=== PATIENT | female | born 1970 | race Two or more races ===

== ENCOUNTER → 2020-09-05 13:30 | Outpatient (BNVA) | payer OTHER, SELFPAY | PROVIDERS: Visit Provider Internal Medicine | DX: E03.9 Hypothyroidism, unspecified (principal); E04.9 Nontoxic goiter, unspecified; E83.52 Hypercalcemia; Z79.899 Other long term (current) drug therapy | CPT/HCPCS: 99214 ==

== ENCOUNTER → 2020-10-13 12:46 | Outpatient (BNVA) | payer OTHER, SELFPAY | PROVIDERS: PCP Family Medicine; Visit Provider Anesthesiology | DX: E04.2 Nontoxic multinodular goiter (principal); M46.1 Sacroiliitis, not elsewhere classified; E66.01 Morbid (severe) obesity due to excess calories | CPT/HCPCS: 99202 ==

== ENCOUNTER 2020-10-28 12:36 | Outpatient (REF) | payer OTHER, SELFPAY ==
--- NOTE | 2020-10-28 12:39 | CT_ITS ---
EXAMINATION: CT SOFT TISSUE NECK WITH CONTRAST CLINICAL INFORMATION: Nontoxic goiter. Enlarged lymph nodes. COMPARISON: Thyroid ultrasound from 07/13/2020. CT neck from 05/20/2020. TECHNIQUE: Multidetector helical imaging was performed in the axial plane following the administration of 60 mL of Omnipaque 350 intravenous contrast. Multiple axial reformats and coronal/sagittal reconstructions were created the technologist workstation for review. This CT examination was performed using dose optimization techniques as appropriate, variously including the following: *Automated exposure control. *Adjustment of mA and/or kV according to patient size (this includes techniques or standardized protocols for targeted exams where dose is matched to indication/reason for exam; i.e. extremities or head). *Use of iterative reconstruction technique. DLP: 401 mGy-cm FINDINGS: Generalized enlargement of a relatively homogeneous thyroid gland (left lobe 3.2 x 2.2 x 6.7 cm and right lobe 3.6 x 1.8 x 7.2 cm). No focal lesions demonstrated. A mildly prominent right level Ib lymph node measures up to 1.3 cm. A cluster of mildly prominent left level Ib lymph nodes are unchanged compared to 05/20/2020. Mildly prominent right level IIa lymph node measures up to 1.4 cm. A mildly prominent left level III lymph node measures up to 1 cm. Otherwise, scattered shotty subcentimeter lymph nodes bilaterally may be slightly increased in number but remain non-pathologically enlarged without abnormal enhancement. Otherwise, No significant cutaneous thickening or subcutaneous inflammation. No discrete fluid collection within the deep tissues of the neck. The premaxillary, retromaxillary, pterygopalatine fossa, orbital apical, parapharyngeal, and prelaryngeal adipose tissue is maintained. Normal appearance of the parotid and submandibular glands. No focal lesion or abnormal enhancement within the intrinsic tissues of the tongue or floor of mouth. Mild prominence of the palatine tonsils with partial narrowing of the oral airway. No focal tonsillar lesion or collection demonstrated. Otherwise, normal mucosal contours of the pharynx and larynx without abnormal enhancement. Normal appearance of the hyoid bone, thyroid cartilage, or cartilaginous trachea. The remainder of the airway remains widely patent. No radiopaque foreign bodies. The atlantooccipital and atlantoaxial articulations remain well aligned. There is anatomic alignment of the vertebral bodies and posterior elements. No evidence of acute fracture or subluxation of the cervical spine. The vertebral body heights are maintained. Mild multilevel degenerative spinal arthropathy of the cervical spine with mild to moderate degenerative disc disease at C5-C6 and C6-C7. No evidence of epidural collection. There is no prevertebral soft tissue swelling. Normal opacification of the cervical arterial and venous structures. The visualized portion of the skull base is without significant abnormalities. Mild mucosal thickening of the paranasal sinuses. Mild rightward nasal septal deviation. The mastoids are congenitally underpneumatized. Trace bilateral mastoid effusions. Prominent odontogenic cyst associated with the root of the maxillary right lateral incisor. CT Upper Chest: The visualized lung apices and upper mediastinum are within normal limits. CT/CT soft tissue neck w con IMPRESSION: 1. Generalized homogeneous enlargement of the thyroid gland, similar to prior exams. 2. Mildly prominent upper cervical chain lymph nodes are unchanged compared to 05/20/2020. No new pathologically enlarged cervical lymphadenopathy. 3. Redemonstrated odontogenic cyst associated with the maxillary right lateral incisor.
[2020-10-28] MEDS: iohexoL 350 MG/ML 100 ML INFUS..BTL IV (13:51)
== END 2020-10-28 12:37 | disposition home or self-care (01) ==
LOC: HO.CT 12:36
PROVIDERS: PCP Family Medicine; Visit Provider Family Medicine
DX: R59.9 Enlarged lymph nodes, unspecified (principal)
CPT/HCPCS: 70491; Q9967

== ENCOUNTER → 2020-10-31 07:56 | Outpatient (BNVA) | payer OTHER, SELFPAY | PROVIDERS: PCP Family Medicine; Visit Provider Internal Medicine | DX: Z13.89 Encounter for screening for other disorder (principal) | CPT/HCPCS: Q3014 ==

== ENCOUNTER 2020-11-10 13:09 | Outpatient (REF) | payer OTHER, SELFPAY | END 2020-11-10 13:10 | disposition home or self-care (01) | LOC: HO.LAB 13:09 | PROVIDERS: PCP Family Medicine; Visit Provider Internal Medicine | DX: Z20.828 Contact with and (suspected) exposure to other viral communicable diseases (principal) | CPT/HCPCS: C9803; U0003 ==

== ENCOUNTER 2020-12-13 12:32 | Outpatient (REF) | payer OTHER, SELFPAY ==
--- NOTE | 2020-12-13 12:41 | ECG_ITS ---
Test Reason : PREPROC EXAM Blood Pressure : / mmHG Vent. Rate : 082 BPM Atrial Rate : 082 BPM P-R Int : 174 ms QRS Dur : 110 ms QT Int : 398 ms P-R-T Axes : 065 -15 060 degrees QTc Int : 464 ms Normal sinus rhythm with sinus arrhythmia Incomplete right bundle branch block Borderline ECG When compared with ECG of 18-JUN-2013 14:13, Incomplete right bundle branch block is now Present Referred By: Linda Murphy Electronically Signed By:ISIDRA SALAZAR MD
--- NOTE | 2020-12-13 12:57 | XR_ITS ---
EXAMINATION: XR CHEST CLINICAL INFORMATION: Laura deficiency related endometrial goiter COMPARISON: Chest x-ray 07/13/2020 TECHNIQUE: 2 views of the chest were obtained. FINDINGS: No significant abnormality is noted involving the heart, lungs, mediastinum, bony thorax or soft tissues. XR/XR chest 2V IMPRESSION: Unremarkable chest examination. No change from 07/13/2020
[2020-12-13 14:20] LABS: Hematocrit 38.6 % (37-47); Hemoglobin 12.7 g/dl (12.0-16.0); Mean Corpuscular HGB Conc 32.9 g/dl (31.0-35.0); Mean Corpuscular Hemoglobin 28.1 pg (27.0-33.0); Mean Corpuscular Volume 85.4 fL (80-98); Mean Platelet Volume 10.3 fL (9.4-12.3); Platelet Count 334 X10*3/uL (160-400); Red Blood Count 4.52 X10*6/uL (4.20-5.50); Red Cell Distribution Width 12.7 % (11.0-16.0); White Blood Count 15.7 X10*3/uL (4.8-10.8)
[2020-12-13 14:44] LABS: Alanine Aminotransferase 39 U/L (0-31); Albumin Level 4.4 g/dL (3.5-5.0); Alkaline Phosphatase 94 U/L (39-117); Anion Gap 14 (12-20); Aspartate Amino Transferase 23 U/L (5-31); Bilirubin Total 0.5 mg/dL (0.0-1.0); Blood Urea Nitrogen 11 mg/dL (9-16); Calcium 9.8 mg/dL (8.4-10.2); Carbon Dioxide 26 mmol/L (22-29); Chloride 101 mmol/L (96-108); Estimated Glomerular Filt Rate > 60; Glucose Random 140 mg/dL (60-115); Sodium 137 mmol/L (135-145); Total Protein 7.4 g/dL (6.5-8.0)
== END 2020-12-13 12:33 | disposition home or self-care (01) ==
LOC: HO.LAB 12:32
PROVIDERS: Absent Provider Family Medicine; PCP Family Medicine; Visit Provider Family Medicine
DX: Z01.818 Encounter for other preprocedural examination (principal); E01.0 Iodine-deficiency related diffuse (endemic) goiter
CPT/HCPCS: 36415; 71046; 80053; 85027; 93005

== ENCOUNTER 2020-12-27 12:47 | Outpatient (REF) | payer OTHER, SELFPAY ==
--- NOTE | ~2020-12-27 | XR_ITS ---
EXAMINATION: XR RIBS, RIGHT CLINICAL INFORMATION: Pleurodynia. Rib pain for 5 months COMPARISON: Chest x-ray 12/13/2020 TECHNIQUE: 3 views of the right ribs were obtained. FINDINGS: Lungs are clear. No consolidation, pneumothorax, or pleural effusion. The cardiomediastinal silhouette and pulmonary vasculature are normal. Osseous structures are unremarkable. Ribs are intact. No fractures are identified. XR/XR ribs RT 2V IMPRESSION: No displaced right rib fracture.
[2020-12-27 14:10] LABS: Hematocrit 36.9 % (37-47); Hemoglobin 12.2 g/dl (12.0-16.0); Mean Corpuscular HGB Conc 33.1 g/dl (31.0-35.0); Mean Corpuscular Hemoglobin 28.5 pg (27.0-33.0); Mean Corpuscular Volume 86.2 fL (80-98); Platelet Count 327 X10*3/uL (160-400); Red Blood Count 4.28 X10*6/uL (4.20-5.50); Red Cell Distribution Width 13.1 % (11.0-16.0); White Blood Count 13.7 X10*3/uL (4.8-10.8)
[2020-12-27 14:15] LABS: Glucose Urine UA NEG (NEG); Leukocyte Esterase Urine TRACE (NEG); Nitrite Urine NEG (NEG); Specific Gravity - Urine <= 1.005 (1.005-1.025); Urine Blood NEG (NEG); Urine Ketones NEG (NEG); Urine Protein NEG (NEG-TRACE)
[2020-12-27 14:16] LABS: Appearance Urine CLEAR; Color Urine STRAW
[2020-12-27 14:36] LABS: Creatinine Urine 31.93 mg/dL; Microalbumin Urine < 5.0 mg/L
[2020-12-27 14:37] LABS: Estimated Average Glucose 180 mg/dL; Hemoglobin A1c % 7.9 %
[2020-12-27 14:38] LABS: Bacteria Urine TRACE /LPF; RBC Urine 0 /HPF (0); Squamous Epithelial Cell Urine 2+ /LPF; WBC Urine 0-2 /HPF (0-4)
[2020-12-27 14:41] LABS: Albumin Level 4.1 g/dL (3.5-5.0); Calcium 8.9 mg/dL (8.4-10.2); Phosphorus 2.6 mg/dL (2.7-4.5)
[2020-12-27 14:43] LABS: Alanine Aminotransferase 30 U/L (0-31); Albumin Level 4.1 g/dL (3.5-5.0); Alkaline Phosphatase 84 U/L (39-117); Anion Gap 13 (12-20); Aspartate Amino Transferase 19 U/L (5-31); Bilirubin Direct < 0.2 mg/dL (0.0-0.5); Bilirubin Total 0.4 mg/dL (0.0-1.0); Blood Urea Nitrogen 10 mg/dL (9-16); Calcium 8.7 mg/dL (8.4-10.2); Carbon Dioxide 27 mmol/L (22-29); Chloride 100 mmol/L (96-108); Cholesterol 112 mg/dL; Estimated Glomerular Filt Rate 59; Glucose Random 216 mg/dL (60-115); HDL Cholesterol 33 mg/dL; LDL Cholesterol Calculated 42 mg/dl; Sodium 136 mmol/L (135-145); Total Protein 6.7 g/dL (6.5-8.0); Triglycerides 189 mg/dL
[2020-12-27 14:58] LABS: Free T4 (Free Thyroxine) 1.37 ng/dL (0.71-1.85); Vitamin D 25-OH Total 46.1 ng/mL (>30)
[2020-12-27 15:07] LABS: Free T4 (Free Thyroxine) 1.24 ng/dL (0.71-1.85); Thyroid Stimulating Hormone 0.01 uIU/mL (0.32-4.0)
[2020-12-28 10:22] LABS: PTHI 42 pg/mL (14-64)
[2020-12-28 11:11] LABS: Alpha Fetoprotein 2.6 ng/mL
== END 2020-12-27 12:48 | disposition home or self-care (01) ==
LOC: HO.LAB 12:47
PROVIDERS: Absent Provider Internal Medicine; PCP Family Medicine; Visit Provider Family Medicine
DX: E83.52 Hypercalcemia (principal); E03.9 Hypothyroidism, unspecified; E04.2 Nontoxic multinodular goiter; R07.81 Pleurodynia; E11.9 Type 2 diabetes mellitus without complications
CPT/HCPCS: 36415; 71100; 80048; 80061; 80076; 81001; 82040; 82043; 82105; 82306; 82310; 83036; 83970; 84100; 84439; 84443; 85027

== ENCOUNTER → 2021-01-19 08:51 | Outpatient (BNVA) | payer OTHER, SELFPAY | PROVIDERS: PCP Family Medicine; Visit Provider Internal Medicine | DX: E04.9 Nontoxic goiter, unspecified (principal); E03.9 Hypothyroidism, unspecified; E83.52 Hypercalcemia | CPT/HCPCS: 99212 ==

== ENCOUNTER → 2021-04-24 08:54 | Outpatient (BNVA) | payer OTHER, SELFPAY | PROVIDERS: Visit Provider Internal Medicine | CPT/HCPCS: Q3014 ==

== ENCOUNTER 2021-05-02 13:14 | Outpatient (REF) | payer OTHER, SELFPAY ==
[2021-05-02 14:42] LABS: Alanine Aminotransferase 25 U/L (0-31); Albumin Level 4.3 g/dL (3.5-5.0); Alkaline Phosphatase 107 U/L (39-117); Anion Gap 12 (12-20); Aspartate Amino Transferase 18 U/L (5-31); Bilirubin Total 0.4 mg/dL (0.0-1.0); Blood Urea Nitrogen 11 mg/dL (9-16); Calcium 9.7 mg/dL (8.4-10.2); Carbon Dioxide 28 mmol/L (22-29); Chloride 104 mmol/L (96-108); Estimated Glomerular Filt Rate 45; Glucose Random 119 mg/dL (60-115); Potassium 4.2 mmol/L (3.3-5.1); Sodium 140 mmol/L (135-145); Total Protein 7.1 g/dL (6.5-8.0)
[2021-05-02 15:04] LABS: Vitamin D 25-OH Total 47.6 ng/mL (>30)
[2021-05-03 14:27] LABS: Calcium (PTHI) 9.7 mg/dL (8.6-10.2); PTHI 21 pg/mL (14-64)
== END 2021-05-02 13:15 | disposition home or self-care (01) ==
LOC: HO.LAB 13:14
PROVIDERS: Absent Provider Surgery; PCP Family Medicine; Referring Provider Internal Medicine; Visit Provider Internal Medicine
DX: E55.9 Vitamin D deficiency, unspecified (principal); E89.0 Postprocedural hypothyroidism
CPT/HCPCS: 36415; 80053; 82306; 83970

== ENCOUNTER 2021-06-26 13:13 | Outpatient (REF) | payer OTHER, SELFPAY ==
[2021-06-26 14:22] LABS: Albumin Level 4.3 g/dL (3.5-5.0); Calcium 9.3 mg/dL (8.4-10.2)
[2021-06-26 14:51] LABS: Free T4 (Free Thyroxine) 0.72 ng/dL (0.71-1.85); Thyroid Stimulating Hormone 28.57 uIU/mL (0.32-4.0)
[2021-06-27 16:31] LABS: Calcium (PTHI) 9.5 mg/dL (8.6-10.2); PTHI 27 pg/mL (14-64)
[2021-06-28 02:12] LABS: Thyroglobulin 0.4 ng/mL; Thyroglobulin Antibodies <1 IU/mL (< or = 1)
== END 2021-06-26 13:14 | disposition home or self-care (01) ==
LOC: HO.LAB 13:13
PROVIDERS: PCP Family Medicine; Visit Provider Internal Medicine
DX: E55.9 Vitamin D deficiency, unspecified (principal); Z85.850 Personal history of malignant neoplasm of thyroid
CPT/HCPCS: 36415; 82040; 82310; 83970; 84432; 84439; 84443; 86800

== ENCOUNTER → 2021-07-26 07:57 | Outpatient (BNVA) | payer OTHER, SELFPAY | PROVIDERS: PCP Family Medicine; Visit Provider Internal Medicine | DX: E55.9 Vitamin D deficiency, unspecified (principal); E89.0 Postprocedural hypothyroidism; Z85.850 Personal history of malignant neoplasm of thyroid | CPT/HCPCS: Q3014 ==

== ENCOUNTER 2021-07-27 13:18 | Outpatient (REF) | payer OTHER, SELFPAY ==
--- NOTE | ~2021-07-27 | US_ITS ---
EXAMINATION: US PELVIS CLINICAL INFORMATION: Pelvic pain COMPARISON: CT pelvis from 10/23/2019. Ultrasound pelvis from 11/19/2019. TECHNIQUE: Ultrasound of the pelvis is performed using both transabdominal and transvaginal transducers along with color Doppler. Transvaginal imaging is performed due to inadequate visualization transabdominally. FINDINGS: Uterus: The uterus is anteverted and anteflexed. It measures approximately 9.9 x 4.4 x 4.8 cm (cervix to fundus x AP x transverse dimensions). The endometrium has normal homogeneous echotexture and measures up to 1.1 cm AP. No evidence of endometrial polyp. 0.9 x 1 x 0.9 cm fibroid of heterogeneous, predominantly hyperechoic echotexture is present in the anterior uterine body. A small 0.9 x 0.4 0.8 cm hypoechoic structure in the lower posterior uterine body might represent a degenerated leiomyoma. No suspicious uterine lesion. Adnexa: The right ovary is obscured by bowel on the transvaginal images. On the transabdominal images, the right ovary has normal echotexture and measures 2.7 x 1.5 x 2.3 cm, volume of 4.9 mL. No ovarian mass. The left ovary measures 2.6 x 2.3 x 2.7 cm, volume of 8.5 mL. A 2 x 1.8 x 1.6 cm simple cyst is present within the left ovary. Previously, simple cyst measuring up to 2.8 cm was observed in the left ovary on 11/19/2019. This cyst is almost certainly benign. No follow-up imaging is recommended for an asymptomatic ovarian cyst. Free fluid: None detected. US/US pelvic and transvaginal IMPRESSION: * Small uterine leiomyomas. * Simple cyst of the left ovary has decreased in size compared to 11/19/2019. No suspicious ovarian lesion.
[2021-07-27 15:06] LABS: Free T4 (Free Thyroxine) 0.76 ng/dL (0.71-1.85); Thyroid Stimulating Hormone 56.13 uIU/mL (0.32-4.0)
[2021-07-28 17:32] LABS: Thyroglobulin 0.7 ng/mL; Thyroglobulin Antibodies <1 IU/mL (< or = 1)
== END 2021-07-27 13:19 | disposition home or self-care (01) ==
LOC: HO.US 13:18
PROVIDERS: Internal Medicine; PCP Family Medicine; Visit Provider Emergency Medicine
DX: R10.2 Pelvic and perineal pain (principal); Z85.850 Personal history of malignant neoplasm of thyroid
CPT/HCPCS: 36415; 76830; 76856; 84432; 84439; 84443; 86800

== ENCOUNTER 2021-08-30 10:16 | Outpatient (REF) | payer OTHER, SELFPAY ==
[2021-08-30 11:55] LABS: Free T4 (Free Thyroxine) 0.88 ng/dL (0.71-1.85); Thyroid Stimulating Hormone 82.48 uIU/mL (0.32-4.0)
[2021-09-01 04:06] LABS: Triiodothyronine T3 Total 67 ng/dL (76-181)
== END 2021-08-30 10:17 | disposition home or self-care (01) ==
LOC: HO.LAB 10:16
PROVIDERS: Visit Provider Internal Medicine
DX: E03.9 Hypothyroidism, unspecified (principal)
CPT/HCPCS: 36415; 84439; 84443; 84480

== ENCOUNTER 2021-09-29 10:38 | Outpatient (REF) | payer OTHER, SELFPAY ==
[2021-09-29 11:55] LABS: Free T4 (Free Thyroxine) 0.85 ng/dL (0.71-1.85); HCG Quantitative < 2 mIU/mL; Thyroid Stimulating Hormone 78.36 uIU/mL (0.32-4.0)
[2021-10-02 19:47] LABS: Thyroglobulin 2.6 ng/mL; Thyroglobulin Antibodies <1 IU/mL (< or = 1)
== END 2021-09-29 10:39 | disposition home or self-care (01) ==
LOC: HO.LAB 10:38
PROVIDERS: PCP Family Medicine; Visit Provider Internal Medicine
DX: E89.0 Postprocedural hypothyroidism (principal)
CPT/HCPCS: 36415; 84432; 84439; 84443; 84702; 86800

== ENCOUNTER 2021-11-15 13:46 | Outpatient (REF) | payer OTHER, SELFPAY ==
[2021-11-15 15:10] LABS: Phosphorus 2.4 mg/dL (2.7-4.5)
[2021-11-15 15:34] LABS: Free T4 (Free Thyroxine) 0.85 ng/dL (0.71-1.85); Thyroid Stimulating Hormone 90.49 uIU/mL (0.32-4.0); Vitamin D 25-OH Total 50.8 ng/mL (>30)
[2021-11-16 12:26] LABS: Calcium (PTHI) 9.2 mg/dL (8.6-10.2); PTHI 38 pg/mL (14-64)
[2021-11-16 19:42] LABS: Thyroglobulin 6.6 ng/mL; Thyroglobulin Antibodies <1 IU/mL (< or = 1)
== END 2021-11-15 13:47 | disposition home or self-care (01) ==
LOC: HO.LAB 13:46
PROVIDERS: PCP Family Medicine; Visit Provider Internal Medicine
DX: E55.9 Vitamin D deficiency, unspecified (principal); Z85.850 Personal history of malignant neoplasm of thyroid
CPT/HCPCS: 36415; 82306; 83970; 84100; 84432; 84439; 84443; 86800

== ENCOUNTER → 2021-11-22 08:01 | Outpatient (BNVA) | payer OTHER, SELFPAY | PROVIDERS: PCP Family Medicine; Visit Provider Internal Medicine | DX: E89.0 Postprocedural hypothyroidism (principal); E55.9 Vitamin D deficiency, unspecified; Z85.850 Personal history of malignant neoplasm of thyroid | CPT/HCPCS: Q3014 ==

== ENCOUNTER 2021-11-29 13:59 | Outpatient (REF) | payer OTHER, SELFPAY ==
[2021-11-29 14:28] LABS: MANUAL DIFF FLAG NO
[2021-11-29 14:43] LABS: Basophils Percent Auto 0.4 % (0-2); Eosinophils Absolute Auto 0.2 X10*3/uL (0.0-0.4); Eosinophils Percent Auto 1.7 % (0-4); Hematocrit 34.6 % (37.0-47.0); Hemoglobin 11.6 g/dl (12.0-16.0); Imm Gran Abs Auto 0.05 X10*3/uL (0.00-0.03); Imm Gran Pct Auto 0.5 % (0.0-0.4); Lymphocytes Absolute Auto 2.5 X10*3/uL (1.2-4.9); Lymphocytes Percent Auto 24.2 % (20-40); Mean Corpuscular HGB Conc 33.5 g/dl (31.0-35.0); Mean Corpuscular Hemoglobin 28.8 pg (27.0-33.0); Mean Corpuscular Volume 85.9 fL (80.0-98.0); Mean Platelet Volume 9.9 fL (9.4-12.3); Monocytes Absolute Auto 0.8 X10*3/uL (0.1-1.2); Monocytes Percent Auto 7.4 % (2-11); Neutrophils Absolute Auto 6.8 x10*3/uL (2.0-8.3); Neutrophils Percent Auto 65.8 % (45-73); Platelet Count 296 X10*3/uL (160-400); Red Blood Count 4.03 X10*6/uL (4.20-5.50); Red Cell Distribution Width 13.6 % (11.0-16.0); White Blood Count 10.3 X10*3/uL (4.8-10.8)
[2021-11-29 14:50] LABS: Estimated Average Glucose 169 mg/dL; Hemoglobin A1c % 7.5 %
[2021-11-29 15:03] LABS: Alanine Aminotransferase 25 U/L (0-31); Albumin Level 4.1 g/dL (3.5-5.0); Alkaline Phosphatase 86 U/L (39-117); Anion Gap 14 (12-20); Aspartate Amino Transferase 20 U/L (5-31); Bilirubin Direct < 0.2 mg/dL (0.0-0.5); Bilirubin Total 0.2 mg/dL (0.0-1.0); Blood Urea Nitrogen 13 mg/dL (9-16); Calcium 9.6 mg/dL (8.4-10.2); Carbon Dioxide 27 mmol/L (22-29); Chloride 100 mmol/L (96-108); Cholesterol 138 mg/dL; Estimated Glomerular Filt Rate 46; Glucose Random 194 mg/dL (60-115); HDL Cholesterol 36 mg/dL; LDL Cholesterol Calculated 45 mg/dl; Potassium 4.2 mmol/L (3.3-5.1); Sodium 137 mmol/L (135-145); Total Protein 7.2 g/dL (6.5-8.0); Triglycerides 289 mg/dL
[2021-11-29 15:21] LABS: Immature Retic Fraction 24.4 % (3.0-15.9); Retic HGB Equivalent 32.3 pg (30.0-35.0); Reticulocyte Percent 2.5 % (0.5-1.8); Reticulocytes Absolute 0.102 X10*6/uL (0.026-0.095)
[2021-11-29 15:24] LABS: Thyroid Stimulating Hormone 0.36 uIU/mL (0.32-4.0); Vitamin D 25-OH Total 42.7 ng/mL (>30)
[2021-11-29 15:35] LABS: Iron 51 mcg/dL (30-160); Percent Iron Saturation 16 % (15-50); Total Iron Binding Capacity 315 mcg/dL (228-428); Unsaturated Iron Binding 264 ug/dL
[2021-11-29 15:36] LABS: Folate > 20.0 ng/mL (> or = 4.0); Vitamin B12 326 pg/mL (200-900)
[2021-11-29 16:01] LABS: Creatinine Urine 28.63 mg/dL; Microalbumin Urine < 5.0 mg/L
[2021-12-01 13:00] LABS: Alpha Fetoprotein 2.6 ng/mL
== END 2021-11-29 14:00 | disposition home or self-care (01) ==
LOC: HO.LAB 13:59
PROVIDERS: Internal Medicine; PCP Family Medicine; Visit Provider Family Medicine
DX: D64.9 Anemia, unspecified (principal); D72.829 Elevated white blood cell count, unspecified; E11.9 Type 2 diabetes mellitus without complications; E78.5 Hyperlipidemia, unspecified; K76.0 Fatty (change of) liver, not elsewhere classified
CPT/HCPCS: 36415; 80048; 80061; 80076; 82043; 82105; 82306; 82607; 82746; 83036; 83540; 84439; 84443; 85025; 85045

== ENCOUNTER 2021-12-29 11:36 | Outpatient (REF) | payer OTHER, SELFPAY ==
--- NOTE | ~2021-12-29 | XR_ITS ---
EXAMINATION: XR LUMBOSACRAL SPINE CLINICAL INFORMATION: Low back pain and left-sided sciatica COMPARISON: Previous x-ray December 2019 TECHNIQUE: Three views of the lumbosacral spine. FINDINGS: There is a transitional vertebral body segment. For the purposes of this dictation, segments are designated with the transitional segment inferiorly with sacralization of the left transverse process. Bone alignment is normal. No fracture or dislocation is seen. There is mild spondylosis and degenerative disc disease at L4-L5. There is mild degenerative spondylosis at L2-L3 and L3-L4. There is lower lumbar spine facet arthritis. XR/XR lumbar spine 2-3V IMPRESSION: Transitional anatomy. Degenerative changes, greatest at the L4-L5 level..
[2021-12-29 14:46] LABS: Free T4 (Free Thyroxine) 0.74 ng/dL (0.71-1.85); Thyroid Stimulating Hormone 60.39 uIU/mL (0.32-4.0)
== END 2021-12-29 11:37 | disposition home or self-care (01) ==
LOC: HO.LAB 11:36
PROVIDERS: Absent Provider Internal Medicine; PCP Family Medicine; Visit Provider Family Medicine
DX: M54.42 Lumbago with sciatica, left side (principal); E89.0 Postprocedural hypothyroidism
CPT/HCPCS: 36415; 72100; 84439; 84443

== ENCOUNTER 2022-01-25 15:11 | Emergency (ER) | payer OTHER, SELFPAY ==
--- NOTE | ~2022-01-25 | CT_ITS ---
EXAMINATION: CT ABDOMEN AND PELVIS WITH CONTRAST CLINICAL INFORMATION: Abdominal discomfort. Abdominal distention. COMPARISON: CT scan abdomen 10/23/2019 TECHNIQUE: Multidetector volumetric images were obtained from the superior aspect of the liver through the pubic symphysis following administration 85 mL of Omnipaque 350 intravenous contrast. Sagittal and coronal reformatted images were obtained on the technologist's workstation. Oral contrast: No This CT examination was performed using dose optimization techniques as appropriate, variously including the following: *Automated exposure control *Adjustment of mA and/or kV according to patient size (this includes techniques or standardized protocols for targeted exams where dose is matched to indication/reason for exam; i.e. extremities or head) *Use of iterative reconstruction technique DLP: 702 mGy-cm FINDINGS: LUNG BASES: The visualized lung bases are unremarkable. LIVER, GALLBLADDER, AND BILIARY TREE: The liver is normal in size, shape, and attenuation. No focal hepatic lesion or biliary ductal dilatation is present. Status post cholecystectomy PANCREAS: Unremarkable. SPLEEN: Unremarkable. ADRENAL GLANDS: Unremarkable. KIDNEYS AND URETERS: The kidneys are normal in size, shape, and attenuation. No hydronephrosis, hydroureter, or calculi seen. No perinephric stranding. BLADDER: Unremarkable. GASTROINTESTINAL TRACT: The small and large bowel are unremarkable. The appendix is unremarkable. ABDOMINAL WALL: No significant hernia is appreciated. LYMPH NODES: Normal. VASCULAR: Unremarkable. PELVIC VISCERA: Unremarkable. OSSEOUS STRUCTURES: Unremarkable. CT/CT abdomen pelvis w con IMPRESSION: No significant abnormality. Fleischner guidelines were followed.
[2022-01-25 15:15] VITALS: BP 136/63; PULSE 97; RESP 17; TEMP 36.6; O2SAT 99; BMI 36.8
[2022-01-25 15:39] LABS: MANUAL DIFF FLAG NO
[2022-01-25 15:41] LABS: Basophils Percent Auto 0.4 % (0-2); Eosinophils Absolute Auto 0.2 X10*3/uL (0.0-0.4); Eosinophils Percent Auto 1.7 % (0-4); Hematocrit 35.7 % (37.0-47.0); Hemoglobin 11.7 g/dl (12.0-16.0); Imm Gran Abs Auto 0.06 X10*3/uL (0.00-0.03); Imm Gran Pct Auto 0.6 % (0.0-0.4); Lymphocytes Percent Auto 27.6 % (20-40); Mean Corpuscular HGB Conc 32.8 g/dl (31.0-35.0); Mean Corpuscular Hemoglobin 28.4 pg (27.0-33.0); Mean Corpuscular Volume 86.7 fL (80.0-98.0); Mean Platelet Volume 9.8 fL (9.4-12.3); Monocytes Absolute Auto 0.8 X10*3/uL (0.1-1.2); Neutrophils Absolute Auto 6.8 x10*3/uL (2.0-8.3); Neutrophils Percent Auto 62.7 % (45-73); Platelet Count 307 X10*3/uL (160-400); Red Blood Count 4.12 X10*6/uL (4.20-5.50); Red Cell Distribution Width 13.2 % (11.0-16.0); White Blood Count 10.8 X10*3/uL (4.8-10.8)
[2022-01-25 15:46] LABS: Appearance Urine CLEAR; Color Urine STRAW; Glucose Urine UA NEG (NEG); Leukocyte Esterase Urine 3+ (NEG); Nitrite Urine NEG (NEG); Specific Gravity - Urine <= 1.005 (1.005-1.025); UACC Culture Trigger YES; Urine Blood TRACE (NEG); Urine Ketones NEG (NEG); Urine Protein NEG (NEG-TRACE)
[2022-01-25 15:58] LABS: RBC Urine 0-2 /HPF (0)
[2022-01-25 16:09] LABS: Alanine Aminotransferase 32 U/L (0-31); Albumin Level 4.4 g/dL (3.5-5.0); Alkaline Phosphatase 97 U/L (39-117); Anion Gap 14 (12-20); Aspartate Amino Transferase 23 U/L (5-31); Bilirubin Direct < 0.2 mg/dL (0.0-0.5); Bilirubin Total < 0.2 mg/dL (0.0-1.0); Blood Urea Nitrogen 7 mg/dL (9-16); Calcium 9.3 mg/dL (8.4-10.2); Carbon Dioxide 31 mmol/L (22-29); Chloride 99 mmol/L (96-108); Estimated Glomerular Filt Rate 52; Glucose Random 158 mg/dL (60-115); Lipase 72 U/L (8-78); Potassium 4.4 mmol/L (3.3-5.1); Sodium 140 mmol/L (135-145); Total Protein 7.7 g/dL (6.5-8.0)
[2022-01-25 20:18] VITALS: BP 112/66; PULSE 97; RESP 12; TEMP 36.8; O2SAT 95
--- NOTE | 2022-01-25 21:26 | ED_ITS ---
HPI - Abdominal Pain General Chief Complaint: Abdominal Pain Stated Complaint: abd pain Time Seen by Provider: 01/25/22 21:26 Source: patient Mode of arrival: ambulatory History of Present Illness HPI narrative: 11-year-old female with history of hypertension, diabetes, asthma who presents with 6 months of abdominal discomfort that she identifies in the mid abdomen and has not been associated with unexplained weight loss, fevers, chills, nausea, vomiting, obstipation, and she has continued to have daily bowel movements and denies any urinary symptoms. Patient does describe that her abdomen has increased in girth and that she is status post cholecystectomy and denies any alcohol use. Related Data Home Medications Medication Instructions Recorded Confirmed aripiprazole 15 mg tablet (Abilify) 20 mg PO DAILY 09/05/20 11/29/21 clonazepam 1 mg tablet (Klonopin) 1 mg PO TID PRN 09/05/20 11/29/21 ferrous fumarate 324 mg (106 mg 324 mg PO BID 09/05/20 11/29/21 iron) tablet (Ferrocite) lisinopril 2.5 mg tablet 2.5 mg PO DAILY 09/05/20 11/29/21 metformin 500 mg tablet,extended 1,000 mg PO BID 09/05/20 11/29/21 release 24 hr montelukast 10 mg tablet 10 mg PO BEDTIME 09/05/20 11/29/21 (Singulair) vit no.95-ferrous 1 tab PO DAILY 09/05/20 11/29/21 fumarate 28 mg-folic acid 800 mcg tablet tramadol 50 mg tablet (Ultram) 50 mg PO Q8H PRN 09/05/20 11/29/21 trazodone 100 mg tablet 100 mg PO BEDTIME 09/05/20 11/29/21 omeprazole 20 mg capsule,delayed 20 mg PO DAILY cap 10/31/20 11/29/21 release bupropion HCl 150 mg 24 hr tablet, 150 mg PO DAILY 01/19/21 11/29/21 extended release (Wellbutrin XL) acetaminophen 650 mg 650 mg PO Q8H PRN tab 04/24/21 11/29/21 tablet,extended release albuterol sulfate 90 mcg/actuation 2 puff INHALATION ONCE PRN g 04/24/21 11/29/21 aerosol inhaler alcohol swabs 0 pad TOPICAL DAILY 04/24/21 11/29/21 atorvastatin 40 mg tablet 40 mg PO DAILY tab 04/24/21 11/29/21 benztropine 1 mg tablet 1 mg PO DAILY 04/24/21 11/29/21 cetirizine 10 mg tablet (Zyrtec) 10 mg PO BEDTIME tab 04/24/21 11/29/21 fluticasone propionate 110 2 puff INHALATION BID 04/24/21 11/29/21 mcg/actuation HFA aerosol inhaler (Flovent HFA) fluticasone propionate 50 2 spray INTRANASAL DAILY PRN g 04/24/21 11/29/21 mcg/actuation nasal spray,suspension (Flonase Allergy Relief) glipizide 5 mg tablet 5 mg PO BID 04/24/21 11/29/21 haloperidol 5 mg tablet See Rx Instructions PO BID tab 04/24/21 11/29/21 methocarbamol 750 mg tablet 750 mg PO TID 04/24/21 11/29/21 Previous Rx's Medication Instructions Recorded levothyroxine 200 mcg tablet 1,400 mcg PO .once a week 28 Days 01/03/22 #28 tab sulfamethoxazole 800 1 tab PO Q12H 3 Days #6 tab 01/25/22 mg-trimethoprim 160 mg tablet (Bactrim DS) Allergies Allergy/AdvReac Type Severity Reaction Status Date / Time acetaminophen [Percocet] Allergy Unknown Stomach Verified 11/29/21 14:45 Cramps. oxycodone [Percocet] Allergy Unknown stomach Verified 11/29/21 14:45 pain SEASONAL ALLERGIES Allergy Unknown UNKNOWN Uncoded 11/29/21 14:45 From PERCOCET AdvReac Unknown CRAMPS Uncoded 11/29/21 14:45 Review of Systems Review of Systems Pertinent positives and negatives as stated in HPI 10 point review of systems is otherwise negative. [facility] Past Medical History Source: nursing notes reviewed Medical History Bipolar 1 disorder COPD (chronic obstructive pulmonary disease) GERD (gastroesophageal reflux disease) Goiter History of thyroid cancer HLD (hyperlipidemia) Hypercalcemia Hypothyroidism Morbid obesity Multinodular goiter Postoperative hypothyroidism Sacroiliitis T2DM (type 2 diabetes mellitus) Vitamin D deficiency Surgical History Hx of cholecystectomy Hx of total thyroidectomy Hx of tubal ligation Family History Family History Father No problems noted. 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 GENERAL: Well developed, well nourished, in no acute distress. HEAD: Normocephalic/atraumatic EYES: PERRLA, EOMI EARS: Ext canals without abnormality NOSE: Nares patent bilateral OROPHARYNX: no oral lesions noted, posterior pharynx clear LUNGS: Normal breath sounds. No adventitious sounds or accessory muscle use. SpO2<99> CARDIOVASCULAR: Regular rate and rhythm without noted murmurs, no JVD or lower extremity edema. ABDOMEN: Soft, non-tender, non-distended with bowel sounds. MUSCULOSKELETAL: No tenderness, deformities, or effusions noted on gross inspection. EXTREMITIES: No cyanosis, clubbing or edema. SKIN: Inspection of the skin reveals no rashes NEUROLOGIC: Alert and oriented x 4. Strength and sensation to light touch were grossly intact x 4. Course Course Course Narrative: 51-year-old female with history and clinical presentation suggestive of possible constipation and doubt SBO or diverticulitis but patient does describe increasing abdominal girth and there is no presence of B symptoms. Review of all investigations negative for acute findings other than a UTI, ed gonzalesashley received initial antibiotics here in the emergency room and discussed all results and findings with her at bedside. MDM - Abdominal Pain Lab Data Result diagrams: 01/25/22 15:34 01/25/22 15:34 Labs: Lab Results 01/25/22 01/25/22 01/25/22 Range/Units 15:34 15:34 15:34 WBC 10.8 (4.8-10.8) X10*3/uL RBC 4.12 L (4.20-5.50) X10*6/uL Hgb 11.7 L (12.0-16.0) g/dl Hct 35.7 L (37.0-47.0) % MCV 86.7 (80.0-98.0) fL MCH 28.4 (27.0-33.0) pg MCHC 32.8 (31.0-35.0) g/dl RDW 13.2 (11.0-16.0) % Plt Count 307 (160-400) X10*3/uL MPV 9.8 (9.4-12.3) fL Immature Gran % (Auto) 0.6 H (0.0-0.4) % Neut % (Auto) 62.7 (45-73) % Lymph % (Auto) 27.6 (20-40) % [place] % (Auto) 7.0 (2-11) % Eos % (Auto) 1.7 (0-4) % Baso % (Auto) 0.4 (0-2) % Lymph # (Auto) 3.0 (1.2-4.9) X10*3/uL [place] # (Auto) 0.8 (0.1-1.2) X10*3/uL Eos # (Auto) 0.2 (0.0-0.4) X10*3/uL Baso # (Auto) 0.0 (0.0-0.2) X10*3/uL Abs Immat Gran (auto) 0.06 H (0.00-0.03) X10*3/uL Absolute Neuts (auto) 6.8 (2.0-8.3) x10*3/uL Absolute Nucleated RBC 0.000 (0.0-0.012) X10*3/uL Nucleated RBC % (auto) 0.0 (0.0-0.2) /100WBC Sodium 140 (135-145) mmol/L Potassium 4.4 (3.3-5.1) mmol/L Chloride 99 (96-108) mmol/L Carbon Dioxide 31 H (22-29) mmol/L Anion Gap 14 (12-20) BUN 7 L (9-16) mg/dL Creatinine 1.11 (0.5-1.4) mg/dL Estim Creat Clear Calc 77.0 Estimated GFR 52 Random Glucose 158 H (60-115) mg/dL Calcium 9.3 (8.4-10.2) mg/dL Total Bilirubin < 0.2 (0.0-1.0) mg/dL Direct Bilirubin < 0.2 (0.0-0.5) mg/dL AST 23 (5-31) U/L ALT 32 H (0-31) U/L Alkaline Phosphatase 97 (39-117) U/L Total Protein 7.7 (6.5-8.0) g/dL Albumin 4.4 (3.5-5.0) g/dL Lipase 72 (8-78) U/L TSH 13.09 H (0.32-4.0) uIU/mL Urine Color STRAW Urine Appearance CLEAR Urine pH 6.0 (5.0-8.0) Ur Specific [place] <= 1.005 (1.005-1.025) Urine Protein NEG (NEG-TRACE) MG/DL Urine Glucose (UA) NEG (NEG) MG/DL Urine Ketones NEG (NEG) MG/DL Urine Blood TRACE (NEG) Urine Nitrite NEG (NEG) Ur Leukocyte Esterase 3+ H (NEG) Urine RBC 0-2 (0) /HPF Urine WBC 5-9 H (0-4) /HPF Ur Squamous Epith Cells NONE /LPF Urine Bacteria NONE /LPF Discharge Plan Discharge Clinical Impression: UTI (urinary tract infection), Abdominal pain Patient Disposition: Home, Self-Care Instructions: Urinary Tract Infection in Women (DC), Chronic Abdominal Pain (ED) Additional Instructions: 1. Resume all home medications as prescribed. 2. Complete entire course of antibiotics for your UTI. 3. Follow-up with your primary care provider in the next 2-3 days for re- evaluation and further outpatient management. Return to the ER for worsening symptoms. Prescriptions: New sulfamethoxazole-trimethoprim [Bactrim DS] 800-160 mg tablet 1 tab PO Q12H 3 Days Qty: 6 0RF No Action levothyroxine 200 mcg tablet 1,400 mcg PO .once a week 28 Days Qty: 28 4RF aripiprazole [Abilify] 15 mg tablet 20 mg PO DAILY 0RF ferrous fumarate [Ferrocite] 324 mg (106 mg iron) tablet 324 mg PO BID 0RF lisinopril 2.5 mg tablet 2.5 mg PO DAILY 0RF metformin 500 mg tablet extended release 24 hr 1,000 mg PO BID 0RF montelukast [Singulair] 10 mg tablet 10 mg PO BEDTIME 0RF PNV cmb#95-ferrous fumarate-FA 28 mg iron- 800 mcg tablet 1 tab PO DAILY 0RF tramadol [Ultram] 50 mg tablet 50 mg PO Q8H PRN (Reason: severe pain) 0RF clonazepam [Klonopin] 1 mg tablet 1 mg PO TID PRN (Reason: Anxiety) 0RF trazodone 100 mg tablet 100 mg PO BEDTIME 0RF omeprazole 20 mg capsule,delayed release(DR/EC) 20 mg PO DAILY 0RF bupropion HCl [Wellbutrin XL] 150 mg tablet extended release 24 hr 150 mg PO DAILY 0RF atorvastatin 40 mg tablet 40 mg PO DAILY 0RF acetaminophen 650 mg tablet extended release 650 mg PO Q8H PRN (Reason: Pain) 0RF albuterol sulfate 90 mcg/actuation HFA aerosol inhaler 2 puff inhalation ONCE PRN (Reason: Wheezing) 0RF haloperidol 5 mg tablet See Rx Instructions PO BID 0RF Rx Instructions: 1/2 tab am, 1/2 tab pm PO 2 times a day; benztropine 1 mg tablet 1 mg PO DAILY 0RF methocarbamol 750 mg tablet 750 mg PO TID 0RF Flovent HFA 110 mcg/actuation HFA aerosol inhaler 2 puff inhalation BID 0RF fluticasone propionate [Flonase Allergy Relief] 50 mcg/actuation spray,suspension 2 spray intranasal DAILY PRN (Reason: Allergy Symptoms) 0RF cetirizine [Zyrtec] 10 mg tablet 10 mg PO BEDTIME 0RF glipizide 5 mg tablet 5 mg PO BID 0RF alcohol swabs Pads, Medicated 0 pad topical DAILY 0RF
--- NOTE | 2022-01-25 22:00 | PC.NURSE ---
iv placed to RAC, CT aware pt is ready for ct.
[2022-01-25] MEDS: iohexoL 350 MG/ML 100 ML INFUS..BTL IV (22:06)
[2022-01-25 22:15] LABS: Thyroid Stimulating Hormone 13.09 uIU/mL (0.32-4.0)
[2022-01-25 22:43] VITALS: BP 119/65; PULSE 86; RESP 14; TEMP 36.6; O2SAT 93
[2022-01-25] MEDS: Sulfamethox/Trimeth 800/160 TABLET 1 TAB PO (23:25)
== END 2022-01-25 23:29 | disposition home or self-care (01) ==
PROVIDERS: Emergency Provider Student in an Organized Health Care Education/Training Program
DX: N39.0 Urinary tract infection, site not specified (principal); E11.9 Type 2 diabetes mellitus without complications; E78.5 Hyperlipidemia, unspecified; Z87.891 Personal history of nicotine dependence; Z90.49 Acquired absence of other specified parts of digestive tract; Z98.51 Tubal ligation status
CPT/HCPCS: 36415; 74177; 80048; 80076; 81001; 83690; 84443; 85025; 87086; 87088; 87186; 99283; 99284; Q9967

== ENCOUNTER → 2022-01-31 09:46 | Outpatient (BNVA) | payer OTHER, SELFPAY | PROVIDERS: PCP Family Medicine; Visit Provider Internal Medicine | DX: E55.9 Vitamin D deficiency, unspecified (principal); E89.0 Postprocedural hypothyroidism; Z85.850 Personal history of malignant neoplasm of thyroid | CPT/HCPCS: Q3014 ==

== ENCOUNTER 2022-02-05 07:34 | Outpatient (REF) | payer OTHER, SELFPAY ==
[2022-02-05 09:29] LABS: Free T4 (Free Thyroxine) 0.88 ng/dL (0.71-1.85); Thyroid Stimulating Hormone 71.18 uIU/mL (0.32-4.0)
[2022-02-05 09:38] LABS: Syphilis Screen Nonreactive (Nonreactive)
[2022-02-05 12:15] LABS: Free T4 (Free Thyroxine) 0.93 ng/dL (0.71-1.85); Thyroid Stimulating Hormone 69.62 uIU/mL (0.32-4.0)
[2022-02-05 14:37] LABS: Free T4 (Free Thyroxine) 1.08 ng/dL (0.71-1.85); Thyroid Stimulating Hormone 68.45 uIU/mL (0.32-4.0)
== END 2022-02-05 07:35 | disposition home or self-care (01) ==
LOC: HO.LAB 07:34
PROVIDERS: Absent Provider Family Medicine; PCP Family Medicine; Visit Provider Internal Medicine
DX: Z00.00 Encounter for general adult medical examination without abnormal findings (principal); E89.0 Postprocedural hypothyroidism
CPT/HCPCS: 36415; 84439; 84443; 86780; 99212

== ENCOUNTER 2022-02-06 07:56 | Outpatient (REF) | payer OTHER, SELFPAY ==
[2022-02-06 09:16] LABS: Free T4 (Free Thyroxine) 0.94 ng/dL (0.71-1.85); Thyroid Stimulating Hormone 53.42 uIU/mL (0.32-4.0)
== END 2022-02-06 07:57 | disposition home or self-care (01) ==
LOC: HO.LAB 07:56
PROVIDERS: PCP Family Medicine; Visit Provider Internal Medicine
DX: E89.0 Postprocedural hypothyroidism (principal)
CPT/HCPCS: 36415; 84439; 84443

== ENCOUNTER 2022-02-15 14:37 | Outpatient (REF) | payer OTHER, SELFPAY ==
--- NOTE | ~2022-02-15 | US_ITS ---
EXAMINATION: ULTRASOUND EXTREMITY NONVASCULAR. CLINICAL INFORMATION: Burning soft tissue with lumps. COMPARISON: None TECHNIQUE: Multiple 2-D grayscale and color Doppler ultrasound images of the soft tissues of the anterior calves were obtained. FINDINGS: In the right anterior calf in the superficial hypoechoic focus with horizontal orientation measuring approximately 0.5 x 0.3 x 0.4 cm. At a similar level in the left anterior calf is a superficial hypoechoic focus measuring 1.1 x 0.3 x 1.0 cm. Color Doppler showed no abnormal vascular flow. The surrounding soft tissues are unremarkable. US/US extremity nonvascular IMPRESSION: Small hypoechoic foci anteriorly in the calves bilaterally with similar levels correlate with the palpable lumps. These are nonspecific, but the overall appearance is benign. This could represent scar tissue from prior trauma. Resolving hematoma is or soft tissue fibromas are other possibilities. * If these findings persist or enlarge, short-term repeat targeted soft tissue ultrasound can be performed as clinically indicated to assess for change.
== END 2022-02-15 14:38 | disposition home or self-care (01) ==
LOC: HO.US 14:37
PROVIDERS: PCP Family Medicine; Visit Provider Family Medicine
DX: R22.9 Localized swelling, mass and lump, unspecified (principal)
CPT/HCPCS: 76882

== ENCOUNTER 2022-03-22 12:28 | Outpatient (REF) | payer OTHER, SELFPAY ==
[2022-03-22 14:46] LABS: Free T4 (Free Thyroxine) 0.72 ng/dL (0.71-1.85); Thyroid Stimulating Hormone > 100.00 uIU/mL (0.32-4.0)
[2022-03-24 02:21] LABS: Thyroglobulin 0.9 ng/mL; Thyroglobulin Antibodies 1 IU/mL (< or = 1)
== END 2022-03-22 12:29 | disposition home or self-care (01) ==
LOC: HO.US 12:28
PROVIDERS: Absent Provider Internal Medicine; PCP Family Medicine; Visit Provider Family Medicine
DX: N92.4 Excessive bleeding in the premenopausal period (principal); E89.0 Postprocedural hypothyroidism
CPT/HCPCS: 36415; 84432; 84439; 84443; 86800

== ENCOUNTER → 2022-04-03 09:15 | Outpatient (BNVA) | payer OTHER, SELFPAY | PROVIDERS: PCP Family Medicine; Visit Provider Surgery Vascular Surgery | DX: I83.11 Varicose veins of right lower extremity with inflammation (principal) | CPT/HCPCS: 99202 ==

== ENCOUNTER → 2022-04-26 09:02 | Outpatient (BNVA) | payer OTHER, SELFPAY | PROVIDERS: PCP Family Medicine; Visit Provider Internal Medicine | DX: E89.0 Postprocedural hypothyroidism (principal); E55.9 Vitamin D deficiency, unspecified; Z85.850 Personal history of malignant neoplasm of thyroid; Z79.899 Other long term (current) drug therapy | CPT/HCPCS: Q3014 ==

== ENCOUNTER 2022-04-30 11:20 | Outpatient (REF) | payer OTHER, SELFPAY ==
[2022-04-30 12:03] LABS: Hematocrit 35.2 % (37.0-47.0); Hemoglobin 11.4 g/dl (12.0-16.0)
[2022-04-30 12:32] LABS: Albumin Level 4.1 g/dL (3.5-5.0)
[2022-04-30 12:52] LABS: Ferritin 48 ng/mL (10-250); Free T4 (Free Thyroxine) 0.99 ng/dL (0.71-1.85); Thyroid Stimulating Hormone 16.03 uIU/mL (0.32-4.0); Vitamin D 25-OH Total 46.4 ng/mL (>30)
[2022-04-30 12:53] LABS: Vitamin B12 261 pg/mL (200-900)
[2022-05-01 22:06] LABS: Triiodothyronine T3 Total 78 ng/dL (76-181)
[2022-05-02 04:17] LABS: Thyroglobulin 0.3 ng/mL; Thyroglobulin Antibodies <1 IU/mL (< or = 1)
== END 2022-04-30 11:21 | disposition home or self-care (01) ==
LOC: HO.LAB 11:20
PROVIDERS: PCP Family Medicine; Visit Provider Internal Medicine
DX: E89.0 Postprocedural hypothyroidism (principal); E55.9 Vitamin D deficiency, unspecified; Z85.850 Personal history of malignant neoplasm of thyroid
CPT/HCPCS: 36415; 82040; 82306; 82607; 82728; 83519; 84432; 84439; 84443; 84480; 85014; 85018; 86800

== ENCOUNTER 2022-05-02 10:12 | Outpatient (REF) | payer OTHER, SELFPAY ==
--- NOTE | ~2022-05-02 | US_ITS ---
EXAMINATION: BILATERAL LOWER EXTREMITY VENOUS ULTRASOUND (Reflux Exam) CLINICAL INDICATION: Lower extremity varicose veins. COMPARISON: None. TECHNIQUE: Color flow triplex imaging and compression Doppler was performed to evaluate both the deep and the superficial systems bilaterally. To evaluate the superficial system, the examination was performed in the upright position. Color-flow Doppler ultrasound and compression ultrasound were utilized. In addition, maneuvers were utilized to demonstrate reflux. FINDINGS: SUPERFICIAL ULTRASOUND WITH DOPPLER OF RIGHT LOWER EXTREMITY GREAT SAPHENOUS VEIN: Saphenofemoral junction: 6 mm Max diameter: 6 mm Min diameter: 2 mm Reflux: There is reflux at the ankle up to 1 second. DUPLICATED MEDIAL GREAT SAPHENOUS VEIN: Max Diameter: None Imaged Reflux: NA DUPLICATED LATERAL GREAT SAPHENOUS VEIN: Diameter: 2 mm at the junction. Reflux: None SMALL SAPHENOUS VEIN: Proximal Calf: 3 mm Distal Calf: 3 mm Reflux: No evidence of reflux. VEIN OF GIACOMINI: None Imaged. PERFORATORS: Location: Proximal calf measuring 2 mm. Reflux: NA VARICOSITIES: Location: None Imaged Reflux: NA DEEP VENOUS ULTRASOUND OF THE RIGHT LOWER EXTREMITY: Common Femoral Vein: Compressible, normal respiratory variation and augmented flow. Femoral vein: Compressible, normal color flow and augmentation. The femoral vein is duplicated. Popliteal Vein: Compressible, normal augmentation. Deep Reflux: There is no evidence of reflux in the deep system in either the common femoral vein or the popliteal vein. Lew's Cyst: There is no evidence of a Lew's cyst. SUPERFICIAL ULTRASOUND WITH DOPPLER OF LEFT LOWER EXTREMITY GREAT SAPHENOUS VEIN: Saphenofemoral junction: 6 mm Max diameter: 6 mm Min diameter: 2 mm Reflux: Segmental reflux at the midcalf and ankle up to 1.8 seconds. DUPLICATED MEDIAL GREAT SAPHENOUS VEIN: Max Diameter: None Imaged Reflux: NA DUPLICATED LATERAL GREAT SAPHENOUS VEIN: Diameter: 2 mm at the junction and 2 mm at the mid thigh. Reflux: There is greater than 3 seconds of reflux at the mid thigh. SMALL SAPHENOUS VEIN: Proximal Calf: 5 mm Distal Calf: 2 mm Reflux: No evidence of reflux. VEIN OF GIACOMINI: None Imaged. PERFORATORS: Location: None Imaged Reflux: NA VARICOSITIES: Location: Distal thigh measuring 2 mm. Reflux: There is greater than 3 seconds of reflux within this varix. DEEP VENOUS ULTRASOUND OF THE LEFT LOWER EXTREMITY: Common Femoral Vein: Compressible, normal respiratory variation and augmented flow. Femoral vein: Compressible, normal color flow and augmentation. Popliteal Vein: Compressible, normal augmentation. Deep Reflux: There is no evidence of reflux in the deep system in either the common femoral vein or the popliteal vein. Lew's Cyst: There is no evidence of a Lew's cyst. US/US venous duplex LE BI IMPRESSION: 1. Segmental right great saphenous venous insufficiency at the ankle. 2. Segmental left great saphenous venous insufficiency at the midcalf and ankle. 3. Reflux involving the lateral duplicated great saphenous vein at the mid thigh. 4. No evidence of DVT or deep venous insufficiency.
== END 2022-05-02 10:13 | disposition home or self-care (01) ==
LOC: HO.US 10:12
PROVIDERS: Visit Provider Surgery Vascular Surgery
DX: I83.11 Varicose veins of right lower extremity with inflammation (principal)
CPT/HCPCS: 93970

== ENCOUNTER 2022-05-21 15:06 | Outpatient (REF) | payer OTHER, SELFPAY ==
[2022-05-21 16:54] LABS: Hematocrit 35.4 % (37.0-47.0); Hemoglobin 11.8 g/dl (12.0-16.0); Mean Corpuscular HGB Conc 33.3 g/dl (31.0-35.0); Mean Corpuscular Volume 83.9 fL (80.0-98.0); Mean Platelet Volume 10.3 fL (9.4-12.3); Platelet Count 281 X10*3/uL (160-400); Red Blood Count 4.22 X10*6/uL (4.20-5.50); Red Cell Distribution Width 13.8 % (11.0-16.0); White Blood Count 9.6 X10*3/uL (4.8-10.8)
[2022-05-21 17:40] LABS: HCG Quantitative < 2 mIU/mL; TSH reflex Free T4 4.36 uIU/mL (0.32-4.0)
[2022-05-21 17:43] LABS: Free T4 (Free Thyroxine) 1.34 ng/dL (0.71-1.85); Thyroid Stimulating Hormone 4.18 uIU/mL (0.32-4.0)
[2022-05-22 05:13] LABS: CT PCR NOT DETECTED (Not Detect.); NG PCR NOT DETECTED (Not Detect.)
[2022-05-23 06:21] LABS: Follicle Stimulating Hormone 13.3 mIU/mL; Lutenizing Hormone 8.3 mIU/mL; Triiodothyronine T3 Total 106 ng/dL (76-181)
[2022-05-24 18:21] LABS: HPV mRNA E6/E7 rflx Not Detected (Not Detected)
== END 2022-05-21 15:07 | disposition home or self-care (01) ==
LOC: HO.LAB 15:06
PROVIDERS: Internal Medicine; PCP Family Medicine; Visit Provider Obstetrics & Gynecology
DX: Z01.419 Encounter for gynecological examination (general) (routine) without abnormal findings (principal); Z11.51 Encounter for screening for human papillomavirus (HPV); N93.9 Abnormal uterine and vaginal bleeding, unspecified; E89.0 Postprocedural hypothyroidism
CPT/HCPCS: 36415; 83001; 83002; 84439; 84443; 84480; 84702; 85027; 87491; 87591; 87624; 88142; 99202

== ENCOUNTER → 2022-06-07 15:03 | Outpatient (BNVA) | payer OTHER, SELFPAY | PROVIDERS: PCP Family Medicine; Visit Provider Surgery Vascular Surgery | DX: I83.11 Varicose veins of right lower extremity with inflammation (principal) | CPT/HCPCS: 99212 ==

== ENCOUNTER 2022-06-29 14:11 | Outpatient (REF) | payer OTHER, SELFPAY ==
--- NOTE | ~2022-06-29 | US_ITS ---
EXAMINATION: US SOFT TISSUE NECK CLINICAL INFORMATION: Personal history of malignant neoplasm of thyroid COMPARISON: CT soft tissue neck 10/28/2020. Ultrasound soft tissue head/neck thyroid dated 06/06/2020. TECHNIQUE: Ultrasound of the neck soft tissues is performed with high- frequency espinoza-scale imaging and color Doppler. FINDINGS: THYROID BED: Prior thyroidectomy. No residual thyroid tissue demonstrated in the thyroid bed. No cystic or solid nodules demonstrated in the thyroid bed. RIGHT NECK SOFT TISSUES: Scattered architecturally normal nodes are present. The nodes show normal fatty hilus, normal cortical thickness, and no cystic change or calcification. No abnormal color flow. The largest nodes are as follows: Level 1B: 0.8 x 0.7 x 1.2 cm. Normal hipolito architecture. Level 1B: 0.8 x 0 0.5-0.8 cm. Normal hipolito architecture. Level 4: 1 x 0.5 x 0.7 cm. Slightly diminutive hilum Level 4: 1 x 0.5 x 0.8 cm. Normal hipolito architecture. Level 5A: 1 x 0.4 x 0.7 cm. Normal hipolito architecture. LEFT NECK SOFT TISSUES: Scattered architecturally normal nodes are present. The nodes show normal fatty hilus, normal cortical thickness, and no cystic change or calcification. No abnormal color flow. The largest nodes are as follows: Level 1B: 0.6 x 0.9 x 0.5 cm. Normal hipolito architecture. Level 1B: 0.6 x 0.5 x 0.5 cm. Minimal hilum Level 1B: 0.5 x 0.6 x 0.7 cm. Normal hipolito architecture. Level 3: 0.8 x 1.6 x 0.6 cm. Normal hipolito architecture. Level 3: 0.8 x 1.1 x 0.4 cm. Normal hipolito architecture. Level 3: 1.5 x 0.5 x 1.1 cm. Normal hipolito architecture. Level 5A: 0.4 x 0.3 x 0.5 cm. Small node, no discernible hilum US/US soft tiss head and/or neck IMPRESSION: 1. Multiple bilateral cervical lymph nodes, as described. Several of the lymph nodes have minimal discernible chrystal without other architectural anomaly. 2. If clinically indicated further evaluation of the neck soft tissues and nodes may be performed with CT soft tissue neck with intravenous contrast.
[2022-06-29 17:37] LABS: Free T4 (Free Thyroxine) 1.06 ng/dL (0.71-1.85); Thyroid Stimulating Hormone 1.48 uIU/mL (0.32-4.0)
== END 2022-06-29 14:12 | disposition home or self-care (01) ==
LOC: HO.US 14:11
PROVIDERS: PCP Family Medicine; Visit Provider Internal Medicine
DX: E89.0 Postprocedural hypothyroidism (principal); Z85.850 Personal history of malignant neoplasm of thyroid
CPT/HCPCS: 36415; 76536; 83520; 84439; 84443

== ENCOUNTER → 2022-07-02 14:26 | Outpatient (BNVA) | payer OTHER, SELFPAY | PROVIDERS: PCP Family Medicine; Visit Provider Internal Medicine | DX: E89.0 Postprocedural hypothyroidism (principal); E55.9 Vitamin D deficiency, unspecified; Z79.899 Other long term (current) drug therapy; Z85.850 Personal history of malignant neoplasm of thyroid | CPT/HCPCS: 99212 ==

== ENCOUNTER 2022-07-05 14:40 | Outpatient (REF) | payer OTHER, SELFPAY ==
--- NOTE | ~2022-07-05 | US_ITS ---
EXAMINATION: US PELVIS CLINICAL INFORMATION: N93.9 - Abnormal uterine and vaginal bleeding, unspecified . Age 51. Postmenopausal. COMPARISON: Pelvic ultrasound 07/27/2021. CT abdomen and pelvis 01/25/2022. TECHNIQUE: Ultrasound of the pelvis is performed using both transabdominal and transvaginal transducers along with Doppler. Transvaginal imaging is performed due to inadequate visualization transabdominally. FINDINGS: Uterus: The uterus is anteverted and measures 8.1 x 4.5 x 4.8 cm. The double wall endometrial thickness is 3 mm. Uterus contour is smooth. There is small mid anterior intramural uterine body fibroid Measuring 1.4 cm. Prior measurement 1.0 cm. No other fibroids are visible. Adnexa: Both ovaries are visualized with transabdominal transducer. There is normal color flow to the adnexa. There is no ovarian torsion. There is no pelvic ascites or fluid collection. Right ovary measures 2.4 x 1.2 x 1.9 cm. No adnexal mass. Left ovary measures 3.2 x 2.0 x 2.3 cm. No adnexal mass. US/US pelvic and transvaginal IMPRESSION: Uterus: -Only 1 small intramural fibroids demonstrated, 1.4 cm. Prior measurement 1.0 cm. -Normal double wall endometrial thickness, 3 mm. Adnexa: -No adnexal mass or pelvic ascites.
== END 2022-07-05 14:41 | disposition home or self-care (01) ==
LOC: HO.US 14:40
PROVIDERS: Visit Provider Obstetrics & Gynecology
DX: N93.9 Abnormal uterine and vaginal bleeding, unspecified (principal); Z78.0 Asymptomatic menopausal state
CPT/HCPCS: 76830; 76856

== ENCOUNTER 2022-07-10 10:11 | Emergency (ER) | payer OTHER, SELFPAY ==
--- NOTE | ~2022-07-10 | XR_ITS ---
EXAMINATION: XR ANKLE, LEFT CLINICAL INFORMATION: Left ankle and foot pain. COMPARISON: None TECHNIQUE: AP, lateral, and mortise views of the left ankle. An indicator arrow points to the lateral malleolus. FINDINGS: The bones and soft tissues are normal. No fracture. Alignment is anatomic. Joint spaces are maintained. No joint effusion. XR/XR ankle LT 2V IMPRESSION: Unremarkable left ankle.
[2022-07-10 10:14] VITALS: BP 107/57; PULSE 84; RESP 18; TEMP 36.1; O2SAT 99; BMI 35.4
--- NOTE | 2022-07-10 11:02 | ED_ITS ---
HPI - Extremity Injury (Lower) General Chief Complaint: Extremity Injury, Lower Stated Complaint: L foot Pain Time Seen by Provider: 07/10/22 10:36 Source: patient Mode of arrival: ambulatory Limitations: no limitations History of Present Illness HPI Narrative: 51 yo female with history of obesity, DM2, hypothyroidism, sacroilitis who presents to the ER for evaluation of left foot and ankle pain that started yest erday morning. She reports when she went to step out of bed she felt a pop in her ankle. She has had pain and slight swelling since then. She has been able to walk on it but with some discomfort. She took Tylenol with minimal relief. She waited to see if the pain would get better but when she woke up this morning and went to walk on her foot again it was more painful than yesterday. He is di abetic and she is worried about her feet. She has plantar warts on the left foot and sees a patients transporter for this. She denies any wounds or redness of the foot. MD complaint: ankle injury and foot injury Injury: Left: ankle and foot Type of Injury: unknown Place: home Severity: moderate Severity scale (1-10): 5 Relieving factors: immobilization and rest Exacerbating factors: weight bearing, movement and palpation Context: walking Associated symptoms: snap/pop sensation and able to partially bear weight Other symptoms: none Related Data Home Medications Medication Instructions Recorded Confirmed aripiprazole 15 mg tablet (Abilify) 20 mg PO DAILY 09/05/20 07/02/22 clonazepam 1 mg tablet (Klonopin) 1 mg PO TID PRN Anxiety 09/05/20 07/02/22 ferrous fumarate 324 mg (106 mg 324 mg PO BID 09/05/20 07/02/22 iron) tablet (Ferrocite) lisinopril 2.5 mg tablet 2.5 mg PO DAILY 09/05/20 07/02/22 metformin 500 mg tablet,extended 1,000 mg PO BID 09/05/20 07/02/22 release 24 hr montelukast 10 mg tablet 10 mg PO BEDTIME 09/05/20 07/02/22 (Singulair) vit no.95-ferrous 1 tab PO DAILY 09/05/20 07/02/22 fumarate 28 mg-folic acid 800 mcg tablet tramadol 50 mg tablet (Ultram) 50 mg PO Q8H PRN severe pain 09/05/20 07/02/22 trazodone 100 mg tablet 100 mg PO BEDTIME 09/05/20 07/02/22 acetaminophen 650 mg 650 mg PO Q8H PRN Pain 04/24/21 07/02/22 tablet,extended release albuterol sulfate 90 mcg/actuation 2 puff inhalation ONCE PRN Wheezing 04/24/21 07/02/22 aerosol inhaler alcohol swabs 0 pad topical DAILY 04/24/21 07/02/22 atorvastatin 40 mg tablet 40 mg PO DAILY 04/24/21 07/02/22 benztropine 1 mg tablet 1 mg PO DAILY 04/24/21 07/02/22 cetirizine 10 mg tablet (Zyrtec) 10 mg PO BEDTIME 04/24/21 07/02/22 fluticasone propionate 110 2 puff inhalation BID 04/24/21 07/02/22 mcg/actuation HFA aerosol inhaler (Flovent HFA) fluticasone propionate 50 2 spray intranasal DAILY PRN 04/24/21 07/02/22 mcg/actuation nasal Allergy Symptoms spray,suspension (Flonase Allergy Relief) glipizide 5 mg tablet 5 mg PO BID 04/24/21 07/02/22 haloperidol 5 mg tablet See Rx Instructions PO BID 04/24/21 07/02/22 methocarbamol 750 mg tablet 750 mg PO TID 04/24/21 07/02/22 bupropion HCl 300 mg 24 hr tablet, 300 mg PO DAILY PRN 06/07/22 07/02/22 extended release pantoprazole 20 mg tablet,delayed 20 mg PO BID 07/02/22 07/02/22 release Previous Rx's Medication Instructions Recorded ferrous sulfate 325 mg (65 mg 325 mg PO DAILY 30 days #30 tabs 05/22/22 iron) tablet,delayed release Tirosint-Michelle 200 mcg/mL oral 400 mcg (2 mL) PO DAILY 30 days 05/25/22 solution (levothyroxine) #60 mL Allergies Allergy/AdvReac Type Severity Reaction Status Date / Time acetaminophen [Percocet] Allergy Unknown Stomach Verified 07/02/22 14:45 Cramps. oxycodone [Percocet] Allergy Unknown stomach Verified 07/02/22 14:45 pain SEASONAL ALLERGIES Allergy Unknown UNKNOWN Uncoded 07/02/22 14:45 From PERCOCET AdvReac Unknown CRAMPS Uncoded 07/02/22 14:45 Review of Systems Review of Systems: Constitutional: No Fever, No Chills Cardiovascular: No Chest Pain, No SOB Gastrointestinal: No Nausea, No Vomiting Musculoskeletal: + joint pain, No Myalgias Skin: No Skin Lesions, No rash Neuro: No Weakness, No Numbness Psych: + Anxiety/Panic Heme/Lymph: No Bruising PMFSH Past Medical History Medical History JESICA positive Bipolar 1 disorder COPD (chronic obstructive pulmonary disease) GERD (gastroesophageal reflux disease) Goiter History of thyroid cancer HLD (hyperlipidemia) Hypercalcemia Hypothyroidism Morbid obesity Multinodular goiter Postoperative hypothyroidism Sacroiliitis T2DM (type 2 diabetes mellitus) Type 2 diabetes mellitus Vitamin D deficiency Surgical History Hx of cholecystectomy Hx of total thyroidectomy Hx of tubal ligation Family History Family History Father No problems noted. 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 Oriented X3. No acute distress. HEENT: normal inspection CVS: Normal heart rate and rhythm. Pulses normal. Respiratory: No respiratory distress. Skin: Skin warm and dry. Normal skin color. Normal skin turgor. No rashes. Extremities: Left lateral ankle with mild generalized swelling, normal range of motion of the left foot and ankle, mild tenderness over the lateral malleolus. 2+ DP and PT pulses. Plantar wart present on the plantar aspect of the foot. No open wounds or erythema. Neuro: Oriented X 3. No motor deficit. No sensory deficit. Ambulates with a slight limp. Course Course Course Narrative: 51-year-old female presents to the ER for left ankle and foot pain after she may have rolled it when getting out of bed yesterday morning. X-rays pending. Reevaluation(s) Reevaluation #1: X-rays negative for acute fracture or dislocation. Foot was wrapped in Denis wrap for compression and support. Crutches provided. Will treat for ankle sprain. Patient stable for discharge home. Procedures Orthopedic Splinting/Casting Injury #1: Side: left Lower Extremity Injury Location: ankle and foot Lower Extremity Immobilizer: Denis wrap Other Orthopedic Equipment: crutches Discharge Plan Discharge Clinical Impression: Ankle sprain and strain Patient Disposition: Home, Self-Care Instructions: Ankle Sprain (ED) Additional Instructions: Your x-ray today was normal. Rest your foot and ankle; elevate your foot when possible. Recommend DENIS wrap for support and compression. Use ice several times per day for the next 48 hours. You may bear weight as tolerated. If pain is too severe, use crutches until better. Take Motrin and/or Tylenol as needed for pain. Follow up with your doctor as needed. If no improvement in 1-2 weeks, recommend following with orthopedics for further evaluation. Name and number below. Prescriptions: No Action ferrous sulfate 325 mg (65 mg iron) tablet,delayed release (DR/EC) 325 mg PO DAILY 30 Days Qty: 30 1RF Tirosint-Michelle 200 mcg/mL solution 400 mcg PO DAILY 30 Days Qty: 60 11RF aripiprazole [Abilify] 15 mg tablet 20 mg PO DAILY ferrous fumarate [Ferrocite] 324 mg (106 mg iron) tablet 324 mg PO BID lisinopril 2.5 mg tablet 2.5 mg PO DAILY metformin 500 mg tablet extended release 24 hr 1,000 mg PO BID montelukast [Singulair] 10 mg tablet 10 mg PO BEDTIME PNV cmb#95-ferrous fumarate-FA 28 mg iron- 800 mcg tablet 1 tab PO DAILY tramadol [Ultram] 50 mg tablet 50 mg PO Q8H PRN (Reason: severe pain) clonazepam [Klonopin] 1 mg tablet 1 mg PO TID PRN (Reason: Anxiety) trazodone 100 mg tablet 100 mg PO BEDTIME atorvastatin 40 mg tablet 40 mg PO DAILY acetaminophen 650 mg tablet extended release 650 mg PO Q8H PRN (Reason: Pain) albuterol sulfate 90 mcg/actuation HFA aerosol inhaler 2 puff inhalation ONCE PRN (Reason: Wheezing) haloperidol 5 mg tablet See Rx Instructions PO BID Rx Instructions: 1/2 tab am, 1/2 tab pm PO 2 times a day; benztropine 1 mg tablet 1 mg PO DAILY methocarbamol 750 mg tablet 750 mg PO TID Flovent HFA 110 mcg/actuation HFA aerosol inhaler 2 puff inhalation BID fluticasone propionate [Flonase Allergy Relief] 50 mcg/actuation spray,suspension 2 spray intranasal DAILY PRN (Reason: Allergy Symptoms) cetirizine [Zyrtec] 10 mg tablet 10 mg PO BEDTIME glipizide 5 mg tablet 5 mg PO BID alcohol swabs Pads, Medicated 0 pad topical DAILY pantoprazole 20 mg tablet,delayed release (DR/EC) 20 mg PO BID bupropion HCl 300 mg tablet extended release 24 hr 300 mg PO DAILY PRN Referrals: Bob Menendez MD [Physician] - (ankle/foot pain, xr negative)
[2022-07-10] MEDS: Acetaminophen 325 MG TABLET 975 MG PO (11:53)
--- NOTE | 2022-07-10 11:54 | PC.NURSE ---
Patient denies allergy to acetaminophen and states she takes tylenol at home
== END 2022-07-10 12:28 | disposition home or self-care (01) ==
PROVIDERS: Emergency Provider Emergency Medicine; PCP Family Medicine
DX: S93.402A Sprain of unspecified ligament of left ankle, initial encounter (principal); S96.912A Strain of unspecified muscle and tendon at ankle and foot level, left foot, initial encounter; X50.1XXA Overexertion from prolonged static or awkward postures, initial encounter; E11.9 Type 2 diabetes mellitus without complications; F17.210 Nicotine dependence, cigarettes, uncomplicated; E66.9 Obesity, unspecified; Z68.35 Body mass index [BMI] 35.0-35.9, adult; Y93.89 Activity, other specified; Y92.013 Bedroom of single-family (private) house as the place of occurrence of the external cause; Y99.9 Unspecified external cause status
CPT/HCPCS: 73600; 99283

== ENCOUNTER → 2022-07-27 10:51 | Outpatient (BNVA) | payer OTHER, SELFPAY | PROVIDERS: Visit Provider Advanced Practice Midwife | DX: Z71.2 Person consulting for explanation of examination or test findings (principal); R30.0 Dysuria; R23.2 Flushing | CPT/HCPCS: Q3014 ==

== ENCOUNTER 2022-09-13 09:38 | Outpatient (REF) | payer OTHER, SELFPAY ==
[2022-09-13 10:59] LABS: Appearance Urine Clear; Color Urine Yellow; Glucose Urine UA Negative (Negative); Leukocyte Esterase Urine Moderate (2+) (Negative); Nitrite Urine Negative (Negative); PH 5.5 (5.0-9.0); UMIC TRIGGER UACC YES; Urine Blood Negative (Negative); Urine Ketones Negative (Negative); Urine Protein Negative (Neg-Trace)
[2022-09-13 11:05] LABS: Bacteria Urine Trace (None Seen); Hyaline Casts Urine 0-2 /LPF (0-2); RBC Urine 0-2 /HPF (0-2); UACC Culture Trigger YES
[2022-09-13 11:27] LABS: Free T4 (Free Thyroxine) 1.37 ng/dL (0.71-1.85); Thyroid Stimulating Hormone 2.95 uIU/mL (0.32-4.0)
== END 2022-09-13 09:39 | disposition home or self-care (01) ==
LOC: HO.LAB 09:38
PROVIDERS: Absent Provider Advanced Practice Midwife; PCP Family Medicine; Visit Provider Internal Medicine
DX: E89.0 Postprocedural hypothyroidism (principal); R30.0 Dysuria
CPT/HCPCS: 36415; 81001; 81003; 84439; 84443; 87086

== ENCOUNTER 2022-09-17 10:31 | Emergency (ER) | payer OTHER, SELFPAY ==
--- NOTE | ~2022-09-17 | XR_ITS ---
EXAMINATION: XR KNEE, RIGHT CLINICAL INFORMATION: Right knee 4 views COMPARISON: None TECHNIQUE: Four views of the right knee. FINDINGS: No joint effusion, fracture, dislocation or destructive process. Joint spaces do appear preserved. XR/XR knee RT 4V IMPRESSION: Negative
[2022-09-17 10:44] VITALS: BP 120/63; PULSE 92; RESP 18; TEMP 36.7; O2SAT 98; BMI 35.2
--- NOTE | 2022-09-17 11:13 | ED.GENADULT ---
HPI - General Adult General Chief complaint: Extremity Problem Stated complaint: PAIN IN BACK OF R KNEE VEIN SWOLLEN Time Seen by Provider: 09/17/22 11:12 Source: patient Mode of arrival: ambulatory Limitations: no limitations History of Present Illness HPI narrative: Patient is a 52 year old assigned female at with a history of DM presenting to the emergency department today with pain behind her right knee. Patient states that over the last 2 weeks she has been having pain in her right knee that has been getting progressively worse. Patient denies any dizziness, lightheadedness, abdominal pain, nausea, vomiting, fever, chills, blurry vision, double vision, loss of vision, chest pain, difficulty breathing, shortness of breath, back pain, night sweats, pain with urination, increased urinary frequency, increased urinary urgency, blood in her urine or stool, syncope or a near syncopal episode, recent trauma or falls, bowel incontinence, bladder incontinence, bowel retention, bladder retention, or any other complaints at this time. Onset (ago): week(s) (2) Location: right and lower extremity Radiation: non-radiation Severity: mild Severity scale (1-10): 3 Quality: dull Pain Consistency: constant Relieving factors: none Exacerbating factors: none Associated symptoms: denies other symptoms Treatments prior to arrival: none Related Data Home Medications Medication Instructions Recorded Confirmed aripiprazole 15 mg tablet (Abilify) 20 mg PO DAILY 09/05/20 07/02/22 clonazepam 1 mg tablet (Klonopin) 1 mg PO TID PRN Anxiety 09/05/20 07/02/22 ferrous fumarate 324 mg (106 mg 324 mg PO BID 09/05/20 07/02/22 iron) tablet (Ferrocite) lisinopril 2.5 mg tablet 2.5 mg PO DAILY 09/05/20 07/02/22 metformin 500 mg tablet,extended 1,000 mg PO BID 09/05/20 07/02/22 release 24 hr montelukast 10 mg tablet 10 mg PO BEDTIME 09/05/20 07/02/22 (Singulair) vit no.95-ferrous 1 tab PO DAILY 09/05/20 07/02/22 fumarate 28 mg-folic acid 800 mcg tablet tramadol 50 mg tablet (Ultram) 50 mg PO Q8H PRN severe pain 09/05/20 07/02/22 trazodone 100 mg tablet 100 mg PO BEDTIME 09/05/20 07/02/22 acetaminophen 650 mg 650 mg PO Q8H PRN Pain 04/24/21 07/02/22 tablet,extended release albuterol sulfate 90 mcg/actuation 2 puff inhalation ONCE PRN Wheezing 04/24/21 07/02/22 aerosol inhaler alcohol swabs 0 pad topical DAILY 04/24/21 07/02/22 atorvastatin 40 mg tablet 40 mg PO DAILY 04/24/21 07/02/22 benztropine 1 mg tablet 1 mg PO DAILY 04/24/21 07/02/22 cetirizine 10 mg tablet (Zyrtec) 10 mg PO BEDTIME 04/24/21 07/02/22 fluticasone propionate 110 2 puff inhalation BID 04/24/21 07/02/22 mcg/actuation HFA aerosol inhaler (Flovent HFA) fluticasone propionate 50 2 spray intranasal DAILY PRN 04/24/21 07/02/22 mcg/actuation nasal Allergy Symptoms spray,suspension (Flonase Allergy Relief) glipizide 5 mg tablet 5 mg PO BID 04/24/21 07/02/22 haloperidol 5 mg tablet See Rx Instructions PO BID 04/24/21 07/02/22 methocarbamol 750 mg tablet 750 mg PO TID 04/24/21 07/02/22 bupropion HCl 300 mg 24 hr tablet, 300 mg PO DAILY PRN 06/07/22 07/02/22 extended release pantoprazole 20 mg tablet,delayed 20 mg PO BID 07/02/22 07/02/22 release Previous Rx's Medication Instructions Recorded ferrous sulfate 325 mg (65 mg 325 mg PO DAILY 30 days #30 tabs 05/22/22 iron) tablet,delayed release Tirosint-Michelle 200 mcg/mL oral 400 mcg (2 mL) PO DAILY 30 days 05/25/22 solution (levothyroxine) #60 mL Allergies Allergy/AdvReac Type Severity Reaction Status Date / Time acetaminophen [Percocet] Allergy Unknown Stomach Verified 07/27/22 10:52 Cramps. oxycodone [Percocet] Allergy Unknown stomach Verified 07/27/22 10:52 pain SEASONAL ALLERGIES Allergy Unknown UNKNOWN Uncoded 07/27/22 10:52 From PERCOCET AdvReac Unknown CRAMPS Uncoded 07/27/22 10:52 Review of Systems Constitutional: Constitutional: Reports no additional constitutional complaints, Denies chills, Denies fever(s) and Denies night sweats Eyes: Eyes: Reports no additional eye complaints, Denies blurry vision, Denies change in vision, Denies diplopia, Denies eye discharge, Denies loss of vision and Denies eye pain ENT: Denies dizziness Cardiovascular: Cardiovascular: Reports no additional cardiovascular complaints, Denies chest pain, Denies lightheadedness, Denies Loss of Consciousness and Denies dyspnea Respiratory: Respiratory: Reports no additional respiratory complaints and Denies dyspnea Gastrointestinal: Gastrointestinal: Reports no additional gastrointestinal complaints, Denies abdominal pain, Denies melena, Denies hematochezia, Denies change in bowel habits and Denies change in stool character Genitourinary: Genitourinary: Denies hematuria, Denies urinary frequency, Denies dysuria, Denies urinary incontinence, Denies urinary hesitancy and Denies urinary urgency Musculoskeletal: Musculoskeletal: Reports no additional musculoskeletal complaints, Denies numbness and Denies tingling Comments: right knee pain Neurologic: Denies dizziness, Denies loss of vision, Denies numbness and Denies tingling Psychiatric: Psychiatric: Reports no additional psychiatric complaints Endocrine: Endocrine: Reports no additional endocrine complaints Hematologic/Lymphatic: Hematologic/Lymphatic: Reports no additional hematologic/lymphatic complaints Allergic/Immunologic: Allergic/Immunologic: Reports no additional allergic/immunologic complaints FORMERLY [facility], 1928–1983 Past Medical History Attestation statement: The following information was validated with the patient. Source: old records reviewed Medical History JESICA positive Bipolar 1 disorder Bipolar disorder Cervical cancer COPD (chronic obstructive pulmonary disease) COPD (chronic obstructive pulmonary disease) GERD (gastroesophageal reflux disease) Goiter High cholesterol History of thyroid cancer HLD (hyperlipidemia) Hypercalcemia Hypothyroidism Morbid obesity Multinodular goiter Pancreatitis Postoperative hypothyroidism Sacroiliitis Schizoaffective disorder T2DM (type 2 diabetes mellitus) Type 2 diabetes mellitus Vitamin D deficiency Surgical History Hx of cholecystectomy Hx of total thyroidectomy Hx of tubal ligation Family History Family History Father No problems noted. 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: Yes (Stress) Physical Exam ED Vital Signs: Vital Signs - 24 hr 09/17/22 10:44 Temperature 98.0 F Pulse Rate 92 Respiratory Rate 18 Blood Pressure 120/63 Pulse Oximetry 98 Oxygen Delivery Method Room Air BMI result Body Mass Index 35.2 Const General: cooperative, no acute distress, alert and awake Nutritional Appearance: well nourished Orientation/consciousness: patient oriented x3 Limitations: no limitations HENMT Head: Yes normal to inspection and Yes atraumatic Ears: hearing grossly normal bilaterally and external ears normal General nose exam: Normal external nose present, no nasal discharge noted and no epistaxis Face and sinus: Yes normal facial exam, No abrasion and No laceration Mouth: Normal oral and palatal mucosa present, no drooling and no muffled voice Eyes General: appearance normal, both eyes and all related structures Periorbital: periorbital findings normal Eyelids: Yes eyelids normal Conjunctivae: conjunctivae normal Pupils: Equal, round and reactive pupils present EOM: EOMs intact bilaterally Neck Neck: Yes normal visual inspection, Yes full ROM and Yes no lymphadenopathy Chest Chest palpation & inspection: normal inspection of the chest Resp Effort & Inspection: normal respiratory effort and able to speak in complete sentences Auscultation: clear to auscultation bilaterally Cardio Rate: regular rate Rhythm: regular rhythm GI Inspection: Yes normal to inspection Neuro General: patient oriented x3 and moves all extremities Cranial nerves: Yes Equal, round and reactive pupils present Cognition (Neuro): normal cognition Motor exam (neuro): 5/5 motor strength present throughout Sensory Exam: Normal double simultaneous stimulation for sensation Coordination: [id number] test normal Extrem Other: small amount of swelling to the posterior right knee General: Yes full ROM and Yes capillary refill normal Psych Appearance: grossly normal Mental Status: mental status grossly normal Affect: normal affect Attitude: cooperative Thought process: Normal thought process present Thought content: Normal thought content present Insight: Good insight present (Psych) Medical Decision Making MDM Narrative Medical decision making narrative: Patient is a 52 year old assigned female at with a history of DM presenting to the emergency department today with right knee pain. Patient's physical exam showed a small area of swelling to the posterior right knee consistent with a bakers cyst. There was no erythema, no warmth, no concern for abscess. Patient's right knee x-ray showed no acute process. I explained my physical exam findings as well as all test results to the patient. I answered all questions asked by the patient. I stressed the importance of the patient taking her medication as prescribed. I stressed the importance of the patient following up with her primary care provider and an orthopedic provider. I stressed the importance of the patient returning to the emergency department immediately if her symptoms were to worsen or if she were to develop any dizziness, shortness of breath, difficulty breathing, chest pain, blurry vision, loss of vision, nausea, vomiting, abdominal pain, fever, chills, back pain, or any other complaints. Patient verbalized agreement and understanding with this treatment plan and discharge. Medical Records Medical records reviewed: Yes I reviewed the patient's medical records. Imaging Data Right knee x-ray: Attestation: I personally reviewed and interpreted this imaging study as follows: My impression: No acute process. Radiologist's impression: EXAMINATION: XR KNEE, RIGHT? CLINICAL INFORMATION: Right knee 4 views COMPARISON: None? TECHNIQUE: Four views of the right knee. FINDINGS: No joint effusion, fracture, dislocation or destructive process. Joint spaces do appear preserved.? XR/XR knee RT 4V IMPRESSION: Negative Dictated By: Gato Flores MD Signed By: Electronically signed by Gato Flores MD 09/17/22 1201 Discharge Plan Discharge Clinical Impression: Lew's cyst Patient Disposition: Home, Self-Care Instructions: Bakers Cyst (ED) Additional Instructions: Follow up with your primary care provider and the orthopedic provider. Return to the emergency department immediately if your symptoms worsen or if you develop any dizziness, shortness of breath, difficulty breathing, chest pain, blurry vision, loss of vision, nausea, vomiting, abdominal pain, fever, chills, back pain, or any other complaints. Prescriptions: No Action ferrous sulfate 325 mg (65 mg iron) tablet,delayed release (DR/EC) 325 mg PO DAILY 30 Days Qty: 30 1RF Tirosint-Michelle 200 mcg/mL solution 400 mcg PO DAILY 30 Days Qty: 60 11RF aripiprazole [Abilify] 15 mg tablet 20 mg PO DAILY ferrous fumarate [Ferrocite] 324 mg (106 mg iron) tablet 324 mg PO BID lisinopril 2.5 mg tablet 2.5 mg PO DAILY metformin 500 mg tablet extended release 24 hr 1,000 mg PO BID montelukast [Singulair] 10 mg tablet 10 mg PO BEDTIME PNV cmb#95-ferrous fumarate-FA 28 mg iron- 800 mcg tablet 1 tab PO DAILY tramadol [Ultram] 50 mg tablet 50 mg PO Q8H PRN (Reason: severe pain) clonazepam [Klonopin] 1 mg tablet 1 mg PO TID PRN (Reason: Anxiety) trazodone 100 mg tablet 100 mg PO BEDTIME atorvastatin 40 mg tablet 40 mg PO DAILY acetaminophen 650 mg tablet extended release 650 mg PO Q8H PRN (Reason: Pain) albuterol sulfate 90 mcg/actuation HFA aerosol inhaler 2 puff inhalation ONCE PRN (Reason: Wheezing) haloperidol 5 mg tablet See Rx Instructions PO BID Rx Instructions: 1/2 tab am, 1/2 tab pm PO 2 times a day; benztropine 1 mg tablet 1 mg PO DAILY methocarbamol 750 mg tablet 750 mg PO TID Flovent HFA 110 mcg/actuation HFA aerosol inhaler 2 puff inhalation BID fluticasone propionate [Flonase Allergy Relief] 50 mcg/actuation spray,suspension 2 spray intranasal DAILY PRN (Reason: Allergy Symptoms) cetirizine [Zyrtec] 10 mg tablet 10 mg PO BEDTIME glipizide 5 mg tablet 5 mg PO BID alcohol swabs Pads, Medicated 0 pad topical DAILY pantoprazole 20 mg tablet,delayed release (DR/EC) 20 mg PO BID bupropion HCl 300 mg tablet extended release 24 hr 300 mg PO DAILY PRN Referrals: [facility] [place] [facility] [Provider Group] (Call to establish and follow up with an orthopedic provider. ) Linda Murphy DO [Primary Care Provider] - Stand Alone Forms: Work/School Release Interventions: ED Discharge Assessment Last Done: 09/17/22 12:46 Discharge Date/Time: 09/17/22 12:46 Print Language: Armenian
== END 2022-09-17 12:46 | disposition home or self-care (01) ==
PROVIDERS: Emergency Provider Emergency Medicine; PCP Family Medicine
DX: M71.21 Synovial cyst of popliteal space [Baker], right knee (principal); M25.561 Pain in right knee; E11.9 Type 2 diabetes mellitus without complications; E78.5 Hyperlipidemia, unspecified; Z87.891 Personal history of nicotine dependence; E66.9 Obesity, unspecified; Z68.35 Body mass index [BMI] 35.0-35.9, adult; Z79.84 Long term (current) use of oral hypoglycemic drugs; Z79.899 Other long term (current) drug therapy
CPT/HCPCS: 73564; 99283

== ENCOUNTER → 2022-09-19 08:35 | Outpatient (BNVA) | payer OTHER, SELFPAY | PROVIDERS: PCP Family Medicine; Visit Provider Internal Medicine | DX: R00.2 Palpitations (principal); I45.10 Unspecified right bundle-branch block; E11.9 Type 2 diabetes mellitus without complications; G47.33 Obstructive sleep apnea (adult) (pediatric); E66.01 Morbid (severe) obesity due to excess calories; Z68.35 Body mass index [BMI] 35.0-35.9, adult | CPT/HCPCS: 93005; 99202 ==

== ENCOUNTER 2022-09-24 07:34 | Outpatient (REF) | payer OTHER, SELFPAY ==
--- NOTE | ~2022-09-24 | XR_ITS ---
EXAMINATION: XR KNEE AP STANDING CLINICAL INFORMATION: Right knee pain COMPARISON: Previous x-ray September 2022 TECHNIQUE: AP bilateral standing view of the knees and sunrise view of the right knee was obtained. FINDINGS: Bone alignment is normal. No fracture or dislocation. Normal joint spaces. Soft tissues are normal. XR/XR knee standing BI IMPRESSION: Normal AP bilateral knees and sunrise right knee x-ray.
--- NOTE | ~2022-09-24 | XR_ITS ---
EXAMINATION: XR KNEE AP STANDING CLINICAL INFORMATION: Right knee pain COMPARISON: Previous x-ray September 2022 TECHNIQUE: AP bilateral standing view of the knees and sunrise view of the right knee was obtained. FINDINGS: Bone alignment is normal. No fracture or dislocation. Normal joint spaces. Soft tissues are normal. XR/XR knee RT 1V IMPRESSION: Normal AP bilateral knees and sunrise right knee x-ray.
== END 2022-09-24 07:35 | disposition home or self-care (01) ==
LOC: HO.HOSX 07:34
PROVIDERS: Visit Provider Physician Assistant
DX: M17.11 Unilateral primary osteoarthritis, right knee (principal)
CPT/HCPCS: 20610; 73560; 73565; 99202; 99212; J1020

== ENCOUNTER → 2022-10-09 14:59 | Outpatient (REF) | payer OTHER, SELFPAY | LOC: HO.CARD 14:59 | PROVIDERS: PCP Family Medicine; Visit Provider Internal Medicine | DX: Z13.89 Encounter for screening for other disorder (principal) ==

== ENCOUNTER 2022-11-14 08:10 | Emergency (ER) | payer OTHER, SELFPAY ==
--- NOTE | ~2022-11-14 | CT_ITS ---
CT ANGIOGRAM NECK WITH CONTRAST CT ANGIOGRAM BRAIN WITH CONTRAST CLINICAL INFORMATION: Left upper extremity/left lower extremity weakness. COMPARISON: CT neck 10/28/2020. TECHNIQUE: Test bolus sequences followed by intravenous administration 70 mL of Omnipaque 300. Helical imaging was performed in the axial plane from the thoracic inlet to the skull vertex. Delayed postcontrast imaging of the head was also performed. The data was processed at the interventional technologist workstation for generation of MIP sequences. Angled MIPs and volume rendered reformatted images were also generated at an offline 3D workstation under concurrent supervision. Stenoses are assessed in accordance with NASCET criteria unless otherwise indicated. This CT examination was performed using dose optimization techniques as appropriate, variously including the following: *Automated exposure control *Adjustment of mA and/or kV according to patient size (this includes techniques or standardized protocols for targeted exams where dose is matched to indication/reason for exam; i.e. extremities or head) *Use of iterative reconstruction technique FINDINGS: BRAIN: [There is no intracranial hemorrhage, hydrocephalus, extra-axial surface collection, midline shift, or other herniation pattern. Roque to white matter differentiation is diffusely maintained without evidence of an evolved acute territorial infarct. The basilar cisterns are preserved. No significant soft tissue abnormality. No acute osseous abnormality. There is a small right mastoid effusion. CERVICAL SOFT TISSUES AND LUNG APICES: Imaged upper lungs are clear. Mild cervical spondylosis. Thyroidectomy changes. NECK CTA: Left common carotid artery arises from the brachiocephalic artery, an anatomic variant. Proximal arch vessels are non-stenotic. The vertebral arteries are codominant. No significant ostial stenosis is visualized on either side. Both vertebral arteries are widely patent throughout their extracranial cervical course. Both common and internal carotid arteries are normal in course and caliber.] BRAIN CTA: [There is normal opacification of major intracranial arteries. No focal flow-limiting stenosis nor discrete proximal large artery occlusion. No aneurysm. Timing of the contrast bolus allows assessment of the major dural venous sinuses, which all opacify normally] CT/CT angio head neck IMPRESSION: - No acute intracranial findings. - No significant arterial stenoses and no acute arterial occlusions within the head or neck.
[2022-11-14 08:13] VITALS: BP 120/48; PULSE 80; RESP 16; TEMP 36.6; O2SAT 95; BMI 35.2
--- NOTE | 2022-11-14 09:09 | ECG_ITS ---
Test Reason : left arm pain Blood Pressure : / mmHG Vent. Rate : 079 BPM Atrial Rate : 079 BPM P-R Int : 176 ms QRS Dur : 110 ms QT Int : 384 ms P-R-T Axes : 047 -10 053 degrees QTc Int : 440 ms Artifact in tracing Normal sinus rhythm Incomplete right bundle branch block Borderline ECG When compared with ECG of 13-DEC-2020 12:52, No significant change was found Referred By: Robyn Alford Electronically Signed By:CECELIA ODELL
--- NOTE | 2022-11-14 09:35 | PC.NURSE ---
iv inserted, labs drawn, urine obtained
[2022-11-14 09:36] LABS: MANUAL DIFF FLAG NO
[2022-11-14 09:42] LABS: Basophils Percent Auto 0.4 % (0-2); Eosinophils Absolute Auto 0.2 X10*3/uL (0.0-0.4); Eosinophils Percent Auto 1.6 % (0-4); Hematocrit 36.6 % (37.0-47.0); Hemoglobin 12.1 g/dl (12.0-16.0); Imm Gran Abs Auto 0.05 X10*3/uL (0.00-0.03); Imm Gran Pct Auto 0.5 % (0.0-0.4); Lymphocytes Absolute Auto 2.4 X10*3/uL (1.2-4.9); Lymphocytes Percent Auto 22.6 % (20-40); Mean Corpuscular HGB Conc 33.1 g/dl (31.0-35.0); Mean Corpuscular Hemoglobin 27.6 pg (27.0-33.0); Mean Corpuscular Volume 83.6 fL (80.0-98.0); Mean Platelet Volume 9.8 fL (9.4-12.3); Monocytes Absolute Auto 0.7 X10*3/uL (0.1-1.2); Monocytes Percent Auto 6.2 % (2-11); Neutrophils Absolute Auto 7.3 x10*3/uL (2.0-8.3); Neutrophils Percent Auto 68.7 % (45-73); Platelet Count 279 X10*3/uL (160-400); Red Blood Count 4.38 X10*6/uL (4.20-5.50); Red Cell Distribution Width 13.9 % (11.0-16.0); White Blood Count 10.6 X10*3/uL (4.8-10.8)
[2022-11-14 09:43] LABS: Appearance Urine Clear; Color Urine Yellow; Glucose Urine UA >=1000 mg/dL (Negative); Leukocyte Esterase Urine Negative (Negative); Nitrite Urine Negative (Negative); UMIC TRIGGER UACC YES; Urine Blood Negative (Negative); Urine Ketones Negative (Negative); Urine Protein Negative (Neg-Trace)
[2022-11-14 09:48] LABS: Bacteria Urine None Seen (None Seen); Hyaline Casts Urine 0-2 /LPF (0-2); RBC Urine 0-2 /HPF (0-2); Squamous Epithelial Cell Urine 0-2 /HPF (0-2); WBC Urine 0-5 /HPF (0-5)
[2022-11-14 10:03] LABS: Alanine Aminotransferase 26 U/L (0-31); Albumin Level 4.2 g/dL (3.5-5.0); Alkaline Phosphatase 83 U/L (39-117); Anion Gap 15 (12-20); Aspartate Amino Transferase 21 U/L (5-31); Bilirubin Total 0.2 mg/dL (0.0-1.0); Blood Urea Nitrogen 17 mg/dL (9-16); Calcium 9.3 mg/dL (8.4-10.2); Carbon Dioxide 26 mmol/L (22-29); Chloride 102 mmol/L (96-108); Creatinine Clr Calc Pharmacy 73.1; Estimated Glomerular Filt Rate 51; Glucose Random 133 mg/dL (60-115); Potassium 4.5 mmol/L (3.3-5.1); Sodium 138 mmol/L (135-145); Total Protein 6.9 g/dL (6.5-8.0)
--- NOTE | 2022-11-14 10:06 | ED.WEAKNESS ---
HPI - Weakness General Chief complaint: Extremity Problem Stated complaint: L Arm Pain No Injury Time Seen by Provider: 11/14/22 08:41 Source: patient Mode of arrival: ambulatory Limitations: no limitations History of Present Illness HPI Narrative: 52-year-old female with a past medical history of DANIEL, DM 2, thyroid cancer status post thyroidectomy with resulting hypothyroid, JESICA positive, bipolar disorder, and COPD presents to the hospital today with complaints of 4 day history of left arm pain with bilateral arm bruising. She also reports left arm and leg weakness this with difficulty ambulating for long periods for the past 2 weeks. She denies any known injury. She denies any chest pain, shortness of breath, dizziness, vision changes, recent illness. She denies any family history of bleeding disorders. Duration: constant Location: LUE and LLE Migration: none Severity: moderate Relieving factors: none Exacerbating factors: none Associated symptoms: denies other symptoms Related Data Home Medications Medication Instructions Recorded Confirmed clonazepam 1 mg tablet (Klonopin) 1 mg PO TID PRN Anxiety 09/05/20 09/19/22 ferrous fumarate 324 mg (106 mg 324 mg PO BID 09/05/20 09/19/22 iron) tablet (Ferrocite) lisinopril 2.5 mg tablet 2.5 mg PO DAILY 09/05/20 09/19/22 metformin 500 mg tablet,extended 1,000 mg PO BID 09/05/20 09/19/22 release 24 hr montelukast 10 mg tablet 10 mg PO BEDTIME 09/05/20 09/19/22 (Singulair) vit no.95-ferrous 1 tab PO DAILY 09/05/20 09/19/22 fumarate 28 mg-folic acid 800 mcg tablet tramadol 50 mg tablet (Ultram) 50 mg PO Q8H PRN severe pain 09/05/20 09/19/22 trazodone 100 mg tablet 100 mg PO BEDTIME 09/05/20 09/19/22 acetaminophen 650 mg 650 mg PO Q8H PRN Pain 04/24/21 09/19/22 tablet,extended release albuterol sulfate 90 mcg/actuation 2 puff inhalation ONCE PRN Wheezing 04/24/21 09/19/22 aerosol inhaler alcohol swabs 0 pad topical DAILY 04/24/21 09/19/22 atorvastatin 40 mg tablet 40 mg PO DAILY 04/24/21 09/19/22 benztropine 1 mg tablet 1 mg PO DAILY 04/24/21 09/19/22 cetirizine 10 mg tablet (Zyrtec) 10 mg PO BEDTIME 04/24/21 09/19/22 fluticasone propionate 110 2 puff inhalation BID 04/24/21 09/19/22 mcg/actuation HFA aerosol inhaler (Flovent HFA) fluticasone propionate 50 2 spray intranasal DAILY PRN 04/24/21 09/19/22 mcg/actuation nasal Allergy Symptoms spray,suspension (Flonase Allergy Relief) glipizide 5 mg tablet 5 mg PO BID 04/24/21 09/19/22 haloperidol 5 mg tablet See Rx Instructions PO BID 04/24/21 09/19/22 methocarbamol 750 mg tablet 750 mg PO TID 04/24/21 09/19/22 bupropion HCl 300 mg 24 hr tablet, 300 mg PO DAILY PRN 06/07/22 09/19/22 extended release pantoprazole 20 mg tablet,delayed 20 mg PO BID 07/02/22 09/19/22 release aripiprazole 20 mg tablet 20 mg PO DAILY 09/24/22 aspirin 81 mg tablet,delayed 81 mg PO DAILY 09/24/22 release bupropion HCl 150 mg 24 hr tablet, 150 mg PO DAILY PRN 09/24/22 extended release empagliflozin 10 mg tablet 10 mg PO DAILY 09/24/22 (Jardiance) Previous Rx's Medication Instructions Recorded ferrous sulfate 325 mg (65 mg 325 mg PO DAILY 30 days #30 tabs 05/22/22 iron) tablet,delayed release celecoxib 200 mg capsule (Celebrex) 200 mg PO BID 30 days #60 caps 09/24/22 Tirosint-Michelle 200 mcg/mL oral 400 mcg (2 mL) PO DAILY 30 days 11/14/22 solution (levothyroxine) #60 mL Allergies Allergy/AdvReac Type Severity Reaction Status Date / Time acetaminophen [Percocet] Allergy Unknown Stomach Verified 09/24/22 08:49 Cramps. oxycodone [Percocet] Allergy Unknown stomach Verified 09/24/22 08:49 pain SEASONAL ALLERGIES Allergy Unknown UNKNOWN Uncoded 09/24/22 08:49 From PERCOCET AdvReac Unknown CRAMPS Uncoded 09/24/22 08:49 Review of Systems Review of Systems: In addition to documented HPI above, the additional ROS was obtained: CONSTITUTIONAL: Denies fever, chills, fatigue, headache, night sweats, or weight loss EYES: Denies vision changes, eye pain, swelling, redness, foreign body, discharge ENT: Hearing normal. Denies sore throat, swallowing difficulty. congestion, ear pain, no hoarseness or CV: Denies chest pain or epigastric pain. No edema, palpitations, or dyspnea on exertion RESP: Denies shortness of breath. Denies cough, wheezing, dyspnea. Denies smoke exposure GI: .Denies abdominal pain. Denies nausea, vomiting, constipation or diarrhea. No melena or hematochezia. : Denies irregular bleeding, and dysuria, urinary frequency, urinary incontinence/retention, urgency. Denies flank pain, hematuria MSK: Denies recent trauma, change in gait, myalgias, joint swelling or pain SKIN: Denies no lesions, rashes, or sores NEURO: Denies new numbness, tingling, dizziness, paresthesias. No loss of consciousness. Denies headache ENDOCRINE: Denies unexpected weight loss. Denies polyuria, polydipsia. No temperature intolerance HEME/ONC: Denies bleeding disorders, or lymphadenopathy PSYCH: Denies anxiety/panic, depression, SI/HI, or social issues. Yes all other systems are reviewed and are negative [facility] Past Medical History Attestation statement: The following information was validated with the patient. Source: old records reviewed Medical History JESICA positive Bipolar 1 disorder Bipolar disorder Cervical cancer COPD (chronic obstructive pulmonary disease) COPD (chronic obstructive pulmonary disease) GERD (gastroesophageal reflux disease) Goiter High cholesterol History of thyroid cancer HLD (hyperlipidemia) Hypercalcemia Hypothyroidism Morbid obesity Multinodular goiter DANIEL (obstructive sleep apnea) Pancreatitis Postoperative hypothyroidism Sacroiliitis Schizoaffective disorder T2DM (type 2 diabetes mellitus) Type 2 diabetes mellitus Vitamin D deficiency Surgical History Hx of cholecystectomy Hx of total thyroidectomy Hx of tubal ligation Family History Family History Father Bipolar 1 disorder Mother Diabetes mellitus Hypertension Hyperlipidemia COPD (chronic obstructive pulmonary disease) Social History Social History Household Members: Spouse and Children Housing: Apartment Alcohol intake: never Patient Tobacco Use Status: Former Tobacco user Tobacco use type: Cigarette Cigarettes Per Day: 3 Substance Use Type: Marijuana Advance Directives: No Advance Directives Information Provided: Yes service: No Current occupational status: other 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: Yes (Stress) Physical Exam Vital Signs: Vital Signs: Last Vital Signs Temp 97.9 F 11/14/22 08:13 Pulse 80 11/14/22 08:13 Resp 16 11/14/22 08:13 BP 120/48 L 11/14/22 08:13 Pulse Ox 95 11/14/22 08:13 O2 Del Method 11/14/22 08:13 BMI result Body Mass Index 35.2 Const: General: cooperative, alert and awake Nutritional Appearance: well nourished Orientation/consciousness: patient oriented x3 Limitations: no limitations HEENT: Head: Yes normal to inspection, Yes normocephalic and Yes atraumatic Ears: hearing grossly normal bilaterally and external ears normal General nose exam: Normal external nose present and Normal nares present Face and sinus: Yes normal facial exam and Yes face symmetric Mouth: Normal oral and palatal mucosa present Eyes: General: appearance normal, both eyes and all related structures Visual Oliver: normal visual oliver by confrontation Alignment and Position: alignment normal Periorbital: periorbital findings normal Eyelids: Yes eyelids normal Conjunctivae: conjunctivae normal Sclerae: sclerae normal Corneas: corneas normal Pupils: Equal, round and reactive pupils present EOM: EOMs intact bilaterally Neck: Neck: Yes normal visual inspection, Yes full ROM and Yes no lymphadenopathy Chest: Chest palpation & inspection: normal inspection of the chest Resp: Effort & Inspection: normal respiratory effort, no cough and not labored Auscultation: clear to auscultation bilaterally, no crackles, no rhonchi and no wheezes Cardio: Rate: regular rate Rhythm: regular rhythm GI: Inspection: Yes normal to inspection Palpation (GI): Soft to palpation and nontender Auscultation: normal bowel sounds : General: Yes no CVA tenderness Back/Spine/Pelvis: Back: no CVA tenderness Cervical Spine: cervical ROM normal Thoracic/Lumbar Spine: thoraco-lumbar ROM normal Skin: General skin exam: no rashes or lesions noted and ecchymosis (Several bruises noted in various state of healing) Neuro: General: patient oriented x3, tone normal and moves all extremities Cranial nerves: Yes Equal, round and reactive pupils present, Yes Normal facial strength present, Yes Midline tongue present, Yes Ability to bilaterally rotate head present and Yes Ability to bilaterally elevate shoulders present Cognition (Neuro): normal cognition Gait exam (Neuro): Normal gait present Motor exam (neuro): 5/5 motor strength present throughout Extrem: Other: Ecchymosis noted on BUE in various states of healing. Ecchymosis noted on left foot near 2nd and 3rd toe. General: Yes normal to inspection, Yes full ROM and Yes capillary refill normal Course Course Course Narrative: 0910: CT angio head/neck ordered due to complaints of weakness in right arm and leg. No neuro deficits noted on exam. 1100: Blood work unremarkable for signs of anemia, thrombocytopenia, or electrolyte imbalances. CT angio completed pending read 1200: CT angio negative for any intracranial pathology, arterial stenosis, or acute arterial occlusions. Medications Administered Discontinued Medications Generic Name Dose Route Start Last Admin Trade Name Freq PRN Reason Stop Dose Admin Iohexol 100 ml 11/14/22 10:51 11/14/22 10:52 Iohexol 350 Mg/Ml 100 Ml Infus..Btl IV 11/14/22 10:52 70 ml ONCE ONE Administration Medical Decision Making Medical Decision Making [facility] Narrative: 52-year-old female with a past medical history of DANIEL, DM 2, thyroid cancer status post thyroidectomy with resulting hypothyroid, JESICA positive, bipolar disorder, and COPD presents to the hospital today with complaints of 4 day history of left arm pain with bilateral arm bruising. She also reports left arm and leg weakness this with difficulty ambulating for long periods for the past 2 weeks. Blood work unremarkable with no anemia or thrombocytopenia. Chemistry with elevated blood glucose level. Urinalysis negative for infection, elevated urine glucose level noted. EKG is normal sinus rhythm with incomplete right bundle branch block which is unchanged from her previous EKG done on 12/13/2020. CT angio head/neck with no acute intracranial findings, no significant arterial stenosis, no acute arterial occlusions within head or neck. Patient cleared for discharge at this time with recommendation to follow the primary care provider regarding further treatment and management of her diabetes and her complaints bruising. HPI, PE, diagnostic, and plan discussed with patient with no unanswered questions at this time. Patient educated to return to the emergency department with new, worsening, or concerning emergent symptoms. *Refer to Course for additional information on consultations, diagnostic interpretation, consultations, emergency department stay, conversations with patient and family, shared decision making with patient, and more information on medical decision making* Lab Data MDM Lab Attestation statement: I reviewed the patient's lab results. Result Diagrams: 11/14/22 09:32 11/14/22 09:32 Labs: Lab Results 11/14/22 11/14/22 11/14/22 Range/Units 09:32 09:32 09:32 WBC 10.6 (4.8-10.8) X10*3/uL RBC 4.38 (4.20-5.50) X10*6/uL Hgb 12.1 (12.0-16.0) g/dl Hct 36.6 L (37.0-47.0) % MCV 83.6 (80.0-98.0) fL MCH 27.6 (27.0-33.0) pg MCHC 33.1 (31.0-35.0) g/dl RDW 13.9 (11.0-16.0) % Plt Count 279 (160-400) X10*3/uL MPV 9.8 (9.4-12.3) fL Immature Gran % (Auto) 0.5 H (0.0-0.4) % Neut % (Auto) 68.7 (45-73) % Lymph % (Auto) 22.6 (20-40) % [place] % (Auto) 6.2 (2-11) % Eos % (Auto) 1.6 (0-4) % Baso % (Auto) 0.4 (0-2) % Lymph # (Auto) 2.4 (1.2-4.9) X10*3/uL [place] # (Auto) 0.7 (0.1-1.2) X10*3/uL Eos # (Auto) 0.2 (0.0-0.4) X10*3/uL Baso # (Auto) 0.0 (0.0-0.2) X10*3/uL Abs Immat Gran (auto) 0.05 H (0.00-0.03) X10*3/uL Absolute Neuts (auto) 7.3 (2.0-8.3) x10*3/uL Absolute Nucleated RBC 0.000 (0.0-0.012) X10*3/uL Nucleated RBC % (auto) 0.0 (0.0-0.2) /100WBC Sodium 138 (135-145) mmol/L Potassium 4.5 (3.3-5.1) mmol/L Chloride 102 (96-108) mmol/L Carbon Dioxide 26 (22-29) mmol/L Anion Gap 15 (12-20) BUN 17 H D (9-16) mg/dL Creatinine 1.13 (0.5-1.4) mg/dL Estim Creat Clear Calc 73.1 Estimated GFR 51 Random Glucose 133 H (60-115) mg/dL Calcium 9.3 (8.4-10.2) mg/dL Total Bilirubin 0.2 (0.0-1.0) mg/dL AST 21 (5-31) U/L ALT 26 (0-31) U/L Alkaline Phosphatase 83 (39-117) U/L Total Protein 6.9 (6.5-8.0) g/dL Albumin 4.2 (3.5-5.0) g/dL Urine Color Yellow Urine Appearance Clear Urine pH 6.0 (5.0-9.0) Ur Specific [place] 1.010 (1.005-1.025) Urine Protein Negative (Neg-Trace) mg/dL Urine Glucose (UA) >=1000 H (Negative) mg/dL Urine Ketones Negative (Negative) mg/dL Urine Blood Negative (Negative) Urine Nitrite Negative (Negative) Ur Leukocyte Esterase Negative (Negative) Urine RBC 0-2 (0-2) /HPF Urine WBC 0-5 (0-5) /HPF Ur Squamous Epith Cells 0-2 (0-2) /HPF Urine Bacteria None Seen (None Seen) Hyaline Casts 0-2 (0-2) /LPF Independent Interpretation I performed an independent interpretation of an: EKG Interpretation: I have independently reviewed the EKG showing normal sinus rhythm with known right bundle-branch block at a rate of 79 bpm. Vent. Rate : 079 BPM ? ? Atrial Rate : 079 BPM ?? P-R Int : 176 ms? QRS Dur : 110 ms ? ?QT Int : 384 ms ? ? ? P-R-T Axes : 047 -10 053 degrees ?? QTc Int : 440 ms ? Normal sinus rhythm Incomplete right bundle branch block Borderline ECG When compared with ECG of 13-DEC-2020 12:52, No significant change was found Radiology Impression Discussion of test interpretation with radiology: I have reviewed the radiologist's reading. Radiologist Impression: I have independently reviewed the CT angio head/neck which shows no acute intracranial pathology, arterial stenosis, or occlusions. CT ANGIOGRAM NECK WITH CONTRAST CT ANGIOGRAM BRAIN WITH CONTRAST CLINICAL INFORMATION: Left upper extremity/left lower extremity weakness.? COMPARISON: CT neck 10/28/2020. TECHNIQUE: Test bolus sequences followed by intravenous administration 70 mL of Omnipaque 300. Helical imaging was performed in the axial plane from the thoracic inlet to the skull vertex. Delayed postcontrast imaging of the head was also performed. The data was processed at the automation technologist workstation for generation of MIP sequences. Angled MIPs and volume rendered reformatted images were also generated at an offline 3D workstation under concurrent supervision. Stenoses are assessed in accordance with NASCET criteria unless otherwise indicated. This CT examination was performed using dose optimization techniques as appropriate, variously including the following: *Automated exposure control *Adjustment of mA and/or kV according to patient size (this includes techniques or standardized protocols for targeted exams where dose is matched to indication/reason for exam; i.e. extremities or head) *Use of iterative reconstruction technique FINDINGS: BRAIN: [There is no intracranial hemorrhage, hydrocephalus, extra-axial surface collection, midline shift, or other herniation pattern. Roque to white matter differentiation is diffusely maintained without evidence of an evolved acute territorial infarct. The basilar cisterns are preserved. No significant soft tissue abnormality. No acute osseous abnormality. There is a small right mastoid effusion. CERVICAL SOFT TISSUES AND LUNG APICES: Imaged upper lungs are clear. Mild cervical spondylosis. Thyroidectomy changes. NECK CTA: Left common carotid artery arises from the brachiocephalic artery, an anatomic variant. Proximal arch vessels are non-stenotic. The vertebral arteries are codominant. No significant ostial stenosis is visualized on either side. Both vertebral arteries are widely patent throughout their extracranial cervical course. Both common and internal carotid arteries are normal in course and caliber.] BRAIN CTA: [There is normal opacification of major intracranial arteries. No focal flow-limiting stenosis nor discrete proximal large artery occlusion. No aneurysm. Timing of the contrast bolus allows assessment of the major dural venous sinuses, which all opacify normally] CT/CT angio head neck IMPRESSION: - No acute intracranial findings. ? - No significant arterial stenoses and no acute arterial occlusions within the head or neck. Dictated By: Jonatan Means MD Signed By: <Electronically signed by Jonatan Means MD in OV> 11/14/22 1159 DD/ 1054 TD/TT:? [employer] Supervisor: PENELOPE Discharge Plan Discharge Clinical Impression: Bruising, Weakness Patient Disposition: Home, Self-Care Additional Instructions: Your CT scan is negative for any sign of stroke, bleed or injury in your head or neck. Your blood work is unremarkable for signs of infection, anemia, or low platelets. Your blood sugar is elevated in your blood work. Your urine is negative for infection, however; the glucose in your urine is elevated at greater than 1000. It is recommended that you follow-up with your primary care provider for further treatment and management. Please return to the emergency department with new, worsening, or any concerning emergent symptoms. Prescriptions: No Action ferrous sulfate 325 mg (65 mg iron) tablet,delayed release (DR/EC) 325 mg PO DAILY 30 Days Qty: 30 1RF Tirosint-Michelle 200 mcg/mL solution 400 mcg PO DAILY 30 Days Qty: 60 11RF ferrous fumarate [Ferrocite] 324 mg (106 mg iron) tablet 324 mg PO BID lisinopril 2.5 mg tablet 2.5 mg PO DAILY metformin 500 mg tablet extended release 24 hr 1,000 mg PO BID montelukast [Singulair] 10 mg tablet 10 mg PO BEDTIME PNV cmb#95-ferrous fumarate-FA 28 mg iron- 800 mcg tablet 1 tab PO DAILY tramadol [Ultram] 50 mg tablet 50 mg PO Q8H PRN (Reason: severe pain) clonazepam [Klonopin] 1 mg tablet 1 mg PO TID PRN (Reason: Anxiety) trazodone 100 mg tablet 100 mg PO BEDTIME atorvastatin 40 mg tablet 40 mg PO DAILY acetaminophen 650 mg tablet extended release 650 mg PO Q8H PRN (Reason: Pain) albuterol sulfate 90 mcg/actuation HFA aerosol inhaler 2 puff inhalation ONCE PRN (Reason: Wheezing) haloperidol 5 mg tablet See Rx Instructions PO BID Rx Instructions: 1/2 tab am, 1/2 tab pm PO 2 times a day; benztropine 1 mg tablet 1 mg PO DAILY methocarbamol 750 mg tablet 750 mg PO TID Flovent HFA 110 mcg/actuation HFA aerosol inhaler 2 puff inhalation BID fluticasone propionate [Flonase Allergy Relief] 50 mcg/actuation spray,suspension 2 spray intranasal DAILY PRN (Reason: Allergy Symptoms) cetirizine [Zyrtec] 10 mg tablet 10 mg PO BEDTIME glipizide 5 mg tablet 5 mg PO BID alcohol swabs Pads, Medicated 0 pad topical DAILY pantoprazole 20 mg tablet,delayed release (DR/EC) 20 mg PO BID bupropion HCl 300 mg tablet extended release 24 hr 300 mg PO DAILY PRN aspirin 81 mg tablet,delayed release (DR/EC) 81 mg PO DAILY Jardiance 10 mg tablet 10 mg PO DAILY aripiprazole 20 mg tablet 20 mg PO DAILY bupropion HCl 150 mg tablet extended release 24 hr 150 mg PO DAILY PRN celecoxib [Celebrex] 200 mg capsule 200 mg PO BID 30 Days Qty: 60 3RF Referrals: Linda Murphy DO [Primary Care Provider] - Interventions: ED Discharge Assessment Last Done: 11/14/22 12:45 Discharge Date/Time: 11/14/22 12:45 Print Language: Bermudian
[2022-11-14] MEDS: iohexoL 350 MG/ML 100 ML INFUS..BTL IV (10:52)
== END 2022-11-14 12:45 | disposition home or self-care (01) ==
PROVIDERS: Nurse Practitioner Family; Emergency Provider Emergency Medicine Emergency Medical Services; PCP Family Medicine
DX: R53.1 Weakness (principal); S40.022A Contusion of left upper arm, initial encounter; S40.021A Contusion of right upper arm, initial encounter; X58.XXXA Exposure to other specified factors, initial encounter; E11.9 Type 2 diabetes mellitus without complications; E78.5 Hyperlipidemia, unspecified; F25.9 Schizoaffective disorder, unspecified; F12.90 Cannabis use, unspecified, uncomplicated; I45.10 Unspecified right bundle-branch block; Z87.891 Personal history of nicotine dependence; Z79.84 Long term (current) use of oral hypoglycemic drugs; Z79.02 Long term (current) use of antithrombotics/antiplatelets; Z79.82 Long term (current) use of aspirin; Z79.899 Other long term (current) drug therapy; Y93.9 Activity, unspecified; Y92.9 Unspecified place or not applicable; Y99.9 Unspecified external cause status
CPT/HCPCS: 36415; 70496; 70498; 80053; 81001; 85025; 93005; 99284; Q9967

== ENCOUNTER 2022-11-19 09:11 | Outpatient (REF) | payer OTHER, SELFPAY ==
[2022-11-19 11:43] LABS: Thyroid Stimulating Hormone 3.67 uIU/mL (0.32-4.0)
[2022-11-23 03:54] LABS: Thyroglobulin Antibody <1 IU/mL (<=1)
[2022-11-25 17:19] LABS: Thyroglobulin Level 0.1 ng/mL
== END 2022-11-19 09:12 | disposition home or self-care (01) ==
LOC: HO.LAB 09:11
PROVIDERS: PCP Family Medicine; Visit Provider Internal Medicine
DX: Z85.850 Personal history of malignant neoplasm of thyroid (principal)
CPT/HCPCS: 36415; 84432; 84439; 84443; 86800

== ENCOUNTER 2023-02-08 09:34 | Outpatient (REF) | payer OTHER, SELFPAY ==
[2023-02-13 04:34] LABS: Thyroglobulin Antibody <1 IU/mL (<=1)
[2023-02-13 05:47] LABS: Thyroglobulin Level 0.2 ng/mL
== END 2023-02-08 09:35 | disposition home or self-care (01) ==
LOC: HO.LAB 09:34
PROVIDERS: Visit Provider Internal Medicine
DX: E89.0 Postprocedural hypothyroidism (principal); Z85.850 Personal history of malignant neoplasm of thyroid
CPT/HCPCS: 36415; 84432; 86800

== ENCOUNTER 2023-02-12 15:48 | Emergency (ER) | payer OTHER, MEDICAID, SELFPAY ==
--- NOTE | ~2023-02-12 | US_ITS ---
EXAMINATION: US PELVIS AND TRANSVAGINAL ULTRASOUND PELVIC OVARIAN DOPPLER CLINICAL INFORMATION: Vaginal bleeding. Pelvic pain. COMPARISON: CT abdomen/pelvis from 01/25/2022. TECHNIQUE: Sonographic imaging of the pelvis performed using transabdominal and transvaginal transducers. FINDINGS: UTERUS AND CERVIX The anteflexed, anteverted uterus measures approximately 8.5 x 4.8 x 5 cm ([id number] x AP x transverse dimension). 1.5 x 1 x 0.9 cm focus of heterogeneous echotexture, consistent with leiomyoma, of the right uterine body. The cervix is normal. The endometrium has normal echotexture and measures up to 0.6 cm AP. ADNEXA: The right ovary is 1.2 x 0.7 x 0.9 cm and left ovary 4.2 x 3 x 3.2 cm. The left ovary is enlarged due to presence of a 3.7 x 2.8 x 2.9 cm simple cyst. This is almost certainly benign. No follow-up imaging recommended, if asymptomatic. Color Doppler images with spectral waveforms show presence of normal arterial and venous flow within each ovary. FREE FLUID: Trace pelvic free fluid is noted. US/US pelvic and transvaginal IMPRESSION: * The endometrium is normal. No endometrial polyp or submucosal leiomyoma. No specific source of vaginal bleeding is identified. * 1.5 cm intramural leiomyoma of the right uterine body. * 3.7 cm simple cyst of the left ovary. This is almost certainly benign. No suspicious ovarian lesion or ovarian torsion.
--- NOTE | ~2023-02-12 | US_ITS ---
EXAMINATION: US PELVIS AND TRANSVAGINAL ULTRASOUND PELVIC OVARIAN DOPPLER CLINICAL INFORMATION: Vaginal bleeding. Pelvic pain. COMPARISON: CT abdomen/pelvis from 01/25/2022. TECHNIQUE: Sonographic imaging of the pelvis performed using transabdominal and transvaginal transducers. FINDINGS: UTERUS AND CERVIX The anteflexed, anteverted uterus measures approximately 8.5 x 4.8 x 5 cm ([id number] x AP x transverse dimension). 1.5 x 1 x 0.9 cm focus of heterogeneous echotexture, consistent with leiomyoma, of the right uterine body. The cervix is normal. The endometrium has normal echotexture and measures up to 0.6 cm AP. ADNEXA: The right ovary is 1.2 x 0.7 x 0.9 cm and left ovary 4.2 x 3 x 3.2 cm. The left ovary is enlarged due to presence of a 3.7 x 2.8 x 2.9 cm simple cyst. This is almost certainly benign. No follow-up imaging recommended, if asymptomatic. Color Doppler images with spectral waveforms show presence of normal arterial and venous flow within each ovary. FREE FLUID: Trace pelvic free fluid is noted. US/US pelvic ovarian doppler IMPRESSION: * The endometrium is normal. No endometrial polyp or submucosal leiomyoma. No specific source of vaginal bleeding is identified. * 1.5 cm intramural leiomyoma of the right uterine body. * 3.7 cm simple cyst of the left ovary. This is almost certainly benign. No suspicious ovarian lesion or ovarian torsion.
[2023-02-12 17:15] LABS: MANUAL DIFF FLAG NO
[2023-02-12 17:17] LABS: Basophils Absolute Auto 0.1 X10*3/uL (0.0-0.2); Basophils Percent Auto 0.4 % (0-2); Eosinophils Absolute Auto 0.3 X10*3/uL (0.0-0.4); Eosinophils Percent Auto 1.8 % (0-4); Hematocrit 41.1 % (37.0-47.0); Hemoglobin 13.7 g/dl (12.0-16.0); Imm Gran Abs Auto 0.06 X10*3/uL (0.00-0.03); Imm Gran Pct Auto 0.4 % (0.0-0.4); Lymphocytes Absolute Auto 3.7 X10*3/uL (1.2-4.9); Lymphocytes Percent Auto 26.4 % (20-40); Mean Corpuscular HGB Conc 33.3 g/dl (31.0-35.0); Mean Corpuscular Hemoglobin 27.1 pg (27.0-33.0); Mean Corpuscular Volume 81.4 fL (80.0-98.0); Mean Platelet Volume 9.6 fL (9.4-12.3); Monocytes Absolute Auto 0.8 X10*3/uL (0.1-1.2); Monocytes Percent Auto 5.8 % (2-11); Neutrophils Percent Auto 65.2 % (45-73); Platelet Count 331 X10*3/uL (160-400); Red Blood Count 5.05 X10*6/uL (4.20-5.50); Red Cell Distribution Width 14.6 % (11.0-16.0); White Blood Count 13.8 X10*3/uL (4.8-10.8)
[2023-02-12 17:25] VITALS: BP 95/54; PULSE 85; RESP 18; TEMP 36.6; O2SAT 96; BMI 33.5
--- NOTE | 2023-02-12 17:25 | ED.GENADULT ---
HPI - General Adult General Chief complaint: Vaginal Bleeding <EDWARD Ribeiro - Last Filed: 02/12/23 17:26> Stated complaint: Vaginal bleeding/Dizziness <EDWARD Ribeiro - Last Filed: 02/12/23 17:26> Time Seen by Provider: 02/12/23 22:48 <EDWARD Ribeiro - Last Filed: 02/12/23 17:26> Source: patient <Naomy Beckett MD - Last Filed: 02/12/23 23:35> Mode of arrival: ambulatory <Naomy Beckett MD - Last Filed: 02/12/23 23:35> History of Present Illness HPI narrative: 52-year-old female who reports that she was and menopause and then began having vaginal bleeding but denies any associated fever, chills, nausea, vomiting. <Naomy Beckett MD - Last Filed: 02/12/23 23:35> Related Data Home medications: Home Medications Medication Instructions Recorded Confirmed clonazepam 1 mg tablet (Klonopin) 1 mg PO TID PRN Anxiety 09/05/20 09/19/22 ferrous fumarate 324 mg (106 mg 324 mg PO BID 09/05/20 09/19/22 iron) tablet (Ferrocite) lisinopril 2.5 mg tablet 2.5 mg PO DAILY 09/05/20 09/19/22 metformin 500 mg tablet,extended 1,000 mg PO BID 09/05/20 09/19/22 release 24 hr montelukast 10 mg tablet 10 mg PO BEDTIME 09/05/20 09/19/22 (Singulair) vit no.95-ferrous 1 tab PO DAILY 09/05/20 09/19/22 fumarate 28 mg-folic acid 800 mcg tablet tramadol 50 mg tablet (Ultram) 50 mg PO Q8H PRN severe pain 09/05/20 09/19/22 trazodone 100 mg tablet 100 mg PO BEDTIME 09/05/20 09/19/22 acetaminophen 650 mg 650 mg PO Q8H PRN Pain 04/24/21 09/19/22 tablet,extended release albuterol sulfate 90 mcg/actuation 2 puff inhalation ONCE PRN Wheezing 04/24/21 09/19/22 aerosol inhaler alcohol swabs 0 pad topical DAILY 04/24/21 09/19/22 atorvastatin 40 mg tablet 40 mg PO DAILY 04/24/21 09/19/22 benztropine 1 mg tablet 1 mg PO DAILY 04/24/21 09/19/22 cetirizine 10 mg tablet (Zyrtec) 10 mg PO BEDTIME 04/24/21 09/19/22 fluticasone propionate 110 2 puff inhalation BID 04/24/21 09/19/22 mcg/actuation HFA aerosol inhaler (Flovent HFA) fluticasone propionate 50 2 spray intranasal DAILY PRN 04/24/21 09/19/22 mcg/actuation nasal Allergy Symptoms spray,suspension (Flonase Allergy Relief) glipizide 5 mg tablet 5 mg PO BID 04/24/21 09/19/22 haloperidol 5 mg tablet See Rx Instructions PO BID 04/24/21 09/19/22 methocarbamol 750 mg tablet 750 mg PO TID 04/24/21 09/19/22 bupropion HCl 300 mg 24 hr tablet, 300 mg PO DAILY PRN 06/07/22 09/19/22 extended release pantoprazole 20 mg tablet,delayed 20 mg PO BID 07/02/22 09/19/22 release aripiprazole 20 mg tablet 20 mg PO DAILY 09/24/22 aspirin 81 mg tablet,delayed 81 mg PO DAILY 09/24/22 release bupropion HCl 150 mg 24 hr tablet, 150 mg PO DAILY PRN 09/24/22 extended release empagliflozin 10 mg tablet 10 mg PO DAILY 09/24/22 (Jardiance) Previous Rx's Medication Instructions Recorded ferrous sulfate 325 mg (65 mg 325 mg PO DAILY 30 days #30 tabs 05/22/22 iron) tablet,delayed release celecoxib 200 mg capsule (Celebrex) 200 mg PO BID 30 days #60 caps 09/24/22 Tirosint-Michelle 200 mcg/mL oral 400 mcg (2 mL) PO DAILY 30 days 11/19/22 solution (levothyroxine) #60 mL cefdinir 300 mg capsule 300 mg PO BID 5 days #10 caps 02/12/23 <EDWARD Ribeiro - Last Filed: 02/12/23 17:26> Allergies/adverse reactions: Allergies Allergy/AdvReac Type Severity Reaction Status Date / Time acetaminophen [Percocet] Allergy Unknown Stomach Verified 09/24/22 08:49 Cramps. oxycodone [Percocet] Allergy Unknown stomach Verified 09/24/22 08:49 pain SEASONAL ALLERGIES Allergy Unknown UNKNOWN Uncoded 09/24/22 08:49 From PERCOCET AdvReac Unknown CRAMPS Uncoded 09/24/22 08:49 <EDWARD Ribeiro - Last Filed: 02/12/23 17:26> Review of Systems Review of Systems: Pertinent positives and negatives as stated in HPI <Naomy Beckett MD - Last Filed: 02/12/23 23:35> PMFSH Past Medical History Source: nursing notes reviewed <Naomy Beckett MD - Last Filed: 02/12/23 23:35> Medical History: Medical History JESICA positive Bipolar 1 disorder Bipolar disorder Cervical cancer COPD (chronic obstructive pulmonary disease) COPD (chronic obstructive pulmonary disease) GERD (gastroesophageal reflux disease) Goiter High cholesterol History of thyroid cancer HLD (hyperlipidemia) Hypercalcemia Hypothyroidism Morbid obesity Multinodular goiter DANIEL (obstructive sleep apnea) Pancreatitis Postoperative hypothyroidism Sacroiliitis Schizoaffective disorder T2DM (type 2 diabetes mellitus) Type 2 diabetes mellitus Vitamin D deficiency <EDWARD Ribeiro - Last Filed: 02/12/23 17:26> Surgical History: Surgical History Hx of cholecystectomy Hx of total thyroidectomy Hx of tubal ligation <EDWARD Ribeiro - Last Filed: 02/12/23 17:26> Family History Family History: Family History Father Bipolar 1 disorder Mother Diabetes mellitus Hypertension Hyperlipidemia COPD (chronic obstructive pulmonary disease) <EDWARD Ribeiro - Last Filed: 02/12/23 17:26> Social History Social History: Social History Household Members: Spouse and Children Housing: Apartment Alcohol intake: never Patient Tobacco Use Status: Former Tobacco user Tobacco use type: Cigarette Cigarettes Per Day: 3 Substance Use Type: Marijuana Advance Directives: No Advance Directives Information Provided: No service: No Current occupational status: other 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: Yes (Stress) <EDWARD Ribeiro - Last Filed: 02/12/23 17:26> Physical Exam ED Vital Signs: Vital Signs - 24 hr 02/12/23 17:25 02/12/23 22:04 Temperature 97.9 F 98.5 F Pulse Rate 85 79 Respiratory Rate 18 16 Blood Pressure 95/54 L 107/58 L Pulse Oximetry 96 Oxygen Delivery Method Room Air Room Air BMI result Body Mass Index 33.5 <EDWARD Ribeiro - Last Filed: 02/12/23 17:26> Vital Signs - 24 hr 02/12/23 17:25 02/12/23 22:04 Temperature 97.9 F 98.5 F Pulse Rate 85 79 Respiratory Rate 18 16 Blood Pressure 95/54 L 107/58 L Pulse Oximetry 96 Oxygen Delivery Method Room Air Room Air BMI result Body Mass Index 33.5 VITAL SIGNS: Reviewed. GENERAL: Well developed, well nourished, in no acute distress. HEAD: Normocephalic/atraumatic EYES: PERRLA, EOMI LUNGS: Normal breath sounds. No adventitious sounds or accessory muscle use. SpO2<96> CARDIOVASCULAR: Regular rate and rhythm without noted murmurs ABDOMEN: Soft, non-tender, non-distended with bowel sounds. MUSCULOSKELETAL: No tenderness, deformities, or effusions noted on gross inspection. EXTREMITIES: No cyanosis, clubbing or edema. SKIN: Inspection of the skin reveals no rashes NEUROLOGIC: Alert and oriented x 4. Strength and sensation to light touch were grossly intact x 4. <Naomy Beckett MD - Last Filed: 02/12/23 23:35> Course Course Course Narrative: This is an RME: Additional HPI, ROS, PE not included below will be deferred to primary provider. 52-year-old female History of diabetes, iron deficiency anemia presents with heavy vaginal bleeding for the past 10 days, patient tells me she has not had a period for year over the past 10 days she has been having heavy bleeding saturating a pad every 30 minutes today. Patient reached out OBGYN who advised her to come in today. Patient feeling lightheaded and weak. physical exam benign. Vital signs stable. Plan labs. <EDWARD Ribeiro - Last Filed: 02/12/23 17:26> Medical Decision Making Medical Decision Making MDM Narrative: 52-year-old female who presents with possible postmenopausal bleeding, ultrasound demonstrates normal endometrium although there is a 1.5 cm intramural leiomyoma of the right uterus. Review of all other lab work and my interpretation is there are no acute findings other than UTI. Patient received initial antibiotics here in the emergency room. <Naomy Beckett MD - Last Filed: 02/12/23 23:35> Differential Diagnosis Please see the discussion above <Naomy Beckett MD - Last Filed: 02/12/23 23:35> Lab Data Please see the discussion above <Naomy Beckett MD - Last Filed: 02/12/23 23:35> Result Diagrams: 02/12/23 17:11 02/12/23 17:11 <EDWARD Ribeiro - Last Filed: 02/12/23 17:26> Labs: Lab Results 02/12/23 02/12/23 02/12/23 Range/Units 17:11 17:11 17:11 WBC 13.8 H (4.8-10.8) X10*3/uL RBC 5.05 (4.20-5.50) X10*6/uL Hgb 13.7 (12.0-16.0) g/dl Hct 41.1 (37.0-47.0) % MCV 81.4 (80.0-98.0) fL MCH 27.1 (27.0-33.0) pg MCHC 33.3 (31.0-35.0) g/dl RDW 14.6 (11.0-16.0) % Plt Count 331 (160-400) X10*3/uL MPV 9.6 (9.4-12.3) fL Immature Gran % (Auto) 0.4 (0.0-0.4) % Neut % (Auto) 65.2 (45-73) % Lymph % (Auto) 26.4 (20-40) % [place] % (Auto) 5.8 (2-11) % Eos % (Auto) 1.8 (0-4) % Baso % (Auto) 0.4 (0-2) % Lymph # (Auto) 3.7 (1.2-4.9) X10*3/uL [place] # (Auto) 0.8 (0.1-1.2) X10*3/uL Eos # (Auto) 0.3 (0.0-0.4) X10*3/uL Baso # (Auto) 0.1 (0.0-0.2) X10*3/uL Abs Immat Gran (auto) 0.06 H (0.00-0.03) X10*3/uL Absolute Neuts (auto) 9.0 H (2.0-8.3) x10*3/uL Absolute Nucleated RBC 0.000 (0.0-0.012) X10*3/uL Nucleated RBC % (auto) 0.0 (0.0-0.2) /100WBC Sodium 140 (135-145) mmol/L Potassium 4.3 (3.3-5.1) mmol/L Chloride 102 (96-108) mmol/L Carbon Dioxide 27 (22-29) mmol/L Anion Gap 15 (12-20) BUN 13 (9-16) mg/dL Creatinine 1.33 (0.5-1.4) mg/dL Estim Creat Clear Calc 62.6 Estimated GFR 42 Random Glucose 97 (60-115) mg/dL Calcium 9.7 (8.4-10.2) mg/dL Magnesium 1.9 (1.6-2.6) mg/dL Total Bilirubin 0.3 (0.0-1.0) mg/dL AST 20 (5-31) U/L ALT 21 (0-31) U/L Alkaline Phosphatase 87 (39-117) U/L Total Protein 7.3 (6.5-8.0) g/dL Albumin 4.4 (3.5-5.0) g/dL Lipase 66 (8-78) U/L Beta HCG, Quant < 2 mIU/mL Urine Color Urine Appearance Urine pH (5.0-9.0) Ur Specific [place] (1.005-1.025) Urine Protein (Neg-Trace) mg/dL Urine Glucose (UA) (Negative) mg/dL Urine Ketones (Negative) mg/dL Urine Blood (Negative) Urine Nitrite (Negative) Ur Leukocyte Esterase (Negative) Urine RBC (0-2) /HPF Urine WBC (0-5) /HPF Ur Squamous Epith Cells (0-2) /HPF Urine Bacteria (None Seen) Hyaline Casts (0-2) /LPF COVID-19 (ALEJANDRO) Negative (Negative) COVID-19 Clin Com See Note Blood Type Antibody Screen 02/12/23 02/12/23 02/12/23 Range/Units 17:40 19:49 19:55 WBC 14.6 H (4.8-10.8) X10*3/uL RBC 4.95 (4.20-5.50) X10*6/uL Hgb 14.0 (12.0-16.0) g/dl Hct 41.6 (37.0-47.0) % MCV 84.0 (80.0-98.0) fL MCH 28.3 (27.0-33.0) pg MCHC 33.7 (31.0-35.0) g/dl RDW 14.6 (11.0-16.0) % Plt Count 338 (160-400) X10*3/uL MPV 10.3 (9.4-12.3) fL Immature Gran % (Auto) 1.4 H (0.0-0.4) % Neut % (Auto) 63.4 (45-73) % Lymph % (Auto) 26.3 (20-40) % [place] % (Auto) 6.8 (2-11) % Eos % (Auto) 1.6 (0-4) % Baso % (Auto) 0.5 (0-2) % Lymph # (Auto) 3.8 (1.2-4.9) X10*3/uL [place] # (Auto) 1.0 (0.1-1.2) X10*3/uL Eos # (Auto) 0.2 (0.0-0.4) X10*3/uL Baso # (Auto) 0.1 (0.0-0.2) X10*3/uL Abs Immat Gran (auto) 0.20 H (0.00-0.03) X10*3/uL Absolute Neuts (auto) 9.3 H (2.0-8.3) x10*3/uL Absolute Nucleated RBC 0.000 (0.0-0.012) X10*3/uL Nucleated RBC % (auto) 0.0 (0.0-0.2) /100WBC Sodium (135-145) mmol/L Potassium (3.3-5.1) mmol/L Chloride (96-108) mmol/L Carbon Dioxide (22-29) mmol/L Anion Gap (12-20) BUN (9-16) mg/dL Creatinine (0.5-1.4) mg/dL Estim Creat Clear Calc Estimated GFR Random Glucose (60-115) mg/dL Calcium (8.4-10.2) mg/dL Magnesium (1.6-2.6) mg/dL Total Bilirubin (0.0-1.0) mg/dL AST (5-31) U/L ALT (0-31) U/L Alkaline Phosphatase (39-117) U/L Total Protein (6.5-8.0) g/dL Albumin (3.5-5.0) g/dL Lipase (8-78) U/L Beta HCG, Quant mIU/mL Urine Color RED Urine Appearance Cloudy Urine pH 7.0 (5.0-9.0) Ur Specific [place] <= 1.005 (1.005-1.025) Urine Protein 30 (1+) H (Neg-Trace) mg/dL Urine Glucose (UA) 500 H (Negative) mg/dL Urine Ketones Trace (Negative) mg/dL Urine Blood Large (3+) H (Negative) Urine Nitrite Positive H (Negative) Ur Leukocyte Esterase Small (1+) H (Negative) Urine RBC >20 H (0-2) /HPF Urine WBC 6-10 H (0-5) /HPF Ur Squamous Epith Cells 0-2 (0-2) /HPF Urine Bacteria 1+ (None Seen) Hyaline Casts 0-2 (0-2) /LPF COVID-19 (ALEJANDRO) (Negative) COVID-19 Clin Com Blood Type O Negative Antibody Screen NEGATIVE <EDWARD Ribeiro - Last Filed: 02/12/23 17:26> Lab Results 02/12/23 02/12/23 02/12/23 Range/Units 17:11 17:11 17:11 WBC 13.8 H (4.8-10.8) X10*3/uL RBC 5.05 (4.20-5.50) X10*6/uL Hgb 13.7 (12.0-16.0) g/dl Hct 41.1 (37.0-47.0) % MCV 81.4 (80.0-98.0) fL MCH 27.1 (27.0-33.0) pg MCHC 33.3 (31.0-35.0) g/dl RDW 14.6 (11.0-16.0) % Plt Count 331 (160-400) X10*3/uL MPV 9.6 (9.4-12.3) fL Immature Gran % (Auto) 0.4 (0.0-0.4) % Neut % (Auto) 65.2 (45-73) % Lymph % (Auto) 26.4 (20-40) % [place] % (Auto) 5.8 (2-11) % Eos % (Auto) 1.8 (0-4) % Baso % (Auto) 0.4 (0-2) % Lymph # (Auto) 3.7 (1.2-4.9) X10*3/uL [place] # (Auto) 0.8 (0.1-1.2) X10*3/uL Eos # (Auto) 0.3 (0.0-0.4) X10*3/uL Baso # (Auto) 0.1 (0.0-0.2) X10*3/uL Abs Immat Gran (auto) 0.06 H (0.00-0.03) X10*3/uL Absolute Neuts (auto) 9.0 H (2.0-8.3) x10*3/uL Absolute Nucleated RBC 0.000 (0.0-0.012) X10*3/uL Nucleated RBC % (auto) 0.0 (0.0-0.2) /100WBC Sodium 140 (135-145) mmol/L Potassium 4.3 (3.3-5.1) mmol/L Chloride 102 (96-108) mmol/L Carbon Dioxide 27 (22-29) mmol/L Anion Gap 15 (12-20) BUN 13 (9-16) mg/dL Creatinine 1.33 (0.5-1.4) mg/dL Estim Creat Clear Calc 62.6 Estimated GFR 42 Random Glucose 97 (60-115) mg/dL Calcium 9.7 (8.4-10.2) mg/dL Magnesium 1.9 (1.6-2.6) mg/dL Total Bilirubin 0.3 (0.0-1.0) mg/dL AST 20 (5-31) U/L ALT 21 (0-31) U/L Alkaline Phosphatase 87 (39-117) U/L Total Protein 7.3 (6.5-8.0) g/dL Albumin 4.4 (3.5-5.0) g/dL Lipase 66 (8-78) U/L Beta HCG, Quant < 2 mIU/mL Urine Color Urine Appearance Urine pH (5.0-9.0) Ur Specific [place] (1.005-1.025) Urine Protein (Neg-Trace) mg/dL Urine Glucose (UA) (Negative) mg/dL Urine Ketones (Negative) mg/dL Urine Blood (Negative) Urine Nitrite (Negative) Ur Leukocyte Esterase (Negative) Urine RBC (0-2) /HPF Urine WBC (0-5) /HPF Ur Squamous Epith Cells (0-2) /HPF Urine Bacteria (None Seen) Hyaline Casts (0-2) /LPF COVID-19 (ALEJANDRO) Negative (Negative) COVID-19 Clin Com See Note Blood Type Antibody Screen 02/12/23 02/12/23 02/12/23 Range/Units 17:40 19:49 19:55 WBC 14.6 H (4.8-10.8) X10*3/uL RBC 4.95 (4.20-5.50) X10*6/uL Hgb 14.0 (12.0-16.0) g/dl Hct 41.6 (37.0-47.0) % MCV 84.0 (80.0-98.0) fL MCH 28.3 (27.0-33.0) pg MCHC 33.7 (31.0-35.0) g/dl RDW 14.6 (11.0-16.0) % Plt Count 338 (160-400) X10*3/uL MPV 10.3 (9.4-12.3) fL Immature Gran % (Auto) 1.4 H (0.0-0.4) % Neut % (Auto) 63.4 (45-73) % Lymph % (Auto) 26.3 (20-40) % [place] % (Auto) 6.8 (2-11) % Eos % (Auto) 1.6 (0-4) % Baso % (Auto) 0.5 (0-2) % Lymph # (Auto) 3.8 (1.2-4.9) X10*3/uL [place] # (Auto) 1.0 (0.1-1.2) X10*3/uL Eos # (Auto) 0.2 (0.0-0.4) X10*3/uL Baso # (Auto) 0.1 (0.0-0.2) X10*3/uL Abs Immat Gran (auto) 0.20 H (0.00-0.03) X10*3/uL Absolute Neuts (auto) 9.3 H (2.0-8.3) x10*3/uL Absolute Nucleated RBC 0.000 (0.0-0.012) X10*3/uL Nucleated RBC % (auto) 0.0 (0.0-0.2) /100WBC Sodium (135-145) mmol/L Potassium (3.3-5.1) mmol/L Chloride (96-108) mmol/L Carbon Dioxide (22-29) mmol/L Anion Gap (12-20) BUN (9-16) mg/dL Creatinine (0.5-1.4) mg/dL Estim Creat Clear Calc Estimated GFR Random Glucose (60-115) mg/dL Calcium (8.4-10.2) mg/dL Magnesium (1.6-2.6) mg/dL Total Bilirubin (0.0-1.0) mg/dL AST (5-31) U/L ALT (0-31) U/L Alkaline Phosphatase (39-117) U/L Total Protein (6.5-8.0) g/dL Albumin (3.5-5.0) g/dL Lipase (8-78) U/L Beta HCG, Quant mIU/mL Urine Color RED Urine Appearance Cloudy Urine pH 7.0 (5.0-9.0) Ur Specific [place] <= 1.005 (1.005-1.025) Urine Protein 30 (1+) H (Neg-Trace) mg/dL Urine Glucose (UA) 500 H (Negative) mg/dL Urine Ketones Trace (Negative) mg/dL Urine Blood Large (3+) H (Negative) Urine Nitrite Positive H (Negative) Ur Leukocyte Esterase Small (1+) H (Negative) Urine RBC >20 H (0-2) /HPF Urine WBC 6-10 H (0-5) /HPF Ur Squamous Epith Cells 0-2 (0-2) /HPF Urine Bacteria 1+ (None Seen) Hyaline Casts 0-2 (0-2) /LPF COVID-19 (ALEJANDRO) (Negative) COVID-19 Clin Com Blood Type O Negative Antibody Screen NEGATIVE <Naomy Beckett MD - Last Filed: 02/12/23 23:35> Radiology Impression Radiologist Impression: My interpretation is in agreement with radiology's impression of the imaging study. <Naomy Beckett MD - Last Filed: 02/12/23 23:35> External Record Review External record reviewed: Outpatient record and Prior outpatient labs <Naomy Beckett MD - Last Filed: 02/12/23 23:35> Chronic Conditions Patient?s care impacted by: Diabetes <Naomy Beckett MD - Last Filed: 02/12/23 23:35> Discharge Plan Discharge Clinical Impression: Post-menopause bleeding, UTI (urinary tract infection) <EDWARD Ribeiro - Last Filed: 02/12/23 17:26> Patient Disposition: Home, Self-Care <EDWARD Ribeiro - Last Filed: 02/12/23 17:26> Instructions: Urinary Tract Infection in Women (DC) <EDWARD Ribeiro - Last Filed: 02/12/23 17:26> Additional Instructions: 1. Resume all home medications as prescribed. 2. Complete the entire course of antibiotics for your urinary tract infection. 3. Please follow-up on the referral you been provided below for gynecology. Return to the ER for any worsening symptoms. <EDWARD Ribeiro - Last Filed: 02/12/23 17:26> Prescriptions: New cefdinir 300 mg capsule 300 mg PO BID 5 Days Qty: 10 0RF No Action ferrous sulfate 325 mg (65 mg iron) tablet,delayed release (DR/EC) 325 mg PO DAILY 30 Days Qty: 30 1RF Tirosint-Michelle 200 mcg/mL solution 400 mcg PO DAILY 30 Days Qty: 60 11RF ferrous fumarate [Ferrocite] 324 mg (106 mg iron) tablet 324 mg PO BID lisinopril 2.5 mg tablet 2.5 mg PO DAILY metformin 500 mg tablet extended release 24 hr 1,000 mg PO BID montelukast [Singulair] 10 mg tablet 10 mg PO BEDTIME PNV cmb#95-ferrous fumarate-FA 28 mg iron- 800 mcg tablet 1 tab PO DAILY tramadol [Ultram] 50 mg tablet 50 mg PO Q8H PRN (Reason: severe pain) clonazepam [Klonopin] 1 mg tablet 1 mg PO TID PRN (Reason: Anxiety) trazodone 100 mg tablet 100 mg PO BEDTIME atorvastatin 40 mg tablet 40 mg PO DAILY acetaminophen 650 mg tablet extended release 650 mg PO Q8H PRN (Reason: Pain) albuterol sulfate 90 mcg/actuation HFA aerosol inhaler 2 puff inhalation ONCE PRN (Reason: Wheezing) haloperidol 5 mg tablet See Rx Instructions PO BID Rx Instructions: 1/2 tab am, 1/2 tab pm PO 2 times a day; benztropine 1 mg tablet 1 mg PO DAILY methocarbamol 750 mg tablet 750 mg PO TID Flovent HFA 110 mcg/actuation HFA aerosol inhaler 2 puff inhalation BID fluticasone propionate [Flonase Allergy Relief] 50 mcg/actuation spray,suspension 2 spray intranasal DAILY PRN (Reason: Allergy Symptoms) cetirizine [Zyrtec] 10 mg tablet 10 mg PO BEDTIME glipizide 5 mg tablet 5 mg PO BID alcohol swabs Pads, Medicated 0 pad topical DAILY pantoprazole 20 mg tablet,delayed release (DR/EC) 20 mg PO BID bupropion HCl 300 mg tablet extended release 24 hr 300 mg PO DAILY PRN aspirin 81 mg tablet,delayed release (DR/EC) 81 mg PO DAILY Jardiance 10 mg tablet 10 mg PO DAILY aripiprazole 20 mg tablet 20 mg PO DAILY bupropion HCl 150 mg tablet extended release 24 hr 150 mg PO DAILY PRN celecoxib [Celebrex] 200 mg capsule 200 mg PO BID 30 Days Qty: 60 3RF <EDWARD Ribeiro - Last Filed: 02/12/23 17:26> Referrals: Linda Murphy DO [Primary Care Provider] - Fercho Palmer MD [Physician] - (post=menopausal bleeding) <EDWARD Ribeiro - Last Filed: 02/12/23 17:26>
[2023-02-12 17:37] LABS: Alanine Aminotransferase 21 U/L (0-31); Albumin Level 4.4 g/dL (3.5-5.0); Alkaline Phosphatase 87 U/L (39-117); Anion Gap 15 (12-20); Aspartate Amino Transferase 20 U/L (5-31); Bilirubin Total 0.3 mg/dL (0.0-1.0); Blood Urea Nitrogen 13 mg/dL (9-16); Calcium 9.7 mg/dL (8.4-10.2); Carbon Dioxide 27 mmol/L (22-29); Chloride 102 mmol/L (96-108); Creatinine Clr Calc Pharmacy 62.6; Estimated Glomerular Filt Rate 42; Glucose Random 97 mg/dL (60-115); Lipase 66 U/L (8-78); Magnesium 1.9 mg/dL (1.6-2.6); Potassium 4.3 mmol/L (3.3-5.1); Sodium 140 mmol/L (135-145); Total Protein 7.3 g/dL (6.5-8.0)
[2023-02-12 17:42] LABS: HCG Quantitative < 2 mIU/mL
[2023-02-12 17:49] LABS: MANUAL DIFF FLAG NO
[2023-02-12 17:50] LABS: COVID-19 Test Negative (Negative); IDNOW Serial# 08D9AD1C
[2023-02-12 18:12] LABS: Basophils Absolute Auto 0.1 X10*3/uL (0.0-0.2); Basophils Percent Auto 0.5 % (0-2); Eosinophils Absolute Auto 0.2 X10*3/uL (0.0-0.4); Eosinophils Percent Auto 1.6 % (0-4); Hematocrit 41.6 % (37.0-47.0); Imm Gran Pct Auto 1.4 % (0.0-0.4); Lymphocytes Absolute Auto 3.8 X10*3/uL (1.2-4.9); Lymphocytes Percent Auto 26.3 % (20-40); Mean Corpuscular HGB Conc 33.7 g/dl (31.0-35.0); Mean Corpuscular Hemoglobin 28.3 pg (27.0-33.0); Mean Platelet Volume 10.3 fL (9.4-12.3); Monocytes Percent Auto 6.8 % (2-11); Neutrophils Absolute Auto 9.3 x10*3/uL (2.0-8.3); Neutrophils Percent Auto 63.4 % (45-73); Platelet Count 338 X10*3/uL (160-400); Red Blood Count 4.95 X10*6/uL (4.20-5.50); Red Cell Distribution Width 14.6 % (11.0-16.0); White Blood Count 14.6 X10*3/uL (4.8-10.8)
--- NOTE | 2023-02-12 19:58 | MHC.EDTECH ---
pt type and screen and urine sample collected and sent to lab ,ed charles said pt could eat ,so pt had ham sandwich and orange juice .
[2023-02-12 20:08] LABS: Appearance Urine Cloudy; Color Urine RED; Glucose Urine UA 500 mg/dL (Negative); Leukocyte Esterase Urine Small (1+) (Negative); Nitrite Urine Positive (Negative); Specific Gravity - Urine <= 1.005 (1.005-1.025); UMIC TRIGGER UACC YES; Urine Blood Large (3+) (Negative); Urine Ketones Trace mg/dL (Negative); Urine Protein 30 (1+) mg/dL (Neg-Trace)
[2023-02-12 20:29] LABS: Bacteria Urine 1+ (None Seen); Hyaline Casts Urine 0-2 /LPF (0-2); RBC Urine >20 /HPF (0-2); Squamous Epithelial Cell Urine 0-2 /HPF (0-2); UACC Culture Trigger YES
[2023-02-12 22:04] VITALS: BP 107/58; PULSE 79; RESP 16; TEMP 36.9
--- NOTE | 2023-02-12 23:00 | PC.NURSE ---
pt arrived to the main ed room 9. orders from the waiting room ordered prior to arrival to her bed.
[2023-02-13] VITALS: BP 149/91; PULSE 86; RESP 16; TEMP 36.6; O2SAT 96
[2023-02-13] MEDS: Amoxicillin/Potassium Clav 875 MG TABLET PO (00:07)
--- NOTE | 2023-02-13 00:12 | PC.NURSE ---
per dr palafox no ivf needed and pt is ready for discharge.
== END 2023-02-13 00:14 | disposition home or self-care (01) ==
PROVIDERS: Physician Assistant; Emergency Provider Student in an Organized Health Care Education/Training Program; PCP Family Medicine
DX: N95.0 Postmenopausal bleeding (principal); N39.0 Urinary tract infection, site not specified; Z20.822 Contact with and (suspected) exposure to COVID-19; E11.9 Type 2 diabetes mellitus without complications; E78.5 Hyperlipidemia, unspecified; D50.9 Iron deficiency anemia, unspecified; F12.90 Cannabis use, unspecified, uncomplicated; E66.9 Obesity, unspecified; Z68.33 Body mass index [BMI] 33.0-33.9, adult; Z87.891 Personal history of nicotine dependence; Z85.850 Personal history of malignant neoplasm of thyroid; Z79.899 Other long term (current) drug therapy; Z79.02 Long term (current) use of antithrombotics/antiplatelets; Z79.82 Long term (current) use of aspirin
CPT/HCPCS: 36415; 76830; 76856; 80053; 81001; 81003; 83690; 83735; 84702; 85025; 86850; 86900; 86901; 87086; 87635; 93975; 99283; 99284

== ENCOUNTER 2023-04-04 14:53 | Outpatient (REF) | payer OTHER, SELFPAY ==
[2023-04-04 16:52] LABS: Free T4 (Free Thyroxine) 1.03 ng/dL (0.71-1.85); Vitamin D 25-OH Total 60.1 ng/mL (>30)
[2023-04-10 20:03] LABS: Thyroglobulin Antibody <1 IU/mL (<=1); Thyroglobulin Level 0.3 ng/mL
== END 2023-04-04 14:54 | disposition home or self-care (01) ==
LOC: HO.LAB 14:53
PROVIDERS: PCP Family Medicine; Visit Provider Internal Medicine
DX: E89.0 Postprocedural hypothyroidism (principal); E55.9 Vitamin D deficiency, unspecified; Z85.850 Personal history of malignant neoplasm of thyroid
CPT/HCPCS: 36415; 82306; 84432; 84439; 84443; 86800; 99212

== ENCOUNTER 2023-05-06 15:19 | Outpatient (REF) | payer OTHER, SELFPAY ==
--- NOTE | ~2023-05-06 | XR_ITS ---
EXAMINATION: XR KNEE, RIGHT CLINICAL INFORMATION: Chronic right knee pain COMPARISON: 09/24/2022 TECHNIQUE: Four views of the right knee. FINDINGS: Tiny medial and posterior superior patellar spurs. Joint effusion. Joint spaces are preserved. XR/XR knee RT 3V IMPRESSION: Minimal degenerative changes. Joint effusion.
--- NOTE | ~2023-05-06 | US_ITS ---
EXAMINATION: US VENOUS ULTRASOUND WITH DOPPLER LOWER EXTREMITY, RIGHT CLINICAL INFORMATION: Right-sided thigh pain COMPARISON: None available. TECHNIQUE: Ultrasound of the deep veins is performed from the hip to the calf with compression sonography and color and pulse Doppler assessment. Spectral analysis with color-flow imaging is performed. FINDINGS: There is normal venous compression and respiratory variation and augmented flow. The visualized common femoral vein, superficial femoral vein, profunda femoral vein, popliteal vein, and the trifurcation region shows no evidence of deep venous thrombosis. There is no significant popliteal fossa cyst. If the patient's symptoms persist, followup ultrasound in 5 days 7 days might be of value to exclude proximal propagation from a non-visualized calf vein. US/US venous duplex LE RT IMPRESSION: No DVT demonstrated in the right lower extremity.
== END 2023-05-06 15:20 | disposition home or self-care (01) ==
LOC: HO.US 15:19
PROVIDERS: Visit Provider Emergency Medicine
DX: M79.651 Pain in right thigh (principal)
CPT/HCPCS: 73562; 93971

== ENCOUNTER 2023-07-10 09:01 | Outpatient (REF) | payer OTHER, SELFPAY | END 2023-07-10 09:02 | disposition home or self-care (01) | LOC: HO.HOSX 09:01 | PROVIDERS: Visit Provider Physician Assistant | DX: Z13.89 Encounter for screening for other disorder (principal) ==

== ENCOUNTER 2023-08-02 13:21 | Outpatient (AMB) | payer OTHER, SELFPAY ==
[2023-08-02 13:25] VITALS: BP 106/60; BMI 32.5
--- NOTE | 2023-08-02 13:25 | A.OFFVIS_ITS ---
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 Scribed for AMARI Peng by Shirin Vidal medical technologist blood bank, on 08/02/2023 at 1:45 pm EST. Vacation Sales Advisor Required: No Information Interpreted: non-clinical & clinical Engineer Conductor: Engineer Conductor Present (Heidi Zavala WIN) Accompanied by: Daughter Allergies acetaminophen [Percocet] Allergy (Unknown, Verified 08/02/23 13:32) Stomach Cramps. oxycodone [Percocet] Allergy (Unknown, Verified 08/02/23 13:32) stomach pain SEASONAL ALLERGIES Allergy (Unknown, Uncoded 08/02/23 13:32) UNKNOWN From PERCOCET Adverse Reaction (Unknown, Uncoded 08/02/23 13:32) CRAMPS Post menopausal: Yes HPI HPI Comments History of Present Illness Details She is a postmenopausal woman presenting for annual exam with daughter Juancho. Patient admits she tries to eat a healthy diet including Calcium and Vitamin D. She stays active with exercise. Currently sexually active. Complains of vaginal dryness. Reports hx of bleeding episodes lasting 3 weeks, stopped for 11 months then returned, and had a EMB in the past; she reports very painful. Denies vaginal itching. STD screening discussed, does not feel she needs one due to 30 yr. relationship. Denies family hx of colon and ovarian cancer. Last pap smear 05/22/22. Last mammogram unknown. UTD on colonoscopy. [facility] Medical History Uterine fibroid DANIEL (obstructive sleep apnea) High cholesterol Cervical cancer Schizoaffective disorder Bipolar disorder COPD (chronic obstructive pulmonary disease) Pancreatitis Type 2 diabetes mellitus JESICA positive Vitamin D deficiency Postoperative hypothyroidism History of thyroid cancer Morbid obesity Sacroiliitis Multinodular goiter HLD (hyperlipidemia) COPD (chronic obstructive pulmonary disease) T2DM (type 2 diabetes mellitus) GERD (gastroesophageal reflux disease) Bipolar 1 disorder Hypercalcemia Goiter Hypothyroidism Surgical History Hx of total thyroidectomy Hx of tubal ligation Hx of cholecystectomy Family History Father Bipolar 1 disorder Mother Diabetes mellitus Hypertension Hyperlipidemia COPD (chronic obstructive pulmonary disease) Paternal Aunt Breast cancer Social History Household Members: Spouse and Children Housing: Apartment Alcohol intake: never Patient Tobacco Use Status: Former Tobacco user Tobacco use type: Cigarette Cigarettes Per Day: 3 Substance Use Type: Marijuana service: No Current occupational status: other 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: Yes (Stress) Female Reproductive History Menstrual Age of Menarche: 15 Total pregnancies: 5 Full term: 4 Number of Living Children: 4 Ab spontaneous: 1 Date of last pap smear: 05/22/22 Physical Exam Vital Signs: Last Vital Signs BP 106/60 08/02/23 13:25 BMI result Body Mass Index 32.5 Const General: cooperative, healthy appearing, no acute distress, well developed and alert Orientation/consciousness: patient oriented x3 HEENT Head: Yes normal to inspection Eyes General: appearance normal, both eyes and all related structures Neck Neck: Yes normal visual inspection Thyroid: Thyroid normal Chest Chest palpation & inspection: normal inspection of the chest Breast/axilla inspection: normal inspection of the breasts (no puckering, dimpling, peau de orange, retraction, discharge, masses) Breast/axilla palpation: normal palpation of the breasts Resp Effort & Inspection: normal respiratory effort GI Inspection: Yes normal to inspection Palpation (GI): Soft to palpation (to palpation) Rectal Exam - Female: deferred General: Yes bladder normal to inspection External Female Exam: normal external appearance and normal appearance of the urethra Speculum Exam - Vagina: normal appearance of the vagina, normal palpation and abnormal vaginal discharge white (thick, clumpy) Speculum Exam - Cervix: normal appearance of the cervix and normal palpation Bimanual exam- vagina & uterus: normal palpation and normal palpation Bimanual Exam- Adnexa, other: normal adnexae and no masses Skin General skin exam: no rashes or lesions noted Neuro General: patient oriented x3 Cognition (Neuro): normal cognition Extrem General: Yes normal to inspection Psych Attitude: cooperative Thought process: Normal thought process present Results Reviewed Results Reviewed: EXAMINATION: 07/27/21 US PELVIS CLINICAL INFORMATION: Pelvic pain COMPARISON: CT pelvis from 10/23/2019. Ultrasound pelvis from 11/19/2019. TECHNIQUE: Ultrasound of the pelvis is performed using both transabdominal and transvaginal transducers along with color Doppler. Transvaginal imaging is performed due to inadequate visualization transabdominally. FINDINGS: Uterus: The uterus is anteverted and anteflexed. It measures approximately 9.9 x 4.4 x 4.8 cm (cervix to fundus x AP x transverse dimensions). The endometrium has normal homogeneous echotexture and measures up to 1.1 cm AP. No evidence of endometrial polyp. 0.9 x 1 x 0.9 cm fibroid of heterogeneous, predominantly hyperechoic echotexture is present in the anterior uterine body. A small 0.9 x 0.4 0.8 cm hypoechoic structure in the lower posterior uterine body might represent a degenerated leiomyoma. No suspicious uterine lesion. Adnexa: The right ovary is obscured by bowel on the transvaginal images. On the transabdominal images, the right ovary has normal echotexture and measures 2.7 x 1.5 x 2.3 cm, volume of 4.9 mL. No ovarian mass. The left ovary measures 2.6 x 2.3 x 2.7 cm, volume of 8.5 mL. A 2 x 1.8 x 1.6 cm simple cyst is present within the left ovary. Previously, simple cyst measuring up to 2.8 cm was observed in the left ovary on 11/19/2019. This cyst is almost certainly benign. No follow-up imaging is recommended for an asymptomatic ovarian cyst. Free fluid: None detected. US/US pelvic and transvaginal IMPRESSION: * Small uterine leiomyomas. * Simple cyst of the left ovary has decreased in size compared to 11/19/2019. No suspicious ovarian lesion EXAMINATION: US PELVIS AND TRANSVAGINAL ULTRASOUND PELVIC OVARIAN DOPPLER CLINICAL INFORMATION: Vaginal bleeding. Pelvic pain. COMPARISON: CT abdomen/pelvis from 01/25/2022. TECHNIQUE: Sonographic imaging of the pelvis performed using transabdominal and transvaginal transducers. FINDINGS: UTERUS AND CERVIX The anteflexed, anteverted uterus measures approximately 8.5 x 4.8 x 5 cm (fsgrus-px-[id number] x AP x transverse dimension). 1.5 x 1 x 0.9 cm focus of heterogeneous echotexture, consistent with leiomyoma, of the right uterine body. The cervix is normal. The endometrium has normal echotexture and measures up to 0.6 cm AP. ADNEXA: The right ovary is 1.2 x 0.7 x 0.9 cm and left ovary 4.2 x 3 x 3.2 cm. The left ovary is enlarged due to presence of a 3.7 x 2.8 x 2.9 cm simple cyst. This is almost certainly benign. No follow-up imaging recommended, if asymptomatic. Color Doppler images with spectral waveforms show presence of normal arterial and venous flow within each ovary. FREE FLUID: Trace pelvic free fluid is noted. US/US pelvic and transvaginal IMPRESSION: * The endometrium is normal. No endometrial polyp or submucosal leiomyoma. No specific source of vaginal bleeding is identified. * 1.5 cm intramural leiomyoma of the right uterine body. * 3.7 cm simple cyst of the left ovary. This is almost certainly benign. No suspicious ovarian lesion or ovarian torsion. Assessment & Plan Assessment & Plan (1) Encounter for well woman exam: Code(s): Z01.419 - Encounter for gynecological examination (general) (routine) without abnormal findings Plan: Discussed: Current recommendations for pap smears per ASCCP guidelines. Breast awareness and periodic self breast exams. Encouraged yearly mammograms. Mammogram ordered. Maintaining a healthy lifestyle including a well balanced diet including Calcium and Vitamin D and routine exercise. Contact office with any PMB. All of her questions and concerns were addressed to the best of my ability. RTO in 1 year for AG. (2) Vaginal dryness: Code(s): N89.8 - Other specified noninflammatory disorders of vagina Plan: Recommend Replens, KY jelly, Astroglide or coconut oil for vaginal dryness. (3) Uterine fibroid: Code(s): D25.9 - Leiomyoma of uterus, unspecified Plan: Leiomyoma: common pelvic neoplasm. Differential diagnosis-may include leiomyosarcoma which is a rare uterine sarcoma 3-7/100,000, difficult to distinguish from fibroids on ultrasound from uterine sarcoma's. Unlikely any single test will have a highly positive predictive value. Hysterectomy is not recommended for sole purpose of excluding malignant neoplasm. Report any PMB/AUB, pelvic pressure, bloating, or pain. Consult for surgical exploration verses expectant management offered. Expectant management follow up yearly for stability. (4) Abnormal uterine bleeding (AUB): Code(s): N93.9 - Abnormal uterine and vaginal bleeding, unspecified Plan: Discussed EMB. The EMB purpose was explained to rule out atypia, hyperplasia and uterine cancer. Reviewed procedure and instructed to take ibuprofen with food 1 hour prior to procedure. Go to ER with any prolonged or heavy bleeding. All of her questions and concerns were addressed to the best of my ability and shared decision making: for EMBx. She is agreeable to plan of care. Return in 2 weeks for test results and EMBX. Orders: Orders MM tomosynthesis screening BI Today Z12.31 - Encounter for screening mammogram for malignant neoplasm of breast Bacterial Vaginosis Panel Today N93.9 - Abnormal uterine and vaginal bleeding, unspecified Coding Level of Care Code Est Pt Prev Care 40-64y(69997) Diagnoses Encounter for well woman exam Z01.419 Vaginal dryness N89.8 Uterine fibroid D25.9 Abnormal uterine bleeding (AUB) N93.9
== END 2023-08-02 14:16 | disposition home or self-care (01) ==
PROVIDERS: PCP Family Medicine; Visit Provider Advanced Practice Midwife
DX: Z01.419 Encounter for gynecological examination (general) (routine) without abnormal findings (principal); N89.8 Other specified noninflammatory disorders of vagina; D25.9 Leiomyoma of uterus, unspecified; N93.9 Abnormal uterine and vaginal bleeding, unspecified
CPT/HCPCS: 99396

== ENCOUNTER 2023-08-02 13:21 | Outpatient (REF) | payer OTHER, SELFPAY ==
[2023-08-04 11:20] LABS: BV Int Neg Control Negative (Negative); BV Int Pos Control Positive (Positive)
== END 2023-08-02 13:22 | disposition home or self-care (01) ==
LOC: HO.LNP 13:21
PROVIDERS: PCP Family Medicine; Visit Provider Advanced Practice Midwife
DX: Z01.419 Encounter for gynecological examination (general) (routine) without abnormal findings (principal); N89.8 Other specified noninflammatory disorders of vagina; N93.9 Abnormal uterine and vaginal bleeding, unspecified; D25.9 Leiomyoma of uterus, unspecified
CPT/HCPCS: 87480; 87510; 87660

== ENCOUNTER 2023-08-26 14:04 | Outpatient (REF) | payer OTHER, SELFPAY ==
[2023-08-26 14:49] LABS: MANUAL DIFF FLAG NO
[2023-08-26 15:05] LABS: Basophils Percent Auto 0.3 % (0-2); Eosinophils Absolute Auto 0.1 X10*3/uL (0.0-0.4); Eosinophils Percent Auto 1.3 % (0-4); Hematocrit 39.9 % (37.0-47.0); Hemoglobin 13.1 g/dl (12.0-16.0); Imm Gran Abs Auto 0.03 X10*3/uL (0.00-0.03); Imm Gran Pct Auto 0.3 % (0.0-0.4); Lymphocytes Absolute Auto 2.6 X10*3/uL (1.2-4.9); Lymphocytes Percent Auto 26.3 % (20-40); Mean Corpuscular HGB Conc 32.8 g/dl (31.0-35.0); Mean Corpuscular Hemoglobin 27.6 pg (27.0-33.0); Mean Platelet Volume 9.9 fL (9.4-12.3); Monocytes Absolute Auto 0.6 X10*3/uL (0.1-1.2); Monocytes Percent Auto 6.2 % (2-11); Neutrophils Absolute Auto 6.6 x10*3/uL (2.0-8.3); Neutrophils Percent Auto 65.6 % (45-73); Platelet Count 345 X10*3/uL (160-400); Red Blood Count 4.75 X10*6/uL (4.20-5.50); Red Cell Distribution Width 13.2 % (11.0-16.0)
[2023-08-26 15:53] LABS: Estimated Average Glucose 169 mg/dL; Hemoglobin A1c % 7.5 % (<6.0)
[2023-08-26 16:01] LABS: Alanine Aminotransferase 37 U/L (0-31); Albumin Level 4.4 g/dL (3.5-5.0); Alkaline Phosphatase 92 U/L (39-117); Anion Gap 18 (12-20); Aspartate Amino Transferase 22 U/L (5-31); Bilirubin Direct 0.1 mg/dL (0.0-0.5); Bilirubin Total 0.3 mg/dL (0.0-1.0); Blood Urea Nitrogen 8 mg/dL (9-16); Calcium 10.3 mg/dL (8.4-10.2); Carbon Dioxide 26 mmol/L (22-29); Chloride 101 mmol/L (96-108); Cholesterol 153 mg/dL (<200); Estimated Glomerular Filt Rate > 60; Glucose Random 145 mg/dL (60-115); HDL Cholesterol 38 mg/dL (>40); LDL Cholesterol Calculated 82 mg/dL (<100); Potassium 3.8 mmol/L (3.3-5.1); Sodium 141 mmol/L (135-145); Triglycerides 167 mg/dL (<150)
[2023-08-26 16:07] LABS: Free T4 (Free Thyroxine) 1.41 ng/dL (0.71-1.85); Thyroid Stimulating Hormone 0.05 uIU/mL (0.32-4.0); Vitamin D 25-OH Total 59.2 ng/mL (>30)
[2023-08-27 07:40] LABS: HIV AB/AG Nonreactive (Nonreactive); HIV Num 1 0.06 S/CO (0.00-0.99); ~HepC Num1 0.25 S/CO (0.00-0.79); ~Hepatitis C Antibody Nonreactive (Nonreactive)
[2023-08-27 13:18] LABS: Alpha Fetoprotein 2.8 ng/mL
[2023-08-28 22:24] LABS: RPR Rapid Plasma Reagin NON-REACTIVE (NON-REACTIVE)
== END 2023-08-26 14:05 | disposition home or self-care (01) ==
LOC: HO.LAB 14:04
PROVIDERS: PCP Family Medicine; Visit Provider Family Medicine
DX: E11.29 Type 2 diabetes mellitus with other diabetic kidney complication (principal); R80.9 Proteinuria, unspecified; E78.5 Hyperlipidemia, unspecified; J44.9 Chronic obstructive pulmonary disease, unspecified
CPT/HCPCS: 36415; 80048; 80061; 80076; 82105; 82306; 83036; 84439; 84443; 85025; 86592; 86803; 87389

== ENCOUNTER 2023-09-13 13:04 | Outpatient (REF) | payer OTHER, SELFPAY ==
--- NOTE | 2023-09-13 13:10 | EMG_ITS ---
Chief complaint: Right leg pain, particularly behind the knee. Denies numbness on feet. History of diabetes. Reason for referral: Evaluate for neuropathy versus radiculopathy Referred by: Dr. Linda Murphy Procedure done: Right lower extremity NCS/EMG Precautions and/or limitations: None The limb temperature was monitored continuously and remained between 32-36 degrees C during the performance of the NCS. Nerve Conduction Studies Anti Sensory Summary Table ?Stim Site NR Onset (ms) Norm Onset (ms) Peak (ms) Norm Peak (ms) O-P Amp (?V) Norm O-P Amp Site1 Site2 Delta-0 (ms) Dist (cm) Benjy (m/s) Norm Benjy (m/s) Left Sural Anti Sensory (Lat Mall) Calf ? 3.0 3.5 <4.0 11.3 >5.0 Calf Lat Mall 3.0 14.0 47 Right Sural Anti Sensory (Lat Mall) Calf ? 2.8 3.8 <4.0 5.0 >5.0 Calf Lat Mall 2.8 14.0 50 Site 2 ? 2.7 3.4 3.2 Motor Summary Table ?Stim Site NR Onset (ms) Norm Onset (ms) O-P Amp (mV) Norm O-P Amp iAmp (mV) Amp (1st) (%) Site1 Site2 Delta-0 (ms) Dist (cm) Benjy (m/s) Norm Benjy (m/s) Left Peroneal Motor (Ext Dig Brev) Ankle ? 3.6 <4.0 7.1 >2.5 7.8 100.0 Ankle Ext Dig Brev 3.6 0.0 B Fib ? 10.2 7.9 8.6 111.3 B Fib Ankle 6.6 33.0 50 >40 Poplt ? 10.9 8.5 9.8 119.7 Poplt B Fib 0.7 5.0 71 >40 Right Peroneal Motor (Ext Dig Brev) Ankle ? 2.9 <4.0 2.1 >2.5 2.5 100.0 Ankle Ext Dig Brev 2.9 0.0 B Fib ? 11.1 1.8 2.2 85.7 B Fib Ankle 8.2 34.0 41 >40 Poplt ? 12.0 2.5 3.4 119.0 Poplt B Fib 0.9 3.0 33 >40 Right Tibial Motor (Abd Laboy Brev) Ankle ? 3.0 <5 10.0 >2.5 13.7 100.0 Ankle Abd Laboy Brev 3.0 0.0 Knee ? 11.7 10.7 13.6 107.0 Knee Ankle 8.7 44.0 51 >40 EMG ?Side Muscle Nerve Root Ins Act Fibs Psw Amp Dur Poly Recrt Int Pat Comment Right AbdHallucis MedPlantar S1-2 Nml Nml Nml Nml Nml 0 Nml Complete Right AntTibialis Dp Br Peron L4-5 Nml Nml Nml Nml Nml 0 Nml Complete Right PostTibialis Tibial L5, S1 Nml Nml Nml Nml Nml 0 Nml Complete Right MedGastroc Tibial S1-2 Nml Nml Nml Nml Nml 0 Nml Complete Right VastusMed Femoral L2-4 Nml Nml Nml Nml Nml 0 Nml Complete Paraspinal EMG ?Side Muscle Nerve Root Ins Act Fibs Psw Comment Right Lumbar Upper Rami Nml Nml Nml Right Lumbar Mid Rami Nml Nml Nml Right Lumbar Lower Rami Nml Nml Nml FINDINGS: Right peroneal nerve showed normal distal latency, small amplitude and slow conduction velocity across the fibular. Comparisons done to left side. All other nerves tested were within normal. Concentric needle EMG was performed in selected muscles of the right lower extremity and lumbar paraspinals. Study did not reveal signs of electric abnormalities as shown in the table below. IMPRESSION: 1. This is an abnormal study. 2. 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 3. There is no electrodiagnostic evidence for tibial neuropathy. lumbosacral plexopathy, lumbar radiculopathy, or peripheral neuropathy. Thank you for your kind referral. Tiffanie Valentino MD, JOSE Board Certified, [place] Board of [employer] Medicine and Rehabilitation (ABPMR) Board Certified, [place] Board of Electrodiagnostic Medicine (ABEM) [place] [id number] [facility]
== END 2023-09-13 13:05 | disposition home or self-care (01) ==
LOC: HO.NEURO 13:04
PROVIDERS: PCP Family Medicine; Visit Provider Family Medicine
DX: M79.604 Pain in right leg (principal)
CPT/HCPCS: 95886; 95909

== ENCOUNTER → 2023-09-13 13:10 | Outpatient (BNV) | payer OTHER, SELFPAY | PROVIDERS: PCP Family Medicine; Visit Provider Physical Medicine & Rehabilitation | DX: G57.31 Lesion of lateral popliteal nerve, right lower limb (principal) | CPT/HCPCS: 95886; 95909 ==

== ENCOUNTER 2023-09-24 12:09 | Outpatient (AMB) | payer OTHER, SELFPAY ==
--- NOTE | 2023-09-24 12:27 | MHC.OFFVIS ---
Intake Vital Signs 09/24/23 12:29 Height 5 ft 8 in Weight 210 lb BMI 31.9 BP 115/59 L Blood Pressure Location Lt brachial Position Sitting Pulse 96 Intake Visit Reasons: Colonoscopy Screeniing Intake Note: Patient 1st pre colonoscopy screening. Patient cc: some diarrhea on and off, denies any other GI issues. Gis Physical Scientist Required: No Accompanied by: Daughter Allergies acetaminophen [Percocet] Allergy (Unknown, Verified 09/24/23 12:27) Stomach Cramps. oxycodone [Percocet] Allergy (Unknown, Verified 09/24/23 12:27) stomach pain SEASONAL ALLERGIES Allergy (Unknown, Uncoded 08/02/23 13:32) UNKNOWN From PERCOCET Adverse Reaction (Unknown, Uncoded 08/02/23 13:32) CRAMPS Medication List - Last Reconciled 09/24/23 by Tamara Medina PA-C acetaminophen ER 650 mg PO Q8H PRN albuterol sulfate 90 mcg/actuation 2 puffs inhalation ONCE PRN alcohol swabs 0 pad topical DAILY aripiprazole 20 mg PO DAILY aspirin 81 mg PO DAILY atorvastatin 40 mg PO DAILY benztropine 1 mg PO DAILY bupropion HCl 300 mg PO DAILY PRN bupropion HCl 150 mg PO DAILY PRN cefdinir 300 mg PO BID 5 days cetirizine (Zyrtec) 10 mg PO BEDTIME clonazepam (Klonopin) 1 mg PO BID PRN ferrous sulfate 325 mg PO DAILY 30 days fluticasone propionate 110 mcg/actuation (Flovent HFA) 2 puffs inhalation BID fluticasone propionate 50 mcg/actuation (Flonase Allergy Relief) 2 sprays intranasal DAILY PRN glipizide 5 mg PO BID haloperidol 1/2 tab am, 1/2 tab pm PO 2 times a day; lisinopril 2.5 mg PO DAILY metformin ER 1,000 mg PO BID methocarbamol 750 mg PO TID metronidazole 500 mg PO BID 7 days montelukast (Singulair) 10 mg PO BEDTIME pantoprazole 20 mg PO BID Tirosint-Michelle (levothyroxine) 200 mcg PO DAILY NS Tirosint-Michelle (levothyroxine) 150 mcg PO DAILY NS tramadol (Ultram) 50 mg PO Q8H PRN HPI HPI Comments History of Present Illness Details A 53 y/o female referred for screening colonoscopy- she says she has no GI concerns She has a normal bowel pattern Appetite is good- she says DM is not great- she has avoided- sugar She is following with distribution manager going to have the surgery/biopsy coming up soon Sleep apnea, however she uses O2 2 L at nighttime She does get short of breath on exertion She has no nausea, vomiting hematemesis, hematochezia fever chills Her adult daughter accompanies her [facility] Medical History Uterine fibroid DANIEL (obstructive sleep apnea) High cholesterol Cervical cancer Schizoaffective disorder Bipolar disorder COPD (chronic obstructive pulmonary disease) Pancreatitis Type 2 diabetes mellitus JESICA positive Vitamin D deficiency Postoperative hypothyroidism History of thyroid cancer Morbid obesity Sacroiliitis Multinodular goiter HLD (hyperlipidemia) COPD (chronic obstructive pulmonary disease) T2DM (type 2 diabetes mellitus) GERD (gastroesophageal reflux disease) Bipolar 1 disorder Hypercalcemia Goiter Hypothyroidism Surgical History Hx of total thyroidectomy Hx of tubal ligation Hx of cholecystectomy Family History Father Bipolar 1 disorder Mother Diabetes mellitus Hypertension Hyperlipidemia COPD (chronic obstructive pulmonary disease) Paternal Aunt Breast cancer Social History Household Members: Spouse and Children Housing: Apartment Alcohol intake: never Patient Tobacco Use Status: Former Tobacco user Tobacco use type: Cigarette Cigarettes Per Day: 3 Substance Use Type: Marijuana service: No Current occupational status: other 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: Yes (Stress) Female Reproductive History Menstrual Age of Menarche: 15 Review of Systems Const All systems reviewed & are unremarkable except as noted in HPI and below Denies chills and Denies fever(s) ENT Denies dysphagia and Denies odynophagia Card Denies chest pain and Denies dyspnea Resp Denies dyspnea GI Denies abdominal pain, Denies bloating, Denies hematochezia, Denies change in bowel habits, Denies change in stool character, Denies constipation, Denies GI cramping, Denies dysphagia, Denies early satiety, Denies dyspepsia, Denies heartburn, Denies diarrhea, Denies loose stools, Denies nausea, Denies odynophagia and Denies vomiting Physical Exam Vital Signs: Last Vital Signs Pulse 96 09/24/23 12:29 BP 115/59 L 09/24/23 12:29 BMI result Body Mass Index 31.9 Const General: cooperative, healthy appearing, comfortable and no acute distress Orientation/consciousness: patient oriented x3 Limitations: no limitations Eyes Sclerae: sclerae normal Resp Effort & Inspection: normal respiratory effort and able to speak in complete sentences Auscultation: clear to auscultation bilaterally, no rales, no rhonchi and no wheezes Cardio Rate: regular rate Rhythm: regular rhythm Heart sounds: S1 normal heart sound present and S2 normal heart sound present GI Palpation (GI): Soft to palpation and nontender Auscultation: normal bowel sounds Skin General skin exam: no rashes or lesions noted Neuro General: patient oriented x3 Extrem General: Yes full ROM Psych Appearance: grossly normal and well kempt Mental Status: mental status grossly normal Speech and movement: Normal speech and movement present and Clear speech present Affect: normal affect Attitude: cooperative Thought process: Normal thought process present Thought content: Normal thought content present Insight: Good insight present (Psych) Assessment & Plan Assessment & Plan (1) DANIEL (obstructive sleep apnea): Code(s): G47.33 - Obstructive sleep apnea (adult) (pediatric) Plan: O2 at 2 L q.h.s. (2) Incomplete right bundle branch block: Code(s): I45.10 - Unspecified right bundle-branch block (3) Encounter for screening colonoscopy: Comment: 53-year-old female multiple comorbidities-DANIEL- O2@HS- SOBOE Discuss colonoscopy, gold standard air versus Cologuard, 13% follows positives, as well as. Negative if positive would recommend colonoscopy Code(s): Z12.11 - Encounter for screening for malignant neoplasm of colon Plan: Cologuard-must be authorized by insurance (4) Abnormal uterine bleeding (AUB): Comment: Likely source of anemia, iron supplements, normal H&H Code(s): N93.9 - Abnormal uterine and vaginal bleeding, unspecified Plan: Continue follow-up distribution manager Plan Cologuard, if positive recommend colonoscopy Patient where she will call for results 2 weeks after submitting sample Orders: Referrals Cologuard Test G47.33 - Obstructive sleep apnea (adult) (pediatric), I45.10 - Unspecified right bundle-branch block, Z12.11 - Encounter for screening for malignant neoplasm of colon Patient Instructions: Cologuard if positive recommend colonoscopy She will call 2 weeks after she submits sample for results Coding Level of Care Code New Pt Level 3 (57581) Diagnoses DANIEL (obstructive sleep apnea) G47.33 Incomplete right bundle branch block I45.10 Encounter for screening colonoscopy Z12.11 Abnormal uterine bleeding (AUB) N93.9 Time Spent (min) 30
[2023-09-24 12:29] VITALS: BP 115/59; PULSE 96; BMI 31.9
== END 2023-09-24 13:43 | disposition home or self-care (01) ==
PROVIDERS: PCP Family Medicine; Visit Provider Physician Assistant
DX: G47.33 Obstructive sleep apnea (adult) (pediatric) (principal); I45.10 Unspecified right bundle-branch block; Z12.11 Encounter for screening for malignant neoplasm of colon; N93.9 Abnormal uterine and vaginal bleeding, unspecified
CPT/HCPCS: 99203

== ENCOUNTER → 2023-09-24 12:09 | Outpatient (BNVA) | payer OTHER, SELFPAY | PROVIDERS: PCP Family Medicine; Visit Provider Physician Assistant | DX: Z12.11 Encounter for screening for malignant neoplasm of colon (principal); G47.33 Obstructive sleep apnea (adult) (pediatric); N93.9 Abnormal uterine and vaginal bleeding, unspecified; I45.10 Unspecified right bundle-branch block | CPT/HCPCS: 99202 ==

== ENCOUNTER 2023-10-07 12:09 | Outpatient (REF) | payer OTHER, SELFPAY ==
--- NOTE | ~2023-10-07 | XR_ITS ---
EXAMINATION: XR CHEST CLINICAL INFORMATION: Shortness of breath COMPARISON: December 2020 TECHNIQUE: 2 views of the chest were obtained. FINDINGS: There is questionable right hilar mass and increased interstitial markings bilaterally. Cardiomediastinal silhouette otherwise is normal. There is no pleural effusion XR/XR chest 2V IMPRESSION: Stable mass in the right hilum and prominent interstitial markings, correlate with CT scan.
== END 2023-10-07 12:10 | disposition home or self-care (01) ==
LOC: HO.XRAY 12:09
PROVIDERS: PCP Family Medicine; Visit Provider Nurse Practitioner Family
DX: R06.02 Shortness of breath (principal); R05.1 Acute cough
CPT/HCPCS: 71046

== ENCOUNTER 2023-12-11 10:20 | Outpatient (REF) | payer OTHER, SELFPAY ==
[2023-12-11 13:34] LABS: Thyroid Stimulating Hormone 6.65 uIU/mL (0.32-4.0)
[2023-12-12 14:07] LABS: BV Int Neg Control Negative (Negative); BV Int Pos Control Positive (Positive)
== END 2023-12-11 10:21 | disposition home or self-care (01) ==
LOC: HO.LAB 10:20
PROVIDERS: Absent Provider Internal Medicine Endocrinology, Diabetes & Metabolism; PCP Family Medicine; Visit Provider Advanced Practice Midwife
DX: N93.9 Abnormal uterine and vaginal bleeding, unspecified (principal); N89.8 Other specified noninflammatory disorders of vagina; E89.0 Postprocedural hypothyroidism
CPT/HCPCS: 36415; 58100; 81025; 84439; 84443; 87480; 87510; 87660; 88305

== ENCOUNTER 2023-12-11 10:20 | Outpatient (AMB) | payer OTHER, SELFPAY ==
[2023-12-11 10:52] VITALS: BP 108/66; BMI 31.9
--- NOTE | 2023-12-11 10:52 | A.OFFVIS_ITS ---
Intake Vital Signs 12/11/23 10:52 Height 5 ft 8 in Weight 210 lb BMI 31.9 BP 108/66 Intake Visit Reasons: EMB Stave Log Ripsaw Operator: Stave Log Ripsaw Operator Present (Mariaelena) Accompanied by: Daughter Allergies acetaminophen [Percocet] Allergy (Unknown, Verified 12/11/23 10:53) Stomach Cramps. oxycodone [Percocet] Allergy (Unknown, Verified 12/11/23 10:53) stomach pain SEASONAL ALLERGIES Allergy (Unknown, Uncoded 08/02/23 13:32) UNKNOWN From PERCOCET Adverse Reaction (Unknown, Uncoded 08/02/23 13:32) CRAMPS Is last menstrual period known: Yes Last menstrual period: 11/18/23 HPI HPI Comments History of Present Illness Details Patient is here today with her daughter Micki, for an EMB due to AUB. She reports her last bleeding episode was this month lasting 8 days prior to that she skipped 11 months and at that point had bled for 3 weeks. History of fibroid. She reports a recent episode of external itching which has now resolved. [facility] Medical History Uterine fibroid DANIEL (obstructive sleep apnea) High cholesterol Cervical cancer Schizoaffective disorder Bipolar disorder COPD (chronic obstructive pulmonary disease) Pancreatitis Type 2 diabetes mellitus JESICA positive Vitamin D deficiency Postoperative hypothyroidism History of thyroid cancer Morbid obesity Sacroiliitis Multinodular goiter HLD (hyperlipidemia) COPD (chronic obstructive pulmonary disease) T2DM (type 2 diabetes mellitus) GERD (gastroesophageal reflux disease) Bipolar 1 disorder Hypercalcemia Goiter Hypothyroidism Surgical History Hx of total thyroidectomy Hx of tubal ligation Hx of cholecystectomy Family History Father Bipolar 1 disorder Mother Diabetes mellitus Hypertension Hyperlipidemia COPD (chronic obstructive pulmonary disease) Paternal Aunt Breast cancer Sister Cervical cancer Social History Household Members: Spouse and Children Housing: Apartment Alcohol intake: never Patient Tobacco Use Status: Former Tobacco user Tobacco use type: Cigarette Cigarettes Per Day: 3 Substance Use Type: Marijuana service: No Current occupational status: other 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: Yes (Stress) Female Reproductive History Menstrual Age of Menarche: 15 Duration of menses: 8-10 days Date of last menstrual period: 11/18/23 Review of Systems Const All systems reviewed & are unremarkable except as noted in HPI and below Physical Exam Vital Signs: Last Vital Signs BP 108/66 12/11/23 10:52 BMI result Body Mass Index 31.9 Const General: cooperative, healthy appearing and no acute distress Orientation/consciousness: patient oriented x3 GI Inspection: Yes normal to inspection Palpation (GI): Soft to palpation and Other GI palpation findings present (Nontender) Rectal Exam - Female: visual inspection normal General: Yes bladder normal to palpation External Female Exam: normal appearance of the urethra Speculum Exam - Vagina: normal appearance of the vagina, normal palpation and abnormal vaginal discharge (With thickened clumpy) Speculum Exam - Cervix: normal appearance of the cervix, normal palpation and Other cervical findings present (Post LEEP appearance) Bimanual exam- vagina & uterus: normal bimanual exam, normal palpation, uterine size normal, bladder normal to palpation, normal palpation, uterine shape normal and non-tender Bimanual Exam- Adnexa, other: normal adnexae Neuro General: patient oriented x3 Office Procedures Endometrial Biopsy Details: The patient is here today for an endometrial biopsy due to AUB to rule out any pathology including atypical, hyperplasia or cancer cells of the uterus. She was counseled regarding anticipatory guidance for the procedure including the risks for pain, infection, bleeding, perforation, potential injury to the tissues may include the cervix, uterus, tubes, bladder and bowels. These injuries may include further treatment and evaluation including surgery, blood transfusions, antibiotics, hospitalizations and anesthesia. Permanent injury and scarring can occur. She was consented for the procedure, and the consent forms were signed. She is agreeable to have the procedure today. All questions were answered. Endometrial Biopsy Procedure: The patient was placed in the dorsal lithotomy position and a sterile speculum inserted. Using aseptic technique for the procedure. The cervix was cleansed with Betadine x 3 swabs. A single toothed tenaculum was placed on the cervix for stabilization and the uterus was sounded to 9 cm with a 4mm pipelle for multiple passes. Minimal bleeding was observed. The tissue sample was placed in formalin in a patient labeled container by staff assisting and sent to the pathology department for processing and interpret ation. The patient tolerate the procedure well and was in good condition when leaving the department. Endometrial Biopsy Post Procedure Care: Nothing in the vagina including: tampons, douching or intimacy until all the bleeding has subsided. There may be some post procedure bleeding for several days, this bleeding is usually light and may turn to a light brown or pink color. Mild cramps may occu rs. Nothing in the vaginal including: tampons, douching, or intimacy until all the bleeding has subsided. You may take an over the counter mild analgesic such as Tylenol or Advil (if no allergies) per the manufactures recommendation on dosing, frequency, and follow the directions completely. Call the office if any: fever (over 100.4), flu like symptoms, abdominal pain (worse than cramping), foul smelling, infected appearing vaginal discharge, or heavy bleeding. Return to the office in 2 weeks for results and plan of care. This note is constructed using voice recognition software. While every effort has been made to ensure accuracy, office clerk routine errors may have been included. [id number] Biopsy Results AMB Test Urine AMB Test Urine Negative Last Edit by WIN Benitez on 12/11/23 11:12 Results Reviewed Results Reviewed: Laboratory Last Values Tst Clinic Negative 12/11/23 11:06 Assessment & Plan Assessment & Plan (1) Abnormal uterine bleeding (AUB): Code(s): N93.9 - Abnormal uterine and vaginal bleeding, unspecified (2) Vaginal discharge: Code(s): N89.8 - Other specified noninflammatory disorders of vagina Plan Await BV results for plan of treatment. See procedures notes. Return to the office 1-2 weeks for results. Orders: Orders US pelvic and transvaginal Today D21.9 - Benign neoplasm of connective and other soft tissue, unspecified, N93.9 - Abnormal uterine and vaginal bleeding, unspecified AMB HCG Urine Test Today N93.9 - Abnormal uterine and vaginal bleeding, unspecified Bacterial Vaginosis Panel Today N89.8 - Other specified noninflammatory disorders of vagina Surgical Today N93.9 - Abnormal uterine and vaginal bleeding, unspecified Coding Level of Care Code Procedure Only Diagnoses Abnormal uterine bleeding (AUB) N93.9 Vaginal discharge N89.8 CPT Codes Endometrial Biopsy - CPT: 56529-[id number] Biopsy ([id number])
== END 2023-12-11 11:39 | disposition home or self-care (01) ==
PROVIDERS: PCP Family Medicine; Visit Provider Advanced Practice Midwife
DX: N93.9 Abnormal uterine and vaginal bleeding, unspecified (principal); N89.8 Other specified noninflammatory disorders of vagina
CPT/HCPCS: 58100

== ENCOUNTER 2024-01-27 07:31 | Outpatient (REF) | payer OTHER, SELFPAY ==
--- NOTE | ~2024-01-27 | CT_ITS ---
EXAMINATION: CT CHEST WITH CONTRAST CLINICAL INFORMATION: Question right hilar mass COMPARISON: Chest x-ray 10/07/2023 TECHNIQUE: Multidetector volumetric CT imaging of the chest was obtained after the administration of 65 mL of Omnipaque 350 intravenous contrast without immediate adverse reactions. Axial MIP volume rendering provided. Sagittal and coronal reformatted images were obtained. This CT examination was performed using dose optimization techniques as appropriate, variously including the following: *Automated exposure control *Adjustment of mA and/or kV according to patient size (this includes techniques or standardized protocols for targeted exams where dose is matched to indication/reason for exam; i.e. extremities or head) *Use of iterative reconstruction technique DLP: 182 mGy-cm FINDINGS: Central airways are patent. Lungs are well aerated. Mild emphysematous changes are present. 7 mm left lower lobe pulmonary nodule (image 101/210, series 5). A few other 1 to 3 mm pulmonary micronodules are scattered throughout the lungs. The heart is normal in size. Trace pericardial effusion. No appreciable coronary artery calcifications. A few mildly prominent but nonpathologically enlarged mediastinal lymph nodes are noted, for example a 9 mm lymph node anterior to the aortic arch. No gross hilar lymphadenopathy. Shotty bilateral axillary lymph nodes. Visualized portions of the upper abdomen are grossly unremarkable. Mild to moderate diffuse degenerative changes of the spine. CT/CT chest w IV con IMPRESSION: 1. Mild emphysema. 2. 7 mm left lower lobe pulmonary nodule. According to the UPDATED 2017 Fleischner Society recommendations, the advised follow-up imaging for multiple solid nodules, the largest measuring 6 mm or greater, is: LOW RISK PATIENT: CT at 3-6 months, then consider CT at 18-24 months. HIGH RISK PATIENT: CT at 3-6 months, then at 18-24 months.
[2024-01-27] MEDS: iohexoL 350 MG/ML 100 ML INFUS..BTL 65 ML IV (08:56)
[2024-01-28 07:35] LABS: Creatinine POC 0.9 mg/dL (0.5-1.4); GFR POC > 60
== END 2024-01-27 07:32 | disposition home or self-care (01) ==
LOC: HO.CT 07:31
PROVIDERS: PCP Family Medicine; Visit Provider Family Medicine
DX: R93.89 Abnormal findings on diagnostic imaging of other specified body structures (principal)
CPT/HCPCS: 71260; 82565; Q9967

== ENCOUNTER 2024-01-28 11:03 | Outpatient (REF) | payer OTHER, SELFPAY | END 2024-01-28 11:04 | disposition home or self-care (01) | LOC: HO.HHCL 11:03 | PROVIDERS: Visit Provider Family Medicine | DX: Z13.89 Encounter for screening for other disorder (principal) ==

== ENCOUNTER 2024-03-05 13:51 | Outpatient (REF) | payer OTHER, SELFPAY ==
[2024-03-05 16:53] LABS: Free T4 (Free Thyroxine) 0.83 ng/dL (0.71-1.85); Thyroid Stimulating Hormone 66.25 uIU/mL (0.32-4.0)
== END 2024-03-05 13:52 | disposition home or self-care (01) ==
LOC: HO.HHCL 13:51
PROVIDERS: Visit Provider Internal Medicine
DX: E89.0 Postprocedural hypothyroidism (principal)
CPT/HCPCS: 36415; 84439; 84443

== ENCOUNTER 2024-03-30 13:31 | Outpatient (AMB) | payer OTHER, SELFPAY ==
--- NOTE | 2024-03-30 13:35 | MHC.OFFVIS ---
Vital Signs 03/30/24 13:36 Height 5 ft 8 in Weight 214 lb 15.211 oz BMI 32.7 BP 122/62 Blood Pressure Location Lt brachial Position Sitting Pulse 103 H Pulse Source Pulse Oximeter Intake Visit Reasons: F/U Thyroid Cancer-CONFIRMED Intake Note: Patient presents today for Thyroid Cancer follow up, last seen by Dr. Silveira on 04/04/2023. Magnetic Resonance Technologist Required: No Accompanied by: Friend Allergies oxycodone [Percocet] Allergy (Intermediate, Verified 03/30/24 13:40) stomach pain SEASONAL ALLERGIES Allergy (Unknown, Uncoded 03/30/24 13:40) UNKNOWN Medication List - Last Reconciled 03/30/24 by Dillon Valdez MD acetaminophen ER 650 mg PO Q8H PRN albuterol sulfate 90 mcg/actuation 2 puffs inhalation ONCE PRN alcohol swabs 0 pad topical DAILY aripiprazole 20 mg PO DAILY aspirin 81 mg PO DAILY atorvastatin 40 mg PO DAILY benztropine 1 mg PO DAILY bisacodyl (Dulcolax (bisacodyl)) 20 mg (4 x 5 mg) PO ONCE 1 day bupropion HCl XL 300 mg PO DAILY bupropion HCl XL 150 mg PO DAILY cefdinir 300 mg PO BID 5 days cetirizine (Zyrtec) 10 mg PO BEDTIME clonazepam (Klonopin) 1 mg PO BID PRN ferrous sulfate 325 mg PO DAILY 30 days fluticasone propionate 110 mcg/actuation (Flovent HFA) 2 puffs inhalation BID fluticasone propionate 50 mcg/actuation (Flonase Allergy Relief) 2 sprays intranasal DAILY PRN glipizide 5 mg PO BID haloperidol 1/2 tab am, 1/2 tab pm PO 2 times a day; lisinopril 2.5 mg PO DAILY metformin ER 1,000 mg PO BID methocarbamol 750 mg PO TID metronidazole 500 mg PO BID 7 days montelukast (Singulair) 10 mg PO BEDTIME pantoprazole 20 mg PO BID polyethylene glycol 3350 (Miralax) 238 grams PO ONCE 1 day Tirosint-Michelle (levothyroxine) 400 mcg (2 mL) PO DAILY 1 month NS tramadol (Ultram) 50 mg PO Q8H PRN HPI Comments Details: 53 YO F with an extensive PMHx who is seen in F/U for thyroid cancer and postoperative hypothyroidism.. Patient last saw Dr. Silveira on 04/04/[address] of the neck 05/20/2020 which revealed thyromegaly with concern for a multinodular thyroid. There was displacement of the trachea to the R. She was also found to have an enlarged L level IB cervical lymph node. She was subsequently referred to Endocrinology. She had a large goiter with compressive symptoms and was referred to Dr. Combs for a total thyroidectomy. 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 There was no extrathyroidal extension, no angioinvasian, no lymphatic invasion, and margins were negative. No lymph nodes were examined. 1 parathyroid gland was also resected. This was staged as [id number]. She underwent I131 remnant ablation 10/16/2021with 31.7 mCi of I131. Post-treatment WBS revealed intense foci of uptake in the right upper and left lower thyroid bed. There was additional mild uptake in the region supero-lateral to the L thyroid bed. Otherwise uptake was physiologic. Postoperatively she was started on Levothyroxine 150 mcg PO daily. Labs revealed hypothyroidism so dose was increased to Levothyroxine 175 mcg PO daily. Labs continued to reveal hypothyroidism, so her dose was changed to levothyroxine 1225 mcg (7 x 175 mcg) one day per week. Labs persistently showed hypothyroidism. Labs 06/26/2021 prior to dose of levothyroxine being increased revealed a TSH of 28.57, TG level 0.4 and TG antibody level <1. Labs 11/15/2021 with TSH 90.49, TG 6.6 and TG antibodies <1. Her dose of levothyroxine was switched to 1400 mcg PO once a week. TSH remained in the hypothyroid range. She presented to the office 02/05/2022 for a supervised levothyroxine absorption test. She was administered levothyroxine 1000 mcg PO in the office under my supervision. TSH and FT4 were drawn pre-test, at 2 hours, 4 hours and 24 hours post administration. At the 24 hour point her TSH did decline, but did not meet the 40% decline threshold to indicate pseudomalabsorption. Additionally her FT4 did not sufficiently increase 3-4x. She failed this test and was thought to have truly deficient absorption of levothyroxine. Her dose was changed to Tirosint Michelle 400 mcg PO daily and TSH is now at goal. Denies any symptoms of hyper or hypothyroidism. She reports feeling well. She does complain of some hoarseness of her voice currently. Denies any history of head or neck irradiation. Denies any family history of thyroid cancer. US Head and Neck: 06/29/2022 THYROID BED: Prior thyroidectomy. No residual thyroid tissue demonstrated in the thyroid bed. No cystic or solid nodules demonstrated in the thyroid bed. RIGHT NECK SOFT TISSUES: Scattered architecturally normal nodes are present. The nodes show normal fatty hilus, normal cortical thickness, and no cystic change or calcification. No abnormal color flow. The largest nodes are as follows: Level 1B: 0.8 x 0.7 x 1.2 cm.? Normal hipolito architecture. Level 1B: 0.8 x 0 0.5-0.8 cm.? Normal hipolito architecture. Level 4: 1 x 0.5 x 0.7 cm.? Slightly diminutive hilum Level 4: 1 x 0.5 x 0.8 cm.? Normal hipolito architecture. Level 5A: 1 x 0.4 x 0.7 cm.? Normal hipolito architecture. LEFT NECK SOFT TISSUES: Scattered architecturally normal nodes are present. The nodes show normal fatty hilus, normal cortical thickness, and no cystic change or calcification. No abnormal color flow. The largest nodes are as follows: Level 1B: 0.6 x 0.9 x 0.5 cm.? Normal hipolito architecture. Level 1B: 0.6 x 0.5 x 0.5 cm.? Minimal hilum Level 1B: 0.5 x 0.6 x 0.7 cm.? Normal hipolito architecture. Level 3: 0.8 x 1.6 x 0.6 cm.? Normal hipolito architecture. Level 3: 0.8 x 1.1 x 0.4 cm.? Normal hipolito architecture. Level 3: 1.5 x 0.5 x 1.1 cm.? Normal hipolito architecture. Level 5A: 0.4 x 0.3 x 0.5 cm.? Small node, no discernible hilum Labs: Laboratory Tests 11/19/22 02/08/23 09:39 09:54 TSH 3.67 Free T4 1.20 Thyroglobulin 0.2 H Thyroglobulin Antibody <1 Currently on Tirosint michelle 400 ug QD . Dose was changed 3 weeks ago [facility] Medical History (Updated 01/28/24 @ 11:24 by Karen Hills RN) Incomplete right bundle branch block (RBBB) Uterine fibroid DANIEL (obstructive sleep apnea) Cervical cancer Schizoaffective disorder Pancreatitis Type 2 diabetes mellitus JESICA positive Vitamin D deficiency Postoperative hypothyroidism History of thyroid cancer Morbid obesity Sacroiliitis Multinodular goiter HLD (hyperlipidemia) COPD (chronic obstructive pulmonary disease) GERD (gastroesophageal reflux disease) Bipolar 1 disorder Hypercalcemia Goiter Hypothyroidism Surgical History Hx of total thyroidectomy Hx of tubal ligation Hx of cholecystectomy Family History Father Bipolar 1 disorder Mother Diabetes mellitus Hypertension Hyperlipidemia COPD (chronic obstructive pulmonary disease) Paternal Aunt Breast cancer Sister Cervical cancer Social History Household Members: Spouse and Children Housing: Apartment Alcohol intake: never Patient Tobacco Use Status: Former Tobacco user Tobacco use type: Cigarette Cigarettes Per Day: 3 Substance Use Type: Marijuana service: No Current occupational status: other 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 There was no extrathyroidal extension, no angioinvasian, no lymphatic invasion, and margins were negative. No lymph nodes were examined. 1 parathyroid gland was also resected. This was staged as [id number].. She is having issues with absorption currently takes Tirosint 400 ug QD. Dose was increased 3 weeks ago Plan is to recheck TSH, free T4 and thyroglobulin about 4 weeks' time. Further adjustment of Tirosint will take place at that time if necessary.. If we are unable to get TSH levels to normal on this high dose, may consider referral for secondary opinion to [place] [facility] or l [facility]. After discussion with the patient, we decided to referred to [facility] for a 2nd opinion regarding absorption an alternative administration should that become necessary Orders: Orders Thyroglobulin Tumor Marker 5 Weeks Z85.850 - Personal history of malignant neoplasm of thyroid Referrals Endocrinology Referral Z85.850 - Personal history of malignant neoplasm of thyroid Coding Level of Care Code Est Pt Level 3 (62625) Diagnoses History of thyroid cancer Z85.850
[2024-03-30 13:36] VITALS: BP 122/62; PULSE 103; BMI 32.7
== END 2024-03-30 15:53 | disposition home or self-care (01) ==
PROVIDERS: PCP Family Medicine; Visit Provider Internal Medicine Endocrinology, Diabetes & Metabolism
DX: Z85.850 Personal history of malignant neoplasm of thyroid (principal)
CPT/HCPCS: 99213

== ENCOUNTER → 2024-03-30 13:31 | Outpatient (BNVA) | payer OTHER, SELFPAY | PROVIDERS: PCP Family Medicine; Visit Provider Internal Medicine Endocrinology, Diabetes & Metabolism | DX: Z85.850 Personal history of malignant neoplasm of thyroid (principal) | CPT/HCPCS: 99212 ==

== ENCOUNTER 2024-06-09 14:14 | Outpatient (REF) | payer OTHER, SELFPAY ==
[2024-06-09 16:05] LABS: Free T4 (Free Thyroxine) 1.24 ng/dL (0.71-1.85); Thyroid Stimulating Hormone 0.24 uIU/mL (0.32-4.0)
[2024-06-13 21:58] LABS: Thyroglobulin Antibody <1 IU/mL (<=1); Thyroglobulin Level 0.1 ng/mL
== END 2024-06-09 14:15 | disposition home or self-care (01) ==
LOC: HO.LAB 14:14
PROVIDERS: PCP Family Medicine; Visit Provider Internal Medicine Endocrinology, Diabetes & Metabolism
DX: E89.0 Postprocedural hypothyroidism (principal); Z85.850 Personal history of malignant neoplasm of thyroid
CPT/HCPCS: 36415; 84432; 84439; 84443; 86800

== ENCOUNTER 2024-06-23 09:07 | Outpatient (AMB) | payer OTHER, SELFPAY ==
--- NOTE | 2024-06-23 09:08 | A.OFFVIS_ITS ---
Vital Signs 06/23/24 09:09 Height 5 ft 8 in Weight 206 lb 2.115 oz BMI 31.3 BP 98/62 Blood Pressure Location Lt brachial Position Sitting Pulse 89 Pulse Source Pulse Oximeter Intake Visit Reasons: F/U Thyroid Cancer-confirmed Intake Note: Patient present today for Thyroid cancer follow up visit. Answering Service Operator Required: No Accompanied by: Self / Same As Patient Allergies oxycodone [Percocet] Allergy (Intermediate, Verified 06/23/24 09:40) stomach pain SEASONAL ALLERGIES Allergy (Unknown, Uncoded 06/23/24 09:40) UNKNOWN Medication List - Last Reconciled 06/23/24 by Dillon Valdez MD acetaminophen ER 650 mg PO Q8H PRN albuterol sulfate 90 mcg/actuation 2 puffs inhalation ONCE PRN alcohol swabs 0 pad topical DAILY aripiprazole 20 mg PO DAILY aspirin 81 mg PO DAILY atorvastatin 40 mg PO DAILY benztropine 1 mg PO DAILY bisacodyl (Dulcolax (bisacodyl)) 20 mg (4 x 5 mg) PO ONCE 1 day bupropion HCl XL 300 mg PO DAILY bupropion HCl XL 150 mg PO DAILY cefdinir 300 mg PO BID 5 days cetirizine (Zyrtec) 10 mg PO BEDTIME clonazepam (Klonopin) 1 mg PO BID PRN ferrous sulfate 325 mg PO DAILY 30 days fluticasone propionate 110 mcg/actuation (Flovent HFA) 2 puffs inhalation BID fluticasone propionate 50 mcg/actuation (Flonase Allergy Relief) 2 sprays intranasal DAILY PRN glipizide 5 mg PO BID haloperidol 1/2 tab am, 1/2 tab pm PO 2 times a day; lisinopril 2.5 mg PO DAILY metformin ER 1,000 mg PO BID methocarbamol 750 mg PO TID metronidazole 500 mg PO BID 7 days montelukast (Singulair) 10 mg PO BEDTIME pantoprazole 20 mg PO BID polyethylene glycol 3350 (Miralax) 238 grams PO ONCE 1 day Tirosint-Michelle (levothyroxine) 350 mcg (1.75 mL) PO DAILY NS tramadol (Ultram) 50 mg PO Q8H PRN HPI Comments Details: 53 YO F with an extensive PMHx who is seen in F/U for thyroid cancer and postoperative hypothyroidism.. She underwent a CT of the neck 05/20/2020 which revealed thyromegaly with concern for a multinodular thyroid. There was displacement of the trachea to the R. She was also found to have an enlarged L level IB cervical lymph node. She was subsequently referred to Endocrinology. She had a large goiter with compressive symptoms and was referred to Dr. Combs for a total thyroidectomy. 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 There was no extrathyroidal extension, no angioinvasian, no lymphatic invasion, and margins were negative. No lymph nodes were examined. 1 parathyroid gland was also resected. This was staged as [id number]. She underwent I131 remnant ablation 10/16/2021with 31.7 mCi of I131. Post- treatment WBS revealed intense foci of uptake in the right upper and left lower thyroid bed. There was additional mild uptake in the region supero-lateral to the L thyroid bed. Otherwise uptake was physiologic. Postoperatively she was started on Levothyroxine 150 mcg PO daily. Labs revealed hypothyroidism so dose was increased to Levothyroxine 175 mcg PO daily. Labs continued to reveal hypothyroidism, so her dose was changed to levothyroxine 1225 mcg (7 x 175 mcg) one day per week. Labs persistently showed hypothyroidism. Labs 06/26/2021 prior to dose of levothyroxine being increased revealed a TSH of 28.57, TG level 0.4 and TG antibody level <1. Labs 11/15/2021 with TSH 90.49, TG 6.6 and TG antibodies <1. Her dose of levothyroxine was switched to 1400 mcg PO once a week. TSH remained in the hypothyroid range. She presented to the office 02/05/2022 for a supervised levothyroxine absorption test. She was administered levothyroxine 1000 mcg PO in the office under my supervision. TSH and FT4 were drawn pre-test, at 2 hours, 4 hours and 24 hours post administration. At the 24 hour point her TSH did decline, but did not meet the 40% decline threshold to indicate pseudomalabsorption. Additionally her FT4 did not sufficiently increase 3-4x. She failed this test and was thought to have truly deficient absorption of levothyroxine. Her dose was changed to Tirosint Michelle 400 mcg PO daily and TSH is now at goal. Denies any symptoms of hyper or hypothyroidism. She reports feeling well. She does complain of some hoarseness of her voice currently. Denies any history of head or neck irradiation. Denies any family history of thyroid cancer. US Head and Neck: 06/29/2022 THYROID BED: Prior thyroidectomy. No residual thyroid tissue demonstrated in the thyroid bed. No cystic or solid nodules demonstrated in the thyroid bed. RIGHT NECK SOFT TISSUES: Scattered architecturally normal nodes are present. The nodes show normal fatty hilus, normal cortical thickness, and no cystic change or calcification. No abnormal color flow. The largest nodes are as follows: Level 1B: 0.8 x 0.7 x 1.2 cm.? Normal hipolito architecture. Level 1B: 0.8 x 0 0.5-0.8 cm.? Normal hipolito architecture. Level 4: 1 x 0.5 x 0.7 cm.? Slightly diminutive hilum Level 4: 1 x 0.5 x 0.8 cm.? Normal hipolito architecture. Level 5A: 1 x 0.4 x 0.7 cm.? Normal hipolito architecture. LEFT NECK SOFT TISSUES: Scattered architecturally normal nodes are present. The nodes show normal fatty hilus, normal cortical thickness, and no cystic change or calcification. No abnormal color flow. The largest nodes are as follows: Level 1B: 0.6 x 0.9 x 0.5 cm.? Normal hipolito architecture. Level 1B: 0.6 x 0.5 x 0.5 cm.? Minimal hilum Level 1B: 0.5 x 0.6 x 0.7 cm.? Normal hipolito architecture. Level 3: 0.8 x 1.6 x 0.6 cm.? Normal hipolito architecture. Level 3: 0.8 x 1.1 x 0.4 cm.? Normal hipolito architecture. Level 3: 1.5 x 0.5 x 1.1 cm.? Normal hipolito architecture. Level 5A: 0.4 x 0.3 x 0.5 cm.? Small node, no discernible hilum Labs: Laboratory Tests 11/19/22 02/08/23 09:39 09:54 TSH 3.67 Free T4 1.20 Thyroglobulin 0.2 H Thyroglobulin Antibody <1 Currently on Tirosint michelle 400 ug QD . Dose was changed 3 weeks ago [facility] Medical History (Updated 01/28/24 @ 11:24 by Karen Hills RN) Incomplete right bundle branch block (RBBB) Uterine fibroid DANIEL (obstructive sleep apnea) Cervical cancer Schizoaffective disorder Pancreatitis Type 2 diabetes mellitus JESICA positive Vitamin D deficiency Postoperative hypothyroidism History of thyroid cancer Morbid obesity Sacroiliitis Multinodular goiter HLD (hyperlipidemia) COPD (chronic obstructive pulmonary disease) GERD (gastroesophageal reflux disease) Bipolar 1 disorder Hypercalcemia Goiter Hypothyroidism Surgical History Hx of total thyroidectomy Hx of tubal ligation Hx of cholecystectomy Family History Father Bipolar 1 disorder Mother Diabetes mellitus Hypertension Hyperlipidemia COPD (chronic obstructive pulmonary disease) Paternal Aunt Breast cancer Sister Cervical cancer Social History Household Members: Spouse and Children Housing: Apartment Alcohol intake: never Patient Tobacco Use Status: Former Tobacco user Tobacco use type: Cigarette Cigarettes Per Day: 3 Substance Use Type: Marijuana service: No Current occupational status: other 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 There was no extrathyroidal extension, no angioinvasian, no lymphatic invasion, and margins were negative. No lymph nodes were examined. 1 parathyroid gland was also resected. This was staged as [id number].. She is having issues with absorption currently takes Tirosint 400 ug QD. Recent TSH was suppressed Plan is to reduce the tear sent to 350 mcg and recheck TSH, free T4 about 4 weeks' time. Further adjustment of Tirosint will take place at that time if necessary.. Will have patient follow up with Dr. Candelario room clerk who joined our practice was expert neck ultrasound Orders: Orders Free T4 (Free Thyroxine) 6 Weeks Z85.850 - Personal history of malignant neoplasm of thyroid Thyroid Stimulating Hormone 6 Weeks Z85.850 - Personal history of malignant neoplasm of thyroid Medications: New Tirosint-Michelel (levothyroxine) 350 mcg (1.75 mL) PO DAILY 30 mL 5RF NS Discontinued Tirosint-Michelle (levothyroxine) Discontinued Reason: Doctor's Order 400 mcg (2 mL) PO DAILY 1 month 60 mL 0RF NS E89.0 - Postprocedural hypothyroidism Coding Level of Care Code Est Pt Level 3 (65440) Diagnoses History of thyroid cancer Z85.850
[2024-06-23 09:09] VITALS: BP 98/62; PULSE 89; BMI 31.3
== END 2024-06-23 09:44 | disposition home or self-care (01) ==
PROVIDERS: PCP Family Medicine; Visit Provider Internal Medicine Endocrinology, Diabetes & Metabolism
DX: Z85.850 Personal history of malignant neoplasm of thyroid (principal)
CPT/HCPCS: 99213

== ENCOUNTER → 2024-06-23 09:07 | Outpatient (BNVA) | payer OTHER, SELFPAY | PROVIDERS: PCP Family Medicine; Visit Provider Internal Medicine Endocrinology, Diabetes & Metabolism | DX: E89.0 Postprocedural hypothyroidism (principal); C73 Malignant neoplasm of thyroid gland | CPT/HCPCS: 99212 ==

== ENCOUNTER 2024-06-25 07:23 | Outpatient (REF) | payer OTHER, SELFPAY ==
--- NOTE | ~2024-06-25 | US_ITS ---
EXAMINATION: US ABDOMEN COMPLETE CLINICAL INFORMATION: Fatty liver. COMPARISON: CT chest 01/27/2024. CT abdomen and pelvis 01/25/2022. Ultrasound abdomen complete 04/18/2018. TECHNIQUE: Real-time imaging of the abdominal viscera. FINDINGS: PANCREAS: Peripancreatic lymph node present measuring 1.6 x 0.8 x 0.9 cm. The remainder of the visualized pancreas appears unremarkable. The tail is obscured by bowel gas. ABDOMINAL AORTA: The proximal, mid, and distal segments are normal in caliber. INFERIOR VENA CAVA: Visualized portions are normal. LIVER: The liver is enlarged measuring over 21 cm in cephalocaudad dimension with increased echogenicity, consistent with hepatic steatosis. The liver contour is normal. No focal hepatic lesion. There is no intrahepatic biliary duct dilatation seen. GALLBLADDER: Surgically absent. COMMON BILE DUCT: Normal in caliber measuring 0.6 cm in diameter. RIGHT KIDNEY: Normal. No hydronephrosis. No renal calculi or focal parenchymal lesions. The kidney measures 11.2 cm in maximum dimension. LEFT KIDNEY: Normal. No hydronephrosis. No renal calculi or focal parenchymal lesions. The kidney measures 11.9 cm in maximum dimension. SPLEEN: Normal. The spleen measures 9.7 cm in maximum dimension. FREE FLUID: None. US/US abdomen complete IMPRESSION: Enlarged fatty liver. Electronically signed by: Melvin Silverman MD 07/13/2024 12:54 PM EDT
== END 2024-06-25 07:24 | disposition home or self-care (01) ==
LOC: HO.US 07:23
PROVIDERS: PCP Family Medicine; Visit Provider Family Medicine
DX: K76.0 Fatty (change of) liver, not elsewhere classified (principal)
CPT/HCPCS: 76700

== ENCOUNTER 2024-07-06 11:10 | Emergency (ER) | payer OTHER, SELFPAY ==
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
[2024-07-06 11:14] VITALS: BP 132/76; PULSE 81
[2024-07-06 12:02] VITALS: BP 115/64; PULSE 82; RESP 18; TEMP 36.8; O2SAT 96; BMI 32.3
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
--- NOTE | 2024-07-06 12:05 | ECG_ITS ---
Test Reason : NAUSEA, VOMITTING Blood Pressure : / mmHG Vent. Rate : 073 BPM Atrial Rate : 073 BPM P-R Int : 182 ms QRS Dur : 098 ms QT Int : 392 ms P-R-T Axes : 039 -32 064 degrees QTc Int : 431 ms Normal sinus rhythm Left axis deviation Low voltage QRS Incomplete right bundle branch block Cannot rule out Anterior infarct , age undetermined Abnormal ECG When compared with ECG of 14-NOV-2022 09:18, Minimal criteria for Anterior infarct are now Present QRS axis Shifted left Referred By: Sana Teague Electronically Signed By:KERMIT LYNN
[2024-07-06 13:46] LABS: MANUAL DIFF FLAG NO
[2024-07-06 13:48] VITALS: BP 122/66; PULSE 72; RESP 16; TEMP 36.6; O2SAT 98
[2024-07-06 13:52] LABS: Basophils Percent Auto 0.3 % (0-2); Eosinophils Absolute Auto 0.2 X10*3/uL (0.0-0.4); Eosinophils Percent Auto 1.6 % (0-4); Hematocrit 41.5 % (37.0-47.0); Imm Gran Abs Auto 0.04 X10*3/uL (0.00-0.03); Imm Gran Pct Auto 0.4 % (0.0-0.4); Lymphocytes Absolute Auto 3.2 X10*3/uL (1.2-4.9); Lymphocytes Percent Auto 27.7 % (20-40); Mean Corpuscular HGB Conc 33.7 g/dl (31.0-35.0); Mean Corpuscular Hemoglobin 28.2 pg (27.0-33.0); Mean Corpuscular Volume 83.5 fL (80.0-98.0); Mean Platelet Volume 9.6 fL (9.4-12.3); Monocytes Absolute Auto 0.6 X10*3/uL (0.1-1.2); Monocytes Percent Auto 5.2 % (2-11); Neutrophils Absolute Auto 7.4 x10*3/uL (2.0-8.3); Neutrophils Percent Auto 64.8 % (45-73); Platelet Count 322 X10*3/uL (160-400); Red Blood Count 4.97 X10*6/uL (4.20-5.50); Red Cell Distribution Width 14.1 % (11.0-16.0); White Blood Count 11.4 X10*3/uL (4.8-10.8)
[2024-07-06 14:10] LABS: Appearance Urine Clear; Color Urine Yellow; Glucose Urine UA 100 mg/dL (Negative); Leukocyte Esterase Urine Moderate (2+) (Negative); Nitrite Urine Negative (Negative); Specific Gravity - Urine <= 1.005 (1.005-1.025); UMIC TRIGGER UACC YES; Urine Blood Negative (Negative); Urine Ketones Negative (Negative); Urine Protein Negative (Neg-Trace)
[2024-07-06 14:12] LABS: Alanine Aminotransferase 22 U/L (0-31); Albumin Level 4.4 g/dL (3.5-5.0); Alkaline Phosphatase 96 U/L (39-117); Anion Gap 11 (12-20); Aspartate Amino Transferase 16 U/L (5-31); Bilirubin Total 0.2 mg/dL (0.0-1.0); Blood Urea Nitrogen 9 mg/dL (9-16); Calcium 9.9 mg/dL (8.4-10.2); Carbon Dioxide 32 mmol/L (22-29); Chloride 103 mmol/L (96-108); Creatinine Clr Calc Pharmacy 75.8; Estimated Glomerular Filt Rate 56; Glucose Random 146 mg/dL (60-115); Magnesium 1.8 mg/dL (1.6-2.6); Potassium 4.4 mmol/L (3.3-5.1); Sodium 142 mmol/L (135-145); Total Protein 7.7 g/dL (6.5-8.0)
[2024-07-06 14:15] VITALS: BP 107/67; PULSE 71; RESP 16; TEMP 36.6; O2SAT 98
[2024-07-06 14:20] LABS: Troponin-I High Sensitivity < 2.7 ng/L (<3.5-17.0)
[2024-07-06] MEDS: 0.9 % Sodium Chloride 1,000 ML 999 ML IV (14:20)
[2024-07-06] MEDS: Ketorolac Tromethamine 15 MG/ML VIAL IVPUSH (14:20)
[2024-07-06] MEDS: diazePAM 10 MG/2 ML CARTRIDGE 2.5 MG IVPUSH (14:21)
[2024-07-06 14:22] LABS: Glucose, Whole Blood 120 mg/dL (60-115)
[2024-07-06 14:28] LABS: Influenza A PCR NEGATIVE (Negative); Influenza B PCR NEGATIVE (Negative); Resp Syncy Virus RNA Qual PCR NEGATIVE (Negative); SARS COV2 PCR INHOUSE NEGATIVE (Negative)
[2024-07-06 14:36] LABS: Bacteria Urine 2+ (None Seen); Hyaline Casts Urine 0-2 /LPF (0-2); RBC Urine 0-2 /HPF (0-2); Squamous Epithelial Cell Urine 0-2 /HPF (0-2); UACC Culture Trigger YES
[2024-07-06 15:19] VITALS: BP 134/83; PULSE 73; RESP 16; TEMP 36.6; O2SAT 97
[2024-07-06 15:23] VITALS: BP 134/83; PULSE 73; RESP 16; TEMP 36.6; O2SAT 97
== END 2024-07-06 15:24 | disposition home or self-care (01) ==
PROVIDERS: Physician Assistant Medical; Emergency Provider Emergency Medicine; PCP Family Medicine
DX: S13.4XXA Sprain of ligaments of cervical spine, initial encounter (principal); R51.9 Headache, unspecified; M54.2 Cervicalgia; R39.15 Urgency of urination; M79.602 Pain in left arm; M79.605 Pain in left leg; R94.31 Abnormal electrocardiogram [ECG] [EKG]; V43.92XA Unspecified car occupant injured in collision with other type car in traffic accident, initial encounter; Y93.89 Activity, other specified; Y92.488 Other paved roadways as the place of occurrence of the external cause; Y99.8 Other external cause status; Z03.818 Encounter for observation for suspected exposure to other biological agents ruled out; Z79.899 Other long term (current) drug therapy
CPT/HCPCS: 0241U; 36415; 70450; 73090; 73552; 80053; 81001; 82947; 83735; 84484; 85025; 87086; 93005; 96374; 96375; 99284; J1885; J3360

== ENCOUNTER 2024-07-15 12:55 | Outpatient (REF) | payer OTHER, SELFPAY ==
--- NOTE | ~2024-07-15 | XR_ITS ---
EXAMINATION: XR THORACIC SPINE XR LUMBAR SPINE CLINICAL INFORMATION: Thoracic and lumbar back pain. COMPARISON: CT chest dated 01/27/2024. CT abdomen/pelvis dated 01/25/2022. TECHNIQUE: AP, lateral, and swimmer's views of the thoracic spine. AP, lateral, and coned-down views of the lumbar spine. FINDINGS: THORACIC SPINE: Normal vertebral body alignment. The thoracic kyphosis is maintained. No acute fracture or subluxation. No loss of vertebral body height or intervertebral disc height. Small anterior endplate osteophytes, unchanged. No concerning lytic or blastic osseous lesion. The visualized lungs are clear. LUMBAR SPINE: The lumbar lordosis is maintained. No acute fracture or subluxation. No loss of vertebral body height. Loss of intervertebral disc height with anterior endplate osteophytes at L3-L4, slightly progressed. No concerning lytic or blastic osseous lesion. No abnormal soft tissue calcification. Right upper quadrant surgical clips. XR/XR lumbar spine 2-3V IMPRESSION: THORACIC SPINE: Mild degenerative disc disease, unchanged. LUMBAR SPINE: Mild degenerative disc disease at L3-L4, slightly progressed. Electronically signed by: Zachariah Zamudio MD 07/30/2024 08:57 PM EDT
--- NOTE | ~2024-07-15 | XR_ITS ---
EXAMINATION: XR THORACIC SPINE XR LUMBAR SPINE CLINICAL INFORMATION: Thoracic and lumbar back pain. COMPARISON: CT chest dated 01/27/2024. CT abdomen/pelvis dated 01/25/2022. TECHNIQUE: AP, lateral, and swimmer's views of the thoracic spine. AP, lateral, and coned-down views of the lumbar spine. FINDINGS: THORACIC SPINE: Normal vertebral body alignment. The thoracic kyphosis is maintained. No acute fracture or subluxation. No loss of vertebral body height or intervertebral disc height. Small anterior endplate osteophytes, unchanged. No concerning lytic or blastic osseous lesion. The visualized lungs are clear. LUMBAR SPINE: The lumbar lordosis is maintained. No acute fracture or subluxation. No loss of vertebral body height. Loss of intervertebral disc height with anterior endplate osteophytes at L3-L4, slightly progressed. No concerning lytic or blastic osseous lesion. No abnormal soft tissue calcification. Right upper quadrant surgical clips. XR/XR thoracic spine 2V IMPRESSION: THORACIC SPINE: Mild degenerative disc disease, unchanged. LUMBAR SPINE: Mild degenerative disc disease at L3-L4, slightly progressed. Electronically signed by: Zachariah Zamudio MD 07/30/2024 08:57 PM EDT
--- NOTE | ~2024-07-15 | XR_ITS ---
EXAMINATION: XR KNEE, RIGHT CLINICAL INFORMATION: Right knee pain and swelling. COMPARISON: Right knee radiographs dating 05/06/2023. TECHNIQUE: Four views of the right knee. FINDINGS: No acute fracture or dislocation. Tiny medial compartment marginal osteophytes, unchanged. Faint medial and lateral compartment chondrocalcinosis, unchanged. No osseous erosion. No significant joint effusion. XR/XR knee RT 4V IMPRESSION: 1. Minimal medial compartment arthrosis, unchanged. 2. Faint medial and lateral compartment chondrocalcinosis, unchanged. Electronically signed by: Zachariah Zamudio MD 07/30/2024 08:56 PM EDT
== END 2024-07-15 12:56 | disposition home or self-care (01) ==
LOC: HO.HHCX 12:55
PROVIDERS: Visit Provider Family Medicine
DX: M54.9 Dorsalgia, unspecified (principal); M25.561 Pain in right knee
CPT/HCPCS: 72070; 72100; 73564

== ENCOUNTER 2024-07-31 13:10 | Outpatient (REF) | payer OTHER, SELFPAY ==
--- NOTE | ~2024-07-31 | CT_ITS ---
EXAMINATION: CT CHEST WITHOUT CONTRAST CLINICAL INFORMATION: Follow-up of 7 mm left lower lobe nodule. COMPARISON: 01/27/2024. TECHNIQUE: Multidetector volumetric CT imaging of the chest was done. Axial MIP volume rendering provided. Sagittal and coronal reformatted images were obtained. This CT examination was performed using dose optimization techniques as appropriate, variously including the following: *Automated exposure control *Adjustment of mA and/or kV according to patient size (this includes techniques or standardized protocols for targeted exams where dose is matched to indication/reason for exam; i.e. extremities or head) *Use of iterative reconstruction technique DLP: 214 mGy-cm Exam submitted for review 10/09/2024. FINDINGS: PULMONARY NODULES: -There are a few scattered 1-2 mm pulmonary nodules bilaterally, unchanged, benign. -Left lower lobe pulmonary nodule has continued to enlarge, currently measuring 0.9 x 1.1 cm in axial plane, previously 0.7 x 0.7 cm. There is new mild retraction of the major fissure abutting the nodule. This has very suspicious appearance, and should be evaluated with PET or biopsy. -No additional nodules of concern. LUNGS: -There is mild pulmonary centrilobular emphysema. -There are no consolidations, effusions, or pneumothoraces. -There are no abnormal opacities. -Lungs otherwise clear. MEDIASTINUM: -Stable appearance of a few mildly prominent but nonpathologically enlarged mediastinal lymph nodes, measuring up to 9 mm short axis. No pathologic lymph nodes seen. -Heart size normal. A small pericardial effusion is unchanged. -Thyroid not well seen. -Mediastinal structures are otherwise normal. CORONARY ARTERY CALCIFICATION: None visualized on this study. PLEURA: There is no pleural effusion. No pleural mass or thickening. AXILLA/CHEST WALL: -There are numerous nonpathologically enlarged lymph nodes in the right greater than left axillary regions, similar to the prior examination, measuring up to 9 mm short axis. This is of uncertain etiology or significance although appears to have minimally worsened in the interim in both lymph node number and size. -There is a small mass in the right breast with a biopsy clip measuring 1.5 x 2.0 cm, presumably benign. Patient appears to be due for screening mammography.2 -Additional abnormalities. UPPER ABDOMEN: Normal. OSSEOUS STRUCTURES: -No suspicious bone lesions. -Uvus-cm-eqbphiln degenerative changes in the central thoracic spine, unchanged. CT/CT chest wo IV con IMPRESSION: 1. The 7 mm left lower lobe nodule has enlarged to 1.2 cm, is HIGHLY SUSPICIOUS in morphology, and PET/CT and/or biopsy recommended. 2. Mildly worsening shotty lymphadenopathy in the right axillary and subpectoral regions of uncertain etiology. This could be evaluated with PET/CT as well. Stable biopsied mass in the right breast. Patient is due for bilateral screening mammography. 3. Mild centrilobular emphysema. 4. Stable and unchanged, normal sized lymph nodes in the mediastinum. No pathologic nodes noted. 5. Lungs otherwise clear. No additional concerning nodules. 6. See the body of report for ancillary findings. Findings will be communicated to Dr. Murphy via secure text and fax, 10/09/2024 at 9:00 AM. Electronically signed by: Lexa Lei MD 10/09/2024 09:01 AM [facility] [place]
[2024-07-31 14:43] LABS: Thyroid Stimulating Hormone 30.64 uIU/mL (0.32-4.0)
== END 2024-07-31 13:11 | disposition home or self-care (01) ==
LOC: HO.CT 13:10
PROVIDERS: Absent Provider Internal Medicine Endocrinology, Diabetes & Metabolism; PCP Family Medicine; Visit Provider Family Medicine
DX: R91.1 Solitary pulmonary nodule (principal); Z85.850 Personal history of malignant neoplasm of thyroid
CPT/HCPCS: 36415; 71250; 84439; 84443

== ENCOUNTER → 2024-07-31 13:27 | Outpatient (BNV) | payer OTHER, SELFPAY | PROVIDERS: Absent Provider Internal Medicine Endocrinology, Diabetes & Metabolism; PCP Family Medicine; Visit Provider Radiology Diagnostic Radiology | DX: J43.2 Centrilobular emphysema (principal); R91.1 Solitary pulmonary nodule; R59.0 Localized enlarged lymph nodes | CPT/HCPCS: 71250 ==

== ENCOUNTER 2024-08-13 15:12 | Outpatient (REF) | payer OTHER, SELFPAY ==
[2024-08-13 15:39] LABS: Hematocrit 39.6 % (37.0-47.0); Hemoglobin 13.4 g/dl (12.0-16.0); Mean Corpuscular HGB Conc 33.8 g/dl (31.0-35.0); Mean Corpuscular Hemoglobin 28.3 pg (27.0-33.0); Mean Corpuscular Volume 83.5 fL (80.0-98.0); Mean Platelet Volume 9.7 fL (9.4-12.3); Platelet Count 302 X10*3/uL (160-400); Red Blood Count 4.74 X10*6/uL (4.20-5.50); Red Cell Distribution Width 14.6 % (11.0-16.0); White Blood Count 12.6 X10*3/uL (4.8-10.8)
[2024-08-13 15:48] LABS: Estimated Average Glucose 166 mg/dL; Hemoglobin A1C 191.7127 umol/L; Hemoglobin A1c % 7.4 % (<6.0); Total Hemoglobin (HGBA1C) 3351.4829 umol/L
[2024-08-13 16:18] LABS: Alanine Aminotransferase 30 U/L (0-31); Albumin Level 4.4 g/dL (3.5-5.0); Alkaline Phosphatase 93 U/L (39-117); Anion Gap 14 (12-20); Aspartate Amino Transferase 20 U/L (5-31); Bilirubin Direct < 0.2 mg/dL (0.0-0.5); Bilirubin Total 0.2 mg/dL (0.0-1.0); Blood Urea Nitrogen 10 mg/dL (9-16); Calcium 9.8 mg/dL (8.4-10.2); Carbon Dioxide 29 mmol/L (22-29); Chloride 103 mmol/L (96-108); Cholesterol 151 mg/dL (<200); Estimated Glomerular Filt Rate 58; Glucose Random 81 mg/dL (60-115); HDL Cholesterol 39 mg/dL (>40); LDL Cholesterol Calculated 61 mg/dL (<100); Potassium 4.1 mmol/L (3.3-5.1); Sodium 142 mmol/L (135-145); Total Protein 7.8 g/dL (6.5-8.0); Triglycerides 257 mg/dL (<150)
[2024-08-13 16:34] LABS: Vitamin B12 451 pg/mL (200-900)
[2024-08-13 16:36] LABS: Thyroid Stimulating Hormone 22.85 uIU/mL (0.32-4.0); Vitamin D 25-OH Total 62.8 ng/mL (>30)
[2024-08-13 16:57] LABS: Creatinine Urine 21.51 mg/dL; Microalbumin Urine < 5.0 mg/L
[2024-08-15 04:34] LABS: Thyroglobulin 0.3 ng/mL; Thyroglobulin Antibodies 1 IU/mL (< or = 1)
[2024-08-19 07:03] LABS: Thyroglobulin Antibody <1 IU/mL (<=1); Thyroglobulin Level 0.4 ng/mL
== END 2024-08-13 15:13 | disposition home or self-care (01) ==
LOC: HO.LAB 15:12
PROVIDERS: PCP Family Medicine; Visit Provider Student in an Organized Health Care Education/Training Program
DX: Z00.00 Encounter for general adult medical examination without abnormal findings (principal); E11.9 Type 2 diabetes mellitus without complications; E78.49 Other hyperlipidemia; K76.0 Fatty (change of) liver, not elsewhere classified; F31.9 Bipolar disorder, unspecified; J44.9 Chronic obstructive pulmonary disease, unspecified; D72.829 Elevated white blood cell count, unspecified; K21.9 Gastro-esophageal reflux disease without esophagitis; M54.50 Low back pain, unspecified; G89.29 Other chronic pain; F17.200 Nicotine dependence, unspecified, uncomplicated; R91.1 Solitary pulmonary nodule; G57.31 Lesion of lateral popliteal nerve, right lower limb; Z85.850 Personal history of malignant neoplasm of thyroid
CPT/HCPCS: 36415; 80048; 80061; 80076; 82043; 82306; 82570; 82607; 83036; 84432; 84439; 84443; 85027; 86800

== ENCOUNTER 2024-09-10 12:00 | Outpatient (RCR) | payer OTHER, SELFPAY | END 2024-09-10 13:58 | disposition home or self-care (01) | LOC: HO.PT 12:00 | PROVIDERS: PCP Family Medicine; Visit Provider Family Medicine | DX: M54.2 Cervicalgia (principal); G44.319 Acute post-traumatic headache, not intractable | CPT/HCPCS: 97110; 97140; 97161; 97162; 97530 ==

== ENCOUNTER 2024-10-05 11:04 | Outpatient (REF) | payer OTHER, SELFPAY ==
[2024-10-05 13:52] LABS: Free T4 (Free Thyroxine) 1.26 ng/dL (0.71-1.85); Thyroid Stimulating Hormone 6.59 uIU/mL (0.32-4.0)
== END 2024-10-05 11:05 | disposition home or self-care (01) ==
LOC: HO.LAB 11:04
PROVIDERS: PCP Family Medicine; Visit Provider Student in an Organized Health Care Education/Training Program
DX: E89.0 Postprocedural hypothyroidism (principal); Z85.850 Personal history of malignant neoplasm of thyroid
CPT/HCPCS: 36415; 84439; 84443; 99212

== ENCOUNTER 2024-10-05 11:04 | Outpatient (AMB) | payer OTHER, SELFPAY ==
--- NOTE | 2024-10-05 11:11 | A.OFFVIS_ITS ---
Vital Signs 3 10/05/24 11:13 Height 5 ft 7.5 in Weight 206 lb 12.697 oz BMI 31.9 BP 100/58 L Blood Pressure Location Lt brachial Position Sitting Pulse 92 Pulse Source Pulse Oximeter Intake Visit Reasons: F/U Thyroid Cancer-lvm Intake Note: Patient present today for Thyroid Cancer follow up visit. Vaccinator Required: No Accompanied by: Daughter Allergies oxycodone [Percocet] Allergy (Intermediate, Verified 10/05/24 11:15) stomach pain SEASONAL ALLERGIES Allergy (Unknown, Uncoded 10/05/24 11:15) UNKNOWN Medication List - Last Reconciled 10/05/24 by Geneva Candelario MD acetaminophen ER 650 mg PO Q8H PRN albuterol sulfate 90 mcg/actuation 2 puffs inhalation ONCE PRN alcohol swabs 0 pad topical DAILY aripiprazole 20 mg PO DAILY aspirin 81 mg PO DAILY atorvastatin 40 mg PO DAILY benztropine 1 mg PO DAILY bisacodyl (Dulcolax (bisacodyl)) 20 mg (4 x 5 mg) PO ONCE 1 day bupropion HCl XL 300 mg PO DAILY bupropion HCl XL 150 mg PO DAILY cefdinir 300 mg PO BID 5 days cetirizine (Zyrtec) 10 mg PO BEDTIME clonazepam (Klonopin) 1 mg PO BID PRN ferrous sulfate 325 mg PO DAILY 30 days fluticasone propionate 110 mcg/actuation (Flovent HFA) 2 puffs inhalation BID fluticasone propionate 50 mcg/actuation (Flonase Allergy Relief) 2 sprays intranasal DAILY PRN glipizide 5 mg PO BID haloperidol 1/2 tab am, 1/2 tab pm PO 2 times a day; lidocaine 5% 1 patch topical DAILY lisinopril 2.5 mg PO DAILY metformin ER 1,000 mg PO BID methocarbamol 500 mg PO TID methocarbamol 750 mg PO TID metronidazole 500 mg PO BID 7 days montelukast (Singulair) 10 mg PO BEDTIME pantoprazole 20 mg PO BID polyethylene glycol 3350 (Miralax) 238 grams PO ONCE 1 day Tirosint-Michelle (levothyroxine) 400 mcg (2 mL) PO DAILY NS tramadol (Ultram) 50 mg PO Q8H PRN HPI Comments Details: 54-year-old female coming in today for follow up of thyroid cancer status post total thyroidectomy 04/17/2021, 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 No lymph nodes were examined. PAIGE initial intermediate risk of recurrence based on tall cell histology, AJCC stage I (pT1a Nx), currently PAIGE excellent response to therapy. History of PTC in detail 05/20/2020: CT of the neck revealed thyromegaly with concern of multinodular thyroid. There was displacement of the trachea to the right, also found to have an enlarged left level 1B cervical lymph node. 04/17/2021: Status post total thyroidectomy for large goiter with compressive symptoms with Dr. Parrish Combs at [facility], surgical pathology showed 0.2 cm focus of papillary microcarcinoma within the left lobe of the thyroid, tall cell variant. No extrathyroidal extension, no angioinvasion, no lymphatic invasion, margins were negative. All lymph nodes were examined. One parathyroid gland was also resected. PAIGE initial intermediate risk of recurrence. AJCC stage I (pT1a NX) 10/16/2021: Remnant ablation with radioactive I 131, 31.7 mCi, post treatment whole-body scan revealed intense foci of uptake in the right upper and left lower thyroid bed. Additional mild uptake in the region superior lateral to the left thyroid bed. Otherwise uptake was physiologic. Postoperatively she was started on Levothyroxine 150 mcg PO daily. Labs revealed hypothyroidism so dose was increased to Levothyroxine 175 mcg PO daily. Labs continued to reveal hypothyroidism, so her dose was changed to levothyroxine 1225 mcg (7 x 175 mcg) one day per week. Labs persistently showed hypothyroidism. 06/26/2021 prior to dose of levothyroxine being increased revealed a TSH of 28.57, TG level 0.4 and TG antibody level <1. 11/15/2021 with TSH 90.49, TG 6.6 and TG antibodies <1. Her dose of levothyroxine was switched to 1400 mcg PO once a week. TSH remained in the hypothyroid range. 02/05/2022 for a supervised levothyroxine absorption test. She was administered levothyroxine 1000 mcg PO in the office under supervision. TSH and FT4 were drawn pre-test, at 2 hours, 4 hours and 24 hours post administration. At the 24 hour point her TSH did decline, but did not meet the 40% decline threshold to indicate pseudomalabsorption. Additionally her FT4 did not sufficiently increase 3-4x. She failed this test and was thought to have truly deficient absorption of levothyroxine. Started on Tirosint Michelle 400 mcg PO daily and TSH became at goal. 06/29/2022: Ultrasound head and neck, no residual thyroid tissue in the thyroid bed, normal-appearing lymph nodes noted bilaterally. 06/09/2024: TSH 0.24, thyroglobulin 0.1, TG antibody less than 1, free T4 1.24 06/23/2024: Dose of Tirosint reduced from 400 to 350 mcg due to suppressed TSH. 07/31/2024: TSH 30.64, free T4 0.90 08/03/2024: increased back from 350 mcg of Tirosint solution to 400 mcg daily 08/13/2024: TSH 22.85, free T4 1, thyroglobulin 0.4, TG antibody less than 1 Denies any symptoms of hyper or hypothyroidism. She reports feeling well. Denies any history of head or neck irradiation. Denies any family history of thyroid cancer. No trouble swallowing, no pressure sensation, no voice changes Feels sluggish sometimes Denies constipation Lost 20 lbs in the last 2 years, patient feels she lost more Physical exam General: sitting comfortably in no acute distress HEENT: normocephalic/atraumatic, Neck: supple, symmetrical Cardiac: normal heart sounds Pulm: normal breath sounds B/L, no added breath sounds Abd: not distended, no tenderness Extremities: no edema, no signs of myxedema Laboratory Tests 05/08/19 06/01/20 12/27/20 13:40 15:53 13:10 Free T4 0.99 0.93 1.24 TSH Thyroglobulin Thyroglobulin Antibody 12/27/20 06/26/21 07/27/21 13:10 13:22 14:05 Free T4 1.37 0.72 0.76 TSH 0.01 L 28.57 H 56.13 H Thyroglobulin 0.4 L 0.7 L Thyroglobulin Antibody <1 <1 08/30/21 09/29/21 11/15/21 10:27 10:52 14:08 Free T4 0.88 0.85 0.85 TSH 82.48 H 78.36 H 90.49 H Thyroglobulin 2.6 L 6.6 Thyroglobulin Antibody <1 <1 11/29/21 12/29/21 01/25/22 14:25 12:02 15:34 Free T4 1.10 0.74 TSH 0.36 60.39 H 13.09 H Thyroglobulin Thyroglobulin Antibody 02/05/22 02/05/22 02/05/22 08:23 10:37 13:11 Free T4 0.88 0.93 1.08 TSH 71.18 H 69.62 H 68.45 H Thyroglobulin Thyroglobulin Antibody 02/06/22 03/22/22 04/30/22 08:17 12:56 11:32 Free T4 0.94 0.72 0.99 TSH 53.42 H > 100.00 H 16.03 H Thyroglobulin 0.9 L 0.3 L Thyroglobulin Antibody 1 <1 05/21/22 05/21/22 06/29/22 16:13 16:13 15:20 Free T4 1.34 1.06 TSH 4.18 H 4.36 H 1.48 Thyroglobulin Thyroglobulin Antibody 09/13/22 11/19/22 02/08/23 09:52 09:39 09:54 Free T4 1.37 1.20 TSH 2.95 3.67 Thyroglobulin 0.1 H 0.2 H Thyroglobulin Antibody <1 <1 04/04/23 08/26/23 12/11/23 15:36 14:47 11:59 Free T4 1.03 1.41 1.20 TSH 9.20 H 0.05 L 6.65 H Thyroglobulin 0.3 H Thyroglobulin Antibody <1 03/05/24 06/09/24 07/31/24 13:54 14:41 13:22 Free T4 0.83 1.24 0.90 TSH 66.25 H 0.24 L 30.64 H Thyroglobulin 0.1 H Thyroglobulin Antibody <1 08/13/24 15:26 Free T4 1.00 TSH 22.85 H Thyroglobulin 0.4 H Thyroglobulin Antibody <1 US SOFT TISSUE NECK 06/29/2022 CLINICAL INFORMATION: Personal history of malignant neoplasm of thyroid COMPARISON: CT soft tissue neck 10/28/2020. Ultrasound soft tissue head/neck thyroid dated 06/06/2020. TECHNIQUE: Ultrasound of the neck soft tissues is performed with high- frequency espinoza-scale imaging and color Doppler. FINDINGS: THYROID BED: Prior thyroidectomy. No residual thyroid tissue demonstrated in the thyroid bed. No cystic or solid nodules demonstrated in the thyroid bed. RIGHT NECK SOFT TISSUES: Scattered architecturally normal nodes are present. The nodes show normal fatty hilus, normal cortical thickness, and no cystic change or calcification. No abnormal color flow. The largest nodes are as follows: Level 1B: 0.8 x 0.7 x 1.2 cm. Normal hipolito architecture. Level 1B: 0.8 x 0 0.5-0.8 cm. Normal hipolito architecture. Level 4: 1 x 0.5 x 0.7 cm. Slightly diminutive hilum Level 4: 1 x 0.5 x 0.8 cm. Normal hipolito architecture. Level 5A: 1 x 0.4 x 0.7 cm. Normal hipolito architecture. LEFT NECK SOFT TISSUES: Scattered architecturally normal nodes are present. The nodes show normal fatty hilus, normal cortical thickness, and no cystic change or calcification. No abnormal color flow. The largest nodes are as follows: Level 1B: 0.6 x 0.9 x 0.5 cm. Normal hipolito architecture. Level 1B: 0.6 x 0.5 x 0.5 cm. Minimal hilum Level 1B: 0.5 x 0.6 x 0.7 cm. Normal hipolito architecture. Level 3: 0.8 x 1.6 x 0.6 cm. Normal hipolito architecture. Level 3: 0.8 x 1.1 x 0.4 cm. Normal hipolito architecture. Level 3: 1.5 x 0.5 x 1.1 cm. Normal hipolito architecture. Level 5A: 0.4 x 0.3 x 0.5 cm. Small node, no discernible hilum US/US soft tiss head and/or neck IMPRESSION: 1. Multiple bilateral cervical lymph nodes, as described. Several of the lymph nodes have minimal discernible chrystal without other architectural anomaly. 2. If clinically indicated further evaluation of the neck soft tissues and nodes may be performed with CT soft tissue neck with intravenous contrast. [facility] Medical History (Updated 07/07/24 @ 00:00 by Background Daemon) Incomplete right bundle branch block (RBBB) Uterine fibroid DANIEL (obstructive sleep apnea) Cervical cancer Schizoaffective disorder Pancreatitis Type 2 diabetes mellitus JESICA positive Vitamin D deficiency Postoperative hypothyroidism History of thyroid cancer Morbid obesity Sacroiliitis Multinodular goiter HLD (hyperlipidemia) COPD (chronic obstructive pulmonary disease) GERD (gastroesophageal reflux disease) Bipolar 1 disorder Hypercalcemia Goiter Hypothyroidism Surgical History Hx of total thyroidectomy Hx of tubal ligation Hx of cholecystectomy Family History Father Bipolar 1 disorder Mother Diabetes mellitus Hypertension Hyperlipidemia COPD (chronic obstructive pulmonary disease) Paternal Aunt Breast cancer Sister Cervical cancer Social History Household Members: Spouse and Children Housing: Apartment Alcohol intake: never Patient Tobacco Use Status: Former Tobacco user Tobacco use type: Cigarette Cigarettes Per Day: 3 Substance Use Type: Marijuana service: No Current occupational status: other 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: Yes (Stress) Female Reproductive History Menstrual Age of Menarche: 15 Physical Exam Vital Signs: Last Vital Signs Pulse 92 10/05/24 11:13 BP 100/58 L 10/05/24 11:13 BMI result Body Mass Index 31.9 Assessment & Plan Assessment & Plan (1) History of thyroid cancer: Comment: thyroidectomy 2020 Code(s): Z85.850 - Personal history of malignant neoplasm of thyroid Category: Medical Plan: 54-year-old female coming in today for follow up of thyroid cancer status post total thyroidectomy 04/17/2021, 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 No lymph nodes were examined. PAIGE initial intermediate risk of recurrence based on tall cell histology, AJCC stage I (pT1a Nx), last ultrasound neck in June of 2022 without any suspicious lymph nodes, her major issue postoperatively has been getting her TSH to goal with TSH consistently elevated due to absorption issues of levothyroxine. She is on Tirosint solution now with which we did see TSH come down intermittently making me suspicious that she is not taking her medication regularly. She has had the levothyroxine supervised a absorption test which did not exactly meet cut offs consistent with actual poor absorption rather than just poor adherence though numbers of free T4 did go high somewhat and TSH did get low but not exactly to cut off. Given her TSH is mostly elevated, we have seen multiple stimulated TG levels which has been in the range of 0.3-0.4 most recently consistent with PAIGE excellent response to therapy. 11/15/2021, when her TSH was elevated at 90, her thyroglobulin was at 6, otherwise has remained within good range. TG antibodies undetectable. On 06/09/2024 when TSH was suppressed at 0.24, unstimulated TG was 0.1, again consistent with a PAIGE excellent response to therapy. Most recently 06/09/2024: TSH 0.24, thyroglobulin 0.1, TG antibody less than 1, free T4 1.24 and on 08/13/2024: TSH 22.85, free T4 1, thyroglobulin 0.4, TG antibody less than 1. These labs were consistent with a PAIGE excellent response to therapy as I would take a TSH of 22 on the stimulated side. At this time she has not had an ultrasound for 2 years, I will order repeat ultrasound of the neck. Most recently her dose was increased back from 350 mcg of Tirosint solution to 400 mcg daily on 08/03/2024, and since it has been 8 weeks, I will have her repeat TFTs now. currently PAIGE excellent response to therapy. So TSH goal between 0.5-2. Plan: -continue levothyroxine 400 mcg solution daily -ordered TSH, free T4 to be done today -next thyroglobulin tumor markers in 3 months around 12/2024 prior to follow up -ordered ultrasound of the neck -follow up in 3 months (2) Postoperative hypothyroidism: Comment: some degree of thyroid hormone malabsorption Code(s): E89.0 - Postprocedural hypothyroidism Category: Medical Plan: Most recently 06/09/2024: TSH 0.24, thyroglobulin 0.1, TG antibody less than 1, free T4 1.24 and on 08/13/2024: TSH 22.85, free T4 1, thyroglobulin 0.4, TG antibody less than 1. These labs were consistent with a PAIGE excellent response to therapy as I would take a TSH of 22 on the stimulated side. So TSH goal between 0.5-2. Plan: -continue levothyroxine 400 mcg solution daily -ordered TSH, free T4 to be done today Plan I spent 30 minutes in reviewing the record, seeing the patient and documenting in the medical record. Orders: Orders 2 Thyroid Stimulating Hormone Today Z85.850 - Personal history of malignant neoplasm of thyroid Free T4 (Free Thyroxine) Today Z85.850 - Personal history of malignant neoplasm of thyroid Thyroid Stimulating Hormone 3 Months E89.0 - Postprocedural hypothyroidism, Z85.850 - Personal history of malignant neoplasm of thyroid Free T4 (Free Thyroxine) 3 Months E89.0 - Postprocedural hypothyroidism, Z85.850 - Personal history of malignant neoplasm of thyroid US soft tiss head and/or neck Today Z85.850 - Personal history of malignant neoplasm of thyroid Thyroglobulin 3 Months E89.0 - Postprocedural hypothyroidism, Z85.850 - Personal history of malignant neoplasm of thyroid Thyroglobulin Antibodies 3 Months E89.0 - Postprocedural hypothyroidism, Z85.850 - Personal history of malignant neoplasm of thyroid Thyroglobulin Tumor Marker 3 Months E89.0 - Postprocedural hypothyroidism, Z85.850 - Personal history of malignant neoplasm of thyroid Patient Instructions: Do blood work today , we will reach out with results Continue Tirosint 400 mcg daily Do neck ultrasound, someone will call you to schedule this Do blood work also prior to your next appointment with me in 3 months ( at least a week before) Coding Level of Care Code Est Pt Level 4 (97894) Complex EM visit Add On G2211 Diagnoses History of thyroid cancer Z85.850 Postoperative hypothyroidism E89.0 Time Spent (min) 30
[2024-10-05 11:13] VITALS: BP 100/58; PULSE 92; BMI 31.9
== END 2024-10-05 11:50 | disposition home or self-care (01) ==
PROVIDERS: PCP Family Medicine; Visit Provider Student in an Organized Health Care Education/Training Program
DX: Z85.850 Personal history of malignant neoplasm of thyroid (principal); E89.0 Postprocedural hypothyroidism
CPT/HCPCS: 99214; G2211

== ENCOUNTER 2024-10-20 14:07 | Outpatient (AMB) | payer OTHER, SELFPAY ==
--- NOTE | 2024-10-20 14:08 | MHC.OFFVIS ---
Vital Signs 10/20/24 14:15 Height 5 ft 7.5 in Weight 202 lb BMI 31.2 BP 128/59 L Blood Pressure Location Rt brachial Position Sitting Pulse 90 Intake Visit Reasons: Pulmonary Nodule Intake Note: Patient referred by pcp Dr. Galindo for LLL nodule. Patient c/o; denies SOB, denies difficulty breathing, cough. Chest CT: 07-31-2024. Police Investigator Required: No Accompanied by: cousin Zigmund Allergies oxycodone [Percocet] Allergy (Intermediate, Verified 10/20/24 14:14) stomach pain SEASONAL ALLERGIES Allergy (Unknown, Uncoded 10/20/24 14:14) UNKNOWN Medication List - Last Reconciled 10/20/24 by Mario Hoyt MD acetaminophen ER 650 mg PO Q8H PRN albuterol sulfate 90 mcg/actuation 2 puffs inhalation ONCE PRN alcohol swabs 0 pad topical DAILY aripiprazole 20 mg PO DAILY aspirin 81 mg PO DAILY atorvastatin 40 mg PO DAILY benztropine 1 mg PO DAILY bisacodyl (Dulcolax (bisacodyl)) 20 mg (4 x 5 mg) PO ONCE 1 day bupropion HCl XL 300 mg PO DAILY bupropion HCl XL 150 mg PO DAILY cefdinir 300 mg PO BID 5 days cetirizine (Zyrtec) 10 mg PO BEDTIME clonazepam (Klonopin) 1 mg PO BID PRN ferrous sulfate 325 mg PO DAILY 30 days fluticasone propionate 110 mcg/actuation (Flovent HFA) 2 puffs inhalation BID fluticasone propionate 50 mcg/actuation (Flonase Allergy Relief) 2 sprays intranasal DAILY PRN glipizide 5 mg PO BID haloperidol 1/2 tab am, 1/2 tab pm PO 2 times a day; lidocaine 5% 1 patch topical DAILY lisinopril 2.5 mg PO DAILY metformin ER 1,000 mg PO BID methocarbamol 500 mg PO TID methocarbamol 750 mg PO TID metronidazole 500 mg PO BID 7 days montelukast (Singulair) 10 mg PO BEDTIME pantoprazole 20 mg PO BID polyethylene glycol 3350 (Miralax) 238 grams PO ONCE 1 day Tirosint-Michelle (levothyroxine) 400 mcg (2 mL) PO DAILY NS tramadol (Ultram) 50 mg PO Q8H PRN HPI Comments Details: Patient presents with a symptomatic found other/family member to discuss a recently enlarging asymptomatic left lower lobe lung mass. Patient was a very significant smoking history of 2 packs per day for were 15-20 years. She says she has appreciably cut down to 5 cigarettes per day. She denies any chronic cough, hemoptysis, chest pain, wheezing. Her energy and appetite are stable. She has been treated with an antidiabetic medication which has controlled her sugars and also resulted in a 50 lb weight loss. Chart was reviewed and patient evaluated. FOR[facility], [facility] Medical History Incomplete right bundle branch block (RBBB) Uterine fibroid DANIEL (obstructive sleep apnea) Cervical cancer Schizoaffective disorder Pancreatitis Type 2 diabetes mellitus JESICA positive Vitamin D deficiency Postoperative hypothyroidism History of thyroid cancer Morbid obesity Sacroiliitis Multinodular goiter HLD (hyperlipidemia) COPD (chronic obstructive pulmonary disease) GERD (gastroesophageal reflux disease) Bipolar 1 disorder Hypercalcemia Goiter Hypothyroidism Surgical History Hx of total thyroidectomy Hx of tubal ligation Hx of cholecystectomy Family History Father Bipolar 1 disorder Mother Diabetes mellitus Hypertension Hyperlipidemia COPD (chronic obstructive pulmonary disease) Paternal Aunt Breast cancer Sister Cervical cancer Social History Household Members: Spouse and Children Housing: Apartment Alcohol intake: never Patient Tobacco Use Status: Former Tobacco user Tobacco use type: Cigarette Cigarettes Per Day: 2 Substance Use Type: Marijuana service: No Current occupational status: other 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 Corpulent. Neck Other: No cervical, periclavicular, or axillary adenopathy. Chest Other: Chest breath sounds bilaterally, consistent with mild COPD. HS 1 in 2 GI Other: Abdomen corpulent, soft, benign Assessment & Plan Assessment & Plan (1) Mass of lower lobe of left lung: Code(s): R91.8 - Other nonspecific abnormal finding of lung field Category: Surgical Plan: I discussed with the patient that combination with her smoking history, left lower lobe lung lesion wishes suspicious and has increased in size, it would be very prudent to further investigate this and rule out a neoplastic process. Part of this procedure we will include CT-guided lung biopsy, PET scan for staging, and baseline pulmonary function test. Arrangements will be made for all these. All questions answered. Patient will see me once these above-mentioned studies have been completed and further discussion will be undertaken. Patient was also encouraged to continue her weaning off her cigarettes. Orders: Orders CT biopsy lung LT Today R91.8 - Other nonspecific abnormal finding of lung field PET CT fusion skull to thigh Today R91.8 - Other nonspecific abnormal finding of lung field Coding Level of Care Code New Pt Level 4 (71402) Diagnoses Mass of lower lobe of left lung R91.8
[2024-10-20 14:15] VITALS: BP 128/59; PULSE 90; BMI 31.2
== END 2024-10-20 14:39 | disposition home or self-care (01) ==
PROVIDERS: PCP Family Medicine; Visit Provider Surgery
DX: R91.8 Other nonspecific abnormal finding of lung field (principal)
CPT/HCPCS: 99204

== ENCOUNTER → 2024-10-20 14:07 | Outpatient (BNVA) | payer OTHER, SELFPAY | PROVIDERS: PCP Family Medicine; Visit Provider Surgery | DX: R91.8 Other nonspecific abnormal finding of lung field (principal) | CPT/HCPCS: 99202 ==

== ENCOUNTER 2024-11-25 14:17 | Outpatient (REF) | payer OTHER, SELFPAY ==
--- NOTE | ~2024-11-25 | US_ITS ---
EXAMINATION: US SOFT TISSUE NECK. CLINICAL INFORMATION: History of malignant neoplasm of thyroid. COMPARISON: None available. TECHNIQUE: Linear transducer espinoza-scale and color Doppler examination with attention to the region of the thyroid. FINDINGS: History of prior thyroidectomy with no residual thyroid tissue or mass seen within the thyroid bed. There are several lymph nodes noted in the neck. Right neck soft tissues: Scattered architecturally normal nodes are present. The nodes show normal fatty hilus, normal cortical thickness and no cystic change or calcification. No abnormal color flow. The largest nodes seen are as follows, Level 5A: 0.84 x 0.54 x 0.25 cm. Normal appearance. Not seen previously. Level 2:1.0 x 1.2 x 0.31 cm. Normal appearance. Not seen previously. Level 3:1.2 x 0.9 x 0.30 cm. Has normal appearance. Previously measured 0.71 x 1.0 x 0.52 cm. Level 3:0.80 x 0.90 x 0.60 cm. Normal appearance. Not seen previously. Level 3:0.7x 0.70 x 0.50 cm. Normal appearance. Not seen previously. Level 1B: 0.95 x 1.1 x 0.70 cm. Normal appearance. Not seen previously. Level 1A: 0.76 x 0.73 x 0.47 cm right normal appearance not seen previously. Left neck soft tissues: Scattered architecturally normal nodes are present. The nodes show normal fatty hilus, normal cortical thickness and no cystic change or calcification. No abnormal color flow. The largest nodes are as follows. Level 1: 0.62 x 0.50 x 0.61 cm. Normal appearance. Previously measured 0.55 x 0.60 x 0.70 cm Level 3:1.8 x 1.1 x 0.36 cm. Normal appearance. Previously measured 1.2 x 1.6 x 0.52 cm. US/US soft tiss head and/or neck IMPRESSION: Multiple bilateral cervical neck lymph nodes. Most of these lymph nodes are new and have benign appearance.. Electronically signed by: Jamie Hassan MD 11/26/2024 08:[address] [facility]
== END 2024-11-25 14:18 | disposition home or self-care (01) ==
LOC: HO.US 14:17
PROVIDERS: PCP Family Medicine; Visit Provider Student in an Organized Health Care Education/Training Program
DX: Z85.850 Personal history of malignant neoplasm of thyroid (principal)
CPT/HCPCS: 76536

== ENCOUNTER → 2024-11-25 14:20 | Outpatient (BNV) | payer OTHER, SELFPAY | PROVIDERS: PCP Family Medicine; Visit Provider Radiology Diagnostic Radiology | DX: R59.9 Enlarged lymph nodes, unspecified (principal); Z85.850 Personal history of malignant neoplasm of thyroid | CPT/HCPCS: 76536 ==

== ENCOUNTER 2024-12-06 12:12 | Emergency (ER) | payer OTHER, SELFPAY ==
[2024-12-06 12:25] VITALS: BP 119/58; PULSE 81; RESP 18; TEMP 36.6; O2SAT 98; BMI 31.8
--- NOTE | 2024-12-06 12:25 | ED_ITS ---
HPI - Abdominal Pain General Chief Complaint: Nausea/Vomiting/Diarrhea Stated Complaint: Vomiting, diabetic Time Seen by Provider: 12/06/24 14:09 Source: patient Mode of arrival: ambulatory Limitations: no limitations History of Present Illness ED Provider: Shelli Ahn APRN HPI narrative: 53-year-old female with history of schizoaffective disorder, bipolar disorder, T2DM, thyroid CA with thyroidectomy, COPD, GERD here with complaints of vomiting/diarrhea since 6am. Unable to keep her medications down. BS was 60 at home, had a piece of candy before coming in. Emesis is NBNB, No rectal bleeding or bloody stools. No abdominal pain, fevers, chills, urinary symptoms. Related Data Home Medications ?Medication ?Instructions ?Recorded ?Confirmed lisinopril 2.5 mg tablet 2.5 mg PO DAILY 09/05/20 10/20/24 metformin 500 mg tablet,extended 1,000 mg PO BID 09/05/20 10/20/24 release 24 hr montelukast 10 mg tablet 10 mg PO BEDTIME 09/05/20 10/20/24 (Singulair) tramadol 50 mg tablet (Ultram) 50 mg PO Q8H PRN severe pain 09/05/20 10/20/24 acetaminophen 650 mg 650 mg PO Q8H PRN Pain 04/24/21 10/20/24 tablet,extended release albuterol sulfate 90 mcg/actuation 2 puff inhalation ONCE PRN Wheezing 04/24/21 10/20/24 aerosol inhaler alcohol swabs 0 pad topical DAILY 04/24/21 10/20/24 atorvastatin 40 mg tablet 40 mg PO DAILY 04/24/21 10/20/24 benztropine 1 mg tablet 1 mg PO DAILY 04/24/21 10/20/24 cetirizine 10 mg tablet (Zyrtec) 10 mg PO BEDTIME 04/24/21 10/20/24 fluticasone propionate 110 2 puff inhalation BID 04/24/21 10/20/24 mcg/actuation HFA aerosol inhaler (Flovent HFA) fluticasone propionate 50 2 spray intranasal DAILY PRN 04/24/21 10/20/24 mcg/actuation nasal Allergy Symptoms spray,suspension (Flonase Allergy Relief) glipizide 5 mg tablet 5 mg PO BID 04/24/21 10/20/24 haloperidol 5 mg tablet See Rx Instructions PO BID 04/24/21 10/20/24 methocarbamol 750 mg tablet 750 mg PO TID 04/24/21 10/20/24 bupropion HCl 300 mg 24 hr tablet, 300 mg PO DAILY 06/07/22 10/20/24 extended release pantoprazole 20 mg tablet,delayed 20 mg PO BID 07/02/22 10/20/24 release aripiprazole 20 mg tablet 20 mg PO DAILY 09/24/22 10/20/24 aspirin 81 mg tablet,delayed 81 mg PO DAILY 09/24/22 10/20/24 release bupropion HCl 150 mg 24 hr tablet, 150 mg PO DAILY 09/24/22 10/20/24 extended release clonazepam 1 mg tablet (Klonopin) 1 mg PO BID PRN Anxiety 04/04/23 10/20/24 Previous Rx's ?Medication ?Instructions ?Recorded ferrous sulfate 325 mg (65 mg 325 mg PO DAILY 30 days #30 tabs 05/22/22 iron) tablet,delayed release cefdinir 300 mg capsule 300 mg PO BID 5 days #10 caps 02/12/23 metronidazole 500 mg tablet 500 mg PO BID 7 days #14 tabs 08/07/23 bisacodyl 5 mg tablet,delayed 20 mg (4 x 5 mg) PO ONCE 1 day #4 01/14/24 release (Dulcolax (bisacodyl)) tabs polyethylene glycol 3350 17 238 g PO ONCE 1 day #238 grams 01/14/24 gram/dose oral powder (Miralax) lidocaine 5 % topical patch 1 patch topical DAILY #15 ea 07/06/24 methocarbamol 500 mg tablet 500 mg PO TID #9 tabs 07/06/24 Tirosint-Michelle 200 mcg/mL oral 400 mcg (2 mL) PO DAILY #30 mL 08/17/24 solution (levothyroxine) ondansetron 4 mg disintegrating 4 mg PO Q6H PRN nausea and 12/06/24 tablet vomiting #12 tabs Allergies Allergy/AdvReac Type Severity Reaction Status Date / Time oxycodone [Percocet] Allergy Intermediate stomach Verified 12/06/24 12:26 pain SEASONAL ALLERGIES Allergy Unknown UNKNOWN Uncoded 10/20/24 14:14 Review of Systems Review of Systems Yes all other systems are reviewed and are negative Constitutional: Reports no additional constitutional complaints, Denies body ache(s), Denies chills, Denies fever(s), Denies headache(s) and Denies weakness Eyes: Reports no additional eye complaints and Denies change in vision Reports system reviewed and no additional complaints, except as documented, Denies dizziness, Denies headache(s), Denies nasal congestion, Denies nasal discharge and Denies neck pain Cardiovascular: Reports no additional cardiovascular complaints, Denies chest pain, Denies leg edema and Denies dyspnea Respiratory: Reports no additional respiratory complaints, Denies cough and Denies dyspnea Gastrointestinal: Reports no additional gastrointestinal complaints, Denies abdominal pain, Reports diarrhea, Reports nausea and Reports vomiting Genitourinary: Reports no additional female genitourinary complaints and Denies urinary incontinence Musculoskeletal: Reports no additional musculoskeletal complaints, Denies back pain, Denies arthralgias, Denies joint swelling, Denies neck pain, Denies numbness and Denies tingling Skin/Breast: Reports system reviewed and no additional complaints, except as docu and Denies rash Reports system reviewed and no additional complaints, except as documented, Denies Abnormal speech present, Denies dizziness, Denies headache(s), Denies numbness, Denies tingling and Denies weakness PMFSH Past Medical History Attestation statement: The following information was validated with the patient. Source: old records reviewed and nursing notes reviewed Medical History Incomplete right bundle branch block (RBBB) Uterine fibroid DANIEL (obstructive sleep apnea) Cervical cancer Schizoaffective disorder Pancreatitis Type 2 diabetes mellitus JESICA positive Vitamin D deficiency Postoperative hypothyroidism History of thyroid cancer Morbid obesity Sacroiliitis Multinodular goiter HLD (hyperlipidemia) COPD (chronic obstructive pulmonary disease) GERD (gastroesophageal reflux disease) Bipolar 1 disorder Hypercalcemia Goiter Hypothyroidism Surgical History Hx of total thyroidectomy Hx of tubal ligation Hx of cholecystectomy Family History Family History Father Bipolar 1 disorder Mother Diabetes mellitus Hypertension Hyperlipidemia COPD (chronic obstructive pulmonary disease) Paternal Aunt Breast cancer Sister Cervical cancer Social History Social History Household Members: Spouse and Children Housing: Apartment Alcohol intake: never Patient Tobacco Use Status: Former Tobacco user Tobacco use type: Cigarette Cigarettes Per Day: 2 Substance Use Type: Marijuana Advance Directives: No Advance Directives Information Provided: Yes Do you have a plan to hurt others: No Plan service: No Current occupational status: other 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: Yes (Stress) Physical Exam ED Vital Signs: Vital Signs - 24 hr 12/06/24 12:25 Temperature 97.9 F Pulse Rate 81 Respiratory Rate 18 Blood Pressure 119/58 L Pulse Oximetry 98 Oxygen Delivery Method Room Air BMI result Body Mass Index 31.8 Const General: cooperative, healthy appearing, comfortable and no acute distress Orientation/consciousness: patient oriented x3 Limitations: no limitations HENMT Head: Yes normal to inspection Ears: hearing grossly normal bilaterally General nose exam: Normal external nose present Face and sinus: Yes normal facial exam Mouth: Normal oral and palatal mucosa present Throat: Yes posterior oropharynx normal Eyes General: appearance normal, both eyes and all related structures Pupils: Equal, round and reactive pupils present Neck Neck: Yes normal visual inspection Chest Chest palpation & inspection: normal inspection of the chest Resp Effort & Inspection: normal respiratory effort Auscultation: clear to auscultation bilaterally Cardio Rate: regular rate Rhythm: regular rhythm Peripheral pulses: Peripheral pulses 2+ throughout GI Inspection: Yes normal to inspection Palpation (GI): Soft to palpation and nontender Auscultation: normal bowel sounds Back/Spine/Pelvis Thoracic/Lumbar Spine: thoracic and lumbar spine normal to inspection Skin General skin exam: no rashes or lesions noted Neuro General: patient oriented x3, no focal motor deficits and normal sensation to monofilament Cranial nerves: Yes Equal, round and reactive pupils present Cognition (Neuro): normal cognition Speech: No Abnormal speech present Gait exam (Neuro): Normal gait present Motor exam (neuro): 5/5 motor strength present throughout Extrem General: Yes normal to inspection Course Course Course Narrative: This is a rapid medical exam. Deferred additional HPI, ROS, PE to primary provider. 54-year-old female with history of schizoaffective disorder, bipolar disorder, T2DM, thyroid CA with thyroidectomy, COPD, GERD here with complaints of vomiting/diarrhea since 6am. Unable to keep her medications down. BS was 60 at home, had a piece of candy before coming in. POC in triage-160 Will obtain labs, UA, viral testing. Will give 4mg SL zofran -Raul Ahn aPRN Reevaluation(s) Reevaluation #1: Patient tolerated 8 ounces of ben del and 4 crackers, nausea improved, feels good and wants to go home. Reviewed labs/serology. Likely viral syndrome. Recommend prn antiemetic, supportive measures. Reviewed worrisome signs/symptoms with patient and when to seek additional care. Comfortable with discharge home. Medical Decision Making Medical Decision Making MDM Narrative: 53-year-old female with history of schizoaffective disorder, bipolar disorder, T2DM, thyroid CA with thyroidectomy, COPD, GERD here with complaints of vomiting/diarrhea since 6am. Unable to keep her medications down. BS was 60 at home, had a piece of candy before coming in. Emesis is NBNB, No rectal bleeding or bloody stools. No abdominal pain, fevers, chills, urinary symptoms. No focal abdomial pain. +BS. Will obtain labs, viral testing, urine testing Will give SL zofran and re-assess Differential Diagnosis Differential Diagnoses: The differential diagnosis associated with the presentation includes gastroenteritis, influenza, viral syndrome Low suspicion for SBO, acute appendicitis, diverticulitis, renal colic pyelonephritis Admission/Observation Consideration of admission/observation: Escalation of care including admission/observation considered Low suspicion for SBO, acute appendicitis, diverticulitis, renal colic pyelonephritis requiring CT imaging, and or admission or consultation Lab Data [facility] Lab Attestation statement: I reviewed the patient's lab results. 12/06/24 12:50 12/06/24 12:50 Labs: Lab Results 12/06/24 12/06/24 Range/Units 12:30 12:50 WBC 11.3 H (4.8-10.8) X10*3/uL RBC 4.94 (4.20-5.50) X10*6/uL Hgb 13.8 (12.0-16.0) g/dl Hct 41.6 (37.0-47.0) % MCV 84.2 (80.0-98.0) fL MCH 27.9 (27.0-33.0) pg MCHC 33.2 (31.0-35.0) g/dl RDW 13.9 (11.0-16.0) % Plt Count 327 (160-400) X10*3/uL MPV 9.7 (9.4-12.3) fL Immature Gran % (Auto) 0.5 H (0.0-0.4) % Neut % (Auto) 71.7 (45-73) % Lymph % (Auto) 20.7 (20-40) % [place] % (Auto) 5.6 (2-11) % Eos % (Auto) 1.1 (0-4) % Baso % (Auto) 0.4 (0-2) % Lymph # (Auto) 2.4 (1.2-4.9) X10*3/uL [place] # (Auto) 0.6 (0.1-1.2) X10*3/uL Eos # (Auto) 0.1 (0.0-0.4) X10*3/uL Baso # (Auto) 0.0 (0.0-0.2) X10*3/uL Abs Immat Gran (auto) 0.06 H (0.00-0.03) X10*3/uL Absolute Neuts (auto) 8.1 (2.0-8.3) x10*3/uL Absolute Nucleated RBC 0.000 (0.0-0.012) X10*3/uL Nucleated RBC % (auto) 0.0 (0.0-0.2) /100WBC Sodium 143 (135-145) mmol/L Potassium 4.4 (3.3-5.1) mmol/L Chloride 103 (96-108) mmol/L Carbon Dioxide 30 H (22-29) mmol/L Anion Gap 14 (12-20) BUN 13 (9-16) mg/dL Creatinine 1.10 (0.5-1.4) mg/dL Estim Creat Clear Calc 69.7 Estimated GFR 52 POC Glucose 160 H (60-115) mg/dL Random Glucose 170 H (60-115) mg/dL Calcium 9.5 (8.4-10.2) mg/dL Total Bilirubin 0.2 (0.0-1.0) mg/dL Direct Bilirubin < 0.2 (0.0-0.5) mg/dL AST 23 (5-31) U/L ALT 26 (0-31) U/L Alkaline Phosphatase 92 (39-117) U/L Total Protein 8.1 H (6.5-8.0) g/dL Albumin 4.4 (3.5-5.0) g/dL Urine Color Yellow Urine Appearance Clear Urine pH 7.5 (5.0-9.0) Ur Specific [place] 1.015 (1.005-1.025) Urine Protein Trace (Neg-Trace) mg/dL Urine Glucose (UA) Negative (Negative) mg/dL Urine Ketones Negative (Negative) mg/dL Urine Blood Negative (Negative) Urine Nitrite Negative (Negative) Ur Leukocyte Esterase Small (1+) H (Negative) Urine RBC 0-2 (0-2) /HPF Urine WBC 11-20 H (0-5) /HPF Ur Squamous Epith Cells 0-2 (0-2) /HPF Urine Bacteria Trace (None Seen) Hyaline Casts 0-2 (0-2) /LPF Influenza Type A (PCR) NEGATIVE (Negative) Influenza Type B (PCR) NEGATIVE (Negative) RSV RNA Qual (PCR) NEGATIVE (Negative) SARS-CoV-2 RNA (RT-PCR) NEGATIVE (Negative) Tests considered The following testing was considered but not selected: No focal abdominal to suggest need for CT imaging Prescription Management I considered prescription management with: Antibiotic Medications Administered Discontinued Medications Generic Name Dose Route Start Last Admin Trade Name Freq PRN Reason Stop Dose Admin Ondansetron HCl 4 mg 12/06/24 12:26 12/06/24 12:32 Ondansetron Odt 4 Mg Tab.Rapdis TRANSLINGU 12/06/24 12:27 4 mg ONCE ONE Administration Discharge Plan Discharge Clinical Impression: Vomiting Patient Disposition: Home, Self-Care Instructions: Acute Nausea and Vomiting (ED) Additional Instructions: Testing for flu, covid and rsv are negative Blood work is reassuring Start with clear liquids then advance diet as tolerated Prescriptions: New ondansetron 4 mg tablet,disintegrating 4 mg PO Q6H PRN (Reason: nausea and vomiting) Qty: 12 0RF No Action ferrous sulfate 325 mg (65 mg iron) tablet,delayed release (DR/EC) 325 mg PO DAILY 30 Days Qty: 30 1RF metronidazole 500 mg tablet 500 mg PO BID 7 Days Qty: 14 0RF bisacodyl [Dulcolax (bisacodyl)] 5 mg tablet,delayed release (DR/EC) 20 mg PO ONCE 1 Days Qty: 4 0RF Rx Instructions: take at noon the day before colonoscopy polyethylene glycol 3350 [Miralax] 17 gram/dose powder 238 g PO ONCE 1 Days Qty: 238 0RF Rx Instructions: Take as directed by mouth the day before your procedure. Tirosint-Michelle 200 mcg/mL solution 400 mcg PO DAILY Qty: 30 5RF lidocaine 5 % adhesive patch,medicated 1 patch topical DAILY Qty: 15 0RF Rx Instructions: leave on most painful area for up to 12 hrs methocarbamol 500 mg tablet 500 mg PO TID Qty: 9 0RF cefdinir 300 mg capsule 300 mg PO BID 5 Days Qty: 10 0RF lisinopril 2.5 mg tablet 2.5 mg PO DAILY metformin 500 mg tablet extended release 24 hr 1,000 mg PO BID montelukast [Singulair] 10 mg tablet 10 mg PO BEDTIME tramadol [Ultram] 50 mg tablet 50 mg PO Q8H PRN (Reason: severe pain) atorvastatin 40 mg tablet 40 mg PO DAILY acetaminophen 650 mg tablet extended release 650 mg PO Q8H PRN (Reason: Pain) albuterol sulfate 90 mcg/actuation HFA aerosol inhaler 2 puff inhalation ONCE PRN (Reason: Wheezing) haloperidol 5 mg tablet See Rx Instructions PO BID Rx Instructions: 1/2 tab am, 1/2 tab pm PO 2 times a day; clonazepam [Klonopin] 1 mg tablet 1 mg PO BID PRN (Reason: Anxiety) benztropine 1 mg tablet 1 mg PO DAILY methocarbamol 750 mg tablet 750 mg PO TID Flovent HFA 110 mcg/actuation HFA aerosol inhaler 2 puff inhalation BID fluticasone propionate [Flonase Allergy Relief] 50 mcg/actuation spray,suspension 2 spray intranasal DAILY PRN (Reason: Allergy Symptoms) cetirizine [Zyrtec] 10 mg tablet 10 mg PO BEDTIME glipizide 5 mg tablet 5 mg PO BID alcohol swabs Pads, Medicated 0 pad topical DAILY pantoprazole 20 mg tablet,delayed release (DR/EC) 20 mg PO BID bupropion HCl 300 mg tablet extended release 24 hr 300 mg PO DAILY aspirin 81 mg tablet,delayed release (DR/EC) 81 mg PO DAILY aripiprazole 20 mg tablet 20 mg PO DAILY bupropion HCl 150 mg tablet extended release 24 hr 150 mg PO DAILY Referrals: Linda Murphy DO [Primary Care Provider] - 1 week Print Language: Italian
[2024-12-06] MEDS: Ondansetron ODT 4 MG TAB.RAPDIS TRANSLINGU (12:32)
[2024-12-06 12:36] LABS: Glucose, Whole Blood 160 mg/dL (60-115)
[2024-12-06 13:06] LABS: MANUAL DIFF FLAG NO
[2024-12-06 13:10] LABS: Basophils Percent Auto 0.4 % (0-2); Eosinophils Absolute Auto 0.1 X10*3/uL (0.0-0.4); Eosinophils Percent Auto 1.1 % (0-4); Hematocrit 41.6 % (37.0-47.0); Hemoglobin 13.8 g/dl (12.0-16.0); Imm Gran Abs Auto 0.06 X10*3/uL (0.00-0.03); Imm Gran Pct Auto 0.5 % (0.0-0.4); Lymphocytes Absolute Auto 2.4 X10*3/uL (1.2-4.9); Lymphocytes Percent Auto 20.7 % (20-40); Mean Corpuscular HGB Conc 33.2 g/dl (31.0-35.0); Mean Corpuscular Hemoglobin 27.9 pg (27.0-33.0); Mean Corpuscular Volume 84.2 fL (80.0-98.0); Mean Platelet Volume 9.7 fL (9.4-12.3); Monocytes Absolute Auto 0.6 X10*3/uL (0.1-1.2); Monocytes Percent Auto 5.6 % (2-11); Neutrophils Absolute Auto 8.1 x10*3/uL (2.0-8.3); Neutrophils Percent Auto 71.7 % (45-73); Platelet Count 327 X10*3/uL (160-400); Red Blood Count 4.94 X10*6/uL (4.20-5.50); Red Cell Distribution Width 13.9 % (11.0-16.0); White Blood Count 11.3 X10*3/uL (4.8-10.8)
[2024-12-06 13:17] LABS: Appearance Urine Clear; Color Urine Yellow; Glucose Urine UA Negative (Negative); Leukocyte Esterase Urine Small (1+) (Negative); Nitrite Urine Negative (Negative); PH 7.5 (5.0-9.0); Specific Gravity - Urine 1.015 (1.005-1.025); UMIC TRIGGER UACC YES; Urine Blood Negative (Negative); Urine Ketones Negative (Negative); Urine Protein Trace mg/dL (Neg-Trace)
[2024-12-06 13:23] LABS: Bacteria Urine Trace (None Seen); Hyaline Casts Urine 0-2 /LPF (0-2); RBC Urine 0-2 /HPF (0-2); Squamous Epithelial Cell Urine 0-2 /HPF (0-2); UACC Culture Trigger YES
[2024-12-06 13:27] LABS: Alanine Aminotransferase 26 U/L (0-31); Albumin Level 4.4 g/dL (3.5-5.0); Anion Gap 14 (12-20); Aspartate Amino Transferase 23 U/L (5-31); Bilirubin Direct < 0.2 mg/dL (0.0-0.5); Bilirubin Total 0.2 mg/dL (0.0-1.0); Blood Urea Nitrogen 13 mg/dL (9-16); Calcium 9.5 mg/dL (8.4-10.2); Carbon Dioxide 30 mmol/L (22-29); Chloride 103 mmol/L (96-108); Creatinine Clr Calc Pharmacy 69.7; Estimated Glomerular Filt Rate 52; Glucose Random 170 mg/dL (60-115); Potassium 4.4 mmol/L (3.3-5.1); Sodium 143 mmol/L (135-145); Total Protein 8.1 g/dL (6.5-8.0)
[2024-12-06 13:35] LABS: Alkaline Phosphatase 92 U/L (39-117)
[2024-12-06 13:51] LABS: Influenza A PCR NEGATIVE (Negative); Influenza B PCR NEGATIVE (Negative); Resp Syncy Virus RNA Qual PCR NEGATIVE (Negative); SARS COV2 PCR INHOUSE NEGATIVE (Negative)
[2024-12-06 14:28] VITALS: BP 119/58; PULSE 81; RESP 18; TEMP 36.6; O2SAT 98
== END 2024-12-06 14:29 | disposition home or self-care (01) ==
PROVIDERS: Nurse Practitioner Family; Emergency Provider Emergency Medicine; PCP Family Medicine
DX: R11.2 Nausea with vomiting, unspecified (principal); E11.9 Type 2 diabetes mellitus without complications; R19.7 Diarrhea, unspecified; Z87.891 Personal history of nicotine dependence; Z79.899 Other long term (current) drug therapy; Z03.818 Encounter for observation for suspected exposure to other biological agents ruled out
CPT/HCPCS: 0241U; 80048; 80076; 81001; 82947; 85025; 87086; 99282; 99283

== ENCOUNTER → 2024-12-15 08:42 | Day surgery (SDC) | payer OTHER, SELFPAY ==
--- OUTSIDE RECORDS SUMMARY | 2024-12-15 08:57 | XMS_ITS | Encounter Summary ---
Author Organization [employer] Address [address] [place] [address] 7t [place] [address] Care Team Providers Care Frothing Machine Operator Name Role Phone Linda Murphy DO Primary Care Provider [phone] Dellogono Neri PharmD Unavailable Unavail able Puia Antionette PharmD Unavailable [phone] Reason for Visit * Reason Onset Date Comments Letter for School/Work 03/07/2023 Encounter Details Date Type Department Care Team (Late st Contact Info) Description 03/07/2023 Telephone [facility] MEDICINE [address] [place] [address] Linda Murphy DO [address] [place], [place] [phone] Letter for School/Work Social History Tobacco Use Types Packs/Day Years Used Date Smoking Tobacco: Never Assessed Depression Answer Date Recorded Patient Health Questionnaire-9 Score 0 02/26/2023 Depression Answer Date Recorded Patient Health Questionnaire-2 Score 0 02/26/2023 Comments Unknown Sex and Gender Information Value Date Recorded Sex Assigned at Female 09/10/2022 10:14 AM EDT Legal Sex Female 10:14 AM EDT Gender Identity Female 09/10/2022 10:14 AM EDT Sexual Orientation Choose not to disclose 2021 10:14 AM EDT COVID-19 Exposure Response Date Recorded In the last 10 days, have yo u been in contact with someone who was confirmed or suspected to have Coronavirus/COVID-19? No / Unsure 02/26/2023 11:07 AM EDT documented as of this encounter Miscellaneous Notes * Telephone Encounter - Andrzej Ledesma - 03/07/2023 10:01 AM EDT Tc from pt requesting a letter stating that pt uses oxygen. Pt was transferred to medical records and medical records transfer back. Pt is asking for letter to mailed due to COVID Please contact at [phone] documented in this encounter Plan of Treatment Upcoming Encounters Date Type Department Care Team (Late st Contact Info) Description 12/21/2024 10:30 AM EST Office Visit [address] [address] Linda Murphy DO [address] [place] [address] 12/29/2024 10:30 AM EST Clinical Support [address] [address] No Lopez, KRYSTYNA documented as of this encounter Goals Goal Patient Goal Type Associated Problems Recent Progress Patient-Stated? Author Hemoglobin A1c < 7 Result Component 7.4(08/13/2024 3:26 PM EDT) No Neri Yang, PharmJeffery documented as of this encounter Visit Diagnoses Not on filedocumented in this encounter Additional Health Concerns Assessment Noted Time PHQ-9 Depression Total Score: 0 02/27/20 23 11:42 AM EDT documented as of this encounter Care Teams Frothing Machine Operator Relationship Specialty Start Date End Date Lnida Murphy DO [address] [place] [address] PCP - General Family Medicine 11/24/12 Neri Yang, PharmD [address] [place] [address] Pharmacist Internal Medicine 11/23/22 10/17/23 Antionette Murphy PharmD [address] [place] [address] Pharmacist Internal Medicine 07/15/24 documented as of this encounter
--- OUTSIDE RECORDS SUMMARY | 2024-12-15 08:57 | XMS_ITS | Encounter Summary ---
Author Organization [facility] [facility] Address [address] [place] [address] 7t [place] [address] Care Team Providers Care Surface Logging Systems Logger Name Role Phone Linda Murphy DO Primary Care Provider Dellogono Neri PharmD Unavailable Unavail able Puia Antionette PharmD Unavailable Reason for Visit * Reason Comments Med Refill Encounter Details Date Type Department Care Team (Late st Contact Info) Description 04/05/2023 Refill [facility] [address] [place] [address] Linda Murphy DO [address] [place] [address] Social History Tobacco Use Types Packs/Day Years [...] suspected to have Coronavirus/COVID-19? No / Unsure 03/20/2023 9:20 AM EDT documented as of this encounter Plan of Treatment Upcoming Encounters Date Type Department Care Team (Late st Contact Info) Description 12/21/2024 10:30 AM EST Office Visit [facility] [place] [address] [place] [address] 12/29/2024 10:30 AM EST Clinical Support [address] [address] No Lopez, RN documented as of this encounter Goals Goal Patient Goal Type Associated Problems Recent Progress Patient-Stated? Author Hemoglobin A1c < 7 Result Component 7.4(08/13/2024 3:26 PM EDT) No Neri Yang, PharmD documented as of this encounter Visit Diagnoses Not on filedocumented in this encounter Additional Health Concerns Assessment Noted Time PHQ-9 Depression Total Score: 0 02/27/20 23 11:42 AM EDT documented as of this encounter Care Teams Surface Logging Systems Logger Relationship Specialty Start Date End Date Linda Murphy DO [address] [place] [address] PCP - General Family Medicine 11/24/12 Neri Yang, PharmD [address] [place] [address] Pharmacist Internal Medicine 11/23/22 10/17/23 Antionette Murphy PharmD [address] [place] [address] Pharmacist Internal Medicine 07/15/24 documented as of this encounter
--- OUTSIDE RECORDS SUMMARY | 2024-12-15 08:57 | XMS_ITS | Encounter Summary ---
Author Organization [employer] Address [address] [place] [address] 7t [place] [address] Care Team Providers Care Pillow Agent Name Role Phone Linda Murphy DO Primary Care Provider Dellogla Neri PharmD Unavailable Unavail able [place] Antionette PharmD Unavailable Reason for Visit * Reason Comments Med Refill Encounter Details Date Type Department Care Team (Late st Contact Info) Description 04/10/2023 Refill [facility] & PEDS [address] [place] [address] Linda Murphy DO [address] [place] [address] Social History Tobacco Use Types Packs/Day Years [...] Description 12/21/2024 10:30 AM EST Office Visit [facility] [address] Linda Murphy DO [address] [place] [address] 12/29/2024 10:30 AM EST Clinical Support [address] [address] No Lopez, KRYSTYNA documented as of this [...] documented as of this encounter Care Teams Pillow Agent Relationship Specialty Start Date End Date Linda Murphy DO [address] [place] [address] PCP - General Family Medicine 11/24/12 Neri Yang, PharmD [address] [place] [address] Pharmacist Internal Medicine 11/23/22 10/17/23 Antionette Murphy PharmD [address] [place] [address] Pharmacist Internal Medicine 07/15/24 documented as of this encounter
--- OUTSIDE RECORDS SUMMARY | 2024-12-15 08:57 | XMS_ITS | Encounter Summary ---
Author Organization [employer] Address [address] [facility] 7t [place] [address] Care Team Providers Care Cook House Laborer Name Role Phone Linda Murphy DO Primary Care Provider Antionette Murphy PharmD Unavailable Reason for Visit * Reason Comments Med Refill Encounter Details Date Type Department Care Team (Late st Contact Info) Description 07/03/2024 Refill [facility] MEDICINE [address] [place] [address] Linda Murphy DO 230 [place] [address] Tobacco dependence Social History Tobacco Use Types Packs/Day Years Used Date Smoking Tobacco: Every Day Cigarettes Passive Smoke Exposure: Current Smokeless Tobacco: Never Comments:Went from 2 packs d aily to 3 cigarettes daily Alcohol Use Standard Drinks/Week Comments Never 0 (1 standard drink = 0.6 oz pur e alcohol) Depression Answer Date Recorded Patient Health Questionnaire-9 Score 0 02/26/2023 Housing Stability Answer Date Recorded What is your housing situation today? I have christiechristina blanc 08/26/[address] you li ve. Do you have problems with any of the following? None of the above 08/26/2023 Food Insecurity Answer Date Recorded Within the past 12 months, y ou worried that your food would run out before you got money to buy more: Never True 08/26/2023 Within the past 12 months,th e food you bought just didn't last and you didn't have enough money to get more: Never True Transportation Answer Date Recorded In the past 12 months, has l ack of transportation kept you from medical appts, meetings, work or from getting things needed for daily living? No 08/26/2023 Utilities Answer Date Recorded In the past 12 months, has t he electric, gas, oil or water company threatened to shut off services in your home? No 08/26/2023 Depression Answer Date Recorded Patient Health Questionnaire-2 Score 0 02/26/2023 Comments Unknown Sex and Gender Information Value Date Recorded Sex Assigned at Female 09/10/2022 10:14 AM EDT Legal Sex Female 10:14 AM EDT Gender Identity Female 09/10/2022 10:14 AM EDT Sexual Orientation Choose not to disclose 2021 10:14 AM EDT documented as of this encounter Plan of Treatment Upcoming Encounters Date Type Department Care Team (Late st Contact Info) Description 12/21/2024 10:30 AM EST Office Visit [address] [address] Linda Murphy DO [address] [place] [address] 12/29/2024 10:30 AM EST Clinical Support [address] [address] No Lopez, KRYSTYNA documented as of this encounter Goals Goal Patient Goal Type Associated Problems Recent Progress Patient-Stated? Author Hemoglobin A1c < 7 Result Component 7.4(08/13/2024 3:26 PM EDT) No Neri Yang, EricD documented as of this encounter Visit Diagnoses Diagnosis Tobacco dependence Tobacco use disorder documented in this encounter Additional Health Concerns Assessment Noted Time PHQ-9 Depression Total Score: 0 02/27/20 23 11:42 AM EDT documented as of this encounter Care Teams Cook House Laborer Relationship Specialty Start Date End Date Linda Murphy DO [address] [place] [address] PCP - General Family Medicine 11/24/12 Antionette Murphy PharmD [address] [place] [address] Pharmacist Internal Medicine 07/15/24 documented as of this encounter
--- OUTSIDE RECORDS SUMMARY | 2024-12-15 08:57 | XMS_ITS | Clinical Summary ---
Author Organization [address] [facility] Address [address] [place] [address] Phone Care Team Providers Care Stock Manager Name Role Phone Joelle Murphyfer Juanito RAMESH Primary Care Provider [phone] Social History Tobacco Use Types Packs/Day Years Used Date Smoking Tobacco: Never Assessed Sex and Gender Information Value Date Recorded Sex Assigned at Not on file Gender Identity Not on file Sexual Orientation Not on file Plan of Treatment Upcoming Encounters Date Type Department Care Team ([facility] Contact Info) Description 12/29/2024 1:45 PM EST Office Visit Orthopedic Surgery [place] [address] [address] Gutierrez Ruiz DPM [address] [address] Health Maintenance Due Date Last Done Comments Breast Cancer Screening 1972 DTaP,Tdap,and Td Vaccines (1 - Tdap) 1991 Hepatitis B Vaccines (1 of 3 - 19+ 3-dose series) 1991 Cervical Cancer Screening: P ap Smear 1993 Zoster Vaccines (1 of 2) 2022 COVID-19 Vaccine ( - 2023-2 5 season) 2024 Influenza Vaccine (#1) 2024 Colorectal Cancer Screening: Colonoscopy 09/24/2024 Depression Screening 09/24/2024 HIV Screening 09/24/2024 Hepatitis C Screening 09/24/2024 Social Influencers of Health Screening 09/24/2024 HIB Vaccines Aged Out No longer eligi ble based on patient's age to complete this topic HPV Vaccines Aged Out No longer eligi ble based on patient's age to complete this topic Hepatitis A Vaccines Aged Out No long er eligible based on patient's age to complete this topic IPV Vaccines Aged Out No longer eligi ble based on patient's age to complete this topic MMR Vaccines Aged Out No longer eligi ble based on patient's age to complete this topic Meningococcal ACWY Vaccine Aged Out N o longer eligible based on patient's age to complete this topic Pneumococcal Vaccine: Pediat rics (0 to 5 Years) and At-Risk Patients (6 to 64 Years) Aged Out No longer eligible b ased on patient's age to complete this topic RSV Immunization Patients Un keli 20 months Aged Out No longer eligible b ased on patient's age to complete this topic Varicella Vaccines Aged Out No longer eligible based on patient's age to complete this topic Care Teams Stock Manager Relationship Specialty Start Date End Date Linda Murphy DO [address] [place] [address] PCP - General Internal Medicine 04/09/19
--- OUTSIDE RECORDS SUMMARY | 2024-12-15 08:58 | XMS_ITS | Encounter Summary ---
Author Organization [employer] Address [address] [facility] 7t [place] [address] Care Team Providers Care Clinical Psychologist Name Role Phone Linda Murphy DO Primary Care Provider [phone] Antionette Murphy PharmD Unavailable [phone] Reason for Visit * Reason Onset Date Comments Medication Question 11/13/2023 Encounter Details Date Type Department Care Team ([facility] st Contact Info) Description 11/13/2023 Telephone [facility] MEDICINE [address] [place] [address] Linda Murphy DO 230 [place], [place] [phone] Medication Question Social History Tobacco Use Types Packs/Day Years [...] encounter Miscellaneous Notes * Telephone Encounter - Sri Cosmo - 11/13/2023 12:40 PM EST Tc from pt requesting status on a new nasal spray and allergy medication. Spoke with PCP on 11/08 Physical appointment. Please contact pt at [phone] documented in this encounter Plan of Treatment Upcoming Encounters Date Type Department Care Team (Late st Contact Info) Description 12/21/2024 10:30 AM EST Office Visit [address] [address] iLnda Murphy DO [address] [place] [address] 12/29/2024 10:30 AM EST Clinical Support [address] [address] No Lopez RN documented as of this encounter Goals [...] documented as of this encounter Care Teams Clinical Psychologist Relationship Specialty Start Date End Date Linda Murphy DO [address] [place] [address] PCP - General Family Medicine 11/24/12 Antionette Murphy PharmD [address] [place] [address] Pharmacist Internal Medicine 07/15/24 documented as of this encounter
--- OUTSIDE RECORDS SUMMARY | 2024-12-15 08:58 | XMS_ITS | Encounter Summary ---
Author Organization [employer] [facility] Address [address] [place] [address] 7[place] [address] Care Team Providers Care J2Ee Java Developer Name Role Phone Linda Murphy DO Primary Care Provider Dellogla Neri PharmD Unavailable Unavail able [place] Antionette PharmD Unavailable [phone] Reason for Visit * Reason Comments Med Refill Encounter Details Date Type Department Care Team (Late Contact Info) Description 07/08/2023 Refill [facility] MEDICINE [address] [place] [address] Linda Murphy DO [address] [place], [place] [phone] Pain Social History Tobacco Use Types Packs/Day Years Used Date Smoking Tobacco: Every Day Cigarettes Smokeless Tobacco: Never Depression Answer Date Recorded Patient Health Questionnaire-9 [...] Encounters Date Type Department Care Team (Late Contact Info) Description 12/21/2024 10:30 AM EST Office Visit [facility] MEDICINE [address] [place] [address] Linda Murphy DO [address] [place] [address] 12/29/2024 10:30 AM EST Clinical Support [facility] [address] [place] [address] No Lopez, RN documented as of this encounter Goals Goal Patient Goal Type Associated Problems Recent Progress Patient-Stated? Author Hemoglobin A1c < 7 Result Component 7.4(08/13/2024 3:26 PM EDT) No Neri Yang, PharmD documented as of this encounter Visit Diagnoses Diagnosis Pain Generalized pain documented in this encounter Additional Health Concerns Assessment Noted Time PHQ-9 Depression Total Score: 0 02/27/20 23 11:42 AM EDT documented as of this encounter Care Teams J2Ee Java Developer Relationship Specialty Start Date End Date Linda Murphy DO [address] [place] [address] PCP - General Family Medicine 11/24/12 Neri Yang, PharmD [address] [place] [address] Pharmacist Internal Medicine 11/23/22 10/17/23 Antionette Murphy PharmD [address] [place] [address] Pharmacist Internal Medicine 07/15/24 documented as of this encounter
--- OUTSIDE RECORDS SUMMARY | 2024-12-15 08:58 | XMS_ITS | Encounter Summary ---
Author Organization [employer] Address [address] [facility] 7t [place] [address] Care Team Providers Care Crime Lab Technician Name Role Phone Linda Murphy DO Primary Care Provider [phone] Antionette Murphy PharmD Unavailable [phone] Encounter Details Date Type Department Care Team (Late st Contact Info) Description 11/25/2024 Orders Only [facility] External Provider, [facility] Social History Tobacco Use Types Packs/Day Years [...] is your housing situation today? I have christie blanc 08/26/[address] you [...] t he electric, gas, oil or water [employer] threatened to shut off services in your home? No 08/26/2023 Depression Answer Date Recorded Patient Health Questionnaire-2 Score 0 02/26/2023 Comments No Sex and Gender Information Value Date Recorded [...] Description 12/21/2024 10:30 AM EST Office Visit [facility] MEDICINE [address] [place], [place] [phone] Linda Murphy DO [address] [place], [place] [phone] 12/29/2024 10:30 AM EST Clinical Support [facility] [address] [place], [place] [phone] No Lopez, KRYSTYNA documented as of this encounter Goals Goal Patient Goal Type Associated Problems Recent Progress Patient-Stated? Author Hemoglobin A1c < 7 Result Component 7.4(08/13/2024 3:26 PM EDT) No Neri Yang, PharmD documented as of this encounter Procedures Procedure Name Priority Date/Time Associated Diagnosis Comments HEAD NECK SOFT TISSUE Routine 11/25/2024 2:35 PM EST documented in this encounter Results * US Head Neck Soft Tissue (11/25/2024 2:35 PM EST) Anatomical Region Laterality Modality Head, Neck Ultrasound 11/25/2024 2:35 PM EST Narrative 11/26/2024 8:32 AM EST ? [facility] ?[address] ?[place] [address] ? Ultrasound Report ? Signed ? Patient: Sara,Tisha ?MR#: [id number] ?? 61 ? : 1970 ?Acct:[id number] ? Age/Sex: 54 / F ?ADM Date: 01/15/25 ? Loc: HO.US ? Attending Dr: Geneva Candelario MD ? Ordering Physician: Geneva Candelario MD ?? Date of Service: 11/25/24 ?? Procedure(s): US soft tiss head and/or neck ?? Accession Number(s): [id number] ? cc: Linda Murphy DO; Geneva Candelario MD ? EXAMINATION: ?? US SOFT TISSUE NECK. ? CLINICAL INFORMATION: ?? History of malignant neoplasm of thyroid. ? COMPARISON: ?? None available. ? TECHNIQUE: ?? Linear transducer espionza-scale and color Doppler examination with ?? attention to the region of the thyroid. ? FINDINGS: ?? History of prior thyroidectomy with no residual thyroid tissue or mass ?? seen within the thyroid bed. ? There are several lymph nodes noted in the neck. ? Right neck soft tissues: ?? Scattered architecturally normal nodes are present. The nodes show ?? normal fatty hilus, normal cortical thickness and no cystic change or ?? calcification. No abnormal color flow. ? The largest nodes seen are as follows, ?? Level 5A: 0.84 x 0.54 x 0.25 cm. Normal appearance. Not seen previously. ?? Level 2:1.0 x 1.2 x 0.31 cm. Normal appearance. Not seen previously. ?? Level 3:1.2 x 0.9 x 0.30 cm. Has normal appearance. Previously measured ?? 0.71 x 1.0 x 0.52 cm. ?? Level 3:0.80 x 0.90 x 0.60 cm. Normal appearance. Not seen previously. ?? Level 3:0.7x 0.70 x 0.50 cm. Normal appearance. Not seen previously. ?? Level 1B: 0.95 x 1.1 x 0.70 cm. Normal appearance. Not seen previously. ?? Level 1A: 0.76 x 0.73 x 0.47 cm right normal appearance not seen ?? previously. ? Left neck soft tissues: ?? Scattered architecturally normal nodes are present. The nodes show ?? normal fatty hilus, normal cortical thickness and no cystic change or ?? calcification. No abnormal color flow. ? The largest nodes are as follows. ?? Level 1: 0.62 x 0.50 x 0.61 cm. Normal appearance. Previously measured ?? 0.55 x 0.60 x 0.70 cm ?? Level 3:1.8 x 1.1 x 0.36 cm. Normal appearance. Previously measured 1.2 ?? x 1.6 x 0.52 cm. ? US/US soft tiss head and/or neck ?? IMPRESSION: ?? Multiple bilateral cervical neck lymph nodes. Most of these lymph nodes ?? are new and have benign appearance.. ? Electronically signed by: ??Jamie Hassan MD ??11/26/2024 08:29 AM EST RP ? Dictated By: ?Jamie Hassan MD ? Signed By: ?<Electronically signed by Jamie Hassan MD in OV> ?11/26/24 0829 ? DD/ 1435 ? TD/TT: 11/25/24 1450 ? Senior Hr Manager: MSM ? Procedure Note Donotuseinterpreter, Image - 11/26/2024 [place] [address] Ultrasound Report Signed Patient: Ayanna RuiznMR#: [id number] 61 : 1970Acct:[id number] Age/Sex: 54 / FADM Date: 11/25/24 Loc: HO.US Attending Dr: Geneva Candelario MD Ordering Physician: Geneva Candelario MD Date of Service: 11/25/24 Procedure(s): US soft tiss head and/or neck Accession Number(s): [id number] cc: Linda Murphy DO; Geneva Candelario MD EXAMINATION: US SOFT TISSUE NECK. CLINICAL INFORMATION: History of malignant neoplasm of thyroid. COMPARISON: None available. TECHNIQUE: Linear transducer espinoza-scale and color Doppler examination with attention to the region of the thyroid. FINDINGS: History of prior thyroidectomy with no residual thyroid tissue or mass seen within the thyroid bed. There are several lymph nodes noted in the neck. Right neck soft tissues: Scattered architecturally normal nodes are present. The nodes show normal fatty hilus, normal cortical thickness and no cystic change or calcification. No abnormal color flow. The largest nodes seen are as follows, Level 5A: 0.84 x 0.54 x 0.25 cm. Normal appearance. Not seen previously. Level 2:1.0 x 1.2 x 0.31 cm. Normal appearance. Not seen previously. Level 3:1.2 x 0.9 x 0.30 cm. Has normal appearance. Previously measured 0.71 x 1.0 x 0.52 cm. Level 3:0.80 x 0.90 x 0.60 cm. Normal appearance. Not seen previously. Level 3:0.7x 0.70 x 0.50 cm. Normal appearance. Not seen previously. Level 1B: 0.95 x 1.1 x 0.70 cm. Normal appearance. Not seen previously. Level 1A: 0.76 x 0.73 x 0.47 cm right normal appearance not seen previously. Left neck soft tissues: Scattered architecturally normal nodes are present. The nodes show normal fatty hilus, normal cortical thickness and no cystic change or calcification. No abnormal color flow. The largest nodes are as follows. Level 1: 0.62 x 0.50 x 0.61 cm. Normal appearance. Previously measured 0.55 x 0.60 x 0.70 cm Level 3:1.8 x 1.1 x 0.36 cm. Normal appearance. Previously measured 1.2 x 1.6 x 0.52 cm. US/US soft tiss head and/or neck IMPRESSION: Multiple bilateral cervical neck lymph nodes. Most of these lymph nodes are new and have benign appearance.. Electronically signed by: Jamie Hassan MD 11/26/2024 08:29 AM [facility] Dictated By: Jamie Hassan MD Signed By: <Electronically signed by Jamie Hassan MD in OV> 11/26/24 0829 DD/ 1435 TD/TT: 11/25/24 1450 Senior Hr Manager: DAMI [facility] External Provider IMG US PROCEDURES Edited Result - Final documented in this encounter Visit Diagnoses Not on filedocumented in this encounter Additional Health Concerns Assessment Noted Time PHQ-9 Depression Total Score: 0 02/27/20 23 11:42 AM EDT documented as of this encounter Care Teams Crime Lab Technician Relationship Specialty Start Date End Date Linda Murphy DO [address] [place] [phone] PCP - General Family Medicine 11/24/12 Antionette Murphy, Kaiden [address] [place] [phone] Pharmacist Internal Medicine 07/15/24 documented as of this encounter
--- OUTSIDE RECORDS SUMMARY | 2024-12-15 08:58 | XMS_ITS | Encounter Summary ---
Author Organization [email or web address] Address [address] [facility] 7t [place] [address] Care Team Providers Care Steam Meter Reader Name Role Phone Linda Murphy DO Primary Care Provider Antionette Murphy PharmD Unavailable [phone] Encounter Details Date Type Department Care Team (Late st Contact Info) Description 12/06/2024 Orders Only GENERIC EXTERNAL DATA DEPARTMENT Provider, Generic External Data Social History Tobacco Use Types Packs/Day Years [...] t he electric, gas, oil or water [employer] threatened to shut off services in your [...] Description 12/21/2024 10:30 AM EST Office Visit [address] [phone] Linda Murphy DO [address] [place] [address] 12/29/2024 10:30 AM EST Clinical Support [address] [address] No Lopez RN documented as of this encounter Goals Goal Patient Goal Type Associated Problems Recent Progress Patient-Stated? Author Hemoglobin A1c < 7 Result Component 7.4(08/13/2024 3:26 PM EDT) No Neri Yang, Kaiden documented as of this encounter Procedures Procedure Name Priority Date/Time Associated Diagnosis Comments URINALYSIS, COMPLETE, WITH REFLEX TO CULTURE Routine 12/06/2024 12:50 PM EST SARS COV2/INFLUENZA A/B AND RSV RNA QL NAAT Routine 12/06/2024 12:50 PM EST CBC WITH AUTO DIFFERENTIAL Routine 12/06/2024 12:50 PM EST HEPATIC FUNCTION PANEL Routine 12/06/2024 12:50 PM EST BASIC METABOLIC PANEL Routine 12/06/2024 12:50 PM EST GLUCOSE, WHOLE BLOOD Routine 12/06/2024 12:30 PM EST CULTURE, URINE, ROUTINE Routine 12/06/2024 12:00 AM EST documented in this encounter Results * SARS-CoV-2 RNA, Influenza A/B, and RSV RNA, Ql NAAT (12/06/2024 12:50 PM EST) Influenza A PCR NEGATIVE Negative [facility] Influenza B PCR NEGATIVE Negative [facility] Resp Syncy Virus RNA Qual PCR NEGATIVE Negative [facility] SARS COV2 PCR NEGATIVE Negative [facility] Comment:All test results mus t be correlated with clinical findings.Negative results do not preclude SARS-CoV2, influenza Avirus, influenza B virus and/or RSV infectionand should not be used as the sole basis for treatment orother patient management decisions. Negative results must becombined with clinical observations, patient history, andepidemiological information.This test has not been evaluated for monitoring treatment ofinfection.This test has been authorized by the FDA under an EmergencyUse Authorization (EUA) for use by authorized laboratories.Testing performed on the [employer] GeneXpert utilizingreal-time RT-PCR.All SARS CoV2 and positive influenza A/B results arereported to [facility]. 12/06/2024 12:5 0 PM EST 12/06/2024 1:03 PM EST us Generic External Data Provider LAB MICROBIOLOGY - GENERAL ORDERABLES Final Result [facility] [address] [place] [phone] * (ABNORMAL) Basic Metabolic Panel (12/06/2024 12:50 PM EST) Sodium 143 135 - 145 mmol/L [facility] Potassium 4.4 3.3 - 5.1 mmol/L [facility] Chloride 103 96 - 108 mmol/L [facility] Carbon Dioxide 30(H) 22 - 29 mmol/L [facility] Anion Gap 14 12 - 20 [facility] Urea Nitrogen (BUN) 13 9 - 16 mg/dL [facility] Creatinine, Serum 1.10 0.5 - 1.4 mg/dL [facility] Creatinine Clr Calc Pharmacy 69.7 [facility] Comment:Provided height and weight: 170.18 cm,92.1 kg.eGFR (calculated from the MDRD study equation) and eCrCl(calculated from the Cockcroft-Gault equation) are based ondifferent parameters and may not yield comparable results.If eCrCl result is absurd, please check patient'sheight/weight. Estimated Glomerular Filt Rate 52 [facility] Comment:Chronic Kidney Disea se: Estimated GFR < 60 mL/min/1.93t8Mfibtp Kidney Disease: Estimated GFR < 15 mL/min/1.73m2 Glucose 170(H) 60 - 115 mg/dL [facility] Calcium 9.5 8.4 - 10.2 mg/dL [facility] 12/06/2024 12:5 0 PM EST 12/06/2024 1:03 PM EST us Generic External Data Provider LAB BLOOD ORDERAB LES Final Result [facility] [address] [place] [phone] * (ABNORMAL) Hepatic Function Panel (12/06/2024 12:50 PM EST) Bilirubin, Total 0.2 0.0 - 1.0 mg/dL [facility] Bilirubin, Direct <0.2 0.0 - 0.5 mg/dL [facility] Aspartate Amino Transferase 23 5 - 31 U/L [facility] Alanine Aminotransferase 26 0 - 31 U/L [facility] Total Protein 8.1(H) 6.5 - 8.0 g/dL [facility] Albumin Level 4.4 3.5 - 5.0 g/dL [facility] Alkaline Phosphatase 92 39 - 117 U/L [facility] 12/06/2024 12:5 0 PM EST 12/06/2024 1:03 PM EST us Generic External Data Provider LAB BLOOD ORDERAB LES Final Result [facility] [address] [place] [address] [phone] * (ABNORMAL) Urinalysis, Complete, with Reflex to Culture (12/06/2024 12:50 PM EST) Color Urine Yellow [facility] Appearance Urine Clear [facility] PH 7.5 5.0 - 9.0 [facility] Glucose Urine UA Negative Negative mg/dL [facility] Urine Blood Negative Negative [facility] Specific Russell - Urine 1.015 1.005 - 1.025 [facility] Urine Protein Trace Neg-Trace mg/dL [facility] Urine Ketones Negative Negative mg/dL [facility] Nitrite Urine Negative Negative [facility] Leukocyte Esterase Urine Small (1+)(A) Negative [facility] RBC Urine 0-2 0 - 2 /HPF [facility] Urine WBC 11-20(A) 0 - 5 /HPF [facility] Urine Squamous Epithelial Cell 0-2 0 - 2 /HPF [facility] Urine Bacteria Trace None Seen [facility] Hyaline Casts, Urine 0-2 0 - 2 /LPF [facility] 12/06/2024 12:5 0 PM EST 12/06/2024 1:03 PM EST Narrative [facility] - 12/06/2024 1:24 PM EST Urine, Clean Catch us Generic External Data Provider LAB URINE ORDERAB LES Final Result [facility] [address] [place], [place] [phone] * (ABNORMAL) CBC auto differential (12/06/2024 12:50 PM EST) White Blood Count 11.3(H) 4.8 - 10.8 X10*3/uL [facility] Red Blood Count 4.94 4.20 - 5.50 X10*6/uL [facility] Hemoglobin 13.8 12.0 - 16.0 g/dl [facility] Hematocrit 41.6 37.0 - 47.0 % [facility] Mean Corpuscular Volume 84.2 80.0 - 98.0 fL [facility] Mean Corpuscular Hemoglobin 27.9 27.0 - 33.0 pg [facility] Mean Corpuscular HGB Conc 33.2 31.0 - 35.0 g/dl [facility] Red Cell Distribution Width 13.9 11.0 - 16.0 % [facility] Platelet Count 327 160 - 400 X10*3/uL [facility] Mean Platelet Volume 9.7 9.4 - 12.3 fL [facility] Neutrophils Percent Auto 71.7 45 - 73 % [facility] Imm Gran Pct Auto 0.5(H) 0.0 - 0.4 % [facility] Lymphocytes Percent Auto 20.7 20 - 40 % [facility] Monocytes Percent Auto 5.6 2 - 11 % [facility] Eosinophils Percent Auto 1.1 0 - 4 % [facility] Basophils Percent Auto 0.4 0 - 2 % [facility] NRBC Pct Auto 0.0 0.0 - 0.2 /100WBC [facility] Neutrophils Absolute Auto 8.1 2.0 - 8.3 x10*3/uL [facility] Imm Gran Abs Auto 0.06(H) 0.00 - 0.03 X10*3/uL [facility] Lymphocytes Absolute Auto 2.4 1.2 - 4.9 X10*3/uL [facility] Monocytes Absolute Auto 0.6 0.1 - 1.2 X10*3/uL [facility] Eosinophils Absolute Auto 0.1 0.0 - 0.4 X10*3/uL [facility] Basophils Absolute Auto 0.0 0.0 - 0.2 X10*3/uL [facility] NRBC Abs Auto 0.000 0.0 - 0.012 X10*3/uL [facility] 12/06/2024 12:5 0 PM EST 12/06/2024 1:03 PM EST us Generic External Data Provider LAB BLOOD ORDERAB LES Final Result Performing Organization Address [facility] Co de Phone Number [facility] [address] [place] [phone] * (ABNORMAL) Glucose, Whole Blood (12/06/2024 12:30 PM EST) Glucose, Whole Blood 160(H) 60 - 115 mg/dL [facility] Comment:METER #: [id number] 12/06/2024 12:3 0 PM EST 12/06/2024 12:35 PM EST Generic External Data Provider LAB BLOOD ORDERAB LES Final Result Performing Organization Address [facility] Co de Phone Number [facility] [address] [place] [phone] * Culture, Urine, Routine (12/06/2024 12:00 AM EST) Urine Urine specimen obtained by clean catch procedure / Unknown 12/06/2024 12/06/2024 Comment:UACC Narrative [facility] - 12/07/2024 8:13 AM EST Urine Culture Report Result Urine Culture 50,000 to 100,000 cfu/ml Urine Culture Mixed bacterial cabrera characteristic of Urine Culture urogenital contamination. Specimen Source: Urine clean catch Generic External Data Provider LAB MICROBIOLOGY - GENERAL ORDERABLES Final Result Performing Organization Address [facility] Co de Phone Number [facility] [address] [place] [phone] documented in this encounter Visit Diagnoses Not on filedocumented in this encounter Additional Health Concerns Assessment Noted Time PHQ-9 Depression Total Score: 0 02/27/20 23 11:42 AM EDT documented as of this encounter Care Teams Steam Meter Reader Relationship Specialty Start Date End Date Linda Murphy DO [address] [place] [address] PCP - General Family Medicine 11/24/12 Antionette Murphy PharmD [address] [place] [address] Pharmacist Internal Medicine 07/15/24 documented as of this encounter
--- OUTSIDE RECORDS SUMMARY | 2024-12-15 08:58 | XMS_ITS | Encounter Summary ---
Author Organization [employer] Address [address] [facility] 7t [place] [address] Care Team Providers Care Customer Service Sales Associate Name Role Phone Linda Murphy DO Primary Care Provider [phone] Antionette Murphy PharmD Unavailable Reason for Visit * Reason Comments Med Refill Encounter Details Date Type Department Care Team (Late st Contact Info) Description 11/04/2024 Refill [facility] MEDICINE [address] [place] [address] Linda Murphy DO [address] [place] [address] Acute post-traumatic headache, not intractable Social History Tobacco Use Types Packs/Day Years [...] encounter Miscellaneous Notes * Telephone Encounter - Janette Ramires MA - 11/18/2024 2:40 PM EST Spoke with patient schedule Follow Up Biopsy Results for 12/21/24 at 10:30am. documented in this encounter Plan of Treatment Upcoming Encounters Date Type Department Care Team (Late st Contact Info) Description 12/21/2024 10:30 AM EST Office Visit [address] [address] Linda Murphy DO [address] [place] [address] 12/29/2024 10:30 AM EST Clinical Support [address] [address] No Lopez, KRYSTYNA documented as of this encounter Goals Goal Patient Goal Type Associated Problems Recent Progress Patient-Stated? Author Hemoglobin A1c < 7 Result Component 7.4(08/13/2024 3:26 PM EDT) No Neri Yang, PharmD documented as of this encounter Visit Diagnoses Diagnosis Acute post-traumatic headache, not intractable documented in this encounter Additional Health Concerns Assessment Noted Time PHQ-9 Depression Total Score: 0 02/27/20 23 11:42 AM EDT documented as of this encounter Care Teams Customer Service Sales Associate Relationship Specialty Start Date End Date Linda Murphy DO [address] [place] [address] PCP - General Family Medicine 11/24/12 Antionette Murphy PharmD [address] [place] [address] Pharmacist Internal Medicine 07/15/24 documented as of this encounter
--- OUTSIDE RECORDS SUMMARY | 2024-12-15 08:58 | XMS_ITS | Encounter Summary ---
Author Organization [email or web address] Address [address] [place] [address] 7[address] [place] [address] Care Team Providers Care Door Core Assembler Name Role Phone Linda Murphy DO Primary Care Provider DelNeri zavala PharmD Unavailable Unavail able Antionette Murphy PharmD Unavailable Reason for Referral * Imaging (Routine) - Canceled Specialty Diagnoses / Procedures Referred By Rolf pascual Referred To Contact Radiology Diagnoses Hilar mass Procedures CT Chest w/o Contrast Nora Astudillo FNP [address] [place] [address] Phone: tel: fax: [facility] [address] [place] [address] Phone: tel: fax: Referral ID Status Reason Start Date Expiration Date V isits Requested Visits Authorized [id number] Canceled 10/11/2023 10/10/2024 1 1 Encounter Details Date Type Department Care Team (Late st Contact Info) Description 10/11/2023 Orders Only [facility] [address] [place] [address] Nora Astudillo FNP [address] [place] [address] Hilar mass (Primary Dx) Social History Tobacco Use Types Packs/Day Years [...] Description 12/21/2024 10:30 AM EST Office Visit [address] [address] Linda Murphy DO [address] [place] [address] 12/29/2024 10:30 AM EST Clinical Support [address] [address] No Lopez RN Scheduled Orders Name Type Priority Associated Diagnoses Orde r Schedule CT Chest w/o Contrast Imaging Routine Hilar mass Expected: 10/11/2023, Expires: 10/11/2024 documented as of this encounter Goals Goal Patient Goal Type Associated Problems Recent Progress Patient-Stated? Author Hemoglobin A1c < 7 Result Component 7.4(08/13/2024 3:26 PM EDT) No Neri Yang, PharmD documented as of this encounter Visit Diagnoses Diagnosis Hilar mass- Primary documented in this encounter Additional Health Concerns Assessment Noted Time PHQ-9 Depression Total Score: 0 02/27/20 23 11:42 AM EDT documented as of this encounter Care Teams Door Core Assembler Relationship Specialty Start Date End Date Linda Murphy DO [address] [place] [address] PCP - General Family Medicine 11/24/12 Neri Yang, PharmD [address] [place] [address] Pharmacist Internal Medicine 11/23/22 10/17/23 Antionette Murphy PharmD [address] [place] [phone] Pharmacist Internal Medicine 07/15/24 documented as of this encounter
--- OUTSIDE RECORDS SUMMARY | 2024-12-15 08:58 | XMS_ITS | Encounter Summary ---
Author Organization [employer] Address [address] [facility] 7t [place] [address] Care Team Providers Care Assembler Sandal Parts Name Role Phone Linda Murphy DO Primary Care Provider Antionette Murphy PharmD Unavailable Reason for Visit * Reason Onset Date Comments Med Refill 12/01/2024 Encounter Details Date Type Department Care Team (Late st Contact Info) Description 12/01/2024 Refill [facility] [address] [place] [address] Linda Murphy DO [address] [facility] [place] [address] Acute post-traumatic headache, not intractable; Chronic obstructive pulmonary disease, unspecified COPD type (CMS/HCC) Social History Tobacco Use Types Packs/Day Years [...] Description 12/21/2024 10:30 AM EST Office Visit [address] [address] Linda Murphy DO [address] [place] [address] 12/29/2024 10:30 AM EST Clinical Support [address] [address] No Lopez RN documented as of this encounter Goals Goal Patient Goal Type Associated Problems Recent Progress Patient-Stated? Author Hemoglobin A1c < 7 Result Component 7.4(08/13/2024 3:26 PM EDT) No Neri Yang, PharmD documented as of this encounter Visit Diagnoses Diagnosis Acute post-traumatic headache, not intractable Chronic obstructive pulmonary disease, unspecified COPD type (CMS/HCC) documented in this encounter Additional Health Concerns Assessment Noted Time PHQ-9 Depression Total Score: 0 02/27/20 23 11:42 AM EDT documented as of this encounter Care Teams Assembler Sandal [employer] Relationship Specialty Start Date End Date Linda Murphy DO [address] [place] [address] PCP - General Family Medicine 11/24/12 Antionette Murphy, Kaiden [address] [place] [phone] Pharmacist Internal Medicine 07/15/24 documented as of this encounter
--- OUTSIDE RECORDS SUMMARY | 2024-12-15 08:58 | XMS_ITS | Encounter Summary ---
Author Organization [employer] Address [address] [facility] 7t [place] [address] Care Team Providers Care [facility] [facility] [employer] Assembler Name Role Phone Linda Murphy DO Primary Care Provider Neri Yang PharmD Unavailable Unavail able Antionette Murphy PharmD Unavailable [phone] Reason for Visit * Reason Onset Date Comments Results 10/08/2023 Encounter Details Date Type Department Care Team ([facility] st Contact Info) Description 10/08/2023 Telephone [facility] MEDICINE [address] [place] [address] Linda Murphy DO [address] [place] [address] Results Social History Tobacco Use Types Packs/Day Years [...] your housing situation today? I have christie jayashree 08/26/[address] you li [...] encounter Miscellaneous Notes * Telephone Encounter - Sae Tian - 10/08/2023 4:19 PM EST Tc from from pt requesting x-ray results. She was seen at urgent care yesterday 10/07/2023 but was transferred [facility]. documented in this encounter Plan of Treatment Upcoming Encounters Date Type Department Care Team (Late st Contact Info) Description 12/21/2024 10:30 AM EST Office Visit [address] [address] Lnida Murphy DO [address] [place] [address] 12/29/2024 10:30 AM EST Clinical Support [address] [address] No Lopez RN documented as of this encounter Goals Goal Patient Goal Type Associated Problems Recent Progress Patient-Stated? Author Hemoglobin A1c < 7 Result Component 7.4(08/13/2024 3:26 PM EDT) No Neri Yang, PharmD documented as of this encounter Visit Diagnoses Not on filedocumented in this encounter Additional Health Concerns Assessment Noted Time PHQ-9 Depression Total Score: 0 02/27/20 11:42 AM EDT documented as of this encounter Care Teams [facility] [facility] Products Assembler Relationship Specialty Start Date End Date Linda Murphy DO [address] [place] [address] PCP - General Family Medicine 11/24/12 Neri Yang, EricD [address] [place] [address] Pharmacist Internal Medicine 11/23/22 10/17/23 Antionette Murphy PharmD [address] [place] [address] Pharmacist Internal Medicine 07/15/24 documented as of this encounter
--- OUTSIDE RECORDS SUMMARY | 2024-12-15 08:58 | XMS_ITS | Encounter Summary ---
Author Organization [employer] Address [address] [facility] 7t [place] [address] Care Team Providers Care Analytical Lab Analyst Name Role Phone Linda Murphy DO Primary Care Provider [phone] Antionette Murphy PharmD Unavailable Encounter Details Date Type Department Care Team ([facility] st Contact Info) Description 12/07/2024 Telephone [facility] MEDICINE [address] [place] [address] Linda Murphy DO [address] [place] [address] Social History Tobacco Use Types Packs/Day Years [...] encounter Miscellaneous Notes * Telephone Encounter - Savannah Ross RN - 12/11/2024 8:47 AM EST Called pt. To offer appt. With PCP for today at 1030am. Pt declines stating her reflux is much better under control and she will wait until her scheduled appt on 12/21/24 at 1030am with PCP to discuss. * Telephone Encounter - Savannah Ross RN - 12/07/2024 1:44 PM EST Pt. States that she went to the hospital for her nausea and she was given Zofran for nausea but, pt. States that she needs medication for heartburn because she is burping up stomach acid. Pt. States I don't have a gall bladder and recently my heartburn has been causing me acid reflux. Pt. Is not on any medication for acid reflux and would like some prescribed to see if it helps. Pt states getting heart burn approx 3 times a week. Advised to cut down on spicy foods, greasy foods etc. Advised will keep pt. In my in basket and try to book appt. For 12/11/24 in a sick on site slot if it is not taken. I will call pt. Either way as she states that she wants an appt. But, also does have upcoming appt. On 12/21/24 with PCP. Protocol Used: Abdominal Pain - Upper (Adult) Protocol-Based Disposition: See in Office or Video Visit within 2 Weeks Video visit not offered Positive Triage Question: * Intermittent pains shoot into chest, with sour taste in mouth (Exception: Symptoms same as previously diagnosed reflux and not tried antacids.) * All higher-acuity triage questions were negative Care Advice Discussed: * Antacid Medicine * Drink Clear Fluids * Diet * Avoid Aspirin and NSAIDs * Stop Smoking * Food Recommendations to Reduce Reflux documented in this encounter Plan of Treatment Upcoming Encounters Date Type Department Care Team (Late st Contact Info) Description 12/21/2024 10:30 AM EST Office Visit [address] [address] Linda Murphy DO [address] [place] [address] 12/29/2024 10:30 AM EST Clinical Support [address] [address] No Lopez, KRYSTYNA documented as of this encounter Goals Goal Patient Goal Type Associated Problems Recent Progress Patient-Stated? Author Hemoglobin A1c < 7 Result Component 7.4(08/13/2024 3:26 PM EDT) No Neri Yang PharmD documented as of this encounter Visit Diagnoses Not on filedocumented in this encounter Additional Health Concerns Assessment Noted Time PHQ-9 Depression Total Score: 0 02/27/20 23 11:42 AM EDT documented as of this encounter Care Teams Analytical Lab Analyst Relationship Specialty Start Date End Date Linda Murphy DO [address] [place] [address] PCP - General Family Medicine 11/24/12 Antionette Murphy PharmD [address] [place] [address] Pharmacist Internal Medicine 07/15/24 documented as of this encounter
--- OUTSIDE RECORDS SUMMARY | 2024-12-15 08:58 | XMS_ITS | Encounter Summary ---
Author Organization [employer] Address [address] [facility] 7t [place] [address] Care Team Providers Care Seater Grinder Name Role Phone Linda Murphy DO Primary Care Provider [phone] Antionette Murphy PharmD Unavailable Reason for Visit * Reason Comments Med Refill Encounter Details Date Type Department Care Team (Late st Contact Info) Description 02/23/2024 Refill [facility] MEDICINE [address] [place] [address] Linda Murphy DO [address] [place] [address] Chronic obstructive pulmonary disease, unspecified COPD type (CMS/HCC); Pain Social History Tobacco Use Types Packs/Day [...] Description 12/21/2024 10:30 AM EST Office Visit [address] [address] Linda Murphy DO [address] [place] [address] 12/29/2024 10:30 AM EST Clinical Support [address] [address] No Lopez, KRYSTYNA documented as of this encounter Goals Goal Patient Goal Type Associated Problems Recent Progress Patient-Stated? Author Hemoglobin A1c < 7 Result Component 7.4(08/13/2024 3:26 PM EDT) No Neri Yang, PharmD documented as of this encounter Visit Diagnoses Diagnosis Chronic obstructive pulmonary disease, unspecified COPD type (CMS/HCC) Pain Generalized pain documented in this encounter Additional Health Concerns Assessment Noted Time PHQ-9 Depression Total Score: 0 02/27/20 23 11:42 AM EDT documented as of this encounter Care Teams Seater Grinder Relationship Specialty Start Date End Date Linda Murphy DO [address] [place] [address] PCP - General Family Medicine 11/24/12 Antionette Murphy, PharmD [address] [place] [address] Pharmacist Internal Medicine 07/15/24 documented as of this encounter
--- OUTSIDE RECORDS SUMMARY | 2024-12-15 08:58 | XMS_ITS | Encounter Summary ---
Author Organization [employer] Address [address] [facility] [address] [place] [address] [address] Care Road Advisor Name Role Phone Linda Murphy DO Primary Care Provider [phone] Antionette Murphy PharmD Unavailable [phone] Reason for Visit * Reason Onset Date Comments Durable Medical Equipment 03/06/2024 Encounter Details Date Type Department Care Team (Late st Contact Info) Description 03/06/2024 Telephone [facility] [address] [place] [address] Linda Murphy DO [address] [place] [address] Durable Medical Equipment Social History Tobacco Use Types Packs/Day Years [...] encounter Miscellaneous Notes * Telephone Encounter - Dalia Brooks - 03/06/2024 12:33 PM EDT TC from pt requesting a DME humidifier documented in this encounter Plan of Treatment Upcoming Encounters Date Type Department Care Team (Late st Contact Info) Description 12/21/2024 10:30 AM EST Office Visit [address] [id number] Linda Murphy DO [address] [place] [id number] 12/29/2024 10:30 AM EST Clinical Support [address] [address] No Lopez, [email or web address] documented as of this [...] documented as of this encounter Care Teams Road Advisor Relationship Specialty Start Date End Date Linda Murphy DO [address] [place] [address] PCP - General Family Medicine 11/24/12 Antionette Murphy, [place] [address] [place] [address] Pharmacist Internal Medicine 07/15/24 documented as of this encounter
--- OUTSIDE RECORDS SUMMARY | 2024-12-15 08:58 | XMS_ITS | Encounter Summary ---
Author Organization [employer] Address [address] [facility] [address] [place] [address] Care Team Providers Care Erp Specialist Name Role Phone Linda Murphy DO Primary Care Provider Antionette Murphy PharmD Unavailable Reason for Visit * Reason Comments Med Refill Encounter Details Date Type Department Care Team (Late st Contact Info) Description 11/14/2024 Refill [facility] [address] [place] [address] Linda Murphy DO [address] [place] [address] Social History Tobacco Use Types Packs/Day Years [...] Description 12/21/2024 10:30 AM EST Office Visit [address] [address] Linda Murphy DO [address] [place] [id number] 12/29/2024 10:30 AM EST Clinical Support [address] [address] No Lopez, [email or web address] documented as of this [...] documented as of this encounter Care Teams Erp Specialist Relationship Specialty Start Date End Date Linda Murphy DO [address] [place] [id number] PCP - General Family Medicine 11/24/12 Antioentte Murphy PharmD [address] [place] [id number] Pharmacist Internal Medicine 07/15/24 documented as of this encounter
--- OUTSIDE RECORDS SUMMARY | 2024-12-15 08:58 | XMS_ITS | Clinical Summary ---
Author Organization [employer] Address [address] [place] [address] [address] [place] [address] Care Team Providers Care Addiction Medicine Physician Name Role Phone Linda Murphy DO Primary Care Provider PuAntionette ellison PharmD Unavailable [phone] Allergies Active Allergy Reactions Criticality Noted Date Comments Oxycodone 05/04/2013 Other reaction(s): Stomach Pain Medications COVID-19 At Home Antigen Test (QuickVue At-Home Covid-19 Test) kit 1 kit 1 (one) time. 11/17/19 22 Active buPROPion XL (Wellbutrin XL) 300 MG 24 hr tablet Take 1 tablet by mouth in the morning. Active buPROPion XL (Wellbutrin XL) 150 MG 24 hr tablet Take 1 tablet by mouth in the morning. Active traZODone (Desyrel) 100 MG tablet Take 1 tablet by mouth after breakfast and after evening meal. Active clonazePAM (KlonoPIN) 1 MG tablet Take 1 tablet by mouth in the morning, at noon, and at bedtime. Active haloperidol (Haldol) 5 MG tablet Take 0.5 tablets by mouth in the morning and at bedtime. Active ARIPiprazole (Abilify) 20 MG tablet Take 1 tablet by mouth 1 (one) time each day. Active Tirosint-ROBERT 200 MCG/ML solution TAKE 2mLs (400mcg) BY MOUTH ONCE DAILY 11/19/19 23 Active Flovent HFA 110 MCG/ACT inhalerIndicat ions:Chronic obstructive pulmonary disease, unspecified COPD type (CMS/HCC) INHALE 1 PUFF BY MOUTH TWICE DAILY IN THE MORNING AND IN THE EVENING 12 g 11 01/17/20 23 Active Lubricants (K-Y Jelly) gel Apply desired amount topically to vaginal area as needed for dryness 113 g 11 02/27/20 23 Active Tirosint-ROBERT 150 MCG/ML solution 11/01/20 23 Active clotrimazole (Lotrimin) 1 % creamIndicatio ns:Tinea APPLY TO AFFECTED AREA(S) AND SURROUNDING AREA(S) TWICE DAILY IN THE MORNING AND EVENING 60 g 2 01/21/20 24 Active lisinopril 2.5 MG tablet TAKE 1 TABLET BY MOUTH EVERYDAY AT NOON 90 tablet 3 01/23/20 24 Active Ferrocite 324 MG tablet TAKE 1 TABLET BY MOUTH TWICE DAILY AT NOON AND IN THE EVENING WITH VITAMIN C 180 tablet 3 01/23/20 24 Active Vit-Fe Fumarate-FA ( Vitamins) 28-0.8 MG tablet TAKE 1 TABLET BY MOUTH EVERYDAY AT NOON 90 tablet 3 01/23/20 24 Active Ascorbic Acid (vitamin C) 250 MG tablet TAKE 1 TABLET BY MOUTH TWICE DAILY AT NOON AND IN THE EVENING WITH IRON 180 tablet 3 01/23/20 24 Active pantoprazole (ProtoNix) 20 MG EC tabletIndicati ons:Chronic GERD TAKE 1 TABLET BY MOUTH TWICE DAILY AT NOON AND IN THE EVENING 180 tablet 3 01/24/20 24 Active Mometasone Furoate (Asmanex HFA) 100 MCG/ACT aerosol Inhale 1 puff 2 times daily. 13 g 11 01/28/20 24 Active naloxone (Narcan) 4 mg/0.1 mL nasal spray Administer 1 spray (4 mg) into affected nostril(s) if needed for opioid reversal. 2 each 3 03/06/20 24 Active nicotine (Nicoderm CQ) 14 MG/24HR patchIndicatio ns:Tobacco dependence Place 1 patch on the skin 1 times each day at the same time for 6 weeks 30 patch 1 05/06/20 24 Active montelukast (Singulair) 10 MG tablet TAKE 1 TABLET BY MOUTH EVERY EVENING 90 tablet 3 05/15/20 24 Active Blood Glucose Monitoring Suppl (FreeStyle Lite) deviceIndicati ons:Type 2 diabetes mellitus without complication, without long-term current use of insulin (CMS/HCC) Inject 1 each under the skin 2 times daily. Use to test blood sugar twice daily, as directed 1 each 07/15/20 24 Active Diclofenac Sodium 1 % gel Apply 2 g topically if needed in the morning, at noon, in the evening, and at bedtime (pain). 150 g 3 07/15/20 24 Active baclofen (Lioresal) 10 MG tablet Take 1 tablet (10 mg) by mouth if needed in the morning, at noon, and at bedtime for muscle spasms. 60 tablet 3 07/15/20 24 025 Active naproxen (Naprosyn) 500 MG tablet Take 1 tablet (500 mg) by mouth if needed in the morning and at bedtime for mild pain. 30 tablet 07/15/20 24 025 Active lidocaine (Lidoderm) 5 % patchIndicatio ns:Acute post-traumatic headache, not intractable APPLY 1 TO 2 PATCHES TOPICALLY TO SKIN, LEAVE ON FOR 12 HOURS AND OFF FOR 12 HOURS DIRECTED 60 patch 3 07/15/20 24 Active ipratropium-al buterol (Duo-Neb) 0.5-2.5 mg/3 mL nebulizer solutionIndica tions:Chronic obstructive pulmonary disease, unspecified COPD type ([facility]) INHALE 1 AMPULE USING A NEBULIZER FOUR TIMES DAILY NEEDED FOR ASTHMA OR (for COPD) 180 mL 2 07/23/20 24 Active hydrOXYzine pamoate (Vistaril) 50 MG capsule TAKE 1 CAPSULE BY MOUTH THREE TIMES DAILY NEEDED FOR ANXIETY 07/15/20 24 Active Alcohol Swabs (Alcohol Prep) 70 % padsIndication s:Type 2 diabetes mellitus without complication, without long-term current use of insulin ([facility]) USE EVERY DAY UP TO TWICE DAILY 100 each 08/12/20 24 Active glucose blood (FREESTYLE LITE) test stripIndicatio ns:Type 2 diabetes mellitus without complication, without long-term current use of insulin ([facility]) Use to check blood sugar up to twice daily 100 each 08/12/20 24 Active TRUEplus Lancets 33G miscIndication s:Type 2 diabetes mellitus without complication, without long-term current use of insulin ([facility]) Use to check blood sugar up to twice daily 100 each 08/12/20 24 Active semaglutide (Rybelsus) 7 MG tablet TAKE 1 TABLET EVERY MORNING, 30 MINUTES BEFORE A MEAL ICD10= 30 tablet 5 08/26/20 24 Active Aspirin Low Dose 81 MG EC tabletIndicati ons:Type 2 diabetes mellitus with other specified complication, unspecified whether chcf insulin use (CMS/HCC) TAKE 1 TABLET BY MOUTH EVERY EVENING 90 tablet 1 09/02/20 24 Active metFORMIN XR (Glucophage-XR ) 500 MG 24 hr tabletIndicati ons:Type 2 diabetes mellitus without complication, without long-term current use of insulin (CMS/HCC) TAKE 2 TABLETS BY MOUTH TWICE DAILY AT NOON AND IN THE EVENING 360 tablet 1 09/11/20 24 Active Ventolin HFA 108 (90 Base) MCG/ACT inhalerIndicat ions:Chronic obstructive pulmonary disease, unspecified COPD type (CMS/HCC) INHALE 2 PUFFS BY MOUTH EVERY 4 TO 6 HOURS NEEDED 18 g 2 09/11/20 24 Active glipiZIDE (Glucotrol) 5 MG tablet TAKE 2 TABLETS BY MOUTH TWICE DAILY IN THE MORNING AND EVENING BEFORE MEALS 120 tablet 5 09/30/20 24 Active loratadine (Claritin) 10 MG tablet TAKE 1 TABLET BY MOUTH EVERY MORNING 30 tablet 11 10/27/20 24 Active atorvastatin (Lipitor) 40 MG tablet TAKE 1 TABLET BY MOUTH AT BEDTIME 30 tablet 5 10/27/20 24 Active nicotine (Nicoderm, Step 1) 21 MG/24HR patch APPLY 1 PATCH TOPICALLY TO THE SKIN IN THE MORNING *DO NOT SMOKE WHILE USING PATCH* 30 patch 1 11/16/19 25 Active acetaminophen (Tylenol 8 Hour) 650 MG ER tabletIndicati ons:Acute post-traumatic headache, not intractable TAKE 1 TABLET BY MOUTH EVERY 8 HOURS NEEDED FOR PAIN OR FEVER 60 tablet 3 12/01/19 25 Active tiotropium (Spiriva HandiHaler) 18 MCG inhalation capsuleIndicat ions:Chronic obstructive pulmonary disease, unspecified COPD type (CMS/HCC) USE 1 CAPSULE FOR INHALATION ONCE A DAY DO NOT SWALLOW CAPSULE 30 capsule 12/01/19 25 Active Spiriva HandiHaler 18 MCG inhalation capsuleIndicat ions:Chronic obstructive pulmonary disease, unspecified COPD type (CMS/HCC) USE 1 CAPSULE FOR INHALATION ONCE A DAY DO NOT SWALLOW CAPSULE 30 capsule 11 11/14/19 24 025 Discontinued(R eorder (will not trigger notification to Pharmacy)) acetaminophen (Tylenol 8 Hour) 650 MG ER tabletIndicati ons:Acute post-traumatic headache, not intractable TAKE 1 TABLET BY MOUTH EVERY 8 HOURS NEEDED FOR PAIN OR FEVER 60 tablet 3 07/15/20 24 025 Discontinued(R eorder (will not trigger notification to Pharmacy)) nicotine (Nicoderm, Step 1) 21 MG/24HR patch APPLY 1 PATCH TOPICALLY TO THE SKIN IN THE MORNING *DO NOT SMOKE WHILE USING PATCH* 30 patch 1 08/04/20 24 025 Discontinued Active Problems Problem Noted Date Diagnosed Date Toenail avulsion, initial encounter 08/26/2024 Assessment & Plan (08/26/2024 11:44 AM EDT): - partial, no evidence of nail bed infection or ingrown toenail - advised to keep area clean and dry and avoid trauma/more instrumentation of the toenail - refer to concrete block mason - TB UTD Plantar callus 08/26/2024 Assessment & Plan (08/26/2024 11:45 AM EDT): - non-tender, refer to podiatry for further f/u - advised regarding routine foot exam, re consult PRN Onychomycosis of multiple to enails with type 2 diabetes mellitus ([facility]/HCC) 08/26/2024 Assessment & Plan (08/26/2024 11:45 AM EDT): - mild, advised to submerge toenails in solution of vinegar/water 50/50 - refer to podiatry Fatty liver 11/08/2023 Assessment & Plan (01/28/2024 2:44 PM EDT): -abd US with HMG with diffuse fatty change APR 2018, encouraged schedule repeat -AFP nml and LFTs slightly elevated Aug 2023 Status post thyroidectomy 11/08/2023 History of papillary thyroid carcinoma Assessment & Plan (01/28/2024 2:48 PM EDT): s/p total thyroidectomy APR 2021 and I131 remnant ablation OCT 2021 -cont levothyroxine daily -repeat TFTs as per endo -f/u with endo as scheduled Chronic gastroesophageal reflux disease 11/08/20 Assessment & Plan (01/28/2024 2:46 PM EDT): Controlled -cont protonix BID Chronic low back pain 11/08/2023 Assessment & Plan (01/28/2024 2:46 PM EDT): -L-spine x-rays with mild multilevel spondylosis DEC 2019 -cont tylenol and tizanidine prn -encouraged tramadol use TID severe pain -encouraged heat/ice therapy -she declines PT -f/u with pain mgmt prn -advised contact [facility] if sx change or worsen Leukocytosis 11/08/2023 Assessment & Plan (01/28/2024 2:46 PM EDT): WBC nml Aug 2023 -will continue to monitor -will re-refer to hematology prn Type 2 diabetes mellitus 03/16/2016 Assessment & Plan (01/28/2024 2:44 PM EDT): Significant bump in A1c, repeat A1c in lab as requested -encouraged dietary changes -cont metformin and glipizide BID -cont rybelsus daily -cont regular BS monitoring -re-referred to [facility] pharmacist for eval -cont statin and low-dose lisinopril daily -Cr/GFR nml Aug 2023 with nml urine microalbumin SEP 2022 -s/p optho eval Nov 2022 [facility], review next visit -s/p nml monofilament MAY 2022 Allergic rhinitis 11/03/2015 Bipolar disorder 11/03/2015 Assessment & Plan (01/28/2024 2:44 PM EDT): -she denies any current SI/HI -she has the number for crisis and contracts for safety -cont meds as per psychiatrist -f/u with therapist and psychiatrist as scheduled Chronic obstructive lung disease 11/03/2015 Assessment & Plan (01/28/2024 2:53 PM EDT): PFTs with mild obstructive changes APR 2012, stable -change flovent to asmanex BID -cont spiriva daily -cont singulair daily -cont albuterol/duoneb as needed -cont nighttime O2 supplementation -she declines f/u with pulmonology Obstructive sleep apnea 11/03/2015 Hyperlipidemia 11/03/2015 Assessment & Plan (01/28/2024 2:44 PM EDT): LDL near goal Aug 2023 -cont lipitor nightly Tobacco dependence 11/03/2015 Assessment & Plan (01/28/2024 2:47 PM EDT): -strongly encouraged cessation -will re-refer to lung CA screening program pending CT results Resolved Problems Problem Noted Date Diagnosed Date Resolved Date Right leg pain 12/23/2023 12/23/2023 Acute vaginitis 03/20/2023 11/08/2023 Assessment & Plan (03/20/2023 11:12 AM EDT): prescription for fluconazole 150 x1 + Lotrisone cream to vulvar area PRN pruritis. recommended tight control of dibates agree with pharmamcy regarding dc jardiance will contact PCP to replace Jardiance for another medicaiton. Diarrhea 04/18/2018 02/26/2023 Encounters Date Type Department Care Team Description 12/07/2024 Telephone [facility] [address] [place] [address] Linda Murphy DO 12/06/2024 Orders Only GENERIC EXTERNAL DATA DEPARTMENT Provider, Generic External Data 12/01/2024 Refill [facility] [address] [place] [address] Linda Murphy DO Acute post-traumatic headache, not intractable; Chronic obstructive pulmonary disease, unspecified COPD type ([facility]) 11/25/2024 Orders Only [facility] External Provider, [facility] 11/18/2024 Travel 11/14/2024 Refill [facility] [address] [place] [address] Linda Murphy DO 11/04/2024 Refill [facility] [address] [place] [address] Linda Murphy, Acute post-traumatic headache, not intractable 10/30/2024 Telephone [facility] [address] [facility] [place] [address] Joselyn García, RN PET results 10/30/2024 Telephone [facility] [address] [facility] [place] [place] [address] Linda Murphy, PET CT RESULTS 10/24/2024 Refill [facility] [address] [facility] [place] [place] [address] Linda Murphy, 10/21/2024 Telephone [facility] [address] [facility] [place] [place] [address] Linda Murpyh, Referral 10/21/2024 Telephone [facility] [address] [facility] [place] [place] [address] Linda Murphy, Referral 10/14/2024 Telephone [facility] [address] [facility] [place] [place] [address] Linda Murphy, 10/14/2024 Telephone [facility] [address] [facility] [place] [place] [address] Linda Murphy, 10/13/2024 Refill [facility] [address] [place] [address] Linda Murphy, Chronic low back pain, unspecified back pain laterality, unspecified whether sciatica present 10/06/2024 11:45 AM EST Office Visit [facility] [place] [place] [address] Linda Murphy, Chronic obstructive pulmonary disease, unspecified COPD type ([facility]) (Primary Dx); Encounter for immunization; Obstructive sleep apnea 10/06/2024 Travel 10/05/2024 Orders Only GENERIC EXTERNAL DATA DEPARTMENT Provider, Generic External Data 09/30/2024 Refill [facility] [place] [place] [address] Linda Murphy, 09/25/2024 Telephone [facility] [address] [facility] [place] [place] [address] Joselyn García, KRYSTYNA Appt r/s 09/18/2024 10:30 AM EST Office Visit [facility] [address], [place] [phone] Eri An, JACK FRAME TENDER Plantar wart of left foot (Primary Dx) 09/18/2024 Travel 09/17/2024 Telephone [facility] [address], [place] [phone] Linda Murphy DO Nurse Triage from Last 3 Months Immunizations Name Administration Dates Next Due Hep B, adult 03/16/2016,08/01/2015,05/20/2015 Influenza injectable quadriv alent IIV4 with preservative 10/07/2018,07/25/2017,09/18/2016,08/01 Influenza injectable quadriv alent preservative free 07/22/2023,08/24/2022,12/14/2021,10/03,09/29/2019 Influenza, IIV3, injectable 07/21/2014 Influenza, Split (incl. delfino fied surface antigen) 11/18/2013,08/14/2012 Influenza, seasonal, injecta ble, preservative free 08/26/2024 Moderna Covid-19 Vaccine 12+ 12/14/2021,02/25/20 21,01/27/2021 Moderna Covid-19 Vaccine 6+ Bivalent 08/24/2022 Pfizer Covid-19 Vaccine 12+ 10/06/2024 Pfizer Covid-19 Vaccine 12+ Bivalent 07/22/2023, 08/24/2022 Pneumococcal Conjugate PCV 20 08/14/2023 Pneumococcal Polysaccharide PPSV23 10/27/2012, TD (adult), 2 Lf tetanus tox oid, preservative free, adsorbed 08/24/2022 Tdap 04/23/2012 Zoster, Recombinant 01/14/2023,09/12/2022 Family History Medical History Relation Name Comments Diabetes Brother No Known Problems Father's Sister COPD Mother Coronary artery disease Mother Diabetes Mother Hypertension Mother Lung cancer Mother Coronary artery disease Paternal Grandmother Diabetes Paternal Grandmother Cervical cancer Sister Diabetes Sister Relation Name Status Comments Brother Father Father's Sister Mother Paternal Grandmother Sister Social History Tobacco Use Types Packs/Day Years Used Date Smoking Tobacco: Every Day Cigarettes Passive Smoke Exposure: Current Smokeless Tobacco: Never Tobacco Cessation:Ready to Q uit: Not Asked; Counseling Given: Not Answered Comments:Went from 2 packs daily to 3 cigarettes daily Alcohol Use Standard [...] not to disclose 2021 10:14 AM EDT Last Filed Vital Signs Vital Sign Reading Time Taken Comments Blood Pressure 112/76 10/06/2024 12:05 PM EST Pulse 86 10/06/2024 12:05 PM EST Temperature 36 ??C (96.8 ??F) 10/06/2024 12:05 PM EST Respiratory Rate 17 10/06/2024 12:05 PM EST Oxygen Saturation 96% 10/06/2024 12:11 PM EST Walking Inhaled Oxygen Concentration - - Weight 93.9 kg (207 lb) 10/06/2024 12:05 PM EST Height 171.5 cm (5' 7.5 ) 10/06/2024 12:05 PM ES T Body Mass Index 31.94 10/06/2024 12:05 PM EST Plan of Treatment Upcoming Encounters Date Type Department Care Team (Late st Contact Info) Description 12/21/2024 10:30 AM EST Office Visit [address] [address] Linda Murphy DO [address] [place] [address] 12/29/2024 10:30 AM EST Clinical Support [address] [phone] No Lopez RN Health Maintenance Due Date Last Done Comments CT Colonography 1972 Colonoscopy 1972 Colorectal Cancer Screening 1972 FIT DNA/Cologuard 1972 FIT 1972 FOBT 1972 Sigmoidoscopy 1972 Eye Exam 1982 Alcohol/Substance Use Screening 1984 Family Planning (PISQ) 1987 Hepatitis A Vaccines (1 of 2 - Risk 2-dose series) 1991 Mammogram 04/01/2021 04/01/2019, 01/09/2018 Depression Screening 02/27/2024 02/26/2023, 02/27/20 23 Diabetes: Hemoglobin A1C 11/13/2024 024, 06/16/2024, 01/28/2024, Additional history exists SDOH Screening 01/19/2025 01/20/2024 Cervical Cancer Screening 02/15/2025 Pap Smear 02/15/2025 02/15/2022, 02/15/2022 Diabetes: Urine Protein Screening 08/13/2025 08/13/2024, 01/14/2023, 11/29/2021, Additional history exists Lipid Panel 08/13/2025 08/13/2024, 08/11, 09/19/2022, Additional history exists Diabetes: Foot Exam 09/18/2025 09/18/2024, 08/26/2024, 08/26/2024, Additional history exists Tobacco Screening 09/22/2025 09/22/2024 HPV/Cotest 05/21/2027 05/21/2022, 05/11, 02/15/2022 DTaP/Tdap/Td Vaccines (3 - Td or Tdap) 08/24/2032 08/24/2022, 04/23/2012 RSV Patients and Patients Aged 60 years or older (1 - 1-dose 75+ series) 2047 Hepatitis B Vaccines Completed 03/16/2016, 08/01/2015, 05/20/2015 Zoster Vaccines Completed 01/14/2023, 09/12/2022 Pneumococcal Vaccine: 50+ Years Completed 08/14/2023, 10/27/2012, 04/23/2012 HIV Screening Completed 08/26/2023, 07/2022, 01/29/2022 Hepatitis C Screening Completed 08/26/2023 , 09/19/2022, 01/29/2022 Influenza Vaccine Completed 08/26/2024, , 08/24/2022, Additional history exists COVID-19 Vaccine Completed 10/06/2024, 09/2023, 08/24/2022, Additional history exists HIB Vaccines Aged Out No longer eligi ble based on patient's age to complete this topic HPV Vaccines Aged Out No longer eligi ble based on patient's age to complete this topic IPV Vaccines Aged Out No longer eligi ble based on patient's age to complete this topic Meningococcal Vaccine Aged Out No dev allegra eligible based on patient's age to complete this topic RSV under 20 months Aged Out No longe r eligible based on patient's age to complete this topic Rotavirus Vaccines Aged Out No longer eligible based on patient's age to complete this topic Goals Goal Patient Goal Type Associated Problems Recent Progress Patient-Stated? Author Hemoglobin A1c < 7 Result Component 7.4(08/13/2024 3:26 PM EDT) No Neri Yang PharmD Procedures Procedure Name Priority Date/Time Associated Diagnosis Comments BASIC METABOLIC PANEL Routine 12/06/2024 12:50 PM EST HEPATIC FUNCTION PANEL Routine 12/06/2024 12:50 PM EST URINALYSIS, COMPLETE, WITH REFLEX TO CULTURE Routine 12/06/2024 12:50 PM EST CBC WITH AUTO DIFFERENTIAL Routine 12/06/2024 12:50 PM EST SARS COV2/INFLUENZA A/B AND RSV RNA QL NAAT Routine 12/06/2024 12:50 PM EST GLUCOSE, WHOLE BLOOD Routine 12/06/2024 12:30 PM EST CULTURE, URINE, ROUTINE Routine 12/06/2024 12:00 AM EST US HEAD NECK SOFT TISSUE Routine 11/25/2024 2:35 PM EST TSH Routine 10/05/2024 12:08 PM EST T4, FREE Routine 10/05/2024 12:08 PM EST CRYOTHERAPY SKIN LESION Routine 09/18/2024 11:00 AM EST Plantar wart of left foot ALBUMIN, RANDOM URINE W/CREATININE Routine 08/13/2024 3:30 PM EDT Type 2 diabetes mellitus without complication, without long-term current use of insulin (CMS/HCC) Other hyperlipidemia Fatty liver Chronic bipolar disorder (CMS/HCC) Chronic obstructive pulmonary disease, unspecified COPD type (CMS/HCC) Leukocytosis, unspecified type Chronic gastroesophageal reflux disease Chronic bilateral low back pain without sciatica Tobacco dependence Pulmonary nodule Neuropathy of right peroneal nerve History of papillary thyroid carcinoma Healthcare maintenance HEMOGLOBIN A1C Routine 08/13/2024 3:26 PM EDT Type 2 diabetes mellitus without complication, without long-term current use of insulin (CMS/HCC) Other hyperlipidemia Fatty liver Chronic bipolar disorder (CMS/HCC) Chronic obstructive pulmonary disease, unspecified COPD type (CMS/HCC) Leukocytosis, unspecified type Chronic gastroesophageal reflux disease Chronic bilateral low back pain without sciatica Tobacco dependence Pulmonary nodule Neuropathy of right peroneal nerve History of papillary thyroid carcinoma Healthcare maintenance LIPID PANEL, STANDARD Routine 08/13/2024 3:26 PM EDT Type 2 diabetes mellitus without complication, without long-term current use of insulin (CMS/HCC) Other hyperlipidemia Fatty liver Chronic bipolar disorder (CMS/HCC) Chronic obstructive pulmonary disease, unspecified COPD type (CMS/HCC) Leukocytosis, unspecified type Chronic gastroesophageal reflux disease Chronic bilateral low back pain without sciatica Tobacco dependence Pulmonary nodule Neuropathy of right peroneal nerve History of papillary thyroid carcinoma Healthcare maintenance HEPATITIS C AB W/REFL TO HCV RNA, QN, PCR Routine 08/26/2023 2:47 PM EDT HIV ANTIBODY/ANTIGEN ([facility]) Routine 08/26/2023 2:47 PM EDT ZZZ HISTORICAL HPV E6/E7 RFLX LUIS 16 18/45 Routine 05/21/2022 3:45 PM EDT PAP SMEAR Routine 02/15/2022 12:00 AM EDT BI MAMMOGRAM SCREENING BILATERAL Routine 04/01/2019 2:56 PM EDT from Last 3 Months or Most Recently Relevant to Health Maintenance Results * (ABNORMAL) Urinalysis, Complete, with Reflex to Culture (12/06/2024 12:50 PM EST) Color Urine Yellow [facility] Appearance Urine Clear [facility] PH 7.5 5.0 - 9.0 [facility] Glucose Urine UA Negative Negative mg/dL [facility] Urine Blood Negative Negative [facility] Specific [place] - Urine 1.015 1.005 - 1.025 [facility] Urine Protein Trace Neg-Trace mg/dL [facility] Urine Ketones Negative Negative mg/dL [facility] Nitrite Urine Negative Negative [facility] Leukocyte Esterase Urine Small (1+)(A) Negative [facility] RBC Urine 0-2 0 - 2 /HPF [facility] Urine WBC 11-20(A) 0 - 5 /HPF [facility] Urine Squamous Epithelial Cell 0-2 0 - 2 /HPF [facility] Urine Bacteria Trace None Seen [facility] Hyaline Casts, Urine 0-2 0 - 2 /LPF [facility] 12/06/2024 12:5 0 PM EST 12/06/2024 1:03 PM EST Narrative [facility] - 12/06/2024 1:24 PM EST Urine, Clean Catch Generic External Data Provider LAB URINE ORDERAB LES Final Result Performing Organization Address [facility] Co de Phone Number [facility] [address] [place] [phone] * SARS-CoV-2 RNA, Influenza A/B, and RSV RNA, Ql NAAT (12/06/2024 12:50 PM EST) Influenza A PCR NEGATIVE Negative [facility] Influenza B PCR NEGATIVE Negative [facility] Resp Syncy Virus RNA Qual PCR NEGATIVE Negative [facility] SARS COV2 PCR NEGATIVE Negative [facility] Comment:All test results mus t be [...] use by authorized laboratories.Testing performed on the [employer] utilizingreal-time RT-PCR.All SARS CoV2 and positive influenza A/B results arereported to [facility]. 12/06/2024 12:5 0 PM EST 12/06/2024 1:03 PM EST Generic External Data Provider LAB MICROBIOLOGY - GENERAL ORDERABLES Final Result Performing Organization Address [facility]/ZIP Co de Phone Number [facility] [address] [place] [phone] * (ABNORMAL) CBC auto differential (12/06/2024 12:50 PM EST) White Blood Count 11.3(H) 4.8 - 10.8 X10*3/uL [facility] Red Blood Count 4.94 4.20 - 5.50 X10*6/uL [facility] Hemoglobin 13.8 12.0 - 16.0 g/dl [facility] Hematocrit 41.6 37.0 - 47.0 % [facility] Mean Corpuscular Volume 84.2 80.0 - 98.0 fL [facility] Mean Corpuscular Hemoglobin 27.9 27.0 - 33.0 pg [facility] Mean Corpuscular HGB Conc 33.2 31.0 - 35.0 g/dl [facility] Red Cell Distribution Width 13.9 11.0 - 16.0 % [facility] Platelet Count 327 160 - 400 X10*3/uL [facility] Mean Platelet Volume 9.7 9.4 - 12.3 fL [facility] Neutrophils Percent Auto 71.7 45 - 73 % [facility] Imm Gran Pct Auto 0.5(H) 0.0 - 0.4 % [facility] Lymphocytes Percent Auto 20.7 20 - 40 % [facility] Monocytes Percent Auto 5.6 2 - 11 % [facility] Eosinophils Percent Auto 1.1 0 - 4 % [facility] Basophils Percent Auto 0.4 0 - 2 % [facility] NRBC Pct Auto 0.0 0.0 - 0.2 /100WBC [facility] Neutrophils Absolute Auto 8.1 2.0 - 8.3 x10*3/uL [facility] Imm Gran Abs Auto 0.06(H) 0.00 - 0.03 X10*3/uL [facility] Lymphocytes Absolute Auto 2.4 1.2 - 4.9 X10*3/uL [facility] Monocytes Absolute Auto 0.6 0.1 - 1.2 X10*3/uL [facility] Eosinophils Absolute Auto 0.1 0.0 - 0.4 X10*3/uL [facility] Basophils Absolute Auto 0.0 0.0 - 0.2 X10*3/uL [facility] NRBC Abs Auto 0.000 0.0 - 0.012 X10*3/uL [facility] 12/06/2024 12:5 0 PM EST 12/06/2024 1:03 PM EST Generic External Data Provider LAB BLOOD ORDERAB LES Final Result Performing Organization Address [facility] Co de Phone Number [facility] [address] [place] [phone] * (ABNORMAL) Hepatic Function Panel (12/06/2024 12:50 PM EST) Pathologist [facility] Bilirubin, Total 0.2 0.0 - 1.0 mg/dL [facility] Bilirubin, Direct <0.2 0.0 - 0.5 mg/dL [facility] Aspartate Amino Transferase 23 5 - 31 U/L [facility] Alanine Aminotransferase 26 0 - 31 U/L [facility] Total Protein 8.1(H) 6.5 - 8.0 g/dL [facility] Albumin Level 4.4 3.5 - 5.0 g/dL [facility] Alkaline Phosphatase 92 39 - 117 U/L [facility] 12/06/2024 12:5 0 PM EST 12/06/2024 1:03 PM EST [employer] External Data Provider LAB BLOOD ORDERAB LES Final Result Performing Organization Address [facility] de Phone Number [facility] [address] [place] [address] [phone] * (ABNORMAL) Basic Metabolic Panel (12/06/2024 12:50 PM EST) Pathologist [facility] Sodium 143 135 - 145 mmol/L [facility] Potassium 4.4 3.3 - 5.1 mmol/L [facility] Chloride 103 96 - 108 mmol/L [facility] Carbon Dioxide 30(H) 22 - 29 mmol/L [facility] Anion Gap 14 12 - 20 [facility] Urea Nitrogen (BUN) 13 9 - 16 mg/dL [facility] Creatinine, Serum 1.10 0.5 - 1.4 mg/dL [facility] Creatinine Clr Calc Pharmacy 69.7 [facility] Comment:Provided height and weight: 170.18 cm,92.1 kg.eGFR (calculated from the MDRD study equation) and eCrCl(calculated from the Cockcroft-Gault equation) are based ondifferent parameters and may not yield comparable results.If eCrCl result is absurd, please check patient'sheight/weight. Estimated Glomerular Filt Rate 52 [facility] Comment:Chronic Kidney Disea se: Estimated GFR < 60 mL/min/1.30d1Yassaq Kidney Disease: Estimated GFR < 15 mL/min/1.73m2 Glucose 170(H) 60 - 115 mg/dL [facility] Calcium 9.5 8.4 - 10.2 mg/dL [facility] 12/06/2024 12:5 0 PM EST 12/06/2024 1:03 PM EST us Generic External Data Provider LAB BLOOD ORDERAB LES Final Result Performing Organization Address [facility]/ZIP Co de Phone Number [facility] [address] [place] [phone] * (ABNORMAL) Glucose, Whole Blood (12/06/2024 12:30 PM EST) Glucose, Whole Blood 160(H) 60 - 115 mg/dL [facility] Comment:METER #: [id number] 12/06/2024 12:3 0 PM EST 12/06/2024 12:35 PM EST us Generic External Data Provider LAB BLOOD ORDERAB LES Final Result Performing Organization Address City/[facility]/ZIP Co de Phone Number [facility] [address] [place] [address] [phone] * Culture, Urine, Routine (12/06/2024 12:00 AM EST) Urine Urine specimen obtained by clean catch procedure / Unknown 12/06/2024 12/06/2024 Comment:UACC Narrative [facility] - 12/07/2024 8:13 AM EST Urine Culture Report Result Urine Culture 50,000 to 100,000 cfu/ml Urine Culture Mixed bacterial cabrera characteristic of Urine Culture urogenital contamination. Specimen Source: Urine clean catch us Generic External Data Provider LAB MICROBIOLOGY - GENERAL ORDERABLES Final Result [facility] [address] [place] [phone] * US Head Neck Soft Tissue (11/25/2024 2:35 PM EST) Anatomical Region Laterality Modality Head, Neck Ultrasound 11/25/2024 2:35 PM EST Narrative 11/26/2024 8:32 AM EST ? [facility] ?[address] [place] [address] St. ?[place] [address] ? Ultrasound Report ? Signed ? Patient: Tisha Ruiz ?MR#: [id number] ?? 61 ? : 1970 ?Acct:[id number] ? Age/Sex: 54 / F ?ADM Date: 11/25/24 ? Loc: HO.US ? Attending Dr: Geneva Candelario MD ? Ordering Physician: Geneva Candelario MD ?? Date of Service: 11/25/24 ?? Procedure(s): US soft tiss head and/or neck ?? Accession Number(s): [id number] ? cc: Linda Murphy DO; Geneva Candelario MD ? EXAMINATION: ?? US SOFT TISSUE NECK. ? CLINICAL INFORMATION: ?? History of malignant neoplasm of thyroid. ? COMPARISON: ?? None available. ? TECHNIQUE: ?? Linear transducer espinoza-scale and color Doppler examination with ?? attention [...] 08:29 AM EST RP ? Dictated By: ?Sonya,Jamie Recinos MD ? Signed By: ?<Electronically signed by Jamie Hassan MD in OV> ?11/26/24 0829 ? DD/ 1435 ? TD/TT: 11/25/24 1450 ? Motor Analyst: MSM ? Procedure Note Donotuseinterpreter, Image - 11/26/[address] [address] Ultrasound Report Signed Patient: Ayanna RuiznMR#: [id number] 61 : 1970Acct:[id number] Age/Sex: 54 / FADM Date: 11/25/24 Loc: HO.US Attending Dr: Geneva Candelario MD Ordering Physician: Geneva Candelario MD Date of Service: 11/25/24 Procedure(s): US soft tiss head and/or neck Accession Number(s): [id number] cc: Linda Murphy DO; Geneva Candelario MD [...] by: Jamie Hassan MD 11/26/2024 08:29 AM EST RP Dictated By: Jamie Hassan MD Signed By: <Electronically signed by Jamie Hassan MD in OV> 11/26/24 0829 DD/ 1435 TD/TT: 11/25/24 1450 Motor Analyst: DAMI [facility] External Provider IMG US PROCEDURES Edited Result - Final * (ABNORMAL) TSH (10/05/2024 12:08 PM EST) Thyroid Stimulating Hormone 6.59(H) 0.32 - 4.0 uIU/mL [facility] Comment:Note: A sustained TS H level above 2.5 uIU/mL may warrant further investigation. TSH 3rd Generation ([facility]) 10/05/2024 12:0 8 PM EST 10/05/2024 12:08 PM EST Generic External Data Provider LAB BLOOD ORDERAB LES Final Result [facility] [address] [place] [phone] * T4, Free (10/05/2024 12:08 PM EST) Free T4 (Free Thyroxine) 1.26 0.71 - 1.85 ng/dL [facility] 10/05/2024 12:0 8 PM EST 10/05/2024 12:08 PM EST us Generic External Data Provider LAB BLOOD ORDERAB LES Final Result Performing Organization Address City/State/[facility] Co de Phone Number [facility] [address] [place] [phone] * Cryotherapy, skin lesion (09/18/2024 11:00 AM EST) Narrative Eri An FNP - 09/18/2024 11:00 AM EST WOLFGANG Baca ? 09/22/2024 ??1:32 PM Cryotherapy, skin lesion Date/Time: 09/18/2024 11:00 AM Performed by: WOLFGANG Baca Authorized by: WOLFGANG Baca ?? Consent: ??Consent obtained: ??Written ??Consent given by: ??Patient ??Procedure risks and benefits discussed: Yes ?Patient questions answered: Yes ?Patient agrees, verbalizes understanding, and wants to proceed: Yes ?Instructions and paperwork completed: Yes ?? [place] protocol: ??Procedure explained and questions answered to patient or proxy's satisfaction: yes ?Relevant documents present and verified: yes ?Immediately prior to procedure, a time out was called: yes ?Patient identity confirmed: ??Verbally with patient Pre-procedure details: ??Skin preparation: ??Antiseptic wash Sedation: ??Sedation type: ??None Anesthesia: ??Anesthesia method: ??None Post-procedure details: ??Procedure completion: ??Tolerated well, no immediate complications us Eri GOSS DERM PROCEDURE ORDERABLES Fin al Result * Albumin, Random Urine W/Creatinine (08/13/2024 3:30 PM EDT) Creatinine, Urine 21.51 mg/dL [facility] Microalbumin Urine <5.0 mg/L [facility] Microalbum Creatinine Ratio Ur TNP <30 ug/mg cr [facility] Comment:Unable to calculate albumin/creatinine ratio due to lowmicroalbumin or creatinine result. Urine (Urine, Random) 08/13/2024 3:30 PM EDT 08/13/2024 3:38 PM EDT Linda Katherine DO LAB URINE ORDERABLES Final R esult Performing Organization Address [facility] Co de Phone Number [facility] [address] [place] [phone] * (ABNORMAL) Hemoglobin A1c (08/13/2024 3:26 PM EDT) Hemoglobin A1c 7.4(H) <6.0 % [facility] Comment:Hemoglobin A1C Refer ence Range Adults: 4.8 - 6.0 % Non diabetic: < 6.0 % Goal: < 7.0 %Additional Action Suggested: > 8.0 %Note: Hemoglobin A1c results are invalid for patients with abnormal amounts of HbF. Blood transfusions may impact the HbA1c concentration in the patient sample. Estimated Average Glucose 166 mg/dL [facility] Comment:eAG = Estimated ave rage glucose which is %A1C expressed asaverage glucose, using the formula of the L0M-StnmwteEdtxszi Glucose study (ADAG), Diabetes Care, Vol.31,#8,2007 Blood Venous blood specimen / Unknown 08/13/2024 3:26 PM EDT 08/13/2024 3:26 PM EDT Linda Murphy DO LAB BLOOD ORDERABLES Final R esult Performing Organization Address City/[facility]/ZIP Co de Phone Number [facility] [address] [place] [address] [phone] * (ABNORMAL) Lipid Panel, Standard (08/13/2024 3:26 PM EDT) Triglycerides 257(H) <150 mg/dL [facility] Comment:Desirable Triglyceri de: less than 150 mg/dLBorderline High Triglyceride 150-199 mg/dLHigh Triglyceride: 200-499 mg/dLVery High Triglyceride: greater than or equal to 5OO mg/dL Cholesterol 151 <200 mg/dL [facility] Comment:Desirable Cholestero l: less than 200 mg/dLBorderline High Cholesterol: 200-239 mg/dLHigh Cholesterol: greater than 239 mg/dL LDL Cholesterol Calculated 61 <100 mg/dL [facility] Comment:Desirable LDL: less than 100 mg/dLNear Optimal/Above Optimal LDL: 110- 129 mg/dLBorderline High LDL: 130-159 mg/dLHigh LDL: 160-189 mg/dLVery High LDL: greater than or equal to 190 mg/dL HDL Cholesterol 39(L) >40 mg/dL [facility] Comment:Desirable HDL: great er than 40 mg/dL Note: This HDL assay may give artificially low results in patients with liver disease. Blood Venous blood specimen / Unknown 08/13/2024 3:26 PM EDT 08/13/2024 3:26 PM EDT us Linda Murphy DO LAB BLOOD ORDERABLES Final R esult [facility] [address] [place] [phone] * HIV Ab/Ag ([facility]) (08/26/2023 2:47 PM EDT) Pathologist [facility] HIV AB/AG Nonreactive Nonreactive [facility] Comment:HIV-1 p24 Ag and/or HIV-1/HIV-2 Ab not detected.A test result that is nonreactive does not exclude thepossibility of exposure to or infection with HIV-1 and/orHIV-2. Nonreactive results in this assay for individualswith prior exposure to HIV-1 and/or HIV-2 may be due toantigen and antibody levels that are below the limit ofdetection of this assay.The [employer] HIV Ag/Ab Combo assay result andsupplemental assay results should be interpreted inconjunction with the patient's clinical presentation,history and other laboratory results. If the results areinconsistent with clinical evidence, additional testing issuggested to confirm the result. 08/26/2023 2:47 PM EDT 08/26/2023 2:47 PM EDT Linda Murphy LAB BLOOD ORDERABLES Final R esult Performing Organization Address City/[facility]/ZIP Co de Phone Number [facility] [address] [place] [address] [phone] * Hepatitis C Antibody with Reflex to HCV, RNA, Quantitative, Real-Time PCR (08/26/2023 2:47 PM EDT) Hepatitis C Antibody Nonreactive Nonreactive [facility] Comment:Antibodies to HCV no t detected; does not exclude early acuteHCV infection. 08/26/2023 2:47 PM EDT 08/26/2023 2:47 PM EDT Linda Murphy LAB BLOOD ORDERABLES Final [facility] Performing Organization Address [facility] Co de Phone Number [facility] [address] [place] [phone] * HPV E6/E7 RFLX LUIS 16 18/45 (05/21/2022 3:45 PM EDT) HPV mRNA E6/E7 rflx Not Detected Not Detected [facility] Comment: Methodology: Beeswax Bleacher-Mediated Amplification This assay detects E6/E7 viral messenger RNA (mRNA) from 14 high-risk HPV types (16,18,31,33,35,39,45,51,52,56,58,59,66,68). Cervical sources are required for HPV testing. If a vaginal source from a patient who has had a total hysterectomy with removal of cervix was submitted, please contact the testing laboratory for alternative testing options. For additional information, please refer to http://education.[employer]faq/QNL604l0 (This link if provided for information/ educational purposes only.) THIS TEST WAS PERFORMED AT: [facility] [facility] [address] [place] [address],[address] [place], [place] ??[phone] VALERIA DURANT MD 05/21/2022 3:45 PM EDT us Fercho Palmer MD HISTORICAL/NON ORDERABLE LABS Fi nal Result [facility] [address] * Pap Smear (02/15/2022 12:00 AM EDT) Swab Linda Murphy DO LAB CYTOLOGY ORDERABLES Ce l Result [facility] [address], [place] [address] * DIGITAL BILATERAL SCREEN 1 (04/01/2019 2:56 PM EDT) Anatomical Region Laterality Modality Breast Bilateral Mammography 04/01/2019 2:56 PM EDT Narrative 04/01/2019 2:58 PM EDT Refer to the Notes tab for result details [facility] Procedure: DIGITAL BILATERAL SCREEN 1 Procedure Note Provider, MD Margie - 02/02/2023 Refer to the Notes tab for result details [facility] Procedure: DIGITAL BILATERAL SCREEN 1 us Linda Murphy DO IMG BI PROCEDURES Final Resu lt from Last 3 Months or Most Recently Relevant to Health Maintenance Insurance [facility] * Guarantor: Tisha Ruiz Account Type Relation to Patient Date of Phone Billing Address Personal/Family Self [address] [facility] [place] Care Teams Addiction Medicine Physician Relationship Specialty Start Date End Date Linda Murphy DO [address] [place], [place] PCP - General Family Medicine 11/24/12 Antionette Murphy PharmD [address], [place] Pharmacist Internal Medicine 07/15/24
--- OUTSIDE RECORDS SUMMARY | 2024-12-15 08:58 | XMS_ITS | Encounter Summary ---
Author Organization [employer] Address [address] [place] [address] 7[address] [place] [address] Care Team Providers Care Drapery Examiner Name Role Phone Linda Murphy DO Primary Care Provider Dellogla Neri PharmD Unavailable Unavail able [place] Antionette PharmD Unavailable [phone] Reason for Visit * Reason Onset Date Comments letter michael lopez 07/26/2023 Encounter Details Date Type Department Care Team (Late st Contact Info) Description 07/26/2023 Telephone [facility] [address] [place] [address] Linda Murphy DO [address] [place] [address] letter michael lopez Social History Tobacco Use Types Packs/Day Years [...] * Telephone Encounter - Andrzej Ledesma - 07/26/2023 12:05 PM EDT Tc from pt requesting a letter from provider stating all her medical conditions and also saying sheis to be dependent so light services would not be shut off. Pt states that that HIM transferred over to Medical side. Please contact pt at [phone] documented in this encounter Plan of Treatment Upcoming Encounters Date Type Department Care Team (Late st Contact Info) Description 12/21/2024 10:30 AM EST Office Visit [address] [address] [place] [address] 12/29/2024 10:30 AM EST Clinical Support [address] [address] No Lopez, RN documented as of this [...] documented as of this encounter Care Teams Drapery Examiner Relationship Specialty Start Date End Date Linda Murphy DO [address] [place] [phone] PCP - General Family Medicine 11/24/12 Neri Yang, PharmD [address] [place] [phone] Pharmacist Internal Medicine 11/23/22 10/17/23 Antionette Murphy PharmD [address] [place] [address] Pharmacist Internal Medicine 07/15/24 documented as of this encounter
--- OUTSIDE RECORDS SUMMARY | 2024-12-15 08:58 | XMS_ITS | Encounter Summary ---
Author Organization [employer] Address [address] [facility] 7t [place] [address] Care Team Providers Care Policy Change Clerk Name Role Phone Linda Murphy DO Primary Care Provider Antionette Murphy PharmD Unavailable Reason for Visit * Reason Comments Med Refill Encounter Details Date Type Department Care Team (Late st Contact Info) Description 11/24/2023 Refill [facility] [address] [place] [address] Linda Murphy DO [address] [place] [address] Social History Tobacco Use Types Packs/Day Years [...] Description 12/21/2024 10:30 AM EST Office Visit [address] [address] Linda Murphy DO [address] [place] [phone] 12/29/2024 10:30 AM EST Clinical Support [address] [address] No Lopez, KRYSTYNA documented as of this [...] documented as of this encounter Care Teams Policy Change Clerk Relationship Specialty Start Date End Date Linda Murphy DO [address] [place] [phone] PCP - General Family Medicine 11/24/12 Antionette Murphy PharmD [address] [place] [phone] Pharmacist Internal Medicine 07/15/24 documented as of this encounter
--- OUTSIDE RECORDS SUMMARY | 2024-12-15 08:58 | XMS_ITS | Encounter Summary ---
Author Organization [employer] Address [address] [facility] 7t [place] [address] Care Team Providers Care Career Based Intervention Coordinator Name Role Phone Linda Murphy DO Primary Care Provider [phone] Antionette Murphy PharmD Unavailable [phone] Encounter Details Date Type Department Care Team (Latest Contact Info) Description 11/18/2024 Travel Social History Tobacco Use Types Packs/Day Years [...] Description 12/21/2024 10:30 AM EST Office Visit [address] [address] Linda Murphy DO [address] [place] [address] 12/29/2024 10:30 AM EST Clinical Support [address] [address] No Lopez, KRYSTYNA documented as of this [...] documented as of this encounter Care Teams Career Based Intervention Coordinator Relationship Specialty Start Date End Date Linda Murphy DO [address] [place] [phone] PCP - General Family Medicine 11/24/12 Antionette Murphy PharmD [address] [place] [phone] Pharmacist Internal Medicine 07/15/24 documented as of this encounter
--- OUTSIDE RECORDS SUMMARY | 2024-12-15 08:58 | XMS_ITS | Encounter Summary ---
Author Organization [employer] Address [address] [facility] 7t [place] [address] Care Team Providers Care Digital Media Designer Name Role Phone Linda Murphy DO Primary Care Provider Dellogono Neri PharmD Unavailable Unavail able Puia Antionette PharmD Unavailable [phone] Reason for Visit * Reason Onset Date Comments triage 11/14/2022 Encounter Details Date Type Department Care Team (Late st Contact Info) Description 11/14/2022 Telephone [facility] MED[facility]INE [address] [place] [address] Linda Murphy DO [address] [place] [address] triage Social History Tobacco Use Types Packs/Day Years Used Date Smoking Tobacco: Never Assessed Comments Unknown Sex and Gender Information Value Date Recorded Sex Assigned at Female 09/10/2022 10:14 AM EDT Legal Sex Female 10:14 AM EDT Gender Identity Female 09/10/2022 10:14 AM EDT Sexual Orientation Choose not to disclose 2021 10:14 AM EDT documented as of this encounter Miscellaneous Notes * Telephone Encounter - Enedina Reid RN - 11/14/2022 3:47 PM EST Triage call Pt reports seen in [facility] ED today. Pt reports bruising on bilateral arms and left foot. Pt reports tingling in left arm as well. Pt requests to see Provider as soon as possible. Pt reports all that was done in Ed was Pt started on aspirin. Apt with Dr. Bailey 300pm 11/19 Insurance is verified as active prior to booking. Protocol Used: Bruises (Adult) Protocol-Based Disposition: See in Office or Video Visit within 2 Weeks Positive Triage Question: * Bruising easily is a chronic symptom (recurrent or ongoing AND present > 4 weeks) * All higher-acuity triage questions were negative Care Advice Discussed: * Reassurance and Education * Apply Local Cold * Use Heat on Area After 48 Hours * Pain Medicines * Pain Medicines - Extra Notes and Warnings * Avoid Aspirin * Note to Triager - Aspirin * Expected Course * Reasons To Call Back - Bruise is not fading by 10 days - Bruise persists over 3 weeks - You become worse * Telephone Encounter - Arden Koch - 11/14/2022 2:21 PM EST Symptoms: Bruises - Not From Injury, Arm Pain - Not From Injury Outcome: Schedule an urgent appointment (within 1 hour) or talk to a nurse or provider soon Reason: Severe pain now The caller accepted this outcome documented in this encounter Plan of Treatment Upcoming Encounters Date Type Department Care Team (Late st Contact Info) Description 12/21/2024 10:30 AM EST Office Visit [address] [address] Linda Murphy DO [address] [place] [phone] 12/29/2024 10:30 AM EST Clinical Support [address] [address] No Lopez RN documented as of this encounter Visit Diagnoses Not on filedocumented in this encounter Care Teams Digital Media Designer Relationship Specialty Start Date End Date Linda Murphy DO [address] [place] [address] PCP - General Family Medicine 11/24/12 Neri Yang PharmD [address] [place] [address] Pharmacist Internal Medicine 11/23/22 10/17/23 Antionette Murphy, EricD [address] [place] [address] Pharmacist Internal Medicine 07/15/24 documented as of this encounter
[2024-12-15 09:11] VITALS: BMI 32.5
[2024-12-15 09:34] LABS: INTERNATIONAL NORM RATIO 0.9 (0.9-1.1); Prothrombin Time 9.9 SEC (10.9-12.4)
[2024-12-15 09:36] LABS: Partial Thromboplastin Time 40.1 SEC (26.0-36.8)
[2024-12-15 09:42] LABS: Glucose, Whole Blood 178 mg/dL (60-115)
--- NOTE | 2024-12-15 10:10 | PC.NURSE ---
Rogelio Sales updated that patient took her Rybelsus yesterday. procedure cancelled for today. No IV was placed. patient left with all belongings.
== END ==
LOC: HO.SSS 08:44
PROVIDERS: Physician Assistant Surgical; PCP Family Medicine; Visit Provider Surgery
DX: R91.8 Other nonspecific abnormal finding of lung field (principal); Z53.09 Procedure and treatment not carried out because of other contraindication; R79.1 Abnormal coagulation profile; Z79.84 Long term (current) use of oral hypoglycemic drugs
CPT/HCPCS: 36415; 82947; 85610; 85730; J2250

== ENCOUNTER 2025-01-05 08:17 | Day surgery (SDC) | payer OTHER, SELFPAY ==
[2025-01-05] VITALS (15 sets, daily range): BP systolic 91–118; BP diastolic 48–70; PULSE 77–89; RESP 11–18; TEMP 36.4–36.6; O2SAT 93–99; BMI 32.3
--- NOTE | ~2025-01-05 | XR_ITS ---
EXAMINATION: XR CHEST CLINICAL INFORMATION: s/p left lung biopsy COMPARISON: None available. TECHNIQUE: Frontal view of the chest was obtained. FINDINGS: The cardiac, hilar, and mediastinal contours are normal. Extremely subtle 1.0 cm nodule left midlung. Lungs otherwise clear. No pneumothorax or effusion. No focal osseous or soft tissue abnormality. XR/XR chest 1V IMPRESSION: No pneumothorax post left lung biopsy. Electronically signed by: Lexa Lei MD 01/05/2025 11:54 AM [facility]
--- NOTE | ~2025-01-05 | XR_ITS ---
EXAMINATION: XR CHEST 1 VIEW HISTORY: s/p left lung bx 2hr COMPARISON: Comparison is made with the prior examination performed earlier in the day at 11:32 AM. FINDINGS: A single AP portable view of the chest performed at 12:30 PM is submitted. The patient's known left lung nodule is not well visualized. There is no pleural effusion, pneumothorax, or pulmonary vascular congestion. The heart is normal in size. There is degenerative disc disease of the spine. XR/XR chest 1V IMPRESSION: No pneumothorax. Electronically signed by: Dillon Botello MD 01/06/2025 08:57 AM [facility]
--- NOTE | ~2025-01-05 | CT_ITS ---
54-year-old female with enlarging left lower lobe lung nodule. Thoracic surgery requests biopsy. PROCEDURES: 1. Limited preprocedure CT of the chest. Permanent images saved in PACS. 2. CT-guided biopsy of the left lower lobe lung nodule 3. Limited postprocedure CT of the chest. Permanent images saved in PACS. CLINICIANS: Rogelio Sales PA-C MEDICATIONS: -Versed 1 mg, Fentanyl 50 mcg, and lidocaine 1% 10 mL SQ -Antibiotics: None -For additional details, please see nursing flowsheet. COMPLICATIONS: None ESTIMATED BLOOD LOSS: < 5 ml CONTRAST: None SPECIMENS: 3 x 20 g cores were sent for pathology MODERATE SEDATION TIME: 26 min PROCEDURE NOTE: The procedure, risks, benefits, and alternatives were carefully explained to the patient and written informed consent was obtained. The patient was placed in the right lateral decubitus position on the CT table. A timeout was performed. A limited CT of the chest was performed to localize the left lung nodule and choose appropriate needle entry and trajectory. The patient was prepped and draped in usual sterile fashion. The skin and deeper soft tissues were anesthetized with lidocaine. Under CT guidance, a 19 gauge trocar needle was advanced to the lung nodule. A 20 gauge biopsy device was inserted through the trocar needle and advanced into the lesion. A total of 3 cores were performed. The specimens were placed in formalin and sent to pathology. A total of 10 mL of nonclotted blood was obtained from the patient's IV by the nursing staff. A blood patch was then administered through the trocar needle. The needle was removed. A dry dressing was applied and secured with Tegaderm. A limited postprocedure CT of the chest was performed, which did not demonstrate any pneumothorax or hemothorax. There were no immediate complications. The patient was stable after the procedure and was transferred to the post anesthesia care unit. The procedure was done under moderate sedation with a dedicated nurse for monitoring of vital signs. CT/CT biopsy lung LT Impression: CT-guided left lower lobe lung nodule biopsy This procedure was performed by Rogelio Sales PA-C and supervised by Dr. Land. Electronically signed by: Bharathi Land MD 01/06/2025 02:20 PM [facility]
[2025-01-05 09:53] LABS: Glucose, Whole Blood 149 mg/dL (60-115)
--- NOTE | 2025-01-05 09:56 | MHC.SHP ---
Pre-Procedural Eval Section A - 24 Hr Update-Section A only Date of Service: 01/05/25 Section B - Complete if H&P > 30 days Chief Complaint: LEFT LUNG BIO,MASS LOWER LOBE Details of Present Illness: 54 y/o female with an enlarging LLL lung nodule. Relevant Family History (Specify if Yes): No Relevant Social History: Tobacco Use Present Medications: see Short Stay Collaborative assessment Medical History: Significant History History of Previous Operations: No relevant previous surgery Allergies: Allergies Allergy/AdvReac Type Severity Reaction Status Date / Time oxycodone [Percocet] Allergy Intermediate stomach Verified 01/05/25 09:30 pain SEASONAL ALLERGIES Allergy Unknown UNKNOWN Uncoded 12/15/24 09:19 Review of Systems Sugical H&P ROS: Negative: Constitution, Cardiovascular and Respiratory Exam Surgical H&P Exam: Normal: Heart, Normal: Lungs, Normal: Skin and Normal: Neurological Plan 54 y/o female with 1.2 cm LLL lung nodule -CT left lung biopsy Time Spent With Patient Time: Total time managing care of this patient today ____ minutes.
[2025-01-05] MEDS: Midazolam HCl 2 MG/2 ML VIAL 1 MG IVPUSH (10:24)
[2025-01-05] MEDS: fentaNYL citrate/PF 100 MCG/2 ML VIAL 50 MCG IVPUSH (10:26)
== END 2025-01-05 13:05 | disposition home or self-care (01) ==
LOC: HO.SSS 08:19
PROVIDERS: Physician Assistant Surgical; PCP Family Medicine; Visit Provider Surgery
DX: C34.32 Malignant neoplasm of lower lobe, left bronchus or lung (principal); J44.9 Chronic obstructive pulmonary disease, unspecified; K21.9 Gastro-esophageal reflux disease without esophagitis; E66.01 Morbid (severe) obesity due to excess calories; Z68.31 Body mass index [BMI] 31.0-31.9, adult; I45.10 Unspecified right bundle-branch block; E11.9 Type 2 diabetes mellitus without complications; E55.9 Vitamin D deficiency, unspecified; E78.5 Hyperlipidemia, unspecified; Z85.850 Personal history of malignant neoplasm of thyroid; G47.33 Obstructive sleep apnea (adult) (pediatric); E89.0 Postprocedural hypothyroidism; F25.9 Schizoaffective disorder, unspecified; Z79.82 Long term (current) use of aspirin; Z79.84 Long term (current) use of oral hypoglycemic drugs; Z79.85 Long-term (current) use of injectable non-insulin antidiabetic drugs; Z79.51 Long term (current) use of inhaled steroids; Z79.899 Other long term (current) drug therapy; Z88.5 Allergy status to narcotic agent; Z90.49 Acquired absence of other specified parts of digestive tract; F17.210 Nicotine dependence, cigarettes, uncomplicated
CPT/HCPCS: 32408; 71045; 82947; 88305; 88341; 88342; 99152; 99153; J2003; J2250; J2310; J3010

== ENCOUNTER → 2025-01-05 11:45 | Outpatient (BNV) | payer OTHER, SELFPAY | PROVIDERS: PCP Family Medicine; Visit Provider Radiology Diagnostic Radiology | DX: R91.8 Other nonspecific abnormal finding of lung field (principal) | CPT/HCPCS: 32408; 71045 ==

== ENCOUNTER 2025-01-13 09:17 | Outpatient (AMB) | payer OTHER, SELFPAY ==
--- NOTE | 2025-01-13 09:18 | MHC.OFFVIS ---
Intake Visit Reasons: Discuss lung bx~ 01-05-25 Intake Note: Patient her to discuss Lt lower lobe bx. Reports site healing well. Contract Sheltered Workshop Supervisor Required: No Accompanied by: Self / Same As Patient Allergies oxycodone [Percocet] Allergy (Intermediate, Verified 01/13/25 09:21) stomach pain SEASONAL ALLERGIES Allergy (Unknown, Uncoded 01/13/25 09:21) UNKNOWN HPI Comments Details: Patient was status post IR biopsy of left lower lobe lung mass. This is consistent with a [id number] lung cancer of the left lower lobe. Patient missed her appointment for pulmonary function tests which will be rescheduled. Patient was PET scan demonstrates isolated/early staged disease involving the left lower lobe only. PENDING SALE TO [facility] Medical History Incomplete right bundle branch block (RBBB) Uterine fibroid DANIEL (obstructive sleep apnea) Cervical cancer Schizoaffective disorder Pancreatitis Type 2 diabetes mellitus JESICA positive Vitamin D deficiency Postoperative hypothyroidism History of thyroid cancer Morbid obesity Sacroiliitis Multinodular goiter HLD (hyperlipidemia) COPD (chronic obstructive pulmonary disease) GERD (gastroesophageal reflux disease) Bipolar 1 disorder Hypercalcemia Goiter Hypothyroidism Surgical History Hx of total thyroidectomy Hx of tubal ligation Hx of cholecystectomy Family History Father Bipolar 1 disorder Mother Diabetes mellitus Hypertension Hyperlipidemia COPD (chronic obstructive pulmonary disease) Paternal Aunt Breast cancer Sister Cervical cancer Social History Household Members: Spouse and Children Household Members Other:: duplex Housing: Apartment Are you a primary manager intensive care unit to a significant other at home: No Do you presently have visiting nurse or other home services: No Alcohol intake: never Patient Tobacco Use Status: Former Tobacco user Tobacco use type: Cigarette Cigarettes Per Day: 2 Substance Use Type: Marijuana service: No Current occupational status: other 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 Cardio Other: Chest breath sounds bilaterally, consistent with COPD, HS 1 in 2 GI Other: Abdomen corpulent, soft, benign Assessment & Plan Assessment & Plan (1) Mass of lower lobe of left lung: Code(s): R91.8 - Other nonspecific abnormal finding of lung field Category: Surgical (2) Primary malignant neoplasm of left lower lobe of lung: Code(s): C34.32 - Malignant neoplasm of lower lobe, left bronchus or lung Category: Surgical Plan Patient will have PFT's rescheduled. In the meantime, presuming that these results are acceptable, risks, benefits, alternatives of thorascopic possible open left lower lobectomy were reviewed with the patient and included but not limited to bleeding, infection, recurrence with tumor, numbness, pain, scarring and the patient wishes to proceed. All questions answered. Arrangements were made for this. Coding Level of Care Code Est Pt Level 5 (64591) Diagnoses Mass of lower lobe of left lung R91.8 Primary malignant neoplasm of left lower lobe of lung C34.32
--- OUTSIDE RECORDS SUMMARY | 2025-01-13 10:19 | XMS_ITS | Encounter Summary ---
Author Organization [employer] [facility] Address [address] 7t [place] [address] Care Team Providers Care Channel Turner Name Role Phone Linda Murphy DO Primary Care Provider [phone] Dellogono Neri PharmD Unavailable Unavail able Antionette Murphy PharmD Unavailable [phone] Reason for Visit * Reason Comments Med Refill Encounter Details Date Type Department Care Team (Late st Contact Info) Description 04/05/2023 Refill [facility] [address] [place] [address] Linda Murphy DO [address] [place] [address] Social History Tobacco Use Types Packs/Day Years [...] Care Team (Late st Contact Info) Description 01/19/2025 11:45 AM EDT Office Visit [facility] MED[facility] [address] [place] [address] Linda Murphy DO [address] [place] [address] documented as of this encounter Goals Goal [...] documented as of this encounter Care Teams Channel Turner Relationship Specialty Start Date End Date Linda Murphy DO [address] [place] [address] PCP - General Family Medicine 11/24/12 Neri Yang, PharmD [address] [place] [address] Pharmacist Internal Medicine 11/23/22 10/17/23 Antionette Murphy PharmD [address] [place] [address] Pharmacist Internal Medicine 07/15/24 documented as of this encounter
--- OUTSIDE RECORDS SUMMARY | 2025-01-13 10:19 | XMS_ITS | Encounter Summary ---
Author Organization [employer] [facility] Address [address] [facility] 7t [place] [address] Care Team Providers Care Trim Master Operator Name Role Phone Linda Murphy DO Primary Care Provider [phone] Dellogono Neri PharmD Unavailable Unavail able Antionette Murphy PharmD Unavailable [phone] Reason for Visit * Reason Comments Med Refill Encounter Details Date Type Department Care Team (Late Contact Info) Description 04/10/2023 Refill [facility] [address] [place] [address] Linda Murphy DO [address] [place] [address] Social History Tobacco Use Types Packs/Day Years [...] Department Care Team (Late Contact Info) Description 01/19/2025 11:45 AM EDT Office Visit [facility] MEDIC[facility] [address] [place] [address] Linda Murphy DO [address] [place] [address] documented as of this encounter Goals Goal [...] documented as of this encounter Care Teams Trim Master Operator Relationship Specialty Start Date End Date [place] [address] PCP - General Family Medicine 11/24/12 Neri Yang, PharmD [address] [place] [address] Pharmacist Internal Medicine 11/23/22 10/17/23 Antionette Murphy, EricD [address] [place] [address] Pharmacist Internal Medicine 07/15/24 documented as of this encounter
--- OUTSIDE RECORDS SUMMARY | 2025-01-13 10:19 | XMS_ITS | Encounter Summary ---
Author Organization [employer] Address [address] [facility] 7t [place] [address] Care Team Providers Care President Educational Institution Name Role Phone Linda Murphy DO Primary Care Provider [phone] Antionette Murphy PharmD Unavailable [phone] Reason for Visit * Reason Comments Med Refill Encounter Details Date Type Department Care Team ([facility] st Contact Info) Description 07/03/2024 Refill [facility] [address] [place] [address] Linda Murphy DO [address] [place] [address] Tobacco dependence Social History Tobacco Use Types [...] Description 01/19/2025 11:45 AM EDT Office Visit [facility] [address] [place] [address] Linda Murphy DO [address] [place] [address] documented as of this encounter Goals Goal [...] documented as of this encounter Care Teams President Educational Institution Relationship Specialty Start Date End Date Linda Murphy DO [address] [place] [address] PCP - General Family Medicine 11/24/12 Antionette Murphy PharmD [address] [place] [address] Pharmacist Internal Medicine 07/15/24 documented as of this encounter
--- OUTSIDE RECORDS SUMMARY | 2025-01-13 10:19 | XMS_ITS | Clinical Summary ---
Author Organization [facility] Address [address] [place] [address] Phone Care Team Providers Care Piercing Specialist Name Role Phone Lvelian Linda Juaniot RAMESH Primary Care Provider [phone] Allergies No known active allergies Medications acetaminophen (TYLENOL 8 HOUR) 650 mg 8 hr tablet Take 1 tablet (650 mg total) by mouth every 8 (eight) hours if needed for mild pain. Do not crush, chew, or split. Active ARIPiprazole (ABILIFY) 20 mg tablet Take 1 tablet (20 mg total) by mouth 1 (one) time each day. Active ascorbic acid (VITAMIN C) 250 MG chewable tablet Chew 1 tablet (250 mg total). Active aspirin 81 mg EC tablet Take 1 tablet (81 mg total) by mouth 1 (one) time each day. Active atorvastatin (LIPITOR) 40 mg tablet Take 1 tablet (40 mg total) by mouth at bedtime. Active buPROPion SR (WELLBUTRIN SR) 150 mg 12 hr tablet Take 1 tablet (150 mg total) by mouth 2 (two) times a day. Do not crush, chew, or split. Active clonazePAM (KlonoPIN) 1 mg tablet Take 1 tablet (1 mg total) by mouth 2 (two) times a day. Max Daily Amount: 2 mg Active clotrimazole (LOTRIMIN) 1 % cream Apply 1 Application topically 2 (two) times a day. Active diclofenac (VOLTAREN) 1 % topical gel Apply 2 g topically 4 (four) times a day. Active ferrous fumarate (Ferrocite) 324 mg (106 mg iron) tablet Take by mouth. Ac tive Active Problems Problem Noted Date Diagnosed Date Allergic rhinitis 12/22/2024 Bipolar disorder 12/22/2024 DANIEL (obstructive sleep apnea) 12/22/2024 Hyperlipidemia 12/22/2024 Type 2 diabetes mellitus 12/22/2024 Fatty liver 12/22/2024 Status post thyroidectomy 12/22/2024 Hx of papillary thyroid carcinoma 12/22/2024 GERD (gastroesophageal reflux disease) Chronic low back pain 12/22/2024 Leukocytosis 12/22/2024 Toenail avulsion 12/22/2024 Plantar callus 12/22/2024 Onychomycosis 12/22/2024 Encounters Date Type Department Care Team Description 12/29/2024 1:45 PM EST Office Visit Orthopedic Surgery [facility] [address] [phone] Gutierrez Ruiz DPM 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); Metatarsalgia of right foot; Eccrine poroma of foot, left; Hammertoes of both feet; Dermatophytosis, nail from Last 3 Months Social History Tobacco Use Types Packs/Day Years Used Date Smoking Tobacco: Never Assessed Comments Unknown Sex and Gender Information Value Date Recorded Sex Assigned at Not on file Legal Sex Female 9:21 PM EST Gender Identity Not on file Sexual Orientation Not on file Last Filed Vital Signs Vital Sign Reading Time Taken Comments Blood Pressure - - Pulse - - Temperature - - Respiratory Rate - - Oxygen Saturation - - Inhaled Oxygen Concentration - - Weight 93.4 kg (206 lb) 12/29/2024 1:54 PM EST Height 170.2 cm (5' 7 ) 12/29/2024 1:54 PM EST Body Mass Index 32.26 12/29/2024 1:54 PM EST Plan of Treatment Upcoming Encounters Date Type Department Care Team (Late st Contact Info) Description 03/04/2025 9:15 AM EDT Office Visit Orthopedic Surgery [facility] [address] [phone] Gutierrez Ruiz DPM [address] [address] Health Maintenance Due Date Last Done Comments Diabetes: Annual Foot Exam 1982 Diabetes: Annual Retina Eye Exam 1982 Hepatitis A Vaccines (1 of 2 - Risk 2-dose series) 1991 Breast Cancer Screening 04/01/2021 04/01/2019 Colorectal Cancer Screening: Colonoscopy 09/24/2024 Depression Screening 09/24/2024 02/26/2023 HIV Screening 09/24/2024 Social Influencers of Health Screening 09/24/2024 Diabetes: Annual Urine Albumin-Creatinine Ratio (uACR) 12/23/2024 Diabetes: Blood Sugar Control Test (HGBA1C) 02/11/2025 08/13/2024 Cervical Cancer Screening: Pap Smear 02/15/2025 02/15/2022 Diabetes: Annual GFR (Glomerular Filtration Rate) 12/06/2025 12/06/2024 Cholesterol Screening (Lipid Panel) 08/13/2029 08/13/2024 DTaP,Tdap,and Td Vaccines (3 - Td or Tdap) 08/24/2032 08/24/2022, 04/23/2012 Hepatitis B Vaccines Completed 03/16/2016, 08/01/2015, 05/20/2015 Zoster Vaccines Completed 01/14/2023, 09/12/2022 Pneumococcal Vaccine: 50+ Years Completed 08/14/2023, 10/27/2012, 04/23/2012 Pneumococcal Vaccine: Pediatrics (0 to 5 Years) and At-Risk Patients (6 to 64 Years) Completed 08/14/2023, 10/27/2012, 04/23/2012 Hepatitis C Screening Completed 08/26/2023 Influenza Vaccine Completed 08/26/2024, , 08/24/2022, Additional [...] patient's age to complete this topic Meningococcal B Vacine Aged Out No lo nger eligible based on patient's age to complete this topic RSV Immunization Patients Under 20 months Aged Out No longer eligible based on patient's age to complete this topic Varicella Vaccines Aged Out No longer eligible based on patient's age to complete this topic Insurance [facility] Member Subscriber Plan / Payer (Ef fective 2013-Present) Name:Tisha Ruiz Relation to Subscriber:Self Name:Tisha Ruiz Payer ID:[id number] Group ID:[id number] Type:Not on file Address: [facility] [place] [address] Care Teams Piercing Specialist Relationship Specialty Start Date End Date Linda Murphy DO [address] [place] [address] PCP - General Internal Medicine 04/09/19
--- OUTSIDE RECORDS SUMMARY | 2025-01-13 10:19 | XMS_ITS | Encounter Summary ---
Author Organization [employer] Address [address] 7[address] [place] [address] Care Team Providers Care Evaluator Transfer Students Name Role Phone Linda Murphy DO Primary Care Provider DelNeri zavala PharmD Unavailable Unavail able Antionette Murphy PharmD Unavailable Reason for Visit * Reason Onset Date Comments Letter for School/Work 03/07/2023 Encounter Details Date Type Department Care Team ([facility] st Contact Info) Description 03/07/2023 Telephone [facility] MEDICINE [address] [place] [address] Linda Murphy DO [address] [place] [address] Letter for School/Work Social History Tobacco Use [...] mailed due to COVID Please contact at [phone] documented in this encounter Plan of Treatment Upcoming Encounters Date Type Department Care Team (Late st Contact Info) Description 01/19/2025 11:45 AM EDT Office Visit [facility] MEDICINE [address] [place] [address] Linda Murphy DO [address] [place] [address] documented as of this encounter Goals Goal [...] documented as of this encounter Care Teams Evaluator Transfer Students Relationship Specialty Start Date End Date Linda Murphy DO [address] [place] [address] PCP - General Family Medicine 11/24/12 Neri Yang, PharmD [address] [place] [address] Pharmacist Internal Medicine 11/23/22 10/17/23 Antionette Murphy PharmD [address] [place] [address] Pharmacist Internal Medicine 07/15/24 documented as of this encounter
--- OUTSIDE RECORDS SUMMARY | 2025-01-13 10:20 | XMS_ITS | Encounter Summary ---
Author Organization [employer] Address [address] [facility] [place] [address] Care Team Providers Care Aba Tutor Name Role Phone Katherine Linda Primary Care Provider [phone] Antionette Murphy PharmD Unavailable [phone] Reason for Visit * Reason Onset Date Comments Recommend REGIONAL TRANSFER LIAISON Tier 2 01/07/2025 Encounter Details Date Type Department Care Team ([facility] Contact Info) Description 01/07/2025 Telephone [facility] MEDICINE [address] [place] [address] No Lopez, KRYSTYNA Recommend REGIONAL TRANSFER LIAISON Tier 2 Social History Tobacco Use Types Packs/Day Years [...] encounter Miscellaneous Notes * Telephone Encounter - No Lopez RN - 01/07/2025 7:26 AM EST What REGIONAL TRANSFER LIAISON Tier would you like this patient to be? I recommend Tier 2, please let me know if you agree or would rather patient be in another REGIONAL TRANSFER LIAISON Tier. Tier 1 = HIGH RISK, Monthly REGIONAL TRANSFER LIAISON visits Tier 2 = MODerate RISK, Q3 Month visits Tier 3 = LOW RISK = Q4-6 month visits documented in this encounter Plan of Treatment Upcoming Encounters Date Type Department Care Team (Late st Contact Info) Description 01/19/2025 11:45 AM EDT Office Visit [facility] MEDICINE [address] [place] [phone] Linda Murphy DO [address] [place] [address] documented as of this encounter Goals Goal [...] documented as of this encounter Care Teams Aba Tutor Relationship Specialty Start Date End Date Linda Murphy DO [address] [place] [address] PCP - General Family Medicine 11/24/12 Antionette Murphy, Kaiden [address] [place] [address] [place] [phone] Pharmacist Internal Medicine 07/15/24 documented as of this encounter
--- OUTSIDE RECORDS SUMMARY | 2025-01-13 10:20 | XMS_ITS | Encounter Summary ---
Author Organization [employer] Address [address] [facility] 7t [place] [address] Care Team Providers Care Product Safety Technical Assistant Name Role Phone Linda Murphy DO Primary Care Provider [phone] Antionette Murphy PharmD Unavailable [phone] Reason for Visit * Reason Onset Date Comments Durable Medical Equipment 03/06/2024 Encounter Details Date Type Department Care Team ([facility] st Contact Info) Description 03/06/2024 Telephone [facility] MEDICINE [address] [place] [address] Linda Murphy DO [address] [place] [address] Durable Medical Equipment Social History Tobacco Use [...] enough money to get more: Never True 10/ Transportation Answer Date Recorded In the past [...] Description 01/19/2025 11:45 AM EDT Office Visit [facility] MEDICINE [address] [place] [address] Linda Murphy DO [address] [place] [address] documented as of this encounter Goals Goal [...] documented as of this encounter Care Teams Product Safety Technical Assistant Relationship Specialty Start Date End Date Linda Murphy DO [address] [place] [address] PCP - General Family Medicine 11/24/12 Antionette Murphy, EricD [address] [place] [address] Pharmacist Internal Medicine 07/15/24 documented as of this encounter
--- OUTSIDE RECORDS SUMMARY | 2025-01-13 10:20 | XMS_ITS | Encounter Summary ---
Author Organization [employer] Address [address] [place] [address] Care Team Providers Care Catcher Filter Tip Name Role Phone Katherine Linda Primary Care Provider [phone] Antionette Murphy PharmD Unavailable [phone] Reason for Visit * Reason Onset Date Comments NCNS for WATCH PARTS INSPECTOR RV today 01/07/2025 Encounter Details Date Type Department Care Team (Late st Contact Info) Description 01/07/2025 Telephone [facility] MEDICINE [address] [place] [address] No Lopez, RN NCNS for WATCH PARTS INSPECTOR RV today Social History Tobacco Use Types Packs/Day Years [...] is your housing situation today? I have chrsitie blanc 08/26/[address] you [...] Encounter - No Lopez RN - 01/07/2025 10:42 AM EST Pt was NCNS for WATCH PARTS INSPECTOR RV appt today. Pt cancelled WATCH PARTS INSPECTOR 12/29/24, 12/15/24 and 10/27/24. TC to patient, patient stated she forgot. Stated she has a lot going on currently. Reminded she's missed the last several appointments and needs to be seen. Rescheduled again 01/12/25 @ 10:30am. Will FYI PCP documented in this encounter Plan of Treatment Upcoming Encounters Date Type Department Care Team (Late st Contact Info) Description 01/19/2025 11:45 AM EDT Office Visit [facility] MEDICINE [address] [place] [address] Linda Murphy DO [address] [place] [address] documented as of this encounter Goals Goal [...] documented as of this encounter Care Teams Catcher Filter Tip Relationship Specialty Start Date End Date Linda Murphy DO [address] [place] [address] PCP - General Family Medicine 11/24/12 Antionette Murphy PharmD [address] [place] [address] Pharmacist Internal Medicine 07/15/24 documented as of this encounter
--- OUTSIDE RECORDS SUMMARY | 2025-01-13 10:20 | XMS_ITS | Encounter Summary ---
Author Organization [employer] Address [address] [facility] 7t [place] [address] Care Team Providers Care Operations Support Coordinator Name Role Phone Linda Murphy DO Primary Care Provider + [phone] Antionette Murphy PharmD Unavailable [phone] Encounter Details Date Type Department Care Team (Late st Contact Info) Description 12/15/2024 Orders Only GENERIC EXTERNAL DATA DEPARTMENT Provider, [...] Description 01/19/2025 11:45 AM EDT Office Visit [facility] MEDICINE [address] [place] [address] Linda Murphy DO [address] [place], [place] [phone] documented as of this encounter Goals Goal Patient Goal Type Associated Problems Recent Progress Patient-Stated? Author Hemoglobin A1c < 7 Result Component 7.4(08/13/2024 3:26 PM EDT) No eNri Yang, PharmD documented as of this encounter Procedures Procedure Name Priority Date/Time Associated Diagnosis Comments GLUCOSE, WHOLE BLOOD Routine 12/15/2024 9:37 AM EST APTT Routine 12/15/2024 9:21 AM EST PROTHROMBIN TIME-INR Routine 12/15/2024 9:21 AM EST documented in this encounter Results * (ABNORMAL) Glucose, Whole Blood (12/15/2024 9:37 AM EST) Glucose, Whole Blood 178(H) 60 - 115 mg/dL [facility] Comment:METER #: [id number] 12/15/2024 9:37 AM EST 12/15/2024 9:41 AM EST us Generic External Data Provider LAB BLOOD ORDERAB LES Final Result [facility] [address] [place] [phone] * (ABNORMAL) Partial Thromboplastin Time, Activated (APTT) (12/15/2024 9:21 AM EST) Partial Thromboplastin Time 40.1(H) 26.0 - 36.8 SEC [facility] Comment:For information rega rding the monitoring of direct thrombininhibitors, please refer to Pharmacy. 12/15/2024 9:21 AM EST 12/15/2024 9:24 AM EST Generic External Data Provider LAB BLOOD ORDERAB LES Final Result Performing Organization Address [facility] Co de Phone Number [facility] [address] [place] [phone] * (ABNORMAL) Prothrombin Time-INR (12/15/2024 9:21 AM EST) Prothrombin Time 9.9(L) 10.9 - 12.4 SEC [facility] INTERNATIONAL NORM RATIO 0.9 0.9 - 1.1 [facility] Comment:INTERNATIONAL NORMAL IZED RATIO (INR) REFERENCE RANGES Reference RangeFor patients not on anticoagulant therapy: 0.9 - 1.1INR ranges for oral anticoagulanttherapy:For prevention and treatment of venous thrombosis and pulmonary embolism: 2.0 - 3.0For acute myocardial infarction with aspirin therapy: 2.0 - 3.0For acute myocardial infarction without aspirin therapy: 3.0 - 4.0For patients with mechanical prosthetic heart valves: 2.5 - 3.5 12/15/2024 9:21 AM EST 12/15/2024 9:24 AM EST [employer] External Data Provider LAB BLOOD ORDERAB LES Final Result Performing Organization Address [facility] Co de Phone Number [facility] [address] [place] [phone] documented in this encounter Visit Diagnoses Not on filedocumented in this encounter Additional Health Concerns Assessment Noted Time PHQ-9 Depression Total Score: 0 02/27/20 23 11:42 AM EDT documented as of this encounter Care Teams Operations Support Coordinator Relationship Specialty Start Date End Date Linda Murphy DO [address] [place] [address] PCP - General Family Medicine 11/24/12 Antionette Murphy PharmD [address] [place] [address] Pharmacist Internal Medicine 07/15/24 documented as of this encounter
--- OUTSIDE RECORDS SUMMARY | 2025-01-13 10:20 | XMS_ITS | Encounter Summary ---
Author Organization [employer] Address [address] [facility] 7t [place] [address] Care Team Providers Care Trouble Locater Name Role Phone Linda Murphy DO Primary Care Provider [phone] Antionette Murphy PharmD Unavailable [phone] Reason for Visit * Reason Onset Date Comments Med Refill 12/18/2024 Encounter Details Date Type Department Care Team (Late st Contact Info) Description 12/18/2024 Refill [facility] MEDICINE [address] [place] [address] Linda Murphy DO [address] [place] [address] Type 2 diabetes mellitus without complication, without long-term current use of insulin ([facility]); Type 2 diabetes mellitus with other specified complication, unspecified whether terminal superintendent insulin use ([facility]/HCC); Chronic obstructive pulmonary disease, unspecified COPD type ([facility]) Social History Tobacco Use Types Packs/Day Years [...] the past 12 months, has t he Knowable, gas, oil or water company threatened to [...] Description 01/19/2025 11:45 AM EDT Office Visit [facility] MEDICINE [address] [place] [phone] Linda Murphy DO [address] [place] [address] documented as of this encounter Goals Goal Patient Goal Type Associated Problems Recent Progress Patient-Stated? Author Hemoglobin A1c < 7 Result Component 7.4(08/13/2024 3:26 PM EDT) No Neri Yang, PharmD documented as of this encounter Visit Diagnoses Diagnosis Type 2 diabetes mellitus without complication, without long-term current use of insulin ([facility]) Type 2 diabetes mellitus with other specified complication, unspecified whether chcf insulin use ([facility]) Chronic obstructive pulmonary disease, unspecified COPD type ([facility]) documented in this encounter Additional Health Concerns Assessment Noted Time PHQ-9 Depression Total Score: 0 02/27/20 23 11:42 AM EDT documented as of this encounter Care Teams Trouble Locater Relationship Specialty Start Date End Date Linda Murphy DO [address] [place] [address] PCP - General Family Medicine 11/24/12 Antionette Murphy, Kaiden [address] [place] [address] Pharmacist Internal Medicine 07/15/24 documented as of this encounter
--- OUTSIDE RECORDS SUMMARY | 2025-01-13 10:20 | XMS_ITS | Encounter Summary ---
Author Organization [employer] Address [address] [facility] [address] 7t [place] [address] Care Team Providers Care Slash Trimmer Name Role Phone Linda Murphy DO Primary Care Provider [phone] Antionette Murphy PharmD Unavailable [phone] Reason for Visit * Reason Onset Date Comments Med Refill 12/18/2024 Encounter Details Date Type Department Care Team (Late st Contact Info) Description 12/18/2024 Refill [facility] & PEDS [address] [place] [address] Linda Murphy DO [address] [facility] [place] [address] Acute post-traumatic headache, not intractable; Chronic obstructive [...] Description 01/19/2025 11:45 AM EDT Office Visit [facility] MEDICINE [address] [place] [address] Linda Murphy DO [address] [place] [address] documented as of this encounter Goals Goal [...] documented as of this encounter Care Teams Slash Trimmer Relationship Specialty Start Date End Date Linda Murphy DO [address] [place] [phone] PCP - General Family Medicine 11/24/12 Antionette Murphy PharmD [address] [place] [phone] Pharmacist Internal Medicine 07/15/24 documented as of this encounter
--- OUTSIDE RECORDS SUMMARY | 2025-01-13 10:20 | XMS_ITS | Encounter Summary ---
Author Organization [facility] Address [address] [place] [phone] Care Team Providers Care President Of The [place] Name Role Phone Joelle Murphyfer Juanito RAMESH Primary Care Provider [phone] Reason for Visit * Reason Comments Foot Pain DOCUMENT IMPROVEMENT SPECIALIST PLANTAR FASCITIS * Orthopedic (Routine) - Closed Specialty Diagnoses / Procedures Referred By Rolf pascual Referred To Contact Podiatry / Orthopaedic Surgery Diagnoses Plantar callus Procedures AMB REFERRAL TO PODIATRY Asuncion Bailey MD [address] [phone] Phone: tel: fax: Gutierrez Ruiz DPM [address] [address] Phone: tel: fax: Referral ID Status Reason Start Date Expiration Date V isits Requested Visits Authorized [id number] Closed Consult and Treat 1 Encounter Details Date Type Department Care Team (Late st Contact Info) Description 12/29/2024 1:45 PM EST Office Visit Orthopedic Surgery - [address] [phone] Gutierrez Ruiz DPM [address] [address] 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); Metatarsalgia of right foot; Eccrine poroma of foot, left; Hammertoes of both feet; Dermatophytosis, nail Social History Tobacco Use Types Packs/Day Years Used Date Smoking Tobacco: Never Assessed Comments Unknown Sex and Gender Information Value Date Recorded Sex Assigned at Not on file Legal Sex Female 9:21 PM EST Gender Identity Not on file Sexual Orientation Not on file documented as of this encounter Last Filed Vital Signs Vital Sign Reading Time Taken Comments Blood Pressure - - Pulse - - Temperature - - Respiratory Rate - - Oxygen Saturation - - Inhaled Oxygen Concentration - - Weight 93.4 kg (206 lb) 12/29/2024 1:54 PM EST Height 170.2 cm (5' 7 ) 12/29/2024 1:54 PM EST Body Mass Index 32.26 12/29/2024 1:54 PM EST documented in this encounter Progress Notes * Gutierrez Ruiz DPM - 12/29/2024 1:45 PM EST Referring MD: Asuncion Bailey MD Last PCP visit: 12/07/2024 IDENTIFIER: @TITLE@ Sara is a 54 y.o. year old female who presents for consultation. CC: Pain in feet HPI: Patient presents to office today for initial diabetic foot evaluation as recommended by their primary care physician. Patient states that they have been diabetic for the past few years and has some tingling numbness in the feet bilaterally. Denies any history of ulceration, or infection. Patient would like to inquire about their pedal hygiene, as their toenails have become elongated and painful. Patient is not using antifungals at this time. Patient is wearing good supportive shoes at this time. Patient reports mild calluses that are becoming bothersome. Patient with minimal other pedal complaints at this time. Patient's FBS this AM was 20 Recent A1C is %. 7.5% ROS: GENERAL: Pt denies nausea, fever, vomiting, chills, or shortness of breath. Pt in NAD. CARDIOLOGY: pt denies chest pain, palpitations LUNGS: pt denies shortness of breath MUSCULOSKELETAL: See HPI, otherwise no joint pain or swelling, back pain, or muscle pain. SKIN: see HPI, otherwise no lesions, rash or itching NEURO: No persistent headache, weakness or numbness The remainder of the review of systems is noncontributory PAST MEDICAL HISTORY: Patient Active Problem List Diagnosis Allergic rhinitis Bipolar disorder (CMS/HCC) DANIEL (obstructive sleep apnea) Hyperlipidemia Type 2 diabetes mellitus (CMS/HCC) Fatty liver Status post thyroidectomy Hx of papillary thyroid carcinoma GERD (gastroesophageal reflux disease) Chronic low back pain Leukocytosis Toenail avulsion Plantar callus Onychomycosis SOCIAL HISTORY: Social History Tobacco Use Smoking status: Not on file Smokeless tobacco: Not on file Substance Use Topics Alcohol use: Not on file ACTIVE MEDICATIONS: No outpatient medications have been marked as taking for the 12/29/24 encounter (Office Visit) with Gutierrez Ruiz DPM. ALLERGIES: @ALL@ PHYSICAL EXAM: Height 1.702 m (67 ), weight 93.4 kg (206 lb). PODIATRIC EXAMINATION: GENERAL: Patient appears well nourished, with NAD. VASCULAR: Dorsalis pedis pulses are 2/4 bilaterally and Posterior tibial pulses are 2/4 bilaterally. Capillary filling time within normal limits the digits. No pallor on elevation or rubor on dependency. Positive hair growth. No varicosities. Denies rest pain or claudication pain. NEUROLOGICAL: Sharp/dull sensation intact, protective sensation intact on Nicholson. Peripheral neuropathy throughout the feet bilaterally ORTHOPEDIC: Good muscle strength 5/5 of all flexors and extensors. Dorsi flexion of ankle ,10 degrees, plantar flexion WNL. No muscle atrophy. Increased rigid contractures of digits 2 through 5 with pain on palpation of the metatarsals bilaterally. DERMATOLOGICAL:.Eccrine poroma to the plantar aspect of the left and right foot near the midfoot. Normal skin temperature, normal skin turgor. Nails are elongated dystrophic discolored x 10 with subungual debris BIOMECHANICS: STJ ROM wnl, MTJ ROM wnl, 1st MPJ ROM wnl. IMPRESSION: 1. Controlled type 2 diabetes with neuropathy (CMS/HCC) 2. Metatarsalgia of right foot 3. Eccrine poroma of foot, left 4. Hammertoes of both feet 5. Dermatophytosis, nail PLAN: Pt was seen and examined, history reviewed. Patient educated on the importance of good pedal hygiene and tight blood glucose control. Patient encouraged to maintain a healthy lifestyle with a well-balanced diet. Patient should never go barefoot and wear supportive shoe gear. Patient should aim for A1c less than 7% every month. Continue with regular appointments with PMD or digital marketing analyst for tight medical management Patient found to have contracted and hammered digits of bilateral forefoot. Due to patients currentage and activity level, will continue with conservative management of these deformities. There are devices will help reduce chance of irritation, pressure points, blisters, and/or infection. Patient with mild complaints of discomfort to the balls of their feet. Clinical exam confirm that its likely secondary to overloading the forefoot. Patient would benefit from additional cushion to help redistribute the pressure to the central portion of the foot. Patient shown different offloading measures (metatarsal pads). [id number]: Destruction of eccrine poroma left foot: Verbal informed consent was obtained from the patient. Debrided poroma with a scalpel. Followed by occlusive dressing consisting of salinocaine to leave intact for 24-48 hours. The patient tolerated the procedure well. Nail debridement performed to nails 1-5 bilateral as nails were described to be causing pain and difficulty for walking while in shoegear at their previous length. They were debrided in thickness andlength, with no incident. Clinical evidence of mycosis is documented which required active treatment. Patient expressed immediate relief. Patient is to RTC in 9 weeks Gutierrez Ruiz DPM documented in this encounter Plan of Treatment Upcoming Encounters Date Type Department Care Team (Late st Contact Info) Description 03/04/2025 9:15 AM EDT Office Visit Orthopedic Surgery - [place] [address] [phone] Gutierrez Ruiz DPM [address] [address] documented as of this encounter Visit Diagnoses Diagnosis Controlled type 2 diabetes with neuropathy (CMS/[facility])- Primary Type II or unspecified type diabetes mellitus with neurological manifestations, not stated as uncontrolled Metatarsalgia of right foot Eccrine poroma of foot, left Hammertoes of both feet Dermatophytosis, nail Dermatophytosis of nail documented in this encounter Historical Medications * This list may reflect changes made after this encounter. ferrous fumarate (Ferrocite) 324 mg (106 mg iron) tablet Take by mouth. diclofenac (VOLTAREN) 1 % topical gel Apply 2 g topically 4 (four) times a day. clotrimazole (LOTRIMIN) 1 % cream Apply 1 Application topically 2 (two) times a day. clonazePAM (KlonoPIN) 1 mg tablet Take 1 tablet (1 mg total) by mouth 2 (two) times a day. Max Daily Amount: 2 mg buPROPion SR (WELLBUTRIN SR) 150 mg 12 hr tablet Take 1 tablet (150 mg total) by mouth 2 (two) times a day. Do not crush, chew, or split. atorvastatin (LIPITOR) 40 mg tablet Take 1 tablet (40 mg total) by mouth at bedtime. aspirin 81 mg EC tablet Take 1 tablet (81 mg total) by mouth 1 (one) time each day. ascorbic acid (VITAMIN C) 250 MG chewable tablet Chew 1 tablet (250 mg total). ARIPiprazole (ABILIFY) 20 mg tablet Take 1 tablet (20 mg total) by mouth 1 (one) time each day. acetaminophen (TYLENOL 8 HOUR) 650 mg 8 hr tablet Take 1 tablet (650 mg total) by mouth every 8 (eight) hours if needed for mild pain. Do not crush, chew, or split. added in this encounter Care Teams President Of The [place] Relationship Specialty Start Date End Date Linda Murphy DO [address] [place] [address] PCP - General Internal Medicine 04/09/19 documented as of this encounter
--- OUTSIDE RECORDS SUMMARY | 2025-01-13 10:20 | XMS_ITS | Encounter Summary ---
Author Organization [employer] Address [address] [facility] [address] 7t [place] [address] Care Team Providers Care Retail Pricing Coordinator Name Role Phone Linda Murphy DO Primary Care Provider [phone] Antionette Murphy PharmD Unavailable [phone] Reason for Visit * Reason Onset Date Comments Medication Question 11/13/2023 Encounter Details Date Type Department Care Team ([facility] st Contact Info) Description 11/13/2023 Telephone [facility] MEDICINE 230 [place] [address] Linda Murphy DO 230 [place] [address] Medication Question Social History Tobacco Use Types [...] Miscellaneous Notes * Telephone Encounter - Sri Wilburn - 11/13/2023 12:40 PM EST Tc from pt requesting status on a new nasal spray and allergy medication. Spoke with PCP on 11/08 Physical appointment. Please contact pt at [phone] documented in this encounter Plan of Treatment Upcoming Encounters Date Type Department Care Team (Late st Contact Info) Description 01/19/2025 11:45 AM EDT Office Visit [facility] MEDICINE [address] [place] [address] Linda Murphy DO [address] [place] [address] documented as of this encounter Goals Goal [...] documented as of this encounter Care Teams Retail Pricing Coordinator Relationship Specialty Start Date End Date Linda Murphy DO [address] [place] [phone] PCP - General Family Medicine 11/24/12 Antionette Murphy, Kaiden [address] [place] [phone] Pharmacist Internal Medicine 07/15/24 documented as of this encounter
--- OUTSIDE RECORDS SUMMARY | 2025-01-13 10:20 | XMS_ITS | Encounter Summary ---
Author Organization [employer] [facility] Address [address] [facility] 7t [place] [address] Care Team Providers Care Circuit Design Engineer Name Role Phone Linda Murphy DO Primary Care Provider [phone] Dellogla Neri PharmD Unavailable Unavail able Antionette Murphy PharmD Unavailable Reason for Visit * Reason Comments Med Refill Encounter Details Date Type Department Care Team (Late Contact Info) Description 07/08/2023 Refill [facility] MEDICINE [address] [place] [phone] Linda Murphy DO [address] [place] [address] Pain Social History Tobacco Use Types Packs/Day [...] Description 01/19/2025 11:45 AM EDT Office Visit [facility] MEDICINE [address] [place] [address] Linda Murphy DO [address] [place] [address] documented as of this encounter Goals Goal [...] documented as of this encounter Care Teams Circuit Design Engineer Relationship Specialty Start Date End Date Linda Murphy DO [address] [place] [address] PCP - General Family Medicine 11/24/12 Neri Yang, PharmD [address] [place] [phone] Pharmacist Internal Medicine 11/23/22 10/17/23 Antionette Murphy PharmD [address] [place] [phone] Pharmacist Internal Medicine 07/15/24 documented as of this encounter
--- OUTSIDE RECORDS SUMMARY | 2025-01-13 10:20 | XMS_ITS | Encounter Summary ---
Author Organization [employer] Address [address] [facility] [address]t [place] [address] Care Team Providers Care Dental Hygiene Administrative Assistant Name Role Phone Katherine Linda Primary Care Provider + [phone] Antionette Murphy PharmD Unavailable [phone] Reason for Visit * Reason Onset Date Comments NCNS TAPE MAKER RV today 01/12/2025 Encounter Details Date Type Department Care Team (Late st Contact Info) Description 01/12/[address] [facility] MEDICINE [address] [place] [address] No Lopez RN NCNS TAPE MAKER RV today Social History Tobacco Use Types [...] Telephone Encounter - No Lopez RN - 01/12/2025 11:14 AM EST Pt was NCNS for TAPE MAKER RV today. Previous to today: 01/07/25 - Pt NCNS TAPE MAKER RV 12/29/24 - Pt cancelled TAPE MAKER RV 12/15/24 - Pt cancelled TAPE MAKER RV 10/27/24 - Pt cancelled TAPE MAKER RV TC to patient, no answer. L/M asking her to call back to reschedule appt. Will update PCP on missed appts documented in this encounter Plan of Treatment Upcoming Encounters Date Type Department Care Team (Late st Contact Info) Description 01/19/2025 11:45 AM EDT Office Visit [facility] MEDICINE [address] [place] [address] Linda Murphy DO [address] [place] [address] documented as of this encounter Goals Goal [...] documented as of this encounter Care Teams Dental Hygiene Administrative Assistant Relationship Specialty Start Date End Date Linda Murphy DO [address] [place] [address] PCP - General Family Medicine 11/24/12 Antionette Murphy, Kaiden [address] [place] [address] Pharmacist Internal Medicine 07/15/24 documented as of this encounter
--- OUTSIDE RECORDS SUMMARY | 2025-01-13 10:20 | XMS_ITS | Encounter Summary ---
Author Organization [employer] Address [address] [place] [address] 7t [place] [address] Care Team Providers Care Boat Fueler Name Role Phone Linda Murphy DO Primary Care Provider [phone] DelNeri zavala PharmD Unavailable Unavail able Antionette Murphy PharmD Unavailable [phone] Reason for Referral * Imaging (Routine) - Canceled Specialty Diagnoses / Procedures Referred By Rolf pascual Referred To Contact Radiology Diagnoses Hilar mass Procedures CT Chest w/o Contrast Nora Astudillo FNP [address] [place] [address] Phone: tel: fax: [address] Phone: tel: fax: Referral ID Status Reason Start Date Expiration Date V isits Requested Visits Authorized [id number] Canceled 10/11/2023 10/10/2024 1 1 Encounter Details Date Type Department Care Team (Late st Contact Info) Description 10/11/2023 Orders Only [facility] MED & PEDS [address] [place] [address] Nora Astudillo FNP [address] [place] [address] Hilar mass (Primary Dx) Social History Tobacco [...] Description 01/19/2025 11:45 AM EDT Office Visit [facility] MEDICINE [address] [place] [address] Linda Murphy DO [address] [place] [address] Scheduled Orders Name Type Priority Associated Diagnoses [...] documented as of this encounter Care Teams Boat Fueler Relationship Specialty Start Date End Date Linda Murphy DO [address] [place] [address] PCP - General Family Medicine 11/24/12 Neri Yang, PharmD [address] [place] [address] Pharmacist Internal Medicine 11/23/22 10/17/23 Antionette Murphy, Kaiden [address] [place] [address] Pharmacist Internal Medicine 07/15/24 documented as of this encounter
--- OUTSIDE RECORDS SUMMARY | 2025-01-13 10:20 | XMS_ITS | Encounter Summary ---
Author Organization [employer] Address [address]t [place] [address] Care Team Providers Care Cat Driver Name Role Phone Linda Murphy DO Primary Care Provider [phone] Antionette Murphy PharmD Unavailable [phone] Reason for Visit * Reason Comments Med Refill Encounter Details Date Type Department Care Team ([facility] st Contact Info) Description 02/23/2024 Refill [facility] [address] [place] [address] Linda Murphy DO [address] [place] [address] Chronic obstructive pulmonary disease, unspecified COPD type [...] Description 01/19/2025 11:45 AM EDT Office Visit [facility] [address] [place] [phone] Linda Murphy DO [address] [place] [address] documented as of this encounter Goals Goal [...] documented as of this encounter Care Teams Cat Driver Relationship Specialty Start Date End Date Linda Murphy DO [address] [place] [address] [phone] PCP - General Family Medicine 11/24/12 Antionette Murphy PharmD [address] [place] [address] [phone] Pharmacist Internal Medicine 07/15/24 documented as of this encounter
--- OUTSIDE RECORDS SUMMARY | 2025-01-13 10:20 | XMS_ITS | Encounter Summary ---
Author Organization [employer] Address [address] [facility] 7[address] [place] [address] Care Team Providers Care Trimmer Press Clippings Name Role Phone Linda Murphy DO Primary Care Provider [phone] Antionette Murphy PharmD Unavailable [phone] Reason for Visit * Reason Comments Med Refill Encounter Details Date Type Department Care Team ([facility] st Contact Info) Description 11/24/[address] [facility] [address] [place] [address] Linda Murphy DO [address] [place] [address] Social History Tobacco Use Types Packs/Day Years [...] AM EDT Office Visit [facility] [address] [place] [phone] Linda Murphy DO [address] [place] [address] documented as of this encounter Goals Goal [...] documented as of this encounter Care Teams Trimmer Press Clippings Relationship Specialty Start Date End Date Linda Murphy DO [address] [place] [phone] PCP - General Family Medicine 11/24/12 Antionette Murphy PharmD [address] [place] [phone] Pharmacist Internal Medicine 07/15/24 documented as of this encounter
--- OUTSIDE RECORDS SUMMARY | 2025-01-13 10:20 | XMS_ITS | Encounter Summary ---
Author Organization [employer] Address [address] [place] [address] Care Team Providers Care Transportation Superintendent Name Role Phone Joelle Murphyfer Primary Care Provider [phone] Antionette Murphy PharmD Unavailable [phone] Encounter Details Date Type Department Care Team (Late st Contact Info) Description 01/05/2025 Orders Only GENERIC EXTERNAL DATA DEPARTMENT Provider, [...] Description 01/19/2025 11:45 AM EDT Office Visit [facility] [address] [place], [place] [phone] Linda Murphy DO [address] [place], [place] [phone] documented as of this encounter Goals Goal Patient Goal Type Associated Problems Recent Progress Patient-Stated? Author Hemoglobin A1c < 7 Result Component 7.4(08/13/2024 3:26 PM EDT) No Neri Yang, PharmD documented as of this encounter Procedures Procedure Name Priority Date/Time Associated Diagnosis Comments XR CHEST 1 VIEW Routine 01/05/2025 12:41 PM EST XR CHEST 1 VIEW Routine 01/05/2025 11:45 AM EST GROSS AND MICROSCOPIC LEVEL 4 Routine 01/05/2025 10:[address] BIOPSY LUNG LEFT Routine 01/05/2025 1 0:18 AM EST GLUCOSE, WHOLE BLOOD Routine 01/05/2025 9:48 AM EST documented in this encounter Results * XR Chest 1 View (01/05/2025 12:41 PM EST) Anatomical Region Laterality Modality Chest Radiographic Rosaura ging 01/05/2025 12:4 1 PM EST Narrative 01/06/2025 9:00 AM EST ? [facility] [facility] ?[address] ?[place] [address] ?XRay Report ? Signed ? Patient: Kiniel,Tisha ?MR#: [id number] ?? 61 ? : 1970 ?Acct:[id number] ? Age/Sex: 54 / F ?ADM Date: 01/05/25 ? Loc: HO.SSS ? Attending Dr: Mario Hoyt MD ? Ordering Physician: Rogelio Sales ?? Date of Service: 01/05/25 ?? Procedure(s): XR chest 1V ?? Accession Number(s): [id number] ? cc: Linda Murphy DO; Rogelio Sales ? EXAMINATION: ??XR CHEST 1 VIEW ? HISTORY: s/p left lung bx ??2hr ? COMPARISON: Comparison is made with the prior examination performed ?? earlier in the day at 11:32 AM. ? FINDINGS: ??A single AP portable view of the chest performed at 12:30 PM ?? is submitted. The patient's known left lung nodule is not well ?? visualized. ??There is no pleural effusion, pneumothorax, or pulmonary ?? vascular congestion. ??The heart is normal in size. ??There is ?? degenerative disc disease of the spine. ? XR/XR chest 1V ?? IMPRESSION: ?? No pneumothorax. ? Electronically signed by: ??Dillon Botello MD ??01/06/2025 08:57 AM EST ? Dictated By: ?Dillon Botello MD ? Signed By: ?<Electronically signed by Dillon Botello MD in OV> ?01/06/25 0857 ? DD/ 1241 ? TD/TT: 01/05/25 1241 ? [employer] Helper: ? Procedure Note Gonzalez, Image - 01/06/[address] [address] XRay Report Signed Patient: Asmita Ruiz#: [id number] 61 : 1970Acct:[id number] Age/Sex: 54 / FADM Date: 01/05/25 Loc: HO.SSS Attending Dr: Mario Hoyt MD Ordering Physician: Rogelio Sales Date of Service: 01/05/25 Procedure(s): XR chest 1V Accession Number(s): [id number] cc: Linda Murphy DO; Rogelio Sales EXAMINATION: XR CHEST 1 VIEW HISTORY: s/p left lung bx 2hr COMPARISON: Comparison is made with the prior examination performed earlier in the day at 11:32 AM. FINDINGS: A single AP portable view of the chest performed at 12:30 PM is submitted. The patient's known left lung nodule is not well visualized. There is no pleural effusion, pneumothorax, or pulmonary vascular congestion. The heart is normal in size. There is degenerative disc disease of the spine. XR/XR chest 1V IMPRESSION: No pneumothorax. Electronically signed by: Dillon Botello MD 01/06/2025 08:57 AM EST RP Dictated By: Dillon Botello MD Signed By: <Electronically signed by Dillon Botello MD in OV> 01/06/25 0857 DD/ 1241 TD/TT: 01/05/25 1241 [employer]S Helper: [facility] External Provider IMG XR PROCEDURES Final Result * XR Chest 1 View (01/05/2025 11:45 AM EST) Anatomical Region Laterality Modality Chest Radiographic Rosaura ging 01/05/2025 11:4 5 AM EST Narrative 01/05/2025 11:56 AM EST ? [facility] ?[address] ?[place] [address] ?XRay Report ? Signed ? Patient: Sara,Tisha ?MR#: [id number] ?? 61 ? : 1970 ?Acct:[id number] ? Age/Sex: 54 / F ?ADM Date: 02/25/25 ? Loc: HO.SSS ? Attending Silva Hoyt MD ? Ordering Physician: Rogelio Sales ?? Date of Service: 01/05/25 ?? Procedure(s): XR chest 1V ?? Accession Number(s): [id number] ? cc: Linda Murphy DO; Rogelio Sales ? EXAMINATION: ?? XR CHEST ? CLINICAL INFORMATION: ?? s/p left lung biopsy ? COMPARISON: ?? None available. ? TECHNIQUE: ?? Frontal view of the chest was obtained. ? FINDINGS: ?? The cardiac, hilar, and mediastinal contours are normal. ? Extremely subtle 1.0 cm nodule left midlung. Lungs otherwise clear. ?? No pneumothorax or effusion. ? No focal osseous or soft tissue abnormality. ? XR/XR chest 1V ?? IMPRESSION: ?? No pneumothorax post left lung biopsy. ? Electronically signed by: ??Lexa Lei MD ??01/05/2025 11:54 AM EST RP ? Dictated By: ?Lexa Lei MD ? Signed By: ?<Electronically signed by Lexa Lei MD in OV> ?01/05/25 1154 ? DD/ 1145 ? TD/TT: 01/05/25 1145 ? [employer] Helper: ? Procedure Note Donkatlynter, Image - 01/05/2025 [place] [address] XRay Report Signed Patient: Ayanna RuiznMR#: [id number] 61 : 1970Acct:[id number] Age/Sex: 54 / FADM Date: 01/05/25 Loc: .[facility] Attending Dr: Mario Hoyt MD Ordering Physician: Rogelio Sales Date of Service: 01/05/25 Procedure(s): XR chest 1V Accession Number(s): [id number] cc: Linda Murphy DO; Rogelio Sales EXAMINATION: XR CHEST CLINICAL INFORMATION: s/p left lung biopsy COMPARISON: None available. TECHNIQUE: Frontal view of the chest was obtained. FINDINGS: The cardiac, hilar, and mediastinal contours are normal. Extremely subtle 1.0 cm nodule left midlung. Lungs otherwise clear. No pneumothorax or effusion. No focal osseous or soft tissue abnormality. XR/XR chest 1V IMPRESSION: No pneumothorax post left lung biopsy. Electronically signed by: Lexa Lei MD 01/05/2025 11:54 AM EST Dictated By: Lexa Lei MD Signed By: <Electronically signed by Lexa Lei MD in OV> 01/05/25 1154 DD/ 1145 TD/TT: 01/05/25 1145 [employer]per: [facility] External Provider IMG XR PROCEDURES Final Result * Gross and Microscopic Level 4 (01/05/2025 10:57 AM EST) 01/05/2025 10:5 7 AM EST 01/05/2025 11:19 AM EST Narrative [facility] - 01/07/2025 2:12 PM EST ----- ------- Name: Tisha Ruiz ? Age/Sex: 54/F ? : 1970 Unit#: [id number] ?? Attend Dr: Mario Hoyt MD ?Re01/05/25 ?Status: DEP SDC ? Location: HO.SSS ?Disch: ? ----- ------- SPEC : [id number] ?RECD: 01/05/25-1119 ? STATUS: ??SOUT ? REQ NUM: [id number] ? HILARY: 01/05/25-105 ? SUBM DR: Rogelio Sales ? ENTERED: ??01/05/25-1 ?SP TYPE: Surgical ? OTHR DR: Linda Murphy DO ?Mario Hoyt MD ORDERED: ??Gross Micro L4, IHC, Add. immunos, Napsin, TTF-1, NSCLC Lung bx ?Addendum Addendum ??1 ?Entered: 01/07/25-1406 Immunostains show the tumor is positive for TTF 1 and Napsin A, confirming pulmonary origin. Controls stain appropriately. PD-L1 and molecular studies will be attempted but the tissue is scant; report to follow. Addendum Signed (signature on file) Anuradha Bateman 01/07/25 1412 ? ----- ------- ? Diagnosis ?? Lung, left lower lobe nodule, core biopsy: ??Adenocarcinoma. ? Comment: ??Immunostains pending; addendum to follow. ??Molecular studies will be attempted. ?Clinical History PET avid 1.2 cm LLL lung nodule ?Microscopic Description Microscopic sections show scant tissue with atypical columnar epithelium lining alveolar spaces and in small groups/acini within inflamed fibrous tissue. ??The malignant cells have moderate to abundant pale vesicular cytoplasm with enlarged, round to oval nuclei with nucleoli. ? Material Received ?? LLL lung nodule-3x20 g cores ? Gross Description Received in formalin labeled ?left lung? are 2 minute and 0.4 cm in greatest dimension irregular shards and cylindrical threads of espinoza-white tissue, submitted in toto in a cassette labeled A. ??The formalin is retained. CEDS ? CONTINUED ON NEXT PAGE ----- ------- Name: Tisha Ruiz ? Age/Sex: 54/F ? : 1970 Unit#: [id number] ?? Attend Dr: Mario Hoyt MD ?Re01/05/25 ?Status: DEP SDC ? Location: HO.SSS ?Disch: ? ----- ------- SPEC : [id number] ?RECD: 01/05/25-1119 ? STATUS: ??SOUT ? REQ NUM: [id number] ? HILARY: 01/05/25-1057 ? SUBM DR: Rogelio Sales ? ENTERED: ??01/05/25-1120 ?SP TYPE: Surgical ? OTHR DR: Linda Murphy DO ?Mario Hoyt MD ORDERED: ??Gross Micro L4, IHC, Add. immunos, Napsin, TTF-1, NSCLC Lung bx ? Gross Description ?(Continued) This case was reviewed intradepartmentally. ??Results given to EDWARD Dixon and Dr. Hoyt on 01/06/2025 at 17:10. Special studies ordered and performed: ??Immunostains for TTF-1 and Napsin A on A1. Copies To: ?? Linda Murphy DO ?? [facility] ?? [address] ?? [place] [address] ?? [phone] ?? Mario Hoyt MD ?? [facility] ?? [address] ?? [place] ?? [phone] ?? [email or web address] ?? Rogelio Sales ?? [address] ?? [place] [address] ?? [phone] ?? [email or web address] ----- ------- Signed (signature on file) Anuradha Bateman 01/06/251717 ? ----- ------- ? END OF REPORT ? us Generic External Data Provider LAB CYTOLOGY ANDERSON VALENTINO Final Result [facility] [address] [facility] [address] [place] [address] [phone] * CT Biopsy Lung Left (01/05/2025 10:18 AM EST) Anatomical Region Laterality Modality Computed Tomogra phy 01/05/2025 10:1 8 AM EST Narrative 01/06/2025 2:23 PM EST ? [facility] ?[address] ?[place] [address] ? CT Scan Report ? Signed ? Patient: Kiniel,Tisha ?MR#: [id number] ?? 61 ? : 1970 ?Acct:[id number] ? Age/Sex: 54 / F ?ADM Date: 01/05/25 ? Loc: HO.SSS ? Attending Dr: Mario Hoyt MD ? Ordering Physician: Mario Hoyt MD ?? Date of Service: 01/05/25 ?? Procedure(s): CT biopsy lung LT ?? Accession Number(s): [id number] ? cc: Linda Murphy DO; Mario Hoyt MD ? Report Number: ?? [id number]: Total DLP = ??490.00 mGy-cm ?? 54-year-old female with enlarging left lower lobe lung nodule. Thoracic ?? surgery requests biopsy. ? PROCEDURES: ?? 1. Limited preprocedure CT of the chest. Permanent images saved in PACS. ?? 2. CT-guided biopsy of the left lower lobe lung nodule ?? 3. Limited postprocedure CT of the chest. Permanent images saved in ?? PACS. ? CLINICIANS: ?? Rogelio Sales PA-C ? MEDICATIONS: ?? -Versed 1 mg, Fentanyl 50 mcg, and lidocaine 1% 10 mL SQ ?? -Antibiotics: None ?? -For additional details, please see nursing flowsheet. ? COMPLICATIONS: None ?? ESTIMATED BLOOD LOSS: < 5 ml ?? CONTRAST: None ?? SPECIMENS: 3 x 20 g cores were sent for pathology ?? MODERATE SEDATION TIME: 26 min ? PROCEDURE NOTE: ?? The procedure, risks, benefits, and alternatives were carefully ?? explained to the patient and written informed consent was obtained. The ?? patient was placed in the right lateral decubitus position on the CT ?? table. A timeout was performed. A limited CT of the chest was performed ?? to localize the left lung nodule and choose appropriate needle entry ?? and trajectory. The patient was prepped and draped in usual sterile ?? fashion. ? The skin and deeper soft tissues were anesthetized with lidocaine. ?? Under CT guidance, a 19 gauge trocar needle was advanced to the lung ?? nodule. A 20 gauge biopsy device was inserted through the trocar needle ?? and advanced into the lesion. A total of 3 cores were performed. The ?? specimens were placed in formalin and sent to pathology. A total of 10 ?? mL of nonclotted blood was obtained from the patient's IV by the ?? nursing staff. A blood patch was then administered through the trocar ?? needle. The needle was removed. A dry dressing was applied and secured ?? with Tegaderm. A limited postprocedure CT of the chest was performed, ?? which did not demonstrate any pneumothorax or hemothorax. There were no ?? immediate complications. ? The patient was stable after the procedure and was transferred to the ?? post anesthesia care unit. ? The procedure was done under moderate sedation with a dedicated nurse ?? for monitoring of vital signs. ? CT/CT biopsy lung LT ?? Impression: ?? CT-guided left lower lobe lung nodule biopsy ? This procedure was performed by Rogelio Sales PA-C and supervised by ?? [place]. ? Electronically signed by: ??Bharathi Land MD ??01/06/2025 02:20 PM EST RP ? Dictated By: ?Rogelio Sales ? Signed By: ?<Electronically signed by Rogelio Sales in OV> ? 01/06/25 1420 ?<Electronically signed by Bharathi Land MD in OV> ? 01/06/25 1423 ? DD/ 1018 ? TD/TT: 01/05/25 1119 ? [employer]S Helper: ? Procedure Note Gonzalez, Image - 01/06/[address] [place] [address] [address] Scan Report Signed Patient: Ayanna RuizNYR#: [id number] 61 : 1970Acct:[id number] Age/Sex: 54 / FADM Date: 01/05/25 Loc: HO.SSS Attending Dr: Mario Hoyt MD Ordering Physician: Mario Hoyt MD Date of Service: 01/05/25 Procedure(s): CT biopsy lung LT Accession Number(s): [id number] cc: Linda Murphy DO; Mario Hoyt MD Report Number: [id number]: Total DLP = 490.00 mGy-cm 54-year-old female with enlarging left lower lobe lung nodule. Thoracic surgery requests biopsy. PROCEDURES: 1. Limited preprocedure CT of the chest. Permanent images saved in PACS. 2. CT-guided biopsy of the left lower lobe lung nodule 3. Limited postprocedure CT of the chest. Permanent images saved in PACS. CLINICIANS: Rogelio Sales PA-C MEDICATIONS: -Versed 1 mg, Fentanyl 50 mcg, and lidocaine 1% 10 mL SQ -Antibiotics: None -For additional details, please see nursing flowsheet. COMPLICATIONS: None ESTIMATED BLOOD LOSS: < 5 ml CONTRAST: None SPECIMENS: 3 x 20 g cores were sent for pathology MODERATE SEDATION TIME: 26 min PROCEDURE NOTE: The procedure, risks, benefits, and alternatives were carefully explained to the patient and written informed consent was obtained. The patient was placed in the right lateral decubitus position on the CT table. A timeout was performed. A limited CT of the chest was performed to localize the left lung nodule and choose appropriate needle entry and trajectory. The patient was prepped and draped in usual sterile fashion. The skin and deeper soft tissues were anesthetized with lidocaine. Under CT guidance, a 19 gauge trocar needle was advanced to the lung nodule. A 20 gauge biopsy device was inserted through the trocar needle and advanced into the lesion. A total of 3 cores were performed. The specimens were placed in formalin and sent to pathology. A total of 10 mL of nonclotted blood was obtained from the patient's IV by the nursing staff. A blood patch was then administered through the trocar needle. The needle was removed. A dry dressing was applied and secured with Tegaderm. A limited postprocedure CT of the chest was performed, which did not demonstrate any pneumothorax or hemothorax. There were no immediate complications. The patient was stable after the procedure and was transferred to the post anesthesia care unit. The procedure was done under moderate sedation with a dedicated nurse for monitoring of vital signs. CT/CT biopsy lung LT Impression: CT-guided left lower lobe lung nodule biopsy This procedure was performed by Rogelio Sales PA-C and supervised by Dr. Land. Electronically signed by: Bharathi Land MD 01/06/2025 02:20 PM [facility] Dictated By: Rogelio Sales Signed By: <Electronically signed by Rogelio Sales in OV> 01/06/25 1420 <Electronically signed by Bharathi Land MD in OV> 01/06/25 1423 DD/ 1018 TD/TT: 01/05/25 1119 [employer]S Helper: us [facility] External Provider IMG CT PROCEDURES Final Result * (ABNORMAL) Glucose, Whole Blood (01/05/2025 9:48 AM EST) Glucose, Whole Blood 149(H) 60 - 115 mg/dL [facility] Comment:METER #: [id number] 01/05/2025 9:48 AM EST 01/05/2025 9:53 AM EST Generic External Data Provider LAB BLOOD ORDERAB LES Final Result Performing Organization Address City/State/[facility] Co de Phone Number [facility] [address] [place] [address] [phone] documented in this encounter Visit Diagnoses Not on filedocumented in this encounter Additional Health Concerns Assessment Noted Time PHQ-9 Depression Total Score: 0 02/27/20 23 11:42 AM EDT documented as of this encounter Care Teams Transportation Superintendent Relationship Specialty Start Date End Date Linda Murphy DO [address] [place] [address] PCP - General Family Medicine 11/24/12 Antionette Murphy PharmD [address] [place] [address] Pharmacist Internal Medicine 07/15/24 documented as of this encounter
--- OUTSIDE RECORDS SUMMARY | 2025-01-13 10:20 | XMS_ITS | Clinical Summary ---
Author Organization [employer] Address [address] [facility] [address] [place] [address] Care Team Providers Care Fire Control Technician Name Role Phone Linda Murphy DO Primary Care Provider PuAntionette ellison PharmD Unavailable [phone] Allergies Active Allergy Reactions Criticality Noted [...] EVENING 12 g 11 01/17/20 23 Active Tirosint-ROBERT 150 MCG/ML solution 11/01/20 23 Active clotrimazole (Lotrimin) 1 % creamIndicatio ns:Tinea APPLY TO AFFECTED AREA(S) AND SURROUNDING AREA(S) TWICE DAILY IN THE MORNING AND EVENING 60 g 2 01/21/20 24 Active Vit-Fe Fumarate-FA ( Vitamins) 28-0.8 MG tablet TAKE 1 TABLET BY MOUTH EVERYDAY AT NOON 90 tablet 3 01/23/20 24 Active naloxone (Narcan) 4 mg/0.1 mL [...] complication, without long-term current use of insulin ([facility]) Inject 1 each under the skin 2 [...] 60 tablet 3 07/15/20 24 025 Active lidocaine (Lidoderm) 5 % patchIndicatio ns:Acute post-traumatic headache, not intractable APPLY 1 TO 2 PATCHES TOPICALLY TO SKIN, LEAVE ON FOR 12 HOURS AND OFF FOR 12 HOURS DIRECTED 60 patch 3 07/15/20 24 Active ipratropium-al buterol (Duo-Neb) 0.5-2.5 mg/3 mL nebulizer solutionIndica tions:Chronic obstructive pulmonary disease, unspecified COPD type (CMS/HCC) INHALE 1 AMPULE USING A NEBULIZER FOUR TIMES DAILY NEEDED FOR ASTHMA OR (for COPD) 180 mL 2 07/23/20 24 Active hydrOXYzine pamoate (Vistaril) 50 MG capsule TAKE 1 CAPSULE BY MOUTH THREE TIMES DAILY NEEDED FOR ANXIETY 07/15/20 24 Active Alcohol Swabs (Alcohol Prep) 70 % padsIndication s:Type 2 diabetes mellitus without complication, without long-term current use of insulin ([facility]) USE EVERY DAY UP TO TWICE DAILY 100 each 08/12/20 24 Active glucose blood (FREESTYLE LITE) test stripIndicatio ns:Type 2 diabetes mellitus without complication, without long-term current use of insulin ([facility]) Use to check blood sugar up to twice daily 100 each 08/12/20 24 Active TRUEplus Lancets 33G miscIndication s:Type 2 diabetes mellitus without complication, without long-term current use of insulin ([facility]) Use to check blood sugar up to twice daily 100 each 08/12/20 24 Active semaglutide (Rybelsus) 7 MG tablet TAKE 1 TABLET EVERY MORNING, 30 MINUTES BEFORE A MEAL ICD10= 30 tablet 5 08/26/20 24 Active Aspirin Low Dose 81 MG EC tabletIndicati ons:Type 2 diabetes mellitus with other specified complication, unspecified whether intermodal customer service insulin use ([facility]) TAKE 1 TABLET BY MOUTH EVERY EVENING 90 tablet 1 09/02/20 24 Active metFORMIN XR (Glucophage-XR ) 500 MG 24 hr tabletIndicati ons:Type 2 diabetes mellitus without complication, without long-term current use of insulin ([facility]) TAKE 2 TABLETS BY MOUTH TWICE DAILY AT NOON AND IN THE EVENING 360 tablet 1 09/11/20 24 Active glipiZIDE (Glucotrol) 5 MG [...] BEDTIME 30 tablet 5 10/27/20 24 Active acetaminophen (Tylenol 8 Hour) 650 MG ER tabletIndicati ons:Acute post-traumatic headache, not intractable TAKE 1 TABLET BY MOUTH EVERY 8 HOURS NEEDED FOR PAIN OR FEVER 60 tablet 3 12/01/19 25 Active tiotropium (Spiriva HandiHaler) 18 MCG inhalation capsuleIndicat ions:Chronic obstructive pulmonary disease, unspecified COPD type (CMS/HCC) USE 1 CAPSULE FOR INHALATION ONCE A DAY DO NOT SWALLOW CAPSULE 30 capsule 11 12/01/19 25 Active Lubricants (K-Y Jelly) gel Apply desired amount topically to vaginal area as needed for dryness 113 g 11 12/23/19 25 Active Mometasone Furoate (Asmanex HFA) 100 MCG/ACT aerosol Inhale 2 Act (200 mcg) 2 times daily. 13 g 11 12/23/19 25 Active naproxen (Naprosyn) 500 MG tablet Take 1 tablet (500 mg) by mouth if needed in the morning and at bedtime for mild pain. 30 tablet 12/23/19 25 026 Active albuterol (Ventolin HFA) 108 (90 Base) MCG/ACT inhalerIndicat ions:Chronic obstructive pulmonary disease, unspecified COPD type (CMS/HCC) Inhale 2 puffs every 4 (four) hours if needed for wheezing or shortness of breath. 18 g 2 12/23/19 25 Active nicotine (Nicoderm, Step 1) 21 MG/24HR patch Place 1 patch on the skin 1 (one) time each day at the same time. 30 patch 1 12/23/19 25 Active traMADol (Ultram) 50 MG tabletIndicati ons:Chronic low back pain, unspecified back pain laterality, unspecified whether sciatica present TAKE 1 TABLET BY MOUTH EVERY 8 HOURS NEEDED FOR SEVERE PAIN 84 tablet 12/23/19 25 025 Active Ascorbic Acid (vitamin C) 250 MG tablet TAKE 1 TABLET BY MOUTH TWICE DAILY AT NOON AND IN THE EVENING WITH IRON 180 tablet 3 12/23/19 25 Active Ferrocite 324 MG tablet TAKE 1 TABLET BY MOUTH TWICE DAILY AT NOON AND IN THE EVENING WITH VIT C 180 tablet 3 12/23/19 25 Active pantoprazole (ProtoNix) 20 MG EC tabletIndicati ons:Chronic GERD TAKE 1 TABLET BY MOUTH TWICE DAILY AT NOON AND IN THE EVENING 180 tablet 3 12/23/19 25 Active lisinopril 2.5 MG tablet TAKE 1 TABLET BY MOUTH EVERYDAY AT NOON 90 tablet 3 12/23/19 25 Active Lubricants (K-Y Jelly) gel Apply desired amount topically to vaginal area as needed for dryness 113 g 11 02/27/20 23 025 Discontinued(R eorder (will not trigger notification to Pharmacy)) lisinopril 2.5 MG tablet TAKE 1 TABLET BY MOUTH EVERYDAY AT NOON 90 tablet 3 01/23/20 24 025 Discontinued Ferrocite 324 MG tablet TAKE 1 TABLET BY MOUTH TWICE DAILY AT NOON AND IN THE EVENING WITH VITAMIN C 180 tablet 3 01/23/20 24 025 Discontinued Ascorbic Acid (vitamin C) 250 MG tablet TAKE 1 TABLET BY MOUTH TWICE DAILY AT NOON AND IN THE EVENING WITH IRON 180 tablet 3 01/23/20 24 025 Discontinued pantoprazole (ProtoNix) 20 MG EC tabletIndicati ons:Chronic GERD TAKE 1 TABLET BY MOUTH TWICE DAILY AT NOON AND IN THE EVENING 180 tablet 3 01/24/20 24 025 Discontinued Mometasone Furoate (Asmanex HFA) 100 MCG/ACT aerosol Inhale 1 puff 2 times daily. 13 g 11 01/28/20 24 025 Discontinued(R eorder (will not trigger notification to Pharmacy)) naproxen (Naprosyn) 500 MG tablet Take 1 tablet (500 mg) by mouth if needed in the morning and at bedtime for mild pain. 30 tablet 07/15/20 24 025 Discontinued(R eorder (will not trigger notification to Pharmacy)) Ventolin HFA 108 (90 Base) MCG/ACT inhalerIndicat ions:Chronic obstructive pulmonary disease, unspecified COPD type (CMS/HCC) INHALE 2 PUFFS BY MOUTH EVERY 4 TO 6 HOURS NEEDED 18 g 2 09/11/20 24 025 Discontinued(R eorder (will not trigger notification to Pharmacy)) traMADol (Ultram) 50 MG tabletIndicati ons:Chronic low back pain, unspecified back pain laterality, unspecified whether sciatica present TAKE 1 TABLET BY MOUTH EVERY 8 HOURS NEEDED FOR SEVERE PAIN 84 tablet 10/14/20 24 025 Discontinued nicotine (Nicoderm, Step 1) 21 MG/24HR patch APPLY 1 PATCH TOPICALLY TO THE SKIN IN THE MORNING *DO NOT SMOKE WHILE USING PATCH* 30 patch 1 11/16/19 25 025 Discontinued(R eorder (will not trigger notification to Pharmacy)) Active Problems Problem Noted Date Diagnosed Date Toenail avulsion, initial encounter 08/26/2024 Assessment & Plan (08/26/2024 11:44 AM EDT): - partial, no evidence of nail bed infection or ingrown toenail - advised to keep area clean and dry and avoid trauma/more instrumentation of the toenail - refer to principal embedded software engineer - TB UTD Plantar callus 08/26/2024 Assessment & Plan (08/26/2024 11:45 AM EDT): - non-tender, refer to podiatry for further f/u - advised regarding routine foot exam, re consult PRN Onychomycosis of multiple to enails with type 2 diabetes mellitus ([facility]/HCC) 08/26/2024 Assessment & Plan (08/26/2024 11:45 AM EDT): - mild, advised to submerge toenails in solution of vinegar/water 50/50 - refer to podiatry Fatty liver 11/08/2023 Assessment & Plan (01/28/2024 2:44 PM EDT): -abd US with HMG with diffuse fatty change APR 2018, encouraged schedule repeat -AFP nml and LFTs slightly elevated Aug 2023 Status post thyroidectomy 11/08/2023 History of papillary thyroid carcinoma 3 Assessment & Plan (01/28/2024 2:48 PM EDT): s/p total thyroidectomy APR 2021 and I131 remnant ablation OCT 2021 -cont levothyroxine daily -repeat TFTs as per endo -f/u with endo as scheduled Chronic gastroesophageal reflux disease 11/08/20 23 Assessment & Plan (01/28/2024 2:46 PM EDT): Controlled -cont protonix BID Chronic low back pain 11/08/2023 Assessment & Plan (01/28/2024 2:46 PM EDT): -L-spine x-rays with mild multilevel spondylosis DEC 2019 -cont tylenol and tizanidine prn -encouraged tramadol use TID severe pain -encouraged heat/ice therapy -she declines PT -f/u with pain mgmt prn -advised contact [facility] if sx change or worsen Leukocytosis 11/08/2023 [...] daily -cont regular BS monitoring -re-referred to [facility] pharmacist for eval -cont statin and low-dose [...] Encounters Date Type Department Care Team Description 01/12/2025 Telephone [facility] [address] [place] [address] No Lopez, RN NCNS PRINT W[employer]ER RV today 01/07/2025 Telephone [facility] [address] [place] [address] No Lopez, RN NCNS for PRINT WASHER RV today 01/07/2025 Telephone [facility] [address] [place] [address] No Lopez, RN Recommend PRINT WASHER Tier 2 01/05/2025 Orders Only GENERIC EXTERNAL DATA DEPARTMENT Provider, Generic External Data 12/23/2024 Refill [facility] [address] [place] [address] Linda Murphy DO Chronic GERD 12/21/2024 Refill [facility] [address] [place] [address] Linda Murphy, Chronic low back pain, unspecified back pain laterality, unspecified whether sciatica present 12/18/2024 Refill [facility] [address] [place] [address] Linda Murphy DO 12/18/2024 Refill [facility] [address] [place] [address] Linda Murphy, Acute post-traumatic headache, not intractable; Chronic obstructive pulmonary disease, unspecified COPD type ([facility]) 12/18/2024 Refill [facility] [address] [facility] [place] [address] Linda Murphy, Type 2 diabetes mellitus without complication, without long-term current use of insulin ([facility]); Type 2 diabetes mellitus with other specified complication, unspecified whether jail insulin use ([facility]); Chronic obstructive pulmonary disease, unspecified COPD type ([facility]) 12/15/2024 Orders Only GENERIC EXTERNAL DATA DEPARTMENT Provider, Generic External Data 12/07/2024 Telephone [facility] [address] [place] [address] Linda Murphy DO 12/06/2024 Orders Only GENERIC EXTERNAL DATA DEPARTMENT Provider, Generic External Data 12/01/2024 Refill [facility] [address] [place] [address] Linda Murphy DO Acute post-traumatic headache, not intractable; Chronic obstructive pulmonary disease, unspecified COPD type ([facility]) 11/25/2024 Orders Only [facility] External Provider, [facility] 11/18/2024 Travel 11/14/2024 Refill [facility] [address] [place] [address] Linda Murphy DO 11/04/2024 Refill [facility] [address] [place] [address] Linda Murphy DO Acute post-traumatic headache, not intractable 10/30/2024 Telephone [facility] [address] [place] [address] Joselyn García, KRYSTYNA PET results 10/30/2024 Telephone [facility] [address] [place] [address] Murphy DO PET [address] RESULTS 10/24/2024 Refill [facility] [address] [place] [address] Linda Murphy DO 10/21/2024 Telephone [facility] [address] [place] [address] Linda Murphy DO Referral 10/21/2024 Telephone [facility] [address] [place] [address] Linda Murphy, Referral from Last 3 Months Immunizations Name Administration [...] Description 01/19/2025 11:45 AM EDT Office Visit [facility] [address] [place] [address] Linda Murphy DO [address] [place] [address] Health Maintenance Due Date Last Done Comments [...] 3:26 PM EDT) No Neri Yang, PharmD Procedures Procedure Name Priority Date/Time Associated Diagnosis Comments XR CHEST 1 VIEW Routine 01/05/2025 12:41 PM EST XR CHEST 1 VIEW Routine 01/05/2025 11:45 AM EST GROSS AND MICROSCOPIC LEVEL 4 Routine 01/05/2025 10:[address] BIOPSY LUNG LEFT Routine 01/05/2025 1 0:18 AM EST GLUCOSE, WHOLE BLOOD Routine 01/05/2025 9:48 AM EST GLUCOSE, WHOLE BLOOD Routine 12/15/2024 9:37 AM EST APTT Routine 12/15/2024 9:21 AM EST PROTHROMBIN TIME-INR Routine 12/15/2024 9:21 AM EST BASIC METABOLIC PANEL Routine 12/06/2024 12:50 [...] SOFT TISSUE Routine 11/25/2024 2:35 PM EST ALBUMIN, RANDOM URINE W/CREATININE Routine 08/13/2024 3:30 [...] Recently Relevant to Health Maintenance Results * XR Chest 1 View (01/05/2025 12:41 PM EST) Only the most recent of2 resultswithin the time period is included. Anatomical Region Laterality Modality Chest Radiographic Rosaura ging 01/05/2025 12:4 1 PM EST Narrative 01/06/2025 9:00 AM EST ? [facility] ?[address] ?[place] [address] ?XRay Report ? Signed ? Patient: Sara,Tisha ?MR#: [id number] ?? 61 ? : 1970 ?Acct:[id number] ? Age/Sex: 54 / F ?ADM Date: 02/25/25 ? Loc: HO.SSS ? Attending Dr: Mario Hoyt MD ? Ordering Physician: Rogelio Sales ?? Date of Service: 01/05/25 ?? Procedure(s): XR chest 1V ?? Accession Number(s): [id number] ? cc: Linda Murphy DO; Rogelio Sales [...] DD/ 1241 ? TD/TT: 01/05/25 1241 ? [employer]: ? Procedure Note Gonzalez, Elena - 01/06/2025 [place] [address] XRay Report Signed Patient: Ayanna RuiznMR#: [id number] 61 : 1970Acct:[id number] Age/Sex: 54 / FADM Date: 01/05/25 Loc: HO.SSS Attending Dr: Mario Hoyt MD Ordering Physician: Rogelio Sales Date of Service: 01/05/25 Procedure(s): XR chest 1V Accession Number(s): [id number] cc: Linda Murphy DO; Rogelio Sales EXAMINATION: [...] 01/06/25 0857 DD/ 1241 TD/TT: 01/05/25 1241 [employer]: [facility] External Provider IMG XR PROCEDURES Final Result * Gross and Microscopic Level 4 (01/05/2025 10:57 AM EST) 01/05/2025 10:5 7 AM EST 01/05/2025 11:19 AM EST [facility] - 01/07/2025 2:12 PM EST ----- ------- Name: Tisha Ruiz ? Age/Sex: 54/F ? : 1970 Unit#: [id number] ?? Attend Dr: Mario Hoyt MD ?Re01/05/25 ?Status: DEP SDC ? Location: HO.SSS ?Disch: ? ----- ------- SPEC : [id number] ?RECD: 01/05/25-1119 ? STATUS: ??SOUT ? REQ NUM: [id number] ? HILARY: 01/05/25-1056 ? SUBM DR: Rogelio Sales ? ENTERED: [...] ? Age/Sex: 54/F ? : 1970 Unit#: [id number] ?? Attend Dr: Mario Hoyt MD ?Re01/05/25 ?Status: DEP SDC ? Location: HO.SSS ?Disch: ? ----- ------- SPEC : [id number] ?RECD: 01/05/25-1119 ? STATUS: ??SOUT ? REQ NUM: [id number] ? HILARY: 01/05/25-1057 ? SUBM DR: Rogelio Sales ? ENTERED: ??01/05/25-1121 ?SP TYPE: Surgical ? OTHR DR: Linda [...] Copies To: ?? Linda Murphy DO ?? [facility] ?? [address] ?? [place] ?? [phone] ?? Mario Hoyt MD ?? [facility] ?? [address] ?? [place], [place] ?? [phone] ?? [email or web address] ?? Rogelio Sales ?? [address] ?? [place] ?? [phone] ?? [email or web address] ----- ------- Signed (signature on file) Anuradha [place] 01/06/258 ? ----- ------- ? END OF REPORT ? us Generic External Data Provider ALEX VALENTINO Final Result [facility] [address] [place] [address] [phone] * CT Biopsy Lung Left (01/05/2025 10:18 AM EST) Anatomical Region Laterality Modality Computed Tomogra phy 01/05/2025 10:1 8 AM EST Narrative 01/06/2025 2:23 PM EST ? [facility] ?[address] ?[place] [address] ? CT Scan Report ? Signed ? Patient: Tisha Ruiz ?MR#: [id number] ?? 61 ? : 1970 ?Acct:[id number] ? Age/Sex: 54 / F ?ADM Date: 01/05/25 ? Loc: HO.SSS ? Attending Dr: Mario Hoyt MD ? Ordering Physician: Mario Hoyt MD ?? Date of Service: 01/05/25 ?? Procedure(s): CT biopsy lung LT ?? Accession Number(s): [id number] ? cc: Linda Murphy DO; Mario Hoyt MD ? Report Number: ?? [id number]: Total DLP = ??490.00 mGy-cm ?? 54-year-old [...] by Rogelio Sales PA-C and supervised by ?Judah Land. ? Electronically signed by: ??Bharathi Land MD ??01/06/2025 02:20 PM EST RP ? Dictated By: ?Rogelio Sales ? Signed By: ?<Electronically signed by Rogelio Sales in OV> ? 01/06/25 1420 ?<Electronically signed by Bharathi Land MD in OV> ? 01/06/25 1423 ? DD/ 1018 ? TD/TT: 01/05/25 1119 ? [employer]: ? Procedure Note Elena Roth - 01/06/[address] [address] [address] Scan Report Signed Patient: Ayanna RuizElmerR#: [id number] 61 : 1970Acct:[id number] Age/Sex: 54 / FADM Date: 01/05/25 Loc: .SSS Attending Dr: Mario Hoyt MD Ordering Physician: Mario Hoyt MD Date of Service: 01/05/25 Procedure(s): CT biopsy lung LT Accession Number(s): [id number] cc: Linda Murphy DO; Mario Hoyt MD Report Number: [id number]: Total DLP = 490.00 mGy-cm 54-year-old female [...] by: Bharathi Land MD 01/06/2025 02:20 PM EST RP Dictated By: Rogelio Sales Signed By: <Electronically signed by Rogelio Sales in OV> 01/06/25 1420 <Electronically signed by Bharathi Land MD in OV> 01/06/25 1423 DD/ 1018 TD/TT: 01/05/25 1119 [employer]: [facility] External Provider IMG CT PROCEDURES Final Result * (ABNORMAL) Glucose, Whole Blood (01/05/2025 9:48 AM EST) Only the most recent of3 resultswithin the time period is included. Glucose, Whole Blood 149(H) 60 - 115 mg/dL [facility] Comment:METER #: [id number] 01/05/2025 9:48 AM EST 01/05/2025 9:53 AM EST Generic External Data Provider LAB BLOOD ORDERAB LES Final Result [facility] [address] [place] [phone] * (ABNORMAL) Partial Thromboplastin Time, Activated (APTT) (12/15/2024 9:21 AM EST) Partial Thromboplastin Time 40.1(H) 26.0 - 36.8 SEC [facility] Comment:For information rega rding the monitoring of direct thrombininhibitors, please refer to Pharmacy. 12/15/2024 9:21 AM EST 12/15/2024 9:24 AM EST Generic External Data Provider LAB BLOOD ORDERAB LES Final Result Performing Organization Address [facility]/ZIP Co de Phone Number [facility] [address] [place] [phone] * (ABNORMAL) Prothrombin Time-INR (12/15/2024 9:21 AM EST) Prothrombin Time 9.9(L) 10.9 - 12.4 SEC [facility] INTERNATIONAL NORM RATIO 0.9 0.9 - 1.1 [facility] Comment:INTERNATIONAL NORMAL IZED RATIO (INR) REFERENCE [...] ORDERAB LES Final Result Performing Organization Address [facility] Co de Phone Number [facility] [address] [place] [phone] * (ABNORMAL) Urinalysis, Complete, with Reflex to Culture (12/06/2024 12:50 PM EST) Color Urine Yellow [facility] Appearance Urine Clear [facility] PH 7.5 5.0 - 9.0 [facility] Glucose Urine UA Negative Negative mg/dL [facility] Urine Blood Negative Negative [facility] Specific Thiells - Urine 1.015 1.005 - 1.025 [facility] Urine Protein Trace Neg-Trace mg/dL [facility] Urine Ketones Negative Negative mg/dL [facility] Nitrite Urine Negative Negative [facility] Leukocyte Esterase Urine Small (1+)(A) Negative [facility] RBC Urine 0-2 0 - 2 /HPF [facility] Urine WBC 11-20(A) 0 - 5 /HPF [facility] Urine Squamous Epithelial Cell 0-2 0 - 2 /HPF [facility] Urine Bacteria Trace None Seen [facility] Hyaline Casts, Urine 0-2 0 - 2 /LPF [facility] 12/06/2024 12:5 0 PM EST 12/06/2024 1:03 PM EST Narrative [facility] - 12/06/2024 1:24 PM EST Urine, Clean Catch us Generic External Data Provider LAB URINE ORDERAB LES Final Result [facility] [address] [place] [address] [phone] * SARS-CoV-2 RNA, Influenza A/B, and RSV RNA, Ql NAAT (12/06/2024 12:50 PM EST) Influenza A PCR NEGATIVE Negative [facility] Influenza B PCR NEGATIVE Negative [facility] Resp Syncy Virus RNA Qual PCR NEGATIVE Negative [facility] SARS COV2 PCR NEGATIVE Negative [facility] Comment:All test results mus t [...] use by authorized laboratories.Testing performed on the [employer] GeneXpert utilizingreal-time RT-PCR.All SARS CoV2 and positive influenza A/B results arereported to [facility]. 12/06/2024 12:5 0 PM EST 12/06/2024 1:03 PM EST us Generic External Data Provider LAB MICROBIOLOGY - GENERAL ORDERABLES Final Result [facility] [address], [place] [phone] * (ABNORMAL) CBC auto differential (12/06/2024 12:50 PM EST) White Blood Count 11.3(H) 4.8 - 10.8 X10*3/uL [facility] Red Blood Count 4.94 4.20 - 5.50 X10*6/uL [facility] Hemoglobin 13.8 12.0 - 16.0 g/dl [facility] Hematocrit 41.6 37.0 - 47.0 % [facility] Mean Corpuscular Volume 84.2 80.0 - 98.0 fL [facility] Mean Corpuscular Hemoglobin 27.9 27.0 - 33.0 pg [facility] Mean Corpuscular HGB Conc 33.2 31.0 - 35.0 g/dl [facility] Red Cell Distribution Width 13.9 11.0 - 16.0 % [facility] Platelet Count 327 160 - 400 X10*3/uL [facility] Mean Platelet Volume 9.7 9.4 - 12.3 fL [facility] Neutrophils Percent Auto 71.7 45 - 73 % [facility] Imm Gran Pct Auto 0.5(H) 0.0 - 0.4 % [facility] Lymphocytes Percent Auto 20.7 20 - 40 % [facility] Monocytes Percent Auto 5.6 2 - 11 % [facility] Eosinophils Percent Auto 1.1 0 - 4 % [facility] Basophils Percent Auto 0.4 0 - 2 % [facility] NRBC Pct Auto 0.0 0.0 - 0.2 /100WBC [facility] Neutrophils Absolute Auto 8.1 2.0 - 8.3 x10*3/uL [facility] Imm Gran Abs Auto 0.06(H) 0.00 - 0.03 X10*3/uL [facility] Lymphocytes Absolute Auto 2.4 1.2 - 4.9 X10*3/uL [facility] Monocytes Absolute Auto 0.6 0.1 - 1.2 X10*3/uL [facility] Eosinophils Absolute Auto 0.1 0.0 - 0.4 X10*3/uL [facility] Basophils Absolute Auto 0.0 0.0 - 0.2 X10*3/uL [facility] NRBC Abs Auto 0.000 0.0 - 0.012 X10*3/uL [facility] 12/06/2024 12:5 0 PM EST 12/06/2024 1:03 PM EST Generic External Data Provider LAB BLOOD ORDERAB LES Final Result Performing Organization Address [facility] Phone Number [facility] [address] [place] [phone] * (ABNORMAL) Hepatic Function Panel (12/06/2024 12:50 PM EST) Pathologist [facility] [place] Bilirubin, Total 0.2 0.0 - 1.0 mg/dL [facility] Bilirubin, Direct <0.2 0.0 - 0.5 mg/dL [facility] Aspartate Amino Transferase 23 5 - 31 U/L [facility] Alanine Aminotransferase 26 0 - 31 U/L [facility] Total Protein 8.1(H) 6.5 - 8.0 g/dL [facility] Albumin Level 4.4 3.5 - 5.0 g/dL [facility] Alkaline Phosphatase 92 39 - 117 U/L [facility] 12/06/2024 12:5 0 PM EST 12/06/2024 1:03 PM EST Generic External Data Provider LAB BLOOD ORDERAB LES Final Result Performing Organization Address [facility] Phone Number [facility] [address] [place] [phone] * (ABNORMAL) Basic Metabolic Panel (12/06/2024 12:50 PM EST) Pathologist [facility] [place] Sodium 143 135 - 145 mmol/L [facility] Potassium 4.4 3.3 - 5.1 mmol/L [facility] Chloride 103 96 - 108 mmol/L [facility] Carbon Dioxide 30(H) 22 - 29 mmol/L [facility] Anion Gap 14 12 - 20 [facility] Urea Nitrogen (BUN) 13 9 - 16 mg/dL [facility] Creatinine, Serum 1.10 0.5 - 1.4 mg/dL [facility] Creatinine Clr Calc Pharmacy 69.7 [facility] Comment:Provided height and weight: 170.18 cm,92.1 kg.eGFR (calculated from the MDRD study equation) and eCrCl(calculated from the Cockcroft-Gault equation) are based ondifferent parameters and may not yield comparable results.If eCrCl result is absurd, please check patient'sheight/weight. Estimated Glomerular Filt Rate 52 [facility] Comment:Chronic Kidney Disea se: Estimated GFR < 60 mL/min/1.22w8Ximern Kidney Disease: Estimated GFR < 15 mL/min/1.73m2 Glucose 170(H) 60 - 115 mg/dL [facility] Calcium 9.5 8.4 - 10.2 mg/dL [facility] 12/06/2024 12:5 0 PM EST 12/06/2024 1:03 PM EST us Generic External Data Provider LAB BLOOD ORDERAB LES Final Result [facility] [address] [place] [phone] * Culture, Urine, Routine (12/06/2024 12:00 AM EST) Urine Urine specimen obtained by clean catch procedure / Unknown 12/06/2024 12/06/2024 Comment:[facility] Narrative [facility] - 12/07/2024 8:13 AM EST Urine Culture Report Result Urine Culture 50,000 to 100,000 cfu/ml Urine Culture Mixed bacterial cabrera characteristic of Urine Culture urogenital contamination. Specimen Source: Urine clean catch us Generic External Data Provider LAB MICROBIOLOGY - GENERAL ORDERABLES Final Result [facility] [address] [facility] [place] [phone] * US Head Neck Soft Tissue (11/25/2024 2:35 PM EST) Anatomical Region Laterality Modality Head, Neck Ultrasound 11/25/2024 2:35 PM EST Narrative 11/26/2024 8:32 AM EST ? [facility] ?[address] ?[place] [address] ? Ultrasound Report ? Signed ? Patient: SaraTisha ?MR#: [id number] ?? 61 ? : 1970 ?Acct:[id number] ? Age/Sex: 54 / F ?ADM Date: 11/25/24 ? Loc: HO.US ? Attending Dr: Geneva Candelario MD ? Ordering Physician: Geneva Candelario MD ?? Date of Service: 11/25/24 ?? Procedure(s): US soft tiss head and/or neck ?? Accession Number(s): [id number] ? cc: Linda Murphy DO; Geneva Candelario [...] DD/ 1435 ? TD/TT: 11/25/24 1450 ? [employer]: MSM ? Procedure Note Gonzalez, Image - 11/26/[address] [address] Ultrasound Report Signed Patient: Ayanna RuiznMR#: [id number] 61 : 1970Acct:[id number] Age/Sex: 54 / FADM Date: 11/25/24 Loc: HO.US Attending Dr: Geneva Candelario MD Ordering Physician: Geneva Candelario MD Date of Service: 11/25/24 Procedure(s): US soft tiss head and/or neck Accession Number(s): [id number] cc: Linda Murphy DO; Geneva Candelario MD [...] Jamie Hassan MD 11/26/2024 08:29 AM EST Dictated By: Jamie Hassan MD Signed By: <Electronically signed by Jamei Hassan MD in OV> 11/26/24 0829 DD/ 1435 TD/TT: 11/25/24 1450 [employer]: [facility] External Provider IMG US PROCEDURES Edited Result - Final * Albumin, Random Urine W/Creatinine (08/13/2024 3:30 PM EDT) Creatinine, Urine 21.51 mg/dL [facility] Microalbumin Urine <5.0 mg/L [facility] Microalbum Creatinine Ratio Ur TNP <30 ug/mg cr [facility] Comment:Unable to calculate albumin/creatinine ratio due to lowmicroalbumin or creatinine result. Urine (Urine, Random) 08/13/2024 3:30 PM EDT 08/13/2024 3:38 PM EDT Linda Murphy DO LAB URINE ORDERABLES Final R esult [facility] [address] [place] [phone] * (ABNORMAL) Hemoglobin A1c (08/13/2024 3:26 PM EDT) Hemoglobin A1c 7.4(H) <6.0 % [facility] Comment:Hemoglobin A1C Refer ence Range Adults: 4.8 - 6.0 % Non diabetic: < 6.0 % Goal: < 7.0 %Additional Action Suggested: > 8.0 %Note: Hemoglobin A1c results are invalid for patients with abnormal amounts of HbF. Blood transfusions may impact the HbA1c concentration in the patient sample. Estimated Average Glucose 166 mg/dL [facility] Comment:eAG = Estimated ave rage glucose which is %A1C expressed asaverage glucose, using the formula of the B9V-CfzotsgEoilxwc Glucose study (ADAG), Diabetes Care, Vol.31,#8,Jun. 2007 Blood Venous blood specimen / Unknown 08/13/2024 3:26 PM EDT 08/13/2024 3:26 PM EDT Linda Murphy LAB BLOOD ORDERABLES Final R esult Performing Organization Address City/[facility]/ZIP Co de Phone Number [facility] [address] [place] [phone] * (ABNORMAL) Lipid Panel, Standard (08/13/2024 3:26 PM EDT) Triglycerides 257(H) <150 mg/dL [facility] Comment:Desirable Triglyceri de: less than 150 mg/dLBorderline High Triglyceride 150-199 mg/dLHigh Triglyceride: 200-499 mg/dLVery High Triglyceride: greater than or equal to 5OO mg/dL Cholesterol 151 <200 mg/dL [facility] Comment:Desirable Cholestero l: less than 200 mg/dLBorderline High Cholesterol: 200-239 mg/dLHigh Cholesterol: greater than 239 mg/dL LDL Cholesterol Calculated 61 <100 mg/dL [facility] Comment:Desirable LDL: less than 100 mg/dLNear Optimal/Above Optimal LDL: 110- 129 mg/dLBorderline High LDL: 130-159 mg/dLHigh LDL: 160-189 mg/dLVery High LDL: greater than or equal to 190 mg/dL HDL Cholesterol 39(L) >40 mg/dL [facility] Comment:Desirable HDL: great er than 40 mg/dL Note: This HDL assay may give artificially low results in patients with liver disease. Blood Venous blood specimen / Unknown 08/13/2024 3:26 PM EDT 08/13/2024 3:26 PM EDT Linda Murphy DO LAB BLOOD ORDERABLES Final R esult Performing Organization Address [facility]/ZIP Co de Phone Number [facility] [address] [place] [phone] * HIV Ab/Ag ([place] DP) (08/26/2023 2:47 PM EDT) HIV AB/AG Nonreactive Nonreactive [facility] Comment:HIV-1 p24 Ag and/or HIV-1/HIV-2 Ab not detected.A test result that is nonreactive does not exclude thepossibility of exposure to or infection with HIV-1 and/orHIV-2. Nonreactive results in this assay for individualswith prior exposure to HIV-1 and/or HIV-2 may be due toantigen and antibody levels that are below the limit ofdetection of this assay.The [employer] HIV Ag/Ab Combo assay result andsupplemental assay results should be interpreted inconjunction with the patient's clinical presentation,history and other laboratory results. If the results areinconsistent with clinical evidence, additional testing issuggested to confirm the result. 08/26/2023 2:47 PM EDT 08/26/2023 2:47 PM EDT Linda Murphy DO LAB BLOOD ORDERABLES Final R esult Performing Organization Address City/[facility]/ZIP Co de Phone Number [facility] [address] [place] [phone] * Hepatitis C Antibody with Reflex to HCV, RNA, Quantitative, Real-Time PCR (08/26/2023 2:47 PM EDT) Hepatitis C Antibody Nonreactive Nonreactive [facility] Comment:Antibodies to HCV no t detected; does not exclude early acuteHCV infection. 08/26/2023 2:47 PM EDT 08/26/2023 2:47 PM EDT Linda Murphy LAB BLOOD ORDERABLES Final R esult Performing Organization Address City/[facility]/ZIP Co de Phone Number [facility] [address] [place] [phone] * HPV E6/E7 RFLX LUIS 16 18/45 (05/21/2022 3:45 PM EDT) HPV mRNA E6/E7 rflx Not Detected Not Detected [employer] [facility] Comment: Methodology: Respiratory Medicine Physician-Mediated Amplification This assay detects E6/E7 viral messenger RNA (mRNA) from 14 high-risk HPV types (16,18,31,33,35,39,45,51,52,56,58,59,66,68). Cervical sources are required for HPV testing. If a vaginal source from a patient who has had a total hysterectomy with removal of cervix was submitted, please contact the testing laboratory for alternative testing options. For additional information, please refer to http://education.AppCard/faq/KVI035y6 (This link if provided for information/ educational purposes only.) THIS TEST WAS PERFORMED AT: [facility] [address] [place] [address],[address] [place], [place] ??[phone] VALERIA DURANT MD 05/21/2022 3:45 PM EDT Fercho Palmer MD HISTORICAL/NON ORDERABLE LABS Fi nal Result Performing Organization Address City/[facility]/ZIP Co de Phone Number [facility] [address] * Pap Smear (02/15/2022 12:00 AM EDT) Swab Linda Murphy DO LAB CYTOLOGY ORDERABLES Ce l Result Performing Organization Address City/[facility]/ZIP Co de Phone Number [facility] [address] [place] [address], [place] [phone] * DIGITAL BILATERAL SCREEN 1 (04/01/2019 2:56 PM EDT) Anatomical Region Laterality Modality Breast Bilateral Mammography 04/01/2019 2:56 PM EDT Narrative 04/01/2019 2:58 PM EDT Refer to the Notes tab for result details [facility] Procedure: DIGITAL BILATERAL SCREEN 1 Procedure Note Provider, MD Margie - 02/02/2023 Refer to the Notes tab for result details [facility] Procedure: DIGITAL BILATERAL SCREEN 1 Linda Murphy DO IMG BI PROCEDURES Final Resu lt from Last 3 Months or Most Recently Relevant to Health Maintenance Insurance [facility] Care Teams Fire Control Technician Relationship Specialty Start Date End Date Linda Murphy DO [address] [place], [place] [phone] PCP - General Family Medicine 11/24/12 Antionette Murphy PharmD [address] [place], [place] [phone] Pharmacist Internal Medicine 07/15/24
--- OUTSIDE RECORDS SUMMARY | 2025-01-13 10:20 | XMS_ITS | Encounter Summary ---
Author Organization [employer] Address [address] 7t [place] [address] Care Team Providers Care Life Science Technical Officer Name Role Phone Linda Murphy DO Primary Care Provider Dellogla Neri PharmD Unavailable Unavail able Antionette Murphy PharmD Unavailable [phone] Reason for Visit * Reason Onset Date Comments triage 11/14/2022 Encounter Details Date Type Department Care Team (Late st Contact Info) Description 11/14/2022 Telephone [facility] [address] [place] [address] Linda Murphy DO [address] [place], [place] [phone] triage Social History Tobacco Use Types Packs/Day [...] EST Triage call Pt reports seen in [facility] [place]. Pt reports bruising on bilateral [...] Description 01/19/2025 11:45 AM EDT Office Visit [facility] [address] [place] [address] Linda Murphy DO [address] [place] [address] documented as of this encounter Visit Diagnoses Not on filedocumented in this encounter Care Teams Life Science Technical Officer Relationship Specialty Start Date End Date Linda Murphy DO [address] [place] [phone] PCP - General Family Medicine 11/24/12 Neri Yang PharmD [address] [place] [address] Pharmacist Internal Medicine 11/23/22 10/17/23 Antionette Murphy PharmD [address] [place] [address] [place] [address] Pharmacist Internal Medicine 07/15/24 documented as of this encounter
--- OUTSIDE RECORDS SUMMARY | 2025-01-13 10:20 | XMS_ITS | Encounter Summary ---
Author Organization [employer] Address [address] [facility] 7t [place] [address] Care Team Providers Care Shell Mold Bonding Machine Operator Name Role Phone Linda Murphy DO Primary Care Provider [phone] Neri Yang PharmD Unavailable Unavail able Antionette Murphy PharmD Unavailable Reason for Visit * Reason Onset Date Comments Results 10/08/2023 Encounter Details Date Type Department Care Team ([facility] st Contact Info) Description 10/08/2023 Telephone [facility] 230 [place] [address] Linda Murphy DO [address] [place], [place] [phone] Results Social History Tobacco Use Types Packs/Day [...] encounter Miscellaneous Notes * Telephone Encounter - Saeollie Tian - 10/08/2023 4:19 PM EST Tc from from pt requesting x-ray results. She was seen at urgent care yesterday 10/07/2023 but was transferred [facility]. documented in this encounter Plan of Treatment Upcoming Encounters Date Type Department Care Team (Late st Contact Info) Description 01/19/2025 11:45 AM EDT Office Visit [facility] [address] [place] [address] Linda Murphy DO [address] [place] [address] documented as of this encounter Goals Goal [...] documented as of this encounter Care Teams Shell Mold Bonding Machine Operator Relationship Specialty Start Date End Date Linda Murphy DO [address] [place] [address] PCP - General Family Medicine 11/24/12 Neri Yang, PharmD [address] [place] [address] Pharmacist Internal Medicine 11/23/22 10/17/23 Antionette Murphy, EricD [address] [place] [address] Pharmacist Internal Medicine 07/15/24 documented as of this encounter
--- OUTSIDE RECORDS SUMMARY | 2025-01-13 10:20 | XMS_ITS | Encounter Summary ---
Author Organization [employer] Address [address] 7[address] [place] [address] Care Team Providers Care Stacker And Sorter Operator Name Role Phone Linda Murphy DO Primary Care Provider [phone] Antionette Murphy PharmD Unavailable [phone] Reason for Visit * Reason Comments Med Refill Encounter Details Date Type Department Care Team (Late st Contact Info) Description 12/21/2024 Refill [facility] [address] [place] [address] Linda Murphy DO [address] [facility] [place] [address] Chronic low back pain, unspecified back pain laterality, unspecified whether sciatica present Social History Tobacco Use Types Packs/Day Years [...] Description 01/19/2025 11:45 AM EDT Office Visit [facility] [address] [place] [address] Linda Murphy DO [address] [place] [phone] documented as of this encounter Goals Goal Patient Goal Type Associated Problems Recent Progress Patient-Stated? Author Hemoglobin A1c < 7 Result Component 7.4(08/13/2024 3:26 PM EDT) No Neri Yang, PharmD documented as of this encounter Visit Diagnoses Diagnosis Chronic low back pain, unspecified back pain laterality, unspecified whether sciatica present documented in this encounter Additional Health Concerns Assessment Noted Time PHQ-9 Depression Total Score: 0 02/27/20 23 11:42 AM EDT documented as of this encounter Care Teams Stacker And Sorter Operator Relationship Specialty Start Date End Date Linda Murphy DO [address] [place] [phone] PCP - General Family Medicine 11/24/12 Antionette Murphy PharmD [address] [place] [address] [phone] Pharmacist Internal Medicine 07/15/24 documented as of this encounter
--- OUTSIDE RECORDS SUMMARY | 2025-01-13 10:20 | XMS_ITS | Encounter Summary ---
Author Organization [employer] Address [address] [facility] 7t [place] [address] Care Team Providers Care Siding Installer Name Role Phone Linda Murphy DO Primary Care Provider DelNeri zavala PharmD Unavailable Unavail able Antionette Murphy PharmD Unavailable Reason for Visit * Reason Onset Date Comments letter michael lopez 07/26/2023 Encounter Details Date Type Department Care Team (Late st Contact Info) Description 07/26/2023 Telephone [facility] [address] [place] [address] Linda Murphy DO [address] [place] [address] letter michael lopez Social History Tobacco Use [...] to Medical side. Please contact pt at [phone] documented in this encounter Plan of Treatment Upcoming Encounters Date Type Department Care Team (Late st Contact Info) Description 01/19/2025 11:45 AM EDT Office Visit [facility] [address] [place] [address] Linda Murphy DO [address] [place] [address] documented as of this encounter Goals Goal [...] documented as of this encounter Care Teams Siding Installer Relationship Specialty Start Date End Date Linda Murphy DO [address] [place] [address] PCP - General Family Medicine 11/24/12 Neri Yang, PharmD [address] [place] [phone] Pharmacist Internal Medicine 11/23/22 10/17/23 Antionette Murphy PharmD [address] [place] [phone] Pharmacist Internal Medicine 07/15/24 documented as of this encounter
--- OUTSIDE RECORDS SUMMARY | 2025-01-13 10:20 | XMS_ITS | Encounter Summary ---
Author Organization [employer] Address [address] [facility] 7t [place] [address] Care Team Providers Care Soil Technologist Name Role Phone Linda Murphy DO Primary Care Provider [phone] Antionette Murphy PharmD Unavailable [phone] Reason for Visit * Reason Onset Date Comments Med Refill 12/18/2024 Encounter Details Date Type Department Care Team (Late st Contact Info) Description 12/18/2024 Refill [facility]INE [address] [place] [address] Linda Murphy DO [address] [place] [address] Social History Tobacco Use Types Packs/Day Years [...] Description 01/19/2025 11:45 AM EDT Office Visit [facility] [address] [place] [address] Linda Murphy DO [address] [place] [phone] documented as of this encounter Goals Goal [...] documented as of this encounter Care Teams Soil Technologist Relationship Specialty Start Date End Date Linda Murphy DO [address] [place] [phone] PCP - General Family Medicine 11/24/12 Antionette Murphy PharmD [address] [place] [phone] Pharmacist Internal Medicine 07/15/24 documented as of this encounter
--- OUTSIDE RECORDS SUMMARY | 2025-01-13 10:20 | XMS_ITS | Encounter Summary ---
Author Organization [employer] Address [address] [facility] 7t [place] [address] Care Team Providers Care Layout Former Name Role Phone Linda Murphy DO Primary Care Provider [phone] Antionette Murphy PharmD Unavailable [phone] Reason for Visit * Reason Comments Med Refill Encounter Details Date Type Department Care Team ([facility] st Contact Info) Description 12/23/2024 Refill [facility] 230 [place] [address] Linda Murphy DO [address] [place] [address] Chronic GERD Social History Tobacco Use Types Packs/Day Years [...] is your housing situation today? I have christei blanc 08/26/[address] you [...] Description 01/19/2025 11:45 AM EDT Office Visit [facility] [address] [place] [phone] Linda Murphy DO [address] [place] [address] documented as of this encounter Goals Goal Patient Goal Type Associated Problems Recent Progress Patient-Stated? Author Hemoglobin A1c < 7 Result Component 7.4(08/13/2024 3:26 PM EDT) No Neri Yang PharmD documented as of this encounter Visit Diagnoses Diagnosis Chronic GERD documented in this encounter Additional Health Concerns Assessment Noted Time PHQ-9 Depression Total Score: 0 02/27/20 23 11:42 AM EDT documented as of this encounter Care Teams Layout Former Relationship Specialty Start Date End Date Linda Murphy DO [address] [place] [address] PCP - General Family Medicine 11/24/12 Antionette Murphy PharmD [address] [place] [phone] Pharmacist Internal Medicine 07/15/24 documented as of this encounter
== END 2025-01-13 09:45 | disposition home or self-care (01) ==
PROVIDERS: PCP Family Medicine; Visit Provider Surgery
DX: R91.8 Other nonspecific abnormal finding of lung field (principal); C34.32 Malignant neoplasm of lower lobe, left bronchus or lung
CPT/HCPCS: 99215

== ENCOUNTER → 2025-01-13 09:17 | Outpatient (BNVA) | payer OTHER, SELFPAY | PROVIDERS: PCP Family Medicine; Visit Provider Surgery | DX: C34.32 Malignant neoplasm of lower lobe, left bronchus or lung (principal); R91.8 Other nonspecific abnormal finding of lung field; Z87.891 Personal history of nicotine dependence | CPT/HCPCS: 99212 ==

== ENCOUNTER 2025-01-14 07:36 | Outpatient (REF) | payer OTHER, SELFPAY ==
--- OUTSIDE RECORDS SUMMARY | 2025-01-14 07:40 | XMS_ITS | Encounter Summary ---
Author Organization [employer] Address [address] [facility] 7t [place] [address] Care Team Providers Care Trash Collector Name Role Phone Linda Murphy DO Primary Care Provider [phone] Antionette Murphy PharmD Unavailable [phone] Reason for Visit * Reason Comments Med Refill Encounter Details Date Type Department Care Team ([facility] st Contact Info) Description 07/03/2024 Refill [facility] [address] [place] [address] Linda Murphy DO [address] [place] [address] Tobacco dependence Social History Tobacco Use Types [...] Description 01/19/2025 11:45 AM EDT Office Visit [facility] [address] [place] [phone] Linda Murphy DO [address] [place] [phone] documented as of this encounter Goals Goal [...] documented as of this encounter Care Teams Trash Collector Relationship Specialty Start Date End Date Linda Murphy DO [address] [place] [phone] PCP - General Family Medicine 11/24/12 Antionette Murphy PharmD [address] [place] [phone] Pharmacist Internal Medicine 07/15/24 documented as of this encounter
--- OUTSIDE RECORDS SUMMARY | 2025-01-14 07:40 | XMS_ITS | Encounter Summary ---
Author Organization [employer] Address [address] [facility] 7t [place] [address] Care Team Providers Care Insurance Consultant Name Role Phone Linda Murphy DO Primary Care Provider [phone] Antionette Murphy PharmD Unavailable [phone] Reason for Visit * Reason Comments Med Refill Encounter Details Date Type Department Care Team ([facility] st Contact Info) Description 02/23/2024 Refill [facility] [address] [place] [address] Linda Murphy DO [address] [place] [address] Chronic obstructive pulmonary disease, unspecified COPD type [...] 11:45 AM EDT Office Visit [facility] [address] [place] [phone] Linda Murphy DO [address] [place] [phone] documented as of this encounter Goals Goal [...] documented as of this encounter Care Teams Insurance Consultant Relationship Specialty Start Date End Date Linda Murphy DO [address] [place] [address] [phone] PCP - General Family Medicine 11/24/12 Antionette Murphy PharmD [address] [place] [address] [phone] Pharmacist Internal Medicine 07/15/24 documented as of this encounter
--- OUTSIDE RECORDS SUMMARY | 2025-01-14 07:40 | XMS_ITS | Encounter Summary ---
Author Organization [employer] Address [address] [facility] [address] 7t [place] [address] Care Team Providers Care Lacquer Shader Name Role Phone Linda Murphy DO Primary Care Provider [phone] Antionette Murphy PharmD Unavailable [phone] Reason for Visit * Reason Onset Date Comments Medication Question 11/13/2023 Encounter Details Date Type Department Care Team ([facility] st Contact Info) Description 11/13/2023 Telephone [facility] 230 [place] [address] Linda Murphy DO [address] [place] [address] Medication Question Social History Tobacco Use Types [...] 11/08 Physical appointment. Please contact pt at [phone] documented in this encounter Plan of Treatment Upcoming Encounters Date Type Department Care Team (Late st Contact Info) Description 01/19/2025 11:45 AM EDT Office Visit [facility] [address] [place] [address] Linda Murphy DO [address] [place] [address] documented as of this encounter Goals Goal [...] documented as of this encounter Care Teams Lacquer Shader Relationship Specialty Start Date End Date Linda Murphy DO [address] [place] [phone] PCP - General Family Medicine 11/24/12 Antionette Murphy, Kaiden [address] [place] [phone] Pharmacist Internal Medicine 07/15/24 documented as of this encounter
--- OUTSIDE RECORDS SUMMARY | 2025-01-14 07:40 | XMS_ITS | Clinical Summary ---
Author Organization [employer] Address [address] [facility] [address] [place] [address] Care Team Providers Care Wood Furniture Assembler Name Role Phone Linda Murphy DO Primary Care Provider PuAntionette ellison PharmD Unavailable [phone] Allergies Active Allergy Reactions Criticality Noted [...] complication, without long-term current use of insulin ([facility]) Inject 1 each under the skin 2 [...] complication, without long-term current use of insulin ([facility]) USE EVERY DAY UP TO TWICE DAILY 100 each 08/12/20 24 Active glucose blood (FREESTYLE LITE) test stripIndicatio ns:Type 2 diabetes mellitus without complication, without long-term current use of insulin ([facility]) Use to check blood sugar up to twice daily 100 each 08/12/20 24 Active TRUEplus Lancets 33G miscIndication s:Type 2 diabetes mellitus without complication, without long-term current use of insulin ([facility]) Use to check blood sugar up to twice daily 100 each 08/12/20 24 Active semaglutide (Rybelsus) 7 MG tablet TAKE 1 TABLET EVERY MORNING, 30 MINUTES BEFORE A MEAL ICD10= 30 tablet 5 08/26/20 24 Active Aspirin Low Dose 81 MG EC tabletIndicati ons:Type 2 diabetes mellitus with other specified complication, unspecified whether terminal clerk insulin use ([facility]) TAKE 1 TABLET BY MOUTH EVERY EVENING 90 tablet 1 09/02/20 24 Active metFORMIN XR (Glucophage-XR ) 500 MG 24 hr tabletIndicati ons:Type 2 diabetes mellitus without complication, without long-term current use of insulin ([facility]) TAKE 2 TABLETS BY MOUTH TWICE DAILY [...] instrumentation of the toenail - refer to pattern chart writer - TB UTD Plantar callus 08/26/2024 Assessment & Plan (08/26/2024 11:45 AM EDT): - non-tender, refer to podiatry for further f/u - advised regarding routine foot exam, re consult PRN Onychomycosis of multiple to enails with type 2 diabetes mellitus ([facility]) 08/26/2024 Assessment & Plan (08/26/2024 11:45 AM [...] -f/u with pain mgmt prn -advised contact [facility] if sx change or worsen Leukocytosis 11/08/2023 [...] Type Department Care Team Description 01/12/2025 Telephone [facility] MEDICINE [address] [place] [address] No Lopez, RN NCNS ARCHITECTURAL DESIGN PROFESSOR RV today 01/07/2025 Telephone [facility] MEDICINE [address] [place] [address] No Lopez, RN NCNS for ARCHITECTURAL DESIGN PROFESSOR RV today 01/07/2025 Telephone [facility] MEDICINE [address] [place] [address] No Lopez, RN Recommend ARCHITECTURAL DESIGN PROFESSOR Tier 2 01/05/2025 Orders Only GENERIC EXTERNAL DATA DEPARTMENT Provider, Generic External Data 12/23/2024 Refill [facility]BI[facility] [address] [place] [address] Linda Murphy DO Chronic GERD 12/21/2024 Refill [facility] CHC MED & PEDS [address] [place] [address] Linda Murphy, Chronic low back pain, unspecified back pain laterality, unspecified whether sciatica present 12/18/2024 Refill [facility] MEDICINE [address] [place] [address] Linda Murphy DO 12/18/2024 Refill [facility] PED[facility] [address] [place] [address] Linda Murphy, Acute post-traumatic headache, not intractable; Chronic obstructive pulmonary disease, unspecified COPD type ([facility]) 12/18/2024 Refill [facility] [address] [facility] [place] [address] Linda Murphy, Type 2 diabetes mellitus without complication, without long-term current use of insulin ([facility]); Type 2 diabetes mellitus with other specified complication, unspecified whether senior living insulin use ([facility]); Chronic obstructive pulmonary disease, unspecified COPD type ([facility]) 12/15/2024 Orders Only GENERIC EXTERNAL DATA DEPARTMENT Provider, Generic External Data 12/07/2024 Telephone [facility] MEDICINE [address] [place] [address] Linda Murphy DO 12/06/2024 Orders Only GENERIC EXTERNAL DATA DEPARTMENT Provider, Generic External Data 12/01/2024 Refill [facility] PEDS [address] [place] [address] Linda Murphy DO Acute post-traumatic headache, not intractable; Chronic obstructive pulmonary disease, unspecified COPD type ([facility]) 11/25/2024 Orders Only [facility] External Provider, [facility] 11/18/2024 Travel 11/14/2024 Refill [facility] MEDICINE [address] [place] [address] Linda Murphy DO 11/04/2024 Refill [facility] MEDICINE [address] [place] [address] Linda Murphy DO Acute post-traumatic headache, not intractable 10/30/2024 Telephone [facility] MEDICINE [address] [place] [address] Joselyn García, KRYSTYNA PET results 10/30/2024 Telephone [facility] MEDICINE [address] [place] [address] Murphy DO PET [address] RESULTS 10/24/2024 Refill [facility] MEDICINE [address] [place] [address] Linda Murphy DO 10/21/2024 Telephone [facility] MEDICINE [address] [place] [address] Linda Murphy DO Referral 10/21/2024 Telephone [facility] MEDICINE [address] [place] [address] Linda Murphy, Referral from Last 3 Months [...] Description 01/19/2025 11:45 AM EDT Office Visit [facility] MEDICINE [address] [place] [address] Linda Murphy DO [address] [place] [address] Health Maintenance Due Date Last Done Comments [...] EST Narrative 01/06/2025 9:00 AM EST ? [facility] ?[address] ?[place] [address] ?XRay Report ? Signed ? Patient: Sara,Tisha ?MR#: [id number] ?? 61 ? : 1970 ?Acct:[id number] ? Age/Sex: 54 / F ?ADM Date: 02/25/25 ? Loc: HO.SSS ? Attending Dr: Mario Hoyt MD ? Ordering Physician: Rogelio Sales ?? Date of Service: 01/05/25 ?? Procedure(s): XR chest 1V ?? Accession Number(s): [id number] ? cc: Linda Murphy DO; Rogelio Sales [...] DD/ 1241 ? TD/TT: 01/05/25 1241 ? Service Delivery Manager: ? Procedure Note Gonzalez, Elena - 01/06/2025 [place] [address] XRay Report Signed Patient: Ayanna RuiznMR#: [id number] 61 : 1970Acct:[id number] Age/Sex: 54 / FADM Date: 01/05/25 Loc: HO.SSS Attending Dr: Mario Hoyt MD Ordering Physician: Rogelio Sales Date of Service: 01/05/25 Procedure(s): XR chest 1V Accession Number(s): [id number] cc: Linda Murphy DO; Rogelio Sales EXAMINATION: [...] 01/06/25 0857 DD/ 1241 TD/TT: 01/05/25 1241 Service Delivery Manager: [facility] External Provider IMG XR PROCEDURES Final Result * Gross and Microscopic Level 4 (01/05/2025 10:57 AM EST) 01/05/2025 10:5 7 AM EST 01/05/2025 11:19 AM EST [facility] - 01/07/2025 2:12 PM EST ----- ------- Name: Tisha Ruiz ? Age/Sex: 54/F ? : 1970 Unit#: [id number] ?? Attend Dr: Mario Hoyt MD ?Re01/05/25 ?Status: DEP SDC ? Location: HO.SSS ?Disch: ? ----- ------- SPEC : [id number] ?RECD: 01/05/25-1119 ? STATUS: ??SOUT ? REQ NUM: [id number] ? HILARY: 01/05/25-1056 ? SUBM DR: Rogelio [...] ? Age/Sex: 54/F ? : 1970 Unit#: [id number] ?? Attend Dr: Mario Hoyt MD ?Re01/05/25 ?Status: DEP SDC ? Location: HO.SSS ?Disch: ? ----- ------- SPEC : [id number] ?RECD: 01/05/25-1119 ? STATUS: ??SOUT ? REQ NUM: [id number] ? HILARY: 01/05/25-1057 ? SUBM DR: Rogelio [...] Copies To: ?? Linda Murphy DO ?? [facility] ?? [address] ?? [place] ?? [phone] ?? Mario Hoyt MD ?? [facility] ?? [address] ?? [place], [place] ?? [phone] ?? [email or web address] ?? Rogelio Sales ?? [address] ?? [place] ?? [phone] ?? [email or web address] ----- ------- Signed (signature on file) Anuradha Malin 01/06/258 ? ----- ------- ? END OF REPORT ? us Generic External Data Provider ALEX VALENTINO Final Result [facility] [address] [place] [address] [phone] * CT Biopsy Lung Left (01/05/2025 10:18 AM EST) Anatomical Region Laterality Modality Computed Tomogra phy 01/05/2025 10:1 8 AM EST Narrative 01/06/2025 2:23 PM EST ? [facility] ?[address] ?[place] [address] ? CT Scan Report ? Signed ? Patient: Tisha Ruiz ?MR#: [id number] ?? 61 ? : 1970 ?Acct:[id number] ? Age/Sex: 54 / F ?ADM Date: 01/05/25 ? Loc: HO.SSS ? Attending Dr: Mario Hoyt MD ? Ordering Physician: Mario Hoyt MD ?? Date of Service: 01/05/25 ?? Procedure(s): CT biopsy lung LT ?? Accession Number(s): [id number] ? cc: Linda Murphy DO; Mario Hoyt MD ? Report Number: ?? [id number]: Total DLP = ??490.00 mGy-cm ?? 54-year-old [...] DD/ 1018 ? TD/TT: 01/05/25 1119 ? Service Delivery Manager: ? Procedure Note Elena Roth - 01/06/[address] [address] [address] Scan Report Signed Patient: Ayanna RuizElmerR#: [id number] 61 : 1970Acct:[id number] Age/Sex: 54 / FADM Date: 01/05/25 Loc: .SSS Attending Dr: Mario Hoyt MD Ordering Physician: Mario Hoyt MD Date of Service: 01/05/25 Procedure(s): CT biopsy lung LT Accession Number(s): [id number] cc: Linda Murphy DO; Mario Hoyt MD Report Number: [id number]: Total DLP = 490.00 mGy-cm 54-year-old female [...] 01/06/25 1423 DD/ 1018 TD/TT: 01/05/25 1119 Service Delivery Manager: [facility] External Provider IMG CT PROCEDURES Final Result * (ABNORMAL) Glucose, Whole Blood (01/05/2025 9:48 AM EST) Only the most recent of3 resultswithin the time period is included. Glucose, Whole Blood 149(H) 60 - 115 mg/dL [facility] Comment:METER #: [id number] 01/05/2025 9:48 AM EST 01/05/2025 9:53 AM EST Generic External Data Provider LAB BLOOD ORDERAB LES Final Result [facility] [address] [place] [phone] * (ABNORMAL) Partial Thromboplastin Time, Activated (APTT) (12/15/2024 9:21 AM EST) Partial Thromboplastin Time 40.1(H) 26.0 - 36.8 SEC [facility] Comment:For information rega rding the monitoring of direct thrombininhibitors, please refer to Pharmacy. 12/15/2024 9:21 AM EST 12/15/2024 9:24 AM EST Generic External Data Provider LAB BLOOD ORDERAB LES Final Result Performing Organization Address [facility]/ZIP Co de Phone Number [facility] [address] [place] [phone] * (ABNORMAL) Prothrombin Time-INR (12/15/2024 9:21 AM EST) Prothrombin Time 9.9(L) 10.9 - 12.4 SEC [facility] INTERNATIONAL NORM RATIO 0.9 0.9 - 1.1 [facility] Comment:INTERNATIONAL NORMAL IZED RATIO [...] ORDERAB LES Final Result Performing Organization Address [facility] Co de Phone Number [facility] [address] [place] [phone] * (ABNORMAL) Urinalysis, Complete, with Reflex to Culture (12/06/2024 12:50 PM EST) Color Urine Yellow [facility] Appearance Urine Clear [facility] PH 7.5 5.0 - 9.0 [facility] Glucose Urine UA Negative Negative mg/dL [facility] Urine Blood Negative Negative [facility] Specific [place] - Urine 1.015 1.005 - 1.025 [facility] Urine Protein Trace Neg-Trace mg/dL [facility] Urine Ketones Negative Negative mg/dL [facility] Nitrite Urine Negative Negative [facility] Leukocyte Esterase Urine Small (1+)(A) Negative [facility] RBC Urine 0-2 0 - 2 /HPF [facility] Urine WBC 11-20(A) 0 - 5 /HPF [facility] Urine Squamous Epithelial Cell 0-2 0 - 2 /HPF [facility] Urine Bacteria Trace None Seen [facility] Hyaline Casts, Urine 0-2 0 - 2 /LPF [facility] 12/06/2024 12:5 0 PM EST 12/06/2024 1:03 PM EST Narrative [facility] - 12/06/2024 1:24 PM EST Urine, Clean Catch us Generic External Data Provider LAB URINE ORDERAB LES Final Result [facility] [address] [place] [address] [phone] * SARS-CoV-2 RNA, Influenza A/B, and RSV RNA, Ql NAAT (12/06/2024 12:50 PM EST) Influenza A PCR NEGATIVE Negative [facility] Influenza B PCR NEGATIVE Negative [facility] Resp Syncy Virus RNA Qual PCR NEGATIVE Negative [facility] SARS COV2 PCR NEGATIVE Negative [facility] Comment:All test results mus t [...] use by authorized laboratories.Testing performed on the [employer] GeneXpert utilizingreal-time RT-PCR.All SARS CoV2 and positive influenza A/B results arereported to [facility]. 12/06/2024 12:5 0 PM EST 12/06/2024 1:03 PM EST us Generic External Data Provider LAB MICROBIOLOGY - GENERAL ORDERABLES Final Result [facility] [address] [place], [place] [phone] * (ABNORMAL) CBC auto differential (12/06/2024 12:50 PM EST) White Blood Count 11.3(H) 4.8 - 10.8 X10*3/uL [facility] Red Blood Count 4.94 4.20 - 5.50 X10*6/uL [facility] Hemoglobin 13.8 12.0 - 16.0 g/dl [facility] Hematocrit 41.6 37.0 - 47.0 % [facility] Mean Corpuscular Volume 84.2 80.0 - 98.0 fL [facility] Mean Corpuscular Hemoglobin 27.9 27.0 - 33.0 pg [facility] Mean Corpuscular HGB Conc 33.2 31.0 - 35.0 g/dl [facility] Red Cell Distribution Width 13.9 11.0 - 16.0 % [facility] Platelet Count 327 160 - 400 X10*3/uL [facility] Mean Platelet Volume 9.7 9.4 - 12.3 fL [facility] Neutrophils Percent Auto 71.7 45 - 73 % [facility] Imm Gran Pct Auto 0.5(H) 0.0 - 0.4 % [facility] Lymphocytes Percent Auto 20.7 20 - 40 % [facility] Monocytes Percent Auto 5.6 2 - 11 % [facility] Eosinophils Percent Auto 1.1 0 - 4 % [facility] Basophils Percent Auto 0.4 0 - 2 % [facility] NRBC Pct Auto 0.0 0.0 - 0.2 /100WBC [facility] Neutrophils Absolute Auto 8.1 2.0 - 8.3 x10*3/uL [facility] Imm Gran Abs Auto 0.06(H) 0.00 - 0.03 X10*3/uL [facility] Lymphocytes Absolute Auto 2.4 1.2 - 4.9 X10*3/uL [facility] Monocytes Absolute Auto 0.6 0.1 - 1.2 X10*3/uL [facility] Eosinophils Absolute Auto 0.1 0.0 - 0.4 X10*3/uL [facility] Basophils Absolute Auto 0.0 0.0 - 0.2 X10*3/uL [facility] NRBC Abs Auto 0.000 0.0 - 0.012 X10*3/uL [facility] 12/06/2024 12:5 0 PM EST 12/06/2024 1:03 PM EST Generic External Data Provider LAB BLOOD ORDERAB LES Final Result Performing Organization Address [facility] Phone Number [facility] [address] [place] [phone] * (ABNORMAL) Hepatic Function Panel (12/06/2024 12:50 PM EST) Pathologist [facility] Bilirubin, Total 0.2 0.0 - 1.0 mg/dL [facility] Bilirubin, Direct <0.2 0.0 - 0.5 mg/dL [facility] Aspartate Amino Transferase 23 5 - 31 U/L [facility] Alanine Aminotransferase 26 0 - 31 U/L [facility] Total Protein 8.1(H) 6.5 - 8.0 g/dL [facility] Albumin Level 4.4 3.5 - 5.0 g/dL [facility] Alkaline Phosphatase 92 39 - 117 U/L [facility] 12/06/2024 12:5 0 PM EST 12/06/2024 1:03 PM EST Generic External Data Provider LAB BLOOD ORDERAB LES Final Result Performing Organization Address [facility] Phone Number [facility] [address] [place] [phone] * (ABNORMAL) Basic Metabolic Panel (12/06/2024 12:50 PM EST) Pathologist [facility] Sodium 143 135 - 145 mmol/L [facility] Potassium 4.4 3.3 - 5.1 mmol/L [facility] Chloride 103 96 - 108 mmol/L [facility] Carbon Dioxide 30(H) 22 - 29 mmol/L [facility] Anion Gap 14 12 - 20 [facility] Urea Nitrogen (BUN) 13 9 - 16 mg/dL [facility] Creatinine, Serum 1.10 0.5 - 1.4 mg/dL [facility] Creatinine Clr Calc Pharmacy 69.7 [facility] Comment:Provided height and weight: 170.18 cm,92.1 kg.eGFR (calculated from the MDRD study equation) and eCrCl(calculated from the Cockcroft-Gault equation) are based ondifferent parameters and may not yield comparable results.If eCrCl result is absurd, please check patient'sheight/weight. Estimated Glomerular Filt Rate 52 [facility] Comment:Chronic Kidney Disea se: Estimated GFR < 60 mL/min/1.10n5Bgneuz Kidney Disease: Estimated GFR < 15 mL/min/1.73m2 Glucose 170(H) 60 - 115 mg/dL [facility] Calcium 9.5 8.4 - 10.2 mg/dL [facility] 12/06/2024 12:5 0 PM EST 12/06/2024 1:03 PM EST us Generic External Data Provider LAB BLOOD ORDERAB LES Final Result [facility] [address] [place] [phone] * Culture, Urine, Routine (12/06/2024 12:00 AM EST) Urine Urine specimen obtained by clean catch procedure / Unknown 12/06/2024 12/06/2024 Comment:[facility] Narrative [facility] - 12/07/2024 8:13 AM EST Urine Culture Report Result Urine Culture 50,000 to 100,000 cfu/ml Urine Culture Mixed bacterial cabrera characteristic of Urine Culture urogenital contamination. Specimen Source: Urine clean catch us Generic External Data Provider LAB MICROBIOLOGY - GENERAL ORDERABLES Final Result [facility] [address] [facility] [place] [phone] [phone] * US Head Neck Soft Tissue (11/25/2024 2:35 PM EST) Anatomical Region Laterality Modality Head, Neck Ultrasound 11/25/2024 2:35 PM EST Narrative 11/26/2024 8:32 AM EST ? [facility] ?[address] ?[place] [address] ? Ultrasound Report ? Signed ? Patient: SaraTisha ?MR#: [id number] ?? 61 ? : 1970 ?Acct:[id number] ? Age/Sex: 54 / F ?ADM Date: 11/25/24 ? Loc: HO.US ? Attending Dr: Geneva Candelario MD ? Ordering Physician: Geneva Candelario MD ?? Date of Service: 11/25/24 ?? Procedure(s): US soft tiss head and/or neck ?? Accession Number(s): [id number] ? cc: Linda Murphy DO; Geneva Candelario [...] DD/ 1435 ? TD/TT: 11/25/24 1450 ? Service Delivery Manager: MSM ? Procedure Note Gonzalez, Image - 11/26/[address] [address] Ultrasound Report Signed Patient: Ayanna RuiznMR#: [id number] 61 : 1970Acct:[id number] Age/Sex: 54 / FADM Date: 11/25/24 Loc: HO.US Attending Dr: Geneva Candelario MD Ordering Physician: Geneva Candelario MD Date of Service: 11/25/24 Procedure(s): US soft tiss head and/or neck Accession Number(s): [id number] cc: Linda Murphy DO; Geneva Candelario MD [...] 11/26/24 0829 DD/ 1435 TD/TT: 11/25/24 1450 Service Delivery Manager: DAMI [facility] External Provider IMG US PROCEDURES Edited Result - Final * Albumin, Random Urine W/Creatinine (08/13/2024 3:30 PM EDT) Creatinine, Urine 21.51 mg/dL [facility] Microalbumin Urine <5.0 mg/L [facility] Microalbum Creatinine Ratio Ur TNP <30 ug/mg cr [facility] Comment:Unable to calculate albumin/creatinine ratio due to lowmicroalbumin or creatinine result. Urine (Urine, Random) 08/13/2024 3:30 PM EDT 08/13/2024 3:38 PM EDT Linda Murphy DO LAB URINE ORDERABLES Final R esult [facility] [address] [place] [phone] * (ABNORMAL) Hemoglobin A1c (08/13/2024 3:26 PM EDT) Hemoglobin A1c 7.4(H) <6.0 % [facility] Comment:Hemoglobin A1C Refer ence Range Adults: 4.8 - 6.0 % Non diabetic: < 6.0 % Goal: < 7.0 %Additional Action Suggested: > 8.0 %Note: Hemoglobin A1c results are invalid for patients with abnormal amounts of HbF. Blood transfusions may impact the HbA1c concentration in the patient sample. Estimated Average Glucose 166 mg/dL [facility] Comment:eAG = Estimated ave rage glucose which is %A1C expressed asaverage glucose, using the formula of the P1M-YbvmuetIighlqj Glucose study (ADAG), Diabetes Care, Vol.31,#8,Jun. 2007 Blood Venous blood specimen / Unknown 08/13/2024 3:26 PM EDT 08/13/2024 3:26 PM EDT Linda Murphy LAB BLOOD ORDERABLES Final R esult Performing Organization Address City/[facility]/ZIP Co de Phone Number [facility] [address] [place] [phone] * (ABNORMAL) Lipid Panel, Standard (08/13/2024 3:26 PM EDT) Triglycerides 257(H) <150 mg/dL [facility] Comment:Desirable Triglyceri de: less than 150 mg/dLBorderline High Triglyceride 150-199 mg/dLHigh Triglyceride: 200-499 mg/dLVery High Triglyceride: greater than or equal to 5OO mg/dL Cholesterol 151 <200 mg/dL [facility] Comment:Desirable Cholestero l: less than 200 mg/dLBorderline High Cholesterol: 200-239 mg/dLHigh Cholesterol: greater than 239 mg/dL LDL Cholesterol Calculated 61 <100 mg/dL [facility] Comment:Desirable LDL: less than 100 mg/dLNear Optimal/Above Optimal LDL: 110- 129 mg/dLBorderline High LDL: 130-159 mg/dLHigh LDL: 160-189 mg/dLVery High LDL: greater than or equal to 190 mg/dL HDL Cholesterol 39(L) >40 mg/dL [facility] Comment:Desirable HDL: great er than 40 mg/dL Note: This HDL assay may give artificially low results in patients with liver disease. Blood Venous blood specimen / Unknown 08/13/2024 3:26 PM EDT 08/13/2024 3:26 PM EDT Linda Murphy DO LAB BLOOD ORDERABLES Final R esult Performing Organization Address [facility]/ZIP Co de Phone Number [facility] [address] [place] [phone] * HIV Ab/Ag (MA DP) (08/26/2023 2:47 PM EDT) HIV AB/AG Nonreactive Nonreactive [facility] Comment:HIV-1 p24 Ag and/or HIV-1/HIV-2 Ab not detected.A test result that is nonreactive does not exclude thepossibility of exposure to or infection with HIV-1 and/orHIV-2. Nonreactive results in this assay for individualswith prior exposure to HIV-1 and/or HIV-2 may be due toantigen and antibody levels that are below the limit ofdetection of this assay.The [employer] HIV Ag/Ab Combo assay result andsupplemental assay results should be interpreted inconjunction with the patient's clinical presentation,history and other laboratory results. If the results areinconsistent with clinical evidence, additional testing issuggested to confirm the result. 08/26/2023 2:47 PM EDT 08/26/2023 2:47 PM EDT Linda Murphy DO LAB BLOOD ORDERABLES Final R esult Performing Organization Address City/[facility]/ZIP Co de Phone Number [facility] [address] [place] [phone] * Hepatitis C Antibody with Reflex to HCV, RNA, Quantitative, Real-Time PCR (08/26/2023 2:47 PM EDT) Hepatitis C Antibody Nonreactive Nonreactive [facility] Comment:Antibodies to HCV no t detected; does not exclude early acuteHCV infection. 08/26/2023 2:47 PM EDT 08/26/2023 2:47 PM EDT Linda Murphy LAB BLOOD ORDERABLES Final R esult Performing Organization Address City/[facility]/ZIP Co de Phone Number [facility] [address] [place] [phone] * HPV E6/E7 RFLX LUIS 16 18/45 (05/21/2022 3:45 PM EDT) HPV mRNA E6/E7 rflx Not Detected Not Detected [email or web address] SYSTEM Comment: Methodology: Psychology Intern-Mediated Amplification This assay detects E6/E7 viral messenger RNA (mRNA) from 14 high-risk HPV types (16,18,31,33,35,39,45,51,52,56,58,59,66,68). Cervical sources are required for HPV testing. If a vaginal source from a patient who has had a total hysterectomy with removal of cervix was submitted, please contact the testing laboratory for alternative testing options. For additional information, please refer to http://education.[employer]/faq/WZA223k4 (This link if provided for information/ educational purposes only.) THIS TEST WAS PERFORMED AT: [employer] [address] [place] [address],[address] [place], [place] ??[address] VALERIA DURANT MD 05/21/2022 3:45 PM EDT Fercho Palmer MD HISTORICAL/NON ORDERABLE LABS Fi nal Result Performing Organization Address City/[facility]/ZIP Co de Phone Number [facility] [address] * Pap Smear (02/15/2022 12:00 AM EDT) Swab Linda Murphy DO LAB CYTOLOGY ORDERABLES Ce l Result Performing Organization Address City/[facility]/ZIP Co de Phone Number [employer] [address] [place] [address], [place] [address] * DIGITAL BILATERAL SCREEN 1 (04/01/2019 2:56 [...] Most Recently Relevant to Health Maintenance Insurance [facility] Care Teams Wood Furniture Assembler Relationship Specialty Start Date End Date Linda Murphy DO [address] [place], [place] [phone] PCP - General Family Medicine 11/24/12 Antionette Murphy PharmD [address] [place], [place] [phone] Pharmacist Internal Medicine 07/15/24
--- OUTSIDE RECORDS SUMMARY | 2025-01-14 07:40 | XMS_ITS | Encounter Summary ---
Author Organization [employer] Address 75 [facility] 7t [place] [address] Care Team Providers Care Meeting Planner Name Role Phone Linda Murphy DO Primary Care Provider [phone] Antionette Murphy PharmD Unavailable [phone] Reason for Visit * Reason Comments Med Refill Encounter Details Date Type Department Care Team ([facility] st Contact Info) Description 11/24/2023 Refill [facility] 230 [place] [address] Linda Murphy DO 230 [place] [address] Social History Tobacco Use Types Packs/Day Years [...] Description 01/19/2025 11:45 AM EDT Office Visit [facility] MED[facility] [address] [place] [address] Linda Murphy DO [address] [place] [address] documented as of this encounter Goals Goal [...] documented as of this encounter Care Teams Meeting Planner Relationship Specialty Start Date End Date Linda Murphy DO [address] [place] [address] PCP - General Family Medicine 11/24/12 Antionette Murphy PharmD [address] [place] [address] Pharmacist Internal Medicine 07/15/24 documented as of this encounter
--- OUTSIDE RECORDS SUMMARY | 2025-01-14 07:40 | XMS_ITS | Encounter Summary ---
Author Organization [employer] Address 75 [facility] 7t [place] [address] Care Team Providers Care Mental Health Social Worker Name Role Phone Linda Murphy DO Primary Care Provider [phone] Dellogla Neri PharmD Unavailable Unavail able Antionette Murphy PharmD Unavailable Reason for Visit * Reason Onset Date Comments triage 11/14/2022 Encounter Details Date Type Department Care Team (Late st Contact Info) Description 11/14/2022 Telephone [facility] MEDICINE 230 [place] [address] Linda Murphy DO 230 [place], [place] [phone] triage Social History Tobacco Use Types Packs/Day [...] EST Triage call Pt reports seen in [facility] today. Pt reports bruising on bilateral [...] 01/19/2025 11:45 AM EDT Office Visit [facility] MEDICINE [address] [place] [address] Linda Murphy DO 230 [place] [address] documented as of this encounter Visit Diagnoses Not on filedocumented in this encounter Care Teams Mental Health Social Worker Relationship Specialty Start Date End Date Linda Murphy DO [address] [place] [address] PCP - General Family Medicine 11/24/12 Neri Yang PharmD [address] [place] [address] Pharmacist Internal Medicine 11/23/22 10/17/23 Antionette Murphy PharmD [address] [place] [address] [place] [address] Pharmacist Internal Medicine 07/15/24 documented as of this encounter
--- OUTSIDE RECORDS SUMMARY | 2025-01-14 07:40 | XMS_ITS | Encounter Summary ---
Author Organization [employer] Address 75 [facility] 7t [place] [address] Care Team Providers Care Stock Grader Name Role Phone Linda Murphy DO Primary Care Provider [phone] Dellogono Neri PharmD Unavailable Unavail able Antionette Murphy PharmD Unavailable Reason for Visit * Reason Comments Med Refill Encounter Details Date Type Department Care Team (Late Contact Info) Description 04/10/2023 Refill [facility] MED & PEDS [address] [place] [address] Linda Murphy DO [address] [facility] [place] [address] Social History Tobacco Use Types Packs/Day Years [...] Description 01/19/2025 11:45 AM EDT Office Visit [facility] MEDICINE 230 [place] [address] Linda Murphy DO 230 [place] [address] documented as of this encounter Goals Goal [...] documented as of this encounter Care Teams Stock Grader Relationship Specialty Start Date End Date [place] [address] PCP - General Family Medicine 11/24/12 Neri Yang, PharmD [address] [place] [address] Pharmacist Internal Medicine 11/23/22 10/17/23 Antionette Murphy, EricD [address] [place] [address] Pharmacist Internal Medicine 07/15/24 documented as of this encounter
--- OUTSIDE RECORDS SUMMARY | 2025-01-14 07:40 | XMS_ITS | Encounter Summary ---
Author Organization [employer] [facility] Address 75 [facility] 7t [place] [address] Care Team Providers Care Medical Claims Specialist Name Role Phone Linda Murphy DO Primary Care Provider Dellogla Neri PharmD Unavailable Unavail able Antionette Murphy PharmD Unavailable Reason for Visit * Reason Comments Med Refill Encounter Details Date Type Department Care Team (Late Contact Info) Description 07/08/2023 Refill [facility] MEDICINE [address] [place] [address] Linda Murphy DO 230 [place] [address] Pain Social History Tobacco Use Types Packs/Day [...] Description 01/19/2025 11:45 AM EDT Office Visit [facility] MEDICINE [address] [place] [address] Linda Murphy DO 230 [place] [address] documented as of this encounter Goals Goal [...] documented as of this encounter Care Teams Medical Claims Specialist Relationship Specialty Start Date End Date Linda Murphy DO [address] [place] [address] PCP - General Family Medicine 11/24/12 Neri Yang, PharmD [address] [place] [address] Pharmacist Internal Medicine 11/23/22 10/17/23 Antionette Murphy PharmD [address] [place] [address] Pharmacist Internal Medicine 07/15/24 documented as of this encounter
--- OUTSIDE RECORDS SUMMARY | 2025-01-14 07:40 | XMS_ITS | Encounter Summary ---
Author Organization [employer] Address 75 [facility] 7t [place] [address] Care Team Providers Care Woodwinds Teacher Name Role Phone Linda Murphy DO Primary Care Provider [phone] Antionette Murphy PharmD Unavailable [phone] Reason for Visit * Reason Onset Date Comments Durable Medical Equipment 03/06/2024 Encounter Details Date Type Department Care Team ([facility] st Contact Info) Description 03/06/2024 Telephone [facility] MEDICINE 230 [place] [address] Linda Murphy DO 230 [place] [address] Durable Medical Equipment Social History Tobacco Use [...] Description 01/19/2025 11:45 AM EDT Office Visit [facility] MEDICINE 230 [place] [address] Linda Murphy DO [address] [place] [address] documented as of this encounter Goals Goal [...] documented as of this encounter Care Teams Woodwinds Teacher Relationship Specialty Start Date End Date Linda Murphy DO 230 [place] [address] PCP - General Family Medicine 11/24/12 Antionette Murphy, EricD [address] [place] [address] Pharmacist Internal Medicine 07/15/24 documented as of this encounter
--- OUTSIDE RECORDS SUMMARY | 2025-01-14 07:40 | XMS_ITS | Encounter Summary ---
Author Organization [employer] [facility] Address 75 [facility] 7t [place] [address] Care Team Providers Care Security Installation Sales Technician Name Role Phone Linda Murphy DO Primary Care Provider Dellogono Neri PharmD Unavailable Unavail able Antionette Murphy PharmD Unavailable Reason for Visit * Reason Comments Med Refill Encounter Details Date Type Department Care Team (Late st Contact Info) Description 04/05/2023 Refill [facility] 230 [place] [address] Linda Murphy DO 230 [place] [address] Social History Tobacco Use Types Packs/Day Years [...] Description 01/19/2025 11:45 AM EDT Office Visit [facility] 230 [place] [address] Linda Murphy DO 230 [place] [address] documented as of this encounter Goals Goal [...] documented as of this encounter Care Teams Security Installation Sales Technician Relationship Specialty Start Date End Date Linda Murphy DO [address] [place] [address] PCP - General Family Medicine 11/24/12 Neri Yang, PharmD [address] [place] [address] Pharmacist Internal Medicine 11/23/22 10/17/23 Antionette Murphy PharmD [address] [place] [address] Pharmacist Internal Medicine 07/15/24 documented as of this encounter
--- OUTSIDE RECORDS SUMMARY | 2025-01-14 07:40 | XMS_ITS | Encounter Summary ---
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 FASCITIS * Orthopedic (Routine) - Closed Specialty Diagnoses / Procedures Referred By Rolf pascual Referred To Contact Podiatry / Orthopaedic Surgery Diagnoses Plantar callus Procedures AMB REFERRAL TO PODIATRY Asuncion Bailey MD [address] [address] Phone: tel: fax: Gutierrez Ruiz DPM [address] [address] Phone: tel: fax: Referral ID Status Reason Start Date Expiration Date V isits Requested Visits Authorized [id number] Closed Consult and Treat 1 Encounter Details Date Type Department Care Team (Late st Contact Info) Description 12/29/2024 1:45 PM EST Office Visit Orthopedic Surgery - [address] [phone] Gutierrez Ruiz DPM [address] [address] Controlled type 2 diabetes with neuropathy (CMS/HCC) [...] Sharp/dull sensation intact, protective sensation intact on [place]. Peripheral neuropathy throughout the feet bilaterally ORTHOPEDIC: [...] Continue with regular appointments with PMD or lathe scalper operator for tight medical management Patient found to [...] Patient shown different offloading measures (metatarsal pads). [id number]: Destruction of eccrine poroma left foot: Verbal [...] AM EDT Office Visit Orthopedic Surgery - [place] [address] [phone] Gutierrez Ruiz DPM [address] [address] documented as of this encounter Visit Diagnoses Diagnosis Controlled type 2 diabetes with neuropathy (CMS/[facility])- Primary Type II or unspecified type [...] split. added in this encounter Care Teams Relay Mechanic Relationship Specialty Start Date End Date Linda Murphy DO [address] [place] [address] PCP - General Internal Medicine 04/09/19 documented as of this encounter
--- OUTSIDE RECORDS SUMMARY | 2025-01-14 07:40 | XMS_ITS | Clinical Summary ---
Author Organization 175 [facility] Address 175 [place] [address] Phone Care Team Providers Care Pockets And Pieces Necktie Operator Name Role Phone Lvelian Linda Juanito RAMESH Primary Care Provider [phone] Allergies No known active allergies Medications acetaminophen [...] 1:45 PM EST Office Visit Orthopedic Surgery [facility] [address] [phone] Gutierrez Ruiz DPM Controlled type 2 diabetes [...] 9:15 AM EDT Office Visit Orthopedic Surgery [facility] [address] [phone] Gutierrez Ruiz DPM [address] [address] Health Maintenance Due Date Last Done Comments [...] patient's age to complete this topic Insurance [facility] Member Subscriber Plan / Payer (Ef fective 2013-Present) Name:Tisha Ruiz Relation to Subscriber:Self Name:Tisha Ruiz Payer ID:[id number] Group ID:[id number] Type:Not on file Address: [address] [facility] [place] [address] Care Teams Pockets And Pieces Necktie Operator Relationship Specialty Start Date End Date Linda Murphy DO [address] [place] [address] PCP - General Internal Medicine 04/09/19
--- OUTSIDE RECORDS SUMMARY | 2025-01-14 07:40 | XMS_ITS | Encounter Summary ---
Author Organization [employer] Address 75 [facility] 7t [place] [address] Care Team Providers Care Pit Clerk Name Role Phone Linda Murphy DO Primary Care Provider [phone] Neri Yang PharmD Unavailable Unavail able Antionette Murphy PharmD Unavailable Reason for Visit * Reason Onset Date Comments Results 10/08/2023 Encounter Details Date Type Department Care Team ([facility] st Contact Info) Description 10/08/2023 Telephone [facility] MEDICINE 230 [place] [address] Linda Murphy DO 230 [place], [place] [phone] Results Social History Tobacco Use Types Packs/Day [...] yesterday 10/07/2023 but [facility]. documented in this encounter Plan of Treatment Upcoming Encounters Date Type Department Care Team (Late st Contact Info) Description 01/19/2025 11:45 AM EDT Office Visit [facility] MEDICINE 230 [place] [address] Linda Murphy DO 230 [place] [address] documented as of this encounter Goals Goal [...] documented as of this encounter Care Teams Pit Clerk Relationship Specialty Start Date End Date Linda Murphy DO 230 [place] [address] PCP - General Family Medicine 11/24/12 Neri Yang, PharmD 230 [place] [address] Pharmacist Internal Medicine 11/23/22 10/17/23 Antionette Murphy, EricD [address] [place] [address] Pharmacist Internal Medicine 07/15/24 documented as of this encounter
--- OUTSIDE RECORDS SUMMARY | 2025-01-14 07:40 | XMS_ITS | Encounter Summary ---
Author Organization [employer] Address 75 [facility] 7t [place] [address] Care Team Providers Care Senior Revenue Accountant Name Role Phone Linda Murphy DO Primary Care Provider DelNeri zavala PharmD Unavailable Unavail able Antionette Murphy PharmD Unavailable [phone] Reason for Visit * Reason Onset Date Comments letter michael lopez 07/26/2023 Encounter Details Date Type Department Care Team (Late st Contact Info) Description 07/26/2023 Telephone [facility] MEDICINE 230 [place] [address] Linda Murphy DO 230 [place] [address] letter michael lopez Social History Tobacco Use [...] to Medical side. Please contact pt at [phone] documented in this encounter Plan of Treatment Upcoming Encounters Date Type Department Care Team (Late st Contact Info) Description 01/19/2025 11:45 AM EDT Office Visit [facility] MEDICINE [address] [place] [address] Linda Murphy DO 230 [place] [address] documented as of this encounter Goals Goal [...] documented as of this encounter Care Teams Senior Revenue Accountant Relationship Specialty Start Date End Date Linda Murphy DO 230 [place] [address] PCP - General Family Medicine 11/24/12 Neri Yang, PharmD [address] [place] [address] Pharmacist Internal Medicine 11/23/22 10/17/23 Antionette Murphy PharmD [address] [place] [address] Pharmacist Internal Medicine 07/15/24 documented as of this encounter
--- OUTSIDE RECORDS SUMMARY | 2025-01-14 07:40 | XMS_ITS | Encounter Summary ---
Author Organization [employer] Address [address] [place] [address] 7t [place] [address] Care Team Providers Care Binder Caser Name Role Phone Linda Murphy DO Primary Care Provider [phone] DelNeri zavala PharmD Unavailable Unavail able Antionette Murphy PharmD Unavailable Reason for Referral * Imaging (Routine) - Canceled Specialty Diagnoses / Procedures Referred By Rolf pascual Referred To Contact Radiology Diagnoses Hilar mass Procedures CT Chest w/o Contrast Nora Astudillo FNP 230 [place] [address] Phone: tel: fax: [address] Phone: tel: fax: Referral ID Status Reason Start Date Expiration Date V isits Requested Visits Authorized [id number] Canceled 10/11/2023 10/10/2024 1 1 Encounter Details Date Type Department Care Team (Late st Contact Info) Description 10/11/2023 Orders Only [facility] CH[facility] MED & PEDS [address] [place] [address] Nora Astudillo FNP 230 [place] [address] Hilar mass (Primary Dx) Social History Tobacco [...] AM EDT Office Visit [facility] MEDICINE [address] [place] [address] Linda Murphy DO 230 [place] [address] Scheduled Orders Name Type Priority Associated Diagnoses [...] documented as of this encounter Care Teams Binder Caser Relationship Specialty Start Date End Date Linda Mruphy DO 230 [place] [address] PCP - General Family Medicine 11/24/12 Neri Yang, PharmD 230 [place] [address] Pharmacist Internal Medicine 11/23/22 10/17/23 Antionette Murphy, Kaiden 230 [place] [address] Pharmacist Internal Medicine 07/15/24 documented as of this encounter
--- OUTSIDE RECORDS SUMMARY | 2025-01-14 07:40 | XMS_ITS | Encounter Summary ---
Author Organization [employer] Address [address] [facility] [address] 7t [place] [address] Care Team Providers Care Vocational Rehabilitation Technician Name Role Phone Linda Murphy DO Primary Care Provider [phone] DelNeri zavala PharmD Unavailable Unavail able Antionette Murphy PharmD Unavailable [phone] Reason for Visit * Reason Onset Date Comments Letter for School/Work 03/07/2023 Encounter Details Date Type Department Care Team ([facility] st Contact Info) Description 03/07/2023 Telephone [facility] MEDICINE 230 [place] [address] Linda Murphy DO 230 [place] [address] Letter for School/Work Social History Tobacco Use [...] mailed due to COVID Please contact at [phone] documented in this encounter Plan of Treatment Upcoming Encounters Date Type Department Care Team (Late st Contact Info) Description 01/19/2025 11:45 AM EDT Office Visit [facility] MEDICINE 230 [place] [address] Linda Murphy DO [address] [place] [address] documented as of this encounter Goals Goal [...] documented as of this encounter Care Teams Vocational Rehabilitation Technician Relationship Specialty Start Date End Date Linda Murphy DO 230 [place] [address] PCP - General Family Medicine 11/24/12 Neri Yang, PharmD [address] [place] [address] Pharmacist Internal Medicine 11/23/22 10/17/23 Antionette Murphy PharmD [address] [place] [address] Pharmacist Internal Medicine 07/15/24 documented as of this encounter
--- OUTSIDE RECORDS SUMMARY | 2025-01-14 07:41 | XMS_ITS | Encounter Summary ---
Author Organization [employer] Address [address] [facility] [address] 7t [place] [address] Care Team Providers Care Marine Architect Name Role Phone Linda Murphy DO Primary Care Provider [phone] Antionette Murphy PharmD Unavailable [phone] Reason for Visit * Reason Comments Med Refill Encounter Details Date Type Department Care Team (Late st Contact Info) Description 12/21/2024 Refill [facility] CH[facility] MED & PEDS [address] [place] [address] Linda Murphy DO 230 [facility] [place] [address] Chronic low back pain, unspecified back pain [...] Description 01/19/2025 11:45 AM EDT Office Visit [facility] MEDICINE [address] [place] [address] Lidna Murphy DO [address] [place] [address] documented as of this encounter Goals Goal [...] documented as of this encounter Care Teams Marine Architect Relationship Specialty Start Date End Date Linda Murphy DO [address] [place] [phone] PCP - General Family Medicine 11/24/12 Antionette Murphy PharmD [address] [place] [phone] Pharmacist Internal Medicine 07/15/24 documented as of this encounter
--- OUTSIDE RECORDS SUMMARY | 2025-01-14 07:41 | XMS_ITS | Encounter Summary ---
Author Organization [employer] Address [address] [facility]t [place] [address] Care Team Providers Care Sandfill Operator Surface Name Role Phone Joelle Murphyfer Primary Care Provider + [phone] Antionette Murphy PharmD Unavailable [phone] Encounter Details Date Type Department Care [...] 11:45 AM EDT Office Visit [facility] [address] [place], [place] [phone] Linda Murphy DO [address] [place], [place] [phone] documented as of this encounter Goals Goal [...] EST Narrative 01/06/2025 9:00 AM EST ? [facility] ?[address] ?[place] [address] ?XRay Report ? Signed ? Patient: Kiniel,Tisha ?MR#: [id number] ?? 61 ? : 1970 ?Acct:[id number] ? Age/Sex: 54 / F ?ADM Date: 01/05/25 ? Loc: HO.SSS ? Attending Dr: Mario Hoyt MD ? Ordering Physician: Rogelio Sales ?? Date of Service: 01/05/25 ?? Procedure(s): XR chest 1V ?? Accession Number(s): [id number] ? cc: Linda Murphy DO; Rogelio Sales [...] DD/ 1241 ? TD/TT: 01/05/25 1241 ? Bale Opener: ? Procedure Note Gonzalez, Image - 01/06/[address] [address] XRay Report Signed Patient: Asmita Ruiz#: [id number] 61 : 1970Acct:[id number] Age/Sex: 54 / FADM Date: 01/05/25 Loc: HO.SSS Attending Dr: Mario Hoyt MD Ordering Physician: Rogelio Sales Date of Service: 01/05/25 Procedure(s): XR chest 1V Accession Number(s): [id number] cc: Linda Murphy DO; Rogelio Sales EXAMINATION: [...] 01/06/25 0857 DD/ 1241 TD/TT: 01/05/25 1241 Bale Opener: [facility] External Provider IMG XR PROCEDURES Final Result * XR Chest 1 View (01/05/2025 11:45 AM EST) Anatomical Region Laterality Modality Chest Radiographic Orsaura ging 01/05/2025 11:4 5 AM EST Narrative 01/05/2025 11:56 AM EST ? [facility] ?[address] ?[place] [address] ?XRay Report ? Signed ? Patient: Sara,Tisha ?MR#: [id number] ?? 61 ? : 1970 ?Acct:[id number] ? Age/Sex: 54 / F ?ADM Date: 02/25/25 ? Loc: HO.SSS ? Attending Silva Hoyt MD ? Ordering Physician: Rogelio Sales ?? Date of Service: 01/05/25 ?? Procedure(s): XR chest 1V ?? Accession Number(s): [id number] ? cc: Linda Murphy DO; Rogelio Sales [...] DD/ 1145 ? TD/TT: 01/05/25 1145 ? Bale Opener: ? Procedure Note Donkatlynter, Image - 01/05/2025 [place] [address] XRay Report Signed Patient: Ayanna RuiznMR#: [id number] 61 : 1970Acct:[id number] Age/Sex: 54 / FADM Date: 01/05/25 Loc: .[facility] Attending Dr: Mario Hoyt MD Ordering Physician: Rogelio Sales Date of Service: 01/05/25 Procedure(s): XR chest 1V Accession Number(s): [id number] cc: Linda Murphy DO; Rogelio Sales EXAMINATION: [...] 01/05/25 1154 DD/ 1145 TD/TT: 01/05/25 1145 Bale Opener: [facility] External Provider IMG XR PROCEDURES Final Result * Gross and Microscopic Level 4 (01/05/2025 10:57 AM EST) 01/05/2025 10:5 7 AM EST 01/05/2025 11:19 AM EST Narrative [facility] - 01/07/2025 2:12 PM EST ----- ------- Name: Tisha Ruiz ? Age/Sex: 54/F ? : 1970 Unit#: [id number] ?? Attend Dr: Mario Hoyt MD ?Re01/05/25 ?Status: DEP SDC ? Location: HO.SSS ?Disch: ? ----- ------- SPEC : [id number] ?RECD: 01/05/25-1119 ? STATUS: ??SOUT ? REQ NUM: [id number] ? HILARY: 01/05/25-105 ? SUBM DR: Rogelio [...] ? Age/Sex: 54/F ? : 1970 Unit#: [id number] ?? Attend Dr: Mario Hoyt MD ?Re01/05/25 ?Status: DEP SDC ? Location: HO.SSS ?Disch: ? ----- ------- SPEC : [id number] ?RECD: 01/05/25-1119 ? STATUS: ??SOUT ? REQ NUM: [id number] ? HILARY: 01/05/25-1057 ? SUBM DR: Rogelio [...] Napsin A on A1. Copies To: ?? iLnda Murphy DO ?? [facility] ?? [address] ?? [place] [address] ?? [phone] ?? Mario Hoyt MD ?? [facility] ?? [address] ?? [place] ?? [phone] ?? [email or web address] ?? Rogelio Sales ?? [address] ?? [place] [address] ?? [phone] ?? [email or web address] ----- ------- Signed (signature on file) Anuradha Bateman 01/06/251717 ? ----- ------- ? END OF REPORT ? us Generic External Data Provider LAB CYTOLOGY ANDERSON VALENTINO Final Result [facility] [address] [facility] [place] [address] [phone] * CT Biopsy Lung Left (01/05/2025 10:18 AM EST) Anatomical Region Laterality Modality Computed Tomogra phy 01/05/2025 10:1 8 AM EST Narrative 01/06/2025 2:23 PM EST ? [facility] ?[address] ?[place] [address] ? CT Scan Report ? Signed ? Patient: Kiniel,Tisha ?MR#: [id number] ?? 61 ? : 1970 ?Acct:[id number] ? Age/Sex: 54 / F ?ADM Date: 01/05/25 ? Loc: HO.SSS ? Attending Dr: Mario Hoyt MD ? Ordering Physician: Mario Hoyt MD ?? Date of Service: 01/05/25 ?? Procedure(s): CT biopsy lung LT ?? Accession Number(s): [id number] ? cc: Linda Murphy DO; Mario Hoyt MD ? Report Number: ?? [id number]: Total DLP = ??490.00 mGy-cm ?? 54-year-old [...] DD/ 1018 ? TD/TT: 01/05/25 1119 ? Bale Opener: ? Procedure Note Gonzalez, Image - 01/06/[address] [place] [address] [address] Scan Report Signed Patient: Ayanna RuizCAR#: [id number] 61 : 1970Acct:[id number] Age/Sex: 54 / FADM Date: 01/05/25 Loc: HO.SSS Attending Dr: Mario Hoyt MD Ordering Physician: Mario Hoyt MD Date of Service: 01/05/25 Procedure(s): CT biopsy lung LT Accession Number(s): [id number] cc: Linda Murphy DO; Mario Hoyt MD Report Number: [id number]: Total DLP = 490.00 mGy-cm 54-year-old female [...] by: Bharathi Land MD 01/06/2025 02:20 PM [facility] Dictated By: Rogelio Sales Signed By: <Electronically signed by Rogelio Sales in OV> 01/06/25 1420 <Electronically signed by Bharathi Land MD in OV> 01/06/25 1423 DD/ 1018 TD/TT: 01/05/25 1119 Bale Opener: us [facility] External Provider IMG CT PROCEDURES Final Result * (ABNORMAL) Glucose, Whole Blood (01/05/2025 9:48 AM EST) Glucose, Whole Blood 149(H) 60 - 115 mg/dL [facility] Comment:METER #: [id number] 01/05/2025 9:48 AM EST 01/05/2025 9:53 AM EST Generic External Data Provider LAB BLOOD ORDERAB LES Final Result Performing Organization Address City/State/[facility] Co de Phone Number [facility] [address] [place] [address] [phone] documented in this encounter Visit Diagnoses Not on filedocumented in this encounter Additional Health Concerns Assessment Noted Time PHQ-9 Depression Total Score: 0 02/27/20 23 11:42 AM EDT documented as of this encounter Care Teams Sandfill Operator Surface Relationship Specialty Start Date End Date Linda Murphy DO [address] [place] [address] PCP - General Family Medicine 11/24/12 Antionette Murphy PharmD [address] [place] [address] Pharmacist Internal Medicine 07/15/24 documented as of this encounter
--- OUTSIDE RECORDS SUMMARY | 2025-01-14 07:41 | XMS_ITS | Encounter Summary ---
Author Organization [employer] Address [address] [facility] 7t [place] [address] Care Team Providers Care Aquatic Habitat Biologist Name Role Phone Linda Murphy DO Primary Care Provider [phone] Antionette Murphy PharmD Unavailable [phone] Reason for Visit * Reason Onset Date Comments Med Refill 12/18/2024 Encounter Details Date Type Department Care Team (Late st Contact Info) Description 12/18/2024 Refill [facility] MED[facility]INE [address] [place] [address] Linda Murphy DO [address] [place] [address] Social History Tobacco Use Types Packs/Day Years [...] Description 01/19/2025 11:45 AM EDT Office Visit [facility] [address] [place] [address] Linda Murphy DO [address] [place] [address] documented as of this encounter Goals Goal [...] documented as of this encounter Care Teams Aquatic Habitat Biologist Relationship Specialty Start Date End Date Linda Murphy DO [address] [place] [address] PCP - General Family Medicine 11/24/12 Antionette Murphy PharmD [address] [place] [address] Pharmacist Internal Medicine 07/15/24 documented as of this encounter
--- OUTSIDE RECORDS SUMMARY | 2025-01-14 07:41 | XMS_ITS | Encounter Summary ---
Author Organization [employer] Address [address] [facility] [address] 7t [place] [address] Care Team Providers Care Insert Cutter Name Role Phone Katherine Linda Primary Care Provider + [phone] Antionette Murphy PharmD Unavailable [phone] Reason for Visit * Reason Onset Date Comments Recommend MACHINE TECHNICIAN Tier 2 01/07/2025 Encounter Details Date Type Department Care Team ([facility] Contact Info) Description 01/07/2025 Telephone [facility] MEDICINE 230 [place] [address] No Lopez, KRYSTYNA Recommend MACHINE TECHNICIAN Tier 2 Social History Tobacco Use Types [...] RN - 01/07/2025 7:26 AM EST What MACHINE TECHNICIAN Tier would you like this patient to be? I recommend Tier 2, please let me know if you agree or would rather patient be in another MACHINE TECHNICIAN Tier. Tier 1 = HIGH RISK, Monthly MACHINE TECHNICIAN visits Tier 2 = MODerate RISK, Q3 Month visits Tier 3 = LOW RISK = Q4-6 month visits documented in this encounter Plan of Treatment Upcoming Encounters Date Type Department Care Team (Late st Contact Info) Description 01/19/2025 11:45 AM EDT Office Visit [facility] MEDICINE [address] [place] [address] Linda Murphy DO [address] [place] [address] documented as of this encounter Goals Goal [...] documented as of this encounter Care Teams Insert Cutter Relationship Specialty Start Date End Date Linda Murphy DO [address] [place] [address] PCP - General Family Medicine 11/24/12 Antionette Murphy, Kaiden [address] [place] [address] [place] [phone] Pharmacist Internal Medicine 07/15/24 documented as of this encounter
--- OUTSIDE RECORDS SUMMARY | 2025-01-14 07:41 | XMS_ITS | Encounter Summary ---
Author Organization [employer] Address [address] [facility] [address] 7t [place] [address] Care Team Providers Care Boatwright Name Role Phone Linda Murphy DO Primary Care Provider [phone] Antionette Murphy PharmD Unavailable [phone] Reason for Visit * Reason Onset Date Comments Med Refill 12/18/2024 Encounter Details Date Type Department Care Team (Late st Contact Info) Description 12/18/2024 Refill [facility] MED & PEDS [address] [place] [address] Linda Murphy DO [address] [facility] [place] [address] Acute post-traumatic headache, not intractable; Chronic obstructive [...] 11:45 AM EDT Office Visit [facility] MEDICINE [address] [place] [address] Linda Murphy DO [address] [place] [address] documented as of this encounter Goals Goal [...] documented as of this encounter Care Teams Boatwright Relationship Specialty Start Date End Date Linda Murphy DO [address] [place] [phone] PCP - General Family Medicine 11/24/12 Antionette Murphy PharmD [address] [place] [address] Pharmacist Internal Medicine 07/15/24 documented as of this encounter
--- OUTSIDE RECORDS SUMMARY | 2025-01-14 07:41 | XMS_ITS | Encounter Summary ---
Author Organization [employer] Address 75 [facility] 7t [place] [address] Care Team Providers Care Engine Lathe Operator Name Role Phone Linda Murphy DO Primary Care Provider [phone] Antionette Murphy PharmD Unavailable [phone] Reason for Visit * Reason Onset Date Comments Med Refill 12/18/2024 Encounter Details Date Type Department Care Team (Late st Contact Info) Description 12/18/2024 Refill [facility] MEDICINE [address] [place] [address] Linda Murphy DO [address] [place] [address] Type 2 diabetes mellitus without complication, without long-term current use of insulin ([facility]); Type 2 diabetes mellitus with other specified complication, unspecified whether long distance operator insulin use ([facility]/HCC); Chronic obstructive pulmonary disease, unspecified COPD type ([facility]) Social History Tobacco Use Types Packs/Day Years [...] the past 12 months, has t he [employer], gas, oil or water company threatened to [...] 01/19/2025 11:45 AM EDT Office Visit [facility] MEDICINE [address] [place] [address] Linda Murphy DO [address] [place] [address] documented as of this encounter Goals Goal Patient Goal Type Associated Problems Recent Progress Patient-Stated? Author Hemoglobin A1c < 7 Result Component 7.4(08/13/2024 3:26 PM EDT) No Neri Yang, PharmD documented as of this encounter Visit Diagnoses Diagnosis Type 2 diabetes mellitus without complication, without long-term current use of insulin ([facility]) Type 2 diabetes mellitus with other specified complication, unspecified whether nursing home insulin use ([facility]) Chronic obstructive pulmonary disease, unspecified COPD type ([facility]) documented in this encounter Additional Health Concerns Assessment Noted Time PHQ-9 Depression Total Score: 0 02/27/20 23 11:42 AM EDT documented as of this encounter Care Teams Engine Lathe Operator Relationship Specialty Start Date End Date Linda Murphy DO [address] [place] [address] PCP - General Family Medicine 11/24/12 Antionette Murphy, Kaiden [address] [place] [address] Pharmacist Internal Medicine 07/15/24 documented as of this encounter
--- OUTSIDE RECORDS SUMMARY | 2025-01-14 07:41 | XMS_ITS | Encounter Summary ---
Author Organization [employer] Address [address] [facility] [address] 7t [place] [address] Care Team Providers Care Clerk Television Production Name Role Phone Katherine Linda Primary Care Provider + [phone] Antionette Murphy PharmD Unavailable [phone] Reason for Visit * Reason Onset Date Comments NCNS for DIE HARDENER RV today 01/07/2025 Encounter Details Date Type Department Care Team (Late st Contact Info) Description 01/07/2025 Telephone [facility] MEDICINE [address] [place] [address] No Lopez, RN NCNS for DIE HARDENER RV today Social History Tobacco Use Types [...] 10:42 AM EST Pt was NCNS for DIE HARDENER RV appt today. Pt cancelled DIE HARDENER 12/29/24, 12/15/24 and 10/27/24. TC to patient, [...] Description 01/19/2025 11:45 AM EDT Office Visit [facility] MEDICINE [address] [place] [address] Linda Murphy DO [address] [place] [address] documented as of this encounter Goals Goal [...] documented as of this encounter Care Teams Clerk Television Production Relationship Specialty Start Date End Date Linda Murphy DO [address] [place] [address] PCP - General Family Medicine 11/24/12 Antionette Murphy PharmD [address] [place] [address] Pharmacist Internal Medicine 07/15/24 documented as of this encounter
--- OUTSIDE RECORDS SUMMARY | 2025-01-14 07:41 | XMS_ITS | Encounter Summary ---
Author Organization [employer] Address 75 [facility] 7t [place] [address] Care Team Providers Care Extracting Machine Operator Name Role Phone Linda Murphy DO Primary Care Provider [phone] Antionette Murphy PharmD Unavailable [phone] Reason for Visit * Reason Comments Med Refill Encounter Details Date Type Department Care Team ([facility] st Contact Info) Description 12/23/2024 Refill [facility] [address] [place] [address] Linda Murphy DO [address] [place] [address] Chronic GERD Social History Tobacco Use Types [...] Description 01/19/2025 11:45 AM EDT Office Visit [facility] MEDICINE [address] [place] [address] Linda Murphy DO [address] [place] [address] documented as of this encounter Goals Goal [...] documented as of this encounter Care Teams Extracting Machine Operator Relationship Specialty Start Date End Date Linda Murphy DO [address] [place] [address] PCP - General Family Medicine 11/24/12 Antionette Murphy PharmD [address] [place] [address] Pharmacist Internal Medicine 07/15/24 documented as of this encounter
--- OUTSIDE RECORDS SUMMARY | 2025-01-14 07:41 | XMS_ITS | Encounter Summary ---
Author Organization [employer] Address [address] [facility] [address] 7t [place] [address] Care Team Providers Care Community Support Specialist Name Role Phone Linda Murphy DO Primary Care Provider + [phone] Antionette Murphy PharmD Unavailable [phone] Encounter Details Date Type Department Care [...] Description 01/19/2025 11:45 AM EDT Office Visit [facility] MEDICINE 230 [place] [address] Linda Murphy DO [address] [place], [place] [phone] documented as of this encounter Goals Goal [...] Whole Blood 178(H) 60 - 115 mg/dL [facility] Comment:METER #: [id number] 12/15/2024 9:37 AM EST 12/15/2024 9:41 AM EST us Generic External Data Provider LAB BLOOD ORDERAB LES Final Result [facility] [address] [place] [phone] * (ABNORMAL) Partial Thromboplastin Time, Activated (APTT) (12/15/2024 9:21 AM EST) Partial Thromboplastin Time 40.1(H) 26.0 - 36.8 SEC [facility] Comment:For information rega rding the monitoring of direct thrombininhibitors, please refer to Pharmacy. 12/15/2024 9:21 AM EST 12/15/2024 9:24 AM EST Generic External Data Provider LAB BLOOD ORDERAB LES Final Result Performing Organization Address [facility] Co de Phone Number [facility] [address] [place] [phone] * (ABNORMAL) Prothrombin Time-INR (12/15/2024 9:21 AM EST) Prothrombin Time 9.9(L) 10.9 - 12.4 SEC [facility] INTERNATIONAL NORM RATIO 0.9 0.9 - 1.1 [facility] Comment:INTERNATIONAL NORMAL IZED RATIO (INR) [...] 9:21 AM EST 12/15/2024 9:24 AM EST [employer] External Data Provider LAB BLOOD ORDERAB LES Final Result Performing Organization Address [facility] Co de Phone Number [facility] [address] [place] [phone] documented in this encounter Visit Diagnoses Not on filedocumented in this encounter Additional Health Concerns Assessment Noted Time PHQ-9 Depression Total Score: 0 02/27/20 23 11:42 AM EDT documented as of this encounter Care Teams Community Support Specialist Relationship Specialty Start Date End Date Linda Murphy DO [address] [place] [address] PCP - General Family Medicine 11/24/12 Antionette Murphy PharmD [address] [place] [address] Pharmacist Internal Medicine 07/15/24 documented as of this encounter
--- OUTSIDE RECORDS SUMMARY | 2025-01-14 07:41 | XMS_ITS | Encounter Summary ---
Author Organization [employer] Address [address] [facility] [address] 7t [place] [address] Care Team Providers Care Sectional Belt Mold Assembler Name Role Phone Katherine Linda Primary Care Provider [phone] Antionette Murphy PharmD Unavailable [phone] Reason for Visit * Reason Onset Date Comments NCNS PEDICURIST RV today 01/12/2025 Encounter Details Date Type Department Care Team (Late st Contact Info) Description 01/12/2025 Telephone [facility] MEDICINE [address] [place] [address] No Lopez RN NCNS PEDICURIST RV today Social History Tobacco Use Types [...] 11:14 AM EST Pt was NCNS for PEDICURIST RV today. Previous to today: 01/07/25 - Pt NCNS PEDICURIST RV 12/29/24 - Pt cancelled PEDICURIST RV 12/15/24 - Pt cancelled PEDICURIST RV 10/27/24 - Pt cancelled PEDICURIST RV TC to patient, no answer. L/M asking her to call back to reschedule appt. Will update PCP on missed appts documented in this encounter Plan of Treatment Upcoming Encounters Date Type Department Care Team (Late st Contact Info) Description 01/19/2025 11:45 AM EDT Office Visit [facility] MEDICINE [address] [place] [address] Linda Murphy DO [address] [place] [address] documented as of this encounter Goals Goal [...] documented as of this encounter Care Teams Sectional Belt Mold Assembler Relationship Specialty Start Date End Date Linda Murphy DO [address] [place] [address] PCP - General Family Medicine 11/24/12 Antionette Murphy, Kaiden [address] [place] [address] Pharmacist Internal Medicine 07/15/24 documented as of this encounter
--- NOTE | 2025-01-14 07:55 | PFT_ITS ---
Indication: Lung nodule Spirometry [FEV1 to FVC 77%; FEV1 2.1 L; FVC 2.73 L. No significant response to bronchodilators noted.] Lung Volumes [Total lung capacity 71% predicted; residual volume 82% predicted; expiratory reserve volume 54% predicted] Diffusion Capacity [DLCO 70% predicted; DLCO VA 96% predicted] Comparisons [none] Interpretation [No obstructive ventilatory defects. No significant response to bronchodilators noted. The patient does have a restrictive ventilatory defect consistent with mild restrictive lung disease. In addition to that the patient has a mild diffusion impairment although it does correct to normal when correcting for the alveolar volume. Clinical correlation warranted.] MTDD
== END 2025-01-14 07:37 | disposition home or self-care (01) ==
LOC: HO.RESP 07:36
PROVIDERS: PCP Family Medicine; Visit Provider Surgery
DX: R91.8 Other nonspecific abnormal finding of lung field (principal)
CPT/HCPCS: 94010; 94640; 94727; 94729

== ENCOUNTER → 2025-01-14 07:55 | Outpatient (BNV) | payer OTHER, SELFPAY | PROVIDERS: PCP Family Medicine; Visit Provider Hospitalist | DX: R91.1 Solitary pulmonary nodule (principal) | CPT/HCPCS: 94060; 94727; 94729 ==

== ENCOUNTER 2025-01-20 11:14 | Outpatient (REF) | payer OTHER, SELFPAY ==
--- NOTE | ~2025-01-20 | XR_ITS ---
EXAMINATION: XR CHEST 2 VIEWS HISTORY: cough x 2 weeks COMPARISON: Comparison is made with the prior examination dated 01/05/2025. FINDINGS: PA and lateral views of the chest are submitted. The lungs are expanded and clear. There is no pleural effusion, pneumothorax, or pulmonary vascular congestion. The heart is normal in size. The bones are intact. XR/XR chest 2V IMPRESSION: No acute cardiopulmonary abnormality. Electronically signed by: Dillon Botello MD 01/20/2025 11:48 AM EDT
[2025-01-20 11:29] LABS: MANUAL DIFF FLAG NO
[2025-01-20 11:46] LABS: Basophils Absolute Auto 0.1 X10*3/uL (0.0-0.2); Basophils Percent Auto 0.4 % (0-2); Eosinophils Absolute Auto 0.2 X10*3/uL (0.0-0.4); Eosinophils Percent Auto 1.4 % (0-4); Hematocrit 41.2 % (37.0-47.0); Hemoglobin 13.6 g/dl (12.0-16.0); Imm Gran Abs Auto 0.08 X10*3/uL (0.00-0.03); Imm Gran Pct Auto 0.6 % (0.0-0.4); Lymphocytes Absolute Auto 3.9 X10*3/uL (1.2-4.9); Lymphocytes Percent Auto 29.6 % (20-40); Mean Corpuscular Hemoglobin 28.1 pg (27.0-33.0); Mean Corpuscular Volume 85.1 fL (80.0-98.0); Mean Platelet Volume 9.4 fL (9.4-12.3); Monocytes Absolute Auto 0.8 X10*3/uL (0.1-1.2); Neutrophils Absolute Auto 8.2 x10*3/uL (2.0-8.3); Platelet Count 329 X10*3/uL (160-400); Red Blood Count 4.84 X10*6/uL (4.20-5.50); Red Cell Distribution Width 13.7 % (11.0-16.0); White Blood Count 13.2 X10*3/uL (4.8-10.8)
[2025-01-20 11:50] LABS: Estimated Average Glucose 177 mg/dL; Hemoglobin A1C 220.3004 umol/L; Hemoglobin A1c % 7.8 % (<6.0); Total Hemoglobin (HGBA1C) 3566.0083 umol/L
[2025-01-20 11:59] LABS: INTERNATIONAL NORM RATIO 0.9 (0.9-1.1); Prothrombin Time 10.1 SEC (10.9-12.4)
[2025-01-20 12:01] LABS: Partial Thromboplastin Time 44.2 SEC (26.0-36.8)
[2025-01-20 12:40] LABS: Anion Gap 11 (12-20); Blood Urea Nitrogen 7 mg/dL (9-16); Calcium 9.2 mg/dL (8.4-10.2); Carbon Dioxide 31 mmol/L (22-29); Chloride 103 mmol/L (96-108); Estimated Glomerular Filt Rate 54; Glucose Random 109 mg/dL (60-115); Sodium 141 mmol/L (135-145)
--- OUTSIDE RECORDS SUMMARY | 2025-01-20 13:16 | XMS_ITS | Encounter Summary ---
Author Organization [employer] Address 75 [facility] 7t [place] [address] Care Team Providers Care Pottery Striper Name Role Phone Linda Murphy DO Primary Care Provider [phone] Antionette Murphy PharmD Unavailable [phone] Reason for Visit * Reason Comments Med Refill Encounter Details Date Type Department Care Team ([facility] st Contact Info) Description 07/03/2024 Refill [facility] 230 [place] [address] Linda Murphy DO 230 [place] [address] Tobacco dependence Social History Tobacco Use Types [...] Description 01/27/2025 11:15 AM EDT Office Visit [address] [address] Linda Murphy DO [address] [place] [address] 02/09/2025 1:00 PM EDT Clinical Support [address] [address] No Lopez RN documented as of this encounter Goals Goal Patient Goal Type Associated Problems Recent Progress Patient-Stated? Author Hemoglobin A1c < 7 Result Component 7.8(01/20/2025 11:26 AM EDT) No Neri Yang, PharmD documented as of this encounter Visit Diagnoses Diagnosis Tobacco dependence Tobacco use disorder documented in this encounter Additional Health Concerns Assessment Noted Time PHQ-9 Depression Total Score: 0 02/27/20 23 11:42 AM EDT documented as of this encounter Care Teams Pottery Striper Relationship Specialty Start Date End Date Linda Murphy DO [address] [place] [address] PCP - General Family Medicine 11/24/12 Antionette Murphy PharmD [address] [place] [address] [phone] Pharmacist Internal Medicine 07/15/24 documented as of this encounter
--- OUTSIDE RECORDS SUMMARY | 2025-01-20 13:16 | XMS_ITS | Encounter Summary ---
Author Organization [employer] [facility] Address 75 [facility] 7t [place] [address] Care Team Providers Care Geoscientist Name Role Phone Linda Murphy DO Primary Care Provider [phone] Dellogono Neri PharmD Unavailable Unavail able Antionette Murphy PharmD Unavailable Reason for Visit * Reason Comments Med Refill Encounter Details Date Type Department Care Team (Late st Contact Info) Description 04/05/2023 Refill [facility] 230 [place] [address] Linda Murphy DO 230 [place] [address] Social History Tobacco Use Types Packs/Day Years [...] Description 01/27/2025 11:15 AM EDT Office Visit [facility] [place] [address] Linda Murphy DO [facility] [place] [address] 02/09/2025 1:00 PM EDT Clinical Support [facility] [place] [address] No Lopez, RN documented as of this [...] documented as of this encounter Care Teams Geoscientist Relationship Specialty Start Date End Date Linda Murphy DO [facility] [place] [address] PCP - General Family Medicine 11/24/12 Neri Yang, PharmD [address] [place] [address] Pharmacist Internal Medicine 11/23/22 10/17/23 Antionette Murphy, EricD [address] [place] [address] Pharmacist Internal Medicine 07/15/24 documented as of this encounter
--- OUTSIDE RECORDS SUMMARY | 2025-01-20 13:16 | XMS_ITS | Clinical Summary ---
Author Organization 175 [facility] Address 175 [place] [address] Phone Care Team Providers Care Cylindrical Mixer Name Role Phone Lvelian Linda Juanito RAMESH Primary Care Provider [phone]- [phone] Allergies No known active allergies Medications acetaminophen [...] 1:45 PM EST Office Visit [facility] [address] [phone] Gutierrez Ruiz DPM Controlled type 2 diabetes [...] 9:15 AM EDT Office Visit [facility] [address] [id number] Gutierrez Ruiz DPM [address] [address] Health Maintenance Due Date Last Done Comments [...] patient's age to complete this topic Insurance [facility] Member Subscriber Plan / Payer (Ef fective 2013-Present) Name:Tisha Ruiz Relation to Subscriber:Self Name:Tisha Ruiz Payer ID:[id number] Group ID:[id number] Type:Not on file Address: [facility] [place] [address] Care Teams Cylindrical Mixer Relationship Specialty Start Date End Date Linda Murphy DO [address] [place] [address] PCP - General Internal Medicine 04/09/19
--- OUTSIDE RECORDS SUMMARY | 2025-01-20 13:16 | XMS_ITS | Encounter Summary ---
Author Organization [employer] Address 75 [facility] 7t [place] [address] Care Team Providers Care Decorative Cutting Machine Tender Name Role Phone Linda Murphy DO Primary Care Provider [phone] Dellogono Neri PharmD Unavailable Unavail able Antionette Murphy PharmD Unavailable [phone] Reason for Visit * Reason Comments Med Refill Encounter Details Date Type Department Care Team (Late Contact Info) Description 04/10/2023 Refill [facility] MED & PEDS [address] [place] [address] Linda Murphy DO 230 [facility] [place] [address] Social History Tobacco Use Types Packs/Day Years [...] 11:15 AM EDT Office Visit [facility] [place] [address] [place] [address] 02/09/2025 1:00 PM EDT Clinical Support [facility] [place] [address] No Lopez, KRYSTYNA documented as of this [...] documented as of this encounter Care Teams Decorative Cutting Machine Tender Relationship Specialty Start Date End Date Linda [place] [address] PCP - General Family Medicine 11/24/12 Neri Yang, PharmD [facility] [place] [address] Pharmacist Internal Medicine 11/23/22 10/17/23 Antionette Murphy PharmD [facility] [place] [address] Pharmacist Internal Medicine 07/15/24 documented as of this encounter
--- OUTSIDE RECORDS SUMMARY | 2025-01-20 13:16 | XMS_ITS | Encounter Summary ---
Author Organization [employer] Address [address] [place] [address] 7t [place] [address] Care Team Providers Care Negotiator Sales Name Role Phone Linda Murphy DO Primary Care Provider [phone] DelNeri zavala PharmD Unavailable Unavail able Antionette Murphy PharmD Unavailable Reason for Referral * Imaging (Routine) - Canceled Specialty Diagnoses / Procedures Referred By Rolf pascual Referred To Contact Radiology Diagnoses Hilar mass Procedures CT Chest w/o Contrast Nora Astudillo FNP 230 [place] [address] Phone: tel: fax: [address] Phone: tel: fax: Referral ID Status Reason Start Date Expiration Date V isits Requested Visits Authorized [id number] Canceled 10/11/2023 10/10/2024 1 1 Encounter Details Date Type Department Care Team (Late st Contact Info) Description 10/11/2023 Orders Only [facility] CHC MED & PEDS [address] [place] [address] Nora Astudillo FNP 230 [place] [address] Hilar mass (Primary Dx) Social History Tobacco [...] Description 01/27/2025 11:15 AM EDT Office Visit [facility] MEDICINE [address] [place] [address] Linda Murphy DO [address] [place] [address] 02/09/2025 1:00 PM EDT Clinical Support [facility] [address] [place] [address] No Lopez RN Scheduled Orders Name Type [...] documented as of this encounter Care Teams Negotiator Sales Relationship Specialty Start Date End Date Linda Murphy DO 230 [place] [address] PCP - General Family Medicine 11/24/12 Neri Yang, PharmD 230 [place] [address] Pharmacist Internal Medicine 11/23/22 10/17/23 Antionette Murphy PharmD 230 [place] [address] Pharmacist Internal Medicine 07/15/24 documented as of this encounter
--- OUTSIDE RECORDS SUMMARY | 2025-01-20 13:16 | XMS_ITS | Encounter Summary ---
Author Organization [employer] Address [address] [facility] [address] 7t [place] [address] Care Team Providers Care Reordering Clerk Name Role Phone Linda Murphy DO Primary Care Provider DelNeri zavala PharmD Unavailable Unavail able Antionette Murphy PharmD Unavailable [phone] Reason for Visit * Reason Onset Date Comments Letter for School/Work 03/07/2023 Encounter Details Date Type Department Care Team ([facility] st Contact Info) Description 03/07/2023 Telephone [facility] MED[facility] 230 [place] [address] Linda Murphy DO 230 [place] [address] Letter for School/Work Social History Tobacco Use [...] mailed due to COVID Please contact at [phone] documented in this encounter Plan of Treatment Upcoming Encounters Date Type Department Care Team (Late st Contact Info) Description 01/27/2025 11:15 AM EDT Office Visit [address] [address] Linda Murphy DO [address] [place] [address] 02/09/2025 1:00 PM EDT Clinical Support [address] [address] No Lopez, KRYSTYNA documented as of this [...] documented as of this encounter Care Teams Reordering Clerk Relationship Specialty Start Date End Date Linda Murphy DO [address] [place] [address] PCP - General Family Medicine 11/24/12 Neri Yang, EricD [address] [place] [address] Pharmacist Internal Medicine 11/23/22 10/17/23 Antionette Murphy PharmD [address] [place] [address] Pharmacist Internal Medicine 07/15/24 documented as of this encounter
--- OUTSIDE RECORDS SUMMARY | 2025-01-20 13:16 | XMS_ITS | Encounter Summary ---
Author Organization [employer] Address [address] [facility] [address] 7t [place] [address] Care Team Providers Care Dry Starch Operator Name Role Phone Linda Murphy DO Primary Care Provider [phone] Antionette Murphy PharmD Unavailable [phone] Reason for Visit * Reason Onset Date Comments Medication Question 11/13/2023 Encounter Details Date Type Department Care Team ([facility] st Contact Info) Description 11/13/2023 Telephone [facility] MEDICINE 230 [place] [address] Linda Murphy DO 230 [place] [address] Medication Question Social History Tobacco Use Types [...] 11/08 Physical appointment. Please contact pt at [phone] documented in this encounter Plan of Treatment Upcoming Encounters Date Type Department Care Team (Late st Contact Info) Description 01/27/2025 11:15 AM EDT Office Visit [address] [address] Linda Murphy DO [address] [place] [address] 02/09/2025 1:00 PM EDT Clinical Support [facility] MEDICINE [address] [place] [address] No Lopez, KRYSTYNA documented as of this [...] documented as of this encounter Care Teams Dry Starch Operator Relationship Specialty Start Date End Date Linda Murphy DO 230 [place], [place] [phone] PCP - General Family Medicine 11/24/12 Antionette Murphy PharmD 230 [place] [address] Pharmacist Internal Medicine 07/15/24 documented as of this encounter
--- OUTSIDE RECORDS SUMMARY | 2025-01-20 13:17 | XMS_ITS | Encounter Summary ---
Author Organization [employer] Address [address] [facility] [address] 7t [place] [address] Care Team Providers Care Tacker Off Name Role Phone Linda Murphy DO Primary Care Provider [phone] Antionette Murphy PharmD Unavailable [phone] Reason for Visit * Reason Onset Date Comments Med Refill 01/18/2025 Encounter Details Date Type Department Care Team (Late st Contact Info) Description 01/18/2025 Refill [facility] CHC MED & PEDS [address] [place] [address] Linda Murphy DO 230 [facility] [place] [address] Chronic low back pain, unspecified back pain [...] 11:15 AM EDT Office Visit [facility] MEDICINE 230 [place], [place] [phone] Linda Murphy DO 230 [place], [place] [phone] 02/09/2025 1:00 PM EDT Clinical Support [facility] MEDICINE 230 [place] [address] Saumya Lopez, KRYSTYNA documented as of this [...] documented as of this encounter Care Teams Tacker Off Relationship Specialty Start Date End Date Linda Murphy DO [address] [place] [address] PCP - General Family Medicine 11/24/12 Antionette Murphy PharmD [address] [place] [address] Pharmacist Internal Medicine 07/15/24 documented as of this encounter
--- OUTSIDE RECORDS SUMMARY | 2025-01-20 13:17 | XMS_ITS | Encounter Summary ---
Author Organization [employer] Address 75 [facility] 7t [place] [address] Care Team Providers Care Tire Mold Engraver Name Role Phone Linda Murphy DO Primary Care Provider [phone] Antionette Mruphy PharmD Unavailable [phone] Reason for Visit * Reason Onset Date Comments Med Refill 12/18/2024 Encounter Details Date Type Department Care Team (Late st Contact Info) Description 12/18/2024 Refill [facility] 230 [place] [address] Linda Murphy DO 230 [place] [address] Type 2 diabetes mellitus without complication, without long-term current use of insulin ([facility]); Type 2 diabetes mellitus with other specified complication, unspecified whether detention insulin use ([facility]/HCC); Chronic obstructive pulmonary disease, unspecified COPD type ([facility]) Social History Tobacco Use Types [...] the past 12 months, has t he [employer] gas, oil or water [employer] threatened to shut off services in your [...] Description 01/27/2025 11:15 AM EDT Office Visit [address] [address] Linda Murphy DO [address] [place] [address] 02/09/2025 1:00 PM EDT Clinical Support [address] [address] No Lopez, KRYSTYNA documented as of this encounter Goals Goal Patient Goal Type Associated Problems Recent Progress Patient-Stated? Author Hemoglobin A1c < 7 Result Component 7.8(01/20/2025 11:26 AM EDT) No Neri Yang PharmD documented as of this encounter Visit Diagnoses Diagnosis Type 2 diabetes mellitus without complication, without long-term current use of insulin ([facility]) Type 2 diabetes mellitus with other specified complication, unspecified whether detention insulin use ([facility]) Chronic obstructive pulmonary disease, unspecified COPD type ([facility]) documented in this encounter Additional Health Concerns Assessment Noted Time PHQ-9 Depression Total Score: 0 04/18/20 23 11:42 AM EDT documented as of this encounter Care Teams Tire Mold Engraver Relationship Specialty Start Date End Date Linda Murphy DO [address] [place] [address] PCP - General Family Medicine 11/24/12 Antionette Murphy PharmD 230 [place] [address] Pharmacist Internal Medicine 07/15/24 documented as of this encounter
--- OUTSIDE RECORDS SUMMARY | 2025-01-20 13:17 | XMS_ITS | Encounter Summary ---
Author Organization [employer] Address [address] [facility] [address] 7t [place] [address] Care Team Providers Care Sawmill Or Timber Yard Worker Name Role Phone Linda Murphy DO Primary Care Provider [phone] Antionette Murphy PharmD Unavailable [phone] Reason for Visit * Reason Comments Med Refill Encounter Details Date Type Department Care Team (Late st Contact Info) Description 12/21/2024 Refill [facility] CH[facility] MED & PEDS [address] [place] [address] Linda Murphy DO 230 [facility] [place] [address] Chronic low back pain, unspecified back pain [...] Description 01/27/2025 11:15 AM EDT Office Visit [facility] [address] [place] [address] Linda Murphy DO [address] [place] [address] 02/09/2025 1:00 PM EDT Clinical Support [address] [address] No Lopez, RN documented as of this [...] documented as of this encounter Care Teams Sawmill Or Timber Yard Worker Relationship Specialty Start Date End Date Linda Murphy DO [address] [place] [address] PCP - General Family Medicine 11/24/12 Antionette Murphy, PharmD 230 [place] [address] Pharmacist Internal Medicine 07/15/24 documented as of this encounter
--- OUTSIDE RECORDS SUMMARY | 2025-01-20 13:17 | XMS_ITS | Encounter Summary ---
Author Organization [employer] Address 75 [facility] 7t [place] [address] Care Team Providers Care Roll Bucker Name Role Phone Linda Murphy DO Primary Care Provider [phone] Antionette Murphy PharmD Unavailable [phone] Reason for Visit * Reason Comments Med Refill Encounter Details Date Type Department Care Team ([facility] st Contact Info) Description 12/23/2024 Refill [facility] 230 [place] [address] Linda Murphy DO 230 [place] [address] Chronic GERD Social History Tobacco Use Types [...] Description 01/27/2025 11:15 AM EDT Office Visit [address] [address] Linda Murphy DO [address] [place] [address] 02/09/2025 1:00 PM EDT Clinical Support [address] [address] No Lopez, KRYSTYNA documented as of this [...] documented as of this encounter Care Teams Roll Bucker Relationship Specialty Start Date End Date Linda Murphy DO [address] [place] [address] PCP - General Family Medicine 11/24/12 Antionette Murphy PharmD [address] [place] [address] Pharmacist Internal Medicine 07/15/24 documented as of this encounter
--- OUTSIDE RECORDS SUMMARY | 2025-01-20 13:17 | XMS_ITS | Encounter Summary ---
Author Organization [employer] Address 75 [facility] 7t [place] [address] Care Team Providers Care Technical Specialist Cytology Name Role Phone Linda Murphy DO Primary Care Provider DelNeri zavala PharmD Unavailable Unavail able Antionette Murphy PharmD Unavailable [phone] Reason for Visit * Reason Onset Date Comments letter michael lopez 07/26/2023 Encounter Details Date Type Department Care Team (Late st Contact Info) Description 07/26/2023 Telephone [facility] 230 [place] [address] Linda Murphy DO 230 [place] [address] letter michael lopez Social History Tobacco Use [...] to Medical side. Please contact pt at [phone] documented in this encounter Plan of Treatment Upcoming Encounters Date Type Department Care Team (Late st Contact Info) Description 01/27/2025 11:15 AM EDT Office Visit [address] [address] Linda Murphy DO 230 [place] [address] 02/09/2025 1:00 PM EDT Clinical Support [address] [address] No Lopez, RN documented as of this [...] documented as of this encounter Care Teams Technical Specialist Cytology Relationship Specialty Start Date End Date Linda Murphy DO [address] [place] [address] PCP - General Family Medicine 11/24/12 Neri Yang, PharmD [address] [place] [address] Pharmacist Internal Medicine 11/23/22 10/17/23 Antionette Murphy PharmD [address] [place] [address] Pharmacist Internal Medicine 07/15/24 documented as of this encounter
--- OUTSIDE RECORDS SUMMARY | 2025-01-20 13:17 | XMS_ITS | Encounter Summary ---
Author Organization [employer] Address 75 [facility] 7t [place] [address] Care Team Providers Care Auto Mechanics Instructor Name Role Phone Linda Murphy DO Primary Care Provider [phone] Antionette Murphy PharmD Unavailable [phone] Reason for Visit * Reason Onset Date Comments Med Refill 12/18/2024 Encounter Details Date Type Department Care Team (Late st Contact Info) Description 12/18/2024 Refill [facility] MEDICINE 230 [place] [address] Linda Murphy DO 230 [place] [address] Social History Tobacco Use Types Packs/Day Years [...] Description 01/27/2025 11:15 AM EDT Office Visit [address] [address] Linda Murphy DO [address] [place] [address] 02/09/2025 1:00 PM EDT Clinical Support [address] [address] No Lopez, KRYSTYNA documented as of this [...] documented as of this encounter Care Teams Auto Mechanics Instructor Relationship Specialty Start Date End Date Linda Murphy DO [address] [place] [address] PCP - General Family Medicine 11/24/12 Antionette Murphy PharmD [address] [place] [address] [phone] Pharmacist Internal Medicine 07/15/24 documented as of this encounter
--- OUTSIDE RECORDS SUMMARY | 2025-01-20 13:17 | XMS_ITS | Encounter Summary ---
Author Organization [employer] Address [address] [facility] [address] 7t [place] [address] Care Team Providers Care Manager Java Name Role Phone Linda Murphy DO Primary Care Provider Dellogla Neri PharmD Unavailable Unavail able Antionette Murphy PharmD Unavailable Reason for Visit * Reason Onset Date Comments triage 11/14/2022 Encounter Details Date Type Department Care Team (Late st Contact Info) Description 11/14/2022 Telephone [facility] MEDICINE 230 [place] [address] Linda Murphy DO 230 [place], [place] [phone] triage Social History Tobacco Use Types Packs/Day [...] EST Triage call Pt reports seen in [facility] ED today. Pt reports bruising on bilateral [...] Description 01/27/2025 11:15 AM EDT Office Visit [address] [address] Linda Murphy DO [address] [place] [address] 02/09/2025 1:00 PM EDT Clinical Support [address] [address] No Lopez RN documented as of this encounter Visit Diagnoses Not on filedocumented in this encounter Care Teams Manager Java Relationship Specialty Start Date End Date Linda Murphy DO [address] [place] [address] PCP - General Family Medicine 11/24/12 Neri Yang PharmD [address] [place] [address] Pharmacist Internal Medicine 11/23/22 10/17/23 Antionette Murphy, EricD 230 [place] [address] Pharmacist Internal Medicine 07/15/24 documented as of this encounter
--- OUTSIDE RECORDS SUMMARY | 2025-01-20 13:17 | XMS_ITS | Encounter Summary ---
Author Organization [employer] Address [address] [facility] [address] [place] [address] Care Team Providers Care Florist'S Decorator Name Role Phone Linda Murphy DO Primary Care Provider [phone] Antionette Murphy PharmD Unavailable [phone] Reason for Visit * Reason Onset Date Comments Med Refill 12/18/2024 Encounter Details Date Type Department Care Team (Late st Contact Info) Description 12/18/2024 Refill [facility] [address] [place] [address] Linda Murphy DO [address] [facility] [place] [address] Acute post-traumatic headache, not intractable; Chronic obstructive [...] 01/27/2025 11:15 AM EDT Office Visit [address] [address] Linda Murphy DO [address] [place] [id number] 02/09/2025 1:00 PM EDT Clinical Support [address] [address] No Lopez, KRYSTYNA documented as of this [...] documented as of this encounter Care Teams Florist'S Decorator Relationship Specialty Start Date End Date Linda Murphy DO [address] [place] [id number] PCP - General Family Medicine 11/24/12 Antionette Murphy, EricD [address] [place] [id number] Pharmacist Internal Medicine 07/15/24 documented as of this encounter
--- OUTSIDE RECORDS SUMMARY | 2025-01-20 13:17 | XMS_ITS | Clinical Summary ---
Author Organization [employer] Address [address] [facility] [address] [place] [address] Care Team Providers Care Theoretical Physics Teacher Name Role Phone Linda Murphy DO Primary Care Provider PuAntionette ellison PharmD Unavailable [phone] Allergies Active Allergy Reactions Criticality Noted [...] use of insulin ([facility]) Inject 1 each under the skin 2 [...] use of insulin ([facility]) USE EVERY DAY UP TO TWICE DAILY 100 each 08/12/20 24 Active glucose blood (FREESTYLE LITE) test stripIndicatio ns:Type 2 diabetes mellitus without complication, without long-term current use of insulin ([facility]) Use to check blood sugar up to twice daily 100 each 08/12/20 24 Active TRUEplus Lancets 33G miscIndication s:Type 2 diabetes mellitus without complication, without long-term current use of insulin ([facility]) Use to check blood sugar up to twice daily 100 each 08/12/20 24 Active semaglutide (Rybelsus) 7 MG tablet TAKE 1 TABLET EVERY MORNING, 30 MINUTES BEFORE A MEAL ICD10= 30 tablet 5 08/26/20 24 Active Aspirin Low Dose 81 MG EC tabletIndicati ons:Type 2 diabetes mellitus with other specified complication, unspecified whether fci insulin use ([facility]) TAKE 1 TABLET BY MOUTH EVERY EVENING 90 tablet 1 09/02/20 24 Active metFORMIN XR (Glucophage-XR ) 500 MG 24 hr tabletIndicati ons:Type 2 diabetes mellitus without complication, without long-term current use of insulin ([facility]) TAKE 2 TABLETS BY MOUTH TWICE DAILY [...] instrumentation of the toenail - refer to library manager - TB UTD Plantar callus 08/26/2024 Assessment [...] -f/u with pain mgmt prn -advised contact [facility] if sx change or worsen Leukocytosis [...] BS monitoring -re-referred to [facility] pharmacist for eval -cont statin and low-dose [...] Team Description 01/19/2025 11:45 AM EDT Telemedicine [facility] [address] [place] [address] Linda Murphy DO Chest congestion (Primary Dx); Preop examination 01/19/[address] [facility] [address] [place] [address] Linda Murphy DO 01/19/2025 Travel 01/18/2025 Refill [facility] [address] [place] [address] Linda Murphy DO Chronic low back pain, unspecified back pain laterality, unspecified whether sciatica present 01/12/[address] [address] No Lopez, KRYSTYNA NCNS ADDRESS CHANGE CLERK RV today 01/07/[address] [address] No Lopez, RN NCNS for ADDRESS CHANGE CLERK RV today 01/07/[address] [address] No Lopez, RN Recommend ADDRESS CHANGE CLERK Tier 2 01/05/2025 Orders Only GENERIC EXTERNAL DATA DEPARTMENT Provider, Generic External Data 12/23/2024 Refill [facility] [address] [place] [phone] Linda Murphy DO Chronic GERD 12/21/2024 Refill [facility] [address] [place] [address] Linda Murphy DO Chronic low back pain, unspecified back pain laterality, unspecified whether sciatica present 12/18/2024 Refill [facility] [address] [place] [address] Linda Murphy DO 12/18/2024 Refill [facility] [address] [place] [address] Linda Murphy DO Acute post-traumatic headache, not intractable; Chronic obstructive pulmonary disease, unspecified COPD type ([facility]) 12/18/2024 Refill [facility] [address] [place] [address] Linda Murphy DO Type 2 diabetes mellitus without complication, without long-term current use of insulin ([facility]); Type 2 diabetes mellitus with other specified complication, unspecified whether remote computer terminal operator insulin use ([facility]); Chronic obstructive pulmonary disease, unspecified COPD type ([facility]) 12/15/2024 Orders Only GENERIC EXTERNAL DATA DEPARTMENT Provider, Generic External Data 12/07/2024 Telephone [facility] [address] [place] [address] Linda Murphy DO 12/06/2024 Orders Only GENERIC EXTERNAL DATA DEPARTMENT Provider, Generic External Data 12/01/2024 Refill [facility] [address] [place] [address] Linda Murphy DO Acute post-traumatic headache, not intractable; Chronic obstructive pulmonary disease, unspecified COPD type ([facility]) 11/25/2024 Orders Only [facility] External Provider, [facility] 11/18/2024 Travel 11/14/2024 Refill [facility] [address] [place] [address] Linda Murphy DO 11/04/2024 Refill [facility] [address] [place] [address] Linda Murphy DO Acute post-traumatic headache, not intractable 10/30/2024 Telephone [facility] [address] [place] [address] Joselyn García, KRYSTYNA PET results 10/30/2024 Telephone [facility] [address] [place] [address] RESULTS 10/24/2024 Refill [facility] [address] [place] [address] Linda Murphy DO from Last 3 Months [...] Description 01/27/2025 11:15 AM EDT Office Visit [facility] [address] [place] [address] Linda Murphy DO [address] [place] [address] 02/09/2025 1:00 PM EDT Clinical Support [facility] [address] [place] [address] No Lopez, KRYSTYNA Health Maintenance Due Date Last Done Comments CT Colonography 1972 Colonoscopy 1972 Colorectal Cancer Screening 1972 FIT DNA/Cologuard 1972 FIT 1972 FOBT 1972 Sigmoidoscopy 1972 Eye Exam 1982 Alcohol/Substance Use Screening 1984 Family Planning (PISQ) 1987 Hepatitis A Vaccines (1 of 2 - Risk 2-dose series) 1991 Mammogram 04/01/2021 04/01/2019, 03/12, 01/09/2018 Cervical Cancer Screening 02/15/2025 Pap Smear 02/15/2025 02/15/2022, 02/15/2022 Diabetes: Hemoglobin A1C 04/22/2025 025, 08/13/2024, 06/16/2024, Additional history exists Diabetes: Urine Protein Screening 08/13/2025 08/13/2024, 01/14/2023, [...] 7.8(01/20/2025 11:26 AM EDT) No Neri Yang, Kaiden Procedures Procedure Name Priority Date/Time Associated Diagnosis Comments XR CHEST 2 VIEWS STAT 01/20/2025 11:3 0 AM EDT Chest congestion APTT Routine 01/20/2025 11:26 AM EDT Preop examination PROTHROMBIN TIME-INR Routine 01/20/2025 11:26 AM EDT Preop examination HEMOGLOBIN A1C Routine 01/20/2025 11:26 AM EDT Preop examination BASIC METABOLIC PANEL Routine 01/20/2025 11:26 AM EDT Preop examination CBC WITH AUTO DIFFERENTIAL Routine 01/20/2025 11:26 AM EDT Preop examination XR CHEST 1 VIEW Routine 01/05/2025 12:41 [...] to Health Maintenance Results * XR Chest 2 Views (01/20/2025 11:30 AM EDT) Anatomical Region Laterality Modality Chest Radiographic Rosaura ging 01/20/2025 11:3 0 AM EDT Narrative 01/20/2025 11:50 AM EDT ? [facility] ?[address] ?[place] [address] ?XRay Report ? Signed ? Patient: Kiniel,Tisha ?MR#: [id number] ?? 61 ? : 1970 ?Acct:[id number] ? Age/Sex: 54 / F ?ADM Date: 01/20/25 ? Loc: HO.XRAY ? Attending Dr: Geneva Candelario MD ? Ordering Physician: Linda Murphy DO ?? Date of Service: 01/20/25 ?? Procedure(s): XR chest 2V ?? Accession Number(s): [id number] ? cc: Linda Murphy DO ? EXAMINATION: ??XR CHEST 2 VIEWS ? HISTORY: cough x 2 weeks ? COMPARISON: Comparison is made with the prior examination dated ?? 01/05/2025. ? FINDINGS: ??PA and lateral views of the chest are submitted. The lungs ?? are expanded and clear. ??There is no pleural effusion, pneumothorax, or ?? pulmonary vascular congestion. ??The heart is normal in size. ??The bones ?? are intact. ? XR/XR chest 2V ?? IMPRESSION: ?? No acute cardiopulmonary abnormality. ? Electronically signed by: ??Dillon Botello MD ??01/20/2025 11:48 AM EDT ? Dictated By: ?Dillon Botello MD ? Signed By: ?<Electronically signed by Dillon Botello MD in OV> ?01/20/25 1148 ? DD/ 1130 ? TD/TT: 01/20/25 1140 ? Estate Planning Paralegal: ? Procedure Note Gonzalez, Image - 01/20/[address] [address] XRay Report Signed Patient: Ayanna RuizNYR#: [id number] 61 : 1970Acct:[id number] Age/Sex: 54 / FADM Date: 01/20/25 Loc: [facility] Attending Dr: Geneva Candelario MD Ordering Physician: Linda Murphy DO Date of Service: 01/20/25 Procedure(s): XR chest 2V Accession Number(s): [id number] cc: Linda Murphy DO EXAMINATION: XR CHEST 2 VIEWS HISTORY: cough x 2 weeks COMPARISON: Comparison is made with the prior examination dated 01/05/2025. FINDINGS: PA and lateral views of the chest are submitted. The lungs are expanded and clear. There is no pleural effusion, pneumothorax, or pulmonary vascular congestion. The heart is normal in size. The bones are intact. XR/XR chest 2V IMPRESSION: No acute cardiopulmonary abnormality. Electronically signed by: Dillon Botello MD 01/20/2025 11:48 AM EDT RP Dictated By: Dillon Botello MD Signed By: <Electronically signed by Dillon Botello MD in OV> 01/20/25 1148 DD/ 1130 TD/TT: 01/20/25 1140 Estate Planning Paralegal: Linda Murphy DO IMG XR PROCEDURES Final Resu lt * (ABNORMAL) CBC auto differential (01/20/2025 11:26 AM EDT) Only the most recent of2 resultswithin the time period is included. White Blood Count 13.2(H) 4.8 - 10.8 X10*3/uL [facility] Red Blood Count 4.84 4.20 - 5.50 X10*6/uL [facility] Hemoglobin 13.6 12.0 - 16.0 g/dl [facility] Hematocrit 41.2 37.0 - 47.0 % [facility] Mean Corpuscular Volume 85.1 80.0 - 98.0 fL [facility] Mean Corpuscular Hemoglobin 28.1 27.0 - 33.0 pg [facility] Mean Corpuscular HGB Conc 33.0 31.0 - 35.0 g/dl [facility] Red Cell Distribution Width 13.7 11.0 - 16.0 % [facility] Platelet Count 329 160 - 400 X10*3/uL [facility] Mean Platelet Volume 9.4 9.4 - 12.3 fL [facility] Neutrophils Percent Auto 62.0 45 - 73 % [facility] Imm Gran Pct Auto 0.6(H) 0.0 - 0.4 % [facility] Lymphocytes Percent Auto 29.6 20 - 40 % [facility] Monocytes Percent Auto 6.0 2 - 11 % [facility] Eosinophils Percent Auto 1.4 0 - 4 % [facility] Basophils Percent Auto 0.4 0 - 2 % [facility] NRBC Pct Auto 0.0 0.0 - 0.2 /100WBC [facility] Neutrophils Absolute Auto 8.2 2.0 - 8.3 x10*3/uL [facility] Imm Gran Abs Auto 0.08(H) 0.00 - 0.03 X10*3/uL [facility] Lymphocytes Absolute Auto 3.9 1.2 - 4.9 X10*3/uL [facility] Monocytes Absolute Auto 0.8 0.1 - 1.2 X10*3/uL [facility] Eosinophils Absolute Auto 0.2 0.0 - 0.4 X10*3/uL [facility] Basophils Absolute Auto 0.1 0.0 - 0.2 X10*3/uL [facility] NRBC Abs Auto 0.000 0.0 - 0.012 X10*3/uL [facility] Blood Venous blood specimen / Unknown 01/20/2025 11:26 AM EDT 01/20/2025 11:26 AM EDT us Linda Murphy DO LAB BLOOD ORDERABLES Final R esult [facility] [address] [place] [address] [phone] * (ABNORMAL) Partial Thromboplastin Time, Activated (APTT) (01/20/2025 11:26 AM EDT) Only the most recent of2 resultswithin the time period is included. Partial Thromboplastin Time 44.2(H) 26.0 - 36.8 SEC [facility] Comment:For information rega rding the monitoring of direct thrombininhibitors, please refer to Pharmacy. Blood Venous blood specimen / Unknown 01/20/2025 11:26 AM EDT 01/20/2025 11:26 AM EDT Linda Murphy DO LAB BLOOD ORDERABLES Final R esult Performing Organization Address City/[facility]/ZIP Co de Phone Number [facility] [address] [place] [phone] * (ABNORMAL) Prothrombin Time-INR (01/20/2025 11:26 AM EDT) Only the most recent of2 resultswithin the time period is included. Prothrombin Time 10.1(L) 10.9 - 12.4 SEC [facility] INTERNATIONAL NORM RATIO 0.9 0.9 - 1.1 [facility] Comment:INTERNATIONAL NORMAL IZED RATIO (INR) REFERENCE RANGES Reference RangeFor patients not on anticoagulant therapy: 0.9 - 1.1INR ranges for oral anticoagulanttherapy:For prevention and treatment of venous thrombosis and pulmonary embolism: 2.0 - 3.0For acute myocardial infarction with aspirin therapy: 2.0 - 3.0For acute myocardial infarction without aspirin therapy: 3.0 - 4.0For patients with mechanical prosthetic heart valves: 2.5 - 3.5 Blood Venous blood specimen / Unknown 01/20/2025 11:26 AM EDT 01/20/2025 11:26 AM EDT us Linda Murphy DO LAB BLOOD ORDERABLES Final R esult Performing Organization Address [facility]/ZIP Co de Phone Number [facility] [address] [place] [phone] * (ABNORMAL) Hemoglobin A1c (01/20/2025 11:26 AM EDT) Hemoglobin A1c 7.8(H) <6.0 % [facility] Comment:Hemoglobin A1C Refer ence Range Adults: 4.8 - 6.0 % Non diabetic: < 6.0 % Goal: < 7.0 %Additional Action Suggested: > 8.0 %Note: Hemoglobin A1c results are invalid for patients with abnormal amounts of HbF. Blood transfusions may impact the HbA1c concentration in the patient sample. Estimated Average Glucose 177 mg/dL [facility] Comment:eAG = Estimated ave rage glucose which is %A1C expressed asaverage glucose, using the formula of the L3Z-MrjuobaSjumtrk Glucose study (ADAG), Diabetes Care, Vol.31,#8,Jun. 2007 Blood Venous blood specimen / Unknown 01/20/2025 11:26 AM EDT 01/20/2025 11:26 AM EDT us Linda Murphy DO LAB BLOOD ORDERABLES Final R esult [facility] [address] [place] [address] [phone] * (ABNORMAL) Basic Metabolic Panel (01/20/2025 11:26 AM EDT) Only the most recent of2 resultswithin the time period is included. Sodium 141 135 - 145 mmol/L [facility] Potassium 4.0 3.3 - 5.1 mmol/L [facility] Chloride 103 96 - 108 mmol/L [facility] Carbon Dioxide 31(H) 22 - 29 mmol/L [facility] Anion Gap 11(L) 12 - 20 [facility] Urea Nitrogen (BUN) 7(L) 9 - 16 mg/dL [facility] Creatinine, Serum 1.07 0.5 - 1.4 mg/dL [facility] Estimated Glomerular Filt Rate 54 [facility] Comment:Chronic Kidney Disea se: Estimated GFR < 60 mL/min/1.99e0Zvpmob Kidney Disease: Estimated GFR < 15 mL/min/1.73m2 Glucose 109 60 - 115 mg/dL [facility] Calcium 9.2 8.4 - 10.2 mg/dL [facility] Blood Venous blood specimen / Unknown 01/20/2025 11:26 AM EDT 01/20/2025 11:26 AM EDT us Linda Garciadillonelian DO LAB BLOOD ORDERABLES Final R esult [facility] [address] [facility] [place] [address] [phone] * XR Chest 1 View (01/05/2025 12:41 PM EST) Only the most recent of2 resultswithin the time period is included. Anatomical Region Laterality Modality Chest Radiographic Rosaura ging 01/05/2025 12:4 1 PM EST Narrative 01/06/2025 9:00 AM EST ? [facility] ?[address] ?[place] [address] ?XRay Report ? Signed ? Patient: Sara,Tisha ?MR#: [id number] ?? 61 ? : 1970 ?Acct:[id number] ? Age/Sex: 54 / F ?ADM Date: 01/05/25 ? Loc: HO.SSS ? Attending Dr: Mario Hoyt MD ? Ordering Physician: Rogelio Sales ?? Date of Service: 01/05/25 ?? Procedure(s): XR chest 1V ?? Accession Number(s): [id number] ? cc: Linda Murphy DO; Rogelio Sales [...] DD/ 1241 ? TD/TT: 01/05/25 1241 ? Estate Planning Paralegal: ? Procedure Note Donkatlynter, Image - 01/06/[address] [address] XRay Report Signed Patient: Ayanna RuiznMR#: [id number] 61 : 1970Acct:[id number] Age/Sex: 54 / FADM Date: 01/05/25 Loc: HO.[facility] Attending Dr: Mario Hoyt MD Ordering Physician: Rogelio Sales Date of Service: 01/05/25 Procedure(s): XR chest 1V Accession Number(s): [id number] cc: Linda Murphy DO; Rogelio Sales EXAMINATION: [...] 01/06/25 0857 DD/ 1241 TD/TT: 01/05/25 1241 Estate Planning Paralegal: [facility] External Provider IMG XR PROCEDURES Final Result * Gross and Microscopic Level 4 (01/05/2025 10:57 AM EST) 01/05/2025 10:5 7 AM EST 01/05/2025 11:19 AM EST Narrative [facility] - 01/07/2025 2:12 PM EST ----- ------- Name: Tisha Ruiz ? Age/Sex: 54/F ? : 1970 Unit#: [id number] ?? Attend Dr: Mario Hoyt MD ?Re01/05/25 ?Status: DEP SDC ? Location: HO.SSS ?Disch: ? ----- ------- SPEC : [id number] ?RECD: 01/05/25-1118 ? STATUS: ??SOUT ? REQ NUM: [id number] ? HILARY: 01/05/25-1056 ? SUBM DR: Rogelio Sales ? ENTERED: ??01/05/25-1120 ?SP TYPE: Surgical ? OTHR : Linda Murphy DO ?Mario Hoyt MD ORDERED: [...] ? Age/Sex: 54/F ? : 1970 Unit#: [id number] ?? Attend Dr: Mario Hoyt MD ?Re01/05/25 ?Status: DEP SDC ? Location: HO.SSS ?Disch: ? ----- ------- SPEC : [id number] ?RECD: 01/05/25-4019 ? STATUS: ??SOUT ? REQ NUM: [id number] ? HILARY: 01/05/25-1057 ? SUBM DR: Rogelio [...] Copies To: ?? Linda Murphy DO ?? [facility] ?? [address] ?? [place] [address] ?? [phone] ?? Mario Hoyt MD ?? [facility] ?? [address] ?? [place] [address] ?? [phone] ?? [email or web address] ?? Rogelio Sales ?? [address] ?? [place] [address] ?? [phone] ?? [email or web address] ----- ------- Signed (signature on file) Anuradha Bhavana 01/06/25 1718 ? ----- ------- ? END OF REPORT ? us Generic External Data Provider LAB CYTOLOGY [facility] Final Result [facility] [address] [place] [address] [phone] * CT Biopsy Lung Left (01/05/2025 10:18 AM EST) Anatomical Region Laterality Modality Computed Tomogra phy 01/05/2025 10:1 8 AM EST Narrative 01/06/2025 2:23 PM EST ? [facility] ?[address] ?[place] [address] ? CT Scan Report ? Signed ? Patient: Tisha Ruiz ?MR#: [id number] ?? 61 ? : 1970 ?Acct:[id number] ? Age/Sex: 54 / F ?ADM Date: 02/25/25 ? Loc: HO.SSS ? Attending Dr: Mario Hoyt MD ? Ordering Physician: Mario Hoyt MD ?? Date of Service: 01/05/25 ?? Procedure(s): CT biopsy lung LT ?? Accession Number(s): [id number] ? cc: Linda Murphy DO; Mario Hoyt MD ? Report Number: ?? [id number]: Total DLP = ??490.00 mGy-cm ?? 54-year-old [...] 02:20 PM EST RP ? Dictated By: ?Henrry,Rogelio LEON ? Signed By: ?<Electronically signed by Rogelio Sales in OV> ? 01/06/25 1420 ?<Electronically signed by Bharathi Land MD in OV> ? 01/06/25 1423 ? DD/ 1018 ? TD/TT: 01/05/25 1119 ? Estate Planning Paralegal: ? Procedure Note Donkatlynter, Image - 01/06/[address] [place] [address] [address] Scan Report Signed Patient: Ayanna RuiznMR#: [id number] 61 : 1970Acct:[id number] Age/Sex: 54 / FADM Date: 01/05/25 Loc: .[facility] Attending Dr: Mario Hoyt MD Ordering Physician: Mario Hoyt MD Date of Service: 01/05/25 Procedure(s): CT biopsy lung LT Accession Number(s): [id number] cc: Linda Murphy DO; Mario Hoyt MD Report Number: [id number]: Total DLP = 490.00 mGy-cm 54-year-old female [...] Bharathi Land MD 01/06/2025 02:20 PM EST Dictated By: Rogelio Sales Signed By: <Electronically signed by Rogelio Sales in OV> 01/06/25 1420 <Electronically signed by Bharathi Land MD in OV> 01/06/25 1423 DD/ 1018 TD/TT: 01/05/25 1119 Estate Planning Paralegal: [facility] External Provider IMG CT PROCEDURES Final Result * (ABNORMAL) Glucose, Whole Blood (01/05/2025 9:48 AM EST) Only the most recent of3 resultswithin the time period is included. Glucose, Whole Blood 149(H) 60 - 115 mg/dL [facility] Comment:METER #: [id number] 01/05/2025 9:48 AM EST 01/05/2025 9:53 AM EST us Generic External Data Provider LAB BLOOD ORDERAB LES Final Result Performing Organization Address City/[facility]/ZIP Co de Phone Number [facility] [address] [place] [phone] * (ABNORMAL) Urinalysis, Complete, with Reflex to Culture (12/06/2024 12:50 PM EST) Color Urine Yellow [facility] Appearance Urine Clear [facility] PH 7.5 5.0 - 9.0 [facility] Glucose Urine UA Negative Negative mg/dL [facility] Urine Blood Negative Negative [facility] Specific [place] - Urine 1.015 1.005 - 1.025 [facility] Urine Protein Trace Neg-Trace mg/dL [facility] Urine Ketones Negative Negative mg/dL [facility] Nitrite Urine Negative Negative [facility] Leukocyte Esterase Urine Small (1+)(A) Negative [facility] RBC Urine 0-2 0 - 2 /HPF [facility] Urine WBC 11-20(A) 0 - 5 /HPF [facility] Urine Squamous Epithelial Cell 0-2 0 - 2 /HPF [facility] Urine Bacteria Trace None Seen [facility] Hyaline Casts, Urine 0-2 0 - 2 /LPF [facility] 12/06/2024 12:5 0 PM EST 12/06/2024 1:03 PM EST Narrative [facility] - 12/06/2024 1:24 PM EST Urine, Clean Catch us Generic External Data Provider LAB URINE ORDERAB LES Final Result Performing Organization Address City/[facility]/ZIP Co de Phone Number [facility] [address] [place] [phone] * SARS-CoV-2 RNA, Influenza A/B, and RSV RNA, Ql NAAT (12/06/2024 12:50 PM EST) Pathologist [facility] Influenza A PCR NEGATIVE Negative [facility] Influenza B PCR NEGATIVE Negative [facility] Resp Syncy Virus RNA Qual PCR NEGATIVE Negative [facility] SARS COV2 PCR NEGATIVE Negative [facility] Comment:All test results mus t [...] use by authorized laboratories.Testing performed on the Colibri Heart Valve GeneXpert utilizingreal-time RT-PCR.All SARS CoV2 and positive influenza A/B results arereported to [facility]. 12/06/2024 12:5 0 PM EST 12/06/2024 1:03 PM EST Generic External Data Provider LAB MICROBIOLOGY - GENERAL ORDERABLES Final Result [facility] [address] [place] [phone] * (ABNORMAL) Hepatic Function Panel (12/06/2024 12:50 PM EST) Pathologist [facility] Bilirubin, Total 0.2 0.0 - 1.0 mg/dL [facility] Bilirubin, Direct <0.2 0.0 - 0.5 mg/dL [facility] Aspartate Amino Transferase 23 5 - 31 U/L [facility] Alanine Aminotransferase 26 0 - 31 U/L [facility] Total Protein 8.1(H) 6.5 - 8.0 g/dL [facility] Albumin Level 4.4 3.5 - 5.0 g/dL [facility] Alkaline Phosphatase 92 39 - 117 U/L [facility] 12/06/2024 12:5 0 PM EST 12/06/2024 1:03 PM EST Generic External Data Provider LAB BLOOD ORDERAB LES Final Result Performing Organization Address [facility] de Phone Number [facility] [address] [place] [address] [phone] * Culture, Urine, Routine (12/06/2024 12:00 AM EST) Urine Urine specimen obtained by clean catch procedure / Unknown 12/06/2024 12/06/2024 Comment:UACC Narrative [facility] - 12/07/2024 8:13 AM EST Urine Culture Report Result Urine Culture 50,000 to 100,000 cfu/ml Urine Culture Mixed bacterial cabrera characteristic of Urine Culture urogenital contamination. Specimen Source: Urine clean catch Generic External Data Provider LAB MICROBIOLOGY - GENERAL ORDERABLES Final Result Performing Organization Address [facility] de Phone Number [facility] [address] [place] [address] [phone] * US Head Neck Soft Tissue (11/25/2024 2:35 PM EST) Anatomical Region Laterality Modality Head, Neck Ultrasound 11/25/2024 2:35 PM EST Narrative 11/26/2024 8:32 AM EST ? [facility] ?[address] ?[place] [address] ? Ultrasound Report ? Signed ? Patient: Jonesiel,Tisha ?MR#: [id number] ?? 61 ? : 1970 ?Acct:[id number] ? Age/Sex: 54 / F ?ADM Date: 01/15/25 ? Loc: HO.US ? Attending Dr: Geneva Candelario MD ? Ordering Physician: Geneva Candelario MD ?? Date of Service: 11/25/24 ?? Procedure(s): US soft tiss head and/or neck ?? Accession Number(s): [id number] ? cc: Linda Murphy DO; Geneva Candelario [...] MD ? Signed By: ?<Electronically signed by Jaime Hassan MD in OV> ?11/26/24 0829 ? DD/ 1435 ? TD/TT: 11/25/24 1450 ? Estate Planning Paralegal: MSM ? Procedure Note Donotuseinterpreter, Image - 11/26/2024 [place] [address] Ultrasound Report Signed Patient: Ayanna RuiznMR#: [id number] 61 : 1970Acct:[id number] Age/Sex: 54 / FADM Date: 11/25/24 Loc: HO.US Attending Dr: Geneva Candelario MD Ordering Physician: Geneva Candelario MD Date of Service: 11/25/24 Procedure(s): US soft tiss head and/or neck Accession Number(s): [id number] cc: Linda Murphy DO; Geneva Candelario MD [...] by: Jamie Hassan MD 11/26/2024 08:[address] [facility] Dictated By: Jamie Hassan MD Signed By: <Electronically signed by Jamie Hassan MD in OV> 11/26/24 0829 DD/ 1435 TD/TT: 11/25/24 1450 Estate Planning Paralegal: DAMI us [facility] External Provider IMG US PROCEDURES Edited Result - Final * Albumin, Random Urine W/Creatinine (08/13/2024 3:30 PM EDT) Creatinine, Urine 21.51 mg/dL [facility] Microalbumin Urine <5.0 mg/L H [facility] Microalbum Creatinine Ratio Ur TNP <30 ug/mg cr [facility] Comment:Unable to calculate albumin/creatinine ratio due to lowmicroalbumin or creatinine result. Urine (Urine, Random) 08/13/2024 3:30 PM EDT 08/13/2024 3:38 PM EDT us Linda Murphy DO LAB URINE ORDERABLES Final R esult [facility] [address] [place] [address] [phone] * (ABNORMAL) Lipid Panel, Standard (08/13/2024 3:26 PM EDT) Triglycerides 257(H) <150 mg/dL [facility] Comment:Desirable Triglyceri de: less than 150 mg/dLBorderline High Triglyceride 150-199 mg/dLHigh Triglyceride: 200-499 mg/dLVery High Triglyceride: greater than or equal to 5OO mg/dL Cholesterol 151 <200 mg/dL [facility] Comment:Desirable Cholestero l: less than 200 mg/dLBorderline High Cholesterol: 200-239 mg/dLHigh Cholesterol: greater than 239 mg/dL LDL Cholesterol Calculated 61 <100 mg/dL [facility] Comment:Desirable LDL: less than 100 mg/dLNear Optimal/Above Optimal LDL: 110- 129 mg/dLBorderline High LDL: 130-159 mg/dLHigh LDL: 160-189 mg/dLVery High LDL: greater than or equal to 190 mg/dL HDL Cholesterol 39(L) >40 mg/dL [facility] Comment:Desirable HDL: great er than 40 mg/dL Note: This HDL assay may give artificially low results in patients with liver disease. Blood Venous blood specimen / Unknown 08/13/2024 3:26 PM EDT 08/13/2024 3:26 PM EDT us Linda Murphy DO LAB BLOOD ORDERABLES Final R esult [facility] [address] [place] [address] [phone] * HIV Ab/Ag (SETH PAK) (08/26/2023 2:47 PM EDT) HIV AB/AG Nonreactive Nonreactive [facility] Comment:HIV-1 p24 Ag and/or HIV-1/HIV-2 Ab not detected.A test result that is nonreactive does not exclude thepossibility of exposure to or infection with HIV-1 and/orHIV-2. Nonreactive results in this assay for individualswith prior exposure to HIV-1 and/or HIV-2 may be due toantigen and antibody levels that are below the limit ofdetection of this assay.[employer] HIV Ag/Ab Combo assay result andsupplemental assay results should be interpreted inconjunction with the patient's clinical presentation,history and other laboratory results. If the results areinconsistent with clinical evidence, additional testing issuggested to confirm the result. 08/26/2023 2:47 PM EDT 08/26/2023 2:47 PM EDT Linda Murphy LAB BLOOD ORDERABLES Final R esult Performing Organization Address [facility]/ZIP Co de Phone Number [facility] [address] [place] [phone] * Hepatitis C Antibody with Reflex to HCV, RNA, Quantitative, Real-Time PCR (08/26/2023 2:47 PM EDT) Pathologist [facility] Hepatitis C Antibody Nonreactive Nonreactive [facility] Comment:Antibodies to HCV no t detected; does not exclude early acuteHCV infection. 08/26/2023 2:47 PM EDT 08/26/2023 2:47 PM EDT Linda Murphy LAB BLOOD ORDERABLES Final R esult Performing Organization Address [facility]/ZIP Co de Phone Number [facility] [address] [place] [phone] * HPV E6/E7 RFLX LUIS 16 18/45 (05/21/2022 3:45 PM EDT) HPV mRNA E6/E7 rflx Not Detected Not Detected [facility] Comment: Methodology: 411 Directory Assistance Operator-Mediated Amplification This assay detects E6/E7 viral messenger RNA (mRNA) from 14 high-risk HPV types (16,18,31,33,35,39,45,51,52,56,58,59,66,68). Cervical sources are required for HPV testing. If a vaginal source from a patient who has had a total hysterectomy with removal of cervix was submitted, please contact the testing laboratory for alternative testing options. For additional information, please refer to http://education.MollyWatr/faq/TWS648g3 (This link if provided for information/ educational purposes only.) THIS TEST WAS PERFORMED AT: [facility] [address] [place] [address],[address] [place], [place] ??[phone] VALERIA DURANT MD 05/21/2022 3:45 PM EDT Frecho Palmer MD HISTORICAL/NON ORDERABLE LABS Fi nal Result Performing Organization Address [facility]/ZIP Co de Phone Number [facility] [address] [place] [address] * Pap Smear (02/15/2022 12:00 AM EDT) Swab Linda Murphy DO LAB CYTOLOGY ORDERABLES Ce l Result Performing Organization Address [facility]/ZIP Co de Phone Number [employer] [address] [place] [address], [place] [address] * DIGITAL BILATERAL SCREEN 1 (04/01/2019 2:56 PM EDT) Anatomical Region Laterality Modality Breast Bilateral Mammography 04/01/2019 2:56 PM EDT Narrative 04/01/2019 2:58 PM EDT Refer to the Notes tab for result details [facility] Procedure: DIGITAL BILATERAL SCREEN 1 Procedure Note ProviderMargie MD - 02/02/2023 Refer to the Notes tab for result details [facility] Procedure: DIGITAL BILATERAL SCREEN 1 us Linda Murphy DO IMG BI PROCEDURES Final Resu lt from Last 3 Months or Most Recently Relevant to Health Maintenance Insurance [facility] Care Teams Theoretical Physics Teacher Relationship Specialty Start Date End Date Linda Murphy DO [address] [place] [address] PCP - General Family Medicine 11/24/12 Antionette Murphy, PharmD [address] [place] [phone] Pharmacist Internal Medicine 07/15/24
--- OUTSIDE RECORDS SUMMARY | 2025-01-20 13:17 | XMS_ITS | Encounter Summary ---
Author Organization [employer] Address [address] [place] [address] Care Team Providers Care Transit Authority Police Officer Name Role Phone Joelle Murphyfer Primary Care Provider + [phone] Antionette Murphy PharmD Unavailable [phone] Encounter Details Date Type Department Care [...] Description 01/27/2025 11:15 AM EDT Office Visit [address] [address] Linda Murphy DO [address] [place], [place] [phone] 02/09/2025 1:00 PM EDT Clinical Support [address] [phone] No Lopez RN documented as of this [...] EST Narrative 01/06/2025 9:00 AM EST ? [facility] ?[address] ?[place] [address] ?XRay Report ? Signed ? Patient: Kiniel,Tisha ?MR#: [id number] ?? 61 ? : 1970 ?Acct:[id number] ? Age/Sex: 54 / F ?ADM Date: 01/05/25 ? Loc: HO.SSS ? Attending Dr: Mario Hoyt MD ? Ordering Physician: Rogelio Sales ?? Date of Service: 01/05/25 ?? Procedure(s): XR chest 1V ?? Accession Number(s): [id number] ? cc: Linda Murphy DO; Rogelio Sales [...] DD/ 1241 ? TD/TT: 01/05/25 1241 ? Radiology Tech: ? Procedure Note Elena Roth - 01/06/[address] [address] XRay Report Signed Patient: Ayanna RuizElmerSilva#: [id number] 61 : 1970Acct:[id number] Age/Sex: 54 / FADM Date: 01/05/25 Loc: HO.SSS Attending Dr: Mario Hoyt MD Ordering Physician: Rogelio Sales Date of Service: 01/05/25 Procedure(s): XR chest 1V Accession Number(s): [id number] cc: Linda Murphy DO; Rogelio Sales EXAMINATION: [...] 01/06/25 0857 DD/ 1241 TD/TT: 01/05/25 1241 Radiology Tech: [facility] External Provider IMG XR PROCEDURES Final Result * XR Chest 1 View (01/05/2025 11:45 AM EST) Anatomical Region Laterality Modality Chest Radiographic Rosaura ging 01/05/2025 11:4 5 AM EST Narrative 01/05/2025 11:56 AM EST ? [facility] ?[address] ?[place] [address] ?XRay Report ? Signed ? Patient: Tisha Ruiz ?MR#: [id number] ?? 61 ? : 1970 ?Acct:[id number] ? Age/Sex: 54 / F ?ADM Date: 02/25/25 ? Loc: HO.SSS ? Attending Dr: Mario Hoyt MD ? Ordering Physician: Rogelio Sales ?? Date of Service: 01/05/25 ?? Procedure(s): XR chest 1V ?? Accession Number(s): [id number] ? cc: Linda Murphy DO; Rogelio Sales [...] DD/ 1145 ? TD/TT: 01/05/25 1145 ? Radiology Tech: ? Procedure Note Elena Roth - 01/05/[address] [address] XRay Report Signed Patient: Ayanna RuiznMR#: [id number] 61 : 1970Acct:[id number] Age/Sex: 54 / FADM Date: 01/05/25 Loc: .SSS Attending Dr: Mario Hoyt MD Ordering Physician: Rogelio Sales Date of Service: 01/05/25 Procedure(s): XR chest 1V Accession Number(s): [id number] cc: Linda Murphy DO; Rogelio Sales EXAMINATION: [...] 01/05/25 1154 DD/ 1145 TD/TT: 01/05/25 1145 Radiology Tech: [facility] External Provider IMG XR PROCEDURES Final Result * Gross and Microscopic Level 4 (01/05/2025 10:57 AM EST) 01/05/2025 10:5 7 AM EST 01/05/2025 11:19 AM EST [facility] - 01/07/2025 2:12 PM EST ----- ------- Name: Tisha Ruiz ? Age/Sex: 54/F ? : 1970 Unit#: [id number] ?? Attend Dr: Mario Hoyt MD ?Re01/05/25 ?Status: DEP SDC ? Location: HO.SSS ?Disch: ? ----- ------- SPEC : [id number] ?RECD: 01/05/25-1119 ? STATUS: ??SOUT ? REQ NUM: [id number] ? HILARY: 01/05/25-1057 ? SUBM DR: Rogelio [...] ? Age/Sex: 54/F ? : 1970 Unit#: [id number] ?? Attend Dr: Mario Hoyt MD ?Re01/05/25 ?Status: DEP SDC ? Location: HO.SSS ?Disch: ? ----- ------- SPEC : [id number] ?RECD: 01/05/25-1118 ? STATUS: ??SOUT ? REQ NUM: [id number] ? HILARY: 01/05/25-1056 ? SUBM DR: Rogelio [...] Copies To: ?? Linda Murphy DO ?? [facility] ?? [address] ?? [place] [address] ?? [phone] ?? Mario Hoyt MD ?? [facility] ?? [address] ?? [place] [address] ?? [phone] ?? [email or web address] ?? Rogelio Sales ?? [address] [facility] ?? [place] [address] ?? [phone] ?? [email or web address] ----- ------- Signed (signature on file) Anuradha [place] 01/06/251717 ? ----- ------- ? END OF REPORT ? us Generic External Data Provider LAB CYTOLOGY ANDERSON VALENTINO Final Result [facility] [address] [facility] [place] [phone] * CT Biopsy Lung Left (01/05/2025 10:18 AM EST) Anatomical Region Laterality Modality Computed Tomogra phy 01/05/2025 10:1 8 AM EST Narrative 01/06/2025 2:23 PM EST ? [facility] ?[address] ?[place] [address] ? CT Scan Report ? Signed ? Patient: Kiniel,Tisha ?MR#: [id number] ?? 61 ? : 1970 ?Acct:[id number] ? Age/Sex: 54 / F ?ADM Date: 01/05/25 ? Loc: HO.SSS ? Attending Dr: Mario Hoyt MD ? Ordering Physician: Mario Hoyt MD ?? Date of Service: 01/05/25 ?? Procedure(s): CT biopsy lung LT ?? Accession Number(s): [id number] ? cc: Lnida Murphy DO; Mario Hoyt MD ? Report Number: ?? [id number]: Total DLP = ??490.00 mGy-cm ?? 54-year-old [...] DD/ 1018 ? TD/TT: 01/05/25 1119 ? Radiology Tech: ? Procedure Note Gonzalez, Image - 01/06/[address] [address] [address] Scan Report Signed Patient: Ayanna RuizNJR#: [id number] 61 : 1970Acct:[id number] Age/Sex: 54 / FADM Date: 01/05/25 Loc: HO.JERI Attending Dr: Mario Hoyt MD Ordering Physician: Mario Hoyt MD Date of Service: 01/05/25 Procedure(s): CT biopsy lung LT Accession Number(s): [id number] cc: Linda Murphy DO; Mario Hoyt MD Report Number: [id number]: Total DLP = 490.00 mGy-cm 54-year-old female [...] 01/06/25 1423 DD/ 1018 TD/TT: 01/05/25 1119 Radiology Tech: us [facility] External Provider IMG CT PROCEDURES Final Result * (ABNORMAL) Glucose, Whole Blood (01/05/2025 9:48 AM EST) Glucose, Whole Blood 149(H) 60 - 115 mg/dL [facility] Comment:METER #: [id number] 01/05/2025 9:48 AM EST 01/05/2025 9:53 AM EST Generic External Data Provider LAB BLOOD ORDERAB LES Final Result Performing Organization Address City/State/[facility] Co de Phone Number [facility] [address] [place] [phone] documented in this encounter Visit Diagnoses Not on filedocumented in this encounter Additional Health Concerns Assessment Noted Time PHQ-9 Depression Total Score: 0 02/27/20 23 11:42 AM EDT documented as of this encounter Care Teams Transit Authority Police Officer Relationship Specialty Start Date End Date Linda Murphy DO [address] [place] [address] PCP - General Family Medicine 11/24/12 Antionette Murphy PharmD [address] [place] [address] Pharmacist Internal Medicine 07/15/24 documented as of this encounter
--- OUTSIDE RECORDS SUMMARY | 2025-01-20 13:17 | XMS_ITS | Encounter Summary ---
Author Organization [facility] Address [address] [place] [address] Care Team Providers Care Delivery Stock Clerk Name Role Phone Joelle Murphyfer Juanito RAMESH Primary Care Provider [phone] Reason for Visit * Reason Comments Foot Pain MANAGER PRICING PLANTAR FASCITIS * Orthopedic (Routine) - Closed Specialty Diagnoses / Procedures Referred By Rolf pascual Referred To Contact Podiatry / Orthopaedic Surgery Diagnoses Plantar callus Procedures AMB REFERRAL TO PODIATRY Asuncion Bailey MD [address] [phone] Phone: tel: fax: Gutierrez Ruiz DPM [address] [address] Phone: tel: fax: Referral ID Status Reason Start Date Expiration Date V isits Requested Visits Authorized [id number] Closed Consult and Treat 1 Encounter Details Date Type Department Care Team (Late st Contact Info) Description 12/29/2024 1:45 PM EST Office Visit Orthopedic Surgery - [address] [phone] Gutierrez Ruiz DPM [address] [address] Controlled type 2 diabetes with neuropathy (CMS/HCC) [...] Sharp/dull sensation intact, protective sensation intact on [place]. Peripheral neuropathy throughout the feet bilaterally ORTHOPEDIC: [...] Continue with regular appointments with PMD or paper roller for tight medical management Patient found to [...] Patient shown different offloading measures (metatarsal pads). [id number]: Destruction of eccrine poroma left foot: Verbal [...] AM EDT Office Visit Orthopedic Surgery - [place] [address] [phone] Gutierrez Ruiz DPM [address] [address] documented as of this encounter Visit Diagnoses Diagnosis Controlled type 2 diabetes with neuropathy (CMS/[facility])- Primary Type II or unspecified type [...] split. added in this encounter Care Teams Delivery Stock Clerk Relationship Specialty Start Date End Date Linda Murphy DO [address] [place] [address] PCP - General Internal Medicine 04/09/19 documented as of this encounter
--- OUTSIDE RECORDS SUMMARY | 2025-01-20 13:17 | XMS_ITS | Encounter Summary ---
Author Organization [employer] Address [address] [place] [address] Care Team Providers Care Logistics Administrator Name Role Phone Katherine Linda Primary Care Provider + [phone] Antionette Murphy PharmD Unavailable [phone] Reason for Visit * Reason Onset Date Comments Recommend CMM OPERATOR Tier 2 01/07/2025 Encounter Details Date Type Department Care Team ([facility] Contact Info) Description 01/07/2025 Telephone [facility] [address] [place] [address] No Lopez, KRYSTYNA Recommend CMM OPERATOR Tier 2 Social History Tobacco Use Types [...] RN - 01/07/2025 7:26 AM EST What CMM OPERATOR Tier would you like this patient to be? I recommend Tier 2, please let me know if you agree or would rather patient be in another CMM OPERATOR Tier. Tier 1 = HIGH RISK, Monthly CMM OPERATOR visits Tier 2 = MODerate RISK, Q3 Month visits Tier 3 = LOW RISK = Q4-6 month visits documented in this encounter Plan of Treatment Upcoming Encounters Date Type Department Care Team (Late st Contact Info) Description 01/27/2025 11:15 AM EDT Office Visit [address] [address] Linda Murphy DO [address] [place] [address] 02/09/2025 1:00 PM EDT Clinical Support [facility] [address] [place] [phone] No Lopez, RN documented as of this [...] documented as of this encounter Care Teams Logistics Administrator Relationship Specialty Start Date End Date Linda Murphy DO [address] [place] [address] PCP - General Family Medicine 11/24/12 Antionette Murphy PharmD [address] [place] [address] Pharmacist Internal Medicine 07/15/24 documented as of this encounter
--- OUTSIDE RECORDS SUMMARY | 2025-01-20 13:17 | XMS_ITS | Encounter Summary ---
Author Organization [employer] Address [address] [place] [address] Care Team Providers Care Comic Book Designer Name Role Phone Katherine Linda Primary Care Provider [phone] Antionette Murphy PharmD Unavailable [phone] Reason for Visit * Reason Onset Date Comments NCNS CLOTH PAINTER RV today 01/12/2025 Encounter Details Date Type Department Care Team (Late st Contact Info) Description 01/12/2025 Telephone [facility] [address] [place] [address] No Lopez RN NCNS CLOTH PAINTER RV today Social History Tobacco Use Types [...] 11:14 AM EST Pt was NCNS for CLOTH PAINTER RV today. Previous to today: 01/07/25 - Pt NCNS CLOTH PAINTER RV 12/29/24 - Pt cancelled CLOTH PAINTER RV 12/15/24 - Pt cancelled CLOTH PAINTER RV 10/27/24 - Pt cancelled CLOTH PAINTER RV TC to patient, no answer. L/M asking her to call back to reschedule appt. Will update PCP on missed appts documented in this encounter Plan of Treatment Upcoming Encounters Date Type Department Care Team (Late st Contact Info) Description 01/27/2025 11:15 AM EDT Office Visit [facility] [address] [place] [address] Linda Murphy DO [address] [place] [address] 02/09/2025 1:00 PM EDT Clinical Support [facility] [address] [place] [address] No Lopez, RN documented as of this [...] documented as of this encounter Care Teams Comic Book Designer Relationship Specialty Start Date End Date Linda Murphy DO [address] [place] [address] PCP - General Family Medicine 11/24/12 Antionette Murphy PharmD [address] [place] [address] Pharmacist Internal Medicine 07/15/24 documented as of this encounter
--- OUTSIDE RECORDS SUMMARY | 2025-01-20 13:17 | XMS_ITS | Encounter Summary ---
Author Organization [employer] Address [address] [place] [address] Care Team Providers Care Trim Sawyer Name Role Phone Katherine Linda Primary Care Provider + [phone] Antionette Murphy PharmD Unavailable [phone] Reason for Visit * Reason Onset Date Comments NCNS for CORE EXTRUDER RV today 01/07/2025 Encounter Details Date Type Department Care Team (Late st Contact Info) Description 01/07/2025 Telephone [facility] [address] [place] [address] No Lopez, RN NCNS for CORE EXTRUDER RV today Social History Tobacco Use Types [...] 10:42 AM EST Pt was NCNS for CORE EXTRUDER RV appt today. Pt cancelled CORE EXTRUDER 12/29/24, 12/15/24 and 10/27/24. TC to patient, [...] Description 01/27/2025 11:15 AM EDT Office Visit [facility] [address] [place] [phone] Linda Murphy DO [address] [place] [address] 02/09/2025 1:00 PM EDT Clinical Support [facility] [address] [place] [address] No Lopez, RN documented as of this [...] as of this encounter Care Teams Trim Sawyer Relationship Specialty Start Date End Date Linda Murphy DO [address] [place] [address] PCP - General Family Medicine 11/24/12 Antionette Murphy PharmD [address] [place] [address] Pharmacist Internal Medicine 07/15/24 documented as of this encounter
--- OUTSIDE RECORDS SUMMARY | 2025-01-20 13:17 | XMS_ITS | Encounter Summary ---
Author Organization [employer] Address [address] [place] [address] 7t [place] [address] Care Team Providers Care Media Job Titles Name Role Phone Linda Murphy DO Primary Care Provider [phone] Antionette Murphy PharmD Unavailable [phone] Reason for Referral * Cardiology (Routine) - Closed Specialty Diagnoses / Procedures Referred By Contac t Referred To Contact Diagnoses Preop examination Procedures ECG 12 lead Linda Murphy DO [address] [place] [address] Phone: tel: fax: [address] Phone: tel: fax: Referral ID Status Reason Start Date Expiration Date Visits Re quested Visits Authorized [id number] Closed 01/19/2025 01/19/2026 1 1 Reason for Visit * Reason Comments Televisit Encounter Details Date Type Department Care Team (Late st Contact Info) Description 01/19/2025 11:45 AM EDT Telemedicine [facility] MEDICINE [address] [place] [address] Linda Murphy DO [address] [place] [address] Chest congestion (Primary Dx); Preop examination Social [...] Office Visit [facility] MEDICINE [address] [place] [address] Linda Murphy DO [address] [place] [address] 02/09/2025 1:00 PM EDT Clinical Support [facility] [address] [place] [address] No Lopez RN Scheduled Orders Name Type Priority Associated Diagnoses Orde r Schedule ECG 12 lead ECG Routine Preop examination Ordered: 01/19/2025 documented as of this encounter Goals Goal Patient Goal Type Associated Problems Recent Progress Patient-Stated? Author Hemoglobin A1c < 7 Result Component 7.8(01/20/2025 11:26 AM EDT) No Neri Yagn, PharmD documented as of this encounter Procedures Procedure Name Priority Date/Time Associated Diagnosis Comments XR CHEST 2 VIEWS STAT 01/20/2025 11:3 0 AM EDT Chest congestion CBC WITH AUTO DIFFERENTIAL Routine 01/20/2025 11:26 AM EDT Preop examination APTT Routine 01/20/2025 11:26 AM EDT Preop examination PROTHROMBIN TIME-INR Routine 01/20/2025 11:26 AM EDT Preop examination HEMOGLOBIN A1C Routine 01/20/2025 11:26 AM EDT Preop examination BASIC METABOLIC PANEL Routine 01/20/2025 11:26 AM EDT Preop examination documented in this encounter Results * XR Chest 2 Views (01/20/2025 11:30 AM EDT) Anatomical Region Laterality Modality Chest Radiographic Rosaura ging 01/20/2025 11:3 0 AM EDT Narrative 01/20/2025 11:50 AM EDT ? [facility] ?[address] ?[place] [address] ?XRay Report ? Signed ? Patient: Sara,Tisha ?MR#: [id number] ?? 61 ? : 1970 ?Acct:[id number] ? Age/Sex: 54 / F ?ADM Date: 03/12/25 ? Loc: HO.XRAY ? Attending Dr: Geneva Candelario MD ? Ordering Physician: Linda Murphy DO ?? Date of Service: 01/20/25 ?? Procedure(s): XR chest 2V ?? Accession Number(s): [id number] ? cc: Linda Murphy DO ? EXAMINATION: [...] DD/ 1130 ? TD/TT: 01/20/25 1140 ? C D Area Supervisor: ? Procedure Note Gonzalez, Image - 01/20/2025 [place] [address] XRay Report Signed Patient: Ayanna RuiznMR#: [id number] 61 : 1970Acct:[id number] Age/Sex: 54 / FADM Date: 01/20/25 Loc: LATOYA Attending Dr: Geneva Candelario MD Ordering Physician: Linda Murphy DO Date of Service: 01/20/25 Procedure(s): XR chest 2V Accession Number(s): [id number] cc: Linda Murphy DO EXAMINATION: XR CHEST [...] Botello MD Signed By: <Electronically signed by Dillno Botello MD in OV> 01/20/25 1148 DD/ 1130 TD/TT: 01/20/25 1140 C D Area Supervisor: us Linda Murphy DO IMG XR PROCEDURES Final Resu lt * (ABNORMAL) Partial Thromboplastin Time, Activated (APTT) (01/20/2025 11:26 AM EDT) Partial Thromboplastin Time 44.2(H) 26.0 - 36.8 [facility] Comment:For information rega rding the monitoring of direct thrombininhibitors, please refer to Pharmacy. Blood Venous blood specimen / Unknown 01/20/2025 11:26 AM EDT 01/20/2025 11:26 AM EDT Linda Murphy DO LAB BLOOD ORDERABLES Final R esult [facility] [address] [place] [phone] * (ABNORMAL) Prothrombin Time-INR (01/20/2025 11:26 AM EDT) Prothrombin Time 10.1(L) 10.9 - 12.4 [facility] INTERNATIONAL NORM RATIO 0.9 0.9 - 1.1 [facility] Comment:INTERNATIONAL NORMAL IZED RATIO (INR) [...] AM EDT 01/20/2025 11:26 AM EDT Linda Katherine LAB BLOOD ORDERABLES Final R esult Performing Organization Address [facility] Co de Phone Number [facility] [address] [place] [address] [phone] * (ABNORMAL) Hemoglobin A1c (01/20/2025 11:26 AM EDT) Hemoglobin A1c 7.8(H) <6.0 % [facility] Comment:Hemoglobin A1C Refer ence Range Adults: 4.8 - 6.0 % Non diabetic: < 6.0 % Goal: < 7.0 %Additional Action Suggested: > 8.0 %Note: Hemoglobin A1c results are invalid for patients with abnormal amounts of HbF. Blood transfusions may impact the HbA1c concentration in the patient sample. Estimated Average Glucose 177 mg/dL [facility] Comment:eAG = Estimated ave rage glucose which is %A1C expressed asaverage glucose, using the formula of the U7Z-DkbgivzDkhgrbt Glucose study (ADAG), Diabetes Care, Vol.31,#8,Jun. 2007 Blood Venous blood specimen / Unknown 01/20/2025 11:26 AM EDT 01/20/2025 11:26 AM EDT Linda Murphy DO LAB BLOOD ORDERABLES Final R esult Performing Organization Address City/[facility] Co de Phone Number [facility] [address] [place] [address] [phone] * (ABNORMAL) Basic Metabolic Panel (01/20/2025 11:26 AM EDT) Sodium 141 135 - 145 mmol/L [facility] Potassium 4.0 3.3 - 5.1 mmol/L [facility] Chloride 103 96 - 108 mmol/L [facility] Carbon Dioxide 31(H) 22 - 29 mmol/L [facility] Anion Gap 11(L) 12 - 20 [facility] Urea Nitrogen (BUN) 7(L) 9 - 16 mg/dL [facility] Creatinine, Serum 1.07 0.5 - 1.4 mg/dL [facility] Estimated Glomerular Filt Rate 54 [facility] Comment:Chronic Kidney Disea se: Estimated GFR < 60 mL/min/1.08b8Gblyct Kidney Disease: Estimated GFR < 15 mL/min/1.73m2 Glucose 109 60 - 115 mg/dL [facility] Calcium 9.2 8.4 - 10.2 mg/dL [facility] Blood Venous blood specimen / Unknown 01/20/2025 11:26 AM EDT 01/20/2025 11:26 AM EDT us Linda Murphy DO LAB BLOOD ORDERABLES Final R esult [facility] [address] [place] [phone] * (ABNORMAL) CBC auto differential (01/20/2025 11:26 AM EDT) White Blood Count 13.2(H) 4.8 - 10.8 X10*3/uL [facility] Red Blood Count 4.84 4.20 - 5.50 X10*6/uL [facility] Hemoglobin 13.6 12.0 - 16.0 g/dl [facility] Hematocrit 41.2 37.0 - 47.0 % [facility] Mean Corpuscular Volume 85.1 80.0 - 98.0 fL [facility] Mean Corpuscular Hemoglobin 28.1 27.0 - 33.0 pg [facility] Mean Corpuscular HGB Conc 33.0 31.0 - 35.0 g/dl [facility] Red Cell Distribution Width 13.7 11.0 - 16.0 % [facility] Platelet Count 329 160 - 400 X10*3/uL [facility] Mean Platelet Volume 9.4 9.4 - 12.3 fL [facility] Neutrophils Percent Auto 62.0 45 - 73 % [facility] Imm Gran Pct Auto 0.6(H) 0.0 - 0.4 % [facility] Lymphocytes Percent Auto 29.6 20 - 40 % [facility] Monocytes Percent Auto 6.0 2 - 11 % [facility] Eosinophils Percent Auto 1.4 0 - 4 % [facility] Basophils Percent Auto 0.4 0 - 2 % [facility] NRBC Pct Auto 0.0 0.0 - 0.2 /100WBC [facility] Neutrophils Absolute Auto 8.2 2.0 - 8.3 x10*3/uL [facility] Imm Gran Abs Auto 0.08(H) 0.00 - 0.03 X10*3/uL [facility] Lymphocytes Absolute Auto 3.9 1.2 - 4.9 X10*3/uL [facility] Monocytes Absolute Auto 0.8 0.1 - 1.2 X10*3/uL [facility] Eosinophils Absolute Auto 0.2 0.0 - 0.4 X10*3/uL [facility] Basophils Absolute Auto 0.1 0.0 - 0.2 X10*3/uL [facility] NRBC Abs Auto 0.000 0.0 - 0.012 X10*3/uL [facility] Blood Venous blood specimen / Unknown 01/20/2025 11:26 AM EDT 01/20/2025 11:26 AM EDT us Linda Murphy DO LAB BLOOD ORDERABLES Final R esult [facility] [address] [place] [address] [phone] documented in this encounter Visit Diagnoses Diagnosis Chest congestion- Primary Other symptoms involving respiratory system and chest Preop examination Unspecified pre-operative examination documented in this encounter Additional Health Concerns Assessment Noted Time PHQ-9 Depression Total Score: 0 01/20/20 25 12:15 PM EDT documented as of this encounter Care Teams Media Job Titles Relationship Specialty Start Date End Date Linda Murphy DO [address] [place] [address] PCP - General Family Medicine 11/24/12 Antionette Murphy PharmD [address] [place] [address] Pharmacist Internal Medicine 07/15/24 documented as of this encounter
--- OUTSIDE RECORDS SUMMARY | 2025-01-20 13:17 | XMS_ITS | Encounter Summary ---
Author Organization [employer] Address [address] [facility] 7t [place] [address] Care Team Providers Care Marble Setter Helper Name Role Phone Linda Murphy DO Primary Care Provider + [phone] Antionette Murphy PharmD Unavailable [phone] Encounter Details Date Type Department Care [...] Description 01/27/2025 11:15 AM EDT Office Visit [facility] MEDICINE [address] [place] [address] Linda Murphy DO [address] [place] [address] 02/09/2025 1:00 PM EDT Clinical Support [address] [address] No Lopez, KRYSTYNA documented as of this [...] documented as of this encounter Care Teams Marble Setter Helper Relationship Specialty Start Date End Date Linda Murphy DO [address] [place] [address] [phone] PCP - General Family Medicine 11/24/12 Antionette Murphy PharmD [address] [place] [address] [phone] Pharmacist Internal Medicine 07/15/24 documented as of this encounter
--- OUTSIDE RECORDS SUMMARY | 2025-01-20 13:17 | XMS_ITS | Encounter Summary ---
Author Organization [employer] Address [address] [facility] 7t [place] [address] Care Team Providers Care Medical Research Assistant Name Role Phone Linda Murphy DO Primary Care Provider [phone] Neri Yang PharmD Unavailable Unavail able Antionette Murphy PharmD Unavailable Reason for Visit * Reason Onset Date Comments Results 10/08/2023 Encounter Details Date Type Department Care Team ([facility] st Contact Info) Description 10/08/2023 Telephone [facility] MEDICINE [address] [place] [address] Linda Murphy DO [address] [place], [place] [phone] Results Social History Tobacco Use Types Packs/Day [...] yesterday 10/07/2023 but was transferred to the [facility]. documented in this encounter Plan of Treatment Upcoming Encounters Date Type Department Care Team (Late st Contact Info) Description 01/27/2025 11:15 AM EDT Office Visit [facility] MEDICINE [address] [place] [phone] Linda Murphy DO [address] [place] [address] 02/09/2025 1:00 PM EDT Clinical Support [facility] MEDICINE [address] [place] [address] No Lopez RN documented as of this [...] as of this encounter Care Teams Medical Research Assistant Relationship Specialty Start Date End Date Linda Murphy DO [address] [place] [address] PCP - General Family Medicine 11/24/12 Neri Yang, EricD [address] [place] [address] Pharmacist Internal Medicine 11/23/22 10/17/23 Antionette Murphy PharmD [address] [place] [address] Pharmacist Internal Medicine 07/15/24 documented as of this encounter
--- OUTSIDE RECORDS SUMMARY | 2025-01-20 13:17 | XMS_ITS | Encounter Summary ---
Author Organization [employer] Address [address] [facility] 7t [place] [address] Care Team Providers Care Vamp Cut Out Worker Name Role Phone Linda Murphy DO Primary Care Provider [phone] Antionette Murphy PharmD Unavailable [phone] Reason for Visit * Reason Comments Med Refill Encounter Details Date Type Department Care Team ([facility] st Contact Info) Description 11/24/2023 Refill [facility] MEDICINE [address] [place] [address] Linda Murphy DO [address] [place] [address] Social History Tobacco Use Types Packs/Day Years [...] 01/27/2025 11:15 AM EDT Office Visit [address] [address] Linda Murphy DO [address] [place] [address] 02/09/2025 1:00 PM EDT Clinical Support [address] [address] No Lopez RN documented as of this [...] documented as of this encounter Care Teams Vamp Cut Out Worker Relationship Specialty Start Date End Date Linda Murphy DO [address] [place] [phone] PCP - General Family Medicine 11/24/12 Antionette Murphy PharmD [address] [place] [address] [phone] Pharmacist Internal Medicine 07/15/24 documented as of this encounter
--- OUTSIDE RECORDS SUMMARY | 2025-01-20 13:17 | XMS_ITS | Encounter Summary ---
Author Organization [employer] [facility] Address [address] [facility] 7t [place] [address] Care Team Providers Care Radiation Oncologist Name Role Phone Linda Murphy DO Primary Care Provider Dellogla Neri PharmD Unavailable Unavail able Antionette Murphy PharmD Unavailable Reason for Visit * Reason Comments Med Refill Encounter Details Date Type Department Care Team (Late Contact Info) Description 07/08/[address] [facility] MEDICINE [address] [place] [address] Linda Murphy DO [address] [place] [address] Pain Social History Tobacco Use Types Packs/Day [...] 11:15 AM EDT Office Visit [facility] MEDICINE [address] [place] [address] Linda Murphy DO [address] [place] [address] 02/09/2025 1:00 PM EDT Clinical Support [facility] MEDICINE [address] [place] [address] No Lopez, RN documented as of this [...] documented as of this encounter Care Teams Radiation Oncologist Relationship Specialty Start Date End Date Linda Murphy DO [address] [place] [address] PCP - General Family Medicine 11/24/12 Neri Yang, PharmD [address] [place] [address] Pharmacist Internal Medicine 11/23/22 10/17/23 Antionette Murphy PharmD [address] [place] [phone] Pharmacist Internal Medicine 07/15/24 documented as of this encounter
--- OUTSIDE RECORDS SUMMARY | 2025-01-20 13:17 | XMS_ITS | Encounter Summary ---
Author Organization [employer] Address [address] [facility] 7t [place] [address] Care Team Providers Care Manager Club Name Role Phone Linda Murphy DO Primary Care Provider [phone] Antionette Murphy PharmD Unavailable [phone] Reason for Visit * Reason Onset Date Comments Durable Medical Equipment 03/06/2024 Encounter Details Date Type Department Care Team ([facility] st Contact Info) Description 03/06/2024 Telephone [facility] MEDICINE [address] [place] [address] Linda Murphy DO [address] [place] [address] Durable Medical Equipment Social History Tobacco Use [...] Description 01/27/2025 11:15 AM EDT Office Visit [address] [address] Linda Murphy DO [address] [place] [address] 02/09/2025 1:00 PM EDT Clinical Support [address] [address] No Lopez, RN documented as of this encounter Goals Goal Patient Goal Type Associated Problems Recent Progress Patient-Stated? Author Hemoglobin A1c < 7 Result Component 7.8(01/20/2025 11:26 AM EDT) No Neri Yang, Kaiden documented as of this encounter Visit Diagnoses Not on filedocumented in this encounter Additional Health Concerns Assessment Noted Time PHQ-9 Depression Total Score: 0 02/27/20 23 11:42 AM EDT documented as of this encounter Care Teams Manager Club Relationship Specialty Start Date End Date Linda Murphy DO [address] [place] [address] PCP - General Family Medicine 11/24/12 Antionette Murphy PharmD [address] [place] [address] Pharmacist Internal Medicine 07/15/24 documented as of this encounter
--- OUTSIDE RECORDS SUMMARY | 2025-01-20 13:17 | XMS_ITS | Encounter Summary ---
Author Organization [employer] Address [address] [facility] 7t [place] [address] Care Team Providers Care Lead Fire Protection Engineer Name Role Phone Linda Murphy DO Primary Care Provider [phone] Antionette Murphy PharmD Unavailable [phone] Encounter Details Date Type Department Care Team ([facility] st Contact Info) Description 01/19/2025 Telephone [facility] MEDICINE [address] [place] [address] Linda Murphy DO [address] [place] [address] Social History Tobacco Use Types Packs/Day Years [...] weeks and pt will be contacted by regional vice president surgical sales. Pt will need medical clearance with PCP prior to procedure. Preop labs and EKG ordered at visit this morning. Will have team RN scheduled preop visit. Pt notified and agrees with plans. documented in this encounter Plan of Treatment Upcoming Encounters Date Type Department Care Team (Late st Contact Info) Description 01/27/2025 11:15 AM EDT Office Visit [facility] MEDICINE [address] [place] [phone] Linda Murphy DO [address] [place] [address] 02/09/2025 1:00 PM EDT Clinical Support [facility] MEDICINE [address] [place] [address] No Lopez, KRYSTYNA documented as of this [...] documented as of this encounter Care Teams Lead Fire Protection Engineer Relationship Specialty Start Date End Date Linda Murphy DO [address] [place] [address] PCP - General Family Medicine 11/24/12 Antionette Murphy PharmD [address] [place] [address] Pharmacist Internal Medicine 07/15/24 documented as of this encounter
--- OUTSIDE RECORDS SUMMARY | 2025-01-20 13:17 | XMS_ITS | Encounter Summary ---
Author Organization [employer] Address [address] [facility] 7t [place] [address] Care Team Providers Care Buyers' Agent Name Role Phone Linda Murphy DO Primary Care Provider [phone] Antionette Murphy PharmD Unavailable [phone] Reason for Visit * Reason Comments Med Refill Encounter Details Date Type Department Care Team ([facility] st Contact Info) Description 02/23/2024 Refill [facility] MEDICINE [address] [place] [address] Linda Murphy DO [address] [place] [address] Chronic obstructive pulmonary disease, unspecified COPD type [...] Description 01/27/2025 11:15 AM EDT Office Visit [address] [address] Linda Murphy DO [address] [place] [address] 02/09/2025 1:00 PM EDT Clinical Support [address] [address] No Lopez, KRYSTYNA documented as of this encounter Goals Goal Patient Goal Type Associated Problems Recent Progress Patient-Stated? Author Hemoglobin A1c < 7 Result Component 7.8(01/20/2025 11:26 AM EDT) No Neri Yang, EricD documented as of this encounter Visit Diagnoses Diagnosis Chronic obstructive pulmonary disease, unspecified COPD type (CMS/HCC) Pain Generalized pain documented in this encounter Additional Health Concerns Assessment Noted Time PHQ-9 Depression Total Score: 0 02/27/20 23 11:42 AM EDT documented as of this encounter Care Teams Buyers' Agent Relationship Specialty Start Date End Date Linda Murphy DO [address] [place] [address] PCP - General Family Medicine 11/24/12 Antionette Murphy PharmD [address] [place] [address] Pharmacist Internal Medicine 07/15/24 documented as of this encounter
== END 2025-01-20 11:15 | disposition home or self-care (01) ==
LOC: HO.XRAY 11:14
PROVIDERS: PCP Family Medicine; Visit Provider Student in an Organized Health Care Education/Training Program
DX: Z01.818 Encounter for other preprocedural examination (principal); Z13.1 Encounter for screening for diabetes mellitus; R09.89 Other specified symptoms and signs involving the circulatory and respiratory systems; R05.9 Cough, unspecified
CPT/HCPCS: 36415; 71046; 80048; 83036; 85025; 85610; 85730

== ENCOUNTER → 2025-01-20 11:30 | Outpatient (BNV) | payer OTHER, SELFPAY | PROVIDERS: PCP Family Medicine; Visit Provider Radiology Diagnostic Radiology | DX: R05.9 Cough, unspecified (principal) | CPT/HCPCS: 71046 ==

== ENCOUNTER → 2025-01-21 11:42 | Outpatient (REF) | payer OTHER, SELFPAY ==
--- NOTE | 2025-01-21 11:46 | ECG_ITS ---
Test Reason : Z01.818 Blood Pressure : */* mmHG Vent. Rate : 84 BPM Atrial Rate : 84 BPM P-R Int : 176 ms QRS Dur : 106 ms QT Int : 382 ms P-R-T Axes : 74 -19 67 degrees QTcB Int : 451 ms Normal sinus rhythm Incomplete right bundle branch block Borderline ECG When compared with ECG of 06-Jul-2024 13:29, Minimal criteria for Anterior infarct are no longer Present Referred By: Linda Murphy Electronically Signed By: CECELIA ODELL
--- OUTSIDE RECORDS SUMMARY | 2025-01-21 15:07 | XMS_ITS | Encounter Summary ---
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 PLANTAR FASCITIS * Orthopedic (Routine) - Closed Specialty Diagnoses / Procedures Referred By Rolf pascual Referred To Contact Podiatry / Orthopaedic Surgery Diagnoses Plantar callus Procedures AMB REFERRAL TO PODIATRY Asuncion Bailey MD [address] [phone] Phone: tel: fax: Gutierrez Ruiz DPM [address] [address] Phone: tel: fax: Referral ID Status Reason Start Date Expiration Date V isits Requested Visits Authorized [id number] Closed Consult and Treat 1 Encounter Details Date Type Department Care Team (Late st Contact Info) Description 12/29/2024 1:45 PM EST Office Visit Orthopedic Surgery - [address] [phone] Gutierrez Ruiz DPM [address] [address] Controlled type 2 diabetes with neuropathy (CMS/HCC) [...] Sharp/dull sensation intact, protective sensation intact on [place]. Peripheral neuropathy throughout the feet bilaterally ORTHOPEDIC: [...] Continue with regular appointments with PMD or lacing cutter for tight medical management Patient found to [...] Patient shown different offloading measures (metatarsal pads). [id number]: Destruction of eccrine poroma left foot: Verbal [...] AM EDT Office Visit Orthopedic Surgery - [place] [address] [phone] Gutierrez Ruiz DPM [address] [address] documented as of this encounter Visit Diagnoses Diagnosis Controlled type 2 diabetes with neuropathy (CMS/[facility])- Primary Type II or unspecified type diabetes [...] split. added in this encounter Care Teams Target Network Analyst Relationship Specialty Start Date End Date Linda Murphy DO [address] [place] [address] PCP - General Internal Medicine 04/09/19 documented as of this encounter
--- OUTSIDE RECORDS SUMMARY | 2025-01-21 15:07 | XMS_ITS | Clinical Summary ---
Author Organization [address] [facility] Address [address] [place] [address] Phone Care Team Providers Care Worship Director Name Role Phone Lvelian Linda Juanito RAMESH Primary Care Provider +1- [phone] Allergies No known active allergies Medications acetaminophen [...] 1:45 PM EST Office Visit Orthopedic Surgery [facility] [address] [phone] Gutierrez Ruiz DPM Controlled type 2 diabetes [...] 9:15 AM EDT Office Visit Orthopedic Surgery [facility] [address] [phone] Gutierrez Ruiz DPM [address] [address] Health Maintenance Due Date Last Done Comments [...] patient's age to complete this topic Insurance [facility] Member Subscriber Plan / Payer (Ef fective 2013-Present) Name:Tisha Ruiz Relation to Subscriber:Self Name:Tisha Ruiz Payer ID:[id number] Group ID:[id number] Type:Not on file Address: [facility] [place] [address] Care Teams Worship Director Relationship Specialty Start Date End Date Linda Murphy DO [address] [place] [address] PCP - General Internal Medicine 04/09/19
== END ==
LOC: HO.CARD 11:42
PROVIDERS: PCP Family Medicine; Visit Provider Family Medicine
DX: Z01.818 Encounter for other preprocedural examination (principal)
CPT/HCPCS: 93005

== ENCOUNTER → 2025-01-21 11:46 | Outpatient (BNV) | payer OTHER, SELFPAY | PROVIDERS: PCP Family Medicine; Visit Provider Internal Medicine | DX: I45.10 Unspecified right bundle-branch block (principal) | CPT/HCPCS: 93010 ==

== ENCOUNTER → 2025-02-11 05:47 | Outpatient (BNV) | payer OTHER, SELFPAY | PROVIDERS: PCP Family Medicine; Visit Provider Surgery | DX: Z90.2 Acquired absence of lung [part of] (principal) | CPT/HCPCS: 32663; 99024; 99499 ==

== ENCOUNTER → 2025-02-11 11:15 | Outpatient (BNV) | payer OTHER, SELFPAY | PROVIDERS: Admitting Provider Surgery; PCP Family Medicine; Visit Provider Radiology Diagnostic Radiology | DX: J98.11 Atelectasis (principal) | CPT/HCPCS: 71045 ==

== ENCOUNTER 2025-02-11 12:16 | Outpatient (BNV) | payer OTHER, SELFPAY | END 2025-02-12 07:00 | PROVIDERS: Admitting Provider Surgery; PCP Family Medicine; Visit Provider Radiology Diagnostic Radiology | DX: J43.8 Other emphysema (principal) | CPT/HCPCS: 71045 ==

== ENCOUNTER 2025-02-11 12:16 | Outpatient (BNV) | payer OTHER, SELFPAY | END 2025-02-13 07:00 | PROVIDERS: Admitting Provider Surgery; PCP Family Medicine; Visit Provider Specialist | DX: Z90.2 Acquired absence of lung [part of] (principal) | CPT/HCPCS: 71045 ==

== ENCOUNTER 2025-02-11 12:16 | Inpatient (IN) | payer OTHER, SELFPAY ==
--- OUTSIDE RECORDS SUMMARY | 2025-01-20 11:25 | XMS_ITS | Encounter Summary ---
Author Organization [employer] [facility] Address 75 [facility] 7t [place] [address] Care Team Providers Care Utility Bill Collection Clerk Name Role Phone Linda Murphy DO Primary Care Provider Dellogono Neri PharmD Unavailable Unavail able Antionette Murphy PharmD Unavailable [phone] Reason for Visit * Reason Comments Med Refill Encounter Details Date Type Department Care Team (Late st Contact Info) Description 04/05/2023 Refill [facility] [address] [place] [address] Linda Murphy DO [address] [place] [address] Social History Tobacco Use Types Packs/Day Years [...] Care Team (Late st Contact Info) Description 01/27/2025 11:15 AM EDT Office [facility] [place] [address] Linda Murphy DO [facility] [place] [address] 02/09/2025 1:00 PM EDT Clinical Support [facility] [address] No Lopez, RN documented as of this [...] documented as of this encounter Care Teams Utility Bill Collection Clerk Relationship Specialty Start Date End Date Linda Murphy DO [facility] [place] [address] PCP - General Family Medicine 11/24/12 Neri Yang, PharmD [address] [place] [address] Pharmacist Internal Medicine 11/23/22 10/17/23 Antionette Murphy, EricD [address] [place] [address] Pharmacist Internal Medicine 07/15/24 documented as of this encounter
--- OUTSIDE RECORDS SUMMARY | 2025-01-20 11:25 | XMS_ITS | Encounter Summary ---
Author Organization [employer] Address [address] [facility] 7t [place] [address] Care Team Providers Care Cushion Cover Inspector Name Role Phone Linda Murphy DO Primary Care Provider [phone] Dellogono Neri PharmD Unavailable Unavail able Antionette Murphy PharmD Unavailable Reason for Visit * Reason Comments Med Refill Encounter Details Date Type Department Care Team (Late Contact Info) Description 04/10/2023 Refill [facility] MED & PEDS [address] [place] [address] Linda Murphy DO [address] [facility] [place] [address] Social History Tobacco Use Types Packs/Day Years [...] Department Care Team (Late Contact Info) Description 01/27/2025 11:15 AM EDT Office Visit [facility] [place] [address] [place] [address] 02/09/2025 1:00 PM EDT Clinical Support [facility] [place] [address] No Lopez, KRYSTYNA documented as of this [...] documented as of this encounter Care Teams Cushion Cover Inspector Relationship Specialty Start Date End Date Linda Murphy [place] [address] PCP - General Family Medicine 11/24/12 Neri Yang, PharmD [facility] [place] [address] Pharmacist Internal Medicine 11/23/22 10/17/23 Antionette Murphy PharmD [facility] [place] [address] Pharmacist Internal Medicine 07/15/24 documented as of this encounter
--- OUTSIDE RECORDS SUMMARY | 2025-01-20 11:26 | XMS_ITS | Encounter Summary ---
Author Organization [employer] Address 75 [facility] 7t [place] [address] Care Team Providers Care National Accounts Recruiter Name Role Phone Linda Murphy DO Primary Care Provider [phone] Antionette Murphy PharmD Unavailable [phone] Reason for Visit * Reason Comments Med Refill Encounter Details Date Type Department Care Team ([facility] st Contact Info) Description 12/23/2024 Refill [facility] 230 [place] [address] Linda Murphy DO 230 [place] [address] Chronic GERD Social History Tobacco Use Types [...] Description 01/27/2025 11:15 AM EDT Office Visit [address] [address] Linda Murphy DO [address] [place] [address] 02/09/2025 1:00 PM EDT Clinical Support [address] [address] No Lopez, KRYSTYNA documented as of this [...] documented as of this encounter Care Teams National Accounts Recruiter Relationship Specialty Start Date End Date Linda Murphy DO [address] [place] [address] PCP - General Family Medicine 11/24/12 Antionette Murphy PharmD [address] [place] [address] Pharmacist Internal Medicine 07/15/24 documented as of this encounter
--- OUTSIDE RECORDS SUMMARY | 2025-01-20 11:26 | XMS_ITS | Encounter Summary ---
Author Organization [employer] Address 75 [facility] 7t [place] [address] Care Team Providers Care Retail Asset Protection Specialist Name Role Phone Linda Murphy DO Primary Care Provider [phone] Antionette Murphy PharmD Unavailable [phone] Reason for Visit * Reason Comments Med Refill Encounter Details Date Type Department Care Team ([facility] st Contact Info) Description 02/23/[address] [facility] MEDICINE 230 [place] [address] Linda Murphy DO 230 [place] [address] Chronic obstructive pulmonary disease, unspecified COPD type [...] Description 01/27/2025 11:15 AM EDT Office Visit [address] [address] Linda Murphy DO [address] [place] [address] 02/09/2025 1:00 PM EDT Clinical Support [address] [address] No Lopez, KRYSTYNA documented as of this [...] as of this encounter Care Teams Retail Asset Protection Specialist Relationship Specialty Start Date End Date Linda Murphy DO [address] [place] [address] PCP - General Family Medicine 11/24/12 Antionette Murphy PharmD [address] [place] [address] Pharmacist Internal Medicine 07/15/24 documented as of this encounter
--- OUTSIDE RECORDS SUMMARY | 2025-01-20 11:26 | XMS_ITS | Encounter Summary ---
Author Organization [employer] [facility] Address 75 [facility] 7t [place] [address] Care Team Providers Care Barrel Raiser Name Role Phone Linda Murphy DO Primary Care Provider Dellogla Neri PharmD Unavailable Unavail able Antionette Murphy PharmD Unavailable Reason for Visit * Reason Comments Med Refill Encounter Details Date Type Department Care Team (Late Contact Info) Description 07/08/2023 Refill [facility] MEDICINE [address] [place] [address] Linda Murphy DO 230 [place] [address] Pain Social History Tobacco Use Types Packs/Day [...] Description 01/27/2025 11:15 AM EDT Office Visit [facility] MED[facility]INE [address] [place] [address] Linda Murphy DO [address] [place] [address] 02/09/2025 1:00 PM EDT Clinical Support [facility]INE [address] [place] [address] No Lopez, RN documented as of this [...] documented as of this encounter Care Teams Barrel Raiser Relationship Specialty Start Date End Date Lnida Murphy DO [address] [place] [address] PCP - General Family Medicine 11/24/12 Neri Yang, PharmD [address] [place] [address] Pharmacist Internal Medicine 11/23/22 10/17/23 Antionette Murphy PharmD [address] [place] [address] Pharmacist Internal Medicine 07/15/24 documented as of this encounter
--- OUTSIDE RECORDS SUMMARY | 2025-01-20 11:26 | XMS_ITS | Encounter Summary ---
Author Organization [employer] Address [address] [facility] 7t [place] [address] Care Team Providers Care Upholsterer Outside Name Role Phone Katherine Linda Primary Care Provider + [phone] Antionette Murphy PharmD Unavailable [phone] Reason for Visit * Reason Onset Date Comments Recommend CLINICAL SECRETARY Tier 2 01/07/2025 Encounter Details Date Type Department Care Team ([facility] Contact Info) Description 01/07/2025 Telephone [facility] MEDICINE 230 [place] [address] No Lopez, KRYSTYNA Recommend CLINICAL SECRETARY Tier 2 Social History Tobacco Use Types [...] RN - 01/07/2025 7:26 AM EST What CLINICAL SECRETARY Tier would you like this patient to be? I recommend Tier 2, please let me know if you agree or would rather patient be in another CLINICAL SECRETARY Tier. Tier 1 = HIGH RISK, Monthly CLINICAL SECRETARY visits Tier 2 = MODerate RISK, Q3 Month visits Tier 3 = LOW RISK = Q4-6 month visits documented in this encounter Plan of Treatment Upcoming Encounters Date Type Department Care Team (Late st Contact Info) Description 01/27/2025 11:15 AM EDT Office Visit [address] [address] Linda Murphy DO [address] [place] [address] 02/09/2025 1:00 PM EDT Clinical Support [facility] MEDICINE [address] [place] [address] No Lopez, RN documented as of this [...] documented as of this encounter Care Teams Upholsterer Outside Relationship Specialty Start Date End Date Linda Murphy DO 230 [place] [address] PCP - General Family Medicine 11/24/12 Antionette Murphy PharmD 230 [place] [address] Pharmacist Internal Medicine 07/15/24 documented as of this encounter
--- OUTSIDE RECORDS SUMMARY | 2025-01-20 11:26 | XMS_ITS | Encounter Summary ---
Author Organization [employer] Address 75 [facility] 7t [place] [address] Care Team Providers Care Placement Coordinator Name Role Phone Linda Murphy DO Primary Care Provider [phone] Antionette Murphy PharmD Unavailable [phone] Reason for Visit * Reason Comments Med Refill Encounter Details Date Type Department Care Team ([facility] st Contact Info) Description 07/03/2024 Refill [facility] MEDICINE 230 [place] [address] Linda Murphy DO 230 [place] [address] Tobacco dependence Social History Tobacco Use Types [...] Description 01/27/2025 11:15 AM EDT Office Visit [address] [address] Linda Murphy DO [address] [place] [address] 02/09/2025 1:00 PM EDT Clinical Support [address] [address] No Lopez RN documented as of this [...] documented as of this encounter Care Teams Placement Coordinator Relationship Specialty Start Date End Date Linda Murphy DO [address] [place] [address] PCP - General Family Medicine 11/24/12 Antionette Murphy PharmD [address] [place] [phone] Pharmacist Internal Medicine 07/15/24 documented as of this encounter
--- OUTSIDE RECORDS SUMMARY | 2025-01-20 11:26 | XMS_ITS | Encounter Summary ---
Author Organization [employer] Address [address] [place] [address] 7t [place] [address] Care Team Providers Care Supervisor Ore Dressing Name Role Phone Lnida Murphy DO Primary Care Provider + [phone] DelNeri zavala PharmD Unavailable Unavail able Antionette Murphy PharmD Unavailable [phone] Reason for Referral * Imaging (Routine) - Canceled Specialty Diagnoses / Procedures Referred By Rolf pascual Referred To Contact Radiology Diagnoses Hilar mass Procedures CT Chest w/o Contrast Nora Astudillo FNP 230 [place] [address] Phone: tel: fax: [address] Phone: tel: fax: Referral ID Status Reason Start Date Expiration Date V isits Requested Visits Authorized [id number] Canceled 10/11/2023 10/10/2024 1 1 Encounter Details Date Type Department Care Team (Late st Contact Info) Description 10/11/2023 Orders Only [facility] CHC MED & PEDS [address] [place] [address] Nora Astudillo FNP 230 [place] [address] Hilar mass (Primary Dx) Social History Tobacco [...] Description 01/27/2025 11:15 AM EDT Office Visit [facility] MEDICINE [address] [place] [address] Linda Murphy DO [address] [place] [address] 02/09/2025 1:00 PM EDT Clinical Support [facility] MEDICINE [address] [place] [address] No Lopez RN Scheduled Orders Name Type [...] documented as of this encounter Care Teams Supervisor Ore Dressing Relationship Specialty Start Date End Date Linda Murphy DO 230 [place] [address] PCP - General Family Medicine 11/24/12 Neri Yang, PharmD 230 [place] [address] Pharmacist Internal Medicine 11/23/22 10/17/23 Antionette Murphy PharmD 230 [place] [address] Pharmacist Internal Medicine 07/15/24 documented as of this encounter
--- OUTSIDE RECORDS SUMMARY | 2025-01-20 11:26 | XMS_ITS | Encounter Summary ---
Author Organization [employer] Address 75 [facility] 7t [place] [address] Care Team Providers Care Outsoles Channel Opener Name Role Phone Linda Murphy DO Primary Care Provider [phone] Antionette Murphy PharmD Unavailable [phone] Reason for Visit * Reason Onset Date Comments Med Refill 12/18/2024 Encounter Details Date Type Department Care Team (Late st Contact Info) Description 12/18/2024 Refill [facility] MEDICINE 230 [place] [address] Linda Murphy DO 230 [place] [address] Social History Tobacco Use Types Packs/Day Years [...] Description 01/27/2025 11:15 AM EDT Office Visit [address] [address] Linda Murphy DO [address] [place] [address] 02/09/2025 1:00 PM EDT Clinical Support [address] [address] No Lopez, KRYSTYNA documented as of this [...] documented as of this encounter Care Teams Outsoles Channel Opener Relationship Specialty Start Date End Date Linda Murphy DO [address] [place] [address] PCP - General Family Medicine 11/24/12 Antionette Murphy PharmD [address] [place] [phone] Pharmacist Internal Medicine 07/15/24 documented as of this encounter
--- OUTSIDE RECORDS SUMMARY | 2025-01-20 11:26 | XMS_ITS | Encounter Summary ---
Author Organization [employer] Address 75 [facility] 7t [place] [address] Care Team Providers Care Precast Concrete Products Installer Name Role Phone Linda Murphy DO Primary Care Provider [phone] Antionette Murphy PharmD Unavailable [phone] Reason for Visit * Reason Onset Date Comments Durable Medical Equipment 03/06/2024 Encounter Details Date Type Department Care Team ([facility] st Contact Info) Description 03/06/2024 Telephone [facility] MEDICINE 230 [place] [address] Linad Murphy DO 230 [place] [address] Durable Medical Equipment Social History Tobacco Use [...] Description 01/27/2025 11:15 AM EDT Office Visit [address] [address] Linda Murphy DO [address] [place] [address] 02/09/2025 1:00 PM EDT Clinical Support [address] [address] No Lopez, RN documented as of this encounter Goals Goal Patient Goal Type Associated Problems Recent Progress Patient-Stated? Author Hemoglobin A1c < 7 Result Component 7.4(08/13/2024 3:26 PM EDT) No Neri Yang, Kaiden documented as of this encounter Visit Diagnoses Not on filedocumented in this encounter Additional Health Concerns Assessment Noted Time PHQ-9 Depression Total Score: 0 02/27/20 23 11:42 AM EDT documented as of this encounter Care Teams Precast Concrete Products Installer Relationship Specialty Start Date End Date Linda Murphy DO 230 [place] [address] PCP - General Family Medicine 11/24/12 Antionette Murphy PharmD 230 [place] [address] Pharmacist Internal Medicine 07/15/24 documented as of this encounter
--- OUTSIDE RECORDS SUMMARY | 2025-01-20 11:26 | XMS_ITS | Encounter Summary ---
Author Organization [employer] Address [address] [facility] [address] 7t [place] [address] Care Team Providers Care Home Worker Name Role Phone Joelle Murphyfer Primary Care Provider + [phone] Antionette Murphy PharmD Unavailable [phone] Encounter Details Date Type Department Care [...] Description 01/27/2025 11:15 AM EDT Office Visit [address] [address] Linda Murphy DO [address] [place], [place] [phone] 02/09/2025 1:00 PM EDT Clinical Support [address] [phone] No Lopez RN documented as of this [...] EST Narrative 01/06/2025 9:00 AM EST ? [facility] ?[address] ?[place] [address] ?XRay Report ? Signed ? Patient: Kiniel,Tisha ?MR#: [id number] ?? 61 ? : 1970 ?Acct:[id number] ? Age/Sex: 54 / F ?ADM Date: 01/05/25 ? Loc: HO.SSS ? Attending Dr: Mario Hoyt MD ? Ordering Physician: Rogelio Sales ?? Date of Service: 01/05/25 ?? Procedure(s): XR chest 1V ?? Accession Number(s): [id number] ? cc: Linda Murphy DO; Rogelio Sales [...] ??Dillon Botello MD ??01/06/2025 08:57 AM EST ?? RP ? Dictated By: ?Dillon Botello MD ? Signed By: ?<Electronically signed by Dillon Botello MD in OV> ?01/06/25 0857 ? DD/ 1241 ? TD/TT: 01/05/25 1241 ? Radio Reporter: ? Procedure Note Elena Roth - 01/06/[address] [address] XRay Report Signed Patient: Ayanna RuizElmerSilva#: [id number] 61 : 1970Acct:[id number] Age/Sex: 54 / FADM Date: 01/05/25 Loc: HO.SSS Attending Dr: Mario Hoyt MD Ordering Physician: Rogelio Sales Date of Service: 01/05/25 Procedure(s): XR chest 1V Accession Number(s): [id number] cc: Linda Murphy DO; Rogelio Sales EXAMINATION: [...] 01/06/25 0857 DD/ 1241 TD/TT: 01/05/25 1241 Radio Reporter: [facility] External Provider IMG XR PROCEDURES Final Result * XR Chest 1 View (01/05/2025 11:45 AM EST) Anatomical Region Laterality Modality Chest Radiographic Rosaura ging 01/05/2025 11:4 5 AM EST Narrative 01/05/2025 11:56 AM EST ? [facility] ?[address] ?[place] [address] ?XRay Report ? Signed ? Patient: Tisha Ruiz ?MR#: [id number] ?? 61 ? : 1970 ?Acct:[id number] ? Age/Sex: 54 / F ?ADM Date: 02/25/25 ? Loc: HO.SSS ? Attending Dr: Mario Hoyt MD ? Ordering Physician: Rogelio Sales ?? Date of Service: 01/05/25 ?? Procedure(s): XR chest 1V ?? Accession Number(s): [id number] ? cc: Linda Murphy DO; Rogelio Sales [...] DD/ 1145 ? TD/TT: 01/05/25 1145 ? Radio Reporter: ? Procedure Note Elena Roth - 01/05/[address] [address] XRay Report Signed Patient: Ayanna RuiznMR#: [id number] 61 : 1970Acct:[id number] Age/Sex: 54 / FADM Date: 01/05/25 Loc: .SSS Attending Dr: Mario Hoyt MD Ordering Physician: Rogelio Sales Date of Service: 01/05/25 Procedure(s): XR chest 1V Accession Number(s): [id number] cc: Linda Murphy DO; Rogelio Sales EXAMINATION: [...] MD 01/05/2025 11:54 AM EST Dictated By: Lxea Lei MD Signed By: <Electronically signed by Lexa Lei MD in OV> 01/05/25 1154 DD/ 1145 TD/TT: 01/05/25 1145 Radio Reporter: [facility] External Provider IMG XR PROCEDURES Final Result * Gross and Microscopic Level 4 (01/05/2025 10:57 AM EST) 01/05/2025 10:5 7 AM EST 01/05/2025 11:19 AM EST [facility] - 01/07/2025 2:12 PM EST ----- ------- Name: Tisha Ruiz ? Age/Sex: 54/F ? : 1970 Unit#: [id number] ?? Attend Dr: Mario Hoyt MD ?Re01/05/25 ?Status: DEP SDC ? Location: HO.SSS ?Disch: ? ----- ------- SPEC : [id number] ?RECD: 01/05/25-1119 ? STATUS: ??SOUT ? REQ NUM: [id number] ? HILARY: 01/05/25-1057 ? SUBM DR: Rogelio [...] ? Age/Sex: 54/F ? : 1970 Unit#: [id number] ?? Attend Dr: Mario Hoyt MD ?Re01/05/25 ?Status: DEP SDC ? Location: HO.SSS ?Disch: ? ----- ------- SPEC : [id number] ?RECD: 01/05/25-1118 ? STATUS: ??SOUT ? REQ NUM: [id number] ? HILARY: 01/05/25-1056 ? SUBM DR: Rogelio [...] Copies To: ?? Linda Murphy DO ?? [facility] ?? [address] ?? [place] [address] ?? [phone] ?? Mario Hoyt MD ?? [facility] ?? [address] ?? [place] [address] ?? [phone] ?? [email or web address] ?? Rogelio Sales ?? [address] [facility] ?? [place] [address] ?? [phone] ?? [email or web address] ----- ------- Signed (signature on file) Anuradha Bhavana 01/06/251717 ? ----- ------- ? END OF REPORT ? us Generic External Data Provider LAB CYTOLOGY ANDERSON VALENTINO Final Result [facility] [address] [facility] [place] [address] [phone] * CT Biopsy Lung Left (01/05/2025 10:18 AM EST) Anatomical Region Laterality Modality Computed Tomogra phy 01/05/2025 10:1 8 AM EST Narrative 01/06/2025 2:23 PM EST ? [facility] ?[address] ?[place] [address] ? CT Scan Report ? Signed ? Patient: Kiniel,Tisha ?MR#: [id number] ?? 61 ? : 1970 ?Acct:[id number] ? Age/Sex: 54 / F ?ADM Date: 01/05/25 ? Loc: HO.SSS ? Attending Dr: Mario Hoyt MD ? Ordering Physician: Mario Hoyt MD ?? Date of Service: 01/05/25 ?? Procedure(s): CT biopsy lung LT ?? Accession Number(s): [id number] ? cc: Linda Murphy DO; Mario Hoyt MD ? Report Number: ?? [id number]: Total DLP = ??490.00 mGy-cm ?? 54-year-old [...] DD/ 1018 ? TD/TT: 01/05/25 1119 ? Radio Reporter: ? Procedure Note Gonzalez, Image - 01/06/[address] [address] [address] Scan Report Signed Patient: Ayanna RuizNDR#: [id number] 61 : 1970Acct:[id number] Age/Sex: 54 / FADM Date: 01/05/25 Loc: HO.JERI Attending Dr: Mario Hoyt MD Ordering Physician: Mario Hoyt MD Date of Service: 01/05/25 Procedure(s): CT biopsy lung LT Accession Number(s): [id number] cc: Linda Murphy DO; Mario Hoyt MD Report Number: [id number]: Total DLP = 490.00 mGy-cm 54-year-old female [...] 01/06/25 1423 DD/ 1018 TD/TT: 01/05/25 1119 Radio Reporter: us [facility] External Provider IMG CT PROCEDURES Final Result * (ABNORMAL) Glucose, Whole Blood (01/05/2025 9:48 AM EST) Glucose, Whole Blood 149(H) 60 - 115 mg/dL [facility] Comment:METER #: [id number] 01/05/2025 9:48 AM EST 01/05/2025 9:53 AM EST Generic External Data Provider LAB BLOOD ORDERAB LES Final Result Performing Organization Address City/State/[facility] Co de Phone Number [facility] [address] [place] [phone] documented in this encounter Visit Diagnoses Not on filedocumented in this encounter Additional Health Concerns Assessment Noted Time PHQ-9 Depression Total Score: 0 02/27/20 23 11:42 AM EDT documented as of this encounter Care Teams Home Worker Relationship Specialty Start Date End Date Linda Murphy DO [address] [place] [address] PCP - General Family Medicine 11/24/12 Antionette Murphy PharmD [address] [place] [address] Pharmacist Internal Medicine 07/15/24 documented as of this encounter
--- OUTSIDE RECORDS SUMMARY | 2025-01-20 11:26 | XMS_ITS | Encounter Summary ---
Author Organization [employer] Address 75 [facility] 7t [place] [address] Care Team Providers Care Venture Capitalist Name Role Phone Linda Murphy DO Primary Care Provider + [phone] Antionette Murphy PharmD Unavailable [phone] Encounter Details Date Type Department Care Team (Latest Contact Info) Description 01/19/2025 Travel Social History Tobacco Use Types Packs/Day Years Used Date Smoking Tobacco: Every Day Cigarettes Passive Smoke Exposure: Current Smokeless Tobacco: Never Comments:Went from 2 packs d aily to 3 cigarettes daily Alcohol Use Standard Drinks/Week Comments Never 0 (1 standard drink = 0.6 oz pur e alcohol) Depression Answer Date Recorded Patient Health Questionnaire-9 Score 0 01/19/2025 Patient Health Questionnaire-9 Score 0 01/19/2025 Last PHQ-9: Questionnaire Data Not on file 0 01/19/2025 Housing Stability Answer Date Recorded What is [...] Date Recorded Patient Health Questionnaire-2 Score 0 01/19/2025 Internet Access Answer Date Recorded Internet Access Q1 Yes 01/19/2025 Internet Access Q2 Not on file 01/19/2025 Comments No Sex and Gender Information Value [...] Description 01/27/2025 11:15 AM EDT Office Visit [facility] MEDICINE [address] [place] [address] Linda Murphy DO [address] [place] [address] 02/09/2025 1:00 PM EDT Clinical Support [address] [address] No Lopez, KRYSTYNA documented as of this encounter Goals Goal Patient Goal Type Associated Problems Recent Progress Patient-Stated? Author Hemoglobin A1c < 7 Result Component 7.4(08/13/2024 3:26 PM EDT) No Neri Yang, PharmD documented as of this encounter Visit Diagnoses Not on filedocumented in this encounter Additional Health Concerns Assessment Noted Time PHQ-9 Depression Total Score: 0 01/20/20 25 12:15 PM EDT documented as of this encounter Care Teams Venture Capitalist Relationship Specialty Start Date End Date Linda Murphy DO [address] [place] [address] [phone] PCP - General Family Medicine 11/24/12 Antionette Murphy PharmD [address] [place] [address] [phone] Pharmacist Internal Medicine 07/15/24 documented as of this encounter
--- OUTSIDE RECORDS SUMMARY | 2025-01-20 11:26 | XMS_ITS | Encounter Summary ---
Author Organization [employer] Address [address] [place] [address] Care Team Providers Care Clinical Rehabilitation Aide Name Role Phone Linda Murphy DO Primary Care Provider [phone] Antionette Murphy PharmD Unavailable [phone] Reason for Visit * Reason Onset Date Comments Medication Question 11/13/2023 Encounter Details Date Type Department Care Team ([facility] st Contact Info) Description 11/13/2023 Telephone [facility] [address] [place] [address] Linda Murphy DO [address] [place] [address] Medication Question Social History Tobacco Use Types [...] 11/08 Physical appointment. Please contact pt at [phone] documented in this encounter Plan of Treatment Upcoming Encounters Date Type Department Care Team (Late st Contact Info) Description 01/27/2025 11:15 AM EDT Office Visit [address] [address] Linda Murphy DO [address] [place] [address] 02/09/2025 1:00 PM EDT Clinical Support [facility] [address] [place] [address] No Lopez, KRYSTYNA documented as of this [...] as of this encounter Care Teams Clinical Rehabilitation Aide Relationship Specialty Start Date End Date Linda Murphy DO [address] [place], [place] [phone] PCP - General Family Medicine 11/24/12 Antionette Murphy PharmD [address] [place] [address] Pharmacist Internal Medicine 07/15/24 documented as of this encounter
--- OUTSIDE RECORDS SUMMARY | 2025-01-20 11:26 | XMS_ITS | Encounter Summary ---
Author Organization [employer] Address [address] [facility] [address] [address] 7[address] [place] [address] Care Team Providers Care Data Management Name Role Phone Linda Murphy DO Primary Care Provider [phone] Dellogla Neri PharmD Unavailable Unavail able Antionette Murphy PharmD Unavailable Reason for Visit * Reason Onset Date Comments triage 11/14/2022 Encounter Details Date Type Department Care Team (Late st Contact Info) Description 11/14/2022 Telephone [facility] [address] [place] [address] Linda Murphy DO [address] [place], [place] [phone] triage Social History Tobacco Use Types Packs/Day [...] EST Triage call Pt reports seen in [facility] today. Pt reports bruising on bilateral [...] become worse * Telephone Encounter - Arden August - 11/14/2022 2:21 PM EST Symptoms: Bruises [...] Description 01/27/2025 11:15 AM EDT Office Visit [address] [address] Linda Murphy DO [address] [place] [address] 02/09/2025 1:00 PM EDT Clinical Support [address] [address] No Lopez RN documented as of this encounter Visit Diagnoses Not on filedocumented in this encounter Care Teams Data Management Relationship Specialty Start Date End Date Linda Murphy DO [address] [place] [address] PCP - General Family Medicine 11/24/12 Neri Yang PharmD [address] [place] [address] Pharmacist Internal Medicine 11/23/22 10/17/23 Antionette Murphy, EricD [address] [place] [address] Pharmacist Internal Medicine 07/15/24 documented as of this encounter
--- OUTSIDE RECORDS SUMMARY | 2025-01-20 11:26 | XMS_ITS | Encounter Summary ---
Author Organization [employer] Address [address] [place] [address] Care Team Providers Care Web Page Developer Name Role Phone Linda Murphy DO Primary Care Provider [phone] Antionette Murphy PharmD Unavailable [phone] Reason for Visit * Reason Comments Med Refill Encounter Details Date Type Department Care Team (Late st Contact Info) Description 12/21/2024 Refill [facility] [address] [place] [address] Linda Murphy DO [address] [facility] [place] [address] Chronic low back pain, unspecified back pain [...] Description 01/27/2025 11:15 AM EDT Office Visit [facility] [address] [place] [phone] Linda Murphy DO [address] [place] [address] 02/09/2025 1:00 PM EDT Clinical Support [address] [address] No Lopez, RN documented as of this [...] documented as of this encounter Care Teams Web Page Developer Relationship Specialty Start Date End Date Linda Murphy DO [address] [place] [address] PCP - General Family Medicine 11/24/12 Antionette Murphy, PharmD [address] [place] [address] Pharmacist Internal Medicine 07/15/24 documented as of this encounter
--- OUTSIDE RECORDS SUMMARY | 2025-01-20 11:26 | XMS_ITS | Encounter Summary ---
Author Organization [employer] Address [address] [facility] 7t [place] [address] Care Team Providers Care Traffic Control Supervisor Name Role Phone Linda Murphy DO Primary Care Provider [phone] Antionette Murphy PharmD Unavailable [phone] Encounter Details Date Type Department Care Team ([facility] st Contact Info) Description 01/19/2025 Telephone [facility] [address] [place] [address] Linda Murphy DO [address] [place] [address] Social History Tobacco Use Types Packs/Day Years [...] encounter Miscellaneous Notes * Telephone Encounter - Linda Murphy DO - 01/19/2025 1:39 PM EDT Spoke with Alexandre from Dr. Hoyt's office re: pt's lobectomy. Alexandre advised that she will be scheduled within the next 3 weeks and pt will be contacted by neurosurgical nurse. Pt will need medical clearance with PCP prior to procedure. Preop labs and EKG ordered at visit this morning. Will have team RN scheduled preop visit. Pt notified and agrees with plans. documented in this encounter Plan of Treatment Upcoming Encounters Date Type Department Care Team (Late st Contact Info) Description 01/27/2025 11:15 AM EDT Office Visit [facility] [address] [place] [phone] Linda Murphy DO [address] [place] [address] 02/09/2025 1:00 PM EDT Clinical Support [facility] [address] [place] [address] No Lopez, KRYSTYNA documented as of this [...] documented as of this encounter Care Teams Traffic Control Supervisor Relationship Specialty Start Date End Date Linda Murphy DO [address] [place] [address] PCP - General Family Medicine 11/24/12 Antionette Murphy PharmD [address] [place] [address] Pharmacist Internal Medicine 07/15/24 documented as of this encounter
--- OUTSIDE RECORDS SUMMARY | 2025-01-20 11:26 | XMS_ITS | Encounter Summary ---
Author Organization [employer] Address [address] [facility] 7t [place] [address] Care Team Providers Care Industrial Photographer Name Role Phone Linda Murphy DO Primary Care Provider [phone] Antionette Murphy PharmD Unavailable [phone] Reason for Visit * Reason Onset Date Comments Med Refill 12/18/2024 Encounter Details Date Type Department Care Team (Late st Contact Info) Description 12/18/2024 Refill [facility] [address] [place] [address] Linda Murphy DO [address] [place] [address] Type 2 diabetes mellitus without complication, without long-term current use of insulin ([facility]); Type 2 diabetes mellitus with other specified complication, unspecified whether care home insulin use ([facility]); Chronic obstructive pulmonary disease, unspecified COPD type ([facility]) Social History Tobacco Use Types Packs/Day Years [...] the past 12 months, has t he [employer], gas, oil or water [employer] threatened to shut off services in your [...] Description 01/27/2025 11:15 AM EDT Office Visit [address] [address] Linda Murphy DO [address] [place] [address] 02/09/2025 1:00 PM EDT Clinical Support [address] [address] No Lopez RN documented as of this encounter Goals Goal Patient Goal Type Associated Problems Recent Progress Patient-Stated? Author Hemoglobin A1c < 7 Result Component 7.4(08/13/2024 3:26 PM EDT) No Neri Yang PharmD documented as of this encounter Visit Diagnoses Diagnosis Type 2 diabetes mellitus without complication, without long-term current use of insulin ([facility]) Type 2 diabetes mellitus with other specified complication, unspecified whether care home insulin use ([facility]) Chronic obstructive pulmonary disease, unspecified COPD type ([facility]) documented in this encounter Additional Health Concerns Assessment Noted Time PHQ-9 Depression Total Score: 0 04/18/20 23 11:42 AM EDT documented as of this encounter Care Teams Industrial Photographer Relationship Specialty Start Date End Date Linda Murphy DO [address] [place] [address] PCP - General Family Medicine 11/24/12 Antionette Murphy PharmD [address] [place] [address] Pharmacist Internal Medicine 07/15/24 documented as of this encounter
--- OUTSIDE RECORDS SUMMARY | 2025-01-20 11:26 | XMS_ITS | Encounter Summary ---
Author Organization [employer] Address [address] [facility] 7t [place] [address] Care Team Providers Care Bottle Washer Name Role Phone Linda Murphy DO Primary Care Provider [phone] Antionette Murphy PharmD Unavailable [phone] Reason for Visit * Reason Comments Med Refill Encounter Details Date Type Department Care Team ([facility] st Contact Info) Description 11/24/2023 Refill [facility] [address] [place] [address] Linda Murphy DO [address] [place] [address] Social History Tobacco Use Types Packs/Day Years [...] Description 01/27/2025 11:15 AM EDT Office Visit [facility] [address] [place] [address] Linda Murphy DO [address] [place] [address] 02/09/2025 1:00 PM EDT Clinical Support [address] [address] No Lopez RN documented as of this [...] documented as of this encounter Care Teams Bottle Washer Relationship Specialty Start Date End Date Linda Murphy DO [address] [place] [address] PCP - General Family Medicine 11/24/12 Antionette Murphy PharmD [address] [place] [phone] Pharmacist Internal Medicine 07/15/24 documented as of this encounter
--- OUTSIDE RECORDS SUMMARY | 2025-01-20 11:26 | XMS_ITS | Clinical Summary ---
Author Organization [employer] Address [address] [place] [address] Care Team Providers Care Furnace Tapper Name Role Phone Linda Murphy DO Primary Care Provider [phone] PuAntionette ellison PharmD Unavailable Allergies Active Allergy Reactions Criticality Noted Date [...] complication, without long-term current use of insulin ([facility]) Inject 1 each under the [...] complication, without long-term current use of insulin ([facility]) USE EVERY DAY UP TO TWICE DAILY 100 each 08/12/20 24 Active glucose blood (FREESTYLE LITE) test stripIndicatio ns:Type 2 diabetes mellitus without complication, without long-term current use of insulin ([facility]) Use to check blood sugar up to twice daily 100 each 08/12/20 24 Active TRUEplus Lancets 33G miscIndication s:Type 2 diabetes mellitus without complication, without long-term current use of insulin ([facility]) Use to check blood sugar up to twice daily 100 each 08/12/20 24 Active semaglutide (Rybelsus) 7 MG tablet TAKE 1 TABLET EVERY MORNING, 30 MINUTES BEFORE A MEAL ICD10= 30 tablet 5 08/26/20 24 Active Aspirin Low Dose 81 MG EC tabletIndicati ons:Type 2 diabetes mellitus with other specified complication, unspecified whether shelter insulin use ([facility]) TAKE 1 TABLET BY MOUTH EVERY EVENING 90 tablet 1 09/02/20 24 Active metFORMIN XR (Glucophage-XR ) 500 MG 24 hr tabletIndicati ons:Type 2 diabetes mellitus without complication, without long-term current use of insulin ([facility]) TAKE 2 TABLETS BY MOUTH [...] time. 30 patch 1 12/23/19 25 Active Ascorbic Acid (vitamin C) 250 MG [...] NOON 90 tablet 3 12/23/19 25 Active traMADol (Ultram) 50 MG tabletIndicati ons:Chronic low back pain, unspecified back pain laterality, unspecified whether sciatica present Take 1 tablet (50 mg) by mouth every 8 (eight) hours if needed for severe pain for up to 28 days. Do not start before January 21, 2025. 84 tablet 01/22/20 25 025 Active guaiFENesin (Mucinex) 600 MG 12 hr tablet Take 2 tablets (1,200 mg) by mouth if needed in the morning and at bedtime for cough or congestion. Do not crush, chew, or split. 30 tablet 01/20/20 25 026 Active lisinopril 2.5 MG tablet TAKE 1 [...] 180 tablet 3 01/24/20 24 025 Discontinued traMADol (Ultram) 50 MG tabletIndicati ons:Chronic low back pain, unspecified back pain laterality, unspecified whether sciatica present TAKE 1 TABLET BY MOUTH EVERY 8 HOURS NEEDED FOR SEVERE PAIN 84 tablet 10/14/20 24 025 Discontinued traMADol (Ultram) 50 MG tabletIndicati ons:Chronic low back pain, unspecified back pain laterality, unspecified whether sciatica present TAKE 1 TABLET BY MOUTH EVERY 8 HOURS NEEDED FOR SEVERE PAIN 84 tablet 12/23/19 25 025 Discontinued(R eorder (will not trigger notification to Pharmacy)) Active Problems Problem Noted Date Diagnosed Date Toenail avulsion, initial encounter 08/26/2024 Assessment & Plan (08/26/2024 11:44 AM EDT): - partial, no evidence of nail bed infection or ingrown toenail - advised to keep area clean and dry and avoid trauma/more instrumentation of the toenail - 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 to core layer machine operator - TB UTD Plantar callus 08/26/2024 Assessment & Plan (08/26/2024 11:45 AM EDT): - non-tender, refer to podiatry for further f/u - advised regarding routine foot exam, re consult PRN Onychomycosis of multiple to enails with type 2 diabetes mellitus ([facility]) 08/26/2024 Assessment & Plan (08/26/2024 11:45 AM [...] -f/u with pain mgmt prn -advised contact [facility] if sx change or worsen Leukocytosis 11/08/2023 [...] regular BS monitoring -re-referred to [facility] pharmacist for eval -cont statin and low-dose [...] Encounters Date Type Department Care Team Description 01/19/2025 11:45 AM EDT Telemedicine [facility] MEDICINE [address] [place] [address] Linda Murphy DO Chest congestion (Primary Dx); Preop examination 01/19/2025 Telephone [facility] [address] [place] [address] Linda Murphy DO 01/19/2025 Travel 01/18/2025 Refill [facility] [address] [place] [address] Linda Murphy DO Chronic low back pain, unspecified back pain laterality, unspecified whether sciatica present 01/12/[address] [address] No Lopez, KRYSTYNA NCNS [employer] E[employer] RV today 01/07/[address] [address] No Lopez, RN NCNS for [employer]EC[employer] ESTATE RV today 01/07/[address] [address] No Lopez, RN Recommend EXEC[employer]OR [employer] ESTATE Tier 2 01/05/2025 Orders Only GENERIC EXTERNAL DATA DEPARTMENT Provider, Generic External Data 12/23/2024 Refill [facility] [address] [place] [address] Linda Murphy DO Chronic GERD 12/21/2024 Refill [facility] [address] [place] [address] Linda Murphy DO Chronic low back pain, unspecified back pain laterality, unspecified whether sciatica present 12/18/2024 Refill [facility] MEDICINE [address] [place] [address] Linda Murphy DO 12/18/2024 Refill [facility] [address] [place] [address] Linda Murphy DO Acute post-traumatic headache, not intractable; Chronic obstructive pulmonary disease, unspecified COPD type ([facility]) 12/18/2024 Refill [facility] MED[facility] [address] [place] [address] Linda Murphy DO Type 2 diabetes mellitus without complication, without long-term current use of insulin ([facility]); Type 2 diabetes mellitus with other specified complication, unspecified whether neon tube bender insulin use ([facility]); Chronic obstructive pulmonary disease, unspecified COPD type ([facility]) 12/15/2024 Orders Only GENERIC EXTERNAL DATA DEPARTMENT Provider, Generic External Data 12/07/2024 Telephone [facility] MED[facility] [address] [place] [address] Linda Murphy DO 12/06/2024 Orders Only GENERIC EXTERNAL DATA DEPARTMENT Provider, Generic External Data 12/01/2024 Refill [facility] [address] [place] [address] Linda Murphy DO Acute post-traumatic headache, not intractable; Chronic obstructive pulmonary disease, unspecified COPD type ([facility]) 11/25/2024 Orders Only [facility] External Provider, [facility] 11/18/2024 Travel 11/14/2024 Refill [facility] MED[facility] [address] [place] [address] Linda Murphy DO 11/04/2024 Refill [facility] [address] [place] [address] Linda Murphy DO Acute post-traumatic headache, not intractable 10/30/2024 Telephone [facility] [address] [place] [address] Joselyn García, KRYSTYNA PET results 10/30/2024 Telephone [facility] [address] [place] [address] RESULTS 10/24/2024 Refill [facility] [address] [place] [address] Linda Murphy DO from Last 3 Months Immunizations Name Administration [...] Description 01/27/2025 11:15 AM EDT Office Visit [facility] [place] [address] Linda Murphy DO [address] [place] [address] 02/09/2025 1:00 PM EDT Clinical Support [facility] MED[facility] [address] [place] [address] No Lopez, KRYSTYNA Health Maintenance Due Date Last Done Comments CT Colonography 1972 Colonoscopy 1972 Colorectal Cancer Screening 1972 FIT DNA/Cologuard 1972 FIT 1972 FOBT 1972 Sigmoidoscopy 1972 Eye Exam 1982 Alcohol/Substance Use Screening 1984 Family Planning (PISQ) 1987 Hepatitis A Vaccines (1 of 2 - Risk 2-dose series) 1991 Mammogram 04/01/2021 04/01/2019, 03/12, 01/09/2018 Diabetes: Hemoglobin A1C 11/13/2024 024, 06/16/2024, 01/28/2024, Additional history exists Cervical Cancer Screening 02/15/2025 Pap Smear 02/15/2025 02/15/2022, 02/15/2022 Diabetes: Urine Protein Screening 08/13/2025 08/13/2024, 01/14/2023, 11/29/2021, Additional history exists Lipid Panel 08/13/2025 08/13/2024, 08/11, 09/19/2022, Additional history exists Diabetes: Foot Exam 09/18/2025 09/18/2024, 08/26/2024, 08/26/2024, Additional history exists Tobacco Screening 09/22/2025 09/22/2024 Depression Screening 01/19/2026 01/19/2025, 01/20/20 25 SDOH Screening 01/19/2026 01/19/2025 HPV/Cotest 05/21/2027 05/21/2022, 05/11, 02/15/2022 DTaP/Tdap/Td Vaccines [...] 3:26 PM EDT) No Neri Yang, Kaiden Procedures Procedure Name Priority Date/Time Associated Diagnosis [...] EST Narrative 01/06/2025 9:00 AM EST ? [facility] ?[address] ?[place] [address] ?XRay Report ? Signed ? Patient: Kiniel,Tisha ?MR#: [id number] ?? 61 ? : 1970 ?Acct:[id number] ? Age/Sex: 54 / F ?ADM Date: 02/25/25 ? Loc: HO.SSS ? Attending Dr: Mario Hoyt MD ? Ordering Physician: Rogelio Sales ?? Date of Service: 01/05/25 ?? Procedure(s): XR chest 1V ?? Accession Number(s): [id number] ? cc: Linda Murphy DO; Rogelio Sales [...] DD/ 1241 ? TD/TT: 01/05/25 1241 ? Health Services Information Specialist: ? Procedure Note Gnozalez, Image - 01/06/2025 [place] [address] XRay Report Signed Patient: Ayanna RuiznMR#: [id number] 61 : 1970Acct:[id number] Age/Sex: 54 / FADM Date: 01/05/25 Loc: HO.SSS Attending Dr: Mario Hoyt MD Ordering Physician: Rogelio Sales Date of Service: 01/05/25 Procedure(s): XR chest 1V Accession Number(s): [id number] cc: Linda Murphy DO; Rogelio Sales EXAMINATION: [...] Dillon Botello MD 01/06/2025 08:57 AM EST Dictated By: Dillon Botello MD Signed By: <Electronically signed by Dillon Botello MD in OV> 01/06/25 0857 DD/ 124 TD/TT: 01/05/25 1241 Health Services Information Specialist: [facility] External Provider IMG XR PROCEDURES Final Result * Gross and Microscopic Level 4 (01/05/2025 10:57 AM EST) 01/05/2025 10:5 7 AM EST 01/05/2025 11:19 AM EST [facility] - 01/07/2025 2:12 PM EST ----- ------- Name: Tisha Ruiz ? Age/Sex: 54/F ? : 1970 Unit#: [id number] ?? Attend Dr: Mario Hoyt MD ?Re01/05/25 ?Status: DEP [facility] ? Location: HO.SSS ?Disch: ? ----- ------- SPEC : [id number] ?RECD: 01/05/25 ? STATUS: ??SOUT ? REQ NUM: [id number] ? HILARY: 01/05/25 ? SUBM DR: Rogelio Sales ? ENTERED: ??01/05/25-1120 ?SP TYPE: Surgical ? OTHR DR: Linda Murphy DO ?Mario Hoyt MD ORDERED: ??Gross Micro L4, IHC, Add. immunos, Napsin, TTF-1, NSCLC Lung bx ?Addendum Addendum ??1 ?Entered: 01/07/25-7173 Immunostains show the tumor is positive for TTF 1 and Napsin A, confirming pulmonary origin. Controls stain appropriately. PD-L1 and molecular studies will be attempted but the tissue is scant; report to follow. Addendum Signed (signature on file) Anuradha Bhavana 01/07/25 1412 ? ----- ------- ? Diagnosis [...] ? Age/Sex: 54/F ? : 1970 Unit#: [id number] ?? Attend Dr: Mario Hoyt MD ?Re01/05/25 ?Status: DEP SDC ? Location: HO.SSS ?Disch: ? ----- ------- SPEC : [id number] ?RECD: 01/05/25-1118 ? STATUS: ??SOUT ? REQ NUM: [id number] ? HILARY: 01/05/25-1056 ? SUBM DR: Rogelio [...] Copies To: ?? Linda Murphy DO ?? [facility] ?? [address] ?? [place] ?? [phone] ?? Mario Hoyt MD ?? [facility] ?? [address] ?? [place], [place] ?? [phone] ?? [email or web address] ?? Rogelio Sales ?? [address] ?? [place] ?? [phone] ?? [email or web address] ----- ------- Signed (signature on file) Anuradha Bateman 01/06/251717 ? ----- ------- ? END OF REPORT ? us Generic External Data Provider LAB CYTOLOGY BEVERLYE CHICHO Final Result [facility] [address] [place] [address] [phone] * CT Biopsy Lung Left (01/05/2025 10:18 AM EST) Anatomical Region Laterality Modality Computed Tomogra phy 01/05/2025 10:1 8 AM EST Narrative 01/06/2025 2:23 PM EST ? [facility] ?[address] ?[place] [address] ? CT Scan Report ? Signed ? Patient: Tisha Ruiz ?MR#: [id number] ?? 61 ? : 1970 ?Acct:[id number] ? Age/Sex: 54 / F ?ADM Date: 01/05/25 ? Loc: HO.SSS ? Attending Dr: Mario Hoyt MD ? Ordering Physician: Mario Hoyt MD ?? Date of Service: 01/05/25 ?? Procedure(s): CT biopsy lung LT ?? Accession Number(s): [id number] ? cc: Linda Murphy DO; aMrio Hoyt MD ? Report Number: ?? [id number]: Total DLP = ??490.00 mGy-cm ?? 54-year-old [...] DD/ 1018 ? TD/TT: 01/05/25 1119 ? Health Services Information Specialist: ? Procedure Note Gonzalez, Elena - 01/06/[address] [address] [address] Scan Report Signed Patient: Ayanna RuizNHR#: [id number] 61 : 1970Acct:[id number] Age/Sex: 54 / FADM Date: 01/05/25 Loc: .[facility] Attending Dr: Mario Hoyt MD Ordering Physician: Mario Hoyt MD Date of Service: 01/05/25 Procedure(s): CT biopsy lung LT Accession Number(s): [id number] cc: Linda Murphy DO; Mario Hoyt MD Report Number: [id number]: Total DLP = 490.00 mGy-cm 54-year-old female [...] 01/06/25 1423 DD/ 1018 TD/TT: 01/05/25 1119 Health Services Information Specialist: [facility] External Provider IMG CT PROCEDURES Final Result * (ABNORMAL) Glucose, Whole Blood (01/05/2025 9:48 AM EST) Only the most recent of3 resultswithin the time period is included. Glucose, Whole Blood 149(H) 60 - 115 mg/dL [facility] Comment:METER #: [id number] 01/05/2025 9:48 AM EST 01/05/2025 9:53 AM EST Generic External Data Provider LAB BLOOD ORDERAB LES Final Result [facility] [address] [place] [address] [phone] * (ABNORMAL) Partial Thromboplastin Time, Activated (APTT) (12/15/2024 9:21 AM EST) Partial Thromboplastin Time 40.1(H) 26.0 - 36.8 SEC [facility] Comment:For information rega rding the monitoring of direct thrombininhibitors, please refer to Pharmacy. 12/15/2024 9:21 AM EST 12/15/2024 9:24 AM EST us Generic External Data Provider LAB BLOOD ORDERAB LES Final Result Performing Organization Address [facility]/ZIP Co de Phone Number [facility] [address] [place] [phone] * (ABNORMAL) Prothrombin Time-INR (12/15/2024 9:21 AM EST) Prothrombin Time 9.9(L) 10.9 - 12.4 SEC [facility] INTERNATIONAL NORM RATIO 0.9 0.9 - 1.1 [facility] Comment:INTERNATIONAL NORMAL IZED RATIO (INR) [...] 9:21 AM EST 12/15/2024 9:24 AM EST us Generic External Data Provider LAB BLOOD ORDERAB LES Final Result Performing Organization Address [facility] Co de Phone Number [facility] [address] [place] [phone] * (ABNORMAL) Urinalysis, Complete, with Reflex to Culture (12/06/2024 12:50 PM EST) Color Urine Yellow [facility] Appearance Urine Clear [facility] PH 7.5 5.0 - 9.0 [facility] Glucose Urine UA Negative Negative mg/dL [facility] Urine Blood Negative Negative [facility] Specific [place] - Urine 1.015 1.005 - 1.025 [facility] Urine Protein Trace Neg-Trace mg/dL [facility] Urine Ketones Negative Negative mg/dL [facility] Nitrite Urine Negative Negative [facility] Leukocyte Esterase Urine Small (1+)(A) Negative [facility] RBC Urine 0-2 0 - 2 /HPF [facility] Urine WBC 11-20(A) 0 - 5 /HPF [facility] Urine Squamous Epithelial Cell 0-2 0 - 2 /HPF [facility] Urine Bacteria Trace None Seen [facility] Hyaline Casts, Urine 0-2 0 - 2 /LPF [facility] 12/06/2024 12:5 0 PM EST 12/06/2024 1:03 PM EST Narrative [facility] - 12/06/2024 1:24 PM EST Urine, Clean Catch us Generic External Data Provider LAB URINE ORDERAB LES Final Result [facility] [address] [place] [address] [phone] * SARS-CoV-2 RNA, Influenza A/B, and RSV RNA, Ql NAAT (12/06/2024 12:50 PM EST) Influenza A PCR NEGATIVE Negative [facility] Influenza B PCR NEGATIVE Negative [facility] Resp Syncy Virus RNA Qual PCR NEGATIVE Negative [facility] SARS COV2 PCR NEGATIVE Negative [facility] Comment:All test results mus t [...] use by authorized laboratories.Testing performed on the [employer] GeneXpert utilizingreal-time RT-PCR.All SARS CoV2 and positive influenza A/B results arereported to [facility]. 12/06/2024 12:5 0 PM EST 12/06/2024 1:03 PM EST us Generic External Data Provider LAB MICROBIOLOGY - GENERAL ORDERABLES Final Result [facility] [address] [place] [address] [phone] * (ABNORMAL) CBC auto differential (12/06/2024 12:50 PM EST) White Blood Count 11.3(H) 4.8 - 10.8 X10*3/uL [facility] Red Blood Count 4.94 4.20 - 5.50 X10*6/uL [facility] Hemoglobin 13.8 12.0 - 16.0 g/dl [facility] Hematocrit 41.6 37.0 - 47.0 % [facility] Mean Corpuscular Volume 84.2 80.0 - 98.0 fL [facility] Mean Corpuscular Hemoglobin 27.9 27.0 - 33.0 pg [facility] Mean Corpuscular HGB Conc 33.2 31.0 - 35.0 g/dl [facility] Red Cell Distribution Width 13.9 11.0 - 16.0 % [facility] Platelet Count 327 160 - 400 X10*3/uL [facility] Mean Platelet Volume 9.7 9.4 - 12.3 fL [facility] Neutrophils Percent Auto 71.7 45 - 73 % [facility] Imm Gran Pct Auto 0.5(H) 0.0 - 0.4 % [facility] Lymphocytes Percent Auto 20.7 20 - 40 % [facility] Monocytes Percent Auto 5.6 2 - 11 % [facility] Eosinophils Percent Auto 1.1 0 - 4 % [facility] Basophils Percent Auto 0.4 0 - 2 % [facility] NRBC Pct Auto 0.0 0.0 - 0.2 /100WBC [facility] Neutrophils Absolute Auto 8.1 2.0 - 8.3 x10*3/uL [facility] Imm Gran Abs Auto 0.06(H) 0.00 - 0.03 X10*3/uL [facility] Lymphocytes Absolute Auto 2.4 1.2 - 4.9 X10*3/uL [facility] Monocytes Absolute Auto 0.6 0.1 - 1.2 X10*3/uL [facility] Eosinophils Absolute Auto 0.1 0.0 - 0.4 X10*3/uL [facility] Basophils Absolute Auto 0.0 0.0 - 0.2 X10*3/uL [facility] NRBC Abs Auto 0.000 0.0 - 0.012 X10*3/uL [facility] 12/06/2024 12:5 0 PM EST 12/06/2024 1:03 PM EST Generic External Data Provider LAB BLOOD ORDERAB LES Final Result Performing Organization Address [facility] Co de Phone Number [facility] [address] [place] [phone] * (ABNORMAL) Hepatic Function Panel (12/06/2024 12:50 PM EST) Bilirubin, Total 0.2 0.0 - 1.0 mg/dL [facility] Bilirubin, Direct <0.2 0.0 - 0.5 mg/dL [facility] Aspartate Amino Transferase 23 5 - 31 U/L [facility] Alanine Aminotransferase 26 0 - 31 U/L [facility] Total Protein 8.1(H) 6.5 - 8.0 g/dL [facility] Albumin Level 4.4 3.5 - 5.0 g/dL [facility] Alkaline Phosphatase 92 39 - 117 U/L [facility] 12/06/2024 12:5 0 PM EST 12/06/2024 1:03 PM EST Generic External Data Provider LAB BLOOD ORDERAB LES Final Result Performing Organization Address [facility]/ZIP Co de Phone Number [facility] [address] [place] [phone] * (ABNORMAL) Basic Metabolic Panel (12/06/2024 12:50 PM EST) Sodium 143 135 - 145 mmol/L [facility] Potassium 4.4 3.3 - 5.1 mmol/L [facility] Chloride 103 96 - 108 mmol/L [facility] Carbon Dioxide 30(H) 22 - 29 mmol/L [facility] Anion Gap 14 12 - 20 [facility] Urea Nitrogen (BUN) 13 9 - 16 mg/dL [facility] Creatinine, Serum 1.10 0.5 - 1.4 mg/dL [facility] Creatinine Clr Calc Pharmacy 69.7 [facility] Comment:Provided height and weight: 170.18 cm,92.1 kg.eGFR (calculated from the MDRD study equation) and eCrCl(calculated from the Cockcroft-Gault equation) are based ondifferent parameters and may not yield comparable results.If eCrCl result is absurd, please check patient'sheight/weight. Estimated Glomerular Filt Rate 52 [facility] Comment:Chronic Kidney Disea se: Estimated GFR < 60 mL/min/[id number] Kidney Disease: Estimated GFR < 15 mL/min/1.73m2 Glucose 170(H) 60 - 115 mg/dL [facility] Calcium 9.5 8.4 - 10.2 mg/dL [facility] 12/06/2024 12:5 0 PM EST 12/06/2024 1:03 PM EST us Generic External Data Provider LAB BLOOD ORDERAB LES Final Result [facility] [address] [place] [address] [phone] * Culture, Urine, Routine (12/06/2024 12:00 AM EST) Urine Urine specimen obtained by clean catch procedure / Unknown 12/06/2024 12/06/2024 Comment:UACC Narrative [facility] - 12/07/2024 8:13 AM EST Urine Culture Report Result Urine Culture 50,000 to 100,000 cfu/ml Urine Culture Mixed bacterial cabrera characteristic of Urine Culture urogenital contamination. Specimen Source: Urine clean catch us Generic External Data Provider LAB MICROBIOLOGY - GENERAL ORDERABLES Final Result Performing Organization Address [facility]/State/ZIP Co de Phone Number [facility] [address] [place] [phone] [phone] * US Head Neck Soft Tissue (11/25/2024 2:35 PM EST) Anatomical Region Laterality Modality Head, Neck Ultrasound 11/25/2024 2:35 PM EST Narrative 11/26/2024 8:32 AM EST ? [facility] ?[address] ?[place] [address] ? Ultrasound Report ? Signed ? Patient: Sara,Tisha ?MR#: [id number] ?? 61 ? : 1970 ?Acct:[id number] ? Age/Sex: 54 / F ?ADM Date: 11/25/24 ? Loc: HO.US ? Attending Dr: [place] Candelario MD ? Ordering Physician: Geneva Candelario MD ?? Date of Service: 11/25/24 ?? Procedure(s): US soft tiss head and/or neck ?? Accession Number(s): [id number] ? cc: Linda Murphy DO; Geneva Candelario [...] AM EST RP ? Dictated By: ?Sonya,Jamie S MD ? Signed By: ?<Electronically signed by Jamie S Sonya, MD in OV> ?11/26/24 0829 ? DD/ 1435 ? TD/TT: 11/25/24 1450 ? Health Services Information Specialist: MSM ? Procedure Note Elena Roth - 11/26/[address] [address] Ultrasound Report Signed Patient: Ayanna RuizElmerR#: [id number] : 1970Acct:[id number] Age/Sex: 54 / FADM Date: 11/25/24 Loc: HO.US Attending Dr: Geneva Candelario MD Ordering Physician: Geneva Candelario MD Date of Service: 11/25/24 Procedure(s): US soft tiss head and/or neck Accession Number(s): [id number] cc: Linda Murphy DO; Geneva Candelario MD [...] 11/26/24 0829 DD/ 1435 TD/TT: 11/25/24 1450 Health Services Information Specialist: DAMI [facility] External Provider IMG US PROCEDURES Edited Result - Final * Albumin, Random Urine W/Creatinine (08/13/2024 3:30 PM EDT) Creatinine, Urine 21.51 mg/dL [facility] Microalbumin Urine <5.0 mg/L [facility] Microalbum Creatinine Ratio Ur TNP <30 ug/mg cr [facility] Comment:Unable to calculate albumin/creatinine ratio due to lowmicroalbumin or creatinine result. Urine (Urine, Random) 08/13/2024 3:30 PM EDT 08/13/2024 3:38 PM EDT Linda Murphy DO LAB URINE ORDERABLES Final R esult [facility] [address] [place] [phone] [phone] * (ABNORMAL) Hemoglobin A1c (08/13/2024 3:26 PM EDT) Hemoglobin A1c 7.4(H) <6.0 % [facility] Comment:Hemoglobin A1C Refer ence Range Adults: 4.8 - 6.0 % Non diabetic: < 6.0 % Goal: < 7.0 %Additional Action Suggested: > 8.0 %Note: Hemoglobin A1c results are invalid for patients with abnormal amounts of HbF. Blood transfusions may impact the HbA1c concentration in the patient sample. Estimated Average Glucose 166 mg/dL [facility] Comment:eAG = Estimated ave rage glucose which is %A1C expressed asaverage glucose, using the formula of the P9Z-[id number] Glucose study (ADAG), Diabetes Care, Vol.31,#8,Jun. 2007 Blood Venous blood specimen / Unknown 08/13/2024 3:26 PM EDT 08/13/2024 3:26 PM EDT Linda Murphy DO LAB BLOOD ORDERABLES Final R esult Performing Organization Address City/[facility] Co de Phone Number [facility] [address] [place] [address] [phone] * (ABNORMAL) Lipid Panel, Standard (08/13/2024 3:26 PM EDT) Triglycerides 257(H) <150 mg/dL [facility] Comment:Desirable Triglyceri de: less than 150 mg/dLBorderline High Triglyceride 150-199 mg/dLHigh Triglyceride: 200-499 mg/dLVery High Triglyceride: greater than or equal to 5OO mg/dL Cholesterol 151 <200 mg/dL [facility] Comment:Desirable Cholestero l: less than 200 mg/dLBorderline High Cholesterol: 200-239 mg/dLHigh Cholesterol: greater than 239 mg/dL LDL Cholesterol Calculated 61 <100 mg/dL [facility] Comment:Desirable LDL: less than 100 mg/dLNear Optimal/Above Optimal LDL: 110- 129 mg/dLBorderline High LDL: 130-159 mg/dLHigh LDL: 160-189 mg/dLVery High LDL: greater than or equal to 190 mg/dL HDL Cholesterol 39(L) >40 mg/dL [facility] Comment:Desirable HDL: great er than 40 mg/dL Note: This HDL assay may give artificially low results in patients with liver disease. Blood Venous blood specimen / Unknown 08/13/2024 3:26 PM EDT 08/13/2024 3:26 PM EDT us Linda Murphy DO LAB BLOOD ORDERABLES Final R esult Performing Organization Address City/[facility]/ZIP Co de Phone Number [facility] [address] [place] [address] [phone] * HIV Ab/Ag (SETH PAK) (08/26/2023 2:47 PM EDT) HIV AB/AG Nonreactive Nonreactive [facility] Comment:HIV-1 p24 Ag and/or HIV-1/HIV-2 Ab not detected.A test result that is nonreactive does not exclude thepossibility of exposure to or infection with HIV-1 and/orHIV-2. Nonreactive results in this assay for individualswith prior exposure to HIV-1 and/or HIV-2 may be due toantigen and antibody levels that are below the limit ofdetection of this assay.The KODAniFlare Code HIV Ag/Ab Combo assay result andsupplemental assay results should be interpreted inconjunction with the patient's clinical presentation,history and other laboratory results. If the results areinconsistent with clinical evidence, additional testing issuggested to confirm the result. 08/26/2023 2:47 PM EDT 08/26/2023 2:47 PM EDT Linda Murphy DO LAB BLOOD ORDERABLES Final R esult Performing Organization Address [facility] Co de Phone Number [facility] [address] [place] [phone] * Hepatitis C Antibody with Reflex to HCV, RNA, Quantitative, Real-Time PCR (08/26/2023 2:47 PM EDT) Hepatitis C Antibody Nonreactive Nonreactive [facility] Comment:Antibodies to HCV no t detected; does not exclude early acuteHCV infection. 08/26/2023 2:47 PM EDT 08/26/2023 2:47 PM EDT Linda Murphy DO LAB BLOOD ORDERABLES Final R esult Performing Organization Address [facility] Co de Phone Number [facility] [address] [place] [address] [phone] * HPV E6/E7 RFLX LUIS 16 18/45 (05/21/2022 3:45 PM EDT) HPV mRNA E6/E7 rflx Not Detected Not Detected [facility] Comment: Methodology: Radiology Aide-Mediated Amplification This assay detects E6/E7 viral messenger RNA (mRNA) from 14 high-risk HPV types (16,18,31,33,35,39,45,51,52,56,58,59,66,68). Cervical sources are required for HPV testing. If a vaginal source from a patient who has had a total hysterectomy with removal of cervix was submitted, please contact the testing laboratory for alternative testing options. For additional information, please refer to http://education.Plibber/faq/VCR466e7 (This link if provided for information/ educational purposes only.) THIS TEST WAS PERFORMED AT: [employer] [address] [place] [address],[address] [place], [place] ??[phone] VALERIA DURANT MD 05/21/2022 3:45 PM EDT Fercho Palmer MD HISTORICAL/NON ORDERABLE LABS Fi nal Result [facility] [address] * Pap Smear (02/15/2022 12:00 AM EDT) Swab Linda Murphy DO LAB CYTOLOGY ORDERABLES Ce l Result [employer] [address] [place] [address], [place] [address] * DIGITAL BILATERAL SCREEN 1 (04/01/2019 2:56 [...] Most Recently Relevant to Health Maintenance Insurance [facility] [employer] Care Teams Furnace Tapper Relationship Specialty Start Date End Date Linda Murphy DO [address] [place], [place] [phone] PCP - General Family Medicine 11/24/12 Antionette Murphy PharmD [address] [place], [place] [phone] Pharmacist Internal Medicine 07/15/24
--- OUTSIDE RECORDS SUMMARY | 2025-01-20 11:26 | XMS_ITS | Encounter Summary ---
Author Organization [employer] Address [address] [place] [address] 7t [place] [address] Care Team Providers Care Flanging Roll Operator Name Role Phone Linda Murphy DO Primary Care Provider [phone] Antionette Murphy PharmD Unavailable [phone] Reason for Referral * Cardiology (Routine) - Authorized Specialty Diagnoses / Procedures Referred By Contac t Referred To Contact Diagnoses Preop examination Procedures ECG 12 lead Linda Murphy DO [address] [place] [address] Phone: tel: fax: [address] Phone: tel: fax: Referral ID Status Reason Start Date Expiration Date V isits Requested Visits Authorized [id number] Authorized 01/19/2025 01/19/2026 1 1 Reason for Visit * Reason Comments Televisit Encounter Details Date Type Department Care Team (Late st Contact Info) Description 01/19/2025 11:45 AM EDT Telemedicine [facility] [address] [place] [address] Linda Murphy DO [address] [place] [address] Chest congestion (Primary Dx); Preop examination Social History Tobacco Use Types Packs/Day Years [...] 11:15 AM EDT Office Visit [facility] [address] [place] [address] Linda Murphy DO [address] [place] [address] 02/09/2025 1:00 PM EDT Clinical Support [facility] [address] [place] [address] No Lopez RN Scheduled Orders Name Type Priority Associated Diagnoses Orde r Schedule XR Chest 2 Views Imaging STAT Chest congestion Expected: 01/19/2025, Expires: 01/19/2026 ECG 12 lead ECG Routine Preop examination Ordered: 01/19/2025 CBC auto differential Lab Routine Preop examination Expected: 01/19/2025 (Approximate), Expires: 01/19/2026 Basic Metabolic Panel Lab Routine Preop examination Expected: 01/19/2025 (Approximate), Expires: 01/19/2026 Hemoglobin A1c Lab Routine Preop examination Expected: 01/19/2025 (Approximate), Expires: 01/19/2026 Prothrombin Time-INR Lab Routine Preop examination Expected: 01/19/2025, Expires: 01/19/2026 Partial Thromboplastin Time, Activated (APTT) Lab Routine Preop examination Expected: 01/19/2025, Expires: 01/19/2026 documented as of this encounter Goals Goal Patient Goal Type Associated Problems Recent Progress Patient-Stated? Author Hemoglobin A1c < 7 Result Component 7.4(08/13/2024 3:26 PM EDT) No Neri Yang PharmD documented as of this encounter Visit Diagnoses Diagnosis Chest congestion- Primary Other symptoms involving respiratory system and chest Preop examination Unspecified pre-operative examination documented in this encounter Additional Health Concerns Assessment Noted Time PHQ-9 Depression Total Score: 0 01/20/20 25 12:15 PM EDT documented as of this encounter Care Teams Flanging Roll Operator Relationship Specialty Start Date End Date Linda Murphy DO [address] [place] [address] PCP - General Family Medicine 11/24/12 Antionette Murphy PharmD [address] [place] [address] Pharmacist Internal Medicine 07/15/24 documented as of this encounter
--- OUTSIDE RECORDS SUMMARY | 2025-01-20 11:26 | XMS_ITS | Clinical Summary ---
Author Organization [facility] Address [address] [place] [address] Phone Care Team Providers Care Pipefitter Helper Name Role Phone Lvelian Linda Juanito RAMESH Primary Care Provider [phone] Allergies No known active allergies Medications acetaminophen [...] 1:45 PM EST Office Visit Orthopedic Surgery [facility] [address] [phone] Gutierrez Ruiz DPM Controlled type 2 diabetes [...] 9:15 AM EDT Office Visit Orthopedic Surgery [facility] [address] [phone] Gutierrez Ruiz DPM [address] [address] Health Maintenance Due Date Last Done Comments [...] patient's age to complete this topic Insurance [facility] Member Subscriber Plan / Payer (Ef fective 2013-Present) Name:Tisha Ruiz Relation to Subscriber:Self Name:Tisha Ruiz Payer ID:[id number] Group ID:[id number] Type:Not on file Address: JORGE L [facility] [place] [phone] Care Teams Pipefitter Helper Relationship Specialty Start Date End Date Linda Murphy DO [address] [place] [address] PCP - General Internal Medicine 04/09/19
--- OUTSIDE RECORDS SUMMARY | 2025-01-20 11:26 | XMS_ITS | Encounter Summary ---
Author Organization [employer] Address [address] [facility] [address] 7t [place] [address] Care Team Providers Care Kitchen Operator Name Role Phone Katherine Linda Primary Care Provider + [phone] Antionette Murphy PharmD Unavailable [phone] Reason for Visit * Reason Onset Date Comments NCNS for COLOR GRINDER RV today 01/07/2025 Encounter Details Date Type Department Care Team (Late st Contact Info) Description 01/07/2025 Telephone [facility] 230 [place] [address] No Lopez, RN NCNS for COLOR GRINDER RV today Social History Tobacco Use Types [...] 10:42 AM EST Pt was NCNS for COLOR GRINDER RV appt today. Pt cancelled COLOR GRINDER 12/29/24, 12/15/24 and 10/27/24. TC to patient, [...] 11:15 AM EDT Office Visit [facility] [address] [place] [phone] Linda Murphy DO [address] [place] [address] 02/09/2025 1:00 PM EDT Clinical Support [facility] [address] [place] [address] No Lopez, RN documented as of this [...] documented as of this encounter Care Teams Kitchen Operator Relationship Specialty Start Date End Date Linda Murphy DO [address] [place] [address] PCP - General Family Medicine 11/24/12 Antionette Murphy PharmD [address] [place] [address] Pharmacist Internal Medicine 07/15/24 documented as of this encounter
--- OUTSIDE RECORDS SUMMARY | 2025-01-20 11:26 | XMS_ITS | Encounter Summary ---
Author Organization [facility] Address [phone] [place] [phone] Care Team Providers Care Dumping Machine Operator Name Role Phone Joelle Murphyfer Juanito RAMESH Primary Care Provider [phone] Reason for Visit * Reason Comments Foot Pain FAN BLADE ALIGNER PLANTAR FASCITIS * Orthopedic (Routine) - Closed Specialty Diagnoses / Procedures Referred By Rolf pascual Referred To Contact Podiatry / Orthopaedic Surgery Diagnoses Plantar callus Procedures AMB REFERRAL TO PODIATRY Asuncion Bailey MD [address] [address] Phone: tel: fax: Gutierrez Ruiz DPM [address] [address] Phone: tel: fax: Referral ID Status Reason Start Date Expiration Date V isits Requested Visits Authorized [id number] Closed Consult and Treat 1 Encounter Details Date Type Department Care Team (Late st Contact Info) Description 12/29/2024 1:45 PM EST Office Visit Orthopedic Surgery - [address] [phone] Gutierrez Ruiz DPM [address] [address] Controlled type 2 diabetes with neuropathy (CMS/HCC) [...] Sharp/dull sensation intact, protective sensation intact on [place]. Peripheral neuropathy throughout the feet bilaterally ORTHOPEDIC: [...] Continue with regular appointments with PMD or press brake operator for tight medical management Patient found [...] Patient shown different offloading measures (metatarsal pads). [id number]: Destruction of eccrine poroma left foot: Verbal [...] AM EDT Office Visit Orthopedic Surgery - [place] [phone] [phone] Gutierrez Ruiz DPM [address] [address] documented as of this encounter Visit Diagnoses Diagnosis Controlled type 2 diabetes with neuropathy (CMS/[facility])- Primary Type II or unspecified type [...] split. added in this encounter Care Teams Dumping Machine Operator Relationship Specialty Start Date End Date Linda Murphy DO [address] [place] [address] PCP - General Internal Medicine 04/09/19 documented as of this encounter
--- OUTSIDE RECORDS SUMMARY | 2025-01-20 11:26 | XMS_ITS | Encounter Summary ---
Author Organization [employer] Address [address] [facility] [address] 7t [place] [address] Care Team Providers Care Light Rail Train Operator Name Role Phone Linda Murphy DO Primary Care Provider DelNeri zavala PharmD Unavailable Unavail able Antionette Murphy PharmD Unavailable Reason for Visit * Reason Onset Date Comments Letter for School/Work 03/07/2023 Encounter Details Date Type Department Care Team ([facility] st Contact Info) Description 03/07/2023 Telephone [facility] 230 [place] [address] Linda Murphy DO [address] [place] [address] Letter for School/Work Social History Tobacco Use [...] mailed due to COVID Please contact at [phone] documented in this encounter Plan of Treatment Upcoming Encounters Date Type Department Care Team (Late st Contact Info) Description 01/27/2025 11:15 AM EDT Office Visit [address] [address] Linda Murphy DO [address] [place] [address] 02/09/2025 1:00 PM EDT Clinical Support [address] [address] No Lopez, KRYSTYNA documented as of this [...] documented as of this encounter Care Teams Light Rail Train Operator Relationship Specialty Start Date End Date Linda Murphy DO [address] [place] [address] PCP - General Family Medicine 11/24/12 Neri Yang, EricD [address] [place] [address] Pharmacist Internal Medicine 11/23/22 10/17/23 Antionette Murphy PharmD [address] [place] [address] Pharmacist Internal Medicine 07/15/24 documented as of this encounter
--- OUTSIDE RECORDS SUMMARY | 2025-01-20 11:26 | XMS_ITS | Encounter Summary ---
Author Organization [employer] Address [address] [facility] [address] 7t [place] [address] Care Team Providers Care Hawk Missile System Crewmember Name Role Phone Katherine Linda Primary Care Provider + [phone] Antionette Murphy PharmD Unavailable [phone] Reason for Visit * Reason Onset Date Comments NCNS BUTTON SEWER RV today 01/12/2025 Encounter Details Date Type Department Care Team (Late st Contact Info) Description 01/12/2025 Telephone [facility] 230 [place] [address] No Lopez RN NCNS BUTTON SEWER RV today Social History Tobacco Use Types [...] 11:14 AM EST Pt was NCNS for BUTTON SEWER RV today. Previous to today: 01/07/25 - Pt NCNS BUTTON SEWER RV 12/29/24 - Pt cancelled BUTTON SEWER RV 12/15/24 - Pt cancelled BUTTON SEWER RV 10/27/24 - Pt cancelled BUTTON SEWER RV TC to patient, no answer. L/M asking her to call back to reschedule appt. Will update PCP on missed appts documented in this encounter Plan of Treatment Upcoming Encounters Date Type Department Care Team (Late st Contact Info) Description 01/27/2025 11:15 AM EDT Office Visit [facility] [address] [place] [address] Linda Murphy DO [address] [place] [address] 02/09/2025 1:00 PM EDT Clinical Support [facility] [address] [place] [address] No Lopez, RN documented as of this [...] documented as of this encounter Care Teams Hawk Missile System Crewmember Relationship Specialty Start Date End Date Linda Murphy DO [address] [place] [address] PCP - General Family Medicine 11/24/12 Antionette Murphy PharmD 230 [place] [address] Pharmacist Internal Medicine 07/15/24 documented as of this encounter
--- OUTSIDE RECORDS SUMMARY | 2025-01-20 11:26 | XMS_ITS | Encounter Summary ---
Author Organization [employer] Address [address] [facility] [address] 7t [place] [address] Care Team Providers Care Rating Clerk Name Role Phone Linda Murphy DO Primary Care Provider [phone] Antionette Murphy PharmD Unavailable [phone] Reason for Visit * Reason Onset Date Comments Med Refill 01/18/2025 Encounter Details Date Type Department Care Team (Late st Contact Info) Description 01/18/2025 Refill [facility] [address] [place] [address] Linda Murphy DO [address] [facility] [place] [address] Chronic low back pain, unspecified back pain [...] as of this encounter Miscellaneous Notes * Addendum Note - Saumya Lopez RN - 01/18/2025 2:19 PM EDTAddended by: SAUMYA LOPEZ on: 01/18/2025 02:19 PM Modules accepted: Orders * Telephone Encounter - Sabine Gray LPN - 01/18/2025 2:11 PM EDT Received request on traMADol (Ultram) 50 MG tablet documented in this encounter Plan of Treatment Upcoming Encounters Date Type Department Care Team (Late st Contact Info) Description 01/27/2025 11:15 AM EDT Office Visit [facility] 230 [place], [place] [phone] Linda Murphy DO 230 [place], [place] [phone] 02/09/2025 1:00 PM EDT Clinical Support [facility] [address] [place] [address] Saumya Lopez, KRYSTYNA documented as of this encounter [...] documented as of this encounter Care Teams Rating Clerk Relationship Specialty Start Date End Date Linda Murphy DO [address] [place] [address] PCP - General Family Medicine 11/24/12 Antionette Murphy PharmD [address] [place] [address] Pharmacist Internal Medicine 07/15/24 documented as of this encounter
--- OUTSIDE RECORDS SUMMARY | 2025-01-20 11:26 | XMS_ITS | Encounter Summary ---
Author Organization [employer] Address [address] [facility] 7t [place] [address] Care Team Providers Care Optical Glass Etcher Name Role Phone Linda Murphy DO Primary Care Provider [phone] Neri Yang PharmD Unavailable Unavail able Antionette Murphy PharmD Unavailable [phone] Reason for Visit * Reason Onset Date Comments Results 10/08/2023 Encounter Details Date Type Department Care Team ([facility] st Contact Info) Description 10/08/2023 Telephone [facility] 230 [place] [address] Linda Murphy DO 230 [place], [place] [phone] Results Social History Tobacco Use Types Packs/Day [...] yesterday 10/07/2023 but was transferred to [facility]. documented in this encounter Plan of Treatment Upcoming Encounters Date Type Department Care Team (Late st Contact Info) Description 01/27/2025 11:15 AM EDT Office Visit [facility] [address] [place] [address] Linda Murphy DO [address] [place] [address] 02/09/2025 1:00 PM EDT Clinical Support [facility] [address] [place] [address] No Lopez RN documented as of this [...] documented as of this encounter Care Teams Optical Glass Etcher Relationship Specialty Start Date End Date Linda Murphy DO [address] [place] [address] PCP - General Family Medicine 11/24/12 Neri Yang, EricD [address] [place] [address] Pharmacist Internal Medicine 11/23/22 10/17/23 Antionette Murphy PharmD 230 [place] [address] Pharmacist Internal Medicine 07/15/24 documented as of this encounter
--- OUTSIDE RECORDS SUMMARY | 2025-01-20 11:26 | XMS_ITS | Encounter Summary ---
Author Organization [employer] Address [address] [facility] 7t [place] [address] Care Team Providers Care Notcher Name Role Phone Linda Murphy DO Primary Care Provider DelNeri zavala PharmD Unavailable Unavail able Antionette Murphy PharmD Unavailable [phone] Reason for Visit * Reason Onset Date Comments letter michael lopez 07/26/2023 Encounter Details Date Type Department Care Team (Late st Contact Info) Description 07/26/2023 Telephone [facility] MED[facility]INE 230 [place] [address] Linda Murphy DO [address] [place] [address] letter michael lopez Social History Tobacco Use [...] to Medical side. Please contact pt at [phone] documented in this encounter Plan of Treatment Upcoming Encounters Date Type Department Care Team (Late st Contact Info) Description 01/27/2025 11:15 AM EDT Office Visit [address] [address] Linda Murphy DO [address] [place] [address] 02/09/2025 1:00 PM EDT Clinical Support [address] [address] No Lopez, RN documented as of this [...] documented as of this encounter Care Teams Notcher Relationship Specialty Start Date End Date Linda Murphy DO [address] [place] [address] PCP - General Family Medicine 11/24/12 Neri Yang, PharmD [address] [place] [address] Pharmacist Internal Medicine 11/23/22 10/17/23 Antionette [place] PharmD [address] [place] [address] Pharmacist Internal Medicine 07/15/24 documented as of this encounter
--- OUTSIDE RECORDS SUMMARY | 2025-01-20 11:27 | XMS_ITS | Encounter Summary ---
Author Organization [employer] Address [address] [facility] [address] 7t [place] [address] Care Team Providers Care Arabic Translator Name Role Phone Linda Murphy DO Primary Care Provider [phone] Antionette Murphy PharmD Unavailable [phone] Reason for Visit * Reason Onset Date Comments Med Refill 12/18/2024 Encounter Details Date Type Department Care Team (Late st Contact Info) Description 12/18/2024 Refill [facility] MED & PEDS [address] [place] [address] Linda Murphy DO 230 [facility] [place] [address] Acute post-traumatic headache, not intractable; Chronic obstructive [...] 01/27/2025 11:15 AM EDT Office Visit [address] [address] Linda Murphy DO [address] [place] [address] 02/09/2025 1:00 PM EDT Clinical Support [address] [address] No Lopez, KRYSTYNA documented as of this [...] documented as of this encounter Care Teams Arabic Translator Relationship Specialty Start Date End Date Linda Murphy DO [address] [place] [address] PCP - General Family Medicine 11/24/12 Antionette Murphy, EricD [address] [place] [address] Pharmacist Internal Medicine 07/15/24 documented as of this encounter
[2025-02-01 10:06] VITALS: BP 111/65; PULSE 85; RESP 16; O2SAT 95; BMI 32.0
--- NOTE | 2025-02-10 08:34 | MHC.SHP ---
Pre-Procedural Eval Section A - 24 Hr Update-Section A only Date of Service: 02/11/25 The patient is an INPATIENT: Yes Changes since office visit: No Cold of Flu in the past 2 weeks, No New Medical Problems, No Changes in Medication and No Patient answered all questions Section B - Complete if H&P > 30 days Chief Complaint: Malignant neoplasm of lower lobe, left bronchus Allergies: Allergies Allergy/AdvReac Type Severity Reaction Status Date / Time oxycodone [Percocet] Allergy Intermediate stomach Verified 01/13/25 09:21 pain SEASONAL ALLERGIES Allergy Unknown UNKNOWN Uncoded 01/13/25 09:21 Review of Systems Sugical H&P ROS: Negative: Constitution, Cardiovascular, Respiratory, Neurological, Psychiatric, Hem-Onc, Allergic/Immunologic, Gastrointestinal, Genitourinary, Musculoskeletal, Integumentary, Endocrine and Eyes/Ears/Nose/Throat Exam Surgical H&P Exam: Normal: HEENT, Normal: Heart, Normal: Lungs, Normal: Extremities, Normal: Abdomen, Normal: Skin and Normal: Neurological Plan I have reviewed the history and physical and performed a pertinent physical examination on my patient. No changes have occurred unless specified. Time Spent With Patient Time: Total time managing care of this patient today ____ minutes.
[2025-02-11] VITALS (23 sets, daily range): BP systolic 99–140; BP diastolic 47–74; PULSE 70–109; RESP 16–20; TEMP 36.1–37.1; O2SAT 95–100; BMI 32.2
--- NOTE | ~2025-02-11 | XR_ITS ---
CLINICAL HISTORY: f u left lower lobectomy 1 view chest x-ray Comparison: 02/12/2025 Findings: Portions of the exam are obscured by overlying material. Overall appearance of the chest including left chest tube positioning and left pulmonary consolidation, are unchanged. IMPRESSION: 1. No significant change from yesterday. This document has been electronically signed by: Aldair Thorpe MD on 02/13/2025 08:52:00
--- NOTE | ~2025-02-11 | XR_ITS ---
EXAMINATION: XR CHEST 1 VIEW HISTORY: s/p left lower lobectomy COMPARISON: Comparison is made with the prior examination dated 01/20/2025. FINDINGS: A single AP portable view of the chest performed at 12:38 PM is submitted. A left-sided chest tube is seen in place. There is a trace pneumothorax at the lateral aspect of the left hemithorax. There is airspace opacity at the left lung base which may represent atelectasis or pneumonia. There may be tiny bilateral pleural effusions. The heart is normal in size. The bones are intact. There is extensive subcutaneous emphysema along the left chest wall. XR/XR chest 1V IMPRESSION: 1. Left chest tube in place. Trace left pneumothorax. 2. Airspace opacity at the left lung base which may represent atelectasis or pneumonia. Electronically signed by: Dillon Botello MD 02/11/2025 12:59 PM EDT
--- NOTE | ~2025-02-11 | XR_ITS ---
CLINICAL HISTORY: chest tube off suction 1 view chest x-ray Comparison: CR - XR CHEST 1V - 02/13/25 08:23 EDT Findings: Left-sided chest tube. Moderate left mid and lower lung airspace opacity. Small left pneumothorax, As before. Normal size heart. No acute fracture. IMPRESSION: 1. Left lung pneumonia. 2. Stable small left pneumothorax. This document has been electronically signed by: Abdirahman Hogue MD on 02/14/2025 16:44:58
--- NOTE | ~2025-02-11 | XR_ITS ---
EXAMINATION: XR CHEST CLINICAL INFORMATION: s/p left lower lobectomy COMPARISON: February 11, 2025. TECHNIQUE: Frontal view of the chest was obtained. FINDINGS: Percutaneously placed left-sided chest tube remains in the upper medial left hemithorax. Subcutaneous emphysema along the soft tissues of the left lateral chest wall less pronounced since prior exam. Volume loss, left lung. Prominence of the interstitial markings. No gross pneumothorax. Cardiomediastinal silhouette size is unchanged. Multilevel thoracic spondylosis. XR/XR chest 1V IMPRESSION: Decreased subcutaneous emphysema. Improved aeration left lung. Electronically signed by: Franki Fulton MD 02/12/2025 07:53 AM EDT
--- NOTE | ~2025-02-11 | XR_ITS ---
EXAMINATION: XR CHEST CLINICAL INFORMATION: f/u chest tube removal COMPARISON: Multiple priors, most recently earlier same day at 6:33 AM. TECHNIQUE: Frontal view of the chest was obtained. FINDINGS: Left-sided chest tube has been removed. Mild cardiac enlargement, similar. Mediastinal and hilar contours appear normal. Lungs again demonstrate retrocardiac opacities. There may be a tiny left effusion. There is no perceptible pneumothorax. The right lung appears clear. Subcutaneous emphysema again noted in the left chest wall. XR/XR chest 1V IMPRESSION: 1. Removal of left chest tube. No perceptible pneumothorax. 2. Persistent retrocardiac opacity. Cannot exclude a tiny left effusion. 3. Mild cardiac enlargement. 4. Subcutaneous emphysema in the left chest wall. Electronically signed by: Lexa Lei MD 02/15/2025 10:43 AM EDT
--- NOTE | ~2025-02-11 | XR_ITS ---
CLINICAL HISTORY: ptx 1 view chest x-ray Comparison: 02/14/2025 Findings: Portions of the chest are obscured by overlying material. Overall appearance of the chest including pulmonary consolidation, left pneumothorax with chest tube positioning, and subcutaneous emphysema, are not significantly changed. IMPRESSION: 1. No significant change from yesterday. This document has been electronically signed by: Aldair Thorpe MD on 02/15/2025 07:14:11
[2025-02-11 06:39] LABS: Glucose, Whole Blood 152 mg/dL (60-115)
[2025-02-11] MEDS: Lactated Ringers 1,000 ML 100 ML IVCONT ×2 (06:50→17:49)
--- NOTE | 2025-02-11 07:25 | P.CONAN_ITS ---
Documented by User: Lata Freire NP 02/10/25 10:34 HPI - Anesthesia Eval Consult details Narrative: 54yo F for Thoracoscopy w/Video Assist,possible OPEN,LEFT lower Lobectomy, Bronchoscopy Fiberoptic PAT 02/01/[address] Nash Medically optimized per PCP Anesthesia Pre-Procedure Meds Is the patient on any of the following meds?: GLP1/DPP4 (PO GLP 1 = 2 day hold) PMFSH Active Problems Active Problems: All Active Problems Primary malignant neoplasm of left lower lobe of lung (Acute) Mass of lower lobe of left lung (Acute) Encounter for screening colonoscopy (Acute) Patellofemoral arthritis of right knee (Acute) Incomplete right bundle branch block (Acute) Heart palpitations (Acute) Dysuria (Acute) Hot flashes (Acute) Encounter to discuss test results (Acute) Abnormal uterine bleeding (AUB) (Acute) Varicose veins of right lower extremity with inflammation (Acute) Leucocytosis (Acute) Uterine fibroid (Acute) DANIEL (obstructive sleep apnea) (Acute) Type 2 diabetes mellitus (Acute) JESICA positive (Acute) Vitamin D deficiency (Acute) Postoperative hypothyroidism (Acute) History of thyroid cancer (Acute) Morbid obesity (Acute) Sacroiliitis (Acute) Multinodular goiter (Acute) Hypercalcemia (Acute) Past Medical History Medical History (Updated 02/01/25 @ 09:48 by Alexia Gonzalez RN) Hx of radiation therapy Sciatica of right side Back pain Arthritis Anemia Thyroid disease Anxiety On home oxygen therapy Incomplete right bundle branch block (RBBB) Uterine fibroid DANIEL (obstructive sleep apnea) Cervical cancer Schizoaffective disorder Pancreatitis Type 2 diabetes mellitus JESICA positive Vitamin D deficiency Postoperative hypothyroidism History of thyroid cancer Morbid obesity Sacroiliitis Multinodular goiter HLD (hyperlipidemia) COPD (chronic obstructive pulmonary disease) GERD (gastroesophageal reflux disease) Bipolar 1 disorder Hypercalcemia Goiter Hypothyroidism Family History Family History Father Bipolar 1 disorder Mother Diabetes mellitus Hypertension Hyperlipidemia COPD (chronic obstructive pulmonary disease) Paternal Aunt Breast cancer Sister Cervical cancer Surgical History Surgical History (Updated 01/13/25 @ 09:38 by Mario Hoyt MD) Hx of total thyroidectomy Hx of tubal ligation Hx of cholecystectomy Social History Social History Household Members: Spouse and Children Household Members Other:: duplex Housing: Apartment Are you a primary care program director to a significant other at home: No Do you presently have visiting nurse or other home services: No Alcohol intake: never Patient Tobacco Use Status: Former Tobacco user Tobacco use type: Cigarette Cigarettes Per Day: 2 Use of substances other than those prescribed or required for medical reasons: Yes Substance Use Type: Marijuana Substance Use Frequency: Daily Have you been hit, kicked, punched, or otherwise hurt by someone within the past year? 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: Yes (Stress) Meds Allergies Allergy/AdvReac Type Severity Reaction Status Date / Time oxycodone [Percocet] Allergy Intermediate stomach Verified 02/11/25 06:59 pain SEASONAL ALLERGIES Allergy Unknown UNKNOWN Uncoded 02/11/25 06:59 Home Medications ?Medication ?Instructions ?Recorded ?Confirmed ?Last Taken ?Type lisinopril 2.5 mg tablet 2.5 mg PO QNOON 09/05/20 02/11/25 Unknown History metformin 500 mg tablet,extended 1,000 mg PO BID 09/05/20 02/11/25 Unknown History release 24 hr tramadol 50 mg tablet (Ultram) 50 mg PO Q8H PRN severe pain 09/05/20 02/11/25 Unknown History acetaminophen 650 mg 650 mg PO Q8H PRN Pain 04/24/21 02/11/25 Unknown History tablet,extended release albuterol sulfate 90 mcg/actuation 2 puff inhalation QID PRN Wheezing 04/24/21 02/11/25 02/11/25 05:00 History aerosol inhaler alcohol swabs 0 pad topical DAILY 04/24/21 01/13/25 Unknown History atorvastatin 40 mg tablet 40 mg PO BEDTIME 04/24/21 02/11/25 Unknown History fluticasone propionate 110 2 puff inhalation BID 0602/11/25 02/11/25 05:00 History mcg/actuation HFA aerosol inhaler (Flovent HFA) fluticasone propionate 50 2 spray intranasal DAILY PRN 04/24/21 02/11/25 Unknown History mcg/actuation nasal Allergy Symptoms spray,suspension (Flonase Allergy Relief) glipizide 5 mg tablet 10 mg PO BID 04/24/21 02/11/25 Unknown History haloperidol 5 mg tablet See Rx Instructions PO BID 04/24/21 02/11/25 02/11/25 05:00 History bupropion HCl 300 mg 24 hr tablet, 300 mg PO DAILY 06/07/22 02/11/25 02/11/25 05:00 History extended release aripiprazole 20 mg tablet 20 mg PO BEDTIME 09/24/22 02/11/25 02/11/25 05:00 History aspirin 81 mg tablet,delayed 81 mg PO DAILY 09/24/22 02/11/25 Unknown History release bupropion HCl 150 mg 24 hr tablet, 150 mg PO DAILY 09/24/22 02/11/25 02/11/25 05:00 History extended release clonazepam 1 mg tablet (Klonopin) 1 mg PO BID PRN Anxiety 04/04/23 02/11/25 02/11/25 05:00 History semaglutide 7 mg tablet (Rybelsus) 7 mg PO QAM 12/15/24 02/11/25 02/03/25 History ferrous sulfate 325 mg (65 mg 325 mg PO QNOON 02/01/25 02/11/25 Unknown History iron) tablet,delayed release loratadine 10 mg tablet 10 mg PO DAILY 02/01/25 02/11/25 Unknown History montelukast 10 mg tablet 10 mg PO QPM 02/01/25 02/11/25 Unknown History pantoprazole 20 mg tablet,delayed 20 mg PO DAILY@1700 02/01/25 02/11/25 Unknown History release Exam Height,Weight and Vital Signs: Height 5 ft 7.75 in Weight 94.801 kg Last Vital Signs Pulse 85 02/01/25 10:06 Resp 16 02/01/25 10:06 BP 111/65 02/01/25 10:06 Pulse Ox 95 02/01/25 10:06 O2 Del Method Room Air 02/01/25 10:06 Pertinent Lab Results Pertinent Lab Results: Laboratory Tests 02/01/25 11:11 Blood Type O Negative Antibody Screen NEGATIVE Laboratory Tests 01/20/25 11:26 WBC 13.2 H Hgb 13.6 Hct 41.2 Plt Count 329 Sodium 141 Potassium 4.0 Chloride 103 Carbon Dioxide 31 H BUN 7 L Creatinine 1.07 Narrative Narrative: EKG 01/2025 Vent. Rate : 84 BPM Atrial Rate : 84 BPM P-R Int : 176 ms QRS Dur : 106 ms QT Int : 382 ms P-R-T Axes : 74 -19 67 degrees QTcB Int : 451 ms Normal sinus rhythm Incomplete right bundle branch block Borderline ECG When compared with ECG of 06-Jul-2024 13:29, Minimal criteria for Anterior infarct are no longer Present PFT 01/2025 Spirometry [FEV1 to FVC 77%; FEV1 2.1 L; FVC 2.73 L. No significant response to bronchodilators noted.] Lung Volumes [Total lung capacity 71% predicted; residual volume 82% predicted; expiratory reserve volume 54% predicted] Diffusion Capacity [DLCO 70% predicted; DLCO VA 96% predicted] Comparisons [none] Interpretation [No obstructive ventilatory defects. No significant response to bronchodilators noted. The patient does have a restrictive ventilatory defect consistent with mild restrictive lung disease. In addition to that the patient has a mild diffusion impairment although it does correct to normal when correcting for the alveolar volume. Clinical correlation warranted.] Assessment and Plan Assessment Anesthesia Assessment: Chart Reviewed Documented by User: Lizbet Hutchinson DO 02/11/25 07:27 HPI - Anesthesia Eval Consult details Narrative: 54yo F for Thoracoscopy w/Video Assist,possible OPEN,LEFT lower Lobectomy, Bronchoscopy Fiberoptic Medically optimized per PCP Anesthesia Pre-Procedure Meds Is the patient on any of the following meds?: GLP1/DPP4 (PO GLP 1 = 2 day hold) PMFSH Past Medical History Medical History (Updated 02/01/25 @ 09:48 by Alexia Gonzalez RN) Hx of radiation therapy Sciatica of right side Back pain Arthritis Anemia Thyroid disease Anxiety On home oxygen therapy Incomplete right bundle branch block (RBBB) Uterine fibroid DANIEL (obstructive sleep apnea) Cervical cancer Schizoaffective disorder Pancreatitis Type 2 diabetes mellitus JESICA positive Vitamin D deficiency Postoperative hypothyroidism History of thyroid cancer Morbid obesity Sacroiliitis Multinodular goiter HLD (hyperlipidemia) COPD (chronic obstructive pulmonary disease) GERD (gastroesophageal reflux disease) Bipolar 1 disorder Hypercalcemia Goiter Hypothyroidism Family History Family History Father Bipolar 1 disorder Mother Diabetes mellitus Hypertension Hyperlipidemia COPD (chronic obstructive pulmonary disease) Paternal Aunt Breast cancer Sister Cervical cancer Family history of problems with anesthesia: No Surgical History Surgical History (Updated 01/13/25 @ 09:38 by Mario Hoyt MD) Hx of total thyroidectomy Hx of tubal ligation Hx of cholecystectomy History of Problems with Anesthesia: No Social History Social History Household Members: Spouse and Children Household Members Other:: duplex Housing: Apartment Are you a primary care program director to a significant other at home: No Do you presently have visiting nurse or other home services: No Alcohol intake: never Patient Tobacco Use Status: Former Tobacco user Tobacco use type: Cigarette Cigarettes Per Day: 2 Use of substances other than those prescribed or required for medical reasons: Yes Substance Use Type: Marijuana Substance Use Frequency: Daily Have you been hit, kicked, punched, or otherwise hurt by someone within the past year? 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: Yes (Stress) Meds Allergies Allergy/AdvReac Type Severity Reaction Status Date / Time oxycodone [Percocet] Allergy Intermediate stomach Verified 02/11/25 06:59 pain SEASONAL ALLERGIES Allergy Unknown UNKNOWN Uncoded 02/11/25 06:59 Home Medications ?Medication ?Instructions ?Recorded ?Confirmed ?Last Taken ?Type lisinopril 2.5 mg tablet 2.5 mg PO QNOON 09/05/20 02/11/25 Unknown History metformin 500 mg tablet,extended 1,000 mg PO BID 09/05/20 02/11/25 Unknown History release 24 hr tramadol 50 mg tablet (Ultram) 50 mg PO Q8H PRN severe pain 09/05/20 02/11/25 Unknown History acetaminophen 650 mg 650 mg PO Q8H PRN Pain 04/24/21 02/11/25 Unknown History tablet,extended release albuterol sulfate 90 mcg/actuation 2 puff inhalation QID PRN Wheezing 04/24/21 02/11/25 02/11/25 05:00 History aerosol inhaler alcohol swabs 0 pad topical DAILY 04/24/21 01/13/25 Unknown History atorvastatin 40 mg tablet 40 mg PO BEDTIME 04/24/21 02/11/25 Unknown History fluticasone propionate 110 2 puff inhalation BID 04/24/21 02/11/25 02/11/25 05:00 History mcg/actuation HFA aerosol inhaler (Flovent HFA) fluticasone propionate 50 2 spray intranasal DAILY PRN 04/24/21 02/11/25 Unknown History mcg/actuation nasal Allergy Symptoms spray,suspension (Flonase Allergy Relief) glipizide 5 mg tablet 10 mg PO BID 04/24/21 02/11/25 Unknown History haloperidol 5 mg tablet See Rx Instructions PO BID 04/24/21 02/11/25 02/11/25 05:00 History bupropion HCl 300 mg 24 hr tablet, 300 mg PO DAILY 06/07/22 02/11/25 02/11/25 05:00 History extended release aripiprazole 20 mg tablet 20 mg PO BEDTIME 09/24/22 02/11/25 02/11/25 05:00 History aspirin 81 mg tablet,delayed 81 mg PO DAILY 09/24/22 02/11/25 Unknown History release bupropion HCl 150 mg 24 hr tablet, 150 mg PO DAILY 09/24/22 02/11/25 02/11/25 05:00 History extended release clonazepam 1 mg tablet (Klonopin) 1 mg PO BID PRN Anxiety 04/04/23 02/11/25 02/11/25 05:00 History semaglutide 7 mg tablet (Rybelsus) 7 mg PO QAM 12/15/24 02/11/25 02/03/25 History ferrous sulfate 325 mg (65 mg 325 mg PO QNOON 02/01/25 02/11/25 Unknown History iron) tablet,delayed release loratadine 10 mg tablet 10 mg PO DAILY 02/01/25 02/11/25 Unknown History montelukast 10 mg tablet 10 mg PO QPM 02/01/25 02/11/25 Unknown History pantoprazole 20 mg tablet,delayed 20 mg PO DAILY@1700 02/01/25 02/11/25 Unknown History release Exam Exam Date and Time: 02/11/25 0720 Height,Weight and Vital Signs: Height 5 ft 7.75 in Weight 94.801 kg Last Vital Signs Pulse 85 02/01/25 10:06 Resp 16 02/01/25 10:06 BP 111/65 02/01/25 10:06 Pulse Ox 95 02/01/25 10:06 O2 Del Method Room Air 02/01/25 10:06 Vital Signs Pulse Rate 85 02/01/25 10:06 Respiratory Rate 16 02/01/25 10:06 Blood Pressure 111/65 02/01/25 10:06 Pulse Oximetry 95 02/01/25 10:06 Oxygen Delivery Method Room Air 02/01/25 10:06 Temperature 97.1 F 02/11/25 06:40 Pulse Rate 70 02/11/25 06:40 Respiratory Rate 16 02/11/25 06:40 Blood Pressure 100/61 02/11/25 06:40 Pulse Oximetry 95 02/11/25 06:40 Oxygen Delivery Method Room Air 02/11/25 06:40 Airway Mallampati Class: III TM Dist: <=3cm Neck ROM: Full Partial: Upper Heart: S1S2 Lungs: CTAB Assessment and Plan Assessment Anesthesia Assessment: Anesthesia Plan Discussed and Chart Reviewed Final Anesthetic Review Family History of Problems with Anesthesia: No History of Problems with Anesthesia: No NPO: Yes ASA Class: III Final Preanesthetic Review: No Changes in Pt Med Stat, Meds/Allgs Chart Reviewed, Consent Obtained/Reviewed and Anes Risks/Benef Reviewed Patient Risk: Intermediate Procedure Risk: High Anesthetic Plan Anesthetic Plan: GA and Agree w/ Assess. and Plan Disposition: Standard PACU
[2025-02-11] MEDS: ceFAZolin Sodium/Dextrose,Iso 2 GM/50 ML PIGGYBACK IV (07:45)
--- NOTE | 2025-02-11 11:22 | W.PM.OPN ---
Operative Note Operative Note Date of Service: 02/11/25 Pulmonary Resection Hilar Station: 1o L Mediastinal Station #1: 9L Mediastinal Station #2: 7 Mediastinal Station #3: 5 Procedure performed with curative intent?: Yes General Surg. - Synoptic Notes Pulmonary Resection Hilar Station: 1o L Mediastinal Station #1: 9L Mediastinal Station #2: 7 Mediastinal Station #3: 5 Procedure performed with curative intent?: Yes
--- NOTE | 2025-02-11 11:23 | P.OP_ITS ---
Operative Note Operative Note Date of Service: 02/11/25 Narrative: Preoperative diagnosis: [] Left lower lobe [id number] lung cancer Postop diagnosis: [] The same Procedure bronchoscopy, vats left lower lobectomy , mediastinal lymph node sampling, intercostal nerve block Surgeon: [] Lai Yarding Engineer: [] Miguel Angel Amaro Type of Anesthesia: [] Double-lumen general Indication for surgery: [] Early stage non-small cell lung cancer. Intraoperative findings limited striated no gross endoluminal pathology on bronchoscopy. Also used to assist anesthesia and placement of double-lumen tube. Intrathoracic findings demonstrated isolated left lower lobe lung lesion. No other gross intrathoracic pathology demonstrated. Mediastinal lymph node stations sampled included 10L,9L, 5, and 7 Findings: []. Patient brought to the operating room, placed on operative table supine position, after an adequate level of double-lumen general anesthesia was induced, patient underwent bronchoscopy with findings noted above. Patient was then placed in the right lateral decubitus position, and left chest was prepped and draped in usual sterile fashion. Using anterior and posterior working ports through the anterior and posterior axillary line 7th intercostal space respectively, and a small axillary incision made in the 4th intercostal space with wound protector placed, intrathoracic findings were as noted above. Lung was retracted anteriorly and inferior pulmonary ligament was taken down using ligature device. Inferior pulmonary vein was then encircled, skeletonized, isolated with silk tie, and transected using endoscopic vascular stapler. Next the fissure was entered and the arterial supply to the left lower lobe was identified. Superior segmental and basal branches were identified. Lingular artery was preserved. The former two were skeletonized, encircled with silk ties, and sequentially each resected using endoscopic vascular staplers. Fissures were completed anteriorly and posteriorly using NOREEN staplers. Bronchus was then approached with the superior segmental bronchus branched early and the basilar bronchus were each identified, encircled, and heavy wire stapler placed on each sequentially and remaining lung reinflated with no compromise to the left upper lobe or lingula. Staplers were uneventfully fired. Chest cavity was filled with saline and remaining lung re-expanded with no air leak from bronchial stumps. Throughout the dissection, mediastinal lymph node sampling from stations as noted above was performed and each separately sent to pathology for permanent evaluation. Chest cavity was irrigated, secured hemostasis, and through the anterior port, 24 Ethiopian chest tube was advanced to the apex and secured to the skin using 0 silk suture. Port sites were closed using deep followed by dermal interrupted 2-0 and 3-0 Vicryl sutures. Access incision had wound protector removed and was closed in the following manner; muscular layer was closed using running 0 Vicryl suture. Subcutaneous tissue was closed using running 2-0 Vicryl suture. Skin was closed using running subcuticular 4-0 Vicryl suture followed by Steri- Strips and sterile dressings. Chest tube was connected to Pleur-evac and lung re-expanded with no significant air leak appreciated. Intercostal nerve block at all port sites was performed using Exparel. Sponge, needle, and instrument counts reported correct. Patient tolerated the procedure well and emerged from anesthesia stable condition. Postprocedure x- ray recovery room pending. EBL minimal less than 100 cc
[2025-02-11] MEDS: HYDROmorphone HCl 0.5 MG/0.5 ML SYRINGE IVPUSH ×2 (11:50→18:19)
[2025-02-11] MEDS: Acetaminophen 1,000 MG/100 ML PIGGYBACK 400 MG IV ×2 (15:35→22:44)
--- NOTE | 2025-02-11 16:51 | PHA.MEDREC ---
Addendum entered by Sada Thomas RPh 02/11/25 17:21: Reviewed by [facility]. Pt states she is no longer taking trazodone, the additional 1/2 tab of clonazepam, pantoprazole BID (only in the evening), spriva or flovent (not in claims), and nicotine patches. These are all not on the med rec. Original Note: Pharmacy Consult ? Medication Reconciliation Pharmacy has completed the medication reconciliation. Spoke with patient and she was sleepy but was able to confirm her medications and how she takes them. She confirmed her Haloperidol 5mg tab and stated she only takes 1/2 tab at bedtime and she started taking it like that herself and has been ok taking it that way. The patient confirmed she stopped taking the Trazodone in the last few weeks. The patient confirmed she last took her medications this morning.
[2025-02-11] MEDS: Insulin Lispro 100 UNIT/ML 3 ML VIAL SUBCUT ×2 (17:45→22:44)
[2025-02-11] MEDS: ondansetron HCL 4 MG/2 ML VIAL IVPUSH (17:46)
[2025-02-11 17:49] LABS: Glucose, Whole Blood 254 mg/dL (60-115)
[2025-02-11] MEDS: 0.9 % Sodium Chloride Flush 3 ML SYRINGE IVFLUSH (18:20)
--- NOTE | 2025-02-11 20:13 | P.CONHOSP_ITS ---
History of Present Illness Data of Consult Service Date: 02/11/25 Primary Care Provider: Linda Murphy DO HPI Reason for consult: Medical management Pt is a 54-year-old female with a PMH significant for [id number] type 2 diabetes, HTN, HLD, thyroid cancer s/p thyroidectomy, COPD, GERD, DANIEL on 2L NC at night, and schizoaffective disorder, and bipolar disorder who was admitted to the hospital under thoracic surgery services for elective left lower lobe lobectomy. Pt underwent recent biopsy that was consistent with [id number]-timzn-cbak lung cancer of left lower lobe. Hospitalist consult for medical management. POD0. Pt seen and evaluated in her room where she is resting comfortably in bed. Pt complains of left-sided pleuritic chest pain and tightness radiating to her left back. Worse with movement or deep inspiration. Pt reports had some nausea and vomiting earlier in the day that has resolved with Zofran. Also experienced some SOB shortly after being brought to the floor that was all eviated with home inhalers. Currently denies significant SOB or difficulty breathing. Has not yet moved her bowels or passed gas, though notes she has urinated. Denies fever, chills. Review of Systems Review of Systems: Negative except for that which is stated in the HPI. [facility] Medical History Hx of radiation therapy Sciatica of right side Back pain Arthritis Anemia Thyroid disease Anxiety On home oxygen therapy Incomplete right bundle branch block (RBBB) Uterine fibroid DANIEL (obstructive sleep apnea) Cervical cancer Schizoaffective disorder Pancreatitis Type 2 diabetes mellitus JES[place] positive Vitamin D deficiency Postoperative hypothyroidism History of thyroid cancer Morbid obesity Sacroiliitis Multinodular goiter HLD (hyperlipidemia) COPD (chronic obstructive pulmonary disease) GERD (gastroesophageal reflux disease) Bipolar 1 disorder Hypercalcemia Goiter Hypothyroidism Family History Father Bipolar 1 disorder Mother Diabetes mellitus Hypertension Hyperlipidemia COPD (chronic obstructive pulmonary disease) Paternal Aunt Breast cancer Sister Cervical cancer Surgical History Hx of total thyroidectomy Hx of tubal ligation Hx of cholecystectomy Social History Household Members: Family Household Members Other:: duplex Housing: House Are you a primary weekend caregiver to a significant other at home: No Do you presently have visiting nurse or other home services: No Alcohol intake: never Patient Tobacco Use Status: Former Tobacco user Tobacco use type: Cigarette Cigarettes Per Day: 2 Smoked in Last 30 Days: No Patient Interested in Nicotine Replacement: No Patient Given Instructions on How to Stop Smoking: No Second Hand Smoke Exposure: No Use of substances other than those prescribed or required for medical reasons: Yes Substance Use Type: Marijuana Substance Use Frequency: Occasionally Last Used Substance: Weeks (ago) Currently Displaying Signs/Symptoms of Drug Intoxication Withdrawal: No Any prior treatment program specific to substance use: No Have you been hit, kicked, punched, or otherwise hurt by someone within the past year? 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: Yes (Stress) Meds Allergies Allergy/AdvReac Type Severity Reaction Status Date / Time oxycodone [Percocet] Allergy Intermediate stomach Verified 02/11/25 06:59 pain SEASONAL ALLERGIES Allergy Unknown UNKNOWN Uncoded 02/11/25 06:59 Active Medications: Current Medications Albuterol Sulfate (Albuterol Sulfate 90 Mcg 8 Gm Inhaler) 2 puff INHALE QID PRN PRN Reason: Wheezing Aripiprazole (Aripiprazole 20 Mg Tablet) 20 mg PO BEDTIME RACHEL Atorvastatin Calcium (Atorvastatin Calcium 40 Mg Tablet) 40 mg PO BEDTIME RACHEL Bupropion HCl (Bupropion Hcl Xl 300 Mg Tab.Er.24h) 300 mg PO DAILY RACHEL Bupropion HCl (Bupropion Hcl Xl 150 Mg Tab.Er.24h) 150 mg PO DAILY RACHEL Calcium Carbonate (Calcium Carbonate 750 Mg Tab.Chew) 750 mg PO Q4H PRN PRN Reason: Heartburn Clonazepam (Clonazepam 1 Mg Tablet) 1 mg PO BID PRN PRN Reason: Anxiety Dextrose (Dextrose 50 % 25 Gm/50 Ml Syringe) 25 gm IVPUSH Q15M PRN; Protocol PRN Reason: per Hypoglycemia Standing Ord. Docusate Sodium (Docusate Sodium 100 Mg Capsule) 100 mg PO BID [facility] Ferrous Sulfate (Ferrous Sulfate 324 Mg Tablet.) 324 mg PO DAILY@1200 [facility] Fluticasone Propionate (Fluticasone Propionate Nasal 16 Gm [place]) 2 spray NOSTRIL-B DAILY PRN PRN Reason: Allergy Symptoms Glucose (Glucose Gel 15 Gm Gel..Gram.) 15 gm PO Q15M PRN; Protocol PRN Reason: per Hypoglycemia Standing Ord. Haloperidol (Haloperidol 5 Mg Tablet) 2.5 mg PO BEDTIME [facility] Hydromorphone HCl (Hydromorphone Hcl 0.5 Mg/0.5 Ml Syringe) 0.5 mg IVPUSH Q3H PRN; Protocol PRN Reason: Pain, Severe (Pain Scale 7-10) Last Admin: 02/11/25 18:19 Dose: 0.5 mg Lactated Ringer's (Lr) 1,000 mls @ 100 mls/hr IVCONT .Q10H [facility] Last Admin: 02/11/25 17:49 Dose: 100 mls/hr Acetaminophen (Ofirmev) 1,000 mg in 100 mls @ 400 mls/hr IV Q6H [facility] Last Infusion: 02/11/25 15:56 Dose: Infused Insulin Human Lispro (Insulin Lispro 100 Unit/Ml 3 Ml Vial) 0 unit SUBCUT QIDACHS [facility]; Protocol Last Admin: 02/11/25 17:45 Dose: 6 unit Loratadine (Loratadine 10 Mg Tablet) 10 mg PO DAILY [facility] Magnesium Hydroxide (Milk Of Magnesia 30 Ml Oral.Susp) 30 ml PO DAILY PRN PRN Reason: Constipation Melatonin (Melatonin 3 Mg Tablet) 6 mg PO BEDTIME PRN PRN Reason: Insomnia Montelukast Sodium (Montelukast Sodium 10 Mg Tablet) 10 mg PO BEDTIME [facility] Non-Formulary Medication (Levothyroxine [Tirosint-Michelle]) 400 mcg PO DAILY [facility] Omeprazole (Omeprazole 20 Mg Capsule.) 20 mg PO DAILY@1630 [facility] Ondansetron HCl (Ondansetron Hcl 4 Mg/2 Ml Vial) 4 mg IVPUSH Q6H PRN PRN Reason: Nausea and Vomiting Last Admin: 02/11/25 17:46 Dose: 4 mg Polyethylene Glycol (Polyethylene Glycol 3350 17 Gm Powd.Pack) 17 gm PO DAILY RACHEL Sodium Chloride (0.9 % Sodium Chloride Flush 3 Ml Syringe) 3 ml IVFLUSH QSHIFT RACHEL Last Admin: 02/11/25 18:20 Dose: 3 ml Tramadol HCl (Tramadol Hcl 50 Mg Tablet) 100 mg PO Q4H PRN PRN Reason: Pain, Moderate(Pain Scale 4-6) Home Medications ?Medication ?Instructions ?Recorded ?Confirmed ?Last Taken ?Type lisinopril 2.5 mg tablet 2.5 mg PO DAILY@1200 09/05/20 02/11/25 Unknown History metformin 500 mg tablet,extended 1,000 mg PO BID 09/05/20 02/11/25 Unknown History release 24 hr acetaminophen 650 mg 650 mg PO Q8H PRN Pain 04/24/21 02/11/25 Unknown History tablet,extended release albuterol sulfate 90 mcg/actuation 2 puff inhalation QID PRN Wheezing 04/24/21 02/11/25 02/11/25 05:00 History aerosol inhaler atorvastatin 40 mg tablet 40 mg PO BEDTIME 04/24/21 02/11/25 Unknown History glipizide 5 mg tablet 10 mg PO BID 04/24/21 02/11/25 Unknown History haloperidol 5 mg tablet 2.5 mg PO BEDTIME 04/24/21 02/11/25 02/10/25 History bupropion HCl 300 mg 24 hr tablet, 300 mg PO DAILY 06/07/22 02/11/25 02/11/25 05:00 History extended release aripiprazole 20 mg tablet 20 mg PO BEDTIME 09/24/22 02/11/25 02/11/25 05:00 History aspirin 81 mg tablet,delayed 81 mg PO DAILY 09/24/22 02/11/25 Unknown History release bupropion HCl 150 mg 24 hr tablet, 150 mg PO DAILY 09/24/22 02/11/25 02/11/25 05:00 History extended release clonazepam 1 mg tablet (Klonopin) 1 mg PO BID PRN Anxiety 04/04/23 02/11/25 02/11/25 05:00 History semaglutide 7 mg tablet (Rybelsus) 7 mg PO DAILY 12/15/24 02/11/25 02/03/25 History loratadine 10 mg tablet 10 mg PO DAILY 02/01/25 02/11/25 Unknown History montelukast 10 mg tablet 10 mg PO BEDTIME 02/01/25 02/11/25 02/11/25 History pantoprazole 20 mg tablet,delayed 20 mg PO DAILY@1700 02/01/25 02/11/25 Unknown History release ascorbic acid (vitamin C) 250 mg 250 mg PO BID@1200,2100 02/11/25 02/11/25 02/11/25 History tablet ferrous fumarate 324 mg (106 mg 324 mg PO BID@1200,2100 02/11/25 02/11/25 02/11/25 History iron) tablet (Ferrocite) hydroxyzine pamoate 50 mg capsule 50 mg PO TID PRN anxiety 02/11/25 02/11/25 Unknown History ipratropium 0.5 mg-albuterol 3 mg 3 ml inhalation QID PRN asthma 02/11/25 02/11/25 Unknown History (2.5 mg base)/3 mL nebulization soln mometasone 100 mcg/actuation HFA 2 puff inhalation BID 02/11/25 02/11/25 History aerosol inhaler (Asmanex HFA) omega-3 fatty acids 1,000 mg 1,000 mg PO DAILY 02/11/25 02/11/25 02/11/25 History capsule vit no.95-ferrous 1 tab PO DAILY 02/11/25 02/11/25 02/11/25 History fumarate 28 mg-folic acid 800 mcg tablet () tramadol 50 mg tablet 50 mg PO Q8H PRN severe pain 02/11/25 02/11/25 Unknown History Physical Exam Vital Signs and Narrative: Vital Signs: Last Vital Signs Temp 98.2 F 02/11/25 20:00 Pulse 99 02/11/25 20:00 Resp 18 02/11/25 20:00 BP 99/58 L 02/11/25 20:00 Pulse Ox 100 02/11/25 20:00 O2 Del Method Nasal Cannula 02/11/25 20:00 O2 Flow Rate 3 02/11/25 20:00 BMI result Body Mass Index 32.2 General: AOx3, no acute distress Resp: CTA bilaterally though significantly diminished, absent left lower lobe. Chest tube in place. CVS: S1, S2, regular rate, tachycardic GI: +BS, NT, no distention Skin: Warm, dry Neuro: Cranial nerves II-XII grossly intact bilaterally. Motor grossly intact bilaterally Extremities: No edema Psych: Appropriate affect Results Labs Labs: Laboratory Results - last 24 hr 02/11/25 02/11/25 06:35 16:41 POC Glucose 152 H 254 H Imaging Radiologist's Impressions: Impressions Chest X-Ray 02/11/25 12:30 IMPRESSION: 1. Left chest tube in place. Trace left pneumothorax. 2. Airspace opacity at the left lung base which may represent atelectasis or pneumonia. Electronically signed by: Dillon Botello MD 02/11/2025 12:59 PM EDT RP Assessment and Plan (1) Primary malignant neoplasm of left lower lobe of lung: Status: Acute Plan Pt is a 54-year-old female with a PMH significant for [id number] type 2 diabetes, HTN, HLD, thyroid cancer s/p thyroidectomy, COPD, GERD, DANIEL on 2L NC at night, and schizoaffective disorder, and bipolar disorder who was admitted to the hospital under thoracic surgery services for elective left lower lobe lobectomy. Pt underwent recent biopsy that was consistent with [id number] lung cancer of left lower lobe. Hospitalist consult for medical management. POD0. [id number] lung cancer S/p left lower lobectomy Plan as per thoracic surgery Lds-ubrjoup-hjzqgaeuh type 2 diabetes Hold metformin, semaglutide Continue glipizide Will place on sliding scale insulin Diabetic diet COPD Not in acute exacerbation Continue home inhalers HTN BP has been slightly soft postop Hold lisinopril for now Resume as warranted Hypothyroidism Continue levothyroxine GERD Continue PPI Mood disorder Continue home mood stabilizers Thank you for allowing us to participate in the care of this patient. Signing off at this time. Please re-consult if any acute complaints or issues arise.
[2025-02-11 21:09] LABS: Glucose, Whole Blood 227 mg/dL (60-115)
[2025-02-11 22:04] LABS: MANUAL DIFF FLAG NO
[2025-02-11 22:07] LABS: Basophils Percent Auto 0.1 % (0-2); Hematocrit 30.1 % (37.0-47.0); Hemoglobin 10.4 g/dl (12.0-16.0); Imm Gran Abs Auto 0.15 X10*3/uL (0.00-0.03); Imm Gran Pct Auto 0.7 % (0.0-0.4); Lymphocytes Absolute Auto 1.2 X10*3/uL (1.2-4.9); Lymphocytes Percent Auto 5.7 % (20-40); Mean Corpuscular HGB Conc 34.6 g/dl (31.0-35.0); Mean Corpuscular Hemoglobin 28.9 pg (27.0-33.0); Mean Corpuscular Volume 83.6 fL (80.0-98.0); Monocytes Absolute Auto 1.5 X10*3/uL (0.1-1.2); Monocytes Percent Auto 7.2 % (2-11); Neutrophils Absolute Auto 18.1 x10*3/uL (2.0-8.3); Neutrophils Percent Auto 86.3 % (45-73); Platelet Count 288 X10*3/uL (160-400); Red Cell Distribution Width 14.1 % (11.0-16.0); White Blood Count 20.9 X10*3/uL (4.8-10.8)
[2025-02-11] MEDS: ARIPiprazole 20 MG TABLET PO (22:43)
[2025-02-11] MEDS: HaloperidoL 5 MG TABLET 2.5 MG PO (22:43)
[2025-02-11] MEDS: Montelukast Sodium 10 MG TABLET PO (22:44)
[2025-02-11] MEDS: Docusate Sodium 100 MG CAPSULE PO (22:44)
[2025-02-12] VITALS (12 sets, daily range): BP systolic 92–129; BP diastolic 46–61; PULSE 97–115; RESP 14–20; TEMP 36–36.9; O2SAT 94–100
[2025-02-12] MEDS: ondansetron HCL 4 MG/2 ML VIAL IVPUSH ×2 (01:47→08:53)
[2025-02-12] MEDS: HYDROmorphone HCl 0.5 MG/0.5 ML SYRINGE IVPUSH ×5 (01:48→22:03)
[2025-02-12] MEDS: Lactated Ringers 1,000 ML 100 ML IVCONT (03:50)
[2025-02-12] MEDS: Acetaminophen 1,000 MG/100 ML PIGGYBACK 400 MG IV ×3 (05:45→16:32)
[2025-02-12 06:36] LABS: Basophils Percent Auto 0.2 % (0-2); Eosinophils Percent Auto 0.1 % (0-4); Hematocrit 25.5 % (37.0-47.0); Hemoglobin 8.6 g/dl (12.0-16.0); Imm Gran Abs Auto 0.12 X10*3/uL (0.00-0.03); Imm Gran Pct Auto 0.7 % (0.0-0.4); Lymphocytes Absolute Auto 2.3 X10*3/uL (1.2-4.9); Lymphocytes Percent Auto 12.4 % (20-40); MANUAL DIFF FLAG SCAN; Mean Corpuscular HGB Conc 33.7 g/dl (31.0-35.0); Mean Corpuscular Hemoglobin 29.3 pg (27.0-33.0); Mean Corpuscular Volume 86.7 fL (80.0-98.0); Mean Platelet Volume 10.3 fL (9.4-12.3); Monocytes Absolute Auto 1.8 X10*3/uL (0.1-1.2); Monocytes Percent Auto 10.1 % (2-11); Neutrophils Absolute Auto 13.8 x10*3/uL (2.0-8.3); Neutrophils Percent Auto 76.5 % (45-73); Platelet Count 276 X10*3/uL (160-400); Red Blood Count 2.94 X10*6/uL (4.20-5.50); Red Cell Distribution Width 14.2 % (11.0-16.0); SCAN SMEAR FLAG 1; White Blood Count 18.1 X10*3/uL (4.8-10.8)
[2025-02-12 06:57] LABS: Anion Gap 9 (12-20); Blood Urea Nitrogen 10 mg/dL (9-16); Calcium 8.3 mg/dL (8.4-10.2); Carbon Dioxide 32 mmol/L (22-29); Chloride 103 mmol/L (96-108); Estimated Glomerular Filt Rate 56; Glucose Fasting 165 mg/dL (60-99); Potassium 4.7 mmol/L (3.3-5.1); Sodium 139 mmol/L (135-145)
[2025-02-12 07:31] LABS: SLIDE REVIEW VERIFIED
[2025-02-12 07:36] LABS: Glucose, Whole Blood 180 mg/dL (60-115)
--- NOTE | 2025-02-12 08:02 | P.PNGS_ITS ---
Subjective Subjective Date of Service: 02/12/25 <Mini Dominguez - Last Filed: 02/12/25 08:45> 02/12/25 <Rose Michelle PA-C - Last Filed: 02/12/25 09:53> 02/12/25 <Mario Hoyt MD - Last Filed: 02/12/25 11:10> Interval history: Patient reports minimal pain this morning, 2 episodes of vomiting yesterday, but nausea improved today and woke up hungry. Reports occasional coughing, some SOB when ambulating. <Mini Pattersono - Last Filed: 02/12/25 08:45> Had significant amount of bloody drainage from posterior port site last night, required two suture placements with hemostasis achieved. Patient reports minimal pain this morning, 2 episodes of vomiting yesterday, but nausea improved today and woke up hungry. Tolerating solid diet without further nausea. Reports occasional coughing, some SOB when ambulating. Denies dizziness, lightheadedness, chest pain. <Rose Michelle PA-C - Last Filed: 02/12/25 09:53> Physical Exam 2 Vital Signs: Vital Signs: Last Vital Signs Temp 96.8 F 02/12/25 03:49 Pulse 115 H 02/12/25 03:49 Resp 16 02/12/25 03:49 BP 116/55 L 02/12/25 03:49 Pulse Ox 97 02/12/25 03:49 O2 Del Method Nasal Cannula 02/12/25 03:49 O2 Flow Rate 1.5 02/12/25 03:49 BMI result Body Mass Index 32.2 <Mini Dominguez - Last Filed: 02/12/25 08:45> Const: General: alert and awake <Mini Dominguez - Last Filed: 02/12/25 08:45> Orientation/consciousness: patient oriented x3 <Mini Dominguez - Last Filed: 02/12/25 08:45> Chest: Other: Incision sites with bandage, chest tube draining blood. <Mini Pattersono - Last Filed: 02/12/25 08:45> Other: left VATs dressings intact left posterior port site dry appearing, two silk sutures in place chest tube with sanguineous output, no air leak <RAJEEV Gallegos Last Filed: 02/12/25 09:53> Resp: Effort & Inspection: able to speak in complete sentences <Minieleanor Dominguez Last Filed: 02/12/25 08:45> Effort & Inspection: normal respiratory effort, not labored, not tachypneic and no use of accessory muscles <RAJEEV Gallegos Last Filed: 02/12/25 09:53> Cardio: Rate: regular rate <Minieleanor MckinleyAngelica Last Filed: 02/12/25 08:45> Rhythm: regular rhythm <Mini Angelica Last Filed: 02/12/25 08:45> Skin: General skin exam: no rashes or lesions noted <RAJEEV Gallegos Last Filed: 02/12/25 09:53> Neuro: General: patient oriented x3 <Mini Angelica Last Filed: 02/12/25 08:45> Objective Data Active Medications Albuterol Sulfate (Albuterol Sulfate 90 Mcg 8 Gm Inhaler) 2 puff INHALE QID PRN PRN Reason: Wheezing Aripiprazole (Aripiprazole 20 Mg Tablet) 20 mg PO BEDTIME [facility] Last Admin: 02/11/25 22:43 Dose: 20 mg Documented By: SHAYE Atorvastatin Calcium (Atorvastatin Calcium 40 Mg Tablet) 40 mg PO BEDTIME [facility] Last Admin: 02/11/25 23:10 Dose: Not Given Documented By: SHAYE Non-Admin Reason: Patient Refused Comments: pt worried medication would cause nausea. Bupropion HCl (Bupropion Hcl Xl 300 Mg Tab.Er.24h) 300 mg PO DAILY [facility] Bupropion HCl (Bupropion Hcl Xl 150 Mg Tab.Er.24h) 150 mg PO DAILY [facility] Calcium Carbonate (Calcium Carbonate 750 Mg Tab.Chew) 750 mg PO Q4H PRN PRN Reason: Heartburn Clonazepam (Clonazepam 1 Mg Tablet) 1 mg PO BID PRN PRN Reason: Anxiety Dextrose (Dextrose 50 % 25 Gm/50 Ml Syringe) 25 gm IVPUSH Q15M PRN; Protocol PRN Reason: per Hypoglycemia Standing Ord. Docusate Sodium (Docusate Sodium 100 Mg Capsule) 100 mg PO BID [facility] Last Admin: 02/11/25 22:44 Dose: 100 mg Documented By: SHAYE Ferrous Sulfate (Ferrous Sulfate 324 Mg Tablet.Dr) 324 mg PO DAILY@1200 [facility] Fluticasone Propionate (Fluticasone Propionate Nasal 16 Gm [place]) 2 spray NOSTRIL-B DAILY PRN PRN Reason: Allergy Symptoms Glipizide (Glipizide 10 Mg Tablet) 10 mg PO BID [facility] Glucose (Glucose Gel 15 Gm Gel..Gram.) 15 gm PO Q15M PRN; Protocol PRN Reason: per Hypoglycemia Standing Ord. Haloperidol (Haloperidol 5 Mg Tablet) 2.5 mg PO BEDTIME [facility] Last Admin: 02/11/25 22:43 Dose: 2.5 mg Documented By: SHAYE Hydromorphone HCl (Hydromorphone Hcl 0.5 Mg/0.5 Ml Syringe) 0.5 mg IVPUSH Q3H PRN; Protocol PRN Reason: Pain, Severe (Pain Scale 7-10) Last Admin: 02/12/25 01:48 Dose: 0.5 mg Documented By: SHAYE Hydroxyzine HCl (Hydroxyzine Hcl 50 Mg Tablet) 50 mg PO TID PRN PRN Reason: anxiety Lactated Ringer's (Lr) 1,000 mls @ 100 mls/hr IVCONT .Q10H [facility] Last Admin: 02/12/25 03:50 Dose: 100 mls/hr Documented By: SHAYE Acetaminophen (Ofirmev) 1,000 mg in 100 mls @ 400 mls/hr IV Q6H [facility] Last Infusion: 02/12/25 06:00 Dose: Infused Documented By: SHAYE Insulin Human Lispro (Insulin Lispro 100 Unit/Ml 3 Ml Vial) 0 unit SUBCUT QIDACHS [facility]; Protocol Last Admin: 02/11/25 22:44 Dose: 4 unit Documented By: SHAYE Loratadine (Loratadine 10 Mg Tablet) 10 mg PO DAILY [facility] Magnesium Hydroxide (Milk Of Magnesia 30 Ml Oral.Susp) 30 ml PO DAILY PRN PRN Reason: Constipation Melatonin (Melatonin 3 Mg Tablet) 6 mg PO BEDTIME PRN PRN Reason: Insomnia Montelukast Sodium (Montelukast Sodium 10 Mg Tablet) 10 mg PO BEDTIME [facility] Last Admin: 02/11/25 22:44 Dose: 10 mg Documented By: SHAYE Non-Formulary Medication (Levothyroxine [Tirosint-Michelle]) 400 mcg PO DAILY [facility] Omeprazole (Omeprazole 20 Mg Capsule.Dr) 20 mg PO DAILY@1630 [facility] Ondansetron HCl (Ondansetron Hcl 4 Mg/2 Ml Vial) 4 mg IVPUSH Q6H PRN PRN Reason: Nausea and Vomiting Last Admin: 02/12/25 01:47 Dose: 4 mg Documented By: SHAYE Comments: slight nausea reported. Polyethylene Glycol (Polyethylene Glycol 3350 17 Gm Powd.Pack) 17 gm PO DAILY [facility] Sodium Chloride (0.9 % Sodium Chloride Flush 3 Ml Syringe) 3 ml IVFLUSH QSHIFT [facility] Last Admin: 02/11/25 23:37 Dose: Not Given Documented By: SHAYE Non-Admin Reason: IV Running Tramadol HCl (Tramadol Hcl 50 Mg Tablet) 100 mg PO Q4H PRN PRN Reason: Pain, Moderate(Pain Scale 4-6) <Mini Angelica - Last Filed: 02/12/25 08:45> Labs CBC & Chem 7: 02/12/25 05:55 02/12/25 05:55 <Mini Angelica - Last Filed: 02/12/25 08:45> Labs: Laboratory Results - last 24 hr 02/11/25 02/11/25 02/11/25 16:41 20:56 22:00 MCV 83.6 MCH 28.9 MCHC 34.6 RDW 14.1 Plt Count 288 MPV 10.0 Immature Gran % (Auto) 0.7 H Neut % (Auto) 86.3 H Lymph % (Auto) 5.7 L [place] % (Auto) 7.2 Eos % (Auto) 0.0 Baso % (Auto) 0.1 Lymph # (Auto) 1.2 [place] # (Auto) 1.5 H Eos # (Auto) 0.0 Baso # (Auto) 0.0 Abs Immat Gran (auto) 0.15 H Absolute Neuts (auto) 18.1 H Absolute Nucleated RBC 0.000 Nucleated RBC % (auto) 0.0 Smear Tech's Comments Anion Gap Estim Creat Clear Calc Estimated GFR POC Glucose 254 H 227 H Fasting Glucose Calcium 02/12/25 02/12/25 05:55 07:32 MCV 86.7 MCH 29.3 MCHC 33.7 RDW 14.2 Plt Count 276 MPV 10.3 Immature Gran % (Auto) 0.7 H Neut % (Auto) 76.5 H Lymph % (Auto) 12.4 L [place] % (Auto) 10.1 Eos % (Auto) 0.1 Baso % (Auto) 0.2 Lymph # (Auto) 2.3 [place] # (Auto) 1.8 H Eos # (Auto) 0.0 Baso # (Auto) 0.0 Abs Immat Gran (auto) 0.12 H Absolute Neuts (auto) 13.8 H Absolute Nucleated RBC 0.000 Nucleated RBC % (auto) 0.0 Smear Tech's Comments VERIFIED Anion Gap 9 L Estim Creat Clear Calc 75.0 Estimated GFR 56 POC Glucose 180 H Fasting Glucose 165 H Calcium 8.3 L D <Mini Angelica - Last Filed: 02/12/25 08:45> Procedures Date of Service Date of Service: 02/12/25 <Mini Angelica - Last Filed: 02/12/25 08:45> 02/12/25 <Rose Michelle PA-C - Last Filed: 02/12/25 09:53> 02/12/25 <Maroi Hoyt MD - Last Filed: 02/12/25 11:10> Progress Note: A&P Assessment and plan (1) Primary malignant neoplasm of left lower lobe of lung: Status: Acute <Mini Angelica - Last Filed: 02/12/25 08:45> Assessment and Plan: Tisha is post op day 1 from thorascopic left lobectomy. She reports 2 episodes of emesis yesterday, and coughing up blood tinged sputum twice. One of her incision sites was leaking blood last night and was sutured back up. Chest tube draining blood, and when clamped, no air bubbles presented. Her pain is being managed with ofirmev and hydromorphone. No bowel movement or gas passed, was able to urinate. Today her diet will be increased, she is encouraged to do spirometry 10x every hour and ambulate, patient seemed to be feeling well with mild pain. <Mini Angelica - Last Filed: 02/12/25 08:45> Tisha is post op day 1 from thorascopic left lobectomy. She reports 2 episodes of emesis yesterday, and coughing up blood tinged sputum twice. One of her incision sites was leaking blood last night and was sutured back up. Chest tube draining blood, and when clamped, no air bubbles presented. Her pain is being managed with ofirmev and hydromorphone. No bowel movement or gas passed, was able to urinate. Today her diet will be increased, she is encouraged to do spirometry 10x every hour and ambulate, patient seemed to be feeling well with mild pain. Agree with above assessment and plan by Mini BARRIOS. POD #1 s/p bronchoscopy, vats left lower lobectomy , mediastinal lymph node sampling, intercostal nerve block. Pain is well controlled. Having sanguineous output from chest tube, downtrending, drop in H/H. She however is not symptomatic and is hemodynamically stable, will therefore hold off on transfusion. CXR this am shows improving apical air space. Keep chest tube to suction today, if air space resolved and no air leak can place to water seal tomorrow. Repeat CBC later today and tomorrow morning. Encouraged OOB/ambulation and increasing activity, incentive spirometry 10x/hr. Patient and daughter comfortable with plan. Cont pain control. <Rose Michelle PA-C - Last Filed: 02/12/25 09:53> Tisha is post op day 1 from thorascopic left lobectomy. She reports 2 episodes of emesis yesterday, and coughing up blood tinged sputum twice. One of her incision sites was leaking blood last night and was sutured back up. Chest tube draining blood, and when clamped, no air bubbles presented. Her pain is being managed with ofirmev and hydromorphone. No bowel movement or gas passed, was able to urinate. Today her diet will be increased, she is encouraged to do spirometry 10x every hour and ambulate, patient seemed to be feeling well with mild pain. Agree with above assessment and plan by Mini BARRIOS. POD #1 s/p bronchoscopy, vats left lower lobectomy , mediastinal lymph node sampling, intercostal nerve block. Pain is well controlled. Having sanguineous output from chest tube, downtrending, drop in H/H. She however is not symptomatic and is hemodynamically stable, will therefore hold off on transfusion. CXR this am shows improving apical air space. Keep chest tube to suction today, if air space resolved and no air leak can place to water seal tomorrow. Repeat CBC later today and tomorrow morning. Encouraged OOB/ambulation and increasing activity, incentive spirometry 10x/hr. Patient and daughter comfortable with plan. Cont pain control. As noted above. Patient was seen and evaluated as well by me <Mario Hoyt MD - Last Filed: 02/12/25 11:10> Time Spent With Patient Time: Total time managing care of this patient today ____ minutes. <Mini Dominguez - Last Filed: 02/12/25 08:45> Quality Stroke Does the patient have a stroke diagnosis?: No <Rose Michelle PA-C - Last Filed: 02/12/25 09:53> VTE Prior VTE?: No <Rose Michelle PA-C - Last Filed: 02/12/25 09:53> VTE Risk Level:: Surgical - low <Mini Dominguez - Last Filed: 02/12/25 08:45> VTE Device Contraindication: N/A - Device Ordered <Mini Dominguez - Last Filed: 02/12/25 08:45> VTE Drug Contraindication: Treatment Not Indicated <Mini Dominguez - Last Filed: 02/12/25 08:45>
[2025-02-12] MEDS: Albuterol Sulfate 90 MCG 8 GM INHALER 2 PUFF INHALE (08:46)
[2025-02-12] MEDS: buPROPion HCl XL 300 MG TAB.ER.24H PO (08:52)
[2025-02-12] MEDS: polyethylene glycoL 3350 17 GM POWD.PACK PO (08:52)
[2025-02-12] MEDS: buPROPion HCl XL 150 MG TAB.ER.24H PO (08:53)
[2025-02-12] MEDS: Loratadine 10 MG TABLET PO (08:53)
[2025-02-12] MEDS: Insulin Lispro 100 UNIT/ML 3 ML VIAL SUBCUT ×3 (08:53→21:57)
[2025-02-12] MEDS: Docusate Sodium 100 MG CAPSULE PO ×2 (08:53→21:51)
[2025-02-12] MEDS: glipiZIDE 10 MG TABLET PO ×2 (08:53→21:51)
[2025-02-12] MEDS: 0.9 % Sodium Chloride Flush 3 ML SYRINGE IVFLUSH (09:26)
--- NOTE | 2025-02-12 09:36 | HO.POSTANES ---
Post Anesthesia Evaluation Post Anesthesia Evaluation Date of Service: 02/12/25 Vital Signs: Vital Signs Temp Pulse Resp BP Pulse Ox O2 Del Method O2 Flow Rate 02/12/25 08:46 97 18 02/12/25 08:00 98.2 F 97 18 92/54 L 94 Room Air 02/12/25 03:49 96.8 F 115 H 16 116/55 L 97 Nasal Cannula 1.5 02/12/25 02:18 20 02/12/25 01:48 20 02/12/25 01:40 98.0 F 102 H 18 107/52 L 95 1 02/11/25 22:54 98.7 F 103 H 16 110/54 L 99 Nasal Cannula 1.5 Anesthesia: General Endotracheal-GETA Mental Status: Awake Pain Control: Satisfactory Nausea/Vomiting: None Hydration: Adequate Anesthesia-Related Issues: No Anes. Related Issues
--- NOTE | 2025-02-12 09:48 | MHC.CM.PN ---
IMM 02/12/25, Pt lives with her and children, her dtr helps to care for her, she does not have home health services. HCP is on file and confirmed: Khal[facility]. For DME, she has nocturnal O2. Family to transport home at [place]. PCP confirmed: Linda Murphy. DCP: home, self care. CM to follow for DC needs.
[2025-02-12 11:46] LABS: Glucose, Whole Blood 198 mg/dL (60-115)
[2025-02-12] MEDS: Ferrous Sulfate 324 MG TABLET.DR PO (12:20)
[2025-02-12] MEDS: metFORMIN HCl ER 500 MG TAB.ER.24H 1000 MG PO ×2 (12:20→21:51)
[2025-02-12 13:34] LABS: MANUAL DIFF FLAG NO
[2025-02-12 13:35] LABS: Basophils Percent Auto 0.1 % (0-2); Eosinophils Absolute Auto 0.1 X10*3/uL (0.0-0.4); Eosinophils Percent Auto 0.3 % (0-4); Hematocrit 21.8 % (37.0-47.0); Hemoglobin 7.2 g/dl (12.0-16.0); Imm Gran Abs Auto 0.05 X10*3/uL (0.00-0.03); Imm Gran Pct Auto 0.3 % (0.0-0.4); Lymphocytes Absolute Auto 2.8 X10*3/uL (1.2-4.9); Mean Corpuscular Hemoglobin 28.1 pg (27.0-33.0); Mean Corpuscular Volume 85.2 fL (80.0-98.0); Mean Platelet Volume 9.7 fL (9.4-12.3); Monocytes Absolute Auto 1.4 X10*3/uL (0.1-1.2); Monocytes Percent Auto 9.2 % (2-11); Neutrophils Absolute Auto 10.5 x10*3/uL (2.0-8.3); Neutrophils Percent Auto 71.1 % (45-73); Platelet Count 234 X10*3/uL (160-400); Red Blood Count 2.56 X10*6/uL (4.20-5.50); Red Cell Distribution Width 14.5 % (11.0-16.0); White Blood Count 14.7 X10*3/uL (4.8-10.8)
--- NOTE | 2025-02-12 13:56 | PM.EVENT ---
Event Note Date of Service: 02/12/25 Event Note: Repeat H/H slightly drifted. Patient remains asymptomatic. HR slightly elevated, BP stable. Chest tube output has tapered off. Will hold off on any transfusion and repeat CBC in AM. Time Spent With Patient Time: Total time managing care of this patient today ____ minutes.
[2025-02-12] MEDS: Omeprazole 20 MG CAPSULE.DR PO (16:34)
[2025-02-12 16:45] LABS: Glucose, Whole Blood 139 mg/dL (60-115)
[2025-02-12 20:17] LABS: Glucose, Whole Blood 164 mg/dL (60-115)
[2025-02-12] MEDS: Milk of Magnesia 30 ML ORAL.SUSP PO (21:49)
[2025-02-12] MEDS: Montelukast Sodium 10 MG TABLET PO (21:50)
[2025-02-12] MEDS: ARIPiprazole 20 MG TABLET PO (21:50)
[2025-02-12] MEDS: HaloperidoL 5 MG TABLET 2.5 MG PO (21:50)
[2025-02-12] MEDS: Atorvastatin Calcium 40 MG TABLET PO (21:51)
[2025-02-13] VITALS (9 sets, daily range): BP systolic 94–128; BP diastolic 36–65; PULSE 92–108; RESP 16–18; TEMP 36.3–36.8; O2SAT 93–99
[2025-02-13] MEDS: Acetaminophen 1,000 MG/100 ML PIGGYBACK 400 MG IV ×5 (00:33→23:33)
[2025-02-13] MEDS: 0.9 % Sodium Chloride Flush 3 ML SYRINGE IVFLUSH ×2 (00:37→08:38)
[2025-02-13] MEDS: HYDROmorphone HCl 0.5 MG/0.5 ML SYRINGE IVPUSH ×4 (04:37→23:58)
[2025-02-13 07:40] LABS: Glucose, Whole Blood 156 mg/dL (60-115)
[2025-02-13 07:42] LABS: MANUAL DIFF FLAG NO
[2025-02-13 08:12] LABS: Basophils Absolute Auto 0.1 X10*3/uL (0.0-0.2); Basophils Percent Auto 0.4 % (0-2); Eosinophils Absolute Auto 0.3 X10*3/uL (0.0-0.4); Eosinophils Percent Auto 2.1 % (0-4); Imm Gran Abs Auto 0.08 X10*3/uL (0.00-0.03); Imm Gran Pct Auto 0.6 % (0.0-0.4); Lymphocytes Absolute Auto 3.3 X10*3/uL (1.2-4.9); Lymphocytes Percent Auto 24.4 % (20-40); Mean Corpuscular HGB Conc 34.7 g/dl (31.0-35.0); Mean Corpuscular Hemoglobin 29.4 pg (27.0-33.0); Mean Corpuscular Volume 84.9 fL (80.0-98.0); Monocytes Absolute Auto 1.2 X10*3/uL (0.1-1.2); Monocytes Percent Auto 9.1 % (2-11); Neutrophils Absolute Auto 8.5 x10*3/uL (2.0-8.3); Neutrophils Percent Auto 63.4 % (45-73); Platelet Count 232 X10*3/uL (160-400); Red Blood Count 2.38 X10*6/uL (4.20-5.50); Red Cell Distribution Width 14.2 % (11.0-16.0); White Blood Count 13.5 X10*3/uL (4.8-10.8)
[2025-02-13 08:24] LABS: Hematocrit 20.2 % (37.0-47.0)
[2025-02-13] MEDS: buPROPion HCl XL 150 MG TAB.ER.24H PO (08:38)
[2025-02-13] MEDS: Docusate Sodium 100 MG CAPSULE PO ×2 (08:38→21:56)
[2025-02-13] MEDS: Loratadine 10 MG TABLET PO (08:38)
[2025-02-13] MEDS: buPROPion HCl XL 300 MG TAB.ER.24H PO (08:38)
[2025-02-13] MEDS: Insulin Lispro 100 UNIT/ML 3 ML VIAL SUBCUT ×3 (08:38→21:55)
[2025-02-13] MEDS: metFORMIN HCl ER 500 MG TAB.ER.24H 1000 MG PO ×2 (08:38→21:55)
[2025-02-13] MEDS: glipiZIDE 10 MG TABLET PO ×2 (08:38→21:56)
[2025-02-13] MEDS: polyethylene glycoL 3350 17 GM POWD.PACK PO (08:39)
--- NOTE | 2025-02-13 08:50 | P.PNIM_ITS ---
Subjective Subjective Date of Service: 02/13/25 Interval History: Follow up for pt admitted to thoracic surgery services for left lower lobe lobectomy. POD2 H&H has been dropping post surgery 10.4 --> 8.6 --> 7.2 --> 7.0 Chest tube output tapering off yesterday, minimal output last night and this morning Pt asymptomatic: No lightheadedness/dizziness or SOB Complains of left sided chest pain radiating to back at chest tube insertion site and surgical sites No nausea or vomiting today, able to tolerate diet Review of Systems Negative except for that which is stated in the HPI Physical Exam 2 Vital Signs: Vital Signs: Last Vital Signs Temp 97.8 F 02/13/25 07:14 Pulse 95 02/13/25 07:14 Resp 18 02/13/25 07:14 BP 94/50 L 02/13/25 07:14 Pulse Ox 99 02/13/25 07:14 O2 Del Method Nasal Cannula 02/13/25 07:14 O2 Flow Rate 2 02/13/25 07:14 BMI result Body Mass Index 32.2 General: AOx3, no acute distress Resp: CTA bilaterally Chest: Chest tube in place with sanguinous output. Clean dressings in place. Appropriate tenderness to surgical sites. CVS: S1, S2, RRR GI: +BS, NT, no distention Skin: Warm, dry Neuro: Cranial nerves II-XII grossly intact bilaterally. Motor grossly intact bilaterally Extremities: No edema Psych: Appropriate affect Objective Data Active Medications Albuterol Sulfate (Albuterol Sulfate 90 Mcg 8 Gm Inhaler) 2 puff INHALE QID PRN PRN Reason: Wheezing Last Admin: 02/12/25 08:46 Dose: 2 puff Documented By: RENEE Aripiprazole (Aripiprazole 20 Mg Tablet) 20 mg PO BEDTIME [facility] Last Admin: 02/12/25 21:50 Dose: 20 mg Documented By: SHAYE Atorvastatin Calcium (Atorvastatin Calcium 40 Mg Tablet) 40 mg PO BEDTIME [facility] Last Admin: 02/12/25 21:51 Dose: 40 mg Documented By: SHAYE Bupropion HCl (Bupropion Hcl Xl 300 Mg Tab.Er.24h) 300 mg PO DAILY [facility] Last Admin: 02/13/25 08:38 Dose: 300 mg Documented By: AMELIE Bupropion HCl (Bupropion Hcl Xl 150 Mg Tab.Er.24h) 150 mg PO DAILY [facility] Last Admin: 02/13/25 08:38 Dose: 150 mg Documented By: AMELIE Calcium Carbonate (Calcium Carbonate 750 Mg Tab.Chew) 750 mg PO Q4H PRN PRN Reason: Heartburn Clonazepam (Clonazepam 1 Mg Tablet) 1 mg PO BID PRN PRN Reason: Anxiety Dextrose (Dextrose 50 % 25 Gm/50 Ml Syringe) 25 gm IVPUSH Q15M PRN; Protocol PRN Reason: per Hypoglycemia Standing Ord. Docusate Sodium (Docusate Sodium 100 Mg Capsule) 100 mg PO BID [facility] Last Admin: 02/13/25 08:38 Dose: 100 mg Documented By: AMELIE Ferrous Sulfate (Ferrous Sulfate 324 Mg Tablet.Dr) 324 mg PO DAILY@1200 [facility] Last Admin: 02/12/25 12:20 Dose: 324 mg Documented By: TJ Fluticasone Propionate (Fluticasone Propionate Nasal 16 Gm [place]) 2 spray NOSTRIL-B DAILY PRN PRN Reason: Allergy Symptoms Glipizide (Glipizide 10 Mg Tablet) 10 mg PO BID [facility] Last Admin: 02/13/25 08:38 Dose: 10 mg Documented By: AMELIE Glucose (Glucose Gel 15 Gm Gel..Gram.) 15 gm PO Q15M PRN; Protocol PRN Reason: per Hypoglycemia Standing Ord. Haloperidol (Haloperidol 5 Mg Tablet) 2.5 mg PO BEDTIME [facility] Last Admin: 02/12/25 21:50 Dose: 2.5 mg Documented By: SHAYE Hydromorphone HCl (Hydromorphone Hcl 0.5 Mg/0.5 Ml Syringe) 0.5 mg IVPUSH Q3H PRN; Protocol PRN Reason: Pain, Severe (Pain Scale 7-10) Last Admin: 02/13/25 08:40 Dose: 0.5 mg Documented By: AMELIE Hydroxyzine HCl (Hydroxyzine Hcl 50 Mg Tablet) 50 mg PO TID PRN PRN Reason: anxiety Acetaminophen (Ofirmev) 1,000 mg in 100 mls @ 400 mls/hr IV Q6H [facility] Last Infusion: 02/13/25 06:41 Dose: Infused Documented By: HO.BELANGB Insulin Human Lispro (Insulin Lispro 100 Unit/Ml 3 Ml Vial) 0 unit SUBCUT QIDACHS [facility]; Protocol Last Admin: 02/13/25 08:38 Dose: 2 unit Documented By: AMELIE Loratadine (Loratadine 10 Mg Tablet) 10 mg PO DAILY [facility] Last Admin: 02/13/25 08:38 Dose: 10 mg Documented By: AMELIE Magnesium Hydroxide (Milk Of Magnesia 30 Ml Oral.Susp) 30 ml PO DAILY PRN PRN Reason: Constipation Last Admin: 02/12/25 21:49 Dose: 30 ml Documented By: SHAYE Comments: pt requested for constipation Melatonin (Melatonin 3 Mg Tablet) 6 mg PO BEDTIME PRN PRN Reason: Insomnia Metformin HCl (Metformin Hcl Er 500 Mg Tab.Er.24h) 1,000 mg PO BID [facility] Last Admin: 02/13/25 08:38 Dose: 1,000 mg Documented By: AMELIE Montelukast Sodium (Montelukast Sodium 10 Mg Tablet) 10 mg PO BEDTIME [facility] Last Admin: 02/12/25 21:50 Dose: 10 mg Documented By: SHAYE Non-Formulary Medication (Levothyroxine [Tirosint-Michelle]) 400 mcg PO DAILY [facility] Omeprazole (Omeprazole 20 Mg Capsule.Dr) 20 mg PO DAILY@1630 [facility] Last Admin: 02/12/25 16:34 Dose: 20 mg Documented By: TJ Ondansetron HCl (Ondansetron Hcl 4 Mg/2 Ml Vial) 4 mg IVPUSH Q6H PRN PRN Reason: Nausea and Vomiting Last Admin: 02/12/25 08:53 Dose: 4 mg Documented By: TJ Polyethylene Glycol (Polyethylene Glycol 3350 17 Gm Powd.Pack) 17 gm PO DAILY [facility] Last Admin: 02/13/25 08:39 Dose: 17 gm Documented By: AMELIE Sodium Chloride (0.9 % Sodium Chloride Flush 3 Ml Syringe) 3 ml IVFLUSH QSHIFT [facility] Last Admin: 02/13/25 08:38 Dose: 3 ml Documented By: AMELIE Tramadol HCl (Tramadol Hcl 50 Mg Tablet) 100 mg PO Q4H PRN PRN Reason: Pain, Moderate(Pain Scale 4-6) Labs 02/13/25 07:08 02/12/25 05:55 Labs: Laboratory Results - last 24 hr 02/12/25 02/12/25 02/12/25 11:40 13:32 16:41 MCV 85.2 MCH 28.1 MCHC 33.0 RDW 14.5 Plt Count 234 MPV 9.7 Immature Gran % (Auto) 0.3 Neut % (Auto) 71.1 Lymph % (Auto) 19.0 L [place] % (Auto) 9.2 Eos % (Auto) 0.3 Baso % (Auto) 0.1 Lymph # (Auto) 2.8 [place] # (Auto) 1.4 H Eos # (Auto) 0.1 Baso # (Auto) 0.0 Abs Immat Gran (auto) 0.05 H Absolute Neuts (auto) 10.5 H Absolute Nucleated RBC 0.000 Nucleated RBC % (auto) 0.0 POC Glucose 198 H 139 H 02/12/25 02/13/25 02/13/25 20:13 07:08 07:33 MCV 84.9 MCH 29.4 MCHC 34.7 RDW 14.2 Plt Count 232 MPV 10.0 Immature Gran % (Auto) 0.6 H Neut % (Auto) 63.4 Lymph % (Auto) 24.4 [place] % (Auto) 9.1 Eos % (Auto) 2.1 Baso % (Auto) 0.4 Lymph # (Auto) 3.3 [place] # (Auto) 1.2 Eos # (Auto) 0.3 Baso # (Auto) 0.1 Abs Immat Gran (auto) 0.08 H Absolute Neuts (auto) 8.5 H Absolute Nucleated RBC 0.000 Nucleated RBC % (auto) 0.0 POC Glucose 164 H 156 H Assessment and Plan (1) Primary malignant neoplasm of left lower lobe of lung: Status: Acute Plan Pt is a 54-year-old female with a PMH significant for fjc-[id number] type 2 diabetes, HTN, HLD, thyroid cancer s/p thyroidectomy, COPD, GERD, DANIEL on 2L NC at night, and schizoaffective disorder, and bipolar disorder who was admitted to the hospital under thoracic surgery services for elective left lower lobe lobectomy. Pt underwent recent biopsy that was consistent with [id number]-dfhk lung cancer of left lower lobe. Hospitalist consult for medical management. POD2. Uni-qxfhe-hyjo lung cancer S/p left lower lobectomy Plan as per thoracic surgery Acute blood loss anemia H&H has been dropping post surgery 10.4 --> 8.6 --> 7.2 --> 7.0 Tachycardic with soft BP, though pt remains asymptomatic Will type and screen and transfuse 1 unit PRBCs Repeat H&H this afternoon Follow CBC HTN BP soft post-op, currently 94/50 Continue holding lisinopril Hold on fluids for now as pt being transfused 1 unit PRBC as above Follow BP closely Rrz-cdprtkk-fdbjubwgx type 2 diabetes Hold metformin, semaglutide Continue glipizide Will place on sliding scale insulin Diabetic diet COPD Not in acute exacerbation Continue home inhalers Hypothyroidism Continue levothyroxine GERD Continue PPI Mood disorder Continue home mood stabilizers Will continue to follow along with you Quality Stroke Does the patient have a stroke diagnosis?: No VTE Prior VTE?: No VTE Risk Level:: Surgical - low VTE Device Contraindication: N/A - Device Ordered VTE Drug Contraindication: Treatment Not Indicated
[2025-02-13 11:43] LABS: Glucose, Whole Blood 187 mg/dL (60-115)
[2025-02-13] MEDS: Ferrous Sulfate 324 MG TABLET.DR PO (12:40)
[2025-02-13 15:36] LABS: Glucose, Whole Blood 139 mg/dL (60-115)
--- NOTE | 2025-02-13 15:58 | P.PNGS_ITS ---
Subjective Subjective Date of Service: 02/13/25 Interval history: pt feeling tired, breathing ok, pain baseline Physical Exam 2 Vital Signs: Vital Signs: Last Vital Signs Temp 97.5 F 02/13/25 15:01 Pulse 104 H 02/13/25 15:01 Resp 16 02/13/25 15:01 BP 110/62 02/13/25 15:01 Pulse Ox 95 02/13/25 11:11 O2 Del Method Room Air 02/13/25 11:11 O2 Flow Rate 2 02/13/25 07:14 BMI result Body Mass Index 32.2 Const: General: cooperative, healthy appearing and comfortable Resp: Other: decreased sounds left side - chest tube has serosnaguinous flud\ pleurovac 759 cc yestrday no air leak chest dressings dry and clean Objective Data Active Medications Albuterol Sulfate (Albuterol Sulfate 90 Mcg 8 Gm Inhaler) 2 puff INHALE QID PRN PRN Reason: Wheezing Last Admin: 02/12/25 08:46 Dose: 2 puff Documented By: RENEE Aripiprazole (Aripiprazole 20 Mg Tablet) 20 mg PO BEDTIME [facility] Last Admin: 02/12/25 21:50 Dose: 20 mg Documented By: SHAYE Atorvastatin Calcium (Atorvastatin Calcium 40 Mg Tablet) 40 mg PO BEDTIME [facility] Last Admin: 02/12/25 21:51 Dose: 40 mg Documented By: SHAYE Bupropion HCl (Bupropion Hcl Xl 300 Mg Tab.Er.24h) 300 mg PO DAILY [facility] Last Admin: 02/13/25 08:38 Dose: 300 mg Documented By: AMELIE Bupropion HCl (Bupropion Hcl Xl 150 Mg Tab.Er.24h) 150 mg PO DAILY [facility] Last Admin: 02/13/25 08:38 Dose: 150 mg Documented By: AMELIE Calcium Carbonate (Calcium Carbonate 750 Mg Tab.Chew) 750 mg PO Q4H PRN PRN Reason: Heartburn Clonazepam (Clonazepam 1 Mg Tablet) 1 mg PO BID PRN PRN Reason: Anxiety Dextrose (Dextrose 50 % 25 Gm/50 Ml Syringe) 25 gm IVPUSH Q15M PRN; Protocol PRN Reason: per Hypoglycemia Standing Ord. Docusate Sodium (Docusate Sodium 100 Mg Capsule) 100 mg PO BID [facility] Last Admin: 02/13/25 08:38 Dose: 100 mg Documented By: AMELIE Ferrous Sulfate (Ferrous Sulfate 324 Mg Tablet.Dr) 324 mg PO DAILY@1200 [facility] Last Admin: 02/13/25 12:40 Dose: 324 mg Documented By: AMELIE Fluticasone Propionate (Fluticasone Propionate Nasal 16 Gm [place]) 2 spray NOSTRIL-B DAILY PRN PRN Reason: Allergy Symptoms Glipizide (Glipizide 10 Mg Tablet) 10 mg PO BID [facility] Last Admin: 02/13/25 08:38 Dose: 10 mg Documented By: AMELIE Glucose (Glucose Gel 15 Gm Gel..Gram.) 15 gm PO Q15M PRN; Protocol PRN Reason: per Hypoglycemia Standing Ord. Haloperidol (Haloperidol 5 Mg Tablet) 2.5 mg PO BEDTIME [facility] Last Admin: 02/12/25 21:50 Dose: 2.5 mg Documented By: SHAYE Hydromorphone HCl (Hydromorphone Hcl 0.5 Mg/0.5 Ml Syringe) 0.5 mg IVPUSH Q3H PRN; Protocol PRN Reason: Pain, Severe (Pain Scale 7-10) Last Admin: 02/13/25 08:40 Dose: 0.5 mg Documented By: AMELIE Hydroxyzine HCl (Hydroxyzine Hcl 50 Mg Tablet) 50 mg PO TID PRN PRN Reason: anxiety Acetaminophen (Ofirmev) 1,000 mg in 100 mls @ 400 mls/hr IV Q6H [facility] Last Infusion: 02/13/25 12:55 Dose: Infused Documented By: AMELIE Insulin Human Lispro (Insulin Lispro 100 Unit/Ml 3 Ml Vial) 0 unit SUBCUT QIDACHS [facility]; Protocol Last Admin: 02/13/25 15:54 Dose: Not Given Documented By: AMELIE Non-Admin Reason: No Insulin Coverage Loratadine (Loratadine 10 Mg Tablet) 10 mg PO DAILY [facility] Last Admin: 02/13/25 08:38 Dose: 10 mg Documented By: AMELIE Magnesium Hydroxide (Milk Of Magnesia 30 Ml Oral.Susp) 30 ml PO DAILY PRN PRN Reason: Constipation Last Admin: 02/12/25 21:49 Dose: 30 ml Documented By: SHAYE Comments: pt requested for constipation Melatonin (Melatonin 3 Mg Tablet) 6 mg PO BEDTIME PRN PRN Reason: Insomnia Metformin HCl (Metformin Hcl Er 500 Mg Tab.Er.24h) 1,000 mg PO BID [facility] Last Admin: 02/13/25 08:38 Dose: 1,000 mg Documented By: AMELIE Montelukast Sodium (Montelukast Sodium 10 Mg Tablet) 10 mg PO BEDTIME [facility] Last Admin: 02/12/25 21:50 Dose: 10 mg Documented By: SHAYE Non-Formulary Medication (Levothyroxine [Tirosint-Michelle]) 400 mcg PO DAILY [facility] Omeprazole (Omeprazole 20 Mg Capsule.Dr) 20 mg PO DAILY@1630 [facility] Last Admin: 02/12/25 16:34 Dose: 20 mg Documented By: TJ Ondansetron HCl (Ondansetron Hcl 4 Mg/2 Ml Vial) 4 mg IVPUSH Q6H PRN PRN Reason: Nausea and Vomiting Last Admin: 02/12/25 08:53 Dose: 4 mg Documented By: TJ Polyethylene Glycol (Polyethylene Glycol 3350 17 Gm Powd.Pack) 17 gm PO DAILY [facility] Last Admin: 02/13/25 08:39 Dose: 17 gm Documented By: AMELIE Sodium Chloride (0.9 % Sodium Chloride Flush 3 Ml Syringe) 3 ml IVFLUSH QSHIFT [facility] Last Admin: 02/13/25 14:57 Dose: Not Given Documented By: AMELIE Non-Admin Reason: IV Running Tramadol HCl (Tramadol Hcl 50 Mg Tablet) 100 mg PO Q4H PRN PRN Reason: Pain, Moderate(Pain Scale 4-6) Labs 02/13/25 07:08 02/12/25 05:55 Labs: Laboratory Results - last 24 hr 02/12/25 02/12/25 02/13/25 16:41 20:13 07:08 MCV 84.9 MCH 29.4 MCHC 34.7 RDW 14.2 Plt Count 232 MPV 10.0 Immature Gran % (Auto) 0.6 H Neut % (Auto) 63.4 Lymph % (Auto) 24.4 [place] % (Auto) 9.1 Eos % (Auto) 2.1 Baso % (Auto) 0.4 Lymph # (Auto) 3.3 [place] # (Auto) 1.2 Eos # (Auto) 0.3 Baso # (Auto) 0.1 Abs Immat Gran (auto) 0.08 H Absolute Neuts (auto) 8.5 H Absolute Nucleated RBC 0.000 Nucleated RBC % (auto) 0.0 POC Glucose 139 H 164 H Blood Type Antibody Screen Crossmatch 02/13/25 02/13/25 02/13/25 07:33 09:02 11:37 MCV MCH MCHC RDW Plt Count MPV Immature Gran % (Auto) Neut % (Auto) Lymph % (Auto) [place] % (Auto) Eos % (Auto) Baso % (Auto) Lymph # (Auto) [place] # (Auto) Eos # (Auto) Baso # (Auto) Abs Immat Gran (auto) Absolute Neuts (auto) Absolute Nucleated RBC Nucleated RBC % (auto) POC Glucose 156 H 187 H Blood Type O Negative Antibody Screen NEGATIVE Crossmatch See Detail 02/13/25 15:33 MCV MCH MCHC RDW Plt Count MPV Immature Gran % (Auto) Neut % (Auto) Lymph % (Auto) [place] % (Auto) Eos % (Auto) Baso % (Auto) Lymph # (Auto) [place] # (Auto) Eos # (Auto) Baso # (Auto) Abs Immat Gran (auto) Absolute Neuts (auto) Absolute Nucleated RBC Nucleated RBC % (auto) POC Glucose 139 H Blood Type Antibody Screen Crossmatch Procedures Date of Service Date of Service: 02/13/25 Progress Note: A&P Assessment and plan (1) Primary malignant neoplasm of left lower lobe of lung: Status: Acute Plan 54-year-old female postop day 2 that procedure for left lower lobe malignant lesion. Her H and H continue the drop and she is little more symptomatic and tachycardic at rest. Saturating well no air leak. Fluid coming out of the chest tube Pleur-evac is now more serosanguineous. Overall doing okay other then bleeding which at this point seems to have stabilized although H&H still trends down. Plan to give her 1 unit of blood and re-evaluate tomorrow. She understands and agrees with the above plan Time Spent With Patient Time: Total time managing care of this patient today ____ minutes. No Severe Sepsis: No Severe Sepsis Quality Stroke Does the patient have a stroke diagnosis?: No VTE Prior VTE?: No VTE Risk Level:: Surgical - low VTE Device Contraindication: N/A - Device Ordered VTE Drug Contraindication: Treatment Not Indicated
[2025-02-13] MEDS: Omeprazole 20 MG CAPSULE.DR PO (17:32)
[2025-02-13 19:11] LABS: Hematocrit 24.1 % (37.0-47.0); Hemoglobin 8.3 g/dl (12.0-16.0)
[2025-02-13 21:15] LABS: Glucose, Whole Blood 157 mg/dL (60-115)
[2025-02-13] MEDS: Melatonin 3 MG TABLET 6 MG PO (21:56)
[2025-02-13] MEDS: ARIPiprazole 20 MG TABLET PO (21:56)
[2025-02-13] MEDS: HaloperidoL 5 MG TABLET 2.5 MG PO (21:57)
[2025-02-13] MEDS: Atorvastatin Calcium 40 MG TABLET PO (21:57)
[2025-02-13] MEDS: Montelukast Sodium 10 MG TABLET PO (21:57)
[2025-02-14] MEDS: 0.9 % Sodium Chloride Flush 3 ML SYRINGE IVFLUSH ×4 (00:10→20:43)
[2025-02-14 03:29] VITALS: BP 119/56; PULSE 82; RESP 16; TEMP 36.1; O2SAT 95
[2025-02-14 03:35] VITALS: RESP 16
[2025-02-14] MEDS: HYDROmorphone HCl 0.5 MG/0.5 ML SYRINGE IVPUSH ×3 (03:35→15:24)
[2025-02-14] MEDS: traMADoL HCL 50 MG TABLET 100 MG PO (05:45)
[2025-02-14] MEDS: Acetaminophen 1,000 MG/100 ML PIGGYBACK 400 MG IV ×4 (05:46→23:47)
[2025-02-14 07:34] VITALS: BP 110/58; PULSE 82; RESP 18; TEMP 36.2; O2SAT 96
[2025-02-14 07:46] LABS: Glucose, Whole Blood 118 mg/dL (60-115)
[2025-02-14] MEDS: polyethylene glycoL 3350 17 GM POWD.PACK PO (09:43)
[2025-02-14] MEDS: buPROPion HCl XL 150 MG TAB.ER.24H PO (09:44)
[2025-02-14] MEDS: Docusate Sodium 100 MG CAPSULE PO ×2 (09:44→20:41)
[2025-02-14] MEDS: glipiZIDE 10 MG TABLET PO ×2 (09:44→20:41)
[2025-02-14] MEDS: metFORMIN HCl ER 500 MG TAB.ER.24H 1000 MG PO ×2 (09:44→20:41)
[2025-02-14] MEDS: buPROPion HCl XL 300 MG TAB.ER.24H PO (09:44)
[2025-02-14] MEDS: Loratadine 10 MG TABLET PO (09:44)
--- NOTE | 2025-02-14 09:45 | P.PNIM_ITS ---
Subjective Subjective Date of Service: 02/14/25 Interval History: f/u on med consult, s/p lobectomy for lung ca post op anemia, transfused yesterday, h/hbetter overall states she feels better Physical Exam 2 Vital Signs: Vital Signs: Last Vital Signs Temp 97.2 F 02/14/25 07:34 Pulse 82 02/14/25 07:34 Resp 18 02/14/25 07:34 BP 110/58 L 02/14/25 07:34 Pulse Ox 96 02/14/25 07:34 O2 Del Method Room Air 02/14/25 07:34 O2 Flow Rate 3 02/13/25 23:22 BMI result Body Mass Index 32.2 Const: Other: General: AOx3, no acute distress Resp: CTA bilaterally Chest: Chest tube in place with sanguinous output. Clean dressings in place. Appropriate tenderness to surgical sites. CVS: S1, S2, RRR GI: +BS, NT, no distention Skin: Warm, dry Neuro: Cranial nerves II-XII grossly intact bilaterally. Motor grossly intact bilaterally Extremities: No edema Psych: Appropriate affect Objective Data Active Medications Albuterol Sulfate (Albuterol Sulfate 90 Mcg 8 Gm Inhaler) 2 puff INHALE QID PRN PRN Reason: Wheezing Last Admin: 02/12/25 08:46 Dose: 2 puff Documented By: RENEE Aripiprazole (Aripiprazole 20 Mg Tablet) 20 mg PO BEDTIME [facility] Last Admin: 02/13/25 21:56 Dose: 20 mg Documented By: GOLDEN Atorvastatin Calcium (Atorvastatin Calcium 40 Mg Tablet) 40 mg PO BEDTIME [facility] Last Admin: 02/13/25 21:57 Dose: 40 mg Documented By: GOLDEN Bupropion HCl (Bupropion Hcl Xl 300 Mg Tab.Er.24h) 300 mg PO DAILY [facility] Last Admin: 02/14/25 09:44 Dose: 300 mg Documented By: AMELIE Bupropion HCl (Bupropion Hcl Xl 150 Mg Tab.Er.24h) 150 mg PO DAILY [facility] Last Admin: 02/14/25 09:44 Dose: 150 mg Documented By: AMELIE Calcium Carbonate (Calcium Carbonate 750 Mg Tab.Chew) 750 mg PO Q4H PRN PRN Reason: Heartburn Clonazepam (Clonazepam 1 Mg Tablet) 1 mg PO BID PRN PRN Reason: Anxiety Dextrose (Dextrose 50 % 25 Gm/50 Ml Syringe) 25 gm IVPUSH Q15M PRN; Protocol PRN Reason: per Hypoglycemia Standing Ord. Docusate Sodium (Docusate Sodium 100 Mg Capsule) 100 mg PO BID [facility] Last Admin: 02/14/25 09:44 Dose: 100 mg Documented By: AMELIE Ferrous Sulfate (Ferrous Sulfate 324 Mg Tablet.Dr) 324 mg PO DAILY@1200 [facility] Last Admin: 02/13/25 12:40 Dose: 324 mg Documented By: AMELIE Fluticasone Propionate (Fluticasone Propionate Nasal 16 Gm [place]) 2 spray NOSTRIL-B DAILY PRN PRN Reason: Allergy Symptoms Glipizide (Glipizide 10 Mg Tablet) 10 mg PO BID [facility] Last Admin: 02/14/25 09:44 Dose: 10 mg Documented By: AMELIE Glucose (Glucose Gel 15 Gm Gel..Gram.) 15 gm PO Q15M PRN; Protocol PRN Reason: per Hypoglycemia Standing Ord. Haloperidol (Haloperidol 5 Mg Tablet) 2.5 mg PO BEDTIME [facility] Last Admin: 02/13/25 21:57 Dose: 2.5 mg Documented By: GOLDEN Hydromorphone HCl (Hydromorphone Hcl 0.5 Mg/0.5 Ml Syringe) 0.5 mg IVPUSH Q3H PRN; Protocol PRN Reason: Pain, Severe (Pain Scale 7-10) Last Admin: 02/14/25 03:35 Dose: 0.5 mg Documented By: GOLDEN Hydroxyzine HCl (Hydroxyzine Hcl 50 Mg Tablet) 50 mg PO TID PRN PRN Reason: anxiety Acetaminophen (Ofirmev) 1,000 mg in 100 mls @ 400 mls/hr IV Q6H [facility] Last Admin: 02/14/25 09:44 Dose: 400 mls/hr Documented By: AMELIE Insulin Human Lispro (Insulin Lispro 100 Unit/Ml 3 Ml Vial) 0 unit SUBCUT QIDACHS [facility]; Protocol Last Admin: 02/14/25 07:54 Dose: Not Given Documented By: AMELIE Non-Admin Reason: No Insulin Coverage Loratadine (Loratadine 10 Mg Tablet) 10 mg PO DAILY [facility] Last Admin: 02/14/25 09:44 Dose: 10 mg Documented By: AMELIE Magnesium Hydroxide (Milk Of Magnesia 30 Ml Oral.Susp) 30 ml PO DAILY PRN PRN Reason: Constipation Last Admin: 02/12/25 21:49 Dose: 30 ml Documented By: SHAYE Comments: pt requested for constipation Melatonin (Melatonin 3 Mg Tablet) 6 mg PO BEDTIME PRN PRN Reason: Insomnia Last Admin: 02/13/25 21:56 Dose: 6 mg Documented By: GOLDEN Metformin HCl (Metformin Hcl Er 500 Mg Tab.Er.24h) 1,000 mg PO BID [facility] Last Admin: 02/14/25 09:44 Dose: 1,000 mg Documented By: AMELIE Montelukast Sodium (Montelukast Sodium 10 Mg Tablet) 10 mg PO BEDTIME [facility] Last Admin: 02/13/25 21:57 Dose: 10 mg Documented By: GOLDEN Non-Formulary Medication (Levothyroxine [Tirosint-Michelle]) 400 mcg PO DAILY [facility] Omeprazole (Omeprazole 20 Mg Capsule.Dr) 20 mg PO DAILY@1630 [facility] Last Admin: 02/13/25 17:32 Dose: 20 mg Documented By: AMELIE Ondansetron HCl (Ondansetron Hcl 4 Mg/2 Ml Vial) 4 mg IVPUSH Q6H PRN PRN Reason: Nausea and Vomiting Last Admin: 02/12/25 08:53 Dose: 4 mg Documented By: TJ Polyethylene Glycol (Polyethylene Glycol 3350 17 Gm Powd.Pack) 17 gm PO DAILY [facility] Last Admin: 02/14/25 09:43 Dose: 17 gm Documented By: AMELIE Sodium Chloride (0.9 % Sodium Chloride Flush 3 Ml Syringe) 3 ml IVFLUSH QSHIFT [facility] Last Admin: 02/14/25 09:43 Dose: 3 ml Documented By: AMELIE Tramadol HCl (Tramadol Hcl 50 Mg Tablet) 100 mg PO Q4H PRN PRN Reason: Pain, Moderate(Pain Scale 4-6) Last Admin: 02/14/25 05:45 Dose: 100 mg Documented By: GOLDEN Labs 02/13/25 18:59 02/12/25 05:55 Labs: Laboratory Results - last 24 hr 02/13/25 02/13/25 02/13/25 09:02 11:37 15:33 POC Glucose 187 H 139 H Blood Type O Negative Antibody Screen NEGATIVE Crossmatch See Detail 02/13/25 02/14/25 21:04 07:38 POC Glucose 157 H 118 H Blood Type Antibody Screen Crossmatch Assessment and Plan (1) Type 2 diabetes mellitus: Status: Acute (2) Acute blood loss anemia: Status: Acute Plan Pt is a 54-year-old female with a PMH significant for [id number]-frmzuzqdl type 2 diabetes, HTN, HLD, thyroid cancer s/p thyroidectomy, COPD, GERD, DANIEL on 2L NC at night, and schizoaffective disorder, and bipolar disorder who was admitted to the hospital under thoracic surgery services for elective left lower lobe lobectomy. Pt underwent recent biopsy that was consistent with [id number] lung cancer of left lower lobe. Hospitalist consult for medical management. POD2. [id number]-lxsu lung cancer S/p left lower lobectomy Plan as per thoracic surgery Acute blood loss anemia H&H has been dropping post surgery 10.4 --> 8.6 --> 7.2 --> 7.0 Tachycardic with soft BP, though pt remains asymptomatic transfused 1 unit PRBCs on 02/13 and improved, recheck H/H this morning HTN BP soft post-op, currently 110/58 Continue holding lisinopril Follow BP closely Olq-bhuthrn-zsktenugy type 2 diabetes Hold metformin, semaglutide Continue glipizide continue sliding scale insulin Diabetic diet COPD Not in acute exacerbation Continue home inhalers Hypothyroidism Continue levothyroxine GERD Continue PPI Mood disorder Continue home mood stabilizers Will continue to follow along with you Quality Stroke Does the patient have a stroke diagnosis?: No VTE Prior VTE?: No VTE Risk Level:: Surgical - low VTE Device Contraindication: N/A - Device Ordered VTE Drug Contraindication: Treatment Not Indicated
[2025-02-14 11:13] VITALS: BP 123/74; PULSE 89; RESP 18; TEMP 36.5; O2SAT 95
[2025-02-14 11:29] LABS: Glucose, Whole Blood 155 mg/dL (60-115)
[2025-02-14 11:56] LABS: Anion Gap 11 (12-20); Blood Urea Nitrogen 8 mg/dL (9-16); Calcium 8.4 mg/dL (8.4-10.2); Carbon Dioxide 30 mmol/L (22-29); Chloride 101 mmol/L (96-108); Creatinine Clr Calc Pharmacy 98.7; Estimated Glomerular Filt Rate > 60; Glucose Random 174 mg/dL (60-115); Sodium 138 mmol/L (135-145)
[2025-02-14 11:58] LABS: Hematocrit 24.1 % (37.0-47.0); Hemoglobin 8.2 g/dl (12.0-16.0); Mean Corpuscular Volume 85.2 fL (80.0-98.0); Mean Platelet Volume 9.8 fL (9.4-12.3); NRBC Pct Auto 0.2 /100WBC (0.0-0.2); Platelet Count 243 X10*3/uL (160-400); Red Blood Count 2.83 X10*6/uL (4.20-5.50); Red Cell Distribution Width 14.1 % (11.0-16.0); White Blood Count 12.8 X10*3/uL (4.8-10.8)
[2025-02-14] MEDS: Ferrous Sulfate 324 MG TABLET.DR PO (12:38)
[2025-02-14] MEDS: Insulin Lispro 100 UNIT/ML 3 ML VIAL SUBCUT ×2 (12:38→20:41)
--- NOTE | 2025-02-14 15:28 | PM.PNGS ---
Subjective Subjective Date of Service: 02/14/25 Interval history: -38 cc fluid from chest tube overnight pt feels well, more energy no shortness of breath, ready to go home soon, pain well controlled Physical Exam Vital Signs: Vital Signs: Last Vital Signs Temp 97.7 F 02/14/25 11:13 Pulse 89 02/14/25 11:13 Resp 18 02/14/25 11:13 BP 123/74 02/14/25 11:13 Pulse Ox 95 02/14/25 11:13 O2 Del Method Room Air 02/14/25 11:13 O2 Flow Rate 3 02/13/25 23:22 BMI result Body Mass Index 32.2 Const: General: cooperative, healthy appearing, comfortable and no acute distress Resp: Other: good air entry bilaterally - coarse sounds left base area Objective Data Active Medications Albuterol Sulfate (Albuterol Sulfate 90 Mcg 8 Gm Inhaler) 2 puff INHALE QID PRN PRN Reason: Wheezing Last Admin: 02/12/25 08:46 Dose: 2 puff Documented By: RENEE Aripiprazole (Aripiprazole 20 Mg Tablet) 20 mg PO BEDTIME [facility] Last Admin: 02/13/25 21:56 Dose: 20 mg Documented By: GOLDEN Atorvastatin Calcium (Atorvastatin Calcium 40 Mg Tablet) 40 mg PO BEDTIME [facility] Last Admin: 02/13/25 21:57 Dose: 40 mg Documented By: GOLDEN Bupropion HCl (Bupropion Hcl Xl 300 Mg Tab.Er.24h) 300 mg PO DAILY [facility] Last Admin: 02/14/25 09:44 Dose: 300 mg Documented By: AMELIE Bupropion HCl (Bupropion Hcl Xl 150 Mg Tab.Er.24h) 150 mg PO DAILY [facility] Last Admin: 02/14/25 09:44 Dose: 150 mg Documented By: AMELIE Calcium Carbonate (Calcium Carbonate 750 Mg Tab.Chew) 750 mg PO Q4H PRN PRN Reason: Heartburn Clonazepam (Clonazepam 1 Mg Tablet) 1 mg PO BID PRN PRN Reason: Anxiety Dextrose (Dextrose 50 % 25 Gm/50 Ml Syringe) 25 gm IVPUSH Q15M PRN; Protocol PRN Reason: per Hypoglycemia Standing Ord. Docusate Sodium (Docusate Sodium 100 Mg Capsule) 100 mg PO BID [facility] Last Admin: 02/14/25 09:44 Dose: 100 mg Documented By: AMELIE Ferrous Sulfate (Ferrous Sulfate 324 Mg Tablet.Dr) 324 mg PO DAILY@1200 [facility] Last Admin: 02/14/25 12:38 Dose: 324 mg Documented By: AMELIE Fluticasone Propionate (Fluticasone Propionate Nasal 16 Gm [place]) 2 spray NOSTRIL-B DAILY PRN PRN Reason: Allergy Symptoms Glipizide (Glipizide 10 Mg Tablet) 10 mg PO BID [facility] Last Admin: 02/14/25 09:44 Dose: 10 mg Documented By: AMELIE Glucose (Glucose Gel 15 Gm Gel..Gram.) 15 gm PO Q15M PRN; Protocol PRN Reason: per Hypoglycemia Standing Ord. Haloperidol (Haloperidol 5 Mg Tablet) 2.5 mg PO BEDTIME [facility] Last Admin: 02/13/25 21:57 Dose: 2.5 mg Documented By: GOLDEN Hydromorphone HCl (Hydromorphone Hcl 0.5 Mg/0.5 Ml Syringe) 0.5 mg IVPUSH Q3H PRN; Protocol PRN Reason: Pain, Severe (Pain Scale 7-10) Last Admin: 02/14/25 15:24 Dose: 0.5 mg Documented By: AMELIE Hydroxyzine HCl (Hydroxyzine Hcl 50 Mg Tablet) 50 mg PO TID PRN PRN Reason: anxiety Acetaminophen (Ofirmev) 1,000 mg in 100 mls @ 400 mls/hr IV Q6H [facility] Last Infusion: 02/14/25 10:05 Dose: Infused Documented By: AMELIE Insulin Human Lispro (Insulin Lispro 100 Unit/Ml 3 Ml Vial) 0 unit SUBCUT QIDACHS [facility]; Protocol Last Admin: 02/14/25 12:38 Dose: 2 unit Documented By: AMELIE Loratadine (Loratadine 10 Mg Tablet) 10 mg PO DAILY [facility] Last Admin: 02/14/25 09:44 Dose: 10 mg Documented By: AMELIE Magnesium Hydroxide (Milk Of Magnesia 30 Ml Oral.Susp) 30 ml PO DAILY PRN PRN Reason: Constipation Last Admin: 02/12/25 21:49 Dose: 30 ml Documented By: SHAYE Comments: pt requested for constipation Melatonin (Melatonin 3 Mg Tablet) 6 mg PO BEDTIME PRN PRN Reason: Insomnia Last Admin: 02/13/25 21:56 Dose: 6 mg Documented By: GOLDEN Metformin HCl (Metformin Hcl Er 500 Mg Tab.Er.24h) 1,000 mg PO BID [facility] Last Admin: 02/14/25 09:44 Dose: 1,000 mg Documented By: AMELIE Montelukast Sodium (Montelukast Sodium 10 Mg Tablet) 10 mg PO BEDTIME [facility] Last Admin: 02/13/25 21:57 Dose: 10 mg Documented By: GOLDEN Non-Formulary Medication (Levothyroxine [Tirosint-Michelle]) 400 mcg PO DAILY [facility] Omeprazole (Omeprazole 20 Mg Capsule.Dr) 20 mg PO DAILY@1630 [facility] Last Admin: 02/13/25 17:32 Dose: 20 mg Documented By: AMELIE Ondansetron HCl (Ondansetron Hcl 4 Mg/2 Ml Vial) 4 mg IVPUSH Q6H PRN PRN Reason: Nausea and Vomiting Last Admin: 02/12/25 08:53 Dose: 4 mg Documented By: TJ Polyethylene Glycol (Polyethylene Glycol 3350 17 Gm Powd.Pack) 17 gm PO DAILY [facility] Last Admin: 02/14/25 09:43 Dose: 17 gm Documented By: AMELIE Sodium Chloride (0.9 % Sodium Chloride Flush 3 Ml Syringe) [facility] Last Admin: 02/14/25 09:43 Dose: 3 ml Documented By: AMELIE Tramadol HCl (Tramadol Hcl 50 Mg Tablet) 100 mg PO Q4H PRN PRN Reason: Pain, Moderate(Pain Scale 4-6) Last Admin: 02/14/25 05:45 Dose: 100 mg Documented By: GOLDEN Labs 02/14/25 11:09 02/14/25 11:09 Labs: Laboratory Results - last 24 hr 02/13/25 02/13/25 02/13/25 09:02 15:33 21:04 MCV MCH MCHC RDW Plt Count MPV Absolute Nucleated RBC Nucleated RBC % (auto) Anion Gap Estim Creat Clear Calc Estimated GFR POC Glucose 139 H 157 H Random Glucose Calcium Crossmatch See Detail 02/14/25 02/14/25 02/14/25 07:38 11:09 11:18 MCV 85.2 MCH 29.0 MCHC 34.0 RDW 14.1 Plt Count 243 MPV 9.8 Absolute Nucleated RBC 0.020 H Nucleated RBC % (auto) 0.2 Anion Gap 11 L Estim Creat Clear Calc 98.7 Estimated GFR > 60 POC Glucose 118 H 155 H Random Glucose 174 H Calcium 8.4 Crossmatch Procedures Date of Service Date of Service: 02/14/25 Progress Note: A&P Assessment and plan (1) S/P partial lobectomy of lung: Status: Acute Plan pt s/p left lower lobectomy with postop blood loss anemia responding well to one unit prbc. chest tube with no air leak and pt saturating well on room air. less serosnag fluid drainage - chest tube placed on water seal and no air leak and chest xray stable -? minimal stable ptx plan to most likely remove chest tube tomorrow and proceed with discharge Time Spent With Patient Time: Total time managing care of this patient today ____ minutes. Quality Stroke Does the patient have a stroke diagnosis?: No VTE Prior VTE?: No VTE Risk Level:: Surgical - low VTE Device Contraindication: N/A - Device Ordered VTE Drug Contraindication: Treatment Not Indicated
[2025-02-14 15:49] VITALS: BP 128/59; PULSE 81; RESP 18; TEMP 36.9; O2SAT 93
[2025-02-14 16:04] LABS: Glucose, Whole Blood 108 mg/dL (60-115)
[2025-02-14] MEDS: Omeprazole 20 MG CAPSULE.DR PO (16:09)
[2025-02-14 19:50] VITALS: BP 140/70; PULSE 93; RESP 16; TEMP 36.4; O2SAT 94
[2025-02-14 20:21] LABS: Glucose, Whole Blood 234 mg/dL (60-115)
[2025-02-14] MEDS: ARIPiprazole 20 MG TABLET PO (20:41)
[2025-02-14] MEDS: Atorvastatin Calcium 40 MG TABLET PO (20:41)
[2025-02-14] MEDS: HaloperidoL 5 MG TABLET 2.5 MG PO (20:41)
[2025-02-14] MEDS: Montelukast Sodium 10 MG TABLET PO (20:41)
[2025-02-14] MEDS: Melatonin 3 MG TABLET 6 MG PO (20:42)
[2025-02-15] VITALS: BP 115/58; PULSE 92; RESP 16; TEMP 36.6; O2SAT 98
[2025-02-15] MEDS: HYDROmorphone HCl 0.5 MG/0.5 ML SYRINGE IVPUSH (00:32)
[2025-02-15 04:00] VITALS: BP 115/68; PULSE 88; RESP 16; TEMP 36.8; O2SAT 93
[2025-02-15] MEDS: Acetaminophen 1,000 MG/100 ML PIGGYBACK 400 MG IV ×2 (05:48→13:15)
[2025-02-15] MEDS: clonazePAM 1 MG TABLET PO (05:49)
--- NOTE | 2025-02-15 07:06 | P.PNGS_ITS ---
Subjective Subjective Date of Service: 02/15/25 <Mini Pattersono - Last Filed: 02/15/25 07:20> 02/15/25 <Rose Michelle PA-C - Last Filed: 02/15/25 09:36> 02/15/25 <Mario Hoyt MD - Last Filed: 02/15/25 09:42> Interval history: Patient states she is feeling stronger today after recieving the pRBC, still reports some coughing with chest pain associated. <Mini Pattersono - Last Filed: 02/15/25 07:20> Patient states she is feeling stronger today after recieving the pRBC over the weekend, still reports some coughing with chest pain associated. Was OOB and ambulating halls over the weekend. Tolerating solid diet. Moving bowels. < Rose Michelle PA-C - Last Filed: 02/15/25 09:36> Physical Exam 2 Vital Signs: Vital Signs: Last Vital Signs Temp 98.3 F 02/15/25 04:00 Pulse 88 02/15/25 04:00 Resp 16 02/15/25 04:00 BP 115/68 02/15/25 04:00 Pulse Ox 93 02/15/25 04:00 O2 Del Method Room Air 02/15/25 04:00 O2 Flow Rate 3 02/13/25 23:22 BMI result Body Mass Index 32.2 <Mini Leecomo - Last Filed: 02/15/25 07:20> Const: General: alert and awake <Mini Pattersono - Last Filed: 02/15/25 07:20> Orientation/consciousness: patient oriented x3 <Mini Angelica - Last Filed: 02/15/25 07:20> Resp: Other: Dressing on incisions in tact Chest tube draining sangenous fluid, some blood noted on this dressing <Mini Pattersono - Last Filed: 02/15/25 07:20> Other: incisions clean, mild ecchymosis surrounding Chest tube draining serosanguineous fluid, some blood noted on this dressing, no air leak <RAJEEV Gallegos Last Filed: 02/15/25 09:36> Effort & Inspection: able to speak in complete sentences <Mini Dominguez - Last Filed: 02/15/25 07:20> Effort & Inspection: not labored, not tachypneic and no use of accessory muscles <Rose Michelle PA-C - Last Filed: 02/15/25 09:36> Cardio: Rate: regular rate <Mini Dominguez Last Filed: 02/15/25 07:20> Rhythm: regular rhythm <Mini Dominguez - Last Filed: 02/15/25 07:20> Peripheral pulses: radial pulses present <Mini Dominguez - Last Filed: 02/15/25 07:20> Skin: General skin exam: no rashes or lesions noted <Rose Michelle PA-C - Last Filed: 02/15/25 09:36> Neuro: General: patient oriented x3 <Mini Dominguez Last Filed: 02/15/25 07:20> Objective Data Active Medications Albuterol Sulfate (Albuterol Sulfate 90 Mcg 8 Gm Inhaler) 2 puff INHALE QID PRN PRN Reason: Wheezing Last Admin: 02/12/25 08:46 Dose: 2 puff Documented By: RENEE Aripiprazole (Aripiprazole 20 Mg Tablet) 20 mg PO BEDTIME [facility] Last Admin: 02/14/25 20:41 Dose: 20 mg Documented By: GAGE Atorvastatin Calcium (Atorvastatin Calcium 40 Mg Tablet) 40 mg PO BEDTIME [facility] Last Admin: 02/14/25 20:41 Dose: 40 mg Documented By: GAGE Bupropion HCl (Bupropion Hcl Xl 300 Mg Tab.Er.24h) 300 mg PO DAILY [facility] Last Admin: 02/14/25 09:44 Dose: 300 mg Documented By: AMELIE Bupropion HCl (Bupropion Hcl Xl 150 Mg Tab.Er.24h) 150 mg PO DAILY [facility] Last Admin: 02/14/25 09:44 Dose: 150 mg Documented By: AMELIE Calcium Carbonate (Calcium Carbonate 750 Mg Tab.Chew) 750 mg PO Q4H PRN PRN Reason: Heartburn Clonazepam (Clonazepam 1 Mg Tablet) 1 mg PO BID PRN PRN Reason: Anxiety Last Admin: 02/15/25 05:49 Dose: 1 mg Documented By: GAGE Dextrose (Dextrose 50 % 25 Gm/50 Ml Syringe) 25 gm IVPUSH Q15M PRN; Protocol PRN Reason: per Hypoglycemia Standing Ord. Docusate Sodium (Docusate Sodium 100 Mg Capsule) 100 mg PO BID [facility] Last Admin: 02/14/25 20:41 Dose: 100 mg Documented By: GAGE Ferrous Sulfate (Ferrous Sulfate 324 Mg Tablet.Dr) 324 mg PO DAILY@1200 [facility] Last Admin: 02/14/25 12:38 Dose: 324 mg Documented By: AMELIE Fluticasone Propionate (Fluticasone Propionate Nasal 16 Gm [place]) 2 spray NOSTRIL-B DAILY PRN PRN Reason: Allergy Symptoms Glipizide (Glipizide 10 Mg Tablet) 10 mg PO BID [facility] Last Admin: 02/14/25 20:41 Dose: 10 mg Documented By: GAGE Glucose (Glucose Gel 15 Gm Gel..Gram.) 15 gm PO Q15M PRN; Protocol PRN Reason: per Hypoglycemia Standing Ord. Haloperidol (Haloperidol 5 Mg Tablet) 2.5 mg PO BEDTIME [facility] Last Admin: 02/14/25 20:41 Dose: 2.5 mg Documented By: GAGE Hydromorphone HCl (Hydromorphone Hcl 0.5 Mg/0.5 Ml Syringe) 0.5 mg IVPUSH Q3H PRN; Protocol PRN Reason: Pain, Severe (Pain Scale 7-10) Last Admin: 02/15/25 00:32 Dose: 0.5 mg Documented By: GAGE Hydroxyzine HCl (Hydroxyzine Hcl 50 Mg Tablet) 50 mg PO TID PRN PRN Reason: anxiety Acetaminophen (Ofirmev) 1,000 mg in 100 mls @ 400 mls/hr IV Q6H [facility] Last Infusion: 02/15/25 06:20 Dose: Infused Documented By: GAGE Insulin Human Lispro (Insulin Lispro 100 Unit/Ml 3 Ml Vial) 0 unit SUBCUT QIDACHS [facility]; Protocol Last Admin: 02/14/25 20:41 Dose: 4 unit Documented By: GAGE Loratadine (Loratadine 10 Mg Tablet) 10 mg PO DAILY [facility] Last Admin: 02/14/25 09:44 Dose: 10 mg Documented By: AMELIE Magnesium Hydroxide (Milk Of Magnesia 30 Ml Oral.Susp) 30 ml PO DAILY PRN PRN Reason: Constipation Last Admin: 02/12/25 21:49 Dose: 30 ml Documented By: SHAYE Comments: pt requested for constipation Melatonin (Melatonin 3 Mg Tablet) 6 mg PO BEDTIME PRN PRN Reason: Insomnia Last Admin: 02/14/25 20:42 Dose: 6 mg Documented By: GAGE Metformin HCl (Metformin Hcl Er 500 Mg Tab.Er.24h) 1,000 mg PO BID [facility] Last Admin: 02/14/25 20:41 Dose: 1,000 mg Documented By: GAGE Montelukast Sodium (Montelukast Sodium 10 Mg Tablet) 10 mg PO BEDTIME [facility] Last Admin: 02/14/25 20:41 Dose: 10 mg Documented By: GAGE Non-Formulary Medication (Levothyroxine [Tirosint-Michelle]) 400 mcg PO DAILY [facility] Omeprazole (Omeprazole 20 Mg Capsule.Dr) 20 mg PO DAILY@1630 [facility] Last Admin: 02/14/25 16:09 Dose: 20 mg Documented By: AMELIE Ondansetron HCl (Ondansetron Hcl 4 Mg/2 Ml Vial) 4 mg IVPUSH Q6H PRN PRN Reason: Nausea and Vomiting Last Admin: 02/12/25 08:53 Dose: 4 mg Documented By: TJ Polyethylene Glycol (Polyethylene Glycol 3350 17 Gm Powd.Pack) 17 gm PO DAILY [facility] Last Admin: 02/14/25 09:43 Dose: 17 gm Documented By: AMELIE Sodium Chloride (0.9 % Sodium Chloride Flush 3 Ml Syringe) 3 ml IVFLUSH QSHIFT [facility] Last Admin: 02/14/25 20:43 Dose: 3 ml Documented By: GAGE Tramadol HCl (Tramadol Hcl 50 Mg Tablet) 100 mg PO Q4H PRN PRN Reason: Pain, Moderate(Pain Scale 4-6) Last Admin: 02/14/25 05:45 Dose: 100 mg Documented By: GOLDEN <Mini Angelica - Last Filed: 02/15/25 07:20> Labs CBC & Chem 7: 02/15/25 07:08 02/15/25 07:08 <Mini Angelica - Last Filed: 02/15/25 07:20> Labs: Laboratory Results - last 24 hr 02/14/25 02/14/25 02/14/25 07:38 11:09 11:18 MCV 85.2 MCH 29.0 MCHC 34.0 RDW 14.1 Plt Count 243 MPV 9.8 Absolute Nucleated RBC 0.020 H Nucleated RBC % (auto) 0.2 Anion Gap 11 L Estim Creat Clear Calc 98.7 Estimated GFR > 60 POC Glucose 118 H 155 H Random Glucose 174 H Calcium 8.4 02/14/25 02/14/25 16:00 20:16 MCV MCH MCHC RDW Plt Count MPV Absolute Nucleated RBC Nucleated RBC % (auto) Anion Gap Estim Creat Clear Calc Estimated GFR POC Glucose 108 234 H Random Glucose Calcium <Mini Angelica - Last Filed: 02/15/25 07:20> Procedures Date of Service Date of Service: 02/15/25 <Mini Angelica - Last Filed: 02/15/25 07:20> 02/15/25 <Rose Michelle PA-C - Last Filed: 02/15/25 09:36> 02/15/25 <Mario Hoyt MD - Last Filed: 02/15/25 09:42> Progress Note: A&P Assessment and plan (1) S/P partial lobectomy of lung: Status: Acute <Mini Angelica - Last Filed: 02/15/25 07:20> (2) Acute blood loss anemia: Status: Acute <Mini Angelica - Last Filed: 02/15/25 07:20> (3) Primary malignant neoplasm of left lower lobe of lung: Status: Acute <Mini Angelica - Last Filed: 02/15/25 07:20> Assessment and Plan: Tisha is post op day 4 from a thorascopic left lobectomy for a non small cell lung cancer. Her H+H had dropped and received one unit of pRBC, feeling stronger now and no shortness of breath. She reports one bowel movement 2 days ago, she is regularly passing gas and urinating. Patient is tolerating liquids and advanced diet. Chest tube is draining sangenous fluid. Continued to encourage spirometry 10x every hour, and ambulation with support. <Mini Angelica - Last Filed: 02/15/25 07:20> Tisha is post op day 4 from a thorascopic left lobectomy for a non small cell lung cancer. Her H+H had dropped and received one unit of pRBC, feeling stronger now and no shortness of breath. She reports one bowel movement 2 days ago, she is regularly passing gas and urinating. Patient is tolerating liquids and advanced diet. Chest tube is draining sangenous fluid. Continued to encourage spirometry 10x every hour, and ambulation with support. Agree with above assessment and plan by Mini BARRIOS. Patient overall doing well POD #4 s/p VATS left lower lobectomy. Received 1U PRBC with appropriate rise over the weekend. Chest tube output has tapered off, no air leak on exam. CXR this am shows no air space on water seal, official read questioning pneumonia however she is clinically appearing well, WBC is improving, afebrile, no respiratory distress to suggest pneumonia. Likely post op changes, some atelectasis and therefore will hold off on abx. Chest tube removed uneventfully at bedside, post procedure film ordered. Incentive spirometry 10x/hr increase activity encouraged. H/H with slight drift this morning. Possibly home later today if comfortable on PO analgesics. <Rose Michelle PA-C - Last Filed: 02/15/25 09:36> Tisha is post op day 4 from a thorascopic left lobectomy for a non small cell lung cancer. Her H+H had dropped and received one unit of pRBC, feeling stronger now and no shortness of breath. She reports one bowel movement 2 days ago, she is regularly passing gas and urinating. Patient is tolerating liquids and advanced diet. Chest tube is draining sangenous fluid. Continued to encourage spirometry 10x every hour, and ambulation with support. Agree with above assessment and plan by Mini BARRIOS. Patient overall doing well POD #4 s/p VATS left lower lobectomy. Received 1U PRBC with appropriate rise over the weekend. Chest tube output has tapered off, no air leak on exam. CXR this am shows no air space on water seal, official read questioning pneumonia however she is clinically appearing well, WBC is improving, afebrile, no respiratory distress to suggest pneumonia. Likely post op changes, some atelectasis and therefore will hold off on abx. Chest tube removed uneventfully at bedside, post procedure film ordered. Incentive spirometry 10x/hr increase activity encouraged. H/H with slight drift this morning. Possibly home later today if comfortable on PO analgesics. As noted <Mario Hoyt MD - Last Filed: 02/15/25 09:42> Time Spent With Patient Time: Total time managing care of this patient today ____ minutes. <PayPropo - Last Filed: 02/15/25 07:20> Quality Stroke Does the patient have a stroke diagnosis?: No <PayPropo - Last Filed: 02/15/25 07:20> VTE Prior VTE?: No <PayPropo - Last Filed: 02/15/25 07:20> VTE Risk Level:: Surgical - low <PayPropo - Last Filed: 02/15/25 07:20> VTE Device Contraindication: N/A - Device Ordered <[email or web address] - Last Filed: 02/15/25 07:20> VTE Drug Contraindication: Treatment Not Indicated <PayPropo - Last Filed: 02/15/25 07:20>
[2025-02-15 07:22] LABS: Glucose, Whole Blood 104 mg/dL (60-115)
[2025-02-15 08:00] VITALS: BP 114/66; PULSE 86; RESP 20; TEMP 36.5; O2SAT 97
[2025-02-15 08:18] LABS: Hematocrit 22.1 % (37.0-47.0); Hemoglobin 7.4 g/dl (12.0-16.0); Mean Corpuscular HGB Conc 33.5 g/dl (31.0-35.0); Mean Corpuscular Hemoglobin 29.1 pg (27.0-33.0); Mean Platelet Volume 9.9 fL (9.4-12.3); NRBC Pct Auto 0.2 /100WBC (0.0-0.2); Platelet Count 312 X10*3/uL (160-400); Red Blood Count 2.54 X10*6/uL (4.20-5.50); Red Cell Distribution Width 14.3 % (11.0-16.0); White Blood Count 12.7 X10*3/uL (4.8-10.8)
[2025-02-15] MEDS: Docusate Sodium 100 MG CAPSULE PO (08:30)
[2025-02-15] MEDS: traMADoL HCL 50 MG TABLET 100 MG PO (08:30)
[2025-02-15] MEDS: glipiZIDE 10 MG TABLET PO (08:30)
[2025-02-15] MEDS: metFORMIN HCl ER 500 MG TAB.ER.24H 1000 MG PO (08:30)
[2025-02-15] MEDS: buPROPion HCl XL 300 MG TAB.ER.24H PO (08:30)
[2025-02-15] MEDS: buPROPion HCl XL 150 MG TAB.ER.24H PO (08:30)
[2025-02-15] MEDS: Loratadine 10 MG TABLET PO (08:30)
[2025-02-15] MEDS: polyethylene glycoL 3350 17 GM POWD.PACK PO (08:31)
[2025-02-15] MEDS: 0.9 % Sodium Chloride Flush 3 ML SYRINGE IVFLUSH (08:39)
[2025-02-15 08:52] LABS: Anion Gap 12 (12-20); Blood Urea Nitrogen 7 mg/dL (9-16); Calcium 8.5 mg/dL (8.4-10.2); Carbon Dioxide 28 mmol/L (22-29); Chloride 102 mmol/L (96-108); Creatinine Clr Calc Pharmacy 102.6; Estimated Glomerular Filt Rate > 60; Glucose Random 90 mg/dL (60-115); Potassium 4.1 mmol/L (3.3-5.1); Sodium 138 mmol/L (135-145)
[2025-02-15 11:40] LABS: Glucose, Whole Blood 158 mg/dL (60-115)
[2025-02-15 11:48] VITALS: BP 126/64; PULSE 89; RESP 20; TEMP 36.7; O2SAT 95
--- NOTE | 2025-02-15 12:58 | P.PNIM_ITS ---
Subjective Subjective Date of Service: 02/15/25 Interval History: Status post lobectomy for lung cancer developed postop anemia received 1 unit of packed RBC hematocrit improved This a.m. feels better denies lightheadedness, no dizziness, no shortness of breath, no palpitations, no chest pain had a normal more bowel movement 1 day ago Hematocrit dropped down 22 this a.m., no blood in stools , Review of Systems All other system reviewed and are negative Physical Exam 2 Vital Signs: Vital Signs: Last Vital Signs Temp 98.0 F 02/15/25 11:48 Pulse 89 02/15/25 11:48 Resp 20 02/15/25 11:48 BP 126/64 02/15/25 11:48 Pulse Ox 95 02/15/25 11:48 O2 Del Method Room Air 02/15/25 11:48 O2 Flow Rate 3 02/13/25 23:22 BMI result Body Mass Index 32.2 Const: Other: General: AOx3, no acute distress No JVD Resp: CTA bilaterally, left diminished breath sounds CVS: S1, S2, RRR GI: +BS, NT, no distention Skin: Warm, dry,pallor Neuro: Nonfocal Extremities: No edema Psych: Appropriate affect Objective Data Active Medications Albuterol Sulfate (Albuterol Sulfate 90 Mcg 8 Gm Inhaler) 2 puff INHALE QID PRN PRN Reason: Wheezing Last Admin: 02/12/25 08:46 Dose: 2 puff Documented By: RENEE Aripiprazole (Aripiprazole 20 Mg Tablet) 20 mg PO BEDTIME [facility] Last Admin: 02/14/25 20:41 Dose: 20 mg Documented By: GAGE Atorvastatin Calcium (Atorvastatin Calcium 40 Mg Tablet) 40 mg PO BEDTIME [facility] Last Admin: 02/14/25 20:41 Dose: 40 mg Documented By: GAGE Bupropion HCl (Bupropion Hcl Xl 300 Mg Tab.Er.24h) 300 mg PO DAILY [facility] Last Admin: 02/15/25 08:30 Dose: 300 mg Documented By: THUAN Bupropion HCl (Bupropion Hcl Xl 150 Mg Tab.Er.24h) 150 mg PO DAILY [facility] Last Admin: 02/15/25 08:30 Dose: 150 mg Documented By: THUAN Calcium Carbonate (Calcium Carbonate 750 Mg Tab.Chew) 750 mg PO Q4H PRN PRN Reason: Heartburn Clonazepam (Clonazepam 1 Mg Tablet) 1 mg PO BID PRN PRN Reason: Anxiety Last Admin: 02/15/25 05:49 Dose: 1 mg Documented By: GAGE Dextrose (Dextrose 50 % 25 Gm/50 Ml Syringe) 25 gm IVPUSH Q15M PRN; Protocol PRN Reason: per Hypoglycemia Standing Ord. Docusate Sodium (Docusate Sodium 100 Mg Capsule) 100 mg PO BID [facility] Last Admin: 02/15/25 08:30 Dose: 100 mg Documented By: THUAN Ferrous Sulfate (Ferrous Sulfate 324 Mg Tablet.Dr) 324 mg PO DAILY@1200 [facility] Last Admin: 02/14/25 12:38 Dose: 324 mg Documented By: AMELIE Fluticasone Propionate (Fluticasone Propionate Nasal 16 Gm [place]) 2 spray NOSTRIL-B DAILY PRN PRN Reason: Allergy Symptoms Glipizide (Glipizide 10 Mg Tablet) 10 mg PO BID [facility] Last Admin: 02/15/25 08:30 Dose: 10 mg Documented By: THUAN Glucose (Glucose Gel 15 Gm Gel..Gram.) 15 gm PO Q15M PRN; Protocol PRN Reason: per Hypoglycemia Standing Ord. Haloperidol (Haloperidol 5 Mg Tablet) 2.5 mg PO BEDTIME [facility] Last Admin: 02/14/25 20:41 Dose: 2.5 mg Documented By: GAGE Hydromorphone HCl (Hydromorphone Hcl 0.5 Mg/0.5 Ml Syringe) 0.5 mg IVPUSH Q3H PRN; Protocol PRN Reason: Pain, Severe (Pain Scale 7-10) Last Admin: 02/15/25 00:32 Dose: 0.5 mg Documented By: GAGE Hydroxyzine HCl (Hydroxyzine Hcl 50 Mg Tablet) 50 mg PO TID PRN PRN Reason: anxiety Acetaminophen (Ofirmev) 1,000 mg in 100 mls @ 400 mls/hr IV Q6H [facility] Last Infusion: 02/15/25 06:20 Dose: Infused Documented By: GAGE Insulin Human Lispro (Insulin Lispro 100 Unit/Ml 3 Ml Vial) 0 unit SUBCUT QIDACHS [facility]; Protocol Last Admin: 02/15/25 07:39 Dose: Not Given Documented By: THUAN Non-Admin Reason: No Insulin Coverage Loratadine (Loratadine 10 Mg Tablet) 10 mg PO DAILY [facility] Last Admin: 02/15/25 08:30 Dose: 10 mg Documented By: THUAN Magnesium Hydroxide (Milk Of Magnesia 30 Ml Oral.Susp) 30 ml PO DAILY PRN PRN Reason: Constipation Last Admin: 02/12/25 21:49 Dose: 30 ml Documented By: SHAYE Comments: pt requested for constipation Melatonin (Melatonin 3 Mg Tablet) 6 mg PO BEDTIME PRN PRN Reason: Insomnia Last Admin: 02/14/25 20:42 Dose: 6 mg Documented By: GAGE Metformin HCl (Metformin Hcl Er 500 Mg Tab.Er.24h) 1,000 mg PO BID [facility] Last Admin: 02/15/25 08:30 Dose: 1,000 mg Documented By: THUAN Montelukast Sodium (Montelukast Sodium 10 Mg Tablet) 10 mg PO BEDTIME [facility] Last Admin: 02/14/25 20:41 Dose: 10 mg Documented By: GAGE Non-Formulary Medication (Levothyroxine [Tirosint-Michelle]) 400 mcg PO DAILY [facility] Omeprazole (Omeprazole 20 Mg Capsule.Dr) 20 mg PO DAILY@1630 [facility] Last Admin: 02/14/25 16:09 Dose: 20 mg Documented By: AMELIE Ondansetron HCl (Ondansetron Hcl 4 Mg/2 Ml Vial) 4 mg IVPUSH Q6H PRN PRN Reason: Nausea and Vomiting Last Admin: 02/12/25 08:53 Dose: 4 mg Documented By: TJ Polyethylene Glycol (Polyethylene Glycol 3350 17 Gm Powd.Pack) 17 gm PO DAILY [facility] Last Admin: 02/15/25 08:31 Dose: 17 gm Documented By: THUAN Sodium Chloride (0.9 % Sodium Chloride Flush 3 Ml Syringe) 3 ml IVFLUSH QSHIFT [facility] Last Admin: 02/15/25 08:39 Dose: 3 ml Documented By: THUAN Tramadol HCl (Tramadol Hcl 50 Mg Tablet) 100 mg PO Q4H PRN PRN Reason: Pain, Moderate(Pain Scale 4-6) Last Admin: 02/15/25 08:30 Dose: 100 mg Documented By: THUAN Labs 02/15/25 07:08 02/15/25 07:08 Labs: Laboratory Results - last 24 hr 02/14/25 02/14/25 02/15/25 16:00 20:16 07:08 MCV 87.0 MCH 29.1 MCHC 33.5 RDW 14.3 Plt Count 312 D MPV 9.9 Absolute Nucleated RBC 0.030 H Nucleated RBC % (auto) 0.2 Anion Gap 12 Estim Creat Clear Calc 102.6 Estimated GFR > 60 POC Glucose 108 234 H Random Glucose 90 Calcium 8.5 02/15/25 02/15/25 07:18 11:31 MCV MCH MCHC RDW Plt Count MPV Absolute Nucleated RBC Nucleated RBC % (auto) Anion Gap Estim Creat Clear Calc Estimated GFR POC Glucose 104 158 H Random Glucose Calcium Assessment and Plan (1) Acute blood loss anemia: Status: Acute (2) S/P partial lobectomy of lung: Status: Acute Plan 54-year-old female with a PMH significant for [id number] type 2 diabetes, HTN, HLD, thyroid cancer s/p thyroidectomy, COPD, GERD, DANIEL on 2L NC at night, and schizoaffective disorder, and bipolar disorder who was admitted to the hospital under thoracic surgery services for elective left lower lobe lobectomy. Pt underwent recent biopsy that was consistent with [id number] lung cancer of left lower lobe. Hospitalist consult for medical management. POD2. [id number] lung cancer S/p left lower lobectomy Chest tube removed today Acute blood loss anemia, H&H improved after 1 unit of packed RBC hematocrit slightly dropped today but patient asymptomatic Recommend outpatient close follow-up by General surgery with repeat CBC HTN BP soft post-op, currently 126/64 recommend to hold lisinopril upon discharge follow BP as outpatient Qsd-xmomnpl-xxroshgma type 2 diabetes Continue Diabetic diet and resume home medications glipizide and metformin monitor blood sugar closely. COPD Not in acute exacerbation Continue home inhalers Hypothyroidism Continue levothyroxine GERD Continue PPI Mood disorder Continue home mood stabilizers Will sign off Quality Stroke Does the patient have a stroke diagnosis?: No VTE Prior VTE?: No VTE Risk Level:: Surgical - low VTE Device Contraindication: N/A - Device Ordered VTE Drug Contraindication: Treatment Not Indicated
[2025-02-15] MEDS: Ferrous Sulfate 324 MG TABLET.DR PO (13:15)
--- NOTE | 2025-02-15 14:00 | MHC.CM.PN ---
Pt has been medically cleared for DC, she will go home via family transport, plan is self care.
--- NOTE | 2025-02-15 16:45 | PM.DS ---
DS: Providers Provider Date of Service: 02/15/25 Date of admission: 02/11/25 12:16 Date of discharge: 02/15/25 Primary care physician: Linda Murphy DO Attending physician on admission: Mario Hoyt Consults: 02/11/25 15:13 Consult to Hospitalist Routine Comment: Consulting Provider: [facility] Hospitalists Reason For Exam: s/p left lower lobectomy, DANIEL, HTN, DM Attending physician on discharge: Mario Hoyt DS: Diagnosis Discharge Diagnosis (1) Acute blood loss anemia: Status: Acute (2) S/P partial lobectomy of lung: Status: Acute DS: Summary Hospital Course Hospital Course: HPI AT ADMISSION: Patient was status post IR biopsy of left lower lobe lung mass. 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 Patient missed her appointment for pulmonary function tests which will be rescheduled. Patient was PET scan demonstrates isolated/early staged disease involving the left lower lobe only. Patient will have PFT's rescheduled. In the meantime, presuming that these results are acceptable, risks, benefits, alternatives of thorascopic possible open left lower lobectomy were reviewed with the patient and included but not limited to bleeding, infection, recurrence with tumor, numbness, pain, scarring and the patient wishes to proceed. All questions answered. Arrangements were made for this. She now presents for the planned procedure. HOSPITAL COURSE: On 02/11/25, bronchoscopy, vats left lower lobectomy , mediastinal lymph node sampling, intercostal nerve block was performed by Dr. Hoyt without immediate complication. 24F chest tube in place. The patient tolerated the procedure well. She was admitted post operatively for observation. She was found to have large amount of sanguineous drainage from her posterior incision site later in the evening requiring silk suture placement at bedside. She otherwise had an uneventful recovery course. Her H/H drifted down post op and this was followed. She felt fatigued with an H/H of 20 and therefore was transfused 1U PRBC with appropriate rise and improvement in her symptoms. Her activity was increased. Her chest tube output tapered off. She had a small air space on f/u imaging which decreased in size and remained very small. She was asymptomatic from respiratory standpoint. Her pleurvac had no leak and she was therefore placed to water seal without significant change. The chest tube was therefore removed on 02/15/25 without perceptible pneumothorax on f/u film. On the day of discharge, POD #4, she overall felt well. Her pain was mild and well controlled on oral analgesics. She was ambulating without difficulty. She was tolerating a solid diet. She had had a small BM. She was hemodynamically stable and had no shortness of breath and incisions were clean. Her chest tube was removed as above. She felt ready for discharge to home. She was discharged to home on 02/15/25 in stable condition with f/u in office in 1 week. She refused VNA services for chest tube site dressing changes. She is to follow up with her PCP. Her H/H did drift down slightly on the day of discharge but she felt very well and vitals were stable and therefore transfusion was held. She is already on home iron therapy. Repeat CBC later this week. Also on CXR there was note of left airspace opacity however this was felt to be related to surgery/atelectasis versus pneumonia as she was afebrile, had normal RR, no shortness of breath or significant cough. Her WBC count was also downtrending. Empiric abx treatment was therefore held. She was encouraged to ambulate and continue her incentive spirometer 10x/hr at home. It was also discussed with her to call the office/present to ED if she develops symptoms/signs of pneumonia such as fevers, malaise, significant shortness of breath, productive cough. Status at Discharge Functional status at discharge: independent ambulation Overall status at discharge: patient is progressing back to baseline Time Attestation Discharge Coordination Time (in mins): 45 Quality: Safe Use of Opioids Does Pt have an Active Cancer Diagnosis on the Problem List?: Yes Opioid Measure Date for [facility] Report: 01/17/25 Opioid Measure Time for [facility] Report: 10:01 Quality: Stroke Does the patient have a stroke diagnosis?: No Physical Exam Vital Signs: Vital Signs: Last Vital Signs Temp 98.0 F 02/15/25 11:48 Pulse 89 02/15/25 11:48 Resp 20 02/15/25 11:48 BP 126/64 02/15/25 11:48 Pulse Ox 95 02/15/25 11:48 O2 Del Method Room Air 02/15/25 11:48 O2 Flow Rate 3 02/13/25 23:22 BMI result Body Mass Index 32.2 Const: General: cooperative, healthy appearing, comfortable, no acute distress and alert Orientation/consciousness: patient oriented x3 Chest: Other: left VATS incisions clean, some surrounding ecchymosis, mild tenderness silk suture in place at left posterior site old chest tube site dressing in place Resp: Effort & Inspection: normal respiratory effort, able to speak in complete sentences, not labored, not tachypneic and no use of accessory muscles Cardio: Rate: regular rate Skin: General skin exam: no rashes or lesions noted Neuro: General: patient oriented x3 and moves all extremities DS: Data Data Completed and Pending Pending studies at discharge: Pending at discharge 02/11/25 10:10 Surgical [PTH] Routine Labs on day of discharge: Laboratory Results - last 24 hr 02/13/25 02/13/25 02/15/25 07:08 09:02 11:31 Smear Path Review SEE NOTE POC Glucose 158 H Blood Type O Negative Antibody Screen NEGATIVE Crossmatch See Detail Discharge Plan Discharge Anticipated Discharge Date/Time: 02/15/25 09:07 Patient Disposition: Home, Self-Care Discharge Diagnosis: s/p left lower lobectomy Referrals: Linda Murphy DO [Primary Care Provider] - 1 Week Mario Hoyt MD [Physician] - 1 Week Discharge Medications: New docusate sodium [Colace] 100 mg capsule 100 mg PO BID Qty: 30 0RF tramadol 50 mg tablet 50 mg PO Q4H PRN (Reason: pain) Qty: 20 0RF Continued Tirosint-Michelle 200 mcg/mL solution 400 mcg PO DAILY Qty: 60 5RF Rybelsus 7 mg tablet 7 mg PO DAILY montelukast 10 mg tablet 10 mg PO BEDTIME loratadine 10 mg Tablet 10 mg PO DAILY pantoprazole 20 mg tablet,delayed release (DR/EC) 20 mg PO DAILY@1700 ipratropium-albuterol 0.5 mg-3 mg(2.5 mg base)/3 mL solution for nebulization 3 ml inhalation QID PRN (Reason: asthma) hydroxyzine pamoate 50 mg capsule 50 mg PO TID PRN (Reason: anxiety) tramadol 50 mg tablet 50 mg PO Q8H PRN (Reason: severe pain) ascorbic acid (vitamin C) 250 mg tablet 250 mg PO BID@1200,2100 ferrous fumarate [Ferrocite] 324 mg (106 mg iron) tablet 324 mg PO BID@1200,2100 PNV b#95-ferrous fumarate-FA [] 28 mg iron- 800 mcg tablet 1 tab PO DAILY Asmanex HFA 100 mcg/actuation HFA aerosol inhaler 2 puff INHALATION BID omega-3 fatty acids 1,000 mg Capsule 1,000 mg PO DAILY lisinopril 2.5 mg tablet 2.5 mg PO DAILY@1200 metformin 500 mg tablet extended release 24 hr 1,000 mg PO BID atorvastatin 40 mg tablet 40 mg PO BEDTIME acetaminophen 650 mg tablet extended release 650 mg PO Q8H PRN (Reason: Pain) albuterol sulfate 90 mcg/actuation HFA aerosol inhaler 2 puff inhalation QID PRN (Reason: Wheezing) haloperidol 5 mg tablet 2.5 mg PO BEDTIME clonazepam [Klonopin] 1 mg tablet 1 mg PO BID PRN (Reason: Anxiety) glipizide 5 mg tablet 10 mg PO BID bupropion HCl 300 mg tablet extended release 24 hr 300 mg PO DAILY Patient Comments: to equal total dose of 450 mg daily aspirin 81 mg tablet,delayed release (DR/EC) 81 mg PO DAILY aripiprazole 20 mg tablet 20 mg PO BEDTIME bupropion HCl 150 mg tablet extended release 24 hr 150 mg PO DAILY Discharge Orders: Discharge Order (Routine); Ordered 02/15/25 Ordered By: Rose Michelle Diet: Diabetic diet Activity on Discharge: No heavy lifting Stand Alone Forms: Patient Portal Discharge page Print Language: Bulgarian Other Ambulatory Orders: Complete Blood Count Auto Diff (Routine) Timeframe: 20250218 Facility: [facility] - Location: Laboratory Ordered By: Rose Michelle Activity Restrictions/Additional Instructions: Apply an ice pack for short intervals (20 minutes on, followed by at least 20 minutes off) for the first 2 days. Do not apply heat. Do not use creams, lotions, or topical antibiotics. These can cause infection or allergic reaction. Ok to shower 48 hours after your surgery. You have steri strips (small white cloth strips) covering your incision- these will fall off ~1 week. Change chest tube site dressing every other day and as needed. Xeroform and 4x4 and tape. Follow up in office with Dr. Hoyt in 1 week. ([phone]) No heavy lifting (>10lbs) or strenuous activity! Call Your Doctor If: -Your temperature exceeds 101.5? F -You experience excessive pain or swelling -You have an unexpected reaction to medication -You have excessive bleeding -You experience continued vomiting/nausea -Your incision begins to separate -Your incision shows signs of infection such as increased redness, swelling, excessive pain, drainage (light blood or clear fluid is normal) or heat Care Plan Goals: Return to baseline health and resume normal activities following recovery period. Health Concerns: left lower lobe malignant neoplasm diabetes mellitus DANIEL Plan of Treatment: s/p VATS left lower lobectomy f/u in office in 1 week VNA for chest tube site dressing changes Assessment: Doing well post op. Discharge Date/Time: 02/15/25 14:21
== END 2025-02-15 14:21 | disposition home or self-care (01) | DRG 168 ==
LOC: HO.SSSA 12:17 → HO.IMC 14:49
PROVIDERS: Internal Medicine; Physician Assistant Surgical; Student in an Organized Health Care Education/Training Program; Admitting Provider Surgery; PCP Family Medicine; Visit Provider Surgery
PROC: 0BJ08ZZ Inspection of Tracheobronchial Tree, Via Natural or Artificial Opening Endoscopic (ICD-10-PCS; CPT 31622; 2025-02-11 07:30)
DX: C34.32 Malignant neoplasm of lower lobe, left bronchus or lung (principal); E89.0 Postprocedural hypothyroidism; G47.33 Obstructive sleep apnea (adult) (pediatric); D64.89 Other specified anemias; Z85.850 Personal history of malignant neoplasm of thyroid; Z99.81 Dependence on supplemental oxygen; Z87.891 Personal history of nicotine dependence; Z79.84 Long term (current) use of oral hypoglycemic drugs; Z79.899 Other long term (current) drug therapy
CPT/HCPCS: 36415; 71045; 80048; 82947; 85014; 85018; 85025; 85027; 86850; 86900; 86901; 86923; 88305; 88309; 88313; 94640; 94664; A4649; A7041; J0131; J0665; J0666; J0690; J1100; J1171; J2003; J2250; J2405; J2704; J3010; J7120; P9016

== ENCOUNTER 2025-02-11 12:16 | Outpatient (BNV) | payer OTHER, SELFPAY | END 2025-02-15 06:00 | PROVIDERS: Admitting Provider Surgery; PCP Family Medicine; Visit Provider Specialist | DX: Z48.03 Encounter for change or removal of drains (principal); J43.9 Emphysema, unspecified; J93.9 Pneumothorax, unspecified | CPT/HCPCS: 71045 ==

== ENCOUNTER 2025-02-11 12:16 | Outpatient (BNV) | payer OTHER, SELFPAY | END 2025-02-14 15:40 | PROVIDERS: Admitting Provider Surgery; PCP Family Medicine; Visit Provider Radiology Diagnostic Radiology | DX: J18.9 Pneumonia, unspecified organism (principal); J93.9 Pneumothorax, unspecified; Z90.2 Acquired absence of lung [part of] | CPT/HCPCS: 71045 ==

== ENCOUNTER → 2025-02-11 12:16 | Outpatient (BNV) | payer OTHER, SELFPAY | PROVIDERS: Admitting Provider Surgery; PCP Family Medicine; Visit Provider Student in an Organized Health Care Education/Training Program | DX: D62 Acute posthemorrhagic anemia (principal); Z90.2 Acquired absence of lung [part of] | CPT/HCPCS: 99222; 99232; 99233 ==

== ENCOUNTER 2025-02-17 10:08 | Outpatient (REF) | payer OTHER, SELFPAY ==
[2025-02-17 10:21] LABS: MANUAL DIFF FLAG NO
--- OUTSIDE RECORDS SUMMARY | 2025-02-17 11:24 | XMS_ITS | Encounter Summary ---
Author Organization [employer] Address [address] [place] [address] Care Team Providers Care Glaucoma Specialist Name Role Phone Linda Murphy DO Primary Care Provider [phone] DelNeri zavala PharmD Unavailable Unavail able Antionette Murphy PharmD Unavailable [phone] Reason for Visit * Reason Onset Date Comments Letter for School/Work 03/07/2023 Encounter Details Date Type Department Care Team ([facility] st Contact Info) Description 03/07/2023 Telephone [facility] MED[facility] [address] [place] [address] Linda Murphy DO [address] [place] [address] Letter for School/Work Social History Tobacco Use [...] mailed due to COVID Please contact at [phone] documented in this encounter Plan of Treatment Upcoming Encounters Date Type Department Care Team (Late st Contact Info) Description 02/26/2025 11:45 AM EDT Office Visit [facility] MED[facility] [address] [place] [address] Linda Murphy DO [address] [place] [address] documented as of this encounter Goals Goal Patient Goal Type Associated Problems Recent Progress Patient-Stated? Author Hemoglobin A1c < 7 Result Component 7.7(01/27/2025 11:54 AM EDT) No Neri Yang, PharmD documented as of this encounter Visit Diagnoses Not on filedocumented in this encounter Additional Health Concerns Assessment Noted Time PHQ-9 Depression Total Score: 0 02/27/20 23 11:42 AM EDT documented as of this encounter Care Teams Glaucoma Specialist Relationship Specialty Start Date End Date Linda Murphy DO [address] [place] [address] PCP - General Family Medicine 11/24/12 Neri Yang, PharmD [address] [place] [phone] Pharmacist Internal Medicine 11/23/22 10/17/23 Antionette Murphy PharmD [address] [place] [address] Pharmacist Internal Medicine 07/15/24 documented as of this encounter
--- OUTSIDE RECORDS SUMMARY | 2025-02-17 11:24 | XMS_ITS | Encounter Summary ---
Author Organization [employer] [facility] Address [address] [facility] 7t [place] [address] Care Team Providers Care Contracts Specialist Name Role Phone Linda Murphy DO Primary Care Provider Dellogono Neri PharmD Unavailable Unavail able Antionette Murphy PharmD Unavailable Reason for Visit * Reason Comments Med Refill Encounter Details Date Type Department Care Team (Late st Contact Info) Description 04/05/2023 Refill [facility] [address] [place] [address] Linda Murphy DO [address] [place] [address] Social History Tobacco Use Types Packs/Day Years [...] Description 02/26/2025 11:45 AM EDT Office Visit [facility] MED[facility] [address] [place] [address] Linda Murphy DO [address] [place] [address] documented as of this encounter Goals Goal [...] documented as of this encounter Care Teams Contracts Specialist Relationship Specialty Start Date End Date Linda Murphy DO [address] [place] [address] PCP - General Family Medicine 11/24/12 Neri Yang, PharmD [address] [place] [phone] Pharmacist Internal Medicine 11/23/22 10/17/23 Antionette Murphy PharmD [address] [place] [phone] Pharmacist Internal Medicine 07/15/24 documented as of this encounter
--- OUTSIDE RECORDS SUMMARY | 2025-02-17 11:24 | XMS_ITS | Encounter Summary ---
Author Organization [employer] Address [address] 7[address] [place] [address] Care Team Providers Care Orderlies Teacher Name Role Phone Linda Murphy DO Primary Care Provider [phone] Antionette Murphy PharmD Unavailable [phone] Reason for Visit * Reason Onset Date Comments Medication Question 11/13/2023 Encounter Details Date Type Department Care Team ([facility] st Contact Info) Description 11/13/2023 Telephone [facility] MEDICINE [address] [place] [address] Linda Murphy DO [address] [place] [address] Medication Question Social History Tobacco Use Types [...] 11/08 Physical appointment. Please contact pt at [phone] documented in this encounter Plan of Treatment Upcoming Encounters Date Type Department Care Team (Late st Contact Info) Description 02/26/2025 11:45 AM EDT Office Visit [facility] MEDICINE [address] [place] [address] Linda Murphy DO [address] [place] [address] documented as of this encounter Goals Goal Patient Goal Type Associated Problems Recent Progress Patient-Stated? Author Hemoglobin A1c < 7 Result Component 7.7(01/27/2025 11:54 AM EDT) No Neri Yang, EricD documented as of this encounter Visit Diagnoses Not on filedocumented in this encounter Additional Health Concerns Assessment Noted Time PHQ-9 Depression Total Score: 0 02/27/20 23 11:42 AM EDT documented as of this encounter Care Teams Orderlies Teacher Relationship Specialty Start Date End Date Linda Murphy DO [address] [place] [address] PCP - General Family Medicine 11/24/12 Antionette Murphy, Kaiden [address] [place] [address] Pharmacist Internal Medicine 07/15/24 documented as of this encounter
--- OUTSIDE RECORDS SUMMARY | 2025-02-17 11:24 | XMS_ITS | Clinical Summary ---
Author Organization [address] [facility] Address [address] [place] [address] Phone Care Team Providers Care Rn Or Lpn Name Role Phone Lvelian Linda Juanito RAMESH Primary Care Provider [phone] Allergies No known active allergies Medications acetaminophen [...] 1:45 PM EST Office Visit Orthopedic [facility] [address] [phone] Gutierrez Ruiz DPM Controlled type 2 diabetes [...] 9:15 AM EDT Office Visit Orthopedic Surgery [facility] [address] [phone] Gutierrez Ruiz DPM [address] [address] Health Maintenance Due Date Last Done Comments Diabetes: Annual Foot Exam 1982 Diabetes: Annual Retina Eye Exam 1982 Breast Cancer Screening 04/01/2021 04/01/2019 Colorectal Cancer [...] age to complete this topic Meningococcal B Vaccine Aged Out No l onger eligible based on patient's age to complete this topic RSV Immunization Patients Under 20 months Aged Out No longer eligible based on patient's age to complete this topic Varicella Vaccines Aged Out No longer eligible based on patient's age to complete this topic Insurance [facility] Member Subscriber Plan / Payer (Ef fective 2013-Present) Name:Tisha Ruiz Relation to Subscriber:Self Name:Tisha Ruiz Payer ID:[id number] Group ID:[id number] Type:Not on file Address: [place] [address] [id number] Care Teams Rn Or Lpn Relationship Specialty Start Date End Date Linda Murphy DO [address] [place] [address] PCP - General Internal Medicine 04/09/19
--- OUTSIDE RECORDS SUMMARY | 2025-02-17 11:24 | XMS_ITS | Encounter Summary ---
Author Organization [employer] Address [address] [facility] 7t [place] [address] Care Team Providers Care Tornado Chaser Name Role Phone Linda Murphy DO Primary Care Provider [phone] Antionette Murphy PharmD Unavailable [phone] Reason for Visit * Reason Comments Med Refill Encounter Details Date Type Department Care Team ([facility] st Contact Info) Description 07/03/[address] [facility] MEDICINE [address] [place] [address] Linda Murphy DO [address] [place] [address] Tobacco dependence Social History Tobacco Use Types [...] Description 02/26/2025 11:45 AM EDT Office Visit [facility] MEDICINE [address] [place] [phone] Linda Murphy DO [address] [place] [address] documented as of this encounter Goals Goal Patient Goal Type Associated Problems Recent Progress Patient-Stated? Author Hemoglobin A1c < 7 Result Component 7.7(01/27/2025 11:54 AM EDT) No Neri Yang PharmD documented as of this encounter Visit Diagnoses Diagnosis Tobacco dependence Tobacco use disorder documented in this encounter Additional Health Concerns Assessment Noted Time PHQ-9 Depression Total Score: 0 02/27/20 23 11:42 AM EDT documented as of this encounter Care Teams Tornado Chaser Relationship Specialty Start Date End Date Linda Murphy DO [address] [place] [address] PCP - General Family Medicine 11/24/12 Antionette Murphy PharmD [address] [place] [address] Pharmacist Internal Medicine 07/15/24 documented as of this encounter
--- OUTSIDE RECORDS SUMMARY | 2025-02-17 11:24 | XMS_ITS | Encounter Summary ---
Author Organization [employer] Address [address] [facility] 7t [place] [address] Care Team Providers Care Assessment Counselor Name Role Phone Linda Murphy DO Primary Care Provider [phone] Neri Yang PharmD Unavailable Unavail able Antionette Murphy PharmD Unavailable Reason for Visit * Reason Onset Date Comments Results 10/08/2023 Encounter Details Date Type Department Care Team ([facility] st Contact Info) Description 10/08/2023 Telephone [facility] MED[facility]INE [address] [place] [address] Linda Murphy DO [address] [place], [place] [phone] Results Social History Tobacco Use Types Packs/Day [...] yesterday 10/07/2023 but was transferred to the [facility]. documented in this encounter Plan of Treatment Upcoming Encounters Date Type Department Care Team (Late st Contact Info) Description 02/26/2025 11:45 AM EDT Office Visit [facility] MED[facility] [address] [place] [address] Linda Murphy DO [address] [place] [address] documented as of this encounter Goals Goal [...] documented as of this encounter Care Teams Assessment Counselor Relationship Specialty Start Date End Date Linda Murphy DO [address] [place] [address] PCP - General Family Medicine 11/24/12 Neri Yang, PharmD [address] [place] [address] Pharmacist Internal Medicine 11/23/22 10/17/23 Antionette Murphy, EricD [address] [place] [address] Pharmacist Internal Medicine 07/15/24 documented as of this encounter
--- OUTSIDE RECORDS SUMMARY | 2025-02-17 11:24 | XMS_ITS | Encounter Summary ---
Author Organization [employer] Address [address] [facility] 7t [place] [address] Care Team Providers Care Laborer Golf Course Name Role Phone Linda Murphy DO Primary Care Provider [phone] Dellogono Neri PharmD Unavailable Unavail able Antionette Murphy PharmD Unavailable Reason for Visit * Reason Comments Med Refill Encounter Details Date Type Department Care Team (Late Contact Info) Description 04/10/2023 Refill [facility] [address] [place] [address] Linda Murphy DO [address] [place] [address] Social History Tobacco Use Types Packs/Day Years [...] Department Care Team (Late Contact Info) Description 02/26/2025 11:45 AM EDT Office Visit [facility] [address] [place] [address] Linda Murphy DO [address] [place] [address] documented as of this encounter Goals Goal [...] documented as of this encounter Care Teams Laborer Golf Course Relationship Specialty Start Date End Date [place] [address] PCP - General Family Medicine 11/24/12 Neri Yang, PharmD [address] [place] [address] Pharmacist Internal Medicine 11/23/22 10/17/23 Antionette Murphy, EricD [address] [place] [address] Pharmacist Internal Medicine 07/15/24 documented as of this encounter
--- OUTSIDE RECORDS SUMMARY | 2025-02-17 11:24 | XMS_ITS | Encounter Summary ---
Author Organization [employer] Address [address] [place] [address] 7t [place] [address] Care Team Providers Care Frozen Yogurt Maker Name Role Phone Linda Murphy DO Primary Care Provider [phone] DelNeri zavala PharmD Unavailable Unavail able Antionette Murphy PharmD Unavailable Reason for Referral * Imaging (Routine) - Canceled Specialty Diagnoses / Procedures Referred By Rolf pascual Referred To Contact Radiology Diagnoses Hilar mass Procedures CT Chest w/o Contrast Nora Astudillo FNP [address] [place] [address] Phone: tel: fax: [address] Phone: tel: fax: Referral ID Status Reason Start Date Expiration Date V isits Requested Visits Authorized [id number] Canceled 10/11/2023 10/10/2024 1 1 Encounter Details Date Type Department Care Team (Late st Contact Info) Description 10/11/2023 Orders Only [facility] [address] [place] [address] Nora Astudillo FNP [address] [place] [address] Hilar mass (Primary Dx) Social History Tobacco [...] Description 02/26/2025 11:45 AM EDT Office Visit [facility] MEDICINE [address] [place] [address] Linda Murphy DO [address] [place] [address] Scheduled Orders Name Type Priority Associated Diagnoses [...] documented as of this encounter Care Teams Frozen Yogurt Maker Relationship Specialty Start Date End Date Linda Murphy DO [address] [place] [address] PCP - General Family Medicine 11/24/12 Neri Yang, PharmD [address] [place] [address] Pharmacist Internal Medicine 11/23/22 10/17/23 Antionette Murphy PharmD [address] [place] [address] Pharmacist Internal Medicine 07/15/24 documented as of this encounter
[2025-02-17 11:25] LABS: Basophils Absolute Auto 0.1 X10*3/uL (0.0-0.2); Basophils Percent Auto 0.3 % (0-2); Eosinophils Absolute Auto 0.7 X10*3/uL (0.0-0.4); Eosinophils Percent Auto 3.7 % (0-4); Hematocrit 27.3 % (37.0-47.0); Hemoglobin 8.8 g/dl (12.0-16.0); Imm Gran Abs Auto 0.65 X10*3/uL (0.00-0.03); Imm Gran Pct Auto 3.6 % (0.0-0.4); Lymphocytes Absolute Auto 3.1 X10*3/uL (1.2-4.9); Lymphocytes Percent Auto 16.9 % (20-40); Mean Corpuscular HGB Conc 32.2 g/dl (31.0-35.0); Mean Corpuscular Hemoglobin 28.7 pg (27.0-33.0); Mean Corpuscular Volume 88.9 fL (80.0-98.0); Mean Platelet Volume 9.6 fL (9.4-12.3); Monocytes Absolute Auto 1.4 X10*3/uL (0.1-1.2); Monocytes Percent Auto 7.5 % (2-11); NRBC Pct Auto 0.2 /100WBC (0.0-0.2); Neutrophils Absolute Auto 12.2 x10*3/uL (2.0-8.3); Platelet Count 435 X10*3/uL (160-400); Red Blood Count 3.07 X10*6/uL (4.20-5.50); Red Cell Distribution Width 15.1 % (11.0-16.0)
--- OUTSIDE RECORDS SUMMARY | 2025-02-17 11:25 | XMS_ITS | Encounter Summary ---
Author Organization [employer] Address [address] [facility] 7t [place] [address] Care Team Providers Care Body And Frame Technician Name Role Phone Linda Murphy DO Primary Care Provider [phone] Antionette Murphy PharmD Unavailable [phone] Reason for Visit * Reason Comments Med Refill Encounter Details Date Type Department Care Team ([facility] st Contact Info) Description 02/23/2024 Refill [facility] MED[facility] [address] [place] [address] Linda Murphy DO [address] [place] [address] Chronic obstructive pulmonary disease, unspecified COPD type [...] Description 02/26/2025 11:45 AM EDT Office Visit [facility] MEDIC[facility] [address] [place] [phone] Linda Murphy DO [address] [place] [address] documented as of this encounter Goals Goal [...] documented as of this encounter Care Teams Body And Frame Technician Relationship Specialty Start Date End Date Linda Murphy DO [address] [place] [phone] PCP - General Family Medicine 11/24/12 Antionette Murphy PharmD [address] [place] [phone] Pharmacist Internal Medicine 07/15/24 documented as of this encounter
--- OUTSIDE RECORDS SUMMARY | 2025-02-17 11:25 | XMS_ITS | Encounter Summary ---
Author Organization [employer] Address [address] [place] [address] Care Team Providers Care Cloth Dyeing Range Tender Name Role Phone Linda Murphy DO Primary Care Provider [phone] Antionette Murphy PharmD Unavailable [phone] Reason for Visit * Reason Comments Med Refill Encounter Details Date Type Department Care Team (Late st Contact Info) Description 02/11/2025 Refill [facility] [address] [place] [address] Linda Murphy DO [address] [place] [address] Chronic low back pain, unspecified back pain laterality, unspecified whether sciatica present Social History Tobacco Use Types Packs/Day Years Used Date Smoking Tobacco: Former Cigarettes Passive Smoke Exposure: Current Smokeless Tobacco: [...] Description 02/26/2025 11:45 AM EDT Office Visit [facility] MEDICINE [address] [place] [phone] Linda Murphy DO [address] [place] [phone] documented as of this encounter Goals Goal [...] documented as of this encounter Care Teams Cloth Dyeing Range Tender Relationship Specialty Start Date End Date Linda Murphy DO [address] [place] [id number] PCP - General Family Medicine 11/24/12 Antionette Murphy, [place] [address] [place] [phone] Pharmacist Internal Medicine 07/15/24 documented as of this encounter
--- OUTSIDE RECORDS SUMMARY | 2025-02-17 11:25 | XMS_ITS | Encounter Summary ---
Author Organization [employer] Address [address] [facility] [address] [place] [address] Care Team Providers Care Log Carrier Operator Name Role Phone Linda Murphy DO Primary Care Provider [phone] Antionette Murphy PharmD Unavailable [phone] Reason for Visit * Reason Comments Med Refill Encounter Details Date Type Department Care Team ([facility] st Contact Info) Description 11/24/2023 Refill [facility] MED[facility]INE [address] [place] [address] Linda Murphy DO [address] [place] [address] Social History Tobacco Use Types Packs/Day Years [...] 11:45 AM EDT Office Visit [facility] MED[facility] [address] [place] [phone] Linda Murphy DO [address] [place] [phone] documented as of this encounter Goals Goal [...] documented as of this encounter Care Teams Log Carrier Operator Relationship Specialty Start Date End Date Linda Murphy DO [address] [place] [id number] PCP - General Family Medicine 11/24/12 Antionette Murphy PharmD [address] [place] [phone] Pharmacist Internal Medicine 07/15/24 documented as of this encounter
--- OUTSIDE RECORDS SUMMARY | 2025-02-17 11:25 | XMS_ITS | Clinical Summary ---
Author Organization [employer] Address [address] [place] [address] 7[address] [place] [address] Care Team Providers Care Aircraft Cabin Cleaner Name Role Phone Katherine Linda RAMESH Primary Care Provider PuAntionette ellison PharmD Unavailable [phone] Allergies Active Allergy Reactions Criticality Noted Date Comments Oxycodone High 05/04/2013 Other reaction(s): Stomach Pain Other Reaction(s): stomach pain Oxycodone-Acetaminophen 07/03/2024 Pollen Extract Unknown 10/20/2024 Medications COVID-19 At Home Antigen Test (QuickVue [...] 11/19/19 23 Active Flovent HFA 110 MCG/ACT inhalerIndicati ons:Chronic obstructive pulmonary disease, unspecified COPD type (CMS/HCC) INHALE 1 PUFF BY MOUTH TWICE DAILY IN THE MORNING AND IN THE EVENING 12 g 11 01/17/20 23 Active Tirosint-ROBERT 150 MCG/ML solution 11/01/20 23 Active clotrimazole (Lotrimin) 1 % creamIndication s:Tinea APPLY TO AFFECTED AREA(S) AND SURROUNDING AREA(S) TWICE DAILY IN THE MORNING AND EVENING 60 g 2 01/21/20 24 Active naloxone (Narcan) 4 mg/0.1 mL nasal spray Administer 1 spray (4 mg) into affected nostril(s) if needed for opioid reversal. 2 each 3 03/06/20 24 Active nicotine (Nicoderm CQ) 14 MG/24HR patchIndication s:Tobacco dependence Place 1 patch on the skin 1 times each day at the same time for 6 weeks 30 patch 1 05/06/20 24 Active montelukast (Singulair) 10 MG tablet TAKE 1 TABLET BY MOUTH EVERY EVENING 90 tablet 3 05/15/20 24 Active Blood Glucose Monitoring Suppl (Trinity Place HoldingsStyle Lite) deviceIndicatio ns:Type 2 diabetes mellitus without complication, without [...] 24 025 Active lidocaine (Lidoderm) 5 % patchIndication s:Acute post-traumatic headache, not intractable APPLY 1 TO 2 PATCHES TOPICALLY TO SKIN, LEAVE ON FOR 12 HOURS AND OFF FOR 12 HOURS DIRECTED 60 patch 3 07/15/20 24 Active ipratropium-alb uterol (Duo-Neb) 0.5-2.5 mg/3 mL nebulizer solutionIndicat ions:Chronic obstructive pulmonary disease, unspecified COPD type (CMS/HCC) INHALE 1 AMPULE USING A NEBULIZER FOUR TIMES DAILY NEEDED FOR ASTHMA OR (for COPD) 180 mL 2 07/23/20 24 Active hydrOXYzine pamoate (Vistaril) 50 MG capsule TAKE 1 CAPSULE BY MOUTH THREE TIMES DAILY NEEDED FOR ANXIETY 07/15/20 24 Active Alcohol Swabs (Alcohol Prep) 70 % padsIndications :Type 2 diabetes mellitus without complication, without long-term current use of insulin ([facility]) USE EVERY DAY UP TO TWICE DAILY 100 each 08/12/20 24 Active glucose blood (FREESTYLE LITE) test stripIndication s:Type 2 diabetes mellitus without complication, without long-term current use of insulin ([facility]) Use to check blood sugar up to twice daily 100 each 08/12/20 24 Active TRUEplus Lancets 33G miscIndications :Type 2 diabetes mellitus without complication, without long-term current use of insulin ([facility]) Use to check blood sugar up to twice daily 100 each 08/12/20 24 Active semaglutide (Rybelsus) 7 MG tablet TAKE 1 TABLET EVERY MORNING, 30 MINUTES BEFORE A MEAL ICD10= 30 tablet 5 08/26/20 24 Active Aspirin Low Dose 81 MG EC tabletIndicatio ns:Type 2 diabetes mellitus with other specified complication, unspecified whether terminal superintendent insulin use ([facility]) TAKE 1 TABLET BY MOUTH EVERY EVENING 90 tablet 1 09/02/20 24 Active metFORMIN XR (Glucophage-XR) 500 MG 24 hr tabletIndicatio ns:Type 2 diabetes mellitus without complication, without long-term current use of insulin ([facility]) TAKE 2 TABLETS BY MOUTH TWICE [...] acetaminophen (Tylenol 8 Hour) 650 MG ER tabletIndicatio ns:Acute post-traumatic headache, not intractable TAKE 1 TABLET BY MOUTH EVERY 8 HOURS NEEDED FOR PAIN OR FEVER 60 tablet 3 12/01/19 25 Active tiotropium (Spiriva HandiHaler) 18 MCG inhalation capsuleIndicati ons:Chronic obstructive pulmonary disease, unspecified COPD type (CMS/HCC) USE 1 CAPSULE FOR INHALATION ONCE A DAY DO NOT SWALLOW CAPSULE 30 capsule 12/01/19 25 Active Lubricants (K-Y Jelly) gel Apply desired amount topically to vaginal area as needed for dryness 113 g 12/23/19 25 Active Mometasone Furoate (Asmanex HFA) 100 MCG/ACT aerosol Inhale 2 Act (200 mcg) 2 times daily. 13 g 12/23/19 25 Active naproxen (Naprosyn) 500 MG tablet Take 1 tablet (500 mg) by mouth if needed in the morning and at bedtime for mild pain. 30 tablet 12/23/19 25 026 Active albuterol (Ventolin HFA) 108 (90 Base) MCG/ACT inhalerIndicati ons:Chronic obstructive pulmonary disease, unspecified COPD type (CMS/HCC) Inhale 2 puffs every 4 (four) hours if needed for wheezing or shortness of breath. 18 g 12/23/19 25 Active nicotine (Nicoderm, Step 1) [...] THE EVENING WITH VIT C 180 tablet 12/23/19 25 Active pantoprazole (ProtoNix) 20 MG EC tabletIndicatio ns:Chronic GERD TAKE 1 TABLET BY MOUTH TWICE DAILY AT NOON AND IN THE EVENING 180 tablet 3 12/23/19 25 Active lisinopril 2.5 MG tablet TAKE 1 TABLET BY MOUTH EVERYDAY AT NOON 90 tablet 3 12/23/19 25 Active traMADol (Ultram) 50 MG tabletIndicatio ns:Chronic low back pain, unspecified back pain laterality, [...] split. 30 tablet 01/20/20 25 026 Active methocarbamol (Robaxin) 500 MG tablet Take 1 tablet by mouth every 6 (six) hours during the day. 07/06/20 24 Active Vit-Fe Fumarate-FA ( Vitamins) 28-0.8 MG tablet TAKE 1 TABLET BY MOUTH EVERYDAY AT NOON 90 tablet 3 01/30/20 25 Active Vit-Fe Fumarate-FA ( Vitamins) 28-0.8 MG tablet TAKE 1 TABLET BY MOUTH EVERYDAY AT NOON 90 tablet 3 01/23/20 24 025 Discontinued Active Problems Problem Noted Date Diagnosed Date Sprain and strain of ankle 02/11/2025 Goiter 02/11/2025 Hypothyroidism 02/11/2025 Headache 02/11/2025 Heart palpitations 02/11/2025 Hot flashes 02/11/2025 Hypercalcemia 02/11/2025 Incomplete right bundle branch block 02/11/2025 Mass of lower lobe of left lung 02/11/2025 Morbid obesity 02/11/2025 Multinodular goiter 02/11/2025 Patellofemoral arthritis of right knee Post-menopause bleeding 02/11/2025 Postoperative hypothyroidism 02/11/2025 Overview (02/11/2025): some degree of thyroid hormone malabsorption Sacroiliitis 02/11/2025 Uterine fibroid 02/11/2025 Varicose veins of right lower extremity with inf lammation 02/11/2025 Vitamin D deficiency 02/11/2025 Vomiting 02/11/2025 Weakness 02/11/2025 History of thyroid cancer 02/11/2025 Overview (02/11/2025): thyroidectomy 2020 Leucocytosis 02/11/2025 Non-small cell lung cancer 01/27/2025 GERD (gastroesophageal reflux disease) DANIEL (obstructive sleep apnea) 12/22/2024 Toenail avulsion 12/22/2024 Onychomycosis 08/26/2024 Assessment & Plan (08/26/2024 11:45 AM [...] -f/u with pain mgmt prn -advised contact [facility] if sx change or worsen Leukocytosis 11/08/2023 [...] daily -cont regular BS monitoring -re-referred to [facility] pharmacist for eval -cont statin and low-dose lisinopril daily -Cr/GFR nml Aug 2023 with nml urine microalbumin SEP 2022 -s/p optho eval Nov 2022 at [facility], review next visit -s/p nml monofilament MAY 2022 Allergic rhinitis 11/03/2015 Chronic bipolar disorder 11/03/2015 Assessment & Plan (01/28/2024 2:44 [...] near goal Aug 2023 -cont lipitor nightly History of tobacco use 11/03/2015 Assessment & Plan (01/28/2024 2:47 PM EDT): -strongly encouraged cessation -will re-refer to lung CA screening program pending CT results Resolved Problems Problem Noted Date Diagnosed Date Resolved Date Toenail avulsion, initial encounter 08/26/2024 01/27/2025 Assessment & Plan (08/26/2024 11:44 AM EDT): - partial, no evidence of nail bed infection or ingrown toenail - advised to keep area clean and dry and avoid trauma/more instrumentation of the toenail - refer to tenant selector - TB UTD Plantar callus 08/26/2024 01/27/2025 Assessment & Plan (08/26/2024 11:45 AM EDT): - non-tender, refer to podiatry for further f/u - advised regarding routine foot exam, re consult PRN Right leg pain 12/23/2023 12/23/2023 Acute vaginitis 03/20/2023 11/08/2023 Assessment & Plan (03/20/2023 11:12 AM EDT): prescription for fluconazole 150 x1 + Lotrisone cream to vulvar area PRN pruritis. recommended tight control of dibates agree with pharmamcy regarding dc jardiance will contact PCP to replace Jardiance for another medicaiton. Diarrhea 04/18/2018 02/26/2023 Encounters Date Type Department Care Team Description 02/11/2025 Refill [facility] [address] [place] [address] Linda Murphy DO Chronic low back pain, unspecified back pain laterality, unspecified whether sciatica present 02/11/2025 Orders Only GENERIC EXTERNAL DATA DEPARTMENT Provider, Generic External Data 02/08/[address] [phone] Linda Murphy DO Pre-op 02/01/2025 Orders Only GENERIC EXTERNAL DATA DEPARTMENT Provider, Generic External Data 01/28/2025 Refill [facility] [address] [place] [phone] Linda Murphy DO 01/27/2025 11:15 AM EDT Office Visit [facility] MEDICINE [address] [place] [phone] Linda Murphy DO Pre-op examination (Primary Dx); Type 2 diabetes mellitus without complication, without long-term current use of insulin ([facility]); Encounter for screening mammogram for malignant neoplasm of breast; Encounter for screening for malignant neoplasm of colon 01/27/2025 Travel 01/19/2025 11:45 AM EDT Telemedicine [address] [address] Linda Murphy DO Chest congestion (Primary Dx); Preop examination 01/19/2025 Telephone [facility] [address] [place] [phone] Linda Murphy, 01/19/2025 Travel 01/18/2025 Refill [facility] [address] [place] [address] Linda Murphy, Chronic low back pain, unspecified back pain laterality, unspecified whether sciatica present 01/12/2025 Telephone [facility] MED[facility] [address] [place] [address] No Lopez, RN NCNS LICENSING WORKER RV today 01/07/2025 Telephone [facility] [address] [place] [phone] No Lopez, KRYSTYNA NCNS for LICENSING WORKER RV today 01/07/[address] [address] No Lopez RN Recommend LICENSING WORKER Tier 2 01/05/2025 Orders Only GENERIC EXTERNAL DATA DEPARTMENT Provider, Generic External Data 12/23/2024 Refill [facility] [address] [place] [phone] Linda Murphy DO Chronic GERD 12/21/2024 Refill [facility] [address] [place] [address] Linda Murphy DO Chronic low back pain, unspecified back pain laterality, unspecified whether sciatica present 12/18/2024 Refill [facility] [address] [place] [phone] Linda Murphy DO 12/18/2024 Refill [facility] [address] [place] [address] Linda Murphy, Acute post-traumatic headache, not intractable; Chronic obstructive pulmonary disease, unspecified COPD type ([facility]) 12/18/2024 Refill [facility] [address] [place] [phone] Linda Murphy, Type 2 diabetes mellitus without complication, without long-term current use of insulin ([facility]); Type 2 diabetes mellitus with other specified complication, unspecified whether intermediate insulin use ([facility]); Chronic obstructive pulmonary disease, unspecified COPD type ([facility]) 12/15/2024 Orders Only GENERIC EXTERNAL DATA DEPARTMENT Provider, Generic External Data 12/07/2024 Telephone [facility] [address], [place] [phone] Linda Murphy DO 12/06/2024 Orders Only GENERIC EXTERNAL DATA DEPARTMENT Provider, Generic External Data 12/01/2024 Refill [facility] [address] [place] [address] Linda Murphy DO Acute post-traumatic headache, not intractable; Chronic obstructive pulmonary disease, unspecified COPD type ([facility]) 11/25/2024 Orders Only [facility] External Provider, [facility] from Last 3 Months Immunizations Name Administration [...] Smoke Exposure: Current Smokeless Tobacco: Never Tobacco Cessation:Counseling Given: Not Answered Comments:Went from 2 packs [...] Sign Reading Time Taken Comments Blood Pressure 118/70 01/27/2025 11:46 AM EDT Pulse 80 01/27/2025 11:46 AM EDT Temperature 36.1 ??C (96.9 ??F) 01/27/2025 11:46 AM E DT Respiratory Rate 21 01/27/2025 11:46 AM EDT Oxygen Saturation 96% 01/27/2025 11:46 AM EDT Inhaled Oxygen Concentration - - Weight 95.3 kg (210 lb) 01/27/2025 11:46 AM EDT Height 171.5 cm (5' 7.5 ) 01/27/2025 11:46 AM ED T Body Mass Index 32.41 01/27/2025 11:46 AM EDT Plan of Treatment Upcoming Encounters Date Type Department Care Team (Late st Contact Info) Description 02/26/2025 11:45 AM EDT Office Visit [facility] MEDIC[facility] [address], [place] [phone] Linda Murphy DO [address] [place], [place] [phone] Health Maintenance Due Date Last Done Comments [...] Smear 02/15/2025 02/15/2022, 02/15/2022 Diabetes: Hemoglobin A1C 04/29/2025 025, 01/20/2025, 08/13/2024, Additional history exists Diabetes: Urine Protein Screening 08/13/2025 08/13/2024, 01/14/2023, 11/29/2021, Additional history exists Lipid Panel 08/13/2025 08/13/2024, 08/11, 09/19/2022, Additional history exists Diabetes: Foot Exam 09/18/2025 09/18/2024, 08/26/2024, 08/26/2024, Additional history exists Depression Screening 01/19/2026 01/19/2025, 01/20/20 25 SDOH Screening 01/19/2026 01/19/2025 Tobacco Screening 01/27/2026 01/27/2025 HPV/Cotest 05/21/2027 05/21/2022, 05/11, 02/15/2022 DTaP/Tdap/Td Vaccines [...] Result Component 7.7(01/27/2025 11:54 AM EDT) No Dellogono, Neri, PharmD Procedures Procedure Name Priority Date/Time Associated Diagnosis Comments XR CHEST 1 VIEW Routine 02/15/2025 10:10 AM EDT XR CHEST 1 VIEW Routine 02/15/2025 7:14 AM EDT XR CHEST 1 VIEW Routine 02/14/2025 4:44 PM EDT XR CHEST 1 VIEW Routine 02/13/2025 8:52 AM EDT XR CHEST 1 VIEW Routine 02/12/2025 7:35 AM EDT XR CHEST 1 VIEW Routine 02/11/2025 12:30 PM EDT GLUCOSE, WHOLE BLOOD Routine 02/11/2025 6:35 AM EDT TYPE AND SCREEN Routine 02/01/2025 11:11 AM EDT POCT GLYCATED HEMOGLOBIN, TOTAL Routine 01/27/2025 11:54 AM EDT Pre-op examination Type 2 diabetes mellitus without complication, without long-term current use of insulin ([facility]) POCT GLUCOSE Routine 01/27/2025 11:54 AM EDT Pre-op examination Type 2 diabetes mellitus without complication, without long-term current use of insulin ([facility]) XR CHEST 2 VIEWS STAT 01/20/2025 11:3 [...] Maintenance Results * XR Chest 1 View (02/15/2025 10:10 AM EDT) Only the most recent of8 resultswithin the time period is included. Anatomical Region Laterality Modality Chest Radiographic Rosaura ging 02/15/2025 10:1 0 AM EDT Narrative 02/15/2025 10:47 AM EDT ? [facility] ?[address] ?[place] [address] ?XRay Report ? Signed ? Patient: Kiniel,Tisha ?MR#: [id number] ?? 61 ? : 1970 ?Acct:[id number] ? Age/Sex: 54 / F ?ADM Date: 02/11/25 ? Loc: HO.IMC ?478-1 ? Attending Dr: Mario Hoyt MD ? Ordering Physician: Rose Michelle PA-C ?? Date of Service: 02/15/25 ?? Procedure(s): XR chest 1V ?? Accession Number(s): [id number] ? cc: Linda Murphy DO; Rose Michelle PA-C ? EXAMINATION: ?? XR CHEST ? CLINICAL INFORMATION: ?? f/u chest tube removal ? COMPARISON: ?? Multiple priors, most recently earlier same day at 6:33 AM. ? TECHNIQUE: ?? Frontal view of the chest was obtained. ? FINDINGS: ?? Left-sided chest tube has been removed. ? Mild cardiac enlargement, similar. Mediastinal and hilar contours ?? appear normal. ? Lungs again demonstrate retrocardiac opacities. There may be a tiny ?? left effusion. ?? There is no perceptible pneumothorax. The right lung appears clear. ? Subcutaneous emphysema again noted in the left chest wall. ? XR/XR chest 1V ?? IMPRESSION: ?? 1. Removal of left chest tube. No perceptible pneumothorax. ?? 2. Persistent retrocardiac opacity. Cannot exclude a tiny left effusion. ?? 3. Mild cardiac enlargement. ?? 4. Subcutaneous emphysema in the left chest wall. ? Electronically signed by: ??Lexa Lei MD ??02/15/2025 10:43 AM EDT RP ? Dictated By: ?Lexa Lei MD ? Signed By: ?<Electronically signed by Lexa Lei MD in OV> ?02/15/25 1043 ? DD/ 1010 ? TD/TT: 02/15/25 1034 ? Machine Lead Burner: ? Procedure Note Elena Roth - 02/15/[address] [address] XRay Report Signed Patient: Ayanna RuiznMR#: [id number] 61 : 1970Acct:[id number] Age/Sex: 54 / FADM Date: 02/11/25 Loc: [facility] 478-[address]: Mario Hoyt MD Ordering Physician: Rose Michelle PA-C Date of Service: 02/15/25 Procedure(s): XR chest 1V Accession Number(s): [id number] cc: Linda Murphy DO; Rose Michelle PA-C EXAMINATION: XR CHEST CLINICAL INFORMATION: f/u chest tube removal COMPARISON: Multiple priors, most recently earlier same day at 6:33 AM. TECHNIQUE: Frontal view of the chest was obtained. FINDINGS: Left-sided chest tube has been removed. Mild cardiac enlargement, similar. Mediastinal and hilar contours appear normal. Lungs again demonstrate retrocardiac opacities. There may be a tiny left effusion. There is no perceptible pneumothorax. The right lung appears clear. Subcutaneous emphysema again noted in the left chest wall. XR/XR chest 1V IMPRESSION: 1. Removal of left chest tube. No perceptible pneumothorax. 2. Persistent retrocardiac opacity. Cannot exclude a tiny left effusion. 3. Mild cardiac enlargement. 4. Subcutaneous emphysema in the left chest wall. Electronically signed by: Lexa Lei MD 02/15/2025 10:43 AM EDT Dictated By: Lexa Lei MD Signed By: <Electronically signed by Lexa Lei MD in OV> 02/15/25 1043 DD/ 1010 TD/TT: 02/15/25 1034 Machine Lead Burner: [facility] External Provider IMG XR PROCEDURES Final Result * (ABNORMAL) Glucose, Whole Blood (02/11/2025 6:35 AM EDT) Only the most recent of4 resultswithin the time period is included. Glucose, Whole Blood 152(H) 60 - 115 mg/dL [facility] Comment:METER #: [id number] 02/11/2025 6:35 AM EDT 02/11/2025 6:39 AM EDT Generic External Data Provider LAB BLOOD ORDERAB LES Final Result Performing Organization Address [facility] de Phone Number [facility] [address] [place] [phone] * Type and screen (02/01/2025 11:11 AM EDT) Blood Type ON [facility] Antibody Screen NEGATIVE [facility] 02/01/2025 11:1 1 AM EDT 02/01/2025 11:28 AM EDT Narrative [facility] - 02/01/2025 12:04 PM EDT Spec expiration changed by SHIRLEY on 02/01/25Reason: PATWITNESSED BY BIRGIT:Call Blood Bank (ext. [phone]) to band patient on admission.Type and Screen in effect until 2300 on 02/11/25. Generic External Data Provider LAB BLOOD BANK TE ST ORDERABLES Final Result Performing Organization Address [facility] Co de Phone Number [facility] [address] [place] [phone] * (ABNORMAL) POCT HGB A1C (01/27/2025 11:54 AM EDT) Hemoglobin A1C 7.7(A) 4.0 - 6.0 % QC Media Lot # [id number] Lot# Expiration Date ,652 Blood 01/27/2025 11:5 4 AM EDT Linda Murphy DO POINT OF CARE TEST ENTER/JAME T ORDERABLES Final Result * POCT Glucose (01/27/2025 11:54 AM EDT) Glucose Blood, POC 154 60 - 200 mg/dL QC Media Lot # [id number] Lot# Expiration Date 510 Blood Capillary blood specimen / Unknown 01/27/2025 11:54 AM EDT us Linda Murphy DO POINT OF CARE TEST ENTER/JAME T ORDERABLES Final Result * XR Chest 2 Views (01/20/2025 11:30 AM EDT) Anatomical Region Laterality Modality Chest Radiographic Rosaura ging 01/20/2025 11:3 0 AM EDT Narrative 01/20/2025 11:50 AM EDT ? [facility] ?[address] ?[place] [address] ?XRay Report ? Signed ? Patient: Saar,Tisha ?MR#: [id number] ?? 61 ? : 1970 ?Acct:[id number] ? Age/Sex: 54 / F ?ADM Date: 01/20/25 ? Loc: HO.XRAY ? Attending Dr: Geneva Candelario MD ? Ordering Physician: Linda Murphy DO ?? Date of Service: 01/20/25 ?? Procedure(s): XR chest 2V ?? Accession Number(s): [id number] ? cc: Linda Murphy DO ? EXAMINATION: [...] ??Dillon Botello MD ??01/20/2025 11:48 AM EDT ?? RP ? Dictated By: ?Dillon Botello MD ? Signed By: ?<Electronically signed by Dillon Botello MD in OV> ?01/20/25 1148 ? DD/ 1130 ? TD/TT: 01/20/25 1140 ? Machine Lead Burner: ? Procedure Note Donotuseinterpreter, Image - 01/20/[address] [address] XRay Report Signed Patient: Ayanna RuiznMR#: [id number] 61 : 1970Acct:[id number] Age/Sex: 54 / FADM Date: 01/20/25 Loc: HO.KATIA Attending Dr: Geneva Candelario MD Ordering Physician: Linda Murphy DO Date of Service: 01/20/25 Procedure(s): XR chest 2V Accession Number(s): [id number] cc: Linda Murphy DO EXAMINATION: XR CHEST [...] Dillon Botello MD 01/20/2025 11:48 AM EDT Dictated By: Dillon Botello MD Signed By: <Electronically signed by Dillon Botello MD in OV> 01/20/25 1148 DD/ 1130 TD/TT: 01/20/25 1140 Machine Lead Burner: us Linda Murphy DO IMG XR PROCEDURES Final Resu lt * (ABNORMAL) CBC auto differential (01/20/2025 11:26 AM EDT) Only the most recent of2 resultswithin the time period is included. White Blood Count 13.2(H) 4.8 - 10.8 X10*3/uL [facility] Red Blood Count 4.84 4.20 - 5.50 X10*6/uL [facility] Hemoglobin 13.6 12.0 - 16.0 g/dl [facility] Hematocrit 41.2 37.0 - 47.0 % [facility] Mean Corpuscular Volume 85.1 80.0 - 98.0 fL [facility] Mean Corpuscular Hemoglobin 28.1 27.0 - 33.0 pg [facility] Mean Corpuscular HGB Conc 33.0 31.0 - 35.0 g/dl [facility] Red Cell Distribution Width 13.7 11.0 - 16.0 % [facility] Platelet Count 329 160 - 400 X10*3/uL [facility] Mean Platelet Volume 9.4 9.4 - 12.3 fL [facility] Neutrophils Percent Auto 62.0 45 - 73 % [facility] Imm Gran Pct Auto 0.6(H) 0.0 - 0.4 % [facility] Lymphocytes Percent Auto 29.6 20 - 40 % [facility] Monocytes Percent Auto 6.0 2 - 11 % [facility] Eosinophils Percent Auto 1.4 0 - 4 % [facility] Basophils Percent Auto 0.4 0 - 2 % [facility] NRBC Pct Auto 0.0 0.0 - 0.2 /100WBC [facility] Neutrophils Absolute Auto 8.2 2.0 - 8.3 x10*3/uL [facility] Imm Gran Abs Auto 0.08(H) 0.00 - 0.03 X10*3/uL [facility] Lymphocytes Absolute Auto 3.9 1.2 - 4.9 X10*3/uL [facility] Monocytes Absolute Auto 0.8 0.1 - 1.2 X10*3/uL [facility] Eosinophils Absolute Auto 0.2 0.0 - 0.4 X10*3/uL [facility] Basophils Absolute Auto 0.1 0.0 - 0.2 X10*3/uL [facility] NRBC Abs Auto 0.000 0.0 - 0.012 X10*3/uL [facility] Blood Venous blood specimen / Unknown 01/20/2025 11:26 AM EDT 01/20/2025 11:26 AM EDT Linda Murphy [employer] LAB BLOOD ORDERABLES Final R [facility] Performing Organization Address City/[facility]/ZIP Co de Phone Number [facility] [address] [place] [phone] * (ABNORMAL) Partial Thromboplastin Time, Activated (APTT) (01/20/2025 11:26 AM EDT) Only the most recent of2 resultswithin the time period is included. Partial Thromboplastin Time 44.2(H) 26.0 - 36.8 [facility] Comment:For information rega rding the monitoring of direct thrombininhibitors, please refer to Pharmacy. Blood Venous blood specimen / Unknown 01/20/2025 11:26 AM EDT 01/20/2025 11:26 AM EDT Linda Murphy [employer] LAB BLOOD ORDERABLES Final R esult Performing Organization Address City/[facility] Co de Phone Number [facility] [address] [place] [phone] * (ABNORMAL) Prothrombin Time-INR (01/20/2025 11:26 AM EDT) Only the most recent of2 resultswithin the time period is included. Prothrombin Time 10.1(L) 10.9 - 12.4 [facility] INTERNATIONAL NORM RATIO 0.9 0.9 - 1.1 [facility] Comment:INTERNATIONAL NORMAL IZED RATIO (INR) [...] AM EDT 01/20/2025 11:26 AM EDT Linda Lvelian RAMESH LAB BLOOD ORDERABLES Final R esult Performing Organization Address [facility] Co de Phone Number [facility] [address] [place] [address] [phone] * (ABNORMAL) Hemoglobin A1c (01/20/2025 11:26 AM EDT) Hemoglobin A1c 7.8(H) <6.0 % [facility] Comment:Hemoglobin A1C Refer ence Range Adults: 4.8 - 6.0 % Non diabetic: < 6.0 % Goal: < 7.0 %Additional Action Suggested: > 8.0 %Note: Hemoglobin A1c results are invalid for patients with abnormal amounts of HbF. Blood transfusions may impact the HbA1c concentration in the patient sample. Estimated Average Glucose 177 mg/dL [facility] Comment:eAG = Estimated ave rage glucose which is %A1C expressed asaverage glucose, using the formula of the X0B-BtqypetIvtodyp Glucose study (ADAG), Diabetes Care, Vol.31,#8,2007 Blood Venous blood specimen / Unknown 01/20/2025 11:26 AM EDT 01/20/2025 11:26 AM EDT Linda Katherine RAMESH LAB BLOOD ORDERABLES Final R esult Performing Organization Address [facility] Co de Phone Number [facility] [address] [place] [address] [phone] * (ABNORMAL) Basic Metabolic Panel (01/20/2025 11:26 AM EDT) Only the most recent of2 resultswithin the time period is included. Sodium 141 135 - 145 mmol/L [facility] Potassium 4.0 3.3 - 5.1 mmol/L [facility] Chloride 103 96 - 108 mmol/L [facility] Carbon Dioxide 31(H) 22 - 29 mmol/L [facility] Anion Gap 11(L) 12 - 20 [facility] Urea Nitrogen (BUN) 7(L) 9 - 16 mg/dL [facility] Creatinine, Serum 1.07 0.5 - 1.4 mg/dL [facility] Estimated Glomerular Filt Rate 54 [facility] Comment:Chronic Kidney Disea se: Estimated GFR < 60 mL/min/1.53j5Gymlnw Kidney Disease: Estimated GFR < 15 mL/min/1.73m2 Glucose 109 60 - 115 mg/dL [facility] Calcium 9.2 8.4 - 10.2 mg/dL [facility] Blood Venous blood specimen / Unknown 01/20/2025 11:26 AM EDT 01/20/2025 11:26 AM EDT us Linda Murphy DO LAB BLOOD ORDERABLES Final R esult [facility] [address] [place] [phone] * Gross and Microscopic Level 4 (01/05/2025 10:57 AM EST) 01/05/2025 10:5 7 AM EST 01/05/2025 11:19 AM EST Narrative [facility] - 01/26/2025 8:48 AM EDT ----- ------- Name: Tisha Ruiz ? Age/Sex: 54/F ? : 1970 Unit#: [id number] ?? Attend Dr: Mario oHyt MD ?Re01/05/25 ?Status: DEP SDC ? Location: HO.SSS ?Disch: ? ----- ------- SPEC : [id number] ?RECD: 01/05/25-1118 ? STATUS: ??SOUT ? REQ NUM: [id number] ? HILARY: 01/05/25-1056 ? SUBM DR: Rogelio Sales ? ENTERED: ??01/05/25-1120 ?SP TYPE: Surgical ? OTHR DR: Linda Murphy DO ?Mario Hoyt MD ORDERED: ??Gross Micro L4, IHC, Add. immunos, Napsin, TTF-1, NSCLC Lung bx ? COMMENTS: Block A (xT/xR Solid Tumor) + 3 unst. slides (PD-L1) sent to ?[facility] on 01/08/25. ?Addendum Addendum ??3 ?Entered: 01/26/-7524 [facility] testing: Genomic variants: Biologically Relevant: ? KMT2C (MLL3): ?p.Q49* Stop gain - LOF 34.0% ? TP53: ?p.Q144* Stop gain - LOF 21.7% ? ARID1A: ?p.Q1584* Stop gain - LOF 11.4% ? TERT: ?Copy number gain Tumor/normal matched analysis (potential germline): ?No normal sample was received, therefore tumor/normal matched analysis was not performed. Pertinent negatives? No pathogenic single nucleotide variants, insertions/deletions, or copy number changes found in: EGFR, KRAS, BRAF, ALK, ROS1, RET, MET, ERBB2 (HER2) Immunotherapy markers: ? Tumor mutational burden: ?7.9 m/MB ?81th percentile ? TMB-Low <10m/MB ? Microsatellite instability status: Stable For FDA-approved therapies, clinical trials and descriptions of genetic variants, see full report. See the full scanned report in the EMR - reports/pathology section (camera icon). Addendum Signed (signature on file) Anuradha Bateman 01/26/25 0848 ? ----- ------- Addendum ??2 ?Entered: 01/21/25-14 [facility] testing: ? PD-L1 expression (22C3 clone): ?Positive - High Tumor proportion score (TPS): 85% Combined positive score (CPS): 90 ? CONTINUED ON NEXT PAGE ----- ------- Name: Tisha Ruiz ? Age/Sex: 54/F ? : 1970 Unit#: [id number] ?? Attend Dr: Mario Hoyt MD ?Re01/05/25 ?Status: DEP SDC ? Location: HO.SSS ?Disch: ? ----- ------- SPEC : [id number] ?RECD: 01/05/25-1119 ? STATUS: ??SOUT ? REQ NUM: [id number] ? HILARY: 01/05/25-2797 ? SUBM DR: Rogelio Sales ? ENTERED: ??01/05/25-1121 ?SP TYPE: Surgical ? OTHR : Linda Murphy DO ?Mario Hoyt MD ORDERED: ??Gross Micro L4, IHC, Add. immunos, Napsin, TTF-1, NSCLC Lung bx ? COMMENTS: Block A (xT/xR Solid Tumor) + 3 unst. slides (PD-L1) sent to ?[facility] on 01/08/25. ?Addendum ?(Continued) See the full scanned report in the EMR - reports/pathology section (camera icon). Addendum Signed (signature on file) Anuradha Bhavana 01/21/2514 ? ----- ------- Addendum ??1 ?Entered: 01/07/25-140 Immunostains show the tumor is positive for [...] round to oval nuclei with nucleoli. ? CONTINUED ON NEXT PAGE ----- ------- Name: Tisha Ruiz ? Age/Sex: 54/F ? : 1970 Unit#: [id number] ?? Attend Dr: Mario Hoyt MD ?Re01/05/25 ?Status: DEP SDC ? Location: HO.SSS ?Disch: ? ----- ------- SPEC : [id number] ?RECD: 01/05/25-1118 ? STATUS: ??SOUT ? REQ NUM: [id number] ? HILARY: 01/05/25-1057 ? SUBM DR: Rogelio Sales ? ENTERED: ??01/05/25-1120 ?SP TYPE: Surgical ? OTHR DR: Linda Murphy DO ?Mario Hoyt MD ORDERED: ??Gross Micro L4, IHC, Add. immunos, Napsin, TTF-1, NSCLC Lung bx ? COMMENTS: Block A (xT/xR Solid Tumor) + 3 unst. slides (PD-L1) sent to ?[facility] on 01/08/25. ? Material Received ?? LLL lung nodule-3x20 g cores ? Gross Description Received in formalin labeled ?left lung? are 2 minute and 0.4 cm in greatest dimension irregular shards and cylindrical threads of espinoza-white tissue, submitted in toto in a cassette labeled A. ??The formalin is retained. CEDS This case was reviewed intradepartmentally. ??Results given to EDWARD Dixon and Dr. Hoyt on 01/06/2025 at 17:10. Special studies ordered and performed: ??Immunostains for TTF-1 and Napsin A on A1. Copies To: ?? Linda Murphy DO ?? [facility] ?? [address] ?? [place], [place] ?? [phone] ?? Mario Hoyt MD ?? [facility] ?? [address] ?? [place], [place] ?? [phone] ?? [email or web address] ?? Rogelio Sales ?? [address] ?? [place] ?? [phone] ?? [email or web address] ----- ------- Signed (signature on file) Anuradha Bateman 01/06/251717 ? ----- ------- ? END OF REPORT ? us Generic External Data Provider LAB CYTOLOGY ANDERSON VALENTINO Final Result [facility] [address] [place] [address] [phone] * CT Biopsy Lung Left (01/05/2025 10:18 AM EST) Anatomical Region Laterality Modality Computed Tomogra phy 01/05/2025 10:1 8 AM EST Narrative 01/06/2025 2:23 PM EST ? [facility] ?[address] ?[place] [address] ? CT Scan Report ? Signed ? Patient: Tisha Ruiz ?MR#: [id number] ?? 61 ? : 1970 ?Acct:[id number] ? Age/Sex: 54 / F ?ADM Date: 01/05/25 ? Loc: HO.SSS ? Attending Dr: Mario Hoyt MD ? Ordering Physician: Mario Hoyt MD ?? Date of Service: 01/05/25 ?? Procedure(s): CT biopsy lung LT ?? Accession Number(s): [id number] ? cc: Linda Murphy DO; Mario Hoyt MD ? Report Number: ?? [id number]: Total DLP = ??490.00 mGy-cm ?? 54-year-old female with enlarging left lower lobe lung nodule. Thoracic ?? surgery requests biopsy. ? PROCEDURES: ?? 1. Limited preprocedure CT of the chest. Permanent images saved in PACS. ?? 2. CT-guided biopsy of the left lower lobe lung nodule ?? 3. Limited postprocedure CT of the chest. Permanent images saved in ?? PACS. ? CLINICIANS: ?? Rgoelio Sales PA-C ? MEDICATIONS: ?? -Versed 1 [...] DD/ 1018 ? TD/TT: 01/05/25 1119 ? Machine Lead Burner: ? Procedure Note Gonzalez, Image - 01/06/[address] [address] [address] Scan Report Signed Patient: Ayanna RuiznMR#: [id number] 61 : 1970Acct:[id number] Age/Sex: 54 / FADM Date: 01/05/25 Loc: .[facility] Attending Dr: Mario Hoyt MD Ordering Physician: Mario Hoyt MD Date of Service: 01/05/25 Procedure(s): CT biopsy lung LT Accession Number(s): [id number] cc: Linda Murphy DO; Mario Hoyt MD Report Number: [id number]: Total DLP = 490.00 mGy-cm 54-year-old female [...] 01/06/25 1423 DD/ 1018 TD/TT: 01/05/25 1119 Machine Lead Burner: [facility] External Provider IMG CT PROCEDURES Final Result * (ABNORMAL) Urinalysis, Complete, with Reflex to Culture (12/06/2024 12:50 PM EST) Color Urine Yellow [facility] Appearance Urine Clear [facility] PH 7.5 5.0 - 9.0 [facility] Glucose Urine UA Negative Negative mg/dL [facility] Urine Blood Negative Negative [facility] Specific [place] - Urine 1.015 1.005 - 1.025 [facility] Urine Protein Trace Neg-Trace mg/dL [facility] Urine Ketones Negative Negative mg/dL [facility] Nitrite Urine Negative Negative [facility] Leukocyte Esterase Urine Small (1+)(A) Negative [facility] RBC Urine 0-2 0 - 2 /HPF [facility] Urine WBC 11-20(A) 0 - 5 /HPF [facility] Urine Squamous Epithelial Cell 0-2 0 - 2 /HPF [facility] Urine Bacteria Trace None Seen [facility] Hyaline Casts, Urine 0-2 0 - 2 /LPF [facility] 12/06/2024 12:5 0 PM EST 12/06/2024 1:03 PM EST Narrative [facility] - 12/06/2024 1:24 PM EST Urine, Clean Catch Generic External Data Provider LAB URINE ORDERAB LES Final Result Performing Organization Address [facility] Co de Phone Number [facility] [address] [place] [phone] * SARS-CoV-2 RNA, Influenza A/B, and RSV RNA, Ql NAAT (12/06/2024 12:50 PM EST) Influenza A PCR NEGATIVE Negative [facility] Influenza B PCR NEGATIVE Negative [facility] Resp Syncy Virus RNA Qual PCR NEGATIVE Negative [facility] SARS COV2 PCR NEGATIVE Negative [facility] Comment:All test results mus t [...] use by authorized laboratories.Testing performed on the [employer] GeneXpert utilizingreal-time RT-PCR.All SARS CoV2 and positive influenza A/B results arereported to [facility]. 12/06/2024 12:5 0 PM EST 12/06/2024 1:03 PM EST Generic External Data Provider LAB MICROBIOLOGY - GENERAL ORDERABLES Final Result Performing Organization Address [facility]/ZIP Co de Phone Number [facility] [address] [place] [phone] * (ABNORMAL) Hepatic Function Panel (12/06/2024 12:50 PM EST) Bilirubin, Total 0.2 0.0 - 1.0 mg/dL [facility] Bilirubin, Direct <0.2 0.0 - 0.5 mg/dL [facility] Aspartate Amino Transferase 23 5 - 31 U/L [facility] Alanine Aminotransferase 26 0 - 31 U/L [facility] Total Protein 8.1(H) 6.5 - 8.0 g/dL [facility] Albumin Level 4.4 3.5 - 5.0 g/dL [facility] Alkaline Phosphatase 92 39 - 117 U/L [facility] 12/06/2024 12:5 0 PM EST 12/06/2024 1:03 PM EST Generic External Data Provider LAB BLOOD ORDERAB LES Final Result Performing Organization Address [facility] de Phone Number [facility] [address] [place] [phone] * Culture, Urine, Routine (12/06/2024 12:00 AM EST) Urine Urine specimen obtained by clean catch procedure / Unknown 12/06/2024 12/06/2024 Comment:UACC Narrative [facility] - 12/07/2024 8:13 AM EST Urine Culture Report Result Urine Culture 50,000 to 100,000 cfu/ml Urine Culture Mixed bacterial cabrera characteristic of Urine Culture urogenital contamination. Specimen Source: Urine clean catch Generic External Data Provider LAB MICROBIOLOGY - GENERAL ORDERABLES Final Result Performing Organization Address [facility] de Phone Number [facility] [address] [place] [phone] * US Head Neck Soft Tissue (11/25/2024 2:35 PM EST) Anatomical Region Laterality Modality Head, Neck Ultrasound 11/25/2024 2:35 PM EST Narrative 11/26/2024 8:32 AM EST ? [facility] ?[address] ?[place] [address] ? Ultrasound Report ? Signed ? Patient: Kiniel,Tisha ?MR#: [id number] ?? 61 ? : 1970 ?Acct:[id number] ? Age/Sex: 54 / F ?ADM Date: 01/15/25 ? Loc: HO.US ? Attending Dr: Geneva Candelario MD ? Ordering Physician: Geneva Candelario MD ?? Date of Service: 11/25/24 ?? Procedure(s): US soft tiss head and/or neck ?? Accession Number(s): [id number] ? cc: Linda Murphy DO; Geneva Candelario [...] DD/ 1435 ? TD/TT: 11/25/24 1450 ? Machine Lead Burner: [facility] ? Procedure Note Gonzalez, Elena - 11/26/2024 [place] [address] Ultrasound Report Signed Patient: Ayanna RuiznMR#: [id number] 61 : 1970Acct:[id number] Age/Sex: 54 / FADM Date: 11/25/24 Loc: HO.US Attending Dr: Geneva Candelario MD Ordering Physician: Geneva Candelario MD Date of Service: 11/25/24 Procedure(s): US soft tiss head and/or neck Accession Number(s): [id number] cc: Linda Murphy DO; Geneva Candelario MD [...] by: Jamie Hassan MD 11/26/2024 08:29 AM [facility] Dictated By: Jamie Hassan MD Signed By: <Electronically signed by Jamie Hassan MD in OV> 11/26/24 0829 DD/ 1435 TD/TT: 11/25/24 1450 Machine Lead Burner: DAMI [facility] External Provider IM US PROCEDURES Edited Result - Final * Albumin, Random Urine W/Creatinine (08/13/2024 3:30 PM EDT) Creatinine, Urine 21.51 mg/dL [facility] Microalbumin Urine <5.0 mg/L H [facility] Microalbum Creatinine Ratio Ur TNP <30 ug/mg cr [facility] Comment:Unable to calculate albumin/creatinine ratio due to lowmicroalbumin or creatinine result. Urine (Urine, Random) 08/13/2024 3:30 PM EDT 08/13/2024 3:38 PM EDT us Linda Murphy DO LAB URINE ORDERABLES Final R esult Performing Organization Address [facility] Co de Phone Number [facility] [address] [place] [phone] * (ABNORMAL) Lipid Panel, Standard (08/13/2024 3:26 PM EDT) Triglycerides 257(H) <150 mg/dL [facility] Comment:Desirable Triglyceri de: less than 150 mg/dLBorderline High Triglyceride 150-199 mg/dLHigh Triglyceride: 200-499 mg/dLVery High Triglyceride: greater than or equal to 5OO mg/dL Cholesterol 151 <200 mg/dL [facility] Comment:Desirable Cholestero l: less than 200 mg/dLBorderline High Cholesterol: 200-239 mg/dLHigh Cholesterol: greater than 239 mg/dL LDL Cholesterol Calculated 61 <100 mg/dL [facility] Comment:Desirable LDL: less than 100 mg/dLNear Optimal/Above Optimal LDL: 110- 129 mg/dLBorderline High LDL: 130-159 mg/dLHigh LDL: 160-189 mg/dLVery High LDL: greater than or equal to 190 mg/dL HDL Cholesterol 39(L) >40 mg/dL [facility] Comment:Desirable HDL: great er than 40 mg/dL Note: This HDL assay may give artificially low results in patients with liver disease. Blood Venous blood specimen / Unknown 08/13/2024 3:26 PM EDT 08/13/2024 3:26 PM EDT us Linda Murphy DO LAB BLOOD ORDERABLES Final R esult [facility] [address] [place] [phone] [phone] * HIV Ab/Ag (SETH PAK) (08/26/2023 2:47 PM EDT) HIV AB/AG Nonreactive Nonreactive [facility] Comment:HIV-1 p24 Ag and/or HIV-1/HIV-2 Ab not detected.A test result that is nonreactive does not exclude thepossibility of exposure to or infection with HIV-1 and/orHIV-2. Nonreactive results in this assay for individualswith prior exposure to HIV-1 and/or HIV-2 may be due toantigen and antibody levels that are below the limit ofdetection of this assay.The [employer] HIV Ag/Ab Combo assay result andsupplemental assay results should be interpreted inconjunction with the patient's clinical presentation,history and other laboratory results. If the results areinconsistent with clinical evidence, additional testing issuggested to confirm the result. 08/26/2023 2:47 PM EDT 08/26/2023 2:47 PM EDT Linda Murphy DO LAB BLOOD ORDERABLES Final R esult Performing Organization Address [facility] Co de Phone Number [facility] [address] [place] [phone] * Hepatitis C Antibody with Reflex to HCV, RNA, Quantitative, Real-Time PCR (08/26/2023 2:47 PM EDT) Hepatitis C Antibody Nonreactive Nonreactive [facility] Comment:Antibodies to HCV no t detected; does not exclude early acuteHCV infection. 08/26/2023 2:47 PM EDT 08/26/2023 2:47 PM EDT Linda Murphy DO LAB BLOOD ORDERABLES Final R esult Performing Organization Address [facility] Co de Phone Number [facility] [address] [place] [phone] * HPV E6/E7 RFLX LUIS 16 18/45 (05/21/2022 3:45 PM EDT) HPV mRNA E6/E7 rflx Not Detected Not Detected [facility] Comment: Methodology: Blending Coordinator-Mediated Amplification This assay detects E6/E7 viral messenger RNA (mRNA) from 14 high-risk HPV types (16,18,31,33,35,39,45,51,52,56,58,59,66,68). Cervical sources are required for HPV testing. If a vaginal source from a patient who has had a total hysterectomy with removal of cervix was submitted, please contact the testing laboratory for alternative testing options. For additional information, please refer to http://education.[employer]/faq/YJD984t0 (This link if provided for information/ educational purposes only.) THIS TEST WAS PERFORMED AT: [facility] [address] [place] [address],[address] [place], [place] ??[phone] VALERIA DURANT MD 05/21/2022 3:45 PM EDT Fercho Palmer MD HISTORICAL/NON ORDERABLE LABS Fi nal Result [facility] [address] * Pap Smear (02/15/2022 12:00 AM EDT) Swab Linda Murphy DO LAB CYTOLOGY ORDERABLES Ce l Result [facility] [address] [place] [address], [place] [address] * DIGITAL BILATERAL SCREEN 1 (04/01/2019 2:56 [...] Most Recently Relevant to Health Maintenance Insurance [facility] [employer] Care Teams Aircraft Cabin Cleaner Relationship Specialty Start Date End Date Linda Murphy DO [address] [place], [place] [phone] PCP - General Family Medicine 11/24/12 Antionette Murphy PharmD [address] [place] [address] [phone] Pharmacist Internal Medicine 07/15/24
--- OUTSIDE RECORDS SUMMARY | 2025-02-17 11:25 | XMS_ITS | Encounter Summary ---
Author Organization [employer] Address [address] [facility] [address] [place] [address] Care Team Providers Care Senior Research Consultant Name Role Phone Linda Murphy DO Primary Care Provider [phone] Antionette Murphy PharmD Unavailable [phone] Reason for Visit * Reason Onset Date Comments Durable Medical Equipment 03/06/2024 Encounter Details Date Type Department Care Team ([facility] st Contact Info) Description 03/06/2024 Telephone [facility] [address] [place] [address] Linda Murphy DO [address] [place] [address] Durable Medical Equipment Social History Tobacco Use [...] Description 02/26/2025 11:45 AM EDT Office Visit [facility] [address] [place] [address] Linda Murphy DO [address] [place] [phone] documented as of this encounter Goals Goal [...] as of this encounter Care Teams Senior Research Consultant Relationship Specialty Start Date End Date Linda Murphy DO [address] [place] [address] PCP - General Family Medicine 11/24/12 Antionette Murphy, EricD [address] [place] [phone] Pharmacist Internal Medicine 07/15/24 documented as of this encounter
--- OUTSIDE RECORDS SUMMARY | 2025-02-17 11:25 | XMS_ITS | Encounter Summary ---
Author Organization [employer] Address [address] [facility] [address] [place] [address] Care Team Providers Care Barback Name Role Phone Linda Murphy DO Primary Care Provider DelNeri zavala PharmD Unavailable Unavail able Antionette Murphy PharmD Unavailable Reason for Visit * Reason Onset Date Comments letter michael lopez 07/26/2023 Encounter Details Date Type Department Care Team (Late st Contact Info) Description 07/26/2023 Telephone [facility] [address] [place] [address] Linda Murphy DO [address] [place] [address] letter michael lopez Social History Tobacco Use [...] to Medical side. Please contact pt at [phone] documented in this encounter Plan of Treatment Upcoming Encounters Date Type Department Care Team (Late st Contact Info) Description 02/26/2025 11:45 AM EDT Office Visit [facility] [address] [place] [address] Linda Murphy DO [address] [place] [address] documented as of this encounter Goals Goal [...] documented as of this encounter Care Teams Barback Relationship Specialty Start Date End Date Linda Murphy DO [address] [place] [address] PCP - General Family Medicine 11/24/12 Neri Yang, PharmD [address] [place] [phone] Pharmacist Internal Medicine 11/23/22 10/17/23 Antionette Murphy PharmD [address] [place] [phone] Pharmacist Internal Medicine 07/15/24 documented as of this encounter
--- OUTSIDE RECORDS SUMMARY | 2025-02-17 11:25 | XMS_ITS | Encounter Summary ---
Author Organization [employer] Address [address] [facility] [address] 7t [place] [address] Care Team Providers Care Casino Beverage Server Name Role Phone Linda Murphy DO Primary Care Provider Dellogla Neri PharmD Unavailable Unavail able Antionette Murphy PharmD Unavailable Reason for Visit * Reason Onset Date Comments triage 11/14/2022 Encounter Details Date Type Department Care Team (Late st Contact Info) Description 11/14/2022 Telephone [facility] MED[facility]INE [address] [place] [address] Linda Murphy DO [address] [place], [place] [phone] triage Social History Tobacco Use Types Packs/Day [...] EST Triage call Pt reports seen in [facility] ED today. Pt reports bruising on [...] Description 02/26/2025 11:45 AM EDT Office Visit [facility] [address] [place] [address] Linda Murphy DO [address] [place] [address] documented as of this encounter Visit Diagnoses Not on filedocumented in this encounter Care Teams Casino Beverage Server Relationship Specialty Start Date End Date Linda Murphy DO [address] [place] [address] PCP - General Family Medicine 11/24/12 Neri Yang PharmD [address] [place] [address] Pharmacist Internal Medicine 11/23/22 10/17/23 Antionette Murphy PharmD [address] [place] [address] [place] [address] Pharmacist Internal Medicine 07/15/24 documented as of this encounter
--- OUTSIDE RECORDS SUMMARY | 2025-02-17 11:25 | XMS_ITS | Encounter Summary ---
Author Organization [employer] [facility] Address 75 [facility] 7t [place] [address] Care Team Providers Care Catheter Builder Name Role Phone Linda Murphy DO Primary Care Provider Dellogla Neri PharmD Unavailable Unavail able Antionette Murphy PharmD Unavailable Reason for Visit * Reason Comments Med Refill Encounter Details Date Type Department Care Team (Late Contact Info) Description 07/08/2023 Refill [facility] MEDICINE [address] [place] [address] Linda Murphy DO 230 [place] [address] Pain Social History Tobacco Use Types Packs/Day [...] Description 02/26/2025 11:45 AM EDT Office Visit [facility] MEDICINE [address] [place] [address] Linda Murphy DO [address] [place] [address] documented as of this encounter Goals Goal [...] documented as of this encounter Care Teams Catheter Builder Relationship Specialty Start Date End Date Linda Murphy DO [address] [place] [address] PCP - General Family Medicine 11/24/12 Neri Yang, PharmD [address] [place] [address] Pharmacist Internal Medicine 11/23/22 10/17/23 Antionette Murphy PharmD [address] [place] [address] Pharmacist Internal Medicine 07/15/24 documented as of this encounter
--- OUTSIDE RECORDS SUMMARY | 2025-02-17 11:25 | XMS_ITS | Encounter Summary ---
Author Organization [employer] Address 75 [facility] 7t [place] [address] Care Team Providers Care Outside Sales Account Manager Name Role Phone Linda Murphy DO Primary Care Provider [phone] Antionette Murphy PharmD Unavailable [phone] Reason for Visit * Reason Onset Date Comments Med Refill 12/18/2024 Encounter Details Date Type Department Care Team (Late st Contact Info) Description 12/18/2024 Refill [facility] MEDICINE 230 [place] [address] Linda Murphy DO [address] [place] [address] Social History Tobacco Use Types Packs/Day Years [...] Description 02/26/2025 11:45 AM EDT Office Visit [facility] MEDICINE [address] [place] [address] Linda Murphy DO [address] [place] [address] documented as of this encounter Goals Goal [...] documented as of this encounter Care Teams Outside Sales Account Manager Relationship Specialty Start Date End Date Linda Murphy DO [address] [place] [address] PCP - General Family Medicine 11/24/12 Antionette Murphy PharmD [address] [place] [address] Pharmacist Internal Medicine 07/15/24 documented as of this encounter
--- OUTSIDE RECORDS SUMMARY | 2025-02-17 11:25 | XMS_ITS | Encounter Summary ---
Author Organization [employer] Address [address] [facility] [address] 7t [place] [address] Care Team Providers Care Customer Service Dispatcher Name Role Phone Linda Murphy DO Primary Care Provider [phone] Antionette Murphy PharmD Unavailable [phone] Reason for Visit * Reason Onset Date Comments Med Refill 12/18/2024 Encounter Details Date Type Department Care Team (Late st Contact Info) Description 12/18/2024 Refill [facility] MED & PEDS [address] [place] [address] Linda Murphy DO [address] [facility] [place] [address] Acute post-traumatic headache, not intractable; Chronic obstructive [...] Description 02/26/2025 11:45 AM EDT Office Visit [facility] MED[facility]INE 230 [place] [address] Linda Murphy DO 230 [place] [address] documented as of this encounter Goals Goal [...] of this encounter Care Teams Customer Service Dispatcher Relationship Specialty Start Date End Date Linda Murphy DO [address] [place] [address] [phone] PCP - General Family Medicine 11/24/12 Antionette Murphy PharmD [address] [place] [address] Pharmacist Internal Medicine 07/15/24 documented as of this encounter
== END 2025-02-17 10:09 | disposition home or self-care (01) ==
LOC: HO.LAB 10:08
PROVIDERS: PCP Family Medicine; Visit Provider Physician Assistant Surgical
DX: Z13.89 Encounter for screening for other disorder (principal)
CPT/HCPCS: 36415; 85025

== ENCOUNTER 2025-02-17 16:02 | Emergency (ER) | payer OTHER, SELFPAY ==
--- NOTE | ~2025-02-17 | XR_ITS ---
CLINICAL HISTORY: Leukocytosis and lactic acidosis, evaluate for PNA 2 view chest x-ray Comparison: Chest x-ray from 02/15/2025 Findings: Mild increase in small left pleural effusion with underlying left basilar atelectasis/consolidation. Subcutaneous gas is present involving left chest wall. No pneumothorax accounting for subcutaneous gas. Imaged mediastinum is unchanged. No osseous change in the [id number]. IMPRESSION: 1. Small left pleural effusion. 2. Underlying left basilar atelectasis/consolidation. Recommend attention on follow-up to ensure resolution. This document has been electronically signed by: Vasyl Teague MD on 02/17/2025 20:30:00
[2025-02-17 16:18] VITALS: BP 104/56; PULSE 98; RESP 18; TEMP 36.9; O2SAT 98; BMI 31.8
[2025-02-17 17:27] LABS: MANUAL DIFF FLAG NO
[2025-02-17 17:28] LABS: Basophils Absolute Auto 0.1 X10*3/uL (0.0-0.2); Basophils Percent Auto 0.4 % (0-2); Eosinophils Absolute Auto 0.7 X10*3/uL (0.0-0.4); Eosinophils Percent Auto 3.6 % (0-4); Hematocrit 26.2 % (37.0-47.0); Hemoglobin 8.7 g/dl (12.0-16.0); Imm Gran Abs Auto 0.72 X10*3/uL (0.00-0.03); Imm Gran Pct Auto 3.6 % (0.0-0.4); Lymphocytes Absolute Auto 3.6 X10*3/uL (1.2-4.9); Lymphocytes Percent Auto 17.8 % (20-40); Mean Corpuscular HGB Conc 33.2 g/dl (31.0-35.0); Mean Corpuscular Volume 87.3 fL (80.0-98.0); Mean Platelet Volume 9.3 fL (9.4-12.3); Monocytes Absolute Auto 1.4 X10*3/uL (0.1-1.2); Monocytes Percent Auto 6.9 % (2-11); NRBC Pct Auto 0.3 /100WBC (0.0-0.2); Neutrophils Absolute Auto 13.6 x10*3/uL (2.0-8.3); Neutrophils Percent Auto 67.7 % (45-73); Platelet Count 423 X10*3/uL (160-400)
[2025-02-17 17:44] LABS: Alanine Aminotransferase 27 U/L (0-31); Albumin Level 3.7 g/dL (3.5-5.0); Alkaline Phosphatase 96 U/L (39-117); Anion Gap 11 (12-20); Aspartate Amino Transferase 31 U/L (5-31); Bilirubin Total 0.3 mg/dL (0.0-1.0); Blood Urea Nitrogen 8 mg/dL (9-16); Calcium 9.1 mg/dL (8.4-10.2); Carbon Dioxide 28 mmol/L (22-29); Chloride 104 mmol/L (96-108); Creatinine Clr Calc Pharmacy 89.8; Estimated Glomerular Filt Rate > 60; Glucose Random 182 mg/dL (60-115); Potassium 3.8 mmol/L (3.3-5.1); Sodium 139 mmol/L (135-145); Total Protein 6.6 g/dL (6.5-8.0)
[2025-02-17 17:49] LABS: Lactic Acid 2.4 mmol/L (0.5-2.0)
--- OUTSIDE RECORDS SUMMARY | 2025-02-17 18:00 | XMS_ITS | Encounter Summary ---
Author Organization [employer] Address [address] [facility] [address] 7t [place] [address] Care Team Providers Care Glass Processing Worker Name Role Phone Linda Murphy DO Primary Care Provider DelNeri zavala PharmD Unavailable Unavail able Antionette Murphy PharmD Unavailable Reason for Visit * Reason Onset Date Comments Letter for School/Work 03/07/2023 Encounter Details Date Type Department Care Team ([facility] st Contact Info) Description 03/07/2023 Telephone [facility] MEDICINE 230 [place] [address] Linda Murphy DO 230 [place] [address] Letter for School/Work Social History Tobacco Use [...] mailed due to COVID Please contact at [phone] documented in this encounter Plan of Treatment Upcoming Encounters Date Type Department Care Team (Late st Contact Info) Description 02/26/2025 11:45 AM EDT Office Visit [facility] MEDICINE 230 [place] [address] Linda Murphy DO 230 [place] [address] documented as of this encounter Goals Goal [...] documented as of this encounter Care Teams Glass Processing Worker Relationship Specialty Start Date End Date Linda Murphy DO 230 [place] [address] PCP - General Family Medicine 11/24/12 Neri Yang, PharmD [address] [place] [address] Pharmacist Internal Medicine 11/23/22 10/17/23 Antionette Murphy PharmD [address] [place] [address] Pharmacist Internal Medicine 07/15/24 documented as of this encounter
--- OUTSIDE RECORDS SUMMARY | 2025-02-17 18:00 | XMS_ITS | Encounter Summary ---
Author Organization [employer] Address 75 [facility] 7t [place] [address] Care Team Providers Care Heat Pump Installer Name Role Phone Linda Murphy DO Primary Care Provider [phone] Dellogono Neri PharmD Unavailable Unavail able Antionette Murphy PharmD Unavailable Reason for Visit * Reason Comments Med Refill Encounter Details Date Type Department Care Team (Late Contact Info) Description 04/10/2023 Refill [facility] MED & PEDS [address] [place] [address] Linda Murphy DO 230 [place] [address] Social History Tobacco Use Types Packs/Day Years [...] Description 02/26/2025 11:45 AM EDT Office Visit [facility] MEDICINE 230 [place] [address] Linda Murphy DO 230 [place] [address] documented as of this encounter Goals Goal [...] documented as of this encounter Care Teams Heat Pump Installer Relationship Specialty Start Date End Date [place] [address] PCP - General Family Medicine 11/24/12 Neri Yang, PharmD [address] [place] [address] Pharmacist Internal Medicine 11/23/22 10/17/23 Antionette Murphy, EricD [address] [place] [address] Pharmacist Internal Medicine 07/15/24 documented as of this encounter
--- OUTSIDE RECORDS SUMMARY | 2025-02-17 18:00 | XMS_ITS | Encounter Summary ---
Author Organization [employer] Address 75 [facility] 7t [place] [address] Care Team Providers Care Bulk Plant Supervisor Name Role Phone Linda Murphy DO Primary Care Provider [phone] Antionette Murphy PharmD Unavailable [phone] Reason for Visit * Reason Comments Med Refill Encounter Details Date Type Department Care Team ([facility] st Contact Info) Description 07/03/2024 Refill [facility] MEDICINE 230 [place] [address] Linda Murphy DO 230 [place] [address] Tobacco dependence Social History Tobacco Use Types [...] Description 02/26/2025 11:45 AM EDT Office Visit [facility] MEDICINE [address] [place] [address] Linda Murphy DO [address] [place] [address] documented as of this encounter Goals Goal [...] documented as of this encounter Care Teams Bulk Plant Supervisor Relationship Specialty Start Date End Date Linda Murphy DO [address] [place] [address] PCP - General Family Medicine 11/24/12 Antionette Murphy PharmD [address] [place] [address] Pharmacist Internal Medicine 07/15/24 documented as of this encounter
--- OUTSIDE RECORDS SUMMARY | 2025-02-17 18:00 | XMS_ITS | Encounter Summary ---
Author Organization [employer] Address [address] [facility] [address] 7t [place] [address] Care Team Providers Care Top Stop Attacher Name Role Phone Linda Murphy DO Primary Care Provider [phone] Antionette Murphy PharmD Unavailable [phone] Reason for Visit * Reason Onset Date Comments Medication Question 11/13/2023 Encounter Details Date Type Department Care Team ([facility] st Contact Info) Description 11/13/2023 Telephone [facility] 230 [place] [address] Linda Murphy DO 230 [place] [address] Medication Question Social History Tobacco Use Types [...] 11/08 Physical appointment. Please contact pt at [phone] documented in this encounter Plan of Treatment Upcoming Encounters Date Type Department Care Team (Late st Contact Info) Description 02/26/2025 11:45 AM EDT Office Visit [facility] [address] [place] [address] Linda Murphy DO 230 [place] [address] documented as of this encounter Goals Goal [...] documented as of this encounter Care Teams Top Stop Attacher Relationship Specialty Start Date End Date Linda Murphy DO [address] [place] [address] PCP - General Family Medicine 11/24/12 Antionette Murphy, Kaiden [address] [place] [address] Pharmacist Internal Medicine 07/15/24 documented as of this encounter
--- OUTSIDE RECORDS SUMMARY | 2025-02-17 18:00 | XMS_ITS | Encounter Summary ---
Author Organization [employer] Address 75 [facility] 7t [place] [address] Care Team Providers Care Water Softener Servicer Name Role Phone Linda Murphy DO Primary Care Provider [phone] Neri Yang PharmD Unavailable Unavail able Antionette Murphy PharmD Unavailable Reason for Visit * Reason Onset Date Comments Results 10/08/2023 Encounter Details Date Type Department Care Team ([facility] st Contact Info) Description 10/08/2023 Telephone [facility] MEDICINE 230 [place] [address] Linda Murphy DO 230 [place], [place] [phone] Results Social History Tobacco Use Types Packs/Day [...] yesterday 10/07/2023 but was transferred to the [facility]. documented in this encounter Plan of Treatment Upcoming Encounters Date Type Department Care Team (Late st Contact Info) Description 02/26/2025 11:45 AM EDT Office Visit [facility] MEDICINE [address] [place] [address] Linda Murphy DO 230 [place] [address] documented as of this encounter Goals Goal [...] documented as of this encounter Care Teams Water Softener Servicer Relationship Specialty Start Date End Date Linda Murphy DO 230 [place] [address] PCP - General Family Medicine 11/24/12 Neri Yang, PharmD 230 [place] [address] Pharmacist Internal Medicine 11/23/22 10/17/23 Antionette Murphy, EricD 230 [place] [address] Pharmacist Internal Medicine 07/15/24 documented as of this encounter
--- OUTSIDE RECORDS SUMMARY | 2025-02-17 18:00 | XMS_ITS | Clinical Summary ---
Author Organization [facility] Address [address] [place] [address] Phone Care Team Providers Care Construction Or Leak Gang Laborer Name Role Phone Lvelian Linda Juanito RAMESH Primary Care Provider [phone] Allergies No known active allergies Medications acetaminophen [...] 1:45 PM EST Office Visit [facility] [address] [phone] Gutierrez Ruiz DPM Controlled type 2 diabetes [...] 9:15 AM EDT Office Visit [facility] [address] [phone] Gutierrez Ruiz DPM [address] [address] Health Maintenance Due Date Last Done Comments [...] patient's age to complete this topic Insurance [facility] Member Subscriber Plan / Payer (Ef fective 2013-Present) Name:Tisha Ruiz Relation to Subscriber:Self Name:Tisha Ruiz Payer ID:[id number] Group ID:[id number] Type:Not on file Address: [place] [address] [address] [id number] Care Teams Construction Or Leak Gang Laborer Relationship Specialty Start Date End Date Linda Murphy DO [address] [place] [address] PCP - General Internal Medicine 04/09/19
--- OUTSIDE RECORDS SUMMARY | 2025-02-17 18:00 | XMS_ITS | Encounter Summary ---
Author Organization [facility] Address 75 [facility] 7t [place] [address] Care Team Providers Care Lead Die Molder Name Role Phone Linda Murphy DO Primary Care Provider Dellogono Neri PharmD Unavailable Unavail able Antionette Murphy PharmD Unavailable Reason for Visit * Reason Comments Med Refill Encounter Details Date Type Department Care Team (Late st Contact Info) Description 04/05/2023 Refill [facility] 230 [place] [address] Linda Murphy DO 230 [place] [address] Social History Tobacco Use Types Packs/Day Years [...] Description 02/26/2025 11:45 AM EDT Office Visit [facility] MEDICINE 230 [place] [address] Linda Murphy DO 230 [place] [address] documented as of this encounter Goals Goal [...] as of this encounter Care Teams Lead Die Molder Relationship Specialty Start Date End Date Linda Murphy DO [address] [place] [address] PCP - General Family Medicine 11/24/12 Neri Yang, PharmD [address] [place] [address] Pharmacist Internal Medicine 11/23/22 10/17/23 Antionette Murphy PharmD [address] [place] [address] Pharmacist Internal Medicine 07/15/24 documented as of this encounter
--- OUTSIDE RECORDS SUMMARY | 2025-02-17 18:00 | XMS_ITS | Encounter Summary ---
Author Organization [employer] Address [address] [place] [address] 7t [place] [address] Care Team Providers Care Weblogic Administrator Name Role Phone Linda Murphy DO Primary Care Provider [phone] DelNeri zavala PharmD Unavailable Unavail able Antionette Murphy PharmD Unavailable Reason for Referral * Imaging (Routine) - Canceled Specialty Diagnoses / Procedures Referred By Rolf pascual Referred To Contact Radiology Diagnoses Hilar mass Procedures CT Chest w/o Contrast Nora Astudillo FNP [address] [place] [address] Phone: tel: fax: [address] Phone: tel: fax: Referral ID Status Reason Start Date Expiration Date V isits Requested Visits Authorized [id number] Canceled 10/11/2023 10/10/2024 1 1 Encounter Details Date Type Department Care Team (Late st Contact Info) Description 10/11/2023 Orders Only [facility] MED & PEDS [address] [place] [address] Nora Astudillo FNP [address] [place] [address] Hilar mass (Primary Dx) Social History Tobacco [...] Office Visit [facility] MEDICINE [address] [place] [address] Linda Murphy DO [address] [place] [address] Scheduled Orders Name Type Priority Associated Diagnoses [...] documented as of this encounter Care Teams Weblogic Administrator Relationship Specialty Start Date End Date Linda Murphy DO [address] [place] [address] PCP - General Family Medicine 11/24/12 Neri Yang, PharmD [address] [place] [address] Pharmacist Internal Medicine 11/23/22 10/17/23 Antionette Murphy PharmD [address] [place] [address] Pharmacist Internal Medicine 07/15/24 documented as of this encounter
--- OUTSIDE RECORDS SUMMARY | 2025-02-17 18:01 | XMS_ITS | Encounter Summary ---
Author Organization [employer] Address [address] [facility] [address] 7t [place] [address] Care Team Providers Care Solid Propellant Processor Name Role Phone Linda Murphy DO Primary Care Provider [phone] Antionette Murphy PharmD Unavailable [phone] Reason for Visit * Reason Onset Date Comments Med Refill 12/18/2024 Encounter Details Date Type Department Care Team (Late st Contact Info) Description 12/18/2024 Refill [facility] MED & PEDS [address] [place] [address] Linda Murphy DO 230 [facility] [address] Acute post-traumatic headache, not intractable; Chronic obstructive [...] Description 02/26/2025 11:45 AM EDT Office Visit [facility] MEDICINE 230 [place] [address] Linda Murphy DO 230 [place] [address] documented as of this encounter Goals Goal [...] documented as of this encounter Care Teams Solid Propellant Processor Relationship Specialty Start Date End Date Linda Murphy DO [address] [place] [address] [phone] PCP - General Family Medicine 11/24/12 Antionette Murphy PharmD [address] [place] [address] Pharmacist Internal Medicine 07/15/24 documented as of this encounter
--- OUTSIDE RECORDS SUMMARY | 2025-02-17 18:01 | XMS_ITS | Encounter Summary ---
Author Organization [employer] Address 75 [facility] 7t [place] [address] Care Team Providers Care Senior Occupational Therapist Name Role Phone Linda Murphy DO Primary Care Provider [phone] DelNeri zavala PharmD Unavailable Unavail able Antionette Murphy PharmD Unavailable Reason for Visit * Reason Onset Date Comments letter michael lopez 07/26/2023 Encounter Details Date Type Department Care Team (Late st Contact Info) Description 07/26/2023 Telephone [facility] MEDICINE [address] [place] [address] Linda Murphy DO [address] [place] [address] letter michael lopez Social History Tobacco Use [...] to Medical side. Please contact pt at [phone] documented in this encounter Plan of Treatment Upcoming Encounters Date Type Department Care Team (Late st Contact Info) Description 02/26/2025 11:45 AM EDT Office Visit [facility] MEDICINE [address] [place] [address] Linda Murphy DO [address] [place] [address] documented as of this encounter Goals Goal [...] as of this encounter Care Teams Senior Occupational Therapist Relationship Specialty Start Date End Date Linda Murphy DO [address] [place] [address] PCP - General Family Medicine 11/24/12 Neri Yang, PharmD [address] [place] [address] Pharmacist Internal Medicine 11/23/22 10/17/23 Antionette Murphy PharmD [address] [place] [address] Pharmacist Internal Medicine 07/15/24 documented as of this encounter
--- OUTSIDE RECORDS SUMMARY | 2025-02-17 18:01 | XMS_ITS | Encounter Summary ---
Author Organization [employer] Address 75 [facility] 7t [place] [address] Care Team Providers Care Combat Control Manager Name Role Phone Linda Murphy DO Primary Care Provider [phone] Antionette Murphy PharmD Unavailable [phone] Reason for Visit * Reason Onset Date Comments Med Refill 12/18/2024 Encounter Details Date Type Department Care Team (Late st Contact Info) Description 12/18/2024 Refill [facility] MEDICINE 230 [place] [address] Linda Murphy DO [address] [place] [address] Social History Tobacco Use Types Packs/Day Years [...] Description 02/26/2025 11:45 AM EDT Office Visit [facility] MEDICINE [address] [place] [address] Linda Murphy DO [address] [place] [address] documented as of this encounter Goals Goal [...] documented as of this encounter Care Teams Combat Control Manager Relationship Specialty Start Date End Date Linda Murphy DO [address] [place] [address] PCP - General Family Medicine 11/24/12 Antionette Murphy PharmD [address] [place] [address] Pharmacist Internal Medicine 07/15/24 documented as of this encounter
--- OUTSIDE RECORDS SUMMARY | 2025-02-17 18:01 | XMS_ITS | Encounter Summary ---
Author Organization [employer] Address [address] [facility] [address]t [place] [address] Care Team Providers Care Procurement Intern Name Role Phone Linda Murphy DO Primary Care Provider Dellogla Neri PharmD Unavailable Unavail able Antionette Murphy PharmD Unavailable Reason for Visit * Reason Onset Date Comments triage 11/14/2022 Encounter Details Date Type Department Care Team (Late st Contact Info) Description 11/14/2022 Telephone [facility] MEDICINE 230 [place] [address] Linda Murphy DO [address] [place], [place] [phone] triage Social History Tobacco Use Types Packs/Day [...] EST Triage call Pt reports seen in [facility] today. Pt reports bruising on bilateral [...] Description 02/26/2025 11:45 AM EDT Office Visit [facility] MEDICINE 230 [place] [address] Linda Murphy DO [address] [place] [address] documented as of this encounter Visit Diagnoses Not on filedocumented in this encounter Care Teams Procurement Intern Relationship Specialty Start Date End Date Linad Murphy DO [address] [place] [address] PCP - General Family Medicine 11/24/12 Neri Yang PharmD [address] [place] [address] Pharmacist Internal Medicine 11/23/22 10/17/23 Antionette Murphy PharmD [address] [place] [address] [place] [address] Pharmacist Internal Medicine 07/15/24 documented as of this encounter
--- OUTSIDE RECORDS SUMMARY | 2025-02-17 18:01 | XMS_ITS | Encounter Summary ---
Author Organization [employer] [facility] Address 75 [facility] 7t [place] [address] Care Team Providers Care Vp Cardiovascular Name Role Phone Linda Murphy DO Primary Care Provider Dellogla Neri PharmD Unavailable Unavail able Antionette Murphy PharmD Unavailable [phone] Reason for Visit * Reason Comments Med Refill Encounter Details Date Type Department Care Team (Late Contact Info) Description 07/08/2023 Refill [facility] MEDICINE [address] [place] [address] Linda Murphy DO 230 [place] [address] Pain Social History Tobacco Use Types Packs/Day [...] Description 02/26/2025 11:45 AM EDT Office Visit [facility] MEDICINE [address] [place] [address] Linda Murphy DO [address] [place] [address] documented as of this encounter Goals Goal [...] documented as of this encounter Care Teams Vp Cardiovascular Relationship Specialty Start Date End Date Linda Murphy DO [address] [place] [address] PCP - General Family Medicine 11/24/12 Neri Yang, PharmD [address] [place] [address] Pharmacist Internal Medicine 11/23/22 10/17/23 Antionette Murphy PharmD [address] [place] [address] Pharmacist Internal Medicine 07/15/24 documented as of this encounter
--- OUTSIDE RECORDS SUMMARY | 2025-02-17 18:01 | XMS_ITS | Encounter Summary ---
Author Organization [employer] Address [address] [place] [address] Care Team Providers Care Side Laster Tack Name Role Phone Linda Murphy DO Primary Care Provider [phone] Antionette Murphy PharmD Unavailable [phone] Reason for Visit * Reason Comments Med Refill Encounter Details Date Type Department Care Team (Late st Contact Info) Description 02/11/2025 Refill [facility] [address] [place] [address] Linda Murphy DO [address] [place] [address] Chronic low back pain, unspecified back pain [...] 02/26/2025 11:45 AM EDT Office Visit [facility] MEDICINE [address] [place] [phone] Linda Murphy DO [address] [place] [phone] documented as of this encounter Goals Goal Patient Goal Type Associated Problems Recent Progress Patient-Stated? Author Hemoglobin A1c < 7 Result Component 7.7(01/27/2025 11:54 AM EDT) No Nrei Yang, PharmD documented as of this encounter Visit Diagnoses Diagnosis Chronic low back pain, unspecified back pain laterality, unspecified whether sciatica present documented in this encounter Additional Health Concerns Assessment Noted Time PHQ-9 Depression Total Score: 0 01/20/20 25 12:15 PM EDT documented as of this encounter Care Teams Side Laster Tack Relationship Specialty Start Date End Date Linda Murphy DO [address] [place] [phone] PCP - General Family Medicine 11/24/12 Antionette Murphy, Kaiden [address] [place] [phone] Pharmacist Internal Medicine 07/15/24 documented as of this encounter
--- OUTSIDE RECORDS SUMMARY | 2025-02-17 18:01 | XMS_ITS | Encounter Summary ---
Author Organization [employer] Address [address] [facility] [address] [place] [address] Care Team Providers Care Family Medicine Resident Name Role Phone Linda Murphy DO Primary Care Provider [phone] Antionette Murphy PharmD Unavailable [phone] Reason for Visit * Reason Comments Med Refill Encounter Details Date Type Department Care Team ([facility] st Contact Info) Description 11/24/2023 Refill [facility] MEDICINE [address] [place] [address] Linda Murphy DO [address] [place] [address] Social History Tobacco Use Types Packs/Day Years [...] 11:45 AM EDT Office Visit [facility] MEDICINE [address] [place] [phone] Linda Murphy DO [address] [place] [phone] documented as of this encounter Goals Goal [...] documented as of this encounter Care Teams Family Medicine Resident Relationship Specialty Start Date End Date Linda Murphy DO [address] [place] [phone] PCP - General Family Medicine 11/24/12 Antionette Murphy PharmD [address] [place] [phone] Pharmacist Internal Medicine 07/15/24 documented as of this encounter
--- OUTSIDE RECORDS SUMMARY | 2025-02-17 18:01 | XMS_ITS | Clinical Summary ---
Author Organization [employer] Address [address] [place] [address] 7[address] [place] [address] Care Team Providers Care Draw Hand Name Role Phone Katherine Linda RAMESH Primary Care Provider PuAntionette ellison PharmD Unavailable [phone] Allergies Active Allergy Reactions Criticality Noted [...] 05/15/20 24 Active Blood Glucose Monitoring Suppl (Genisphere IncStyle Lite) deviceIndicatio ns:Type 2 diabetes mellitus without [...] complication, without long-term current use of insulin ([facility]) USE EVERY DAY UP TO TWICE DAILY 100 each 08/12/20 24 Active glucose blood (FREESTYLE LITE) test stripIndication s:Type 2 diabetes mellitus without complication, without long-term current use of insulin ([facility]) Use to check blood sugar up to twice daily 100 each 08/12/20 24 Active TRUEplus Lancets 33G miscIndications :Type 2 diabetes mellitus without complication, without long-term current use of insulin ([facility]) Use to check blood sugar up to twice daily 100 each 08/12/20 24 Active semaglutide (Rybelsus) 7 MG tablet TAKE 1 TABLET EVERY MORNING, 30 MINUTES BEFORE A MEAL ICD10= 30 tablet 5 08/26/20 24 Active Aspirin Low Dose 81 MG EC tabletIndicatio ns:Type 2 diabetes mellitus with other specified complication, unspecified whether termite control technician insulin use ([facility]) TAKE 1 TABLET BY MOUTH EVERY EVENING 90 tablet 1 09/02/20 24 Active metFORMIN XR (Glucophage-XR) 500 MG 24 hr tabletIndicatio ns:Type 2 diabetes mellitus without complication, without long-term current use of insulin ([facility]) TAKE 2 TABLETS BY MOUTH TWICE [...] -f/u with pain mgmt prn -advised contact [facility] if sx change or [...] regular BS monitoring -re-referred to [facility] pharmacist for eval -cont statin and low-dose [...] instrumentation of the toenail - refer to crime lab technician - TB UTD Plantar callus 08/26/2024 01/27/2025 [...] Encounters Date Type Department Care Team Description 02/17/2025 Orders Only GENERIC EXTERNAL DATA DEPARTMENT Provider, Generic External Data 02/11/2025 Refill [facility] [address] [place] [address] Linda Murphy DO Chronic low back pain, unspecified back pain laterality, unspecified whether sciatica present 02/11/2025 Orders Only GENERIC EXTERNAL DATA DEPARTMENT Provider, Generic External Data 02/08/[address] [address] Linda Murphy DO Pre-op 02/01/2025 Orders Only GENERIC EXTERNAL DATA DEPARTMENT Provider, Generic External Data 01/28/2025 Refill [facility] [address] [place] [phone] Linda Murphy DO 01/27/2025 11:15 AM EDT Office Visit [facility] MEDICINE [address] [place] [phone] Linda Murphy DO Pre-op examination (Primary Dx); Type 2 diabetes mellitus without complication, without long-term current use of insulin ([facility]); Encounter for screening mammogram for malignant neoplasm of breast; Encounter for screening for malignant neoplasm of colon 01/27/2025 Travel 01/19/2025 11:45 AM EDT Telemedicine [address] [address] Linda Murphy DO Chest congestion (Primary Dx); Preop examination 01/19/2025 Telephone [facility] MEDIC[facility] [address] [place] [address] Linda Murphy, 01/19/2025 Travel 01/18/2025 Refill [facility] PEDS [address] [place] [address] Linda Murphy DO Chronic low back pain, unspecified back pain laterality, unspecified whether sciatica present 01/12/2025 Telephone [facility] [address] [place] [address] No Lopez, RN NCNS CHIEF UNDERWRITER RV today 01/07/2025 Telephone [facility] [address] [place] [phone] No Lopez, KRYSTYNA NCNS for CHIEF UNDERWRITER RV today 01/07/2025 Telephone [facility] [address] [place] [address] No Lopez, KRYSTYNA Recommend CHIEF UNDERWRITER Tier 2 01/05/2025 Orders Only GENERIC EXTERNAL DATA DEPARTMENT Provider, Generic External Data 12/23/2024 Refill [facility] [address] [place] [address] Linda Murphy DO Chronic GERD 12/21/2024 Refill [facility] [address] [place] [address] Linda Murphy DO Chronic low back pain, unspecified back pain laterality, unspecified whether sciatica present 12/18/2024 Refill [facility] [address] [place] [address] Linda Murphy DO 12/18/2024 Refill [facility] [address] [place] [address] Linda Murphy DO Acute post-traumatic headache, not intractable; Chronic obstructive pulmonary disease, unspecified COPD type ([facility]) 12/18/2024 Refill [facility] [address] [place] [address] Linda Murphy DO Type 2 diabetes mellitus without complication, without long-term current use of insulin ([facility]); Type 2 diabetes mellitus with other specified complication, unspecified whether termite control technician insulin use ([facility]); Chronic obstructive pulmonary disease, unspecified COPD type ([facility]) 12/15/2024 Orders Only GENERIC EXTERNAL DATA DEPARTMENT Provider, Generic External Data 12/07/2024 Telephone [facility] MEDIC[facility] [address] [place] [address] Linda Murphy DO 12/06/2024 Orders Only GENERIC EXTERNAL DATA DEPARTMENT Provider, Generic External Data 12/01/2024 Refill [facility] [address] [place] [address] Linda Murphy, Acute post-traumatic headache, not intractable; Chronic obstructive pulmonary disease, unspecified COPD type ([facility]) 11/25/2024 Orders Only [facility] External Provider, [facility] from Last 3 Months Immunizations Name Administration [...] Description 02/26/2025 11:45 AM EDT Office Visit [facility] MEDIC[facility] [address] [place], [place] [phone] Linda Murphy DO [address] [place] [address] Health Maintenance Due Date Last Done Comments [...] Result Component 7.7(01/27/2025 11:54 AM EDT) No Dellucas, Neri, Kaiden Procedures Procedure Name Priority Date/Time Associated Diagnosis Comments CBC WITH AUTO DIFFERENTIAL Routine 02/17/2025 10:20 AM EDT XR CHEST 1 VIEW Routine 02/15/2025 10:10 [...] complication, without long-term current use of insulin ([facility]) POCT GLUCOSE Routine 01/27/2025 11:54 AM EDT Pre-op examination Type 2 diabetes mellitus without complication, without long-term current use of insulin ([facility]) XR CHEST 2 VIEWS STAT 01/20/2025 [...] Relevant to Health Maintenance Results * (ABNORMAL) CBC auto differential (02/17/2025 10:20 AM EDT) Only the most recent of3 resultswithin the time period is included. White Blood Count 18.0(H) 4.8 - 10.8 X10*3/uL [facility] Red Blood Count 3.07(L) 4.20 - 5.50 X10*6/uL [facility] Hemoglobin 8.8(L) 12.0 - 16.0 g/dl [facility] Hematocrit 27.3(L) 37.0 - 47.0 % [facility] Mean Corpuscular Volume 88.9 80.0 - 98.0 fL [facility] Mean Corpuscular Hemoglobin 28.7 27.0 - 33.0 pg [facility] Mean Corpuscular HGB Conc 32.2 31.0 - 35.0 g/dl [facility] Red Cell Distribution Width 15.1 11.0 - 16.0 % [facility] Platelet Count 435(H) 160 - 400 X10*3/uL [facility] Mean Platelet Volume 9.6 9.4 - 12.3 fL [facility] Neutrophils Percent Auto 68.0 45 - 73 % [facility] Imm Gran Pct Auto 3.6(H) 0.0 - 0.4 % [facility] Lymphocytes Percent Auto 16.9(L) 20 - 40 % [facility] Monocytes Percent Auto 7.5 2 - 11 % [facility] Eosinophils Percent Auto 3.7 0 - 4 % [facility] Basophils Percent Auto 0.3 0 - 2 % [facility] NRBC Pct Auto 0.2 0.0 - 0.2 /100WBC [facility] Neutrophils Absolute Auto 12.2(H) 2.0 - 8.3 x10*3/uL [facility] Imm Gran Abs Auto 0.65(H) 0.00 - 0.03 X10*3/uL [facility] Lymphocytes Absolute Auto 3.1 1.2 - 4.9 X10*3/uL [facility] Monocytes Absolute Auto 1.4(H) 0.1 - 1.2 X10*3/uL [facility] Eosinophils Absolute Auto 0.7(H) 0.0 - 0.4 X10*3/uL [facility] Basophils Absolute Auto 0.1 0.0 - 0.2 X10*3/uL [facility] NRBC Abs Auto 0.030(H) 0.0 - 0.012 X10*3/uL [facility] 02/17/2025 10:2 0 AM EDT 02/17/2025 10:20 AM EDT us Generic External Data Provider LAB BLOOD ORDERAB LES Final Result [facility] [address] [place] [address] [phone] * XR Chest 1 View (02/15/2025 10:10 AM EDT) Only the most recent of8 resultswithin the time period is included. Anatomical Region Laterality Modality Chest Radiographic Rosaura ging 02/15/2025 10:1 0 AM EDT Narrative 02/15/2025 10:47 AM EDT ? [facility] ?[address] ?[place] [address] ?XRay Report ? Signed ? Patient: Tisha Ruiz ?MR#: [id number] ?? 61 ? : 1970 ?Acct:[id number] ? Age/Sex: 54 / F ?ADM Date: 02/11/25 ? Loc: HO.IMC ?478-1 ? Attending Dr: Mario Hoyt MD ? Ordering Physician: Rose Michelle PA-C ?? Date of Service: 02/15/25 ?? Procedure(s): XR chest 1V ?? Accession Number(s): [id number] ? cc: Linda Murphy DO; Rose Michelle [...] DD/ 1010 ? TD/TT: 02/15/25 1034 ? Concrete Pump Operator Helper: ? Procedure Note Elena Roth - 02/15/[address] [address] XRay Report Signed Patient: Ayanna RuiznMR#: [id number] 61 : 1970Acct:[id number] Age/Sex: 54 / FADM Date: 02/11/25 Loc: [facility] 478-[address]: Mario Hoyt MD Ordering Physician: Rose Michelle PA-C Date of Service: 02/15/25 Procedure(s): XR chest 1V Accession Number(s): [id number] cc: Linda Murphy DO; Rose Michelle PA-C [...] 02/15/25 1043 DD/ 1010 TD/TT: 02/15/25 1034 Concrete Pump Operator Helper: [facility] External Provider IMG XR PROCEDURES Final Result * (ABNORMAL) Glucose, Whole Blood (02/11/2025 6:35 AM EDT) Only the most recent of4 resultswithin the time period is included. Glucose, Whole Blood 152(H) 60 - 115 mg/dL [facility] Comment:METER #: [id number] 02/11/2025 6:35 AM EDT 02/11/2025 6:39 AM EDT Generic External Data Provider LAB BLOOD ORDERAB LES Final Result [facility] [address] [place] [phone] * Type and screen (02/01/2025 11:11 AM EDT) Blood Type ON [facility] Antibody Screen NEGATIVE [facility] 02/01/2025 11:1 1 AM EDT 02/01/2025 11:28 AM EDT Narrative [facility] - 02/01/2025 12:04 PM EDT Spec expiration changed by SHIRLEY on 02/01/25Reason: PATWITNESSED BY GRIMALKNURSING:Call Blood Bank (ext. [phone]) to band patient on admission.Type and Screen in effect until 2300 on 02/11/25. us Generic External Data Provider LAB BLOOD BANK TE ST ORDERABLES Final Result [facility] [address] [place] [address] [phone] * (ABNORMAL) POCT HGB A1C (01/27/2025 11:54 AM EDT) Hemoglobin A1C 7.7(A) 4.0 - 6.0 % QC Media Lot # [id number] Lot# Expiration Date 10,,056 Blood 01/27/2025 11:5 4 AM EDT Linda Katherine DO POINT OF CARE TEST ENTER/JAME T ORDERABLES Final Result * POCT Glucose (01/27/2025 11:54 AM EDT) Glucose Blood, POC 154 60 - 200 mg/dL QC Media Lot # [id number] Lot# Expiration Date [id number] Blood Capillary blood specimen / Unknown 01/27/2025 11:54 AM EDT Linda Katherine DO POINT OF CARE TEST ENTER/JAME T ORDERABLES Final Result * XR Chest 2 Views (01/20/2025 11:30 AM EDT) Anatomical Region Laterality Modality Chest Radiographic Rosaura ging 01/20/2025 11:3 0 AM EDT Narrative 01/20/2025 11:50 AM EDT ? [facility] ?[address] ?[place] [address] ?XRay Report ? Signed ? Patient: Sara,Tisha ?MR#: [id number] ?? 61 ? : 1970 ?Acct:[id number] ? Age/Sex: 54 / F ?ADM Date: 03/12/25 ? Loc: HO.XRAY ? Attending Dr: Geneva Candelario MD ? Ordering Physician: Linda Murphy DO ?? Date of Service: 01/20/25 ?? Procedure(s): XR chest 2V ?? Accession Number(s): [id number] ? cc: Linda Murphy DO ? EXAMINATION: [...] DD/ 1130 ? TD/TT: 01/20/25 1140 ? Concrete Pump Operator Helper: ? Procedure Note Gonzalez, Elena - 01/20/2025 [place] [address] XRay Report Signed Patient: Ayanna RuiznMR#: [id number] 61 : 1970Acct:[id number] Age/Sex: 54 / FADM Date: 01/20/25 Loc: [facility] Attending Dr: Geneva Candelario MD Ordering Physician: Linda Murphy DO Date of Service: 01/20/25 Procedure(s): XR chest 2V Accession Number(s): [id number] cc: Linda Murphy DO EXAMINATION: XR CHEST [...] 01/20/25 1148 DD/ 1130 TD/TT: 01/20/25 1140 Concrete Pump Operator Helper: us Linda Murphy DO IMG XR PROCEDURES Final Resu lt * (ABNORMAL) Partial Thromboplastin Time, Activated (APTT) (01/20/2025 11:26 AM EDT) Only the most recent of2 resultswithin the time period is included. Partial Thromboplastin Time 44.2(H) 26.0 - 36.8 SEC [facility] Comment:For information rega rding the monitoring of direct thrombininhibitors, please refer to Pharmacy. Blood Venous blood specimen / Unknown 01/20/2025 11:26 AM EDT 01/20/2025 11:26 AM EDT Linda Murphy DO LAB BLOOD ORDERABLES Final R esult [facility] [address] [place] [phone] * (ABNORMAL) Prothrombin Time-INR (01/20/2025 11:26 AM EDT) Only the most recent of2 resultswithin the time period is included. Prothrombin Time 10.1(L) 10.9 - 12.4 SEC [facility] INTERNATIONAL NORM RATIO 0.9 0.9 - 1.1 [facility] Comment:INTERNATIONAL NORMAL IZED RATIO [...] AM EDT 01/20/2025 11:26 AM EDT Linda Garciadillonelian LAB BLOOD ORDERABLES Final R esult Performing Organization Address City/[facility] Co de Phone Number [facility] [address] [place] [phone] * (ABNORMAL) Hemoglobin A1c (01/20/2025 11:26 AM EDT) Hemoglobin A1c 7.8(H) <6.0 % [facility] Comment:Hemoglobin A1C Refer ence Range Adults: 4.8 - 6.0 % Non diabetic: < 6.0 % Goal: < 7.0 %Additional Action Suggested: > 8.0 %Note: Hemoglobin A1c results are invalid for patients with abnormal amounts of HbF. Blood transfusions may impact the HbA1c concentration in the patient sample. Estimated Average Glucose 177 mg/dL [facility] Comment:eAG = Estimated ave rage glucose which is %A1C expressed asaverage glucose, using the formula of the K5H-PmdcvihQvwmala Glucose study (ADAG), Diabetes Care, Vol.31,#8,2007 Blood Venous blood specimen / Unknown 01/20/2025 11:26 AM EDT 01/20/2025 11:26 AM EDT Linda Katherine DO LAB BLOOD ORDERABLES Final R esult Performing Organization Address [facility] Co de Phone Number [facility] [address] [place] [phone] * (ABNORMAL) Basic Metabolic Panel (01/20/2025 11:26 AM EDT) Only the most recent of2 resultswithin the time period is included. Sodium 141 135 - 145 mmol/L [facility] Potassium 4.0 3.3 - 5.1 mmol/L [facility] Chloride 103 96 - 108 mmol/L [facility] Carbon Dioxide 31(H) 22 - 29 mmol/L [facility] Anion Gap 11(L) 12 - 20 [facility] Urea Nitrogen (BUN) 7(L) 9 - 16 mg/dL [facility] Creatinine, Serum 1.07 0.5 - 1.4 mg/dL [facility] Estimated Glomerular Filt Rate 54 [facility] Comment:Chronic Kidney Disea se: Estimated GFR < 60 mL/min/1.26u4Nvqehy Kidney Disease: Estimated GFR < 15 mL/min/1.73m2 Glucose 109 60 - 115 mg/dL [facility] Calcium 9.2 8.4 - 10.2 mg/dL [facility] Blood Venous blood specimen / Unknown 01/20/2025 11:26 AM EDT 01/20/2025 11:26 AM EDT us Linda Murphy DO LAB BLOOD ORDERABLES Final R esult [facility] [address] [place] [phone] * Gross and Microscopic Level 4 (01/05/2025 10:57 AM EST) 01/05/2025 10:5 7 AM EST 01/05/2025 11:19 AM EST Narrative [facility] - 01/26/2025 8:48 AM EDT ----- ------- Name: Tisha Ruiz ? Age/Sex: 54/F ? : 1970 Unit#: [id number] ?? Attend Dr: Mario Hoyt MD ?Re01/05/25 ?Status: DEP SDC ? Location: HO.SSS ?Disch: ? ----- ------- SPEC : [id number] ?RECD: 01/05/25-1119 ? STATUS: ??SOUT ? REQ NUM: [id number] ? HILARY: 01/05/25-1056 ? SUBM DR: Rogelio Sales ? ENTERED: ??01/05/25-1120 ?SP TYPE: Surgical ? OTHR DR: Linda Murphy DO ?Mario Hoyt MD ORDERED: ??Gross Micro L4, IHC, Add. immunos, Napsin, TTF-1, NSCLC Lung bx ? COMMENTS: Block A (xT/xR Solid Tumor) + 3 unst. slides (PD-L1) sent to ?[facility] on 01/08/25. ?Addendum Addendum ??3 ?Entered: 01/26/25-847 [facility] testing: Genomic variants: Biologically Relevant: ? [...] 0848 ? ----- ------- Addendum ??2 ?Entered: 01/21/25 [facility] testing: ? PD-L1 expression (22C3 clone): ?Positive - High Tumor proportion score (TPS): 85% Combined positive score (CPS): 90 ? CONTINUED ON NEXT PAGE ----- ------- Name: Tisha Ruiz ? Age/Sex: 54/F ? : 1970 Unit#: [id number] ?? Attend Dr: Mario Hoyt MD ?Re01/05/25 ?Status: DEP SDC ? Location: HO.SSS ?Disch: ? ----- ------- SPEC : [id number] ?RECD: 01/05/25-1119 ? STATUS: ??SOUT ? REQ NUM: [id number] ? HILARY: 01/05/25-1057 ? SUBM DR: Rogelio [...] Addendum Signed (signature on file) Anuradha Bateman 01/21/25 0914 ? ----- ------- Addendum ??1 ?Entered: 01/07/25-3466 Immunostains show the tumor is positive for [...] ? Age/Sex: 54/F ? : 1970 Unit#: [id number] ?? Attend Dr: Mario Hoyt MD ?Re01/05/25 ?Status: DEP SDC ? Location: HO.SSS ?Disch: ? ----- ------- SPEC : [id number] ?RECD: 01/05/25-1119 ? STATUS: ??SOUT ? REQ NUM: [id number] ? HILARY: 01/05/25-1057 ? SUBM DR: Rogelio [...] Copies To: ?? Linda Murphy DO ?? [facility] ?? [address] ?? [place] [address] ?? [phone] ?? Mario Hoyt MD ?? [facility] ?? [address] ?? [place] [address] ?? [phone] ?? [email or web address] ?? Rogelio Sales ?? [address] ?? [place] [address] ?? [phone] ?? [email or web address] ----- ------- Signed (signature on file) Anuradha [place] 01/06/25 1718 ? ----- ------- ? END OF REPORT ? us Generic External Data Provider LAB CYTOLOGY BEVERLYE CHICHO Final Result [facility] [address] [place] [address] [phone] * CT Biopsy Lung Left (01/05/2025 10:18 AM EST) Anatomical Region Laterality Modality Computed Tomogra phy 01/05/2025 10:1 8 AM EST Narrative 01/06/2025 2:23 PM EST ? [facility] ?[address] ?[place] [address] ? CT Scan Report ? Signed ? Patient: Tisha Ruiz ?MR#: [id number] ?? 61 ? : 1970 ?Acct:[id number] ? Age/Sex: 54 / F ?ADM Date: 01/05/25 ? Loc: HO.SSS ? Attending Dr: Mario Hoyt MD ? Ordering Physician: Mario Hoyt MD ?? Date of Service: 01/05/25 ?? Procedure(s): CT biopsy lung LT ?? Accession Number(s): [id number] ? cc: Linda Murphy DO; Mario Hoyt MD ? Report Number: ?? [id number]: Total DLP = ??490.00 mGy-cm ?? 54-year-old [...] DD/ 1018 ? TD/TT: 01/05/25 1119 ? Concrete Pump Operator Helper: ? Procedure Note Donotuseinterpreter, Image - 01/06/[address] [address] [address] Scan Report Signed Patient: Ayanna RuiznMR#: [id number] 61 : 1970Acct:[id number] Age/Sex: 54 / FADM Date: 01/05/25 [facility] Attending Dr: Mario Hoyt MD Ordering Physician: Mario Hoyt MD Date of Service: 01/05/25 Procedure(s): CT biopsy lung LT Accession Number(s): [id number] cc: Linda Murphy DO; Mario Hoyt MD Report Number: [id number]: Total DLP = 490.00 mGy-cm 54-year-old female [...] in OV> 01/06/25 1420 <Electronically signed by Bhraathi Land MD in OV> 01/06/25 1423 DD/ 1018 TD/TT: 01/05/25 1119 Concrete Pump Operator Helper: us [facility] External Provider IMG CT PROCEDURES Final Result * (ABNORMAL) Urinalysis, Complete, with Reflex to Culture (12/06/2024 12:50 PM EST) Color Urine Yellow [facility] Appearance Urine Clear [facility] PH 7.5 5.0 - 9.0 [facility] Glucose Urine UA Negative Negative mg/dL [facility] Urine Blood Negative Negative [facility] Specific Rotan - Urine 1.015 1.005 - 1.025 [facility] Urine Protein Trace Neg-Trace mg/dL [facility] Urine Ketones Negative Negative mg/dL [facility] Nitrite Urine Negative Negative [facility] Leukocyte Esterase Urine Small (1+)(A) Negative [facility] RBC Urine 0-2 0 - 2 /HPF [facility] Urine WBC 11-20(A) 0 - 5 /HPF [facility] Urine Squamous Epithelial Cell 0-2 0 - 2 /HPF [facility] Urine Bacteria Trace None Seen [facility] Hyaline Casts, Urine 0-2 0 - 2 /LPF [facility] 12/06/2024 12:5 0 PM EST 12/06/2024 1:03 PM EST Narrative [facility] - 12/06/2024 1:24 PM EST Urine, Clean Catch Generic External Data Provider LAB URINE ORDERAB LES Final Result Performing Organization Address [facility]/ZIP Co de Phone Number [facility] [address] [place] [phone] * SARS-CoV-2 RNA, Influenza A/B, and RSV RNA, Ql NAAT (12/06/2024 12:50 PM EST) Influenza A PCR NEGATIVE Negative [facility] Influenza B PCR NEGATIVE Negative [facility] Resp Syncy Virus RNA Qual PCR NEGATIVE Negative [facility] SARS COV2 PCR NEGATIVE Negative [facility] Comment:All test results mus t be [...] use by authorized laboratories.Testing performed on the [employer] GeneXpert utilizingreal-time RT-PCR.All SARS CoV2 and positive influenza A/B results arereported to [facility]. 12/06/2024 12:5 0 PM EST 12/06/2024 1:03 PM EST us Generic External Data Provider LAB MICROBIOLOGY - GENERAL ORDERABLES Final Result Performing Organization Address [facility]/ZIP Co de Phone Number [facility] [address] [place] [phone] [phone] * (ABNORMAL) Hepatic Function Panel (12/06/2024 12:50 PM EST) Bilirubin, Total 0.2 0.0 - 1.0 mg/dL [facility] Bilirubin, Direct <0.2 0.0 - 0.5 mg/dL [facility] Aspartate Amino Transferase 23 5 - 31 U/L [facility] Alanine Aminotransferase 26 0 - 31 U/L [facility] Total Protein 8.1(H) 6.5 - 8.0 g/dL [facility] Albumin Level 4.4 3.5 - 5.0 g/dL [facility] Alkaline Phosphatase 92 39 - 117 U/L [facility] 12/06/2024 12:5 0 PM EST 12/06/2024 1:03 PM EST Generic External Data Provider LAB BLOOD ORDERAB LES Final Result Performing Organization Address City/[facility]/ZIP Co de Phone Number [facility] [address] [place] [phone] * Culture, Urine, Routine (12/06/2024 12:00 AM EST) Urine Urine specimen obtained by clean catch procedure / Unknown 12/06/2024 12/06/2024 Comment:UACC Narrative [facility] - 12/07/2024 8:13 AM EST Urine Culture Report Result Urine Culture 50,000 to 100,000 cfu/ml Urine Culture Mixed bacterial cabrera characteristic of Urine Culture urogenital contamination. Specimen Source: Urine clean catch Generic External Data Provider LAB MICROBIOLOGY - GENERAL ORDERABLES Final Result Performing Organization Address [facility]/ZIP Co de Phone Number [facility] [address] [place] [phone] * US Head Neck Soft Tissue (11/25/2024 2:35 PM EST) Anatomical Region Laterality Modality Head, Neck Ultrasound 11/25/2024 2:35 PM EST Narrative 11/26/2024 8:32 AM EST ? [facility] ?[address] ?[place] [address] ? Ultrasound Report ? Signed ? Patient: Kiniel,Tisha ?MR#: [id number] ?? 61 ? : 1970 ?Acct:[id number] ? Age/Sex: 54 / F ?ADM Date: 11/25/24 ? Loc: HO.US ? Attending Dr: Geneva Candelario MD ? Ordering Physician: Geneva Candelario MD ?? Date of Service: 11/25/24 ?? Procedure(s): US soft tiss head and/or neck ?? Accession Number(s): [id number] ? cc: Linda Murphy DO; Geneva Candelario [...] ?? x 1.6 x 0.52 cm. ? US/ soft tiss head and/or neck ?? IMPRESSION: ?? Multiple bilateral cervical neck lymph nodes. Most of these lymph nodes ?? are new and have benign appearance.. ? Electronically signed by: ??Jamie Hassan MD ??11/26/2024 08:29 AM EST RP ? Dictated By: ?Jamie Hassan MD ? Signed By: ?<Electronically signed by Jamie aHssan MD in OV> ?11/26/24 0829 ? DD/ 1435 ? TD/TT: 11/25/24 1450 ? Concrete Pump Operator Helper: MSM ? Procedure Note Elena Roth - 11/26/2024 [place] [address] Ultrasound Report Signed Patient: Ayanna RuiznMR#: [id number] 61 : 1970Acct:[id number] Age/Sex: 54 / FADM Date: 11/25/24 Loc: HO.US Attending Dr: Geneva Candelario MD Ordering Physician: Geneva Candelario MD Date of Service: 11/25/24 Procedure(s): US soft tiss head and/or neck Accession Number(s): [id number] cc: Linda Murphy DO; Geneva Candelario MD [...] by: Jamie Hassan MD 11/26/2024 08:29 AM [facility] Dictated By: Jamie Hassan MD Signed By: <Electronically signed by Jamie Hassan MD in OV> 11/26/24 0829 DD/ 1435 TD/TT: 11/25/24 1450 Concrete Pump Operator Helper: DAMI [facility] External Provider IMG US PROCEDURES Edited Result - Final * Albumin, Random Urine W/Creatinine (08/13/2024 3:30 PM EDT) Creatinine, Urine 21.51 mg/dL [facility] Microalbumin Urine <5.0 mg/L [facility] Microalbum Creatinine Ratio Ur TNP <30 ug/mg cr [facility] Comment:Unable to calculate albumin/creatinine ratio due to lowmicroalbumin or creatinine result. Urine (Urine, Random) 08/13/2024 3:30 PM EDT 08/13/2024 3:38 PM EDT us Linda Murphy DO LAB URINE ORDERABLES Final R esult [facility] [address], [place] [phone] * (ABNORMAL) Lipid Panel, Standard (08/13/2024 3:26 PM EDT) Triglycerides 257(H) <150 mg/dL [facility] Comment:Desirable Triglyceri de: less than 150 mg/dLBorderline High Triglyceride 150-199 mg/dLHigh Triglyceride: 200-499 mg/dLVery High Triglyceride: greater than or equal to 5OO mg/dL Cholesterol 151 <200 mg/dL [facility] Comment:Desirable Cholestero l: less than 200 mg/dLBorderline High Cholesterol: 200-239 mg/dLHigh Cholesterol: greater than 239 mg/dL LDL Cholesterol Calculated 61 <100 mg/dL [facility] Comment:Desirable LDL: less than 100 mg/dLNear Optimal/Above Optimal LDL: 110- 129 mg/dLBorderline High LDL: 130-159 mg/dLHigh LDL: 160-189 mg/dLVery High LDL: greater than or equal to 190 mg/dL HDL Cholesterol 39(L) >40 mg/dL [facility] Comment:Desirable HDL: great er than 40 mg/dL Note: This HDL assay may give artificially low results in patients with liver disease. Blood Venous blood specimen / Unknown 08/13/2024 3:26 PM EDT 08/13/2024 3:26 PM EDT Linda Garciadillonelian DO LAB BLOOD ORDERABLES Final R esult Performing Organization Address [facility]/ZIP Co de Phone Number [facility] [address] [place] [phone] * HIV Ab/Ag ([facility]) (08/26/2023 2:47 PM EDT) HIV AB/AG Nonreactive Nonreactive [facility] Comment:HIV-1 p24 Ag and/or HIV-1/HIV-2 Ab not detected.A test result that is nonreactive does not exclude thepossibility of exposure to or infection with HIV-1 and/orHIV-2. Nonreactive results in this assay for individualswith prior exposure to HIV-1 and/or HIV-2 may be due toantigen and antibody levels that are below the limit ofdetection of this assay.The [employer] HIV Ag/Ab Combo assay result andsupplemental assay results should be interpreted inconjunction with the patient's clinical presentation,history and other laboratory results. If the results areinconsistent with clinical evidence, additional testing issuggested to confirm the result. 08/26/2023 2:47 PM EDT 08/26/2023 2:47 PM EDT us Linda Murphy DO LAB BLOOD ORDERABLES Final R esult [facility] [address] [place] [phone] * Hepatitis C Antibody with Reflex to HCV, RNA, Quantitative, Real-Time PCR (08/26/2023 2:47 PM EDT) Hepatitis C Antibody Nonreactive Nonreactive [facility] Comment:Antibodies to HCV no t detected; does not exclude early acuteHCV infection. 08/26/2023 2:47 PM EDT 08/26/2023 2:47 PM EDT Linda Murphy DO LAB BLOOD ORDERABLES Final R esult [facility] [address] [place] [phone] * HPV E6/E7 RFLX LUIS 16 18/45 (05/21/2022 3:45 PM EDT) HPV mRNA E6/E7 rflx Not Detected Not Detected [facility] Comment: Methodology: Senior Tax Analyst-Mediated Amplification This assay detects E6/E7 viral messenger RNA (mRNA) from 14 high-risk HPV types (16,18,31,33,35,39,45,51,52,56,58,59,66,68). Cervical sources are required for HPV testing. If a vaginal source from a patient who has had a total hysterectomy with removal of cervix was submitted, please contact the testing laboratory for alternative testing options. For additional information, please refer to http://education.ika[employer]s/faq/XSV078z1 (This link if provided for information/ educational purposes only.) THIS TEST WAS PERFORMED AT: [facility] [address] [place] [address],[address] [place], [place] ??[phone] VALERIA DURANT MD 05/21/2022 3:45 PM EDT Fercho Palmer MD HISTORICAL/NON ORDERABLE LABS Fi nal Result Performing Organization Address [facility]/ZIP Co de Phone Number [facility] [address] * Pap Smear (02/15/2022 12:00 AM EDT) Swab Linda Murphy DO LAB CYTOLOGY ORDERABLES Ce l Result [employer] [address] [place] [address], [place] [phone] * DIGITAL BILATERAL SCREEN 1 (04/01/2019 2:56 [...] Most Recently Relevant to Health Maintenance Insurance [facility] Care Teams Draw Hand Relationship Specialty Start Date End Date Linda Murphy DO [address] [place] [address] PCP - General Family Medicine 11/24/12 Antionette Murphy PharmD [address] [place] [address] Pharmacist Internal Medicine 07/15/24
--- OUTSIDE RECORDS SUMMARY | 2025-02-17 18:01 | XMS_ITS | Encounter Summary ---
Author Organization [employer] Address [address] [facility] [address]t [place] [address] Care Team Providers Care Medical Massage Therapist Name Role Phone Linda Murphy DO Primary Care Provider [phone] Antionette Murphy PharmD Unavailable [phone] Reason for Visit * Reason Onset Date Comments Durable Medical Equipment 03/06/2024 Encounter Details Date Type Department Care Team ([facility] st Contact Info) Description 03/06/2024 Telephone [facility] [address] [place] [address] Linda Murphy DO [address] [place] [address] Durable Medical Equipment Social History Tobacco Use [...] Description 02/26/2025 11:45 AM EDT Office Visit [facility] [address] [place] [address] Linda Murphy DO [address] [place] [address] documented as of this encounter Goals Goal [...] as of this encounter Care Teams Medical Massage Therapist Relationship Specialty Start Date End Date Linda Murphy DO [address] [place] [address] PCP - General Family Medicine 11/24/12 Antionette Murphy, EricD [address] [place] [phone] Pharmacist Internal Medicine 07/15/24 documented as of this encounter
--- OUTSIDE RECORDS SUMMARY | 2025-02-17 18:01 | XMS_ITS | Encounter Summary ---
Author Organization [employer] Address [address] [facility] 7[address] [place] [address] Care Team Providers Care Wrong Address Clerk Name Role Phone Linda Murphy DO Primary Care Provider [phone] Antionette Murphy PharmD Unavailable [phone] Encounter Details Date Type Department Care Team (Late st Contact Info) Description 02/17/2025 Orders Only GENERIC EXTERNAL DATA [...] Description 02/26/2025 11:45 AM EDT Office Visit [facility] [address] [place], [place] [phone] Linda Murphy DO [address] [place], [place] [phone] documented as of this encounter Goals Goal Patient Goal Type Associated Problems Recent Progress Patient-Stated? Author Hemoglobin A1c < 7 Result Component 7.7(01/27/2025 11:54 AM EDT) No Neri Yang, [place] documented as of this encounter Procedures Procedure Name Priority Date/Time Associated Diagnosis Comments CBC WITH AUTO DIFFERENTIAL Routine 02/17/2025 10:20 AM EDT documented in this encounter Results * (ABNORMAL) CBC auto differential (02/17/2025 10:20 AM EDT) White Blood Count 18.0(H) 4.8 - 10.8 X10*3/uL [facility] Red Blood Count 3.07(L) 4.20 - 5.50 X10*6/uL [facility] Hemoglobin 8.8(L) 12.0 - 16.0 g/dl [facility] Hematocrit 27.3(L) 37.0 - 47.0 % [facility] Mean Corpuscular Volume 88.9 80.0 - 98.0 fL [facility] Mean Corpuscular Hemoglobin 28.7 27.0 - 33.0 pg [facility] Mean Corpuscular HGB Conc 32.2 31.0 - 35.0 g/dl [facility] Red Cell Distribution Width 15.1 11.0 - 16.0 % [facility] Platelet Count 435(H) 160 - 400 X10*3/uL [facility] Mean Platelet Volume 9.6 9.4 - 12.3 fL [facility] Neutrophils Percent Auto 68.0 45 - 73 % [facility] Imm Gran Pct Auto 3.6(H) 0.0 - 0.4 % [facility] Lymphocytes Percent Auto 16.9(L) 20 - 40 % [facility] Monocytes Percent Auto 7.5 2 - 11 % [facility] Eosinophils Percent Auto 3.7 0 - 4 % [facility] Basophils Percent Auto 0.3 0 - 2 % [facility] NRBC Pct Auto 0.2 0.0 - 0.2 /100WBC [facility] Neutrophils Absolute Auto 12.2(H) 2.0 - 8.3 x10*3/uL [facility] Imm Gran Abs Auto 0.65(H) 0.00 - 0.03 X10*3/uL [facility] Lymphocytes Absolute Auto 3.1 1.2 - 4.9 X10*3/uL [facility] Monocytes Absolute Auto 1.4(H) 0.1 - 1.2 X10*3/uL [facility] Eosinophils Absolute Auto 0.7(H) 0.0 - 0.4 X10*3/uL [facility] Basophils Absolute Auto 0.1 0.0 - 0.2 X10*3/uL [facility] NRBC Abs Auto 0.030(H) 0.0 - 0.012 X10*3/uL [facility] 02/17/2025 10:2 0 AM EDT 02/17/2025 10:20 AM EDT us Generic External Data Provider LAB BLOOD ORDERAB LES Final Result [facility] [address] [place] [phone] documented in this encounter Visit Diagnoses Not on filedocumented in this encounter Additional Health Concerns Assessment Noted Time PHQ-9 Depression Total Score: 0 01/20/20 25 12:15 PM EDT documented as of this encounter Care Teams Wrong Address Clerk Relationship Specialty Start Date End Date Linda Murphy DO [address] [place] [phone] PCP - General Family Medicine 11/24/12 Antionette Murphy PharmD [address] [place] [address] Pharmacist Internal Medicine 07/15/24 documented as of this encounter
--- OUTSIDE RECORDS SUMMARY | 2025-02-17 18:01 | XMS_ITS | Encounter Summary ---
Author Organization [employer] Address [address] [facility] 7[address] [place] [address] Care Team Providers Care Coagulant Dipper Name Role Phone Linda Murphy DO Primary Care Provider [phone] Antionette Murphy PharmD Unavailable [phone] Reason for Visit * Reason Comments Med Refill Encounter Details Date Type Department Care Team ([facility] st Contact Info) Description 02/23/2024 Refill [facility] [address] [place] [address] Linda Murphy DO [address] [place] [address] Chronic obstructive pulmonary disease, unspecified COPD type [...] Description 02/26/2025 11:45 AM EDT Office Visit [facility] [address] [place] [phone] Linda Murphy DO [address] [place] [phone] documented as of this encounter Goals Goal [...] documented as of this encounter Care Teams Coagulant Dipper Relationship Specialty Start Date End Date Linda Murphy DO [address] [place] [address] [phone] PCP - General Family Medicine 11/24/12 Antionette Murphy PharmD [address] [place] [address] [phone] Pharmacist Internal Medicine 07/15/24 documented as of this encounter
--- NOTE | 2025-02-17 18:40 | ED.RECABL ---
HPI - Recheck/Abnormal Lab/Rx General Chief Complaint: Recheck/Abnormal Lab/Rx Stated Complaint: abnormal lab results Time Seen by Provider: 02/17/25 18:40 Source: patient Mode of arrival: ambulatory Limitations: no limitations History of Present Illness ED Provider: Melvin Gapsar DO HPI narrative: 54-year-old female with past medical history of left lower lung mass ([id number] lung cancer) with recent lung resection, discharged on 02/16/2025 (yesterday), type 2 diabetes, sleep apnea and thyroid cancer history presents to the ED for concerns regarding a low hemoglobin and hematocrit as well as concerns for ?infection? from outpatient labs. Review shows outpatient labs earlier today showing a neutrophilic predominant leukocytosis with a WBC over 18. Patient states she has had persistent left-sided posterior chest wall pain with deep breaths since the surgery but this is improving. She denies any chest pain at rest, dyspnea at rest, or exertional symptoms. She denies lower extremity swelling or pain. She states she has been walking well at home and changing the dressing over the surgical site of the anterior left chest wall every other day with close follow up with her surgeon. She denies any new symptoms including nausea, vomiting, abdominal pain or diarrhea. She does report a mild cough productive of clear sputum. She denies fevers or rigors at home. Related Data Home Medications ?Medication ?Instructions ?Recorded ?Confirmed lisinopril 2.5 mg tablet 2.5 mg PO DAILY@1200 09/05/20 02/11/25 metformin 500 mg tablet,extended 1,000 mg PO BID 09/05/20 02/11/25 release 24 hr acetaminophen 650 mg 650 mg PO Q8H PRN Pain 04/24/21 02/11/25 tablet,extended release albuterol sulfate 90 mcg/actuation 2 puff inhalation QID PRN Wheezing 04/24/21 02/11/25 aerosol inhaler atorvastatin 40 mg tablet 40 mg PO BEDTIME 04/24/21 02/11/25 glipizide 5 mg tablet 10 mg PO BID 04/24/21 02/11/25 haloperidol 5 mg tablet 2.5 mg PO BEDTIME 04/24/21 02/11/25 bupropion HCl 300 mg 24 hr tablet, 300 mg PO DAILY 06/07/22 02/11/25 extended release aripiprazole 20 mg tablet 20 mg PO BEDTIME 09/24/22 02/11/25 aspirin 81 mg tablet,delayed 81 mg PO DAILY 09/24/22 02/11/25 release bupropion HCl 150 mg 24 hr tablet, 150 mg PO DAILY 09/24/22 02/11/25 extended release clonazepam 1 mg tablet (Klonopin) 1 mg PO BID PRN Anxiety 04/04/23 02/11/25 semaglutide 7 mg tablet (Rybelsus) 7 mg PO DAILY 12/15/24 02/11/25 loratadine 10 mg tablet 10 mg PO DAILY 02/01/25 02/11/25 montelukast 10 mg tablet 10 mg PO BEDTIME 02/01/25 02/11/25 pantoprazole 20 mg tablet,delayed 20 mg PO DAILY@1700 02/01/25 02/11/25 release ascorbic acid (vitamin C) 250 mg 250 mg PO BID@1200,2100 02/11/25 02/11/25 tablet ferrous fumarate 324 mg (106 mg 324 mg PO BID@1200,2100 02/11/25 02/11/25 iron) tablet (Ferrocite) hydroxyzine pamoate 50 mg capsule 50 mg PO TID PRN anxiety 02/11/25 02/11/25 ipratropium 0.5 mg-albuterol 3 mg 3 ml inhalation QID PRN asthma 02/11/25 02/11/25 (2.5 mg base)/3 mL nebulization soln mometasone 100 mcg/actuation HFA 2 puff inhalation BID 02/11/25 02/11/25 aerosol inhaler (Asmanex HFA) omega-3 fatty acids 1,000 mg 1,000 mg PO DAILY 02/11/25 02/11/25 capsule vit no.95-ferrous 1 tab PO DAILY 02/11/25 02/11/25 fumarate 28 mg-folic acid 800 mcg tablet () tramadol 50 mg tablet 50 mg PO Q8H PRN severe pain 02/11/25 02/11/25 Previous Rx's ?Medication ?Instructions ?Recorded Tirosint-Michelle 200 mcg/mL oral 400 mcg (2 mL) PO DAILY #60 mL 01/25/25 solution (levothyroxine) docusate sodium 100 mg capsule 100 mg PO BID #30 caps 02/15/25 (Colace) tramadol 50 mg tablet 50 mg PO Q4H PRN pain #20 tabs 02/15/25 Allergies Allergy/AdvReac Type Severity Reaction Status Date / Time oxycodone [Percocet] Allergy Intermediate stomach Verified 02/17/25 16:21 pain SEASONAL ALLERGIES Allergy Unknown UNKNOWN Uncoded 02/11/25 06:59 Review of Systems Review of Systems: Yes all other systems are reviewed and are negative [facility] Past Medical History Medical History Hx of radiation therapy Sciatica of right side Back pain Arthritis Anemia Thyroid disease Anxiety On home oxygen therapy Incomplete right bundle branch block (RBBB) Uterine fibroid DANIEL (obstructive sleep apnea) Cervical cancer Schizoaffective disorder Pancreatitis Type 2 diabetes mellitus JESICA positive Vitamin D deficiency Postoperative hypothyroidism History of thyroid cancer Morbid obesity Sacroiliitis Multinodular goiter HLD (hyperlipidemia) COPD (chronic obstructive pulmonary disease) GERD (gastroesophageal reflux disease) Bipolar 1 disorder Hypercalcemia Goiter Hypothyroidism Surgical History Hx of total thyroidectomy Hx of tubal ligation Hx of cholecystectomy Family History Family History Father Bipolar 1 disorder Mother Diabetes mellitus Hypertension Hyperlipidemia COPD (chronic obstructive pulmonary disease) Paternal Aunt Breast cancer Sister Cervical cancer Social History Social History Household Members: Family Household Members Other:: duplex Housing: House Are you a primary resident care spec to a significant other at home: No Do you presently have visiting nurse or other home services: No Alcohol intake: never Comment: Pt refusing bed alarm, agrees to ring call raza for assist. 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 ?Moist mucous membranes Eyes: ?PERRL, EOMI Neck: ?Supple, nontender Chest: ?No significant chest wall tenderness located over the healing surgical site under the left breast, no erythema, induration or discharge noted. There is also a sutured site over the left posterior chest wall with no surrounding induration, erythema or discharge. No fluctuance of either site. No draining blood. Respiratory: ?Small amount of rhonchi located over the left lower lung field, otherwise lungs are clear, no increased work of breathing Cardio: ?Regular rate and rhythm, no murmur, 2+ radial and DP pulses symmetrically GI: ?Soft, nondistended, nontender Back: ?Normal range of motion, nontender Skin: ?No rash, no lesions Neuro: ?Alert and oriented to person, place and time, moves all 4 extremities, no focal deficits Extremities: ?No swelling or tenderness, full range of motion Psych: ?Calm, alert and cooperative, appropriate behavior Medications Administered Discontinued Medications Generic Name Dose Route Start Last Admin Trade Name Freq PRN Reason Stop Dose Admin Sodium Chloride 1,000 mls @ 999 mls/hr 02/17/25 19:30 02/17/25 19:34 Ns IV 02/17/25 20:30 999 mls/hr .Q1H1M RACHEL Administration Acetaminophen 1,000 mg in 100 mls @ 400 mls/hr 02/17/25 19:17 02/17/25 19:35 Ofirmev IV 02/17/25 19:31 400 mls/hr ONCE ONE Administration Medical Decision Making Medical Decision Making MDM Narrative: This is a pleasant, vitally stable and well-appearing female presenting with a leukocytosis with immature white blood cells. There was concern for postprocedure pneumonia which will be evaluated with repeat chest x-ray today. The patient is oxygenating well, there is no suspicion for pulmonary embolism or ACS. She has no signs of DVT on exam. She accepts offered acetaminophen for discomfort as she is due at this time and will receive fluids due to mild lactic acidosis. Labs reviewed and show a leukocytosis of 20.0 which is neutrophilic predominant which increased significantly compared to 2 days ago, improved from hospital hemoglobin of 7 0.4-8.7 today, unremarkable platelets, normal metabolic panel and mild lactic acidosis of 2.4, unremarkable hepatic panel. Lactic acidosis improved to 2.0 even before receiving IV fluids. The patient received a full L of IV fluids and acetaminophen. On re-evaluation she is very well-appearing, is in no acute distress, has no cough, and I do not suspect an infection at this time causing the lab findings. I do suspect it is secondary to the recent procedures and inflammatory response. There are no signs of cellulitis on exam. Although her chest x-ray shows a mild pleural effusion and persistent findings that may correlate with pneumonia, this does not clinically correlate and the chest x-ray appears unchanged per my independent interpretation from previous 2 days ago. Page has been sent out to primary care provider and the patient is instructed to follow up with PCP and surgeons and return with any signs of worsening infection. She is very content with plan. Admission/Observation Consideration of admission/observation: Escalation of care including admission/observation considered Lab Data 02/17/25 17:20 02/17/25 17:20 Labs: Lab Results 02/17/25 02/17/25 Range/Units 17:20 19:33 WBC 20.0 H (4.8-10.8) X10*3/uL RBC 3.00 L (4.20-5.50) X10*6/uL Hgb 8.7 L (12.0-16.0) g/dl Hct 26.2 L (37.0-47.0) % MCV 87.3 (80.0-98.0) fL MCH 29.0 (27.0-33.0) pg MCHC 33.2 (31.0-35.0) g/dl RDW 15.0 (11.0-16.0) % Plt Count 423 H (160-400) X10*3/uL MPV 9.3 L (9.4-12.3) fL Immature Gran % (Auto) 3.6 H (0.0-0.4) % Neut % (Auto) 67.7 (45-73) % Lymph % (Auto) 17.8 L (20-40) % Colbert % (Auto) 6.9 (2-11) % Eos % (Auto) 3.6 (0-4) % Baso % (Auto) 0.4 (0-2) % Lymph # (Auto) 3.6 (1.2-4.9) X10*3/uL Colbert # (Auto) 1.4 H (0.1-1.2) X10*3/uL Eos # (Auto) 0.7 H (0.0-0.4) X10*3/uL Baso # (Auto) 0.1 (0.0-0.2) X10*3/uL Abs Immat Gran (auto) 0.72 H (0.00-0.03) X10*3/uL Absolute Neuts (auto) 13.6 H (2.0-8.3) x10*3/uL Absolute Nucleated RBC 0.050 H (0.0-0.012) X10*3/uL Nucleated RBC % (auto) 0.3 H (0.0-0.2) /100WBC Sodium 139 (135-145) mmol/L Potassium 3.8 (3.3-5.1) mmol/L Chloride 104 (96-108) mmol/L Carbon Dioxide 28 (22-29) mmol/L Anion Gap 11 L (12-20) BUN 8 L (9-16) mg/dL Creatinine 0.86 (0.5-1.4) mg/dL Estim Creat Clear Calc 89.8 Estimated GFR > 60 Random Glucose 182 H (60-115) mg/dL Lactic Acid 2.4 H* (0.5-2.0) mmol/L Lactic Acid F/U @ 2Hr 2.0 (0.5-2.0) mmol/L Calcium 9.1 D (8.4-10.2) mg/dL Total Bilirubin 0.3 (0.0-1.0) mg/dL AST 31 (5-31) U/L ALT 27 (0-31) U/L Alkaline Phosphatase 96 (39-117) U/L Total Protein 6.6 (6.5-8.0) g/dL Albumin 3.7 (3.5-5.0) g/dL Discharge Plan Discharge Clinical Impression: Leucocytosis Qualifiers: Leukocytosis type: unspecified Qualified Code(s): D72.829 - Elevated white blood cell count, unspecified Patient Disposition: Home, Self-Care Instructions: Leukocytosis (ED) Additional Instructions: You were evaluated due to abnormal blood work showing increased white blood cells in your blood. This is likely due to the infant response to your recent procedures. Your chest x-ray was unchanged compared to prior 2 days ago. We gave you IV fluids and IV acetaminophen. Based on your symptoms and exam and well appearance, it does not appear that you have an infection, specifically. That you have pneumonia at this time. If you do develop any worsening cough with sputum production, difficulty breathing, fatigue, weakness or any other acute changes or concerns such as fevers or chills, please return to the emergency department. Otherwise follow up with your primary care provider and surgeon as scheduled. You can wash the wounds and only put dressings on if there continues to be drainage. Prescriptions: No Action Tirosint-Michelle 200 mcg/mL solution 400 mcg PO DAILY Qty: 60 5RF Rybelsus 7 mg tablet 7 mg PO DAILY montelukast 10 mg tablet 10 mg PO BEDTIME loratadine 10 mg Tablet 10 mg PO DAILY pantoprazole 20 mg tablet,delayed release (DR/EC) 20 mg PO DAILY@1700 ipratropium-albuterol 0.5 mg-3 mg(2.5 mg base)/3 mL solution for nebulization 3 ml inhalation QID PRN (Reason: asthma) hydroxyzine pamoate 50 mg capsule 50 mg PO TID PRN (Reason: anxiety) tramadol 50 mg tablet 50 mg PO Q8H PRN (Reason: severe pain) ascorbic acid (vitamin C) 250 mg tablet 250 mg PO BID@1200,2100 ferrous fumarate [Ferrocite] 324 mg (106 mg iron) tablet 324 mg PO BID@1200,2100 PNV cmb#95-ferrous fumarate-FA [] 28 mg iron- 800 mcg tablet 1 tab PO DAILY Asmanex HFA 100 mcg/actuation HFA aerosol inhaler 2 puff INHALATION BID omega-3 fatty acids 1,000 mg Capsule 1,000 mg PO DAILY docusate sodium [Colace] 100 mg capsule 100 mg PO BID Qty: 30 0RF tramadol 50 mg tablet 50 mg PO Q4H PRN (Reason: pain) Qty: 20 0RF lisinopril 2.5 mg tablet 2.5 mg PO DAILY@1200 metformin 500 mg tablet extended release 24 hr 1,000 mg PO BID atorvastatin 40 mg tablet 40 mg PO BEDTIME acetaminophen 650 mg tablet extended release 650 mg PO Q8H PRN (Reason: Pain) albuterol sulfate 90 mcg/actuation HFA aerosol inhaler 2 puff inhalation QID PRN (Reason: Wheezing) haloperidol 5 mg tablet 2.5 mg PO BEDTIME clonazepam [Klonopin] 1 mg tablet 1 mg PO BID PRN (Reason: Anxiety) glipizide 5 mg tablet 10 mg PO BID bupropion HCl 300 mg tablet extended release 24 hr 300 mg PO DAILY Patient Comments: to equal total dose of 450 mg daily aspirin 81 mg tablet,delayed release (DR/EC) 81 mg PO DAILY aripiprazole 20 mg tablet 20 mg PO BEDTIME bupropion HCl 150 mg tablet extended release 24 hr 150 mg PO DAILY Print Language: Turkmen
[2025-02-17 19:07] VITALS: BP 101/61; PULSE 81; RESP 18; TEMP 36.6; O2SAT 100
[2025-02-17 19:25] LABS: Reflex Lactate? Lactic Acid Added
[2025-02-17] MEDS: 0.9 % Sodium Chloride 1,000 ML 999 ML IV (19:34)
[2025-02-17] MEDS: Acetaminophen 1,000 MG/100 ML PIGGYBACK 400 MG IV (19:35)
--- NOTE | 2025-02-17 20:59 | PC.NURSE ---
Pt aox4, resting at the bedside. Surgical incision assesed. Edges are well approximated, no sign of infection or drainage. Xeroform and non adherent sterile dressing applied to left lobectomy surgical incision per provider verbal order. Pt tolerated well without discomfort. Pt instructed to maintain dressing dry, clean and intact, and to report any increased pain, redness, swelling, or drainage. Monitoring is ongoing.
[2025-02-17 21:00] VITALS: BP 102/49; PULSE 88; RESP 18; TEMP 36.6; O2SAT 98
[2025-02-17 21:51] VITALS: BP 102/49; PULSE 88; RESP 18; TEMP 36.6; O2SAT 98
== END 2025-02-17 21:52 | disposition home or self-care (01) ==
PROVIDERS: Emergency Provider Emergency Medicine
DX: R79.89 Other specified abnormal findings of blood chemistry (principal); E11.9 Type 2 diabetes mellitus without complications; G47.30 Sleep apnea, unspecified; D72.829 Elevated white blood cell count, unspecified; R11.2 Nausea with vomiting, unspecified; J90 Pleural effusion, not elsewhere classified; Z79.84 Long term (current) use of oral hypoglycemic drugs; Z79.899 Other long term (current) drug therapy; Z87.891 Personal history of nicotine dependence
CPT/HCPCS: 36415; 71046; 80053; 83605; 85025; 96361; 96374; 99284; 99285; J0131

== ENCOUNTER → 2025-02-17 19:18 | Outpatient (BNV) | payer OTHER, SELFPAY | PROVIDERS: Emergency Provider Emergency Medicine; Visit Provider Radiology Neuroradiology | DX: J90 Pleural effusion, not elsewhere classified (principal); J98.11 Atelectasis | CPT/HCPCS: 71046 ==

== ENCOUNTER 2025-02-23 10:10 | Outpatient (AMB) | payer OTHER, SELFPAY ==
--- NOTE | 2025-02-23 10:19 | A.OFFVIS_ITS ---
Vital Signs 02/23/25 10:27 Height 5 ft 7.75 in Weight 209 lb BMI 32.0 BP 129/56 L Blood Pressure Location Lt brachial Position Sitting Pulse 114 H Intake Visit Reasons: S/P VATS, Lt lower lobectomy, bronchoscopy Intake Note: Patient here s/p bronchoscopy, vats left lower lobectomy , mediastinal lymph node sampling, intercostal nerve block. Patient c/o: walking up hills, left side is painful of about 3 min, shortness of breath, incision are healing, denies redness, discharge, or other concerns Surgery: 02-11-2025 Computer [employer] System Markup Clerk Required: No Accompanied by: Self / Same As Patient Allergies oxycodone [Percocet] Allergy (Intermediate, Verified 02/23/25 10:28) stomach pain SEASONAL ALLERGIES Allergy (Unknown, Uncoded 02/23/25 10:28) UNKNOWN HPI Comments Details: Patient presents for follow-up status post left lobectomy. She is doing quite well. No respiratory issues or complaints. Slowly but steadily increasing her activity level. Incisional discomfort improving. Pathology was reviewed at the hospital but we reviewed today. [facility] Medical History Hx of radiation therapy Sciatica of right side Back pain Arthritis Anemia Thyroid disease Anxiety On home oxygen therapy Incomplete right bundle branch block (RBBB) Uterine fibroid DANIEL (obstructive sleep apnea) Cervical cancer Schizoaffective disorder Pancreatitis Type 2 diabetes mellitus JESICA positive Vitamin D deficiency Postoperative hypothyroidism History of thyroid cancer Morbid obesity Sacroiliitis Multinodular goiter HLD (hyperlipidemia) COPD (chronic obstructive pulmonary disease) GERD (gastroesophageal reflux disease) Bipolar 1 disorder Hypercalcemia Goiter Hypothyroidism Surgical History S/P partial lobectomy of lung (~02/11/25) Hx of total thyroidectomy Hx of tubal ligation Hx of cholecystectomy Family History Father Bipolar 1 disorder Mother Diabetes mellitus Hypertension Hyperlipidemia COPD (chronic obstructive pulmonary disease) Paternal Aunt Breast cancer Sister Cervical cancer Social History Household Members: Family Household Members Other:: duplex Housing: House Are you a primary progressive care manager to a significant other at home: No Do you presently have visiting nurse or other home services: No Alcohol intake: never Comment: Pt refusing bed alarm, agrees to ring call raza for assist. 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 All incisions clean dry and intact healing very well. Posterior port sutures uneventfully removed GI Other: Abdomen corpulent, soft, benign Assessment & Plan Assessment & Plan (1) Status post lobectomy of lung: Code(s): Z90.2 - Acquired absence of lung [part of] Category: Medical Plan Patient has been given local instructions and will see me in a few weeks' time for follow-up. All questions answered. Coding Level of Care Code Global (58062) Diagnoses Status post lobectomy of lung Z90.2
[2025-02-23 10:27] VITALS: BP 129/56; PULSE 114; BMI 32.0
--- OUTSIDE RECORDS SUMMARY | 2025-02-23 12:01 | XMS_ITS | Clinical Summary ---
Author Organization [address] [facility] Address [address] [place] [address] Phone Care Team Providers Care Provider Engagement Executive Name Role Phone Lvelian Linda Juanito RAMESH Primary Care Provider [phone] Allergies No known active allergies Medications acetaminophen [...] Diagnosed Date Allergic rhinitis 12/22/2024 Bipolar disorder ([facility] V24, [facility] V28) 12/12 DANIEL (obstructive sleep apnea) 12/22/2024 Hyperlipidemia 12/22/2024 Type 2 diabetes mellitus ([facility] V24, [facility] V 28) 12/22/2024 Fatty liver 12/22/2024 Status post thyroidectomy 12/22/2024 Hx of papillary thyroid carcinoma 12/22/2024 GERD (gastroesophageal reflux disease) Chronic low back pain 12/22/2024 Leukocytosis 12/22/2024 Toenail avulsion 12/22/2024 Plantar callus 12/22/2024 Onychomycosis 12/22/2024 Encounters Date Type Department Care Team Description 12/29/2024 1:45 PM EST Office Visit Orthopedic Surgery [place] [address] [phone] Gutierrez Ruiz DPM Controlled type 2 diabetes with neuropathy ([facility] V24, [facility] V28) (Primary Dx); Metatarsalgia of right foot; Eccrine [...] 9:15 AM EDT Office Visit Orthopedic Surgery [facility] [address] [phone] Gutierrez Ruiz DPM [address] [address] Health Maintenance Due Date Last Done Comments [...] patient's age to complete this topic Insurance [facility] Member Subscriber Plan / Payer (Ef fective 2013-Present) Name:Tisha Ruiz Relation to Subscriber:Self Name:Tisha Ruiz Payer ID:[id number] Group ID:[id number] Type:Not on file Address: [place] [address] [address] [id number] Care Teams Provider Engagement Executive Relationship Specialty Start Date End Date Linda Murphy DO [address] [place] [address] PCP - General Internal Medicine 04/09/19
== END 2025-02-23 10:32 | disposition home or self-care (01) ==
LOC: HO.HGS 10:10
PROVIDERS: Visit Provider Surgery
DX: Z90.2 Acquired absence of lung [part of] (principal)
CPT/HCPCS: 99024

== ENCOUNTER → 2025-02-23 10:10 | Outpatient (BNVA) | payer OTHER, SELFPAY | PROVIDERS: Visit Provider Surgery | DX: Z48.813 Encounter for surgical aftercare following surgery on the respiratory system (principal); Z90.2 Acquired absence of lung [part of] | CPT/HCPCS: 99212 ==

== ENCOUNTER 2025-03-02 10:08 | Outpatient (REF) | payer OTHER, SELFPAY ==
[2025-03-02 10:31] LABS: MANUAL DIFF FLAG NO
[2025-03-02 11:22] LABS: Basophils Absolute Auto 0.1 X10*3/uL (0.0-0.2); Basophils Percent Auto 0.8 % (0-2); Eosinophils Absolute Auto 0.6 X10*3/uL (0.0-0.4); Eosinophils Percent Auto 5.1 % (0-4); Hematocrit 28.9 % (37.0-47.0); Hemoglobin 9.4 g/dl (12.0-16.0); Imm Gran Abs Auto 0.08 X10*3/uL (0.00-0.03); Imm Gran Pct Auto 0.7 % (0.0-0.4); Lymphocytes Absolute Auto 2.4 X10*3/uL (1.2-4.9); Lymphocytes Percent Auto 19.9 % (20-40); Mean Corpuscular HGB Conc 32.5 g/dl (31.0-35.0); Mean Corpuscular Hemoglobin 28.6 pg (27.0-33.0); Mean Corpuscular Volume 87.8 fL (80.0-98.0); Mean Platelet Volume 9.3 fL (9.4-12.3); Monocytes Percent Auto 8.2 % (2-11); Neutrophils Absolute Auto 7.8 x10*3/uL (2.0-8.3); Neutrophils Percent Auto 65.3 % (45-73); Platelet Count 534 X10*3/uL (160-400); Red Blood Count 3.29 X10*6/uL (4.20-5.50); Red Cell Distribution Width 14.6 % (11.0-16.0); White Blood Count 11.9 X10*3/uL (4.8-10.8)
[2025-03-02 11:30] LABS: Estimated Average Glucose 134 mg/dL; Hemoglobin A1C 111.4183 umol/L; Hemoglobin A1c % 6.3 % (<6.0)
--- OUTSIDE RECORDS SUMMARY | 2025-03-02 11:36 | XMS_ITS | Encounter Summary ---
Author Organization [facility] Address [address] [place] [address] [address] [place] [address] Care Team Providers Care Christmas Tree Farm Worker Name Role Phone Linda Murphy DO Primary Care Provider + [phone] DelNeri zavala PharmD Unavailable Unavail able Antionette Murphy PharmD Unavailable [phone] Reason for Referral * Imaging (Routine) - Canceled Specialty Diagnoses / Procedures Referred By Rolf pascual Referred To Contact Radiology Diagnoses Hilar mass Procedures CT Chest w/o Contrast Nora Astudillo FNP [address] [place] [address] Phone: tel: fax: [address] Phone: tel: fax: Referral ID Status Reason Start Date Expiration Date V isits Requested Visits Authorized [id number] Canceled 10/11/2023 10/10/2024 1 1 Encounter Details Date Type Department Care Team (Late st Contact Info) Description 10/11/2023 Orders Only [facility] [address] [place] [address] Nora Astudillo FNP [address] [place] [address] Hilar mass (Primary Dx) Social History Tobacco [...] as of this encounter Plan of Treatment Scheduled Orders Name Type Priority Associated Diagnoses Orde r Schedule CT Chest w/o Contrast Imaging Routine Hilar mass Expected: 10/11/2023, Expires: 10/11/2024 documented as of this encounter Goals Goal Patient Goal Type Associated Problems Recent Progress Patient-Stated? Author Hemoglobin A1c < 7 Result Component 6.3(03/02/2025 10:29 AM EDT) No Neri Yang, PharmD documented as of this encounter Visit Diagnoses Diagnosis Hilar mass- Primary documented in this encounter Additional Health Concerns Assessment Noted Time PHQ-9 Depression Total Score: 0 02/27/20 23 11:42 AM EDT documented as of this encounter Care Teams [employer] Tree Farm Worker Relationship Specialty Start Date End Date Linda Murphy DO [address] [place] [address] PCP - General Family Medicine 11/24/12 Neri Yang PharmD [address] [place] [address] Pharmacist Internal Medicine 11/23/22 10/17/23 Antionette Murphy PharmD [address] [place] [address] Pharmacist Internal Medicine 07/15/24 02/25/25 documented as of this encounter
--- OUTSIDE RECORDS SUMMARY | 2025-03-02 11:36 | XMS_ITS | Encounter Summary ---
Author Organization [employer] Address [address] [facility] [address] 7[address] [place] [address] Care Team Providers Care Marine Electrician Helper Name Role Phone Katherine Linda Primary Care Provider + [phone] Encounter Details Date Type Department Care Team ([facility] st Contact Info) Description 02/26/2025 Telephone [facility] [address] [place] [address] Antionette Murphy, PharmD [address] [place] [address] Social History Tobacco Use Types Packs/Day Years [...] encounter Miscellaneous Notes * Telephone Encounter - Antionette Murphy PharmD - 02/26/2025 3:54 PM EDT FYI to PCP - patient discharged from [facility] - Diabetes. Patient was seen x1 in [facility] for new patient 07/2024 but then lost to follow up. No active [facility] referral at this time. Patient also has had >2 consecutive canceled/no showed pharmacy visits and thus will be removed from the outreach list per existing workflow. If, upon further discussion, you feel patient would benefit from pharmacy services please issue a new referral to re-enroll. Thank you. documented in this encounter Plan of Treatment Not on file documented as of this encounter Goals Goal Patient Goal Type Associated Problems Recent Progress Patient-Stated? Author Hemoglobin A1c < 7 Result Component 6.3(03/02/2025 10:29 AM EDT) No Neri Yang PharmD documented as of this encounter Visit Diagnoses Not on filedocumented in this encounter Additional Health Concerns Assessment Noted Time PHQ-9 Depression Total Score: 0 01/20/20 25 12:15 PM EDT documented as of this encounter Care Teams Marine Electrician Helper Relationship Specialty Start Date End Date Linda Murphy DO [address] [place] [address] PCP - General Family Medicine 11/24/12 documented as of this encounter
--- OUTSIDE RECORDS SUMMARY | 2025-03-02 11:36 | XMS_ITS | Encounter Summary ---
Author Organization [employer] Address [address] [facility] 7t [place] [address] Care Team Providers Care Silk Spooler Name Role Phone Linda Murphy DO Primary Care Provider [phone] Dellogono Neri PharmD Unavailable Unavail able Antionette Murphy PharmD Unavailable Reason for Visit * Reason Comments Med Refill Encounter Details Date Type Department Care Team (Late st Contact Info) Description 04/10/2023 Refill [facility] [address] [place] [address] Linda Murphy DO [address] [facility] [place] [address] Social History Tobacco Use Types Packs/Day Years [...] as of this encounter Plan of Treatment Not on [...] documented as of this encounter Care Teams Silk Spooler Relationship Specialty Start Date End Date Linda Murphy DO [address] [place] [address] PCP - General Family Medicine 11/24/12 Neri Yang, PharmD [address] [place] [address] Pharmacist Internal Medicine 11/23/22 10/17/23 Antionette Murphy PharmD [address] [place] [address] Pharmacist Internal Medicine 07/15/24 02/25/25 documented as of this encounter
--- OUTSIDE RECORDS SUMMARY | 2025-03-02 11:36 | XMS_ITS | Encounter Summary ---
Author Organization [employer] Address [address] [facility] [address] [place] [address] Care Team Providers Care Rn Cardiac Name Role Phone LvLinda plummer Primary Care Provider [phone] Encounter Details Date Type Department Care Team (Latest Contact Info) Description 02/26/2025 Travel Social History Tobacco Use Types Packs/Day [...] documented as of this encounter Care Teams Rn Cardiac Relationship Specialty Start Date End Date Linda Murphy DO [address] [place] [address] PCP - General Family Medicine 11/24/12 documented as of this encounter
--- OUTSIDE RECORDS SUMMARY | 2025-03-02 11:36 | XMS_ITS | Encounter Summary ---
Author Organization [email or web address] Address [address] 7t [place] [address] Care Team Providers Care Religious Studies Professor Name Role Phone Linda Murphy DO Primary Care Provider [phone] Antionette Murphy PharmD Unavailable [phone] Reason for Visit * Reason Onset Date Comments Medication Question 11/13/2023 Encounter Details Date Type Department Care Team ([facility] st Contact Info) Description 11/13/2023 Telephone [facility] [address] [place] [address] Linda Murphy DO [address] [place] [address] Medication Question Social History Tobacco Use Types [...] 11/08 Physical appointment. Please contact pt at [phone] documented in this encounter Plan of Treatment [...] documented as of this encounter Care Teams Religious Studies Professor Relationship Specialty Start Date End Date Linda Murphy DO [address] [place] [address] PCP - General Family Medicine 11/24/12 Antionette Murphy PharmD [address] [place] [address] Pharmacist Internal Medicine 07/15/24 02/25/25 documented as of this encounter
--- OUTSIDE RECORDS SUMMARY | 2025-03-02 11:36 | XMS_ITS | Encounter Summary ---
Author Organization [employer] Address [address] [facility] 7t [place] [address] Care Team Providers Care Dry Transfer Man Name Role Phone Linda Murphy DO Primary Care Provider [phone] Antionette Murphy PharmD Unavailable [phone] Reason for Visit * Reason Comments Med Refill Encounter Details Date Type Department Care Team ([facility] st Contact Info) Description 02/23/2024 Refill [facility] [address] [place] [address] Linda Murphy DO [address] [place] [address] Chronic obstructive pulmonary disease, unspecified COPD type [...] as of this encounter Care Teams Dry Transfer Man Relationship Specialty Start Date End Date Linda Murphy DO [address] [place] [address] PCP - General Family Medicine 11/24/12 Antionette Murphy PharmD [address] [place] [address] Pharmacist Internal Medicine 07/15/24 02/25/25 documented as of this encounter
--- OUTSIDE RECORDS SUMMARY | 2025-03-02 11:36 | XMS_ITS | Encounter Summary ---
Author Organization [employer] [facility] Address [address] [place] [address] 7t [place] [address] Care Team Providers Care Lead Furnace Operator Name Role Phone Linda Murphy DO Primary Care Provider Dellogla Neri PharmD Unavailable Unavail able Antionette Murphy PharmD Unavailable Reason for Visit * Reason Comments Med Refill Encounter Details Date Type Department Care Team (Late st Contact Info) Description 07/08/2023 Refill [facility] [address] [place] [address] Linda Murphy DO [address] [place] [address] Pain Social History Tobacco Use Types Packs/Day [...] Result Component 6.3(03/02/2025 10:29 AM EDT) No Dellogono, Neri, PharmD documented as of this encounter Visit Diagnoses Diagnosis Pain Generalized pain documented in this encounter Additional Health Concerns Assessment Noted Time PHQ-9 Depression Total Score: 0 02/27/20 11:42 AM EDT documented as of this encounter Care Teams Lead Furnace Operator Relationship Specialty Start Date End Date Linda Murphy DO [address] [place] [address] PCP - General Family Medicine 11/24/12 Neri Yang, EricD [address] [place] [address] Pharmacist Internal Medicine 11/23/22 10/17/23 Antionette Murphy PharmD [address] [place] [address] Pharmacist Internal Medicine 07/15/24 02/25/25 documented as of this encounter
--- OUTSIDE RECORDS SUMMARY | 2025-03-02 11:36 | XMS_ITS | Encounter Summary ---
Author Organization [employer] Address [address] [facility] 7t [place] [address] Care Team Providers Care Senior Risk Manager Name Role Phone Linda Murphy DO Primary Care Provider [phone] Neri Yang PharmD Unavailable Unavail able Antionette Murphy PharmD Unavailable Reason for Visit * Reason Onset Date Comments Results 10/08/2023 Encounter Details Date Type Department Care Team ([facility] st Contact Info) Description 10/08/2023 Telephone [facility] [address] [place] [address] Linda Murphy DO [address] [place], [place] [phone] Results Social History Tobacco Use Types Packs/Day [...] yesterday 10/07/2023 but was [facility]. documented in this encounter Plan of Treatment [...] as of this encounter Care Teams Senior Risk Manager Relationship Specialty Start Date End Date Linda Murphy DO [address] [place] [address] PCP - General Family Medicine 11/24/12 Neri Yang, PharmD [address] [place] [address] Pharmacist Internal Medicine 11/23/22 10/17/23 Antionette Murphy PharmD [address] [place] [address] Pharmacist Internal Medicine 07/15/24 02/25/25 documented as of this encounter
--- OUTSIDE RECORDS SUMMARY | 2025-03-02 11:36 | XMS_ITS | Encounter Summary ---
Author Organization [email or web address] Address [address] [facility] [address] [place] [address] Care Team Providers Care Protective Signal Repairer Helper Name Role Phone Linda Murphy DO Primary Care Provider [phone] Antionette Murphy PharmD Unavailable [phone] Reason for Visit * Reason Onset Date Comments Med Refill 02/22/2025 Encounter Details Date Type Department Care Team (Late st Contact Info) Description 02/22/2025 Refill [facility] [address] [place] [address] Linda Murphy DO 230 [facility] [place] [address] Type 2 diabetes mellitus with other specified complication, unspecified whether keno terminal operator insulin use (CMS/HCC); Chronic low back pain, unspecified back pain [...] the past 12 months, has t he [employer] gas[employer] oil or [employer] company threatened to [...] encounter Miscellaneous Notes * Addendum Note - Danny García RN - 02/26/2025 8:56 AM EDTAddended by: DANNY GARCÍA on: 02/26/2025 08:56 AM Modules accepted: Orders * Telephone Encounter - Danny García RN - 02/22/2025 1:44 PM EDT Tramadol medication not due as of now. Per day reviewed 02/22/25: -Tramadol Rx'd by PCP on 01/27/25 qty 84 for a 28 day supply -Tramadol Rx'd by Rose Michelle on 02/15/25 qty 20 for a 3 day supply Between both RX's patient is not due until 03/01/25. RN will pend to PCP on 02/26/25. * Telephone Encounter - Sabine Gray LPN - 02/22/2025 1:34 PM EDT Last seen 3. documented in this encounter Plan of Treatment Not on file documented as of this encounter Goals Goal Patient Goal Type Associated Problems Recent Progress Patient-Stated? Author Hemoglobin A1c < 7 Result Component 6.3(03/02/2025 10:29 AM EDT) No Neri Yagn, PharmD documented as of this encounter Visit Diagnoses Diagnosis Type 2 diabetes mellitus with other specified complication, unspecified whether keno terminal operator insulin use ([facility]) Chronic low back pain, unspecified back pain laterality, unspecified whether sciatica present documented in this encounter Additional Health Concerns Assessment Noted Time PHQ-9 Depression Total Score: 0 01/20/20 25 12:15 PM EDT documented as of this encounter Care Teams Protective Signal Repairer Helper Relationship Specialty Start Date End Date Linda Murphy DO 230 [place] [address] PCP - General Family Medicine 11/24/12 Antionette Murphy PharmD 230 [place] [address] Pharmacist Internal Medicine 07/15/24 02/25/25 documented as of this encounter
--- OUTSIDE RECORDS SUMMARY | 2025-03-02 11:36 | XMS_ITS | Encounter Summary ---
Author Organization [email or web address] Address [address] [facility] 7t [place] [address] Care Team Providers Care Packager Or Packer And Weigher Name Role Phone Linda Murphy DO Primary Care Provider Dellogono Neri PharmD Unavailable Unavail able Antionette Murphy PharmD Unavailable Reason for Visit * Reason Comments Med Refill Encounter Details Date Type Department Care Team ([facility] st Contact Info) Description 04/05/2023 Refill [facility] [address] [place] [address] Linda Murphy DO [address] [place] [address] Social History Tobacco Use Types Packs/Day Years [...] documented as of this encounter Care Teams Packager Or Packer And Weigher Relationship Specialty Start Date End Date Linda Murphy DO 230 [place] [address] PCP - General Family Medicine 11/24/12 Neri Yang, PharmD [address] [place] [phone] Pharmacist Internal Medicine 11/23/22 10/17/23 Antionette Murphy PharmD [address] [place] [address] Pharmacist Internal Medicine 07/15/24 02/25/25 documented as of this encounter
--- OUTSIDE RECORDS SUMMARY | 2025-03-02 11:36 | XMS_ITS | Encounter Summary ---
Author Organization [employer] Address [address] [facility] 7t [place] [address] Care Team Providers Care Cake Puller Name Role Phone Linda Murphy DO Primary Care Provider + [phone] Encounter Details Date Type Department Care Team (Late st Contact Info) Description 02/26/2025 11:45 AM EDT Office Visit [facility] [address] [place] [address] Linda Murphy DO [address] [place] [address] Non-small cell cancer of left lung (CMS/HCC) (Primary Dx); S/P lobectomy of lung; Anemia, unspecified type; Epidermal cyst; Type 2 diabetes mellitus without complication, without long-term current use of insulin (CMS/HCC) Social History Tobacco Use Types Packs/Day [...] AM EDT documented as of this encounter Last Filed Vital Signs Vital Sign Reading Time Taken Comments Blood Pressure 128/70 02/26/2025 12:09 PM EDT Pulse 92 02/26/2025 12:09 PM EDT Temperature 36.4 ??C (97.5 ??F) 02/26/2025 12:09 PM E DT Respiratory Rate 21 02/26/2025 12:09 PM EDT Oxygen Saturation 97% 02/26/2025 12:09 PM EDT Inhaled Oxygen Concentration - - Weight 96.2 kg (212 lb) 02/26/2025 12:09 PM EDT Height 170.2 cm (5' 7 ) 02/26/2025 12:09 PM EDT Body Mass Index 33.2 02/26/2025 12:09 PM EDT documented in this encounter Plan of Treatment Scheduled Orders Name Type Priority Associated Diagnoses Orde r Schedule T4, Free Lab Routine Non-small cell cancer of left lung (CMS/HCC) S/P lobectomy of lung Anemia, unspecified type Epidermal cyst Type 2 diabetes mellitus without complication, without long-term current use of insulin (CMS/HCC) Expected: 02/26/2025 (Approximate), Expires: 02/26/2026 Lipid Panel, Standard Lab Routine Non-small cell cancer of left lung (CMS/HCC) S/P lobectomy of lung Anemia, unspecified type Epidermal cyst Type 2 diabetes mellitus without complication, without long-term current use of insulin (CMS/HCC) Expected: 02/26/2025 (Approximate), Expires: 02/26/2026 TSH Lab Routine Non-small cell cancer of left lung (CMS/HCC) S/P lobectomy of lung Anemia, unspecified type Epidermal cyst Type 2 diabetes mellitus without complication, without long-term current use of insulin (CMS/HCC) Expected: 02/26/2025 (Approximate), Expires: 02/26/2026 Vitamin D, 25-Hydroxy, Total, Immunoassay Lab Routine Non-small cell cancer of left lung (CMS/HCC) S/P lobectomy of lung Anemia, unspecified type Epidermal cyst Type 2 diabetes mellitus without complication, without long-term current use of insulin (CMS/HCC) Expected: 02/26/2025 (Approximate), Expires: 02/26/2026 Hepatic Function Panel Lab Routine Non-small cell cancer of left lung (CMS/HCC) S/P lobectomy of lung Anemia, unspecified type Epidermal cyst Type 2 diabetes mellitus without complication, without long-term current use of insulin (CMS/HCC) Expected: 02/26/2025 (Approximate), Expires: 02/26/2026 Basic Metabolic Panel Lab Routine Non-small cell cancer of left lung (CMS/HCC) S/P lobectomy of lung Anemia, unspecified type Epidermal cyst Type 2 diabetes mellitus without complication, without long-term current use of insulin (CMS/HCC) Expected: 02/26/2025 (Approximate), Expires: 02/26/2026 Vitamin B12 (Cobalamin) and Folate Panel, Serum Lab Routine Non-small cell cancer of left lung (CMS/HCC) S/P lobectomy of lung Anemia, unspecified type Epidermal cyst Type 2 diabetes mellitus without complication, without long-term current use of insulin (CMS/HCC) Expected: 02/26/2025, Expires: 02/26/2026 Ferritin Lab Routine Non-small cell cancer of left lung (CMS/HCC) S/P lobectomy of lung Anemia, unspecified type Epidermal cyst Type 2 diabetes mellitus without complication, without long-term current use of insulin ([facility]/HCC) Expected: 02/26/2025, Expires: 02/26/2026 Iron And Total Iron Binding Capacity Lab Routine Non-small cell cancer of left lung (CMS/HCC) S/P lobectomy of lung Anemia, unspecified type Epidermal cyst Type 2 diabetes mellitus without complication, without long-term current use of insulin ([facility]/HCC) Expected: 02/26/2025, Expires: 02/26/2026 documented as of this encounter Goals Goal Patient Goal Type Associated Problems Recent Progress Patient-Stated? Author Hemoglobin A1c < 7 Result Component 6.3(03/02/2025 10:29 AM EDT) No Neri Yang, PharmD documented as of this encounter Procedures Procedure Name Priority Date/Time Associated Diagnosis Comments CBC WITH AUTO DIFFERENTIAL Routine 03/02/2025 10:29 AM EDT Non-small cell cancer of left lung (CMS/HCC) S/P lobectomy of lung Anemia, unspecified type Epidermal cyst Type 2 diabetes mellitus without complication, without long-term current use of insulin ([facility]) HEMOGLOBIN A1C Routine 03/02/2025 10:29 AM EDT Non-small cell cancer of left lung (CMS/HCC) S/P lobectomy of lung Anemia, unspecified type Epidermal cyst Type 2 diabetes mellitus without complication, without long-term current use of insulin ([facility]) POCT GLYCATED HEMOGLOBIN, TOTAL Routine 02/26/2025 12:13 PM EDT Type 2 diabetes mellitus without complication, without long-term current use of insulin ([facility]) POCT GLUCOSE Routine 02/26/2025 12:13 PM EDT Type 2 diabetes mellitus without complication, without long-term current use of insulin ([facility]) documented in this encounter Results * (ABNORMAL) CBC auto differential (03/02/2025 10:29 AM EDT) White Blood Count 11.9(H) 4.8 - 10.8 X10*3/uL [facility] Red Blood Count 3.29(L) 4.20 - 5.50 X10*6/uL [facility] Hemoglobin 9.4(L) 12.0 - 16.0 g/dl [facility] Hematocrit 28.9(L) 37.0 - 47.0 % [facility] Mean Corpuscular Volume 87.8 80.0 - 98.0 fL [facility] Mean Corpuscular Hemoglobin 28.6 27.0 - 33.0 pg [facility] Mean Corpuscular HGB Conc 32.5 31.0 - 35.0 g/dl [facility] Red Cell Distribution Width 14.6 11.0 - 16.0 % [facility] Platelet Count 534(H) 160 - 400 X10*3/uL [facility] Mean Platelet Volume 9.3(L) 9.4 - 12.3 fL [facility] Neutrophils Percent Auto 65.3 45 - 73 % [facility] Imm Gran Pct Auto 0.7(H) 0.0 - 0.4 % [facility] Lymphocytes Percent Auto 19.9(L) 20 - 40 % [facility] Monocytes Percent Auto 8.2 2 - 11 % [facility] Eosinophils Percent Auto 5.1(H) 0 - 4 % [facility] Basophils Percent Auto 0.8 0 - 2 % [facility] NRBC Pct Auto 0.0 0.0 - 0.2 /100WBC [facility] Neutrophils Absolute Auto 7.8 2.0 - 8.3 x10*3/uL [facility] Imm Gran Abs Auto 0.08(H) 0.00 - 0.03 X10*3/uL [facility] Lymphocytes Absolute Auto 2.4 1.2 - 4.9 X10*3/uL [facility] Monocytes Absolute Auto 1.0 0.1 - 1.2 X10*3/uL [facility] Eosinophils Absolute Auto 0.6(H) 0.0 - 0.4 X10*3/uL [facility] Basophils Absolute Auto 0.1 0.0 - 0.2 X10*3/uL [facility] NRBC Abs Auto 0.000 0.0 - 0.012 X10*3/uL [facility] Blood Venous blood specimen / Unknown 03/02/2025 10:29 AM EDT 03/02/2025 10:29 AM EDT Linda Murphy LAB BLOOD ORDERABLES Final R esult Performing Organization Address City/[facility]/ZIP Co de Phone Number [facility] [address] [place] [phone] * (ABNORMAL) Hemoglobin A1c (03/02/2025 10:29 AM EDT) Hemoglobin A1c 6.3(H) <6.0 % [facility] Comment:Hemoglobin A1C Refer ence Range Adults: 4.8 - 6.0 % Non diabetic: < 6.0 % Goal: < 7.0 %Additional Action Suggested: > 8.0 %Note: Hemoglobin A1c results are invalid for patients with abnormal amounts of HbF. Blood transfusions may impact the HbA1c concentration in the patient sample. Estimated Average Glucose 134 mg/dL [facility] Comment:eAG = Estimated ave rage glucose which is %A1C expressed asaverage glucose, using the formula of the Z1Y-TothsszMueqdqp Glucose study (ADAG), Diabetes Care, Vol.31,#8,Jun. 2007 Blood Venous blood specimen / Unknown 03/02/2025 10:29 AM EDT 03/02/2025 10:29 AM EDT Linda Garciamario DO LAB BLOOD ORDERABLES Final R esult Performing Organization Address City/[facility]/ZIP Co de Phone Number [facility] [address] [place] [phone] * (ABNORMAL) POCT HGB A1C (02/26/2025 12:13 PM EDT) Hemoglobin A1C 6.6(A) 4.0 - 6.0 % QC Media Lot # [id number] Lot# Expiration Date Blood 02/26/2025 12:1 3 PM EDT Linda Murphy DO POINT OF CARE TEST ENTER/JAME T ORDERABLES Final Result * POCT Glucose (02/26/2025 12:13 PM EDT) Glucose Blood, POC 182 60 - 200 mg/dL QC Media Lot # [id number] Lot# Expiration Date Blood Capillary blood specimen / Unknown 02/26/2025 12:13 PM EDT Linda Murphy DO POINT OF CARE TEST ENTER/JAME T ORDERABLES Final Result documented in this encounter Visit Diagnoses Diagnosis Non-small cell cancer of left lung (CMS/HCC)- Primary S/P lobectomy of lung Other postprocedural status Anemia, unspecified type Epidermal cyst Sebaceous cyst Type 2 diabetes mellitus without complication, without long-term current use of insulin (CMS/HCC) documented in this encounter Additional Health Concerns Assessment Noted Time PHQ-9 Depression Total Score: 0 01/20/20 25 12:15 PM EDT documented as of this encounter Care Teams Cake Puller Relationship Specialty Start Date End Date Linda Murphy DO [address] [place] [phone] PCP - General Family Medicine 11/24/12 documented as of this encounter
--- OUTSIDE RECORDS SUMMARY | 2025-03-02 11:36 | XMS_ITS | Clinical Summary ---
Author Organization [employer] Address [address] [facility] [address] [place] [address] Care Team Providers Care Interior Designer Name Role Phone KatherineVibhaLinda Primary Care Provider Allergies Active Allergy Reactions Criticality Noted Date Comments Oxycodone High 05/04/2013 Other reaction(s): Stomach Pain Other Reaction(s): stomach pain Oxycodone-Acetaminophen 07/03/2024 Pollen Extract Unknown 10/20/2024 Medications buPROPion XL (Wellbutrin XL) 300 MG 24 hr tablet Take 1 tablet by mouth in the morning. Active buPROPion XL (Wellbutrin XL) 150 MG 24 hr tablet Take 1 tablet by mouth in the morning. Active clonazePAM (KlonoPIN) 1 MG tablet 1 tablet twice daily as needed with an additional 1/2 tablet if needed Active haloperidol (Haldol) 5 MG tablet Take 0.5 tablets by mouth in the morning and at bedtime. Active ARIPiprazole (Abilify) 20 MG tablet Take 1 tablet by mouth 1 (one) time each day. Active Tirosint-ROBERT 200 MCG/ML solution TAKE 2mLs (400mcg) BY MOUTH ONCE DAILY 11/19/19 23 Active naloxone (Narcan) 4 mg/0.1 mL nasal spray Administer 1 spray (4 mg) into affected nostril(s) if needed for opioid reversal. 2 each 3 03/06/20 24 Active montelukast (Singulair) 10 MG tablet TAKE 1 TABLET BY MOUTH EVERY EVENING 90 tablet 3 05/15/20 24 Active Blood Glucose Monitoring Suppl (FreeStyle Lite) deviceIndicati ons:Type 2 diabetes mellitus without complication, without long-term current use of insulin ([facility]) Inject 1 each under the skin 2 [...] 60 tablet 3 07/15/20 24 025 Active ipratropium-al buterol (Duo-Neb) 0.5-2.5 mg/3 mL nebulizer solutionIndica tions:Chronic obstructive pulmonary disease, unspecified COPD type ([facility]) INHALE 1 AMPULE USING A NEBULIZER FOUR TIMES DAILY NEEDED FOR ASTHMA OR (for COPD) 180 mL 2 07/23/20 24 Active hydrOXYzine pamoate (Vistaril) 50 MG capsule TAKE 1 CAPSULE BY MOUTH THREE TIMES DAILY NEEDED FOR ANXIETY 07/15/20 24 Active Alcohol Swabs (Alcohol Prep) 70 % padsIndication s:Type 2 diabetes mellitus without complication, without long-term current use of insulin ([facility]) USE EVERY DAY UP TO TWICE DAILY 100 each 08/12/20 24 Active glucose blood (FREESTYLE LITE) test stripIndicatio ns:Type 2 diabetes mellitus without complication, without long-term current use of insulin ([facility]) Use to check blood sugar up to twice daily 100 each 08/12/20 24 Active TRUEplus Lancets 33G miscIndication s:Type 2 diabetes mellitus without complication, without long-term current use of insulin ([facility]) Use to check blood sugar up to twice daily 100 each 08/12/20 24 Active semaglutide (Rybelsus) 7 MG tablet TAKE 1 TABLET EVERY MORNING, 30 MINUTES BEFORE A MEAL ICD10= 30 tablet 5 08/26/20 24 Active metFORMIN XR (Glucophage-XR ) 500 MG 24 hr tabletIndicati ons:Type 2 diabetes mellitus without complication, without long-term current use of insulin ([facility]) TAKE 2 TABLETS BY MOUTH TWICE DAILY [...] SWALLOW CAPSULE 30 capsule 12/01/19 25 Active Mometasone Furoate (Asmanex HFA) 100 MCG/ACT aerosol Inhale 2 Act (200 mcg) 2 times daily. 13 g 12/23/19 25 Active albuterol (Ventolin HFA) 108 (90 Base) MCG/ACT inhalerIndicat ions:Chronic obstructive pulmonary disease, unspecified COPD type (CMS/HCC) Inhale 2 puffs every 4 (four) hours if needed for wheezing or shortness of breath. 18 g 2 12/23/19 25 Active Ascorbic Acid (vitamin C) 250 MG tablet TAKE 1 TABLET BY MOUTH TWICE DAILY AT NOON AND IN THE EVENING WITH IRON 180 tablet 12/23/19 25 Active Ferrocite 324 MG tablet TAKE 1 TABLET BY MOUTH TWICE DAILY AT NOON AND IN THE EVENING WITH VIT C 180 tablet 12/23/19 25 Active pantoprazole (ProtoNix) 20 MG EC tabletIndicati ons:Chronic GERD TAKE 1 TABLET BY MOUTH TWICE DAILY AT NOON AND IN THE EVENING 180 tablet 12/23/19 25 Active lisinopril 2.5 MG tablet TAKE 1 TABLET BY MOUTH EVERYDAY AT NOON 90 tablet 12/23/19 25 Active methocarbamol (Robaxin) 500 MG tablet Take 1 tablet by mouth every 6 (six) hours during the day. 07/06/20 24 Active Vit-Fe Fumarate-FA ( Vitamins) 28-0.8 MG tablet TAKE 1 TABLET BY MOUTH EVERYDAY AT NOON 90 tablet 3 01/30/20 25 Active aspirin (Aspirin Low Dose) 81 MG EC tabletIndicati ons:Type 2 diabetes mellitus with other specified complication, unspecified whether financial service representative insulin use ([facility]) Take 1 tablet (81 mg) by mouth at bedtime. 90 tablet 1 02/23/20 25 Active traMADol (Ultram) 50 MG tabletIndicati ons:Chronic low back pain, unspecified back pain laterality, unspecified whether sciatica present Take 1 tablet (50 mg) by mouth every 8 (eight) hours if needed for severe pain for up to 28 days. 84 tablet 03/02/20 25 025 Active COVID-19 At Home Antigen Test (QuickVue At-Home Covid-19 Test) kit 1 kit 1 (one) time. 11/17/19 025 Discontinued(M ed list cleanup (will not trigger notification to Pharmacy)) traZODone (Desyrel) 100 MG tablet Take 1 tablet by mouth after breakfast and after evening meal. 025 Discontinued(M ed list cleanup (will not trigger notification to Pharmacy)) Flovent HFA 110 MCG/ACT inhalerIndicat ions:Chronic obstructive pulmonary disease, unspecified COPD type ([facility]) INHALE 1 PUFF BY MOUTH TWICE DAILY IN THE MORNING AND IN THE EVENING 12 g 11 01/17/20 23 025 Discontinued(M ed list cleanup (will not trigger notification to Pharmacy)) Tirosint-ROBERT 150 MCG/ML solution 11/01/20 23 025 Discontinued(M ed list cleanup (will not trigger notification to Pharmacy)) clotrimazole (Lotrimin) 1 % creamIndicatio ns:Tinea APPLY TO AFFECTED AREA(S) AND SURROUNDING AREA(S) TWICE DAILY IN THE MORNING AND EVENING 60 g 2 01/21/20 24 025 Discontinued(M ed list cleanup (will not trigger notification to Pharmacy)) nicotine (Nicoderm CQ) 14 MG/24HR patchIndicatio ns:Tobacco dependence Place 1 patch on the skin 1 times each day at the same time for 6 weeks 30 patch 1 05/06/20 24 025 Discontinued(M ed list cleanup (will not trigger notification to Pharmacy)) lidocaine (Lidoderm) 5 % patchIndicatio ns:Acute post-traumatic headache, not intractable APPLY 1 TO 2 PATCHES TOPICALLY TO SKIN, LEAVE ON FOR 12 HOURS AND OFF FOR 12 HOURS DIRECTED 60 patch 3 07/15/20 24 025 Discontinued(M ed list cleanup (will not trigger notification to Pharmacy)) Aspirin Low Dose 81 MG EC tabletIndicati ons:Type 2 diabetes mellitus with other specified complication, unspecified whether financial service representative insulin use ([facility]) TAKE 1 TABLET BY MOUTH EVERY EVENING 90 tablet 1 09/02/20 24 025 Discontinued(R eorder (will not trigger notification to Pharmacy)) Lubricants (K-Y Jelly) gel Apply desired amount topically to vaginal area as needed for dryness 113 g 11 12/23/19 025 Discontinued(M ed list cleanup (will not trigger notification to Pharmacy)) naproxen (Naprosyn) 500 MG tablet Take 1 tablet (500 mg) by mouth if needed in the morning and at bedtime for mild pain. 30 tablet 12/23/19 025 Discontinued(M ed list cleanup (will not trigger notification to Pharmacy)) nicotine (Nicoderm, Step 1) 21 MG/24HR patch Place 1 patch on the skin 1 (one) time each day at the same time. 30 patch 1 12/23/19 025 Discontinued(M ed list cleanup (will not trigger notification to Pharmacy)) traMADol (Ultram) 50 MG tabletIndicati ons:Chronic low back pain, unspecified back pain laterality, unspecified whether sciatica present Take 1 tablet (50 mg) by mouth every 8 (eight) hours if needed for severe pain for up to 28 days. Do not start before January 21, 2025. 84 tablet 01/22/20 25 025 Discontinued(R eorder (will not trigger notification to Pharmacy)) guaiFENesin (Mucinex) 600 MG 12 hr tablet Take 2 tablets (1,200 mg) by mouth if needed in the morning and at bedtime for cough or congestion. Do not crush, chew, or split. 30 tablet 01/20/20 25 025 Discontinued(M ed list cleanup (will not trigger notification to Pharmacy)) Active [...] -f/u with pain mgmt prn -advised contact [facility] if sx change or worsen Leukocytosis [...] daily -cont regular BS monitoring -re-referred to [facility] pharmacist for eval -cont statin and [...] instrumentation of the toenail - refer to dike supervisor - TB UTD Plantar callus 08/26/2024 01/27/2025 [...] Encounters Date Type Department Care Team Description 02/26/2025 11:45 AM EDT Office Visit [address] [phone] Linda Murphy DO Non-small cell cancer of left lung (CMS/HCC) (Primary Dx); S/P lobectomy of lung; Anemia, unspecified type; Epidermal cyst; Type 2 diabetes mellitus without complication, without long-term current use of insulin ([facility]/HCC) 02/26/[address] [address] Antionette Murphy, EricD 02/26/[address] [address] Linda Murphy DO REGISTRATION FORM 02/26/2025 Travel 02/22/2025 Refill [facility] [address] [place] [address] Linda Murphy DO Type 2 diabetes mellitus with other specified complication, unspecified whether prison insulin use ([facility]); Chronic low back pain, unspecified back pain laterality, unspecified whether sciatica present 02/17/2025 Orders Only GENERIC EXTERNAL DATA DEPARTMENT Provider, Generic External Data 02/11/2025 Refill [facility] [address] [place] [address] Linda Murphy DO Chronic low back pain, unspecified back pain laterality, unspecified whether sciatica present 02/11/2025 Orders Only GENERIC EXTERNAL DATA DEPARTMENT Provider, Generic External Data 02/08/[address] [address] Linda Murphy DO Pre-op 02/01/2025 Orders Only GENERIC EXTERNAL DATA DEPARTMENT Provider, Generic External Data 01/28/2025 Refill [facility] [address] [place] [phone] Linda Murphy DO 01/27/2025 11:15 AM EDT Office Visit [address] [address] Linda Murphy DO Pre-op examination (Primary Dx); Type 2 diabetes mellitus without complication, without long-term current use of insulin ([facility]); Encounter for screening mammogram for malignant neoplasm of breast; Encounter for screening for malignant neoplasm of colon 01/27/2025 Travel 01/19/2025 11:45 AM EDT Telemedicine [address] [address] Linda Murphy DO Chest congestion (Primary Dx); Preop examination 01/19/[address] [address] Linda Murphy DO 01/19/2025 Travel 01/18/2025 Refill [facility] [address] [place] [address] Linda Murphy DO Chronic low back pain, unspecified back pain laterality, unspecified whether sciatica present 01/12/[address] [address] No Lopez, RN NCNS SCHEDULING ANALYST RV today 01/07/[address] [address] No Lopez, RN NCNS for SCHEDULING ANALYST RV today 01/07/[address] [address] No Lopez, RN Recommend SCHEDULING ANALYST Tier 2 01/05/2025 Orders Only GENERIC EXTERNAL DATA DEPARTMENT Provider, Generic External Data 12/23/2024 Refill [facility] [address] [place] [phone] Linda Murphy DO Chronic GERD 12/21/2024 Refill [facility] [address] [place] [address] Linda Murphy DO Chronic low back pain, unspecified back pain laterality, unspecified whether sciatica present 12/18/2024 Refill [facility] [address] [place] [phone] Linda Murphy DO 12/18/2024 Refill [facility] [address] [place] [address] Linda Murphy DO Acute post-traumatic headache, not intractable; Chronic obstructive pulmonary disease, unspecified COPD type ([facility]) 12/18/2024 Refill [facility] [address] [place] [address] Linda Murphy DO Type 2 diabetes mellitus without complication, without long-term current use of insulin ([facility]); Type 2 diabetes mellitus with other specified complication, unspecified whether prison insulin use ([facility]); Chronic obstructive pulmonary disease, unspecified COPD type ([facility]) 12/15/2024 Orders Only GENERIC EXTERNAL DATA DEPARTMENT Provider, Generic External Data 12/07/2024 Telephone [facility] [address] [place] [address] Linda Murphy DO 12/06/2024 Orders Only GENERIC EXTERNAL DATA DEPARTMENT Provider, Generic External Data from Last 3 Months Immunizations Name Administration [...] Mass Index 33.2 02/26/2025 12:09 PM EDT Plan of Treatment Health Maintenance Due Date Last Done Comments [...] 08/13/2024, 08/11, 09/19/2022, Additional history exists Diabetes: Hemoglobin A1C 09/01/2025 025, 02/26/2025, 01/27/2025, Additional history exists Diabetes: Foot Exam 09/18/2025 [...] 10:29 AM EDT) No Neri Yang, PharmD Procedures Procedure Name Priority Date/Time Associated Diagnosis Comments CBC WITH AUTO DIFFERENTIAL Routine 03/02/2025 10:29 AM EDT Non-small cell cancer of left lung (CMS/HCC) S/P lobectomy of lung Anemia, unspecified type Epidermal cyst Type 2 diabetes mellitus without complication, without long-term current use of insulin ([facility]) HEMOGLOBIN A1C Routine 03/02/2025 10:29 AM EDT Non-small cell cancer of left lung ([facility]) S/P lobectomy of lung Anemia, unspecified type Epidermal cyst Type 2 diabetes mellitus without complication, without long-term current use of insulin ([facility]) POCT GLYCATED HEMOGLOBIN, TOTAL Routine 02/26/2025 12:13 PM EDT Type 2 diabetes mellitus without complication, without long-term current use of insulin ([facility]) POCT GLUCOSE Routine 02/26/2025 12:13 PM EDT Type 2 diabetes mellitus without complication, without long-term current use of insulin ([facility]) CBC WITH AUTO DIFFERENTIAL Routine 02/17/2025 10:20 [...] complication, without long-term current use of insulin ([facility]) POCT GLUCOSE Routine 01/27/2025 11:54 AM EDT Pre-op examination Type 2 diabetes mellitus without complication, without long-term current use of insulin ([facility]) XR CHEST 2 VIEWS STAT 01/20/2025 11:3 [...] URINE, ROUTINE Routine 12/06/2024 12:00 AM EST ALBUMIN, RANDOM URINE W/CREATININE Routine 08/13/2024 [...] Maintenance Results * (ABNORMAL) CBC auto differential (03/02/2025 10:29 AM EDT) Only the most recent of4 resultswithin the time period is included. White Blood Count 11.9(H) 4.8 - 10.8 X10*3/uL [facility] Red Blood Count 3.29(L) 4.20 - 5.50 X10*6/uL [facility] Hemoglobin 9.4(L) 12.0 - 16.0 g/dl [facility] Hematocrit 28.9(L) 37.0 - 47.0 % [facility] Mean Corpuscular Volume 87.8 80.0 - 98.0 fL [facility] Mean Corpuscular Hemoglobin 28.6 27.0 - 33.0 pg [facility] Mean Corpuscular HGB Conc 32.5 31.0 - 35.0 g/dl [facility] Red Cell Distribution Width 14.6 11.0 - 16.0 % [facility] Platelet Count 534(H) 160 - 400 X10*3/uL [facility] Mean Platelet Volume 9.3(L) 9.4 - 12.3 fL [facility] Neutrophils Percent Auto 65.3 45 - 73 % [facility] Imm Gran Pct Auto 0.7(H) 0.0 - 0.4 % [facility] Lymphocytes Percent Auto 19.9(L) 20 - 40 % [facility] Monocytes Percent Auto 8.2 2 - 11 % [facility] Eosinophils Percent Auto 5.1(H) 0 - 4 % [facility] Basophils Percent Auto 0.8 0 - 2 % [facility] NRBC Pct Auto 0.0 0.0 - 0.2 /100WBC [facility] Neutrophils Absolute Auto 7.8 2.0 - 8.3 x10*3/uL [facility] Imm Gran Abs Auto 0.08(H) 0.00 - 0.03 X10*3/uL [facility] Lymphocytes Absolute Auto 2.4 1.2 - 4.9 X10*3/uL [facility] Monocytes Absolute Auto 1.0 0.1 - 1.2 X10*3/uL [facility] Eosinophils Absolute Auto 0.6(H) 0.0 - 0.4 X10*3/uL [facility] Basophils Absolute Auto 0.1 0.0 - 0.2 X10*3/uL [facility] NRBC Abs Auto 0.000 0.0 - 0.012 X10*3/uL [facility] Blood Venous blood specimen / Unknown 03/02/2025 10:29 AM EDT 03/02/2025 10:29 AM EDT us Linda Murphy DO LAB BLOOD ORDERABLES Final R esult [facility] [address] [place] [phone] * (ABNORMAL) Hemoglobin A1c (03/02/2025 10:29 AM EDT) Only the most recent of2 resultswithin the time period is included. Hemoglobin A1c 6.3(H) <6.0 % [facility] Comment:Hemoglobin A1C Refer ence Range Adults: 4.8 - 6.0 % Non diabetic: < 6.0 % Goal: < 7.0 %Additional Action Suggested: > 8.0 %Note: Hemoglobin A1c results are invalid for patients with abnormal amounts of HbF. Blood transfusions may impact the HbA1c concentration in the patient sample. Estimated Average Glucose 134 mg/dL [facility] Comment:eAG = Estimated ave rage glucose which is %A1C expressed asaverage glucose, using the formula of the Z2Y-BgsxvxoUanzdun Glucose study (ADAG), Diabetes Care, Vol.31,#8,Aug. 2008 Blood Venous blood specimen / Unknown 03/02/2025 10:29 AM EDT 03/02/2025 10:29 AM EDT Linda Katherine DO LAB BLOOD ORDERABLES Final R esult [facility] [address] [place] [phone] * (ABNORMAL) POCT HGB A1C (02/26/2025 12:13 PM EDT) Only the most recent of2 resultswithin the time period is included. Hemoglobin A1C 6.6(A) 4.0 - 6.0 % QC Media Lot # [id number] Lot# Expiration Date , Blood 02/26/2025 12:1 3 PM EDT Linda Katherine DO POINT OF CARE TEST ENTER/JAME T ORDERABLES Final Result * POCT Glucose (02/26/2025 12:13 PM EDT) Only the most recent of2 resultswithin the time period is included. Glucose Blood, POC 182 60 - 200 mg/dL QC Media Lot # [id number] Lot# Expiration Date , Blood Capillary blood specimen / Unknown 02/26/2025 12:13 PM EDT Linda Murphy DO POINT OF CARE TEST ENTER/JAME T ORDERABLES Final Result * XR Chest 1 View (02/15/2025 10:10 AM EDT) Only the most recent of8 resultswithin the time period is included. Anatomical Region Laterality Modality Chest Radiographic Rosaura ging 02/15/2025 10:1 0 AM EDT Narrative 02/15/2025 10:47 AM EDT ? [facility] ?[address] ?[place] [address] ?XRay Report ? Signed ? Patient: Kiniel,Itsha ?MR#: [id number] ?? 61 ? : 1970 ?Acct:[id number] ? Age/Sex: 54 / F ?ADM Date: 02/11/25 ? Loc: HO.[facility]C ?478-1 ? Attending Dr: Mario Hoyt MD ? Ordering Physician: Rose Michelle PA-C ?? Date of Service: 02/15/25 ?? Procedure(s): XR chest 1V ?? Accession Number(s): [id number] ? cc: Linda Murphy DO; Rose Michelle [...] Lei MD ??02/15/2025 10:43 AM EDT RP ?? [facility]: [id number] ? Dictated By: ?Lexa Lei MD ? Signed By: ?<Electronically signed by Lexa Lei MD in OV> ?02/15/25 1043 ? DD/ 1010 ? TD/TT: 02/15/25 1034 ? Medical Claims Assistant: ? Procedure Note Elena Roth - 02/15/2025 [facility] [address] [place] [address] XRay Report Signed [id number] 61 : 1970Acct:[id number] Age/Sex: 54 / FADM Date: 02/11/25 Loc: [facility] 478-[address]: Mario Hoyt MD Ordering Physician: Rose Michelle PA-C Date of Service: 02/15/25 Procedure(s): XR chest 1V Accession Number(s): [id number] cc: Linda Murphy DO; Roes Michelle PA-C EXAMINATION: XR CHEST CLINICAL INFORMATION: [...] 02/15/25 1043 DD/ 1010 TD/TT: 02/15/25 1034 Medical Claims Assistant: [facility] External Provider IMG XR PROCEDURES Final Result * (ABNORMAL) Glucose, Whole Blood (02/11/2025 6:35 AM EDT) Only the most recent of4 resultswithin the time period is included. Glucose, Whole Blood 152(H) 60 - 115 mg/dL [facility] Comment:METER #: [id number] 02/11/2025 6:35 AM EDT 02/11/2025 6:39 AM EDT us Generic External Data Provider LAB BLOOD ORDERAB LES Final Result Performing Organization Address [facility] de Phone Number [facility] [address] [place] [address] [phone] * Type and screen (02/01/2025 11:11 AM EDT) Blood Type ON [facility] Antibody Screen NEGATIVE [facility] 02/01/2025 11:1 1 AM EDT 02/01/2025 11:28 AM EDT Narrative [facility] - 02/01/2025 12:04 PM EDT Spec expiration changed by SHIRLEY on 02/01/25Reason: PATWITNESSED BY SAVIING:Call Blood Bank (ext. [phone]) to band patient on admission.Type and Screen in effect until 2300 on 02/11/25. us Generic External Data Provider LAB BLOOD BANK TE ST ORDERABLES Final Result Performing Organization Address [facility] de Phone Number [facility] [address] [place] [address] [phone] * XR Chest 2 Views (01/20/2025 11:30 AM EDT) Anatomical Region Laterality Modality Chest Radiographic Rosaura ging 01/20/2025 11:3 0 AM EDT Narrative 01/20/2025 11:50 AM EDT ? [facility] ?[address] ?[place] [address] ?XRay Report ? Signed ? Patient: Sara,Tisha ?MR#: [id number] ?? 61 ? : 1970 ?Acct:[id number] ? Age/Sex: 54 / F ?ADM Date: 03/12/25 ? Loc: HO.XRAY ? Attending Dr: Geneva Candelario MD ? Ordering Physician: Linda Murphy DO ?? Date of Service: 01/20/25 ?? Procedure(s): XR chest 2V ?? Accession Number(s): [id number] ? cc: Linda Murphy DO ? EXAMINATION: [...] DD/ 1130 ? TD/TT: 01/20/25 1140 ? Medical Claims Assistant: ? Procedure Note Donkatlynter, Image - 01/20/2025 [place] [address] XRay Report Signed Patient: Ayanna RuiznMR#: [id number] 61 : 1970Acct:[id number] Age/Sex: 54 / FADM Date: 01/20/25 Loc: [facility] Attending Dr: Geneva Candelario MD Ordering Physician: Linda Murphy DO Date of Service: 01/20/25 Procedure(s): XR chest 2V Accession Number(s): [id number] cc: Linda Murphy DO EXAMINATION: XR CHEST [...] 01/20/25 1148 DD/ 1130 TD/TT: 01/20/25 1140 Medical Claims Assistant: us Linda Murphy DO IMG XR PROCEDURES Final Resu lt * (ABNORMAL) Partial Thromboplastin Time, Activated (APTT) (01/20/2025 11:26 AM EDT) Only the most recent of2 resultswithin the time period is included. Partial Thromboplastin Time 44.2(H) 26.0 - 36.8 SEC [facility] Comment:For information rega rding the monitoring of direct thrombininhibitors, please refer to Pharmacy. Blood Venous blood specimen / Unknown 01/20/2025 11:26 AM EDT 01/20/2025 11:26 AM EDT us Linda Murphy DO LAB BLOOD ORDERABLES Final R esult [facility] [address] [place] [phone] * (ABNORMAL) Prothrombin Time-INR (01/20/2025 11:26 AM EDT) Only the most recent of2 resultswithin the time period is included. Prothrombin Time 10.1(L) 10.9 - 12.4 SEC [facility] INTERNATIONAL NORM RATIO 0.9 0.9 - 1.1 [facility] Comment:INTERNATIONAL NORMAL IZED RATIO (INR) [...] ORDERABLES Final R esult Performing Organization Address City/[facility] Co de Phone Number [facility] [address] [place] [phone] * (ABNORMAL) Basic Metabolic Panel (01/20/2025 11:26 AM EDT) Only the most recent of2 resultswithin the time period is included. Sodium 141 135 - 145 mmol/L [facility] Potassium 4.0 3.3 - 5.1 mmol/L [facility] Chloride 103 96 - 108 mmol/L [facility] Carbon Dioxide 31(H) 22 - 29 mmol/L [facility] Anion Gap 11(L) 12 - 20 [facility] Urea Nitrogen (BUN) 7(L) 9 - 16 mg/dL [facility] Creatinine, Serum 1.07 0.5 - 1.4 mg/dL [facility] Estimated Glomerular Filt Rate 54 [facility] Comment:Chronic Kidney Disea se: Estimated GFR < 60 mL/min/1.30t3Tturvx Kidney Disease: Estimated GFR < 15 mL/min/1.73m2 Glucose 109 60 - 115 mg/dL [facility] Calcium 9.2 8.4 - 10.2 mg/dL [facility] Blood Venous blood specimen / Unknown 01/20/2025 11:26 AM EDT 01/20/2025 11:26 AM EDT Linda Murphy DO LAB BLOOD ORDERABLES Final R esult Performing Organization Address City/[facility]/ZIP Co de Phone Number [facility] [address] [place] [phone] * Gross and Microscopic Level 4 (01/05/2025 10:57 AM EST) 01/05/2025 10:5 7 AM EST 01/05/2025 11:19 AM EST Narrative [facility] - 01/26/2025 8:48 AM EDT ----- ------- Name: Tisha Ruiz ? Age/Sex: 54/F ? : 1970 Unit#: [id number] ?? Attend Dr: Mario Hoyt MD ?Re01/05/25 ?Status: DEP SDC ? Location: HO.SSS ?Disch: ? ----- ------- SPEC : [id number] ?RECD: 01/05/25-1118 ? STATUS: ??SOUT ? REQ NUM: [id number] ? HILARY: 01/05/25-1056 ? SUBM DR: Rogelio Sales ? ENTERED: ??01/05/25-1121 ?SP TYPE: Surgical ? OTHR DR: Linda Murphy DO ?Mario Hoyt MD ORDERED: ??Gross Micro L4, IHC, Add. immunos, Napsin, TTF-1, NSCLC Lung bx ? COMMENTS: Block A (xT/xR Solid Tumor) + 3 unst. slides (PD-L1) sent to ?[facility] on 01/08/25. ?Addendum Addendum ??3 ?Entered: 01/26/2508 [facility] testing: Genomic variants: Biologically Relevant: ? [...] Addendum Signed (signature on file) Anuradha Bhavana 01/26/25 0848 ? ----- ------- Addendum ??2 ?Entered: 01/21/25 [facility] testing: ? PD-L1 expression (22C3 clone): ?Positive - High Tumor proportion score (TPS): 85% Combined positive score (CPS): 90 ? CONTINUED ON NEXT PAGE ----- ------- Name: Tisha Ruiz ? Age/Sex: 54/F ? : 1970 Unit#: [id number] ?? Attend Dr: Mario Hoyt MD ?Re01/05/25 ?Status: DEP SDC ? Location: HO.SSS ?Disch: ? ----- ------- SPEC : [id number] ?RECD: 01/05/25-1119 ? STATUS: ??SOUT ? REQ NUM: [id number] ? HILARY: 01/05/25-1057 ? SUBM DR: Rogelio [...] 0914 ? ----- ------- Addendum ??1 ?Entered: 01/07/25140 Immunostains show the tumor is positive for [...] ? Age/Sex: 54/F ? : 1970 Unit#: [id number] ?? Attend Dr: Mario Hoyt MD ?Re01/05/25 ?Status: DEP SDC ? Location: HO.SSS ?Disch: ? ----- ------- SPEC : [id number] ?RECD: 01/05/25-1118 ? STATUS: ??SOUT ? REQ NUM: [id number] ? HILARY: 01/05/25-1056 ? SUBM DR: Rogelio [...] Copies To: ?? Linda Murphy DO ?? [facility] ?? [address] ?? [place] ?? [phone] ?? Mario Hoyt MD ?? [facility] ?? [address] ?? [place] ?? [phone] ?? [email or web address] ?? Rogelio Sales ?? [address] ?? [place] ?? [phone] ?? [email or web address] ------- Signed (signature on file) Anuradha [place] 01/06/25 1718 ? ----- ------- ? END OF REPORT ? us Generic External Data Provider LAB CYTOLOGY ORDE RABLES Final Result [facility] [address] [place] [address] [phone] * CT Biopsy Lung Left (01/05/2025 10:18 AM EST) Anatomical Region Laterality Modality Computed Tomogra phy 01/05/2025 10:1 8 AM EST Narrative 01/06/2025 2:23 PM EST ? [facility] ?[address] ?[place] [address] ? CT Scan Report ? Signed ? Patient: Tisha Ruiz ?MR#: [id number] ?? 61 ? : 1970 ?Acct:[id number] ? Age/Sex: 54 / F ?ADM Date: 02/25/25 ? Loc: HO.SSS ? Attending Dr: Mario Hoyt MD ? Ordering Physician: Mario Hoyt MD ?? Date of Service: 01/05/25 ?? Procedure(s): CT biopsy lung LT ?? Accession Number(s): [id number] ? cc: Linda Murphy DO; Mario Hoyt MD ? Report Number: ?? [id number]: Total DLP = ??490.00 mGy-cm ?? 54-year-old [...] DD/ 1018 ? TD/TT: 01/05/25 1119 ? Medical Claims Assistant: ? Procedure Note [place], Image - 01/06/[address] [place] [address] [address] Scan Report Signed Patient: Ayanna RuiznMR#: [id number] 61 : 1970Acct:[id number] Age/Sex: 54 / FADM Date: 01/05/25 Loc: [facility] Attending Dr: Mario Hoyt MD Ordering Physician: Mario Hoyt MD Date of Service: 01/05/25 Procedure(s): CT biopsy lung LT Accession Number(s): [id number] cc: Linda Murphy DO; Mario Hoyt MD Report Number: [id number]: Total DLP = 490.00 mGy-cm 54-year-old female [...] 01/06/25 1423 DD/ 1018 TD/TT: 01/05/25 1119 Medical Claims Assistant: [facility] External Provider IMG CT PROCEDURES Final Result * (ABNORMAL) Urinalysis, Complete, with Reflex to Culture (12/06/2024 12:50 PM EST) Color Urine Yellow [facility] Appearance Urine Clear [facility] PH 7.5 5.0 - 9.0 [facility] Glucose Urine UA Negative Negative mg/dL [facility] Urine Blood Negative Negative [facility] Specific Pablo - Urine 1.015 1.005 - 1.025 [facility] Urine Protein Trace Neg-Trace mg/dL [facility] Urine Ketones Negative Negative mg/dL [facility] Nitrite Urine Negative Negative [facility] Leukocyte Esterase Urine Small (1+)(A) Negative [facility] RBC Urine 0-2 0 - 2 /HPF [facility] Urine WBC 11-20(A) 0 - 5 /HPF [facility] Urine Squamous Epithelial Cell 0-2 0 - 2 /HPF [facility] Urine Bacteria Trace None Seen [facility] Hyaline Casts, Urine 0-2 0 - 2 /LPF [facility] 12/06/2024 12:5 0 PM EST 12/06/2024 1:03 PM EST Narrative [facility] - 12/06/2024 1:24 PM EST Urine, Clean Catch us Generic External Data Provider LAB URINE ORDERAB LES Final Result [facility] [address] [place] [address] [phone] * SARS-CoV-2 RNA, Influenza A/B, and RSV RNA, Ql NAAT (12/06/2024 12:50 PM EST) Influenza A PCR NEGATIVE Negative [facility] Influenza B PCR NEGATIVE Negative [facility] Resp Syncy Virus RNA Qual PCR NEGATIVE Negative [facility] SARS COV2 PCR NEGATIVE Negative [facility] Comment:All test results mus t [...] use by authorized laboratories.Testing performed on the [employer] GeneXpert utilizingreal-time RT-PCR.All SARS CoV2 and positive influenza A/B results arereported to [facility]. 12/06/2024 12:5 0 PM EST 12/06/2024 1:03 PM EST Generic External Data Provider LAB MICROBIOLOGY - GENERAL ORDERABLES Final Result Performing Organization Address [facility] Co de Phone Number [facility] [address] [place] [phone] * (ABNORMAL) Hepatic Function Panel (12/06/2024 12:50 PM EST) Bilirubin, Total 0.2 0.0 - 1.0 mg/dL [facility] Bilirubin, Direct <0.2 0.0 - 0.5 mg/dL [facility] Aspartate Amino Transferase 23 5 - 31 U/L [facility] Alanine Aminotransferase 26 0 - 31 U/L [facility] Total Protein 8.1(H) 6.5 - 8.0 g/dL [facility] Albumin Level 4.4 3.5 - 5.0 g/dL [facility] Alkaline Phosphatase 92 39 - 117 U/L [facility] 12/06/2024 12:5 0 PM EST 12/06/2024 1:03 PM EST Home Inventory S[pecialists External Data Provider LAB BLOOD ORDERAB LES Final Result Performing Organization Address [facility] Co de Phone Number [facility] [address] [place] [phone] * Culture, Urine, Routine (12/06/2024 12:00 AM EST) Urine Urine specimen obtained by clean catch procedure / Unknown 12/06/2024 12/06/2024 Comment:UACC Narrative [facility] - 12/07/2024 8:13 AM EST Urine Culture Report Result Urine Culture 50,000 to 100,000 cfu/ml Urine Culture Mixed bacterial cabrera characteristic of Urine Culture urogenital contamination. Specimen Source: Urine clean catch us Generic External Data Provider LAB MICROBIOLOGY - GENERAL ORDERABLES Final Result Performing Organization Address City/[facility]/ZIP Co de Phone Number [facility] [address] [place] [phone] * Albumin, Random Urine W/Creatinine (08/13/2024 3:30 PM EDT) Creatinine, Urine 21.51 mg/dL [facility] Microalbumin Urine <5.0 mg/L [facility] Microalbum Creatinine Ratio Ur TNP <30 ug/mg cr [facility] Comment:Unable to calculate albumin/creatinine ratio due to lowmicroalbumin or creatinine result. Urine (Urine, Random) 08/13/2024 3:30 PM EDT 08/13/2024 3:38 PM EDT us Linda Murphy DO LAB URINE ORDERABLES Final R esult Performing Organization Address [facility] Co de Phone Number [facility] [address] [place] [phone] * (ABNORMAL) Lipid Panel, Standard (08/13/2024 3:26 PM EDT) Triglycerides 257(H) <150 mg/dL [facility] Comment:Desirable Triglyceri de: less than 150 mg/dLBorderline High Triglyceride 150-199 mg/dLHigh Triglyceride: 200-499 mg/dLVery High Triglyceride: greater than or equal to 5OO mg/dL Cholesterol 151 <200 mg/dL [facility] Comment:Desirable Cholestero l: less than 200 mg/dLBorderline High Cholesterol: 200-239 mg/dLHigh Cholesterol: greater than 239 mg/dL LDL Cholesterol Calculated 61 <100 mg/dL [facility] Comment:Desirable LDL: less than 100 mg/dLNear Optimal/Above Optimal LDL: 110- 129 mg/dLBorderline High LDL: 130-159 mg/dLHigh LDL: 160-189 mg/dLVery High LDL: greater than or equal to 190 mg/dL HDL Cholesterol 39(L) >40 mg/dL [facility] Comment:Desirable HDL: great er than 40 mg/dL Note: This HDL assay may give artificially low results in patients with liver disease. Blood Venous blood specimen / Unknown 08/13/2024 3:26 PM EDT 08/13/2024 3:26 PM EDT Linda Murphy DO LAB BLOOD ORDERABLES Final R esult Performing Organization Address [facility] Co de Phone Number [facility] [address] [place] [phone] * HIV Ab/Ag ([facility]) (08/26/2023 2:47 PM EDT) [facility] HIV AB/AG Nonreactive Nonreactive [facility] Comment:HIV-1 p24 Ag and/or HIV-1/HIV-2 Ab not detected.A test result that is nonreactive does not exclude thepossibility of exposure to or infection with HIV-1 and/orHIV-2. Nonreactive results in this assay for individualswith prior exposure to HIV-1 and/or HIV-2 may be due toantigen and antibody levels that are below the limit ofdetection of this assay.The [employer] HIV Ag/Ab Combo assay result andsupplemental assay results should be interpreted inconjunction with the patient's clinical presentation,history and other laboratory results. If the results areinconsistent with clinical evidence, additional testing issuggested to confirm the result. 08/26/2023 2:47 PM EDT 08/26/2023 2:47 PM EDT Linda Murphy DO LAB BLOOD ORDERABLES Final R esult Performing Organization Address City/[facility] Co de Phone Number [facility] [address] [place] [address] [phone] * Hepatitis C Antibody with Reflex to HCV, RNA, Quantitative, Real-Time PCR (08/26/2023 2:47 PM EDT) Hepatitis C Antibody Nonreactive Nonreactive [facility] Comment:Antibodies to HCV no t detected; does not exclude early acuteHCV infection. 08/26/2023 2:47 PM EDT 08/26/2023 2:47 PM EDT us Linda Murphy DO LAB BLOOD ORDERABLES Final R esult Performing Organization Address City/[facility]/ZIP Co de Phone Number [facility] [address] [place] [address] [phone] * HPV E6/E7 RFLX LUIS 16 18/45 (05/21/2022 3:45 PM EDT) Pathologist [facility] HPV mRNA E6/E7 rflx Not Detected Not Detected [facility] Comment: Methodology: Senior Web Analyst-Mediated Amplification This assay detects E6/E7 viral messenger RNA (mRNA) from 14 high-risk HPV types (16,18,31,33,35,39,45,51,52,56,58,59,66,68). Cervical sources are required for HPV testing. If a vaginal source from a patient who has had a total hysterectomy with removal of cervix was submitted, please contact the testing laboratory for alternative testing options. For additional information, please refer to http://education.[employer]/faq/LAM873x0 (This link if provided for information/ educational purposes only.) THIS TEST WAS PERFORMED AT: [facility] (P) [address] [place] [address] [address] [place], [place] ??[phone] VALERIA DURANT MD 05/21/2022 3:45 PM EDT us Fercho Palmer MD HISTORICAL/NON ORDERABLE LABS Fi nal Result Performing Organization Address City/[facility]/ZIP Co de Phone Number [facility] [place] [address], * Pap Smear (02/15/2022 12:00 AM EDT) Swab Linda Murphy DO LAB CYTOLOGY ORDERABLES Ce baer Result [facility] [address], [place] [address] * DIGITAL BILATERAL SCREEN 1 (04/01/2019 2:56 [...] Most Recently Relevant to Health Maintenance Insurance [facility] < [address] [place] [id number] [employer] Care Teams Interior Designer Relationship Specialty Start Date End Date Linda Murphy DO [address] [place] [address] PCP - General Family Medicine 11/24/12
--- OUTSIDE RECORDS SUMMARY | 2025-03-02 11:36 | XMS_ITS | Encounter Summary ---
Author Organization [employer] Address [address] [facility] 7t [place] [address] Care Team Providers Care Hand Sample Maker Name Role Phone Linda Murphy DO Primary Care Provider [phone] Reason for Visit * Reason Onset Date Comments REGISTRATION FORM 02/26/2025 Encounter Details Date Type Department Care Team ([facility] st Contact Info) Description 02/26/2025 Telephone [facility] MEDICINE [address] [place] [address] Linda Murphy DO [address] [place] [address] REGISTRATION FORM Social History Tobacco Use Types Packs/Day Years [...] encounter Miscellaneous Notes * Telephone Encounter - Alicia Bautista - 02/26/2025 10:29 AM EDT Patient REFUSED to fill out registration form, states form was filled out 01/27/25. Last Registration form scanned in the system was on 01/28/24. documented in this encounter Plan of Treatment [...] documented as of this encounter Care Teams Hand Sample Maker Relationship Specialty Start Date End Date Linda Murphy DO [address] [place] [address] PCP - General Family Medicine 11/24/12 documented as of this encounter
--- OUTSIDE RECORDS SUMMARY | 2025-03-02 11:36 | XMS_ITS | Encounter Summary ---
Author Organization [employer] Address [address] [facility] 7t [place] [address] Care Team Providers Care Automatic Transmission Mechanic Name Role Phone Linda Murphy DO Primary Care Provider [phone] DelNeri zavala PharmD Unavailable Unavail able Antionette Murphy PharmD Unavailable Reason for Visit * Reason Onset Date Comments letter michael lopez 07/26/2023 Encounter Details Date Type Department Care Team (Late st Contact Info) Description 07/26/2023 Telephone [facility] MEDICINE [address] [place] [address] Linda Murphy DO [address] [place] [address] letter michael lopez Social History Tobacco Use [...] to Medical side. Please contact pt at [phone] documented in this encounter Plan of Treatment [...] documented as of this encounter Care Teams Automatic Transmission Mechanic Relationship Specialty Start Date End Date Linda Murphy DO [address] [place] [address] PCP - General Family Medicine 11/24/12 Neri Yang, PharmD [address] [place] [address] Pharmacist Internal Medicine 11/23/22 10/17/23 Antionette Murphy PharmD [address] [place] [address] Pharmacist Internal Medicine 07/15/24 02/25/25 documented as of this encounter
--- OUTSIDE RECORDS SUMMARY | 2025-03-02 11:36 | XMS_ITS | Encounter Summary ---
Author Organization [employer] Address [address] [facility] [address] 7t [place] [address] Care Team Providers Care It Network Engineer Name Role Phone Linda Murphy DO Primary Care Provider DelNeri zavala PharmD Unavailable Unavail able Antionette Murphy PharmD Unavailable Reason for Visit * Reason Onset Date Comments Letter for School/Work 03/07/2023 Encounter Details Date Type Department Care Team ([facility] st Contact Info) Description 03/07/2023 Telephone [facility] MEDICINE [address] [place] [address] Linda Murphy DO [address] [place] [address] Letter for School/Work Social History Tobacco Use [...] mailed due to COVID Please contact at [phone] documented in this encounter Plan of Treatment [...] documented as of this encounter Care Teams It Network Engineer Relationship Specialty Start Date End Date Linda Murphy DO [address] [place] [address] PCP - General Family Medicine 11/24/12 Neri Yang, PharmD [address] [place] [address] Pharmacist Internal Medicine 11/23/22 10/17/23 Antionette Murphy PharmD [address] [place] [address] Pharmacist Internal Medicine 07/15/24 02/25/25 documented as of this encounter
--- OUTSIDE RECORDS SUMMARY | 2025-03-02 11:36 | XMS_ITS | Clinical Summary ---
Author Organization [address] [facility] Address [address] [place] [address] Phone Care Team Providers Care Piano And Organ Refinisher Name Role Phone Lvelian Linda Juanito RAMESH Primary Care Provider [phone] Allergies No known active allergies Medications acetaminophen [...] Diagnosed Date Allergic rhinitis 12/22/2024 Bipolar disorder (CMS/[facility] V24, CMS/[facility] V28) 12/12 DANIEL (obstructive sleep apnea) 12/22/2024 Hyperlipidemia 12/22/2024 Type 2 diabetes mellitus ([facility] V24, [facility] V 28) 12/22/2024 Fatty liver 12/22/2024 Status post thyroidectomy 12/22/2024 Hx of papillary thyroid carcinoma 12/22/2024 GERD (gastroesophageal reflux disease) Chronic low back pain 12/22/2024 Leukocytosis 12/22/2024 Toenail avulsion 12/22/2024 Plantar callus 12/22/2024 Onychomycosis 12/22/2024 Encounters Date Type Department Care Team Description 12/29/2024 1:45 PM EST Office Visit Orthopedic Surgery [place] [address] [phone] Gutierrez Ruiz DPM Controlled type 2 diabetes with neuropathy ([facility] V24, [facility] V28) (Primary Dx); Metatarsalgia of right foot; [...] 9:15 AM EDT Office Visit Orthopedic Surgery [facility] [address] [phone] Gutierrez Ruiz DPM [address] [address] Health Maintenance Due Date Last Done Comments Diabetes: Annual Foot Exam 1982 Diabetes: Annual Retina Eye Exam 1982 Breast Cancer Screening 04/01/2021 04/01/2019 Colorectal Cancer Screening: Colonoscopy 09/24/2024 Depression Screening 09/24/2024 02/26/2023 HIV Screening 09/24/2024 Social Influencers of Health Screening 09/24/2024 Diabetes: Annual Urine Albumin-Creatinine Ratio (uACR) 12/23/2024 Diabetes: Blood Sugar Control Test (HGBA1C) 02/11/2025 08/13/2024 Cervical Cancer Screening: Pap Smear 02/15/2025 02/15/2022 COVID-19 Vaccine (7 - Moderna risk season) 2025 10/06/2024, 07/22/2023, 08/24/2022, Additional history exists Diabetes: Annual GFR (Glomerular Filtration Rate) 12/06/2025 [...] Completed 08/26/2024, , 08/24/2022, Additional history exists HIB Vaccines Aged [...] patient's age to complete this topic Insurance [facility] Member Subscriber Plan / Payer (Ef fective 2013-Present) Name:Tisha Ruiz Relation to Subscriber:Self Name:Tisha Ruiz Payer ID:[id number] Group ID:[id number] Type:Not on file Address: [place] [address] [place] [id number] Care Teams Piano And Organ Refinisher Relationship Specialty Start Date End Date Linda Murphy DO [address] [place], [place] PCP - General Internal Medicine 04/09/19
--- OUTSIDE RECORDS SUMMARY | 2025-03-02 11:36 | XMS_ITS | Encounter Summary ---
Author Organization [employer] Address [address] [facility] 7t [place] [address] Care Team Providers Care Leather Sorter Name Role Phone Linda Murphy DO Primary Care Provider [phone] Antionette Murphy PharmD Unavailable [phone] Reason for Visit * Reason Comments Med Refill Encounter Details Date Type Department Care Team ([facility] st Contact Info) Description 07/03/2024 Refill [facility] MEDICINE [address] [place] [address] Linda Murphy DO [address] [place] [address] Tobacco dependence Social History Tobacco Use Types [...] documented as of this encounter Care Teams Leather Sorter Relationship Specialty Start Date End Date Linda Murphy DO [address] [place] [address] PCP - General Family Medicine 11/24/12 Antionette Murphy PharmD [address] [place] [address] Pharmacist Internal Medicine 07/15/24 02/25/25 documented as of this encounter
--- OUTSIDE RECORDS SUMMARY | 2025-03-02 11:37 | XMS_ITS | Encounter Summary ---
Author Organization [employer] Address [address] [facility] 7t [place] [address] Care Team Providers Care Music Minister Name Role Phone Linda Murphy DO Primary Care Provider [phone] Antionette Murphy PharmD Unavailable [phone] Reason for Visit * Reason Comments Med Refill Encounter Details Date Type Department Care Team ([facility] st Contact Info) Description 11/24/2023 Refill [facility] MEDICINE [address] [place] [address] Linda Murphy DO [address] [place] [address] Social History Tobacco Use Types Packs/Day Years [...] documented as of this encounter Care Teams Music Minister Relationship Specialty Start Date End Date Linda Murphy DO [address] [place] [address] PCP - General Family Medicine 11/24/12 Antionette Murphy PharmD [address] [place] [address] Pharmacist Internal Medicine 07/15/24 02/25/25 documented as of this encounter
--- OUTSIDE RECORDS SUMMARY | 2025-03-02 11:37 | XMS_ITS | Encounter Summary ---
Author Organization [employer] Address [address] [facility] [address] [place] [address] Care Team Providers Care Airport Attendant Name Role Phone Linda Murphy DO Primary Care Provider [phone] Antionette Murphy PharmD Unavailable [phone] Reason for Visit * Reason Onset Date Comments Med Refill 12/18/2024 Encounter Details Date Type Department Care Team (Late st Contact Info) Description 12/18/2024 Refill [facility] [address] [place] [address] Linda Murphy DO [address] [place] [address] Acute post-traumatic headache, not intractable; Chronic obstructive [...] documented as of this encounter Care Teams Airport Attendant Relationship Specialty Start Date End Date Linda Murphy DO [address] [place] [address] PCP - General Family Medicine 11/24/12 Antionette Murphy PharmD [address] [place] [address] Pharmacist Internal Medicine 07/15/24 02/25/25 documented as of this encounter
--- OUTSIDE RECORDS SUMMARY | 2025-03-02 11:37 | XMS_ITS | Encounter Summary ---
Author Organization [employer] Address 75 [facility] 7t [place] [address] Care Team Providers Care Senior Computer Specialist Name Role Phone Linda Murphy DO Primary Care Provider [phone] Antionette Murphy PharmD Unavailable [phone] Reason for Visit * Reason Onset Date Comments Med Refill 12/18/2024 Encounter Details Date Type Department Care Team (Late st Contact Info) Description 12/18/2024 Refill [facility] [address] [place] [address] Linda Murphy DO [address] [place] [address] Social History Tobacco Use Types Packs/Day Years [...] as of this encounter Care Teams Senior Computer Specialist Relationship Specialty Start Date End Date Linda Murphy DO [address] [place] [address] PCP - General Family Medicine 11/24/12 Antionette Murphy PharmD [address] [place] [address] Pharmacist Internal Medicine 07/15/24 02/25/25 documented as of this encounter
--- OUTSIDE RECORDS SUMMARY | 2025-03-02 11:37 | XMS_ITS | Encounter Summary ---
Author Organization [employer] Address 75 [facility] 7t [place] [address] Care Team Providers Care Character Actress Name Role Phone Linda Murphy DO Primary Care Provider [phone] Antionette Murphy PharmD Unavailable [phone] Reason for Visit * Reason Onset Date Comments Durable Medical Equipment 03/06/2024 Encounter Details Date Type Department Care Team ([facility] st Contact Info) Description 03/06/2024 Telephone [facility] MED[facility]INE [address] [place] [address] Linda Murphy DO [address] [place] [address] Durable Medical Equipment Social History Tobacco Use [...] documented as of this encounter Care Teams Character Actress Relationship Specialty Start Date End Date Linda Murphy DO [address] [place] [address] PCP - General Family Medicine 11/24/12 Antionette Murphy PharmD [address] [place] [address] Pharmacist Internal Medicine 07/15/24 02/25/25 documented as of this encounter
--- OUTSIDE RECORDS SUMMARY | 2025-03-02 11:37 | XMS_ITS | Encounter Summary ---
Author Organization [employer] Address [address] [facility] [address] 7t [place] [address] Care Team Providers Care Associate Loan Officer Name Role Phone Linda Murphy DO Primary Care Provider [phone] Antionette Murphy PharmD Unavailable [phone] Reason for Visit * Reason Comments Med Refill Encounter Details Date Type Department Care Team (Late st Contact Info) Description 02/11/2025 Refill [facility] MED & PEDS [address] [place] [address] Linda Murphy DO [address] [place] [address] Chronic low back pain, unspecified back pain [...] 6.3(03/02/2025 10:29 AM EDT) No Neri Yang, EricD documented as of this encounter Visit Diagnoses Diagnosis Chronic low back pain, unspecified back pain laterality, unspecified whether sciatica present documented in this encounter Additional Health Concerns Assessment Noted Time PHQ-9 Depression Total Score: 0 01/20/20 25 12:15 PM EDT documented as of this encounter Care Teams Associate Loan Officer Relationship Specialty Start Date End Date Linda Murphy DO [address] [place] [address] PCP - General Family Medicine 11/24/12 Antionette Murphy PharmD [address] [place] [address] Pharmacist Internal Medicine 07/15/24 02/25/25 documented as of this encounter
--- OUTSIDE RECORDS SUMMARY | 2025-03-02 11:37 | XMS_ITS | Encounter Summary ---
Author Organization [employer] Address [address] [facility] 7t [place] [address] Care Team Providers Care Frozen Food Department Manager Name Role Phone Linda Murphy DO Primary Care Provider [phone] Dellogla Neri PharmD Unavailable Unavail able Antionette Murphy PharmD Unavailable Reason for Visit * Reason Onset Date Comments triage 11/14/2022 Encounter Details Date Type Department Care Team (Late st Contact Info) Description 11/14/2022 Telephone [facility]INE [address] [place] [address] Linda Murphy DO [address] [place], [place] [phone] triage Social History Tobacco Use Types Packs/Day [...] call Pt reports seen in [facility] today. Pt reports bruising on bilateral [...] on file documented as of this encounter Visit Diagnoses Not on filedocumented in this encounter Care Teams Frozen Food Department Manager Relationship Specialty Start Date End Date Linda Murphy DO [address] [place] [address] PCP - General Family Medicine 11/24/12 Neri Yang PharmD [address] [place] [address] Pharmacist Internal Medicine 11/23/22 10/17/23 Antionette Murphy PharmD [address] [place] [address] Pharmacist Internal Medicine 07/15/24 02/25/25 documented as of this encounter
[2025-03-02 12:17] LABS: Free T4 (Free Thyroxine) 1.35 ng/dL (0.71-1.85); Thyroid Stimulating Hormone 14.79 uIU/mL (0.32-4.0)
[2025-03-02 12:22] LABS: Alanine Aminotransferase 22 U/L (0-31); Alkaline Phosphatase 121 U/L (39-117); Anion Gap 12 (12-20); Aspartate Amino Transferase 21 U/L (5-31); Bilirubin Direct 0.1 mg/dL (0.0-0.5); Bilirubin Total 0.3 mg/dL (0.0-1.0); Blood Urea Nitrogen 9 mg/dL (9-16); Calcium 9.1 mg/dL (8.4-10.2); Carbon Dioxide 28 mmol/L (22-29); Chloride 102 mmol/L (96-108); Cholesterol 137 mg/dL (<200); Estimated Glomerular Filt Rate 53; Ferritin 241 ng/mL (10-250); Free T4 (Free Thyroxine) 1.31 ng/dL (0.71-1.85); Glucose Random 198 mg/dL (60-115); HDL Cholesterol 43 mg/dL (>40); Iron 28 mcg/dL (30-160); LDL Cholesterol Calculated 65 mg/dL (<100); Percent Iron Saturation 11 % (15-50); Potassium 4.2 mmol/L (3.3-5.1); Sodium 138 mmol/L (135-145); Thyroid Stimulating Hormone 15.05 uIU/mL (0.32-4.0); Total Iron Binding Capacity 251 mcg/dL (228-428); Total Protein 7.3 g/dL (6.5-8.0); Triglycerides 147 mg/dL (<150); Unsaturated Iron Binding 223 ug/dL
[2025-03-02 12:24] LABS: Folate 11.2 ng/mL (> or = 4.0); Vitamin B12 364 pg/mL (200-900)
[2025-03-03 20:48] LABS: Thyroglobulin 0.2 ng/mL; Thyroglobulin Antibodies <1 IU/mL (< or = 1)
[2025-03-06 06:03] LABS: Thyroglobulin Antibody <1 IU/mL (<=1); Thyroglobulin Level 0.2 ng/mL
== END 2025-03-02 10:09 | disposition home or self-care (01) ==
LOC: HO.LAB 10:08
PROVIDERS: Absent Provider Student in an Organized Health Care Education/Training Program; PCP Family Medicine; Visit Provider Family Medicine
DX: E89.0 Postprocedural hypothyroidism (principal); Z85.850 Personal history of malignant neoplasm of thyroid; E11.9 Type 2 diabetes mellitus without complications; L72.0 Epidermal cyst; D64.9 Anemia, unspecified; Z90.2 Acquired absence of lung [part of]; C34.92 Malignant neoplasm of unspecified part of left bronchus or lung
CPT/HCPCS: 36415; 80048; 80061; 80076; 82306; 82607; 82728; 82746; 83036; 83540; 84432; 84439; 84443; 85025; 86800

== ENCOUNTER 2025-03-16 10:07 | Outpatient (AMB) | payer OTHER, SELFPAY ==
--- NOTE | 2025-03-16 10:09 | MHC.OFFVIS ---
Vital Signs 03/16/25 10:20 Height 5 ft 7.75 in Weight 211 lb BMI 32.3 BP 118/57 L Blood Pressure Location Rt brachial Position Sitting Pulse 93 Intake Visit Reasons: S/P VATS, Lt lower lobectomy, bronchoscopy Intake Note: Patient here s/pLt lower lobectomy. Last office visit with Dr. Hoyt 02-23-2025. Reports incisions healing well. Patient c/o:steri strips fell off but adhesive still present. No longer smoking. Taking Tylenol as needed. Surgery: 02-11-2025 Employment Recruiter Required: No Accompanied by: Self / Same As Patient Allergies oxycodone [Percocet] Allergy (Intermediate, Verified 03/16/25 10:18) stomach pain SEASONAL ALLERGIES Allergy (Unknown, Uncoded 03/16/25 10:18) UNKNOWN HPI Comments Details: Patient presents for follow up. She underwent bronchoscopy, vats left lower lobectomy, mediastinal lymph node sampling on 02/11/[address] Hoyt. Patient tolerated procedure well. She reports overall feeling well and denies any significant pain. She occasionally has some mild burning of left lateral chest at her lowest incision into LUQ abdomen which is managed with tylenol. She quit smoking prior to her procedure and has not smoked since. She reports increasing energy. She is eating without difficulty and moving her bowels. She is wondering about increasing activity and further follow up. [facility] Medical History (Updated 02/26/25 @ 08:49 by Kimberlyn Spangler PA-C) Primary malignant neoplasm of left lower lobe of lung History of thyroid cancer Hx of radiation therapy Postoperative hypothyroidism Sciatica of right side Back pain Arthritis Anemia Anxiety On home oxygen therapy Incomplete right bundle branch block (RBBB) Uterine fibroid DANIEL (obstructive sleep apnea) Cervical cancer Schizoaffective disorder Pancreatitis Type 2 diabetes mellitus JESICA positive Vitamin D deficiency Morbid obesity Sacroiliitis Multinodular goiter HLD (hyperlipidemia) COPD (chronic obstructive pulmonary disease) GERD (gastroesophageal reflux disease) Bipolar 1 disorder Hypercalcemia Goiter Surgical History (Updated 02/26/25 @ 08:49 by Kimberlyn Spangler PA-C) History of lobectomy of lung History of tubal ligation History of cholecystectomy History of total thyroidectomy Family History Father Bipolar 1 disorder Mother Diabetes mellitus Hypertension Hyperlipidemia COPD (chronic obstructive pulmonary disease) Paternal Aunt Breast cancer Sister Cervical cancer Social History Household Members: Family Household Members Other:: duplex Housing: House Are you a primary managed care director to a significant other at home: No Do you presently have visiting nurse or other home services: No Alcohol intake: never Comment: Pt refusing bed alarm, agrees to ring call raza for assist. 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: Yes (Stress) Female Reproductive History Menstrual Age of Menarche: 15 Review of Systems Const Denies chills and Denies fever(s) ENT Denies dizziness Card Denies chest pain and Denies dyspnea Resp Denies cough and Denies dyspnea GI Denies abdominal pain and Denies constipation Skin/Breast Denies rash Neuro Denies dizziness Physical Exam Vital Signs: Last Vital Signs Pulse 93 03/16/25 10:20 BP 118/57 L 03/16/25 10:20 BMI result Body Mass Index 32.3 Const Orientation/consciousness: patient oriented x3 Chest Other: left VATS incisions well healed, no erythema Resp Effort & Inspection: normal respiratory effort, able to speak in complete sentences and not tachypneic Auscultation: clear to auscultation bilaterally GI Palpation (GI): nontender Skin General skin exam: no rashes or lesions noted Neuro General: patient oriented x3 and moves all extremities Assessment & Plan Assessment & Plan (1) Primary malignant neoplasm of left lower lobe of lung: Comment: (Adenocarcinoma s/p LLL lobectomy 02/2025) Code(s): C34.32 - Malignant neoplasm of lower lobe, left bronchus or lung Category: Medical (2) Status post lobectomy of lung: Code(s): Z90.2 - Acquired absence of lung [part of] Category: Surgical Plan Patient is doing very well 1 month s/p bronchoscopy, vats left lower lobectomy, mediastinal lymph node sampling. Her incisions are well healed and remain clean. She has some mild residual pain likely due to nerve irritation which will hopefully improve over time. She has continued to quit smoking and this was commended. She can begin to gradually increase her activity as tolerated. 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 Will refer to oncology for any possible adjuvant therapy and pulmonology for follow up. She is comfortable with plan, all questions answered. She can follow up as needed. Orders: Referrals Pulmonology Referral C34.32 - Malignant neoplasm of lower lobe, left bronchus or lung Hematology & Oncology Referral C34.32 - Malignant neoplasm of lower lobe, left bronchus or lung Coding Level of Care Code Est Pt Level 3 (33266) Global (10700) Diagnoses Primary malignant neoplasm of left lower lobe of lung C34.32 Status post lobectomy of lung Z90.2
[2025-03-16 10:20] VITALS: BP 118/57; PULSE 93; BMI 32.3
--- OUTSIDE RECORDS SUMMARY | 2025-03-16 11:35 | XMS_ITS | Encounter Summary ---
Author Organization [employer] Address 75 [facility] 7t [place] [address] Care Team Providers Care Requirements Engineer Name Role Phone Linda Murphy DO Primary Care Provider DelNeri zavala PharmD Unavailable Unavail able Antionette Murphy PharmD Unavailable [phone] Reason for Visit * Reason Onset Date Comments Letter for School/Work 03/07/2023 Encounter Details Date Type Department Care Team ([facility] st Contact Info) Description 03/07/2023 Telephone [facility] MED[facility]INE [address] [place] [address] Linda Murphy DO [address] [place] [address] Letter for School/Work Social History Tobacco Use [...] Miscellaneous Notes * Telephone Encounter - Andrzej Curtis 03/07/2023 10:01 AM EDT Tc from pt requesting a letter stating that pt uses oxygen. Pt was transferred to medical records and medical records transfer back. Pt is asking for letter to mailed due to COVID Please contact at [phone] documented in this encounter Plan of Treatment [...] documented as of this encounter Care Teams Requirements Engineer Relationship Specialty Start Date End Date Linda Murphy DO [address] [place] [address] PCP - General Family Medicine 11/24/12 Neri Yang, PharmD [address] [place] [address] Pharmacist Internal Medicine 11/23/22 10/17/23 Antionette Murphy PharmD [address] [place] [address] Pharmacist Internal Medicine 07/15/24 02/25/25 documented as of this encounter
--- OUTSIDE RECORDS SUMMARY | 2025-03-16 11:35 | XMS_ITS | Clinical Summary ---
Author Organization [address] [facility] Address [address] [place] [address] Phone Care Team Providers Care Counter Professional Name Role Phone LvelianJoelleLinda Juanito RAMESH Primary Care Provider [phone] Allergies No known active allergies Medications acetaminophen [...] by mouth 2 (two) times a day. Active clotrimazole (LOTRIMIN) 1 % cream Apply 1 Application topically 2 (two) times a day. Active diclofenac (VOLTAREN) 1 % topical gel Apply 2 g topically 4 (four) times a day. Active ferrous fumarate (Ferrocite) 324 mg (106 mg iron) tablet Take by mouth. Ac tive Active Problems Problem Noted Date Diagnosed Date Allergic rhinitis 12/22/2024 Bipolar disorder (CMS/HCC V24, CMS/HCC V28) 12/12 DANIEL (obstructive sleep apnea) 12/22/2024 Hyperlipidemia 12/22/2024 Type 2 diabetes mellitus ([facility] V24, [facility] V 28) 12/22/2024 Fatty liver 12/22/2024 Status post thyroidectomy 12/22/2024 Hx of papillary thyroid carcinoma 12/22/2024 GERD (gastroesophageal reflux disease) Chronic low back pain 12/22/2024 Leukocytosis 12/22/2024 Toenail avulsion 12/22/2024 Plantar callus 12/22/2024 Onychomycosis 12/22/2024 Encounters Date Type Department Care Team Description 03/04/2025 9:15 AM EDT Office Visit Orthopedic Surgery [place] [address] [address] Gutierrez Ruiz DPM Controlled type 2 diabetes with neuropathy ([facility] V24, [facility] V28) (Primary Dx); Metatarsalgia of right foot; Hammertoes of both feet; Eccrine poroma of foot, left; Dermatophytosis, nail 12/29/2024 1:45 PM EST Office Visit Orthopedic Surgery [facility] [address] [address] Gutierrez Ruiz DPM Controlled type 2 diabetes with neuropathy ([facility] V24, [facility] V28) (Primary Dx); Metatarsalgia of right foot; [...] - - Weight 93.4 kg (206 lb) 03/04/2025 8:59 AM EDT Height 170.2 cm (5' 7.01 ) 03/04/2025 8:59 AM ED T Body Mass Index 32.26 03/04/2025 8:59 AM EDT Plan of Treatment Upcoming Encounters Date Type Department Care Team (Late st Contact Info) Description 05/06/2025 8:30 AM EDT Office Visit Orthopedic Surgery - [place] 250 175 [facility] [address] [place] [address] Gutierrez Ruiz, DPGila [address] [facility] [address] [place] [address] Health Maintenance Due Date Last Done Comments Diabetes: Annual Foot Exam 1982 Diabetes: Annual Retina Eye Exam 1982 Breast Cancer Screening 04/01/2021 04/01/2019 Colorectal Cancer Screening: Colonoscopy 09/24/2024 HIV Screening 09/24/2024 Social Influencers of Health Screening 09/24/2024 Diabetes: Annual Urine Albumin-Creatinine Ratio (uACR) 12/23/2024 Cervical Cancer Screening: Pap Smear 02/15/2025 02/15/2022 COVID-19 Vaccine (7 - Moderna risk ) 04/05/2025 10/06/2024, 07/22/2023, 08/24/2022, Additional history exists Diabetes: Blood Sugar Control Test (HGBA1C) 09/01/2025 03/02/2025, 02/26/2025, 01/27/2025, Additional history exists Depression Screening 01/19/2026 01/19/2025 Diabetes: Annual GFR (Glomerular Filtration Rate) 03/02/2026 03/02/2025, 01/20/2025, 12/06/2024 Cholesterol Screening (Lipid Panel) 03/02/2030 03/02/2025, 08/13/2024 DTaP,Tdap,and Td Vaccines (3 - Td [...] age to complete this topic Insurance [facility] Member Subscriber Plan / Payer (Ef fective 2013-Present) Name:Tisha Ruiz Relation to Subscriber:Self Name:Tisha Ruiz Payer ID:[id number] Group ID:[id number] Type:Not on file Address: [place] [address] [id number] Care Teams Counter Professional Relationship Specialty Start Date End Date Linda Murphy DO [address] [place], [place] PCP - General Internal Medicine 04/09/19
--- OUTSIDE RECORDS SUMMARY | 2025-03-16 11:35 | XMS_ITS | Encounter Summary ---
Author Organization [employer] Address 75 [facility] 7t [place] [address] Care Team Providers Care Variety Lathe Operator Name Role Phone Linda Murphy DO Primary Care Provider Dellogla Neri PharmD Unavailable Unavail able Antionette Murphy PharmD Unavailable Reason for Visit * Reason Comments Med Refill Encounter Details Date Type Department Care Team ([facility] st Contact Info) Description 04/10/2023 Refill [facility] CHC MED & PEDS [address] [place] [address] Linda Murphy DO [address] [facility] [place] [address] Social History Tobacco Use Types Packs/Day Years [...] documented as of this encounter Care Teams Variety Lathe Operator Relationship Specialty Start Date End Date Linda Murphy DO [address] [place] [address] PCP - General Family Medicine 11/24/12 Neri Yang, PharmD [address] [place] [address] Pharmacist Internal Medicine 11/23/22 10/17/23 Antionette Murphy PharmD [address] [place] [address] Pharmacist Internal Medicine 07/15/24 02/25/25 documented as of this encounter
--- OUTSIDE RECORDS SUMMARY | 2025-03-16 11:35 | XMS_ITS | Encounter Summary ---
Author Organization [employer] Address 75 [facility] 7t [place] [address] Care Team Providers Care Business Solutions Director Name Role Phone Linda Murphy DO Primary Care Provider Antionette Murphy PharmD Unavailable [phone] Reason for Visit * Reason Onset Date Comments Medication Question 11/13/2023 Encounter Details Date Type Department Care Team ([facility] st Contact Info) Description 11/13/2023 Telephone [facility] MEDICINE [address] [place] [address] Linda Murphy DO [address] [place] [address] Medication Question Social History Tobacco Use Types [...] 11/08 Physical appointment. Please contact pt at [phone] documented in this encounter Plan of Treatment Not on file documented as of this encounter Goals Goal Patient Goal Type Associated Problems Recent Progress Patient-Stated? Author Hemoglobin A1c < 7 Result Component 6.3(03/02/2025 10:29 AM EDT) No Neri Yang, Kaiden documented as of this encounter Visit Diagnoses Not on filedocumented in this encounter Additional Health Concerns Assessment Noted Time PHQ-9 Depression Total Score: 0 02/27/20 23 11:42 AM EDT documented as of this encounter Care Teams Business Solutions Director Relationship Specialty Start Date End Date Linda Murphy DO [address] [place] [address] PCP - General Family Medicine 11/24/12 Antionette Murphy PharmD [address] [place] [address] Pharmacist Internal Medicine 07/15/24 02/25/25 documented as of this encounter
--- OUTSIDE RECORDS SUMMARY | 2025-03-16 11:35 | XMS_ITS | Encounter Summary ---
Author Organization [employer] Address 75 [facility] 7t [place] [address] Care Team Providers Care Architectural Coating Finisher Name Role Phone Linda Murphy DO Primary Care Provider Antionette Murphy PharmD Unavailable [phone] Reason for Visit * Reason Comments Med Refill Encounter Details Date Type Department Care Team ([facility] st Contact Info) Description 07/03/2024 Refill [facility] MEDICINE [address] [place] [address] Linda Murphy DO [address] [place] [address] Tobacco dependence Social History Tobacco Use Types [...] documented as of this encounter Care Teams Architectural Coating Finisher Relationship Specialty Start Date End Date Linda Murphy DO [address] [place] [address] PCP - General Family Medicine 11/24/12 Antionette Murphy PharmD [address] [place] [address] Pharmacist Internal Medicine 07/15/24 02/25/25 documented as of this encounter
--- OUTSIDE RECORDS SUMMARY | 2025-03-16 11:35 | XMS_ITS | Encounter Summary ---
Author Organization [employer] Address [address] [place] [address] 7t [place] [address] Care Team Providers Care Registered Nurse Cardiovascular Icu Name Role Phone Linda Murphy DO Primary Care Provider DelNeri zavala PharmD Unavailable Unavail able Antionette Murphy PharmD Unavailable Reason for Referral * Imaging (Routine) - Canceled Specialty Diagnoses / Procedures Referred By Contlauren t Referred To Contact Radiology Diagnoses Hilar mass Procedures CT Chest w/o Contrast Nora Astudillo FNP [address] [place] [address] Phone: tel: fax: [address] Phone: tel: fax: Referral ID Status Reason Start Date Expiration Date V isits Requested Visits Authorized [id number] Canceled 10/11/2023 10/10/2024 1 1 Encounter Details Date Type Department Care Team (Late st Contact Info) Description 10/11/2023 Orders Only [facility] CHC MED & PEDS [address] [place] [address] Nora Astudillo FNP [address] [place] [address] Hilar mass (Primary Dx) Social History Tobacco [...] documented as of this encounter Care Teams Registered Nurse Cardiovascular Icu Relationship Specialty Start Date End Date Linda Murphy DO [address] [place] [address] PCP - General Family Medicine 11/24/12 Neri Yang PharmD [address] [place] [address] Pharmacist Internal Medicine 11/23/22 10/17/23 Antionette Murphy PharmD [address] [place] [address] Pharmacist Internal Medicine 07/15/24 02/25/25 documented as of this encounter
--- OUTSIDE RECORDS SUMMARY | 2025-03-16 11:35 | XMS_ITS | Encounter Summary ---
Author Organization [employer] Address 75 [facility] 7t [place] [address] Care Team Providers Care Fitting Room Associate Name Role Phone Linda Murphy DO Primary Care Provider [phone] Neri Yang PharmD Unavailable Unavail able Antionette Murphy PharmD Unavailable [phone] Reason for Visit * Reason Onset Date Comments Results 10/08/2023 Encounter Details Date Type Department Care Team ([facility] st Contact Info) Description 10/08/2023 Telephone [facility] MEDICINE [address] [place] [address] Linda Murphy DO [address] [place], [place] [phone] Results Social History Tobacco Use Types Packs/Day [...] yesterday 10/07/2023 but was transferred [facility]. documented in this encounter Plan of [...] documented as of this encounter Care Teams Fitting Room Associate Relationship Specialty Start Date End Date Linda Murphy DO [address] [place] [address] PCP - General Family Medicine 11/24/12 Neri Yang, PharmD [address] [place] [address] Pharmacist Internal Medicine 11/23/22 10/17/23 Antionette Murphy PharmD [address] [place] [address] Pharmacist Internal Medicine 07/15/24 02/25/25 documented as of this encounter
--- OUTSIDE RECORDS SUMMARY | 2025-03-16 11:35 | XMS_ITS | Encounter Summary ---
Author Organization [employer] Address [address] [place] [address] 7t [place] [address] Care Team Providers Care Shipping Track Supervisor Name Role Phone Linda Murphy DO Primary Care Provider Dellogla Neri PharmD Unavailable Unavail able Antionette Murphy PharmD Unavailable Reason for Visit * Reason Comments Med Refill Encounter Details Date Type Department Care Team ([facility] st Contact Info) Description 04/05/2023 Refill [facility] [address] [place] [address] Linda Murphy DO [address] [place] [address] Social History Tobacco Use Types Packs/Day Years [...] documented as of this encounter Care Teams Shipping Track Supervisor Relationship Specialty Start Date End Date Linda Murphy DO [address] [place] [address] PCP - General Family Medicine 11/24/12 Neri Yang, PharmD [address] [place] [address] Pharmacist Internal Medicine 11/23/22 10/17/23 Antionette Murphy, EricD [address] [place] [address] Pharmacist Internal Medicine 07/15/24 02/25/25 documented as of this encounter
--- OUTSIDE RECORDS SUMMARY | 2025-03-16 11:36 | XMS_ITS | Encounter Summary ---
Author Organization [employer] Address [address] [place] [address] Care Team Providers Care Bill Of Lading Clerk Name Role Phone Linda Murphy DO Primary Care Provider [phone] Antionette Murphy PharmD Unavailable Reason for Visit * Reason Comments Med Refill Encounter Details Date Type Department Care Team (Late st Contact Info) Description 02/11/2025 Refill [facility] [address] [place] [address] Linda Murphy DO [address] [place] [address] Chronic low back pain, unspecified back pain [...] documented as of this encounter Care Teams Bill Of Lading Clerk Relationship Specialty Start Date End Date Linda Murphy DO [address] [place] [address] PCP - General Family Medicine 11/24/12 Antionette Murphy PharmD [address] [place] [address] Pharmacist Internal Medicine 07/15/24 02/25/25 documented as of this encounter
--- OUTSIDE RECORDS SUMMARY | 2025-03-16 11:36 | XMS_ITS | Clinical Summary ---
Author Organization [employer] Address [address] [place] [address] [address] [place] [address] Care Team Providers Care Braider Setter Name Role Phone KatherineLinda Primary Care Provider [phone] Allergies Active Allergy Reactions Criticality Noted Date [...] complication, without long-term current use of insulin (CMS/[facility]) Inject 1 each under the skin [...] tions:Chronic obstructive pulmonary disease, unspecified COPD type ([facility]) INHALE 1 AMPULE USING A NEBULIZER FOUR TIMES DAILY NEEDED FOR ASTHMA OR (for COPD) 180 mL 2 07/23/20 24 Active hydrOXYzine pamoate (Vistaril) 50 MG capsule TAKE 1 CAPSULE BY MOUTH THREE TIMES DAILY NEEDED FOR ANXIETY 07/15/20 24 Active Alcohol Swabs (Alcohol Prep) 70 % padsIndication s:Type 2 diabetes mellitus without complication, without long-term current use of insulin ([facility]) USE EVERY DAY UP TO TWICE DAILY 100 each 08/12/20 24 Active glucose blood (FREESTYLE LITE) test stripIndicatio ns:Type 2 diabetes mellitus without complication, without long-term current use of insulin ([facility]) Use to check blood sugar up to twice daily 100 each 08/12/20 24 Active TRUEplus Lancets 33G miscIndication s:Type 2 diabetes mellitus without complication, without long-term current use of insulin ([facility]) Use to check blood sugar up to twice daily 100 each 08/12/20 24 Active semaglutide (Rybelsus) 7 MG tablet TAKE 1 TABLET EVERY MORNING, 30 MINUTES BEFORE A MEAL ICD10= 30 tablet 5 08/26/20 24 Active metFORMIN XR (Glucophage-XR ) 500 MG 24 hr tabletIndicati ons:Type 2 diabetes mellitus without complication, without long-term current use of insulin ([facility]) TAKE 2 TABLETS BY MOUTH TWICE [...] CAPSULE 30 capsule 11 12/01/19 25 Active Mometasone Furoate (Asmanex HFA) 100 MCG/ACT aerosol Inhale 2 Act (200 mcg) 2 times daily. 13 g 11 12/23/19 25 Active albuterol (Ventolin HFA) 108 [...] mellitus with other specified complication, unspecified whether [place] [facility] insulin use ([facility]) Take 1 tablet (81 mg) by mouth at bedtime. 90 tablet 1 02/23/20 25 Active traMADol (Ultram) 50 MG tabletIndicati ons:Chronic low back pain, unspecified back pain laterality, unspecified whether sciatica present Take 1 tablet (50 mg) by mouth every 8 (eight) hours if needed for severe pain for up to 28 days. 84 tablet 03/02/20 25 025 Active ferrous sulfate (Fe Tabs) 325 (65 Fe) MG EC tablet Take 1 tablet (325 mg) by mouth Once daily. Do not crush, chew, or split. 30 tablet 03/02/20 25 Active COVID-19 At Home Antigen Test (QuickVue At-Home Covid-19 Test) kit 1 kit 1 (one) time. 11/17/19 22 025 Discontinued(M ed list cleanup (will not trigger notification to Pharmacy)) traZODone (Desyrel) 100 MG tablet Take 1 tablet by mouth after breakfast and after evening meal. 025 Discontinued(M ed list cleanup (will not trigger notification to Pharmacy)) Flovent HFA 110 MCG/ACT inhalerIndicat ions:Chronic obstructive pulmonary disease, unspecified COPD type ([facility]) INHALE 1 PUFF BY MOUTH TWICE DAILY [...] mellitus with other specified complication, unspecified whether rn coronary care unit insulin use ([facility]) TAKE 1 TABLET BY MOUTH EVERY EVENING 90 tablet 1 09/02/20 24 025 Discontinued(R eorder (will not trigger notification to Pharmacy)) Lubricants (K-Y Jelly) gel Apply desired amount topically to vaginal area as needed for dryness 113 g 11 12/23/19 25 025 Discontinued(M ed list cleanup (will [...] same time. 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 to airplane pilot helper - TB UTD Plantar callus 08/26/2024 01/27/2025 [...] Encounters Date Type Department Care Team Description 03/02/2025 Orders Only GENERIC EXTERNAL DATA DEPARTMENT Provider, Generic External Data 02/26/2025 11:45 AM EDT Office Visit [facility] MEDICINE [address] [place] [phone] Linda Murphy DO Non-small cell cancer of left lung (CMS/HCC) (Primary Dx); S/P lobectomy of lung; Anemia, unspecified type; Epidermal cyst; Type 2 diabetes mellitus without complication, without long-term current use of insulin ([facility]) 02/26/2025 Telephone [facility] MEDICINE [address] [place] [phone] Antionette Murphy, PharmD 02/26/[address] [address] Linda Murphy DO REGISTRATION FORM 02/26/2025 Travel 02/22/2025 Refill [facility] MED & PEDS [address] [place] [address] Linda Murphy DO Type 2 diabetes mellitus with other specified complication, unspecified whether [place] [facility] insulin use ([facility]); Chronic low back pain, unspecified back pain laterality, unspecified whether sciatica present 02/17/2025 Orders Only GENERIC EXTERNAL DATA DEPARTMENT Provider, Generic External Data 02/11/2025 Refill [facility] PED[facility] [address] [place] [address] Linda Murphy DO Chronic low back pain, unspecified back pain laterality, unspecified whether sciatica present 02/11/2025 Orders Only GENERIC EXTERNAL DATA DEPARTMENT Provider, Generic External Data 02/08/2025 Telephone [facility] MEDICINE [address] [place] [phone] Linda Murphy DO Pre-op 02/01/2025 Orders Only GENERIC EXTERNAL DATA DEPARTMENT Provider, Generic External Data 01/28/2025 Refill [facility] [address] [place] [phone] Linda Murphy DO 01/27/2025 11:15 AM EDT Office Visit [facility] [place] [address] Linda Murphy DO Pre-op examination (Primary Dx); Type 2 diabetes mellitus without complication, without long-term current use of insulin ([facility]); Encounter for screening mammogram for malignant neoplasm of breast; Encounter for screening for malignant neoplasm of colon 01/27/2025 Travel 01/19/2025 11:45 AM EDT Telemedicine [facility] [place] [address] Linda Murphy DO Chest congestion (Primary Dx); Preop examination 01/19/2025 Telephone [facility] [place] [address] Linda Murphy DO 01/19/2025 Travel 01/18/2025 Refill [facility] [address] [place] [address] Linda Murphy DO Chronic low back pain, unspecified back pain laterality, unspecified whether sciatica present 01/12/2025 Telephone [facility] MEDICINE [address] [place] [phone] No Lopez, KRYSTYNA NCNS GRINDER SETUP OPERATOR RV today 01/07/2025 Telephone [facility] MED[facility] [address] [place] [phone] No Lopez, RN NCNS for GRINDER SETUP OPERATOR RV today 01/07/[address] [address] No Lopez, RN Recommend GRINDER SETUP OPERATOR Tier 2 01/05/2025 Orders Only GENERIC EXTERNAL DATA DEPARTMENT Provider, Generic External Data 12/23/2024 Refill [facility] [address] [place] [phone] Linda Murphy DO Chronic GERD 12/21/2024 Refill [facility] [address] [place] [address] Linda Murphy DO Chronic low back pain, unspecified back pain laterality, unspecified whether sciatica present 12/18/2024 Refill [facility] MEDICINE [address] [place] [address] Linda Murphy DO 12/18/2024 Refill [facility] [address] [place] [address] Linda Murphy DO Acute post-traumatic headache, not intractable; Chronic obstructive pulmonary disease, unspecified COPD type ([facility]/HCC) 12/18/2024 Refill [facility] MEDICINE [address] [place] [address] Linda Murphy DO Type 2 diabetes mellitus without complication, without long-term current use of insulin ([facility]); Type 2 diabetes mellitus with other specified complication, unspecified whether [place] [facility] use ([facility]); Chronic obstructive pulmonary disease, unspecified COPD type ([facility]) from Last 3 Months Immunizations Name Administration [...] 08/13/2025 08/13/2024, 01/14/2023, 11/29/2021, Additional history exists Diabetes: Hemoglobin A1C 09/01/2025 025, 02/26/2025, 01/27/2025, Additional history exists Depression Screening 01/19/2026 01/19/2025, 01/20/20 25 SDOH Screening 01/19/2026 01/19/2025 Tobacco Screening 01/27/2026 01/27/2025 Lipid Panel 03/02/2026 03/02/2025, 10/0 01/2024, 08/26/2023, Additional history exists Diabetes: Foot Exam 03/04/2026 03/04/2025, 09/18/2024, 08/26/2024, Additional history exists HPV/Cotest 05/21/2027 05/21/2022, 05/11, 02/15/2022 DTaP/Tdap/Td Vaccines [...] 7 Result Component 6.3(03/02/2025 10:29 AM EDT) Neri Meléndez, PharmD Procedures Procedure Name Priority Date/Time Associated Diagnosis Comments AMB REFERRAL TO PODIATRY Routine 03/04/2025 Toenail avulsion, initial encounter Plantar callus Onychomycosis of multiple toenails with type 2 diabetes mellitus (CMS/HCC) ([facility]/HCC) THYROGLOBULIN, TUMOR MARKER W/REFLEX Routine 03/02/2025 10:29 AM EDT THYROGLOBULIN ANTIBODIES Routine 03/02/2025 10:29 AM EDT THYROGLOBULIN, LC/MS/MS Routine 03/02/2025 10:29 AM EDT TSH Routine 03/02/2025 10:29 AM EDT T4, FREE Routine 03/02/2025 10:29 AM EDT IRON AND TOTAL IRON BINDING CAPACITY Routine 03/02/2025 10:29 AM EDT Non-small cell cancer of left lung (CMS/HCC) S/P lobectomy of lung Anemia, unspecified type Epidermal cyst Type 2 diabetes mellitus without complication, without long-term current use of insulin (CMS/HCC) FERRITIN Routine 03/02/2025 10:29 AM EDT Non-small cell cancer of left lung (CMS/HCC) S/P lobectomy of lung Anemia, unspecified type Epidermal cyst Type 2 diabetes mellitus without complication, without long-term current use of insulin (CMS/HCC) VITAMIN B12/FOLATE, SERUM PANEL Routine 03/02/2025 10:29 AM EDT Non-small cell cancer of left lung (CMS/HCC) S/P lobectomy of lung Anemia, unspecified type Epidermal cyst Type 2 diabetes mellitus without complication, without long-term current use of insulin (CMS/HCC) CBC WITH AUTO DIFFERENTIAL Routine 03/02/2025 10:29 AM EDT Non-small cell cancer of left lung (CMS/HCC) S/P lobectomy of lung Anemia, unspecified type Epidermal cyst Type 2 diabetes mellitus without complication, without long-term current use of insulin (CMS/HCC) BASIC METABOLIC PANEL Routine 03/02/2025 10:29 AM EDT Non-small cell cancer of left lung (CMS/HCC) S/P lobectomy of lung Anemia, unspecified type Epidermal cyst Type 2 diabetes mellitus without complication, without long-term current use of insulin (CMS/HCC) HEMOGLOBIN A1C Routine 03/02/2025 10:29 AM EDT Non-small cell cancer of left lung (CMS/HCC) S/P lobectomy of lung Anemia, unspecified type Epidermal cyst Type 2 diabetes mellitus without complication, without long-term current use of insulin (CMS/HCC) HEPATIC FUNCTION PANEL Routine 03/02/2025 10:29 AM EDT Non-small cell cancer of left lung (CMS/HCC) S/P lobectomy of lung Anemia, unspecified type Epidermal cyst Type 2 diabetes mellitus without complication, without long-term current use of insulin (CMS/HCC) VITAMIN D,25-OH,TOTAL,IA Routine 03/02/2025 10:29 AM EDT Non-small cell cancer of left lung (CMS/HCC) S/P lobectomy of lung Anemia, unspecified type Epidermal cyst Type 2 diabetes mellitus without complication, without long-term current use of insulin (CMS/HCC) TSH Routine 03/02/2025 10:29 AM EDT Non-small cell cancer of left lung (CMS/HCC) S/P lobectomy of lung Anemia, unspecified type Epidermal cyst Type 2 diabetes mellitus without complication, without long-term current use of insulin (CMS/HCC) LIPID PANEL, STANDARD Routine 03/02/2025 10:29 AM EDT Non-small cell cancer of left lung (CMS/HCC) S/P lobectomy of lung Anemia, unspecified type Epidermal cyst Type 2 diabetes mellitus without complication, without long-term current use of insulin (CMS/HCC) T4, FREE Routine 03/02/2025 10:29 AM EDT Non-small cell cancer of left lung (CMS/HCC) S/P lobectomy of lung Anemia, unspecified type Epidermal cyst Type 2 diabetes mellitus without complication, without long-term current use of insulin (CMS/HCC) POCT GLYCATED HEMOGLOBIN, TOTAL Routine 02/26/2025 12:13 PM EDT Type 2 diabetes mellitus without complication, without long-term current use of insulin (CMS/HCC) POCT GLUCOSE Routine 02/26/2025 12:13 PM EDT Type 2 diabetes mellitus without complication, without long-term current use of insulin (CMS/HCC) CBC WITH AUTO DIFFERENTIAL Routine 02/17/2025 10:20 [...] long-term current use of insulin ([facility]) POCT GLUCOSE Routine 01/27/2025 11:54 AM EDT Pre-op examination Type 2 diabetes mellitus without complication, without long-term current use of insulin (CMS/HCC) XR CHEST 2 VIEWS STAT 01/20/2025 11:3 [...] WHOLE BLOOD Routine 01/05/2025 9:48 AM EST ALBUMIN, RANDOM URINE W/CREATININE Routine [...] Recently Relevant to Health Maintenance Results * Referral to Podiatry (03/04/2025) Asuncion Bailey MD OUTPATIENT REFERRAL BEVERLYJazmine CHICHO Final Result * (ABNORMAL) Thyroglobulin, LC/MS/MS (03/02/2025 10:29 AM EDT) Thyroglobulin, LC/MS/MS 0.2(A) ng/mL [facility] Comment:Reference Range: Int act Thyroid 2.8-40.9 Athyrotic <0.1 Note: Abnormal flagging is based on the reference interval for patients with intact thyroid.This test was performed using the Twist Biosciencechemiluminescent method. Values obtained fromdifferent assay methods cannot be usedinterchangeably. Thyroglobulin levels, regardlessof value, should not be interpreted as absoluteevidence of the presence or absence of disease. Thyroglobulin Comment See Below [facility] Comment:Thyroglobulin antibo dies (TGAB) interfere withthyroglobulin (TG) assays; therefore, TGAB assayshould always be performed in conjunction with aTG assay.For additional information, please refer [email or web address]/[email or web address](This link is being provided for informational/educational purposes only.)THIS TEST WAS PERFORMED AT:[employer] [place] [phone] DURANT MD 03/02/2025 10:2 9 AM EDT 03/02/2025 10:29 AM EDT us Generic External Data Provider LAB BLOOD ORDERAB LES Final Result [facility] [address] [place] [phone] * (ABNORMAL) Thyroblobulin, Tumor Marker w/Reflex (03/02/2025 10:29 AM EDT) Thyroglobulin Antibody <1 <=1 IU/mL [facility] Comment:This Thyroglobulin a ntibody test was performedusing the [employer] Chemiluminescent method.Values obtained from different assay methods cannot beused interchangeably. Thyroglobulin antibody levels,regardless of value, should not be interpreted asabsolute evidence of the presence or absence ofdisease. Thyroglobulin, LC/MS/MS TNP [facility] Thyroglobulin Level 0.2(A) ng/mL [facility] Comment:Reference Range: Ath yrotic: <0.1 ng/mLReference range applies to differentiated thyroidcancer patients following treatment. The presence ofmeasurable thyroglobulin indicates the presence ofthyroglobulin-producing thyroid tissue. Clinicalcorrelation is advised.This Thyroglobulin test was performed using theTw[employer] Biosc[employer] Chemiluminescent method. Valuesobtained from different assay methods cannot beused interchangeably. Thyroglobulin levels, regardlessof value, should not be interpreted as absoluteevidence of the presence or absence of disease.THIS TEST WAS PERFORMED AT:[employer] [id number] [place] [id number] ROJAS MD,PHD 03/02/2025 10:2 9 AM EDT 03/02/2025 10:29 AM EDT Generic External Data Provider LAB BLOOD ORDERAB LES Final Result [facility] [address] [place] [phone] * Vitamin D, 25-Hydroxy, Total, Immunoassay (03/02/2025 10:29 AM EDT) Vitamin D 25-OH Total 32.0 >30 ng/mL [facility] Comment: Health Based Reference Values*< 20 ??ng/mL ??Pktlgojhn38-22 ng/mL ??Insufficient> 30 ??ng/mL ??Sufficient*Amado LARA. N Engl J Med. 2007;357:266-280There is no well-established upper level of normal vitamin Dlevels. Some laboratories use 50 ng/mL as an upper limit ofnormal. However, toxicity is patient-dependent and may occurat any level. Careful correlation with the patient'spresentation is necessary and, if there is concern forvitamin D toxicity, treatment should be consideredirrespective of the serum level.Care must be taken in interpreting Vitamin D results fromdifferent laboratories and methodologies. ??Published datademonstrated that results from patients undergoinghemodialysis may show a negative bias when tested withvarious automated 25-OH vitamin D assays when compared toLC- MS/MS.When testing samples from patients whose predominant form ofVitamin D is Vitamin D2, such as patients receiving VitaminD2 supplementation, results that are subtherapeutic shouldbe confirmed with another method such as LC-MS/MS. Blood Venous blood specimen / Unknown 03/02/2025 10:29 AM EDT 03/02/2025 10:29 AM EDT us Linda Murphy DO LAB BLOOD ORDERABLES Final R esult [facility] [address] [place] [phone] * Vitamin B12 (Cobalamin) and Folate Panel, Serum (03/02/2025 10:29 AM EDT) Vitamin B12 364 200 - 900 pg/mL [facility] Comment:NORMAL 200-900 PG/ML INDETERMINATE 160-199 PG/ML DEFICIENT < 160 PG/ML Folate 11.2 > or = 4.0 ng/mL [facility] Comment:Reference Values:> o r = 4.0 ng/mL< 4.0 ng/mL suggests folate deficiency Methotrexate, aminopterin and folinic acid(leucovorin) are chemotherapeutic agents whose molecularstructures are similar to folate; therefore, the Architectfolate assay cannot be used for patients using these drugs. Blood 03/02/2025 10:2 9 AM EDT 03/02/2025 10:29 AM EDT us Linda Garciadillonelian DO LAB BLOOD ORDERABLES Final R esult [facility] [address] [place] [phone] * (ABNORMAL) CBC auto differential (03/02/2025 10:29 AM EDT) Only the most recent of3 resultswithin the time period is included. White Blood Count 11.9(H) 4.8 - 10.8 X10*3/uL [facility] Red Blood Count 3.29(L) 4.20 - 5.50 X10*6/uL [facility] Hemoglobin 9.4(L) 12.0 - 16.0 g/dl [facility] Hematocrit 28.9(L) 37.0 - 47.0 % [facility] Mean Corpuscular Volume 87.8 80.0 - 98.0 fL [facility] Mean Corpuscular Hemoglobin 28.6 27.0 - 33.0 pg [facility] Mean Corpuscular HGB Conc 32.5 31.0 - 35.0 g/dl [facility] Red Cell Distribution Width 14.6 11.0 - 16.0 % [facility] Platelet Count 534(H) 160 - 400 X10*3/uL [facility] Mean Platelet Volume 9.3(L) 9.4 - 12.3 fL [facility] Neutrophils Percent Auto 65.3 45 - 73 % [facility] Imm Gran Pct Auto 0.7(H) 0.0 - 0.4 % [facility] Lymphocytes Percent Auto 19.9(L) 20 - 40 % [facility] Monocytes Percent Auto 8.2 2 - 11 % [facility] Eosinophils Percent Auto 5.1(H) 0 - 4 % [facility] Basophils Percent Auto 0.8 0 - 2 % [facility] NRBC Pct Auto 0.0 0.0 - 0.2 /100WBC [facility] Neutrophils Absolute Auto 7.8 2.0 - 8.3 x10*3/uL [facility] Imm Gran Abs Auto 0.08(H) 0.00 - 0.03 X10*3/uL [facility] Lymphocytes Absolute Auto 2.4 1.2 - 4.9 X10*3/uL [facility] Monocytes Absolute Auto 1.0 0.1 - 1.2 X10*3/uL [facility] Eosinophils Absolute Auto 0.6(H) 0.0 - 0.4 X10*3/uL [facility] Basophils Absolute Auto 0.1 0.0 - 0.2 X10*3/uL [facility] NRBC Abs Auto 0.000 0.0 - 0.012 X10*3/uL [facility] Blood Venous blood specimen / Unknown 03/02/2025 10:29 AM EDT 03/02/2025 10:29 AM EDT Linda Murphy Chrends LAB BLOOD ORDERABLES Final R esult Performing Organization Address City/[facility]/ZIP Co de Phone Number [facility] [address] [place] [phone] * (ABNORMAL) Iron And Total Iron Binding Capacity (03/02/2025 10:29 AM EDT) Iron 28(L) 30 - 160 mcg/dL [facility] Total Iron Binding Capacity 251 228 - 428 mcg/dL [facility] Percent Iron Saturation 11(L) 15 - 50 % [facility] Unsaturated Iron Binding 223 ug/dL [facility] Blood Venous blood specimen / Unknown 03/02/2025 10:29 AM EDT 03/02/2025 10:29 AM EDT Linda Murphy Chrends LAB BLOOD ORDERABLES Final R esult Performing Organization Address City/[facility]/ZIP Co de Phone Number [facility] [address] [place] [phone] * Thyroglobulin Antibodies (03/02/2025 10:29 AM EDT) Thyroglobulin Antibodies <1 < or = 1 IU/mL [facility] Comment:THIS TEST WAS PERFOR MED AT:[facility] [employer] [place] [id number] DURANT MD 03/02/2025 10:2 9 AM EDT 03/02/2025 10:29 AM EDT Generic External Data Provider LAB BLOOD ORDERAB LES Final Result Performing Organization Address City/[facility] Co de Phone Number [facility] [address] [place] [phone] * (ABNORMAL) TSH (03/02/2025 10:29 AM EDT) Only the most recent of2 resultswithin the time period is included. Thyroid Stimulating Hormone 14.79(H) 0.32 - 4.0 uIU/mL [facility] Comment:Note: A sustained TS H level above 2.5 uIU/mL may warrant further investigation. TSH 3rd Generation ([facility]) 03/02/2025 10:2 9 AM EDT 03/02/2025 10:29 AM EDT us Generic External Data Provider LAB BLOOD ORDERAB LES Final Result Performing Organization Address City/[facility]/ZIP Co de Phone Number [facility] [address] [place] [phone] * T4, Free (03/02/2025 10:29 AM EDT) Only the most recent of2 resultswithin the time period is included. Free T4 (Free Thyroxine) 1.35 0.71 - 1.85 ng/dL [facility] 03/02/2025 10:2 9 AM EDT 03/02/2025 10:29 AM EDT Generic External Data Provider LAB BLOOD ORDERAB LES Final Result Performing Organization Address City/[facility]/ZIP Co de Phone Number [facility] [address] [place] [phone] * (ABNORMAL) Hemoglobin A1c (03/02/2025 10:29 AM EDT) Only the most recent of2 resultswithin the time period is included. Hemoglobin A1c 6.3(H) <6.0 % [facility] Comment:Hemoglobin A1C Refer ence Range Adults: 4.8 - 6.0 % Non diabetic: < 6.0 % Goal: < 7.0 %Additional Action Suggested: > 8.0 %Note: Hemoglobin A1c results are invalid for patients with abnormal amounts of HbF. Blood transfusions may impact the HbA1c concentration in the patient sample. Estimated Average Glucose 134 mg/dL [facility] Comment:eAG = Estimated ave rage glucose which is %A1C expressed asaverage glucose, using the formula of the B2B-FhnjwljNdcvzbz Glucose study (ADAG), Diabetes Care, Vol.31,#8,Jun. 2007 Blood Venous blood specimen / Unknown 03/02/2025 10:29 AM EDT 03/02/2025 10:29 AM EDT us Linda Murphy DO LAB BLOOD ORDERABLES Final R esult Performing Organization Address [facility] Co de Phone Number [facility] [address] [place] [phone] * Ferritin (03/02/2025 10:29 AM EDT) Ferritin 241 10 - 250 ng/mL [facility] Blood Venous blood specimen / Unknown 03/02/2025 10:29 AM EDT 03/02/2025 10:29 AM EDT Linda Murphy DO LAB BLOOD ORDERABLES Final R esult Performing Organization Address City/[facility]/ZIP Co de Phone Number [facility] [address] [place] [address] [phone] * (ABNORMAL) Hepatic Function Panel (03/02/2025 10:29 AM EDT) Bilirubin, Total 0.3 0.0 - 1.0 mg/dL [facility] Bilirubin, Direct 0.1 0.0 - 0.5 mg/dL [facility] Aspartate Amino Transferase 21 5 - 31 U/L [facility] Alanine Aminotransferase 22 0 - 31 U/L [facility] Total Protein 7.3 6.5 - 8.0 g/dL [facility] Albumin Level 4.0 3.5 - 5.0 g/dL [facility] Alkaline Phosphatase 121(H) 39 - 117 U/L [facility] Blood Venous blood specimen / Unknown 03/02/2025 10:29 AM EDT 03/02/2025 10:29 AM EDT us Linda Murphy DO LAB BLOOD ORDERABLES Final R esult [facility] [address] [place] [address] [phone] * Lipid Panel, Standard (03/02/2025 10:29 AM EDT) Triglycerides 147 <150 mg/dL [facility] Comment:Desirable Triglyceri de: less than 150 mg/dLBorderline High Triglyceride 150-199 mg/dLHigh Triglyceride: 200-499 mg/dLVery High Triglyceride: greater than or equal to 5OO mg/dL Cholesterol 137 <200 mg/dL [facility] Comment:Desirable Cholestero l: less than 200 mg/dLBorderline High Cholesterol: 200-239 mg/dLHigh Cholesterol: greater than 239 mg/dL LDL Cholesterol Calculated 65 <100 mg/dL [facility] Comment:Desirable LDL: less than 100 mg/dLNear Optimal/Above Optimal LDL: 110- 129 mg/dLBorderline High LDL: 130-159 mg/dLHigh LDL: 160-189 mg/dLVery High LDL: greater than or equal to 190 mg/dL HDL Cholesterol 43 >40 mg/dL [facility] Comment:Desirable HDL: great er than 40 mg/dL Note: This HDL assay may give artificially low results in patients with liver disease. Blood Venous blood specimen / Unknown 03/02/2025 10:29 AM EDT 03/02/2025 10:29 AM EDT Linda Murphy DO LAB BLOOD ORDERABLES Final R esult Performing Organization Address [facility] Co de Phone Number [facility] [address] [place] [phone] * (ABNORMAL) Basic Metabolic Panel (03/02/2025 10:29 AM EDT) Only the most recent of2 resultswithin the time period is included. Sodium 138 135 - 145 mmol/L [facility] Potassium 4.2 3.3 - 5.1 mmol/L [facility] Chloride 102 96 - 108 mmol/L [facility] Carbon Dioxide 28 22 - 29 mmol/L [facility] Anion Gap 12 12 - 20 [facility] Urea Nitrogen (BUN) 9 9 - 16 mg/dL [facility] Creatinine, Serum 1.09 0.5 - 1.4 mg/dL [facility] Estimated Glomerular Filt Rate 53 [facility] Comment:Chronic Kidney Disea se: Estimated GFR < 60 mL/min/1.44a0Lkfdok Kidney Disease: Estimated GFR < 15 mL/min/1.73m2 Glucose 198(H) 60 - 115 mg/dL [facility] Calcium 9.1 8.4 - 10.2 mg/dL [facility] Blood Venous blood specimen / Unknown 03/02/2025 10:29 AM EDT 03/02/2025 10:29 AM EDT us Linda Murphy DO LAB BLOOD ORDERABLES Final R esult Performing Organization Address [facility]/ZIP Co de Phone Number [facility] [address] [place] [phone] * (ABNORMAL) POCT HGB A1C (02/26/2025 12:13 PM EDT) Only the most recent of2 resultswithin the time period is included. Hemoglobin A1C 6.6(A) 4.0 - 6.0 % QC Media Lot # [id number] Lot# Expiration Date ,026 Blood 02/26/2025 12:1 3 PM EDT Linda [...] / Unknown 02/26/2025 12:13 PM EDT Linda Katherine DO POINT OF CARE TEST ENTER/JAME T ORDERABLES Final Result * XR Chest 1 View (02/15/2025 10:10 AM EDT) Only the most recent of8 resultswithin the time period is included. Anatomical Region Laterality Modality Chest Radiographic Rosaura ging 02/15/2025 10:1 0 AM EDT Narrative 02/15/2025 10:47 AM EDT ? [facility] ?[address] ?[place] [address] ?XRay Report ? Signed ? Patient: Tisha Ruiz ?MR#: [id number] ?? 61 ? : 1970 ?Acct:[id number] ? Age/Sex: 54 / F ?ADM Date: 04/03/25 ? Loc: HO.IMC ?478-1 ? Attending Dr: Mario Hoyt MD ? Ordering Physician: Rose Michelle PA-C ?? Date of Service: 02/15/25 ?? Procedure(s): XR chest 1V ?? Accession Number(s): [id number] ? cc: Linda Murphy DO; Rose Michelle [...] DD/ 1010 ? TD/TT: 02/15/25 1034 ? Plastics Spreading Machine Operator: ? Procedure Note Elena Roth - 02/15/[address] [address] XRay Report Signed Patient: Ayanna RuiznMR#: [id number] 61 : 1970Acct:[id number] Age/Sex: 54 / FADM Date: 02/11/25 Loc: .[facility] 478-[address]: Mario Hoyt MD Ordering Physician: Rose Michelle PA-C Date of Service: 02/15/25 Procedure(s): XR chest 1V Accession Number(s): [id number] cc: Linda Murphy Adrienne PA-C EXAMINATION: XR CHEST CLINICAL INFORMATION: f/u [...] Lexa Lei MD 02/15/2025 10:43 AM EDT RP Dictated By: Lexa Lei MD Signed By: <Electronically signed by Lexa Lei MD in OV> 02/15/25 1043 DD/ 1010 TD/TT: 02/15/25 1034 Plastics Spreading Machine Operator: [facility] External Provider IMG XR PROCEDURES Final Result * (ABNORMAL) Glucose, Whole Blood (02/11/2025 6:35 AM EDT) Only the most recent of2 resultswithin the time period is included. [facility] [address] Glucose, Whole Blood 152(H) 60 - 115 mg/dL [facility] Comment:METER #: [id number] 02/11/2025 6:35 AM EDT 02/11/2025 6:39 AM EDT Generic External Data Provider LAB BLOOD ORDERAB LES Final Result [facility] [address] [place] [phone] * Type and screen (02/01/2025 11:11 AM EDT) [facility] [address] Blood Type ON [facility] Antibody Screen NEGATIVE [facility] 02/01/2025 11:1 1 AM EDT 02/01/2025 11:28 AM EDT Narrative [facility] - 02/01/2025 12:04 PM EDT Spec expiration changed by SHIRLEY on 02/01/25Reason: PATWITNESSED BY BIRGIT:Call Blood Bank (ext. 1906) to band patient on admission.Type and Screen in effect until 2300 on 02/11/25. us Generic External Data Provider LAB BLOOD BANK TE ST ORDERABLES Final Result [facility] [address] [place] [address] [phone] * XR Chest 2 Views (01/20/2025 11:30 AM EDT) Anatomical Region Laterality Modality Chest Radiographic Rosaura ging 01/20/2025 11:3 0 AM EDT Narrative 01/20/2025 11:50 AM EDT ? [facility] ?[address] ?[place] [address] ?XRay Report ? Signed ? Patient: Tisha Ruiz ?MR#: [id number] ?? 61 ? : 1970 ?Acct:[id number] ? Age/Sex: 54 / F ?ADM Date: 01/20/25 ? Loc: HO.XRAY ? Attending Dr: Geneva Candelario MD ? Ordering Physician: Linda Murphy DO ?? Date of Service: 01/20/25 ?? Procedure(s): XR chest 2V ?? Accession Number(s): [id number] ? cc: KatherineLinda Juanito DO ? EXAMINATION: ??XR CHEST 2 VIEWS [...] DD/ 1130 ? TD/TT: 01/20/25 1140 ? Plastics Spreading Machine Operator: ? Procedure Note Donotmarkellinterpreter, Image - 01/20/[address] [address] XRay Report Signed Patient: Ayanna RuiznMR#: [id number] 61 : 1970Acct:[id number] Age/Sex: 54 / FADM Date: 01/20/25 Loc: [facility] Attending Dr: Geneva Candelario MD Ordering Physician: Linda Murphy DO Date of Service: 01/20/25 Procedure(s): XR chest 2V Accession Number(s): [id number] cc: Linda Murphy DO EXAMINATION: XR CHEST [...] 01/20/25 1148 DD/ 1130 TD/TT: 01/20/25 1140 Plastics Spreading Machine Operator: Linda Murphy DO IMG XR PROCEDURES Final Resu lt * (ABNORMAL) Partial Thromboplastin Time, Activated (APTT) (01/20/2025 11:26 AM EDT) Partial Thromboplastin Time 44.2(H) 26.0 - 36.8 SEC [facility] Comment:For information rega rding the monitoring of direct thrombininhibitors, please refer to Pharmacy. Blood Venous blood specimen / Unknown 01/20/2025 11:26 AM EDT 01/20/2025 11:26 AM EDT Linda Murphy DO LAB BLOOD ORDERABLES Final R esult Performing Organization Address [facility]/ZIP Co de Phone Number [facility] [address] [place] [phone] * (ABNORMAL) Prothrombin Time-INR (01/20/2025 11:26 AM EDT) Prothrombin Time 10.1(L) 10.9 - 12.4 SEC [facility] INTERNATIONAL NORM RATIO 0.9 0.9 - 1.1 [facility] Comment:INTERNATIONAL NORMAL IZED RATIO (INR) [...] ORDERABLES Final R esult Performing Organization Address [facility]/ZIP Co de Phone Number [facility] [address] [place] [phone] * Gross and Microscopic Level 4 (01/05/2025 10:57 AM EST) 01/05/2025 10:5 7 AM EST 01/05/2025 11:19 AM EST [facility] - 01/26/2025 8:48 AM EDT ----- ------- Name: Tisha Ruiz ? Age/Sex: 54/F ? : 1970 Unit#: [id number] ?? Attend Dr: Mario Hoyt MD ?Re01/05/25 ?Status: DEP SDC ? Location: HO.SSS ?Disch: ? ----- ------- SPEC : [id number] ?RECD: 01/05/25-111 ? STATUS: ??SOUT ? REQ NUM: [id number] ? HILARY: 01/05/25-1057 ? SUBM DR: Rogelio Sales ? ENTERED: ??01/05/25-1120 ?SP TYPE: Surgical ? ANDIE FINE: Linda Murphy DO ?Mario Hoyt MD ORDERED: ??Gross Micro L4, IHC, Add. immunos, Napsin, TTF-1, NSCLC Lung bx ? COMMENTS: Block A (xT/xR Solid Tumor) + 3 unst. slides (PD-L1) sent to ?[facility] on 01/08/25. ?Addendum Addendum ??3 ?Entered: 01/26/25 [facility] testing: Genomic variants: Biologically Relevant: ? [...] ? Age/Sex: 54/F ? : 1970 Unit#: [id number] ?? Attend Dr: Mario Hoyt MD ?Re01/05/25 ?Status: DEP SDC ? Location: HO.SSS ?Disch: ? ----- ------- SPEC : [id number] ?RECD: 01/05/25-1119 ? STATUS: ??SOUT ? REQ NUM: [id number] ? HILARY: 01/05/25-7 ? SUBM DR: Rogelio Sales ? ENTERED: [...] 0914 ? ----- ------- Addendum ??1 ?Entered: 01/07/25-1406 Immunostains show the [...] ? Age/Sex: 54/F ? : 1970 Unit#: [id number] ?? Attend Dr: Mario Hoyt MD ?Re01/05/25 ?Status: DEP SDC ? Location: HO.SSS ?Disch: ? ----- ------- SPEC : [id number] ?RECD: 01/05/25-1118 ? STATUS: ??SOUT ? REQ NUM: [id number] ? HILARY: 01/05/25-1056 ? SUBM DR: Rogelio [...] Copies To: ?? Linda Murphy DO ?? [facility] ?? [address] ?? [place] [address] ?? [phone] ?? Mario Hoyt MD ?? [facility] ?? [address] ?? [place] [address] ?? [phone] ?? [email or web address] ?? Rogelio Sales ?? [address] ?? [place] [address] ?? [phone] ?? [email or web address] ----- ------- Signed (signature on file) Anuradha Bhavana 01/06/25 1718 ? ----- ------- ? END OF REPORT ? us Generic External Data Provider LAB CYTOLOGY ORDE CHICHO Final Result [facility] [address] [place] [phone] * CT Biopsy Lung Left (01/05/2025 10:18 AM EST) Anatomical Region Laterality Modality Computed Tomogra phy 01/05/2025 10:1 8 AM EST Narrative 01/06/2025 2:23 PM EST ? [facility] ?[address] ?[place] [address] ? CT Scan Report ? Signed ? Patient: Tisha Ruiz ?MR#: [id number] ?? 61 ? : 1970 ?Acct:[id number] ? Age/Sex: 54 / F ?ADM Date: 02/25/25 ? Loc: HO.SSS ? Attending Dr: Mario Hoyt MD ? Ordering Physician: Mario Hoyt MD ?? Date of Service: 01/05/25 ?? Procedure(s): CT biopsy lung LT ?? Accession Number(s): [id number] ? cc: Linda Murphy DO; Mario Hoyt MD ? Report Number: ?? [id number]: Total DLP = ??490.00 mGy-cm ?? 54-year-old [...] DD/ 1018 ? TD/TT: 01/05/25 1119 ? Plastics Spreading Machine Operator: ? Procedure Note Donotuseinterpreter, Image - 01/06/[address] [place] [address] [address] Scan Report Signed Patient: Ayanna RuiznMR#: [id number] 61 : 1970Acct:[id number] Age/Sex: 54 / FADM Date: 01/05/25 Loc: .[facility] Attending Dr: Mario Hoyt MD Ordering Physician: Mario Hoyt MD Date of Service: 01/05/25 Procedure(s): CT biopsy lung LT Accession Number(s): [id number] cc: Linda Murphy DO; Mario Hoyt MD Report Number: [id number]: Total DLP = 490.00 mGy-cm 54-year-old female [...] by: Bharathi Land MD 01/06/2025 02:20 PM [facility] Dictated By: Rogelio Sales Signed By: <Electronically signed by Rogelio Sales in OV> 01/06/25 1420 <Electronically signed by Bharathi Land MD in OV> 01/06/25 1423 DD/ 1018 TD/TT: 01/05/25 1119 Plastics Spreading Machine Operator: [facility] External Provider IMG CT PROCEDURES Final Result * Albumin, Random Urine W/Creatinine (08/13/2024 3:30 PM EDT) Creatinine, Urine 21.51 mg/dL [facility] Microalbumin Urine <5.0 mg/L [facility] Microalbum Creatinine Ratio Ur TNP <30 ug/mg cr [facility] Comment:Unable to calculate albumin/creatinine ratio due to lowmicroalbumin or creatinine result. Urine (Urine, Random) 08/13/2024 3:30 PM EDT 08/13/2024 3:38 PM EDT us Linda Murphy Ch[facility] LAB URINE ORDERABLES Final R esult Performing Organization Address [facility]/ZIP Co de Phone Number [facility] [address] [place] [phone] [phone] * HIV Ab/Ag (SETH PAK) (08/26/2023 2:47 PM EDT) HIV AB/AG Nonreactive Nonreactive [facility] Comment:HIV-1 p24 Ag and/or HIV-1/HIV-2 Ab not detected.A test result that is nonreactive does not exclude thepossibility of exposure to or infection with HIV-1 and/orHIV-2. Nonreactive results in this assay for individualswith prior exposure to HIV-1 and/or HIV-2 may be due toantigen and antibody levels that are below the limit ofdetection of this assay.The [employer] HIV Ag/Ab Combo assay result andsupplemental assay results should be interpreted inconjunction with the patient's clinical presentation,history and other laboratory results. If the results areinconsistent with clinical evidence, additional testing issuggested to confirm the result. 08/26/2023 2:47 PM EDT 08/26/2023 2:47 PM EDT Linda Murphy LAB BLOOD ORDERABLES Final R esult Performing Organization Address [facility]/ZIP Co de Phone Number [facility] [address] [place] [address] [phone] * Hepatitis C Antibody with Reflex to HCV, RNA, Quantitative, Real-Time PCR (08/26/2023 2:47 PM EDT) Hepatitis C Antibody Nonreactive Nonreactive [facility] Comment:Antibodies to HCV no t detected; does not exclude early acuteHCV infection. 08/26/2023 2:47 PM EDT 08/26/2023 2:47 PM EDT us Linda Murphy DO LAB BLOOD ORDERABLES Final R esult [facility] [address] [place] [phone] * HPV E6/E7 RFLX LUIS 16 18/45 (05/21/2022 3:45 PM EDT) HPV mRNA E6/E7 rflx Not Detected Not Detected [facility] Comment: Methodology: [employer] Administrator-Mediated Amplification This assay detects E6/E7 viral messenger RNA (mRNA) from 14 high-risk HPV types (16,18,31,33,35,39,45,51,52,56,58,59,66,68). Cervical sources are required for HPV testing. If a vaginal source from a patient who has had a total hysterectomy with removal of cervix was submitted, please contact the testing laboratory for alternative testing options. For additional information, please refer to http://education.Skrib[employer]/faq/KDJ528w5 (This link if provided for information/ educational purposes only.) THIS TEST WAS PERFORMED AT: [employer] [address] [place] [address] [address] [place], [place] ??[phone] VALERIA DURANT MD 05/21/2022 3:45 PM EDT us Fercho Palmer MD HISTORICAL/NON ORDERABLE LABS Fi nal Result [facility] [address] * Pap Smear (02/15/2022 12:00 AM EDT) Swab Linda Murphy DO LAB CYTOLOGY ORDERABLES Ce l Result [facility] [address] [facility], [place] [address] * DIGITAL BILATERAL SCREEN 1 (04/01/2019 2:56 [...] Most Recently Relevant to Health Maintenance Insurance [facility] ONE CARE < [address] [place] [id number] [employer] Care Teams Braider Setter Relationship Specialty Start Date End Date Linda Murphy DO [address] [place] [phone] PCP - General Family Medicine 11/24/12
--- OUTSIDE RECORDS SUMMARY | 2025-03-16 11:36 | XMS_ITS | Encounter Summary ---
Author Organization [employer] Address [address] [facility] 7t [place] [address] Care Team Providers Care Energy Audit Advisor Name Role Phone Linda Murphy DO Primary Care Provider Antionette Murphy PharmD Unavailable [phone] Reason for Visit * Reason Comments Med Refill Encounter Details Date Type Department Care Team ([facility] st Contact Info) Description 02/23/2024 Refill [facility] [address] [place] [address] Linda Murphy DO [address] [place] [address] Chronic obstructive pulmonary disease, unspecified COPD type [...] documented as of this encounter Care Teams Energy Audit Advisor Relationship Specialty Start Date End Date Linda Murphy DO [address] [place] [address] PCP - General Family Medicine 11/24/12 Antionette Murphy PharmD [address] [place] [address] Pharmacist Internal Medicine 07/15/24 02/25/25 documented as of this encounter
--- OUTSIDE RECORDS SUMMARY | 2025-03-16 11:36 | XMS_ITS | Encounter Summary ---
Author Organization [employer] Address [address] [facility] 7t [place] [address] Care Team Providers Care Mold Setter Name Role Phone Linda Murphy DO Primary Care Provider DelNeri zavala PharmD Unavailable Unavail able Antionette Murphy PharmD Unavailable [phone] Reason for Visit * Reason Onset Date Comments letter michael lopez 07/26/2023 Encounter Details Date Type Department Care Team (Late st Contact Info) Description 07/26/2023 Telephone [facility] MED[facility]INE [address] [place] [address] Linda Murphy DO [address] [place], [place] [phone] letter michael lopez Social History Tobacco Use [...] to Medical side. Please contact pt at [phone] documented in this encounter Plan of Treatment [...] documented as of this encounter Care Teams Mold Setter Relationship Specialty Start Date End Date Linda Murphy DO [address] [place] [phone] PCP - General Family Medicine 11/24/12 Neri Yang, PharmD [address] [place] [address] Pharmacist Internal Medicine 11/23/22 10/17/23 Antionette Murphy PharmD [address] [place] [phone] Pharmacist Internal Medicine 07/15/24 02/25/25 documented as of this encounter
--- OUTSIDE RECORDS SUMMARY | 2025-03-16 11:36 | XMS_ITS | Encounter Summary ---
Author Organization [employer] Address [address] [place] [address] 7t [place] [address] Care Team Providers Care Rebar Fabricator Name Role Phone Linda Murphy DO Primary Care Provider DelNeri zavala PharmD Unavailable Unavail able Antionette Murphy PharmD Unavailable Reason for Visit * Reason Comments Med Refill Encounter Details Date Type Department Care Team (Late st Contact Info) Description 07/08/2023 Refill [facility] MED[facility]INE [address] [place] [address] Linda Murphy DO [address] [place] [address] Pain Social History Tobacco Use Types Packs/Day [...] documented as of this encounter Care Teams Rebar Fabricator Relationship Specialty Start Date End Date Linda Murphy DO [address] [place] [address] PCP - General Family Medicine 11/24/12 Neri Yang, PharmD [address] [place] [address] Pharmacist Internal Medicine 11/23/22 10/17/23 Antionette Murphy PharmD [address] [place] [address] Pharmacist Internal Medicine 07/15/24 02/25/25 documented as of this encounter
--- OUTSIDE RECORDS SUMMARY | 2025-03-16 11:36 | XMS_ITS | Encounter Summary ---
Author Organization [employer] Address [address] [facility] 7t [place] [address] Care Team Providers Care Human Resources Consultant Name Role Phone Linda Murphy DO Primary Care Provider Dellogla Neri PharmD Unavailable Unavail able Antionette Murphy PharmD Unavailable [phone] Reason for Visit * Reason Onset Date Comments triage 11/14/2022 Encounter Details Date Type Department Care Team (Late st Contact Info) Description 11/14/2022 Telephone [facility] MED[facility]INE [address] [place] [address] Linda Murphy DO [address] [place] [address] triage Social History Tobacco Use Types Packs/Day [...] EST Triage call Pt reports seen in [facility] ED today. Pt reports bruising on bilateral [...] on filedocumented in this encounter Care Teams Human Resources Consultant Relationship Specialty Start Date End Date Linda Murphy DO [address] [place] [phone] PCP - General Family Medicine 11/24/12 Neri Yang, EricD [address] [place] [phone] Pharmacist Internal Medicine 11/23/22 10/17/23 Antionette Murphy PharmD [address] [place] [phone] Pharmacist Internal Medicine 07/15/24 02/25/25 documented as of this encounter
--- OUTSIDE RECORDS SUMMARY | 2025-03-16 11:36 | XMS_ITS | Encounter Summary ---
Author Organization [employer] Address [address] [facility] 7t [place] [address] Care Team Providers Care It Service Technician Name Role Phone Linda Murphy DO Primary Care Provider [phone] Antionette Murphy PharmD Unavailable [phone] Reason for Visit * Reason Onset Date Comments Med Refill 12/18/2024 Encounter Details Date Type Department Care Team (Late st Contact Info) Description 12/18/2024 Refill [facility] [address] [place] [address] Linda Murphy DO [address] [facility] [address] Acute post-traumatic headache, not intractable; Chronic obstructive [...] as of this encounter Care Teams It Service Technician Relationship Specialty Start Date End Date Linda Murphy DO [address] [place] [address] PCP - General Family Medicine 11/24/12 Antionette Murphy PharmD [address] [place] [address] Pharmacist Internal Medicine 07/15/24 02/25/25 documented as of this encounter
--- OUTSIDE RECORDS SUMMARY | 2025-03-16 11:36 | XMS_ITS | Encounter Summary ---
Author Organization [employer] Address [address] [facility] 7t [place] [address] Care Team Providers Care Scientific Informatics Leader Name Role Phone Linda Murphy DO Primary Care Provider Antionette Murphy PharmD Unavailable [phone] Reason for Visit * Reason Comments Med Refill Encounter Details Date Type Department Care Team ([facility] st Contact Info) Description 11/24/2023 Refill [facility] MEDICINE [address] [place] [address] Linda Murphy DO [address] [place] [address] Social History Tobacco Use Types Packs/Day Years [...] documented as of this encounter Care Teams Scientific Informatics Leader Relationship Specialty Start Date End Date Linda Murphy DO [address] [place] [address] PCP - General Family Medicine 11/24/12 Antionette Murphy PharmD [address] [place] [address] Pharmacist Internal Medicine 07/15/24 02/25/25 documented as of this encounter
--- OUTSIDE RECORDS SUMMARY | 2025-03-16 11:36 | XMS_ITS | Encounter Summary ---
Author Organization [employer] Address [address] [facility] [address] [place] [address] Care Team Providers Care Resource Conservation Manager Name Role Phone Linda Murphy DO Primary Care Provider Antionette Murphy PharmD Unavailable [phone] Reason for Visit * Reason Onset Date Comments Durable Medical Equipment 03/06/2024 Encounter Details Date Type Department Care Team (Late st Contact Info) Description 03/06/2024 Telephone [facility]INE [address] [place] [address] Linda Murphy DO [address] [place] [address] Durable Medical Equipment Social History Tobacco Use [...] documented as of this encounter Care Teams Resource Conservation Manager Relationship Specialty Start Date End Date Linda Murphy DO [address] [place] [address] PCP - General Family Medicine 11/24/12 Antionette Murphy PharmD [address] [place] [address] Pharmacist Internal Medicine 07/15/24 02/25/25 documented as of this encounter
--- OUTSIDE RECORDS SUMMARY | 2025-03-16 11:36 | XMS_ITS | Encounter Summary ---
Author Organization [employer] Address [address] [facility] 7[address] [place] [address] Care Team Providers Care Continuing Education Instructor Name Role Phone Linda Murphy DO Primary Care Provider [phone] Antionette Murphy PharmD Unavailable [phone] Reason for Visit * Reason Onset Date Comments Med Refill 12/18/2024 Encounter Details Date Type Department Care Team (Late st Contact Info) Description 12/18/2024 Refill [facility] MED[facility]INE [address] [place] [address] Linda Murphy DO [address] [place] [address] Social History Tobacco Use Types Packs/Day Years [...] documented as of this encounter Care Teams Continuing Education Instructor Relationship Specialty Start Date End Date Linda Murphy DO [address] [place] [address] PCP - General Family Medicine 11/24/12 Antionette Murphy PharmD [address] [place] [address] Pharmacist Internal Medicine 07/15/24 02/25/25 documented as of this encounter
== END 2025-03-16 10:29 | disposition home or self-care (01) ==
LOC: HO.HGS 10:08
PROVIDERS: PCP Family Medicine; Visit Provider Physician Assistant Surgical
DX: C34.32 Malignant neoplasm of lower lobe, left bronchus or lung (principal); Z90.2 Acquired absence of lung [part of]
CPT/HCPCS: 99024

== ENCOUNTER → 2025-03-16 10:07 | Outpatient (BNVA) | payer OTHER, SELFPAY | PROVIDERS: PCP Family Medicine; Visit Provider Physician Assistant Surgical | DX: C34.32 Malignant neoplasm of lower lobe, left bronchus or lung (principal); Z90.2 Acquired absence of lung [part of] | CPT/HCPCS: 99212 ==

== ENCOUNTER 2025-03-19 11:13 | Outpatient (AMB) | payer OTHER, SELFPAY ==
--- NOTE | 2025-03-19 11:18 | A.OFFVIS_ITS ---
Vital Signs 3 03/19/25 11:19 Height 5 ft 7.75 in Weight 207 lb 7.28 oz BMI 31.8 BP 108/54 L Blood Pressure Location Lt brachial Position Sitting Pulse 99 Pulse Source Pulse Oximeter Pulse Oximetry (%) 95 Oxygen Delivery Method Room Air Intake Visit Reasons: F/U Thyroid Cancer Intake Note: Patient present today for thyroid cancer follow up. Delivery Rn Required: No Accompanied by: Self / Same As Patient Allergies oxycodone [Percocet] Allergy (Intermediate, Verified 03/19/25 11:24) stomach pain SEASONAL ALLERGIES Allergy (Unknown, Uncoded 03/19/25 11:24) UNKNOWN Medication List - Last Reconciled 03/19/25 by Geneva Candelario MD acetaminophen ER 650 mg PO Q8H PRN albuterol sulfate 90 mcg/actuation 2 puffs inhalation QID PRN aripiprazole 20 mg PO BEDTIME ascorbic acid (vitamin C) 250 mg PO BID@1200,2100 aspirin 81 mg PO DAILY atorvastatin 40 mg PO BEDTIME bupropion HCl XL 300 mg PO DAILY bupropion HCl XL 150 mg PO DAILY clonazepam (Klonopin) 1 mg PO BID PRN docusate sodium (Colace) 100 mg PO BID ferrous fumarate (Ferrocite) 324 mg PO BID@1200,2100 glipizide 10 mg PO BID haloperidol 2.5 mg PO BEDTIME hydroxyzine pamoate 50 mg PO TID PRN ipratropium-albuterol 0.5 mg-3 mg(2.5 mg base)/3 mL 3 mL inhalation QID PRN lisinopril 2.5 mg PO DAILY@1200 loratadine 10 mg PO DAILY metformin ER 1,000 mg PO BID mometasone 100 mcg/actuation (Asmanex HFA) 2 puffs inhalation BID montelukast 10 mg PO BEDTIME omega-3 fatty acids 1,000 mg PO DAILY pantoprazole 20 mg PO DAILY@1700 PNV cmb#95-ferrous fumarate-FA 28 mg iron- 800 mcg () 1 tab PO DAILY semaglutide (Rybelsus) 7 mg PO DAILY Tirosint-Michelle (levothyroxine) 400 mcg (2 mL) PO DAILY NS tramadol 50 mg PO Q4H PRN tramadol 50 mg PO Q8H PRN HPI Comments Details: 54-year-old female coming in today for follow up of thyroid cancer status post total thyroidectomy 04/17/2021, 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 No lymph nodes were examined. PAIGE initial intermediate risk of recurrence based on tall cell histology, AJCC stage I (pT1a Nx), currently PAIGE excellent response to therapy. History of PTC in detail 05/20/2020: CT of the neck revealed thyromegaly with concern of multinodular thyroid. There was displacement of the trachea to the right, also found to have an enlarged left level 1B cervical lymph node. 04/17/2021: Status post total thyroidectomy for large goiter with compressive symptoms with Dr. Parrish Combs at [facility], surgical pathology showed 0.2 cm focus of papillary microcarcinoma within the left lobe of the thyroid, tall cell variant. No extrathyroidal extension, no angioinvasion, no lymphatic invasion, margins were negative. All lymph nodes were examined. One parathyroid gland was also resected. PAIGE initial intermediate risk of recurrence. AJCC stage I (pT1a NX) 10/16/2021: Remnant ablation with radioactive I 131, 31.7 mCi, post treatment whole-body scan revealed intense foci of uptake in the right upper and left lower thyroid bed. Additional mild uptake in the region superior lateral to the left thyroid bed. Otherwise uptake was physiologic. Postoperatively she was started on Levothyroxine 150 mcg PO daily. Labs revealed hypothyroidism so dose was increased to Levothyroxine 175 mcg PO daily. Labs continued to reveal hypothyroidism, so her dose was changed to levothyroxine 1225 mcg (7 x 175 mcg) one day per week. Labs persistently showed hypothyroidism. 06/26/2021 prior to dose of levothyroxine being increased revealed a TSH of 28.57, TG level 0.4 and TG antibody level <1. 11/15/2021 with TSH 90.49, TG 6.6 and TG antibodies <1. Her dose of levothyroxine was switched to 1400 mcg PO once a week. TSH remained in the hypothyroid range. 02/05/2022 for a supervised levothyroxine absorption test. She was administered levothyroxine 1000 mcg PO in the office under supervision. TSH and FT4 were drawn pre-test, at 2 hours, 4 hours and 24 hours post administration. At the 24 hour point her TSH did decline, but did not meet the 40% decline threshold to indicate pseudomalabsorption. Additionally her FT4 did not sufficiently increase 3-4x. She failed this test and was thought to have truly deficient absorption of levothyroxine. Started on Tirosint Michelle 400 mcg PO daily and TSH became at goal. 06/29/2022: Ultrasound head and neck, no residual thyroid tissue in the thyroid bed, normal-appearing lymph nodes noted bilaterally. 06/09/2024: TSH 0.24, thyroglobulin 0.1, TG antibody less than 1, free T4 1.24 06/23/2024: Dose of Tirosint reduced from 400 to 350 mcg due to suppressed TSH. 07/31/2024: TSH 30.64, free T4 0.90 08/03/2024: increased back from 350 mcg of Tirosint solution to 400 mcg daily 08/13/2024: TSH 22.85, free T4 1, thyroglobulin 0.4, TG antibody less than 1 Interval history 11/25/2024: Ultrasound of the neck shows normal-appearing lymph nodes Earlier this year in 2024 she also underwent lobectomy February 2025 and VATS procedure for her left lung adenocarcinoma. Per patient no plans for chemo and radiation. no more smoking. quit in January 2025 She continues to have issues with adherence to Tirosint. 10/05/2024: TSH: 6.59, free T4 1.26 03/02/2025: TSH 14.79, free T4 1.35, TG 0.2, TG antibody less than 1, says she was not getting her Tirosint solution while she was hospitalized back in February 2025. Denies any symptoms of hyper or hypothyroidism. She reports feeling well. Denies any history of head or neck irradiation. Denies any family history of thyroid cancer. No trouble swallowing, no pressure sensation, no voice changes Feels well overall Denies constipation Lost 20 lbs in the last 2 years, patient feels she lost more Physical exam General: sitting comfortably in no acute distress HEENT: normocephalic/atraumatic, Neck: supple, symmetrical Cardiac: normal heart sounds Pulm: normal breath sounds B/L, no added breath sounds Abd: not distended, no tenderness Extremities: no edema, no signs of myxedema Laboratory Tests 05/08/19 06/01/20 12/27/20 13:40 15:53 13:10 Free T4 0.99 0.93 1.24 TSH Thyroglobulin Thyroglobulin Antibody 12/27/20 06/26/21 07/27/21 13:10 13:22 14:05 Free T4 1.37 0.72 0.76 TSH 0.01 L 28.57 H 56.13 H Thyroglobulin 0.4 L 0.7 L Thyroglobulin Antibody <1 <1 08/30/21 09/29/21 11/15/21 10:27 10:52 14:08 Free T4 0.88 0.85 0.85 TSH 82.48 H 78.36 H 90.49 H Thyroglobulin 2.6 L 6.6 Thyroglobulin Antibody <1 <1 11/29/21 12/29/21 01/25/22 14:25 12:02 15:34 Free T4 1.10 0.74 TSH 0.36 60.39 H 13.09 H Thyroglobulin Thyroglobulin Antibody 02/05/22 02/05/22 02/05/22 08:23 10:37 13:11 Free T4 0.88 0.93 1.08 TSH 71.18 H 69.62 H 68.45 H Thyroglobulin Thyroglobulin Antibody 02/06/22 03/22/22 04/30/22 08:17 12:56 11:32 Free T4 0.94 0.72 0.99 TSH 53.42 H > 100.00 H 16.03 H Thyroglobulin 0.9 L 0.3 L Thyroglobulin Antibody 1 <1 05/21/22 05/21/22 06/29/22 16:13 16:13 15:20 Free T4 1.34 1.06 TSH 4.18 H 4.36 H 1.48 Thyroglobulin Thyroglobulin Antibody 09/13/22 11/19/22 02/08/23 09:52 09:39 09:54 Free T4 1.37 1.20 TSH 2.95 3.67 Thyroglobulin 0.1 H 0.2 H Thyroglobulin Antibody <1 <1 04/04/23 08/26/23 12/11/23 15:36 14:47 11:59 Free T4 1.03 1.41 1.20 TSH 9.20 H 0.05 L 6.65 H Thyroglobulin 0.3 H Thyroglobulin Antibody <1 03/05/24 06/09/24 07/31/24 13:54 14:41 13:22 Free T4 0.83 1.24 0.90 TSH 66.25 H 0.24 L 30.64 H Thyroglobulin 0.1 H Thyroglobulin Antibody <1 08/13/24 15:26 Free T4 1.00 TSH 22.85 H Thyroglobulin 0.4 H Thyroglobulin Antibody <1 Laboratory Tests 08/13/24 10/05/24 03/02/25 15:26 12:08 10:29 TSH 22.85 H 6.59 H Free T4 1.00 1.26 1.31 Thyroglobulin 0.4 H Thyroglobulin Antibody <1 03/02/25 03/02/25 10:29 10:29 TSH 14.79 H 15.05 H Free T4 1.35 Thyroglobulin 0.2 H Thyroglobulin Antibody <1 US SOFT TISSUE NECK. 11/25/24 CLINICAL INFORMATION: History of malignant neoplasm of thyroid. COMPARISON: None available. TECHNIQUE: Linear transducer espinoza-scale and color Doppler examination with attention to the region of the thyroid. FINDINGS: History of prior thyroidectomy with no residual thyroid tissue or mass seen within the thyroid bed. There are several lymph nodes noted in the neck. Right neck soft tissues: Scattered architecturally normal nodes are present. The nodes show normal fatty hilus, normal cortical thickness and no cystic change or calcification. No abnormal color flow. The largest nodes seen are as follows, Level 5A: 0.84 x 0.54 x 0.25 cm. Normal appearance. Not seen previously. Level 2:1.0 x 1.2 x 0.31 cm. Normal appearance. Not seen previously. Level 3:1.2 x 0.9 x 0.30 cm. Has normal appearance. Previously measured 0.71 x 1.0 x 0.52 cm. Level 3:0.80 x 0.90 x 0.60 cm. Normal appearance. Not seen previously. Level 3:0.7x 0.70 x 0.50 cm. Normal appearance. Not seen previously. Level 1B: 0.95 x 1.1 x 0.70 cm. Normal appearance. Not seen previously. Level 1A: 0.76 x 0.73 x 0.47 cm right normal appearance not seen previously. Left neck soft tissues: Scattered architecturally normal nodes are present. The nodes show normal fatty hilus, normal cortical thickness and no cystic change or calcification. No abnormal color flow. The largest nodes are as follows. Level 1: 0.62 x 0.50 x 0.61 cm. Normal appearance. Previously measured 0.55 x 0.60 x 0.70 cm Level 3:1.8 x 1.1 x 0.36 cm. Normal appearance. Previously measured 1.2 x 1.6 x 0.52 cm. US/US soft tiss head and/or neck IMPRESSION: Multiple bilateral cervical neck lymph nodes. Most of these lymph nodes are new and have benign appearance.. US SOFT TISSUE NECK 06/29/2022 CLINICAL INFORMATION: Personal history of malignant neoplasm of thyroid COMPARISON: CT soft tissue neck 10/28/2020. Ultrasound soft tissue head/neck thyroid dated 06/06/2020. TECHNIQUE: Ultrasound of the neck soft tissues is performed with high- frequency espinoza-scale imaging and color Doppler. FINDINGS: THYROID BED: Prior thyroidectomy. No residual thyroid tissue demonstrated in the thyroid bed. No cystic or solid nodules demonstrated in the thyroid bed. RIGHT NECK SOFT TISSUES: Scattered architecturally normal nodes are present. The nodes show normal fatty hilus, normal cortical thickness, and no cystic change or calcification. No abnormal color flow. The largest nodes are as follows: Level 1B: 0.8 x 0.7 x 1.2 cm. Normal hipolito architecture. Level 1B: 0.8 x 0 0.5-0.8 cm. Normal hipolito architecture. Level 4: 1 x 0.5 x 0.7 cm. Slightly diminutive hilum Level 4: 1 x 0.5 x 0.8 cm. Normal hipolito architecture. Level 5A: 1 x 0.4 x 0.7 cm. Normal hipolito architecture. LEFT NECK SOFT TISSUES: Scattered architecturally normal nodes are present. The nodes show normal fatty hilus, normal cortical thickness, and no cystic change or calcification. No abnormal color flow. The largest nodes are as follows: Level 1B: 0.6 x 0.9 x 0.5 cm. Normal hipolito architecture. Level 1B: 0.6 x 0.5 x 0.5 cm. Minimal hilum Level 1B: 0.5 x 0.6 x 0.7 cm. Normal hipolito architecture. Level 3: 0.8 x 1.6 x 0.6 cm. Normal hipolito architecture. Level 3: 0.8 x 1.1 x 0.4 cm. Normal hipolito architecture. Level 3: 1.5 x 0.5 x 1.1 cm. Normal hipolito architecture. Level 5A: 0.4 x 0.3 x 0.5 cm. Small node, no discernible hilum US/US soft tiss head and/or neck IMPRESSION: 1. Multiple bilateral cervical lymph nodes, as described. Several of the lymph nodes have minimal discernible chrystal without other architectural anomaly. 2. If clinically indicated further evaluation of the neck soft tissues and nodes may be performed with CT soft tissue neck with intravenous contrast. [facility] Medical History (Updated 02/26/25 @ 08:49 by Kimberlyn Spangler PA-C) Primary malignant neoplasm of left lower lobe of lung History of thyroid cancer Hx of radiation therapy Postoperative hypothyroidism Sciatica of right side Back pain Arthritis Anemia Anxiety On home oxygen therapy Incomplete right bundle branch block (RBBB) Uterine fibroid DANIEL (obstructive sleep apnea) Cervical cancer Schizoaffective disorder Pancreatitis Type 2 diabetes mellitus JESICA positive Vitamin D deficiency Morbid obesity Sacroiliitis Multinodular goiter HLD (hyperlipidemia) COPD (chronic obstructive pulmonary disease) GERD (gastroesophageal reflux disease) Bipolar 1 disorder Hypercalcemia Goiter Surgical History (Updated 02/26/25 @ 08:49 by Kimberlyn Spangler PA-C) History of lobectomy of lung History of tubal ligation History of cholecystectomy History of total thyroidectomy Family History Father Bipolar 1 disorder Mother Diabetes mellitus Hypertension Hyperlipidemia COPD (chronic obstructive pulmonary disease) Paternal Aunt Breast cancer Sister Cervical cancer Social History Household Members: Family Household Members Other:: duplex Housing: House Are you a primary care services manager to a significant other at home: No Do you presently have visiting nurse or other home services: No Alcohol intake: never Comment: Pt refusing bed alarm, agrees to ring call raza for assist. 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 No lymph nodes were examined. PAIGE initial intermediate risk of recurrence based on tall cell histology, AJCC stage I (pT1a Nx), last ultrasound neck in June of 2022 without any suspicious lymph nodes, her major issue postoperatively has been getting her TSH to goal with TSH consistently elevated due to absorption issues of levothyroxine. She is on Tirosint solution now with which we did see TSH come down intermittently making me suspicious that she is not taking her medication regularly. She has had the levothyroxine supervised a absorption test which did not exactly meet cut offs consistent with actual poor absorption rather than just poor adherence though numbers of free T4 did go high somewhat and TSH did get low but not exactly to cut off. Given her TSH is mostly elevated, we have seen multiple stimulated TG levels which has been in the range of 0.3-0.4 most recently consistent with PAIGE excellent response to therapy. 11/15/2021, when her TSH was elevated at 90, her thyroglobulin was at 6, otherwise has remained within good range. TG antibodies undetectable. On 06/09/2024 when TSH was suppressed at 0.24, unstimulated TG was 0.1, again consistent with a PAIGE excellent response to therapy. 03/02/2025: TSH 14.79, free T4 1.35, TG 0.2, TG antibody less than 1, says she was not getting her Tirosint solution while she was hospitalized back in February 2025. These labs were consistent with a PAIGE excellent response to therapy Ultrasound from November 2024 did not show any abnormal lymph nodes. More recently she was also found to have left lung adenocarcinoma, underwent left lung lobectomy, doing well postoperatively. Per patient she is not scheduled to get any chemotherapy or radiation. Per patient her TSH is elevated because when she was hospitalized in February 2025 she was not given her Tirosint solution in the hospital. Says she has been adherent to it now, we will plan to repeat labs in 8 weeks For thyroid cancer follow up, currently PAIGE excellent response to therapy. So TSH goal between 0.5-2. Plan: -continue levothyroxine 400 mcg solution daily -ordered TSH, free T4 to be done in 8 weeks -next thyroglobulin tumor markers prior to follow up in January 2026 -ordered ultrasound of the neck to be done in December 2025 prior to follow up in January 2026 -follow up in January 2026 (2) Postoperative hypothyroidism: Comment: (some thyroid hormone malabsorption - s/p throidectomy 2020 for papillary carinoma) Code(s): E89.0 - Postprocedural hypothyroidism Category: Medical Plan: 03/02/2025: TSH 14.79, free T4 1.35, TG 0.2, TG antibody less than 1, says she was not getting her Tirosint solution while she was hospitalized back in February 2025. These labs were consistent with a PAIGE excellent response to therapy Per patient her TSH is elevated because when she was hospitalized in February 2025 she was not given her Tirosint solution in the hospital. Says she has been adherent to it now, we will plan to repeat labs in 8 weeks For thyroid cancer follow up, currently PAIGE excellent response to therapy. So TSH goal between 0.5-2. Plan: -continue levothyroxine 400 mcg solution daily -ordered TSH, free T4 to be done in 8 weeks Plan I spent 30 minutes in reviewing the record, seeing the patient and documenting in the medical record. Orders: Orders 2 Thyroid Stimulating Hormone 8 Weeks E89.0 - Postprocedural hypothyroidism, Z85.850 - Personal history of malignant neoplasm of thyroid Free T4 (Free Thyroxine) 8 Weeks E89.0 - Postprocedural hypothyroidism, Z85.850 - Personal history of malignant neoplasm of thyroid US soft tiss head and/or neck 12/29/25 E89.0 - Postprocedural hypothyroidism, Z85.850 - Personal history of malignant neoplasm of thyroid Medications: Refilled 2 Tirosint-Michelle (levothyroxine) 400 mcg (2 mL) PO DAILY 60 mL 5RF NS Patient Instructions: Do blood work in 8 weeks Do ultrasound of the neck end of Dec 2025 , someone will call you to schedule this Follow up in January 2026 Coding Level of Care Code Est Pt Level 4 (41305) Complex EM visit Add On G2211 Diagnoses History of thyroid cancer Z85.850 Postoperative hypothyroidism E89.0 Time Spent (min) 30
[2025-03-19 11:19] VITALS: BP 108/54; PULSE 99; O2SAT 95; BMI 31.8
--- OUTSIDE RECORDS SUMMARY | 2025-03-19 11:42 | XMS_ITS | Encounter Summary ---
Author Organization [employer] Address [address] [facility] 7t [place] [address] Care Team Providers Care Automatic Presser Name Role Phone Linda Murphy DO Primary Care Provider [phone] Antionette Murphy PharmD Unavailable [phone] Reason for Visit * Reason Onset Date Comments Med Refill 12/18/2024 Encounter Details Date Type Department Care Team (Late st Contact Info) Description 12/18/2024 Refill [facility] [address] [place] [address] Linda Murphy DO [address] [facility] [place] [address] Acute post-traumatic headache, not intractable; Chronic obstructive [...] as of this encounter Care Teams Automatic Presser Relationship Specialty Start Date End Date Linda Murphy DO [address] [place] [address] PCP - General Family Medicine 11/24/12 Antionette Murphy PharmD [address] [place] [address] Pharmacist Internal Medicine 07/15/24 02/25/25 documented as of this encounter
--- OUTSIDE RECORDS SUMMARY | 2025-03-19 11:42 | XMS_ITS | Encounter Summary ---
Author Organization [email or web address] Address [address] [facility] [address] [place] [address] Care Team Providers Care Political Science Research Assistant Name Role Phone Linda Murphy DO Primary Care Provider [phone] Antionette Murphy PharmD Unavailable [phone] Reason for Visit * Reason Onset Date Comments Med Refill 12/18/2024 Encounter Details Date Type Department Care Team (Late st Contact Info) Description 12/18/2024 Refill [facility] [address] [place] [address] Linda Murphy DO [address] [place] [address] Social History Tobacco Use Types Packs/Day Years [...] documented as of this encounter Care Teams Political Science Research Assistant Relationship Specialty Start Date End Date Linda Murphy DO [address] [place] [address] PCP - General Family Medicine 11/24/12 Antionette Murphy PharmD [address] [place] [address] Pharmacist Internal Medicine 07/15/24 02/25/25 documented as of this encounter
--- OUTSIDE RECORDS SUMMARY | 2025-03-19 11:42 | XMS_ITS | Encounter Summary ---
Author Organization [employer] Address [address] [facility] 7t [place] [address] Care Team Providers Care Maintenance Fitter Name Role Phone Linda Murphy DO Primary Care Provider [phone] Reason for Visit * Reason Comments Med Refill Encounter Details Date Type Department Care Team ([facility] st Contact Info) Description 03/17/2025 Refill [facility] MED[facility]INE [address] [place] [address] Linda Murphy DO [address] [place] [address] Type 2 diabetes mellitus without complication, without long-term current use of insulin ([facility]) Social History Tobacco Use Types [...] complication, without long-term current use of insulin ([facility]) documented in this encounter Additional Health Concerns Assessment Noted Time PHQ-9 Depression Total Score: 0 01/20/20 25 12:15 PM EDT documented as of this encounter Care Teams Maintenance Fitter Relationship Specialty Start Date End Date Linda Murphy DO [address] [place] [id number] PCP - General Family Medicine 11/24/12 documented as of this encounter
--- OUTSIDE RECORDS SUMMARY | 2025-03-19 11:42 | XMS_ITS | Encounter Summary ---
Author Organization [employer] Address 75 [facility] 7t [place] [address] Care Team Providers Care Crane Service Technician Name Role Phone Linda Murphy DO Primary Care Provider [phone] Antionette Murphy PharmD Unavailable [phone] Reason for Visit * Reason Onset Date Comments Medication Question 11/13/2023 Encounter Details Date Type Department Care Team ([facility] st Contact Info) Description 11/13/2023 Telephone [facility] MEDICINE [address] [place] [address] Linda Murphy DO 230 [place] [address] Medication Question Social History Tobacco Use Types [...] 11/08 Physical appointment. Please contact pt at [phone] documented in this encounter Plan of Treatment [...] documented as of this encounter Care Teams Crane Service Technician Relationship Specialty Start Date End Date Linda Murphy DO [address] [place] [address] PCP - General Family Medicine 11/24/12 Antionette Murphy PharmD [address] [place] [address] Pharmacist Internal Medicine 07/15/24 02/25/25 documented as of this encounter
--- OUTSIDE RECORDS SUMMARY | 2025-03-19 11:42 | XMS_ITS | Encounter Summary ---
Author Organization [employer] Address 75 [facility] 7t [place] [address] Care Team Providers Care Ring Stamper Name Role Phone Linda Murphy DO Primary Care Provider Dellogla Neri PharmD Unavailable Unavail able Antionette Murphy PharmD Unavailable Reason for Visit * Reason Onset Date Comments triage 11/14/2022 Encounter Details Date Type Department Care Team (Late st Contact Info) Description 11/14/2022 Telephone [facility] MEDICINE [address] [place] [address] Linda Murphy DO 230 [place] [address] triage Social History Tobacco Use Types Packs/Day [...] EST Triage call Pt reports seen in [facility] ED today. Pt reports [...] on filedocumented in this encounter Care Teams Ring Stamper Relationship Specialty Start Date End Date Linda Murphy DO [address] [place] [address] PCP - General Family Medicine 11/24/12 Neri Yang, EricD [address] [place] [address] Pharmacist Internal Medicine 11/23/22 10/17/23 Antionette Murphy PharmD [address] [place] [address] Pharmacist Internal Medicine 07/15/24 02/25/25 documented as of this encounter
--- OUTSIDE RECORDS SUMMARY | 2025-03-19 11:42 | XMS_ITS | Encounter Summary ---
Author Organization [employer] Address 75 [facility] 7t [place] [address] Care Team Providers Care Field Agronomist Name Role Phone Linda Murphy DO Primary Care Provider Neri Yang PharmD Unavailable Unavail able Antionette Murphy PharmD Unavailable Reason for Visit * Reason Onset Date Comments Results 10/08/2023 Encounter Details Date Type Department Care Team ([facility] st Contact Info) Description 10/08/2023 Telephone [facility] MEDICINE [address] [place] [address] Linda Murphy DO [address] [place] [address] Results Social History Tobacco Use Types Packs/Day [...] yesterday 10/07/2023 but was [facility]. documented in this encounter Plan of [...] documented as of this encounter Care Teams Field Agronomist Relationship Specialty Start Date End Date Linda Murphy DO [address] [place] [address] PCP - General Family Medicine 11/24/12 Neri Yang, PharmD [address] [place] [address] Pharmacist Internal Medicine 11/23/22 10/17/23 Antionette Murphy PharmD 230 [place] [address] Pharmacist Internal Medicine 07/15/24 02/25/25 documented as of this encounter
--- OUTSIDE RECORDS SUMMARY | 2025-03-19 11:42 | XMS_ITS | Encounter Summary ---
Author Organization [employer] Address 75 [facility] 7t [place] [address] Care Team Providers Care Election Assistant Name Role Phone Linda Murphy DO Primary Care Provider [phone] Dellogla Neri PharmD Unavailable Unavail able Antionette Murphy PharmD Unavailable [phone] Reason for Visit * Reason Comments Med Refill Encounter Details Date Type Department Care Team ([facility] st Contact Info) Description 04/10/2023 Refill [facility] CH[facility] MED & PEDS [address] [place] [address] Linda Murphy DO 230 [facility] [place] [address] Social History Tobacco Use Types Packs/Day Years [...] documented as of this encounter Care Teams Election Assistant Relationship Specialty Start Date End Date Linda Murphy DO [address] [place] [address] PCP - General Family Medicine 11/24/12 Neri Yang, PharmD [address] [place] [address] Pharmacist Internal Medicine 11/23/22 10/17/23 Antionette Murphy PharmD [address] [place] [address] Pharmacist Internal Medicine 07/15/24 02/25/25 documented as of this encounter
--- OUTSIDE RECORDS SUMMARY | 2025-03-19 11:42 | XMS_ITS | Encounter Summary ---
Author Organization [employer] Address 75 [facility] 7t [place] [address] Care Team Providers Care Delinquent Account Clerk Name Role Phone Linda Murphy DO Primary Care Provider Antionette Murphy PharmD Unavailable [phone] Reason for Visit * Reason Comments Med Refill Encounter Details Date Type Department Care Team ([facility] st Contact Info) Description 11/24/2023 Refill [facility] MEDICINE 230 [place] [address] Linda Murphy DO 230 [place] [address] Social History Tobacco Use Types Packs/Day Years [...] documented as of this encounter Care Teams Delinquent Account Clerk Relationship Specialty Start Date End Date Linda Murphy DO 230 [place] [address] PCP - General Family Medicine 11/24/12 Antionette Murphy PharmD 230 [place] [address] Pharmacist Internal Medicine 07/15/24 02/25/25 documented as of this encounter
--- OUTSIDE RECORDS SUMMARY | 2025-03-19 11:42 | XMS_ITS | Encounter Summary ---
Author Organization [employer] Address [address] [place] [address] 7t [place] [address] Care Team Providers Care Senior Materials Analyst Name Role Phone Linda Murphy DO Primary Care Provider DelNeri zavala PharmD Unavailable Unavail able Antionette Murphy PharmD Unavailable Reason for Referral * Imaging (Routine) - Canceled Specialty Diagnoses / Procedures Referred By Contlauren t Referred To Contact Radiology Diagnoses Hilar mass Procedures CT Chest w/o Contrast Nora Astudillo FNP [address] [place] [address] Phone: tel: fax: [address] Phone: tel: fax: Referral ID Status Reason Start Date Expiration Date V isits Requested Visits Authorized [id number] Canceled 10/11/2023 10/10/2024 1 1 Encounter Details Date Type Department Care Team (Late st Contact Info) Description 10/11/2023 Orders Only [facility] CH[facility] MED & PEDS [address] [place] [address] Nora Astudillo FNP [address] [place] [address] Hilar mass (Primary Dx) Social History Tobacco [...] as of this encounter Care Teams Senior Materials Analyst Relationship Specialty Start Date End Date Linda Murphy DO 230 [place] [address] PCP - General Family Medicine 11/24/12 Neri Yang PharmD 230 [place] [address] Pharmacist Internal Medicine 11/23/22 10/17/23 Antionette Murphy PharmD [address] [place] [address] Pharmacist Internal Medicine 07/15/24 02/25/25 documented as of this encounter
--- OUTSIDE RECORDS SUMMARY | 2025-03-19 11:42 | XMS_ITS | Encounter Summary ---
Author Organization [employer] Address 75 [facility] 7t [place] [address] Care Team Providers Care Supervisor Shop Name Role Phone Linda Murphy DO Primary Care Provider DelNeri zavala PharmD Unavailable Unavail able Antionette Murphy PharmD Unavailable Reason for Visit * Reason Onset Date Comments letter michael lopez 07/26/2023 Encounter Details Date Type Department Care Team (Late st Contact Info) Description 07/26/2023 Telephone [facility] MEDICINE 230 [place] [address] Linda Murphy DO 230 [place], [place] [id number] letter michael lopez Social History Tobacco Use [...] to Medical side. Please contact pt at [phone] documented in this encounter Plan of Treatment [...] as of this encounter Care Teams Supervisor Shop Relationship Specialty Start Date End Date Linda Murphy DO [address] [place] [address] PCP - General Family Medicine 11/24/12 Neri Yang, PharmD [address] [place] [address] Pharmacist Internal Medicine 11/23/22 10/17/23 Antionette Murphy PharmD [address] [place] [address] Pharmacist Internal Medicine 07/15/24 02/25/25 documented as of this encounter
--- OUTSIDE RECORDS SUMMARY | 2025-03-19 11:42 | XMS_ITS | Encounter Summary ---
Author Organization [employer] Address [address] [place] [address] 7t [place] [address] Care Team Providers Care Complaint Investigations Officer Name Role Phone Linda Murphy DO Primary Care Provider Dellogla Neri PharmD Unavailable Unavail able Antionette Murphy PharmD Unavailable Reason for Visit * Reason Comments Med Refill Encounter Details Date Type Department Care Team ([facility] st Contact Info) Description 04/05/2023 Refill [facility] [address] [place] [address] Linda Murphy DO [address] [place] [address] Social History Tobacco Use Types Packs/Day Years [...] documented as of this encounter Care Teams Complaint Investigations Officer Relationship Specialty Start Date End Date Linda Murphy DO [address] [place] [address] PCP - General Family Medicine 11/24/12 Neri Yang, PharmD [address] [place] [address] Pharmacist Internal Medicine 11/23/22 10/17/23 Antionette Murphy, EricD [address] [place] [address] Pharmacist Internal Medicine 07/15/24 02/25/25 documented as of this encounter
--- OUTSIDE RECORDS SUMMARY | 2025-03-19 11:42 | XMS_ITS | Encounter Summary ---
Author Organization [employer] Address [address] [place] [address] 7t [place] [address] Care Team Providers Care Pot Washer Name Role Phone Linda Murphy DO Primary Care Provider DelNeri zavala PharmD Unavailable Unavail able Antionette Murphy PharmD Unavailable Reason for Visit * Reason Comments Med Refill Encounter Details Date Type Department Care Team (Late st Contact Info) Description 07/08/2023 Refill [facility] MEDICINE 230 [place] [address] Linda Murphy DO [address] [place] [address] Pain Social History Tobacco Use Types Packs/Day [...] documented as of this encounter Care Teams Pot Washer Relationship Specialty Start Date End Date Linda Murphy DO [address] [place] [address] PCP - General Family Medicine 11/24/12 Neri Yang, PharmD [address] [place] [address] Pharmacist Internal Medicine 11/23/22 10/17/23 Antionette Murphy PharmD [address] [place] [address] Pharmacist Internal Medicine 07/15/24 02/25/25 documented as of this encounter
--- OUTSIDE RECORDS SUMMARY | 2025-03-19 11:42 | XMS_ITS | Encounter Summary ---
Author Organization [employer] Address 75 [facility] 7t [place] [address] Care Team Providers Care Controller Mechanic Name Role Phone Linda Murphy DO Primary Care Provider Antionette Murphy PharmD Unavailable Reason for Visit * Reason Comments Med Refill Encounter Details Date Type Department Care Team (Late st Contact Info) Description 02/11/2025 Refill [facility] CHC MED & PEDS [address] [place] [address] Linda Murphy DO [address] [place] [address] Chronic low back pain, unspecified back pain [...] documented as of this encounter Care Teams Controller Mechanic Relationship Specialty Start Date End Date Linda Murphy DO [address] [place] [address] PCP - General Family Medicine 11/24/12 Antionette Murphy PharmD [address] [place] [address] Pharmacist Internal Medicine 07/15/24 02/25/25 documented as of this encounter
--- OUTSIDE RECORDS SUMMARY | 2025-03-19 11:42 | XMS_ITS | Encounter Summary ---
Author Organization [employer] Address 75 [facility] 7t [place] [address] Care Team Providers Care Rod Welder Name Role Phone Linda Murphy DO Primary Care Provider Antionette Murphy PharmD Unavailable [phone] Reason for Visit * Reason Onset Date Comments Durable Medical Equipment 03/06/2024 Encounter Details Date Type Department Care Team (Late st Contact Info) Description 03/06/[address] [facility] MEDICINE [address] [place] [address] Linda Murphy DO [address] [place] [address] Durable Medical Equipment Social History Tobacco Use [...] Result Component 6.3(03/02/2025 10:29 AM EDT) No eNri Yang PharmD documented as of this encounter Visit Diagnoses Not on filedocumented in this encounter Additional Health Concerns Assessment Noted Time PHQ-9 Depression Total Score: 0 02/27/20 23 11:42 AM EDT documented as of this encounter Care Teams Rod Welder Relationship Specialty Start Date End Date Linda Murphy DO [address] [place] [address] PCP - General Family Medicine 11/24/12 Antionette Murphy PharmD [address] [place] [address] Pharmacist Internal Medicine 07/15/24 02/25/25 documented as of this encounter
--- OUTSIDE RECORDS SUMMARY | 2025-03-19 11:42 | XMS_ITS | Encounter Summary ---
Author Organization [employer] Address 75 [facility] 7t [place] [address] Care Team Providers Care Director Of Financial Planning Name Role Phone Linda Murphy DO Primary Care Provider [phone] DelNeri zavala PharmD Unavailable Unavail able Antionette Murphy PharmD Unavailable Reason for Visit * Reason Onset Date Comments Letter for School/Work 03/07/2023 Encounter Details Date Type Department Care Team ([facility] st Contact Info) Description 03/07/2023 Telephone [facility] MEDICINE [address] [place] [address] Linda Murphy DO [address] [place] [address] Letter for School/Work Social History Tobacco Use [...] mailed due to COVID Please contact at [phone] documented in this encounter Plan of Treatment [...] documented as of this encounter Care Teams Director Of Financial Planning Relationship Specialty Start Date End Date Linda Murphy DO [address] [place] [address] PCP - General Family Medicine 11/24/12 Neri Yang, PharmD [address] [place] [address] Pharmacist Internal Medicine 11/23/22 10/17/23 Antionette Murphy PharmD [address] [place] [address] Pharmacist Internal Medicine 07/15/24 02/25/25 documented as of this encounter
--- OUTSIDE RECORDS SUMMARY | 2025-03-19 11:42 | XMS_ITS | Encounter Summary ---
Author Organization [employer] Address 75 [facility] 7t [place] [address] Care Team Providers Care Rug Cleaner Helper Name Role Phone Linda Murphy DO Primary Care Provider [phone] Antionette Murphy PharmD Unavailable [phone] Reason for Visit * Reason Comments Med Refill Encounter Details Date Type Department Care Team ([facility] st Contact Info) Description 07/03/2024 Refill [facility] MEDICINE [address] [place] [address] Linda Murphy DO [address] [place] [address] Tobacco dependence Social History Tobacco Use Types [...] documented as of this encounter Care Teams Rug Cleaner Helper Relationship Specialty Start Date End Date Linda Murphy DO [address] [place] [address] PCP - General Family Medicine 11/24/12 Antionette Murphy PharmD [address] [place] [address] Pharmacist Internal Medicine 07/15/24 02/25/25 documented as of this encounter
--- OUTSIDE RECORDS SUMMARY | 2025-03-19 11:42 | XMS_ITS | Clinical Summary ---
Author Organization 175 [facility] Address [address] [place] [address] Phone Care Team Providers Care Sewer Name Role Phone LvelianJoelleLinda Juanito RAMESH Primary Care Provider [phone] Allergies No known active allergies Medications acetaminophen [...] 12/22/2024 Hyperlipidemia 12/22/2024 Type 2 diabetes mellitus ([facility] V24, [facility] V 28) 12/22/2024 Fatty liver 12/22/2024 Status post thyroidectomy 12/22/2024 Hx of papillary thyroid carcinoma 12/22/2024 GERD (gastroesophageal reflux disease) Chronic low back pain 12/22/2024 Leukocytosis 12/22/2024 Toenail avulsion 12/22/2024 Plantar callus 12/22/2024 Onychomycosis 12/22/2024 Encounters Date Type Department Care Team Description 03/04/2025 9:15 AM EDT Office Visit Orthopedic Surgery [place] [address] [address] Gutierrez Ruiz DPM Controlled type 2 diabetes with neuropathy ([facility] V24, [facility] V28) (Primary Dx); Metatarsalgia of right foot; Hammertoes of both feet; Eccrine poroma of foot, left; Dermatophytosis, nail 12/29/2024 1:45 PM EST Office Visit Orthopedic Surgery [facility] [address] [address] Gutierrez Ruiz DPM Controlled type 2 diabetes with neuropathy ([facility] V24, [facility] V28) (Primary Dx); Metatarsalgia of right foot; [...] AM EDT Office Visit Orthopedic Surgery - [place] 250 175 [facility] 250 [place] [address] Gutierrez Ruiz, DPGila [address] [facility] [address] [place] [address] Health Maintenance Due Date Last Done Comments [...] patient's age to complete this topic Insurance [facility] Member Subscriber Plan / Payer (Ef fective 2013-Present) Name:Tisha Ruiz Relation to Subscriber:Self Name:Tisha Ruiz Payer ID:[id number] Group ID:[id number] Type:Not on file Address: [place] [address] [id number] Care Teams Sewer Relationship Specialty Start Date End Date Linda Murphy DO 230 [place], [place] PCP - General Internal Medicine 04/09/19
--- OUTSIDE RECORDS SUMMARY | 2025-03-19 11:42 | XMS_ITS | Clinical Summary ---
Author Organization [employer] Address [address] [place] [address] [address] [place] [address] Care Team Providers Care Pharmacy Coordinator Name Role Phone KatherineLinda Primary Care Provider Allergies Active Allergy Reactions [...] complication, without long-term current use of insulin (CMS/[facility]) Inject 1 each under the skin [...] tions:Chronic obstructive pulmonary disease, unspecified COPD type ([facility]) INHALE 1 AMPULE USING A NEBULIZER FOUR TIMES DAILY NEEDED FOR ASTHMA OR (for COPD) 180 mL 2 07/23/20 24 Active hydrOXYzine pamoate (Vistaril) 50 MG capsule TAKE 1 CAPSULE BY MOUTH THREE TIMES DAILY NEEDED FOR ANXIETY 07/15/20 24 Active Alcohol Swabs (Alcohol Prep) 70 % padsIndication s:Type 2 diabetes mellitus without complication, without long-term current use of insulin ([facility]) USE EVERY DAY UP TO TWICE DAILY 100 each 08/12/20 24 Active glucose blood (FREESTYLE LITE) test stripIndicatio ns:Type 2 diabetes mellitus without complication, without long-term current use of insulin ([facility]) Use to check blood sugar up to twice daily 100 each 08/12/20 24 Active TRUEplus Lancets 33G miscIndication s:Type 2 diabetes mellitus without complication, without long-term current use of insulin ([facility]) Use to check blood sugar up to twice daily 100 each 08/12/20 24 Active semaglutide (Rybelsus) 7 MG tablet TAKE 1 TABLET EVERY MORNING, 30 MINUTES BEFORE A MEAL ICD10= 30 tablet 08/26/20 24 Active glipiZIDE (Glucotrol) 5 MG tablet TAKE 2 TABLETS BY MOUTH TWICE DAILY IN THE MORNING AND EVENING BEFORE MEALS 120 tablet 09/30/20 24 Active loratadine (Claritin) 10 MG tablet TAKE 1 TABLET BY MOUTH EVERY MORNING 30 tablet 10/27/20 24 Active atorvastatin (Lipitor) 40 MG [...] NOON 90 tablet 3 12/23/19 25 Active methocarbamol (Robaxin) 500 MG [...] whether [place] [facility] insulin use (CMS/[facility]) Take 1 tablet (81 mg) by [...] or split. 30 tablet 03/02/20 25 Active metFORMIN XR (Glucophage-XR ) 500 MG 24 hr tabletIndicati ons:Type 2 diabetes mellitus without complication, without long-term current use of insulin (CMS/HCC) TAKE 2 TABLETS BY MOUTH TWICE DAILY AT NOON AND IN THE EVENING 360 tablet 1 03/18/20 25 Active COVID-19 At Home Antigen Test [...] mellitus with other specified complication, unspecified whether director long term care insulin use ([facility]) TAKE 1 TABLET BY MOUTH EVERY EVENING 90 tablet 1 09/02/20 24 025 Discontinued(R eorder (will not trigger notification to Pharmacy)) metFORMIN XR (Glucophage-XR ) 500 MG 24 hr tabletIndicati ons:Type 2 diabetes mellitus without complication, without long-term current use of insulin ([facility]) TAKE 2 TABLETS BY MOUTH TWICE DAILY AT NOON AND IN THE EVENING 360 tablet 1 09/11/20 24 025 Discontinued Lubricants (K-Y Jelly) gel Apply desired amount topically to vaginal area as needed for dryness 113 g 11 12/23/19 25 025 Discontinued(M ed list cleanup (will not trigger notification to Pharmacy)) naproxen (Naprosyn) 500 MG tablet Take 1 tablet (500 mg) by mouth if needed in the morning and at bedtime for mild pain. 30 tablet 12/23/19 25 025 Discontinued(M ed list cleanup [...] -f/u with pain mgmt prn -advised contact HHC if sx change or worsen Leukocytosis 11/08/2023 [...] instrumentation of the toenail - refer to light bulb tester - TB UTD Plantar callus 08/26/2024 01/27/2025 [...] Encounters Date Type Department Care Team Description 03/17/2025 Refill [facility] [address] [place] [address] Linda Murphy DO Type 2 diabetes mellitus without complication, without long-term current use of insulin (CMS/HCC) 03/02/2025 Orders Only GENERIC EXTERNAL DATA DEPARTMENT Provider, Generic External Data 02/26/2025 11:45 AM EDT Office Visit [facility] [address] [place] [phone] Linda Murphy DO Non-small cell cancer of left lung (CMS/HCC) (Primary Dx); S/P lobectomy of lung; Anemia, unspecified type; Epidermal cyst; Type 2 diabetes mellitus without complication, without long-term current use of insulin (CMS/HCC) 02/26/2025 Telephone [facility] [address] [place] [phone] Antionette Murphy, PharmD 02/26/[address] [address] Linda Murphy DO REGISTRATION FORM 02/26/2025 Travel 02/22/2025 Refill [facility] [address] [place] [address] Linda Murphy DO Type 2 diabetes mellitus with other specified complication, unspecified whether [place] [facility] insulin use (CMS/HCC); Chronic low back pain, unspecified back pain laterality, unspecified whether sciatica present 02/17/2025 Orders Only GENERIC EXTERNAL DATA DEPARTMENT Provider, Generic External Data 02/11/2025 Refill [facility] [address] [place] [address] Linda Murphy DO Chronic low back pain, unspecified back pain laterality, unspecified whether sciatica present 02/11/2025 Orders Only GENERIC EXTERNAL DATA DEPARTMENT Provider, Generic External Data 02/08/2025 Telephone [facility] [place] [address] Linda Murphy DO Pre-op 02/01/2025 Orders Only GENERIC EXTERNAL DATA DEPARTMENT Provider, Generic External Data 01/28/2025 Refill [facility] [place] [address] Linda Murphy DO 01/27/2025 11:15 AM EDT Office Visit [address] [place] [address] Linda Murphy DO Pre-op examination (Primary Dx); Type 2 diabetes mellitus without complication, without long-term current use of insulin ([facility]); Encounter for screening mammogram for malignant neoplasm of breast; Encounter for screening for malignant neoplasm of colon 01/27/2025 Travel 01/19/2025 11:45 AM EDT Telemedicine [facility] [place] [address] Linda Murphy DO Chest congestion (Primary Dx); Preop examination 01/19/[address] [address] Linda Murphy DO 01/19/2025 Travel 01/18/2025 Refill [facility] [address] [place] [address] Linda Murphy DO Chronic low back pain, unspecified back pain laterality, unspecified whether sciatica present 01/12/[address] [address] No Lopez, KRYSTYNA NCNS 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 [employer]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[employer] RV today 01/07/[address] [address] No Lopez RN NCNS for MANAGER E[employer]ERAL DIRECTOR RV today 01/07/[address] [address] No Lopez RN Recommend MANAGER [employer]ERAL DIRECTOR Tier 2 01/05/2025 Orders Only GENERIC EXTERNAL DATA DEPARTMENT Provider, Generic External Data 12/23/2024 Refill [facility] [address] [place] [address] Linda Murphy, Chronic GERD 12/21/2024 Refill [facility] [address] [place] [address] Linda Murphy, Chronic low back pain, unspecified back pain laterality, unspecified whether sciatica present from Last 3 Months Immunizations Name Administration [...] Screening 01/27/2026 01/27/2025 Lipid Panel 03/02/2026 03/02/2025, 1001/2024, 08/26/2023, Additional history exists Diabetes: Foot Exam [...] 10:29 AM EDT) No Neri Yang, Kaiden Procedures Procedure Name Priority Date/Time Associated Diagnosis Comments AMB REFERRAL TO PODIATRY Routine 03/04/2025 Toenail avulsion, initial encounter Plantar callus Onychomycosis of multiple toenails with type 2 diabetes mellitus (CMS/HCC) (CMS/HCC) THYROGLOBULIN, TUMOR MARKER W/REFLEX Routine 03/02/2025 10:29 [...] complication, without long-term current use of insulin ([facility]) CBC WITH AUTO DIFFERENTIAL Routine 02/17/2025 10:20 [...] complication, without long-term current use of insulin ([facility]) POCT GLUCOSE Routine 01/27/2025 11:54 AM EDT Pre-op examination Type 2 diabetes mellitus without complication, without long-term current use of insulin ([facility]) XR CHEST 2 VIEWS STAT 01/20/2025 [...] Podiatry (03/04/2025) Asuncion Bailey MD OUTPATIENT REFERRAL [place] [facility] Final Result * (ABNORMAL) Thyroglobulin, LC/MS/MS (03/02/2025 10:29 AM EDT) Thyroglobulin, LC/MS/MS 0.2(A) ng/mL [facility] Comment:Reference Range: Int act Thyroid 2.8-40.9 Athyrotic <0.1 Note: Abnormal flagging is based on the reference interval for patients with intact thyroid.This test was performed using the Zazengochemiluminescent method. Values obtained fromdifferent assay methods cannot be usedinterchangeably. Thyroglobulin levels, regardlessof value, should not be interpreted as absoluteevidence of the presence or absence of disease. Thyroglobulin Comment See Below [facility] Comment:Thyroglobulin antibo dies (TGAB) interfere withthyroglobulin (TG) assays; therefore, TGAB assayshould always be performed in conjunction with aTG assay.For additional information, please refer tohttp://education.Dynamic Yield/faq/ZWW036(This link is being provided for informational/educational purposes only.)THIS TEST WAS PERFORMED AT:[facility] [place] [id number] DURANT MD 03/02/2025 10:2 9 AM EDT 03/02/2025 10:29 AM EDT us Generic External Data Provider LAB BLOOD ORDERAB LES Final Result [facility] [address] [place] [phone] * (ABNORMAL) Thyroblobulin, Tumor Marker w/Reflex (03/02/2025 10:29 AM EDT) Thyroglobulin Antibody <1 <=1 IU/mL [facility] Comment:This Thyroglobulin a ntibody test was performedusing the [place] Chemiluminescent method.Values obtained from different assay methods cannot beused interchangeably. Thyroglobulin antibody levels,regardless of value, should not be interpreted asabsolute evidence of the presence or absence ofdisease. Thyroglobulin, LC/MS/MS TNP [facility] Thyroglobulin Level 0.2(A) ng/mL [facility] Comment:Reference Range: Ath yrotic: <0.1 ng/mLReference range applies to differentiated thyroidcancer patients following treatment. The presence ofmeasurable thyroglobulin indicates the presence ofthyroglobulin-producing thyroid tissue. Clinicalcorrelation is advised.This Thyroglobulin test was performed using theZazengo Chemiluminescent method. Valuesobtained from different assay methods cannot beused interchangeably. Thyroglobulin levels, regardlessof value, should not be interpreted as absoluteevidence of the presence or absence of disease.THIS TEST WAS PERFORMED AT:[employer] [id number] [place] [id number] ROJAS MD,PHD 03/02/2025 10:2 9 AM EDT 03/02/2025 10:29 AM EDT us Generic External Data Provider LAB BLOOD ORDERAB LES Final Result [facility] [address] [place] [phone] * Vitamin D, 25-Hydroxy, Total, Immunoassay (03/02/2025 10:29 AM EDT) Vitamin D 25-OH Total 32.0 >30 ng/mL [facility] Comment: Health Based Reference Values*< 20 ??ng/mL ??Zemlfxopg81-37 ng/mL ??Insufficient> 30 ??ng/mL ??Sufficient*Amado LARA. N [...] ORDERABLES Final R esult Performing Organization Address [facility] Co de Phone Number [facility] [address] [place] [phone] * Vitamin B12 (Cobalamin) and Folate Panel, Serum (03/02/2025 10:29 AM EDT) Vitamin B12 364 200 - 900 pg/mL [facility] Comment:NORMAL 200-900 PG/ML INDETERMINATE 160-199 PG/ML DEFICIENT < 160 PG/ML Folate 11.2 > or = 4.0 ng/mL [facility] Comment:Reference Values:> o r = 4.0 ng/mL< 4.0 ng/mL suggests folate deficiency Methotrexate, aminopterin and folinic acid(leucovorin) are chemotherapeutic agents whose molecularstructures are similar to folate; therefore, the Architectfolate assay cannot be used for patients using these drugs. Blood 03/02/2025 10:2 9 AM EDT 03/02/2025 10:29 AM EDT Linda Murphy LAB BLOOD ORDERABLES Final R esult Performing Organization Address [facility]/ZIP Co de Phone Number [facility] [address] [place] [phone] * (ABNORMAL) CBC auto differential (03/02/2025 10:29 AM EDT) Only the most recent of3 resultswithin the time period is included. White Blood Count 11.9(H) 4.8 - 10.8 X10*3/uL [facility] Red Blood Count 3.29(L) 4.20 - 5.50 X10*6/uL [facility] Hemoglobin 9.4(L) 12.0 - 16.0 g/dl [facility] Hematocrit 28.9(L) 37.0 - 47.0 % [facility] Mean Corpuscular Volume 87.8 80.0 - 98.0 fL [facility] Mean Corpuscular Hemoglobin 28.6 27.0 - 33.0 pg [facility] Mean Corpuscular HGB Conc 32.5 31.0 - 35.0 g/dl [facility] Red Cell Distribution Width 14.6 11.0 - 16.0 % [facility] Platelet Count 534(H) 160 - 400 X10*3/uL [facility] Mean Platelet Volume 9.3(L) 9.4 - 12.3 fL [facility] Neutrophils Percent Auto 65.3 45 - 73 % [facility] Imm Gran Pct Auto 0.7(H) 0.0 - 0.4 % [facility] Lymphocytes Percent Auto 19.9(L) 20 - 40 % [facility] Monocytes Percent Auto 8.2 2 - 11 % [facility] Eosinophils Percent Auto 5.1(H) 0 - 4 % [facility] Basophils Percent Auto 0.8 0 - 2 % [facility] NRBC Pct Auto 0.0 0.0 - 0.2 /100WBC [facility] Neutrophils Absolute Auto 7.8 2.0 - 8.3 x10*3/uL [facility] Imm Gran Abs Auto 0.08(H) 0.00 - 0.03 X10*3/uL [facility] Lymphocytes Absolute Auto 2.4 1.2 - 4.9 X10*3/uL [facility] Monocytes Absolute Auto 1.0 0.1 - 1.2 X10*3/uL [facility] Eosinophils Absolute Auto 0.6(H) 0.0 - 0.4 X10*3/uL [facility] Basophils Absolute Auto 0.1 0.0 - 0.2 X10*3/uL [facility] NRBC Abs Auto 0.000 0.0 - 0.012 X10*3/uL [facility] Blood Venous blood specimen / Unknown 03/02/2025 10:29 AM EDT 03/02/2025 10:29 AM EDT Linda Murphy LAB BLOOD ORDERABLES Final R esult Performing Organization Address [facility] Co de Phone Number [facility] [address] [place] [phone] * (ABNORMAL) Iron And Total Iron Binding Capacity (03/02/2025 10:29 AM EDT) Pathologist [facility] Iron 28(L) 30 - 160 mcg/dL [facility] Total Iron Binding Capacity 251 228 - 428 mcg/dL [facility] Percent Iron Saturation 11(L) 15 - 50 % [facility] Unsaturated Iron Binding 223 ug/dL [facility] Blood Venous blood specimen / Unknown 03/02/2025 10:29 AM EDT 03/02/2025 10:29 AM EDT Linda Murphy LAB BLOOD ORDERABLES Final R esult Performing Organization Address [facility] Co de Phone Number [facility] [address] [place] [phone] * Thyroglobulin Antibodies (03/02/2025 10:29 AM EDT) Thyroglobulin Antibodies <1 < or = 1 IU/mL [facility] Comment:THIS TEST WAS PERFOR MED AT:[facility] [place] [phone] DURANT MD 03/02/2025 10:2 9 AM EDT 03/02/2025 10:29 AM EDT Generic External Data Provider LAB BLOOD ORDERAB LES Final Result Performing Organization Address [facility] Co de Phone Number [facility] [address] [place] [phone] * (ABNORMAL) TSH (03/02/2025 10:29 AM EDT) Only the most recent of2 resultswithin the time period is included. Thyroid Stimulating Hormone 14.79(H) 0.32 - 4.0 uIU/mL [facility] Comment:Note: A sustained TS H level above 2.5 uIU/mL may warrant further investigation. TSH 3rd Generation ([facility]) 03/02/2025 10:2 9 AM EDT 03/02/2025 10:29 AM EDT us Generic External Data Provider LAB BLOOD ORDERAB LES Final Result Performing Organization Address [facility] de Phone Number [facility] [address] [place] [phone] * T4, Free (03/02/2025 10:29 AM EDT) Only the most recent of2 resultswithin the time period is included. Free T4 (Free Thyroxine) 1.35 0.71 - 1.85 ng/dL [facility] 03/02/2025 10:2 9 AM EDT 03/02/2025 10:29 AM EDT us Generic External Data Provider LAB BLOOD ORDERAB LES Final Result Performing Organization Address [facility] Co de Phone Number [facility] [address] [place] [phone] * (ABNORMAL) Hemoglobin A1c (03/02/2025 10:29 AM EDT) Only the most recent of2 resultswithin the time period is included. Hemoglobin A1c 6.3(H) <6.0 % [facility] Comment:Hemoglobin A1C Refer ence Range Adults: 4.8 - 6.0 % Non diabetic: < 6.0 % Goal: < 7.0 %Additional Action Suggested: > 8.0 %Note: Hemoglobin A1c results are invalid for patients with abnormal amounts of HbF. Blood transfusions may impact the HbA1c concentration in the patient sample. Estimated Average Glucose 134 mg/dL [facility] Comment:eAG = Estimated ave rage glucose which is %A1C expressed asaverage glucose, using the formula of the W1U-SjguncbQdevkcg Glucose study (ADAG), Diabetes Care, Vol.31,#8,2007 Blood Venous blood specimen / Unknown 03/02/2025 10:29 AM EDT 03/02/2025 10:29 AM EDT Linda Murphy DO LAB BLOOD ORDERABLES Final R esult [facility] [address] [place] [phone] * Ferritin (03/02/2025 10:29 AM EDT) Ferritin 241 10 - 250 ng/mL [facility] Blood Venous blood specimen / Unknown 03/02/2025 10:29 AM EDT 03/02/2025 10:29 AM EDT [facility]LOOD ORDERABLES Final R esult Performing Organization Address City/[facility]/ZIP Co de Phone Number [facility] [address] [place] [phone] * (ABNORMAL) Hepatic Function Panel (03/02/2025 10:29 AM EDT) Bilirubin, Total 0.3 0.0 - 1.0 mg/dL [facility] Bilirubin, Direct 0.1 0.0 - 0.5 mg/dL [facility] Aspartate Amino Transferase 21 5 - 31 U/L [facility] Alanine Aminotransferase 22 0 - 31 U/L [facility] Total Protein 7.3 6.5 - 8.0 g/dL [facility] Albumin Level 4.0 3.5 - 5.0 g/dL [facility] Alkaline Phosphatase 121(H) 39 - 117 U/L [facility] Blood Venous blood specimen / Unknown 03/02/2025 10:29 AM EDT 03/02/2025 10:29 AM EDT us Linda Murphy DO LAB BLOOD ORDERABLES Final R esult [facility] [address] [place] [phone] * Lipid Panel, Standard (03/02/2025 10:29 AM EDT) Triglycerides 147 <150 mg/dL [facility] Comment:Desirable Triglyceri de: less than 150 mg/dLBorderline High Triglyceride 150-199 mg/dLHigh Triglyceride: 200-499 mg/dLVery High Triglyceride: greater than or equal to 5OO mg/dL Cholesterol 137 <200 mg/dL [facility] Comment:Desirable Cholestero l: less than 200 mg/dLBorderline High Cholesterol: 200-239 mg/dLHigh Cholesterol: greater than 239 mg/dL LDL Cholesterol Calculated 65 <100 mg/dL [facility] Comment:Desirable LDL: less than 100 mg/dLNear Optimal/Above Optimal LDL: 110- 129 mg/dLBorderline High LDL: 130-159 mg/dLHigh LDL: 160-189 mg/dLVery High LDL: greater than or equal to 190 mg/dL HDL Cholesterol 43 >40 mg/dL [facility] Comment:Desirable HDL: great er than 40 mg/dL Note: This HDL assay may give artificially low results in patients with liver disease. Blood Venous blood specimen / Unknown 03/02/2025 10:29 AM EDT 03/02/2025 10:29 AM EDT Linda Katherine DO LAB BLOOD ORDERABLES Final R esult Performing Organization Address [facility] Co de Phone Number [facility] [address] [place] [phone] * (ABNORMAL) Basic Metabolic Panel (03/02/2025 10:29 AM EDT) Only the most recent of2 resultswithin the time period is included. Sodium 138 135 - 145 mmol/L [facility] Potassium 4.2 3.3 - 5.1 mmol/L [facility] Chloride 102 96 - 108 mmol/L [facility] Carbon Dioxide 28 22 - 29 mmol/L [facility] Anion Gap 12 12 - 20 [facility] Urea Nitrogen (BUN) 9 9 - 16 mg/dL [facility] Creatinine, Serum 1.09 0.5 - 1.4 mg/dL [facility] Estimated Glomerular Filt Rate 53 [facility] Comment:Chronic Kidney Disea se: Estimated GFR < 60 mL/min/1.00q0Cxuwrr Kidney Disease: Estimated GFR < 15 mL/min/1.73m2 Glucose 198(H) 60 - 115 mg/dL [facility] Calcium 9.1 8.4 - 10.2 mg/dL [facility] Blood Venous blood specimen / Unknown 03/02/2025 10:29 AM EDT 03/02/2025 10:29 AM EDT Linda Murhpy DO LAB BLOOD ORDERABLES Final R esult Performing Organization Address City/[facility]/ZIP Co de Phone Number [facility] [address] [place] [phone] * (ABNORMAL) POCT HGB A1C (02/26/2025 [...] Media Lot # [id number] Lot# Expiration Date ,025 Blood Capillary blood specimen / Unknown 02/26/2025 12:13 PM EDT Linda Awanelian DO POINT OF CARE TEST ENTER/JAME T ORDERABLES Final Result * XR Chest 1 View (02/15/2025 10:10 AM EDT) Only the most recent of8 resultswithin the time period is included. Anatomical Region Laterality Modality Chest Radiographic Rosaura ging 02/15/2025 10:1 0 AM EDT Narrative 02/15/2025 10:47 AM EDT ? [facility] ?[address] ?[place] [address] ?XRay Report ? Signed ? Patient: Sara,Tisha ?MR#: [id number] ?? 61 ? : 1970 ?Acct:[id number] ? Age/Sex: 54 / F ?ADM Date: // ? Loc: [facility] ?478-1 ? Attending Silva Hoyt MD ? Ordering Physician: Rose Michelle PA-C ?? Date of Service: 02/15/25 ?? Procedure(s): XR chest 1V ?? Accession Number(s): [id number] ? cc: Linda Murphy DO; Rose Michelle [...] DD/ 1010 ? TD/TT: 02/15/25 1034 ? [employer] Workers: ? Procedure Note Elena Roth - 02/15/2025 [place] [address] XRay Report Signed Patient: Asmita Ruiz#: [id number] 61 : 1970Acct:[id number] Age/Sex: 54 / FADM Date: 02/11/25 Loc: [facility] 478-[address]: Mario Hoyt MD Ordering Physician: Rose Michelle PA-C Date of Service: 02/15/25 Procedure(s): XR chest 1V Accession Number(s): [id number] cc: Linda Murphy DO; Rose Michelle PA-C [...] 02/15/25 1043 DD/ 1010 TD/TT: 02/15/25 1034 [employer] Workers: [facility] External Provider IMG XR PROCEDURES Final Result * (ABNORMAL) Glucose, Whole Blood (02/11/2025 6:35 AM EDT) Only the most recent of2 resultswithin the time period is included. Glucose, Whole Blood 152(H) 60 - 115 mg/dL [facility] Comment:METER #: [id number] 02/11/2025 6:35 AM EDT 02/11/2025 6:39 AM EDT Generic External Data Provider LAB BLOOD ORDERAB LES Final Result [facility] [address] [place] [phone] * Type and screen (02/01/2025 11:11 AM EDT) Blood Type ON [facility] Antibody Screen NEGATIVE [facility] 02/01/2025 11:1 1 AM EDT 02/01/2025 11:28 AM EDT Narrative [facility] - 02/01/2025 12:04 PM EDT Spec expiration changed by SHIRLEY on 02/01/25Reason: PATWITNESSED BY BIRGIT:Call Blood Bank (ext. [phone]) to band patient on admission.Type and Screen in effect until 2300 on 02/11/25. us Generic External Data Provider LAB BLOOD BANK TE ST ORDERABLES Final Result [facility] [address] [place] [address] [phone] * XR Chest 2 Views (01/20/2025 11:30 AM EDT) Anatomical Region Laterality Modality Chest Radiographic Rosaura ging 01/20/2025 11:3 0 AM EDT Narrative 01/20/2025 11:50 AM EDT ? [facility] ?[address] ?[place] [address] ?XRay Report ? Signed ? Patient: Tisha Ruiz ?MR#: [id number] ?? 61 ? : 1970 ?Acct:[id number] ? Age/Sex: 54 / F ?ADM Date: 01/20/25 ? Loc: HO.XRAY ? Attending Dr: Geneva Candelario MD ? Ordering Physician: Linda Murphy DO ?? Date of Service: 01/20/25 ?? Procedure(s): XR chest 2V ?? Accession Number(s): [id number] ? cc: Linda Murphy DO ? EXAMINATION: [...] DD/ 1130 ? TD/TT: 01/20/25 1140 ? [employer]: ? Procedure Note Donotmarkellinterpreter, Image - 01/20/2025 [place] [address] XRay Report Signed Patient: Ayanna RuiznMR#: [id number] 61 : 1970Acct:[id number] Age/Sex: 54 / FADM Date: 01/20/25 Loc: [facility] Attending Dr: Geneva Candelario MD Ordering Physician: Lnida Murphy DO Date of Service: 01/20/25 Procedure(s): XR chest 2V Accession Number(s): [id number] cc: Linda Murphy DO EXAMINATION: XR CHEST [...] 01/20/25 1148 DD/ 1130 TD/TT: 01/20/25 1140 [employer]: Linda Murphy DO IMG XR PROCEDURES Final Resu lt * (ABNORMAL) Partial Thromboplastin Time, Activated (APTT) (01/20/2025 11:26 AM EDT) Partial Thromboplastin Time 44.2(H) 26.0 - 36.8 SEC [facility] Comment:For information rega rding the monitoring of direct thrombininhibitors, please refer to Pharmacy. Blood Venous blood specimen / Unknown 01/20/2025 11:26 AM EDT 01/20/2025 11:26 AM EDT Linda Murphy DO LAB BLOOD ORDERABLES Final R esult Performing Organization Address City/[facility] Co de Phone Number [facility] [address] [place] [address] [phone] * (ABNORMAL) Prothrombin Time-INR (01/20/2025 11:26 AM EDT) Prothrombin Time 10.1(L) 10.9 - 12.4 SEC [facility] INTERNATIONAL NORM RATIO 0.9 0.9 - 1.1 [facility] Comment:INTERNATIONAL NORMAL IZED RATIO [...] ORDERABLES Final R esult Performing Organization Address City/[facility]/ZIP Co de Phone Number [facility] [address] [place] [phone] * Gross and Microscopic Level 4 (01/05/2025 10:57 AM EST) 01/05/2025 10:5 7 AM EST 01/05/2025 11:19 AM EST Narrative [facility] - 01/26/2025 8:48 AM EDT ----- ------- Name: Ayanna Ruizn ? Age/Sex: 54/F ? : 1970 Unit#: [id number] ?? Attend Dr: Mario Hoyt MD ?Re01/05/25 ?Status: DEP SDC ? Location: HO.SSS ?Disch: ? ----- ------- SPEC : [id number] ?RECD: 01/05/25-1118 ? STATUS: ??SOUT ? REQ NUM: [id number] ? HILARY: 01/05/25-1057 ? SUBM DR: Rogelio [...] ? Age/Sex: 54/F ? : 1970 Unit#: [id number] ?? Attend Dr: Mario Hoyt MD ?Re01/05/25 ?Status: DEP SDC ? Location: HO.SSS ?Disch: ? ----- ------- SPEC : [id number] ?RECD: 01/05/25-1119 ? STATUS: ??SOUT ? REQ NUM: [id number] ? HILARY: 01/05/25-1056 ? SUBM DR: Rogelio [...] 0914 ? ----- ------- Addendum ??1 ?Entered: 01/07/251406 Immunostains show the tumor is positive for TTF 1 and Napsin A, confirming pulmonary origin. Controls stain appropriately. PD-L1 and molecular studies will be attempted but the tissue is scant; report to follow. Addendum Signed (signature on file) Anuradha Bhavana 01/07/252 ? ----- ------- ? Diagnosis ?? Lung, [...] ON NEXT PAGE ----- ------- Name: Tisha Riuz ? Age/Sex: 54/F ? : 1970 Unit#: [id number] ?? Attend Dr: Mario Hoyt MD ?Re01/05/25 ?Status: DEP SDC ? Location: HO.SSS ?Disch: ? ----- ------- SPEC : [id number] ?RECD: 01/05/25-1118 ? STATUS: ??SOUT ? REQ NUM: [id number] ? HILARY: 01/05/25-1056 ? SUBM DR: Rogelio [...] Copies To: ?? Linda Murphy DO ?? [facility] ?? [address] ?? [place] ?? [phone] ?? Mario Hoyt MD ?? [facility] ?? [address] ?? [place] ?? [phone] ?? [email or web address] ?? Rogelio Sales ?? [address] ?? [place] ?? [phone] ?? [email or web address] ----- ------- Signed (signature on file) Anuradha Bhavana 01/06/25 1718 ? ----- ------- ? END OF REPORT ? us Generic External Data Provider LAB CYTOLOGY BEVERLYE CHICHO Final Result [facility] [address] [place] [address] [phone] * CT Biopsy Lung Left (01/05/2025 10:18 AM EST) Anatomical Region Laterality Modality Computed Tomogra phy 01/05/2025 10:1 8 AM EST Narrative 01/06/2025 2:23 PM EST ? [facility] ?[address] ?[place] [address] ? CT Scan Report ? Signed ? Patient: Tisha Ruiz ?MR#: [id number] ?? 61 ? : 1970 ?Acct:[id number] ? Age/Sex: 54 / F ?ADM Date: 01/05/25 ? Loc: HO.SSS ? Attending Dr: Mario Hoyt MD ? Ordering Physician: Mario Hoyt MD ?? Date of Service: 01/05/25 ?? Procedure(s): CT biopsy lung LT ?? Accession Number(s): [id number] ? cc: Linda Murphy DO; Mario Hoyt MD ? Report Number: ?? [id number]: Total DLP = ??490.00 mGy-cm ?? 54-year-old [...] DD/ 1018 ? TD/TT: 01/05/25 1119 ? [employer] Workers: ? 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, Image - 01/06/[address] [address] [address] Scan Report Signed Patient: Ayanna RuiznMR#: [id number] 61 : 1970Acct:[id number] Age/Sex: 54 / FADM Date: 01/05/25 Loc: [facility] Attending Dr: Mario Hoyt MD Ordering Physician: Mario Hoyt MD Date of Service: 01/05/25 Procedure(s): CT biopsy lung LT Accession Number(s): [id number] cc: Linda Murphy DO; Mario Hoyt MD Report Number: [id number]: Total DLP = 490.00 mGy-cm 54-year-old female [...] by: Bharathi Land MD 01/06/2025 02:20 PM [facility] Dictated By: Rogelio Sales Signed By: <Electronically signed by Rogelio Sales in [place]> 01/06/25 1420 <Electronically signed by Bharathi Land MD in OV> 01/06/25 1423 DD/ 1018 TD/TT: 01/05/25 1119 [employer]: us [facility] External Provider IMG CT PROCEDURES Final Result * Albumin, Random Urine W/Creatinine (08/13/2024 3:30 PM EDT) Creatinine, Urine 21.51 mg/dL [facility] Microalbumin Urine <5.0 mg/L [facility] Microalbum Creatinine Ratio Ur TNP <30 ug/mg cr [facility] Comment:Unable to calculate albumin/creatinine ratio due to lowmicroalbumin or creatinine result. Urine (Urine, Random) 08/13/2024 3:30 PM EDT 08/13/2024 3:38 PM EDT Linda Garciadillonelian LAB URINE ORDERABLES Final R esult Performing Organization Address [facility]/ZIP Co de Phone Number [facility] [address] [place] [address] [phone] * HIV Ab/Ag (GA DP) (08/26/2023 2:47 PM EDT) HIV AB/AG Nonreactive Nonreactive [facility] Comment:HIV-1 p24 Ag and/or HIV-1/HIV-2 Ab not detected.A test result that is nonreactive does not exclude thepossibility of exposure to or infection with HIV-1 and/orHIV-2. Nonreactive results in this assay for individualswith prior exposure to HIV-1 and/or HIV-2 may be due toantigen and antibody levels that are below the limit ofdetection of this assay.The [email or web address] HIV Ag/Ab Combo assay result andsupplemental assay results should be interpreted inconjunction with the patient's clinical presentation,history and other laboratory results. If the results areinconsistent with clinical evidence, additional testing issuggested to confirm the result. 08/26/2023 2:47 PM EDT 08/26/2023 2:47 PM EDT us Linda Murphy DO LAB BLOOD ORDERABLES Final R esult Performing Organization Address City/[facility]/ZIP Co de Phone Number [facility] [address] [place] [address] [phone] * Hepatitis C Antibody with Reflex to HCV, RNA, Quantitative, Real-Time PCR (08/26/2023 2:47 PM EDT) Hepatitis C Antibody Nonreactive Nonreactive [facility] Comment:Antibodies to HCV no t detected; does not exclude early acuteHCV infection. 08/26/2023 2:47 PM EDT 08/26/2023 2:47 PM EDT Linda Murphy DO LAB BLOOD ORDERABLES Final R esult [facility] [address] [place] [address] [phone] * HPV E6/E7 RFLX LUIS 16 18/45 (05/21/2022 3:45 PM EDT) HPV mRNA E6/E7 rflx Not Detected Not Detected [facility] Comment: Methodology: Diagnostic Cardiac Sonographer-Mediated Amplification This assay detects E6/E7 viral messenger RNA (mRNA) from 14 high-risk HPV types (16,18,31,33,35,39,45,51,52,56,58,59,66,68). Cervical sources are required for HPV testing. If a vaginal source from a patient who has had a total hysterectomy with removal of cervix was submitted, please contact the testing laboratory for alternative testing options. For additional information, please refer to http://education.[employer]/faq/URF446n2 (This link if provided for information/ educational purposes only.) THIS TEST WAS PERFORMED AT: [facility] [address] [place] [address],[address] [place], [place] ??[phone] VALERIA DURANT MD 05/21/2022 3:45 PM EDT Fercho Palmer MD HISTORICAL/NON ORDERABLE LABS Fi nal Result Performing Organization Address [facility]/ZIP Co de Phone Number [facility] [address] * Pap Smear (02/15/2022 12:00 AM EDT) Swab Linda Murphy DO LAB CYTOLOGY ORDERABLES Ce l Result [employer] [address] [place] [address], [place] [address] * DIGITAL BILATERAL SCREEN 1 (04/01/2019 2:56 [...] Most Recently Relevant to Health Maintenance Insurance [facility] < 65 [facility] Care Teams Pharmacy Coordinator Relationship Specialty Start Date End Date Linda Murphy DO [address] [place] [phone] PCP - General Family Medicine 11/24/12
--- OUTSIDE RECORDS SUMMARY | 2025-03-19 11:42 | XMS_ITS | Encounter Summary ---
Author Organization [employer] Address [address] [facility] [address] [place] [address] Care Team Providers Care Title Investigator Name Role Phone Linad Murphy DO Primary Care Provider Antionette Murphy PharmD Unavailable [phone] Reason for Visit * Reason Comments Med Refill Encounter Details Date Type Department Care Team ([facility] st Contact Info) Description 02/23/2024 Refill [facility] [address] [place] [address] Linda Murphy DO [address] [place] [address] Chronic obstructive pulmonary disease, unspecified COPD type [...] documented as of this encounter Care Teams Title Investigator Relationship Specialty Start Date End Date Linda Murphy DO [address] [place] [address] PCP - General Family Medicine 11/24/12 Antionette Murphy PharmD [address] [place] [address] Pharmacist Internal Medicine 07/15/24 02/25/25 documented as of this encounter
== END 2025-03-19 11:39 | disposition home or self-care (01) ==
LOC: HO.ENCR 11:14
PROVIDERS: PCP Family Medicine; Visit Provider Student in an Organized Health Care Education/Training Program
DX: Z85.850 Personal history of malignant neoplasm of thyroid (principal); E89.0 Postprocedural hypothyroidism
CPT/HCPCS: 99214; G2211

== ENCOUNTER → 2025-03-19 11:13 | Outpatient (BNVA) | payer OTHER, SELFPAY | PROVIDERS: PCP Family Medicine; Visit Provider Student in an Organized Health Care Education/Training Program | DX: E89.0 Postprocedural hypothyroidism (principal); Z85.850 Personal history of malignant neoplasm of thyroid | CPT/HCPCS: 99212 ==

== ENCOUNTER → 2025-04-15 08:00 | Outpatient (BNV) | payer OTHER, SELFPAY | PROVIDERS: Visit Provider Internal Medicine | DX: C34.32 Malignant neoplasm of lower lobe, left bronchus or lung (principal) | CPT/HCPCS: 99205; G2211 ==

== ENCOUNTER 2025-04-26 10:35 | Outpatient (REF) | payer OTHER, SELFPAY ==
--- NOTE | ~2025-04-26 | XR_ITS ---
EXAMINATION: XR FEMUR, RIGHT CLINICAL INFORMATION: severe Rt anterior thigh pain for 2 months COMPARISON: None available. TECHNIQUE: AP and lateral views of the right femur were obtained. FINDINGS: No acute fracture is identified. Stippled somewhat linear calcific densities are visible in the medial and lateral joint line of the knee, probably meniscal and possibly also articular cartilage in nature. There are small medial joint line osteophytes of the knee. XR/XR femur RT 2V IMPRESSION: Calcium pyrophosphate deposition is present in the knee joint line and there are small medial compartmental osteophytes. Electronically signed by: Raulito Pillai MD 04/26/2025 01:27 PM EDT
--- OUTSIDE RECORDS SUMMARY | 2025-04-26 11:51 | XMS_ITS | Encounter Summary ---
Author Organization [employer] Address [address] [facility] [address] [place] [address] Care Team Providers Care Garnett Feeder Name Role Phone Linda Murphy DO Primary Care Provider [phone] Dellogla Neri PharmD Unavailable Unavail able Antionette Murphy PharmD Unavailable Reason for Visit * Reason Comments Med Refill Encounter Details Date Type Department Care Team (Late st Contact Info) Description 04/10/2023 Refill [facility] [address] [place] [address] Linda Murphy DO [address] [facility] [place] [address] Social History Tobacco Use Types Packs/Day Years [...] Department Care Team (Late Contact Info) Description 05/24/2025 11:30 AM EDT Clinical Support [facility] [address] [place] [address] No Lopez, KRYSTYNA documented as of this encounter Goals Goal Patient Goal Type Associated Problems Recent Progress Patient-Stated? Author Hemoglobin A1c < 7 Result Component 7.8(04/21/2025 11:36 AM EDT) No Neri Yang, PharmD documented as of this encounter Visit Diagnoses Not on filedocumented in this encounter Additional Health Concerns Assessment Noted Time PHQ-9 Depression Total Score: 0 02/27/20 23 11:42 AM EDT documented as of this encounter Care Teams Garnett Feeder Relationship Specialty Start Date End Date Linda Murphy DO [address] [place] [phone] PCP - General Family Medicine 11/24/12 Neri Yang, PharmD [address] [place] [phone] Pharmacist Internal Medicine 11/23/22 10/17/23 Antionette Murphy PharmD [address] [place] [phone] Pharmacist Internal Medicine 07/15/24 02/25/25 documented as of this encounter
[2025-04-26 13:00] LABS: MANUAL DIFF FLAG NO
[2025-04-26 13:10] LABS: Basophils Absolute Auto 0.1 X10*3/uL (0.0-0.2); Basophils Percent Auto 0.5 % (0-2); Eosinophils Absolute Auto 0.2 X10*3/uL (0.0-0.4); Eosinophils Percent Auto 2.3 % (0-4); Hematocrit 34.7 % (37.0-47.0); Hemoglobin 10.9 g/dl (12.0-16.0); Imm Gran Abs Auto 0.03 X10*3/uL (0.00-0.03); Imm Gran Pct Auto 0.3 % (0.0-0.4); Lymphocytes Absolute Auto 2.2 X10*3/uL (1.2-4.9); Lymphocytes Percent Auto 21.2 % (20-40); Mean Corpuscular HGB Conc 31.4 g/dl (31.0-35.0); Mean Corpuscular Hemoglobin 24.6 pg (27.0-33.0); Mean Corpuscular Volume 78.3 fL (80.0-98.0); Monocytes Absolute Auto 0.6 X10*3/uL (0.1-1.2); Monocytes Percent Auto 5.5 % (2-11); Neutrophils Absolute Auto 7.3 x10*3/uL (2.0-8.3); Neutrophils Percent Auto 70.2 % (45-73); Platelet Count 401 X10*3/uL (160-400); Red Blood Count 4.43 X10*6/uL (4.20-5.50); Red Cell Distribution Width 16.1 % (11.0-16.0); White Blood Count 10.4 X10*3/uL (4.8-10.8)
[2025-04-26 13:18] LABS: Estimated Average Glucose 174 mg/dL; Hemoglobin A1C 174.5328 umol/L; Hemoglobin A1c % 7.7 % (<6.0); Total Hemoglobin (HGBA1C) 2860.2905 umol/L
[2025-04-26 13:21] LABS: Creatinine Urine 52.62 mg/dL; Microalbum/Creatinine Ratio Ur 20.9 ug/mg cr (<30)
[2025-04-26 13:34] LABS: Alanine Aminotransferase 49 U/L (0-31); Albumin Level 4.2 g/dL (3.5-5.0); Alkaline Phosphatase 126 U/L (39-117); Anion Gap 15 (12-20); Aspartate Amino Transferase 44 U/L (5-31); Bilirubin Direct < 0.2 mg/dL (0.0-0.5); Bilirubin Total 0.1 mg/dL (0.0-1.0); Blood Urea Nitrogen 11 mg/dL (9-16); C Reactive Protein 0.31 mg/dL (< or = 0.50); Calcium 8.8 mg/dL (8.4-10.2); Carbon Dioxide 25 mmol/L (22-29); Chloride 101 mmol/L (96-108); Cholesterol 139 mg/dL (<200); Estimated Glomerular Filt Rate 54; Glucose Random 343 mg/dL (60-115); HDL Cholesterol 43 mg/dL (>40); Iron 31 mcg/dL (30-160); LDL Cholesterol Calculated 64 mg/dL (<100); Percent Iron Saturation 11 % (15-50); Rheumatoid Factor < 13.0 IU/mL (<15.0); Sodium 137 mmol/L (135-145); Total Iron Binding Capacity 273 mcg/dL (228-428); Total Protein 7.3 g/dL (6.5-8.0); Triglycerides 161 mg/dL (<150); Unsaturated Iron Binding 242 ug/dL
[2025-04-26 13:45] LABS: Ferritin 97 ng/mL (10-250); Free T4 (Free Thyroxine) 0.88 ng/dL (0.71-1.85); Thyroid Stimulating Hormone 20.67 uIU/mL (0.32-4.0); Vitamin D 25-OH Total 49.9 ng/mL (>30)
[2025-04-26 13:46] LABS: HBS Num1 302.51 mIU/mL (0-7.99); HBc Num1 0.12 S/CO (0.00-0.79); HBsAGNum1 0.47 S/CO (0.00-0.99); HIV AB/AG Nonreactive (Nonreactive); HIV Num 1 0.09 S/CO (0.00-0.99); Hepatitis B Core Antibody Nonreactive (Nonreactive); Hepatitis B Surface Antigen Negative (Negative); ~HepC Num1 0.21 S/CO (0.00-0.79); ~Hepatitis B Surface Antibody REACTIVE (Nonreactive); ~Hepatitis C Antibody Nonreactive (Nonreactive)
[2025-04-26 13:47] LABS: Erythrocyte Sedimentation Rate 23 MM/HR (0-20)
[2025-04-26 13:56] LABS: Folate 13.1 ng/mL (> or = 4.0); Vitamin B12 441 pg/mL (200-900)
[2025-04-26 14:49] LABS: CT PCR NOT DETECTED (Not Detect.); NG PCR NOT DETECTED (Not Detect.)
[2025-04-27 07:33] LABS: Lyme Abs Screen <0.90 index
[2025-04-28 09:19] LABS: Anti Nuclear Antibody Screen NEGATIVE (NEGATIVE)
[2025-04-28 14:53] LABS: RPR Rapid Plasma Reagin NON-REACTIVE (NON-REACTIVE)
[2025-04-30 08:35] LABS: Hepatitis A Antibody IgG Nonreactive (Nonreactive); ~Hepatitis A Antibody IgG 0.62 S/CO (0.00-0.99)
== END 2025-04-26 10:36 | disposition home or self-care (01) ==
LOC: HO.HHCX 10:35
PROVIDERS: Visit Provider Family Medicine
DX: M79.651 Pain in right thigh (principal); D64.9 Anemia, unspecified; E11.9 Type 2 diabetes mellitus without complications; Z20.2 Contact with and (suspected) exposure to infections with a predominantly sexual mode of transmission; Z11.4 Encounter for screening for human immunodeficiency virus [HIV]
CPT/HCPCS: 73552; 80048; 80061; 80076; 82043; 82306; 82550; 82570; 82607; 82728; 82746; 83036; 83540; 84439; 84443; 85025; 85027; 85652; 86038; 86140; 86431; 86592; 86617; 86618; 86704; 86706; 86708; 86803; 87340; 87389; 87491; 87591

== ENCOUNTER → 2025-04-26 10:35 | Outpatient (BNV) | payer OTHER, SELFPAY | PROVIDERS: Visit Provider Radiology Diagnostic Radiology | DX: M25.761 Osteophyte, right knee (principal) | CPT/HCPCS: 73552 ==

== ENCOUNTER 2025-04-26 11:01 | Outpatient (REF) | payer OTHER, SELFPAY | END 2025-04-26 11:02 | disposition home or self-care (01) | LOC: HO.HHCL 11:01 | PROVIDERS: Visit Provider Family Medicine | DX: Z13.89 Encounter for screening for other disorder (principal) ==

== ENCOUNTER 2025-07-20 12:46 | Outpatient (REF) | payer OTHER, SELFPAY ==
--- OUTSIDE RECORDS SUMMARY | 2025-07-20 11:15 | XMS_ITS | Encounter Summary ---
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 Name Role Phone Linda Murphy DO Primary Care Provider [phone] Reason for Referral * Consultation (Routine) - Pending Review Specialty Diagnoses / Procedures Referred By Rolf pascual Referred To Contact Pulmonary Disease Diagnoses Chronic obstructive pulmonary disease, unspecified COPD type (CMS/HCC) Non-small cell cancer of left lung (CMS/HCC) Linda Murphy DO [address] [place] [address] Phone: tel: fax: Referral ID Status Reason Start Date Expiration Date Visits Requested Visits Authorized [id number] Pending Review Specialty Services Required 07/20/2025 07/20/2026 1 1 * Imaging (Routine) - Authorized Specialty Diagnoses / Procedures Referred By Rolf pascual Referred To Contact Radiology Diagnoses Encounter for screening mammogram for malignant neoplasm of breast Procedures BI Mammogram Screening Tomosynthesis Bilateral Linda Murphy DO [address] [place] [address] Phone: tel: fax: [address] Phone: tel: fax: Referral ID Status Reason Start Date Expiration Date V isits Requested Visits Authorized [id number] Authorized 07/20/2025 07/20/2026 1 1 * Imaging (Routine) - Authorized Specialty Diagnoses / Procedures Referred By Rolf pascual Referred To Contact Radiology Diagnoses Fatty liver Procedures US Abdomen Comp w elastography Linda Murphy DO [address] [place] [address] Phone: tel: fax: [address] Phone: tel: fax: Referral ID Status Reason Start Date Expiration Date V isits Requested Visits Authorized [id number] Authorized 07/20/2025 07/20/2026 1 1 Encounter Details Date Type Department Care Team (Latest Contact Info) Description 07/20/2025 11:15 AM EDT Office Visit [facility] [address] [place] [address] Linda Murphy DO [address] [place] [address] Type 2 diabetes mellitus without complication, without long-term current use of insulin (CMS/HCC) (Primary Dx); Other hyperlipidemia; Fatty liver; Chronic bipolar disorder (CMS/HCC); Chronic obstructive pulmonary disease, unspecified COPD type (CMS/HCC); Leukocytosis, unspecified type; Chronic gastroesophageal reflux disease; Chronic bilateral low back pain without sciatica; Right thigh pain; Non-small cell cancer of left lung (CMS/HCC); S/P lobectomy of lung; History of papillary thyroid carcinoma; Anemia, unspecified type; Easy bruising; Healthcare maintenance; Dietary counseling; Exercise counseling; Encounter for screening mammogram for malignant neoplasm of breast Social History Tobacco Use Types Packs/Day Years Used Date Smoking Tobacco: Former Cigarettes Passive Smoke Exposure: Current Smokeless Tobacco: Never Comments:Went from 2 packs d aily to 3 cigarettes daily Alcohol Use Standard Drinks/Week Comments Never 0 (1 standard drink = 0.6 oz pur e alcohol) Depression Answer Date Recorded Patient Health Questionnaire-9 Score 0 07/20/2025 Patient Health Questionnaire-9 Score 0 07/20/2025 Last PHQ-9: Questionnaire Data Not on file 0 07/20/2025 Housing Stability Answer Date Recorded What is [...] Date Recorded Patient Health Questionnaire-2 Score 0 07/20/2025 Internet Access Answer Date Recorded Internet Access [...] Sign Reading Time Taken Comments Blood Pressure 132/78 07/20/2025 11:14 AM EDT Pulse 88 07/20/2025 11:14 AM EDT Temperature 36.9 C (98.4 F) 07/20/2025 11:14 AM EDT Respiratory Rate 21 07/20/2025 11:14 AM EDT Oxygen Saturation 96% 07/20/2025 11:14 AM EDT Inhaled Oxygen Concentration - - Weight 97.5 kg (215 lb) 07/20/2025 11:14 AM EDT Height 170.2 cm (5' 7 ) 07/20/2025 11:14 AM EDT Body Mass Index 33.67 07/20/2025 11:14 AM EDT documented in this encounter Functional Status * Over the past 2 weeks, how often have you been bothered by any of the following problems? Question Answer Date of Assessment Author Patient Health Questionnaire -2 Score 0 07/20/2025 11:20 AM EDT Janette Ramires MA * Little interest or pleasure in doing things Answer Date of Assessment Author Not at all 07/20/2025 11:20 AM EDT Janette Ramires MA * Feeling down, depressed, or hopeless Answer Date of Assessment Author Not at all 07/20/2025 11:20 AM EDT Janette Ramires MA * Trouble falling or staying asleep, or sleeping too much Answer Date of Assessment Author Not at all 07/20/2025 11:20 AM EDT Janette Ramires MA * Feeling tired or having little energy Answer Date of Assessment Author Not at all 07/20/2025 11:20 AM EDT Janette Ramires MA * Poor appetite or overeating Answer Date of Assessment Author Not at all 07/20/2025 11:20 AM EDT Janette Ramires MA * Feeling bad about yourself - or that you are a failure or have let yourself or your family down Answer Date of Assessment Author Not at all 07/20/2025 11:20 AM ZOILAT Janette Ramires MA * Trouble concentrating on things, such as reading the newspaper or watching television Answer Date of Assessment Author Not at all 07/20/2025 11:20 AM ZOILAT Janette Ramires MA * Moving or speaking so slowly that other people could have noticed? Or the opposite - being so fidgety or restless that you have been moving around a lot more than usual. Answer Date of Assessment Author Not at all 07/20/2025 11:20 AM Janette Ortiz MA * Thoughts that you would be better off or hurting yourself in some way Answer Date of Assessment Author Not at all 07/20/2025 11:20 AM Janette Ortiz MA * Patient Health Questionnaire-9 Score Answer Date of Assessment Author 0 07/20/2025 11:20 AM EDT Janette Ramires MA * Over the last 2 weeks, how often have you been bothered by any of the following problems? Question Answer Date of Assessment Author Feeling nervous, anxious, or on edge 1 07/20/2025 11:21 AM EDT Janette Ramires MA Not being able to stop or co ntrol worrying 1 07/20/2025 11:21 AM EDT Janette Ramires MA Worrying too much about diff erent things 0 07/20/2025 11:21 AM EDT Janette Ramires MA Trouble relaxing 0 07/20/2025 11:21 AM EDT Janette Ramires MA Being so restless that it is hard to sit still 0 07/20/2025 11:21 AM EDT Janette Ramires MA Becoming easily annoyed or irritable 0 07/20/2025 11:21 AM EDT Janette Ramires MA Feeling afraid as if somethi ng awful might happen 0 07/20/2025 11:21 AM EDT Janette Ramires MA AUDREY-7 Total Score 2 07/20/2025 11:21 AM EDT Janette Ramires MA documented as of this encounter Progress Notes * Linda Murphy, - 07/20/2025 11:15 AM EDT SUBJECTIVE Tisha Ruiz is a 54 y.o. female who presents for Office Visit. She is following regularly with podiatry for nail care and debridement. She had f/u with endo in MARCH. She was continued on her levothyroxine and sent for repeat labs. She was referred for repeat US in DEC 2025 and has f/u the following mos. She had post-op f/u with her surgeon and was doing well after her lobectomy. She was referred to pulm and oncology for eval. She saw Dr Alexander in APR and advised no adjuvant therapy would be needed. She was advised surveillance with CT chest every 6 mos x 2 years, then annually x 5 years. She was advised f/u 6 mos. She says she does not have appt with the lung doctor as of yet. She says she missed her appt with hematology (Dr Schwartz) d/t conflict with her podiatry appt. She says she needs to reschedule the appt. She says she is not getting the red iron pill any longer and it worker for her, so she would likeit back. She says she is no longer having periods >12 mos. She says she is bruising and bleeding very easily x 2 mos. She says she bleeds with the simplest ofcuts or finger sticks or even when she is brushing her teeth. She feels like she is getting so manybruises all over her body too. She says she has not heard nor received anything from GI re: her colonoscopy date. She says she did not go for her nerve testing because she does not like the EMG/NCS. She says the pain in her thigh is gone. She now c/o pain in the back of her thigh which she feels comes from her buttock. She says that thepain extends down to the knee. The pain is especially after standing or walking a lot. She says sheuses lidocaine cream and gabapentin, which helps. She says she has remained smoke-free. She says she can taste food and smell things (like perfumes) in a whole new way. She says her BG runs a little higher when she eats sweets, which she has been doing as of late. Sheloves chocolate. She is not using any white sugar. She says she has gained a couple of lbs and she is happy about that. She says she has been x 30 years. She says she needs to schedule pap smear. She says she is still following with Dr Lantigua and she says she is still talking to her therapistfor now. Review of Systems Constitutional: Negative for activity change, appetite change, chills, fever and unexpected weight change. Respiratory: Negative for cough, chest tightness, shortness of breath and wheezing. Cardiovascular: Negative for chest pain, palpitations and leg swelling. Gastrointestinal: Negative for abdominal pain, diarrhea, nausea and vomiting. Musculoskeletal: Positive for arthralgias, back pain, gait problem and myalgias. Neurological: Negative for weakness and headaches. Hematological: Bruises/bleeds easily. Patient Active Problem List Diagnosis Allergic rhinitis Chronic bipolar disorder (CMS/HCC) Chronic obstructive lung disease (CMS/HCC) Obstructive sleep apnea Hyperlipidemia History of tobacco use Type 2 diabetes mellitus (CMS/HCC) Fatty liver Status post thyroidectomy History of papillary thyroid carcinoma Chronic gastroesophageal reflux disease Chronic low back pain Leukocytosis Onychomycosis Non-small cell lung cancer (CMS/HCC) Hypothyroidism Hot flashes Hypercalcemia Incomplete right bundle branch block BMI 32.0-32.9,adult Multinodular goiter Patellofemoral arthritis of right knee Postoperative hypothyroidism Uterine fibroid Varicose veins of right lower extremity with inflammation Vitamin D deficiency History of thyroid cancer DANIEL (obstructive sleep apnea) Status post lobectomy of lung Long-term current use of opiate analgesic Allergies Allergen Reactions Oxycodone Other reaction(s): Stomach Pain Other Reaction(s): stomach pain Oxycodone-Acetaminophen Pollen Extract Unknown OBJECTIVE Visit Vitals BP 132/78 (BP Location: Left arm, Patient Position: Sitting, BP Cuff Size: Adult) Pulse 88 Temp 98.4 ??F (36.9 ??C) (Oral) Resp 21 Ht 5' 7 (1.702 m) Wt 215 lb (97.5 kg) SpO2 96% BMI 33.67 kg/m?? OB Status Perimenopausal Smoking Status Former BSA 2.15 m?? Physical Exam Constitutional: General: She is not in acute distress. Appearance: Normal appearance. Cardiovascular: Rate and Rhythm: Normal rate and regular rhythm. Heart sounds: Normal heart sounds. No murmur heard. Pulmonary: Effort: Pulmonary effort is normal. Breath sounds: Normal breath sounds. No wheezing or rhonchi. Neurological: General: No focal deficit present. Mental Status: She is alert. Psychiatric: Mood and Affect: Mood normal. Hemoglobin A1c Date/Time Value Ref Range Status 04/26/2025 11:11 AM 7.7 (H) <6.0 % Final Comment: Hemoglobin A1C Reference Range Adults: 4.8 - 6.0 % Non diabetic: < 6.0 % Goal: < 7.0 %Additional Action Suggested: > 8.0 %Note: Hemoglobin A1c results are invalid for patients with abnormal amounts of HbF. Blood transfusions may impact the HbA1c concentration in the patient sample. Hemoglobin A1C Date/Time Value Ref Range Status 07/20/2025 11:19 AM 8.1 (A) 4.0 - 5.7 % Final Assessment/Plan Diagnoses and all orders for this visit: Type 2 diabetes mellitus without complication, without long-term current use of insulin (CMS/HCC) Slight bump in A1c -she agrees to start dietary changes -cont metformin and glipizide BID -cont rybelsus daily -cont regular BG monitoring -cont statin and low-dose lisinopril daily -Cr/GFR stable with nml urine microalbumin APR 2025 -s/p optho eval MARCH 2024 [facility], review next visit -s/p nml monofilament MAY 2022 Other hyperlipidemia LDL at goal APR 2025 -cont lipitor nightly Fatty liver -abd US with enlarged echogenic liver, no focal lesion JUN 2024->referred for repeat with elastography -LFTs slightly elevated APR 2025 -check AFP today Chronic bipolar disorder (CMS/HCC) -she denies any current SI/HI -she has the number for crisis -cont meds as per psychiatrist -f/u with therapist and psychiatrist as scheduled Chronic obstructive pulmonary disease, unspecified COPD type (CMS/HCC) -PFTs with mild obstructive changes APR 2012, will get copy of most recent results -cont asmanex BID -cont spiriva daily -cont singulair daily -cont albuterol/duoneb as needed -cont CPAP nightly -cont nighttime O2 supplementation Leukocytosis, unspecified type WBC nml APR 2025 -will continue to monitor -will re-refer to hematology prn Chronic gastroesophageal reflux disease Controlled -cont protonix BID Chronic bilateral low back pain without sciatica With recent radiation to R-knee -L-spine XR with mild DDD, slightly progressed JUL 2024 -cont gabapentin TID -cont tylenol and baclofen prn -encouraged diclofenac gel -cont tramadol prn severe pain -encouraged heat/ice therapy -cont home exercises/regular walking -she declines PT/PM -advised contact HHC if sx change or worsen Right thigh pain Sx resolved -advised contact HHC if sx recur Non-small cell cancer of left lung (CMS/HCC) S/P lobectomy of lung S/P LLL lobectomy FEB 2025, final pathological stage T1aN0 -no need for adjuvant therapy -cont complete tobacco cessation -CT surveillance schedule every 6 mos x 2 years, then annually -referred to pulm for eval -f/u with oncology as scheduled -f/u with CT surgery prn History of papillary thyroid carcinoma s/p total thyroidectomy APR 2021 and I131 remnant ablation OCT 2021 -cont levothyroxine daily -repeat TFTs as per endo -f/u with endo as scheduled, due JAN 2026 Anemia, unspecified type Hgb improved APR 2025 -repeat CBC with iron studies today -cont iron supplementation daily Easy bruising -provided reassurance -check CBC with coags -advised contact [facility] if sx change or worsen Healthcare maintenance -s/p flu vaccine AUG 2024 -s/p COVID vaccine SEP 2024 -s/p pneumovax OCT 2012 -s/p PCV20 AUG 2023 -s/p Tdap APR 2012 -s/p Td AUG 2022 -s/p shingrix JAN 2023 -Hep B immune -pap wnl/HPV negative May 2022->will have appt scheduled -mammo BIRADS 12 MAR 2019->referred again for repeat screening mammo -advised contact GI office to schedule colonoscopy -STI/HIV screen negative APR 2025 Dietary counseling Exercise counseling -encouraged [id number] Servings of fruit and vegetables each day 2 Hour limit of screen time 1 Hour of physical activity each day 0 Sugary drinks --Follow-up with me for Pap Smear or sooner prn-- Current Outpatient Medications: acetaminophen (Tylenol 8 Hour) 650 MG ER tablet, TAKE 1 TABLET BY MOUTH EVERY 8 HOURS NEEDED FORPAIN OR FEVER, Disp: 60 tablet, Rfl: 3 Alcohol Swabs (Alcohol Prep) 70 % pads, USE EVERY DAY UP TO TWICE DAILY, Disp: 100 each, Rfl: 11 ARIPiprazole (Abilify) 20 MG tablet, Take 1 tablet by mouth 1 (one) time each day., Disp: , Rfl: Ascorbic Acid (vitamin C) 250 MG tablet, TAKE 1 TABLET BY MOUTH TWICE DAILY AT NOON AND IN THE EVENING WITH IRON, Disp: 180 tablet, Rfl: 3 aspirin (Aspirin Low Dose) 81 MG EC tablet, Take 1 tablet (81 mg) by mouth at bedtime., Disp: 90 tablet, Rfl: 1 atorvastatin (Lipitor) 40 MG tablet, TAKE 1 TABLET BY MOUTH AT BEDTIME, Disp: 30 tablet, Rfl: 5 baclofen (Lioresal) 10 MG tablet, Take 1 tablet (10 mg) by mouth if needed in the morning, at noon,and at bedtime for muscle spasms., Disp: 60 tablet, Rfl: 3 Blood Glucose Monitoring Suppl (FreeStyle Lite) device, Inject 1 each under the skin 2 times daily.Use to test blood sugar twice daily, as directed, Disp: 1 each, Rfl: 0 buPROPion XL (Wellbutrin XL) 150 MG 24 hr tablet, Take 1 tablet by mouth in the morning., Disp: , Rfl: buPROPion XL (Wellbutrin XL) 300 MG 24 hr tablet, Take 1 tablet by mouth in the morning., Disp: , Rfl: clonazePAM (KlonoPIN) 1 MG tablet, 1 tablet twice daily as needed with an additional 1/2 tablet if needed, Disp: , Rfl: Diclofenac Sodium 1 % gel, Apply 2 g topically if needed in the morning, at noon, in the evening, and at bedtime (pain)., Disp: 150 g, Rfl: 3 ferrous sulfate 325 (65 Fe) MG EC tablet, TAKE 1 TABLET BY MOUTH EVERY DAY DO NOT BREAK, CRUSH, DISSOLVE OR CHEW, Disp: 30 tablet, Rfl: 0 gabapentin (Neurontin) 600 MG tablet, Take 1 tablet (600 mg) by mouth 3 times daily., Disp: 90 tablet, Rfl: 3 glipiZIDE (Glucotrol) 5 MG tablet, TAKE 2 TABLETS BY MOUTH TWICE DAILY IN THE MORNING AND EVENING BEFORE MEALS, Disp: 120 tablet, Rfl: 5 glucose blood (FREESTYLE LITE) test strip, Use to check blood sugar up to twice daily, Disp: 100 each, Rfl: 11 haloperidol (Haldol) 5 MG tablet, Take 0.5 tablets by mouth in the morning and at bedtime., Disp: ,Rfl: hydrOXYzine pamoate (Vistaril) 50 MG capsule, TAKE 1 CAPSULE BY MOUTH THREE TIMES DAILY NEEDED FOR ANXIETY, Disp: , Rfl: ipratropium-albuterol (Duo-Neb) 0.5-2.5 mg/3 mL nebulizer solution, INHALE 1 AMPULE USING A NEBULIZER FOUR TIMES DAILY NEEDED FOR ASTHMA OR (for COPD), Disp: 180 mL, Rfl: 2 lidocaine (Lidoderm) 5 % patch, Apply 1 patch topically if needed each day for mild pain. Remove & discard patch within 12 hours or as directed by MD., Disp: 30 patch, Rfl: 3 lisinopril 2.5 MG tablet, TAKE 1 TABLET BY MOUTH EVERYDAY AT NOON, Disp: 90 tablet, Rfl: 3 loratadine (Claritin) 10 MG tablet, TAKE 1 TABLET BY MOUTH EVERY MORNING, Disp: 30 tablet, Rfl: 11 metFORMIN XR (Glucophage-XR) 500 MG 24 hr tablet, TAKE 2 TABLETS BY MOUTH TWICE DAILY AT NOON AND IN THE EVENING, Disp: 360 tablet, Rfl: 1 methocarbamol (Robaxin) 500 MG tablet, Take 1 tablet by mouth every 6 (six) hours during the day., Disp: , Rfl: Mometasone Furoate (Asmanex HFA) 100 MCG/ACT aerosol, Inhale 2 Act (200 mcg) 2 times daily., Disp: 13 g, Rfl: 11 montelukast (Singulair) 10 MG tablet, TAKE 1 TABLET BY MOUTH EVERY EVENING, Disp: 90 tablet, Rfl: 3 naloxone (Narcan) 4 mg/0.1 mL nasal spray, Administer 1 spray (4 mg) into affected nostril(s) if needed for opioid reversal., Disp: 2 each, Rfl: 3 pantoprazole (ProtoNix) 20 MG EC tablet, TAKE 1 TABLET BY MOUTH TWICE DAILY AT NOON AND IN THE EVENING, Disp: 180 tablet, Rfl: 3 Vit-Fe Fumarate-FA ( Vitamins) 28-0.8 MG tablet, TAKE 1 TABLET BY MOUTH EVERYDAY AT NOON, Disp: 90 tablet, Rfl: 3 semaglutide (Rybelsus) 7 MG tablet, TAKE 1 TABLET BY MOUTH EVERY MORNING 30 MINUTES BEFORE A MEAL, Disp: 30 tablet, Rfl: 5 tiotropium (Spiriva HandiHaler) 18 MCG inhalation capsule, USE 1 CAPSULE FOR INHALATION ONCE A DAY DO NOT SWALLOW CAPSULE, Disp: 30 capsule, Rfl: 11 Tirosint-ROBERT 200 MCG/ML solution, TAKE 2mLs (400mcg) BY MOUTH ONCE DAILY, Disp: , Rfl: traMADol (Ultram) 50 MG tablet, Take 1 tablet (50 mg) by mouth every 8 (eight) hours if needed for severe pain., Disp: 84 tablet, Rfl: 0 TRUEplus Lancets 33G misc, Use to check blood sugar up to twice daily, Disp: 100 each, Rfl: 11 Ventolin HFA 108 (90 Base) MCG/ACT inhaler, INHALE 2 PUFFS BY MOUTH EVERY 4 HOURS NEEDED FOR WHEEZING OR SHORTNESS OF BREATH, Disp: 18 g, Rfl: 2 Scribe Attestation: Irving Hirsch, am serving as a scribe to document services personally performed by Linda Farnsworth, based on the patient's response to questions by provider and provider's statements to me. 07/20/25 1:25 PM Physicians Attestation: Linda Hirsch DO, have reviewed the information by the scribe, Irving Johnson, for accuracy and agree with its content. documented in this encounter Plan of Treatment Upcoming Encounters Date Type Department Care Team (Late st Contact Info) Description 07/26/2025 11:30 AM EDT Clinical Support [facility] [address] [place] [id number] No Lopez, KRYSTYNA Scheduled Orders Name Type Priority Associated Diagnoses Orde r Schedule Alpha-Fetoprotein, Tumor Marker Lab Routine Type 2 diabetes mellitus without complication, without long-term current use of insulin (CMS/HCC) Other hyperlipidemia Fatty liver Chronic bipolar disorder (CMS/HCC) Chronic obstructive pulmonary disease, unspecified COPD type (CMS/HCC) Leukocytosis, unspecified type Chronic gastroesophageal reflux disease Chronic bilateral low back pain without sciatica Right thigh pain Non-small cell cancer of left lung (CMS/HCC) History of papillary thyroid carcinoma Anemia, unspecified type Easy bruising Healthcare maintenance Dietary counseling Exercise counseling Encounter for screening mammogram for malignant neoplasm of breast Expected: 07/20/2025 (Approximate), Expires: 07/20/2026 US Abdomen Comp w elastography Imaging Routine Fatty liver Expected: 07/20/2025, Expires: 07/20/2026 BI Mammogram Screening Tomosynthesis Bilateral Imaging Routine Encounter for screening mammogram for malignant neoplasm of breast Expected: 07/20/2025, Expires: 09/19/2026 Scheduled Referrals Name Type Priority Associated Diagnoses Orde r Schedule Referral to Pulmonology Outpatient Referral Routine Chronic obstructive pulmonary disease, unspecified COPD type (CMS/HCC) Non-small cell cancer of left lung (CMS/HCC) Expected: 07/20/2025 (Approximate), Expires: 07/20/2026 documented as of this encounter Goals Goal Patient Goal Type Associated Problems Recent Progress Patient-Stated? Author Hemoglobin A1c < 7 Result Component 8.1(07/20/2025 11:19 AM EDT) No Neri Yang, [place] documented as of this encounter Procedures Procedure Name Priority Date/Time Associated Diagnosis Comments VITAMIN B12/FOLATE, SERUM PANEL Routine 07/20/2025 12:57 PM EDT Type 2 diabetes mellitus without complication, without long-term current use of insulin (CMS/HCC) Other hyperlipidemia Fatty liver Chronic bipolar disorder (CMS/HCC) Chronic obstructive pulmonary disease, unspecified COPD type (CMS/HCC) Leukocytosis, unspecified type Chronic gastroesophageal reflux disease Chronic bilateral low back pain without sciatica Right thigh pain Non-small cell cancer of left lung (CMS/HCC) History of papillary thyroid carcinoma Anemia, unspecified type Easy bruising Healthcare maintenance Dietary counseling Exercise counseling Encounter for screening mammogram for malignant neoplasm of breast CBC WITH AUTO DIFFERENTIAL Routine 07/20/2025 12:57 PM EDT Type 2 diabetes mellitus without complication, without long-term current use of insulin (CMS/HCC) Other hyperlipidemia Fatty liver Chronic bipolar disorder (CMS/HCC) Chronic obstructive pulmonary disease, unspecified COPD type (CMS/HCC) Leukocytosis, unspecified type Chronic gastroesophageal reflux disease Chronic bilateral low back pain without sciatica Right thigh pain Non-small cell cancer of left lung (CMS/HCC) History of papillary thyroid carcinoma Anemia, unspecified type Easy bruising Healthcare maintenance Dietary counseling Exercise counseling Encounter for screening mammogram for malignant neoplasm of breast IRON AND TOTAL IRON BINDING CAPACITY Routine 07/20/2025 12:57 PM EDT Type 2 diabetes mellitus without complication, without long-term current use of insulin (CMS/HCC) Other hyperlipidemia Fatty liver Chronic bipolar disorder (CMS/HCC) Chronic obstructive pulmonary disease, unspecified COPD type (CMS/HCC) Leukocytosis, unspecified type Chronic gastroesophageal reflux disease Chronic bilateral low back pain without sciatica Right thigh pain Non-small cell cancer of left lung (CMS/HCC) History of papillary thyroid carcinoma Anemia, unspecified type Easy bruising Healthcare maintenance Dietary counseling Exercise counseling Encounter for screening mammogram for malignant neoplasm of breast APTT Routine 07/20/2025 12:57 PM EDT Type 2 diabetes mellitus without complication, without long-term current use of insulin (CMS/HCC) Other hyperlipidemia Fatty liver Chronic bipolar disorder (CMS/HCC) Chronic obstructive pulmonary disease, unspecified COPD type (CMS/HCC) Leukocytosis, unspecified type Chronic gastroesophageal reflux disease Chronic bilateral low back pain without sciatica Right thigh pain Non-small cell cancer of left lung (CMS/HCC) History of papillary thyroid carcinoma Anemia, unspecified type Easy bruising Healthcare maintenance Dietary counseling Exercise counseling Encounter for screening mammogram for malignant neoplasm of breast PROTHROMBIN TIME-INR Routine 07/20/2025 12:57 PM EDT Type 2 diabetes mellitus without complication, without long-term current use of insulin (CMS/HCC) Other hyperlipidemia Fatty liver Chronic bipolar disorder (CMS/HCC) Chronic obstructive pulmonary disease, unspecified COPD type (CMS/HCC) Leukocytosis, unspecified type Chronic gastroesophageal reflux disease Chronic bilateral low back pain without sciatica Right thigh pain Non-small cell cancer of left lung (CMS/HCC) History of papillary thyroid carcinoma Anemia, unspecified type Easy bruising Healthcare maintenance Dietary counseling Exercise counseling Encounter for screening mammogram for malignant neoplasm of breast FERRITIN Routine 07/20/2025 12:57 PM EDT Type 2 diabetes mellitus without complication, without long-term current use of insulin (CMS/HCC) Other hyperlipidemia Fatty liver Chronic bipolar disorder (CMS/HCC) Chronic obstructive pulmonary disease, unspecified COPD type (CMS/HCC) Leukocytosis, unspecified type Chronic gastroesophageal reflux disease Chronic bilateral low back pain without sciatica Right thigh pain Non-small cell cancer of left lung (CMS/HCC) History of papillary thyroid carcinoma Anemia, unspecified type Easy bruising Healthcare maintenance Dietary counseling Exercise counseling Encounter for screening mammogram for malignant neoplasm of breast POCT GLYCATED HEMOGLOBIN, TOTAL Routine 07/20/2025 11:19 AM EDT Type 2 diabetes mellitus without complication, without long-term current use of insulin (CMS/HCC) POCT GLUCOSE Routine 07/20/2025 11:18 AM EDT Type 2 diabetes mellitus without complication, without long-term current use of insulin (CMS/HCC) documented in this encounter Results * (ABNORMAL) Partial Thromboplastin Time, Activated (APTT) (07/20/2025 12:57 PM EDT) Partial Thromboplastin Time 40.1(H) 26.7 - 34.1 SEC [facility] Blood Venous blood specimen / Unknown 07/20/2025 12:57 PM EDT 07/20/2025 12:57 PM EDT Linda Murphy LAB BLOOD ORDERABLES Final R esult Performing Organization Address [facility] Co de Phone Number [facility] [address] [place] [phone] * (ABNORMAL) Prothrombin Time-INR (07/20/2025 12:57 PM EDT) Prothrombin Time 10.6(L) 10.9 - 12.4 SEC [facility] INTERNATIONAL NORM RATIO 0.9 0.9 - 1.1 [facility] Comment:INTERNATIONAL NORMAL IZED RATIO [...] 3.5 Blood Venous blood specimen / Unknown 07/20/2025 12:57 PM EDT 07/20/2025 12:57 PM EDT Linda Murphy [employer] LAB BLOOD ORDERABLES Final R esult Performing Organization Address [facility] Co de Phone Number [facility] [address] [place] [phone] * (ABNORMAL) CBC auto differential (07/20/2025 12:57 PM EDT) White Blood Count 10.6 4.8 - 10.8 X10*3/uL [facility] Red Blood Count 4.78 4.20 - 5.50 X10*6/uL [facility] Hemoglobin 12.0 12.0 - 16.0 g/dl [facility] Hematocrit 36.4(L) 37.0 - 47.0 % [facility] Mean Corpuscular Volume 76.2(L) 80.0 - 98.0 fL [facility] Mean Corpuscular Hemoglobin 25.1(L) 27.0 - 33.0 pg [facility] Mean Corpuscular HGB Conc 33.0 31.0 - 35.0 g/dl [facility] Red Cell Distribution Width 18.7(H) 11.0 - 16.0 % [facility] Platelet Count 318 160 - 400 X10*3/uL [facility] Mean Platelet Volume 9.5 9.4 - 12.3 fL [facility] Neutrophils Percent Auto 64.1 45 - 73 % [facility] Imm Gran Pct Auto 0.5(H) 0.0 - 0.4 % [facility] Lymphocytes Percent Auto 26.5 20 - 40 % [facility] Monocytes Percent Auto 6.3 2 - 11 % [facility] Eosinophils Percent Auto 2.1 0 - 4 % [facility] Basophils Percent Auto 0.5 0 - 2 % [facility] NRBC Pct Auto 0.0 0.0 - 0.2 /100WBC [facility] Neutrophils Absolute Auto 6.8 2.0 - 8.3 x10*3/uL [facility] Imm Gran Abs Auto 0.05(H) 0.00 - 0.03 X10*3/uL [facility] Lymphocytes Absolute Auto 2.8 1.2 - 4.9 X10*3/uL [facility] Monocytes Absolute Auto 0.7 0.1 - 1.2 X10*3/uL [facility] Eosinophils Absolute Auto 0.2 0.0 - 0.4 X10*3/uL [facility] Basophils Absolute Auto 0.1 0.0 - 0.2 X10*3/uL [facility] NRBC Abs Auto 0.000 0.0 - 0.012 X10*3/uL [facility] Blood Venous blood specimen / Unknown 07/20/2025 12:57 PM EDT 07/20/2025 12:57 PM EDT Linda Murphy DO LAB BLOOD ORDERABLES Final R esult Performing Organization Address [facility] Co de Phone Number [facility] [address] [place] [phone] * Iron And Total Iron Binding Capacity (07/20/2025 12:57 PM EDT) Iron 59 30 - 160 mcg/dL [facility] Comment:Slight Hemolysis.Int erpret result with caution. Total Iron Binding Capacity 303 228 - 428 mcg/dL [facility] Percent Iron Saturation 19 15 - 50 % [facility] Unsaturated Iron Binding 244 ug/dL [facility] Blood Venous blood specimen / Unknown 07/20/2025 12:57 PM EDT 07/20/2025 12:57 PM EDT Linda Murphy DO LAB BLOOD ORDERABLES Final R esult Performing Organization Address [facility] Co de Phone Number [facility] [address] [place] [phone] * Ferritin (07/20/2025 12:57 PM EDT) Ferritin 58 10 - 250 ng/mL [facility] Blood Venous blood specimen / Unknown 07/20/2025 12:57 PM EDT 07/20/2025 12:57 PM EDT Linda Murphy DO LAB BLOOD ORDERABLES Final R esult Performing Organization Address [facility]/ZIP Co de Phone Number [facility] [address] [place] [phone] * Vitamin B12 (Cobalamin) and Folate Panel, Serum (07/20/2025 12:57 PM EDT) Vitamin B12 377 200 - 900 pg/mL [facility] Comment:NORMAL 200-900 PG/ML INDETERMINATE 160-199 PG/ML DEFICIENT < 160 PG/ML Folate 14.2 > or = 4.0 ng/mL [facility] Comment:Reference Values:> o r = 4.0 ng/mL< 4.0 ng/mL suggests folate deficiency Methotrexate, aminopterin and folinic acid(leucovorin) are chemotherapeutic agents whose molecularstructures are similar to folate; therefore, the Architectfolate assay cannot be used for patients using these drugs. Blood 07/20/2025 12:5 7 PM EDT 07/20/2025 12:57 PM EDT Linda Murphy DO LAB BLOOD ORDERABLES Final R esult [facility] [address] [place] [address] [phone] * (ABNORMAL) POCT Hgb A1c (07/20/2025 11:19 AM EDT) Pathologist [facility] Hemoglobin A1C 8.1(A) 4.0 - 5.7 % QC Media Lot # [id number] Lot# Expiration Date Blood 07/20/2025 11:1 9 AM EDT Linda Murphy DO POINT OF CARE TEST ENTER/JAME T ORDERABLES Final Result * POCT Glucose (07/20/2025 11:18 AM EDT) Pathologist [facility] Glucose Blood, POC 134 60 - 200 mg/dL QC Media Lot # [id number] Lot# Expiration Date 387,026 Blood Capillary blood specimen / Unknown 07/20/2025 11:18 AM EDT Linda Murphy DO POINT OF CARE TEST ENTER/JAME T ORDERABLES Final Result documented in this encounter Visit Diagnoses Diagnosis Type 2 diabetes mellitus without complication, without long-term current use of insulin (CMS/HCC)- Primary Other hyperlipidemia Fatty liver Other chronic nonalcoholic liver disease Chronic bipolar disorder (CMS/HCC) Chronic obstructive pulmonary disease, unspecified COPD type (CMS/HCC) Leukocytosis, unspecified type Chronic gastroesophageal reflux disease Chronic bilateral low back pain without sciatica Right thigh pain Pain in soft tissues of limb Non-small cell cancer of left lung (CMS/HCC) S/P lobectomy of lung Other postprocedural status History of papillary thyroid carcinoma Anemia, unspecified type Easy bruising Other symptoms involving skin and integumentary tissues Healthcare maintenance Dietary counseling Dietary surveillance and counseling Exercise counseling Encounter for screening mammogram for malignant neoplasm of breast documented in this encounter Additional Health Concerns Assessment Noted Time PHQ-9 Depression Total Score: 0 07/20/20 25 11:20 AM EDT documented as of this encounter Care Teams Stem Processing Machine Operator Relationship Specialty Start Date End Date Linda Murphy DO [address] [place] [phone] PCP - General Family Medicine 11/24/12 documented as of this encounter
[2025-07-20 12:59] LABS: MANUAL DIFF FLAG NO
[2025-07-20 13:01] LABS: Hematocrit 36.4 % (37.0-47.0); Hemoglobin 12.0 g/dl (12.0-16.0); Imm Gran Abs Auto 0.05 X10*3/uL (0.00-0.03); Imm Gran Pct Auto 0.5 % (0.0-0.4); Lymphocytes Absolute Auto 2.8 X10*3/uL (1.2-4.9); Mean Corpuscular HGB Conc 33.0 g/dl (31.0-35.0); Mean Corpuscular Hemoglobin 25.1 pg (27.0-33.0); Mean Corpuscular Volume 76.2 fL (80.0-98.0); NRBC Abs Auto 0.000 X10*3/uL (0.0-0.012); NRBC Pct Auto 0.0 /100WBC (0.0-0.2); Platelet Count 318 X10*3/uL (160-400); Red Blood Count 4.78 X10*6/uL (4.20-5.50); White Blood Count 10.6 X10*3/uL (4.8-10.8)
[2025-07-20 13:16] LABS: INTERNATIONAL NORM RATIO 0.9 (0.9-1.1); Prothrombin Time 10.6 SEC (10.9-12.4)
[2025-07-20 13:18] LABS: Partial Thromboplastin Time 40.1 SEC (26.7-34.1)
[2025-07-20 13:25] LABS: Iron 59 mcg/dL (30-160); Percent Iron Saturation 19 % (15-50); Total Iron Binding Capacity 303 mcg/dL (228-428); Unsaturated Iron Binding 244 ug/dL
[2025-07-20 13:45] LABS: Ferritin 58 ng/mL (10-250)
[2025-07-20 13:52] LABS: Folate 14.2 ng/mL (> or = 4.0); Vitamin B12 377 pg/mL (200-900)
--- OUTSIDE RECORDS SUMMARY | 2025-07-20 15:08 | XMS_ITS | Encounter Summary ---
Author Organization [employer] Address [address] [facility] [address] [place] [address] Care Team Providers Care Learning Technologies Specialist Name Role Phone Linda Murphy DO Primary Care Provider [phone] Dellogla Neri PharmD Unavailable Unavail able Antionette Murphy PharmD Unavailable [phone] Reason for Visit * Reason Comments Med Refill Encounter Details Date Type Department Care Team (Late Contact Info) Description 04/10/2023 Refill [facility] [address] [place] [address] Linda Murphy DO [address] [facility] [place] [address] Social History Tobacco Use Types Packs/Day Years [...] Department Care Team (Late Contact Info) Description 07/26/2025 11:30 AM EDT Clinical Support [facility] [address] [place] [address] No Lopez, KRYSTYNA documented as of this encounter Goals Goal Patient Goal Type Associated Problems Recent Progress Patient-Stated? Author Hemoglobin A1c < 7 Result Component 8.1(07/20/2025 11:19 AM EDT) No Neri Yang, PharmD documented as of this encounter Visit Diagnoses Not on filedocumented in this encounter Additional Health Concerns Assessment Noted Time PHQ-9 Depression Total Score: 0 02/27/20 11:42 AM EDT documented as of this encounter Care Teams Learning Technologies Specialist Relationship Specialty Start Date End Date Linda Murphy DO [address] [place] [phone] PCP - General Family Medicine 11/24/12 Neri Yang, PharmD [address] [place] [phone] Pharmacist Internal Medicine 11/23/22 10/17/23 Antionette Murphy PharmD [address] [place] [phone] Pharmacist Internal Medicine 07/15/24 02/25/25 documented as of this encounter
--- OUTSIDE RECORDS SUMMARY | 2025-07-20 15:08 | XMS_ITS | Clinical Summary ---
Author Organization [employer] Address [address] [place] [address] [address] [place] [address] Care Team Providers Care Public Safety Dispatcher Name Role Phone Linda Murphy DO Primary Care Provider [phone] Allergies Active Allergy Reactions Criticality Noted Date [...] reversal. 2 each 3 03/06/20 24 Active Blood Glucose Monitoring Suppl (FreeStyle Lite) deviceIndication s:Type 2 diabetes mellitus without complication, without long-term current use of insulin ([facility]) Inject 1 each under the skin 2 times daily. Use to test blood sugar twice daily, as directed 1 each 07/15/20 24 Active ipratropium-albu terol (Duo-Neb) 0.5-2.5 mg/3 mL nebulizer solutionIndicati ons:Chronic obstructive pulmonary disease, unspecified COPD type ([facility]) INHALE 1 AMPULE USING A NEBULIZER FOUR TIMES DAILY NEEDED FOR ASTHMA OR (for COPD) 180 mL 2 07/23/20 24 Active hydrOXYzine pamoate (Vistaril) 50 MG capsule TAKE 1 CAPSULE BY MOUTH THREE TIMES DAILY NEEDED FOR ANXIETY 07/15/20 24 Active Alcohol Swabs (Alcohol Prep) 70 % padsIndications: Type 2 diabetes mellitus without complication, without long-term current use of insulin ([facility]) USE EVERY DAY UP TO TWICE DAILY 100 each 08/12/20 24 Active glucose blood (FREESTYLE LITE) test stripIndications :Type 2 diabetes mellitus without complication, without long-term current use of insulin ([facility]) Use to check blood sugar up to twice daily 100 each 08/12/20 24 Active TRUEplus Lancets 33G miscIndications: Type 2 diabetes mellitus without complication, without long-term current use of insulin ([facility]) Use to check blood sugar up to twice daily 100 each 08/12/20 24 Active loratadine (Claritin) 10 MG tablet TAKE 1 TABLET BY MOUTH EVERY MORNING 30 tablet 10/27/20 24 Active tiotropium (Spiriva HandiHaler) 18 MCG inhalation capsuleIndicatio ns:Chronic obstructive pulmonary disease, unspecified COPD type ([facility]) USE 1 CAPSULE FOR INHALATION ONCE A DAY DO NOT SWALLOW CAPSULE 30 capsule 12/01/19 25 Active Mometasone Furoate (Asmanex HFA) 100 MCG/ACT aerosol Inhale 2 Act (200 mcg) 2 times daily. 13 g 12/23/19 25 Active Ascorbic Acid (vitamin C) 250 MG tablet TAKE 1 TABLET BY MOUTH TWICE DAILY AT NOON AND IN THE EVENING WITH IRON 180 tablet 12/23/19 25 Active pantoprazole (ProtoNix) 20 MG EC tabletIndication s:Chronic GERD TAKE 1 TABLET BY MOUTH TWICE [...] aspirin (Aspirin Low Dose) 81 MG EC tabletIndication s:Type 2 diabetes mellitus with other specified complication, unspecified whether nursing home insulin use (CMS/HCC) Take 1 tablet (81 mg) by mouth at bedtime. 90 tablet 1 02/23/20 25 Active metFORMIN XR (Glucophage-XR) 500 MG 24 hr tabletIndication s:Type 2 diabetes mellitus without complication, without long-term current use of insulin (CMS/HCC) TAKE 2 TABLETS BY MOUTH TWICE DAILY AT NOON AND IN THE EVENING 360 tablet 1 03/18/20 25 Active acetaminophen (Tylenol 8 Hour) 650 MG ER tabletIndication s:Acute post-traumatic headache, not intractable TAKE 1 TABLET BY MOUTH EVERY 8 HOURS NEEDED FOR PAIN OR FEVER 60 tablet 3 04/12/20 25 Active atorvastatin (Lipitor) 40 MG tablet TAKE 1 TABLET BY MOUTH AT BEDTIME 30 tablet 5 04/15/20 25 Active glipiZIDE (Glucotrol) 5 MG tablet TAKE 2 TABLETS BY MOUTH TWICE DAILY IN THE MORNING AND EVENING BEFORE MEALS 120 tablet 5 04/15/20 25 Active semaglutide (Rybelsus) 7 MG tabletIndication s:Type 2 diabetes mellitus without complications (CMS/HCC) TAKE 1 TABLET BY MOUTH EVERY MORNING 30 MINUTES BEFORE A MEAL 30 tablet 5 04/15/20 25 Active montelukast (Singulair) 10 MG tablet TAKE 1 TABLET BY MOUTH EVERY EVENING 90 tablet 04/20/20 25 Active gabapentin (Neurontin) 600 MG tablet Take 1 tablet (600 mg) by mouth 3 times daily. 90 tablet 3 04/21/20 25 2025 Active lidocaine (Lidoderm) 5 % patchIndications :Right thigh pain Apply 1 patch topically if needed each day for mild pain. Remove & discard patch within 12 hours or as directed by MD. 30 patch 3 04/21/20 25 Active traMADol (Ultram) 50 MG tabletIndication s:Chronic bilateral low back pain without sciatica Take 1 tablet (50 mg) by mouth every 8 (eight) hours if needed for severe pain. 84 tablet 06/23/20 25 Active Ventolin HFA 108 (90 Base) MCG/ACT inhalerIndicatio ns:Chronic obstructive pulmonary disease, unspecified COPD type (CMS/HCC) INHALE 2 PUFFS BY MOUTH EVERY 4 HOURS NEEDED FOR WHEEZING OR SHORTNESS OF BREATH 18 g 2 06/28/20 25 Active ferrous sulfate 325 (65 Fe) MG EC tablet TAKE 1 TABLET BY MOUTH EVERY DAY DO NOT BREAK, CRUSH, DISSOLVE OR CHEW 30 tablet 07/16/20 25 Active baclofen (Lioresal) 10 MG tablet Take 1 tablet (10 mg) by mouth if needed in the morning, at noon, and at bedtime for muscle spasms. 60 tablet 3 07/20/20 25 2025 Active Diclofenac Sodium 1 % gel Apply 2 g topically if needed in the morning, at noon, in the evening, and at bedtime (pain). 150 g 3 07/20/20 25 Active baclofen (Lioresal) 10 MG tablet Take 1 tablet (10 mg) by mouth if needed in the morning, at noon, and at bedtime for muscle spasms. 60 tablet 3 07/15/20 24 2024 Discontinued(R eorder (will not trigger notification to Pharmacy)) Ferrocite 324 MG tablet TAKE 1 TABLET BY MOUTH TWICE DAILY AT NOON AND IN THE EVENING WITH VIT C 180 tablet 3 12/23/19 25 2024 Discontinued(M ed list cleanup (will not trigger notification to Pharmacy)) ferrous sulfate 325 (65 Fe) MG EC tablet TAKE 1 TABLET BY MOUTH EVERY DAY DO NOT BREAK, CRUSH, DISSOLVE OR CHEW 30 tablet 03/29/20 25 2024 Discontinued Ventolin HFA 108 (90 Base) MCG/ACT inhalerIndicatio ns:Chronic obstructive pulmonary disease, unspecified COPD type (CMS/HCC) INHALE 2 PUFFS BY MOUTH EVERY 4 HOURS NEEDED FOR WHEEZING OR SHORTNESS OF BREATH 18 g 2 04/16/20 25 2024 Discontinued Diclofenac Sodium 1 % gel Apply 2 g topically if needed in the morning, at noon, in the evening, and at bedtime (pain). 150 g 3 04/21/20 25 2024 Discontinued(R eorder (will not trigger notification to Pharmacy)) traMADol (Ultram) 50 MG tabletIndication s:Chronic bilateral low back pain without sciatica TAKE 1 TABLET BY MOUTH EVERY 8 HOURS NEEDED FOR SEVERE PAIN 84 tablet 05/20/20 25 2024 Discontinued(R eorder (will not trigger notification to Pharmacy)) Active Problems Problem Noted Date Diagnosed Date Long-term current use of opiate analgesic 2024 Status post lobectomy of lung 04/21/2025 Hypothyroidism 02/11/2025 Hot flashes 02/11/2025 Hypercalcemia 02/11/2025 Incomplete right bundle branch block 02/11/2025 BMI 32.0-32.9,adult 02/11/2025 Multinodular goiter 02/11/2025 Patellofemoral arthritis of right knee Postoperative hypothyroidism 02/11/2025 Overview (02/11/2025): some degree of thyroid hormone malabsorption Uterine fibroid 02/11/2025 Varicose veins of right lower extremity with inf lammation 02/11/2025 Vitamin D deficiency 02/11/2025 History of thyroid cancer 02/11/2025 Overview (02/11/2025): thyroidectomy 2020 Non-small cell lung cancer 01/27/2025 DANIEL (obstructive sleep apnea) 12/22/2024 Onychomycosis 08/26/2024 Assessment & Plan (08/26/2024 [...] pain mgmt prn -advised contact [facility] if sx change or worsen Leukocytosis [...] daily -cont regular BS monitoring -re-referred to [facility] pharmacist for eval -cont statin and [...] Problem Noted Date Diagnosed Date Resolved Date Sprain and strain of ankle 02/11/2025 0 03/29/2025 Goiter 02/11/2025 04/21/2025 Headache 02/11/2025 04/21/2025 Heart palpitations 02/11/2025 Mass of lower lobe of left lung 02/11/2025 04/21/2025 Post-menopause bleeding 02/11/202504/11 Sacroiliitis 02/11/2025 03/29/2025 Vomiting 02/11/2025 03/29/2025 Weakness 02/11/2025 03/29/2025 Leucocytosis 02/11/2025 04/21/2025 GERD (gastroesophageal reflux disease) 12/22/2024 04/21/2025 Toenail avulsion 12/22/2024 04/21/2025 Toenail avulsion, initial encounter 08/26/2024 01/27/2025 Assessment & Plan (08/26/2024 11:44 AM EDT): - partial, no evidence of nail bed infection or ingrown toenail - advised to keep area clean and dry and avoid trauma/more instrumentation of the toenail - refer to malter operator - TB UTD Plantar callus 08/26/2024 01/27/2025 [...] Encounters Date Type Department Care Team Description 07/20/2025 11:15 AM EDT Office Visit [facility] [address] [place] [phone] Linda Murphy DO Type 2 diabetes mellitus without complication, without long-term current use of insulin ([facility]) (Primary Dx); Other hyperlipidemia; Fatty liver; Chronic [...] screening mammogram for malignant neoplasm of breast 07/20/2025 Travel 07/19/2025 Refill [facility] [address] [place] [address] Linda Murphy DO Chronic bilateral low back pain without sciatica 07/16/2025 Telephone [facility] [address] [place] [address] [phone] Linda Murphy DO Chart Prep 07/15/2025 Refill [facility] [address] [place] [phone] Linda Murphy DO 07/14/2025 Refill [facility] [address] [place] [address] Linda Murphy DO Chronic bilateral low back pain without sciatica 07/01/[address] [phone] Linda Murphy DO Appointment Request 07/01/2025 Travel 06/27/[address] [phone] Josseline Solis MD Chronic obstructive pulmonary disease, unspecified COPD type (CMS/HCC) 06/22/2025 Refill [facility] [address] [place] [address] Linda Murphy DO Chronic bilateral low back pain without sciatica 06/21/2025 9:30 AM EDT Clinical Support [address] [phone] No Lopez RN Long-term current use of opiate analgesic (Primary Dx) 06/21/[address] [address] No Lopez, KRYSTYNA VB DEVELOPER Agreement renewed today 06/21/2025 Travel 06/10/[address] [address] No Lopez, KRYSTYNA Error (VOID this visit) 06/10/[address] [address] No Lopez, RN Pt was NCNS for VB DEVELOPER Renewal today X4; Tramadol taper if misses 1 more VB DEVELOPER appt 06/03/[address] [address] No Lopez, RN NCNS for VB DEVELOPER Renewal today @ 11:30am; Now coming at 2pm today 05/24/[address] [phone] oN Lopez, RN Pt cancelled VB DEVELOPER Renewal appt today; Wants PCP appt 05/20/2025 Refill [facility] [address] [place] [address] Linda Murphy DO Chronic bilateral low back pain without sciatica 04/26/2025 Orders Only [facility] [address] [place] [address] Eri An, NUCLEAR PHYSICS PROFESSOR Right leg pain (Primary Dx) 04/21/2025 11:15 AM EDT Office Visit [facility] [address] [place] [address] Linda Murphy DO Right thigh pain (Primary Dx); Type 2 diabetes mellitus without complication, without long-term current use of insulin ([facility]) 04/21/2025 Travel 04/20/2025 Telephone [facility] [address] [place], [place] [phone] Linda Murphy DO Referral 04/20/2025 Telephone [facility] [address] [place] [address] [phone] Linda Murphy DO Chart Prep from Last 3 Months Immunizations Immunization Administration Dates Next Due Hep B, adult [...] Mass Index 33.67 07/20/2025 11:14 AM EDT Plan of Treatment Upcoming Encounters Date Type Department Care Team (Late st Contact Info) Description 07/26/2025 11:30 AM EDT Clinical Support [facility] [address] [place] [phone] No Lopez, RN Health Maintenance Due Date Last Done Comments CT Colonography 1972 Colonoscopy 1972 Colorectal Cancer Screening 1972 FIT DNA/Cologuard 1972 FIT 1972 FOBT 1972 Sigmoidoscopy 1972 Eye Exam 1982 Family Planning (PISQ) 1987 Hepatitis A Vaccines (1 of 2 - Risk 2-dose series) 1991 Mammogram 04/01/2021 04/01/2019, 03/12, 01/09/2018 Cervical Cancer Screening 02/15/2025 Pap Smear 02/15/2025 02/15/2022, 02/15/2022 Influenza Vaccine (#1) 2025 , 07/22/2023, 08/24/2022, Additional history exists Diabetes: Hemoglobin A1C 10/19/2025 025, 04/26/2025, 04/21/2025, Additional history exists SDOH Screening 01/19/2026 01/19/2025 Diabetes: Foot Exam 03/04/2026 03/04/2025, 09/18/2024, 08/26/2024, Additional history exists Alcohol/Substance Use Screening 04/21/2026 04/21/2025 Disability Screening 04/21/2026 04/21/2025 Diabetes: Urine Protein Screening 04/26/2026 04/26/2025, 08/13/2024, 01/14/2023, Additional history exists Lipid Panel 04/26/2026 04/26/2025, 02/10, 08/13/2024, Additional history exists Depression Screening 07/20/2026 07/20/2025, 07/20/20 Tobacco Screening 07/20/2026 07/20/2025 HPV/Cotest 05/21/2027 05/21/2022, 05/11, 02/15/2022 DTaP/Tdap/Td Vaccines (3 - Td or Tdap) 08/24/2032 08/24/2022, 04/23/2012 RSV Patients and Patients Aged 60 years or older (1 - 1-dose 75+ series) 2047 Hepatitis B Vaccines Completed 03/16/2016, 08/01/2015, 05/20/2015 Zoster Vaccines Completed 01/14/2023, 09/12/2022 Pneumococcal Vaccine: 50+ Years Completed 08/14/2023, 10/27/2012, 04/23/2012 COVID-19 Vaccine Completed 10/06/2024, 09/2023, 08/24/2022, Additional history exists HIV Screening Completed 04/26/2025, 08/11, 09/19/2022, Additional history exists Hepatitis C Screening Completed 04/26/2025 , 08/26/2023, 09/19/2022, Additional history exists HIB Vaccines Aged Out [...] Result Component 8.1(07/20/2025 11:19 AM EDT) No Dellogono, Neri, PharmD Procedures Procedure Name Priority Date/Time Associated Diagnosis Comments APTT Routine 07/20/2025 12:57 PM EDT Type [...] screening mammogram for malignant neoplasm of breast VITAMIN B12/FOLATE, SERUM PANEL Routine 07/20/2025 12:57 [...] long-term current use of insulin (CMS/HCC) POCT GAIL-14 URINE DRUG SCREEN Routine 06/21/2025 9:36 AM EDT Long-term current use of opiate analgesic CREATINE KINASE, TOTAL Routine 04/26/2025 11:11 AM EDT Type 2 diabetes mellitus without complication, without long-term current use of insulin (CMS/HCC) Right thigh pain HEPATITIS B CORE AB TOTAL Routine 04/26/2025 11:11 AM EDT Type 2 diabetes mellitus without complication, without long-term current use of insulin (CMS/HCC) Right thigh pain HEPATITIS A ANTIBODY, TOTAL Routine 04/26/2025 11:11 AM EDT Type 2 diabetes mellitus without complication, without long-term current use of insulin (CMS/HCC) Right thigh pain C-REACTIVE PROTEIN Routine 04/26/2025 11 :11 AM EDT Type 2 diabetes mellitus without complication, without long-term current use of insulin (CMS/HCC) Right thigh pain SED RATE BY MODIFIED WESTERGREN Routine 04/26/2025 11:11 AM EDT Type 2 diabetes mellitus without complication, without long-term current use of insulin (CMS/HCC) Right thigh pain RHEUMATOID FACTOR Routine 04/26/2025 11: 11 AM EDT Type 2 diabetes mellitus without complication, without long-term current use of insulin (CMS/HCC) Right thigh pain LYME DISEASE AB W/REFL TO BLOT (IGG, IGM) Routine 04/26/2025 11:11 AM EDT Type 2 diabetes mellitus without complication, without long-term current use of insulin (CMS/HCC) Right thigh pain JESICA SCREEN, IFA, W/REFL TITER AND PATTERN Routine 04/26/2025 11:11 AM EDT Type 2 diabetes mellitus without complication, without long-term current use of insulin (CMS/HCC) Right thigh pain IRON AND TOTAL IRON BINDING CAPACITY Routine 04/26/2025 11:11 AM EDT Type 2 diabetes mellitus without complication, without long-term current use of insulin (CMS/HCC) Right thigh pain FERRITIN Routine 04/26/2025 11:11 AM EDT Type 2 diabetes mellitus without complication, without long-term current use of insulin (CMS/HCC) Right thigh pain VITAMIN B12/FOLATE, SERUM PANEL Routine 04/26/2025 11:11 AM EDT Type 2 diabetes mellitus without complication, without long-term current use of insulin (CMS/HCC) Right thigh pain HEPATITIS B SURFACE ANTIBODY, QUALITATIVE Routine 04/26/2025 11:11 AM EDT Type 2 diabetes mellitus without complication, without long-term current use of insulin (CMS/HCC) Right thigh pain RPR (MONITOR) W/REFL TITER Routine 04/26/2025 11:11 AM EDT Type 2 diabetes mellitus without complication, without long-term current use of insulin (CMS/HCC) Right thigh pain HEPATITIS C AB W/REFL TO HCV RNA, QN, PCR Routine 04/26/2025 11:11 AM EDT Type 2 diabetes mellitus without complication, without long-term current use of insulin (CMS/HCC) Right thigh pain HIV 1/2 ANTIGEN/ANTIBODY, FOURTH GENERATION W/RFL Routine 04/26/2025 11:11 AM EDT Type 2 diabetes mellitus without complication, without long-term current use of insulin (CMS/HCC) Right thigh pain HEPATITIS B SURFACE ANTIGEN, EIA Routine 04/26/2025 11:11 AM EDT Type 2 diabetes mellitus without complication, without long-term current use of insulin (CMS/HCC) Right thigh pain ALBUMIN, RANDOM URINE W/CREATININE Routine 04/26/2025 11:11 AM EDT Type 2 diabetes mellitus without complication, without long-term current use of insulin (CMS/HCC) Right thigh pain BASIC METABOLIC PANEL Routine 04/26/2025 11:11 AM EDT Type 2 diabetes mellitus without complication, without long-term current use of insulin (CMS/HCC) Right thigh pain HEMOGLOBIN A1C Routine 04/26/2025 11:11 AM EDT Type 2 diabetes mellitus without complication, without long-term current use of insulin (CMS/HCC) Right thigh pain HEPATIC FUNCTION PANEL Routine 04/26/2025 11:11 AM EDT Type 2 diabetes mellitus without complication, without long-term current use of insulin ([facility]/HCC) Right thigh pain TSH Routine 04/26/2025 11:11 AM EDT Type 2 diabetes mellitus without complication, without long-term current use of insulin ([facility]/HCC) Right thigh pain LIPID PANEL, STANDARD Routine 04/26/2025 11:11 AM EDT Type 2 diabetes mellitus without complication, without long-term current use of insulin ([facility]) Right thigh pain VITAMIN D,25-OH,TOTAL,IA Routine 04/26/2025 11:11 AM EDT Type 2 diabetes mellitus without complication, without long-term current use of insulin ([facility]/HCC) Right thigh pain T4, FREE Routine 04/26/2025 11:11 AM EDT Type 2 diabetes mellitus without complication, without long-term current use of insulin ([facility]) Right thigh pain CBC WITH AUTO DIFFERENTIAL Routine 04/26/2025 11:11 AM EDT Low hemoglobin CHLAMYDIA/N. GONORRHOEAE RNA, TMA, UROGENITAL Routine 04/26/2025 11:11 AM EDT Type 2 diabetes mellitus without complication, without long-term current use of insulin ([facility]/HCC) Right thigh pain XR FEMUR 2+ VIEWS RIGHT Routine 04/26/2025 10:06 AM EDT Right thigh pain POCT GLYCATED HEMOGLOBIN, TOTAL Routine 04/21/2025 11:36 AM EDT Type 2 diabetes mellitus without complication, without long-term current use of insulin ([facility]) POCT GLUCOSE Routine 04/21/2025 11:35 AM EDT Type 2 diabetes mellitus without complication, without long-term current use of insulin ([facility]) AMB REFERRAL TO PODIATRY Routine 03/04/2025 Toenail avulsion, initial encounter Plantar callus Onychomycosis of multiple toenails with type 2 diabetes mellitus ([facility]/HCC) ([facility]) ZZZ HISTORICAL HPV E6/E7 RFLX LUIS 16 18 Routine 05/21/2022 3:45 PM EDT PAP SMEAR Routine 02/15/2022 12:00 AM EDT BI MAMMOGRAM SCREENING BILATERAL Routine 04/01/2019 2:56 PM EDT from Last 3 Months or Most Recently Relevant to Health Maintenance Results * Vitamin B12 (Cobalamin) and Folate Panel, Serum (07/20/2025 12:57 PM EDT) Only the most recent of2 resultswithin the time period is included. Vitamin B12 377 200 - 900 pg/mL [facility] Comment:NORMAL 200-900 PG/ML INDETERMINATE 160-199 PG/ML DEFICIENT < 160 PG/ML Folate 14.2 > or = 4.0 ng/mL [facility] Comment:Reference Values:> o r = 4.0 ng/mL< 4.0 ng/mL suggests folate deficiency Methotrexate, aminopterin and folinic acid(leucovorin) are chemotherapeutic agents whose molecularstructures are similar to folate; therefore, the Architectfolate assay cannot be used for patients using these drugs. Blood 07/20/2025 12:5 7 PM EDT 07/20/2025 12:57 PM EDT us Linda Murphy DO LAB BLOOD ORDERABLES Final R esult [facility] [address] [place] [phone] * (ABNORMAL) CBC auto differential (07/20/2025 12:57 PM EDT) Only the most recent of2 resultswithin the time period is included. White Blood Count 10.6 4.8 - 10.8 X10*3/uL [facility] Red Blood Count 4.78 4.20 - 5.50 X10*6/uL [facility] Hemoglobin 12.0 12.0 - 16.0 g/dl [facility] Hematocrit 36.4(L) 37.0 - 47.0 % [facility] Mean Corpuscular Volume 76.2(L) 80.0 - 98.0 fL [facility] Mean Corpuscular Hemoglobin 25.1(L) 27.0 - 33.0 pg [facility] Mean Corpuscular HGB Conc 33.0 31.0 - 35.0 g/dl [facility] Red Cell Distribution Width 18.7(H) 11.0 - 16.0 % [facility] Platelet Count 318 160 - 400 X10*3/uL [facility] Mean Platelet Volume 9.5 9.4 - 12.3 fL [facility] Neutrophils Percent Auto 64.1 45 - 73 % [facility] Imm Gran Pct Auto 0.5(H) 0.0 - 0.4 % [facility] Lymphocytes Percent Auto 26.5 20 - 40 % [facility] Monocytes Percent Auto 6.3 2 - 11 % [facility] Eosinophils Percent Auto 2.1 0 - 4 % [facility] Basophils Percent Auto 0.5 0 - 2 % [facility] NRBC Pct Auto 0.0 0.0 - 0.2 /100WBC [facility] Neutrophils Absolute Auto 6.8 2.0 - 8.3 x10*3/uL [facility] Imm Gran Abs Auto 0.05(H) 0.00 - 0.03 X10*3/uL [facility] Lymphocytes Absolute Auto 2.8 1.2 - 4.9 X10*3/uL [facility] Monocytes Absolute Auto 0.7 0.1 - 1.2 X10*3/uL [facility] Eosinophils Absolute Auto 0.2 0.0 - 0.4 X10*3/uL [facility] Basophils Absolute Auto 0.1 0.0 - 0.2 X10*3/uL [facility] NRBC Abs Auto 0.000 0.0 - 0.012 X10*3/uL [facility] Blood Venous blood specimen / Unknown 07/20/2025 12:57 PM EDT 07/20/2025 12:57 PM EDT us Linda Murphy LAB BLOOD ORDERABLES Final R esult Performing Organization Address [facility] Co de Phone Number [facility] [address] [place] [phone] * Iron And Total Iron Binding Capacity (07/20/2025 12:57 PM EDT) Only the most recent of2 resultswithin the time period is included. Iron 59 30 - 160 mcg/dL [facility] Comment:Slight Hemolysis.Int erpret result with caution. Total Iron Binding Capacity 303 228 - 428 mcg/dL [facility] Percent Iron Saturation 19 15 - 50 % [facility] Unsaturated Iron Binding 244 ug/dL [facility] Blood Venous blood specimen / Unknown 07/20/2025 12:57 PM EDT 07/20/2025 12:57 PM EDT us Linda Murphy DO LAB BLOOD ORDERABLES Final R esult Performing Organization Address [facility] Co de Phone Number [facility] [address] [place] [phone] * (ABNORMAL) Partial Thromboplastin Time, Activated (APTT) (07/20/2025 12:57 PM EDT) Partial Thromboplastin Time 40.1(H) 26.7 - 34.1 SEC [facility] Blood Venous blood specimen / Unknown 07/20/2025 12:57 PM EDT 07/20/2025 12:57 PM EDT Linda Katherine LAB BLOOD ORDERABLES Final R esult Performing Organization Address City/[facility]/ZIP Co de Phone Number [facility] [address] [place] [phone] * (ABNORMAL) Prothrombin Time-INR (07/20/2025 12:57 PM EDT) Prothrombin Time 10.6(L) 10.9 - 12.4 SEC [facility] INTERNATIONAL NORM RATIO 0.9 0.9 - 1.1 [facility] Comment:INTERNATIONAL NORMAL IZED RATIO (INR) REFERENCE [...] ORDERABLES Final R esult Performing Organization Address City/[facility]/ZIP Co de Phone Number [facility] [address] [place] [phone] * Ferritin (07/20/2025 12:57 PM EDT) Only the most recent of2 resultswithin the time period is included. Ferritin 58 10 - 250 ng/mL [facility] Blood Venous blood specimen / Unknown 07/20/2025 12:57 PM EDT 07/20/2025 12:57 PM EDT Linda Murphy DO LAB BLOOD ORDERABLES Final R esult [facility] [address] [place], [place] [phone] * (ABNORMAL) POCT Hgb A1c (07/20/2025 11:19 AM EDT) Only the most recent of2 resultswithin the time period is included. Hemoglobin A1C 8.1(A) 4.0 - 5.7 % QC Media Lot # [id number] Lot# Expiration Date Blood 07/20/2025 11:1 9 AM EDT Linda Murphy DO POINT OF CARE TEST ENTER/JAME T ORDERABLES Final Result * POCT Glucose (07/20/2025 11:18 AM EDT) Only the most recent of2 resultswithin the time period is included. Pathologist [facility] [place] Glucose Blood, POC 134 60 - 200 mg/dL QC Media Lot # [id number] Lot# Expiration Date Blood Capillary blood specimen / Unknown 07/20/2025 11:18 AM EDT Linda Murphy DO POINT OF CARE TEST ENTER/JAME T ORDERABLES Final Result * POCT GAIL-14 Urine Drug Screen (06/21/2025 9:36 AM EDT) THC Positive Negative Cocaine Screen, Urine Negative Negative Opiate Screen, Urine Negative Negative Methamphetamine Screen Urine Negative Negative Amphetamine Screen, Urine Negative Negative Benzodiazepines Screen, Urine Negative Negative Barbiturate Screen, Urine Negative Negative Methadone Screen, Urine Negative Negative Buprenophine Screen, Urine Negative Negative TCA, Urine Negative Negative MDMA Urine Negative Negative ng/mL Oxycodone Screen, Urine Negative Negative Phencyclidine (PCP), Urine Negative Negative Propoxyphene, Urine Negative Negative Fentanyl, Urine Negative Negative Urine Urine specimen obtained by clean catch procedure / Unknown 06/21/2025 9:36 AM EDT Narrative No Lopez RN - 06/21/2025 9:36 AM EDT UTOX cup Lot#[id number] Exp. 08/17/26 Internal Pass Control Linda Murphy DO POINT OF CARE TEST ENTER/JAME T ORDERABLES Final Result * Vitamin D, 25-Hydroxy, Total, Immunoassay (04/26/2025 11:11 AM EDT) Vitamin D 25-OH Total 49.9 >30 ng/mL [facility] Comment: Health Based Reference Values*< 20 ng/mL Iluahrszo18-53 ng/mL Insufficient> 30 ng/mL Sufficient*Amdao LARA. N Engl J Med. 2007;357:266-280There is [...] Vitamin D results fromdifferent laboratories and methodologies. Published datademonstrated that results from patients undergoinghemodialysis may show a negative bias when tested withvarious automated 25-OH vitamin D assays when compared toLC-MS/MS.When testing samples from patients whose predominant form ofVitamin D is Vitamin D2, such as patients receiving VitaminD2 supplementation, results that are subtherapeutic shouldbe confirmed with another method such as LC-MS/MS. Blood Venous blood specimen / Unknown 04/26/2025 11:11 AM EDT 04/26/2025 12:56 PM EDT Linda Murphy DO LAB BLOOD ORDERABLES Final R esult [facility] [address] [place] [address] [phone] * Lyme Disease Ab with Reflex to Blot (IgG, IgM) (04/26/2025 11:11 AM EDT) Lyme Antibody Screen <0.90 index [facility] Comment:Index Interpretation ----- < 0.90 Negative 0.90-1.09 Equivocal > 1.09 PositiveAs recommended by the Food and Drug Administration(FDA), all samples with positive or equivocalresults in a Borrelia burgdorferi antibody screenwill be tested using a blot method. Positive orequivocal screening test results should not beinterpreted as truly positive until verified as suchusing a supplemental assay (e.g., B. burgdorferi blot).The screening test and/or blot for B. burgdorferiantibodies may be falsely negative in early stagesof Lyme disease, including the period when erythemamigrans is apparent.THIS TEST WAS PERFORMED AT:[facility] [place] [phone] DURANT MD Lyme Blot TNP [facility] 04/26/2025 11:1 1 AM EDT 04/26/2025 12:56 PM EDT us Linda Murphy DO LAB BLOOD ORDERABLES Final R esult [facility] [address] [place] [phone] * Albumin, Random Urine W/Creatinine (04/26/2025 11:11 AM EDT) Creatinine, Urine 52.62 mg/dL [facility] Microalbumin Urine 11.0 mg/L [facility] Microalbum Creatinine Ratio Ur 20.9 <30 ug/mg cr [facility] Comment:Albumin/Creatinine R atio Reference Ranges: Normal: < 30 ug/mg creatinine Microalbuminuria: 30 - 300 ug/mg creatinineClinical Albuminuria: > 300 ug/mg creatinine Urine (Urine, Random) 04/26/2025 11:11 AM EDT 04/26/2025 12:56 PM EDT Linda Garciamario DO LAB URINE ORDERABLES Final R esult Performing Organization Address [facility] Co de Phone Number [facility] [address] [place] [phone] * Hepatitis C Antibody with Reflex to HCV, RNA, Quantitative, Real-Time PCR (04/26/2025 11:11 AM EDT) Pathologist [facility] [place] Hepatitis C Antibody Nonreactive Nonreactive [facility] Comment:Antibodies to HCV no t detected; does not exclude early acuteHCV infection. Blood Venous blood specimen / Unknown 04/26/2025 11:11 AM EDT 04/26/2025 12:56 PM EDT Linda Katherine DO LAB BLOOD ORDERABLES Final R esult Performing Organization Address [facility] Co de Phone Number [facility] [address] [place] [phone] * Hepatitis A Antibody, Total (04/26/2025 11:11 AM EDT) Pathologist [facility] [place] Hepatitis A Antibody IgG Nonreactive Nonreactive [facility] Blood Venous blood specimen / Unknown 04/26/2025 11:11 AM EDT 04/26/2025 12:56 PM EDT Linda Katherine DO LAB BLOOD ORDERABLES Final R esult Performing Organization Address [facility] Co de Phone Number [facility] [address] [place] [phone] * Chlamydia/N. Gonorrhoeae RNA, TMA, Urogenitial (04/26/2025 11:11 AM EDT) [facility] CT PCR NOT DETECTED Not Detect. [facility] Comment:A not detected test result does not exclude the possibilityof infection because test results can be affected byimproper specimen collection, concurrent antibiotic therapy,or the number of organisms in the specimen which may bebelow the sensitivity of the test. As with many diagnostictests, results from the Xpert CT/NG assay should beinterpreted in conjunction with other laboratory andclinical data available to the clinician.Xpert CT/NG performance has not been evaluated in patientsless than 14 years of age. The assay should not be used forthe evaluationof suspected sexual abuse or for other medico-legalindications. Additional testing is recommended in anycircumstance when false positive or false negative resultscould lead to adverse medical, social or psychologicalconsequences. NG PCR NOT DETECTED Not Detect. [facility] Comment:A not detected test result does not exclude the possibilityof infection because test results can be affected byimproper specimen collection, concurrent antibiotic therapy,or the number of organisms in the specimen which may bebelow the sensitivity of the test. As with many diagnostictests, results from the Xpert CT/NG assay should beinterpreted in conjunction with other laboratory andclinical data available to the clinician.Xpert CT/NG performance has not been evaluated in patientsless than 14 years of age. The assay should not be used forthe evaluationof suspected sexual abuse or for other medico-legalindications. Additional testing is recommended in anycircumstance when false positive or false negative resultscould lead to adverse medical, social or psychologicalconsequences. Urine Urethral structure / Unknown 04/26/2025 11:11 AM EDT 04/26/2025 12:56 PM EDT Narrative [facility] - 04/26/2025 2:50 PM EDT Urine us Linda Murphy DO LAB MICROBIOLOGY - GENERAL O RDERABLES Final Result [facility] [address] [place], [place] [phone] * Hepatitis B surface antigen, EIA (04/26/2025 11:11 AM EDT) Hepatitis B Surface Ag Negative Negative [facility] Blood Venous blood specimen / Unknown 04/26/2025 11:11 AM EDT 04/26/2025 12:56 PM EDT us Linda Katherine DO LAB BLOOD ORDERABLES Final R esult Performing Organization Address City/[facility]/ZIP Co de Phone Number [facility] [address] [place] [address] [phone] * Hepatitis B Core Antibody, Total (04/26/2025 11:11 AM EDT) Hepatitis B Core Antibody Nonreactive Nonreactive [facility] Blood Venous blood specimen / Unknown 04/26/2025 11:11 AM EDT 04/26/2025 12:56 PM EDT Linda Katherine DO LAB BLOOD ORDERABLES Final R esult Performing Organization Address [facility] Co de Phone Number [facility] [address] [place] [address] [phone] * RPR (Monitor) with Reflex to??Titer (04/26/2025 11:11 AM EDT) RPR (Monitor) w/Refl Titer NON-REACTI VE NON-REACT EDIN [facility] Comment:THIS TEST WAS PERFOR MED AT:[facility] [place] [phone] DURANT MD Rapid Plasma Reagin Ab Titer TNP [facility] Blood Venous blood specimen / Unknown 04/26/2025 11:11 AM EDT 04/26/2025 12:56 PM EDT us Linda Katherine DO LAB BLOOD ORDERABLES Final R esult Performing Organization Address [facility] Co de Phone Number [facility] [address] [place] [address] [phone] * HIV-1/2 Antigen and Antibodies, Fourth Generation, with Reflexes (04/26/2025 11:11 AM EDT) HIV AB/AG Nonreactive Nonreactive [facility] Comment:HIV-1 p24 Ag and/or HIV-1/HIV-2 Ab not detected.A test result that is nonreactive does not exclude thepossibility of exposure to or infection with HIV-1 and/orHIV-2. Nonreactive results in this assay for individualswith prior exposure to HIV-1 and/or HIV-2 may be due toantigen and antibody levels that are below the limit ofdetection of this assay.The [place] HIV Ag/Ab Combo assay result andsupplemental assay results should be interpreted inconjunction with the patient's clinical presentation,history and other laboratory results. If the results areinconsistent with clinical evidence, additional testing issuggested to confirm the result. Blood Venous blood specimen / Unknown 04/26/2025 11:11 AM EDT 04/26/2025 12:56 PM EDT Linda Murphy DO LAB BLOOD ORDERABLES Final R esult Performing Organization Address City/[facility]/ZIP Co de Phone Number [facility] [address] [place] [address] [phone] * Hepatitis B Surface Antibody, Qualitative (04/26/2025 11:11 AM EDT) Pathologist [facility] [place] ~Hepatitis B Surface Antibody REACTIVE Nonreactive [facility] Comment:REACTIVE: > 11.99 mI U/mL Blood Venous blood specimen / Unknown 04/26/2025 11:11 AM EDT 04/26/2025 12:56 PM EDT Linda Katherine DO LAB BLOOD ORDERABLES Final R esult Performing Organization Address [facility] Co de Phone Number [facility] [address] [place] [address] [phone] * (ABNORMAL) Sed Rate by Modified Stanleyergren (04/26/2025 11:11 AM EDT) Erythrocyte Sedimentation Rate 23(H) 0 - 20 MM/HR [facility] Comment:Patients with polycy themia and many hemoglobin abnormalitiesmay have depressed sed rates whereas patients with anemiamay have elevated sed rates. Blood Venous blood specimen / Unknown 04/26/2025 11:11 AM EDT 04/26/2025 12:56 PM EDT Linda Murphy DO LAB BLOOD ORDERABLES Final R esult Performing Organization Address [facility] Co de Phone Number [facility] [address] [place] [address] [phone] * Rheumatoid Factor (04/26/2025 11:11 AM EDT) Rheumatoid Factor <13.0 <15.0 IU/mL [facility] Blood Venous blood specimen / Unknown 04/26/2025 11:11 AM EDT 04/26/2025 12:56 PM EDT Linda Murphy DO LAB BLOOD ORDERABLES Final R esult Performing Organization Address [facility] Co de Phone Number [facility] [address] [place] [address] [phone] * C-reactive Protein (04/26/2025 11:11 AM EDT) C Reactive Protein 0.31 < or = 0.50 mg/dL [facility] Blood Venous blood specimen / Unknown 04/26/2025 11:11 AM EDT 04/26/2025 12:56 PM EDT Linda Katherine DO LAB BLOOD ORDERABLES Final R esult Performing Organization Address [facility] Co de Phone Number [facility] [address] [place] [address] [phone] * JESICA Screen,IFA, with Reflex to Titer and Pattern (04/26/2025 11:11 AM EDT) Anti Nuclear Antibody Screen NEGATIVE NEGATIVE [facility] Comment:JESICA IFA is a first l ine screen for detecting thepresence of up to approximately 150 autoantibodies invarious autoimmune diseases. A negative JESICA IFA resultsuggests an JESICA-associated autoimmune disease is notpresent at this time, but is not definitive. If thereis high clinical suspicion for Sjogren's syndrome,testing for anti-SS-A/Ro antibody should be considered.Anti-Katharine-1 antibody should be considered for clinicallysuspected inflammatory myopathies.AC-0: NegativeInternational Consensus on JESICA Patterns(https://doi.org/10.1515/qsln-6803-4455)For additional information, please refer tohttp://education.[employer]/faq/BWD506(This link is being provided for informational/educational purposes only.)THIS TEST WAS PERFORMED AT:[facility] [place] [phone] DURANT MD JESICA Titer TNP [facility] JESICA Pattern [facility] JESICA TITER 2 (REF LAB) [facility] JESICA Pattern 2 [facility] JESICA TITER 3 [facility] JESICA PATTERN 3 [facility] Blood Venous blood specimen / Unknown 04/26/2025 11:11 AM EDT 04/26/2025 12:56 PM EDT us Linda Murphy DO LAB BLOOD ORDERABLES Final R esult [facility] [address] [place] [phone] * (ABNORMAL) TSH (04/26/2025 11:11 AM EDT) Thyroid Stimulating Hormone 20.67(H) 0.32 - 4.0 uIU/mL [facility] Comment:Note: A sustained TS H level above 2.5 uIU/mL may warrant further investigation. TSH 3rd Generation ([facility]) Blood Venous blood specimen / Unknown 04/26/2025 11:11 AM EDT 04/26/2025 12:56 PM EDT Linda Katherine DO LAB BLOOD ORDERABLES Final R esult [facility] [address] [place] [address] [phone] * T4, Free (04/26/2025 11:11 AM EDT) Free T4 (Free Thyroxine) 0.88 0.71 - 1.85 ng/dL [facility] Blood Venous blood specimen / Unknown 04/26/2025 11:11 AM EDT 04/26/2025 12:56 PM EDT Linda Katherine LAB BLOOD ORDERABLES Final R esult Performing Organization Address [facility] Co de Phone Number [facility] [address] [place] [address] [phone] * (ABNORMAL) Hemoglobin A1c (04/26/2025 11:11 AM EDT) Hemoglobin A1c 7.7(H) <6.0 % [facility] Comment:Hemoglobin A1C Refer ence Range Adults: 4.8 - 6.0 % Non diabetic: < 6.0 % Goal: < 7.0 %Additional Action Suggested: > 8.0 %Note: Hemoglobin A1c results are invalid for patients with abnormal amounts of HbF. Blood transfusions may impact the HbA1c concentration in the patient sample. Estimated Average Glucose 174 mg/dL [facility] Comment:eAG = Estimated ave rage glucose which is %A1C expressed asaverage glucose, using the formula of the C0L-PxvhdmjQeafqdw Glucose study (ADAG), Diabetes Care, Vol.31,#8,2007 Blood Venous blood specimen / Unknown 04/26/2025 11:11 AM EDT 04/26/2025 12:56 PM EDT Linda Garciadillonelian DO LAB BLOOD ORDERABLES Final R esult Performing Organization Address City/[facility]/ZIP Co de Phone Number [facility] [address] [place] [phone] * (ABNORMAL) Creatine Kinase, Total (04/26/2025 11:11 AM EDT) Creatine Kinase Total 538(H) 26 - 140 U/L [facility] Blood Venous blood specimen / Unknown 04/26/2025 11:11 AM EDT 04/26/2025 12:56 PM EDT Linda Murphy DO LAB BLOOD ORDERABLES Final R esult Performing Organization Address [facility] Co de Phone Number [facility] [address] [place] [phone] * (ABNORMAL) Hepatic Function Panel (04/26/2025 11:11 AM EDT) Pathologist [facility] [place] Bilirubin, Total 0.1 0.0 - 1.0 mg/dL [facility] Bilirubin, Direct <0.2 0.0 - 0.5 mg/dL [facility] Aspartate Amino Transferase 44(H) 5 - 31 U/L [facility] Alanine Aminotransferase 49(H) 0 - 31 U/L [facility] Total Protein 7.3 6.5 - 8.0 g/dL [facility] Albumin Level 4.2 3.5 - 5.0 g/dL [facility] Alkaline Phosphatase 126(H) 39 - 117 U/L [facility] Blood Venous blood specimen / Unknown 04/26/2025 11:11 AM EDT 04/26/2025 12:56 PM EDT Linda Murphy DO LAB BLOOD ORDERABLES Final R esult Performing Organization Address [facility] Co de Phone Number [facility] [address] [place] [phone] * (ABNORMAL) Lipid Panel, Standard (04/26/2025 11:11 AM EDT) Triglycerides 161(H) <150 mg/dL [facility] Comment:Desirable Triglyceri de: less than 150 mg/dLBorderline High Triglyceride 150-199 mg/dLHigh Triglyceride: 200-499 mg/dLVery High Triglyceride: greater than or equal to 5OO mg/dL Cholesterol 139 <200 mg/dL [facility] Comment:Desirable Cholestero l: less than 200 mg/dLBorderline High Cholesterol: 200-239 mg/dLHigh Cholesterol: greater than 239 mg/dL LDL Cholesterol Calculated 64 <100 mg/dL [facility] Comment:Desirable LDL: less than 100 mg/dLNear Optimal/Above Optimal LDL: 110- 129 mg/dLBorderline High LDL: 130-159 mg/dLHigh LDL: 160-189 mg/dLVery High LDL: greater than or equal to 190 mg/dL HDL Cholesterol 43 >40 mg/dL [facility] Comment:Desirable HDL: great er than 40 mg/dL Note: This HDL assay may give artificially low results in patients with liver disease. Blood Venous blood specimen / Unknown 04/26/2025 11:11 AM EDT 04/26/2025 12:56 PM EDT us Linda Murphy DO LAB BLOOD ORDERABLES Final R esult [facility] [address] [place] [phone] * (ABNORMAL) Basic Metabolic Panel (04/26/2025 11:11 AM EDT) Sodium 137 135 - 145 mmol/L [facility] Potassium 4.0 3.3 - 5.1 mmol/L [facility] Chloride 101 96 - 108 mmol/L [facility] Carbon Dioxide 25 22 - 29 mmol/L [facility] Anion Gap 15 12 - 20 [facility] Urea Nitrogen (BUN) 11 9 - 16 mg/dL [facility] Creatinine, Serum 1.06 0.5 - 1.4 mg/dL [facility] Estimated Glomerular Filt Rate 54 [facility] Comment:Chronic Kidney Disea se: Estimated GFR < 60 mL/min/1.35l1Tchvdf Kidney Disease: Estimated GFR < 15 mL/min/1.73m2 Glucose 343(H) 60 - 115 mg/dL [facility] Calcium 8.8 8.4 - 10.2 mg/dL [facility] Blood Venous blood specimen / Unknown 04/26/2025 11:11 AM EDT 04/26/2025 12:56 PM EDT us Linda Murphy DO LAB BLOOD ORDERABLES Final R esult Performing Organization Address City/State/[facility] Co de Phone Number [facility] [address] [place] [phone] * XR Femur 2+ Views Right (04/26/2025 10:06 AM EDT) Anatomical Region Laterality Modality Lower Extremities, Femur Right Radiogr aphic Imaging 04/26/2025 10:0 6 AM EDT Narrative 04/26/2025 1:30 PM EDT [address] [address] XRay Report Signed Patient: Tisha Ruiz MR#: [id number] 61 : 1970 Acct:[id number] Age/Sex: 54 / F ADM Date: 04/26/25 Loc: .HHCX Attending Dr: Linda Murphy DO Ordering Physician: Linda Murphy DO Date of Service: 04/26/25 Procedure(s): XR femur RT 2V Accession Number(s): [id number] cc: Linda Murphy DO EXAMINATION: XR FEMUR, RIGHT CLINICAL INFORMATION: severe Rt anterior thigh pain for 2 months COMPARISON: None available. TECHNIQUE: AP and lateral views of the right femur were obtained. FINDINGS: No acute fracture is identified. Stippled somewhat linear calcific densities are visible in the medial and lateral joint line of the knee, probably meniscal and possibly also articular cartilage in nature. There are small medial joint line osteophytes of the knee. XR/XR femur RT 2V IMPRESSION: Calcium pyrophosphate deposition is present in the knee joint line and there are small medial compartmental osteophytes. Electronically signed by: Raulito Pillai MD 04/26/2025 01:27 PM EDT RP Dictated By: Raulito Pillai MD Signed By: <Electronically signed by Raulito Pillai MD in OV> 04/26/25 1327 DD/ 1006 TD/TT: 04/26/25 1253 Ultrasound Technologist: Procedure Note Donotuseinterpreter, Image - 04/26/[address] [address] XRay Report Signed Patient: Ayanna RuiznMR#: [id number] 61 : 1970Acct:[id number] Age/Sex: 54 / FADM Date: 04/26/25 Loc: HO.HHCX Attending Dr: Linda Murphy DO Ordering Physician: Linda Murphy DO Date of Service: 04/26/25 Procedure(s): XR femur RT 2V Accession Number(s): [id number] cc: Linda Murphy DO EXAMINATION: XR FEMUR, RIGHT CLINICAL INFORMATION: severe Rt anterior thigh pain for 2 months COMPARISON: None available. TECHNIQUE: AP and lateral views of the right femur were obtained. FINDINGS: No acute fracture is identified. Stippled somewhat linear calcific densities are visible in the medial and lateral joint line of the knee, probably meniscal and possibly also articular cartilage in nature. There are small medial joint line osteophytes of the knee. XR/XR femur RT 2V IMPRESSION: Calcium pyrophosphate deposition is present in the knee joint line and there are small medial compartmental osteophytes. Electronically signed by: Raulito Pillai MD 04/26/2025 01:27 PM EDT RP Dictated By: Raulito Pillai MD Signed By: <Electronically signed by Raulito Pillai MD in OV> 04/26/25 1327 DD/ 1006 TD/TT: 04/26/25 1253 Ultrasound Technologist: Linda Murphy DO IMG XR PROCEDURES Edited Res ult - Final * Referral to Podiatry (03/04/2025) Jesica Bailey MD OUTPATIENT REFERRAL [facility] Final Result * HPV E6/E7 RFLX LUIS 16 18/45 (05/21/2022 3:45 PM EDT) HPV mRNA E6/E7 rflx Not Detected Not Detected [facility] Comment: Methodology: Guide [employer]-Mediated Amplification This assay detects E6/E7 viral messenger RNA (mRNA) from 14 high-risk HPV types (16,18,31,33,35,39,45,51,52,56,58,59,66,68). Cervical sources are required for HPV testing. If a vaginal source from a patient who has had a total hysterectomy with removal of cervix was submitted, please contact the testing laboratory for alternative testing options. For additional information, please refer to http://education.[employer]/faq/BAK645e8 (This link if provided for information/ educational purposes only.) THIS TEST WAS PERFORMED AT: [facility] [address] [place] [address],[place] [address] VALERIA DURANT MD 05/21/2022 3:45 PM EDT Fercho Palmer MD HISTORICAL/NON ORDERABLE LABS Fi nal Result Performing Organization Address City/[facility]/ZIP Co de Phone Number [facility] [address] * Pap Smear (02/15/2022 12:00 AM EDT) Swab Linda Murphy DO LAB CYTOLOGY ORDERABLES Ce l Result Performing Organization Address City/[facility]/ZIP Co de Phone Number [facility] [address] [place] [address], [place] [address] * DIGITAL BILATERAL SCREEN 1 (04/01/2019 2:56 [...] Most Recently Relevant to Health Maintenance Insurance [facility] < 65 [facility] Care Teams Public Safety Dispatcher Relationship Specialty Start Date End Date Linda Murphy DO [address] [place] [address] PCP - General Family Medicine 11/24/12
--- OUTSIDE RECORDS SUMMARY | 2025-07-20 15:08 | XMS_ITS | Encounter Summary ---
Author Organization [email or web address] Address [address] 7t [place] [address] Care Team Providers Care Mine Production Engineer Name Role Phone Linda Murphy DO Primary Care Provider [phone] Antionette Murphy PharmD Unavailable [phone] Reason for Visit * Reason Comments Med Refill Encounter Details Date Type Department Care Team (Late st Contact Info) Description 02/11/2025 Refill [facility] [address] [place] [address] Linda Murphy DO [address] [place] [address] Chronic low back pain, unspecified back pain [...] Description 07/26/2025 11:30 AM EDT Clinical Support [facility]ICINE [address] [place] [address] No Lopez RN documented as of this [...] documented as of this encounter Care Teams Mine Production Engineer Relationship Specialty Start Date End Date Linda Murphy DO [address] [place] [address] PCP - General Family Medicine 11/24/12 Antionette Murphy PharmD [address] [place] [address] Pharmacist Internal Medicine 07/15/24 02/25/25 documented as of this encounter
--- OUTSIDE RECORDS SUMMARY | 2025-07-20 15:08 | XMS_ITS | Encounter Summary ---
Author Organization [employer] Address [address] [facility] 7t [place] [address] Care Team Providers Care Occasional Caregiver Name Role Phone Linda Murphy DO Primary Care Provider + [phone] Reason for Visit * Reason Comments Med Refill Encounter Details Date Type Department Care Team ([facility] st Contact Info) Description 07/15/2025 Refill [facility] [address] [place] [address] Linda Murphy DO [address] [place] [address] Social History Tobacco Use Types Packs/Day Years [...] Description 07/26/2025 11:30 AM EDT Clinical Support [facility] [address] [place] [address] No Lopez, KRYSTYNA documented as of this [...] documented as of this encounter Care Teams Occasional Caregiver Relationship Specialty Start Date End Date Linda Murphy DO [address] [place] [address] PCP - General Family Medicine 11/24/12 documented as of this encounter
--- OUTSIDE RECORDS SUMMARY | 2025-07-20 15:08 | XMS_ITS | Encounter Summary ---
Author Organization [employer] Address [address] [place] [address] 7t [place] [address] Care Team Providers Care Serology Teacher Name Role Phone Linda Murphy DO Primary Care Provider [phone] DelNeri zavala PharmD Unavailable Unavail able Antionette Murphy PharmD Unavailable Reason for Referral * Imaging (Routine) - Canceled Specialty Diagnoses / Procedures Referred By Rolf pascual Referred To Contact Radiology Diagnoses Hilar mass Procedures CT Chest w/o Contrast Nora Astudillo FNP [address] [place] [address] Phone: tel: fax: [address] Phone: tel: fax: Referral ID Status Reason Start Date Expiration Date V isits Requested Visits Authorized [id number] Canceled 10/11/2023 10/10/2024 1 1 Encounter Details Date Type Department Care Team (Late st Contact Info) Description 10/11/2023 Orders Only [facility] PEDS [address] [place] [address] Nora Astudillo FNP [address] [place] [address] Hilar mass (Primary Dx) Social History Tobacco [...] Description 07/26/2025 11:30 AM EDT Clinical Support [facility] MEDICINE [address] [place] [address] No Lopez, KRYSTYNA Scheduled Orders Name Type Priority Associated Diagnoses Orde r Schedule CT Chest w/o Contrast Imaging Routine Hilar mass Expected: 10/11/2023, Expires: 10/11/2024 documented as of this encounter Goals Goal Patient Goal Type Associated Problems Recent Progress Patient-Stated? Author Hemoglobin A1c < 7 Result Component 8.1(07/20/2025 11:19 AM EDT) No Dellogono, Neri, PharmD documented as of this encounter Visit Diagnoses Diagnosis Hilar mass- Primary documented in this encounter Additional Health Concerns Assessment Noted Time PHQ-9 Depression Total Score: 0 02/27/20 23 11:42 AM EDT documented as of this encounter Care Teams Serology Teacher Relationship Specialty Start Date End Date Linda Murphy DO [address] [place] [address] PCP - General Family Medicine 11/24/12 Neri Yang, PharmD [address] [place] [address] Pharmacist Internal Medicine 11/23/22 10/17/23 Antionette Murphy, EricD [address] [place] [address] Pharmacist Internal Medicine 07/15/24 02/25/25 documented as of this encounter
--- OUTSIDE RECORDS SUMMARY | 2025-07-20 15:08 | XMS_ITS | Encounter Summary ---
Author Organization [employer] Address 75 [facility] 7t [place] [address] Care Team Providers Care Wind Technician Name Role Phone Linda Murphy DO Primary Care Provider DellogNeri tovar PharmD Unavailable Unavail able Antionette Murphy PharmD Unavailable Reason for Visit * Reason Onset Date Comments triage 11/14/2022 Encounter Details Date Type Department Care Team (Late st Contact Info) Description 11/14/2022 Telephone [facility] MEDICINE [address] [place] [address] Linda Murphy DO 230 [place], [place] [phone] triage Social History Tobacco Use Types Packs/Day [...] EST Triage call Pt reports seen in [facility] today. Pt reports bruising [...] Description 07/26/2025 11:30 AM EDT Clinical Support [facility] [address] [place] [address] No Lopez, KRYSTYNA documented as of this encounter Visit Diagnoses Not on filedocumented in this encounter Care Teams Wind Technician Relationship Specialty Start Date End Date Linda Murphy DO [address] [place] [address] PCP - General Family Medicine 11/24/12 Neri Yang PharmD [address] [place] [address] Pharmacist Internal Medicine 11/23/22 10/17/23 Antionette Murphy PharmD [address] [place] [address] Pharmacist Internal Medicine 07/15/24 02/25/25 documented as of this encounter
--- OUTSIDE RECORDS SUMMARY | 2025-07-20 15:08 | XMS_ITS | Encounter Summary ---
Author Organization [employer] Address 75 [facility] 7t [place] [address] Care Team Providers Care Clean Up Helper Banquet Name Role Phone Linda Murphy DO Primary Care Provider [phone] Neri Yang PharmD Unavailable Unavail able Antionette Murphy PharmD Unavailable Reason for Visit * Reason Onset Date Comments Results 10/08/2023 Encounter Details Date Type Department Care Team ([facility] st Contact Info) Description 10/08/2023 Telephone [facility] MEDICINE 230 [place] [address] Linda Murphy DO 230 [place], [place] [phone] Results Social History Tobacco Use Types Packs/Day [...] Description 07/26/2025 11:30 AM EDT Clinical Support [facility] MED[facility] [address] [place] [address] No Lopez, KRYSTYNA documented as of this [...] documented as of this encounter Care Teams Clean Up Helper Banquet Relationship Specialty Start Date End Date Linda Murphy DO [address] [place] [address] PCP - General Family Medicine 11/24/12 Neri Yang, EricD [address] [place] [address] Pharmacist Internal Medicine 11/23/22 10/17/23 Antionette Murphy, EricD [address] [place] [address] Pharmacist Internal Medicine 07/15/24 02/25/25 documented as of this encounter
--- OUTSIDE RECORDS SUMMARY | 2025-07-20 15:08 | XMS_ITS | Encounter Summary ---
Author Organization [employer] Address [address] [facility] 7t [place] [address] Care Team Providers Care Appliquer Name Role Phone Linda Murphy DO Primary Care Provider [phone] Antionette Murphy PharmD Unavailable [phone] Reason for Visit * Reason Onset Date Comments Durable Medical Equipment 03/06/2024 Encounter Details Date Type Department Care Team ([facility] st Contact Info) Description 03/06/2024 Telephone [facility] MEDICINE [address] [place] [address] Linda Murphy DO [address] [place] [address] Durable Medical Equipment Social History Tobacco Use [...] Description 07/26/2025 11:30 AM EDT Clinical Support [facility] MEDICINE [address] [place] [address] No Lopez, KRYSTYNA documented as of this [...] documented as of this encounter Care Teams Appliquer Relationship Specialty Start Date End Date Linda Murphy DO [address] [place] [address] PCP - General Family Medicine 11/24/12 Antionette Murphy PharmD [address] [place] [address] Pharmacist Internal Medicine 07/15/24 02/25/25 documented as of this encounter
--- OUTSIDE RECORDS SUMMARY | 2025-07-20 15:08 | XMS_ITS | Encounter Summary ---
Author Organization [employer] Address [address] [facility] 7t [place] [address] Care Team Providers Care Creel Hand Name Role Phone Linda Murphy DO Primary Care Provider [phone] Antionette Murphy PharmD Unavailable [phone] Reason for Visit * Reason Comments Med Refill Encounter Details Date Type Department Care Team ([facility] st Contact Info) Description 02/23/2024 Refill [facility] MEDICINE 230 [place] [address] Linda Murphy DO 230 [place] [address] Chronic obstructive pulmonary disease, unspecified COPD type [...] Description 07/26/2025 11:30 AM EDT Clinical Support [facility] MEDICINE [address] [place] [address] No Lopez, KRYSTYNA documented as of this encounter Goals Goal Patient Goal Type Associated Problems Recent Progress Patient-Stated? Author Hemoglobin A1c < 7 Result Component 8.1(07/20/2025 11:19 AM EDT) No Neri Yang PharmD documented as of this encounter Visit Diagnoses Diagnosis Chronic obstructive pulmonary disease, unspecified COPD type (CMS/HCC) Pain Generalized pain documented in this encounter Additional Health Concerns Assessment Noted Time PHQ-9 Depression Total Score: 0 02/27/20 23 11:42 AM EDT documented as of this encounter Care Teams Creel Hand Relationship Specialty Start Date End Date Linda Murphy DO [address] [place] [address] PCP - General Family Medicine 11/24/12 Antionette Murphy PharmD [address] [place] [address] Pharmacist Internal Medicine 07/15/24 02/25/25 documented as of this encounter
--- OUTSIDE RECORDS SUMMARY | 2025-07-20 15:08 | XMS_ITS | Encounter Summary ---
Author Organization [employer] Address [address] [facility] 7t [place] [address] Care Team Providers Care Natural Resource Technician Name Role Phone Linda Murphy DO Primary Care Provider [phone] Reason for Visit * Reason Onset Date Comments Chart Prep 07/16/2025 Encounter Details Date Type Department Care Team ([facility] st Contact Info) Description 07/16/2025 Telephone [facility] MEDICINE 230 [place] [address] Linda Murphy DO [address] [place] [address] Chart Prep Social History Tobacco Use Types Packs/Day Years [...] Telephone Encounter - Janette Ramires [place] - 07/16/2025 11:23 AM EDT Chart Prep Labs: done Images: done Referrals: not applicable Vaccines due: Flu and Hep A Screenings: colonoscopy, mammogram, pap smear, and eye exam Overdue care gaps: A1c, Glucose, PHQ-9, AUDREY-7, and Oral health screening documented in this encounter Plan of Treatment Upcoming Encounters Date Type Department Care Team (Late st Contact Info) Description 07/26/2025 11:30 AM EDT Clinical Support [facility] MEDICINE [address] [place] [address] No Lopez, RN documented as of this [...] documented as of this encounter Care Teams Natural Resource Technician Relationship Specialty Start Date End Date Linda Murphy DO [address] [place] [address] PCP - General Family Medicine 11/24/12 documented as of this encounter
--- OUTSIDE RECORDS SUMMARY | 2025-07-20 15:08 | XMS_ITS | Encounter Summary ---
Author Organization [employer] Address [address] [facility] [address] 7t [place] [address] Care Team Providers Care Topographical Engineer Name Role Phone Linda Murphy DO Primary Care Provider [phone] Antionette Murphy PharmD Unavailable [phone] Reason for Visit * Reason Onset Date Comments Medication Question 11/13/2023 Encounter Details Date Type Department Care Team ([facility] st Contact Info) Description 11/13/2023 Telephone [facility] MEDICINE 230 [place] [address] Linda Murphy DO 230 [place] [address] Medication Question Social History Tobacco Use Types [...] 11/08 Physical appointment. Please contact pt at [phone] documented in this encounter Plan of Treatment Upcoming Encounters Date Type Department Care Team (Late st Contact Info) Description 07/26/2025 11:30 AM EDT Clinical Support [facility] MEDICINE [address] [place] [address] No Lopez, RN documented as of this [...] documented as of this encounter Care Teams Topographical Engineer Relationship Specialty Start Date End Date Linda Murphy DO [address] [place] [address] PCP - General Family Medicine 11/24/12 Antionette Murphy, EricD [address] [place] [address] Pharmacist Internal Medicine 07/15/24 02/25/25 documented as of this encounter
--- OUTSIDE RECORDS SUMMARY | 2025-07-20 15:08 | XMS_ITS | Encounter Summary ---
Author Organization [employer] Address 75 [facility] 7t [place] [address] Care Team Providers Care Supervisor Record Press Name Role Phone Linda Murphy DO Primary Care Provider [phone] Antionette Murphy PharmD Unavailable [phone] Reason for Visit * Reason Comments Med Refill Encounter Details Date Type Department Care Team ([facility] st Contact Info) Description 07/03/2024 Refill [facility] MEDICINE 230 [place] [address] Linda Murphy DO [address] [place] [address] Tobacco dependence Social History Tobacco Use Types [...] Description 07/26/2025 11:30 AM EDT Clinical Support [facility] MEDICINE [address] [place] [address] No Lopez, RN documented as of this [...] as of this encounter Care Teams Supervisor Record Press Relationship Specialty Start Date End Date Linda Murphy DO [address] [place] [address] PCP - General Family Medicine 11/24/12 Antionette Murphy PharmD [address] [place] [address] Pharmacist Internal Medicine 07/15/24 02/25/25 documented as of this encounter
--- OUTSIDE RECORDS SUMMARY | 2025-07-20 15:08 | XMS_ITS | Encounter Summary ---
Author Organization [employer] [facility] Address [address] [place] [address] 7t [place] [address] Care Team Providers Care Log Rafter Name Role Phone Linda Murphy DO Primary Care Provider [phone] DellogNeri tovar PharmD Unavailable Unavail able Antionette Murphy PharmD Unavailable Reason for Visit * Reason Comments Med Refill Encounter Details Date Type Department Care Team (Late Contact Info) Description 07/08/2023 Refill [facility] MEDICINE 230 [place] [address] Lidna Murphy DO 230 [place] [address] Pain Social History Tobacco Use Types Packs/Day [...] Description 07/26/2025 11:30 AM EDT Clinical Support [facility] MEDICINE 230 [place] [address] No Lopez RN documented as of this [...] as of this encounter Care Teams Log Rafter Relationship Specialty Start Date End Date Linda Murphy DO 230 [place] [address] PCP - General Family Medicine 11/24/12 Neri Yang, PharmD 230 [place] [address] Pharmacist Internal Medicine 11/23/22 10/17/23 Antionette Murphy PharmD 230 [place] [address] Pharmacist Internal Medicine 07/15/24 02/25/25 documented as of this encounter
--- OUTSIDE RECORDS SUMMARY | 2025-07-20 15:08 | XMS_ITS | Clinical Summary ---
Author Organization [facility] Address [address] [place] [address] Phone Care Team Providers Care Travel Clerk Name Role Phone Linda Murphy DO Primary Care Provider [phone] Allergies No known active allergies Medications acetaminophen [...] Diagnosed Date Allergic rhinitis 12/22/2024 Bipolar disorder (CMS/[facility] V24, CMS/[facility] V28) 02/1 11/2024 DANIEL (obstructive sleep apnea) 12/22/2024 Hyperlipidemia 12/22/2024 Type 2 diabetes mellitus ([facility] V24, [facility] V 28) 12/22/2024 Fatty liver 12/22/2024 Status post thyroidectomy 12/22/2024 Hx of papillary thyroid carcinoma 12/22/2024 GERD (gastroesophageal reflux disease) Chronic low back pain 12/22/2024 Leukocytosis 12/22/2024 Toenail avulsion 12/22/2024 Plantar callus 12/22/2024 Onychomycosis 12/22/2024 Encounters Date Type Department Care Team Description 06/01/2025 8:45 AM EDT Office Visit Orthopedic Surgery [facility] [address] [phone] Gutierrez Ruiz DPM Controlled type 2 diabetes with neuropathy (CMS/[facility] V24, [facility] V28) (Primary Dx); Metatarsalgia of right foot; Hammertoes of both feet; Eccrine poroma of foot, left; Dermatophytosis, nail from Last 3 Months Social [...] Care Team (Late st Contact Info) Description 08/31/2025 10:15 AM EDT Office Visit Orthopedic Surgery [facility] [address] [phone] Gutierrez Ruiz DPM [address] [address] Health Maintenance Due Date Last Done Comments Diabetes: Annual Retina Eye Exam 1982 Breast Cancer Screening 04/01/2021 04/01/2019 Colorectal Cancer Screening: Colonoscopy 09/24/2024 Medicare Annual Wellness Visit 09/24/2024 Social Influencers of Health Screening 09/24/2024 Depression Screening 11/11/2024 Diabetes: Annual Urine Albumin-Creatinine Ratio (uACR) 12/23/2024 Cervical Cancer Screening: Pap Smear 02/15/2025 02/15/2022 COVID-19 Vaccine (7 - Moderna risk season) 2025 10/06/2024, 07/22/2023, 08/24/2022, Additional history exists Influenza Vaccine (#1) 2025 , 07/22/2023, 08/24/2022, Additional history exists Diabetes: Blood Sugar Control Test (HGBA1C) 10/26/2025 04/26/2025, 04/21/2025, 03/02/2025, Additional history exists Diabetes: Annual Foot Exam 03/04/2026 03/04/2025 Diabetes: Annual GFR (Glomerular Filtration Rate) 04/26/2026 04/26/2025, 03/02/2025, 01/20/2025, Additional history exists Cholesterol Screening (Lipid Panel) 04/26/2030 04/26/2025, 03/02/2025, 08/13/2024 DTaP,Tdap,and Td Vaccines (3 - Td or Tdap) 08/24/2032 08/24/2022, 04/23/2012 Hepatitis B Vaccines Completed 03/16/2016, 08/01/2015, 05/20/2015 Zoster Vaccines Completed 01/14/2023, 09/12/2022 Pneumococcal Vaccine: 50+ Years Completed 08/14/2023, 10/27/2012, 04/23/2012 HIV Screening Completed 04/26/2025 Hepatitis C Screening Completed 04/26/2025, 023 HIB Vaccines Aged Out No longer eligi [...] patient's age to complete this topic Insurance MEDICAID - [place] [employer] MEDICARE Member Subscriber Plan / Payer (Ef fective 2013-Present) Name:SIS VALDEZ Relation to Subscriber:Self Name:Sis Valdez Payer ID:[id number] Group ID:[id number] Type:Not on file Address: [address] [place] [address] Care Teams Travel Clerk Relationship Specialty Start Date End Date Linda Murphy DO [address] [place], [place] PCP - General Internal Medicine 04/09/19
--- OUTSIDE RECORDS SUMMARY | 2025-07-20 15:08 | XMS_ITS | Encounter Summary ---
Author Organization [employer] Address 75 [facility] 7t [place] [address] Care Team Providers Care Ux Research Associate Name Role Phone Linda Murphy DO Primary Care Provider DelNeri zavala PharmD Unavailable Unavail able Antionette Murphy PharmD Unavailable [phone] Reason for Visit * Reason Onset Date Comments Letter for School/Work 03/07/2023 Encounter Details Date Type Department Care Team ([facility] st Contact Info) Description 03/07/2023 Telephone [facility] MEDICINE 230 [place] [address] Linda Murphy DO [address] [place] [address] Letter for School/Work Social History Tobacco Use [...] mailed due to COVID Please contact at [phone] documented in this encounter Plan of Treatment Upcoming Encounters Date Type Department Care Team (Late st Contact Info) Description 07/26/2025 11:30 AM EDT Clinical Support [facility] MEDICINE [address] [place] [address] No Lopez, KRYSTYNA documented as of this [...] documented as of this encounter Care Teams Ux Research Associate Relationship Specialty Start Date End Date Linda Murphy DO [address] [place] [address] PCP - General Family Medicine 11/24/12 Neri Yang, PharmD [address] [place] [address] Pharmacist Internal Medicine 11/23/22 10/17/23 Antionette Murphy PharmD [address] [place] [address] Pharmacist Internal Medicine 07/15/24 02/25/25 documented as of this encounter
--- OUTSIDE RECORDS SUMMARY | 2025-07-20 15:08 | XMS_ITS | Encounter Summary ---
Author Organization [employer] Address [address] [facility] 7t [place] [address] Care Team Providers Care Tie Cutter Name Role Phone Linda Murphy DO Primary Care Provider DelNeri zavala PharmD Unavailable Unavail able Antionette Murphy PharmD Unavailable [phone] Reason for Visit * Reason Onset Date Comments letter michael lopez 07/26/2023 Encounter Details Date Type Department Care Team (Late st Contact Info) Description 07/26/2023 Telephone [facility] MEDICINE 230 [place] [address] Linda Murphy DO 230 [place], [place] [phone] letter michael lopez Social History Tobacco Use [...] also saying sheis to be dependent so michael services would not be shut off. Pt states that that HIM transferred over to Medical side. Please contact pt at [phone] documented in this encounter Plan of Treatment Upcoming Encounters Date Type Department Care Team (Late st Contact Info) Description 07/26/2025 11:30 AM EDT Clinical Support [facility] MEDICINE [address] [place] [address] No Lopez, RN documented as of this [...] documented as of this encounter Care Teams Tie Cutter Relationship Specialty Start Date End Date Linda Murphy DO [address] [place] [address] PCP - General Family Medicine 11/24/12 Neri Yang, PharmD [address] [place] [address] Pharmacist Internal Medicine 11/23/22 10/17/23 Antionette Murphy PharmD [address] [place] [address] Pharmacist Internal Medicine 07/15/24 02/25/25 documented as of this encounter
--- OUTSIDE RECORDS SUMMARY | 2025-07-20 15:08 | XMS_ITS | Encounter Summary ---
Author Organization [employer] Address [address] 7[address] [place] [address] Care Team Providers Care Camp Tender Name Role Phone KatherineLinda Primary Care Provider [phone] Encounter Details Date Type Department Care Team (Latest Contact Info) Description 07/20/2025 Travel Social History Tobacco Use Types Packs/Day [...] AM EDT documented as of this encounter Functional Status * Over the [...] 11:20 AM EDT Janette Ramires MA * Thoughts that you would be better off or hurting yourself in some way Answer Date of Assessment Author Not at all 07/20/2025 11:20 AM ZOILAT Janette Ramires MA * Patient Health Questionnaire-9 Score Answer [...] to sit still 0 07/20/2025 11:21 AM ZOILAT Janette Ramires MA Becoming easily annoyed or irritable 0 07/20/2025 11:21 AM EDT Janette Ramires MA Feeling afraid as if somethi ng awful might happen 0 07/20/2025 11:21 AM EDT Janette Ramires MA AUDREY-7 Total Score 2 07/20/2025 11:21 AM EDT Janette Ramires MA documented as of this encounter Plan of Treatment Upcoming Encounters Date Type Department Care Team (Late st Contact Info) Description 07/26/2025 11:30 AM EDT Clinical Support [facility] MEDICINE [address] [place] [address] No Lopez, RN documented as of this encounter Goals Goal Patient Goal Type Associated Problems Recent Progress Patient-Stated? Author Hemoglobin A1c < 7 Result Component 8.1(07/20/2025 11:19 AM EDT) No Neri Yang, PharmD documented as of this encounter Visit Diagnoses Not on filedocumented in this encounter Additional Health Concerns Assessment Noted Time PHQ-9 Depression Total Score: 0 07/20/20 11:20 AM EDT documented as of this encounter Care Teams Camp Tender Relationship Specialty Start Date End Date Linda Murphy DO [address] [place] [address] PCP - General Family Medicine 11/24/12 documented as of this encounter
--- OUTSIDE RECORDS SUMMARY | 2025-07-20 15:08 | XMS_ITS | Encounter Summary ---
Author Organization [employer] Address [address] [facility] 7t [place] [address] Care Team Providers Care Pan Pusher Name Role Phone Linda Murphy DO Primary Care Provider [phone] Antionette Murphy PharmD Unavailable [phone] Reason for Visit * Reason Comments Med Refill Encounter Details Date Type Department Care Team ([facility] st Contact Info) Description 11/24/2023 Refill [facility] [address] [place] [address] Linda Murphy DO [address] [place] [address] Social History Tobacco Use Types Packs/Day Years [...] Description 07/26/2025 11:30 AM EDT Clinical Support [facility] [address] [place] [address] No Lopez, RN documented as of this [...] documented as of this encounter Care Teams Pan Pusher Relationship Specialty Start Date End Date Linda Murphy DO [address] [place] [address] PCP - General Family Medicine 11/24/12 Antionette Murphy PharmD [address] [place] [address] Pharmacist Internal Medicine 07/15/24 02/25/25 documented as of this encounter
--- OUTSIDE RECORDS SUMMARY | 2025-07-20 15:08 | XMS_ITS | Encounter Summary ---
Author Organization [employer] Address [address] [facility] 7t [place] [address] Care Team Providers Care Materials Branch Chief Name Role Phone Linda Murphy DO Primary Care Provider [phone] Dellogla Neri PharmD Unavailable Unavail able Antionette Murphy PharmD Unavailable Reason for Visit * Reason Comments Med Refill Encounter Details Date Type Department Care Team (Late st Contact Info) Description 04/05/2023 Refill [facility] [address] [place] [address] Linda Murphy DO [address] [place] [address] Social History Tobacco Use Types Packs/Day Years [...] 11:30 AM EDT Clinical Support [facility] [address] [place] [address] No Lopez, KRYSTYNA documented as of this [...] documented as of this encounter Care Teams Materials Branch Chief Relationship Specialty Start Date End Date Linda Murphy DO [address] [place] [address] PCP - General Family Medicine 11/24/12 Neri Yang, PharmD [address] [place] [phone] Pharmacist Internal Medicine 11/23/22 10/17/23 Antionette Murphy PharmD [address] [place] [address] Pharmacist Internal Medicine 07/15/24 02/25/25 documented as of this encounter
--- OUTSIDE RECORDS SUMMARY | 2025-07-20 15:08 | XMS_ITS | Encounter Summary ---
Author Organization [employer] Address [address] 7t [place] [address] Care Team Providers Care Professional Programmer Analyst Name Role Phone Linda Murphy DO Primary Care Provider [phone] Reason for Visit * Reason Comments Med Refill Encounter Details Date Type Department Care Team ([facility] st Contact Info) Description 07/14/2025 Refill [facility] MED & PEDS [address] [place] [address] Linda Murphy DO [address] [place] [address] Chronic bilateral low back pain without sciatica Social History Tobacco Use Types Packs/Day Years [...] Description 07/26/2025 11:30 AM EDT Clinical Support [facility] MEDICINE [address] [place] [address] No Lopez, KRYSTYNA documented as of this encounter Goals Goal Patient Goal Type Associated Problems Recent Progress Patient-Stated? Author Hemoglobin A1c < 7 Result Component 8.1(07/20/2025 11:19 AM EDT) No Neri Yang, PharmD documented as of this encounter Visit Diagnoses Diagnosis Chronic bilateral low back pain without sciatica documented in this encounter Additional Health Concerns Assessment Noted Time PHQ-9 Depression Total Score: 0 01/20/20 25 12:15 PM EDT documented as of this encounter Care Teams Professional Programmer Analyst Relationship Specialty Start Date End Date Linda Murphy DO [address] [place] [address] PCP - General Family Medicine 11/24/12 documented as of this encounter
--- OUTSIDE RECORDS SUMMARY | 2025-07-20 15:09 | XMS_ITS | Encounter Summary ---
Author Organization [employer] Address [address] [facility] 7t [place] [address] Care Team Providers Care Mattress Maker Name Role Phone Linda Murphy DO Primary Care Provider [phone] Antionette Murphy PharmD Unavailable [phone] Reason for Visit * Reason Onset Date Comments Med Refill 12/18/2024 Encounter Details Date Type Department Care Team (Late st Contact Info) Description 12/18/2024 Refill [facility] MED[facility] [address] [place] [address] Linda Murphy DO [address] [place] [address] Social History Tobacco Use Types Packs/Day Years [...] Description 07/26/2025 11:30 AM EDT Clinical Support [facility] MEDICINE [address] [place] [address] No Lopez RN documented as of this [...] documented as of this encounter Care Teams Mattress Maker Relationship Specialty Start Date End Date Linda Murphy DO [address] [place] [address] PCP - General Family Medicine 11/24/12 Antionetet Murphy PharmD [address] [place] [phone] Pharmacist Internal Medicine 07/15/24 02/25/25 documented as of this encounter
--- OUTSIDE RECORDS SUMMARY | 2025-07-20 15:09 | XMS_ITS | Encounter Summary ---
Author Organization [employer] Address [address] [facility] 7[address] [place] [address] Care Team Providers Care Floral Design Teacher Name Role Phone Linda Mruphy DO Primary Care Provider [phone] Reason for Visit * Reason Comments Med Refill Encounter Details Date Type Department Care Team ([facility] st Contact Info) Description 07/19/2025 Refill [facility] MED & PEDS [address] [place] [address] Linda Murphy DO [address] [place] [address] Chronic bilateral low back pain without sciatica [...] 07/20/2025 11:20 AM Janette Ortiz MA * Trouble concentrating on things, such as reading the newspaper or watching television Answer Date of Assessment Author Not at all 07/20/2025 11:20 AM Janette Ortiz MA * Moving or speaking so slowly [...] of Assessment Author 0 07/20/2025 11:20 AM Janette Ortiz MA * Over the last 2 weeks, how often have you been bothered by any of the following problems? Question Answer Date of Assessment Author Feeling nervous, anxious, or on edge 1 07/20/2025 11:21 AM Janette Ortiz MA Not being able to stop or co ntrol worrying 1 07/20/2025 11:21 AM Janette Ortiz MA Worrying too much about diff erent things 0 07/20/2025 11:21 AM Janette Ortiz MA Trouble relaxing 0 07/20/2025 11:21 AM Janette Ortiz MA Being so restless that it is hard to sit still 0 07/20/2025 11:21 AM Janette Ortiz MA Becoming easily annoyed or irritable 0 07/20/2025 11:21 AM Janette Ortiz MA Feeling afraid as if somethi ng awful might happen 0 07/20/2025 11:21 AM Janette Ortiz MA AUDREY-7 Total Score 2 07/20/2025 11:21 AM Janette Ortiz MA documented as of this encounter Miscellaneous Notes * Telephone Encounter - No Lopez RN - 07/19/2025 3:04 PM EDT Per Earl, Tramadol last picked up 06/30/25 for a 28 day supply. Refill due 07/28/25. Will forward to PCP on 07/26/25. documented in this encounter Plan of Treatment Upcoming Encounters Date Type Department Care Team (Late st Contact Info) Description 07/26/2025 11:30 AM EDT Clinical Support [facility] MEDICINE [address] [place] [address] No Lopez, KRYSTYNA documented as of this encounter Goals Goal Patient Goal Type Associated Problems Recent Progress Patient-Stated? Author Hemoglobin A1c < 7 Result Component 8.1(07/20/2025 11:19 AM EDT) No DellogNeri tovar, PharmD documented as of this encounter Visit Diagnoses Diagnosis Chronic bilateral low back pain without sciatica documented in this encounter Additional Health Concerns Assessment Noted Time PHQ-9 Depression Total Score: 0 01/20/20 12:15 PM EDT documented as of this encounter Care Teams Floral Design Teacher Relationship Specialty Start Date End Date Linda Murphy DO [address] [place] [address] PCP - General Family Medicine 11/24/12 documented as of this encounter
--- OUTSIDE RECORDS SUMMARY | 2025-07-20 15:09 | XMS_ITS | Encounter Summary ---
Author Organization [employer] Address [address] 7t [place] [address] Care Team Providers Care It Security Project Manager Name Role Phone Linda Murphy DO Primary Care Provider [phone] Antionette Murphy PharmD Unavailable [phone] Reason for Visit * Reason Onset Date Comments Med Refill 12/18/2024 Encounter Details Date Type Department Care Team (Late st Contact Info) Description 12/18/2024 Refill [facility] MED & PEDS [address] [place] [address] Linda Murphy DO [address] [facility] [place] [address] Acute post-traumatic headache, not intractable; Chronic obstructive [...] Description 07/26/2025 11:30 AM EDT Clinical Support [facility] MEDICINE [address] [place] [address] No Lopez, KRYSTYNA documented as of this [...] as of this encounter Care Teams It Security Project Manager Relationship Specialty Start Date End Date Linda Murphy DO [address] [place] [address] PCP - General Family Medicine 11/24/12 Antionette Murphy PharmD [address] [place] [phone] Pharmacist Internal Medicine 07/15/24 02/25/25 documented as of this encounter
== END 2025-07-20 12:47 | disposition home or self-care (01) ==
LOC: HO.LAB 12:46
PROVIDERS: PCP Family Medicine; Visit Provider Family Medicine
DX: Z00.00 Encounter for general adult medical examination without abnormal findings (principal); E11.9 Type 2 diabetes mellitus without complications; C34.92 Malignant neoplasm of unspecified part of left bronchus or lung; E78.49 Other hyperlipidemia; K76.0 Fatty (change of) liver, not elsewhere classified; F31.9 Bipolar disorder, unspecified; J44.9 Chronic obstructive pulmonary disease, unspecified; D72.829 Elevated white blood cell count, unspecified; K21.9 Gastro-esophageal reflux disease without esophagitis; M54.50 Low back pain, unspecified; G89.29 Other chronic pain; M79.651 Pain in right thigh; D64.9 Anemia, unspecified; R23.3 Spontaneous ecchymoses; Z85.05 Personal history of malignant neoplasm of liver; Z85.850 Personal history of malignant neoplasm of thyroid; Z71.3 Dietary counseling and surveillance; Z71.82 Exercise counseling; Z12.31 Encounter for screening mammogram for malignant neoplasm of breast
CPT/HCPCS: 36415; 82105; 82607; 82728; 82746; 83540; 85025; 85610; 85730

== ENCOUNTER 2025-09-15 10:59 | Outpatient (REF) | payer OTHER, SELFPAY ==
[2025-09-15 12:59] LABS: Free T4 (Free Thyroxine) 0.94 ng/dL (0.71-1.85); Thyroid Stimulating Hormone 8.02 uIU/mL (0.32-4.0)
--- OUTSIDE RECORDS SUMMARY | 2025-09-15 13:05 | XMS_ITS | Encounter Summary ---
Author Organization [facility] Address [address] [facility] [address] [place] [address] Phone Care Team Providers Care Computing Machine Operator Name Role Phone Linda Murphy DO Primary Care Provider [phone] Encounter Details Date Type Department Care Team (Late st Contact Info) Description 07/03/2024 Procedure Pass [facility], Ct Scan - [address] [address] Social History Tobacco Use Types Packs/Day Years Used Date Smoking Tobacco: Every Day Cigarettes Smokeless Tobacco: Never Alcohol Use Standard Drinks/Week Comments Not Currently 0 (1 standard drink = 0.6 oz pur e alcohol) Education Answer Date Recorded Are you interested in more education? Not on margy e 07/03/2024 Are you concerned about learning? Not on file 07/03/2024 No 07/03/2024 No 07/03/2024 Digital Access Answer Date Recorded No 07/03/2024 No 07/03/2024 Reliable internet access at home? Not on file 07/03/2024 Device with a working camera? Not on file Intimate Partner Violence Answer Date R ecorded Are you denied basic needs s uch as food, clothing, or medical care? No 07/03/2024 In the past 12 months have y ou been in a relationship with a person who hurts, threatens, or tries to control you? No 07/03/2024 Are you denied basic needs s uch as food, clothing, or medical care? No 07/03/2024 In the past 12 months have y ou been in a relationship with a person who hurts, threatens, or tries to control you? No 07/03/2024 Comments No Sex and Gender Information Value Date Recorded Sex Assigned at Female 07/03/2024 3:16 PM EDT Legal Sex Female 2:58 PM EDT Gender Identity Female 07/03/2024 3:16 PM EDT Sexual Orientation Not on file documented as of this encounter Functional Status * Calculated C-SSRS Risk Score (Lifetime/Recent) Answer Date of Assessment Author No Risk Indicated 07/03/2024 3:17 PM EDT Antonia Beaulieu RN * [place] Suicide Severity Rating Scale (Screener/Recent Self-Report) Question Answer Date of Assessment Author 1. Wish to be (Past 1 Month) No 07/03/2024 3:17 PM EDT Antonia Beaulieu RN 2. Non-Specific Active Suici natasha Thoughts (Past 1 Month) No 07/03/2024 3:17 PM EDT Antonia Beaulieu RN 6. Suicidal Behavior (Lifetime) No 3:17 PM EDT Antonia Beaulieu RN documented as of this encounter Plan of Treatment Not on file documented as of this encounter Visit Diagnoses Not on filedocumented in this encounter Care Teams Computing Machine Operator Relationship Specialty Start Date End Date Linda Murphy DO [address] [place] [address] PCP - General Family Medicine 07/03/24 documented as of this encounter Additional Source Comments The information contained in this document represents components of the legal health record. It is not the complete legal health record.[facility]
--- OUTSIDE RECORDS SUMMARY | 2025-09-15 13:05 | XMS_ITS | Clinical Summary ---
Author Organization [address] [facility] Address [address] [place] [address] Phone Care Team Providers Care Rotary Engraver Name Role Phone Joelle Murphyfer Juanito RAMESH Primary Care Provider [phone] Allergies No known active allergies Medications acetaminophen [...] Diagnosed Date Allergic rhinitis 12/22/2024 Bipolar disorder (CMS/[facility] V24, [facility] V28) 02/1 11/2024 DANIEL (obstructive sleep apnea) 12/22/2024 Hyperlipidemia 12/22/2024 Type 2 diabetes mellitus ([facility] V24, [facility] V 28) 12/22/2024 Fatty liver 12/22/2024 Status post thyroidectomy 12/22/2024 Hx of papillary thyroid carcinoma 12/22/2024 GERD (gastroesophageal reflux disease) Chronic low back pain 12/22/2024 Leukocytosis 12/22/2024 Toenail avulsion 12/22/2024 Plantar callus 12/22/2024 Onychomycosis 12/22/2024 Encounters Date Type Department Care Team Description 08/31/2025 10:15 AM EDT Office Visit Orthopedic Surgery [facility] [address] [phone] Gutierrez Ruiz DPM Controlled type 2 diabetes with neuropathy (CMS/[facility] V24, [facility] V28) (Primary Dx); Metatarsalgia of right [...] Care Team (Late st Contact Info) Description 11/02/2025 10:15 AM EST Office Visit Orthopedic Surgery [facility] [address] [phone] Gutierrez Ruiz DPM [address] [place] [phone] Health Maintenance Due Date Last Done Comments Colorectal Cancer Screening: Colonoscopy 1972 Diabetes: Annual Retina Eye Exam 1982 Hepatitis A Vaccines (1 of 2 - Risk 2-dose series) 1991 Breast Cancer Screening 04/01/2021 04/01/2019 RSV Immunization Adult Patients (1 - Risk 50-74 years 1-dose series) 2022 Medicare Annual Wellness Visit 09/24/2024 Social Influencers of Health Screening 09/24/2024 Depression Screening 11/11/2024 Diabetes: Annual Urine Albumin-Creatinine Ratio (uACR) 12/23/2024 Cervical Cancer Screening: Pap Smear 02/15/2025 02/15/2022 COVID-19 Vaccine (7 - Moderna risk 2023- season) 2025 10/06/2024, 07/22/2023, 08/24/2022, Additional history exists Influenza Vaccine (#1) 2025 , 07/22/2023, 08/24/2022, Additional history exists Diabetes: Blood Sugar Control Test (HGBA1C) 01/17/2026 07/20/2025, 04/26/2025, 04/21/2025, Additional history exists Diabetes: Annual Foot Exam [...] ID:ICO Type:Not on file Address: [address] [place] [address] Care Teams Rotary Engraver Relationship Specialty Start Date End Date Linda Murphy DO [address] [place], [place] PCP - General Internal Medicine 04/09/19
--- OUTSIDE RECORDS SUMMARY | 2025-09-15 13:06 | XMS_ITS | Encounter Summary ---
Author Organization [facility] Address [address] [facility] [address] [place] [address] Phone Care Team Providers Care Clinical Trials Assistant Name Role Phone Linda Murphy DO Primary Care Provider [phone] Encounter Details Date Type Department Care Team (Late st Contact Info) Description 07/03/2024 Procedure Pass [facility], Ct Scan - [address] [address] Social History Tobacco Use Types Packs/Day Years [...] 3:17 PM EDT Antonia Beaulieu RN * [place] Suicide Severity Rating Scale (Screener/Recent Self-Report) Question [...] on filedocumented in this encounter Care Teams Clinical Trials Assistant Relationship Specialty Start Date End Date Linda Murphy DO [address] [place] [address] PCP - General Family Medicine 07/03/24 documented as of this encounter Additional Source Comments The information contained in this document represents components of the legal health record. It is not the complete legal health record.[facility]
--- OUTSIDE RECORDS SUMMARY | 2025-09-15 13:06 | XMS_ITS | Clinical Summary ---
Author Organization [facility] Address [address] [address] Phone Care Team Providers Care Embedded Firmware Developer Name Role Phone Linda Murphy DO Primary Care Provider [phone] Allergies Active Allergy Reactions Criticality Noted Date Comments Oxycodone-Acetaminophen 07/03/2024 Medications No known medications Social History Tobacco Use Types Packs/Day Years Used Date Smoking Tobacco: Every Day Cigarettes Smokeless Tobacco: Never Tobacco Cessation:Ready to Q uit: Not Asked; Counseling Given: Not Answered Alcohol Use Standard Drinks/Week Comments Not Currently [...] PM EDT Sexual Orientation Not on file Last Filed Vital Signs Vital Sign Reading Time Taken Comments Blood Pressure 119/65 07/03/2024 3:15 PM EDT Pulse 86 07/03/2024 3:15 PM EDT Temperature 36.7 C (98.1 F) 07/03/2024 3:15 PM EDT Respiratory Rate 18 07/03/2024 3:15 PM EDT Oxygen Saturation 96% 07/03/2024 3:15 PM EDT Inhaled Oxygen Concentration - - Weight 93.4 kg (206 lb) 07/03/2024 3:15 PM EDT Height 171.5 cm (5' 7.5 ) 07/03/2024 3:15 PM EDT Body Mass Index 31.79 07/03/2024 3:15 PM EDT Plan of Treatment Health Maintenance Due Date Last Done Comments DEPRESSION SCREENING 1984 SMOKING Hx and SMOKELESS TOBACCO SCREENING 1985 HEPATITIS C SCREENING 1990 HIV ONE-TIME SCREENING (18-6 5 YEARS) 1990 PNEUMOCOCCAL VACCINES (50+ years) (2 of 2 - PCV) 10/27/2013 10/27/2012, 04/23/2012 COLOGUARD 2017 COLONOSCOPY 2017 COLORECTAL CANCER SCREENING 2017 FIT TEST 2017 FOBT 2017 SIGMOIDOSCOPY 2017 VIRTUAL COLONOSCOPY 2017 MAMMOGRAM 04/01/2021 04/01/2019, 04/01/2019 Adult Td,Tdap Booster 04/23/2022 04/23/2012 ZOSTER VACCINES (1 of 2) 2022 PAP SMEAR 02/15/2025 02/15/2022 INFLUENZA VACCINE (#1) 2025 COVID-19 VACCINE (1 - 2024-2 6 season) 2025 SCREENING FOR DIABETES 06/16/2027 06/16/2024 LIPID PANEL 08/26/2028 08/26/2023 RSV VACCINE (1 - 1-dose 75+ series) 2047 HEPATITIS A VACCINES Aged Out No long er eligible based on patient's age to complete this topic HIB VACCINES Aged Out No longer eligi ble based on patient's age to complete this topic MENINGOCOCCAL VACCINES (ACWY) Aged Out No longer eligible based on patient's age to complete this topic MENINGOCOCCAL VACCINES (B) Aged Out N o longer eligible based on patient's age to complete this topic Medical Devices Not on file Insurance [facility] MEDICARE PART A & B [facility] C[facility] MEDICARE REPLAC[facility] B [facility] ONE CARE MEDICARE REPLACEMENT [place] [id number] [facility] B [facility] ONE CARE MEDICARE REPLACEMENT [facility] MEDICARE PART A & B [facility] MEDIC[facility] REPLAC[place] [address] [address] MEDICARE PART A & B [facility] ONE CARE MEDICARE REPLACEMENT [facility] MEDICARE PART A & B [facility] ONE CARE MEDICARE REPLACEMENT Care Teams Embedded Firmware Developer Relationship Specialty Start Date End Date Linda Murphy DO [address] [place] [phone] PCP - General Family Medicine 07/03/24 Additional Source Comments The information contained in this document represents components of the legal health record. It is not the complete legal health record.[facility]
[2025-09-17 22:48] LABS: Thyroglobulin 0.2 ng/mL; Thyroglobulin Antibodies <1 IU/mL (< or = 1)
== END 2025-09-15 11:00 | disposition home or self-care (01) ==
LOC: HO.LAB 10:59
PROVIDERS: Student in an Organized Health Care Education/Training Program; Absent Provider Student in an Organized Health Care Education/Training Program; PCP Family Medicine; Visit Provider Family Medicine
DX: E89.0 Postprocedural hypothyroidism (principal); Z85.850 Personal history of malignant neoplasm of thyroid
CPT/HCPCS: 36415; 84432; 84439; 84443; 86800

== ENCOUNTER 2025-09-16 09:08 | Emergency (ER) | payer OTHER, SELFPAY ==
--- NOTE | ~2025-09-16 | CT_ITS ---
EXAMINATION: CT ABDOMEN AND PELVIS WITH CONTRAST CLINICAL INFORMATION: Generalized abdominal pain. COMPARISON: January 25, 2022. TECHNIQUE: Multidetector volumetric images were obtained from the superior aspect of the liver through the pubic symphysis following administration 85 mL of Omnipaque 350 intravenous contrast. Sagittal and coronal reformatted images were obtained on the technologist's workstation. Oral contrast: No This CT examination was performed using dose optimization techniques as appropriate, variously including the following: *Automated exposure control *Adjustment of mA and/or kV according to patient size (this includes techniques or standardized protocols for targeted exams where dose is matched to indication/reason for exam; i.e. extremities or head) *Use of iterative reconstruction technique. DLP: 628 mGy-cm FINDINGS: LUNG BASES: Left-sided pleural effusion, moderate volume with the heterogeneous density and lobulated margins. LIVER, GALLBLADDER, AND BILIARY TREE: Liver measures 16 cm. Heterogeneous enhancement of the parenchyma with low density nonenhancing areas near the falciform ligament and gallbladder fossa. No enhancing mass. Cholecystectomy. No intrahepatic or extrahepatic biliary ductal dilatation. PANCREAS: No focal mass. No peripancreatic fluid collection. No main pancreatic ductal dilatation. SPLEEN: 10 cm. No solid or cystic mass. ADRENAL GLANDS: No nodular lesions. KIDNEYS AND URETERS: Normal enhancement pattern of the renal cortex. No enhancing renal mass. No hydronephrosis. No gross nephrolithiasis. Subcentimeter cyst, upper pole left kidney. BLADDER: Fluid-filled. GASTROINTESTINAL TRACT: Abundant stool, large intestine. Gas and fluid-filled mildly prominent small bowel loops from the duodenum into the duodenal jejunal and collapsed appearance of the ileal loops. No gross intestinal wall thickening. No pneumatosis intestinalis. Appendix is normal. No ascites. Trace of free fluid in the cul-de-sac. No peripheral enhancing fluid collection, peritoneal cavity. No pneumoperitoneum. Swirling of the mesentery on at the infraumbilical region. ABDOMINAL WALL: No gross umbilical hernia. LYMPH NODES: Prominent, inguinal, periodontal iliac, retroperitoneum and to a lesser extent mesenteric and. VASCULAR: No aneurysm or dissection, abdominal aorta. Small trace pericardial effusion. Main portal veins, hepatic veins and intrahepatic portion of the IVC as well as the IVC are patent. PELVIC VISCERA: Heterogeneous enhancement of the ureters. Focal calcifications in the adnexa. OSSEOUS STRUCTURES: Multilevel thoracolumbar spondylosis pronounced at L3-4 resulting in central spinal canal and bilateral neuroforamina stenosis. 12 mm blastic lesion, posterior left iliac bone. Unchanged since prior exam. CT/CT abdomen pelvis w IV con IMPRESSION: Left-sided without pleural effusion, moderate volume with questionable loculation and small volume pericardial effusion. Consider inflammatory versus infectious process, malignancy cannot be excluded. Hepatomegaly and prominent lymphadenopathy. Lymphoproliferative disorder cannot be excluded. Probable focal fatty infiltration, hepatic. 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 Fleischner guidelines were followed. Electronically signed by: Franki Fulton MD 09/16/2025 11:57 AM EST
--- NOTE | ~2025-09-16 | XR_ITS ---
EXAMINATION: XR CHEST CLINICAL INFORMATION: weakness COMPARISON: February 17, 2025 TECHNIQUE: PA and lateral views. FINDINGS: There is a horizontally oriented opacity in the left lower hemithorax with blunting of the costophrenic angle. Pulmonary reticular pattern. No pneumothorax. Cardiomediastinal silhouette size is normal. Multilevel spondylosis, thoracolumbar spine. Degenerative changes in the acromioclavicular joints. Patient's large body habitus. XR/XR chest 2V IMPRESSION: Left-sided pleural effusion, moderate volume. Underlying airspace disease versus malignancy cannot be excluded. Electronically signed by: Franki Fulton MD 09/16/2025 01:16 PM EST
[2025-09-16 09:10] VITALS: BP 117/59; PULSE 101; RESP 18; TEMP 36.2; O2SAT 97; BMI 32.7
[2025-09-16 09:19] LABS: Glucose, Whole Blood 333 mg/dL (60-115)
[2025-09-16 09:40] LABS: MANUAL DIFF FLAG NO
[2025-09-16 09:42] LABS: Hematocrit 39.9 % (37.0-47.0); Hemoglobin 13.0 g/dl (12.0-16.0); Imm Gran Abs Auto 0.07 X10*3/uL (0.00-0.03); Imm Gran Pct Auto 0.4 % (0.0-0.4); Lymphocytes Absolute Auto 2.8 X10*3/uL (1.2-4.9); Mean Corpuscular HGB Conc 32.6 g/dl (31.0-35.0); Mean Corpuscular Hemoglobin 26.5 pg (27.0-33.0); Mean Corpuscular Volume 81.4 fL (80.0-98.0); NRBC Abs Auto 0.020 X10*3/uL (0.0-0.012); NRBC Pct Auto 0.1 /100WBC (0.0-0.2); Platelet Count 353 X10*3/uL (160-400); Red Blood Count 4.90 X10*6/uL (4.20-5.50); White Blood Count 17.1 X10*3/uL (4.8-10.8)
[2025-09-16 09:48] LABS: Appearance Urine Cloudy; Glucose Urine UA Negative (Negative); PH 7.0 (5.0-9.0); Specific Gravity - Urine <= 1.005 (1.005-1.025); UMIC TRIGGER UACC YES
[2025-09-16 09:53] LABS: UACC Culture Trigger YES
[2025-09-16 09:57] LABS: Alanine Aminotransferase 28 U/L (0-31); Albumin Level 4.4 g/dL (3.5-5.0); Alkaline Phosphatase 124 U/L (39-117); Anion Gap 12 (12-20); Aspartate Amino Transferase 23 U/L (5-31); Blood Urea Nitrogen 9 mg/dL (9-16); Calcium 9.1 mg/dL (8.4-10.2); Carbon Dioxide 31 mmol/L (22-29); Chloride 97 mmol/L (96-108); Creatinine Clr Calc Pharmacy 67.4; Estimated Glomerular Filt Rate 50; Magnesium 1.7 mg/dL (1.6-2.6); Potassium 4.2 mmol/L (3.3-5.1); Sodium 136 mmol/L (135-145); Total Protein 8.0 g/dL (6.5-8.0)
--- NOTE | 2025-09-16 10:11 | ED.ABDPAIN ---
HPI - Abdominal Pain General Chief Complaint: Abdominal Pain Stated Complaint: vomiting 2 days Time Seen by Provider: 09/16/25 10:11 Source: patient Mode of arrival: ambulatory Limitations: no limitations History of Present Illness ED Provider: HPI narrative: 55 year old female with PMH significant for [id number] type 2 diabetes, HTN, HLD, thyroid cancer s/p thyroidectomy, COPD, GERD, DANIEL on 2L NC at night, presenting with nausea, vomiting epigastric abdominal pain for the past 2 days, no fevers or chills no chest pain no dyspnea reported. No hematuria or dysuria, no hematemesis or hematochezia. Related Data Home Medications ?Medication ?Instructions ?Recorded ?Confirmed lisinopril 2.5 mg tablet 2.5 mg PO DAILY@1200 09/05/20 04/15/25 metformin 500 mg tablet,extended 1,000 mg PO BID 09/05/20 04/15/25 release 24 hr acetaminophen 650 mg 650 mg PO Q8H PRN Pain 04/24/21 04/15/25 tablet,extended release albuterol sulfate 90 mcg/actuation 2 puff inhalation QID PRN Wheezing 04/24/21 04/15/25 aerosol inhaler atorvastatin 40 mg tablet 40 mg PO BEDTIME 04/24/21 04/15/25 glipizide 5 mg tablet 10 mg PO BID 04/24/21 04/15/25 haloperidol 5 mg tablet 2.5 mg PO BEDTIME 04/24/21 04/15/25 bupropion HCl 300 mg 24 hr tablet, 300 mg PO DAILY 06/07/22 04/15/25 extended release aripiprazole 20 mg tablet 20 mg PO BEDTIME 09/24/22 04/15/25 aspirin 81 mg tablet,delayed 81 mg PO DAILY 09/24/22 04/15/25 release bupropion HCl 150 mg 24 hr tablet, 150 mg PO DAILY 09/24/22 04/15/25 extended release clonazepam 1 mg tablet (Klonopin) 1 mg PO BID PRN Anxiety 04/04/23 04/15/25 semaglutide 7 mg tablet (Rybelsus) 7 mg PO DAILY 12/15/24 04/15/25 loratadine 10 mg tablet 10 mg PO DAILY 02/01/25 04/15/25 montelukast 10 mg tablet 10 mg PO BEDTIME 02/01/25 04/15/25 pantoprazole 20 mg tablet,delayed 20 mg PO DAILY@1700 02/01/25 04/15/25 release ascorbic acid (vitamin C) 250 mg 250 mg PO BID@1200,2100 02/11/25 04/15/25 tablet ferrous fumarate 324 mg (106 mg 324 mg PO BID@1200,2100 02/11/25 04/15/25 iron) tablet (Ferrocite) hydroxyzine pamoate 50 mg capsule 50 mg PO TID PRN anxiety 02/11/25 04/15/25 ipratropium 0.5 mg-albuterol 3 mg 3 ml inhalation QID PRN asthma 02/11/25 04/15/25 (2.5 mg base)/3 mL nebulization soln mometasone 100 mcg/actuation HFA 2 puff inhalation BID 02/11/25 04/15/25 aerosol inhaler (Asmanex HFA) omega-3 fatty acids 1,000 mg 1,000 mg PO DAILY 02/11/25 04/15/25 capsule vit no.95-ferrous 1 tab PO DAILY 02/11/25 04/15/25 fumarate 28 mg-folic acid 800 mcg tablet () tramadol 50 mg tablet 50 mg PO Q8H PRN severe pain 02/11/25 04/15/25 gabapentin 100 mg tablet 100 mg PO TID 04/15/25 04/15/25 Previous Rx's ?Medication ?Instructions ?Recorded docusate sodium 100 mg capsule 100 mg PO BID #30 caps 02/15/25 (Colace) tramadol 50 mg tablet 50 mg PO Q4H PRN pain #20 tabs 02/15/25 Tirosint-Michelle 200 mcg/mL oral 400 mcg (2 mL) PO DAILY #60 mL 09/01/25 solution (levothyroxine) ondansetron 4 mg disintegrating 4 mg PO Q8H PRN nausea and 09/16/25 tablet vomiting #4 tabs sucralfate 1 gram tablet (Carafate) 1 g PO Q6H 7 days #28 tabs 09/16/25 Allergies Allergy/AdvReac Type Severity Reaction Status Date / Time oxycodone (Percocet) Allergy Intermediate stomach Verified 09/16/25 09:13 pain SEASONAL ALLERGIES Allergy Unknown UNKNOWN Uncoded 09/16/25 09:13 Review of Systems Constitutional: Reports as per HPI [facility] Past Medical History Medical History (Updated 09/16/25 @ 13:26 by Teo Mazariegos DO) Primary malignant neoplasm of left lower lobe of lung History of thyroid cancer Hx of radiation therapy Postoperative hypothyroidism Sciatica of right side Back pain Arthritis Anemia Anxiety On home oxygen therapy Incomplete right bundle branch block (RBBB) Uterine fibroid DANIEL (obstructive sleep apnea) Cervical cancer Schizoaffective disorder Pancreatitis Type 2 diabetes mellitus JESICA positive Vitamin D deficiency Morbid obesity Sacroiliitis Multinodular goiter HLD (hyperlipidemia) COPD (chronic obstructive pulmonary disease) GERD (gastroesophageal reflux disease) Bipolar 1 disorder Hypercalcemia Goiter Surgical History History of lobectomy of lung History of tubal ligation History of cholecystectomy History of total thyroidectomy Family History Family History Father Bipolar 1 disorder Mother Diabetes mellitus Hypertension Hyperlipidemia COPD (chronic obstructive pulmonary disease) Paternal Aunt Breast cancer Sister Cervical cancer Social History Social History Household Members: Family Household Members Other:: duplex Housing: House Are you a primary health care sanitary technician to a significant other at home: No Do you presently have visiting nurse or other home services: No Alcohol intake: never Comment: Pt refusing bed alarm, agrees to ring call raza for assist. 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 ?CV: RRR, no obvious murmurs appreciated ? ?Resp: ?No wheezing rales rhonchi no stridor moving air well ? Abd: ?Bowel sounds are present, epigastric tenderness no rebound no rigidity ? ?MSK: FROM, strength 5/5 all extremities ? Skin: Warm, dry, intact, ? ?Neuro: ?Alert and oriented x3, moving upper and lower extremities symmetrically, no obvious facial asymmetry noted, cranial nerves 2-12 intact Vital Signs: Vital Signs - 24 hr 09/16/25 09:10 Temperature 97.1 F Pulse Rate 101 H Respiratory Rate 18 Blood Pressure 117/59 L Pulse Oximetry 97 Oxygen Delivery Method Room Air BMI result Body Mass Index 32.7 Medical Decision Making Medical Decision Making [facility] Narrative: 10:29 AM 09/16/2025 (Dr. Teo Mazariegos): We will obtain imaging giving her prior history of cancer, has a history of cholecystectomy, no urinary symptoms, her urine always appears somewhat with white cells and occasionally has bacteria present, 1 time she had positive E coli otherwise unremarkable culture and so unless she has any other symptoms I will hold off on treating her, she has chronically elevated leukocytosis, along this can be due to nausea, we will obtain imaging however to evaluate for any SBO, any intra-abdominal masses we will treat symptomatically 12:59 PM 09/16/2025 (Dr. Teo Mazariegos): Based on CT findings will obtain chest x-ray, discussed with the patient, she is re-evaluated she is actually better with the medications for GI provider for her 1:22 PM 09/16/2025 (Dr. Teo Mazariegos): Patient does have PCP involved in her care, she is doing much better with medications I provided for her stomach upset, and as I reviewed her prior x-rays which from the reading understand the radiologist's did not perform patient has had left-sided pleural effusion in the past, without symptoms of cough fevers presenting with GI symptoms I am reassured and we will discuss follow up with the patient's see my discharge instructions Differential Diagnosis Differential Diagnoses: The differential diagnosis associated with the presentation includes ( pancreatitis, hepatitis, gastritis, cholangitis, choledocholithiasis, SBO, ACS) Admission/Observation Consideration of admission/observation: Escalation of care including admission/observation considered Lab Data [facility] Lab Attestation statement: I reviewed the patient's lab results. 09/16/25 09:34 09/16/25 09:34 Labs: Lab Results 09/16/25 09/16/25 Range/Units 09:15 09:34 WBC 17.1 H (4.8-10.8) X10*3/uL RBC 4.90 (4.20-5.50) X10*6/uL Hgb 13.0 (12.0-16.0) g/dl Hct 39.9 (37.0-47.0) % MCV 81.4 (80.0-98.0) fL MCH 26.5 L (27.0-33.0) pg MCHC 32.6 (31.0-35.0) g/dl RDW 14.5 (11.0-16.0) % Plt Count 353 (160-400) X10*3/uL MPV 9.6 (9.4-12.3) fL Immature Gran % (Auto) 0.4 (0.0-0.4) % Neut % (Auto) 76.2 H (45-73) % Lymph % (Auto) 16.2 L (20-40) % [place] % (Auto) 6.0 (2-11) % Eos % (Auto) 0.7 (0-4) % Baso % (Auto) 0.5 (0-2) % Lymph # (Auto) 2.8 (1.2-4.9) X10*3/uL [place] # (Auto) 1.0 (0.1-1.2) X10*3/uL Eos # (Auto) 0.1 (0.0-0.4) X10*3/uL Baso # (Auto) 0.1 (0.0-0.2) X10*3/uL Abs Immat Gran (auto) 0.07 H (0.00-0.03) X10*3/uL Absolute Neuts (auto) 13.1 H (2.0-8.3) x10*3/uL Absolute Nucleated RBC 0.020 H (0.0-0.012) X10*3/uL Nucleated RBC % (auto) 0.1 (0.0-0.2) /100WBC Sodium 136 (135-145) mmol/L Potassium 4.2 (3.3-5.1) mmol/L Chloride 97 (96-108) mmol/L Carbon Dioxide 31 H (22-29) mmol/L Anion Gap 12 (12-20) BUN 9 (9-16) mg/dL Creatinine 1.14 (0.5-1.4) mg/dL Estim Creat Clear Calc 67.4 Estimated GFR 50 POC Glucose 333 H (60-115) mg/dL Random Glucose 293 H (60-115) mg/dL Calcium 9.1 (8.4-10.2) mg/dL Magnesium 1.7 (1.6-2.6) mg/dL Total Bilirubin 0.3 (0.0-1.0) mg/dL Direct Bilirubin 0.1 (0.0-0.5) mg/dL AST 23 (5-31) U/L ALT 28 (0-31) U/L Alkaline Phosphatase 124 H (39-117) U/L Total Protein 8.0 (6.5-8.0) g/dL Albumin 4.4 (3.5-5.0) g/dL Lipase 27 (8-78) U/L Urine Color Yellow Urine Appearance Cloudy Urine pH 7.0 (5.0-9.0) Ur Specific [place] <= 1.005 (1.005-1.025) Urine Protein Negative (Neg-Trace) mg/dL Urine Glucose (UA) Negative (Negative) mg/dL Urine Ketones Negative (Negative) mg/dL Urine Blood Negative (Negative) Urine Nitrite Positive H (Negative) Ur Leukocyte Esterase Trace H (Negative) Urine RBC 0-2 (0-2) /HPF Urine WBC 6-10 H (0-5) /HPF Ur Squamous Epith Cells 11-20 (0-2) /HPF Urine Bacteria 4+ (None Seen) Hyaline Casts 0-2 (0-2) /LPF Independent Interpretation I performed an independent interpretation of an: Plain X-Ray (Left-sided pleural effusion, this has been present on prior images, after she had I am so saw surgery and then chest tube she had a x-ray on February 17 and those already present) Radiology Impression Discussion of test interpretation with radiology: I have reviewed the radiologist's reading. (IMPRESSION: Left-sided without pleural effusion, moderate volume with questionable loculation and small volume pericardial effusion. Consider inflammatory versus infectious process, malignancy cannot be excluded. Hepatomegaly and prominent lymphadenopathy. Lymphoproliferative disorder cannot be e) External Record Review External record reviewed: Inpatient record Tests considered The following testing was considered but not selected: CT angiography Prescription Management I considered prescription management with: Pain Medication Chronic Conditions Patient?s care impacted by: Other (Prior history of lung cancer) Medications Administered Discontinued Medications Generic Name Dose Route Start Last Admin Trade Name Venkatesh PRN Reason Stop Dose Admin Al Hydroxide/Mg Hydroxide 15 ml 09/16/25 10:23 09/16/25 10:35 Magnesium Hydrox/Alum Hydrox 30 Ml Oral.Susp PO 09/16/25 10:24 15 ml ONCE ONE Administration Famotidine 20 mg 09/16/25 10:23 09/16/25 10:35 Famotidine/Pf 20 Mg/2 Ml Vial IVPUSH 09/16/25 10:24 20 mg ONCE ONE Administration Sodium Chloride 1,000 mls @ 999 mls/hr 09/16/25 10:30 09/16/25 12:36 Ns IV 09/16/25 11:30 Infused .Q1H1M RACHEL Infusion Iohexol 100 ml 09/16/25 11:34 09/16/25 11:34 Iohexol 350 Mg/Ml 100 Ml Infus..Btl IV 09/16/25 11:35 85 ml ONCE ONE Administration Lidocaine HCl 15 ml 09/16/25 10:23 09/16/25 10:35 Lidocaine Hcl Viscous 2 % 15 Ml Solution PO 09/16/25 10:24 15 ml ONCE ONE Administration Ondansetron HCl 4 mg 09/16/25 10:23 09/16/25 10:35 Ondansetron Hcl 4 Mg/2 Ml Vial IVPUSH 09/16/25 10:24 4 mg ONCE ONE Administration Discharge Plan Discharge Clinical Impression: Nausea & vomiting, Epigastric abdominal pain, Pleural effusion Patient Disposition: Home, Self-Care Additional Instructions: Evaluated with nausea and vomiting, I suspect this is due to stomach inflammation, I treated do as such and your symptoms improved, there was no evidence for dehydration based on blood work, you have elevated white count that has been present in the past, chest x-ray reveals persistent small left-sided pleural effusion since you have had your surgery, cat scan of the abdomen with nonspecific findings that we will need to be followed up by your primary care physician, cough fevers chills worsening symptoms come back to the ER otherwise take Carafate 20 minutes before any meals for the next 5-7 days, and Zofran as needed for nausea and vomiting Prescriptions: New sucralfate [Carafate] 1 gram tablet 1 g PO Q6H 7 Days Qty: 28 0RF ondansetron 4 mg tablet,disintegrating 4 mg PO Q8H PRN (Reason: nausea and vomiting) Qty: 4 0RF No Action Tirosint-Michelle 200 mcg/mL solution 400 mcg PO DAILY Qty: 60 5RF Rybelsus 7 mg tablet 7 mg PO DAILY montelukast 10 mg tablet 10 mg PO BEDTIME loratadine 10 mg Tablet 10 mg PO DAILY pantoprazole 20 mg tablet,delayed release (DR/EC) 20 mg PO DAILY@1700 ipratropium-albuterol 0.5 mg-3 mg(2.5 mg base)/3 mL solution for nebulization 3 ml inhalation QID PRN (Reason: asthma) hydroxyzine pamoate 50 mg capsule 50 mg PO TID PRN (Reason: anxiety) tramadol 50 mg tablet 50 mg PO Q8H PRN (Reason: severe pain) ascorbic acid (vitamin C) 250 mg tablet 250 mg PO BID@1200,2100 ferrous fumarate [Ferrocite] 324 mg (106 mg iron) tablet 324 mg PO BID@1200,2100 PNV no.95-ferrous fumarate-FA [] 28 mg iron- 800 mcg tablet 1 tab PO DAILY Asmanex HFA 100 mcg/actuation HFA aerosol inhaler 2 puff INHALATION BID omega-3 fatty acids 1,000 mg Capsule 1,000 mg PO DAILY docusate sodium [Colace] 100 mg capsule 100 mg PO BID Qty: 30 0RF tramadol 50 mg tablet 50 mg PO Q4H PRN (Reason: pain) Qty: 20 0RF gabapentin 100 mg Tablet 100 mg PO TID lisinopril 2.5 mg tablet 2.5 mg PO DAILY@1200 metformin 500 mg tablet extended release 24 hr 1,000 mg PO BID atorvastatin 40 mg tablet 40 mg PO BEDTIME acetaminophen 650 mg tablet extended release 650 mg PO Q8H PRN (Reason: Pain) albuterol sulfate 90 mcg/actuation HFA aerosol inhaler 2 puff inhalation QID PRN (Reason: Wheezing) haloperidol 5 mg tablet 2.5 mg PO BEDTIME clonazepam [Klonopin] 1 mg tablet 1 mg PO BID PRN (Reason: Anxiety) glipizide 5 mg tablet 10 mg PO BID bupropion HCl 300 mg tablet extended release 24 hr 300 mg PO DAILY Patient Comments: to equal total dose of 450 mg daily aspirin 81 mg tablet,delayed release (DR/EC) 81 mg PO DAILY aripiprazole 20 mg tablet 20 mg PO BEDTIME bupropion HCl 150 mg tablet extended release 24 hr 150 mg PO DAILY Referrals: Linda Murphy DO [Primary Care Provider, Internal Medicine] - 2 weeks Clinical Impression: Pleural effusion; Epigastric abdominal pain; Nausea & vomiting Print Language: Hong Konger
--- NOTE | 2025-09-16 10:31 | ECG_ITS ---
Test Reason : omoruna Blood Pressure : */* mmHG Vent. Rate : 79 BPM Atrial Rate : 79 BPM P-R Int : 182 ms QRS Dur : 108 ms QT Int : 378 ms P-R-T Axes : 65 -20 53 degrees QTcB Int : 433 ms Normal sinus rhythm Incomplete right bundle branch block Possible Anterior infarct , age undetermined Abnormal ECG When compared with ECG of 21-Jan-2025 11:46, No significant change was found Referred By: Teo Mazariegos Electronically Signed By: Ion Ahumada
[2025-09-16] MEDS: Lidocaine HCl Viscous 2 % 15 ML SOLUTION PO (10:35)
[2025-09-16] MEDS: Magnesium Hydrox/Alum Hydrox 30 ML ORAL.SUSP 15 ML PO (10:35)
[2025-09-16 10:52] LABS: Lipase 27 U/L (8-78)
--- OUTSIDE RECORDS SUMMARY | 2025-09-16 10:52 | XMS_ITS | Encounter Summary ---
Author Organization [employer] Address [address] [place] [address] Care Team Providers Care Geophysical Laboratory Director Name Role Phone Linda Murphy DO Primary Care Provider [phone] Neri Yang PharmD Unavailable Unavail able Antionette Murphy PharmD Unavailable Reason for Visit * Reason Onset Date Comments Results 10/08/2023 Encounter Details Date Type Department Care Team ([facility] st Contact Info) Description 10/08/2023 Telephone [facility] MEDICINE [address] [place] [address] Linda Murphy DO [address], [place] [phone] Results Social History Tobacco Use Types Packs/Day [...] yesterday 10/07/2023 but was transferred to the [facility]. documented in this encounter Plan of [...] documented as of this encounter Care Teams Geophysical Laboratory Director Relationship Specialty Start Date End Date Linda Murphy DO [address] [place] [address] PCP - General Family Medicine 11/24/12 Neri Yang, PharmD [address] [place] [address] Pharmacist Internal Medicine 11/23/22 10/17/23 Antionette Murphy PharmD [address] [place] [phone] Pharmacist Internal Medicine 07/15/24 02/25/25 documented as of this encounter
--- OUTSIDE RECORDS SUMMARY | 2025-09-16 10:52 | XMS_ITS | Clinical Summary ---
Author Organization [employer] Address [address] [place] [address] [address] [place] [address] Care Team Providers Care Outbound Telemarketer Name Role Phone Linda Murphy DO Primary Care Provider [phone] Allergies Active Allergy Reactions Criticality Noted Date [...] reversal. 2 each 3 03/06/20 24 Active ipratropium-albu terol (Duo-Neb) 0.5-2.5 mg/3 mL nebulizer solutionIndicati ons:Chronic obstructive pulmonary disease, unspecified COPD type (CMS/HCC) ([facility]) INHALE 1 AMPULE USING A NEBULIZER FOUR TIMES DAILY NEEDED FOR ASTHMA OR (for COPD) 180 mL 2 07/23/20 24 Active hydrOXYzine pamoate (Vistaril) 50 MG capsule TAKE 1 CAPSULE BY MOUTH THREE TIMES DAILY NEEDED FOR ANXIETY 07/15/20 24 Active loratadine (Claritin) 10 MG tablet TAKE 1 TABLET BY MOUTH EVERY MORNING 30 tablet 11 10/27/20 24 Active tiotropium (Spiriva HandiHaler) 18 MCG inhalation capsuleIndicatio ns:Chronic obstructive pulmonary disease, unspecified COPD type (CMS/HCC) ([facility]) USE 1 CAPSULE FOR INHALATION [...] NOON 90 tablet 3 01/30/20 25 Active atorvastatin (Lipitor) 40 MG tablet TAKE 1 TABLET BY MOUTH AT BEDTIME 30 tablet 5 04/15/20 25 Active glipiZIDE (Glucotrol) 5 MG tablet TAKE 2 TABLETS BY MOUTH TWICE DAILY IN THE MORNING AND EVENING BEFORE MEALS 120 tablet 5 04/15/20 25 Active semaglutide (Rybelsus) 7 MG tabletIndication s:Type 2 diabetes mellitus without complications (HCC) TAKE 1 TABLET BY MOUTH EVERY MORNING 30 MINUTES BEFORE A MEAL 30 tablet 5 04/15/20 25 Active montelukast (Singulair) 10 MG tablet TAKE 1 TABLET BY MOUTH EVERY EVENING 90 tablet 3 04/20/20 25 Active lidocaine (Lidoderm) 5 % patchIndications :Right thigh pain Apply 1 patch topically if needed each day for mild pain. Remove & discard patch within 12 hours or as directed by MD. 30 patch 3 04/21/20 25 Active Ventolin HFA 108 (90 Base) MCG/ACT inhalerIndicatio ns:Chronic obstructive pulmonary disease, unspecified COPD type (CMS/HCC) ([facility]) INHALE 2 PUFFS BY MOUTH EVERY 4 HOURS NEEDED FOR WHEEZING OR SHORTNESS OF BREATH 18 g 2 06/28/20 25 Active baclofen (Lioresal) 10 MG tablet Take 1 tablet (10 mg) by mouth if needed in the morning, at noon, and at bedtime for muscle spasms. 60 tablet 3 07/20/20 25 2025 Active Diclofenac Sodium 1 % gel Apply 2 g topically if needed in the morning, at noon, in the evening, and at bedtime (pain). 150 g 3 07/20/20 25 Active acetaminophen (Tylenol 8 Hour) 650 MG ER tabletIndication s:Acute post-traumatic headache, not intractable TAKE 1 TABLET BY MOUTH EVERY 8 HOURS NEEDED FOR PAIN OR FEVER 60 tablet 3 07/28/20 25 Active Aspirin Low Dose 81 MG EC tabletIndication s:Type 2 diabetes mellitus with other specified complication, unspecified whether longterm insulin use ([facility]) TAKE 1 TABLET BY MOUTH AT BEDTIME 90 tablet 1 08/05/20 25 Active gabapentin (Neurontin) 600 MG tablet TAKE 1 TABLET BY MOUTH THREE TIMES DAILY 90 tablet 3 08/06/20 25 Active Alcohol Swabs (Alcohol Prep) 70 % padsIndications: Type 2 diabetes mellitus without complication, without long-term current use of insulin ([facility]) USE EVERY DAY UP TO TWICE DAILY 100 each 08/31/20 Active TRUEplus Lancets 33G miscIndications: Type 2 diabetes mellitus without complication, without long-term current use of insulin ([facility]) USE TO TEST BLOOD SUGAR UP TO TWICE DAILY 100 each 08/31/20 Active glucose blood (FREESTYLE LITE) test stripIndications :Type 2 diabetes mellitus without complication, without long-term current use of insulin ([facility]) USE TO TEST BLOOD SUGAR UP TO TWICE DAILY 100 strip 11 08/31/20 Active ferrous sulfate 325 (65 Fe) MG EC tablet TAKE 1 TABLET BY MOUTH EVERY DAY. DO NOT BREAK, CRUSH, DISSOLVE OR CHEW 30 tablet 11 08/31/20 25 Active metFORMIN XR (Glucophage-XR) 500 MG 24 hr tabletIndication s:Type 2 diabetes mellitus without complication, without long-term current use of insulin (HCC) Take 2 tablets (1,000 mg) by mouth with breakfast and with evening meal. Do not crush, chew, or split. 360 tablet 1 09/02/20 Active Blood Glucose Monitoring Suppl (FreeStyle Lite) deviceIndication s:Type 2 diabetes mellitus without complication, without long-term current use of insulin (HCC) Inject 1 each under the skin 2 times daily. Use to test blood sugar twice daily, as directed 1 each 09/15/20 Active Blood Glucose Monitoring Suppl (FreeStyle Lite) deviceIndication s:Type 2 diabetes mellitus without complication, without long-term current use of insulin ([facility]) Inject 1 each under the skin 2 times daily. Use to test blood sugar twice daily, as directed 1 each 07/15/20 24 2024 Discontinued(R eorder (will not trigger notification to Pharmacy)) Alcohol Swabs (Alcohol Prep) 70 % padsIndications: Type 2 diabetes mellitus without complication, without long-term current use of insulin ([facility]) USE EVERY DAY UP TO TWICE DAILY 100 each 08/12/20 24 2024 Discontinued glucose blood (FREESTYLE LITE) test stripIndications :Type 2 diabetes mellitus without complication, without long-term current use of insulin ([facility]) Use to check blood sugar up to twice daily 100 each 08/12/20 24 2024 Discontinued TRUEplus Lancets 33G miscIndications: Type 2 diabetes mellitus without complication, without long-term current use of insulin (HCC) Use to check blood sugar up to twice daily 100 each 08/12/20 24 2024 Discontinued metFORMIN XR (Glucophage-XR) 500 MG 24 hr tabletIndication s:Type 2 diabetes mellitus without complication, without long-term current use of insulin (HCC) TAKE 2 TABLETS BY MOUTH TWICE DAILY AT NOON AND IN THE EVENING 360 tablet 1 03/18/202024 Discontinued(R eorder (will not trigger notification to Pharmacy)) traMADol (Ultram) 50 MG tabletIndication s:Chronic bilateral low back pain without sciatica Take 1 tablet (50 mg) by mouth every 8 (eight) hours if needed for severe pain for up to 7 days. 21 tablet 07/28/20 25 2024 ferrous sulfate 325 (65 Fe) MG EC tablet TAKE 1 TABLET BY MOUTH EVERY DAY DO NOT BREAK, CRUSH, DISSOLVE OR CHEW 30 tablet 08/10/20 25 2024 Discontinued Active Problems Problem Noted Date Diagnosed [...] -f/u with pain mgmt prn -advised contact [facility] if sx change or worsen [...] daily -cont regular BS monitoring -re-referred to [facility] pharmacist for eval -cont statin and low-dose lisinopril daily -Cr/GFR nml Aug 2023 with nml urine microalbumin SEP 2022 -s/p optho eval Nov 2022 at [facility], review next visit -s/p nml monofilament MAY 2022 Allergic rhinitis 11/03/2015 Chronic bipolar disorder (CMS/HCC) 11/03/2015 Assessment & Plan (01/28/2024 2:44 PM [...] of left lung 02/11/2025 04/21/2025 Post-menopause bleeding 02/11/2025 0611/2024 Sacroiliitis 02/11/2025 03/29/2025 Vomiting 02/11/2025 03/29/2025 Weakness [...] instrumentation of the toenail - refer to regional sales engineer - TB UTD Plantar callus 08/26/2024 01/27/2025 [...] Encounters Date Type Department Care Team Description 09/16/2025 Orders Only GENERIC EXTERNAL DATA DEPARTMENT Provider, Generic External Data 09/15/2025 Telephone [facility] [address] [place] [address] Yaima Marquez RN Error (VOID this visit) 09/15/2025 Orders Only GENERIC EXTERNAL DATA DEPARTMENT Provider, Generic External Data 09/02/2025 Refill [facility] [address] [place] [address] Linda Murphy, Type 2 diabetes mellitus without complication, without long-term current use of insulin (HCC) 08/30/2025 Refill [facility] [address] [place] [address] Linda Murphy, Type 2 diabetes mellitus without complication, without long-term current use of insulin (HCC) 08/18/2025 Telephone [facility] [address] [place] [address] No Lopez, KRYSTYNA NCNS WILLOW ANALYST RV today; Pt does not want to take Tramadol anymore 08/11/2025 Orders Only [facility] [address] [place] [address] Linda Murphy, 08/09/2025 Refill [facility] [address] [place] [address] Linda Murphy, 08/06/2025 Refill [facility] [address] [place] [phone] Linda Murphy DO 08/04/2025 Refill [facility] [address] [place] [address] Linda Murphy DO Type 2 diabetes mellitus with other specified complication, unspecified whether longterm insulin use (CMS/HCC) 08/03/[address] [address] No Lopez RN cancelled chronic group and WILLOW ANALYST appts multiple times 07/29/[address] [address] Linda Murphy DO telephone call; Reschedule WILLOW ANALYST/Chronic pain group; Blood Sugar Problem 07/28/[address] [address] No Lopez RN NCNS WILLOW ANALYST RV today 07/27/2025 Refill [facility] [address] [place], [place] [phone] Linda Murphy DO Acute post-traumatic headache, not intractable 07/20/2025 11:15 AM EDT Office Visit [address] [address] Linda Murphy DO Type 2 diabetes mellitus without complication, without long-term current use of insulin (CMS/[facility]) (Primary Dx); Other hyperlipidemia; Fatty [...] neoplasm of breast 07/20/2025 Travel 07/19/2025 Refill [facility] [address] [place] [address] Linda Murphy DO Chronic bilateral low back pain without sciatica 07/16/2025 Telephone [facility] [address] [place] [address] Linda Murphy DO Chart Prep 07/15/2025 Refill [facility] [address] [place] [address] Linda Murphy DO 07/14/2025 Refill [facility] [address] [place] [address] Linda Murphy DO Chronic bilateral low back pain without sciatica 07/01/2025 Telephone [facility] [address] [place] [phone] Linda Murphy DO Appointment Request 07/01/2025 Travel 06/27/2025 Refill [facility] [address] [place] [address] Josseline Solis MD Chronic obstructive pulmonary disease, unspecified COPD type ([facility]) 06/22/2025 Refill [facility] [address] [place], [place] [phone] Linda Murphy DO Chronic bilateral low back pain without sciatica 06/21/2025 9:30 AM EDT Clinical Support [address] [address] No Lopez RN Long-term current use of opiate analgesic (Primary Dx) 06/21/[address] [address] No Lopez, KRYSTYNA WILLOW ANALYST Agreement renewed today 06/21/2025 Travel from Last 3 Months Immunizations Immunization Administration [...] 07/20/2025 11:14 AM EDT Plan of Treatment Health Maintenance Due Date Last Done Comments CT Colonography 1972 Colonoscopy 1972 Colorectal Cancer Screening 1972 FIT DNA/Cologuard 1972 FIT 1972 FOBT 1972 Sigmoidoscopy 1972 Eye Exam 1982 Hepatitis A Vaccines (1 [...] history exists Depression Screening 07/20/2026 07/20/2025, 07/20/20 25 Tobacco Screening 07/20/2026 07/20/2025 HPV/Cotest 05/21/2027 05/21/2022, [...] 11:19 AM EDT) No Neri Yang PharmD Procedures Procedure Name Priority Date/Time Associated Diagnosis Comments MAGNESIUM Routine 09/16/2025 9:34 AM EST HEPATIC FUNCTION PANEL Routine 09/16/2025 9:34 AM EST COMPREHENSIVE METABOLIC PANEL Routine 09/16/2025 9:34 AM EST URINALYSIS, COMPLETE, WITH REFLEX TO CULTURE Routine 09/16/2025 9:34 AM EST CBC WITH AUTO DIFFERENTIAL Routine 09/16/2025 9:34 AM EST GLUCOSE, WHOLE BLOOD Routine 09/16/2025 9:15 AM EST TSH Routine 09/15/2025 11:17 AM EST T4, FREE Routine 09/15/2025 11:17 AM EST ALPHA FETOPROTEIN, TUMOR MARKER Routine 07/20/2025 12:57 PM EDT Type 2 [...] EDT Long-term current use of opiate analgesic HEPATITIS C AB W/REFL TO HCV RNA, QN, PCR Routine 04/26/2025 11:11 AM EDT Type 2 diabetes mellitus without complication, without long-term current use of insulin ([facility]/HCC) Right thigh pain HIV 1/2 ANTIGEN/ANTIBODY, FOURTH GENERATION W/RFL Routine 04/26/2025 11:11 AM EDT Type 2 diabetes mellitus without complication, without long-term current use of insulin ([facility]/HCC) Right thigh pain ALBUMIN, RANDOM URINE W/CREATININE Routine 04/26/2025 11:11 AM EDT Type 2 diabetes mellitus without complication, without long-term current use of insulin ([facility]/HCC) Right thigh pain LIPID PANEL, STANDARD Routine 04/26/2025 11:11 AM EDT Type 2 diabetes mellitus without complication, without long-term current use of insulin ([facility]/HCC) Right thigh pain AMB REFERRAL TO PODIATRY Routine 03/04/2025 Toenail avulsion, initial encounter Plantar callus Onychomycosis of multiple toenails with type 2 diabetes mellitus (CMS/HCC) ([facility]/HCC) ZZZ HISTORICAL HPV E6/E7 RFLX LUIS 16 18/45 Routine 05/21/2022 3:45 PM EDT PAP SMEAR Routine 02/15/2022 12:00 AM EDT BI MAMMOGRAM SCREENING BILATERAL Routine 04/01/2019 2:56 PM EDT from Last 3 Months or Most Recently Relevant to Health Maintenance Results * (ABNORMAL) Urinalysis, Complete, with Reflex to Culture (09/16/2025 9:34 AM EST) Color Urine Yellow [facility] Appearance Urine Cloudy [facility] PH 7.0 5.0 - 9.0 [facility] Glucose Urine UA Negative Negative mg/dL [facility] Urine Blood Negative Negative [facility] Specific [place] - Urine <=1.005 1.005 - 1.025 [facility] Urine Protein Negative Neg-Trace mg/dL [facility] Urine Ketones Negative Negative mg/dL [facility] Nitrite Urine Positive(A) Negative [facility] Leukocyte Esterase Urine Trace(A) Negative [facility] RBC Urine 0-2 0 - 2 /HPF [facility] Urine WBC 6-10(A) 0 - 5 /HPF [facility] Urine Squamous Epithelial Cell 11-20 0 - 2 /HPF [facility] Urine Bacteria 4+ None Seen [facility] Hyaline Casts, Urine 0-2 0 - 2 /LPF [facility] 09/16/2025 9:34 AM EST 09/16/2025 9:39 AM EST Narrative [facility] - 09/16/2025 9:54 AM EST [id number], [employer] us Generic External Data Provider LAB URINE ORDERAB LES Final Result [facility] [address] [place] [phone] * (ABNORMAL) CBC auto differential (09/16/2025 9:34 AM EST) Only the most recent of2 resultswithin the time period is included. White Blood Count 17.1(H) 4.8 - 10.8 X10*3/uL [facility] Red Blood Count 4.90 4.20 - 5.50 X10*6/uL [facility] Hemoglobin 13.0 12.0 - 16.0 g/dl [facility] Hematocrit 39.9 37.0 - 47.0 % [facility] Mean Corpuscular Volume 81.4 80.0 - 98.0 fL [facility] Mean Corpuscular Hemoglobin 26.5(L) 27.0 - 33.0 pg [facility] Mean Corpuscular HGB Conc 32.6 31.0 - 35.0 g/dl [facility] Red Cell Distribution Width 14.5 11.0 - 16.0 % [facility] Platelet Count 353 160 - 400 X10*3/uL [facility] Mean Platelet Volume 9.6 9.4 - 12.3 fL [facility] Neutrophils Percent Auto 76.2(H) 45 - 73 % [facility] Imm Gran Pct Auto 0.4 0.0 - 0.4 % [facility] Lymphocytes Percent Auto 16.2(L) 20 - 40 % [facility] Monocytes Percent Auto 6.0 2 - 11 % [facility] Eosinophils Percent Auto 0.7 0 - 4 % [facility] Basophils Percent Auto 0.5 0 - 2 % [facility] NRBC Pct Auto 0.1 0.0 - 0.2 /100WBC [facility] Neutrophils Absolute Auto 13.1(H) 2.0 - 8.3 x10*3/uL [facility] Imm Gran Abs Auto 0.07(H) 0.00 - 0.03 X10*3/uL [facility] Lymphocytes Absolute Auto 2.8 1.2 - 4.9 X10*3/uL [facility] Monocytes Absolute Auto 1.0 0.1 - 1.2 X10*3/uL [facility] Eosinophils Absolute Auto 0.1 0.0 - 0.4 X10*3/uL [facility] Basophils Absolute Auto 0.1 0.0 - 0.2 X10*3/uL [facility] NRBC Abs Auto 0.020(H) 0.0 - 0.012 X10*3/uL [facility] 09/16/2025 9:34 AM EST 09/16/2025 9:39 AM EST us Generic External Data Provider LAB BLOOD ORDERAB LES Final Result [facility] [address] [place] [phone] * Magnesium (09/16/2025 9:34 AM EST) Magnesium 1.7 1.6 - 2.6 mg/dL [facility] 09/16/2025 9:34 AM EST 09/16/2025 9:39 AM EST us Generic External Data Provider LAB BLOOD ORDERAB LES Final Result Performing Organization Address [facility] Co de Phone Number [facility] [address] [place] [phone] * Hepatic Function Panel (09/16/2025 9:34 AM EST) Pathologist [facility] Bilirubin, Direct 0.1 0.0 - 0.5 mg/dL [facility] 09/16/2025 9:34 AM EST 09/16/2025 9:39 AM EST Generic External Data Provider LAB BLOOD ORDERAB LES Final Result Performing Organization Address [facility] de Phone Number [facility] [address] [place] [phone] * (ABNORMAL) Comprehensive Metabolic Panel (09/16/2025 9:34 AM EST) Pathologist [facility] Sodium 136 135 - 145 mmol/L [facility] Potassium 4.2 3.3 - 5.1 mmol/L [facility] Chloride 97 96 - 108 mmol/L [facility] Carbon Dioxide 31(H) 22 - 29 mmol/L [facility] Anion Gap 12 12 - 20 [facility] Urea Nitrogen (BUN) 9 9 - 16 mg/dL [facility] Creatinine, Serum 1.14 0.5 - 1.4 mg/dL [facility] Creatinine Clr Calc Pharmacy 67.4 [facility] Comment:Provided height and weight: 170.18 cm,94.8 kg.eGFR (calculated from the MDRD study equation) and eCrCl(calculated from the Cockcroft-Gault equation) are based ondifferent parameters and may not yield comparable results.If eCrCl result is absurd, please check patient'sheight/weight. Estimated Glomerular Filt Rate 50 [facility] Comment:Chronic Kidney Disea se: Estimated GFR < 60 mL/min/1.35m9Fwnkus Kidney Disease: Estimated GFR < 15 mL/min/1.73m2 Glucose 293(H) 60 - 115 mg/dL [facility] Calcium 9.1 8.4 - 10.2 mg/dL [facility] Bilirubin, Total 0.3 0.0 - 1.0 mg/dL [facility] Aspartate Amino Transferase 23 5 - 31 U/L [facility] Alanine Aminotransferase 28 0 - 31 U/L [facility] Total Protein 8.0 6.5 - 8.0 g/dL [facility] Albumin Level 4.4 3.5 - 5.0 g/dL [facility] Alkaline Phosphatase 124(H) 39 - 117 U/L [facility] 09/16/2025 9:34 AM EST 09/16/2025 9:39 AM EST us Generic External Data Provider LAB BLOOD ORDERAB LES Final Result Performing Organization Address [facility] Co de Phone Number [facility] [address] [place] [phone] * (ABNORMAL) Glucose, Whole Blood (09/16/2025 9:15 AM EST) Glucose, Whole Blood 333(H) 60 - 115 mg/dL [facility] Comment:METER #: [id number] 09/16/2025 9:15 AM EST 09/16/2025 9:19 AM EST us Generic External Data Provider LAB BLOOD ORDERAB LES Final Result Performing Organization Address [facility] Co de Phone Number [facility] [address] [place] [phone] * (ABNORMAL) TSH (09/15/2025 11:17 AM EST) Thyroid Stimulating Hormone 8.02(H) 0.32 - 4.0 uIU/mL [facility] Comment:Note: A sustained TS H level above 2.5 uIU/mL may warrant further investigation. TSH 3rd Generation ([facility]) 09/15/2025 11:1 7 AM EST 09/15/2025 11:17 AM EST Generic External Data Provider LAB BLOOD ORDERAB LES Final Result Performing Organization Address City/[facility]/ZIP Co de Phone Number [facility] [address] [place] [phone] * T4, Free (09/15/2025 11:17 AM EST) Free T4 (Free Thyroxine) 0.94 0.71 - 1.85 ng/dL [facility] 09/15/2025 11:1 7 AM EST 09/15/2025 11:17 AM EST Generic External Data Provider LAB BLOOD ORDERAB LES Final Result Performing Organization Address City/[facility] Co de Phone Number [facility] [address] [place] [phone] * Vitamin B12 (Cobalamin) and Folate Panel, Serum (07/20/2025 12:57 PM EDT) Vitamin B12 377 200 - 900 pg/mL [facility] Comment:NORMAL 200-900 PG/ML INDETERMINATE 160-199 PG/ML DEFICIENT < 160 PG/ML Folate 14.2 > or = 4.0 ng/mL [facility] Comment:Reference Values:> o r = 4.0 ng/mL< 4.0 ng/mL suggests folate deficiency Methotrexate, aminopterin and folinic acid(leucovorin) are chemotherapeutic agents whose molecularstructures are similar to folate; therefore, the Architectfolate assay cannot be used for patients using these drugs. Blood 07/20/2025 12:5 7 PM EDT 07/20/2025 12:57 PM EDT Linda Murphy DO LAB BLOOD ORDERABLES Final R esult Performing Organization Address [facility]/ZIP Co de Phone Number [facility] [address] [place] [phone] * Iron And Total Iron Binding Capacity (07/20/2025 12:57 PM EDT) Pathologist [facility] Iron 59 30 - 160 mcg/dL [facility] Comment:Slight Hemolysis.Int erpret result with caution. Total Iron Binding Capacity 303 228 - 428 mcg/dL [facility] Percent Iron Saturation 19 15 - 50 % [facility] Unsaturated Iron Binding 244 ug/dL [facility] Blood Venous blood specimen / Unknown 07/20/2025 12:57 PM EDT 07/20/2025 12:57 PM EDT Linda Murphy LAB BLOOD ORDERABLES Final R esult Performing Organization Address [facility] Co de Phone Number [facility] [address] [place] [phone] * Alpha-Fetoprotein, Tumor Marker (07/20/2025 12:57 PM EDT) [facility] Alpha Fetoprotein 2.7 ng/mL [facility] Comment:Reference Range: <6. 1The use of AFP as a tumor marker in females is not recommended.This test was performed using the Johny Coulterchemiluminescent method. Values obtained fromdifferent assay methods cannot be usedinterchangeably. AFP levels, regardless ofvalue, should not be interpreted as absoluteevidence of the presence or absence of disease.THIS TEST WAS PERFORMED AT:[facility] [place] [phone] DURANT MD Blood Venous blood specimen / Unknown 07/20/2025 12:57 PM EDT 07/20/2025 12:57 PM EDT Linda Murphy DO LAB BLOOD ORDERABLES Final R esult Performing Organization Address [facility] Co de Phone Number [facility] [address] [place] [phone] * (ABNORMAL) Partial Thromboplastin Time, Activated (APTT) (07/20/2025 12:57 PM EDT) Partial Thromboplastin Time 40.1(H) 26.7 - 34.1 SEC [facility] Blood Venous blood specimen / Unknown 07/20/2025 12:57 PM EDT 07/20/2025 12:57 PM EDT Linda Murphy DO LAB BLOOD ORDERABLES Final R esult Performing Organization Address [facility] Co de Phone Number [facility] [address] [place] [address] [phone] * (ABNORMAL) Prothrombin Time-INR (07/20/2025 12:57 PM EDT) Prothrombin Time 10.6(L) 10.9 - 12.4 SEC [facility] INTERNATIONAL NORM RATIO 0.9 0.9 - 1.1 [facility] Comment:INTERNATIONAL NORMAL IZED RATIO (INR) [...] ORDERABLES Final R esult Performing Organization Address [facility] Co de Phone Number [facility] [address] [place] [address] [phone] * Ferritin (07/20/2025 12:57 PM EDT) [facility] Ferritin 58 10 - 250 ng/mL [facility] Blood Venous blood specimen / Unknown 07/20/2025 12:57 PM EDT 07/20/2025 12:57 PM EDT Linda Murphy DO LAB BLOOD ORDERABLES Final R esult [facility] [address] [place] [address] [phone] * (ABNORMAL) POCT Hgb A1c (07/20/2025 11:19 AM EDT) [facility] Hemoglobin A1C 8.1(A) 4.0 - 5.7 % QC Media Lot # [id number] Lot# Expiration Date Blood 07/20/2025 11:1 9 AM EDT Lindameme Murphy DO POINT OF CARE TEST ENTER/JAME T ORDERABLES Final Result * POCT Glucose (07/20/2025 11:18 AM EDT) [facility] Glucose Blood, POC 134 60 - 200 mg/dL QC Media Lot # [id number] Lot# Expiration Date 145 Blood Capillary blood specimen / Unknown 07/20/2025 11:18 AM EDT Linda TapInfluencedillonLinPrim DO POINT OF CARE TEST ENTER/JAME T ORDERABLES Final Result * POCT GAIL-14 Urine Drug Screen (06/21/2025 9:36 AM EDT) [facility] THC Positive Negative Cocaine Screen, Urine Negative [...] - 06/21/2025 9:36 AM EDT UTOX cup Lot#[id number] Exp. 08/17/26 Internal Pass Control Linda Murphy DO POINT OF CARE TEST ENTER/JAME T ORDERABLES Final Result * Albumin, Random Urine W/Creatinine (04/26/2025 11:11 AM EDT) Creatinine, Urine 52.62 mg/dL [facility] Microalbumin Urine 11.0 mg/L [facility] Microalbum Creatinine Ratio Ur 20.9 <30 ug/mg cr [facility] Comment:Albumin/Creatinine R atio Reference Ranges: Normal: < 30 ug/mg creatinine Microalbuminuria: 30 - 300 ug/mg creatinineClinical Albuminuria: > 300 ug/mg creatinine Urine (Urine, Random) 04/26/2025 11:11 AM EDT 04/26/2025 12:56 PM EDT Linda Murphy DO LAB URINE ORDERABLES Final R esult [facility] [address] [place] [phone] * Hepatitis C Antibody with Reflex to HCV, RNA, Quantitative, Real-Time PCR (04/26/2025 11:11 AM EDT) Hepatitis C Antibody Nonreactive Nonreactive [facility] Comment:Antibodies to HCV no t detected; does not exclude early acuteHCV infection. Blood Venous blood specimen / Unknown 04/26/2025 11:11 AM EDT 04/26/2025 12:56 PM EDT Linda Katherine DO LAB BLOOD ORDERABLES Final R esult Performing Organization Address City/[facility]/ZIP Co de Phone Number [facility] [address] [place] [address] [phone] * HIV-1/2 Antigen and Antibodies, Fourth Generation, with Reflexes (04/26/2025 11:11 AM EDT) HIV AB/AG Nonreactive Nonreactive [facility] Comment:HIV-1 p24 Ag and/or HIV-1/HIV-2 Ab not detected.A test result that is nonreactive does not exclude thepossibility of exposure to or infection with HIV-1 and/orHIV-2. Nonreactive results in this assay for individualswith prior exposure to HIV-1 and/or HIV-2 may be due toantigen and antibody levels that are below the limit ofdetection of this assay.The [employer] HIV Ag/Ab Combo assay result andsupplemental assay results should be interpreted inconjunction with the patient's clinical presentation,history and other laboratory results. If the results areinconsistent with clinical evidence, additional testing issuggested to confirm the result. Blood Venous blood specimen / Unknown 04/26/2025 11:11 AM EDT 04/26/2025 12:56 PM EDT us Linda Katherine DO LAB BLOOD ORDERABLES Final Silva doyle Performing Organization Address [facility]/ZIP Co de Phone Number [facility] [address] [place] [phone] * (ABNORMAL) Lipid Panel, Standard (04/26/2025 11:11 AM EDT) Triglycerides 161(H) <150 mg/dL [facility] Comment:Desirable Triglyceri de: less than 150 mg/dLBorderline High Triglyceride 150-199 mg/dLHigh Triglyceride: 200-499 mg/dLVery High Triglyceride: greater than or equal to 5OO mg/dL Cholesterol 139 <200 mg/dL [facility] Comment:Desirable Cholestero l: less than 200 mg/dLBorderline High Cholesterol: 200-239 mg/dLHigh Cholesterol: greater than 239 mg/dL LDL Cholesterol Calculated 64 <100 mg/dL [facility] Comment:Desirable LDL: less than 100 mg/dLNear Optimal/Above Optimal LDL: 110- 129 mg/dLBorderline High LDL: 130-159 mg/dLHigh LDL: 160-189 mg/dLVery High LDL: greater than or equal to 190 mg/dL HDL Cholesterol 43 >40 mg/dL [facility] Comment:Desirable HDL: great er than 40 mg/dL Note: This HDL assay may give artificially low results in patients with liver disease. Blood Venous blood specimen / Unknown 04/26/2025 11:11 AM EDT 04/26/2025 12:56 PM EDT us Linda Murphy DO LAB BLOOD ORDERABLES Final R esult [facility] [address] [place] [address] [phone] * Referral to Podiatry (03/04/2025) us Asuncion Bailey MD OUTPATIENT REFERRAL ANDERSON VALENTINO Final Result * HPV E6/E7 RFLX LUIS 16 18/45 (05/21/2022 3:45 PM EDT) HPV mRNA E6/E7 rflx Not Detected Not Detected [facility] Comment: Methodology: Property Management Accountant-Mediated Amplification This assay detects E6/E7 viral messenger RNA (mRNA) from 14 high-risk HPV types (16,18,31,33,35,39,45,51,52,56,58,59,66,68). Cervical sources are required for HPV testing. If a vaginal source from a patient who has had a total hysterectomy with removal of cervix was submitted, please contact the testing laboratory for alternative testing options. For additional information, please refer to http://education.Pro.com/faq/SZD955r6 (This link if provided for information/ educational purposes only.) THIS TEST WAS PERFORMED AT: [facility] [address] [address] VALERIA DURANT MD 05/21/2022 3:45 PM EDT Fercho Palmer MD HISTORICAL/NON ORDERABLE LABS Fi nal Result [facility] [address] * Pap Smear (02/15/2022 12:00 AM EDT) Swab Linda Murphy DO LAB CYTOLOGY ORDERABLES Ce l Result Performing Organization Address City/[facility]/ZIP Co de Phone Number [facility] [address] [place] [address], [place] [address] * DIGITAL BILATERAL SCREEN 1 (04/01/2019 2:56 [...] Most Recently Relevant to Health Maintenance Insurance [id number] ONE CARE < 65 [employer] Care Teams Outbound Telemarketer Relationship Specialty Start Date End Date Linda Murphy DO [address] [place] [phone] PCP - General Family Medicine 11/24/12
--- OUTSIDE RECORDS SUMMARY | 2025-09-16 10:52 | XMS_ITS | Encounter Summary ---
Author Organization [employer] Address [address] [facility] 7t [place] [address] Care Team Providers Care Documentation Supervisor Name Role Phone Linda Murphy DO Primary Care Provider DelNeri zavala PharmD Unavailable Unavail able Antionette Murphy PharmD Unavailable Reason for Visit * Reason Onset Date Comments Letter for School/Work 03/07/2023 Encounter Details Date Type Department Care Team ([facility] st Contact Info) Description 03/07/2023 Telephone [facility] [address] [place] [address] Linda Murphy DO [address] [place] [address] Letter for School/Work Social History Tobacco Use [...] mailed due to COVID Please contact at [phone] documented in this encounter Plan of Treatment [...] documented as of this encounter Care Teams Documentation Supervisor Relationship Specialty Start Date End Date Linda Murphy DO [address] [place] [address] PCP - General Family Medicine 11/24/12 Neri Yang, PharmD [address] [place] [phone] Pharmacist Internal Medicine 11/23/22 10/17/23 Antionette Murphy PharmD [address] [place] [address] Pharmacist Internal Medicine 07/15/24 02/25/25 documented as of this encounter
--- OUTSIDE RECORDS SUMMARY | 2025-09-16 10:52 | XMS_ITS | Encounter Summary ---
Author Organization [employer] Address [address] [facility] 7t [place] [address] Care Team Providers Care Building Construction Supervisor Name Role Phone Linda Murphy DO Primary Care Provider [phone] Antionette Murphy PharmD Unavailable [phone] Reason for Visit * Reason Comments Med Refill Encounter Details Date Type Department Care Team ([facility] st Contact Info) Description 11/24/2023 Refill [facility] [address] [place] [address] Linda Murphy DO [address] [place] [address] Social History Tobacco Use Types Packs/Day Years [...] documented as of this encounter Care Teams Building Construction Supervisor Relationship Specialty Start Date End Date Linda Murphy DO [address] [place] [address] PCP - General Family Medicine 11/24/12 Antionette Murphy PharmD [address] [place] [address] Pharmacist Internal Medicine 07/15/24 02/25/25 documented as of this encounter
--- OUTSIDE RECORDS SUMMARY | 2025-09-16 10:52 | XMS_ITS | Encounter Summary ---
Author Organization [facility] Address [address] [facility] [address] [place] [phone] Phone Care Team Providers Care Medical Certification Specialist Name Role Phone Linda Murphy DO Primary Care Provider [phone] Encounter Details Date Type Department Care Team (Late st Contact Info) Description 07/03/2024 Procedure Pass [facility], Ct Scan - [address] [address] Social History Tobacco Use Types Packs/Day Years Used Date Smoking Tobacco: Every Day Cigarettes Smokeless Tobacco: Never Alcohol Use Standard Drinks/Week Comments Not Currently 0 (1 standard drink = 0.6 oz pur e alcohol) Education Answer Date Recorded Are you interested in more education? Not on maryg e 07/03/2024 Are you concerned about learning? [...] 3:17 PM EDT Antonia Beaulieu RN * Ursa Suicide Severity Rating Scale (Screener/Recent Self-Report) Question [...] on filedocumented in this encounter Care Teams Medical Certification Specialist Relationship Specialty Start Date End Date Linda Murphy DO [address] [place] [address] PCP - General Family Medicine 07/03/24 documented as of this encounter Additional Source Comments The information contained in this document represents components of the legal health record. It is not the complete legal health record.[facility]
--- OUTSIDE RECORDS SUMMARY | 2025-09-16 10:52 | XMS_ITS | Encounter Summary ---
Author Organization [employer] Address [address] [facility] 7t [place] [address] Care Team Providers Care Tandem Operator Name Role Phone Joelle Murphyfer Primary Care Provider + [phone] Encounter Details Date Type Department Care Team (Late st Contact Info) Description 09/15/2025 Orders Only GENERIC EXTERNAL DATA DEPARTMENT [...] the past 12 months, has t he [employer], gas, oil or water company threatened to [...] Procedure Name Priority Date/Time Associated Diagnosis Comments TSH Routine 09/15/2025 11:17 AM EST T4, FREE Routine 09/15/2025 11:17 AM EST documented in this encounter Results * (ABNORMAL) TSH (09/15/2025 11:17 AM EST) Thyroid Stimulating Hormone 8.02(H) 0.32 - 4.0 uIU/mL [facility] Comment:Note: A sustained TS H level above 2.5 uIU/mL may warrant further investigation. TSH 3rd Generation ([facility]) 09/15/2025 11:1 7 AM EST 09/15/2025 11:17 AM EST us Generic External Data Provider LAB BLOOD ORDERAB LES Final Result [facility] [address] [place] [phone] * T4, Free (09/15/2025 11:17 AM EST) Free T4 (Free Thyroxine) 0.94 0.71 - 1.85 ng/dL [facility] 09/15/2025 11:1 7 AM EST 09/15/2025 11:17 AM EST us Generic External Data Provider LAB BLOOD ORDERAB LES Final Result [facility] [address] [place] [phone] documented in this encounter Visit Diagnoses Not on filedocumented in this encounter Additional Health Concerns Assessment Noted Time PHQ-9 Depression Total Score: 0 07/20/20 25 11:20 AM EDT documented as of this encounter Care Teams Tandem Operator Relationship Specialty Start Date End Date Linda Murphy DO [address] [place] [address] PCP - General Family Medicine 11/24/12 documented as of this encounter
--- OUTSIDE RECORDS SUMMARY | 2025-09-16 10:52 | XMS_ITS | Clinical Summary ---
Author Organization [facility] Address [address] [address] Phone Care Team Providers Care Member Service Specialist Name Role Phone Linda Murphy DO Primary Care Provider [phone] Allergies Active Allergy Reactions Criticality Noted Date [...] topic Medical Devices Not on file Insurance [facility] MEDICARE PART A & B [facility] ONE CARE MEDICARE REPLACEMENT [facility] PART A & B [facility] ONE CARE MEDICARE REPLACEMENT [place] [id number] [facility] MED[facility] PART A & B [facility] ONE CARE MEDICARE REPLACEMENT [facility] MEDICARE PART A & B [facility] CARE MEDICARE REPL[place]EMENT [address] [place] [address] MEDICARE PART A & B [facility] ONE CARE MEDICARE REPLACEMENT [facility] MEDICARE PART A & B [facility] ONE CARE MEDICARE REPLACEMENT Care Teams Member Service Specialist Relationship Specialty Start Date End Date Linda Murphy DO [address] [place] [address] PCP - General Family Medicine 07/03/24 Additional Source Comments The information contained in this document represents components of the legal health record. It is not the complete legal health record.[facility]
--- OUTSIDE RECORDS SUMMARY | 2025-09-16 10:52 | XMS_ITS | Encounter Summary ---
Author Organization [employer] Address [address] [facility] 7t [place] [address] Care Team Providers Care Radiotelephone Technical Operator Name Role Phone Linda Murphy DO Primary Care Provider [phone] Dellogla Neri PharmD Unavailable Unavail able Antionette Murphy PharmD Unavailable Reason for Visit * Reason Comments Med Refill Encounter Details Date Type Department Care Team (Late st Contact Info) Description 04/10/2023 Refill [facility] [address] [place] [address] Linda Murphy DO [address] [facility] [place] [address] Social History Tobacco Use Types Packs/Day Years [...] documented as of this encounter Care Teams Radiotelephone Technical Operator Relationship Specialty Start Date End Date Linda Murphy DO [address] [place] [address] PCP - General Family Medicine 11/24/12 Neri Yang, PharmD [address] [place] [phone] Pharmacist Internal Medicine 11/23/22 10/17/23 Antionette Murphy PharmD [address] [place] [address] Pharmacist Internal Medicine 07/15/24 02/25/25 documented as of this encounter
--- OUTSIDE RECORDS SUMMARY | 2025-09-16 10:52 | XMS_ITS | Encounter Summary ---
Author Organization [employer] Address [address] [facility] [address] 7t [place] [address] Care Team Providers Care Tile Installer Name Role Phone Linda Murphy DO Primary Care Provider [phone] Antionette Murphy PharmD Unavailable [phone] Reason for Visit * Reason Onset Date Comments Medication Question 11/13/2023 Encounter Details Date Type Department Care Team ([facility] st Contact Info) Description 11/13/2023 Telephone [facility] [address] [place] [address] Linda Murphy DO [address] [place] [address] Medication Question Social History Tobacco Use Types [...] 11/08 Physical appointment. Please contact pt at [phone] documented in this encounter Plan of Treatment Not on file documented as of this encounter Goals Goal Patient Goal Type Associated Problems Recent Progress Patient-Stated? Author Hemoglobin A1c < 7 Result Component 8.1(07/20/2025 11:19 AM EDT) No Neri Yang, EricD documented as of this encounter Visit Diagnoses Not on filedocumented in this encounter Additional Health Concerns Assessment Noted Time PHQ-9 Depression Total Score: 0 02/27/20 23 11:42 AM EDT documented as of this encounter Care Teams Tile Installer Relationship Specialty Start Date End Date Linda Murphy DO [address] [place] [address] PCP - General Family Medicine 11/24/12 Antionette Murphy PharmD [address] [place] [address] Pharmacist Internal Medicine 07/15/24 02/25/25 documented as of this encounter
--- OUTSIDE RECORDS SUMMARY | 2025-09-16 10:52 | XMS_ITS | Encounter Summary ---
Author Organization [employer] Address [address] [facility] [address] 7[address] [place] [address] Care Team Providers Care Scrap Metal Collector Name Role Phone Linda Murphy DO Primary Care Provider [phone] Encounter Details Date Type Department Care Team ([facility] Contact Info) Description 08/11/2025 Orders Only [facility] [address] [place] [address] Linda Murphy DO [address] [place] [address] Social History Tobacco Use Types Packs/Day Years [...] documented as of this encounter Care Teams Scrap Metal Collector Relationship Specialty Start Date End Date Linda Murphy DO [address] [place] [address] PCP - General Family Medicine 11/24/12 documented as of this encounter
--- OUTSIDE RECORDS SUMMARY | 2025-09-16 10:52 | XMS_ITS | Encounter Summary ---
Author Organization [employer] Address [address] [place] [address] 7t [place] [address] Care Team Providers Care Shopping Investigator Name Role Phone Linda Murphy DO Primary Care Provider DelNeri zavala PharmD Unavailable Unavail able Antionette Murphy PharmD Unavailable Reason for Visit * Reason Comments Med Refill Encounter Details Date Type Department Care Team (Late st Contact Info) Description 07/08/2023 Refill [facility] MED[facility] [address] [place] [address] Linda Murphy DO [address] [place] [address] Pain Social History Tobacco Use Types Packs/Day [...] documented as of this encounter Care Teams Shopping Investigator Relationship Specialty Start Date End Date Linda Murphy DO [address] [place] [address] PCP - General Family Medicine 11/24/12 Neri Yang, PharmD [address] [place] [address] Pharmacist Internal Medicine 11/23/22 10/17/23 Antionette Murphy PharmD [address] [place] [address] Pharmacist Internal Medicine 07/15/24 02/25/25 documented as of this encounter
--- OUTSIDE RECORDS SUMMARY | 2025-09-16 10:52 | XMS_ITS | Encounter Summary ---
Author Organization [employer] Address [address] [facility] 7t [place] [address] Care Team Providers Care Index Editor Name Role Phone Linda Murphy DO Primary Care Provider [phone] DellogNeri tovar PharmD Unavailable Unavail able Antionette Murphy PharmD Unavailable Reason for Visit * Reason Onset Date Comments triage 11/14/2022 Encounter Details Date Type Department Care Team (Late st Contact Info) Description 11/14/2022 Telephone [facility] [address] [place] [address] Linda Murphy DO [address] [place], [place] [phone] triage Social History Tobacco Use Types Packs/Day [...] call Pt reports seen [facility] [place]. Pt reports bruising on bilateral [...] on filedocumented in this encounter Care Teams Index Editor Relationship Specialty Start Date End Date Linda Murphy DO [address] [place] [address] PCP - General Family Medicine 11/24/12 Neri Yang PharmD [address] [place] [address] Pharmacist Internal Medicine 11/23/22 10/17/23 Antionette Murphy PharmD [address] [place] [address] Pharmacist Internal Medicine 07/15/24 02/25/25 documented as of this encounter
--- OUTSIDE RECORDS SUMMARY | 2025-09-16 10:52 | XMS_ITS | Encounter Summary ---
Author Organization [employer] Address [address] [facility] 7t [place] [address] Care Team Providers Care Mixer And Scaler Name Role Phone Linda Murphy DO Primary Care Provider DelNeri zavala PharmD Unavailable Unavail able Antionette Murphy PharmD Unavailable [phone] Reason for Visit * Reason Onset Date Comments letter michael lopez 07/26/2023 Encounter Details Date Type Department Care Team (Late st Contact Info) Description 07/26/[address] [facility] MEDICINE [address] [place] [address] Linda Murphy DO [address] [place], [place] [phone] letter michael lopez Social History Tobacco Use [...] to Medical side. Please contact pt at [phone] documented in this encounter Plan of Treatment [...] documented as of this encounter Care Teams Mixer And Scaler Relationship Specialty Start Date End Date Linda Murphy DO [address] [place] [phone] PCP - General Family Medicine 11/24/12 Neri Yang, PharmD [address] [place] [phone] Pharmacist Internal Medicine 11/23/22 10/17/23 Antionette Murphy PharmD [address] [place] [phone] Pharmacist Internal Medicine 07/15/24 02/25/25 documented as of this encounter
--- OUTSIDE RECORDS SUMMARY | 2025-09-16 10:52 | XMS_ITS | Encounter Summary ---
Author Organization [employer] Address [address] [facility] 7t [place] [address] Care Team Providers Care Professional Programmer Analyst Name Role Phone Linda Murphy DO Primary Care Provider [phone] Antionette Murphy PharmD Unavailable [phone] Reason for Visit * Reason Comments Med Refill Encounter Details Date Type Department Care Team ([facility] st Contact Info) Description 02/23/2024 Refill [facility] MEDICINE [address] [place] [address] Linda Murphy DO [address] [place] [address] Chronic obstructive pulmonary disease, unspecified COPD type [...] obstructive pulmonary disease, unspecified COPD type (CMS/HCC) (HCC) Pain Generalized pain documented in this encounter Additional Health Concerns Assessment Noted Time PHQ-9 Depression Total Score: 0 02/27/20 23 11:42 AM EDT documented as of this encounter Care Teams Professional Programmer Analyst Relationship Specialty Start Date End Date Linda Murphy DO [address] [place] [address] PCP - General Family Medicine 11/24/12 Antionette Murphy PharmD [address] [place] [address] Pharmacist Internal Medicine 07/15/24 02/25/25 documented as of this encounter
--- OUTSIDE RECORDS SUMMARY | 2025-09-16 10:52 | XMS_ITS | Encounter Summary ---
Author Organization [employer] Address [address] [facility] [address] 7t [place] [address] Care Team Providers Care Fruit Grading Supervisor Name Role Phone Linda Murphy DO Primary Care Provider [phone] Reason for Visit * Reason Comments Med Refill Encounter Details Date Type Department Care Team ([facility] st Contact Info) Description 07/14/2025 Refill [facility] MED & PEDS [address] [place] [address] Linda Murphy DO 230 [facility] [place] [address] Chronic bilateral low back pain without sciatica [...] Result Component 8.1(07/20/2025 11:19 AM EDT) No PérezlogNeri tovar, PharmD documented as of this encounter Visit Diagnoses Diagnosis Chronic bilateral low back pain without sciatica documented in this encounter Additional Health Concerns Assessment Noted Time PHQ-9 Depression Total Score: 0 01/20/20 25 12:15 PM EDT documented as of this encounter Care Teams Fruit Grading Supervisor Relationship Specialty Start Date End Date Linda Murphy DO [address] [place] [address] PCP - General Family Medicine 11/24/12 documented as of this encounter
--- OUTSIDE RECORDS SUMMARY | 2025-09-16 10:52 | XMS_ITS | Encounter Summary ---
Author Organization [facility] Address [address] [facility] [address] [place] [phone] Phone Care Team Providers Care Inspection Supervisor Name Role Phone Linda Murphy DO Primary Care Provider Encounter Details Date Type Department Care Team (Late st Contact Info) Description 07/03/2024 Procedure Pass [facility], Ct Scan - [address] [address] Social History Tobacco Use Types Packs/Day Years [...] 3:17 PM EDT Antonia Beaulieu RN * Shiner Suicide Severity Rating Scale (Screener/Recent Self-Report) Question Answer Date of Assessment Author 1. Wish to be (Past 1 Month) No 07/03/2024 3:17 PM EDT Antonia Beaulieu RN 2. Non-Specific Active Suici natasha Thoughts (Past 1 Month) No 07/03/2024 3:17 PM EDT Antonia Beualieu RN 6. Suicidal Behavior (Lifetime) No 3:17 PM EDT Antonia Beaulieu RN documented as of this encounter Plan of Treatment Not on file documented as of this encounter Visit Diagnoses Not on filedocumented in this encounter Care Teams Inspection Supervisor Relationship Specialty Start Date End Date Linda Murphy DO [address] [place] [address] PCP - General Family Medicine 07/03/24 documented as of this encounter Additional Source Comments The information contained in this document represents components of the legal health record. It is not the complete legal health record.[facility]
--- OUTSIDE RECORDS SUMMARY | 2025-09-16 10:52 | XMS_ITS | Encounter Summary ---
Author Organization [facility] Address [address] [place] [address] 7t [place] [address] Care Team Providers Care Director Music Name Role Phone Linda Murphy DO Primary Care Provider [phone] DelNeri zavala PharmD Unavailable Unavail able Antionette Murphy PharmD Unavailable Reason for Referral * Imaging (Routine) - Canceled Specialty Diagnoses / Procedures Referred By Rolf pascual Referred To Contact Radiology Diagnoses Hilar mass Procedures CT Chest w/o Contrast Nora Astudillo FNP [address] [place] [address] Phone: tel: fax: [address] Phone: tel: fax: Referral ID Status Reason Start Date Expiration Date V isits Requested Visits Authorized [id number] Canceled 10/11/2023 10/10/2024 1 1 Encounter Details Date Type Department Care Team (Late st Contact Info) Description 10/11/2023 Orders Only [facility] MED & PEDS [address] [place] [address] Nora Astudillo FNP [address] [place] [address] Hilar mass (Primary Dx) Social History Tobacco [...] as of this encounter Care Teams Director Music Relationship Specialty Start Date End Date Linda Murphy DO [address] [place] [address] PCP - General Family Medicine 11/24/12 Neri Yang PharmD [address] [place] [address] Pharmacist Internal Medicine 11/23/22 10/17/23 Antionette Murphy PharmD [address] [place] [address] Pharmacist Internal Medicine 07/15/24 02/25/25 documented as of this encounter
--- OUTSIDE RECORDS SUMMARY | 2025-09-16 10:52 | XMS_ITS | Encounter Summary ---
Author Organization [employer] Address [address] [facility] 7t [place] [address] Care Team Providers Care Practical Nursing Teacher Name Role Phone Joelle Murphyfer Primary Care Provider [phone] Encounter Details Date Type Department Care Team (Late st Contact Info) Description 09/16/2025 Orders Only GENERIC EXTERNAL DATA [...] the past 12 months, has t he [employer], gas, oil or water company threatened to [...] AUTO DIFFERENTIAL Routine 09/16/2025 9:34 AM EST MAGNESIUM Routine 09/16/2025 9:34 AM EST HEPATIC FUNCTION PANEL Routine 9:34 AM EST COMPREHENSIVE METABOLIC PANEL Routine 09/16/2025 9:34 AM EST GLUCOSE, WHOLE BLOOD Routine 09/16/2025 9:15 AM EST documented in this encounter Results * Magnesium (09/16/2025 9:34 AM EST) Magnesium 1.7 1.6 - 2.6 mg/dL [facility] 09/16/2025 9:34 AM EST 09/16/2025 9:39 AM EST us Generic External Data Provider LAB BLOOD ORDERAB LES Final Result [facility] [address] [place] [address] [phone] * Hepatic Function Panel (09/16/2025 9:34 AM EST) Bilirubin, Direct 0.1 0.0 - 0.5 mg/dL [facility] 09/16/2025 9:34 AM EST 09/16/2025 9:39 AM EST us Generic External Data Provider LAB BLOOD ORDERAB LES Final Result [facility] [address] [place] [address] [phone] * (ABNORMAL) Comprehensive Metabolic Panel (09/16/2025 9:34 AM EST) Sodium 136 135 - 145 mmol/L [facility] Potassium 4.2 3.3 - 5.1 mmol/L [facility] Chloride 97 96 - 108 mmol/L [facility] Carbon Dioxide 31(H) 22 - 29 mmol/L [facility] Anion Gap 12 12 - 20 [facility] Urea Nitrogen (BUN) 9 9 - 16 mg/dL [facility] Creatinine, Serum 1.14 0.5 - 1.4 mg/dL [facility] Creatinine Clr Calc Pharmacy 67.4 [facility] Comment:Provided height and weight: 170.18 cm,94.8 kg.eGFR (calculated from the MDRD study equation) and eCrCl(calculated from the Cockcroft-Gault equation) are based ondifferent parameters and may not yield comparable results.If eCrCl result is absurd, please check patient'sheight/weight. Estimated Glomerular Filt Rate 50 [facility] Comment:Chronic Kidney Disea se: Estimated GFR < 60 mL/min/1.45v8Yafuti Kidney Disease: Estimated GFR < 15 mL/min/1.73m2 Glucose 293(H) 60 - 115 mg/dL [facility] Calcium 9.1 8.4 - 10.2 mg/dL [facility] Bilirubin, Total 0.3 0.0 - 1.0 mg/dL [facility] Aspartate Amino Transferase 23 5 - 31 U/L [facility] Alanine Aminotransferase 28 0 - 31 U/L [facility] Total Protein 8.0 6.5 - 8.0 g/dL [facility] Albumin Level 4.4 3.5 - 5.0 g/dL [facility] Alkaline Phosphatase 124(H) 39 - 117 U/L [facility] 09/16/2025 9:34 AM EST 09/16/2025 9:39 AM EST us Generic External Data Provider LAB BLOOD ORDERAB LES Final Result Performing Organization Address City/State/[facility] Co de Phone Number [facility] [address] [place] [address] [phone] * (ABNORMAL) Urinalysis, Complete, with Reflex to Culture (09/16/2025 9:34 AM EST) Color Urine Yellow [facility] Appearance Urine Cloudy [facility] PH 7.0 5.0 - 9.0 [facility] Glucose Urine UA Negative Negative mg/dL [facility] Urine Blood Negative Negative [facility] Specific [place] - Urine <=1.005 1.005 - 1.025 [facility] Urine Protein Negative Neg-Trace mg/dL [facility] Urine Ketones Negative Negative mg/dL [facility] Nitrite Urine Positive(A) Negative [facility] Leukocyte Esterase Urine Trace(A) Negative [facility] RBC Urine 0-2 0 - 2 /HPF [facility] Urine WBC 6-10(A) 0 - 5 /HPF [facility] Urine Squamous Epithelial Cell 11-20 0 - 2 /HPF [facility] Urine Bacteria 4+ None Seen [facility] Hyaline Casts, Urine 0-2 0 - 2 /LPF [facility] 09/16/2025 9:34 AM EST 09/16/2025 9:39 AM EST Narrative [facility] - 09/16/2025 9:54 AM EST [id number], [employer] us Generic External Data Provider LAB URINE ORDERAB LES Final Result [facility] [address] [place] [address] [phone] * (ABNORMAL) CBC auto differential (09/16/2025 9:34 AM EST) White Blood Count 17.1(H) 4.8 - 10.8 X10*3/uL [facility] Red Blood Count 4.90 4.20 - 5.50 X10*6/uL [facility] Hemoglobin 13.0 12.0 - 16.0 g/dl [facility] Hematocrit 39.9 37.0 - 47.0 % [facility] Mean Corpuscular Volume 81.4 80.0 - 98.0 fL [facility] Mean Corpuscular Hemoglobin 26.5(L) 27.0 - 33.0 pg [facility] Mean Corpuscular HGB Conc 32.6 31.0 - 35.0 g/dl [facility] Red Cell Distribution Width 14.5 11.0 - 16.0 % [facility] Platelet Count 353 160 - 400 X10*3/uL [facility] Mean Platelet Volume 9.6 9.4 - 12.3 fL [facility] Neutrophils Percent Auto 76.2(H) 45 - 73 % [facility] Imm Gran Pct Auto 0.4 0.0 - 0.4 % [facility] Lymphocytes Percent Auto 16.2(L) 20 - 40 % [facility] Monocytes Percent Auto 6.0 2 - 11 % [facility] Eosinophils Percent Auto 0.7 0 - 4 % [facility] Basophils Percent Auto 0.5 0 - 2 % [facility] NRBC Pct Auto 0.1 0.0 - 0.2 /100WBC [facility] Neutrophils Absolute Auto 13.1(H) 2.0 - 8.3 x10*3/uL [facility] Imm Gran Abs Auto 0.07(H) 0.00 - 0.03 X10*3/uL [facility] Lymphocytes Absolute Auto 2.8 1.2 - 4.9 X10*3/uL [facility] Monocytes Absolute Auto 1.0 0.1 - 1.2 X10*3/uL [facility] Eosinophils Absolute Auto 0.1 0.0 - 0.4 X10*3/uL [facility] Basophils Absolute Auto 0.1 0.0 - 0.2 X10*3/uL [facility] NRBC Abs Auto 0.020(H) 0.0 - 0.012 X10*3/uL [facility] 09/16/2025 9:34 AM EST 09/16/2025 9:39 AM EST us Generic External Data Provider LAB BLOOD ORDERAB LES Final Result Performing Organization Address City/[facility]/ZIP Co de Phone Number [facility] [address] [place] [phone] * (ABNORMAL) Glucose, Whole Blood (09/16/2025 9:15 AM EST) Glucose, Whole Blood 333(H) 60 - 115 mg/dL [facility] Comment:METER #: [id number] 09/16/2025 9:15 AM EST 09/16/2025 9:19 AM EST us Generic External Data Provider LAB BLOOD ORDERAB LES Final Result Performing Organization Address [facility] Co de Phone Number [facility] [address] [place] [phone] documented in this encounter Visit Diagnoses Not on filedocumented in this encounter Additional Health Concerns Assessment Noted Time PHQ-9 Depression Total Score: 0 07/20/20 25 11:20 AM EDT documented as of this encounter Care Teams Practical Nursing Teacher Relationship Specialty Start Date End Date Linda Murphy DO [address] [place] [address] PCP - General Family Medicine 11/24/12 documented as of this encounter
--- OUTSIDE RECORDS SUMMARY | 2025-09-16 10:52 | XMS_ITS | Encounter Summary ---
Author Organization [employer] Address [address] [place] [address] 7t [place] [address] Care Team Providers Care Rim Fire Charger Operator Name Role Phone Linda Murphy DO Primary Care Provider Dellogla Neri PharmD Unavailable Unavail able Antionette Murphy PharmD Unavailable Reason for Visit * Reason Comments Med Refill Encounter Details Date Type Department Care Team ([facility] st Contact Info) Description 04/05/2023 Refill [facility] [address] [place] [address] Linda Murphy DO [address] [place] [address] Social History Tobacco Use Types Packs/Day Years [...] documented as of this encounter Care Teams Rim Fire Charger Operator Relationship Specialty Start Date End Date Linda Murphy DO [address] [place] [address] PCP - General Family Medicine 11/24/12 Neri Yang, PharmD [address] [place] [address] Pharmacist Internal Medicine 11/23/22 10/17/23 Antionette Murphy, EricD [address] [place] [address] Pharmacist Internal Medicine 07/15/24 02/25/25 documented as of this encounter
--- OUTSIDE RECORDS SUMMARY | 2025-09-16 10:52 | XMS_ITS | Encounter Summary ---
Author Organization [employer] Address [address] [facility] 7t [place] [address] Care Team Providers Care Devulcanizer Charger Name Role Phone Linda Murphy DO Primary Care Provider [phone] Antionette Murphy PharmD Unavailable [phone] Reason for Visit * Reason Comments Med Refill Encounter Details Date Type Department Care Team ([facility] st Contact Info) Description 07/03/2024 Refill [facility] MEDICINE [address] [place] [address] Linda Murphy DO [address] [place] [address] Tobacco dependence Social History Tobacco Use Types [...] documented as of this encounter Care Teams Devulcanizer Charger Relationship Specialty Start Date End Date Linda Murphy DO [address] [place] [address] PCP - General Family Medicine 11/24/12 Antionette Murphy PharmD [address] [place] [address] Pharmacist Internal Medicine 07/15/24 02/25/25 documented as of this encounter
--- OUTSIDE RECORDS SUMMARY | 2025-09-16 10:53 | XMS_ITS | Encounter Summary ---
Author Organization [employer] Address [address] [facility] 7t [place] [address] Care Team Providers Care Air And Hydronic Balancing Technician Name Role Phone Linda Murphy DO Primary Care Provider [phone] Reason for Visit * Reason Onset Date Comments Error (VOID this visit) 09/15/2025 Encounter Details Date Type Department Care Team ([facility] st Contact Info) Description 09/15/2025 Telephone [facility] MEDICINE [address] [place] [address] Yaima Marquez RN [address] [place] [address] Error (VOID this visit) Social History Tobacco Use Types Packs/Day Years [...] Result Component 8.1(07/20/2025 11:19 AM EDT) No Dellogla, Neri, PharmD documented as of this encounter Visit Diagnoses Not on filedocumented in this encounter Additional Health Concerns Assessment Noted Time PHQ-9 Depression Total Score: 0 07/20/20 25 11:20 AM EDT documented as of this encounter Care Teams Air And Hydronic Balancing Technician Relationship Specialty Start Date End Date Linda Murphy DO [address] [place] [address] PCP - General Family Medicine 11/24/12 documented as of this encounter
--- OUTSIDE RECORDS SUMMARY | 2025-09-16 10:53 | XMS_ITS | Encounter Summary ---
Author Organization [employer] Address [address] [facility] [address] 7[address] [place] [address] Care Team Providers Care County Nurse Name Role Phone Linda Murphy DO Primary Care Provider [phone] Antionette Murphy PharmD Unavailable [phone] Reason for Visit * Reason Onset Date Comments Med Refill 12/18/2024 Encounter Details Date Type Department Care Team (Late st Contact Info) Description 12/18/2024 Refill [facility] MED & PEDS [address] [place] [address] Linda Murphy DO 230 [place] [address] Acute post-traumatic headache, not intractable; Chronic obstructive [...] pulmonary disease, unspecified COPD type (CMS/HCC) (HCC) documented in this encounter Additional Health Concerns Assessment Noted Time PHQ-9 Depression Total Score: 0 02/27/20 23 11:42 AM EDT documented as of this encounter Care Teams County Nurse Relationship Specialty Start Date End Date Linda Murphy DO [address] [place] [address] PCP - General Family Medicine 11/24/12 Antionette Murphy PharmD [address] [place] [address] Pharmacist Internal Medicine 07/15/24 02/25/25 documented as of this encounter
--- OUTSIDE RECORDS SUMMARY | 2025-09-16 10:53 | XMS_ITS | Encounter Summary ---
Author Organization [employer] Address [address] [facility] 7t [place] [address] Care Team Providers Care Retail Operations Specialist Name Role Phone Linda Murphy DO Primary Care Provider [phone] Antionette Murphy PharmD Unavailable [phone] Reason for Visit * Reason Onset Date Comments Med Refill 12/18/2024 Encounter Details Date Type Department Care Team (Late st Contact Info) Description 12/18/[address] [facility] MEDICINE [address] [place] [address] Linda Murphy DO [address] [place] [address] Social History Tobacco Use Types Packs/Day Years [...] as of this encounter Care Teams Retail Operations Specialist Relationship Specialty Start Date End Date Linda Murphy DO [address] [place] [address] PCP - General Family Medicine 11/24/12 Antionette Murphy PharmD [address] [place] [address] Pharmacist Internal Medicine 07/15/24 02/25/25 documented as of this encounter
--- OUTSIDE RECORDS SUMMARY | 2025-09-16 10:53 | XMS_ITS | Clinical Summary ---
Author Organization [address] [facility] Address [address] [place] [address] Phone Care Team Providers Care Elderly Sitter Name Role Phone Joelle Murphyfer Juanito RAMESH Primary Care Provider [phone] Allergies No known active allergies Medications acetaminophen [...] Date Allergic rhinitis 12/22/2024 Bipolar disorder (CMS/[facility] V24, CMS/[facility] V28) 02/1 11/2024 DANIEL (obstructive sleep apnea) 12/22/2024 Hyperlipidemia 12/22/2024 Type 2 diabetes mellitus ([facility] V24, [facility] V 28) 12/22/2024 Fatty liver 12/22/2024 Status post thyroidectomy 12/22/2024 Hx of papillary thyroid carcinoma 12/22/2024 GERD (gastroesophageal reflux disease) Chronic low back pain 12/22/2024 Leukocytosis 12/22/2024 Toenail avulsion 12/22/2024 Plantar callus 12/22/2024 Onychomycosis 12/22/2024 Encounters Date Type Department Care Team Description 08/31/2025 10:15 AM EDT Office Visit Orthopedic Surgery [facility] [address] [phone] Gutierrez Ruiz DPM Controlled type 2 diabetes with neuropathy (CMS/[facility] V24, [facility] V28) (Primary Dx); Metatarsalgia of right foot; [...] 10:15 AM EST Office Visit Orthopedic Surgery [facility] [address] [phone] Gutierrez Ruiz DPM [address] [address] Health Maintenance Due Date Last Done Comments [...] ID:ICO Type:Not on file Address: [address] [place] [address] Care Teams Elderly Sitter Relationship Specialty Start Date End Date Linda Murphy DO [address] [place], [place] PCP - General Internal Medicine 04/09/19
--- OUTSIDE RECORDS SUMMARY | 2025-09-16 10:53 | XMS_ITS | Encounter Summary ---
Author Organization [employer] Address [address] [facility] [address] [place] [address] Care Team Providers Care Brick Veneer Maker Name Role Phone Linda Murphy DO Primary Care Provider [phone] Antionette Murphy PharmD Unavailable [phone] Reason for Visit * Reason Comments Med Refill Encounter Details Date Type Department Care Team (Late st Contact Info) Description 02/11/2025 Refill [facility] & PEDS [address] [place] [address] Linda Murphy DO 230 [place] [address] Chronic low back pain, unspecified back pain [...] documented as of this encounter Care Teams Brick Veneer Maker Relationship Specialty Start Date End Date Linda Murphy DO [address] [place] [address] PCP - General Family Medicine 11/24/12 Antionette Murphy PharmD [address] [place] [address] Pharmacist Internal Medicine 07/15/24 02/25/25 documented as of this encounter
--- OUTSIDE RECORDS SUMMARY | 2025-09-16 10:53 | XMS_ITS | Encounter Summary ---
Author Organization [employer] Address 75 [facility] 7t [place] [address] Care Team Providers Care Manager Cancer Name Role Phone Linda Murphy DO Primary Care Provider [phone] Antionette Murphy PharmD Unavailable [phone] Reason for Visit * Reason Onset Date Comments Durable Medical Equipment 03/06/2024 Encounter Details Date Type Department Care Team ([facility] st Contact Info) Description 03/06/2024 Telephone [facility] MEDICINE [address] [place] [address] Linda Murphy DO [address] [place] [address] Durable Medical Equipment Social History Tobacco Use [...] as of this encounter Care Teams Manager Cancer Relationship Specialty Start Date End Date Linda Murphy DO [address] [place] [address] PCP - General Family Medicine 11/24/12 Antionette Murphy PharmD [address] [place] [address] Pharmacist Internal Medicine 07/15/24 02/25/25 documented as of this encounter
--- NOTE | 2025-09-16 11:17 | PC.NURSE ---
pt reports improvement in symptoms after medications. fluids continue to infuse. plan of care ongoing
[2025-09-16] MEDS: iohexoL 350 MG/ML 100 ML INFUS..BTL IV (11:34)
[2025-09-16 13:41] VITALS: BP 121/60; PULSE 98; RESP 18; TEMP 36.4; O2SAT 99
== END 2025-09-16 13:41 | disposition home or self-care (01) ==
PROVIDERS: Emergency Provider Emergency Medicine; PCP Family Medicine
DX: R11.2 Nausea with vomiting, unspecified (principal); E11.9 Type 2 diabetes mellitus without complications; I10 Essential (primary) hypertension; E78.5 Hyperlipidemia, unspecified; E89.0 Postprocedural hypothyroidism; J44.9 Chronic obstructive pulmonary disease, unspecified; Z85.850 Personal history of malignant neoplasm of thyroid; Z79.899 Other long term (current) drug therapy
CPT/HCPCS: 36415; 71046; 74177; 80053; 81001; 82248; 82947; 83690; 83735; 85025; 87086; 93005; 96361; 96374; 96375; 99284; 99285; J1308; J2405; Q9967

== ENCOUNTER → 2025-09-16 10:23 | Outpatient (BNV) | payer OTHER, SELFPAY | PROVIDERS: Emergency Provider Emergency Medicine; PCP Family Medicine; Visit Provider Radiology Diagnostic Radiology | DX: R16.0 Hepatomegaly, not elsewhere classified (principal); R59.0 Localized enlarged lymph nodes; I31.39 Other pericardial effusion (noninflammatory); M48.061 Spinal stenosis, lumbar region without neurogenic claudication; J90 Pleural effusion, not elsewhere classified | CPT/HCPCS: 71046; 74177 ==

== ENCOUNTER → 2025-09-16 10:31 | Outpatient (BNV) | payer OTHER, SELFPAY | PROVIDERS: Emergency Provider Emergency Medicine; PCP Family Medicine; Visit Provider Internal Medicine Cardiovascular Disease | DX: I45.10 Unspecified right bundle-branch block (principal) | CPT/HCPCS: 93010 ==

== ENCOUNTER 2025-09-21 11:13 | Outpatient (REF) | payer OTHER, SELFPAY ==
--- OUTSIDE RECORDS SUMMARY | 2025-09-20 11:30 | XMS_ITS | Encounter Summary ---
Author Organization [employer] Address [address] [place] [address] [address] [place] [address] Care Team Providers Care Bag Repairer Name Role Phone Linda Murphy DO Primary Care Provider [phone] Reason for Referral * Medications - Closed Specialty Diagnoses / Procedures Referred By Rolf t Referred To Contact Diagnoses Nausea and vomiting, unspecified vomiting type Asuncion Bailey MD [address] [place] [address] Phone: tel: fax: Referral ID Status Reason Start Date Expiration Date Visits Re quested Visits Authorized [id number] Closed 1 1 Encounter Details Date Type Department Care Team (Latest Contact Info) Description 09/20/2025 11:30 AM EST Office Visit [facility] MEDICINE [address] [place] [address] Asuncion Bailey MD [address] [place] [address] [phone] Pyelonephritis (Primary Dx); Nausea and vomiting, unspecified vomiting type; Leukocytosis, unspecified type; Multinodular goiter; Non-small cell cancer of left lung (CMS/HCC) (HCC) Social History Tobacco Use Types Packs/Day Years Used Date Smoking Tobacco: Former Cigarettes Passive Smoke Exposure: Current Smokeless Tobacco: Never Tobacco Cessation:Counseling Given: Not Answered Comments:Went from 2 packs daily to 3 cigarettes daily Pt states she's quit for 6 mo (09/20/25) Alcohol Use Standard Drinks/Week Comments Never 0 [...] Sign Reading Time Taken Comments Blood Pressure 104/58 09/20/2025 11:43 AM EST Pulse 70 09/20/2025 11:43 AM EST Temperature 36.8 C (98.2 F) 09/20/2025 11:43 AM EST Respiratory Rate 20 09/20/2025 11:43 AM EST Oxygen Saturation - - Inhaled Oxygen Concentration - - Weight 98.6 kg (217 lb 6.4 oz) 09/20/2025 11:43 AM EST Height 170.2 cm (5' 7 ) 09/20/2025 11:43 AM EST Body Mass Index 34.05 09/20/2025 11:43 AM EST documented in this encounter Plan of Treatment Scheduled Orders Name Type Priority Associated Diagnoses Orde r Schedule CBC auto differential Lab Routine Pyelonephritis Expected: 09/20/2025 (Approximate), Expires: 09/20/2026 TSH with Reflex to Free T4 Lab Routine Multinodular goiter Expected: 09/20/2025 (Approximate), Expires: 09/20/2026 Amylase Lab Routine Nausea and vomiting, unspecified vomiting type Expected: 09/20/2025 (Approximate), Expires: 09/20/2026 Lipase Lab Routine Nausea and vomiting, unspecified vomiting type Expected: 09/20/2025, Expires: 09/20/2026 Alkaline phosphatase, isoenzymes Lab Routine Nausea and vomiting, unspecified vomiting type Expected: 09/20/2025 (Approximate), Expires: 09/20/2026 XR Chest 2 Views Imaging Routine Non-small cell cancer of left lung (CMS/HCC) (HCC) Expected: 10/04/2025, Expires: 09/20/2026 Culture, Urine, Routine Microbiology Routine Pyelonephritis Expected: 09/20/2025 (Approximate), Expires: 09/20/2026 documented as of this encounter Goals Goal Patient Goal Type Associated Problems Recent Progress Patient-Stated? Author Hemoglobin A1c < 7 Result Component 8.1(07/20/2025 11:19 AM EDT) No Dellogono, Neri, PharmD documented as of this encounter Procedures Procedure Name Priority Date/Time Associated Diagnosis Comments POCT URINALYSIS DIPSTICK Routine 09/20/2025 12:00 PM EST Pyelonephritis documented in this encounter Results * POCT Urinalysis (09/20/2025 12:00 PM EST) Color, UA Yellow Clarity, UA Clear Glucose, UA Negative Bilirubin, UA Negative Ketones, UA Negative Spec Grav, UA 1.020 Blood, UA Negative Negative, None Detected pH, UA 7.0 Protein, UA Negative Urobilinogen, UA 0.2 Leukocytes, UA Negative Negative, Rare, Trace Nitrite, UA Negative Negative, None Detected Appearance, UA clear QC Media Lot # [id number] Lot# Expiration Date [id number] Urine (Urine, Random) 09/20/2025 12:00 PM EST Asuncion Bailey MD POINT OF CARE TEST ENTER /EDIT ORDERABLES Final Result documented in this encounter Visit Diagnoses Diagnosis Pyelonephritis- Primary Unspecified pyelonephritis Nausea and vomiting, unspecified vomiting type Leukocytosis, unspecified type Multinodular goiter Nontoxic multinodular goiter Non-small cell cancer of left lung (CMS/HCC) (HCC) documented in this encounter Administered Medications Inactive Administered Medications - up to 3 most recent administrations Medication Order MAR Action Action Date Dose Rate Site ondansetron ODT (Zofran-ODT) disintegrating tablet 4 mg 4 mg, Oral, Once, On 09/20/25 at 1230, For 1 doseIndications:Nausea and vomiting, unspecified vomiting type Given 09/20/2025 12:30 PM EST 4 mg documented in this encounter Additional Health Concerns Assessment Noted Time PHQ-9 Depression Total Score: 0 07/20/20 11:20 AM EDT documented as of this encounter Care Teams Bag Repairer Relationship Specialty Start Date End Date Linda Murphy DO [address] [place] [address] PCP - General Family Medicine 11/24/12 documented as of this encounter
--- OUTSIDE RECORDS SUMMARY | 2025-09-21 13:22 | XMS_ITS | Clinical Summary ---
Author Organization [facility] Address [address] [address] Phone Care Team Providers Care Management Professor Name Role Phone Linda Murphy DO Primary Care Provider [phone] Allergies Active Allergy Reactions Criticality Noted Date [...] patient's age to complete this topic IPV VACCINES Aged Out No longer eligi ble based on patient's age to complete this topic MENINGOCOCCAL VACCINES (ACWY) Aged Out No longer eligible based on patient's age to complete this topic MENINGOCOCCAL VACCINES (B) Aged Out N o longer eligible based on patient's age to complete this topic Medical Devices Not on file Insurance [facility] MEDICARE PART A & B [facility] ONE CARE MEDICARE REPLACEMENT [place] MED[place]ARE PART A & B [facility] ONE CARE MEDICARE REPLACEMENT [place] MEDICARE PART A & B [facility] ONE [facility] RE[facility] MEDICARE PART A & B [facility] ONE CARE MEDICARE [place] [address] [place] [address] MEDICARE PART A & B [facility] ONE CARE MEDICARE REPLACEMENT [facility] MEDICARE PART A & B [facility] ONE CARE MEDICARE REPLACEMENT Care Teams Management Professor Relationship Specialty Start Date End Date Linda Murphy DO [address] [place] [id number] PCP - General Family Medicine 07/03/24 Additional Source Comments The information contained in this document represents components of the legal health record. It is not the complete legal health record.[facility]
--- OUTSIDE RECORDS SUMMARY | 2025-09-21 13:22 | XMS_ITS | Encounter Summary ---
Author Organization [employer] Address [address] [facility] 7t [place] [address] Care Team Providers Care Structural Architect Name Role Phone Linda Murphy DO Primary Care Provider [phone] Antionette Murphy PharmD Unavailable [phone] Reason for Visit * Reason Comments Med Refill Encounter Details Date Type Department Care Team ([facility] st Contact Info) Description 07/03/2024 Refill [facility] MEDICINE [address] [place] [address] Linda Murphy DO [address] [place] [address] Tobacco dependence Social History Tobacco Use Types [...] documented as of this encounter Care Teams Structural Architect Relationship Specialty Start Date End Date Linda Murphy DO [address] [place] [address] PCP - General Family Medicine 11/24/12 Antionette Murphy PharmD [address] [place] [address] Pharmacist Internal Medicine 07/15/24 02/25/25 documented as of this encounter
--- OUTSIDE RECORDS SUMMARY | 2025-09-21 13:22 | XMS_ITS | Encounter Summary ---
Author Organization [facility] Address [address] [facility] [address] [place] [phone] Phone Care Team Providers Care Reporter Name Role Phone Linda Murphy DO Primary Care Provider Encounter Details Date Type Department Care Team (Late st Contact Info) Description 07/03/2024 Procedure Pass [facility], Ct Scan - [address] [address] Social History Tobacco Use Types Packs/Day Years [...] 3:17 PM EDT Antonia Beaulieu RN * [place] Suicide Severity Rating Scale (Screener/Recent Self-Report) Question [...] on filedocumented in this encounter Care Teams Reporter Relationship Specialty Start Date End Date Linda Murphy DO [address] [place] [address] PCP - General Family Medicine 07/03/24 documented as of this encounter Additional Source Comments The information contained in this document represents components of the legal health record. It is not the complete legal health record.[facility]
--- OUTSIDE RECORDS SUMMARY | 2025-09-21 13:22 | XMS_ITS | Encounter Summary ---
Author Organization [employer] Address [address] [facility] 7t [place] [address] Care Team Providers Care Template Layout Worker Name Role Phone Linda Murphy DO Primary Care Provider DelNeri zavala PharmD Unavailable Unavail able Antionette Murphy PharmD Unavailable [phone] Reason for Visit * Reason Onset Date Comments Letter for School/Work 03/07/2023 Encounter Details Date Type Department Care Team ([facility] st Contact Info) Description 03/07/2023 Telephone [facility] MEDICINE [address] [place] [address] Linda Murphy DO [address] [place] [address] Letter for School/Work Social History Tobacco Use [...] mailed due to COVID Please contact at [phone] documented in this encounter Plan of Treatment [...] documented as of this encounter Care Teams Template Layout Worker Relationship Specialty Start Date End Date Linda Murphy DO [address] [place] [address] PCP - General Family Medicine 11/24/12 Neri Ynag, PharmD [address] [place] [address] Pharmacist Internal Medicine 11/23/22 10/17/23 Antionette Murphy PharmD [address] [place] [address] Pharmacist Internal Medicine 07/15/24 02/25/25 documented as of this encounter
--- OUTSIDE RECORDS SUMMARY | 2025-09-21 13:22 | XMS_ITS | Encounter Summary ---
Author Organization [employer] Address [address] [place] [address] 7t [place] [address] Care Team Providers Care Flying I Instructor Name Role Phone Linda Murphy DO Primary Care Provider Dellogla Neri PharmD Unavailable Unavail able Antionette Murphy PharmD Unavailable Reason for Visit * Reason Comments Med Refill Encounter Details Date Type Department Care Team ([facility] st Contact Info) Description 04/05/[address] [facility]EDIATR[facility] [address] [place] [address] Linda Murphy DO [address] [place] [address] Social History Tobacco Use Types Packs/Day Years [...] documented as of this encounter Care Teams Flying I Instructor Relationship Specialty Start Date End Date Linda Murphy DO [address] [place] [address] PCP - General Family Medicine 11/24/12 Neri Yang, PharmD [address] [place] [address] Pharmacist Internal Medicine 11/23/22 10/17/23 Antionette Murphy, EricD [address] [place] [address] Pharmacist Internal Medicine 07/15/24 02/25/25 documented as of this encounter
--- OUTSIDE RECORDS SUMMARY | 2025-09-21 13:22 | XMS_ITS | Encounter Summary ---
Author Organization [employer] Address [address] [facility] 7t [place] [address] Care Team Providers Care Automotive Vehicle Inspector Name Role Phone Linda Murphy DO Primary Care Provider [phone] Dellogla Neri PharmD Unavailable Unavail able Antionette Murphy PharmD Unavailable Reason for Visit * Reason Comments Med Refill Encounter Details Date Type Department Care Team (Late st Contact Info) Description 04/10/2023 Refill [facility] [address] [place] [address] Linda Murphy DO [address] [facility] [place] [address] Social History Tobacco Use Types Packs/Day Years [...] documented as of this encounter Care Teams Automotive Vehicle Inspector Relationship Specialty Start Date End Date Linda Murphy DO [address] [place] [address] PCP - General Family Medicine 11/24/12 Neri Yang, PharmD [address] [place] [address] Pharmacist Internal Medicine 11/23/22 10/17/23 Antionette Murphy PharmD [address] [place] [address] Pharmacist Internal Medicine 07/15/24 02/25/25 documented as of this encounter
--- OUTSIDE RECORDS SUMMARY | 2025-09-21 13:23 | XMS_ITS | Encounter Summary ---
Author Organization [employer] Address [address] [place] [address] 7t [place] [address] Care Team Providers Care Flight Technician Name Role Phone Linda Murphy DO Primary Care Provider [phone] DelNeri zavala PharmD Unavailable Unavail able Antionette Murphy PharmD Unavailable [phone] Reason for Referral * Imaging (Routine) - Canceled Specialty Diagnoses / Procedures Referred By Rolf pascual Referred To Contact Radiology Diagnoses Hilar mass Procedures CT Chest w/o Contrast Nora Astudillo FNP [address] [place] [address] Phone: tel: fax: [address] Phone: tel: fax: Referral ID Status Reason Start Date Expiration Date V isits Requested Visits Authorized [id number] Canceled 10/11/2023 10/10/2024 1 1 Encounter Details Date Type Department Care Team (Late st Contact Info) Description 10/11/2023 Orders Only [facility] [address] [place] [address] Nora Astudillo FNP [address] [place] [address] Hilar mass (Primary Dx) Social History Tobacco [...] documented as of this encounter Care Teams Flight Technician Relationship Specialty Start Date End Date Linda Murphy DO [address] [place] [address] PCP - General Family Medicine 11/24/12 Neri Yang PharmD [address] [place] [address] Pharmacist Internal Medicine 11/23/22 10/17/23 Antionette Murphy PharmD [address] [place] [address] Pharmacist Internal Medicine 07/15/24 02/25/25 documented as of this encounter
--- OUTSIDE RECORDS SUMMARY | 2025-09-21 13:23 | XMS_ITS | Encounter Summary ---
Author Organization [employer] Address [address] [facility] 7t [place] [address] Care Team Providers Care Dynamometer Tuner Name Role Phone Linda Murphy DO Primary Care Provider [phone] Antionette Murphy PharmD Unavailable [phone] Reason for Visit * Reason Onset Date Comments Durable Medical Equipment 03/06/2024 Encounter Details Date Type Department Care Team ([facility] st Contact Info) Description 03/06/2024 Telephone [facility] MEDICINE [address] [place] [address] Linda Murphy DO [address] [place] [address] Durable Medical Equipment Social History Tobacco Use [...] documented as of this encounter Care Teams Dynamometer Tuner Relationship Specialty Start Date End Date Linda Murphy DO [address] [place] [address] PCP - General Family Medicine 11/24/12 Antionette Murphy PharmD [address] [place] [address] Pharmacist Internal Medicine 07/15/24 02/25/25 documented as of this encounter
--- OUTSIDE RECORDS SUMMARY | 2025-09-21 13:23 | XMS_ITS | Encounter Summary ---
Author Organization [employer] Address 75 [facility] 7t [place] [address] Care Team Providers Care Secondary Spanish Teacher Name Role Phone Linda Murphy DO Primary Care Provider DellogNeri tovar PharmD Unavailable Unavail able Antionette Murphy PharmD Unavailable [phone] Reason for Visit * Reason Onset Date Comments triage 11/14/2022 Encounter Details Date Type Department Care Team (Late st Contact Info) Description 11/14/2022 Telephone [facility] MEDICINE [address] [place] [address] Linda Murphy DO [address] [place], [place] [phone] triage Social History Tobacco Use Types Packs/Day [...] EST Triage call Pt reports seen in [facility] ED today. Pt reports [...] on filedocumented in this encounter Care Teams Secondary Spanish Teacher Relationship Specialty Start Date End Date Linda Murphy DO [address] [place] [address] PCP - General Family Medicine 11/24/12 Neri Yang PharmD [address] [place] [address] Pharmacist Internal Medicine 11/23/22 10/17/23 Antionette Murphy PharmD [address] [place] [address] Pharmacist Internal Medicine 07/15/24 02/25/25 documented as of this encounter
--- OUTSIDE RECORDS SUMMARY | 2025-09-21 13:23 | XMS_ITS | Encounter Summary ---
Author Organization [employer] Address [address] [facility] 7t [place] [address] Care Team Providers Care Drapery Cutter Name Role Phone Linda Murphy DO Primary Care Provider [phone] Antionette Murphy PharmD Unavailable [phone] Reason for Visit * Reason Onset Date Comments Med Refill 12/18/2024 Encounter Details Date Type Department Care Team (Late st Contact Info) Description 12/18/[address] [facility] MEDICINE [address] [place] [address] Linda Murphy DO [address] [place] [address] Social History Tobacco Use Types Packs/Day Years [...] as of this encounter Care Teams Drapery Cutter Relationship Specialty Start Date End Date Linda Murphy DO [address] [place] [address] PCP - General Family Medicine 11/24/12 Antionette Murphy PharmD [address] [place] [address] Pharmacist Internal Medicine 07/15/24 02/25/25 documented as of this encounter
--- OUTSIDE RECORDS SUMMARY | 2025-09-21 13:23 | XMS_ITS | Encounter Summary ---
Author Organization [employer] Address [address] [facility] [address] 7t [place] [address] Care Team Providers Care Powerhouse Operator Name Role Phone Linda Murphy DO Primary Care Provider [phone] Encounter Details Date Type Department Care Team ([facility] Contact Info) Description 08/11/2025 Orders Only [facility] MEDICINE [address] [place] [address] Linda Murphy DO [address] [place] [address] Social History Tobacco Use Types Packs/Day Years [...] documented as of this encounter Care Teams Powerhouse Operator Relationship Specialty Start Date End Date Linda Murphy DO [address] [place] [address] PCP - General Family Medicine 11/24/12 documented as of this encounter
--- OUTSIDE RECORDS SUMMARY | 2025-09-21 13:23 | XMS_ITS | Clinical Summary ---
Author Organization [employer] Address [address] [facility] [address] [place] [address] Care Team Providers Care Snowmaker Name Role Phone Linda Murphy DO Primary Care Provider Allergies Active Allergy Reactions Criticality Noted Date Comments Oxycodone Abdominal Pain High 05/04/2013 Other reaction(s): Stomach Pain Other [...] TAKE 2mLs (400mcg) BY MOUTH ONCE DAILY 023 Active naloxone (Narcan) 4 mg/0.1 mL nasal spray Administer 1 spray (4 mg) into affected nostril(s) if needed for opioid reversal. 2 each 3 024 Active ipratropium-albut kellen (Duo-Neb) 0.5-2.5 mg/3 mL nebulizer solutionIndicatio ns:Chronic obstructive pulmonary disease, unspecified COPD type (CMS/HCC) (FORMERLY [facility]) INHALE 1 AMPULE USING A NEBULIZER FOUR TIMES DAILY NEEDED FOR ASTHMA OR (for COPD) 180 mL 2 024 Active hydrOXYzine pamoate (Vistaril) 50 MG capsule TAKE 1 CAPSULE BY MOUTH THREE TIMES DAILY NEEDED FOR ANXIETY Active loratadine (Claritin) 10 MG tablet TAKE 1 TABLET BY MOUTH EVERY MORNING 30 tablet 11 024 Active tiotropium (Spiriva HandiHaler) 18 MCG inhalation capsuleIndication s:Chronic obstructive pulmonary disease, unspecified COPD type (CMS/HCC) (FORMERLY [facility]) USE 1 CAPSULE FOR INHALATION ONCE A DAY DO NOT SWALLOW CAPSULE 30 capsule 025 Active Mometasone Furoate (Asmanex HFA) 100 MCG/ACT aerosol Inhale 2 Act (200 mcg) 2 times daily. 13 g 025 Active Ascorbic Acid (vitamin C) 250 MG tablet TAKE 1 TABLET BY MOUTH TWICE DAILY AT NOON AND IN THE EVENING WITH IRON 180 tablet 025 Active pantoprazole (ProtoNix) 20 MG EC tabletIndications :Chronic GERD TAKE 1 TABLET BY MOUTH TWICE DAILY AT NOON AND IN THE EVENING 180 tablet 025 Active lisinopril 2.5 MG tablet TAKE 1 TABLET BY MOUTH EVERYDAY AT NOON 90 tablet 025 Active methocarbamol (Robaxin) 500 MG tablet Take 1 tablet by mouth every 6 (six) hours during the day. 024 Active Vit-Fe Fumarate-FA ( Vitamins) 28-0.8 MG tablet TAKE 1 TABLET BY MOUTH EVERYDAY AT NOON 90 tablet 025 Active atorvastatin (Lipitor) 40 MG tablet TAKE 1 TABLET BY MOUTH AT BEDTIME 30 tablet 5 025 Active glipiZIDE (Glucotrol) 5 MG tablet TAKE 2 TABLETS BY MOUTH TWICE DAILY IN THE MORNING AND EVENING BEFORE MEALS 120 tablet 025 Active semaglutide (Rybelsus) 7 MG tabletIndications :Type 2 diabetes mellitus without complications ([facility]) TAKE 1 TABLET BY MOUTH EVERY MORNING 30 MINUTES BEFORE A MEAL 30 tablet 025 Active montelukast (Singulair) 10 MG tablet TAKE 1 TABLET BY MOUTH EVERY EVENING 90 tablet 3 025 Active lidocaine (Lidoderm) 5 % patchIndications: Right thigh pain Apply 1 patch topically if needed each day for mild pain. Remove & discard patch within 12 hours or as directed by MD. 30 patch 3 Active Ventolin HFA 108 (90 Base) MCG/ACT inhalerIndication s:Chronic obstructive pulmonary disease, unspecified COPD type (CMS/HCC) (HCC) INHALE 2 PUFFS BY MOUTH EVERY 4 HOURS NEEDED FOR WHEEZING OR SHORTNESS OF BREATH 18 g 2 025 Active baclofen (Lioresal) 10 MG tablet Take 1 tablet (10 mg) by mouth if needed in the morning, at noon, and at bedtime for muscle spasms. 60 tablet 3 025 2025 Active Diclofenac Sodium 1 % gel Apply 2 g topically if needed in the morning, at noon, in the evening, and at bedtime (pain). 150 g 3 Active acetaminophen (Tylenol 8 Hour) 650 MG ER tabletIndications :Acute post-traumatic headache, not intractable TAKE 1 TABLET BY MOUTH EVERY 8 HOURS NEEDED FOR PAIN OR FEVER 60 tablet 3 025 Active Aspirin Low Dose 81 MG EC tabletIndications :Type 2 diabetes mellitus with other specified complication, unspecified whether continuous churn buttermaker insulin use ([facility]) TAKE 1 TABLET BY MOUTH AT BEDTIME 90 tablet 1 025 Active gabapentin (Neurontin) 600 MG tablet TAKE 1 TABLET BY MOUTH THREE TIMES DAILY 90 tablet 3 025 Active Alcohol Swabs (Alcohol Prep) 70 % padsIndications:T ype 2 diabetes mellitus without complication, without long-term current use of insulin ([facility]) USE EVERY DAY UP TO TWICE DAILY 100 each Active TRUEplus Lancets 33G miscIndications:T ype 2 diabetes mellitus without complication, without long-term current use of insulin ([facility]) USE TO TEST BLOOD SUGAR UP TO TWICE DAILY 100 each Active glucose blood (FREESTYLE LITE) test stripIndications: Type 2 diabetes mellitus without complication, without long-term current use of insulin ([facility]) USE TO TEST BLOOD SUGAR UP TO TWICE DAILY 100 strip 11 Active ferrous sulfate 325 (65 Fe) MG EC tablet TAKE 1 TABLET BY MOUTH EVERY DAY. DO NOT BREAK, CRUSH, DISSOLVE OR CHEW 30 tablet 11 Active metFORMIN XR (Glucophage-XR) 500 MG 24 hr tabletIndications :Type 2 diabetes mellitus without complication, without long-term current use of insulin (HCC) Take 2 tablets (1,000 mg) by mouth with breakfast and with evening meal. Do not crush, chew, or split. 360 tablet 1 Active Blood Glucose Monitoring Suppl (FreeStyle Lite) deviceIndications :Type 2 diabetes mellitus without complication, without long-term current use of insulin ([facility]) Inject 1 each under the skin 2 times daily. Use to test blood sugar twice daily, as directed 1 each Active phenazopyridine (Pyridium) 100 MG tablet Take 1 tablet (100 mg) by mouth if needed in the morning, at noon, and at bedtime for bladder spasms for up to 3 days. 10 tablet 025 2024 Active ondansetron ODT (Zofran-ODT) 4 MG disintegrating tabletIndications :Nausea and vomiting, unspecified vomiting type Take 1 tablet (4 mg) by mouth every 8 (eight) hours if needed for nausea or vomiting for up to 7 days. 20 tablet 025 2024 Active Blood Glucose Monitoring Suppl (FreeStyle Lite) deviceIndications :Type 2 diabetes mellitus without complication, without long-term current use of insulin (HCC) Inject 1 each under the skin 2 times daily. Use to test blood sugar twice daily, as directed 1 each 024 2024 Discontinued(R eorder (will not trigger notification to Pharmacy)) Alcohol Swabs (Alcohol Prep) 70 % padsIndications:T ype 2 diabetes mellitus without complication, without long-term current use of insulin (HCC) USE EVERY DAY UP TO TWICE DAILY 100 each 11 024 2024 Discontinued glucose blood (FREESTYLE LITE) test stripIndications: Type 2 diabetes mellitus without complication, without long-term current use of insulin (HCC) Use to check blood sugar up to twice daily 100 each 11 024 2024 Discontinued TRUEplus Lancets 33G miscIndications:T ype 2 diabetes mellitus without complication, without long-term current use of insulin (HCC) Use to check blood sugar up to twice daily 100 each 11 024 2024 Discontinued metFORMIN XR (Glucophage-XR) 500 MG 24 hr tabletIndications :Type 2 diabetes mellitus without complication, without long-term current use of insulin (HCC) TAKE 2 TABLETS BY MOUTH TWICE DAILY AT NOON AND IN THE EVENING 360 tablet 1 025 2024 Discontinued(R eorder (will not trigger notification to Pharmacy)) ferrous sulfate 325 (65 Fe) MG EC tablet TAKE 1 TABLET BY MOUTH EVERY DAY DO NOT BREAK, CRUSH, DISSOLVE OR CHEW 30 tablet 025 2024 Discontinued Hospital, Clinic, or Other Facility Administered Medication Ordered Dose Route Frequency Start Date End Date Status ondansetron ODT (Zofran-ODT) disintegrating tablet 4 mgIndications:Nausea and vomiting, unspecified vomiting type 4 mg PO Once 09/20/2025 09/20/2025 Ended Active Problems Problem Noted Date Diagnosed Date Nausea and vomiting 09/20/2025 Pyelonephritis 09/20/2025 Long-term current use of opiate analgesic 2024 [...] -f/u with pain mgmt prn -advised contact [facility] if sx change or worsen [...] daily -cont regular BS monitoring -re-referred to [facility] pharmacist for eval -cont statin and [...] left lung 02/11/2025 04/21/2025 Post-menopause bleeding 02/11/2025 06/11/2024 Sacroiliitis 02/11/2025 03/29/2025 Vomiting 02/11/2025 03/29/2025 Weakness [...] instrumentation of the toenail - refer to statistical programmer analyst - TB UTD Plantar callus 08/26/2024 01/27/2025 [...] Encounters Date Type Department Care Team Description 09/20/2025 11:30 AM EST Office Visit [address] [address] Asuncion Bailey MD Pyelonephritis (Primary Dx); Nausea and vomiting, unspecified vomiting type; Leukocytosis, unspecified type; Multinodular goiter; Non-small cell cancer of left lung (CMS/HCC) (HCC) 09/20/2025 Travel 09/17/[address] [address] Linda Murphy DO Prior Authorization ([facility] PA: Asmanex HFA 100 MCG) 09/17/[address] [place] [address] Linda Murphy DO Prior Authorization ([facility] PA: Anegla NixiHaler) 09/16/2025 Orders Only GENERIC EXTERNAL DATA DEPARTMENT Provider, Generic External Data 09/15/2025 Telephone [facility] [address] [place] [address] Yaima Marquez RN Error (VOID this visit) 09/15/2025 Orders Only GENERIC EXTERNAL DATA DEPARTMENT Provider, Generic External Data 09/02/[address] [facility] [address] [place] [address] Linda Murphy, Type 2 diabetes mellitus without complication, without long-term current use of insulin (HCC) 08/30/[address] [address] Linda Murphy DO Type 2 diabetes mellitus without complication, without long-term current use of insulin ([facility]) 08/18/[address] [address] No Lopez RN NCNS CONSTRUCTION ADMINISTRATIVE ASSISTANT RV today; Pt does not want to take Tramadol anymore 08/11/[address] [facility] [address] [place] [phone] Linda Murphy, 08/09/[address] [facility] [address] [place] [phone] Linda Murphy, 08/06/[address] [facility] [address] [place] [phone] Linda Murphy, 08/04/[address] [facility] [address] [place], [place] [phone] Linda Murphy DO Type 2 diabetes mellitus with other specified complication, unspecified whether continuous churn buttermaker insulin use ([facility]/HCC) 08/03/[address] [facility] [address] [place] [phone] No Lopez RN cancelled chronic group and CONSTRUCTION ADMINISTRATIVE ASSISTANT appts multiple times 07/29/[address] [facility] [address] [place] [phone] Linda Murphy DO telephone call; Reschedule CONSTRUCTION ADMINISTRATIVE ASSISTANT/Chronic pain group; Blood Sugar Problem 07/28/[address] [address] No Lopez RN NCNS CONSTRUCTION ADMINISTRATIVE ASSISTANT RV today 07/27/[address] [facility] [address] [place] [address] Linda Murphy DO Acute post-traumatic headache, not intractable 07/20/2025 11:15 AM EDT Office Visit [address] [address] Linda Murphy DO Type 2 diabetes mellitus without complication, without long-term current use of insulin ([facility]/HCC) (Primary Dx); Other hyperlipidemia; Fatty liver; Chronic [...] neoplasm of breast 07/20/2025 Travel 07/19/[address] [facility] [address] [place] [address] Linda Murphy DO Chronic bilateral low back pain without sciatica 07/16/[address] [facility] [address] [place] [phone] Linda Murphy DO Chart Prep 07/15/[address] [facility] [address] [place] [phone] Linda Murphy DO 07/14/[address] [facility] [address] [place] [address] Linda Murphy DO Chronic bilateral low back pain without sciatica 07/01/[address] [place] [address] Linda Murphy DO Appointment Request 07/01/2025 Travel 06/27/[address] [facility] [address] [place] [address] Josseline Solis MD Chronic obstructive pulmonary disease, unspecified COPD type (CMS/HCC) 06/22/[address] [facility] [address] [place], [place] [phone] Linda Murphy DO Chronic bilateral low back pain without sciatica 06/21/2025 9:30 AM EDT Clinical Support [address] [address] No Lopez RN Long-term current use of opiate analgesic (Primary Dx) 06/21/[address] [address] No Lopez, KRYSTYNA CONSTRUCTION ADMINISTRATIVE ASSISTANT Agreement renewed today 06/21/2025 Travel from Last [...] 20 09/20/2025 11:43 AM EST Oxygen Saturation 96% 07/20/2025 11:14 AM EDT Inhaled Oxygen Concentration - - Weight 98.6 kg (217 lb 6.4 oz) 09/20/2025 11:43 AM EST Height 170.2 cm (5' 7 ) 09/20/2025 11:43 AM EST Body Mass Index 34.05 09/20/2025 11:43 AM EST Plan of Treatment Health Maintenance Due Date [...] Additional history exists Lipid Panel 04/26/2026 04/26/2025, 04/12/2024, 08/13/2024, Additional history exists Depression Screening 07/20/2026 07/20/2025, 07/20/20 25 Tobacco Screening 09/20/2026 09/20/2025 HPV/Cotest 05/21/2027 05/21/2022, 05/11, 02/15/2022 DTaP/Tdap/Td Vaccines [...] 11:19 AM EDT) No Neri Yang, [place] Procedures Procedure Name Priority Date/Time Associated Diagnosis Comments POCT URINALYSIS DIPSTICK Routine 09/20/2025 12:00 PM EST Pyelonephritis XR CHEST 2 VIEWS Routine 09/16/2025 1:[address] ABDOMEN PELVIS W CONTRAST Routine 09/16/2025 11:32 AM EST MAGNESIUM Routine 09/16/2025 9:34 AM EST HEPATIC FUNCTION PANEL Routine 09/16/2025 9:34 AM EST COMPREHENSIVE METABOLIC PANEL Routine 09/16/2025 9:34 AM EST URINALYSIS, COMPLETE, WITH REFLEX TO CULTURE Routine 09/16/2025 9:34 AM EST CBC WITH AUTO DIFFERENTIAL Routine 09/16/2025 9:34 AM EST GLUCOSE, WHOLE BLOOD Routine 09/16/2025 9:15 AM EST CULTURE, URINE, ROUTINE Routine 09/16/2025 12:00 AM EST THYROGLOBULIN, TUMOR MARKER W/REFLEX Routine 09/15/2025 11:17 AM EST THYROGLOBULIN ANTIBODIES Routine 09/15/2025 11:17 AM EST THYROGLOBULIN, LC/MS/MS Routine 09/15/2025 11:17 AM EST TSH Routine 09/15/2025 11:17 AM [...] use of insulin (CMS/HCC) Right thigh pain LIPID PANEL, STANDARD Routine 04/26/2025 11:11 AM EDT Type 2 diabetes mellitus without complication, without long-term current use of insulin (CMS/HCC) Right thigh pain AMB REFERRAL TO PODIATRY Routine 03/04/2025 Toenail avulsion, initial encounter Plantar callus Onychomycosis of multiple toenails with type 2 diabetes mellitus (CMS/HCC) (CMS/HCC) ZZZ HISTORICAL HPV E6/E7 RFLX LUIS 16 18/45 Routine 05/21/2022 3:45 PM EDT PAP SMEAR Routine 02/15/2022 12:00 AM EDT BI MAMMOGRAM SCREENING BILATERAL Routine 04/01/2019 2:56 PM EDT from Last 3 Months or Most Recently Relevant to Health Maintenance Results * POCT Urinalysis (09/20/2025 12:00 PM [...] Media Lot # [id number] Lot# Expiration Date 6,026 Urine (Urine, Random) 09/20/2025 12:00 PM EST Asuncion Bailey MD POINT OF CARE TEST ENTER /EDIT ORDERABLES Final Result * XR Chest 2 Views (09/16/2025 1:00 PM EST) Anatomical Region Laterality Modality Chest Radiographic Rosaura ging 09/16/2025 1:00 PM EST Narrative 09/16/2025 1:19 PM EST [place] [address] XRay Report Signed Patient: Tisha Ruiz MR#: [id number] 61 : 1970 Acct:[id number] Age/Sex: 55 / F ADM Date: 09/16/25 Loc: .ED Attending Dr: Ordering Physician: Teo Mazariegos DO Date of Service: 09/16/25 Procedure(s): XR chest 2V Accession Number(s): [id number] cc: Linda Murphy DO; Teo Mazariegos DO Reason for Exam: weakness EXAMINATION: XR CHEST CLINICAL INFORMATION: weakness COMPARISON: February 17, 2025 TECHNIQUE: PA and lateral views. FINDINGS: There is a horizontally oriented opacity in the left lower hemithorax with blunting of the costophrenic angle. Pulmonary reticular pattern. No pneumothorax. Cardiomediastinal silhouette size is normal. Multilevel spondylosis, thoracolumbar spine. Degenerative changes in the acromioclavicular joints. Patient's large body habitus. XR/XR chest 2V IMPRESSION: Left-sided pleural effusion, moderate volume. Underlying airspace disease versus malignancy cannot be excluded. Electronically signed by: Franki Fulton MD 09/16/2025 01:16 PM EST RP Dictated By: Franki Dubon MD Signed By: <Electronically signed by Franki Nixon MD in [place]> 09/16/25 1316 DD/ 1300 TD/TT: 09/16/25 1312 Nut Culler: Procedure Note Donotuseinterpreter, Image - 09/16/[address] [address] XRay Report Signed Patient: Ayanna RuiznMR#: [id number] 61 : 1970Acct:[id number] Age/Sex: 55 / FADM Date: 09/16/25 Loc: .ED Attending Dr: Ordering Physician: Teo Mazariegos DO Date of Service: 09/16/25 Procedure(s): XR chest 2V Accession Number(s): [id number] cc: Linda Murphy DO; Teo Mazariegos DO Reason for Exam: weakness EXAMINATION: XR CHEST CLINICAL INFORMATION: weakness COMPARISON: February 17, 2025 TECHNIQUE: PA and lateral views. FINDINGS: There is a horizontally oriented opacity in the left lower hemithorax with blunting of the costophrenic angle. Pulmonary reticular pattern. No pneumothorax. Cardiomediastinal silhouette size is normal. Multilevel spondylosis, thoracolumbar spine. Degenerative changes in the acromioclavicular joints. Patient's large body habitus. XR/XR chest 2V IMPRESSION: Left-sided pleural effusion, moderate volume. Underlying airspace disease versus malignancy cannot be excluded. Electronically signed by: Franki Fulton MD 09/16/2025 01:16 PM EST RP Dictated By: Franki Dubon MD Signed By: <Electronically signed by Franki Nixon MDin OV> 09/16/25 1316 DD/ 1300 TD/TT: 09/16/25 1312 Nut Culler: us [facility] External Provider IMG XR PROCEDURES Final Result * CT Abdomen Pelvis w/ Contrast (09/16/2025 11:32 AM EST) Anatomical Region Laterality Modality Body, Pelvis, Abdomen Computed T omography 09/16/2025 11:3 2 AM EST Narrative 09/16/2025 12:00 PM EST [address] [address] [address] Scan Report Signed Patient: Tisha Ruiz MR#: [id number] [birth year] : 1970 Acct:[id number] Age/Sex: 55 / F ADM Date: 09/16/25 Loc: HO.ED Attending Dr: Ordering Physician: Teo Mazariegos DO Date of Service: 09/16/25 Procedure(s): CT abdomen pelvis w IV con Accession Number(s): [id number] cc: Linda Murphy DO; Teo Mazariegos DO Report Number: [id number]: Total DLP = 628.00 mGy-cm Reason for Exam: generalized abdominal pain EXAMINATION: CT ABDOMEN AND PELVIS WITH CONTRAST CLINICAL INFORMATION: Generalized abdominal pain. COMPARISON: January 25, 2022. TECHNIQUE: Multidetector volumetric images were obtained from the superior aspect of the liver through the pubic symphysis following administration 85 mL of Omnipaque 350 intravenous contrast. Sagittal and coronal reformatted images were obtained on the technologist's workstation. Oral contrast: No This CT examination was performed using dose optimization techniques as appropriate, variously including the following: *Automated exposure control *Adjustment of mA and/or kV according to patient size (this includes techniques or standardized protocols for targeted exams where dose is matched to indication/reason for exam; i.e. extremities or head) *Use of iterative reconstruction technique. DLP: 628 mGy-cm FINDINGS: LUNG BASES: Left-sided pleural effusion, moderate volume with the heterogeneous density and lobulated margins. LIVER, GALLBLADDER, AND BILIARY TREE: Liver measures 16 cm. Heterogeneous enhancement of the parenchyma with low density nonenhancing areas near the falciform ligament and gallbladder fossa. No enhancing mass. Cholecystectomy. No intrahepatic or extrahepatic biliary ductal dilatation. PANCREAS: No focal mass. No peripancreatic fluid collection. No main pancreatic ductal dilatation. SPLEEN: 10 cm. No solid or cystic mass. ADRENAL GLANDS: No nodular lesions. KIDNEYS AND URETERS: Normal enhancement pattern of the renal cortex. No enhancing renal mass. No hydronephrosis. No gross nephrolithiasis. Subcentimeter cyst, upper pole left kidney. BLADDER: Fluid-filled. GASTROINTESTINAL TRACT: Abundant stool, large intestine. Gas and fluid-filled mildly prominent small bowel loops from the duodenum into the duodenal jejunal and collapsed appearance of the ileal loops. No gross intestinal wall thickening. No pneumatosis intestinalis. Appendix is normal. No ascites. Trace of free fluid in the cul-de-sac. No peripheral enhancing fluid collection, peritoneal cavity. No pneumoperitoneum. Swirling of the mesentery on at the infraumbilical region. ABDOMINAL WALL: No gross umbilical hernia. LYMPH NODES: Prominent, inguinal, periodontal iliac, retroperitoneum and to a lesser extent mesenteric and. VASCULAR: No aneurysm or dissection, abdominal aorta. Small trace pericardial effusion. Main portal veins, hepatic veins and intrahepatic portion of the IVC as well as the IVC are patent. PELVIC VISCERA: Heterogeneous enhancement of the ureters. Focal calcifications in the adnexa. OSSEOUS STRUCTURES: Multilevel thoracolumbar spondylosis pronounced at L3-4 resulting in central spinal canal and bilateral neuroforamina stenosis. 12 mm blastic lesion, posterior left iliac bone. Unchanged since prior exam. CT/CT abdomen pelvis w IV con IMPRESSION: Left-sided without pleural effusion, moderate volume with questionable loculation and small volume pericardial effusion. Consider inflammatory versus infectious process, malignancy cannot be excluded. Hepatomegaly and prominent lymphadenopathy. Lymphoproliferative disorder cannot be excluded. Probable focal fatty infiltration, hepatic. 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 Fleischner guidelines were followed. Electronically signed by: Franki Fulton MD 09/16/2025 11:57 AM EST Dictated By: Franki Dubon MD Signed By: <Electronically signed by Franki Nixon MD in [place]> 09/16/25 1157 DD/ 1132 TD/TT: 09/16/25 1145 Nut Culler: Procedure Note Donotuseinterpreter, Image - 09/16/[address] [address] [address] Scan Report Signed Patient: Cody RuizR#: [id number] 61 : 1970Acct:[id number] Age/Sex: 55 / FADM Date: 09/16/25 Loc: HO.ED Attending Dr: Ordering Physician: Teo Mazariegos DO Date of Service: 09/16/25 Procedure(s): CT abdomen pelvis w IV con Accession Number(s): [id number] cc: Linda Murphy DO; Teo Mazariegos DO Report Number: [id number]: Total DLP = 628.00 mGy-cm Reason for Exam: generalized abdominal pain EXAMINATION: CT ABDOMEN AND PELVIS WITH CONTRAST CLINICAL INFORMATION: Generalized abdominal pain. COMPARISON: January 25, 2022. TECHNIQUE: Multidetector volumetric images were obtained from the superior aspect of the liver through the pubic symphysis following administration 85 mL of Omnipaque 350 intravenous contrast. Sagittal and coronal reformatted images were obtained on the technologist's workstation. Oral contrast: No This CT examination was performed using dose optimization techniques as appropriate, variously including the following: *Automated exposure control *Adjustment of mA and/or kV according to patient size (this includes techniques or standardized protocols for targeted exams where dose is matched to indication/reason for exam; i.e. extremities or head) *Use of iterative reconstruction technique. DLP: 628 mGy-cm FINDINGS: LUNG BASES: Left-sided pleural effusion, moderate volume with the heterogeneous density and lobulated margins. LIVER, GALLBLADDER, AND BILIARY TREE: Liver measures 16 cm. Heterogeneous enhancement of the parenchyma with low density nonenhancing areas near the falciform ligament and gallbladder fossa. No enhancing mass. Cholecystectomy. No intrahepatic or extrahepatic biliary ductal dilatation. PANCREAS: No focal mass. No peripancreatic fluid collection. No main pancreatic ductal dilatation. SPLEEN: 10 cm. No solid or cystic mass. ADRENAL GLANDS: No nodular lesions. KIDNEYS AND URETERS: Normal enhancement pattern of the renal cortex. No enhancing renal mass. No hydronephrosis. No gross nephrolithiasis. Subcentimeter cyst, upper pole left kidney. BLADDER: Fluid-filled. GASTROINTESTINAL TRACT: Abundant stool, large intestine. Gas and fluid-filled mildly prominent small bowel loops from the duodenum into the duodenal jejunal and collapsed appearance of the ileal loops. No gross intestinal wall thickening. No pneumatosis intestinalis. Appendix is normal. No ascites. Trace of free fluid in the cul-de-sac. No peripheral enhancing fluid collection, peritoneal cavity. No pneumoperitoneum. Swirling of the mesentery on at the infraumbilical region. ABDOMINAL WALL: No gross umbilical hernia. LYMPH NODES: Prominent, inguinal, periodontal iliac, retroperitoneum and to a lesser extent mesenteric and. VASCULAR: No aneurysm or dissection, abdominal aorta. Small trace pericardial effusion. Main portal veins, hepatic veins and intrahepatic portion of the IVC as well as the IVC are patent. PELVIC VISCERA: Heterogeneous enhancement of the ureters. Focal calcifications in the adnexa. OSSEOUS STRUCTURES: Multilevel thoracolumbar spondylosis pronounced at L3-4 resulting in central spinal canal and bilateral neuroforamina stenosis. 12 mm blastic lesion, posterior left iliac bone. Unchanged since prior exam. CT/CT abdomen pelvis w IV con IMPRESSION: Left-sided without pleural effusion, moderate volume with questionable loculation and small volume pericardial effusion. Consider inflammatory versus infectious process, malignancy cannot be excluded. Hepatomegaly and prominent lymphadenopathy. Lymphoproliferative disorder cannot be excluded. Probable focal fatty infiltration, hepatic. 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 Fleischner guidelines were followed. Electronically signed by: Franki Fulton MD 09/16/2025 11:57 AM EST Dictated By: Franki Dubon MD Signed By: <Electronically signed by Franki Nixon MDin OV> 09/16/25 1157 DD/ 1132 TD/TT: 09/16/25 1145 Nut Culler: [facility] External Provider IMG CT PROCEDURES Final Result * (ABNORMAL) Urinalysis, Complete, with Reflex to Culture (09/16/2025 9:34 AM EST) Color Urine Yellow [facility] Appearance Urine Cloudy [facility] PH 7.0 5.0 - 9.0 [facility] Glucose Urine UA Negative Negative mg/dL [facility] Urine Blood Negative Negative [facility] Specific [place] - Urine <=1.005 1.005 - 1.025 [facility] Urine Protein Negative Neg-Trace mg/dL [facility] Urine Ketones Negative Negative mg/dL [facility] Nitrite Urine Positive(A) Negative [facility] Leukocyte Esterase Urine Trace(A) Negative [facility] RBC Urine 0-2 0 - 2 /HPF [facility] Urine WBC 6-10(A) 0 - 5 /HPF [facility] Urine Squamous Epithelial Cell 11-20 0 - 2 /HPF [facility] Urine Bacteria 4+ None Seen [facility] Hyaline Casts, Urine 0-2 0 - 2 /LPF [facility] 09/16/2025 9:34 AM EST 09/16/2025 9:39 AM EST Narrative [facility] - 09/16/2025 9:54 AM EST [id number], Clean Catch us Generic External Data Provider LAB URINE ORDERAB LES Final Result [facility] [address] [place] [phone] * (ABNORMAL) CBC auto differential (09/16/2025 9:34 AM EST) Only the most recent of2 resultswithin the time period is included. White Blood Count 17.1(H) 4.8 - 10.8 X10*3/uL [facility] Red Blood Count 4.90 4.20 - 5.50 X10*6/uL [facility] Hemoglobin 13.0 12.0 - 16.0 g/dl [facility] Hematocrit 39.9 37.0 - 47.0 % [facility] Mean Corpuscular Volume 81.4 80.0 - 98.0 fL [facility] Mean Corpuscular Hemoglobin 26.5(L) 27.0 - 33.0 pg [facility] Mean Corpuscular HGB Conc 32.6 31.0 - 35.0 g/dl [facility] Red Cell Distribution Width 14.5 11.0 - 16.0 % [facility] Platelet Count 353 160 - 400 X10*3/uL [facility] Mean Platelet Volume 9.6 9.4 - 12.3 fL [facility] Neutrophils Percent Auto 76.2(H) 45 - 73 % [facility] Imm Gran Pct Auto 0.4 0.0 - 0.4 % [facility] Lymphocytes Percent Auto 16.2(L) 20 - 40 % [facility] Monocytes Percent Auto 6.0 2 - 11 % [facility] Eosinophils Percent Auto 0.7 0 - 4 % [facility] Basophils Percent Auto 0.5 0 - 2 % [facility] NRBC Pct Auto 0.1 0.0 - 0.2 /100WBC [facility] Neutrophils Absolute Auto 13.1(H) 2.0 - 8.3 x10*3/uL [facility] Imm Gran Abs Auto 0.07(H) 0.00 - 0.03 X10*3/uL [facility] Lymphocytes Absolute Auto 2.8 1.2 - 4.9 X10*3/uL [facility] Monocytes Absolute Auto 1.0 0.1 - 1.2 X10*3/uL [facility] Eosinophils Absolute Auto 0.1 0.0 - 0.4 X10*3/uL [facility] Basophils Absolute Auto 0.1 0.0 - 0.2 X10*3/uL [facility] NRBC Abs Auto 0.020(H) 0.0 - 0.012 X10*3/uL [facility] 09/16/2025 9:34 AM EST 09/16/2025 9:39 AM EST us Generic External Data Provider LAB BLOOD ORDERAB LES Final Result [facility] [address] [place] [phone] * Magnesium (09/16/2025 9:34 AM EST) Pathologist [facility] Magnesium 1.7 1.6 - 2.6 mg/dL [facility] 09/16/2025 9:34 AM EST 09/16/2025 9:39 AM EST Generic External Data Provider LAB BLOOD ORDERAB LES Final Result Performing Organization Address [facility] Co de Phone Number [facility] [address] [place] [phone] * Hepatic Function Panel (09/16/2025 9:34 AM EST) Pathologist [facility] Bilirubin, Direct 0.1 0.0 - 0.5 mg/dL [facility] 09/16/2025 9:34 AM EST 09/16/2025 9:39 AM EST Generic External Data Provider LAB BLOOD ORDERAB LES Final Result Performing Organization Address [facility] de Phone Number [facility] [address] [place] [phone] * (ABNORMAL) Comprehensive Metabolic Panel (09/16/2025 9:34 AM EST) Pathologist [facility] Sodium 136 135 - 145 mmol/L [facility] Potassium 4.2 3.3 - 5.1 mmol/L [facility] Chloride 97 96 - 108 mmol/L [facility] Carbon Dioxide 31(H) 22 - 29 mmol/L [facility] Anion Gap 12 12 - 20 [facility] Urea Nitrogen (BUN) 9 9 - 16 mg/dL [facility] Creatinine, Serum 1.14 0.5 - 1.4 mg/dL [facility] Creatinine Clr Calc Pharmacy 67.4 [facility] Comment:Provided height and weight: 170.18 cm,94.8 kg.eGFR (calculated from the MDRD study equation) and eCrCl(calculated from the Cockcroft-Gault equation) are based ondifferent parameters and may not yield comparable results.If eCrCl result is absurd, please check patient'sheight/weight. Estimated Glomerular Filt Rate 50 [facility] Comment:Chronic Kidney Disea se: Estimated GFR < 60 mL/min/1.29e5Afdxbg Kidney Disease: Estimated GFR < 15 mL/min/1.73m2 Glucose 293(H) 60 - 115 mg/dL [facility] Calcium 9.1 8.4 - 10.2 mg/dL [facility] Bilirubin, Total 0.3 0.0 - 1.0 mg/dL [facility] Aspartate Amino Transferase 23 5 - 31 U/L [facility] Alanine Aminotransferase 28 0 - 31 U/L [facility] Total Protein 8.0 6.5 - 8.0 g/dL [facility] Albumin Level 4.4 3.5 - 5.0 g/dL [facility] Alkaline Phosphatase 124(H) 39 - 117 U/L [facility] 09/16/2025 9:34 AM EST 09/16/2025 9:39 AM EST us Generic External Data Provider LAB BLOOD ORDERAB LES Final Result Performing Organization Address City/[facility]/ZIP Co de Phone Number [facility] [address] [place] [phone] * (ABNORMAL) Glucose, Whole Blood (09/16/2025 9:15 AM EST) Glucose, Whole Blood 333(H) 60 - 115 mg/dL [facility] Comment:METER #: [id number] 09/16/2025 9:15 AM EST 09/16/2025 9:19 AM EST us Generic External Data Provider LAB BLOOD ORDERAB LES Final Result Performing Organization Address City/[facility]/ZIP Co de Phone Number [facility] [address] [place] [phone] * Culture, Urine, Routine (09/16/2025 12:00 AM EST) Urine Urine specimen obtained by clean catch procedure / Unknown 09/16/2025 09/16/2025 Comment:UACC Narrative [facility] - 09/17/2025 9:21 AM EST Urine Culture Report Result Urine Culture > 100,000 cfu/ml Urine Culture Mixed bacterial cabrera characteristic of Urine Culture urogenital contamination. Specimen Source: Urine clean catch Generic External Data Provider LAB MICROBIOLOGY - GENERAL ORDERABLES Final Result [facility] [address] [place] [phone] * (ABNORMAL) Thyroglobulin, LC/MS/MS (09/15/2025 11:17 AM EST) Thyroglobulin, LC/MS/MS 0.2(A) ng/mL [facility] Comment:Reference Range: Int act Thyroid 2.8-40.9 Athyrotic <0.1 Note: Abnormal flagging is based on the reference interval for patients with intact thyroid.This test was performed using the [employer] Mobile Dentistrychemiluminescent method. Values obtained fromdifferent assay methods cannot be usedinterchangeably. Thyroglobulin levels, regardlessof value, should not be interpreted as absoluteevidence of the presence or absence of disease. Thyroglobulin Comment See Below [facility] Comment:Thyroglobulin antibo dies (TGAB) interfere withthyroglobulin (TG) assays; therefore, TGAB assayshould always be performed in conjunction with aTG assay.For additional information, please refer tohttp://education.Kaznachey/faq/CZY974(This link is being provided for informational/educational purposes only.)THIS TEST WAS PERFORMED AT:[employer] [place] [phone] DURANT MD 09/15/2025 11:1 7 AM EST 09/15/2025 11:17 AM EST us Generic External Data Provider LAB BLOOD ORDERAB LES Final Result [facility] [address] [place] [phone] * (ABNORMAL) Thyroblobulin, Tumor Marker w/Reflex (09/15/2025 11:17 AM EST) Thyroglobulin Antibody <1 <=1 IU/mL [facility] Comment:This Thyroglobulin a ntibody test was performedusing the [employer] Chemiluminescent method.Values obtained from different assay methods cannot beused interchangeably. Thyroglobulin antibody levels,regardless of value, should not be interpreted asabsolute evidence of the presence or absence ofdisease. Thyroglobulin, LC/MS/MS TNP [facility] Thyroglobulin Level 0.1(A) ng/mL [facility] Comment:Reference Range: Ath yrotic: <0.1 ng/mLReference range applies to differentiated thyroidcancer patients following treatment. The presence ofmeasurable thyroglobulin indicates the presence ofthyroglobulin-producing thyroid tissue. Clinicalcorrelation is advised.This Thyroglobulin test was performed using the[employer] Chemiluminescent method. Valuesobtained from different assay methods cannot beused interchangeably. Thyroglobulin levels, regardlessof value, should not be interpreted as absoluteevidence of the presence or absence of disease.THIS TEST WAS PERFORMED AT:[employer]/[id number] [place] [phone] ROJAS MD,PHD 09/15/2025 11:1 7 AM EST 09/15/2025 11:17 AM EST us Generic External Data Provider LAB BLOOD ORDERAB LES Final Result [facility] [address] [place] [phone] * Thyroglobulin Antibodies (09/15/2025 11:17 AM EST) Thyroglobulin Antibodies <1 < or = 1 IU/mL [facility] Comment:THIS TEST WAS PERFOR MED AT:[employer] [address] [phone] DURANT MD 09/15/2025 11:1 7 AM EST 09/15/2025 11:17 AM EST us Generic External Data Provider LAB BLOOD ORDERAB LES Final Result [facility] [address] [place] [phone] * (ABNORMAL) TSH (09/15/2025 11:17 AM EST) Thyroid Stimulating Hormone 8.02(H) 0.32 - 4.0 uIU/mL [facility] Comment:Note: A sustained TS H level above 2.5 uIU/mL may warrant further investigation. TSH 3rd Generation ([facility]) 09/15/2025 11:1 7 AM EST 09/15/2025 11:17 AM EST us Generic External Data Provider LAB BLOOD ORDERAB LES Final Result Performing Organization Address City/[facility]/ZIP Co de Phone Number [facility] [address] [place] [phone] * T4, Free (09/15/2025 11:17 AM EST) Free T4 (Free Thyroxine) 0.94 0.71 - 1.85 ng/dL [facility] 09/15/2025 11:1 7 AM EST 09/15/2025 11:17 AM EST us Generic External Data Provider LAB BLOOD ORDERAB LES Final Result Performing Organization Address City/[facility]/ZIP Co de Phone Number [facility] [address] [place] [phone] * Vitamin B12 (Cobalamin) and Folate Panel, Serum (07/20/2025 12:57 PM EDT) Vitamin B12 377 200 - 900 pg/mL [facility] Comment:NORMAL 200-900 PG/ML INDETERMINATE 160-199 PG/ML DEFICIENT < 160 PG/ML Folate 14.2 > or = 4.0 ng/mL [facility] Comment:Reference Values:> o r = 4.0 ng/mL< 4.0 ng/mL suggests folate deficiency Methotrexate, aminopterin and folinic acid(leucovorin) are chemotherapeutic agents whose molecularstructures are similar to folate; therefore, the Architectfolate assay cannot be used for patients using these drugs. Blood 07/20/2025 12:5 7 PM EDT 07/20/2025 12:57 PM EDT Linda Murphy DO LAB BLOOD ORDERABLES Final R esult Performing Organization Address [facility] Co de Phone Number [facility] [address] [place] [phone] * Iron And Total Iron Binding Capacity (07/20/2025 12:57 PM EDT) Iron 59 30 - 160 mcg/dL [facility] Comment:Slight Hemolysis.Int erpret result with caution. Total Iron Binding Capacity 303 228 - 428 mcg/dL [facility] Percent Iron Saturation 19 15 - 50 % [facility] Unsaturated Iron Binding 244 ug/dL [facility] Blood Venous blood specimen / Unknown 07/20/2025 12:57 PM EDT 07/20/2025 12:57 PM EDT us Linda Murphy DO LAB BLOOD ORDERABLES Final R esult Performing Organization Address [facility]/ZIP Co de Phone Number [facility] [address] [place] [phone] * Alpha-Fetoprotein, Tumor Marker (07/20/2025 12:57 PM EDT) Alpha Fetoprotein 2.7 ng/mL [facility] Comment:Reference Range: <6. 1The use of AFP as a tumor marker in females is not recommended.This test was performed using the Johny Coulterchemiluminescent method. Values obtained fromdifferent assay methods cannot be usedinterchangeably. AFP levels, regardless ofvalue, should not be interpreted as absoluteevidence of the presence or absence of disease.THIS TEST WAS PERFORMED AT:[employer] [place] [phone] DURANT MD Blood Venous blood specimen / Unknown 07/20/2025 12:57 PM EDT 07/20/2025 12:57 PM EDT Linda Murphy LAB BLOOD ORDERABLES Final R esult Performing Organization Address [facility]/ZIP Co de Phone Number [facility] [address] [place] [phone] * (ABNORMAL) Partial Thromboplastin Time, Activated (APTT) (07/20/2025 12:57 PM EDT) Partial Thromboplastin Time 40.1(H) 26.7 - 34.1 SEC [facility] Blood Venous blood specimen / Unknown 07/20/2025 12:57 PM EDT 07/20/2025 12:57 PM EDT Linda Murphy LAB BLOOD ORDERABLES Final R esult Performing Organization Address [facility] Co de Phone Number [facility] [address] [place] [phone] * (ABNORMAL) Prothrombin Time-INR (07/20/2025 12:57 PM EDT) Prothrombin Time 10.6(L) 10.9 - 12.4 SEC [facility] INTERNATIONAL NORM RATIO 0.9 0.9 - 1.1 [facility] Comment:INTERNATIONAL NORMAL IZED RATIO (INR) [...] DO LAB BLOOD ORDERABLES Final R esult [facility] [address] [place] [phone] * Ferritin (07/20/2025 12:57 PM EDT) Ferritin 58 10 - 250 ng/mL [facility] Blood Venous blood specimen / Unknown 07/20/2025 12:57 PM EDT 07/20/2025 12:57 PM EDT Linda Murphy DO LAB BLOOD ORDERABLES Final R esult Performing Organization Address City/[facility]/ZIP Co de Phone Number [facility] [address] [place] [phone] * (ABNORMAL) POCT Hgb A1c (07/20/2025 11:19 AM EDT) Hemoglobin A1C 8.1(A) 4.0 - 5.7 % QC Media Lot # [id number] Lot# Expiration Date Blood 07/20/2025 11:1 9 AM EDT Linda Murphy DO POINT OF CARE TEST ENTER/JAME T ORDERABLES Final Result * POCT Glucose (07/20/2025 11:18 AM EDT) Glucose Blood, POC 134 60 - 200 mg/dL QC Media Lot # [id number] Lot# Expiration Date [id number] Blood Capillary blood specimen / Unknown 07/20/2025 [...] - 06/21/2025 9:36 AM EDT UTOX cup Lot#[id number] Exp. 08/17/26 Internal Pass Control Linda Murphy DO POINT OF CARE TEST ENTER/JAME T ORDERABLES Final Result * Albumin, Random Urine W/Creatinine (04/26/2025 11:11 AM EDT) Creatinine, Urine 52.62 mg/dL [facility] Microalbumin Urine 11.0 mg/L [facility] Microalbum Creatinine Ratio Ur 20.9 <30 ug/mg cr [facility] Comment:Albumin/Creatinine R atio Reference Ranges: Normal: < 30 ug/mg creatinine Microalbuminuria: 30 - 300 ug/mg creatinineClinical Albuminuria: > 300 ug/mg creatinine Urine (Urine, Random) 04/26/2025 11:11 AM EDT 04/26/2025 12:56 PM EDT Linda Murphy DO LAB URINE ORDERABLES Final R esult Performing Organization Address City/[facility] Co de Phone Number [facility] [address] [place] [phone] * Hepatitis C Antibody with Reflex to HCV, RNA, Quantitative, Real-Time PCR (04/26/2025 11:11 AM EDT) Hepatitis C Antibody Nonreactive Nonreactive [facility] Comment:Antibodies to HCV no t detected; does not exclude early acuteHCV infection. Blood Venous blood specimen / Unknown 04/26/2025 11:11 AM EDT 04/26/2025 12:56 PM EDT Linda Murphy DO LAB BLOOD ORDERABLES Final R esult Performing Organization Address [facility] Co de Phone Number [facility] [address] [place] [phone] * HIV-1/2 Antigen and Antibodies, Fourth Generation, with Reflexes (04/26/2025 11:11 AM EDT) HIV AB/AG Nonreactive Nonreactive [facility] Comment:HIV-1 p24 Ag and/or HIV-1/HIV-2 Ab not detected.A test result that is nonreactive does not exclude thepossibility of exposure to or infection with HIV-1 and/orHIV-2. Nonreactive results in this assay for individualswith prior exposure to HIV-1 and/or HIV-2 may be due toantigen and antibody levels that are below the limit ofdetection of this assay.The Interhyp HIV Ag/Ab Combo assay result andsupplemental assay results should be interpreted inconjunction with the patient's clinical presentation,history and other laboratory results. If the results areinconsistent with clinical evidence, additional testing issuggested to confirm the result. Blood Venous blood specimen / Unknown 04/26/2025 11:11 AM EDT 04/26/2025 12:56 PM EDT us Linda Murphy DO LAB BLOOD ORDERABLES Final R esult Performing Organization Address [facility] Co de Phone Number [facility] [address] [place] [phone] * (ABNORMAL) Lipid Panel, Standard (04/26/2025 11:11 AM EDT) Triglycerides 161(H) <150 mg/dL [facility] Comment:Desirable Triglyceri de: less than 150 mg/dLBorderline High Triglyceride 150-199 mg/dLHigh Triglyceride: 200-499 mg/dLVery High Triglyceride: greater than or equal to 5OO mg/dL Cholesterol 139 <200 mg/dL [facility] Comment:Desirable Cholestero l: less than 200 mg/dLBorderline High Cholesterol: 200-239 mg/dLHigh Cholesterol: greater than 239 mg/dL LDL Cholesterol Calculated 64 <100 mg/dL [facility] Comment:Desirable LDL: less than 100 mg/dLNear Optimal/Above Optimal LDL: 110- 129 mg/dLBorderline High LDL: 130-159 mg/dLHigh LDL: 160-189 mg/dLVery High LDL: greater than or equal to 190 mg/dL HDL Cholesterol 43 >40 mg/dL [facility] Comment:Desirable HDL: great er than 40 mg/dL Note: This HDL assay may give artificially low results in patients with liver disease. Blood Venous blood specimen / Unknown 04/26/2025 11:11 AM EDT 04/26/2025 12:56 PM EDT us Linda Murphy DO LAB BLOOD ORDERABLES Final R esult Performing Organization Address [facility]/ZIP Co de Phone Number [facility] [address] [place] [address] [phone] * Referral to Podiatry (03/04/2025) us Asuncion Bailey MD OUTPATIENT REFERRAL ANDERSON VALENTINO Final Result * HPV E6/E7 RFLX LUIS 16 18/45 (05/21/2022 3:45 PM EDT) HPV mRNA E6/E7 rflx Not Detected Not Detected [facility] Comment: Methodology: Service Mechanic-Mediated Amplification This assay detects E6/E7 viral messenger RNA (mRNA) from 14 high-risk HPV types (16,18,31,33,35,39,45,51,52,56,58,59,66,68). Cervical sources are required for HPV testing. If a vaginal source from a patient who has had a total hysterectomy with removal of cervix was submitted, please contact the testing laboratory for alternative testing options. For additional information, please refer to http://education.Kaznachey/faq/YFM429w4 (This link if provided for information/ educational purposes only.) THIS TEST WAS PERFORMED AT: [employer] [address] [place] [address],[place] [phone] VALERIA DURANT MD 05/21/2022 3:45 PM EDT Fercho Palmer MD HISTORICAL/NON ORDERABLE LABS Fi nal Result Performing Organization Address City/[facility]/ZIP Co de Phone Number [facility] [address] * Pap Smear (02/15/2022 12:00 AM EDT) Swab Linda Murphy DO LAB CYTOLOGY ORDERABLES Ce l Result Performing Organization Address City/[facility]/ZIP Co de Phone Number [facility] [address] [place] [address], [place] [phone] * DIGITAL BILATERAL SCREEN 1 (04/01/2019 2:56 PM EDT) Anatomical Region Laterality Modality Breast Bilateral Mammography 04/01/2019 2:56 PM EDT Narrative 04/01/2019 2:58 PM EDT Refer to the Notes tab for result details [facility] Procedure: DIGITAL BILATERAL SCREEN 1 Procedure Note Margie Jimenez MD - 02/02/2023 Refer to the Notes tab for result details [facility] Procedure: DIGITAL BILATERAL SCREEN 1 Linda Murphy DO IMG BI PROCEDURES Final Resu lt from Last 3 Months or Most Recently Relevant to Health Maintenance Insurance [employer] < 65 [employer] Care Teams Snowmaker Relationship Specialty Start Date End Date Linda Murphy DO [address] [place] [phone] PCP - General Family Medicine 11/24/12
--- OUTSIDE RECORDS SUMMARY | 2025-09-21 13:23 | XMS_ITS | Encounter Summary ---
Author Organization [employer] Address [address] [place] [address] [address] [place] [address] Care Team Providers Care Backfiller Name Role Phone Linda Murphy DO Primary Care Provider DelNeri zavala PharmD Unavailable Unavail able Antionette Murphy PharmD Unavailable Reason for Visit * Reason Comments Med Refill Encounter Details Date Type Department Care Team (Late st Contact Info) Description 07/08/2023 Refill [facility] [address] [place] [address] Linda Murphy DO [address] [place] [address] Pain Social History Tobacco Use Types Packs/Day [...] documented as of this encounter Care Teams Backfiller Relationship Specialty Start Date End Date Linda Murphy DO [address] [place] [address] PCP - General Family Medicine 11/24/12 Neri Yang, PharmD [address] [place] [address] Pharmacist Internal Medicine 11/23/22 10/17/23 Antionette Murphy PharmD [address] [place] [address] Pharmacist Internal Medicine 07/15/24 02/25/25 documented as of this encounter
--- OUTSIDE RECORDS SUMMARY | 2025-09-21 13:23 | XMS_ITS | Encounter Summary ---
Author Organization [employer] Address [address] [facility] 7t [place] [address] Care Team Providers Care Metallurgical Analyst Name Role Phone Linda Murphy DO Primary Care Provider [phone] Antionette Murphy PharmD Unavailable [phone] Reason for Visit * Reason Comments Med Refill Encounter Details Date Type Department Care Team ([facility] st Contact Info) Description 11/24/2023 Refill [facility] MEDICINE [address] [place] [address] Linda Murphy DO [address] [place] [address] Social History Tobacco Use Types Packs/Day Years [...] documented as of this encounter Care Teams Metallurgical Analyst Relationship Specialty Start Date End Date Linda Murphy DO [address] [place] [address] PCP - General Family Medicine 11/24/12 Antionette Murphy PharmD [address] [place] [address] Pharmacist Internal Medicine 07/15/24 02/25/25 documented as of this encounter
--- OUTSIDE RECORDS SUMMARY | 2025-09-21 13:23 | XMS_ITS | Encounter Summary ---
Author Organization [employer] Address [address] [facility] 7t [place] [address] Care Team Providers Care Household Assistant Name Role Phone Linda Murphy DO Primary Care Provider [phone] Neri Yang PharmD Unavailable Unavail able Antionette Murphy PharmD Unavailable Reason for Visit * Reason Onset Date Comments Results 10/08/2023 Encounter Details Date Type Department Care Team ([facility] st Contact Info) Description 10/08/2023 Telephone [facility] MEDICINE 230 [place] [address] Linda Murphy DO 230 [place], [place] [phone] Results Social History Tobacco Use Types Packs/Day [...] yesterday 10/07/2023 but was transferred to the [facility]. documented in this encounter Plan of [...] documented as of this encounter Care Teams Household Assistant Relationship Specialty Start Date End Date Linda Murphy DO [address] [place] [address] PCP - General Family Medicine 11/24/12 Neri Yang, PharmD [address] [place] [address] Pharmacist Internal Medicine 11/23/22 10/17/23 Antionette Murphy PharmD [address] [place] [address] Pharmacist Internal Medicine 07/15/24 02/25/25 documented as of this encounter
--- OUTSIDE RECORDS SUMMARY | 2025-09-21 13:23 | XMS_ITS | Encounter Summary ---
Author Organization [employer] Address [address] [facility] 7t [place] [address] Care Team Providers Care Seed Core Operator Name Role Phone Joelle Murphyfer Primary Care Provider + [phone] Encounter Details Date Type Department Care Team [...] the past 12 months, has t he [employer], gas, oil or water company threatened to [...] Associated Diagnosis Comments XR CHEST 2 VIEWS Routine 09/16/2025 1:[address] ABDOMEN PELVIS W CONTRAST Routine 09/16/2025 11:32 AM EST URINALYSIS, COMPLETE, WITH REFLEX TO CULTURE Routine 09/16/2025 9:34 AM EST CBC WITH AUTO DIFFERENTIAL Routine 09/16/2025 9:34 AM EST MAGNESIUM Routine 09/16/2025 9:34 AM EST HEPATIC FUNCTION PANEL Routine 9:34 AM EST COMPREHENSIVE METABOLIC PANEL Routine 09/16/2025 9:34 AM EST GLUCOSE, WHOLE BLOOD Routine 09/16/2025 9:15 AM EST CULTURE, URINE, ROUTINE Routine 09/16/2025 12:00 AM EST documented in this encounter Results * XR Chest 2 Views (09/16/2025 1:00 PM EST) Anatomical Region Laterality Modality Chest Radiographic Rosaura ging 09/16/2025 1:00 PM EST Narrative 09/16/2025 1:19 PM EST [address] [address] XRay Report Signed Patient: Tisha Ruiz MR#: [id number] 61 : 1970 Acct:[id number] Age/Sex: 55 / F ADM Date: 09/16/25 Loc: HO.ED Attending Dr: Ordering Physician: Teo Mazariegos DO Date of Service: 09/16/25 Procedure(s): XR chest 2V Accession Number(s): [id number] cc: Linda Murphy DO; Teo Mazariegos DO [...] Franki Fulton MD 09/16/2025 01:16 PM EST Dictated By: Franki Dubon MD Signed By: <Electronically signed by Franki Nixon MD in OV> 09/16/25 1316 DD/ 1300 TD/TT: 09/16/25 1312 Human Resources Hr Representative: Procedure Note Donotuseinterpreter, Image - 09/16/[address] [address] XRay Report Signed Patient: Ayanna RuiznMR#: [id number] 61 : 1970Acct:[id number] Age/Sex: 55 / FADM Date: 09/16/25 Loc: HO.ED Attending Dr: Ordering Physician: Teo Mazariegos DO Date of Service: 09/16/25 Procedure(s): XR chest 2V Accession Number(s): [id number] cc: Linda Murphy DO; Teo Mazariegos DO [...] Franki Fulton MD 09/16/2025 01:16 PM EST Dictated By: Franki Dubon MD Signed By: <Electronically signed by Franki Nixon MDin OV> 09/16/25 1316 DD/ 1300 TD/TT: 09/16/25 1312 Human Resources Hr Representative: [facility] External Provider IMG XR PROCEDURES Final Result * CT Abdomen Pelvis w/ Contrast (09/16/2025 11:32 AM EST) Anatomical Region Laterality Modality Body, Pelvis, Abdomen Computed T omography 09/16/2025 11:3 2 AM EST Narrative 09/16/2025 12:00 PM EST [address] [address] [address] Scan Report Signed Patient: Tisha Ruiz MR#: [id number] 61 : 1970 Acct:[id number] Age/Sex: 55 / F ADM Date: 09/16/25 Loc: HO.ED Attending Dr: Ordering Physician: Teo Mazariegos DO Date of Service: 09/16/25 Procedure(s): CT abdomen pelvis w IV con Accession Number(s): [id number] cc: Linda Murphy DO; Teo Mazariegos DO Report Number: [id number]: Total DLP = 628.00 mGy-cm Reason for [...] 09/16/25 1157 DD/ 1132 TD/TT: 09/16/25 1145 Human Resources Hr Representative: Procedure Note Donotuseinterpreter, Image - 09/16/[address] [place] [address] [address] Scan Report Signed Patient: Ayanna RuiznMR#: [id number] 61 : 1970Acct:[id number] Age/Sex: 55 / FADM Date: 09/16/25 Loc: HO.ED Attending Dr: Ordering Physician: Teo Mazariegos DO Date of Service: 09/16/25 Procedure(s): CT abdomen pelvis w IV con Accession Number(s): [id number] cc: Linda Murphy DO; Teo Mazariegos DO Report Number: [id number]: Total DLP = 628.00 mGy-cm Reason for [...] 09/16/25 1157 DD/ 1132 TD/TT: 09/16/25 1145 Human Resources Hr Representative: [facility] External Provider IMG CT PROCEDURES Final Result * Magnesium (09/16/2025 9:34 AM EST) Magnesium 1.7 1.6 - 2.6 mg/dL [facility] 09/16/2025 9:34 AM EST 09/16/2025 9:39 AM EST Generic External Data Provider LAB BLOOD ORDERAB LES Final Result Performing Organization Address City/State/[facility] Co de Phone Number [facility] [address] [place] [phone] * Hepatic Function Panel (09/16/2025 9:34 AM EST) Bilirubin, Direct 0.1 0.0 - 0.5 mg/dL [facility] 09/16/2025 9:34 AM EST 09/16/2025 9:39 AM EST us Generic External Data Provider LAB BLOOD ORDERAB LES Final Result [facility] [address] [place] [phone] * (ABNORMAL) Comprehensive Metabolic Panel (09/16/2025 9:34 AM EST) Sodium 136 135 - 145 mmol/L [facility] Potassium 4.2 3.3 - 5.1 mmol/L [facility] Chloride 97 96 - 108 mmol/L [facility] Carbon Dioxide 31(H) 22 - 29 mmol/L [facility] Anion Gap 12 12 - 20 [facility] Urea Nitrogen (BUN) 9 9 - 16 mg/dL [facility] Creatinine, Serum 1.14 0.5 - 1.4 mg/dL [facility] Creatinine Clr Calc Pharmacy 67.4 [facility] Comment:Provided height and weight: 170.18 cm,94.8 kg.eGFR (calculated from the MDRD study equation) and eCrCl(calculated from the Cockcroft-Gault equation) are based ondifferent parameters and may not yield comparable results.If eCrCl result is absurd, please check patient'sheight/weight. Estimated Glomerular Filt Rate 50 [facility] Comment:Chronic Kidney Disea se: Estimated GFR < 60 mL/min/1.55n2Lovhrk Kidney Disease: Estimated GFR < 15 mL/min/1.73m2 Glucose 293(H) 60 - 115 mg/dL [facility] Calcium 9.1 8.4 - 10.2 mg/dL [facility] Bilirubin, Total 0.3 0.0 - 1.0 mg/dL [facility] Aspartate Amino Transferase 23 5 - 31 U/L [facility] Alanine Aminotransferase 28 0 - 31 U/L [facility] Total Protein 8.0 6.5 - 8.0 g/dL [facility] Albumin Level 4.4 3.5 - 5.0 g/dL [facility] Alkaline Phosphatase 124(H) 39 - 117 U/L [facility] 09/16/2025 9:34 AM EST 09/16/2025 9:39 AM EST Generic External Data Provider LAB BLOOD ORDERAB LES Final Result Performing Organization Address [facility] Co de Phone Number [facility] [address] [place] [phone] * (ABNORMAL) Urinalysis, Complete, with Reflex to Culture (09/16/2025 9:34 AM EST) Color Urine Yellow [facility] Appearance Urine Cloudy [facility] PH 7.0 5.0 - 9.0 [facility] Glucose Urine UA Negative Negative mg/dL [facility] Urine Blood Negative Negative [facility] Specific Lerna - Urine <=1.005 1.005 - 1.025 [facility] Urine Protein Negative Neg-Trace mg/dL [facility] Urine Ketones Negative Negative mg/dL [facility] Nitrite Urine Positive(A) Negative [facility] Leukocyte Esterase Urine Trace(A) Negative [facility] RBC Urine 0-2 0 - 2 /HPF [facility] Urine WBC 6-10(A) 0 - 5 /HPF [facility] Urine Squamous Epithelial Cell 11-20 0 - 2 /HPF [facility] Urine Bacteria 4+ None Seen [facility] Hyaline Casts, Urine 0-2 0 - 2 /LPF [facility] 09/16/2025 9:34 AM EST 09/16/2025 9:39 AM EST Narrative [facility] - 09/16/2025 9:54 AM EST [id number], Clean Catch Generic External Data Provider LAB URINE ORDERAB LES Final Result Performing Organization Address [facility] Co de Phone Number [facility] [address] [place] [phone] * (ABNORMAL) CBC auto differential (09/16/2025 9:34 AM EST) White Blood Count 17.1(H) 4.8 - 10.8 X10*3/uL [facility] Red Blood Count 4.90 4.20 - 5.50 X10*6/uL [facility] Hemoglobin 13.0 12.0 - 16.0 g/dl [facility] Hematocrit 39.9 37.0 - 47.0 % [facility] Mean Corpuscular Volume 81.4 80.0 - 98.0 fL [facility] Mean Corpuscular Hemoglobin 26.5(L) 27.0 - 33.0 pg [facility] Mean Corpuscular HGB Conc 32.6 31.0 - 35.0 g/dl [facility] Red Cell Distribution Width 14.5 11.0 - 16.0 % [facility] Platelet Count 353 160 - 400 X10*3/uL [facility] Mean Platelet Volume 9.6 9.4 - 12.3 fL [facility] Neutrophils Percent Auto 76.2(H) 45 - 73 % [facility] Imm Gran Pct Auto 0.4 0.0 - 0.4 % [facility] Lymphocytes Percent Auto 16.2(L) 20 - 40 % [facility] Monocytes Percent Auto 6.0 2 - 11 % [facility] Eosinophils Percent Auto 0.7 0 - 4 % [facility] Basophils Percent Auto 0.5 0 - 2 % [facility] NRBC Pct Auto 0.1 0.0 - 0.2 /100WBC [facility] Neutrophils Absolute Auto 13.1(H) 2.0 - 8.3 x10*3/uL [facility] Imm Gran Abs Auto 0.07(H) 0.00 - 0.03 X10*3/uL [facility] Lymphocytes Absolute Auto 2.8 1.2 - 4.9 X10*3/uL [facility] Monocytes Absolute Auto 1.0 0.1 - 1.2 X10*3/uL [facility] Eosinophils Absolute Auto 0.1 0.0 - 0.4 X10*3/uL [facility] Basophils Absolute Auto 0.1 0.0 - 0.2 X10*3/uL [facility] NRBC Abs Auto 0.020(H) 0.0 - 0.012 X10*3/uL [facility] 09/16/2025 9:34 AM EST 09/16/2025 9:39 AM EST us Generic External Data Provider LAB BLOOD ORDERAB LES Final Result Performing Organization Address [facility] Co de Phone Number [facility] [address] [place] [phone] * (ABNORMAL) Glucose, Whole Blood (09/16/2025 9:15 AM EST) Glucose, Whole Blood 333(H) 60 - 115 mg/dL [facility] Comment:METER #: [id number] 09/16/2025 9:15 AM EST 09/16/2025 9:19 AM EST us Generic External Data Provider LAB BLOOD ORDERAB LES Final Result Performing Organization Address [facility] de Phone Number [facility] [address] [place] [phone] * Culture, Urine, Routine (09/16/2025 12:00 AM EST) Urine Urine specimen obtained by clean catch procedure / Unknown 09/16/2025 09/16/2025 Comment:UACC Narrative [facility] - 09/17/2025 9:21 AM EST Urine Culture Report Result Urine Culture > 100,000 cfu/ml Urine Culture Mixed bacterial cabrera characteristic of Urine Culture urogenital contamination. Specimen Source: Urine clean catch us Generic External Data Provider LAB MICROBIOLOGY - GENERAL ORDERABLES Final Result Performing Organization Address [facility] de Phone Number [facility] [address] [place] [phone] documented in this encounter Visit Diagnoses Not on filedocumented in this encounter Additional Health Concerns Assessment Noted Time PHQ-9 Depression Total Score: 0 07/20/20 25 11:20 AM EDT documented as of this encounter Care Teams Seed Core Operator Relationship Specialty Start Date End Date Linda Murphy DO [address] [place] [address] PCP - General Family Medicine 11/24/12 documented as of this encounter
--- OUTSIDE RECORDS SUMMARY | 2025-09-21 13:23 | XMS_ITS | Encounter Summary ---
Author Organization [employer] Address [address] [place] [address] 7 [place] [address] Care Team Providers Care Sound Effects Manager Name Role Phone Linda Murphy DO Primary Care Provider [phone] Reason for Visit * Reason Onset Date Comments Prior Authorization 09/17/2025 REBECCA PA: Nika Collier Encounter Details Date Type Department Care Team ([facility] st Contact Info) Description 09/17/2025 Telephone [facility] MEDICINE [address] [place] [address] Linda Murphy DO [address] [place] [address] Prior Authorization (REBECCA PA: Angela Collier) Social History Tobacco Use Types Packs/Day Years [...] encounter Miscellaneous Notes * Telephone Encounter - Dayna Tian - 09/17/2025 3:08 PM EST [place] initiated on Covermymeds for [employer]. Approval/denial pending. (Perdomo: [id number]) EDWARD Rx #: [id number] documented in this encounter Plan of Treatment [...] documented as of this encounter Care Teams Sound Effects Manager Relationship Specialty Start Date End Date Linda Murphy DO [address] [place] [address] PCP - General Family Medicine 11/24/12 documented as of this encounter
--- OUTSIDE RECORDS SUMMARY | 2025-09-21 13:23 | XMS_ITS | Encounter Summary ---
Author Organization [facility] Address [address] [facility] [address] [place] [address] Phone Care Team Providers Care State Trooper Name Role Phone Linda Murphy DO Primary Care Provider Encounter Details Date Type Department Care Team (Late st Contact Info) Description 07/03/2024 Procedure Pass [facility], Ct Scan - [address] [address] Social History Tobacco Use Types Packs/Day Years [...] 3:17 PM EDT Antonia Beaulieu RN * Nobles Suicide Severity Rating Scale (Screener/Recent Self-Report) Question [...] on filedocumented in this encounter Care Teams State Trooper Relationship Specialty Start Date End Date Linda Murphy DO [address] [place] [address] PCP - General Family Medicine 07/03/24 documented as of this encounter Additional Source Comments The information contained in this document represents components of the legal health record. It is not the complete legal health record.[facility]
--- OUTSIDE RECORDS SUMMARY | 2025-09-21 13:23 | XMS_ITS | Clinical Summary ---
Author Organization [facility] Address [address] [place] [address] Phone Care Team Providers Care Moisture Tester Name Role Phone Linda Murphy DO Primary Care Provider [phone] Allergies No known active allergies Medications acetaminophen [...] Diagnosed Date Allergic rhinitis 12/22/2024 Bipolar disorder (CMS/[facility] V24, CMS/[facility] V28) 02/1 11/2024 DANIEL (obstructive sleep apnea) 12/22/2024 Hyperlipidemia 12/22/2024 Type 2 diabetes mellitus ([facility] V24, [facility] V 28) 12/22/2024 Fatty liver 12/22/2024 Status post thyroidectomy 12/22/2024 Hx of papillary thyroid carcinoma 12/22/2024 GERD (gastroesophageal reflux disease) Chronic low back pain 12/22/2024 Leukocytosis 12/22/2024 Toenail avulsion 12/22/2024 Plantar callus 12/22/2024 Onychomycosis 12/22/2024 Encounters Date Type Department Care Team Description 08/31/2025 10:15 AM EDT Office Visit Orthopedic Surgery [facility] [address] [phone] Gutierrez Ruiz DPM Controlled type 2 diabetes with neuropathy (CMS/[facility] V24, [facility] V28) (Primary Dx); Metatarsalgia of right foot; [...] 10:15 AM EST Office Visit Orthopedic Surgery [facility] [address] [phone] Gutierrez Ruiz DPM [address] [address] Health Maintenance Due Date Last Done Comments [...] Screening: Pap Smear 02/15/2025 02/15/2022 COVID-19 Vaccine ( season) 2025 10/06/2024, 07/22/2023, 08/24/2022, Additional history [...] ID:ICO Type:Not on file Address: [address] [place] [address] Care Teams Moisture Tester Relationship Specialty Start Date End Date Linda Murphy DO [address] [place], [place] PCP - General Internal Medicine 04/09/19
--- OUTSIDE RECORDS SUMMARY | 2025-09-21 13:23 | XMS_ITS | Encounter Summary ---
Author Organization [employer] Address [address] 7[address] [place] [address] Care Team Providers Care Fibreglass Lay Up Worker Name Role Phone Linda Murphy DO Primary Care Provider [phone] Antionette Murphy PharmD Unavailable [phone] Reason for Visit * Reason Onset Date Comments Medication Question 11/13/2023 Encounter Details Date Type Department Care Team ([facility] st Contact Info) Description 11/13/2023 Telephone [facility] MEDICINE [address] [place] [address] Linda Murphy DO [address] [place] [address] Medication Question Social History Tobacco Use Types [...] 11/08 Physical appointment. Please contact pt at [phone] documented in this encounter Plan of Treatment [...] documented as of this encounter Care Teams Fibreglass Lay Up Worker Relationship Specialty Start Date End Date Linda Murphy DO [address] [place] [address] PCP - General Family Medicine 11/24/12 Antionette Murphy PharmD [address] [place] [address] Pharmacist Internal Medicine 07/15/24 02/25/25 documented as of this encounter
--- OUTSIDE RECORDS SUMMARY | 2025-09-21 13:23 | XMS_ITS | Encounter Summary ---
Author Organization [employer] Address [address] 7t [place] [address] Care Team Providers Care Community Assistant Name Role Phone Linda Murphy DO Primary Care Provider [phone] Reason for Visit * Reason Comments Med Refill Encounter Details Date Type Department Care Team ([facility] st Contact Info) Description 07/14/2025 Refill [facility] [address] [place] [address] Linda Murphy DO [address] [facility] [place] [address] Chronic bilateral low back pain without sciatica [...] as of this encounter Care Teams Community Assistant Relationship Specialty Start Date End Date Linda Murphy DO [address] [place] [address] PCP - General Family Medicine 11/24/12 documented as of this encounter
--- OUTSIDE RECORDS SUMMARY | 2025-09-21 13:23 | XMS_ITS | Encounter Summary ---
Author Organization [employer] Address [address] [place] [address] 7 [place] [address] Care Team Providers Care Dryerman/Woman Name Role Phone Linda Murphy DO Primary Care Provider [phone] Reason for Visit * Reason Onset Date Comments Prior Authorization 09/17/2025 REBECCA PA: Sarah nex HFA 100 MCG Encounter Details Date Type Department Care Team ([facility] st Contact Info) Description 09/17/2025 Telephone [facility] MEDICINE [address] [place] [address] Linda Murphy DO [address] [place] [address] Prior Authorization (REBECCA PA: Asmanex HFA 100 MCG) Social History Tobacco Use Types Packs/Day Years [...] encounter Miscellaneous Notes * Telephone Encounter - Ludmila Romero [place] - 09/20/2025 9:09 AM EST PA approval received for Asman[employer] from [employer] form sent to scan. * Telephone Encounter - Dayna Tian - 09/17/2025 3:17 PM EST PA initiated on Covermymeds for [employer]. Approval/denial pending. (Perdomo: [id number]) EDWARD Rx #: [id number] documented in this encounter Plan of Treatment [...] documented as of this encounter Care Teams Dryerman/Woman Relationship Specialty Start Date End Date Linda Murphy DO [address] [place] [address] PCP - General Family Medicine 11/24/12 documented as of this encounter
--- OUTSIDE RECORDS SUMMARY | 2025-09-21 13:23 | XMS_ITS | Encounter Summary ---
Author Organization [employer] Address [address] [facility] [place] [address] Care Team Providers Care Ballet Company Member Name Role Phone KatherineLinda Primary Care Provider + [phone] Encounter Details Date Type Department Care Team (Latest Contact Info) Description 09/20/2025 Travel Social History Tobacco Use Types Packs/Day Years Used Date Smoking Tobacco: Former Cigarettes Passive Smoke Exposure: Current Smokeless Tobacco: Never Comments:Went from 2 packs d aily to 3 cigarettes daily Pt states she's [...] t he electric, gas, oil or water [employer] threatened to shut off services in your [...] documented as of this encounter Care Teams Ballet Company Member Relationship Specialty Start Date End Date Linda Murphy DO [address] [place] [address] PCP - General Family Medicine 11/24/12 documented as of this encounter
--- OUTSIDE RECORDS SUMMARY | 2025-09-21 13:23 | XMS_ITS | Encounter Summary ---
Author Organization [employer] Address [address] [facility] 7t [place] [address] Care Team Providers Care Sales Department Manager Name Role Phone Linda Murphy DO Primary Care Provider DelNeri zavala PharmD Unavailable Unavail able Antionette Murphy PharmD Unavailable [phone] Reason for Visit * Reason Onset Date Comments letter michael lopez 07/26/2023 Encounter Details Date Type Department Care Team (Late st Contact Info) Description 07/26/2023 Telephone [facility] MEDICINE [address] [place] [address] Linda Murphy DO [address] [place], [place] [phone] letter michael lopez Social History Tobacco Use [...] to Medical side. Please contact pt at [phone] documented in this encounter Plan of Treatment [...] documented as of this encounter Care Teams Sales Department Manager Relationship Specialty Start Date End Date Linda Murphy DO [address] [place] [address] PCP - General Family Medicine 11/24/12 Neri Yang, PharmD [address] [place] [address] Pharmacist Internal Medicine 11/23/22 10/17/23 Antionette Murphy PharmD [address] [place] [address] Pharmacist Internal Medicine 07/15/24 02/25/25 documented as of this encounter
--- OUTSIDE RECORDS SUMMARY | 2025-09-21 13:23 | XMS_ITS | Encounter Summary ---
Author Organization [employer] Address [address] 7t [place] [address] Care Team Providers Care Stable Hand Name Role Phone Linda Murphy DO Primary Care Provider [phone] Antionette Murphy PharmD Unavailable [phone] Reason for Visit * Reason Onset Date Comments Med Refill 12/18/2024 Encounter Details Date Type Department Care Team (Late st Contact Info) Description 12/18/2024 Refill [facility] MED & PEDS [address] [place] [address] Linda Murphy DO [address] [facility] [place] [address] Acute post-traumatic headache, not intractable; Chronic obstructive [...] documented as of this encounter Care Teams Stable Hand Relationship Specialty Start Date End Date Linda Murphy DO 230 [place] [address] PCP - General Family Medicine 11/24/12 Antionette Murphy PharmD [address] [place] [address] Pharmacist Internal Medicine 07/15/24 02/25/25 documented as of this encounter
--- OUTSIDE RECORDS SUMMARY | 2025-09-21 13:23 | XMS_ITS | Encounter Summary ---
Author Organization [employer] Address [address] 7[address] [place] [address] Care Team Providers Care Embedder Name Role Phone Linda Murphy DO Primary Care Provider [phone] Antionette Murphy PharmD Unavailable [phone] Reason for Visit * Reason Comments Med Refill Encounter Details Date Type Department Care Team (Late st Contact Info) Description 02/11/2025 Refill [facility] MED & PEDS [address] [place] [address] Linda Murphy DO 230 [place] [address] Chronic low back pain, unspecified back pain [...] documented as of this encounter Care Teams Embedder Relationship Specialty Start Date End Date Linda Murphy DO [address] [place] [address] PCP - General Family Medicine 11/24/12 Antionette Murphy PharmD [address] [place] [address] Pharmacist Internal Medicine 07/15/24 02/25/25 documented as of this encounter
--- OUTSIDE RECORDS SUMMARY | 2025-09-21 13:23 | XMS_ITS | Encounter Summary ---
Author Organization [employer] Address [address] [facility] 7t [place] [address] Care Team Providers Care Auto Carrier Driver Name Role Phone Linda Murphy DO Primary Care Provider [phone] Antionette Murphy PharmD Unavailable [phone] Reason for Visit * Reason Comments Med Refill Encounter Details Date Type Department Care Team ([facility] st Contact Info) Description 02/23/2024 Refill [facility] MEDICINE [address] [place] [address] Linda Murphy DO [address] [place] [address] Chronic obstructive pulmonary disease, unspecified COPD type [...] as of this encounter Care Teams Auto Carrier Driver Relationship Specialty Start Date End Date Linda Murphy DO 230 [place] [address] PCP - General Family Medicine 11/24/12 Antionette Murphy PharmD [address] [place] [address] Pharmacist Internal Medicine 07/15/24 02/25/25 documented as of this encounter
== END 2025-09-21 11:14 | disposition home or self-care (01) ==
LOC: HO.LNP 11:13
PROVIDERS: Visit Provider Internal Medicine
DX: N12 Tubulo-interstitial nephritis, not specified as acute or chronic (principal)
CPT/HCPCS: 87086; 87088; 87186

== ENCOUNTER 2025-09-29 08:05 | Outpatient (REF) | payer OTHER, SELFPAY ==
--- NOTE | ~2025-09-29 | XR_ITS ---
EXAMINATION: XR CHEST CLINICAL INFORMATION: left sided pleural effusion fu COMPARISON: September 16, 2025 TECHNIQUE: PA and lateral views. FINDINGS: Horizontally oriented opacity left lower hemithorax resulting in blunting of the costophrenic angle. No pneumothorax. Pulmonary reticular pattern. Hyperinflated lungs. Cardiomediastinal silhouette size is normal. Multilevel spondylosis. XR/XR chest 2V IMPRESSION: Left-sided pleural effusion, small to moderate volume. Persistent/no gross change. Electronically signed by: Franki Fulton MD 09/29/2025 08:34 AM EST
[2025-09-29 09:04] LABS: Hematocrit 36.3 % (37.0-47.0); Hemoglobin 11.9 g/dl (12.0-16.0); Imm Gran Abs Auto 0.23 X10*3/uL (0.00-0.03); Imm Gran Pct Auto 0.9 % (0.0-0.4); Lymphocytes Absolute Auto 2.5 X10*3/uL (1.2-4.9); MANUAL DIFF FLAG SCAN; Mean Corpuscular HGB Conc 32.8 g/dl (31.0-35.0); Mean Corpuscular Hemoglobin 26.4 pg (27.0-33.0); Mean Corpuscular Volume 80.7 fL (80.0-98.0); NRBC Abs Auto 0.000 X10*3/uL (0.0-0.012); NRBC Pct Auto 0.0 /100WBC (0.0-0.2); Platelet Count 475 X10*3/uL (160-400); Red Blood Count 4.50 X10*6/uL (4.20-5.50); SCAN SMEAR FLAG 1; White Blood Count 26.9 X10*3/uL (4.8-10.8)
[2025-09-29 09:40] LABS: Amylase 43 U/L (28-100); Lipase 23 U/L (8-78)
[2025-09-29 09:51] LABS: Thyroid Stimulating Hormone 42.32 uIU/mL (0.32-4.0)
[2025-09-29 09:52] LABS: Free T4 (Free Thyroxine) 0.85 ng/dL (0.71-1.85)
--- OUTSIDE RECORDS SUMMARY | 2025-09-29 15:32 | XMS_ITS | Encounter Summary ---
Author Organization [employer] Address [address] [facility] 7t [place] [address] Care Team Providers Care Stamping Mill Tender Name Role Phone Linda Murphy DO Primary Care Provider [phone] Dellogla Neri PharmD Unavailable Unavail able Antionette Murphy PharmD Unavailable [phone] Reason for Visit * Reason Comments Med Refill Encounter Details Date Type Department Care Team (Late st Contact Info) Description 04/10/2023 Refill [facility] MED & PEDS [address] [place] [address] Linda Murphy DO [address] [facility] [place] [address] Social History Tobacco Use Types Packs/Day Years [...] Department Care Team (Late Contact Info) Description 10/01/2025 9:00 AM EST Office Visit [facility] MEDICINE [address] [place] [address] Linda Murphy DO 230 [place] [address] documented as of this encounter Goals Goal [...] documented as of this encounter Care Teams Stamping Mill Tender Relationship Specialty Start Date End Date Linda Murphy DO [address] [place] [address] PCP - General Family Medicine 11/24/12 Neri Yang, PharmD [address] [place] [address] Pharmacist Internal Medicine 11/23/22 10/17/23 Antionette Murphy, EricD [address] [place] [address] Pharmacist Internal Medicine 07/15/24 02/25/25 documented as of this encounter
--- OUTSIDE RECORDS SUMMARY | 2025-09-29 15:32 | XMS_ITS | Encounter Summary ---
Author Organization [employer] Address [address] [facility] 7t [place] [address] Care Team Providers Care Exhibit Designer Name Role Phone Linda Murphy DO Primary Care Provider [phone] Dellogla Neri PharmD Unavailable Unavail able Antionette Murphy PharmD Unavailable Reason for Visit * Reason Comments Med Refill Encounter Details Date Type Department Care Team (Late st Contact Info) Description 04/05/[address] [facility] PEDIATRICS [address] [place] [address] Linda Murphy DO [address] [place] [address] Social History Tobacco Use Types Packs/Day Years [...] Care Team (Late st Contact Info) Description 10/01/2025 9:00 AM EST Office Visit [facility] MEDICINE [address] [place] [address] Linda Murphy DO [address] [place] [address] documented as of this encounter Goals Goal [...] documented as of this encounter Care Teams Exhibit Designer Relationship Specialty Start Date End Date Linda Murphy DO [address] [place] [address] PCP - General Family Medicine 11/24/12 Neri Yang, PharmD [address] [place] [address] Pharmacist Internal Medicine 11/23/22 10/17/23 Antionette Murphy PharmD [address] [place] [address] Pharmacist Internal Medicine 07/15/24 02/25/25 documented as of this encounter
--- OUTSIDE RECORDS SUMMARY | 2025-09-29 15:32 | XMS_ITS | Encounter Summary ---
Author Organization [employer] Address [address] [facility] 7t [place] [address] Care Team Providers Care Head Of Human Resources Name Role Phone Linda Murphy DO Primary Care Provider [phone] Antionette Murphy PharmD Unavailable [phone] Reason for Visit * Reason Comments Med Refill Encounter Details Date Type Department Care Team ([facility] st Contact Info) Description 07/03/2024 Refill [facility] MEDICINE [address] [place] [address] Linda Murphy DO [address] [place] [address] Tobacco dependence Social History Tobacco Use Types [...] Description 10/01/2025 9:00 AM EST Office Visit [facility] MEDICINE [address] [place] [address] Linda Murphy DO [address] [place] [address] documented as of this encounter Goals Goal [...] documented as of this encounter Care Teams Head Of Human Resources Relationship Specialty Start Date End Date Linda Murphy DO [address] [place] [address] PCP - General Family Medicine 11/24/12 Antionette Murphy PharmD [address] [place] [address] Pharmacist Internal Medicine 07/15/24 02/25/25 documented as of this encounter
--- OUTSIDE RECORDS SUMMARY | 2025-09-29 15:33 | XMS_ITS | Encounter Summary ---
Author Organization [employer] Address [address] [place] [address] 7t [place] [address] Care Team Providers Care Thermal Engineer Name Role Phone Linda Murphy DO Primary Care Provider [phone] DelNeri zavala PharmD Unavailable Unavail able Antionette Murphy PharmD Unavailable Reason for Referral * Imaging (Routine) - Canceled Specialty Diagnoses / Procedures Referred By Rolf pascual Referred To Contact Radiology Diagnoses Hilar mass Procedures CT Chest w/o Contrast Nora Astudillo FNP [address] [place] [address] Phone: tel: fax: [address] Phone: tel: fax: Referral ID Status Reason Start Date Expiration Date V isits Requested Visits Authorized [id number] Canceled 10/11/2023 10/10/2024 1 1 Encounter Details Date Type Department Care Team (Late st Contact Info) Description 10/11/2023 Orders Only [facility] MED & PEDS [address] [place] [address] Nora Astudillo FNP [address] [place] [address] Hilar mass (Primary Dx) Social History Tobacco [...] Description 10/01/2025 9:00 AM EST Office Visit [facility] MEDICINE [address] [place] [address] Linda Murphy DO [address] [place] [address] Scheduled Orders Name Type Priority Associated Diagnoses [...] documented as of this encounter Care Teams Thermal Engineer Relationship Specialty Start Date End Date Linda Murphy DO [address] [place] [address] PCP - General Family Medicine 11/24/12 Neri Yang, PharmD [address] [place] [address] Pharmacist Internal Medicine 11/23/22 10/17/23 Antionette Murphy, Kaiden [address] [place] [address] Pharmacist Internal Medicine 07/15/24 02/25/25 documented as of this encounter
--- OUTSIDE RECORDS SUMMARY | 2025-09-29 15:33 | XMS_ITS | Encounter Summary ---
Author Organization [employer] Address [address] [facility] 7t [place] [address] Care Team Providers Care Supervisor Compressed Yeast Name Role Phone Linda Murphy DO Primary Care Provider DellogNeri tovar PharmD Unavailable Unavail able Antionette Murphy PharmD Unavailable Reason for Visit * Reason Onset Date Comments triage 11/14/2022 Encounter Details Date Type Department Care Team (Late st Contact Info) Description 11/14/2022 Telephone [facility] MEDICINE [address] [place] [address] Linda Murphy DO [address] [place], [place] [phone] triage Social History Tobacco Use Types Packs/Day [...] EST Triage call Pt reports seen in [facility] today. Pt reports bruising on bilateral [...] Description 10/01/2025 9:00 AM EST Office Visit [facility] MED[facility] [address] [place] [address] Linda Murphy DO [address] [place] [address] documented as of this encounter Visit Diagnoses Not on filedocumented in this encounter Care Teams Supervisor Compressed Yeast Relationship Specialty Start Date End Date Linda Murphy DO [address] [place] [address] PCP - General Family Medicine 11/24/12 Neri Yang PharmD [address] [place] [address] Pharmacist Internal Medicine 11/23/22 10/17/23 Antionette Murphy PharmD [address] [place] [address] Pharmacist Internal Medicine 07/15/24 02/25/25 documented as of this encounter
--- OUTSIDE RECORDS SUMMARY | 2025-09-29 15:33 | XMS_ITS | Encounter Summary ---
Author Organization [facility] Address [address] [facility] [address] [place] [address] Phone Care Team Providers Care Geospatial Specialist Name Role Phone Linda Murphy DO Primary Care Provider [phone] Encounter Details Date Type Department Care Team (Late st Contact Info) Description 07/03/2024 Procedure Pass [facility], Ct Scan - [address] [address] Social History Tobacco Use Types Packs/Day Years [...] 3:17 PM EDT Antonia Beaulieu RN * Snyder Suicide Severity Rating Scale (Screener/Recent Self-Report) Question [...] on filedocumented in this encounter Care Teams Geospatial Specialist Relationship Specialty Start Date End Date Linda Murphy DO [address] [place] [address] PCP - General Family Medicine 07/03/24 documented as of this encounter Additional Source Comments The information contained in this document represents components of the legal health record. It is not the complete legal health record.[facility]
--- OUTSIDE RECORDS SUMMARY | 2025-09-29 15:33 | XMS_ITS | Encounter Summary ---
Author Organization [employer] Address [address] [place] [address] Care Team Providers Care Laborer Pipeline Name Role Phone Linda Murphy DO Primary Care Provider [phone] Encounter Details Date Type Department Care Team ([facility] Contact Info) Description 08/11/2025 Orders Only [facility] MEDICINE [address] [place] [address] Linda Murphy DO [address] [place] [address] Social History Tobacco Use Types Packs/Day Years [...] your housing situation today? I have christie blacn 08/26/[address] you li [...] Description 10/01/2025 9:00 AM EST Office Visit [facility] MEDICINE [address] [place] [address] Linda Murphy DO [address] [place] [address] documented as of this encounter Goals Goal [...] as of this encounter Care Teams Laborer Pipeline Relationship Specialty Start Date End Date Linda Murphy DO [address] [place] [address] PCP - General Family Medicine 11/24/12 documented as of this encounter
--- OUTSIDE RECORDS SUMMARY | 2025-09-29 15:33 | XMS_ITS | Clinical Summary ---
Author Organization [employer] Address [address] [facility] [address] [place] [address] Care Team Providers Care Hose Tester Name Role Phone Linda Murphy DO [...] obstructive pulmonary disease, unspecified COPD type (CMS/HCC) ([facility]) INHALE 1 AMPULE USING A NEBULIZER FOUR TIMES DAILY NEEDED FOR ASTHMA OR (for COPD) 180 mL 2 024 Active hydrOXYzine pamoate (Vistaril) 50 MG capsule TAKE 1 CAPSULE BY MOUTH THREE TIMES DAILY NEEDED FOR ANXIETY 024 Active loratadine (Claritin) 10 MG tablet TAKE 1 TABLET BY MOUTH EVERY MORNING 30 tablet 11 024 Active tiotropium (Spiriva HandiHaler) 18 MCG inhalation capsuleIndication s:Chronic obstructive pulmonary disease, unspecified COPD type (CMS/HCC) ([facility]) USE 1 CAPSULE FOR INHALATION ONCE A DAY DO NOT SWALLOW CAPSULE 30 capsule 11 025 Active Mometasone Furoate (Asmanex HFA) 100 MCG/ACT aerosol Inhale 2 Act (200 mcg) 2 times daily. 13 g 025 Active Ascorbic Acid (vitamin C) 250 MG tablet TAKE 1 TABLET BY MOUTH TWICE DAILY AT NOON AND IN THE EVENING WITH IRON 180 tablet 3 025 Active pantoprazole (ProtoNix) 20 MG EC tabletIndications :Chronic GERD TAKE 1 TABLET BY MOUTH TWICE DAILY AT NOON AND IN THE EVENING 180 tablet 3 025 Active lisinopril 2.5 MG tablet TAKE 1 TABLET BY MOUTH EVERYDAY AT NOON 90 tablet 025 Active methocarbamol (Robaxin) 500 MG tablet Take 1 tablet by mouth every 6 (six) hours during the day. 024 Active Vit-Fe Fumarate-FA ( Vitamins) 28-0.8 MG tablet TAKE 1 TABLET BY MOUTH EVERYDAY AT NOON 90 tablet 3 025 Active montelukast (Singulair) 10 MG tablet TAKE 1 TABLET BY MOUTH EVERY EVENING 90 tablet 3 025 Active lidocaine (Lidoderm) 5 % patchIndications: Right thigh pain Apply 1 patch topically if needed each day for mild pain. Remove & discard patch within 12 hours or as directed by MD. 30 patch 3 025 Active Ventolin HFA 108 (90 Base) MCG/ACT inhalerIndication s:Chronic obstructive pulmonary disease, unspecified COPD type (CMS/HCC) ([facility]) INHALE 2 PUFFS BY MOUTH EVERY 4 HOURS NEEDED FOR WHEEZING OR SHORTNESS OF BREATH 18 g 2 Active baclofen (Lioresal) 10 MG tablet Take 1 tablet (10 mg) by mouth if needed in the morning, at noon, and at bedtime for muscle spasms. 60 tablet 025 2025 Active Diclofenac Sodium 1 % gel Apply 2 g topically if needed in the morning, at noon, in the evening, and at bedtime (pain). 150 g 3 Active acetaminophen (Tylenol 8 Hour) 650 MG ER tabletIndications :Acute post-traumatic headache, not intractable TAKE 1 TABLET BY MOUTH EVERY 8 HOURS NEEDED FOR PAIN OR FEVER 60 tablet 3 Active Aspirin Low Dose 81 MG EC tabletIndications :Type 2 diabetes mellitus with other specified complication, unspecified whether termite treater helper insulin use (HCC) TAKE 1 TABLET BY MOUTH AT BEDTIME 90 tablet 1 Active gabapentin (Neurontin) 600 MG tablet TAKE 1 TABLET BY MOUTH THREE TIMES DAILY 90 tablet 3 Active Alcohol Swabs (Alcohol Prep) 70 % padsIndications:T ype 2 diabetes mellitus without complication, without long-term current use of insulin ([facility]) USE EVERY DAY UP TO TWICE DAILY 100 each Active TRUEplus Lancets 33G miscIndications:T ype 2 diabetes mellitus without complication, without long-term current use of insulin ([facility]) USE TO TEST BLOOD SUGAR UP TO TWICE DAILY 100 each Active glucose blood (FREESTYLE LITE) test stripIndications: Type 2 diabetes mellitus without complication, without long-term current use of insulin ([facility]) USE TO TEST BLOOD SUGAR UP TO TWICE DAILY 100 strip Active ferrous sulfate 325 (65 Fe) MG EC tablet TAKE 1 TABLET BY MOUTH EVERY DAY. DO NOT BREAK, CRUSH, DISSOLVE OR CHEW 30 tablet Active metFORMIN XR (Glucophage-XR) 500 MG 24 hr tabletIndications :Type 2 diabetes mellitus without complication, without long-term current use of insulin ([facility]) Take 2 tablets (1,000 mg) by mouth with breakfast and with evening meal. Do not crush, chew, or split. 360 tablet Active Blood Glucose Monitoring Suppl (FreeStyle Lite) deviceIndications :Type 2 diabetes mellitus without complication, without long-term current use of insulin ([facility]) Inject 1 each under the skin 2 times daily. Use to test blood sugar twice daily, as directed 1 each Active atorvastatin (Lipitor) 40 MG tablet TAKE 1 TABLET BY MOUTH AT BEDTIME 30 tablet 5 Active semaglutide (Rybelsus) 7 MG tabletIndications :Type 2 diabetes mellitus without complications (HCC) TAKE 1 TABLET BY MOUTH EVERY MORNING 30 MINUTES BEFORE A MEAL 30 tablet 5 Active glipiZIDE (Glucotrol) 5 MG tablet TAKE 2 TABLETS BY MOUTH TWICE DAILY IN THE MORNING AND EVENING BEFORE MEALS 120 tablet 5 Active Blood Glucose Monitoring Suppl (FreeStyle Lite) deviceIndications :Type 2 diabetes mellitus without complication, without long-term current use of insulin ([facility]) Inject 1 each under the skin 2 times daily. Use to test blood sugar twice daily, as directed 1 each 024 2024 Discontinued(R eorder (will not trigger notification to Pharmacy)) Alcohol Swabs (Alcohol Prep) 70 % padsIndications:T ype 2 diabetes mellitus without complication, without long-term current use of insulin ([facility]) USE EVERY DAY UP TO TWICE DAILY 100 each 11 024 2024 Discontinued glucose blood (FREESTYLE LITE) test stripIndications: Type 2 diabetes mellitus without complication, without long-term current use of insulin ([facility]) Use to check blood sugar up to twice daily 100 each 024 2024 Discontinued TRUEplus Lancets 33G miscIndications:T ype 2 diabetes mellitus without complication, without long-term current use of insulin ([facility]) Use to check blood sugar up to twice daily 100 each 11 024 2024 Discontinued metFORMIN XR (Glucophage-XR) 500 MG 24 hr tabletIndications :Type 2 diabetes mellitus without complication, without long-term current use of insulin ([facility]) TAKE 2 TABLETS BY MOUTH TWICE DAILY AT NOON AND IN THE EVENING 360 tablet 1 025 2024 Discontinued(R eorder (will not trigger notification to Pharmacy)) atorvastatin (Lipitor) 40 MG tablet TAKE 1 TABLET BY MOUTH AT BEDTIME 30 tablet 5 025 2024 Discontinued glipiZIDE (Glucotrol) 5 MG tablet TAKE 2 TABLETS BY MOUTH TWICE DAILY IN THE MORNING AND EVENING BEFORE MEALS 120 tablet 5 2024 Discontinued semaglutide (Rybelsus) 7 MG tabletIndications :Type 2 diabetes mellitus without complications (HCC) TAKE 1 TABLET BY MOUTH EVERY MORNING 30 MINUTES BEFORE A MEAL 30 tablet 5 2024 Discontinued ferrous sulfate 325 (65 Fe) MG EC tablet TAKE 1 TABLET BY MOUTH EVERY DAY DO NOT BREAK, CRUSH, DISSOLVE OR CHEW 30 tablet 025 2024 Discontinued phenazopyridine (Pyridium) 100 MG tablet Take 1 tablet (100 mg) by mouth if needed in the morning, at noon, and at bedtime for bladder spasms for up to 3 days. 10 tablet 2024 ondansetron ODT (Zofran-ODT) 4 MG disintegrating tabletIndications :Nausea and vomiting, unspecified vomiting type Take 1 tablet (4 mg) by mouth every 8 (eight) hours if needed for nausea or vomiting for up to 7 days. 20 tablet 2024 Hospital, Clinic, or Other Facility Administered Medication Ordered Dose Route Frequency Start Date End Date Status ondansetron ODT (Zofran-ODT) disintegrating tablet 4 mgIndications:Nausea and vomiting, unspecified vomiting type 4 mg PO Once 09/20/2025 09/20/2025 Ended Active Problems Problem Noted Date Diagnosed Date Nausea and vomiting 09/20/2025 Assessment & Plan (09/21/2025 3:23 PM EST): Most likely related to UTI/pyelonephritis? See above Pyelonephritis 09/20/2025 Assessment & Plan (09/21/2025 3:26 PM EST): It seems to be patient's culprit for symptoms, current UA does not show UTI, will send for culture and treat accordingly. Rx prior radium for 3 to 4 days, counseled regarding increased fluid intake, use heat about the suprapubic area and take Tylenol as needed I explained to patient that on occasion this infections can be taking care of by her immune system but some of the symptoms may take some time to disappear, therefore we will treat them symptomatically. Long-term current use of opiate analgesic 2024 Status post lobectomy of lung 04/21/2025 Hypothyroidism 02/11/2025 Hot flashes 02/11/2025 Hypercalcemia 02/11/2025 Incomplete right bundle branch block 02/11/2025 BMI 32.0-32.9,adult 02/11/2025 Multinodular goiter 02/11/2025 Assessment & Plan (09/21/2025 3:22 PM EST): Patient is abnormal TSH could have been related to acute infection, advised to repeat TSH in approximately 2 or 3 weeks and follow-up with PCP. No change in medications at this time Patellofemoral arthritis of right knee Postoperative hypothyroidism 02/11/2025 Overview (02/11/2025): some degree of thyroid hormone malabsorption Uterine fibroid 02/11/2025 Varicose veins of right lower extremity with inf lammation 02/11/2025 Vitamin D deficiency 02/11/2025 History of thyroid cancer 02/11/2025 Overview (02/11/2025): thyroidectomy 2020 Non-small cell lung cancer 01/27/2025 Assessment & Plan (09/21/2025 3:24 PM EST): Patient had left lung lobectomy on 02/2025. She was recently found with left- sided pleural effusion (CXR as part of workup for fever) that seems to have been present since after the surgery 6 months ago. Will repeat CXR in 2 weeks, patient does not seem to be symptomatic from that and does not have any other URI symptoms. Advised to RTC to WIC or ED if she develops worsening cough, sputum production orthopnea DANIEL (obstructive sleep apnea) 12/22/2024 Onychomycosis 08/26/2024 [...] -f/u with pain mgmt prn -advised contact C if sx change or worsen Leukocytosis 11/08/2023 Assessment & Plan (09/21/2025 3:25 PM EST): Most likely related to acute UTI/pyonephritis, see above Will repeat CBC in 2 weeks Assessment & Plan (01/28/2024 2:46 PM EDT): WBC nml Aug 2023 -will continue to monitor -will re-refer to hematology prn Type 2 diabetes mellitus 03/16/2016 Assessment & Plan (01/28/2024 2:44 PM EDT): Significant bump in A1c, repeat A1c in lab as requested -encouraged dietary changes -cont metformin and glipizide BID -cont rybelsus daily -cont regular BS monitoring -re-referred to [facility] pharmacist for eval -cont statin and low-dose [...] instrumentation of the toenail - refer to perch machine inspector - TB UTD Plantar callus 08/26/2024 01/27/2025 [...] Encounters Date Type Department Care Team Description 09/29/2025 Orders Only [facility] [address] [place] [address] Asuncion Bailey MD 09/28/2025 Telephone [facility] [address] [place], [place] [phone] Linda Murphy DO Chart Prep 09/26/2025 Refill [facility] [address] [place] [address] Linda Murphy DO Type 2 diabetes mellitus without complications (HCC) 09/20/2025 11:30 AM EST Office Visit [facility] [place] [address] Asuncion Bailey MD Pyelonephritis (Primary Dx); Nausea and vomiting, unspecified vomiting type; Leukocytosis, unspecified type; Multinodular goiter; Non-small cell cancer of left lung (CMS/HCC) (HCC) 09/20/2025 Travel 09/17/2025 Telephone [facility] [address] Linda Murphy DO Prior Authorization (CCA PA: Asmanex HFA 100 MCG) 09/17/2025 Telephone [facility] [place] [address] Linda Murphy DO Prior Authorization (CCA PA: Spiriva HandiHaler) 09/16/2025 Orders Only GENERIC EXTERNAL DATA DEPARTMENT Provider, Generic External Data 09/15/2025 Telephone [facility] [place] [address] Yaima Marquez RN Error (VOID this visit) 09/15/2025 Orders Only GENERIC EXTERNAL DATA DEPARTMENT Provider, Generic External Data 09/02/2025 Refill [facility] [place] [address] Linda Murphy DO Type 2 diabetes mellitus without complication, without long-term current use of insulin ([facility]) 08/30/2025 Refill [facility] [place] [address] Linda Murphy DO Type 2 diabetes mellitus without complication, without long-term current use of insulin ([facility]) 08/18/2025 Telephone [facility] [address] No Lopez, KRYSTYNA NCNS BRACELET FORM COVERER RV today; Pt does not want to take Tramadol anymore 08/11/2025 Orders Only [facility] [place] [address] Linda Murphy DO 08/09/2025 Refill [facility] [place] [address] Linda Murphy DO 08/06/2025 Refill [facility] [address] [place] [phone] Linda Murphy DO 08/04/2025 Refill [facility] [address] [place] [address] Linda Murphy DO Type 2 diabetes mellitus with other specified complication, unspecified whether shelter insulin use (CMS/HCC) 08/03/[address] [address] No Lopez RN cancelled chronic group and BRACELET FORM COVERER appts multiple times 07/29/[address] [address] Linda Murphy DO telephone call; Reschedule BRACELET FORM COVERER/Chronic pain group; Blood Sugar Problem 07/28/[address] [address] No Lopez, KRYSTYNA NCNS BRACELET FORM COVERER RV today 07/27/2025 Refill [facility] [address] [place], [place] [phone] Linda Murphy DO Acute post-traumatic headache, not intractable 07/20/2025 11:15 AM EDT Office Visit [address] [address] Linda Murphy DO Type 2 diabetes mellitus [...] neoplasm of breast 07/20/2025 Travel 07/19/2025 Refill [facility] [address] [place], [place] [phone] Linda Murphy DO Chronic bilateral low back pain without sciatica 07/16/2025 Telephone [facility] [address] [place] [address] Linda Murphy DO Chart Prep 07/15/2025 Refill [facility] [address] [place], [place] [phone] Linda Murphy DO 07/14/2025 Refill [facility] [address] [place], [place] [phone] Linda Murphy DO Chronic bilateral low back pain without sciatica 07/01/2025 Telephone [facility] [address] [place], [place] [phone] Linda Murphy DO Appointment Request 07/01/2025 Travel from Last 3 Months Immunizations Immunization [...] t he electric, gas, oil or water [employer] threatened to shut off services in your [...] 09/20/2025 11:43 AM EST Plan of Treatment Upcoming Encounters Date Type Department Care Team (Late st Contact Info) Description 10/01/2025 9:00 AM EST Office Visit [facility] [address] [place], [place] [phone] Linda Murphy DO [address] [place] [address] Health Maintenance Due Date Last Done Comments CT Colonography 1972 Colonoscopy 1972 Colorectal Cancer Screening 1972 FIT DNA/Cologuard 1972 FIT 1972 FOBT 1972 Sigmoidoscopy 1972 Eye Exam 1982 Hepatitis A Vaccines (1 of 2 - Risk 2-dose series) 1991 Mammogram 04/01/2021 04/01/2019, 03/12, 01/09/2018 RSV Patients and Patients Aged 60 years or older (1 - Risk 50-74 years 1-dose series) 2022 Cervical Cancer Screening 02/15/2025 Pap Smear 02/15/2025 02/15/2022, 02/15/2022 COVID-19 Vaccine ( season) 2025 10/06/2024, [...] Completed 08/14/2023, 10/27/2012, 04/23/2012 HIV Screening Completed 04/26/2025, 08/11, 09/19/2022, Additional [...] Author Hemoglobin A1c < 7 Result Component 8.1( 11:19 AM EDT) No Neri Yang, PharmD Help patients manage their type 2 diabetes Care Plan Help patients manage their type 2 diabetes Janette Michelle MA Weekly blood pressure task Care Plan Weekly blood pressure task No Janette Ramires MA Help patients manage their type 2 diabetes Care Plan Help patients manage their type 2 diabetes Janette Michelle MA Patient has chronic kidney disease Care Plan Patient has chronic kidney disease No Janette Ramires MA Weekly blood pressure task Care Plan Weekly blood pressure task No Janette Ramires MA Patient has chronic kidney disease Care Plan Patient has chronic kidney disease No Janette Ramires MA Procedures Procedure Name Priority Date/Time Associated Diagnosis Comments T4, FREE Routine 09/29/2025 8:38 AM EST TSH Routine 09/29/2025 8:38 AM EST SLIDE REVIEW Routine 09/29/2025 8:38 AM EST LIPASE Routine 09/29/2025 8:38 AM EST Nausea and vomiting, unspecified vomiting type AMYLASE Routine 09/29/2025 8:38 AM EST Nausea and vomiting, unspecified vomiting type TSH W/REFLEX TO FT4 Routine 09/29/2025 8 :38 AM EST Multinodular goiter CBC WITH AUTO DIFFERENTIAL Routine 09/29/2025 8:38 AM EST Pyelonephritis XR CHEST 2 VIEWS Routine 09/29/2025 8:14 AM EST Non-small cell cancer of left lung (CMS/HCC) (HCC) CULTURE, URINE, ROUTINE Routine 09/21/2025 1:00 AM EST Pyelonephritis POCT URINALYSIS DIPSTICK Routine 09/20/2025 12:00 PM [...] without long-term current use of insulin (CMS/HCC) HEPATITIS C AB W/REFL TO HCV RNA, [...] Recently Relevant to Health Maintenance Results * Slide Review (09/29/2025 8:38 AM EST) Slide Review VERIFIED [facility] 09/29/2025 8:38 AM EST 09/29/2025 8:38 AM EST us Asuncion Bailey MD LAB BLOOD ORDERABLES Fin al Result Performing Organization Address [facility]/ZIP Co de Phone Number [facility] [address] [place] [address] [phone] * (ABNORMAL) TSH with Reflex to Free T4 (09/29/2025 8:38 AM EST) Pathologist [facility] TSH reflex Free T4 42.32(H) 0.32 - 4.0 uIU/mL [facility] Blood 09/29/2025 8:38 AM EST 09/29/2025 8:38 AM EST Asuncion Bailey MD LAB BLOOD ORDERABLES Fin al Result Performing Organization Address [facility] Co de Phone Number [facility] [address] [place] [address] [phone] * (ABNORMAL) CBC auto differential (09/29/2025 8:38 AM EST) Only the most recent of3 resultswithin the time period is included. Pathologist [facility] White Blood Count 26.9(H) 4.8 - 10.8 X10*3/uL [facility] Red Blood Count 4.50 4.20 - 5.50 X10*6/uL [facility] Hemoglobin 11.9(L) 12.0 - 16.0 g/dl [facility] Hematocrit 36.3(L) 37.0 - 47.0 % [facility] Mean Corpuscular Volume 80.7 80.0 - 98.0 fL [facility] Mean Corpuscular Hemoglobin 26.4(L) 27.0 - 33.0 pg [facility] Mean Corpuscular HGB Conc 32.8 31.0 - 35.0 g/dl [facility] Red Cell Distribution Width 14.4 11.0 - 16.0 % [facility] Platelet Count 475(H) 160 - 400 X10*3/uL [facility] Mean Platelet Volume 9.6 9.4 - 12.3 fL [facility] Neutrophils Percent Auto 82.9(H) 45 - 73 % [facility] Imm Gran Pct Auto 0.9(H) 0.0 - 0.4 % [facility] Lymphocytes Percent Auto 9.3(L) 20 - 40 % [facility] Monocytes Percent Auto 6.0 2 - 11 % [facility] Eosinophils Percent Auto 0.6 0 - 4 % [facility] Basophils Percent Auto 0.3 0 - 2 % [facility] NRBC Pct Auto 0.0 0.0 - 0.2 /100WBC [facility] Neutrophils Absolute Auto 22.3(H) 2.0 - 8.3 x10*3/uL [facility] Imm Gran Abs Auto 0.23(H) 0.00 - 0.03 X10*3/uL [facility] Lymphocytes Absolute Auto 2.5 1.2 - 4.9 X10*3/uL [facility] Monocytes Absolute Auto 1.6(H) 0.1 - 1.2 X10*3/uL [facility] Eosinophils Absolute Auto 0.2 0.0 - 0.4 X10*3/uL [facility] Basophils Absolute Auto 0.1 0.0 - 0.2 X10*3/uL [facility] NRBC Abs Auto 0.000 0.0 - 0.012 X10*3/uL [facility] Blood Venous blood specimen / Unknown 09/29/2025 8:38 AM EST 09/29/2025 8:38 AM EST us Asuncion Bailey MD LAB BLOOD ORDERABLES Jame corbin Result - Final [facility] [address] [place] [phone] * (ABNORMAL) TSH (09/29/2025 8:38 AM EST) Only the most recent of2 resultswithin the time period is included. Thyroid Stimulating Hormone 42.32(H) 0.32 - 4.0 uIU/mL [facility] Comment:Note: A sustained TS H level above 2.5 uIU/mL may warrant further investigation. TSH 3rd Generation ([facility]) 09/29/2025 8:38 AM EST 09/29/2025 8:38 AM EST us Generic External Data Provider LAB BLOOD ORDERAB LES Final Result Performing Organization Address City/[facility]/ZIP Co de Phone Number [facility] [address] [place] [phone] * T4, Free (09/29/2025 8:38 AM EST) Only the most recent of2 resultswithin the time period is included. Free T4 (Free Thyroxine) 0.85 0.71 - 1.85 ng/dL [facility] 09/29/2025 8:38 AM EST 09/29/2025 8:38 AM EST us Generic External Data Provider LAB BLOOD ORDERAB LES Final Result Performing Organization Address [facility] Co de Phone Number [facility] [address] [place] [phone] * Lipase (09/29/2025 8:38 AM EST) Lipase 23 8 - 78 U/L [facility] Blood Venous blood specimen / Unknown 09/29/2025 8:38 AM EST 09/29/2025 8:38 AM EST us Asuncion Bailey MD LAB BLOOD ORDERABLES Fin al Result Performing Organization Address [facility]/ZIP Co de Phone Number [facility] [address] [place] [phone] * Amylase (09/29/2025 8:38 AM EST) Amylase 43 28 - 100 U/L [facility] Blood Venous blood specimen / Unknown 09/29/2025 8:38 AM EST 09/29/2025 8:38 AM EST us Asuncion Bailey MD LAB BLOOD ORDERABLES Fin al Result [facility] [address] [place] [phone] * XR Chest 2 Views (09/29/2025 8:14 AM EST) Only the most recent of2 resultswithin the time period is included. Anatomical Region Laterality Modality Chest Radiographic Rosaura ging 09/29/2025 8:14 AM EST Narrative 09/29/2025 8:37 AM EST [address] [address] XRay Report Signed Patient: Tisha Ruiz MR#: [id number] 61 : 1970 Acct:[id number] Age/Sex: 55 / F ADM Date: 09/29/25 Loc: [facility] Attending Dr: Asuncion Bailey MD Ordering Physician: Asuncion Bailey MD Date of Service: 09/29/25 Procedure(s): XR chest 2V Accession Number(s): [id number] cc: Asuncion Bailey MD Reason for Exam: left sided pleural effusion fu EXAMINATION: XR CHEST CLINICAL INFORMATION: left sided pleural effusion fu COMPARISON: September 16, 2025 TECHNIQUE: PA and lateral views. FINDINGS: Horizontally oriented opacity left lower hemithorax resulting in blunting of the costophrenic angle. No pneumothorax. Pulmonary reticular pattern. Hyperinflated lungs. Cardiomediastinal silhouette size is normal. Multilevel spondylosis. XR/XR chest 2V IMPRESSION: Left-sided pleural effusion, small to moderate volume. Persistent/no gross change. Electronically signed by: Franki Fulton MD 09/29/2025 08:34 AM EST Dictated By: Franki Dubon MD Signed By: <Electronically signed by Franki Nixon MD in OV> 09/29/2534 DD/ 3 TD/TT: 09/29/25825 Feather Trimmer: Procedure Note Donotuseinterpreter, Image - 09/29/[address] [address] XRay Report Signed Patient: Ayanna RuiznMR#: [id number] 61 : 1970Acct:[id number] Age/Sex: 55 / FADM Date: 09/29/25 Loc: HO.XRAY Attending Dr: Asuncion Bailey MD Ordering Physician: Asuncion Bailey MD Date of Service: 09/29/25 Procedure(s): XR chest 2V Accession Number(s): [id number] cc: Asuncion Bailey MD Reason for Exam: left sided pleural effusion fu EXAMINATION: XR CHEST CLINICAL INFORMATION: left sided pleural effusion fu COMPARISON: September 16, 2025 TECHNIQUE: PA and lateral views. FINDINGS: Horizontally oriented opacity left lower hemithorax resulting in blunting of the costophrenic angle. No pneumothorax. Pulmonary reticular pattern. Hyperinflated lungs. Cardiomediastinal silhouette size is normal. Multilevel spondylosis. XR/XR chest 2V IMPRESSION: Left-sided pleural effusion, small to moderate volume. Persistent/no gross change. Electronically signed by: Franki Fulton MD 09/29/2025 08:34 AM EST Dictated By: Franki Dubon MD Signed By: <Electronically signed by Franki Nixon MDin OV> 09/29/2534 DD/ 3 TD/TT: 09/29/25825 Feather Trimmer: Asuncion Bailey MD IMG XR PROCEDURES Edited Result - Final * Culture, Urine, Routine (09/21/2025 1:00 AM EST) Only the most recent of2 resultswithin the time period is included. Urine Urine specimen obtained by clean catch procedure / Unknown 09/21/2025 1:00 AM EST 09/21/2025 11:13 AM EST Comment:UACC Narrative [facility] - 09/23/2025 7:30 AM EST Escherichia coli Quant 50,000 to 100,000 cfu/mL Escherichia coli: Ampicillin >=32(R) Escherichia coli: Cefazolin (Urine) 2(S) Escherichia coli: Cefepime <=0.12(S) Escherichia coli: Ceftriaxone <=0.25(S) Escherichia coli: Ciprofloxacin <=0.06(S) Escherichia coli: Gentamicin <=1(S) Escherichia coli: Nitrofurantoin 32(S) Escherichia coli: Trimethoprim/Sulfamethoxazole <=20(S) Specimen Source: Urine clean catch Asuncion Bailey MD LAB MICROBIOLOGY - GENER AL ORDERABLES Final Result [facility] [address] [place] [address] [phone] * POCT Urinalysis (09/20/2025 12:00 PM EST) [...] Media Lot # [id number] Lot# Expiration Date , Urine (Urine, Random) 09/20/2025 12:00 PM EST us Asuncion Bailey MD POINT OF CARE TEST ENTER /EDIT ORDERABLES Final Result * CT Abdomen Pelvis w/ Contrast (09/16/2025 11:32 AM EST) Anatomical Region Laterality Modality Body, Pelvis, Abdomen Computed T omography 09/16/2025 11:3 2 AM EST Narrative 09/16/2025 12:00 PM EST [place] [address] CT Scan Report Signed Patient: Tisha Ruiz MR#: [id number] 61 : 1970 Acct:[id number] Age/Sex: 55 / F ADM Date: 09/16/25 Loc: HO.ED Attending Dr: Ordering Physician: Teo Mazariegos DO Date of Service: 09/16/25 Procedure(s): CT abdomen pelvis w IV con Accession Number(s): [id number] cc: Linda Murphy DO; Teo Mazariegos DO Report Number: [id number]: Total DLP = 628.00 mGy-cm Reason for [...] 09/16/25 1157 DD/ 1132 TD/TT: 09/16/25 1145 Feather Trimmer: Procedure Note Donotuseinterpreter, Image - 09/16/[address] [address] [address] Scan Report Signed Patient: Ayanna RuiznMR#: [id number] 61 : 1970Acct:[id number] Age/Sex: 55 / FADM Date: 09/16/25 Loc: HO.ED Attending Dr: Ordering Physician: Teo Mazariegos DO Date of Service: 09/16/25 Procedure(s): CT abdomen pelvis w IV con Accession Number(s): [id number] cc: RadhadillonelianLinda A DO; WadeTeo last DO Report Number: [id number]: Total DLP = 628.00 mGy-cm Reason for [...] Franki Fulton MD 09/16/2025 11:57 AM EST RP Dictated By: Franki Dubon MD Signed By: <Electronically signed by Franki Nixon MDin OV> 09/16/25 1157 DD/ 1132 TD/TT: 09/16/25 1145 Feather Trimmer: [facility] External Provider IMG CT PROCEDURES Final Result * (ABNORMAL) Urinalysis, Complete, with Reflex to Culture (09/16/2025 9:34 AM EST) Color Urine Yellow [facility] Appearance Urine Cloudy [facility] PH 7.0 5.0 - 9.0 [facility] Glucose Urine UA Negative Negative mg/dL [facility] Urine Blood Negative Negative [facility] Specific [place] - Urine <=1.005 1.005 - 1.025 [facility] Urine Protein Negative Neg-Trace mg/dL [facility] Urine Ketones Negative Negative mg/dL [facility] Nitrite Urine Positive(A) Negative [facility] Leukocyte Esterase Urine Trace(A) Negative [facility] RBC Urine 0-2 0 - 2 /HPF [facility] Urine WBC 6-10(A) 0 - 5 /HPF [facility] Urine Squamous Epithelial Cell 11-20 0 - 2 /HPF [facility] Urine Bacteria 4+ None Seen [facility] Hyaline Casts, Urine 0-2 0 - 2 /LPF [facility] 09/16/2025 9:34 AM EST 09/16/2025 9:39 AM EST Narrative [facility] - 09/16/2025 9:54 AM EST [id number], Clean Catch us Generic External Data Provider LAB URINE ORDERAB LES Final Result Performing Organization Address [facility] Co de Phone Number [facility] [address] [place] [phone] * Magnesium (09/16/2025 9:34 AM EST) Magnesium 1.7 1.6 - 2.6 mg/dL [facility] 09/16/2025 9:34 AM EST 09/16/2025 9:39 AM EST us Generic External Data Provider LAB BLOOD ORDERAB LES Final Result Performing Organization Address [facility] de Phone Number [facility] [address] [place] [phone] * Hepatic Function Panel (09/16/2025 9:34 AM EST) Bilirubin, Direct 0.1 0.0 - 0.5 mg/dL [facility] 09/16/2025 9:34 AM EST 09/16/2025 9:39 AM EST us Generic External Data Provider LAB BLOOD ORDERAB LES Final Result Performing Organization Address [facility] Co de Phone Number [facility] [address] [place] [phone] * (ABNORMAL) Comprehensive Metabolic Panel (09/16/2025 9:34 AM EST) Sodium 136 135 - 145 mmol/L [facility] Potassium 4.2 3.3 - 5.1 mmol/L [facility] Chloride 97 96 - 108 mmol/L [facility] Carbon Dioxide 31(H) 22 - 29 mmol/L [facility] Anion Gap 12 12 - 20 [facility] Urea Nitrogen (BUN) 9 9 - 16 mg/dL [facility] Creatinine, Serum 1.14 0.5 - 1.4 mg/dL [facility] Creatinine Clr Calc Pharmacy 67.4 [facility] Comment:Provided height and weight: 170.18 cm,94.8 kg.eGFR (calculated from the MDRD study equation) and eCrCl(calculated from the Cockcroft-Gault equation) are based ondifferent parameters and may not yield comparable results.If eCrCl result is absurd, please check patient'sheight/weight. Estimated Glomerular Filt Rate 50 [facility] Comment:Chronic Kidney Disea se: Estimated GFR < 60 mL/min/1.98h2Yhomcr Kidney Disease: Estimated GFR < 15 mL/min/1.73m2 Glucose 293(H) 60 - 115 mg/dL [facility] Calcium 9.1 8.4 - 10.2 mg/dL [facility] Bilirubin, Total 0.3 0.0 - 1.0 mg/dL [facility] Aspartate Amino Transferase 23 5 - 31 U/L [facility] Alanine Aminotransferase 28 0 - 31 U/L [facility] Total Protein 8.0 6.5 - 8.0 g/dL [facility] Albumin Level 4.4 3.5 - 5.0 g/dL [facility] Alkaline Phosphatase 124(H) 39 - 117 U/L [facility] 09/16/2025 9:34 AM EST 09/16/2025 9:39 AM EST us Generic External Data Provider LAB BLOOD ORDERAB LES Final Result [facility] [address] [place] [phone] * (ABNORMAL) Glucose, Whole Blood (09/16/2025 9:15 AM EST) Glucose, Whole Blood 333(H) 60 - 115 mg/dL [facility] Comment:METER #: [id number] 09/16/2025 9:15 AM EST 09/16/2025 9:19 AM EST us Generic External Data Provider LAB BLOOD ORDERAB LES Final Result [facility] [address] [place] [phone] * (ABNORMAL) Thyroglobulin, LC/MS/MS (09/15/2025 11:17 AM EST) Pathologist [facility] Thyroglobulin, LC/MS/MS 0.2(A) ng/mL [facility] Comment:Reference Range: Int act Thyroid 2.8-40.9 Athyrotic <0.1 Note: Abnormal flagging is based on the reference interval for patients with intact thyroid.This test was performed using the [employer] Coulterchemiluminescent method. Values obtained fromdifferent assay methods cannot be usedinterchangeably. Thyroglobulin levels, regardlessof value, should not be interpreted as absoluteevidence of the presence or absence of disease. Thyroglobulin Comment See Below [facility] Comment:Thyroglobulin antibo dies (TGAB) interfere withthyroglobulin (TG) assays; therefore, TGAB assayshould always be performed in conjunction with aTG assay.For additional information, please refer tohttp://education.Calm/faq/TMX652(This link is being provided for informational/educational purposes only.)THIS TEST WAS PERFORMED AT:[email or web address] [place] [phone] DURANT MD 09/15/2025 11:1 7 AM EST 09/15/2025 11:17 AM EST us Generic External Data Provider LAB BLOOD ORDERAB LES Final Result [facility] [address] [place] [address] [phone] * (ABNORMAL) Thyroblobulin, Tumor Marker w/Reflex (09/15/2025 11:17 AM EST) Thyroglobulin Antibody <1 <=1 IU/mL [facility] Comment:This Thyroglobulin a ntibody test was performedusing the [employer] Chemiluminescent method.Values obtained from different assay methods cannot beused interchangeably. Thyroglobulin antibody levels,regardless of value, should not be interpreted asabsolute evidence of the presence or absence ofdisease. Thyroglobulin, LC/MS/MS TNP [facility] Thyroglobulin Level 0.1(A) ng/mL [facility] Comment:Reference Range: Ath yrotic: <0.1 ng/mLReference range applies to differentiated thyroidcancer patients following treatment. The presence ofmeasurable thyroglobulin indicates the presence ofthyroglobulin-producing thyroid tissue. Clinicalcorrelation is advised.This Thyroglobulin test was performed using theUpshot Chemiluminescent method. Valuesobtained from different assay methods cannot beused interchangeably. Thyroglobulin levels, regardlessof value, should not be interpreted as absoluteevidence of the presence or absence of disease.THIS TEST WAS PERFORMED AT:[employer] [id number] [place] [phone] ROJAS MD,PHD 09/15/2025 11:1 7 AM EST 09/15/2025 11:17 AM EST us Generic External Data Provider LAB BLOOD ORDERAB LES Final Result Performing Organization Address City/[facility]/ZIP Co de Phone Number [facility] [address] [place] [phone] * Thyroglobulin Antibodies (09/15/2025 11:17 AM EST) Thyroglobulin Antibodies <1 < or = 1 IU/mL [facility] Comment:THIS TEST WAS PERFOR MED AT:[email or web address] [place] [phone] DURANT MD 09/15/2025 11:1 7 AM EST 09/15/2025 11:17 AM EST us Generic External Data Provider LAB BLOOD ORDERAB LES Final Result Performing Organization Address [facility]/ZIP Co de Phone Number [facility] [address] [place] [phone] * Vitamin B12 (Cobalamin) and Folate Panel, Serum (07/20/2025 12:57 PM EDT) Vitamin B12 377 200 - 900 pg/mL [facility] Comment:NORMAL 200-900 PG/ML INDETERMINATE 160-199 PG/ML DEFICIENT < 160 PG/ML Folate 14.2 > or = 4.0 ng/mL [facility] Comment:Reference Values:> o r = [...] Final R esult Performing Organization Address City/[facility]/ZIP Co de Phone Number [facility] [address] [place] [phone] * Iron And Total Iron Binding Capacity (07/20/2025 12:57 PM EDT) Iron 59 30 - 160 mcg/dL [facility] Comment:Slight Hemolysis.Int erpret result with caution. Total Iron Binding Capacity 303 228 - 428 mcg/dL [facility] Percent Iron Saturation 19 15 - 50 % [facility] Unsaturated Iron Binding 244 ug/dL [facility] Blood Venous blood specimen / Unknown 07/20/2025 12:57 PM EDT 07/20/2025 12:57 PM EDT Linda Katherine LAB BLOOD ORDERABLES Final R esult Performing Organization Address [facility] Co de Phone Number [facility] [address] [place] [phone] * Alpha-Fetoprotein, Tumor Marker (07/20/2025 12:57 PM EDT) Alpha Fetoprotein 2.7 ng/mL [facility] Comment:Reference Range: <6. 1The use of AFP as a tumor marker in females is not recommended.This test was performed using the [employer] Coulterchemiluminescent method. Values obtained fromdifferent assay methods cannot be usedinterchangeably. AFP levels, regardless ofvalue, should not be interpreted as absoluteevidence of the presence or absence of disease.THIS TEST WAS PERFORMED AT:[email or web address] [place] [phone] DURANT MD Blood Venous blood specimen / Unknown 07/20/2025 12:57 PM EDT 07/20/2025 12:57 PM EDT Linda Murphy DO LAB BLOOD ORDERABLES Final R esult Performing Organization Address City/[facility] Co de Phone Number [facility] [address] [place] [phone] * (ABNORMAL) Partial Thromboplastin Time, Activated (APTT) (07/20/2025 12:57 PM EDT) Partial Thromboplastin Time 40.1(H) 26.7 - 34.1 SEC [facility] Blood Venous blood specimen / Unknown 07/20/2025 12:57 PM EDT 07/20/2025 12:57 PM EDT Linda Murphy DO LAB BLOOD ORDERABLES Final R esult Performing Organization Address [facility] Co de Phone Number [facility] [address] [place] [phone] * (ABNORMAL) Prothrombin Time-INR (07/20/2025 12:57 PM EDT) Prothrombin Time 10.6(L) 10.9 - 12.4 SEC [facility] INTERNATIONAL NORM RATIO 0.9 0.9 - 1.1 [facility] Comment:INTERNATIONAL NORMAL IZED RATIO (INR) [...] EDT 07/20/2025 12:57 PM EDT Linda Murphy [employer] LAB BLOOD ORDERABLES Final R esult Performing Organization Address [facility] Co de Phone Number [facility] [address] [place] [phone] * Ferritin (07/20/2025 12:57 PM EDT) Ferritin 58 10 - 250 ng/mL [facility] Blood Venous blood specimen / Unknown 07/20/2025 12:57 PM EDT 07/20/2025 12:57 PM EDT Linda Garciamario LAB BLOOD ORDERABLES Final R esult Performing Organization Address [facility] Co de Phone Number [facility] [address] [place] [phone] * (ABNORMAL) POCT Hgb A1c (07/20/2025 [...] 11:11 AM EDT) Creatinine, Urine 52.62 mg/dL [facility] Microalbumin Urine 11.0 mg/L [facility] Microalbum Creatinine Ratio Ur 20.9 <30 ug/mg cr [facility] Comment:Albumin/Creatinine R atio Reference Ranges: Normal: < 30 ug/mg creatinine Microalbuminuria: 30 - 300 ug/mg creatinineClinical Albuminuria: > 300 ug/mg creatinine Urine (Urine, Random) 04/26/2025 11:11 AM EDT 04/26/2025 12:56 PM EDT Linda Murphy DO LAB URINE ORDERABLES Final R esult [facility] [address] [place] [phone] * Hepatitis C Antibody with Reflex to HCV, RNA, Quantitative, Real-Time PCR (04/26/2025 11:11 AM EDT) Hepatitis C Antibody Nonreactive Nonreactive [facility] Comment:Antibodies to HCV no t detected; does not exclude early acuteHCV infection. Blood Venous blood specimen / Unknown 04/26/2025 11:11 AM EDT 04/26/2025 12:56 PM EDT Linda Katherine DO LAB BLOOD ORDERABLES Final R esult Performing Organization Address City/[facility]/ZIP Co de Phone Number [facility] [address] [place] [phone] * HIV-1/2 Antigen and Antibodies, Fourth Generation, with Reflexes (04/26/2025 11:11 AM EDT) HIV AB/AG Nonreactive Nonreactive [facility] Comment:HIV-1 p24 Ag and/or HIV-1/HIV-2 Ab not detected.A test result that is nonreactive does not exclude thepossibility of exposure to or infection with HIV-1 and/orHIV-2. Nonreactive results in this assay for individualswith prior exposure to HIV-1 and/or HIV-2 may be due toantigen and antibody levels that are below the limit ofdetection of this assay.The [employer] HIV Ag/Ab Combo assay result andsupplemental assay results should be interpreted inconjunction with the patient's clinical presentation,history and other laboratory results. If the results areinconsistent with clinical evidence, additional testing issuggested to confirm the result. Blood Venous blood specimen / Unknown 04/26/2025 11:11 AM EDT 04/26/2025 12:56 PM EDT Linda Murphy DO LAB BLOOD ORDERABLES Final R esult Performing Organization Address City/[facility]/ZIP Co de Phone Number [facility] [address] [place] [phone] [phone] * (ABNORMAL) Lipid Panel, Standard (04/26/2025 11:11 AM EDT) Triglycerides 161(H) <150 mg/dL [facility] Comment:Desirable Triglyceri de: less than 150 mg/dLBorderline High Triglyceride 150-199 mg/dLHigh Triglyceride: 200-499 mg/dLVery High Triglyceride: greater than or equal to 5OO mg/dL Cholesterol 139 <200 mg/dL [facility] Comment:Desirable Cholestero l: less than 200 mg/dLBorderline High Cholesterol: 200-239 mg/dLHigh Cholesterol: greater than 239 mg/dL LDL Cholesterol Calculated 64 <100 mg/dL [facility] Comment:Desirable LDL: less than 100 mg/dLNear Optimal/Above Optimal LDL: 110- 129 mg/dLBorderline High LDL: 130-159 mg/dLHigh LDL: 160-189 mg/dLVery High LDL: greater than or equal to 190 mg/dL HDL Cholesterol 43 >40 mg/dL [facility] Comment:Desirable HDL: great er than 40 mg/dL Note: This HDL assay may give artificially low results in patients with liver disease. Blood Venous blood specimen / Unknown 04/26/2025 11:11 AM EDT 04/26/2025 12:56 PM EDT us Linda Murphy DO LAB BLOOD ORDERABLES Final R esult [facility] [address], [place] [phone] * Referral to Podiatry (03/04/2025) us Asuncion Bailey MD OUTPATIENT REFERRAL [facility]INO Final Result * HPV E6/E7 RFLX LUIS 16 18/45 (05/21/2022 3:45 PM EDT) HPV mRNA E6/E7 rflx Not Detected Not Detected [facility] Comment: Methodology: [employer]-Mediated Amplification This assay detects E6/E7 viral messenger RNA (mRNA) from 14 high-risk HPV types (16,18,31,33,35,39,45,51,52,56,58,59,66,68). Cervical sources are required for HPV testing. If a vaginal source from a patient who has had a total hysterectomy with removal of cervix was submitted, please contact the testing laboratory for alternative testing options. For additional information, please refer to http://education.Calm/faq/UBL344f5 (This link if provided for information/ educational purposes only.) THIS TEST WAS PERFORMED AT: [email or web address] [address] [place] [address],[place] [address] VALERIA DURANT MD 05/21/2022 3:45 PM EDT Fercho Palmer MD HISTORICAL/NON ORDERABLE LABS Fi nal Result [facility] [address] [place] [address] * Pap Smear (02/15/2022 12:00 AM EDT) Swab Linda Murphy DO LAB CYTOLOGY ORDERABLES Ce l Result Performing Organization Address City/[facility]/ZIP Co de Phone Number [facility] [address] [place] [address], [place] [phone] * DIGITAL BILATERAL SCREEN 1 (04/01/2019 2:56 [...] or Most Recently Relevant to Health Maintenance Additional Health Concerns Active Problems Noted Date Diagnosed Date Help patients manage their type 2 diabetes 09/28 Weekly blood pressure task 09/28/2025 Help patients manage their type 2 diabetes 09/28 Patient has chronic kidney disease 09/28/2025 Weekly blood pressure task 09/28/2025 Patient has chronic kidney disease 09/28/2025 Insurance [employer] < 65 [employer] Care Teams Hose Tester Relationship Specialty Start Date End Date Linda Murphy DO [address] [place] [address] PCP - General Family Medicine 11/24/12
--- OUTSIDE RECORDS SUMMARY | 2025-09-29 15:33 | XMS_ITS | Encounter Summary ---
Author Organization [employer] Address [address] [facility] 7[address] [place] [address] Care Team Providers Care Transplant Immunologist Name Role Phone Linda Murphy DO Primary Care Provider [phone] Neri Yang PharmD Unavailable Unavail able Antionette Murphy PharmD Unavailable Reason for Visit * Reason Onset Date Comments Results 10/08/2023 Encounter Details Date Type Department Care Team ([facility] st Contact Info) Description 10/08/2023 Telephone [facility] [address] [place] [address] Linda Murphy DO [address] [place], [place] [phone] Results Social History Tobacco Use Types Packs/Day [...] yesterday 10/07/2023 but was transferred to the [facility]. documented in this encounter Plan of Treatment Upcoming Encounters Date Type Department Care Team (Late st Contact Info) Description 10/01/2025 9:00 AM EST Office Visit [facility] [address] [place] [phone] Linda Murphy DO [address] [place] [address] documented as of this encounter Goals Goal [...] documented as of this encounter Care Teams Transplant Immunologist Relationship Specialty Start Date End Date Linda Murphy DO [address] [place] [phone] PCP - General Family Medicine 11/24/12 Neri Yang, PharmD [address] [place] [address] Pharmacist Internal Medicine 11/23/22 10/17/23 Antionette Murphy, EricD [address] [place] [address] Pharmacist Internal Medicine 07/15/24 02/25/25 documented as of this encounter
--- OUTSIDE RECORDS SUMMARY | 2025-09-29 15:33 | XMS_ITS | Encounter Summary ---
Author Organization [employer] Address [address] [facility] [address] [place] [address] Care Team Providers Care Telephonic Case Manager Name Role Phone Linda Murphy DO Primary Care Provider [phone] Antionette Murphy PharmD Unavailable [phone] Reason for Visit * Reason Onset Date Comments Medication Question 11/13/2023 Encounter Details Date Type Department Care Team ([facility] st Contact Info) Description 11/13/2023 Telephone [facility] [address] [place] [phone] Linda Murphy DO [address] [place] [address] Medication Question Social History Tobacco Use Types [...] 11/08 Physical appointment. Please contact pt at [phone] documented in this encounter Plan of Treatment Upcoming Encounters Date Type Department Care Team (Late st Contact Info) Description 10/01/2025 9:00 AM EST Office Visit [facility] [address] [place] [phone] Linda Murphy DO [address] [place] [phone] documented as of this encounter Goals Goal [...] documented as of this encounter Care Teams Telephonic Case Manager Relationship Specialty Start Date End Date Linda Murphy DO [address] [place] [phone] PCP - General Family Medicine 11/24/12 Antionette Murphy, Kaiden [address] [place] [phone] Pharmacist Internal Medicine 07/15/24 02/25/25 documented as of this encounter
--- OUTSIDE RECORDS SUMMARY | 2025-09-29 15:33 | XMS_ITS | Encounter Summary ---
Author Organization [employer] Address [address] [facility] [address] [place] [address] Care Team Providers Care Data Warehouse Administrator Name Role Phone Linda Murphy DO Primary Care Provider [phone] Reason for Visit * Reason Comments Med Refill Encounter Details Date Type Department Care Team ([facility] st Contact Info) Description 09/26/2025 Refill [facility] [address] [place] [address] Linda Murphy DO [address] [place] [address] Type 2 diabetes mellitus without complications (HCC) Social History Tobacco Use Types Packs/Day [...] Description 10/01/2025 9:00 AM EST Office Visit [facility] [address] [place] [phone] Linda Murphy DO [address] [place] [phone] documented as of this encounter Goals Goal Patient Goal Type Associated Problems Recent Progress Patient-Stated? Author Hemoglobin A1c < 7 Result Component 8.1(07/20/2025 11:19 AM EDT) No Neri Yang, PharmD documented as of this encounter Visit Diagnoses Diagnosis Type 2 diabetes mellitus without complications (HCC) documented in this encounter Additional Health Concerns Assessment Noted Time PHQ-9 Depression Total Score: 0 07/20/20 25 11:20 AM EDT documented as of this encounter Care Teams Data Warehouse Administrator Relationship Specialty Start Date End Date Linda Murphy DO [address] [place] [phone] PCP - General Family Medicine 11/24/12 documented as of this encounter
--- OUTSIDE RECORDS SUMMARY | 2025-09-29 15:33 | XMS_ITS | Encounter Summary ---
Author Organization [employer] Address [address] [facility] 7t [place] [address] Care Team Providers Care Ssn/Ssbn Assistant Navigator Name Role Phone Linda Murphy DO Primary Care Provider [phone] DelNeri zavala PharmD Unavailable Unavail able Antionette Murphy PharmD Unavailable Reason for Visit * Reason Onset Date Comments Letter for School/Work 03/07/2023 Encounter Details Date Type Department Care Team ([facility] st Contact Info) Description 03/07/2023 Telephone [facility] MEDICINE [address] [place] [address] Linda Murphy DO [address] [place] [address] Letter for School/Work Social History Tobacco Use [...] mailed due to COVID Please contact at [phone] documented in this encounter Plan of Treatment Upcoming Encounters Date Type Department Care Team (Late st Contact Info) Description 10/01/2025 9:00 AM EST Office Visit [facility] MED[facility]INE [address] [place] [address] Linda Murphy DO [address] [place] [address] documented as of this encounter Goals Goal [...] documented as of this encounter Care Teams Ssn/Ssbn Assistant Navigator Relationship Specialty Start Date End Date Linda Murphy DO [address] [place] [address] PCP - General Family Medicine 11/24/12 Neri Yang, PharmD [address] [place] [address] Pharmacist Internal Medicine 11/23/22 10/17/23 Antionette Murphy PharmD [address] [place] [phone] Pharmacist Internal Medicine 07/15/24 02/25/25 documented as of this encounter
--- OUTSIDE RECORDS SUMMARY | 2025-09-29 15:33 | XMS_ITS | Encounter Summary ---
Author Organization [employer] Address [address] [place] [address] 7t [place] [address] Care Team Providers Care Manager Academic Name Role Phone Linda Murphy DO Primary Care Provider DelNeri zavala PharmD Unavailable Unavail able Antionette Murphy PharmD Unavailable Reason for Visit * Reason Comments Med Refill Encounter Details Date Type Department Care Team (Late st Contact Info) Description 07/08/2023 Refill [facility] MEDICINE [address] [place] [address] Linda Murphy DO 230 [place] [address] Pain Social History Tobacco Use Types Packs/Day [...] Description 10/01/2025 9:00 AM EST Office Visit [facility] MEDICINE 230 [place] [address] Linda Murphy DO [address] [place] [address] documented as of this encounter Goals Goal [...] as of this encounter Care Teams Manager Academic Relationship Specialty Start Date End Date Linda Murphy DO [address] [place] [address] PCP - General Family Medicine 11/24/12 Neri Yang, PharmD [address] [place] [address] Pharmacist Internal Medicine 11/23/22 10/17/23 Antionette Murphy PharmD [address] [place] [address] Pharmacist Internal Medicine 07/15/24 02/25/25 documented as of this encounter
--- OUTSIDE RECORDS SUMMARY | 2025-09-29 15:33 | XMS_ITS | Encounter Summary ---
Author Organization [employer] Address [address] [facility] [address] 7t [place] [address] Care Team Providers Care Advertising Clerk Name Role Phone Linda Murphy DO Primary Care Provider [phone] Encounter Details Date Type Department Care Team ([facility] Contact Info) Description 09/29/2025 Orders Only [facility] MEDICINE [address] [place] [address] Asuncion Bailey MD [address] [place] [address] Social History Tobacco Use Types Packs/Day Years [...] your housing situation today? I have christie blnac 08/26/[address] you li [...] Description 10/01/2025 9:00 AM EST Office Visit [facility] MEDICINE [address] [place] [address] Linda Murphy DO [address] [place], [place] [phone] documented as of this encounter Goals Goal Patient Goal Type Associated Problems Recent Progress Patient-Stated? Author Hemoglobin A1c < 7 Result Component 8.1( 11:19 AM EDT) No Neri Yang, PharmD Help patients manage their type 2 diabetes Care Plan Help patients manage their type 2 diabetes No Janette Ramires MA Weekly blood pressure task Care Plan Weekly blood pressure task No Janette Ramires MA Help patients manage their type 2 diabetes Care Plan Help patients manage their type 2 diabetes No Janette Ramires MA Patient has chronic kidney disease Care Plan Patient has chronic kidney disease No Janette Ramires MA Weekly blood pressure task Care Plan Weekly blood pressure task No Janette Ramires MA Patient has chronic kidney disease Care Plan Patient has chronic kidney disease No Janette Ramires MA documented as of this encounter Procedures Procedure Name Priority Date/Time Associated Diagnosis Comments SLIDE REVIEW Routine 09/29/2025 8:38 AM EST TSH Routine 09/29/2025 8:38 AM EST T4, FREE Routine 09/29/2025 8:38 AM EST documented in this encounter Results * T4, Free (09/29/2025 8:38 AM EST) Free T4 (Free Thyroxine) 0.85 0.71 - 1.85 ng/dL [facility] 09/29/2025 8:38 AM EST 09/29/2025 8:38 AM EST us Generic External Data Provider LAB BLOOD ORDERAB LES Final Result Performing Organization Address [facility] Co de Phone Number [facility] [address] [place] [address] [phone] * (ABNORMAL) TSH (09/29/2025 8:38 AM EST) Thyroid Stimulating Hormone 42.32(H) 0.32 - 4.0 uIU/mL [facility] Comment:Note: A sustained TS H level above 2.5 uIU/mL may warrant further investigation. TSH 3rd Generation ([facility]) 09/29/2025 8:38 AM EST 09/29/2025 8:38 AM EST us Generic External Data Provider LAB BLOOD ORDERAB LES Final Result Performing Organization Address City/[facility]/ZIP Co de Phone Number [facility] [address] [place] [address] [phone] * Slide Review (09/29/2025 8:38 AM EST) Slide Review VERIFIED [facility] 09/29/2025 8:38 AM EST 09/29/2025 8:38 AM EST us Asuncion Bailey MD LAB BLOOD ORDERABLES Fin al Result [facility] [address] [place] [phone] documented in this encounter Visit Diagnoses Not on filedocumented in this encounter Additional Health Concerns Active Problems Noted Date Diagnosed Date Help patients manage their type 2 diabetes 09/28 Weekly blood pressure task 09/28/2025 Help patients manage their type 2 diabetes 09/28 Patient has chronic kidney disease 09/28/2025 Weekly blood pressure task 09/28/2025 Patient has chronic kidney disease 09/28/2025 Assessment Noted Time PHQ-9 Depression Total Score: 0 07/20/20 25 11:20 AM EDT documented as of this encounter Care Teams Advertising Clerk Relationship Specialty Start Date End Date Linda Murphy DO [address] [place] [address] PCP - General Family Medicine 11/24/12 documented as of this encounter
--- OUTSIDE RECORDS SUMMARY | 2025-09-29 15:33 | XMS_ITS | Encounter Summary ---
Author Organization [facility] Address [address] [facility] [address] [place] [phone] Phone Care Team Providers Care Glass Finisher Name Role Phone Linda Murphy DO Primary Care Provider Encounter Details Date Type Department Care Team (Late st Contact Info) Description 07/03/2024 Procedure Pass [facility], Ct Scan - [address] [address] Social History Tobacco Use Types Packs/Day Years [...] 3:17 PM EDT Antonia Beaulieu RN * [place] Suicide Severity Rating Scale (Screener/Recent Self-Report) Question [...] on filedocumented in this encounter Care Teams Glass Finisher Relationship Specialty Start Date End Date Linda Murphy DO [address] [place] [phone] PCP - General Family Medicine 07/03/24 documented as of this encounter Additional Source Comments The information contained in this document represents components of the legal health record. It is not the complete legal health record.[facility]
--- OUTSIDE RECORDS SUMMARY | 2025-09-29 15:33 | XMS_ITS | Encounter Summary ---
Author Organization [employer] Address 75 [facility] 7t [place] [address] Care Team Providers Care Embalmer Assistant Name Role Phone Linda Murphy DO Primary Care Provider [phone] Antionette Murphy PharmD Unavailable [phone] Reason for Visit * Reason Comments Med Refill Encounter Details Date Type Department Care Team ([facility] st Contact Info) Description 02/23/2024 Refill [facility] MEDICINE [address] [place] [address] Linda Murphy DO [address] [place] [address] Chronic obstructive pulmonary disease, unspecified COPD type [...] 9:00 AM EST Office Visit [facility] MEDICINE [address] [place] [address] Linda Murphy DO [address] [place] [address] documented as of this encounter Goals Goal [...] documented as of this encounter Care Teams Embalmer Assistant Relationship Specialty Start Date End Date Linda Murphy DO [address] [place] [address] [phone] PCP - General Family Medicine 11/24/12 Antionette Murphy PharmD [address] [place] [address] [phone] Pharmacist Internal Medicine 07/15/24 02/25/25 documented as of this encounter
--- OUTSIDE RECORDS SUMMARY | 2025-09-29 15:33 | XMS_ITS | Encounter Summary ---
Author Organization [employer] Address [address] [facility] 7t [place] [address] Care Team Providers Care Qa Analyst Name Role Phone Linda Murphy DO Primary Care Provider [phone] Antionette Murphy PharmD Unavailable [phone] Reason for Visit * Reason Comments Med Refill Encounter Details Date Type Department Care Team ([facility] st Contact Info) Description 11/24/2023 Refill [facility] MEDICINE [address] [place] [address] Linda Murphy DO [address] [place] [address] Social History Tobacco Use Types Packs/Day Years [...] 10/01/2025 9:00 AM EST Office Visit [facility] MEDICINE [address] [place] [address] Linda Murphy DO [address] [place] [address] documented as of this encounter Goals Goal [...] documented as of this encounter Care Teams Qa Analyst Relationship Specialty Start Date End Date Linda Murphy DO [address] [place] [phone] PCP - General Family Medicine 11/24/12 Antionette Murphy PharmD [address] [place] [address] Pharmacist Internal Medicine 07/15/24 02/25/25 documented as of this encounter
--- OUTSIDE RECORDS SUMMARY | 2025-09-29 15:33 | XMS_ITS | Encounter Summary ---
Author Organization [employer] Address [address] [facility] [address] 7t [place] [address] Care Team Providers Care Wind Farm Engineer Name Role Phone Linda Murphy DO Primary Care Provider [phone] Reason for Visit * Reason Comments Med Refill Encounter Details Date Type Department Care Team ([facility] st Contact Info) Description 07/14/2025 Refill [facility] MED & PEDS [address] [place] [address] Linda Murphy DO [address] [facility] [place] [address] Chronic bilateral low back pain without sciatica [...] 9:00 AM EST Office Visit [facility] MEDICINE 230 [place] [address] Linda Murphy DO [address] [place] [address] documented as of this encounter Goals Goal [...] documented as of this encounter Care Teams Wind Farm Engineer Relationship Specialty Start Date End Date Linda Murphy DO [address] [place] [address] PCP - General Family Medicine 11/24/12 documented as of this encounter
--- OUTSIDE RECORDS SUMMARY | 2025-09-29 15:33 | XMS_ITS | Clinical Summary ---
Author Organization [facility] Address [address] [address] Phone Care Team Providers Care Dental Equipment Technician Name Role Phone Linda Murphy DO [...] topic Medical Devices Not on file Insurance [facility] MEDICARE PART A & B [facility] ONE CARE MEDICARE REPLACEMENT [place] MEDICARE PART A & B [facility] ONE CARE MEDICARE REPLACEMENT [place] MEDICARE PART A & B [facility] ONE [facility] MEDICARE PART A & B [facility] ONE CARE MEDICARE REPL[place]EMENT [place] [address] [place] [address] MEDICARE PART A & B [facility] ONE CARE MEDICARE REPLACEMENT [facility] MEDICARE PART A & B [facility] ONE CARE MEDICARE REPLACEMENT Care Teams Dental Equipment Technician Relationship Specialty Start Date End Date Linda Murphy DO [address] [place] [phone] PCP - General Family Medicine 07/03/24 Additional Source Comments The information contained in this document represents components of the legal health record. It is not the complete legal health record.[facility]
--- OUTSIDE RECORDS SUMMARY | 2025-09-29 15:33 | XMS_ITS | Clinical Summary ---
Author Organization [facility] Address [address] [place] [address] Phone Care Team Providers Care Office Clerk Assistant Name Role Phone Linda Murphy DO Primary Care Provider [phone] Allergies No known active allergies Medications acetaminophen [...] diabetes mellitus ([facility] V24, [facility] V 28) 12/22/2024 Fatty liver 12/22/2024 Status post thyroidectomy 12/22/2024 Hx of papillary thyroid carcinoma 12/22/2024 GERD (gastroesophageal reflux disease) Chronic low back pain 12/22/2024 Leukocytosis 12/22/2024 Toenail avulsion 12/22/2024 Plantar callus 12/22/2024 Onychomycosis 12/22/2024 Encounters Date Type Department Care Team Description 08/31/2025 10:15 AM EDT Office Visit Orthopedic Surgery [facility] [address] [phone] Gutierrez Ruiz DPM Controlled type 2 diabetes with neuropathy ([facility] V24, [facility] V28) (Primary Dx); Metatarsalgia of [...] 10:15 AM EST Office Visit Orthopedic Surgery [facility] [address] [phone] Gutierrez Ruiz DPM [address] [address] Health Maintenance Due Date Last Done Comments [...] ID:ICO Type:Not on file Address: [address] [place] [address] Care Teams Office Clerk Assistant Relationship Specialty Start Date End Date Linda Murphy DO [address] [place], [place] PCP - General Internal Medicine 04/09/19
--- OUTSIDE RECORDS SUMMARY | 2025-09-29 15:33 | XMS_ITS | Encounter Summary ---
Author Organization [employer] Address [address] [facility] 7t [place] [address] Care Team Providers Care Pest Control Chemical Technician Name Role Phone Linda Murphy DO Primary Care Provider [phone] Reason for Visit * Reason Onset Date Comments Chart Prep 09/28/2025 Encounter Details Date Type Department Care Team ([facility] st Contact Info) Description 09/28/2025 Telephone [facility] MEDICINE [address] [place] [address] Linda Murphy DO 230 [place] [address] Chart Prep Social History Tobacco Use Types [...] Telephone Encounter - Janette Ramires MA - 09/28/2025 9:23 AM EST Chart Prep Labs: done Images: No Show Mammogram, US Abdomen reschedule 11/2025([facility]) Referrals: appointment pending Vaccines due: Covid, Flu, Hep A, and RSV Screenings: colonoscopy, mammogram, pap smear, and eye exam Overdue care gaps: A1c and Glucose documented in this encounter Plan of Treatment Upcoming Encounters Date Type Department Care Team (Late st Contact Info) Description 10/01/2025 9:00 AM EST Office Visit [facility] MEDICINE [address] [place] [address] Linda Murphy DO 230 [place] [address] documented as of this encounter Goals Goal [...] Care Plan Patient has chronic kidney disease Janette Michelle MA Weekly blood pressure task Care Plan Weekly blood pressure task No Janette Ramires MA Patient has chronic kidney disease Care Plan Patient has chronic kidney disease No Janette Ramires MA documented as of this encounter Visit Diagnoses [...] documented as of this encounter Care Teams Pest Control Chemical Technician Relationship Specialty Start Date End Date Linda Murphy DO [address] [place] [phone] PCP - General Family Medicine 11/24/12 documented as of this encounter
--- OUTSIDE RECORDS SUMMARY | 2025-09-29 15:33 | XMS_ITS | Encounter Summary ---
Author Organization [employer] Address [address] [facility] 7t [place] [address] Care Team Providers Care Stock Room Manager Name Role Phone Linda Murphy DO Primary Care Provider [phone] DelNeri zavala PharmD Unavailable Unavail able Antionette Murphy PharmD Unavailable [phone] Reason for Visit * Reason Onset Date Comments letter michael lopez 07/26/2023 Encounter Details Date Type Department Care Team (Late st Contact Info) Description 07/26/2023 Telephone [facility] MEDICINE [address] [place] [address] Linda Murphy DO [address] [place], [place] [phone] letter michael lopez Social History Tobacco Use [...] to Medical side. Please contact pt at [phone] documented in this encounter Plan of Treatment Upcoming Encounters Date Type Department Care Team (Late st Contact Info) Description 10/01/2025 9:00 AM EST Office Visit [facility] MEDICINE [address] [place] [address] Linda Murphy DO [address] [place] [address] documented as of this encounter Goals Goal [...] as of this encounter Care Teams Stock Room Manager Relationship Specialty Start Date End Date Linda Muprhy DO [address] [place] [address] PCP - General Family Medicine 11/24/12 Neri Yang, PharmD [address] [place] [address] Pharmacist Internal Medicine 11/23/22 10/17/23 Antionette Murphy PharmD [address] [place] [address] Pharmacist Internal Medicine 07/15/24 02/25/25 documented as of this encounter
--- OUTSIDE RECORDS SUMMARY | 2025-09-29 15:34 | XMS_ITS | Encounter Summary ---
Author Organization [employer] Address [address] [facility] 7t [place] [address] Care Team Providers Care Learning Facilitator Name Role Phone Linda Murphy DO Primary Care Provider [phone] Antionette Murphy PharmD Unavailable [phone] Reason for Visit * Reason Onset Date Comments Durable Medical Equipment 03/06/2024 Encounter Details Date Type Department Care Team ([facility] st Contact Info) Description 03/06/2024 Telephone [facility] MEDICINE [address] [place] [address] Linda Murphy DO [address] [place] [address] Durable Medical Equipment Social History Tobacco Use [...] 9:00 AM EST Office Visit [facility] MEDICINE [address] [place] [address] Linda Murphy DO [address] [place] [address] documented as of this encounter Goals Goal [...] as of this encounter Care Teams Learning Facilitator Relationship Specialty Start Date End Date Linda Murphy DO [address] [place] [address] PCP - General Family Medicine 11/24/12 Antionette Murphy, EricD [address] [place] [address] Pharmacist Internal Medicine 07/15/24 02/25/25 documented as of this encounter
--- OUTSIDE RECORDS SUMMARY | 2025-09-29 15:34 | XMS_ITS | Encounter Summary ---
Author Organization [employer] Address [address] [facility] [address] 7t [place] [address] Care Team Providers Care Health And Wellness Director Name Role Phone Linda Murphy DO Primary Care Provider [phone] Antionette Murphy PharmD Unavailable [phone] Reason for Visit * Reason Onset Date Comments Med Refill 12/18/2024 Encounter Details Date Type Department Care Team (Late st Contact Info) Description 12/18/2024 Refill [facility] & PEDS [address] [place] [address] Linda Murphy DO [address] [facility] [place] [address] Acute post-traumatic headache, not intractable; Chronic obstructive [...] Office Visit [facility] MEDICINE 230 [place] [address] Linda Murphy DO [address] [place] [address] documented as of this encounter Goals Goal [...] documented as of this encounter Care Teams Health And Wellness Director Relationship Specialty Start Date End Date Linda Murphy DO [address] [place] [address] [phone] PCP - General Family Medicine 11/24/12 Antionette Murphy PharmD [address] [place] [phone] Pharmacist Internal Medicine 07/15/24 02/25/25 documented as of this encounter
--- OUTSIDE RECORDS SUMMARY | 2025-09-29 15:34 | XMS_ITS | Encounter Summary ---
Author Organization [employer] Address [address] [facility] 7t [place] [address] Care Team Providers Care Cricket Coach Name Role Phone Linda Murphy DO Primary Care Provider [phone] Antionette Murphy PharmD Unavailable [phone] Reason for Visit * Reason Onset Date Comments Med Refill 12/18/2024 Encounter Details Date Type Department Care Team (Late st Contact Info) Description 12/18/2024 Refill [facility] [address] [place] [address] Linda Murphy DO 230 [place] [address] Social History Tobacco Use Types Packs/Day Years [...] Description 10/01/2025 9:00 AM EST Office Visit [facility] [address] [place] [address] Linda Murphy DO [address] [place] [address] documented as of this encounter Goals Goal [...] documented as of this encounter Care Teams Cricket Coach Relationship Specialty Start Date End Date Linda Murphy DO [address] [place] [phone] PCP - General Family Medicine 11/24/12 Antionette Murphy PharmD [address] [place] [phone] Pharmacist Internal Medicine 07/15/24 02/25/25 documented as of this encounter
--- OUTSIDE RECORDS SUMMARY | 2025-09-29 15:34 | XMS_ITS | Encounter Summary ---
Author Organization [employer] Address [address] [facility] [address] 7t [place] [address] Care Team Providers Care Equipment Operator Warehouse Name Role Phone Linda Murphy DO Primary Care Provider [phone] Antionette Murphy PharmD Unavailable [phone] Reason for Visit * Reason Comments Med Refill Encounter Details Date Type Department Care Team (Late st Contact Info) Description 02/11/2025 Refill [facility] MED & PEDS [address] [place] [address] Linda Murphy DO [address] [place] [address] Chronic low back pain, unspecified back pain [...] Description 10/01/2025 9:00 AM EST Office Visit [facility] MEDICINE [address] [place] [address] Linda Murphy DO [address] [place] [address] documented as of this encounter Goals Goal [...] documented as of this encounter Care Teams Equipment Operator Warehouse Relationship Specialty Start Date End Date Linda Murphy DO [address] [place] [address] PCP - General Family Medicine 1/14/13 Antionette Murphy, Kaiden [address] [place] [phone] Pharmacist Internal Medicine 07/15/24 02/25/25 documented as of this encounter
[2025-10-02 05:38] LABS: Alk.Phos Iso. Macrohepatic 0 % (<=0); Alk.Phos Isoenzymes Bone 32 % (28-66); Alk.Phos Isoenzymes Intest 0 % (1-24); Alk.Phos Isoenzymes Liver 68 % (25-69); Alk.Phos Isoenzymes Placental 0 % (<=0); Alk.Phos Isoenzymes Total 112 U/L (37-153)
== END 2025-09-29 08:06 | disposition home or self-care (01) ==
LOC: HO.XRAY 08:05
PROVIDERS: Student in an Organized Health Care Education/Training Program; PCP Internal Medicine; Visit Provider Internal Medicine
DX: Z13.89 Encounter for screening for other disorder (principal)
CPT/HCPCS: 36415; 71046; 82150; 83690; 84080; 84439; 84443; 85025

== ENCOUNTER → 2025-09-29 08:09 | Outpatient (BNV) | payer OTHER, SELFPAY | PROVIDERS: PCP Internal Medicine; Visit Provider Radiology Diagnostic Radiology | DX: Z46.59 Encounter for fitting and adjustment of other gastrointestinal appliance and device (principal) | CPT/HCPCS: 71046 ==

== ENCOUNTER 2025-10-01 10:15 | Inpatient (IN) | payer OTHER, SELFPAY ==
[2025-10-01] VITALS (15 sets, daily range): BP systolic 90–132; BP diastolic 43–71; PULSE 103–126; RESP 13–27; TEMP 36.9–39.3; O2SAT 26–98; BMI 34.0
--- NOTE | ~2025-10-01 | MR_ITS ---
CLINICAL HISTORY: L Adnexal Mass and Ileus MRI of the pelvis with and without intravenous contrast. Comparison: US/SR - US PELVIC AND TRANSVAGINAL - 10/02/25 07:45 EST US - US PELVIC AND TRANSVAGINAL - 10/01/25 19:[address]/[place]/SR - CT ABDOMEN PELVIS WITHOUT IV CONTRAST - 10/01/25 12:07 EST Findings: Multi locular bilateral adnexal peripherally enhancing high T2 intensity foci are present, measuring 85 mm oblique transverse on the left, and 15 mm transverse oblique on the right. The uterus is within normal limits. There is a peripherally enhancing high T2 intensity debris containing focus within the pouch of Fre[place] measuring 110 mm anteroposterior. Moderate diffuse fat stranding throughout the pelvis is present. Petty catheter within the urinary bladder is present. Visualized bowel loops and vasculature are normal in caliber. There is moderate thickening of the rectum. There is severe right and moderate left hydronephrosis as well as moderate bilateral ureteral dilatation extending into the pelvis. Visualized osseous structures are normal in appearance. IMPRESSION: 1. Vcdb-kbfyepv-hwrv-right adnexal lesions as described above, most suggestive of tubo-ovarian abscesses. Continued follow up is recommended to exclude underlying neoplasm. 2. Probable abscess within the pouch of Angel, Associated with secondary thickening of the rectum. Follow-up endoscopy is recommended to exclude underlying rectal neoplasm. 3. Gevxb-jfinweo-ghkg-left hydronephrosis secondary to distal ureteral compression. This document has been electronically signed by: Abdirahman Hogue MD on 10/03/2025 18:42:57
--- NOTE | ~2025-10-01 | US_ITS ---
CLINICAL HISTORY: Abnormal Uterine Bleeding, L Adnexal Mass US pelvis transabdominal and transvaginal Comparison: US/[place]/SR - US PELVIS TRANSABDOMINAL AND TRANSVAGINAL - 02/12/23 16:14 EDT Findings: Transabdominal scanning performed for overall anatomy. Transvaginal scanning performed for additional detail. Anteverted uterus is 9.8 cm length. Normal myometrium. Endometrium 5 mm thickness. Right ovary 2.8 x 2.1 x 2.6 cm. Left ovary 3.6 x 2.5 x 3.7 cm. Moderate pelvic free fluid. Examination terminated prematurely due to patient request. IMPRESSION: 1. Examination terminated prematurely during transvaginal exam due to patient request. No acute abnormality identified on transabdominal imaging. This document has been electronically signed by: Jia Ames MD on 10/01/2025 20:28:51
--- NOTE | ~2025-10-01 | XR_ITS ---
CLINICAL HISTORY: NGT PLacement 1 view chest x-ray Comparison: CR/NV/SR - XR CHEST 1 VIEW - 10/01/2025 02:03 PM EST Findings: NGT tip is within the gastric lumen. No consolidation or effusion. Heart size is normal. No acute fracture. IMPRESSION: 1. No acute findings. This document has been electronically signed by: Abdirahman Hogue MD on 10/03/2025 19:10:47
--- NOTE | ~2025-10-01 | CT_ITS ---
PROCEDURE: CT-GUIDED DRAINAGE, PERITONEAL ABSCESS CLINICAL INFORMATION: PELVIC ABCESS COMPARISON: Previous CT of the abdomen and pelvis most recent October 01, 2025, pelvic ultrasound October 01 and 2024 and pelvic MRI October 03, 2025 TECHNIQUE: Procedure and risks and benefits including bleeding, infection, and injury to adjacent bowel or organs are discussed with the patient and informed consent was obtained. The patient was positioned in the left decubitus position. Limited axial images through the pelvis were performed. The right buttock was prepped and draped in the usual sterile fashion. The skin and soft tissues were anesthetized with 1% lidocaine plain. Using a Chiba needle, access to the fluid collection in the pelvis was obtained. Over an 018 wire, a 6 [place] dilator was positioned in the collection. Over an 035 guidewire, 6 [place] dilator was exchanged for an 8.5 [place] drainage catheter. Catheter was attached to external bag drainage. 110-120 mL of cloudy slightly purulent appearing yellow fluid was removed. Specimen was sent for Gram stain, culture and cytology. Patient received Versed 0.5 mg and fentanyl 25 mcg intravenously during the procedure. Conscious sedation was provided by registered nurse with continuous hemodynamic monitoring. Total sedation time was [address] examination was performed using dose optimization techniques as appropriate, variously including the following: *Automated exposure control *Adjustment of mA and/or kV according to patient size (this includes techniques or standardized protocols for targeted exams where dose is matched to indication/reason for exam; i.e. extremities or head) *Use of iterative reconstruction technique DLP 215 mGY/cm FINDINGS: There is a fluid collection in the pelvis. This measures 9.2 x 6.7 cm in dimension. There is surrounding fat stranding. The left adnexa is prominent. There is dilatation of the visualized right lower renal collecting system. There is a Petty catheter in the bladder. There are small retroperitoneal lymph nodes. Final images demonstrate satisfactory position of drainage catheter with interval decrease in pelvic fluid collection. CT/CT drain peritoneum IMPRESSION: CT-guided pelvic drainage. Electronically signed by: Naomy Alan MD 10/04/2025 05:07 PM [facility] [place]
--- NOTE | ~2025-10-01 | MR_ITS ---
CLINICAL HISTORY: L Adnexal Mass, Ileus, Unable to Tolerate PO MR abdomen with and without gadolinium Comparison: MR - MR PELVIS WO/W CON - 10/03/25 16:31 EST US/SR - US PELVIC AND TRANSVAGINAL - 10/02/25 07:45 EST US - US PELVIC AND TRANSVAGINAL - 10/01/25 19:[address]/[place]/SR - CT ABDOMEN PELVIS WITHOUT IV CONTRAST - 10/01/25 12:[address]/REG/SR - CT ABDOMEN PELVIS WITH IV CONTRAST - 09/16/25 11:32 EST Findings: Small loculated appearing left pleural effusion is present. Heart size is normal. Gallbladder is not seen. Liver, biliary tree, and pancreas are normal in appearance. Spleen and adrenals are normal in appearance. There is severe right and moderate left hydronephrosis as well as moderate bilateral ureteral dilatation. Visualized bowel loops and vasculature are normal in caliber. Multiple mildly prominent retroperitoneal lymph nodes are present. Adnexal and pouch of Hum[place] abnormalities are partially visualized, which are discussed on the accompanying pelvic MRI report. Visualized osseous structures are normal in appearance. IMPRESSION: 1. Loculated left pleural effusion. Infection can not be excluded. 2. Rddoj-cijtzth-ybbn-left hydronephrosis and ureteral dilatation. 3. Presumably reactive retroperitoneal lymph nodes. Continued follow up is recommended to exclude underlying malignancy. This document has been electronically signed by: Abdirahman Hogue MD on 10/03/2025 18:45:14
--- NOTE | ~2025-10-01 | CT_ITS ---
EXAMINATION: CT ABDOMEN PELVIS WITHOUT IV CONTRAST HISTORY: Lower abdominal pain COMPARISON: Previous CT of the abdomen and pelvis most recently September 16, 2025 TECHNIQUE: CT scan of the abdomen and pelvis was performed without contrast using standard departmental protocol. Coronal and sagittal reformatted images were generated and reviewed. This CT exam was performed with one or more of the following dose reduction techniques: automated exposure control, adjustment of the mA and/or kV according to patient size, use of iterative reconstruction technique. DLP: 766 mGy-cm FINDINGS: LOWER CHEST: Complex probably loculated small left pleural effusion. Small pericardial effusion. Small cardiophrenic angle or anterior diaphragmatic lymph nodes on the right. These findings are similar to prior abdominal and pelvic CT. CARDIOVASCULATURE: The heart is normal in size. There is no pericardial effusion. LIVER: The liver is enlarged. Heterogeneous areas of peripheral decreased attenuation, question related to fatty infiltration. GALLBLADDER / BILE DUCTS: The gallbladder has been removed. There is no intra or extrahepatic biliary ductal dilatation. SPLEEN: The spleen is normal in size and has an unremarkable unenhanced appearance. Small splenule. PANCREAS: The pancreas has an unremarkable unenhanced appearance. ADRENAL GLANDS: Slight nodular thickening of the left adrenal gland similar to previous exams. No old right adrenal gland. KIDNEYS/RETROPERITONEUM: No renal calculi are identified. There is no hydronephrosis. No ureteral dilatation or ureteral stone appreciated. LYMPH NODES: There are prominent retroperitoneal lymph nodes in the abdomen and pelvis. These appear similar to recent exam. Largest lymph node is a lower abdominal precaval lymph node measuring 10 mm in short axis axial image 46 series 3 and left para-aortic lymph node measuring 10 mm in short axis axial image 41 series 3. There are smaller bilateral retroperitoneal lymph nodes in the pelvis and portocaval region. VASCULATURE: Not optimally assessed without IV contrast. The abdominal aorta is normal in caliber. MESENTERY/PERITONEUM: There is interval increase in fat stranding seen in the mesentery in the lower abdomen and pelvis. This appears greatest in the left pelvis adjacent to the left adnexa There is a new small amount of fluid in the pelvis. There is no free intraperitoneal gas. STOMACH: Normal SMALL and large BOWEL: Fluid-filled distended small and proximal large bowel increased from previous exam suggestive of increasing ileus. Cecum measures 8 cm. No transition zone to suggest mechanical obstruction. There is questionable wall thickening of the sigmoid colon. The appendix is normal appearing. URINARY BLADDER/PELVIC ORGANS: Well-distended bladder. No stone, mass or wall thickening. Increasing prominence of the left adnexa compared to recent exam for example measuring 6.3 x 6.8 cm axial image 64 series 3. Uterus and right adnexa appear unremarkable. BONES / SOFT TISSUES: Degenerative changes of the spine and hips. Postsurgical changes to the anterior abdominal wall. No hernia. CT/CT abdomen pelvis wo IV con IMPRESSION: Increased fat stranding and new small amount of fluid in the pelvis. This appears greatest in the left pelvis in the left adnexal region with increasing soft tissue prominence. Etiology uncertain. Questionable mild wall thickening of the sigmoid colon. Consider possible colon, left adnexal or left distal ureteral etiology. Recommend follow-up pelvic ultrasound and consider repeat CT with oral and IV contrast. Very distended bladder. Increasing ileus. Enlarged liver. Prominent retroperitoneal lymph nodes similar to recent September 16, 2025 exam. Cannot exclude malignant process/ lymphoproliferative disease. Electronically signed by: Naomy Alan MD 10/01/2025 12:59 PM [facility] [place]
--- NOTE | ~2025-10-01 | XR_ITS ---
EXAMINATION: XR CHEST 1 VIEW HISTORY: sepsis sob COMPARISON: Comparison is made with the prior examination dated 09/29/2025. FINDINGS: Two AP portable views of the chest performed at 2:03 PM are submitted. There is subsegmental atelectasis at both lung bases. There is a probable trace left pleural effusion. There is no right pleural effusion, pneumothorax, or pulmonary vascular congestion. The heart is normal in size. The bones are intact. XR/XR chest 1V IMPRESSION: Bibasilar subsegmental atelectasis. Trace left pleural effusion. Electronically signed by: Dillon Botello MD 10/01/2025 02:21 PM [facility]
--- NOTE | ~2025-10-01 | US_ITS ---
CLINICAL HISTORY: abnormal uterine bleeding, L adnexal mass US pelvis transvaginal Comparison: US - US PELVIC AND TRANSVAGINAL - 10/01/25 19:29 EST Findings: Transvaginal scanning performed. The uterus is 8.8 cm length. Normal myometrium. Endometrium 1 mm thickness. Right ovary 2.3 x 1.7 x 2.0 cm. Left ovary: Not visualized Normal color Doppler of the right ovary Unclear if there is complex free fluid in the cul-de-sac or if this reflects dilated fluid-filled bowel. IMPRESSION: Somewhat limited study. The left ovary is not visualized. The endometrium is thin at 1 mm. Unclear if there is complex free fluid in the cul-de-sac or this reflects dilated fluid-filled bowel. CT would better evaluate this This document has been electronically signed by: Magdiel Rodríguez MD on 10/02/2025 11:15:57
--- NOTE | ~2025-10-01 | CT_ITS ---
EXAMINATION: CT ABDOMEN PELVIS WITH IV CONTRAST HISTORY: residual abscess COMPARISON: Comparison is made with the prior CT dated 10/01/2025, and MRI of the pelvis dated 10/03/2025, and drainage films dated 10/04/2025. TECHNIQUE: CT scan of the abdomen and pelvis was performed following administration of 85 mL Omnipaque 350 using standard departmental protocol. Coronal and sagittal reformatted images were generated and reviewed. Oral contrast material was not administered at the request of the referring physician. This CT exam was performed with one or more of the following dose reduction techniques: automated exposure control, adjustment of the mA and/or kV according to patient size, use of iterative reconstruction technique. DLP: 595 mGy-cm FINDINGS: LOWER CHEST: There is airspace opacity at the left lung base consistent with atelectasis or pneumonia. There is a small cystic pleural effusion. The visualized right lung base is clear. CARDIOVASCULATURE: The heart is normal in size. There is a small pericardial effusion. LIVER: The liver is normal in size and contour. No liver mass is identified. The hepatic and portal veins are patent. GALLBLADDER / BILE DUCTS: The gallbladder is surgically absent. There is no intra or extrahepatic biliary ductal dilatation. SPLEEN: The spleen is normal in size. No focal splenic lesion is identified. PANCREAS: The pancreas is unremarkable in appearance. ADRENAL GLANDS: Within normal limits. KIDNEYS/RETROPERITONEUM: There is moderate bilateral hydroureteronephrosis since of the pelvis. The ureters appear obstructed by the previously noted inflammatory process in the pelvis. No renal masses are identified. LYMPH NODES: There are enlarged para-aortic lymph nodes measuring up to 1.5 cm in diameter. VASCULATURE: The abdominal aorta is normal in caliber. MESENTERY/PERITONEUM: No free fluid. No masses. There is no free intraperitoneal gas. STOMACH: The stomach is unremarkable. SMALL BOWEL: The small bowel is normal in caliber. COLON: The colon is unremarkable. APPENDIX: Normal. URINARY BLADDER/PELVIC ORGANS: There is gas in the urinary bladder which may be related to prior Petty catheter placement. There is a drainage catheter in the pelvis. The catheter has retracted since its initial placement on 10/04/2025 with the pigtail loop now located to the left of the rectum. Again seen is a loculated fluid collection posterior to the uterus measuring approximately 3.1 x 2.6 x 5.7 cm. There is marked surrounding inflammation. Both ovaries are enlarged and demonstrates a multilocular appearance consistent with tubo-ovarian abscesses as noted on MRI. BONES / SOFT TISSUES: No suspicious bony or soft tissue abnormalities. CT/CT abdomen pelvis w IV con IMPRESSION: 1. The ovaries are enlarged and demonstrates a multilocular appearance consistent with tubo-ovarian abscesses as noted on MRI. The inflammatory process causes ureteral compression and moderate bilateral hydroureteronephrosis. 2. The previously placed pigtail catheter has retracted since placement, with the loop now to the left of the rectum. The previously noted fluid collection posterior to the uterus measures 3.1 x 2.6 x 5.7 cm in size. Electronically signed by: Dillon Botello MD 10/08/2025 02:02 PM [facility]
--- OUTSIDE RECORDS SUMMARY | 2025-10-01 09:00 | XMS_ITS | Encounter Summary ---
Author Organization [employer] Address [address] [facility] [address] [place] [address] Care Team Providers Care Broadcast Maintenance Technician Name Role Phone Linda Murphy DO Primary Care Provider Encounter Details Date Type Department Care Team (Latest Contact Info) Description 10/01/2025 9:00 AM EST Office Visit [facility] [address] [place] [address] Linda Murphy DO [address] [place] [address] Pyelonephritis (Primary Dx); Type 2 diabetes mellitus without complication, without long-term current use of insulin (HCC) Social History Tobacco Use Types Packs/Day [...] Sign Reading Time Taken Comments Blood Pressure 118/60 10/01/2025 9:07 AM EST Pulse 111 10/01/2025 9:07 AM EST Temperature 36.9 C (98.5 F) 10/01/2025 9:07 AM EST Respiratory Rate 21 10/01/2025 9:07 AM EST Oxygen Saturation 96% 10/01/2025 9:07 AM EST Inhaled Oxygen Concentration - - Weight 97.1 kg (214 lb) 10/01/2025 9:07 AM EST Height 170.2 cm (5' 7 ) 10/01/2025 9:07 AM EST Body Mass Index 33.52 10/01/2025 9:07 AM EST documented in this encounter Progress Notes * Linda Murphy, DO - 10/01/2025 9:00 AM EST SUBJECTIVE: Tisha Ruiz is a 55 y.o. year old female who presents for follow up after recent ED visit. HPI She was seen in [facility] on 09/16/25 with abdominal pain and vomiting. Her vitals were nml. She had epigastric tenderness on exam. She had a WBC of 17. Her UA was c/w UTI. She had a chest x-ray which showed moderate L sided pleural effusion. She had CT abdominal/pelvis which showed pleural effusion, nml kidneys and large amt of stool. She was treated with GI cocktail and sent home with sucralfate and zofran. She had f/u with Dr. Bailey last week and was sent for f/u chest x-ray which showed persistent pleural effusion and repeat Urine culture which grew E. Coli and was never treated with antibiotics. She says that she has not been feeling well and feels bad this morning. She is having a lot of suprapubic pain and back pain. She denies any N/V. She says that her sugars have been high. She has not had any fevers but having a lot of chills at home. Review of Systems Constitutional: Positive for chills and fatigue. Negative for fever. Respiratory: Negative for shortness of breath. Cardiovascular: Negative for chest pain and leg swelling. Gastrointestinal: Positive for abdominal pain and nausea. Negative for diarrhea and vomiting. Genitourinary: Positive for flank pain. Negative for dysuria, hematuria and urgency. Neurological: Negative for headaches. Patient Active Problem List Diagnosis Allergic rhinitis Chronic bipolar disorder (CMS/HCC) (HCC) Chronic obstructive lung disease (HCC) Obstructive sleep apnea Hyperlipidemia History of tobacco use Type 2 diabetes mellitus (HCC) Fatty liver Status post thyroidectomy History of papillary thyroid carcinoma Chronic gastroesophageal reflux disease Chronic low back pain Leukocytosis Onychomycosis Non-small cell lung cancer (HCC) Hypothyroidism Hot flashes Hypercalcemia Incomplete right bundle branch block BMI 32.0-32.9,adult Multinodular goiter Patellofemoral arthritis of right knee Postoperative hypothyroidism Uterine fibroid Varicose veins of right lower extremity with inflammation Vitamin D deficiency History of thyroid cancer DANIEL (obstructive sleep apnea) Status post lobectomy of lung Long-term current use of opiate analgesic Nausea and vomiting Pyelonephritis Allergies Allergen Reactions Oxycodone Abdominal Pain Other reaction(s): Stomach Pain Other Reaction(s): stomach pain Oxycodone-Acetaminophen Pollen Extract Unknown OBJECTIVE Vitals: 10/01/25 0907 BP: 118/60 BP Location: Left arm Patient Position: Sitting BP Cuff Size: Adult Pulse: (!) 111 Resp: 21 Temp: 98.5 ??F (36.9 ??C) TempSrc: Oral SpO2: 96% Weight: 214 lb (97.1 kg) Height: 5' 7 (1.702 m) Physical Exam Constitutional: General: She is not in acute distress. Appearance: Normal appearance. She is ill-appearing. Cardiovascular: Rate and Rhythm: Regular rhythm. Tachycardia present. Heart sounds: Normal heart sounds. No murmur heard. Pulmonary: Effort: Pulmonary effort is normal. Breath sounds: Normal breath sounds. No wheezing or rhonchi. Abdominal: General: Bowel sounds are normal. Palpations: Abdomen is soft. There is no mass. Tenderness: There is abdominal tenderness. There is right CVA tenderness and left CVA tenderness. There is no guarding or rebound. Neurological: General: No focal deficit present. Mental Status: She is alert and oriented to person, place, and time. Cranial Nerves: No cranial nerve deficit. Motor: No weakness. Gait: Gait normal. Psychiatric: Mood and Affect: Mood normal. Lab Results Component Value Date HGBA1C 8.7 (A) 10/01/2025 HGBA1C 7.7 (H) 04/26/2025 ASSESSMENT/PLAN Diagnoses and all orders for this visit: Pyelonephritis With concern for urosepsis -advised pt that she needs to go to ED for evaluation and treatment, she agrees -red team RN contacted EMS for transport -spoke with [facility] triage re: pt's arrival Type 2 diabetes mellitus without complication, without long-term current use of insulin ([facility]) - POCT Glucose - POCT Hgb A1c F/U with me after ED eval or sooner prn Current Outpatient Medications: acetaminophen (Tylenol 8 Hour) [...] WITH IRON, Disp: 180 tablet, Rfl: 3 Aspirin Low Dose 81 MG EC tablet, TAKE 1 TABLET BY MOUTH AT BEDTIME, Disp: 90 tablet, Rfl: 1 atorvastatin (Lipitor) [...] tablet, TAKE 1 TABLET BY MOUTH EVERY DAY. DO NOT BREAK, CRUSH, DISSOLVE OR CHEW, Disp: 30 tablet, Rfl: 11 gabapentin (Neurontin) 600 MG tablet, TAKE 1 TABLET BY MOUTH THREE TIMES DAILY, Disp: 90 tablet, Rfl: 3 glipiZIDE (Glucotrol) 5 MG tablet, TAKE 2 TABLETS BY MOUTH TWICE DAILY IN THE MORNING AND EVENING BEFORE MEALS, Disp: 120 tablet, Rfl: 5 glucose blood (FREESTYLE LITE) test strip, USE TO TEST BLOOD SUGAR UP TO TWICE DAILY, Disp: 100 strip, Rfl: 11 haloperidol (Haldol) 5 MG tablet, [...] XR (Glucophage-XR) 500 MG 24 hr tablet, Take 2 tablets (1,000 mg) by mouth with breakfastand with evening meal. Do not crush, chew, or split., Disp: 360 tablet, Rfl: 1 methocarbamol (Robaxin) [...] BY MOUTH ONCE DAILY, Disp: , Rfl: TRUEplus Lancets 33G misc, USE TO TEST BLOOD SUGAR UP TO TWICE DAILY, Disp: 100 each, Rfl: 11 Ventolin HFA 108 (90 Base) MCG/ACT inhaler, INHALE 2 PUFFS BY MOUTH EVERY 4 HOURS NEEDED FOR WHEEZING OR SHORTNESS OF BREATH, Disp: 18 g, Rfl: 2 * Joselyn García RN - 10/01/2025 9:00 AM EST PCP requested RN call an ambulance to transport patient to [facility] to r/o urosepsis. PCP will call in expect to [facility]. FD and security notified. RN has printed facesheet and medication list. documented in this encounter Plan of Treatment Not on file documented as of this encounter Goals Goal Patient Goal Type Associated Problems Recent Progress Patient-Stated? Author Hemoglobin A1c < 7 Result Component 8.7( 9:13 AM EST) No Neri Yang, PharmD Help patients manage [...] Care Plan Weekly blood pressure task No Linda Murphy DO Weekly blood pressure task Care Plan Weekly blood pressure task No Linda Murphy DO Patient has chronic kidney disease Care Plan Patient has chronic kidney disease No Linda Murphy DO Patient has chronic kidney disease Care Plan Patient has chronic kidney disease No Linda Murphy DO documented as of this encounter Procedures Procedure Name Priority Date/Time Associated Diagnosis Comments POCT GLYCATED HEMOGLOBIN, TOTAL Routine 10/01/2025 9:13 AM EST Type 2 diabetes mellitus without complication, without long-term current use of insulin (HCC) POCT GLUCOSE Routine 10/01/2025 9:09 AM EST Type 2 diabetes mellitus without complication, without long-term current use of insulin ([facility]) documented in this encounter Results * (ABNORMAL) POCT Hgb A1c (10/01/2025 9:13 AM EST) Hemoglobin A1C 8.7(A) 4.0 - 5.7 % QC Media Lot # [id number] Lot# Expiration Date [id number] Blood 10/01/2025 9:13 AM EST Linda Murphy DO POINT OF CARE TEST ENTER/JAME T ORDERABLES Final Result * (ABNORMAL) POCT Glucose (10/01/2025 9:09 AM EST) Glucose Blood, POC 303(A) 60 - 200 mg/dL [employer] Lot # [id number] Lot# Expiration Date [id number] Blood Capillary blood specimen / Unknown 10/01/2025 9:09 AM EST Linda Murphy DO POINT OF CARE TEST ENTER/JAME T ORDERABLES Final Result documented in this encounter Visit Diagnoses Diagnosis Pyelonephritis- Primary Unspecified pyelonephritis Type 2 diabetes mellitus without complication, without long-term current use of insulin ([facility]) documented in this encounter Additional Health Concerns Active Problems Noted Date Diagnosed Date Help patients manage their type 2 diabetes 09/28 Weekly blood pressure task 09/28/2025 Help patients manage their type 2 diabetes 09/28 Patient has chronic kidney disease 09/28/2025 Weekly blood pressure task 09/28/2025 Patient has chronic kidney disease 09/28/2025 Weekly blood pressure task 10/01/2025 Weekly blood pressure task 10/01/2025 Patient has chronic kidney disease 10/01/2025 Patient has chronic kidney disease 10/01/2025 Assessment Noted Time PHQ-9 Depression Total Score: 0 07/20/20 25 11:20 AM EDT documented as of this encounter Care Teams Broadcast Maintenance Technician Relationship Specialty Start Date End Date Linda Murphy DO [address] [place] [id number] PCP - General Family Medicine 11/24/12 documented as of this encounter
--- NOTE | 2025-10-01 10:46 | ED_ITS ---
HPI - General Adult General Chief complaint: General Medical Stated complaint: ?UTI FROM CLINIC PER EMS Time Seen by Provider: 10/01/25 11:28 Source: patient and EMS Mode of arrival: EMS Limitations: no limitations History of Present Illness ED Provider: EDWARD Franco HPI narrative: Chief Complaint: ?My doctor thinks I have a bad UTI.? History of Present Illness: A 55-year-old patient past medical history of diabetes type 2 hypothyroidism, sacroiliitis, malignant neoplasm of left lower lung, abnormal uterine bleeding, bipolar disorder who presents from [facility] with a 4-day history of lower abdominal pain, chills (no documented fever but ?felt chilly?), and nausea. Patient reports no vomiting since taking home Zofran, and denies diarrhea. Patient notes new finding of low blood pressure today and denies any prior history of hypotension or hypertension. No other significant past medical problems reported except diabetes (not on insulin); home blood glucose checks in the mornings are ?pretty good.? No reported medication allergies except stomach cramping when taking Percocet. Patient was referred from [facility] by Dr. Linda Galindo. Denies cp, sob, headache, vision changes, dizziness Related Data Home Medications ?Medication ?Instructions ?Recorded ?Confirmed lisinopril 2.5 mg tablet 2.5 mg PO DAILY@1200 0 04/15/25 metformin 500 mg tablet,extended 1,000 mg PO BID 09/0504/15/25 release 24 hr acetaminophen 650 mg 650 mg PO Q8H PRN Pain 04/2404/15/25 tablet,extended release albuterol sulfate 90 mcg/actuation 2 puff inhalation Q ID PRN Wheezing 04/24/21 04/15/25 aerosol inhaler atorvastatin 40 mg tablet 40 mg PO BEDTIME 04/24/21 glipizide 5 mg tablet 10 mg PO BID 04/24/21 haloperidol 5 mg tablet 2.5 mg PO BEDTIME 04/24/21 0 04/15/25 bupropion HCl 300 mg 24 hr tablet, 300 mg PO DAILY 04/15/25 extended release aripiprazole 20 mg tablet 20 mg PO BEDTIME 09/24/22 aspirin 81 mg tablet,delayed 81 mg PO DAILY 09/24/22 0 04/15/25 release bupropion HCl 150 mg 24 hr tablet, 150 mg PO DAILY 04/15/25 extended release clonazepam 1 mg tablet (Klonopin) 1 mg PO BID PRN Anxi ety 04/04/23 04/15/25 semaglutide 7 mg tablet (Rybelsus) 7 mg PO DAILY 12/1504/15/25 loratadine 10 mg tablet 10 mg PO DAILY 02/01/25/04/04 montelukast 10 mg tablet 10 mg PO BEDTIME 02/01/25 pantoprazole 20 mg tablet,delayed 20 mg PO DAILY@1700 02/01/25 04/15/25 release ascorbic acid (vitamin C) 250 mg 250 mg PO BID@1200,21 00 02/11/25 04/15/25 tablet ferrous fumarate 324 mg (106 mg 324 mg PO BID@1200,210 0 02/11/25 04/15/25 iron) tablet (Ferrocite) hydroxyzine pamoate 50 mg capsule 50 mg PO TID PRN anx iety 02/11/25 04/15/25 ipratropium 0.5 mg-albuterol 3 mg 3 ml inhalation QID PRN asthma 02/11/25 04/15/25 (2.5 mg base)/3 mL nebulization soln mometasone 100 mcg/actuation HFA 2 puff inhalation BID 02/11/25 04/15/25 aerosol inhaler (Asmanex HFA) omega-3 fatty acids 1,000 mg 1,000 mg PO DAILY 5 04/15/25 capsule vit no.95-ferrous 1 tab PO DAILY 02/11/2504/04 fumarate 28 mg-folic acid 800 mcg tablet () tramadol 50 mg tablet 50 mg PO Q8H PRN severe pain 02/11/25 04/15/25 gabapentin 100 mg tablet 100 mg PO TID 04/15/2504/15 Previous Rx's ?Medication ?Instructions ?Recorded docusate sodium 100 mg capsule 100 mg PO BID #30 caps 02/15/25 (Colace) tramadol 50 mg tablet 50 mg PO Q4H PRN pain #20 ta bs 02/15/25 Tirosint-Michelle 200 mcg/mL oral 400 mcg (2 mL) PO DAILY # 60 mL 09/01/25 solution (levothyroxine) ondansetron 4 mg disintegrating 4 mg PO Q8H PRN nausea and 09/16/25 tablet vomiting #4 tabs sucralfate 1 gram tablet (Carafate) 1 g PO Q6H 7 days #28 tabs 09/16/25 Allergies Allergy/AdvReac Type Severity Reaction Status Date / Time oxycodone (Percocet) Allergy Intermediate stomach Verified 10/01/25 10:32 pain SEASONAL ALLERGIES Allergy Unknown UNKNOWN Uncoded 09/16/25 09:13 Review of Systems 2 Review of Systems: Review of Systems: * Constitutional: Chills, no fever reported. * Gastrointestinal: Nausea; no vomiting (controlled with Zofran); no diarrhea. * Genitourinary: Lower abdominal pain; suspicion for urinary tract infection. * Other systems not specifically reviewed in today?s encounter. Yes all other systems are reviewed and are negative PMFSH Past Medical History Source: old records reviewed and nursing notes reviewed Medical History Primary malignant neoplasm of left lower lobe of lung History of thyroid cancer Hx of radiation therapy Postoperative hypothyroidism Sciatica of right side Back pain Arthritis Anemia Anxiety On home oxygen therapy Incomplete right bundle branch block (RBBB) Uterine fibroid DANIEL (obstructive sleep apnea) Cervical cancer Schizoaffective disorder Pancreatitis Type 2 diabetes mellitus JESICA positive Vitamin D deficiency Morbid obesity Sacroiliitis Multinodular goiter HLD (hyperlipidemia) COPD (chronic obstructive pulmonary disease) GERD (gastroesophageal reflux disease) Bipolar 1 disorder Hypercalcemia Goiter Surgical History History of lobectomy of lung History of tubal ligation History of cholecystectomy History of total thyroidectomy Family History Family History Father Bipolar 1 disorder Mother Diabetes mellitus Hypertension Hyperlipidemia COPD (chronic obstructive pulmonary disease) Paternal Aunt Breast cancer Sister Cervical cancer Social History Social History Household Members: Family Household Members Other:: duplex Housing: House Are you a primary career resource technician to a significant other at home: No Do you presently have visiting nurse or other home services: No Alcohol intake: never Comment: Pt refusing bed alarm, agrees to ring call raza for assist. 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 Oriented X3.? No acute distress.? Head: Normocephalic, atraumatic, no step-offs or deformities Eyes: Pupils equal, round and reactive to light.? ENT: Pharynx normal.? Neck: Normal inspection.? Neck supple.? CVS: Normal heart rate and rhythm.? Pulses normal.? Respiratory: No respiratory distress.? Breath sounds normal.? Abdomen: Soft and diffuse lower abdominal discomfort no rebound tenderness.? Skin: Skin warm and dry.? Normal skin color.? Normal skin turgor.? Extremities: No lower extremity edema.? No calf ttp. 5/5 strength to bilateral upper and lower extremities Back: No midline tenderness, no C-spine tenderness, full range of motion, no CVA tenderness bilaterally Neuro: Oriented X 3.? No motor deficit.? No sensory deficit. CN 2-12 intact Vital Signs: Vital Signs - 24 hr 10/01/25 10:28 10/01/25 12:25 10/01/25 13:00 Temperature 98.8 F 98.8 F Pulse Rate 105 H 105 H 103 H Respiratory Rate 18 14 22 H Blood Pressure 95/43 L 93/45 L 90/59 L Pulse Oximetry 97 94 97 Oxygen Delivery Method Room Air Room Air 10/01/25 13:13 10/01/25 13:47 10/01/25 14:43 Temperature 98.4 F Pulse Rate 104 H 106 H 108 H Respiratory Rate 20 18 16 Blood Pressure 90/45 L 91/58 L 106/68 Pulse Oximetry 98 96 Oxygen Delivery Method Room Air Room Air BMI result Body Mass Index 34.0 vss Course Reevaluation(s) Reevaluation #1: Patient's CBC with leukocytosis and left shift. Chemistry with low sodium 131 will receive IV hydration and also noted to have an MADELINE 30 cc/kilos bolus ordered upon arrival. Beta hCG negative. UA with evidence of infection. CT abdomen pelvis with increased fat stranding and small amount of fluid in the pelvis this appears greatest in the left pelvis in the left adnexal region with increasing soft tissue prominence. Etiology uncertain. Questionable mild wall thickening of the sigmoid colon consider possible: Left adnexal or left distal ureter etiology. This can be done in an inpatient setting. No indication for emergent imaging at this time. Will admit for suspected urosepsis. Time: 14:16 Reevaluation #2: 2:54 PM 10/01/2025 (POIL RAMESH): I was involved in the care of this patient agree with workup and admission to ICU Medications Administered Discontinued Medications Generic Name Dose Route Start Last Admin Trade Name Freq PRN Reason Stop Dose Admin Sodium Chloride 2,955 mls @ 2,955 mls/hr 10/01/25 10:34 10/01/25 12:45 Ns 30 ml/kg infuse over 1 hr (2955 ml) 10/01/25 11:33 Infused IV Infusion .Q1H STA Ceftriaxone Sodium 1 gm/ 50 mls @ 100 mls/hr 10/01/25 10:51 10/01/25 11:52 Sodium Chloride IV 10/01/25 11:20 Infused ONCE ONE Infusion Ketorolac Tromethamine 15 mg 10/01/25 10:51 10/01/25 11:00 Ketorolac Tromethamine 15 Mg/Ml Vial IVPUSH 10/01/25 10:52 15 mg ONCE ONE Administration Midodrine 5 mg 10/01/25 13:10 10/01/25 13:23 Midodrine Hcl 5 Mg Tablet PO 10/01/25 13:11 5 mg ONCE ONE Administration Ondansetron HCl 4 mg 10/01/25 10:51 10/01/25 11:00 Ondansetron Hcl 4 Mg/2 Ml Vial IVPUSH 10/01/25 10:52 4 mg ONCE ONE Administration Medical Decision Making Medical Decision Making [facility] Narrative: 1048 55-year-old with suspected urinary tract infection, presenting with lower abdominal pain, chills, nausea, and new hypotension. Plan includes broad evaluation to rule out sepsis, initiation of empiric antibiotics, fluid resuscitation, and further diagnostics. Physical exam has suprapubic abdominal discomfort on exam of sepsis focused exam was done upon patient's arrival Problem #1: Suspected Urinary Tract Infection Assessment: 4-day history of lower abdominal pain, chills, nausea; concern for UTI without current evidence of pyelonephritis. Plan: * Obtain urine specimen for urinalysis and culture. * Start empiric intravenous antibiotics. * Monitor for signs of upper tract involvement; abdominal imaging ordered. Problem #2: Hypotension (new) Assessment: Patient notes historically normal blood pressure; current reading ?low? (exact value not provided). Plan: * Initiate intravenous fluids. * Repeat vital signs and monitor hemodynamic response. * Assess for sepsis as potential etiology. --> sepsi alert called upon my evaluation 300 cc kg bolus as well as ceftriaxone Problem #3: Diabetes mellitus (kiy-icmgaul-sdmdekgdt) Assessment: Patient reports diabetes, not on insulin, morning glucose checks ?pretty good.? Plan: * Continue current home glucose monitoring regimen. * No acute intervention discussed during today?s visit. Differential Diagnosis Differential Diagnoses: The differential diagnosis associated with the presentation includes * Urinary Tract Infection (UTI), including Pyelonephritis and Urosepsis: The patient presents with lower abdominal pain, chills, and nausea, which are classic symptoms of UTI. The new onset of hypotension raises concern for progression to pyelonephritis or urosepsis, especially in the context of diabetes, which increases susceptibility to severe infections. * Pelvic Inflammatory Disease (PID): Lower abdominal pain and systemic symptoms such as chills and nausea may also be seen in PID, particularly in sexually active young women. PID should be considered even in the absence of classic genitourinary symptoms. * Gastrointestinal Infection (e.g., Gastroenteritis or Colitis): Nausea and abdominal pain are common in GI infections. Although the patient denies diarrhea and vomiting (controlled with Zofran), GI infection remains a possibility. * Diabetic Ketoacidosis (DKA): Patients with diabetes presenting with abdominal pain, nausea, and hypotension should be evaluated for DKA, even if they are not insulin-dependent, as DKA can occur in type 2 diabetes under stress or infection. * Gynecologic Causes (e.g., Ovarian Torsion, Ruptured Ovarian Cyst): Acute lower abdominal pain in young women may be due to gynecologic emergencies such as ovarian torsion or ruptured ovarian cyst, which can present with similar symptoms. * Appendicitis: Appendicitis can present with lower abdominal pain, nausea, and systemic symptoms. The absence of localized right lower quadrant tenderness does not exclude this diagnosis, especially early in the course. Admission/Observation Consideration of admission/observation: Escalation of care including admission/observation considered Consult Healthcare Provider Management of the patient was discussed with: Hospitalist Lab Data 10/01/25 10:48 10/01/25 10:48 Labs: Lab Results 10/01/25 10/01/25 Range/Units 10:48 13:26 WBC 23.9 H (4.8-10.8) X10*3/uL RBC 4.01 L (4.20-5.50) X10*6/uL Hgb 10.6 L (12.0-16.0) g/dl Hct 31.8 L (37.0-47.0) % MCV 79.3 L (80.0-98.0) fL MCH 26.4 L (27.0-33.0) pg MCHC 33.3 (31.0-35.0) g/dl RDW 14.6 (11.0-16.0) % Plt Count 356 D (160-400) X10*3/uL MPV 9.5 (9.4-12.3) fL Immature Gran % (Auto) Cancelled Neut % (Auto) Cancelled Lymph % (Auto) Cancelled [place] % (Auto) Cancelled Eos % (Auto) Cancelled Baso % (Auto) Cancelled Lymph # (Auto) Cancelled [place] # (Auto) Cancelled Eos # (Auto) Cancelled Baso # (Auto) Cancelled Abs Immat Gran (auto) Cancelled Absolute Neuts (auto) Cancelled Absolute Nucleated RBC 0.000 (0.0-0.012) X10*3/uL Nucleated RBC % (auto) 0.0 (0.0-0.2) /100WBC Neutrophils % (Manual) 82 H (45-73) % Band Neutrophils % 0 L (3-5) % Lymphocytes % (Manual) 9 L (20-40) % Atypical Lymphs % (Man) 1 (0-6) % Monocytes % (Manual) 7 (2-11) % Basophils % (Manual) 1 (0-2) % Abs Neuts (Manual) 19.6 H (2.0-8.3) X10*3/uL Lymphocytes # (Manual) 2.2 (1.2-4.9) X10*3/uL Atyp Lymphs # (Manual) 0.2 x10*3/uL Monocytes # (Manual) 1.7 H (0.1-1.2) X10*3/uL Basophils # (Manual) 0.2 (0.0-0.2) X10*3/uL Toxic Vacuolation PRESENT Platelet Estimate NORMAL (NORMAL) Large Platelets PRESENT Plt Morphology Comment NOTED RBC Morphology NOTED Tear Drop Cells 1+ (0-2) /OIF Felicitas Cells 1+ (0-2) /OIF Sodium 131 L (135-145) mmol/L Potassium 4.6 (3.3-5.1) mmol/L Chloride 95 L (96-108) mmol/L Carbon Dioxide 26 (22-29) mmol/L Anion Gap 15 (12-20) BUN 24 H (9-16) mg/dL Creatinine 2.25 H (0.5-1.4) mg/dL Estim Creat Clear Calc 34.9 Estimated GFR 23 Random Glucose 232 H (60-115) mg/dL Lactic Acid 1.7 (0.5-2.0) mmol/L Calcium 9.0 (8.4-10.2) mg/dL Magnesium 1.5 L (1.6-2.6) mg/dL Total Bilirubin 0.3 (0.0-1.0) mg/dL AST 24 (5-31) U/L ALT 28 (0-31) U/L Alkaline Phosphatase 162 H (39-117) U/L Total Protein 7.9 (6.5-8.0) g/dL Albumin 4.1 (3.5-5.0) g/dL Lipase 16 (8-78) U/L Beta-Hydroxybutyrate 0.11 (0.02-0.27) mmol/L Beta HCG, Quant < 2 mIU/mL Urine Color Yellow Urine Appearance Hazy Urine pH 5.5 (5.0-9.0) Ur Specific Ransom 1.015 (1.005-1.025) Urine Protein Trace (Neg-Trace) mg/dL Urine Glucose (UA) Negative (Negative) mg/dL Urine Ketones Negative (Negative) mg/dL Urine Blood Negative (Negative) Urine Nitrite Negative (Negative) Ur Leukocyte Esterase Moderate (2+) H (Negative) Urine RBC 0-2 (0-2) /HPF Urine WBC >50 H (0-5) /HPF Ur Squamous Epith Cells 11-20 (0-2) /HPF Urine Bacteria 4+ (None Seen) Hyaline Casts >20 (0-2) /LPF Independent Interpretation I performed an independent interpretation of an: CT Scan Radiology Impression Discussion of test interpretation with radiology: I have reviewed the radiologist's reading. Critical Care Time Critical Care Time Critical Care Time: Yes Total Critical Care Time: 45 Attestation: I attest to this time spent taking care of the patient, obtaining history, physical, reviewing labs, imaging, treatment of patients condition +/- specialist/hospitalist consult +/- procedure Discharge Plan Discharge Clinical Impression: Sepsis, UTI (urinary tract infection), Nausea, Lower abdominal pain Patient Disposition: Admitted As Inpatient Print Language: Bulgarian
[2025-10-01 11:00] LABS: Hematocrit 31.8 % (37.0-47.0); Hemoglobin 10.6 g/dl (12.0-16.0); Mean Corpuscular HGB Conc 33.3 g/dl (31.0-35.0); Mean Corpuscular Hemoglobin 26.4 pg (27.0-33.0); Mean Corpuscular Volume 79.3 fL (80.0-98.0); NRBC Abs Auto 0.000 X10*3/uL (0.0-0.012); NRBC Pct Auto 0.0 /100WBC (0.0-0.2); Platelet Count 356 X10*3/uL (160-400); Red Blood Count 4.01 X10*6/uL (4.20-5.50); White Blood Count 23.9 X10*3/uL (4.8-10.8)
[2025-10-01 11:19] LABS: Alanine Aminotransferase 28 U/L (0-31); Albumin Level 4.1 g/dL (3.5-5.0); Alkaline Phosphatase 162 U/L (39-117); Anion Gap 15 (12-20); Aspartate Amino Transferase 24 U/L (5-31); Blood Urea Nitrogen 24 mg/dL (9-16); Calcium 9.0 mg/dL (8.4-10.2); Carbon Dioxide 26 mmol/L (22-29); Chloride 95 mmol/L (96-108); Creatinine Clr Calc Pharmacy 34.9; Estimated Glomerular Filt Rate 23; Magnesium 1.5 mg/dL (1.6-2.6); Potassium 4.6 mmol/L (3.3-5.1); Sodium 131 mmol/L (135-145); Total Protein 7.9 g/dL (6.5-8.0)
[2025-10-01 11:27] LABS: Atypical Lymph Absolute Manual 0.2 x10*3/uL; Atypical Lymphs Percent Manual 1 % (0-6); Basophils Abs Manual 0.2 X10*3/uL (0.0-0.2); Basophils Percent Manual 1 % (0-2); Lymphocytes Absolute Manual 2.2 X10*3/uL (1.2-4.9); Lymphocytes Percent Manual 9 % (20-40); Monocytes Absolute Manual 1.7 X10*3/uL (0.1-1.2); Monocytes Percent Manual 7 % (2-11); Neutrophils Percent Manual 82 % (45-73)
[2025-10-01 11:28] LABS: Band Neutrophils Percent 0 % (3-5); Burr Cells 1+ (0-2) /OIF; Large Platelet PRESENT; Neutrophils Absolute Manual 19.6 X10*3/uL (2.0-8.3); RBC Morphology NOTED; Tear Drop Cells 1+ (0-2) /OIF; Toxic Vacuolation PRESENT
--- OUTSIDE RECORDS SUMMARY | 2025-10-01 11:48 | XMS_ITS | Encounter Summary ---
Author Organization [employer] Address [address] [facility] 7t [place] [address] Care Team Providers Care Chief Nurse Anesthetist Name Role Phone Linda Murphy DO Primary Care Provider [phone] Antionette Murphy PharmD Unavailable [phone] Reason for Visit * Reason Comments Med Refill Encounter Details Date Type Department Care Team ([facility] st Contact Info) Description 02/23/2024 Refill [facility] [address] [place] [address] Linda Murphy DO [address] [place] [address] Chronic obstructive pulmonary disease, unspecified COPD type [...] Author Hemoglobin A1c < 7 Result Component 8.7(10/01/2025 9:13 AM EST) No Neri Yang, PharmD documented as of this encounter Visit Diagnoses Diagnosis Chronic obstructive pulmonary disease, unspecified COPD type (CMS/HCC) (HCC) Pain Generalized pain documented in this encounter Additional Health Concerns Assessment Noted Time PHQ-9 Depression Total Score: 0 02/27/20 23 11:42 AM EDT documented as of this encounter Care Teams Chief Nurse Anesthetist Relationship Specialty Start Date End Date Linda Murphy DO [address] [place] [address] PCP - General Family Medicine 11/24/12 Antionette Murphy PharmD [address] [place] [address] Pharmacist Internal Medicine 07/15/24 02/25/25 documented as of this encounter
--- OUTSIDE RECORDS SUMMARY | 2025-10-01 11:48 | XMS_ITS | Encounter Summary ---
Author Organization [facility] Address [address] [facility] [address] [place] [address] Phone Care Team Providers Care Senior Cyber Security Analyst Name Role Phone Linda Murphy DO Primary Care Provider [phone] Encounter Details Date Type Department Care Team (Late st Contact Info) Description 07/03/2024 Procedure Pass [facility], Ct Scan - [address] [address] Social History Tobacco Use Types Packs/Day Years [...] 3:17 PM EDT Antonia Beaulieu RN * [place] Suicide Severity Rating Scale (Screener/Recent Self-Report) Question [...] on filedocumented in this encounter Care Teams Senior Cyber Security Analyst Relationship Specialty Start Date End Date Linda Murphy DO [address] [place] [id number] PCP - General Family Medicine 07/03/24 documented as of this encounter Additional Source Comments The information contained in this document represents components of the legal health record. It is not the complete legal health record.[facility]
--- OUTSIDE RECORDS SUMMARY | 2025-10-01 11:48 | XMS_ITS | Encounter Summary ---
Author Organization [employer] Address [address] [facility] 7t [place] [address] Care Team Providers Care Ground Hand Name Role Phone Linda Murphy DO Primary Care Provider [phone] Dellogla Neri PharmD Unavailable Unavail able Antionette Murphy PharmD Unavailable Reason for Visit * Reason Comments Med Refill Encounter Details Date Type Department Care Team (Late st Contact Info) Description 04/10/2023 Refill [facility] [address] [place] [address] Linda Murphy DO [address] [facility] [place] [address] Social History Tobacco Use Types Packs/Day Years [...] documented as of this encounter Care Teams Ground Hand Relationship Specialty Start Date End Date Linda Murphy DO [address] [place] [address] PCP - General Family Medicine 11/24/12 Neri Yang, PharmD [address] [place] [address] Pharmacist Internal Medicine 11/23/22 10/17/23 Antionette Murphy PharmD [address] [place] [address] Pharmacist Internal Medicine 07/15/24 02/25/25 documented as of this encounter
--- OUTSIDE RECORDS SUMMARY | 2025-10-01 11:48 | XMS_ITS | Encounter Summary ---
Author Organization [employer] Address [address] [place] [address] [address] [place] [address] Care Team Providers Care Wastewater Plant Operator Name Role Phone Linda Murphy DO Primary Care Provider Dellogla Neri PharmD Unavailable Unavail able Antionette Murphy PharmD Unavailable Reason for Visit * Reason Comments Med Refill Encounter Details Date Type Department Care Team ([facility] st Contact Info) Description 04/05/2023 Refill [facility] [address] [place] [address] Linda Murphy DO [address] [place] [address] Social History Tobacco Use Types Packs/Day Years [...] documented as of this encounter Care Teams Wastewater Plant Operator Relationship Specialty Start Date End Date Linda Murphy DO [address] [place] [address] PCP - General Family Medicine 11/24/12 Neri Yang, PharmD [address] [place] [phone] Pharmacist Internal Medicine 11/23/22 10/17/23 Antionette Murphy, EricD [address] [place] [address] Pharmacist Internal Medicine 07/15/24 02/25/25 documented as of this encounter
--- OUTSIDE RECORDS SUMMARY | 2025-10-01 11:48 | XMS_ITS | Clinical Summary ---
Author Organization [facility] Address [address] [address] Phone Care Team Providers Care Smelter Liner Name Role Phone Linda Murphy DO Primary Care Provider [phone] Allergies Active Allergy Reactions Criticality Noted Date [...] topic Medical Devices Not on file Insurance [facility] MEDICARE PART A & B [facility] ONE CARE MEDICARE REPLACEMENT [facility] B [facility] ONE CARE MEDICARE REPLACEMENT [place] [place] [id number] [facility] B [facility] ONE CARE MEDICARE REPLACEMENT [facility] MEDICARE PART A & B [facility] CARE MEDICARE [place]PL[place] [address] [place] [address] MEDICARE PART A & B [facility] ONE CARE MEDICARE REPLACEMENT [facility] MEDICARE PART A & B [facility] ONE CARE MEDICARE REPLACEMENT [place] [id number] Care Teams Smelter Liner Relationship Specialty Start Date End Date Linda Murphy DO [address] [place] [id number] PCP - General Family Medicine 07/03/24 Additional Source Comments The information contained in this document represents components of the legal health record. It is not the complete legal health record.[facility]
--- OUTSIDE RECORDS SUMMARY | 2025-10-01 11:48 | XMS_ITS | Encounter Summary ---
Author Organization [employer] Address [address] [facility] [address] [place] [address] Care Team Providers Care International Recruiter Name Role Phone Linda Murphy DO Primary Care Provider [phone] Encounter Details Date Type Department Care Team ([facility] Contact Info) Description 08/11/2025 Orders Only [facility] MED[facility] [address] [place] [address] Linda Murphy DO [address] [place] [address] Social History Tobacco Use Types Packs/Day Years [...] documented as of this encounter Care Teams International Recruiter Relationship Specialty Start Date End Date Linda Murphy DO [address] [place] [address] PCP - General Family Medicine 11/24/12 documented as of this encounter
--- OUTSIDE RECORDS SUMMARY | 2025-10-01 11:48 | XMS_ITS | Encounter Summary ---
Author Organization [employer] Address [address] [place] [address] [address] [place] [address] Care Team Providers Care Travel Registered Nurse Pacu Name Role Phone Linda Murphy DO Primary Care Provider [phone] Neri Yang PharmD Unavailable Unavail able Antionette Murphy PharmD Unavailable Reason for Visit * Reason Comments Med Refill Encounter Details Date Type Department Care Team (Late st Contact Info) Description 07/08/2023 Refill [facility] [address] [place] [address] Linda Murphy DO [address] [place] [address] Pain Social History Tobacco Use Types Packs/Day [...] Result Component 8.7(10/01/2025 9:13 AM EST) No Dellogono Neri, PharmD documented as of this encounter Visit Diagnoses Diagnosis Pain Generalized pain documented in this encounter Additional Health Concerns Assessment Noted Time PHQ-9 Depression Total Score: 0 02/27/20 11:42 AM EDT documented as of this encounter Care Teams Travel Registered Nurse Pacu Relationship Specialty Start Date End Date Linda Murphy DO [address] [place] [address] PCP - General Family Medicine 11/24/12 Neri Yang, PharmD [address] [place] [address] Pharmacist Internal Medicine 11/23/22 10/17/23 Antionette Murphy PharmD [address] [place] [address] Pharmacist Internal Medicine 07/15/24 02/25/25 documented as of this encounter
--- OUTSIDE RECORDS SUMMARY | 2025-10-01 11:48 | XMS_ITS | Encounter Summary ---
Author Organization [facility] Address [address] [facility] [address] [place] [address] Phone Care Team Providers Care Insurance Office Supervisor Name Role Phone Linda Murphy DO Primary Care Provider Encounter Details Date Type Department Care Team (Late st Contact Info) Description 07/03/2024 Procedure [facility], Ct Scan - [address] [address] Social History Tobacco Use Types Packs/Day Years [...] 3:17 PM EDT Antonia Beaulieu RN * [place] Suicide Severity Rating Scale (Screener/Recent Self-Report) Question [...] on filedocumented in this encounter Care Teams Insurance Office Supervisor Relationship Specialty Start Date End Date Linda Murphy DO [address] [place] [id number] PCP - General Family Medicine 07/03/24 documented as of this encounter Additional Source Comments The information contained in this document represents components of the legal health record. It is not the complete legal health record.[facility]
--- OUTSIDE RECORDS SUMMARY | 2025-10-01 11:48 | XMS_ITS | Encounter Summary ---
Author Organization [employer] Address [address] [facility] 7t [place] [address] Care Team Providers Care Retention Representative Name Role Phone Linda Murphy DO Primary Care Provider [phone] Neri Yang PharmD Unavailable Unavail able Antionette Murphy PharmD Unavailable [phone] Reason for Visit * Reason Onset Date Comments Results 10/08/2023 Encounter Details Date Type Department Care Team ([facility] st Contact Info) Description 10/08/2023 Telephone [facility] [address] [place] [address] Linda Murphy DO [address] [place], [place] [phone] Results Social History Tobacco Use Types Packs/Day [...] yesterday 10/07/2023 but was transferred to the [facility]. documented in this encounter Plan of Treatment [...] documented as of this encounter Care Teams Retention Representative Relationship Specialty Start Date End Date Linda Murphy DO [address] [place] [address] PCP - General Family Medicine 11/24/12 Neri Yang, PharmD [address] [place] [address] Pharmacist Internal Medicine 11/23/22 10/17/23 Antionette Murphy PharmD [address] [place] [address] Pharmacist Internal Medicine 07/15/24 02/25/25 documented as of this encounter
--- OUTSIDE RECORDS SUMMARY | 2025-10-01 11:48 | XMS_ITS | Encounter Summary ---
Author Organization [employer] Address [address] [facility] [address] [place] [address] Care Team Providers Care Stained Glass Joiner Name Role Phone Linda Murphy DO Primary Care Provider [phone] Antionette Murphy PharmD Unavailable [phone] Reason for Visit * Reason Onset Date Comments Medication Question 11/13/2023 Encounter Details Date Type Department Care Team ([facility] st Contact Info) Description 11/13/2023 Telephone [facility] [address] [place] [address] Linda Murphy DO [address] [place] [address] Medication Question Social History Tobacco Use Types [...] 11/08 Physical appointment. Please contact pt at [phone] documented in this encounter Plan of Treatment Not on file documented as of this encounter Goals Goal Patient Goal Type Associated Problems Recent Progress Patient-Stated? Author Hemoglobin A1c < 7 Result Component 8.7(10/01/2025 9:13 AM EST) No Neri Yang PharmD documented as of this encounter Visit Diagnoses Not on filedocumented in this encounter Additional Health Concerns Assessment Noted Time PHQ-9 Depression Total Score: 0 02/27/20 23 11:42 AM EDT documented as of this encounter Care Teams Stained Glass Joiner Relationship Specialty Start Date End Date Lnida Murphy DO [address] [place] [address] PCP - General Family Medicine 11/24/12 Antionette Murphy PharmD [address] [place] [address] Pharmacist Internal Medicine 07/15/24 02/25/25 documented as of this encounter
--- OUTSIDE RECORDS SUMMARY | 2025-10-01 11:48 | XMS_ITS | Encounter Summary ---
Author Organization [employer] Address [address] [facility] 7t [place] [address] Care Team Providers Care Heat And Vent Aircraft Mechanic Name Role Phone Linda Murphy DO Primary Care Provider [phone] DelNeri zavala PharmD Unavailable Unavail able Antionette Murphy PharmD Unavailable [phone] Reason for Visit * Reason Onset Date Comments Letter for School/Work 03/07/2023 Encounter Details Date Type Department Care Team ([facility] st Contact Info) Description 03/07/2023 Telephone [facility] [address] [place] [address] Linda Murphy DO [address] [place] [address] Letter for School/Work Social History Tobacco Use [...] mailed due to COVID Please contact at [phone] documented in this encounter Plan of Treatment [...] as of this encounter Care Teams Heat And Vent Aircraft Mechanic Relationship Specialty Start Date End Date Linda Murphy DO [address] [place] [address] PCP - General Family Medicine 11/24/12 Neri Yang, PharmD [address] [place] [address] Pharmacist Internal Medicine 11/23/22 10/17/23 Antionette Murphy PharmD [address] [place] [address] Pharmacist Internal Medicine 07/15/24 02/25/25 documented as of this encounter
--- OUTSIDE RECORDS SUMMARY | 2025-10-01 11:48 | XMS_ITS | Encounter Summary ---
Author Organization [employer] Address [address] [facility] 7[address] [place] [address] Care Team Providers Care Offbearer Sewer Pipe Name Role Phone Linda Murphy DO Primary Care Provider [phone] Reason for Visit * Reason Comments Med Refill Encounter Details Date Type Department Care Team ([facility] st Contact Info) Description 09/26/[address] [facility] [address] [place] [address] Linda Murphy DO [address] [place] [address] Type 2 diabetes mellitus without complications (HCC) [...] documented as of this encounter Care Teams Offbearer Sewer Pipe Relationship Specialty Start Date End Date Linda Murphy DO [address] [place] [phone] PCP - General Family Medicine 11/24/12 documented as of this encounter
--- OUTSIDE RECORDS SUMMARY | 2025-10-01 11:48 | XMS_ITS | Clinical Summary ---
Author Organization [employer] Address [address] [facility] [address] [place] [address] Care Team Providers Care Furrier Shop Supervisor Name Role Phone Linda Murphy DO [...] obstructive pulmonary disease, unspecified COPD type (CMS/HCC) ([facility]) INHALE 1 AMPULE USING A [...] obstructive pulmonary disease, unspecified COPD type (CMS/HCC) ([facility]) USE 1 CAPSULE FOR INHALATION [...] obstructive pulmonary disease, unspecified COPD type (CMS/HCC) ([facility]) INHALE 2 PUFFS BY MOUTH [...] unspecified whether termite control technician insulin use (HCC) TAKE 1 TABLET BY MOUTH AT BEDTIME 90 tablet 1 Active gabapentin (Neurontin) 600 MG tablet TAKE 1 TABLET BY MOUTH THREE TIMES DAILY 90 tablet 3 Active Alcohol Swabs (Alcohol Prep) 70 % padsIndications:T ype 2 diabetes mellitus without complication, without long-term current use of insulin ([facility]) USE EVERY DAY UP TO TWICE DAILY 100 each Active TRUEplus Lancets 33G miscIndications:T ype 2 diabetes mellitus without complication, without long-term current use of insulin ([facility]) USE TO TEST BLOOD SUGAR UP TO TWICE DAILY 100 each Active glucose blood (FREESTYLE LITE) test stripIndications: Type 2 diabetes mellitus without complication, without long-term current use of insulin ([facility]) USE TO TEST BLOOD SUGAR UP TO TWICE DAILY 100 strip Active ferrous sulfate 325 (65 Fe) MG EC tablet TAKE 1 TABLET BY MOUTH EVERY DAY. DO NOT BREAK, CRUSH, DISSOLVE OR CHEW 30 tablet Active metFORMIN XR (Glucophage-XR) 500 MG 24 hr tabletIndications :Type 2 diabetes mellitus without complication, without long-term current use of insulin ([facility]) Take 2 tablets (1,000 mg) by mouth [...] tablet 5 Active Blood Glucose Monitoring Suppl (GidsyStyle Lite) deviceIndications :Type 2 diabetes mellitus without complication, without long-term current use of insulin (HCC) Inject 1 each under the skin 2 times daily. Use to test blood sugar twice daily, as directed 1 each 024 2024 Discontinued(R eorder (will not trigger notification to Pharmacy)) metFORMIN XR (Glucophage-XR) 500 MG 24 hr tabletIndications :Type 2 diabetes mellitus without complication, without long-term current use of insulin (HCC) TAKE 2 TABLETS BY MOUTH TWICE DAILY AT NOON AND IN THE EVENING 360 tablet 1 025 2024 Discontinued(R eorder (will not trigger notification to Pharmacy)) atorvastatin (Lipitor) 40 MG tablet TAKE 1 TABLET BY MOUTH AT BEDTIME 30 tablet 5 2024 Discontinued glipiZIDE (Glucotrol) 5 MG tablet TAKE 2 TABLETS BY MOUTH TWICE DAILY IN THE MORNING AND EVENING BEFORE MEALS 120 tablet 5 2024 Discontinued semaglutide (Rybelsus) 7 MG tabletIndications :Type 2 diabetes mellitus without complications (HCC) TAKE 1 TABLET BY MOUTH EVERY MORNING 30 MINUTES BEFORE A MEAL 30 tablet 5 2024 Discontinued phenazopyridine (Pyridium) 100 MG tablet Take 1 tablet (100 mg) by mouth if needed in the morning, at noon, and at bedtime for bladder spasms for up to 3 days. 10 tablet 025 11/13/ 2025 ondansetron ODT (Zofran-ODT) 4 MG disintegrating tabletIndications :Nausea and vomiting, unspecified vomiting type Take 1 tablet (4 mg) by mouth every 8 (eight) hours if needed for nausea or vomiting for up to 7 days. 20 tablet 025 2024 Hospital, Clinic, or Other Facility Administered [...] this time Patellofemoral arthritis of right knee 5 Postoperative hypothyroidism 02/11/2025 Overview (02/11/2025): some degree [...] -f/u with pain mgmt prn -advised contact [facility] if sx change or worsen Leukocytosis [...] -cont regular BS monitoring -re-referred to [facility] pharmacist for eval -cont statin and [...] instrumentation of the toenail - refer to assembler dc field yoke - TB UTD Plantar callus 08/26/2024 01/27/2025 [...] Encounters Date Type Department Care Team Description 10/01/2025 9:00 AM EST Office Visit [address] [address] Linda Murphy DO Pyelonephritis (Primary Dx); Type 2 diabetes mellitus without complication, without long-term current use of insulin ([facility]) 10/01/2025 Orders Only GENERIC EXTERNAL DATA DEPARTMENT Provider, Generic External Data 10/01/2025 Travel 09/29/2025 Orders Only [address] [address] Asuncion Bailey MD 09/28/[address] [address] Linda Murphy DO Chart Prep 09/26/[address] [address] Linda Murphy DO Type 2 diabetes mellitus without complications ([facility]) 09/20/2025 11:30 AM EST Office Visit [address] [address] Asuncion Bailey MD Pyelonephritis (Primary Dx); Nausea and vomiting, unspecified vomiting type; Leukocytosis, unspecified type; Multinodular goiter; Non-small cell cancer of left lung ([facility]/HCC) ([facility]) 09/20/2025 Travel 09/17/[address] [address] Linda Murphy DO Prior Authorization (CCA PA: Asmanex HFA 100 MCG) 09/17/[address] [facility] [address] [place] [address] Linda Murphy DO Prior Authorization (CCA PA: Spir[employer] HandiHaler) 09/16/2025 Orders Only GENERIC EXTERNAL DATA DEPARTMENT Provider, Generic External Data 09/15/[address] [facility] [address] [place] [address] Yaima Marquez RN Error (VOID this visit) 09/15/2025 Orders Only GENERIC EXTERNAL DATA DEPARTMENT Provider, Generic External Data 09/02/[address] [facility] [address] [place] [address] Linda Murphy, Type 2 diabetes mellitus without complication, without long-term current use of insulin (HCC) 08/30/[address] [facility] [address] [place] [address] Linda Murphy DO Type 2 diabetes mellitus without complication, without long-term current use of insulin (HCC) 08/18/[address] [facility] [address] [place] [address] No Lopez, KRYSTYNA NCNS MEAT PICKLER RV today; Pt does not want to take Tramadol anymore 08/11/2025 Orders Only [facility] [address] [place] [address] Linda Murphy DO 08/09/[address] [facility] [address] [place] [address] Linda Murphy DO 08/06/[address] [facility] [address] [place] [address] Linda Murphy DO 08/04/[address] [facility] [address] [place] [address] Linda Murphy DO Type 2 diabetes mellitus with other specified complication, unspecified whether termite control technician insulin use ([facility]/HCC) 08/03/[address] [facility] [address] [place] [address] No Lopez RN cancelled chronic group and MEAT PICKLER appts multiple times 07/29/[address] [address] Linda Murphy DO telephone call; Reschedule MEAT PICKLER/Chronic pain group; Blood Sugar Problem 07/28/[address] [phone] No Lopez, KRYSTYNA NCNS MEAT PICKLER RV today 07/27/2025 Refill [facility] [address] [place] [address] Linda Murphy DO Acute post-traumatic headache, not intractable 07/20/2025 11:15 AM EDT Office Visit [address] [address] Linda Murphy DO Type 2 diabetes mellitus without complication, without long-term current use of insulin ([facility]) (Primary Dx); Other hyperlipidemia; Fatty [...] neoplasm of breast 07/20/2025 Travel 07/19/2025 Refill [facility] [address] [place] [address] Linda Murphy DO Chronic bilateral low back pain without sciatica 07/16/[address] [address] Linda Murphy DO Chart Prep 07/15/[address] [facility] [address] [place] [phone] Linda Murphy DO 07/14/2025 Refill [facility] [address] [place] [address] Linda Murphy DO Chronic bilateral low back pain without sciatica 07/01/[address] [facility] [address] [place] [phone] Linda Murphy DO Appointment Request 07/01/2025 Travel [...] Mass Index 33.52 10/01/2025 9:07 AM EST Plan of Treatment Health Maintenance Due Date Last Done Comments CT Colonography 1972 Colonoscopy 1972 Colorectal Cancer Screening 1972 FIT DNA/Cologuard 1972 FIT 1972 FOBT 1972 Sigmoidoscopy 1972 Eye Exam 1982 Hepatitis A Vaccines (1 of 2 - Risk 2-dose series) 1991 Mammogram 04/01/2021 04/01/2019, 01/09/2018 RSV Patients and Patients Aged 60 years or older (1 - Risk 50-74 years 1-dose series) 2022 Cervical Cancer Screening 02/15/2025 Pap Smear 02/15/2025 02/15/2022, 02/15/2022 COVID-19 Vaccine ( season) 2025 10/06/2024, 07/22/2023, 08/24/2022, Additional history exists Influenza Vaccine (#1) 2025 , 07/22/2023, 08/24/2022, Additional history exists Diabetes: Hemoglobin A1C 01/01/2026 025, 07/20/2025, 04/26/2025, Additional history exists SDOH Screening 01/19/2026 01/19/2025 Diabetes: Foot Exam 03/04/2026 03/04/2025, 09/18/2024, 08/26/2024, Additional history exists Alcohol/Substance Use Screening 04/21/2026 04/21/2025 Disability Screening 04/21/2026 04/21/2025 Diabetes: Urine Protein Screening 04/26/2026 04/26/2025, 08/13/2024, 01/14/2023, Additional history exists Lipid Panel 04/26/2026 04/26/2025, 04/2 12/2024, 08/13/2024, Additional history exists Depression Screening 07/20/2026 07/20/2025, 07/20/20 25 Tobacco Screening 10/01/2026 10/01/2025 HPV/Cotest 05/21/2027 05/21/2022, 05/11, 02/15/2022 DTaP/Tdap/Td Vaccines [...] chronic kidney disease No Linda Murphy DO Procedures Procedure Name Priority Date/Time Associated Diagnosis Comments COMPLETE BLOOD COUNT MAN DIF Routine 10/01/2025 10:48 AM EST HCG, TOTAL, QN Routine 10/01/2025 10:48 AM EST MAGNESIUM Routine 10/01/2025 10:48 AM EST COMPREHENSIVE METABOLIC PANEL Routine 10/01/2025 10:48 AM EST LACTIC ACID Routine 10/01/2025 10:48 AM EST CBC WITH AUTO DIFFERENTIAL Routine 10/01/2025 10:48 AM EST POCT GLYCATED HEMOGLOBIN, TOTAL Routine 10/01/2025 9:13 AM EST Type 2 diabetes mellitus without complication, without long-term current use of insulin (HCC) POCT GLUCOSE Routine 10/01/2025 9:09 AM EST Type 2 diabetes mellitus without complication, without long-term current use of insulin (HCC) T4, FREE Routine 09/29/2025 8:38 AM EST [...] Relevant to Health Maintenance Results * (ABNORMAL) Complete Blood Count Manual Diff (10/01/2025 10:48 AM EST) White Blood Count 23.9(H) 4.8 - 10.8 X10*3/uL [facility] Red Blood Count 4.01(L) 4.20 - 5.50 X10*6/uL [facility] Hemoglobin 10.6(L) 12.0 - 16.0 g/dl [facility] Hematocrit 31.8(L) 37.0 - 47.0 % [facility] Mean Corpuscular Volume 79.3(L) 80.0 - 98.0 fL [facility] Mean Corpuscular Hemoglobin 26.4(L) 27.0 - 33.0 pg [facility] Mean Corpuscular HGB Conc 33.3 31.0 - 35.0 g/dl [facility] Red Cell Distribution Width 14.6 11.0 - 16.0 % [facility] Platelet Count 356 160 - 400 X10*3/uL [facility] Mean Platelet Volume 9.5 9.4 - 12.3 fL [facility] NRBC Pct Auto 0.0 0.0 - 0.2 /100WBC [facility] NRBC Abs Auto 0.000 0.0 - 0.012 X10*3/uL [facility] Neutrophils % Manual 82(H) 45 - 73 % [facility] Band Neutrophils Percent 0(L) 3 - 5 % [facility] Lymphocytes Percent Manual 9(L) 20 - 40 % [facility] Atypical Lymphs Percent Manual 1 0 - 6 % [facility] Monocytes Percent Manual 7 2 - 11 % [facility] BASOPHILS % MANUAL 1 0 - 2 % [facility] NEUTROPHILS ABSOLUTE MANUAL 19.6(H) 2.0 - 8.3 X10*3/uL [facility] LYMPHOCYTES ABSOLUTE MANUAL 2.2 1.2 - 4.9 X10*3/uL [facility] Atypical Lymph Absolute Manual 0.2 x10*3/uL [facility] MONOCYTES ABSOLUTE MANUAL 1.7(H) 0.1 - 1.2 X10*3/uL [facility] BASOPHILS ABSOLUTE MANUAL 0.2 0.0 - 0.2 X10*3/uL [facility] Platelet Estimate NORMAL NORMAL [facility] Large Platelet [facility] Platelet Morphology Comment NOTED [facility] RBC Morphology NOTED [facility] Tear Drop Cells 1+ (0-2) /OIF [facility] Toxic Vacuolation PRESENT [facility] Felicitas Cells 1+ (0-2) /OIF [facility] 10/01/2025 10:4 8 AM EST 10/01/2025 10:53 AM EST us Generic External Data Provider LAB BLOOD ORDERAB LES Final Result [facility] [address] [place] [phone] * (ABNORMAL) CBC auto differential (10/01/2025 10:48 AM EST) Only the most recent of4 resultswithin the time period is included. White Blood Count 23.9(H) 4.8 - 10.8 X10*3/uL [facility] Red Blood Count 4.01(L) 4.20 - 5.50 X10*6/uL [facility] Hemoglobin 10.6(L) 12.0 - 16.0 g/dl [facility] Hematocrit 31.8(L) 37.0 - 47.0 % [facility] Mean Corpuscular Volume 79.3(L) 80.0 - 98.0 fL [facility] Mean Corpuscular Hemoglobin 26.4(L) 27.0 - 33.0 pg [facility] Mean Corpuscular HGB Conc 33.3 31.0 - 35.0 g/dl [facility] Red Cell Distribution Width 14.6 11.0 - 16.0 % [facility] Platelet Count 356 160 - 400 X10*3/uL [facility] Mean Platelet Volume 9.5 9.4 - 12.3 fL [facility] Neutrophils Percent Auto 86.9(H) 45 - 73 % [facility] Imm Gran Pct Auto 0.6(H) 0.0 - 0.4 % [facility] Lymphocytes Percent Auto 5.4(L) 20 - 40 % [facility] Monocytes Percent Auto 6.7 2 - 11 % [facility] Eosinophils Percent Auto 0.1 0 - 4 % [facility] Basophils Percent Auto 0.3 0 - 2 % [facility] NRBC Pct Auto 0.0 0.0 - 0.2 /100WBC [facility] Neutrophils Absolute Auto 20.7(H) 2.0 - 8.3 x10*3/uL [facility] Imm Gran Abs Auto 0.14(H) 0.00 - 0.03 X10*3/uL [facility] Lymphocytes Absolute Auto 1.3 1.2 - 4.9 X10*3/uL [facility] Monocytes Absolute Auto 1.6(H) 0.1 - 1.2 X10*3/uL [facility] Eosinophils Absolute Auto 0.0 0.0 - 0.4 X10*3/uL [facility] Basophils Absolute Auto 0.1 0.0 - 0.2 X10*3/uL [facility] NRBC Abs Auto 0.000 0.0 - 0.012 X10*3/uL [facility] 10/01/2025 10:4 8 AM EST 10/01/2025 10:53 AM EST us Generic External Data Provider LAB BLOOD ORDERAB LES Edited Result - Final [facility] [address] [place] [phone] * hCG, Total, Quantitative (10/01/2025 10:48 AM EST) HCG Quantitative <2 mIU/mL [facility] Comment:Weeks post LMP Appro ximate hCG(Last Menstrual Period) Range (mIU/ml)3 - 4 weeks 9 - 1304 - 5 weeks 75 - 2,6005 - 6 weeks 850 - 20,8006 - 7 weeks 4000 - 100,2007 - 12 weeks 11,500 - 289,60243 - 16 weeks 18,300 - 137,53035 - 29 weeks (2nd trimester) 1,400 - 53,25027 - 41 weeks (3rd trimester) 940 - 60,000The [facility] B- hCG assay is used for the early detection ofpregnancy; it cannot be used to diagnose any conditionunrelated to . If a B-hCG level is not supportedby the clinical evidence, results should be confirmed by analternative method (qualitative urine hCG, for example). 10/01/2025 10:4 8 AM EST 10/01/2025 10:53 AM EST Generic External Data Provider LAB BLOOD ORDERAB LES Final Result Performing Organization Address City/[facility] [address]/[facility] Co de Phone Number [facility] [address] [place] [phone] * (ABNORMAL) Magnesium (10/01/2025 10:48 AM EST) Only the most recent of2 resultswithin the time period is included. Pathologist [facility] Magnesium 1.5(L) 1.6 - 2.6 mg/dL [facility] 10/01/2025 10:4 8 AM EST 10/01/2025 10:53 AM EST Generic External Data Provider LAB BLOOD ORDERAB LES Final Result Performing Organization Address [facility] Co de Phone Number [facility] [address] [place] [phone] * Lactic Acid (10/01/2025 10:48 AM EST) Lactic Acid 1.7 0.5 - 2.0 mmol/L [facility] 10/01/2025 10:4 8 AM EST 10/01/2025 10:53 AM EST us Generic External Data Provider LAB BLOOD ORDERAB LES Final Result [facility] [address] [place] [phone] * (ABNORMAL) Comprehensive Metabolic Panel (10/01/2025 10:48 AM EST) Only the most recent of2 resultswithin the time period is included. Sodium 131(L) 135 - 145 mmol/L [facility] Potassium 4.6 3.3 - 5.1 mmol/L [facility] Chloride 95(L) 96 - 108 mmol/L [facility] Carbon Dioxide 26 22 - 29 mmol/L [facility] Anion Gap 15 12 - 20 [facility] Urea Nitrogen (BUN) 24(H) 9 - 16 mg/dL [facility] Creatinine, Serum 2.25(H) 0.5 - 1.4 mg/dL [facility] Creatinine Clr Calc Pharmacy 34.9 [facility] Comment:Provided height and weight: 170.18 cm,98.5 kg.eGFR (calculated from the MDRD study equation) and eCrCl(calculated from the Cockcroft-Gault equation) are based ondifferent parameters and may not yield comparable results.If eCrCl result is absurd, please check patient'sheight/weight. Estimated Glomerular Filt Rate 23 [facility] Comment:Chronic Kidney Disea se: Estimated GFR < 60 mL/min/1.31t8Mmfnze Kidney Disease: Estimated GFR < 15 mL/min/1.73m2 Glucose 232(H) 60 - 115 mg/dL [facility] Calcium 9.0 8.4 - 10.2 mg/dL [facility] Bilirubin, Total 0.3 0.0 - 1.0 mg/dL [facility] Aspartate Amino Transferase 24 5 - 31 U/L [facility] Alanine Aminotransferase 28 0 - 31 U/L [facility] Total Protein 7.9 6.5 - 8.0 g/dL [facility] Albumin Level 4.1 3.5 - 5.0 g/dL [facility] Alkaline Phosphatase 162(H) 39 - 117 U/L [facility] 10/01/2025 10:4 8 AM EST 10/01/2025 10:53 AM EST us Generic External Data Provider LAB BLOOD ORDERAB LES Final Result [facility] [address] [place] [phone] * (ABNORMAL) POCT Hgb A1c (10/01/2025 9:13 AM EST) Only the most recent of2 resultswithin the time period is included. Hemoglobin A1C 8.7(A) 4.0 - 5.7 % QC [employer] Lot # [id number] Lot# Expiration Date Blood 10/01/2025 9:13 AM EST Linda Murphy DO POINT OF CARE TEST ENTER/JAME T ORDERABLES Final Result * (ABNORMAL) POCT Glucose (10/01/2025 9:09 AM EST) Only the most recent of2 resultswithin the time period is included. Glucose Blood, POC 303(A) 60 - 200 mg/dL QC Media Lot # [id number] Lot# Expiration Date Blood Capillary blood specimen / Unknown 10/01/2025 9:09 AM EST Linda Murphy DO POINT OF CARE TEST ENTER/JAME T ORDERABLES Final Result * Slide Review (09/29/2025 8:38 AM EST) Slide Review VERIFIED [facility] 09/29/2025 8:38 AM EST 09/29/2025 8:38 AM EST us Asuncion Bailey MD LAB BLOOD ORDERABLES Fin al Result Performing Organization Address [facility] [address] [facility] de Phone Number [facility] [address] [place] [phone] * (ABNORMAL) TSH with Reflex to Free T4 (09/29/2025 8:38 AM EST) TSH reflex Free T4 42.32(H) 0.32 - 4.0 uIU/mL [facility] Blood 09/29/2025 8:38 AM EST 09/29/2025 8:38 AM EST us Asuncion Bailey MD LAB BLOOD ORDERABLES Fin al Result Performing Organization Address [facility] Phone Number [facility] [address] [place] [phone] * (ABNORMAL) TSH (09/29/2025 8:38 AM EST) Only the most recent of2 resultswithin the time period is included. Thyroid Stimulating Hormone 42.32(H) 0.32 - 4.0 uIU/mL [facility] Comment:Note: A sustained TS H level above 2.5 uIU/mL may warrant further investigation. TSH 3rd Generation ([facility]) 09/29/2025 8:38 AM EST 09/29/2025 8:38 AM EST us Generic External Data Provider LAB BLOOD ORDERAB LES Final Result Performing Organization Address [facility] Co de Phone Number [facility] [address] [place] [phone] * T4, Free (09/29/2025 8:38 AM EST) Only the most recent of2 resultswithin the time period is included. Free T4 (Free Thyroxine) 0.85 0.71 - 1.85 ng/dL [facility] 09/29/2025 8:38 AM EST 09/29/2025 8:38 AM EST us Generic External Data Provider LAB BLOOD ORDERAB LES Final Result Performing Organization Address [facility] Co de Phone Number [facility] [address] [place] [phone] * Lipase (09/29/2025 8:38 AM EST) Lipase 23 8 - 78 U/L [facility] Blood Venous blood specimen / Unknown 09/29/2025 8:38 AM EST 09/29/2025 8:38 AM EST us Asuncion Bailey MD LAB BLOOD ORDERABLES Fin al Result Performing Organization Address [facility] Co de Phone Number [facility] [address] [place] [phone] * Amylase (09/29/2025 8:38 AM EST) Amylase 43 28 - 100 U/L [facility] Blood Venous blood specimen / Unknown 09/29/2025 8:38 AM EST 09/29/2025 8:38 AM EST us Asuncion Bailey MD LAB BLOOD ORDERABLES Fin al Result Performing Organization Address [facility] [address]/[facility] Co de Phone Number [facility] [address] [place] [phone] * XR Chest 2 Views (09/29/2025 8:14 AM EST) Only the most recent of2 resultswithin the time period is included. Anatomical Region Laterality Modality Chest Radiographic Rosaura ging 09/29/2025 8:14 AM EST Narrative 09/29/2025 8:37 AM EST [address] [address] XRay Report Signed Patient: Tisha Ruiz MR#: [id number] 61 : 1970 Acct:[id number] Age/Sex: 55 / F ADM Date: 09/29/25 Loc: [facility] Attending Dr: Asuncion Bailey MD Ordering Physician: Asuncion Bailey MD Date of Service: 09/29/25 Procedure(s): XR chest 2V Accession Number(s): [id number] cc: Asuncion Bailey MD Reason for Exam: [...] signed by Franki Nixon MD in OV> 09/29/25 0834 DD/ 0814 TD/TT: 09/29/25 0826 Aerial Photographer: Procedure Note Donotuseinterpreter, Image - 09/29/2025 [place] [address] XRay Report Signed Patient: Ayanna RuiznMR#: [id number] 61 : 1970Acct:[id number] Age/Sex: 55 / FADM Date: 09/29/25 Loc: [facility] Attending Dr: Asuncion Bailey MD Ordering Physician: Asuncion Bailey MD Date of Service: 09/29/25 Procedure(s): XR chest 2V Accession Number(s): [id number] cc: Asuncion Bailey MD Reason for Exam: [...] Franki Fulton MD 09/29/2025 08:34 AM EST RP Dictated By: Franki Dubon MD Signed By: <Electronically signed by Franki Nixon MDin OV> 09/29/2534 DD/ 3 TD/TT: 09/29/25825 Aerial Photographer: us Asuncion Bailey MD IMG XR PROCEDURES Edited Result - Final * Culture, Urine, Routine (09/21/2025 1:00 AM EST) Only the most recent of2 resultswithin the time period is included. Urine Urine specimen obtained by clean catch procedure / Unknown 09/21/2025 1:00 AM EST 09/21/2025 11:13 AM EST Comment:[facility] Narrative [facility] - 09/23/2025 7:30 AM EST Escherichia coli Quant 50,000 to 100,000 cfu/mL Escherichia coli: Ampicillin >=32(R) Escherichia coli: Cefazolin (Urine) 2(S) Escherichia coli: Cefepime <=0.12(S) Escherichia coli: Ceftriaxone <=0.25(S) Escherichia coli: Ciprofloxacin <=0.06(S) Escherichia coli: Gentamicin <=1(S) Escherichia coli: Nitrofurantoin 32(S) Escherichia coli: Trimethoprim/Sulfamethoxazole <=20(S) Specimen Source: Urine clean catch us Asuncion Bailey MD LAB MICROBIOLOGY - GENER AL ORDERABLES Final Result [facility] [address] [place] [phone] * POCT Urinalysis (09/20/2025 12:00 PM [...] Media Lot # [id number] Lot# Expiration Date [id number] Urine (Urine, Random) 09/20/2025 12:00 PM EST Asuncion Bailey MD POINT OF CARE TEST ENTER /EDIT ORDERABLES Final Result * CT Abdomen Pelvis w/ Contrast (09/16/2025 11:32 AM EST) Anatomical Region Laterality Modality Body, Pelvis, Abdomen Computed T omography 09/16/2025 11:3 2 AM EST Narrative 09/16/2025 12:00 PM EST [place] [address] CT Scan Report Signed Patient: Tisha Ruiz MR#: [id number] 61 : 1970 Acct:[id number] Age/Sex: 55 / F ADM Date: 09/16/25 Loc: .ED Attending Dr: Ordering Physician: Teo Mazariegos DO Date of Service: 09/16/25 Procedure(s): CT abdomen pelvis w IV con Accession Number(s): [id number] cc: Linda Murphy DO; Teo Mazariegos DO Report Number: [id number]: Total DLP = 628.00 mGy-cm Reason for [...] 09/16/25 1157 DD/ 1132 TD/TT: 09/16/25 1145 Aerial Photographer: Procedure Note Donotuseinterpreter, Image - 09/16/[address] [place] [address] [address] Scan Report Signed Patient: Ayanna RuiznMR#: [id number] 61 : 1970Acct:[id number] Age/Sex: 55 / FADM Date: 09/16/25 Loc: HO.ED Attending Dr: Ordering Physician: Teo Mazariegos DO Date of Service: 09/16/25 Procedure(s): CT abdomen pelvis w IV con Accession Number(s): [id number] cc: Linda Murphy DO; Teo Mazariegos DO Report Number: [id number]: Total DLP = 628.00 mGy-cm Reason for [...] 09/16/25 1157 DD/ 1132 TD/TT: 09/16/25 1145 Aerial Photographer: [facility] External Provider IMG CT PROCEDURES Final Result * (ABNORMAL) Urinalysis, Complete, with Reflex to Culture (09/16/2025 9:34 AM EST) Color Urine Yellow [facility] Appearance Urine Cloudy [facility] PH 7.0 5.0 - 9.0 [facility] Glucose Urine UA Negative Negative mg/dL [facility] Urine Blood Negative Negative [facility] Specific [place] - Urine <=1.005 1.005 - 1.025 [facility] Urine Protein Negative Neg-Trace mg/dL [facility] Urine Ketones Negative Negative mg/dL [facility] Nitrite Urine Positive(A) Negative [facility] Leukocyte Esterase Urine Trace(A) Negative [facility] RBC Urine 0-2 0 - 2 /HPF [facility] Urine WBC 6-10(A) 0 - 5 /HPF [facility] Urine Squamous Epithelial Cell 11-20 0 - 2 /HPF [facility] Urine Bacteria 4+ None Seen [facility] Hyaline Casts, Urine 0-2 0 - 2 /LPF [facility] 09/16/2025 9:34 AM EST 09/16/2025 9:39 AM EST Narrative [facility] - 09/16/2025 9:54 AM EST [id number], Clean Catch Generic External Data Provider LAB URINE ORDERAB LES Final Result [facility] [address] [place] [phone] * Hepatic Function Panel (09/16/2025 9:34 AM EST) [facility] Bilirubin, Direct 0.1 0.0 - 0.5 mg/dL [facility] 09/16/2025 9:34 AM EST 09/16/2025 9:39 AM EST Generic External Data Provider LAB BLOOD ORDERAB LES Final Result Performing Organization Address City/[facility] [address]/ZIP Co de Phone Number [facility] [address] [place] [phone] * (ABNORMAL) Glucose, Whole Blood (09/16/2025 9:15 AM EST) [facility] Glucose, Whole Blood 333(H) 60 - 115 mg/dL [facility] Comment:METER #: [id number] 09/16/2025 9:15 AM EST 09/16/2025 9:19 AM EST Generic External Data Provider LAB BLOOD ORDERAB LES Final Result Performing Organization Address City/[facility] [address]/[facility] de Phone Number [facility] [address] [place] [phone] * (ABNORMAL) Thyroglobulin, LC/MS/MS (09/15/2025 11:17 AM EST) [facility] Thyroglobulin, LC/MS/MS 0.2(A) ng/mL [facility] Comment:Reference Range: Int act Thyroid 2.8-40.9 Athyrotic <0.1 Note: Abnormal flagging is based on the reference interval for patients with intact thyroid.This test was performed using the Johny Coulterchemiluminescent method. Values obtained fromdifferent assay methods cannot be usedinterchangeably. Thyroglobulin levels, regardlessof value, should not be interpreted as absoluteevidence of the presence or absence of disease. Thyroglobulin Comment See Below [facility] Comment:Thyroglobulin antibo dies (TGAB) interfere withthyroglobulin (TG) assays; therefore, TGAB assayshould always be performed in conjunction with aTG assay.For additional information, please refer tohttp://education.[employer]/faq/FRA093(This link is being provided for informational/educational purposes only.)THIS TEST WAS PERFORMED AT:[facility] [place] [phone] DURANT MD 09/15/2025 11:1 7 AM EST 09/15/2025 11:17 AM EST us Generic External Data Provider LAB BLOOD ORDERAB LES Final Result [facility] [address] [place] [phone] * (ABNORMAL) Thyroblobulin, Tumor Marker w/Reflex (09/15/2025 11:17 AM EST) Thyroglobulin Antibody <1 <=1 IU/mL [facility] Comment:This Thyroglobulin a ntibody test was performedusing the [employer] Chemiluminescent method.Values obtained from different assay methods cannot beused interchangeably. Thyroglobulin antibody levels,regardless of value, should not be interpreted asabsolute evidence of the presence or absence ofdisease. Thyroglobulin, LC/MS/MS TNP [facility] Thyroglobulin Level 0.1(A) ng/mL [facility] Comment:Reference Range: Ath yrotic: <0.1 ng/mLReference range applies to differentiated thyroidcancer patients following treatment. The presence ofmeasurable thyroglobulin indicates the presence ofthyroglobulin-producing thyroid tissue. Clinicalcorrelation is advised.This Thyroglobulin test was performed using theCR[employer] Technologies Chemiluminescent method. Valuesobtained from different assay methods cannot beused interchangeably. Thyroglobulin levels, regardlessof value, should not be interpreted as absoluteevidence of the presence or absence of disease.THIS TEST WAS PERFORMED AT:[facility] [id number] [place] [phone] ROJAS MD,PHD 09/15/2025 11:1 7 AM EST 09/15/2025 11:17 AM EST us Generic External Data Provider LAB BLOOD ORDERAB LES Final Result Performing Organization Address [facility] Co de Phone Number [facility] [address] [place] [phone] * Thyroglobulin Antibodies (09/15/2025 11:17 AM EST) Thyroglobulin Antibodies <1 < or = 1 IU/mL [facility] Comment:THIS TEST WAS PERFOR MED AT:[facility] [place] [phone] DURANT MD 09/15/2025 11:1 7 AM EST 09/15/2025 11:17 AM EST us Generic External Data Provider LAB BLOOD ORDERAB LES Final Result Performing Organization Address [facility] de Phone Number [facility] [address] [place] [phone] * Vitamin B12 (Cobalamin) and Folate Panel, Serum (07/20/2025 12:57 PM EDT) Vitamin B12 377 200 - 900 pg/mL [facility] Comment:NORMAL 200-900 PG/ML INDETERMINATE 160-199 PG/ML DEFICIENT < 160 PG/ML Folate 14.2 > or = 4.0 ng/mL [facility] Comment:Reference Values:> o r = [...] R esult Performing Organization Address City/[facility] [address]/ZIP Co de Phone Number [facility] [address] [place] [phone] * Iron And Total Iron Binding Capacity (07/20/2025 12:57 PM EDT) Iron 59 30 - 160 mcg/dL [facility] Comment:Slight Hemolysis.Int erpret result with caution. Total Iron Binding Capacity 303 228 - 428 mcg/dL [facility] Percent Iron Saturation 19 15 - 50 % [facility] Unsaturated Iron Binding 244 ug/dL [facility] Blood Venous blood specimen / Unknown 07/20/2025 12:57 PM EDT 07/20/2025 12:57 PM EDT Linda Murphy DO LAB BLOOD ORDERABLES Final R esult Performing Organization Address [facility] de Phone Number [facility] [address] [place] [phone] * Alpha-Fetoprotein, Tumor Marker (07/20/2025 12:57 PM EDT) Pathologist [facility] Alpha Fetoprotein 2.7 ng/mL [facility] Comment:Reference Range: <6. 1The use of AFP as a tumor marker in females is not recommended.This test was performed using the Johny Coulterchemiluminescent method. Values obtained fromdifferent assay methods cannot be usedinterchangeably. AFP levels, regardless ofvalue, should not be interpreted as absoluteevidence of the presence or absence of disease.THIS TEST WAS PERFORMED AT:[facility] [place] [phone] DURANT MD Blood Venous blood specimen / Unknown 07/20/2025 12:57 PM EDT 07/20/2025 12:57 PM EDT us Linda Murphy DO LAB BLOOD ORDERABLES Final R esult Performing Organization Address [facility] Co de Phone Number [facility] [address] [place] [phone] [phone] * (ABNORMAL) Partial Thromboplastin Time, Activated (APTT) (07/20/2025 12:57 PM EDT) [facility] Partial Thromboplastin Time 40.1(H) 26.7 - 34.1 SEC [facility] Blood Venous blood specimen / Unknown 07/20/2025 12:57 PM EDT 07/20/2025 12:57 PM EDT Linda Murphy DO LAB BLOOD ORDERABLES Final R esult Performing Organization Address City/[facility] [address]/ZIP Co de Phone Number [facility] [address] [place] [phone] * (ABNORMAL) Prothrombin Time-INR (07/20/2025 12:57 PM EDT) [facility] Prothrombin Time 10.6(L) 10.9 - 12.4 SEC [facility] INTERNATIONAL NORM RATIO 0.9 0.9 - 1.1 [facility] Comment:INTERNATIONAL NORMAL IZED RATIO (INR) [...] R esult Performing Organization Address City/[facility] [address]/ZIP Co de Phone Number [facility] [address] [place] [phone] * Ferritin (07/20/2025 12:57 PM EDT) [facility] Ferritin 58 10 - 250 ng/mL [facility] Blood Venous blood specimen / Unknown 07/20/2025 12:57 PM EDT 07/20/2025 12:57 PM EDT Linda Murphy DO LAB BLOOD ORDERABLES Final R esult Performing Organization Address [facility]/ZIP Co de Phone Number [facility] [address] [place] [phone] * Albumin, Random Urine W/Creatinine (04/26/2025 11:11 AM EDT) Creatinine, Urine 52.62 mg/dL [facility] Microalbumin Urine 11.0 mg/L [facility] Microalbum Creatinine Ratio Ur 20.9 <30 ug/mg cr [facility] Comment:Albumin/Creatinine R atio Reference Ranges: Normal: < 30 ug/mg creatinine Microalbuminuria: 30 - 300 ug/mg creatinineClinical Albuminuria: > 300 ug/mg creatinine Urine (Urine, Random) 04/26/2025 11:11 AM EDT 04/26/2025 12:56 PM EDT Linda Murphy DO LAB URINE ORDERABLES Final R esult Performing Organization Address [facility] Co de Phone Number [facility] [address] [place] [phone] * Hepatitis C Antibody with Reflex to HCV, RNA, Quantitative, Real-Time PCR (04/26/2025 11:11 AM EDT) Hepatitis C Antibody Nonreactive Nonreactive [facility] Comment:Antibodies to HCV no t detected; does not exclude early acuteHCV infection. Blood Venous blood specimen / Unknown 04/26/2025 11:11 AM EDT 04/26/2025 12:56 PM EDT Linda Murphy DO LAB BLOOD ORDERABLES Final R esult Performing Organization Address City/[facility] [address]/ZIP Co de Phone Number [facility] [address] [place] [phone] * HIV-1/2 Antigen and Antibodies, Fourth Generation, with Reflexes (04/26/2025 11:11 AM EDT) HIV AB/AG Nonreactive Nonreactive [facility] Comment:HIV-1 p24 Ag and/or HIV-1/HIV-2 Ab not detected.A test result that is nonreactive does not exclude thepossibility of exposure to or infection with HIV-1 and/orHIV-2. Nonreactive results in this assay for individualswith prior exposure to HIV-1 and/or HIV-2 may be due toantigen and antibody levels that are below the limit ofdetection of this assay.The [employer] HIV Ag/Ab Combo assay result andsupplemental assay results should be interpreted inconjunction with the patient's clinical presentation,history and other laboratory results. If the results areinconsistent with clinical evidence, additional testing issuggested to confirm the result. Blood Venous blood specimen / Unknown 04/26/2025 11:11 AM EDT 04/26/2025 12:56 PM EDT us Linda Murphy DO LAB BLOOD ORDERABLES Final R esult Performing Organization Address [facility]/ZIP Co de Phone Number [facility] [address] [place] [phone] * (ABNORMAL) Lipid Panel, Standard (04/26/2025 11:11 AM EDT) Triglycerides 161(H) <150 mg/dL [facility] Comment:Desirable Triglyceri de: less than 150 mg/dLBorderline High Triglyceride 150-199 mg/dLHigh Triglyceride: 200-499 mg/dLVery High Triglyceride: greater than or equal to 5OO mg/dL Cholesterol 139 <200 mg/dL [facility] Comment:Desirable Cholestero l: less than 200 mg/dLBorderline High Cholesterol: 200-239 mg/dLHigh Cholesterol: greater than 239 mg/dL LDL Cholesterol Calculated 64 <100 mg/dL [facility] Comment:Desirable LDL: less than 100 mg/dLNear Optimal/Above Optimal LDL: 110- 129 mg/dLBorderline High LDL: 130-159 mg/dLHigh LDL: 160-189 mg/dLVery High LDL: greater than or equal to 190 mg/dL HDL Cholesterol 43 >40 mg/dL [facility] Comment:Desirable HDL: great er than 40 mg/dL Note: This HDL assay may give artificially low results in patients with liver disease. Blood Venous blood specimen / Unknown 04/26/2025 11:11 AM EDT 04/26/2025 12:56 PM EDT us Linda Murphy DO LAB BLOOD ORDERABLES Final R esult [facility] [address] [place] [phone] * Referral to Podiatry (03/04/2025) us Asuncion Bailey MD OUTPATIENT REFERRAL [facility]INO Final Result * HPV E6/E7 RFLX LUIS 16 18/45 (05/21/2022 3:45 PM EDT) HPV mRNA E6/E7 rflx Not Detected Not Detected [facility] Comment: Methodology: Financial Writer-Mediated Amplification This assay detects E6/E7 viral messenger RNA (mRNA) from 14 high-risk HPV types (16,18,31,33,35,39,45,51,52,56,58,59,66,68). Cervical sources are required for HPV testing. If a vaginal source from a patient who has had a total hysterectomy with removal of cervix was submitted, please contact the testing laboratory for alternative testing options. For additional information, please refer to http://education.[employer]/faq/QII890v1 (This link if provided for information/ educational purposes only.) THIS TEST WAS PERFORMED AT: [facility] [address] [place] [address] FLOOR,[place] [address] VALERIA DURANT MD 05/21/2022 3:45 PM EDT Fecrho Palmer MD HISTORICAL/NON ORDERABLE LABS Fi nal Result [facility] [address] [place] [phone], * Pap Smear (02/15/2022 12:00 AM EDT) Swab Linda Murphy DO LAB CYTOLOGY ORDERABLES Ce l Result [facility] [address], [place] [phone] * DIGITAL BILATERAL SCREEN 1 (04/01/2019 2:56 [...] 10/01/2025 Patient has chronic kidney disease 10/01/2025 Insurance [facility] ONE CARE < 65 [employer] Care Teams Furrier Shop Supervisor Relationship Specialty Start Date End Date Linda Murphy DO [address] [place] [address] PCP - General Family Medicine 11/24/12
--- OUTSIDE RECORDS SUMMARY | 2025-10-01 11:48 | XMS_ITS | Encounter Summary ---
Author Organization [email or web address] Address [address] [facility] 7t [place] [address] Care Team Providers Care Zyglo Technician Name Role Phone Linda Murphy DO Primary Care Provider [phone] Reason for Visit * Reason Onset Date Comments Chart Prep 09/28/2025 Encounter Details Date Type Department Care Team ([facility] st Contact Info) Description 09/28/2025 Telephone [facility] MEDICINE [address] [place] [address] Linda Murphy DO [address] [place] [address] Chart Prep Social History Tobacco Use Types [...] Images: No Show Mammogram, US Abdomen reschedule 11/2025([facility]) Referrals: appointment pending Vaccines due: Covid, Flu, [...] documented as of this encounter Care Teams Zyglo Technician Relationship Specialty Start Date End Date Linda Murphy DO [address] [place] [address] PCP - General Family Medicine 11/24/12 documented as of this encounter
--- OUTSIDE RECORDS SUMMARY | 2025-10-01 11:48 | XMS_ITS | Encounter Summary ---
Author Organization [employer] Address [address] [facility] [address] [place] [address] Care Team Providers Care Resident Associate Name Role Phone Linda Murphy DO Primary Care Provider DelNeri zavala PharmD Unavailable Unavail able Antionette Murphy PharmD Unavailable Reason for Visit * Reason Onset Date Comments letter michael lopez 07/26/2023 Encounter Details Date Type Department Care Team (Late st Contact Info) Description 07/26/2023 Telephone [facility] MEDICINE [address] [place] [address] Linda Murphy DO [address] [place], [place] [phone] letter michael lopez Social History Tobacco Use [...] to Medical side. Please contact pt at [phone] documented in this encounter Plan of Treatment [...] documented as of this encounter Care Teams Resident Associate Relationship Specialty Start Date End Date Linda Murpyh DO [address] [place] [phone] PCP - General Family Medicine 11/24/12 Neri Yang, PharmD [address] [place] [phone] Pharmacist Internal Medicine 11/23/22 10/17/23 Antionette Murphy PharmD [address] [place] [phone] Pharmacist Internal Medicine 07/15/24 02/25/25 documented as of this encounter
--- OUTSIDE RECORDS SUMMARY | 2025-10-01 11:48 | XMS_ITS | Encounter Summary ---
Author Organization [employer] Address [address] [place] [address] 7t [place] [address] Care Team Providers Care Mixing Machine Attendant Name Role Phone Linda Murphy DO Primary Care Provider [phone] DelNeri zavala PharmD Unavailable Unavail able Antionette Murphy PharmD Unavailable Reason for Referral * Imaging (Routine) - Canceled Specialty Diagnoses / Procedures Referred By Contlauren t Referred To Contact Radiology Diagnoses Hilar mass Procedures CT Chest w/o Contrast Nora Astudillo FNP [address] [place] [address] Phone: tel: fax: [facility] [address] [place] [phone] Phone: tel: fax: Referral ID Status Reason Start Date Expiration Date V isits Requested Visits Authorized [id number] Canceled 10/11/2023 10/10/2024 1 1 Encounter Details Date Type Department Care Team (Late st Contact Info) Description 10/11/2023 Orders Only [facility] [address] [place] [address] Nora Astudillo FNP [address] [place] [phone] Hilar mass (Primary Dx) Social History Tobacco [...] documented as of this encounter Care Teams Mixing Machine Attendant Relationship Specialty Start Date End Date Linda Murphy DO [address] [place] [address] PCP - General Family Medicine 11/24/12 Neri Yang, Kaiden [address] [place] [address] Pharmacist Internal Medicine 11/23/22 10/17/23 Antionette Murphy PharmD [address] [place] [address] Pharmacist Internal Medicine 07/15/24 02/25/25 documented as of this encounter
--- OUTSIDE RECORDS SUMMARY | 2025-10-01 11:48 | XMS_ITS | Encounter Summary ---
Author Organization [employer] Address [address] [facility] 7t [place] [address] Care Team Providers Care Chief Mechanical Engineer Name Role Phone Linda Murphy DO Primary Care Provider [phone] Antionette Murphy PharmD Unavailable [phone] Reason for Visit * Reason Comments Med Refill Encounter Details Date Type Department Care Team ([facility] st Contact Info) Description 07/03/2024 Refill [facility] MEDICINE [address] [place] [address] Linda Murphy DO [address] [place] [address] Tobacco dependence Social History Tobacco Use Types [...] is your housing situation today? I have chirstie blanc 08/26/[address] you [...] as of this encounter Care Teams Chief Mechanical Engineer Relationship Specialty Start Date End Date Linda Murphy DO [address] [place] [address] PCP - General Family Medicine 11/24/12 Antionette Murphy PharmD [address] [place] [address] Pharmacist Internal Medicine 07/15/24 02/25/25 documented as of this encounter
--- OUTSIDE RECORDS SUMMARY | 2025-10-01 11:49 | XMS_ITS | Encounter Summary ---
Author Organization [email or web address] Address [address] [facility] 7t [place] [address] Care Team Providers Care Transportation Planning Engineer Name Role Phone Joelle Murphyfer Primary Care Provider + [phone] Encounter Details Date Type Department Care Team (Late st Contact Info) Description 10/01/2025 Orders Only GENERIC EXTERNAL DATA DEPARTMENT [...] MAN DIF Routine 10/01/2025 10:48 AM EST CBC WITH AUTO DIFFERENTIAL Routine 10/01/2025 10:48 AM EST HCG, TOTAL, QN Routine 10/01/2025 10:48 AM EST MAGNESIUM Routine 10/01/2025 10:48 AM EST LACTIC ACID Routine 10/01/2025 10:48 AM EST COMPREHENSIVE METABOLIC PANEL Routine 10/01/2025 10:48 AM EST documented in this encounter Results * (ABNORMAL) Complete Blood Count Manual Diff (10/01/2025 10:48 AM EST) White Blood Count 23.9(H) 4.8 - 10.8 X10*3/uL [facility] Red Blood Count 4.01(L) 4.20 - 5.50 X10*6/uL [facility] Hemoglobin 10.6(L) 12.0 - 16.0 g/dl [facility] Hematocrit 31.8(L) 37.0 - 47.0 % [facility] Mean Corpuscular Volume 79.3(L) 80.0 - 98.0 fL [facility] Mean Corpuscular Hemoglobin 26.4(L) 27.0 - 33.0 pg [facility] Mean Corpuscular HGB Conc 33.3 31.0 - 35.0 g/dl [facility] Red Cell Distribution Width 14.6 11.0 - 16.0 % [facility] Platelet Count 356 160 - 400 X10*3/uL [facility] Mean Platelet Volume 9.5 9.4 - 12.3 fL [facility] NRBC Pct Auto 0.0 0.0 - 0.2 /100WBC [facility] NRBC Abs Auto 0.000 0.0 - 0.012 X10*3/uL [facility] Neutrophils % Manual 82(H) 45 - 73 % [facility] Band Neutrophils Percent 0(L) 3 - 5 % [facility] Lymphocytes Percent Manual 9(L) 20 - 40 % [facility] Atypical Lymphs Percent Manual 1 0 - 6 % [facility] Monocytes Percent Manual 7 2 - 11 % [facility] BASOPHILS % MANUAL 1 0 - 2 % [facility] NEUTROPHILS ABSOLUTE MANUAL 19.6(H) 2.0 - 8.3 X10*3/uL [facility] LYMPHOCYTES ABSOLUTE MANUAL 2.2 1.2 - 4.9 X10*3/uL [facility] Atypical Lymph Absolute Manual 0.2 x10*3/uL [facility] MONOCYTES ABSOLUTE MANUAL 1.7(H) 0.1 - 1.2 X10*3/uL [facility] BASOPHILS ABSOLUTE MANUAL 0.2 0.0 - 0.2 X10*3/uL [facility] Platelet Estimate NORMAL NORMAL [facility] Large Platelet [facility] Platelet Morphology Comment NOTED [facility] RBC Morphology NOTED [facility] Tear Drop Cells 1+ (0-2) /OIF [facility] Toxic Vacuolation PRESENT [facility] Felicitas Cells 1+ (0-2) /F [facility] 10/01/2025 10:4 8 AM EST 10/01/2025 10:53 AM EST us Generic External Data Provider LAB BLOOD ORDERAB LES Final Result [facility] [address] [place] [phone] [phone] * hCG, Total, Quantitative (10/01/2025 10:48 AM EST) HCG Quantitative <2 mIU/mL [facility] Comment:Weeks post LMP Appro ximate hCG(Last Menstrual Period) Range (mIU/ml)3 - 4 weeks 9 - 1304 - 5 weeks 75 - 2,6005 - 6 weeks 850 - 20,8006 - 7 weeks 4000 - 100,2007 - 12 weeks 11,500 - 289,06681 - 16 weeks 18,300 - 137,47599 - 29 weeks (2nd trimester) 1,400 - 53,45383 - 41 weeks (3rd trimester) 940 - [...] ORDERAB LES Final Result Performing Organization Address City/[facility] Co de Phone Number [facility] [address] [place] [phone] * (ABNORMAL) Magnesium (10/01/2025 10:48 AM EST) Pathologist [facility] Magnesium 1.5(L) 1.6 - 2.6 mg/dL [facility] 10/01/2025 10:4 8 AM EST 10/01/2025 10:53 AM EST Generic External Data Provider LAB BLOOD ORDERAB LES Final Result Performing Organization Address [facility] de Phone Number [facility] [address] [place] [phone] * (ABNORMAL) Comprehensive Metabolic Panel (10/01/2025 10:48 AM EST) Sodium 131(L) 135 - 145 mmol/L [facility] Potassium 4.6 3.3 - 5.1 mmol/L [facility] Chloride 95(L) 96 - 108 mmol/L [facility] Carbon Dioxide 26 22 - 29 mmol/L [facility] Anion Gap 15 12 - 20 [facility] Urea Nitrogen (BUN) 24(H) 9 - 16 mg/dL [facility] Creatinine, Serum 2.25(H) 0.5 - 1.4 mg/dL [facility] Creatinine Clr Calc Pharmacy 34.9 [facility] Comment:Provided height and weight: 170.18 cm,98.5 kg.eGFR (calculated from the MDRD study equation) and eCrCl(calculated from the Cockcroft-Gault equation) are based ondifferent parameters and may not yield comparable results.If eCrCl result is absurd, please check patient'sheight/weight. Estimated Glomerular Filt Rate 23 [facility] Comment:Chronic Kidney Disea se: Estimated GFR < 60 mL/min/1.65t0Geupez Kidney Disease: Estimated GFR < 15 mL/min/1.73m2 Glucose 232(H) 60 - 115 mg/dL [facility] Calcium 9.0 8.4 - 10.2 mg/dL [facility] Bilirubin, Total 0.3 0.0 - 1.0 mg/dL [facility] Aspartate Amino Transferase 24 5 - 31 U/L [facility] Alanine Aminotransferase 28 0 - 31 U/L [facility] Total Protein 7.9 6.5 - 8.0 g/dL [facility] Albumin Level 4.1 3.5 - 5.0 g/dL [facility] Alkaline Phosphatase 162(H) 39 - 117 U/L [facility] 10/01/2025 10:4 8 AM EST 10/01/2025 10:53 AM EST us Generic External Data Provider LAB BLOOD ORDERAB LES Final Result Performing Organization Address [facility]/ZIP Co de Phone Number [facility] [address] [place] [phone] * Lactic Acid (10/01/2025 10:48 AM EST) Lactic Acid 1.7 0.5 - 2.0 mmol/L [facility] 10/01/2025 10:4 8 AM EST 10/01/2025 10:53 AM EST us Generic External Data Provider LAB BLOOD ORDERAB LES Final Result Performing Organization Address [facility] Co de Phone Number [facility] [address] [place] [phone] [phone] * (ABNORMAL) CBC auto differential (10/01/2025 10:48 AM EST) White Blood Count 23.9(H) 4.8 - 10.8 X10*3/uL [facility] Red Blood Count 4.01(L) 4.20 - 5.50 X10*6/uL [facility] Hemoglobin 10.6(L) 12.0 - 16.0 g/dl [facility] Hematocrit 31.8(L) 37.0 - 47.0 % [facility] Mean Corpuscular Volume 79.3(L) 80.0 - 98.0 fL [facility] Mean Corpuscular Hemoglobin 26.4(L) 27.0 - 33.0 pg [facility] Mean Corpuscular HGB Conc 33.3 31.0 - 35.0 g/dl [facility] Red Cell Distribution Width 14.6 11.0 - 16.0 % [facility] Platelet Count 356 160 - 400 X10*3/uL [facility] Mean Platelet Volume 9.5 9.4 - 12.3 fL [facility] Neutrophils Percent Auto 86.9(H) 45 - 73 % [facility] Imm Gran Pct Auto 0.6(H) 0.0 - 0.4 % [facility] Lymphocytes Percent Auto 5.4(L) 20 - 40 % [facility] Monocytes Percent Auto 6.7 2 - 11 % [facility] Eosinophils Percent Auto 0.1 0 - 4 % [facility] Basophils Percent Auto 0.3 0 - 2 % [facility] NRBC Pct Auto 0.0 0.0 - 0.2 /100WBC [facility] Neutrophils Absolute Auto 20.7(H) 2.0 - 8.3 x10*3/uL [facility] Imm Gran Abs Auto 0.14(H) 0.00 - 0.03 X10*3/uL [facility] Lymphocytes Absolute Auto 1.3 1.2 - 4.9 X10*3/uL [facility] Monocytes Absolute Auto 1.6(H) 0.1 - 1.2 X10*3/uL [facility] Eosinophils Absolute Auto 0.0 0.0 - 0.4 X10*3/uL [facility] Basophils Absolute Auto 0.1 0.0 - 0.2 X10*3/uL [facility] NRBC Abs Auto 0.000 0.0 - 0.012 X10*3/uL [facility] 10/01/2025 10:4 8 AM EST 10/01/2025 10:53 AM EST us Generic External Data Provider LAB BLOOD ORDERAB LES Edited Result - Final [facility] [address] [place] [address] [phone] documented in this encounter Visit Diagnoses [...] as of this encounter Care Teams Transportation Planning Engineer Relationship Specialty Start Date End Date Linda Murphy DO [address] [place] [phone] PCP - General Family Medicine 11/24/12 documented as of this encounter
--- OUTSIDE RECORDS SUMMARY | 2025-10-01 11:49 | XMS_ITS | Encounter Summary ---
Author Organization [employer] Address [address] [facility] [address] 7[address] [place] [address] Care Team Providers Care Apiculture Teacher Name Role Phone Linda Murphy DO Primary Care Provider [phone] Antionette Murphy PharmD Unavailable [phone] Reason for Visit * Reason Comments Med Refill Encounter Details Date Type Department Care Team (Late st Contact Info) Description 02/11/2025 Refill [facility] MED & PEDS [address] [place] [address] Linda Murphy DO [address] [place] [address] Chronic low back pain, unspecified back pain [...] 8.7(10/01/2025 9:13 AM EST) No Neri Yang, Kaiden documented as of this encounter Visit Diagnoses Diagnosis Chronic low back pain, unspecified back pain laterality, unspecified whether sciatica present documented in this encounter Additional Health Concerns Assessment Noted Time PHQ-9 Depression Total Score: 0 01/20/20 25 12:15 PM EDT documented as of this encounter Care Teams Apiculture Teacher Relationship Specialty Start Date End Date Linda Murphy DO [address] [place] [address] PCP - General Family Medicine 11/24/12 Antionette Murphy PharmD [address] [place] [address] Pharmacist Internal Medicine 07/15/24 02/25/25 documented as of this encounter
--- OUTSIDE RECORDS SUMMARY | 2025-10-01 11:49 | XMS_ITS | Clinical Summary ---
Author Organization [address] [facility] Address [address] [place] [address] Phone Care Team Providers Care Clay Mixer Name Role Phone Linda Murphy DO Primary Care Provider [phone] Allergies No known active allergies Medications acetaminophen [...] Diagnosed Date Allergic rhinitis 12/22/2024 Bipolar disorder ([facility] V24, [facility] V28) 02/1 11/2024 DANIEL (obstructive sleep apnea) 12/22/2024 Hyperlipidemia 12/22/2024 Type 2 diabetes mellitus ([facility] V24, [facility] V 28) 12/22/2024 Fatty liver 12/22/2024 Status post thyroidectomy 12/22/2024 Hx of papillary thyroid carcinoma 12/22/2024 GERD (gastroesophageal reflux disease) Chronic low back pain 12/22/2024 Leukocytosis 12/22/2024 Toenail avulsion 12/22/2024 Plantar callus 12/22/2024 Onychomycosis 12/22/2024 Encounters Date Type Department Care Team Description 08/31/2025 10:15 AM EDT Office Visit Orthopedic Surgery [facility] [address] [phone] Gutierrez Ruiz DPM Controlled type 2 diabetes with neuropathy ([facility] V24, [facility] V28) (Primary Dx); Metatarsalgia of [...] 10:15 AM EST Office Visit Orthopedic Surgery [facility] [address] [phone] Gutierrez Ruiz DPM [address] [address] Health Maintenance Due Date Last Done Comments [...] ID:ICO Type:Not on file Address: [address] [place] [address] Care Teams Clay Mixer Relationship Specialty Start Date End Date Linda Murphy DO [address] [place], [place] PCP - General Internal Medicine 04/09/19
--- OUTSIDE RECORDS SUMMARY | 2025-10-01 11:49 | XMS_ITS | Encounter Summary ---
Author Organization [employer] Address [address] [facility] [address] 7t [place] [address] Care Team Providers Care Siebel Architect Name Role Phone Linda Murphy DO Primary Care Provider [phone] Reason for Visit * Reason Comments Med Refill Encounter Details Date Type Department Care Team ([facility] st Contact Info) Description 07/14/2025 Refill [facility] MED & PEDS [address] [place] [address] Linda Murphy DO [address] [facility] [place] [address] Chronic bilateral low back pain without sciatica [...] Result Component 8.7(10/01/2025 9:13 AM EST) No Dellogla, Neri, PharmD documented as of this encounter Visit Diagnoses Diagnosis Chronic bilateral low back pain without sciatica documented in this encounter Additional Health Concerns Assessment Noted Time PHQ-9 Depression Total Score: 0 01/20/20 25 12:15 PM EDT documented as of this encounter Care Teams Siebel Architect Relationship Specialty Start Date End Date Linda Murphy DO [address] [place] [phone] PCP - General Family Medicine 11/24/12 documented as of this encounter
--- OUTSIDE RECORDS SUMMARY | 2025-10-01 11:49 | XMS_ITS | Encounter Summary ---
Author Organization [employer] Address [address] [facility] 7t [place] [address] Care Team Providers Care General Dentist Name Role Phone Linda Murphy DO Primary Care Provider DellogNeri tovar PharmD Unavailable Unavail able Antionette Murphy PharmD Unavailable Reason for Visit * Reason Onset Date Comments triage 11/14/2022 Encounter Details Date Type Department Care Team (Late st Contact Info) Description 11/14/2022 Telephone [facility] MEDICINE [address] [place] [address] Linda Murphy DO [address] [place], [place] [phone] triage Social History Tobacco Use Types Packs/Day [...] EST Triage call Pt reports seen in [facility] ED today. Pt reports [...] on filedocumented in this encounter Care Teams General Dentist Relationship Specialty Start Date End Date Linda Murphy DO [address] [place] [address] PCP - General Family Medicine 11/24/12 Neri Yang PharmD [address] [place] [address] Pharmacist Internal Medicine 11/23/22 10/17/23 Antionette Murphy PharmD [address] [place] [address] Pharmacist Internal Medicine 07/15/24 02/25/25 documented as of this encounter
--- OUTSIDE RECORDS SUMMARY | 2025-10-01 11:49 | XMS_ITS | Encounter Summary ---
Author Organization [employer] Address [address] [facility] 7t [place] [address] Care Team Providers Care Yarding Supervisor Name Role Phone Linda Murphy DO Primary Care Provider [phone] Antionette Murphy PharmD Unavailable [phone] Reason for Visit * Reason Onset Date Comments Med Refill 12/18/2024 Encounter Details Date Type Department Care Team (Late st Contact Info) Description 12/18/2024 Refill [facility] MEDICINE [address] [place] [address] Linda Murphy DO [address] [place] [address] Social History Tobacco Use Types Packs/Day Years [...] documented as of this encounter Care Teams Yarding Supervisor Relationship Specialty Start Date End Date Linda Murphy DO [address] [place] [address] PCP - General Family Medicine 11/24/12 Anitonette Murphy PharmD [address] [place] [address] Pharmacist Internal Medicine 07/15/24 02/25/25 documented as of this encounter
--- OUTSIDE RECORDS SUMMARY | 2025-10-01 11:49 | XMS_ITS | Encounter Summary ---
Author Organization [employer] Address [address] [facility] [address] [place] [address] Care Team Providers Care Payroll Professional Name Role Phone Linda Murphy DO Primary Care Provider [phone] Encounter Details Date Type Department Care Team ([facility] Contact Info) Description 09/29/2025 Orders Only [facility]INE [address] [place] [address] Asuncion Bailey MD [address] [place] [address] Social History Tobacco Use Types Packs/Day Years [...] 8.7( 9:13 AM EST) No Neri Yang, EricD Help patients manage their type 2 diabetes [...] (Free Thyroxine) 0.85 0.71 - 1.85 ng/dL [facility] 09/29/2025 8:38 AM EST 09/29/2025 8:38 AM EST us Generic External Data Provider LAB BLOOD ORDERAB LES Final Result Performing Organization Address [facility] Co de Phone Number [facility] [address] [place] [phone] * (ABNORMAL) TSH (09/29/2025 8:38 AM EST) Thyroid Stimulating Hormone 42.32(H) 0.32 - 4.0 uIU/mL [facility] Comment:Note: A sustained TS H level above 2.5 uIU/mL may warrant further investigation. TSH 3rd Generation ([facility]) 09/29/2025 8:38 AM EST 09/29/2025 8:38 AM EST us Generic External Data Provider LAB BLOOD ORDERAB LES Final Result Performing Organization Address [facility] Co de Phone Number [facility] [address] [place] [phone] * Slide Review (09/29/2025 8:38 AM EST) Slide Review VERIFIED [facility] 09/29/2025 8:38 AM EST 09/29/2025 8:38 AM EST us Asuncion Bailey MD LAB BLOOD ORDERABLES Fin al Result Performing Organization Address City/[facility] Co de Phone Number [facility] [address] [place] [phone] documented in this encounter Visit Diagnoses [...] documented as of this encounter Care Teams Payroll Professional Relationship Specialty Start Date End Date Linda Murphy DO [address] [place] [address] PCP - General Family Medicine 11/24/12 documented as of this encounter
--- OUTSIDE RECORDS SUMMARY | 2025-10-01 11:49 | XMS_ITS | Encounter Summary ---
Author Organization [employer] Address [address] [facility] 7t [place] [address] Care Team Providers Care Safety Clothing And Equipment Developer Name Role Phone Linda Murphy DO Primary Care Provider [phone] Antionette Murphy PharmD Unavailable [phone] Reason for Visit * Reason Comments Med Refill Encounter Details Date Type Department Care Team ([facility] st Contact Info) Description 11/24/2023 Refill [facility] MEDICINE [address] [place] [address] Linda Murphy DO [address] [place] [address] Social History Tobacco Use Types Packs/Day Years [...] documented as of this encounter Care Teams Safety Clothing And Equipment Developer Relationship Specialty Start Date End Date Linda Murphy DO [address] [place] [address] PCP - General Family Medicine 11/24/12 Antionette Murphy PharmD [address] [place] [address] Pharmacist Internal Medicine 07/15/24 02/25/25 documented as of this encounter
--- OUTSIDE RECORDS SUMMARY | 2025-10-01 11:49 | XMS_ITS | Encounter Summary ---
Author Organization [employer] Address [address] [address] 7[address] [place] [address] Care Team Providers Care Fitness Specialist Name Role Phone Linda Murphy DO Primary Care Provider [phone] Antionette Murphy PharmD Unavailable [phone] Reason for Visit * Reason Onset Date Comments Med Refill 12/18/2024 Encounter Details Date Type Department Care Team (Late st Contact Info) Description 12/18/2024 Refill [facility] MED & PEDS [address] [place] [address] Linda Murphy DO [address] [place] [address] Acute post-traumatic headache, not intractable; Chronic obstructive [...] documented as of this encounter Care Teams Fitness Specialist Relationship Specialty Start Date End Date Linda Murphy DO [address] [place] [address] PCP - General Family Medicine 11/24/12 Antionette Murphy PharmD [address] [place] [address] Pharmacist Internal Medicine 07/15/24 02/25/25 documented as of this encounter
--- OUTSIDE RECORDS SUMMARY | 2025-10-01 11:49 | XMS_ITS | Encounter Summary ---
Author Organization [employer] Address [address] [facility] 7t [place] [address] Care Team Providers Care Clinical Veterinarian Name Role Phone Linda Murphy DO Primary Care Provider [phone] Antionette Murphy PharmD Unavailable [phone] Reason for Visit * Reason Onset Date Comments Durable Medical Equipment 03/06/2024 Encounter Details Date Type Department Care Team ([facility] st Contact Info) Description 03/06/2024 Telephone [facility] MEDICINE [address] [place] [address] Linda Murphy DO [address] [place] [address] Durable Medical Equipment Social History Tobacco Use [...] as of this encounter Care Teams Clinical Veterinarian Relationship Specialty Start Date End Date Linda Murphy DO [address] [place] [address] PCP - General Family Medicine 11/24/12 Antionette Murphy PharmD [address] [place] [address] Pharmacist Internal Medicine 07/15/24 02/25/25 documented as of this encounter
--- OUTSIDE RECORDS SUMMARY | 2025-10-01 11:49 | XMS_ITS | Encounter Summary ---
Author Organization [email or web address] Address [address] [facility] [address] [place] [address] Care Team Providers Care President And Cmo Name Role Phone KatherineLinda Primary Care Provider + [phone] Encounter Details Date Type Department Care Team (Latest Contact Info) Description 10/01/2025 Travel Social History Tobacco Use Types Packs/Day [...] t he electric, gas, oil or water [employer] threatened to shut off services in your [...] Patient has chronic kidney disease No Janette Raimres MA Weekly blood pressure task Care Plan [...] Murphy DO documented as of this encounter Visit Diagnoses [...] as of this encounter Care Teams President And Cmo Relationship Specialty Start Date End Date Linda Murphy DO [address] [place] [address] PCP - General Family Medicine 11/24/12 documented as of this encounter
--- NOTE | 2025-10-01 13:14 | PC.NURSE ---
sepsis bolus infusion complete. pt remains hypotensive - see vitals. 90/45 most recent. Venus LEON notified. plan for midodrine PO pt sent to bathroom for urine sample. no dizziness, no nausea, walks steadily. reports feeling better after pain medications.
[2025-10-01 13:41] LABS: Appearance Urine Hazy; Glucose Urine UA Negative (Negative); PH 5.5 (5.0-9.0); Specific Gravity - Urine 1.015 (1.005-1.025); UMIC TRIGGER UACC YES
[2025-10-01 13:55] LABS: UACC Culture Trigger YES
[2025-10-01 14:30] LABS: Lipase 16 U/L (8-78)
[2025-10-01 15:10] LABS: Appearance Urine Cloudy; Glucose Urine UA Negative (Negative); PH 5.5 (5.0-9.0); Specific Gravity - Urine 1.015 (1.005-1.025); UMIC TRIGGER UACC YES
[2025-10-01 15:21] LABS: UACC Culture Trigger YES
--- NOTE | 2025-10-01 15:21 | PM.CCHP ---
History of Present Illness Date of Service: 10/01/25 Attending physician on admission: Emy Ro Chief Complaint: Abdominal Pain Patient is a 55 Y F w/ bipolar disorder, diabetes mellitus, obesity c/b obstructive sleep apnea, prior thyroid cancer s/p resection, lung cancer, and recurrent abnormal uterine bleeding, presenting to ED on 09/30 w/ chills, dysuria, and abdominal pain; ED work-up demonstrating contaminated urinalysis, though likely urinary tract infection; of note, CT A/P not suggestive of nephrolithiasis, though demonstrating L adnexal mass; patient found to be intermittently hypotensive, prompting ICU admission for c/f worsening sepsis Review of Systems Review of Systems: Yes all other systems are reviewed and are negative PMFSH Past Medical History Medical History Primary malignant neoplasm of left lower lobe of lung History of thyroid cancer Hx of radiation therapy Postoperative hypothyroidism Sciatica of right side Back pain Arthritis Anemia Anxiety On home oxygen therapy Incomplete right bundle branch block (RBBB) Uterine fibroid DANIEL (obstructive sleep apnea) Cervical cancer Schizoaffective disorder Pancreatitis Type 2 diabetes mellitus JESICA positive Vitamin D deficiency Morbid obesity Sacroiliitis Multinodular goiter HLD (hyperlipidemia) COPD (chronic obstructive pulmonary disease) GERD (gastroesophageal reflux disease) Bipolar 1 disorder Hypercalcemia Goiter Family History Family History Father Bipolar 1 disorder Mother Diabetes mellitus Hypertension Hyperlipidemia COPD (chronic obstructive pulmonary disease) Paternal Aunt Breast cancer Sister Cervical cancer Surgical History Surgical History History of lobectomy of lung History of tubal ligation History of cholecystectomy History of total thyroidectomy Social History Social History Household Members: Family Household Members Other:: duplex Housing: House Are you a primary janitor caretaker to a significant other at home: No Do you presently have visiting nurse or other home services: No Alcohol intake: never Comment: Pt refusing bed alarm, agrees to ring call raza for assist. 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: Yes (Stress) Meds Allergies Allergy/AdvReac Type Severity Reaction Status Date / Time oxycodone (Percocet) Allergy Intermediate stomach Verified 10/01/25 10:32 pain SEASONAL ALLERGIES Allergy Unknown UNKNOWN Uncoded 09/16/25 09:13 Active Medications: Current Medications Albuterol/Ipratropium (Albuterol/Iprat 2.5/0.5mg 3 Ml Ampul.Neb) 3 ml INHALE RQ4H WHILE AWAKE PRN PRN Reason: Wheezing Aspirin (Aspirin 81 Mg Tab.Chew) 81 mg PO DAILY RACHEL Atorvastatin Calcium (Atorvastatin Calcium 40 Mg Tablet) 40 mg PO BEDTIME RACHEL Baclofen (Baclofen 10 Mg Tablet) 10 mg PO TID PRN PRN Reason: Muscle Spasm Clonazepam (Clonazepam 0.5 Mg Tablet) 0.5 mg PO BID PRN PRN Reason: Anxiety Dextrose (Dextrose 50 % 25 Gm/50 Ml Syringe) 25 gm IVPUSH Q15M PRN; Protocol PRN Reason: per Hypoglycemia Standing Ord. Enoxaparin Sodium (Enoxaparin Sodium 40 Mg/0.4 Ml Syringe) 40 mg SUBCUT Q24H RACHEL Glucose (Glucose Gel 15 Gm Gel..Gram.) 15 gm PO Q15M PRN; Protocol PRN Reason: per Hypoglycemia Standing Ord. Norepinephrine Bitartrate (Levophed) 8 mg in 250 mls @ 0 mls/hr IV .Q0M RACHEL; Protocol Ceftriaxone Sodium 2 gm/ (Sodium Chloride) 50 mls @ 100 mls/hr IV Q24H [facility] Insulin Human Lispro (Insulin Lispro 100 Unit/Ml 3 Ml Vial) 0 unit SUBCUT QIDACHS RACHEL; Protocol Home Medications ?Medication ?Instructions ?Recorded ?Confirmed ?Last Taken ?Type lisinopril 2.5 mg tablet 2.5 mg PO DAILY@1200 09/05/20 10/01/25 10/01/25 History metformin 500 mg tablet,extended 1,000 mg PO BID 09/05/20 10/01/25 10/01/25 History release 24 hr acetaminophen 650 mg 650 mg PO Q8H PRN Pain 04/24/21 10/01/25 Unknown History tablet,extended release albuterol sulfate 90 mcg/actuation 2 puff inhalation QID PRN Wheezing 04/24/21 10/01/25 02/11/25 05:00 History aerosol inhaler atorvastatin 40 mg tablet 40 mg PO BEDTIME 04/24/21 10/01/25 10/01/25 History glipizide 5 mg tablet 10 mg PO BID 04/24/21 10/01/25 10/01/25 History haloperidol 5 mg tablet 2.5 mg PO BID 04/24/21 10/01/25 10/01/25 History bupropion HCl 300 mg 24 hr tablet, 300 mg PO DAILY 06/07/22 10/01/25 10/01/25 History extended release aripiprazole 20 mg tablet 20 mg PO BEDTIME 09/24/22 10/01/25 10/01/25 History aspirin 81 mg tablet,delayed 81 mg PO DAILY 09/24/22 10/01/25 10/01/25 History release bupropion HCl 150 mg 24 hr tablet, 150 mg PO DAILY 09/24/22 10/01/25 10/01/25 History extended release clonazepam 1 mg tablet (Klonopin) 1 mg PO BID PRN Anxiety 04/04/23 10/01/25 10/01/25 History semaglutide 7 mg tablet (Rybelsus) 7 mg PO DAILY 12/15/24 10/01/25 10/01/25 History loratadine 10 mg tablet 10 mg PO DAILY 02/01/25 10/01/25 10/01/25 History montelukast 10 mg tablet 10 mg PO BEDTIME 02/01/25 10/01/25 10/01/25 History pantoprazole 20 mg tablet,delayed 20 mg PO DAILY@1700 02/01/25 10/01/25 10/01/25 History release ascorbic acid (vitamin C) 250 mg 250 mg PO BID@1200,2100 02/11/25 10/01/25 10/01/25 History tablet ferrous fumarate 324 mg (106 mg 324 mg PO DAILY 02/11/25 10/01/25 10/01/25 History iron) tablet (Ferrocite) ipratropium 0.5 mg-albuterol 3 mg 3 ml inhalation QID PRN asthma 02/11/25 10/01/25 10/01/25 History (2.5 mg base)/3 mL nebulization soln omega-3 fatty acids 1,000 mg 1,000 mg PO DAILY 02/11/25 10/01/25 10/01/25 History capsule vit no.95-ferrous 1 tab PO DAILY 02/11/25 10/01/25 10/01/25 History fumarate 28 mg-folic acid 800 mcg tablet () tramadol 50 mg tablet 50 mg PO Q8H PRN severe pain 02/11/25 10/01/25 10/01/25 History gabapentin 100 mg tablet 100 mg PO TID 04/15/25 10/01/25 10/01/25 History baclofen 10 mg tablet 10 mg PO TID PRN muscle spasm 10/01/25 10/01/25 10/01/25 History diclofenac sodium 1 % topical gel 2 g topical QID PRN pain 10/01/25 10/01/25 10/01/25 History levothyroxine 200 mcg/mL oral 400 mcg PO DAILY@0200 10/01/25 10/01/25 10/01/25 History solution (Tirosint-Michelle) mometasone 100 mcg/actuation HFA 2 puff inhalation BID 10/01/25 10/01/25 10/01/25 History aerosol inhaler (Asmanex HFA) tiotropium bromide 18 mcg capsule 1 cap inhalation DAILY 10/01/25 10/01/25 10/01/25 History with inhalation device (Spiriva with HandiHaler) Physical Exam Vital Signs: Vital Signs: Last Vital Signs Temp 98.4 F 10/01/25 14:43 Pulse 104 H 10/01/25 15:00 Resp 18 10/01/25 15:00 BP 107/56 L 10/01/25 15:00 Pulse Ox 96 10/01/25 15:00 O2 Del Method Room Air 10/01/25 15:00 BMI result Body Mass Index 34.0 Const: General: cooperative, healthy appearing, comfortable, no acute distress, well developed, alert, awake and Physically active Orientation/consciousness: patient oriented x3 HEENT: Head: Yes normal to inspection, Yes normocephalic and Yes atraumatic Eyes: General: appearance normal, both eyes and all related structures Neck: Neck: Yes normal visual inspection, Yes full ROM, Yes no meningeal signs, Yes trachea midline and Yes supple Chest: Chest palpation & inspection: normal inspection of the chest Resp: Other: no appreciable overt rales, rhonchi, wheezing Effort & Inspection: normal respiratory effort Cardio: Rate: tachycardic Rhythm: regular rhythm GI: Other: distended, though soft, compressible; some tenderness to palpation L lower quadrant; no appreciable rebound, guarding Skin: General skin exam: no rashes or lesions noted Neuro: General: patient oriented x3, tone normal, moves all extremities, no meningeal signs and no focal motor deficits Extrem: General: Yes normal to inspection, Yes full ROM, Yes capillary refill normal and Yes no clubbing, cyanosis or edema Psych: Appearance: grossly normal Results Labs 10/01/25 10:48 10/01/25 10:48 Labs: Laboratory Results - last 24 hr 10/01/25 10/01/25 10/01/25 10:48 13:26 14:29 MCV 79.3 L MCH 26.4 L MCHC 33.3 RDW 14.6 Plt Count 356 D MPV 9.5 Immature Gran % (Auto) Cancelled Neut % (Auto) Cancelled Lymph % (Auto) Cancelled [place] % (Auto) Cancelled Eos % (Auto) Cancelled Baso % (Auto) Cancelled Lymph # (Auto) Cancelled [place] # (Auto) Cancelled Eos # (Auto) Cancelled Baso # (Auto) Cancelled Abs Immat Gran (auto) Cancelled Absolute Neuts (auto) Cancelled Absolute Nucleated RBC 0.000 Nucleated RBC % (auto) 0.0 Neutrophils % (Manual) 82 H Band Neutrophils % 0 L Lymphocytes % (Manual) 9 L Atypical Lymphs % (Man) 1 Monocytes % (Manual) 7 Basophils % (Manual) 1 Abs Neuts (Manual) 19.6 H Lymphocytes # (Manual) 2.2 Atyp Lymphs # (Manual) 0.2 Monocytes # (Manual) 1.7 H Basophils # (Manual) 0.2 Toxic Vacuolation PRESENT Platelet Estimate NORMAL Large Platelets PRESENT Plt Morphology Comment NOTED RBC Morphology NOTED Tear Drop Cells 1+ (0-2) Felicitas Cells 1+ (0-2) Anion Gap 15 Estim Creat Clear Calc 34.9 Estimated GFR 23 Random Glucose 232 H Lactic Acid 1.7 Calcium 9.0 Magnesium 1.5 L Total Bilirubin 0.3 AST 24 ALT 28 Alkaline Phosphatase 162 H Total Protein 7.9 Albumin 4.1 Lipase 16 Beta-Hydroxybutyrate 0.11 Beta HCG, Quant < 2 Urine Color Yellow Yellow Urine Appearance Hazy Cloudy Urine pH 5.5 5.5 Ur Specific [place] 1.015 1.015 Urine Protein Trace Trace Urine Glucose (UA) Negative Negative Urine Ketones Negative Negative Urine Blood Negative Negative Urine Nitrite Negative Negative Ur Leukocyte Esterase Moderate (2+) H Moderate (2+) H Urine RBC 0-2 Urine WBC >50 H Ur Squamous Epith Cells 11-20 Urine Bacteria 4+ Hyaline Casts >20 Imaging Radiologist's Impressions: Impressions Abdomen/Pelvis CT 10/01/25 12:07 IMPRESSION: Increased fat stranding and new small amount of fluid in the pelvis. This appears greatest in the left pelvis in the left adnexal region with increasing soft tissue prominence. Etiology uncertain. Questionable mild wall thickening of the sigmoid colon. Consider possible colon, left adnexal or left distal ureteral etiology. Recommend follow-up pelvic ultrasound and consider repeat CT with oral and IV contrast. Very distended bladder. Increasing ileus. Enlarged liver. Prominent retroperitoneal lymph nodes similar to recent September 16, 2025 exam. Cannot exclude malignant process/ lymphoproliferative disease. Electronically signed by: Naomy Alan MD 10/01/2025 12:59 PM [employer] Chest X-Ray 10/01/25 14:03 IMPRESSION: Bibasilar subsegmental atelectasis. Trace left pleural effusion. Electronically signed by: Dillon Botello MD 10/01/2025 02:21 PM [facility] Assessment and Plan (1) UTI (urinary tract infection): Status: Acute Plan Patient is a 55 Y F w/ bipolar disorder, diabetes mellitus, obesity c/b obstructive sleep apnea, prior thyroid cancer s/p resection, lung cancer, and recurrent abnormal uterine bleeding, presenting to ED on 09/30 w/ chills, dysuria, and abdominal pain; ED work-up demonstrating contaminated urinalysis, though likely urinary tract infection; of note, CT A/P not suggestive of nephrolithiasis, though demonstrating L adnexal mass; patient found to be intermittently hypotensive, prompting ICU admission for c/f worsening sepsis N: no acute issues CV: hypotension, c/f worsening sepsis, to closely monitor, norepinphrine gtt as needed R: no acute issues; lung cancer GI: no acute issues; diabetic diet : acute renal insufficiency, to monitor renal indices/electrolytes H: anemia, chronic; chemical DVT prophylaxis O: recurrent abnormal uterine bleeding, CT A/P c/f L adnexal mass, to follow-up transvaginal ultrasound ID: urinary tract infection, empiric ceftriaxone, to follow-up UCx 10/01 E: thyroid cancre s/p resection, hypothyroidism, home levothyroxine P: bipolar disease, on home regimen
--- NOTE | 2025-10-01 15:52 | PHA.MEDREC ---
Addendum entered by Gil Anguiano RPh 10/01/25 16:39: MED REC REVIEWED BY [facility] Original Note: Pharmacy Consult ? Medication Reconciliation Pharmacy has completed the medication reconciliation. Spoke with pt and she confirmed her medications. Pt had a list of medications printed from her Providers Office she was able to read down to confirm med rec. Pt taking her Haloperidol 5mg tab 1/2 (2.5mg) bid, no longer taking Hydroxyzine and only on Cloazepam now for anxiety, she finished her Phenazopyridine ~2 days ago and still taking Asmenex 2 puffs BID and Spiriva 1 cap inhalation daily; claims shows Asmenex LF 01/25/25 & Spiriva LF 12/24/2024.
[2025-10-01 16:11] LABS: Glucose, Whole Blood 83 mg/dL (60-115)
[2025-10-01] MEDS: Albumin Human 25 % 100 ML 133.33 ML IV ×2 (17:21→18:11)
--- NOTE | 2025-10-01 19:00 | PC.NURSE ---
The patient arrived at the ICU approx. at 1535 from ED. Alert, oriented, RA, Clear lung sound. Sinus tachycardia. LBM 10/01, +bowel sounds. ADB tender to touch. Voiding on bedside commode. 1 peripheral IV upon arrival to the unit.
[2025-10-01 21:29] LABS: Glucose, Whole Blood 212 mg/dL (60-115)
[2025-10-02] VITALS (25 sets, daily range): BP systolic 102–130; BP diastolic 37–79; PULSE 97–123; RESP 9–28; TEMP 37.4–38.8; O2SAT 91–97; BMI 34.0
[2025-10-02 05:22] LABS: Hematocrit 29.1 % (37.0-47.0); Hemoglobin 9.6 g/dl (12.0-16.0); Imm Gran Abs Auto 0.21 X10*3/uL (0.00-0.03); Imm Gran Pct Auto 0.9 % (0.0-0.4); Lymphocytes Absolute Auto 1.1 X10*3/uL (1.2-4.9); MANUAL DIFF FLAG SCAN; Mean Corpuscular HGB Conc 33.0 g/dl (31.0-35.0); Mean Corpuscular Hemoglobin 26.4 pg (27.0-33.0); Mean Corpuscular Volume 79.9 fL (80.0-98.0); NRBC Abs Auto 0.000 X10*3/uL (0.0-0.012); NRBC Pct Auto 0.0 /100WBC (0.0-0.2); Platelet Count 319 X10*3/uL (160-400); Red Blood Count 3.64 X10*6/uL (4.20-5.50); SCAN SMEAR FLAG 1; White Blood Count 24.4 X10*3/uL (4.8-10.8)
[2025-10-02 05:39] LABS: Anion Gap 13 (12-20); Blood Urea Nitrogen 12 mg/dL (9-16); Calcium 8.5 mg/dL (8.4-10.2); Carbon Dioxide 24 mmol/L (22-29); Chloride 104 mmol/L (96-108); Creatinine Clr Calc Pharmacy 65.9; Estimated Glomerular Filt Rate 47; Magnesium 1.8 mg/dL (1.6-2.6); Potassium 4.3 mmol/L (3.3-5.1); Sodium 137 mmol/L (135-145)
[2025-10-02] MEDS: Potassium Phosphate/NS 15 MMOL/250 ML PLAST..BAG 62.5 MMOL IV (06:00)
[2025-10-02] MEDS: buPROPion HCl XL 300 MG TAB.ER.24H PO (07:44)
[2025-10-02 07:53] LABS: Glucose, Whole Blood 222 mg/dL (60-115)
[2025-10-02] MEDS: vancomycin/NS 2,000 MG/500 ML PLAST..BAG 250 MG IV (08:03)
--- NOTE | 2025-10-02 08:17 | PHA.PROG ---
Admission Date/Time: October 01, 2025 14:53 Indication: empiric therapy Weight in k.5 kg Adjusted body weight in Kg: [place] body weight in Kg: Obesity Dosing Indication % IBW: BMI 34.0 Serum Creatinine - Last 168 Hours 10/01/25 10/02/25 10:48 05:14 Creatinine 2.25 H 1.19 Estimated CrCl and GFR - Last 168 Hours 10/01/25 10/02/25 10:48 05:14 Estim Creat Clear Calc 34.9 65.9 Estimated GFR 23 47 Vancomycin Loading Dose: 2000mg X1 Current Vancomycin Dosing Regimen: 750mg Q12H Vancomycin Monitoring using AUC goal of 400 - 600 range with trough as surrogate marker: 437 Date and Time for next Vancomycin Level to be drawn: 10/03 @1800 Pharmacist Comments on Vancomycin Plan: Pt's BMI really high, starting off with 750 Q12H to see where it gets the patient. Predicted trough 14.9. Vancomycin dosing will take advantage of [employer] as a clinical decision support tool that uses Bayesian modeling to calculate individual patient's pharmacokinetic parameters and forecast the patient's drug concentration time course with the target goal AUC 24 range of 400 - 600 mg/L/hr.
--- NOTE | 2025-10-02 09:22 | PM.CCPN ---
Subjective Subjective Date of Service: 10/02/25 Interval History: no significant events Critical Care Time (minutes): 0 Physical Exam Vital Signs: Vital Signs: Last Vital Signs Temp 101.5 F H 10/02/25 08:00 Pulse 114 H 10/02/25 09:00 Resp 24 H 10/02/25 09:00 BP 116/56 L 10/02/25 09:00 Pulse Ox 96 10/02/25 09:00 O2 Del Method Nasal Cannula 10/02/25 09:00 O2 Flow Rate 2 10/02/25 09:00 BMI result Body Mass Index 34.0 Const: General: cooperative, healthy appearing, comfortable, no acute distress, well developed, alert, awake and Physically active Orientation/consciousness: patient oriented x3 HEENT: Head: Yes normal to inspection, Yes normocephalic and Yes atraumatic Eyes: General: appearance normal, both eyes and all related structures Neck: Neck: Yes normal visual inspection, Yes full ROM, Yes no meningeal signs, Yes trachea midline and Yes supple Chest: Chest palpation & inspection: normal inspection of the chest Resp: Other: no appreciable overt rales, rhonchi, wheezing Effort & Inspection: normal respiratory effort Cardio: Rate: tachycardic Rhythm: regular rhythm GI: Other: distended, though soft, compressible; some appreciable tenderness to palpation L greater than R; no appreciable guarding, rebound Skin: General skin exam: no rashes or lesions noted Neuro: General: patient oriented x3, tone normal, moves all extremities, no meningeal signs and no focal motor deficits Extrem: General: Yes normal to inspection, Yes full ROM, Yes capillary refill normal and Yes no clubbing, cyanosis or edema Psych: Appearance: grossly normal Objective Data Labs 10/02/25 05:14 10/02/25 05:14 Labs: Laboratory Results - last 24 hr 10/01/25 10/01/25 10/01/25 10:48 13:26 14:29 WBC 23.9 H RBC 4.01 L Hgb 10.6 L Hct 31.8 L MCV 79.3 L MCH 26.4 L MCHC 33.3 RDW 14.6 Plt Count 356 D MPV 9.5 Immature Gran % (Auto) Cancelled Neut % (Auto) Cancelled Lymph % (Auto) Cancelled [place] % (Auto) Cancelled Eos % (Auto) Cancelled Baso % (Auto) Cancelled Lymph # (Auto) Cancelled [place] # (Auto) Cancelled Eos # (Auto) Cancelled Baso # (Auto) Cancelled Abs Immat Gran (auto) Cancelled Absolute Neuts (auto) Cancelled Absolute Nucleated RBC 0.000 Nucleated RBC % (auto) 0.0 Neutrophils % (Manual) 82 H Band Neutrophils % 0 L Lymphocytes % (Manual) 9 L Atypical Lymphs % (Man) 1 Monocytes % (Manual) 7 Basophils % (Manual) 1 Abs Neuts (Manual) 19.6 H Lymphocytes # (Manual) 2.2 Atyp Lymphs # (Manual) 0.2 Monocytes # (Manual) 1.7 H Basophils # (Manual) 0.2 Toxic Vacuolation PRESENT Platelet Estimate NORMAL Large Platelets PRESENT Plt Morphology Comment NOTED RBC Morphology NOTED Tear Drop Cells 1+ (0-2) Felicitas Cells 1+ (0-2) Smear Tech's Comments Sodium 131 L Potassium 4.6 Chloride 95 L Carbon Dioxide 26 Anion Gap 15 BUN 24 H Creatinine 2.25 H Estim Creat Clear Calc 34.9 Estimated GFR 23 POC Glucose Random Glucose 232 H Lactic Acid 1.7 Calcium 9.0 Phosphorus Magnesium 1.5 L Total Bilirubin 0.3 AST 24 ALT 28 Alkaline Phosphatase 162 H Total Protein 7.9 Albumin 4.1 Lipase 16 Beta-Hydroxybutyrate 0.11 Beta HCG, Quant < 2 Urine Color Yellow Yellow Urine Appearance Hazy Cloudy Urine pH 5.5 5.5 Ur Specific [place] 1.015 1.015 Urine Protein Trace Trace Urine Glucose (UA) Negative Negative Urine Ketones Negative Negative Urine Blood Negative Negative Urine Nitrite Negative Negative Ur Leukocyte Esterase Moderate (2+) H Moderate (2+) H Urine RBC 0-2 0-2 Urine WBC >50 H >50 H Ur Squamous Epith Cells 11-20 11-20 Urine Bacteria 4+ 2+ Hyaline Casts >20 11-10/01/25 10/01/25 10/02/25 16:08 21:26 05:14 WBC 24.4 H RBC 3.64 L Hgb 9.6 L Hct 29.1 L MCV 79.9 L MCH 26.4 L MCHC 33.0 RDW 14.6 Plt Count 319 MPV 9.5 Immature Gran % (Auto) 0.9 H Neut % (Auto) 87.3 H Lymph % (Auto) 4.6 L [place] % (Auto) 6.9 Eos % (Auto) 0.1 Baso % (Auto) 0.2 Lymph # (Auto) 1.1 L [place] # (Auto) 1.7 H Eos # (Auto) 0.0 Baso # (Auto) 0.1 Abs Immat Gran (auto) 0.21 H Absolute Neuts (auto) 21.3 H Absolute Nucleated RBC 0.000 Nucleated RBC % (auto) 0.0 Neutrophils % (Manual) Band Neutrophils % Lymphocytes % (Manual) Atypical Lymphs % (Man) Monocytes % (Manual) Basophils % (Manual) Abs Neuts (Manual) Lymphocytes # (Manual) Atyp Lymphs # (Manual) Monocytes # (Manual) Basophils # (Manual) Toxic Vacuolation Platelet Estimate Large Platelets Plt Morphology Comment RBC Morphology Tear Drop Cells [place] Cells Smear Tech's Comments VERIFIED Sodium 137 Potassium 4.3 Chloride 104 Carbon Dioxide 24 Anion Gap 13 BUN 12 Creatinine 1.19 Estim Creat Clear Calc 65.9 Estimated GFR 47 POC Glucose 83 212 H Random Glucose 243 H Lactic Acid Calcium 8.5 Phosphorus 2.0 L Magnesium 1.8 Total Bilirubin AST ALT Alkaline Phosphatase Total Protein Albumin Lipase Beta-Hydroxybutyrate Beta HCG, Quant Urine Color Urine Appearance Urine pH Ur Specific [place] Urine Protein Urine Glucose (UA) Urine Ketones Urine Blood Urine Nitrite Ur Leukocyte Esterase Urine RBC Urine WBC Ur Squamous Epith Cells Urine Bacteria Hyaline Casts 10/02/25 10/02/25 06:44 07:50 WBC RBC Hgb Hct MCV MCH MCHC RDW Plt Count MPV Immature Gran % (Auto) Neut % (Auto) Lymph % (Auto) [place] % (Auto) Eos % (Auto) Baso % (Auto) Lymph # (Auto) [place] # (Auto) Eos # (Auto) Baso # (Auto) Abs Immat Gran (auto) Absolute Neuts (auto) Absolute Nucleated RBC Nucleated RBC % (auto) Neutrophils % (Manual) Band Neutrophils % Lymphocytes % (Manual) Atypical Lymphs % (Man) Monocytes % (Manual) Basophils % (Manual) Abs Neuts (Manual) Lymphocytes # (Manual) Atyp Lymphs # (Manual) Monocytes # (Manual) Basophils # (Manual) Toxic Vacuolation Platelet Estimate Large Platelets Plt Morphology Comment RBC Morphology Tear Drop Cells [place] Cells Smear Tech's Comments Sodium Potassium Chloride Carbon Dioxide Anion Gap BUN Creatinine Estim Creat Clear Calc Estimated GFR POC Glucose 222 H Random Glucose Lactic Acid 1.0 Calcium Phosphorus Magnesium Total Bilirubin AST ALT Alkaline Phosphatase Total Protein Albumin Lipase Beta-Hydroxybutyrate Beta HCG, Quant Urine Color Urine Appearance Urine pH Ur Specific [place] Urine Protein Urine Glucose (UA) Urine Ketones Urine Blood Urine Nitrite Ur Leukocyte Esterase Urine RBC Urine WBC Ur Squamous Epith Cells Urine Bacteria Hyaline Casts Progress Note: A&P Assessment and plan (1) Sepsis: Status: Acute (2) UTI (urinary tract infection): Status: Acute Plan Patient is a 55 Y F w/ bipolar disorder, diabetes mellitus, obesity c/b obstructive sleep apnea, prior thyroid cancer s/p resection, lung cancer, and recurrent abnormal uterine bleeding, presenting to ED on 09/30 w/ chills, dysuria, and abdominal pain; ED work-up demonstrating contaminated urinalysis, though likely urinary tract infection; of note, CT A/P not suggestive of nephrolithiasis, though demonstrating L adnexal mass; patient found to be intermittently hypotensive, prompting ICU admission for c/f worsening sepsis N: no acute issues CV: hypotension, c/f worsening sepsis, to closely monitor, norepinphrine gtt as needed R: no acute issues; lung cancer GI: no acute issues; diabetic diet : acute renal insufficiency, improving, to monitor renal indices/electrolytes H: anemia, chronic; chemical DVT prophylaxis O: recurrent abnormal uterine bleeding, CT A/P c/f L adnexal mass, to follow-up transvaginal ultrasound ID: urinary tract infection, of note prior ESBL UTI, empiric ertapenem, to follow-up UCx 10/01 E: thyroid cancre s/p resection, hypothyroidism, home levothyroxine P: bipolar disease, on home regimen Quality Stroke Does the patient have a stroke diagnosis?: No VTE Prior VTE?: No VTE Risk Level:: Medical - moderate - high VTE Device Contraindication: N/A - Device Ordered VTE Drug Contraindication: N/A - Med Ordered
--- NOTE | 2025-10-02 11:48 | ECG_ITS ---
Test Reason : QTc Monitoring Blood Pressure : */* mmHG Vent. Rate : 115 BPM Atrial Rate : 115 BPM P-R Int : 158 ms QRS Dur : 92 ms QT Int : 312 ms P-R-T Axes : 65 -14 68 degrees QTcB Int : 431 ms Sinus tachycardia Low voltage QRS Cannot rule out Anterior infarct (cited on or before 16-Sep-2025) Abnormal ECG When compared with ECG of 16-Sep-2025 11:50, No significant change was found Referred By: Emy Ro Electronically Signed By: CECELIA ODELL
[2025-10-02 11:54] LABS: Glucose, Whole Blood 166 mg/dL (60-115)
--- NOTE | 2025-10-02 14:04 | MHC.CM.PN ---
Met with pt and spouse to review d/c planning needs: pt resides w/spouse and adult children who are able to assist if needed. Pt has no DME or services. Pt may need [facility] shuttle if her spouse is working at d/c - may be able to obtain an UBER. No services anticipated. IMM in chart. HCP declined. CM to follow.
[2025-10-02 16:26] LABS: Glucose, Whole Blood 170 mg/dL (60-115)
--- NOTE | 2025-10-02 18:37 | PC.NURSE ---
Assumed of patient 0700. Patient transported with RN to Radiology/Ultrasound for transvaginal US at 10:00AM. Patient pre-medicated with 2 mg morphine once due to high level of pain with prior attempt of US on 10/01. Tolerated test well. In the morning, patient stated mild nausea, no vomiting. Patient tolerated small amount of PO intake for breakfast and lunch approx 25%. Patient started eating dinner approx 16:45 and vomited once. PRN zofran given. Temperature monitored with urena core temp, Tmax 101.7 F. MD aware. PRN 650 mg tylenol PO given approx 0900, PRN IV tylenol 1000 mg given once approx 15:00. Urena in place for retention. Patient ambulated in hallway with RN 1 assist with walker.
[2025-10-02 20:37] LABS: Glucose, Whole Blood 141 mg/dL (60-115)
--- NOTE | 2025-10-02 21:51 | W.PM.IDCN ---
History of Present Illness Data of Consult Service Date: 10/02/25 Requesting physician: Emy Ro Primary Care Provider: Linda Murphy DO HPI Reason for consult: septic shock She presents from [facility] with dizziness and visual changes send by Dr Clayton her PCP there. She has had four days of dizziness and some vague discomfort abdomen before this. She had ESBL 50-100,000 in urine in 2021. She more recently 11/21 had E coli urine sensitive to all except Ampicillin. She feels better now. She is still on norepinephrine. Review of Systems Review of Systems: Yes all other systems are reviewed and are negative [facility] Past Medical History Medical History Primary malignant neoplasm of left lower lobe of lung History of thyroid cancer Hx of radiation therapy Postoperative hypothyroidism Sciatica of right side Back pain Arthritis Anemia Anxiety On home oxygen therapy Incomplete right bundle branch block (RBBB) Uterine fibroid DANIEL (obstructive sleep apnea) Cervical cancer Schizoaffective disorder Pancreatitis Type 2 diabetes mellitus JESICA positive Vitamin D deficiency Morbid obesity Sacroiliitis Multinodular goiter HLD (hyperlipidemia) COPD (chronic obstructive pulmonary disease) GERD (gastroesophageal reflux disease) Bipolar 1 disorder Hypercalcemia Goiter Family History Family History Father Bipolar 1 disorder Mother Diabetes mellitus Hypertension Hyperlipidemia COPD (chronic obstructive pulmonary disease) Paternal Aunt Breast cancer Sister Cervical cancer Family history: reviewed and not pertinent Surgical History Surgical History History of lobectomy of lung History of tubal ligation History of cholecystectomy History of total thyroidectomy Social History Social History Household Members: Spouse and Children Household Members Other:: duplex Housing: Apartment Are you a primary emergency care tech to a significant other at home: No Do you presently have visiting nurse or other home services: No Alcohol intake: never Comment: Pt refusing bed alarm, agrees to ring call raza for assist. with ambulation Patient Tobacco Use Status: Former Tobacco user Tobacco use type: Cigarette Smoked in Last 30 Days: No Second Hand Smoke Exposure: No Substance Use Type: Marijuana Currently Displaying Signs/Symptoms of Drug Intoxication Withdrawal: No Have you been hit, kicked, punched, or otherwise hurt by someone within the past year? 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: Yes (Stress) Meds Allergies Allergy/AdvReac Type Severity Reaction Status Date / Time oxycodone (Percocet) Allergy Intermediate stomach Verified 10/01/25 10:32 pain SEASONAL ALLERGIES Allergy Unknown UNKNOWN Uncoded 09/16/25 09:13 Active Medications: Current Medications Albuterol/Ipratropium (Albuterol/Iprat 2.5/0.5mg 3 Ml Ampul.Neb) 3 ml INHALE RQ4H WHILE AWAKE PRN PRN Reason: Wheezing Aripiprazole (Aripiprazole 20 Mg Tablet) 20 mg PO BEDTIME RACHEL Last Admin: 10/02/25 20:33 Dose: 20 mg Aspirin (Aspirin 81 Mg Tab.Chew) 81 mg PO DAILY RACHEL Last Admin: 10/02/25 07:44 Dose: 81 mg Atorvastatin Calcium (Atorvastatin Calcium 40 Mg Tablet) 40 mg PO BEDTIME RACHEL Last Admin: 10/02/25 20:34 Dose: 40 mg Baclofen (Baclofen 10 Mg Tablet) 10 mg PO TID PRN PRN Reason: Muscle Spasm Bupropion HCl (Bupropion Hcl Xl 300 Mg Tab.Er.24h) 300 mg PO DAILY [facility] Last Admin: 10/02/25 07:44 Dose: 300 mg Clonazepam (Clonazepam 0.5 Mg Tablet) 0.5 mg PO BID PRN PRN Reason: Anxiety Last Admin: 10/02/25 20:33 Dose: 0.5 mg Dextrose (Dextrose 50 % 25 Gm/50 Ml Syringe) 25 gm IVPUSH Q15M PRN; Protocol PRN Reason: per Hypoglycemia Standing Ord. Enoxaparin Sodium (Enoxaparin Sodium 40 Mg/0.4 Ml Syringe) 40 mg SUBCUT Q24H RACHEL Last Admin: 10/02/25 14:45 Dose: 40 mg Gabapentin (Gabapentin 600 Mg Tablet) 600 mg PO TID [facility] Last Admin: 10/02/25 20:33 Dose: 600 mg Glucose (Glucose Gel 15 Gm Gel..Gram.) 15 gm PO Q15M PRN; Protocol PRN Reason: per Hypoglycemia Standing Ord. Norepinephrine Bitartrate (Levophed) 8 mg in 250 mls @ 0 mls/hr IV .Q0M RACHEL; Protocol Vancomycin HCl 750 mg/ Sodium (Chloride) 265 mls @ 265 mls/hr IV Q12H [facility] Last Infusion: 10/02/25 20:29 Dose: Infused Acetaminophen (Ofirmev) 1,000 mg in 100 mls @ 400 mls/hr IV Q6H PRN PRN Reason: Fever Last Infusion: 10/02/25 15:18 Dose: Infused Insulin Human Lispro (Insulin Lispro 100 Unit/Ml 3 Ml Vial) 0 unit SUBCUT QIDACHS [facility]; Protocol Last Admin: 10/02/25 21:00 Dose: Not Given Levothyroxine Sodium (Levothyroxine Sodium 200 Mcg Tablet) 400 mcg PO DAILY@0600 [facility] Last Admin: 10/02/25 05:25 Dose: 400 mcg Meropenem (Meropenem 1 Gm Vial) 1 gm IV Q8H [facility] Last Admin: 10/02/25 18:19 Dose: 1 gm Ondansetron HCl (Ondansetron Hcl 4 Mg/2 Ml Vial) 4 mg IVPUSH Q4H PRN PRN Reason: Nausea and Vomiting Last Admin: 10/02/25 16:53 Dose: 4 mg Pharmacy Consult (Consult Rx Vancomycin Dosing) 1 each MISCELLANE DAILY PRN PRN Reason: Consult order Tramadol HCl (Tramadol Hcl 50 Mg Tablet) 50 mg PO Q8H PRN PRN Reason: severe pain Last Admin: 10/02/25 03:29 Dose: 50 mg Home Medications ?Medication ?Instructions ?Recorded ?Confirmed ?Last Taken ?Type lisinopril 2.5 mg tablet 2.5 mg PO DAILY@1200 09/05/20 10/01/25 10/01/25 History metformin 500 mg tablet,extended 1,000 mg PO BID 09/05/20 10/01/25 10/01/25 History release 24 hr acetaminophen 650 mg 650 mg PO Q8H PRN Pain 04/24/21 10/01/25 Unknown History tablet,extended release albuterol sulfate 90 mcg/actuation 2 puff inhalation QID PRN Wheezing 04/24/21 10/01/25 02/11/25 05:00 History aerosol inhaler atorvastatin 40 mg tablet 40 mg PO BEDTIME 04/24/21 10/01/25 10/01/25 History glipizide 5 mg tablet 10 mg PO BID 04/24/21 10/01/25 10/01/25 History haloperidol 5 mg tablet 2.5 mg PO BID 04/24/21 10/01/25 10/01/25 History bupropion HCl 300 mg 24 hr tablet, 300 mg PO DAILY 06/07/22 10/01/25 10/01/25 History extended release aripiprazole 20 mg tablet 20 mg PO BEDTIME 09/24/22 10/01/25 10/01/25 History aspirin 81 mg tablet,delayed 81 mg PO DAILY 09/24/22 10/01/25 10/01/25 History release bupropion HCl 150 mg 24 hr tablet, 150 mg PO DAILY 09/24/22 10/01/25 10/01/25 History extended release clonazepam 1 mg tablet (Klonopin) 1 mg PO BID PRN Anxiety 04/04/23 10/01/25 10/01/25 History semaglutide 7 mg tablet (Rybelsus) 7 mg PO DAILY 12/15/24 10/01/25 10/01/25 History loratadine 10 mg tablet 10 mg PO DAILY 02/01/25 10/01/25 10/01/25 History montelukast 10 mg tablet 10 mg PO BEDTIME 02/01/25 10/01/25 10/01/25 History pantoprazole 20 mg tablet,delayed 20 mg PO BID 02/01/25 10/01/25 10/01/25 History release ascorbic acid (vitamin C) 250 mg 250 mg PO BID@1200,2100 02/11/25 10/01/25 10/01/25 History tablet ferrous fumarate 324 mg (106 mg 324 mg PO DAILY 02/11/25 10/01/25 10/01/25 History iron) tablet (Ferrocite) ipratropium 0.5 mg-albuterol 3 mg 3 ml inhalation QID PRN asthma 02/11/25 10/01/25 10/01/25 History (2.5 mg base)/3 mL nebulization soln omega-3 fatty acids 1,000 mg 1,000 mg PO DAILY 02/11/25 10/01/25 10/01/25 History capsule vit no.95-ferrous 1 tab PO DAILY 02/11/25 10/01/25 10/01/25 History fumarate 28 mg-folic acid 800 mcg tablet () tramadol 50 mg tablet 50 mg PO Q8H PRN severe pain 02/11/25 10/01/25 10/01/25 History baclofen 10 mg tablet 10 mg PO TID PRN muscle spasm 10/01/25 10/01/25 10/01/25 History diclofenac sodium 1 % topical gel 2 g topical QID PRN pain 10/01/25 10/01/25 10/01/25 History gabapentin 600 mg tablet 600 mg PO TID 10/01/25 10/01/25 10/01/25 History levothyroxine 200 mcg/mL oral 400 mcg PO DAILY@0200 10/01/25 10/01/25 10/01/25 History solution (Tirosint-Michelle) mometasone 100 mcg/actuation HFA 2 puff inhalation BID 10/01/25 10/01/25 10/01/25 History aerosol inhaler (Asmanex HFA) tiotropium bromide 18 mcg capsule 1 cap inhalation DAILY 10/01/25 10/01/25 10/01/25 History with inhalation device (Spiriva with HandiHaler) Physical Exam Vital Signs: Vital Signs: Last Vital Signs Temp 101.7 F H 10/02/25 21:00 Pulse 117 H 10/02/25 21:00 Resp 23 H 10/02/25 21:00 BP 116/37 L 10/02/25 18:00 Pulse Ox 93 10/02/25 21:00 O2 Del Method Nasal Cannula 10/02/25 21:00 O2 Flow Rate 2 10/02/25 21:00 BMI result Body Mass Index 34.0 Const: General: cooperative HEENT: Head: Yes normal to inspection Face and sinus: Yes normal facial exam Mouth: Normal oral and palatal mucosa present Teeth and gingiva: dentition normal Eyes: General: appearance normal, both eyes and all related structures Pupils: Equal, round and reactive pupils present Resp: Effort & Inspection: normal respiratory effort Cardio: Rate: regular rate Rhythm: regular rhythm GI: Palpation (GI): Soft to palpation and nontender : General: Yes no CVA tenderness Back/Spine/Pelvis: Back: no CVA tenderness Skin: General skin exam: no rashes or lesions noted Neuro: General: moves all extremities Cranial nerves: Yes Equal, round and reactive pupils present Extrem: General: Yes normal to inspection Psych: Appearance: grossly normal Results Labs 10/02/25 05:14 10/02/25 05:14 Labs: Short CBC 10/02/25 Range/Units 05:14 WBC 24.4 H (4.8-10.8) X10*3/uL Hgb 9.6 L (12.0-16.0) g/dl Hct 29.1 L (37.0-47.0) % Plt Count 319 (160-400) X10*3/uL BMP 10/02/25 05:14 Sodium 137 Potassium 4.3 Chloride 104 Carbon Dioxide 24 BUN 12 Creatinine 1.19 Calcium 8.5 Microbiology Microbiology Results: Microbiology 10/01/25 10:48 Blood - Venous Blood Culture - Preliminary No growth after 24 hours. 10/01/25 10:46 Blood - Venous Blood Culture - Preliminary No growth after 24 hours. 10/01/25 14:28 Urine clean catch - Clean Catch Midstream Urine Culture - Final Assessment and Plan (1) Leucocytosis: Qualifiers: Leukocytosis type: unspecified Qualified Code(s): D72.829 - Elevated white blood cell count, unspecified Status: Acute (2) Sepsis: Status: Acute Plan There is probable E coli sepsis CT scan was obtained to evaluate ?urinary obstruction but this does not to appears to be clearly seen. There is no ESBL or any other organism seen in urine or blood. Can maintain Merem for now but change Merem to Cefriaxone and stop Vancomycin tomorrow if no organisms identified in blood or urine. Await final blood cultures and evaluation of any lymph nodes or obstruction in abdomen ( patient has lung malignancy so need to evaluate for any potential metastatic areas
[2025-10-03] VITALS (23 sets, daily range): BP systolic 99–120; BP diastolic 47–77; PULSE 99–117; RESP 12–30; TEMP 36.8–38.7; O2SAT 87–97; BMI 33.8
[2025-10-03 05:03] LABS: Hematocrit 28.7 % (37.0-47.0); Hemoglobin 9.5 g/dl (12.0-16.0); Imm Gran Abs Auto 0.41 X10*3/uL (0.00-0.03); Imm Gran Pct Auto 1.5 % (0.0-0.4); Lymphocytes Absolute Auto 1.3 X10*3/uL (1.2-4.9); MANUAL DIFF FLAG NO; Mean Corpuscular HGB Conc 33.1 g/dl (31.0-35.0); Mean Corpuscular Hemoglobin 26.6 pg (27.0-33.0); Mean Corpuscular Volume 80.4 fL (80.0-98.0); NRBC Abs Auto 0.000 X10*3/uL (0.0-0.012); NRBC Pct Auto 0.0 /100WBC (0.0-0.2); Platelet Count 345 X10*3/uL (160-400); Red Blood Count 3.57 X10*6/uL (4.20-5.50); SCAN SMEAR FLAG 1; White Blood Count 27.2 X10*3/uL (4.8-10.8)
[2025-10-03 05:18] LABS: Anion Gap 13 (12-20); Blood Urea Nitrogen 9 mg/dL (9-16); Calcium 8.4 mg/dL (8.4-10.2); Carbon Dioxide 25 mmol/L (22-29); Chloride 104 mmol/L (96-108); Creatinine Clr Calc Pharmacy 62.7; Estimated Glomerular Filt Rate 45; Magnesium 1.7 mg/dL (1.6-2.6); Potassium 4.1 mmol/L (3.3-5.1); Sodium 138 mmol/L (135-145)
[2025-10-03 07:14] LABS: Glucose, Whole Blood 211 mg/dL (60-115)
[2025-10-03] MEDS: buPROPion HCl XL 300 MG TAB.ER.24H PO (07:47)
--- NOTE | 2025-10-03 08:45 | PM.CCPN ---
Subjective Subjective Date of Service: 10/03/25 Interval History: no significant overnight events; persistent fever, soft blood pressures Critical Care Time (minutes): 0 Physical Exam Vital Signs: Vital Signs: Last Vital Signs Temp 100.6 F H 10/03/25 08:00 Pulse 112 H 10/03/25 08:00 Resp 18 10/03/25 08:00 BP 120/70 10/03/25 08:00 Pulse Ox 94 10/03/25 08:00 O2 Del Method Room Air 10/03/25 08:00 O2 Flow Rate 2 10/03/25 07:00 BMI result Body Mass Index 33.8 Const: General: cooperative, healthy appearing, comfortable, no acute distress, well developed, alert, awake and Physically active Orientation/consciousness: patient oriented x3 HEENT: Head: Yes normal to inspection, Yes normocephalic and Yes atraumatic Eyes: General: appearance normal, both eyes and all related structures Neck: Neck: Yes normal visual inspection, Yes full ROM, Yes no meningeal signs, Yes trachea midline and Yes supple Chest: Chest palpation & inspection: normal inspection of the chest Resp: Other: no appreciable rales, rhonchi, wheezing Effort & Inspection: normal respiratory effort Cardio: Rate: regular rate Rhythm: regular rhythm GI: Other: abdomen distended, though soft, compressible; some tenderness to palpation L greater than R; no appreciable guarding, rebound Skin: General skin exam: no rashes or lesions noted Neuro: General: patient oriented x3, tone normal, moves all extremities, no meningeal signs and no focal motor deficits Extrem: General: Yes normal to inspection, Yes full ROM, Yes capillary refill normal and Yes no clubbing, cyanosis or edema Psych: Appearance: grossly normal Objective Data Labs 10/03/25 04:55 10/03/25 04:55 Labs: Laboratory Results - last 24 hr 10/02/25 10/02/25 10/02/25 11:50 16:22 20:35 WBC RBC Hgb Hct MCV MCH MCHC RDW Plt Count MPV Immature Gran % (Auto) Neut % (Auto) Lymph % (Auto) [place] % (Auto) Eos % (Auto) Baso % (Auto) Lymph # (Auto) [place] # (Auto) Eos # (Auto) Baso # (Auto) Abs Immat Gran (auto) Absolute Neuts (auto) Absolute Nucleated RBC Nucleated RBC % (auto) Sodium Potassium Chloride Carbon Dioxide Anion Gap BUN Creatinine Estim Creat Clear Calc Estimated GFR POC Glucose 166 H 170 H 141 H Random Glucose Calcium Phosphorus Magnesium 10/03/25 10/03/25 04:55 07:10 WBC 27.2 H RBC 3.57 L Hgb 9.5 L Hct 28.7 L MCV 80.4 MCH 26.6 L MCHC 33.1 RDW 14.8 Plt Count 345 MPV 9.8 Immature Gran % (Auto) 1.5 H Neut % (Auto) 88.0 H Lymph % (Auto) 4.7 L [place] % (Auto) 5.0 Eos % (Auto) 0.4 Baso % (Auto) 0.4 Lymph # (Auto) 1.3 [place] # (Auto) 1.4 H Eos # (Auto) 0.1 Baso # (Auto) 0.1 Abs Immat Gran (auto) 0.41 H Absolute Neuts (auto) 23.9 H Absolute Nucleated RBC 0.000 Nucleated RBC % (auto) 0.0 Sodium 138 Potassium 4.1 Chloride 104 Carbon Dioxide 25 Anion Gap 13 BUN 9 Creatinine 1.25 Estim Creat Clear Calc 62.7 Estimated GFR 45 POC Glucose 211 H Random Glucose 160 H Calcium 8.4 Phosphorus 2.7 Magnesium 1.7 Microbiology Microbiology Results: Microbiology 10/01/25 10:48 Blood - Venous Blood Culture - Preliminary No growth after 24 hours. 10/01/25 10:46 Blood - Venous Blood Culture - Preliminary No growth after 24 hours. 10/01/25 14:28 Urine clean catch - Clean Catch Midstream Urine Culture - Final Progress Note: A&P Assessment and plan (1) UTI (urinary tract infection): Status: Acute (2) Sepsis: Status: Acute Plan Patient is a 55 Y F w/ bipolar disorder, diabetes mellitus, obesity c/b obstructive sleep apnea, prior thyroid cancer s/p resection, lung cancer, and recurrent abnormal uterine bleeding, presenting to ED on 09/30 w/ chills, dysuria, and abdominal pain; ED work-up demonstrating contaminated urinalysis, though likely urinary tract infection; of note, CT A/P not suggestive of nephrolithiasis, though demonstrating L adnexal mass; patient found to be intermittently hypotensive, prompting ICU admission for c/f worsening sepsis N: no acute issues CV: hypotension, c/f worsening sepsis, to closely monitor, norepinphrine gtt as needed R: no acute issues; lung cancer GI: ileus, which may be related to possible intra-abdominal malignancy; NPO, NG tube to intermittent suction : acute renal insufficiency, improving, to monitor renal indices/electrolytes H: anemia, chronic; chemical DVT prophylaxis O: recurrent abnormal uterine bleeding, CT A/P 09/30 c/f L adnexal mass, TVUS 10/02 unrevealing d/t ileus, to perform MRI A/P when tolerated, appreciate general surgery recommendations ID: urinary tract infection, of note prior ESBL UTI, empiric meropenem, to follow-up UCx 10/01 E: thyroid cancer s/p resection, hypothyroidism, on home levothyroxine P: bipolar disease, on home regimen Quality Stroke Does the patient have a stroke diagnosis?: No VTE Prior VTE?: No VTE Risk Level:: Medical - moderate - high VTE Device Contraindication: N/A - Device Ordered VTE Drug Contraindication: N/A - Med Ordered
[2025-10-03 11:08] LABS: Glucose, Whole Blood 231 mg/dL (60-115)
--- NOTE | 2025-10-03 11:48 | ECG_ITS ---
Test Reason : QTc Monitoring Blood Pressure : */* mmHG Vent. Rate : 113 BPM Atrial Rate : 113 BPM P-R Int : 156 ms QRS Dur : 84 ms QT Int : 324 ms P-R-T Axes : 68 -17 61 degrees QTcB Int : 444 ms Sinus tachycardia Low voltage QRS Cannot rule out Anterior infarct (cited on or before 16-Sep-2025) Abnormal ECG When compared with ECG of 02-Oct-2025 14:55, No significant change was found Referred By: Emy Ro Electronically Signed By: Ion Ahumada
--- NOTE | 2025-10-03 17:40 | PM.CNGS ---
History of Present Illness Consult details Consult date: 10/03/25 Narrative: Pt known to the surgical service with hx of left lung cancer and s/p lobectomy and now admitted in icu with elevated wbc and . pt has complained of not having a good bowel movement in a week - not passing gas for a few days. ct scan of abdo pelvis showing lower pelvic mass/inflammation -?etiology- mri pending to rule out malignant process. Review of Systems Review of Systems: Yes all other systems are reviewed and are negative PMFSH Past Medical History Medical History Primary malignant neoplasm of left lower lobe of lung History of thyroid cancer Hx of radiation therapy Postoperative hypothyroidism Sciatica of right side Back pain Arthritis Anemia Anxiety On home oxygen therapy Incomplete right bundle branch block (RBBB) Uterine fibroid DANIEL (obstructive sleep apnea) Cervical cancer Schizoaffective disorder Pancreatitis Type 2 diabetes mellitus JESICA positive Vitamin D deficiency Morbid obesity Sacroiliitis Multinodular goiter HLD (hyperlipidemia) COPD (chronic obstructive pulmonary disease) GERD (gastroesophageal reflux disease) Bipolar 1 disorder Hypercalcemia Goiter Family History Family History Father Bipolar 1 disorder Mother Diabetes mellitus Hypertension Hyperlipidemia COPD (chronic obstructive pulmonary disease) Paternal Aunt Breast cancer Sister Cervical cancer Family history: reviewed and not pertinent Surgical History Surgical History History of lobectomy of lung History of tubal ligation History of cholecystectomy History of total thyroidectomy Social History Social History Household Members: Spouse and Children Household Members Other:: duplex Housing: Apartment Are you a primary home care physical therapist to a significant other at home: No Do you presently have visiting nurse or other home services: No Alcohol intake: never Comment: Pt refusing bed alarm, agrees to ring call raza for assist. with ambulation Patient Tobacco Use Status: Former Tobacco user Tobacco use type: Cigarette Smoked in Last 30 Days: No Second Hand Smoke Exposure: No Substance Use Type: Marijuana Currently Displaying Signs/Symptoms of Drug Intoxication Withdrawal: No Have you been hit, kicked, punched, or otherwise hurt by someone within the past year? 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: Yes (Stress) Meds Allergies Allergy/AdvReac Type Severity Reaction Status Date / Time oxycodone (Percocet) Allergy Intermediate stomach Verified 10/01/25 10:32 pain SEASONAL ALLERGIES Allergy Unknown UNKNOWN Uncoded 09/16/25 09:13 Active Medications: Current Medications Albuterol/Ipratropium (Albuterol/Iprat 2.5/0.5mg 3 Ml Ampul.Neb) 3 ml INHALE RQ4H WHILE AWAKE PRN PRN Reason: Wheezing Aripiprazole (Aripiprazole 20 Mg Tablet) 20 mg PO BEDTIME RACHEL On Hold: 10/03/25 09:25 Last Admin: 10/02/25 20:33 Dose: 20 mg Aspirin (Aspirin 81 Mg Tab.Chew) 81 mg PO DAILY RACHEL On Hold: 10/03/25 09:17 Last Admin: 10/03/25 07:47 Dose: 81 mg Atorvastatin Calcium (Atorvastatin Calcium 40 Mg Tablet) 40 mg PO BEDTIME RACHEL On Hold: 10/03/25 09:17 Last Admin: 10/02/25 20:34 Dose: 40 mg Baclofen (Baclofen 10 Mg Tablet) 10 mg PO TID PRN PRN Reason: Muscle Spasm Bupropion HCl (Bupropion Hcl Xl 300 Mg Tab.Er.24h) 300 mg PO DAILY RACHEL On Hold: 10/03/25 09:40 Last Admin: 10/03/25 07:47 Dose: 300 mg Dextrose (Dextrose 50 % 25 Gm/50 Ml Syringe) 25 gm IVPUSH Q15M PRN; Protocol PRN Reason: per Hypoglycemia Standing Ord. Enoxaparin Sodium (Enoxaparin Sodium 40 Mg/0.4 Ml Syringe) 40 mg SUBCUT Q24H RACHEL Last Admin: 10/03/25 14:36 Dose: 40 mg Gabapentin (Gabapentin 600 Mg Tablet) 600 mg PO TID RACHEL On Hold: 10/03/25 11:20 Last Admin: 10/03/25 07:47 Dose: 600 mg Glucose (Glucose Gel 15 Gm Gel..Gram.) 15 gm PO Q15M PRN; Protocol PRN Reason: per Hypoglycemia Standing Ord. Haloperidol Lactate (Haloperidol Lactate 5 Mg/Ml Vial) 0.5 mg IVPUSH Q6H PRN PRN Reason: Nausea Norepinephrine Bitartrate (Levophed) 8 mg in 250 mls @ 0 mls/hr IV .Q0M RACHEL; Protocol Vancomycin HCl 750 mg/ Sodium (Chloride) 265 mls @ 265 mls/hr IV Q12H [facility] Last Infusion: 10/03/25 09:24 Dose: Infused Acetaminophen (Ofirmev) 1,000 mg in 100 mls @ 400 mls/hr IV Q6H PRN PRN Reason: Fever Last Infusion: 10/03/25 10:06 Dose: Infused Insulin Human Lispro (Insulin Lispro 100 Unit/Ml 3 Ml Vial) 0 unit SUBCUT Q6H [facility]; Protocol Last Admin: 10/03/25 11:16 Dose: 4 unit Ketorolac Tromethamine (Ketorolac Tromethamine 15 Mg/Ml Vial) 15 mg IVPUSH Q12H PRN PRN Reason: Fever >100.4 Last Admin: 10/03/25 15:17 Dose: 15 mg Levothyroxine Sodium (Levothyroxine Sodium 100 Mcg/5 Ml Vial) 100 mcg IVPUSH DAILY@0600 [facility] Meropenem (Meropenem 1 Gm Vial) 1 gm IV Q8H [facility] Last Admin: 10/03/25 10:58 Dose: 1 gm Midazolam HCl (Midazolam Hcl 2 Mg/2 Ml Vial) 1 mg IVPUSH Q4H PRN PRN Reason: Anxiety Ondansetron HCl (Ondansetron Hcl 4 Mg/2 Ml Vial) 4 mg IVPUSH Q4H PRN PRN Reason: Nausea and Vomiting Last Admin: 10/03/25 07:59 Dose: 4 mg Pharmacy Consult (Consult Rx Vancomycin Dosing) 1 each MISCELLANE DAILY PRN PRN Reason: Consult order Home Medications ?Medication ?Instructions ?Recorded ?Confirmed ?Last Taken ?Type lisinopril 2.5 mg tablet 2.5 mg PO DAILY@1200 09/05/20 10/01/25 10/01/25 History metformin 500 mg tablet,extended 1,000 mg PO BID 09/05/20 10/01/25 10/01/25 History release 24 hr acetaminophen 650 mg 650 mg PO Q8H PRN Pain 04/24/21 10/01/25 Unknown History tablet,extended release albuterol sulfate 90 mcg/actuation 2 puff inhalation QID PRN Wheezing 04/24/21 10/01/25 02/11/25 05:00 History aerosol inhaler atorvastatin 40 mg tablet 40 mg PO BEDTIME 04/24/21 10/01/25 10/01/25 History glipizide 5 mg tablet 10 mg PO BID 04/24/21 10/01/25 10/01/25 History haloperidol 5 mg tablet 2.5 mg PO BID 04/24/21 10/01/25 10/01/25 History bupropion HCl 300 mg 24 hr tablet, 300 mg PO DAILY 06/07/22 10/01/25 10/01/25 History extended release aripiprazole 20 mg tablet 20 mg PO BEDTIME 09/24/22 10/01/25 10/01/25 History aspirin 81 mg tablet,delayed 81 mg PO DAILY 09/24/22 10/01/25 10/01/25 History release bupropion HCl 150 mg 24 hr tablet, 150 mg PO DAILY 09/24/22 10/01/25 10/01/25 History extended release clonazepam 1 mg tablet (Klonopin) 1 mg PO BID PRN Anxiety 04/04/23 10/01/25 10/01/25 History semaglutide 7 mg tablet (Rybelsus) 7 mg PO DAILY 12/15/24 10/01/25 10/01/25 History loratadine 10 mg tablet 10 mg PO DAILY 02/01/25 10/01/25 10/01/25 History montelukast 10 mg tablet 10 mg PO BEDTIME 02/01/25 10/01/25 10/01/25 History pantoprazole 20 mg tablet,delayed 20 mg PO BID 02/01/25 10/01/25 10/01/25 History release ascorbic acid (vitamin C) 250 mg 250 mg PO BID@1200,2100 02/11/25 10/01/25 10/01/25 History tablet ferrous fumarate 324 mg (106 mg 324 mg PO DAILY 02/11/25 10/01/2525 History iron) tablet (Ferrocite) ipratropium 0.5 mg-albuterol 3 mg 3 ml inhalation QID PRN asthma 02/11/25 10/01/25 10/01/25 History (2.5 mg base)/3 mL nebulization soln omega-3 fatty acids 1,000 mg 1,000 mg PO DAILY 02/11/25 10/01/25 10/01/25 History capsule vit no.95-ferrous 1 tab PO DAILY 02/11/25 10/01/25 10/01/25 History fumarate 28 mg-folic acid 800 mcg tablet () tramadol 50 mg tablet 50 mg PO Q8H PRN severe pain 02/11/25 10/01/25 10/01/25 History baclofen 10 mg tablet 10 mg PO TID PRN muscle spasm 10/01/25 10/01/25 10/01/25 History diclofenac sodium 1 % topical gel 2 g topical QID PRN pain 10/01/25 10/01/25 10/01/25 History gabapentin 600 mg tablet 600 mg PO TID 10/01/25 10/01/25 10/01/25 History levothyroxine 200 mcg/mL oral 400 mcg PO DAILY@0200 10/01/25 10/01/25 10/01/25 History solution (Tirosint-Michelle) mometasone 100 mcg/actuation HFA 2 puff inhalation BID 10/01/25 10/01/25 10/01/25 History aerosol inhaler (Asmanex HFA) tiotropium bromide 18 mcg capsule 1 cap inhalation DAILY 10/01/25 10/01/25 10/01/25 History with inhalation device (Spiriva with HandiHaler) Physical Exam Vital Signs: Vital Signs: Last Vital Signs Temp 101.7 F H 10/03/25 15:57 Pulse 117 H 10/03/25 15:57 Resp 19 10/03/25 15:57 BP 109/77 10/03/25 15:57 Pulse Ox 91 L 10/03/25 15:57 O2 Del Method Nasal Cannula 10/03/25 15:57 O2 Flow Rate 2 10/03/25 15:57 BMI result Body Mass Index 33.8 Const: General: cooperative and comfortable GI: Other: abdomen soft tender lower left and right quadrants quiet bowel sounds but present, some distension Results Labs 10/03/25 04:55 10/03/25 04:55 Labs: Abnormal lab results 10/02/25 10/03/25 10/03/25 Range/Units 20:35 04:55 07:10 WBC 27.2 H (4.8-10.8) X10*3/uL RBC 3.57 L (4.20-5.50) X10*6/uL Hgb 9.5 L (12.0-16.0) g/dl Hct 28.7 L (37.0-47.0) % MCH 26.6 L (27.0-33.0) pg Immature Gran % (Auto) 1.5 H (0.0-0.4) % Neut % (Auto) 88.0 H (45-73) % Lymph % (Auto) 4.7 L (20-40) % [place] # (Auto) 1.4 H (0.1-1.2) X10*3/uL Abs Immat Gran (auto) 0.41 H (0.00-0.03) X10*3/uL Absolute Neuts (auto) 23.9 H (2.0-8.3) x10*3/uL POC Glucose 141 H 211 H (60-115) mg/dL Random Glucose 160 H (60-115) mg/dL 10/03/25 Range/Units 10:59 WBC (4.8-10.8) X10*3/uL RBC (4.20-5.50) X10*6/uL Hgb (12.0-16.0) g/dl Hct (37.0-47.0) % MCH (27.0-33.0) pg Immature Gran % (Auto) (0.0-0.4) % Neut % (Auto) (45-73) % Lymph % (Auto) (20-40) % [place] # (Auto) (0.1-1.2) X10*3/uL Abs Immat Gran (auto) (0.00-0.03) X10*3/uL Absolute Neuts (auto) (2.0-8.3) x10*3/uL POC Glucose 231 H (60-115) mg/dL Random Glucose (60-115) mg/dL Short CBC 10/03/25 Range/Units 04:55 WBC 27.2 H (4.8-10.8) X10*3/uL Hgb 9.5 L (12.0-16.0) g/dl Hct 28.7 L (37.0-47.0) % Plt Count 345 (160-400) X10*3/uL BMP 10/03/25 04:55 Sodium 138 Potassium 4.1 Chloride 104 Carbon Dioxide 25 BUN 9 Creatinine 1.25 Calcium 8.4 Urine 10/01/25 10/01/25 Range/Units 13:26 14:29 Urine Color Yellow Yellow Urine Appearance Hazy Cloudy Urine pH 5.5 5.5 (5.0-9.0) Ur Specific [place] 1.015 1.015 (1.005-1.025) Urine Protein Trace Trace (Neg-Trace) mg/dL Urine Glucose (UA) Negative Negative (Negative) mg/dL All other labs normal. Assessment and Plan (1) Ileus: Status: Acute Plan pt with ileus type picture and sepsis - pelvic mass/inflammation noted on ct and murray with mri being done - will trial dulcolax supp but not much stool in rectum by imaging. ng tube placed as was nauseated adn not much coming out -in good location will follow along Procedures Date of Service Date of Service: 10/04/25
--- NOTE | 2025-10-03 18:28 | HE.PHANOTE ---
Vancomycin Vancomycin Trough 11.7. Predicting 391 AUC with 750 mg q12h... Increasing to 1000 mg q12h for predicted AUC of 518. WBC high, patient febrile, creatinine stable. Next trough 10/04/25 @1800.
[2025-10-03 18:30] LABS: Glucose, Whole Blood 117 mg/dL (60-115)
--- NOTE | 2025-10-03 19:12 | PC.NURSE ---
Assumed care for pt at 0700, pt persistently complaining of abdominal discomfort with associated nausea. PT up and down to the commode attempting to move bowels. Pt made NPO, NG tube placed to right nare. CXR to confirm placement. 1630 patient accompanied to MRI. Safety and fall precautions maintained. Call raza within reach.
[2025-10-03] MEDS: Albuterol/Iprat 2.5/0.5MG 3 ML AMPUL.NEB INHALE (23:58)
[2025-10-04] VITALS (33 sets, daily range): BP systolic 91–128; BP diastolic 41–71; PULSE 90–136; RESP 10–24; TEMP 37.4–39.3; O2SAT 89–97; BMI 33.4
[2025-10-04 00:10] LABS: Glucose, Whole Blood 102 mg/dL (60-115)
[2025-10-04 05:24] LABS: Hematocrit 28.2 % (37.0-47.0); Hemoglobin 9.5 g/dl (12.0-16.0); Imm Gran Abs Auto 1.00 X10*3/uL (0.00-0.03); Imm Gran Pct Auto 3.5 % (0.0-0.4); Lymphocytes Absolute Auto 1.8 X10*3/uL (1.2-4.9); MANUAL DIFF FLAG SCAN; Mean Corpuscular HGB Conc 33.7 g/dl (31.0-35.0); Mean Corpuscular Hemoglobin 26.6 pg (27.0-33.0); Mean Corpuscular Volume 79.0 fL (80.0-98.0); NRBC Abs Auto 0.000 X10*3/uL (0.0-0.012); NRBC Pct Auto 0.0 /100WBC (0.0-0.2); Platelet Count 368 X10*3/uL (160-400); Red Blood Count 3.57 X10*6/uL (4.20-5.50); SCAN SMEAR FLAG 1; White Blood Count 28.7 X10*3/uL (4.8-10.8)
[2025-10-04 05:38] LABS: Albumin Level 3.4 g/dL (3.5-5.0); Anion Gap 15 (12-20); Blood Urea Nitrogen 9 mg/dL (9-16); Calcium 8.6 mg/dL (8.4-10.2); Carbon Dioxide 23 mmol/L (22-29); Chloride 105 mmol/L (96-108); Creatinine Clr Calc Pharmacy 65.7; Estimated Glomerular Filt Rate 47; Magnesium 1.7 mg/dL (1.6-2.6); Potassium 3.5 mmol/L (3.3-5.1); Sodium 139 mmol/L (135-145)
[2025-10-04 06:33] LABS: Glucose, Whole Blood 104 mg/dL (60-115)
[2025-10-04] MEDS: Albuterol/Iprat 2.5/0.5MG 3 ML AMPUL.NEB INHALE (07:12)
--- NOTE | 2025-10-04 08:06 | PM.PNGS ---
Subjective Subjective Date of Service: 10/04/25 Interval history: Had initially presented with urinary hesitancy, dysuria, obstipation x 1 week. Admitted for ?UTI, sepsis, found to have adnexal mass. Distended small bowel on imaging and NGT inserted overnight she reported initially feeling better. This morning she does report passing flatus but feels bloated and persistent nausea despite NGT. Continues to have lower abdominal pain. Also reports vaginal discharge over the past few weeks. Has never had colonoscopy. Denies weight loss, malaise prior to presentation. Denies change in stools prior to the past week, hematochezia and melena. Has history of lap marybel and salpingoophorectomy. Physical Exam Vital Signs: Vital Signs: Last Vital Signs Temp 102.7 F H 10/04/25 07:00 Pulse 120 H 10/04/25 07:13 Resp 13 10/04/25 07:13 BP 117/56 L 10/04/25 07:00 Pulse Ox 92 10/04/25 07:00 O2 Del Method Nasal Cannula 10/04/25 07:00 O2 Flow Rate 1.5 10/04/25 07:00 BMI result Body Mass Index 33.4 Const: General: alert, ill appearing and tired appearing Orientation/consciousness: patient oriented x3 Resp: Effort & Inspection: normal respiratory effort and able to speak in complete sentences GI: Other: protuberant abdomen, distended and tympanitic soft lower abd Palpation (GI): Soft to palpation, Tenderness to palpation present (GI) (lower abdomen ), no guarding and not rigid Skin: Other: diaphoretic General skin exam: no jaundice Neuro: General: patient oriented x3 and moves all extremities Objective Data Active Medications Albuterol/Ipratropium (Albuterol/Iprat 2.5/0.5mg 3 Ml Ampul.Neb) 3 ml INHALE RQ4H WHILE AWAKE PRN PRN Reason: Wheezing Last Admin: 10/04/25 07:12 Dose: 3 ml Documented By: LETTY Aripiprazole (Aripiprazole 20 Mg Tablet) 20 mg PO BEDTIME RACHEL On Hold: 10/03/25 09:25 Last Admin: 10/02/25 20:33 Dose: 20 mg Documented By: KUSUM Aspirin (Aspirin 81 Mg Tab.Chew) 81 mg PO DAILY RACHEL On Hold: 10/03/25 09:17 Last Admin: 10/03/25 07:47 Dose: 81 mg Documented By: TASH Atorvastatin Calcium (Atorvastatin Calcium 40 Mg Tablet) 40 mg PO BEDTIME RACHEL On Hold: 10/03/25 09:17 Last Admin: 10/02/25 20:34 Dose: 40 mg Documented By: KUSUM Baclofen (Baclofen 10 Mg Tablet) 10 mg PO TID PRN PRN Reason: Muscle Spasm Bupropion HCl (Bupropion Hcl Xl 300 Mg Tab.Er.24h) 300 mg PO DAILY RACHEL On Hold: 10/03/25 09:40 Last Admin: 10/03/25 07:47 Dose: 300 mg Documented By: TASH Dextrose (Dextrose 50 % 25 Gm/50 Ml Syringe) 25 gm IVPUSH Q15M PRN; Protocol PRN Reason: per Hypoglycemia Standing Ord. Enoxaparin Sodium (Enoxaparin Sodium 40 Mg/0.4 Ml Syringe) 40 mg SUBCUT Q24H RACHEL Last Admin: 10/03/25 14:36 Dose: 40 mg Documented By: TASH Gabapentin (Gabapentin 600 Mg Tablet) 600 mg PO TID RACHEL On Hold: 10/03/25 11:20 Last Admin: 10/03/25 07:47 Dose: 600 mg Documented By: TASH Glucose (Glucose Gel 15 Gm Gel..Gram.) 15 gm PO Q15M PRN; Protocol PRN Reason: per Hypoglycemia Standing Ord. Haloperidol Lactate (Haloperidol Lactate 5 Mg/Ml Vial) 0.5 mg IVPUSH Q6H PRN PRN Reason: Nausea Last Admin: 10/03/25 20:41 Dose: 0.5 mg Documented By: DOMO Norepinephrine Bitartrate (Levophed) 8 mg in 250 mls @ 0 mls/hr IV .Q0M RACHEL; Protocol Acetaminophen (Ofirmev) 1,000 mg in 100 mls @ 400 mls/hr IV Q6H PRN PRN Reason: Fever Last Infusion: 10/04/25 08:05 Dose: Infused Documented By: TASH Vancomycin HCl 1,000 mg/ (Sodium Chloride) 270 mls @ 270 mls/hr IV Q12H RACHEL Last Admin: 10/04/25 08:04 Dose: 270 mls/hr Documented By: TASH Insulin Human Lispro (Insulin Lispro 100 Unit/Ml 3 Ml Vial) 0 unit SUBCUT Q6H RACHEL; Protocol Last Admin: 10/04/25 06:25 Dose: Not Given Documented By: DOMO Non-Admin Reason: No Insulin Coverage Ketorolac Tromethamine (Ketorolac Tromethamine 15 Mg/Ml Vial) 15 mg IVPUSH Q12H PRN PRN Reason: Fever >100.4 Last Admin: 10/03/25 15:17 Dose: 15 mg Documented By: TASH Levothyroxine Sodium (Levothyroxine Sodium 100 Mcg/5 Ml Vial) 100 mcg IVPUSH DAILY@0600 [facility] Last Admin: 10/04/25 06:35 Dose: 100 mcg Documented By: DOMO Meropenem (Meropenem 1 Gm Vial) 1 gm IV Q8H RACHEL Last Admin: 10/04/25 03:23 Dose: 1 gm Documented By: DOMO Midazolam HCl (Midazolam Hcl 2 Mg/2 Ml Vial) 1 mg IVPUSH Q4H PRN PRN Reason: Anxiety Last Admin: 10/03/25 23:37 Dose: 1 mg Documented By: DOMO Morphine Sulfate (Morphine Sulfate 4 Mg/Ml Cartridge) 4 mg IVPUSH Q6H PRN; Protocol PRN Reason: Pain, Severe (Pain Scale 7-10) Last Admin: 10/04/25 07:04 Dose: 4 mg Documented By: DOMO Ondansetron HCl (Ondansetron Hcl 4 Mg/2 Ml Vial) 4 mg IVPUSH Q4H PRN PRN Reason: Nausea and Vomiting Last Admin: 10/03/25 07:59 Dose: 4 mg Documented By: TASH Pharmacy Consult (Consult Rx Vancomycin Dosing) 1 each MISCELLANE DAILY PRN PRN Reason: Consult order Labs 10/04/25 05:17 10/04/25 05:17 Labs: Laboratory Results - last 24 hr 10/03/25 10/03/25 10/03/25 10:59 17:55 18:26 MCV MCH MCHC RDW Plt Count MPV Immature Gran % (Auto) Neut % (Auto) Lymph % (Auto) [place] % (Auto) Eos % (Auto) Baso % (Auto) Lymph # (Auto) [place] # (Auto) Eos # (Auto) Baso # (Auto) Abs Immat Gran (auto) Absolute Neuts (auto) Absolute Nucleated RBC Nucleated RBC % (auto) Smear Tech's Comments Anion Gap Estim Creat Clear Calc Estimated GFR POC Glucose 231 H 117 H Random Glucose Lactic Acid Calcium Phosphorus Magnesium Albumin Random Vancomycin 11.7 L 10/04/25 10/04/25 10/04/25 00:07 05:17 06:23 MCV 79.0 L MCH 26.6 L MCHC 33.7 RDW 14.8 Plt Count 368 MPV 9.3 L Immature Gran % (Auto) 3.5 H Neut % (Auto) 84.7 H Lymph % (Auto) 6.1 L [place] % (Auto) 4.8 Eos % (Auto) 0.6 Baso % (Auto) 0.3 Lymph # (Auto) 1.8 [place] # (Auto) 1.4 H Eos # (Auto) 0.2 Baso # (Auto) 0.1 Abs Immat Gran (auto) 1.00 H Absolute Neuts (auto) 24.3 H Absolute Nucleated RBC 0.000 Nucleated RBC % (auto) 0.0 Smear Tech's Comments VERIFIED Anion Gap 15 Estim Creat Clear Calc 65.7 Estimated GFR 47 POC Glucose 102 104 Random Glucose 122 H Lactic Acid 0.7 Calcium 8.6 Phosphorus 3.0 Magnesium 1.7 Albumin 3.4 L Random Vancomycin Microbiology Microbiology Results: Microbiology 10/01/25 10:48 Blood Culture - Preliminary Blood - Venous No growth after 48 hours. 10/01/25 10:46 Blood Culture - Preliminary Blood - Venous No growth after 48 hours. Procedures Date of Service Date of Service: 10/04/25 Progress Note: A&P Assessment and plan (1) Sepsis: Status: Acute Plan On IV meropenem. Remains febrile, significant leukocytosis. Imaging concerning for tuboovarian/pelvic abscess. Recommend drafter automotive design consult for input, IR consult as well for possible drainage. Can continue NGT for now as she remains distended and tympanitic. She does have air distally in rectum. Time Spent With Patient Time: Total time managing care of this patient today ____ minutes. Quality Stroke Does the patient have a stroke diagnosis?: No VTE Prior VTE?: No VTE Risk Level:: Medical - moderate - high VTE Device Contraindication: N/A - Device Ordered VTE Drug Contraindication: N/A - Med Ordered
--- NOTE | 2025-10-04 09:18 | PM.GYNCN ---
STONE CARVER - CN: HPI Data of Consult Consult date: 10/04/25 Requesting Physician: Emy Ro MD Primary Care Provider: Linda Murphy DO Consult Narrative Narrative: I was consulted on Tisha Ruiz who is a 55 year old female admitted in ICU with septic shock, bilateral hydronephrosis L>R, ileus, pelvic abscess, left adnexal mass possible TOA, underlying malignancy can not be excluded, thickening of the rectum rectal malignancy to be excluded. ID was consulted on 10/02 and the patient is on meropenem 1 g IV Q 8 The patient remains in septic shock with significant leukocytosis, tachycardia 10/03 MRI of the pelvis showed the following: IMPRESSION: 1. Euwj-rkpkqzk-eako-right adnexal lesions as described above, most suggestive of tubo-ovarian abscesses. Continued follow up is recommended to exclude underlying neoplasm. 2. Probable abscess within the pouch of Fabens, Associated with secondary thickening of the rectum. Follow-up endoscopy is recommended to exclude underlying rectal neoplasm. 3. Cvteq-tdzyxya-kcwy-left hydronephrosis secondary to distal ureteral compression cc:: CC: Emy Ro MD [facility] Past Medical History Medical History Primary malignant neoplasm of left lower lobe of lung History of thyroid cancer Hx of radiation therapy Postoperative hypothyroidism Sciatica of right side Back pain Arthritis Anemia Anxiety On home oxygen therapy Incomplete right bundle branch block (RBBB) Uterine fibroid DANIEL (obstructive sleep apnea) Cervical cancer Schizoaffective disorder Pancreatitis Type 2 diabetes mellitus JESICA positive Vitamin D deficiency Morbid obesity Sacroiliitis Multinodular goiter HLD (hyperlipidemia) COPD (chronic obstructive pulmonary disease) GERD (gastroesophageal reflux disease) Bipolar 1 disorder Hypercalcemia Goiter Family History Family History Father Bipolar 1 disorder Mother Diabetes mellitus Hypertension Hyperlipidemia COPD (chronic obstructive pulmonary disease) Paternal Aunt Breast cancer Sister Cervical cancer Family history: reviewed and not pertinent Surgical History Surgical History History of lobectomy of lung History of tubal ligation History of cholecystectomy History of total thyroidectomy Social History Social History Household Members: Spouse and Children Household Members Other:: duplex Housing: Apartment Are you a primary summer child caregiver to a significant other at home: No Do you presently have visiting nurse or other home services: No Alcohol intake: never Comment: Pt refusing bed alarm, agrees to ring call raza for assist. with ambulation Patient Tobacco Use Status: Former Tobacco user Tobacco use type: Cigarette Smoked in Last 30 Days: No Second Hand Smoke Exposure: No Substance Use Type: Marijuana Currently Displaying Signs/Symptoms of Drug Intoxication Withdrawal: No Have you been hit, kicked, punched, or otherwise hurt by someone within the past year? 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: Yes (Stress) Meds Allergies Allergy/AdvReac Type Severity Reaction Status Date / Time oxycodone (Percocet) Allergy Intermediate stomach Verified 10/01/25 10:32 pain SEASONAL ALLERGIES Allergy Unknown UNKNOWN Uncoded 09/16/25 09:13 Active Medications: Current Medications Albuterol/Ipratropium (Albuterol/Iprat 2.5/0.5mg 3 Ml Ampul.Neb) 3 ml INHALE RQ4H WHILE AWAKE PRN PRN Reason: Wheezing Last Admin: 10/04/25 07:12 Dose: 3 ml Aripiprazole (Aripiprazole 20 Mg Tablet) 20 mg PO BEDTIME RACHEL On Hold: 10/03/25 09:25 Last Admin: 10/02/25 20:33 Dose: 20 mg Aspirin (Aspirin 81 Mg Tab.Chew) 81 mg PO DAILY RACHEL On Hold: 10/03/25 09:17 Last Admin: 10/03/25 07:47 Dose: 81 mg Atorvastatin Calcium (Atorvastatin Calcium 40 Mg Tablet) 40 mg PO BEDTIME RACHEL On Hold: 10/03/25 09:17 Last Admin: 10/02/25 20:34 Dose: 40 mg Baclofen (Baclofen 10 Mg Tablet) 10 mg PO TID PRN PRN Reason: Muscle Spasm Bupropion HCl (Bupropion Hcl Xl 300 Mg Tab.Er.24h) 300 mg PO DAILY [facility] On Hold: 10/03/25 09:40 Last Admin: 10/03/25 07:47 Dose: 300 mg Dextrose (Dextrose 50 % 25 Gm/50 Ml Syringe) 25 gm IVPUSH Q15M PRN; Protocol PRN Reason: per Hypoglycemia Standing Ord. Enoxaparin Sodium (Enoxaparin Sodium 40 Mg/0.4 Ml Syringe) 40 mg SUBCUT Q24H [facility] Last Admin: 10/03/25 14:36 Dose: 40 mg Gabapentin (Gabapentin 600 Mg Tablet) 600 mg PO TID RACHEL On Hold: 10/03/25 11:20 Last Admin: 10/03/25 07:47 Dose: 600 mg Glucose (Glucose Gel 15 Gm Gel..Gram.) 15 gm PO Q15M PRN; Protocol PRN Reason: per Hypoglycemia Standing Ord. Haloperidol Lactate (Haloperidol Lactate 5 Mg/Ml Vial) 0.5 mg IVPUSH Q6H PRN PRN Reason: Nausea Last Admin: 10/03/25 20:41 Dose: 0.5 mg Norepinephrine Bitartrate (Levophed) 8 mg in 250 mls @ 0 mls/hr IV .Q0M RACHEL; Protocol Acetaminophen (Ofirmev) 1,000 mg in 100 mls @ 400 mls/hr IV Q6H PRN PRN Reason: Fever Last Infusion: 10/04/25 08:05 Dose: Infused Vancomycin HCl 1,000 mg/ (Sodium Chloride) 270 mls @ 270 mls/hr IV Q12H [facility] Last Admin: 10/04/25 08:04 Dose: 270 mls/hr Insulin Human Lispro (Insulin Lispro 100 Unit/Ml 3 Ml Vial) 0 unit SUBCUT Q6H [facility]; Protocol Last Admin: 10/04/25 06:25 Dose: Not Given Ketorolac Tromethamine (Ketorolac Tromethamine 15 Mg/Ml Vial) 15 mg IVPUSH Q12H PRN PRN Reason: Fever >100.4 Last Admin: 10/03/25 15:17 Dose: 15 mg Levothyroxine Sodium (Levothyroxine Sodium 100 Mcg/5 Ml Vial) 100 mcg IVPUSH DAILY@0600 [facility] Last Admin: 10/04/25 06:35 Dose: 100 mcg Meropenem (Meropenem 1 Gm Vial) 1 gm IV Q8H [facility] Last Admin: 10/04/25 03:23 Dose: 1 gm Midazolam HCl (Midazolam Hcl 2 Mg/2 Ml Vial) 1 mg IVPUSH Q4H PRN PRN Reason: Anxiety Last Admin: 10/03/25 23:37 Dose: 1 mg Morphine Sulfate (Morphine Sulfate 4 Mg/Ml Cartridge) 4 mg IVPUSH Q6H PRN; Protocol PRN Reason: Pain, Severe (Pain Scale 7-10) Last Admin: 10/04/25 07:04 Dose: 4 mg Ondansetron HCl (Ondansetron Hcl 4 Mg/2 Ml Vial) 4 mg IVPUSH Q4H PRN PRN Reason: Nausea and Vomiting Last Admin: 10/03/25 07:59 Dose: 4 mg Pharmacy Consult (Consult Rx Vancomycin Dosing) 1 each MISCELLANE DAILY PRN PRN Reason: Consult order Home Medications ?Medication ?Instructions ?Recorded ?Confirmed ?Last Taken ?Type lisinopril 2.5 mg tablet 2.5 mg PO DAILY@1200 09/05/20 10/01/25 10/01/25 History metformin 500 mg tablet,extended 1,000 mg PO BID 09/05/20 10/01/25 10/01/25 History release 24 hr acetaminophen 650 mg 650 mg PO Q8H PRN Pain 04/24/21 10/01/25 Unknown History tablet,extended release albuterol sulfate 90 mcg/actuation 2 puff inhalation QID PRN Wheezing 04/24/21 10/01/25 02/11/25 05:00 History aerosol inhaler atorvastatin 40 mg tablet 40 mg PO BEDTIME 04/24/21 10/01/25 10/01/25 History glipizide 5 mg tablet 10 mg PO BID 04/24/21 10/01/25 10/01/25 History haloperidol 5 mg tablet 2.5 mg PO BID 04/24/21 10/01/25 10/01/25 History bupropion HCl 300 mg 24 hr tablet, 300 mg PO DAILY 06/07/22 10/01/25 10/01/25 History extended release aripiprazole 20 mg tablet 20 mg PO BEDTIME 09/24/22 10/01/25 10/01/25 History aspirin 81 mg tablet,delayed 81 mg PO DAILY 09/24/22 10/01/25 10/01/25 History release bupropion HCl 150 mg 24 hr tablet, 150 mg PO DAILY 09/24/22 10/01/25 10/01/25 History extended release clonazepam 1 mg tablet (Klonopin) 1 mg PO BID PRN Anxiety 04/04/23 10/01/25 10/01/25 History semaglutide 7 mg tablet (Rybelsus) 7 mg PO DAILY 12/15/24 10/01/25 10/01/25 History loratadine 10 mg tablet 10 mg PO DAILY 02/01/25 10/01/25 10/01/25 History montelukast 10 mg tablet 10 mg PO BEDTIME 02/01/25 10/01/25 10/01/25 History pantoprazole 20 mg tablet,delayed 20 mg PO BID 02/01/25 10/01/25 10/01/25 History release ascorbic acid (vitamin C) 250 mg 250 mg PO BID@1200,2100 02/11/25 10/01/25 10/01/25 History tablet ferrous fumarate 324 mg (106 mg 324 mg PO DAILY 02/11/25 10/01/25 10/01/25 History iron) tablet (Ferrocite) ipratropium 0.5 mg-albuterol 3 mg 3 ml inhalation QID PRN asthma 02/11/25 10/01/25 10/01/25 History (2.5 mg base)/3 mL nebulization soln omega-3 fatty acids 1,000 mg 1,000 mg PO DAILY 02/11/25 10/01/25 10/01/25 History capsule vit no.95-ferrous 1 tab PO DAILY 02/11/25 10/01/25 10/01/25 History fumarate 28 mg-folic acid 800 mcg tablet () tramadol 50 mg tablet 50 mg PO Q8H PRN severe pain 02/11/25 10/01/25 10/01/25 History baclofen 10 mg tablet 10 mg PO TID PRN muscle spasm 10/01/25 10/01/25 10/01/25 History diclofenac sodium 1 % topical gel 2 g topical QID PRN pain 10/01/25 10/01/25 10/01/25 History gabapentin 600 mg tablet 600 mg PO TID 10/01/25 10/01/25 10/01/25 History levothyroxine 200 mcg/mL oral 400 mcg PO DAILY@0200 10/01/25 10/01/25 10/01/25 History solution (Tirosint-Michelle) mometasone 100 mcg/actuation HFA 2 puff inhalation BID 10/01/25 10/01/25 10/01/25 History aerosol inhaler (Asmanex HFA) tiotropium bromide 18 mcg capsule 1 cap inhalation DAILY 10/01/25 10/01/25 10/01/25 History with inhalation device (Spiriva with HandiHaler) STONE CARVER Physical Exam Vitals Vital signs: Temp Pulse Resp BP Pulse Ox O2 Del Method O2 Flow Rate 102.2 F H 133 H 16 119/53 L 92 Nasal Cannula 1.5 10/04/25 08:00 10/04/25 08:00 10/04/25 08:00 10/04/25 08:00 10/04/25 08:00 10/04/25 08:00 10/04/25 08:00 BMI result Body Mass Index 33.4 Abdomen Auscultation/Inspection/Palpation: Distended Female Genitalia (Pelvic) Vulva: No lesions Vagina: Nontender Cervix: Grossly normal and Cervical motion tenderness Uterus: Normal size Adnexa/Parametria: Adnexal Tenderness: Bilateral STONE CARVER - Results Labs 10/05/25 05:16 10/05/25 05:16 Labs: Short CBC 10/04/25 Range/Units 05:17 WBC 28.7 H (4.8-10.8) X10*3/uL Hgb 9.5 L (12.0-16.0) g/dl Hct 28.2 L (37.0-47.0) % Plt Count 368 (160-400) X10*3/uL BMP 10/04/25 05:17 Sodium 139 Potassium 3.5 Chloride 105 Carbon Dioxide 23 BUN 9 Creatinine 1.19 Calcium 8.6 Liver Function 10/04/25 Range/Units 05:17 Albumin 3.4 L (3.5-5.0) g/dL Urine 10/01/25 10/01/25 Range/Units 13:26 14:29 Urine Color Yellow Yellow Urine Appearance Hazy Cloudy Urine pH 5.5 5.5 (5.0-9.0) Ur Specific [place] 1.015 1.015 (1.005-1.025) Urine Protein Trace Trace (Neg-Trace) mg/dL Urine Glucose (UA) Negative Negative (Negative) mg/dL Assessment and Plan (1) Pelvic abscess in female: Status: Acute GC/CT with BV panel collected. Discussed with the patient the findings pelvic abscess with possible underlying left adnexal mass, rule out malignancy. Recommend: - follow up with ID in order to adjust antibiotics given the new MRI findings -consult IR for pelvic abscess drainage luz -if IR is unsuccessful, and/or if the patient does not improve clinically within short period of time , next step in the management will be laparotomy and given the possible left adnexal underlying malignancy, I would recommend in this case to transfer the patient to [facility] where [facility] [employer] [facility] On[facility] service is available. -thick rectum by MRI, consider consulting GI for possible colonoscopy rule out rectal malignancy -bilateral hydronephrosis, consult urology Discussed the case with with Dr. Rutledge, cutting pressman (2) Bacterial vaginosis: Status: Acute BV positive, recommended metronidazole 500 mg q.12 for 7 days
[2025-10-04 10:22] LABS: INTERNATIONAL NORM RATIO 1.3 (0.9-1.1); Prothrombin Time 16.0 SEC (11.2-13.5)
[2025-10-04 10:31] LABS: Alanine Aminotransferase 97 U/L (0-31); Albumin Level 3.8 g/dL (3.5-5.0); Alkaline Phosphatase 619 U/L (39-117); Aspartate Amino Transferase 119 U/L (5-31); Total Protein 7.6 g/dL (6.5-8.0)
[2025-10-04 11:39] LABS: Bacterial Vaginosis PCR POSITIVE (Negative); Candida Group PCR NOT DETECTED (Not Detect); Candida glab krusei PCR NOT DETECTED (Not Detect); Trichomonas vaginalis PCR NOT DETECTED (Not Detect)
--- NOTE | 2025-10-04 11:48 | ECG_ITS ---
Test Reason : qtc check Blood Pressure : */* mmHG Vent. Rate : 104 BPM Atrial Rate : 104 BPM P-R Int : 156 ms QRS Dur : 96 ms QT Int : 350 ms P-R-T Axes : 60 -17 51 degrees QTcB Int : 460 ms Sinus tachycardia Low voltage QRS Cannot rule out Anterior infarct (cited on or before 16-Sep-2025) Abnormal ECG When compared with ECG of 03-Oct-2025 18:33, No significant change was found Referred By: Emy Ro Electronically Signed By: Ion Ahumada
[2025-10-04 12:33] LABS: Glucose, Whole Blood 114 mg/dL (60-115)
[2025-10-04 13:13] LABS: CT PCR NOT DETECTED (Not Detect.); NG PCR NOT DETECTED (Not Detect.)
--- NOTE | 2025-10-04 13:49 | P.PNCC_ITS ---
Subjective Subjective Date of Service: 10/04/25 Interval History: 55-year-old lady with underlying obesity, diabetes mellitus, DANIEL, thyroid and lung cancers status post resections, recurrent abnormal uterine bleeding admitted on 09/30/2025 with sepsis prodrome, further complicated by ileus requiring nasogastric tube decompression, now with abdominal imaging suggestive for pelvic abscess, planned for IR drainage. No events overnight. Critical Care Time (minutes): 0 Physical Exam 2 Vital Signs: Vital Signs: Last Vital Signs Temp 102.6 F H 10/04/25 12:00 Pulse 114 H 10/04/25 13:45 Resp 722 H 10/04/25 13:45 BP 92/58 L 10/04/25 13:45 Pulse Ox 97 10/04/25 13:45 O2 Del Method Nasal Cannula 10/04/25 13:45 O2 Flow Rate 3 10/04/25 13:45 BMI result Body Mass Index 33.4 Const: General: no acute distress, alert and awake Nutritional Appearance: obese Eyes: Sclerae: sclerae normal EOM: EOMs intact bilaterally Neck: Neck: Yes no lymphadenopathy, Yes trachea midline and Yes supple Resp: Effort & Inspection: normal respiratory effort and no respiratory distress Auscultation: clear to auscultation bilaterally Cardio: Rate: tachycardic Rhythm: regular rhythm Heart sounds: no gallops, no murmurs and no rubs GI: Palpation (GI): Soft to palpation and Other GI palpation findings present ( Nontender) Auscultation: normal bowel sounds Extrem: General: Yes no pedal edema, No clubbing and No cyanosis Objective Data Labs 10/04/25 05:17 10/04/25 05:17 Labs: Laboratory Results - last 24 hr 10/03/25 10/03/25 10/04/25 17:55 18:26 00:07 WBC RBC Hgb Hct MCV MCH MCHC RDW Plt Count MPV Immature Gran % (Auto) Neut % (Auto) Lymph % (Auto) Harris % (Auto) Eos % (Auto) Baso % (Auto) Lymph # (Auto) Harris # (Auto) Eos # (Auto) Baso # (Auto) Abs Immat Gran (auto) Absolute Neuts (auto) Absolute Nucleated RBC Nucleated RBC % (auto) Smear Tech's Comments PT INR Sodium Potassium Chloride Carbon Dioxide Anion Gap BUN Creatinine Estim Creat Clear Calc Estimated GFR POC Glucose 117 H 102 Random Glucose Lactic Acid Calcium Phosphorus Magnesium Total Bilirubin Direct Bilirubin AST ALT Alkaline Phosphatase Total Protein Albumin Random Vancomycin 11.7 L Chlam trachomat DNA PCR N.gonorrhoeae DNA (PCR) T. vaginalis (PCR) Bact vaginosis (PCR) C. krusei/glabrata (PCR) Cata group (PCR) 10/04/25 10/04/25 10/04/25 05:17 06:23 09:42 WBC 28.7 H RBC 3.57 L Hgb 9.5 L Hct 28.2 L MCV 79.0 L MCH 26.6 L MCHC 33.7 RDW 14.8 Plt Count 368 MPV 9.3 L Immature Gran % (Auto) 3.5 H Neut % (Auto) 84.7 H Lymph % (Auto) 6.1 L Harris % (Auto) 4.8 Eos % (Auto) 0.6 Baso % (Auto) 0.3 Lymph # (Auto) 1.8 Harris # (Auto) 1.4 H Eos # (Auto) 0.2 Baso # (Auto) 0.1 Abs Immat Gran (auto) 1.00 H Absolute Neuts (auto) 24.3 H Absolute Nucleated RBC 0.000 Nucleated RBC % (auto) 0.0 Smear Tech's Comments VERIFIED PT INR Sodium 139 Potassium 3.5 Chloride 105 Carbon Dioxide 23 Anion Gap 15 BUN 9 Creatinine 1.19 Estim Creat Clear Calc 65.7 Estimated GFR 47 POC Glucose 104 Random Glucose 122 H Lactic Acid 0.7 Calcium 8.6 Phosphorus 3.0 Magnesium 1.7 Total Bilirubin Direct Bilirubin AST ALT Alkaline Phosphatase Total Protein Albumin 3.4 L Random Vancomycin Chlam trachomat DNA PCR NOT DETECTED N.gonorrhoeae DNA (PCR) NOT DETECTED T. vaginalis (PCR) NOT DETECTED Bact vaginosis (PCR) POSITIVE A C. krusei/glabrata (PCR) NOT DETECTED Cata group (PCR) NOT DETECTED 10/04/25 10/04/25 10:07 12:30 WBC RBC Hgb Hct MCV MCH MCHC RDW Plt Count MPV Immature Gran % (Auto) Neut % (Auto) Lymph % (Auto) Harris % (Auto) Eos % (Auto) Baso % (Auto) Lymph # (Auto) Harris # (Auto) Eos # (Auto) Baso # (Auto) Abs Immat Gran (auto) Absolute Neuts (auto) Absolute Nucleated RBC Nucleated RBC % (auto) Smear Tech's Comments PT 16.0 H INR 1.3 H Sodium Potassium Chloride Carbon Dioxide Anion Gap BUN Creatinine Estim Creat Clear Calc Estimated GFR POC Glucose 114 Random Glucose Lactic Acid Calcium Phosphorus Magnesium Total Bilirubin 1.1 H Direct Bilirubin 0.7 H AST 119 H ALT 97 H Alkaline Phosphatase 619 H Total Protein 7.6 Albumin 3.8 Random Vancomycin Chlam trachomat DNA PCR N.gonorrhoeae DNA (PCR) T. vaginalis (PCR) Bact vaginosis (PCR) C. krusei/glabrata (PCR) Cata group (PCR) Microbiology Microbiology Results: Microbiology 10/01/25 10:48 Blood - Venous Blood Culture - Preliminary No growth after 48 hours. 10/01/25 10:46 Blood - Venous Blood Culture - Preliminary No growth after 48 hours. 10/01/25 14:28 Urine clean catch - Clean Catch Midstream Urine Culture - Final Progress Note: A&P Assessment and plan (1) Pelvic abscess in female: Status: Acute (2) Ileus: Status: Acute (3) Type 2 diabetes mellitus: Status: Acute (4) Postoperative hypothyroidism: Status: Acute (5) UTI (urinary tract infection): Status: Acute (6) Bacterial vaginosis: Status: Acute Plan Assessment: 55-year-old lady admitted UTI and ileus, now with pelvic abscess. Plan: Neuro: No acute issues. Cardiac: No acute issues. Pulmonary: No acute issues. Underlying DANIEL. Renal: No acute issues. Endo: No acute issues. Underlying diabetes mellitus and postsurgical hypothyroidism. GI: Ileus, improving with NG tube. ID: Likely pelvic abscess, general surgery and Gynecology Services care appreciated. No plan for drainage. Continue empiric antibiotics. Underlying UTI. Heme/Onc: No acute issues. Psych: No acute issues. Miscellaneous: No acute issues. Prophylaxis: Lovenox Diet: NPO for procedure Critical care time spent: Quality Stroke Does the patient have a stroke diagnosis?: No VTE Prior VTE?: No VTE Risk Level:: Medical - moderate - high VTE Device Contraindication: N/A - Device Ordered VTE Drug Contraindication: N/A - Med Ordered
[2025-10-04] MEDS: metroNIDAZOLE/NS 500 MG/100 ML PIGGYBACK 100 MG IV ×2 (14:45→23:48)
--- NOTE | 2025-10-04 15:04 | P.PNID_ITS ---
Subjective Subjective Date of Service: 10/04/25 Critical Care Time (minutes): 15 Comment: she has mild abdominal discomfort,otherwise worried about abdominal pain source Objective Data Labs 10/04/25 05:17 10/04/25 05:17 Labs: Laboratory Results - last 24 hr 10/03/25 10/03/25 10/04/25 17:55 18:26 00:07 WBC RBC Hgb Hct MCV MCH MCHC RDW Plt Count MPV Immature Gran % (Auto) Neut % (Auto) Lymph % (Auto) [place] % (Auto) Eos % (Auto) Baso % (Auto) Lymph # (Auto) [place] # (Auto) Eos # (Auto) Baso # (Auto) Abs Immat Gran (auto) Absolute Neuts (auto) Absolute Nucleated RBC Nucleated RBC % (auto) Smear Tech's Comments PT INR Sodium Potassium Chloride Carbon Dioxide Anion Gap BUN Creatinine Estim Creat Clear Calc Estimated GFR POC Glucose 117 H 102 Random Glucose Lactic Acid Calcium Phosphorus Magnesium Total Bilirubin Direct Bilirubin AST ALT Alkaline Phosphatase Total Protein Albumin Random Vancomycin 11.7 L Chlam trachomat DNA PCR N.gonorrhoeae DNA (PCR) T. vaginalis (PCR) Bact vaginosis (PCR) C. krusei/glabrata (PCR) Cata group (PCR) 10/04/25 10/04/25 10/04/25 05:17 06:23 09:42 WBC 28.7 H RBC 3.57 L Hgb 9.5 L Hct 28.2 L MCV 79.0 L MCH 26.6 L MCHC 33.7 RDW 14.8 Plt Count 368 MPV 9.3 L Immature Gran % (Auto) 3.5 H Neut % (Auto) 84.7 H Lymph % (Auto) 6.1 L [place] % (Auto) 4.8 Eos % (Auto) 0.6 Baso % (Auto) 0.3 Lymph # (Auto) 1.8 [place] # (Auto) 1.4 H Eos # (Auto) 0.2 Baso # (Auto) 0.1 Abs Immat Gran (auto) 1.00 H Absolute Neuts (auto) 24.3 H Absolute Nucleated RBC 0.000 Nucleated RBC % (auto) 0.0 Smear Tech's Comments VERIFIED PT INR Sodium 139 Potassium 3.5 Chloride 105 Carbon Dioxide 23 Anion Gap 15 BUN 9 Creatinine 1.19 Estim Creat Clear Calc 65.7 Estimated GFR 47 POC Glucose 104 Random Glucose 122 H Lactic Acid 0.7 Calcium 8.6 Phosphorus 3.0 Magnesium 1.7 Total Bilirubin Direct Bilirubin AST ALT Alkaline Phosphatase Total Protein Albumin 3.4 L Random Vancomycin Chlam trachomat DNA PCR NOT DETECTED N.gonorrhoeae DNA (PCR) NOT DETECTED T. vaginalis (PCR) NOT DETECTED Bact vaginosis (PCR) POSITIVE A C. krusei/glabrata (PCR) NOT DETECTED Cata group (PCR) NOT DETECTED 10/04/25 10/04/25 10:07 12:30 WBC RBC Hgb Hct MCV MCH MCHC RDW Plt Count MPV Immature Gran % (Auto) Neut % (Auto) Lymph % (Auto) [place] % (Auto) Eos % (Auto) Baso % (Auto) Lymph # (Auto) [place] # (Auto) Eos # (Auto) Baso # (Auto) Abs Immat Gran (auto) Absolute Neuts (auto) Absolute Nucleated RBC Nucleated RBC % (auto) Smear Tech's Comments PT 16.0 H INR 1.3 H Sodium Potassium Chloride Carbon Dioxide Anion Gap BUN Creatinine Estim Creat Clear Calc Estimated GFR POC Glucose 114 Random Glucose Lactic Acid Calcium Phosphorus Magnesium Total Bilirubin 1.1 H Direct Bilirubin 0.7 H AST 119 H ALT 97 H Alkaline Phosphatase 619 H Total Protein 7.6 Albumin 3.8 Random Vancomycin Chlam trachomat DNA PCR N.gonorrhoeae DNA (PCR) T. vaginalis (PCR) Bact vaginosis (PCR) C. krusei/glabrata (PCR) Cata group (PCR) Microbiology Microbiology Results: Microbiology 10/01/25 10:48 Blood - Venous Blood Culture - Preliminary No growth after 48 hours. 10/01/25 10:46 Blood - Venous Blood Culture - Preliminary No growth after 48 hours. 10/01/25 14:28 Urine clean catch - Clean Catch Midstream Urine Culture - Final Physical Exam 2 Vital Signs: Vital Signs: Last Vital Signs Temp 99.9 F 10/04/25 15:00 Pulse 106 H 10/04/25 15:00 Resp 16 10/04/25 15:00 BP 97/46 L 10/04/25 15:00 Pulse Ox 89 L 10/04/25 15:00 O2 Del Method Room Air 10/04/25 15:00 O2 Flow Rate 3 10/04/25 14:00 BMI result Body Mass Index 33.4 Const: General: cooperative HEENT: Head: Yes normal to inspection Face and sinus: Yes normal facial exam Mouth: Normal oral and palatal mucosa present Teeth and gingiva: d entition normal Eyes: General: appearance normal, both eyes and all related structures P upils: Equal, round and reactive pupils present Resp: Effort & Inspection: normal respiratory effort Cardio: Rate: regular rate Rhythm: regular rhythm GI: Palpation (GI): Soft to palpation and nontender : General: Yes no CVA tenderness Back/Spine/Pelvis: Back: no CVA tenderness Skin: General skin exam: no rashes or lesions noted Neuro: General: moves all extremities Cranial nerves: Yes Equal, round and reactive pupils present Extrem: General: Yes normal to inspection Psych: Appearance: grossly normal Assessment and Plan Assessment and plan (1) Lower abdominal pain: Status: Acute Assessment and Plan: Possible abdominal infection/pelvic abscess or malignancy possible anerobes and gram negatives No signs of staph and it is unlikely biliary pathogen Would continue Merem or piperacillin/tazobactam and metronidazole and would stop Vancomycin if no gram positive in blood culture Await KARYNA campos Time Spent With Patient Time: Total time managing care of this patient today ____ minutes.
--- NOTE | 2025-10-04 16:05 | MHC.CM.PN ---
EMR REVIEWED AND PER ICU ROUNDS, PATIENT IS BEING TREATED FOR UTI, ILEUS, AND A PELVIC ABSCESS, GEN SURG, OBGYN, AND ID CONSULTED, CM WILL CONTINUE TO FOLLOW.
--- NOTE | 2025-10-04 17:23 | PC.NURSE ---
Assumed care at 0700- pt. intubated and sedated per MAR. Sedation vacation initiated at 1052. Pt. tolerating PSV vent settings- see vent assessment. Pt. extubated per MD order at 1155. Pt. A7O to self only, following commands. Pt. initially placed on 4L nunez. pt. with some SOB, RR 20s-30s, wheezy throughout- PRN dilaudid and albuterol given per MAR with some effects. At approx. 1515 pt. with increased WOB, RR 40s-50s, crackles to B/L bases, 88-90% on 8L nunez, HR 110s-120s- MD notified, 40mg Lasix IVP, PRN fentanyl, and albuterol given per MAR with good effect. Pt. placed on HFNC 50L 65%. Currently pt. with slightly increased WOB, RR 20s-low 30s, O2 94% on HFNC, crackles no longer appreciated. Core temp 101.5- MD aware. Afib on tele, HR 100s-110s. Petty in place draining cyu. Family at bedside and updated. Q2 oral care and repositioning performed. Plan of care ongoing.
[2025-10-04 17:45] LABS: Glucose, Whole Blood 124 mg/dL (60-115)
--- NOTE | 2025-10-04 18:50 | HE.PHANOTE ---
Vancomcyin Vancomycin Trough = 14.0. Continue at current dose of 1000 mg q12h. Creatinine stable. Next level on 10/05/25 @1800
--- NOTE | 2025-10-04 19:17 | PC.NURSE ---
Assumed care for pt at 0700, pt titrated back to RA. Pt down to IR for peritoneal drain at 1300. No reports of abdominal pain. NG tube to intermittent suction, 200cc output. Pt resting comfortably. Safety and fall precautions maintained. Call raza within reach
[2025-10-04 21:01] LABS: Anion Gap 16 (12-20); Blood Urea Nitrogen 9 mg/dL (9-16); Calcium 8.5 mg/dL (8.4-10.2); Carbon Dioxide 21 mmol/L (22-29); Chloride 106 mmol/L (96-108); Creatinine Clr Calc Pharmacy 66.9; Estimated Glomerular Filt Rate 49; Magnesium 1.8 mg/dL (1.6-2.6); Potassium 3.7 mmol/L (3.3-5.1); Sodium 139 mmol/L (135-145)
[2025-10-04 23:50] LABS: Glucose, Whole Blood 90 mg/dL (60-115)
[2025-10-05] VITALS (22 sets, daily range): BP systolic 99–134; BP diastolic 51–64; PULSE 78–93; RESP 12–22; TEMP 36.1–37.6; O2SAT 92–98; BMI 34.0
[2025-10-05 00:26] LABS: Glucose, Whole Blood 90 mg/dL (60-115)
[2025-10-05 05:23] LABS: VBG HCO3 29 mmol/L (22-26); VBG O2 % Saturation 94.0 %; Venous Blood Gas Refer to POC result
[2025-10-05 05:26] LABS: Hematocrit 27.2 % (37.0-47.0); Hemoglobin 9.1 g/dl (12.0-16.0); Mean Corpuscular HGB Conc 33.5 g/dl (31.0-35.0); Mean Corpuscular Hemoglobin 26.3 pg (27.0-33.0); Mean Corpuscular Volume 78.6 fL (80.0-98.0); NRBC Abs Auto 0.000 X10*3/uL (0.0-0.012); NRBC Pct Auto 0.0 /100WBC (0.0-0.2); Platelet Count 332 X10*3/uL (160-400); Red Blood Count 3.46 X10*6/uL (4.20-5.50); White Blood Count 24.3 X10*3/uL (4.8-10.8)
--- NOTE | 2025-10-05 05:34 | PC.NURSE ---
Care assumed at 1900. Pt on contact precautions for ESBL in urine. Pt Alert oriented x4. One assist to commode by bedside. Pt continues to have NGT to LIS, no nausea or vomiting noted overnight. Right lower back/buttocks drain dressing CDI draining clear yellow. Indwelling urinary cath in place; UOP as charted. BM moderate liquid brown on commode and at times is incontinent of small amounts of gelatinous clear stool with flatus. Fall/Safety measures in place, pt utilizing call button to address needs. Bed locked in lowest position, alarm on. Pt self repositioning self in bed and pt reports sleeping well during the night. See EMR/flowsheets for further details.
[2025-10-05 05:43] LABS: Alanine Aminotransferase 107 U/L (0-31); Albumin Level 3.2 g/dL (3.5-5.0); Alkaline Phosphatase 310 U/L (39-117); Anion Gap 14 (12-20); Aspartate Amino Transferase 120 U/L (5-31); Blood Urea Nitrogen 10 mg/dL (9-16); Calcium 8.4 mg/dL (8.4-10.2); Carbon Dioxide 25 mmol/L (22-29); Chloride 105 mmol/L (96-108); Creatinine Clr Calc Pharmacy 64.7; Estimated Glomerular Filt Rate 47; Magnesium 1.8 mg/dL (1.6-2.6); Potassium 3.4 mmol/L (3.3-5.1); Sodium 141 mmol/L (135-145); Total Protein 6.5 g/dL (6.5-8.0)
[2025-10-05 06:02] LABS: Band Neutrophils Percent 6 % (3-5); Eosinophils Absolute Manual 0.2 X10*3/uL (0.0-0.4); Eosinophils Percent Manual 1 % (0-4); Lymphocytes Absolute Manual 2.2 X10*3/uL (1.2-4.9); Lymphocytes Percent Manual 9 % (20-40); Monocytes Absolute Manual 1.5 X10*3/uL (0.1-1.2); Monocytes Percent Manual 6 % (2-11); Neutrophils Absolute Manual 20.4 X10*3/uL (2.0-8.3); Neutrophils Percent Manual 78 % (45-73)
[2025-10-05 06:04] LABS: RBC Morphology NOTED; Target Cells 1+ (5-14) /OIF; Tear Drop Cells 1+ (0-2) /OIF; Toxic Vacuolation PRESENT
[2025-10-05] MEDS: Albumin Human 25 % 100 ML IV ×2 (08:05→13:39)
[2025-10-05] MEDS: Potassium Chloride/H20 10 MEQ/100 ML PIGGYBACK 100 MEQ IV ×4 (08:07→14:00)
--- NOTE | 2025-10-05 08:11 | PM.PNGS ---
Subjective Subjective Date of Service: 10/05/25 <Rose Michelle PA-C - Last Filed: 10/05/25 08:19> 10/05/25 <Abebe Amaro MD - Last Filed: 10/05/25 08:34> Interval history: Underwent IR drainage yesterday- 110-120 mL of cloudy slightly purulent appearing yellow fluid drained. Feels significantly improved this morning. Would like NGT out. Denies nausea. Feels slightly bloated, denies abd pain. Had bowel movements yesterday. <Rose Michelle PA-C - Last Filed: 10/05/25 08:19> Physical Exam Vital Signs: Vital Signs: Last Vital Signs Temp 98.4 F 10/05/25 08:00 Pulse 78 10/05/25 08:00 Resp 18 10/05/25 08:00 BP 99/54 L 10/05/25 08:00 Pulse Ox 97 10/05/25 08:00 O2 Del Method Nasal Cannula 10/05/25 08:00 O2 Flow Rate 2 10/05/25 08:00 BMI result Body Mass Index 34.0 <Rose Michelle PA-C - Last Filed: 10/05/25 08:19> Const: General: comfortable, alert and tired appearing <RAJEEV Gallegos Last Filed: 10/05/25 08:19> Orientation/consciousness: patient oriented x3 <Rose Michelle PA-C - Last Filed: 10/05/25 08:19> Resp: Effort & Inspection: normal respiratory effort and able to speak in complete sentences <Rose Michelle PA-C - Last Filed: 10/05/25 08:19> GI: Other: abdomen remains distended, maybe slightly improved nontender soft pigtail drain site clean, drain intact at right buttock- drain serous appearing this morning with sediment <RAJEEV Gallegos Last Filed: 10/05/25 08:19> Palpation (GI): no guarding <RAJEEV Gallegos Last Filed: 10/05/25 08:19> Skin: General skin exam: no rashes or lesions noted <RAJEEV Gallegos Last Filed: 10/05/25 08:19> Neuro: General: patient oriented x3 and moves all extremities <Rose Michelle PA-C - Last Filed: 10/05/25 08:19> Objective Data Active Medications Albuterol/Ipratropium (Albuterol/Iprat 2.5/0.5mg 3 Ml Ampul.Neb) 3 ml INHALE RQ4H WHILE AWAKE PRN PRN Reason: Wheezing Last Admin: 10/04/25 07:12 Dose: 3 ml Documented By: LETTY Aripiprazole (Aripiprazole 20 Mg Tablet) 20 mg PO BEDTIME RACHEL On Hold: 10/03/25 09:25 Last Admin: 10/02/25 20:33 Dose: 20 mg Documented By: KUSUM Aspirin (Aspirin 81 Mg Tab.Chew) 81 mg PO DAILY RACHEL On Hold: 10/03/25 09:17 Last Admin: 10/03/25 07:47 Dose: 81 mg Documented By: TASH Atorvastatin Calcium (Atorvastatin Calcium 40 Mg Tablet) 40 mg PO BEDTIME RACHEL On Hold: 10/03/25 09:17 Last Admin: 10/02/25 20:34 Dose: 40 mg Documented By: KUSUM Baclofen (Baclofen 10 Mg Tablet) 10 mg PO TID PRN PRN Reason: Muscle Spasm Bupropion HCl (Bupropion Hcl Xl 300 Mg Tab.Er.24h) 300 mg PO DAILY RACHEL On Hold: 10/03/25 09:40 Last Admin: 10/03/25 07:47 Dose: 300 mg Documented By: TASH Dextrose (Dextrose 50 % 25 Gm/50 Ml Syringe) 25 gm IVPUSH Q15M PRN; Protocol PRN Reason: per Hypoglycemia Standing Ord. Enoxaparin Sodium (Enoxaparin Sodium 40 Mg/0.4 Ml Syringe) 40 mg SUBCUT Q24H RACHEL Last Admin: 10/04/25 14:44 Dose: 40 mg Documented By: TASH Gabapentin (Gabapentin 600 Mg Tablet) 600 mg PO TID RACHEL On Hold: 10/03/25 11:20 Last Admin: 10/03/25 07:47 Dose: 600 mg Documented By: TASH Glucose (Glucose Gel 15 Gm Gel..Gram.) 15 gm PO Q15M PRN; Protocol PRN Reason: per Hypoglycemia Standing Ord. Haloperidol Lactate (Haloperidol Lactate 5 Mg/Ml Vial) 0.5 mg IVPUSH Q6H PRN PRN Reason: Nausea Last Admin: 10/03/25 20:41 Dose: 0.5 mg Documented By: DOMO Norepinephrine Bitartrate (Levophed) 8 mg in 250 mls @ 0 mls/hr IV .Q0M [facility]; Protocol Acetaminophen (Ofirmev) 1,000 mg in 100 mls @ 400 mls/hr IV Q6H PRN PRN Reason: Fever Last Infusion: 10/05/25 01:03 Dose: Infused Documented By: SHAYE Vancomycin HCl 1,000 mg/ (Sodium Chloride) 270 mls @ 270 mls/hr IV Q12H [facility] Last Admin: 10/05/25 08:07 Dose: 230 mls/hr Documented By: SANDRA Metronidazole (Flagyl) 500 mg in 100 mls @ 100 mls/hr IV Q12H [facility] Last Infusion: 10/05/25 00:48 Dose: Infused Documented By: SHAYE Potassium Chloride (Potassium Chloride/H20) 10 meq in 100 mls @ 100 mls/hr IV Q1H [facility] Stop: 10/05/25 11:59 Last Infusion: 10/05/25 08:08 Dose: 50 mls/hr Documented By: SANDRA Albumin Human (Kedbumin 25 %) 100 mls @ 100 mls/hr IV Q6H [facility] Stop: 10/05/25 14:59 Last Admin: 10/05/25 08:05 Dose: 100 mls/hr Documented By: SANDRA Insulin Human Lispro (Insulin Lispro 100 Unit/Ml 3 Ml Vial) 0 unit SUBCUT Q6H [facility]; Protocol Last Admin: 10/05/25 06:07 Dose: Not Given Documented By: SHAYE Non-Admin Reason: No Insulin Coverage Ketorolac Tromethamine (Ketorolac Tromethamine 15 Mg/Ml Vial) 15 mg IVPUSH Q12H PRN PRN Reason: Fever >100.4 Last Admin: 10/03/25 15:17 Dose: 15 mg Documented By: TASH Levothyroxine Sodium (Levothyroxine Sodium 100 Mcg/5 Ml Vial) 100 mcg IVPUSH DAILY@0600 [facility] Last Admin: 10/05/25 06:12 Dose: 100 mcg Documented By: SHAYE Meropenem (Meropenem 1 Gm Vial) 1 gm IV Q8H [facility] Last Admin: 10/05/25 04:21 Dose: 1 gm Documented By: SHAYE Midazolam HCl (Midazolam Hcl 2 Mg/2 Ml Vial) 1 mg IVPUSH Q4H PRN PRN Reason: Anxiety Last Admin: 10/03/25 23:37 Dose: 1 mg Documented By: DOMO Morphine Sulfate (Morphine Sulfate 4 Mg/Ml Cartridge) 4 mg IVPUSH Q6H PRN; Protocol PRN Reason: Pain, Severe (Pain Scale 7-10) Last Admin: 10/04/25 20:53 Dose: 4 mg Documented By: SHAYE Ondansetron HCl (Ondansetron Hcl 4 Mg/2 Ml Vial) 4 mg IVPUSH Q4H PRN PRN Reason: Nausea and Vomiting Last Admin: 10/03/25 07:59 Dose: 4 mg Documented By: TASH Pantoprazole Sodium (Pantoprazole Sodium 40 Mg/10 Ml Vial) 40 mg IVPUSH DAILY@0630 [facility] Last Admin: 10/05/25 06:12 Dose: 40 mg Documented By: SHAYE Pharmacy Consult (Consult Rx Vancomycin Dosing) 1 each MISCELLANE DAILY PRN PRN Reason: Consult order <Rose Michelle PA-C - Last Filed: 10/05/25 08:19> Labs CBC & Chem 7: 10/05/25 05:16 10/05/25 05:16 <Rose Michelle PA-C - Last Filed: 10/05/25 08:19> Labs: Laboratory Results - last 24 hr 10/04/25 10/04/25 10/04/25 09:42 10:07 12:30 MCV MCH MCHC RDW Plt Count MPV Immature Gran % (Auto) Neut % (Auto) Lymph % (Auto) [place] % (Auto) Eos % (Auto) Baso % (Auto) Lymph # (Auto) [place] # (Auto) Eos # (Auto) Baso # (Auto) Abs Immat Gran (auto) Absolute Neuts (auto) Absolute Nucleated RBC Nucleated RBC % (auto) Neutrophils % (Manual) Band Neutrophils % Lymphocytes % (Manual) Monocytes % (Manual) Eosinophils % (Manual) Abs Neuts (Manual) Lymphocytes # (Manual) Monocytes # (Manual) Eosinophils # (Manual) Toxic Vacuolation Platelet Estimate Plt Morphology Comment RBC Morphology Target Cells Tear Drop Cells PT 16.0 H INR 1.3 H VBG pH VBG pCO2 VBG pO2 VBG HCO3 VBG O2 Saturation VBG Base Excess Anion Gap Estim Creat Clear Calc Estimated GFR POC Glucose 114 Random Glucose Calcium Phosphorus Magnesium Total Bilirubin 1.1 H Direct Bilirubin 0.7 H AST 119 H ALT 97 H Alkaline Phosphatase 619 H Total Protein 7.6 Albumin 3.8 Vancomycin Trough Chlam trachomat DNA PCR NOT DETECTED N.gonorrhoeae DNA (PCR) NOT DETECTED T. vaginalis (PCR) NOT DETECTED Bact vaginosis (PCR) POSITIVE A C. krusei/glabrata (PCR) NOT DETECTED Cata group (PCR) NOT DETECTED 10/04/25 10/04/25 10/04/25 17:40 18:13 20:34 MCV MCH MCHC RDW Plt Count MPV Immature Gran % (Auto) Neut % (Auto) Lymph % (Auto) [place] % (Auto) Eos % (Auto) Baso % (Auto) Lymph # (Auto) [place] # (Auto) Eos # (Auto) Baso # (Auto) Abs Immat Gran (auto) Absolute Neuts (auto) Absolute Nucleated RBC Nucleated RBC % (auto) Neutrophils % (Manual) Band Neutrophils % Lymphocytes % (Manual) Monocytes % (Manual) Eosinophils % (Manual) Abs Neuts (Manual) Lymphocytes # (Manual) Monocytes # (Manual) Eosinophils # (Manual) Toxic Vacuolation Platelet Estimate Plt Morphology Comment RBC Morphology Target Cells Tear Drop Cells PT INR VBG pH VBG pCO2 VBG pO2 VBG HCO3 VBG O2 Saturation VBG Base Excess Anion Gap 16 Estim Creat Clear Calc 66.9 Estimated GFR 49 POC Glucose 124 H Random Glucose 102 Calcium 8.5 Phosphorus 3.5 Magnesium 1.8 Total Bilirubin Direct Bilirubin AST ALT Alkaline Phosphatase Total Protein Albumin Vancomycin Trough 14.0 Chlam trachomat DNA PCR N.gonorrhoeae DNA (PCR) T. vaginalis (PCR) Bact vaginosis (PCR) C. krusei/glabrata (PCR) Cata group (PCR) 10/04/25 10/05/25 10/05/25 23:47 00:22 05:16 MCV 78.6 L MCH 26.3 L MCHC 33.5 RDW 14.9 Plt Count 332 MPV 9.3 L Immature Gran % (Auto) Cancelled Neut % (Auto) Cancelled Lymph % (Auto) Cancelled [place] % (Auto) Cancelled Eos % (Auto) Cancelled Baso % (Auto) Cancelled Lymph # (Auto) Cancelled [place] # (Auto) Cancelled Eos # (Auto) Cancelled Baso # (Auto) Cancelled Abs Immat Gran (auto) Cancelled Absolute Neuts (auto) Cancelled Absolute Nucleated RBC 0.000 Nucleated RBC % (auto) 0.0 Neutrophils % (Manual) 78 H Band Neutrophils % 6 H Lymphocytes % (Manual) 9 L Monocytes % (Manual) 6 Eosinophils % (Manual) 1 Abs Neuts (Manual) 20.4 H Lymphocytes # (Manual) 2.2 Monocytes # (Manual) 1.5 H Eosinophils # (Manual) 0.2 Toxic Vacuolation PRESENT Platelet Estimate NORMAL Plt Morphology Comment NORMAL RBC Morphology NOTED Target Cells 1+ (5-14) Tear Drop Cells 1+ (0-2) PT INR VBG pH VBG pCO2 VBG pO2 VBG HCO3 VBG O2 Saturation VBG Base Excess Anion Gap 14 Estim Creat Clear Calc 64.7 Estimated GFR 47 POC Glucose 90 90 Random Glucose 99 Calcium 8.4 Phosphorus 3.1 Magnesium 1.8 Total Bilirubin 0.5 Direct Bilirubin AST 120 H ALT 107 H Alkaline Phosphatase 310 H Total Protein 6.5 Albumin 3.2 L Vancomycin Trough Chlam trachomat DNA PCR N.gonorrhoeae DNA (PCR) T. vaginalis (PCR) Bact vaginosis (PCR) C. krusei/glabrata (PCR) Cata group (PCR) 10/05/25 05:19 MCV MCH MCHC RDW Plt Count MPV Immature Gran % (Auto) Neut % (Auto) Lymph % (Auto) [place] % (Auto) Eos % (Auto) Baso % (Auto) Lymph # (Auto) [place] # (Auto) Eos # (Auto) Baso # (Auto) Abs Immat Gran (auto) Absolute Neuts (auto) Absolute Nucleated RBC Nucleated RBC % (auto) Neutrophils % (Manual) Band Neutrophils % Lymphocytes % (Manual) Monocytes % (Manual) Eosinophils % (Manual) Abs Neuts (Manual) Lymphocytes # (Manual) Monocytes # (Manual) Eosinophils # (Manual) Toxic Vacuolation Platelet Estimate Plt Morphology Comment RBC Morphology Target Cells Tear Drop Cells PT INR VBG pH 7.46 H VBG pCO2 41 VBG pO2 77 VBG HCO3 29 H VBG O2 Saturation 94.0 VBG Base Excess 5.8 Anion Gap Estim Creat Clear Calc Estimated GFR POC Glucose Random Glucose Calcium Phosphorus Magnesium Total Bilirubin Direct Bilirubin AST ALT Alkaline Phosphatase Total Protein Albumin Vancomycin Trough Chlam trachomat DNA PCR N.gonorrhoeae DNA (PCR) T. vaginalis (PCR) Bact vaginosis (PCR) C. krusei/glabrata (PCR) Cata group (PCR) <Rose Michelle PA-C - Last Filed: 10/05/25 08:19> Procedures Date of Service Date of Service: 10/05/25 <Rose Michelle PA-C - Last Filed: 10/05/25 08:19> 10/05/25 <Abebe Amaro MD - Last Filed: 10/05/25 08:34> Progress Note: A&P Assessment and plan (1) Ileus: Status: Acute <Rose Michelle PA-C - Last Filed: 10/05/25 08:19> (2) Pelvic abscess in female: Status: Acute <Rose Michelle PA-C - Last Filed: 10/05/25 08:19> Assessment and Plan: Underwent CT guided drainage of pelvic abscess yesterday. WBC improved this morning, more hemodynamically stable. Her abdomen does remain distended this morning but NGT with scant drainage and now having bowel movements. May have segmental ileus from intraabdominal collection. NGT therefore clamped this morning, will reassess in 4 hrs and check residual. Unclamp sooner if develops worsening abd pain, nausea/vomiting, bloating. Drain output more serous appearing with some sediment. Keep drain in place. Cont IV abx. <Rose Michelle PA-C - Last Filed: 10/05/25 08:19> Underwent CT guided drainage of pelvic abscess yesterday. WBC improved this morning, more hemodynamically stable. Her abdomen does remain distended this morning but NGT with scant drainage and now having bowel movements. May have segmental ileus from intraabdominal collection. NGT therefore clamped this morning, will reassess in 4 hrs and check residual. Unclamp sooner if develops worsening abd pain, nausea/vomiting, bloating. Drain output more serous appearing with some sediment. Keep drain in place. Cont IV abx. Agree with the above assessment and plan. Fluid collection successfully drained by IR. Fluid cultures pending. Agree with clamping trial. <Abebe Amaro MD - Last Filed: 10/05/25 08:34> Time Spent With Patient Time: Total time managing care of this patient today ____ minutes. <Rose Michelle PA-C - Last Filed: 10/05/25 08:19> Quality Stroke Does the patient have a stroke diagnosis?: No <Rose Michelle PA-C - Last Filed: 10/05/25 08:19> VTE Prior VTE?: No <Rose Michelle PA-C - Last Filed: 10/05/25 08:19> VTE Risk Level:: Medical - moderate - high <Rose Michelle PA-C - Last Filed: 10/05/25 08:19> VTE Device Contraindication: N/A - Device Ordered <Rose Michelle PA-C - Last Filed: 10/05/25 08:19> VTE Drug Contraindication: N/A - Med Ordered <Rose Michelle PA-C - Last Filed: 10/05/25 08:19>
--- NOTE | 2025-10-05 09:46 | PM.GYNPNOP ---
ASSISTANT BUSINESS MANAGER - Subjective Subjective Date of Service: 10/05/25 Interval history: 55-year-old lady with underlying obesity, diabetes mellitus, DANIEL, thyroid and lung cancers status post resections, recurrent abnormal uterine bleeding admitted on 09/30/2025 with sepsis prodrome, further complicated by ileus requiring nasogastric tube decompression, with abdominal imaging suggestive for pelvic abscess, status post drainage by IR= 300 cc of pus drained. 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 Exam Vitals Vital signs: Temp Pulse Resp BP Pulse Ox O2 Del Method O2 Flow Rate 98.4 F 91 15 107/55 L 96 Nasal Cannula 2 10/05/25 09:00 10/05/25 09:00 10/05/25 09:00 10/05/25 09:00 10/05/25 09:00 10/05/25 09:00 10/05/25 09:00 BMI result Body Mass Index 34.0 Abdomen Auscultation/Inspection/Palpation: Normal bowel sounds and Soft ASSISTANT BUSINESS MANAGER - Prog Note: Results Labs 10/05/25 05:16 10/05/25 05:16 Labs: Laboratory Results - last 24 hr 10/04/25 10/04/25 10/04/25 09:42 10:07 12:30 WBC RBC Hgb Hct MCV MCH MCHC RDW Plt Count MPV Immature Gran % (Auto) Neut % (Auto) Lymph % (Auto) [place] % (Auto) Eos % (Auto) Baso % (Auto) Lymph # (Auto) [place] # (Auto) Eos # (Auto) Baso # (Auto) Abs Immat Gran (auto) Absolute Neuts (auto) Absolute Nucleated RBC Nucleated RBC % (auto) Neutrophils % (Manual) Band Neutrophils % Lymphocytes % (Manual) Monocytes % (Manual) Eosinophils % (Manual) Abs Neuts (Manual) Lymphocytes # (Manual) Monocytes # (Manual) Eosinophils # (Manual) Toxic Vacuolation Platelet Estimate Plt Morphology Comment RBC Morphology Target Cells Tear Drop Cells PT 16.0 H INR 1.3 H VBG pH VBG pCO2 VBG pO2 VBG HCO3 VBG O2 Saturation VBG Base Excess Sodium Potassium Chloride Carbon Dioxide Anion Gap BUN Creatinine Estim Creat Clear Calc Estimated GFR POC Glucose 114 Random Glucose Calcium Phosphorus Magnesium Total Bilirubin 1.1 H Direct Bilirubin 0.7 H AST 119 H ALT 97 H Alkaline Phosphatase 619 H Total Protein 7.6 Albumin 3.8 Vancomycin Trough Chlam trachomat DNA PCR NOT DETECTED N.gonorrhoeae DNA (PCR) NOT DETECTED T. vaginalis (PCR) NOT DETECTED Bact vaginosis (PCR) POSITIVE A C. krusei/glabrata (PCR) NOT DETECTED Cata group (PCR) NOT DETECTED 10/04/25 10/04/25 10/04/25 17:40 18:13 20:34 WBC RBC Hgb Hct MCV MCH MCHC RDW Plt Count MPV Immature Gran % (Auto) Neut % (Auto) Lymph % (Auto) [place] % (Auto) Eos % (Auto) Baso % (Auto) Lymph # (Auto) [place] # (Auto) Eos # (Auto) Baso # (Auto) Abs Immat Gran (auto) Absolute Neuts (auto) Absolute Nucleated RBC Nucleated RBC % (auto) Neutrophils % (Manual) Band Neutrophils % Lymphocytes % (Manual) Monocytes % (Manual) Eosinophils % (Manual) Abs Neuts (Manual) Lymphocytes # (Manual) Monocytes # (Manual) Eosinophils # (Manual) Toxic Vacuolation Platelet Estimate Plt Morphology Comment RBC Morphology Target Cells Tear Drop Cells PT INR VBG pH VBG pCO2 VBG pO2 VBG HCO3 VBG O2 Saturation VBG Base Excess Sodium 139 Potassium 3.7 Chloride 106 Carbon Dioxide 21 L Anion Gap 16 BUN 9 Creatinine 1.16 Estim Creat Clear Calc 66.9 Estimated GFR 49 POC Glucose 124 H Random Glucose 102 Calcium 8.5 Phosphorus 3.5 Magnesium 1.8 Total Bilirubin Direct Bilirubin AST ALT Alkaline Phosphatase Total Protein Albumin Vancomycin Trough 14.0 Chlam trachomat DNA PCR N.gonorrhoeae DNA (PCR) T. vaginalis (PCR) Bact vaginosis (PCR) C. krusei/glabrata (PCR) Cata group (PCR) 10/04/25 10/05/25 10/05/25 23:47 00:22 05:16 WBC 24.3 H RBC 3.46 L Hgb 9.1 L Hct 27.2 L MCV 78.6 L MCH 26.3 L MCHC 33.5 RDW 14.9 Plt Count 332 MPV 9.3 L Immature Gran % (Auto) Cancelled Neut % (Auto) Cancelled Lymph % (Auto) Cancelled [place] % (Auto) Cancelled Eos % (Auto) Cancelled Baso % (Auto) Cancelled Lymph # (Auto) Cancelled [place] # (Auto) Cancelled Eos # (Auto) Cancelled Baso # (Auto) Cancelled Abs Immat Gran (auto) Cancelled Absolute Neuts (auto) Cancelled Absolute Nucleated RBC 0.000 Nucleated RBC % (auto) 0.0 Neutrophils % (Manual) 78 H Band Neutrophils % 6 H Lymphocytes % (Manual) 9 L Monocytes % (Manual) 6 Eosinophils % (Manual) 1 Abs Neuts (Manual) 20.4 H Lymphocytes # (Manual) 2.2 Monocytes # (Manual) 1.5 H Eosinophils # (Manual) 0.2 Toxic Vacuolation PRESENT Platelet Estimate NORMAL Plt Morphology Comment NORMAL RBC Morphology NOTED Target Cells 1+ (5-14) Tear Drop Cells 1+ (0-2) PT INR VBG pH VBG pCO2 VBG pO2 VBG HCO3 VBG O2 Saturation VBG Base Excess Sodium 141 Potassium 3.4 Chloride 105 Carbon Dioxide 25 Anion Gap 14 BUN 10 Creatinine 1.20 Estim Creat Clear Calc 64.7 Estimated GFR 47 POC Glucose 90 90 Random Glucose 99 Calcium 8.4 Phosphorus 3.1 Magnesium 1.8 Total Bilirubin 0.5 Direct Bilirubin AST 120 H ALT 107 H Alkaline Phosphatase 310 H Total Protein 6.5 Albumin 3.2 L Vancomycin Trough Chlam trachomat DNA PCR N.gonorrhoeae DNA (PCR) T. vaginalis (PCR) Bact vaginosis (PCR) C. krusei/glabrata (PCR) Cata group (PCR) 10/05/25 05:19 WBC RBC Hgb Hct MCV MCH MCHC RDW Plt Count MPV Immature Gran % (Auto) Neut % (Auto) Lymph % (Auto) [place] % (Auto) Eos % (Auto) Baso % (Auto) Lymph # (Auto) [place] # (Auto) Eos # (Auto) Baso # (Auto) Abs Immat Gran (auto) Absolute Neuts (auto) Absolute Nucleated RBC Nucleated RBC % (auto) Neutrophils % (Manual) Band Neutrophils % Lymphocytes % (Manual) Monocytes % (Manual) Eosinophils % (Manual) Abs Neuts (Manual) Lymphocytes # (Manual) Monocytes # (Manual) Eosinophils # (Manual) Toxic Vacuolation Platelet Estimate Plt Morphology Comment RBC Morphology Target Cells Tear Drop Cells PT INR VBG pH 7.46 H VBG pCO2 41 VBG pO2 77 VBG HCO3 29 H VBG O2 Saturation 94.0 VBG Base Excess 5.8 Sodium Potassium Chloride Carbon Dioxide Anion Gap BUN Creatinine Estim Creat Clear Calc Estimated GFR POC Glucose Random Glucose Calcium Phosphorus Magnesium Total Bilirubin Direct Bilirubin AST ALT Alkaline Phosphatase Total Protein Albumin Vancomycin Trough Chlam trachomat DNA PCR N.gonorrhoeae DNA (PCR) T. vaginalis (PCR) Bact vaginosis (PCR) C. krusei/glabrata (PCR) Cata group (PCR) ASSISTANT BUSINESS MANAGER - A/P (1) Pelvic abscess in female: Status: Acute Assessment and Plan: Status post IR drainage drain 300 cc on meropenem vancomycin and metronidazole, T-max 100.2 yesterday 20:00 Will repeat imaging to rule out underlying ovarian pathology as an outpatient after discharge (2) Bacterial vaginosis: Status: Acute Assessment and Plan: On metronidazole Assessment/Plan Procedure/Diagnosis: Procedures Operation Date: 10/04/25 13:00 Actual Procedure Side Surgeon p Peritoneal Drainage Naomy Alan MD Time Spent With Patient Time: Total time managing care of this patient today ____ minutes. 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
--- NOTE | 2025-10-05 10:16 | PM.CCPN ---
Subjective Subjective Date of Service: 10/05/25 Interval History: 55-year-old lady with underlying obesity, diabetes mellitus, DANIEL, thyroid and lung cancers status post resections, recurrent abnormal uterine bleeding admitted on 09/30/2025 with sepsis prodrome, further complicated by ileus requiring nasogastric tube decompression, with abdominal imaging suggestive for pelvic abscess now status post IR drainage and with improving ileus. No events overnight. Critical Care Time (minutes): 0 Physical Exam Vital Signs: Vital Signs: Last Vital Signs Temp 98.2 F 10/05/25 10:00 Pulse 91 10/05/25 10:00 Resp 14 10/05/25 10:00 BP 107/55 L 10/05/25 10:00 Pulse Ox 94 10/05/25 10:00 O2 Del Method Nasal Cannula 10/05/25 10:00 O2 Flow Rate 2 10/05/25 10:00 BMI result Body Mass Index 34.0 Const: General: no acute distress, alert and awake Eyes: Sclerae: sclerae normal EOM: EOMs intact bilaterally Neck: Neck: Yes no lymphadenopathy, Yes trachea midline and Yes supple Resp: Effort & Inspection: normal respiratory effort and no respiratory distress Auscultation: clear to auscultation bilaterally Cardio: Rate: regular rate Rhythm: regular rhythm Heart sounds: no gallops, no murmurs and no rubs GI: Palpation (GI): Soft to palpation and Other GI palpation findings present ( Nontender) Auscultation: normal bowel sounds Extrem: General: Yes no pedal edema, No clubbing and No cyanosis Objective Data Labs 10/05/25 05:16 10/05/25 05:16 Labs: Laboratory Results - last 24 hr 10/04/25 10/04/25 10/04/25 09:42 10:07 12:30 WBC RBC Hgb Hct MCV MCH MCHC RDW Plt Count MPV Immature Gran % (Auto) Neut % (Auto) Lymph % (Auto) [place] % (Auto) Eos % (Auto) Baso % (Auto) Lymph # (Auto) [place] # (Auto) Eos # (Auto) Baso # (Auto) Abs Immat Gran (auto) Absolute Neuts (auto) Absolute Nucleated RBC Nucleated RBC % (auto) Neutrophils % (Manual) Band Neutrophils % Lymphocytes % (Manual) Monocytes % (Manual) Eosinophils % (Manual) Abs Neuts (Manual) Lymphocytes # (Manual) Monocytes # (Manual) Eosinophils # (Manual) Toxic Vacuolation Platelet Estimate Plt Morphology Comment RBC Morphology Target Cells Tear Drop Cells PT 16.0 H INR 1.3 H VBG pH VBG pCO2 VBG pO2 VBG HCO3 VBG O2 Saturation VBG Base Excess Sodium Potassium Chloride Carbon Dioxide Anion Gap BUN Creatinine Estim Creat Clear Calc Estimated GFR POC Glucose 114 Random Glucose Calcium Phosphorus Magnesium Total Bilirubin 1.1 H Direct Bilirubin 0.7 H AST 119 H ALT 97 H Alkaline Phosphatase 619 H Total Protein 7.6 Albumin 3.8 Vancomycin Trough Chlam trachomat DNA PCR NOT DETECTED N.gonorrhoeae DNA (PCR) NOT DETECTED T. vaginalis (PCR) NOT DETECTED Bact vaginosis (PCR) POSITIVE A C. krusei/glabrata (PCR) NOT DETECTED Cata group (PCR) NOT DETECTED 10/04/25 10/04/25 10/04/25 17:40 18:13 20:34 WBC RBC Hgb Hct MCV MCH MCHC RDW Plt Count MPV Immature Gran % (Auto) Neut % (Auto) Lymph % (Auto) [place] % (Auto) Eos % (Auto) Baso % (Auto) Lymph # (Auto) [place] # (Auto) Eos # (Auto) Baso # (Auto) Abs Immat Gran (auto) Absolute Neuts (auto) Absolute Nucleated RBC Nucleated RBC % (auto) Neutrophils % (Manual) Band Neutrophils % Lymphocytes % (Manual) Monocytes % (Manual) Eosinophils % (Manual) Abs Neuts (Manual) Lymphocytes # (Manual) Monocytes # (Manual) Eosinophils # (Manual) Toxic Vacuolation Platelet Estimate Plt Morphology Comment RBC Morphology Target Cells Tear Drop Cells PT INR VBG pH VBG pCO2 VBG pO2 VBG HCO3 VBG O2 Saturation VBG Base Excess Sodium 139 Potassium 3.7 Chloride 106 Carbon Dioxide 21 L Anion Gap 16 BUN 9 Creatinine 1.16 Estim Creat Clear Calc 66.9 Estimated GFR 49 POC Glucose 124 H Random Glucose 102 Calcium 8.5 Phosphorus 3.5 Magnesium 1.8 Total Bilirubin Direct Bilirubin AST ALT Alkaline Phosphatase Total Protein Albumin Vancomycin Trough 14.0 Chlam trachomat DNA PCR N.gonorrhoeae DNA (PCR) T. vaginalis (PCR) Bact vaginosis (PCR) C. krusei/glabrata (PCR) Cata group (PCR) 10/04/25 10/05/25 10/05/25 23:47 00:22 05:16 WBC 24.3 H RBC 3.46 L Hgb 9.1 L Hct 27.2 L MCV 78.6 L MCH 26.3 L MCHC 33.5 RDW 14.9 Plt Count 332 MPV 9.3 L Immature Gran % (Auto) Cancelled Neut % (Auto) Cancelled Lymph % (Auto) Cancelled [place] % (Auto) Cancelled Eos % (Auto) Cancelled Baso % (Auto) Cancelled Lymph # (Auto) Cancelled [place] # (Auto) Cancelled Eos # (Auto) Cancelled Baso # (Auto) Cancelled Abs Immat Gran (auto) Cancelled Absolute Neuts (auto) Cancelled Absolute Nucleated RBC 0.000 Nucleated RBC % (auto) 0.0 Neutrophils % (Manual) 78 H Band Neutrophils % 6 H Lymphocytes % (Manual) 9 L Monocytes % (Manual) 6 Eosinophils % (Manual) 1 Abs Neuts (Manual) 20.4 H Lymphocytes # (Manual) 2.2 Monocytes # (Manual) 1.5 H Eosinophils # (Manual) 0.2 Toxic Vacuolation PRESENT Platelet Estimate NORMAL Plt Morphology Comment NORMAL RBC Morphology NOTED Target Cells 1+ (5-14) Tear Drop Cells 1+ (0-2) PT INR VBG pH VBG pCO2 VBG pO2 VBG HCO3 VBG O2 Saturation VBG Base Excess Sodium 141 Potassium 3.4 Chloride 105 Carbon Dioxide 25 Anion Gap 14 BUN 10 Creatinine 1.20 Estim Creat Clear Calc 64.7 Estimated GFR 47 POC Glucose 90 90 Random Glucose 99 Calcium 8.4 Phosphorus 3.1 Magnesium 1.8 Total Bilirubin 0.5 Direct Bilirubin AST 120 H ALT 107 H Alkaline Phosphatase 310 H Total Protein 6.5 Albumin 3.2 L Vancomycin Trough Chlam trachomat DNA PCR N.gonorrhoeae DNA (PCR) T. vaginalis (PCR) Bact vaginosis (PCR) C. krusei/glabrata (PCR) Cata group (PCR) 10/05/25 05:19 WBC RBC Hgb Hct MCV MCH MCHC RDW Plt Count MPV Immature Gran % (Auto) Neut % (Auto) Lymph % (Auto) [place] % (Auto) Eos % (Auto) Baso % (Auto) Lymph # (Auto) [place] # (Auto) Eos # (Auto) Baso # (Auto) Abs Immat Gran (auto) Absolute Neuts (auto) Absolute Nucleated RBC Nucleated RBC % (auto) Neutrophils % (Manual) Band Neutrophils % Lymphocytes % (Manual) Monocytes % (Manual) Eosinophils % (Manual) Abs Neuts (Manual) Lymphocytes # (Manual) Monocytes # (Manual) Eosinophils # (Manual) Toxic Vacuolation Platelet Estimate Plt Morphology Comment RBC Morphology Target Cells Tear Drop Cells PT INR VBG pH 7.46 H VBG pCO2 41 VBG pO2 77 VBG HCO3 29 H VBG O2 Saturation 94.0 VBG Base Excess 5.8 Sodium Potassium Chloride Carbon Dioxide Anion Gap BUN Creatinine Estim Creat Clear Calc Estimated GFR POC Glucose Random Glucose Calcium Phosphorus Magnesium Total Bilirubin Direct Bilirubin AST ALT Alkaline Phosphatase Total Protein Albumin Vancomycin Trough Chlam trachomat DNA PCR N.gonorrhoeae DNA (PCR) T. vaginalis (PCR) Bact vaginosis (PCR) C. krusei/glabrata (PCR) Cata group (PCR) Microbiology Microbiology Results: Microbiology 10/04/25 14:10 Sacrum Gram Stain - Final 10/01/25 10:48 Blood - Venous Blood Culture - Preliminary No growth after 48 hours. 10/01/25 10:46 Blood - Venous Blood Culture - Preliminary No growth after 48 hours. 10/01/25 14:28 Urine clean catch - Clean Catch Midstream Urine Culture - Final Progress Note: A&P Assessment and plan (1) Type 2 diabetes mellitus: Status: Acute (2) Morbid obesity: Status: Acute (3) Ileus: Status: Acute (4) Pelvic abscess in female: Status: Acute (5) DANIEL (obstructive sleep apnea): Status: Acute Plan Assessment: 55-year-old lady admitted UTI and ileus, and pelvic abscess. Plan: Neuro: No acute issues. Cardiac: No acute issues. Pulmonary: No acute issues. Underlying DANIEL. Renal: No acute issues. Endo: No acute issues. Underlying diabetes mellitus and postsurgical hypothyroidism. GI: Ileus, improving. ID: Pelvic abscess, general surgery and gynecology services care appreciated. Now status post IR drainage. Continue empiric antibiotics. Underlying UTI. Heme/Onc: No acute issues. Psych: No acute issues. Miscellaneous: No acute issues. Prophylaxis: Lovenox Diet: NPO Quality Stroke Does the patient have a stroke diagnosis?: No VTE Prior VTE?: No VTE Risk Level:: Medical - moderate - high VTE Device Contraindication: N/A - Device Ordered VTE Drug Contraindication: N/A - Med Ordered
--- NOTE | 2025-10-05 10:20 | MHC.CM.PN ---
Pt with new pelvic drain placed in IR: May be able to transfer to the floor if BP and labs remain stable. Pt will d/c to home w/spouse and family support: Will reassess if pt needs to d/c to home w/ drain for VNA
--- NOTE | 2025-10-05 11:31 | PC.NURSE ---
Addendum entered by Andrea Richards RN 10/05/25 16:10: MD armstrong. Original Note: Potassium infusion burning patient, IV infusion rate reduced.
--- NOTE | 2025-10-05 11:48 | ECG_ITS ---
Test Reason : QTc Monitoring Blood Pressure : */* mmHG Vent. Rate : 84 BPM Atrial Rate : 84 BPM P-R Int : 156 ms QRS Dur : 98 ms QT Int : 404 ms P-R-T Axes : 72 20 60 degrees QTcB Int : 477 ms Normal sinus rhythm Low voltage QRS Cannot rule out Anterior infarct (cited on or before 16-Sep-2025) Abnormal ECG When compared with ECG of 04-Oct-2025 16:17, No significant change was found Referred By: Emy Ro Electronically Signed By: Ion Ahumada
[2025-10-05 12:43] LABS: Glucose, Whole Blood 86 mg/dL (60-115)
[2025-10-05] MEDS: metroNIDAZOLE/NS 500 MG/100 ML PIGGYBACK 100 MG IV (13:38)
--- NOTE | 2025-10-05 18:03 | HE.PHANOTE ---
Re: Vanco Renal is stable. Trough returned at 16.3, pt is therapeutic. Continue current dose of 1000mg q12h with predicted AUC 468, predicted trough 15.1. Next trough 10/06 @ 1800.
[2025-10-05 18:05] LABS: Glucose, Whole Blood 88 mg/dL (60-115)
--- NOTE | 2025-10-05 19:30 | PM.EVENT ---
Event Note Date of Service: 10/05/25 Event Note: Signout received Pt to be transferred to medical floor today pending availability Still in ICU as of this note Cont care as stated Time Spent With Patient Time: Total time managing care of this patient today ____ minutes.
--- NOTE | 2025-10-05 19:50 | PC.NURSE ---
OSCAR REMOVED PER ICU TRANSPLANT REGISTERED NURSE AT 7:30PM PRIOR TO TRANSFER TO MED-TELEMETRY UNIT
--- NOTE | 2025-10-05 20:50 | PC.NURSE ---
report called to paola and transferred t0 [phone] via bed
[2025-10-05 23:33] LABS: Glucose, Whole Blood 79 mg/dL (60-115)
[2025-10-06] MEDS: metroNIDAZOLE/NS 500 MG/100 ML PIGGYBACK 100 MG IV ×2 (02:37→13:04)
[2025-10-06 03:12] VITALS: BP 119/58; PULSE 78; RESP 18; TEMP 36.7; O2SAT 96
[2025-10-06 05:59] LABS: Glucose, Whole Blood 81 mg/dL (60-115)
[2025-10-06 06:00] VITALS: BMI 32.9
[2025-10-06 07:06] LABS: Hematocrit 27.1 % (37.0-47.0); Hemoglobin 9.0 g/dl (12.0-16.0); Mean Corpuscular HGB Conc 33.2 g/dl (31.0-35.0); Mean Corpuscular Hemoglobin 26.2 pg (27.0-33.0); Mean Corpuscular Volume 79.0 fL (80.0-98.0); NRBC Abs Auto 0.000 X10*3/uL (0.0-0.012); NRBC Pct Auto 0.0 /100WBC (0.0-0.2); Platelet Count 396 X10*3/uL (160-400); Red Blood Count 3.43 X10*6/uL (4.20-5.50); White Blood Count 27.0 X10*3/uL (4.8-10.8)
[2025-10-06 07:09] LABS: Albumin Level 3.6 g/dL (3.5-5.0); Anion Gap 15 (12-20); Blood Urea Nitrogen 13 mg/dL (9-16); Calcium 8.8 mg/dL (8.4-10.2); Carbon Dioxide 24 mmol/L (22-29); Chloride 108 mmol/L (96-108); Creatinine Clr Calc Pharmacy 65.8; Estimated Glomerular Filt Rate 48; Magnesium 1.9 mg/dL (1.6-2.6); Potassium 3.5 mmol/L (3.3-5.1); Sodium 143 mmol/L (135-145)
[2025-10-06 07:56] VITALS: BP 112/56; PULSE 70; RESP 18; TEMP 36.5; O2SAT 98
--- NOTE | 2025-10-06 07:57 | P.PNIM_ITS ---
Subjective Subjective Date of Service: 10/06/25 Interval History: Patient able to tolerate liquid diet Continues to have a few bowel formed bowel movements Passing gas Abdomen at her baseline per patient (the 1st time I am seeing the patient) Review of Systems Review of Systems: Yes all other systems are reviewed and are negative Physical Exam 2 Vital Signs: Vital Signs: Last Vital Signs Temp 98.0 F 10/06/25 03:12 Pulse 78 10/06/25 03:12 Resp 18 10/06/25 03:12 BP 119/58 L 10/06/25 03:12 Pulse Ox 96 10/06/25 03:12 O2 Del Method Nasal Cannula 10/06/25 03:12 O2 Flow Rate 2 10/06/25 03:12 BMI result Body Mass Index 32.9 Const: General: comfortable and no acute distress O rientation/consciousness: patient oriented x3 Resp: Effort & Inspection: normal respiratory effort and able to speak in complete sentences GI: Inspection: Yes distended (Mild) Palpation (GI): Soft to palpation, nontender and no guarding Percussion: Yes normal to percussion A uscultation: normal bowel sounds Neuro: General: patient oriented x3 Objective Data Active Medications Albuterol/Ipratropium (Albuterol/Iprat 2.5/0.5mg 3 Ml Ampul.Neb) 3 ml INHALE RQ4H WHILE AWAKE PRN PRN Reason: Wheezing Last Admin: 10/04/25 07:12 Dose: 3 ml Documented By: LETTY Baclofen (Baclofen 10 Mg Tablet) 10 mg PO TID PRN PRN Reason: Muscle Spasm Dextrose (Dextrose 50 % 25 Gm/50 Ml Syringe) 25 gm IVPUSH Q15M PRN; Protocol PRN Reason: per Hypoglycemia Standing Ord. Enoxaparin Sodium (Enoxaparin Sodium 40 Mg/0.4 Ml Syringe) 40 mg SUBCUT Q24H RACHEL Last Admin: 10/05/25 16:25 Dose: 40 mg Documented By: SANDRA Glucose (Glucose Gel 15 Gm Gel..Gram.) 15 gm PO Q15M PRN; Protocol PRN Reason: per Hypoglycemia Standing Ord. Haloperidol Lactate (Haloperidol Lactate 5 Mg/Ml Vial) 0.5 mg IVPUSH Q6H PRN PRN Reason: Nausea Last Admin: 10/03/25 20:41 Dose: 0.5 mg Documented By: DOMO Vancomycin HCl 1,000 mg/ (Sodium Chloride) 270 mls @ 270 mls/hr IV Q12H [facility] Last Infusion: 10/05/25 22:08 Dose: Infused Documented By: ALEX Metronidazole (Flagyl) 500 mg in 100 mls @ 100 mls/hr IV Q12H [facility] Last Infusion: 10/06/25 03:37 Dose: Infused Documented By: NAS Insulin Human Lispro (Insulin Lispro 100 Unit/Ml 3 Ml Vial) 0 unit SUBCUT Q6H [facility]; Protocol Last Admin: 10/06/25 06:01 Dose: Not Given Documented By: ALEX Non-Admin Reason: No Insulin Coverage Ketorolac Tromethamine (Ketorolac Tromethamine 15 Mg/Ml Vial) 15 mg IVPUSH Q12H PRN PRN Reason: Fever >100.4 Last Admin: 10/05/25 22:01 Dose: 15 mg Documented By: ALEX Levothyroxine Sodium (Levothyroxine Sodium 100 Mcg/5 Ml Vial) 100 mcg IVPUSH DAILY@0600 [facility] Last Admin: 10/06/25 05:55 Dose: 100 mcg Documented By: ALEX Meropenem (Meropenem 1 Gm Vial) 1 gm IV Q8H [facility] Last Admin: 10/06/25 04:00 Dose: 1 gm Documented By: ALEX Midazolam HCl (Midazolam Hcl 2 Mg/2 Ml Vial) 1 mg IVPUSH Q4H PRN PRN Reason: Anxiety Last Admin: 10/03/25 23:37 Dose: 1 mg Documented By: DOMO Morphine Sulfate (Morphine Sulfate 4 Mg/Ml Cartridge) 4 mg IVPUSH Q6H PRN; Protocol PRN Reason: Pain, Severe (Pain Scale 7-10) Last Admin: 10/05/25 19:18 Dose: 4 mg Documented By: NATALIE Ondansetron HCl (Ondansetron Hcl 4 Mg/2 Ml Vial) 4 mg IVPUSH Q4H PRN PRN Reason: Nausea and Vomiting Last Admin: 10/03/25 07:59 Dose: 4 mg Documented By: RIOSCEL Pantoprazole Sodium (Pantoprazole Sodium 40 Mg/10 Ml Vial) 40 mg IVPUSH DAILY@0630 [facility] Last Admin: 10/06/25 05:55 Dose: 40 mg Documented By: ALEX Pharmacy Consult (Consult Rx Vancomycin Dosing) 1 each MISCELLANE DAILY PRN PRN Reason: Consult order Labs 10/06/25 06:22 10/06/25 06:22 Labs: Laboratory Results - last 24 hr 10/05/25 10/05/25 10/05/25 12:39 17:27 18:02 MCV MCH MCHC RDW Plt Count MPV Immature Gran % (Auto) Neut % (Auto) Lymph % (Auto) [place] % (Auto) Eos % (Auto) Baso % (Auto) Lymph # (Auto) [place] # (Auto) Eos # (Auto) Baso # (Auto) Abs Immat Gran (auto) Absolute Neuts (auto) Absolute Nucleated RBC Nucleated RBC % (auto) Anion Gap Estim Creat Clear Calc Estimated GFR POC Glucose 86 88 Random Glucose Calcium Phosphorus Magnesium Albumin Vancomycin Trough 16.3 10/05/25 10/06/25 10/06/25 23:29 05:55 06:22 MCV 79.0 L MCH 26.2 L MCHC 33.2 RDW 15.1 Plt Count 396 MPV 9.7 Immature Gran % (Auto) Cancelled Neut % (Auto) Cancelled Lymph % (Auto) Cancelled George % (Auto) Cancelled Eos % (Auto) Cancelled Baso % (Auto) Cancelled Lymph # (Auto) Cancelled George # (Auto) Cancelled Eos # (Auto) Cancelled Baso # (Auto) Cancelled Abs Immat Gran (auto) Cancelled Absolute Neuts (auto) Cancelled Absolute Nucleated RBC 0.000 Nucleated RBC % (auto) 0.0 Anion Gap 15 Estim Creat Clear Calc 65.8 Estimated GFR 48 POC Glucose 79 81 Random Glucose 81 Calcium 8.8 Phosphorus 2.6 L Magnesium 1.9 Albumin 3.6 Vancomycin Trough Microbiology Microbiology Results: Microbiology 10/04/25 14:10 Gram Stain - Final Sacrum Routine Culture - Preliminary No growth to date. Assessment and Plan (1) Pelvic abscess in female: Status: Acute Plan 55-year-old lady with underlying obesity, diabetes mellitus, DANIEL, thyroid and lung cancers status post resections, recurrent abnormal uterine bleeding admitted on 09/30/2025 with sepsis prodrome, further complicated by ileus requiring nasogastric tube decompression, brief ICU stay from 10/01/2025 to 10/05/2025 with abdominal imaging suggestive for pelvic abscess now status post IR drainage and with improving ileus. Patient is on the floors from 10/06/2025. Pelvic abscess in female s/p IR drain Likely from a UTI Currently on meropenem and metronidazole, discontinue vancomycin Leukocytosis up trending unclear etiology , could be from the steroids, however patient hemodynamically stable and afebrile and able to tolerate p.o. diet We will check GI and C diff panel as a possible etiology of up trending leukocytosis Surgery and Ob and ID were consulted while in ICU Patient is tolerating liquid diet we will advance as tolerated Bacterial vaginosis-continue metronidazole CAD-aspirin and statin Pain-continue home p.r.n. meds MARGARITA -continue ferrous sulfate Hypothyroidism-resume p.o. levothyroxine DM type 2-insulin sliding scale while inpatient DANIEL CPAP \ Thyroid and lung cancer status post resection-outpatient oncology management DVT prophylaxis with Lovenox while inpatient Full code Needs continued hospitalization given significant comorbidities requiring ICU stay, need to challenged with diet and continue IV antibiotics This note is constructed using voice recognition software. While every effort has been made to ensure accuracy, community service technician errors may have been included. Quality Stroke Does the patient have a stroke diagnosis?: No VTE Prior VTE?: No VTE Risk Level:: Medical - moderate - high VTE Device Contraindication: N/A - Device Ordered VTE Drug Contraindication: N/A - Med Ordered
[2025-10-06 09:37] LABS: Band Neutrophils Percent 7 % (3-5); Eosinophils Absolute Manual 0.5 X10*3/uL (0.0-0.4); Eosinophils Percent Manual 2 % (0-4); Lymphocytes Absolute Manual 3.0 X10*3/uL (1.2-4.9); Lymphocytes Percent Manual 11 % (20-40); Metamyelocytes Absolute 0.3 X10*3/uL; Metamyelocytes Percent 1 %; Monocytes Absolute Manual 0.5 X10*3/uL (0.1-1.2); Monocytes Percent Manual 2 % (2-11); Myelocytes Absolute 0.5 X10*/uL; Myelocytes Percent 2 %; Neutrophils Absolute Manual 22.1 X10*3/uL (2.0-8.3); Neutrophils Percent Manual 75 % (45-73)
[2025-10-06 09:41] LABS: RBC Morphology NOTED; Target Cells 1+ (5-14) /OIF
[2025-10-06 09:42] LABS: Hypochromasia 1+ (5-14) /OIF; Polychromasia 1+ (0-2) /OIF
--- NOTE | 2025-10-06 11:03 | PM.PNGS ---
Subjective Subjective Date of Service: 10/06/25 <Des Escoto PA-C - Last Filed: 10/06/25 11:09> 10/06/25 <Abebe Amaro MD - Last Filed: 10/06/25 14:09> Interval history: Doing well, now on telemetry, downgraded from ICU. Denies abdominal pain. Denies nausea or vomiting. Is passing gas, also passed a small bowel movement this morning. Tolerating diet so far. <Des Escoto PA-C - Last Filed: 10/06/25 11:09> Physical Exam Vital Signs: Vital Signs: Last Vital Signs Temp 97.7 F 10/06/25 07:56 Pulse 70 10/06/25 07:56 Resp 18 10/06/25 07:56 BP 112/56 L 10/06/25 07:56 Pulse Ox 98 10/06/25 07:56 O2 Del Method Nasal Cannula 10/06/25 07:56 O2 Flow Rate 2 10/06/25 07:56 BMI result Body Mass Index 32.9 <Des Escoto PA-C - Last Filed: 10/06/25 11:09> Const: General: comfortable and no acute distress <Des Escoto PA-C - Last Filed: 10/06/25 11:09> Orientation/consciousness: patient oriented x3 <Des Escoto PA-C - Last Filed: 10/06/25 11:09> Resp: Effort & Inspection: normal respiratory effort and able to speak in complete sentences <Des Escoto PA-C - Last Filed: 10/06/25 11:09> GI: Inspection: Yes distended (Mild) <Des Escoto PA-C - Last Filed: 10/06/25 11:09> Palpation (GI): Soft to palpation, nontender and no guarding <Des Escoto PA-C - Last Filed: 10/06/25 11:09> Percussion: Yes normal to percussion <RAJEEV Grajeda Last Filed: 10/06/25 11:09> Auscultation: normal bowel sounds <Des Escoto PA-C - Last Filed: 10/06/25 11:09> Neuro: General: patient oriented x3 <Des Escoto PA-C - Last Filed: 10/06/25 11:09> Objective Data Active Medications Albuterol/Ipratropium (Albuterol/Iprat 2.5/0.5mg 3 Ml Ampul.Neb) 3 ml INHALE RQ4H WHILE AWAKE PRN PRN Reason: Wheezing Last Admin: 10/04/25 07:12 Dose: 3 ml Documented By: LETTY Baclofen (Baclofen 10 Mg Tablet) 10 mg PO TID PRN PRN Reason: Muscle Spasm Dextrose (Dextrose 50 % 25 Gm/50 Ml Syringe) 25 gm IVPUSH Q15M PRN; Protocol PRN Reason: per Hypoglycemia Standing Ord. Enoxaparin Sodium (Enoxaparin Sodium 40 Mg/0.4 Ml Syringe) 40 mg SUBCUT Q24H RACHEL Last Admin: 10/05/25 16:25 Dose: 40 mg Documented By: SANDRA Glucose (Glucose Gel 15 Gm Gel..Gram.) 15 gm PO Q15M PRN; Protocol PRN Reason: per Hypoglycemia Standing Ord. Haloperidol Lactate (Haloperidol Lactate 5 Mg/Ml Vial) 0.5 mg IVPUSH Q6H PRN PRN Reason: Nausea Last Admin: 10/03/25 20:41 Dose: 0.5 mg Documented By: DOMO Vancomycin HCl 1,000 mg/ (Sodium Chloride) 270 mls @ 270 mls/hr IV Q12H [facility] Last Infusion: 10/06/25 08:58 Dose: Infused Documented By: NILSON Metronidazole (Flagyl) 500 mg in 100 mls @ 100 mls/hr IV Q12H [facility] Last Infusion: 10/06/25 03:37 Dose: Infused Documented By: NAS Insulin Human Lispro (Insulin Lispro 100 Unit/Ml 3 Ml Vial) 0 unit SUBCUT Q6H RCAHEL; Protocol Last Admin: 10/06/25 06:01 Dose: Not Given Documented By: ALEX Non-Admin Reason: No Insulin Coverage Ketorolac Tromethamine (Ketorolac Tromethamine 15 Mg/Ml Vial) 15 mg IVPUSH Q12H PRN PRN Reason: Fever >100.4 Last Admin: 10/05/25 22:01 Dose: 15 mg Documented By: ALEX Levothyroxine Sodium (Levothyroxine Sodium 100 Mcg/5 Ml Vial) 100 mcg IVPUSH DAILY@0600 [facility] Last Admin: 10/06/25 05:55 Dose: 100 mcg Documented By: ALEX Meropenem (Meropenem 1 Gm Vial) 1 gm IV Q8H [facility] Last Admin: 10/06/25 04:00 Dose: 1 gm Documented By: ALEX Midazolam HCl (Midazolam Hcl 2 Mg/2 Ml Vial) 1 mg IVPUSH Q4H PRN PRN Reason: Anxiety Last Admin: 10/03/25 23:37 Dose: 1 mg Documented By: DOMO Morphine Sulfate (Morphine Sulfate 4 Mg/Ml Cartridge) 4 mg IVPUSH Q6H PRN; Protocol PRN Reason: Pain, Severe (Pain Scale 7-10) Last Admin: 10/05/25 19:18 Dose: 4 mg Documented By: NATALIE Ondansetron HCl (Ondansetron Hcl 4 Mg/2 Ml Vial) 4 mg IVPUSH Q4H PRN PRN Reason: Nausea and Vomiting Last Admin: 10/03/25 07:59 Dose: 4 mg Documented By: TASH Pantoprazole Sodium (Pantoprazole Sodium 40 Mg/10 Ml Vial) 40 mg IVPUSH DAILY@0630 [facility] Last Admin: 10/06/25 05:55 Dose: 40 mg Documented By: ALEX Pharmacy Consult (Consult Rx Vancomycin Dosing) 1 each MISCELLANE DAILY PRN PRN Reason: Consult order <Des Escoto PA-C - Last Filed: 10/06/25 11:09> Labs CBC & Chem 7: 10/06/25 06:22 10/06/25 06:22 <Des Escoto PA-C - Last Filed: 10/06/25 11:09> Labs: Laboratory Results - last 24 hr 10/05/25 10/05/25 10/05/25 12:39 17:27 18:02 MCV MCH MCHC RDW Plt Count MPV Immature Gran % (Auto) Neut % (Auto) Lymph % (Auto) [place] % (Auto) Eos % (Auto) Baso % (Auto) Lymph # (Auto) [place] # (Auto) Eos # (Auto) Baso # (Auto) Abs Immat Gran (auto) Absolute Neuts (auto) Absolute Nucleated RBC Nucleated RBC % (auto) Neutrophils % (Manual) Band Neutrophils % Lymphocytes % (Manual) Monocytes % (Manual) Eosinophils % (Manual) Metamyelocytes % Myelocytes % Abs Neuts (Manual) Lymphocytes # (Manual) Monocytes # (Manual) Eosinophils # (Manual) Metamyelocytes # Myelocytes # Platelet Estimate Plt Morphology Comment RBC Morphology Polychromasia Hypochromasia Target Cells Anion Gap Estim Creat Clear Calc Estimated GFR POC Glucose 86 88 Random Glucose Calcium Phosphorus Magnesium Albumin Vancomycin Trough 16.3 10/05/25 10/06/25 10/06/25 23:29 05:55 06:22 MCV 79.0 L MCH 26.2 L MCHC 33.2 RDW 15.1 Plt Count 396 MPV 9.7 Immature Gran % (Auto) Cancelled Neut % (Auto) Cancelled Lymph % (Auto) Cancelled [place] % (Auto) Cancelled Eos % (Auto) Cancelled Baso % (Auto) Cancelled Lymph # (Auto) Cancelled [place] # (Auto) Cancelled Eos # (Auto) Cancelled Baso # (Auto) Cancelled Abs Immat Gran (auto) Cancelled Absolute Neuts (auto) Cancelled Absolute Nucleated RBC 0.000 Nucleated RBC % (auto) 0.0 Neutrophils % (Manual) 75 H Band Neutrophils % 7 H Lymphocytes % (Manual) 11 L Monocytes % (Manual) 2 Eosinophils % (Manual) 2 Metamyelocytes % 1 Myelocytes % 2 Abs Neuts (Manual) 22.1 H Lymphocytes # (Manual) 3.0 Monocytes # (Manual) 0.5 Eosinophils # (Manual) 0.5 H Metamyelocytes # 0.3 Myelocytes # 0.5 Platelet Estimate NORMAL Plt Morphology Comment NORMAL RBC Morphology NOTED Polychromasia 1+ (0-2) Hypochromasia 1+ (5-14) Target Cells 1+ (5-14) Anion Gap 15 Estim Creat Clear Calc 65.8 Estimated GFR 48 POC Glucose 79 81 Random Glucose 81 Calcium 8.8 Phosphorus 2.6 L Magnesium 1.9 Albumin 3.6 Vancomycin Trough <Des Escoto PA-C - Last Filed: 10/06/25 11:09> Microbiology Microbiology Results: Microbiology 10/05/25 16:32 Gram Stain - Final Abscess Intra-abdominal Routine Culture - Preliminary No growth to date. Anaerobic Culture - Preliminary No growth to date. 10/04/25 14:10 Gram Stain - Final Sacrum Routine Culture - Preliminary Culture in progress. <Des Escoto PA-C - Last Filed: 10/06/25 11:09> Procedures Date of Service Date of Service: 10/06/25 <Des Escoto PA-C - Last Filed: 10/06/25 11:09> 10/06/25 <Abebe Amaro MD - Last Filed: 10/06/25 14:09> Progress Note: A&P Assessment and plan (1) Pelvic abscess in female: Status: Acute <Des Escoto PA-C - Last Filed: 10/06/25 11:09> Assessment and Plan: Doing well, abdominal pain, nausea resolved. Tolerating removal of NG. On exam abdomen soft benign mildly distended. Good active bowel sounds. Passing gas and stools this morning. Tolerating clear liquid diet, has been advanced to fulls. White count is actually elevated today now 27. She appears to be doing well from our standpoint. Can advance diet as tolerated, we will continue to follow along with serial abdominal exams. No growth on cultures to date Continue IV antibiotics Serial abdominal exams Advance diet as tolerated Follow up on cultures <Des Escoto PA-C - Last Filed: 10/06/25 11:09> Time Spent With Patient Time: Total time managing care of this patient today ____ minutes. <Des Escoto PA-C - Last Filed: 10/06/25 11:09> Quality Stroke Does the patient have a stroke diagnosis?: No <Des Escoto PA-C - Last Filed: 10/06/25 11:09> VTE Prior VTE?: No <Des Escoto PA-C - Last Filed: 10/06/25 11:09> VTE Risk Level:: Medical - moderate - high <Des Escoto PA-C - Last Filed: 10/06/25 11:09> VTE Device Contraindication: N/A - Device Ordered <Des Escoto PA-C - Last Filed: 10/06/25 11:09> VTE Drug Contraindication: N/A - Med Ordered <Des Escoto PA-C - Last Filed: 10/06/25 11:09>
--- NOTE | 2025-10-06 11:48 | ECG_ITS ---
Test Reason : check qt Blood Pressure : */* mmHG Vent. Rate : 74 BPM Atrial Rate : 74 BPM P-R Int : 164 ms QRS Dur : 94 ms QT Int : 414 ms P-R-T Axes : 39 -6 56 degrees QTcB Int : 459 ms Normal sinus rhythm Low voltage QRS Cannot rule out Anterior infarct (cited on or before 16-Sep-2025) Abnormal ECG When compared with ECG of 05-Oct-2025 06:53, No significant change was found Referred By: Emy Ro Electronically Signed By: Ion Ahumada
[2025-10-06 11:50] LABS: Glucose, Whole Blood 157 mg/dL (60-115)
[2025-10-06 12:00] VITALS: BP 116/52; PULSE 68; RESP 19; TEMP 36.1; O2SAT 99
[2025-10-06 16:00] VITALS: BP 131/66; PULSE 80; RESP 18; TEMP 36.6; O2SAT 97
[2025-10-06 17:05] LABS: Glucose, Whole Blood 138 mg/dL (60-115)
[2025-10-06 19:56] VITALS: BP 133/61; PULSE 92; RESP 16; TEMP 36.7; O2SAT 96
[2025-10-06 21:22] LABS: Glucose, Whole Blood 165 mg/dL (60-115)
[2025-10-07] VITALS (9 sets, daily range): BP systolic 98–145; BP diastolic 50–71; PULSE 70–88; RESP 16–20; TEMP 36.4–37.4; O2SAT 96–98; BMI 34.4
--- NOTE | 2025-10-07 00:11 | PM.IDPN ---
Subjective Subjective Date of Service: 10/07/25 Critical Care Time (minutes): 15 Comment: patient feels better WBC elevated Objective Data Labs 10/06/25 06:22 10/06/25 06:22 Labs: Laboratory Results - last 24 hr 10/06/25 10/06/25 10/06/25 05:55 06:22 11:45 WBC 27.0 H RBC 3.43 L Hgb 9.0 L Hct 27.1 L MCV 79.0 L MCH 26.2 L MCHC 33.2 RDW 15.1 Plt Count 396 MPV 9.7 Immature Gran % (Auto) Cancelled Neut % (Auto) Cancelled Lymph % (Auto) Cancelled [place] % (Auto) Cancelled Eos % (Auto) Cancelled Baso % (Auto) Cancelled Lymph # (Auto) Cancelled [place] # (Auto) Cancelled Eos # (Auto) Cancelled Baso # (Auto) Cancelled Abs Immat Gran (auto) Cancelled Absolute Neuts (auto) Cancelled Absolute Nucleated RBC 0.000 Nucleated RBC % (auto) 0.0 Neutrophils % (Manual) 75 H Band Neutrophils % 7 H Lymphocytes % (Manual) 11 L Monocytes % (Manual) 2 Eosinophils % (Manual) 2 Metamyelocytes % 1 Myelocytes % 2 Abs Neuts (Manual) 22.1 H Lymphocytes # (Manual) 3.0 Monocytes # (Manual) 0.5 Eosinophils # (Manual) 0.5 H Metamyelocytes # 0.3 Myelocytes # 0.5 Platelet Estimate NORMAL Plt Morphology Comment NORMAL RBC Morphology NOTED Polychromasia 1+ (0-2) Hypochromasia 1+ (5-14) Target Cells 1+ (5-14) Sodium 143 Potassium 3.5 Chloride 108 Carbon Dioxide 24 Anion Gap 15 BUN 13 Creatinine 1.17 Estim Creat Clear Calc 65.8 Estimated GFR 48 POC Glucose 81 157 H Random Glucose 81 Calcium 8.8 Phosphorus 2.6 L Magnesium 1.9 Albumin 3.6 Random Vancomycin 10/06/25 10/06/25 10/06/25 17:01 17:46 21:07 WBC RBC Hgb Hct MCV MCH MCHC RDW Plt Count MPV Immature Gran % (Auto) Neut % (Auto) Lymph % (Auto) [place] % (Auto) Eos % (Auto) Baso % (Auto) Lymph # (Auto) [place] # (Auto) Eos # (Auto) Baso # (Auto) Abs Immat Gran (auto) Absolute Neuts (auto) Absolute Nucleated RBC Nucleated RBC % (auto) Neutrophils % (Manual) Band Neutrophils % Lymphocytes % (Manual) Monocytes % (Manual) Eosinophils % (Manual) Metamyelocytes % Myelocytes % Abs Neuts (Manual) Lymphocytes # (Manual) Monocytes # (Manual) Eosinophils # (Manual) Metamyelocytes # Myelocytes # Platelet Estimate Plt Morphology Comment RBC Morphology Polychromasia Hypochromasia Target Cells Sodium Potassium Chloride Carbon Dioxide Anion Gap BUN Creatinine Estim Creat Clear Calc Estimated GFR POC Glucose 138 H 165 H Random Glucose Calcium Phosphorus Magnesium Albumin Random Vancomycin 17.0 Microbiology Microbiology Results: Microbiology 10/05/25 16:32 Abscess Intra-abdominal Gram Stain - Final 10/05/25 16:32 Abscess Intra-abdominal Routine Culture - Preliminary No growth to date. 10/05/25 16:32 Abscess Intra-abdominal Anaerobic Culture - Preliminary No growth to date. 10/01/25 10:48 Blood - Venous Blood Culture - Final No growth after 5 days. 10/01/25 10:46 Blood - Venous Blood Culture - Final No growth after 5 days. 10/04/25 14:10 Sacrum Gram Stain - Final 10/04/25 14:10 Sacrum Routine Culture - Preliminary Culture in progress. 10/01/25 14:28 Urine clean catch - Clean Catch Midstream Urine Culture - Final Physical Exam Vital Signs: Vital Signs: Last Vital Signs Temp 97.6 F 10/07/25 00:00 Pulse 80 10/07/25 00:00 Resp 20 10/07/25 00:00 BP 98/51 L 10/07/25 00:00 Pulse Ox 97 10/07/25 00:00 O2 Del Method Nasal Cannula 10/07/25 00:00 O2 Flow Rate 1 10/07/25 00:00 BMI result Body Mass Index 32.9 Const: General: cooperative Resp: Effort & Inspection: normal respiratory effort Cardio: Rate: regular rate GI: Inspection: Yes normal to inspection Extrem: General: Yes normal to inspection Assessment and Plan Assessment and plan (1) Ileus: Problem details: So far negative cultures and pathology Leukemoid reaction can come from ileus,steroids ,combination She remains on Merem and flagyl,day 5 hospital ,on antibiotics Status: Acute Plan Would continue Merem and flagyl for now,possible 7 or more days total Time Spent With Patient Time: Total time managing care of this patient today ____ minutes.
[2025-10-07] MEDS: metroNIDAZOLE/NS 500 MG/100 ML PIGGYBACK 100 MG IV ×2 (01:00→13:03)
[2025-10-07 03:54] LABS: CDiff Gene PCR NEGATIVE (Negative)
[2025-10-07 07:15] LABS: Hematocrit 28.2 % (37.0-47.0); Hemoglobin 9.5 g/dl (12.0-16.0); Mean Corpuscular HGB Conc 33.7 g/dl (31.0-35.0); Mean Corpuscular Hemoglobin 26.0 pg (27.0-33.0); Mean Corpuscular Volume 77.0 fL (80.0-98.0); NRBC Abs Auto 0.000 X10*3/uL (0.0-0.012); NRBC Pct Auto 0.0 /100WBC (0.0-0.2); Platelet Count 429 X10*3/uL (160-400); Red Blood Count 3.66 X10*6/uL (4.20-5.50); White Blood Count 27.5 X10*3/uL (4.8-10.8)
[2025-10-07 07:20] LABS: Glucose, Whole Blood 140 mg/dL (60-115)
[2025-10-07 07:26] LABS: Alanine Aminotransferase 53 U/L (0-31); Albumin Level 3.5 g/dL (3.5-5.0); Alkaline Phosphatase 222 U/L (39-117); Anion Gap 15 (12-20); Aspartate Amino Transferase 51 U/L (5-31); Blood Urea Nitrogen 10 mg/dL (9-16); Calcium 8.6 mg/dL (8.4-10.2); Carbon Dioxide 25 mmol/L (22-29); Chloride 105 mmol/L (96-108); Creatinine Clr Calc Pharmacy 77.3; Estimated Glomerular Filt Rate 57; Magnesium 1.6 mg/dL (1.6-2.6); Potassium 3.3 mmol/L (3.3-5.1); Sodium 142 mmol/L (135-145); Total Protein 6.8 g/dL (6.5-8.0)
--- NOTE | 2025-10-07 07:26 | P.PNIM_ITS ---
Subjective Subjective Date of Service: 10/07/25 Interval History: Patient continues to improve Workup thus far unremarkable except leukocytosis continues to plateau Likely we will take some time for her to respond If continues to improve we will discharge her tomorrow she is thrilled and excited about it Review of Systems Review of Systems: Yes all other systems are reviewed and are negative Physical Exam 2 Vital Signs: Vital Signs: Last Vital Signs Temp 98.0 F 10/06/25 03:12 Pulse 78 10/06/25 03:12 Resp 18 10/06/25 03:12 BP 119/58 L 10/06/25 03:12 Pulse Ox 96 10/06/25 03:12 O2 Del Method Nasal Cannula 10/06/25 03:12 O2 Flow Rate 2 10/06/25 03:12 BMI result Body Mass Index 32.9 Const: General: comfortable and no acute distress O rientation/consciousness: patient oriented x3 Resp: Effort & Inspection: normal respiratory effort and able to speak in complete sentences GI: Inspection: Yes distended (Mild) Palpation (GI): Soft to palpation, nontender and no guarding Percussion: Yes normal to percussion A uscultation: normal bowel sounds Neuro: General: patient oriented x3 Objective Data Active Medications Albuterol Sulfate (Albuterol Sulfate 90 Mcg 8 Gm Inhaler) 2 puff INHALE QID PRN PRN Reason: Wheezing Albuterol/Ipratropium (Albuterol/Iprat 2.5/0.5mg 3 Ml Ampul.Neb) 3 ml INHALE RQ4H WHILE AWAKE PRN PRN Reason: Wheezing Last Admin: 10/04/25 07:12 Dose: 3 ml Documented By: LETTY Albuterol/Ipratropium (Albuterol/Iprat 2.5/0.5mg 3 Ml Ampul.Neb) 3 ml INHALE QID PRN PRN Reason: asthma Aripiprazole (Aripiprazole 20 Mg Tablet) 20 mg PO BEDTIME [facility] Last Admin: 10/06/25 21:49 Dose: 20 mg Documented By: FESTUS Aspirin (Aspirin Enteric Coated 81 Mg Tablet.) 81 mg PO DAILY [facility] Atorvastatin Calcium (Atorvastatin Calcium 40 Mg Tablet) 40 mg PO BEDTIME [facility] Last Admin: 10/06/25 21:49 Dose: 40 mg Documented By: FESTUS Baclofen (Baclofen 10 Mg Tablet) 10 mg PO TID PRN PRN Reason: Muscle Spasm Baclofen (Baclofen 10 Mg Tablet) 10 mg PO TID PRN PRN Reason: Muscle Spasm Bupropion HCl (Bupropion Hcl Xl 150 Mg Tab.Er.24h) 150 mg PO DAILY [facility] Clonazepam (Clonazepam 1 Mg Tablet) 1 mg PO BID PRN PRN Reason: Anxiety Last Admin: 10/06/25 21:49 Dose: 1 mg Documented By: FESTUS Dextrose (Dextrose 50 % 25 Gm/50 Ml Syringe) 25 gm IVPUSH Q15M PRN; Protocol PRN Reason: per Hypoglycemia Standing Ord. Enoxaparin Sodium (Enoxaparin Sodium 40 Mg/0.4 Ml Syringe) 40 mg SUBCUT Q24H [facility] Last Admin: 10/06/25 15:50 Dose: 40 mg Documented By: NILSON Ferrous Sulfate (Ferrous Sulfate 324 Mg Tablet.Dr) 324 mg PO DAILY [facility] Glucose (Glucose Gel 15 Gm Gel..Gram.) 15 gm PO Q15M PRN; Protocol PRN Reason: per Hypoglycemia Standing Ord. Haloperidol (Haloperidol 0.5 Mg Tablet) 2.5 mg PO BID [facility] Last Admin: 10/06/25 21:49 Dose: 2.5 mg Documented By: FESTUS Metronidazole (Flagyl) 500 mg in 100 mls @ 100 mls/hr IV Q12H [facility] Last Infusion: 10/07/25 02:49 Dose: Infused Documented By: FESTUS Insulin Human Lispro (Insulin Lispro 100 Unit/Ml 3 Ml Vial) 0 unit SUBCUT QIDACHS [facility]; Protocol Last Admin: 10/06/25 21:51 Dose: 2 unit Documented By: FESTUS Levothyroxine Sodium (Levothyroxine Sodium 200 Mcg Tablet) 400 mcg PO DAILY@0600 [facility] Last Admin: 10/07/25 06:07 Dose: 400 mcg Documented By: FESTUS Loratadine (Loratadine 10 Mg Tablet) 10 mg PO DAILY [facility] Meropenem (Meropenem 1 Gm Vial) 1 gm IVPUSH Q8H [facility] Last Admin: 10/07/25 03:59 Dose: 1 gm Documented By: FESTUS Montelukast Sodium (Montelukast Sodium 10 Mg Tablet) 10 mg PO BEDTIME [facility] Last Admin: 10/06/25 21:49 Dose: 10 mg Documented By: FESTUS Morphine Sulfate (Morphine Sulfate 4 Mg/Ml Cartridge) 4 mg IVPUSH Q6H PRN; Protocol PRN Reason: Pain, Severe (Pain Scale 7-10) Last Admin: 10/07/25 03:59 Dose: 4 mg Documented By: FESTUS Ondansetron HCl (Ondansetron Hcl 4 Mg/2 Ml Vial) 4 mg IVPUSH Q4H PRN PRN Reason: Nausea and Vomiting Last Admin: 10/03/25 07:59 Dose: 4 mg Documented By: RIONAMITA Pantoprazole Sodium (Pantoprazole Sodium 40 Mg/10 Ml Vial) 40 mg IVPUSH DAILY@0630 [facility] Last Admin: 10/07/25 06:07 Dose: 40 mg Documented By: FESTUS Tiotropium [place] (Tiotropium [place] 2.5 Mcg 1 Puff/2.5 Mcg Mist.Inhal) 2 puff INHALE RDAILY [facility] Labs 10/07/25 06:41 10/07/25 06:41 Labs: Laboratory Results - last 24 hr 10/06/25 10/06/25 10/06/25 06:22 11:45 17:01 MCV MCH MCHC RDW Plt Count MPV Immature Gran % (Auto) Neut % (Auto) Lymph % (Auto) [place] % (Auto) Eos % (Auto) Baso % (Auto) Lymph # (Auto) [place] # (Auto) Eos # (Auto) Baso # (Auto) Abs Immat Gran (auto) Absolute Neuts (auto) Absolute Nucleated RBC Nucleated RBC % (auto) Neutrophils % (Manual) 75 H Band Neutrophils % 7 H Lymphocytes % (Manual) 11 L Monocytes % (Manual) 2 Eosinophils % (Manual) 2 Metamyelocytes % 1 Myelocytes % 2 Abs Neuts (Manual) 22.1 H Lymphocytes # (Manual) 3.0 Monocytes # (Manual) 0.5 Eosinophils # (Manual) 0.5 H Metamyelocytes # 0.3 Myelocytes # 0.5 Platelet Estimate NORMAL Plt Morphology Comment NORMAL RBC Morphology NOTED Polychromasia 1+ (0-2) Hypochromasia 1+ (5-14) Target Cells 1+ (5-14) POC Glucose 157 H 138 H Random Vancomycin C. difficile Tox B Gene 10/06/25 10/06/25 10/07/25 17:46 21:07 02:54 MCV MCH MCHC RDW Plt Count MPV Immature Gran % (Auto) Neut % (Auto) Lymph % (Auto) [place] % (Auto) Eos % (Auto) Baso % (Auto) Lymph # (Auto) [place] # (Auto) Eos # (Auto) Baso # (Auto) Abs Immat Gran (auto) Absolute Neuts (auto) Absolute Nucleated RBC Nucleated RBC % (auto) Neutrophils % (Manual) Band Neutrophils % Lymphocytes % (Manual) Monocytes % (Manual) Eosinophils % (Manual) Metamyelocytes % Myelocytes % Abs Neuts (Manual) Lymphocytes # (Manual) Monocytes # (Manual) Eosinophils # (Manual) Metamyelocytes # Myelocytes # Platelet Estimate Plt Morphology Comment RBC Morphology Polychromasia Hypochromasia Target Cells POC Glucose 165 H Random Vancomycin 17.0 C. difficile Tox B Gene NEGATIVE 10/07/25 10/07/25 06:41 07:11 MCV 77.0 L MCH 26.0 L MCHC 33.7 RDW 14.9 Plt Count 429 H MPV 9.3 L Immature Gran % (Auto) Cancelled Neut % (Auto) Cancelled Lymph % (Auto) Cancelled [place] % (Auto) Cancelled Eos % (Auto) Cancelled Baso % (Auto) Cancelled Lymph # (Auto) Cancelled [place] # (Auto) Cancelled Eos # (Auto) Cancelled Baso # (Auto) Cancelled Abs Immat Gran (auto) Cancelled Absolute Neuts (auto) Cancelled Absolute Nucleated RBC 0.000 Nucleated RBC % (auto) 0.0 Neutrophils % (Manual) Band Neutrophils % Lymphocytes % (Manual) Monocytes % (Manual) Eosinophils % (Manual) Metamyelocytes % Myelocytes % Abs Neuts (Manual) Lymphocytes # (Manual) Monocytes # (Manual) Eosinophils # (Manual) Metamyelocytes # Myelocytes # Platelet Estimate Plt Morphology Comment RBC Morphology Polychromasia Hypochromasia Target Cells POC Glucose 140 H Random Vancomycin C. difficile Tox B Gene Microbiology Microbiology Results: Microbiology 10/05/25 16:32 Gram Stain - Final Abscess Intra-abdominal Routine Culture - Preliminary No growth to date. Anaerobic Culture - Preliminary No growth to date. 10/01/25 10:48 Blood Culture - Final Blood - Venous No growth after 5 days. 10/01/25 10:46 Blood Culture - Final Blood - Venous No growth after 5 days. 10/04/25 14:10 Gram Stain - Final Sacrum Routine Culture - Preliminary Culture in progress. Assessment and Plan (1) Pelvic abscess in female: Status: Acute Plan 55-year-old lady with underlying obesity, diabetes mellitus, DANIEL, thyroid and lung cancers status post resections, recurrent abnormal uterine bleeding admitted on 09/30/2025 with sepsis prodrome, further complicated by ileus requiring nasogastric tube decompression, brief ICU stay from 10/01/2025 to 10/05/2025 with abdominal imaging suggestive for pelvic abscess now status post IR drainage and with improving ileus. Patient is on the floors from 10/06/2025. Pelvic abscess in female s/p IR drain Likely from a UTI Currently on meropenem and metronidazole, discontinue vancomycin Leukocytosis plateauing unclear etiology , could be from the steroids, however patient hemodynamically stable and afebrile and able to tolerate p.o. diet and has good bowel movement and has negative GI panel and C diff panel Surgery and Ob and ID were consulted while in ICU Patient is tolerating liquid diet we will advance as tolerated, patient able to take p.o. meds as well Bacterial vaginosis-continue metronidazole CAD-aspirin and statin Pain-continue home p.r.n. meds MARGARITA -continue ferrous sulfate Hypothyroidism-resume p.o. levothyroxine DM type 2-insulin sliding scale while inpatient DANIEL CPAP \ Thyroid and lung cancer status post resection-outpatient oncology management DVT prophylaxis with Lovenox while inpatient Full code We will continue hospitalization as the patient needs IV antibiotics and need to challenge with p.o. meds prior to discharge. If able to tolerate p.o. can be discharged tomorrow This note is constructed using voice recognition software. While every effort has been made to ensure accuracy, electrician journeyman wireman errors may have been included. Quality Stroke Does the patient have a stroke diagnosis?: No VTE Prior VTE?: No VTE Risk Level:: Medical - moderate - high VTE Device Contraindication: N/A - Device Ordered VTE Drug Contraindication: N/A - Med Ordered
[2025-10-07] MEDS: Tiotropium Bromide 2.5 mcg 1 PUFF/2.5 MCG MIST.INHAL 2 PUFF INHALE (07:45)
[2025-10-07 07:51] LABS: Band Neutrophils Percent 7 % (3-5); Lymphocytes Absolute Manual 2.2 X10*3/uL (1.2-4.9); Lymphocytes Percent Manual 8 % (20-40); Metamyelocytes Absolute 0.6 X10*3/uL; Metamyelocytes Percent 2 %; Monocytes Absolute Manual 1.7 X10*3/uL (0.1-1.2); Monocytes Percent Manual 6 % (2-11); Myelocytes Absolute 0.3 X10*/uL; Myelocytes Percent 1 %; Neutrophils Absolute Manual 22.8 X10*3/uL (2.0-8.3); Neutrophils Percent Manual 76 % (45-73)
[2025-10-07 07:54] LABS: RBC Morphology NOTED
[2025-10-07 07:55] LABS: Hypochromasia 1+ (5-14) /OIF; Microcytosis 1+ (5-14) /OIF; Polychromasia 1+ (0-2) /OIF
[2025-10-07 07:56] LABS: Target Cells 1+ (5-14) /OIF; Tear Drop Cells 1+ (0-2) /OIF
[2025-10-07 07:57] LABS: Toxic Vacuolation PRESENT
[2025-10-07] MEDS: Ferrous Sulfate 324 MG TABLET.DR PO (08:55)
[2025-10-07] MEDS: buPROPion HCl XL 150 MG TAB.ER.24H PO (08:55)
[2025-10-07] MEDS: Aspirin Enteric Coated 81 MG TABLET.DR PO (08:55)
[2025-10-07 09:04] LABS: E. coli EAEC Not Detected (Not Detect.); E. coli EPEC Not Detected (Not Detect.); E. coli ETEC Not Detected (Not Detect.); E. coli STEC Not Detected (Not Detect.); Shigella sp./EIEC Not Detected (Not Detect.)
[2025-10-07 10:57] LABS: MRSA Nasal PCR NEGATIVE (Negative); SA Nasal PCR NEGATIVE (Negative)
[2025-10-07 11:10] LABS: Glucose, Whole Blood 135 mg/dL (60-115)
[2025-10-07 16:03] LABS: Glucose, Whole Blood 142 mg/dL (60-115)
[2025-10-07 20:09] LABS: Glucose, Whole Blood 154 mg/dL (60-115)
[2025-10-08] MEDS: metroNIDAZOLE/NS 500 MG/100 ML PIGGYBACK 100 MG IV (02:01)
[2025-10-08 03:24] VITALS: BP 142/68; PULSE 82; RESP 18; TEMP 36.8; O2SAT 99
[2025-10-08 06:00] VITALS: BMI 33.3
[2025-10-08 06:56] LABS: Hematocrit 28.9 % (37.0-47.0); Hemoglobin 9.8 g/dl (12.0-16.0); Mean Corpuscular HGB Conc 33.9 g/dl (31.0-35.0); Mean Corpuscular Hemoglobin 26.1 pg (27.0-33.0); Mean Corpuscular Volume 77.1 fL (80.0-98.0); NRBC Abs Auto 0.000 X10*3/uL (0.0-0.012); NRBC Pct Auto 0.0 /100WBC (0.0-0.2); Platelet Count 436 X10*3/uL (160-400); Red Blood Count 3.75 X10*6/uL (4.20-5.50); White Blood Count 27.1 X10*3/uL (4.8-10.8)
[2025-10-08 07:02] LABS: Alanine Aminotransferase 42 U/L (0-31); Albumin Level 3.5 g/dL (3.5-5.0); Alkaline Phosphatase 210 U/L (39-117); Anion Gap 15 (12-20); Aspartate Amino Transferase 52 U/L (5-31); Blood Urea Nitrogen 8 mg/dL (9-16); Calcium 8.5 mg/dL (8.4-10.2); Carbon Dioxide 24 mmol/L (22-29); Chloride 106 mmol/L (96-108); Creatinine Clr Calc Pharmacy 78.3; Estimated Glomerular Filt Rate 59; Magnesium 1.5 mg/dL (1.6-2.6); Potassium 3.4 mmol/L (3.3-5.1); Sodium 142 mmol/L (135-145); Total Protein 7.0 g/dL (6.5-8.0)
[2025-10-08 07:05] LABS: Glucose, Whole Blood 129 mg/dL (60-115)
[2025-10-08] MEDS: Tiotropium Bromide 2.5 mcg 1 PUFF/2.5 MCG MIST.INHAL 2 PUFF INHALE (07:18)
[2025-10-08 07:20] VITALS: PULSE 82; RESP 18; O2SAT 95
[2025-10-08 07:28] VITALS: BP 131/61; PULSE 74; RESP 18; TEMP 36.4; O2SAT 96
[2025-10-08 08:15] LABS: Band Neutrophils Percent 3 % (3-5); Eosinophils Absolute Manual 0.3 X10*3/uL (0.0-0.4); Eosinophils Percent Manual 1 % (0-4); Lymphocytes Absolute Manual 2.7 X10*3/uL (1.2-4.9); Lymphocytes Percent Manual 10 % (20-40); Monocytes Absolute Manual 1.6 X10*3/uL (0.1-1.2); Monocytes Percent Manual 6 % (2-11); Myelocytes Absolute 0.3 X10*/uL; Myelocytes Percent 1 %; Neutrophils Absolute Manual 22.2 X10*3/uL (2.0-8.3); Neutrophils Percent Manual 79 % (45-73)
[2025-10-08 08:17] LABS: Hypochromasia 1+ (5-14) /OIF; Polychromasia 1+ (0-2) /OIF; RBC Morphology NOTED
[2025-10-08] MEDS: Aspirin Enteric Coated 81 MG TABLET.DR PO (09:18)
[2025-10-08] MEDS: Ferrous Sulfate 324 MG TABLET.DR PO (09:18)
[2025-10-08] MEDS: buPROPion HCl XL 150 MG TAB.ER.24H PO (09:18)
[2025-10-08 11:06] LABS: Glucose, Whole Blood 186 mg/dL (60-115)
[2025-10-08 11:31] VITALS: BP 132/60; PULSE 84; RESP 18; TEMP 37.5; O2SAT 96
[2025-10-08] MEDS: iohexoL 350 MG/ML 100 ML INFUS..BTL 85 ML IV (13:46)
--- NOTE | 2025-10-08 15:28 | P.DS_ITS ---
DS: Providers Provider Date of Service: 10/08/25 Date of admission: 10/01/25 14:53 Date of discharge: 10/08/25 Primary care physician: Linda Murphy DO Consults: 10/02/25 09:20 Consult to Infectious Diseases Routine Consulting Provider: [facility] Reason for consultation: UTI, Prior ESBL 10/03/25 10:01 Consult to General Surgery Routine Consulting Provider: Maddie Stevens Reason for consultation: Ileus vs MBO 10/04/25 07:23 Consult to Obstetrics / Gynecology Routine Consulting Provider: Fercho Palmer Reason for consultation: tuboovarian abscess Has provider been notified: No DS: Diagnosis Discharge Diagnosis (1) Pelvic abscess in female: Status: Acute DS: Summary Hospital Course Hospital Course: Per H&P:Chief Complaint: Abdominal Pain Patient is a 55 Y F w/ bipolar disorder, diabetes mellitus, obesity c/b obstructive sleep apnea, prior thyroid cancer s/p resection, lung cancer, and recurrent abnormal uterine bleeding, presenting to ED on 09/30 w/ chills, dysuria, and abdominal pain; ED work-up demonstrating contaminated urinalysis, though likely urinary tract infection; of note, CT A/P not suggestive of nephrolithiasis, though demonstrating L adnexal mass; patient found to be intermittently hypotensive, prompting ICU admission for c/f worsening sepsis Hospital course: (1) Pelvic abscess in female: 55-year-old lady with underlying obesity, diabetes mellitus, DANIEL, thyroid and lung cancers status post resections, recurrent abnormal uterine bleeding admitted on 09/30/2025 with sepsis prodrome, further complicated by ileus requiring nasogastric tube decompression, brief ICU stay from 10/01/2025 to 10/05/2025 with abdominal imaging suggestive for pelvic abscess now status post IR drainage and with improving ileus. Patient is on the floors from 10/06/2025. Pelvic abscess in female s/p IR drain Likely from a UTI , no objective identifiable source of the pelvic abscess noted-infectious workup blood cultures wound and GI specimen and urine specimen, GI C diff did not reveal any identifiable source. She underwent IR guided pelvic abscess drain and it on 10/08/2025 with improvement in abdominal distent ion.. Surgery, OBGYN, ID was consulted by ICU. Repeat CT scan prior to discharge and IR drain was draining less than 35 cc for 4 days prior to discharge. CT scan did show improvement in her initially treated with IV antibiotics meropenem and metronidazole-meropenem for broad-spectrum coverage and metronidazole for bacterial vaginosis. This has been de-escalated to Augmentin and metronidazole p.o. for 7 more days post removal of intra-abdominal drain. Patient tolerated p.o. meds and and oral diet and has been hemodynamically stable and actually hypotensive since being on the floors. Give n the stability we believe that she is appropriate for discharge and she is thrilled about it. Persistent leukocytosis-leukemoid reaction we will take a couple of weeks to resolve. Patient afebrile, hemodynamically stable for nearly 4-5 days on the floors prior to discharge with resumption of hypotensive meds. Patient stated she has seen Hematology in outpatient settings and said that this is common for her. ID is also on board that this is likely a leukemoid reaction. Bacterial vaginosis-continue metronidazole for 7 more days post IR drain removal CAD-aspirin and statin Pain-continue home p.r.n. meds MARGARITA -continue ferrous sulfate Hypothyroidism-resume p.o. levothyroxine DM type 2-insulin sliding scale while inpatient DANIEL CPAP \ Thyroid and lung cancer status post resection-outpatient oncology management DVT prophylaxis with Lovenox while inpatient Full code PT cleared the patient patient is not needing any services at the time of discharge. This note is constructed using voice recognition software. While every effort has been made to ensure accuracy, surveillance specialist errors may have been included. Time spent discussing smoking cessation with patient: more than 10 minutes Status at Discharge Functional status at discharge: uses cane/walker Overall status at discharge: patient is back to baseline Time Attestation Discharge Coordination Time (in mins): 75 Quality: Safe Use of Opioids Does Pt have an Active Cancer Diagnosis on the Problem List?: Yes Opioid Measure Date for [facility] Report: 09/08/25 Opioid Measure Time for [facility] Report: 15:28 Quality: Stroke Does the patient have a stroke diagnosis?: No Physical Exam Vital Signs: Vital Signs: Last Vital Signs Temp 99.5 F 10/08/25 11:31 Pulse 84 10/08/25 11:31 Resp 18 10/08/25 11:31 BP 132/60 10/08/25 11:31 Pulse Ox 96 10/08/25 11:31 O2 Del Method Room Air 10/08/25 11:31 O2 Flow Rate 2 10/08/25 03:24 BMI result Body Mass Index 33.3 Const: General: comfortable and no acute distress Orientation/consciousness: patient oriented x3 Resp: Effort & Inspection: normal respiratory effort and able to speak in complete sentences GI: Inspection: Yes distended (Mild) Palpation (GI): Soft to palpation, nontender and no guarding Percussion: Yes normal to percussion Auscultation: normal bowel sounds Neuro: General: patient oriented x3 DS: Data Data Completed and Pending Completed studies during hospitalization [Text1]: Procedures Drainage of Left Pleural Cavity with Drainage Device, Percutaneous Endoscopic Approach (02/11/25) Excision of Left Lower Lung Lobe, Via Natural or Artificial Opening Endoscopic (02/11/25) Excision of Thorax Lymphatic, Percutaneous Endoscopic Approach, Diagnostic (02/11/25) Transfusion of Nonautologous Red Blood Cells into Peripheral Vein, Percutaneous Approach (02/11/25) Labs on day of discharge: Laboratory Results - last 24 hr 10/07/25 10/07/25 10/08/25 15:56 20:05 06:25 WBC 27.1 H RBC 3.75 L Hgb 9.8 L Hct 28.9 L MCV 77.1 L MCH 26.1 L MCHC 33.9 RDW 15.2 Plt Count 436 H MPV 9.4 Immature Gran % (Auto) Cancelled Neut % (Auto) Cancelled Lymph % (Auto) Cancelled [place] % (Auto) Cancelled Eos % (Auto) Cancelled Baso % (Auto) Cancelled Lymph # (Auto) Cancelled [place] # (Auto) Cancelled Eos # (Auto) Cancelled Baso # (Auto) Cancelled Abs Immat Gran (auto) Cancelled Absolute Neuts (auto) Cancelled Absolute Nucleated RBC 0.000 Nucleated RBC % (auto) 0.0 Neutrophils % (Manual) 79 H Band Neutrophils % 3 Lymphocytes % (Manual) 10 L Monocytes % (Manual) 6 Eosinophils % (Manual) 1 Myelocytes % 1 Abs Neuts (Manual) 22.2 H Lymphocytes # (Manual) 2.7 Monocytes # (Manual) 1.6 H Eosinophils # (Manual) 0.3 Myelocytes # 0.3 Platelet Estimate INCREASED Plt Morphology Comment NORMAL RBC Morphology NOTED Polychromasia 1+ (0-2) Hypochromasia 1+ (5-14) Sodium 142 Potassium 3.4 Chloride 106 Carbon Dioxide 24 Anion Gap 15 BUN 8 L Creatinine 0.99 Estim Creat Clear Calc 78.3 Estimated GFR 59 POC Glucose 142 H 154 H Random Glucose 128 H Calcium 8.5 Magnesium 1.5 L Total Bilirubin 0.6 AST 52 H ALT 42 H Alkaline Phosphatase 210 H Total Protein 7.0 Albumin 3.5 10/08/25 10/08/25 06:58 10:59 WBC RBC Hgb Hct MCV MCH MCHC RDW Plt Count MPV Immature Gran % (Auto) Neut % (Auto) Lymph % (Auto) [place] % (Auto) Eos % (Auto) Baso % (Auto) Lymph # (Auto) [place] # (Auto) Eos # (Auto) Baso # (Auto) Abs Immat Gran (auto) Absolute Neuts (auto) Absolute Nucleated RBC Nucleated RBC % (auto) Neutrophils % (Manual) Band Neutrophils % Lymphocytes % (Manual) Monocytes % (Manual) Eosinophils % (Manual) Myelocytes % Abs Neuts (Manual) Lymphocytes # (Manual) Monocytes # (Manual) Eosinophils # (Manual) Myelocytes # Platelet Estimate Plt Morphology Comment RBC Morphology Polychromasia Hypochromasia Sodium Potassium Chloride Carbon Dioxide Anion Gap BUN Creatinine Estim Creat Clear Calc Estimated GFR POC Glucose 129 H 186 H Random Glucose Calcium Magnesium Total Bilirubin AST ALT Alkaline Phosphatase Total Protein Albumin Preliminary micro results at discharge 10/05/25 16:32 Anaerobic Culture - Preliminary Abscess Intra-abdominal Culture in progress. Discharge Plan Discharge Anticipated Discharge Date/Time: 10/08/25 15:35 Patient Disposition: Home, Self-Care Discharge Diagnosis: Severe septic shock requiring pressors secondary to UTI Referrals: [facility] [Provider Group, General Surgery] - 1 Week Dana Georges MD [Physician, Infectious Disease] - 1 Week Referral Note: IMPRESSION: 1. The ovaries are enlarged and demonstrates a multilocular appearance consistent with tubo-ovarian abscesses as noted on MRI. The inflammatory process causes ureteral compression and moderate bilateral hydroureteronephrosis. 2. The previously placed pigtail catheter has retracted since placement, with the loop now to the left of the rectum. The previously noted fluid collection posterior to the uterus measures 3.1 x 2.6 x 5.7 cm in size. Linda Murphy DO [Primary Care Provider, Internal Medicine] - 1 Week Fercho Palmer MD [Physician, W[employer] WORKER] - 1 Week Referral Note: IMPRESSION: 1. The ovaries are enlarged and demonstrates a multilocular appearance consistent with tubo-ovarian abscesses as noted on MRI. The inflammatory process causes ureteral compression and moderate bilateral hydroureteronephrosis. 2. The previously placed pigtail catheter has retracted since placement, with the loop now to the left of the rectum. The previously noted fluid collection posterior to the uterus measures 3.1 x 2.6 x 5.7 cm in size. Jerry Viveros MD [Physician, Urology] - 1 Week Referral Note: IMPRESSION: 1. The ovaries are enlarged and demonstrates a multilocular appearance consistent with tubo-ovarian abscesses as noted on MRI. The inflammatory process causes ureteral compression and moderate bilateral hydroureteronephrosis. 2. The previously placed pigtail catheter has retracted since placement, with the loop now to the left of the rectum. The previously noted fluid collection posterior to the uterus measures 3.1 x 2.6 x 5.7 cm in size. Discharge Medications: New amoxicillin-pot clavulanate 875-125 mg Tablet 1 tab PO Q12H 7 Days Qty: 14 0RF metronidazole 500 mg Tablet 500 mg PO Q12H 7 Days Qty: 14 0RF Continued ondansetron 4 mg tablet,disintegrating 4 mg PO Q8H PRN (Reason: nausea and vomiting) Qty: 4 0RF Rybelsus 7 mg tablet 7 mg PO DAILY montelukast 10 mg tablet 10 mg PO BEDTIME loratadine 10 mg Tablet 10 mg PO DAILY pantoprazole 20 mg tablet,delayed release (DR/EC) 20 mg PO BID ipratropium-albuterol 0.5 mg-3 mg(2.5 mg base)/3 mL solution for nebulization 3 ml inhalation QID PRN (Reason: asthma) tramadol 50 mg tablet 50 mg PO Q8H PRN (Reason: severe pain) ascorbic acid (vitamin C) 250 mg tablet 250 mg PO BID@1200,2100 ferrous fumarate [Ferrocite] 324 mg (106 mg iron) tablet 324 mg PO DAILY PNV no.95-ferrous fumarate-FA [] 28 mg iron- 800 mcg tablet 1 tab PO DAILY omega-3 fatty acids 1,000 mg Capsule 1,000 mg PO DAILY baclofen 10 mg tablet 10 mg PO TID PRN (Reason: muscle spasm) diclofenac sodium 1 % gel 2 g topical QID PRN (Reason: pain) tiotropium bromide [Spiriva with HandiHaler] 18 mcg capsule, w/inhalation device 1 cap inhalation DAILY Asmanex HFA 100 mcg/actuation HFA aerosol inhaler 2 puff INHALATION BID Tirosint-Michelle 200 mcg/mL solution 400 mcg PO DAILY@0200 gabapentin 600 mg tablet 600 mg PO TID lisinopril 2.5 mg tablet 2.5 mg PO DAILY@1200 metformin 500 mg tablet extended release 24 hr 1,000 mg PO BID atorvastatin 40 mg tablet 40 mg PO BEDTIME acetaminophen 650 mg tablet extended release 650 mg PO Q8H PRN (Reason: Pain) albuterol sulfate 90 mcg/actuation HFA aerosol inhaler 2 puff inhalation QID PRN (Reason: Wheezing) haloperidol 5 mg tablet 2.5 mg PO BID clonazepam [Klonopin] 1 mg tablet 1 mg PO BID PRN (Reason: Anxiety) glipizide 5 mg tablet 10 mg PO BID bupropion HCl 300 mg tablet extended release 24 hr 300 mg PO DAILY Patient Comments: to equal total dose of 450 mg daily aspirin 81 mg tablet,delayed release (DR/EC) 81 mg PO DAILY aripiprazole 20 mg tablet 20 mg PO BEDTIME bupropion HCl 150 mg tablet extended release 24 hr 150 mg PO DAILY Discharge Orders: Discharge Order (Routine); Ordered 10/08/25 Ordered By: Mindy Garay Diet: Low salt diet Activity on Discharge: As tolerated Stand Alone Forms: Patient Portal Discharge page Print Language: Maori Care Plan Goals: Complete antibiotics Augmentin and metronidazole for 7 more days Please follow up with GI outpatient within a week after discharge Please follow up with ID within a week or 2 after discharge PCP follow-up within a week after discharge Follow up with OBGYN for your enlarged multi loculated appearance consistent with 2 boys ovarian abscesses Please follow-up with urology for your moderate bilateral hydroureteronephrosis Please follow-up with your primary care for further management Please come to the ED within any new symptoms of infection or abdominal pain or discharge. Health Concerns: See above Plan of Treatment: See above Assessment: See above
--- NOTE | 2025-10-08 15:31 | P.CDIM_ITS ---
PROVIDER RESPONSE TEXT: To clarify, the appropriate diagnosis supported by the clinical indicators: Ileus: Adynamic, paralytic QUERY TEXT: PHYSICIAN'S DOCUMENTATION REQUEST Date of Query: 10/08/2025 07:44 AM EST Patient Name: Tisha Ruiz Admit Date: 10/01/2025 Dear Mindy Garay MD, A review of the medical record indicates additional documentation may be needed. Please review below and update the documentation accordingly. Clinical Indicators: ID progress note dated 10/07/25 - Ileus. So far negative cultures and pathology. Lalam and mj, antibiotics. ICU 10/05/25 - Recurrent abnormal uterine bleeding, complicated by ileus requiring nasogastric tube decompression. Abdominal imaging suggestive for pelvic abscess now status post IR drainage and with improving ileus. Possible to provide further specifics to the documented Ileus for this admission? Ileus Adynamic, obstructive, paralytic, mechanical, postoperative, ischemic stricture, duodenal, gallstone etc. Other specifics to the noted Ileus Other (explain) Clinically unable to determine (explain) Thank you, Kadi Trinidad, CCS, CDIS Use of terms such as suspected, likely, concern for, or probable (associated with a specific diagnosis that is being evaluated, monitored, or treated as if it exists) are acceptable and can be coded in the inpatient setting, when documented at the time of discharge. Please use your independent medical judgment in providing your response. THIS QUERY IS PART OF THE PERMANENT MEDICAL RECORD
[2025-10-08 15:35] VITALS: BP 129/72; PULSE 87; RESP 18; TEMP 37.2; O2SAT 96
--- NOTE | 2025-10-08 16:08 | MHC.CM.PN ---
SECOND IMM GIVEN 10/08. PATENT IS MEDICALLY CLEARED FOR DISCHARGE HOME SELF-CARE, PATIENTS WILL TRANSPORT HER HOME TODAY, PATIENT IS IN AGREEMENT WITH THE DISCHARGE PLAN.
[2025-10-08 16:12] LABS: Glucose, Whole Blood 156 mg/dL (60-115)
== END 2025-10-08 17:46 | disposition home or self-care (01) | DRG 871 ==
LOC: HO.ED 14:16 → HO.EDOVER 14:55 → HO.ICU 15:02 → HO.IMC 10-05 21:15
PROVIDERS: Internal Medicine Pulmonary Disease; Nurse Practitioner Family; Obstetrics & Gynecology; Physician Assistant; Radiology Diagnostic Radiology; Registered Nurse Community Health; Admitting Provider Internal Medicine Critical Care Medicine; Emergency Provider Emergency Medicine; PCP Family Medicine; Visit Provider Student in an Organized Health Care Education/Training Program
PROC: 0W9J3ZZ Drainage of Pelvic Cavity, Percutaneous Approach (ICD-10-PCS; principal; 2025-10-04 13:00)
DX: A41.9 Sepsis, unspecified organism (principal); R65.21 Severe sepsis with septic shock; N13.6 Pyonephrosis; K56.0 Paralytic ileus; C34.32 Malignant neoplasm of lower lobe, left bronchus or lung; E89.0 Postprocedural hypothyroidism; E66.9 Obesity, unspecified; Z68.33 Body mass index [BMI] 33.0-33.9, adult; I25.10 Atherosclerotic heart disease of native coronary artery without angina pectoris; Z85.850 Personal history of malignant neoplasm of thyroid; D50.9 Iron deficiency anemia, unspecified; Z90.2 Acquired absence of lung [part of]; N76.0 Acute vaginitis; Z87.440 Personal history of urinary (tract) infections; F31.9 Bipolar disorder, unspecified; N70.93 Salpingitis and oophoritis, unspecified; Z99.81 Dependence on supplemental oxygen; Z79.84 Long term (current) use of oral hypoglycemic drugs; Z79.899 Other long term (current) drug therapy
CPT/HCPCS: 36415; 49406; 71045; 71046; 72197; 74176; 74177; 74183; 76830; 76856; 80048; 80053; 80076; 80202; 81001; 81515; 82010; 82040; 82150; 82803; 82947; 83605; 83690; 83735; 84080; 84100; 84439; 84443; 84702; 85007; 85025; 85027; 85610; 87040; 87070; 87073; 87086; 87205; 87491; 87493; 87507; 87591; 87640; 87641; 88112; 88305; 93005; 94640; 97161; 99152; 99153; 99284; A9585; C1729; C1894; J0131; J0651; J0696; J1630; J1650; J1836; J1885; J2185; J2250; J2270; J2405; J2470; J2543; J3010; J3373; J3374; J3475; J3480; P9047; Q9967

== ENCOUNTER → 2025-10-01 10:34 | Outpatient (BNV) | payer OTHER, SELFPAY | PROVIDERS: Emergency Provider Emergency Medicine; PCP Family Medicine; Visit Provider Radiology Diagnostic Radiology | DX: K56.7 Ileus, unspecified (principal); R16.0 Hepatomegaly, not elsewhere classified; N93.9 Abnormal uterine and vaginal bleeding, unspecified; J98.11 Atelectasis | CPT/HCPCS: 71045; 74176; 76830; 76856 ==

== ENCOUNTER 2025-10-01 14:53 | Outpatient (BNV) | payer OTHER, SELFPAY | END 2025-10-02 11:48 | PROVIDERS: Admitting Provider Internal Medicine Critical Care Medicine; Emergency Provider Emergency Medicine; PCP Family Medicine; Visit Provider Internal Medicine | DX: R00.0 Tachycardia, unspecified (principal) | CPT/HCPCS: 93010 ==

== ENCOUNTER 2025-10-01 14:53 | Outpatient (BNV) | payer OTHER, SELFPAY | END 2025-10-05 11:48 | PROVIDERS: Admitting Provider Internal Medicine Critical Care Medicine; Emergency Provider Emergency Medicine; PCP Family Medicine; Visit Provider Internal Medicine Cardiovascular Disease | DX: R94.31 Abnormal electrocardiogram [ECG] [EKG] (principal); Z13.6 Encounter for screening for cardiovascular disorders | CPT/HCPCS: 93010 ==

== ENCOUNTER 2025-10-01 14:53 | Outpatient (BNV) | payer OTHER, SELFPAY | END 2025-10-04 11:48 | PROVIDERS: Admitting Provider Internal Medicine Critical Care Medicine; Emergency Provider Emergency Medicine; PCP Family Medicine; Visit Provider Internal Medicine Cardiovascular Disease | DX: R00.0 Tachycardia, unspecified (principal) | CPT/HCPCS: 93010 ==

== ENCOUNTER 2025-10-01 14:53 | Outpatient (BNV) | payer OTHER, SELFPAY | END 2025-10-04 13:04 | PROVIDERS: Admitting Provider Internal Medicine Critical Care Medicine; Emergency Provider Emergency Medicine; PCP Family Medicine; Visit Provider Radiology Diagnostic Radiology | DX: K65.1 Peritoneal abscess (principal) | CPT/HCPCS: 49406 ==

== ENCOUNTER 2025-10-01 14:53 | Outpatient (BNV) | payer OTHER, SELFPAY | END 2025-10-03 16:50 | PROVIDERS: Admitting Provider Internal Medicine Critical Care Medicine; Emergency Provider Emergency Medicine; PCP Family Medicine; Visit Provider Radiology Diagnostic Radiology | DX: N13.0 Hydronephrosis with ureteropelvic junction obstruction (principal); J90 Pleural effusion, not elsewhere classified; Z46.89 Encounter for fitting and adjustment of other specified devices | CPT/HCPCS: 71045; 72197; 74183 ==

== ENCOUNTER 2025-10-01 14:53 | Outpatient (BNV) | payer OTHER, SELFPAY | END 2025-10-02 08:00 | PROVIDERS: Admitting Provider Internal Medicine Critical Care Medicine; Emergency Provider Emergency Medicine; PCP Family Medicine; Visit Provider Radiology Vascular & Interventional Radiology | DX: N93.9 Abnormal uterine and vaginal bleeding, unspecified (principal); R19.09 Other intra-abdominal and pelvic swelling, mass and lump | CPT/HCPCS: 76830; 76856 ==

== ENCOUNTER 2025-10-01 14:53 | Outpatient (BNV) | payer OTHER, SELFPAY | END 2025-10-03 11:48 | PROVIDERS: Admitting Provider Internal Medicine Critical Care Medicine; Emergency Provider Emergency Medicine; PCP Family Medicine; Visit Provider Internal Medicine Cardiovascular Disease | DX: R00.0 Tachycardia, unspecified (principal) | CPT/HCPCS: 93010 ==

== ENCOUNTER 2025-10-01 14:53 | Outpatient (BNV) | payer OTHER, SELFPAY | END 2025-10-08 12:35 | PROVIDERS: Admitting Provider Internal Medicine Critical Care Medicine; Emergency Provider Emergency Medicine; PCP Family Medicine; Visit Provider Radiology Diagnostic Radiology | DX: N83.8 Other noninflammatory disorders of ovary, fallopian tube and broad ligament (principal) | CPT/HCPCS: 74177 ==

== ENCOUNTER 2025-10-01 14:53 | Outpatient (BNV) | payer OTHER, SELFPAY | END 2025-10-06 11:48 | PROVIDERS: Admitting Provider Internal Medicine Critical Care Medicine; Emergency Provider Emergency Medicine; PCP Family Medicine; Visit Provider Internal Medicine Cardiovascular Disease | DX: R94.31 Abnormal electrocardiogram [ECG] [EKG] (principal); Z13.6 Encounter for screening for cardiovascular disorders | CPT/HCPCS: 93010 ==

== ENCOUNTER → 2025-10-01 14:53 | Outpatient (BNV) | payer OTHER, SELFPAY | PROVIDERS: Admitting Provider Internal Medicine Critical Care Medicine; Emergency Provider Emergency Medicine; PCP Family Medicine; Visit Provider Internal Medicine Pulmonary Disease | DX: N73.9 Female pelvic inflammatory disease, unspecified (principal); K56.7 Ileus, unspecified; E11.9 Type 2 diabetes mellitus without complications; E89.0 Postprocedural hypothyroidism; N39.0 Urinary tract infection, site not specified; N76.0 Acute vaginitis; B96.89 Other specified bacterial agents as the cause of diseases classified elsewhere | CPT/HCPCS: 99232 ==

== ENCOUNTER → 2025-10-01 14:53 | Outpatient (BNV) | payer OTHER, SELFPAY | PROVIDERS: Admitting Provider Internal Medicine Critical Care Medicine; Emergency Provider Emergency Medicine; PCP Family Medicine; Visit Provider Obstetrics & Gynecology | DX: N73.9 Female pelvic inflammatory disease, unspecified (principal); N76.0 Acute vaginitis; B96.89 Other specified bacterial agents as the cause of diseases classified elsewhere | CPT/HCPCS: 99223; 99232 ==

== ENCOUNTER → 2025-10-01 14:53 | Outpatient (BNV) | payer OTHER, SELFPAY | PROVIDERS: Admitting Provider Internal Medicine Critical Care Medicine; Emergency Provider Emergency Medicine; PCP Family Medicine; Visit Provider Physician Assistant Surgical | DX: K56.7 Ileus, unspecified (principal); N73.9 Female pelvic inflammatory disease, unspecified | CPT/HCPCS: 99232 ==

== ENCOUNTER → 2025-10-01 14:53 | Outpatient (BNV) | payer OTHER, SELFPAY | PROVIDERS: Admitting Provider Internal Medicine Critical Care Medicine; Emergency Provider Emergency Medicine; PCP Family Medicine; Visit Provider Internal Medicine Critical Care Medicine | DX: N39.0 Urinary tract infection, site not specified (principal); A41.9 Sepsis, unspecified organism | CPT/HCPCS: 99223 ==

== ENCOUNTER → 2025-10-01 14:53 | Outpatient (BNV) | payer OTHER, SELFPAY | PROVIDERS: Admitting Provider Internal Medicine Critical Care Medicine; Emergency Provider Emergency Medicine; PCP Family Medicine; Visit Provider Student in an Organized Health Care Education/Training Program | DX: N73.9 Female pelvic inflammatory disease, unspecified (principal) | CPT/HCPCS: 99233; 99499 ==

== ENCOUNTER → 2025-10-01 14:53 | Outpatient (BNV) | payer OTHER, SELFPAY | PROVIDERS: Admitting Provider Internal Medicine Critical Care Medicine; Emergency Provider Emergency Medicine; PCP Family Medicine; Visit Provider Internal Medicine | DX: D72.829 Elevated white blood cell count, unspecified (principal); A41.9 Sepsis, unspecified organism | CPT/HCPCS: 99222 ==

== ENCOUNTER 2025-10-14 10:06 | Outpatient (REF) | payer OTHER, SELFPAY ==
--- NOTE | ~2025-10-14 | US_ITS ---
EXAMINATION: US TRIPLEX LOWER EXTREMITY, RIGHT CLINICAL INFORMATION: Right lower extremity swelling, prolonged hospitalization COMPARISON: None available. TECHNIQUE: Color-flow triplex imaging with spectral analysis and compression Doppler were performed on the right lower extremity. FINDINGS: Respiratory variation, normal compression and augmented flow are noted throughout the right lower extremity. The visualized common femoral vein, superficial femoral vein, profunda femoral vein, popliteal vein and midcalf posterior tibial venous segments show no evidence of deep venous thrombosis. The peroneal vein was not visualized. Edema results in a reticulated appearance of the subcutaneous soft tissues in the lower leg. US/US venous duplex LE RT IMPRESSION: No evidence of deep venous thrombosis involving the right lower extremity. Electronically signed by: Raulito Pillai MD 10/14/2025 11:11 AM KEL
--- OUTSIDE RECORDS SUMMARY | 2025-10-14 08:40 | XMS_ITS | Encounter Summary ---
Author Organization [employer] Address [address] [place] [address] [address] [place] [address] Care Team Providers Care Lead Pastor Name Role Phone Linda Murphy DO Primary Care Provider [phone] Reason for Referral * Imaging (STAT) - Authorized Specialty Diagnoses / Procedures Referred By Contac t Referred To Contact Cardiology Diagnoses Edema of right foot Procedures Vascular US lower extremity venous duplex right Baldo Benitez MD [address] [place] [address] Phone: tel: fax: [facility] [address] [place] [phone] Phone: tel: fax: Referral ID Status Reason Start Date Expiration Date Visits Requested Visits Authorized [id number] Authorized Perform Procedure 10/14/2025 10/14/2026 1 1 Reason for Visit * Reason Comments Foot Pain Encounter Details Date Type Department Care Team (Late st Contact Info) Description 10/14/2025 8:40 AM EST Office Visit [facility] [address], [place] [phone] Septic shock due to urinary tract infection (HCC) (Primary Dx); Acute kidney injury; Edema of right foot; Acute post-traumatic headache, not intractable Social History [...] Sign Reading Time Taken Comments Blood Pressure 127/67 10/14/2025 8:48 AM EST Pulse 94 10/14/2025 8:48 AM EST Temperature 36.7 C (98.1 F) 10/14/2025 8:48 AM EST Respiratory Rate 18 10/14/2025 8:48 AM EST Oxygen Saturation 97% 10/14/2025 8:48 AM EST Inhaled Oxygen Concentration - - Weight 99.8 kg (220 lb) 10/14/2025 8:48 AM EST Height - - Body Mass Index 34.46 10/01/2025 9:07 AM EST documented in this encounter Plan of Treatment Upcoming Encounters Date Type Department Care Team (Late st Contact Info) Description 10/18/2025 11:45 AM EST Office Visit [address] [address] Linda Murphy DO [address] [place] [phone] 10/26/2025 9:15 AM EST Office Visit [address] [address] Linda Murphy DO [address] [place] [phone] Scheduled Orders Name Type Priority Associated Diagnoses Orde r Schedule XR Ankle 3+ Views Right Imaging Routine Edema of right foot Expected: 10/14/2025, Expires: 10/14/2026 documented as of this encounter Goals Goal [...] chronic kidney disease No Linda Murphy DO Weekly blood pressure task Care Plan Weekly blood pressure task No Yaima Marquez RN Weekly blood pressure task Care Plan Weekly blood pressure task No Yaima Marquez RN Patient has chronic kidney disease Care Plan Patient has chronic kidney disease No Yaima Marquez RN Patient has chronic kidney disease Care Plan Patient has chronic kidney disease No Yaima Marquez RN Weekly blood pressure task Care Plan Weekly blood pressure task No Colon De Oliveira, Mona Weekly blood pressure task Care Plan Weekly blood pressure task No Colon De Oliveira, Mona Patient has chronic kidney disease Care Plan Patient has chronic kidney disease No Colon De Oliveira, Mona Patient has chronic kidney disease Care Plan Patient has chronic kidney disease No Colon De Oliveira, Mona Weekly blood pressure task Care Plan Weekly blood pressure task No Barlow Lorenys Weekly blood pressure task Care Plan Weekly blood pressure task No Barlow, Lorenys Patient has chronic kidney disease Care Plan Patient has chronic kidney disease No Barlow Lorenys Patient has chronic kidney disease Care Plan Patient has chronic kidney disease No Barlow Lorenys Weekly blood pressure task Care Plan Weekly blood pressure task No [place], [place] Weekly blood pressure task Care Plan Weekly blood pressure task No [place] Patient has chronic kidney disease Care Plan Patient has chronic kidney disease No [place] Patient has chronic kidney disease Care Plan Patient has chronic kidney disease No [place] Weekly blood pressure task Care Plan Weekly blood pressure task No Baldo Benitez MD Weekly blood pressure task Care Plan Weekly blood pressure task No Baldo Benitez MD Patient has chronic kidney disease Care Plan Patient has chronic kidney disease No Baldo Benitez MD Patient has chronic kidney disease Care Plan Patient has chronic kidney disease No Baldo Benitez MD Weekly blood pressure task Care Plan Weekly blood pressure task No Baldo Benitez MD Weekly blood pressure task Care Plan Weekly blood pressure task No Baldo Benitez MD Patient has chronic kidney disease Care Plan Patient has chronic kidney disease No Baldo Benitez MD Patient has chronic kidney disease Care Plan Patient has chronic kidney disease No Baldo Benitez MD documented as of this encounter Procedures Procedure Name Priority Date/Time Associated Diagnosis Comments CBC WITH AUTO DIFFERENTIAL Routine 10/14/2025 10:18 AM EST Septic shock due to urinary tract infection (HCC) COMPREHENSIVE METABOLIC PANEL Routine 10/14/2025 10:18 AM EST Acute kidney injury documented in this encounter Results * (ABNORMAL) CBC auto differential (10/14/2025 10:18 AM EST) White Blood Count 20.4(H) 4.8 - 10.8 X10*3/uL [facility] Red Blood Count 3.63(L) 4.20 - 5.50 X10*6/uL [facility] Hemoglobin 9.4(L) 12.0 - 16.0 g/dl [facility] Hematocrit 30.0(L) 37.0 - 47.0 % [facility] Mean Corpuscular Volume 82.6 80.0 - 98.0 fL [facility] Mean Corpuscular Hemoglobin 25.9(L) 27.0 - 33.0 pg [facility] Mean Corpuscular HGB Conc 31.3 31.0 - 35.0 g/dl [facility] Red Cell Distribution Width 15.9 11.0 - 16.0 % [facility] Platelet Count 625(H) 160 - 400 X10*3/uL [facility] Mean Platelet Volume 9.4 9.4 - 12.3 fL [facility] Neutrophils Percent Auto 77.4(H) 45 - 73 % [facility] Imm Gran Pct Auto 2.5(H) 0.0 - 0.4 % [facility] Lymphocytes Percent Auto 13.2(L) 20 - 40 % [facility] Monocytes Percent Auto 5.7 2 - 11 % [facility] Eosinophils Percent Auto 0.9 0 - 4 % [facility] Basophils Percent Auto 0.3 0 - 2 % [facility] NRBC Pct Auto 0.0 0.0 - 0.2 /100WBC [facility] Neutrophils Absolute Auto 15.8(H) 2.0 - 8.3 x10*3/uL [facility] Imm Gran Abs Auto 0.51(H) 0.00 - 0.03 X10*3/uL [facility] Lymphocytes Absolute Auto 2.7 1.2 - 4.9 X10*3/uL [facility] Monocytes Absolute Auto 1.2 0.1 - 1.2 X10*3/uL [facility] Eosinophils Absolute Auto 0.2 0.0 - 0.4 X10*3/uL [facility] Basophils Absolute Auto 0.1 0.0 - 0.2 X10*3/uL [facility] NRBC Abs Auto 0.000 0.0 - 0.012 X10*3/uL [facility] Blood Venous blood specimen / Unknown 10/14/2025 10:18 AM EST 10/14/2025 10:18 AM EST us Baldo Benitez MD LAB BLOOD ORDERABLES Final Resul t [facility] [address] [place] [address] [phone] * (ABNORMAL) Comprehensive Metabolic Panel (10/14/2025 10:18 AM EST) Sodium 143 135 - 145 mmol/L [facility] Potassium 3.7 3.3 - 5.1 mmol/L [facility] Chloride 104 96 - 108 mmol/L [facility] Carbon Dioxide 29 22 - 29 mmol/L [facility] Anion Gap 14 12 - 20 [facility] Urea Nitrogen (BUN) 9 9 - 16 mg/dL [facility] Creatinine, Serum 1.29 0.5 - 1.4 mg/dL [facility] Estimated Glomerular Filt Rate 43 [facility] Comment:Chronic Kidney Disea se: Estimated GFR < 60 mL/min/[id number] Kidney Disease: Estimated GFR < 15 mL/min/1.73m2 Glucose 146(H) 60 - 115 mg/dL [facility] Calcium 9.3 8.4 - 10.2 mg/dL [facility] Bilirubin, Total 0.2 0.0 - 1.0 mg/dL [facility] Aspartate Amino Transferase 26 5 - 31 U/L [facility] Alanine Aminotransferase 28 0 - 31 U/L [facility] Total Protein 7.6 6.5 - 8.0 g/dL [facility] Albumin Level 4.0 3.5 - 5.0 g/dL [facility] Alkaline Phosphatase 146(H) 39 - 117 U/L [facility] Blood Venous blood specimen / Unknown 10/14/2025 10:18 AM EST 10/14/2025 10:18 AM EST us Baldo Benitez MD LAB BLOOD ORDERABLES Final Resul t [facility] [address] [place] [phone] documented in this encounter Visit Diagnoses Diagnosis Septic shock due to urinary tract infection (HCC)- Primary Acute kidney injury Edema of right foot Acute post-traumatic headache, not intractable documented in [...] 10/01/2025 Patient has chronic kidney disease 10/01/2025 Weekly blood pressure task 10/05/2025 Weekly blood pressure task 10/05/2025 Patient has chronic kidney disease 10/05/2025 Patient has chronic kidney disease 10/05/2025 Weekly blood pressure task 10/12/2025 Weekly blood pressure task 10/12/2025 Patient has chronic kidney disease 10/12/2025 Patient has chronic kidney disease 10/12/2025 Weekly blood pressure task 10/12/2025 Weekly blood pressure task 10/12/2025 Patient has chronic kidney disease 10/12/2025 Patient has chronic kidney disease 10/12/2025 Weekly blood pressure task 10/14/2025 Weekly blood pressure task 10/14/2025 Patient has chronic kidney disease 10/14/2025 Patient has chronic kidney disease 10/14/2025 Weekly blood pressure task 10/14/2025 Weekly blood pressure task 10/14/2025 Patient has chronic kidney disease 10/14/2025 Patient has chronic kidney disease 10/14/2025 Weekly blood pressure task 10/14/2025 Weekly blood pressure task 10/14/2025 Patient has chronic kidney disease 10/14/2025 Patient has chronic kidney disease 10/14/2025 Assessment Noted Time PHQ-9 Depression Total Score: 0 07/20/20 25 11:20 AM EDT documented as of this encounter Care Teams Lead Pastor Relationship Specialty Start Date End Date Linda Murphy DO [address] [place] [phone] PCP - General Family Medicine 11/24/12 documented as of this encounter
[2025-10-14 10:20] LABS: MANUAL DIFF FLAG NO
[2025-10-14 10:49] LABS: Hematocrit 30.0 % (37.0-47.0); Hemoglobin 9.4 g/dl (12.0-16.0); Imm Gran Abs Auto 0.51 X10*3/uL (0.00-0.03); Imm Gran Pct Auto 2.5 % (0.0-0.4); Lymphocytes Absolute Auto 2.7 X10*3/uL (1.2-4.9); Mean Corpuscular HGB Conc 31.3 g/dl (31.0-35.0); Mean Corpuscular Hemoglobin 25.9 pg (27.0-33.0); Mean Corpuscular Volume 82.6 fL (80.0-98.0); NRBC Abs Auto 0.000 X10*3/uL (0.0-0.012); NRBC Pct Auto 0.0 /100WBC (0.0-0.2); Platelet Count 625 X10*3/uL (160-400); Red Blood Count 3.63 X10*6/uL (4.20-5.50); White Blood Count 20.4 X10*3/uL (4.8-10.8)
[2025-10-14 11:46] LABS: Alanine Aminotransferase 28 U/L (0-31); Albumin Level 4.0 g/dL (3.5-5.0); Alkaline Phosphatase 146 U/L (39-117); Anion Gap 14 (12-20); Aspartate Amino Transferase 26 U/L (5-31); Blood Urea Nitrogen 9 mg/dL (9-16); Calcium 9.3 mg/dL (8.4-10.2); Carbon Dioxide 29 mmol/L (22-29); Chloride 104 mmol/L (96-108); Estimated Glomerular Filt Rate 43; Potassium 3.7 mmol/L (3.3-5.1); Sodium 143 mmol/L (135-145); Total Protein 7.6 g/dL (6.5-8.0)
--- OUTSIDE RECORDS SUMMARY | 2025-10-14 12:01 | XMS_ITS | Encounter Summary ---
Author Organization [employer] Address [address] [facility] [address] 7t [place] [address] Care Team Providers Care Shared Services Manager Name Role Phone Linda Murphy DO Primary Care Provider [phone] Encounter Details Date Type Department Care Team ([facility] Contact Info) Description 08/11/2025 Orders Only [facility] MEDICINE [address] [place] [address] Linda Murphy DO 230 [place] [address] Social History Tobacco Use Types Packs/Day Years [...] Description 10/18/2025 11:45 AM EST Office Visit [address] [address] Linda Murphy DO [address] [place] [address] 10/26/2025 9:15 AM EST Office Visit [address] [address] Linda Murphy DO [address] [place] [address] documented as of this encounter Goals Goal [...] documented as of this encounter Care Teams Shared Services Manager Relationship Specialty Start Date End Date Linda Murphy DO [address] [place] [address] PCP - General Family Medicine 11/24/12 documented as of this encounter
--- OUTSIDE RECORDS SUMMARY | 2025-10-14 12:01 | XMS_ITS | Encounter Summary ---
Author Organization [employer] Address 75 [facility] 7t [place] [address] Care Team Providers Care Resistor Coater Name Role Phone Linda Murphy DO Primary Care Provider [phone] DelNeri zavala PharmD Unavailable Unavail able Antionette Murphy PharmD Unavailable [phone] Reason for Visit * Reason Onset Date Comments Letter for School/Work 03/07/2023 Encounter Details Date Type Department Care Team ([facility] st Contact Info) Description 03/07/[address] [facility] MEDICINE 230 [place] [address] Linda Murphy DO 230 [place] [address] Letter for School/Work Social History Tobacco Use [...] mailed due to COVID Please contact at [phone] documented in this encounter Plan of Treatment Upcoming Encounters Date Type Department Care Team (Late st Contact Info) Description 10/18/2025 11:45 AM EST Office Visit [address] [address] Linda Murphy DO 230 [place] [address] 10/26/2025 9:15 AM EST Office Visit [address] [address] Linda Murphy DO 230 [place] [address] documented as of this encounter Goals Goal [...] documented as of this encounter Care Teams Resistor Coater Relationship Specialty Start Date End Date Linda Murphy DO [address] [place] [address] PCP - General Family Medicine 11/24/12 Neri Yang, PharmD [address] [place] [address] Pharmacist Internal Medicine 11/23/22 10/17/23 Antionette Murphy PharmD [address] [place] [address] Pharmacist Internal Medicine 07/15/24 02/25/25 documented as of this encounter
--- OUTSIDE RECORDS SUMMARY | 2025-10-14 12:01 | XMS_ITS | Encounter Summary ---
Author Organization [employer] Address 75 [facility] 7t [place] [address] Care Team Providers Care Senior Stack Engineer Name Role Phone Linda Murphy DO Primary Care Provider [phone] Dellogla Neri PharmD Unavailable Unavail able Antionette Murphy PharmD Unavailable [phone] Reason for Visit * Reason Comments Med Refill Encounter Details Date Type Department Care Team (Late st Contact Info) Description 04/10/2023 Refill [facility] [address] [place] [address] Linda Murphy DO 230 [facility] [place] [address] Social History Tobacco Use Types Packs/Day Years [...] Department Care Team (Late Contact Info) Description 10/18/2025 11:45 AM EST Office Visit [facility] [place] [address] Linda Murphy DO [address] [place] [address] 10/26/2025 9:15 AM EST Office Visit [facility] [place] [address] Linda Murphy DO [address] [place] [address] documented as of this encounter Goals Goal [...] as of this encounter Care Teams Senior Stack Engineer Relationship Specialty Start Date End Date Linda Murphy DO [facility] [address] PCP - General Family Medicine 11/24/12 Neri Yang, PharmD [facility] [place] [address] Pharmacist Internal Medicine 11/23/22 10/17/23 Antionette Murphy PharmD [facility] [place] [address] Pharmacist Internal Medicine 07/15/24 02/25/25 documented as of this encounter
--- OUTSIDE RECORDS SUMMARY | 2025-10-14 12:01 | XMS_ITS | Encounter Summary ---
Author Organization [employer] Address [address] [facility] [address] 7t [place] [address] Care Team Providers Care Data Deliverables Manager Name Role Phone Katherine Linda Primary Care Provider [phone] Encounter Details Date Type Department Care Team (Latest Contact Info) Description 10/14/2025 Results Follow-Up [facility] [address] [place] [address] Baldo Benitez MD 230 [place] [address] CBC auto differential, Comprehensive Metabolic Panel Social History Tobacco Use Types Packs/Day Years [...] Description 10/18/2025 11:45 AM EST Office Visit [address] [address] Linda Murphy DO [address] [place] [address] 10/26/2025 9:15 AM EST Office Visit [address] [address] Linda Murphy DO [address] [place] [address] documented as of this encounter Goals Goal [...] Plan Weekly blood pressure task No Colon Alvino Mona Weekly blood pressure task Care Plan Weekly blood pressure task No Colon De Oliveira Mona Patient has chronic kidney disease Care Plan Patient has chronic kidney disease No Colon De Oliveira Mona Patient has chronic kidney disease Care Plan Patient has chronic kidney disease No Colon De Oliveira Mona Weekly blood pressure task Care Plan Weekly blood pressure task No Ivan Barlow Weekly blood pressure task Care Plan Weekly blood pressure task No Ivan Barlow Patient has chronic kidney disease Care Plan Patient has chronic kidney disease No BarlowPatricia viverosys Patient has chronic kidney disease Care Plan Patient has chronic kidney disease No Barlow, Lorenys Weekly blood pressure task Care Plan Weekly blood pressure task No Jesus Wakefield [place], [place] Weekly blood pressure task Care Plan Weekly blood pressure task No Jesus Wakefield [place], [place] Patient has chronic kidney disease Care Plan Patient has chronic kidney disease No Jesus Wakefield [place], [place] Patient has chronic kidney disease Care Plan Patient has chronic kidney disease No Jesus Wakefield [place], [place] Weekly blood pressure task Care Plan [...] Benitez MD documented as of this encounter Visit Diagnoses [...] as of this encounter Care Teams Data Deliverables Manager Relationship Specialty Start Date End Date Linda Murphy DO 230 [place] [address] PCP - General Family Medicine 11/24/12 documented as of this encounter
--- OUTSIDE RECORDS SUMMARY | 2025-10-14 12:01 | XMS_ITS | Encounter Summary ---
Author Organization [employer] Address 75 [facility] 7t [place] [address] Care Team Providers Care Tile Layer Drainage Name Role Phone Linda Murphy DO Primary Care Provider [phone] Antionette Murphy PharmD Unavailable [phone] Reason for Visit * Reason Comments Med Refill Encounter Details Date Type Department Care Team ([facility] st Contact Info) Description 07/03/2024 Refill [facility] MEDICINE 230 [place] [address] Linda Murphy DO 230 [place] [address] Tobacco dependence Social History Tobacco Use Types [...] Description 10/18/2025 11:45 AM EST Office Visit [address] [address] Linda Murphy DO [address] [place] [address] 10/26/2025 9:15 AM EST Office Visit [address] [address] Linda Murphy DO [address] [place] [address] documented as of this encounter Goals Goal Patient Goal Type Associated Problems Recent Progress Patient-Stated? Author Hemoglobin A1c < 7 Result Component 8.7(10/01/2025 9:13 AM EST) No Neri Yang, EricD documented as of this encounter Visit Diagnoses Diagnosis Tobacco dependence Tobacco use disorder documented in this encounter Additional Health Concerns Assessment Noted Time PHQ-9 Depression Total Score: 0 02/27/20 23 11:42 AM EDT documented as of this encounter Care Teams Tile Layer Drainage Relationship Specialty Start Date End Date Linda Murphy DO [address] [place] [address] PCP - General Family Medicine 11/24/12 Antionette Murphy, PharmD 230 [place] [address] Pharmacist Internal Medicine 07/15/24 02/25/25 documented as of this encounter
--- OUTSIDE RECORDS SUMMARY | 2025-10-14 12:01 | XMS_ITS | Encounter Summary ---
Author Organization [employer] Address [address] [facility] [address] 7t [place] [address] Care Team Providers Care Complaint Clerk Name Role Phone Linda Murphy DO Primary Care Provider [phone] Encounter Details Date Type Department Care Team ([facility] st Contact Info) Description 10/14/2025 Results Follow-Up [facility] [address] [place] [address] Baldo Benitez MD 230 [place] [address] US VENOUS DUPLEX LE RT Social History Tobacco Use Types Packs/Day Years [...] Description 10/18/2025 11:45 AM EST Office Visit [address] [address] Linda Murphy DO [address] [place] [address] 10/26/2025 9:15 AM EST Office Visit [address] [address] Linda Murphy DO [address] [place] [address] documented as of this encounter Goals Goal [...] has chronic kidney disease No Janette Ramires [place] Weekly blood pressure task Care Plan Weekly [...] pressure task No Colon De Oliveira Mona Weekly blood [...] Weekly blood pressure task No Barlow, Lorenys Weekly blood pressure task Care Plan Weekly blood pressure task No BarlowIvan viveros Patient has chronic kidney disease Care Plan Patient has chronic kidney disease No Barlow, Lorenys Patient has chronic kidney disease Care Plan Patient has chronic kidney disease No Barlow Lorenys Weekly blood pressure task Care Plan Weekly blood pressure task No Jesus Wakefield [place], [place] Weekly blood pressure task Care Plan Weekly blood pressure task No Jesus Wakefield [place], [place] Patient has chronic kidney disease Care Plan Patient has chronic kidney disease No Jesus Wakefield [place], [place] Patient has chronic kidney disease Care Plan Patient has chronic kidney disease No Jesus Wakefield [place], [place] Weekly blood pressure task Care Plan [...] as of this encounter Care Teams Complaint Clerk Relationship Specialty Start Date End Date Linda Murphy DO 230 [place] [address] PCP - General Family Medicine 11/24/12 documented as of this encounter"
--- OUTSIDE RECORDS SUMMARY | 2025-10-14 12:01 | XMS_ITS | Encounter Summary ---
Author Organization [facility] Address [address] [facility] [address] [place] [address] Phone Care Team Providers Care Rolled Gold Plater Name Role Phone Linda Murphy DO Primary Care Provider Encounter Details Date Type Department Care Team (Late st Contact Info) Description 07/03/2024 Procedure [facility], Ct Scan - [address] [address] Social History Tobacco Use Types Packs/Day Years [...] 3:17 PM EDT Antonia Beaulieu RN * [place] Suicide Severity Rating Scale (Screener/Recent Self-Report) Question [...] on filedocumented in this encounter Care Teams Rolled Gold Plater Relationship Specialty Start Date End Date Linda Murphy DO [address] [place] [address] PCP - General Family Medicine 07/03/24 documented as of this encounter Additional Source Comments The information contained in this document represents components of the legal health record. It is not the complete legal health record.[facility]
--- OUTSIDE RECORDS SUMMARY | 2025-10-14 12:01 | XMS_ITS | Encounter Summary ---
Author Organization [employer] Address [address] [place] [address] 7t [place] [address] Care Team Providers Care State Superintendent Of Schools Name Role Phone Linad Murphy DO Primary Care Provider [phone] DelNeri zavala PharmD Unavailable Unavail able Antionette Murphy PharmD Unavailable [phone] Reason for Referral * Imaging (Routine) - Canceled Specialty Diagnoses / Procedures Referred By Contlauren t Referred To Contact Radiology Diagnoses Hilar mass Procedures CT Chest w/o Contrast Nora Astudillo FNP 230 [place] [address] Phone: tel: fax: [facility] [address] [place] [phone] Phone: tel: fax: Referral ID Status Reason Start Date Expiration Date V isits Requested Visits Authorized [id number] Canceled 10/11/2023 10/10/2024 1 1 Encounter Details Date Type Department Care Team (Late st Contact Info) Description 10/11/2023 Orders Only [facility] [address] [place] [address] Nora Astudillo FNP 230 [place] [address] Hilar mass (Primary Dx) Social History Tobacco [...] Description 10/18/2025 11:45 AM EST Office Visit [facility] [address] [place] [address] Linda Murphy DO 230 [place] [address] 10/26/2025 9:15 AM EST Office Visit [facility] [address] [place] [address] Linda Murphy DO 230 [place] [address] Scheduled Orders Name Type Priority Associated Diagnoses [...] documented as of this encounter Care Teams State Superintendent Of [employer] Relationship Specialty Start Date End Date Linda Murphy DO 230 [place] [address] PCP - General Family Medicine 11/24/12 Neri Yang, PharmD 230 [place] [address] Pharmacist Internal Medicine 11/23/22 10/17/23 Antionette Murphy PharmD 230 [place] [address] Pharmacist Internal Medicine 07/15/24 02/25/25 documented as of this encounter
--- OUTSIDE RECORDS SUMMARY | 2025-10-14 12:01 | XMS_ITS | Encounter Summary ---
Author Organization [employer] Address [address] [facility] [address] 7t [place] [address] Care Team Providers Care Piggery Worker Name Role Phone Linda Murphy DO Primary Care Provider [phone] Encounter Details Date Type Department Care Team ([facility] st Contact Info) Description 10/14/2025 Orders Only [facility] MEDICINE 230 [place] [address] Baldo Benitez MD 230 [place] [address] Social History Tobacco Use Types Packs/Day Years [...] Description 10/18/2025 11:45 AM EST Office Visit [address] [address] Linda Murphy DO [address] [place] [address] 10/26/2025 9:15 AM EST Office Visit [address] [address] Linda Murphy DO [address] [place] [address] documented as of this encounter Goals Goal Patient Goal Type Associated Problems Recent Progress Patient-Stated? Author Hemoglobin A1c < 7 Result Component 8.7( 9:13 AM EST) No Neri Yang, PharmD Help patients manage their type 2 diabetes Care Plan Help patients manage their type 2 diabetes Janette Michelle [place] Weekly blood pressure task Care Plan Weekly blood pressure task No Janette Rmaires [place] Help patients manage their type 2 [...] Plan Weekly blood pressure task No Colon Mona De Oliveira Weekly blood pressure task Care Plan Weekly [...] Plan Patient has chronic kidney disease No Ivan Barlow Patient has chronic kidney disease Care Plan Patient has chronic kidney disease No Gabby Barlowenanastacia Weekly blood pressure task Care Plan Weekly blood pressure task No Binta Pedrazao [place] Weekly blood pressure task Care Plan Weekly blood pressure task No Jesus [place]field [place] Patient has chronic kidney disease Care Plan Patient has chronic kidney disease No Jesus [place]field [place] Patient has chronic kidney disease Care Plan Patient has chronic kidney disease No Jesus Wakefield [place], [place] Weekly blood pressure task Care Plan [...] Procedure Name Priority Date/Time Associated Diagnosis Comments US VENOUS DUPLEX LE RT Routine 10/14/2025 10:37 AM EST documented in this encounter Results * US VENOUS DUPLEX LE RT (10/14/2025 10:37 AM EST) Anatomical Region Laterality Modality Abdomen Ultrasound 10/14/2025 10:3 7 AM EST Narrative 10/14/2025 11:13 AM EST [place] [address] Ultrasound Report Signed Patient: Tisha Ruiz MR#: [id number] 61 : 1970 Acct:[id number] Age/Sex: 55 / F ADM Date: 10/14/25 Loc: . Attending Dr: Baldo Benitez MD Ordering Physician: Baldo Benitez MD Date of Service: 10/14/25 Procedure(s): US venous duplex LE RT Accession Number(s): [id number] cc: Linda Murphy DO; Baldo Benitez MD Reason for Exam: FOOT EDEMA S/P PPROLONGED HOSPITALIZATION EXAMINATION: US TRIPLEX LOWER EXTREMITY, RIGHT CLINICAL INFORMATION: Right lower extremity swelling, prolonged hospitalization COMPARISON: None available. TECHNIQUE: Color-flow triplex imaging with spectral analysis and compression Doppler were performed on the right lower extremity. FINDINGS: Respiratory variation, normal compression and augmented flow are noted throughout the right lower extremity. The visualized common femoral vein, superficial femoral vein, profunda femoral vein, popliteal vein and midcalf posterior tibial venous segments show no evidence of deep venous thrombosis. The peroneal vein was not visualized. Edema results in a reticulated appearance of the subcutaneous soft tissues in the lower leg. US/US venous duplex LE RT IMPRESSION: No evidence of deep venous thrombosis involving the right lower extremity. Electronically signed by: Raulito Pillai MD 10/14/2025 11:11 AM EST RP Dictated By: Raulito Pillai MD Signed By: <Electronically signed by Raulito Pillai MD in OV> 10/14/25 1111 DD/ 1037 TD/TT: 10/14/25 1059 Supervisor Metal Cans: Procedure Note Donotuseinterpreter, Image - 10/14/2025 [place] [address] Ultrasound Report Signed Patient: Asmita Ruiz#: [id number] 61 : 1970Acct:[id number] Age/Sex: 55 / FADM Date: 10/14/25 Loc: .US Attending Dr: Baldo Benitez MD Ordering Physician: Baldo Benitez MD Date of Service: 10/14/25 Procedure(s): US venous duplex LE RT Accession Number(s): [id number] cc: Linda Murphy DO; Baldo Benitez MD Reason for Exam: FOOT EDEMA S/P PPROLONGED HOSPITALIZATION EXAMINATION: US TRIPLEX LOWER EXTREMITY, RIGHT CLINICAL INFORMATION: Right lower extremity swelling, prolonged hospitalization COMPARISON: None available. TECHNIQUE: Color-flow triplex imaging with spectral analysis and compression Doppler were performed on the right lower extremity. FINDINGS: Respiratory variation, normal compression and augmented flow are noted throughout the right lower extremity. The visualized common femoral vein, superficial femoral vein, profunda femoral vein, popliteal vein and midcalf posterior tibial venous segments show no evidence of deep venous thrombosis. The peroneal vein was not visualized. Edema results in a reticulated appearance of the subcutaneous soft tissues in the lower leg. US/US venous duplex LE RT IMPRESSION: No evidence of deep venous thrombosis involving the right lower extremity. Electronically signed by: Raulito Pillai MD 10/14/2025 11:11 AM EST RP Dictated By: Raulito Pillai MD Signed By: <Electronically signed by Raulito Pillai MD in OV> 10/14/25 1111 DD/ 1037 TD/TT: 10/14/25 1059 Supervisor [employer] Cans: us Baldo Benitez MD [facility] PROCEDURES Edited Result - Final documented in [...] documented as of this encounter Care Teams Piggery Worker Relationship Specialty Start Date End Date Linda Murphy DO [address] [place] [address] PCP - General Family Medicine 11/24/12 documented as of this encounter
--- OUTSIDE RECORDS SUMMARY | 2025-10-14 12:01 | XMS_ITS | Encounter Summary ---
Author Organization [email or web address] Address 75 [facility] 7t [place] [address] Care Team Providers Care Home Economist Consumer Service Name Role Phone Linda Murphy DO Primary Care Provider Dellogla Neri PharmD Unavailable Unavail able Antionette Murphy PharmD Unavailable [phone] Reason for Visit * Reason Comments Med Refill Encounter Details Date Type Department Care Team (Late st Contact Info) Description 04/05/[address] [facility] [address] [place] [address] Linda Murphy DO 230 [place] [address] Social History Tobacco Use Types Packs/Day Years [...] Description 10/18/2025 11:45 AM EST Office Visit [facility] [place] [address] [place] [address] 10/26/2025 9:15 AM EST Office Visit [facility] [place] [address] Linda Murphy DO [address] [place] [address] documented as of this encounter Goals Goal [...] as of this encounter Care Teams Home Economist Consumer Service Relationship Specialty Start Date End Date [place] [address] PCP - General Family Medicine 11/24/12 Neri Yang, Pharm[place] [address] Pharmacist Internal Medicine 11/23/22 10/17/23 Antionette Murphy [place] [address] Pharmacist Internal Medicine 07/15/24 02/25/25 documented as of this encounter
--- OUTSIDE RECORDS SUMMARY | 2025-10-14 12:01 | XMS_ITS | Encounter Summary ---
Author Organization [employer] Address [address] [facility] [address] 7t [place] [address] Care Team Providers Care Associate Pathologist Name Role Phone Linda Murphy DO Primary Care Provider [phone] Antionette Murphy PharmD Unavailable [phone] Reason for Visit * Reason Onset Date Comments Medication Question 11/13/2023 Encounter Details Date Type Department Care Team ([facility] st Contact Info) Description 11/13/2023 Telephone [facility] MEDICINE [address] [place] [address] Linda Murphy DO [address] [place] [address] Medication Question Social History Tobacco Use Types [...] 11/08 Physical appointment. Please contact pt at [phone] documented in this encounter Plan of Treatment Upcoming Encounters Date Type Department Care Team (Late st Contact Info) Description 10/18/2025 11:45 AM EST Office Visit [address] [address] Linda Murphy DO [address] [place] [address] 10/26/2025 9:15 AM EST Office Visit [facility] [address] [place] [address] Linda Murphy DO [address] [place] [address] documented as of this encounter Goals Goal [...] as of this encounter Care Teams Associate Pathologist Relationship Specialty Start Date End Date Linda Murphy DO [address] [place] [address] PCP - General Family Medicine 11/24/12 Antionette Murphy PharmD [address] [place] [address] Pharmacist Internal Medicine 07/15/24 02/25/25 documented as of this encounter
--- OUTSIDE RECORDS SUMMARY | 2025-10-14 12:01 | XMS_ITS | Clinical Summary ---
Author Organization [facility] Address [address] [address] Phone Care Team Providers Care General Farmer Name Role Phone Linda Murphy DO Primary [...] topic Medical Devices Not on file Insurance [facility] MEDICARE PART A & B [facility] ONE CARE MEDICARE REPLACEMENT [facility] B [facility] ONE CARE MEDICARE REPLACEMENT [place] [id number] [facility] & B [facility] ONE CARE MEDICARE REPLACEMENT [facility] MEDICARE PART A & B [facility] CARE MEDICARE REPLACEMENT [place] [address] MEDICARE PART A & B [facility] ONE CARE MEDICARE REPLACEMENT [facility] MEDICARE PART A & B [facility] ONE CARE MEDICARE REPLACEMENT Care Teams General Farmer Relationship Specialty Start Date End Date Linda Murphy DO [address] [place] [address] PCP - General Family Medicine 07/03/24 Additional Source Comments The information contained in this document represents components of the legal health record. It is not the complete legal health record.[facility]
--- OUTSIDE RECORDS SUMMARY | 2025-10-14 12:01 | XMS_ITS | Encounter Summary ---
Author Organization [employer] Address [address] [facility] [address] [place] [address] Care Team Providers Care Sash Maker Name Role Phone Linda Murphy DO Primary Care Provider [phone] Neri Yang PharmD Unavailable Unavail able Antionette Murphy PharmD Unavailable [phone] Reason for Visit * Reason Onset Date Comments Results 10/08/2023 Encounter Details Date Type Department Care Team ([facility] st Contact Info) Description 10/08/2023 Telephone [facility] [address] [place] [address] Linda Murphy DO [address] [place], [place] [phone] Results Social History Tobacco Use Types Packs/Day [...] yesterday 10/07/2023 but was transferred to the [facility]. documented in this encounter Plan of Treatment Upcoming Encounters Date Type Department Care Team (Late st Contact Info) Description 10/18/2025 11:45 AM EST Office Visit [address] [phone] Linda Murphy DO [address] [place] [phone] 10/26/2025 9:15 AM EST Office Visit [facility] [address] [place] [phone] Linda Murphy DO [address] [place] [phone] documented as of this encounter Goals Goal [...] documented as of this encounter Care Teams Sash Maker Relationship Specialty Start Date End Date Linda Murphy DO [address] [place] [phone] PCP - General Family Medicine 11/24/12 Neri Yang PharmD [address] [place] [phone] Pharmacist Internal Medicine 11/23/22 10/17/23 Antionette Murphy PharmD [address] [place] [address] Pharmacist Internal Medicine 07/15/24 02/25/25 documented as of this encounter
--- OUTSIDE RECORDS SUMMARY | 2025-10-14 12:02 | XMS_ITS | Clinical Summary ---
Author Organization [address] [facility] Address [address] [place] [address] Phone Care Team Providers Care Hadoop Architect Name Role Phone Linda Murphy DO Primary Care Provider [phone] Allergies No known active allergies Medications acetaminophen [...] Diagnosed Date Allergic rhinitis 12/22/2024 Bipolar disorder (CMS/[facility] V24, CMS/[facility] V28) 02/1 11/2024 DANIEL (obstructive sleep apnea) 12/22/2024 Hyperlipidemia 12/22/2024 Type 2 diabetes mellitus ([facility] V24, [facility] V 28) 12/22/2024 Fatty liver 12/22/2024 Status post thyroidectomy 12/22/2024 Hx of papillary thyroid carcinoma 12/22/2024 GERD (gastroesophageal reflux disease) Chronic low back pain 12/22/2024 Leukocytosis 12/22/2024 Toenail avulsion 12/22/2024 Plantar callus 12/22/2024 Onychomycosis 12/22/2024 Encounters Date Type Department Care Team Description 08/31/2025 10:15 AM EDT Office Visit Orthopedic Surgery [facility] [address] [phone] Gutierrez Ruiz DPM Controlled type 2 diabetes with neuropathy (CMS/[facility] V24, [facility] V28) (Primary Dx); Metatarsalgia of right [...] Orthopedic Surgery [facility] [address] [phone] Gutierrez Ruiz DPM [address] [address] Health Maintenance Due Date Last Done Comments [...] ID:ICO Type:Not on file Address: [address] [place] [address] Care Teams Hadoop Architect Relationship Specialty Start Date End Date Linda Murphy DO [address] [place], [place] PCP - General Internal Medicine 04/09/19
--- OUTSIDE RECORDS SUMMARY | 2025-10-14 12:02 | XMS_ITS | Clinical Summary ---
Author Organization [employer] Address [address] [place] [address] Care Team Providers Care Medical Office Representative Name Role Phone Linda Murphy DO [...] obstructive pulmonary disease, unspecified COPD type (CMS/HCC) ([facility]) INHALE 1 AMPULE USING A [...] obstructive pulmonary disease, unspecified COPD type (CMS/HCC) ([facility]) USE 1 CAPSULE FOR INHALATION [...] obstructive pulmonary disease, unspecified COPD type (CMS/HCC) ([facility]) INHALE 2 PUFFS BY MOUTH [...] at bedtime (pain). 150 g 3 Active Aspirin Low Dose 81 MG EC tabletIndications :Type 2 diabetes mellitus with other specified complication, unspecified whether oil heaterman insulin use ([facility]) TAKE 1 TABLET BY MOUTH AT BEDTIME 90 tablet 1 Active gabapentin (Neurontin) 600 MG tablet TAKE 1 TABLET BY MOUTH THREE TIMES DAILY 90 tablet Active Alcohol Swabs (Alcohol Prep) 70 % padsIndications:T ype 2 diabetes mellitus without complication, without long-term current use of insulin ([facility]) USE EVERY DAY UP TO TWICE DAILY 100 each Active TRUEplus Lancets 33G miscIndications:T ype 2 diabetes mellitus without complication, without long-term current use of insulin ([facility]) USE TO TEST BLOOD SUGAR UP TO TWICE DAILY 100 each Active glucose blood (FREESTYLE LITE) test stripIndications: Type 2 diabetes mellitus without complication, without long-term current use of insulin ([facility]) USE TO TEST BLOOD SUGAR UP TO TWICE DAILY 100 strip Active ferrous sulfate 325 (65 Fe) MG EC tablet TAKE 1 TABLET BY MOUTH EVERY DAY. DO NOT BREAK, CRUSH, DISSOLVE OR CHEW 30 tablet Active metFORMIN XR (Glucophage-XR) 500 MG 24 hr tabletIndications :Type 2 diabetes mellitus without complication, without long-term current use of insulin ([facility]) Take 2 tablets (1,000 mg) by mouth with breakfast and with evening meal. Do not crush, chew, or split. 360 tablet Active Blood Glucose Monitoring Suppl (FreeStyle Lite) deviceIndications :Type 2 diabetes mellitus without complication, without long-term current use of insulin ([facility]) Inject 1 each under the skin 2 times daily. Use to test blood sugar twice daily, as directed 1 each 11/05/2 025 Active atorvastatin (Lipitor) 40 MG tablet [...] EVENING BEFORE MEALS 120 tablet 5 Active acetaminophen (Tylenol 8 Hour) 650 MG ER tabletIndications :Edema of right foot Take 1 tablet (650 mg) by mouth every 8 (eight) hours if needed for mild pain or moderate pain for up to 10 days. 30 tablet 025 2024 Active Blood Glucose Monitoring [...] AND EVENING BEFORE MEALS 120 tablet 5 025 2024 Discontinued semaglutide (Rybelsus) 7 MG tabletIndications :Type 2 diabetes mellitus without complications (HCC) TAKE 1 TABLET BY MOUTH EVERY MORNING 30 MINUTES BEFORE A MEAL 30 tablet 5 025 2024 Discontinued acetaminophen (Tylenol 8 Hour) 650 MG ER tabletIndications :Acute post-traumatic headache, not intractable TAKE 1 TABLET BY MOUTH EVERY 8 HOURS NEEDED FOR PAIN OR FEVER 60 tablet 3 025 2024 Discontinued(R eorder (will not trigger notification to Pharmacy)) phenazopyridine (Pyridium) 100 MG tablet Take 1 tablet (100 mg) by mouth if needed in the morning, at noon, and at bedtime for bladder spasms for up to 3 days. 10 tablet 025 2024 ondansetron ODT (Zofran-ODT) 4 MG disintegrating [...] -f/u with pain mgmt prn -advised contact [facility] if sx change or worsen Leukocytosis [...] daily -cont regular BS monitoring -re-referred to [facility] pharmacist for eval -cont statin and low-dose lisinopril daily -Cr/GFR nml Aug 2023 with nml urine microalbumin SEP 2022 -s/p optho eval Nov 2022 at [facility], review next visit -s/p nml monofilament MAY 2022 Allergic rhinitis 11/03/2015 Chronic bipolar disorder ([facility]/HCC) 11/03/2015 Assessment & Plan (01/28/2024 2:44 PM [...] instrumentation of the toenail - refer to physics teacher - TB UTD Plantar callus 08/26/2024 01/27/2025 [...] Encounters Date Type Department Care Team Description 10/14/2025 8:40 AM EST Office Visit [facility] [address] [place] [phone] Septic shock due to urinary tract infection (HCC) (Primary Dx); Acute kidney injury; Edema of right foot; Acute post-traumatic headache, not intractable 10/14/2025 Results Follow-Up [facility] [address] [place] [phone] Baldo Benitez MD VENOUS DUPLEX LE RT 10/14/2025 Results Follow-Up [facility] [address] [address] Baldo Benitez MD CBC auto differential, Comprehensive Metabolic Panel 10/14/2025 Orders Only [address] [address] Baldo Benitez MD 10/14/2025 Travel 10/12/2025 Patient Outreach [address] [address] Linda Murphy DO Transition Of Care (Tcm) (HDF- scheduled) 10/12/[address] [address] Linda Murphy DO Hospital Follow-up 10/04/2025 Results Follow-Up [address] [address] Asuncion Bailey MD CBC auto differential, Lactic Acid, Comprehensive Metabolic Panel, Additional followed-up results: 5 10/01/2025 9:00 AM EST Office Visit [address] [address] Linda Murphy DO Pyelonephritis (Primary Dx); Type 2 diabetes mellitus without complication, without long-term current use of insulin ([facility]) 10/01/2025 Orders Only GENERIC EXTERNAL DATA DEPARTMENT Provider, Generic External Data 10/01/2025 Travel 09/29/2025 Orders Only [address] [address] Asuncion Bailey MD 09/28/[address] [address] Linda Murphy DO Chart Prep 09/26/[address] [address] Linda Murphy DO Type 2 diabetes mellitus without complications ([facility]) 09/20/2025 11:30 AM EST Office Visit [address] [address] Asuncion Bailey MD Pyelonephritis (Primary Dx); Nausea and vomiting, unspecified vomiting type; Leukocytosis, unspecified type; Multinodular goiter; Non-small cell cancer of left lung (CMS/HCC) (HCC) 09/20/2025 Travel 09/17/[address] [address] Linda Murphy DO Prior Authorization ([facility] PA: Asmanex HFA 100 MCG) 09/17/[address] [phone] Linda Murphy DO Prior Authorization ([facility] PA: Spiriva HandiHaler) 09/16/2025 Orders Only GENERIC EXTERNAL DATA DEPARTMENT Provider, Generic External Data 09/15/[address] [address] Yaima Marquez RN Error (VOID this visit) 09/15/2025 Orders Only GENERIC EXTERNAL DATA DEPARTMENT Provider, Generic External Data 09/02/2025 Refill [facility] [address] [place] [address] Linda Murphy, Type 2 diabetes mellitus without complication, without long-term current use of insulin (HCC) 08/30/2025 Refill [facility] [address] [place] [address] Linda Murphy DO Type 2 diabetes mellitus without complication, without long-term current use of insulin ([facility]) 08/18/2025 Telephone [facility] [address] [place] [phone] No Lopez, RN [employer] TRAFF[employer] IN[employer] RV today; Pt does not want to take Tramadol anymore 08/11/2025 Orders Only [facility] [address] [place] [phone] Linda Murphy, 08/09/2025 Refill [facility] [address] [place] [phone] Linda Murphy, 08/06/2025 Refill [facility] [address] [place] [phone] Linda Murphy, 08/04/2025 Refill [facility] [address] [place] [address] Linda Murphy DO Type 2 diabetes mellitus with other specified complication, unspecified whether oil heaterman insulin use ([facility]) 08/03/2025 Telephone [facility] [address] [place] [phone] No Lopez RN cancelled chronic group and AIR TRAFFIC INSTRUCTOR appts multiple times 07/29/2025 Telephone [facility] [address] [place] [phone] Linda Murphy DO telephone call; Reschedule [employer] TRAFFIC INSTRUCTOR/Chronic pain group; Blood Sugar Problem 07/28/2025 Telephone [facility] [address] [place] [phone] No Lopez, KRYSTYNA CORTES AIR TRAFFIC INSTRUCTOR RV today 07/27/2025 Refill [facility] [address] [place], [place] [phone] Linda Murphy DO Acute post-traumatic headache, not intractable 07/20/2025 11:15 AM EDT Office Visit [facility] [address] [place] [address] Linda Murphy DO Type 2 diabetes mellitus without complication, without long-term current use of insulin ([facility]) (Primary Dx); Other hyperlipidemia; Fatty liver; Chronic bipolar disorder (CMS/HCC); Chronic obstructive pulmonary disease, unspecified COPD type (CMS/HCC); Leukocytosis, unspecified type; Chronic gastroesophageal reflux disease; Chronic bilateral low back pain without sciatica; Right thigh pain; Non-small cell cancer of left lung ([facility]); S/P lobectomy of lung; History of papillary thyroid carcinoma; Anemia, unspecified type; Easy bruising; Healthcare maintenance; Dietary counseling; Exercise counseling; Encounter for screening mammogram for malignant neoplasm of breast 07/20/2025 Travel 07/19/2025 Refill [facility] [address] [place], [place] [phone] Linda Murphy DO Chronic bilateral low back pain without sciatica 07/16/2025 Telephone [facility] [address] [place] [address] Linda Murphy DO Chart Prep 07/15/2025 Refill [facility] [address] [place] [address] Linda Murphy DO from Last 3 Months Immunizations Immunization Administration [...] (220 lb) 10/14/2025 8:48 AM EST Height 170.2 cm (5' 7 ) 10/01/2025 9:07 AM EST Body Mass Index 34.46 10/01/2025 9:07 AM EST Plan of Treatment Upcoming Encounters Date Type Department Care Team (Late st Contact Info) Description 10/18/2025 11:45 AM EST Office Visit [address] [address] Linda Murphy DO [address] [place] [phone] 10/26/2025 9:15 AM EST Office Visit [address] [address] Linda Murphy DO [address] [place] [phone] Health Maintenance Due Date Last Done Comments [...] Screening 07/20/2026 07/20/2025, 07/20/20 25 Tobacco Screening 10/14/2026 10/14/2025 HPV/Cotest 05/21/2027 05/21/2022, 0711/2021, 02/15/2022 DTaP/Tdap/Td Vaccines (3 - Td or [...] Care Plan [facility] [place] Weekly blood pressure task Care Plan Weekly blood pressure task No [place] Patient has chronic kidney disease Care Plan Patient has chronic kidney disease No [place] Patient has chronic kidney disease Care Plan Patient has chronic kidney disease [facility] [place] [place] Weekly blood pressure task Care Plan [...] chronic kidney disease No Baldo Benitez MD Procedures Procedure Name Priority Date/Time Associated Diagnosis Comments US VENOUS DUPLEX LE RT Routine 10/14/2025 10:37 AM EST CBC WITH AUTO DIFFERENTIAL Routine 10/14/2025 10:18 AM EST Septic shock due to urinary tract infection (HCC) COMPREHENSIVE METABOLIC PANEL Routine 10/14/2025 10:18 AM EST Acute kidney injury CT ABDOMEN PELVIS W CONTRAST Routine 10/08/2025 1:[address] DRAIN PERITONEUM Routine 10/04/2025 1 :04 PM EST XR CHEST 1 VIEW Routine 10/03/2025 7:10 PM EST MR ABDOMEN W AND WO CONTRAST Routine 10/03/2025 6:45 PM EST MR PELVIS W AND WO CONTRAST Routine 10/03/2025 6:42 PM EST US PELVIS TRANSVAGINAL Routine 10/02/2025 11:15 AM EST US PELVIS TRANSVAGINAL Routine 10/01/2025 8:28 PM EST XR CHEST 1 VIEW Routine 10/01/2025 2:03 PM EST URINALYSIS, COMPLETE, WITH REFLEX TO CULTURE Routine 10/01/2025 1:[address] ABDOMEN PELVIS WO CONTRAST Routine 10/01/2025 12:07 PM EST LIPASE Routine 10/01/2025 10:48 AM EST BETA-HYDROXYBUTYRATE Routine 10/01/2025 10:48 AM EST COMPLETE BLOOD COUNT MAN DIF Routine 10/01/2025 [...] SLIDE REVIEW Routine 09/29/2025 8:38 AM EST ALKALINE PHOSPHATASE, ISOENZYMES Routine 09/29/2025 8:38 AM EST Nausea and vomiting, unspecified vomiting type LIPASE Routine 09/29/2025 8:38 AM EST Nausea and vomiting, unspecified vomiting type AMYLASE Routine 09/29/2025 8:38 AM EST Nausea and vomiting, unspecified vomiting type TSH W/REFLEX TO FT4 Routine 09/29/2025 8:38 AM EST Multinodular goiter CBC WITH AUTO [...] Recently Relevant to Health Maintenance Results * US VENOUS DUPLEX LE RT (10/14/2025 10:37 AM EST) Anatomical Region Laterality Modality Abdomen Ultrasound 10/14/2025 10:3 7 AM EST Narrative 10/14/2025 11:13 AM EST [address] [address] Ultrasound Report Signed Patient: Tisha Ruiz MR#: [id number] 61 : 1970 Acct:[id number] Age/Sex: 55 / F ADM Date: 10/14/25 Loc: .[place] Attending Dr: Baldo Benitez MD Ordering Physician: Baldo Benitez MD Date of Service: 10/14/25 Procedure(s): US venous duplex LE RT Accession Number(s): [id number] cc: Linda Murphy DO; Baldo Benitez MD [...] Raulito Pillai MD 10/14/2025 11:11 AM EST Dictated By: Raulito Pillai MD Signed By: <Electronically signed by Raulito Pillai MD in OV> 10/14/25 1111 DD/ 1037 TD/TT: 10/14/25 1059 Ms Access Database Developer: Procedure Note Donotuseinterpreter, Image - 10/14/2025 [place] [address] Ultrasound Report Signed Patient: Aaynna RuiznMR#: [id number] 61 : 1970Acct:[id number] Age/Sex: 55 / FADM Date: 10/14/25 Loc: .[place] Attending Dr: Baldo Benitez MD Ordering Physician: Baldo Benitez MD Date of Service: 10/14/25 Procedure(s): US venous duplex LE RT Accession Number(s): [id number] cc: Linda Murphy DO; Baldo Benitez MD [...] Raulito Pillai MD 10/14/2025 11:11 AM EST Dictated By: Raulito Pillai MD Signed By: <Electronically signed by Raulito Pillai MD in OV> 10/14/25 1111 DD/ 1037 TD/TT: 10/14/25 1059 Ms Access Database Developer: us Baldo Benitez MD [facility] PROCEDURES Edited Result - Final * (ABNORMAL) CBC auto differential (10/14/2025 10:18 AM EST) Only the most recent of5 resultswithin the time period is included. White Blood Count 20.4(H) 4.8 - 10.8 X10*3/uL [facility] Red Blood Count 3.63(L) 4.20 - 5.50 X10*6/uL [facility] Hemoglobin 9.4(L) 12.0 - 16.0 g/dl [facility] Hematocrit 30.0(L) 37.0 - 47.0 % [facility] Mean Corpuscular Volume 82.6 80.0 - 98.0 fL [facility] Mean Corpuscular Hemoglobin 25.9(L) 27.0 - 33.0 pg [facility] Mean Corpuscular HGB Conc 31.3 31.0 - 35.0 g/dl [facility] Red Cell Distribution Width 15.9 11.0 - 16.0 % [facility] Platelet Count 625(H) 160 - 400 X10*3/uL [facility] Mean Platelet Volume 9.4 9.4 - 12.3 fL [facility] Neutrophils Percent Auto 77.4(H) 45 - 73 % [facility] Imm Gran Pct Auto 2.5(H) 0.0 - 0.4 % [facility] Lymphocytes Percent Auto 13.2(L) 20 - 40 % [facility] Monocytes Percent Auto 5.7 2 - 11 % [facility] Eosinophils Percent Auto 0.9 0 - 4 % [facility] Basophils Percent Auto 0.3 0 - 2 % [facility] NRBC Pct Auto 0.0 0.0 - 0.2 /100WBC [facility] Neutrophils Absolute Auto 15.8(H) 2.0 - 8.3 x10*3/uL [facility] Imm Gran Abs Auto 0.51(H) 0.00 - 0.03 X10*3/uL [facility] Lymphocytes Absolute Auto 2.7 1.2 - 4.9 X10*3/uL [facility] Monocytes Absolute Auto 1.2 0.1 - 1.2 X10*3/uL [facility] Eosinophils Absolute Auto 0.2 0.0 - 0.4 X10*3/uL [facility] Basophils Absolute Auto 0.1 0.0 - 0.2 X10*3/uL [facility] NRBC Abs Auto 0.000 0.0 - 0.012 X10*3/uL [facility] Blood Venous blood specimen / Unknown 10/14/2025 10:18 AM EST 10/14/2025 10:18 AM EST us Baldo Benitez MD LAB BLOOD ORDERABLES Final Resul t [facility] [address] [place] [address] [phone] * (ABNORMAL) Comprehensive Metabolic Panel (10/14/2025 10:18 AM EST) Only the most recent of3 resultswithin the time period is included. Sodium 143 135 - 145 mmol/L [facility] Potassium 3.7 3.3 - 5.1 mmol/L [facility] Chloride 104 96 - 108 mmol/L [facility] Carbon Dioxide 29 22 - 29 mmol/L [facility] Anion Gap 14 12 - 20 [facility] Urea Nitrogen (BUN) 9 9 - 16 mg/dL [facility] Creatinine, Serum 1.29 0.5 - 1.4 mg/dL [facility] Estimated Glomerular Filt Rate 43 [facility] Comment:Chronic Kidney Disea se: Estimated GFR < 60 mL/min/1.30x0Fxpojp Kidney Disease: Estimated GFR < 15 mL/min/1.73m2 Glucose 146(H) 60 - 115 mg/dL [facility] Calcium 9.3 8.4 - 10.2 mg/dL [facility] Bilirubin, Total 0.2 0.0 - 1.0 mg/dL [facility] Aspartate Amino Transferase 26 5 - 31 U/L [facility] Alanine Aminotransferase 28 0 - 31 U/L [facility] Total Protein 7.6 6.5 - 8.0 g/dL [facility] Albumin Level 4.0 3.5 - 5.0 g/dL [facility] Alkaline Phosphatase 146(H) 39 - 117 U/L [facility] Blood Venous blood specimen / Unknown 10/14/2025 10:18 AM EST 10/14/2025 10:18 AM EST us Baldo Benitez MD LAB BLOOD ORDERABLES Final Resul t [facility] [address] [place] [address] [phone] * CT Abdomen Pelvis w/ Contrast (10/08/2025 1:34 PM EST) Only the most recent of2 resultswithin the time period is included. Anatomical Region Laterality Modality Body, Pelvis, Abdomen Computed T omography 10/08/2025 1:34 PM EST Narrative 10/08/2025 2:05 PM EST [address] [address] [address] Scan Report Signed Patient: Tisha Ruiz MR#: [id number] 61 : 1970 Acct:[id number] Age/Sex: 55 / F ADM Date: 10/01/25 Loc: [facility] 484-[address]: Mindy Garay MD Ordering Physician: Mindy Garay MD Date of Service: 10/08/25 Procedure(s): CT abdomen pelvis w IV con Accession Number(s): [id number] cc: Mindy Garay MD; Linda Murphy DO Report Number: [id number]: Total DLP = 595.00 mGy-cm Reason for Exam: residual abscess EXAMINATION: CT ABDOMEN PELVIS WITH IV CONTRAST HISTORY: residual abscess COMPARISON: Comparison is made with the prior CT dated 10/01/2025, and MRI of the pelvis dated 10/03/2025, and drainage films dated 10/04/2025. TECHNIQUE: CT scan of the abdomen and pelvis was performed following administration of 85 mL Omnipaque 350 using standard departmental protocol. Coronal and sagittal reformatted images were generated and reviewed. Oral contrast material was not administered at the request of the referring physician. This CT exam was performed with one or more of the following dose reduction techniques: automated exposure control, adjustment of the mA and/or kV according to patient size, use of iterative reconstruction technique. DLP: 595 mGy-cm FINDINGS: LOWER CHEST: There is airspace opacity at the left lung base consistent with atelectasis or pneumonia. There is a small cystic pleural effusion. The visualized right lung base is clear. CARDIOVASCULATURE: The heart is normal in size. There is a small pericardial effusion. LIVER: The liver is normal in size and contour. No liver mass is identified. The hepatic and portal veins are patent. GALLBLADDER / BILE DUCTS: The gallbladder is surgically absent. There is no intra or extrahepatic biliary ductal dilatation. SPLEEN: The spleen is normal in size. No focal splenic lesion is identified. PANCREAS: The pancreas is unremarkable in appearance. ADRENAL GLANDS: Within normal limits. KIDNEYS/RETROPERITONEUM: There is moderate bilateral hydroureteronephrosis since of the pelvis. The ureters appear obstructed by the previously noted inflammatory process in the pelvis. No renal masses are identified. LYMPH NODES: There are enlarged para-aortic lymph nodes measuring up to 1.5 cm in diameter. VASCULATURE: The abdominal aorta is normal in caliber. MESENTERY/PERITONEUM: No free fluid. No masses. There is no free intraperitoneal gas. STOMACH: The stomach is unremarkable. SMALL BOWEL: The small bowel is normal in caliber. COLON: The colon is unremarkable. APPENDIX: Normal. URINARY BLADDER/PELVIC ORGANS: There is gas in the urinary bladder which may be related to prior Petty catheter placement. There is a drainage catheter in the pelvis. The catheter has retracted since its initial placement on 10/04/2025 with the pigtail loop now located to the left of the rectum. Again seen is a loculated fluid collection posterior to the uterus measuring approximately 3.1 x 2.6 x 5.7 cm. There is marked surrounding inflammation. Both ovaries are enlarged and demonstrates a multilocular appearance consistent with tubo-ovarian abscesses as noted on MRI. BONES / SOFT TISSUES: No suspicious bony or soft tissue abnormalities. CT/CT abdomen pelvis w IV con IMPRESSION: 1. The ovaries are enlarged and demonstrates a multilocular appearance consistent with tubo-ovarian abscesses as noted on MRI. The inflammatory process causes ureteral compression and moderate bilateral hydroureteronephrosis. 2. The previously placed pigtail catheter has retracted since placement, with the loop now to the left of the rectum. The previously noted fluid collection posterior to the uterus measures 3.1 x 2.6 x 5.7 cm in size. Electronically signed by: Dillon Botello MD 10/08/2025 02:02 PM EST Dictated By: Dillon Botello MD Signed By: <Electronically signed by Dillon Botello MD in OV> 10/08/25 1402 DD/ 1334 TD/TT: 10/08/25 1347 Ms Access Database Developer: Procedure Note Donotuseinterpreter, Image - 10/08/[address] [address] [address] Scan Report Signed Patient: Ayanna RuiznMR#: [id number] 61 : 1970Acct:[id number] Age/Sex: 55 / FADM Date: 10/01/25 Loc: [facility] 484-[address]: Mindy Garay MD Ordering Physician: Mindy Garay MD Date of Service: 10/08/25 Procedure(s): CT abdomen pelvis w IV con Accession Number(s): [id number] cc: Mindy Garay MD; Linda Murphy DO Report Number: [id number]: Total DLP = 595.00 mGy-cm Reason for Exam: residual abscess EXAMINATION: CT ABDOMEN PELVIS WITH IV CONTRAST HISTORY: residual abscess COMPARISON: Comparison is made with the prior CT dated 10/01/2025, and MRI of the pelvis dated 10/03/2025, and drainage films dated 10/04/2025. TECHNIQUE: CT scan of the abdomen and pelvis was performed following administration of 85 mL Omnipaque 350 using standard departmental protocol. Coronal and sagittal reformatted images were generated and reviewed. Oral contrast material was not administered at the request of the referring physician. This CT exam was performed with one or more of the following dose reduction techniques: automated exposure control, adjustment of the mA and/or kV according to patient size, use of iterative reconstruction technique. DLP: 595 mGy-cm FINDINGS: LOWER CHEST: There is airspace opacity at the left lung base consistent with atelectasis or pneumonia. There is a small cystic pleural effusion. The visualized right lung base is clear. CARDIOVASCULATURE: The heart is normal in size. There is a small pericardial effusion. LIVER: The liver is normal in size and contour. No liver mass is identified. The hepatic and portal veins are patent. GALLBLADDER / BILE DUCTS: The gallbladder is surgically absent. There is no intra or extrahepatic biliary ductal dilatation. SPLEEN: The spleen is normal in size. No focal splenic lesion is identified. PANCREAS: The pancreas is unremarkable in appearance. ADRENAL GLANDS: Within normal limits. KIDNEYS/RETROPERITONEUM: There is moderate bilateral hydroureteronephrosis since of the pelvis. The ureters appear obstructed by the previously noted inflammatory process in the pelvis. No renal masses are identified. LYMPH NODES: There are enlarged para-aortic lymph nodes measuring up to 1.5 cm in diameter. VASCULATURE: The abdominal aorta is normal in caliber. MESENTERY/PERITONEUM: No free fluid. No masses. There is no free intraperitoneal gas. STOMACH: The stomach is unremarkable. SMALL BOWEL: The small bowel is normal in caliber. COLON: The colon is unremarkable. APPENDIX: Normal. URINARY BLADDER/PELVIC ORGANS: There is gas in the urinary bladder which may be related to prior Petty catheter placement. There is a drainage catheter in the pelvis. The catheter has retracted since its initial placement on 10/04/2025 with the pigtail loop now located to the left of the rectum. Again seen is a loculated fluid collection posterior to the uterus measuring approximately 3.1 x 2.6 x 5.7 cm. There is marked surrounding inflammation. Both ovaries are enlarged and demonstrates a multilocular appearance consistent with tubo-ovarian abscesses as noted on MRI. BONES / SOFT TISSUES: No suspicious bony or soft tissue abnormalities. CT/CT abdomen pelvis w IV con IMPRESSION: 1. The ovaries are enlarged and demonstrates a multilocular appearance consistent with tubo-ovarian abscesses as noted on MRI. The inflammatory process causes ureteral compression and moderate bilateral hydroureteronephrosis. 2. The previously placed pigtail catheter has retracted since placement, with the loop now to the left of the rectum. The previously noted fluid collection posterior to the uterus measures 3.1 x 2.6 x 5.7 cm in size. Electronically signed by: Dillon Botello MD 10/08/2025 02:02 PM [facility] Dictated By: Dillon Botello MD Signed By: <Electronically signed by Dillon Botello MD in OV> 10/08/25 1402 DD/ 1334 TD/TT: 10/08/25 1347 Ms Access Database Developer: [facility] External Provider IMG CT PROCEDURES Final Result * CT drain peritoneum (10/04/2025 1:04 PM EST) Anatomical Region Laterality Modality Body Computed Tomogra phy 10/04/2025 1:04 PM EST Narrative 10/04/2025 5:10 PM EST [address] [address] [address] Scan Report Signed Patient: Tisha Ruiz MR#: [id number] 59 : 1970 Acct:[id number] Age/Sex: 55 / F ADM Date: 10/01/25 Loc: .[facility] 261-[address]: Emy Ro MD Ordering Physician: Rex Rutledge MD Date of Service: 10/04/25 Procedure(s): CT drain peritoneum Accession Number(s): [id number] cc: Linda Murphy DO; Rex Rutledge MD Report Number: [id number]: Total DLP = 215.00 mGy-cm Reason for Exam: PELVIC ABCESS PROCEDURE: CT-GUIDED DRAINAGE, PERITONEAL ABSCESS CLINICAL INFORMATION: PELVIC ABCESS COMPARISON: Previous CT of the abdomen and pelvis most recent October 01, 2025, pelvic ultrasound October 01 and 2024 and pelvic MRI October 03, 2025 TECHNIQUE: Procedure and risks and benefits including bleeding, infection, and injury to adjacent bowel or organs are discussed with the patient and informed consent was obtained. The patient was positioned in the left decubitus position. Limited axial images through the pelvis were performed. The right buttock was prepped and draped in the usual sterile fashion. The skin and soft tissues were anesthetized with 1% lidocaine plain. Using a Chiba needle, access to the fluid collection in the pelvis was obtained. Over an 018 wire, a 6 Malaysian dilator was positioned in the collection. Over an 035 guidewire, 6 Malaysian dilator was exchanged for an 8.5 Malaysian drainage catheter. Catheter was attached to external bag drainage. 110-120 mL of cloudy slightly purulent appearing yellow fluid was removed. Specimen was sent for Gram stain, culture and cytology. Patient received Versed 0.5 mg and fentanyl 25 mcg intravenously during the procedure. Conscious sedation was provided by registered nurse with continuous hemodynamic monitoring. Total sedation time was [address] examination was performed using dose optimization techniques as appropriate, variously including the following: *Automated exposure control *Adjustment of mA and/or kV according to patient size (this includes techniques or standardized protocols for targeted exams where dose is matched to indication/reason for exam; i.e. extremities or head) *Use of iterative reconstruction technique DLP 215 mGY/cm FINDINGS: There is a fluid collection in the pelvis. This measures 9.2 x 6.7 cm in dimension. There is surrounding fat stranding. The left adnexa is prominent. There is dilatation of the visualized right lower renal collecting system. There is a Petty catheter in the bladder. There are small retroperitoneal lymph nodes. Final images demonstrate satisfactory position of drainage catheter with interval decrease in pelvic fluid collection. CT/CT drain peritoneum IMPRESSION: CT-guided pelvic drainage. Electronically signed by: Naomy Alan MD 10/04/2025 05:07 PM [facility] Dictated By: Naomy Alan MD Signed By: <Electronically signed by Naomy Alan MD in OV> 10/04/25 1707 DD/ 1304 TD/TT: 10/04/25 1519 Ms Access Database Developer: [employer] Procedure Note Donotuseinterpreter, Image - 10/05/[address] [place] [address] [address] Scan Report Signed Patient: Ayanna RuiznMR#: [id number] 61 : 1970Acct:[id number] Age/Sex: 55 / FADM Date: 10/01/25 Loc: [facility] 261-[address]: Emy Ro MD Ordering Physician: Rex Rutledge MD Date of Service: 10/04/25 Procedure(s): CT drain peritoneum Accession Number(s): [id number] cc: Linda Murphy DO; Rex Rutledge MD Report Number: [id number]: Total DLP = 215.00 mGy-cm Reason for Exam: PELVIC ABCESS PROCEDURE: CT-GUIDED DRAINAGE, PERITONEAL ABSCESS CLINICAL INFORMATION: PELVIC ABCESS COMPARISON: Previous CT of the abdomen and pelvis most recent October 01, 2025, pelvic ultrasound October 01 and 2024 and pelvic MRI October 03, 2025 TECHNIQUE: Procedure and risks and benefits including bleeding, infection, and injury to adjacent bowel or organs are discussed with the patient and informed consent was obtained. The patient was positioned in the left decubitus position. Limited axial images through the pelvis were performed. The right buttock was prepped and draped in the usual sterile fashion. The skin and soft tissues were anesthetized with 1% lidocaine plain. Using a Chiba needle, access to the fluid collection in the pelvis was obtained. Over an 018 wire, a 6 Malaysian dilator was positioned in the collection. Over an 035 guidewire, 6 Malaysian dilator was exchanged for an 8.5 Malaysian drainage catheter. Catheter was attached to external bag drainage. 110-120 mL of cloudy slightly purulent appearing yellow fluid was removed. Specimen was sent for Gram stain, culture and cytology. Patient received Versed 0.5 mg and fentanyl 25 mcg intravenously during the procedure. Conscious sedation was provided by registered nurse with continuous hemodynamic monitoring. Total sedation time was [address] examination was performed using dose optimization techniques as appropriate, variously including the following: *Automated exposure control *Adjustment of mA and/or kV according to patient size (this includes techniques or standardized protocols for targeted exams where dose is matched to indication/reason for exam; i.e. extremities or head) *Use of iterative reconstruction technique DLP 215 mGY/cm FINDINGS: There is a fluid collection in the pelvis. This measures 9.2 x 6.7 cm in dimension. There is surrounding fat stranding. The left adnexa is prominent. There is dilatation of the visualized right lower renal collecting system. There is a Petty catheter in the bladder. There are small retroperitoneal lymph nodes. Final images demonstrate satisfactory position of drainage catheter with interval decrease in pelvic fluid collection. CT/CT drain peritoneum IMPRESSION: CT-guided pelvic drainage. Electronically signed by: Naomy Alan MD 10/04/2025 05:07 PM [facility] Dictated By: Naomy Alan MD Signed By: <Electronically signed by Naomy Alan MD in OV> 10/04/25 1707 DD/ 1304 TD/TT: 10/04/25 1773 Ms Access Database Developer: [employer] [facility] External Provider IMG CT PROCEDURES Final Result * XR Chest 1 View (10/03/2025 7:10 PM EST) Only the most recent of2 resultswithin the time period is included. Anatomical Region Laterality Modality Chest Radiographic Rosaura ging 10/03/2025 7:10 PM EST Narrative 10/03/2025 7:11 PM EST [address] [address] XRay Report Signed Patient: Tisha Ruiz MR#: [id number] 61 : 1970 Acct:[id number] Age/Sex: 55 / F ADM Date: 10/01/25 Loc: [facility] 261-[address]: Emy Ro MD Ordering Physician: Emy Ro MD Date of Service: 10/03/25 Procedure(s): XR chest 1V Accession Number(s): [id number] cc: Linda Murphy DO; Emy Ro MD Reason for Exam: NGT PLacement CLINICAL HISTORY: NGT PLacement 1 view chest x-ray Comparison: CR/DC/SR - XR CHEST 1 VIEW - 10/01/2025 02:03 PM EST Findings: NGT tip is within the gastric lumen. No consolidation or effusion. Heart size is normal. No acute fracture. IMPRESSION: 1. No acute findings. This document has been electronically signed by: Abdirahman Hogue MD on 10/03/2025 19:10:47 Dictated By: Abdirahman Hogue MD Signed By: <Electronically signed by Abdirahman Hogue MD in OV> 10/03/251910 DD/ 09 TD/TT: 10/03/251909 Ms Access Database Developer: Procedure Note Donotuseinterpreter, Image - 10/03/[address] [address] XRay Report Signed Patient: Ayanna RuiznMR#: [id number] 59 : 1970Acct:[id number] Age/Sex: 55 / FADM Date: 10/01/25 Loc: [facility] 261-[address]: Emy Ro MD Ordering Physician: Emy Ro MD Date of Service: 10/03/25 Procedure(s): XR chest 1V Accession Number(s): [id number] cc: Linda Murphy DO; Emy Ro MD Reason for Exam: NGT PLacement CLINICAL HISTORY: NGT PLacement 1 view chest x-ray Comparison: CR/DC/SR - XR CHEST 1 VIEW - 10/01/2025 02:03 PM EST Findings: NGT tip is within the gastric lumen. No consolidation or effusion. Heart size is normal. No acute fracture. IMPRESSION: 1. No acute findings. This document has been electronically signed by: Abdirahman Hogue MD on 10/03/2025 19:10:47 Dictated By: Abdirahman Hogue MD Signed By: <Electronically signed by Abdirahman Hogue MD in OV> 10/03/251910 DD/ 09 TD/TT: 10/03/251909 Ms Access Database Developer: [facility] External Provider IMG XR PROCEDURES Final Result * MR Abdomen w/ and w/o Contrast (10/03/2025 6:45 PM EST) Anatomical Region Laterality Modality Abdomen Magnetic Resonan ce 10/03/2025 6:45 PM EST Narrative 10/03/2025 6:47 PM EST [place] [address] Magnetic Resonance Report Signed Patient: Tisha Ruiz MR#: [id number] 59 : 1970 Acct:[id number] Age/Sex: 55 / F ADM Date: 10/01/25 Loc: .ICU 261-[address]: Emy Ro MD Ordering Physician: Emy Ro MD Date of Service: 10/03/25 Procedure(s): MR abdomen wo/w con Accession Number(s): [id number] cc: Linda Murphy DO; Emy Ro MD Reason for Exam: L Adnexal Mass, Ileus, Unable to Tolerate PO CLINICAL HISTORY: L Adnexal Mass, Ileus, Unable to Tolerate PO MR abdomen with and without gadolinium Comparison: MR - MR PELVIS WO/W CON - 10/03/25 16:31 EST US/SR - US PELVIC AND TRANSVAGINAL - 10/02/25 07:45 EST US - US PELVIC AND TRANSVAGINAL - 10/01/25 19:[address]/DC/SR - CT ABDOMEN PELVIS WITHOUT IV CONTRAST - 10/01/25 12:[address]/REG/SR - CT ABDOMEN PELVIS WITH IV CONTRAST - 09/16/25 11:32 EST Findings: Small loculated appearing left pleural effusion is present. Heart size is normal. Gallbladder is not seen. Liver, biliary tree, and pancreas are normal in appearance. Spleen and adrenals are normal in appearance. There is severe right and moderate left hydronephrosis as well as moderate bilateral ureteral dilatation. Visualized bowel loops and vasculature are normal in caliber. Multiple mildly prominent retroperitoneal lymph nodes are present. Adnexal and pouch of Loa abnormalities are partially visualized, which are discussed on the accompanying pelvic MRI report. Visualized osseous structures are normal in appearance. IMPRESSION: 1. Loculated left pleural effusion. Infection can not be excluded. 2. Zrbqf-xcizaop-nbbb-left hydronephrosis and ureteral dilatation. 3. Presumably reactive retroperitoneal lymph nodes. Continued follow up is recommended to exclude underlying malignancy. This document has been electronically signed by: Abdirahman Hogue MD on 10/03/2025 18:45:14 Dictated By: Abdirahman Hogue MD Signed By: <Electronically signed by Abdirahman Hogue MD in OV> 10/03/251845 DD/ 44 TD/TT: 10/03/251844 Ms Access Database Developer: Procedure Note Donotuseinterpreter, Image - 10/03/2025 [place] [address] Magnetic Resonance Report Signed Patient: Ayanna RuizVASilva#: [id number] 59 : 1970Acct:[id number] Age/Sex: 55 / FADM Date: 10/01/25 Loc: [facility]ICU 261-[address]: Emy Ro MD Ordering Physician: Emy Ro MD Date of Service: 10/03/25 Procedure(s): MR abdomen wo/w con Accession Number(s): [id number] cc: Linda Murphy Rachel MD Reason for Exam: L Adnexal Mass, Ileus, Unable to Tolerate PO CLINICAL HISTORY: L Adnexal Mass, Ileus, Unable to Tolerate PO MR abdomen with and without gadolinium Comparison: MR - MR PELVIS WO/W CON - 10/03/25 16:31 EST US/SR - US PELVIC AND TRANSVAGINAL - 10/02/25 07:45 EST US - US PELVIC AND TRANSVAGINAL - 10/01/25 19:[address]/DC/SR - CT ABDOMEN PELVIS WITHOUT IV CONTRAST - 10/01/25 12:[address]/REG/SR - CT ABDOMEN PELVIS WITH IV CONTRAST - 09/16/25 11:32 EST Findings: Small loculated appearing left pleural effusion is present. Heart size is normal. Gallbladder is not seen. Liver, biliary tree, and pancreas are normal in appearance. Spleen and adrenals are normal in appearance. There is severe right and moderate left hydronephrosis as well as moderate bilateral ureteral dilatation. Visualized bowel loops and vasculature are normal in caliber. Multiple mildly prominent retroperitoneal lymph nodes are present. Adnexal and pouch of Loa abnormalities are partially visualized, which are discussed on the accompanying pelvic MRI report. Visualized osseous structures are normal in appearance. IMPRESSION: 1. Loculated left pleural effusion. Infection can not be excluded. 2. Efbbk-wvwdxbf-bwok-left hydronephrosis and ureteral dilatation. 3. Presumably reactive retroperitoneal lymph nodes. Continued follow up is recommended to exclude underlying malignancy. This document has been electronically signed by: Abdirahman Hogue MD on 10/03/2025 18:45:14 Dictated By: Abdirahman Hogeu MD Signed By: <Electronically signed by Abdirahman Hogue MD in OV> 10/03/251845 DD/ 44 TD/TT: 10/03/251844 Ms Access Database Developer: [facility] External Provider IMG MRI PROCEDURES Final Result * MR Pelvis w/ and w/o Contrast (10/03/2025 6:42 PM EST) Anatomical Region Laterality Modality Body, Pelvis Magnetic Resonan ce 10/03/2025 6:42 PM EST Narrative 10/03/2025 6:44 PM EST [address] [address] Magnetic Resonance Report Signed Patient: Tisha Ruiz MR#: [id number] 59 : 1970 Acct:[id number] Age/Sex: 55 / F ADM Date: 10/01/25 Loc: .ICU 261-[address]: Emy Ro MD Ordering Physician: Emy Ro MD Date of Service: 10/03/25 Procedure(s): MR pelvis wo/w con Accession Number(s): [id number] cc: Linda Murphy DO; Emy Ro MD Reason for Exam: L Adnexal Mass and Ileus CLINICAL HISTORY: L Adnexal Mass and Ileus MRI of the pelvis with and without intravenous contrast. Comparison: US/SR - US PELVIC AND TRANSVAGINAL - 10/02/25 07:45 EST US - US PELVIC AND TRANSVAGINAL - 10/01/25 19:[address]/DC/SR - CT ABDOMEN PELVIS WITHOUT IV CONTRAST - 10/01/25 12:07 EST Findings: Multi locular bilateral adnexal peripherally enhancing high T2 intensity foci are present, measuring 85 mm oblique transverse on the left, and 15 mm transverse oblique on the right. The uterus is within normal limits. There is a peripherally enhancing high T2 intensity debris containing focus within the pouch of Angel measuring 110 mm anteroposterior. Moderate diffuse fat stranding throughout the pelvis is present. Petty catheter within the urinary bladder is present. Visualized bowel loops and vasculature are normal in caliber. There is moderate thickening of the rectum. There is severe right and moderate left hydronephrosis as well as moderate bilateral ureteral dilatation extending into the pelvis. Visualized osseous structures are normal in appearance. IMPRESSION: 1. Blfs-muvoyce-usim-right adnexal lesions as described above, most suggestive of tubo-ovarian abscesses. Continued follow up is recommended to exclude underlying neoplasm. 2. Probable abscess within the pouch of Angel, Associated with secondary thickening of the rectum. Follow-up endoscopy is recommended to exclude underlying rectal neoplasm. 3. Zboig-hnyrsrk-rgkb-left hydronephrosis secondary to distal ureteral compression. This document has been electronically signed by: Abdirahman Hogue MD on 10/03/2025 18:42:57 Dictated By: Abdirahman Hogue MD Signed By: <Electronically signed by Abdirahman Hogue MD in OV> 10/03/251842 DD/ 41 TD/TT: 10/03/251841 Ms Access Database Developer: Procedure Note Donotuseinterpreter, Image - 10/03/[address] [address] Magnetic Resonance Report Signed Patient: Asmita Ruiz#: [id number] 61 : 1970Acct:[id number] Age/Sex: 55 / FADM Date: 10/01/25 Loc: .ICU 261-[address]: Emy Ro MD Ordering Physician: Emy Ro MD Date of Service: 10/03/25 Procedure(s): MR pelvis wo/w con Accession Number(s): [id number] cc: Linda Murphy DO; Emy Ro MD Reason for Exam: L Adnexal Mass and Ileus CLINICAL HISTORY: L Adnexal Mass and Ileus MRI of the pelvis with and without intravenous contrast. Comparison: US/SR - US PELVIC AND TRANSVAGINAL - 10/02/25 07:45 EST US - US PELVIC AND TRANSVAGINAL - 10/01/25 19:[address]/DC/SR - CT ABDOMEN PELVIS WITHOUT IV CONTRAST - 10/01/25 12:07 EST Findings: Multi locular bilateral adnexal peripherally enhancing high T2 intensity foci are present, measuring 85 mm oblique transverse on the left, and 15 mm transverse oblique on the right. The uterus is within normal limits. There is a peripherally enhancing high T2 intensity debris containing focus within the pouch of Loa measuring 110 mm anteroposterior. Moderate diffuse fat stranding throughout the pelvis is present. Petty catheter within the urinary bladder is present. Visualized bowel loops and vasculature are normal in caliber. There is moderate thickening of the rectum. There is severe right and moderate left hydronephrosis as well as moderate bilateral ureteral dilatation extending into the pelvis. Visualized osseous structures are normal in appearance. IMPRESSION: 1. Arnh-mlklbzw-tmag-right adnexal lesions as described above, most suggestive of tubo-ovarian abscesses. Continued follow up is recommended to exclude underlying neoplasm. 2. Probable abscess within the pouch of Angel, Associated with secondary thickening of the rectum. Follow-up endoscopy is recommended to exclude underlying rectal neoplasm. 3. Nrfan-ojusuta-ghdj-left hydronephrosis secondary to distal ureteral compression. This document has been electronically signed by: Abdirahman Hogue MD on 10/03/2025 18:42:57 Dictated By: Abdirahman Hogue MD Signed By: <Electronically signed by Abdirahman Hogue MD in OV> 10/03/251842 DD/ 41 TD/TT: 10/03/251841 Ms Access Database Developer: [facility] External Provider IMG MRI PROCEDURES Final Result * US Pelvis Transvaginal (10/02/2025 11:15 AM EST) Only the most recent of2 resultswithin the time period is included. Anatomical Region Laterality Modality Pelvis Ultrasound 10/02/2025 11:1 5 AM EST Narrative 10/02/2025 11:16 AM EST [place] [address] Ultrasound Report Signed Patient: Tisha Ruiz MR#: [id number] 59 : 1970 Acct:[id number] Age/Sex: 55 / F ADM Date: 10/01/25 Loc: [facility] 261-[address]: Emy Ro MD Ordering Physician: Earline Luu NP Date of Service: 10/02/25 Procedure(s): US pelvic and transvaginal Accession Number(s): [id number] cc: Linda Murphy DO; Earline Luu NP Reason for Exam: abnormal uterine bleeding, L adnexal mass CLINICAL HISTORY: abnormal uterine bleeding, L adnexal mass US pelvis transvaginal Comparison: US - US PELVIC AND TRANSVAGINAL - 10/01/25 19:29 EST Findings: Transvaginal scanning performed. The uterus is 8.8 cm length. Normal myometrium. Endometrium 1 mm thickness. Right ovary 2.3 x 1.7 x 2.0 cm. Left ovary: Not visualized Normal color Doppler of the right ovary Unclear if there is complex free fluid in the cul-de-sac or if this reflects dilated fluid-filled bowel. IMPRESSION: Somewhat limited study. The left ovary is not visualized. The endometrium is thin at 1 mm. Unclear if there is complex free fluid in the cul-de-sac or this reflects dilated fluid-filled bowel. CT would better evaluate this This document has been electronically signed by: Magdiel Rodríguez MD on 10/02/2025 11:15:57 Dictated By: Magdiel Rodríguez MD Signed By: <Electronically signed by Magdiel Rodríguez MD in OV> 10/02/25 1116 DD/ 111 TD/TT: 10/02/25 111 Ms Access Database Developer: Procedure Note Donotuseinterpreter, Image - 10/02/2025 [place] [address] Ultrasound Report Signed Patient: Ayanna RuiznMR#: [id number] 61 : 1970Acct:[id number] Age/Sex: 55 / FADM Date: 10/01/25 Loc: [facility] 261-[address]: Emy Ro MD Ordering Physician: Earline Luu NP Date of Service: 10/02/25 Procedure(s): US pelvic and transvaginal Accession Number(s): [id number] cc: Linda Murphy DO; Earline Luu NP Reason for Exam: abnormal uterine bleeding, L adnexal mass CLINICAL HISTORY: abnormal uterine bleeding, L adnexal mass US pelvis transvaginal Comparison: US - US PELVIC AND TRANSVAGINAL - 10/01/25 19:29 EST Findings: Transvaginal scanning performed. The uterus is 8.8 cm length. Normal myometrium. Endometrium 1 mm thickness. Right ovary 2.3 x 1.7 x 2.0 cm. Left ovary: Not visualized Normal color Doppler of the right ovary Unclear if there is complex free fluid in the cul-de-sac or if this reflects dilated fluid-filled bowel. IMPRESSION: Somewhat limited study. The left ovary is not visualized. The endometrium is thin at 1 mm. Unclear if there is complex free fluid in the cul-de-sac or this reflects dilated fluid-filled bowel. CT would better evaluate this This document has been electronically signed by: Magdiel Rodríguez MD on 10/02/2025 11:15:57 Dictated By: Magdiel Rodríguez MD Signed By: <Electronically signed by Magdiel Rodríguez MD in OV> 10/02/25 1116 DD/ 1115 TD/TT: 10/02/25 111 Ms Access Database Developer: us [facility] External Provider IMG US PROCEDURES Edited Result - Final * (ABNORMAL) Urinalysis, Complete, with Reflex to Culture (10/01/2025 1:26 PM EST) Only the most recent of2 resultswithin the time period is included. Color Urine Yellow [facility] Appearance Urine Hazy [facility] PH 5.5 5.0 - 9.0 [facility] Glucose Urine UA Negative Negative mg/dL [facility] Urine Blood Negative Negative [facility] Specific [place] - Urine 1.015 1.005 - 1.025 [facility] Urine Protein Trace Neg-Trace mg/dL [facility] Urine Ketones Negative Negative mg/dL [facility] Nitrite Urine Negative Negative [facility] Leukocyte Esterase Urine Moderate (2+)(A) Negative [facility] RBC Urine 0-2 0 - 2 /HPF [facility] Urine WBC >50(A) 0 - 5 /HPF [facility] Urine Squamous Epithelial Cell 11-20 0 - 2 /HPF [facility] Urine Bacteria 4+ None Seen [facility] Hyaline Casts, Urine >20 0 - 2 /LPF [facility] 10/01/2025 1:26 PM EST 10/01/2025 1:28 PM EST Narrative [facility] - 10/01/2025 1:55 PM EST Urine, Clean Catch Generic External Data Provider LAB URINE ORDERAB LES Final Result [facility] [address] [place] [phone] * CT Abdomen Pelvis w/o Contrast (10/01/2025 12:07 PM EST) Anatomical Region Laterality Modality Body, Pelvis, Abdomen Computed T omography 10/01/2025 12:0 7 PM EST Narrative 10/01/2025 1:02 PM EST [address] [address] [address] Scan Report Signed Patient: Tisha Ruiz MR#: [id number] 61 : 1970 Acct:[id number] Age/Sex: 55 / F ADM Date: 10/01/25 Loc: HO.ED Attending Dr: Ordering Physician: Boris Franco Date of Service: 10/01/25 Procedure(s): CT abdomen pelvis wo IV con Accession Number(s): [id number] cc: Linda Murphy DO; Boris Franco Report Number: [id number]: Total DLP = 766.00 mGy-cm Reason for Exam: Lower abdominal pain EXAMINATION: CT ABDOMEN PELVIS WITHOUT IV CONTRAST HISTORY: Lower abdominal pain COMPARISON: Previous CT of the abdomen and pelvis most recently September 16, 2025 TECHNIQUE: CT scan of the abdomen and pelvis was performed without contrast using standard departmental protocol. Coronal and sagittal reformatted images were generated and reviewed. This CT exam was performed with one or more of the following dose reduction techniques: automated exposure control, adjustment of the mA and/or kV according to patient size, use of iterative reconstruction technique. DLP: 766 mGy-cm FINDINGS: LOWER CHEST: Complex probably loculated small left pleural effusion. Small pericardial effusion. Small cardiophrenic angle or anterior diaphragmatic lymph nodes on the right. These findings are similar to prior abdominal and pelvic CT. CARDIOVASCULATURE: The heart is normal in size. There is no pericardial effusion. LIVER: The liver is enlarged. Heterogeneous areas of peripheral decreased attenuation, question related to fatty infiltration. GALLBLADDER / BILE DUCTS: The gallbladder has been removed. There is no intra or extrahepatic biliary ductal dilatation. SPLEEN: The spleen is normal in size and has an unremarkable unenhanced appearance. Small splenule. PANCREAS: The pancreas has an unremarkable unenhanced appearance. ADRENAL GLANDS: Slight nodular thickening of the left adrenal gland similar to previous exams. No old right adrenal gland. KIDNEYS/RETROPERITONEUM: No renal calculi are identified. There is no hydronephrosis. No ureteral dilatation or ureteral stone appreciated. LYMPH NODES: There are prominent retroperitoneal lymph nodes in the abdomen and pelvis. These appear similar to recent exam. Largest lymph node is a lower abdominal precaval lymph node measuring 10 mm in short axis axial image 46 series 3 and left para-aortic lymph node measuring 10 mm in short axis axial image 41 series 3. There are smaller bilateral retroperitoneal lymph nodes in the pelvis and portocaval region. VASCULATURE: Not optimally assessed without IV contrast. The abdominal aorta is normal in caliber. MESENTERY/PERITONEUM: There is interval increase in fat stranding seen in the mesentery in the lower abdomen and pelvis. This appears greatest in the left pelvis adjacent to the left adnexa There is a new small amount of fluid in the pelvis. There is no free intraperitoneal gas. STOMACH: Normal SMALL and large BOWEL: Fluid-filled distended small and proximal large bowel increased from previous exam suggestive of increasing ileus. Cecum measures 8 cm. No transition zone to suggest mechanical obstruction. There is questionable wall thickening of the sigmoid colon. The appendix is normal appearing. URINARY BLADDER/PELVIC ORGANS: Well-distended bladder. No stone, mass or wall thickening. Increasing prominence of the left adnexa compared to recent exam for example measuring 6.3 x 6.8 cm axial image 64 series 3. Uterus and right adnexa appear unremarkable. BONES / SOFT TISSUES: Degenerative changes of the spine and hips. Postsurgical changes to the anterior abdominal wall. No hernia. CT/CT abdomen pelvis wo IV con IMPRESSION: Increased fat stranding and new small amount of fluid in the pelvis. This appears greatest in the left pelvis in the left adnexal region with increasing soft tissue prominence. Etiology uncertain. Questionable mild wall thickening of the sigmoid colon. Consider possible colon, left adnexal or left distal ureteral etiology. Recommend follow-up pelvic ultrasound and consider repeat CT with oral and IV contrast. Very distended bladder. Increasing ileus. Enlarged liver. Prominent retroperitoneal lymph nodes similar to recent September 16, 2025 exam. Cannot exclude malignant process/ lymphoproliferative disease. Electronically signed by: Naomy Alan MD 10/01/2025 12:59 PM EST Dictated By: Naomy Alan MD Signed By: <Electronically signed by Naomy Alan MD in OV> 10/01/25 1259 DD/ 1207 TD/TT: 10/01/25 1218 Ms Access Database Developer: SALVADOR Procedure Note Donotuseinterpreter, Image - 10/01/[address] [place] [address] [address] Scan Report Signed Patient: Asmita Ruiz#: [id number] 61 : 1970Acct:[id number] Age/Sex: 55 / FADM Date: 10/01/25 Loc: HO.ED Attending Dr: Ordering Physician: Boris Franco Date of Service: 10/01/25 Procedure(s): CT abdomen pelvis wo IV con Accession Number(s): [id number] cc: Linda Murphy DO; Boris Franco Report Number: [id number]: Total DLP = 766.00 mGy-cm Reason for Exam: Lower abdominal pain EXAMINATION: CT ABDOMEN PELVIS WITHOUT IV CONTRAST HISTORY: Lower abdominal pain COMPARISON: Previous CT of the abdomen and pelvis most recently September 16, 2025 TECHNIQUE: CT scan of the abdomen and pelvis was performed without contrast using standard departmental protocol. Coronal and sagittal reformatted images were generated and reviewed. This CT exam was performed with one or more of the following dose reduction techniques: automated exposure control, adjustment of the mA and/or kV according to patient size, use of iterative reconstruction technique. DLP: 766 mGy-cm FINDINGS: LOWER CHEST: Complex probably loculated small left pleural effusion. Small pericardial effusion. Small cardiophrenic angle or anterior diaphragmatic lymph nodes on the right. These findings are similar to prior abdominal and pelvic CT. CARDIOVASCULATURE: The heart is normal in size. There is no pericardial effusion. LIVER: The liver is enlarged. Heterogeneous areas of peripheral decreased attenuation, question related to fatty infiltration. GALLBLADDER / BILE DUCTS: The gallbladder has been removed. There is no intra or extrahepatic biliary ductal dilatation. SPLEEN: The spleen is normal in size and has an unremarkable unenhanced appearance. Small splenule. PANCREAS: The pancreas has an unremarkable unenhanced appearance. ADRENAL GLANDS: Slight nodular thickening of the left adrenal gland similar to previous exams. No old right adrenal gland. KIDNEYS/RETROPERITONEUM: No renal calculi are identified. There is no hydronephrosis. No ureteral dilatation or ureteral stone appreciated. LYMPH NODES: There are prominent retroperitoneal lymph nodes in the abdomen and pelvis. These appear similar to recent exam. Largest lymph node is a lower abdominal precaval lymph node measuring 10 mm in short axis axial image 46 series 3 and left para-aortic lymph node measuring 10 mm in short axis axial image 41 series 3. There are smaller bilateral retroperitoneal lymph nodes in the pelvis and portocaval region. VASCULATURE: Not optimally assessed without IV contrast. The abdominal aorta is normal in caliber. MESENTERY/PERITONEUM: There is interval increase in fat stranding seen in the mesentery in the lower abdomen and pelvis. This appears greatest in the left pelvis adjacent to the left adnexa There is a new small amount of fluid in the pelvis. There is no free intraperitoneal gas. STOMACH: Normal SMALL and large BOWEL: Fluid-filled distended small and proximal large bowel increased from previous exam suggestive of increasing ileus. Cecum measures 8 cm. No transition zone to suggest mechanical obstruction. There is questionable wall thickening of the sigmoid colon. The appendix is normal appearing. URINARY BLADDER/PELVIC ORGANS: Well-distended bladder. No stone, mass or wall thickening. Increasing prominence of the left adnexa compared to recent exam for example measuring 6.3 x 6.8 cm axial image 64 series 3. Uterus and right adnexa appear unremarkable. BONES / SOFT TISSUES: Degenerative changes of the spine and hips. Postsurgical changes to the anterior abdominal wall. No hernia. CT/CT abdomen pelvis wo IV con IMPRESSION: Increased fat stranding and new small amount of fluid in the pelvis. This appears greatest in the left pelvis in the left adnexal region with increasing soft tissue prominence. Etiology uncertain. Questionable mild wall thickening of the sigmoid colon. Consider possible colon, left adnexal or left distal ureteral etiology. Recommend follow-up pelvic ultrasound and consider repeat CT with oral and IV contrast. Very distended bladder. Increasing ileus. Enlarged liver. Prominent retroperitoneal lymph nodes similar to recent September 16, 2025 exam. Cannot exclude malignant process/ lymphoproliferative disease. Electronically signed by: Naomy Alan MD 10/01/2025 12:59 PM EST RP Dictated By: Naomy Alan MD Signed By: <Electronically signed by Naomy Alan MD in OV> 10/01/25 1259 DD/ 1207 TD/TT: 10/01/25 1218 Ms Access Database Developer: SALVADOR [facility] External Provider IMG CT PROCEDURES Final Result * (ABNORMAL) Complete Blood Count Manual Diff (10/01/2025 10:48 AM EST) White Blood Count 23.9(H) 4.8 - 10.8 X10*3/uL [facility] Red Blood Count 4.01(L) 4.20 - 5.50 X10*6/uL [facility] Hemoglobin 10.6(L) 12.0 - 16.0 g/dl [facility] Hematocrit 31.8(L) 37.0 - 47.0 % [facility] Mean Corpuscular Volume 79.3(L) 80.0 - 98.0 fL [facility] Mean Corpuscular Hemoglobin 26.4(L) 27.0 - 33.0 pg [facility] Mean Corpuscular HGB Conc 33.3 31.0 - 35.0 g/dl [facility] Red Cell Distribution Width 14.6 11.0 - 16.0 % [facility] Platelet Count 356 160 - 400 X10*3/uL [facility] Mean Platelet Volume 9.5 9.4 - 12.3 fL [facility] NRBC Pct Auto 0.0 0.0 - 0.2 /100WBC [facility] NRBC Abs Auto 0.000 0.0 - 0.012 X10*3/uL [facility] Neutrophils % Manual 82(H) 45 - 73 % [facility] Band Neutrophils Percent 0(L) 3 - 5 % [facility] Lymphocytes Percent Manual 9(L) 20 - 40 % [facility] Atypical Lymphs Percent Manual 1 0 - 6 % [facility] Monocytes Percent Manual 7 2 - 11 % [facility] BASOPHILS % MANUAL 1 0 - 2 % [facility] NEUTROPHILS ABSOLUTE MANUAL 19.6(H) 2.0 - 8.3 X10*3/uL [facility] LYMPHOCYTES ABSOLUTE MANUAL 2.2 1.2 - 4.9 X10*3/uL [facility] Atypical Lymph Absolute Manual 0.2 x10*3/uL [facility] MONOCYTES ABSOLUTE MANUAL 1.7(H) 0.1 - 1.2 X10*3/uL [facility] BASOPHILS ABSOLUTE MANUAL 0.2 0.0 - 0.2 X10*3/uL [facility] Platelet Estimate NORMAL NORMAL [facility] Large Platelet PRESENT [facility] Platelet Morphology Comment NOTED [facility] RBC Morphology NOTED [facility] Tear Drop Cells 1+ (0-2) /OIF [facility] Toxic Vacuolation PRESENT [facility] [place] Cells 1+ (0-2) /OIF [facility] 10/01/2025 10:4 8 AM EST 10/01/2025 10:53 AM EST us Generic External Data Provider LAB BLOOD ORDERAB LES Final Result [facility] [address] [place] [phone] * Beta-Hydroxybutyrate (10/01/2025 10:48 AM EST) Beta-Hydroxybut yrate 0.11 0.02 - 0.27 mmol/L [facility] 10/01/2025 10:4 8 AM EST 10/01/2025 10:53 AM EST us Generic External Data Provider LAB BLOOD ORDERAB LES Final Result Performing Organization Address City/[facility]/ZIP Co de Phone Number [facility] [address] [place] [phone] * hCG, Total, Quantitative (10/01/2025 10:48 AM EST) HCG Quantitative <2 mIU/mL [facility] Comment:Weeks post LMP Appro ximate hCG(Last Menstrual Period) Range (mIU/ml)3 - 4 weeks 9 - 1304 - 5 weeks 75 - 2,6005 - 6 weeks 850 - 20,8006 - 7 weeks 4000 - 100,2007 - 12 weeks 11,500 - 289,22711 - 16 weeks 18,300 - 137,49893 - 29 weeks (2nd trimester) 1,400 - 53,26586 - 41 weeks (3rd trimester) 940 - [...] Final Result Performing Organization Address [facility]/ZIP Co de Phone Number [facility] [address] [place] [phone] * (ABNORMAL) Magnesium (10/01/2025 10:48 AM EST) Only the most recent of2 resultswithin the time period is included. Magnesium 1.5(L) 1.6 - 2.6 mg/dL [facility] 10/01/2025 10:4 8 AM EST 10/01/2025 10:53 AM EST us Generic External Data Provider LAB BLOOD ORDERAB LES Final Result Performing Organization Address City/[facility]/ZIP Co de Phone Number [facility] [address] [place] [phone] * Lipase (10/01/2025 10:48 AM EST) Only the most recent of2 resultswithin the time period is included. Lipase 16 8 - 78 U/L [facility] 10/01/2025 10:4 8 AM EST 10/01/2025 10:53 AM EST us Generic External Data Provider LAB BLOOD ORDERAB LES Final Result Performing Organization Address [facility] Phone Number [facility] [address] [place] [phone] * Lactic Acid (10/01/2025 10:48 AM EST) Lactic Acid 1.7 0.5 - 2.0 mmol/L [facility] 10/01/2025 10:4 8 AM EST 10/01/2025 10:53 AM EST Generic External Data Provider LAB BLOOD ORDERAB LES Final Result Performing Organization Address [facility] Number [facility] [address] [place] [phone] * (ABNORMAL) POCT Hgb A1c (10/01/2025 9:13 AM EST) Only the most recent of2 resultswithin the time period is included. Hemoglobin A1C 8.7(A) 4.0 - 5.7 % QC Media Lot # [id number] Lot# Expiration Date 658, Blood 10/01/2025 9:13 AM EST us Linda Murphy DO POINT OF CARE [...] * Slide Review (09/29/2025 8:38 AM EST) Pathologist [facility] Slide Review VERIFIED [facility] 09/29/2025 8:38 AM EST 09/29/2025 8:38 AM EST Asuncion Bailey MD LAB BLOOD ORDERABLES Fin al Result Performing Organization Address [facility]/ZIP Co de Phone Number [facility] [address] [place] [phone] * (ABNORMAL) TSH with Reflex to Free T4 (09/29/2025 8:38 AM EST) Pathologist [facility] TSH reflex Free T4 42.32(H) 0.32 - 4.0 uIU/mL [facility] Blood 09/29/2025 8:38 AM EST 09/29/2025 8:38 AM EST Asuncion Bailey MD LAB BLOOD ORDERABLES Fin al Result Performing Organization Address City/[facility]/ZIP Co de Phone Number [facility] [address] [place] [phone] * (ABNORMAL) Alkaline phosphatase, isoenzymes (09/29/2025 8:38 AM EST) Alkaline Phosphatase 112 37 - 153 U/L [facility] Intestinal Isoenzymes 0(A) 1 - 24 % [facility] Bone Isoenzymes 32 28 - 66 % [facility] Liver Isoenzymes 68 25 - 69 % [facility] Placental Isoenzymes 0 <=0 % [facility] Macrohepatic Isoenzymes 0 <=0 % [facility] Comment:THIS TEST WAS PERFOR MED AT:[employer]/[id number] [place] [address]RAXVNARARTURO ROJAS MD,PHD Interpretation TNP [facility] Blood Venous blood specimen / Unknown 09/29/2025 8:38 AM EST 09/29/2025 8:38 AM EST us Asuncion Bailey MD LAB BLOOD ORDERABLES Fin al Result Performing Organization Address [facility] Co de Phone Number [facility] [address] [place] [phone] * (ABNORMAL) TSH (09/29/2025 8:38 AM EST) Only the most recent of2 resultswithin the time period is included. Thyroid Stimulating Hormone 42.32(H) 0.32 - 4.0 uIU/mL [facility] Comment:Note: A sustained TS H level above 2.5 uIU/mL may warrant further investigation. TSH 3rd Generation ([facility]) 09/29/2025 8:38 AM EST 09/29/2025 8:38 AM EST us Generic External Data Provider LAB BLOOD ORDERAB LES Final Result Performing Organization Address [facility]/ZIP Co de Phone Number [facility] [address] [place] [phone] * T4, Free (09/29/2025 8:38 AM EST) Only the most recent of2 resultswithin the time period is included. Free T4 (Free Thyroxine) 0.85 0.71 - 1.85 ng/dL [facility] 09/29/2025 8:38 AM EST 09/29/2025 8:38 AM EST us Generic External Data Provider LAB BLOOD ORDERAB LES Final Result Performing Organization Address [facility] Co de Phone Number [facility] [address] [place] [phone] * Amylase (09/29/2025 8:38 AM EST) Amylase 43 28 - 100 U/L [facility] Blood Venous blood specimen / Unknown 09/29/2025 8:38 AM EST 09/29/2025 8:38 AM EST Asuncion Bailey MD LAB BLOOD ORDERABLES Fin al Result Performing Organization Address [facility] de Phone Number [facility] [address] [place] [phone] * XR Chest 2 Views (09/29/2025 8:14 AM EST) Only the most recent of2 resultswithin the time period is included. Anatomical Region Laterality Modality Chest Radiographic Rosaura ging 09/29/2025 8:14 AM EST Narrative 09/29/2025 8:37 AM EST [address] [address] XRay Report Signed Patient: Tisha Ruiz MR#: [id number] 61 : 1970 Acct:[id number] Age/Sex: 55 / F ADM Date: 09/29/25 Loc: LATOYA Attending Dr: Asuncion Bailey MD Ordering Physician: Asuncion Bailey MD Date of Service: 09/29/25 Procedure(s): XR chest 2V Accession Number(s): [id number] cc: Asuncion Bailey MD Reason for Exam: [...] in OV> 09/29/2534 DD/ 3 TD/TT: 09/29/25825 Ms Access Database Developer: Procedure Note Donotuseinterpreter, Image - 09/29/2025 [place] [address] XRay Report Signed Patient: Ayanna RuiznMR#: [id number] 61 : 1970Acct:[id number] Age/Sex: 55 / FADM Date: 09/29/25 Loc: HO.XRAY Attending Dr: Asuncion Bailey MD Ordering Physician: Asuncion Bailey MD Date of Service: 09/29/25 Procedure(s): XR chest 2V Accession Number(s): [id number] cc: Asuncion Bailey MD Reason for Exam: [...] <Electronically signed by Franki Nixon MDin OV> 09/29/25 0834 DD/ 0814 TD/TT: 09/29/25 08 Ms Access Database Developer: Asuncion Bailey MD IMG XR PROCEDURES Edited Result - Final * Culture, Urine, Routine (09/21/2025 1:00 AM EST) Only the most recent of2 resultswithin the time period is included. Urine Urine specimen obtained by clean catch procedure / Unknown 09/21/2025 1:00 AM EST 09/21/2025 11:13 AM EST Comment:UACC Narrative [facility] - 09/23/2025 7:30 AM EST Escherichia coli Quant 50,000 to 100,000 cfu/mL Escherichia coli: Ampicillin >=32(R) Escherichia coli: Cefazolin (Urine) 2(S) Escherichia coli: Cefepime <=0.12(S) Escherichia coli: Ceftriaxone <=0.25(S) Escherichia coli: Ciprofloxacin <=0.06(S) Escherichia coli: Gentamicin <=1(S) Escherichia coli: Nitrofurantoin 32(S) Escherichia coli: Trimethoprim/Sulfamethoxazole <=20(S) Specimen Source: Urine clean catch Asuncion Bailey MD LAB MICROBIOLOGY - GENER AL ORDERABLES Final Result [facility] [address] [place] [phone] * POCT Urinalysis (09/20/2025 12:00 PM [...] Media Lot # [id number] Lot# Expiration Date [id number] Urine (Urine, Random) 09/20/2025 12:00 PM EST Asuncion Bailey MD POINT OF CARE TEST ENTER /EDIT ORDERABLES Final Result * Hepatic Function Panel (09/16/2025 9:34 AM EST) [facility] Bilirubin, Direct 0.1 0.0 - 0.5 mg/dL [facility] 09/16/2025 9:34 AM EST 09/16/2025 9:39 AM EST Generic External Data Provider LAB BLOOD ORDERAB LES Final Result Performing Organization Address City/[facility]/ZIP Co de Phone Number [facility] [address] [place] [phone] * (ABNORMAL) Glucose, Whole Blood (09/16/2025 9:15 AM EST) [facility] Glucose, Whole Blood 333(H) 60 - 115 mg/dL [facility] Comment:METER #: [id number] 09/16/2025 9:15 AM EST 09/16/2025 9:19 AM EST Generic External Data Provider LAB BLOOD ORDERAB LES Final Result Performing Organization Address City/[facility] Co de Phone Number [facility] [address] [place] [phone] * (ABNORMAL) Thyroglobulin, LC/MS/MS (09/15/2025 11:17 AM EST) [facility] Thyroglobulin, LC/MS/MS 0.2(A) ng/mL [facility] Comment:Reference Range: Int act Thyroid 2.8-40.9 Athyrotic <0.1 Note: Abnormal flagging is based on the reference interval for patients with intact thyroid.This test was performed using the Johny Coulterchemiluminescent method. Values obtained fromdifferent assay methods cannot be usedinterchangeably. Thyroglobulin levels, regardlessof value, should not be interpreted as absoluteevidence of the presence or absence of disease. Thyroglobulin Comment See Below [facility] Comment:Thyroglobulin antibo dies (TGAB) interfere withthyroglobulin (TG) assays; therefore, TGAB assayshould always be performed in conjunction with aTG assay.For additional information, please refer tohttp://education.[employer]/faq/VIO229(This link is being provided for informational/educational purposes only.)THIS TEST WAS PERFORMED AT:[employer] [place] [phone] DURANT MD 09/15/2025 11:1 7 AM EST 09/15/2025 11:17 AM EST us Generic External Data Provider LAB BLOOD ORDERAB LES Final Result [facility] [address] [place] [phone] * (ABNORMAL) Thyroblobulin, Tumor Marker w/Reflex (09/15/2025 11:17 AM EST) Thyroglobulin Antibody <1 <=1 IU/mL [facility] Comment:This Thyroglobulin a ntibody test was performedusing the [employer] Chemiluminescent method.Values obtained from different assay methods cannot beused interchangeably. Thyroglobulin antibody levels,regardless of value, should not be interpreted asabsolute evidence of the presence or absence ofdisease. Thyroglobulin, LC/MS/MS TNP [facility] Thyroglobulin Level 0.1(A) ng/mL [facility] Comment:Reference Range: Ath yrotic: <0.1 ng/mLReference range applies to differentiated thyroidcancer patients following treatment. The presence ofmeasurable thyroglobulin indicates the presence ofthyroglobulin-producing thyroid tissue. Clinicalcorrelation is advised.This Thyroglobulin test was performed using theKeycoopt Chemiluminescent method. Valuesobtained from different assay methods cannot beused interchangeably. Thyroglobulin levels, regardlessof value, should not be interpreted as absoluteevidence of the presence or absence of disease.THIS TEST WAS PERFORMED AT:[employer]/[id number] [place] [address]YWKQERGARTURO ROJAS MD,PHD 09/15/2025 11:1 7 AM EST 09/15/2025 11:17 AM EST us Generic External Data Provider LAB BLOOD ORDERAB LES Final Result Performing Organization Address City/[facility]/ZIP Co de Phone Number [facility] [address] [place] [phone] * Thyroglobulin Antibodies (09/15/2025 11:17 AM EST) Thyroglobulin Antibodies <1 < or = 1 IU/mL [facility] Comment:THIS TEST WAS PERFOR MED AT:[facility] [employer] [place] [phone] DURANT MD 09/15/2025 11:1 7 AM EST 09/15/2025 11:17 AM EST us Generic External Data Provider LAB BLOOD ORDERAB LES Final Result Performing Organization Address City/[facility]/ZIP Co de Phone Number [facility] [address] [place] [phone] * Vitamin B12 (Cobalamin) and Folate Panel, Serum (07/20/2025 12:57 PM EDT) Vitamin B12 377 200 - 900 pg/mL [facility] Comment:NORMAL 200-900 PG/ML INDETERMINATE 160-199 PG/ML DEFICIENT < 160 PG/ML Folate 14.2 > or = 4.0 ng/mL [facility] Comment:Reference Values:> o r = 4.0 [...] R esult Performing Organization Address [facility] Co de Phone Number [facility] [address] [place] [phone] * Iron And Total Iron Binding Capacity (07/20/2025 12:57 PM EDT) Pathologist [facility] Iron 59 30 - 160 mcg/dL [facility] Comment:Slight Hemolysis.Int erpret result with caution. Total Iron Binding Capacity 303 228 - 428 mcg/dL [facility] Percent Iron Saturation 19 15 - 50 % [facility] Unsaturated Iron Binding 244 ug/dL [facility] Blood Venous blood specimen / Unknown 07/20/2025 12:57 PM EDT 07/20/2025 12:57 PM EDT us Linda Murphy DO LAB BLOOD ORDERABLES Final R esult Performing Organization Address [facility] Phone Number [facility] [address] [place] [phone] * Alpha-Fetoprotein, Tumor Marker (07/20/2025 12:57 PM EDT) [facility] Alpha Fetoprotein 2.7 ng/mL [facility] Comment:Reference Range: <6. 1The use of AFP as a tumor marker in females is not recommended.This test was performed using the Johny Coulterchemiluminescent method. Values obtained fromdifferent assay methods cannot be usedinterchangeably. AFP levels, regardless ofvalue, should not be interpreted as absoluteevidence of the presence or absence of disease.THIS TEST WAS PERFORMED AT:[facility] [place] [phone] DURANT MD Blood Venous blood specimen / Unknown 07/20/2025 12:57 PM EDT 07/20/2025 12:57 PM EDT us Linda Murphy DO LAB BLOOD ORDERABLES Final R esult Performing Organization Address [facility]/ZIP Co de Phone Number [facility] [address] [place] [phone] * (ABNORMAL) Partial Thromboplastin Time, Activated (APTT) (07/20/2025 12:57 PM EDT) Partial Thromboplastin Time 40.1(H) 26.7 - 34.1 SEC [facility] Blood Venous blood specimen / Unknown 07/20/2025 12:57 PM EDT 07/20/2025 12:57 PM EDT Linda Murphy DO LAB BLOOD ORDERABLES Final R esult Performing Organization Address [facility] Co de Phone Number [facility] [address] [place] [phone] * (ABNORMAL) Prothrombin Time-INR (07/20/2025 12:57 PM EDT) Prothrombin Time 10.6(L) 10.9 - 12.4 SEC [facility] INTERNATIONAL NORM RATIO 0.9 0.9 - 1.1 [facility] Comment:INTERNATIONAL NORMAL IZED RATIO (INR) REFERENCE [...] ORDERABLES Final R esult Performing Organization Address City/[facility]/ZIP Co de Phone Number [facility] [address] [place] [phone] * Ferritin (07/20/2025 12:57 PM EDT) Ferritin 58 10 - 250 ng/mL [facility] Blood Venous blood specimen / Unknown 07/20/2025 12:57 PM EDT 07/20/2025 12:57 PM EDT Linda Murphy DO LAB BLOOD ORDERABLES Final R esult Performing Organization Address City/[facility]/ZIP Co de Phone Number [facility] [address] [place] [phone] * Albumin, Random Urine W/Creatinine (04/26/2025 11:11 AM EDT) Creatinine, Urine 52.62 mg/dL [facility] Microalbumin Urine 11.0 mg/L [facility] Microalbum Creatinine Ratio Ur 20.9 <30 ug/mg cr [facility] Comment:Albumin/Creatinine R atio Reference Ranges: Normal: < 30 ug/mg creatinine Microalbuminuria: 30 - 300 ug/mg creatinineClinical Albuminuria: > 300 ug/mg creatinine Urine (Urine, Random) 04/26/2025 11:11 AM EDT 04/26/2025 12:56 PM EDT Linda Murphy DO LAB URINE ORDERABLES Final R esult Performing Organization Address City/[facility]/ZIP Co de Phone Number [facility] [address] [place] [phone] * Hepatitis C Antibody with Reflex to HCV, RNA, Quantitative, Real-Time PCR (04/26/2025 11:11 AM EDT) Hepatitis C Antibody Nonreactive Nonreactive [facility] Comment:Antibodies to HCV no t detected; does not exclude early acuteHCV infection. Blood Venous blood specimen / Unknown 04/26/2025 11:11 AM EDT 04/26/2025 12:56 PM EDT Linda Murphy DO LAB BLOOD ORDERABLES Final R esult Performing Organization Address [facility]/ZIP Co de Phone Number [facility] [address] [place] [phone] * HIV-1/2 Antigen and Antibodies, Fourth Generation, with Reflexes (04/26/2025 11:11 AM EDT) HIV AB/AG Nonreactive Nonreactive [facility] Comment:HIV-1 p24 Ag and/or HIV-1/HIV-2 Ab not detected.A test result that is nonreactive does not exclude thepossibility of exposure to or infection with HIV-1 and/orHIV-2. Nonreactive results in this assay for individualswith prior exposure to HIV-1 and/or HIV-2 may be due toantigen and antibody levels that are below the limit ofdetection of this assay.The Tipzu HIV Ag/Ab Combo assay result andsupplemental assay results should be interpreted inconjunction with the patient's clinical presentation,history and other laboratory results. If the results areinconsistent with clinical evidence, additional testing issuggested to confirm the result. Blood Venous blood specimen / Unknown 04/26/2025 11:11 AM EDT 04/26/2025 12:56 PM EDT Linda Murphy DO LAB BLOOD ORDERABLES Final R esult Performing Organization Address [facility]/ZIP Co de Phone Number [facility] [address] [place] [phone] * (ABNORMAL) Lipid Panel, Standard (04/26/2025 11:11 AM EDT) Triglycerides 161(H) <150 mg/dL [facility] Comment:Desirable Triglyceri de: less than 150 mg/dLBorderline High Triglyceride 150-199 mg/dLHigh Triglyceride: 200-499 mg/dLVery High Triglyceride: greater than or equal to 5OO mg/dL Cholesterol 139 <200 mg/dL [facility] Comment:Desirable Cholestero l: less than 200 mg/dLBorderline High Cholesterol: 200-239 mg/dLHigh Cholesterol: greater than 239 mg/dL LDL Cholesterol Calculated 64 <100 mg/dL [facility] Comment:Desirable LDL: less than 100 mg/dLNear Optimal/Above Optimal LDL: 110- 129 mg/dLBorderline High LDL: 130-159 mg/dLHigh LDL: 160-189 mg/dLVery High LDL: greater than or equal to 190 mg/dL HDL Cholesterol 43 >40 mg/dL [facility] Comment:Desirable HDL: great er than 40 mg/dL Note: This HDL assay may give artificially low results in patients with liver disease. Blood Venous blood specimen / Unknown 04/26/2025 11:11 AM EDT 04/26/2025 12:56 PM EDT us Linda Murphy DO LAB BLOOD ORDERABLES Final R esult [facility] [address] [place] [phone] * Referral to Podiatry (03/04/2025) us Asuncion Bailey MD OUTPATIENT REFERRAL ANDERSON VALENTINO Final Result * HPV E6/E7 RFLX LUIS 16 18/45 (05/21/2022 3:45 PM EDT) HPV mRNA E6/E7 rflx Not Detected Not Detected [facility] Comment: Methodology: Tax Audit Manager-Mediated Amplification This assay detects E6/E7 viral messenger RNA (mRNA) from 14 high-risk HPV types (16,18,31,33,35,39,45,51,52,56,58,59,66,68). Cervical sources are required for HPV testing. If a vaginal source from a patient who has had a total hysterectomy with removal of cervix was submitted, please contact the testing laboratory for alternative testing options. For additional information, please refer to http://education.Culture Kitchen/faq/ZKI619x2 (This link if provided for information/ educational purposes only.) THIS TEST WAS PERFORMED AT: [facility] [employer] [address] [place] [address],[place] [phone] VALERIA DURANT MD 05/21/2022 3:45 PM EDT us Fercho Palmer MD HISTORICAL/NON ORDERABLE LABS Fi nal Result [facility] [address] [place] [address], * Pap Smear (02/15/2022 12:00 AM EDT) Swab us Linda Murphy DO LAB CYTOLOGY ORDERABLES Ce l Result [address], [place] [phone] * DIGITAL BILATERAL SCREEN 1 (04/01/2019 2:56 [...] 10/14/2025 Patient has chronic kidney disease 10/14/2025 Insurance [facility]ARE < 65 [place] [id number] [employer] Care Teams Medical Office Representative Relationship Specialty Start Date End Date Linda Murphy DO [address] [place] [address] PCP - General Family Medicine 11/24/12
--- OUTSIDE RECORDS SUMMARY | 2025-10-14 12:02 | XMS_ITS | Encounter Summary ---
Author Organization [employer] Address [address] [place] [address] Care Team Providers Care Chief Fishery Division Name Role Phone Linda Murphy DO Primary Care Provider [phone] Reason for Visit * Reason Onset Date Comments Hospital Follow-up 10/12/2025 Encounter Details Date Type Department Care Team ([facility] st Contact Info) Description 10/12/2025 Telephone [facility] MEDICINE [address] [place] [address] Linda Murphy DO [address] [place] [address] Hospital Follow-up Social History Tobacco Use Types Packs/Day Years [...] encounter Miscellaneous Notes * Telephone Encounter - Mona De Oliveira - 10/12/2025 11:13 AM EST Tc from pt requesting a HDF appt. Hospital: [facility] Date of admission: 10/01 Discharge date: 10/08 Diagnosed: cyst, vomiting *Send message to [facility] Clinical Care Coordinators documented in this encounter Plan of Treatment Upcoming Encounters Date Type Department Care Team (Late st Contact Info) Description 10/18/2025 11:45 AM EST Office Visit [facility] [address] [place] [address] Linda Murphy DO [address] [place] [address] 10/26/2025 9:15 AM EST Office Visit [facility] [address] [place] [address] Linda Murphy DO [address] [place] [address] documented as of this encounter Goals Goal Patient Goal Type Associated Problems Recent Progress Patient-Stated? Author Hemoglobin A1c < 7 Result Component 8.7( 5 9:13 AM EST) No Neri Yang, Kaiden Help patients manage their type 2 diabetes [...] Plan Patient has chronic kidney disease No Yaiam Marquez RN Patient has chronic kidney disease Care Plan Patient has chronic kidney disease No Yaima Marquez RN Weekly blood pressure task Care Plan Weekly blood pressure task No Mona Velazquez Weekly blood pressure task Care Plan Weekly blood pressure task No Mona Velazquez Patient has chronic kidney disease Care Plan Patient has chronic kidney disease No Mona Velazquez Patient has chronic kidney disease Care Plan Patient has chronic kidney disease No Mona Velazquez Weekly blood pressure task Care Plan Weekly blood pressure task No Ivan Barlow Weekly blood pressure task Care Plan Weekly blood pressure task No Ivan Barlow Patient has chronic kidney disease Care Plan Patient has chronic kidney disease No Ivan Barlow Patient has chronic kidney disease Care Plan Patient has chronic kidney disease No Barlow, Lorenys documented as of this encounter Visit Diagnoses [...] 10/12/2025 Patient has chronic kidney disease 10/12/2025 Assessment Noted Time PHQ-9 Depression Total Score: 0 07/20/20 11:20 AM EDT documented as of this encounter Care Teams Chief Fishery Division Relationship Specialty Start Date End Date Linda Murphy DO [address] [place] [phone] PCP - General Family Medicine 11/24/12 documented as of this encounter
--- OUTSIDE RECORDS SUMMARY | 2025-10-14 12:02 | XMS_ITS | Encounter Summary ---
Author Organization [employer] Address [address] 7[address] [place] [address] Care Team Providers Care Dairy Chemist Name Role Phone Linda Murphy DO Primary Care Provider [phone] Antionette Murphy PharmD Unavailable [phone] Reason for Visit * Reason Comments Med Refill Encounter Details Date Type Department Care Team (Late st Contact Info) Description 02/11/2025 Refill [facility] [address] [place] [address] Linda Murphy DO [address] [place] [address] Chronic low back pain, unspecified back pain [...] Description 10/18/2025 11:45 AM EST Office Visit [address] [address] Linda Murphy DO [address] [place] [address] 10/26/2025 9:15 AM EST Office Visit [address] [address] Linda Murphy DO [address] [place] [address] documented as of this encounter Goals Goal [...] documented as of this encounter Care Teams Dairy Chemist Relationship Specialty Start Date End Date Linda Murphy DO [address] [place] [address] PCP - General Family Medicine 11/24/12 Antionette Murphy PharmD [address] [place] [address] Pharmacist Internal Medicine 07/15/24 02/25/25 documented as of this encounter
--- OUTSIDE RECORDS SUMMARY | 2025-10-14 12:02 | XMS_ITS | Encounter Summary ---
Author Organization [employer] Address [address] 7[address] [place] [address] Care Team Providers Care Senior Software Qa Engineer Name Role Phone Linda Murphy DO Primary Care Provider [phone] Reason for Visit * Reason Comments Med Refill Encounter Details Date Type Department Care Team ([facility] st Contact Info) Description 07/14/2025 Refill [facility] PEDS [address] [place] [address] Linda Murphy DO [address] [facility] [place] [address] Chronic bilateral low back pain without sciatica [...] Description 10/18/2025 11:45 AM EST Office Visit [address] [address] Linda Murphy DO [address] [place] [address] 10/26/2025 9:15 AM EST Office Visit [address] [address] iLnda Murphy DO [address] [place] [address] documented as of this encounter Goals Goal [...] as of this encounter Care Teams Senior Software Qa Engineer Relationship Specialty Start Date End Date Linda Murphy DO [address] [place] [address] PCP - General Family Medicine 11/24/12 documented as of this encounter
--- OUTSIDE RECORDS SUMMARY | 2025-10-14 12:02 | XMS_ITS | Encounter Summary ---
Author Organization [facility] Address [address] [facility] [address] [place] [phone] Phone Care Team Providers Care Warehouse Assistant Name Role Phone Linda Murphy DO Primary Care Provider Encounter Details Date Type Department Care Team (Late st Contact Info) Description 07/03/2024 Procedure [facility], Ct Scan - [address] [address] Social History Tobacco Use Types Packs/Day Years [...] 3:17 PM EDT Antonia Beaulieu RN * [place] Suicide Severity Rating Scale (Screener/Recent Self-Report) Question [...] on filedocumented in this encounter Care Teams Warehouse Assistant Relationship Specialty Start Date End Date Linda Murphy DO [address] [place] [phone] PCP - General Family Medicine 07/03/24 documented as of this encounter Additional Source Comments The information contained in this document represents components of the legal health record. It is not the complete legal health record.[facility]
--- OUTSIDE RECORDS SUMMARY | 2025-10-14 12:02 | XMS_ITS | Encounter Summary ---
Author Organization [employer] Address [address] [place] [address] 7 [place] [address] Care Team Providers Care Artist'S Model Name Role Phone Linda Murphy DO Primary Care Provider [phone] Reason for Visit * Reason Comments Transition Of Care (Tcm) HDF- scheduled Encounter Details Date Type Department Care Team ([facility] st Contact Info) Description 10/12/2025 Patient Outreach [facility] MEDICINE [address] [place] [address] Linda Murphy DO [address] [place] [address] Transition Of Care (Tcm) (HDF- scheduled) Social History Tobacco Use Types Packs/Day Years [...] AM EDT documented as of this encounter Progress Notes * Abdelrahman Medellin RN - 10/12/2025 12:38 PM EST TC placed to patient. Patient reported right lower ankle swelling that started yesterday after eating Ramen. Patient reported some of right ankle swelling decreased when she elevated her legs and denies pitting edema, redness or pain. RN advised patient to decrease her sodium intake, drink fluids and elevate her ankle. Patient reported her sister is a nurse and she keeps an eye on me. RN scheduled an appt with patient PCP for further evaluation. RN advised patient if her symptoms worsen to call [facility] or go to the ED. Patient verbalized understanding. Protocol Used: Leg Swelling and Edema (Adult) Protocol-Based Disposition: See in Office or Video Visit Today Video visit not offered Positive Triage Questions: * Patient wants to be seen * Mild swelling of both ankles (i.e., pedal edema) AND new-onset or getting worse * All higher-acuity triage questions were negative. Care Advice Discussed: * How to Decrease Ankle and Lower Leg Swelling * Reassurance and Education - Localized Itching With Puffiness or Swelling * Reasons To Call Back - Swelling becomes worse - Swelling becomes red or painful to the touch - Calf pain occurs and becomes constant - You become worse documented in this encounter Miscellaneous Notes * Significant Event - Ivan Barlow - 10/12/2025 12:45 PM EST 10/12/25 1244 Hospital Discharges and Admission for [facility] Type of Visit Hospital Admission Date of Admission/Visit 10/01/25 Date of Discharge 10/08/25 Facility [facility] Diagnosis Pelvic abscess in female Disposition Discharged Home Follow-Up Actions Follow-Up Needed Provider appointment Follow-Up Outcome Booked Appointment;Spoke to Patient Initial Contact Date 10/12/25 CC Ivan Ascencio placed outbound call to patient for HDF outreach. Patient's name and were confirmed. Patient educated on the importance of follow up with provider following inpatient admission. Patient offered an HDF appt. Patient is agreeable to an appointment and has been scheduled for 10/26/2025 at 9:[address] Murphy . Patient also stated she is having right leg swelling. CCC advised patient a message will be sent to triage. Insurance verified prior to scheduling. Patient advised tobring to appointment a photo id and insurance card. Patient provided with education on contacting the Health Center with any questions or concerns prior to the scheduled appointment. Patient educatedon extended clinic hours on Mondays and Wednesdays, and Walk-In Urgent Care Located in [facility]. Patient provided with after-hours line for [facility], , which offer night time triage service and option to transfer to production sorter provider if needed. CC will request Discharge summary to be scanned into chart. documented in this encounter Plan of Treatment Upcoming Encounters Date Type Department Care Team (Late st Contact Info) Description 10/18/2025 11:45 AM EST Office Visit [facility] MEDICINE [address] [place] [address] Linda Murphy, DO [address] [place] [address] 10/26/2025 9:15 AM EST Office Visit [facility] MEDICINE [address] [place] [address] Linda Murphy DO [address] [place] [address] documented as of this encounter Goals Goal [...] Plan Patient has chronic kidney disease No Elver Mona De Oliveira Weekly blood pressure task Care Plan Weekly blood pressure task No Ivan Barlow Weekly blood pressure task Care Plan Weekly blood pressure task No Ivan Barlow Patient has chronic kidney disease Care Plan Patient has chronic kidney disease No Ivan Barlow Patient has chronic kidney disease Care Plan Patient has chronic kidney disease No Ivan Barlow documented as of this encounter Visit Diagnoses [...] documented as of this encounter Care Teams Artist'S Model Relationship Specialty Start Date End Date Linda Murphy DO [address] [place] [address] PCP - General Family Medicine 11/24/12 documented as of this encounter
--- OUTSIDE RECORDS SUMMARY | 2025-10-14 12:02 | XMS_ITS | Encounter Summary ---
Author Organization [employer] Address [address] [facility] 7t [place] [address] Care Team Providers Care Watch Crystal Cutter Name Role Phone Linda Murphy DO Primary Care Provider DellogNeri tovar PharmD Unavailable Unavail able Antionette Murphy PharmD Unavailable Reason for Visit * Reason Onset Date Comments triage 11/14/2022 Encounter Details Date Type Department Care Team (Late st Contact Info) Description 11/14/2022 Telephone [facility] MEDICINE [address] [place] [address] Linda Murphy DO [address] [place], [place] [phone] triage Social History Tobacco Use Types Packs/Day [...] Triage call Pt reports seen in [facility] today. Pt reports bruising on bilateral [...] Description 10/18/2025 11:45 AM EST Office Visit [address] [address] Linda Murphy DO [address] [place] [address] 10/26/2025 9:15 AM EST Office Visit [address] [address] Linda Murphy DO [address] [place] [address] documented as of this encounter Visit Diagnoses Not on filedocumented in this encounter Care Teams Watch Crystal Cutter Relationship Specialty Start Date End Date Linda Murphy DO [address] [place] [address] PCP - General Family Medicine 1/14/13 Neri Yang, PharmD [address] [place] [address] Pharmacist Internal Medicine 11/23/22 10/17/23 Antionette Murphy, EricD [address] [place] [address] Pharmacist Internal Medicine 07/15/24 02/25/25 documented as of this encounter
--- OUTSIDE RECORDS SUMMARY | 2025-10-14 12:02 | XMS_ITS | Encounter Summary ---
Author Organization [employer] Address [address] [facility] 7t [place] [address] Care Team Providers Care Manufacturer'S Representative Name Role Phone Linda Murphy DO Primary Care Provider [phone] Antionette Murphy PharmD Unavailable [phone] Reason for Visit * Reason Comments Med Refill Encounter Details Date Type Department Care Team ([facility] st Contact Info) Description 11/24/2023 Refill [facility] MEDICINE [address] [place] [address] Linda Murphy DO [address] [place] [address] Social History Tobacco Use Types Packs/Day Years [...] Description 10/18/2025 11:45 AM EST Office Visit [address] [address] Linda Murphy DO [address] [place] [address] 10/26/2025 9:15 AM EST Office Visit [address] [address] Linda Murphy DO [address] [place] [address] documented as of this encounter Goals Goal [...] documented as of this encounter Care Teams Manufacturer'S Representative Relationship Specialty Start Date End Date Linda Murphy DO [address] [place] [phone] PCP - General Family Medicine 11/24/12 Antionette Murphy PharmD [address] [place] [phone] Pharmacist Internal Medicine 07/15/24 02/25/25 documented as of this encounter
--- OUTSIDE RECORDS SUMMARY | 2025-10-14 12:02 | XMS_ITS | Encounter Summary ---
Author Organization [employer] Address [address] [facility] 7t [place] [address] Care Team Providers Care Etcher Aircraft Name Role Phone Linda Murphy DO Primary Care Provider [phone] Antionette Murphy PharmD Unavailable [phone] Reason for Visit * Reason Onset Date Comments Durable Medical Equipment 03/06/2024 Encounter Details Date Type Department Care Team ([facility] st Contact Info) Description 03/06/2024 Telephone [facility] MED[facility]INE [address] [place] [address] Linda Murphy DO [address] [place] [address] Durable Medical Equipment Social History Tobacco Use [...] Description 10/18/2025 11:45 AM EST Office Visit [address] [address] Linda Murphy DO [address] [place] [address] 10/26/2025 9:15 AM EST Office Visit [address] [address] Linda Murphy, [address] [place] [address] documented as of this encounter Goals Goal [...] documented as of this encounter Care Teams Etcher Aircraft Relationship Specialty Start Date End Date Linda Murphy DO [address] [place] [address] PCP - General Family Medicine 11/24/12 Antionette Murphy PharmD [address] [place] [address] Pharmacist Internal Medicine 07/15/24 02/25/25 documented as of this encounter
--- OUTSIDE RECORDS SUMMARY | 2025-10-14 12:02 | XMS_ITS | Encounter Summary ---
Author Organization [employer] Address [address] [facility] 7t [place] [address] Care Team Providers Care Agent Telegrapher Name Role Phone Linda Murphy DO Primary Care Provider [phone] Antionette Murphy PharmD Unavailable [phone] Reason for Visit * Reason Comments Med Refill Encounter Details Date Type Department Care Team ([facility] st Contact Info) Description 02/23/2024 Refill [facility] MEDICINE [address] [place] [address] Linda Murphy DO [address] [place] [address] Chronic obstructive pulmonary disease, unspecified COPD type [...] Description 10/18/2025 11:45 AM EST Office Visit [address] [address] Linda Murphy DO [address] [place] [address] 10/26/2025 9:15 AM EST Office Visit [address] [address] Linda Murphy DO [address] [place] [address] documented as of this encounter Goals Goal [...] documented as of this encounter Care Teams Agent Telegrapher Relationship Specialty Start Date End Date Linda Murphy DO [address] [place] [address] PCP - General Family Medicine 11/24/12 Antionette Murphy, [place] [address] [place] [address] Pharmacist Internal Medicine 07/15/24 02/25/25 documented as of this encounter
--- OUTSIDE RECORDS SUMMARY | 2025-10-14 12:02 | XMS_ITS | Encounter Summary ---
Author Organization [employer] Address [address] [facility] 7t [place] [address] Care Team Providers Care Door Serviceman Name Role Phone Linda Murphy DO Primary Care Provider [phone] Antionette Murphy PharmD Unavailable [phone] Reason for Visit * Reason Onset Date Comments Med Refill 12/18/2024 Encounter Details Date Type Department Care Team (Late st Contact Info) Description 12/18/2024 Refill [facility] MEDICINE [address] [place] [address] Linda Murphy DO [address] [place] [address] Social History Tobacco Use Types Packs/Day Years [...] Description 10/18/2025 11:45 AM EST Office Visit [address] [address] Linda Murphy DO [address] [place] [address] 10/26/2025 9:15 AM EST Office Visit [address] [address] Linda Murphy DO [address] [place] [address] documented as of this encounter Goals Goal [...] as of this encounter Care Teams Door Serviceman Relationship Specialty Start Date End Date Linda Murphy DO [address] [place] [address] PCP - General Family Medicine 11/24/12 Antionette Murphy, PharmD [address] [place] [address] Pharmacist Internal Medicine 07/15/24 02/25/25 documented as of this encounter
--- OUTSIDE RECORDS SUMMARY | 2025-10-14 12:02 | XMS_ITS | Encounter Summary ---
Author Organization [employer] Address [address] [facility] 7t [place] [address] Care Team Providers Care Longwall Headgate Operator Name Role Phone Linda Murphy DO Primary Care Provider DelNeri zavala PharmD Unavailable Unavail able Antionette Murphy PharmD Unavailable Reason for Visit * Reason Onset Date Comments letter michael lopez 07/26/2023 Encounter Details Date Type Department Care Team (Late st Contact Info) Description 07/26/2023 Telephone [facility] MEDICINE [address] [place] [address] Linda Murphy DO [address] [place], [place] [phone] letter michael lopez Social History Tobacco Use [...] to Medical side. Please contact pt at [phone] documented in this encounter Plan of Treatment Upcoming Encounters Date Type Department Care Team (Late st Contact Info) Description 10/18/2025 11:45 AM EST Office Visit [facility] MED[facility]INE [address] [place] [address] Linda Murphy DO [address] [place] [address] 10/26/2025 9:15 AM EST Office Visit [facility] [address] [place], [place] [phone] Linda Murphy DO [address] [place] [address] documented as of this encounter Goals Goal [...] documented as of this encounter Care Teams Longwall Headgate Operator Relationship Specialty Start Date End Date Linda Murphy DO [address] [place] [address] PCP - General Family Medicine 11/24/12 Neri Yang, PharmD [address] [place] [address] Pharmacist Internal Medicine 11/23/22 10/17/23 Antionette Murphy PharmD [address] [place] [address] Pharmacist Internal Medicine 07/15/24 02/25/25 documented as of this encounter
--- OUTSIDE RECORDS SUMMARY | 2025-10-14 12:02 | XMS_ITS | Encounter Summary ---
Author Organization [employer] Address [address] [place] [address] 7t [place] [address] Care Team Providers Care Buoy Tender Name Role Phone Linda Murphy DO Primary Care Provider [phone] DelNeri zavala PharmD Unavailable Unavail able Antionette Murphy PharmD Unavailable Reason for Visit * Reason Comments Med Refill Encounter Details Date Type Department Care Team (Late st Contact Info) Description 07/08/2023 Refill [facility] [address] [place] [address] Linda Murphy DO [address] [place] [address] Pain Social History Tobacco Use Types Packs/Day [...] Description 10/18/2025 11:45 AM EST Office Visit [facility] [address] [place] [address] Linda Murphy DO [address] [place] [address] 10/26/2025 9:15 AM EST Office Visit [facility] [address] [facility] [place] [address] Linda Murphy DO [address] [facility] [place] [address] documented as of this encounter Goals Goal [...] documented as of this encounter Care Teams Buoy Tender Relationship Specialty Start Date End Date Linda Murphy DO [facility] [place] [address] PCP - General Family Medicine 11/24/12 Neri Yang, PharmD [facility] [place] [address] Pharmacist Internal Medicine 11/23/22 10/17/23 Antionette Murphy, EricD [address] [place] [address] Pharmacist Internal Medicine 07/15/24 02/25/25 documented as of this encounter
--- OUTSIDE RECORDS SUMMARY | 2025-10-14 12:02 | XMS_ITS | Encounter Summary ---
Author Organization [employer] Address [address] [facility] [address] 7t [place] [address] Care Team Providers Care Mineralogy Professor Name Role Phone KatherineLinda Primary Care Provider [phone] Encounter Details Date Type Department Care Team (Latest Contact Info) Description 10/14/2025 Travel Social History Tobacco Use Types Packs/Day [...] t he electric, gas, oil or water [employer] threatened to shut off services in your [...] Description 10/18/2025 11:45 AM EST Office Visit [address] [address] Linda Murphy DO [address] [place] [address] 10/26/2025 9:15 AM EST Office Visit [address] [address] Linda Murphy DO [address] [place] [address] documented as of this encounter Goals Goal [...] Weekly blood pressure task No Barlow Lorenys Patient has chronic kidney disease Care Plan Patient has chronic kidney disease No Barlow Lorenys Patient has chronic kidney disease Care Plan Patient has chronic kidney disease No Barlow Lorenys Weekly blood pressure task Care Plan Weekly blood pressure task [facility] [place] Weekly blood pressure task Care Plan Weekly blood pressure task No [place] Patient has chronic kidney disease Care Plan Patient has chronic kidney disease No [facility] [place] Patient has chronic kidney disease Care Plan Patient has chronic kidney disease No [facility] [place] Weekly blood pressure task Care Plan [...] documented as of this encounter Care Teams Mineralogy Professor Relationship Specialty Start Date End Date Linda Murphy DO [address] [place] [address] PCP - General Family Medicine 11/24/12 documented as of this encounter
--- OUTSIDE RECORDS SUMMARY | 2025-10-14 12:02 | XMS_ITS | Encounter Summary ---
Author Organization [employer] Address [address] [facility] [address] 7t [place] [address] Care Team Providers Care Spinner Frame Name Role Phone Linda Murphy DO Primary Care Provider [phone] Antionette Murphy PharmD Unavailable [phone] Reason for Visit * Reason Onset Date Comments Med Refill 12/18/2024 Encounter Details Date Type Department Care Team (Late st Contact Info) Description 12/18/2024 Refill [facility] [address] [place] [address] Linda Murphy DO [address] [facility] [place] [address] Acute post-traumatic headache, not intractable; Chronic obstructive [...] Description 10/18/2025 11:45 AM EST Office Visit [address] [address] iLnda Murphy DO [address] [place] [address] 10/26/2025 9:15 AM EST Office Visit [address] [address] Linda Murphy DO [address] [place] [address] documented as of this encounter Goals Goal [...] documented as of this encounter Care Teams Spinner Frame Relationship Specialty Start Date End Date Linda Murphy DO [address] [place] [address] PCP - General Family Medicine 11/24/12 Antionette Murphy PharmD [address] [place] [address] Pharmacist Internal Medicine 07/15/24 02/25/25 documented as of this encounter
== END 2025-10-14 10:07 | disposition home or self-care (01) ==
LOC: HO.US 10:06
PROVIDERS: PCP Family Medicine; Visit Provider Family Medicine
DX: A41.9 Sepsis, unspecified organism (principal); R65.21 Severe sepsis with septic shock; N17.9 Acute kidney failure, unspecified; R60.0 Localized edema; N39.0 Urinary tract infection, site not specified
CPT/HCPCS: 36415; 80053; 85025; 93971

== ENCOUNTER → 2025-10-14 10:37 | Outpatient (BNV) | payer OTHER, SELFPAY | PROVIDERS: PCP Family Medicine; Visit Provider Radiology Diagnostic Radiology | DX: R60.0 Localized edema (principal) | CPT/HCPCS: 93971 ==

== ENCOUNTER 2025-10-22 11:44 | Inpatient (IN) | payer OTHER, SELFPAY ==
--- OUTSIDE RECORDS SUMMARY | 2025-10-18 11:45 | XMS_ITS | Encounter Summary ---
Author Organization [employer] Address [address] [facility] 7t [place] [address] Care Team Providers Care Telephone Maintenance Mechanic Name Role Phone Linda Murphy DO Primary Care Provider [phone] Encounter Details Date Type Department Care Team ([facility] st Contact Info) Description 10/18/2025 11:45 AM EST Office Visit [facility] MEDICINE [address] [place] [address] Linda Murphy DO [address] [place] [address] Diarrhea, unspecified type (Primary Dx); Anxiety Social History Tobacco Use Types Packs/Day Years [...] Sign Reading Time Taken Comments Blood Pressure 126/62 10/18/2025 12:05 PM EST Pulse 120 10/18/2025 12:05 PM EST Temperature 36.2 C (97.1 F) 10/18/2025 12:05 PM EST Respiratory Rate 20 10/18/2025 12:05 PM EST Oxygen Saturation 95% 10/18/2025 12:05 PM EST Inhaled Oxygen Concentration - - Weight 97.5 kg (215 lb) 10/18/2025 12:05 PM EST Height 170.2 cm (5' 7 ) 10/18/2025 12:05 PM EST Body Mass Index 33.67 10/18/2025 12:05 PM EST documented in this encounter Plan of Treatment Scheduled Orders Name Type Priority Associated Diagnoses Orde r Schedule Leukocytes Stool Qualitative Lab Routine Diarrhea, unspecified type Expected: 10/18/2025, Expires: 10/18/2026 Stool - Gastrointestinal panel Microbiology Routine Diarrhea, unspecified type Expected: 10/18/2025 (Approximate), Expires: 10/18/2026 CDiff Gene PCR Lab Routine Diarrhea, unspecified type Expected: 10/18/2025 (Approximate), Expires: 10/18/2026 documented as of this encounter Goals Goal [...] has chronic kidney disease No Ivan Barlow Weekly blood pressure task Care Plan Weekly blood pressure task No Paul Pedraza [place] Weekly blood pressure task Care Plan Weekly blood pressure task No Paul Pedraza NM Patient has chronic kidney disease Care Plan Patient has chronic kidney disease No Paul Pedraza [place] Patient has chronic kidney disease Care Plan Patient has chronic kidney disease No Paul Pedraza [place] Weekly blood pressure task Care Plan Weekly [...] Care Plan Weekly blood pressure task No Joselyn García RN Weekly blood pressure task Care Plan Weekly blood pressure task No Joselyn García RN Patient has chronic kidney disease Care Plan Patient has chronic kidney disease No Joselyn García RN Patient has chronic kidney disease Care Plan Patient has chronic kidney disease No Joselyn García RN Weekly blood pressure task Care Plan Weekly blood pressure task No Robyn Glover [place] Weekly blood pressure task Care Plan Weekly blood pressure task No Robyn Glover [place] Patient has chronic kidney disease Care Plan Patient has chronic kidney disease No Robyn Glover [place] Patient has chronic kidney disease Care Plan Patient has chronic kidney disease No Robyn Glover [place] documented as of this encounter Visit Diagnoses Diagnosis Diarrhea, unspecified type- Primary Anxiety Anxiety state, unspecified documented in this encounter Additional Health Concerns [...] kidney disease 10/14/2025 Weekly blood pressure task 10/15/2025 Weekly blood pressure task 10/15/2025 Patient has chronic kidney disease 10/15/2025 Patient has chronic kidney disease 10/15/2025 Weekly blood pressure task 10/18/2025 Weekly blood pressure task 10/18/2025 Patient has chronic kidney disease 10/18/2025 Patient has chronic kidney disease 10/18/2025 Assessment Noted Time PHQ-9 Depression Total Score: 0 07/20/20 11:20 AM EDT documented as of this encounter Care Teams Telephone Maintenance Mechanic Relationship Specialty Start Date End Date Linda Murphy DO [address] [place] [id number] PCP - General Family Medicine 11/24/12 documented as of this encounter
[2025-10-22] VITALS (10 sets, daily range): BP systolic 79–125; BP diastolic 41–62; PULSE 99–130; RESP 20–26; TEMP 37–39.4; O2SAT 88–97; BMI 33.4
--- NOTE | ~2025-10-22 | CT_ITS ---
EXAMINATION: CT ABDOMEN AND PELVIS WITHOUT CONTRAST CLINICAL INFORMATION: recent pelvic abscess, low back pain, no IV contrast due to acute kidney injury COMPARISON: 10/08/2025 CT and 10/03/2025 MRI TECHNIQUE: Multidetector volumetric imaging was performed from the superior aspect of the liver through the pubic symphysis. Sagittal and coronal reformatted images were obtained on the technologist's workstation. This CT examination was performed using dose optimization techniques as appropriate, variously including the following: *Automated exposure control *Adjustment of mA and/or kV according to patient size (this includes techniques or standardized protocols for targeted exams where dose is matched to indication/reason for exam; i.e. extremities or head) *Use of iterative reconstruction technique FINDINGS: LUNG BASES: Again seen is a small loculated effusion in the left lung base There is a new density in the dependent portion of the right lower lobe that likely represents atelectasis and/or small effusion. Pneumonia is not completely excluded. Small pericardial effusion is similar to the prior. LIVER, GALLBLADDER, AND BILIARY TREE: The liver is normal in size, shape, and attenuation. No focal hepatic lesion or biliary ductal dilatation is present. The gallbladder is surgically absent with clips in the gallbladder fossa. PANCREAS: Unremarkable. SPLEEN: Unremarkable. ADRENAL GLANDS: Unremarkable. KIDNEYS AND URETERS: Moderate hydronephrosis probably related to inflammatory changes in the pelvis is stable. BLADDER: Unremarkable. GASTROINTESTINAL TRACT: The small and large bowel are unremarkable. The appendix is unremarkable. ABDOMINAL WALL: No significant hernia is appreciated. LYMPH NODES: Shotty periaortic lymph nodes are present in the abdomen and iliac fossa VASCULAR: Unremarkable. PELVIC VISCERA: Again seen is a fluid collection, now containing gas, in the cul-de-sac, along the dorsal surface of the uterus. The margins are somewhat ill-defined due to lack of IV contrast. The collection measures approximately 9.3 x 4.4 x 5.5 cm, previously 6.3 x 2.2 x 3.7 cm (CC by AP by transverse). The pigtail catheter that had migrated out of the collection has been completely removed. Again seen is enlargement and inflammatory changes of the adnexa, left greater than right. There is gas medial to the left adnexa, new since the prior. The margins of the collection are ill-defined but measure approximately 10.9 x 4.9 x 6.6 cm, previously 6.9 x 4.2 x 5.7 cm (transverse by CC by AP). OSSEOUS STRUCTURES: Moderate degenerative disc disease is present at L3-4. CT/CT abdomen pelvis wo IV con IMPRESSION: Increasing size of presumed abscess in the cul-de-sac and gas. Increasing size of left adnexal collection including a multicystic ovary, fluid, and gas that was previously described as a probable tubo-ovarian abscess. Prior MRI stated that underlying neoplasm is not ruled out. Right adnexal changes concerning for tubo-ovarian abscess are stable. Small loculated left pleural effusion is stable. There is increased density in the dependent portion of the right lung base that probably represents atelectasis and pleural fluid, increased since the prior. Underlying pneumonia is not ruled out. Stable small pericardial effusion. Stable moderate hydronephrosis, likely secondary to inflammatory changes in the pelvis. Fleischner guidelines were followed. Electronically signed by: Raulito Pillai MD 10/22/2025 03:02 PM [facility]
--- NOTE | ~2025-10-22 | CT_ITS ---
EXAMINATION: CT HEAD WITHOUT CONTRAST CLINICAL INFORMATION: Altered mental status. COMPARISON: 07/06/2024. TECHNIQUE: Contiguous axial imaging was performed from the skull base to vertex without intravenous administration of contrast. This CT examination was performed using dose optimization techniques as appropriate, variously including the following: *Automated exposure control *Adjustment of mA and/or kV according to patient size (this includes techniques or standardized protocols for targeted exams where dose is matched to indication/reason for exam; i.e. extremities or head) *Use of iterative reconstruction technique FINDINGS: There is no evidence of intracranial hemorrhage or extra-axial fluid collection. There is no mass effect, or edema. No CT evidence of acute territorial infarct. Ventricles, sulci, and cisterns are normal in size and configuration for patient age. No hydrocephalus. No midline shift. Negative hyperdense MCA sign. Negative insular ribbon sign. No significant white matter attenuation abnormality. Normal pituitary. Globes and orbital contents image normally. No extracranial soft tissue abnormalities. The paranasal sinuses, mastoid air cells, and tympanic cavities are normally aerated. No suspicious bony abnormalities. There are no acute fractures evident. CT/CT head/brain wo IV con IMPRESSION: No acute intracranial abnormality. Electronically signed by: Lexa Lei MD 10/22/2025 02:44 PM [facility]
--- NOTE | ~2025-10-22 | XR_ITS ---
EXAMINATION: XR CHEST CLINICAL INFORMATION: AMS COMPARISON: October 03, 2025. TECHNIQUE: AP upright portable view of the chest was obtained. FINDINGS: Haziness in the mid to lower left hemithorax. Mild prominence of the interstitial markings. No pneumothorax. Cardiac mediastinal silhouette appears mildly prominent. Multilevel thoracic spondylosis. XR/XR chest 1V IMPRESSION: Left-sided pleural effusion, mild to moderate. Mild interstitial lung edema in the correct clinical settings. Electronically signed by: Franki Fulton MD 10/22/2025 01:13 PM [facility] [place]
--- NOTE | 2025-10-22 11:49 | ED.GENADULT ---
HPI - General Adult General Chief complaint: Altered Mental Status Stated complaint: confused Time Seen by Provider: 10/22/25 12:18 Source: patient and family ( daughter) Mode of arrival: ambulatory Limitations: no limitations History of Present Illness ED Provider: HPI narrative: 55-year-old female with a history of obesity, type 2 diabetes mellitus, obstructive sleep apnea, thyroid disease, and prior right lung cancer resection who was admitted 10/06 for a pelvic abscess and kidney infection requiring ICU care for hypotension. During that stay she received meropenem, vancomycin, and metronidazole, underwent IR-guided drainage of the pelvic abscess, and was discharged home on a 7-day course of amoxicillin/clavulanate plus metronidazole. Over the past 2 days the patient has developed worsening confusion, fever, and tachycardia. Family notes she was ?saying things that did not make sense? beginning yesterday. She required assistance to ambulate to the bathroom and was noted to have an unsteady gait. She reports recent onset of copious diarrhea ( pouring out stool ) since starting antibiotics. She endorses right-sided back pain (consistent with her chronic sciatica) but no abdominal pain. She denies cough and rash. No new medications, alcohol, tobacco, or drug use. Home oxygen 2 L NC; baseline unchanged. Related Data Home Medications ?Medication ?Instructions ?Recorded ?Confirmed lisinopril 2.5 mg tablet 2.5 mg PO DAILY@1200 09/05/20 10/01/25 metformin 500 mg tablet,extended 1,000 mg PO BID 09/05/20 10/01/25 release 24 hr acetaminophen 650 mg 650 mg PO Q8H PRN Pain 04/24/21 10/01/25 tablet,extended release albuterol sulfate 90 mcg/actuation 2 puff inhalation QID PRN Wheezing 04/24/21 10/01/25 aerosol inhaler atorvastatin 40 mg tablet 40 mg PO BEDTIME 04/24/21 10/01/25 glipizide 5 mg tablet 10 mg PO BID 04/24/21 10/01/25 haloperidol 5 mg tablet 2.5 mg PO BID 04/24/21 10/01/25 bupropion HCl 300 mg 24 hr tablet, 300 mg PO DAILY 06/07/22 10/01/25 extended release aripiprazole 20 mg tablet 20 mg PO BEDTIME 09/24/22 10/01/25 aspirin 81 mg tablet,delayed 81 mg PO DAILY 09/24/22 10/01/25 release bupropion HCl 150 mg 24 hr tablet, 150 mg PO DAILY 09/24/22 10/01/25 extended release clonazepam 1 mg tablet (Klonopin) 1 mg PO BID PRN Anxiety 04/04/23 10/01/25 semaglutide 7 mg tablet (Rybelsus) 7 mg PO DAILY 12/15/24 10/01/25 loratadine 10 mg tablet 10 mg PO DAILY 02/01/25 10/01/25 montelukast 10 mg tablet 10 mg PO BEDTIME 02/01/25 10/01/25 pantoprazole 20 mg tablet,delayed 20 mg PO BID 02/01/25 10/01/25 release ascorbic acid (vitamin C) 250 mg 250 mg PO BID@1200,2100 02/11/25 10/01/25 tablet ferrous fumarate 324 mg (106 mg 324 mg PO DAILY 02/11/25 10/01/25 iron) tablet (Ferrocite) ipratropium 0.5 mg-albuterol 3 mg 3 ml inhalation QID PRN asthma 02/11/25 10/01/25 (2.5 mg base)/3 mL nebulization soln omega-3 fatty acids 1,000 mg 1,000 mg PO DAILY 02/11/25 10/01/25 capsule vit no.95-ferrous 1 tab PO DAILY 02/11/25 10/01/25 fumarate 28 mg-folic acid 800 mcg tablet () tramadol 50 mg tablet 50 mg PO Q8H PRN severe pain 02/11/25 10/01/25 baclofen 10 mg tablet 10 mg PO TID PRN muscle spasm 10/01/25 10/01/25 diclofenac sodium 1 % topical gel 2 g topical QID PRN pain 10/01/25 10/01/25 gabapentin 600 mg tablet 600 mg PO TID 10/01/25 10/01/25 levothyroxine 200 mcg/mL oral 400 mcg PO DAILY@0200 10/01/25 10/01/25 solution (Tirosint-Michelle) mometasone 100 mcg/actuation HFA 2 puff inhalation BID 10/01/25 10/01/25 aerosol inhaler (Asmanex HFA) tiotropium bromide 18 mcg capsule 1 cap inhalation DAILY 10/01/25 10/01/25 with inhalation device (Spiriva with HandiHaler) Previous Rx's ?Medication ?Instructions ?Recorded ondansetron 4 mg disintegrating 4 mg PO Q8H PRN nausea and 09/16/25 tablet vomiting #4 tabs amoxicillin 875 mg-potassium 1 tab PO Q12H 7 days #14 tabs 10/08/25 clavulanate 125 mg tablet metronidazole 500 mg tablet 500 mg PO Q12H 7 days #14 tabs 10/08/25 Allergies Allergy/AdvReac Type Severity Reaction Status Date / Time oxycodone (Percocet) Allergy Intermediate stomach Verified 10/22/25 11:52 pain SEASONAL ALLERGIES Allergy Unknown UNKNOWN Uncoded 09/16/25 09:13 Review of Systems Review of Systems: Only positives and pertinent negatives documented below; all others not discussed. Constitutional: Fever, lethargy. Neurologic: Confusion, disorganized speech, unsteady gait. Cardiovascular: Aware of fast heart rate. Respiratory: Denies cough; breathing comfortable on home O2. Gastrointestinal: Recent onset of copious diarrhea since starting antibiotics, denies abdominal pain. Skin: Denies rash. Constitutional: Constitutional: Reports as per [facility] Past Medical History Medical History Primary malignant neoplasm of left lower lobe of lung History of thyroid cancer Hx of radiation therapy Postoperative hypothyroidism Sciatica of right side Back pain Arthritis Anemia Anxiety On home oxygen therapy Incomplete right bundle branch block (RBBB) Uterine fibroid DANIEL (obstructive sleep apnea) Cervical cancer Schizoaffective disorder Pancreatitis Type 2 diabetes mellitus JESCIA positive Vitamin D deficiency Morbid obesity Sacroiliitis Multinodular goiter HLD (hyperlipidemia) COPD (chronic obstructive pulmonary disease) GERD (gastroesophageal reflux disease) Bipolar 1 disorder Hypercalcemia Goiter Surgical History History of lobectomy of lung History of tubal ligation History of cholecystectomy History of total thyroidectomy Family History Family History Father Bipolar 1 disorder Mother Diabetes mellitus Hypertension Hyperlipidemia COPD (chronic obstructive pulmonary disease) Paternal Aunt Breast cancer Sister Cervical cancer Social History Social History Household Members: Spouse and Children Household Members Other:: duplex Housing: Apartment Are you a primary hearing care practitioner to a significant other at home: No Do you presently have visiting nurse or other home services: No Alcohol intake: never Comment: Pt refusing bed alarm, agrees to ring call raza for assist. 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 HEENT: Mucous membranes very dry. Lungs: Non-labored respirations. Cardiac: Tachycardic. Abdomen: Mildly distended, nontender to palpation. Lumbar exam without midline tenderness, rashes and no CVA tenderness Skin: No rashes noted to the upper, lower extremities or the buttock area Neurologic: Alert but sluggish, somewhat disorganized speech; unsteady gait with assistance. Vital Signs: Vital Signs - 24 hr 10/22/25 11:51 10/22/25 13:39 10/22/25 14:35 Temperature 102.9 F H 98.6 F Pulse Rate 130 H 109 H 103 H Respiratory Rate 26 H 24 H 20 Blood Pressure 125/59 L 97/49 L 80/41 L Pulse Oximetry 93 97 88 L Oxygen Delivery Method Room Air Nasal Cannula Nasal Cannula Oxygen Flow Rate 2 3 10/22/25 14:42 10/22/25 14:49 10/22/25 15:10 Temperature Pulse Rate 102 H 99 100 Respiratory Rate Blood Pressure 80/42 L 79/41 L 101/53 L Pulse Oximetry Oxygen Delivery Method Oxygen Flow Rate BMI result Body Mass Index 33.4 Course Course Course Narrative: Rapid medical examination performed in triage by Sana Teague PA-C: Patient is a 55 year old assigned female at presenting to the emergency department with confusion. Patient's family member states that the patient is acting very confused. Detailed physical exam and review of systems are deferred to the ct tech. EKG, labs, imaging ordered. Patient placed back in the waiting room pending room availability and results. Reevaluation(s) Reevaluation #1: 1:25 PM 10/22/2025 (POLI RAMESH): Patient and daughter tell me that she became acutely confused with fever this morning. She has been taking her Flagyl upon discharge recently. She states she has numerous amounts of diarrhea since discharge. She was already tested for C diff which was negative but she has not ED test pending. I did receive sign-out at 13:00. I decided to start her on meropenem based off her ESBL positive urine and concern for infection. I am going to consider adding on oral vancomycin. She is still pending imaging. She does seem to be clinically improving with her confusion after IV Tylenol. 2:11 PM 10/22/2025 (POLI RAMESH): For pressures are gently trending down I do not see any prior adrenal insufficiency. I am going to give her albumin and reassess I did alert the ICU of the potential of worsening hypotension. 2:33 PM 10/22/2025 (POLI RAMESH): her blood pressure is in the mid 80s at this time I am going to start her on Levophed. Pending imaging I will discuss with our ICU attending Dr. Ro 3:05 PM 10/22/2025 (POLI DO): Pending CT scan of abdomen we will plan to admit her to our ICU. Focused exam for sepsis performed3:06 PM 10/22/2025 (POLI DO): 3:15 PM 10/22/2025 (POLI DO): given her inability to tolerate bed pans, new onset renal failure, hypotension on pressors I am going to place a Petty catheter at this time. She is to be admitted to ICU now. 4:02 PM 10/22/2025 (POLI DO): at this time the abscesses are increasing we do not have IR on the weekend and we also do not have any medical writer coverage. Patient agrees to be transferred to [facility]. We were notified that there are no medical ICU beds at [facility]. She will be better served at a tertiary center to manage her complicated medical conditions. 4:16 PM 10/22/2025 (POLI DO): accepted to [facility]ES - TECHNIQUE: Multidetector volumetric imaging was performed from the superior aspect of the liver through the pubic symphysis. Sagittal and coronal reformatted images were obtained on the technologist's workstation. This CT examination was performed using dose optimization techniques as appropriate, variously including the following: *Automated exposure control *Adjustment of mA and/or kV according to patient size (this includes techniques or standardized protocols for targeted exams where dose is matched to indication/reason for exam; i.e. extremities or head) *Use of iterative reconstruction technique FINDINGS: LUNG BASES: Again seen is a small loculated effusion in the left lung base There is a new density in the dependent portion of the right lower lobe that likely represents atelectasis and/or small effusion. Pneumonia is not completely excluded. Small pericardial effusion is similar to the prior. LIVER, GALLBLADDER, AND BILIARY TREE: The liver is normal in size, shape, and attenuation. No focal hepatic lesion or biliary ductal dilatation is present. The gallbladder is surgically absent with clips in the gallbladder fossa. PANCREAS: Unremarkable. SPLEEN: Unremarkable. ADRENAL GLANDS: Unremarkable. KIDNEYS AND URETERS: Moderate hydronephrosis probably related to inflammatory changes in the pelvis is stable. BLADDER: Unremarkable. GASTROINTESTINAL TRACT: The small and large bowel are unremarkable. The appendix is unremarkable. ABDOMINAL WALL: No significant hernia is appreciated. LYMPH NODES: Shotty periaortic lymph nodes are present in the abdomen and iliac fossa VASCULAR: Unremarkable. PELVIC VISCERA: Again seen is a fluid collection, now containing gas, in the cul-de-sac, along the dorsal surface of the uterus. The margins are somewhat ill-defined due to lack of IV contrast. The collection measures approximately 9.3 x 4.4 x 5.5 cm, previously 6.3 x 2.2 x 3.7 cm (CC by AP by transverse). The pigtail catheter that had migrated out of the collection has been completely removed. Again seen is enlargement and inflammatory changes of the adnexa, left greater than right. There is gas medial to the left adnexa, new since the prior. The margins of the collection are ill-defined but measure approximately 10.9 x 4.9 x 6.6 cm, previously 6.9 x 4.2 x 5.7 cm (transverse by CC by AP). OSSEOUS STRUCTURES: Moderate degenerative disc disease is present at L3-4. CT/CT abdomen pelvis wo IV con IMPRESSION: Increasing size of presumed abscess in the cul-de-sac and gas. Increasing size of left adnexal collection including a multicystic ovary, fluid, and gas that was previously described as a probable tubo-ovarian abscess. Prior MRI stated that underlying neoplasm is not ruled out. Right adnexal changes concerning for tubo-ovarian abscess are stable. Small loculated left pleural effusion is stable. There is increased density in the dependent portion of the right lung base that probably represents atelectasis and pleural fluid, increased since the prior. Underlying pneumonia is not ruled out. Stable small pericardial effusion. Stable moderate hydronephrosis, likely secondary to inflammatory changes in the pelvis. Fleischner guidelines were followed. Medications Administered Generic Name Dose Route Start Last Admin Trade Name Freq PRN Reason Stop Dose Admin Norepinephrine Bitartrate 8 mg in 250 mls @ 0 mls/hr 10/22/25 14:45 10/22/25 15:10 Levophed IVCONT 0.07 mcg/kg/min .Q0M RACHEL 12.68 mls/hr Protocol Titration Per Protocol Discontinued Medications Generic Name Dose Route Start Last Admin Trade Name Freq PRN Reason Stop Dose Admin Sodium Chloride 2,898 mls @ 2,898 mls/hr 10/22/25 12:32 10/22/25 16:03 Ns 30 ml/kg infuse over 1 hr (2898 ml) 10/22/25 13:31 Infused IV Infusion .Q1H STA Acetaminophen 1,000 mg in 100 mls @ 400 mls/hr 10/22/25 12:32 10/22/25 13:30 Ofirmev IV 10/22/25 12:46 Infused ONCE ONE Infusion Magnesium Sulfate 2 gm in 50 mls @ 150 mls/hr 10/22/25 12:37 10/22/25 13:30 Magnesium Sulfate/H2o IV 10/22/25 12:56 Infused ONCE ONE Infusion Albumin Human 100 mls @ 133.333 mls/hr 10/22/25 13:45 10/22/25 16:03 Kedbumin 25 % IV 10/22/25 15:29 Infused Q1H RACHEL Infusion Meropenem 1 gm 10/22/25 13:05 10/22/25 13:36 Meropenem 1 Gm Vial IVPUSH 10/22/25 13:06 1 gm ONCE ONE Administration Medical Decision Making Medical Decision Making MDM Narrative: 12:43 PM 10/22/2025 (Dr. Teo Mazariegos): Initial evaluation performed. Plan includes IV fluid resuscitation for suspected dehydration, antipyretic for fever, and antiemetic for nausea. Diagnostic work-up to assess for pneumonia, urinary tract infection, intra-abdominal source, and stool infection (cultures, imaging as indicated). Additional antibiotics may be required pending results. Diarrhea will not be treated symptomatically at this time. Fever, tachycardia, and altered mental status ? rule out sepsis (etiology to be determined). Plan: IV fluids for dehydration. Acetaminophen (or equivalent) for fever. Antiemetic for nausea. Laboratory studies including blood cultures, urine studies, and stool testing. Imaging (CXR; CT abdomen/pelvis) to evaluate for pulmonary or intra-abdominal source. Empiric antibiotics to be considered based on culture/imaging results. CT brain for reports of confusion toexclude WOODWORK SALVAGE INSPECTOR isues such as bleed or stroke Admission to hospital for ongoing management and monitoring given fever, tachycardia, and confusion with history of recent ICU stay for hypotension. Differential Diagnosis Differential Diagnoses: The differential diagnosis associated with the presentation includes Sepsis (secondary to intra-abdominal infection, urinary tract infection, pneumonia, or other source): Patient has fever, tachycardia, and altered mental status with recent history of pelvic abscess, kidney infection, and ICU admission for hypotension. These features are consistent with possible ongoing or recurrent infection and sepsis. Clostridioides difficile colitis: Recent exposure to multiple antibiotics and new onset of copious diarrhea raise concern for C. difficile infection, which can present with fever and systemic symptoms. Medication effect or adverse reaction: Altered mental status and diarrhea may be related to medication side effects or toxicity, especially in the context of polypharmacy and recent antibiotic use. Metabolic derangement (e.g., hypoglycemia, electrolyte disturbance): Acute changes in mental status and vital signs may be due to metabolic abnormalities, which are common in patients with diabetes and recent gastrointestinal losses. WOODWORK SALVAGE INSPECTOR infection (meningitis/encephalitis): Fever and confusion could be manifestations of central nervous system infection, though no focal neurologic deficits are reported. Other causes of delirium (e.g., hypoxia, dehydration, underlying malignancy, thyroid dysfunction): Delirium may be multifactorial, including contributions from hypoxia (history of DANIEL and home oxygen), dehydration (noted dry appearance and copious diarrhea), underlying malignancy, or thyroid disease. Admission/Observation Consideration of admission/observation: Escalation of care including admission/observation considered Lab Data MDM Lab Attestation statement: I reviewed the patient's lab results. 10/22/25 12:10 10/22/25 12:10 Labs: Lab Results 10/22/25 10/22/25 Range/Units 12:10 12:16 WBC 27.0 H (4.8-10.8) X10*3/uL RBC 3.13 L (4.20-5.50) X10*6/uL Hgb 8.2 L (12.0-16.0) g/dl Hct 23.9 L D (37.0-47.0) % MCV 76.4 L (80.0-98.0) fL MCH 26.2 L (27.0-33.0) pg MCHC 34.3 (31.0-35.0) g/dl RDW 15.9 (11.0-16.0) % Plt Count 440 H D (160-400) X10*3/uL MPV 9.8 (9.4-12.3) fL Immature Gran % (Auto) 1.2 H (0.0-0.4) % Neut % (Auto) 82.1 H (45-73) % Lymph % (Auto) 6.6 L (20-40) % Ingham % (Auto) 9.7 (2-11) % Eos % (Auto) 0.1 (0-4) % Baso % (Auto) 0.3 (0-2) % Lymph # (Auto) 1.8 (1.2-4.9) X10*3/uL Ingham # (Auto) 2.6 H (0.1-1.2) X10*3/uL Eos # (Auto) 0.0 (0.0-0.4) X10*3/uL Baso # (Auto) 0.1 (0.0-0.2) X10*3/uL Abs Immat Gran (auto) 0.33 H (0.00-0.03) X10*3/uL Absolute Neuts (auto) 22.2 H (2.0-8.3) x10*3/uL Absolute Nucleated RBC 0.000 (0.0-0.012) X10*3/uL Nucleated RBC % (auto) 0.0 (0.0-0.2) /100WBC Smear Tech's Comments VERIFIED VBG pH 7.53 H (7.32-7.43) VBG pCO2 26 mmHg VBG pO2 68 mmHg VBG HCO3 22 (22-26) mmol/L VBG O2 Saturation 94.0 % VBG Base Excess 1.3 mmol/L Sodium 129 L (135-145) mmol/L Potassium 3.7 (3.3-5.1) mmol/L Chloride 92 L (96-108) mmol/L Carbon Dioxide 21 L (22-29) mmol/L Anion Gap 20 (12-20) BUN 49 H (9-16) mg/dL Creatinine 4.59 H* (0.5-1.4) mg/dL Estim Creat Clear Calc 16.9 Estimated GFR 10 Random Glucose 185 H (60-115) mg/dL Lactic Acid 1.4 (0.5-2.0) mmol/L Calcium 8.4 D (8.4-10.2) mg/dL Magnesium 1.3 L* (1.6-2.6) mg/dL Total Bilirubin 0.4 (0.0-1.0) mg/dL AST 70 H (5-31) U/L ALT 25 (0-31) U/L Alkaline Phosphatase 128 H (39-117) U/L Total Creatine Kinase 1313 H (26-140) U/L Total Protein 7.4 (6.5-8.0) g/dL Albumin 3.6 (3.5-5.0) g/dL Procalcitonin 9.95 ng/mL Influenza Type A (PCR) NEGATIVE (Negative) Influenza Type B (PCR) NEGATIVE (Negative) RSV RNA Qual (PCR) NEGATIVE (Negative) SARS-CoV-2 RNA (RT-PCR) NEGATIVE (Negative) Independent Interpretation I performed an independent interpretation of an: EKG ( 125 beats per minute no QTC prolongation, no dysrhythmia, this is sinus tachycardia) Radiology Impression Discussion of test interpretation with radiology: I have reviewed the radiologist's reading. Independent Historian Clinical information obtained from an independent historian. History obtained from or confirmed by: Other ( daughter) External Record Review External record reviewed: Inpatient record Chronic Conditions Patient?s care impacted by: Cancer Critical Care Time Critical Care Time Critical Care Time: Yes Total Critical Care Time: 70 Attestation: Time is exclusive of separately billable procedures. Time includes: direct patient care, patient reassessment, coordination of patient care, interpretation of data (laboratory data, pulse oximetry, arterial blood gases and chest xrays), review of patient's medical records, medical consultation and documentation of patient care. Procedures excluded from critical care time: central intravenous line placement and electrocardiography. Discharge Plan Discharge Clinical Impression: Acute renal failure, Hypomagnesemia, Diarrhea, Fever, unspecified, Hypotension Patient Disposition: [facility] Transfer Details: [facility]
--- NOTE | 2025-10-22 11:50 | ECG_ITS ---
Test Reason : ams Blood Pressure : */* mmHG Vent. Rate : 125 BPM Atrial Rate : 125 BPM P-R Int : 150 ms QRS Dur : 70 ms QT Int : 302 ms P-R-T Axes : 71 -4 57 degrees QTcB Int : 435 ms Sinus tachycardia Low voltage QRS Septal infarct (cited on or before 16-Sep-2025) Abnormal ECG When compared with ECG of 06-Oct-2025 10:00, Vent. rate has increased by 51 bpm QRS duration has decreased Questionable change in initial forces of Anteroseptal leads Referred By: Sana Teague Electronically Signed By: ISIDRA SALAZAR MD
[2025-10-22 12:18] LABS: Hematocrit 23.9 % (37.0-47.0); Hemoglobin 8.2 g/dl (12.0-16.0); Imm Gran Abs Auto 0.33 X10*3/uL (0.00-0.03); Imm Gran Pct Auto 1.2 % (0.0-0.4); Lymphocytes Absolute Auto 1.8 X10*3/uL (1.2-4.9); MANUAL DIFF FLAG SCAN; Mean Corpuscular HGB Conc 34.3 g/dl (31.0-35.0); Mean Corpuscular Hemoglobin 26.2 pg (27.0-33.0); Mean Corpuscular Volume 76.4 fL (80.0-98.0); NRBC Abs Auto 0.000 X10*3/uL (0.0-0.012); NRBC Pct Auto 0.0 /100WBC (0.0-0.2); Platelet Count 440 X10*3/uL (160-400); Red Blood Count 3.13 X10*6/uL (4.20-5.50); SCAN SMEAR FLAG 1; White Blood Count 27.0 X10*3/uL (4.8-10.8)
[2025-10-22 12:20] LABS: VBG HCO3 22 mmol/L (22-26); VBG O2 % Saturation 94.0 %
--- NOTE | 2025-10-22 12:22 | PC.NURSE ---
patient presents to the ED with her daughter for increased confusion. patients daughter states that she was recently admitted for kidney infection. patient noted to be tachycardic, febrile. patient answers questions but is slow to answer. #20 placed in the RFA, labs obtained and sent. patients daughter states that patient had recent change to schizophrenia medications. patient skin noted to be dry but intact. patient had to use the bathroom, 2 assist to the bathroom due to unsteady gait, patient had large amount of liquid stool. unable to get sample due to urgency.
[2025-10-22 12:37] LABS: Alanine Aminotransferase 25 U/L (0-31); Albumin Level 3.6 g/dL (3.5-5.0); Alkaline Phosphatase 128 U/L (39-117); Anion Gap 20 (12-20); Aspartate Amino Transferase 70 U/L (5-31); Blood Urea Nitrogen 49 mg/dL (9-16); Calcium 8.4 mg/dL (8.4-10.2); Carbon Dioxide 21 mmol/L (22-29); Chloride 92 mmol/L (96-108); Creatinine Clr Calc Pharmacy 16.9; Estimated Glomerular Filt Rate 10; Magnesium 1.3 mg/dL (1.6-2.6); Potassium 3.7 mmol/L (3.3-5.1); Sodium 129 mmol/L (135-145); Total Protein 7.4 g/dL (6.5-8.0)
[2025-10-22 12:38] LABS: Venous Blood Gas Refer to POC result
[2025-10-22] MEDS: Magnesium Sulfate/H2O 2 GM/50 ML PIGGYBACK IV (12:53)
[2025-10-22 13:16] LABS: Resp Syncy Virus RNA Qual PCR NEGATIVE (Negative); SARS COV2 PCR INHOUSE NEGATIVE (Negative)
[2025-10-22] MEDS: Albumin Human 25 % 100 ML 133.33 ML IV (14:36)
--- NOTE | 2025-10-22 14:43 | PC.NURSE ---
secondary line start #18 in LAC. patient obtunded, awakes to verbal stimuli. patient answers questions but appears tired and falls back asleep. patient desat down to 88% on room air, currently on 3lNC. patient medicated per JAN, noted to be hypotensive despite fluid resuscitation. ED provider notified, patient placed on presser support, starting 0.05mcg/kg/hr. patient hr 102 normal sinus rhythm.
[2025-10-22 14:57] LABS: Procalcitonin 9.95 ng/mL
--- NOTE | 2025-10-22 15:11 | PC.NURSE ---
16 fr temp sensing urena placed, [id number] immediate output, urine dorian in color, sample collected off of port. patient noted to have another incident of diarrhea. noted to be pale green and watery. only enough for cdiff sample. patient is currently on presser support per MAR
[2025-10-22] MEDS: Albumin Human 25 % 100 ML 133.3 ML IV (15:24)
[2025-10-22 15:29] LABS: Appearance Urine Turbid; Glucose Urine UA Negative (Negative); PH 5.0 (5.0-9.0); Specific Gravity - Urine 1.015 (1.005-1.025); UMIC TRIGGER UACC YES
[2025-10-22 15:39] LABS: UACC Culture Trigger YES
--- NOTE | 2025-10-22 15:39 | PM.CCHP ---
History of Present Illness Date of Service: 10/22/25 Attending physician on admission: Emy Ro Chief Complaint: Encephalopathy Patient is a 55 Y F w/ bipolar disorder, diabetes mellitus, obesity c/b obstructive sleep apnea, prior thyroid cancer s/p resection, lung cancer, and recurrent abnormal uterine bleeding, and recent admission for pelvic abscess, presenting to ED on 10/22 w/ diarrhea and encephalopathy, found to be febrile and hypotensive necessitating vasopressors; ED work-up demonstrating worsening of pelvic abscesses, as well as acute renal insufficiency Review of Systems Review of Systems: Yes all other systems are reviewed and are negative [facility] Past Medical History Medical History Primary malignant neoplasm of left lower lobe of lung History of thyroid cancer Hx of radiation therapy Postoperative hypothyroidism Sciatica of right side Back pain Arthritis Anemia Anxiety On home oxygen therapy Incomplete right bundle branch block (RBBB) Uterine fibroid DANIEL (obstructive sleep apnea) Cervical cancer Schizoaffective disorder Pancreatitis Type 2 diabetes mellitus JESICA positive Vitamin D deficiency Morbid obesity Sacroiliitis Multinodular goiter HLD (hyperlipidemia) COPD (chronic obstructive pulmonary disease) GERD (gastroesophageal reflux disease) Bipolar 1 disorder Hypercalcemia Goiter Family History Family History Father Bipolar 1 disorder Mother Diabetes mellitus Hypertension Hyperlipidemia COPD (chronic obstructive pulmonary disease) Paternal Aunt Breast cancer Sister Cervical cancer Surgical History Surgical History History of lobectomy of lung History of tubal ligation History of cholecystectomy History of total thyroidectomy Social History Social History Household Members: Spouse and Children Household Members Other:: duplex Housing: Apartment Are you a primary child day care teacher to a significant other at home: No Do you presently have visiting nurse or other home services: No Alcohol intake: never Comment: Pt refusing bed alarm, agrees to ring call raza for assist. 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 Glucose (Glucose Gel 15 Gm Gel..Gram.) 15 gm PO Q15M PRN; Protocol PRN Reason: per Hypoglycemia Standing Ord. Norepinephrine Bitartrate (Levophed) 8 mg in 250 mls @ 0 mls/hr IVCONT .Q0M [facility]; Protocol Last Titration: 10/22/25 15:10 Dose: 0.07 mcg/kg/min, 12.68 mls/hr Acetaminophen (Ofirmev) 1,000 mg in 100 mls @ 400 mls/hr IV Q6H PRN PRN Reason: Fever Lactated Ringer's (Lr) 1,000 mls @ 999 mls/hr IV .Q1H1M [facility] Stop: 10/22/25 16:15 Insulin Human Lispro (Insulin Lispro 100 Unit/Ml 3 Ml Vial) 0 unit SUBCUT Q6H [facility]; Protocol Meropenem (Meropenem 1 Gm Vial) 1 gm IVPUSH Q24H [facility] Pharmacy Consult (Consult Rx Vancomycin Dosing) 1 each MISCELLANE DAILY PRN PRN Reason: Consult order Home Medications ?Medication ?Instructions ?Recorded ?Confirmed ?Last Taken ?Type lisinopril 2.5 mg tablet 2.5 mg PO DAILY@1200 09/05/20 10/01/25 10/01/25 History metformin 500 mg tablet,extended 1,000 mg PO BID 09/05/20 10/01/25 10/01/25 History release 24 hr acetaminophen 650 mg 650 mg PO Q8H PRN Pain 04/24/21 10/01/25 Unknown History tablet,extended release albuterol sulfate 90 mcg/actuation 2 puff inhalation QID PRN Wheezing 04/24/21 10/01/25 02/11/25 05:00 History aerosol inhaler atorvastatin 40 mg tablet 40 mg PO BEDTIME 04/24/21 10/01/25 10/01/25 History glipizide 5 mg tablet 10 mg PO BID 04/24/21 10/01/25 10/01/25 History haloperidol 5 mg tablet 2.5 mg PO BID 04/24/21 10/01/25 10/01/25 History bupropion HCl 300 mg 24 hr tablet, 300 mg PO DAILY 06/07/22 10/01/25 10/01/25 History extended release aripiprazole 20 mg tablet 20 mg PO BEDTIME 09/24/22 10/01/25 10/01/25 History aspirin 81 mg tablet,delayed 81 mg PO DAILY 09/24/22 10/01/25 10/01/25 History release bupropion HCl 150 mg 24 hr tablet, 150 mg PO DAILY 09/24/22 10/01/25 10/01/25 History extended release clonazepam 1 mg tablet (Klonopin) 1 mg PO BID PRN Anxiety 04/04/23 10/01/25 10/01/25 History semaglutide 7 mg tablet (Rybelsus) 7 mg PO DAILY 12/15/24 10/01/25 10/01/25 History loratadine 10 mg tablet 10 mg PO DAILY 02/01/25 10/01/25 10/01/25 History montelukast 10 mg tablet 10 mg PO BEDTIME 02/01/25 10/01/25 10/01/25 History pantoprazole 20 mg tablet,delayed 20 mg PO BID 02/01/25 10/01/25 10/01/25 History release ascorbic acid (vitamin C) 250 mg 250 mg PO BID@1200,2100 02/11/25 10/01/25 10/01/25 History tablet ferrous fumarate 324 mg (106 mg 324 mg PO DAILY 02/11/25 10/01/25 10/01/25 History iron) tablet (Ferrocite) ipratropium 0.5 mg-albuterol 3 mg 3 ml inhalation QID PRN asthma 02/11/25 10/01/25 10/01/25 History (2.5 mg base)/3 mL nebulization soln omega-3 fatty acids 1,000 mg 1,000 mg PO DAILY 02/11/25 10/01/25 10/01/25 History capsule vit no.95-ferrous 1 tab PO DAILY 02/11/25 10/01/25 10/01/25 History fumarate 28 mg-folic acid 800 mcg tablet () tramadol 50 mg tablet 50 mg PO Q8H PRN severe pain 02/11/25 10/01/25 10/01/25 History baclofen 10 mg tablet 10 mg PO TID PRN muscle spasm 10/01/25 10/01/25 10/01/25 History diclofenac sodium 1 % topical gel 2 g topical QID PRN pain 10/01/25 10/01/25 10/01/25 History gabapentin 600 mg tablet 600 mg PO TID 10/01/25 10/01/25 10/01/25 History levothyroxine 200 mcg/mL oral 400 mcg PO DAILY@0200 10/01/25 10/01/25 10/01/25 History solution (Tirosint-Michelle) mometasone 100 mcg/actuation HFA 2 puff inhalation BID 10/01/25 10/01/25 10/01/25 History aerosol inhaler (Asmanex HFA) tiotropium bromide 18 mcg capsule 1 cap inhalation DAILY 10/01/25 10/01/25 10/01/25 History with inhalation device (Spiriva with HandiHaler) Physical Exam Vital Signs: Vital Signs: Last Vital Signs Temp 99.1 F 10/22/25 15:15 Pulse 99 10/22/25 15:15 Resp 20 10/22/25 15:15 BP 105/59 L 10/22/25 15:15 Pulse Ox 97 10/22/25 15:15 O2 Del Method Nasal Cannula 10/22/25 15:15 O2 Flow Rate 2 10/22/25 15:15 BMI result Body Mass Index 33.4 Results Labs 10/22/25 12:10 10/22/25 12:10 Labs: Laboratory Results - last 24 hr 10/22/25 10/22/25 10/22/25 12:10 12:16 15:17 MCV 76.4 L MCH 26.2 L MCHC 34.3 RDW 15.9 Plt Count 440 H D MPV 9.8 Immature Gran % (Auto) 1.2 H Neut % (Auto) 82.1 H Lymph % (Auto) 6.6 L Blaine % (Auto) 9.7 Eos % (Auto) 0.1 Baso % (Auto) 0.3 Lymph # (Auto) 1.8 Blaine # (Auto) 2.6 H Eos # (Auto) 0.0 Baso # (Auto) 0.1 Abs Immat Gran (auto) 0.33 H Absolute Neuts (auto) 22.2 H Absolute Nucleated RBC 0.000 Nucleated RBC % (auto) 0.0 Smear Tech's Comments VERIFIED VBG pH 7.53 H VBG pCO2 26 VBG pO2 68 VBG HCO3 22 VBG O2 Saturation 94.0 VBG Base Excess 1.3 Anion Gap 20 Estim Creat Clear Calc 16.9 Estimated GFR 10 Random Glucose 185 H Lactic Acid 1.4 Calcium 8.4 D Magnesium 1.3 L* Total Bilirubin 0.4 AST 70 H ALT 25 Alkaline Phosphatase 128 H Total Creatine Kinase 1313 H Total Protein 7.4 Albumin 3.6 Procalcitonin 9.95 Urine Color Dark Yellow Urine Appearance Turbid Urine pH 5.0 Ur Specific [place] 1.015 Urine Protein 30 (1+) H Urine Glucose (UA) Negative Urine Ketones Trace Urine Blood Negative Urine Nitrite Negative Ur Leukocyte Esterase Large (3+) H Influenza Type A (PCR) NEGATIVE Influenza Type B (PCR) NEGATIVE RSV RNA Qual (PCR) NEGATIVE SARS-CoV-2 RNA (RT-PCR) NEGATIVE Imaging Radiologist's Impressions: Impressions Chest X-Ray 10/22/25 13:00 IMPRESSION: Left-sided pleural effusion, mild to moderate. Mild interstitial lung edema in the correct clinical settings. Electronically signed by: Franki Fulton MD 10/22/2025 01:13 PM [facility] Abdomen/Pelvis CT 10/22/25 14:15 IMPRESSION: Increasing size of presumed abscess in the cul-de-sac and gas. Increasing size of left adnexal collection including a multicystic ovary, fluid, and gas that was previously described as a probable tubo-ovarian abscess. Prior MRI stated that underlying neoplasm is not ruled out. Right adnexal changes concerning for tubo-ovarian abscess are stable. Small loculated left pleural effusion is stable. There is increased density in the dependent portion of the right lung base that probably represents atelectasis and pleural fluid, increased since the prior. Underlying pneumonia is not ruled out. Stable small pericardial effusion. Stable moderate hydronephrosis, likely secondary to inflammatory changes in the pelvis. Fleischner guidelines were followed. Electronically signed by: Raulito Pillai MD 10/22/2025 03:02 PM EST RP Head CT 10/22/25 14:15 IMPRESSION: No acute intracranial abnormality. Electronically signed by: Lexa Lei MD 10/22/2025 02:44 PM EST RP Assessment and Plan (1) Septic shock: Status: Acute (2) Pelvic abscess in female: Status: Resolved Plan Patient is a 55 Y F w/ bipolar disorder, diabetes mellitus, obesity c/b obstructive sleep apnea, prior thyroid cancer s/p resection, lung cancer, and recurrent abnormal uterine bleeding, and redcent admission for pelvic abscess, presenting to ED on 10/22 w/ diarrhea and encephalopathy, found to be febrile and hypotensive necessitating vasopressors; ED work-up demonstrating worsening of pelvic abscesses, as well as acute renal insufficiency N: encephalopathy, likely toxic-metabolic, to closely monitor CV: hypotension, c/f septic shock, norepinephrine gtt, wean as tolerated R: no acute issues GI: NPO while encephalopathic, otherwise advance diet as tolerated : pelvic abscesses, worsening; appreciate gynecology recommendations; acute renal insufficiency, to closely monitor renal indices/electrolytes H: no acute issues; to hold chemical DVT prophylaxis for possible procedural planning, mechanical devices ID: pelvic abscesses, empiric vanc/kojo; follow-up UA, BCx 10/22 E: diabetes mellitus, insulin sliding scale P: no acute issues
--- OUTSIDE RECORDS SUMMARY | 2025-10-22 16:20 | XMS_ITS | Encounter Summary ---
Author Organization [facility] Address [address] [place] [address] Care Team Providers Care Compounder Helper Name Role Phone Unavailable Primary Care Provider Unavailabl e Encounter Details Date Type Department Care Team (Late st Contact Info) Description 10/22/2025 4:20 PM EST Ancillary Procedure [facility] [address] [place] [phone] Provider, File Room Arrived Social History Tobacco Use Types Packs/Day Years Used Date Smoking Tobacco: Never Assessed Comments Unknown Sex and Gender Information Value Date Recorded Sex Assigned at Not on file Legal Sex Female 6:09 PM EST Gender Identity Not on file Sexual Orientation Not on file documented as of this encounter Plan of Treatment Upcoming Encounters Date Type Department Care Team (Late st Contact Info) Description 10/22/2025 6:50 PM EST Ancillary Procedure [facility] [address] [place] [phone] Provider, File Room Arrived 10/22/2025 6:50 PM EST Ancillary Procedure [facility] [address] [place] [phone] Provider, File Room Arrived documented as of this encounter Procedures Procedure Name Priority Date/Time Associated Diagnosis Comments CT ABDOMEN ARCHIVE FOR REFERENCE ONLY Routine 10/22/2025 4:18 PM EST documented in this encounter Results * CT Abdomen Archive for Reference Only (10/22/2025 4:18 PM EST) Narrative VAL - 10/22/2025 4:18 PM EST This study has been auto finalized and does not contain a result. us File Room Provider IMG DIGITIZE FILMS Final Resu lt VAL [phone] documented in this encounter Visit Diagnoses Not on filedocumented in this encounter
--- OUTSIDE RECORDS SUMMARY | 2025-10-22 16:20 | XMS_ITS | Encounter Summary ---
Author Organization [facility] Address [address] [place] [address] Care Team Providers Care Square Shear Operator Name Role Phone Unavailable Primary Care Provider Unavailabl e Encounter Details Date Type Department Care Team (Late st Contact Info) Description 10/22/2025 4:20 PM EST Ancillary Procedure [facility] [address] [place] [phone] Provider, File Room Arrived Social History Tobacco [...] Description 10/22/2025 6:50 PM EST Ancillary Procedure [facility] [address] [place] [phone] Provider, File Room Arrived 10/22/2025 6:50 PM EST Ancillary Procedure [facility] [address] [place] [phone] Provider, File Room Arrived documented as of this encounter Procedures Procedure Name Priority Date/Time Associated Diagnosis Comments EDWIN ARCHIVE FOR REFERENCE ONLY US Routine 10/22/2025 4:20 PM EST documented in this encounter Results * EDWIN Archive for reference only US (10/22/2025 4:20 PM EST) Narrative VAL - 10/22/2025 4:18 PM EST This order has been auto-finalized and does not contain a result. us File Room Provider IMG DIGITIZE FILMS Final Resu lt VAL [phone] documented in this encounter Visit Diagnoses Not on filedocumented in this encounter
--- OUTSIDE RECORDS SUMMARY | 2025-10-22 16:20 | XMS_ITS | Encounter Summary ---
Author Organization [facility] Address [address] [place] [address] Care Team Providers Care Steffen House Supervisor Name Role Phone Unavailable Primary Care Provider Unavailabl e Encounter Details Date Type Department Care Team (Late st Contact Info) Description 10/22/2025 4:20 PM EST Ancillary Procedure [facility] [address] [place] [phone] Provider, File Room Arrived Social History Tobacco [...] Description 10/22/2025 6:50 PM EST Ancillary Procedure [facility] [address] [place] [phone] Provider, File Room Arrived 10/22/2025 6:50 PM EST Ancillary Procedure [facility] [address] [place] [address] Provider, File Room Arrived documented as of this encounter Procedures Procedure Name Priority Date/Time Associated Diagnosis Comments CR CHEST ARCHIVE FOR REFERENCE ONLY Routine 10/22/2025 4:18 PM EST documented in this encounter Results * CR Chest Archive for Reference only (10/22/2025 4:18 PM EST) Narrative VAL - 10/22/2025 4:18 PM EST This study has been auto finalized and does not contain a result. us File Room Provider IMG DIGITIZE FILMS Final Resu lt VAL [phone] documented in this encounter Visit Diagnoses Not on filedocumented in this encounter
[2025-10-22 16:23] LABS: CDiff Gene PCR NEGATIVE (Negative)
--- OUTSIDE RECORDS SUMMARY | 2025-10-22 16:25 | XMS_ITS | Encounter Summary ---
Author Organization [facility] Address [address] [place] [address] Care Team Providers Care Absorption Operator Name Role Phone Unavailable Primary Care Provider Unavailabl e Encounter Details Date Type Department Care Team (Late st Contact Info) Description 10/22/2025 4:25 PM EST Ancillary Procedure [facility] [address] [place] [phone] Provider, File Room Arrived Social History Tobacco [...] Description 10/22/2025 6:50 PM EST Ancillary Procedure [facility] [address] [place] [phone] Provider, File Room Arrived 10/22/2025 6:50 PM EST Ancillary Procedure [facility] [address] [place] [phone] Provider, File Room Arrived documented as of this encounter Procedures Procedure Name Priority Date/Time Associated Diagnosis Comments CT HEAD ARCHIVE FOR REFERENCE ONLY Routine 10/22/2025 4:18 PM EST documented in this encounter Results * CT Head Archive for Reference Only (10/22/2025 4:18 PM EST) Narrative VAL - 10/22/2025 4:18 PM EST This study has been auto finalized and does not contain a result. us File Room Provider IMG DIGITIZE FILMS Final Resu lt VAL [phone] documented in this encounter Visit Diagnoses Not on filedocumented in this encounter
[2025-10-22] MEDS: Lactated Ringers 500 ML 999 ML IV (16:55)
--- NOTE | 2025-10-22 17:07 | PC.NURSE ---
report given to RN at [facility] ED. report given to lamonte glass for tx to [facility], patient has levophed running at 0.07mcg/kg/hr
--- OUTSIDE RECORDS SUMMARY | 2025-10-22 18:07 | XMS_ITS | Encounter Summary ---
Author Organization [facility] Address [address] [place] [address] Care Team Providers Care Civil Cad Tech Name Role Phone Unavailable Primary Care Provider Unavailabl e Reason for Visit * Reason Comments Abnormal Test Result Encounter Details Date Type Department Care Team (Late st Contact Info) Description 10/22/2025 6:07 PM EST - Present Emergency [facility] Emergency Department [address] [place] [phone] Jatinder German MD [address] [place] [address] Social History Tobacco Use Types Packs/Day Years Used Date Smoking Tobacco: Never Assessed Comments Unknown Sex and Gender Information Value Date Recorded Sex Assigned at Not on file Legal Sex Female 6:09 PM EST Gender Identity Not on file Sexual Orientation Not on file documented as of this encounter Last Filed Vital Signs Vital Sign Reading Time Taken Comments Blood Pressure 118/60 10/22/2025 6:42 PM EST Pulse 116 10/22/2025 6:38 PM EST Temperature 37.1 C (98.7 F) 10/22/2025 6:11 PM EST Respiratory Rate 18 10/22/2025 6:38 PM EST Oxygen Saturation 97% 10/22/2025 6:38 PM EST Inhaled Oxygen Concentration - - Weight 96.6 kg (212 lb 15.4 oz) 10/22/2025 6:11 PM EST Height - - Body Mass Index - - documented in this encounter ED Notes * Linda Myles RN - 10/22/2025 6:39 PM EST Incontinence care provided, loose BM, linens changed, hygenic needs met, BP stable att, offering nonew complaints, safety maintained, phleb at bedside for blood cx att Linda Myles RN 10/22/25 [id number] * Linda Myles RN - 10/22/2025 6:12 PM EST Pt to [facility], arrives to us as medical alert, intially presented to OSH for confusion, difficulty ambulating and just not acting herself, presented to OSH tahcycardic, febrile and hypotensive, pt arrives on levo, paused to see baseline pressure att, hx pelvic abscess got IV ABX from OSH, A&Ox4, able to answer questions appropiatly, neuros grossly intact, all appropriate staff at bedside, plan VS, labs, imaging Linda Myles RN 10/22/251814 documented in this encounter Plan of Treatment Upcoming Encounters Date Type Department Care Team (Late st Contact Info) Description 10/22/2025 6:50 PM EST Ancillary Procedure [facility] [address] [place] [phone] Provider, File Room Arrived 10/22/2025 6:50 PM EST Ancillary Procedure [facility] [address] [place] [phone] Provider, File Room Arrived Scheduled Orders Name Type Priority Associated Diagnoses Order Schedule Blood Culture Microbiology Routine Once for 1 Occurrences starting 10/22/2025 until 10/22/2025 Blood Culture Microbiology Routine Once for 1 Occurrences starting 10/22/2025 until 10/22/2025 Urinalysis with Reflex to Microscopic and Culture Lab Routine STAT for 1 Occurrences starting 10/22/2025 until 10/22/2025 Sodium, Urine, Random Lab Routine Onc e for 1 Occurrences starting 10/22/2025 until 10/22/2025 Potassium, Urine, Random Lab Routine Once for 1 Occurrences starting 10/22/2025 until 10/22/2025 Chloride, Urine, Random Lab Routine Once for 1 Occurrences starting 10/22/2025 until 10/22/2025 Creatinine, urine, random Lab Routine STAT for 1 Occurrences starting 10/22/2025 until 10/22/2025 Complete Blood Count, with Differential Lab Routine STAT for 1 Occurrences starting 10/22/2025 until 10/22/2025 Comprehensive Metabolic Panel Lab Routine STAT for 1 Occurrences starting 10/22/2025 until 10/22/2025 Lipase Lab Routine STAT for 1 Occurrences starting 10/22/2025 until 10/22/2025 INR Lab Routine STAT for 1 Occurrences starting 10/22/2025 until 10/22/2025 Lactate Level X 2 Lab STAT *Every 2 Hours for 2 Occurrences starting 10/22/2025 until 10/22/2025 Type and Screen Blood Bank STAT Once for 1 Occurrences starting 10/22/2025 until 10/22/2025 ABO Confirmation Blood Bank STAT Once for 1 Occurrences starting 10/22/2025 until 10/22/2025 APTT Lab Routine STAT for 1 Occurrences starting 10/22/2025 until 10/22/2025 Nasal Cannula (Supplemental Oxygen) Starting Rate: 0.5 LPM; Maximum Rate: 6 LPM; Maintain O2 Sat >/= (%): 90 Respiratory Care Routine Continuous unti l discontinued starting 10/22/2025 ECG 12 lead ECG STAT Once for 1 Occurrences starting 10/22/2025 until 10/22/2025 documented as of this encounter Procedures * The patient is currently admitted. The information in this section might not be complete until the patient is discharged. Procedure Name Priority Date/Time Associated Diagnosis Comments POCT GLUCOSE, FINGERSTICK (CHARGE) Routine 10/22/2025 6:12 PM EST documented in this encounter Results * POCT Glucose, Fingerstick (10/22/2025 6:12 PM EST) POC Glucose 96 65 - 99 mg/dL 10/22/2025 6:13 PM EST Blood specimen / Unknown 10/22/2025 6:12 PM EST 10/22/2025 6:13 PM EST us Jatinder German MD POINT OF CARE TEST ORDERABLE S Final Result HOSPITAL LAB See Below documented in this encounter Visit Diagnoses Not on filedocumented in this encounter Active and Recently Administered Medications Times are shown in EST. Scheduled Medication Order 10/20/2025 10/21/2025 10/22/2025 acetaminophen (TYLENOL) tablet 975 mg 975 mg, Oral, Once, On Sat10/22/25 at 1818, For 1 dose 1817 (Due) gabapentin (NEURONTIN) capsule 300 mg 300 mg, Oral, Once, On Sat10/22/25 at 1847, For 1 dose 1846 (Due) piperacillin-tazobactam (ZOSYN) 4.5 g in sodium chloride-MBP (NS) 100 mL IVPB-MBP 4.5 g, Intravenous, Administer over 60 Minutes, Once, On Sat10/22/25 at 1840, For 1 dose, All antimicrobials used at [facility] require an indication. Please complete the following documentation. Bacterial Infection Suspected, Type of Therapy: New Therapy, Indication: Intra-abdominal abscess 1839 (Due) documented in this encounter
--- OUTSIDE RECORDS SUMMARY | 2025-10-22 18:48 | XMS_ITS | Encounter Summary ---
Author Organization [employer] Address [address] [facility] [address] [place] [address] Care Team Providers Care Oven Operator Name Role Phone iLnda Murphy DO Primary Care Provider [phone] Reason for Visit * Reason Onset Date Comments Hospital Follow-up 10/12/2025 Encounter Details Date Type Department Care Team ([facility] st Contact Info) Description 10/12/[address] [facility] MEDICINE [address] [place] [address] Linda Murphy DO [address] [place] [address] Hospital Follow-up Social History Tobacco Use Types [...] from pt requesting a HDF appt. Hospital: [facility] Date of admission: 10/01 Discharge date: 10/08 Diagnosed: cyst, vomiting *Send message to [place] Clinical Care Coordinators documented in this encounter [...] blood pressure task No Colon Alvino Mona Patient has chronic kidney disease Care Plan Patient has chronic kidney disease No Elver De Oliveira Mona Patient has chronic kidney disease Care Plan Patient has chronic kidney disease No Colon Alvino Mona Weekly blood pressure [...] documented as of this encounter Care Teams Oven Operator Relationship Specialty Start Date End Date Linda Murphy DO [address] [place] [id number] PCP - General Family Medicine 11/24/12 documented as of this encounter
--- OUTSIDE RECORDS SUMMARY | 2025-10-22 18:48 | XMS_ITS | Encounter Summary ---
Author Organization [employer] Address [address] [facility] [address] [place] [address] Care Team Providers Care Electrician Shop Name Role Phone Linda Murphy DO Primary Care Provider [phone] Encounter Details Date Type Department Care Team ([facility] st Contact Info) Description 10/14/2025 Results Follow-Up [facility] [address] [place] [id number] Baldo Benitez MD [address] [place] [address] [place] VENOUS DUPLEX LE RT Social History [...] 5 9:13 AM EST) No Neri Yang, PharmD [...] chronic kidney disease No Colon Alvino Mona Patient has chronic [...] Plan Patient has chronic kidney disease No BarlowIvan viveros Weekly blood pressure task Care Plan Weekly blood pressure task No [facility] [place] Weekly blood pressure task Care Plan Weekly blood pressure task No [facility] [place] Patient has chronic kidney disease Care Plan Patient has chronic kidney disease No [place] Patient has chronic kidney disease Care Plan Patient has chronic kidney disease No [place], [place] Weekly blood pressure task Care Plan [...] documented as of this encounter Care Teams Electrician Shop Relationship Specialty Start Date End Date Linda Murphy DO [address] [place] [id number] PCP - General Family Medicine 11/24/12 documented as of this encounter
--- OUTSIDE RECORDS SUMMARY | 2025-10-22 18:48 | XMS_ITS | Encounter Summary ---
Author Organization [employer] Address [address] [facility] 7t [place] [address] Care Team Providers Care Building Maintenance Repairer Name Role Phone Linda Murphy DO Primary Care Provider [phone] Antionette Murphy PharmD Unavailable [phone] Reason for Visit * Reason Comments Med Refill Encounter Details Date Type Department Care Team ([facility] st Contact Info) Description 02/23/2024 Refill [facility] MEDICINE [address] [place] [address] Linda Murphy DO [address] [place] [address] Chronic obstructive pulmonary disease, unspecified COPD type [...] as of this encounter Care Teams Building Maintenance Repairer Relationship Specialty Start Date End Date Linda Murphy DO [address] [place] [address] PCP - General Family Medicine 11/24/12 Antionette Murphy PharmD [address] [place] [address] Pharmacist Internal Medicine 07/15/24 02/25/25 documented as of this encounter
--- OUTSIDE RECORDS SUMMARY | 2025-10-22 18:48 | XMS_ITS | Encounter Summary ---
Author Organization [employer] Address [address] [facility] [address] [place] [address] Care Team Providers Care Drupal Php Developer Name Role Phone Linda Murphy DO Primary Care Provider [phone] Antionette Murphy PharmD Unavailable [phone] Reason for Visit * Reason Onset Date Comments Medication Question 11/13/2023 Encounter Details Date Type Department Care Team ([facility] st Contact Info) Description 11/13/2023 Telephone [facility] MEDICINE [address] [place] [address] Linda Murphy DO [address] [place] [address] Medication Question Social History Tobacco Use Types [...] 11/08 Physical appointment. Please contact pt at [phone] documented in this encounter Plan of Treatment [...] documented as of this encounter Care Teams Drupal Php Developer Relationship Specialty Start Date End Date Linda Murphy DO [address] [place] [address] PCP - General Family Medicine 11/24/12 Antionette Murphy PharmD [address] [place] [address] Pharmacist Internal Medicine 07/15/24 02/25/25 documented as of this encounter
--- OUTSIDE RECORDS SUMMARY | 2025-10-22 18:48 | XMS_ITS | Encounter Summary ---
Author Organization [employer] Address [address] [place] [address] 7t [place] [address] Care Team Providers Care Wanigan Clerk Name Role Phone Linda Murphy DO Primary Care Provider [phone] DelNeri zavala PharmD Unavailable Unavail able Antionette Murphy PharmD Unavailable Reason for Referral * Imaging (Routine) - Canceled Specialty Diagnoses / Procedures Referred By Contlauren t Referred To Contact Radiology Diagnoses Hilar mass Procedures CT Chest w/o Contrast Nora Astudillo FNP [address] [place] [address] Phone: tel: fax: [facility] [address] [place] [phone] Phone: tel: fax: Referral ID Status Reason Start Date Expiration Date V isits Requested Visits Authorized [id number] Canceled 10/11/2023 10/10/2024 1 1 Encounter Details Date Type Department Care Team (Late st Contact Info) Description 10/11/2023 Orders Only [facility] [address] [place] [address] Nora Astudillo FNP [address] [place] [address] Hilar mass (Primary Dx) Social History Tobacco [...] documented as of this encounter Care Teams Wanigan Clerk Relationship Specialty Start Date End Date Linda Murphy DO [address] [place] [address] PCP - General Family Medicine 11/24/12 Neri Yang, Kaiden [address] [place] [address] Pharmacist Internal Medicine 11/23/22 10/17/23 Antionette Murphy PharmD [address] [place] [address] Pharmacist Internal Medicine 07/15/24 02/25/25 documented as of this encounter
--- OUTSIDE RECORDS SUMMARY | 2025-10-22 18:48 | XMS_ITS | Encounter Summary ---
Author Organization [employer] Address [address] [facility] 7[address] [place] [address] Care Team Providers Care Senior Unix Administrator Name Role Phone Linda Murphy DO Primary Care Provider DelNeri zavala PharmD Unavailable Unavail able Antionette Murphy PharmD Unavailable [phone] Reason for Visit * Reason Onset Date Comments Letter for School/Work 03/07/2023 Encounter Details Date Type Department Care Team ([facility] st Contact Info) Description 03/07/2023 Telephone [facility] MEDICINE [address] [place] [address] Linda Murphy DO [address] [place] [address] Letter for School/Work Social History Tobacco Use [...] mailed due to COVID Please contact at [phone] documented in this encounter Plan of Treatment [...] as of this encounter Care Teams Senior Unix Administrator Relationship Specialty Start Date End Date Linda Murphy DO [address] [place] [address] PCP - General Family Medicine 11/24/12 Neri Yang, PharmD [address] [place] [address] Pharmacist Internal Medicine 11/23/22 10/17/23 Antionette Murphy PharmD [address] [place] [address] Pharmacist Internal Medicine 07/15/24 02/25/25 documented as of this encounter
--- OUTSIDE RECORDS SUMMARY | 2025-10-22 18:48 | XMS_ITS | Encounter Summary ---
Author Organization [employer] Address [address] [facility] 7t [place] [address] Care Team Providers Care Crystalizer Tender Name Role Phone Linda Murphy DO Primary Care Provider DelNeri zavala PharmD Unavailable Unavail able Antionette Murphy PharmD Unavailable Reason for Visit * Reason Onset Date Comments letter michael lopez 07/26/2023 Encounter Details Date Type Department Care Team (Late st Contact Info) Description 07/26/2023 Telephone [facility] MEDICINE [address] [place] [address] Linda Murphy DO [address] [place], [place] [phone] letter michael lopez Social History Tobacco Use [...] to Medical side. Please contact pt at [phone] documented in this encounter Plan of Treatment [...] documented as of this encounter Care Teams Crystalizer Tender Relationship Specialty Start Date End Date Linda Murphy DO [address] [place] [address] PCP - General Family Medicine 11/24/12 Neri Yang, PharmD [address] [place] [phone] Pharmacist Internal Medicine 11/23/22 10/17/23 Antionette Murphy PharmD [address] [place] [address] Pharmacist Internal Medicine 07/15/24 02/25/25 documented as of this encounter
--- OUTSIDE RECORDS SUMMARY | 2025-10-22 18:48 | XMS_ITS | Encounter Summary ---
Author Organization [employer] Address [address] [facility] 7t [place] [address] Care Team Providers Care Sports Reporter Name Role Phone Linda Murphy DO Primary Care Provider [phone] Neri Yang PharmD Unavailable Unavail able Antionette Murphy PharmD Unavailable Reason for Visit * Reason Onset Date Comments Results 10/08/2023 Encounter Details Date Type Department Care Team ([facility] st Contact Info) Description 10/08/2023 Telephone [facility] MEDICINE [address] [place] [address] Linda Murphy DO [address] [place], [place] [phone] Results Social History Tobacco Use Types Packs/Day [...] yesterday 10/07/2023 but was transferred to the [facility]. documented in this encounter Plan of [...] documented as of this encounter Care Teams Sports Reporter Relationship Specialty Start Date End Date Linda Murphy DO [address] [place] [address] PCP - General Family Medicine 11/24/12 Neri Yang, PharmD [address] [place] [address] Pharmacist Internal Medicine 11/23/22 10/17/23 Antionette Murphy PharmD [address] [place] [address] Pharmacist Internal Medicine 07/15/24 02/25/25 documented as of this encounter
--- OUTSIDE RECORDS SUMMARY | 2025-10-22 18:48 | XMS_ITS | Encounter Summary ---
Author Organization [employer] Address [address] [place] [address] 7t [place] [address] Care Team Providers Care Director Software Development Name Role Phone Linda Murphy DO Primary Care Provider Neri Yang PharmD Unavailable Unavail able Antionette Murphy PharmD Unavailable Reason for Visit * Reason Comments Med Refill Encounter Details Date Type Department Care Team (Late st Contact Info) Description 07/08/2023 Refill [facility] MEDICINE [address] [place] [address] Linda Murphy DO [address] [place] [address] Pain Social History Tobacco Use Types Packs/Day [...] as of this encounter Care Teams Director Software Development Relationship Specialty Start Date End Date Linda Murphy DO [address] [place] [address] PCP - General Family Medicine 11/24/12 Neri Yang, PharmD [address] [place] [address] Pharmacist Internal Medicine 11/23/22 10/17/23 Antionette Murphy PharmD [address] [place] [address] Pharmacist Internal Medicine 07/15/24 02/25/25 documented as of this encounter
--- OUTSIDE RECORDS SUMMARY | 2025-10-22 18:48 | XMS_ITS | Encounter Summary ---
Author Organization [employer] Address [address] [facility] [address] 7[address] [place] [address] Care Team Providers Care Trimmer Machine Operator Name Role Phone Katherine Linda Primary Care Provider + [phone] Encounter Details Date Type Department Care Team (Latest Contact Info) Description 10/14/2025 Results Follow-Up [facility] [address] [place] [address] Baldo Benitez MD [address] [place] [address] CBC auto differential, Comprehensive Metabolic Panel Social [...] Care Plan Weekly blood pressure task No Gabby Barlowenys Weekly blood pressure task Care Plan Weekly blood pressure task No Barlow Lorenys Patient has chronic kidney disease Care Plan Patient has chronic kidney disease No Barlow Lorenys Patient has chronic kidney disease Care Plan Patient has chronic kidney disease No Ivan Barlow Weekly blood pressure task Care Plan Weekly blood pressure task No [facility] [place] Weekly blood pressure task Care Plan Weekly blood pressure task No [facility] [place] Patient has chronic kidney disease Care Plan Patient has chronic kidney disease No [place], [place] Patient has chronic kidney disease Care Plan Patient has chronic kidney disease No [place], [place] Weekly blood pressure task Care Plan [...] as of this encounter Care Teams Trimmer Machine Operator Relationship Specialty Start Date End Date Linda Murphy DO [address] [place] [address] PCP - General Family Medicine 11/24/12 documented as of this encounter
--- OUTSIDE RECORDS SUMMARY | 2025-10-22 18:48 | XMS_ITS | Encounter Summary ---
Author Organization [employer] Address [address] [facility] [address] 7[address] [place] [address] Care Team Providers Care Professor Of Kinesiology Name Role Phone Linda Murphy DO Primary Care Provider [phone] Encounter Details Date Type Department Care Team ([facility] Contact Info) Description 08/11/2025 Orders Only [facility] MEDICINE [address] [place] [address] Linda Murphy DO [address] [place] [address] Social History Tobacco Use Types Packs/Day Years [...] documented as of this encounter Care Teams Professor Of Kinesiology Relationship Specialty Start Date End Date Linda Murphy DO [address] [place] [address] PCP - General Family Medicine 11/24/12 documented as of this encounter
--- OUTSIDE RECORDS SUMMARY | 2025-10-22 18:48 | XMS_ITS | Encounter Summary ---
Author Organization [employer] Address [address] [facility] 7t [place] [address] Care Team Providers Care Flame Planer Name Role Phone Linda Murphy DO Primary Care Provider [phone] Dellogla Neri PharmD Unavailable Unavail able Antionette Murphy PharmD Unavailable Reason for Visit * Reason Comments Med Refill Encounter Details Date Type Department Care Team (Late st Contact Info) Description 04/10/2023 Refill [facility] [address] [place] [address] Linda Murphy DO [address] [facility] [address] Social History Tobacco Use Types Packs/Day Years [...] documented as of this encounter Care Teams Flame Planer Relationship Specialty Start Date End Date Linda Murphy DO [address] [place] [address] PCP - General Family Medicine 11/24/12 Neri Yang, PharmD [address] [place] [address] Pharmacist Internal Medicine 11/23/22 10/17/23 Antionette Murphy PharmD [address] [place] [address] Pharmacist Internal Medicine 07/15/24 02/25/25 documented as of this encounter
--- OUTSIDE RECORDS SUMMARY | 2025-10-22 18:48 | XMS_ITS | Encounter Summary ---
Author Organization [employer] Address [address] [place] [address] 7[address] [place] [address] Care Team Providers Care Gospel Worker Name Role Phone Linda Murphy DO Primary Care Provider Dellogla Neri PharmD Unavailable Unavail able Antionette Murphy PharmD Unavailable Reason for Visit * Reason Comments Med Refill Encounter Details Date Type Department Care Team ([facility] st Contact Info) Description 04/05/[address] [facility] PEDIAT[facility]ICS [address] [place] [address] Linda Murphy DO [address] [place] [address] Social History Tobacco Use Types Packs/Day Years [...] documented as of this encounter Care Teams Gospel Worker Relationship Specialty Start Date End Date Linda Murphy DO [address] [place] [address] PCP - General Family Medicine 11/24/12 Nrei Yang, PharmD [address] [place] [address] Pharmacist Internal Medicine 11/23/22 10/17/23 Antionette Murphy, EricD [address] [place] [address] Pharmacist Internal Medicine 07/15/24 02/25/25 documented as of this encounter
--- OUTSIDE RECORDS SUMMARY | 2025-10-22 18:48 | XMS_ITS | Clinical Summary ---
Author Organization [employer] Address [address] [place] [address] [address] [place] [address] Care Team Providers Care Bath Mixer Name Role Phone Linda Murphy DO Primary Care Provider [phone] Allergies Active Allergy Reactions Criticality Noted Date Comments Oxycodone Abdominal Pain High 05/04/2013 Other reaction(s): Stomach Pain Other Reaction(s): stomach pain Oxycodone-Acetaminophen 07/03/2024 Pollen Extract Unknown 10/20/2024 Medications clonazePAM (KlonoPIN) 1 MG tablet 1 tablet twice daily as needed with an additional 1/2 tablet if needed Active Tirosint-ROBERT 200 MCG/ML solution TAKE 2mLs (400mcg) BY MOUTH ONCE DAILY 023 Active naloxone (Narcan) 4 mg/0.1 mL nasal spray Administer 1 spray (4 mg) into affected nostril(s) if needed for opioid reversal. 2 each 3 024 Active ipratropium-albut kellen (Duo-Neb) 0.5-2.5 mg/3 mL nebulizer solutionIndicatio ns:Chronic obstructive pulmonary disease, unspecified COPD type (CMS/HCC) ([facility]) INHALE 1 AMPULE USING A NEBULIZER FOUR TIMES DAILY NEEDED FOR ASTHMA OR (for COPD) 180 mL 2 024 Active loratadine (Claritin) 10 MG tablet TAKE 1 TABLET BY MOUTH EVERY MORNING 30 tablet 11 5 4:00 PM EST 024 Active tiotropium (Spiriva HandiHaler) 18 MCG inhalation capsuleIndication s:Chronic obstructive pulmonary disease, unspecified COPD type (CMS/HCC) ([facility]) USE 1 CAPSULE FOR INHALATION ONCE A DAY DO NOT SWALLOW CAPSULE 30 capsule 11 025 Active Mometasone Furoate (Asmanex HFA) 100 MCG/ACT aerosol Inhale 2 Act (200 mcg) 2 times daily. 13 g 11 025 Active Ascorbic Acid (vitamin C) 250 [...] AT NOON 90 tablet 3 025 Active methocarbamol (Robaxin) 500 MG tablet Take 1 tablet by mouth every 6 (six) hours during the day. 024 Active Vit-Fe Fumarate-FA ( Vitamins) 28-0.8 MG tablet TAKE 1 TABLET BY MOUTH EVERYDAY AT NOON 90 tablet 3 025 Active montelukast (Singulair) 10 MG tablet TAKE 1 TABLET BY MOUTH EVERY EVENING 90 tablet 3 5 4:00 PM EST 025 Active lidocaine (Lidoderm) 5 % patchIndications: Right thigh pain Apply 1 patch topically if needed each day for mild pain. Remove & discard patch within 12 hours or as directed by MD. 30 patch 3 025 Active Ventolin HFA 108 (90 Base) MCG/ACT inhalerIndication s:Chronic obstructive pulmonary disease, unspecified COPD type ([facility]/HCC) ([facility]) INHALE 2 PUFFS BY MOUTH EVERY 4 HOURS NEEDED FOR WHEEZING OR SHORTNESS OF BREATH 18 g 2 5 3:09 PM EST 025 Active Diclofenac Sodium 1 % gel Apply 2 g topically if needed in the morning, at noon, in the evening, and at bedtime (pain). 150 g 3 025 Active Aspirin Low Dose 81 MG EC tabletIndications :Type 2 diabetes mellitus with other specified complication, unspecified whether prison insulin use ([facility]) TAKE 1 TABLET BY MOUTH AT BEDTIME 90 tablet 1 025 Active gabapentin (Neurontin) 600 MG tablet TAKE 1 TABLET BY MOUTH THREE TIMES DAILY 90 tablet 3 5 3:09 PM EST Active Alcohol Swabs (Alcohol Prep) 70 % padsIndications:T ype 2 diabetes mellitus without complication, without long-term current use of insulin ([facility]) USE EVERY DAY UP TO TWICE DAILY 100 each 11 Active TRUEplus Lancets 33G miscIndications:T ype 2 diabetes mellitus without complication, without long-term current use of insulin ([facility]) USE TO TEST BLOOD SUGAR UP TO TWICE DAILY 100 each 11 Active glucose blood (FREESTYLE LITE) test stripIndications: Type 2 diabetes mellitus without complication, without long-term current use of insulin ([facility]) USE TO TEST BLOOD SUGAR UP TO TWICE DAILY 100 strip 11 Active ferrous sulfate 325 (65 Fe) MG EC tablet TAKE 1 TABLET BY MOUTH EVERY DAY. DO NOT BREAK, CRUSH, DISSOLVE OR CHEW 30 tablet 11 5 4:00 PM EST Active metFORMIN XR (Glucophage-XR) 500 MG 24 hr tabletIndications :Type 2 diabetes mellitus without complication, without long-term current use of insulin ([facility]) Take 2 tablets (1,000 mg) by mouth with breakfast and with evening meal. Do not crush, chew, or split. 360 tablet 1 Active Blood Glucose Monitoring Suppl (FreeStyle Lite) deviceIndications :Type 2 diabetes mellitus without complication, without long-term current use of insulin ([facility]) Inject 1 each under the skin 2 times daily. Use to test blood sugar twice daily, as directed 1 each Active atorvastatin (Lipitor) 40 MG tablet TAKE 1 TABLET BY MOUTH AT BEDTIME 30 tablet 5 5 4:00 PM EST 025 Active semaglutide (Rybelsus) 7 MG tabletIndications :Type 2 diabetes mellitus without complications (HCC) TAKE 1 TABLET BY MOUTH EVERY MORNING 30 MINUTES BEFORE A MEAL 30 tablet 5 5 4:00 PM EST 025 Active glipiZIDE (Glucotrol) 5 MG tablet [...] 10 days. 30 tablet 025 2024 Active docusate sodium (Colace) 100 MG capsule Take 1 capsule (100 mg) by mouth 2 times daily. 60 capsule 2 5 4:00 PM EST Active baclofen (Lioresal) 10 MG tablet TAKE 1 TABLET BY MOUTH THREE TIMES DAILY IN THE MORNING, AT NOON, AND AT BEDTIME NEEDED FOR MUSCLE SPASMS 60 tablet 3 5 4:00 PM EST Active Emollient (Eucerin Advanced Repair) cream Apply 1 Application. topically 2 times daily. 454 g 3 Active ARIPiprazole (Abilify) 20 MG tablet Take 1 tablet (20 mg) by mouth Once per day. 30 tablet 5 4:00 PM EST Active buPROPion XL (Wellbutrin XL) 150 MG 24 hr tablet Take 1 tablet (150 mg) by mouth Once per day. 30 tablet 5 4:00 PM EST Active buPROPion XL (Wellbutrin XL) 300 MG 24 hr tablet Take 1 tablet (300 mg) by mouth Once per day. 30 tablet 5 4:00 PM EST Active hydrOXYzine pamoate (Vistaril) 50 MG capsuleIndication s:Anxiety Take 1 capsule (50 mg) by mouth if needed in the morning, at noon, and at bedtime for anxiety. 90 capsule 5 4:00 PM EST Active haloperidol (Haldol) 5 MG tablet Take 0.5 tablets (2.5 mg) by mouth 2 times daily. 30 tablet 5 4:00 PM EST Active buPROPion XL (Wellbutrin XL) 300 MG 24 hr tablet Take 1 tablet by mouth in the morning. 2024 Discontinued(R eorder (will not trigger notification to Pharmacy)) buPROPion XL (Wellbutrin XL) 150 MG 24 hr tablet Take 1 tablet by mouth in the morning. 2024 Discontinued(R eorder (will not trigger notification to Pharmacy)) haloperidol (Haldol) 5 MG tablet Take 0.5 tablets by mouth in the morning and at bedtime. 2024 Discontinued(R eorder (will not trigger notification to Pharmacy)) ARIPiprazole (Abilify) 20 MG tablet Take 1 tablet by mouth 1 (one) time each day. 2024 Discontinued(R eorder (will not trigger notification to Pharmacy)) hydrOXYzine pamoate (Vistaril) 50 MG capsule TAKE 1 CAPSULE BY MOUTH THREE TIMES DAILY NEEDED FOR ANXIETY 2024 Discontinued(R eorder (will not trigger notification [...] A MEAL 30 tablet 5 2024 Discontinued baclofen (Lioresal) 10 MG tablet Take 1 tablet (10 mg) by mouth if needed in the morning, at noon, and at bedtime for muscle spasms. 60 tablet 3 025 2024 Discontinued acetaminophen (Tylenol 8 Hour) [...] 7 days. 20 tablet 025 2024 Active Problems Problem Noted Date Diagnosed Date [...] pain mgmt prn -advised contact [facility] if sx change or worsen Leukocytosis [...] -re-referred to [facility] pharmacist for eval -cont statin and low-dose lisinopril daily -Cr/GFR nml Aug 2023 with nml urine microalbumin SEP 2022 -s/p optho eval Nov 2022 at [facility], review next visit -s/p nml monofilament MAY 2022 Allergic rhinitis 11/03/2015 Chronic bipolar disorder ([facility]/HCC) 11/03/2015 Assessment & Plan (01/28/2024 2:44 PM [...] instrumentation of the toenail - refer to senior energy consultant - TB UTD Plantar callus 08/26/2024 01/27/2025 [...] Encounters Date Type Department Care Team Description 10/22/2025 Orders Only GENERIC EXTERNAL DATA DEPARTMENT Provider, Generic External Data 10/18/2025 11:45 AM EST Office Visit [address] [address] Linda Murphy DO Diarrhea, unspecified type (Primary Dx); Anxiety 10/18/2025 Travel 10/17/[address] [place] [phone] Linda Murphy DO 10/14/2025 8:40 AM EST Office Visit [facility] [address] [place] [phone] Baldo Benitez MD Septic shock due to urinary tract infection (HCC) (Primary Dx); Acute kidney injury; Edema of right foot 10/14/2025 Results Follow-Up [facility] [address] [place] [phone] Baldo Benitez MD US VENOUS DUPLEX LE RT 10/14/2025 Results Follow-Up [facility] [address] [place] [phone] Baldo Benitez MD CBC auto differential, Comprehensive Metabolic Panel 10/14/2025 Orders Only [address] [address] Baldo Benitez MD 10/14/2025 Travel 10/12/2025 Patient Outreach [address] [address] Linda Murphy DO Transition Of Care (Tcm) (HDF- scheduled) 10/12/[address] [address] Linda Murphy DO Hospital Follow-up 10/04/2025 Results Follow-Up [address] [address] Asuncion Bailey MD CBC auto differential, Lactic Acid, Comprehensive Metabolic Panel, Additional followed-up results: 5 10/01/2025 9:00 AM EST [address] [place] [place] [address] Linda Murphy DO Pyelonephritis (Primary Dx); Type 2 diabetes mellitus without complication, without long-term current use of insulin (HCC) 10/01/2025 Orders Only GENERIC EXTERNAL DATA DEPARTMENT Provider, Generic External Data 10/01/2025 Travel 09/29/2025 Orders Only [address] [address] Asuncion Bailey MD 09/28/[address] [address] Linda Murphy DO Chart Prep 09/26/[address] [address] Linda Murphy DO Type 2 diabetes mellitus without complications (HCC) 09/20/2025 11:30 AM EST Office Visit [address] [address] Asuncion Bailey MD Pyelonephritis (Primary Dx); Nausea and vomiting, unspecified vomiting type; Leukocytosis, unspecified type; Multinodular goiter; Non-small cell cancer of left lung (CMS/HCC) (HCC) 09/20/2025 Travel 09/17/[address] [address] Linda Murphy DO Prior Authorization ([facility] PA: Asmanex HFA 100 MCG) 09/17/[address] [address] Linda Murphy DO Prior Authorization ([facility] PA: Spiriva HandiHaler) 09/16/2025 Orders Only GENERIC EXTERNAL DATA DEPARTMENT Provider, Generic External Data 09/15/[address] [address] Yaima Marquez RN Error (VOID this visit) 09/15/2025 Orders Only GENERIC EXTERNAL DATA DEPARTMENT Provider, Generic External Data 09/02/2025 Refill [facility] [address] [place] [address] Linda Murphy DO Type 2 diabetes mellitus without complication, without long-term current use of insulin ([facility]) 08/30/2025 Refill [facility] [address] [place] [address] Linda Murphy DO Type 2 diabetes mellitus without complication, without long-term current use of insulin ([facility]) 08/18/2025 Telephone [facility] [address] [place] [phone] No Lopez RN NCNS ARCHIVES TECHNICIAN RV today; Pt does not want to take Tramadol anymore 08/11/2025 Orders Only [facility] [address] [place] [address] Linda Murphy DO 08/09/2025 Refill [facility] [address] [place] [address] Linda Murphy DO 08/06/2025 Refill [facility] [address] [place] [address] Linda Murphy DO 08/04/2025 Refill [facility] [address] [place], [place] [phone] Linda Murphy DO Type 2 diabetes mellitus with other specified complication, unspecified whether prison insulin use ([facility]) 08/03/2025 Telephone [facility] [address] [place] [phone] No Lopez RN cancelled chronic group and ARCHIVES TECHNICIAN appts multiple times 07/29/2025 Telephone [facility] [address] [place] [phone] Linda Murphy DO telephone call; Reschedule ARCHIVES TECHNICIAN/Chronic pain group; Blood Sugar Problem 07/28/2025 Telephone [facility] [address] [place] [phone] No Lopez RN NCNS ARCHIVES TECHNICIAN RV today 07/27/2025 Refill [facility] [address] [place] [address] Linda Murphy DO Acute post-traumatic headache, not intractable from Last 3 Months Immunizations Immunization Administration [...] Mass Index 33.67 10/18/2025 12:05 PM EST Plan of Treatment Health Maintenance Due [...] Screening 07/20/2026 07/20/2025, 07/20/20 25 Tobacco Screening 10/18/2026 10/18/2025 HPV/Cotest 05/21/2027 05/21/2022, 05/11, 02/15/2022 DTaP/Tdap/Td Vaccines [...] Care Plan Weekly blood pressure task No [place], [place] Weekly blood pressure task Care Plan [facility] [place] Patient has chronic kidney disease Care Plan Patient has chronic kidney disease No [place], [place] Patient has chronic kidney disease Care Plan Patient has chronic kidney disease No [place], [place] Weekly blood pressure task Care Plan [...] chronic kidney disease No Robyn Glover [place] Procedures Procedure Name Priority Date/Time Associated Diagnosis Comments CT ABDOMEN PELVIS WO CONTRAST Routine 10/22/2025 2:[address] HEAD WO CONTRAST Routine 10/22/2025 2 :15 PM EST XR CHEST 1 VIEW Routine 10/22/2025 1:00 PM EST VENOUS BLOOD GAS Routine 10/22/2025 12:1 6 PM EST PROCALCITONIN Routine 10/22/2025 12:10 PM EST CREATINE KINASE, TOTAL Routine 12:10 PM EST SLIDE REVIEW Routine 10/22/2025 12:10 PM EST MAGNESIUM Routine 10/22/2025 12:10 PM EST COMPREHENSIVE METABOLIC PANEL Routine 10/22/2025 12:10 PM EST LACTIC ACID Routine 10/22/2025 12:10 PM EST CBC WITH AUTO DIFFERENTIAL Routine 10/22/2025 12:10 PM EST SARS COV2/INFLUENZA A/B AND RSV RNA QL NAAT Routine 10/22/2025 12:10 PM EST US VENOUS DUPLEX LE RT Routine 10:37 AM EST CBC WITH AUTO DIFFERENTIAL [...] 6:42 PM EST US PELVIS TRANSVAGINAL Routine 11:15 AM EST US PELVIS TRANSVAGINAL Routine 8:28 PM EST XR CHEST 1 VIEW [...] T4, FREE Routine 09/15/2025 11:17 AM EST HEPATITIS C AB W/REFL TO HCV RNA, [...] Recently Relevant to Health Maintenance Results * CT Head w/o Contrast (10/22/2025 2:15 PM EST) Anatomical Region Laterality Modality Head, Neck Computed Tomogra phy 10/22/2025 2:15 PM EST Narrative 10/22/2025 2:47 PM EST [address] [address] [address] Scan Report Signed Patient: Tisha Ruiz MR#: [id number] 61 : 1970 Acct:[id number] Age/Sex: 55 / F ADM Date: 10/22/25 Loc: HO.ED Attending Dr: Ordering Physician: Teo Mazariegos DO Date of Service: 10/22/25 Procedure(s): CT head/brain wo IV con Accession Number(s): [id number] cc: Linda Murphy DO; Teo Mazariegos DO Report Number: [id number]: Total DLP = 0.00 mGy-cm Reason for Exam: AMS EXAMINATION: CT HEAD WITHOUT CONTRAST CLINICAL INFORMATION: Altered mental status. COMPARISON: 07/06/2024. TECHNIQUE: Contiguous axial imaging was performed from the skull base to vertex without intravenous administration of contrast. This CT examination was performed using dose optimization techniques as appropriate, variously including the following: *Automated exposure control *Adjustment of mA and/or kV according to patient size (this includes techniques or standardized protocols for targeted exams where dose is matched to indication/reason for exam; i.e. extremities or head) *Use of iterative reconstruction technique FINDINGS: There is no evidence of intracranial [...] abnormalities. There are no acute fractures evident. CT/CT head/brain wo IV con IMPRESSION: No acute intracranial abnormality. Electronically signed by: Lexa Lei MD 10/22/2025 02:44 PM [facility] Dictated By: Lexa Lei MD Signed By: <Electronically signed by Lexa Lei MD in OV> 10/22/25 1444 DD/ 1415 TD/TT: 10/22/25 1439 Diet Supervisor: Procedure Note Donotuseinterpreter, Image - 10/22/[address] [address] [address] Scan Report Signed Patient: Asmita Ruzi#: [id number] 61 : 1970Acct:[id number] Age/Sex: 55 / FADM Date: 10/22/25 Loc: HO.ED Attending Dr: Ordering Physician: Teo Mazariegos DO Date of Service: 10/22/25 Procedure(s): CT head/brain wo IV con Accession Number(s): [id number] cc: Linda Murphy DO; Teo Mazariegos DO Report Number: [id number]: Total DLP = 0.00 mGy-cm Reason for Exam: AMS EXAMINATION: CT HEAD WITHOUT CONTRAST CLINICAL INFORMATION: Altered mental status. COMPARISON: 07/06/2024. TECHNIQUE: Contiguous axial imaging was performed from the skull base to vertex without intravenous administration of contrast. This CT examination was performed using dose optimization techniques as appropriate, variously including the following: *Automated exposure control *Adjustment of mA and/or kV according to patient size (this includes techniques or standardized protocols for targeted exams where dose is matched to indication/reason for exam; i.e. extremities or head) *Use of iterative reconstruction technique FINDINGS: There is no evidence of intracranial [...] abnormalities. There are no acute fractures evident. CT/CT head/brain wo IV con IMPRESSION: No acute intracranial abnormality. Electronically signed by: Lexa Lei MD 10/22/2025 02:44 PM [facility] Dictated By: Lexa Lei MD Signed By: <Electronically signed by Lexa Lei MD in OV> 10/22/25 1444 DD/ 1415 TD/TT: 10/22/25 1439 Diet Supervisor: [facility] External Provider IMG CT PROCEDURES Final Result * CT Abdomen Pelvis w/o Contrast (10/22/2025 2:15 PM EST) Only the most recent of2 resultswithin the time period is included. Anatomical Region Laterality Modality Body, Pelvis, Abdomen Computed T omography 10/22/2025 2:15 PM EST Narrative 10/22/2025 3:05 PM EST [address] [address] [address] Scan Report Signed Patient: Tisha Ruiz MR#: [id number] 61 : 1970 Acct:[id number] Age/Sex: 55 / F ADM Date: 10/22/25 Loc: HO.ED Attending Dr: Ordering Physician: Teo Mazariegos DO Date of Service: 10/22/25 Procedure(s): CT abdomen pelvis wo IV con Accession Number(s): [id number] cc: Linda Murphy DO; Teo Mazariegos DO Report Number: [id number]: Total DLP = 1778.62 mGy-cm Reason for Exam: recent pelvic abscess, lo back pain EXAMINATION: CT ABDOMEN AND PELVIS WITHOUT CONTRAST CLINICAL INFORMATION: recent pelvic abscess, low back pain, no IV contrast due to acute kidney injury COMPARISON: 10/08/2025 CT and 10/03/2025 MRI TECHNIQUE: Multidetector volumetric imaging was performed from the superior aspect of the liver through the pubic symphysis. Sagittal and coronal reformatted images were obtained [...] or head) *Use of iterative reconstruction technique FINDINGS: LUNG BASES: Again seen is a [...] 5.7 cm (transverse by CC by AP). OSSEOUS STRUCTURES: Moderate degenerative disc disease is present at L3-4. CT/CT abdomen pelvis wo IV con IMPRESSION: Increasing size of presumed abscess in [...] secondary to inflammatory changes in the pelvis. Fleischner guidelines were followed. Electronically signed by: Raulito Pillai MD 10/22/2025 03:02 PM [facility] Dictated By: Raulito Pillai MD Signed By: <Electronically signed by Raulito Pillai MD in OV> 10/22/25 1502 DD/ 1415 TD/TT: 10/22/25 1439 Diet Supervisor: Procedure Note Donotuseinterpreter, Image - 10/22/[address] [address] [address] Scan Report Signed Patient: Ayanna RuiznMR#: [id number] 61 : 1970Acct:[id number] Age/Sex: 55 / FADM Date: 10/22/25 Loc: HO.ED Attending Dr: Ordering Physician: Teo Mazariegos DO Date of Service: 10/22/25 Procedure(s): CT abdomen pelvis wo IV con Accession Number(s): [id number] cc: Linda Murphy DO; Teo Mazariegos DO Report Number: [id number]: Total DLP = 1778.62 mGy-cm Reason for Exam: recent pelvic abscess, lo back pain EXAMINATION: CT ABDOMEN AND PELVIS WITHOUT CONTRAST CLINICAL INFORMATION: recent pelvic abscess, low back pain, no IV contrast due to acute kidney injury COMPARISON: 10/08/2025 CT and 10/03/2025 MRI TECHNIQUE: Multidetector volumetric imaging was performed from the superior aspect of the liver through the pubic symphysis. Sagittal and coronal reformatted images were obtained [...] or head) *Use of iterative reconstruction technique FINDINGS: LUNG BASES: Again seen is a [...] 5.7 cm (transverse by CC by AP). OSSEOUS STRUCTURES: Moderate degenerative disc disease is present at L3-4. CT/CT abdomen pelvis wo IV con IMPRESSION: Increasing size of presumed abscess in [...] secondary to inflammatory changes in the pelvis. Fleischner guidelines were followed. Electronically signed by: Raulito Pillai MD 10/22/2025 03:02 PM EST RP Dictated By: Raulito Pillai MD Signed By: <Electronically signed by Raulito Pillai MD in OV> 10/22/25 1502 DD/ 1415 TD/TT: 10/22/25 1439 Diet Supervisor: [facility] External Provider IMG CT PROCEDURES Final Result * XR Chest 1 View (10/22/2025 1:00 PM EST) Only the most recent of3 resultswithin the time period is included. Anatomical Region Laterality Modality Chest Radiographic Rosaura ging 10/22/2025 1:00 PM EST Narrative 10/22/2025 1:16 PM EST [place] [address] XRay Report Signed Patient: Tisah Ruiz MR#: [id number] 61 : 1970 Acct:[id number] Age/Sex: 55 / F ADM Date: 10/22/25 Loc: HO.ED Attending Dr: Ordering Physician: Sana Teague Date of Service: 10/22/25 Procedure(s): XR chest 1V Accession Number(s): [id number] cc: Sana Teague; Linda Murphy DO Reason for Exam: AMS EXAMINATION: XR CHEST CLINICAL INFORMATION: AMS COMPARISON: October 03, 2025. TECHNIQUE: AP upright portable view of the chest was obtained. FINDINGS: Haziness in the mid to lower left hemithorax. Mild prominence of the interstitial markings. No pneumothorax. Cardiac mediastinal silhouette appears mildly prominent. Multilevel thoracic spondylosis. XR/XR chest 1V IMPRESSION: Left-sided pleural effusion, mild to moderate. Mild interstitial lung edema in the correct clinical settings. Electronically signed by: Franki Fulton MD 10/22/2025 01:13 PM EST RP Dictated By: Franki Dubon MD Signed By: <Electronically signed by Franki Nixon MD in OV> 10/22/25 1313 DD/ 1300 TD/TT: 10/22/25 1305 Diet Supervisor: Procedure Note Gonzalez, Image - 10/22/[address] [address] XRay Report Signed Patient: Ayanna RuiznMR#: [id number] 61 : 1970Acct:[id number] Age/Sex: 55 / FADM Date: 10/22/25 Loc: HO.ED Attending Dr: Ordering Physician: Sana Teague Date of Service: 10/22/25 Procedure(s): XR chest 1V Accession Number(s): [id number] cc: Sana Teague; Linda Murphy DO Reason for Exam: AMS EXAMINATION: XR CHEST CLINICAL INFORMATION: AMS COMPARISON: October 03, 2025. TECHNIQUE: AP upright portable view of the chest was obtained. FINDINGS: Haziness in the mid to lower left hemithorax. Mild prominence of the interstitial markings. No pneumothorax. Cardiac mediastinal silhouette appears mildly prominent. Multilevel thoracic spondylosis. XR/XR chest 1V IMPRESSION: Left-sided pleural effusion, mild to moderate. Mild interstitial lung edema in the correct clinical settings. Electronically signed by: Franki Fulton MD 10/22/2025 01:13 PM EST Dictated By: Franki Dubon MD Signed By: <Electronically signed by Franki Nixon MDin OV> 10/22/25 1313 DD/ 1300 TD/TT: 10/22/25 1305 Diet Supervisor: [facility] External Provider IMG XR PROCEDURES Final Result * (ABNORMAL) VENOUS BLOOD GAS (10/22/2025 12:16 PM EST) VBG pH 7.53(H) 7.32 - 7.43 [facility] Comment:METER #: [id number] additional_comment: Jas crockett VBG PCO2 26 mmHg [facility] Comment:METER #: [id number] additional_comment: Jas crockett VBG PO2 68 mmHg [facility] Comment:METER #: [id number] additional_comment: Jas crockett VBG Base Excess 1.3 mmol/L [facility] Comment:METER #: [id number] additional_comment: Jas crockett VBG HCO3 22 22 - 26 mmol/L [facility] Comment:METER #: [id number] additional_comment: Jas crockett O2 Sat, Kevan 94.0 % [facility] Comment:METER #: [id number] additional_comment: Jas crockett 10/22/2025 12:1 6 PM EST 10/22/2025 12:20 PM EST us Generic External Data Provider LAB BLOOD ORDERAB LES Final Result Performing Organization Address City/[facility]/ZIP Co de Phone Number [facility] [address] [place] [phone] * Slide Review (10/22/2025 12:10 PM EST) Only the most recent of2 resultswithin the time period is included. Slide Review VERIFIED [facility] 10/22/2025 12:1 0 PM EST 10/22/2025 12:13 PM EST us Generic External Data Provider LAB BLOOD ORDERAB LES Final Result Performing Organization Address [facility] Co de Phone Number [facility] [address] [place] [phone] * SARS-CoV-2 RNA, Influenza A/B, and RSV RNA, Ql NAAT (10/22/2025 12:10 PM EST) Influenza A PCR NEGATIVE Negative [facility] Influenza B PCR NEGATIVE Negative [facility] Resp Syncy Virus RNA Qual PCR NEGATIVE Negative [facility] SARS COV2 PCR NEGATIVE Negative [facility] Comment:All test results mus t be [...] use by authorized laboratories.Testing performed on the [employer] GeneXpert utilizingreal-time RT-PCR.All SARS CoV2 and positive influenza A/B results arereported to [facility]. 10/22/2025 12:1 0 PM EST 10/22/2025 12:33 PM EST Generic External Data Provider LAB MICROBIOLOGY - GENERAL ORDERABLES Final Result [facility] [address] [place] [phone] * Procalcitonin (10/22/2025 12:10 PM EST) Procalcitonin 9.95 ng/mL [facility] Comment: Procalcitonin (PCT) Reference Range:PCT greater than 2.0 ng/mL: A PCT level above 2.0 ng/mL onthe first day of ICU admission is associated with a highrisk for progression to severe sepsis and/or septic shock.PCT less than 0.5 ng/mL: A PCT level below 0.5 ng/mL on thefirst day of ICU admission is associated with a low risk forprogression to severe sepsis and/or septic shock.PCT levels below 0.5 ng/mL do not exclude an infection.Care must be taken in interpreting PCT results fromdifferent laboratories and methodologies.References:[employer]/Society of CriticalCare Medicine Consensus Conference Committee. Definitionsfor sepsis and organ failure and guidelines for the use ofinnovative therapies in sepsis. Crit Care Iym6268;20(6):864-874.Oliva Quan Paul IZQUIERDO, Harper H, et al. Calcitoninprecursors are reliable markers of sepsis in a medicalintensive care unit. Crit Care Med 2000;363:600-607.Cindi S, David K, Lior C, et al. Diagnosticvalue of procalcitonin, interleukin-6 and interleukin-8 incritically ill patients admitted with suspected sepsis. AMJ Respir Crit Care Med 2001;164:396-402.[place] Food and Drug Administration. 510(k) substantialequivalence determination decision summary for [facility] PCTLIA.http://www.accessdata.fda.fov/cdrh_docs/reviews/M384150.pdf.Published November 2004. Accessed April 2017. 10/22/2025 12:1 0 PM EST 10/22/2025 12:13 PM EST us Generic External Data Provider LAB BLOOD ORDERAB LES Final Result [facility] [address] [place] [phone] * (ABNORMAL) CBC auto differential (10/22/2025 12:10 PM EST) Only the most recent of5 resultswithin the time period is included. White Blood Count 27.0(H) 4.8 - 10.8 X10*3/uL [facility] Red Blood Count 3.13(L) 4.20 - 5.50 X10*6/uL [facility] Hemoglobin 8.2(L) 12.0 - 16.0 g/dl [facility] Hematocrit 23.9(L) 37.0 - 47.0 % [facility] Mean Corpuscular Volume 76.4(L) 80.0 - 98.0 fL [facility] Mean Corpuscular Hemoglobin 26.2(L) 27.0 - 33.0 pg [facility] Mean Corpuscular HGB Conc 34.3 31.0 - 35.0 g/dl [facility] Red Cell Distribution Width 15.9 11.0 - 16.0 % [facility] Platelet Count 440(H) 160 - 400 X10*3/uL [facility] Mean Platelet Volume 9.8 9.4 - 12.3 fL [facility] Neutrophils Percent Auto 82.1(H) 45 - 73 % [facility] Imm Gran Pct Auto 1.2(H) 0.0 - 0.4 % [facility] Lymphocytes Percent Auto 6.6(L) 20 - 40 % [facility] Monocytes Percent Auto 9.7 2 - 11 % [facility] Eosinophils Percent Auto 0.1 0 - 4 % [facility] Basophils Percent Auto 0.3 0 - 2 % [facility] NRBC Pct Auto 0.0 0.0 - 0.2 /100WBC [facility] Neutrophils Absolute Auto 22.2(H) 2.0 - 8.3 x10*3/uL [facility] Imm Gran Abs Auto 0.33(H) 0.00 - 0.03 X10*3/uL [facility] Lymphocytes Absolute Auto 1.8 1.2 - 4.9 X10*3/uL [facility] Monocytes Absolute Auto 2.6(H) 0.1 - 1.2 X10*3/uL [facility] Eosinophils Absolute Auto 0.0 0.0 - 0.4 X10*3/uL [facility] Basophils Absolute Auto 0.1 0.0 - 0.2 X10*3/uL [facility] NRBC Abs Auto 0.000 0.0 - 0.012 X10*3/uL [facility] 10/22/2025 12:1 0 PM EST 10/22/2025 12:13 PM EST us Generic External Data Provider LAB BLOOD ORDERAB LES Edited Result - Final [facility] [address] [place] [phone] * (ABNORMAL) Magnesium (10/22/2025 12:10 PM EST) Only the most recent of3 resultswithin the time period is included. Magnesium 1.3(LL) 1.6 - 2.6 mg/dL [facility] Comment:Critical value for t est(s): MAG Results called to and readback by: MARIO Person calling: CHRISTINABROCKJuanito Date: 10.22.25Time: 1237 10/22/2025 12:1 0 PM EST 10/22/2025 12:13 PM EST us Generic External Data Provider LAB BLOOD ORDERAB LES Final Result Performing Organization Address [facility] Co de Phone Number [facility] [address] [place] [phone] * Lactic Acid (10/22/2025 12:10 PM EST) Only the most recent of2 resultswithin the time period is included. Lactic Acid 1.4 0.5 - 2.0 mmol/L [facility] 10/22/2025 12:1 0 PM EST 10/22/2025 12:13 PM EST Generic External Data Provider LAB BLOOD ORDERAB LES Final Result Performing Organization Address [facility] Co de Phone Number [facility] [address] [place] [phone] * (ABNORMAL) Creatine Kinase, Total (10/22/2025 12:10 PM EST) Creatine Kinase Total 1,313(H) 26 - 140 U/L [facility] 10/22/2025 12:1 0 PM EST 10/22/2025 12:13 PM EST Generic External Data Provider LAB BLOOD ORDERAB LES Final Result Performing Organization Address [facility] Co de Phone Number [facility] [address] [place] [phone] * (ABNORMAL) Comprehensive Metabolic Panel (10/22/2025 12:10 PM EST) Only the most recent of4 resultswithin the time period is included. Sodium 129(L) 135 - 145 mmol/L [facility] Potassium 3.7 3.3 - 5.1 mmol/L [facility] Chloride 92(L) 96 - 108 mmol/L [facility] Carbon Dioxide 21(L) 22 - 29 mmol/L [facility] Anion Gap 20 12 - 20 [facility] Urea Nitrogen (BUN) 49(H) 9 - 16 mg/dL [facility] Creatinine, Serum 4.59(HH) 0.5 - 1.4 mg/dL [facility] Comment:Critical value for t est(s): CREA Results called to and readback by: MARIO Person calling: Bitdeli Date: 10.22.25Time: 1237 Creatinine Clr Calc Pharmacy 16.9 [facility] Comment:Provided height and weight: 170.18 cm,96.6 kg.eGFR (calculated from the MDRD study equation) and eCrCl(calculated from the Cockcroft-Gault equation) are based ondifferent parameters and may not yield comparable results.If eCrCl result is absurd, please check patient'sheight/weight. Estimated Glomerular Filt Rate 10 [facility] Comment:Chronic Kidney Disea se: Estimated GFR < 60 mL/min/1.16g1Tftkee Kidney Disease: Estimated GFR < 15 mL/min/1.73m2 Glucose 185(H) 60 - 115 mg/dL [facility] Calcium 8.4 8.4 - 10.2 mg/dL [facility] Bilirubin, Total 0.4 0.0 - 1.0 mg/dL [facility] Aspartate Amino Transferase 70(H) 5 - 31 U/L [facility] Alanine Aminotransferase 25 0 - 31 U/L [facility] Total Protein 7.4 6.5 - 8.0 g/dL [facility] Albumin Level 3.6 3.5 - 5.0 g/dL [facility] Alkaline Phosphatase 128(H) 39 - 117 U/L [facility] 10/22/2025 12:1 0 PM EST 10/22/2025 12:13 PM EST us Generic External Data Provider LAB BLOOD ORDERAB LES Final Result Performing Organization Address City/State/[facility] Co de Phone Number [facility] [address] [place] [phone] * US VENOUS DUPLEX LE RT (10/14/2025 10:37 AM EST) Anatomical Region Laterality Modality Abdomen Ultrasound 10/14/2025 10:3 7 AM EST Narrative 10/14/2025 11:13 AM EST [address] [address] Ultrasound Report Signed Patient: Tisha Ruiz MR#: [id number] 61 : 1970 Acct:[id number] Age/Sex: 55 / F ADM Date: 10/14/25 Loc: HO.US Attending Dr: Baldo Benitez MD Ordering Physician: Baldo Benitez MD Date of Service: 10/14/25 Procedure(s): US venous duplex LE RT Accession Number(s): [id number] cc: Linda Murphy DO; Baldo Benitez MD [...] 10/14/25 1111 DD/ 1037 TD/TT: 10/14/25 1059 Diet Supervisor: Procedure Note Donotuseinterpreter, Image - 10/14/2025 [place] [address] Ultrasound Report Signed Patient: Ayanna RuiznMR#: [id number] 61 : 1970Acct:[id number] Age/Sex: 55 / FADM Date: 10/14/25 Loc: .US Attending Dr: Baldo Benitez MD Ordering Physician: Baldo Benitez MD Date of Service: 10/14/25 Procedure(s): US venous duplex LE RT Accession Number(s): [id number] cc: Linda Murphy DO; Baldo Benitez MD [...] 10/14/25 1111 DD/ 1037 TD/TT: 10/14/25 1059 Diet Supervisor: us Baldo Benitez MD IMG US PROCEDURES Edited Result - Final * CT Abdomen Pelvis w/ Contrast (10/08/2025 1:34 PM EST) Only the most recent of2 resultswithin the time period is included. Anatomical Region Laterality Modality Body, Pelvis, Abdomen Computed T omography 10/08/2025 1:34 PM EST Narrative 10/08/2025 2:05 PM EST [place] [address] CT Scan Report Signed Patient: Tisha Ruiz MR#: [id number] [birth year] : 1970 Acct:[id number] Age/Sex: 55 / F ADM Date: 10/01/25 Loc: [facility] 484-[address]: Mindy Garay MD Ordering Physician: Mindy Garay MD Date of Service: 10/08/25 Procedure(s): CT abdomen pelvis w IV con Accession Number(s): [id number] cc: Mindy Garay MD; Linda Murphy DO Report Number: [id number]: Total DLP = 595.00 mGy-cm Reason for [...] by: Dillon Botello MD 10/08/2025 02:02 PM [facility] Dictated By: Dillon Botello MD Signed By: <Electronically signed by Dillon Botello MD in OV> 10/08/25 1402 DD/ 1334 TD/TT: 10/08/25 1347 Diet Supervisor: Procedure Note Donotuseinterpreter, Image - 10/08/[address] [place] [address] [address] Scan Report Signed Patient: Ayanna RuizMNR#: [id number] 61 : 1970Acct:[id number] Age/Sex: 55 / FADM Date: 10/01/25 Loc: [facility] 484-[address]: Mindy Garay MD Ordering Physician: Mindy Garay MD Date of Service: 10/08/25 Procedure(s): CT abdomen pelvis w IV con Accession Number(s): [id number] cc: Mindy Garay MD; Linda Murphy DO Report Number: [id number]: Total DLP = 595.00 mGy-cm Reason for [...] 10/08/25 1402 DD/ 1334 TD/TT: 10/08/25 1347 Diet Supervisor: us [facility] External Provider IMG CT PROCEDURES Final Result * CT drain peritoneum (10/04/2025 1:04 PM EST) Anatomical Region Laterality Modality Body Computed Tomogra phy 10/04/2025 1:04 PM EST Narrative 10/04/2025 5:10 PM EST [address] [address] [address] Scan Report Signed Patient: Tisha Ruiz MR#: [id number] [birth year] : 1970 Acct:[id number] Age/Sex: 55 / F ADM Date: 10/01/25 Loc: .ICU 261-[address]: Emy Ro MD Ordering Physician: Rex Rutledge MD Date of Service: 10/04/25 Procedure(s): CT drain peritoneum Accession Number(s): [id number] cc: Linda Murphy DO; Rex Rutledge MD Report Number: [id number]: Total DLP = 215.00 mGy-cm Reason for [...] obtained. Over an 018 wire, a 6 Cambodian dilator was positioned in the collection. Over an 035 guidewire, 6 Cambodian dilator was exchanged for an 8.5 Cambodian drainage catheter. Catheter was attached to external [...] by: Naomy Alan MD 10/04/2025 05:07 PM [facility] Dictated By: Naomy Alan MD Signed By: <Electronically signed by Naomy Alan MD in OV> 10/04/25 1707 DD/ 1304 TD/TT: 10/04/25 1519 Diet Supervisor: SALVADOR Procedure Note Donotuseinterpreter, Image - 10/05/[address] [place] [address] [address] Scan Report Signed Patient: Ayanna RuizMNR#: [id number] 61 : 1970Acct:[id number] Age/Sex: 55 / FADM Date: 10/01/25 Loc: .[facility] 261-[address]: Emy Ro MD Ordering Physician: Rex Rutledge MD Date of Service: 10/04/25 Procedure(s): CT drain peritoneum Accession Number(s): [id number] cc: Linda Murphy DO; Rex Rutledge MD Report Number: [id number]: Total DLP = 215.00 mGy-cm Reason for [...] obtained. Over an 018 wire, a 6 Cambodian dilator was positioned in the collection. Over an 035 guidewire, 6 Cambodian dilator was exchanged for an 8.5 Cambodian drainage catheter. Catheter was attached to external [...] by: Naomy Alan MD 10/04/2025 05:07 PM [facility] Dictated By: Naomy Alan MD Signed By: <Electronically signed by Naomy Alan MD in OV> 10/04/25 1707 DD/ 1304 TD/TT: 10/04/25 3889 Diet Supervisor: SALVADOR us [facility] External Provider IMG CT PROCEDURES Final Result * MR Abdomen w/ and w/o Contrast (10/03/2025 6:45 PM EST) Anatomical Region Laterality Modality Abdomen Magnetic Resonan ce 10/03/2025 6:45 PM EST Narrative 10/03/2025 6:47 PM EST [address] [address] Magnetic Resonance Report Signed Patient: Tisha Ruiz MR#: [id number] [birth year] : 1970 Acct:[id number] Age/Sex: 55 / F ADM Date: 10/01/25 Loc: .ICU 261-[address]: Emy Ro MD Ordering Physician: Emy Ro MD Date of Service: 10/03/25 Procedure(s): MR abdomen wo/w con Accession Number(s): [id number] cc: Linda Murphy DO; Emy Ro MD [...] PELVIC AND TRANSVAGINAL - 10/01/25 19:[address]/CO/SR - CT ABDOMEN PELVIS WITHOUT IV CONTRAST [...] nodes are present. Adnexal and pouch of Angel abnormalities are partially visualized, which are discussed on the accompanying pelvic MRI report. Visualized osseous structures are normal in appearance. IMPRESSION: 1. Loculated left pleural effusion. Infection can not be excluded. 2. Ykykx-wjeuepy-rnsa-left hydronephrosis and ureteral dilatation. 3. Presumably reactive retroperitoneal lymph nodes. Continued follow up is recommended to exclude underlying malignancy. This document has been electronically signed by: Abdirahman Hogue MD on 10/03/2025 18:45:14 Dictated By: Abdirahman Hogue MD Signed By: <Electronically signed by Abdirahman Hogue MD in OV> 10/03/251845 DD/ 44 TD/TT: 10/03/251844 Diet Supervisor: Procedure Note Donotuseinterpreter, Image - 10/03/2025 [place] [address] Magnetic Resonance Report Signed Patient: Ayanna RuiznMR#: [id number] 61 : 1970Acct:[id number] Age/Sex: 55 / FADM Date: 10/01/25 Loc: .ICU 261-[address]: Emy Ro MD Ordering Physician: Emy Ro MD Date of Service: 10/03/25 Procedure(s): MR abdomen wo/w con Accession Number(s): [id number] cc: Linda Murphy DO; Emy Ro MD [...] PELVIC AND TRANSVAGINAL - 10/01/25 19:[address]/CO/SR - CT ABDOMEN PELVIS WITHOUT IV CONTRAST [...] nodes are present. Adnexal and pouch of Angel abnormalities are partially visualized, which are discussed on the accompanying pelvic MRI report. Visualized osseous structures are normal in appearance. IMPRESSION: 1. Loculated left pleural effusion. Infection can not be excluded. 2. Knbgj-gkxzdpm-jnjs-left hydronephrosis and ureteral dilatation. 3. Presumably reactive retroperitoneal lymph nodes. Continued follow up is recommended to exclude underlying malignancy. This document has been electronically signed by: Abdirahman Hogue MD on 10/03/2025 18:45:14 Dictated By: Abdirahman Hogue MD Signed By: <Electronically signed by Abdirahman Hogue MD in OV> 10/03/251845 DD/ 44 TD/TT: 10/03/251844 Diet Supervisor: us [facility] External Provider IMG MRI PROCEDURES Final Result * MR Pelvis w/ and w/o Contrast (10/03/2025 6:42 PM EST) Anatomical Region Laterality Modality Body, Pelvis Magnetic Resonan ce 10/03/2025 6:42 PM EST Narrative 10/03/2025 6:44 PM EST [place] [address] Magnetic Resonance Report Signed Patient: Tisha Ruiz MR#: [id number] [birth year] : 1970 Acct:[id number] Age/Sex: 55 / F ADM Date: 10/01/25 Loc: .[facility] 261-[address]: Emy Ro MD Ordering Physician: Emy Ro MD Date of Service: 10/03/25 Procedure(s): MR pelvis wo/w con Accession Number(s): [id number] cc: Linda Murphy DO; Emy Ro MD Reason for Exam: L Adnexal Mass and Ileus CLINICAL HISTORY: L Adnexal Mass and Ileus MRI of the pelvis with and without intravenous contrast. Comparison: US/SR - US PELVIC AND TRANSVAGINAL - 10/02/25 07:45 EST US - US PELVIC AND TRANSVAGINAL - 10/01/25 19:[address]/CO/SR - CT ABDOMEN PELVIS WITHOUT IV CONTRAST - 10/01/25 12:07 EST Findings: Multi locular bilateral adnexal peripherally enhancing high T2 intensity foci are present, measuring 85 mm oblique transverse on the left, and 15 mm transverse oblique on the right. The uterus is within normal limits. There is a peripherally enhancing high T2 intensity debris containing focus within the pouch of [place] measuring 110 mm anteroposterior. Moderate diffuse fat [...] structures are normal in appearance. IMPRESSION: 1. Cvka-oypqijq-rafv-right adnexal lesions as described above, most suggestive of tubo-ovarian abscesses. Continued follow up is recommended to exclude underlying neoplasm. 2. Probable abscess within the pouch of Angel, Associated with secondary thickening of the rectum. Follow-up endoscopy is recommended to exclude underlying rectal neoplasm. 3. Nadfp-rqbztij-srsl-left hydronephrosis secondary to distal ureteral compression. This document has been electronically signed by: Abdirahman Hogue MD on 10/03/2025 18:42:57 Dictated By: Abdirahman Hogue MD Signed By: <Electronically signed by Abdirahman Hogue MD in OV> 10/03/251842 DD/ 41 TD/TT: 10/03/251841 Diet Supervisor: Procedure Note Donotuseinterpreter, Image - 10/03/2025 [place] [address] Magnetic Resonance Report Signed Patient: Asmita Ruiz#: [id number] 61 : 1970Acct:[id number] Age/Sex: 55 / FADM Date: 10/01/25 Loc: HO.ICU 261-[address]: Emy Ro MD Ordering Physician: Emy Ro MD Date of Service: 10/03/25 Procedure(s): MR pelvis wo/w con Accession Number(s): [id number] cc: Linda Murphy Rachel MD Reason for Exam: L Adnexal Mass and Ileus CLINICAL HISTORY: L Adnexal Mass and Ileus MRI of the pelvis with and without intravenous contrast. Comparison: US/SR - US PELVIC AND TRANSVAGINAL - 10/02/25 07:45 EST US - US PELVIC AND TRANSVAGINAL - 10/01/25 19:[address]/CO/SR - CT ABDOMEN PELVIS WITHOUT IV CONTRAST [...] structures are normal in appearance. IMPRESSION: 1. Klxe-ktsqxgt-lzij-right adnexal lesions as described above, most suggestive of tubo-ovarian abscesses. Continued follow up is recommended to exclude underlying neoplasm. 2. Probable abscess within the pouch of [place], Associated with secondary thickening of the rectum. Follow-up endoscopy is recommended to exclude underlying rectal neoplasm. 3. Sbtvo-wzxwaqe-mpgu-left hydronephrosis secondary to distal ureteral compression. This document has been electronically signed by: Abdirahman Hogue MD on 10/03/2025 18:42:57 Dictated By: Abdirahman Hogue MD Signed By: <Electronically signed by Abdirahman Hogue MD in OV> 10/03/251842 DD/ 41 TD/TT: 10/03/251841 Diet Supervisor: [facility] External Provider IMG MRI PROCEDURES Final Result * US Pelvis Transvaginal (10/02/2025 11:15 AM EST) Only the most recent of2 resultswithin the time period is included. Anatomical Region Laterality Modality Pelvis Ultrasound 10/02/2025 11:1 5 AM EST Narrative 10/02/2025 11:16 AM EST [address] [address] Ultrasound Report Signed Patient: Tisha Ruiz MR#: [id number] [birth year] : 1970 Acct:[id number] Age/Sex: 55 / F ADM Date: 10/01/25 Loc: .ICU 261-[address]: Emy Ro MD Ordering Physician: Earline Luu NP Date of Service: 10/02/25 Procedure(s): US pelvic and transvaginal Accession Number(s): [id number] cc: Linda Murphy DO; Earline Luu NP [...] OV> 10/02/25 1116 DD/ 1115 TD/TT: 10/02/25 1115 Diet Supervisor: Procedure Note Donotuseinterpreter, Image - 10/02/[address] [address] Ultrasound Report Signed Patient: Ayanna RuiznMR#: [id number] 61 : 1970Acct:[id number] Age/Sex: 55 / FADM Date: 10/01/25 Loc: .ICU 261-[address]: Emy Ro MD Ordering Physician: Earline Luu NP Date of Service: 10/02/25 Procedure(s): US pelvic and transvaginal Accession Number(s): [id number] cc: Linda Murphy DO; Earline Luu NP [...] OV> 10/02/25 1116 DD/ 1115 TD/TT: 10/02/25 1115 Diet Supervisor: [facility] External Provider IMG US PROCEDURES Edited Result - Final * (ABNORMAL) Urinalysis, Complete, with Reflex to Culture (10/01/2025 1:26 PM EST) Only the most recent of2 resultswithin the time period is included. Color Urine Yellow [facility] Appearance Urine Hazy [facility] PH 5.5 5.0 - 9.0 [facility] Glucose Urine UA Negative Negative mg/dL [facility] Urine Blood Negative Negative [facility] Specific [place] - Urine 1.015 1.005 - 1.025 [facility] Urine Protein Trace Neg-Trace mg/dL [facility] Urine Ketones Negative Negative mg/dL [facility] Nitrite Urine Negative Negative [facility] Leukocyte Esterase Urine Moderate (2+)(A) Negative [facility] RBC Urine 0-2 0 - 2 /HPF [facility] Urine WBC >50(A) 0 - 5 /HPF [facility] Urine Squamous Epithelial Cell 11-20 0 - 2 /HPF [facility] Urine Bacteria 4+ None Seen [facility] Hyaline Casts, Urine >20 0 - 2 /LPF [facility] 10/01/2025 1:26 PM EST 10/01/2025 1:28 PM EST Narrative [facility] - 10/01/2025 1:55 PM EST Urine, Clean Catch us Generic External Data Provider LAB URINE ORDERAB LES Final Result Performing Organization Address City/State/[facility] Co de Phone Number [facility] [address] [place] [phone] * (ABNORMAL) Complete Blood Count Manual Diff (10/01/2025 10:48 AM EST) White Blood Count 23.9(H) 4.8 - 10.8 X10*3/uL [facility] Red Blood Count 4.01(L) 4.20 - 5.50 X10*6/uL [facility] Hemoglobin 10.6(L) 12.0 - 16.0 g/dl [facility] Hematocrit 31.8(L) 37.0 - 47.0 % [facility] Mean Corpuscular Volume 79.3(L) 80.0 - 98.0 fL [facility] Mean Corpuscular Hemoglobin 26.4(L) 27.0 - 33.0 pg [facility] Mean Corpuscular HGB Conc 33.3 31.0 - 35.0 g/dl [facility] Red Cell Distribution Width 14.6 11.0 - 16.0 % [facility] Platelet Count 356 160 - 400 X10*3/uL [facility] Mean Platelet Volume 9.5 9.4 - 12.3 fL [facility] NRBC Pct Auto 0.0 0.0 - 0.2 /100WBC [facility] [facility] NRBC Abs Auto 0.000 0.0 - 0.012 X10*3/uL [facility] Neutrophils % Manual 82(H) 45 - 73 % [facility] Band Neutrophils Percent 0(L) 3 - 5 % [facility] Lymphocytes Percent Manual 9(L) 20 - 40 % [facility] Atypical Lymphs Percent Manual 1 0 - 6 % [facility] Monocytes Percent Manual 7 2 - 11 % [facility] BASOPHILS % MANUAL 1 0 - 2 % [facility] NEUTROPHILS ABSOLUTE MANUAL 19.6(H) 2.0 - 8.3 X10*3/uL [facility] LYMPHOCYTES ABSOLUTE MANUAL 2.2 1.2 - 4.9 X10*3/uL [facility] Atypical Lymph Absolute Manual 0.2 x10*3/uL [facility] MONOCYTES ABSOLUTE MANUAL 1.7(H) 0.1 - 1.2 X10*3/uL [facility] BASOPHILS ABSOLUTE MANUAL 0.2 0.0 - 0.2 X10*3/uL [facility] Platelet Estimate NORMAL NORMAL [facility] Large Platelet [facility] Platelet Morphology Comment NOTED [facility] RBC Morphology NOTED [facility] Tear Drop Cells 1+ (0-2) /OIF [facility] Toxic Vacuolation PRESENT [facility] Doerun Cells 1+ (0-2) /F [facility] 10/01/2025 10:4 8 AM EST 10/01/2025 10:53 AM EST us Generic External Data Provider LAB BLOOD ORDERAB LES Final Result Performing Organization Address [facility] Co de Phone Number [facility] [address] [place] [phone] * Beta-Hydroxybutyrate (10/01/2025 10:48 AM EST) Beta-Hydroxybut yrate 0.11 0.02 - 0.27 mmol/L [facility] 10/01/2025 10:4 8 AM EST 10/01/2025 10:53 AM EST Generic External Data Provider LAB BLOOD ORDERAB LES Final Result Performing Organization Address [facility] de Phone Number [facility] [address] [place] [address] [phone] * hCG, Total, Quantitative (10/01/2025 10:48 AM EST) HCG Quantitative <2 mIU/mL [facility] Comment:Weeks post LMP Appro ximate hCG(Last Menstrual Period) Range (mIU/ml)3 - 4 weeks 9 - 1304 - 5 weeks 75 - 2,6005 - 6 weeks 850 - 20,8006 - 7 weeks 4000 - 100,2007 - 12 weeks 11,500 - 289,33318 - 16 weeks 18,300 - 137,47067 - 29 weeks (2nd trimester) 1,400 - 53,55382 - 41 weeks (3rd trimester) 940 - [...] Final Result Performing Organization Address [facility] Co de Phone Number [facility] [address] [place] [address] [place] [phone] * Lipase (10/01/2025 10:48 AM EST) Only the most recent of2 resultswithin the time period is included. Pathologist [facility] Lipase 16 8 - 78 U/L [facility] 10/01/2025 10:4 8 AM EST 10/01/2025 10:53 AM EST us Generic External Data Provider LAB BLOOD ORDERAB LES Final Result [facility] [address] [place] [phone] * (ABNORMAL) POCT Hgb A1c (10/01/2025 9:13 AM EST) [facility] Hemoglobin A1C 8.7(A) 4.0 - 5.7 % QC Media Lot # [id number] Lot# Expiration Date [id number] Blood 10/01/2025 9:13 AM EST Linda Murphy DO POINT OF CARE TEST ENTER/JAME T ORDERABLES Final Result * (ABNORMAL) POCT Glucose (10/01/2025 9:09 AM EST) [facility] Glucose Blood, POC 303(A) 60 - 200 mg/dL QC Media Lot # [id number] Lot# Expiration Date Blood Capillary blood specimen / Unknown 10/01/2025 9:09 AM EST Linda Murphy DO POINT OF CARE TEST ENTER/JAME T ORDERABLES Final Result * (ABNORMAL) TSH with Reflex to Free T4 (09/29/2025 8:38 AM EST) Pathologist [facility] TSH reflex Free T4 42.32(H) 0.32 - 4.0 uIU/mL [facility] Blood 09/29/2025 8:38 AM EST 09/29/2025 8:38 AM EST Asuncion Bailey MD LAB BLOOD ORDERABLES Fin al Result Performing Organization Address City/[facility]/ZIP Co de Phone Number [facility] [address] [place] [phone] * (ABNORMAL) Alkaline phosphatase, isoenzymes (09/29/2025 8:38 AM EST) Alkaline Phosphatase 112 37 - 153 U/L [facility] Intestinal Isoenzymes 0(A) 1 - 24 % [facility] Bone Isoenzymes 32 28 - 66 % [facility] Liver Isoenzymes 68 25 - 69 % [facility] Placental Isoenzymes 0 <=0 % [facility] Macrohepatic Isoenzymes 0 <=0 % [facility] Comment:THIS TEST WAS PERFOR MED AT:[facility] [id number] [place] [address]JCCHWHRARTURO ROJSA MD,PHD Interpretation [facility] Blood Venous blood specimen / Unknown 09/29/2025 8:38 AM EST 09/29/2025 8:38 AM EST us Asuncion Bailey MD LAB BLOOD ORDERABLES Fin al Result Performing Organization Address [facility] Co de Phone Number [facility] [address] [place] [address] [phone] * (ABNORMAL) TSH (09/29/2025 8:38 AM EST) Only the most recent of2 resultswithin the time period is included. Thyroid Stimulating Hormone 42.32(H) 0.32 - 4.0 uIU/mL [facility] Comment:Note: A sustained T SH level above 2.5 uIU/mL may warrant further investigation. TSH 3rd Generation ([facility]) 09/29/2025 8:38 AM EST 09/29/2025 8:38 AM EST us Generic External Data Provider LAB BLOOD ORDERAB LES Final Result Performing Organization Address [facility] Co de Phone Number [facility] [address] [place] [address] [phone] * T4, Free (09/29/2025 8:38 AM EST) Only the most recent of2 resultswithin the time period is included. Free T4 (Free Thyroxine) 0.85 0.71 - 1.85 ng/dL [facility] 09/29/2025 8:38 AM EST 09/29/2025 8:38 AM EST us Generic External Data Provider LAB BLOOD ORDERAB LES Final Result Performing Organization Address [facility] Phone Number [facility] [address] [place] [address] [phone] * Amylase (09/29/2025 8:38 AM EST) Amylase 43 28 - 100 U/L [facility] Blood Venous blood specimen / Unknown 09/29/2025 8:38 AM EST 09/29/2025 8:38 AM EST Asuncion Bailey MD LAB BLOOD ORDERABLES Fin al Result Performing Organization Address City/[facility] Co de Phone Number [facility] [address] [place] [address] [phone] * XR Chest 2 Views (09/29/2025 8:14 AM EST) Only the most recent of2 resultswithin the time period is included. Anatomical Region Laterality Modality Chest Radiographic Rosaura ging 09/29/2025 8:14 AM EST Narrative 09/29/2025 8:37 AM EST [address] [address] XRay Report Signed Patient: Tisha Ruiz MR#: [id number] 61 : 1970 Acct:[id number] Age/Sex: 55 / F ADM Date: 09/29/25 Loc: [facility] Attending Dr: Asuncion Bailey MD Ordering Physician: Asuncion Bailey MD Date of Service: 09/29/25 Procedure(s): XR chest 2V Accession Number(s): [id number] cc: Asuncion Bailey MD Reason for Exam: [...] 09/29/25 0834 DD/ 0814 TD/TT: 09/29/25 0826 Diet Supervisor: Procedure Note Donotuseinterpreter, Image - 09/29/2025 [place] [address] XRay Report Signed Patient: Ayanna RuiznMR#: [id number] : 1970Acct:[id number] Age/Sex: 55 / FADM Date: 09/29/25 Loc: [facility] Attending Dr: Asuncion Bailey MD Ordering Physician: Asuncion Bailey MD Date of Service: 09/29/25 Procedure(s): XR chest 2V Accession Number(s): [id number] cc: Asuncion Bailey MD Reason for Exam: [...] MD Signed By: <Electronically signed by Franki Nixno MDin OV> 09/29/2534 DD/ 3 TD/TT: 09/29/25825 Diet Supervisor: us Asuncion Bailey MD IMG XR PROCEDURES Edited Result - Final * Culture, Urine, Routine (09/21/2025 1:00 AM EST) Only the most recent of2 resultswithin the time period is included. Urine Urine specimen obtained by clean catch procedure / Unknown 09/21/2025 1:00 AM EST 09/21/2025 11:13 AM EST Comment:[facility] Narrative [facility] - 09/23/2025 7:30 AM EST Escherichia coli Quant 50,000 to 100,000 cfu/mL Escherichia coli: Ampicillin >=32(R) Escherichia coli: Cefazolin (Urine) 2(S) Escherichia coli: Cefepime <=0.12(S) Escherichia coli: Ceftriaxone <=0.25(S) Escherichia coli: Ciprofloxacin <=0.06(S) Escherichia coli: Gentamicin <=1(S) Escherichia coli: Nitrofurantoin 32(S) Escherichia coli: Trimethoprim/Sulfamethoxazole <=20(S) Specimen Source: Urine clean catch us Asuncion Bailey MD LAB MICROBIOLOGY - GENER AL ORDERABLES Final Result [facility] [address] [place] [phone] * POCT Urinalysis (09/20/2025 12:00 PM [...] Media Lot # [id number] Lot# Expiration Date Urine (Urine, Random) 09/20/2025 12:00 PM EST us Asuncion Bailey MD POINT OF CARE TEST ENTER /EDIT ORDERABLES Final Result * Hepatic Function Panel (09/16/2025 9:34 AM EST) Pathologist [facility] Bilirubin, Direct 0.1 0.0 - 0.5 mg/dL [facility] 09/16/2025 9:34 AM EST 09/16/2025 9:39 AM EST us Generic External Data Provider LAB BLOOD ORDERAB LES Final Result [facility] [address] [place] [phone] * (ABNORMAL) Glucose, Whole Blood (09/16/2025 9:15 AM EST) Glucose, Whole Blood 333(H) 60 - 115 mg/dL [facility] Comment:METER #: [id number] 09/16/2025 9:15 AM EST 09/16/2025 9:19 AM EST us Generic External Data Provider LAB BLOOD ORDERAB LES Final Result [facility] [address] [place] [address] [phone] * (ABNORMAL) Thyroglobulin, LC/MS/MS (09/15/2025 11:17 AM EST) Thyroglobulin, LC/MS/MS 0.2(A) ng/mL [facility] Comment:Reference Range: Int act Thyroid 2.8-40.9 Athyrotic <0.1 Note: Abnormal flagging is based on the reference interval for patients with intact thyroid.This test was performed using the Johny Coulterchemiluminescent method. Values obtained fromdifferent assay methods cannot be usedinterchangeably. Thyroglobulin levels, regardlessof value, should not be interpreted as absoluteevidence of the presence or absence of disease. Thyroglobulin Comment See Below [facility] Comment:Thyroglobulin antibo dies (TGAB) interfere withthyroglobulin (TG) assays; therefore, TGAB assayshould always be performed in conjunction with aTG assay.For additional information, please refer tohttp://education.WineSimple/faq/JAN776(This link is being provided for informational/educational purposes only.)THIS TEST WAS PERFORMED AT:[facility] [place] [phone] DURANT MD 09/15/2025 11:1 7 AM EST 09/15/2025 11:17 AM EST us Generic External Data Provider LAB BLOOD ORDERAB LES Final Result [facility] [address] [place] [phone] * (ABNORMAL) Thyroblobulin, Tumor Marker w/Reflex (09/15/2025 11:17 AM EST) Pathologist [facility] Thyroglobulin Antibody <1 <=1 IU/mL [facility] Comment:This Thyroglobulin a ntibody test was performedusing the Johny Claudia Chemiluminescent method.Values obtained from different assay methods cannot beused interchangeably. Thyroglobulin antibody levels,regardless of value, should not be interpreted asabsolute evidence of the presence or absence ofdisease. Thyroglobulin, LC/MS/MS TNP [facility] Thyroglobulin Level 0.1(A) ng/mL [facility] Comment:Reference Range: Ath yrotic: <0.1 ng/mLReference range applies to differentiated thyroidcancer patients following treatment. The presence ofmeasurable thyroglobulin indicates the presence ofthyroglobulin-producing thyroid tissue. Clinicalcorrelation is advised.This Thyroglobulin test was performed using theZ[place] Chemiluminescent method. Valuesobtained from different assay methods cannot beused interchangeably. Thyroglobulin levels, regardlessof value, should not be interpreted as absoluteevidence of the presence or absence of disease.THIS TEST WAS PERFORMED AT:[facility] [place] [address]LJQPISWARTURO ROJAS MD,PHD 09/15/2025 11:1 7 AM EST 09/15/2025 11:17 AM EST Generic External Data Provider LAB BLOOD ORDERAB LES Final Result Performing Organization Address [facility] Co de Phone Number [facility] [address] [place] [address] [phone] * Thyroglobulin Antibodies (09/15/2025 11:17 AM EST) Thyroglobulin Antibodies <1 < or = 1 IU/mL [facility] Comment:THIS TEST WAS PERFOR MED AT:[facility] [address] [phone] DURANT MD 09/15/2025 11:1 7 AM EST 09/15/2025 11:17 AM EST us Generic External Data Provider LAB BLOOD ORDERAB LES Final Result Performing Organization Address [facility] de Phone Number [facility] [address] [place] [phone] * Albumin, Random Urine W/Creatinine (04/26/2025 11:11 AM EDT) Creatinine, Urine 52.62 mg/dL [facility] Microalbumin Urine 11.0 mg/L H [facility] Microalbum Creatinine Ratio Ur 20.9 <30 ug/mg cr [facility] Comment:Albumin/Creatinine R atio Reference Ranges: Normal: < 30 ug/mg creatinine Microalbuminuria: 30 - 300 ug/mg creatinineClinical Albuminuria: > 300 ug/mg creatinine Urine (Urine, Random) 04/26/2025 11:11 AM EDT 04/26/2025 12:56 PM EDT us Linda Murphy DO LAB URINE ORDERABLES Final R esult Performing Organization Address City/[facility]/ZIP Co de Phone Number [facility] [address] [place] [phone] * Hepatitis C Antibody with Reflex to HCV, RNA, Quantitative, Real-Time PCR (04/26/2025 11:11 AM EDT) Hepatitis C Antibody Nonreactive Nonreactive [facility] Comment:Antibodies to HCV no t detected; does not exclude early acuteHCV infection. Blood Venous blood specimen / Unknown 04/26/2025 11:11 AM EDT 04/26/2025 12:56 PM EDT us Linda Murphy DO LAB BLOOD ORDERABLES Final R esult Performing Organization Address City/[facility]/ZIP Co de Phone Number [facility] [address] [place] [phone] * HIV-1/2 Antigen and Antibodies, Fourth Generation, with Reflexes (04/26/2025 11:11 AM EDT) HIV AB/AG Nonreactive Nonreactive [facility] Comment:HIV-1 p24 Ag and/or HIV-1/HIV-2 Ab not detected.A test result that is nonreactive does not exclude thepossibility of exposure to or infection with HIV-1 and/orHIV-2. Nonreactive results in this assay for individualswith prior exposure to HIV-1 and/or HIV-2 may be due toantigen and antibody levels that are below the limit ofdetection of this assay.The Xt[employer] HIV Ag/Ab Combo assay result andsupplemental assay results should be interpreted inconjunction with the patient's clinical presentation,history and other laboratory results. If the results areinconsistent with clinical evidence, additional testing issuggested to confirm the result. Blood Venous blood specimen / Unknown 04/26/2025 11:11 AM EDT 04/26/2025 12:56 PM EDT us Linda Murphy DO LAB BLOOD ORDERABLES Final R esult [facility] [address] [place] [phone] * (ABNORMAL) Lipid Panel, Standard (04/26/2025 11:11 AM EDT) Triglycerides 161(H) <150 mg/dL [facility] Comment:Desirable Triglyceri de: less than 150 mg/dLBorderline High Triglyceride 150-199 mg/dLHigh Triglyceride: 200-499 mg/dLVery High Triglyceride: greater than or equal to 5OO mg/dL Cholesterol 139 <200 mg/dL [facility] Comment:Desirable Cholestero l: less than 200 mg/dLBorderline High Cholesterol: 200-239 mg/dLHigh Cholesterol: greater than 239 mg/dL LDL Cholesterol Calculated 64 <100 mg/dL [facility] Comment:Desirable LDL: less than 100 mg/dLNear Optimal/Above Optimal LDL: 110- 129 mg/dLBorderline High LDL: 130-159 mg/dLHigh LDL: 160-189 mg/dLVery High LDL: greater than or equal to 190 mg/dL HDL Cholesterol 43 >40 mg/dL [facility] Comment:Desirable HDL: great er than 40 mg/dL Note: This HDL assay may give artificially low results in patients with liver disease. Blood Venous blood specimen / Unknown 04/26/2025 11:11 AM EDT 04/26/2025 12:56 PM EDT us Linda Murphy DO LAB BLOOD ORDERABLES Final R esult [facility] [address] [place] [phone] * Referral to Podiatry (03/04/2025) Asuncion Bailey MD OUTPATIENT REFERRAL [facility] Final Result * HPV E6/E7 RFLX LUIS 16 18/45 (05/21/2022 3:45 PM EDT) HPV mRNA E6/E7 rflx Not Detected Not Detected [facility] Comment: Methodology: Furnace Converter-Mediated Amplification This assay detects E6/E7 viral messenger RNA (mRNA) from 14 high-risk HPV types (16,18,31,33,35,39,45,51,52,56,58,59,66,68). Cervical sources are required for HPV testing. If a vaginal source from a patient who has had a total hysterectomy with removal of cervix was submitted, please contact the testing laboratory for alternative testing options. For additional information, please refer to http://education.WineSimple/faq/JOQ011p0 (This link if provided for information/ educational purposes only.) THIS TEST WAS PERFORMED AT: [facility] [address] [place] [address],[place] [address] VALERIA DURANT MD 05/21/2022 3:45 PM EDT Fercho Palmer MD HISTORICAL/NON ORDERABLE LABS Fi nal Result [facility] [address] * Pap Smear (02/15/2022 12:00 AM EDT) Swab Linda Murphy DO LAB CYTOLOGY ORDERABLES Ce l Result [facility] [address] [place] [address], [place] [phone] * DIGITAL BILATERAL SCREEN 1 (04/01/2019 2:56 [...] 10/18/2025 Patient has chronic kidney disease 10/18/2025 Insurance [facility] < 65 ICO Care Teams Bath Mixer Relationship Specialty Start Date End Date Linda Murphy DO [address] [place] [phone] PCP - General Family Medicine 11/24/12
--- OUTSIDE RECORDS SUMMARY | 2025-10-22 18:48 | XMS_ITS | Encounter Summary ---
Author Organization [email or web address] Address [address] [facility] [address]t [place] [address] Care Team Providers Care Linseed Oil Temperer Name Role Phone Linda Murphy DO Primary Care Provider [phone] Antionette Murhpy PharmD Unavailable [phone] Reason for Visit * Reason Comments Med Refill Encounter Details Date Type Department Care Team ([facility] st Contact Info) Description 07/03/2024 Refill [facility] [address] [place] [address] Linda Murphy DO [address] [place] [address] Tobacco dependence Social History Tobacco Use Types [...] documented as of this encounter Care Teams Linseed Oil Temperer Relationship Specialty Start Date End Date Linda Murphy DO [address] [place] [address] PCP - General Family Medicine 11/24/12 Antionette Murphy PharmD [address] [place] [address] Pharmacist Internal Medicine 07/15/24 02/25/25 documented as of this encounter
--- OUTSIDE RECORDS SUMMARY | 2025-10-22 18:48 | XMS_ITS | Encounter Summary ---
Author Organization [employer] Address [address] [facility] 7t [place] [address] Care Team Providers Care Handbag Designer Name Role Phone Linda Murphy DO Primary Care Provider DellogNeri tovar PharmD Unavailable Unavail able Antionette Murphy PharmD Unavailable Reason for Visit * Reason Onset Date Comments triage 11/14/2022 Encounter Details Date Type Department Care Team (Late st Contact Info) Description 11/14/2022 Telephone [facility] MEDICINE [address] [place] [address] Linda Murphy DO [address] [place], [place] [phone] triage Social History Tobacco Use Types Packs/Day [...] EST Triage call Pt reports seen in [facility] today. Pt reports bruising on bilateral [...] on filedocumented in this encounter Care Teams Handbag Designer Relationship Specialty Start Date End Date Linda Murphy DO [address] [place] [phone] PCP - General Family Medicine 11/24/12 Nrei Yang PharmD [address] [place] [phone] Pharmacist Internal Medicine 11/23/22 10/17/23 Antionette Murphy PharmD [address] [place] [phone] Pharmacist Internal Medicine 07/15/24 02/25/25 documented as of this encounter
--- OUTSIDE RECORDS SUMMARY | 2025-10-22 18:49 | XMS_ITS | Encounter Summary ---
Author Organization [employer] Address [address] [facility] 7t [place] [address] Care Team Providers Care Machine Tool Rebuilder Name Role Phone Linda Murphy DO Primary Care Provider [phone] Reason for Visit * Reason Comments Med Refill Encounter Details Date Type Department Care Team ([facility] st Contact Info) Description 10/17/2025 Refill [facility] MEDICINE [address] [place] [address] Linda Murphy DO [address] [place] [address] Social History Tobacco Use Types Packs/Day Years [...] Care Plan Weekly blood pressure task No Patricia Barlowys Weekly blood pressure task Care Plan Weekly blood pressure task No Barlow Lorenys Patient has chronic kidney disease Care Plan Patient has chronic kidney disease No Barlow Lorenys Patient has chronic kidney disease Care Plan Patient has chronic kidney disease No Ivan Barlow Weekly blood pressure task Care Plan Weekly blood pressure task [facility] [place] Weekly blood pressure task Care Plan Weekly blood pressure task No [place], [place] Patient has chronic kidney disease Care Plan Patient has chronic kidney disease No [place] Patient has chronic kidney disease Care Plan Patient has chronic kidney disease No [place] Weekly blood pressure task Care Plan [...] Care Plan Patient has chronic kidney disease Joselyn Fabian RN Patient has chronic kidney disease Care Plan Patient has chronic kidney disease Joselyn Fabian RN documented as of this encounter Visit [...] 10/15/2025 Patient has chronic kidney disease 10/15/2025 Assessment Noted Time PHQ-9 Depression Total Score: 0 07/20/20 11:20 AM EDT documented as of this encounter Care Teams Machine Tool Rebuilder Relationship Specialty Start Date End Date Jurcsak, Linda, DO [address] [place] [address] PCP - General Family Medicine 11/24/12 documented as of this encounter
--- OUTSIDE RECORDS SUMMARY | 2025-10-22 18:49 | XMS_ITS | Clinical Summary ---
Author Organization [address] [facility] Address [address] [place] [address] Phone Care Team Providers Care Parish Nurse Name Role Phone Linda Murphy DO Primary Care Provider [phone] Allergies No known active allergies Medications acetaminophen [...] Orthopedic Surgery [facility] [address] [phone] Gutierrez Ruiz DPM Controlled type 2 diabetes with neuropathy (CMS/HCC V24, CMS/HCC V28) (Primary Dx); Metatarsalgia of right foot; [...] Orthopedic Surgery [facility] [address] [phone] Gutierrez Ruiz DPM [address] [address] Health Maintenance Due Date Last Done Comments [...] ID:[id number] Group ID:[id number] Type:Not on file Address: [address] [place] [address] Care Teams Parish Nurse Relationship Specialty Start Date End Date Linda Murphy DO [address] [place], [place] PCP - General Internal Medicine 04/09/19
--- OUTSIDE RECORDS SUMMARY | 2025-10-22 18:49 | XMS_ITS | Encounter Summary ---
Author Organization [employer] Address [address] [facility] [address] [place] [address] Care Team Providers Care Senior Informatica Developer Name Role Phone Linda Murphy DO Primary Care Provider [phone] Antionette Murphy PharmD Unavailable [phone] Reason for Visit * Reason Comments Med Refill Encounter Details Date Type Department Care Team (Late st Contact Info) Description 02/11/2025 Refill [facility] MED & PEDS [address] [place] [address] Linda Murphy DO [address] [place] [address] Chronic low back pain, unspecified back pain [...] as of this encounter Care Teams Senior Informatica Developer Relationship Specialty Start Date End Date Linda Murphy DO [address] [place] [address] PCP - General Family Medicine 11/24/12 Antionette Murphy PharmD [address] [place] [address] Pharmacist Internal Medicine 07/15/24 02/25/25 documented as of this encounter
--- OUTSIDE RECORDS SUMMARY | 2025-10-22 18:49 | XMS_ITS | Encounter Summary ---
Author Organization [employer] Address [address] [facility] 7t [place] [address] Care Team Providers Care Tube And Manifold Builder Name Role Phone Joelle Murphyfer Primary Care Provider + [phone] Encounter Details Date Type Department Care Team (Late st Contact Info) Description 10/22/2025 Orders Only GENERIC EXTERNAL DATA [...] the past 12 months, has t he [employer] gas, oil or water company threatened to [...] Plan Weekly blood pressure task No Yaima Marquez, RN Patient has chronic kidney disease Care [...] Patient has chronic kidney disease No Colon Mona De Oliveira Weekly blood pressure task Care Plan Weekly blood pressure task No Gabby Barlowenanastacia Weekly blood pressure task Care Plan Weekly blood pressure task No Barlow Lorenys Patient has chronic kidney disease Care Plan Patient has chronic kidney disease No Barlow Lorenys Patient has chronic kidney disease Care Plan Patient has chronic kidney disease No Ivan Barlow Weekly blood pressure task Care Plan Weekly blood pressure task No Jesus [place], [place] Weekly blood pressure task Care Plan Weekly blood pressure task No [facility] Patient has chronic kidney disease Care Plan Patient has chronic kidney disease No [facility] [place], [place] Patient has chronic kidney disease Care Plan Patient has chronic kidney disease No Lee [place] Weekly blood pressure task Care Plan [...] Plan Weekly blood pressure task No Joselyn García, KRYSTYNA Weekly blood pressure task Care Plan Weekly blood pressure task No Joselyn García, KRYSTYNA Patient has chronic kidney disease Care Plan Patient has chronic kidney disease No Joselyn García, KRYSTYNA Patient has chronic kidney disease Care Plan Patient has chronic kidney disease No Joselyn García, KRYSTYNA Weekly blood pressure task Care Plan Weekly [...] [place] documented as of this encounter Procedures Procedure Name Priority Date/Time Associated Diagnosis Comments CT HEAD WO CONTRAST Routine 10/22/2025 2 :[address] ABDOMEN PELVIS WO CONTRAST Routine 10/22/2025 2:15 PM EST XR CHEST 1 VIEW Routine 10/22/2025 1:00 PM EST VENOUS BLOOD GAS Routine 10/22/2025 12:1 6 PM EST SLIDE REVIEW Routine 10/22/2025 12:10 PM EST SARS COV2/INFLUENZA A/B AND RSV RNA QL NAAT Routine 10/22/2025 12:10 PM EST PROCALCITONIN Routine 10/22/2025 12:10 PM EST CBC WITH AUTO DIFFERENTIAL Routine 10/22/2025 12:10 PM EST MAGNESIUM Routine 10/22/2025 12:10 PM EST LACTIC ACID Routine 10/22/2025 12:10 PM EST CREATINE KINASE, TOTAL Routine 12:10 PM EST COMPREHENSIVE METABOLIC PANEL Routine 10/22/2025 12:10 PM EST documented in this encounter Results * CT Abdomen Pelvis w/o Contrast (10/22/2025 2:15 PM EST) Anatomical Region Laterality Modality Body, Pelvis, Abdomen Computed T omography 10/22/2025 2:15 PM EST Narrative 10/22/2025 3:05 PM EST [address] [address] [address] Scan Report Signed Patient: Tisha Ruiz MR#: [id number] 61 : 1970 Acct:[id number] Age/Sex: 55 / F ADM Date: 10/22/25 Loc: HO.ED Attending Dr: Ordering Physician: Teo Mazariegos DO Date of Service: 10/22/25 Procedure(s): CT abdomen pelvis wo IV con Accession Number(s): [id number] cc: Linda Murphy DO; Teo Mazariegos DO Report Number: [id number]: Total DLP = 1778.62 mGy-cm Reason for [...] by: Raulito Pillai MD 10/22/2025 03:02 PM [facility] Dictated By: Raulito Pillai MD Signed By: <Electronically signed by Raulito Pillai MD in OV> 10/22/25 1502 DD/ 1415 TD/TT: 10/22/25 1439 Domestic Travel Consultant: Procedure Note Donotuseinterpreter, Image - 10/22/[address] [address] [address] Scan Report Signed Patient: Ayanna RuiznMR#: [id number] 61 : 1970Acct:[id number] Age/Sex: 55 / FADM Date: 10/22/25 Loc: HO.ED Attending Dr: Ordering Physician: Teo Mazariegos DO Date of Service: 10/22/25 Procedure(s): CT abdomen pelvis wo IV con Accession Number(s): [id number] cc: Linda Murphy DO; Teo Mazariegos DO Report Number: [id number]: Total DLP = 1778.62 mGy-cm Reason for [...] by: Raulito Pillai MD 10/22/2025 03:02 PM [facility] Dictated By: Raulito Pillai MD Signed By: <Electronically signed by Raulito Pillai MD in OV> 10/22/25 1502 DD/ 1415 TD/TT: 10/22/25 1439 Domestic Travel Consultant: [facility] External Provider IM CT PROCEDURES Final Result * CT Head w/o Contrast (10/22/2025 2:15 PM EST) Anatomical Region Laterality Modality Head, Neck Computed Tomogra phy 10/22/2025 2:15 PM EST Narrative 10/22/2025 2:47 PM EST [address] [address] [address] Scan Report Signed Patient: Tisha Ruiz MR#: [id number] [birth year] : 1970 Acct:[id number] Age/Sex: 55 / F ADM Date: 10/22/25 Loc: HO.ED Attending Dr: Ordering Physician: Teo Mazariegos DO Date of Service: 10/22/25 Procedure(s): CT head/brain wo IV con Accession Number(s): [id number] cc: Linda Murphy DO; Teo Mazariegos DO Report Number: [id number]: Total DLP = 0.00 mGy-cm Reason for [...] by: Lexa Lei MD 10/22/2025 02:44 PM [facility] Dictated By: Lexa Lei MD Signed By: <Electronically signed by Lexa Lei MD in OV> 10/22/25 1444 DD/ 1415 TD/TT: 10/22/25 1439 Domestic Travel Consultant: Procedure Note Donotuseinterpreter, Image - 10/22/[address] [address] [address] Scan Report Signed Patient: Ayanna RuiznMR#: [id number] 61 : 1970Acct:[id number] Age/Sex: 55 / FADM Date: 10/22/25 Loc: HO.ED Attending Dr: Ordering Physician: eTo Mazariegos DO Date of Service: 10/22/25 Procedure(s): CT head/brain wo IV con Accession Number(s): [id number] cc: Linda Murphy DO; Teo Mazariegos DO Report Number: [id number]: Total DLP = 0.00 mGy-cm Reason for [...] by: Lexa Lei MD 10/22/2025 02:44 PM EST RP Dictated By: Lexa Lei MD Signed By: <Electronically signed by Lexa Lei MD in OV> 10/22/25 1444 DD/ 1415 TD/TT: 10/22/25 1439 Domestic Travel Consultant: [facility] External Provider IMG CT PROCEDURES Final Result * XR Chest 1 View (10/22/2025 1:00 PM EST) Anatomical Region Laterality Modality Chest Radiographic Rosaura ging 10/22/2025 1:00 PM EST Narrative 10/22/2025 1:16 PM EST [place] [address] XRay Report Signed Patient: Tisha Ruiz MR#: [id number] [birth year] : 1970 Acct:[id number] Age/Sex: 55 / F ADM Date: 10/22/25 Loc: HO.ED Attending Dr: Ordering Physician: Sana Teague Date of Service: 10/22/25 Procedure(s): XR chest 1V Accession Number(s): [id number] cc: Sana Teague; Linda Murphy DO Reason [...] 10/22/25 1313 DD/ 1300 TD/TT: 10/22/25 1305 Domestic Travel Consultant: Procedure Note Donotcalixtoter, Image - 10/22/2025 [place] [address] XRay Report Signed Patient: Ayanna RuiznMR#: [id number] 61 : 1970Acct:[id number] Age/Sex: 55 / FADM Date: 10/22/25 Loc: HO.ED Attending Dr: Ordering Physician: Sana Teague Date of Service: 10/22/25 Procedure(s): XR chest 1V Accession Number(s): [id number] cc: Saan Teague; Linda Murphy DO Reason for Exam: [...] 10/22/25 1313 DD/ 1300 TD/TT: 10/22/25 1305 Domestic Travel Consultant: [facility] External Provider IMG XR PROCEDURES Final Result * (ABNORMAL) VENOUS BLOOD GAS (10/22/2025 12:16 PM EST) VBG pH 7.53(H) 7.32 - 7.43 [facility] Comment:METER #: [id number] additional_comment: Cb damkymberlyd VBG PCO2 26 mmHg [facility] Comment:METER #: [id number] additional_comment: Cb damourd VBG PO2 68 mmHg [facility] Comment:METER #: [id number] additional_comment: Cb damourd VBG Base Excess 1.3 mmol/L [facility] Comment:METER #: [id number] additional_comment: Cb damourd VBG HCO3 22 22 - 26 mmol/L [facility] Comment:METER #: [id number] additional_comment: Cb damkymberlyd O2 Sat, Kevan 94.0 % [facility] Comment:METER #: [id number] additional_comment: Cb bon 10/22/2025 12:1 6 PM EST 10/22/2025 12:20 PM EST us Generic External Data Provider LAB BLOOD ORDERAB LES Final Result [facility] [address] [place] [phone] * Procalcitonin (10/22/2025 12:10 PM EST) Procalcitonin 9.95 ng/mL [facility] Comment: Procalcitonin (PCT) Reference Range:PCT greater [...] in interpreting PCT results fromdifferent laboratories and methodologies.References:[place] [employer]/Society of CriticalCare Medicine Consensus Conference Committee. Definitionsfor sepsis and organ failure and guidelines for the use ofinnovative therapies in sepsis. Crit Care Vpc5986;20(6):864-874.Oliva B, Paul KL, Harper H, et al. Calcitoninprecursors are reliable markers of sepsis in a medicalintensive care unit. Crit Care Med 2000;363:600-607.Cindi S, David K, Lior Mukherjee, et al. Diagnosticvalue of procalcitonin, interleukin-6 and interleukin-8 incritically ill patients admitted with suspected sepsis. AMJ Respir Crit Care Med 2001;164:396-402.[place] Food and Drug Administration. 510(k) substantialequivalence determination decision summary for BRAS PCTLIA.http://www.accessdata.fda.fov/cdrh_docs/reviews/I963289.pdf.Published November 2004. Accessed April 2017. 10/22/2025 12:1 0 PM EST 10/22/2025 12:13 PM EST Generic External Data Provider LAB BLOOD ORDERAB LES Final Result Performing Organization Address City/[facility]/ZIP Co de Phone Number [facility] [address] [place] [phone] * (ABNORMAL) Creatine Kinase, Total (10/22/2025 12:10 PM EST) Creatine Kinase Total 1,313(H) 26 - 140 U/L [facility] 10/22/2025 12:1 0 PM EST 10/22/2025 12:13 PM EST Generic External Data Provider LAB BLOOD ORDERAB LES Final Result Performing Organization Address [facility]/ZIP Co de Phone Number [facility] [address] [place] [phone] * SARS-CoV-2 RNA, Influenza A/B, and RSV RNA, Ql NAAT (10/22/2025 12:10 PM EST) Influenza A PCR NEGATIVE Negative [facility] Influenza B PCR NEGATIVE Negative [facility] Resp Syncy Virus RNA Qual PCR NEGATIVE Negative [facility] SARS COV2 PCR NEGATIVE Negative [facility] Comment:All test results mus t be [...] use by authorized laboratories.Testing performed on the Sealed GeneXpert utilizingreal-time RT-PCR.All SARS CoV2 and positive influenza A/B results arereported to [facility]. 10/22/2025 12:1 0 PM EST 10/22/2025 12:33 PM EST Generic External Data Provider LAB MICROBIOLOGY - GENERAL ORDERABLES Final Result Performing Organization Address [facility] Co de Phone Number [facility] [address] [place] [phone] * Slide Review (10/22/2025 12:10 PM EST) Slide Review VERIFIED [facility] 10/22/2025 12:1 0 PM EST 10/22/2025 12:13 PM EST [facility] External Data Provider LAB BLOOD ORDERAB LES Final Result Performing Organization Address [facility] de Phone Number [facility] [address] [place] [phone] * (ABNORMAL) Magnesium (10/22/2025 12:10 PM EST) Magnesium 1.3(LL) 1.6 - 2.6 mg/dL [facility] Comment:Critical value for t est(s): MAG Results called to and readback by: MARIO Person calling: NEDRA Date: 10.22.25Time: 1237 10/22/2025 12:1 0 PM EST 10/22/2025 12:13 PM EST us Generic External Data Provider LAB BLOOD ORDERAB LES Final Result [facility] [address] [place] [address] [phone] * (ABNORMAL) Comprehensive Metabolic Panel (10/22/2025 12:10 PM EST) Sodium 129(L) 135 - 145 mmol/L [facility] Potassium 3.7 3.3 - 5.1 mmol/L [facility] Chloride 92(L) 96 - 108 mmol/L [facility] Carbon Dioxide 21(L) 22 - 29 mmol/L [facility] Anion Gap 20 12 - 20 [facility] Urea Nitrogen (BUN) 49(H) 9 - 16 mg/dL [facility] Creatinine, Serum 4.59(HH) 0.5 - 1.4 mg/dL [facility] Comment:Critical value for t est(s): CREA Results called to and readback by: MARIO Person calling: NEDRA Date: 10.22.25Time: 1237 Creatinine Clr Calc Pharmacy 16.9 [facility] Comment:Provided height and weight: 170.18 cm,96.6 kg.eGFR (calculated from the MDRD study equation) and eCrCl(calculated from the Cockcroft-Gault equation) are based ondifferent parameters and may not yield comparable results.If eCrCl result is absurd, please check patient'sheight/weight. Estimated Glomerular Filt Rate 10 [facility] Comment:Chronic Kidney Disea se: Estimated GFR < 60 mL/min/1.87r4[place]ag Kidney Disease: Estimated GFR < 15 mL/min/1.73m2 Glucose 185(H) 60 - 115 mg/dL [facility] Calcium 8.4 8.4 - 10.2 mg/dL [facility] Bilirubin, Total 0.4 0.0 - 1.0 mg/dL [facility] Aspartate Amino Transferase 70(H) 5 - 31 U/L [facility] Alanine Aminotransferase 25 0 - 31 U/L [facility] Total Protein 7.4 6.5 - 8.0 g/dL [facility] Albumin Level 3.6 3.5 - 5.0 g/dL [facility] Alkaline Phosphatase 128(H) 39 - 117 U/L [facility] 10/22/2025 12:1 0 PM EST 10/22/2025 12:13 PM EST Generic External Data Provider LAB BLOOD ORDERAB LES Final Result Performing Organization Address [facility]/ZIP Co de Phone Number [facility] [address] [place] [phone] * Lactic Acid (10/22/2025 12:10 PM EST) Lactic Acid 1.4 0.5 - 2.0 mmol/L [facility] 10/22/2025 12:1 0 PM EST 10/22/2025 12:13 PM EST Generic External Data Provider LAB BLOOD ORDERAB LES Final Result Performing Organization Address [facility] Co de Phone Number [facility] [address] [place] [address] [phone] * (ABNORMAL) CBC auto differential (10/22/2025 12:10 PM EST) White Blood Count 27.0(H) 4.8 - 10.8 X10*3/uL [facility] Red Blood Count 3.13(L) 4.20 - 5.50 X10*6/uL [facility] Hemoglobin 8.2(L) 12.0 - 16.0 g/dl [facility] Hematocrit 23.9(L) 37.0 - 47.0 % [facility] Mean Corpuscular Volume 76.4(L) 80.0 - 98.0 fL [facility] Mean Corpuscular Hemoglobin 26.2(L) 27.0 - 33.0 pg [facility] Mean Corpuscular HGB Conc 34.3 31.0 - 35.0 g/dl [facility] Red Cell Distribution Width 15.9 11.0 - 16.0 % [facility] Platelet Count 440(H) 160 - 400 X10*3/uL [facility] Mean Platelet Volume 9.8 9.4 - 12.3 fL [facility] Neutrophils Percent Auto 82.1(H) 45 - 73 % [facility] Imm Gran Pct Auto 1.2(H) 0.0 - 0.4 % [facility] Lymphocytes Percent Auto 6.6(L) 20 - 40 % [facility] Monocytes Percent Auto 9.7 2 - 11 % [facility] Eosinophils Percent Auto 0.1 0 - 4 % [facility] Basophils Percent Auto 0.3 0 - 2 % [facility] NRBC Pct Auto 0.0 0.0 - 0.2 /100WBC [facility] Neutrophils Absolute Auto 22.2(H) 2.0 - 8.3 x10*3/uL [facility] Imm Gran Abs Auto 0.33(H) 0.00 - 0.03 X10*3/uL [facility] Lymphocytes Absolute Auto 1.8 1.2 - 4.9 X10*3/uL [facility] Monocytes Absolute Auto 2.6(H) 0.1 - 1.2 X10*3/uL [facility] Eosinophils Absolute Auto 0.0 0.0 - 0.4 X10*3/uL [facility] Basophils Absolute Auto 0.1 0.0 - 0.2 X10*3/uL [facility] NRBC Abs Auto 0.000 0.0 - 0.012 X10*3/uL [facility] 10/22/2025 12:1 0 PM EST 10/22/2025 12:13 PM EST us Generic External Data Provider LAB BLOOD ORDERAB LES Edited Result - Final [facility] [address] [place] [phone] [phone] documented in this encounter Visit Diagnoses [...] documented as of this encounter Care Teams Tube And Manifold Builder Relationship Specialty Start Date End Date Linda Murphy DO [address] [place] [address] PCP - General Family Medicine 11/24/12 documented as of this encounter
--- OUTSIDE RECORDS SUMMARY | 2025-10-22 18:49 | XMS_ITS | Encounter Summary ---
Author Organization [employer] Address [address] [facility] 7t [place] [address] Care Team Providers Care Coating Machine Helper Name Role Phone Linda Murphy DO Primary Care Provider [phone] Antionette Murphy PharmD Unavailable [phone] Reason for Visit * Reason Onset Date Comments Med Refill 12/18/2024 Encounter Details Date Type Department Care Team (Late st Contact Info) Description 12/18/[address] [facility] MEDICINE [address] [place] [address] Linda Murphy DO [address] [place] [address] Social History Tobacco Use Types Packs/Day Years [...] documented as of this encounter Care Teams Coating Machine Helper Relationship Specialty Start Date End Date Linda Murphy DO [address] [place] [address] PCP - General Family Medicine 11/24/12 Antionette Murphy PharmD [address] [place] [address] Pharmacist Internal Medicine 07/15/24 02/25/25 documented as of this encounter
--- OUTSIDE RECORDS SUMMARY | 2025-10-22 18:49 | XMS_ITS | Encounter Summary ---
Author Organization [employer] Address [address] [facility] [address] [place] [address] Care Team Providers Care Workforce Consultant Name Role Phone Linda Murphy DO Primary Care Provider [phone] Antionette Murphy PharmD Unavailable [phone] Reason for Visit * Reason Onset Date Comments Med Refill 12/18/2024 Encounter Details Date Type Department Care Team (Late st Contact Info) Description 12/18/2024 Refill [facility] MED & PEDS [address] [place] [address] Linda Murphy DO [address] [facility] [place] [address] Acute post-traumatic headache, not intractable; Chronic obstructive [...] documented as of this encounter Care Teams Workforce Consultant Relationship Specialty Start Date End Date Linda Murphy DO [address] [place] [address] PCP - General Family Medicine 11/24/12 Antionette Murphy PharmD [address] [place] [address] Pharmacist Internal Medicine 07/15/24 02/25/25 documented as of this encounter
--- OUTSIDE RECORDS SUMMARY | 2025-10-22 18:49 | XMS_ITS | Encounter Summary ---
Author Organization [employer] Address [address] [facility] [address] [place] [address] Care Team Providers Care Rap Artist Name Role Phone Linda Murphy DO Primary Care Provider [phone] Reason for Visit * Reason Comments Med Refill Encounter Details Date Type Department Care Team ([facility] st Contact Info) Description 07/14/2025 Refill [facility] MED & PEDS [address] [place] [address] Linda Murphy DO [address] [facility] [place] [address] Chronic bilateral low back pain without sciatica [...] documented as of this encounter Care Teams Rap Artist Relationship Specialty Start Date End Date Linda Murphy DO [address] [place] [phone] PCP - General Family Medicine 11/24/12 documented as of this encounter
--- OUTSIDE RECORDS SUMMARY | 2025-10-22 18:49 | XMS_ITS | Encounter Summary ---
Author Organization [employer] Address [address] [facility] [address]t [place] [address] Care Team Providers Care Traffic Signal Repairer Name Role Phone Linda Murphy DO Primary Care Provider [phone] Antionette Murphy PharmD Unavailable [phone] Reason for Visit * Reason Comments Med Refill Encounter Details Date Type Department Care Team ([facility] st Contact Info) Description 11/24/2023 Refill [facility] MEDICINE [address] [place] [address] Linda Murphy DO [address] [place] [address] Social History Tobacco Use Types Packs/Day Years [...] as of this encounter Care Teams Traffic Signal Repairer Relationship Specialty Start Date End Date Linda Murphy DO [address] [place] [address] PCP - General Family Medicine 11/24/12 Antionette Murphy PharmD [address] [place] [address] Pharmacist Internal Medicine 07/15/24 02/25/25 documented as of this encounter
--- OUTSIDE RECORDS SUMMARY | 2025-10-22 18:49 | XMS_ITS | Clinical Summary ---
Author Organization [facility] Address [address] [place] [address] Care Team Providers Care Senior Analyst Name Role Phone Unavailable Primary Care Provider Unavailabl e Allergies No known active allergies Encounters Date Type Department Care Team Description 10/22/2025 6:50 PM EST Ancillary Procedure [facility] [address] [place] [phone] Provider, File Room Arrived 10/22/2025 6:50 PM EST Ancillary Procedure [facility] [address] [place] [phone] Provider, File Room Arrived 10/22/2025 6:45 PM EST Ancillary Procedure [facility] [address] [place] [phone] Provider, File Room Arrived 10/22/2025 6:45 PM EST Ancillary Procedure [facility] [address] [place] [phone] Provider, File Room Arrived 10/22/2025 6:07 PM EST - Present Emergency [facility] Emergency Department [address] [place] [phone] Jatinder German MD 10/22/2025 4:25 PM EST Ancillary Procedure [facility] [address] [place] [phone] Provider, File Room Arrived 10/22/2025 4:20 PM EST Ancillary Procedure [facility] [address] [place] [phone] Provider, File Room Arrived 10/22/2025 4:20 PM EST Ancillary Procedure [facility] [address] [place] [phone] Provider, File Room Arrived 10/22/2025 4:20 PM EST Ancillary Procedure [facility] [address] [place] [phone] Provider, File Room Arrived from Last 3 Months Social History Tobacco [...] - - Body Mass Index - - Plan of Treatment Upcoming Encounters Date Type Department Care Team (Late st Contact Info) Description 10/22/2025 6:50 PM EST Ancillary Procedure [facility] [address] [place] [phone] Provider, File Room Arrived 10/22/2025 6:50 PM EST Ancillary Procedure [facility] [address] [place] [phone] Provider, File Room Arrived Health Maintenance Due Date Last Done Comments Hepatitis C Virus Screening 1972 Chronic Controlled Substance Toxicology Screening 1990 Chronic Controlled Substance User PDMP Review 1990 Controlled Substance Agreeme nt Initial and Annual Review 1990 DTaP/Tdap/Td Vaccines (1 - Tdap) 1991 Hepatitis B Vaccines (1 of 3 - 19+ 3-dose series) 1991 Pap Smear (Ages 21-65) 1993 Mammogram 2012 Colonoscopy 2017 Pneumococcal Vaccines 50+ (1 of 1 - PCV) 2022 Zoster (Shingles) Vaccine (1 of 2) 2022 Influenza Vaccine 06/11/2025 08/26/2024, , 08/24/2022, Additional history exists COVID-19 Vaccine (2024-2 6 season) 2025 10/06/2024, 07/22/2023, 08/24/2022, Additional history exists RSV Vaccine 50 years and old er and Patients (1 - 1-dose 75+ series) 2047 HIV Screening Completed 04/26/2025 Procedures * The patient is currently admitted. The information in this section might not be complete until the patient is discharged. Procedure Name Priority Date/Time Associated Diagnosis Comments CR CHEST ARCHIVE FOR REFERENCE ONLY Routine 10/22/2025 6:[address] HEAD ARCHIVE FOR REFERENCE ONLY Routine 10/22/2025 6:45 PM EST EDWIN ARCHIVE FOR REFERENCE ONLY US Routine 10/22/2025 6:[address] ABDOMEN ARCHIVE FOR REFERENCE ONLY Routine 10/22/2025 6:43 PM EST POCT GLUCOSE, FINGERSTICK (CHARGE) Routine 10/22/2025 6:12 PM EST EDWIN ARCHIVE FOR REFERENCE ONLY US Routine 10/22/2025 4:20 PM EST CR CHEST ARCHIVE FOR REFERENCE ONLY Routine 10/22/2025 4:[address] HEAD ARCHIVE FOR REFERENCE ONLY Routine 10/22/2025 4:[address] ABDOMEN ARCHIVE FOR REFERENCE ONLY Routine 10/22/2025 4:18 PM EST from Last 3 Months Results * CR Chest Archive for Reference only (10/22/2025 6:45 PM EST) Only the most recent of2 resultswithin the time period is included. Narrative VAL - 10/22/2025 6:45 PM EST This study has been auto finalized and does not contain a result. us File Room Provider IMG DIGITIZE FILMS Final Resu lt VAL [phone] * CT Head Archive for Reference Only (10/22/2025 6:45 PM EST) Only the most recent of2 resultswithin the time period is included. Narrative HILBERT - 10/22/2025 6:45 PM EST This study has been auto finalized and does not contain a result. us File Room Provider IMG DIGITIZE FILMS Final Resu lt Performing Organization Address [facility] de Phone Number VAL [phone] * EDWIN Archive for reference only US (10/22/2025 6:45 PM EST) Only the most recent of2 resultswithin the time period is included. Narrative HILBERT - 10/22/2025 6:40 PM EST This order has been auto-finalized and does not contain a result. us File Room Provider IMG DIGITIZE FILMS Final Resu lt Performing Organization Address [facility] de Phone Number VAL [phone] * CT Abdomen Archive for Reference Only (10/22/2025 6:43 PM EST) Only the most recent of2 resultswithin the time period is included. Narrative HILBERT - 10/22/2025 6:43 PM EST This study has been auto finalized and does not contain a result. us File Room Provider IMG DIGITIZE FILMS Final Resu lt Performing Organization Address [facility] de Phone Number VAL [phone] * POCT Glucose, Fingerstick (10/22/2025 6:12 PM EST) POC Glucose 96 65 - 99 mg/dL 10/22/2025 6:13 PM EST Blood specimen / Unknown 10/22/2025 6:12 PM EST 10/22/2025 6:13 PM EST Jatinder German MD POINT OF CARE TEST ORDERABLE S Final Result Performing Organization Address [facility] de Phone Number HOSPITAL LAB See Below from Last 3 Months
--- OUTSIDE RECORDS SUMMARY | 2025-10-22 18:49 | XMS_ITS | Encounter Summary ---
Author Organization [employer] Address [address] [place] [address] Care Team Providers Care Prescription Clerk Name Role Phone KatherineLinda Primary Care Provider + [phone] Encounter Details Date Type Department Care Team (Latest Contact Info) Description 10/18/2025 Travel Social History Tobacco Use Types Packs/Day [...] t he electric, gas, oil or water [employer] threatened to shut off services in your [...] Component 8.7( 9:13 AM EST) No Neri Ynag, PharmD Help patients manage their type 2 [...] Patient has chronic kidney disease No Barlow Lorenanastacia Weekly blood pressure task Care Plan Weekly blood pressure task No Leeharley Wakefield [place], [place] Weekly blood pressure task Care Plan Weekly blood pressure task No [facility] [place] Patient has chronic kidney disease Care Plan Patient has chronic kidney disease [facility] [place] Patient has chronic kidney disease Care Plan Patient has chronic kidney disease No Lee [place], [place], [place] Weekly blood pressure task Care Plan [...] Care Plan Patient has chronic kidney disease Robyn Chavez [place] documented as of this encounter Visit [...] documented as of this encounter Care Teams Prescription Clerk Relationship Specialty Start Date End Date Linda Murphy DO [address] [place] [address] PCP - General Family Medicine 11/24/12 documented as of this encounter
--- OUTSIDE RECORDS SUMMARY | 2025-10-22 18:49 | XMS_ITS | Encounter Summary ---
Author Organization [employer] Address [address] [place] [address] Care Team Providers Care Card Folder Name Role Phone Linda Murphy DO Primary Care Provider [phone] Antionette Murphy PharmD Unavailable [phone] Reason for Visit * Reason Onset Date Comments Durable Medical Equipment 03/06/2024 Encounter Details Date Type Department Care Team ([facility] st Contact Info) Description 03/06/2024 Telephone [facility] [address] [place] [address] Linda Murphy DO [address] [place] [address] Durable Medical Equipment Social History Tobacco Use [...] documented as of this encounter Care Teams Card Folder Relationship Specialty Start Date End Date Linda Murphy DO [address] [place] [address] PCP - General Family Medicine 11/24/12 Antionette Murphy PharmD [address] [place] [address] Pharmacist Internal Medicine 07/15/24 02/25/25 documented as of this encounter
== END 2025-10-22 17:44 | disposition short-term general hospital (02) | DRG 872 ==
LOC: HO.ED 15:06 → HO.EDOVER 15:22
PROVIDERS: Emergency Medicine; Physician Assistant Medical; Admitting Provider Internal Medicine Critical Care Medicine; Emergency Provider Emergency Medicine; PCP Family Medicine; Visit Provider Internal Medicine Critical Care Medicine
DX: A41.9 Sepsis, unspecified organism (principal); A04.72 Enterocolitis due to Clostridium difficile, not specified as recurrent; F05 Delirium due to known physiological condition; N17.9 Acute kidney failure, unspecified; N39.0 Urinary tract infection, site not specified; E89.0 Postprocedural hypothyroidism; E83.42 Hypomagnesemia; I95.9 Hypotension, unspecified; Z20.822 Contact with and (suspected) exposure to COVID-19; Z85.850 Personal history of malignant neoplasm of thyroid; Z87.891 Personal history of nicotine dependence; Z79.82 Long term (current) use of aspirin; Z79.84 Long term (current) use of oral hypoglycemic drugs; Z79.899 Other long term (current) drug therapy
CPT/HCPCS: 36415; 70450; 71045; 74176; 80053; 81001; 82550; 82803; 83605; 83735; 84145; 84702; 85025; 86850; 86900; 86901; 87040; 87086; 87088; 87186; 87493; 87637; 93005; 99284; J0131; J2185; J3374; J3475; J7120; P9047

== ENCOUNTER → 2025-10-22 11:50 | Outpatient (BNV) | payer OTHER, SELFPAY | PROVIDERS: Emergency Provider Emergency Medicine; PCP Family Medicine; Visit Provider Internal Medicine Cardiovascular Disease | DX: R00.0 Tachycardia, unspecified (principal); I25.2 Old myocardial infarction | CPT/HCPCS: 93010 ==

== ENCOUNTER → 2025-10-22 11:54 | Outpatient (BNV) | payer OTHER, SELFPAY | PROVIDERS: Emergency Provider Emergency Medicine; PCP Family Medicine; Visit Provider Radiology Diagnostic Radiology | DX: N73.9 Female pelvic inflammatory disease, unspecified (principal); N17.9 Acute kidney failure, unspecified; N83.209 Unspecified ovarian cyst, unspecified side; N13.30 Unspecified hydronephrosis; J90 Pleural effusion, not elsewhere classified; I31.39 Other pericardial effusion (noninflammatory); R41.82 Altered mental status, unspecified; J81.1 Chronic pulmonary edema | CPT/HCPCS: 70450; 71045; 74176 ==

== ENCOUNTER 2025-11-08 21:18 | Emergency (ER) | payer OTHER, SELFPAY ==
--- OUTSIDE RECORDS SUMMARY | 2025-10-22 18:07 | XMS_ITS | Encounter Summary ---
Author Organization [facility] Address [address] [place] [address] Care Team Providers Care Ice Maker Name Role Phone Linda Murphy DO Primary Care Provider + [phone] Reason for Referral * Home Health (Routine) - Pending Review Specialty Diagnoses / Procedures Referred By Rolf pascual Referred To Contact Diagnoses Tubo-ovarian abscess Tisha Shah MD [address] [place] [address] [place] [phone] Phone: tel: fax: Referral ID Status Reason Start Date Expiration Date V isits Requested Visits Authorized [id number] Pending Review 11/03/2025 11/04/2026 999 999 Question Answer Primary Reason for Home Health (Enter diagnosis; avoid symptoms): Tubo-ovarian abscess [[id number]] Physician to follow patient's care PCP At Home Intensive? No Pre-Book? No Comments Please evaluate Sis Valdez for admission to HomeCare Services The following services are medically necessary home health services: Nursing: Disease Process: assess for S/S of decompensation or adverse effects of new/exacerbated disease Medication Management and Teaching Neurological Assessment and Teaching Nutritional Status: assess and provide teaching about disease specific diet recommendations Post- Op Care and Teaching Safety Eval: assess for additional needs Wound Care Management: perform and instruct Other IV PICC dressing changes and IV antibiotic teaching Secondary Disciplines &Services: None Special Instructions: None This patient is homebound because: Difficulty with ambulation and transfers requiring assistance of others to leave home safely. and Extreme weakness r/t disease and illness Date of F2F Encounter: I verify that a F2F Encounter occurred on 11/02/25 upon which the patient was found to be homebound and require intermittent skilled care by a SN, PT, ST or OT. Services. The encounter findings are communicated to the certifying physician Reason for Visit * Reason Comments Abnormal Test Result * Auth/Cert Specialty Diagnoses / Procedures Referred By Contac t Referred To Contact Diagnoses Sepsis (HCC) pelvic fluid collection Procedures . Referral ID Status Reason Start Date Expiration Date Visits Re quested Visits Authorized [id number] 1 1 Encounter Details Date Type Department Care Team (Late st Contact Info) Description 10/22/2025 6:07 PM EST - 11/05/2025 12:50 PM EST Hospital Encounter [facility] [address] [place] [phone] Stanislav German MD [address] [place] [phone] Annika Milian MD [address] [place] [phone] Mehnaz Rodriguez MD [address] [address] Kimberlyn Swain MD [address] [place] [address] Carmela Ortiz MD [address] [place] [phone] dEuardo Valentine MD [address] [place] [phone] Wiliam Zhu MD [address] [place] [phone] Karen Scanlon DO [address] [place] [phone] Eddie Alicia MD [address] [address] Tubo-ovarian abscess (Primary Dx); Ureteral obstruction Discharge Disposition: Home with Health Care Services Social History Tobacco Use Types Packs/Day Years Used Date Smoking Tobacco: Never Smokeless Tobacco: Never Tobacco Cessation:Counseling Given: Not Answered Alcohol Use Standard Drinks/Week Comments Never 0 (1 standard drink = 0.6 oz pur e alcohol) AUDIT-C Answer Date Recorded Q1: How often do you have a drink containing alcohol? Never 10/23/2025 Q2: How many drinks containi ng alcohol do you have on a typical day when you are drinking? Patient does not drink Q3: How often do you have si x or more drinks on one occasion? Never 10/23/2025 Hunger Vital Sign Answer Date Recorded Within the past 12 months, y ou worried that your food would run out before you got the money to buy more. Never true 10/26/20 25 Within the past 12 months, t he food you bought just didn't last and you didn't have money to get more. Never true 10/26/2025 PRAPARE - Transportation Answer Date Re corded In the past 12 months, has l ack of transportation kept you from medical appointments or from getting medications? No 10/11 In the past 12 months, has l ack of transportation kept you from meetings, work, or from getting things needed for daily living? No 10/26/2025 Housing Stability Vital Sign Answer Khadar e Recorded In the last 12 months, was t here a time when you were not able to pay the mortgage or rent on time? No 10/26/2025 In the past 12 months, how m any times have you moved where you were living? 0 10/26/2025 At any time in the past 12 m [facility], were you homeless or living in a longterm (including now)? No 10/26/2025 [facility] Utilities Answer Date Recorded In the past 12 months has th e electric, gas, oil, or water company threatened to shut off services in your home? No 10/26/2025 Comments Unknown Sex and Gender Information Value Date Recorded Sex Assigned at Female 10/22/2025 7:47 PM EST Legal Sex Female 6:09 PM EST Gender Identity Female 10/22/2025 7:47 PM EST Sexual Orientation Heterosexual (straight) 10/22 7:47 PM EST documented as of this encounter Last Filed Vital Signs Vital Sign Reading Time Taken Comments Blood Pressure 100/60 11/05/2025 7:21 AM EST Pulse 74 11/05/2025 7:21 AM EST Temperature 36.1 C (96.9 F) 11/05/2025 7:21 AM EST Respiratory Rate 18 11/05/2025 7:21 AM EST Oxygen Saturation 98% 11/05/2025 7:21 AM EST Inhaled Oxygen Concentration - - Weight 96.6 kg (212 lb 15.4 oz) 025 10:15 PM EST Height 172.1 cm (5' 7.75 ) 10/24/2025 1:00 PM ES T Body Mass Index 32.62 10/22/2025 10:15 PM EST documented in this encounter Functional Status * AUDIT-C Total Score - Female Answer Date of Assessment Author 0 10/23/2025 7:52 PM Hari Doss RN * AUDIT-C Score Answer Date of Assessment Author 0 10/23/2025 7:52 PM Hari Doss RN * Question Answer Date of Assessment Author Q1: How often do you have a drink containing alcohol? Never 10/23/2025 7:52 PM Antionette Doss RN Q2: How many drinks containing alcohol do you have on a typical day when you are drinking? Patient does not drink 10/23/2025 7:52 PM Antionette Doss RN Q3: How often do you have six or more drinks on one occasion? Never 10/23/2025 7:52 PM Antionette Doss RN * Level of Risk per Screen Answer Date of Assessment Author Low Risk 10/23/2025 7:52 PM Hari Doss RN documented as of this encounter Discharge Summaries * Marnie Calloway MD - 11/05/2025 10:29 AM EST Inpatient Discharge Summary [facility] Brief Overview Patient Demographics Name: Sis Valdez :1970 Admission Date: 10/22/2025 Admitting Provider: Annika Milian MD Discharge Date: 11/05/2025 Discharge Provider: Eddie Alicia MD Discharge Disposition: Home With Health Care Services Primary Care Provider at Discharge: Linda Murphy DO Primary Discharge Diagnosis Principal Problem: Sepsis (HCC) (POA: Unknown) Active Problems: Type 2 diabetes mellitus (HCC) (POA: Yes) Schizophrenia (HCC) (POA: Yes) Postoperative hypothyroidism (POA: Yes) Obstructive sleep apnea syndrome (POA: Yes) Gastroesophageal reflux disease (POA: Yes) Hyperlipidemia (POA: Yes) Hypertension (POA: Yes) Chronic obstructive lung disease (HCC) (POA: Yes) Bipolar disorder (HCC) (POA: Yes) Tubo-ovarian abscess (POA: Unknown) Urinary tract infection (POA: Unknown) MADELINE (acute kidney injury) (POA: Unknown) Anemia (POA: Unknown) Hypocalcemia (POA: Unknown) Hypokalemia (POA: Unknown) High anion gap metabolic acidosis (POA: Unknown) Ureteral obstruction (POA: Yes) Resolved Problems: Discharge Medications Discharge Medications NEW MEDICATIONS acetaminophen 500 MG tablet; Replaces: acetaminophen 650 MG CR tablet; Commonly known as: TYLENOL; 500 mg, Oral, Every 6 hours PRN ampicillin-sulbactam 3 g in sodium chloride-MBP 0.9% 100 mL IVPB; Stop taking on: December 05, 2025; 3 g, Intravenous, Every 6 hours CHANGED MEDICATIONS * Levothyroxine Sodium 200 MCG/ML Soln; What changed: Another medication with the same name was added. Make sure you understand how and when to take each.; 200 mcg, Daily * levothyroxine 125 MCG tablet; Quantity: 60 tablet; What changed: You were already taking a medication with the same name, and this prescription was added. Make sure you understand how and when to take each.; Commonly known as: SYNTHROID, LEVOTHROID; 250 mcg, Oral, Daily; Start taking on: November 06, 2025 * There are duplicate medications prescribed to the patient CONTINUED MEDICATIONS ARIPiprazole 20 MG tablet; Commonly known as: ABILIFY; 20 mg, Daily ascorbic acid 250 MG tablet; Commonly known as: VITAMIN C; 250 mg, Daily Aspirin Low Dose 81 MG EC tablet; Generic drug: aspirin enteric coated; 81 mg, Nightly atorvastatin 40 MG tablet; Commonly known as: LIPITOR; 40 mg, Nightly baclofen 10 MG tablet; Commonly known as: LIORESAL; 10 mg, 3 times daily buPROPion 300 MG 24 hr tablet; Commonly known as: WELLBUTRIN XL; 300 mg, Every morning clonazePAM 1 MG tablet; Commonly known as: KlonoPIN; 1 mg, Every 12 hours PRN diclofenac 1 % gel; Commonly known as: VOLTAREN; Apply topically. docusate sodium 100 MG capsule; Commonly known as: COLACE; 100 mg, 2 times daily ferrous sulfate 325 (65 FE) MG EC tablet; 325 mg, Daily FreeStyle Wayzata Lite w/Device Kit; USE TO TEST BLOOD SUGAR TWICE DAILY AND DIRECTED FREESTYLE LITE strip; Generic drug: glucose blood; 1 test strip, 2 times daily gabapentin 600 MG tablet; Commonly known as: NEURONTIN; 600 mg, 3 times daily glipiZIDE 5 MG tablet; Commonly known as: GLUCOTROL; 5 mg, 2 times daily before meals haloperidol 5 MG tablet; Commonly known as: HALDOL; 2.5 mg, 2 times daily hydrOXYzine pamoate 50 MG capsule; Commonly known as: VISTARIL; 50 mg, 3 times daily PRN lisinopril 2.5 MG tablet; Commonly known as: PRINIVIL,ZeSTRIL; 2.5 mg, Daily loratadine 10 MG tablet; Commonly known as: CLARITIN; 10 mg, Every morning metFORMIN 500 MG 24 hr tablet; Commonly known as: GLUCOPHAGE-XR; 1,000 mg, 2 times daily montelukast 10 MG tablet; Commonly known as: SINGULAIR; 10 mg, Nightly ondansetron 4 MG disintegrating tablet; Commonly known as: ZOFRAN-ODT; 4 mg, Every 8 hours PRN PANTOprazole 20 MG tablet; Commonly known as: PROTONIX; 20 mg, 2 times daily phenazopyridine 100 MG tablet; Commonly known as: PYRIDIUM; 100 mg, 3 times daily PRN vitamin with iron and folic acid 28-0.8 MG Tabs tablet; Commonly known as: VITAMINS; 1 tablet, Daily semaglutide 7 MG tablet; Commonly known as: RYBELSUS; 7 mg, Daily sucralfate 1 g tablet; Commonly known as: CARAFATE; 1 tablet, 4 times daily TRUEplus Lancets 33G Misc; TEST BLOOD SUGAR UP TO TWICE DAILY Ventolin HFA 108 (90 Base) MCG/ACT inhaler; Generic drug: albuterol; 2 puffs, Every 4 hours PRN STOPPED MEDICATIONS acetaminophen 650 MG CR tablet; Commonly known as: TYLENOL; Replaced by: acetaminophen 500 MG tablet; Future Appointments Date Time Provider Department Center 11/16/2025 1:00 PM Miguelina Gonsalves APRN [facility] [place] [facility] Follow Up Information Bharathi Amos MD Specialty: Surgery, Colorectal, Surgery, General Linda Murphy DO Specialty: Internal Medicine Continued care and services locations [facility] hospital findings:none Test Results Pending at Discharge Pending Labs Order Current Status Fungal Culture (non-blood) Preliminary result Fungal Culture (non-blood) Preliminary result Mycobacteria Culture (includes Acid Fast Smear) Preliminary result Mycobacteria Culture (includes Acid Fast Smear) Preliminary result Details of Hospital Stay HPI and Hospital Course Patient is a 55-year-old female with past medical history of bipolar disorder, schizophrenia, DANIEL, COPD (2 L nasal cannula nocturnally), NSCLC of LLL s/p lobectomy (02/2025), HTN, HLD, T2DM, papillarythyroid carcinoma s/p thyroidectomy, abnormal uterine bleeding, recent hospitalization for urosepsis and tubo-ovarian abscess discharged on 10/08 who presented initially to [facility] foraltered mental status, weakness, fatigue. Of note, patient was recently admitted at [facility] in September where she presented with back pain and was found to have urosepsis with imaging noting concern for TOA. She was treated with IV antibiotics and IR drainage. She was discharged on 10/08 on continued course of antibiotics. She reported feeling well until about 5 days prior to presentation. Patient reports complaints of increasing weakness, fatigue, nausea and decreased PO intake. At OSH patient was found to be tachycardic, febrile, hypotensive requiring Levophed. Labs significant for leukocytosis, acute renal failure. Imaging noted expansion of her previously visualized left adnexal collection and moderate hydronephrosis. She was given vancomycin, started on Levophed and transferred to [facility] for concern of worsening tubo-ovarian abscess. On arrival to , patient was weaned off Levophed and she remained hemodynamically stable. Labs significant for leukocytosis 26.9, H/H 7/21.6, BUN/Cr 45/3.83, K 3.2, HCO3 20, AG 19, lactic acid 0.9. BENDER MACHINE was consulted. IR was consulted with plan for drainage of TOA and bilateral PCNs due to bilateral hydronephrosis. Patient was admitted to [facility] for further management. On hospital day number 1 she was brought to IR and bilateral PCNs were placed. Additionally, there was a drain placed in the left adnexa exiting through the left lower quadrant as well as a right transgluteal drain terminating in the presacral space. There was return of purulent fluid and cultures were sent. On hospital day #3, she was evaluated on morning rounds and there was stool noted in the transgluteal drain, concerning for fistula versus iatrogenic injury with drain placement. Her leukocytosis worsened and BENDER MACHINE oncology was formally consulted who felt that she required a trip to the operating room for management of TOA. General surgery was consulted given presence of stool in her transgluteal drain and they desire to drain study prior to proceeding to the operating room. Ultimately, IR was consulted but given the acute nature of getting imaging done prior to going to operating room, decision was made to proceed with CT abdomen and pelvis with contrast pushed through both drains. The CT showed a fistulous connection between the transgluteal drain and the rectum. She was brought to the operating room that day with colorectal and general surgery. She underwent an exploratory laparotomy, washout of pelvis, flexible sigmoidoscopy, diverting loop ileostomy. The flexible sigmoidoscopy performed at the beginning the case showed a nontraumatic chronic rectal fistula. Once in the abdominal cavity, there was a hostile pelvis with significant adhesions. Once his adhesions were able to be taken down, there was an evolving partial large bowel obstruction noted and given this finding along with the rectal fistula, decision was made to perform diverting loop colostomy. The surgery went wellwithout complication. She was transferred to PACU in stable condition. On hospital day #4/postoperative day #1 she was noted to be very delirious requiring restraints [id number] sitter. Medicine was consulted who gave recommendations for medication management of herdelirium. She was otherwise doing well from a postoperative perspective and there was good functionof her ostomy. She was advanced to clear liquid diet. Her antibiotics were changed to Unasyn. On hospital day #5/postoperative day #2, her delirium had started to improve and she was advanced to a clear liquid diet. Her psychiatric medications were restarted and there was good improvement in her mental status at this point. She was noted to be quite anemic, therefore she was transfused with1 unit PRBCs. On hospital day #6/postoperative day #3, she continued to be anemic and received an additional unitof PRBCs. She was advanced to low residue diet. On hospital day #7/postoperative day #4, there was purulent drainage from her midline vertical incision at the inferior aspect. Vernon were removed and area of purulent fluid and this was opened at bedside. The fascia was palpated to be intact. It was irrigated and then a wet-to-dry dressing was placed. Over the remainder of her hospitalization, she required wet-to-dry dressings twice a day. On postoperative day #7, there was need to remove additional humza to just below the umbilicus. The complex human resources manager performed teaching and evaluated given concern for leakage of stool out of ostomy appliance into the incision. Case management began to coordinate for her to go home with IV antibiotics and packingchanges. On postoperative day #9 her left adnexal IR drain was removed without issue. She had a PICC line placed for long-term IV antibiotics. The patient met all criteria for discharge home on POD#12. She was discharged home with outpatient IV antibiotics with VNA services for a total of 4 weeks from day of surgery. Procedures: Surgical/Procedural Cases on this Admission Case IDs Date Procedure Surgeon Location Status [id number] 10/23/25 CT Abscess Drain (Retro) W/Guidance Bibiana Mcwilliams MD CT Comp [id number] 10/23/25 IR Inject Nephrostogram New Access-Bilat W/Guidance Bibiana Mcwilliams MD IR Comp [id number] 10/25/25 WASHOUT ABDOMINAL Eddie Alicia MD Main OR Comp Diagnostic Studies: Notable labs are: Lab Results Component Value Date WBC 16.2 (H) 11/04/2025 HGB 8.7 (L) 11/04/2025 HGB 9.9 (L) 10/25/2025 HCT 27.8 (L) 11/04/2025 HCT 29.0 (L) 10/25/2025 PLT 677 (H) 11/04/2025 Lab Results Component Value Date NA 137 11/04/2025 NA 145 10/25/2025 K 3.9 11/04/2025 K 4.0 10/25/2025 CL 100 11/04/2025 CO2 26 11/04/2025 CO2 25 10/25/2025 BUN 10 11/04/2025 CREAT 1.14 (H) 11/04/2025 GLUC 183 (H) 11/05/2025 GLUC 137 (H) 11/04/2025 GLUC 146 (H) 10/25/2025 Lab Results Component Value Date MG 1.5 (L) 11/04/2025 Lab Results Component Value Date PHOS 4.1 11/04/2025 Physical Exam at Discharge Discharge Condition: good Last Vitals: Pulse:74,Resp:18,BP:100/60,SpO2:98 %,Weight: 96.6 kg (212 lb 15.4 oz) BMI: Body mass index is 32.62 kg/m??. Temp Last 24 hrs: Temp Min: 96.8 ??F (36 ??C) Max: 97.6 ??F (36.4 ??C) Per AM documentation Gen: No apparent distress, alert and oriented Pulm: No increased work of breathing Abd: Soft, non tender, non-distended, no rebound or guarding Incisions: Clean, dry; superior aspect of incision remains reapproximated; remainder of humza removed with steri strips placed. Inferior aspect remains opened and packing with green drainage on it.Packing changed, tissue appears healthy. Ostomy with stool and gas; Right transgluteal drain with minimal drainage; RLQ drain with serosanguinous drainage; PCNs with clear urine Ext: calves equal and nontender, SCDs in place Discharge Orders Amb Referral to Home Health Referral Priority: Routine Referral Type: Home Health Number of Visits Requested: 999 Activity as tolerated Do not drive while taking narcotics Increase activity as tolerated Lifting restrictions May return to previous exercise routine No activity restrictions No hot tubs, swimming, or tub baths Order Comments: Until cleared by provider Other restrictions (specifiy) Order Comments: No sexual activity until cleared by your doctor DISCHARGE DIET Diet Regular Diet (no dietary restrictions) Call your doctor for: Abdominal pain/constipation or diarrhea Call your doctor for: Black or tarry stools Call your doctor for: Fever or chills Call your doctor for: Inability to pass urine or blood in urine Call your doctor for: Green or brown sputum Call your doctor for: Persistent nausea or vomiting Call your doctor for: Vaginal bleeding more than 1 pad per hour Call your doctor for: Severe pain not controlled by your medication Call your doctor for: Shortness of breath Call your doctor for: Significant change in your bowel pattern Call your doctor for: The same symptoms that brought you to the hospital Discharge wound care instructions Order Comments: If tegaderm dressings placed, can remove in 72 hours If steri strips placed, can remove in 2 weeks If glue placed, can peel off in 2 weeks Frequency of dressing change Other Specify wet to dry dressings twice daily Site Abdomen Wound Type Surgical Wound Cleanse with Routine bathing Code Status: Code Status Procedures Full code Marnie Calloway MD 11/05/2025 10:32 AM Cosigned by Tisha Shah MD at 11/05/2025 10:48 AM EST documented in this encounter Discharge Instructions * Discharge Instr - Other Orders* Yvon Velez MD - 11/02/2025 7:56 AM EST New ostomy instructions 1. Measure and record ileostomy outputs daily. Please bring records to your follow-up visit 2. Drink at least 64 ounces of fluid daily 3. If you have to get up at night empty ostomy bag and take 8-12 fluid ounces of fluid 4. If you become dizzy, weak, have decreased or concentrated urine output; take 24 ounces of fluid and call the office 5. Empty ostomy bag when 1/3 to 1/2 full 6. Check your chemistry (lab work) 2 to 3 days after leaving the hospital 7. If output greater than 1.5 liters a day, notify office * Discharge Instr - Incision/Wound/Pressure Ulcer/Ostomy* Alicia Torrez RN - 10/29/2025 10:35 AM EST Wound program consult for ostomy management Ostomy care: - Empty pouch when 1/3-1/2 full. Apply new pouching system every 3-5 days. - Use adhesive remover to loosen tape border. - Clean skin with warm water only and washcloth. (Do not use scented soaps, alcohol, or baby wipes around the stoma) - Measure stoma and cut wafer to exact size - Prep surrounding skin with Coloplast barrier spray (#[id number]), air dry. If peristomal skin red apply stoma powder first and dust off excess, then apply barrier spray. Let dry. - Apply small amount of stoma paste to inner edge of wafer opening from 3-9:00 - Apply new pouch, Esteem Body #[id number] one piece convex cut to fit. - Apply barrier strips to edges of wafer - Hold in place for 5-10 Minutes using warmth of hands to secure wafer *If patient begins to leak from 3-9:00, may try adding venancio ring to that area to better fill concavity of peristomal skin documented in this encounter Medications at Time of Discharge ARIPiprazole (ABILIFY) 20 MG tablet Take 1 tablet (20 mg total) by mouth daily. 10/18/2025 ascorbic acid 250 MG tablet Take 1 tablet (250 mg total) by mouth daily. 12/23/2024 Aspirin Low Dose 81 MG EC tablet Take 1 tablet (81 mg total) by mouth nightly. atorvastatin (LIPITOR) 40 MG tablet Take 1 tablet (40 mg total) by mouth nightly. 09/27/2025 baclofen (LIORESAL) 10 MG tablet Take 1 tablet (10 mg total) by mouth 3 (three) times a day. 10/01/2025 Blood Glucose Monitoring Suppl (FreeStyle Wayzata Lite) w/Device Kit USE TO TEST BLOOD SUGAR TWICE DAILY AND DIRECTED 09/15/2025 buPROPion (WELLBUTRIN XL) 300 MG 24 hr tablet Take 1 tablet (300 mg total) by mouth every morning. 10/18/2025 clonazePAM (KlonoPIN) 1 MG tablet Take 1 tablet (1 mg total) by mouth 2 times daily (every 12 hours) as needed for anxiety. diclofenac (VOLTAREN) 1 % gel Apply topically. 07/20/2025 docusate sodium (COLACE) 100 MG capsule Take 1 capsule (100 mg total) by mouth 2 (two) times a day. 10/15/2025 ferrous sulfate 325 (65 FE) MG EC tablet Take 1 tablet (325 mg total) by mouth daily. 08/31/2025 FREESTYLE LITE strip 1 test strip by Other (specify) route 2 times a day. 08/31/2025 gabapentin (NEURONTIN) 600 MG tablet Take 1 tablet (600 mg total) by mouth 3 (three) times a day. 08/06/2025 glipiZIDE (GLUCOTROL) 5 MG tablet Take 1 tablet (5 mg total) by mouth 2 (two) times a day before meals. haloperidol (HALDOL) 5 MG tablet Take 0.5 tablets (2.5 mg total) by mouth 2 (two) times a day. 10/18/2025 hydrOXYzine pamoate (VISTARIL) 50 MG capsule Take 1 capsule (50 mg total) by mouth 3 (three) times a day as needed. 10/18/2025 Levothyroxine Sodium 200 MCG/ML Solution Take 200 mcg by mouth daily. 10/01/2025 lisinopril (PRINIVIL,ZeSTRIL) 2.5 MG tablet Take 1 tablet (2.5 mg total) by mouth daily. 12/23/2024 loratadine (CLARITIN) 10 MG tablet Take 1 tablet (10 mg total) by mouth every morning. 10/27/2024 metFORMIN (GLUCOPHAGE-XR) 500 MG 24 hr tablet Take 2 tablets (1,000 mg total) by mouth 2 times a day. 09/02/2025 montelukast (SINGULAIR) 10 MG tablet Take 1 tablet (10 mg total) by mouth nightly. 02/01/2025 ondansetron (ZOFRAN-ODT) 4 MG disintegrating tablet Take 1 tablet (4 mg total) by mouth 3 times daily (every 8 hours) as needed for nausea or vomiting. 09/16/2025 PANTOprazole (PROTONIX) 20 MG tablet Take 1 tablet (20 mg total) by mouth 2 times a day. 12/23/2024 phenazopyridine (PYRIDIUM) 100 MG tablet Take 1 tablet (100 mg total) by mouth 3 (three) times a day as needed for bladder spasms. 09/20/2025 vitamin with iron and folic acid ( VITAMINS) 28-0.8 MG Tab tablet Take 1 tablet by mouth daily. 01/29/2025 semaglutide (RYBELSUS) 7 MG PO tablet Take 1 tablet (7 mg total) by mouth daily. 12/15/2024 sucralfate (CARAFATE) 1 g tablet 1 tablet (1 g total) by Mouth/Oral Cavity route 4 (four) times a day. 09/17/2025 [facility] BLOOD SUGAR UP TO TWICE DAILY 09/03/2025 Ventolin HFA 108 (90 Base) MCG/ACT inhaler Inhale 2 puffs every 4 (four) hours as needed for wheezing or shortness of breath. 06/28/2025 acetaminophen (TYLENOL) 500 MG tabletIndications:Tu cleve-ovarian abscess Take 1 tablet (500 mg total) by mouth 4 times daily (every 6 hours) as needed for mild pain. 11/05/2025 ampicillin-sulbactam 3 g in sodium chloride-MBP 0.9% 100 mL IVPBIndications:Tubo -ovarian abscess Infuse 3 g into a venous catheter every 6 (six) hours. 11/05/2025 levothyroxine (SYNTHROID, LEVOTHROID) 125 MCG tabletIndications:Tu cleve-ovarian abscess Take 2 tablets (250 mcg total) by mouth daily on an empty stomach. 60 tablet 11/06/2025 6 documented as of this encounter Progress Notes * Lia Kirby RN - 11/05/2025 10:59 AM EST 11/05/25 1059 Plan Plan home with services Patient/Family in Agreement with Plan yes Plan Comments [facility] and [facility] Final Discharge Disposition Code 06 - home with home health care Final Case Management Care Plan Note Summary: Per provider, patient is medically ready to transition home/home with services. Confirmed that patient is able to obtain medications/food/necessities post discharge. Final Destination:Home with spouse, [facility] for home IV Unasyn and [facility] for SN services. Spoke with [facility] today and they are prepared for a 2pm visit. Documents faxed to them at their request. [facility] delivered supplies on 11/02. Plan for home support/Caregiver/responsible person:self/spouse Follow-up provider appointment: Per AVS/W-10 Equipment Ordered and Given at Discharge: [facility] Supplies, RN will send home with wound care supplies Final Discharge Transportation: spouse * Mare Cruz MD - 11/05/2025 7:19 AM EST Gynecology Oncology Progress Note Assessment & Plan 55 y.o. female admitted due to worsening TOA, POD#13 s/p IR-guided placement of bilateral PCNs and intraabdominal drains, and POD#11 s/p exploratory laparotomy, abdominal washout, loop colostomy and flexible sigmoidoscopy for partial LBO and rectal fistula. Patient recovering appropriately at this time and is pending discharge home with [facility] services today. Plan Neuro: MMPR with oxycodone, gabapentin; holding NSAIDs -Wellbutrin, Abilify, Atarax, and Haldol ordered CV/Resp: COPD on 2L NC at baseline however saturating well ORA -Lipitor ordered, home ASA held GI/Endo: NPO >> Low residue diet (11/02), tolerated well -Surgery following, appreciate recommendations -it infrastructure manager following, appreciate recommendations; BID packing changes Renal/: voiding independently, bilateral PCNs in place -Strict I/Os Heme: Hgb 7.5 > 6.4 >> 2u pRBCs >> 9.0 > 8.7 and stable ID: Zosyn > Rocephin/Flagyl > Unasyn, with plan for at least 4 weeks (from OR) on discharge -Ovarian abscess culture +E.coli, S.constellatus and mixed anaerobes (10/23) -Sacral abscess culture +Enterococcus, E.coli, S.constellatus and mixed anaerobes -WBC down trending and afebrile LDAs: 12 [place] drain and right transgluteal area draining presacral abscess with minimal output - Bilateral 10 [place] percutaneous nephrostomy tubes - Juan drain in right lower quadrant draining left adnexal abscess Mare Cruz MD PGY4 [facility]Y JANITOR Resident 11/05/2025 7:19 AM (p) [phone] Subjective Patient doing well this morning. Pain well-controlled with pain medication. Ambulating without issue. Voiding in addition to PCNs. Tolerating regular diet without nausea/vomiting. Objective Physical exam Last Vitals: Vitals: 11/05/25 0336 BP: (!) 104/56 Pulse: 68 Resp: 18 Temp: 96.8 ??F (36 ??C) SpO2: 99% Weight: Height: Intake/Output Summary (Last 24 hours) at 11/05/2025 0719 Last data filed at 11/05/2025 0710 Gross per 24 hour Intake 1210 ml Output 2535 ml Net -1325 ml Gen: No apparent distress, alert and oriented Pulm: No increased work of breathing Abd: Soft, non tender, non-distended, no rebound or guarding Incisions: Clean, dry; superior aspect of incision remains reapproximated; remainder of humza removed with steri strips placed. Inferior aspect remains opened and packing with green drainage on it.Packing changed, tissue appears healthy. Ostomy with stool and gas; Right transgluteal drain with minimal drainage; RLQ drain with serosanguinous drainage; PCNs with clear urine Ext: calves equal and nontender, SCDs in place Labs: Recent Results (from the past 24 hours) POCT Glucose, Fingerstick Collection Time: 11/04/25 8:29 AM Specimen: Blood Result Value Ref Range POC Glucose 158 (H) 65 - 99 mg/dL POCT Glucose, Fingerstick Collection Time: 11/04/25 12:41 PM Specimen: Blood Result Value Ref Range POC Glucose 137 (H) 65 - 99 mg/dL POCT Glucose, Fingerstick Collection Time: 11/04/25 4:16 PM Specimen: Blood Result Value Ref Range POC Glucose 196 (H) 65 - 99 mg/dL POCT Glucose, Fingerstick Collection Time: 11/04/25 8:43 PM Specimen: Blood Result Value Ref Range POC Glucose 275 (H) 65 - 99 mg/dL POCT Glucose, Fingerstick Collection Time: 11/05/25 12:18 AM Specimen: Blood Result Value Ref Range POC Glucose 187 (H) 65 - 99 mg/dL POCT Glucose, Fingerstick Collection Time: 11/05/25 3:47 AM Specimen: Blood Result Value Ref Range POC Glucose 185 (H) 65 - 99 mg/dL Cosigned by Tisha Shah MD at 11/05/2025 10:33 AM EST Associated attestation - Tisha Shah MD - 11/05/2025 10:33 AM EST Teaching Physician Attestation Level of Participation I have personally interviewed and examined the patient and reviewed Dr. Cruz's note. I agree with the history, exam, assessment and plan as detailed in the resident/fellow's note with the following additions/exceptions/observations:wound inspected. Clean, no signs infection, suspect green colornoted by residentthis AM was some contamination from her ostomy. No leaking from current appliance.Ready for discharge as planned. * Marnei Calloway MD - 11/04/2025 11:59 AM EST BENDER MACHINE/ONC Progress Note Assessment & Plan Assessment Sis Valdez is a 55 y.o. female admitted due to worsening TOA, POD#11 s/p IR-guided placement of bilateral PCNs and intraabdominal drains, and POD#9 s/p exploratory laparotomy, abdominalwashout, loop colostomy and flexible sigmoidoscopy for partial LBO and rectal fistula. Patient recovering appropriately at this time and is pending discharge home with [facility]NA services on 11/05 Plan Neuro: MMPR with oxycodone, gabapentin; holding NSAIDs held due to MADELINE -Wellbutrin, Abilify, Atarax, and Haldol ordered CV/Resp: COPD on 2L NC at baseline however saturating well ORA -Lipitor ordered, home ASA held GI/Endo: NPO >> Low residue diet (11/02), tolerated well -Surgery following, appreciate recommendations -it infrastructure manager following, appreciate recommendations; BID packing changes Renal/: voiding independently, bilateral PCNs in place -Strict I/Os Heme: Hgb 7.5 > 6.4 >> 2u pRBCs >> 9.0 > 8.7 and stable ID: Zosyn > Rocephin/Flagyl > Unasyn, with plan for at least 4 weeks (from OR) on discharge -Ovarian abscess culture +E.coli, S.constellatus and mixed anaerobes (10/23) -Sacral abscess culture +Enterococcus, E.coli, S.constellatus and mixed anaerobes LDAs: 12 [place] drain and right transgluteal area draining presacral abscess with minimal output - Bilateral 10 [place] percutaneous nephrostomy tubes - Juan drain in right lower quadrant draining left adnexal abscess VTE Time Out Caprini SCORE: 7 (10/25/2025 9:06 PM) Interpretation - High Risk Chemical Prophylaxis enoxaparin (LOVENOX) syringe 40 mg Subcutaneous Every 24 hours scheduled Enoxaparin Sodium 40 mg Last dose 11/04/2025 8:30 AM Mechanical Prophylaxis SCDs are ordered - Bilateral (Knee High) Dispo: anticipate discharge home tomorrow with [facility]NA services Sign: Marnie Calloway MD, Msc, PGY-4 [facility] DRY JANITOR (p) [phone] Available on [employer] 11/04/2025 11:59 AM Subjective Patient seen and evaluated bedside, resting comfortably in bed. She states that she is doing well and her pain was well-controlled overnight. She is voiding independently without difficulty and ambulating. She is tolerating a low fiber diet without nausea or vomiting. She denies chest pain, shortness of breath, and ROS is otherwise negative. Objective Physical exam Last Vitals: Vitals: 11/03/25 1602 11/03/25 1933 11/03/25 2104 11/03/25 2254 BP: 130/64 122/72 110/60 Pulse: 80 82 76 Resp: 18 18 18 Temp: 96.8 ??F (36 ??C) 97.8 ??F (36.6 ??C) 97 ??F (36.1 ??C) SpO2: 98% 98% 98% 97% 11/04/25 0310 11/04/25 0401 11/04/25 0822 11/04/25 1128 BP: 108/62 110/64 120/64 Pulse: 80 84 72 76 Resp: 18 18 18 Temp: 97 ??F (36.1 ??C) 97 ??F (36.1 ??C) SpO2: 98% 98% 97% 96% Intake/Output Summary (Last 24 hours) at 11/04/2025 1159 Last data filed at 11/04/2025 1128 Gross per 24 hour Intake 1140 ml Output 3910 ml Net -2770 ml General: No acute distress, pleasant and cooperative Pulmonary: non-labored breathing on room air Abdomen: soft, non-tender, non-distended. Ostomy in place with gas and stool. Midline vertical incision appears clean/dry with the top half intact and closed with humza. The inferior aspect of incision is open and packed with Kerlix bandage, minimal drainage Extremities: symmetrical, no edema, no erythema, non-tender. SCDs in place Labs: Lab Results Component Value Date WBC 16.2 (H) 11/04/2025 HGB 8.7 (L) 11/04/2025 HCT 27.8 (L) 11/04/2025 MCV 84 11/04/2025 PLT 677 (H) 11/04/2025 Lab Results Component Value Date GLUC 158 (H) 11/04/2025 CALCIUM 8.9 11/04/2025 NA 137 11/04/2025 K 3.9 11/04/2025 CO2 26 11/04/2025 CL 100 11/04/2025 BUN 10 11/04/2025 CREAT 1.14 (H) 11/04/2025 Cosigned by Tisha Shah MD at 11/04/2025 2:11 PM EST Associated attestation - Tisha Shah MD - 11/04/2025 2:11 PM EST Teaching Physician Attestation Level of Participation I have personally interviewed and examined the patient and reviewed Dr. Calloway's note. I agree with the history, exam, assessment and plan as detailed in the resident/fellow's note with the following ad ditions/exceptions/observations:doing well, home tomorrow once services in place. Humza out tomorrow prior to discharge, will be POD12. * Mare Cruz MD - 11/03/2025 4:52 PM EST Gynecology Oncology Progress Note Assessment & Plan 55 y.o. admitted as a transfer from outside hospital due to worsening TOA POD#10 s/p IR guided placement of bilateral PCN and intra-abdominal drains now POD#8 s/p exploratory laparotomy, abdominal washout, loop colostomy and flex sigmoidoscopy for TOA, partial LBO, and rectal fistula. Recovering appropriately in postoperative setting - now with superficial wound dehiscence requiring packing changes. Continuing to improve clinically. Today had PICC placed for IV antibiotics. Ostomy appliance continues to intermittently leak stool into her wound despite complex human resources manager re-evaluating and fitting appliance, will continue to monitor and clean/re-dress as needed when leaking is noted. Packing change per formed. Vernon to stay in place until day of discharge per colorectal surgery. Plan otherwise per AM note. Mare Cruz MD PGY4 [facility] DRY JANITOR Resident 11/03/2025 4:52 PM (p) [phone] Subjective Patient doing very well this afternoon, continuing to feel better. Objective Physical exam Last Vitals: Vitals: 11/03/25 1602 BP: 130/64 Pulse: 80 Resp: 18 Temp: 96.8 ??F (36 ??C) SpO2: 98% Weight: Height: Intake/Output Summary (Last 24 hours) at 11/03/2025 1652 Last data filed at 11/03/2025 1602 Gross per 24 hour Intake 1493 ml Output 3900 ml Net -2407 ml Gen: No apparent distress, alert and oriented Pulm: No increased work of breathing Abd: Soft, non tender, non-distended, no rebound or guarding Incisions: Clean, dry, intact with humza in superior portion and open wound packed with kerlex ininferior portion. Transgluteal and right lower quadrant surgical drains remain in place; bialteral PCNs with right containing blood tinged urine Labs: Recent Results (from the past 24 hours) POCT Glucose, Fingerstick Collection Time: 11/02/25 8:16 PM Specimen: Blood Result Value Ref Range POC Glucose 255 (H) 65 - 99 mg/dL POCT Glucose, Fingerstick Collection Time: 11/03/25 12:33 AM Specimen: Blood Result Value Ref Range POC Glucose 170 (H) 65 - 99 mg/dL POCT Glucose, Fingerstick Collection Time: 11/03/25 4:12 AM Specimen: Blood Result Value Ref Range POC Glucose 159 (H) 65 - 99 mg/dL COMPLETE BLOOD COUNT, WITHOUT DIFFERENTIAL Collection Time: 11/03/25 7:35 AM Specimen: Blood Result Value Ref Range White Blood Cell Count 21.5 (H) 4.0 - 11.0 Thou/uL Platelet Count 636 (H) 150 - 450 Thou/uL Hemoglobin 8.6 (L) 11.7 - 15.7 g/dL Hematocrit 27.5 (L) 35.0 - 47.0 % Red Blood Cell Count 3.25 (L) 4.00 - 5.40 Mil/uL MCV 85 80 - 100 fL MCH 26.5 (L) 27.0 - 31.0 pg MCHC 31.3 30.0 - 36.0 g/dL RDW 18.0 (H) 11.5 - 14.5 % MPV 9.5 7.5 - 12.5 fL Basic Metabolic Panel Collection Time: 11/03/25 7:35 AM Specimen: Blood Result Value Ref Range Glucose 146 (H) 65 - 99 mg/dL Blood Urea Nitrogen (BUN) 6 (L) 8 - 21 mg/dL Creatinine 1.05 0.40 - 1.10 mg/dL eGFR 64 >59 Sodium 139 136 - 145 mmol/L Potassium 4.0 3.4 - 5.3 mmol/L Chloride 102 98 - 107 mmol/L CO2 28 22 - 33 mmol/L Anion Gap 9 7 - 17 Calcium 8.5 (L) 8.7 - 10.5 mg/dL BUN/Creatinine Ratio 6 (L) 10.0 - 25.0 Ratio Magnesium Collection Time: 11/03/25 7:35 AM Specimen: Blood Result Value Ref Range Magnesium 1.5 (L) 1.6 - 2.7 mg/dL Phosphorus Collection Time: 11/03/25 7:35 AM Specimen: Blood Result Value Ref Range Phosphorus 3.4 2.7 - 4.5 mg/dL POCT Glucose, Fingerstick Collection Time: 11/03/25 8:22 AM Specimen: Blood Result Value Ref Range POC Glucose 154 (H) 65 - 99 mg/dL POCT Glucose, Fingerstick Collection Time: 11/03/25 12:33 PM Specimen: Blood Result Value Ref Range POC Glucose 167 (H) 65 - 99 mg/dL POCT Glucose, Fingerstick Collection Time: 11/03/25 4:12 PM Specimen: Blood Result Value Ref Range POC Glucose 176 (H) 65 - 99 mg/dL * Mare Curz MD - 11/03/2025 7:36 AM EST Gynecology Oncology Progress Note Assessment & Plan 55 y.o. admitted as a transfer from outside hospital due to worsening TOA POD#9 s/p IR guided placement of bilateral PCN and intra-abdominal drains now POD#7 s/p exploratory laparotomy, abdominal washout, loop colostomy and flex sigmoidoscopy for TOA, partial LBO, and rectal fistula. Recovering appropriately in postoperative setting - now with superficial wound dehiscence requiring packing changes. Continuing to improve clinically. Plan Neuro: Home psych meds restarted Medicine following MMPR with IV Tylenol and Dilaudid PRN. Holding NSAIDs due to MADELINE. CV/Pulm: COPD on 2L NC at baseline; currently saturating well on RA Lipitor ordered; home ASA held Heme: Hgb 7.5 >> 6.4 > 1u pRBCs > 7.5 > 1u pRBCs > 9.2 >> 9.0 > AM labs pending ID: Antibiotics transitioned from Zosyn to CTX/Flagyl per ID > Unasyn, will need at least 4 weeks IVfrom OR date, recommending repeat CT 2 weeks after surgery to assess size Ovarian abscess culture grew E.coli, S.constellatus and mixed anaerobes 10/23 Sacral abscess culture grew Enterococcus species (Amp-S, PCN-S), E.coli, S.constellatus and mixed anaerobes. GI: NPO > Clears > Low residue diet (10/28) > CLD (10/29) > Low residue (11/02) Diet per Surgery Surgery following, appreciate recommendations it infrastructure manager teaching BID packing changes : Petty out and patient voiding; bilateral PCNs in place Strict I/Os Endocrine T2DM, FS/ISS Drains: New Juan drain placed in left adnexa abscess bed anterior to existing 10 Fr mini loop drain placedby IR on 10/23, exiting through right lower quadrant Existing 12 Fr drain placed in presacral abscess (right transgluteal) Existing 10 Fr mini loop drain in left adnexa removed this morning Existing bilateral 10 Fr percutaneous nephrosotomy tubes CT A/P w/ IV and PO contrast to evaluate drains and interval change in TOAs pending DVT ppx: Encourage ambulation, SCDs on and in place, lovenox Dispo: continue inpatient management; working with case coordination to coordinate home health care Mare Cruz MD PGY4 [facility] DRY JANITOR Resident 11/03/2025 7:36 AM (p) [phone] Subjective Patient doing well this morning. Pain well-controlled with pain medication. Ambulating regularly. Voiding spontaneously and via PCNs. Tolerating low fiber diet without nausea/vomiting. Denies chest pain, shortness of breath, nausea, vomiting. Objective Physical exam Last Vitals: Vitals: 11/03/25 0405 BP: 130/60 Pulse: 60 Resp: 18 Temp: 97.6 ??F (36.4 ??C) SpO2: 100% Weight: Height: Intake/Output Summary (Last 24 hours) at 11/03/2025 0736 Last data filed at 11/03/2025 0405 Gross per 24 hour Intake 1250 ml Output 3456 ml Net -2206 ml Gen: No apparent distress, alert and oriented Pulm: No increased work of breathing Abd: Soft, non tender, non-distended, no rebound or guarding; ostomy with gas and stool Incisions: Clean, dry, intact with humza; inferior aspect open and packed with drainage Ext: calves equal and nontender, SCDs in place Labs: Recent Results (from the past 24 hours) POCT Glucose, Fingerstick Collection Time: 11/02/25 8:39 AM Specimen: Blood Result Value Ref Range POC Glucose 146 (H) 65 - 99 mg/dL POCT Glucose, Fingerstick Collection Time: 11/02/25 11:53 AM Specimen: Blood Result Value Ref Range POC Glucose 240 (H) 65 - 99 mg/dL POCT Glucose, Fingerstick Collection Time: 11/02/25 4:29 PM Specimen: Blood Result Value Ref Range POC Glucose 186 (H) 65 - 99 mg/dL POCT Glucose, Fingerstick Collection Time: 11/02/25 8:16 PM Specimen: Blood Result Value Ref Range POC Glucose 255 (H) 65 - 99 mg/dL POCT Glucose, Fingerstick Collection Time: 11/03/25 12:33 AM Specimen: Blood Result Value Ref Range POC Glucose 170 (H) 65 - 99 mg/dL POCT Glucose, Fingerstick Collection Time: 11/03/25 4:12 AM Specimen: Blood Result Value Ref Range POC Glucose 159 (H) 65 - 99 mg/dL Cosigned by Tisha Shah MD at 11/03/2025 10:54 AM EST Associated attestation - Tisha Shah MD - 11/03/2025 10:54 AM EST Teaching Physician Attestation Level of Participation I have personally interviewed and examined the patient and reviewed Dr. Cruz's note. I agree with the history, exam, assessment and plan as detailed in the resident/fellow's note with the following additions/exceptions/observations:SIOMARA has arranged HC from a [employer] agency and can start tomorrow. Will remove remainder of humza today and plan for transition home tomorrow morning. She will need a CT scan done 4 weeks post op and abx continued til that is read. We will also set her up with apppointment with for 4 weeks post op. * Malu Castro PA-C - 11/02/2025 4:03 PM EST BENDER MACHINE/ONC PM Progress Note Assessment & Plan Assessment 55 y.o. admitted as a transfer from outside hospital due to worsening TOA POD#9 s/p IR guided placement of bilateral PCN and intra-abdominal drains now POD#7 s/p exploratory laparotomy, abdominal washout, loop colostomy and flex sigmoidoscopy for TOA, partial LBO, and rectal fistula. Recovering appropriately in postoperative setting - now with superficial wound dehiscence requiring packing changes. Awaiting final read on repeat CT, prelim read with increased left pelvic fluid collection. Overall afebrile and continuing to progress in postoperative period. Plan -Packing changed this afternoon - Continue discharge planning - Remainder of plan per AM note Malu Castro PA-C 11/02/2025 4:04 PM Subjective Patient doing well, offers no complaints. Objective Physical Exam BP 130/70 (BP Location: Right arm, Patient Position: Lying) Pulse 72 Temp 98.3 ??F (36.8 ??C) (Tympanic) Resp 18 Ht 1.721 m (5' 7.75 ) Wt 96.6 kg (212 lb 15.4 oz) SpO2 97% BMI 32.62 kg/m?? Intake/Output Summary (Last 24 hours) at 11/02/2025 1604 Last data filed at 11/02/2025 1532 Gross per 24 hour Intake 1740 ml Output 3761 ml Net -2021 ml Gen: NAD, AOx3 Abd: Soft, appropriately tender to palpation, no rebound or guarding. Ostomy pink with output. Incisions: MVI with humza on superior portion, lower half packed with kerlex. Kerlex removed, tissue beefy pink. Dressing replaced. B/L nephorstomy tubes in tube as well as RLQ, transgluteal & LLQ drains. Ext: NT, no edema, SCD's in place bilaterally * Jenny Sanches MD - 11/02/2025 1:11 PM EST Images from the original note were not included. ON LICENSE OF [facility] ID Progress Note Name: Sis Valdez Age: 55 y.o. Sex: female ASSESSMENT & PLAN Sis Valdez is a 55 year-old female with history of DM, DANIEL, thyroid cancer s/p resection, lung cancer s/p resection, recurrent uterine bleeding who was transferred from [facility] for escalation of care in the setting of tubo- ovarian abscess, acute renal failure and shock She was recently admitted to [facility] 10/01-10/08 due to TOA and MADELINE. She underwent IR drainage but no drain was left in. Culture from IR drainage was negative. She was givem meropenem in thebeginning and was discharged on Amox- clav and Flagyl. She was off treatment for 10 days. Assessment: 1) Tubo-ovarian abscess 2) Rectal fistula 3) Bilateral severe hydroureteronephrosis s/p PCN placement, improved 4) MADELINE - s/p exploratory laparotomy, abdominal washout, drainage of pelvic abscess on 10/25. A pinpoint rectal fistula was found on flexible sigmoidoscopy. 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 There is no Actinomyces growth noted from the culture from 10/23 after 5 days. No OR cultures were sent on 10/25. Plan: Continue IV Unasyn 3g q6hr. Would plan to follow up CT in 2 weeks from surgery (around 11/08). Monitor WBC, trending down at this time. She will be on antibiotics until abscess resolution, anticipating 4 weeks from the OR date ANTIBIOTIC TIME OUT Current antibiotic/day of therapy: Anti-infectives (From admission, onward) Start Dose/Rate Route Frequency Ordered Stop 10/26/25 1800 ampicillin-sulbactam (UNASYN) 3 g in sodium chloride-MBP (NS) 100 mL IVPB-MBP 3 g 100 mL/hr over 60 Minutes Intravenous Every 6 hours 10/26/25 1420 SUBJECTIVE NAEO. She is sitting up in the chair today and feeling better. She was told one drain will be removed. OBJECTIVE Physical Examination: Vitals: 11/02/25 1624 BP: 130/70 Pulse: 82 Resp: 18 Temp: 98.4 ??F (36.9 ??C) SpO2: 97% Weight: Height: No changes General appearance - awake, NAD HEENT - EOMI Abdomen -soft, distended, inferior part of surgical site is packed with cauze. multiple abscess drains (RLQ, LLQ, transgluteal), 2 PCNs, colostomy bag in place SKIN- No rash or ulcer Neuro- AOx3 LABORATORY AND DIAGNOSTIC DATA: Lab and imaging data were reviewed by me Hairston. Diff negative -Blood cultures 10/22: NG -MRSA Nares negative OR culture+Enterococcus species (Amp-S, PCN-S), E.coli, S.constellatus and mixed anaerobes. Urine culture K.pneumoniae Results from last 7 days Lab Units 11/02/25 0654 11/01/25 0402 10/31/25 0729 WHITE BLOOD CELL COUNT Thou/uL 23.1* 25.7* 27.0* HEMOGLOBIN g/dL 8.2* 9.0* 9.1* HEMATOCRIT % 27.2* 29.3* 28.4* PLATELET COUNT Thou/uL 637* 551* 504* Results from last 7 days Lab Units 11/02/25 1629 11/02/25 1153 11/02/25 0839 11/02/25 0654 11/01/25 0414 11/01/25 0402 10/31/25 0752 10/31/25 0729 SODIUM mmol/L -- -- -- 142 -- 142 -- 142 POTASSIUM mmol/L -- -- -- 4.0 -- 4.1 -- 3.5 CHLORIDE mmol/L -- -- -- 105 -- 108* -- 106 CO2 mmol/L -- -- -- 25 -- 24 -- 24 BUN mg/dL -- -- -- 5* -- 6* -- 4* CREATININE mg/dL -- -- -- 1.02 -- 1.03 -- 0.98 CALCIUM mg/dL -- -- -- 8.3* -- 7.9* -- 8.0* GLUCOSE mg/dL -- -- -- 140* -- 134* -- 126* GLUCOSE, POC mg/dL 186* 240* 146* -- < > -- < > -- EGFR -- -- -- 66 -- 65 -- 69 < > = values in this interval not displayed. Lab Results Component Value Date ALT 28 10/22/2025 AST 56 (H) 10/22/2025 ALKPHOS 125 (H) 10/22/2025 BILITOT 0.3 10/22/2025 proBNP, N-terminal Date Value Ref Range Status 10/23/2025 1,039 (H) <125 pg/mL Final No results found for: SEDRATE No results found for: CRP Blood Cultures: Lab Results Component Value Date CULTURE 10/23/2025 No aerobes isolated after 3 days and no anaerobes isolated after 5 days. Urine Cultures: Lab Results Component Value Date HYALNCSTUA Present 10/22/2025 BILIUA Negative 10/22/2025 BLOODUA Small (A) 10/22/2025 CLARITYUA Cloudy 10/22/2025 COLORUA Yellow 10/22/2025 KETONESUA Negative 10/22/2025 LEUKOCYTESUA Moderate (A) 10/22/2025 NITRITEUA Negative 10/22/2025 PHUA 5.0 10/22/2025 PROTEINUA Trace (A) 10/22/2025 RBCUA 1 10/22/2025 SPECGRAVUA 1.010 10/22/2025 WBCUA >25 (H) 10/22/2025 OTHER MICROBIOLOGY: C. Difficile: No results found for: CDIFFTOX , NAP1 Imaging Studies XR Abdomen 1 view-Portable Result Date: 10/25/2025 EXAMINATION: XR ABDOMEN KUB CLINICAL INDICATION: incorrect count COMPARISON: None available. TECHNIQUE: AP view of the abdomen. FINDINGS: There is a surgical probe overlying the pelvis/vagina. Bilateral nephrostomy tube catheters are noted. 3 pelvic surgical drains are noted. Surgical probe overlying the pelvis/vagina, please remove and repeat films. Report communicated intraoperatively to Dr. Alicia at 8:[address] Abdomen+pelvis w/contrast Result Date: 10/25/2025 EXAMINATION: CT ABDOMEN AND PELVIS WITH CONTRAST CLINICAL INFORMATION: Concern for bowel perforation COMPARISON: 10/22/2025 TECHNIQUE: Contiguous axial images were obtained through the abdomen and pelvis after administration of contrast 60 mL of Omnipaque 350. Coronal and sagittal reformations wereperformed. Oral contrast was not administered. Iodinated contrast, diluted in 1-10 solution was injected directly into the drains. 10 mL of contrast was evidently injected into the left lower quadrant drain which elucidated pain. 20 mL of contrast solution was injected into the right transgluteal drain. Following the first and an additional 50 mL of dilute contrast solution was injected into the perirectal drain and a secondary CT of the pelvis only was performed. This CT examination was performed using dose optimization techniques as appropriate, variously including the following: *Automatedexposure control *Adjustment of mA and/or kV according to patient size (this includes techniques orstandardized protocols for targeted exams where dose is matched to indication/reason for exam; i.e. extremities or head) *Use of iterative reconstruction technique DLP: 630.46 mGy- cm, followed by 540.17 mGy-cm FINDINGS: LUNG BASES: The visualized lung bases are clear. LIVER: Homogeneous in attenuation. Normal in size. No focal lesion. GALLBLADDER: Status post cholecystectomy with surgical clips in the gallbladder fossa. BILIARY SYSTEM: No intrahepatic or extrahepatic biliary ductal dilation. PANCREAS: Homogeneous in attenuation. No pancreatic ductal dilatation. No focal lesion. SPLEEN: Upper limits of normal in size measuring 12 cm in the longest dimension. ADRENAL GLANDS: No focal nodule. KIDNEYS/BLADDER: Bilateral kidneys demonstrate symmetric enhancement. Bilateral nephrostomy tubes inplace with pigtails in the renal pelvis. Interval resolution of severe bilateral hydroureteronephrosis. GASTROINTESTINAL: Redemonstration of inflammatory changes along the distal sigmoid and rectum. In the proximal rectum there is fistulous communication with the adjacent abscess cavity best delineated on sagittal views (series 602 image 76 and 77). APPENDIX: The appendix is seen in its entirety a nd is unremarkable. PERITONEUM: No pneumoperitoneum. No ascites. No intra- abdominal fluid collection. LYMPH NODES: No pathologically enlarged abdominal or pelvic lymph nodes. PELVIC STRUCTURES: Redemonstration of right adnexal abscess, confirmed pyosalpinx with interval decrease size status post left lower quadrant approach small pigtail catheter placement.. The structure now measures 6.2 x 4.6 x4.5 cm , previously 10.9 x 4.9 x 6.6 cm. Medially adjacent to this is a pocket of air filled collection that is continuous with the perirectal abscess. The perirectal abscess is status post right transgluteal pigtail catheter placement and measures measures 9.6 x 4.1 x 5.7 cm (series 602 image 74).This abscess shows a fistulous communication with the adjacent rectum as described above. SOFT TISSUES: No significant hernia visualized. MUSCULOSKELETAL: Multilevel degenerative changes of the spine. 1. Redemonstration of right adnexal abscess, confirmed pyosalpinx with interval decrease size status post left lower quadrant approach small pigtail catheter placement. 2. Air and fluid-filled perirectal abscess is status post right transgluteal pigtail catheter placement and measures 9.6 x 4.1 x 5.7 cm This abscess shows a fistulous communication with the adjacent rectum. 3. Bilateral nephrostomy tubes in place with pigtails in the renal pelvis. Interval resolution of severe bilateral hydroureteronephrosis. Findings communicated with general surgery team at the time of the scan. Fleischner guidelines were followed. Current Medications: Current Medications[1] ALLERGIES: Allergies[2] > 35 min spent reviewing records, evaluating the patient, and formulating a plan of care Of note, some information is being carried forward from prior records for informational purposes only and is being cited so that efficiency, safety and quality of this patient's care is not compromised Sign Jenny Sanches MD ON LICENSE OF [facility] Infectious Diseases Available via [employer] [1] Current Facility-Administered Medications Medication Dose Route Frequency Provider Last Rate Last Admin albuterol (PROVENTIL HFA; VENTOLIN HFA) inhaler 2 puff 2 puff Inhalation Q4H PRN Kelly Pérez MD ampicillin-sulbactam (UNASYN) 3 g in sodium chloride-MBP (NS) 100 mL IVPB-MBP 3 g Intravenous Q6H Jenny Sanches MD Stopped at 11/02/25 1229 ARIPiprazole (ABILIFY) tablet 20 mg 20 mg Oral Daily Mare Cruz MD 20 mg at 11/02/25925 [Provider Held] ascorbic acid (VITAMIN C) tablet 250 mg 250 mg Oral Daily Roberto Freedman MD 250 mg at 10/25/25 101 aspirin enteric coated (ECOTRIN LOW STRENGTH) tablet 81 mg 81 mg Oral Nightly Gregory Celaya MD 81 mg at 11/01/252010 atorvastatin (LIPITOR) tablet 40 mg 40 mg Oral Nightly Mare Cruz MD 40 mg at 11/01/252010 baclofen (LIORESAL) tablet 10 mg 10 mg Oral TID Gregory Celaya MD 10 mg at 11/02/251447 buPROPion (WELLBUTRIN XL) 24 hr tablet 300 mg 300 mg Oral QAM Mare Cruz MD 300 mg at 11/02/25925 clonazePAM (KlonoPIN) tablet 1 mg 1 mg Oral Q12H PRN Mare Cruz MD 1 mg at 10/31/252024 glucose (GLUTOSE 15) 40 % oral gel 37.5 g 1 Tube Oral Q15 Min PRN Mare Cruz MD Or glucose (GLUTOSE 15) 40 % oral gel 75 g 2 Tube Oral Q15 Min PRN Mare Cruz MD Or dextrose 50 % solution 12.5 g 12.5 g Intravenous Q15 Min PRN Mare Cruz MD Or dextrose 50 % solution 25 g 25 g Intravenous Q15 Min PRSerina Cruz MD Or glucagon (GLUCAGEN) injection 1 mg 1 mg Intramuscular Daily PRN Mare Cruz MD diclofenac (VOLTAREN) 1 % gel 2 g 2 g Topical 4x Daily Roberto Freedman MD 2 g at 10/31/25902 docusate sodium (COLACE) capsule 100 mg 100 mg Oral BID Gregory Celaya MD 100 mg at enoxaparin (LOVENOX) syringe 40 mg 40 mg Subcutaneous Q24H [facility] Noe Masters DO 40 mg at ferrous sulfate EC tablet 325 mg 325 mg Oral Daily Gregory Celaya MD 325 mg at 11/02/25926 gabapentin (NEURONTIN) capsule 300 mg 300 mg Oral TID Gregory Celaya MD 300 mg at 11/02/25 1448 haloperidol (HALDOL) tablet 2.5 mg 2.5 mg Oral BID Eddie Alicia MD 2.5 mg at 11/02/25 1129 hydrOXYzine HCl (ATARAX) tablet 50 mg 50 mg Oral Q6H PRN Mare Cruz MD 50 mg at 10/31/25 1117 insulin lispro (HumaLOG/ADMELOG) 100 units/mL injection 1-6 Units 1-6 Units Subcutaneous TID with meals Gregory Celaya MD 4 Units at 11/02/25 1631 iohexol (OMNIPAQUE) 350 mg/mL injection 30 mL 30 mL Oral Once in imaging Juan Sanches MD levothyroxine (SYNTHROID, LEVOTHROID) tablet 250 mcg 250 mcg Oral Daily 6AM Brandi Clifford MD 250 mcg at 11/02/25 0516 [Provider Held] lisinopril (PRINIVIL,ZeSTRIL) tablet 2.5 mg 2.5 mg Oral Daily Roberto Freedman MD loratadine (CLARITIN) tablet 10 mg 10 mg Oral QAM Mare Cruz MD 10 mg at 11/02/25 0926 melatonin tablet 3 mg 3 mg Oral Nightly Kelly Pérez MD 3 mg at 11/01/252010 montelukast (SINGULAIR) tablet 10 mg 10 mg Oral Nightly Mare Cruz MD 10 mg at 11/01/252010 naloxone (NARCAN) 0.4 mg/mL injection 0.4 mg 0.4 mg Intravenous Q5 Min PRN Kelly Pérez MD ondansetron (ZOFRAN) injection 4 mg 4 mg Intravenous Q6H PRN Kelly Pérez MD oxyCODONE (ROXICODONE) immediate release tablet 10 mg 10 mg Oral Q3H PRN Mare Franz MD 10 mg at 11/02/25 1628 oxyCODONE (ROXICODONE) immediate release tablet 5 mg 5 mg Oral Q3H PRN Mare Franz MD 5 mg at 10/26/25 0947 PANTOprazole (PROTONIX) EC tablet 40 mg 40 mg Oral Daily Mare Cruz MD 40 mg at 11/02/25 0926 simethicone (MYLICON) chewable tablet 80 mg 80 mg Oral Q6H PRN Kelly Pérez MD sucralfate (CARAFATE) tablet 1 g 1 g Oral 4x daily Mare Cruz MD 1 g at 11/02/25 1628 [2] No Known Allergies * Mare Cruz MD - 11/02/2025 7:18 AM EST Gynecology Oncology Progress Note Assessment & Plan 55 y.o. admitted as a transfer from outside hospital due to worsening TOA POD#9 s/p IR guided placement of bilateral PCN and intra-abdominal drains now POD#7 s/p exploratory laparotomy, abdominal washout, loop colostomy and flex sigmoidoscopy for TOA, partial LBO, and rectal fistula. Recovering appropriately in postoperative setting - now with superficial wound dehiscence requiring packing changes. Awaiting final read on repeat CT, prelim read with increased left pelvic fluid collection. Overall afebrile and continuing to progress in postoperative period. Plan Neuro: Home psych meds restarted Medicine following MMPR with IV Tylenol and Dilaudid PRN. Holding NSAIDs due to MADELINE. CV/Pulm: COPD on 2L NC at baseline; currently saturating well on RA Lipitor ordered; home ASA held Heme: Hgb 7.5 >> 6.4 > 1u pRBCs > 7.5 > 1u pRBCs > 9.2 >> 9.0 > AM labs pending ID: Antibiotics transitioned from Zosyn to CTX/Flagyl per ID > Unasyn, will need at least 4 weeks IVfrom OR date, recommending repeat CT 2 weeks after surgery to assess size Ovarian abscess culture grew E.coli, S.constellatus and mixed anaerobes 10/23 Sacral abscess culture grew Enterococcus species (Amp-S, PCN-S), E.coli, S.constellatus and mixed anaerobes. GI: NPO > Clears > Low residue diet (10/28) > CLD (10/29) > Low residue (11/02) Diet per Surgery Surgery following, appreciate recommendations it infrastructure manager teaching, reassessed yesterday due to stool leakage from appliance over the weekend and per RN well fitted at this time : Petty out and patient voiding; bilateral PCNs in place Drains with 20-30cc of output in past 24 hours Strict I/Os Endocrine T2DM, FS/ISS Drains: New Juan drain placed in left adnexa abscess bed anterior to existing 10 Fr mini loop drain placedby IR on 10/23, exiting through right lower quadrant - output 20cc in last 24 hrs Existing 12 Fr drain placed in presacral abscess (right transgluteal) - output 20 Existing 10 Fr mini loop drain in left adnexa - 30cc output in last 24 hrs Existing bilateral 10 Fr percutaneous nephrosotomy tubes CT A/P w/ IV and PO contrast to evaluate drains and interval change in TOAs pending DVT ppx: Encourage ambulation, SCDs on and in place, lovenox Dispo: continue inpatient management Mare Cruz MD PGY4 [facility] Resident 11/02/2025 7:18 AM (p) [phone] Subjective Patient doing well this morning. Pain well-controlled with pain medication. Ambulating three times per day. Voiding spontaneously. Tolerating low fiber diet without nausea/vomiting. Denies chest pain, shortness of breath, nausea, vomiting. Objective Physical exam Last Vitals: Vitals: 11/02/25 0502 BP: 124/60 Pulse: 64 Resp: 18 Temp: 98.3 ??F (36.8 ??C) SpO2: 97% Weight: Height: Intake/Output Summary (Last 24 hours) at 11/02/2025 0718 Last data filed at 11/02/2025 0502 Gross per 24 hour Intake 1810 ml Output 4155 ml Net -2345 ml Gen: No apparent distress, alert and oriented Pulm: No increased work of breathing Abd: Soft, non tender, moderately distended, no rebound or guarding Incisions: Clean, dry; inferior half of incision opened and packed; fascia palpated to be intact; wet to dry kerlex replaced. 3x AALIYAH drains with serosanguinous drainage; PCNs with clear yellow urine; ostomy with gas and small amount of liquid stool Ext: calves equal and nontender, SCDs in place Labs: Recent Results (from the past 24 hours) POCT Glucose, Fingerstick Collection Time: 11/01/25 8:17 AM Specimen: Blood Result Value Ref Range POC Glucose 120 (H) 65 - 99 mg/dL POCT Glucose, Fingerstick Collection Time: 11/01/25 11:46 AM Specimen: Blood Result Value Ref Range POC Glucose 186 (H) 65 - 99 mg/dL POCT Glucose, Fingerstick Collection Time: 11/01/25 5:22 PM Specimen: Blood Result Value Ref Range POC Glucose 176 (H) 65 - 99 mg/dL POCT Glucose, Fingerstick Collection Time: 11/01/25 8:56 PM Specimen: Blood Result Value Ref Range POC Glucose 211 (H) 65 - 99 mg/dL Cosigned by Tisha Shah MD at 11/02/2025 7:49 AM EST Associated attestation - Tisha Shah MD - 11/02/2025 7:49 AM EST Teaching Physician Attestation Level of Participation I have personally interviewed and examined the patient and reviewed Dr. Weiss's note. I agree with the history, exam, assessment and plan as detailed in the resident/fellow's note with the following additions/exceptions/observations:Clinically continuyes to improve, tolerating diet. Will d/c IVF other than meds. Cbc continuing to trend down. Will need to work with case management for either STR or home IV abx. Will f/u on final CT read as well. * Yvon Velez MD - 11/02/2025 5:41 AM EST Daily General Surgery Progress Note Assessment & Plan Sis Valdez is a 55 y.o. female who undrwent exploratory laparotomy, ovarian cyst aspiration and washout, flexible sigmoidoscopy and loop colostomy creation for tubo-ovarian abscess complicated by rectal fistula (10/25). Post operative course has been complicated by leukocytosis to 33 and purulent drainage from the inferior midline incision noted on 10/29. Apart from her superficial wound dehiscence, she is recovering appropriately and is now tolerating a low fiber diet without n/v. Pleasereach back out to surgery if there are any new acute surgical concerns. Plan - Diet: Care per primary team - Follow up in 1-[address] Amos - Record ostomy output until visit - If ostomy output over 1.5L any one day call the office - Please contact [facility] with any questions Subjective No acute events overnight. Pain currently well controlled. Denies nausea and vomiting. Tolerating diet. Voiding spontaneously. passing flatus, and stool. Objective Last Vitals Pulse:64,Resp:18,BP:124/60,SpO2:97 %,Weight:96.6 kg (212 lb 15.4 oz) Temp Last 24 hrs: Temp Min: 97.9 ??F (36.6 ??C) Max: 98.4 ??F (36.9 ??C) Last temp: 98.3 ??F (36.8 ??C) (Tympanic) Intake/Output Summary (Last 24 hours) at 11/02/2025 0542 Last data filed at 11/02/2025 0502 Gross per 24 hour Intake 2110 ml Output 4155 ml Net -2045 ml Physical Exam Gen: alert, no acute distress Card: regular rate Pulm: normal effort of breathing with no signs of acute respiratory distress Abd: soft, nondistended, no TTP Skin: warm and dry VTE Time Out Caprini SCORE: 7 (10/25/2025 9:06 PM) Interpretation - High Risk Chemical Prophylaxis enoxaparin (LOVENOX) syringe 40 mg Subcutaneous Every 24 hours scheduled Enoxaparin Sodium 40 mg Last dose 11/01/2025 8:16 AM Mechanical Prophylaxis SCDs are ordered - Bilateral (Knee High) Labs: White Blood Cell Count Date Value Ref Range Status 11/01/2025 25.7 (H) 4.0 - 11.0 Thou/uL Final Hemoglobin, I-STAT Date Value Ref Range Status 10/25/2025 9.9 (L) 11.7 - 15.7 gm/dL Final Hemoglobin Date Value Ref Range Status 11/01/2025 9.0 (L) 11.7 - 15.7 g/dL Final Hematocrit, I-STAT Date Value Ref Range Status 10/25/2025 29.0 (L) 35.0 - 47.0 % Final Hematocrit Date Value Ref Range Status 11/01/2025 29.3 (L) 35.0 - 47.0 % Final Platelet Count Date Value Ref Range Status 11/01/2025 551 (H) 150 - 450 Thou/uL Final Lab Results Component Value Date NA 142 11/01/2025 NA 145 10/25/2025 K 4.1 11/01/2025 K 4.0 10/25/2025 CL 108 (H) 11/01/2025 CO2 24 11/01/2025 CO2 25 10/25/2025 BUN 6 (L) 11/01/2025 CREAT 1.03 11/01/2025 GLUC 211 (H) 11/01/2025 GLUC 134 (H) 11/01/2025 GLUC 146 (H) 10/25/2025 Lab Results Component Value Date CALCIUM 7.9 (L) 11/01/2025 MG 1.5 (L) 11/01/2025 PHOS 3.2 11/01/2025 Lab Results Component Value Date AST 56 (H) 10/22/2025 ALT 28 10/22/2025 ALKPHOS 125 (H) 10/22/2025 BILITOT 0.3 10/22/2025 ALBUMIN 3.5 10/22/2025 PROT 7.2 10/22/2025 Lab Results Component Value Date LIPASE 32 10/22/2025 Lab Results Component Value Date PTT 26 10/22/2025 LABPROT 15.0 (H) 10/22/2025 INR 1.3 10/22/[address] Abdomen and Pelvis with IV Contrast w/PO Result Date: 11/01/2025 EXAMINATION: CT ABDOMEN AND PELVIS WITH CONTRAST CLINICAL INFORMATION: multiple drains. rule out fistula and confirm infection pockets if improved. COMPARISON: CT abdomen/pelvis 10/25/2025, 10/22/2025, 10/08/2025. TECHNIQUE: Multidetector volumetric imaging was performed from the lung bases to the pubic symphysis following the administration of: Oral contrast: Yes Intravenous contrast: 80 mL Omnipaque 350 No contrast reaction reported. Sagittal and coronal reformatted images were obtained on the technologist's workstation. This CT examination was performed using dose optimization techniques as appropriate, variously including the following: *Automated exposure control *Adjustment of mA and/or kV according to patient size (this includes techniques or standardized protocols for targeted exams where dose is matched to indication/reason for exam; i.e. extremities or head) *Use of iterative reconstruction technique Total exam dose- length product 814.06 mGy-cm. FINDINGS: VISUALIZED CHEST: Small left pleural effusion with associated compressive atelectasis. Interlobular septal thickening at the bilateral lung bases. The heart is enlarged. LIVER, GALLBLADDER, AND BILIARY TREE: The liver is normal in size, shape, and attenuation. Ill-defined focal hypoattenuation seen at the inferior margin of the left hepatic lobe, segment IVb adjacent to the gallbladder fossa likely focal fatty infiltration, stable compared to exam from 04/12/2018. No biliary ductal dilatation is present. Status postcholecystectomy. PANCREAS: Normal; no mass or surrounding fluid. SPLEEN: Normal size. No focal lesion. ADRENAL GLANDS: Unremarkable. KIDNEYS AND URETERS: The kidneys are normal in size, shape, and attenuation. Bilateral posterior approach percutaneous nephrostomy tube tips terminate within the bilat eral renal pelves. Mild fullness of the right renal pelvis. No left-sided hydronephrosis. GASTROINTESTINAL TRACT: Left lower quadrant ostomy. Mild thickening of the distal small bowel just proximal to entering into the ostomy site, likely reactive to surrounding inflammatory changes. The colon is un derdistended. No evidence of fistulous connection to surrounding intra-abdominal collections. Normal appendix. PERITONEUM/RETROPERITONEUM: Loculated collection which occupies the medial and left lower abdomen/pelvis and measures approximately 7.8 x 10.8 x 10.9 cm (AP by TRV by cc), previously 6.3 x6.8 x 4.9 cm when measured by similar technique, although the configuration of the collection makesit difficult to measure. No oral contrast opacifies this collection to suggest a fistula. Left lateral and right anterolateral approach surgical drains tip terminates within the collection in the left hemipelvis at the level of the iliacus. No pneumoperitoneum. ABDOMINAL WALL: Postsurgical changes of anterior abdominal wall. Left lower quadrant ostomy. Posterolateral subcutaneous edema. LYMPHOVASCULAR STRUCTURES: Prominent retroperitoneal lymph nodes, however not enlarged. The aorta is normal in caliber. BLADDER: Tiny locule of gas within the antidependent aspect of the bladder lumen. No oral contrast opacifies the bladder to suggest a fistulous connection. No focal mass or wall thickening.No bladder calculi. PELVIC VISCERA: Right transgluteal approach surgical drain terminates within the presacral space in the region of the mesorectal fascia and likely within the perirectal collection, which is difficult to measure although appears intervally smaller compared to prior exam measuring6.5 x 2.9 x 3.9 cm, previously 9.6 x 4.1 x 5.7 cm. OSSEOUS STRUCTURES: No acute or suspicious osseous abnormality. Multilevel degenerative changes of the spine. * Loculated collection which occupies the medial and left lower abdomen/pelvis and has increased insize compared to prior exam, measuring approximately 7.8 x 10.8 x 10.9 cm (AP by TRV by cc), previously 6.3 x 6.8 x 4.9 cm when measured by similar technique, although the configuration of the collection makes it difficult to measure. No oral contrast within this collection to suggest fistula fistulous connection. Left lateral and right anterolateral approach surgical drains terminate within thiscollection at the level of the iliacus. * Right transgluteal approach surgical drain terminates within the presacral space in the region of the mesorectal fascia and likely within the perirectal collection, which is difficult to measure although appears intervally smaller compared to prior exam measuring 6.5 x 2.9 x 3.9 cm, previously 9.6 x 4.1 x 5.7 cm. No oral contrast within this collection tosuggest fistulous connection. * Tiny locule of gas within the antidependent aspect of the bladder lumen; this can be seen with recent Petty catheterization. No contrast opacifies the bladder to suggest a fistula. Clinical correlation recommended. * Bilateral posterior approach percutaneous nephrostomy tube tips terminate within the bilateral renal pelves. Mild fullness of the right renal pelvis. No left-sided hydronephrosis. * Cardiomegaly, interlobular septal thickening, and a small left pleural effusion; findings are suggestive of CHF. Fleischner guidelines were followed. Interpreted by: Lito Bhat MD Weed Control Inspector Electronically Signed Yvon Velez MD General Surgery, PGY-1 11/02/2025 5:42 AM Cosigned by Bharathi Amos MD at 11/02/2025 8:05 AM EST Associated attestation - Bharathi Amos MD - 11/02/2025 8:05 AM EST .Teaching Physician Attestation Level of Participation I have personally interviewed and examined the patient and reviewed Dr. Faye's note. I agree with the history, exam, assessment and plan as detailed in the resident/fellow's note with the following additions/exceptions/observations: 55-year-old female who unfortunately has a rectal fistula partial large bowel obstruction adnexal abscess anemia and general deconditioning over the past month or so who underwent a open drainage of a large left adnexal abscess in addition to evaluation notable rectal fissure in the mid rectum and a frozen pelvis with ureteral obstruction and needing PERC neph tubes preoperatively anemia and sepsis who underwent diverting loop loop colostomy creation, she is eating her colostomy is functional at this point, she is getting more teaching and all related to this. I do think from my standpoint that she should be discharged with her surgical drain in addition to her transgluteal drain at this point given the known rectal fistula things are definitely serous in nature and significantly improving at this time. Her IR drain on the left side can be removed. Her wound is being packed at this time in the inferior pole. Please call back with any questions or concerns. * Wilfredo Tian PTA - 11/01/2025 1:20 PM EST Physical Therapy Progress Note Precautions/Restrictions: fall, other (see comments) (skin) Assessment Summary: Today's session focused on ambulation and stair trial. She is able to perform all mobilitywith SBA/CGA marking improvement. Pt performed partially successful stair trial, limited only by being attaches to IV; further detailed belowShe reports minimal increase in pain with mobility. Pt is making good progress towards their goals. Pt will continue to benefit from PT while in house. Progress Towards Goals: progress toward functional goals is good Outcome Measures: The Activity Measure for Post-Acute Care (AM-PAC) Basic Mobility Inpatient Short Form (6-clicks) sophia standardized measure used to quantify functional deficits in mobility. The total score of the measure ranges from 6-24. A higher score indicates a higher level of independence with functional mobility. Current [facility] Basic Mobility Score: 18 Rehab Plan of Care Next session to focus on progression of ambulation and stair training. If transitioning to home, patient will require assist with stairs as needed. PT Recommendations for Staff: Ax1 with GB for transfers and ambulation PT Frequency during Hospitalization: 2-3 times/wk Plan of Care Reviewed With: Patient Objective Data/Intervention Bed Mobility Assessment/Intervention: Sit>supine performed with SBA. Transfers Assessment/Intervention: Sit<>stands x3 performed with SBA. Pt was able to stand with fair+ force production and sit with fair+ eccentric control. Gait/Stair Assessment/Intervention: Pt ambulates 900' with SBA/CGA using IV pole. They have decreased summer and shortened step length with good negotiation of IV pole. Pt able to ascend/descend 5 steps with SBA using single handrail and [id number] pattern. Activity Tolerance/Endurance Assessment/Intervention: Pt tolerates session well with minimal reports of pain. Vitals: None taken. Education: Role of PT, mobility techniques, safety, and IP PT goals Subjective I hope I get out of here soon. Flowsheet Data 11/01/25 1320 Physical Therapy Time and Intention PT Follow-Up Visit follow up treatment Mode of Treatment individual therapy;physical therapy Patient Effort excellent Symptoms Noted During/After Treatment increased pain General Information Patient Profile Reviewed yes Patient/Family/Caregiver Comments/Observations I hope I get out of here soon. General Observations of Patient Pt received sitting up in recliner on RA. She's agreeable to PT> Existing Precautions/Restrictions fall;other (see comments) (skin) Pain Pre/Posttreatment Pain Comment (Numbers Scale) Some abdominal discomfort Coping Observed Emotional State calm;cooperative Verbalized Emotional State acceptance Trust Relationship/Rapport care explained;choices provided;emotional support provided;empathic listening provided;questions answered;questions encouraged;reassurance provided;thoughts/feelings acknowledged Family/Support Persons patient Involvement in Care participating in care Family/Support System Care self-care encouraged;support provided Diversional Activities television Safety Safety WDL WDL Safety Factors wheels locked;ID band on;call light in reach;bed in low position;upper side rails raised x 2, lower side rail raised x 1 All Alarms alarm(s) activated and audible Enhanced Safety Measures bed alarm set Progressive Mobility Progressive Mobility Level Achieved Ambulation Ambulation Distance (Feet) 900 [facility] Basic Mobility Turning from your back to your side while in a flat bed without using bedrails? 3 Moving from lying on your back to sitting on the side of a flat bed without using bedrails? 3 Moving to and from a bed to a chair (including wheelchair)? 3 Standing up from a chair using your arms? 3 To walk in a hospital room? 3 Climbing 3-5 steps with a railing? 3 [facility] Basic Mobility Score 18 Therapy Assessment/Plan (PT) Patient/Family Therapy Goals Statement (PT) To go home Criteria for Skilled Interventions Met (PT) skilled treatment is necessary Therapy Frequency (PT) 2-3 times/wk PT Recommendations for Staff Ax1 with GB for transfers and ambulation Predicted Duration of Therapy Intervention (PT) LOS Progress Summary (PT) Progress Toward Functional Goals (PT) progress toward functional goals is good Therapy Plan Review/Discharge Plan (PT) Therapy Plan Review (PT) evaluation/treatment results reviewed Bed Mobility Goal 1 (PT) Progress/Outcomes (Bed Mobility Goal 1, PT) good progress toward goal Transfer Goal 1 (PT) Progress/Outcome (Transfer Goal 1, PT) good progress toward goal Gait Training Goal 1 (PT) Progress/Outcome (Gait Training Goal 1, PT) goal partially met Stairs Goal 1 (PT) Progress/Outcome (Stairs Goal 1, PT) good progress toward goal Sign: Wilfredo Tian PTA * Jenny Sanches MD - 11/01/2025 1:11 PM EST Images from the original note were not included. ON LICENSE OF [facility] ID Progress Note Name: Sis Valdez Age: 55 y.o. Sex: female ASSESSMENT & PLAN Sis Valdez is a 55 year-old female with history of DM, DANIEL, thyroid cancer s/p resection, lung cancer s/p resection, recurrent uterine bleeding who was transferred from [facility] for escalation of care in the setting of tubo- ovarian abscess, acute renal failure and shock She was recently admitted to [facility] 10/01-10/08 due to TOA and MADELINE. She underwent IR drainage but no drain was left in. Culture from IR drainage was negative. She was givem meropenem in thebeginning and was discharged on Amox- clav and Flagyl. She was off treatment for 10 days. Assessment: 1) Tubo-ovarian abscess 2) Rectal fistula 3) Bilateral severe hydroureteronephrosis s/p PCN placement, improved 4) MADELINE - s/p exploratory laparotomy, abdominal washout, drainage of pelvic abscess on 10/25. A pinpoint rectal fistula was found on flexible sigmoidoscopy. 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 There is no Actinomyces growth noted from the culture from 10/23 after 5 days. No OR cultures were sent on 10/25. Plan: Continue IV Unasyn 3g q6hr. Would plan to follow up CT in 2 weeks from surgery (around 11/08). If WBC is persistently elevated >20K, would repeat CT prior to discharge. She will be on antibiotics until abscess resolution, anticipating 4 weeks from the OR date Monitor WBC. ANTIBIOTIC TIME OUT Current antibiotic/day of therapy: Anti-infectives (From admission, onward) Start Dose/Rate Route Frequency Ordered Stop 10/26/25 1800 ampicillin-sulbactam (UNASYN) 3 g in sodium chloride-MBP (NS) 100 mL IVPB-MBP 3 g 100 mL/hr over 60 Minutes Intravenous Every 6 hours 10/26/25 1420 SUBJECTIVE NAEO. She denies abdominal pain. She wishes to talk to Dr. Alicia at some point and understands that heis busy. OBJECTIVE Physical Examination: Vitals: 11/01/25 1622 BP: 116/62 Pulse: 70 Resp: 18 Temp: 98.4 ??F (36.9 ??C) SpO2: 98% Weight: Height: No changes General appearance - awake, NAD HEENT - EOMI Abdomen -soft, distended, inferior part of surgical site is packed with cauze. multiple abscess drains (RLQ, LLQ, transgluteal), 2 PCNs, colostomy bag in place SKIN- No rash or ulcer Neuro- AOx3 LABORATORY AND DIAGNOSTIC DATA: Lab and imaging data were reviewed by me -[place] cultures 10[place]22 [place] [place] NGTD -Urine cultures 10/22 ([facility] [place] >100,000 GNR -C. Diff negative HH -Blood cultures 10/22: NG -MRSA Nares negative OR culture+Enterococcus species (Amp-S, PCN-S), E.coli, S.constellatus and mixed anaerobes. Urine culture K.pneumoniae Results from last 7 days Lab Units 11/01/25 0402 10/31/25 0729 10/30/25 0728 WHITE BLOOD CELL COUNT Thou/uL 25.7* 27.0* 35.4* HEMOGLOBIN g/dL 9.0* 9.1* 9.2* HEMATOCRIT % 29.3* 28.4* 28.2* PLATELET COUNT Thou/uL 551* 504* 461* Results from last 7 days Lab Units 11/01/25 1722 11/01/25 1146 11/01/25 0817 11/01/25 0414 11/01/25 0402 10/31/25 0752 10/31/25 0729 10/30/25 0809 10/30/25 0728 SODIUM mmol/L -- -- -- -- 142 -- 142 -- 139 POTASSIUM mmol/L -- -- -- -- 4.1 -- 3.5 -- 3.8 CHLORIDE mmol/L -- -- -- -- 108* -- 106 -- 105 CO2 mmol/L -- -- -- -- 24 -- 24 -- 25 BUN mg/dL -- -- -- -- 6* -- 4* -- 3* CREATININE mg/dL -- -- -- -- 1.03 -- 0.98 -- 0.88 CALCIUM mg/dL -- -- -- -- 7.9* -- 8.0* -- 7.7* GLUCOSE mg/dL -- -- -- -- 134* -- 126* -- 138* GLUCOSE, POC mg/dL 176* 186* 120* < > -- < > -- < > -- EGFR -- -- -- -- 65 -- 69 -- 79 < > = values in this interval not displayed. Lab Results Component Value Date ALT 28 10/22/2025 AST 56 (H) 10/22/2025 ALKPHOS 125 (H) 10/22/2025 BILITOT 0.3 10/22/2025 proBNP, N-terminal Date Value Ref Range Status 10/23/2025 1,039 (H) <125 pg/mL Final No results found for: SEDRATE No results found for: CRP Blood Cultures: Lab Results Component Value Date CULTURE 10/23/2025 No aerobes isolated after 3 days and no anaerobes isolated after 5 days. Urine Cultures: Lab Results Component Value Date HYALNCSTUA Present 10/22/2025 BILIUA Negative 10/22/2025 BLOODUA Small (A) 10/22/2025 CLARITYUA Cloudy 10/22/2025 COLORUA Yellow 10/22/2025 KETONESUA Negative 10/22/2025 LEUKOCYTESUA Moderate (A) 10/22/2025 NITRITEUA Negative 10/22/2025 PHUA 5.0 10/22/2025 PROTEINUA Trace (A) 10/22/2025 RBCUA 1 10/22/2025 SPECGRAVUA 1.010 10/22/2025 WBCUA >25 (H) 10/22/2025 OTHER MICROBIOLOGY: C. Difficile: No results found for: CDIFFTOX , NAP1 Imaging Studies XR Abdomen 1 view-Portable Result Date: 10/25/2025 EXAMINATION: XR ABDOMEN KUB CLINICAL INDICATION: incorrect count COMPARISON: None available. TECHNIQUE: AP view of the abdomen. FINDINGS: There is a surgical probe overlying the pelvis/vagina. Bilateral nephrostomy tube catheters are noted. 3 pelvic surgical drains are noted. Surgical probe overlying the pelvis/vagina, please remove and repeat films. Report communicated intraoperatively to Dr. Alicia at 8:[address] Abdomen+pelvis w/contrast Result Date: 10/25/2025 EXAMINATION: CT ABDOMEN AND PELVIS WITH CONTRAST CLINICAL INFORMATION: Concern for bowel perforation COMPARISON: 10/22/2025 TECHNIQUE: Contiguous axial images were obtained through the abdomen and pelvis after administration of contrast 60 mL of Omnipaque 350. Coronal and sagittal reformations wereperformed. Oral contrast was not administered. Iodinated contrast, diluted in 1-10 solution was injected directly into the drains. 10 mL of contrast was evidently injected into the left lower quadrant drain which elucidated pain. 20 mL of contrast solution was injected into the right transgluteal drain. Following the first and an additional 50 mL of dilute contrast solution was injected into the perirectal drain and a secondary CT of the pelvis only was performed. This CT examination was performed using dose optimization techniques as appropriate, variously including the following: *Automatedexposure control *Adjustment of mA and/or kV according to patient size (this includes techniques orstandardized protocols for targeted exams where dose is matched to indication/reason for exam; i.e. extremities or head) *Use of iterative reconstruction technique DLP: 630.46 mGy- cm, followed by 540.17 mGy-cm FINDINGS: LUNG BASES: The visualized lung bases are clear. LIVER: Homogeneous in attenuation. Normal in size. No focal lesion. GALLBLADDER: Status post cholecystectomy with surgical clips in the gallbladder fossa. BILIARY SYSTEM: No intrahepatic or extrahepatic biliary ductal dilation. PANCREAS: Homogeneous in attenuation. No pancreatic ductal dilatation. No focal lesion. SPLEEN: Upper limits of normal in size measuring 12 cm in the longest dimension. ADRENAL GLANDS: No focal nodule. KIDNEYS/BLADDER: Bilateral kidneys demonstrate symmetric enhancement. Bilateral nephrostomy tubes inplace with pigtails in the renal pelvis. Interval resolution of severe bilateral hydroureteronephrosis. GASTROINTESTINAL: Redemonstration of inflammatory changes along the distal sigmoid and rectum. In the proximal rectum there is fistulous communication with the adjacent abscess cavity best delineated on sagittal views (series 602 image 76 and 77). APPENDIX: The appendix is seen in its entirety a nd is unremarkable. PERITONEUM: No pneumoperitoneum. No ascites. No intra- abdominal fluid collection. LYMPH NODES: No pathologically enlarged abdominal or pelvic lymph nodes. PELVIC STRUCTURES: Redemonstration of right adnexal abscess, confirmed pyosalpinx with interval decrease size status post left lower quadrant approach small pigtail catheter placement.. The structure now measures 6.2 x 4.6 x4.5 cm , previously 10.9 x 4.9 x 6.6 cm. Medially adjacent to this is a pocket of air filled collection that is continuous with the perirectal abscess. The perirectal abscess is status post right transgluteal pigtail catheter placement and measures measures 9.6 x 4.1 x 5.7 cm (series 602 image 74).This abscess shows a fistulous communication with the adjacent rectum as described above. SOFT TISSUES: No significant hernia visualized. MUSCULOSKELETAL: Multilevel degenerative changes of the spine. 1. Redemonstration of right adnexal abscess, confirmed pyosalpinx with interval decrease size status post left lower quadrant approach small pigtail catheter placement. 2. Air and fluid-filled perirectal abscess is status post right transgluteal pigtail catheter placement and measures 9.6 x 4.1 x 5.7 cm This abscess shows a fistulous communication with the adjacent rectum. 3. Bilateral nephrostomy tubes in place with pigtails in the renal pelvis. Interval resolution of severe bilateral hydroureteronephrosis. Findings communicated with general surgery team at the time of the scan. Fleischner guidelines were followed. Current Medications: Current Medications[1] ALLERGIES: Allergies[2] > 35 min spent reviewing records, evaluating the patient, and formulating a plan of care Of note, some information is being carried forward from prior records for informational purposes only and is being cited so that efficiency, safety and quality of this patient's care is not compromised Sign Jenny Sanches MD ON LICENSE OF [facility] Infectious Diseases Available via [employer] [1] Current Facility-Administered Medications Medication Dose Route Frequency Provider Last Rate Last Admin albuterol (PROVENTIL HFA; VENTOLIN HFA) inhaler 2 puff 2 puff Inhalation Q4H PRN Kelly Pérez MD ampicillin-sulbactam (UNASYN) 3 g in sodium chloride-MBP (NS) 100 mL IVPB-MBP 3 g Intravenous Q6H Jenny Sanches MD 100 mL/hr at 11/01/25 1737 3 g at 11/01/25 1737 ARIPiprazole (ABILIFY) tablet 20 mg 20 mg Oral Daily Mare Cruz MD 20 mg at 11/01/25 0816 [Provider Held] ascorbic acid (VITAMIN C) tablet 250 mg 250 mg Oral Daily Roberto Freedman MD 250 mg at 10/25/25 1018 aspirin enteric coated (ECOTRIN LOW STRENGTH) tablet 81 mg 81 mg Oral Nightly Gregory Celaya MD 81 mg at 10/31/252016 atorvastatin (LIPITOR) tablet 40 mg 40 mg Oral Nightly Mare Cruz MD 40 mg at 10/31/252016 baclofen (LIORESAL) tablet 10 mg 10 mg Oral TID Gregory Celaya MD 10 mg at 11/01/25 1510 buPROPion (WELLBUTRIN XL) 24 hr tablet 300 mg 300 mg Oral QAM Mare Cruz MD 300 mg at 11/01/25 08 clonazePAM (KlonoPIN) tablet 1 mg 1 mg Oral Q12H PRN Mare Cruz MD 1 mg at 10/31/252024 glucose (GLUTOSE 15) 40 % oral gel 37.5 g 1 Tube Oral Q15 Min PRN Mare Cruz MD Or glucose (GLUTOSE 15) 40 % oral gel 75 g 2 Tube Oral Q15 Min PRSerina Cruz MD Or dextrose 50 % solution 12.5 g 12.5 g Intravenous Q15 Min PRN Mare Cruz MD Or dextrose 50 % solution 25 g 25 g Intravenous Q15 Min PRSerina Cruz MD Or glucagon (GLUCAGEN) injection 1 mg 1 mg Intramuscular Daily PRN Mare Cruz MD diclofenac (VOLTAREN) 1 % gel 2 g 2 g Topical 4x Daily Roberto Freedman MD 2 g at 10/31/25 09 docusate sodium (COLACE) capsule 100 mg 100 mg Oral BID Gregory Celaya MD 100 mg at enoxaparin (LOVENOX) syringe 40 mg 40 mg Subcutaneous Q24H [facility] Noe Masters DO 40 mg at ferrous sulfate EC tablet 325 mg 325 mg Oral Daily Gregory Celaya MD 325 mg at 11/01/25 0816 gabapentin (NEURONTIN) capsule 300 mg 300 mg Oral TID Gregory Celaya MD 300 mg at 11/01/25 151 haloperidol (HALDOL) tablet 2.5 mg 2.5 mg Oral BID Eddie Alicia MD hydrOXYzine HCl (ATARAX) tablet 50 mg 50 mg Oral Q6H PRN Mare Cruz MD 50 mg at 10/31/25 1117 insulin lispro (HumaLOG/ADMELOG) 100 units/mL injection 1-6 Units 1-6 Units Subcutaneous TID with meals Gregory Celaya MD 3 Units at 11/01/25 1736 iohexol (OMNIPAQUE) 350 mg/mL injection 30 mL 30 mL Oral Once in imaging Juan Sanches MD levothyroxine (SYNTHROID, LEVOTHROID) tablet 250 mcg 250 mcg Oral Daily 6AM Brandi Clifford MD 250 mcg at 11/01/25 0650 [Provider Held] lisinopril (PRINIVIL,ZeSTRIL) tablet 2.5 mg 2.5 mg Oral Daily Roberto Freedman MD loratadine (CLARITIN) tablet 10 mg 10 mg Oral QAM Mare Cruz MD 10 mg at 11/01/25 0817 melatonin tablet 3 mg 3 mg Oral Nightly Kelly Pérez MD 3 mg at 10/31/252016 montelukast (SINGULAIR) tablet 10 mg 10 mg Oral Nightly Mare Cruz MD 10 mg at 10/31/252016 naloxone (NARCAN) 0.4 mg/mL injection 0.4 mg 0.4 mg Intravenous Q5 Min PRN Kelly Pérez MD ondansetron (ZOFRAN) injection 4 mg 4 mg Intravenous Q6H PRN Kelly Pérez MD oxyCODONE (ROXICODONE) immediate release tablet 10 mg 10 mg Oral Q3H PRN Mare Franz MD 10 mg at 11/01/25 0308 oxyCODONE (ROXICODONE) immediate release tablet 5 mg 5 mg Oral Q3H PRN Mare Franz MD 5 mg at 10/26/25 0947 PANTOprazole (PROTONIX) EC tablet 40 mg 40 mg Oral Daily Mare Cruz MD 40 mg at 11/01/25 0816 simethicone (MYLICON) chewable tablet 80 mg 80 mg Oral Q6H PRN Kelly Pérez MD sucralfate (CARAFATE) tablet 1 g 1 g Oral 4x daily Mare Cruz MD 1 g at 11/01/25 1737 [2] No Known Allergies * Mare Cruz MD - 11/01/2025 7:13 AM EST Gynecology Oncology Progress Note Assessment & Plan 55 y.o. admitted as a transfer from outside hospital due to worsening TOA POD#9 s/p IR guided placement of bilateral PCN and intra-abdominal drains now POD#7 s/p exploratory laparotomy, abdominal washout, loop colostomy and flex sigmoidoscopy for TOA, partial LBO, and rectal fistula. Recovering appropriately in postoperative setting - now with superficial wound dehiscence requiring packing changes. Overall afebrile and feeling hungry. Plan Neuro: Home psych meds restarted Medicine following MMPR with IV Tylenol and Dilaudid PRN. Holding NSAIDs due to MADELINE. CV/Pulm: COPD on 2L NC at baseline; currently saturating well on RA Lipitor ordered; home ASA held Heme: Hgb 7.5 >> 6.4 > 1u pRBCs > 7.5 > 1u pRBCs > 9.2 >> 9.0 ID: Antibiotics transitioned from Zosyn to CTX/Flagyl per ID > Unasyn Ovarian abscess culture grew E.coli, S.constellatus and mixed anaerobes 10/23 Sacral abscess culture grew Enterococcus species (Amp-S, PCN-S), E.coli, S.constellatus and mixed anaerobes. GI: NPO > Clears > Low residue diet (10/28) > CLD (10/29) Diet per Surgery Surgery following, appreciate recommendations it infrastructure manager teaching : Petty out and patient voiding; bilateral PCNs in place Drain Strict I/Os Endocrine T2DM, FS/ISS Drains: New Juan drain placed in left adnexa abscess bed anterior to existing 10 Fr mini loop drain placedby IR on 10/23, exiting through right lower quadrant - output 250cc in last 24 hrs Existing 12 Fr drain placed in presacral abscess (right transgluteal) - output 40cc in past 24 hrs,predominantly gas/air Existing 10 Fr mini loop drain in left adnexa - 0cc output in last 24 hrs Existing bilateral 10 Fr percutaneous nephrosotomy tubes CT A/P w/ IV and PO contrast to evaluate drains and interval change in TOAs pending DVT ppx: Encourage ambulation, SCDs on and in place, lovenox Dispo: continue inpatient management Mrae Cruz MD PGY4 [facility] Resident 11/01/2025 7:13 AM (p) [phone] Subjective Patient doing well this morning. Pain well controlled with pain medication. Ambulating three times per day. Voiding spontaneously and via PCNs. Tolerating clears without nausea/vomiting. Denies chestpain, shortness of breath. Objective Physical exam Last Vitals: Vitals: 11/01/25 0249 BP: (!) 140/70 Pulse: 68 Resp: 18 Temp: 96.9 ??F (36.1 ??C) SpO2: 99% Weight: Height: Intake/Output Summary (Last 24 hours) at 11/01/2025 0713 Last data filed at 11/01/2025 0651 Gross per 24 hour Intake 2031 ml Output 5890 ml Net -3859 ml Gen: No apparent distress, alert and oriented Pulm: No increased work of breathing Abd: Soft, non tender, non-distended, no rebound or guarding; bilateral PCNs Incisions: Clean, dry, intact with dressing. No surrounding induration, drainage Ext: calves equal and nontender, SCDs in place Labs: Recent Results (from the past 24 hours) Phosphorus Collection Time: 10/31/25 7:29 AM Specimen: Blood Result Value Ref Range Phosphorus 2.7 2.7 - 4.5 mg/dL Magnesium Collection Time: 10/31/25 7:29 AM Specimen: Blood Result Value Ref Range Magnesium 1.6 1.6 - 2.7 mg/dL COMPLETE BLOOD COUNT, WITHOUT DIFFERENTIAL Collection Time: 10/31/25 7:29 AM Specimen: Blood Result Value Ref Range White Blood Cell Count 27.0 (H) 4.0 - 11.0 Thou/uL Platelet Count 504 (H) 150 - 450 Thou/uL Hemoglobin 9.1 (L) 11.7 - 15.7 g/dL Hematocrit 28.4 (L) 35.0 - 47.0 % Red Blood Cell Count 3.42 (L) 4.00 - 5.40 Mil/uL MCV 83 80 - 100 fL MCH 26.6 (L) 27.0 - 31.0 pg MCHC 32.0 30.0 - 36.0 g/dL RDW 18.0 (H) 11.5 - 14.5 % MPV 9.6 7.5 - 12.5 fL nRBC 0.1 0.0 - 0.1 /100 WBC nRBC, Absolute 0.02 0.00 - 0.02 Thou/uL Basic Metabolic Panel Collection Time: 10/31/25 7:29 AM Specimen: Blood Result Value Ref Range Glucose 126 (H) 65 - 99 mg/dL Blood Urea Nitrogen (BUN) 4 (L) 8 - 21 mg/dL Creatinine 0.98 0.40 - 1.10 mg/dL eGFR 69 >59 Sodium 142 136 - 145 mmol/L Potassium 3.5 3.4 - 5.3 mmol/L Chloride 106 98 - 107 mmol/L CO2 24 22 - 33 mmol/L Anion Gap 12 7 - 17 Calcium 8.0 (L) 8.7 - 10.5 mg/dL BUN/Creatinine Ratio 4 (L) 10.0 - 25.0 Ratio POCT Glucose, Fingerstick Collection Time: 10/31/25 7:52 AM Specimen: Blood Result Value Ref Range POC Glucose 131 (H) 65 - 99 mg/dL POCT Glucose, Fingerstick Collection Time: 10/31/25 11:58 AM Specimen: Blood Result Value Ref Range POC Glucose 222 (H) 65 - 99 mg/dL POCT Glucose, Fingerstick Collection Time: 10/31/25 4:13 PM Specimen: Blood Result Value Ref Range POC Glucose 140 (H) 65 - 99 mg/dL POCT Glucose, Fingerstick Collection Time: 10/31/25 8:13 PM Specimen: Blood Result Value Ref Range POC Glucose 250 (H) 65 - 99 mg/dL POCT Glucose, Fingerstick Collection Time: 11/01/25 12:22 AM Specimen: Blood Result Value Ref Range POC Glucose 117 (H) 65 - 99 mg/dL Basic Metabolic Panel Collection Time: 11/01/25 4:02 AM Specimen: Blood Result Value Ref Range Glucose 134 (H) 65 - 99 mg/dL Blood Urea Nitrogen (BUN) 6 (L) 8 - 21 mg/dL Creatinine 1.03 0.40 - 1.10 mg/dL eGFR 65 >59 Sodium 142 136 - 145 mmol/L Potassium 4.1 3.4 - 5.3 mmol/L Chloride 108 (H) 98 - 107 mmol/L CO2 24 22 - 33 mmol/L Anion Gap 10 7 - 17 Calcium 7.9 (L) 8.7 - 10.5 mg/dL BUN/Creatinine Ratio 6 (L) 10.0 - 25.0 Ratio COMPLETE BLOOD COUNT, WITHOUT DIFFERENTIAL Collection Time: 11/01/25 4:02 AM Specimen: Blood Result Value Ref Range White Blood Cell Count 25.7 (H) 4.0 - 11.0 Thou/uL Platelet Count 551 (H) 150 - 450 Thou/uL Hemoglobin 9.0 (L) 11.7 - 15.7 g/dL Hematocrit 29.3 (L) 35.0 - 47.0 % Red Blood Cell Count 3.47 (L) 4.00 - 5.40 Mil/uL MCV 84 80 - 100 fL MCH 25.9 (L) 27.0 - 31.0 pg MCHC 30.7 30.0 - 36.0 g/dL RDW 18.5 (H) 11.5 - 14.5 % MPV 9.7 7.5 - 12.5 fL Magnesium Collection Time: 11/01/25 4:02 AM Specimen: Blood Result Value Ref Range Magnesium 1.5 (L) 1.6 - 2.7 mg/dL Phosphorus Collection Time: 11/01/25 4:02 AM Specimen: Blood Result Value Ref Range Phosphorus 3.2 2.7 - 4.5 mg/dL POCT Glucose, Fingerstick Collection Time: 11/01/25 4:14 AM Specimen: Blood Result Value Ref Range POC Glucose 144 (H) 65 - 99 mg/dL Cosigned by Hai Meneses MD at 11/01/2025 6:16 PM EST [facility], Hai Guido MD - 11/01/2025 6:16 PM EST I have personally interviewed and examined the patient and reviewed the resident's note. I agree with the history, exam, assessment and plan as detailed in the Resident's note with the following additions/exceptions/observations. wBC down trending. She is feeling well, tolerated breakfast. Abd softly distended, NT. Wound opened partially; will open further (up to umbilicus and down to the pubic symphysis). On exam fascia is intact. Edwin Meneses MD, MS Gynecologic Oncology Division [facility] 6:15 PM * Yvon Velez MD - 11/01/2025 6:23 AM EST Daily General Surgery Progress Note Assessment & Plan Sis Valdez is a 55 y.o. female who is POD#5 s/p exploratory laparotomy, ovarian cyst aspiration and washout, flexible sigmoidoscopy and loop colostomy creation for tubo-ovarian abscess complicated by rectal fistula (10/25). Post operative course has been complicated by leukocytosis to 33 and purulent drainage from the inferior midline incision noted on 10/29. The primary team removed several humza to the midline incision inferiorly and was packed with WTD gauze dressing. Clinically she is doing well, ostomy functioning and viable, tolerating clears. Plan - Diet: Clears, may advance to low fiber - Reach out to ostomy team for recommendations to improve seal - Care per primary team - Appreciate recommendations from Ostomy team - Please contact [facility] with any questions Subjective No acute events overnight. Pain currently well controlled. Denies nausea and vomiting. Tolerating diet. Voiding spontaneously. She is passing flatus, and stool in ostomy bag. Objective Last Vitals Pulse:68,Resp:18,BP:(!) 140/70 (Nurse Notified),SpO2:99 %,Weight:96.6 kg (212 lb 15.4 oz) Temp Last 24 hrs: Temp Min: 96.9 ??F (36.1 ??C) Max: 98.9 ??F (37.2 ??C) Last temp: 96.9 ??F (36.1 ??C) (Tympanic) Intake/Output Summary (Last 24 hours) at 11/01/2025 0623 Last data filed at 11/01/2025 0249 Gross per 24 hour Intake 1731 ml Output 6215 ml Net -4484 ml Physical Exam Gen: alert, no acute distress Card: regular rate Pulm: normal effort of breathing with no signs of acute respiratory distress Abd: soft, nondistended, no TTP, ostomy in place recently changed. Skin: warm and dry VTE Time Out Caprini SCORE: 7 (10/25/2025 9:06 PM) Interpretation - High Risk Chemical Prophylaxis enoxaparin (LOVENOX) syringe 40 mg Subcutaneous Every 24 hours scheduled Heparin Sodium (Porcine), Enoxaparin Sodium 40 mg Last dose 10/31/2025 8:59 AM Mechanical Prophylaxis SCDs are ordered - Bilateral (Knee High) Labs: White Blood Cell Count Date Value Ref Range Status 11/01/2025 25.7 (H) 4.0 - 11.0 Thou/uL Final Hemoglobin, I-STAT Date Value Ref Range Status 10/25/2025 9.9 (L) 11.7 - 15.7 gm/dL Final Hemoglobin Date Value Ref Range Status 11/01/2025 9.0 (L) 11.7 - 15.7 g/dL Final Hematocrit, I-STAT Date Value Ref Range Status 10/25/2025 29.0 (L) 35.0 - 47.0 % Final Hematocrit Date Value Ref Range Status 11/01/2025 29.3 (L) 35.0 - 47.0 % Final Platelet Count Date Value Ref Range Status 11/01/2025 551 (H) 150 - 450 Thou/uL Final Lab Results Component Value Date NA 142 11/01/2025 NA 145 10/25/2025 K 4.1 11/01/2025 K 4.0 10/25/2025 CL 108 (H) 11/01/2025 CO2 24 11/01/2025 CO2 25 10/25/2025 BUN 6 (L) 11/01/2025 CREAT 1.03 11/01/2025 GLUC 144 (H) 11/01/2025 GLUC 134 (H) 11/01/2025 GLUC 146 (H) 10/25/2025 Lab Results Component Value Date CALCIUM 7.9 (L) 11/01/2025 MG 1.5 (L) 11/01/2025 PHOS 3.2 11/01/2025 Lab Results Component Value Date AST 56 (H) 10/22/2025 ALT 28 10/22/2025 ALKPHOS 125 (H) 10/22/2025 BILITOT 0.3 10/22/2025 ALBUMIN 3.5 10/22/2025 PROT 7.2 10/22/2025 Lab Results Component Value Date LIPASE 32 10/22/2025 Lab Results Component Value Date PTT 26 10/22/2025 LABPROT 15.0 (H) 10/22/2025 INR 1.3 10/22/2025 Imaging Studies No results found. Electronically Signed Yvon Velez MD General Surgery, PGY-1 11/01/2025 6:23 AM Cosigned by Bharathi Amos MD at 11/01/2025 9:06 AM EST Associated attestation - Bharathi Amos MD - 11/01/2025 9:06 AM EST .Teaching Physician Attestation Level of Participation I have personally interviewed and examined the patient and reviewed Dr. Velez's note. I agree with the history, exam, assessment and plan as detailed in the resident/fellow's note with the following additions/exceptions/observations: CT imaging reviewed, discussed with Dr. Alicia, at this point, agree with diet advancement, appreciate ostomy nurses aid in terms of helping with a appropriate for her given the emergent nature of her partial large bowel obstruction adnexal abscess rectal fistula requiring a loop colostomy emergently * Elsy De La Torre MD - 10/31/2025 5:51 PM EST Brief Progress Note In room to evaluate patient with Dr. Alicia in the afternoon. Ostomy noted to be leaking with fecal content contaminating superficial wound dehiscence. Wound irrigated and flushed, wet-to-dry dressing removed and replaced. Ostomy removed and replaced. Notified by RN that this happened again later in the afternoon. Ostomy bag was again replaced. Patient was seen/is followed by Wound/it infrastructure manager. Will reach back out tomorrow for re-evaluation. Elsy De La Torre MD [facility] OBGYN Resident, PGY4 10/31/2025 5:53 PM * Elsy De La Torre MD - 10/31/2025 8:30 AM EST Gynecology Oncology Progress Note (delayed entry due to floor acuity and direct patient care) Assessment & Plan 55 y.o. admitted as a transfer from outside hospital due to worsening TOA POD#8 s/p IR guided placement of bilateral PCN and intra-abdominal drains now POD#6 s/p exploratory laparotomy, abdominal washout, loop colostomy and flex sigmoidoscopy for TOA, partial LBO, and rectal fistula. Recovering appropriately in postoperative setting - now with superficial wound dehiscence requiring packing changes. Plan for CT imaging today to assess interval change. Plan Neuro: Home psych meds restarted Medicine following MMPR with IV Tylenol and Dilaudid PRN. Holding NSAIDs due to MADELINE. CV/Pulm: COPD on 2L NC at baseline; currently saturating well on RA Lipitor ordered; home ASA held Heme: Hgb 7.5 >> 6.4 > 1u pRBCs > 7.5 > 1u pRBCs > 9.2 ID: Antibiotics transitioned from Zosyn to CTX/Flagyl per ID > Unasyn WBC 24.3 > 37.5 postoperatively > 33.9 >> 35.4 Ovarian abscess culture grew E.coli, S.constellatus and mixed anaerobes 10/23 Sacral abscess culture grew Enterococcus species (Amp-S, PCN-S), E.coli, S.constellatus and mixed anaerobes. GI: NPO > Clears > Low residue diet (10/28) > CLD (10/29) Diet per Surgery Surgery following, appreciate recommendations it infrastructure manager teaching : Petty out and patient voiding; bilateral PCNs in place Drain Strict I/Os Endocrine T2DM, FS/ISS Drains: New Juan drain placed in left adnexa abscess bed anterior to existing 10 Fr mini loop drain placedby IR on 10/23, exiting through right lower quadrant - output 250cc in last 24 hrs Existing 12 Fr drain placed in presacral abscess (right transgluteal) - output 40cc in past 24 hrs,predominantly gas/air Existing 10 Fr mini loop drain in left adnexa - 0cc output in last 24 hrs Existing bilateral 10 Fr percutaneous nephrosotomy tubes CT A/P w/ IV and PO contrast to evaluate drains and interval change in TOAs DVT ppx: Encourage ambulation, SCDs on and in place, lovenox Dispo: continue inpatient management Elsy De La Torre MD [facility] OBGYN Resident, PGY4 10/31/2025 5:00 PM Subjective Patient doing well this morning. Has been eating all of her meals, denies nausea or vomiting. Has been ambulating out of bed to chair. Has been passing flatus through ostomy. Tolerated dressing change well. Objective Physical Exam Last Vitals: Vitals: 10/31/25 1622 BP: 120/68 Pulse: 74 Resp: 18 Temp: 97.8 ??F (36.6 ??C) SpO2: 100% Weight: Height: Intake/Output Summary (Last 24 hours) at 10/31/2025 1700 Last data filed at 10/31/2025 1421 Gross per 24 hour Intake 1863 ml Output 4960 ml Net -3097 ml Gen: No apparent distress, alert and oriented Pulm: No increased work of breathing Abd: Soft, appropriately tender, non-distended, no rebound or guarding; ostomy with small amount ofgas and stool (liquid consistency) Incisions: Clean and intact with humza wound dehiscence approximately 6 cm; moistened kerlix removed and dressing changed with wet-to-dry and covered with ABD pad; healthy-appearing tissue, well-vascularized with granulation tissue noted; fascia noted to be intact No surrounding erythema, induration, drainage; large amount of gas in right transgluteal drain; serosanguinous output in two other drains; PCNs with lightly blood tinged urine Ext: calves equal and nontender, SCDs in place Labs: Recent Results (from the past 24 hours) POCT Glucose, Fingerstick Collection Time: 10/30/25 5:17 PM Specimen: Blood Result Value Ref Range POC Glucose 123 (H) 65 - 99 mg/dL POCT Glucose, Fingerstick Collection Time: 10/30/25 8:36 PM Specimen: Blood Result Value Ref Range POC Glucose 266 (H) 65 - 99 mg/dL Phosphorus Collection Time: 10/31/25 7:29 AM Specimen: Blood Result Value Ref Range Phosphorus 2.7 2.7 - 4.5 mg/dL Magnesium Collection Time: 10/31/25 7:29 AM Specimen: Blood Result Value Ref Range Magnesium 1.6 1.6 - 2.7 mg/dL COMPLETE BLOOD COUNT, WITHOUT DIFFERENTIAL Collection Time: 10/31/25 7:29 AM Specimen: Blood Result Value Ref Range White Blood Cell Count 27.0 (H) 4.0 - 11.0 Thou/uL Platelet Count 504 (H) 150 - 450 Thou/uL Hemoglobin 9.1 (L) 11.7 - 15.7 g/dL Hematocrit 28.4 (L) 35.0 - 47.0 % Red Blood Cell Count 3.42 (L) 4.00 - 5.40 Mil/uL MCV 83 80 - 100 fL MCH 26.6 (L) 27.0 - 31.0 pg MCHC 32.0 30.0 - 36.0 g/dL RDW 18.0 (H) 11.5 - 14.5 % MPV 9.6 7.5 - 12.5 fL nRBC 0.1 0.0 - 0.1 /100 WBC nRBC, Absolute 0.02 0.00 - 0.02 Thou/uL Basic Metabolic Panel Collection Time: 10/31/25 7:29 AM Specimen: Blood Result Value Ref Range Glucose 126 (H) 65 - 99 mg/dL Blood Urea Nitrogen (BUN) 4 (L) 8 - 21 mg/dL Creatinine 0.98 0.40 - 1.10 mg/dL eGFR 69 >59 Sodium 142 136 - 145 mmol/L Potassium 3.5 3.4 - 5.3 mmol/L Chloride 106 98 - 107 mmol/L CO2 24 22 - 33 mmol/L Anion Gap 12 7 - 17 Calcium 8.0 (L) 8.7 - 10.5 mg/dL BUN/Creatinine Ratio 4 (L) 10.0 - 25.0 Ratio POCT Glucose, Fingerstick Collection Time: 10/31/25 7:52 AM Specimen: Blood Result Value Ref Range POC Glucose 131 (H) 65 - 99 mg/dL POCT Glucose, Fingerstick Collection Time: 10/31/25 11:58 AM Specimen: Blood Result Value Ref Range POC Glucose 222 (H) 65 - 99 mg/dL POCT Glucose, Fingerstick Collection Time: 10/31/25 4:13 PM Specimen: Blood Result Value Ref Range POC Glucose 140 (H) 65 - 99 mg/dL Cosigned by Eddie Alicia MD at 10/31/2025 9:14 PM EST Associated attestation - Eddie Alicia MD - 10/31/2025 9:14 PM EST Teaching Physician Attestation Level of Participation I have personally interviewed and examined the patient during 10/31 afternoon rounds with the team.I reviewed Dr. De La Torre's note. I agree with the history, exam, assessment and plan as detailed in the resident's note. - Doing well on clears. Will advance to low fiber diet tomorrow per colorectal. - Ostomy leaking several times today. Appreciate assistance from ostomy team this week. Essential for her wound healing to minimize further leaks. - Repeat CT A/P read pending, but overall demonstrate good source control. Will remove left adnexalIR drain. - Her sister, Montse, is a nurse but she may need home health care versus SNF. Will engage social work/case management this coming week. * Luisa Lucio MD - 10/31/2025 8:18 AM EST Daily General Surgery Progress Note Hospital Day: 10 Principal Problem: Sepsis (HCC) (POA: Unknown) Active Problems: Type 2 diabetes mellitus (HCC) (POA: Yes) Schizophrenia (HCC) (POA: Yes) Postoperative hypothyroidism (POA: Yes) Obstructive sleep apnea syndrome (POA: Yes) Gastroesophageal reflux disease (POA: Yes) Hyperlipidemia (POA: Yes) Hypertension (POA: Yes) Chronic obstructive lung disease (HCC) (POA: Yes) Bipolar disorder (HCC) (POA: Yes) Tubo-ovarian abscess (POA: Unknown) Urinary tract infection (POA: Unknown) MADELINE (acute kidney injury) (POA: Unknown) Anemia (POA: Unknown) Hypocalcemia (POA: Unknown) Hypokalemia (POA: Unknown) High anion gap metabolic acidosis (POA: Unknown) Ureteral obstruction (POA: Yes) Resolved Problems: Assessment & Plan Assessment: Sis Valdez is a 55 y.o. female who is POD#5 s/p exploratory laparotomy, ovarian cyst aspiration and washout, flexible sigmoidoscopy and loop colostomy creation for tubo-ovarian abscess complicated by rectal fistula (10/25). Post operative course has been complicated by leukocytosis to 33 and purulent drainage from the inferior midline incision noted on 10/29. The primary team removed several humza to the midline incision inferiorly and was packed with WTD gauze dressing. Plan(s): - F/u AM labs - Diet: clears - Nausea and pain control - Abx: Unasyn - Plan for CTAP with IV and PO contrast per primary team today, will follow up - Monitor ostomy output - Monitor drains output - Encourage OOB / ambulation - Rest of care per primary team Please contact [facility] with any questions VTE Time Out Caprini SCORE: 7 (10/25/2025 9:06 PM) Interpretation - High Risk Chemical Prophylaxis enoxaparin (LOVENOX) syringe 40 mg Subcutaneous Every 24 hours scheduled Heparin Sodium (Porcine), Enoxaparin Sodium 40 mg Last dose 10/30/2025 8:46 AM Mechanical Prophylaxis SCDs are ordered - Bilateral (Knee High) Subjective No acute events overnight. No n/v, tolerating clears and having flatus/BM into ostomy bag. Has no complaints this morning. Aware of the plans for CT scan today, thankful for updates. OOB. Objective Last Vitals Pulse:68,Resp:18,BP:132/80,SpO2:98 %,Weight:96.6 kg (212 lb 15.4 oz) Temp Last 24 hrs: Temp Min: 96.4 ??F (35.8 ??C) Max: 98.9 ??F (37.2 ??C) Last temp: 98.9 ??F (37.2 ??C) (Tympanic) Patient to receive supplements: specific meal/ supplement; Supplements with: Breakfast; Order: Ensure Clear, Apple, 8 oz; Supplements with: Dinner; Order: Ensure Clear, Apple, 8 oz Patient to receive supplements: specific meal/ supplement; Supplements with: Lunch; Order: GelateinPlus, Lemon; Supplements with: Dinner; Order: Gelatein Plus, Lemon Diet Clear Liquid; Carb Controlled/ Diabetic Date 10/30/25 0700 - 10/31/25 0659 10/31/25 0700 - 11/01/25 0659 Shift [id number] 5322-9310 7990-9313 24 Hour Total 8012-0018 4900-6183 4609-8741 24 Hour Total INTAKE P.O. 360 240 600 Other 20 20 IV Piggyback 100 100 200 400 Shift Total(mL/kg) 480(5) 100(1) 440(4.6) 1020(10.6) OUTPUT Urine(mL/kg/hr) 850(1.1) 1200(1.6) 2750(3.6) 4800(2.1) Other 110 40 45 195 Stool 50 0 50 100 Shift Total(mL/kg) 1010(10.5) 1240(12.8) 2845(29.5) 5095(52.7) Weight (kg) 96.6 96.6 96.6 96.6 96.6 96.6 96.6 96.6 Physical Exam General appearance: NAD, AOx3. Cardiovascular: RRR Pulmonary: normal air movement, on RA Abdomen: Soft, non-distended, non-tender. Ostomy site is appropriate and has BM in bag. B/L nephrostomy tubes with clear output, right gluteal drain with seropurulent drainage, RLQ drain with ss output. LLQ drain with ss output. Extremities: No edema Labs: White Blood Cell Count Date Value Ref Range Status 10/30/2025 35.4 (HH) 4.0 - 11.0 Thou/uL Final Comment: Recurring Critical Result. Previously phoned. Hemoglobin, I-STAT Date Value Ref Range Status 10/25/2025 9.9 (L) 11.7 - 15.7 gm/dL Final Hemoglobin Date Value Ref Range Status 10/30/2025 9.2 (L) 11.7 - 15.7 g/dL Final Hematocrit, I-STAT Date Value Ref Range Status 10/25/2025 29.0 (L) 35.0 - 47.0 % Final Hematocrit Date Value Ref Range Status 10/30/2025 28.2 (L) 35.0 - 47.0 % Final Platelet Count Date Value Ref Range Status 10/30/2025 461 (H) 150 - 450 Thou/uL Final Lab Results Component Value Date NA 139 10/30/2025 NA 145 10/25/2025 K 3.8 10/30/2025 K 4.0 10/25/2025 CL 105 10/30/2025 CO2 25 10/30/2025 CO2 25 10/25/2025 BUN 3 (L) 10/30/2025 CREAT 0.88 10/30/2025 GLUC 131 (H) 10/31/2025 GLUC 138 (H) 10/30/2025 GLUC 146 (H) 10/25/2025 Lab Results Component Value Date CALCIUM 7.7 (L) 10/30/2025 MG 1.8 10/30/2025 PHOS 2.7 10/30/2025 Lab Results Component Value Date AST 56 (H) 10/22/2025 ALT 28 10/22/2025 ALKPHOS 125 (H) 10/22/2025 BILITOT 0.3 10/22/2025 ALBUMIN 3.5 10/22/2025 PROT 7.2 10/22/2025 Lab Results Component Value Date LIPASE 32 10/22/2025 Lab Results Component Value Date PTT 26 10/22/2025 LABPROT 15.0 (H) 10/22/2025 INR 1.3 10/22/2025 Luisa Lucio MD, JOSE General Surgery PGY-4 10/31/2025 8:20 AM * Gregory Celaya MD - 10/30/2025 9:20 AM EST Gynecology Oncology Progress Note Assessment & Plan 55 y.o. admitted as a transfer from outside hospital due to worsening TOA status post IR guided placement of bilateral PCN and intra-abdominal drains now POD#5 s/p exploratory laparotomy, abdominal washout, loop colostomy and flex sigmoidoscopy for TOA, partial LBO, and rectal fistula. She is continuing to progress in the postoperative setting. Plan Neuro: Home psych meds restarted Medicine following MMPR with IV Tylenol and Dilaudid PRN. Holding NSAIDs due to MADELINE. CV/Pulm: COPD on 2L NC at baseline Lipitor ordered; home ASA held Heme: Hgb 7.5 >> 6.4 > 1u pRBCs > 7.5 > 1u pRBCs > 9.2 ID: Antibiotics transitioned from Zosyn to CTX/Flagyl per ID > Unasyn WBC 24.3 > 37.5 postoperatively > 33.9 >> 35.4 Ovarian abscess culture grew E.coli, S.constellatus and mixed anaerobes 10/23 Sacral abscess culture grew Enterococcus species (Amp-S, PCN-S), E.coli, S.constellatus and mixed anaerobes. GI: NPO > Clears > Low residue diet (10/28) > as tolerated Surgery following, appreciate recommendations it infrastructure manager teaching : Petty out and patient voiding; bilateral PCNs in place Drain Strict I/Os Endocrine T2DM, FS/ISS Drains: New Juan drain placed in left adnexa abscess bed anterior to existing 10 Fr mini loop drain placedby IR on 10/23, exiting through right lower quadrant - output 250cc in last 24 hrs Existing 12 Fr drain placed in presacral abscess (right transgluteal) - output 40cc in past 24 hrs,predominantly gas/air Existing 10 Fr mini loop drain in left adnexa - 0cc output in last 24 hrs Existing bilateral 10 Fr percutaneous nephrosotomy tubes Will consult IR regarding replacement of dressings around drains and PCNs, to evaluate for ? Air leak in right gluteal drain DVT ppx: Encourage ambulation, SCDs on and in place, lovenox Dispo: continue inpatient management Gregory Nguyen (Elcho) MD [facility] Residency PGY-4 Pager: [phone] Also available on [employer] 10/30/2025 11:23 AM Subjective Patient doing okay this morning. Pain well controlled. She was able to ambulate several times yesterday. Voiding without issue since petty was removed. Tolerating low residue diet without nausea/vomiting. Denies chest pain, shortness of breath. Objective Physical exam Last Vitals: Vitals: 10/30/25 0746 BP: 110/60 Pulse: 64 Resp: 18 Temp: 96.8 ??F (36 ??C) SpO2: 98% Weight: Height: Intake/Output Summary (Last 24 hours) at 10/30/2025 0920 Last data filed at 10/30/2025 0826 Gross per 24 hour Intake 1970 ml Output 5705 ml Net -3735 ml Gen: No apparent distress, alert and oriented Pulm: No increased work of breathing Abd: Soft, appropriately tender, non-distended, no rebound or guarding; ostomy with small amount ofgas and stool Incisions: Clean and intact with surgical glue with small amount of weeping inferior to umbilicus. No surrounding erythema, induration, drainage; large amount of gas in right transgluteal drain; serosanguinous output in two other drains; PCNs with lightly blood tinged urine Ext: calves equal and nontender, SCDs in place Labs: Recent Results (from the past 24 hours) POCT Glucose, Fingerstick Collection Time: 10/29/25 11:53 AM Specimen: Blood Result Value Ref Range POC Glucose 190 (H) 65 - 99 mg/dL POCT Glucose, Fingerstick Collection Time: 10/29/25 5:07 PM Specimen: Blood Result Value Ref Range POC Glucose 183 (H) 65 - 99 mg/dL POCT Glucose, Fingerstick Collection Time: 10/29/25 9:27 PM Specimen: Blood Result Value Ref Range POC Glucose 171 (H) 65 - 99 mg/dL COMPLETE BLOOD COUNT, WITHOUT DIFFERENTIAL Collection Time: 10/30/25 7:28 AM Specimen: Blood Result Value Ref Range White Blood Cell Count 35.4 (HH) 4.0 - 11.0 Thou/uL Platelet Count 461 (H) 150 - 450 Thou/uL Hemoglobin 9.2 (L) 11.7 - 15.7 g/dL Hematocrit 28.2 (L) 35.0 - 47.0 % Red Blood Cell Count 3.45 (L) 4.00 - 5.40 Mil/uL MCV 82 80 - 100 fL MCH 26.7 (L) 27.0 - 31.0 pg MCHC 32.6 30.0 - 36.0 g/dL RDW 17.3 (H) 11.5 - 14.5 % MPV 9.3 7.5 - 12.5 fL nRBC 0.1 0.0 - 0.1 /100 WBC nRBC, Absolute 0.02 0.00 - 0.02 Thou/uL Basic Metabolic Panel Collection Time: 10/30/25 7:28 AM Specimen: Blood Result Value Ref Range Glucose 138 (H) 65 - 99 mg/dL Blood Urea Nitrogen (BUN) 3 (L) 8 - 21 mg/dL Creatinine 0.88 0.40 - 1.10 mg/dL eGFR 79 >59 Sodium 139 136 - 145 mmol/L Potassium 3.8 3.4 - 5.3 mmol/L Chloride 105 98 - 107 mmol/L CO2 25 22 - 33 mmol/L Anion Gap 9 7 - 17 Calcium 7.7 (L) 8.7 - 10.5 mg/dL BUN/Creatinine Ratio 3 (L) 10.0 - 25.0 Ratio Magnesium Collection Time: 10/30/25 7:28 AM Specimen: Blood Result Value Ref Range Magnesium 1.8 1.6 - 2.7 mg/dL Phosphorus Collection Time: 10/30/25 7:28 AM Specimen: Blood Result Value Ref Range Phosphorus 2.7 2.7 - 4.5 mg/dL POCT Glucose, Fingerstick Collection Time: 10/30/25 8:09 AM Specimen: Blood Result Value Ref Range POC Glucose 127 (H) 65 - 99 mg/dL Cosigned by Eddie Alicia MD at 10/30/2025 10:33 PM EST Associated attestation - Eddie Alicia MD - 10/30/2025 10:33 PM EST Teaching Physician Attestation Level of Participation I have personally interviewed and examined the patient during 10/30 afternoon rounds with the team.I reviewed Dr. Celaya's note. I agree with the history, exam, assessment and plan as detailed in the resident's note. - Pain well controlled. Tolerating clears without nausea. Ostomy with some stool and gas. Voiding freely. Ambulating. - WBC still elevated in 30s. Abdomen distended. Drain output reviewed. - Clinically stable, but will repeat CT A/P with PO/IV contrast to re-evaluate source control givensome intermittent low drain output from L adnexa IR drain and presacral transgluteal IR drain. After discussion with colorectal surgery attending distribution center administrator, will NOT perform sinogram as not planning toremove presacral drain and L adnexa seems to be adequately controlled with surgical Juan drain. Will consider pulling L adnexal IR placed drain pending CT A/P. * Nola Gallo PA-C - 10/30/2025 6:59 AM EST Daily General Surgery Progress Note Hospital Day: 9 Principal Problem: Sepsis (HCC) (POA: Unknown) Active Problems: Type 2 diabetes mellitus (HCC) (POA: Yes) Schizophrenia (HCC) (POA: Yes) Postoperative hypothyroidism (POA: Yes) Obstructive sleep apnea syndrome (POA: Yes) Gastroesophageal reflux disease (POA: Yes) Hyperlipidemia (POA: Yes) Hypertension (POA: Yes) Chronic obstructive lung disease (HCC) (POA: Yes) Bipolar disorder (HCC) (POA: Yes) Tubo-ovarian abscess (POA: Unknown) Urinary tract infection (POA: Unknown) MADELINE (acute kidney injury) (POA: Unknown) Anemia (POA: Unknown) Hypocalcemia (POA: Unknown) Hypokalemia (POA: Unknown) High anion gap metabolic acidosis (POA: Unknown) Ureteral obstruction (POA: Yes) Resolved Problems: Assessment & Plan Assessment: Sis Valdez is a 55 y.o. female who is POD#5 s/p exploratory laparotomy, ovarian cyst aspiration and washout, flexible sigmoidoscopy and loop colostomy creation for tubo-ovarian abscess complicated by rectal fistula (10/25). Patient tolerating diet without n/v and ostomy with flatus/BM. Her WBC was noted to be 33 yesterday from 31.4 the day prior. Purulent drainage was noted to the inferior portion of her midline incision yesterday, several humza were removed to inferior portion of her midline incision and this was packed with a WTD gauze dressing per the primary team. Plan(s): - F/U WBC this morning - Ostomy teaching - Diet: as tolerated - Nausea and pain control - Abx: Unasyn (EOT: tbd) - Encourage OOB / ambulation - Appreciate care per IM, ID, and BENDER MACHINE Please contact [facility] with any questions VTE Time Out Caprini SCORE: 7 (10/25/2025 9:06 PM) Interpretation - High Risk Chemical Prophylaxis enoxaparin (LOVENOX) syringe 40 mg Subcutaneous Every 24 hours scheduled Heparin Sodium (Porcine), Heparin Sodium (Porcine) 5000 Units Last dose 10/28/2025 3:58 AM Enoxaparin Sodium 40 mg Last dose 10/29/2025 8:44 AM Mechanical Prophylaxis SCDs are ordered - Bilateral (Knee High) Subjective No acute events overnight. No n/v, tolerating diet and having flatus/BM into ostomy bag. Objective Last Vitals Pulse:67,Resp:18,BP:120/70,SpO2:98 %,Weight:96.6 kg (212 lb 15.4 oz) Temp Last 24 hrs: Temp Min: 96.4 ??F (35.8 ??C) Max: 96.9 ??F (36.1 ??C) Last temp: 96.7 ??F (35.9 ??C) (Tympanic) Diet Clear Liquid Patient to receive supplements: specific meal/ supplement; Supplements with: Breakfast; Order: Ensure Clear, Apple, 8 oz; Supplements with: Dinner; Order: Ensure Clear, Apple, 8 oz Patient to receive supplements: specific meal/ supplement; Supplements with: Lunch; Order: GelateinPlus, Lemon; Supplements with: Dinner; Order: Gelatein Plus, Lemon Date 10/29/25 07 - 10/30/25 0659 10/30/25 07 - 10/31/25 0659 Shift [id number] [id number] 9535-1785 24 Hour Total [id number] 9428-0922 8000-2796 24 Hour Total INTAKE P.O. 1080 427 694 3350 I.V.(mL/kg) 10(0.1) 10(0.1) Other 20 40 20 80 IV Piggyback 200 200 Shift Total(mL/kg) 1100(11.4) 460(4.8) 950(9.8) 2510(26) OUTPUT Urine(mL/kg/hr) 895(1.2) 2275(2.9) 1685 4855 Other 160 150 135 445 Stool 100 100 280 480 Irrigation 15 15 30 Shift Total(mL/kg) 1170(12.1) 2540(26.3) 2100(21.7) 5810(60.1) Weight (kg) 96.6 96.6 96.6 96.6 96.6 96.6 96.6 96.6 Physical Exam General appearance: NAD, AOx3. Cardiovascular: RRR Pulmonary: normal air movement, on RA Abdomen: Soft, non-distended, non-tender. Ostomy site is appropriate and has BM in bag. B/L nephrostomy tubes with blood-tinged urine, right gluteal drain with seropurulent drainage, RLQ drain with ss output. LLQ drain with ss output. Extremities: No edema Labs: White Blood Cell Count Date Value Ref Range Status 10/29/2025 33.0 (HH) 4.0 - 11.0 Thou/uL Final Comment: Recurring Critical Result. Previously phoned. Hemoglobin, I-STAT Date Value Ref Range Status 10/25/2025 9.9 (L) 11.7 - 15.7 gm/dL Final Hemoglobin Date Value Ref Range Status 10/29/2025 8.8 (L) 11.7 - 15.7 g/dL Final Hematocrit, I-STAT Date Value Ref Range Status 10/25/2025 29.0 (L) 35.0 - 47.0 % Final Hematocrit Date Value Ref Range Status 10/29/2025 27.3 (L) 35.0 - 47.0 % Final Platelet Count Date Value Ref Range Status 10/29/2025 426 150 - 450 Thou/uL Final Lab Results Component Value Date NA 141 10/29/2025 NA 145 10/25/2025 K 3.5 10/29/2025 K 4.0 10/25/2025 CL 106 10/29/2025 CO2 25 10/29/2025 CO2 25 10/25/2025 BUN 5 (L) 10/29/2025 CREAT 0.91 10/29/2025 GLUC 171 (H) 10/29/2025 GLUC 119 (H) 10/29/2025 GLUC 146 (H) 10/25/2025 Lab Results Component Value Date CALCIUM 7.1 (L) 10/29/2025 MG 1.6 10/29/2025 PHOS 2.2 (L) 10/29/2025 Lab Results Component Value Date AST 56 (H) 10/22/2025 ALT 28 10/22/2025 ALKPHOS 125 (H) 10/22/2025 BILITOT 0.3 10/22/2025 ALBUMIN 3.5 10/22/2025 PROT 7.2 10/22/2025 Lab Results Component Value Date LIPASE 32 10/22/2025 Lab Results Component Value Date PTT 26 10/22/2025 LABPROT 15.0 (H) 10/22/2025 INR 1.3 10/22/2025 Imaging Studies No results found. Nola Gallo PA-C General Surgery 10/30/2025 7:08 AM * Mare Cruz MD - 10/29/2025 6:01 PM EST BENDER MACHINE Oncology Progress Note Patient is POD#4 s/p ex lap, abdominal washout, diverting colostomy, and flexible sigmoidoscopy forTOA, partial LBO, and rectal fistula. Incision with purulent drainage this morning in about 4cm of midline vertical incision just inferior to the umbilicus. Vernon were removed from this area and the subcutaneous tissue fell open. This was gently debrided using gauze at bedside and then wet to drykerlex packed. ABD pad placed over this area. Will plan to change BID. 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 Patient reported that she lives with her spouse, adult son and daughter in a two level home in [place]. Reports at baseline she is very independent,confirmed PCP. Reviewed with patient that providers are documenting a need for dispenser operator IV antibiotics. Patient in agreement with referral to [facility] for IV antibiotics. Reports she does not really need a home care agency, but if absolutely necessary agrees on referral to be placed. Patient declined transition to STR, agrees with discharge referral to be placed to set up for home with services. Offered to call her spouse to provide update, patient requested CM call her sister Shaneka. Shaneka stated that patients spouse works during the day and so does she, but her adult daughter is in the home and can assist during the day, Shaneka willing to assist patient in the afternoon and evening, and reports spouse can assist at night, with home IV antibiotics. Shaneka reported she is familiar with process for IV antibiotics, and agrees for CM to place referrals to [facility] and [facility], reports that agencies can assist with IV antibiotics, referrals placed. Anticipated transition home with services. * Jenny Sanches MD - 10/29/2025 1:22 PM EST Images from the original note were not included. [facility]CM[facility] ID Progress Note Name: Sis Valdez Age: 55 y.o. Sex: female ASSESSMENT & PLAN Sis Valdez is a 55 year-old female with history of DM, DANIEL, thyroid cancer s/p resection, lung cancer s/p resection, recurrent uterine bleeding who was transferred from [facility] for escalation of care in the setting of tubo- ovarian abscess, acute renal failure and shock She was recently admitted to [facility] 10/01-10/08 due to TOA and MADELINE. She underwent IR drainage but no drain was left in. Culture from IR drainage was negative. She was givem meropenem in thebeginning and was discharged on Amox- clav and Flagyl. She was off treatment for 10 days. Assessment: 1) Tubo-ovarian abscess 2) Rectal fistula 3) Bilateral severe hydroureteronephrosis s/p PCN placement, improved 4) MADELINE - s/p exploratory laparotomy, abdominal washout, drainage of pelvic abscess on 10/25. A pinpoint rectal fistula was found on flexible sigmoidoscopy. 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 There is no Actinomyces growth noted from the culture from 10/23 after 5 days. No OR cultures were sent on 10/25. Plan: Continue IV Unasyn 3g q6hr. Would plan to follow up CT in 2 weeks from surgery. If WBC is persistently elevated in the similar range, would repeat CT sooner. She will be on antibiotics until abscess resolution, anticipating 4 weeks from the OR date Monitor WBC. ANTIBIOTIC TIME OUT Current antibiotic/day of therapy: Anti-infectives (From admission, onward) Start Dose/Rate Route Frequency Ordered Stop 10/26/25 1800 ampicillin-sulbactam (UNASYN) 3 g in sodium chloride-MBP (NS) 100 mL IVPB-MBP 3 g 100 mL/hr over 60 Minutes Intravenous Every 6 hours 10/26/25 1420 SUBJECTIVE NAEO. She is virtually monitored. Denies abdominal pain. In good spirit. OBJECTIVE Physical Examination: Vitals: 10/29/25 1602 BP: 110/64 Pulse: 66 Resp: 18 Temp: 96.9 ??F (36.1 ??C) SpO2: 97% Weight: Height: General appearance - awake, NAD HEENT - EOMI Abdomen -soft, distended, multiple abscess drains (RLQ, LLQ, transgluteal), 2 PCNs, colostomy bag in place SKIN- No rash or ulcer Neuro- AOx3 LABORATORY AND DIAGNOSTIC DATA: Lab and imaging data were reviewed by ms -Blood cultures 10[place]22 [place] [place] NGTD -Urine cultures 10/22 ([facility] [place] >100,000 GNR -C. Diff negative -Blood cultures 10/22: NGTD -MRSA Nares negative Results from last 7 days Lab Units 10/29/25 0729 10/28/25 0648 10/28/25 0616 WHITE BLOOD CELL COUNT Thou/uL 33.0* 31.4* 32.3* HEMOGLOBIN g/dL 8.8* 7.1* 7.5* HEMATOCRIT % 27.3* 22.0* 23.9* PLATELET COUNT Thou/uL 426 402 450 Results from last 7 days Lab Units 10/29/25 1707 10/29/25 1153 10/29/25 0826 10/29/25 0729 10/28/25 0833 10/28/25 0648 10/27/25 1149 10/27/25 0754 10/23/25 0246 10/22/25 1818 SODIUM mmol/L -- -- -- 141 -- 143 -- 149* < > 135* SODIUM, ISTAT -- -- -- -- -- -- -- -- < > -- POTASSIUM, ISTAT -- -- -- -- -- -- -- -- < > -- POTASSIUM mmol/L -- -- -- 3.5 -- 3.3* -- 3.4 < > 3.2* CHLORIDE mmol/L -- -- -- 106 -- 108* -- 113* < > 96* CO2 mmol/L -- -- -- 25 -- 26 -- 23 < > 20* TCO2 ART CALC, I-STAT -- -- -- -- -- -- -- -- < > -- BUN mg/dL -- -- -- 5* -- 6* -- 9 < > 45* CREATININE mg/dL -- -- -- 0.91 -- 1.08 -- 1.26* < > 3.83* CALCIUM mg/dL -- -- -- 7.1* -- 7.3* -- 8.0* < > 7.8* GLUCOSE, ISTAT -- -- -- -- -- -- -- -- < > -- GLUCOSE mg/dL -- -- -- 119* -- 125* -- 126* < > 85 GLUCOSE, POC mg/dL 183* 190* 130* -- < > -- < > -- < > -- EGFR -- -- -- 75 -- 61 -- 51* < > 13* ALBUMIN g/dL -- -- -- -- -- -- -- -- -- 3.5 PROTEIN, TOTAL g/dL -- -- -- -- -- -- -- -- -- 7.2 BILIRUBIN TOTAL mg/dL -- -- -- -- -- -- -- -- -- 0.3 ALK PHOS U/L -- -- -- -- -- -- -- -- -- 125* ALT U/L -- -- -- -- -- -- -- -- -- 28 AST U/L -- -- -- -- -- -- -- -- -- 56* < > = values in this interval not displayed. Lab Results Component Value Date ALT 28 10/22/2025 AST 56 (H) 10/22/2025 ALKPHOS 125 (H) 10/22/2025 BILITOT 0.3 10/22/2025 Results from last 7 days Lab Units 10/22/25 1818 PROTHROMBIN TIME (PT) seconds 15.0* APTT seconds 26 INR 1.3 proBNP, N-terminal Date Value Ref Range Status 10/23/2025 1,039 (H) <125 pg/mL Final No results found for: SEDRATE No results found for: CRP Blood Cultures: Lab Results Component Value Date CULTURE 10/23/2025 No aerobes isolated after 3 days and no anaerobes isolated after 5 days. Urine Cultures: Lab Results Component Value Date HYALNCSTUA Present 10/22/2025 BILIUA Negative 10/22/2025 BLOODUA Small (A) 10/22/2025 CLARITYUA Cloudy 10/22/2025 COLORUA Yellow 10/22/2025 KETONESUA Negative 10/22/2025 LEUKOCYTESUA Moderate (A) 10/22/2025 NITRITEUA Negative 10/22/2025 PHUA 5.0 10/22/2025 PROTEINUA Trace (A) 10/22/2025 RBCUA 1 10/22/2025 SPECGRAVUA 1.010 10/22/2025 WBCUA >25 (H) 10/22/2025 OTHER MICROBIOLOGY: C. Difficile: No results found for: CDIFFTOX , NAP1 Imaging Studies XR Abdomen 1 view-Portable Result Date: 10/25/2025 EXAMINATION: XR ABDOMEN KUB CLINICAL INDICATION: incorrect count COMPARISON: None available. TECHNIQUE: AP view of the abdomen. FINDINGS: There is a surgical probe overlying the pelvis/vagina. Bilateral nephrostomy tube catheters are noted. 3 pelvic surgical drains are noted. Surgical probe overlying the pelvis/vagina, please remove and repeat films. Report communicated intraoperatively to Dr. Alicia at 8:[address] Abdomen+pelvis w/contrast Result Date: 10/25/2025 EXAMINATION: CT ABDOMEN AND PELVIS WITH CONTRAST CLINICAL INFORMATION: Concern for bowel perforation COMPARISON: 10/22/2025 TECHNIQUE: Contiguous axial images were obtained through the abdomen and pelvis after administration of contrast 60 mL of Omnipaque 350. Coronal and sagittal reformations wereperformed. Oral contrast was not administered. Iodinated contrast, diluted in 1-10 solution was injected directly into the drains. 10 mL of contrast was evidently injected into the left lower quadrant drain which elucidated pain. 20 mL of contrast solution was injected into the right transgluteal drain. Following the first and an additional 50 mL of dilute contrast solution was injected into the perirectal drain and a secondary CT of the pelvis only was performed. This CT examination was performed using dose optimization techniques as appropriate, variously including the following: *Automatedexposure control *Adjustment of mA and/or kV according to patient size (this includes techniques orstandardized protocols for targeted exams where dose is matched to indication/reason for exam; i.e. extremities or head) *Use of iterative reconstruction technique DLP: 630.46 mGy- cm, followed by 540.17 mGy-cm FINDINGS: LUNG BASES: The visualized lung bases are clear. LIVER: Homogeneous in attenuation. Normal in size. No focal lesion. GALLBLADDER: Status post cholecystectomy with surgical clips in the gallbladder fossa. BILIARY SYSTEM: No intrahepatic or extrahepatic biliary ductal dilation. PANCREAS: Homogeneous in attenuation. No pancreatic ductal dilatation. No focal lesion. SPLEEN: Upper limits of normal in size measuring 12 cm in the longest dimension. ADRENAL GLANDS: No focal nodule. KIDNEYS/BLADDER: Bilateral kidneys demonstrate symmetric enhancement. Bilateral nephrostomy tubes inplace with pigtails in the renal pelvis. Interval resolution of severe bilateral hydroureteronephrosis. GASTROINTESTINAL: Redemonstration of inflammatory changes along the distal sigmoid and rectum. In the proximal rectum there is fistulous communication with the adjacent abscess cavity best delineated on sagittal views (series 602 image 76 and 77). APPENDIX: The appendix is seen in its entirety a nd is unremarkable. PERITONEUM: No pneumoperitoneum. No ascites. No intra- abdominal fluid collection. LYMPH NODES: No pathologically enlarged abdominal or pelvic lymph nodes. PELVIC STRUCTURES: Redemonstration of right adnexal abscess, confirmed pyosalpinx with interval decrease size status post left lower quadrant approach small pigtail catheter placement.. The structure now measures 6.2 x 4.6 x4.5 cm , previously 10.9 x 4.9 x 6.6 cm. Medially adjacent to this is a pocket of air filled collection that is continuous with the perirectal abscess. The perirectal abscess is status post right transgluteal pigtail catheter placement and measures measures 9.6 x 4.1 x 5.7 cm (series 602 image 74).This abscess shows a fistulous communication with the adjacent rectum as described above. SOFT TISSUES: No significant hernia visualized. MUSCULOSKELETAL: Multilevel degenerative changes of the spine. 1. Redemonstration of right adnexal abscess, confirmed pyosalpinx with interval decrease size status post left lower quadrant approach small pigtail catheter placement. 2. Air and fluid-filled perirectal abscess is status post right transgluteal pigtail catheter placement and measures 9.6 x 4.1 x 5.7 cm This abscess shows a fistulous communication with the adjacent rectum. 3. Bilateral nephrostomy tubes in place with pigtails in the renal pelvis. Interval resolution of severe bilateral hydroureteronephrosis. Findings communicated with general surgery team at the time of the scan. Fleischner guidelines were followed. Current Medications: Current Medications[1] ALLERGIES: Allergies[2] > 35 min spent reviewing records, evaluating the patient, and formulating a plan of care Of note, some information is being carried forward from prior records for informational purposes only and is being cited so that efficiency, safety and quality of this patient's care is not compromised Sign Jenny Sanches MD ON LICENSE OF [facility] Infectious Diseases Available via [employer] [facility] [1] Current Facility-Administered Medications Medication Dose Route Frequency Provider Last Rate Last Admin albuterol (PROVENTIL HFA; VENTOLIN HFA) inhaler 2 puff 2 puff Inhalation Q4H PRN Kelly Pérez MD ampicillin-sulbactam (UNASYN) 3 g in sodium chloride-MBP (NS) 100 mL IVPB-MBP 3 g Intravenous Q6H Jenny Sanches MD 100 mL/hr at 10/29/25 1754 3 g at 10/29/25 1754 ARIPiprazole (ABILIFY) tablet 20 mg 20 mg Oral Daily Mare Cruz MD 20 mg at 10/29/25 0844 [Provider Held] ascorbic acid (VITAMIN C) tablet 250 mg 250 mg Oral Daily Roberto Freedman MD 250 mg at 10/25/25 1018 [Provider Held] aspirin enteric coated (ECOTRIN LOW STRENGTH) tablet 81 mg 81 mg Oral Nightly Roberto Freedman MD atorvastatin (LIPITOR) tablet 40 mg 40 mg Oral Nightly Mare Cruz MD 40 mg at 10/28/25 2118 [Provider Held] baclofen (LIORESAL) tablet 10 mg 10 mg Oral TID Kelly Pérez MD 10 mg at 10/25/25 1403 buPROPion (WELLBUTRIN XL) 24 hr tablet 300 mg 300 mg Oral QAM Mare Cruz MD 300 mg at 10/29/25 0607 chlorhexidine gluconate 2 % wipes - daily CHG application Topical Daily Cami Pike MD 1 each at 10/28/25 1016 clonazePAM (KlonoPIN) tablet 1 mg 1 mg Oral Q12H PRN Mare Cruz MD 1 mg at 10/29/25 0233 glucose (GLUTOSE 15) 40 % oral gel 37.5 g 1 Tube Oral Q15 Min PRN Mare Cruz MD Or glucose (GLUTOSE 15) 40 % oral gel 75 g 2 Tube Oral Q15 Min PRSerina Cruz MD Or dextrose 50 % solution 12.5 g 12.5 g Intravenous Q15 Min PRN Mare Cruz MD Or dextrose 50 % solution 25 g 25 g Intravenous Q15 Min PRSerina Cruz MD Or glucagon (GLUCAGEN) injection 1 mg 1 mg Intramuscular Daily PRN Mare Cruz MD diclofenac (VOLTAREN) 1 % gel 2 g 2 g Topical 4x Daily Roberto Freedman MD 2 g at 10/24/25 0826 [Provider Held] docusate sodium (COLACE) capsule 100 mg 100 mg Oral BID Roberto Freedman MD 100 mg at 10/25/25 1018 enoxaparin (LOVENOX) syringe 40 mg 40 mg Subcutaneous Q24H [facility] Noe Masters DO 40 mg at 844 [Provider Held] ferrous sulfate EC tablet 325 mg 325 mg Oral Daily Roberto Freedman MD 325 mg at112/26/24 1018 [Provider Held] gabapentin (NEURONTIN) capsule 300 mg 300 mg Oral TID Kelly Pérez MD 300 mg at 10/25/25 1417 haloperidol (HALDOL) tablet 2.5 mg 2.5 mg Oral BID Mare Cruz MD 2.5 mg at 10/29/25 0845 HYDROmorphone (DILAUDID) injection 0.5 mg 0.5 mg Intravenous Q3H PRN Kelly Pérez MD 0.5 mg at 10/28/25 1609 HYDROmorphone (DILAUDID) injection 0.8 mg 0.8 mg Intravenous Q3H PRN Kelly Pérez MD 0.8 mg at 10/27/25 1551 HYDROmorphone (DILAUDID) injection 1 mg 1 mg Intravenous Q3H PRN Kelly Pérez MD 1 mg at 10/29/25 0648 [Provider Held] hydrOXYzine HCl (ATARAX) tablet 50 mg 50 mg Oral Q6H PRN Roberto Freedman MD insulin lispro (HumaLOG/ADMELOG) 100 units/mL injection 1-6 Units 1-6 Units Subcutaneous TID with meals Mare Cruz MD 2 Units at 10/29/25 1754 levothyroxine (SYNTHROID, LEVOTHROID) tablet 250 mcg 250 mcg Oral Daily 6AM Brandi Clifford MD 250 mcg at 10/29/25 0607 [Provider Held] lisinopril (PRINIVIL,ZeSTRIL) tablet 2.5 mg 2.5 mg Oral Daily Roberto Freedman MD loratadine (CLARITIN) tablet 10 mg 10 mg Oral QAM Mare Cruz MD 10 mg at 10/29/25 0846 melatonin tablet 3 mg 3 mg Oral Nightly Kelly Pérez MD 3 mg at 10/28/252117 montelukast (SINGULAIR) tablet 10 mg 10 mg Oral Nightly Mare Cruz MD 10 mg at 10/28/252117 naloxone (NARCAN) 0.4 mg/mL injection 0.4 mg 0.4 mg Intravenous Q5 Min PRN Kelly Pérez MD ondansetron (ZOFRAN) injection 4 mg 4 mg Intravenous Q6H PRN Kelly Pérez MD [Provider Held] oxyCODONE (ROXICODONE) immediate release tablet 10 mg 10 mg Oral Q3H PRN Kelly Pérez MD [Provider Held] oxyCODONE (ROXICODONE) immediate release tablet 5 mg 5 mg Oral Q3H PRN Kelly Pérez MD 5 mg at 10/26/25 0947 PANTOprazole (PROTONIX) EC tablet 40 mg 40 mg Oral Daily Mare Cruz MD 40 mg at 10/29/25 0844 potassium chloride (KLOR-CON M20) CR tablet 20 mEq 20 mEq Oral q2h Elif Rose PA-C 20 mEq at 10/29/25 1755 potassium phosphate and sodium phosphate (K PHOS NEUTRAL) tablet 500 mg 500 mg Oral With meals & nightly Elif Rose PA-C 500 mg at 10/29/25 1755 simethicone (MYLICON) chewable tablet 80 mg 80 mg Oral Q6H PRN Kelly Pérez MD sucralfate (CARAFATE) tablet 1 g 1 g Oral 4x daily Mare Cruz MD 1 g at 10/29/25 175 [2] No Known Allergies * Mare Cruz MD - 10/29/2025 7:17 AM EST Gynecology Oncology Progress Note Assessment & Plan 55 y.o. admitted as a transfer from outside hospital due to worsening TOA status post IR guided placement of bilateral PCN and intra-abdominal drains now POD#4 s/p exploratory laparotomy, abdominal washout, loop colostomy and flex sigmoidoscopy for TOA, partial LBO, and rectal fistula. She is continuing to progress in the postoperative setting. Plan Neuro: Home psych meds restarted Medicine following MMPR with IV Tylenol and Dilaudid PRN. Holding NSAIDs due to MADELINE. CV/Pulm: COPD on 2L NC at baseline Lipitor ordered; home ASA held Heme: Hgb 7.5 >> 6.4 > 1u pRBCs > 7.5 > 1u pRBCs > AM CBC pending ID: Antibiotics transitioned from Zosyn to CTX/Flagyl per ID WBC 24.3 > 37.5 postoperatively > 33.9 > 31.4 GI: NPO > Clears > Low residue diet (10/28) Surgery following, appreciate recommendations it infrastructure manager teaching : Petty out and patient voiding; bilateral PCNs in place Drain Strict I/Os Endocrine T2DM, FS/ISS Drains: New Juan drain placed in left adnexa abscess bed anterior to existing 10 Fr mini loop drain placedby IR on 10/23, exiting through right lower quadrant - output 250cc in last 24 hrs Existing 12 Fr drain placed in presacral abscess (right transgluteal) - output 40cc in past 24 hrs,predominantly gas/air Existing 10 Fr mini loop drain in left adnexa - 0cc output in last 24 hrs Existing bilateral 10 Fr percutaneous nephrosotomy tubes Will consult IR regarding replacement of dressings around drains and PCNs, to evaluate for ? Air leak in right gluteal drain DVT ppx: Encourage ambulation, SCDs on and in place, lovenox Dispo: continue inpatient management Mare Cruz MD PGY4 [facility] DRY JANITOR Resident 10/29/2025 7:18 AM (p) [phone] Subjective Patient doing okay this morning, currently having pain but RN was giving pain medication. She was able to ambulate several times yesterday. Voiding without issue since petty was removed. Tolerating low residue diet without nausea/vomiting. Denies chest pain, shortness of breath. Objective Physical exam Last Vitals: Vitals: 10/29/25 0353 BP: Pulse: 67 Resp: 18 Temp: 96.9 ??F (36.1 ??C) SpO2: 98% Weight: Height: Intake/Output Summary (Last 24 hours) at 10/29/2025 0718 Last data filed at 10/29/2025 0353 Gross per 24 hour Intake 1810 ml Output 2825 ml Net -1015 ml Gen: No apparent distress, alert and oriented Pulm: No increased work of breathing Abd: Soft, appropriately tender, non-distended, no rebound or guarding; ostomy with small amount ofgas and stool Incisions: Clean and intact with surgical glue with small amount of weeping inferior to umbilicus. No surrounding erythema, induration, drainage; large amount of gas in right transgluteal drain; serosanguinous output in two other drains; PCNs with lightly blood tinged urine Ext: calves equal and nontender, SCDs in place Labs: Recent Results (from the past 24 hours) POCT Glucose, Fingerstick Collection Time: 10/28/25 8:33 AM Specimen: Blood Result Value Ref Range POC Glucose 144 (H) 65 - 99 mg/dL POCT Glucose, Fingerstick Collection Time: 10/28/25 12:17 PM Specimen: Blood Result Value Ref Range POC Glucose 185 (H) 65 - 99 mg/dL Prepare RBC's:Prepare in: Units; Number of Units: 1; Transfusion Indications: Hemoglobin greater than 7 gm/dl or HCT greater than 21% but Acute blood loss greater than 500 ml and symptoms not corrected by volume Collection Time: 10/28/25 1:02 PM Result Value Ref Range Units Ordered 1 POCT Glucose, Fingerstick Collection Time: 10/28/25 4:37 PM Specimen: Blood Result Value Ref Range POC Glucose 176 (H) 65 - 99 mg/dL POCT Glucose, Fingerstick Collection Time: 10/28/25 9:06 PM Specimen: Blood Result Value Ref Range POC Glucose 198 (H) 65 - 99 mg/dL POCT Glucose, Fingerstick Collection Time: 10/29/25 12:52 AM Specimen: Blood Result Value Ref Range POC Glucose 151 (H) 65 - 99 mg/dL POCT Glucose, Fingerstick Collection Time: 10/29/25 3:56 AM Specimen: Blood Result Value Ref Range POC Glucose 136 (H) 65 - 99 mg/dL Cosigned by Tisha Shah MD at 10/29/2025 11:08 AM EST Associated attestation - Tisha Shah MD - 10/29/2025 11:08 AM EST Teaching Physician Attestation Level of Participation I have personally interviewed and examined the patient and reviewed Dr. Cruz's note. I agree with the history, exam, assessment and plan as detailed in the resident/fellow's note with the following additions/exceptions/observations:Will get drain study of the presacral and initial L adnexa drain. The juan placed intraoperatively should be in the same area as the initial L adnexal drain. If no residual collection around the 2 prior drains could consider pulling and just leaving in the Juan. There is an area approx 4cm in length below the umbilicus in the incision with purulent drainage between the humza. Will return to open and pack that area. Otherwise continue current plan. Will need case managmenet to help with determining coverage for home abx (will need 4 weeks from OR) vs need for STR. * Noe Masters DO - 10/29/2025 5:15 AM EST Daily General Surgery Progress Note Hospital Day: 8 Principal Problem: Sepsis (HCC) (POA: Unknown) Active Problems: Type 2 diabetes mellitus (HCC) (POA: Yes) Schizophrenia (HCC) (POA: Yes) Postoperative hypothyroidism (POA: Yes) Obstructive sleep apnea syndrome (POA: Yes) Gastroesophageal reflux disease (POA: Yes) Hyperlipidemia (POA: Yes) Hypertension (POA: Yes) Chronic obstructive lung disease (HCC) (POA: Yes) Bipolar disorder (HCC) (POA: Yes) Tubo-ovarian abscess (POA: Unknown) Urinary tract infection (POA: Unknown) MADELINE (acute kidney injury) (POA: Unknown) Anemia (POA: Unknown) Hypocalcemia (POA: Unknown) Hypokalemia (POA: Unknown) High anion gap metabolic acidosis (POA: Unknown) Ureteral obstruction (POA: Yes) Resolved Problems: Assessment & Plan Assessment: Sis Valdez is a 55 y.o. 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 Patient tolerating diet without n/v and ostomy with flatus/BM. Plan(s): - Ostomy teaching when appropriate - Diet: as tolerated - Nausea and pain control - Abx: Unasyn (EOT: tbd) - Encourage OOB / ambulation - Appreciate care per IM, ID, and BENDER MACHINE Please contact [facility] with any questions VTE Time Out Caprini SCORE: 7 (10/25/2025 9:06 PM) Interpretation - High Risk Chemical Prophylaxis enoxaparin (LOVENOX) syringe 40 mg Subcutaneous Every 24 hours scheduled Heparin Sodium (Porcine), Heparin Sodium (Porcine), Heparin Sodium (Porcine) 5000 Units Last dose 10/28/2025 3:58 AM Enoxaparin Sodium 40 mg Last dose 10/28/2025 10:01 AM Mechanical Prophylaxis SCDs are ordered - Bilateral (Knee High) Subjective No acute events overnight. Ostomy teaching was attempted, however patient was confused. She is intermittently confused but has been noted to be Aox3 by nursing. No n/v, tolerating diet and having flatus/BM into ostomy bag Objective Last Vitals Pulse:67,Resp:18,BP:130/60,SpO2:98 %,Weight:96.6 kg (212 lb 15.4 oz) Temp Last 24 hrs: Temp Min: 96.9 ??F (36.1 ??C) Max: 97.7 ??F (36.5 ??C) Last temp: 96.9 ??F (36.1 ??C) (Tympanic) Diet Diabetic/ Calorie Controlled; Carb Counting 60g/meal 8327-6176 kcal; Low Fiber/ Low Residue Date 10/28/25 07 - 10/29/25 0659 10/29/25 0700 - 10/30/25 0659 Shift 8896-0642 9788-4755 9673-6302 24 Hour Total 9847-4363 3562-7310 2801-9814 24 Hour Total INTAKE P.O. 510 510 I.V.(mL/kg) 1010(10.5) 40(0.4) 1050(10.9) IV Piggyback 150 100 250 Shift Total(mL/kg) 510(5.3) 1160(12) 140(1.4) 1810(18.7) OUTPUT Urine(mL/kg/hr) 730(0.9) 1055(1.4) 600 2385 Other 50 80 160 290 Stool 50 100 150 Shift Total(mL/kg) 830(8.6) 1235(12.8) 760(7.9) 2825(29.2) Weight (kg) 96.6 96.6 96.6 96.6 96.6 96.6 96.6 96.6 Physical Exam General appearance: NAD, AOx3. Cardiovascular: RRR Pulmonary: normal air movement, on RA Abdomen: Soft, non-distended, non-tender. Ostomy site is appropriate and has BM in bag Extremities: No edema Labs: White Blood Cell Count Date Value Ref Range Status 10/28/2025 31.4 (HH) 4.0 - 11.0 Thou/uL Final Comment: Recurring Critical Result. Previously phoned. Hemoglobin, I-STAT Date Value Ref Range Status 10/25/2025 9.9 (L) 11.7 - 15.7 gm/dL Final Hemoglobin Date Value Ref Range Status 10/28/2025 7.1 (L) 11.7 - 15.7 g/dL Final Hematocrit, I-STAT Date Value Ref Range Status 10/25/2025 29.0 (L) 35.0 - 47.0 % Final Hematocrit Date Value Ref Range Status 10/28/2025 22.0 (L) 35.0 - 47.0 % Final Platelet Count Date Value Ref Range Status 10/28/2025 402 150 - 450 Thou/uL Final Lab Results Component Value Date NA 143 10/28/2025 NA 145 10/25/2025 K 3.3 (L) 10/28/2025 K 4.0 10/25/2025 CL 108 (H) 10/28/2025 CO2 26 10/28/2025 CO2 25 10/25/2025 BUN 6 (L) 10/28/2025 CREAT 1.08 10/28/2025 GLUC 136 (H) 10/29/2025 GLUC 125 (H) 10/28/2025 GLUC 146 (H) 10/25/2025 Lab Results Component Value Date CALCIUM 7.3 (L) 10/28/2025 MG 1.3 (L) 10/28/2025 PHOS 1.9 (L) 10/28/2025 Lab Results Component Value Date AST 56 (H) 10/22/2025 ALT 28 10/22/2025 ALKPHOS 125 (H) 10/22/2025 BILITOT 0.3 10/22/2025 ALBUMIN 3.5 10/22/2025 PROT 7.2 10/22/2025 Lab Results Component Value Date LIPASE 32 10/22/2025 Lab Results Component Value Date PTT 26 10/22/2025 LABPROT 15.0 (H) 10/22/2025 INR 1.3 10/22/2025 Imaging Studies No results found. Noe Masters, DO Anesthesiology Residency PGY-1 [facility] Available on [employer] Text & Epic Chat * Brandi Clifford MD - 10/28/2025 11:11 AM EST HOSPITAL MEDICINE PROGRESS NOTE Assessment & Plan Principal Problem: Sepsis (HCC) (POA: Unknown) Active Problems: Type 2 diabetes mellitus (HCC) (POA: Yes) Schizophrenia (HCC) (POA: Yes) Postoperative hypothyroidism (POA: Yes) Obstructive sleep apnea syndrome (POA: Yes) Gastroesophageal reflux disease (POA: Yes) Hyperlipidemia (POA: Yes) Hypertension (POA: Yes) Chronic obstructive lung disease (HCC) (POA: Yes) Bipolar disorder (HCC) (POA: Yes) Tubo-ovarian abscess (POA: Unknown) Urinary tract infection (POA: Unknown) MADELINE (acute kidney injury) (POA: Unknown) Anemia (POA: Unknown) Hypocalcemia (POA: Unknown) Hypokalemia (POA: Unknown) High anion gap metabolic acidosis (POA: Unknown) Ureteral obstruction (POA: Yes) Resolved Problems: Brief Summary 55 year old female with past medical history of hypertension, hyperlipidemia, type 2 diabetes, COPD, DANIEL, schizophrenia, bipolar disorder, history of papillary thyroid carcinoma s/p thyroidectomy, history of NSCLC s/p resection admitted for sepsis with known tubo-ovarian abscess and MADELINE with hydronephrosis. She had bilateral nephrostomy tubes and 2 abdominal/pelvic drains places on 10/23. She hadan exploratory laparotomy, abdominal washout, colostomy, and flexible sigmoidoscopy on 10/25. She developed AMS post op 10/25 for which Medicine consulted Assessment and plan: Acute delirium - resolved Likely post operative in the setting of infection Recent B12 noted normal, Ammonia levels unremarkable Home psych meds-Haldol 2.5 mg twice daily, Wellbutrin 300 mg daily, Abilify 20 mg daily were resumed Mentation has improved, she has been off restraints. COIN to be removed today Tubo ovarian abscess UTI S/p Pelvic and left adnexal drain placement 10/23. Cx with E coli and Strep constellatus Urine cultures from nephrostomy tubes 10/23 NGTD S/p Ex Lap, abd washout, colostomy, flex sig 10/25 ID following, currently on Unasyn, will be on abx until abscess resolution anticipated 4 weeks fromOR date. K and Mg levels low, being replaced today Diet is being advanced as tolerated Follow up CT in 2 weeks per ID Acute kidney injury, resolved Creatinine was 4.59 on admission, baseline around 1-1.3 Patient had severe bilateral hydronephrosis, urology following. S/p bilateral nephrostomy tubes on 10/23 She was previously on IV fluids, creatinine levels noted normal today. Hypernatremia also resolved. DM 2, A1c at 9% On metformin, Ozempic and glipizide at home - on hold as inpatient. Currently on SSI, hypoglycemia protocol in place Continue carb consistent diet Normocytic anemia Hemoglobin was 7 on presentation, B12 unremarkable Iron panel consistent with anemia of chronic disease Hemoglobin repeat yesterday noted at 6.4, s/p 1 unit PRBC transfusion. Hemoglobin levels noted at 7.5> 7.1 Recheck H&H, transfuse for levels below 7. Bipolar disorder Schizophrenia Home meds: BuSpar, Abilify, Haldol resumed. History of papillary thyroid carcinoma s/p thyroidectomy 2020 Patient on levothyroxine 200 mcg daily at home, started on IV given elevated TSH due to pt being NPO. TSH elevated at 14.40, fT4 low at 0.71. Follow-up TSH at 31.50. Given she is started on diet, switched to PO, Will increase home dose of levothyroxine to 250 mcg daily. Repeat TSH in 6 weeks and outpatient follow up. COPD/asthma History of NSCLC, s/p resection of LLL 02/2025 DANIEL On 2 L oxygen at home nightly Continue home Singulair and as needed albuterol GERD Continue PPI Thank you for involving us in the care of this patient, Internal medicine will sign off. Please reconsult as needed Quality Metrics DVT PROPHYLAXIS Risk Assessment Scores and Dates: VTE Time Out Caprini SCORE: 7 (10/25/2025 9:06 PM) Interpretation - High Risk Chemical Prophylaxis enoxaparin (LOVENOX) syringe 40 mg Subcutaneous Every 24 hours scheduled Heparin Sodium (Porcine), Heparin (Porcine) in NaCl, Heparin Sodium (Porcine) 5000 Units Last dose 10/25/2025 4:10 PM Heparin Sodium (Porcine) 5000 Units Last dose 10/28/2025 3:58 AM Enoxaparin Sodium 40 mg Last dose 10/28/2025 10:01 AM Mechanical Prophylaxis SCDs are ordered - Bilateral (Knee High) Antibiotic Stewardship (Disclaimer : absence of data in section implies that patient is not on any antibiotics). ANTIBIOTIC TIME OUT Current antibiotic/day of therapy: Anti-infectives (From admission, onward) Start Dose/Rate Route Frequency Ordered Stop 10/26/25 1800 ampicillin-sulbactam (UNASYN) 3 g in sodium chloride-MBP (NS) 100 mL IVPB-MBP 3 g 100 mL/hr over 60 Minutes Intravenous Every 6 hours 10/26/25 1420 Expected Date of Discharge 11/01/2025 Subjective Chief complaint Chief Complaint Patient presents with Abnormal Test Result Patient is being seen for acute medical problems and follow-up for chronic medical issues as mentioned in the assessment and plan above. Overnight Events/Patient Discussion: Patient seen and examined at bedside, Mentation has improved. She is reporting pain/discomfort in her lower abd. Patient received 1 unit PRBC blood transfusion overnight. Objective Vitals: 10/27/25 1629 10/27/25 1938 10/27/25 2040 10/27/25 2330 BP: (!) 144/66 (!) 142/68 (!) 116/58 Pulse: 74 76 75 Resp: 18 18 Temp: 98.8 ??F (37.1 ??C) 98.1 ??F (36.7 ??C) SpO2: 98% 98% 99% 10/28/25 0317 10/28/25 0822 10/28/25 1027 10/28/25 1051 BP: 128/60 120/70 122/60 Pulse: 73 64 66 Resp: 18 18 18 Temp: 98.4 ??F (36.9 ??C) 97.7 ??F (36.5 ??C) 97.1 ??F (36.2 ??C) SpO2: 99% 99% 95% 96% Physical Exam Vitals reviewed. Constitutional: General: She is not in acute distress. Appearance: Normal appearance. She is obese. HENT: Head: Normocephalic and atraumatic. Nose: Nose normal. Mouth/Throat: Mouth: Mucous membranes are moist. Cardiovascular: Rate and Rhythm: Normal rate. Pulses: Normal pulses. Pulmonary: Effort: Pulmonary effort is normal. Breath sounds: Normal breath sounds. Abdominal: Palpations: Abdomen is soft. Comments: Ostomy bag without any blood,. Abd drain in place Musculoskeletal: Cervical back: Normal range of motion. Skin: General: Skin is warm and dry. Neurological: Mental Status: She is alert and oriented to person, place, and time. Psychiatric: Mood and Affect: Mood normal. Behavior: Behavior normal. Relevant data reviewed Results from last 7 days Lab Units 10/28/25 0648 WHITE BLOOD CELL COUNT Thou/uL 31.4* HEMOGLOBIN g/dL 7.1* HEMATOCRIT % 22.0* PLATELET COUNT Thou/uL 402 Results from last 7 days Lab Units 10/28/25 0833 10/28/25 0648 SODIUM mmol/L -- 143 POTASSIUM mmol/L -- 3.3* CHLORIDE mmol/L -- 108* CO2 mmol/L -- 26 BUN mg/dL -- 6* CREATININE mg/dL -- 1.08 EGFR -- 61 GLUCOSE mg/dL -- 125* GLUCOSE, POC mg/dL 144* -- CALCIUM mg/dL -- 7.3* Sign Brandi Clifford MD 10/28/2025 11:11 AM * Jenny Sanches MD - 10/28/2025 9:11 AM EST Images from the original note were not included. ON LICENSE OF [facility] ID Progress Note Name: Sis Valdez Age: 55 y.o. Sex: female ASSESSMENT & PLAN Sis Valdez is a 55 year-old female with history of DM, DANIEL, thyroid cancer s/p resection, lung cancer s/p resection, recurrent uterine bleeding who was transferred from [facility] for escalation of care in the setting of tubo- ovarian abscess, acute renal failure and shock She was recently admitted to [facility] 10/01-10/08 due to TOA and MADELINE. She underwent IR drainage but no drain was left in. Culture from IR drainage was negative. She was givem meropenem in thebeginning and was discharged on Amox- clav and Flagyl. She was off treatment for 10 days. Assessment: 1) Tubo-ovarian abscess 2) Rectal fistula 3) Bilateral severe hydroureteronephrosis s/p PCN placement, improved 4) MADELINE - s/p exploratory laparotomy, abdominal washout, drainage of pelvic abscess on 10/25. A pinpoint rectal fistula was found on flexible sigmoidoscopy. 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 There is no Actinomyces growth noted from the culture from 10/23 after 5 days. No OR cultures were sent on 10/25. Plan: Continue IV Unasyn 3g q6hr. Would plan to follow up CT in 2 weeks She will be on antibiotics until abscess resolution, anticipating 4 weeks from the OR date Monitor WBC ANTIBIOTIC TIME OUT Current antibiotic/day of therapy: Anti-infectives (From admission, onward) Start Dose/Rate Route Frequency Ordered Stop 10/26/25 1800 ampicillin-sulbactam (UNASYN) 3 g in sodium chloride-MBP (NS) 100 mL IVPB-MBP 3 g 100 mL/hr over 60 Minutes Intravenous Every 6 hours 10/26/25 1420 SUBJECTIVE NAEO. She is virtually monitored. Denies feeling confused and is coherent during conversation with me. Abdominal pain seems to be controlled OBJECTIVE Physical Examination: Vitals: 10/28/25 1751 BP: 138/68 Pulse: 73 Resp: Temp: 97.3 ??F (36.3 ??C) SpO2: 97% Weight: Height: General appearance - awake, NAD HEENT - EOMI Chest - clear to auscultation Heart - RRR, no M/R/G Abdomen -soft, distended, multiple abscess drains (RLQ, LLQ, transgluteal), 2 PCNs, colostomy bag in place SKIN- No rash or ulcer Neuro- AOx3 LABORATORY AND DIAGNOSTIC DATA: Lab and imaging data were reviewed by me -[place] cultures 10[place]22 [place] [place] NGTD -Urine cultures 10/22 ([facility] [place] >100,000 GNR -C. Diff negative HH -Blood cultures 10/22: NGTD -MRSA Nares negative Results from last 7 days Lab Units 10/28/25 0648 10/28/25 0616 10/27/25 1317 10/27/25 0754 WHITE BLOOD CELL COUNT Thou/uL 31.4* 32.3* -- 33.9* HEMOGLOBIN g/dL 7.1* 7.5* 6.4* 6.5* HEMATOCRIT % 22.0* 23.9* 21.0* 20.8* PLATELET COUNT Thou/uL 402 450 -- 452* Results from last 7 days Lab Units 10/28/25 1637 10/28/25 1217 10/28/25 0833 10/28/25 0648 10/27/25 1149 10/27/25 0754 10/26/25 0520 10/26/25 0357 10/23/25 0246 10/22/25 1818 SODIUM mmol/L -- -- -- 143 -- 149* -- 145 < > 135* SODIUM, ISTAT -- -- -- -- -- -- -- -- < > -- POTASSIUM, ISTAT -- -- -- -- -- -- -- -- < > -- POTASSIUM mmol/L -- -- -- 3.3* -- 3.4 -- 4.1 < > 3.2* CHLORIDE mmol/L -- -- -- 108* -- 113* -- 111* < > 96* CO2 mmol/L -- -- -- 26 -- 23 -- 22 < > 20* TCO2 ART CALC, I-STAT -- -- -- -- -- -- -- -- < > -- BUN mg/dL -- -- -- 6* -- 9 -- 15 < > 45* CREATININE mg/dL -- -- -- 1.08 -- 1.26* -- 1.30* < > 3.83* CALCIUM mg/dL -- -- -- 7.3* -- 8.0* -- 8.4* < > 7.8* GLUCOSE, ISTAT -- -- -- -- -- -- -- -- < > -- GLUCOSE mg/dL -- -- -- 125* -- 126* -- 171* < > 85 GLUCOSE, POC mg/dL 176* 185* 144* -- < > -- < > -- < > -- EGFR -- -- -- 61 -- 51* -- 49* < > 13* ALBUMIN g/dL -- -- -- -- -- -- -- -- -- 3.5 PROTEIN, TOTAL g/dL -- -- -- -- -- -- -- -- -- 7.2 BILIRUBIN TOTAL mg/dL -- -- -- -- -- -- -- -- -- 0.3 ALK PHOS U/L -- -- -- -- -- -- -- -- -- 125* ALT U/L -- -- -- -- -- -- -- -- -- 28 AST U/L -- -- -- -- -- -- -- -- -- 56* < > = values in this interval not displayed. Lab Results Component Value Date ALT 28 10/22/2025 AST 56 (H) 10/22/2025 ALKPHOS 125 (H) 10/22/2025 BILITOT 0.3 10/22/2025 Results from last 7 days Lab Units 10/22/25 1818 PROTHROMBIN TIME (PT) seconds 15.0* APTT seconds 26 INR 1.3 proBNP, N-terminal Date Value Ref Range Status 10/23/2025 1,039 (H) <125 pg/mL Final No results found for: SEDRATE No results found for: CRP Blood Cultures: Lab Results Component Value Date CULTURE 10/23/2025 No aerobes isolated after 3 days and no anaerobes isolated after 5 days. Urine Cultures: Lab Results Component Value Date HYALNCSTUA Present 10/22/2025 BILIUA Negative 10/22/2025 BLOODUA Small (A) 10/22/2025 CLARITYUA Cloudy 10/22/2025 COLORUA Yellow 10/22/2025 KETONESUA Negative 10/22/2025 LEUKOCYTESUA Moderate (A) 10/22/2025 NITRITEUA Negative 10/22/2025 PHUA 5.0 10/22/2025 PROTEINUA Trace (A) 10/22/2025 RBCUA 1 10/22/2025 SPECGRAVUA 1.010 10/22/2025 WBCUA >25 (H) 10/22/2025 OTHER MICROBIOLOGY: C. Difficile: No results found for: CDIFFTOX , NAP1 Imaging Studies XR Abdomen 1 view-Portable Result Date: 10/25/2025 EXAMINATION: XR ABDOMEN KUB CLINICAL INDICATION: incorrect count COMPARISON: None available. TECHNIQUE: AP view of the abdomen. FINDINGS: There is a surgical probe overlying the pelvis/vagina. Bilateral nephrostomy tube catheters are noted. 3 pelvic surgical drains are noted. Surgical probe overlying the pelvis/vagina, please remove and repeat films. Report communicated intraoperatively to Dr. Alicia at 8:[address] Abdomen+pelvis w/contrast Result Date: 10/25/2025 EXAMINATION: CT ABDOMEN AND PELVIS WITH CONTRAST CLINICAL INFORMATION: Concern for bowel perforation COMPARISON: 10/22/2025 TECHNIQUE: Contiguous axial images were obtained through the abdomen and pelvis after administration of contrast 60 mL of Omnipaque 350. Coronal and sagittal reformations wereperformed. Oral contrast was not administered. Iodinated contrast, diluted in 1-10 solution was injected directly into the drains. 10 mL of contrast was evidently injected into the left lower quadrant drain which elucidated pain. 20 mL of contrast solution was injected into the right transgluteal drain. Following the first and an additional 50 mL of dilute contrast solution was injected into the perirectal drain and a secondary CT of the pelvis only was performed. This CT examination was performed using dose optimization techniques as appropriate, variously including the following: *Automatedexposure control *Adjustment of mA and/or kV according to patient size (this includes techniques orstandardized protocols for targeted exams where dose is matched to indication/reason for exam; i.e. extremities or head) *Use of iterative reconstruction technique DLP: 630.46 mGy- cm, followed by 540.17 mGy-cm FINDINGS: LUNG BASES: The visualized lung bases are clear. LIVER: Homogeneous in attenuation. Normal in size. No focal lesion. GALLBLADDER: Status post cholecystectomy with surgical clips in the gallbladder fossa. BILIARY SYSTEM: No intrahepatic or extrahepatic biliary ductal dilation. PANCREAS: Homogeneous in attenuation. No pancreatic ductal dilatation. No focal lesion. SPLEEN: Upper limits of normal in size measuring 12 cm in the longest dimension. ADRENAL GLANDS: No focal nodule. KIDNEYS/BLADDER: Bilateral kidneys demonstrate symmetric enhancement. Bilateral nephrostomy tubes inplace with pigtails in the renal pelvis. Interval resolution of severe bilateral hydroureteronephrosis. GASTROINTESTINAL: Redemonstration of inflammatory changes along the distal sigmoid and rectum. In the proximal rectum there is fistulous communication with the adjacent abscess cavity best delineated on sagittal views (series 602 image 76 and 77). APPENDIX: The appendix is seen in its entirety a nd is unremarkable. PERITONEUM: No pneumoperitoneum. No ascites. No intra- abdominal fluid collection. LYMPH NODES: No pathologically enlarged abdominal or pelvic lymph nodes. PELVIC STRUCTURES: Redemonstration of right adnexal abscess, confirmed pyosalpinx with interval decrease size status post left lower quadrant approach small pigtail catheter placement.. The structure now measures 6.2 x 4.6 x4.5 cm , previously 10.9 x 4.9 x 6.6 cm. Medially adjacent to this is a pocket of air filled collection that is continuous with the perirectal abscess. The perirectal abscess is status post right transgluteal pigtail catheter placement and measures measures 9.6 x 4.1 x 5.7 cm (series 602 image 74).This abscess shows a fistulous communication with the adjacent rectum as described above. SOFT TISSUES: No significant hernia visualized. MUSCULOSKELETAL: Multilevel degenerative changes of the spine. 1. Redemonstration of right adnexal abscess, confirmed pyosalpinx with interval decrease size status post left lower quadrant approach small pigtail catheter placement. 2. Air and fluid-filled perirectal abscess is status post right transgluteal pigtail catheter placement and measures 9.6 x 4.1 x 5.7 cm This abscess shows a fistulous communication with the adjacent rectum. 3. Bilateral nephrostomy tubes in place with pigtails in the renal pelvis. Interval resolution of severe bilateral hydroureteronephrosis. Findings communicated with general surgery team at the time of the scan. Fleischner guidelines were followed. Current Medications: Current Medications[1] ALLERGIES: Allergies[2] > 35 min spent reviewing records, evaluating the patient, and formulating a plan of care Of note, some information is being carried forward from prior records for informational purposes only and is being cited so that efficiency, safety and quality of this patient's care is not compromised Sign Jenny Sanches MD [facility] Available via [employer] 10/28/2025 7:06 PM [1] Current Facility-Administered Medications Medication Dose Route Frequency Provider Last Rate Last Admin albuterol (PROVENTIL HFA; VENTOLIN HFA) inhaler 2 puff 2 puff Inhalation Q4H PRN Kelly Pérez MD ampicillin-sulbactam (UNASYN) 3 g in sodium chloride-MBP (NS) 100 mL IVPB-MBP 3 g Intravenous Q6H Jenny Sanches MD Stopped at 10/28/25 1904 ARIPiprazole (ABILIFY) tablet 20 mg 20 mg Oral Daily Mare Cruz MD 20 mg at 10/28/25 1000 [Provider Held] ascorbic acid (VITAMIN C) tablet 250 mg 250 mg Oral Daily Roberto Freedman MD 250 mg at 10/25/25 1018 [Provider Held] aspirin enteric coated (ECOTRIN LOW STRENGTH) tablet 81 mg 81 mg Oral Nightly Roberto Freedman MD atorvastatin (LIPITOR) tablet 40 mg 40 mg Oral Nightly Mare Cruz MD 40 mg at 10/27/25 2101 [Provider Held] baclofen (LIORESAL) tablet 10 mg 10 mg Oral TID Kelly Pérez MD 10 mg at 10/25/25 1403 buPROPion (WELLBUTRIN XL) 24 hr tablet 300 mg 300 mg Oral QAM Mare Cruz MD 300 mg at 10/28/25 0622 chlorhexidine gluconate 2 % wipes - daily CHG application Topical Daily Cami Pike MD 1 each at 10/28/25 1016 clonazePAM (KlonoPIN) tablet 1 mg 1 mg Oral Q12H PRN Mare Cruz MD 1 mg at 10/28/25 1600 glucose (GLUTOSE 15) 40 % oral gel 37.5 g 1 Tube Oral Q15 Min PRN Roberto Freedman MD Or glucose (GLUTOSE 15) 40 % oral gel 75 g 2 Tube Oral Q15 Min PRN Roberto Freedman MD Or dextrose 50 % solution 12.5 g 12.5 g Intravenous Q15 Min PRN Roberto Freedman MD 12.5 g at 10/23/25 1748 Or dextrose 50 % solution 25 g 25 g Intravenous Q15 Min PRN Roberto Freedman MD Or glucagon (GLUCAGEN) injection 1 mg 1 mg Intramuscular Daily PRN Roberto Freedman MD diclofenac (VOLTAREN) 1 % gel 2 g 2 g Topical 4x Daily Roberto Freedman MD 2 g at 10/24/25 0826 [Provider Held] docusate sodium (COLACE) capsule 100 mg 100 mg Oral BID Roberto Freedman MD 100 mg at 10/25/25 1018 enoxaparin (LOVENOX) syringe 40 mg 40 mg Subcutaneous Q24H [facility] Noe Masters DO 40 mg at [Provider Held] ferrous sulfate EC tablet 325 mg 325 mg Oral Daily Roberto Freedman MD 325 mg at112/26/24 1018 [Provider Held] gabapentin (NEURONTIN) capsule 300 mg 300 mg Oral TID Kelly Pérez MD 300 mg at 10/25/25 1417 haloperidol (HALDOL) tablet 2.5 mg 2.5 mg Oral BID Mare Cruz MD 2.5 mg at 10/28/25 1000 HYDROmorphone (DILAUDID) injection 0.5 mg 0.5 mg Intravenous Q3H PRN Kelly Pérez MD 0.5 mg at 10/28/25 1609 HYDROmorphone (DILAUDID) injection 0.8 mg 0.8 mg Intravenous Q3H PRN Kelly Pérez MD 0.8 mg at 10/27/25 1551 HYDROmorphone (DILAUDID) injection 1 mg 1 mg Intravenous Q3H PRN Kelly Pérez MD 1 mg at 10/28/25 0358 [Provider Held] hydrOXYzine HCl (ATARAX) tablet 50 mg 50 mg Oral Q6H PRN Roberto Freedman MD insulin lispro (HumaLOG/ADMELOG) 100 units/mL injection 1-5 Units 1-5 Units Subcutaneous Q4H [facility] Roberto Freedman MD 1 Units at 10/28/25 1701 [START ON 10/29/2025] levothyroxine (SYNTHROID, LEVOTHROID) tablet 250 mcg 250 mcg Oral Daily 6AM Brandi Clifford MD [Provider Held] lisinopril (PRINIVIL,ZeSTRIL) tablet 2.5 mg 2.5 mg Oral Daily Roberto Freedman MD [Provider Held] loratadine (CLARITIN) tablet 10 mg 10 mg Oral QAM Roberto Freedman MD melatonin tablet 3 mg 3 mg Oral Nightly Kelly Pérez MD montelukast (SINGULAIR) tablet 10 mg 10 mg Oral Nightly Mare Cruz MD 10 mg at 10/27/252058 naloxone (NARCAN) 0.4 mg/mL injection 0.4 mg 0.4 mg Intravenous Q5 Min PRN Kelly Pérez MD ondansetron (ZOFRAN) injection 4 mg 4 mg Intravenous Q6H PRN Kelly Pérez MD [Provider Held] oxyCODONE (ROXICODONE) immediate release tablet 10 mg 10 mg Oral Q3H PRN Kelly Pérez MD [Provider Held] oxyCODONE (ROXICODONE) immediate release tablet 5 mg 5 mg Oral Q3H PRN Kelly Pérez MD 5 mg at 10/26/25 0947 PANTOprazole (PROTONIX) EC tablet 40 mg 40 mg Oral Daily Mare Cruz MD 40 mg at 10/28/25 1001 simethicone (MYLICON) chewable tablet 80 mg 80 mg Oral Q6H PRN Kelly Pérez MD sucralfate (CARAFATE) tablet 1 g 1 g Oral 4x daily Mare Cruz MD 1 g at 10/28/25 1804 [2] No Known Allergies * Jorge Luis Hayes MD - 10/28/2025 7:40 AM EST General Surgery Progress Note Assessment & Plan Assessment: Sis Valdez is a 55 y.o. 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 Patient tolerating CLD with bowel function. Recommend advancing diet as tolerated. Would recommend repeat CBC to evaluate response to prbc. Will plan for ostomy teaching as tolerated. Plan(s): - Appreciate care per primary team - Ostomy teaching - Recheck h/h s/p transfusion - Diet as tolerated - Please contact RED surgery with any questions VTE Time Out Rajivi SCORE: 7 (10/25/2025 9:06 PM) Interpretation - High Risk Chemical Prophylaxis heparin (porcine) 5000 unit/mL injection 5,000 Units Subcutaneous Every 8 hours scheduled Heparin Sodium (Porcine), Heparin (Porcine) in NaCl, Heparin Sodium (Porcine) 5000 Units Last dose 54:10 PM Heparin Sodium (Porcine) 5000 Units Last dose 10/28/2025 3:58 AM Mechanical Prophylaxis SCDs are ordered - Bilateral (Knee High) Subjective No acute events overnight. No nausea/vomiting. No shortness of breath this am. Tolerated CLD yesterday. Objective Last Vitals Pulse:73,Resp:18,BP:128/60,SpO2:99 %,Weight:96.6 kg (212 lb 15.4 oz) Temp Last 24 hrs: Temp Min: 97.4 ??F (36.3 ??C) Max: 99 ??F (37.2 ??C) Last temp: 98.4 ??F (36.9 ??C) (Tympanic) Diet Clear Liquid Date 10/27/25 07 - 10/28/25 0659 10/28/25 07 - 10/29/25 0659 Shift [id number] [id number] 5603-3569 24 Hour Total 0574-6419 7644-4507 4451-8848 24 Hour Total INTAKE P.O. 750 439 849 7001 I.V.(mL/kg) 10(0.1) 3(0) 13(0.1) Blood 286 286 Other 20 20 IV Piggyback 100 200 300 Shift Total(mL/kg) 760(7.9) 686(7.1) 923(9.6) 2369(24.5) OUTPUT Urine(mL/kg/hr) 510(0.7) 820(1.1) 650(0.8) 1980(0.9) Other 20 115 190 325 Stool 425 40 50 515 Shift Total(mL/kg) 955(9.9) 975(10.1) 890(9.2) 2820(29.2) Weight (kg) 96.6 96.6 96.6 96.6 96.6 96.6 96.6 96.6 Physical Exam Gen: Resting comfortably, NAD CVS: Regular heart rate Pulm: Normal respiratory effort on RA Abd: Soft, nontender, nondistended. Ostomy with stool and small amount of flatus. Incisions CDI. Skin: Warm and dry. Labs: White Blood Cell Count Date Value Ref Range Status 10/28/2025 31.4 (HH) 4.0 - 11.0 Thou/uL Final Comment: Recurring Critical Result. Previously phoned. Hemoglobin, I-STAT Date Value Ref Range Status 10/25/2025 9.9 (L) 11.7 - 15.7 gm/dL Final Hemoglobin Date Value Ref Range Status 10/28/2025 7.1 (L) 11.7 - 15.7 g/dL Final Hematocrit, I-STAT Date Value Ref Range Status 10/25/2025 29.0 (L) 35.0 - 47.0 % Final Hematocrit Date Value Ref Range Status 10/28/2025 22.0 (L) 35.0 - 47.0 % Final Platelet Count Date Value Ref Range Status 10/28/2025 402 150 - 450 Thou/uL Final Lab Results Component Value Date NA 149 (H) 10/27/2025 NA 145 10/25/2025 K 3.4 10/27/2025 K 4.0 10/25/2025 CL 113 (H) 10/27/2025 CO2 23 10/27/2025 CO2 25 10/25/2025 BUN 9 10/27/2025 CREAT 1.26 (H) 10/27/2025 GLUC 135 (H) 10/28/2025 GLUC 126 (H) 10/27/2025 GLUC 146 (H) 10/25/2025 Lab Results Component Value Date CALCIUM 8.0 (L) 10/27/2025 MG 1.6 10/27/2025 PHOS 2.4 (L) 10/27/2025 Lab Results Component Value Date AST 56 (H) 10/22/2025 ALT 28 10/22/2025 ALKPHOS 125 (H) 10/22/2025 BILITOT 0.3 10/22/2025 ALBUMIN 3.5 10/22/2025 PROT 7.2 10/22/2025 Lab Results Component Value Date LIPASE 32 10/22/2025 Lab Results Component Value Date PTT 26 10/22/2025 LABPROT 15.0 (H) 10/22/2025 INR 1.3 10/22/2025 Imaging Studies No results found. Other testing: N/A Signed Jorge Luis Hayes MD PGY-3, General Surgery 10/28/2025 7:40 AM * Mare Cruz MD - 10/28/2025 7:07 AM EST Gynecology Oncology Progress Note Assessment & Plan 55 y.o. admitted as a transfer from outside hospital due to worsening TOA status post IR guided placement of bilateral PCN and intra-abdominal drains now POD#3 s/p exploratory laparotomy, abdominal washout, loop colostomy and flex sigmoidoscopy for TOA, partial LBO, and rectal fistula. She is more oriented this morning and conversing appropriately. Plan Neuro: Home psych meds restarted Medicine following MMPR with IV Tylenol and Dilaudid PRN. Holding NSAIDs due to MADELINE. CV/Pulm: COPD on 2L NC at baseline Holding home crestor, ASA, lisinopril. Heme: Hgb 7.5 >> 6.4 > 1u pRBCs > AM CBC pending ID: Antibiotics transitioned from Zosyn to CTX/Flagyl per ID WBC 24.3 > 37.5 postoperatively > 33.9 GI: Clears Surgery following, appreciate recommendations : Petty in, bilateral PCNs in place. Strict I/Os Endocrine T2DM, FS/ISS Drains: New Juan drain placed in left adnexa abscess bed anterior to existing 10 Fr mini loop drain placedby IR on 10/23, exiting through right lower quadrant Existing 12 Fr drain placed in presacral abscess (right transgluteal) Existing 10 Fr mini loop drain in left adnexa Existing bilateral 10 Fr percutaneous nephrosotomy tubes DVT ppx: Encourage ambulation, SCDs on and in place, heparin Dispo: continue inpatient management Mare Cruz MD PGY4 [facility] Resident 10/28/2025 7:07 AM (p) [phone] Subjective Patient doing well this morning. Pain well controlled with pain medication. Has not yet ambulated. Petty catheter in place. Tolerating clear liquid diet without nausea/vomiting. Denies chest pain, shortness of breath, nausea, vomiting, calf tenderness. Objective Physical exam Last Vitals: Vitals: 10/28/25 0317 BP: 128/60 Pulse: 73 Resp: 18 Temp: 98.4 ??F (36.9 ??C) SpO2: 99% Weight: Height: Intake/Output Summary (Last 24 hours) at 10/28/2025 0707 Last data filed at 10/28/2025 0623 Gross per 24 hour Intake 2369 ml Output 2820 ml Net -451 ml Gen: No apparent distress, alert and oriented Pulm: No increased work of breathing Abd: Soft, appropriately tender, non-distended, no rebound or guarding; ostomy with gas; LLQ and RLQ drains with serosanguinous output; transgluteal drain with stool and gas; PCNs with blood tinged urine Incisions: Clean, dry, intact with humza in place. No surrounding erythema, induration or drainage Ext: calves equal and nontender, SCDs in place Labs: Recent Results (from the past 24 hours) Phosphorus Collection Time: 10/27/25 7:54 AM Specimen: Blood Result Value Ref Range Phosphorus 2.4 (L) 2.7 - 4.5 mg/dL Magnesium Collection Time: 10/27/25 7:54 AM Specimen: Blood Result Value Ref Range Magnesium 1.6 1.6 - 2.7 mg/dL COMPLETE BLOOD COUNT, WITHOUT DIFFERENTIAL Collection Time: 10/27/25 7:54 AM Specimen: Blood Result Value Ref Range White Blood Cell Count 33.9 (HH) 4.0 - 11.0 Thou/uL Platelet Count 452 (H) 150 - 450 Thou/uL Hemoglobin 6.5 (L) 11.7 - 15.7 g/dL Hematocrit 20.8 (L) 35.0 - 47.0 % Red Blood Cell Count 2.57 (L) 4.00 - 5.40 Mil/uL MCV 81 80 - 100 fL MCH 25.3 (L) 27.0 - 31.0 pg MCHC 31.3 30.0 - 36.0 g/dL RDW 16.8 (H) 11.5 - 14.5 % MPV 10.2 7.5 - 12.5 fL nRBC 0.1 0.0 - 0.1 /100 WBC nRBC, Absolute 0.02 0.00 - 0.02 Thou/uL Basic Metabolic Panel Collection Time: 10/27/25 7:54 AM Specimen: Blood Result Value Ref Range Glucose 126 (H) 65 - 99 mg/dL Blood Urea Nitrogen (BUN) 9 8 - 21 mg/dL Creatinine 1.26 (H) 0.40 - 1.10 mg/dL eGFR 51 (L) >59 Sodium 149 (H) 136 - 145 mmol/L Potassium 3.4 3.4 - 5.3 mmol/L Chloride 113 (H) 98 - 107 mmol/L CO2 23 22 - 33 mmol/L Anion Gap 13 7 - 17 Calcium 8.0 (L) 8.7 - 10.5 mg/dL BUN/Creatinine Ratio 7 (L) 10.0 - 25.0 Ratio Prepare RBC's:Prepare in: Units; Number of Units: 1; Transfusion Indications: Hemoglobin greater than 7 gm/dl or HCT greater than 21% but Acute blood loss greater than 500 ml and symptoms not corrected by volume, Hemoglobin less than 7 gm/dl or HC... Collection Time: 10/27/25 11:30 AM Result Value Ref Range Units Ordered 1 Type and Screen Collection Time: 10/27/25 11:41 AM Specimen: Blood Blood Result Value Ref Range ABO/Rh O NEGATIVE Antibody Screen NEGATIVE Specimen Expiration 10/30/2025 Unit Number [id number] Blood Component Type LR RBC CONTAINER 2 Unit Division 00 Unit Status ISSUED,FINAL Transfusion Status OK TO TRANSFUSE Crossmatch Result Electronically Compatible POCT Glucose, Fingerstick Collection Time: 10/27/25 11:49 AM Specimen: Blood Result Value Ref Range POC Glucose 177 (H) 65 - 99 mg/dL Hemoglobin and Hematocrit Collection Time: 10/27/25 1:17 PM Specimen: Blood Result Value Ref Range Hematocrit 21.0 (L) 35.0 - 47.0 % Hemoglobin 6.4 (L) 11.7 - 15.7 g/dL POCT Glucose, Fingerstick Collection Time: 10/27/25 5:11 PM Specimen: Blood Result Value Ref Range POC Glucose 195 (H) 65 - 99 mg/dL POCT Glucose, Fingerstick Collection Time: 10/27/25 8:48 PM Specimen: Blood Result Value Ref Range POC Glucose 122 (H) 65 - 99 mg/dL POCT Glucose, Fingerstick Collection Time: 10/28/25 1:01 AM Specimen: Blood Result Value Ref Range POC Glucose 128 (H) 65 - 99 mg/dL POCT Glucose, Fingerstick Collection Time: 10/28/25 5:48 AM Specimen: Blood Result Value Ref Range POC Glucose 135 (H) 65 - 99 mg/dL Cosigned by Eddie Alicia MD at 10/28/2025 10:40 PM EST Associated attestation - Eddie Alicia MD - 10/28/2025 10:40 PM EST Teaching Physician Attestation Level of Participation I have personally interviewed and examined the patient during 10/28 morning rounds with the team. Ireviewed Dr. Cruz's note. I agree with the history, exam, assessment and plan as detailed in the resident's note. - Will transfuse additional unit today - Mental status improving after resumption of psych meds - Appreciate colorectal surgery recs. Diet advanced to low fiber. Ostomy with gas and some output. - Discussed petty removal this afternoon with adequate ambulation. - Vertical midline incision with some separation and discharge along inferior portion. No pus. No surrounding erythema. - Drains: - RLQ surgical drain with serosanguinous output (90 ml/24 hours versus 200 ml day prior) - LLQ IR drain with minimal output compared to day prior - R gluteal drain still with feculent output but only 40 ml/24 hours compared to 70 ml prior - Will continue to monitor output and consider sinogram once output is minimal to assure adequate source control prior to pulling * Bharathi Amos MD - 10/27/2025 8:34 PM EST patient seen and evaluated earlier this evening. Pod 2 s/p flex sig findings rectal fistula and transgluteal drain communicating with rectal fistula, ex lap required drainage of left adnexa; pelvis hostile; anemic malnourished with urinary obstruction requiring perc neph tubes and intraop findings concerning for partial lbo now s/p loop colostomy creation for diversion. she is having some bowel function and tolerating clears. seems more awake this evening discussed intraop findings with patient * Jenny Sanches MD - 10/27/2025 4:31 PM EST Images from the original note were not included. ON LICENSE OF [facility] ID Progress Note Name: Sis Valdez Age: 55 y.o. Sex: female ASSESSMENT & PLAN Sis Valdez is a 55 year-old female with history of DM, DANIEL, thyroid cancer s/p resection, lung cancer s/p resection, recurrent uterine bleeding who was transferred from [facility] for escalation of care in the setting of tubo- ovarian abscess, acute renal failure and shock She was recently admitted to [facility] 10/01-10/08 due to TOA and MADELINE. She underwent IR drainage but no drain was left in. Culture from IR drainage was negative. She was givem meropenem in thebeginning and was discharged on Amox- clav and Flagyl. She was off treatment for 10 days. Assessment: 1) Tubo-ovarian abscess 2) Rectal fistula 3) Bilateral severe hydroureteronephrosis s/p PCN placement, improved 4) MADELINE - s/p exploratory laparotomy, abdominal washout, drainage of pelvic abscess on 10/25. A pinpoint rectal fistula was found on flexible sigmoidoscopy. No overt pus or stool on abdominal entry Frozen pelvis was noted with sigmoid colon morbidly adherent to bladder, uterus, bilateral adnexa, cecum & appendix adherent to right adnexa - she has drains to the left adnexa abscess (in RLQ), presacral abscess (right transgluteal), mini drain from the left adnexa abscess (in LLQ), bilateral nephrostomy tubes - Ovarian abscess culture grew E.coli and S.constellatus 10/23 Sacral abscess culture grew Enterococcus species (amp-S, pen-S), E.coli and S.constellatus. Plan: Continue IV Unasyn 3g q6hr. Clinically improving Would plan to follow up CT in 2 weeks She will be on antibiotics until abscess resolution, anticipating 4 weeks from the OR date Monitor WBC ANTIBIOTIC TIME OUT Current antibiotic/day of therapy: Anti-infectives (From admission, onward) Start Dose/Rate Route Frequency Ordered Stop 10/26/25 1800 ampicillin-sulbactam (UNASYN) 3 g in sodium chloride-MBP (NS) 100 mL IVPB-MBP 3 g 100 mL/hr over 60 Minutes Intravenous Every 6 hours 10/26/25 1420 SUBJECTIVE Aox4 today. Abdominal pain is controlled. OBJECTIVE Physical Examination: Vitals: 10/27/25 1456 BP: (!) 140/70 Pulse: 82 Resp: 18 Temp: 98.9 ??F (37.2 ??C) SpO2: 99% Weight: Height: General appearance - awake, NAD HEENT - EOMI Chest - clear to auscultation Heart - RRR, no M/R/G Abdomen -soft, distended, multiple abscess drains (RLQ, LLQ, transgluteal), 2 PCNs, colostomy bag in place Extremities - no cyanosis SKIN- No rash or ulcer Neuro- AOx3 LABORATORY AND DIAGNOSTIC DATA: Lab and imaging data were reviewed by ms -Blood cultures 10/22 [place] [place] NGTD -Urine cultures 10/22 ([facility] [place] >100,000 GNR -C. Diff negative HH -Blood cultures 10/22: NGTD -MRSA Nares negative Results from last 7 days Lab Units 10/27/25 1317 10/27/25 0754 10/26/25 0357 10/25/25 1747 10/25/25 0546 WHITE BLOOD CELL COUNT Thou/uL -- 33.9* 37.5* -- 24.3* HEMOGLOBIN, ISTAT -- -- -- < > -- HEMOGLOBIN g/dL 6.4* 6.5* 7.6* -- 7.8* HEMATOCRIT, ISTAT -- -- -- < > -- HEMATOCRIT % 21.0* 20.8* 23.1* -- 24.0* PLATELET COUNT Thou/uL -- 452* 465* -- 482* < > = values in this interval not displayed. Results from last 7 days Lab Units 10/27/25 1149 10/27/25 0754 10/27/25 0512 10/26/25 0520 10/26/25 0357 10/25/25 2112 10/25/25 1900 10/25/25 0842 10/25/25 0546 10/23/25 0246 10/22/25 1818 SODIUM mmol/L -- 149* -- -- 145 -- -- -- 141 < > 135* SODIUM, ISTAT mmol/L -- -- -- -- -- -- 145 < > -- -- -- POTASSIUM, ISTAT mmol/L -- -- -- -- -- -- 4.0 < > -- -- -- POTASSIUM mmol/L -- 3.4 -- -- 4.1 -- -- -- 3.3* < > 3.2* CHLORIDE mmol/L -- 113* -- -- 111* -- -- -- 106 < > 96* CO2 mmol/L -- 23 -- -- 22 -- -- -- 22 < > 20* TCO2 ART CALC, I-STAT mmol/L -- -- -- -- -- -- 25 < > -- -- -- BUN mg/dL -- 9 -- -- 15 -- -- -- 20 < > 45* CREATININE mg/dL -- 1.26* -- -- 1.30* -- -- -- 1.59* < > 3.83* CALCIUM mg/dL -- 8.0* -- -- 8.4* -- -- -- 8.7 < > 7.8* GLUCOSE, ISTAT mg/dL -- -- -- -- -- -- 146* < > -- -- -- GLUCOSE mg/dL -- 126* -- -- 171* -- -- -- 129* < > 85 GLUCOSE, POC mg/dL 177* -- 133* < > -- < > -- < > -- < > -- EGFR -- 51* -- -- 49* -- -- -- 39* < > 13* ALBUMIN g/dL -- -- -- -- -- -- -- -- -- -- 3.5 PROTEIN, TOTAL g/dL -- -- -- -- -- -- -- -- -- -- 7.2 BILIRUBIN TOTAL mg/dL -- -- -- -- -- -- -- -- -- -- 0.3 ALK PHOS U/L -- -- -- -- -- -- -- -- -- -- 125* ALT U/L -- -- -- -- -- -- -- -- -- -- 28 AST U/L -- -- -- -- -- -- -- -- -- -- 56* < > = values in this interval not displayed. Lab Results Component Value Date ALT 28 10/22/2025 AST 56 (H) 10/22/2025 ALKPHOS 125 (H) 10/22/2025 BILITOT 0.3 10/22/2025 Results from last 7 days Lab Units 10/22/25 1818 PROTHROMBIN TIME (PT) seconds 15.0* APTT seconds 26 INR 1.3 proBNP, N-terminal Date Value Ref Range Status 10/23/2025 1,039 (H) <125 pg/mL Final No results found for: SEDRATE No results found for: CRP Blood Cultures: Lab Results Component Value Date CULTURE Negative after 3 days 10/23/2025 Urine Cultures: Lab Results Component Value Date HYALNCSTUA Present 10/22/2025 BILIUA Negative 10/22/2025 BLOODUA Small (A) 10/22/2025 CLARITYUA Cloudy 10/22/2025 COLORUA Yellow 10/22/2025 KETONESUA Negative 10/22/2025 LEUKOCYTESUA Moderate (A) 10/22/2025 NITRITEUA Negative 10/22/2025 PHUA 5.0 10/22/2025 PROTEINUA Trace (A) 10/22/2025 RBCUA 1 10/22/2025 SPECGRAVUA 1.010 10/22/2025 WBCUA >25 (H) 10/22/2025 OTHER MICROBIOLOGY: C. Difficile: No results found for: CDIFFTOX , NAP1 Imaging Studies XR Abdomen 1 view-Portable Result Date: 10/25/2025 EXAMINATION: XR ABDOMEN KUB CLINICAL INDICATION: incorrect count COMPARISON: None available. TECHNIQUE: AP view of the abdomen. FINDINGS: There is a surgical probe overlying the pelvis/vagina. Bilateral nephrostomy tube catheters are noted. 3 pelvic surgical drains are noted. Surgical probe overlying the pelvis/vagina, please remove and repeat films. Report communicated intraoperatively to Dr. Alicia at 8:[address] Abdomen+pelvis w/contrast Result Date: 10/25/2025 EXAMINATION: CT ABDOMEN AND PELVIS WITH CONTRAST CLINICAL INFORMATION: Concern for bowel perforation COMPARISON: 10/22/2025 TECHNIQUE: Contiguous axial images were obtained through the abdomen and pelvis after administration of contrast 60 mL of Omnipaque 350. Coronal and sagittal reformations wereperformed. Oral contrast was not administered. Iodinated contrast, diluted in 1-10 solution was injected directly into the drains. 10 mL of contrast was evidently injected into the left lower quadrant drain which elucidated pain. 20 mL of contrast solution was injected into the right transgluteal drain. Following the first and an additional 50 mL of dilute contrast solution was injected into the perirectal drain and a secondary CT of the pelvis only was performed. This CT examination was performed using dose optimization techniques as appropriate, variously including the following: *Automatedexposure control *Adjustment of mA and/or kV according to patient size (this includes techniques orstandardized protocols for targeted exams where dose is matched to indication/reason for exam; i.e. extremities or head) *Use of iterative reconstruction technique DLP: 630.46 mGy- cm, followed by 540.17 mGy-cm FINDINGS: LUNG BASES: The visualized lung bases are clear. LIVER: Homogeneous in attenuation. Normal in size. No focal lesion. GALLBLADDER: Status post cholecystectomy with surgical clips in the gallbladder fossa. BILIARY SYSTEM: No intrahepatic or extrahepatic biliary ductal dilation. PANCREAS: Homogeneous in attenuation. No pancreatic ductal dilatation. No focal lesion. SPLEEN: Upper limits of normal in size measuring 12 cm in the longest dimension. ADRENAL GLANDS: No focal nodule. KIDNEYS/BLADDER: Bilateral kidneys demonstrate symmetric enhancement. Bilateral nephrostomy tubes inplace with pigtails in the renal pelvis. Interval resolution of severe bilateral hydroureteronephrosis. GASTROINTESTINAL: Redemonstration of inflammatory changes along the distal sigmoid and rectum. In the proximal rectum there is fistulous communication with the adjacent abscess cavity best delineated on sagittal views (series 602 image 76 and 77). APPENDIX: The appendix is seen in its entirety a nd is unremarkable. PERITONEUM: No pneumoperitoneum. No ascites. No intra- abdominal fluid collection. LYMPH NODES: No pathologically enlarged abdominal or pelvic lymph nodes. PELVIC STRUCTURES: Redemonstration of right adnexal abscess, confirmed pyosalpinx with interval decrease size status post left lower quadrant approach small pigtail catheter placement.. The structure now measures 6.2 x 4.6 x4.5 cm , previously 10.9 x 4.9 x 6.6 cm. Medially adjacent to this is a pocket of air filled collection that is continuous with the perirectal abscess. The perirectal abscess is status post right transgluteal pigtail catheter placement and measures measures 9.6 x 4.1 x 5.7 cm (series 602 image 74).This abscess shows a fistulous communication with the adjacent rectum as described above. SOFT TISSUES: No significant hernia visualized. MUSCULOSKELETAL: Multilevel degenerative changes of the spine. 1. Redemonstration of right adnexal abscess, confirmed pyosalpinx with interval decrease size status post left lower quadrant approach small pigtail catheter placement. 2. Air and fluid-filled perirectal abscess is status post right transgluteal pigtail catheter placement and measures 9.6 x 4.1 x 5.7 cm This abscess shows a fistulous communication with the adjacent rectum. 3. Bilateral nephrostomy tubes in place with pigtails in the renal pelvis. Interval resolution of severe bilateral hydroureteronephrosis. Findings communicated with general surgery team at the time of the scan. Fleischner guidelines were followed. Current Medications: Current Medications[1] ALLERGIES: Allergies[2] > 35 min spent reviewing records, evaluating the patient, and formulating a plan of care Of note, some information is being carried forward from prior records for informational purposes only and is being cited so that efficiency, safety and quality of this patient's care is not compromised Sign Jenny Sanches MD ON LICENSE OF [facility] Infectious Diseases Available via [employer] 10/27/2025 4:31 PM [1] Current Facility-Administered Medications Medication Dose Route Frequency Provider Last Rate Last Admin lactated ringers (LR) infusion 100 mL/hr Intravenous Continuous Kelly Pérez MD 100 mL/hr at 10/26/252152 100 mL/hr at 10/26/25 215 acetaminophen (OFIRMEV) injection 1,000 mg 1,000 mg Intravenous Q6H Kelly Pérez MD Stopped at 10/27/25 1150 albuterol (PROVENTIL HFA; VENTOLIN HFA) inhaler 2 puff 2 puff Inhalation Q4H PRN Kelly Pérez MD ampicillin-sulbactam (UNASYN) 3 g in sodium chloride-MBP (NS) 100 mL IVPB-MBP 3 g Intravenous Q6H Jenny Sanches MD Stopped at 10/27/25 1235 [Provider Held] ARIPiprazole (ABILIFY) tablet 20 mg 20 mg Oral Daily Kelly Pérez MD 20 mg at 10/25/25 1018 [Provider Held] ascorbic acid (VITAMIN C) tablet 250 mg 250 mg Oral Daily Roberto Freedman MD 250 mg at 10/25/25 1018 [Provider Held] aspirin enteric coated (ECOTRIN LOW STRENGTH) tablet 81 mg 81 mg Oral Nightly Roberto Freedman MD [Provider Held] atorvastatin (LIPITOR) tablet 40 mg 40 mg Oral Nightly Kelly Pérez MD 40 mg at 10/24/25 2149 [Provider Held] baclofen (LIORESAL) tablet 10 mg 10 mg Oral TID Kelly Pérez MD 10 mg at 10/25/25 1403 [Provider Held] buPROPion (WELLBUTRIN XL) 24 hr tablet 300 mg 300 mg Oral QAM Kelly Pérez MD 300 mgat 10/25/25 0505 chlorhexidine gluconate 2 % wipes - daily CHG application Topical Daily Marcela Muro MD Given at112/27/24 0952 [Provider Held] clonazePAM (KlonoPIN) tablet 1 mg 1 mg Oral Q12H PRN Roberto Freedman MD 1 mg at112/25/24 2320 glucose (GLUTOSE 15) 40 % oral gel 37.5 g 1 Tube Oral Q15 Min PRN Roberto Freedman MD Or glucose (GLUTOSE 15) 40 % oral gel 75 g 2 Tube Oral Q15 Min PRN Roberto Freedman MD Or dextrose 50 % solution 12.5 g 12.5 g Intravenous Q15 Min PRN Roberto Freedman MD 12.5 g at 10/23/25 1748 Or dextrose 50 % solution 25 g 25 g Intravenous Q15 Min PRSerina Freedman MD Or glucagon (GLUCAGEN) injection 1 mg 1 mg Intramuscular Daily PRN Roberto Freedman MD diclofenac (VOLTAREN) 1 % gel 2 g 2 g Topical 4x Daily Roberto Freedman MD 2 g at 10/24/25 0826 [Provider Held] docusate sodium (COLACE) capsule 100 mg 100 mg Oral BID Roberto Freedman MD 100 mg at 10/25/25 1018 [Provider Held] ferrous sulfate EC tablet 325 mg 325 mg Oral Daily Roberto Freedman MD 325 mg at112/26/24 1018 [Provider Held] gabapentin (NEURONTIN) capsule 300 mg 300 mg Oral TID Kelly Pérez MD 300 mg at 10/25/25 1417 [Provider Held] haloperidol (HALDOL) tablet 2.5 mg 2.5 mg Oral BID Roberto Freedman MD 2.5 mg at112/26/24 1050 heparin (porcine) 5000 unit/mL injection 5,000 Units 5,000 Units Subcutaneous Q8H RACHEL Pérez MD 5,000 Units at 10/27/25 1116 HYDROmorphone (DILAUDID) injection 0.5 mg 0.5 mg Intravenous Q3H PRN Kelly Pérez MD 0.5 mg at 10/26/25 2152 HYDROmorphone (DILAUDID) injection 0.8 mg 0.8 mg Intravenous Q3H PRN Kelly Pérez MD 0.8 mg at 10/27/25 1551 HYDROmorphone (DILAUDID) injection 1 mg 1 mg Intravenous Q3H PRN Kelly Pérez MD 1 mg at 10/27/25 0205 [Provider Held] hydrOXYzine HCl (ATARAX) tablet 50 mg 50 mg Oral Q6H PRN Roberto Freedman MD insulin lispro (HumaLOG/ADMELOG) 100 units/mL injection 1-5 Units 1-5 Units Subcutaneous Q4H [facility] Roberto Freedman MD 1 Units at 10/27/25 1236 levothyroxine (SYNTHROID) in syringe 500 mcg 500 mcg Intravenous Once per day on Saturday Keron Alvarez DO [Provider Held] levothyroxine (SYNTHROID, LEVOTHROID) tablet 200 mcg 200 mcg Oral Daily 6AM Kelly Pérez MD 200 mcg at 10/25/25 0504 [Provider Held] lisinopril (PRINIVIL,ZeSTRIL) tablet 2.5 mg 2.5 mg Oral Daily Roberto Freedman MD [Provider Held] loratadine (CLARITIN) tablet 10 mg 10 mg Oral QAM Roberto Freedman MD [Provider Held] montelukast (SINGULAIR) tablet 10 mg 10 mg Oral Nightly Roberto Freedman MD 10 mg at 10/24/25 2149 naloxone (NARCAN) 0.4 mg/mL injection 0.4 mg 0.4 mg Intravenous Q5 Min PRN Kelly Pérez MD ondansetron (ZOFRAN) injection 4 mg 4 mg Intravenous Q6H PRN Kelly Pérez MD [Provider Held] oxyCODONE (ROXICODONE) immediate release tablet 10 mg 10 mg Oral Q3H PRN Kelly Pérez MD [Provider Held] oxyCODONE (ROXICODONE) immediate release tablet 5 mg 5 mg Oral Q3H PRN Kelly Pérez MD 5 mg at 10/26/25 0947 [Provider Held] PANTOprazole (PROTONIX) EC tablet 40 mg 40 mg Oral Daily Roberto Freedman MD 40 mg at 10/25/25 1018 simethicone (MYLICON) chewable tablet 80 mg 80 mg Oral Q6H PRN Kelly Pérez MD sodium chloride (NS) 0.9 % infusion - ADS Override Pull [Provider Held] sucralfate (CARAFATE) tablet 1 g 1 g Oral 4x daily Roberto Freedman MD 1 g at 10/25/25 1057 [2] No Known Allergies * Brandi Clifford MD - 10/27/2025 7:31 AM EST HOSPITAL MEDICINE PROGRESS NOTE Assessment & Plan Principal Problem: Sepsis (HCC) (POA: Unknown) Active Problems: Type 2 diabetes mellitus (HCC) (POA: Yes) Schizophrenia (HCC) (POA: Yes) Postoperative hypothyroidism (POA: Yes) Obstructive sleep apnea syndrome (POA: Yes) Gastroesophageal reflux disease (POA: Yes) Hyperlipidemia (POA: Yes) Hypertension (POA: Yes) Chronic obstructive lung disease (HCC) (POA: Yes) Bipolar disorder (HCC) (POA: Yes) Tubo-ovarian abscess (POA: Unknown) Urinary tract infection (POA: Unknown) MADELINE (acute kidney injury) (POA: Unknown) Anemia (POA: Unknown) Hypocalcemia (POA: Unknown) Hypokalemia (POA: Unknown) High anion gap metabolic acidosis (POA: Unknown) Ureteral obstruction (POA: Yes) Resolved Problems: Brief Summary 55 year old female with past medical history of hypertension, hyperlipidemia, type 2 diabetes, COPD, DANIEL, schizophrenia, bipolar disorder, history of papillary thyroid carcinoma s/p thyroidectomy, history of NSCLC s/p resection admitted for sepsis with known tubo-ovarian abscess and MADELINE with hydronephrosis. She had bilateral nephrostomy tubes and 2 abdominal/pelvic drains places on 10/23. She hadan exploratory laparotomy, abdominal washout, colostomy, and flexible sigmoidoscopy on 10/25. She developed AMS post op 10/25 for which Medicine consulted Assessment and plan: Acute delirium Likely post operative in the setting of infection Recent B12 levels normal. Ammonia levels unremarkable TSH mildly elevated, continue IV levothyroxine while NPO Resume psych meds when able to tolerate PO Can use prn Haldol IV 2 mg prn for agitation Recommend discontinuing restraints. Ordered COIN for close monitoring Tubo ovarian abscess UTI S/p Pelvic and left adnexal drain placement 10/23. Cx with E coli and Strep constellatus Urine cultures from nephrostomy tubes 10/23 NGTD S/p Ex Lap, abd washout, colostomy, flex sig 10/25 ID following, currently on unasyn Acute kidney injury, resolved Creatinine 4.59 on admission, baseline at 1-1.3. Patient had severe bilateral hydronephrosis, urology following. S/p bilateral nephrostomy tubes on 10/23 Was on IVF, creatinine continues to improve. Renal functions at baseline, 1.26. Noted hypernatremia at 149 today, given pt was NPO, she is started on clear liquids. Will follow Natrend Hyperlipidemia Continue atorvastatin 40 mg daily DM 2, A1c at 9% On metformin, Ozempic and glipizide at home Currently on SSI, hypoglycemia protocol in place Normocytic anemia Hemoglobin was 7 on presentation, B12 unremarkable Iron panel consistent with anemia of chronic disease Hb down to 6.5 today, doubt if this is hemodilutional in the setting of IVF. Ordered fro a repeat Hb level Maintain Hb goal >7 Bipolar disorder Schizophrenia Home meds: BuSpar, Abilify, Haldol, Klonopin currently on hold while NPO History of papillary thyroid carcinoma s/p thyroidectomy 2020 Patient on levothyroxine 200 mcg daily at home, started on IV given elevated TSH while patient remains NPO. Will need repeat TSH in 6 weeks COPD/asthma History of NSCLC, s/p resection of LLL 02/2025 DANIEL On 2 L oxygen at home nightly Continue home Singulair and as needed albuterol GERD Continue PPI Thank you for the consult, we will continue to follow the patient with you. Please reach out for any questions or concerns. Quality Metrics DVT PROPHYLAXIS Risk Assessment Scores and Dates: VTE Time Out Caprini SCORE: 7 (10/25/2025 9:06 PM) Interpretation - High Risk Chemical Prophylaxis heparin (porcine) 5000 unit/mL injection 5,000 Units Subcutaneous Every 8 hours scheduled Heparin Sodium (Porcine) 5000 Units Last dose 10/25/2025 5:01 AM Heparin (Porcine) in NaCl, Heparin Sodium (Porcine) 5000 Units Last dose 10/25/2025 4:10 PM Heparin Sodium (Porcine) 5000 Units Last dose 10/27/2025 2:05 AM Mechanical Prophylaxis SCDs are ordered - Bilateral (Knee High) Antibiotic Stewardship (Disclaimer : absence of data in section implies that patient is not on any antibiotics). ANTIBIOTIC TIME OUT Current antibiotic/day of therapy: Anti-infectives (From admission, onward) Start Dose/Rate Route Frequency Ordered Stop 10/26/25 1800 ampicillin-sulbactam (UNASYN) 3 g in sodium chloride-MBP (NS) 100 mL IVPB-MBP 3 g 100 mL/hr over 60 Minutes Intravenous Every 6 hours 10/26/25 1420 Expected Date of Discharge 10/28/2025 Subjective Chief complaint Chief Complaint Patient presents with Abnormal Test Result Patient is being seen for acute medical problems and follow-up for chronic medical issues as mentioned in the assessment and plan above. Overnight Events/Patient Discussion: Patient seen and examined at bedside. She has BUE restraints Denies any confusion, oriented x3. Denies any uncontrolled pain. Objective Vitals: 10/26/25 1900 10/26/25 2000 10/26/258 10/26/258 BP: (!) 157/93 (!) 140/70 (!) 144/74 (!) 144/78 Pulse: (!) 102 99 85 84 Resp: (!) 15 20 20 Temp: 97.6 ??F (36.4 ??C) 98.2 ??F (36.8 ??C) SpO2: 98% 98% 98% 98% 10/26/25 2321 10/27/25 0228 10/27/25 0320 10/27/25 0725 BP: (!) 144/70 (!) 144/74 (!) 140/70 Pulse: 98 79 95 86 Resp: 20 20 18 Temp: 97.6 ??F (36.4 ??C) 97.3 ??F (36.3 ??C) 96.6 ??F (35.9 ??C) SpO2: 98% 99% 99% 99% Physical Exam Constitutional: General: She is not in acute distress. Appearance: Normal appearance. She is obese. HENT: Head: Normocephalic and atraumatic. Mouth/Throat: Mouth: Mucous membranes are moist. Cardiovascular: Rate and Rhythm: Normal rate. Pulses: Normal pulses. Heart sounds: Normal heart sounds. Pulmonary: Effort: Pulmonary effort is normal. Breath sounds: Normal breath sounds. Abdominal: Palpations: Abdomen is soft. Comments: Abdominal drains in place Skin: General: Skin is warm and dry. Neurological: Mental Status: She is alert and oriented to person, place, and time. Psychiatric: Mood and Affect: Mood normal. Behavior: Behavior normal. Thought Content: Thought content normal. Relevant data reviewed Results from last 7 days Lab Units 10/26/25 0357 WHITE BLOOD CELL COUNT Thou/uL 37.5* HEMOGLOBIN g/dL 7.6* HEMATOCRIT % 23.1* PLATELET COUNT Thou/uL 465* Results from last 7 days Lab Units 10/27/25 0512 10/26/25 0520 10/26/25 0357 SODIUM mmol/L -- -- 145 POTASSIUM mmol/L -- -- 4.1 CHLORIDE mmol/L -- -- 111* CO2 mmol/L -- -- 22 BUN mg/dL -- -- 15 CREATININE mg/dL -- -- 1.30* EGFR -- -- 49* GLUCOSE mg/dL -- -- 171* GLUCOSE, POC mg/dL 133* < > -- CALCIUM mg/dL -- -- 8.4* < > = values in this interval not displayed. Sign Brandi Clifford MD 10/27/2025 7:32 AM * Mare Cruz MD - 10/27/2025 7:28 AM EST Gynecology Oncology Progress Note Assessment & Plan 55 y.o. admitted as a transfer from outside hospital due to worsening TOA status post IR guided placement of bilateral PCN and intra-abdominal drains now POD#2 s/p exploratory laparotomy, abdominal washout, loop colostomy and flex sigmoidoscopy for TOA and rectal fistula. Continues to only be oriented to self, but otherwise answering questions appropriately and likely secondary to delirium. Plan Neuro: New altered mental status postoperatively. Patient only oriented to self and not following commands. Needing restraints overnight. Not tolerating PO, may need to consider swallow eval. Medications transitioned to IV. Medicine following, recommending PRN haldol MMPR with IV Tylenol and Dilaudid PRN. Holding NSAIDs due to MADELINE. Holding home abilify, buproprion, gabapentin, baclofen, haldol, synthroid CV/Pulm: COPD on 2L NC at baseline Holding home crestor, ASA, lisinopril. Heme: AM labs pending ID: Antibiotics transitioned from Zosyn to CTX/Flagyl per ID Trend WBC, most recently 37.5 yesterday, likely increased in postoperative setting GI: NPO, IVF at 100cc/h, advance to clears today per surgery Surgery following, appreciate recommendations : Petty in, bilateral PCNs in place. Strict I/Os Endocrine T2DM, FS/ISS Drains: New Juan drain placed in left adnexa abscess bed anterior to existing 10 Fr mini loop drain placedby IR on 10/23, exiting through right lower quadrant Existing 12 Fr drain placed in presacral abscess (right transgluteal) Existing 10 Fr mini loop drain in left adnexa Existing bilateral 10 Fr percutaneous nephrosotomy tubes DVT ppx: Encourage ambulation, SCDs on and in place, heparin Dispo: continue inpatient management Mare Cruz MD PGY4 [facility] Resident 10/27/2025 7:28 AM Subjective Patient doing okay this morning. Pain well-controlled with pain medication. Has not yet ambulated. Petty catheter in place. Tolerating NPO without nausea/vomiting. Denies chest pain, shortness of breath. Objective Physical exam Last Vitals: Vitals: 10/27/25 0320 BP: (!) 144/74 Pulse: 95 Resp: 20 Temp: 97.3 ??F (36.3 ??C) SpO2: 99% Weight: Height: Intake/Output Summary (Last 24 hours) at 10/27/2025 0728 Last data filed at 10/27/2025 0600 Gross per 24 hour Intake 9 ml Output 3840 ml Net -3831 ml Gen: No apparent distress, alert and oriented to person only Pulm: No increased work of breathing Abd: Soft, minimally tender, non-distended, no rebound or guarding; ostomy with gas and stool Incisions: Clean, dry, intact with dressing. No surrounding erythema, induration, drainage Ext: calves equal and nontender, SCDs in place Labs: Recent Results (from the past 24 hours) POCT Glucose, Fingerstick Collection Time: 10/26/25 7:52 AM Specimen: Blood Result Value Ref Range POC Glucose 127 (H) 65 - 99 mg/dL POCT Glucose, Fingerstick Collection Time: 10/26/25 12:33 PM Specimen: Blood Result Value Ref Range POC Glucose 156 (H) 65 - 99 mg/dL TSH (Routine) Collection Time: 10/26/25 3:42 PM Specimen: Blood Result Value Ref Range TSH, Highly Sensitive 14.40 (H) 0.27 - 4.20 mIU/L T4, Free Collection Time: 10/26/25 3:42 PM Specimen: Blood Result Value Ref Range T4, Free 0.71 (L) 0.80 - 1.90 ng/dL Vitamin D, 25-Hydroxy Collection Time: 10/26/25 3:42 PM Specimen: Blood Result Value Ref Range Vitamin D, 25-Hydroxy 25 (L) 30 - 100 ng/mL Ammonia Level Collection Time: 10/26/25 3:45 PM Specimen: Blood Result Value Ref Range Ammonia, Plasma 34 11 - 51 umol/L POCT Glucose, Fingerstick Collection Time: 10/26/25 6:34 PM Specimen: Blood Result Value Ref Range POC Glucose 149 (H) 65 - 99 mg/dL POCT Glucose, Fingerstick Collection Time: 10/26/25 9:32 PM Specimen: Blood Result Value Ref Range POC Glucose 131 (H) 65 - 99 mg/dL POCT Glucose, Fingerstick Collection Time: 10/27/25 12:42 AM Specimen: Blood Result Value Ref Range POC Glucose 125 (H) 65 - 99 mg/dL POCT Glucose, Fingerstick Collection Time: 10/27/25 5:12 AM Specimen: Blood Result Value Ref Range POC Glucose 133 (H) 65 - 99 mg/dL Cosigned by Hai Meneses MD at 10/27/2025 6:51 PM EST [facility], Hai Guido MD - 10/27/2025 6:51 PM EST I have personally interviewed and examined the patient and reviewed the resident's note. I agree with the history, exam, assessment and plan as detailed in the Resident's note with the following additions/exceptions/observations. Appears non-toxic, though she continues to be only oriented x 1. Abdomen soft, NT, wound looks good, ostomy pink with some output. Tolerated clears. Hopefully she will improve once she is able to restart her psych medications. Per ID, expect long course of IV antibiotics. Edwin Meneses MD, MS Gynecologic Oncology Division [facility] 6:49 PM * Yvon Velez MD - 10/27/2025 5:35 AM EST Daily General Surgery Progress Note Assessment & Plan Sis Valdez is a 55 y.o. female who is now s/p exploratory laparotomy, ovarian cyst aspirationand washout, flexible sigmoidoscopy and loop colostomy creation for tubo-ovarian abscess complicated by rectal fistula (10/25). She is currently afebrile and hemodynamically stable. On 2 L nasal cannula. Abdomen is soft, appropriately tender, minimally distended with surgical dressing CDI. Ostomy is pink, patent, and functioning with minimal amounts of gas. Post op course complicated by altered mental status requiring restraints to prevent interference with medical care. ID and internal medicine consulted for abscess management and ams, respectively. Plan - Diet: Clears - Monitor bowel function and ostomy output - Appreciate recommendations from ID, Medicine - Please contact [facility] with any questions Principal Problem: Sepsis (HCC) (POA: Unknown) Active Problems: Type 2 diabetes mellitus (HCC) (POA: Yes) Schizophrenia (HCC) (POA: Yes) Postoperative hypothyroidism (POA: Yes) Obstructive sleep apnea syndrome (POA: Yes) Gastroesophageal reflux disease (POA: Yes) Hyperlipidemia (POA: Yes) Hypertension (POA: Yes) Chronic obstructive lung disease (HCC) (POA: Yes) Bipolar disorder (HCC) (POA: Yes) Tubo-ovarian abscess (POA: Unknown) Urinary tract infection (POA: Unknown) MADELINE (acute kidney injury) (POA: Unknown) Anemia (POA: Unknown) Hypocalcemia (POA: Unknown) Hypokalemia (POA: Unknown) High anion gap metabolic acidosis (POA: Unknown) Ureteral obstruction (POA: Yes) Resolved Problems: Subjective No acute events overnight. Pain currently well controlled. Denies nausea and vomiting. Output in ostomy bag. Objective Last Vitals Pulse:95,Resp:20,BP:(!) 144/74,SpO2:99 %,Weight:96.6 kg (212 lb 15.4 oz) Temp Last 24 hrs: Temp Min: 97.3 ??F (36.3 ??C) Max: 98.2 ??F (36.8 ??C) Last temp: 97.3 ??F (36.3 ??C) (Tympanic) Intake/Output Summary (Last 24 hours) at 10/27/2025 0597 Last data filed at 10/27/2025 0125 Gross per 24 hour Intake 9 ml Output 2780 ml Net -2771 ml Physical Exam Gen: alert, no acute distress Card: regular rate Pulm: normal effort of breathing with no signs of acute respiratory distress Abd: soft, nondistended, no TTP, incisions CDI. Ostomy in place w/o leak and brown stool in bag Skin: warm and dry VTE Time Out Caprini SCORE: 7 (10/25/2025 9:06 PM) Interpretation - High Risk Chemical Prophylaxis heparin (porcine) 5000 unit/mL injection 5,000 Units Subcutaneous Every 8 hours scheduled Heparin Sodium (Porcine) 5000 Units Last dose 10/25/2025 5:01 AM Heparin (Porcine) in NaCl, Heparin Sodium (Porcine) 5000 Units Last dose 10/25/2025 4:10 PM Heparin Sodium (Porcine) 5000 Units Last dose 10/27/2025 2:05 AM Mechanical Prophylaxis SCDs are ordered - Bilateral (Knee High) Labs: White Blood Cell Count Date Value Ref Range Status 10/26/2025 37.5 (HH) 4.0 - 11.0 Thou/uL Final Comment: Results verified by smear review. Hemoglobin, I-STAT Date Value Ref Range Status 10/25/2025 9.9 (L) 11.7 - 15.7 gm/dL Final Hemoglobin Date Value Ref Range Status 10/26/2025 7.6 (L) 11.7 - 15.7 g/dL Final Hematocrit, I-STAT Date Value Ref Range Status 10/25/2025 29.0 (L) 35.0 - 47.0 % Final Hematocrit Date Value Ref Range Status 10/26/2025 23.1 (L) 35.0 - 47.0 % Final Platelet Count Date Value Ref Range Status 10/26/2025 465 (H) 150 - 450 Thou/uL Final Lab Results Component Value Date NA 145 10/26/2025 NA 145 10/25/2025 K 4.1 10/26/2025 K 4.0 10/25/2025 CL 111 (H) 10/26/2025 CO2 22 10/26/2025 CO2 25 10/25/2025 BUN 15 10/26/2025 CREAT 1.30 (H) 10/26/2025 GLUC 133 (H) 10/27/2025 GLUC 171 (H) 10/26/2025 GLUC 146 (H) 10/25/2025 Lab Results Component Value Date CALCIUM 8.4 (L) 10/26/2025 MG 1.5 (L) 10/26/2025 PHOS 4.4 10/26/2025 Lab Results Component Value Date AST 56 (H) 10/22/2025 ALT 28 10/22/2025 ALKPHOS 125 (H) 10/22/2025 BILITOT 0.3 10/22/2025 ALBUMIN 3.5 10/22/2025 PROT 7.2 10/22/2025 Lab Results Component Value Date LIPASE 32 10/22/2025 Lab Results Component Value Date PTT 26 10/22/2025 LABPROT 15.0 (H) 10/22/2025 INR 1.3 10/22/2025 Imaging Studies XR Abdomen 1 view-Portable Result Date: 10/25/2025 EXAMINATION: XR ABDOMEN KUB CLINICAL INDICATION: incorrect count COMPARISON: None available. TECHNIQUE: AP view of the abdomen. FINDINGS: There is a surgical probe overlying the pelvis/vagina. Bilateral nephrostomy tube catheters are noted. 3 pelvic surgical drains are noted. Surgical probe overlying the pelvis/vagina, please remove and repeat films. Report communicated intraoperatively to Dr. Alicia at 8:[address] Abdomen+pelvis w/contrast Result Date: 10/25/2025 EXAMINATION: CT ABDOMEN AND PELVIS WITH CONTRAST CLINICAL INFORMATION: Concern for bowel perforation COMPARISON: 10/22/2025 TECHNIQUE: Contiguous axial images were obtained through the abdomen and pelvis after administration of contrast 60 mL of Omnipaque 350. Coronal and sagittal reformations wereperformed. Oral contrast was not administered. Iodinated contrast, diluted in 1-10 solution was injected directly into the drains. 10 mL of contrast was evidently injected into the left lower quadrant drain which elucidated pain. 20 mL of contrast solution was injected into the right transgluteal drain. Following the first and an additional 50 mL of dilute contrast solution was injected into the perirectal drain and a secondary CT of the pelvis only was performed. This CT examination was performed using dose optimization techniques as appropriate, variously including the following: *Automatedexposure control *Adjustment of mA and/or kV according to patient size (this includes techniques orstandardized protocols for targeted exams where dose is matched to indication/reason for exam; i.e. extremities or head) *Use of iterative reconstruction technique DLP: 630.46 mGy- cm, followed by 540.17 mGy-cm FINDINGS: LUNG BASES: The visualized lung bases are clear. LIVER: Homogeneous in attenuation. Normal in size. No focal lesion. GALLBLADDER: Status post cholecystectomy with surgical clips in the gallbladder fossa. BILIARY SYSTEM: No intrahepatic or extrahepatic biliary ductal dilation. PANCREAS: Homogeneous in attenuation. No pancreatic ductal dilatation. No focal lesion. SPLEEN: Upper limits of normal in size measuring 12 cm in the longest dimension. ADRENAL GLANDS: No focal nodule. KIDNEYS/BLADDER: Bilateral kidneys demonstrate symmetric enhancement. Bilateral nephrostomy tubes inplace with pigtails in the renal pelvis. Interval resolution of severe bilateral hydroureteronephrosis. GASTROINTESTINAL: Redemonstration of inflammatory changes along the distal sigmoid and rectum. In the proximal rectum there is fistulous communication with the adjacent abscess cavity best delineated on sagittal views (series 602 image 76 and 77). APPENDIX: The appendix is seen in its entirety a nd is unremarkable. PERITONEUM: No pneumoperitoneum. No ascites. No intra- abdominal fluid collection. LYMPH NODES: No pathologically enlarged abdominal or pelvic lymph nodes. PELVIC STRUCTURES: Redemonstration of right adnexal abscess, confirmed pyosalpinx with interval decrease size status post left lower quadrant approach small pigtail catheter placement.. The structure now measures 6.2 x 4.6 x4.5 cm , previously 10.9 x 4.9 x 6.6 cm. Medially adjacent to this is a pocket of air filled collection that is continuous with the perirectal abscess. The perirectal abscess is status post right transgluteal pigtail catheter placement and measures measures 9.6 x 4.1 x 5.7 cm (series 602 image 74).This abscess shows a fistulous communication with the adjacent rectum as described above. SOFT TISSUES: No significant hernia visualized. MUSCULOSKELETAL: Multilevel degenerative changes of the spine. 1. Redemonstration of right adnexal abscess, confirmed pyosalpinx with interval decrease size status post left lower quadrant approach small pigtail catheter placement. 2. Air and fluid-filled perirectal abscess is status post right transgluteal pigtail catheter placement and measures 9.6 x 4.1 x 5.7 cm This abscess shows a fistulous communication with the adjacent rectum. 3. Bilateral nephrostomy tubes in place with pigtails in the renal pelvis. Interval resolution of severe bilateral hydroureteronephrosis. Findings communicated with general surgery team at the time of the scan. Fleischner guidelines were followed. Electronically Signed Yvon Velez MD General Surgery, PGY-1 10/27/2025 5:35 AM * Malu Castro PA-C - 10/26/2025 5:10 PM EST BENDER MACHINE/ONC PM Progress Note Assessment & Plan Assessment 55 y.o. admitted as a transfer from outside hospital due to worsening TOA status post IR guided placement of bilateral PCN and intra-abdominal drains now POD#1 s/p exploratory laparotomy, abdominal washout, loop colostomy and flex sigmoidoscopy for TOA and rectal fistula. Continues to have some confusion. Plan -Appreciate medicine and infectious disease input -Updated on plan of care - Remainder of plan per a.m. note Malu Castro PA-C 10/26/2025 5:10 PM Subjective Patient seen in PACU. Patient offers no complaint, however is confused. Believes she has had a little home and was unaware she had surgery Objective Physical Exam BP (!) 125/57 (BP Location: Left arm, Patient Position: Lying) Pulse 83 Temp 98.2 ??F (36.8 ??C) (Tympanic) Resp 14 Ht 1.721 m (5' 7.75 ) Wt 96.6 kg (212 lb 15.4 oz) SpO2 98% BMI 32.62 kg/m?? Intake/Output Summary (Last 24 hours) at 10/26/2025 1710 Last data filed at 10/26/2025 1224 Gross per 24 hour Intake 2518 ml Output 2910 ml Net -392 ml Gen: NAD, Not orientation Abd: Soft, appropriately tenderness. Ostomy pink with output . RLQ & LLQ drain with serosanguineous drainage. Bilateral PCNs draining urine. Right transgluteal drain with feculent/serosanguineousdrainage. Incision clean dry and intact closed with humza * Jenny Sanches MD - 10/26/2025 2:42 PM EST Images from the original note were not included. ON LICENSE OF [facility] ID Progress Note Name: Sis Valdez Age: 55 y.o. Sex: female ASSESSMENT & PLAN Sis Valdez is a 55 year-old female with history of DM, DANIEL, thyroid cancer s/p resection, lung cancer s/p resection, recurrent uterine bleeding who was transferred from [facility] for escalation of care in the setting of tubo- ovarian abscess, acute renal failure and shock She was recently admitted to [facility] 10/01-10/08 due to TOA and MADELINE. She underwent IR drainage but no drain was left in. Culture from IR drainage was negative. She was givem meropenem in thebeginning and was discharged on Amox- clav and Flagyl. She was off treatment for 10 days. Assessment: 1) Tubo-ovarian abscess 2) Rectal fistula 3) Bilateral severe hydroureteronephrosis s/p PCN placement, improved 4) MADELINE - reviewed hospital course - s/p Exploratory laparotomy, abdominal washout, drainage of pelvic abscess on 10/25. A pinpoint rectal fistula was found on flexible sigmoidoscopy. No overt pus or stool on abdominal entry Frozen pelvis was noted with sigmoid colon morbidly adherent to bladder, uterus, bilateral adnexa, cecum & appendix adherent to right adnexa - she has drains to the left adnexa abscess (in RLQ), presacral abscess (right transgluteal), mini drain from the left adnexa abscess (in LLQ), bilateral nephrostomy tubes - Ovarian abscess culture grew E.coli and S.constellatus 10/23 Sacral abscess culture grew Enterococcus species, E.coli and S.constellatus. Plan: Given the additional growth of Enterococcus, antibiotics were switched to IV Unasyn 3g q6hr. Discontinued ceftriaxone/flagyl. Reviewed OR findings Follow up cultures ANTIBIOTIC TIME OUT Current antibiotic/day of therapy: Anti-infectives (From admission, onward) Start Dose/Rate Route Frequency Ordered Stop 10/26/25 1800 ampicillin-sulbactam (UNASYN) 3 g in sodium chloride-MBP (NS) 100 mL IVPB-MBP 3 g 100 mL/hr over 60 Minutes Intravenous Every 6 hours 10/26/25 1420 SUBJECTIVE She is still in PACU after the surgery yesterday. Afebrile and normotensive. She is somnolent afterthe dose of dilaudid. OBJECTIVE Physical Examination: Vitals: 10/26/25 1400 BP: 129/61 Pulse: 94 Resp: 18 Temp: SpO2: 97% Weight: Height: General appearance -somnolent, snoring HEENT - eyes closed Chest - clear to auscultation Heart - RRR, no M/R/G Abdomen -soft, distended, multiple abscess drains (RLQ, LLQ, transgluteal), PCNs, colostomy bag in place Extremities - no cyanosis SKIN- No rash or ulcer Neuro- somnolent LABORATORY AND DIAGNOSTIC DATA: Lab and imaging data were reviewed by ms -Blood cultures 10/22 [place] [place] NGTD -Urine cultures 10/22 ([facility] [place] >100,000 GNR -C. Diff negative -Blood cultures 10/22: NGTD -MRSA Nares negative Results from last 7 days Lab Units 10/26/25 0357 10/25/25 0546 10/24/25 0646 WHITE BLOOD CELL COUNT Thou/uL 37.5* 24.3* 21.8* HEMOGLOBIN g/dL 7.6* 7.8* 7.5* HEMATOCRIT % 23.1* 24.0* 23.6* PLATELET COUNT Thou/uL 465* 482* 422 Results from last 7 days Lab Units 10/26/25 1233 10/26/25 0752 10/26/25 0520 10/26/25 0357 10/25/25 0842 10/25/25 0546 10/24/25 0740 10/24/25 0646 10/23/25 0246 10/22/25 1818 SODIUM mmol/L -- -- -- 145 -- 141 -- 146* < > 135* POTASSIUM mmol/L -- -- -- 4.1 -- 3.3* -- 3.5 < > 3.2* CHLORIDE mmol/L -- -- -- 111* -- 106 -- 111* < > 96* CO2 mmol/L -- -- -- 22 -- 22 -- 21* < > 20* BUN mg/dL -- -- -- 15 -- 20 -- 32* < > 45* CREATININE mg/dL -- -- -- 1.30* -- 1.59* -- 2.25* < > 3.83* CALCIUM mg/dL -- -- -- 8.4* -- 8.7 -- 8.4* < > 7.8* GLUCOSE mg/dL -- -- -- 171* -- 129* -- 72 < > 85 GLUCOSE, POC mg/dL 156* 127* 166* -- < > -- < > -- < > -- EGFR -- -- -- 49* -- 39* -- 25* < > 13* ALBUMIN g/dL -- -- -- -- -- -- -- -- -- 3.5 PROTEIN, TOTAL g/dL -- -- -- -- -- -- -- -- -- 7.2 BILIRUBIN TOTAL mg/dL -- -- -- -- -- -- -- -- -- 0.3 ALK PHOS U/L -- -- -- -- -- -- -- -- -- 125* ALT U/L -- -- -- -- -- -- -- -- -- 28 AST U/L -- -- -- -- -- -- -- -- -- 56* < > = values in this interval not displayed. Lab Results Component Value Date ALT 28 10/22/2025 AST 56 (H) 10/22/2025 ALKPHOS 125 (H) 10/22/2025 BILITOT 0.3 10/22/2025 Results from last 7 days Lab Units 10/22/25 1818 PROTHROMBIN TIME (PT) seconds 15.0* APTT seconds 26 INR 1.3 proBNP, N-terminal Date Value Ref Range Status 10/23/2025 1,039 (H) <125 pg/mL Final No results found for: SEDRATE No results found for: CRP Blood Cultures: Lab Results Component Value Date CULTURE Negative after 3 days 10/23/2025 Urine Cultures: Lab Results Component Value Date HYALNCSTUA Present 10/22/2025 BILIUA Negative 10/22/2025 BLOODUA Small (A) 10/22/2025 CLARITYUA Cloudy 10/22/2025 COLORUA Yellow 10/22/2025 KETONESUA Negative 10/22/2025 LEUKOCYTESUA Moderate (A) 10/22/2025 NITRITEUA Negative 10/22/2025 PHUA 5.0 10/22/2025 PROTEINUA Trace (A) 10/22/2025 RBCUA 1 10/22/2025 SPECGRAVUA 1.010 10/22/2025 WBCUA >25 (H) 10/22/2025 OTHER MICROBIOLOGY: C. Difficile: No results found for: CDIFFTOX , NAP1 Imaging Studies XR Abdomen 1 view-Portable Result Date: 10/25/2025 EXAMINATION: XR ABDOMEN KUB CLINICAL INDICATION: incorrect count COMPARISON: None available. TECHNIQUE: AP view of the abdomen. FINDINGS: There is a surgical probe overlying the pelvis/vagina. Bilateral nephrostomy tube catheters are noted. 3 pelvic surgical drains are noted. Surgical probe overlying the pelvis/vagina, please remove and repeat films. Report communicated intraoperatively to Dr. Alicia at 8:[address] Abdomen+pelvis w/contrast Result Date: 10/25/2025 EXAMINATION: CT ABDOMEN AND PELVIS WITH CONTRAST CLINICAL INFORMATION: Concern for bowel perforation COMPARISON: 10/22/2025 TECHNIQUE: Contiguous axial images were obtained through the abdomen and pelvis after administration of contrast 60 mL of Omnipaque 350. Coronal and sagittal reformations wereperformed. Oral contrast was not administered. Iodinated contrast, diluted in 1-10 solution was injected directly into the drains. 10 mL of contrast was evidently injected into the left lower quadrant drain which elucidated pain. 20 mL of contrast solution was injected into the right transgluteal drain. Following the first and an additional 50 mL of dilute contrast solution was injected into the perirectal drain and a secondary CT of the pelvis only was performed. This CT examination was performed using dose optimization techniques as appropriate, variously including the following: *Automatedexposure control *Adjustment of mA and/or kV according to patient size (this includes techniques orstandardized protocols for targeted exams where dose is matched to indication/reason for exam; i.e. extremities or head) *Use of iterative reconstruction technique DLP: 630.46 mGy- cm, followed by 540.17 mGy-cm FINDINGS: LUNG BASES: The visualized lung bases are clear. LIVER: Homogeneous in attenuation. Normal in size. No focal lesion. GALLBLADDER: Status post cholecystectomy with surgical clips in the gallbladder fossa. BILIARY SYSTEM: No intrahepatic or extrahepatic biliary ductal dilation. PANCREAS: Homogeneous in attenuation. No pancreatic ductal dilatation. No focal lesion. SPLEEN: Upper limits of normal in size measuring 12 cm in the longest dimension. ADRENAL GLANDS: No focal nodule. KIDNEYS/BLADDER: Bilateral kidneys demonstrate symmetric enhancement. Bilateral nephrostomy tubes inplace with pigtails in the renal pelvis. Interval resolution of severe bilateral hydroureteronephrosis. GASTROINTESTINAL: Redemonstration of inflammatory changes along the distal sigmoid and rectum. In the proximal rectum there is fistulous communication with the adjacent abscess cavity best delineated on sagittal views (series 602 image 76 and 77). APPENDIX: The appendix is seen in its entirety a nd is unremarkable. PERITONEUM: No pneumoperitoneum. No ascites. No intra- abdominal fluid collection. LYMPH NODES: No pathologically enlarged abdominal or pelvic lymph nodes. PELVIC STRUCTURES: Redemonstration of right adnexal abscess, confirmed pyosalpinx with interval decrease size status post left lower quadrant approach small pigtail catheter placement.. The structure now measures 6.2 x 4.6 x4.5 cm , previously 10.9 x 4.9 x 6.6 cm. Medially adjacent to this is a pocket of air filled collection that is continuous with the perirectal abscess. The perirectal abscess is status post right transgluteal pigtail catheter placement and measures measures 9.6 x 4.1 x 5.7 cm (series 602 image 74).This abscess shows a fistulous communication with the adjacent rectum as described above. SOFT TISSUES: No significant hernia visualized. MUSCULOSKELETAL: Multilevel degenerative changes of the spine. 1. Redemonstration of right adnexal abscess, confirmed pyosalpinx with interval decrease size status post left lower quadrant approach small pigtail catheter placement. 2. Air and fluid-filled perirectal abscess is status post right transgluteal pigtail catheter placement and measures 9.6 x 4.1 x 5.7 cm This abscess shows a fistulous communication with the adjacent rectum. 3. Bilateral nephrostomy tubes in place with pigtails in the renal pelvis. Interval resolution of severe bilateral hydroureteronephrosis. Findings communicated with general surgery team at the time of the scan. Fleischner guidelines were followed. Current Medications: Current Medications[1] ALLERGIES: Allergies[2] > 50 min spent reviewing records, evaluating the patient, and formulating a plan of care Of note, some information is being carried forward from prior records for informational purposes only and is being cited so that efficiency, safety and quality of this patient's care is not compromised Sign Jenny Sanches MD [facility] Available via [employer] 10/26/2025 2:42 PM [1] Current Facility-Administered Medications Medication Dose Route Frequency Provider Last Rate Last Admin lactated ringers (LR) infusion 125 mL/hr Intravenous Continuous Tim Spangler DO lactated ringers (LR) infusion 100 mL/hr Intravenous Continuous Kelly Pérez MD 100 mL/hr at 10/25/252123 100 mL/hr at 10/25/252123 acetaminophen (OFIRMEV) injection 1,000 mg 1,000 mg Intravenous Q6H Kelly Pérez MD 400 mL/hr at 10/26/25 1032 1,000 mg at 10/26/25 1032 albuterol (PROVENTIL HFA; VENTOLIN HFA) inhaler 2 puff 2 puff Inhalation Q4H PRN Kelly Pérez MD ampicillin-sulbactam (UNASYN) 3 g in sodium chloride-MBP (NS) 100 mL IVPB-MBP 3 g Intravenous Q6H Jenny Sanches MD [Provider Held] ARIPiprazole (ABILIFY) tablet 20 mg 20 mg Oral Daily Kelly Pérez MD 20 mg at 10/25/25 1018 [Provider Held] ascorbic acid (VITAMIN C) tablet 250 mg 250 mg Oral Daily Roberto Freedman MD 250 mg at 10/25/25 1018 [Provider Held] aspirin enteric coated (ECOTRIN LOW STRENGTH) tablet 81 mg 81 mg Oral Nightly Roberto Freedman MD [Provider Held] atorvastatin (LIPITOR) tablet 40 mg 40 mg Oral Nightly Kelly Pérez MD 40 mg at 10/24/25 2149 [Provider Held] baclofen (LIORESAL) tablet 10 mg 10 mg Oral TID Kelly Pérez MD 10 mg at 10/25/25 1403 [Provider Held] buPROPion (WELLBUTRIN XL) 24 hr tablet 300 mg 300 mg Oral QAM Kelly Pérez MD 300 mgat 10/25/25 0505 chlorhexidine gluconate 2 % wipes - daily CHG application Topical Daily Marcela Muro MD Given at112/27/24 0952 [Provider Held] clonazePAM (KlonoPIN) tablet 1 mg 1 mg Oral Q12H PRN Roberto Freedman MD 1 mg at112/25/24 2320 glucose (GLUTOSE 15) 40 % oral gel 37.5 g 1 Tube Oral Q15 Min PRN Roberto Freedman MD Or glucose (GLUTOSE 15) 40 % oral gel 75 g 2 Tube Oral Q15 Min PRN Roberto Freedman MD Or dextrose 50 % solution 12.5 g 12.5 g Intravenous Q15 Min PRN Roberto Freedman MD 12.5 g at 10/23/25 1748 Or dextrose 50 % solution 25 g 25 g Intravenous Q15 Min PRN Roberto Freedman MD Or glucagon (GLUCAGEN) injection 1 mg 1 mg Intramuscular Daily PRN Roberto Freedman MD diclofenac (VOLTAREN) 1 % gel 2 g 2 g Topical 4x Daily Roberto Freedman MD 2 g at 10/24/25 0826 [Provider Held] docusate sodium (COLACE) capsule 100 mg 100 mg Oral BID Roberto Freedman MD 100 mg at 10/25/25 1018 [Provider Held] ferrous sulfate EC tablet 325 mg 325 mg Oral Daily Roberto Freedman MD 325 mg at112/26/24 1018 [Provider Held] gabapentin (NEURONTIN) capsule 300 mg 300 mg Oral TID Kelly Pérez MD 300 mg at 10/25/25 1417 [Provider Held] haloperidol (HALDOL) tablet 2.5 mg 2.5 mg Oral BID Roberto Freedman MD 2.5 mg at112/26/24 1050 heparin (porcine) 5000 unit/mL injection 5,000 Units 5,000 Units Subcutaneous Q8H [facility] Kelly Pérez MD 5,000 Units at 10/26/25 0505 HYDROmorphone (DILAUDID) injection 0.5 mg 0.5 mg Intravenous Q3H PRN Kelly Pérez MD 0.5 mg at 10/26/25 1411 HYDROmorphone (DILAUDID) injection 0.8 mg 0.8 mg Intravenous Q3H PRN Kelly Pérez MD HYDROmorphone (DILAUDID) injection 1 mg 1 mg Intravenous Q3H PRN Kelly Pérez MD [Provider Held] hydrOXYzine HCl (ATARAX) tablet 50 mg 50 mg Oral Q6H PRN Roberto Freedman MD insulin lispro (HumaLOG/ADMELOG) 100 units/mL injection 1-5 Units 1-5 Units Subcutaneous Q4H RACHEL Roberto Freedman MD 1 Units at 10/26/25 0521 [Provider Held] levothyroxine (SYNTHROID, LEVOTHROID) tablet 200 mcg 200 mcg Oral Daily 6AM Kelly Pérez MD 200 mcg at 10/25/25 0504 [Provider Held] lisinopril (PRINIVIL,ZeSTRIL) tablet 2.5 mg 2.5 mg Oral Daily Roberto Freedman MD [Provider Held] loratadine (CLARITIN) tablet 10 mg 10 mg Oral QAM Roberto Freedman MD [Provider Held] montelukast (SINGULAIR) tablet 10 mg 10 mg Oral Nightly Roberto Freedman MD 10 mg at 10/24/25 2149 naloxone (NARCAN) 0.4 mg/mL injection 0.4 mg 0.4 mg Intravenous Q5 Min PRN Kelly Pérez MD ondansetron (ZOFRAN) injection 4 mg 4 mg Intravenous Q6H PRN Kelly Pérez MD [Provider Held] oxyCODONE (ROXICODONE) immediate release tablet 10 mg 10 mg Oral Q3H PRN Kelly Pérez MD [Provider Held] oxyCODONE (ROXICODONE) immediate release tablet 5 mg 5 mg Oral Q3H PRN Kelly Pérez MD 5 mg at 10/26/25 0947 [Provider Held] PANTOprazole (PROTONIX) EC tablet 40 mg 40 mg Oral Daily Roberto Freedman MD 40 mg at 10/25/25 1018 simethicone (MYLICON) chewable tablet 80 mg 80 mg Oral Q6H PRN Kelly Pérez MD [Provider Held] sucralfate (CARAFATE) tablet 1 g 1 g Oral 4x daily Roberto Freedman MD 1 g at 10/25/25 1057 [2] No Known Allergies * Shira Stark RN - 10/26/2025 11:41 AM EST 10/26/25 1138 General Information Admission Type inpatient Arrived From Hospital ([facility]) Referral Source admission list Reason for Consult discharge planning Initial Information Source of Information family;health record Living Environment People in Home child(jolanta), adult;spouse Primary Care Provided by self Provides Primary Care For no one Family Caregiver if Needed spouse Able to Return to Prior Arrangements yes Resource/Environmental Concerns Transportation Concerns none Functional Status, IADL Medications independent Meal Preparation independent Housekeeping independent Laundry independent Shopping assistive person IADL Comments Public transport Housing Stability In the last 12 months, was there a time when you were not able to pay the mortgage or rent on time?N In the past 12 months, how many times have you moved where you were living? 0 At any time in the past 12 months, were you homeless or living in a longterm (including now)? N Food Insecurity Within the past 12 months, you worried that your food would run out before you got the money to buymore. Never true Within the past 12 months, the food you bought just didn't last and you didn't have money to get more. Never true Transportation Needs In the past 12 months, has lack of transportation kept you from medical appointments or from getting medications? no In the past 12 months, has lack of transportation kept you from meetings, work, or from getting things needed for daily living? No Utilities In the past 12 months has the [place], gas, oil, or water [place] threatened to shut off services in your home? No Interpersonal Safety Within the last year, have you been humiliated or emotionally abused in other ways by anyone? No Within the last year, have you been kicked, hit, slapped, or otherwise physically hurt by anyone? No Discharge Needs Assessment Readmission Within the Last 30 Days no previous admission in last 30 days Patient/Family Anticipates Transition to home with family Transportation Anticipated public transportation;family or friend will provide Discharge Coordination/Tasks Status W10 Form Completed? Started PASRR Completed No Level of Care Completed No Plan Plan Home with family Patient/Family in Agreement with Plan yes * Germaine Fernandez MD - 10/26/2025 8:15 AM EST General Surgery Progress Note Assessment & Plan Assessment: Sis Valdez is a 55 y.o. 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 She is currently afebrile and hemodynamically stable. On 2 L nasal cannula. Abdomen is soft, appropriately tender, minimally distended with surgical dressing CDI. Ostomy is pink, patent, and functioning with minimal amounts of gas. Plan(s): - Awaiting return of consistent bowel function - N.p.o./IV fluids - She will need ostomy teaching prior to discharge - Monitor vitals / strict I&Os - Encourage OOB / ambulation / frequent IS - Rest of care per primary team - Please contact red surgery with any questions VTE Time Out Caprini SCORE: 7 (10/25/2025 9:06 PM) Interpretation - High Risk Chemical Prophylaxis heparin (porcine) 5000 unit/mL injection 5,000 Units Subcutaneous Every 8 hours scheduled Heparin Sodium (Porcine) 5000 Units Last dose 10/25/2025 5:01 AM Heparin (Porcine) in NaCl, Heparin Sodium (Porcine) 5000 Units Last dose 10/25/2025 4:10 PM Heparin Sodium (Porcine) 5000 Units Last dose 10/26/2025 5:05 AM Mechanical Prophylaxis SCDs are ordered - Bilateral (Knee High) Subjective No acute events overnight. Patient was oriented only to self this morning, so subjective exam limited. Objective Last Vitals Pulse:92,Resp:14,BP:(!) 147/71,SpO2:97 %,Weight:96.6 kg (212 lb 15.4 oz) Temp Last 24 hrs: Temp Min: 97.5 ??F (36.4 ??C) Max: 98.5 ??F (36.9 ??C) Last temp: 98.2 ??F (36.8 ??C) (Tympanic) Diet NPO; Meds Date 10/25/25 07 - 10/26/25 0659 10/26/25 07 - 10/27/25 0659 Shift [id number] 7418-8232 5081-4572 24 Hour Total 8700-8794 0672-5234 5490-0319 24 Hour Total INTAKE P.O. 120 120 I.V.(mL/kg) 115(1.2) 2510(26) 5(0.1) 2630(27.2) IV Piggyback 100 100 Shift Total(mL/kg) 335(3.5) 2510(26) 5(0.1) 2850(29.5) OUTPUT Urine(mL/kg/hr) 925(1.2) 850(1.1) 925(1.2) 2700(1.2) Other 245 135 380 Blood 100 100 Shift Total(mL/kg) 925(9.6) 1195(12.4) 1060(11) 3180(32.9) Weight (kg) 96.6 96.6 96.6 96.6 96.6 96.6 96.6 96.6 Physical Exam Gen: Resting comfortably, NAD HEENT: atraumatic, normocephalic CVS: Regular heart rate Pulm: Normal respiratory effort on 2LNC Abd: Soft, appropriately tender, minimally distended. Surgical dressing CDI. Ostomy pink, patent, functioning with minimal amounts of air. Skin: Warm and dry. Labs: White Blood Cell Count Date Value Ref Range Status 10/26/2025 37.5 (HH) 4.0 - 11.0 Thou/uL Final Comment: Results verified by smear review. Hemoglobin Date Value Ref Range Status 10/26/2025 7.6 (L) 11.7 - 15.7 g/dL Final Hematocrit Date Value Ref Range Status 10/26/2025 23.1 (L) 35.0 - 47.0 % Final Platelet Count Date Value Ref Range Status 10/26/2025 465 (H) 150 - 450 Thou/uL Final Lab Results Component Value Date NA 145 10/26/2025 K 4.1 10/26/2025 CL 111 (H) 10/26/2025 CO2 22 10/26/2025 BUN 15 10/26/2025 CREAT 1.30 (H) 10/26/2025 GLUC 127 (H) 10/26/2025 GLUC 171 (H) 10/26/2025 Lab Results Component Value Date CALCIUM 8.4 (L) 10/26/2025 MG 1.5 (L) 10/26/2025 PHOS 4.4 10/26/2025 Imaging Studies XR Abdomen 1 view-Portable Result Date: 10/25/2025 EXAMINATION: XR ABDOMEN KUB CLINICAL INDICATION: incorrect count COMPARISON: None available. TECHNIQUE: AP view of the abdomen. FINDINGS: There is a surgical probe overlying the pelvis/vagina. Bilateral nephrostomy tube catheters are noted. 3 pelvic surgical drains are noted. Surgical probe overlying the pelvis/vagina, please remove and repeat films. Report communicated intraoperatively to Dr. Alicia at 8:[address] Abdomen+pelvis w/contrast Result Date: 10/25/2025 EXAMINATION: CT ABDOMEN AND PELVIS WITH CONTRAST CLINICAL INFORMATION: Concern for bowel perforation COMPARISON: 10/22/2025 TECHNIQUE: Contiguous axial images were obtained through the abdomen and pelvis after administration of contrast 60 mL of Omnipaque 350. Coronal and sagittal reformations wereperformed. Oral contrast was not administered. Iodinated contrast, diluted in 1-10 solution was injected directly into the drains. 10 mL of contrast was evidently injected into the left lower quadrant drain which elucidated pain. 20 mL of contrast solution was injected into the right transgluteal drain. Following the first and an additional 50 mL of dilute contrast solution was injected into the perirectal drain and a secondary CT of the pelvis only was performed. This CT examination was performed using dose optimization techniques as appropriate, variously including the following: *Automatedexposure control *Adjustment of mA and/or kV according to patient size (this includes techniques orstandardized protocols for targeted exams where dose is matched to indication/reason for exam; i.e. extremities or head) *Use of iterative reconstruction technique DLP: 630.46 mGy- cm, followed by 540.17 mGy-cm FINDINGS: LUNG BASES: The visualized lung bases are clear. LIVER: Homogeneous in attenuation. Normal in size. No focal lesion. GALLBLADDER: Status post cholecystectomy with surgical clips in the gallbladder fossa. BILIARY SYSTEM: No intrahepatic or extrahepatic biliary ductal dilation. PANCREAS: Homogeneous in attenuation. No pancreatic ductal dilatation. No focal lesion. SPLEEN: Upper limits of normal in size measuring 12 cm in the longest dimension. ADRENAL GLANDS: No focal nodule. KIDNEYS/BLADDER: Bilateral kidneys demonstrate symmetric enhancement. Bilateral nephrostomy tubes inplace with pigtails in the renal pelvis. Interval resolution of severe bilateral hydroureteronephrosis. GASTROINTESTINAL: Redemonstration of inflammatory changes along the distal sigmoid and rectum. In the proximal rectum there is fistulous communication with the adjacent abscess cavity best delineated on sagittal views (series 602 image 76 and 77). APPENDIX: The appendix is seen in its entirety a nd is unremarkable. PERITONEUM: No pneumoperitoneum. No ascites. No intra- abdominal fluid collection. LYMPH NODES: No pathologically enlarged abdominal or pelvic lymph nodes. PELVIC STRUCTURES: Redemonstration of right adnexal abscess, confirmed pyosalpinx with interval decrease size status post left lower quadrant approach small pigtail catheter placement.. The structure now measures 6.2 x 4.6 x4.5 cm , previously 10.9 x 4.9 x 6.6 cm. Medially adjacent to this is a pocket of air filled collection that is continuous with the perirectal abscess. The perirectal abscess is status post right transgluteal pigtail catheter placement and measures measures 9.6 x 4.1 x 5.7 cm (series 602 image 74).This abscess shows a fistulous communication with the adjacent rectum as described above. SOFT TISSUES: No significant hernia visualized. MUSCULOSKELETAL: Multilevel degenerative changes of the spine. 1. Redemonstration of right adnexal abscess, confirmed pyosalpinx with interval decrease size status post left lower quadrant approach small pigtail catheter placement. 2. Air and fluid-filled perirectal abscess is status post right transgluteal pigtail catheter placement and measures 9.6 x 4.1 x 5.7 cm This abscess shows a fistulous communication with the adjacent rectum. 3. Bilateral nephrostomy tubes in place with pigtails in the renal pelvis. Interval resolution of severe bilateral hydroureteronephrosis. Findings communicated with general surgery team at the time of the scan. Fleischner guidelines were followed. Other testing: N/A Electronically Signed Germaine Fernandez DO, MS 10/26/2025 8:15 AM General Surgery PGY-2 * Mare Cruz MD - 10/26/2025 7:40 AM EST Gynecology Oncology Progress Note Assessment & Plan 55 y.o. admitted as a transfer from outside hospital due to worsening TOA status post IR guided placement of bilateral PCN and intra-abdominal drains now POD#1 s/p exploratory laparotomy, abdominal washout, loop colostomy and flex sigmoidoscopy for TOA and rectal fistula. Continues to have some alteration in mental status, but no other focal neurological signs. Overall seems to be improving compared to evaluation overnight. Plan Neuro: New altered mental status postoperatively. Patient only oriented to self and not following commands. Needing restraints overnight. Not tolerating PO, may need to consider swallow eval. Medications transitioned to IV. Medicine consult placed for new AMS, to be seen this morning. MMPR with IV Tylenol and Dilaudid PRN. Holding NSAIDs due to MADELINE. Holding home abilify, buproprion, gabapentin, baclofen, haldol, synthroid CV/Pulm: COPD on 2L NC at baseline Holding home crestor, ASA, lisinopril. Heme: AM labs ordered ID: Antibiotics transitioned from Zosyn to CTX/Flagyl per ID Trend WBC, most recently 37.5 this AM, likely increased in postoperative setting GI: NPO, IVF at 100cc/h, advance per surgery Surgery following, appreciate recommendations : Petty in, bilateral PCNs in place. Strict I/Os Endocrine T2DM, FS/ISS. FS q4h while NPO. Drains: New Juan drain placed in left adnexa abscess bed anterior to existing 10 Fr mini loop drain placedby IR on 10/23, exiting through right lower quadrant Existing 12 Fr drain placed in presacral abscess (right transgluteal) Existing 10 Fr mini loop drain in left adnexa Existing bilateral 10 Fr percutaneous nephrosotomy tubes DVT ppx: Encourage ambulation, SCDs on and in place, heparin Dispo: continue inpatient management Mare Cruz MD PGY4 [facility] Resident 10/26/2025 7:40 AM (p) [phone] Subjective Patient reporting pain. Has not yet ambulated. Petty catheter in place. Gas in ostomy. Denies chestpain, shortness of breath, nausea, vomiting. Objective Physical exam Last Vitals: Vitals: 10/26/25 0458 BP: 136/62 Pulse: (!) 102 Resp: 17 Temp: SpO2: 98% Weight: Height: Intake/Output Summary (Last 24 hours) at 10/26/2025 0740 Last data filed at 10/26/2025 0600 Gross per 24 hour Intake 2850 ml Output 3180 ml Net -330 ml Gen: No apparent distress, alert and oriented x1 (to person, not to time or place) Pulm: No increased work of breathing Abd: Soft, appropriately tender predominantly in LLQ, non-distended, no rebound or guarding; RLQ and LLQ drains with serosanguinous output; right gluteal drain with feculent/serosanguinous output; PCNs with blood tinged urine; ostomy with gas Incisions: Clean, dry, intact with dressing. No surrounding erythema, induration, drainage Ext: calves equal and nontender; upper extremities in soft restraints Labs: Recent Results (from the past 24 hours) POCT Glucose, Fingerstick Collection Time: 10/25/25 8:42 AM Specimen: Blood Result Value Ref Range POC Glucose 110 (H) 65 - 99 mg/dL POCT Glucose, Fingerstick Collection Time: 10/25/25 1:56 PM Specimen: Blood Result Value Ref Range POC Glucose 149 (H) 65 - 99 mg/dL POCT Glucose, Fingerstick Collection Time: 10/25/25 9:12 PM Specimen: Blood Result Value Ref Range POC Glucose 224 (H) 65 - 99 mg/dL POCT Glucose, Fingerstick Collection Time: 10/26/25 12:12 AM Specimen: Blood Result Value Ref Range POC Glucose 246 (H) 65 - 99 mg/dL Basic Metabolic Panel Collection Time: 10/26/25 3:57 AM Specimen: Blood Result Value Ref Range Glucose 171 (H) 65 - 99 mg/dL Blood Urea Nitrogen (BUN) 15 8 - 21 mg/dL Creatinine 1.30 (H) 0.40 - 1.10 mg/dL eGFR 49 (L) >59 Sodium 145 136 - 145 mmol/L Potassium 4.1 3.4 - 5.3 mmol/L Chloride 111 (H) 98 - 107 mmol/L CO2 22 22 - 33 mmol/L Anion Gap 12 7 - 17 Calcium 8.4 (L) 8.7 - 10.5 mg/dL BUN/Creatinine Ratio 12 10.0 - 25.0 Ratio COMPLETE BLOOD COUNT, WITHOUT DIFFERENTIAL Collection Time: 10/26/25 3:57 AM Specimen: Blood Result Value Ref Range White Blood Cell Count 37.5 (HH) 4.0 - 11.0 Thou/uL Platelet Count 465 (H) 150 - 450 Thou/uL Hemoglobin 7.6 (L) 11.7 - 15.7 g/dL Hematocrit 23.1 (L) 35.0 - 47.0 % Red Blood Cell Count 2.92 (L) 4.00 - 5.40 Mil/uL MCV 79 (L) 80 - 100 fL MCH 26.0 (L) 27.0 - 31.0 pg MCHC 32.9 30.0 - 36.0 g/dL RDW 16.3 (H) 11.5 - 14.5 % MPV 9.5 7.5 - 12.5 fL nRBC 0.1 0.0 - 0.1 /100 WBC nRBC, Absolute 0.02 0.00 - 0.02 Thou/uL Phosphorus Collection Time: 10/26/25 3:57 AM Specimen: Blood Result Value Ref Range Phosphorus 4.4 2.7 - 4.5 mg/dL Magnesium Collection Time: 10/26/25 3:57 AM Specimen: Blood Result Value Ref Range Magnesium 1.5 (L) 1.6 - 2.7 mg/dL POCT Glucose, Fingerstick Collection Time: 10/26/25 5:20 AM Specimen: Blood Result Value Ref Range POC Glucose 166 (H) 65 - 99 mg/dL * Arvin Cardenas MD - 10/26/2025 5:11 AM EST Daily General Surgery Progress Note Assessment & Plan Pt is a 55 y.o. female who is now pod#1 s/p ex lap + abdominal washout + drainage of known pelvic abscesses along with flexible sigmoidoscopy and loop colostomy for tubo-ovarian abscess complicated by rectal fistula. Is recovering appropriately post operatively aside from post operative confusion which is now improved. Plan Final plans pending attending attestation - Diet: npo for now w/ ivf - Pain: multimodal pain control with tylenol and narcotics - Strict I/o for ir drains - Rest of care per primary team Principal Problem: Sepsis (HCC) (POA: Unknown) Active Problems: Type 2 diabetes mellitus (HCC) (POA: Yes) Schizophrenia (HCC) (POA: Yes) Postoperative hypothyroidism (POA: Yes) Obstructive sleep apnea syndrome (POA: Yes) Gastroesophageal reflux disease (POA: Yes) Hyperlipidemia (POA: Yes) Hypertension (POA: Yes) Chronic obstructive lung disease (HCC) (POA: Yes) Bipolar disorder (HCC) (POA: Yes) Tubo-ovarian abscess (POA: Unknown) Urinary tract infection (POA: Unknown) MADELINE (acute kidney injury) (POA: Unknown) Anemia (POA: Unknown) Hypocalcemia (POA: Unknown) Hypokalemia (POA: Unknown) High anion gap metabolic acidosis (POA: Unknown) Ureteral obstruction (POA: Yes) Resolved Problems: Subjective No acute events overnight. Is more alert and oriented. Pain is well controlled. No significant n/v/d/cp/sob. Objective Last Vitals Pulse:96,Resp:(!) 21,BP:124/60,SpO2:97 %,Weight:96.6 kg (212 lb 15.4 oz) Temp Last 24 hrs: Temp Min: 97.5 ??F (36.4 ??C) Max: 98.5 ??F (36.9 ??C) Last temp: 98.2 ??F (36.8 ??C) (Tympanic) Intake/Output Summary (Last 24 hours) at 10/26/2025 0511 Last data filed at 10/26/2025 0400 Gross per 24 hour Intake 2856 ml Output 3390 ml Net -534 ml Physical Exam Gen: alert, no acute distress Card: regular rate, normotensive Pulm: normal effort of breathing with no signs of acute respiratory distress Abd: soft, non-distended, appropriately tender to palpation. No peritonitic signs. 2x nephrostomy tubes in place w/ dusky urine output. Right gluteal drain w/ modest serosanguinous output. Abdominal drains in place and cdi, also w/ serosanguinous output R>L Skin: warm and dry with no erythema VTE Time Out Caprini SCORE: 7 (10/25/2025 9:06 PM) Interpretation - High Risk Chemical Prophylaxis heparin (porcine) 5000 unit/mL injection 5,000 Units Subcutaneous Every 8 hours scheduled [ORDER ONHOLD or LAST DOSE HELD - Please Review] heparin (porcine) 5000 unit/mL injection 5,000 Units Subcutaneous Every 8 hours scheduled Heparin Sodium (Porcine) 5000 Units Last dose 10/25/2025 5:01 AM Heparin (Porcine) in NaCl, Heparin Sodium (Porcine) 5000 Units Last dose 10/25/2025 4:10 PM Heparin Sodium (Porcine) 5000 Units Last dose 10/26/2025 5:05 AM Mechanical Prophylaxis SCDs are ordered - Bilateral (Knee High) Labs: White Blood Cell Count Date Value Ref Range Status 10/26/2025 37.5 (HH) 4.0 - 11.0 Thou/uL Final Comment: Results verified by smear review. Hemoglobin Date Value Ref Range Status 10/26/2025 7.6 (L) 11.7 - 15.7 g/dL Final Hematocrit Date Value Ref Range Status 10/26/2025 23.1 (L) 35.0 - 47.0 % Final Platelet Count Date Value Ref Range Status 10/26/2025 465 (H) 150 - 450 Thou/uL Final Lab Results Component Value Date NA 145 10/26/2025 K 4.1 10/26/2025 CL 111 (H) 10/26/2025 CO2 22 10/26/2025 BUN 15 10/26/2025 CREAT 1.30 (H) 10/26/2025 GLUC 171 (H) 10/26/2025 GLUC 246 (H) 10/26/2025 Lab Results Component Value Date CALCIUM 8.4 (L) 10/26/2025 MG 1.5 (L) 10/26/2025 PHOS 4.4 10/26/2025 Lab Results Component Value Date AST 56 (H) 10/22/2025 ALT 28 10/22/2025 ALKPHOS 125 (H) 10/22/2025 BILITOT 0.3 10/22/2025 ALBUMIN 3.5 10/22/2025 PROT 7.2 10/22/2025 Lab Results Component Value Date LIPASE 32 10/22/2025 Lab Results Component Value Date PTT 26 10/22/2025 LABPROT 15.0 (H) 10/22/2025 INR 1.3 10/22/2025 Imaging Studies XR Abdomen 1 view-Portable Result Date: 10/25/2025 EXAMINATION: XR ABDOMEN KUB CLINICAL INDICATION: incorrect count COMPARISON: None available. TECHNIQUE: AP view of the abdomen. FINDINGS: There is a surgical probe overlying the pelvis/vagina. Bilateral nephrostomy tube catheters are noted. 3 pelvic surgical drains are noted. Surgical probe overlying the pelvis/vagina, please remove and repeat films. Report communicated intraoperatively to Dr. Alicia at 8:[address] Abdomen+pelvis w/contrast Result Date: 10/25/2025 EXAMINATION: CT ABDOMEN AND PELVIS WITH CONTRAST CLINICAL INFORMATION: Concern for bowel perforation COMPARISON: 10/22/2025 TECHNIQUE: Contiguous axial images were obtained through the abdomen and pelvis after administration of contrast 60 mL of Omnipaque 350. Coronal and sagittal reformations wereperformed. Oral contrast was not administered. Iodinated contrast, diluted in 1-10 solution was injected directly into the drains. 10 mL of contrast was evidently injected into the left lower quadrant drain which elucidated pain. 20 mL of contrast solution was injected into the right transgluteal drain. Following the first and an additional 50 mL of dilute contrast solution was injected into the perirectal drain and a secondary CT of the pelvis only was performed. This CT examination was performed using dose optimization techniques as appropriate, variously including the following: *Automatedexposure control *Adjustment of mA and/or kV according to patient size (this includes techniques orstandardized protocols for targeted exams where dose is matched to indication/reason for exam; i.e. extremities or head) *Use of iterative reconstruction technique DLP: 630.46 mGy- cm, followed by 540.17 mGy-cm FINDINGS: LUNG BASES: The visualized lung bases are clear. LIVER: Homogeneous in attenuation. Normal in size. No focal lesion. GALLBLADDER: Status post cholecystectomy with surgical clips in the gallbladder fossa. BILIARY SYSTEM: No intrahepatic or extrahepatic biliary ductal dilation. PANCREAS: Homogeneous in attenuation. No pancreatic ductal dilatation. No focal lesion. SPLEEN: Upper limits of normal in size measuring 12 cm in the longest dimension. ADRENAL GLANDS: No focal nodule. KIDNEYS/BLADDER: Bilateral kidneys demonstrate symmetric enhancement. Bilateral nephrostomy tubes inplace with pigtails in the renal pelvis. Interval resolution of severe bilateral hydroureteronephrosis. GASTROINTESTINAL: Redemonstration of inflammatory changes along the distal sigmoid and rectum. In the proximal rectum there is fistulous communication with the adjacent abscess cavity best delineated on sagittal views (series 602 image 76 and 77). APPENDIX: The appendix is seen in its entirety and is unremarkable. PERITONEUM: No pneumoperitoneum. No ascites. No intra-abdominal fluid collection. LYMPH NODES: No pathologically enlarged abdominal or pelvic lymph nodes. PELVIC STRUCTURES: Redemonstration of right adnexal abscess, confirmed pyosalpinx with interval decrease size status post left lower quadrant approach small pigtail catheter placement.. The structure now measures 6.2 x 4.6 x4.5 cm , previously 10.9 x 4.9 x 6.6 cm. Medially adjacent to this is a pocket of air filled collection that is continuous with the perirectal abscess. The perirectal abscess is status post right transgluteal pigtail catheter placement and measures measures 9.6 x 4.1 x 5.7 cm (series 602 image 74).This abscess shows a fistulous communication with the adjacent rectum as described above. SOFT TISSUES: No significant hernia visualized. MUSCULOSKELETAL: Multilevel degenerative changes of the spine. 1. Redemonstration of right adnexal abscess, confirmed pyosalpinx with interval decrease size status post left lower quadrant approach small pigtail catheter placement. 2. Air and fluid-filled perirectal abscess is status post right transgluteal pigtail catheter placement and measures 9.6 x 4.1 x 5.7 cm This abscess shows a fistulous communication with the adjacent rectum. 3. Bilateral nephrostomy tubes in place with pigtails in the renal pelvis. Interval resolution of severe bilateral hydroureteronephrosis. Findings communicated with general surgery team at the time of the scan. Fleischner guidelines were followed. Arvin Cardenas MD Resident, PGY1 Available on [facility] Cosigned by Ignacio Galarza MD at 10/27/2025 12:48 PM EST * Kelly Pérez MD - 10/26/2025 4:18 AM EST [facility] Progress Note Note entry delayed due to patient care, patient seen at 4a Assessment & Plan Assessment 55 y.o. admitted as a transfer from outside hospital due to worsening TOA status post IR guided placement of bilateral PCN and intra-abdominal drains now POD#1 s/p exploratory laparotomy, abdominal washout, loop colostomy and flex sigmoidoscopy for TOA and rectal fistula. Plan Neuro: New altered mental status postoperatively. Patient only oriented to self and not following commands. Needing restraints overnight. Not tolerating PO, may need to consider swallow eval. Medications transitioned to IV. Medicine consult placed for new AMS, to be seen this morning. MMPR with IV Tylenol and Dilaudid PRN. Holding NSAIDs due to MADELINE. Holding home abilify, buproprion, gabapentin, baclofen, haldol, synthroid CV/Pulm: COPD on 2L NC at baseline Holding home crestor, ASA, lisinopril. Heme: AM labs ordered ID: Antibiotics transitioned from Zosyn to CTX/Flagyl per ID Trend WBC, most recently 37.5 this AM, likely increased in postoperative setting GI: NPO, IVF at 100cc/h, advance per surgery Surgery following, appreciate recommendations : Petty in, bilateral PCNs in place diuresing initially bloody now clear urine. Strict I/Os Endocrine T2DM, FS/ISS. FS q4h while NPO. Drains: New Juan drain placed in left adnexa abscess bed anterior to existing 10 Fr mini loop drain placedby IR on 10/23, exiting through right lower quadrant Existing 12 Fr drain placed in presacral abscess (right transgluteal) Existing 10 Fr mini loop drain in left adnexa Existing bilateral 10 Fr percutaneous nephrosotomy tubes DVT ppx: Encourage ambulation, SCDs on and in place, heparin Dispo: continue inpatient management Signed Kelly Pérez MD [facility] OBGYN PGY-4 10/26/2025 4:18 AM (p) [phone] Subjective Does not appear in pain. Only oriented to self. Does not follow commands. Objective Physical exam Last Vitals: Vitals: 10/26/25 0400 BP: 124/60 Pulse: 96 Resp: (!) 21 Temp: 98.2 ??F (36.8 ??C) SpO2: 97% Weight: Height: Intake/Output Summary (Last 24 hours) at 10/26/2025 0418 Last data filed at 10/26/2025 0000 Gross per 24 hour Intake 2851 ml Output 2978 ml Net -127 ml Gen: Alert to self only Pulm: No increased work of breathing Abd: Soft, no tenderness to palpation, nondistended, no rebound tenderness or guarding. Midline vertical incision reapproximated with humza and covered by island dressing, inferior aspect reinforced with tape. Ext: Calves equal, non-tender to palpation, no edema Labs: Recent Results (from the past 24 hours) POCT Glucose, Fingerstick Collection Time: 10/25/25 4:24 AM Specimen: Blood Result Value Ref Range POC Glucose 148 (H) 65 - 99 mg/dL Basic Metabolic Panel (Early AM) Collection Time: 10/25/25 5:46 AM Specimen: Blood Result Value Ref Range Glucose 129 (H) 65 - 99 mg/dL Blood Urea Nitrogen (BUN) 20 8 - 21 mg/dL Creatinine 1.59 (H) 0.40 - 1.10 mg/dL eGFR 39 (L) >59 Sodium 141 136 - 145 mmol/L Potassium 3.3 (L) 3.4 - 5.3 mmol/L Chloride 106 98 - 107 mmol/L CO2 22 22 - 33 mmol/L Anion Gap 13 7 - 17 Calcium 8.7 8.7 - 10.5 mg/dL BUN/Creatinine Ratio 13 10.0 - 25.0 Ratio Complete Blood Count WITHOUT Differential - Early AM Collection Time: 10/25/25 5:46 AM Specimen: Blood Result Value Ref Range White Blood Cell Count 24.3 (H) 4.0 - 11.0 Thou/uL Platelet Count 482 (H) 150 - 450 Thou/uL Hemoglobin 7.8 (L) 11.7 - 15.7 g/dL Hematocrit 24.0 (L) 35.0 - 47.0 % Red Blood Cell Count 3.06 (L) 4.00 - 5.40 Mil/uL MCV 78 (L) 80 - 100 fL MCH 25.5 (L) 27.0 - 31.0 pg MCHC 32.5 30.0 - 36.0 g/dL RDW 16.5 (H) 11.5 - 14.5 % MPV 9.7 7.5 - 12.5 fL nRBC 0.1 0.0 - 0.1 /100 WBC nRBC, Absolute 0.02 0.00 - 0.02 Thou/uL POCT Glucose, Fingerstick Collection Time: 10/25/25 8:42 AM Specimen: Blood Result Value Ref Range POC Glucose 110 (H) 65 - 99 mg/dL POCT Glucose, Fingerstick Collection Time: 10/25/25 1:56 PM Specimen: Blood Result Value Ref Range POC Glucose 149 (H) 65 - 99 mg/dL POCT Glucose, Fingerstick Collection Time: 10/25/25 9:12 PM Specimen: Blood Result Value Ref Range POC Glucose 224 (H) 65 - 99 mg/dL POCT Glucose, Fingerstick Collection Time: 10/26/25 12:12 AM Specimen: Blood Result Value Ref Range POC Glucose 246 (H) 65 - 99 mg/dL * Kelly Pérez MD - 10/26/2025 12:14 AM EST Brief Progress Note In to assess patient postoperatively. Per RN, since in PACU she has been persistently confused and oriented to name only. She does not appear to be in pain and is moving all extremities spontaneously. Only occasionally responds to name and does not answer questions appropriately. Also incontinent of stool. Small amount of serosanguineous drainage on inferior aspect of midline vertical incision. Dressing partially lifting from inferior aspect given patient actively rolling around, will reevaluate later this evening and replace as needed. Unclear reason for patient confusion, suspect may be reaction to anesthesia, do not think she needs imaging at this point. Discussed with Dr. Alfaro. Signed Kelly Pérez MD [facility] OBGYN PGY-4 10/26/2025 12:21 AM (p) [phone] * Jenny Sanches MD - 10/25/2025 5:15 PM EST Brief ID note Patient is in OR this afternoon. Reviewed previous culture that grew E.coli and S.constellatus I've changed her antibiotics to IV ceftriaxone 2g q24hr and PO Flagyl 500mg BID. Please send OR cultures. ID will follow. Jenny Sanches MD * Liliana Brown RN - 10/25/2025 11:51 AM EST Assumed care 0730. A&Ox4. Drains emptied. Providers were asked twice to place drain care orders. Pt able to ambulate assist x1 with GB. Continues on IV ABX. K replacement given. No concerns at this time. * Ama Swenson MD - 10/25/2025 11:35 AM EST Progress Note Hospital Day: 4, Admit Date: 10/22/2025 Assessment and plan: Ms. Valdez is a 55 y.o. female with past medical history of HTN, HLD, T2DM, DANIEL, COPD (2 L NC at night), schizophrenia, bipolar disorder, papillary thyroid carcinoma s/p thyroidectomy, NSCLC s/p LLL resection (02/2025), abnormal uterine bleeding, and recent hospitalization in ICU for urosepsis and TOA who presented to [place] 10/22 for AMS and found to have sepsis likely secondary to re-accumulation of tubo-ovarian abscess, as well as possible urosepsis. Transferred to and admitted to [facility]. She is now status post bilateral PCN placement, tubo-ovarian abscess drainage. Assessment & Plan Sepsis (HCC) Tubo-ovarian abscess Urinary tract infection She is status post IR drainage and placement of left adnexal and presacral space drains on 10/23/2025. 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 MADELINE (acute kidney injury) Ureteral obstruction She is status post bilateral nephrostomy tube placement on 10/23/2025. - Urology following Schizophrenia (HCC) Bipolar disorder (HCC) - Resume gabapentin renally dose 300 mg 3 times daily - Continue Klonopin 1 mg twice daily as needed for anxiety - Continue home Abilify 20 mg daily, Wellbutrin 300 mg daily, Haldol 2.5 mg daily, baclofen 10 mg 3times daily Obstructive sleep apnea syndrome Chronic obstructive lung disease (HCC) On NC 2L at baseline. Hyperlipidemia Hypertension Type 2 diabetes mellitus (HCC) Has been normotensive and euglycemic. - Continue Lipitor 40 mg daily - Holding lisinopril 2.5 mg daily given MADELINE - Holding aspirin 81 mg nightly - POCT ACHS - Sliding scale I have updated the Patient and addressed their concerns. Quality metrics: # Telemetry: No Active Telemetry Order # Diet: Diet NPO; Meds # Code status: Full Code # Petty catheter: No Active Urethral Catheter (Petty) Order # Central lines: # Expected Date of Discharge: 10/25/2025 {Click to update VIK: [id number]} VTE Time Out VTE risk assessment NOT done - Click here to document Chemical Prophylaxis heparin (porcine) 5000 unit/mL injection 5,000 Units Subcutaneous Every 8 hours scheduled [ORDER ONHOLD or LAST DOSE HELD - Please Review] Heparin Sodium (Porcine) 5000 Units Last dose 10/25/2025 5:01 AM Mechanical Prophylaxis SCDs are ordered - Bilateral (Knee High) Patient declined SCD use, Please review Anti-infectives (From admission, onward) Start Dose/Rate Route Frequency Ordered Stop 10/25/25 1000 cefTRIAXone (ROCEPHIN) 2 g in sodium chloride-MBP (NS) 100 mL IVPB-MBP Indication: Intra-abdominal abscess 2 g 200 mL/hr over 30 Minutes Intravenous Every 24 hours 10/25/25 0949 10/25/25 1000 metroNIDAZOLE (FLAGYL) tablet 500 mg Indication: Intra-abdominal abscess 500 mg Oral Every 12 hours scheduled 10/25/25 0949 Subjective: Chief complaint Chief Complaint Patient presents with Abnormal Test Result Patient is being seen for acute medical problems and follow-up for chronic medical issues as mentioned in the assessment and plan above. # Event overnight: No acute events reported Ms. Valdez was seen earlier today. Patient felt asleep 2 times mid conversation. When asked to focus, she is oriented x3 and asnwers accordingly. Objective: Last 3 Filed Values 10/24/25 2359 10/25/25 0419 10/25/25 0603 BP: 120/72 98/61 (!) 147/80 Pulse: 93 78 75 Resp: 16 16 18 Temp: (!) 100.3 ??F (37.9 ??C) 98.4 ??F (36.9 ??C) 98.2 ??F (36.8 ??C) TempSrc: Tympanic Tympanic Tympanic SpO2: 95% 98% 100% SOFA Scores 10/24/25 0601 10/24/25 1800 10/25/25 0600 SOFA Score : 3 3 3 SpO2 Min: 94 % Max: 100 % O2 Device: room air (none) Flow (L/min) (Oxygen Therapy): 2 Weight: on admission: 96.6 kg (212 lb 15.4 oz), (10/22/2025 6:11 PM) Recent: 96.6 kg (212 lb 15.4 oz), (10/22/2025 10:15 PM) Last Documented Bowel Movement - 10/25/25 (10/25/25 0441) Intake/Output Summary (Last 24 hours) at 10/25/2025 1135 Last data filed at 10/25/2025 1019 Gross per 24 hour Intake 1746 ml Output 3741 ml Net -1995 ml Physical Exam Constitutional - ill appearing. not in acute distress. Cardiovascular - normal rate. Pulmonary - breath sounds present bilaterally. no wheezing and no crackles. Abdominal - soft. no distension and no tenderness. Drain are clean. Left adnexal drain with scant thick, purulent discharge. Presacral drain with brown feculent material. Bilateral percutaneous nephrostomy tubes draining pink-tinged urine. Skin - warm. no jaundice. Neurological - Oriented to name, place and time Scheduled medications 10/25/2025 11:35 AM As needed medications: ARIPiprazole, 20 mg, Oral, Daily ascorbic acid, 250 mg, Oral, Daily [Provider Held] aspirin enteric coated, 81 mg, Oral, Nightly atorvastatin, 40 mg, Oral, Nightly baclofen, 10 mg, Oral, TID buPROPion, 300 mg, Oral, QAM cefTRIAXone, 2 g, Intravenous, Q24H chlorhexidine gluconate, , Topical, Daily diclofenac, 2 g, Topical, 4x Daily docusate sodium, 100 mg, Oral, BID ferrous sulfate, 325 mg, Oral, Daily gabapentin, 300 mg, Oral, TID haloperidol, 2.5 mg, Oral, BID [Provider Held] heparin (porcine), 5,000 Units, Subcutaneous, Q8H RACHEL insulin lispro, 1-5 Units, Subcutaneous, Q4H RACHEL levothyroxine, 200 mcg, Oral, Daily 6AM [Provider Held] lisinopril, 2.5 mg, Oral, Daily [Provider Held] loratadine, 10 mg, Oral, QAM metroNIDAZOLE, 500 mg, Oral, Q12H RACHEL montelukast, 10 mg, Oral, Nightly PANTOprazole, 40 mg, Oral, Daily potassium chloride, 20 mEq, Oral, q2h sucralfate, 1 g, Oral, 4x daily acetaminophen albuterol clonazePAM glucose OR glucose OR dextrose OR dextrose OR glucagon [Provider Held] hydrOXYzine HCl loperamide polyethylene glycol Current infusions: Diagnostic studies: I have reviewed the labs and ordered new labs if needed. Recent Labs 10/22/25181710/23/25 0155 10/23/25 0822 10/24/25 0646 10/25/25 0546 WBC 26.9* 26.5* 26.1* 21.8* 24.3* HGB 7.0* 7.4* 7.6* 7.5* 7.8* HCT 21.6* 22.6* 23.6* 23.6* 24.0* PLT 389 390 425 422 482* Recent Labs 10/22/25181710/23/25 0822 10/24/25 0646 10/25/25 0546 NA 135* 134* 146* 141 K 3.2* 3.7 3.5 3.3* CO2 20* 21* 21* 22 CL 96* 101 111* 106 BUN 45* 43* 32* 20 CREAT 3.83* 3.12* 2.25* 1.59* CALCIUM 7.8* 8.0* 8.4* 8.7 MG -- 2.1 2.1 -- PHOS -- 4.5 -- -- BILITOT 0.3 -- -- -- ALKPHOS 125* -- -- -- AST 56* -- -- -- ALT 28 -- -- -- ALBUMIN 3.5 -- -- -- Recent Labs 10/22/251817 PTT 26 INR 1.3 No results for input(s): SARSCOV2 , INFLAV , INFLBV in the last 72 hours. Blood Culture Results Since Admission 10/22/25 Hospital Encounter Blood Culture Specimen: Blood, Peripheral Line Blood Result Value Status Culture Sterile after 2 days Preliminary Blood Culture Specimen: Blood, Peripheral Line Blood Result Value Status Culture Sterile after 2 days Preliminary Urine Culture Results Since Admission 10/22/25 Hospital Encounter Reflexive Urine Culture Collection Time: 10/22/25 6:19 PM Specimen: Straight Urinary Catheter Urine Result Value Status Culture Klebsiella pneumoniae 1000 col/mL (A) Preliminary *Note: Due to a large number of results and/or encounters for the requested time period, some results have not been displayed. A complete set of results can be found in Results Review. Ama Swenson MD Cosigned by Karen Scanlon DO at 10/25/2025 4:43 PM EST Associated attestation - Karen Scanlon DO - 10/25/2025 4:43 PM EST I have personally interviewed and examined the patient and reviewed Dr. Swenson's note. I agree with the history, exam, assessment and plan as detailed in the resident's note with the following additions/exceptions/observations. Patient seen earlier during rounds reports feeling fatigued but no other acute complaints. Was noted to have fecal output through her presacral drain this morning with concern for adequate source control needed. Repeat imaging performed consistent with right adnexal abscess confirmed pyosalpinx with interval decrease size status post left lower quadrant approach and small pigtail catheter. Air and fluid filled perirectal abscess status post right transgluteal pigtail catheter 9 x 4 x 5 cm with a fistulous communication with the adjacent rectum. Bilateral nephrostomy tubes with pigtail within the renal pelvis and interval resolution of severe bilateral hydro utero nephrosis. Patient still with intermittent fevers and significant leukocytosis. Plan per surgery and Gynonc to go to the OR for possible washout and further infection management of abscesses and possible fistula formation. * Malu David MD - 10/25/2025 6:05 AM EST [facility] Progress Note Assessment & Plan 55 y.o. patient with T2DM, thyroid cancer s/p resection, non-small cell lung cancer status post resection with COPD/DANIEL, hypothyroidism, hypertension admitted as a transfer from an outside hospital with concern for leukocytosis worsening of known Flagyl pelvic mass concerning for tubo-ovarian abscess now POD#2 from IR drain placement in the left adnexa and presacral medicine space. Clinically, patient has improvement in leukocytosis and remains afebrile with benign abdominal exam. On review of microbiology drain output at the outside hospital negative for malignancy and sterile after culture. Blood cultures remained sterile over the past 2 days. Concern for drain malpositioning versus enteric etiology of pre- sacral collection given repeat sacral drain sent for both cytology and microbiology and currently growing preliminary E. Coli with feculent drain output. RN team contacted to enter in drain outputs. - Agree with treatment of patient's multiple medical comorbidities per the primary team - Given the lack of response to aggressive antibiotic course, neoplasm remains on the differential.MRI was previously recommended and is being deferred until patient's kidney function can tolerate testing. Patient evaluated at the bedside with gynecology oncology team. Will await formal consult for more details. - Recommend urgent evaluation of pre-sacral drain positioning and consideration of evaluation by the general surgery/ colorectal surgery team. Primary team contacted. - Recommend NPO status immediately in the event that operative intervention is necessary - Hold all anticoagulation at this time in the event that operative intervention is necessary Please [facility] Gynecology with any questions or concerns Malu David MD, PGY-4 [facility] Master Certified Rv Technician Residency Program (p) [phone] 10/25/2025 6:05 AM Subjective Sis was very sleepy and fell asleep 3 times during her conversation. Was unable to contribute additional history but consented to an abdominal examination. Objective Physical exam Last Vitals: BP (!) 147/80 (BP Location: Left arm, Patient Position: Lying) Pulse 75 Temp 98.2 ??F (36.8 ??C) (Tympanic) Resp 18 Ht 1.721 m (5' 7.75 ) Wt 96.6 kg (212 lb 15.4 oz) SpO2 100% BMI 32.62kg/m?? Date 10/24/25 07 - 10/25/25 0659 10/25/25 07 - 10/26/25 0659 Shift 2764-1100 3199-4125 4482-8436 24 Hour Total 6727-4259 2435-1656 6361-5068 24 Hour Total INTAKE P.O. 812 069 8562 I.V.(mL/kg) 10(0.1) 10(0.1) 16(0.2) 36(0.4) Other 0 3 3 IV Piggyback 200 200 Shift Total(mL/kg) 370(3.8) 1170(12.1) 19(0.2) 1559(16.1) OUTPUT Urine(mL/kg/hr) 1425(1.8) 1550(2) 1250(1.6) 4225(1.8) Emesis/NG output 0 0 0 Other 45 13 58 Shift Total(mL/kg) 1470(15.2) 1563(16.2) 1250(12.9) 4283(44.3) Weight (kg) 96.6 96.6 96.6 96.6 96.6 96.6 96.6 96.6 Gen: Appears comfortable, in no acute distress, sleeping soundly Pulm: No increased work of breathing Abd: Softly distended, non-tender, no rebound or guarding Ext: Non-tender, no edema, no erythema, SCDs in place Drains: Bilateral percutaneous nephrostomy tubes draining pink-tinged urine, drain sites appear clean dry and intact, left adnexal drain with thick, stone, purulent discharge; presacral drain with brown feculent material Labs: Recent Results (from the past 24 hours) COMPLETE BLOOD COUNT, WITHOUT DIFFERENTIAL Collection Time: 10/24/25 6:46 AM Specimen: Blood Result Value Ref Range White Blood Cell Count 21.8 (H) 4.0 - 11.0 Thou/uL Platelet Count 422 150 - 450 Thou/uL Hemoglobin 7.5 (L) 11.7 - 15.7 g/dL Hematocrit 23.6 (L) 35.0 - 47.0 % Red Blood Cell Count 2.92 (L) 4.00 - 5.40 Mil/uL MCV 81 80 - 100 fL MCH 25.7 (L) 27.0 - 31.0 pg MCHC 31.8 30.0 - 36.0 g/dL RDW 16.3 (H) 11.5 - 14.5 % MPV 10.0 7.5 - 12.5 fL Basic Metabolic Panel Collection Time: 10/24/25 6:46 AM Specimen: Blood Result Value Ref Range Glucose 72 65 - 99 mg/dL Blood Urea Nitrogen (BUN) 32 (H) 8 - 21 mg/dL Creatinine 2.25 (H) 0.40 - 1.10 mg/dL eGFR 25 (L) >59 Sodium 146 (H) 136 - 145 mmol/L Potassium 3.5 3.4 - 5.3 mmol/L Chloride 111 (H) 98 - 107 mmol/L CO2 21 (L) 22 - 33 mmol/L Anion Gap 14 7 - 17 Calcium 8.4 (L) 8.7 - 10.5 mg/dL BUN/Creatinine Ratio 14 10.0 - 25.0 Ratio Magnesium Collection Time: 10/24/25 6:46 AM Specimen: Blood Result Value Ref Range Magnesium 2.1 1.6 - 2.7 mg/dL Vancomycin Level, Random Collection Time: 10/24/25 6:46 AM Specimen: Blood Result Value Ref Range Vancomycin, Random 14 mg/L Time of Last Dose Information not given POCT Glucose, Fingerstick Collection Time: 10/24/25 7:40 AM Specimen: Blood Result Value Ref Range POC Glucose 82 65 - 99 mg/dL POCT Glucose, Fingerstick Collection Time: 10/24/25 11:44 AM Specimen: Blood Result Value Ref Range POC Glucose 83 65 - 99 mg/dL POCT Glucose, Fingerstick Collection Time: 10/24/25 3:54 PM Specimen: Blood Result Value Ref Range POC Glucose 110 (H) 65 - 99 mg/dL POCT Glucose, Fingerstick Collection Time: 10/24/25 8:06 PM Specimen: Blood Result Value Ref Range POC Glucose 157 (H) 65 - 99 mg/dL POCT Glucose, Fingerstick Collection Time: 10/24/25 11:55 PM Specimen: Blood Result Value Ref Range POC Glucose 126 (H) 65 - 99 mg/dL POCT Glucose, Fingerstick Collection Time: 10/25/25 4:24 AM Specimen: Blood Result Value Ref Range POC Glucose 148 (H) 65 - 99 mg/dL Cosigned by Anupam Chisholm MD at 10/25/2025 10:45 AM EST Associated attestation - Anupam Chisholm MD - 10/25/2025 10:45 AM EST Teaching Physician Attestation Level of Participation I have personally interviewed and examined the patient and reviewed Dr. David's note. I agree with the history, exam, assessment and plan as detailed in the resident/fellow's note with the following additions/exceptions/observations: Sis Valdez is a 55 y.o. postmenopausal female with a past medical history of type 2 diabetes,thyroid cancer status post resection, non-small cell lung cancer status post low resection, COPD, DANIEL, hypothyroidism, hypertension, and hyperlipidemia, who is currently admitted for a tubo-ovarian abscess that had been previously treated at an outside hospital with meropenem and p.o. Augmentin andFlagyl. Despite antibiotics, the abscess worsened and the patient was transferred to [facility] where IR drainage of the abscess was performed with 2 drains on 10/23, which is now complicated by the transgluteal drain having feculent output. Patient reports feeling improved and is currently h emodynamically stable. Patient was afebrile overnight, but leukocytosis is slightly worsened this morning. MADELINE has improved with PCN placement with good urine output documented. Due to the new feculent output of her transgluteal drain, [facility]END[facility] [employer]ACHINE oncology and general surgery was consulted. I evaluated the patient with Dr. Alicia, [facility] Onc, who discussed the possible need for a washout with the patient to improve source control. General Surgery would prefer a drain study to investigatethe drain placement prior to the OR. Please see their respective notes for additional details. [facility] will follow peripherally and available if questions arise, but will defer surgical management to gynoncology at this time. Appreciate infectious disease input on antibiotic therapy. Sign Anupam Chisholm MD [facility] Available on [employer] 10/25/2025 10:34 AM * Renée Rosen MD - 10/24/2025 3:49 PM EST PM Progress Note Assessment: 55 y.o. history of urosepsis and suspected reaccumulation of tubo- ovarian abscess after previous drainage, now admitted to step down for sepsis, complicated by bilateral hydronephrosis and MADELINE. She is now POD#1 IR aspiration of recurrent TOA with drain in left adnexa and presacral space andbilateral PCNs. Pain remains well controlled during the day. Patient without new BENDER MACHINE concerns during the day. Plan: - Recommend MRI, per primary team awaiting improvement in renal function - Rest of the plan per AM note - Appreciate excellent care per primary team Subjective: Patient her pain remains well controlled. Just has some back soreness. She is excited to eat No fever, chills. Objective: Temp: [97.5 ??F (36.4 ??C)-101.3 ??F (38.5 ??C)] 98.3 ??F (36.8 ??C) Pulse: [89-184] 91 Resp: [17-24] 24 BP: (97-150)/(48-67) 104/62 Gen: no acute distress Abd: soft, non tender Pelvic: deferred Ext: no edema, no calf tenderness * Melissa Leyva MD - 10/24/2025 3:08 PM EST [facility] Medicine Progress Note LOS: 1 CODE:: Code Status Procedures Full Code Principal Problem: Sepsis (HCC) (POA: Unknown) Active Problems: Type 2 diabetes mellitus (HCC) (POA: Yes) Schizophrenia (HCC) (POA: Yes) Postoperative hypothyroidism (POA: Yes) Obstructive sleep apnea syndrome (POA: Yes) Gastroesophageal reflux disease (POA: Yes) Hyperlipidemia (POA: Yes) Hypertension (POA: Yes) Chronic obstructive lung disease (HCC) (POA: Yes) Bipolar disorder (HCC) (POA: Yes) Tubo-ovarian abscess (POA: Unknown) Urinary tract infection (POA: Unknown) MADELINE (acute kidney injury) (POA: Unknown) Anemia (POA: Unknown) Hypocalcemia (POA: Unknown) Hypokalemia (POA: Unknown) High anion gap metabolic acidosis (POA: Unknown) Resolved Problems: Assessment & Plan Sis Valdez is a 55 y.o. female HTN, HLD, T2DM, DANIEL, COPD (2 L NC at night), schizophrenia, bipolar disorder, papillary thyroid carcinoma s/p thyroidectomy, NSCLC s/p LLL resection (02/2025), abnormal uterine bleeding, and recent hospitalization in ICU for urosepsis and TOA who presented to [place] 10/22 for AMS and found to have sepsis likely secondary to re-accumulation of tubo-ovarian abscess, as well as possible urosepsis. Transferred to and admitted to medical SD. She is now status post bilateral PCN placement, tubo- ovarian abscess drainage. Urosepsis Tubo-ovarian abscess status post drainage She is now status post IR drainage and placement of left adnexal and presacral space drains on 10/23/2025 - DRY JANITOR following - Urology following - ID following, appreciate recs - Continue antibiotics with Zosyn - Continue to monitor WBC and fever curve - Gynecology recommends MRI for malignancy workup. Will hold for now given impaired kidney function. MADELINE Moderate hydronephrosis status post bilateral PCN placement MADELINE has been improving, most recent creatinine of 2.25, presented with creatinine of 3.83. -Strict VILMA's - Daily BMP - Medications renally dosed Hypernatremia Sodium on 10/24/2025 146. - D5W Hypertension Hyperlipidemia Type 2 diabetes mellitus Has been normotensive and euglycemic. - Continue Lipitor 40 mg daily - Holding lisinopril 2.5 mg daily given MADELINE - Holding aspirin 81 mg nightly - POCT ACHS - Sliding scale History of schizophrenia History of bipolar disorder -Resume gabapentin renally dose 300 mg 3 times daily - Continue Klonopin 1 mg twice daily as needed for anxiety - Continue home Abilify 20 mg daily, Wellbutrin 300 mg daily, Haldol 2.5 mg daily, baclofen 10 mg 3times daily VTE Time Out VTE risk assessment NOT done - Click here to document Chemical Prophylaxis heparin (porcine) 5000 unit/mL injection 5,000 Units Subcutaneous Every 8 hours scheduled Heparin Sodium (Porcine) 5000 Units Last dose 10/24/2025 1:58 PM Mechanical Prophylaxis SCDs are ordered - Bilateral (Knee High) Restraints: no Petty: Urethral Catheter (Adult) 10/22/25 1800 (Active) Number of days: 2 Expected Discharge Date: 10/25/2025 Subjective No acute events overnight Morning examination: Patient reported feeling better during the morning examination. Objective Last Vitals Pulse:91,Resp:(!) 24,BP:104/62,SpO2:96 %,Weight:96.6 kg (212 lb 15.4 oz) Temp Last 24 hrs: Temp Min: 97.5 ??F (36.4 ??C) Max: 101.3 ??F (38.5 ??C) Last temp: 98.3 ??F (36.8 ??C) (Tympanic) Intake/Output Summary (Last 24 hours) at 10/24/2025 1508 Last data filed at 10/24/2025 1400 Gross per 24 hour Intake 525 ml Output 4690 ml Net -4165 ml Physical Exam General appearance: adult female awake and alert, in NAD Lungs: CTA b/l, on 2 L NC Heart: RRR S1S2 Abdomen: abdomen soft, +BS, NTND Extremities: no edema Neurologic: grossly normal, A+O x3 Melissa Leyva MD 10/24/2025 3:08 PM Available on [employer] * Bambi Robin, PharmD - 10/24/2025 1:27 PM EST Images from the original note were not included. Pharmacy - Antibiotic Renal Adjustment Note Labs: Renal Creatinine (72h ago through now) Date/Time Serum Creatinine Range CrCl 10/24/25 0646 2.25 mg/dL 0.40 - 1.10 mg/dL 35 mL/min 10/23/25 0822 3.12 mg/dL 0.40 - 1.10 mg/dL 25.2 mL/min 10/22/25 1818 3.83 mg/dL 0.40 - 1.10 mg/dL 20.5 mL/min Blood Urea Nitrogen (BUN) BUN 10/24/25 0646 32 10/23/25 0822 43 10/22/25 1818 45 Estimated Creatinine Clearance: 35 mL/min (A) (by C-G formula based on SCr of 2.25 mg/dL (H)). Last Height/Weight Flowsheet Row Most Recent Value Height 1.721 m (5' 7.75 ) filed at: 10/24/2025 1300 Weight 96.6 kg (212 lb 15.4 oz) filed at: 10/22/2025 2215 [place] body weight: 63.3 kg (139 lb 9.7 oz) Adjusted ideal body weight: 76.6 kg (168 lb 15.2 oz) Sis Valdez is a 55 y.o. female that is receiving antimicrobial therapy for intra-abdominal abscess. Piperacillin/ tazobactam was changed from 4.5 g every 12 hours to 4.5 g every 8 hours per [facility] automatic renal adjustment protocol. Pharmacy will continue to follow the patient's renal function, culture results and clinical progress daily. Bambi Robin A Document for: [facility] Title: Pharmacist Automatic Antimicrobial Renal Dose Adjustment_[facility] Purpose: To define practices for pharmacist automatic antimicrobial renal dose adjustment Scope: Pharmacists, providers Policy Statement(s): Antibiotics included in the Pharmacist Automatic Antimicrobial Renal Dose Adjustment document will automatically be dose-adjusted for renal function and appropriate dosing. The pharmacist will automatically dose-adjust antibiotic frequencies, based on the patient???s estimated creatinine clearance If the indication specified at cook short order does not meet the dosing recommendations within the protocol or is not included in the protocol, providers will be contacted for order clarification. Indication-specific doses should not be adjusted per protocol as some indications have differing doses. Dosing intervals should be automatically adjusted based on creatinine clearance ranges. (For example: pharmacists may change daptomycin from q24h dosing to q48h dosing for a CrCl of 20 mL/min, but NOT from 6 mg/kg dose to 8 mg/kg dose.) If an antimicrobial requires an adjustment in dose at a specific creatinine clearance range, pharmacists may automatically adjust (For example: an order originally placed for cefepime 2 g can be automatically reduced to 1 g every 24 hours for a CrCl less than 10 mL/min) Indication-specific dosing recommendations are suggestions, and patient-specific factors may require alternative dosing recommendations that are not highlighted in the table below. Due to the vast number of possible antimicrobial indications for antimicrobials included, some indications may not be listed. Providers should be contacted if questions arise regarding the appropriateness of dosing regimens. Patients requiring extracorporeal membrane circulation (ECMO) are excluded from this policy, and required dose adjustments should be discussed with the provider. This document contains antimicrobial dosing regimens that are safe, effective, and evidence based. However, there are some instances where multiple dosing regimens are safe, effective, and evidence based. Please consider alternative dosing regimens when an infectious diseases provider is placing anorder for an antimicrobial. Please contact [facility] if you have any questions. Procedure: Upon receipt or review of an order that contains a dosing frequency that does not correspond with apatient???s creatinine clearance, the pharmacist will automatically adjust the antibiotic to the frequency that is defined by the dosing parameters in the protocol. Dosage adjustments will be made for antibiotics that do not have dose ranges. Antibiotics that havedose ranges will not be automatically adjusted and the provider will be contacted. Dosage adjustments for renal dysfunction will be processed and documented in [facility]. All orders entered in [facility] should be entered as ???per protocol: no cosign required?? . Antimicrobial renal dose adjustments should be documented as ivents in Epic under ???Antimicrobial stewardship?? with the subtype ???renal dose adjustment?? . Ivents must be copied into the chart as a progress note. Definitions: Ivent: an ivent is a means of documentation in [facility] viewable only to pharmacist. Appendix A: Adult Antimicrobial Dosing Guide [facility] Adult Antimicrobial Dosing Guide Antimicrobial Agent Creatinine Clearance (mL/min) Indication-specific dosing Greater than 50 30-50 10-30 Less than 10 or HD (dose after dialysis) CRRT Acyclovir (IV) Use AdjBW if weight greater than 120% of IBW HSV encephalitis/ VZV/ zoster ophthalmicus 10 mg/kg q8h 10 mg/kg q12h 10 mg/kg q24h 5 mg/kg q24h 10 mg/kg q12h HSV genital or mucocutaneous 5 mg/kg q8h 5 mg/kg q12h 5 mg/kg q24h 2.5 mg/kg q24h 5 mg/kg q12h Acyclovir (PO) VZV 800 mg 5 times daily 800 mg q8h 800 mg q12h HSV genital or mucocutaneous 400 mg q8h 200 mg q8h 200 mg q12h HSV prophylaxis 400 mg q12h 200 mg q12h Amphotericin B Lipid Complex (Abelcet??)(IV) Dose using IBW. Use actual weight if less than IBW 5 mg/kg q24h Liposomal Amphotericin B (Ambisome) (IV) Use AdjBW if weight greater than 120% of IBW Cryptococcal meningitis 3-4 mg/kg q24h Mucormycosis 5-10 mg/kg q24h Other systemic infection 3-5 mg/kg q24h Amoxicillin (PO) All others 500 mg q8h 500 mg q12h 500 mg q24h 500 mg q12h CAP 1g q8h 1g q12h 500 mg q12h 500 mg q12h Amoxicillin/ clavulanate (PO) 875/125 mg q12h 500/125 mg q12h 500/125 mg q24h 500/125 mg q24h Ampicillin (IV) Endocarditis/ INSULATION P[employer] UNIT TENDER/ bacteremia/ osteomyelitis/ PJI/ severe^ 2 g q4h 2 g q6h 2 g q8h 2 g q12h 2 g q8h All others 2 g q6h 2 g q8h 2 g q12h 2 g q24h 2 g q8h Ampicillin/ Sulbactam (IV) All others 3 g q6h 3 g q12h 3 g q24h 3 g q8h Cystitis 1.5 g q6h 1.5 g q8h 1.5 g q12h 1.5 g q24h 1.5 g q8h MDR+ Acinetobacter baumannii 3g q4h 3g q6h 3g q8h 3g q12h 3g q6h Azithromycin (IV/PO) 500 mg q24h Aztreonam (IV) Pseudomonas/ severe^ 2 g q8h 2 g q12h 2 g q24h 1 g q24h 2 g q8h All others 1 g q8h 1g q12h 1 g q24h 1 g q24h 1 g q8h Cefazolin (IV) All others 2 g q8h 2 g q12h CrCl less than 10 HD 2 g q8h 2 g q24h 1 g q24h UTI/ cellulitis/ uncomplicated SSTIs 1 g q8h 1 g q12h 1 g q24h 1 g q8h Cefepime (IV) All others/ SDD isolates* 2 g q8h 2 g q12h 2 g q24h 1 g q24h 2 g q8h UTI/ cellulitis/ uncomplicated SSTIs 1 g q8h 1 g q12h 1 g q24h 1g q24h 1 g q8h Cefiderocol (IV) CrCl greater than or equal to 120 CrCl 60-120 CrCl 30-60 CrCl 15-30 CrCl less than 15 or HD CRRT 2 g q6h 2 g q8h 1.5 g q8h 1 g q8h 750 mg q12h Dosing based on effluent rate; see package insert [facility] Adult Antimicrobial Dosing Guide Antimicrobial Agent Creatinine Clearance (mL/min) Indication-specific dosing Greater than 50 30-50 10-30 Less than 10 or HD (dose after dialysis) CRRT Cefpodoxime (PO) All others 200 mg q12h 200 mg q24h UTI 100 mg q12h 100 mg q24h SSTI or bacteremia 400 mg q12h 400 mg q24h 200 mg q24h Ceftaroline (IV) Bacteremia/ endocarditis/ severe^ 600 mg q8h 400 mg q8h 300 mg q8h 200 mg q8h 600 mg q8h All others 600 mg q12h 400 mg q12h 300 mg q12h 200 mg q12h 600 mg q12h Ceftazidime (IV) INSULATION P[employer] TENDER/ pneumonia/ severe^ 2 g q8h 2 g q12h 2 g q24h 1 g q24h 2 g q8h All others 1 g q8h 1 g q12h 1g q24h 1g q24h 1 g q8h Ceftazidime/ avibactam (IV) 2.5 g q8h 1.25 g q8h CrCl 15-29 CrCl 5-14 CrCl less than 5 HD 1.25 g q8h 0.94 g q12h 0.94 g q24h 0.94 g q48h 0.94 g q24h Ceftolozane/ tazobactam (IV) Pneumonia/ bacteremia/ severe^ 3 g q8h 1.5 g q8h CrCl 15-29 CrCl less than 15 HD 1.5 g q8h 750 mg q8h No data 2.25 g x1, then 450 mg q8h All others 1.5 g q8h 750 mg q8h CrCl 15-29 CrCl less than 15 HD 1.5 g q8h 375 mg q8h No data 750 mg x1, then 150 mg q8h Ceftriaxone (IV) INSULATION POWER UNIT TENDER or Enterococcal IE synergy 2 g q12h Osteomyelitis/ septic joint/ Strep. endocarditis/ Lyme 2 g q24h All others 1 g q24h Cefuroxime (PO) All others 500 mg q12h 500 mg q24h 500 mg q48h UTI 250 mg q12h 250 mg q24h 250 mg q48h Cephalexin (PO) All others 500 mg q6h 500 mg q8h 500 mg q12h 500 mg q12h UTI 500 mg q12h 500 mg q24h 500 mg q24h Ciprofloxacin (IV) Pneumonia/ severe^ 400 mg q8h 400 mg q12h 400 mg q24h 400 mg q8h All others 400 mg q12h 400 mg q24h 400 mg q12h Ciprofloxacin (PO) Pneumonia/ severe^ 750 mg q12h 750 mg q24h 750 mg q12h All others 500 mg q12h 500 mg q24h 500 mg q12h Clindamycin (IV) Necrotizing fasciitis/ PJP/ toxoplasmosis 900 mg q8h All others 600 mg q8h Clindamycin (PO) 300-450 mg q6-8h Dalbavancin (IV) Acute bacterial SSSI (one-time dose in ED only) 1,500 mg x1 1,125 mg x1 1,500 mg x1 Daptomycin (IV) Use AdjBW if weight greater than 120% of IBW VRE infection bacteremia/ endocarditis/ SDD* 10-12 mg/kg q24h 10-12 mg/kg q48h MRSA bacteremia/ endocarditis 8-10 mg/kg q24h 8-10 mg/kg q48h All others 6 mg/kg q24h 6 mg/kg q48h Doxycycline (IV/PO) 100 mg q12h [facility] Adult Antimicrobial Dosing Guide Antimicrobial Agent Creatinine Clearance (mL/min) Indication-specific dosing Greater than 50 30-50 10-30 Less than 10 or HD (dose after dialysis) CRRT Fluconazole (IV/PO) Invasive candidiasis 800 mg (12 mg/kg) x1, then 400 mg (6 mg/kg) q24h 800 mg (12 mg/kg) x1, then 200 mg (3mg/kg) q24h 800 mg (12 mg/kg) x1, then 400 mg (6 mg/kg) q24h Esophageal candidiasis 400 mg q24h 200 mg q24h Febrile neutropenia prophylaxis 400 mg q24h 200 mg q24h Oropharyngeal candidiasis 200 mg q24h 100 mg q24h Flucytosine (PO) Use IBW if weight greater than 120% of IBW CrCl greater than 40 CrCl 20-40 CrCl 10-20 CrCl less than 10 or HD 25 mg/kg [id number] 25 mg/kg q6h 25 mg/kg q12h 25 mg/kg q24h 25 mg/kg q48h Fosfomycin (PO) Complicated UTI 3 g q48h x3 doses 3 g q72h x2 doses Uncomplicated UTI 3 g x1 dose Ganciclovir (IV) Use AdjBW if weight greater than 120% of IBW CMV treatment CrCl greater than 70 CrCl 50-70 CrCl 25-50 CrCl 10-25 CrCl less than 10 or HD 5 mg/kg q12h 2.5 mg/kg q12h 2.5 mg/kg q24h 1.25 mg/kg q24h 1.25 mg/kg three times weekly CMV prophylaxis 5 mg/kg q24h 2.5 mg/kg q24h 1.25 mg/kg q24h 0.625 mg/kg q24h 0.625 mg/kg three times weekly Isavuconazonium sulfate (IV/PO) Invasive aspergillosis or mucormycosis 372 mg q8h x 6 doses, then 372 mg q24h (initiate 12-24h after last loading dose) Letermovir (IV) CMV prophylaxis, allogeneic HSCT 480 mg q24h No dose adjustment with CrCl > 10 mL/min. Accumulation of IV vehicle may occur in CrCl < 50 mL/min, closely monitor SCr Letermovir (PO) CMV prophylaxis, allogeneic HSCT 480 mg q24h CrCl less than 10 Not defined Levofloxacin (IV/PO) Pneumonia/ severe^ 750 mg q24h CrCl 20-49 CrCl less than 20 or HD 750 mg q24h 750 mg q48h 500 mg q48h All others 500 mg q24h CrCl 20-49 CrCl less than 20 or HD 500 mg q24h 500 mg q48h 250 mg q48h Linezolid (IV/PO) 600 mg q12h Maribavir (PO) CMV treatment, refractory 400 mg q12h Meropenem (IV) INSULATION POWER UNIT TENDER/VAP 2 g q8h 1 g q8h CrCl less than 30 HD 2 g q8h 1 g q12h 500 mg q24h All others 500 mg q6h 500 mg q8h CrCl less than 30 HD 500 mg q6h 500 mg q12h 500 mg q24h Metronidazole (IV/PO) Brain abscess 500 mg q6h Clostridioides difficile infection 500 mg q8h All others 500 mg q12h Micafungin (IV) Esophageal candidiasis/ intravascular infection 150 mg q24h All others, including prophylaxis 100 mg q24h Minocycline (PO) All others 100 mg q12h Stenotrophomonas maltophilia or MDR+ A. baumannii 200 mg q12h Nafcillin (IV) 2 g q4h [facility] Adult Antimicrobial Dosing Guide Antimicrobial Agent Creatinine Clearance (mL/min) Indication-specific dosing Greater than 50 30-50 10-30 Less than 10 or HD (dose after dialysis) CRRT Nitrofurantoin (PO) Uncomplicated cystitis CrCl greater than 30 CrCl less than 30 100 mg q12h Avoid use Oseltamivir (PO) Influenza treatment 75 mg q12h 75 mg q24h CrCl Less than 10 HD 75 mg x1 then 30 mg q24h 30 mg q24h 75 mg x1 then 30 mg post HD Influenza prophylaxis 75 mg q24h 30 mg q24h 30 mg q48h CrCl Less than 10 HD 30 mg q24h 30 mg q48h 30 mg x1, then 30 mg post HD Penicillin G (IV) Neurosyphilis/ meningitis/ necrotizing fasciitis/ endocarditis 4 mil units q4h 3 mil units q4h 2 mil units q4h 4 mil units x1, then 3 mil units q4h Peramivir (IV) Influenza treatment 600 mg once 200 mg once 100 mg once 100 mg once Piperacillin/ tazobactam (IV) CrCl > 40 CrCl 20-40 CrCl < 20 or HD 4.5 g q6h 4.5 g q6h 4.5 g q8h 4.5 g q12h Posaconazole (PO) 300 mg q12h x 2 doses then 300 mg q24h Posaconazole (IV) 300 mg q12h x 2 doses then 300 mg q24h Oral formulation preferred when CrCl < 50 mL/min Trimethoprim/ sulfamethoxazole (IV/PO) Dose calculated based on TMP; use AdjBW if weight greater than 120% of IBW UTI & pyelonephritis 1 DS tab q12h 1 DS tab q24h PJP or Nocardia 15-20 mg/kg/day divided in 3-4 doses 7.5-10mg/kg/day divided in 1-2 doses Toxoplasma encephalitis 10 mg/kg/day divided in 2 doses 5 mg/kg/day divided in 2 doses S. maltophilia or Systemic infection 8-12 mg/kg/day divided in 2-3 doses 4-6 mg/kg/day divided in 1-2 doses Valacyclovir (PO) Herpes zoster 1000 mg q8h 1000 mg q12h 1000 mg q24h 500 mg q24h Cold sores (x1 day) 2 g q12h 1 g q12h 500 mg q12h 500 mg x 1 Genital herpes treatment: Initial episode (x10 days) 1000 mg q12h 1000 mg q24h 500 mg q24h Genital herpes treatment: recurrent episodes (x3 days) 500 mg q12h 500 mg q24h 500 mg q24h Genital herpes prophylaxis: immunocompetent 500 - 1000 mg q24h 500 - 1000 mg q24h 500 mg q24h 500 mg q24h Genital herpes prophylaxis: HIV-infected/ immunocompromised 500 mg q12h 500 mg q12h 500 mg q24h 500 mg q24h Valganciclovir (PO) CMV Treatment CrCl greater than or equal to 60 CrCl 40-60 CrCl 25-40 CrCl less than 25 or HD 450 mg q12h 900 mg q12h 450 mg q12h 450 mg q24h 450 mg q48h CMV Prophylaxis 900 mg q24h 450 mg q24h 450 mg q48h 450 mg twice weekly 450 mg q24h [facility] Adult Antimicrobial Dosing Guide Antimicrobial Agent Creatinine Clearance (mL/min) Indication-specific dosing Greater than 50 30-50 10-30 Less than 10 or HD (dose after dialysis) CRRT Vancomycin (PO) Clostridioides difficile infection (nonfulminant) 125 mg q6h Clostridioides difficile infection (fulminant) 500 mg q6h Clostridioides difficile Prophylaxis 125 mg q24h Voriconazole (IV) Use AdjBW if weight greater than 120% of IBW 6 mg/kg q12h x 1 day, then 4 mg/kg q12h Oral formulation preferred when CrCl < 50 mL/ min Voriconazole (PO) Use AdjBW if weight greater than 120% of IBW 6 mg/kg q12h x 1 day, then 4 mg/kg q12h *SDD: Susceptible dose dependent (isolates that are susceptible dose dependent will be reported as such in Epic) +MDR: Multi-drug resistant, which includes carbapenem-resistant Acinetobacter baumannii (CRAB) ^Severe: Infections categorized as severe may include but are not limited to pneumonia, endocarditis, bacteremia, necrotizing fasciitis, meningitis, osteomyelitis. Categorization of infection type should be discussed with provider. * Renée Rosen MD - 10/24/2025 10:27 AM EST [employer] AM Progress Note Assessment & Plan Assessment 55 y.o. with a history of urosepsis and suspected reaccumulation of tubo-ovarian abscess after previous drainage, now admitted to step down for sepsis, complicated by bilateral hydronephrosisand MADELINE. She is now POD#1 IR aspiration of recurrent TOA with drain in left adnexa and presacral space and bilateral PCNs. Overnight, patient was febrile (likely due to recent manipulation of abscess). She is overall well appearing this morning. Vital signs most recently stable. Plan - s/p IR drainage and placement of left adnexal and presacral space drains. - ID following. Appreciate continued antibiotic recommendations. Currently transitioned to IV Zosyn. F/u culture and cytology.Febrile overnight to 101.1 however this may be anticipated due to recent procedure. - Given recurrent nature of the TOA, recommend evaluating for neoplasm. Strongly recommend obtaining MRI for evaluation. Will consider [facility]INE Onc consult tomorrow. - MADELINE: Cr improving, most recently 2.25 this morning. Bilateral PCNs in place. Defer management of MADELINE to primary team. - Appreciate excellent care per primary care Renée Rosen MD [facility] Obstetrics and Gynecology, PGY2 Available on [employer] 10/24/2025 10:28 AM Subjective Overall patient reports that she has no concerns. Denies any abdominal pain however reporting some back soreness at the site of her PCNs. Has been making BM. She is hoping to have some food today. Has not been ambulating. Denies fever, chills, CP/SOB Objective Physical exam Last Vitals: Vitals: 10/24/25 1000 BP: (!) 100/53 Pulse: 92 Resp: 20 Temp: SpO2: 97% Weight: Intake/Output Summary (Last 24 hours) at 10/24/2025 1028 Last data filed at 10/24/2025 1000 Gross per 24 hour Intake 635 ml Output 4175 ml Net -3540 ml Gen: NAD Pulm: No increased WOB Abd: Soft, no tenderness to palpation, mildly distended, no rebound or guarding : LLQ and right gluteal drains draining serosanguinous fluid. Ext: No calf tenderness bilaterally, No edema Labs: Recent Results (from the past 24 hours) POCT Glucose, Fingerstick Collection Time: 10/23/25 12:06 PM Specimen: Blood Result Value Ref Range POC Glucose 96 65 - 99 mg/dL Aerobic culture (Gram stain included) Collection Time: 10/23/25 12:46 PM Specimen: Sacrum Aspirate, Abscess Result Value Ref Range Gram stain suggestive of Many neutrophils No squamous cells Red blood cells Gram positive cocci Culture PENDING Aerobic culture (Gram stain included) Collection Time: 10/23/25 1:38 PM Specimen: Ovary, left Aspirate, Abscess Result Value Ref Range Gram stain suggestive of Many neutrophils No squamous cells Red blood cells Gram positive cocci Culture PENDING Urine Culture, Comprehensive Collection Time: 10/23/25 2:59 PM Specimen: Nephrostomy Catheter, left Urine Result Value Ref Range Culture Negative <24 hours Urine Culture, Comprehensive Collection Time: 10/23/25 3:00 PM Specimen: Nephrostomy Catheter, right Urine Result Value Ref Range Culture Negative <24 hours POCT Glucose, Fingerstick Collection Time: 10/23/25 4:52 PM Specimen: Blood Result Value Ref Range POC Glucose 74 65 - 99 mg/dL POCT Glucose, Fingerstick Collection Time: 10/23/25 6:09 PM Specimen: Blood Result Value Ref Range POC Glucose 125 (H) 65 - 99 mg/dL POCT Glucose, Fingerstick Collection Time: 10/23/25 8:04 PM Specimen: Blood Result Value Ref Range POC Glucose 115 (H) 65 - 99 mg/dL POCT Glucose, Fingerstick Collection Time: 10/24/25 2:14 AM Specimen: Blood Result Value Ref Range POC Glucose 99 65 - 99 mg/dL POCT Glucose, Fingerstick Collection Time: 10/24/25 3:55 AM Specimen: Blood Result Value Ref Range POC Glucose 105 (H) 65 - 99 mg/dL COMPLETE BLOOD COUNT, WITHOUT DIFFERENTIAL Collection Time: 10/24/25 6:46 AM Specimen: Blood Result Value Ref Range White Blood Cell Count 21.8 (H) 4.0 - 11.0 Thou/uL Platelet Count 422 150 - 450 Thou/uL Hemoglobin 7.5 (L) 11.7 - 15.7 g/dL Hematocrit 23.6 (L) 35.0 - 47.0 % Red Blood Cell Count 2.92 (L) 4.00 - 5.40 Mil/uL MCV 81 80 - 100 fL MCH 25.7 (L) 27.0 - 31.0 pg MCHC 31.8 30.0 - 36.0 g/dL RDW 16.3 (H) 11.5 - 14.5 % MPV 10.0 7.5 - 12.5 fL Basic Metabolic Panel Collection Time: 10/24/25 6:46 AM Specimen: Blood Result Value Ref Range Glucose 72 65 - 99 mg/dL Blood Urea Nitrogen (BUN) 32 (H) 8 - 21 mg/dL Creatinine 2.25 (H) 0.40 - 1.10 mg/dL eGFR 25 (L) >59 Sodium 146 (H) 136 - 145 mmol/L Potassium 3.5 3.4 - 5.3 mmol/L Chloride 111 (H) 98 - 107 mmol/L CO2 21 (L) 22 - 33 mmol/L Anion Gap 14 7 - 17 Calcium 8.4 (L) 8.7 - 10.5 mg/dL BUN/Creatinine Ratio 14 10.0 - 25.0 Ratio Magnesium Collection Time: 10/24/25 6:46 AM Specimen: Blood Result Value Ref Range Magnesium 2.1 1.6 - 2.7 mg/dL Vancomycin Level, Random Collection Time: 10/24/25 6:46 AM Specimen: Blood Result Value Ref Range Vancomycin, Random 14 mg/L Time of Last Dose Information not given POCT Glucose, Fingerstick Collection Time: 10/24/25 7:40 AM Specimen: Blood Result Value Ref Range POC Glucose 82 65 - 99 mg/dL Cosigned by Nidia Dsos MD at 10/24/2025 12:50 PM EST Associated attestation - Nidia Doss MD - 10/24/2025 12:50 PM EST Teaching Physician Attestation Level of Participation I have personally interviewed and examined the patient and reviewed Dr. Rosen's note. I agree withthe history, exam, assessment and plan as detailed in the resident/fellow's note with the followingadditions/exceptions/observations: Patient seen at bedside this morning. She states that she is feeling okay, pain is better since admission, but she does have some chronic pain at baseline that has been better since she is getting her gabapentin, also takes pregabalin. She would like to eat if possible or at least drink. On exam she is improved in appearance since when I saw her during her initial presentation. She is resting comfortably in bed with no increased work of breathing with [address] in place. Abdomen softly distended, tympanic to percussion, nontender. [address] with the right containingsomewhat darker brown fluid, and the 1 on the left containing somewhat more purulent appearing fluid. Bilateral PCNs also in place draining somewhat cloudy appearing urine. Vitals: 10/24/25 0600 10/24/25 0800 10/24/25 1000 10/24/25 1145 BP: (!) 117/57 104/60 (!) 100/53 BP Location: Left arm Left arm Left arm Patient Position: Lying Lying Lying Pulse: 93 89 92 Resp: 17 17 20 Temp: 98.1 ??F (36.7 ??C) 98.3 ??F (36.8 ??C) TempSrc: Tympanic Tympanic SpO2: 96% 98% 97% Weight: Discussed with patient the diagnosis of tubo-ovarian abscess; we discussed that sometimes this can be due to an ascending infection from the vagina > uterus > tubes and ovaries; she does have ahistory of a tubal ligation which makes this somewhat less likely; we also discussed that cancer can be a potential nidus; as well as transposition from gastrointestinal source. B[facility] MACHINE oncology was madeaware of the patient yesterday by Dr. Washington, but will plan for formal [employer] consultation tomorrow. When kidney function is deemed appropriate, also agree with recommendation as discussed by Dr. Washington in her note yesterday of MRI to further help delineate possible B[employer] MACHINE malignancy. Appears to be improving from an infectious standpoint. [facility] will continue to follow closely; greatlyappreciate care per consulting and primary teams. Edvin Doss MD [facility] Available on [employer] 10/24/2025 12:44 PM * Jen Treviño MD - 10/24/2025 10:24 AM EST Daily Urology Progress Note Principal Problem: Sepsis (HCC) (POA: Unknown) Active Problems: Type 2 diabetes mellitus (HCC) (POA: Yes) Schizophrenia (HCC) (POA: Yes) Postoperative hypothyroidism (POA: Yes) Obstructive sleep apnea syndrome (POA: Yes) Gastroesophageal reflux disease (POA: Yes) Hyperlipidemia (POA: Yes) Hypertension (POA: Yes) Chronic obstructive lung disease (HCC) (POA: Yes) Bipolar disorder (HCC) (POA: Yes) Tubo-ovarian abscess (POA: Unknown) Urinary tract infection (POA: Unknown) MADELINE (acute kidney injury) (POA: Unknown) Anemia (POA: Unknown) Hypocalcemia (POA: Unknown) Hypokalemia (POA: Unknown) High anion gap metabolic acidosis (POA: Unknown) Resolved Problems: Assessment & Plan Sis Valdez is a 55 y.o. female who presented 10/23 with sepsis in the context of tubo-ovarianabscess and Urology was consulted for bilateral hydronephrosis. She is POD 1 s/p bilateral PCN placement along with a IR adnexal drain and an IR pelvic drain. Reviewing her CT from prior to placement, it does appear that her ureter is narrow at the level of her pelvic abscess which was the likely source of her obstruction. It is unclear the extent that urosepsis is contributing to her general sepsis picture, particularly with large amount of pus drained from her abscesses. Sepsis may also be contributing to her MADELINE in addition to her obstruction. It ispossible her hydronephrosis would have resolved after draining her abscesses alone. Regardless, hanna has definitive drainage with bilateral percutaneous nephrostomy tubes. These should remain in place while she is acutely ill and can hopefully be removed after resolution of her pelvic pathology.This will most likely occur in the outpatient setting. - Bilateral nephrostomy tubes to gravity drainage - Appreciate ID recommendations regarding antibiotics - Follow-up urine culture - Trend creatinine - No additional urology service interventions anticipated this admission - Please page urology with questions or concerns Subjective No acute events overnight. Patient states that she is feeling better. Objective Last Vitals Pulse:92,Resp:20,BP:(!) 100/53,SpO2:97 %,Weight:96.6 kg (212 lb 15.4 oz) Temp Last 24 hrs: Temp Min: 97 ??F (36.1 ??C) Max: 101.3 ??F (38.5 ??C) Last temp: 98.1 ??F (36.7 ??C) (Tympanic) Diet NPO; Meds, Sips of clears, Ice chips Date 10/23/25 07 - 10/24/25 0659 10/24/25 07 - 10/25/25 0659 Shift [id number] 6569-3709 8988-3958 24 Hour Total 1728-1206 5467-9472 2025-1610 24 Hour Total INTAKE P.O. 120 120 120 120 I.V.(mL/kg) 10(0.1) 25(0.3) 35(0.4) 10(0.1) 10(0.1) Other 10 10 IV Piggyback 350 350 Shift Total(mL/kg) 360(3.7) 145(1.5) 10(0.1) 515(5.3) 130(1.3) 130(1.3) OUTPUT Urine(mL/kg/hr) 1100(1.4) 2125(2.7) 1000(1.3) 4225(1.8) 875 875 Emesis/NG output 0 0 0 0 Other 35 40 55 130 45 45 Shift Total(mL/kg) 1135(11.7) 2165(22.4) 1055(10.9) 4355(45.1) 920(9.5) 920(9.5) Weight (kg) 96.6 96.6 96.6 96.6 96.6 96.6 96.6 96.6 Physical Exam Gen: Resting comfortably, NAD, AAO x3 HEENT: Normocephalic, atraumatic CVS: Regular heart rate Pulm: Normal respiratory effort on room air Abd: Soft, non-tender, moderately distended. Both IR drains are putting out brown purulent fluid. : Urine from both nephrostomy drains is clear yellow. Skin: Warm and well perfused. Labs: White Blood Cell Count Date Value Ref Range Status 10/24/2025 21.8 (H) 4.0 - 11.0 Thou/uL Final Hemoglobin Date Value Ref Range Status 10/24/2025 7.5 (L) 11.7 - 15.7 g/dL Final Hematocrit Date Value Ref Range Status 10/24/2025 23.6 (L) 35.0 - 47.0 % Final Platelet Count Date Value Ref Range Status 10/24/2025 422 150 - 450 Thou/uL Final Lab Results Component Value Date NA 146 (H) 10/24/2025 K 3.5 10/24/2025 CL 111 (H) 10/24/2025 CO2 21 (L) 10/24/2025 BUN 32 (H) 10/24/2025 CREAT 2.25 (H) 10/24/2025 GLUC 82 10/24/2025 GLUC 72 10/24/2025 Lab Results Component Value Date CALCIUM 8.4 (L) 10/24/2025 MG 2.1 10/24/2025 PHOS 4.5 10/23/2025 Lab Results Component Value Date AST 56 (H) 10/22/2025 ALT 28 10/22/2025 ALKPHOS 125 (H) 10/22/2025 BILITOT 0.3 10/22/2025 ALBUMIN 3.5 10/22/2025 PROT 7.2 10/22/2025 Lab Results Component Value Date LIPASE 32 10/22/2025 Lab Results Component Value Date PTT 26 10/22/2025 LABPROT 15.0 (H) 10/22/2025 INR 1.3 10/22/2025 Imaging Studies US Shake Loader Pelvis Transabdominal with US Shake Loader Transvaginal Result Date: 10/23/2025 EXAMINATION: ULTRASOUND OF THE PELVIS CLINICAL INFORMATION: Collection in left adnexa with multisystic ovary, fluid, gas.. COMPARISON: CT abdomen and pelvis 10/22/2025, 2:20 PM.. TECHNIQUE: Transabdominal and transvaginal pelvic ultrasound. Doppler evaluation with spectral analysis was performed. A transvaginal study was performed in addition to the transabdominal study which did not yield an adequate examination of the uterus and ovaries due to superimposed distended gas-filled loops of bowel.FINDINGS: The uterus is normal in size and appearance, measuring 12 x 4.9 x 5.8 cm longitudinally, a nteroposteriorly and transversely. The endometrial stripe thickness is normal, measuring 0.8 cm in thickness. Fundal fibroid measuring 4.6 x 4.8 x 4 cm with The ovaries are not visualized. There is aill-defined fluid collections with surrounding debris and septations as well as areas of increased vascularity within the right and left adnexal regions. Significantly limited examination. The ovaries are not visualized secondary to overlying bowel gas and difficulty in positioning/compliance during the exam. Partial visualization of complex free intraperitoneal fluid. Ill-defined fluid collections with surrounding debris and septations as well as areas of increased vascularity within the right and left adnexal regions. Findings may represent abscesses/phlegmon. Frontal myometrial uterine fibroid measuring 4.8 cm in diameter. Interpreted by: Santiago Elena MD Weed Control Inspector I personally reviewed the images and the resident's preliminary report and AGREE with the report as it is now presented ([id number]). CT Head Archive for Reference Only Result Date: 10/22/2025 This study has been auto finalized and does not contain a result. CR Chest Archive for Reference only Result Date: 10/22/2025 This study has been auto finalized and does not contain a result. CT Abdomen Archive for Reference Only Result Date: 10/22/2025 This study has been auto finalized and does not contain a result. EDWIN Archive for reference only US Result Date: 10/22/2025 This order has been auto-finalized and does not contain a result. CR Chest Archive for Reference only Result Date: 10/22/2025 This study has been auto finalized and does not contain a result. EDWIN Archive for reference only US Result Date: 10/22/2025 This order has been auto-finalized and does not contain a result. CT Head Archive for Reference Only Result Date: 10/22/2025 This study has been auto finalized and does not contain a result. CT Abdomen Archive for Reference Only Result Date: 10/22/2025 This study has been auto finalized and does not contain a result. Other testing: n/a Electronically Signed Jen T Treviño, MD Urology, PGY2 10/24/2025 10:24 AM Please contact the Pager with any questions or concerns * Allison Dang MD - 10/23/2025 6:22 PM EST [employer] Progress Note Assessment & Plan Assessment 55 y.o. with a history of both urosepsis and suspected reaccumulation of tubo-ovarian abscess after previous drainage in September, now admitted to medicine with diagnosis of sepsis. POD#0 from IR placement of drains in left adnexa, presacral space for emely purulent fluid and bilateral PCNs. Patient has had one fever, to be expected after manipulation of abscesses. At this time appropriate to continue monitoring closely without surgical intervention. Plan TOA - Per IR note, drainage fluid from left adnexa and presacral ordered for cultures and cytology. Cytology not initially ordered but reached out to MOD who will order - Prior TOA drainage at OSH in September was culture and cytology negative. In a post-menopausal patient, may consider tumor markers for tubo-ovarian abscess however given cytology negative for malignant cells may be less beneficial. Furthermore given her global inflammation likely to be elevated inthat setting and would be difficult to interpret. - ID consulted and recommend starting zosyn and discontinuing all other antibiotics at this time. Also recommended MRI abdomen to further assess abdominal pathologies. This is not yet ordered by primary team as recommendations just came today - If not repeating MRI could consider obtaining MRI images from OSH which noted rectal thickening and to consider endoscopy BV - S/p Flagyl at OSH Other acute issues being managed by primary medical team, appreciate care Allison Dang MD PGY-3 [facility] OBGYN residency Pager #[phone] Also available on [employer] Please contact Gynecology on TT with any questions Subjective Overall feels she is doing much better after the procedure. Denies any pain in her abdomen/pelvis. She is still NPO. Reports she doesn't feel any pain with bloating. Note, patient was hypoglycemic and RN was giving IV dextrose. Objective Physical exam Last Vitals: Vitals: 10/23/25 1648 BP: Pulse: Resp: Temp: (!) 101.3 ??F (38.5 ??C) SpO2: Weight: Gen: NAD, AO x3, laying in bed Pulm: No increased WOB Abd: Mildly distended (improved from AM), no rebound or guarding, no tenderness Drains: left adnexal drain with scant purulent drainage, presacral drain with half bulb full purulent drainage, left PCN with blood tinged and right PCN with dark yellow urine Labs: Recent Results (from the past 24 hours) Blood Culture Collection Time: 10/22/25 6:57 PM Specimen: Blood, Peripheral Line Blood Result Value Ref Range Culture Sterile <24 hours ECG 12 lead Collection Time: 10/22/25 7:01 PM Result Value Ref Range Ventricular rate 116 BPM Atrial rate 116 BPM P-R interval 170 ms QRS duration 90 ms Q-T interval 322 ms QTC calculation (Bazett) 448 ms P axis 64 degrees R axis -12 degrees T axis 71 degrees Blood Culture Collection Time: 10/22/25 7:18 PM Specimen: Blood, Peripheral Line Blood Result Value Ref Range Culture Sterile <24 hours Lactate Level X 2 Collection Time: 10/22/25 9:04 PM Specimen: Blood Result Value Ref Range Lactic Acid 0.7 0.5 - 1.9 mmol/L Nasal MRSA Screen, PCR Collection Time: 10/23/25 12:05 AM Specimen: Anterior Nares, bilateral; Swab, Anterior Nares Result Value Ref Range MRSA Result Not Detected Not Detected Ammonia Level Collection Time: 10/23/25 1:55 AM Specimen: Blood Result Value Ref Range Ammonia, Plasma 44 11 - 51 umol/L COMPLETE BLOOD COUNT, WITHOUT DIFFERENTIAL Collection Time: 10/23/25 1:55 AM Specimen: Blood Result Value Ref Range White Blood Cell Count 26.5 (H) 4.0 - 11.0 Thou/uL Platelet Count 390 150 - 450 Thou/uL Hemoglobin 7.4 (L) 11.7 - 15.7 g/dL Hematocrit 22.6 (L) 35.0 - 47.0 % Red Blood Cell Count 2.82 (L) 4.00 - 5.40 Mil/uL MCV 80 80 - 100 fL MCH 26.2 (L) 27.0 - 31.0 pg MCHC 32.7 30.0 - 36.0 g/dL RDW 16.1 (H) 11.5 - 14.5 % MPV 10.0 7.5 - 12.5 fL Vancomycin Level, Random Collection Time: 10/23/25 2:22 AM Specimen: Blood Result Value Ref Range Vancomycin, Random 16 mg/L Time of Last Dose Information not given FERRITIN Collection Time: 10/23/25 2:22 AM Result Value Ref Range Ferritin 1,172 (H) 30 - 400 ug/L Iron and Total Iron Binding Capacity Collection Time: 10/23/25 2:22 AM Result Value Ref Range Iron 16 (L) 59 - 151 ug/dL UIBC 110 (L) 112 - 346 ug/dL Total Iron Binding Capacity 126 100 - 400 ug/dL Iron Sat 13 (L) 20 - 50 % VITAMIN B12 Collection Time: 10/23/25 2:22 AM Result Value Ref Range Vitamin B12 477 243 - 894 pg/mL POCT Glucose, Fingerstick Collection Time: 10/23/25 2:46 AM Specimen: Blood Result Value Ref Range POC Glucose 68 65 - 99 mg/dL Complete Blood Count, with Differential Collection Time: 10/23/25 8:22 AM Specimen: Blood Result Value Ref Range White Blood Cell Count 26.1 (H) 4.0 - 11.0 Thou/uL Platelet Count 425 150 - 450 Thou/uL Hemoglobin 7.6 (L) 11.7 - 15.7 g/dL Hematocrit 23.6 (L) 35.0 - 47.0 % Red Blood Cell Count 2.92 (L) 4.00 - 5.40 Mil/uL MCV 81 80 - 100 fL MCH 26.0 (L) 27.0 - 31.0 pg MCHC 32.2 30.0 - 36.0 g/dL RDW 16.1 (H) 11.5 - 14.5 % MPV 10.0 7.5 - 12.5 fL Myelocytes 1 % Neutrophils Man 84 % Lymphocytes Man 9 % Monocytes Man 4 % Basophils Man 2 % Abs Myelocytes 0.3 (H) 0 Thou/uL Abs Neutrophils Count (ANC) 21.9 (H) 2.0 - 7.5 Thou/uL Abs Lymphocytes Man 2.4 1.5 - 4.5 Thou/uL Abs Monocytes Man 1.0 0.2 - 1.5 Thou/uL Abs Basophils Man 0.5 (H) 0.0 - 0.2 Thou/uL Normochromic Present Normocytic Present Target Cells Occasional Smear Comment See Comment Basic Metabolic Panel Collection Time: 10/23/25 8:22 AM Specimen: Blood Result Value Ref Range Glucose 94 65 - 99 mg/dL Blood Urea Nitrogen (BUN) 43 (H) 8 - 21 mg/dL Creatinine 3.12 (H) 0.40 - 1.10 mg/dL eGFR 17 (L) >59 Sodium 134 (L) 136 - 145 mmol/L Potassium 3.7 3.4 - 5.3 mmol/L Chloride 101 98 - 107 mmol/L CO2 21 (L) 22 - 33 mmol/L Anion Gap 12 7 - 17 Calcium 8.0 (L) 8.7 - 10.5 mg/dL BUN/Creatinine Ratio 14 10.0 - 25.0 Ratio Hemoglobin A1c with Estimated Average Glucose Collection Time: 10/23/25 8:22 AM Specimen: Blood Result Value Ref Range Hemoglobin A1C 9.0 (H) <5.7 % Estimated Average Glucose 212 mg/dL Magnesium Collection Time: 10/23/25 8:22 AM Result Value Ref Range Magnesium 2.1 1.6 - 2.7 mg/dL Phosphorus Collection Time: 10/23/25 8:22 AM Result Value Ref Range Phosphorus 4.5 2.7 - 4.5 mg/dL High Sensitivity Troponin T Collection Time: 10/23/25 8:22 AM Result Value Ref Range High Sensitivity Troponin T 24 (H) <15 ng/L Delta (Change) NO PREVIOUS RESULT <3 proBNP, N-terminal Collection Time: 10/23/25 8:22 AM Result Value Ref Range proBNP, N-terminal 1,039 (H) <125 pg/mL TSH, HIGHLY SENSITIVE Collection Time: 10/23/25 8:22 AM Result Value Ref Range TSH, Highly Sensitive 6.26 (H) 0.27 - 4.20 mIU/L POCT Glucose, Fingerstick Collection Time: 10/23/25 9:47 AM Specimen: Blood Result Value Ref Range POC Glucose 108 (H) 65 - 99 mg/dL POCT Glucose, Fingerstick Collection Time: 10/23/25 12:06 PM Specimen: Blood Result Value Ref Range POC Glucose 96 65 - 99 mg/dL POCT Glucose, Fingerstick Collection Time: 10/23/25 4:52 PM Specimen: Blood Result Value Ref Range POC Glucose 74 65 - 99 mg/dL POCT Glucose, Fingerstick Collection Time: 10/23/25 6:09 PM Specimen: Blood Result Value Ref Range POC Glucose 125 (H) 65 - 99 mg/dL US Shake Loader Pelvis Transabdominal with US Shake Loader Transvaginal Final Result Significantly limited examination. The ovaries are not visualized secondary to overlying bowel gas and difficulty in positioning/compliance during the exam. Partial visualization of complex free intraperitoneal fluid. Ill-defined fluid collections with surrounding debris and septations as well as areas of increased vascularity within the right and left adnexal regions. Findings may represent abscesses/phlegmon. Frontal myometrial uterine fibroid measuring 4.8 cm in diameter. Interpreted by: Santiago Elena MD Weed Control Inspector I personally reviewed the images and the resident's preliminary report and AGREE with the report as it is now presented ([id number]). Image Guided Interventional CT Procedure (Results Pending) Image Guided Interventional Procedure (Results Pending) CT A/P (OSH): fluid collection, now containing gas, in the cul-de-sac, along the dorsal surface of the uterus. The margins are somewhat ill-defined due to lack of IV contrast. The collection measuresapproximately 9.3 x 4.4 x 5.5 cm, previously 6.3 x 2.2 x 3.7 cm (CC by AP by transverse). The pigtail catheter that had migrated out of the collection has been completely removed. Cosigned by Desiree Washington MD at 10/23/2025 7:53 PM EST Associated attestation - Desiree Washington MD - 10/23/2025 7:53 PM EST I have personally interviewed and examined the patient and reviewed Dr. Dang's note. I agree with the history, exam, assessment and plan as detailed in the resident/fellow's note with the following additions/exceptions/observations: Sis is now s/p IR placement of drains in left adnexa and presacral space and bilateral pcns. Fever anticipated s/p procedure, continue IV zosyn and supportive care for sepsis. Cultures pending from abscess as is cytology. Given recurrent TOA, must continue to consider neoplasm in ddx and MRI should be repeated to help assess for this. Hopefully her MADELINE will improve s/p pcn placement and will be able to use IV contrast for MRI. We will continue to follow closely with you. Appreciate IR, ID, urology consult and recommendations as well as excellent care from primary team. Vitals: 10/23/25 1500 10/23/25 1505 10/23/25 1510 10/23/25 1648 BP: (!) 153/65 124/61 BP Location: Patient Position: Pulse: (!) 102 (!) 102 99 Resp: 20 18 Temp: 97 ??F (36.1 ??C) (!) 101.3 ??F (38.5 ??C) TempSrc: Tympanic SpO2: 100% 98% 98% Weight: Intake/Output Summary (Last 24 hours) at 10/23/2025 1926 Last data filed at 10/23/2025 1600 Gross per 24 hour Intake 360 ml Output 3710 ml Net -3350 ml Recent Results (from the past 12 hours) Complete Blood Count, with Differential Collection Time: 10/23/25 8:22 AM Specimen: Blood Result Value Ref Range White Blood Cell Count 26.1 (H) 4.0 - 11.0 Thou/uL Platelet Count 425 150 - 450 Thou/uL Hemoglobin 7.6 (L) 11.7 - 15.7 g/dL Hematocrit 23.6 (L) 35.0 - 47.0 % Red Blood Cell Count 2.92 (L) 4.00 - 5.40 Mil/uL MCV 81 80 - 100 fL MCH 26.0 (L) 27.0 - 31.0 pg MCHC 32.2 30.0 - 36.0 g/dL RDW 16.1 (H) 11.5 - 14.5 % MPV 10.0 7.5 - 12.5 fL Myelocytes 1 % Neutrophils Man 84 % Lymphocytes Man 9 % Monocytes Man 4 % Basophils Man 2 % Abs Myelocytes 0.3 (H) 0 Thou/uL Abs Neutrophils Count (ANC) 21.9 (H) 2.0 - 7.5 Thou/uL Abs Lymphocytes Man 2.4 1.5 - 4.5 Thou/uL Abs Monocytes Man 1.0 0.2 - 1.5 Thou/uL Abs Basophils Man 0.5 (H) 0.0 - 0.2 Thou/uL Normochromic Present Normocytic Present Target Cells Occasional Smear Comment See Comment Basic Metabolic Panel Collection Time: 10/23/25 8:22 AM Specimen: Blood Result Value Ref Range Glucose 94 65 - 99 mg/dL Blood Urea Nitrogen (BUN) 43 (H) 8 - 21 mg/dL Creatinine 3.12 (H) 0.40 - 1.10 mg/dL eGFR 17 (L) >59 Sodium 134 (L) 136 - 145 mmol/L Potassium 3.7 3.4 - 5.3 mmol/L Chloride 101 98 - 107 mmol/L CO2 21 (L) 22 - 33 mmol/L Anion Gap 12 7 - 17 Calcium 8.0 (L) 8.7 - 10.5 mg/dL BUN/Creatinine Ratio 14 10.0 - 25.0 Ratio Hemoglobin A1c with Estimated Average Glucose Collection Time: 10/23/25 8:22 AM Specimen: Blood Result Value Ref Range Hemoglobin A1C 9.0 (H) <5.7 % Estimated Average Glucose 212 mg/dL Magnesium Collection Time: 10/23/25 8:22 AM Result Value Ref Range Magnesium 2.1 1.6 - 2.7 mg/dL Phosphorus Collection Time: 10/23/25 8:22 AM Result Value Ref Range Phosphorus 4.5 2.7 - 4.5 mg/dL High Sensitivity Troponin T Collection Time: 10/23/25 8:22 AM Result Value Ref Range High Sensitivity Troponin T 24 (H) <15 ng/L Delta (Change) NO PREVIOUS RESULT <3 proBNP, N-terminal Collection Time: 10/23/25 8:22 AM Result Value Ref Range proBNP, N-terminal 1,039 (H) <125 pg/mL TSH, HIGHLY SENSITIVE Collection Time: 10/23/25 8:22 AM Result Value Ref Range TSH, Highly Sensitive 6.26 (H) 0.27 - 4.20 mIU/L POCT Glucose, Fingerstick Collection Time: 10/23/25 9:47 AM Specimen: Blood Result Value Ref Range POC Glucose 108 (H) 65 - 99 mg/dL POCT Glucose, Fingerstick Collection Time: 10/23/25 12:06 PM Specimen: Blood Result Value Ref Range POC Glucose 96 65 - 99 mg/dL Aerobic culture (Gram stain included) Collection Time: 10/23/25 12:46 PM Specimen: Sacrum Aspirate, Abscess Result Value Ref Range Gram stain suggestive of Many neutrophils No squamous cells Red blood cells Gram positive cocci Culture PENDING Aerobic culture (Gram stain included) Collection Time: 10/23/25 1:38 PM Specimen: Ovary, left Aspirate, Abscess Result Value Ref Range Gram stain suggestive of Many neutrophils No squamous cells Red blood cells Gram positive cocci Culture PENDING POCT Glucose, Fingerstick Collection Time: 10/23/25 4:52 PM Specimen: Blood Result Value Ref Range POC Glucose 74 65 - 99 mg/dL POCT Glucose, Fingerstick Collection Time: 10/23/25 6:09 PM Specimen: Blood Result Value Ref Range POC Glucose 125 (H) 65 - 99 mg/dL VTE Time Out VTE risk assessment NOT done - Click here to document Chemical Prophylaxis heparin (porcine) 5000 unit/mL injection 5,000 Units Subcutaneous Every 8 hours scheduled Mechanical Prophylaxis SCDs are ordered - Bilateral (Knee High) O NEGATIVE Lab Results Component Value Date ABSCRN NEGATIVE 10/22/2025 Lab Results Component Value Date HGB 7.6 (L) 10/23/2025 HGB 7.4 (L) 10/23/2025 Lab Results Component Value Date PLT 425 10/23/2025 PLT 390 10/23/2025 Desiree Washington MD 10/23/2025 7:26 PM [facility] Please use TigerText to contact * Cinthya Hooker PA-C - 10/23/2025 12:27 PM EST Critical Care Progress Note Subjective Admitted to [facility] overnight IR consulted for drainage of abscesses and bilateral PCN placement Assessment & Plan Assessment Patient is a 55 year old female PMHx COPD (baseline 2 L nocturnal O2), HTN, HLD, T2DM, DANIEL, COPD (2L NC at night), schizophrenia, bipolar disorder, papillary thyroid carcinoma s/p thyroidectomy, NSCLC s/p LLL resection (02/2025), abnormal uterine bleeding, and recent hospitalization in ICU for urosepsis and TOA who presented to [place] 10/22 for AMS and found to have sepsis likely secondary to re-accumulation of tubo-ovarian abscess, as well as possible urosepsis. Transferred to and admittedto medical [place]. Principal Problem: Sepsis (HCC) Active Problems: Type 2 diabetes mellitus (HCC) Schizophrenia (HCC) Postoperative hypothyroidism Obstructive sleep apnea syndrome Gastroesophageal reflux disease Hyperlipidemia Hypertension Chronic obstructive lung disease (HCC) Bipolar disorder (HCC) Tubo-ovarian abscess Urinary tract infection MADELINE (acute kidney injury) Anemia Hypocalcemia Hypokalemia High anion gap metabolic acidosis LOS: 0 days Plan by system Neuro: Hx schizophrenia, bipolar disorder - Mental status: A&Ox3 - Ammonia 44 - Continue home Abilify 20 mg daily, Wellbutrin XL 300 mg daily, Haldol 2.5 mg daily, baclofen 10 mg TID - Continue Klonopin 1 mg BID PRN for anxiety - Holding Atarax 50 mg q6h PRN and gabapentin 600 mg 3 times daily - Tylenol PRN, Voltaren gel [address] Head at OSH 10/22: IMPRESSION: No acute intracranial abnormality. Behavioral/Sedation scales CAM-ICU Delirium Present: Negative [place] Agitation Sedation Scale (RASS) / Modified RASS: -1-->Wakes easily, drowsy Resp: Hx DANIEL, COPD on nocturnal 2 L NC, NSCLC of LLL s/p lobectomy (02/2025) - SpO2 90-97% on 2 L NC - Wean O2 as able, continue home nocturnal O2 - Continue Albuterol PRN - Continue Singulair 10 mg nightly - Holding home Claritin 10 mg daily Current Ventilator/Noninvasive Ventilator/Oxygen Settings O2 Device: nasal cannula Flow (L/min) (Oxygen Therapy): 2 CXR at OSH 10/22: IMPRESSION: Left-sided pleural effusion, mild to moderate. Mild interstitial lung edema in the correct clinical settings. CV: Hx HTN, HLD - HR 90s-110s, SBP 100s-140s - No troponin or proBNP checked on admission, will order - S/P D5LR at 100 mL/h x10 hrs - Continue Lipitor 40 mg nightly - Holding aspirin 81 mg nightly, lisinopril 2.5 mg daily - No echo on file GI: Elevated AST and alk phos Diet NPO; Meds, Sips of clears, Ice chips - Lactic acid 0.7 (0.9) - Tbili 0.3, AST/ALT 56/28, alk phos 125 - Albumin 3.5 - Continue PPI PO daily and Carafate 1 g 4 times daily - Continue bowel regimen CT A/P at OSH 10/22: IMPRESSION: Increasing size of presumed abscess in the cul-de-sac and gas. Increasing size of left adnexal collection including a multicystic ovary, fluid, and gas that was previously described as a probable tubo-ovarian abscess. Prior MRI stated that underlying neoplasm is not ruled out. Right adnexal changes concerning for tubo-ovarian abscess are stable. Small loculated left pleural effusion is stable. There is increased density in the dependent portion of the right lung base that probably represents atelectasis and pleural fluid, increased since the prior. Underlying pneumonia is not ruled out. Stable small pericardial effusion. Stable moderate hydronephrosis, likely secondary to inflammatory changes in the pelvis. Renal: MADELINE, mild hyponatremia, moderate hydronephrosis - BUN/Cr 43/3.12 (45/3.83) - Na 134 (135) - K 3.7 (3.2), replaced - HCO3: 21 (20), A (19) - Urology notified re: hydronephrosis via TT. Plan for IR to place bilateral PCNs Petty: yes Petty indication: Strict I/O Intake & Output Intake/Output Summary (Last 24 hours) at 10/23/2025 1227 Last data filed at 10/23/2025 1059 Gross per 24 hour Intake 360 ml Output 2100 ml Net -1740 ml Endo: Hx T2DM, papillary thyroid carcinoma s/p thyroidectomy - FS 60s-90s - Monitor FS q4h - FELI every 4 hours - Check TSH - Continue Synthroid 200 mcg daily BENDER MACHINE: , TOA, Hx abnormal uterine bleeding, bilateral tubal ligation (1999) - BENDER MACHINE following, appreciate recommendations - Plan for IR consult for drain placement of pelvic abscess Transabdominal Pelvic U/S 10/23: IMPRESSION: Significantly limited examination. The ovaries are not visualized secondary to overlying bowel gas and difficulty in positioning/compliance during the exam. Partial visualization of complex free intraperitoneal fluid. Ill-defined fluid collections with surrounding debris and septations as well as areas of increased vascularity within the right and left adnexal regions. Findings may represent abscesses/phlegmon. Frontal myometrial uterine fibroid measuring 4.8 cm in diameter. Heme/Onc: Anemia, Hx LLL cancer s/p lobectomy (02/2025), papillary thyroid carcinoma s/p thyroidectomy - H/H: 7.6/23.6 (7.4/22.6) - PLT: 425 (390) - INR: 1.3 - Continue iron 325 mg daily - Iron: 16 (L), Iron sat: 13 (L) - Ferritin: 1172 (H) - Continue vitamin C tablet daily - DVT ppx: heparin subcu ID: Urosepsis, TOA - Afebrile, WBC 26.1 (26.5) - MRSA negative - Blood cultures 10/22: no growth to date - Urine culture 10/22: pending (UA: mod LE, > 25 WBCs, bacteria present) - ID following, appreciate recommendations - Continue cefepime, clindamycin, vancomycin - S/p Zosyn - IR plan for drain placement into abscess and bilateral PCN placement - Drain culture from OSH negative and cytology negative for malignant cells - GC/CT and trichomonas negative at OSH but was positive for BV s/p treatment with Flagyl Vascular access: PIV IV access Mobility: Progressive Mobility Level Achieved: Level 0,PT/OT: No GI PPx: PPI DVT PPx: SC Heparin VTE Risk Assessment VTE Time Out VTE risk assessment NOT done - Click here to document Chemical Prophylaxis heparin (porcine) 5000 unit/mL injection 5,000 Units Subcutaneous Every 8 hours scheduled Mechanical Prophylaxis SCDs are ordered - Bilateral (Knee High) Drips: dextrose 5% in lactated ringers, 100 mL/hr, Last Rate: 100 mL/hr (10/23/25 0256) Lines: Peripheral IV - Single Lumen (Adult) 10/22/25 1851 median vein (underside of arm), right (Active) Number of days: 1 Peripheral IV - Single Lumen (Adult) 10/22/25 1851 median vein (underside of arm), left 20 gauge (Active) Number of days: 1 Enteric Access and Petty: Urethral Catheter (Adult) 10/22/25 1800 (Active) Number of days: 1 Restraints: N/A Code: Full Dispo: SD, per Dr. Rodriguez Patient macedonian speaking. Objective Last Vitals: Pulse:92, Resp:16, BP:BP Min: 101/50 Max: 108/57 MAP: SpO2:97 % CVP: Temp Last 24 hrs: Temp Min: 98.7 ??F (37.1 ??C) Max: 99.1 ??F (37.3 ??C) Physical Exam: General appearance: adult female awake and alert, in NAD Lungs: CTA b/l, on 2 L NC Heart: RRR S1S2 Abdomen: abdomen soft, +BS, NTND Extremities: no edema Neurologic: grossly normal, A+O x3 Labs: Recent Labs 10/22/25181710/23/2515410/23/25 0822 WBC 26.9* 26.5* 26.1* HGB 7.0* 7.4* 7.6* HCT 21.6* 22.6* 23.6* PLT 389 390 425 MCV 80 80 81 MCH 25.8* 26.2* 26.0* MCHC 32.4 32.7 32.2 RDW 16.0* 16.1* 16.1* MONOABS 1.1 -- 1.0 Recent Labs 10/22/25181710/23/25 0822 BUN 45* 43* CREAT 3.83* 3.12* NA 135* 134* K 3.2* 3.7 CO2 20* 21* CL 96* 101 MG -- 2.1 PHOS -- 4.5 AST 56* -- ALT 28 -- PROT 7.2 -- Recent Labs 10/22/251817 PTT 26 INR 1.3 Medications Medication/MAR Report: Medications Scheduled Medication Ordered Dose/Rate, Route, Frequency Last Action ARIPiprazole (ABILIFY) tablet 20 mg 20 mg, PO, Daily Given, 20 mg at 10/23 1100 ascorbic acid (VITAMIN C) tablet 250 mg 250 mg, PO, Daily Given, 250 mg at 10/23 1047 [Provider Held] aspirin enteric coated (ECOTRIN LOW STRENGTH) tablet 81 mg On hold since today at 0155 until manually unheld; held by Antoni Walker Reason: Other - Comment requiredHold Comment: Unclear indication for home ASA On hold since today at 0155 until manually unheld Hold reason: Other - Comment required, Hold comment: Unclear indication for home ASA 81 mg, PO, Nightly Ordered atorvastatin (LIPITOR) tablet 40 mg 40 mg, PO, Nightly Ordered baclofen (LIORESAL) tablet 10 mg 10 mg, PO, TID Given, 10 mg at 10/23 1047 buPROPion (WELLBUTRIN XL) 24 hr tablet 300 mg 300 mg, PO, QAM Given, 300 mg at 10/23 1046 cefepime (MAXIPIME) 1 g in sodium chloride-MBP (NS) 100 mL IVPB-MBP 1 g, IV, Q24H Stopped, 10/23 0600 clindamycin (CLEOCIN) IVPB 900 mg in 50 mL D5W (premix) 900 mg, IV, Q8H Stopped, 10/23 1120 diclofenac (VOLTAREN) 1 % gel 2 g 2 g, TOP, 4x Daily Given, 2 g at 10/23 1126 docusate sodium (COLACE) capsule 100 mg 100 mg, PO, BID Ordered ferrous sulfate EC tablet 325 mg 325 mg, PO, Daily Given, 325 mg at 10/23 1047 [Provider Held] gabapentin (NEURONTIN) tablet 600 mg On hold since today at 0127 until manually unheld; held by Sisi Freitas MDHold Reason: Change in vital signs On hold since today at 0127 until manually unheld Hold reason: Change in vital signs 600 mg, PO, TID Ordered haloperidol (HALDOL) tablet 2.5 mg 2.5 mg, PO, BID Given, 2.5 mg at 10/23 1047 heparin (porcine) 5000 unit/mL injection 5,000 Units 5,000 Units, SC, Q8H [facility] Ordered insulin lispro (HumaLOG/ADMELOG) 100 units/mL injection 1-5 Units 1-5 Units, SC, Q4H [facility] Ordered levothyroxine (SYNTHROID, LEVOTHROID) tablet 200 mcg 200 mcg, PO, Daily 6AM Given, 200 mcg at 10/23 1047 [Provider Held] lisinopril (PRINIVIL,ZeSTRIL) tablet 2.5 mg On hold since today at 0127 until manually unheld; held by Antoni Walker Reason: Change in vital signs On hold since today at 0127 until manually unheld Hold reason: Change in vital signs 2.5 mg, PO, Daily Ordered [Provider Held] loratadine (CLARITIN) tablet 10 mg On hold since today at 0127 until manually unheld; held by Antoni Walker Reason: Change in vital signs On hold since today at 0127 until manually unheld Hold reason: Change in vital signs 10 mg, PO, QAM Ordered montelukast (SINGULAIR) tablet 10 mg 10 mg, PO, Nightly Ordered PANTOprazole (PROTONIX) EC tablet 40 mg 40 mg, PO, Daily Given, 40 mg at 10/23 1047 vitamin with iron and folic acid (RIGHT STEP ) tablet 1 tablet 1 tablet, PO, Daily Given, 1 tablet at 10/23 1049 sucralfate (CARAFATE) tablet 1 g 1 g, PO, 4x daily Given, 1 g at 10/23 1047 vancomycin (VANCOCIN) IV dosing PER PHARMACY PROTOCOL No Dose/Rate, Protocol, Pharmacy Protocol Orders Ordered vancomycin (VANCOCIN) 1,000 mg in sodium chloride (NS) 0.9 % 250 mL IVPB-WTD 1,000 mg, IV, Once New Bag, 1,000 mg at 10/23 1059 Continuous Medication Ordered Dose/Rate, Route, Frequency Last Action dextrose 5 % in lactated ringers (D5LR) infusion 100 mL/hr, IV, Continuous New Bag, 100 mL/hr at 10/23 0256 PRN Medication Ordered Dose/Rate, Route, Frequency Last Action acetaminophen (TYLENOL) tablet 975 mg 975 mg, PO, Q6H PRN Given, 975 mg at 10/23 1126 albuterol (PROVENTIL HFA; VENTOLIN HFA) inhaler 2 puff 2 puff, IN, Q4H PRN Ordered clonazePAM (KlonoPIN) tablet 1 mg 1 mg, PO, Q12H PRN Ordered dextrose 50 % solution 12.5 g (Or Linked Group #1) 12.5 g, IV, Q15 Min PRN Ordered dextrose 50 % solution 25 g (Or Linked Group #1) 25 g, IV, Q15 Min PRN Ordered glucagon (GLUCAGEN) injection 1 mg (Or Linked Group #1) 1 mg, IM, Daily PRN Ordered glucose (GLUTOSE 15) 40 % oral gel 37.5 g (Or Linked Group #1) 1 Tube, PO, Q15 Min PRN Ordered glucose (GLUTOSE 15) 40 % oral gel 75 g (Or Linked Group #1) 2 Tube, PO, Q15 Min PRN Ordered [Provider Held] hydrOXYzine HCl (ATARAX) tablet 50 mg On hold since today at 0127 until manually unheld; held by Antoni Walker Reason: Change in vital signs On hold since today at 0127 until manually unheld Hold reason: Change in vital signs 50 mg, PO, Q6H PRN Ordered polyethylene glycol (miraLAx) packet 17 g 17 g, PO, Daily PRN Ordered Sign: Cinthya Hooker PA-C 10/23/2025 12:27 PM * Allison Dang MD - 10/23/2025 7:45 AM EST BENDER MACHINE Progress Note Assessment & Plan Assessment 55 y.o. with a history of both urosepsis and suspected reaccumulation of tubo-ovarian abscess after previous drainage in September, now admitted to medicine with diagnosis of sepsis. Source not entirely clear given patient has no CMT or adnexal tenderness on exam and does have continued moderate hydronephrosis. Currently clinical status improved from OSH, she remains afebrile. For TOA, appropriate to treat non-surgically at this time. Plan TOA - IR consulted for possible drainage, if this goes forward recommend cultures and cytology - Prior TOA drainage culture and cytology negative. In a post-menopausal patient, may consider tumor markers for tubo-ovarian abscess however given cytology negative for malignant cells may be less beneficial - ID consulted to determine best antibiotic regimen, currently on cefepime, clindamycin, vancomycin - Recommend obtaining MRI images from outside hospital. - MRI read at OSH noting thickening of rectum. Could consider colonoscopy to rule out rectal neoplasm. BV - S/p Flagyl at OSH Other acute issues being managed by primary medical team, appreciate care Allison Dang MD PGY-3 [facility] OBGYN residency Pager #[phone] Also available on Elcho Text Please contact Gynecology on TT with any questions Subjective Overall doing okay. Pt reports she has no abdominal or pelvic pain. Denies feeling bloated, nausea or vomiting. She is NPO. She does report having loose stool. She can make it to the bedside commode with assistance but often just soils the towels underneath her. I helped her to remove these towels and move her up in the bed which helped her comfort. She has no concerns or questions for OBGYN right now and I assured her we would continue to follow. Objective Physical exam Last Vitals: Vitals: 10/23/25 0341 BP: (!) 108/57 Pulse: 90 Resp: 18 Temp: 98.8 ??F (37.1 ??C) SpO2: 96% Weight: Gen: NAD, AO x3, laying in bed Pulm: No increased WOB Abd: Moderately distended, tympanic, no rebound or guarding : patient with loose stool on towels between her legs Labs: Recent Results (from the past 24 hours) POCT Glucose, Fingerstick Collection Time: 10/22/25 6:12 PM Specimen: Blood Result Value Ref Range POC Glucose 96 65 - 99 mg/dL Type and Screen Collection Time: 10/22/25 6:15 PM Specimen: Blood Result Value Ref Range ABO/Rh O NEGATIVE Antibody Screen NEGATIVE Specimen Expiration 10/25/2025 Blood Bank Comment Second Sample needed for Blood Transfusion Complete Blood Count, with Differential Collection Time: 10/22/25 6:18 PM Specimen: Blood Result Value Ref Range White Blood Cell Count 26.9 (H) 4.0 - 11.0 Thou/uL Platelet Count 389 150 - 450 Thou/uL Hemoglobin 7.0 (L) 11.7 - 15.7 g/dL Hematocrit 21.6 (L) 35.0 - 47.0 % Red Blood Cell Count 2.71 (L) 4.00 - 5.40 Mil/uL MCV 80 80 - 100 fL MCH 25.8 (L) 27.0 - 31.0 pg MCHC 32.4 30.0 - 36.0 g/dL RDW 16.0 (H) 11.5 - 14.5 % MPV 9.7 7.5 - 12.5 fL Bands Man 6 % Neutrophils Man 80 % Lymphocytes Man 9 % Monocytes Man 4 % Basophils Man 1 % Abs Neutrophils Count (ANC) 23.1 (H) 2.0 - 7.5 Thou/uL Abs Lymphocytes Man 2.4 1.5 - 4.5 Thou/uL Abs Monocytes Man 1.1 0.2 - 1.5 Thou/uL Abs Basophils Man 0.3 (H) 0.0 - 0.2 Thou/uL Normochromic Present Normocytic Present Comprehensive Metabolic Panel Collection Time: 10/22/25 6:18 PM Specimen: Blood Result Value Ref Range Glucose 85 65 - 99 mg/dL Blood Urea Nitrogen (BUN) 45 (H) 8 - 21 mg/dL Creatinine 3.83 (H) 0.40 - 1.10 mg/dL eGFR 13 (L) >59 Sodium 135 (L) 136 - 145 mmol/L Potassium 3.2 (L) 3.4 - 5.3 mmol/L Chloride 96 (L) 98 - 107 mmol/L CO2 20 (L) 22 - 33 mmol/L Calcium 7.8 (L) 8.7 - 10.5 mg/dL Alkaline Phosphatase 125 (H) 32 - 122 U/L Aspartate Aminotrans (AST) 56 (H) 10 - 50 U/L Alanine Aminotrans (ALT) 28 10 - 50 U/L Bilirubin, Total 0.3 0.2 - 1.0 mg/dL Protein, Total 7.2 6.3 - 8.3 g/dL Albumin 3.5 3.5 - 5.0 g/dL BUN/Creatinine Ratio 12 10.0 - 25.0 Ratio Globulin 3.7 1.5 - 3.9 g/dL Albumin/Globulin Ratio 0.9 (L) 1.0 - 3.0 Ratio Anion Gap 19 (H) 7 - 17 Lipase Collection Time: 10/22/25 6:18 PM Specimen: Blood Result Value Ref Range Lipase 32 13 - 60 U/L INR Collection Time: 10/22/25 6:18 PM Specimen: Blood Result Value Ref Range Anticoagulant OTHER AGENT OR UNKNOWN Prothrombin Time (PT) 15.0 (H) 10.0 - 13.5 seconds INR 1.3 Lactate Level X 2 Collection Time: 10/22/25 6:18 PM Specimen: Blood Result Value Ref Range Lactic Acid 0.9 0.5 - 1.9 mmol/L APTT Collection Time: 10/22/25 6:18 PM Specimen: Blood Result Value Ref Range Anticoagulant NO ANTI COAGULANT MEDS Partial Thromboplastin Time (PTT) 26 25 - 36 seconds Urinalysis with Reflex to Microscopic and Culture Collection Time: 10/22/25 6:19 PM Specimen: Straight Urinary Catheter; Urine Result Value Ref Range Color Yellow Clarity Cloudy Specific [place] 1.010 1.005 - 1.030 pH 5.0 5.0 - 8.0 Leukocyte Esterase Moderate (A) Negative Nitrite Negative Negative Protein Trace (A) Negative mg/dL Glucose Negative Negative mg/dL Ketones Negative Negative mg/dL Blood Small (A) Negative Bilirubin Negative Negative RBC 1 0 - 4 per hpf WBC >25 (H) 0 - 4 per hpf Epithelial Cells 2 per hpf Casts 17 (H) 0 - 4 per lpf Bacteria Present (A) Absent Hyaline Casts Present per lpf Sodium, Urine, Random Collection Time: 10/22/25 6:19 PM Specimen: Urine Result Value Ref Range Sodium, Urine Random 21 mmol/L Potassium, Urine, Random Collection Time: 10/22/25 6:19 PM Specimen: Urine Result Value Ref Range Potassium, Urine (Random) 22 mmol/L Chloride, Urine, Random Collection Time: 10/22/25 6:19 PM Specimen: Urine Result Value Ref Range Chloride, Urine, Random <20 mmol/L Creatinine, urine, random Collection Time: 10/22/25 6:19 PM Specimen: Urine Result Value Ref Range Creatinine, Urine, Random 88 mg/dL ABO Confirmation Collection Time: 10/22/25 6:20 PM Specimen: Blood Result Value Ref Range ABO/Rh O NEGATIVE Blood Culture Collection Time: 10/22/25 6:57 PM Specimen: Blood, Peripheral Line Blood Result Value Ref Range Culture Sterile <24 hours ECG 12 lead Collection Time: 10/22/25 7:01 PM Result Value Ref Range Ventricular rate 116 BPM Atrial rate 116 BPM P-R interval 170 ms QRS duration 90 ms Q-T interval 322 ms QTC calculation (Bazett) 448 ms P axis 64 degrees R axis -12 degrees T axis 71 degrees Blood Culture Collection Time: 10/22/25 7:18 PM Specimen: Blood, Peripheral Line Blood Result Value Ref Range Culture Sterile <24 hours Lactate Level X 2 Collection Time: 10/22/25 9:04 PM Specimen: Blood Result Value Ref Range Lactic Acid 0.7 0.5 - 1.9 mmol/L Nasal MRSA Screen, PCR Collection Time: 10/23/25 12:05 AM Specimen: Anterior Nares, bilateral; Swab, Anterior Nares Result Value Ref Range MRSA Result Not Detected Not Detected Ammonia Level Collection Time: 10/23/25 1:55 AM Specimen: Blood Result Value Ref Range Ammonia, Plasma 44 11 - 51 umol/L COMPLETE BLOOD COUNT, WITHOUT DIFFERENTIAL Collection Time: 10/23/25 1:55 AM Specimen: Blood Result Value Ref Range White Blood Cell Count 26.5 (H) 4.0 - 11.0 Thou/uL Platelet Count 390 150 - 450 Thou/uL Hemoglobin 7.4 (L) 11.7 - 15.7 g/dL Hematocrit 22.6 (L) 35.0 - 47.0 % Red Blood Cell Count 2.82 (L) 4.00 - 5.40 Mil/uL MCV 80 80 - 100 fL MCH 26.2 (L) 27.0 - 31.0 pg MCHC 32.7 30.0 - 36.0 g/dL RDW 16.1 (H) 11.5 - 14.5 % MPV 10.0 7.5 - 12.5 fL Vancomycin Level, Random Collection Time: 10/23/25 2:22 AM Specimen: Blood Result Value Ref Range Vancomycin, Random 16 mg/L Time of Last Dose Information not given FERRITIN Collection Time: 10/23/25 2:22 AM Result Value Ref Range Ferritin 1,172 (H) 30 - 400 ug/L Iron and Total Iron Binding Capacity Collection Time: 10/23/25 2:22 AM Result Value Ref Range Iron 16 (L) 59 - 151 ug/dL UIBC 110 (L) 112 - 346 ug/dL Total Iron Binding Capacity 126 100 - 400 ug/dL Iron Sat 13 (L) 20 - 50 % VITAMIN B12 Collection Time: 10/23/25 2:22 AM Result Value Ref Range Vitamin B12 477 243 - 894 pg/mL POCT Glucose, Fingerstick Collection Time: 10/23/25 2:46 AM Specimen: Blood Result Value Ref Range POC Glucose 68 65 - 99 mg/dL US Shake Loader Pelvis Transabdominal with US Shake Loader Transvaginal Final Result Significantly limited examination. The ovaries are not visualized secondary to overlying bowel gas and difficulty in positioning/compliance during the exam. Partial visualization of complex free intraperitoneal fluid. Ill-defined fluid collections with surrounding debris and septations as well as areas of increased vascularity within the right and left adnexal regions. Findings may represent abscesses/phlegmon. Frontal myometrial uterine fibroid measuring 4.8 cm in diameter. Interpreted by: Santiago Elena MD Weed Control Inspector I personally reviewed the images and the resident's preliminary report and AGREE with the report as it is now presented ([id number]). CT A/P (OSH): fluid collection, now containing gas, in the cul-de-sac, along the dorsal surface of the uterus. The margins are somewhat ill-defined due to lack of IV contrast. The collection measuresapproximately 9.3 x 4.4 x 5.5 cm, previously 6.3 x 2.2 x 3.7 cm (CC by AP by transverse). The pigtail catheter that had migrated out of the collection has been completely removed. Cosigned by Desiree Washington MD at 10/23/2025 11:44 AM EST Associated attestation - Desiree Washington MD - 10/23/2025 11:44 AM EST I received sign-out from and assumed the care of this patient from Dr. Doss at 0800. I have reviewed the medical record since admission and have spoken with Bibiana Mcwilliams MD from IR. We discussed the need for immediate drainage of this recurrent TOA and that due to inflammatory changes in the pelvis causing bilateral hydronephrosis and MADELINE patient also needs bilateral PCNs. Dr. Mcwilliams plans to perform all of these procedures today. I have also notified [facility] Onc (Dr. Vitor Alfaro) about this patient in the event that she worsens clinically and we need to intervene surgically. Ideally, drainage can be accomplished by IR procedure. We will continue to follow closely. Appreciate excellent care from medicine, ID and IR teams. Desiree Washington M.D. [facility] - [address] [address] 10/23/2025, 11:36 AM Available on Elcho Text * Mehnaz Rodriguez MD - 10/23/2025 5:10 AM EST Images from the original note were not included. Division of Pulmonary, Critical Care, and Sleep Medicine [address] [facility], [address], [place] [address] Critical Care Note Assessment 55 y.o. 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, left lower lung cancer, abnormal uterine bleeding and recent h ospitalization for urosepsis who presented from an outside hospital with encephalopathy and found to have sepsis secondary to a tubo-ovarian abscess and a UTI Critical Care Admission Drivers: Sepsis Tubo-ovarian abscess Urinary tract infection Leukocytosis Normocytic anemia Hypokalemia Anion gap metabolic acidosis Secondary Active Problems: COPD Hypertension Hyperlipidemia Diabetes Obstructive sleep apnea Schizophrenia Bipolar disorder History of papillary carcinoma of the thyroid status post thyroidectomy History of left lower lung cancer s/p lobectomy Abnormal uterine bleeding Total LOS: 0 days Overnight No active issues overnight Plan by System I performed rounds on the medical unit with the entire critical care team and we discussed the events below while developing the daily treatment plan: Neuro: On home abilify, wellbutrin, Hold gabapentin and atarax CT head at OSH on 10/22/2025 with no acute intracranial abnormalities. Will ask for formal radiology reads to be pushed through Resp: O2 Device: nasal cannula Flow (L/min) (Oxygen Therapy): 2 No results for input(s): PHA , PCO2 , PO2 , HCO3 in the last 72 hours. Nocturnal oxygen of 2L, will wean as tolerated LLL lobectomy in February of this year Continue as needed albuterol Nightly Singulair Daily Claritin CV: Hemodynamically stable Will check troponin and proBNP Holding ASA and lisinopril On lipitor Off d5LR >Echo: None on file GI: AST slightly elevated, will continue to monitor Alk phose also elevated PPI Continue Carafate Bowel regimen N.p.o. given upcoming procedure CT Abdomen and pelvis on 10/22/2025: IMPRESSION: Increasing size of presumed abscess in the cul-de-sac and gas. Increasing size of left adnexal collection including a multicystic ovary, fluid, and gas that was previously described as a probable tubo-ovarian abscess. Prior MRI stated that underlying neoplasm is not ruled out. Right adnexal changes concerning for tubo-ovarian abscess are stable. Small loculated left pleural effusion is stable. There is increased density in the dependent portion of the right lung base that probably represents atelectasis and pleural fluid, increased since the prior. Underlying pneumonia is not ruled out. Stable small pericardial effusion. Stable moderate hydronephrosis, likely secondary to inflammatory changes in the pelvis. LACTIC Date/Time Value Ref Range Status 10/22/2025 2104 0.7 0.5 - 1.9 mmol/L Final 10/22/2025 1818 0.9 0.5 - 1.9 mmol/L Final >Nutrition: Diet NPO; Meds, Sips of clears, Ice chips Renal: Na 134 MADELINE Urology and IR consulted Plan for bilateral PCNs given hydronephrosis Maintain Petty >Intake & Output No intake or output data in the 24 hours ending 10/23/25 0511 No intake/output data recorded. Endo: Will check TSH FS Q4 SSI Continue Synthroid Gynecology: Shake Loader following and plan for IR for drain placement of pelvic abscess Transabdominal Pelvic U/S 10/23: IMPRESSION: Significantly limited examination. The ovaries are not visualized secondary to overlying bowel gas and difficulty in positioning/compliance during the exam. Partial visualization of complex free intraperitoneal fluid. Ill-defined fluid collections with surrounding debris and septations as well as areas of increased vascularity within the right and left adnexal regions. Findings may represent abscesses/phlegmon. Frontal myometrial uterine fibroid measuring 4.8 cm in diameter. Heme/Onc: History of non-small cell lung cancer of the left lower lobe status post lobectomy in February 2025 Probably carcinoma of the thyroid status post thyroidectomy H/H stable On Iron, checked overnight Subcu heparin ID: BENDER MACHINE following UTI Afebrile, WBC 26 BC, urine cx pending Got flagyl at OSH for BV Status post 1 dose of Zosyn IR to place drain into abscess and bilateral PCN Per reports, drain culture from outside hospital is negative and cytology is negative for malignantcells >Antibiotics: Anti-infectives (From admission, onward) Start Dose/Rate Route Frequency Ordered Stop 10/23/25 0359 vancomycin (VANCOCIN) 1,000 mg in sodium chloride (NS) 0.9 % 250 mL IVPB-WTD 1,000 mg 166.7 mL/hr over 90 Minutes Intravenous Once 10/23/25 0358 10/23/25 1558 10/23/25 0154 cefepime (MAXIPIME) 1 g in sodium chloride-MBP (NS) 100 mL IVPB-MBP 1 g 33.3 mL/hr over 3 Hours Intravenous Every 24 hours 10/23/2515210/23/25146 vancomycin (VANCOCIN) IV dosing PER PHARMACY PROTOCOL Pharmacy Protocol Orders Pharmacy Protocol Orders 10/23/2514610/23/25146 clindamycin (CLEOCIN) IVPB 900 mg in 50 mL D5W (premix) 900 mg 100 mL/hr over 30 Minutes Intravenous Every 8 hours 10/23/25146 >Recent Cultures: No results found for: CULTURE ICU Checklist Drips: dextrose 5% in lactated ringers, 100 mL/hr, Last Rate: 100 mL/hr (10/23/25 0256) Lines: Restraints: Mobility: Petty: GI Prophylaxis (if needed): PPI VTE Time Out VTE risk assessment NOT done - Click here to document Chemical Prophylaxis Mechanical Prophylaxis SCDs are ordered - Bilateral (Knee High) Code Status and Disposition CODE STATUS: Full Code DISPOSITION: SDU however downgrade if she remains hemodynamically stable following IR I spent 37 minutes of Critical Care time in multiple visits throughout the day for collaboration/coordination of care exclusive of time spent performing separately billable medical procedures. I affirm that this patient is critically ill and at high risk for sudden, fatal deterioration due to one or more of the above active issues. I managed/supervised life- or organ-supporting interventions that require frequent physician assessment and reassessment. Critical care time was spent, but not limited to, the review of laboratory test results, medications, relevant radiology and discussing this critically ill patient's care with other medical staff in the unit or at the nursing station [facility] floor where the patient is located. My full attention was given to the management of this patient and I was immediately available during this same time. Objective SpO2:96 %,O2 Device: nasal cannula, Flow (L/min) (Oxygen Therapy): 2, Temp Last 24 hrs: Temp Min: 98.7 ??F (37.1 ??C) Max: 99.1 ??F (37.3 ??C) WBC Trend White Blood Cell Count Date Value Ref Range Status 10/23/2025 26.5 (H) 4.0 - 11.0 Thou/uL Final 10/22/2025 26.9 (H) 4.0 - 11.0 Thou/uL Final Last Vitals: Pulse:90, Resp:18, BP:BP Min: 100/47 Max: 144/67 MAP: Physical Exam: General: alert, appears stated age and cooperative HEENT: supple without LAD Lungs: clear to auscultation bilaterally Chest wall: no tenderness Heart: regular rate and rhythm, S1, S2 normal, no murmur, click, rub or gallop Abdomen: soft, non-tender; bowel sounds normal; no masses, no organomegaly Extremities: atraumatic, no cyanosis or edema Neuro: non focal Skin: Warm, no rash I reviewed the prescribed Medications and new Laboratory Blood Work I reviewed all new Imaging Studies (actual images) and compared to prior where applicable Sign: Mehnaz Rodriguez MD 10/23/2025 5:11 AM * Sylvain Elliott PharmD - 10/23/2025 3:58 AM EST Pharmacokinetic Consult - Vancomycin Dosing (for patients with acute kidney injury or those on renal replacement therapy) Sis Valdez is a 55 y.o. female who has been consulted for vancomycin dosing for intra-abdominal abscess. Height: Last ht No data found for Ht Weight: Last wt 10/22/25 96.6 kg (212 lb 15.4 oz) IBW: Patient height not recorded Labs: Creatinine Date/Time Value Ref Range Status 10/22/2025 06:18 PM 3.83 (H) 0.40 - 1.10 mg/dL Final Blood Urea Nitrogen (BUN) Date/Time Value Ref Range Status 10/22/2025 06:18 PM 45 (H) 8 - 21 mg/dL Final Vancomycin, Random Date/Time Value Ref Range Status 10/23/2025 02:22 AM 16 mg/L Final Comment: No reference range established for random levels. CrCl cannot be calculated (Unknown ideal weight.). Assessment: Patient arrives from outside hospital where they were receiving vancomycin. Patient's creatinine is elevated at 3.83 over an unknown baseline. A random vancomycin level returned a value of 16mcg/mL, which is within the target range of 15-20mcg/mL. At this time, will give a one-time doseof 1000mg. The pharmacy team will plan to obtain a random level within 24 hours. Pharmacy will continue to follow the patient's renal function, culture results, and clinical progress daily. Sylvain Elliott, [place] A Document for: [facility] Title: Vancomycin: Pharmacy to Dose_[facility] Purpose: To provide instruction on pharmacy to dose vancomycin service Scope: Prescribers and pharmacists Protocol: Prescriber Responsibilities: Prescribers may order ???vancomycin dosing by pharmacy??? to authorize pharmacy to manage vancomycin therapy. Prescriber must document the indication for vancomycin. Pharmacist Responsibilities: For orders entered as ???vancomycin dosing by pharmacy???, the pharmacist will dose, monitor, and modify vancomycin therapy. The pharmacist will check the patient???s record for doses of vancomycin administered prior to the implementation of the protocol, will determine the time of administration of the first protocol dose, and will, if necessary, call the nurse to schedule doses accordingly. Pharmacists will demonstrate competency on a regular basis. All vancomycin orders and related labs should be ordered per protocol, no cosign required. Protocol Exclusions: Adult patients weighing less than 20 kg Trough-based monitoring in conjunction with the provider and an infectious diseases clinical pharmacist should be utilized. Pediatric patients (less than 16 years of age) An infectious diseases clinical pharmacist should be contacted for assistance with dosing. patients (Less than 28 days of age) Contact [facility] for assistance. AUC Therapeutic Drug Monitoring: An AUC/ALYSSA (area under the curve/minimum inhibitory concentration) ratio of greater than or equal to 400 is considered the optimal pharmacokinetic/pharmacodynamic efficacy target for vancomycin. The literature supporting this target is mainly derived from studies of patients with MRSA bloodstream infections. An ALYSSA of less than or equal to 1 mg/L should be assumed for empiric dosing. Alternative agents arerecommended when the ALYSSA is 2 mg/L or greater. Data suggests that an AUC less than 400 potentiates the emergence of resistance. A target AUC of 400 to 600 is recommended to achieve clinical efficacy while improving patient safety. For some infections, such as INSULATION POWER UNIT TENDER infections, a higher range of 500-600 may be considered if possible. Trough-based monitoring is no longer recommended for most patients based on efficacy and nephrotoxicity data. Bayesian dosing software, like InsightRx???,utilizes a population pharmacokinetic model coupled with an individual patient???s observed drug concentrations to calculate the patient???s optimal vancomycin dosing regimen. InsightRx??? should be utilized to dose all vancomycin regimens unless otherwise noted in the protocol. Vancomycin Dosing Recommendations Dosing: Available Doses: 500 mg, 750 mg, 1000 mg, 1250 mg, 1500 mg, 1750 mg, 2000 mg, 2500 mg Doses should be rounded to the nearest 250 mg Maximum Doses: Maximum loading dose: 2500 mg Maximum maintenance dose: 2000 mg Minimum Dose: 500 mg Dosing Frequencies: Every 6, 8, 12, 18, 24, 36, or 48 hours For ease of administration, consider preferentially using every 8, 12, or 24- hour dosing regimens when possible and if clinically appropriate based on pharmacokinetic estimates. All doses should be based on actual body weight Vancomycin Infusion Times: Doses of 1.5 g or less will be infused over 1.5 hours. Doses of 1.75 to 2 g will be infused over 2 hours Doses of 2.5 g will be infused over 2.5 hours Loading Doses: Loading doses should be administered to all patients who are not currently on vancomycin. Loading doses are solely dependent on the weight of the patient. Renal function should not be used as a deciding factor to order or the amount of the loading dose. (See Table 1) Loading doses can be entered in InsightRx??? within the loading dose feature to check that simulated PK exposure predictions fall within the target range. The loading dose feature in InsightRx??? will only appear when no doses have been documented in the patient???s chart. Table 1 Loading doses for patients based on actual body weight: Weight: Vancomycin Dose: 20-29 kg 500 mg 30-39 kg 750 mg 40-49 kg 1000 mg 50-59 kg 1250 mg 60-69 kg 1500 mg 70-79 kg 1750 mg 80-99 kg 2000 mg 100 kg or more 2500 mg Maintenance Doses: InsightRx??? will be utilized to determine maintenance regimens in all patients with stable renal function using the DoseAssist function. InsightRx??? recommends doses based on the patient???s age, weight, renal function, predicted trough and AUC, and richly sampled vancomycin data as the Bayesian prior. InsightRx??? will calculate the predicated 24-hour AUC at steady state (AUC24, ss), the trough concentration at steady state (Ctrough, ss), the probability of an AUC24, ss greater than or equal to 400 (PAUC), the probability of Ctrough,ss greater than or equal to 20 mg/L (Pconc), and the probability of a nephrotoxic event (Tox.). Pharmacists should aim to keep the Pconc and Tox. column values as close to 0% as possible, while maximizing PAUC closest to 100%. Maintenance Doses & Unstable Renal Function: When dosing patients with acute kidney injury or unstable renal function, InsightRx??? should stillbe utilized to determine the appropriate regimen. In the setting of significant renal impairment, an orange warning banner will populate in InsightRx??? indicating when the custom dose feature should be utilized. The custom dose feature in InsightRx??? must be utilized as the DoseAssist feature will no longer populate recommendations in these scenarios. The custom dose feature can be used to evaluate the patient???s predicted exposure metrics based onthe various regimens entered. In patients with fluctuating renal function, a [id number] strategy can be utilized. Target AUC Concentrations: A target AUC of 400 to 600 is recommended for all patients except those with INSULATION POWER UNIT TENDER infections. For INSULATION POWER UNIT TENDER infections, a higher range of 500-600 may be considered if possible. Therapeutic Drug Monitoring: Initial vancomycin concentration levels should be drawn early in therapy, within the first 24-48 hours of therapy, generally after doses 2-4. It is no longer necessary to wait until steady state to collect levels. Earlier level collection allows for early target attainment and optimal efficacy. Levels should routinely be ordered to be collected with AM labs to decrease the number of lab sticks required. Levels may be interpreted from any time point between dose administrations (except during the infusion). All levels should be ordered as random levels. Vancomycin levels should be ordered within approximately 24 hours of due time. Levels should not beordered several days in advance. Doses should not be routinely held by nursing awaiting the return of a vancomycin level that is in process. If there is concern for supratherapeutic levels (i.e., in the setting of acute kidney injury) the vancomycin regimen should be discontinued pending evaluation of the level and doses re-ordered accordingly after the level results. Repeat Levels: Throughout the treatment course, repeat levels may be considered to be obtained within 24-48 hours: After a dosing regimen change During changes in renal function (SCr change by greater than or equal to 0.3 mg/dL OR urine output less than 0.5 mL/kg/hr over 6 hours) Hemodynamic instability If patients remain clinically stable with a documented AUC concentration in range, repeat levels only need to be rechecked every 5-7 days. Vancomycin Received at an Outside Hospital: Vancomycin doses that were received at an outside hospital or via home infusion can be manually entered into [facility]??? along with any levels that were collected prior to admission to [facility]. This will allow Insight[facility]??? to recognize that the patient is likely already at steady state and the dosing r ecommendations in the DoseAssist feature will reflect this. If the doses administered or time since the last dose administered is unknown or there is a concernfor supratherapeutic levels, a random stat level should be collected prior to dosing vancomycin to ensure level is not supratherapeutic. Laboratory Monitoring: Pharmacists may order serum creatinine, BUN, and vancomycin levels as needed per protocol. For new start vancomycin orders or for patients receiving vancomycin for less than 48 hours with anorder indication of pneumonia or sepsis that is secondary to suspected pneumonia, pharmacists may order a ???MRSA PCR Screen, Qualitative?? per protocol, no cosign required. The MRSA PCR nasal swab has a high negative predictive value for MRSA pneumonia. If the PCR resultsas ???not detected?? , the provider team should be contacted to discuss the need for vancomycin if no other clinical indications for vancomycin are present. Administration of doses should not be delayed pending a PCR result. A positive MRSA PCR nasal swab has a low positive predictive value and does not independently indicate the presence of MRSA pneumonia Vancomycin Dosing in Dialysis Patients requiring any form of dialysis will be dosed outside of the Insight[facility]??? software. All patients should receive weight-based loading doses as recommended in Table 1. Trough-based monitoring should be utilized for all patients requiring hemodialysis. Intermittent hemodialysis: Pre-hemodialysis vancomycin levels are preferred and should be drawn with scheduled morning labs when possible. Each dialysis session is expected to decrease the pre-dialysis level by 30-50%. Goal pre-hemodialysis level: 15-20 mcg/mL for all indications Maintaining pre-hemodialysis concentrations between 15 and 20 mcg/mL is likely to achieve an AUC of400 to 600 in the previous 24 hours. Random levels should be drawn within the first 72 hours of therapy and after the loading dose has been administered, prior to the next dialysis session. Generally, the weight-based maintenance doses from Table 2 in the protocol can be given after a hemodialysis session. In some instances, patients may have very low levels after receipt of a vancomycin loading dose. The calculation below can be utilized to help obtain a therapeutic level after a dialysis session. ? Concentration = Dose/VD (VD= 0.7 * weight) The supplemental dose is not intended to be a standard maintenance dose. Once a therapeutic regimen has been attained, levels should be monitored every 5-7 days in stable patients. Table 2 Hemodialysis Initial Maintenance Doses Weight Dose 20 - 59 kg 500 mg with each HD session 60 - 89 kg 750 mg with each HD session 90 kg or greater 1000 mg with each HD session Peritoneal Dialysis: For patients undergoing peritoneal dialysis and receiving intravenous vancomycin therapy, a level should be checked 24 hours after the initial dose. Subsequent doses should be administered based on the level. Frequencies of 48-72 hours may be expected. Patients receiving vancomycin intraperitoneally are excluded from this protocol. An infectious diseases clinical pharmacist should be contacted for assistance with dosing. Continuous Renal Replacement Therapy (CRRT): Patients receiving systemic vancomycin and continuous renal replacement therapy should be re-dosed with vancomycin when serum levels are or are expected to be less than 20 mcg/mL. The pharmacist should order a vancomycin random level approximately 12 hours after the initial dose. The pharmacist will re-dose accordingly based on level and monitor daily for CRRT interruptions or modifications. Monitoring Pharmacists will review patients daily (even if there is no pending level for that day). Daily reviews should include monitoring renal function, concomitant nephrotoxic agents (Table 3), microbiology, doses administered, pharmacy & relevant provider notes, and pending levels. In patients receiving dialysis or continuous renal replacement therapy, the pharmacist will review dialysis schedule & nephrology notes daily. Table 3 Potentially Nephrotoxic Agents: (list is not all-inclusive) Acyclovir [place] Aminoglycosides Loop Diuretics (usually higher doses) Amphotericin B and derivatives Methotrexate Angiotensin Inhibitors and Blockers NSAIDS (including MORRIS-1 and MORRIS-2 Inhibitors Calcineurin Inhibitors (cyclosporine, tacrolimus, sirolimus) Pentamidine Cidofovir Polymyxins (colistimethate and polymixin B) Contrast Media Piperacillin/tazobactam [place] Documentation Pharmacists should document in Epic their plan for dosing and monitoring vancomycin per pharmacy protocol. The summary note from [facility] should be copied into the pharmacy protocol i-Vent and posted inthe chart as a note for all patients being dosed with [facility]???. The Epic i-Vent template shouldbe utilized for all trough-based monitoring. At initiation of therapy With each level With each regimen change Patients being discharged on long-term intravenous vancomycin Pharmacists will ensure adequate handoff via verbal communication with external pharmacies/providers for patients who are being discharged on long-term IV vancomycin. The process for long-term vancomycin handoffs will be as follows: When a provider enters a discharge prescription for IV vancomycin, a RxDischarge In Basket message will fire. The pharmacist will review the discharge plans, including anticipated date of discharge and who will be taking over outpatient antibiotic therapy. Pharmacists will also review inpatient dosing regimen, recent labs, and anticipated plan for antibiotic therapy. Pharmacist will call long-term care pharmacy, home infusion service, etc. to provide handoff of thepatient???s vancomycin regimen, recent drug levels (provide AUC and corresponding estimated trough level listed in [facility]ight[facility]???), and any other pertinent information to safely and effectively hand off therapy. From the Rx Discharge message, pharmacists will use the New i-Vent button to document handoff as follows: i-Vent type: ???Transitions of Care?? i-Vent subtype: ???Discharge Handoff?? Pharmacists will use SmartText ???.dischargevancomycin?? to document the handoff that occurred. Pharmacists will copy the i-Vent to a note so that it is visible in the patient???s chart. Three attempts should be made to provide the discharge handoff Each attempt you make should be documented in an ivent using the SmartText ???.dischargevancounsuccessful?? and copied into the chart as a note After three unsuccessful attempts, update the ivent using the ivent template and benjamin the BPA in the In Basket complete Downtime Procedures Should an Epic downtime occur, the following procedures should be followed. If internet is still accessible during the downtime, the Insight[facility]??? web-based platform can still be utilized ([email or web address]). All general concepts or restrictions in this protocol should still be followed during downtime Loading doses should be administered to all patients as recommended in Table 1 Table 4 should be referenced for the recommended initial maintenance dose and frequency based on the patient weight and creatinine clearance if the web-based platform is not available. This should beused in downtimes only when the Insight[facility]??? web-based platform is not available. In the setting of Epic and internet downtime, trough-based monitoring should be utilized Trough Goals: 15-20 mcg/mL for severe infections such as bacteremia, endocarditis, pneumonia, necrotizing fasciitis, or meningitis 10-20 mcg/mL for cellulitis, urinary tract infections Trough levels should be collected 1 hour prior to the 4th or 5th dose or sooner based on clinical judgement. Patients with impaired or unstable renal function should be dosed by level. Once the downtime has resolved, patients should be converted to AUC monitoring and doses administered during the downtime can be manually added to [facility]???. Table 4 Creatinine Clearance (CrCl) Recommended Dose & Interval Greater than or equal to 100 mL/min & age less than 50 years 10-15 mg/kg IV Q8h Greater than or equal to 100 mL/min & age greater than 50 years 15-20 mg/kg IV Q12h 70-99 mL/min 15-20 mg/kg IV Q12h 50-69 mL/min 10-15 mg/kg IV Q12h 30-49 mL/min 15-20 mg/kg IV Q24h Less than 30 mL/min (not on hemodialysis) OR Unstable renal function 15-20 mg/kg IV once Obtain random level with AM labs or at 12- or 24-hour interval as applicable Re-dose at 10-15 mg/kg when level is estimated to be less than 20 mcg/mL * Sylvain Elliott, EricD - 10/23/2025 1:52 AM EST Images from the original note were not included. Pharmacy - Antibiotic Renal Adjustment Note Labs: Renal Creatinine (72h ago through now) Date/Time Serum Creatinine Range CrCl 10/22/251817 3.83 mg/dL 0.40 - 1.10 mg/dL Unknown ideal weight. Blood Urea Nitrogen (BUN) BUN 10/22/251817 45 CrCl calculated to be 20.2 mL/min Last Height/Weight Flowsheet Row Most Recent Value Height -- Weight 96.6 kg (212 lb 15.4 oz) filed at: 10/22/2025 2215 Patient height not recorded Sis Valdez is a 55 y.o. female that is receiving antimicrobial therapy for intra-abdominal abscess. Cefepime was changed from 1g q12 hours to 1g q24 hours per the pharmacist automatic renal adjustment protocol. Pharmacy will continue to follow the patient's renal function, culture results and clinical progress daily. Sylvain Elliott A Document for: [facility] Title: Pharmacist Automatic Antimicrobial Renal Dose Adjustment_[facility] Purpose: To define practices for pharmacist automatic antimicrobial renal dose adjustment Scope: Pharmacists, providers Policy Statement(s): Antibiotics included in the Pharmacist Automatic Antimicrobial Renal Dose Adjustment document will automatically be dose-adjusted for renal function and appropriate dosing. The pharmacist will automatically dose-adjust antibiotic frequencies, based on the patient???s estimated creatinine clearance If the indication specified at cook short order does not meet the dosing recommendations within the protocol or is not included in the protocol, providers will be contacted for order clarification. Indication-specific doses should not be adjusted per protocol as some indications have differing doses. Dosing intervals should be automatically adjusted based on creatinine clearance ranges. (For example: pharmacists may change daptomycin from q24h dosing to q48h dosing for a CrCl of 20 mL/min, but NOT from 6 mg/kg dose to 8 mg/kg dose.) If an antimicrobial requires an adjustment in dose at a specific creatinine clearance range, pharmacists may automatically adjust (For example: an order originally placed for cefepime 2 g can be automatically reduced to 1 g every 24 hours for a CrCl less than 10 mL/min) Indication-specific dosing recommendations are suggestions, and patient-specific factors may require alternative dosing recommendations that are not highlighted in the table below. Due to the vast number of possible antimicrobial indications for antimicrobials included, some indications may not be listed. Providers should be contacted if questions arise regarding the appropriateness of dosing regimens. Patients requiring extracorporeal membrane circulation (ECMO) are excluded from this policy, and required dose adjustments should be discussed with the provider. This document contains antimicrobial dosing regimens that are safe, effective, and evidence based. However, there are some instances where multiple dosing regimens are safe, effective, and evidence based. Please consider alternative dosing regimens when an infectious diseases provider is placing anorder for an antimicrobial. Please contact [facility] if you have any questions. Procedure: Upon receipt or review of an order that contains a dosing frequency that does not correspond with apatient???s creatinine clearance, the pharmacist will automatically adjust the antibiotic to the frequency that is defined by the dosing parameters in the protocol. Dosage adjustments will be made for antibiotics that do not have dose ranges. Antibiotics that havedose ranges will not be automatically adjusted and the provider will be contacted. Dosage adjustments for renal dysfunction will be processed and documented in [facility]. All orders entered in [facility] should be entered as ???per protocol: no cosign required?? . Antimicrobial renal dose adjustments should be documented as ivents in Epic under ???Antimicrobial stewardship?? with the subtype ???renal dose adjustment?? . Ivents must be copied into the chart as a progress note. Definitions: Ivent: an ivent is a means of documentation in [facility] viewable only to pharmacist. Appendix A: Adult Antimicrobial Dosing Guide [facility] Adult Antimicrobial Dosing Guide Antimicrobial Agent Creatinine Clearance (mL/min) Indication-specific dosing Greater than 50 30-50 10-30 Less than 10 or HD (dose after dialysis) CRRT Acyclovir (IV) Use AdjBW if weight greater than 120% of IBW HSV encephalitis/ VZV/ zoster ophthalmicus 10 mg/kg q8h 10 mg/kg q12h 10 mg/kg q24h 5 mg/kg q24h 10 mg/kg q12h HSV genital or mucocutaneous 5 mg/kg q8h 5 mg/kg q12h 5 mg/kg q24h 2.5 mg/kg q24h 5 mg/kg q12h Acyclovir (PO) VZV 800 mg 5 times daily 800 mg q8h 800 mg q12h HSV genital or mucocutaneous 400 mg q8h 200 mg q8h 200 mg q12h HSV prophylaxis 400 mg q12h 200 mg q12h Amphotericin B Lipid Complex (Abelcet??)(IV) Dose using IBW. Use actual weight if less than IBW 5 mg/kg q24h Liposomal Amphotericin B (Ambisome) (IV) Use AdjBW if weight greater than 120% of IBW Cryptococcal meningitis 3-4 mg/kg q24h Mucormycosis 5-10 mg/kg q24h Other systemic infection 3-5 mg/kg q24h Amoxicillin (PO) All others 500 mg q8h 500 mg q12h 500 mg q24h 500 mg q12h CAP 1g q8h 1g q12h 500 mg q12h 500 mg q12h Amoxicillin/ clavulanate (PO) 875/125 mg q12h 500/125 mg q12h 500/125 mg q24h 500/125 mg q24h Ampicillin (IV) Endocarditis/ INS[employer]ER/ bacteremia/ osteomyelitis/ PJI/ severe^ 2 g q4h 2 g q6h 2 g q8h 2 g q12h 2 g q8h All others 2 g q6h 2 g q8h 2 g q12h 2 g q24h 2 g q8h Ampicillin/ Sulbactam (IV) All others 3 g q6h 3 g q12h 3 g q24h 3 g q8h Cystitis 1.5 g q6h 1.5 g q8h 1.5 g q12h 1.5 g q24h 1.5 g q8h MDR+ Acinetobacter baumannii 3g q4h 3g q6h 3g q8h 3g q12h 3g q6h Azithromycin (IV/PO) 500 mg q24h Aztreonam (IV) Pseudomonas/ severe^ 2 g q8h 2 g q12h 2 g q24h 1 g q24h 2 g q8h All others 1 g q8h 1g q12h 1 g q24h 1 g q24h 1 g q8h Cefazolin (IV) All others 2 g q8h 2 g q12h CrCl less than 10 HD 2 g q8h 2 g q24h 1 g q24h UTI/ cellulitis/ uncomplicated SSTIs 1 g q8h 1 g q12h 1 g q24h 1 g q8h Cefepime (IV) All others/ SDD isolates* 2 g q8h 2 g q12h 2 g q24h 1 g q24h 2 g q8h UTI/ cellulitis/ uncomplicated SSTIs 1 g q8h 1 g q12h 1 g q24h 1g q24h 1 g q8h Cefiderocol (IV) CrCl greater than or equal to 120 CrCl 60-120 CrCl 30-60 CrCl 15-30 CrCl less than 15 or HD CRRT 2 g q6h 2 g q8h 1.5 g q8h 1 g q8h 750 mg q12h Dosing based on effluent rate; see package insert [facility] Adult Antimicrobial Dosing Guide Antimicrobial Agent Creatinine Clearance (mL/min) Indication-specific dosing Greater than 50 30-50 10-30 Less than 10 or HD (dose after dialysis) CRRT Cefpodoxime (PO) All others 200 mg q12h 200 mg q24h UTI 100 mg q12h 100 mg q24h SSTI or bacteremia 400 mg q12h 400 mg q24h 200 mg q24h Ceftaroline (IV) Bacteremia/ endocarditis/ severe^ 600 mg q8h 400 mg q8h 300 mg q8h 200 mg q8h 600 mg q8h All others 600 mg q12h 400 mg q12h 300 mg q12h 200 mg q12h 600 mg q12h Ceftazidime (IV) [employer]ER/ pneumonia/ severe^ 2 g q8h 2 g q12h 2 g q24h 1 g q24h 2 g q8h All others 1 g q8h 1 g q12h 1g q24h 1g q24h 1 g q8h Ceftazidime/ avibactam (IV) 2.5 g q8h 1.25 g q8h CrCl 15-29 CrCl 5-14 CrCl less than 5 HD 1.25 g q8h 0.94 g q12h 0.94 g q24h 0.94 g q48h 0.94 g q24h Ceftolozane/ tazobactam (IV) Pneumonia/ bacteremia/ severe^ 3 g q8h 1.5 g q8h CrCl 15-29 CrCl less than 15 HD 1.5 g q8h 750 mg q8h No data 2.25 g x1, then 450 mg q8h All others 1.5 g q8h 750 mg q8h CrCl 15-29 CrCl less than 15 HD 1.5 g q8h 375 mg q8h No data 750 mg x1, then 150 mg q8h Ceftriaxone (IV) [employer]ER or Enterococcal IE synergy 2 g q12h Osteomyelitis/ septic joint/ Strep. endocarditis/ Lyme 2 g q24h All others 1 g q24h Cefuroxime (PO) All others 500 mg q12h 500 mg q24h 500 mg q48h UTI 250 mg q12h 250 mg q24h 250 mg q48h Cephalexin (PO) All others 500 mg q6h 500 mg q8h 500 mg q12h 500 mg q12h UTI 500 mg q12h 500 mg q24h 500 mg q24h Ciprofloxacin (IV) Pneumonia/ severe^ 400 mg q8h 400 mg q12h 400 mg q24h 400 mg q8h All others 400 mg q12h 400 mg q24h 400 mg q12h Ciprofloxacin (PO) Pneumonia/ severe^ 750 mg q12h 750 mg q24h 750 mg q12h All others 500 mg q12h 500 mg q24h 500 mg q12h Clindamycin (IV) Necrotizing fasciitis/ PJP/ toxoplasmosis 900 mg q8h All others 600 mg q8h Clindamycin (PO) 300-450 mg q6-8h Dalbavancin (IV) Acute bacterial SSSI (one-time dose in ED only) 1,500 mg x1 1,125 mg x1 1,500 mg x1 Daptomycin (IV) Use AdjBW if weight greater than 120% of IBW VRE infection bacteremia/ endocarditis/ SDD* 10-12 mg/kg q24h 10-12 mg/kg q48h MRSA bacteremia/ endocarditis 8-10 mg/kg q24h 8-10 mg/kg q48h All others 6 mg/kg q24h 6 mg/kg q48h Doxycycline (IV/PO) 100 mg q12h [facility] Adult Antimicrobial Dosing Guide Antimicrobial Agent Creatinine Clearance (mL/min) Indication-specific dosing Greater than 50 30-50 10-30 Less than 10 or HD (dose after dialysis) CRRT Fluconazole (IV/PO) Invasive candidiasis 800 mg (12 mg/kg) x1, then 400 mg (6 mg/kg) q24h 800 mg (12 mg/kg) x1, then 200 mg (3mg/kg) q24h 800 mg (12 mg/kg) x1, then 400 mg (6 mg/kg) q24h Esophageal candidiasis 400 mg q24h 200 mg q24h Febrile neutropenia prophylaxis 400 mg q24h 200 mg q24h Oropharyngeal candidiasis 200 mg q24h 100 mg q24h Flucytosine (PO) Use IBW if weight greater than 120% of IBW CrCl greater than 40 CrCl 20-40 CrCl 10-20 CrCl less than 10 or HD 25 mg/kg [id number] 25 mg/kg q6h 25 mg/kg q12h 25 mg/kg q24h 25 mg/kg q48h Fosfomycin (PO) Complicated UTI 3 g q48h x3 doses 3 g q72h x2 doses Uncomplicated UTI 3 g x1 dose Ganciclovir (IV) Use AdjBW if weight greater than 120% of IBW CMV treatment CrCl greater than 70 CrCl 50-70 CrCl 25-50 CrCl 10-25 CrCl less than 10 or HD 5 mg/kg q12h 2.5 mg/kg q12h 2.5 mg/kg q24h 1.25 mg/kg q24h 1.25 mg/kg three times weekly CMV prophylaxis 5 mg/kg q24h 2.5 mg/kg q24h 1.25 mg/kg q24h 0.625 mg/kg q24h 0.625 mg/kg three times weekly Isavuconazonium sulfate (IV/PO) Invasive aspergillosis or mucormycosis 372 mg q8h x 6 doses, then 372 mg q24h (initiate 12-24h after last loading dose) Letermovir (IV) CMV prophylaxis, allogeneic HSCT 480 mg q24h No dose adjustment with CrCl > 10 mL/min. Accumulation of IV vehicle may occur in CrCl < 50 mL/min, closely monitor SCr Letermovir (PO) CMV prophylaxis, allogeneic HSCT 480 mg q24h CrCl less than 10 Not defined Levofloxacin (IV/PO) Pneumonia/ severe^ 750 mg q24h CrCl 20-49 CrCl less than 20 or HD 750 mg q24h 750 mg q48h 500 mg q48h All others 500 mg q24h CrCl 20-49 CrCl less than 20 or HD 500 mg q24h 500 mg q48h 250 mg q48h Linezolid (IV/PO) 600 mg q12h Maribavir (PO) CMV treatment, refractory 400 mg q12h Meropenem (IV) [employer]ER/VAP 2 g q8h 1 g q8h CrCl less than 30 HD 2 g q8h 1 g q12h 500 mg q24h All others 500 mg q6h 500 mg q8h CrCl less than 30 HD 500 mg q6h 500 mg q12h 500 mg q24h Metronidazole (IV/PO) Brain abscess 500 mg q6h Clostridioides difficile infection 500 mg q8h All others 500 mg q12h Micafungin (IV) Esophageal candidiasis/ intravascular infection 150 mg q24h All others, including prophylaxis 100 mg q24h Minocycline (PO) All others 100 mg q12h Stenotrophomonas maltophilia or MDR+ A. baumannii 200 mg q12h Nafcillin (IV) 2 g q4h [facility] Adult Antimicrobial Dosing Guide Antimicrobial Agent Creatinine Clearance (mL/min) Indication-specific dosing Greater than 50 30-50 10-30 Less than 10 or HD (dose after dialysis) CRRT Nitrofurantoin (PO) Uncomplicated cystitis CrCl greater than 30 CrCl less than 30 100 mg q12h Avoid use Oseltamivir (PO) Influenza treatment 75 mg q12h 75 mg q24h CrCl Less than 10 HD 75 mg x1 then 30 mg q24h 30 mg q24h 75 mg x1 then 30 mg post HD Influenza prophylaxis 75 mg q24h 30 mg q24h 30 mg q48h CrCl Less than 10 HD 30 mg q24h 30 mg q48h 30 mg x1, then 30 mg post HD Penicillin G (IV) Neurosyphilis/ meningitis/ necrotizing fasciitis/ endocarditis 4 mil units q4h 3 mil units q4h 2 mil units q4h 4 mil units x1, then 3 mil units q4h Peramivir (IV) Influenza treatment 600 mg once 200 mg once 100 mg once 100 mg once Piperacillin/ tazobactam (IV) CrCl > 40 CrCl 20-40 CrCl < 20 or HD 4.5 g q6h 4.5 g q6h 4.5 g q8h 4.5 g q12h Posaconazole (PO) 300 mg q12h x 2 doses then 300 mg q24h Posaconazole (IV) 300 mg q12h x 2 doses then 300 mg q24h Oral formulation preferred when CrCl < 50 mL/min Trimethoprim/ sulfamethoxazole (IV/PO) Dose calculated based on TMP; use AdjBW if weight greater than 120% of IBW UTI & pyelonephritis 1 DS tab q12h 1 DS tab q24h PJP or Nocardia 15-20 mg/kg/day divided in 3-4 doses 7.5-10mg/kg/day divided in 1-2 doses Toxoplasma encephalitis 10 mg/kg/day divided in 2 doses 5 mg/kg/day divided in 2 doses S. maltophilia or Systemic infection 8-12 mg/kg/day divided in 2-3 doses 4-6 mg/kg/day divided in 1-2 doses Valacyclovir (PO) Herpes zoster 1000 mg q8h 1000 mg q12h 1000 mg q24h 500 mg q24h Cold sores (x1 day) 2 g q12h 1 g q12h 500 mg q12h 500 mg x 1 Genital herpes treatment: Initial episode (x10 days) 1000 mg q12h 1000 mg q24h 500 mg q24h Genital herpes treatment: recurrent episodes (x3 days) 500 mg q12h 500 mg q24h 500 mg q24h Genital herpes prophylaxis: immunocompetent 500 - 1000 mg q24h 500 - 1000 mg q24h 500 mg q24h 500 mg q24h Genital herpes prophylaxis: HIV-infected/ immunocompromised 500 mg q12h 500 mg q12h 500 mg q24h 500 mg q24h Valganciclovir (PO) CMV Treatment CrCl greater than or equal to 60 CrCl 40-60 CrCl 25-40 CrCl less than 25 or HD 450 mg q12h 900 mg q12h 450 mg q12h 450 mg q24h 450 mg q48h CMV Prophylaxis 900 mg q24h 450 mg q24h 450 mg q48h 450 mg twice weekly 450 mg q24h [facility] Adult Antimicrobial Dosing Guide Antimicrobial Agent Creatinine Clearance (mL/min) Indication-specific dosing Greater than 50 30-50 10-30 Less than 10 or HD (dose after dialysis) CRRT Vancomycin (PO) Clostridioides difficile infection (nonfulminant) 125 mg q6h Clostridioides difficile infection (fulminant) 500 mg q6h Clostridioides difficile Prophylaxis 125 mg q24h Voriconazole (IV) Use AdjBW if weight greater than 120% of IBW 6 mg/kg q12h x 1 day, then 4 mg/kg q12h Oral formulation preferred when CrCl < 50 mL/ min Voriconazole (PO) Use AdjBW if weight greater than 120% of IBW 6 mg/kg q12h x 1 day, then 4 mg/kg q12h *SDD: Susceptible dose dependent (isolates that are susceptible dose dependent will be reported as such in Epic) +MDR: Multi-drug resistant, which includes carbapenem-resistant Acinetobacter baumannii (CRAB) ^Severe: Infections categorized as severe may include but are not limited to pneumonia, endocarditis, bacteremia, necrotizing fasciitis, meningitis, osteomyelitis. Categorization of infection type should be discussed with provider. documented in this encounter H&P Notes * Sisi Freitas MD - 10/23/2025 12:01 AM EST MEDICINE H&P Admit Date: 10/22/2025 6:07 PM Patient's Primary Care Provider: Linda Murphy DO CODE:: No orders of the defined types were placed in this encounter. Active Problems: Type 2 diabetes mellitus (HCC) (POA: Yes) Schizophrenia (HCC) (POA: Yes) Postoperative hypothyroidism (POA: Yes) Obstructive sleep apnea syndrome (POA: Yes) Gastroesophageal reflux disease (POA: Yes) Hyperlipidemia (POA: Yes) Hypertension (POA: Yes) Chronic obstructive lung disease (HCC) (POA: Yes) Bipolar disorder (HCC) (POA: Yes) Resolved Problems: Assessment & Plan 55 year old female with past medical history of COPD (baseline 2 L nocturnal O2), hypertension, hyperlipidemia, diabetes, DANIEL, schizophrenia, bipolar disorder, history of papillary thyroid carcinoma status post thyroidectomy, history of left lower lung cancer, abnormal uterine bleeding, and recent h ospitalization in ICU for urosepsis who presented to [facility] 10/22 for altered mental status and found to have sepsis likely secondary to tubo-ovarian abscess, as well as possible urosepsis. Assessment & Plan Sepsis (HCC) Tubo-ovarian abscess Urinary tract infection History of urosepsis with previous Vanco/meropenem coverage, status post outpatient Augmentin and metronidazole coverage. 10 days of dysuria and suprapubic discomfort. UA indicative of UTI. Sepsis given fever (at OSH), heart rate >90, WBC 27K with suspected urinary/abscess source. CT abdomen pelvis 10/22 showing fluid collection containing gas producing 9.3 X4.4X 5.5 cm) in the cul-de-sac along the dorsal surface of the uterus. As well as enlargement/inflammatory changes of the adnexa left> right (new gas medial to the left adnexa). Transvaginal ultrasound 10/22 visualizing same abscess collection per above, as well as a frontal myometrial uterine fibroid measuring 4.8 cm in diameter. Status post 3.5 L IVF at OSH. Previously required levo, now off of pressors. Warmer exam, good capillary refill. -Antibiotics: start cefepime and clindomycin given gas present on transvaginal ultrasound, continuewith vanco -Follow-up ID recs -Follow-up IR recs for source control -Follow-up DRY JANITOR recs -Follow-up urine culture 10/22 -Follow-up blood cultures 10/22 -Telemetry Npo except meds -If blood pressure drops, above threshold for pressors in ICU given already received full sepsis bolus -Holding home aspirin, unclear indication for this medication Anemia Per chart review, previous hemoglobins 12, with steady decline. H/H on admission 7.0/21.6. Will consent for blood transfusion. -Follow-up cbc - Follow-up iron, ferritin, b12 - Hemoglobin goal greater than 7 - Holding chemical DVT prophylaxis, continue with SCDs MADELINE (acute kidney injury) Baseline creatinine 1.01-1.29. Presented with creatinine 4.59. CT abdomen pelvis showing moderate hydronephrosis likely related to inflammatory changes. Status post Petty catheter placement urine production. Unclear etiology of MADELINE at this time, will rehydrate. Status post 3.5 L IV fluid. -Start D5 LR at 100 cc/hr -If no improvement in renal function, consider nephrology consult High anion gap metabolic acidosis Lactic acid within normal limits. Unclear etiology. -Follow-up repeat BMP Hypocalcemia Hypokalemia Calcium 7.8, potassium 3.2 on arrival. -Potassium chloride 40 mEq every 4 hours x 2 doses Type 2 diabetes mellitus (HCC) -Holding home glipizide, metformin, semaglutide - Low-dose ISS Schizophrenia (HCC) Bipolar disorder (HCC) -Continue home Abilify, bupropion, Haldol, clonazepam -If mental status does not improve consider holding these agents Postoperative hypothyroidism -Continue home levothyroxine Obstructive sleep apnea syndrome Chronic obstructive lung disease (HCC) Home nocturnal 2 L nasal cannula. -Continue with home oxygen requirements Gastroesophageal reflux disease -Continue home Pepcid Hyperlipidemia Hypertension -Holding home antihypertensives in the setting of sepsis -Continue home statin VTE Time Out Chemical Prophylaxis: Holding given anemia Mechanical Prophylaxis: SCDs Restraints: Petty: Evaluation for removal of Petty was discussed today on rounds. If no longer indicated, then it would be removed. Indication for keeping Petty: Urinary retention Diet: N.p.o. for possible drainage of abscess Dispo: Stepdown unit Subjective Chief Complaint Altered Mental Status History of Present Illness Patient is a 55 year old female with past medical history of COPD (baseline 2 L nocturnal O2), hypertension, hyperlipidemia, diabetes, DANIEL, schizophrenia, bipolar disorder, history of papillary thyroid carcinoma status post thyroidectomy, history of left lower lung cancer, abnormal uterine bleeding, and recent hospitalization in ICU for urosepsis who presented to [facility] 10/22 for confusion. Of note, recent hospitalization (10/01 - 10/08/2025) with ICU admission due to septic shock suspected UTI origin. At that time also had pelvic abscess status post IR drainage, no growth from that aspirate culture. Initially treated with vancomycin and meropenem, discharged home with 7-day course ofAugmentin and metronidazole. The patient notes complete resolution of UTI symptoms after leaving the hospital 10/08. She notes about 5 days after this hospitalization (10 days ago), she had onset of dysuria and suprapubic discomfort which has persisted. On morning of admission, patient's noted her to have weird talk .Given this sudden change in mental status, went back to [place] for further evaluation. Unable to contact at this time for further collateral. According to patient, per baseline she lives at home with and children and is independent of ADLs. Notes chronic lower back pain. Denies hematuria, vaginal pruritus, fever/chills. Denies chest pain/discomfort, dyspnea, metallic taste, tremor, sleep disturbances. Denies NSAID use. At OSH, initially found to be tachycardic, febrile, leukocytosis 27K, hypotensive and subsequently started on levo. Also found to have acute renal failure with creatinine of 3.83 (baseline 1). CT at OSH showed expansion of left adnexal collection, as well as stable moderate hydronephrosis. Started on Vanco, given 3.5 L IVF and transferred to for further care. ED course: Also initiated on Zosyn. Discontinued levo given stable MAPs. IR consulted for possible drain placement and potential nephrostomy tube due to moderate hydronephrosis in the setting of acute renal failure. Shake Loader consulted for transvaginal US to better characterize TOA. Review of Systems Review of Systems Constitutional: Positive for fatigue. Negative for chills and fever. HENT: Negative for sore throat. Respiratory: Negative for cough, chest tightness, shortness of breath and wheezing. Cardiovascular: Negative for chest pain, palpitations and leg swelling. Gastrointestinal: Positive for abdominal pain. Negative for abdominal distention. Genitourinary: Positive for dysuria. Negative for flank pain, frequency, hematuria and urgency. Musculoskeletal: Positive for back pain. Neurological: Positive for weakness. Negative for dizziness, light-headedness and headaches. Objective Past History No past medical history on file. No past surgical history on file. No family history on file. Social History Tobacco Use Smoking status: Not on file Smokeless tobacco: Not on file Substance Use Topics Alcohol use: Not on file Allergies Allergies[1] Home Medications (Not in a hospital admission) Physical Exam Patient Vitals for the past 8 hrs: BP Temp Temp src Pulse Resp SpO2 Weight 10/22/25 2215 (!) 100/47 98.8 ??F (37.1 ??C) Tympanic 99 18 94 % 96.6 kg (212 lb 15.4 oz) 10/22/252105 (!) 115/57 99.1 ??F (37.3 ??C) -- (!) 103 18 96 % 96.6 kg (212 lb 15.4 oz) 10/22/252000 104/59 -- -- (!) 110 -- 95 % -- 10/22/251954 (!) 108/57 -- -- (!) 110 -- 95 % -- 10/22/251951 (!) 110/55 -- -- (!) 110 -- 95 % -- 10/22/251924 130/66 -- -- (!) 114 -- 96 % -- 10/22/251918 105/59 -- -- (!) 112 -- 96 % -- 10/22/251915 (!) 120/58 -- -- (!) 114 -- 97 % -- 10/22/251902 128/61 -- -- -- -- -- -- 12/12/25 1856 123/64 -- -- -- -- -- -- 10/22/251850 112/62 -- -- -- -- -- -- 10/22/251841 118/60 -- -- -- -- -- -- 10/22/251840 125/59 -- -- -- -- -- -- 10/22/251837 131/61 -- -- (!) 116 18 97 % -- 10/22/251817 (!) 144/67 -- -- -- -- -- -- 10/22/251814 -- -- -- -- -- 96 % -- 10/22/251814 117/87 -- -- -- -- (!) 90 % -- 10/22/251810 -- 98.7 ??F (37.1 ??C) Tympanic (!) 112 18 -- -- 10/22/251810 -- -- -- -- -- -- 96.6 kg (212 lb 15.4 oz) No intake or output data in the 24 hours ending 10/23/25 0106 Physical Exam Constitutional: Comments: Lying comfortably flat in bed. Slow speech noted. HENT: Mouth/Throat: Mouth: Mucous membranes are moist. Eyes: Extraocular Movements: Extraocular movements intact. Pupils: Pupils are equal, round, and reactive to light. Cardiovascular: Rate and Rhythm: Normal rate and regular rhythm. Pulses: Normal pulses. Heart sounds: No murmur heard. Pulmonary: Effort: Pulmonary effort is normal. Breath sounds: No wheezing, rhonchi or rales. Comments: On 2 L nasal cannula. Abdominal: Comments: Abdomen distended, soft, diffusely tender to palpation. No involuntary guarding. Musculoskeletal: Right lower leg: No edema. Left lower leg: No edema. Skin: General: Skin is warm and dry. Capillary Refill: Capillary refill takes less than 2 seconds. Neurological: Mental Status: She is alert. Comments: Alert and oriented to full name, [facility], 2024. Able to spell world backwards. No focal deficit appreciated. No asterixis noted. ECG: sinus tachycardia Relevant data reviewed Labs Notable labs are: White Blood Cell Count Date Value Ref Range Status 10/22/2025 26.9 (H) 4.0 - 11.0 Thou/uL Final Hemoglobin Date Value Ref Range Status 10/22/2025 7.0 (L) 11.7 - 15.7 g/dL Final Hematocrit Date Value Ref Range Status 10/22/2025 21.6 (L) 35.0 - 47.0 % Final Platelet Count Date Value Ref Range Status 10/22/2025 389 150 - 450 Thou/uL Final Lab Results Component Value Date NA 135 (L) 10/22/2025 K 3.2 (L) 10/22/2025 CL 96 (L) 10/22/2025 CO2 20 (L) 10/22/2025 BUN 45 (H) 10/22/2025 CREAT 3.83 (H) 10/22/2025 GLUC 85 10/22/2025 GLUC 96 10/22/2025 Lab Results Component Value Date CALCIUM 7.8 (L) 10/22/2025 EXAMINATION: CT ABDOMEN AND PELVIS WITHOUT CONTRAST 10/22/2025 CLINICAL INFORMATION: recent pelvic abscess, low back pain, no IV contrast due to acute kidney injury COMPARISON: 10/08/2025 CT and 10/03/2025 MRI FINDINGS: LUNG BASES: Again seen is a small loculated effusion in the left lung base There is a new density in the dependent portion of the right lower lobe that likely represents atelectasis and/or small effusion. Pneumonia is not completely excluded. Small pericardial effusion is similar to the prior. LIVER, GALLBLADDER, AND BILIARY TREE: The liver is normal in size, shape, and attenuation. No focal hepatic lesion or biliary ductal dilatation is present. The gallbladder is surgically absent with clips in the gallbladder fossa. PANCREAS: Unremarkable. SPLEEN: Unremarkable. ADRENAL GLANDS: Unremarkable. KIDNEYS AND URETERS: Moderate hydronephrosis probably related to inflammatory changes in the pelvis is stable. BLADDER: Unremarkable. GASTROINTESTINAL TRACT: The small and large bowel are unremarkable. The appendix is unremarkable. ABDOMINAL WALL: No significant hernia is appreciated. LYMPH NODES: Shotty periaortic lymph nodes are present in the abdomen and iliac fossa VASCULAR: Unremarkable. PELVIC VISCERA: Again seen is a fluid collection, now containing gas, in the cul-de-sac, along the dorsal surface of the uterus. The margins are somewhat ill-defined due to lack of IV contrast. The collection measures approximately 9.3 x 4.4 x 5.5 cm, previously 6.3 x 2.2 x 3.7 cm (CC by AP by transverse). The pigtail catheter that had migrated out of the collection has been completely removed. Again seen is enlargement and inflammatory changes of the adnexa, left greater than right. There is gas medial to the left adnexa, new since the prior. The margins of the collection are ill-defined but measure approximately 10.9 x 4.9 x 6.6 cm, previously 6.9 x 4.2 x 5.7 cm (transverse by CC by AP). IMPRESSION: Increasing size of presumed abscess in the cul-de-sac and gas. Increasing size of left adnexal collection including a multicystic ovary, fluid, and gas that was previously described as a probable tubo-ovarian abscess. Prior MRI stated that underlying neoplasm is not ruled out. Right adnexal changes concerning for tubo-ovarian abscess are stable. Small loculated left pleural effusion is stable. There is increased density in the dependent portion of the right lung base that probably represents atelectasis and pleural fluid, increased since the prior. Underlying pneumonia is not ruled out. Stable small pericardial effusion. Stable moderate hydronephrosis, likely secondary to inflammatory changes in the pelvis. EXAMINATION: CT HEAD WITHOUT CONTRAST 10/22/2025 CLINICAL INFORMATION: Altered mental status. COMPARISON: 07/06/2024. FINDINGS: There is no evidence of intracranial hemorrhage or extra-axial fluid collection. There is no mass effect, or edema. No CT evidence of acute territorial infarct. Ventricles, sulci, and cisterns are normal in size and configuration for patient age. No hydrocephalus. No midline shift. Negative hyperdense MCA sign. Negative insular ribbon sign. No significant white matter attenuation abnormality. Normal pituitary. Globes and orbital contents image normally. No extracranial soft tissue abnormalities. The paranasal sinuses, mastoid air cells, and tympanic cavities are normally aerated. No suspicious bony abnormalities. There are no acute fractures evident. EXAMINATION: ULTRASOUND OF THE PELVIS CLINICAL INFORMATION: Collection in left adnexa with multisystic ovary, fluid, gas.. COMPARISON: CT abdomen and pelvis 10/22/2025, 2:20 PM.. TECHNIQUE: Transabdominal and transvaginal pelvic ultrasound. Doppler evaluation with spectral analysis was performed. A transvaginal study was performed in addition to the transabdominal study which did not yield an adequate examination of the uterus and ovaries due to superimposed distended gas-filled loops of bowel. FINDINGS: The uterus is normal in size and appearance, measuring 12 x 4.9 x 5.8 cm longitudinally, anteroposteriorly and transversely. The endometrial stripe thickness is normal, measuring 0.8 cm in thickness. Fundal fibroid measuring 4.6 x 4.8 x 4 cm with The ovaries are not visualized. There is a ill-defined fluid collections with surrounding debris and septations as well as areas of increased vascularity within the right and left adnexal regions. IMPRESSION: Significantly limited examination. The ovaries are not visualized secondary to overlying bowel gas and difficulty in positioning/compliance during the exam. Partial visualization of complex free intraperitoneal fluid. Ill-defined fluid collections with surrounding debris and septations as well as areas of increased vascularity within the right and left adnexal regions. Findings may represent abscesses/phlegmon. Frontal myometrial uterine fibroid measuring 4.8 cm in diameter. Interpreted by: Santiago Elena MD Weed Control Inspector I personally reviewed the images and the resident's preliminary report and AGREE with the report as it is now presented ([id number]). Sisi Freitas MD 10/23/2025 1:06 AM [1] No Known Allergies Cosigned by Annika Milian MD at 10/23/2025 3:38 AM EST Associated attestation - Annika Milian MD - 10/23/2025 3:38 AM EST Attending Physician Attestation Level of Participation I have personally interviewed and examined the patient and reviewed Dr. Freitas's note. I agree with the history, exam, assessment and plan as detailed in the resident's note with the following additions/exceptions/observations: 55-year-old female with bipolar disorder, prior hospitalization several weeks ago for left tubo-ovarian abscess presents emergency room for complaint of abdominal discomfort. CT at outside hospital states again seen is fluid collection, now containing gas, in the cul-de-sac, along the dorsal surface of the uterus. Collection measures 9.3 x 4.4 x 5.5 cm . As per patient, she was hospitalized and recently recently discharged on 10/08 where she had abscess drained with interventional radiology. She required ICU level of care. Symptoms have since returned. She is transferred to [facility] for higher level of care. Assessment and plan by problem: Sepsis due to left tubo-ovarian abscess WBC 26.9, tachycardic Proceed with IV vancomycin, cefepime, clindamycin Gynecology consulted and following. Infectious disease consult also placed. Will keep n.p.o. for now MADELINE Creatinine today 3.83. In Care Everywhere, creatinine earlier this month was 1.29. Petty catheter in place and there is adequate urine in the bag. I suspect this is in the setting of sepsis/intravascular depletion. Proceed with aggressive IV fluid hydration Anemia Hemoglobin 7.0, a month ago it was 13.0. Denies dark stool. Iron levels ordered. Repeat hemoglobin, transfuse if less than 7 Annika Milian MD [facility]- Internal Medicine documented in this encounter Procedure Notes * Lata Wharton RN - 11/03/2025 1:48 PM ESTAssociated Order(s): PICC/Midline Insertion PICC/Midline Insertion Date/Time: 11/03/2025 1:48 PM Performed by: Lata Wharton RN Authorized by: Eddie Alicia MD Consent: Verbal consent obtained. Written consent obtained Risks and benefits: risks, benefits and alternatives were discussed Consent given by: patient Patient understanding: patient states understanding of the procedure being performed Patient consent: the patient's understanding of the procedure matches consent given Procedure consent: procedure consent matches procedure scheduled Relevant documents: relevant documents present and verified Test results: test results available and properly labeled Site marked: the operative site was marked Imaging studies: imaging studies available Required items: required blood products, implants, devices, and special equipment available Patient identity confirmed: verbally with patient and arm band Time out: Immediately prior to procedure a time out was called to verify the correct patient, procedure, equipment, marketing support specialist and site/side marked as required. Preparation: Patient was prepped and draped in the usual sterile fashion. Local anesthesia used: yes Anesthesia: local infiltration Anesthesia: Local anesthesia used: yes Local Anesthetic: lidocaine 1% without epinephrine Anesthetic total: 4 mL Sedation: Patient sedated: no Patient tolerance: patient tolerated the procedure well with no immediate complications PICC Line Insertion Procedure Note PROCEDURE: Insertion of a 4 [place] Double Lumen PICC. LOT #: [id number] CLINICAL INDICATION: Half-Way IV therapy CONSENT: Chart review was performed prior to approaching patient, including: allergies; imaging studies; pertinent lab results; prior history of central line placements; and to assure consent was obtained and that a signed consent form documenting the discussion was placed in the medical record. TECHNIQUE: Procedure began with sonographic visualization of the main vessels in the patients LEFT upper arm. Patency of the BASILIC vein was confirmed. Measurements were taken to determine catheter length and baseline arm circumference. The arm was sterilely prepped and draped. All elements of maximal sterile barrier precautions utilized including use of cap, mask, sterile gown, sterile gloves, sterile full body drape and hand hygiene. This was all applied after skin preparation with 2% chlorahexidine for cutaneous antisepsis and sterile ultrasound preparation with sterile probe cover and gel. Following administration of 1% lidocaine, under direct ultrasound guidance, the BASILIC vein was punctured using an introducer needle. A 0.018 inch Flexura Nitinol Guidewire was advanced. A peel awaysheath was inserted over the guidewire. Guidewire was removed and inspected to ensure wire was intact and undamaged. A saline primed PICC was advanced to pre-cut measured length. Post sheath removal,catheter visualized in vessel using ultrasound in longitudinal/transverse view Catheter visualized in proper position. No evidence of arterial puncture. Blood return in all lumens: yes. Catheter was flushed with 20 cc normal saline. Patient did tolerate procedure well with 1% lidocaine sc. Number of attempts: 2 MEASUREMENTS: Catheter trimmed to 43 cm, with 1 cm left outside the patient Mid upper arm circumference is 32 cm. IMPRESSION: Successful placement Bard power PICC via the LEFT arm using ultrasound guidance and modified seldinger technique 2. CXR is not needed. PICC tip confirmed to be in the SVC using ECG technology. PICC is ready for immediate use 3. Education provided on need for the PICC; signs and symptoms of potential complications that needto be reported; proper care and maintenance documented in this encounter Consult Notes * Alicia Torrez RN - 11/05/2025 10:06 AM EST [facility] Ostomy Care Consult Visit Date: 11/05/2025 Patient Name: Sis Valdez Date of : 1970 Reason for Consult: follow up Ostomy History: 55 year old female s/p ex-lap, abdominal washout and loop colostomy creation on 10/25/25. Patient seen today for education and pouch change prior to discharge home with VNA services later this morning. Pertinent Labs: Albumin Date Value Ref Range Status 10/22/2025 3.5 3.5 - 5.0 g/dL Final No results found for: TRANSFERRIN No results found for: PREALBUMIN Ostomy Assessment: Colostomy (Adult) 10/25/25 loop colostomy (Active) Stoma Appearance moist;pink;protruding above skin level;flush with skin 11/05/25 1000 Peristomal Skin intact;moist 11/05/25 1000 Appliance 1-piece;no leakage;changed 11/05/25 1000 Accessories/Skin Care barrier substance over peristomal skin;cleansed with water;skin barrier paste;skin barrier strip;wafer barrier over peristomal skin 11/05/25 1000 Stoma Function flatus;stool 11/05/25 1000 Tolerance no signs/symptoms of discomfort;assisted with appliance change;assisted with stoma care 11/05/25 1000 Number of days: 11 Ostomy Team Summary Assessment: Pouch changed yesterday d/t leaking, however patient states leakingwas d/t pouch being too full of stool. States that other than that, the pouch seemed to work very well for her. Prior to changing pouch today, practiced emptying with patient who was able to return demonstrate correctly. Able to open and close velcro end comfortably. Patient performed almost all steps of pouch change independently with minimal cueing from RN, however RN did assist with some stepsthat required better visualization than patient had semi-reclined in bed such as centering pouch over wafer. Patient has good knowledge of pouch change steps. Reviewed role of homecare. Stoma has shrunk slightly in the past few days and has become slightly oblong, new template cut from today's wafer with opening offset as much as possible from midline incision. Did review with patient that although being provided with template to go home with, measuring is still important for accurate fit for the first 4-6 weeks until size stabilizes. Proximal end of stoma remains protruding with distal end flush with skin. Concavity to peristomal skin remains from 3- 9:00 but unchanged since last assessment by this RN. Peristomal skin remains slightly moist, but moisture lessened. At this pouch change, small amt of stoma paste was applied from 3-9:00 to create seal where moisture was noted. Showed patient how to apply and use stoma paste. Os points slightly downward and extra bulk of venancio ring may impede stool flowing into pouch appropriately. However, if patient is experiencing leaking, may try adding venancio ring to distal end of stoma. D/t proximity to midline incision, medial edgeof wafer not able to make full contact with skin despite offsetting, educated patient on watching for any signs of leaking to that area especially. Supplies provided for discharge: -1+ boxes of dotHIV #[id number] -1 box Venancio rings -1.5 boxes barrier strips -Scissors -Barrier spray -1 box adhesive remover wipes -Stoma paste -Powder -[place] tape Ostomy Team Plan: follow up in 1-2 days if not discharged Recommendations: - Empty pouch when 1/3-1/2 full. Apply new pouching system every 3-5 days. - Use adhesive remover to loosen tape border. - Clean skin with warm water only and washcloth. (Do not use scented soaps, alcohol, or baby wipes around the stoma) - Measure stoma and cut wafer to exact size - Prep surrounding skin with Coloplast barrier spray (#[id number]), air dry. If peristomal skin red apply stoma powder first and dust off excess, then apply barrier spray. Let dry. - Apply small amount of stoma paste to inner edge of wafer opening from 3-9:00 - Apply new pouch, [employer] Body #[id number] one piece convex cut to fit. - Apply barrier strips to edges of wafer - Hold in place for 5-10 Minutes using warmth of hands to secure wafer Please contact HH Ostomy via TigerText for any questions or concerns Sign: Alicia Torrez RN BSN, CWON 11/05/2025 10:07 AM * Alicia Torrez RN - 11/03/2025 12:39 PM EST [facility] Ostomy Care Consult Visit Date: 11/03/2025 Patient Name: Sis Valdez Date of : 1970 Reason for Consult: follow up Ostomy History: 55 year old female s/p ex-lap, abdominal washout and loop colostomy creation on 10/25/25. Patient seen today for ongoing education and pouch change d/t leaking. Patient expected to discharge this 11/05 to home with VNA services. Pertinent Labs: Albumin Date Value Ref Range Status 10/22/2025 3.5 3.5 - 5.0 g/dL Final No results found for: TRANSFERRIN No results found for: PREALBUMIN Ostomy Assessment: Colostomy (Adult) 10/25/25 loop colostomy (Active) Stoma Appearance moist;pink 11/03/25 1200 Peristomal Skin intact;moist 11/03/25 1200 Appliance 1-piece;leakage;changed 11/03/25 1200 Accessories/Skin Care barrier substance over peristomal skin;cleansed with water;skin barrier strip;wafer barrier over peristomal skin 11/03/25 1200 Stoma Function flatus;stool 11/03/25 1200 Tolerance no signs/symptoms of discomfort;assisted with appliance change;assisted with stoma care 11/03/25 1200 Stool Output (mL) 75 11/03/25 1200 Number of days: 9 Ostomy Team Summary Assessment: Previous pouch placed yesterday leaking in several areas d/t stool beginning to pancake under wafer. Noted that stoma is slightly smaller and concavity at distal end of peristomal skin is slightly more pronounced. Proximal half of stoma is protruding and distal half of stoma is flush with skin which is the same area of concavity. Changed pouch to [employer] Body deep hard convex wafer, tried without use of Venancio. However, if pouch starts to consistently leak, may need addition of Venancio ring to distal end. Distal peristomal skin moist and slightly reddened from leaking stool but primarily intact. Patient performed majority of pouch change by herself with minimal cueing or assistance by RN. Did help patient place pouch over stoma d/t limited visibility and proximity to midline incision. Showedpatient application of barrier strips around edges of wafer. Patient reports feeling more confidentwith pouch changes now and grateful for education but some anxiety about needing more practice once home. Has been practicing opening/closing/emptying pouch recently. Reassured that patient will haveassistance by homecare for continued education and transition home. Ostomy Team Plan: follow up in 1-2 days. If Esteem body pouch works well, will need to provide morepouches prior to discharge. Will also need more adhesive remover. Has full boxes of venancio rings andbarrier strips. Recommendations: - Empty pouch when 1/3-1/2 full. Apply new pouching system every 3-5 days. - Use adhesive remover to loosen tape border. - Clean skin with warm water only and washcloth. (Do not use scented soaps, alcohol, or baby wipes around the stoma) - Measure stoma and cut wafer to exact size - Prep surrounding skin with Coloplast barrier spray (#[id number]), air dry. If peristomal skin red apply stoma powder first and dust off excess, then apply barrier spray. Let dry. - Apply new pouch, [employer] Body #[id number] one piece convex cut to fit. May place venancio ring at distal end of stoma prior to pouch placement if pouch leaks in that area. - Apply barrier strips to edges of wafer - Hold in place for 5-10 Minutes using warmth of hands to secure wafer Please contact Ostomy via TigerText for any questions or concerns Sign: Alicia Torrez RN BSN, CWON 11/03/2025 12:39 PM * Alicia Torrez RN - 11/02/2025 10:44 AM EST [facility] Ostomy Care Consult Visit Date: 11/02/2025 Patient Name: Sis Valdez Date of : 1970 Reason for Consult: follow up Ostomy History: 55 year old female s/p ex-lap, abdominal washout and loop colostomy creation on 10/25/25. Patient seen today for ongoing education. Pertinent Labs: Albumin Date Value Ref Range Status 10/22/2025 3.5 3.5 - 5.0 g/dL Final No results found for: TRANSFERRIN No results found for: PREALBUMIN Ostomy Assessment: Colostomy (Adult) 10/25/25 loop colostomy (Active) Stoma Appearance moist;pink;protruding above skin level 11/02/25 1000 Peristomal Skin intact;moist 11/02/25 1000 Appliance 1-piece;leakage;changed 11/02/25 1000 Accessories/Skin Care barrier substance over peristomal skin;cleansed with water;skin barrier ring;wafer barrier over peristomal skin 11/02/25 1000 Stoma Function flatus;stool 11/02/25 1000 Tolerance no signs/symptoms of discomfort;assisted with appliance change;assisted with stoma care 11/02/25 1000 Stool Output (mL) 75 11/02/25 1000 Number of days: 8 Ostomy Team Summary Assessment: Pouch noted to be leaking at 9:00 upon arrival to bedside nearest to incision. Pouch removed and therefore this RN now able to accurately assess shape of stoma and peristomal landscape (unable to assess yesterday d/t pouch being in place). Stoma measured and noted diane smaller than when last template was cut, and shallow concavity now noted to distal end of stoma from 3-9:00. Patient is now also sitting up and ambulating more, therefore angle of pouch needing diane adjusted to be more vertical to accommodate patient being more frequently upright. New template cut to address changes needing to be made, offset from incision, and venancio ring placed to area of concavity. Patient participated in steps of pouch change as much as she was able to - difficulty beingable to visualize distal end of stoma d/t sitting in bed. Practiced removing, cleansing, cutting wafer, applying adhesive, and holding in place with hand. Also able to open and close pouch well. Reassured patient that pouch changes should be easier once she has better visualization and incision continues to heal. Also reassured patient that ostomy team will continue to teach and practice and thatpatient will have homecare services to continue teaching at home. Patient very grateful for teaching and expresses that she is very eager to continue learning and practicing. Ostomy Team Plan: follow up in 1-2 days Recommendations: - Empty pouch when 1/3-1/2 full. Apply new pouching system every 3-5 days. - Use adhesive remover to loosen tape border. - Clean skin with warm water only and washcloth. (Do not use scented soaps, alcohol, or baby wipes around the stoma) - Measure stoma and cut wafer to exact size, offset opening from abdominal incision (template left in room) - Prep surrounding skin with Coloplast barrier spray (#[id number]), air dry. If peristomal skin red apply stoma powder first and dust off excess, then apply barrier spray. Let dry. - Apply venancio ring from 3-9:00 around stoma - Apply new pouch, [employer] (#[id number]) flat, cut to fit one piece (please do not use 2 piece) - Hold in place for 5-10 Minutes using warmth of hands to secure wafer Sign: Alicia Torrez RN BSN, CWON 11/02/2025 10:44 AM * Alicia Torrez RN - 11/01/2025 4:04 PM EST [facility] Ostomy Care Consult Visit Date: 11/01/2025 Patient Name: Sis Valdez Date of : 1970 Reason for Consult: follow up Ostomy History: 55 year old female s/p ex-lap, abdominal washout and loop colostomy creation on 10/25/25. Patient seen today for education and assess pouch integrity. Pertinent Labs: Albumin Date Value Ref Range Status 10/22/2025 3.5 3.5 - 5.0 g/dL Final No results found for: TRANSFERRIN No results found for: PREALBUMIN Ostomy Assessment: Colostomy (Adult) 10/25/25 loop colostomy (Active) Stoma Appearance moist;pink;protruding above skin level 11/01/25 1600 Peristomal Skin unable to assess, covered by appliance 11/01/25 1600 Appliance 1-piece;intact;no leakage 11/01/25 1600 Stoma Function stool;flatus 11/01/25 1600 Number of days: 7 Ostomy Team Summary Assessment: Patient alert and ready/eager to participate in ostomy education. Watched education video with no questions afterward, and verbalized back several important education points such as cutting wafer to exact size and when to empty pouch. Stated that she did also look through folder at the information provided in there as well. Reviewed that next steps will be for her to practice cutting, opening/closing, etc. Per floor staff and surgical team, pouch has been leaking. Pouch placed at 3am this morning was intact later this morning and again late this afternoon with no leaking. Pouch in place is one piece with opening in wafer offset from incision appropriately. Landscape of abdomen appears unchanged from when last assessed by this RN. Unable to determine cause of leaking at this time, however recommend ensuring that 1 pc pouch is being used and opening is being offset to accommodate proximity to incision. Ostomy Team Plan: follow up in 1-2 days Recommendations: - Empty pouch when 1/3-1/2 full. Apply new pouching system every 3-5 days. - Use adhesive remover to loosen tape border. - Clean skin with warm water only and washcloth. (Do not use scented soaps, alcohol, or baby wipes around the stoma) - Measure stoma and cut wafer to exact size, offset opening from abdominal incision (template left in room) - Prep surrounding skin with Coloplast barrier spray (#[id number]), air dry. If peristomal skin red apply stoma powder first and dust off excess, then apply barrier spray. Let dry. - Apply new pouch, Convatec (#[id number]) flat, cut to fit one piece (please do not use 2 piece) - Hold in place for 5-10 Minutes using warmth of hands to secure wafer Sign: Alicia Torrez RN BSN, ON 11/01/2025 4:04 PM * Miky Villarreal PA-C - 11/01/2025 10:46 AM ESTAssociated Order(s): IP CONSULT TO INTERVENTIONAL RADIOLOGY; IP CONSULT TO INTERVENTIONAL RADIOLOGY IR Consultation Note Date of Consult: 11/01/2025 Current Attending: Eddie Alicia MD Name: Sis Valdez Age: 55 y.o. : 1970 Sex: female Assessment and Plan: Chart and imaging reviewed. Bilateral PCN tubes were evaluated on CT by IR attending, and looks appropriately positioned on CT. PCNs were evaluated at bedside and flushed with out difficulty with 10 ml of normal saline. Urine actively draining in drainage bags. Bilateral dressings were reinforced at bedside. No intervention recommended at this time. Reviewed with Dr. Spaulding who agrees with this assessment and plan. Miky Villarreal PA-C 11/01/2025 10:47 AM Please direct any questions regarding guidelines to the screening nurse at ext: [id number] Please direct any questions regarding procedure time/ date to the specific imaging modality: US: ext: [id number] CT: ext: 66484 Fluoroscopy: ext: 76685 IR: ext: 50889 Meds: Medications Scheduled Medication Ordered Dose/Rate, Route, Frequency Last Action ampicillin-sulbactam (UNASYN) 3 g in sodium chloride-MBP (NS) 100 mL IVPB-MBP 3 g, IV, Q6H Stopped, 11/01 822 ARIPiprazole (ABILIFY) tablet 20 mg 20 mg, PO, Daily Given, 20 mg at 11/01 816 [Provider Held] ascorbic acid (VITAMIN C) tablet 250 mg On hold since Sat10/26/2025 at 0415 until manually unheld; held by Kelly Pérez MDHold Reason: NPO On hold since Sat10/26/2025 at 0415 until manually unheld (Needs Review) Hold reason: NPO 250 mg, PO, Daily Given, 250 mg at 10/25 1018 aspirin enteric coated (ECOTRIN LOW STRENGTH) tablet 81 mg 81 mg, PO, Nightly Given, 81 mg at 10/31 2017 atorvastatin (LIPITOR) tablet 40 mg 40 mg, PO, Nightly Given, 40 mg at 10/31 2017 baclofen (LIORESAL) tablet 10 mg 10 mg, PO, TID Given, 10 mg at 11/01 816 buPROPion (WELLBUTRIN XL) 24 hr tablet 300 mg 300 mg, PO, QAM Given, 300 mg at 11/01 816 diclofenac (VOLTAREN) 1 % gel 2 g 2 g, TOP, 4x Daily Given, 2 g at 10/31 903 docusate sodium (COLACE) capsule 100 mg 100 mg, PO, BID Given, 100 mg at 11/01 816 enoxaparin (LOVENOX) syringe 40 mg 40 mg, SC, Q24H RACHEL Given, 40 mg at 11/01 816 ferrous sulfate EC tablet 325 mg 325 mg, PO, Daily Given, 325 mg at 11/01 816 gabapentin (NEURONTIN) capsule 300 mg 300 mg, PO, TID Given, 300 mg at 11/01 816 haloperidol (HALDOL) tablet 2.5 mg 2.5 mg, PO, BID Ordered insulin lispro (HumaLOG/ADMELOG) 100 units/mL injection 1-6 Units 1-6 Units, SC, TID with meals Given, 4 Units at 10/31 1226 levothyroxine (SYNTHROID, LEVOTHROID) tablet 250 mcg 250 mcg, PO, Daily 6AM Given, 250 mcg at 11/01 0650 [Provider Held] lisinopril (PRINIVIL,ZeSTRIL) tablet 2.5 mg On hold since 10/23/2025 at 0127 until manually unheld; held by Antoni Walker Reason: Change in vital signs On hold since 10/23/2025 at 0127 until manually unheld (Needs Review) Hold reason: Change in vital signs 2.5 mg, PO, Daily Ordered loratadine (CLARITIN) tablet 10 mg 10 mg, PO, QAM Given, 10 mg at 11/01 817 melatonin tablet 3 mg 3 mg, PO, Nightly Given, 3 mg at 10/31 2017 montelukast (SINGULAIR) tablet 10 mg 10 mg, PO, Nightly Given, 10 mg at 10/31 2017 PANTOprazole (PROTONIX) EC tablet 40 mg 40 mg, PO, Daily Given, 40 mg at 11/01 816 sucralfate (CARAFATE) tablet 1 g 1 g, PO, 4x daily Given, 1 g at 11/01 816 PRN Medication Ordered Dose/Rate, Route, Frequency Last Action albuterol (PROVENTIL HFA; VENTOLIN HFA) inhaler 2 puff 2 puff, IN, Q4H PRN Ordered clonazePAM (KlonoPIN) tablet 1 mg 1 mg, PO, Q12H PRN Given, 1 mg at 10/31 2025 dextrose 50 % solution 12.5 g (Or Linked Group #1) 12.5 g, IV, Q15 Min PRN Ordered dextrose 50 % solution 25 g (Or Linked Group #1) 25 g, IV, Q15 Min PRN Ordered glucagon (GLUCAGEN) injection 1 mg (Or Linked Group #1) 1 mg, IM, Daily PRN Ordered glucose (GLUTOSE 15) 40 % oral gel 37.5 g (Or Linked Group #1) 1 Tube, PO, Q15 Min PRN Ordered glucose (GLUTOSE 15) 40 % oral gel 75 g (Or Linked Group #1) 2 Tube, PO, Q15 Min PRN Ordered hydrOXYzine HCl (ATARAX) tablet 50 mg 50 mg, PO, Q6H PRN Given, 50 mg at 10/31 1117 iohexol (OMNIPAQUE) 350 mg/mL injection 30 mL 30 mL, PO, Once in imaging Ordered naloxone (NARCAN) 0.4 mg/mL injection 0.4 mg 0.4 mg, IV, Q5 Min PRN Ordered ondansetron (ZOFRAN) injection 4 mg 4 mg, IV, Q6H PRN Ordered oxyCODONE (ROXICODONE) immediate release tablet 10 mg 10 mg, PO, Q3H PRN Given, 10 mg at 11/01 0308 oxyCODONE (ROXICODONE) immediate release tablet 5 mg 5 mg, PO, Q3H PRN Given, 5 mg at 10/26 0947 simethicone (MYLICON) chewable tablet 80 mg 80 mg, PO, Q6H PRN Ordered Allergies: Allergies[1] Recent Labs: Lab Results Component Value Date PLT 551 (H) 11/01/2025 Lab Results Component Value Date INR 1.3 10/22/2025 Lab Results Component Value Date CREAT 1.03 11/01/2025 BUN 6 (L) 11/01/2025 NA 142 11/01/2025 K 4.1 11/01/2025 CL 108 (H) 11/01/2025 CO2 24 11/01/2025 Vitals: Vitals: 11/01/25 0016 11/01/25 0140 11/01/25 0249 11/01/25 0742 BP: (!) 104/56 (!) 140/70 110/60 BP Location: Right arm Right arm Right arm Patient Position: Lying Sitting Lying Pulse: 82 68 68 68 Resp: 18 18 18 Temp: 98.5 ??F (36.9 ??C) 96.9 ??F (36.1 ??C) 98.1 ??F (36.7 ??C) TempSrc: Tympanic Tympanic Tympanic SpO2: 100% 99% 99% 99% Weight: Height: [1] No Known Allergies * Gillian Hill - 10/29/2025 1:58 PM ESTAssociated Order(s): IP CONSULT TO NUTRITION SERVICES [facility] Nutrition Note Visit Type: consult, education Reason for Dietitian/DTR Visit: consult, education. Reason for Admission: Sepsis (HCC) Pertinent Medical History: Past Medical History: Diagnosis Date Anemia Anxiety Bipolar disorder (HCC) COPD (chronic obstructive pulmonary disease) (HCC) Diabetes mellitus (HCC) Hyperlipidemia Non-small cell lung cancer (HCC) s/p resection Obesity Sleep apnea Thyroid cancer (HCC) s/p thyroidectomy Interventions/Recommendations: Food & Nutrient Delivery: 1, Continue with 60 gm CHO/meal, Low fiber diet. 2. RD to order Ensure Max at breakfast/lunch, Glucerna at dinner. 3. Monitor intake, weights and lab/BG for trends. 4. Monitor skin integrity Nutrition Education/Counseling: Learner: patient Readiness: Not interested in nutrition education during visit Method: Handout Topics: Low Fat Low Fiber Other: Colostomy nutrition education handout left for pt to review., Oral Nutrition Supplement Use Response: needs reinforcement Comprehension: Fair Coordination of Nutrition Care: Collaboration with RD Nutrition Plan for Discharge/Transfer: CHO controlled, low fiber diet. Nutrition Assessment: Pt is a 55 yo female admitted for sepsis with known tubo-ovarian abscess and MADELINE with hydronephrosis. She had bilateral nephrostomy tubes and 2 abdominal/pelvic drains places on 10/23. She had an exploratory laparotomy, abdominal washout, colostomy, and flexible sigmoidoscopy on 10/25. She developed AMS post op 10/25. Per MD notes AMS resolved. Met with pt at bedside. She was uncomfortable, wanted to be repositioned and not up to speaking with this specifications writer for very long. She reports appetite good on current diet. Intake 50-75% of meals. Pt receptive to above ONS being added. She is unable to provide weight hx. No weight hx in EMR. BG trends. Phos low, replete per MD/Team. Continue with current diet. Nutrition to follow per protocol. Typical Food & Fluid Intake: Diabetic diet. Eats 3 meals daily Factors Affecting Nutritional Intake: appetite Food Related Allergies: NKFA Cultural/Ethnic Preferences: None noted/reported. Food Insecurity Concerns: Never true Weight: Wt Readings from Last 1 Encounters: 10/22/25 96.6 kg (212 lb 15.4 oz) Wt Readings from Last 3 Encounters: 10/22/25 96.6 kg (212 lb 15.4 oz) Nutrition Physical Findings: Physical Appearance: obese (BMI 32.62) Gastrointestinal: colostomy (Ostomy output 100 ml so far today.) Tubes: other (see comments) (Bilateral nephrostomy tubes, Drains right gluteal, LLQ) Oral/Mouth Cavity: other (see comments) (Denies) Skin: other (see comments) (Incision abdomen) Wound Documentation Reviewed: yes Labs: POC BG 136-198 mg/dl A1c 9.0% BUN 5, Phos 2.2, WBC 33 Diagnostics: Reviewed Medications: IV abx, Lipitor, Insulin, Synthroid, Protonix, Carafate Food & Drug/Nutrient Interactions: no Current Diet: Diet Diabetic/ Calorie Controlled; Carb Counting 60g/meal [phone] kcal; Low Fiber/ Low Residue Intake Compared to Estimated Needs: Energy Intake: other (see comments) (50-75% of meals) x 2 days Protein Intake: other (see comments) (50-75% of meals) x 2 days Fluid Intake: other (see comments) (1080 ml PO) Educational Needs Assessment: Assessed patient's learning needs. Barriers to Education: Desire/Motivation and Mood Monitoring & Evaluation: Goals: Po intakes meet at least 75% of pt's estimated nutritional needs. Glycemic control with FSBS 70-180mg/dL Monitoring/Evaluation: RD/DTR will monitor and evaluate nutrition plan of care and provide additional interventions and recommendations based on nutrition/clinical status. Sign: Gillian Hill DTR 10/29/2025 2:09 PM Cosigned by Iman Savage RD at 10/29/2025 6:18 PM EST Associated attestation - Iman Savage RD - 10/29/2025 6:18 PM EST I have personally reviewed the patient and approve the following documentation authored by the DTR. Additional assessment includes: Noted diet was changed from a diabetic 60 g/meal to a CL. ONS modified to Ensure Clear and Gelatein each BID. Will modify ONS when allowed. Nutrition Diagnosis: Intake: Increased nutrient needs (specify) (protein) related to increased demand, clinical status as evidenced by infection ( on antibiotic), presence of incision Diagnosis Status: (new). Estimated Daily Energy and Protein Needs: Energy Needs: 1932 Kcals/day ( 20 kcal/kg) [place]: 1616 x 1.1 - 1.2 RMR = 1778 - 1939 kcal Protein Needs: 95 - 126 gm Fluids: 1800 ml Estimated/Assessed Carbohydrates Needs: 60 g/meal Sign: Iman Savage RD 10/29/2025 2:11 PM * Alicia Torrez RN - 10/29/2025 10:36 AM EST [facility] Ostomy Care Consult Visit Date: 10/29/2025 Patient Name: Sis Valdez Date of : 1970 Reason for Consult: follow up Ostomy History: 55 year old female s/p ex-lap, abdominal washout and loop colostomy creation on 10/25/25. Patient seen today for education and pouch change. Pertinent Labs: Albumin Date Value Ref Range Status 10/22/2025 3.5 3.5 - 5.0 g/dL Final No results found for: TRANSFERRIN No results found for: PREALBUMIN Ostomy Assessment: Colostomy (Adult) 10/25/25 loop colostomy (Active) Stoma Appearance swollen;moist;pink;protruding above skin level 10/29/25 1000 Peristomal Skin intact 10/29/25 1000 Appliance 1-piece;changed 10/29/25 1000 Accessories/Skin Care barrier substance over peristomal skin;cleansed with water;wafer barrier overperistomal skin 10/29/25 1000 Stoma Function flatus;stool 10/29/25 1000 Tolerance no signs/symptoms of discomfort 10/29/25 1000 Number of days: 4 Ostomy Team Summary Assessment: Please use [facility] #[id number] one piece cut to fit pouches - do NOT use 2 pc pouches or moldable wafers. Template in room for cutting wafer Delirium improving, patient more alert and oriented, however slightly lethargic - nodded off twice for a very short period of time during visit. Floor RN reports difficulty with pouch adherence, pouch being changed about once per shift, issue with proximity to midline abdominal incision. Pouch in place at time of visit was a 2 pc drainable pouch but with moldable 2 pc wafer - top of adhesive not adhered to skin d/t contact with incision. Suspect ongoing leaking is due to several factors: Abdomen is round and distended, coupling of the 2 pc wafer is stiff and does not allow flexibility to conform to shape of abdomen - thereby pulling adhesive up off of skin d/t inflexibility of coupling Moldable wafer not able to facilitate offsetting opening of wafer in order to offset from incision d/t proximity 2 pc wafer with smaller skin barrier and larger area of adhesive than 1 pc flat cut to fit wafer Changed pouch to [facility] #[id number] cut to fit flat drainable 1 pc pouch, larger skin barrier and more flexibility to conform to shape of abdomen. Was able to offset opening in wafer to accommodate proximity to incision and able to adhere 99% of all adhesive without interfering with incision. Box of [id number] pouches in room; this RN wrote on box specifying to use these pouches, also left template forcutting wafer with offset opening taped to box. Notified floor RN of all of the above. Stoma pink, moist, and protruding. Producing flatus and stool. Periwound intact. Educated patient on meaning of new terms ostomy, colostomy, and stoma. Patient able to look at pouch and stoma, was able to watch pouch change while RN explained each step including setting up supplies, washing with only warm water, measuring stoma. Educated on frequency of pouch change and emptying. Patient alert enough to be able to engage in visit, verbalizes understanding of teaching, but unclear how much education she will be able to retain at this time d/t resolving delirium. Ostomy Team Plan: follow up in 1-2 days. Needs adhesive remover Recommendations: - Empty pouch when 1/3-1/2 full. Apply new pouching system every 3-5 days. - Use adhesive remover to loosen tape border. - Clean skin with warm water only and washcloth. (Do not use scented soaps, alcohol, or baby wipes around the stoma) - Measure stoma and cut wafer to exact size, offset opening from abdominal incision (template left in room) - Prep surrounding skin with Coloplast barrier spray (#[id number]), air dry. If peristomal skin red apply stoma powder first and dust off excess, then apply barrier spray. Let dry. - Apply new pouch, Convatec (#[id number]) flat, cut to fit one piece (please do not use 2 piece) - Hold in place for 5-10 Minutes using warmth of hands to secure wafer Sign: Alicia Torrez RN BSN, CWON 10/29/2025 10:36 AM * Valentina Smith RN - 10/28/2025 11:09 AM EST [facility] Ostomy Care Consult Visit Date: 10/28/2025 Patient Name: Sis Valdez Date of : 1970 Reason for Consult: follow up Ostomy History: 55 year old female s/p ex-lap, abdominal washout and loop colostomy creation on 10/25/25. Ostomy team following for education. Pertinent Labs: Albumin Date Value Ref Range Status 10/22/2025 3.5 3.5 - 5.0 g/dL Final Ostomy Assessment: Colostomy (Adult) 10/25/25 loop colostomy (Active) Stoma Appearance moist;pink;protruding above skin level 10/28/25 1027 Peristomal Skin unable to assess, covered by appliance 10/28/25 1027 Appliance 2-piece;open end;intact;no leakage 10/28/25 1027 Accessories/Skin Care wafer barrier over peristomal skin 10/28/25 1027 Stoma Function flatus;stool 10/28/25 1027 Tolerance no signs/symptoms of discomfort 10/28/25 1027 Number of days: 3 Ostomy Team Summary Assessment: Patient still confused, COIN at bedside. Pouch changed by nursing overnight due to leakage. Currently 2 piece intact, no leakage noted. Stool present in pouch. No family at bedside at this time. Ostomy team will continue to follow for education when patient more appropriate. Ostomy Team Plan: Ostomy team will continue to follow for education when patient appropriate. Recommendations: Empty ostomy pouch 1/3 to 1/2 full. Change ostomy pouch every 3-5 days. Cleanse peristomal skin with warm water only. No soap, alcohol, comfort /baby wipes on peristomal skin. Sign: Valentina Smith RN, CWOCN 10/28/2025 11:09 AM * Valentina Smith RN - 10/27/2025 11:13 AM EST [facility] Ostomy Care Consult Visit Date: 10/27/2025 Patient Name: Sis Valdez Date of : 1970 Reason for Consult: initial Ostomy History: 55 year old female s/p ex-lap, abdominal washout and loop colostomy creation on 10/25/25. Pertinent Labs: Albumin Date Value Ref Range Status 10/22/2025 3.5 3.5 - 5.0 g/dL Final Ostomy Assessment: Colostomy (Adult) 10/25/25 loop colostomy (Active) Stoma Appearance moist;pink;protruding above skin level 10/27/25 1100 Peristomal Skin unable to assess, covered by appliance 10/27/25 1100 Appliance 2-piece;open end;intact;no leakage 10/27/25 1100 Accessories/Skin Care wafer barrier over peristomal skin 10/27/25 1100 Stoma Function flatus;stool 10/27/25 1100 Tolerance no signs/symptoms of discomfort 10/27/25 1100 Number of days: 2 Ostomy Team Summary Assessment: Patient in bilateral wrist restraints, alert and oriented to self, pleasant. She does not recall what surgery she had, states she has some abdominal pain but not bad. She states she lives with her Khalida and kids. Patient not currently appropriate for education due to delirium. Ostomy Team Plan: Ostomy team will continue to follow for education when patient appropriate. Recommendations: Empty ostomy pouch 1/3 to 1/2 full. Change ostomy pouch every 3-5 days. Cleanse peristomal skin with warm water only. No soap, alcohol, comfort /baby wipes on peristomal skin. Sign: Valentina Smith RN, CWOCN 10/27/2025 11:13 AM * Carlyn Raines RN - 10/26/2025 3:01 PM EST Attempted to see pt today for ostomy education. Pt is not on the floor, will follow up at a later date and time. * Keron Alvarez DO - 10/26/2025 8:31 AM ESTAssociated Order(s): IP CONSULT TO HOSPITALIST Images from the original note were not included. HOSPITAL MEDICINE INITIAL CONSULT NOTE Date of Consult: 10/26/2025 Patient's Primary Care Physician: Linda Murphy DO Physician Requesting Consult: Eddie Alicia MD Reason for Consultation: AMS Principal Problem: Sepsis (HCC) (POA: Unknown) Active Problems: Type 2 diabetes mellitus (HCC) (POA: Yes) Schizophrenia (HCC) (POA: Yes) Postoperative hypothyroidism (POA: Yes) Obstructive sleep apnea syndrome (POA: Yes) Gastroesophageal reflux disease (POA: Yes) Hyperlipidemia (POA: Yes) Hypertension (POA: Yes) Chronic obstructive lung disease (HCC) (POA: Yes) Bipolar disorder (HCC) (POA: Yes) Tubo-ovarian abscess (POA: Unknown) Urinary tract infection (POA: Unknown) MADELINE (acute kidney injury) (POA: Unknown) Anemia (POA: Unknown) Hypocalcemia (POA: Unknown) Hypokalemia (POA: Unknown) High anion gap metabolic acidosis (POA: Unknown) Ureteral obstruction (POA: Yes) Resolved Problems: ASSESSMENT & RECOMMENDATIONS Assessment: 55 year old female with past medical history of hypertension, hyperlipidemia, type 2 diabetes, COPD, DANIEL, schizophrenia, bipolar disorder, history of papillary thyroid carcinoma s/p thyroidectomy, history of NSCLC s/p resection admitted for sepsis with known tubo-ovarian abscess and MADELINE with hydronephrosis. She had bilateral nephrostomy tubes and 2 abdominal/pelvic drains places on 10/23. She hadan exploratory laparotomy, abdominal washout, colostomy, and flexible sigmoidoscopy on 10/25. She developed AMS postop 10/25 for which medicine is now consulted. Recommendations: AMS Suspect post-op/hospital acquired delirium Recent TSH mildly elevated, will repeat along with T4 Recent B12, ammonia unremarkable, repeat ammonia Check vitamin D Continue holding baclofen and gabapentin for now, would use Robaxin if needed until AMS resolves Resume psych meds per below when able, can use prn IV Haldol 2 mg prn until able to take PO Can hold off on brain imaging for now Discontinue restraints as soon as able, perhaps after she is transferred out of PACU, can use COIN if needed Would ask psychiatry input if no improvement in the next day or 2 Addendum - TSH elevating and T4 low, will start IV levothyroxine 500 mcg twice weekly per protocol,please discontinue when able to tolerate PO Tubo-ovarian abscess UTI Sepsis S/p pelvic and left adnexal drain placement 10/23, cultures with E. coli and strep constellatus Urine cultures from nephrostomy tubes 10/23 NTD S/p ex lap, abdominal washout, colostomy, flex sig 10/25 ID following Currently on Rocephin and Flagyl MADELINE Hydronephrosis Creatinine 4.59 on admission, baseline 1.0-1.3 Urology following S/p bilateral nephrostomy tubes 10/23 On IV fluids Creatinine continues to improve Hyperlipidemia Continue home atorvastatin 40 mg Type 2 diabetes A1c 9.0% this admission On metformin, Ozempic, and glipizide at home Glucose currently controlled on sliding scale alone Normocytic anemia Hemoglobin 7.0 on presentation B12 unremarkable Iron panel consistent with inflammation Hemoglobin has remained stable without transfusion Bipolar disorder Schizophrenia Home Buspar, Abilify, Haldol, Klonopin currently on hold while NPO Given AMS, would hold Klonopin but otherwise resume home meds when able History of papillary thyroid carcinoma S/p thyroidectomy 2020 On levothyroxine 200 mcg qday at home, starting IV per above as she remains NPO COPD/asthma History of NSCLC DANIEL S/p LLL resection 02/2025 On 2 L O2 qhs Continue home Singulair and prn albuterol GERD On PPI SUBJECTIVE Chief Complaint: AMS History of Present Illness: 55 year old female with past medical history of hypertension, hyperlipidemia, type 2 diabetes, COPD, DANIEL, schizophrenia, bipolar disorder, history of papillary thyroid carcinoma s/p thyroidectomy, history of NSCLC s/p resection admitted for sepsis with known tubo-ovarian abscess and MADELINE with hydronephrosis. Notably, she had a recent admission for sepsis secondary to UTI and had IR drainage of pelvic abscesses. She completed a course of oral antibiotics upon discharge. She represented to OSH on 10/22 with confusion and was found to have a creatinine of 3.83 and a left adnexal collection on CT with hydronephrosis. She was transferred to for further management ID and gynecology were consulted. She was continued on IV antibiotics. She had bilateral nephrostomy tubes and 2 abdominal/pelvic drains places on 10/23. Cultures grew E. coli and strep constellatus.She had an exploratory laparotomy, abdominal washout, colostomy, and flexible sigmoidoscopy on 10/25. She developed AMS postop that was initially thought to be secondary to anesthesia but persisted (though improved) through this morning. Medicine has been consulted for AMS. Review of Systems: Review of Systems - Negative except confusion, and abdominal pain OBJECTIVE Past Medical History: Diagnosis Date Anemia Anxiety Bipolar disorder (HCC) COPD (chronic obstructive pulmonary disease) (HCC) Diabetes mellitus (HCC) Hyperlipidemia Non-small cell lung cancer (HCC) s/p resection Obesity Sleep apnea Thyroid cancer (HCC) s/p thyroidectomy Medications: Medication/MAR Report: Medications Scheduled Medication Ordered Dose/Rate, Route, Frequency Last Action acetaminophen (OFIRMEV) injection 1,000 mg 1,000 mg, IV, Q6H New Bag, 1,000 mg at 10/26 1032 [Provider Held] ARIPiprazole (ABILIFY) tablet 20 mg On hold since today at 041 until manually unheld; held by Antoni Cruz Reason: NPO On hold since today at 0415 until manually unheld Hold reason: NPO 20 mg, PO, Daily Given, 20 mg at 10/25 1018 [Provider Held] ascorbic acid (VITAMIN C) tablet 250 mg On hold since today at 0415 until manually unheld; held by Antoni Cruz Reason: NPO On hold since today at 0415 until manually unheld Hold reason: NPO 250 mg, PO, Daily Given, 250 mg at 10/25 1018 [Provider Held] aspirin enteric coated (ECOTRIN LOW STRENGTH) tablet 81 mg On hold since 10/23/2025 at 0155 until manually unheld; held by Sisi Freitas MDHold Reason: Other - Comment requiredHold Comment: Unclear indication for home ASA On hold since 10/23/2025 at 0155 until manually unheld (Needs Review) Hold reason: Other - Comment required, Hold comment: Unclear indication for home ASA 81 mg, PO, Nightly Ordered [Provider Held] atorvastatin (LIPITOR) tablet 40 mg On hold since today at 0415 until manually unheld; held by Antoni Cruz Reason: NPO On hold since today at 0415 until manually unheld Hold reason: NPO 40 mg, PO, Nightly Given, 40 mg at 10/24 2149 [Provider Held] baclofen (LIORESAL) tablet 10 mg On hold since today at 0415 until manually unheld;held by Kelly Pérez MDHold Reason: NPO On hold since today at 0415 until manually unheld Hold reason: NPO 10 mg, PO, TID Given, 10 mg at 10/25 1403 [Provider Held] buPROPion (WELLBUTRIN XL) 24 hr tablet 300 mg On hold since today at 0415 until manually unheld; held by Kelly Pérez MDHold Reason: NPO On hold since today at 0415 until manually unheld Hold reason: NPO 300 mg, PO, QAM Given, 300 mg at 10/25 0505 cefTRIAXone (ROCEPHIN) 2 g in sodium chloride-MBP (NS) 100 mL IVPB-MBP 2 g, IV, Q24H New Bag, 2 g at 10/26 1032 chlorhexidine gluconate 2 % wipes - daily CHG application No Dose/Rate, TOP, Daily Given, No Dose/Rate at 10/26 0952 diclofenac (VOLTAREN) 1 % gel 2 g 2 g, TOP, 4x Daily Given, 2 g at 10/24 0826 [Provider Held] docusate sodium (COLACE) capsule 100 mg On hold since today at 0415 until manually unheld; held by Antoni Cruz Reason: NPO On hold since today at 0415 until manually unheld Hold reason: NPO 100 mg, PO, BID Given, 100 mg at 10/25 1018 [Provider Held] ferrous sulfate EC tablet 325 mg On hold since today at 0415 until manually unheld;held by Antoni Cruz Reason: NPO On hold since today at 0415 until manually unheld Hold reason: NPO 325 mg, PO, Daily Given, 325 mg at 10/25 1018 [Provider Held] gabapentin (NEURONTIN) capsule 300 mg On hold since today at 0415 until manually unheld; held by Antoni Cruz Reason: NPO On hold since today at 0415 until manually unheld Hold reason: NPO 300 mg, PO, TID Given, 300 mg at 10/25 1417 [Provider Held] haloperidol (HALDOL) tablet 2.5 mg On hold since today at 0415 until manually unheld; held by Antoni Cruz Reason: NPO On hold since today at 0415 until manually unheld Hold reason: NPO 2.5 mg, PO, BID Given, 2.5 mg at 10/25 1050 heparin (porcine) 5000 unit/mL injection 5,000 Units 5,000 Units, SC, Q8H RACHEL Given, 5,000 Units at 10/26 0505 insulin lispro (HumaLOG/ADMELOG) 100 units/mL injection 1-5 Units 1-5 Units, SC, Q4H RACHEL Given, 1 Units at 10/26 0521 [Provider Held] levothyroxine (SYNTHROID, LEVOTHROID) tablet 200 mcg On hold since today at 0415 until manually unheld; held by Antoni Cruz Reason: NPO On hold since today at 0415 until manually unheld Hold reason: NPO 200 mcg, PO, Daily 6AM Given, 200 mcg at 10/25 0504 [Provider Held] lisinopril (PRINIVIL,ZeSTRIL) tablet 2.5 mg On hold since 10/23/2025 at 0127 until manually unheld; held by Sisi Freitas MDHold Reason: Change in vital signs On hold since 10/23/2025 at 0127 until manually unheld (Needs Review) Hold reason: Change in vital signs 2.5 mg, PO, Daily Ordered [Provider Held] loratadine (CLARITIN) tablet 10 mg On hold since 10/23/2025 at 0127 until manually unheld; held by Antoni Walker Reason: Change in vital signs On hold since 10/23/2025 at 0127 until manually unheld (Needs Review) Hold reason: Change in vital signs 10 mg, PO, QAM Ordered metroNIDAZOLE (FLAGYL) IVPB 500 mg in 100 mL NS (premix) 500 mg, IV, Q12H Stopped, 10/26 0630 [Provider Held] metroNIDAZOLE (FLAGYL) tablet 500 mg On hold since today at 0415 until manually unheld; held by Antoni Cruz Reason: NPO On hold since today at 0415 until manually unheld Hold reason: NPO 500 mg, PO, Q12H RACHEL Given, 500 mg at 10/25 1018 [Provider Held] montelukast (SINGULAIR) tablet 10 mg On hold since today at 0415 until manually unheld; held by Antoni Cruz Reason: NPO On hold since today at 0415 until manually unheld Hold reason: NPO 10 mg, PO, Nightly Given, 10 mg at 10/24 2149 [Provider Held] PANTOprazole (PROTONIX) EC tablet 40 mg On hold since today at 0415 until manually unheld; held by Antoni Cruz Reason: NPO On hold since today at 0415 until manually unheld Hold reason: NPO 40 mg, PO, Daily Given, 40 mg at 10/25 1018 [Provider Held] sucralfate (CARAFATE) tablet 1 g On hold since today at 0415 until manually unheld;held by Antoni Cruz Reason: NPO On hold since today at 0415 until manually unheld Hold reason: NPO 1 g, PO, 4x daily Given, 1 g at 10/25 1057 Continuous Medication Ordered Dose/Rate, Route, Frequency Last Action lactated ringers (LR) infusion 100 mL/hr, IV, Continuous New Bag, 100 mL/hr at 10/25 2124 lactated ringers (LR) infusion 125 mL/hr, IV, Continuous Ordered PRN Medication Ordered Dose/Rate, Route, Frequency Last Action albuterol (PROVENTIL HFA; VENTOLIN HFA) inhaler 2 puff 2 puff, IN, Q4H PRN Ordered [Provider Held] clonazePAM (KlonoPIN) tablet 1 mg On hold since today at 0415 until manually unheld; held by Antoni Cruz Reason: NPO On hold since today at 0415 until manually unheld Hold reason: NPO 1 mg, PO, Q12H PRN Given, 1 mg at 10/24 2320 dextrose 50 % solution 12.5 g (Or Linked Group #1) 12.5 g, IV, Q15 Min PRN Given, 12.5 g at 10/23 1748 dextrose 50 % solution 25 g (Or Linked Group #1) 25 g, IV, Q15 Min PRN See Alternative, 10/23 1748 glucagon (GLUCAGEN) injection 1 mg (Or Linked Group #1) 1 mg, IM, Daily PRN See Alternative, 10/23 1748 glucose (GLUTOSE 15) 40 % oral gel 37.5 g (Or Linked Group #1) 1 Tube, PO, Q15 Min PRN See Alternative, 10/23 1748 glucose (GLUTOSE 15) 40 % oral gel 75 g (Or Linked Group #1) 2 Tube, PO, Q15 Min PRN See Alternative, 10/23 1748 HYDROmorphone (DILAUDID) injection 0.5 mg 0.5 mg, IV, Q3H PRN Ordered HYDROmorphone (DILAUDID) injection 0.8 mg 0.8 mg, IV, Q3H PRN Ordered HYDROmorphone (DILAUDID) injection 1 mg 1 mg, IV, Q3H PRN Ordered [Provider Held] hydrOXYzine HCl (ATARAX) tablet 50 mg On hold since 10/23/2025 at 0127 until manually unheld; held by Antoni Walker Reason: Change in vital signs On hold since 10/23/2025 at 0127 until manually unheld (Needs Review) Hold reason: Change in vital signs 50 mg, PO, Q6H PRN Ordered naloxone (NARCAN) 0.4 mg/mL injection 0.4 mg 0.4 mg, IV, Q5 Min PRN Ordered ondansetron (ZOFRAN) injection 4 mg 4 mg, IV, Q6H PRN Ordered [Provider Held] oxyCODONE (ROXICODONE) immediate release tablet 10 mg On hold since today at 0415 until manually unheld; held by Antoni Cruz Reason: NPO On hold since today at 0415 until manually unheld Hold reason: NPO 10 mg, PO, Q3H PRN Ordered [Provider Held] oxyCODONE (ROXICODONE) immediate release tablet 5 mg On hold since today at 0415 until manually unheld; held by Antoni Cruz Reason: NPO On hold since today at 0415 until manually unheld Hold reason: NPO 5 mg, PO, Q3H PRN Given, 5 mg at 10/26 0947 simethicone (MYLICON) chewable tablet 80 mg 80 mg, PO, Q6H PRN Ordered Allergies[1] Physical Exam Vitals: 10/26/25 0400 10/26/25 0458 10/26/25 0700 10/26/25 0800 BP: 124/60 136/62 (!) 126/58 (!) 147/71 BP Location: Left arm Left arm Left arm Patient Position: Lying Lying Lying Pulse: 96 (!) 102 85 92 Resp: (!) 21 17 17 14 Temp: 98.2 ??F (36.8 ??C) TempSrc: Tympanic SpO2: 97% 98% 98% 97% Weight: Height: Intake/Output Summary (Last 24 hours) at 10/26/2025 0831 Last data filed at 10/26/2025 0600 Gross per 24 hour Intake 2730 ml Output 3180 ml Net -450 ml Physical Exam Constitutional: General: She is not in acute distress. Appearance: She is obese. Comments: Pleasant female lying in bed comfortably, wrist restraints and mittens in place HENT: Mouth/Throat: Mouth: Mucous membranes are moist. Cardiovascular: Rate and Rhythm: Normal rate and regular rhythm. Heart sounds: No murmur heard. Pulmonary: Effort: No respiratory distress. Comments: On 2 L O2 Abdominal: General: There is no distension. Tenderness: There is abdominal tenderness. Comments: [address] with serosanguinous drainage, colostomy in place, no surrounding erythema or edema Musculoskeletal: Cervical back: No rigidity. Neurological: Comments: Oriented to person, states she is in a medical facility and that it is 09/2025, strength 5/5 in BUE and BLE Relevant data reviewed: Results from last 7 days Lab Units 10/26/25 0357 10/25/25 0546 10/24/25 0646 WHITE BLOOD CELL COUNT Thou/uL 37.5* 24.3* 21.8* HEMOGLOBIN g/dL 7.6* 7.8* 7.5* HEMATOCRIT % 23.1* 24.0* 23.6* PLATELET COUNT Thou/uL 465* 482* 422 Results from last 7 days Lab Units 10/26/25 0752 10/26/25 0520 10/26/25 0357 10/25/25 0842 10/25/25 0546 10/24/25 0740 10/24/25 0646 10/23/25 0246 10/22/25 1818 SODIUM mmol/L -- -- 145 -- 141 -- 146* < > 135* POTASSIUM mmol/L -- -- 4.1 -- 3.3* -- 3.5 < > 3.2* CHLORIDE mmol/L -- -- 111* -- 106 -- 111* < > 96* CO2 mmol/L -- -- 22 -- 22 -- 21* < > 20* BUN mg/dL -- -- 15 -- 20 -- 32* < > 45* CREATININE mg/dL -- -- 1.30* -- 1.59* -- 2.25* < > 3.83* CALCIUM mg/dL -- -- 8.4* -- 8.7 -- 8.4* < > 7.8* GLUCOSE mg/dL -- -- 171* -- 129* -- 72 < > 85 GLUCOSE, POC mg/dL 127* 166* -- < > -- < > -- < > -- EGFR -- -- 49* -- 39* -- 25* < > 13* ALBUMIN g/dL -- -- -- -- -- -- -- -- 3.5 PROTEIN, TOTAL g/dL -- -- -- -- -- -- -- -- 7.2 BILIRUBIN TOTAL mg/dL -- -- -- -- -- -- -- -- 0.3 ALK PHOS U/L -- -- -- -- -- -- -- -- 125* ALT U/L -- -- -- -- -- -- -- -- 28 AST U/L -- -- -- -- -- -- -- -- 56* < > = values in this interval not displayed. Lab Results Component Value Date ALT 28 10/22/2025 AST 56 (H) 10/22/2025 ALKPHOS 125 (H) 10/22/2025 BILITOT 0.3 10/22/2025 Results from last 7 days Lab Units 10/22/25 1818 PROTHROMBIN TIME (PT) seconds 15.0* APTT seconds 26 INR 1.3 proBNP, N-terminal Date Value Ref Range Status 10/23/2025 1,039 (H) <125 pg/mL Final Blood Cultures: Lab Results Component Value Date CULTURE Negative after 2 days 10/23/2025 Urine Cultures: Lab Results Component Value Date HYALNCSTUA Present 10/22/2025 BILIUA Negative 10/22/2025 BLOODUA Small (A) 10/22/2025 CLARITYUA Cloudy 10/22/2025 COLORUA Yellow 10/22/2025 KETONESUA Negative 10/22/2025 LEUKOCYTESUA Moderate (A) 10/22/2025 NITRITEUA Negative 10/22/2025 PHUA 5.0 10/22/2025 PROTEINUA Trace (A) 10/22/2025 RBCUA 1 10/22/2025 SPECGRAVUA 1.010 10/22/2025 WBCUA >25 (H) 10/22/2025 C. Difficile: No results found for: CDIFFTOX , NAP1 Current Medications: Current Medications[2] Imaging Studies: None Sign: Keron Alvarez DO 10/26/2025 8:31 AM [1] No Known Allergies [2] Current Facility-Administered Medications Medication Dose Route Frequency Provider Last Rate Last Admin lactated ringers (LR) infusion 125 mL/hr Intravenous Continuous Tim Spangler DO lactated ringers (LR) infusion 100 mL/hr Intravenous Continuous Kelly Pérez MD 100 mL/hr at 10/25/252123 100 mL/hr at 10/25/252123 acetaminophen (OFIRMEV) injection 1,000 mg 1,000 mg Intravenous Q6H Kelly Pérez MD Stopped at 10/26/25 0521 albuterol (PROVENTIL HFA; VENTOLIN HFA) inhaler 2 puff 2 puff Inhalation Q4H PRN Kelly Pérez MD [Provider Held] ARIPiprazole (ABILIFY) tablet 20 mg 20 mg Oral Daily Kelly Pérez MD 20 mg at 10/25/25 1018 [Provider Held] ascorbic acid (VITAMIN C) tablet 250 mg 250 mg Oral Daily Roberto Freedman MD 250 mg at 10/25/25 1018 [Provider Held] aspirin enteric coated (ECOTRIN LOW STRENGTH) tablet 81 mg 81 mg Oral Nightly Roberto Freedman MD [Provider Held] atorvastatin (LIPITOR) tablet 40 mg 40 mg Oral Nightly Kelly Pérez MD 40 mg at 10/24/25 2149 [Provider Held] baclofen (LIORESAL) tablet 10 mg 10 mg Oral TID Kelly Pérez MD 10 mg at 10/25/25 1403 [Provider Held] buPROPion (WELLBUTRIN XL) 24 hr tablet 300 mg 300 mg Oral QAM Kelly Pérez MD 300 mgat 10/25/25 0505 cefTRIAXone (ROCEPHIN) 2 g in sodium chloride-MBP (NS) 100 mL IVPB-MBP 2 g Intravenous Q24H Kelly Pérez MD Stopped at 10/25/25 1223 chlorhexidine gluconate 2 % wipes - daily CHG application Topical Daily Marcela Muro MD [Provider Held] clonazePAM (KlonoPIN) tablet 1 mg 1 mg Oral Q12H PRN Roberto Freedman MD 1 mg at112/25/24 2320 glucose (GLUTOSE 15) 40 % oral gel 37.5 g 1 Tube Oral Q15 Min PRN Roberto Freedman MD Or glucose (GLUTOSE 15) 40 % oral gel 75 g 2 Tube Oral Q15 Min PRN Roberto Freedman MD Or dextrose 50 % solution 12.5 g 12.5 g Intravenous Q15 Min PRN Roberto Freedman MD 12.5 g at 10/23/25 1748 Or dextrose 50 % solution 25 g 25 g Intravenous Q15 Min PRSerina Freedman MD Or glucagon (GLUCAGEN) injection 1 mg 1 mg Intramuscular Daily PRN Roberto Freedman MD diclofenac (VOLTAREN) 1 % gel 2 g 2 g Topical 4x Daily Roberto Freedman MD 2 g at 10/24/25 0826 [Provider Held] docusate sodium (COLACE) capsule 100 mg 100 mg Oral BID Roberto Freedman MD 100 mg at 10/25/25 1018 [Provider Held] ferrous sulfate EC tablet 325 mg 325 mg Oral Daily Roberto Freedman MD 325 mg at112/26/24 1018 [Provider Held] gabapentin (NEURONTIN) capsule 300 mg 300 mg Oral TID Kelly Pérez MD 300 mg at 10/25/25 1417 [Provider Held] haloperidol (HALDOL) tablet 2.5 mg 2.5 mg Oral BID Roberto Freedman MD 2.5 mg at112/26/24 1050 heparin (porcine) 5000 unit/mL injection 5,000 Units 5,000 Units Subcutaneous Q8H [facility] Kelly Pérez MD 5,000 Units at 10/26/25 0505 HYDROmorphone (DILAUDID) injection 0.5 mg 0.5 mg Intravenous Q3H PRN Kelly Pérez MD HYDROmorphone (DILAUDID) injection 0.8 mg 0.8 mg Intravenous Q3H PRN Kelly Pérez MD HYDROmorphone (DILAUDID) injection 1 mg 1 mg Intravenous Q3H PRN Kelly Pérez MD [Provider Held] hydrOXYzine HCl (ATARAX) tablet 50 mg 50 mg Oral Q6H PRN Roberto Freedman MD insulin lispro (HumaLOG/ADMELOG) 100 units/mL injection 1-5 Units 1-5 Units Subcutaneous Q4H RACHEL Roberto Freedman MD 1 Units at 10/26/25 0521 [Provider Held] levothyroxine (SYNTHROID, LEVOTHROID) tablet 200 mcg 200 mcg Oral Daily 6AM Kelly Pérez MD 200 mcg at 10/25/25 0504 [Provider Held] lisinopril (PRINIVIL,ZeSTRIL) tablet 2.5 mg 2.5 mg Oral Daily Roberto Freedman MD [Provider Held] loratadine (CLARITIN) tablet 10 mg 10 mg Oral QAM Roberto Freedman MD metroNIDAZOLE (FLAGYL) IVPB 500 mg in 100 mL NS (premix) 500 mg Intravenous Q12H Kelly Pérez MD Stopped at 10/26/25 0630 [Provider Held] metroNIDAZOLE (FLAGYL) tablet 500 mg 500 mg Oral Q12H [facility] Kelly Pérez MD 500 mg at 10/25/25 1018 [Provider Held] montelukast (SINGULAIR) tablet 10 mg 10 mg Oral Nightly Roberto Freedman MD 10 mg at 10/24/25 2149 naloxone (NARCAN) 0.4 mg/mL injection 0.4 mg 0.4 mg Intravenous Q5 Min PRN Kelly Pérez MD ondansetron (ZOFRAN) injection 4 mg 4 mg Intravenous Q6H PRN Kelly Pérez MD [Provider Held] oxyCODONE (ROXICODONE) immediate release tablet 10 mg 10 mg Oral Q3H PRN Kelly Pérez MD [Provider Held] oxyCODONE (ROXICODONE) immediate release tablet 5 mg 5 mg Oral Q3H PRN Kelly Pérez MD [Provider Held] PANTOprazole (PROTONIX) EC tablet 40 mg 40 mg Oral Daily Roberto Freedman MD 40 mg at 10/25/25 1018 simethicone (MYLICON) chewable tablet 80 mg 80 mg Oral Q6H PRN Kelly Pérez MD [Provider Held] sucralfate (CARAFATE) tablet 1 g 1 g Oral 4x daily Roberto Freedman MD 1 g at 10/25/25 1057 * Wilfredo Alvarado PA-C - 10/25/2025 11:05 AM ESTAssociated Order(s): IP CONSULT TO INTERVENTIONAL RADIOLOGY IR Brief Consult Note Date of Consult: 10/25/2025 Patient's Primary Care Physician: Linda Murphy DO Name: Sis Valdez Age: 55 y.o. Sex: female Indication: 1. Tubo-ovarian abscess 2. Ureteral obstruction IR consulted for drain study due to feculent material draining from newly placed drains. Communicated with surgery team to either get a CT with contrast injected into both drains if they need it in atimely manner before OR. If it is not needed today, can consider IR drain study to evaluate for fistula. Chart reviewed. * Stanislav Mcclelland DO - 10/25/2025 10:32 AM ESTAssociated Order(s): IP CONSULT TO GENERAL SURGERY Surgical Consult Note Date of Consult: 10/25/2025 Patient's Primary Care Provider: Linda Murphy DO Provider Requesting Consult: Emy Chopra Reason for Consultation: Concern for iatrogenic bowel injury secondary to IR drain Name: Sis Valdez Age: 55 y.o. Sex: female Principal Problem: Sepsis (HCC) (POA: Unknown) Active Problems: Type 2 diabetes mellitus (HCC) (POA: Yes) Schizophrenia (HCC) (POA: Yes) Postoperative hypothyroidism (POA: Yes) Obstructive sleep apnea syndrome (POA: Yes) Gastroesophageal reflux disease (POA: Yes) Hyperlipidemia (POA: Yes) Hypertension (POA: Yes) Chronic obstructive lung disease (HCC) (POA: Yes) Bipolar disorder (HCC) (POA: Yes) Tubo-ovarian abscess (POA: Unknown) Urinary tract infection (POA: Unknown) MADELINE (acute kidney injury) (POA: Unknown) Anemia (POA: Unknown) Hypocalcemia (POA: Unknown) Hypokalemia (POA: Unknown) High anion gap metabolic acidosis (POA: Unknown) Resolved Problems: Assessment & Plan Assessment 55 y.o. female with history of COPD, HTN, diabetes, schizophrenia, bipolar, thyroid cancer who was transferred from [facility] and admitted to the [facility] service with left tubo-ovarian abscess s/p IR drains X2(1 in the left adnexa, 1 in pelvis) on 10/23. General surgery consulted after right sided IR drain began draining feculent material with concern for iatrogenic bowel perforation secondary to the drain. She has a benign abdominal exam aside from feculent drainage from the right sided IR drain. She is on IV Zosyn with uptrending leukocytosis 24.3 (from 21.8). She has no imaging since the drains were placed on 10/23. Plan for CT abdomen/pelvis with IV contrast as well as contrast administered via both IR drains to further evaluate. Further plans pending imaging. Recommendations: - No acute surgical intervention - Recommend CT abdomen/pelvis with IV contrast and contrast via bilateral IR drains - N.p.o., maintenance IV fluids - Strict intake/output for IR drains, monitor quality -Discussed with chief resident Dr. Chisholm and attending Dr. Aponte who agree with the plan of care. Subjective Chief Complaint Concern for iatrogenic bowel injury secondary to IR drain History of Present Illness 55-year-old female with history of COPD, HTN, diabetes, schizophrenia, bipolar, thyroid cancer who is transferred from [facility] and admitted to the [facility] service with tubo-ovarian abscess s/p left adnexal and pelvic drain placement, bilateral percutaneous nephrostomy tube placement by IR 10/23. General surgery was consulted after right sided IR drain began draining feculent material, with concern for iatrogenic bowel perforation. In speaking with Yoselin, she initially presented to the OSH for abdominal pain and was transferred to for further management. She states that her pain got better after the drains were placed and is currently pain-free. She admits to fevers, but denies nausea/vomiting she has been tolerating a diet and having bowel function with gas and diarrhea. She denies any blood in her stools. She reports taking aspirin, but has been held since prior to arrival. At the time of evaluation, she is afebrile and hemodynamically stable. She has been started on Zosyn by the [facility] team. Lab work showing uptrending leukocytosis 24.3 and anemia with Hgb 7.8. She also has downtrending creatinine 1.59 (from 2.25). She has not been imaged since the drains were placed on10/23. Past surgical history: Cholecystectomy in 2010, tubal ligation Anticoagulation: ASA 81, held since prior to arrival Last colonoscopy: Never Last PO intake: 5:30 PM yesterday Review of Systems Positive for: Fevers Negative for: Nausea, vomiting, abdominal pain Past Medical History: Diagnosis Date Anemia Anxiety Bipolar disorder (HCC) COPD (chronic obstructive pulmonary disease) (HCC) Diabetes mellitus (HCC) Hyperlipidemia Obesity Sleep apnea Past Surgical History: Procedure Laterality Date ABDOMINAL SURGERY cholecystectomy GYNECOLOGICAL SURGERY tubal ligation No family history on file. Social History[1] Allergies[2] Medications Prior to Admission Medications: No current outpatient medications on file. Objective Physical Exam Vitals: 10/24/25 2200 10/24/25 2359 10/25/25 0419 10/25/25 0603 BP: 132/62 120/72 98/61 (!) 147/80 BP Location: Left arm Left arm Right arm Left arm Patient Position: Lying Lying Lying Lying Pulse: 92 93 78 75 Resp: (!) 16 16 18 Temp: (!) 100.3 ??F (37.9 ??C) 98.4 ??F (36.9 ??C) 98.2 ??F (36.8 ??C) TempSrc: Tympanic Tympanic Tympanic SpO2: 95% 95% 98% 100% Weight: Height: Intake/Output Summary (Last 24 hours) at 10/25/2025 1033 Last data filed at 10/25/2025 1019 Gross per 24 hour Intake 1746 ml Output 3741 ml Net -1995 ml GENERAL: Patient lying comfortably in bed NEURO: Alert and orientated, cooperative, responding appropriately HEENT: Atraumatic, Normocephalic CV: Regular heart rate RESP: No increased WOB GI: Soft, distended, nontender. LLQ IR drain with milky purulent output. RLQ IR drain with light brown serous and feculent output. : Bilateral nephrostomy tubes with clear pink urine EXTREMITIES: Moving all 4 extremities spontaneously SKIN: Warm, well perfused Relevant data reviewed: Labs, Notes, Meds and Radiology Recent Results (from the past 24 hours) POCT Glucose, Fingerstick Collection Time: 10/24/25 11:44 AM Specimen: Blood Result Value Ref Range POC Glucose 83 65 - 99 mg/dL POCT Glucose, Fingerstick Collection Time: 10/24/25 3:54 PM Specimen: Blood Result Value Ref Range POC Glucose 110 (H) 65 - 99 mg/dL POCT Glucose, Fingerstick Collection Time: 10/24/25 8:06 PM Specimen: Blood Result Value Ref Range POC Glucose 157 (H) 65 - 99 mg/dL POCT Glucose, Fingerstick Collection Time: 10/24/25 11:55 PM Specimen: Blood Result Value Ref Range POC Glucose 126 (H) 65 - 99 mg/dL POCT Glucose, Fingerstick Collection Time: 10/25/25 4:24 AM Specimen: Blood Result Value Ref Range POC Glucose 148 (H) 65 - 99 mg/dL Basic Metabolic Panel (Early AM) Collection Time: 10/25/25 5:46 AM Specimen: Blood Result Value Ref Range Glucose 129 (H) 65 - 99 mg/dL Blood Urea Nitrogen (BUN) 20 8 - 21 mg/dL Creatinine 1.59 (H) 0.40 - 1.10 mg/dL eGFR 39 (L) >59 Sodium 141 136 - 145 mmol/L Potassium 3.3 (L) 3.4 - 5.3 mmol/L Chloride 106 98 - 107 mmol/L CO2 22 22 - 33 mmol/L Anion Gap 13 7 - 17 Calcium 8.7 8.7 - 10.5 mg/dL BUN/Creatinine Ratio 13 10.0 - 25.0 Ratio Complete Blood Count WITHOUT Differential - Early AM Collection Time: 10/25/25 5:46 AM Specimen: Blood Result Value Ref Range White Blood Cell Count 24.3 (H) 4.0 - 11.0 Thou/uL Platelet Count 482 (H) 150 - 450 Thou/uL Hemoglobin 7.8 (L) 11.7 - 15.7 g/dL Hematocrit 24.0 (L) 35.0 - 47.0 % Red Blood Cell Count 3.06 (L) 4.00 - 5.40 Mil/uL MCV 78 (L) 80 - 100 fL MCH 25.5 (L) 27.0 - 31.0 pg MCHC 32.5 30.0 - 36.0 g/dL RDW 16.5 (H) 11.5 - 14.5 % MPV 9.7 7.5 - 12.5 fL nRBC 0.1 0.0 - 0.1 /100 WBC nRBC, Absolute 0.02 0.00 - 0.02 Thou/uL POCT Glucose, Fingerstick Collection Time: 10/25/25 8:42 AM Specimen: Blood Result Value Ref Range POC Glucose 110 (H) 65 - 99 mg/dL Imaging: CT Scan Report reviewed and Image reviewed Sign: Stanislav Mcclelland DO General Surgery, PGY-2 10/25/2025 10:33 AM [1] Social History Tobacco Use Smoking status: Never Smokeless tobacco: Never Substance Use Topics Alcohol use: Never [2] No Known Allergies Cosigned by Alfredo Aponte MD at 10/25/2025 11:21 AM EST Associated attestation - Alfredo Aponte MD - 10/25/2025 11:21 AM EST Attending attestation: I have personally seen and examined this patient. I have reviewed Stanislav Ying DO's note. I agreewith the assessment and plan as documented with the following additions/exceptions/observations: 55-year-old female with multiple medical problems including COPD hypertension diabetes schizophrenia transferred from an outside hospital with sepsis related to suspect tubo-ovarian abscess, pelvic abscess and resultant hydronephrosis. The patient has been managed nonoperatively to this point with bilateral nephrostomy tubes and IR drainage of the adnexal and pelvic abscesses. The pelvic drain character became feculent this morning prompting general surgery consult. The patient denies any current abdominal pain. At the time of our evaluation the patient is afebrile with a normal heart rate and blood pressure. Her abdomen is soft obese and nontender. Her nephrostomy tubes are functioning with urine in the bags. The right sided drain has brown-tinged fluid. The left sided drain has purulentfluid. The patient's white blood cell count is 24.3. The patient's creatinine is 1.59. In reviewingthe patient's previous CAT scans intraluminal placement of the pelvic IR drain is of significant concern. As the patient is clinically stable at this time further diagnostic evaluation to better understand the processes in her pelvis and left lower quadrant is warranted. I have concern that the underlying cause of these abscesses is not fully understood at this time. The patient will undergo statCT scan of the abdomen pelvis with IV contrast and contrast through both IR drains. The patient is tentatively on the OR schedule but we are currently holding awaiting diagnostic results. Dr Alicia from [facility] have discussed this plan in detail and are in agreement. Alfredo Aponte MD * Lexa Perez MD - 10/23/2025 5:11 PM EST Urology Consult Note Date of Consult: 10/23/2025 Assessment/Plan: Patient is a 54-year-old female presenting with sepsis in the context of tubo-ovarian abscess. Urology consulted for bilateral hydronephrosis. She had bilateral PCNs placed today. Reviewing her CT from prior to placement, it does appear that her ureter is narrow at the level of herpelvic abscess which was the likely source of her obstruction. It is unclear the extent that uroseps is is contributing to her general sepsis picture, particularly with large amount of pus drained from her abscesses. Sepsis may also be contributing to her MADELINE in addition to her obstruction. It is possible her hydronephrosis would have resolved after draining her abscesses alone. Regardless, she now has definitive drainage with bilateral percutaneous nephrostomy tubes. These should remain in place while she is acutely ill and can hopefully be removed after resolution of her pelvic pathology. This will most likely occur in the outpatient setting. -Bilateral nephrostomy tubes to gravity drainage -Appreciate ID recommendations regarding antibiotics - Follow-up urine culture - Trend creatinine - Please page urology with questions or concerns History of Present Illness: 55-year-old female with history of COPD, HTN, diabetes, schizophrenia, bipolar disorder, thyroid cancer and lung cancer presenting for sepsis for whom urology was consulted due to hydronephrosis. Patient was hospitalized for 1 week initially on 10/01 for urosepsis with a pelvic abscess which was drained by IR. She began with UTI symptoms approximately 10 days ago. She presented to an outside hospital 2 days ago for the symptoms at which point she was found to be septic with a fever and WBC c ount of 27. She required pressor support with worsening creatinine up to 3.38 with baseline of 1. CT scan at that time showed enlargement of her left adnexal collection and stable moderate hydronephrosis. Bilateral hydroureternephrosis go to the level of her pelvic collection/inflammation. She was transferred to [facility] for further care. Here, she was initiated on Zosyn and pressors were discontinued. Creatinine 3.12 today from 3.83 Yesterday. UA with greater than 25 WBCs and moderate leukocyte esterase. Seen by gynecology who recommended drainage of TOA. IR was consulted for drain placement and they placed a drain into the adnexalcollection and presacral abscess as well as bilateral nephrostomy tubes. Pus was returned from the bilateral abdominal drains. Antegrade nephrostogram's noted to have tapering of the bilateral ureters distally. Most recent WBC count 26.1. Cultures of the drain collections are pending. ID is following and currently maintaining patient on Zosyn. Past Medical History: Past Medical History: Diagnosis Date Anemia Anxiety Bipolar disorder (HCC) COPD (chronic obstructive pulmonary disease) (HCC) Diabetes mellitus (HCC) Hyperlipidemia Obesity Sleep apnea Past Surgical History: Past Surgical History: Procedure Laterality Date ABDOMINAL SURGERY cholecystectomy GYNECOLOGICAL SURGERY tubal ligation Family History: No family history on file. Social History: Social History[1] Medications: Current Medications[2] Allergies: Allergies[3] Review of Systems: Negative except as stated above. Physical Exam: BP 124/61 Pulse 99 Temp (!) (P) 101.3 ??F (38.5 ??C) (Tympanic) Resp 18 Wt 96.6 kg (212 lb 15.4 oz) SpO2 98% General appearance: No acute distress Respiratory: Breathing non-labored CVS: Regular rate Abdomen: soft, nontender 2 abdominal drains to bulb suction with purulent output Genitourinary: Bilateral percutaneous primary tubes draining faint light pink- colored urine Extremities: no edema Skin: warm, dry Labs: Recent Results (from the past 24 hours) POCT Glucose, Fingerstick Collection Time: 10/22/25 6:12 PM Specimen: Blood Result Value Ref Range POC Glucose 96 65 - 99 mg/dL Type and Screen Collection Time: 10/22/25 6:15 PM Specimen: Blood Result Value Ref Range ABO/Rh O NEGATIVE Antibody Screen NEGATIVE Specimen Expiration 10/25/2025 Blood Bank Comment Second Sample needed for Blood Transfusion Complete Blood Count, with Differential Collection Time: 10/22/25 6:18 PM Specimen: Blood Result Value Ref Range White Blood Cell Count 26.9 (H) 4.0 - 11.0 Thou/uL Platelet Count 389 150 - 450 Thou/uL Hemoglobin 7.0 (L) 11.7 - 15.7 g/dL Hematocrit 21.6 (L) 35.0 - 47.0 % Red Blood Cell Count 2.71 (L) 4.00 - 5.40 Mil/uL MCV 80 80 - 100 fL MCH 25.8 (L) 27.0 - 31.0 pg MCHC 32.4 30.0 - 36.0 g/dL RDW 16.0 (H) 11.5 - 14.5 % MPV 9.7 7.5 - 12.5 fL Bands Man 6 % Neutrophils Man 80 % Lymphocytes Man 9 % Monocytes Man 4 % Basophils Man 1 % Abs Neutrophils Count (ANC) 23.1 (H) 2.0 - 7.5 Thou/uL Abs Lymphocytes Man 2.4 1.5 - 4.5 Thou/uL Abs Monocytes Man 1.1 0.2 - 1.5 Thou/uL Abs Basophils Man 0.3 (H) 0.0 - 0.2 Thou/uL Normochromic Present Normocytic Present Comprehensive Metabolic Panel Collection Time: 10/22/25 6:18 PM Specimen: Blood Result Value Ref Range Glucose 85 65 - 99 mg/dL Blood Urea Nitrogen (BUN) 45 (H) 8 - 21 mg/dL Creatinine 3.83 (H) 0.40 - 1.10 mg/dL eGFR 13 (L) >59 Sodium 135 (L) 136 - 145 mmol/L Potassium 3.2 (L) 3.4 - 5.3 mmol/L Chloride 96 (L) 98 - 107 mmol/L CO2 20 (L) 22 - 33 mmol/L Calcium 7.8 (L) 8.7 - 10.5 mg/dL Alkaline Phosphatase 125 (H) 32 - 122 U/L Aspartate Aminotrans (AST) 56 (H) 10 - 50 U/L Alanine Aminotrans (ALT) 28 10 - 50 U/L Bilirubin, Total 0.3 0.2 - 1.0 mg/dL Protein, Total 7.2 6.3 - 8.3 g/dL Albumin 3.5 3.5 - 5.0 g/dL BUN/Creatinine Ratio 12 10.0 - 25.0 Ratio Globulin 3.7 1.5 - 3.9 g/dL Albumin/Globulin Ratio 0.9 (L) 1.0 - 3.0 Ratio Anion Gap 19 (H) 7 - 17 Lipase Collection Time: 10/22/25 6:18 PM Specimen: Blood Result Value Ref Range Lipase 32 13 - 60 U/L INR Collection Time: 10/22/25 6:18 PM Specimen: Blood Result Value Ref Range Anticoagulant OTHER AGENT OR UNKNOWN Prothrombin Time (PT) 15.0 (H) 10.0 - 13.5 seconds INR 1.3 Lactate Level X 2 Collection Time: 10/22/25 6:18 PM Specimen: Blood Result Value Ref Range Lactic Acid 0.9 0.5 - 1.9 mmol/L APTT Collection Time: 10/22/25 6:18 PM Specimen: Blood Result Value Ref Range Anticoagulant NO ANTI COAGULANT MEDS Partial Thromboplastin Time (PTT) 26 25 - 36 seconds Urinalysis with Reflex to Microscopic and Culture Collection Time: 10/22/25 6:19 PM Specimen: Straight Urinary Catheter; Urine Result Value Ref Range Color Yellow Clarity Cloudy Specific [place] 1.010 1.005 - 1.030 pH 5.0 5.0 - 8.0 Leukocyte Esterase Moderate (A) Negative Nitrite Negative Negative Protein Trace (A) Negative mg/dL Glucose Negative Negative mg/dL Ketones Negative Negative mg/dL Blood Small (A) Negative Bilirubin Negative Negative RBC 1 0 - 4 per hpf WBC >25 (H) 0 - 4 per hpf Epithelial Cells 2 per hpf Casts 17 (H) 0 - 4 per lpf Bacteria Present (A) Absent Hyaline Casts Present per lpf Sodium, Urine, Random Collection Time: 10/22/25 6:19 PM Specimen: Urine Result Value Ref Range Sodium, Urine Random 21 mmol/L Potassium, Urine, Random Collection Time: 10/22/25 6:19 PM Specimen: Urine Result Value Ref Range Potassium, Urine (Random) 22 mmol/L Chloride, Urine, Random Collection Time: 10/22/25 6:19 PM Specimen: Urine Result Value Ref Range Chloride, Urine, Random <20 mmol/L Creatinine, urine, random Collection Time: 10/22/25 6:19 PM Specimen: Urine Result Value Ref Range Creatinine, Urine, Random 88 mg/dL ABO Confirmation Collection Time: 10/22/25 6:20 PM Specimen: Blood Result Value Ref Range ABO/Rh O NEGATIVE Blood Culture Collection Time: 10/22/25 6:57 PM Specimen: Blood, Peripheral Line Blood Result Value Ref Range Culture Sterile <24 hours ECG 12 lead Collection Time: 10/22/25 7:01 PM Result Value Ref Range Ventricular rate 116 BPM Atrial rate 116 BPM P-R interval 170 ms QRS duration 90 ms Q-T interval 322 ms QTC calculation (Bazett) 448 ms P axis 64 degrees R axis -12 degrees T axis 71 degrees Blood Culture Collection Time: 10/22/25 7:18 PM Specimen: Blood, Peripheral Line Blood Result Value Ref Range Culture Sterile <24 hours Lactate Level X 2 Collection Time: 10/22/25 9:04 PM Specimen: Blood Result Value Ref Range Lactic Acid 0.7 0.5 - 1.9 mmol/L Nasal MRSA Screen, PCR Collection Time: 10/23/25 12:05 AM Specimen: Anterior Nares, bilateral; Swab, Anterior Nares Result Value Ref Range MRSA Result Not Detected Not Detected Ammonia Level Collection Time: 10/23/25 1:55 AM Specimen: Blood Result Value Ref Range Ammonia, Plasma 44 11 - 51 umol/L COMPLETE BLOOD COUNT, WITHOUT DIFFERENTIAL Collection Time: 10/23/25 1:55 AM Specimen: Blood Result Value Ref Range White Blood Cell Count 26.5 (H) 4.0 - 11.0 Thou/uL Platelet Count 390 150 - 450 Thou/uL Hemoglobin 7.4 (L) 11.7 - 15.7 g/dL Hematocrit 22.6 (L) 35.0 - 47.0 % Red Blood Cell Count 2.82 (L) 4.00 - 5.40 Mil/uL MCV 80 80 - 100 fL MCH 26.2 (L) 27.0 - 31.0 pg MCHC 32.7 30.0 - 36.0 g/dL RDW 16.1 (H) 11.5 - 14.5 % MPV 10.0 7.5 - 12.5 fL Vancomycin Level, Random Collection Time: 10/23/25 2:22 AM Specimen: Blood Result Value Ref Range Vancomycin, Random 16 mg/L Time of Last Dose Information not given FERRITIN Collection Time: 10/23/25 2:22 AM Result Value Ref Range Ferritin 1,172 (H) 30 - 400 ug/L Iron and Total Iron Binding Capacity Collection Time: 10/23/25 2:22 AM Result Value Ref Range Iron 16 (L) 59 - 151 ug/dL UIBC 110 (L) 112 - 346 ug/dL Total Iron Binding Capacity 126 100 - 400 ug/dL Iron Sat 13 (L) 20 - 50 % VITAMIN B12 Collection Time: 10/23/25 2:22 AM Result Value Ref Range Vitamin B12 477 243 - 894 pg/mL POCT Glucose, Fingerstick Collection Time: 10/23/25 2:46 AM Specimen: Blood Result Value Ref Range POC Glucose 68 65 - 99 mg/dL Complete Blood Count, with Differential Collection Time: 10/23/25 8:22 AM Specimen: Blood Result Value Ref Range White Blood Cell Count 26.1 (H) 4.0 - 11.0 Thou/uL Platelet Count 425 150 - 450 Thou/uL Hemoglobin 7.6 (L) 11.7 - 15.7 g/dL Hematocrit 23.6 (L) 35.0 - 47.0 % Red Blood Cell Count 2.92 (L) 4.00 - 5.40 Mil/uL MCV 81 80 - 100 fL MCH 26.0 (L) 27.0 - 31.0 pg MCHC 32.2 30.0 - 36.0 g/dL RDW 16.1 (H) 11.5 - 14.5 % MPV 10.0 7.5 - 12.5 fL Myelocytes 1 % Neutrophils Man 84 % Lymphocytes Man 9 % Monocytes Man 4 % Basophils Man 2 % Abs Myelocytes 0.3 (H) 0 Thou/uL Abs Neutrophils Count (ANC) 21.9 (H) 2.0 - 7.5 Thou/uL Abs Lymphocytes Man 2.4 1.5 - 4.5 Thou/uL Abs Monocytes Man 1.0 0.2 - 1.5 Thou/uL Abs Basophils Man 0.5 (H) 0.0 - 0.2 Thou/uL Normochromic Present Normocytic Present Target Cells Occasional Smear Comment See Comment Basic Metabolic Panel Collection Time: 10/23/25 8:22 AM Specimen: Blood Result Value Ref Range Glucose 94 65 - 99 mg/dL Blood Urea Nitrogen (BUN) 43 (H) 8 - 21 mg/dL Creatinine 3.12 (H) 0.40 - 1.10 mg/dL eGFR 17 (L) >59 Sodium 134 (L) 136 - 145 mmol/L Potassium 3.7 3.4 - 5.3 mmol/L Chloride 101 98 - 107 mmol/L CO2 21 (L) 22 - 33 mmol/L Anion Gap 12 7 - 17 Calcium 8.0 (L) 8.7 - 10.5 mg/dL BUN/Creatinine Ratio 14 10.0 - 25.0 Ratio Hemoglobin A1c with Estimated Average Glucose Collection Time: 10/23/25 8:22 AM Specimen: Blood Result Value Ref Range Hemoglobin A1C 9.0 (H) <5.7 % Estimated Average Glucose 212 mg/dL Magnesium Collection Time: 10/23/25 8:22 AM Result Value Ref Range Magnesium 2.1 1.6 - 2.7 mg/dL Phosphorus Collection Time: 10/23/25 8:22 AM Result Value Ref Range Phosphorus 4.5 2.7 - 4.5 mg/dL High Sensitivity Troponin T Collection Time: 10/23/25 8:22 AM Result Value Ref Range High Sensitivity Troponin T 24 (H) <15 ng/L Delta (Change) NO PREVIOUS RESULT <3 proBNP, N-terminal Collection Time: 10/23/25 8:22 AM Result Value Ref Range proBNP, N-terminal 1,039 (H) <125 pg/mL TSH, HIGHLY SENSITIVE Collection Time: 10/23/25 8:22 AM Result Value Ref Range TSH, Highly Sensitive 6.26 (H) 0.27 - 4.20 mIU/L POCT Glucose, Fingerstick Collection Time: 10/23/25 9:47 AM Specimen: Blood Result Value Ref Range POC Glucose 108 (H) 65 - 99 mg/dL POCT Glucose, Fingerstick Collection Time: 10/23/25 12:06 PM Specimen: Blood Result Value Ref Range POC Glucose 96 65 - 99 mg/dL POCT Glucose, Fingerstick Collection Time: 10/23/25 4:52 PM Specimen: Blood Result Value Ref Range POC Glucose 74 65 - 99 mg/dL Imaging: US Shake Loader Pelvis Transabdominal with US Shake Loader Transvaginal Final Result Significantly limited examination. The ovaries are not visualized secondary to overlying bowel gas and difficulty in positioning/compliance during the exam. Partial visualization of complex free intraperitoneal fluid. Ill-defined fluid collections with surrounding debris and septations as well as areas of increased vascularity within the right and left adnexal regions. Findings may represent abscesses/phlegmon. Frontal myometrial uterine fibroid measuring 4.8 cm in diameter. Interpreted by: Santiago Elena MD Weed Control Inspector I personally reviewed the images and the resident's preliminary report and AGREE with the report as it is now presented ([id number]). Image Guided Interventional CT Procedure (Results Pending) Image Guided Interventional Procedure (Results Pending) Lexa Perez MD PGY4 Urology [1] [2] Current Facility-Administered Medications: acetaminophen (TYLENOL) tablet 975 mg, 975 mg, Oral, Q6H PRN, Sisi Freitas MD, 975 mg at 10/23/25 1126 albuterol (PROVENTIL HFA; VENTOLIN HFA) inhaler 2 puff, 2 puff, Inhalation, Q4H PRN, Sisi Freitas MD ARIPiprazole (ABILIFY) tablet 20 mg, 20 mg, Oral, Daily, Sisi Freitas MD, 20 mg at 10/23/25 1100 ascorbic acid (VITAMIN C) tablet 250 mg, 250 mg, Oral, Daily, Sisi Freitas MD, 250 mg at 10/23/25 1047 [Provider Held] aspirin enteric coated (ECOTRIN LOW STRENGTH) tablet 81 mg, 81 mg, Oral, Nightly, Sisi Freitas MD atorvastatin (LIPITOR) tablet 40 mg, 40 mg, Oral, Nightly, Sisi Freitas MD baclofen (LIORESAL) tablet 10 mg, 10 mg, Oral, TID, Sisi Freitas MD, 10 mg at 10/23/25 1047 buPROPion (WELLBUTRIN XL) 24 hr tablet 300 mg, 300 mg, Oral, QAM, Sisi Freitas MD, 300 mg at 10/23/25 1046 chlorhexidine gluconate 2 % wipes - daily CHG application, , Topical, Daily, KAPIL Negro clonazePAM (KlonoPIN) tablet 1 mg, 1 mg, Oral, Q12H PRN, Sisi Freitas MD glucose (GLUTOSE 15) 40 % oral gel 37.5 g, 1 Tube, Oral, Q15 Min PRN OR glucose (GLUTOSE 15) 40% oral gel 75 g, 2 Tube, Oral, Q15 Min PRN OR dextrose 50 % solution 12.5 g, 12.5 g, Intravenous, Q15 Min PRN OR dextrose 50 % solution 25 g, 25 g, Intravenous, Q15 Min PRN OR glucagon (GLUCAGEN) injection 1 mg, 1 mg, Intramuscular, Daily PRN, Sisi Freitas MD diclofenac (VOLTAREN) 1 % gel 2 g, 2 g, Topical, 4x Daily, Sisi Freitas MD, 2 g at 10/23/25 1126 docusate sodium (COLACE) capsule 100 mg, 100 mg, Oral, BID, Sisi Freitas MD ferrous sulfate EC tablet 325 mg, 325 mg, Oral, Daily, Sisi Freitas MD, 325 mg at 10/23/25 1047 [Provider Held] gabapentin (NEURONTIN) tablet 600 mg, 600 mg, Oral, TID, Sisi Freitas MD haloperidol (HALDOL) tablet 2.5 mg, 2.5 mg, Oral, BID, Sisi Freitas MD, 2.5 mg at 10/23/25 1047 heparin (porcine) 5000 unit/mL injection 5,000 Units, 5,000 Units, Subcutaneous, Q8H [facility], Cinthya Hooker PA-C [Provider Held] hydrOXYzine HCl (ATARAX) tablet 50 mg, 50 mg, Oral, Q6H PRN, Sisi Freitas MD insulin lispro (HumaLOG/ADMELOG) 100 units/mL injection 1-5 Units, 1-5 Units, Subcutaneous, Q4H RACHEL, Sisi Freitas MD levothyroxine (SYNTHROID, LEVOTHROID) tablet 200 mcg, 200 mcg, Oral, Daily 6AM, Sisi Freitas MD, 200 mcg at 10/23/25 104 [Provider Held] lisinopril (PRINIVIL,ZeSTRIL) tablet 2.5 mg, 2.5 mg, Oral, Daily, Sisi Freitas MD [Provider Held] loratadine (CLARITIN) tablet 10 mg, 10 mg, Oral, QAM, Sisi Freitas MD montelukast (SINGULAIR) tablet 10 mg, 10 mg, Oral, Nightly, Sisi Freitas MD PANTOprazole (PROTONIX) EC tablet 40 mg, 40 mg, Oral, Daily, Sisi Freitas MD, 40 mg at 10/23/25 104 piperacillin-tazobactam (ZOSYN) 4.5 g in sodium chloride-MBP (NS) 100 mL IVPB- MBP, 4.5 g, Intravenous, Q12H, Prasanna Bro MD polyethylene glycol (miraLAx) packet 17 g, 17 g, Oral, Daily PRN, Sisi Freitas MD sucralfate (CARAFATE) tablet 1 g, 1 g, Oral, 4x daily, Sisi Freitas MD, 1 g at 10/23/25 104 [3] No Known Allergies Cosigned by Pancho Mae MD at 10/23/2025 5:57 PM EST Associated attestation - Pancho Mae MD - 10/23/2025 5:57 PM EST I did not see the patient but I agree with the above. * Bibiana Mcwilliams MD - 10/23/2025 11:50 AM ESTAssociated Order(s): IP CONSULT TO INTERVENTIONAL RADIOLOGY IR Consult Note Date of Consult: 10/23/2025 Current Attending: Mehnaz Rodriguez MD Name: Sis Valdez Age: 55 y.o. : 1970 Sex: female Assessment and Plan: Chart and imaging reviewed. Patient meets clinical indications for drain placement x 2 into pre-sacral abscess and left ovarian abscess, as well as bilateral PCN placement. In brief, this is a 55F with persistent/recurrent TOA since September s/p presacral drain placement and subsequent removal. She now has a recurrent presacral fluid collection and a persistent left ovarian fluid collection. In addition, she has persistent moderate to severe bilateral hydronephrosis, likely from pelvic inflammation resulting in bilateral ureteral obstruction. Procedure will be scheduled pending further IR RN screening and room availability. Consent: The patient is able to give consent according to the consult request. NPO required: Yes, time to be determined and communicated by the IR screening team. Modality: CT followed by IR Bibiana Mcwilliams MD 10/23/2025 11:50 AM Please direct any questions regarding guidelines to the screening nurse at ext. [phone] Please direct any questions regarding procedure time/ date to the specific imaging modality: US: 32447 CT: 63087 Fluoroscopy: 15420 IR: 19367 Meds: Medications Scheduled Medication Ordered Dose/Rate, Route, Frequency Last Action ARIPiprazole (ABILIFY) tablet 20 mg 20 mg, PO, Daily Given, 20 mg at 10/23 1100 ascorbic acid (VITAMIN C) tablet 250 mg 250 mg, PO, Daily Given, 250 mg at 10/23 1047 [Provider Held] aspirin enteric coated (ECOTRIN LOW STRENGTH) tablet 81 mg On hold since today at 0155 until manually unheld; held by Sisi Freitas MDHold Reason: Other - Comment requiredHold Comment: Unclear indication for home ASA On hold since today at 0155 until manually unheld Hold reason: Other - Comment required, Hold comment: Unclear indication for home ASA 81 mg, PO, Nightly Ordered atorvastatin (LIPITOR) tablet 40 mg 40 mg, PO, Nightly Ordered baclofen (LIORESAL) tablet 10 mg 10 mg, PO, TID Given, 10 mg at 10/23 1047 buPROPion (WELLBUTRIN XL) 24 hr tablet 300 mg 300 mg, PO, QAM Given, 300 mg at 10/23 1046 cefepime (MAXIPIME) 1 g in sodium chloride-MBP (NS) 100 mL IVPB-MBP 1 g, IV, Q24H Stopped, 10/23 0600 clindamycin (CLEOCIN) IVPB 900 mg in 50 mL D5W (premix) 900 mg, IV, Q8H Stopped, 10/23 1120 diclofenac (VOLTAREN) 1 % gel 2 g 2 g, TOP, 4x Daily Given, 2 g at 10/23 1126 docusate sodium (COLACE) capsule 100 mg 100 mg, PO, BID Ordered ferrous sulfate EC tablet 325 mg 325 mg, PO, Daily Given, 325 mg at 10/23 1047 [Provider Held] gabapentin (NEURONTIN) tablet 600 mg On hold since today at 0127 until manually unheld; held by Antoni Walker Reason: Change in vital signs On hold since today at 0127 until manually unheld Hold reason: Change in vital signs 600 mg, PO, TID Ordered haloperidol (HALDOL) tablet 2.5 mg 2.5 mg, PO, BID Given, 2.5 mg at 10/23 1047 insulin lispro (HumaLOG/ADMELOG) 100 units/mL injection 1-5 Units 1-5 Units, SC, Q4H RACHEL Ordered levothyroxine (SYNTHROID, LEVOTHROID) tablet 200 mcg 200 mcg, PO, Daily 6AM Given, 200 mcg at 10/23 1047 [Provider Held] lisinopril (PRINIVIL,ZeSTRIL) tablet 2.5 mg On hold since today at 0127 until manually unheld; held by Antoni Walker Reason: Change in vital signs On hold since today at 0127 until manually unheld Hold reason: Change in vital signs 2.5 mg, PO, Daily Ordered [Provider Held] loratadine (CLARITIN) tablet 10 mg On hold since today at 0127 until manually unheld; held by Sisi Freitas MDHold Reason: Change in vital signs On hold since today at 0127 until manually unheld Hold reason: Change in vital signs 10 mg, PO, QAM Ordered montelukast (SINGULAIR) tablet 10 mg 10 mg, PO, Nightly Ordered PANTOprazole (PROTONIX) EC tablet 40 mg 40 mg, PO, Daily Given, 40 mg at 10/23 1047 vitamin with iron and folic acid (RIGHT STEP ) tablet 1 tablet 1 tablet, PO, Daily Given, 1 tablet at 10/23 1049 sucralfate (CARAFATE) tablet 1 g 1 g, PO, 4x daily Given, 1 g at 10/23 1047 vancomycin (VANCOCIN) IV dosing PER PHARMACY PROTOCOL No Dose/Rate, Protocol, Pharmacy Protocol Orders Ordered vancomycin (VANCOCIN) 1,000 mg in sodium chloride (NS) 0.9 % 250 mL IVPB-WTD 1,000 mg, IV, Once New Bag, 1,000 mg at 10/23 1059 Continuous Medication Ordered Dose/Rate, Route, Frequency Last Action dextrose 5 % in lactated ringers (D5LR) infusion 100 mL/hr, IV, Continuous New Bag, 100 mL/hr at 10/23 0256 PRN Medication Ordered Dose/Rate, Route, Frequency Last Action acetaminophen (TYLENOL) tablet 975 mg 975 mg, PO, Q6H PRN Given, 975 mg at 10/23 1126 albuterol (PROVENTIL HFA; VENTOLIN HFA) inhaler 2 puff 2 puff, IN, Q4H PRN Ordered clonazePAM (KlonoPIN) tablet 1 mg 1 mg, PO, Q12H PRN Ordered dextrose 50 % solution 12.5 g (Or Linked Group #1) 12.5 g, IV, Q15 Min PRN Ordered dextrose 50 % solution 25 g (Or Linked Group #1) 25 g, IV, Q15 Min PRN Ordered glucagon (GLUCAGEN) injection 1 mg (Or Linked Group #1) 1 mg, IM, Daily PRN Ordered glucose (GLUTOSE 15) 40 % oral gel 37.5 g (Or Linked Group #1) 1 Tube, PO, Q15 Min PRN Ordered glucose (GLUTOSE 15) 40 % oral gel 75 g (Or Linked Group #1) 2 Tube, PO, Q15 Min PRN Ordered [Provider Held] hydrOXYzine HCl (ATARAX) tablet 50 mg On hold since today at 0127 until manually unheld; held by Sisi Freitas MDHold Reason: Change in vital signs On hold since today at 0127 until manually unheld Hold reason: Change in vital signs 50 mg, PO, Q6H PRN Ordered polyethylene glycol (miraLAx) packet 17 g 17 g, PO, Daily PRN Ordered Allergies: Allergies[1] Recent Labs: Lab Results Component Value Date PLT 425 10/23/2025 Lab Results Component Value Date INR 1.3 10/22/2025 Vitals: Vitals: 10/22/25 2215 10/23/25 0341 10/23/25 0800 10/23/25 1000 BP: (S) (!) 100/47 (!) 108/57 (!) 101/50 (!) 103/55 BP Location: Right arm Right arm Right arm Right arm Patient Position: Lying Lying Lying Lying Pulse: 99 90 94 94 Resp: 18 18 18 16 Temp: 98.8 ??F (37.1 ??C) 98.8 ??F (37.1 ??C) TempSrc: Tympanic Tympanic SpO2: 94% 96% 99% 97% Weight: 96.6 kg (212 lb 15.4 oz) [1] No Known Allergies * Jared Avery MD - 10/23/2025 8:10 AM ESTAssociated Order(s): IP CONSULT TO INFECTIOUS DISEASES ON LICENSE OF [facility] Infectious Diseases Consult Note PATIENT INFO: Patient Name: Sis Valdez Patient Gender: female (she/her/hers) PCP: Linda Murpyh DO Attending: Annika Milian MD Reason for Consult: tubo-ovarian abscess Date of Admission: 10/22/2025 LOS: 0 ID: Sis Valdez is a 55 y.o. female with a past medical history significant for T2DM, DANIEL, thyroid cancer s/p resection, lung cancer s/p resection, recurrent uterine bleeding admitted as a transfer from [facility] with acute renal failure and failed treatment for suspected tuboovarian abscess in vasopressor dependent shock. ASSESSMENT AND RECOMMENDATIONS Vasopressor Depenent Shock Tuboovarian Abscess Neutrophilic Predominant Leukocytosis Acute Renal Failure UTI Patient admitted as a transfer from [facility] with suspected intraabdominal infection complicated by vasopressor dependent shock and acute renal failure; was previously treated for intraabdominal infection at [place] 10/01-10/08 with meropenem and vanco-->amox/clav flagyl. Etiology difficult to ascertain at this point. Ddx includes recurrent TOA vs GI translocation in setting of possible mass or primary GI infection given diarrhea. -Initially febrile at [place] but afebrile since transfer to . -WBC trend 26.9-->26.1 -CT Scan from [place] with concern for expanding intraabdominal fluid collection. -Urine culture at [place] with >100,000 CFU of GNR (not yet speciated). -Bcx x4 sets on 10/22 (x2 at [facility] and x2 at [place]) with NGTD. -Currently treating with clinamycin 900mg iv over 30 min q8h, cefepime 1g iv over 3h q24h, and vancomycin iv pharm to dose RECOMMENDATIONS Antimicrobial Recommendations: Discontinue vancomycin as MRSA is less likely cause of intraabdominal infection. Would discontinue clindamycin given diarrhea and risk for C. difficile induction. Would discontinue cefepime. Would start piperacillin/tazobactam 4.5g iv over 3h q6h which will provide broad spectrum gram negative coverage and anaerobic coverage for this patient with intraabdominal infection. Would obtain MRI abdomen to further assess abdominal pathologies. Would discuss pros/cons of contrast with nephrology. Above assessment and recommendations discussed with primary team *Patient seen and examined by attending physician, Dr Muro. Please see attestation for final recommendations. SUBJECTIVE Admission 10/01-10/08: -ICU admission due to septic shock requiring vasopressors, ileus requiring NGT decompression, pelvic abscess s/p IR 10/08 with negative cultures. - Notable labs: CBC: WBC peaked 27,000; H/H 9.8/28.9, PLT 436, and ). Chem: HypoNa at 130; MADELINE with BUN/Cr trend: 24/2.25-->8.0/0.99 Gonorrhea/chlamydia negative BV panel: positive for BV GI panel: Negative MRSA nares negative Cultures: Pelvic Abscess: 4+ poly but sterile x5d. Blood cx 10/08 x2/2 sets: NGTD x5d -Initially treated with Vancomycin and Meropenem; d/c with amox/clav and Metronidazole x7d. Current Admission Patient presented to the ED at [place] again with x 5 days of weakness, fatigue, nausea, decreased appetite. Initially she presented to [facility] where she had an elevated WBC, appeared to be in acute renal failure, and had an expansion of previously visualized left adnexal fluid collection along with moderate hydronephrosis. She was started on vancomycin and Levophed prior to transfer to [facility] -Blood cultures 10[place]22 [place] [place] NGTD -Urine cultures 10/22 [place] [place] >100,000 GNR -UA 10/22 ([facility] [place] *3+ LE -C. Diff negative Upon arrival to [facility] it is noted that patient had right sided hip pain which she attributed to sciatica as well as diarrhea. Labs thus far at notable for the following: -CBC: WBC 27, hgb 7.0, plt 389 -Chem: Mild hypoNa at 135, HypoK at 3.2, HypoCl at 96, Acidosis HCO3 20 -Renal Fxn: 3.83 (BL <1.0)--> 3.12; GFR 13-->17. -LFTs: AST/ALT 56/28; AlkP 125; T bili 0.3 -UA: mod LE, >25 WBC, Bacteria -Blood cultures 10/22: NGTD -MRSA Nares negative Review of Systems Constitutional: Negative for activity change, chills and fever. HENT: Negative for sinus pressure and sinus pain. Eyes: Negative for photophobia and visual disturbance. Respiratory: Negative for chest tightness and shortness of breath. Cardiovascular: Negative for chest pain and palpitations. Gastrointestinal: Positive for abdominal distention. Negative for abdominal pain, diarrhea, nausea and vomiting. Genitourinary: Negative for dysuria and hematuria. Musculoskeletal: Negative for arthralgias and myalgias. Skin: Negative for rash and wound. Neurological: Negative for dizziness and headaches. Psychiatric/Behavioral: Negative for agitation, behavioral problems and confusion. OBJECTIVE Temp: [98.7 ??F (37.1 ??C)-99.1 ??F (37.3 ??C)] 98.8 ??F (37.1 ??C) Pulse: [90-116] 90 Resp: [18] 18 BP: (100-144)/(47-87) 108/57 Temp (24hrs), Av.9 ??F (37.2 ??C), Min:98.7 ??F (37.1 ??C), Max:99.1 ??F (37.3 ??C) Central Lines or Implanted Devices: -PIV x2 -Petty Physical Examination: General: Ill appearing. AAOx4. Pleasant and Cooperative. Appropriately interactive. HENT: Atraumatic, normocephalic. MMM Eyes: No scleral icterus. EOMI. Resp: CTAB. No wheezing, rhonchi, rales appreciated. Good air movement. Cardio: RRR, Normal S1/S2. Gastro: Distension. Soft, NT. +BS. : petty in place with clear, yellow urine. No suprapubic tenderness or CVA tenderness. Heme: No petechia, no evidence of bleeding/bruising. Skin: No rashes or lesions noted. Neuro: CN II-XII grossly intact. Moving all extremities. Psych: Appropriate mood and affect. Laboratory Results: Below laboratory results have been reviewed and pertinent findings noted in assessment above: Recent Labs 10/22/25 1818 10/23/25 0155 WBC 26.9* 26.5* HGB 7.0* 7.4* HCT 21.6* 22.6* MCV 80 80 PLT 389 390 Recent Labs 10/22/25 1818 NA 135* K 3.2* CL 96* CO2 20* BUN 45* CREAT 3.83* AST 56* ALT 28 BILITOT 0.3 ALKPHOS 125* No results for input(s): SEDRATE , CRP in the last 72 hours. Culture Data Blood Cultures -10/22 ([facility]): NGTD x2/2 sets -10/22 ([facility]): NGTD x2/2 sets Resp 10/23: MRSA nares: Neg Urine Culture -10/22 ([facility]): >100,000 GNR; speciation pending. GI -C. Diff negative ([place]) Antimicrobials Current -Cefepime: -Clindamycin: -Piperacillin/tazobactam Pertinent Radiology/Diagnostic Studies: US Shake Loader Pelvis Transabdominal with US Shake Loader Transvaginal Result Date: 10/23/2025 Significantly limited examination. The ovaries are not visualized secondary to overlying bowel gas and difficulty in positioning/compliance during the exam. Partial visualization of complex free intraperitoneal fluid. Ill-defined fluid collections with surrounding debris and septations as well as areas of increased vascularity within the right and left adnexal regions. Findings may represent abscesses/phlegmon. Frontal myometrial uterine fibroid measuring 4.8 cm in diameter. Interpreted by: Santiago Elena MD Weed Control Inspector I personally reviewed the images and the resident's preliminary report and AGREE with the report as it is now presented ([id number]). CT abdomen/pelvis w/o Contrast ([facility]) Result Date: 10/22/2025 Increasing size of presumed abscess in the cul-de-sac and gas. Increasing size of left adnexal collection including a multicystic ovary, fluid, and gas that was previously described as a probable tubo-ovarian abscess. Prior MRI stated that underlying neoplasm isnot ruled out. Right adnexal changes concerning for tubo-ovarian abscess are stable. Small loculated left pleural effusion is stable. There is increased density in the dependent portion of the right lung base that probably represents atelectasis and pleural fluid, increased since theprior. Underlying pneumonia is not ruled out. Stable small pericardial effusion. Stable moderate hydronephrosis, likely secondary to inflammatory changes in the pelvis. -- Jared Avery MD Infectious Diseases Fellow PGY 5 Available on [employer] Cosigned by Marcela Muro MD at 10/23/2025 1:28 PM EST Associated attestation - Marcela Muro MD - 10/23/2025 1:28 PM EST Teaching Attending Inpatient Attestation: I have personally interviewed and examined the patient and reviewed Dr. Avery's note. I agree with the history, exam, assessment and plan as detailed in the Resident/Fellow's note without the following additions/exceptions/observations. In brief this is a 55-year-old female with history of type 2 diabetes, DANIEL, history of thyroid cancer s/p resection history of known lung cancer status post resection who is transferred here from [facility] with chief complaint of acute renal failure, shock in the setting of recurrent tubo-ovarian abscess with bilateral hydronephrosis Of note patient was recently admitted to [facility] from 10 01-10 08 with a complex hospital course that we have reviewed in care everywhere in epic including to my note today. Patient's hospital course was complicated with shock, MADELINE, intra-abdominal infection diagnosed with first episode oftubo- ovarian abscess, patient required IR guided drainage no drain was left in, patient received broad spectrum antimicrobial therapy at that time inclusive of meropenem, culture data from IR drainage was negative, reviewed infusion to my note. She was eventually discharged amox-clav and Flagyl. She has been off treatment for 10 days. Here she has been evaluated by [facility], they do not recommend any surgical intervention recommend IR todrain the read of tubo-ovarian abscess given patient is noted to have bilateral hydronephrosis withAKI Ultrasound of the abdomen shows uterus to be normal in size limited examination, partial visualization of complex intraperitoneal fluid and increased vascularity within the right and left adnexal region concerning for abscess or phlegmon. I reviewed these images myself today. Labs independently reviewed WBC elevated 26.1, hemoglobin low at 7.6, platelet count stable at 425.Serum sodium is low at 134 serum potassium normal at 3.7, creatinine is elevated at 3.12. It is improved from admission to 3.83. Blood cultures from 10/22 in progress Active antibiotic IV clinda plus IV cefepime plus IV Vanco Active issues -Severe sepsis, meets SIRS criteria due to WBC count, temp with organ dysfunction given creatinine greater than 2 ruled in for tubo-ovarian abscess. Present on admission. - Recurrent tubo-ovarian abscess?? Cause - Bilateral hydronephrosis in the setting of recurrent tubo-ovarian abscess possible pelvic? Mass. Recommend MRI of the pelvis with contrast to rule out pelvic malignancy - Rectal thickening noted on prior CT imaging needs further evaluation and workup for rectal lignanC or pelvic malignancy - Leukocytosis - Fever - MADELINE Plan: Stop cefepime Vanco and clindamycin Allergies reviewed no evidence of penicillin reaction Recommend IV Zosyn we have started for Recommend emergent IR evaluation for decompression -Recommend PCN placement bilaterally given bilateral severe hydronephrosis -Recommend nephrology consultation for MADELINE and for approval of MRI with gadolinium contrast -We will de-escalate and microbial therapy based on culture data from IR guided aspirate I have paged attending of record Dr Rodriguez to discuss ID plan of care Total time spent today > 85 mins Sign: Marcela Muro MD 10/23/2025 1:20 PM * Kelly Pérez MD - 10/23/2025 1:29 AM ESTAssociated Order(s): IP CONSULT TO SUPERVISOR [employer]IC[employer] [facility] Consult Note Date of Consult: 10/23/2025 Service Requesting Consult: ED Reason for Consultation: TOA Assessment & Plan Assessment: 55 y.o. with PMH notable for COPD, hypertension, diabetes, papillary thyroid carcinoma and non-small cell lung cancer s/p resection with recent admission to ICU in September for presumed urosepsis incidentally found to have TOA s/p IR drainage. She was transferred from OSH after presenting with altered mental status, meeting sepsis criteria and requiring pressors found to have enlarged pelvic fluid collection now 9.2cm behind uterus on CT and was transferred to for higher level of care. - Clinical picture is unclear as patient does not have any cervical motion tenderness on exam. She also has a history of a prior BTL which also makes ascending infection seem less likely however it is reasonable to continue to presume this is a TOA at this time. - Agree with IR consult for drainage. - Patient tested negative for GC/CT and trichomonas at outside hospital but was positive for BV s/ptreatment with Flagyl. Drain culture from OSH negative and cytology negative for malignant cells. Reasonable to defer repeat testing as patient has not been sexually active since before her last admission. - TOAs are typically treated with Ceftriaxone, doxycycline and flagyl. Given complicated clinical picture, defer antibiotic regimen to primary team and ID. - Would try to get MRI images sent over if possible for review. MRI read at OSH noting thickening of rectum. Could consider colonoscopy to rule out rectal neoplasm. - Ideally TOAs are treated conservatively with source control with IR drainage and antibiotics. If patient fails to improve despite this, may need to consider source control with laparotomy though currently it is reasonable to continue with IR drainage and antibiotics. [facility] will continue to follow. Please message Gynecology on [employer] with any questions. Patient and plan discussed with Dr. Doss Signed Kelly Pérez MD [facility] OBGYN PGY-4 10/23/2025 5:31 AM (p) [phone] Subjective Chief Complaint Abdominal pain History of Present Illness 55 y.o. with PMH notable for COPD, hypertension, diabetes, papillary thyroid carcinoma and non-small cell lung cancer s/p resection with recent admission to ICU in September for presumed urosepsis and incidentally found to have TOA s/p IR drainage. Her hospital course was also complicated byileus requiring NG tube. She was treated with meropenem and Flagyl and was discharged on Augmentin and Flagyl p.o. She has continued to have suprapubic pain and was noted to have altered mental status this AM whichprompted her to present to the ED. She was found to be febrile there to 102.9 with low Bps requiring levophed and on CT imaging was noted to have enlarged pelvic fluid collection and was transferred to for higher level of care. She reports predominantly suprapubic pain , back pain and some dysuria. Has been having diarrhea. Denies nausea, vomiting. ROS Review of systems negative except as listed above in ROS and HPI. OBHx: x2 IAB x1 Shake Loader History Postmenopausal x2y, denies postmenopausal bleeding Remote history of abnormal pap, reports she had a laser done Has not seen OBGYN in many years but reports she has a visit upcoming with a provider in [place] Sexually active with Medical History - per [facility] chart History of thyroid cancer Sciatica of right side Anxiety COPD on 2L NC at baseline Incomplete right bundle branch block (RBBB) Uterine fibroid DANIEL (obstructive sleep apnea) Schizoaffective disorder Pancreatitis Type 2 diabetes mellitus JESICA positive Vitamin D deficiency Morbid obesity Sacroiliitis Multinodular goiter HLD (hyperlipidemia) GERD (gastroesophageal reflux disease) Bipolar 1 disorder Non small cell lung cancer Surgical History Thyroidectomy Cholecystectomy Bilateral tubal ligation Lobe resection Family History No family history on file. Social History Denies alcohol or drug use Remote history tobacco use Medications Current Medications[1] Allergies Allergies[2] Objective Vitals: 10/22/25191810/22/25192410/22/251951 12/12/25 1955 BP: 105/59 130/66 (!) 110/55 (!) 108/57 Pulse: (!) 112 (!) 114 (!) 110 (!) 110 Resp: Temp: SpO2: 96% 96% 95% 95% 10/22/25200010/22/25210510/22/25221410/23/25 0341 BP: 104/59 (S) (!) 115/57 (S) (!) 100/47 (!) 108/57 Pulse: (!) 110 (S) (!) 103 99 90 Resp: 18 18 18 Temp: 99.1 ??F (37.3 ??C) 98.8 ??F (37.1 ??C) 98.8 ??F (37.1 ??C) SpO2: 95% 96% 94% 96% GEN: no acute distress RESP: no increased work of breathing, 2L NC ABD: soft, moderately distended, +tympanic, nontender to palpation, no rebound tenderness or guarding BIMANUAL: no CMT, cervix closed/long/high; uterus difficult to appreciate due to habitus; No adnexal tenderness. Pelvic exam per Dr. Aguayo Labs: Recent Results (from the past 12 hours) POCT Glucose, Fingerstick Collection Time: 10/22/25 6:12 PM Specimen: Blood Result Value Ref Range POC Glucose 96 65 - 99 mg/dL Type and Screen Collection Time: 10/22/25 6:15 PM Specimen: Blood Result Value Ref Range ABO/Rh O NEGATIVE Antibody Screen NEGATIVE Specimen Expiration 10/25/2025 Blood Bank Comment Second Sample needed for Blood Transfusion Complete Blood Count, with Differential Collection Time: 10/22/25 6:18 PM Specimen: Blood Result Value Ref Range White Blood Cell Count 26.9 (H) 4.0 - 11.0 Thou/uL Platelet Count 389 150 - 450 Thou/uL Hemoglobin 7.0 (L) 11.7 - 15.7 g/dL Hematocrit 21.6 (L) 35.0 - 47.0 % Red Blood Cell Count 2.71 (L) 4.00 - 5.40 Mil/uL MCV 80 80 - 100 fL MCH 25.8 (L) 27.0 - 31.0 pg MCHC 32.4 30.0 - 36.0 g/dL RDW 16.0 (H) 11.5 - 14.5 % MPV 9.7 7.5 - 12.5 fL Bands Man 6 % Neutrophils Man 80 % Lymphocytes Man 9 % Monocytes Man 4 % Basophils Man 1 % Abs Neutrophils Count (ANC) 23.1 (H) 2.0 - 7.5 Thou/uL Abs Lymphocytes Man 2.4 1.5 - 4.5 Thou/uL Abs Monocytes Man 1.1 0.2 - 1.5 Thou/uL Abs Basophils Man 0.3 (H) 0.0 - 0.2 Thou/uL Normochromic Present Normocytic Present Comprehensive Metabolic Panel Collection Time: 10/22/25 6:18 PM Specimen: Blood Result Value Ref Range Glucose 85 65 - 99 mg/dL Blood Urea Nitrogen (BUN) 45 (H) 8 - 21 mg/dL Creatinine 3.83 (H) 0.40 - 1.10 mg/dL eGFR 13 (L) >59 Sodium 135 (L) 136 - 145 mmol/L Potassium 3.2 (L) 3.4 - 5.3 mmol/L Chloride 96 (L) 98 - 107 mmol/L CO2 20 (L) 22 - 33 mmol/L Calcium 7.8 (L) 8.7 - 10.5 mg/dL Alkaline Phosphatase 125 (H) 32 - 122 U/L Aspartate Aminotrans (AST) 56 (H) 10 - 50 U/L Alanine Aminotrans (ALT) 28 10 - 50 U/L Bilirubin, Total 0.3 0.2 - 1.0 mg/dL Protein, Total 7.2 6.3 - 8.3 g/dL Albumin 3.5 3.5 - 5.0 g/dL BUN/Creatinine Ratio 12 10.0 - 25.0 Ratio Globulin 3.7 1.5 - 3.9 g/dL Albumin/Globulin Ratio 0.9 (L) 1.0 - 3.0 Ratio Anion Gap 19 (H) 7 - 17 Lipase Collection Time: 10/22/25 6:18 PM Specimen: Blood Result Value Ref Range Lipase 32 13 - 60 U/L INR Collection Time: 10/22/25 6:18 PM Specimen: Blood Result Value Ref Range Anticoagulant OTHER AGENT OR UNKNOWN Prothrombin Time (PT) 15.0 (H) 10.0 - 13.5 seconds INR 1.3 Lactate Level X 2 Collection Time: 10/22/25 6:18 PM Specimen: Blood Result Value Ref Range Lactic Acid 0.9 0.5 - 1.9 mmol/L APTT Collection Time: 10/22/25 6:18 PM Specimen: Blood Result Value Ref Range Anticoagulant NO ANTI COAGULANT MEDS Partial Thromboplastin Time (PTT) 26 25 - 36 seconds Urinalysis with Reflex to Microscopic and Culture Collection Time: 10/22/25 6:19 PM Specimen: Straight Urinary Catheter; Urine Result Value Ref Range Color Yellow Clarity Cloudy Specific [place] 1.010 1.005 - 1.030 pH 5.0 5.0 - 8.0 Leukocyte Esterase Moderate (A) Negative Nitrite Negative Negative Protein Trace (A) Negative mg/dL Glucose Negative Negative mg/dL Ketones Negative Negative mg/dL Blood Small (A) Negative Bilirubin Negative Negative RBC 1 0 - 4 per hpf WBC >25 (H) 0 - 4 per hpf Epithelial Cells 2 per hpf Casts 17 (H) 0 - 4 per lpf Bacteria Present (A) Absent Hyaline Casts Present per lpf Sodium, Urine, Random Collection Time: 10/22/25 6:19 PM Specimen: Urine Result Value Ref Range Sodium, Urine Random 21 mmol/L Potassium, Urine, Random Collection Time: 10/22/25 6:19 PM Specimen: Urine Result Value Ref Range Potassium, Urine (Random) 22 mmol/L Chloride, Urine, Random Collection Time: 10/22/25 6:19 PM Specimen: Urine Result Value Ref Range Chloride, Urine, Random <20 mmol/L Creatinine, urine, random Collection Time: 10/22/25 6:19 PM Specimen: Urine Result Value Ref Range Creatinine, Urine, Random 88 mg/dL ABO Confirmation Collection Time: 10/22/25 6:20 PM Specimen: Blood Result Value Ref Range ABO/Rh O NEGATIVE ECG 12 lead Collection Time: 10/22/25 7:01 PM Result Value Ref Range Ventricular rate 116 BPM Atrial rate 116 BPM P-R interval 170 ms QRS duration 90 ms Q-T interval 322 ms QTC calculation (Bazett) 448 ms P axis 64 degrees R axis -12 degrees T axis 71 degrees Lactate Level X 2 Collection Time: 10/22/25 9:04 PM Specimen: Blood Result Value Ref Range Lactic Acid 0.7 0.5 - 1.9 mmol/L Nasal MRSA Screen, PCR Collection Time: 10/23/25 12:05 AM Specimen: Anterior Nares, bilateral; Swab, Anterior Nares Result Value Ref Range MRSA Result Not Detected Not Detected Ammonia Level Collection Time: 10/23/25 1:55 AM Specimen: Blood Result Value Ref Range Ammonia, Plasma 44 11 - 51 umol/L COMPLETE BLOOD COUNT, WITHOUT DIFFERENTIAL Collection Time: 10/23/25 1:55 AM Specimen: Blood Result Value Ref Range White Blood Cell Count 26.5 (H) 4.0 - 11.0 Thou/uL Platelet Count 390 150 - 450 Thou/uL Hemoglobin 7.4 (L) 11.7 - 15.7 g/dL Hematocrit 22.6 (L) 35.0 - 47.0 % Red Blood Cell Count 2.82 (L) 4.00 - 5.40 Mil/uL MCV 80 80 - 100 fL MCH 26.2 (L) 27.0 - 31.0 pg MCHC 32.7 30.0 - 36.0 g/dL RDW 16.1 (H) 11.5 - 14.5 % MPV 10.0 7.5 - 12.5 fL Vancomycin Level, Random Collection Time: 10/23/25 2:22 AM Specimen: Blood Result Value Ref Range Vancomycin, Random 16 mg/L Time of Last Dose Information not given FERRITIN Collection Time: 10/23/25 2:22 AM Result Value Ref Range Ferritin 1,172 (H) 30 - 400 ug/L Iron and Total Iron Binding Capacity Collection Time: 10/23/25 2:22 AM Result Value Ref Range Iron 16 (L) 59 - 151 ug/dL UIBC 110 (L) 112 - 346 ug/dL Total Iron Binding Capacity 126 100 - 400 ug/dL Iron Sat 13 (L) 20 - 50 % VITAMIN B12 Collection Time: 10/23/25 2:22 AM Result Value Ref Range Vitamin B12 477 243 - 894 pg/mL POCT Glucose, Fingerstick Collection Time: 10/23/25 2:46 AM Specimen: Blood Result Value Ref Range POC Glucose 68 65 - 99 mg/dL Imaging Studies: US Shake Loader Pelvis Transabdominal with US Shake Loader Transvaginal Final Result Significantly limited examination. The ovaries are not visualized secondary to overlying bowel gas and difficulty in positioning/compliance during the exam. Partial visualization of complex free intraperitoneal fluid. Ill-defined fluid collections with surrounding debris and septations as well as areas of increased vascularity within the right and left adnexal regions. Findings may represent abscesses/phlegmon. Frontal myometrial uterine fibroid measuring 4.8 cm in diameter. Interpreted by: Santiago Elena MD Weed Control Inspector I personally reviewed the images and the resident's preliminary report and AGREE with the report as it is now presented ([id number]). [1] Current Facility-Administered Medications: acetaminophen (TYLENOL) tablet 975 mg, 975 mg, Oral, Q6H PRN, Sisi Freitas MD albuterol (PROVENTIL HFA; VENTOLIN HFA) inhaler 2 puff, 2 puff, Inhalation, Q4H PRN, Sisi Freitas MD ARIPiprazole (ABILIFY) tablet 20 mg, 20 mg, Oral, Daily, Sisi Freitas MD ascorbic acid (VITAMIN C) tablet 250 mg, 250 mg, Oral, Daily, Sisi Freitas MD [Provider Held] aspirin enteric coated (ECOTRIN LOW STRENGTH) tablet 81 mg, 81 mg, Oral, Nightly, Sisi Freitas MD atorvastatin (LIPITOR) tablet 40 mg, 40 mg, Oral, Nightly, Sisi Freitas MD baclofen (LIORESAL) tablet 10 mg, 10 mg, Oral, TID, Sisi Freitas MD buPROPion (WELLBUTRIN XL) 24 hr tablet 300 mg, 300 mg, Oral, QAM, Sisi Freitas MD cefepime (MAXIPIME) 1 g in sodium chloride-MBP (NS) 100 mL IVPB-MBP, 1 g, Intravenous, Q24H, Sisi Freitas MD, Stopped at 10/23/25 0600 clindamycin (CLEOCIN) IVPB 900 mg in 50 mL D5W (premix), 900 mg, Intravenous, Q8H, Sisi Freitas MD, Stopped at 10/23/25 0326 clonazePAM (KlonoPIN) tablet 1 mg, 1 mg, Oral, Q12H PRN, Sisi Freitas MD dextrose 5 % in lactated ringers (D5LR) infusion, 100 mL/hr, Intravenous, Continuous, Sisi Freitas MD, Last Rate: 100 mL/hr at 10/23/25 0256, 100 mL/hr at 10/23/25 0256 glucose (GLUTOSE 15) 40 % oral gel 37.5 g, 1 Tube, Oral, Q15 Min PRN OR glucose (GLUTOSE 15) 40% oral gel 75 g, 2 Tube, Oral, Q15 Min PRN OR dextrose 50 % solution 12.5 g, 12.5 g, Intravenous, Q15 Min PRN OR dextrose 50 % solution 25 g, 25 g, Intravenous, Q15 Min PRN OR glucagon (GLUCAGEN) injection 1 mg, 1 mg, Intramuscular, Daily PRN, Sisi Freitas MD diclofenac (VOLTAREN) 1 % gel 2 g, 2 g, Topical, 4x Daily, Sisi Freitas MD docusate sodium (COLACE) capsule 100 mg, 100 mg, Oral, BID, Sisi Freitas MD ferrous sulfate EC tablet 325 mg, 325 mg, Oral, Daily, Sisi Freitas MD [Provider Held] gabapentin (NEURONTIN) tablet 600 mg, 600 mg, Oral, TID, Sisi Freitas MD haloperidol (HALDOL) tablet 2.5 mg, 2.5 mg, Oral, BID, Sisi Freitas MD [Provider Held] hydrOXYzine HCl (ATARAX) tablet 50 mg, 50 mg, Oral, Q6H PRN, Sisi Freitas MD insulin lispro (HumaLOG/ADMELOG) 100 units/mL injection 1-5 Units, 1-5 Units, Subcutaneous, Q4H RACHEL, Sisi Freitas MD levothyroxine (SYNTHROID, LEVOTHROID) tablet 200 mcg, 200 mcg, Oral, Daily 6AM, Sisi Freitas MD [Provider Held] lisinopril (PRINIVIL,ZeSTRIL) tablet 2.5 mg, 2.5 mg, Oral, Daily, Sisi Freitas MD [Provider Held] loratadine (CLARITIN) tablet 10 mg, 10 mg, Oral, QAM, Sisi Freitas MD montelukast (SINGULAIR) tablet 10 mg, 10 mg, Oral, Nightly, Sisi Freitas MD PANTOprazole (PROTONIX) EC tablet 40 mg, 40 mg, Oral, Daily, Sisi Freitas MD polyethylene glycol (miraLAx) packet 17 g, 17 g, Oral, Daily PRN, Sisi Freitas MD potassium chloride (KLOR-CON M20) CR tablet 40 mEq, 40 mEq, Oral, Q4H, Annika iMlian MD, 40 mEq at12 0255 vitamin with iron and folic acid (RIGHT STEP ) tablet 1 tablet, 1 tablet, Oral, Daily, Sisi Freitas MD sucralfate (CARAFATE) tablet 1 g, 1 g, Oral, 4x daily, Sisi Freitas MD vancomycin (VANCOCIN) IV dosing PER PHARMACY PROTOCOL, , Pharmacy Protocol Orders, Pharmacy Protocol Orders, Sisi Freitas MD vancomycin (VANCOCIN) 1,000 mg in sodium chloride (NS) 0.9 % 250 mL IVPB-WTD, 1,000 mg, Intravenous, Once, Annika Milian MD Current Outpatient Medications: acetaminophen (TYLENOL) 650 MG CR tablet, Take 1 tablet (650 mg total) by mouth 3 times daily (every 8 hours) as needed., Disp: , Rfl: ARIPiprazole (ABILIFY) 20 MG tablet, Take 1 tablet (20 mg total) by mouth daily., Disp: , Rfl: ascorbic acid 250 MG tablet, Take 1 tablet (250 mg total) by mouth daily., Disp: , Rfl: Aspirin Low Dose 81 MG EC tablet, Take 1 tablet (81 mg total) by mouth nightly., Disp: , Rfl: atorvastatin (LIPITOR) 40 MG tablet, Take 1 tablet (40 mg total) by mouth nightly., Disp: , Rfl: baclofen (LIORESAL) 10 MG tablet, Take 1 tablet (10 mg total) by mouth 3 (three) times a day., Disp: , Rfl: Blood Glucose Monitoring Suppl (FreeStyle [place] Lite) w/Device Kit, USE TO TEST BLOOD SUGAR TWICEDAILY AND DIRECTED, Disp: , Rfl: buPROPion (WELLBUTRIN XL) 300 MG 24 hr tablet, Take 1 tablet (300 mg total) by mouth every morning., Disp: , Rfl: clonazePAM (KlonoPIN) 1 MG tablet, Take 1 tablet (1 mg total) by mouth 2 times daily (every 12 hours) as needed for anxiety., Disp: , Rfl: diclofenac (VOLTAREN) 1 % gel, Apply topically., Disp: , Rfl: docusate sodium (COLACE) 100 MG capsule, Take 1 capsule (100 mg total) by mouth 2 (two) times a day., Disp: , Rfl: ferrous sulfate 325 (65 FE) MG EC tablet, Take 1 tablet (325 mg total) by mouth daily., Disp: , Rfl: FREESTYLE LITE strip, 1 test strip by Other (specify) route 2 times a day., Disp: , Rfl: gabapentin (NEURONTIN) 600 MG tablet, Take 1 tablet (600 mg total) by mouth 3 (three) times a day.,Disp: , Rfl: glipiZIDE (GLUCOTROL) 5 MG tablet, Take 1 tablet (5 mg total) by mouth 2 (two) times a day before meals., Disp: , Rfl: haloperidol (HALDOL) 5 MG tablet, Take 0.5 tablets (2.5 mg total) by mouth 2 (two) times a day., Disp: , Rfl: hydrOXYzine pamoate (VISTARIL) 50 MG capsule, Take 1 capsule (50 mg total) by mouth 3 (three) timesa day as needed., Disp: , Rfl: Levothyroxine Sodium 200 MCG/ML Solution, Take 200 mcg by mouth daily., Disp: , Rfl: lisinopril (PRINIVIL,ZeSTRIL) 2.5 MG tablet, Take 1 tablet (2.5 mg total) by mouth daily., Disp: , Rfl: loratadine (CLARITIN) 10 MG tablet, Take 1 tablet (10 mg total) by mouth every morning., Disp: , Rfl: metFORMIN (GLUCOPHAGE-XR) 500 MG 24 hr tablet, Take 2 tablets (1,000 mg total) by mouth 2 times a day., Disp: , Rfl: montelukast (SINGULAIR) 10 MG tablet, Take 1 tablet (10 mg total) by mouth nightly., Disp: , Rfl: ondansetron (ZOFRAN-ODT) 4 MG disintegrating tablet, Take 1 tablet (4 mg total) by mouth 3 times daily (every 8 hours) as needed for nausea or vomiting., Disp: , Rfl: PANTOprazole (PROTONIX) 20 MG tablet, Take 1 tablet (20 mg total) by mouth 2 times a day., Disp: , Rfl: phenazopyridine (PYRIDIUM) 100 MG tablet, Take 1 tablet (100 mg total) by mouth 3 (three) times a day as needed for bladder spasms., Disp: , Rfl: vitamin with iron and folic acid ( VITAMINS) 28-0.8 MG Tab tablet, Take 1 tablet by mouth daily., Disp: , Rfl: semaglutide (RYBELSUS) 7 MG PO tablet, Take 1 tablet (7 mg total) by mouth daily., Disp: , Rfl: sucralfate (CARAFATE) 1 g tablet, 1 tablet (1 g total) by Mouth/Oral Cavity route 4 (four) times a day., Disp: , Rfl: TRUEplus Lancets 33G Misc, TEST BLOOD SUGAR UP TO TWICE DAILY, Disp: , Rfl: Ventolin HFA 108 (90 Base) MCG/ACT inhaler, Inhale 2 puffs every 4 (four) hours as needed for wheezing or shortness of breath., Disp: , Rfl: [2] No Known Allergies Cosigned by Nidia Doss MD at 10/23/2025 8:44 AM EST Associated attestation - Nidia Doss MD - 10/23/2025 8:44 AM EST Teaching Physician Attestation Level of Participation I have personally interviewed and examined the patient and reviewed Dr. Pérez's note. I agree with the history, exam, assessment and plan as detailed in the resident/fellow's note with the following additions/exceptions/observations: Patient is a 55-year-old -0-1-4 who states that she was in her regular state of health until about mid September when she presented to [facility] with back pain. She was found to have questionurosepsis there, but imaging also demonstrated concern for TOA. She was admitted for antibiotics, and IR drainage of the TOA. She improved and was discharged on antibiotics, however yesterday developed confusion and re presented to the emergency department where she was found to have reaccumulationof the fluid collection, and evidence of septic shock and was transferred here. She had been transferred on pressure support, but has not required pressure support since presenting to [facility]. Imaging at from [facility] demonstrating reaccumulation and enlargement of the fluid collection, with ultrasound also demonstrating ill-defined fluid collections with surrounding debris and septations within the left and right adnexal region and complex free intraperitoneal fluid. On my exam,Susan is resting in the bed, sleeping but awoken to her name. 2L of nasal cannula in place, and some shallow breathing. Abdomen soft, nontender, no rebound or guarding. Agree with plan for IR, would strongly suggest evaluation for drainage today. I discussed with patient that should she not improve, have worsening status, surgery would be indicated for source control. BENDER MACHINE will continue to follow closely. Vitals: 10/22/25200010/22/25 2106 10/22/25 2215 10/23/25 0341 BP: 104/59 (S) (!) 115/57 (S) (!) 100/47 (!) 108/57 BP Location: Right arm Right arm Right arm Patient Position: Lying Lying Lying Pulse: (!) 110 (S) (!) 103 99 90 Resp: 18 18 18 Temp: 99.1 ??F (37.3 ??C) 98.8 ??F (37.1 ??C) 98.8 ??F (37.1 ??C) TempSrc: Tympanic Tympanic SpO2: 95% 96% 94% 96% Weight: 96.6 kg (212 lb 15.4 oz) 96.6 kg (212 lb 15.4 oz) Sign Nidia Doss MD [facility] Available on [employer] 10/23/2025 8:03 AM documented in this encounter ED Notes * Meg Sandoval RN - 10/23/2025 12:10 PM EST Patient transported to IR by IR nurse for CT guided abscess drain. Hemodynamically stable, patient reports improve in pain after receiving tylenol. Meg Sandoval RN 10/23/25 1235 * Una Escalante RN - 10/23/2025 7:07 AM EST Report given to KRYSTYNA Weaver and care transferred at this time. Una Escalante RN 10/23/25 0707 * Una Escalante RN - 10/23/2025 3:33 AM EST Pt incontinent of stool, bedding and patient changed. Plan for ongoing care. Una Escalante RN 10/23/25 0334 * Una Escalante RN - 10/23/2025 12:10 AM EST Pt returned from ultrasound, MRSA swab completed and sent to lab. Pt reports mild pain to back frombeing on stretcher. Hospital bed ordered for patient, petty draining with no issues clear yellow urine. Plan for SD eval Una Escalante RN 10/23/25 0011 * Una Escalante RN - 10/22/2025 11:07 PM EST Pt transported to ultrasound att. Una Escalante RN 10/22/25 2303 * Una Escalante RN - 10/22/2025 9:28 PM EST Pt resting comfortably on stretcher att, sleeping between care, remains tachy on tele, sating 94% on 2L nc, abx running per MAR, pt appears to be in NAD att, plan for ongoing care. Una Escalante RN 10/22/252127 * Lizbet Marie RN - 10/22/2025 8:42 PM EST Report given to KRYSTYNA Rodrigues and care transferred at this time. Lizbet Marie RN 10/22/252041 * Una Escalante RN - 10/22/2025 8:39 PM EST I have acknowledged/accepted the hand off of care for this patient. Una Escalante RN 10/22/252038 * Stanislav German MD - 10/22/2025 8:17 PM EST Emergency Critical Care Unit (ECCU) Note 55-year-old female history significant for bipolar disorder sleep apnea diabetes presenting as a transfer from [facility] with concern for septic shock on Levophed. Concern for reaccumulation of her previously drained pelvic abscess. On 10/14, from [facility] no reports of growth to date from the aspirate after IR drainage. Patient endorses pain in pelvis. ROS per HPI BP 104/59 Pulse (!) 110 Temp 98.7 ??F (37.1 ??C) (Tympanic) Resp 18 Wt 96.6 kg (212 lb 15.4oz) SpO2 95% Vital signs reviewed. General: Patient is in metabolic distress. HEENT: Normocephalic, atraumatic Cardiac: +S1/S2, no MRG, regular, tachycardia Chest: Breath sounds equal bilaterally Abdomen: Soft, nontender, nondistended, no tap, no rebound, no guarding Extremities: Equal pulses bilaterally, good cap refill, no edema Skin: Warm, well-perfused Neuro: Moves all extremities equally, sensation intact globally, speaking clearly and appropriately Working diagnosis: Septic shock, pelvic abscess Drips: crystalloid, levophed Urine output: pending Consults contacted: Shake Loader, IR Patient with workup consistent with above and will undergo comprehensive laboratory and radiological workup. Reviewed EKG Reviewed imaging and my interpretation is as follows CT: pending upload ECCU Attending Attestation I personally saw the patient and performed a substantive portion of the visit including all aspectsof the medical decision-making. I reviewed the AP's or resident's findings, supervised the management of the patient, and I agree with the treatment and plan. Further, I agree with the controlled substance prescriptions(s) and/or order(s) as written by the AP, if any. My note reflects my personal findings on my history and exam. Upon my evaluation, this patient had a high probability of imminent or life- threatening deterioration due to above which required my direct attention, intervention, and personal management. I have personally provided 30 minutes of critical care time exclusive of time spent on separately billable procedures. This does not include critical care time documented by others. Further, it does not include time I might have documented in a different note. Time includes review of laboratory data, radiology results, discussion with consultants, and monitoring for potential decompensation. Interventions were performed as documented above. Stanislav German MD 10/22/252024 * Lizbet Marie RN - 10/22/2025 7:34 PM EST Pt resting on stretcher with no complaints to offer att, NAD. Antibiotic running per jan. Equal chest rise and fall observed no complaints of SOB. Pt remains on all appropriate monitors. Plan of careon going Lizbet Marie RN 10/22/251937 * Radha Lake RN - 10/22/2025 7:22 PM EST Report given to Lizbet GREENWOOD and care transferred at this time. Radha Lake RN 10/22/251922 * Linda Myles RN - 10/22/2025 7:03 PM EST Phleb at bedside to attempt blood cx draw Linda Myles RN 10/22/251902 * Linda Myles RN - 10/22/2025 6:56 PM EST EKG at bedside Linda Myles RN 10/22/251855 * Linda Myles RN - 10/22/2025 6:54 PM EST Phleb unable to draw second set of blood cx, phleb paged x2, holding ABX, medicated per jan for neuropathy and pain Linda Myles RN 10/22/251856 * Linda Myles RN - 10/22/2025 6:39 PM EST Incontinence care provided, loose BM, linens changed, hygenic needs met, BP stable att, offering nonew complaints, safety maintained, phleb at bedside for blood cx att Linda Myles RN 10/22/25 536 * Linda Myles RN - 10/22/2025 6:12 PM EST Pt to ED from [facility], arrives to us as medical alert, intially [...] Myles RN 10/22/251814 documented in this encounter Miscellaneous Notes * Case Coordination-Payor Communication - Allie Harding - 11/05/2025 12:50 PM EST PATIENT DISCHARGED 11/05/2025 * Plan of Care - Emily Maguire RN - 11/05/2025 8:51 AM EST Problem: Adult Inpatient Plan of Care Goal: Plan of Care Review 11/05/2025 0851 by Emily Maguire RN Flowsheets Taken 11/05/2025 0851 Plan of Care Reviewed With: patient Progress: improving Taken 11/05/2025 0849 Outcome Evaluation: Patient alert and orientedx 4 on room air. Pt denies n/v ad pain. Tolerating diet well. OOB with assist of one. Ostomy intact with stool and flatus, bilateral drains and AALIYAH drains, flashed per order. Abd dressing intact. Call raza within reached. Fall and skin precaution maintained. Plan of care ongoing. Emily Maguire 11/05/2025 8:51 AM * Plan of Care - Odilia Kelly RN - 11/04/2025 8:10 PM EST Plan of Care Reviewed With: patient Progress: improving Pt a/ox4, denies pain or discomfort. Pt reports adequate pain control with current pain medication regimen. OOBx1 within hallways. Good PO intake. Tolerating diet with no n/v/d. BSS, insulin administered per scale. B/l drains and AALIYAH draining. Ostomy bag changed today and active with flatus and stool, abd changed by team. Fall/skin precaution maintained, call raza at reach and POC ongoing. Odilia Kelly 11/04/2025 8:10 PM * Plan of Care - Emily Maguire RN - 11/04/2025 8:06 AM EST Problem: Adult Inpatient Plan of Care Goal: Plan of Care Review Outcome: Progressing Flowsheets (Taken 11/04/2025 0806) Plan of Care Reviewed With: patient Progress: improving Outcome Evaluation: Patient alert and oriented on room air, denies n/v. Tolerating diet well. OOB with assist of one. Voiding spontaneously. Ostomy intact with stool and flatus, bilateral drains and AALIYAH drains intact, flashed per order. Abd dressing intact. Call raza within reached. Fall and skin precaution maintained. Plan of care ongoing. Emily Maguire 11/04/2025 8:06 AM * Plan of Care - Odilia Kelly RN - 11/03/2025 7:48 PM EST Plan of Care Reviewed With: patient Progress: improving Pt a/ox4, medicated for pain. Pt reports adequate pain control with current pain medication regimen. OOBx1 within hallways. Good PO intake. Tolerating diet with no n/v/d. BSS, insulin administered per scale. B/l drains and AALIYAH draining. Ostomy active with flatus and stool, ostomy changed today. Dressing to abd changed by team. Fall/skin precaution maintained, call raza at reach and POC ongoing. Odilia Kelly 11/03/2025 7:48 PM * Plan of Care - Lia Kirby RN - 11/03/2025 11:39 AM EST Case Management Care Plan Note Summary: Per clinical progression rounds with the bedside RN and provider, and ongoing continuing care assessment, patient is not yet clinically stable for transition. Barriers include wound packing changes, bilat PCN's, AALIYAH and IV antibiotics. Plan is for PICC placement today and delivery of IV unasyn to patients home tonight. Unfortunately, [facility] is not able to provide start of care on 11/04 - the will plan for start of care on 11/05. Pt will need to be home by noon - her spousewill transport her home. She has received some education from [facility]. Will ask bedside RN to begin education on PCN, AALIYAH and wound packing. Plan remains for discharge to home with services when medically stable. CC to continue to follow for readiness for transition. Recommendation: Home with services when medically stable. Problem: Adult Inpatient Plan of Care Goal: Readiness for Transition of Care Outcome: Progressing Lia Kirby 11/03/2025 11:39 AM * Plan of Care - Amparo Lopez RN - 11/02/2025 11:43 PM EST Patient alert oriented denied any pain/discomfort, denied any nausea/vomiting, verbalized tolerating diet, drains intact and flushed as ordered, abdominal dressing intact no active drainage observed,continues on IV antibiotic, plan of care followed as ordered per Bob Lopez 11/02/2025 11:43 PM * Plan of Care - Sada Simpson RN - 11/02/2025 6:14 PM EST Plan of Care Reviewed With: patient Progress: improving Outcome Evaluation: Resumed care at 1500. Pain managed with PRN dilaudid. Tolerating diet, denies nausea. PCNs patent, flushed per order. Ostomy active for stool and flatus. JPs intact. OOB x1 assist. F/S maintained. Plan of care updated. Sada Simpson 11/02/2025 6:14 PM * Plan of Care - Lia Kirby RN - 11/02/2025 2:49 PM EST Case Management Care Plan Note Summary: Per clinical progression rounds with the bedside RN and provider, and ongoing continuing care assessment, patient is not yet clinically stable for transition. Barriers include bid packing changes, AALIYAH, bilat PCN drains, transgluteal drain and ostomy education. Met with pt at bedside to inform her that we are having difficulty obtaining a HC agency in [facility] to work with [facility] for IV site dressing changes. Pt agreeable to additional referrals in her area and asked that I contact her sister Shaneka that works in [facility] SNF. Contacted Shaneka by phone and she referenced both [place] and [facility]'s but both have already declined her. Pt does not want to transition to SNF. She would be willing to return to [facility] if needed. Pt stated that family would be willing to assisther with daily abd dressing changes and drain care if needed. Plan remains for discharge to home with services and [facility] when medically stable. CC to continue to follow for readiness for transition. Addendum: 4pm - [facility] accepted pt for SN support. They will need W10 and D/C summary and [facility] orders faxed to them on day of d/c to [phone]. They are able to do same day start of care until 2pm if notified 24 hours in advance. Recommendation: Home with services and [facility] when medically stable. Problem: Adult Inpatient Plan of Care Goal: Readiness for Transition of Care Outcome: Progressing Lia Kirby 11/02/2025 2:49 PM * Plan of Care - Lucinda Keys RN - 11/02/2025 1:29 PM EST Outcome Evaluation: Patient is alert and oriented. Vital signs stable. Tolerating a low diber diet.Colostomy with leakage this morning, changed with complex human resources manager. Colostomy active with stool and flatus. Midline abdominal dressing changed by providers. Drains flushed per orders. Urine output from bilateral PCN drains. Fall and skin precautions maintained. Ambulated in the hallway a couple laps. Sat up in the chair. See flowsheet for further details. Lucinda Keys 11/02/2025 1:29 PM * Plan of Care - Amparo Lopez RN - 11/02/2025 1:38 AM EST Patient alert oriented reported abdominal discomfort, prn oxycodone administered with positive effect, denied any nausea/vomiting, abdominal dressing clean dry and intact, scant amount of drainage observed, drains intact patent and draining scant to small amounts, flushed as ordered continues on IVantibiotics, compliant with medication status, ambulating with staff safely, plan of care followed as ordered per Bob Lopez 11/02/2025 1:38 AM * Plan of Care - Lurcecia Patel RN - 11/01/2025 4:38 PM EST Plan of Care Reviewed With: patient Progress: improving Outcome Evaluation: Pt reports intermittent abd pain well managed with current medication regimen. Pt tolerting diet well, denies nausea. Ostomy intact no signs of leakage. Surgical team at bedside additional abd humza removed. Team at bedside, conducted dressing change. Nephrostomy tubes with adequate urine output, R tube intermittently bloody. Team aware. All drains flushed per order. Pt up in chair for meals OOBx1. Mepi changed on coccyx. Fall and skin precautions maintained. Pt missing belongings. This RN called red and green pod per their NAOMI no belongings there. Also contaced B7S and Joby 4 no belongings found. Went to central belongings one bag found with crocs, socks, sweatpants, dental appliance, dental paste and phone charge. Pts dark blue winter coat and iphone still missing. Risk connected filed. Lucrecia Patel 11/01/2025 4:38 PM * Plan of Care - Gillian Hill - 11/01/2025 1:12 PM EST [facility] Nutrition Education Note Pt seen by RD/DTR for nutrition education. See details below. Nutrition Education/Counseling: Learner: patient Readiness: acceptance Method: Handout Explanation Topics: Low Fat Low Fiber Other: Colostomy nutrition education , Oral Nutrition Supplement Use and Small Frequent Meals Response: verbalizes understanding Comprehension: Good Educational Needs Assessment: Assessed patient's learning needs. Barriers to Education: none Barriers to Learning None Identified Sign: Gillian Hill DTR 11/01/2025 1:12 PM * Plan of Care - Mare Cruz MD - 11/01/2025 12:38 PM EST [facility] Note Presented to bedside to remove humza from remainder of humza from portion of midline vertical incision inferior to umbilicus. These humza were removed and open portion of incision packed with wet to dry kerlex and two gauze sponges at the top. ABD pad to be obtained from pyxis and applied by RN. Otherwise doing well at this time. Mare Cruz MD PGY4 [facility] DRY JANITOR Resident 11/01/2025 12:42 PM (p) [phone] * Plan of Care - Dalia Gregory RN - 11/01/2025 5:09 AM EST Plan of Care Reviewed With: patient Progress: no change Outcome Evaluation: Pt alert and oriented 2L NC for sleep. Pain well managed with current regimen. Tolerating diet, denies N/V. Voiding adequately OOB. Drains intact, flushed per order, see flowsheetfor more. Bilateral PCN drains with pink tinged urine. Midline incision with humza and packing with dry dressing on bottom park of incision. Ostomy +flatus and stool. Both ostomy appliance and midline dressing/packing was changed. Mepi to bottom. Fall, skin and safety precautions maintained. Continuing with plan of care Dalia Gregory 11/01/2025 5:09 AM * Plan of Care - Stanislav Saab RN - 10/31/2025 5:32 PM EST Plan of Care Reviewed With: patient Progress: no change Outcome Evaluation: Pain controlled with oxycodone. PCN draining well. tolerating clear liquid diet. Pt went to CT this afternoon. Abd wet to dry dressing completed and ostomy bag was changed. Pt ambulated in watts several times. Stanislav Saab 10/31/2025 5:32 PM * Rehab Therapy Consults - Jeanette Butterfield, PT - 10/31/2025 2:04 PM EST Physical Therapy Initial Evaluation Current Diagnosis and Pertinent Medical History: Sis Valdez is a 55 y.o. 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 Precautions/Restrictions: fall, other (see comments) (Skin) Previous Level Of Function/Home Environment Home Environment: Living Arrangements: home People In Home: child(jolanta), adult, spouse Prior Level Of Function: Household Mobility: independent Community Mobility: independent Equipment Used at Home: none Per pt report, she was independent without a device. She lives with her and adult son and daughter in a duplex with 2 RITO and 1 FOS to bedroom. Assessment & Plan Assessment: Sis currently presents below her baseline level of function, she is usually independent without a device. She was alert and oriented x4, pleasant and cooperative throughout session. She reported 7/10 abdominal pain that improved with upright mobility. She was able to ambulate a household distance with a RW and assist of 1, no LOB or safety concerns noted. Anticipate that with frequent mobilization from nursing staff and continued therapy while admitted, pt will be safe to transition home when medically appropriate to do so with use of RW, assistance from family, and home PT services. Rehab Plan of Care: PT will follow while patient remains in-house. Patient will benefit from mobilization via nursing staff, specifically OOB to chair and ambulate with RW, to preserve current functional status. Patient will require continued skilled PT intervention to progress to requiring less assistance for all mobility. Patient currently most limited by pain and weakness. PT will follow up 2-3x/wk or as able for progression of mobility. 1. PT Recommendations for Staff: Ax1 ambulate with RW, OOB to chair for all meals 2. PT Frequency during Hospitalization: 2-3 times/wk 3. Plan of Care Reviewed With: patient Outcome Measures The Activity Measure for Post-Acute Care (AM-PAC) Basic Mobility Inpatient Short Form (6-clicks) sophia standardized measure used to quantify functional deficits in mobility. The total score of the measure ranges from 6-24. A higher score indicates a higher level of independence with functional mobility. Baseline [facility] Basic Mobility Score: 24 Current [facility] Basic Mobility Score: 18 Objective Data ROM: WFL MMT: B LE at least 3/5 Sensation: B LE intact light touch sensation Bed Mobility: Ady for supine<>sitting with handheld assist, cueing for log roll to minimize abdominal strain. Transfers: CGA for sit<>stand with B UE support on bedside. Gait/Stairs: Ady for ambulation x300' with RW, ambulated with decreased gait speed and steady gaitpattern. Multimodal cueing provided for upright posture, proper sequencing, and body position within RW. Balance: static sitting- Normal dynamic sitting- Normal static standing;- Good - with RW dynamic standing- Good - with RW Activity Tolerance: Good for eval. Patient performed all activity on room air. Pt reported improvedabdominal pain with mobility. Education: Role of PT, purpose of evaluation, POC, current presentation and discharge plan Subjective I know walking is really good for me Past Medical/Surgery History Past Medical History: Diagnosis Date Anemia Anxiety Bipolar disorder (HCC) COPD (chronic obstructive pulmonary disease) (HCC) Diabetes mellitus (HCC) Hyperlipidemia Non-small cell lung cancer (HCC) s/p resection Obesity Sleep apnea Thyroid cancer (HCC) s/p thyroidectomy Past Surgical History: Procedure Laterality Date ABDOMINAL SURGERY cholecystectomy CT ASPIRATION ABSCESS N/A 10/23/2025 Procedure: CT Abscess Drain (Retro) W/Guidance; Surgeon: Bibiana Mcwilliams MD; Location: CT; Service: Interventional Radiology; Laterality: N/A; GYNECOLOGICAL SURGERY tubal ligation LAPAROTOMY EXPLORATORY N/A 10/25/2025 Procedure: LAPAROTOMY EXPLORATORY; Surgeon: Eddie Alicia MD; Location: Main OR; Service: Gynecology; Laterality: N/A; LOBECTOMY LUNG THYROIDECTOMY WASHOUT ABDOMINAL N/A 10/25/2025 Procedure: WASHOUT ABDOMINAL; Surgeon: Eddie Alicia MD; Location: Main OR; Service: Gynecology; Laterality: N/A; drainage of pelvic abscess, splenic flexure mobilization, creation loop colostomy, colonoscopy Flowsheet Data 10/31/25 1404 Physical Therapy Time and Intention PT Visit Type initial evaluation Mode of Treatment individual therapy;physical therapy Total Minutes, Physical Therapy 15 Patient Effort excellent Symptoms Noted During/After Treatment none General Information Patient Profile Reviewed yes Onset of Illness/Injury or Date of Surgery 10/22/25 Referring Physician Attending: Ravin Patient/Family/Caregiver Comments/Observations I know walking is really good for me General Observations of Patient Pt received supine in bed, on room air, agreeable to therapy. Pertinent History of Current Functional Problem 55 y.o. 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 Existing Precautions/Restrictions fall;other (see comments) (Skin) Previous Level of Function/Home Environm Bed Mobility, Previous Functional Level independent Transfers, Previous Functional Level independent Household Ambulation, Previous Functional Level independent Stairs, Previous Functional Level independent Community Ambulation, Previous Functional Level independent Previous Level of Function Per pt report, she was independent without a device. She lives with her and adult son and daughter in a duplex with 2 RITO and 1 FOS to bedroom. Living Environment Current Living Arrangements home Home Accessibility stairs to enter home;stairs within home People in Home child(jolanta), adult;spouse Primary Care Provided by self Home Main Entrance Number of Stairs, Main Entrance two Stairs Within Home, Primary Stairs, Within Home, Primary 13 Home Use of Assistive/Adaptive Equipment Equipment Currently Used at Home none Pain Additional Documentation Pain Scale: Numbers Pre/Post-Treatment (Group) Pretreatment Pain Rating (Number Scale) 7/10 Pain Scale: Numbers, During Treatment 4/10 Posttreatment Pain Rating(Number Scale) 4/10 Pain Location abdomen Pre/Posttreatment Pain Comment (Numbers Scale) Pt reported improved abdominal pain with mobility Cognition Affect/Mental Status (Cognition) WFL Orientation Status (Cognition) oriented x 4 Cognitive Function (Cognition) WFL Safety Issues/Impairments Affecting Functional Mobility Impairments Affecting Function (Mobility) balance;endurance/activity tolerance;strength Coping Observed Emotional State calm;cooperative Verbalized Emotional State acceptance Trust Relationship/Rapport care explained;choices provided Family/Support Persons patient Involvement in Care participating in care Family/Support System Care self-care encouraged;support provided Safety Safety WDL WDL Safety Factors wheels locked;ID band on;call light in reach;bed in low position;side rails raised x3 All Alarms alarm(s) activated and audible Enhanced Safety Measures bed alarm set Progressive Mobility Progressive Mobility Level Achieved Ambulation Ambulation Distance (Feet) 300 [facility] Basic Mobility Turning from your back to your side while in a flat bed without using bedrails? 3 Moving from lying on your back to sitting on the side of a flat bed without using bedrails? 3 Moving to and from a bed to a chair (including wheelchair)? 3 Standing up from a chair using your arms? 3 To walk in a hospital room? 3 Climbing 3-5 steps with a railing? 3 [facility] Basic Mobility Score 18 Therapy Assessment/Plan (PT) Patient/Family Therapy Goals Statement (PT) To go home Functional Level at Time of Evaluation (PT) Level 5 PT Diagnosis (PT) Weakness, impaired balance and endurance Rehab Potential (PT) good Criteria for Skilled Interventions Met (PT) yes;meets criteria Therapy Frequency (PT) 2-3 times/wk PT Recommendations for Staff Ax1 ambulate with RW, OOB to chair for all meals Predicted Duration of Therapy Intervention (PT) LOS Planned Therapy Interventions (PT) balance training;bed mobility training;gait training;neuromuscular re-education;patient/family education;postural re- education;stair training;strengthening;transfertraining Problem List (PT) balance;mobility;strength;postural control;pain PT Evaluation Complexity History, PT Evaluation Complexity 3 or more personal factors and/or comorbidities Examination of Body Systems (PT Eval Complexity) total of 3 or more elements Clinical Presentation (PT Evaluation Complexity) stable Clinical Decision Making (PT Evaluation Complexity) moderate complexity Overall Complexity (PT Evaluation Complexity) moderate complexity Therapy Plan Review/Discharge Plan (PT) Therapy Plan Review (PT) evaluation/treatment results reviewed;current/potential barriers reviewed Physical Therapy Goals Bed Mobility Goal Selection (PT) bed mobility, PT goal 1 Transfer Goal Selection (PT) transfer, PT goal 1 Gait Training Goal Selection (PT) gait training, PT goal 1 Stairs Goal Selection (PT) stairs, PT goal 1 Bed Mobility Goal 1 (PT) Activity/Assistive Device (Bed Mobility Goal 1, PT) bed mobility activities, all Sanders Level/Cues Needed (Bed Mobility Goal 1, PT) independent Time Frame (Bed Mobility Goal 1, PT) 2 weeks Transfer Goal 1 (PT) Activity/Assistive Device (Transfer Goal 1, PT) transfers, all Sanders Level/Cues Needed (Transfer Goal 1, PT) independent Time Frame (Transfer Goal 1, PT) 2 weeks Gait Training Goal 1 (PT) Activity/Assistive Device (Gait Training Goal 1, PT) gait (walking locomotion) Sanders Level (Gait Training Goal 1, PT) independent Distance (Gait Training Goal 1, PT) 500+ Time Frame (Gait Training Goal 1, PT) 2 weeks Stairs Goal 1 (PT) Activity/Assistive Device (Stairs Goal 1, PT) stairs, all skills Sanders Level/Cues Needed (Stairs Goal 1, PT) modified independence Number of Stairs (Stairs Goal 1, PT) 13 Time Frame (Stairs Goal 1, PT) 2 weeks Sign: Jeanette Butterfield, PT * Plan of Care - Mare Morris RN - 10/31/2025 8:00 AM EST Plan of Care Reviewed With: patient Progress: improving Outcome Evaluation: Pt pain controlled on current pain regimen. IV ABT infusing per order. Bilateral nephrectomy tube in place with adequate amount of clear yellow urine. Bilateral IR drains in place, flushes per order. Midline incision with provider dressing change. Ambulating the halls with assist x 1. Fall and skin precaution. Mare Morris 10/31/2025 8:00 AM * Plan of Care - Lucrecia Patel RN - 10/30/2025 5:09 PM EST Plan of Care Reviewed With: patient Progress: improving Outcome Evaluation: Pt required PRN pain meds this afternoon for generalized abd pain. Pt up in chair for meals today. Tolerating diet well, denies nausea. Ostomy active with flatus and stool. Appliance changed today d/t leaking. Drains appropriately flushed per orders. Nephrostomy tubes with adequate urine output. IR drain dressings reinforced. Team contacted IR to exchange dressings. Midline humza packed by surgical team. ABD pad changed this afternoon. Fall and skin precautions maintained. Lucrecia Patel 10/30/2025 5:09 PM * Plan of Care - Ibeth Cevallos RN - 10/30/2025 4:52 AM EST Plan of Care Reviewed With: patient Progress: no change Outcome Evaluation: Patient with no acute issues overnight. Pain controlled with dilaudid 1mg IV PRN. Tolerating diet. Ostomy active with stool and flatus. Urine output adequate via bilateral PCN. Gluteal drain remains brown in color. Remaining 2 JPs serosang. All drains flushed per orders. Fall and skin precautions maintained. NSR on tele. Ibeth Cevallos 10/30/2025 4:52 AM * Plan of Care - Gem Noble RN - 10/29/2025 8:19 PM EST Plan of Care Reviewed With: patient Outcome Evaluation: client with tolerating diet and colostomy is active of stool and flatus. clientwith bilateral pcn tubes draining adequately. Midlinf incision intact with dried drainage.client mobilized to chair with two person assist. Gem Noble 10/29/2025 8:19 PM * Plan of Care - Dalia Gregory RN - 10/29/2025 3:16 AM EST Plan of Care Reviewed With: patient Progress: no change Outcome Evaluation: Pt alert and oriented to self and place on 2L NC for sleep. Pain well managed with current regimen. Tolerating diet, denies N/V. Voiding adequately OOB. Drains intact, flushed perorder, see flowsheet for more. Bilateral PCN drains with pink tinged urine. Midline incision with humza and some purulent drainage oozing between the humza on the bottom, provider notified. Ostomy +flatus and stool, intact. Mepi to bottom. Fall, skin and safety precautions maintained. Continuing with plan of care Talked to Dr. Mare Cruz at bedside regarding the peeling of the IR/surgical dressings of the drains and the lack of lasting suction for the drain with feculent output. Dalia Gregory 10/29/2025 3:16 AM * Plan of Care - Alexandre Martinez RN - 10/28/2025 3:15 PM EST Plan of Care Reviewed With: patient Outcome Evaluation: Pt A&O x3 sometimes 4. Pt SpO2 WNL on RA. Pt Petty intact, draining adequate amounts of urine. Ostomy active for flatus and stool. Pt tolerating diet, no N/V. Drains intact, BL PCN with drainage Surg. team aware. Ambulating with one assist in room and watts. Pt resting comfortably between care. See flowsheet for further information. Alexandre Martinez 10/28/2025 3:15 PM * Provider Documentation Query - Eddie Alicia MD - 10/28/2025 3:11 PM EST Request for Documentation Clarification [facility] Sis Valdez ; VISIT [id number] Query Response Sent: 10/28/25 15:10 EST From: Eddie Alicia MD Query question: Based on the clinical indicators below and your professional judgment can this diagnosis be further specified? Please complete by selecting one or all of the options below that apply. Provider response: Anemia of chronic disease (if so, please specify the chronic disease) pelvic infection Original Query Sent: 10/28/25 15:01 EST From: Claire Rojas CDIS To: Eddie Alicia MD This is a Permanent Part of the Medical Record. Note: The fact that clarification is sought does not imply that any particular answer is desired or expected. Based on your medical judgment, will you please provide clarification associated with these findings to accurately reflect all conditions that you monitored, evaluated, treated, or that may have extended the hospitalization or utilization ofadditional resources for care. Based on the clinical indicators below and your professional judgment can this diagnosis be furtherspecified? Please complete by selecting one or all of the options below that apply. * Acute blood loss anemia (please specify etiology) * Chronic blood loss anemia * Anemia of chronic disease (if so, please specify the chronic disease) * Anemia due to antineoplastic chemotherapy * Anemia due to end-stage renal disease * Anemia due to deficiency (please specify deficiency type) * Drug-induced aplastic anemia * Other type of anemia (please specify) * Other explanation of clinical findings (please specify) Clinical Information * Signs and Symptoms * Labs: 10/22/25 18:18 Hemoglobin: 7.0 (L) Hematocrit: 21.6 (L) 10/23/25 01:55 Hemoglobin: 7.4 (L) Hematocrit: 22.6 (L) 10/23/25 08:22 Hemoglobin: 7.6 (L) Hematocrit: 23.6 (L) 10/24/25 06:46 Hemoglobin: 7.5 (L) Hematocrit: 23.6 (L) 10/25/25 05:46 Hemoglobin: 7.8 (L) Hematocrit: 24.0 (L) 10/26/25 03:57 Hemoglobin: 7.6 (L) Hematocrit: 23.1 (L) 10/27/25 07:54 Hemoglobin: 6.5 (L) Hematocrit: 20.8 (L) 10/27/25 13:17 Hemoglobin: 6.4 (L) Hematocrit: 21.0 (L) 10/28/25 06:16 Hemoglobin: 7.5 (L) Hematocrit: 23.9 (L) 10/28/25 06:48 Hemoglobin: 7.1 (L) Hematocrit: 22.0 (L) (L): Data is abnormally low * Other: history of anemia * Risk Factors * Surgery: s/p Loop sigmoid colostomy creation with splenic flexure mobilization, flexible sigmoidoscopy OR 10/25/25 Estimated Blood Loss: 100 mL * Treatment * Blood transfusion: : Blood transfused as ordered, 1 unit PRBC's (10/27/2025, Alisia Escalante, CARE PLAN) * Iron supplement: : Ferrous Sulfate: 325 mg Route: PO Administered * Other: DAILY LABS * Plan of Care - Dalia Gregory RN - 10/28/2025 6:59 AM EST Plan of Care Reviewed With: patient Progress: no change Outcome Evaluation: Pt alert and oriented to self only, sometimes place on 2L NC. Pain well managedwith current regimen. Tolerating diet, denies N/V. Voiding adequately via petty. Drains intact, flushed per order, see flowsheet for more. Bilateral PCN drains with pink tinged urine. Midline incision with humza and some purulent drainage oozing between the humza on the bottom, provider notified. Ostomy +flatus and stool, changed due to leakage. Mepi to bottom. Safety prioritized with COIN, no restraints in place. Fall, skin and safety precautions maintained. Continuing with plan of care Dalia Gregory 10/28/2025 6:59 AM * Provider Documentation Query - Brandi Clifford MD - 10/27/2025 6:29 PM EST Request for Documentation Clarification [facility] Sis Valdez ; VISIT [id number] Query Response Sent: 10/27/25 18:29 EST From: Brandi Clifford MD Query question: Based on your professional medical judgement and review of the clinical indicators listed below, can an associated diagnosis be documented? Please complete by selecting one of the options below. Provider response: Metabolic encephalopathy Original Query Sent: 10/27/25 16:43 EST From: Claire Rojas CDIS To: Brandi Clifford MD This is a Permanent Part of the Medical Record. Note: The fact that clarification is sought does not imply that any particular answer is desired or expected. Based on your medical judgment, will you please provide clarification associated with these findings to accurately reflect all conditions that you monitored, evaluated, treated, or that may have extended the hospitalization or utilization ofadditional resources for care. Based on your professional medical judgement and review of the clinical indicators listed below, can an associated diagnosis be documented? Please complete by selecting one of the options below. * Metabolic encephalopathy * Toxic metabolic encephalopathy * Dementia (please specify type) * Other explanation of clinical findings (please specify) Clinical Information * Signs and Symptoms * Likely post operative in the setting of infection Recent B12 levels normal. Ammonia levels unremarkable TSH mildly elevated, continue IV levothyroxine while NPO Resume psych meds when able to tolerate PO Can use prn Haldol IV 2 mg prn for agitation Recommend discontinuing restraints. Ordered COIN for close monitoring.. * Imaging: CT head without contrast shows no acute intracranial abnormality (10/22/2025, Cinthya Hooker, PROGRESS) * Mental status: CONFUSION AFTER OR * [place] coma scale: AAO ON ADMIT * Somnolence: Patient was very sleepy and fell asleep 3 times during conversation (10/25/2025, Malu David, PROGRESS) * Risk Factors * Infection: Sepsis given fever, heart rate >90, WBC 27K with suspected urinary/abscess source * Narcotics: HYDROmorphone (DILAUDID) injection 1 mg IV Q3H PRN (10/27/2025, Jenny Sanches, PROGRESS) * Renal failure: Acute kidney injury, resolved (10/27/2025, Brandi Clifford, PROGRESS) * Other: + SEPSIS DUE TO PELVIC ABSCESS S/P OR 10/25 * Treatment * IV antibiotics: Start cefepime and clindamycin, continue with vanco (10/23/2025, Sisi Freitas, A&P Note) * Haldol: PRN Haldol IV 2 mg for agitation (10/27/2025, Brandi Clifford, PROGRESS) * Restraints: Needing restraints overnight (10/26/2025, Kelly Pérez, PROGRESS) * IV fluids: Dextrose 5% in lactated ringers, 100 mL/hr (10/23/2025, Mehnaz Rodriguez, PROGRESS) * Plan of Care - Lucinda Keys RN - 10/27/2025 5:24 PM EST Progress: no change Outcome Evaluation: Patient is alert to self, confused to time/place/situation. Denies nausea. Reported some abdominal pain this afternoon, given dilaudid as needed. Patient restless at times. 1:1 COIN at bedside for patient safety and prevention of pulling lines/tubes, patient drains flushed per orders. Petty in place with good urine output. PCN drains with output. Remains on telemetry and continuous pulse O2. Fall and skin precautions maintained. Colostomy active with stool and flatus. See flowsheet for further details. Lucinda Keys 10/27/2025 5:24 PM * Plan of Care - Alisia Escalante RN - 10/27/2025 2:55 PM EST Outcome Evaluation: P{t oriented to self only, confused through out shift. denies pain/nausea. COINat bedside, restraints taken off when COIN initiated. ostomy appliance chagned, humza OSKAR, pigtail drains intact. petty with clear yelloe urine. fall/skin maintained. VSS on room air. will continuewith plan of care. Blood transfused as ordered, 1 unit PRBC's. Alisia Escalante 10/27/2025 2:55 PM * Case Coordination-Payor Communication - Anita Atkins RN - 10/27/2025 12:11 PM EST Continued Stay Review Date: 10/27/2025 Clinical Update: Post op course complicated by altered mental status requiring restraints to prevent interference with medical care. ID and internal medicine consulted for abscess management and ams, respectively. SURGERY PLAN: - Diet: Clears - Monitor bowel function and ostomy output - Appreciate recommendations from ID, Medicine BENDER MACHINE: Continues to only be oriented to self, but otherwise answering questions appropriately and likely secondary to delirium. PLAN: Neuro: New altered mental status postoperatively. Patient only oriented to self and not following commands. Needing restraints overnight. Not tolerating PO, may need to consider swallow eval. Medications transitioned to IV. Medicine following, recommending PRN haldol MMPR with IV Tylenol and Dilaudid PRN. Holding NSAIDs due to MADELINE. Holding home abilify, buproprion, gabapentin, baclofen, haldol, synthroid CV/Pulm: COPD on 2L NC at baseline Holding home crestor, ASA, lisinopril. Heme: AM labs pending ID: Antibiotics transitioned from Zosyn to CTX/Flagyl per ID Trend WBC, most recently 37.5 yesterday, likely increased in postoperative setting GI: NPO, IVF at 100cc/h, advance to clears today per surgery Surgery following, appreciate recommendations : Petty in, bilateral PCNs in place. Strict I/Os Endocrine T2DM, FS/ISS Drains: New Juan drain placed in left adnexa abscess bed anterior to existing 10 Fr mini loop drain placedby IR on 10/23, exiting through right lower quadrant Existing 12 Fr drain placed in presacral abscess (right transgluteal) Existing 10 Fr mini loop drain in left adnexa Existing bilateral 10 Fr percutaneous nephrosotomy tubes DVT ppx: Encourage ambulation, SCDs on and in place, heparin Vitals: Date/Time Temp Pulse Resp BP SpO2 O2 Device 10/27/25 1130 97.4 (36.3) 88 18 140/68 Abnormal 99 room air (none) 10/27/25 0725 96.6 (35.9) 86 18 140/70 Abnormal 99 Supplemental Oxygen (PCT/Tech ONLY) 10/27/25 0320 97.3 (36.3) 95 20 144/74 Abnormal 99 Supplemental Oxygen (PCT/Tech ONLY) 10/27/25 0228 -- 79 -- -- 99 -- 10/27/25 0006 -- -- -- -- -- nasal cannula 10/26/25 2321 97.6 (36.4) 98 20 144/70 Abnormal 98 Supplemental Oxygen (PCT/Tech ONLY) 10/26/25 2128 98.2 (36.8) 84 20 144/78 Abnormal 98 Supplemental Oxygen (PCT/Tech ONLY) 10/26/258 97.6 (36.4) 85 20 144/74 Abnormal 98 Supplemental Oxygen (PCT/Tech ONLY) 10/26/25 2000 -- 99 15 140/70 Abnormal 98 -- Meds/Treatments: Ofirmev 1gm IV Q6H, Unasyn 3gm IV Q6H, Heparin subcutaneous, LR 100 ml/hr IV, Dilaudid 0.5mg IV, Dilaudid 1mg IV Labs/Diagnostics: Latest Reference Range & Units 10/27/25 07:54 White Blood Cell Count 4.0 - 11.0 Thou/uL 33.9 (HH) Red Blood Cell Count 4.00 - 5.40 Mil/uL 2.57 (L) Hemoglobin 11.7 - 15.7 g/dL 6.5 (L) Hematocrit 35.0 - 47.0 % 20.8 (L) MCV 80 - 100 fL 81 MCH 27.0 - 31.0 pg 25.3 (L) MCHC 30.0 - 36.0 g/dL 31.3 RDW 11.5 - 14.5 % 16.8 (H) Platelet Count 150 - 450 Thou/uL 452 (H) MPV 7.5 - 12.5 fL 10.2 nRBC 0.0 - 0.1 /100 WBC 0.1 nRBC, Absolute 0.00 - 0.02 Thou/uL 0.02 Sodium 136 - 145 mmol/L 149 (H) Potassium 3.4 - 5.3 mmol/L 3.4 Chloride 98 - 107 mmol/L 113 (H) CO2, POC 22 - 33 mmol/L 23 Anion Gap 7 - 17 13 BUN 8 - 21 mg/dL 9 Creatinine 0.40 - 1.10 mg/dL 1.26 (H) Bun / Creat Ratio 10.0 - 25.0 Ratio 7 (L) Glucose 65 - 99 mg/dL 126 (H) Calcium 8.7 - 10.5 mg/dL 8.0 (L) Magnesium 1.6 - 2.7 mg/dL 1.6 eGFR >59 51 (L) Latest Reference Range & Units 10/27/25 07:54 Phosphorus 2.7 - 4.5 mg/dL 2.4 (L) Bed Type: Med-surg D/C Plan: Routine Home anticipated, case management following Sign Anita Atkins RN 10/27/2025 12:11 PM * Plan of Care - Derrick Allan RN - 10/27/2025 7:03 AM EST Problem: Adult Inpatient Plan of Care Goal: Plan of Care Review Outcome: Progressing Flowsheets (Taken 10/27/2025 0700) Plan of Care Reviewed With: patient Progress: no change Outcome Evaluation: Patient is alert to self, disoriented to time, place and situation. Redirectionand reorientation provided with good effect. Pain controlled well with current regimen and prn IV dilaudid. No nausea reported. All drains intact and output recorded in flowsheet. Abdominal dressing is clean, dry and intact. Left nephrostomy with adeqautye output and right nephrostomy tube with minimal output. Glucose monitored. Petty patent and draining an adequate amount of urine. Ostomy activewith flatus and stool. Will continue with plan of care. * Case Coordination-Payor Communication - Naomy Katz RN - 10/26/2025 3:16 PM EST Continued Stay Review Date: 10/26/2025 Clinical Update: ASSESSMENT & RECOMMENDATIONS Assessment: 55 year old female with past medical history of hypertension, hyperlipidemia, type 2 diabetes, COPD, DANIEL, schizophrenia, bipolar disorder, history of papillary thyroid carcinoma s/p thyroidectomy, history of NSCLC s/p resection admitted for sepsis with known tubo-ovarian abscess and MADELINE with hydronephrosis. She had bilateral nephrostomy tubes and 2 abdominal/pelvic drains places on 10/23. She hadan exploratory laparotomy, abdominal washout, colostomy, and flexible sigmoidoscopy on 10/25. She developed AMS postop 10/25 for which medicine is now consulted. Recommendations: AMS Suspect post-op/hospital acquired delirium Recent TSH mildly elevated, will repeat along with T4 Recent B12, ammonia unremarkable, repeat ammonia Check vitamin D Continue holding baclofen and gabapentin for now, would use Robaxin if needed until AMS resolves Resume psych meds per below when able, can use prn IV Haldol 2 mg prn until able to take PO Can hold off on brain imaging for now Discontinue restraints as soon as able, perhaps after she is transferred out of PACU, can use COIN if needed Would ask psychiatry input if no improvement in the next day or 2 Tubo-ovarian abscess UTI Sepsis S/p pelvic and left adnexal drain placement 10/23, cultures with E. coli and strep constellatus Urine cultures from nephrostomy tubes 10/23 NTD S/p ex lap, abdominal washout, colostomy, flex sig 10/25 ID following Currently on Rocephin and Flagyl MADELINE Hydronephrosis Creatinine 4.59 on admission, baseline 1.0-1.3 Urology following S/p bilateral nephrostomy tubes 10/23 On IV fluids Creatinine continues to improve Hyperlipidemia Continue home atorvastatin 40 mg Type 2 diabetes A1c 9.0% this admission On metformin, Ozempic, and glipizide at home Glucose currently controlled on sliding scale alone Normocytic anemia Hemoglobin 7.0 on presentation B12 unremarkable Iron panel consistent with inflammation Hemoglobin has remained stable without transfusion Bipolar disorder Schizophrenia Home Buspar, Abilify, Haldol, Klonopin currently on hold while NPO Given AMS, would hold Klonopin but otherwise resume home meds when able History of papillary thyroid carcinoma S/p thyroidectomy 2020 Continue home levothyroxine 200 mcg qday, would start IV if this needs to be held due to NPO for much longer COPD/asthma History of NSCLC DANIEL S/p LLL resection 02/2025 On 2 L O2 qhs Continue home Singulair and prn albuterol GERD On PPI SUBJECTIVE Chief Complaint: AMS History of Present Illness: 55 year old female with past medical history of hypertension, hyperlipidemia, type 2 diabetes, COPD, DANIEL, schizophrenia, bipolar disorder, history of papillary thyroid carcinoma s/p thyroidectomy, history of NSCLC s/p resection admitted for sepsis with known tubo-ovarian abscess and MADELINE with hydronephrosis. Notably, she had a recent admission for sepsis secondary to UTI and had IR drainage of pelvic abscesses. She completed a course of oral antibiotics upon discharge. She represented to OSH on 10/22 with confusion and was found to have a creatinine of 3.83 and a left adnexal collection on CT with hydronephrosis. She was transferred to for further management ID and gynecology were consulted. She was continued on IV antibiotics. She had bilateral nephrostomy tubes and 2 abdominal/pelvic drains places on 10/23. Cultures grew E. coli and strep constellatus.She had an exploratory laparotomy, abdominal washout, colostomy, and flexible sigmoidoscopy on 10/25. She developed AMS postop that was initially thought to be secondary to anesthesia but persisted (though improved) through this morning. Medicine has been consulted for AMS. Vitals: 2 L via nasal cannula Vitals: 10/26/25 0400 10/26/25 0458 10/26/25 0700 10/26/25 0800 BP: 124/60 136/62 (!) 126/58 (!) 147/71 Pulse: 96 (!) 102 85 92 Resp: (!) 21 17 17 14 Temp: 98.2 ??F (36.8 ??C) SpO2: 97% 98% 98% 97% 10/26/25 0900 10/26/25 1000 10/26/25 1200 10/26/25 1400 BP: (!) 152/92 (!) 151/69 (!) 141/88 129/61 Pulse: 98 97 98 94 Resp: 14 12 12 18 Temp: SpO2: 97% 98% 98% 97% Meds/Treatments: Scheduled Medication Ordered Dose/Rate, Route, Frequency Last Action acetaminophen (OFIRMEV) injection 1,000 mg 1,000 mg, IV, Q6H Stopped, 10/26 1500 ampicillin-sulbactam (UNASYN) 3 g in sodium chloride-MBP (NS) 100 mL IVPB-MBP 3 g, IV, Q6H Ordered [Provider Held] ARIPiprazole (ABILIFY) tablet 20 mg On hold since today at 0415 until manually unheld Hold reason: NPO 20 mg, PO, Daily Given, 20 mg at 10/25 1018 [Provider Held] ascorbic acid (VITAMIN C) tablet 250 mg On hold since today at 0415 until manually unheld Hold reason: NPO 250 mg, PO, Daily Given, 250 mg at 10/25 1018 [Provider Held] aspirin enteric coated (ECOTRIN LOW STRENGTH) tablet 81 mg On hold since 10/23/2025 at 0155 until manually unheld (Needs Review) Hold reason: Other - Comment required, Hold comment: Unclear indication for home ASA 81 mg, PO, Nightly Ordered [Provider Held] atorvastatin (LIPITOR) tablet 40 mg On hold since today at 0415 until manually unheld Hold reason: NPO 40 mg, PO, Nightly Given, 40 mg at 10/24 2149 [Provider Held] baclofen (LIORESAL) tablet 10 mg On hold since today at 0415 until manually unheld Hold reason: NPO 10 mg, PO, TID Given, 10 mg at 10/25 1403 [Provider Held] buPROPion (WELLBUTRIN XL) 24 hr tablet 300 mg On hold since today at 0415 until manually unheld Hold reason: NPO 300 mg, PO, QAM Given, 300 mg at 10/25 0505 chlorhexidine gluconate 2 % wipes - daily CHG application No Dose/Rate, TOP, Daily Given, No Dose/Rate at 10/26 0952 diclofenac (VOLTAREN) 1 % gel 2 g 2 g, TOP, 4x Daily Given, 2 g at 10/24 0826 [Provider Held] docusate sodium (COLACE) capsule 100 mg On hold since today at 0415 until manually unheld Hold reason: NPO 100 mg, PO, BID Given, 100 mg at 10/25 1018 [Provider Held] ferrous sulfate EC tablet 325 mg On hold since today at 0415 until manually unheld Hold reason: NPO 325 mg, PO, Daily Given, 325 mg at 10/25 1018 [Provider Held] gabapentin (NEURONTIN) capsule 300 mg On hold since today at 0415 until manually unheld Hold reason: NPO 300 mg, PO, TID Given, 300 mg at 10/25 1417 [Provider Held] haloperidol (HALDOL) tablet 2.5 mg On hold since today at 0415 until manually unheld Hold reason: NPO 2.5 mg, PO, BID Given, 2.5 mg at 10/25 1050 heparin (porcine) 5000 unit/mL injection 5,000 Units 5,000 Units, SC, Q8H [facility] Given, 5,000 Units at 10/26 0505 insulin lispro (HumaLOG/ADMELOG) 100 units/mL injection 1-5 Units 1-5 Units, SC, Q4H RACHEL Given, 1 Units at 10/26 0521 [Provider Held] levothyroxine (SYNTHROID, LEVOTHROID) tablet 200 mcg On hold since today at 0415 until manually unheld Hold reason: NPO 200 mcg, PO, Daily 6AM Given, 200 mcg at 10/25 0504 [Provider Held] lisinopril (PRINIVIL,ZeSTRIL) tablet 2.5 mg On hold since 10/23/2025 at 0127 until manually unheld (Needs Review) Hold reason: Change in vital signs 2.5 mg, PO, Daily Ordered [Provider Held] loratadine (CLARITIN) tablet 10 mg On hold since 10/23/2025 at 0127 until manually unheld (Needs Review) Hold reason: Change in vital signs 10 mg, PO, QAM Ordered [Provider Held] montelukast (SINGULAIR) tablet 10 mg On hold since today at 0415 until manually unheld Hold reason: NPO 10 mg, PO, Nightly Given, 10 mg at 10/24 2149 [Provider Held] PANTOprazole (PROTONIX) EC tablet 40 mg On hold since today at 0415 until manually unheld Hold reason: NPO 40 mg, PO, Daily Given, 40 mg at 10/25 1018 [Provider Held] sucralfate (CARAFATE) tablet 1 g On hold since today at 0415 until manually unheld Hold reason: NPO 1 g, PO, 4x daily Given, 1 g at 10/25 1057 Continuous Medication Ordered Dose/Rate, Route, Frequency Last Action lactated ringers (LR) infusion 100 mL/hr, IV, Continuous New Bag, 100 mL/hr at 10/254 lactated ringers (LR) infusion 125 mL/hr, IV, Continuous Ordered PRN Medication Ordered Dose/Rate, Route, Frequency Last Action albuterol (PROVENTIL HFA; VENTOLIN HFA) inhaler 2 puff 2 puff, IN, Q4H PRN Ordered [Provider Held] clonazePAM (KlonoPIN) tablet 1 mg On hold since today at 0415 until manually unheld Hold reason: NPO 1 mg, PO, Q12H PRN Given, 1 mg at 10/24 2320 dextrose 50 % solution 12.5 g (Or Linked Group #1) 12.5 g, IV, Q15 Min PRN Given, 12.5 g at 10/23 1748 dextrose 50 % solution 25 g (Or Linked Group #1) 25 g, IV, Q15 Min PRN See Alternative, 10/23 1748 glucagon (GLUCAGEN) injection 1 mg (Or Linked Group #1) 1 mg, IM, Daily PRN See Alternative, 10/23 1748 glucose (GLUTOSE 15) 40 % oral gel 37.5 g (Or Linked Group #1) 1 Tube, PO, Q15 Min PRN See Alternative, 10/23 1748 glucose (GLUTOSE 15) 40 % oral gel 75 g (Or Linked Group #1) 2 Tube, PO, Q15 Min PRN See Alternative, 10/23 1748 HYDROmorphone (DILAUDID) injection 0.5 mg 0.5 mg, IV, Q3H PRN Given, 0.5 mg at 10/26 141 HYDROmorphone (DILAUDID) injection 0.8 mg 0.8 mg, IV, Q3H PRN Ordered HYDROmorphone (DILAUDID) injection 1 mg 1 mg, IV, Q3H PRN Ordered [Provider Held] hydrOXYzine HCl (ATARAX) tablet 50 mg On hold since 10/23/2025 at 0127 until manually unheld (Needs Review) Hold reason: Change in vital signs 50 mg, PO, Q6H PRN Ordered naloxone (NARCAN) 0.4 mg/mL injection 0.4 mg 0.4 mg, IV, Q5 Min PRN Ordered ondansetron (ZOFRAN) injection 4 mg 4 mg, IV, Q6H PRN Ordered [Provider Held] oxyCODONE (ROXICODONE) immediate release tablet 10 mg On hold since today at 0415 until manually unheld Hold reason: NPO 10 mg, PO, Q3H PRN Ordered [Provider Held] oxyCODONE (ROXICODONE) immediate release tablet 5 mg On hold since today at 0415 until manually unheld Hold reason: NPO 5 mg, PO, Q3H PRN Given, 5 mg at 10/26 0947 simethicone (MYLICON) chewable tablet 80 mg 80 mg, PO, Q6H PRN Ordered Labs/Diagnostics: Latest Reference Range & Units 10/26/25 03:57 White Blood Cell Count 4.0 - 11.0 Thou/uL 37.5 (HH) Red Blood Cell Count 4.00 - 5.40 Mil/uL 2.92 (L) Hemoglobin 11.7 - 15.7 g/dL 7.6 (L) Hematocrit 35.0 - 47.0 % 23.1 (L) MCV 80 - 100 fL 79 (L) MCH 27.0 - 31.0 pg 26.0 (L) RDW 11.5 - 14.5 % 16.3 (H) Platelet Count 150 - 450 Thou/uL 465 (H) Chloride 98 - 107 mmol/L 111 (H) Creatinine 0.40 - 1.10 mg/dL 1.30 (H) Glucose 65 - 99 mg/dL 171 (H) Calcium 8.7 - 10.5 mg/dL 8.4 (L) Magnesium 1.6 - 2.7 mg/dL 1.5 (L) eGFR >59 49 (L) (HH): Data is critically high (L): Data is abnormally low (H): Data is abnormally high Bed Type: Medicine General D/C Plan: Routine Home anticipated, case management following Sign Naomy Katz RN 10/26/2025 3:16 PM * Plan of Care - Shira Stark RN - 10/26/2025 11:41 AM EST Problem: Adult Inpatient Plan of Care Goal: Readiness for Transition of Care Outcome: Progressing Initial Case Management Care Plan Note Assessment completed with patient and/or patient's sales representative [employer], medical record review and discussion with clinical team. CC met with the patient using social distancing. Provided a Case Coordination packet with contact information, CC pamphlet and Your Next Step: Care Outside the Hospital brochure to the patient and/or patient sales representative [employer]. Summary: 55 year old female with past medical history of COPD (baseline 2 L nocturnal O2) and recent hospitalization in ICU for urosepsis who presented to [facility] 10/22 for altered mental status and found to have sepsis likely secondary to tubo-ovarian abscess, as well as possible urosepsis. Patient is a transfer from [facility]. Patient off unit in OR at time of assessment, assessment completed over the phone with patient's Khalida. Introduced self and case resource manager role. Sis lives with Khalida and their 27 year old son and 25 year old daughter. Fully independent in all ADLs and iADLs with 2L nocturnal O2 at baseline. Uses public transport. Receives most outpatient care at [facility] and lives [place] [address] on [place]. Denies dischargeneeds at this time, states family will be able to help with whatever she needs at discharge. DeniesSDOH concerns. Demographics confirmed and updated in Epic where appropriate. requesting surg ical/medical update: sent TT to [facility] with request. Case coordination will continue to follow for potential discharge needs. Anticipated transition plan: Home with family Caregiver/responsible person supports: Self, , adult children PCP: Confirmed: Linda Murphy DO Anticipated transportation: Family vs taxi Referrals made: None Barriers to discharge: Clinical status Expected Date of Discharge 10/28/2025 Shria Stark 10/26/2025 11:41 AM * Case Coordination-Payor Communication - Yolanda Valles - 10/26/2025 11:25 AM EST Per State [facility] General Statutes Sec: [id number]: Notification of determination communicated within 2business days of receipt of all information necessary to complete the review. Please fax authorization determination to [phone] or call [phone] * Plan of Care - Mike Palmer MD - 10/26/2025 1:00 AM EST Surgery Post Operative Check Principal Problem: Sepsis (HCC) (POA: Unknown) Active Problems: Type 2 diabetes mellitus (HCC) (POA: Yes) Schizophrenia (HCC) (POA: Yes) Postoperative hypothyroidism (POA: Yes) Obstructive sleep apnea syndrome (POA: Yes) Gastroesophageal reflux disease (POA: Yes) Hyperlipidemia (POA: Yes) Hypertension (POA: Yes) Chronic obstructive lung disease (HCC) (POA: Yes) Bipolar disorder (HCC) (POA: Yes) Tubo-ovarian abscess (POA: Unknown) Urinary tract infection (POA: Unknown) MADELINE (acute kidney injury) (POA: Unknown) Anemia (POA: Unknown) Hypocalcemia (POA: Unknown) Hypokalemia (POA: Unknown) High anion gap metabolic acidosis (POA: Unknown) Ureteral obstruction (POA: Yes) Resolved Problems: Procedures: Surgical/Procedural Cases on this Admission Case IDs Date Procedure Surgeon Location Status [id number] 10/23/25 CT Abscess Drain (Retro) W/Guidance Bibiana Mcwilliams MD CT Comp [id number] 10/23/25 IR Inject Nephrostogram New Access-Bilat W/Guidance Bibiana Mcwilliams MD IR Comp [id number] 10/25/25 WASHOUT ABDOMINAL Morganvicky Alicia MD Main OR Rachel Assessment & Plan 55 y.o. female who is now POD 0 s/p exploratory laparotomy, abdominal washout, drainage of pelvic abscesses, flexible sigmoidoscopy and loop colostomy for tubo-ovarian abscess complicated by rectal fistula. The patient is confused postoperatively and only oriented to person. Her vital signs are stable and her dressings are clean, dry and intact. Plan: Final plans pending discussion with attending surgeon and surgical team Diet: NPO, meds Fluids: LR 125 mL/h Strict intake/output for IR drains, monitor quality Appreciate care per primary team Subjective The patient is confused but able to answer questions. She denies pain, nausea, and vomiting. Per the medical record she has been incontinent of stool since surgery. Objective Last Vitals Pulse:99,Resp:14,BP:121/79,SpO2:97 %,Weight:96.6 kg (212 lb 15.4 oz) Temp Last 24 hrs: Temp Min: 97.5 ??F (36.4 ??C) Max: 98.5 ??F (36.9 ??C) I/O this shift: In: 1510 [I.V.:1510] Out: 1450 [Urine:1025; Other:325; Blood:100] Physical Exam General: No acute distress, the patient is confused. The patient is only oriented to name and not place, month, or year. Cardiac: regular rate Respiratory: no respiratory distress Abdominal: soft, nondistended, appropriately tender to palpation without rebound or guarding. Dressings are clean, dry, and intact. Right lower quadrant Juan drain has minimal serosanguineous drainage. Left lower quadrant Juan drain has a moderate amount of serosanguineous drainage. Right trans gluteal 12 [place] Island[place] drain and left adnexal 10 [place] mini loop drain in place. Bilateral nephrostomy tubes in place, the left with dusky colored urine in the right with more yellow appearing urine. Skin: no rashes Neuro: alert, awake, responding appropriately Mike Palmer MD General Surgery PGY-1 10/26/2025 3:41 AM * Plan of Care - Delphine Amezquita RN - 10/25/2025 7:59 PM EST Assumed care 0700- 1900. Pt A/O x 4. Pt able to ambulate assist x1 with rolling walker and gait belt. Sent pt. To OR for washout, not returning to CB4. Delphine Amezquita 10/25/2025 7:59 PM * Op Note - Eddie Alicia MD - 10/25/2025 4:56 PM EST Images from the original note were not included. [facility] [address] [facility] [id number] OPERATIVE REPORT Patient Name: Sis Valdez Date of : 1970 Date of Procedure: 10/25/2025 Surgeons and Role: * Eddie Alicia MD - Primary * Hai Meneses MD - Assisting * Alfredo Aponte MD - Assisting * Bharathi Amos MD - Assisting * Mare Cruz MD - Resident - Assisting Pre-op Diagnosis: Tubo-ovarian abscess [N70.93] Post-Op Diagnosis Codes: * Tubo-ovarian abscess [N70.93] * Rectal fistula [K60.40] Details of Procedure Procedure(s): Exploratory laparotomy, abdominal washout, drainage of pelvic abscess Additional Procedures: Splenic flexure mobilization, loop colostomy (Drs. Aponte and Dandre) Flexible sigmoidoscopy (Dr. Amos) Surgeon: Eddie Alicia MD Salesman/Owner: as above Anesthesia: general Indications: Tubo-ovarian abscess with inadequate source control on broad spectrum antibiotics and two pelvic drains Description of Procedure: The patient was taken to the operating room and general anesthetic was administered. She was placedin dorsal lithotomy position. Timeout was conducted. Dr. Amos (colorectal surgery) started with flexible sigmoidoscopy which was notable for a chronic pinpoint rectal fistula. Please see his separate operative note. The abdomen, vagina, and perineum were prepped and draped in the standard fashion. Petty catheter was inserted. Bimanual exam was notable for unremarkable cervix. An infraumbilical vertical midline incision was made. The layers of the abdominal wall were dissected with combination of cautery and Metzenbaum scissors until entry into the abdominal cavity. No injury was noted. On exploration, there was no overt pus or stool. The pelvis was quite frozen and inflamed. As such, the vertical midline was extended above the umbilicus to allow for adequate exposure. Bookwalter retractor system was placed. The sigmoid colon was gently dissected away from the bladder until the uterine fundus and right adnexa could be visualized. Drs. Amos and Fadi assisted with medial mobilization of the sigmoid colon until the left adnexa could be visualized. Methylene blue was backfilled through the left adnexal drain and there was spillage confirming proper positioning for source control. Given the morbid adherence of uterus & bilateral adnexa to the bladder and diffusely inflamed pelvic peritoneum, the decision was made to NOT proceed with total hysterectomy, bilateral salpingo-oophorectomy due to high likelihood of injury to ureters or vessels. The left adnexa cyst was aspirated and straw colored fluid was sent for cytology. A portion of the left adnexa abscess was also biopsied and sent to pathology. The presacral drain was also backfilled with methylene blue, but no extravasation was noted in the pelvis. On repeat flexible sigmoidoscopy by Dr. Amos, no air leak was noted but there was methylene blue noted in the rectum. Given this, the decision was made to proceed with bowel diversion in order to allow for adequate source control of her pelvic infection and minimize output through her rectal fistula. Please see Dr. Amos's separate operative note for splenic flexure mobilization and diverting loop colostomy creation & maturation. The abdomen and pelvis were irrigated. Juan drain was placed in the left adnexa abscess bed anterior to existing IR mini loop drain, exiting through ri ght lower quadrant. Drs. Amos and Fadi kindly closed the fasica with PDS running suture and matured the loop colostomy in the left abdomen. The subcutaneous tissue was irrigated and skin was closed with humza. Island dressing was placed.The loop colostomy was outfitted with pouch. Post-operative xray was obtained due to involvement ofmultiple services. This noted bilateral nephrostomy tubes, 3 surgical drains, and a sponge on ring forceps in the vagina that was used for traction during the case. The sponge on ring forceps was subs equently removed. The patient was extubated and brought to recovery in stable condition. Due to patient's frozen pelvis due to infection, there was extensive lysis of adhesions required. This required > 60 minutes of adhesiolysis which increased the length and complexity of the procedure by 50%. Complications: none Operative Findings: - Flexible sigmoidoscopy: pinpoint rectal fistula with evidence of methylene blue from backfilling through presacral drain - No overt pus or stool on abdominal entry - Frozen pelvis with sigmoid colon morbidly adherent to bladder, uterus, bilateral adnexa, cecum & appendix adherent to right adnexa - Diverting loop colostomy matured in right abdomen - Additional juan drain placed in left adnexa abscess bed, exiting in right lower quadrant Total Fluids: 2500 mL LR Drains: - Juan drain placed in left adnexa abscess bed anterior to existing 10 Fr mini loop drain placed by IR on 10/23, exiting through right lower quadrant - Existing 12 Fr drain placed in presacral abscess (right transgluteal) - Existing 10 Fr mini loop drain in left adnexa - Existing bilateral 10 Fr percutaneous nephrosotomy tubes Estimated Blood Loss: 25 mL Blood Transfusion: No Implants: * No implants in log * Specimens: ID Type Source Tests Collected by Time Destination A : left adnexal cyst fluid Body Fluid Abdominal Cavity CYTOLOGY REPORT Eddie Alicia MD 10/25/2025 6:08 PM B : left ovarian cyst wall Tissue Abdominal Cavity PATHOLOGY REPORT Eddie Alicia MD 10/25/2025 6:41 PM Disposition: awakened from anesthesia, extubated and taken to the recovery room in a stable condition, having suffered no apparent untoward event. Condition: stable Eddie Alicia MD Date: 10/25/2025 * Op Note - Bharathi Amos MD - 10/25/2025 4:56 PM EST Images from the original note were not included. [address] [id number] OPERATIVE REPORT Patient Name: Sis Valdez Date of : 1970 Date of Procedure: 10/25/2025 Surgeons and Role: * Bharathi Amos MD - Assisting Pre-op Diagnosis: Tubo-ovarian abscess [N70.93] Post-Op Diagnosis Codes: * Tubo-ovarian abscess [N70.93] * Rectal fistula [K60.40] Details of Procedure Procedure(s): Loop sigmoid colostomy creation with splenic flexure mobilization, flexible sigmoidoscopy Additional Procedures COLOSTOMY LOOP [[id number]] SIGMOIDOSCOPY FLEXIBLE [[id number]] Surgeon: Bharathi Amos MD Salesman/Owner: Alfredo Aponte, NO resident was available to assist in the complexity of this case Anesthesia: general Indications: Intraoperative consultation, history of tubo-ovarian abscess with persistent abscess following percutaneous drainage, cul-de-sac pelvic abscess now unfortunately communicating on CT imaging with the rectum, feculent drainage noted from transgluteal drain Description of Procedure: Intraoperative consultation by Dr. Eddie Alicia a midline incision had been made at this time, the Bookwalter was then placed at this point.. We decided to explore the pelvis at this time. The sigmoid and colon itself was obviously dilated and concerning for significant infection in the pelvis. There was unable to identify entry into the pelvis at this time. Given the significant pelvic infection notable. There was no obvious sign of initial infection inside the abdominalcavity. The colon itself was carefully mobilized off the left retroperitoneum, this gained entranceinto a large collection along the left pelvic sidewall and left adnexa. There was an obvious cystictype structure notable in the left adnexa and it was full at this time. We subsequently did mobilize the sigmoid colon off the uterus itself. The right pelvic sidewall was adherent and the colon was adherent to this in addition at this point. We subsequently injected the drain transgluteal in addition to the left lateral drain the left lateral drain contributed and communicated with the large cavity notable along the left pelvic sidewall and the transgluteal drain and with methylene blue unfortunately on flexible sigmoidoscopy communicated with the rectum itself. Flexible sigmoidoscope was introduced there was unable to traverse the rectosigmoid area given the significant pelvic inflammation, we subsequently withdrew from this area back and there was an obvious fistulous tract notable approximately 10 to 12 cm from the anal verge it appeared to be a chronic fistula at this point with obvious mushrooming area and there was a punctate opening that was draining purulent material. Given the constellation of findings at this point, the left adnexa was opened up by the gynecological service at this time and there was purulent material expressed from this area. Given the nature of her pelvis being frozen in addition to her partial large bowel obstruction in addition to her significant adnexal infection and this mid to upper rectal fistula and her frozen pelvis, in addition toher significant anemia and her general overall condition at this point it was not felt safe especially given her bilateral hydronephrosis and her retroperitoneum being fibrotic most likely, it was felt prudent to just proximately deferred at this time. We subsequently required mobilization of her splenic flexure to allow for appropriate colostomy creation. We retracted up the omentum superiorly and gained entrance into the lesser sac and remove the omentum off the transverse colon, this allowedus to continue in the left upper quadrant and allowed us to mobilize the splenic flexure at this time. We took all attachments on this area and this allowed us to free up the whole splenic flexure off the retroperitoneum. This allowed us to then expose and have a better understanding of the descending colon. It was edematous and obviously dilated at this time. At this point, we chose a position in the left side of her abdomen infraumbilical we subsequently made a circular incision in this area d issection was taken down to the fascia the fascia was then incised in a cruciate manner and the loop descending colostomy was brought through this aperture at this time. A bridge was placed underlying this, the abdomen was then closed with a #1 PDS x 2 in a running fashion the wound was irrigated and closed with humza we subsequently brooked the loop colostomy in a standard fashion with a 3-0 Vicryl sutures. The stoma itself was pink and patent. Complications: none Operative Findings: Frozen pelvis, flexible sigmoidoscopy showed mid to upper rectal fistula notable seems chronic in nature, transgluteal drain did communicate with methylene blue to her rectum Estimated Blood Loss: 100 mL Blood Transfusion: No Implants: * No implants in log * Specimens: ID Type Source Tests Collected by Time Destination A : left adnexal cyst fluid Body Fluid Abdominal Cavity CYTOLOGY REPORT Eddie Alicia MD 10/25/2025 6:08 PM B : left ovarian cyst wall Tissue Abdominal Cavity PATHOLOGY REPORT Eddie Alicia MD 10/25/2025 6:41 PM Disposition: awakened from anesthesia, extubated and taken to the recovery room in a stable condition, having suffered no apparent untoward event. Condition: good Bharathi Amos MD Date: 10/26/2025 Cc: Linda Murphy DO * Plan of Care - Eddie Alicia MD - 10/25/2025 3:00 PM EST Reviewed her treatment course for recurrent tuboovarian abscess including broad spectrum antibiotics and drain placement. Discussed concern for inadequate source control as well as bowel involvement given feculent output through presacral drain this morning. Follow up CT notable for drain in rectum. As such, after discussion with general surgery (Dr. Aponte) and colorectal surgery (Dr. Amos),recommend proceeding to OR for adequate source control and evaluation of rectum. With her sister Montse on the phone, patient consented for exploratory laparotomy, washout, possible total abdominal hysterectomy bilateral salpingo- oophorectomy (low likelihood), possible bowel resection, possible ostomy (diverting loop ileostomy, diverting loop colostomy, end colostomy), flexible sigmoidoscopy. Risks/benefits/alternatives reviewed. Consent signed. Will proceed to OR this afternoon. Eddie Alicia MD * Assessment & Plan Note - Ama Swenson MD - 10/25/2025 2:37 PM EST Associated Problem(s): Sepsis (HCC) She is status post IR drainage and placement of left adnexal and presacral space drains on 10/23/2025. 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 * Assessment & Plan Note - Ama Swenson MD - 10/25/2025 2:37 PM EST Associated Problem(s): Tubo-ovarian abscess She is status post IR drainage and placement of left adnexal and presacral space drains on 10/23/2025. 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 * Assessment & Plan Note - Ama Swenson MD - 10/25/2025 2:37 PM EST Associated Problem(s): Urinary tract infection She is status post IR drainage and placement of left adnexal and presacral space drains on 10/23/2025. 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 * Assessment & Plan Note - Ama Swenson MD - 10/25/2025 2:21 PM EST Associated Problem(s): MADELINE (acute kidney injury) She is status post bilateral nephrostomy tube placement on 10/23/2025. - Urology following * Assessment & Plan Note - Ama Swenson MD - 10/25/2025 2:21 PM EST Associated Problem(s): Ureteral obstruction She is status post bilateral nephrostomy tube placement on 10/23/2025. - Urology following * Assessment & Plan Note - Ama Swenson MD - 10/25/2025 2:21 PM EST Associated Problem(s): Schizophrenia (HCC) - Resume gabapentin renally dose 300 mg 3 times daily - Continue Klonopin 1 mg twice daily as needed for anxiety - Continue home Abilify 20 mg daily, Wellbutrin 300 mg daily, Haldol 2.5 mg daily, baclofen 10 mg 3times daily * Assessment & Plan Note - Ama Swenson MD - 10/25/2025 2:21 PM EST Associated Problem(s): Bipolar disorder (HCC) - Resume gabapentin renally dose 300 mg 3 times daily - Continue Klonopin 1 mg twice daily as needed for anxiety - Continue home Abilify 20 mg daily, Wellbutrin 300 mg daily, Haldol 2.5 mg daily, baclofen 10 mg 3times daily * Assessment & Plan Note - Ama Swenson MD - 10/25/2025 2:21 PM EST Associated Problem(s): Obstructive sleep apnea syndrome On NC 2L at baseline. * Assessment & Plan Note - Ama Swenson MD - 10/25/2025 2:21 PM EST Associated Problem(s): Chronic obstructive lung disease (HCC) On NC 2L at baseline. * Assessment & Plan Note - Ama Swenson MD - 10/25/2025 2:21 PM EST Associated Problem(s): Hyperlipidemia Has been normotensive and euglycemic. - Continue Lipitor 40 mg daily - Holding lisinopril 2.5 mg daily given MADELINE - Holding aspirin 81 mg nightly - POCT ACHS - Sliding scale * Assessment & Plan Note - Ama Swenson MD - 10/25/2025 2:21 PM EST Associated Problem(s): Hypertension Has been normotensive and euglycemic. - Continue Lipitor 40 mg daily - Holding lisinopril 2.5 mg daily given MADELINE - Holding aspirin 81 mg nightly - POCT ACHS - Sliding scale * Assessment & Plan Note - Ama Swenson MD - 10/25/2025 2:21 PM EST Associated Problem(s): Type 2 diabetes mellitus (HCC) Has been normotensive and euglycemic. - Continue Lipitor 40 mg daily - Holding lisinopril 2.5 mg daily given MADELINE - Holding aspirin 81 mg nightly - POCT ACHS - Sliding scale * Case Coordination-Payor Communication - Sada Melgar RN - 10/25/2025 12:06 PM EST Continued Stay Review Date: 10/25/2025 Clinical Update: Sis Valdez is a 55 y.o. female HTN, HLD, T2DM, DANIEL, COPD (2 L NC at night), schizophrenia, bipolar disorder, papillary thyroid carcinoma s/p thyroidectomy, NSCLC s/p LLL resection (02/2025), abnormal uterine bleeding, and recent hospitalization in ICU for urosepsis and TOA whopresented to [place] 10/22 for AMS and found to have sepsis likely secondary to re-accumulation of t ubo-ovarian abscess, as well as possible urosepsis. Transferred to and admitted to medical SD. She is now status post bilateral PCN placement, tubo- ovarian abscess drainage. Surgery consulted, recommendations in place: Assessment & Plan Assessment 55 y.o. female with history of COPD, HTN, diabetes, schizophrenia, bipolar, thyroid cancer who was transferred from [facility] and admitted to the [facility] service with left tubo-ovarian abscess s/p IR drains X2(1 in the left adnexa, 1 in pelvis) on 10/23. General surgery consulted after right sided IR drain began draining feculent material with concern for iatrogenic bowel perforation secondary to the drain. She has a benign abdominal exam aside from feculent drainage from the right sided IR drain. She is on IV Zosyn with uptrending leukocytosis 24.3 (from 21.8). She has no imaging since the drains were placed on 10/23. Plan for CT abdomen/pelvis with IV contrast as well as contrast administered via both IR drains to further evaluate. Further plans pending imaging. Recommendations: - No acute surgical intervention - Recommend CT abdomen/pelvis with IV contrast and contrast via bilateral IR drains - N.p.o., maintenance IV fluids - Strict intake/output for IR drains, monitor quality Gynecology following, recommendations in place: Assessment & Plan 55 y.o. patient with T2DM, thyroid cancer s/p resection, non-small cell lung cancer status post resection with COPD/DANIEL, hypothyroidism, hypertension admitted as a transfer from an outside hospital with concern for leukocytosis worsening of known Flagyl pelvic mass concerning for tubo-ovarian abscess now POD#2 from IR drain placement in the left adnexa and presacral medicine space. Clinically, patient has improvement in leukocytosis and remains afebrile with benign abdominal exam. On review of microbiology drain output at the outside hospital negative for malignancy and sterile after culture. Blood cultures remained sterile over the past 2 days. Concern for drain malpositioning versus enteric etiology of pre- sacral collection given repeat sacral drain sent for both cytology and microbiology and currently growing preliminary E. Coli with feculent drain output. RN team contacted to enter in drain outputs. - Agree with treatment of patient's multiple medical comorbidities per the primary team - Given the lack of response to aggressive antibiotic course, neoplasm remains on the differential.MRI was previously recommended and is being deferred until patient's kidney function can tolerate testing. Patient evaluated at the bedside with gynecology oncology team. Will await formal consult for more details. - Recommend urgent evaluation of pre-sacral drain positioning and consideration of evaluation by the general surgery/ colorectal surgery team. Primary team contacted. - Recommend NPO status immediately in the event that operative intervention is necessary - Hold all anticoagulation at this time in the event that operative intervention is necessary PLAN: Sepsis (HCC) Tubo-ovarian abscess Urinary tract infection She is status post IR drainage and placement of left adnexal and presacral space drains on 10/23/2025. 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 MADELINE (acute kidney injury) Ureteral obstruction She is status post bilateral nephrostomy tube placement on 10/23/2025. - Urology following Schizophrenia (HCC) Bipolar disorder (HCC) - Resume gabapentin renally dose 300 mg 3 times daily - Continue Klonopin 1 mg twice daily as needed for anxiety - Continue home Abilify 20 mg daily, Wellbutrin 300 mg daily, Haldol 2.5 mg daily, baclofen 10 mg 3times daily Obstructive sleep apnea syndrome Chronic obstructive lung disease (HCC) On NC 2L at baseline. Hyperlipidemia Hypertension Type 2 diabetes mellitus (HCC) Has been normotensive and euglycemic. - Continue Lipitor 40 mg daily - Holding lisinopril 2.5 mg daily given MADELINE - Holding aspirin 81 mg nightly - POCT ACHS - Sliding scale Vitals: Date/Time Temp Pulse Resp BP SpO2 O2 Device 10/25/25 0603 98.2 (36.8) 75 18 147/80 Abnormal 100 Supplemental Oxygen 10/25/25 0419 98.4 (36.9) 78 16 98/61 98 Supplemental Oxygen Meds/Treatments: Scheduled Medication Ordered Dose/Rate, Route, Frequency Last Action ARIPiprazole (ABILIFY) tablet 20 mg 20 mg, PO, Daily Given, 20 mg at 10/25 1018 ascorbic acid (VITAMIN C) tablet 250 mg 250 mg, PO, Daily Given, 250 mg at 10/25 1018 [Provider Held] aspirin enteric coated (ECOTRIN LOW STRENGTH) tablet 81 mg On hold since 10/23/2025 at 0155 until manually unheld Hold reason: Other - Comment required, Hold comment: Unclear indication for home ASA 81 mg, PO, Nightly Ordered atorvastatin (LIPITOR) tablet 40 mg 40 mg, PO, Nightly Given, 40 mg at 10/249 baclofen (LIORESAL) tablet 10 mg 10 mg, PO, TID Given, 10 mg at 10/25 1036 buPROPion (WELLBUTRIN XL) 24 hr tablet 300 mg 300 mg, PO, QAM Given, 300 mg at 10/25 0505 cefTRIAXone (ROCEPHIN) 2 g in sodium chloride-MBP (NS) 100 mL IVPB-MBP 2 g, IV, Q24H New Bag, 2 g at 10/25 1019 chlorhexidine gluconate 2 % wipes - daily CHG application No Dose/Rate, TOP, Daily Given, 1 each at 10/24 0724 diclofenac (VOLTAREN) 1 % gel 2 g 2 g, TOP, 4x Daily Given, 2 g at 10/24 0826 docusate sodium (COLACE) capsule 100 mg 100 mg, PO, BID Given, 100 mg at 10/25 1018 ferrous sulfate EC tablet 325 mg 325 mg, PO, Daily Given, 325 mg at 10/25 1018 gabapentin (NEURONTIN) capsule 300 mg 300 mg, PO, TID Given, 300 mg at 10/25 1049 haloperidol (HALDOL) tablet 2.5 mg 2.5 mg, PO, BID Given, 2.5 mg at 10/25 1050 [Provider Held] heparin (porcine) 5000 unit/mL injection 5,000 Units On hold since today at 1112 until manually unheld Hold reason: Pre-procedure 5,000 Units, SC, Q8H RACHEL Given, 5,000 Units at 10/25 0501 insulin lispro (HumaLOG/ADMELOG) 100 units/mL injection 1-5 Units 1-5 Units, SC, Q4H RACHEL Given, 1 Units at 10/25 0500 levothyroxine (SYNTHROID, LEVOTHROID) tablet 200 mcg 200 mcg, PO, Daily 6AM Given, 200 mcg at 10/25 0504 [Provider Held] lisinopril (PRINIVIL,ZeSTRIL) tablet 2.5 mg On hold since 10/23/2025 at 0127 until manually unheld (Needs Review) Hold reason: Change in vital signs 2.5 mg, PO, Daily Ordered [Provider Held] loratadine (CLARITIN) tablet 10 mg On hold since 10/23/2025 at 0127 until manually unheld (Needs Review) Hold reason: Change in vital signs 10 mg, PO, QAM Ordered metroNIDAZOLE (FLAGYL) tablet 500 mg 500 mg, PO, Q12H RACHEL Given, 500 mg at 10/25 1018 montelukast (SINGULAIR) tablet 10 mg 10 mg, PO, Nightly Given, 10 mg at 10/24 2149 PANTOprazole (PROTONIX) EC tablet 40 mg 40 mg, PO, Daily Given, 40 mg at 10/25 1018 potassium chloride (KLOR-CON M20) CR tablet 20 mEq 20 mEq, PO, q2h Given, 20 mEq at 10/25 1018 sucralfate (CARAFATE) tablet 1 g 1 g, PO, 4x daily Given, 1 g at 10/25 1057 PRN Medication Ordered Dose/Rate, Route, Frequency Last Action acetaminophen (TYLENOL) tablet 975 mg 975 mg, PO, Q6H PRN Given, 975 mg at 10/25 0020 albuterol (PROVENTIL HFA; VENTOLIN HFA) inhaler 2 puff 2 puff, IN, Q4H PRN Ordered clonazePAM (KlonoPIN) tablet 1 mg 1 mg, PO, Q12H PRN Given, 1 mg at 10/24 2320 dextrose 50 % solution 12.5 g (Or Linked Group #1) 12.5 g, IV, Q15 Min PRN Given, 12.5 g at 12/13 1748 dextrose 50 % solution 25 g (Or Linked Group #1) 25 g, IV, Q15 Min PRN See Alternative, 10/23 1748 glucagon (GLUCAGEN) injection 1 mg (Or Linked Group #1) 1 mg, IM, Daily PRN See Alternative, 10/23 1748 glucose (GLUTOSE 15) 40 % oral gel 37.5 g (Or Linked Group #1) 1 Tube, PO, Q15 Min PRN See Alternative, 10/23 1748 glucose (GLUTOSE 15) 40 % oral gel 75 g (Or Linked Group #1) 2 Tube, PO, Q15 Min PRN See Alternative, 10/23 1748 [Provider Held] hydrOXYzine HCl (ATARAX) tablet 50 mg On hold since 10/23/2025 at 0127 until manually unheld (Needs Review) Hold reason: Change in vital signs 50 mg, PO, Q6H PRN Ordered loperamide (IMODIUM A-D) capsule 2 mg 2 mg, PO, Q6H PRN Given, 2 mg at 10/24 2312 polyethylene glycol (miraLAx) packet 17 g 17 g, PO, Daily PRN Ordered Labs/Diagnostics: 10/25/25 04:24 10/25/25 05:46 10/25/25 08:42 White Blood Cell Count 24.3 (H) Red Blood Cell Count 3.06 (L) Hemoglobin 7.8 (L) Hematocrit 24.0 (L) MCV 78 (L) MCH 25.5 (L) MCHC 32.5 RDW 16.5 (H) Platelet Count 482 (H) MPV 9.7 nRBC 0.1 nRBC, Absolute 0.02 Sodium 141 Potassium 3.3 (L) Chloride 106 CO2, POC 22 Anion Gap 13 BUN 20 Creatinine 1.59 (H) Bun / Creat Ratio 13 Glucose 129 (H) Calcium 8.7 eGFR 39 (L) POC Glucose 148 (H) 110 (H) Bed Type: Telemetry D/C Plan: Ongoing Sign Sada Melgar RN 10/25/2025 11:45 AM * Case Coordination-Payor Communication - Sada Melgar RN - 10/25/2025 11:45 AM EST Admission Note Type: (Inpt/Obsv): Inpatient Date of Admission: 10/23/2025 Admitting Dx: Sepsis (HCC) [A41.9] PMH: Past Medical History: Diagnosis Date Anemia Anxiety Bipolar disorder (HCC) COPD (chronic obstructive pulmonary disease) (HCC) Diabetes mellitus (HCC) Hyperlipidemia Obesity Sleep apnea HPI: Patient is a 55 year old female with past medical history of COPD (baseline 2 L nocturnal O2),hypertension, hyperlipidemia, diabetes, DANIEL, schizophrenia, bipolar disorder, history of papillary thyroid carcinoma status post thyroidectomy, history of left lower lung cancer, abnormal uterine bleeding, and recent hospitalization in ICU for urosepsis who presented to [facility] 10/22for confusion. Of note, recent hospitalization (10/01 - 10/08/2025) with ICU admission due to septic shock suspected UTI origin. At that time also had pelvic abscess status post IR drainage, no growth from that aspirate culture. Initially treated with vancomycin and meropenem, discharged home with 7-day course ofAugmentin and metronidazole. The patient notes complete resolution of UTI symptoms after leaving the hospital 10/08. She notes about 5 days after this hospitalization (10 days ago), she had onset of dysuria and suprapubic discomfort which has persisted. On morning of admission, patient's noted her to have weird talk .Given this sudden change in mental status, went back to [place] for further evaluation. Unable to contact at this time for further collateral. According to patient, per baseline she lives at home with and children and is independent of ADLs. Notes chronic lower back pain. At OSH, initially found to be tachycardic, febrile, leukocytosis 27K, hypotensive and subsequently started on levo. Also found to have acute renal failure with creatinine of 3.83 (baseline 1). CT at OSH showed expansion of left adnexal collection, as well as stable moderate hydronephrosis. Started on Vanco, given 3.5 L IVF and transferred to for further care. ED course: Also initiated on Zosyn. Discontinued levo given stable MAPs. IR consulted for possible drain placement and potential nephrostomy tube due to moderate hydronephrosis in the setting of acute renal failure. Shake Loader consulted for transvaginal US to better characterize TOA. Vitals: 10/23/25 2200 -- 110 Abnormal 19 97/48 Abnormal 95 nasal cannula 10/23/252001 101.1 (38.4) Abnormal -- -- -- -- -- 10/23/251999 -- 121 Abnormal 21 Abnormal 97/50 Abnormal 93 nasal cannula 10/23/25 1800 -- 130 Abnormal 19 127/58 Abnormal 96 nasal cannula 10/23/25 1648 101.3 (38.5) Abnormal -- -- -- -- -- 10/23/25 1600 -- 184 Abnormal -- 150/67 Abnormal 93 nasal cannula 10/23/25 1510 -- 99 -- -- 98 -- 10/23/25 1505 -- 102 Abnormal 18 124/61 98 -- 10/23/25 1500 97 (36.1) 102 Abnormal 20 153/65 Abnormal 100 -- 10/23/25 1455 -- 105 Abnormal 20 151/57 Abnormal 100 -- 10/23/25 1450 -- 106 Abnormal 20 154/69 Abnormal 100 -- 10/23/25 1445 97.4 (36.3) 102 Abnormal 20 169/79 Abnormal 100 -- 10/23/25 1435 -- 99 18 136/69 97 -- 10/23/25 1430 -- 86 18 115/69 100 -- 10/23/25 1420 -- 84 18 111/59 100 -- 10/23/25 1415 -- 82 18 112/56 Abnormal 100 -- 10/23/25 1330 -- 85 18 103/56 Abnormal 98 -- 10/23/25 1325 -- 85 -- 103/65 98 -- 10/23/25 1320 -- 86 18 106/55 Abnormal 98 -- 10/23/25 1315 -- 90 20 107/51 Abnormal 98 -- 10/23/25 1310 -- 89 20 111/51 Abnormal 98 -- 10/23/25 1255 -- 90 20 115/63 98 -- 10/23/25 1250 97 (36.1) 80 20 100/58 Abnormal 99 -- 10/23/25 1245 -- 84 18 105/59 98 -- 10/23/25 1240 -- 87 20 103/58 Abnormal 98 -- 10/23/25 1200 -- 92 16 102/51 Abnormal 97 nasal cannula 10/23/25 1000 -- 94 16 103/55 Abnormal 97 nasal cannula 10/23/25 0800 -- 94 18 101/50 Abnormal 99 nasal cannula 10/23/25 0341 98.8 (37.1) 90 18 108/57 Abnormal 96 nasal cannula Labs/Diagnostics: 10/22/25 18:12 10/22/25 18:15 10/22/25 18:18 10/22/25 18:19 10/22/25 18:20 10/22/25 18:57 10/22/25 19:01 White Blood Cell Count 26.9 (H) Red Blood Cell Count 2.71 (L) Hemoglobin 7.0 (L) Hematocrit 21.6 (L) MCV 80 MCH 25.8 (L) MCHC 32.4 RDW 16.0 (H) Platelet Count 389 MPV 9.7 Neutrophils Man 80 Lymphocytes Man 9 Abs Lymphocytes Man 2.4 Monocytes Man 4 Abs Monocytes Man 1.1 Basophils Auto 1 Bands Man 6 Abs Neutrophils Count (ANC) 23.1 (H) BASO ABS 0.3 (H) Normochromic Present Normocytic Present Sodium 135 (L) Potassium 3.2 (L) Chloride 96 (L) CO2, POC 20 (L) Anion Gap 19 (H) BUN 45 (H) Creatinine 3.83 (H) Bun / Creat Ratio 12 Glucose 85 Calcium 7.8 (L) Protein, Total 7.2 Albumin 3.5 Globulin 3.7 A/G Ratio 0.9 (L) eGFR 13 (L) Bilirubin Total 0.3 Aspartate Aminotrans (AST/SGOT) 56 (H) Alanine Aminotrans (ALT) 28 Alkaline Phosphatase 125 (H) Lipase 32 Lactic Acid 0.9 Anticoagulant NO ANTI COAGULANT MEDS OTHER AGENT OR UNKNOWN Prothrombin Time 15.0 (H) INR 1.3 aPTT 26 POC Glucose 96 Blood Culture Rpt (P) Culture Klebsiella pneumoniae 1000 col/mL ! (P) Sterile after 2 days (P) Urinalysis with Reflex to Microscopic and Culture Rpt ! Reflexive Urine Culture Rpt ! (P) Color Yellow Clarity Cloudy pH 5.0 Glucose, Urine Negative Protein Trace ! Ketones Negative Blood Small ! Leukocyte Esterase Moderate ! Bilirubin Negative Nitrite Negative Specific [place] 1.010 WBC >25 (H) RBC 1 Bacteria Present ! Casts 17 (H) Hyaline Casts Present Epithelial Cells 2 Chloride, Urine, Random <20 Creatinine, Urine, Random 88 Potassium, Urine (Random) 22 Sodium, Urine Random 21 ABO Rh O NEGATIVE O NEGATIVE Antibody Screen NEGATIVE Blood Bank Comment Second Sample needed for Blood Transfusion Specimen Expiration 10/25/2025 10/22/25 19:18 10/22/25 21:04 10/23/25 00:05 10/23/25 00:16 10/23/25 01:55 10/23/25 02:22 10/23/25 02:46 White Blood Cell Count 26.5 (H) Red Blood Cell Count 2.82 (L) Hemoglobin 7.4 (L) Hematocrit 22.6 (L) MCV 80 MCH 26.2 (L) MCHC 32.7 RDW 16.1 (H) Platelet Count 390 MPV 10.0 Ammonia 44 Vitamin B12 477 Total Iron Binding Capacity 126 UIBC 110 (L) Iron 16 (L) Iron Sat 13 (L) Ferritin 1,172 (H) Lactic Acid 0.7 Vancomycin, Random 16 POC Glucose 68 Blood Culture Rpt (P) Culture Sterile after 2 days (P) MRSA Result Not Detected Nasal MRSA Screen, PCR Rpt 10/23/25 08:22 10/23/25 09:47 10/23/25 12:06 10/23/25 12:46 White Blood Cell Count 26.1 (H) Red Blood Cell Count 2.92 (L) Hemoglobin 7.6 (L) Hematocrit 23.6 (L) MCV 81 MCH 26.0 (L) MCHC 32.2 RDW 16.1 (H) Platelet Count 425 MPV 10.0 Neutrophils Man 84 Lymphocytes Man 9 Abs Lymphocytes Man 2.4 Monocytes Man 4 Abs Monocytes Man 1.0 Basophils Auto 2 Abs Neutrophils Count (ANC) 21.9 (H) BASO ABS 0.5 (H) Myelocytes 1 Abs Myelocytes 0.3 (H) Smear Comment See Comment Normochromic Present Normocytic Present Target Cells Occasional Sodium 134 (L) Potassium 3.7 Chloride 101 CO2, POC 21 (L) Anion Gap 12 BUN 43 (H) Creatinine 3.12 (H) Bun / Creat Ratio 14 Glucose 94 Calcium 8.0 (L) Magnesium 2.1 eGFR 17 (L) Phosphorus 4.5 High Sensitivity Troponin T 24 (H) Delta (Change) NO PREVIOUS RESULT proBNP, N-terminal 1,039 (H) Estimated Average Glucose 212 Hemoglobin A1C 9.0 (H) TSH, Highly Sensitive 6.26 (H) POC Glucose 108 (H) 96 Anaerobic Culture Rpt (IP) Culture No fungi isolated. Culture will be held for two weeks. (P) PENDING (P) E.coli ! (P) Aerobic culture (Gram stain included) Rpt ! (P) Fungal Culture (non-blood) Rpt (P) Mycobacteria Culture (includes Acid Fast Smear) Rpt (P) U/S BENDER MACHINE PELVIS: Significantly limited examination. The ovaries are not visualized secondary to overlying bowel gas and difficulty in positioning/compliance during the exam. Partial visualization of complex free intraperitoneal fluid. Ill-defined fluid collections with surrounding debris and septations as well as areas of increased vascularity within the right and left adnexal regions. Findings may represent abscesses/phlegmon. Frontal myometrial uterine fibroid measuring 4.8 cm in diameter. ECG: Sinus tachycardia Low voltage QRS Cannot rule out Anterior infarct , age undetermined Abnormal ECG Orders/Treatment Plan: 55 year old female with past medical history of COPD (baseline 2 L nocturnalO2), hypertension, hyperlipidemia, diabetes, DANIEL, schizophrenia, bipolar disorder, history of papillary thyroid carcinoma status post thyroidectomy, history of left lower lung cancer, abnormal uterine bleeding, and recent hospitalization in ICU for urosepsis who presented to [facility] 10/22 for altered mental status and found to have sepsis likely secondary to tubo-ovarian abscess, as well as possible urosepsis. Assessment & Plan: Sepsis (HCC) Tubo-ovarian abscess Urinary tract infection History of urosepsis with previous Vanco/meropenem coverage, status post outpatient Augmentin and metronidazole coverage. 10 days of dysuria and suprapubic discomfort. UA indicative of UTI. Sepsis given fever (at OSH), heart rate >90, WBC 27K with suspected urinary/abscess source. CT abdomen pelvis 10/22 showing fluid collection containing gas producing 9.3 X4.4X 5.5 cm) in the cul-de-sac along the dorsal surface of the uterus. As well as enlargement/inflammatory changes of the adnexa left> right (new gas medial to the left adnexa). Transvaginal ultrasound 10/22 visualizing same abscess collection per above, as well as a frontal myometrial uterine fibroid measuring 4.8 cm in diameter. Status post 3.5 L IVF at OSH. Previously required levo, now off of pressors. Warmer exam, good capillary refill. -Antibiotics: start cefepime and clindomycin given gas present on transvaginal ultrasound, continuewith vanco -Follow-up ID recs -Follow-up IR recs for source control -Follow-up DRY JANITOR recs -Follow-up urine culture 10/22 -Follow-up blood cultures 10/22 -Telemetry Npo except meds -If blood pressure drops, above threshold for pressors in ICU given already received full sepsis bolus -Holding home aspirin, unclear indication for this medication Anemia Per chart review, previous hemoglobins 12, with steady decline. H/H on admission 7.0/21.6. Will consent for blood transfusion. -Follow-up cbc - Follow-up iron, ferritin, b12 - Hemoglobin goal greater than 7 - Holding chemical DVT prophylaxis, continue with SCDs MADELINE (acute kidney injury) Baseline creatinine 1.01-1.29. Presented with creatinine 4.59. CT abdomen pelvis showing moderate hydronephrosis likely related to inflammatory changes. Status post Petty catheter placement urine production. Unclear etiology of MADELINE at this time, will rehydrate. Status post 3.5 L IV fluid. -Start D5 LR at 100 cc/hr -If no improvement in renal function, consider nephrology consult High anion gap metabolic acidosis Lactic acid within normal limits. Unclear etiology. -Follow-up repeat BMP Hypocalcemia Hypokalemia Calcium 7.8, potassium 3.2 on arrival. -Potassium chloride 40 mEq every 4 hours x 2 doses Type 2 diabetes mellitus (HCC) -Holding home glipizide, metformin, semaglutide - Low-dose ISS Schizophrenia (HCC) Bipolar disorder (HCC) -Continue home Abilify, bupropion, Haldol, clonazepam -If mental status does not improve consider holding these agents Postoperative hypothyroidism -Continue home levothyroxine Obstructive sleep apnea syndrome Chronic obstructive lung disease (HCC) Home nocturnal 2 L nasal cannula. -Continue with home oxygen requirements Gastroesophageal reflux disease -Continue home Pepcid Hyperlipidemia Hypertension -Holding home antihypertensives in the setting of sepsis -Continue home statin Medications: Tylenol PO x1, Abilify PO daily, Vitamin C PO daily, Lipitor PO nightly, Lioresal PO TID, Wellbutrin XL PO daily, Maxipime IV q24h, CHG TOP daily, Cleocin IV q8h, Voltaren TOP QID, Colace PO BID, Ferrous Sulfate EC PO daily, Haldol PO BID, Heparin subcutaneous q8h, Humalog SSI subcutaneous q4h, Synthroid PO daily, Singulair PO nightly, Protonix PO daily, Zosyn IV x1, Klor- Con M20 PO x2, Right Step PO daily, Carafate PO QID, Vancocin IV x1, D5LR IV infusion at 100 mL/hr, Tylenol PO PRN x2, Klonopin PO PRN x1, Dextrose IV PRN x1 Bed Type: Step Down Sign Sada Melgar RN 10/25/2025 11:45 AM Continued Stay Review Date: 10/24/2025 Clinical Update: Sis Valdez is a 55 y.o. female HTN, HLD, T2DM, DANIEL, COPD (2 L NC at night), schizophrenia, bipolar disorder, papillary thyroid carcinoma s/p thyroidectomy, NSCLC s/p LLL resection (02/2025), abnormal uterine bleeding, and recent hospitalization in ICU for urosepsis and TOA whopresented to [place] 10/22 for AMS and found to have sepsis likely secondary to re-accumulation of t ubo-ovarian abscess, as well as possible urosepsis. Transferred to and admitted to medical SD. She is now status post bilateral PCN placement, tubo- ovarian abscess drainage. Urology following, recommendations in place: Assessment & Plan Sis Valdez is a 55 y.o. female who presented 10/23 with sepsis in the context of tubo-ovarianabscess and Urology was consulted for bilateral hydronephrosis. She is POD 1 s/p bilateral PCN placement along with a IR adnexal drain and an IR pelvic drain. Reviewing her CT from prior to placement, it does appear that her ureter is narrow at the level of her pelvic abscess which was the likely source of her obstruction. It is unclear the extent that urosepsis is contributing to her general sepsis picture, particularly with large amount of pus drained from her abscesses. Sepsis may also be contributing to her MADELINE in addition to her obstruction. It ispossible her hydronephrosis would have resolved after draining her abscesses alone. Regardless, hanna has definitive drainage with bilateral percutaneous nephrostomy tubes. These should remain in place while she is acutely ill and can hopefully be removed after resolution of her pelvic pathology. This will most likely occur in the outpatient setting. - Bilateral nephrostomy tubes to gravity drainage - Appreciate ID recommendations regarding antibiotics - Follow-up urine culture - Trend creatinine - No additional urology service interventions anticipated this admission - Please page urology with questions or concerns Gynecology following, recommendations in place: Assessment & Plan Assessment 55 y.o. with a history of urosepsis and suspected reaccumulation of tubo-ovarian abscess after previous drainage, now admitted to step down for sepsis, complicated by bilateral hydronephrosisand MADELINE. She is now POD#1 IR aspiration of recurrent TOA with drain in left adnexa and presacral space and bilateral PCNs. Overnight, patient was febrile (likely due to recent manipulation of abscess). She is overall well appearing this morning. Vital signs most recently stable. Plan - s/p IR drainage and placement of left adnexal and presacral space drains. - ID following. Appreciate continued antibiotic recommendations. Currently transitioned to IV Zosyn. F/u culture and cytology.Febrile overnight to 101.1 however this may be anticipated due to recent procedure. - Given recurrent nature of the TOA, recommend evaluating for neoplasm. Strongly recommend obtaining MRI for evaluation. Will consider BENDER MACHINE Onc consult tomorrow. - MADELINE: Cr improving, most recently 2.25 this morning. Bilateral PCNs in place. Defer management of MADELINE to primary team. - Appreciate excellent care per primary care PM Progress Note Assessment: 55 y.o. history of urosepsis and suspected reaccumulation of tubo- ovarian abscess after previous drainage, now admitted to step down for sepsis, complicated by bilateral hydronephrosis and MADELINE. She is now POD#1 IR aspiration of recurrent TOA with drain in left adnexa and presacral space andbilateral PCNs. Pain remains well controlled during the day. Patient without new BENDER MACHINE concerns during the day. Plan: - Recommend MRI, per primary team awaiting improvement in renal function - Rest of the plan per AM note - Appreciate excellent care per primary team PLAN: Urosepsis Tubo-ovarian abscess status post drainage She is now status post IR drainage and placement of left adnexal and presacral space drains on 10/23/2025 - DRY JANITOR following - Urology following - ID following, appreciate recs - Continue antibiotics with Zosyn - Continue to monitor WBC and fever curve - Gynecology recommends MRI for malignancy workup. Will hold for now given impaired kidney function. MADELINE Moderate hydronephrosis status post bilateral PCN placement MADELINE has been improving, most recent creatinine of 2.25, presented with creatinine of 3.83. -Strict VILMA's - Daily BMP - Medications renally dosed Hypernatremia Sodium on 10/24/2025 146. - D5W Hypertension Hyperlipidemia Type 2 diabetes mellitus Has been normotensive and euglycemic. - Continue Lipitor 40 mg daily - Holding lisinopril 2.5 mg daily given MADELINE - Holding aspirin 81 mg nightly - POCT ACHS - Sliding scale History of schizophrenia History of bipolar disorder -Resume gabapentin renally dose 300 mg 3 times daily - Continue Klonopin 1 mg twice daily as needed for anxiety - Continue home Abilify 20 mg daily, Wellbutrin 300 mg daily, Haldol 2.5 mg daily, baclofen 10 mg 3times daily Vitals: 10/24/25 2359 100.3 (37.9) Abnormal 93 16 120/72 95 room air (none) 10/24/25 2200 -- 92 22 Abnormal 132/62 95 room air (none) 10/24/25 2000 99.8 (37.7) 96 24 Abnormal 129/59 94 room air (none) 10/24/25 1800 -- 98 19 124/60 96 room air (none) 10/24/25 1600 -- 92 19 121/59 95 room air (none) 10/24/25 1559 99.9 (37.7) -- -- -- -- -- 10/24/25 1400 -- 91 24 Abnormal 104/62 96 room air (none) 10/24/25 1200 -- 91 18 116/58 Abnormal 97 nasal cannula 10/24/25 1000 -- 92 20 100/53 Abnormal 97 nasal cannula 10/24/25 0800 98.1 (36.7) 89 17 104/60 98 nasal cannula 10/24/25 0600 -- 93 17 117/57 Abnormal 96 nasal cannula 10/24/25 0400 97.5 (36.4) 96 21 Abnormal 111/60 98 nasal cannula 10/24/25 0200 -- 96 18 106/55 Abnormal 94 nasal cannula 10/24/25 0000 -- 100 21 Abnormal 100/52 Abnormal 96 nasal cannula Meds/Treatments: Scheduled Medication Ordered Dose/Rate, Route, Frequency Last Action ARIPiprazole (ABILIFY) tablet 20 mg 20 mg, PO, Daily Given, 20 mg at 10/25 1018 ascorbic acid (VITAMIN C) tablet 250 mg 250 mg, PO, Daily Given, 250 mg at 10/25 1018 [Provider Held] aspirin enteric coated (ECOTRIN LOW STRENGTH) tablet 81 mg On hold since 10/23/2025 at 0155 until manually unheld Hold reason: Other - Comment required, Hold comment: Unclear indication for home ASA 81 mg, PO, Nightly Ordered atorvastatin (LIPITOR) tablet 40 mg 40 mg, PO, Nightly Given, 40 mg at 10/24 2149 baclofen (LIORESAL) tablet 10 mg 10 mg, PO, TID Given, 10 mg at 10/25 1036 buPROPion (WELLBUTRIN XL) 24 hr tablet 300 mg 300 mg, PO, QAM Given, 300 mg at 10/25 0505 cefTRIAXone (ROCEPHIN) 2 g in sodium chloride-MBP (NS) 100 mL IVPB-MBP 2 g, IV, Q24H New Bag, 2 g at 10/25 1019 chlorhexidine gluconate 2 % wipes - daily CHG application No Dose/Rate, TOP, Daily Given, 1 each at 10/24 0724 diclofenac (VOLTAREN) 1 % gel 2 g 2 g, TOP, 4x Daily Given, 2 g at 10/24 0826 docusate sodium (COLACE) capsule 100 mg 100 mg, PO, BID Given, 100 mg at 10/25 1018 ferrous sulfate EC tablet 325 mg 325 mg, PO, Daily Given, 325 mg at 10/25 1018 gabapentin (NEURONTIN) capsule 300 mg 300 mg, PO, TID Given, 300 mg at 10/25 1049 haloperidol (HALDOL) tablet 2.5 mg 2.5 mg, PO, BID Given, 2.5 mg at 10/25 1050 [Provider Held] heparin (porcine) 5000 unit/mL injection 5,000 Units On hold since today at 1112 until manually unheld Hold reason: Pre-procedure 5,000 Units, SC, Q8H RACHEL Given, 5,000 Units at 10/25 0501 insulin lispro (HumaLOG/ADMELOG) 100 units/mL injection 1-5 Units 1-5 Units, SC, Q4H RACHEL Given, 1 Units at 10/25 0500 levothyroxine (SYNTHROID, LEVOTHROID) tablet 200 mcg 200 mcg, PO, Daily 6AM Given, 200 mcg at 10/25 0504 [Provider Held] lisinopril (PRINIVIL,ZeSTRIL) tablet 2.5 mg On hold since 10/23/2025 at 0127 until manually unheld (Needs Review) Hold reason: Change in vital signs 2.5 mg, PO, Daily Ordered [Provider Held] loratadine (CLARITIN) tablet 10 mg On hold since 10/23/2025 at 0127 until manually unheld (Needs Review) Hold reason: Change in vital signs 10 mg, PO, QAM Ordered metroNIDAZOLE (FLAGYL) tablet 500 mg 500 mg, PO, Q12H RACHEL Given, 500 mg at 10/25 1018 montelukast (SINGULAIR) tablet 10 mg 10 mg, PO, Nightly Given, 10 mg at 10/24 2149 PANTOprazole (PROTONIX) EC tablet 40 mg 40 mg, PO, Daily Given, 40 mg at 10/25 1018 potassium chloride (KLOR-CON M20) CR tablet 20 mEq 20 mEq, PO, q2h Given, 20 mEq at 10/25 1018 sucralfate (CARAFATE) tablet 1 g 1 g, PO, 4x daily Given, 1 g at 10/25 1057 PRN Medication Ordered Dose/Rate, Route, Frequency Last Action acetaminophen (TYLENOL) tablet 975 mg 975 mg, PO, Q6H PRN Given, 975 mg at 10/25 0020 albuterol (PROVENTIL HFA; VENTOLIN HFA) inhaler 2 puff 2 puff, IN, Q4H PRN Ordered clonazePAM (KlonoPIN) tablet 1 mg 1 mg, PO, Q12H PRN Given, 1 mg at 10/240 dextrose 50 % solution 12.5 g (Or Linked Group #1) 12.5 g, IV, Q15 Min PRN Given, 12.5 g at 10/23 1748 dextrose 50 % solution 25 g (Or Linked Group #1) 25 g, IV, Q15 Min PRN See Alternative, 10/23 1748 glucagon (GLUCAGEN) injection 1 mg (Or Linked Group #1) 1 mg, IM, Daily PRN See Alternative, 10/23 1748 glucose (GLUTOSE 15) 40 % oral gel 37.5 g (Or Linked Group #1) 1 Tube, PO, Q15 Min PRN See Alternative, 10/23 1748 glucose (GLUTOSE 15) 40 % oral gel 75 g (Or Linked Group #1) 2 Tube, PO, Q15 Min PRN See Alternative, 10/23 1748 [Provider Held] hydrOXYzine HCl (ATARAX) tablet 50 mg On hold since 10/23/2025 at 0127 until manually unheld (Needs Review) Hold reason: Change in vital signs 50 mg, PO, Q6H PRN Ordered loperamide (IMODIUM A-D) capsule 2 mg 2 mg, PO, Q6H PRN Given, 2 mg at 10/24 2312 polyethylene glycol (miraLAx) packet 17 g 17 g, PO, Daily PRN Ordered Labs/Diagnostics: 10/24/25 02:14 10/24/25 03:55 10/24/25 06:46 10/24/25 07:40 10/24/25 11:44 10/24/25 15:54 10/24/25 20:06 White Blood Cell Count 21.8 (H) Red Blood Cell Count 2.92 (L) Hemoglobin 7.5 (L) Hematocrit 23.6 (L) MCV 81 MCH 25.7 (L) MCHC 31.8 RDW 16.3 (H) Platelet Count 422 MPV 10.0 Sodium 146 (H) Potassium 3.5 Chloride 111 (H) CO2, POC 21 (L) Anion Gap 14 BUN 32 (H) Creatinine 2.25 (H) Bun / Creat Ratio 14 Glucose 72 Calcium 8.4 (L) Magnesium 2.1 eGFR 25 (L) Vancomycin, Random 14 POC Glucose 99 105 (H) 82 83 110 (H) 157 (H) Bed Type: Step Down D/C Plan: Ongoing Sign Sada Melgar RN 10/25/2025 11:45 AM * Plan of Care - Brittani Guerra RN - 10/25/2025 8:33 AM EST Transfer from [place] [facility], settled in bed. Bilateral nephrostomy tubes and bilateral drains in place, output monitored. Urethral catheter removed gently as ordered. IV antibiotics continued. Slept with 2L oxygen. All safety maintained. Problem: Adult Inpatient Plan of Care Goal: Plan of Care Review Outcome: Progressing Goal: Patient-Specific Goal (Individualized) Outcome: Progressing Goal: Absence of Hospital-Acquired Illness or Injury Outcome: Progressing Goal: Optimal Comfort and Wellbeing Outcome: Progressing Goal: Readiness for Transition of Care Outcome: Progressing Brittani Guerra 10/25/2025 8:33 AM * Plan of Care - Desiree Raymond RN - 10/25/2025 12:40 AM EST Plan of Care Reviewed With: patient Progress: no change Outcome Evaluation: 5781-0628- Sis is aox4, denies pain. Remains on room air. Continues IV Abx.all drains patent. Transferred to [facility] with all belongings. Desiree Raymond 10/25/2025 12:40 AM * Plan of Care - Antionette Bautista RN - 10/24/2025 6:10 PM EST Plan of Care Reviewed With: patient Progress: improving Outcome Evaluation: [id number]: No acute changes. Sis remains oriented with chronic lower back pain, medicated per JAN. Drain OP documented in flowsheets and I&Os. Diet advanced, tolerating well. Multiple loose/soft BM throughout shift, MD Abrams aware, PRN immodium ordered and given. BP stable. Started on D5W and remains on Ivabx. Transfer order in place for [facility], awaiting clean room. Antionette Bautista 10/24/2025 6:10 PM * Plan of Care - Melissa Leyva MD - 10/24/2025 3:20 PM EST Family Update Note: Attempted to contact patient's . However, there was no answer. HIPAA compliant message was not left, as voicemail was full. The primary team will attempt to call back tomorrow for medical update. Addendum: Patient's returned my call. We discussed that patient has been doing better, results of an IR her WBC, fever curve. She still on antibiotics, and urology and gynecology are following. We alsodiscussed about the need to proceed with an MRI to better evaluate her pelvis for conditions including possible neoplasia, however currently holding that given her impaired kidney function. We also discussed that we are following up her kidney function on a daily basis and that it has been improving. Also informed him that patient is currently being deemed stable to be transferred out of the stepdown unit to regular medicine floors. Answered all his questions to the best of my knowledge. Melissa Leyva MD PGY2, Internal Medicine * Hospital Course - Marnie Calloway MD - 10/24/2025 6:44 AM EST Patient is a 55-year-old female with past medical history of bipolar disorder, schizophrenia, DANIEL, COPD (2 L nasal cannula nocturnally), NSCLC of LLL s/p lobectomy (02/2025), HTN, HLD, T2DM, papillarythyroid carcinoma s/p thyroidectomy, abnormal uterine bleeding, recent hospitalization for urosepsis and tubo-ovarian abscess discharged on 10/08 who presented initially to [facility] foraltered mental status, weakness, fatigue. Of note, patient was recently admitted at [facility] in September where she presented with back pain and was found to have urosepsis with imaging noting concern for TOA. She was treated with IV antibiotics and IR drainage. She was discharged on 10/08 on continued course of antibiotics. She reported feeling well until about 5 days prior to presentation. Patient reports complaints of increasing weakness, fatigue, nausea and decreased PO intake. At OSH patient was found to be tachycardic, febrile, hypotensive requiring Levophed. Labs significant for leukocytosis, acute renal failure. Imaging noted expansion of her previously visualized left adnexal collection and moderate hydronephrosis. She was given vancomycin, started on Levophed and transferred to [facility] for concern of worsening tubo-ovarian abscess. On arrival to , patient was weaned off Levophed and she remained hemodynamically stable. Labs significant for leukocytosis 26.9, H/H 7/21.6, BUN/Cr 45/3.83, K 3.2, HCO3 20, AG 19, lactic acid 0.9. BENDER MACHINE was consulted. IR was consulted with plan for drainage of TOA and bilateral PCNs due to bilateral hydronephrosis. Patient was admitted to [facility] for further management. On hospital day number 1 she was brought to IR and bilateral PCNs were placed. Additionally, there was a drain placed in the left adnexa exiting through the left lower quadrant as well as a right transgluteal drain terminating in the presacral space. There was return of purulent fluid and cultures were sent. On hospital day #3, she was evaluated on morning rounds and there was stool noted in the transgluteal drain, concerning for fistula versus iatrogenic injury with drain placement. Her leukocytosis worsened and BENDER MACHINE oncology was formally consulted who felt that she required a trip to the operating room for management of TOA. General surgery was consulted given presence of stool in her transgluteal drain and they desire to drain study prior to proceeding to the operating room. Ultimately, IR was consulted but given the acute nature of getting imaging done prior to going to operating room, decision was made to proceed with CT abdomen and pelvis with contrast pushed through both drains. The CT showed a fistulous connection between the transgluteal drain and the rectum. She was brought to the operating room that day with colorectal and general surgery. She underwent an exploratory laparotomy, washout of pelvis, flexible sigmoidoscopy, diverting loop ileostomy. The flexible sigmoidoscopy performed at the beginning the case showed a nontraumatic chronic rectal fistula. Once in the abdominal cavity, there was a hostile pelvis with significant adhesions. Once his adhesions were able to be taken down, there was an evolving partial large bowel obstruction noted and given this finding along with the rectal fistula, decision was made to perform diverting loop colostomy. The surgery went well without complication. She was transferred to PACU in stable condition. On hospital day #4/postoperative day #1 she was noted to be very delirious requiring restraints [id number] sitter. Medicine was consulted who gave recommendations for medication management of herdelirium. She was otherwise doing well from a postoperative perspective and there was good functionof her ostomy. She was advanced to clear liquid diet. Her antibiotics were changed to Unasyn. On hospital day #5/postoperative day #2, her delirium had started to improve and she was advanced to a clear liquid diet. Her psychiatric medications were restarted and there was good improvement in her mental status at this point. She was noted to be quite anemic, therefore she was transfused with1 unit PRBCs. On hospital day #6/postoperative day #3, she continued to be anemic and received an additional unitof PRBCs. She was advanced to low residue diet. On hospital day #7/postoperative day #4, there was purulent drainage from her midline vertical incision at the inferior aspect. Humza were removed and area of purulent fluid and this was opened at bedside. The fascia was palpated to be intact. It was irrigated and then a wet-to-dry dressing was placed. Over the remainder of her hospitalization, she required wet-to-dry dressings twice a day. On postoperative day #7, there was need to remove additional humza to just below the umbilicus. The complex human resources manager performed teaching and evaluated given concern for leakage of stool out of ostomy appliance into the incision. Case management began to coordinate for her to go home with IV antibiotics and packingchanges. On postoperative day #9 her left adnexal IR drain was removed without issue. She had a PICC line placed for long-term IV antibiotics. The patient met all criteria for discharge home on POD#12. She was discharged home with outpatient IV antibiotics with VNA services for a total of 4 weeks from day of surgery. * Plan of Care - Desiree Raymond RN - 10/24/2025 5:55 AM EST Plan of Care Reviewed With: patient Progress: no change Outcome Evaluation: [id number]- Sis is aox4, denies pain. Remain on 2L nasal cannula, breathing unlabored. Remains NPO. Afebrile over night. Continues IV abx. All drains remains patent. Desiree Raymond 10/24/2025 5:55 AM * Plan of Care - Antionette Bautista RN - 10/23/2025 8:04 PM EST Plan of Care Reviewed With: patient Progress: improving Outcome Evaluation: [id number]: Sis is Aox4, comes to [facility] from IR s/p X2 abscess drains and X2 PCN, all with good OP, see I&Os. Per MD Schultz, meds from prior to B7[facility] will not be given, give meds as scheduled. No c/o acute pain, endorses chronic back pain. Bsg 74, remains NPO, 1/2 amp given per MD Schultz, recheck 125. Febrile to 101.3, PRN tylenol given. BP stable. CHG completed. Remains onIvabx. Antionette Bautista 10/23/2025 8:04 PM * Brief Op Note - Bibiana Mcwilliams MD - 10/23/2025 1:52 PM EST IR Inject Nephrostogram New Access-Bilat W/Guidance Brief Op Note Sis Valdez 55 y.o. 10/22/2025 - 10/23/2025 Pre-op Diagnosis: Bilateral ureteral obstruction iso TOA Post-op Diagnosis: Post-Op Diagnosis Codes: * Ureteral obstruction [N13.5] IR Inject Nephrostogram New Access-Bilat W/Guidance: 36413 (CPT??) Additional Procedures Surgeons and Role: * Bibiana Mcwilliams MD - Primary Procedure Description: Pelvic drain placement Left adnexal drain placement Left adnexal aspiration Bilateral PCN placement Procedure Findings: 12 Fr drain placed into the presacral abscess with removal of 55 ml of emely pus. Sample sent for culture. 10 Fr mini loop drain placed into left adnexa with removal of 35 ml of emely pus. Sample sent for culture. Aspiration of 20 ml of thick serous fluid removed from one of the locules in the left adnexa. Sample sent to cytology. 10 Fr bilateral PCNs placed via a lower pole calyx on the left and a mid pole calyx on the right. Severe hydroureteronephrosis with sudden tapering in the distal ureters bilaterally, likely at the level of the pelvic inflammation, with severe stenosis but persistent flow into the bladder. Slightly cloudy urine output. Sample of each side sent for culture. Anesthesia: moderate sedation Staff: Sedation Nurse: Qian Levin RN; Abby Ovalle RN IR Technologist: Leonardo Jean Baptiste, RT; Noel Stokes RT Estimated Blood Loss: * No values recorded between 10/23/2025 1:52 PM and 10/23/2025 3:21 PM * Specimens: See above. Bibiana Mcwilliams Date: 10/23/2025 Time: 3:21 PM Procedure(s): IR Inject Nephrostogram New Access-Bilat W/Guidance Additional Procedures * Plan of Care - Cinthya Hooker PA-C - 10/23/2025 1:06 PM EST Spouse, Khalida, called updated regarding current plan of care. All questions answered at this time. Cinthya Hooker PA-C 10/23/2025 1:06 PM * ACP (Advance Care Planning) - Sisi Freitas MD - 10/23/2025 3:31 AM EST Advance Care Planning Goals of Care Discussion Discussion Date: 10/23/2025 This was a voluntary discussion between the patient / family and the medical team. Discussion Participants: - Patient: Sis Valdez Yes [x] No [] - Health care team members: Myself (Dr Freitas) Advance Directive Assessment No Patient's Decisional Making Capacity today:After my evaluation today*, patient has capacity to understand the consequences of his/her decisions Legally Authorized Wastewater Analyst Lab Analyst (Medical Decision Maker) Health Care Wastewater Analyst Lab Analyst: Existing code status: Code Status: Full Code Meeting Summary and Next Steps: Code Status (end of discussion): Full Code Goals of Care (end of discussion): Restorative I personally spent 10 minutes in [id number] with the patient / family involved in the advance care planning discussion. Sign: Sisi Freitas MD 10/23/2025 3:31 AM * Assessment & Plan Note - Sisi Freitas MD - 10/23/2025 2:05 AM EST Associated Problem(s): Hypocalcemia Calcium 7.8, potassium 3.2 on arrival. -Potassium chloride 40 mEq every 4 hours x 2 doses * Assessment & Plan Note - Sisi Freitas MD - 10/23/2025 2:05 AM EST Associated Problem(s): Hypokalemia Calcium 7.8, potassium 3.2 on arrival. -Potassium chloride 40 mEq every 4 hours x 2 doses * Assessment & Plan Note - Sisi Freitas MD - 10/23/2025 2:05 AM EST Associated Problem(s): High anion gap metabolic acidosis Lactic acid within normal limits. Unclear etiology. -Follow-up repeat BMP * Assessment & Plan Note - Sisi Freitas MD - 10/23/2025 2:05 AM EST Associated Problem(s): Sepsis (HCC) History of urosepsis with previous Vanco/meropenem coverage, status post outpatient Augmentin and metronidazole coverage. 10 days of dysuria and suprapubic discomfort. UA indicative of UTI. Sepsis given fever (at OSH), heart rate >90, WBC 27K with suspected urinary/abscess source. CT abdomen pelvis 10/22 showing fluid collection containing gas producing 9.3 X4.4X 5.5 cm) in the cul-de-sac along the dorsal surface of the uterus. As well as enlargement/inflammatory changes of the adnexa left> right (new gas medial to the left adnexa). Transvaginal ultrasound 10/22 visualizing same abscess collection per above, as well as a frontal myometrial uterine fibroid measuring 4.8 cm in diameter. Status post 3.5 L IVF at OSH. Previously required levo, now off of pressors. Warmer exam, good capillary refill. -Antibiotics: start cefepime and clindomycin given gas present on transvaginal ultrasound, continuewith vanco -Follow-up ID recs -Follow-up IR recs for source control -Follow-up DRY JANITOR recs -Follow-up urine culture 10/22 -Follow-up blood cultures 10/22 -Telemetry Npo except meds -If blood pressure drops, above threshold for pressors in ICU given already received full sepsis bolus -Holding home aspirin, unclear indication for this medication * Assessment & Plan Note - Sisi Freitas MD - 10/23/2025 2:05 AM EST Associated Problem(s): Tubo-ovarian abscess History of urosepsis with previous Vanco/meropenem coverage, status post outpatient Augmentin and metronidazole coverage. 10 days of dysuria and suprapubic discomfort. UA indicative of UTI. Sepsis given fever (at OSH), heart rate >90, WBC 27K with suspected urinary/abscess source. CT abdomen pelvis 10/22 showing fluid collection containing gas producing 9.3 X4.4X 5.5 cm) in the cul-de-sac along the dorsal surface of the uterus. As well as enlargement/inflammatory changes of the adnexa left> right (new gas medial to the left adnexa). Transvaginal ultrasound 10/22 visualizing same abscess collection per above, as well as a frontal myometrial uterine fibroid measuring 4.8 cm in diameter. Status post 3.5 L IVF at OSH. Previously required levo, now off of pressors. Warmer exam, good capillary refill. -Antibiotics: start cefepime and clindomycin given gas present on transvaginal ultrasound, continuewith vanco -Follow-up ID recs -Follow-up IR recs for source control -Follow-up DRY JANITOR recs -Follow-up urine culture 10/22 -Follow-up blood cultures 10/22 -Telemetry Npo except meds -If blood pressure drops, above threshold for pressors in ICU given already received full sepsis bolus -Holding home aspirin, unclear indication for this medication * Assessment & Plan Note - Sisi Freitas MD - 10/23/2025 2:05 AM EST Associated Problem(s): Urinary tract infection History of urosepsis with previous Vanco/meropenem coverage, status post outpatient Augmentin and metronidazole coverage. 10 days of dysuria and suprapubic discomfort. UA indicative of UTI. Sepsis given fever (at OSH), heart rate >90, WBC 27K with suspected urinary/abscess source. CT abdomen pelvis 10/22 showing fluid collection containing gas producing 9.3 X4.4X 5.5 cm) in the cul-de-sac along the dorsal surface of the uterus. As well as enlargement/inflammatory changes of the adnexa left> right (new gas medial to the left adnexa). Transvaginal ultrasound 10/22 visualizing same abscess collection per above, as well as a frontal myometrial uterine fibroid measuring 4.8 cm in diameter. Status post 3.5 L IVF at OSH. Previously required levo, now off of pressors. Warmer exam, good capillary refill. -Antibiotics: start cefepime and clindomycin given gas present on transvaginal ultrasound, continuewith vanco -Follow-up ID recs -Follow-up IR recs for source control -Follow-up DRY JANITOR recs -Follow-up urine culture 10/22 -Follow-up blood cultures 10/22 -Telemetry Npo except meds -If blood pressure drops, above threshold for pressors in ICU given already received full sepsis bolus -Holding home aspirin, unclear indication for this medication * Assessment & Plan Note - Sisi Freitas MD - 10/23/2025 2:05 AM EST Associated Problem(s): Obstructive sleep apnea syndrome Home nocturnal 2 L nasal cannula. -Continue with home oxygen requirements * Assessment & Plan Note - Sisi Freitas MD - 10/23/2025 2:05 AM EST Associated Problem(s): Chronic obstructive lung disease (HCC) Home nocturnal 2 L nasal cannula. -Continue with home oxygen requirements * Assessment & Plan Note - Sisi Freitas MD - 10/23/2025 2:05 AM EST Associated Problem(s): MADELINE (acute kidney injury) Baseline creatinine 1.01-1.29. Presented with creatinine 4.59. CT abdomen pelvis showing moderate hydronephrosis likely related to inflammatory changes. Status post Petty catheter placement urine production. Unclear etiology of MADELINE at this time, will rehydrate. Status post 3.5 L IV fluid. -Start D5 LR at 100 cc/hr -If no improvement in renal function, consider nephrology consult * Assessment & Plan Note - Sisi Freitas MD - 10/23/2025 2:05 AM EST Associated Problem(s): Anemia Per chart review, previous hemoglobins 12, with steady decline. H/H on admission 7.0/21.6. Will consent for blood transfusion. -Follow-up cbc - Follow-up iron, ferritin, b12 - Hemoglobin goal greater than 7 - Holding chemical DVT prophylaxis, continue with SCDs * Assessment & Plan Note - Sisi Freitas MD - 10/23/2025 1:30 AM EST Associated Problem(s): Type 2 diabetes mellitus (HCC) -Holding home glipizide, metformin, semaglutide - Low-dose ISS * Assessment & Plan Note - Sisi Freitas MD - 10/23/2025 1:30 AM EST Associated Problem(s): Schizophrenia (HCC) -Continue home Abilify, bupropion, Haldol, clonazepam -If mental status does not improve consider holding these agents * Assessment & Plan Note - Sisi Freitas MD - 10/23/2025 1:30 AM EST Associated Problem(s): Bipolar disorder (HCC) -Continue home Abilify, bupropion, Haldol, clonazepam -If mental status does not improve consider holding these agents * Assessment & Plan Note - Sisi Freitas MD - 10/23/2025 1:30 AM EST Associated Problem(s): Postoperative hypothyroidism -Continue home levothyroxine * Assessment & Plan Note - Sisi Freitas MD - 10/23/2025 1:30 AM EST Associated Problem(s): Gastroesophageal reflux disease -Continue home Pepcid * Assessment & Plan Note - Sisi Freitas MD - 10/23/2025 1:30 AM EST Associated Problem(s): Hyperlipidemia -Holding home antihypertensives in the setting of sepsis -Continue home statin * Assessment & Plan Note - Sisi Freitas MD - 10/23/2025 1:30 AM EST Associated Problem(s): Hypertension -Holding home antihypertensives in the setting of sepsis -Continue home statin documented in this encounter Plan of Treatment Upcoming Encounters Date Type Department Care Team (Late st Contact Info) Description 11/16/2025 1:00 PM EST Office Visit [facility] Colorectal Surgery [place] [address] [phone] Miguelina Gonsalves, MARKOS [address] [id number] Pending Results Name Type Priority Associated Diagnoses Date/Time Mycobacteria Culture (includes Acid Fast Smear) Microbiology Routine 10/23/2025 1:38 PM EST Mycobacteria Culture (includes Acid Fast Smear) Microbiology Routine 10/23/2025 12:46 PM EST Transfuse RBC's:Transfusion Indications: Hemoglobin greater than 7 gm/dl or HCT greater than 21% but Acute blood loss greater than 500 ml and symptoms not corrected by volume; Transfusion duration per unit (hrs): 2 Transfusion Administration Routine 10/28/2025 5:38 PM EST Transfuse RBC's:Transfusion Indications: Hemoglobin greater than 7 gm/dl or HCT greater than 21% but Acute blood loss greater than 500 ml and symptoms not corrected by volume; Transfusion duration per unit (hrs): 2 Transfusion Administration Routine 10/28/2025 5:36 PM EST Scheduled Referrals Name Type Priority Associated Diagnoses Orde r Schedule Amb Referral to Home Health Outpatient Referral Routine Tubo-ovarian abscess Ordered: 11/03/2025 documented as of this encounter Procedures Procedure Name Priority Date/Time Associated Diagnosis Comments POCT GLUCOSE, FINGERSTICK (CHARGE) Routine 11/05/2025 8:32 AM EST POCT GLUCOSE, FINGERSTICK (CHARGE) Routine 11/05/2025 3:47 AM EST POCT GLUCOSE, FINGERSTICK (CHARGE) Routine 11/05/2025 12:18 AM EST POCT GLUCOSE, FINGERSTICK (CHARGE) Routine 11/04/2025 8:43 PM EST POCT GLUCOSE, FINGERSTICK (CHARGE) Routine 11/04/2025 4:16 PM EST POCT GLUCOSE, FINGERSTICK (CHARGE) Routine 11/04/2025 12:41 PM EST POCT GLUCOSE, FINGERSTICK (CHARGE) Routine 11/04/2025 8:29 AM EST COMPLETE BLOOD COUNT, WITH DIFFERENTIAL Routine 11/04/2025 6:43 AM EST PHOSPHORUS Routine 11/04/2025 6:43 AM EST MAGNESIUM Routine 11/04/2025 6:43 AM EST BASIC METABOLIC PANEL Routine 11/04/2025 6:43 AM EST POCT GLUCOSE, FINGERSTICK (CHARGE) Routine 11/04/2025 4:01 AM EST POCT GLUCOSE, FINGERSTICK (CHARGE) Routine 11/04/2025 12:14 AM EST POCT GLUCOSE, FINGERSTICK (CHARGE) Routine 11/03/2025 8:18 PM EST POCT GLUCOSE, FINGERSTICK (CHARGE) Routine 11/03/2025 4:12 PM EST GENERAL PROCEDURE Routine 11/03/2025 1:4 8 PM EST POCT GLUCOSE, FINGERSTICK (CHARGE) Routine 11/03/2025 12:33 PM EST POCT GLUCOSE, FINGERSTICK (CHARGE) Routine 11/03/2025 8:22 AM EST COMPLETE BLOOD COUNT, WITHOUT DIFFERENTIAL Routine 11/03/2025 7:35 AM EST PHOSPHORUS Routine 11/03/2025 7:35 AM EST MAGNESIUM Routine 11/03/2025 7:35 AM EST BASIC METABOLIC PANEL Routine 11/03/2025 7:35 AM EST POCT GLUCOSE, FINGERSTICK (CHARGE) Routine 11/03/2025 4:12 AM EST POCT GLUCOSE, FINGERSTICK (CHARGE) Routine 11/03/2025 12:33 AM EST POCT GLUCOSE, FINGERSTICK (CHARGE) Routine 11/02/2025 8:16 PM EST POCT GLUCOSE, FINGERSTICK (CHARGE) Routine 11/02/2025 4:29 PM EST POCT GLUCOSE, FINGERSTICK (CHARGE) Routine 11/02/2025 11:53 AM EST POCT GLUCOSE, FINGERSTICK (CHARGE) Routine 11/02/2025 8:39 AM EST COMPLETE BLOOD COUNT, WITHOUT DIFFERENTIAL Routine 11/02/2025 6:54 AM EST PHOSPHORUS Routine 11/02/2025 6:54 AM EST MAGNESIUM Routine 11/02/2025 6:54 AM EST BASIC METABOLIC PANEL Routine 11/02/2025 6:54 AM EST POCT GLUCOSE, FINGERSTICK (CHARGE) Routine 11/01/2025 8:56 PM EST POCT GLUCOSE, FINGERSTICK (CHARGE) Routine 11/01/2025 5:22 PM EST POCT GLUCOSE, FINGERSTICK (CHARGE) Routine 11/01/2025 11:46 AM EST POCT GLUCOSE, FINGERSTICK (CHARGE) Routine 11/01/2025 8:17 AM EST POCT GLUCOSE, FINGERSTICK (CHARGE) Routine 11/01/2025 4:14 AM EST COMPLETE BLOOD COUNT, WITHOUT DIFFERENTIAL Routine 11/01/2025 4:02 AM EST PHOSPHORUS Routine 11/01/2025 4:02 AM EST MAGNESIUM Routine 11/01/2025 4:02 AM EST BASIC METABOLIC PANEL Routine 11/01/2025 4:02 AM EST POCT GLUCOSE, FINGERSTICK (CHARGE) Routine 11/01/2025 12:22 AM EST POCT GLUCOSE, FINGERSTICK (CHARGE) Routine 10/31/2025 8:13 PM EST POCT GLUCOSE, FINGERSTICK (CHARGE) Routine 10/31/2025 4:[address] ABDOMEN+PELVIS W/CONTRAST W/PO Routine 10/31/2025 2:57 PM EST POCT GLUCOSE, FINGERSTICK (CHARGE) Routine 10/31/2025 11:58 AM EST POCT GLUCOSE, FINGERSTICK (CHARGE) Routine 10/31/2025 7:52 AM EST COMPLETE BLOOD COUNT, WITHOUT DIFFERENTIAL Routine 10/31/2025 7:29 AM EST PHOSPHORUS Routine 10/31/2025 7:29 AM EST MAGNESIUM Routine 10/31/2025 7:29 AM EST BASIC METABOLIC PANEL Routine 10/31/2025 7:29 AM EST POCT GLUCOSE, FINGERSTICK (CHARGE) Routine 10/30/2025 8:36 PM EST POCT GLUCOSE, FINGERSTICK (CHARGE) Routine 10/30/2025 5:17 PM EST POCT GLUCOSE, FINGERSTICK (CHARGE) Routine 10/30/2025 12:31 PM EST POCT GLUCOSE, FINGERSTICK (CHARGE) Routine 10/30/2025 12:18 PM EST POCT GLUCOSE, FINGERSTICK (CHARGE) Routine 10/30/2025 8:09 AM EST COMPLETE BLOOD COUNT, WITHOUT DIFFERENTIAL Routine 10/30/2025 7:28 AM EST PHOSPHORUS Routine 10/30/2025 7:28 AM EST MAGNESIUM Routine 10/30/2025 7:28 AM EST BASIC METABOLIC PANEL Routine 10/30/2025 7:28 AM EST POCT GLUCOSE, FINGERSTICK (CHARGE) Routine 10/29/2025 9:27 PM EST POCT GLUCOSE, FINGERSTICK (CHARGE) Routine 10/29/2025 5:07 PM EST POCT GLUCOSE, FINGERSTICK (CHARGE) Routine 10/29/2025 11:53 AM EST POCT GLUCOSE, FINGERSTICK (CHARGE) Routine 10/29/2025 8:26 AM EST COMPLETE BLOOD COUNT, WITHOUT DIFFERENTIAL Routine 10/29/2025 7:29 AM EST PHOSPHORUS Routine 10/29/2025 7:29 AM EST MAGNESIUM Routine 10/29/2025 7:29 AM EST BASIC METABOLIC PANEL Routine 10/29/2025 7:29 AM EST POCT GLUCOSE, FINGERSTICK (CHARGE) Routine 10/29/2025 3:56 AM EST POCT GLUCOSE, FINGERSTICK (CHARGE) Routine 10/29/2025 12:52 AM EST POCT GLUCOSE, FINGERSTICK (CHARGE) Routine 10/28/2025 9:06 PM EST TRANSFUSE RED BLOOD CELLS Routine 10/28/2025 5:36 PM EST POCT GLUCOSE, FINGERSTICK (CHARGE) Routine 10/28/2025 4:37 PM EST PREPARE RBC'S Routine 10/28/2025 1:02 PM EST POCT GLUCOSE, FINGERSTICK (CHARGE) Routine 10/28/2025 12:17 PM EST POCT GLUCOSE, FINGERSTICK (CHARGE) Routine 10/28/2025 8:33 AM EST COMPLETE BLOOD COUNT, WITHOUT DIFFERENTIAL Routine 10/28/2025 6:48 AM EST TSH, HIGHLY SENSITIVE Routine 10/28/2025 6:48 AM EST PHOSPHORUS Routine 10/28/2025 6:48 AM EST MAGNESIUM Routine 10/28/2025 6:48 AM EST BASIC METABOLIC PANEL Routine 10/28/2025 6:48 AM EST COMPLETE BLOOD COUNT, WITHOUT DIFFERENTIAL Routine 10/28/2025 6:16 AM EST POCT GLUCOSE, FINGERSTICK (CHARGE) Routine 10/28/2025 5:48 AM EST POCT GLUCOSE, FINGERSTICK (CHARGE) Routine 10/28/2025 1:01 AM EST POCT GLUCOSE, FINGERSTICK (CHARGE) Routine 10/27/2025 8:48 PM EST POCT GLUCOSE, FINGERSTICK (CHARGE) Routine 10/27/2025 5:11 PM EST TRANSFUSE RED BLOOD CELLS Routine 10/27/2025 2:29 PM EST HEMOGLOBIN AND HEMATOCRIT Routine 10/27/2025 1:17 PM EST POCT GLUCOSE, FINGERSTICK (CHARGE) Routine 10/27/2025 11:49 AM EST TYPE AND SCREEN Routine 10/27/2025 11:41 AM EST PREPARE RBC'S Routine 10/27/2025 11:30 AM EST COMPLETE BLOOD COUNT, WITHOUT DIFFERENTIAL Routine 10/27/2025 7:54 AM EST PHOSPHORUS Routine 10/27/2025 7:54 AM EST MAGNESIUM Routine 10/27/2025 7:54 AM EST BASIC METABOLIC PANEL Routine 10/27/2025 7:54 AM EST POCT GLUCOSE, FINGERSTICK (CHARGE) Routine 10/27/2025 5:12 AM EST POCT GLUCOSE, FINGERSTICK (CHARGE) Routine 10/27/2025 12:42 AM EST POCT GLUCOSE, FINGERSTICK (CHARGE) Routine 10/26/2025 9:32 PM EST POCT GLUCOSE, FINGERSTICK (CHARGE) Routine 10/26/2025 6:34 PM EST AMMONIA LEVEL Routine 10/26/2025 3:45 PM EST VITAMIN D, 25-HYDROXY Routine 10/26/2025 3:42 PM EST TSH, HIGHLY SENSITIVE Routine 10/26/2025 3:42 PM EST T4, FREE Routine 10/26/2025 3:42 PM EST POCT GLUCOSE, FINGERSTICK (CHARGE) Routine 10/26/2025 12:33 PM EST POCT GLUCOSE, FINGERSTICK (CHARGE) Routine 10/26/2025 7:52 AM EST POCT GLUCOSE, FINGERSTICK (CHARGE) Routine 10/26/2025 5:20 AM EST COMPLETE BLOOD COUNT, WITHOUT DIFFERENTIAL Routine 10/26/2025 3:57 AM EST PHOSPHORUS Routine 10/26/2025 3:57 AM EST MAGNESIUM Routine 10/26/2025 3:57 AM EST BASIC METABOLIC PANEL Routine 10/26/2025 3:57 AM EST POCT GLUCOSE, FINGERSTICK (CHARGE) Routine 10/26/2025 12:12 AM EST POCT GLUCOSE, FINGERSTICK (CHARGE) Routine 10/25/2025 9:12 PM EST XR ABDOMEN 1 VIEW-PORTABLE STAT 10/25/2025 8:39 PM EST ISTAT HEMOGLOBIN (ACTIVE) (NO CHARGE) Routine 10/25/2025 7:00 PM EST ISTAT HEMATOCRIT (ACTIVE) (NO CHARGE) Routine 10/25/2025 7:00 PM EST ISTAT CALCIUM, IONIZED (ICA) (NO CHARGE) Routine 10/25/2025 7:00 PM EST ISTAT POTASSIUM (K) (NO CHARGE) Routine 10/25/2025 7:00 PM EST ISTAT SODIUM (NA) (NO CHARGE) Routine 10/25/2025 7:00 PM EST ISTAT GLUCOSE (NO CHARGE) Routine 10/25/2025 7:00 PM EST ISTAT ARTERIAL BLOOD GAS (ABG) (NO CHARGE) Routine 10/25/2025 7:00 PM EST PATHOLOGY REPORT Routine 10/25/2025 6:41 PM EST CYTOLOGY REPORT Routine 10/25/2025 6:08 PM EST ISTAT HEMOGLOBIN (ACTIVE) (NO CHARGE) Routine 10/25/2025 5:47 PM EST ISTAT HEMATOCRIT (ACTIVE) (NO CHARGE) Routine 10/25/2025 5:47 PM EST ISTAT CALCIUM, IONIZED (ICA) (NO CHARGE) Routine 10/25/2025 5:47 PM EST ISTAT POTASSIUM (K) (NO CHARGE) Routine 10/25/2025 5:47 PM EST ISTAT SODIUM (NA) (NO CHARGE) Routine 10/25/2025 5:47 PM EST ISTAT GLUCOSE (NO CHARGE) Routine 10/25/2025 5:47 PM EST ISTAT ARTERIAL BLOOD GAS (ABG) (NO CHARGE) Routine 10/25/2025 5:47 PM EST LA EXPLORATORY LAPAROTOMY CELIOTOMY W/WO BIOPSY SPX 10/25/2025 3:57 PM EST Tubo-ovarian abscess Rectal fistula LA PERITONEAL LAVAGE W/WO IMAGING GUIDANCE 10/25/2025 3:57 PM EST Tubo-ovarian abscess Rectal fistula POCT GLUCOSE, FINGERSTICK (CHARGE) Routine 10/25/2025 1:[address] ABDOMEN+PELVIS W/CONTRAST STAT 10/25/2025 1:42 PM EST POCT GLUCOSE, FINGERSTICK (CHARGE) Routine 10/25/2025 8:42 AM EST COMPLETE BLOOD COUNT, WITHOUT DIFFERENTIAL Routine 10/25/2025 5:46 AM EST BASIC METABOLIC PANEL Routine 10/25/2025 5:46 AM EST POCT GLUCOSE, FINGERSTICK (CHARGE) Routine 10/25/2025 4:24 AM EST POCT GLUCOSE, FINGERSTICK (CHARGE) Routine 10/24/2025 11:55 PM EST POCT GLUCOSE, FINGERSTICK (CHARGE) Routine 10/24/2025 8:06 PM EST POCT GLUCOSE, FINGERSTICK (CHARGE) Routine 10/24/2025 3:54 PM EST POCT GLUCOSE, FINGERSTICK (CHARGE) Routine 10/24/2025 11:44 AM EST POCT GLUCOSE, FINGERSTICK (CHARGE) Routine 10/24/2025 7:40 AM EST COMPLETE BLOOD COUNT, WITHOUT DIFFERENTIAL Routine 10/24/2025 6:46 AM EST MAGNESIUM Routine 10/24/2025 6:46 AM EST VANCOMYCIN LEVEL-RANDOM Routine 10/24/2025 6:46 AM EST BASIC METABOLIC PANEL Routine 10/24/2025 6:46 AM EST POCT GLUCOSE, FINGERSTICK (CHARGE) Routine 10/24/2025 3:55 AM EST POCT GLUCOSE, FINGERSTICK (CHARGE) Routine 10/24/2025 2:14 AM EST POCT GLUCOSE, FINGERSTICK (CHARGE) Routine 10/23/2025 8:04 PM EST POCT GLUCOSE, FINGERSTICK (CHARGE) Routine 10/23/2025 6:09 PM EST POCT GLUCOSE, FINGERSTICK (CHARGE) Routine 10/23/2025 4:52 PM EST IR INJECT NEPHROSTOGRAM NEW ACCESS-BILAT W/GUIDANCE Routine 10/23/2025 3:30 PM EST Ureteral obstruction URINE CULTURE, COMPREHENSIVE (OR/IR/AUTOMATION QA ANALYST) Routine 10/23/2025 3:00 PM EST URINE CULTURE, COMPREHENSIVE (OR/IR/AUTOMATION QA ANALYST) Routine 10/23/2025 2:[address] ABSCESS DRAIN (RETRO) W/GUIDANCE Routine 10/23/2025 1:49 PM EST Tubo-ovarian abscess MYCOBACTERIA CULTURE (INCLUDES ACID FAST SMEAR) Routine 10/23/2025 1:38 PM EST FUNGAL CULTURE (NON-BLOOD) Routine 10/23/2025 1:38 PM EST AEROBIC CULTURE (GRAM STAIN INCLUDED) Routine 10/23/2025 1:38 PM EST ANAEROBIC CULTURE Routine 10/23/2025 1:3 8 PM EST CYTOLOGY REPORT Routine 10/23/2025 1:25 PM EST MYCOBACTERIA CULTURE (INCLUDES ACID FAST SMEAR) Routine 10/23/2025 12:46 PM EST FUNGAL CULTURE (NON-BLOOD) Routine 10/23/2025 12:46 PM EST AEROBIC CULTURE (GRAM STAIN INCLUDED) Routine 10/23/2025 12:46 PM EST ANAEROBIC CULTURE Routine 10/23/2025 12: 46 PM EST POCT GLUCOSE, FINGERSTICK (CHARGE) Routine 10/23/2025 12:06 PM EST POCT GLUCOSE, FINGERSTICK (CHARGE) Routine 10/23/2025 9:47 AM EST HIGH SENSITIVITY TROPONIN T STAT 10/23/2025 8:22 AM EST PROBNP, N-TERMINAL STAT 10/23/2025 8: 22 AM EST HEMOGLOBIN A1C WITH ESTIMATED AVERAGE GLUCOSE STAT 10/23/2025 8:22 AM EST COMPLETE BLOOD COUNT, WITH DIFFERENTIAL STAT 10/23/2025 8:22 AM EST TSH, HIGHLY SENSITIVE STAT 10/23/2025 8:22 AM EST PHOSPHORUS STAT 10/23/2025 8:22 AM EST MAGNESIUM STAT 10/23/2025 8:22 AM EST BASIC METABOLIC PANEL STAT 10/23/2025 8:22 AM EST POCT GLUCOSE, FINGERSTICK (CHARGE) Routine 10/23/2025 2:46 AM EST IRON AND TOTAL IRON BINDING CAPACITY STAT 10/23/2025 2:22 AM EST FERRITIN STAT 10/23/2025 2:22 AM EST VITAMIN B12 STAT 10/23/2025 2:22 AM EST VANCOMYCIN LEVEL-RANDOM STAT 10/23/2025 2:22 AM EST COMPLETE BLOOD COUNT, WITHOUT DIFFERENTIAL STAT 10/23/2025 1:55 AM EST AMMONIA LEVEL STAT 10/23/2025 1:55 AM EST US BENDER MACHINE PELVIS COMPLETE AND US TRANSVAGINAL STAT 10/23/2025 12:16 AM EST NASAL MRSA SCREEN, PCR STAT 12:05 AM EST LACTIC ACID, PLASMA STAT 10/22/2025 9 :04 PM EST BLOOD CULTURE (HOSP LAB) STAT 10/22/2025 7:18 PM EST ECG 12-LEAD STAT 10/22/2025 7:01 PM EST BLOOD CULTURE (HOSP LAB) STAT 10/22/2025 6:57 PM EST ABO CONFIRMATION STAT 10/22/2025 6:20 PM EST (REPORT) REFLEXIVE URINE CULTURE Routine 10/22/2025 6:19 PM EST URINALYSIS WITH REFLEX TO MICROSCOPIC AND CULTURE STAT 10/22/2025 6:19 PM EST SODIUM, URINE, RANDOM STAT 10/22/2025 6:19 PM EST POTASSIUM, URINE, RANDOM STAT 10/22/2025 6:19 PM EST CREATININE, URINE, RANDOM STAT 10/22/2025 6:19 PM EST CHLORIDE, URINE, RANDOM STAT 10/22/2025 6:19 PM EST COMPLETE BLOOD COUNT, WITH DIFFERENTIAL STAT 10/22/2025 6:18 PM EST PARTIAL THROMBOPLASTIN TIME (PTT) STAT 10/22/2025 6:18 PM EST PROTIME-INR STAT 10/22/2025 6:18 PM EST LIPASE STAT 10/22/2025 6:18 PM EST LACTIC ACID, PLASMA STAT 10/22/2025 6 :18 PM EST COMPREHENSIVE METABOLIC PANEL STAT 10/22/2025 6:18 PM EST TYPE AND SCREEN STAT 10/22/2025 6:15 PM EST POCT GLUCOSE, FINGERSTICK (CHARGE) Routine 10/22/2025 6:12 PM EST documented in this encounter Results * (ABNORMAL) POCT Glucose, Fingerstick (11/05/2025 8:32 AM EST) POC Glucose 183(H) 65 - 99 mg/dL 11/05/2025 8:32 AM EST Blood specimen / Unknown 11/05/2025 8:32 AM EST 11/05/2025 8:33 AM EST Stanislav German MD POINT OF CARE TEST ORDERABLE S Final Result [facility]OSPITAL LAB See Below * (ABNORMAL) POCT Glucose, Fingerstick (11/05/2025 3:47 AM EST) POC Glucose 185(H) 65 - 99 mg/dL 11/05/2025 3:48 AM EST Blood specimen / Unknown 11/05/2025 3:47 AM EST 11/05/2025 3:48 AM EST Stanislav German MD POINT OF CARE TEST ORDERABLE S Final Result Performing Organization Address [facility] LAB See Below * (ABNORMAL) POCT Glucose, Fingerstick (11/05/2025 12:18 AM EST) POC Glucose 187(H) 65 - 99 mg/dL 11/05/2025 12:30 AM EST Blood specimen / Unknown 11/05/2025 12:18 AM EST 11/05/2025 12:29 AM EST Stanislav German MD POINT OF CARE TEST ORDERABLE S Final Result Performing Organization Address [facility] LAB See Below * (ABNORMAL) POCT Glucose, Fingerstick (11/04/2025 8:43 PM EST) POC Glucose 275(H) 65 - 99 mg/dL 11/04/2025 8:44 PM EST Blood specimen / Unknown 11/04/2025 8:43 PM EST 11/04/2025 8:44 PM EST Result [facility] Stanislav German MD POINT OF CARE TEST ORDERABLE S Final Result Performing Organization Address [facility] LAB See Below * (ABNORMAL) POCT Glucose, Fingerstick (11/04/2025 4:16 PM EST) POC Glucose 196(H) 65 - 99 mg/dL 11/04/2025 4:17 PM EST Blood specimen / Unknown 11/04/2025 4:16 PM EST 11/04/2025 4:17 PM EST Stanislav German MD POINT OF CARE TEST ORDERABLE S Final Result Performing Organization Address [facility] LAB See Below * (ABNORMAL) POCT Glucose, Fingerstick (11/04/2025 12:41 PM EST) POC Glucose 137(H) 65 - 99 mg/dL 11/04/2025 12:42 PM EST Blood specimen / Unknown 11/04/2025 12:41 PM EST 11/04/2025 12:42 PM EST us Stanislav German MD POINT OF CARE TEST ORDERABLE S Final Result [facility] LAB See Below * (ABNORMAL) POCT Glucose, Fingerstick (11/04/2025 8:29 AM EST) POC Glucose 158(H) 65 - 99 mg/dL 11/04/2025 8:29 AM EST Blood specimen / Unknown 11/04/2025 8:29 AM EST 11/04/2025 8:30 AM EST us Stanislav German MD POINT OF CARE TEST ORDERABLE S Final Result [facility] LAB See Below * (ABNORMAL) Basic Metabolic Panel (11/04/2025 6:43 AM EST) Glucose 137(H) 65 - 99 mg/dL 11/04/2025 9:07 AM [facility] Comment:Fasting: <100 mg/dL, Non-Fasting: <200 mg/dL (ADA 2005) Blood Urea Nitrogen (BUN) 10 8 - 21 mg/dL 11/04/2025 9:07 AM [facility] Creatinine 1.14(H) 0.40 - 1.10 mg/dL 11/04/2025 9:07 AM [facility] eGFR 58(L) >59 11/04/2025 9:07 AM [facility] Comment:CKD-EPI (2020) in mL /min/1.73 sq meters. Sodium 137 136 - 145 mmol/L 11/04/2025 9:07 AM [facility] Potassium 3.9 3.4 - 5.3 mmol/L 11/04/2025 9:07 AM [facility] Chloride 100 98 - 107 mmol/L 11/04/2025 9:07 AM [facility] CO2 26 22 - 33 mmol/L 11/04/2025 9:07 AM [facility] Anion Gap 11 7 - 17 11/04/2025 9:07 AM [facility] Calcium 8.9 8.7 - 10.5 mg/dL 11/04/2025 9:07 AM [facility] BUN/Creatinine Ratio 9(L) 10.0 - 25.0 Ratio 11/04/2025 9:07 AM [facility] Blood Blood specimen / Unknown 11/04/2025 6:43 AM EST 11/04/2025 8:35 AM EST us Tisha Shah MD LAB BLOOD [place] [address], [place] [address] * (ABNORMAL) Complete Blood Count WITH Differential - in AM (11/04/2025 6:43 AM EST) White Blood Cell Count 16.2(H) 4.0 - 11.0 Thou/uL 11/04/2025 8:55 AM [facility] Platelet Count 677(H) 150 - 450 Thou/uL 11/04/2025 8:55 AM [facility] Hemoglobin 8.7(L) 11.7 - 15.7 g/dL 11/04/2025 8:55 AM [facility] Hematocrit 27.8(L) 35.0 - 47.0 % 11/04/2025 8:55 AM [facility] Red Blood Cell Count 3.30(L) 4.00 - 5.40 Mil/uL 11/04/2025 8:55 AM [facility] MCV 84 80 - 100 fL 11/04/2025 8:55 AM [facility] MCH 26.4(L) 27.0 - 31.0 pg 11/04/2025 8:55 AM [facility] MCHC 31.3 30.0 - 36.0 g/dL 11/04/2025 8:55 AM [facility] RDW 17.7(H) 11.5 - 14.5 % 11/04/2025 8:55 AM [facility] MPV 9.5 7.5 - 12.5 fL 11/04/2025 8:55 AM [facility] Neutrophils Auto 68.1 % 11/04/20 8:55 AM [facility] Immature Granulocytes 2.2 % 11/04/2025 8:55 AM [facility] Lymphocytes Auto 16.1 % 11/04/20 8:55 AM [facility] Monocytes Auto 8.6 % 11/04/2025 8:55 AM [facility] Eosinophils Auto 4.3 % 11/04/20 8:55 AM [facility] Basophils Auto 0.7 % 11/04/2025 8:55 AM [facility] Abs Neutrophils Auto 11.06(H) 2.00 - 7.50 Thou/uL 11/04/2025 8:55 AM [facility] Abs Immature Granulocytes 0.35(H) 0.00 - 0.10 Thou/uL 11/04/2025 8:55 AM [facility] Abs Lymphocytes Auto 2.62 1.50 - 4.50 Thou/uL 11/04/2025 8:55 AM [facility] Abs Monocytes Auto 1.40 0.20 - 1.50 Thou/uL 11/04/2025 8:55 AM [facility] Abs Eosinophils Auto 0.70 0.00 - 0.70 Thou/uL 11/04/2025 8:55 AM [facility] Abs Basophils Auto 0.11 0.00 - 0.20 Thou/uL 11/04/2025 8:55 AM [facility] Blood Blood specimen / Unknown 11/04/2025 6:43 AM EST 11/04/2025 8:35 AM EST us Tisha Shah MD LAB [place]LOOD [place] [address], [place] [address] * (ABNORMAL) Magnesium (11/04/2025 6:43 AM EST) Magnesium 1.5(L) 1.6 - 2.7 mg/dL 11/04/2025 9:07 AM [facility] Blood Blood specimen / Unknown 11/04/2025 6:43 AM EST 11/04/2025 8:35 AM EST us Tisha Shah MD LAB BLOOD ORDERABLES Final Resul t Performing Organization Address [facility]/[place] [address], [place] [address] * Phosphorus (11/04/2025 6:43 AM EST) Phosphorus 4.1 2.7 - 4.5 mg/dL 11/04/2025 9:07 AM EST [facility] Blood Blood specimen / Unknown 11/04/2025 6:43 AM EST 11/04/2025 8:35 AM EST us Tisha Shah MD LAB BLOOD ORDERABLES Final Resul t Performing Organization Address [facility]/[place] [address], [place] [address] * (ABNORMAL) POCT Glucose, Fingerstick (11/04/2025 4:01 AM EST) POC Glucose 160(H) 65 - 99 mg/dL 11/04/2025 4:03 AM EST Blood specimen / Unknown 11/04/2025 4:01 AM EST 11/04/2025 4:02 AM EST us Stanislav German MD POINT OF CARE TEST ORDERABLE S Final Result [facility]ITAL LAB See Below * (ABNORMAL) POCT Glucose, Fingerstick (11/04/2025 12:14 AM EST) POC Glucose 168(H) 65 - 99 mg/dL 11/04/2025 12:16 AM EST Blood specimen / Unknown 11/04/2025 12:14 AM EST 11/04/2025 12:16 AM EST Stanislav German MD POINT OF CARE TEST ORDERABLE S Final Result Performing Organization Address [facility] LAB See Below * (ABNORMAL) POCT Glucose, Fingerstick (11/03/2025 8:18 PM EST) POC Glucose 187(H) 65 - 99 mg/dL 11/03/2025 8:23 PM EST Blood specimen / Unknown 11/03/2025 8:18 PM EST 11/03/2025 8:23 PM EST Stanislav German MD POINT OF CARE TEST ORDERABLE S Final Result Performing Organization Address [facility] LAB See Below * (ABNORMAL) POCT Glucose, Fingerstick (11/03/2025 4:12 PM EST) POC Glucose 176(H) 65 - 99 mg/dL 11/03/2025 4:17 PM EST Blood specimen / Unknown 11/03/2025 4:12 PM EST 11/03/2025 4:17 PM EST Stanislav German MD POINT OF CARE TEST ORDERABLE S Final Result Performing Organization Address [facility] LAB See Below * PICC/Midline Insertion (11/03/2025 1:48 PM EST) Narrative Lata Wharton RN - 11/03/2025 1:48 PM EST Lata Wharton RN 11/03/2025 1:51 PM PICC/Midline Insertion Date/Time: 11/03/2025 1:48 PM Performed by: Lata Wharton RN Authorized by: Eddie Alicia MD Consent: Verbal consent obtained. Written consent obtained Risks and benefits: risks, benefits and alternatives were discussed Consent given by: patient Patient understanding: patient states understanding of the procedure being performed Patient consent: the patient's understanding of the procedure matches consent given Procedure consent: procedure consent matches procedure scheduled Relevant documents: relevant documents present and verified Test results: test results available and properly labeled Site marked: the operative site was marked Imaging studies: imaging studies available Required items: required blood products, implants, devices, and special equipment available Patient identity confirmed: verbally with patient and arm band Time out: Immediately prior to procedure a time out was called to verify the correct patient, procedure, equipment, marketing support specialist and site/side marked as required. Preparation: Patient was prepped and draped in the usual sterile fashion. Local anesthesia used: yes Anesthesia: local infiltration Anesthesia: Local anesthesia used: yes Local Anesthetic: lidocaine 1% without epinephrine Anesthetic total: 4 mL Sedation: Patient sedated: no Patient tolerance: patient tolerated the procedure well with no immediate complications Eddie Alicia MD PROCEDURE/MINOR SURGICAL ORDERAB LES Final Result * (ABNORMAL) POCT Glucose, Fingerstick (11/03/2025 12:33 PM EST) POC Glucose 167(H) 65 - 99 mg/dL 11/03/2025 12:34 PM EST Blood specimen / Unknown 11/03/2025 12:33 PM EST 11/03/2025 12:34 PM EST Stanislav German MD POINT OF CARE TEST ORDERABLE S Final Result Performing Organization Address [facility] Co me Phone Number [facility] LAB See Below * (ABNORMAL) POCT Glucose, Fingerstick (11/03/2025 8:22 AM EST) POC Glucose 154(H) 65 - 99 mg/dL 11/03/2025 8:22 AM EST Blood specimen / Unknown 11/03/2025 8:22 AM EST 11/03/2025 8:23 AM EST Stanislav German MD POINT OF CARE TEST ORDERABLE S Final Result Performing Organization Address [facility] Phone Number [facility] LAB See Below * Phosphorus (11/03/2025 7:35 AM EST) Phosphorus 3.4 2.7 - 4.5 mg/dL 11/03/2025 8:35 AM EST [facility] Blood Blood specimen / Unknown 11/03/2025 7:35 AM EST 11/03/2025 8:01 AM EST us Tisha Shah MD LAB BLOOD ORDERABLES Final Resul t Performing Organization Address [facility] [place] [address], [place] [address] * (ABNORMAL) Magnesium (11/03/2025 7:35 AM EST) Magnesium 1.5(L) 1.6 - 2.7 mg/dL 11/03/2025 8:35 AM [facility] Blood Blood specimen / Unknown 11/03/2025 7:35 AM EST 11/03/2025 8:01 AM EST us Tisha Shah MD LAB BLOOD ORDERABLES Final Resul t Performing Organization Address [facility] [place] [address], [place] [address] * (ABNORMAL) Basic Metabolic Panel (11/03/2025 7:35 AM EST) Glucose 146(H) 65 - 99 mg/dL 11/03/2025 8:35 AM [facility] Comment:Fasting: <100 mg/dL, Non-Fasting: <200 mg/dL (ADA 2005) Blood Urea Nitrogen (BUN) 6(L) 8 - 21 mg/dL 11/03/2025 8:35 AM [facility] Creatinine 1.05 0.40 - 1.10 mg/dL 11/03/2025 8:35 AM [facility] eGFR 64 >59 11/03/2025 8:35 AM [facility] Comment:CKD-EPI (2020) in mL /min/1.73 sq meters. Sodium 139 136 - 145 mmol/L 11/03/2025 8:35 AM [facility] Potassium 4.0 3.4 - 5.3 mmol/L 11/03/2025 8:35 AM [facility] Chloride 102 98 - 107 mmol/L 11/03/2025 8:35 AM [facility] CO2 28 22 - 33 mmol/L 11/03/2025 8:35 AM [facility] Anion Gap 9 7 - 17 11/03/2025 8:35 AM [facility] Calcium 8.5(L) 8.7 - 10.5 mg/dL 11/03/2025 8:35 AM [facility] BUN/Creatinine Ratio 6(L) 10.0 - 25.0 Ratio 11/03/2025 8:35 AM [facility] Blood Blood specimen / Unknown 11/03/2025 7:35 AM EST 11/03/2025 8:01 AM EST us Tisha Shah MD LAB BLOOD [place] [address], [place] [address] * (ABNORMAL) COMPLETE BLOOD COUNT, WITHOUT DIFFERENTIAL (11/03/2025 7:35 AM EST) White Blood Cell Count 21.5(H) 4.0 - 11.0 Thou/uL 11/03/2025 8:20 AM [facility] Platelet Count 636(H) 150 - 450 Thou/uL 11/03/2025 8:20 AM [facility] Hemoglobin 8.6(L) 11.7 - 15.7 g/dL 11/03/2025 8:20 AM [facility] Hematocrit 27.5(L) 35.0 - 47.0 % 11/03/2025 8:20 AM [facility] Red Blood Cell Count 3.25(L) 4.00 - 5.40 Mil/uL 11/03/2025 8:20 AM [facility] MCV 85 80 - 100 fL 11/03/2025 8:20 AM [facility] MCH 26.5(L) 27.0 - 31.0 pg 11/03/2025 8:20 AM [facility] MCHC 31.3 30.0 - 36.0 g/dL 11/03/2025 8:20 AM [facility] RDW 18.0(H) 11.5 - 14.5 % 11/03/2025 8:20 AM EST [facility] MPV 9.5 7.5 - 12.5 fL 11/03/2025 8:20 AM EST [facility] Blood Blood specimen / Unknown 11/03/2025 7:35 AM EST 11/03/2025 8:01 AM EST Tisha Shah MD LAB BLOOD ORDERABLES Final Resul t Performing Organization Address City/[facility] [place] [address], [place] [address] * (ABNORMAL) POCT Glucose, Fingerstick (11/03/2025 4:12 AM EST) POC Glucose 159(H) 65 - 99 mg/dL 11/03/2025 4:13 AM EST Blood specimen / Unknown 11/03/2025 4:12 AM EST 11/03/2025 4:13 AM EST Stanislav German MD POINT OF CARE TEST ORDERABLE S Final Result Performing Organization Address [facility] de Phone Number [facility] See Below * (ABNORMAL) POCT Glucose, Fingerstick (11/03/2025 12:33 AM EST) POC Glucose 170(H) 65 - 99 mg/dL 11/03/2025 12:34 AM EST Blood specimen / Unknown 11/03/2025 12:33 AM EST 11/03/2025 12:34 AM EST Stanislav German MD POINT OF CARE TEST ORDERABLE S Final Result Performing Organization Address [facility] de Phone Number [facility] See Below * (ABNORMAL) POCT Glucose, Fingerstick (11/02/2025 8:16 PM EST) POC Glucose 255(H) 65 - 99 mg/dL 11/02/2025 8:17 PM EST Blood specimen / Unknown 11/02/2025 8:16 PM EST 11/02/2025 8:17 PM EST us Stanislav German MD POINT OF CARE TEST ORDERABLE S Final Result Performing Organization Address [facility] Phone Number [facility] See Below * (ABNORMAL) POCT Glucose, Fingerstick (11/02/2025 4:29 PM EST) POC Glucose 186(H) 65 - 99 mg/dL 11/02/2025 4:30 PM EST Blood specimen / Unknown 11/02/2025 4:29 PM EST 11/02/2025 4:30 PM EST us Stanislav German MD POINT OF CARE TEST ORDERABLE S Final Result Performing Organization Address [facility] Number [facility] See Below * (ABNORMAL) POCT Glucose, Fingerstick (11/02/2025 11:53 AM EST) POC Glucose 240(H) 65 - 99 mg/dL 11/02/2025 11:54 AM EST Blood specimen / Unknown 11/02/2025 11:53 AM EST 11/02/2025 11:54 AM EST us Stanislav German MD POINT OF CARE TEST ORDERABLE S Final Result Performing Organization Address [facility] Phone Number HOSPITAL LAB See Below * (ABNORMAL) POCT Glucose, Fingerstick (11/02/2025 8:39 AM EST) POC Glucose 146(H) 65 - 99 mg/dL 11/02/2025 8:40 AM EST Blood specimen / Unknown 11/02/2025 8:39 AM EST 11/02/2025 8:40 AM EST us Stanislav German MD POINT OF CARE TEST ORDERABLE S Final Result Performing Organization Address [facility] Phone Number HOSPITAL LAB See Below * Phosphorus (11/02/2025 6:54 AM EST) Phosphorus 2.8 2.7 - 4.5 mg/dL 11/02/2025 8:45 AM [facility] Blood Blood specimen / Unknown 11/02/2025 6:54 AM EST 11/02/2025 8:03 AM EST us Eddie Alicia MD LAB BLOOD [place] [address], [address] [address] * Magnesium (11/02/2025 6:54 AM EST) Magnesium 1.6 1.6 - 2.7 mg/dL 11/02/2025 8:45 AM [facility] Blood Blood specimen / Unknown 11/02/2025 6:54 AM EST 11/02/2025 8:03 AM EST us Eddie Alicia MD LAB BLOOD ORDERABLES Final Resul t [address] [address], [address] [address] * (ABNORMAL) Basic Metabolic Panel (11/02/2025 6:54 AM EST) Pathologist [facility] Glucose 140(H) 65 - 99 mg/dL 11/02/2025 8:45 AM [facility] Comment:Fasting: <100 mg/dL, Non-Fasting: <200 mg/dL (ADA 2004) Blood Urea Nitrogen (BUN) 5(L) 8 - 21 mg/dL 11/02/2025 8:45 AM [facility] Creatinine 1.02 0.40 - 1.10 mg/dL 11/02/2025 8:45 AM [facility] eGFR 66 >59 11/02/2025 8:45 AM [facility] Comment:CKD-EPI (2020) in mL /min/1.73 sq meters. Sodium 142 136 - 145 mmol/L 11/02/2025 8:45 AM [facility] Potassium 4.0 3.4 - 5.3 mmol/L 11/02/2025 8:45 AM [facility] Chloride 105 98 - 107 mmol/L 11/02/2025 8:45 AM [facility] CO2 25 22 - 33 mmol/L 11/02/2025 8:45 AM [facility] Anion Gap 12 7 - 17 11/02/2025 8:45 AM [facility] Calcium 8.3(L) 8.7 - 10.5 mg/dL 11/02/2025 8:45 AM [facility] BUN/Creatinine Ratio 5(L) 10.0 - 25.0 Ratio 11/02/2025 8:45 AM [facility] Blood Blood specimen / Unknown 11/02/2025 6:54 AM EST 11/02/2025 8:03 AM EST Eddie Alicia MD LAB [place]LOOD [place] [address], [place] [address] * (ABNORMAL) COMPLETE BLOOD COUNT, WITHOUT DIFFERENTIAL (11/02/2025 6:54 AM EST) White Blood Cell Count 23.1(H) 4.0 - 11.0 Thou/uL 11/02/2025 8:36 AM [facility] Platelet Count 637(H) 150 - 450 Thou/uL 11/02/2025 8:36 AM [facility] Hemoglobin 8.2(L) 11.7 - 15.7 g/dL 11/02/2025 8:36 AM [facility] Hematocrit 27.2(L) 35.0 - 47.0 % 11/02/2025 8:36 AM [facility] Red Blood Cell Count 3.21(L) 4.00 - 5.40 Mil/uL 11/02/2025 8:36 AM [facility] MCV 85 80 - 100 fL 11/02/2025 8:36 AM [facility] MCH 25.5(L) 27.0 - 31.0 pg 11/02/2025 8:36 AM [facility] MCHC 30.1 30.0 - 36.0 g/dL 11/02/2025 8:36 AM [facility] RDW 18.1(H) 11.5 - 14.5 % 11/02/2025 8:36 AM [facility] MPV 10.2 7.5 - 12.5 fL 11/02/2025 8:36 AM [facility] Blood Blood specimen / Unknown 11/02/2025 6:54 AM EST 11/02/2025 8:03 AM EST Eddie Alicia MD LAB BLOOD ORDERABLES Final Resul t Performing Organization Address [facility] [place] [address], [place] [address] * (ABNORMAL) POCT Glucose, Fingerstick (11/01/2025 8:56 PM EST) POC Glucose 211(H) 65 - 99 mg/dL 11/01/2025 9:01 PM EST Blood specimen / Unknown 11/01/2025 8:56 PM EST 11/01/2025 9:01 PM EST Stanislav German MD POINT OF CARE TEST ORDERABLE S Final Result Performing Organization Address City/[facility]/ZIP Co de Phone Number [facility] See Below * (ABNORMAL) POCT Glucose, Fingerstick (11/01/2025 5:22 PM EST) POC Glucose 176(H) 65 - 99 mg/dL 11/01/2025 5:23 PM EST Blood specimen / Unknown 11/01/2025 5:22 PM EST 11/01/2025 5:23 PM EST Stanislav German MD POINT OF CARE TEST ORDERABLE S Final Result HOSPITAL LAB See Below * (ABNORMAL) POCT Glucose, Fingerstick (11/01/2025 11:46 AM EST) POC Glucose 186(H) 65 - 99 mg/dL 11/01/2025 11:47 AM EST Blood specimen / Unknown 11/01/2025 11:46 AM EST 11/01/2025 11:47 AM EST Stanislav German MD POINT OF CARE TEST ORDERABLE S Final Result Performing Organization Address City/State/ZIP Co me Phone Number HOSPITAL LAB See Below * (ABNORMAL) POCT Glucose, Fingerstick (11/01/2025 8:17 AM EST) POC Glucose 120(H) 65 - 99 mg/dL 11/01/2025 8:19 AM EST Blood specimen / Unknown 11/01/2025 8:17 AM EST 11/01/2025 8:19 AM EST us Stanislav German MD POINT OF CARE TEST ORDERABLE S Final Result Performing Organization Address [facility] Phone Number [facility] See Below * (ABNORMAL) POCT Glucose, Fingerstick (11/01/2025 4:14 AM EST) POC Glucose 144(H) 65 - 99 mg/dL 11/01/2025 4:15 AM EST Blood specimen / Unknown 11/01/2025 4:14 AM EST 11/01/2025 4:15 AM EST us Stanislav German MD POINT OF CARE TEST ORDERABLE S Final Result Performing Organization Address [facility] Phone Number HOSPITAL LAB See Below * Phosphorus (11/01/2025 4:02 AM EST) Phosphorus 3.2 2.7 - 4.5 mg/dL 11/01/2025 5:10 AM EST [facility] Blood Blood specimen / Unknown 11/01/2025 4:02 AM EST 11/01/2025 4:39 AM EST Lamin Cuenca MD LAB BLOOD ORDERABLES Final Result Performing Organization Address City/[facility]/[place] [address], [place] [address] * (ABNORMAL) Magnesium (11/01/2025 4:02 AM EST) Magnesium 1.5(L) 1.6 - 2.7 mg/dL 11/01/2025 5:10 AM [facility] Blood Blood specimen / Unknown 11/01/2025 4:02 AM EST 11/01/2025 4:39 AM EST Lamin Cuenca MD LAB BLOOD ORDERABLES Final Result Performing Organization Address [facility] [place] [address], [place] [address] * (ABNORMAL) COMPLETE BLOOD COUNT, WITHOUT DIFFERENTIAL (11/01/2025 4:02 AM EST) White Blood Cell Count 25.7(H) 4.0 - 11.0 Thou/uL 11/01/2025 4:50 AM [facility] Platelet Count 551(H) 150 - 450 Thou/uL 11/01/2025 4:50 AM [facility] Hemoglobin 9.0(L) 11.7 - 15.7 g/dL 11/01/2025 4:50 AM [facility] Hematocrit 29.3(L) 35.0 - 47.0 % 11/01/2025 4:50 AM [facility] Red Blood Cell Count 3.47(L) 4.00 - 5.40 Mil/uL 11/01/2025 4:50 AM [facility] MCV 84 80 - 100 fL 11/01/2025 4:50 AM [facility] MCH 25.9(L) 27.0 - 31.0 pg 11/01/2025 4:50 AM [facility] MCHC 30.7 30.0 - 36.0 g/dL 11/01/2025 4:50 AM [facility] RDW 18.5(H) 11.5 - 14.5 % 11/01/2025 4:50 AM [facility] MPV 9.7 7.5 - 12.5 fL 11/01/2025 4:50 AM [facility] Blood Blood specimen / Unknown 11/01/2025 4:02 AM EST 11/01/2025 4:39 AM EST Lamin Cuenca MD LAB BLOOD ORDERABLES Final Result [address] [address], [address] [address] * (ABNORMAL) Basic Metabolic Panel (11/01/2025 4:02 AM EST) Glucose 134(H) 65 - 99 mg/dL 11/01/2025 5:10 AM [facility] Comment:Fasting: <100 mg/dL, Non-Fasting: <200 mg/dL (ADA 2005) Blood Urea Nitrogen (BUN) 6(L) 8 - 21 mg/dL 11/01/2025 5:10 AM [facility] Creatinine 1.03 0.40 - 1.10 mg/dL 11/01/2025 5:10 AM [facility] eGFR 65 >59 11/01/2025 5:10 AM [facility] Comment:CKD-EPI (2020) in mL /min/1.73 sq meters. Sodium 142 136 - 145 mmol/L 11/01/2025 5:10 AM [facility] Potassium 4.1 3.4 - 5.3 mmol/L 11/01/2025 5:10 AM [facility] Chloride 108(H) 98 - 107 mmol/L 11/01/2025 5:10 AM [facility] CO2 24 22 - 33 mmol/L 11/01/2025 5:10 AM [facility] Anion Gap 10 7 - 17 11/01/2025 5:10 AM [facility] Calcium 7.9(L) 8.7 - 10.5 mg/dL 11/01/2025 5:10 AM [facility] BUN/Creatinine Ratio 6(L) 10.0 - 25.0 Ratio 11/01/2025 5:10 AM [facility] Blood Blood specimen / Unknown 11/01/2025 4:02 AM EST 11/01/2025 4:39 AM EST Lamin Cuenca MD LAB BLOOD ORDERABLES Final Result Performing Organization Address [facility] de Phone Number [address] [address], [address] [address] * (ABNORMAL) POCT Glucose, Fingerstick (11/01/2025 12:22 AM EST) POC Glucose 117(H) 65 - 99 mg/dL 11/01/2025 12:23 AM EST Blood specimen / Unknown 11/01/2025 12:22 AM EST 11/01/2025 12:23 AM EST Stanislav German MD POINT OF CARE TEST ORDERABLE S Final Result Performing Organization Address [facility] Co de Phone Number [facility] See Below * (ABNORMAL) POCT Glucose, Fingerstick (10/31/2025 8:13 PM EST) POC Glucose 250(H) 65 - 99 mg/dL 10/31/2025 8:13 PM EST Blood specimen / Unknown 10/31/2025 8:13 PM EST 10/31/2025 8:14 PM EST Stanislav German MD POINT OF CARE TEST ORDERABLE S Final Result Performing Organization Address City/[facility] Co de Phone Number [facility] See Below * (ABNORMAL) POCT Glucose, Fingerstick (10/31/2025 4:13 PM EST) POC Glucose 140(H) 65 - 99 mg/dL 10/31/2025 4:14 PM EST Blood specimen / Unknown 10/31/2025 4:13 PM EST 10/31/2025 4:14 PM EST us Stanislav German MD POINT OF CARE TEST ORDERABLE S Final Result HOSPITAL LAB See Below * CT Abdomen and Pelvis with IV Contrast w/PO (10/31/2025 2:57 PM EST) Anatomical Region Laterality Modality Abdomen, Pelvis Computed Tomogra phy 10/31/2025 2:34 PM EST Impressions 11/02/2025 2:26 PM EST * Loculated collection which occupies the medial and left lower abdomen/pelvis and has increased in size compared to prior exam, measuring approximately 7.8 x 10.8 x 10.9 cm (AP by TRV by cc), previously 6.3 x 6.8 x 4.9 cm when measured by similar technique, although the configuration of the collection makes it difficult to measure. No oral contrast within this collection to suggest fistula fistulous connection. Left lateral and right anterolateral approach surgical drains terminate within this collection at the level of the iliacus. * Right transgluteal approach surgical drain terminates within the presacral space in the region of the mesorectal fascia and likely within the perirectal collection, which is difficult to measure although appears intervally smaller compared to prior exam measuring 6.5 x 2.9 x 3.9 cm, previously 9.6 x 4.1 x 5.7 cm. No oral contrast within this collection to suggest fistulous connection. * Tiny locule of gas within the antidependent aspect of the bladder lumen; this can be seen with recent Petty catheterization. No contrast opacifies the bladder to suggest a fistula. Clinical correlation recommended. * Bilateral posterior approach percutaneous nephrostomy tube tips terminate within the bilateral renal pelves. Mild fullness of the right renal pelvis. No left-sided hydronephrosis. * Cardiomegaly, interlobular septal thickening, and a small left pleural effusion; findings are suggestive of CHF. Addendum: Right lower quadrant approach abdominal drain terminates within the left lower quadrant collection. The loculated collection in the left lower quadrant has increased in size and extent now measures 10.9 x 4.5 x 6.9 cm in the sagittal, AP and transverse dimensions. Overall this collection appears to have increased in size from recent CT dated 10/25/2025. Similar position of the left lower quadrant approach drain. Again noted presacral drain with interval decrease in the size of the presacral collection. The collection is difficult to measure and appears thick-walled with central foci of gas measuring approximately 4 x 3.3 cm, 3:541, previously measuring approximately 7.3 x 6.1 cm. Diffuse anasarca. Interpreted by: Liot Bhat MD Weed Control Inspector I personally reviewed the images and the resident's preliminary report and AGREE with the report as it is now presented ([email or web address]). Narrative 11/02/2025 2:26 PM EST EXAMINATION: CT ABDOMEN AND PELVIS WITH CONTRAST CLINICAL INFORMATION: multiple drains. rule out fistula and confirm infection pockets if improved. COMPARISON: CT abdomen/pelvis 10/25/2025, 10/22/2025, 10/08/2025. TECHNIQUE: Multidetector volumetric imaging was performed from the lung bases to the pubic symphysis following the administration of: Oral contrast: Yes Intravenous contrast: 80 mL Omnipaque 350 No contrast reaction reported. Sagittal and coronal reformatted images were obtained on the technologist's workstation. This CT examination was performed using dose optimization techniques as appropriate, variously including the following: *Automated exposure control *Adjustment of mA and/or kV according to patient size (this includes techniques or standardized protocols for targeted exams where dose is matched to indication/reason for exam; i.e. extremities or head) *Use of iterative reconstruction technique Total exam dose-length product 814.06 mGy-cm. FINDINGS: VISUALIZED CHEST: Small left pleural effusion with associated compressive atelectasis. Interlobular septal thickening at the bilateral lung bases. The heart is enlarged. LIVER, GALLBLADDER, AND BILIARY TREE: The liver is normal in size, shape, and attenuation. Ill-defined focal areas of hypoattenuation within the inferior aspect of the left hepatic lobe segment IVb, 3:203 and 227 adjacent to the falciform ligament are incompletely characterized and may represent focal fat infiltration, slightly increased in extent from prior CT dating back to 10/23/2019 No biliary ductal dilatation is present. Status post cholecystectomy. PANCREAS: No ductal dilation or surrounding fluid. SPLEEN: Normal size. No focal lesion. ADRENAL GLANDS: Unremarkable. KIDNEYS AND URETERS: The kidneys are normal in size, shape, and attenuation. Bilateral posterior approach percutaneous nephrostomy tube tips terminate within the bilateral renal pelvis. Mild fullness of the right renal pelvis. No left-sided hydronephrosis. GASTROINTESTINAL TRACT: Left lower quadrant ostomy. Mild thickening of the distal small bowel just proximal to entering into the ostomy site, likely reactive to surrounding inflammatory changes. The colon is underdistended. No evidence of fistulous connection to surrounding intra-abdominal collections. Stomach and small bowel are nondilated. Normal appendix. PERITONEUM/RETROPERITONEUM: Loculated collection which occupies the medial and left lower abdomen/pelvis and measures approximately 7.8 x 10.8 x 10.9 cm (AP by TRV by cc), previously 6.3 x 6.8 x 4.9 cm when measured by similar technique, although the configuration of the collection makes it difficult to measure. No oral contrast opacifies this collection to suggest a fistula. Left lateral and right anterolateral approach surgical drains tip terminates within the collection in the left hemipelvis at the level of the iliacus. No pneumoperitoneum. ABDOMINAL WALL: Postsurgical changes of anterior abdominal wall. Left lower quadrant ostomy. Posterolateral subcutaneous edema. Midline surgical wound in the lower anterior abdomen/pelvis LYMPHOVASCULAR STRUCTURES: Prominent retroperitoneal and pelvic lymph nodes, however not enlarged in size criteria. The aorta is normal in caliber. BLADDER: Tiny locule of gas within the antidependent aspect of the bladder lumen. No oral contrast opacifies the bladder to suggest a fistulous connection. No wall thickening. No bladder calculi. PELVIC VISCERA: Right transgluteal approach surgical drain terminates within the presacral space in the region of the mesorectal fascia and likely within the perirectal collection, which is difficult to measure although appears intervally smaller compared to prior exam measuring 6.5 x 2.9 x 3.9 cm, previously 9.6 x 4.1 x 5.7 cm. OSSEOUS STRUCTURES: No acute or suspicious osseous abnormality. Multilevel degenerative changes of the spine. Procedure Note Aric Edmondson MD - 11/02/2025 EXAMINATION: CT ABDOMEN AND PELVIS WITH CONTRAST CLINICAL INFORMATION: multiple drains. rule out fistula and confirm infection pockets if improved. COMPARISON: CT abdomen/pelvis 10/25/2025, 10/22/2025, 10/08/2025. TECHNIQUE: Multidetector volumetric imaging was performed from the lung bases to the pubic symphysis following the administration of: Oral contrast: Yes Intravenous contrast: 80 mL Omnipaque 350 No contrast reaction reported. Sagittal and coronal reformatted images were obtained on the technologist's workstation. This CT examination was performed using dose optimization techniques as appropriate, variously including the following: *Automated exposure control *Adjustment of mA and/or kV according to patient size (this includes techniques or standardized protocols for targeted exams where dose is matched to indication/reason for exam; i.e. extremities or head) *Use of iterative reconstruction technique Total exam dose-length product 814.06 mGy-cm. FINDINGS: VISUALIZED CHEST: Small left pleural effusion with associated compressive atelectasis. Interlobular septal thickening at the bilateral lung bases. The heart is enlarged. LIVER, GALLBLADDER, AND BILIARY TREE: The liver is normal in size, shape, and attenuation. Ill-defined focal areas of hypoattenuation within the inferior aspect of the left hepatic lobe segment IVb, 3:203 and 227 adjacent to the falciform ligament are incompletely characterized and may represent focal fat infiltration, slightly increased in extent from prior CT dating back to 10/23/2019 No biliary ductal dilatation is present. Status post cholecystectomy. PANCREAS: No ductal dilation or surrounding fluid. SPLEEN: Normal size. No focal lesion. ADRENAL GLANDS: Unremarkable. KIDNEYS AND URETERS: The kidneys are normal in size, shape, and attenuation. Bilateral posterior approach percutaneous nephrostomy tube tips terminate within the bilateral renal pelvis. Mild fullness of the right renal pelvis. No left-sided hydronephrosis. GASTROINTESTINAL TRACT: Left lower quadrant ostomy. Mild thickening of the distal small bowel just proximal to entering into the ostomy site, likely reactive to surrounding inflammatory changes. The colon is underdistended. No evidence of fistulous connection to surrounding intra-abdominal collections. Stomach and small bowel are nondilated. Normal appendix. PERITONEUM/RETROPERITONEUM: Loculated collection which occupies the medial and left lower abdomen/pelvis and measures approximately 7.8 x 10.8 x 10.9 cm (AP by TRV by cc), previously 6.3 x 6.8 x 4.9 cm when measured by similar technique, although the configuration of the collection makes it difficult to measure. No oral contrast opacifies this collection to suggest a fistula. Left lateral and right anterolateral approach surgical drains tip terminates within the collection in the left hemipelvis at the level of the iliacus. No pneumoperitoneum. ABDOMINAL WALL: Postsurgical changes of anterior abdominal wall. Left lower quadrant ostomy. Posterolateral subcutaneous edema. Midline surgical wound in the lower anterior abdomen/pelvis LYMPHOVASCULAR STRUCTURES: Prominent retroperitoneal and pelvic lymph nodes, however not enlarged in size criteria. The aorta is normal in caliber. BLADDER: Tiny locule of gas within the antidependent aspect of the bladder lumen. No oral contrast opacifies the bladder to suggest a fistulous connection. No wall thickening. No bladder calculi. PELVIC VISCERA: Right transgluteal approach surgical drain terminates within the presacral space in the region of the mesorectal fascia and likely within the perirectal collection, which is difficult to measure although appears intervally smaller compared to prior exam measuring 6.5 x 2.9 x 3.9 cm, previously 9.6 x 4.1 x 5.7 cm. OSSEOUS STRUCTURES: No acute or suspicious osseous abnormality. Multilevel degenerative changes of the spine. IMPRESSION: * Loculated collection which occupies the medial and left lower abdomen/pelvis and has increased in size compared to prior exam, measuring approximately 7.8 x 10.8 x 10.9 cm (AP by TRV by cc), previously 6.3 x 6.8 x 4.9 cm when measured by similar technique, although the configuration of the collection makes it difficult to measure. No oral contrast within this collection to suggest fistula fistulous connection. Left lateral and right anterolateral approach surgical drains terminate within this collection at the level of the iliacus. * Right transgluteal approach surgical drain terminates within the presacral space in the region of the mesorectal fascia and likely within the perirectal collection, which is difficult to measure although appears intervally smaller compared to prior exam measuring 6.5 x 2.9 x 3.9 cm, previously 9.6 x 4.1 x 5.7 cm. No oral contrast within this collection to suggest fistulous connection. * Tiny locule of gas within the antidependent aspect of the bladder lumen; this can be seen with recent Petty catheterization. No contrast opacifies the bladder to suggest a fistula. Clinical correlation recommended. * Bilateral posterior approach percutaneous nephrostomy tube tips terminate within the bilateral renal pelves. Mild fullness of the right renal pelvis. No left-sided hydronephrosis. * Cardiomegaly, interlobular septal thickening, and a small left pleural effusion; findings are suggestive of CHF. Addendum: Right lower quadrant approach abdominal drain terminates within the left lower quadrant collection. The loculated collection in the left lower quadrant has increased in size and extent now measures 10.9 x 4.5 x 6.9 cm in the sagittal, AP and transverse dimensions. Overall this collection appears to have increased in size from recent CT dated 10/25/2025. Similar position of the left lower quadrant approach drain. Again noted presacral drain with interval decrease in the size of the presacral collection. The collection is difficult to measure and appears thick-walled with central foci of gas measuring approximately 4 x 3.3 cm, 3:541, previously measuring approximately 7.3 x 6.1 cm. Diffuse anasarca. Interpreted by: Lito Bhat MD Weed Control Inspector I personally reviewed the images and the resident's preliminary report and AGREE with the report as it is now presented ([id number]). Eddie Alicia MD IMG CT ORDERABLES Final Result * (ABNORMAL) POCT Glucose, Fingerstick (10/31/2025 11:58 AM EST) POC Glucose 222(H) 65 - 99 mg/dL 10/31/2025 11:59 AM EST Blood specimen / Unknown 10/31/2025 11:58 AM EST 10/31/2025 11:59 AM EST Stanislav German MD POINT OF CARE TEST ORDERABLE S Final Result HOSPITAL LAB See Below * (ABNORMAL) POCT Glucose, Fingerstick (10/31/2025 7:52 AM EST) POC Glucose 131(H) 65 - 99 mg/dL 10/31/2025 7:53 AM EST Blood specimen / Unknown 10/31/2025 7:52 AM EST 10/31/2025 7:53 AM EST Stanislav German MD POINT OF CARE TEST ORDERABLE S Final Result HOSPITAL LAB See Below * (ABNORMAL) Basic Metabolic Panel (10/31/2025 7:29 AM EST) Glucose 126(H) 65 - 99 mg/dL 10/31/2025 8:42 AM [facility] Comment:Fasting: <100 mg/dL, Non-Fasting: <200 mg/dL (ADA 2005) Blood Urea Nitrogen (BUN) 4(L) 8 - 21 mg/dL 10/31/2025 8:42 AM [facility] Creatinine 0.98 0.40 - 1.10 mg/dL 10/31/2025 8:42 AM [facility] eGFR 69 >59 10/31/2025 8:42 AM [facility] Comment:CKD-EPI (2020) in mL /min/1.73 sq meters. Sodium 142 136 - 145 mmol/L 10/31/2025 8:42 AM [facility] Potassium 3.5 3.4 - 5.3 mmol/L 10/31/2025 8:42 AM [facility] Chloride 106 98 - 107 mmol/L 10/31/2025 8:42 AM [facility] CO2 24 22 - 33 mmol/L 10/31/2025 8:42 AM [facility] Anion Gap 12 7 - 17 10/31/2025 8:42 AM [facility] Calcium 8.0(L) 8.7 - 10.5 mg/dL 10/31/2025 8:42 AM [facility] BUN/Creatinine Ratio 4(L) 10.0 - 25.0 Ratio 10/31/2025 8:42 AM [facility] Blood Blood specimen / Unknown 10/31/2025 7:29 AM EST 10/31/2025 8:14 AM EST Eddie Alicia MD LAB BLOOD ORDERABLES Final Resul t Performing Organization Address City/[facility]/[place] [address], [place] [address] * (ABNORMAL) COMPLETE BLOOD COUNT, WITHOUT DIFFERENTIAL (10/31/2025 7:29 AM EST) White Blood Cell Count 27.0(H) 4.0 - 11.0 Thou/uL 10/31/2025 8:31 AM [facility] Platelet Count 504(H) 150 - 450 Thou/uL 10/31/2025 8:31 AM [facility] Hemoglobin 9.1(L) 11.7 - 15.7 g/dL 10/31/2025 8:31 AM [facility] Hematocrit 28.4(L) 35.0 - 47.0 % 10/31/2025 8:31 AM [facility] Red Blood Cell Count 3.42(L) 4.00 - 5.40 Mil/uL 10/31/2025 8:31 AM [facility] MCV 83 80 - 100 fL 10/31/2025 8:31 AM [facility] MCH 26.6(L) 27.0 - 31.0 pg 10/31/2025 8:31 AM [facility] MCHC 32.0 30.0 - 36.0 g/dL 10/31/2025 8:31 AM [facility] RDW 18.0(H) 11.5 - 14.5 % 10/31/2025 8:31 AM [facility] MPV 9.6 7.5 - 12.5 fL 10/31/2025 8:31 AM [facility] nRBC 0.1 0.0 - 0.1 /100 WBC 10/31/2025 8:31 AM [facility] nRBC, Absolute 0.02 0.00 - 0.02 Thou/uL 10/31/2025 8:31 AM [facility] Blood Blood specimen / Unknown 10/31/2025 7:29 AM EST 10/31/2025 8:14 AM EST us Eddie Alicia MD LAB BLOOD ORDERABLES Final Resul t [address] [address], [address] [address] * Magnesium (10/31/2025 7:29 AM EST) Magnesium 1.6 1.6 - 2.7 mg/dL 10/31/2025 8:42 AM EST [facility] Blood Blood specimen / Unknown 10/31/2025 7:29 AM EST 10/31/2025 8:14 AM EST us Eddie Alicia MD LAB BLOOD ORDERABLES Final Resul t Performing Organization Address [facility]/[place] [address], [place] [address] * Phosphorus (10/31/2025 7:29 AM EST) Pathologist [facility] Phosphorus 2.7 2.7 - 4.5 mg/dL 10/31/2025 8:42 AM EST [facility] Blood Blood specimen / Unknown 10/31/2025 7:29 AM EST 10/31/2025 8:14 AM EST us Eddie Alicia MD LAB BLOOD ORDERABLES Final Resul t Performing Organization Address [facility] [place] [address], [place] [address] * (ABNORMAL) POCT Glucose, Fingerstick (10/30/2025 8:36 PM EST) Pathologist [facility] POC Glucose 266(H) 65 - 99 mg/dL 10/30/2025 8:36 PM EST Blood specimen / Unknown 10/30/2025 8:36 PM EST 10/30/2025 8:37 PM EST us Stanislav German MD POINT OF CARE TEST ORDERABLE S Final Result [facility]PITAL LAB See Below * (ABNORMAL) POCT Glucose, Fingerstick (10/30/2025 5:17 PM EST) POC Glucose 123(H) 65 - 99 mg/dL 10/30/2025 5:20 PM EST Blood specimen / Unknown 10/30/2025 5:17 PM EST 10/30/2025 5:20 PM EST us Stanislav German MD POINT OF CARE TEST ORDERABLE S Final Result [facility] See Below * (ABNORMAL) POCT Glucose, Fingerstick (10/30/2025 12:31 PM EST) POC Glucose 301(H) 65 - 99 mg/dL 10/30/2025 12:32 PM EST Blood specimen / Unknown 10/30/2025 12:31 PM EST 10/30/2025 12:32 PM EST us Stanislav German MD POINT OF CARE TEST ORDERABLE S Final Result Performing Organization Address [facility] de Phone Number [facility] See Below * (ABNORMAL) POCT Glucose, Fingerstick (10/30/2025 12:18 PM EST) POC Glucose 330(H) 65 - 99 mg/dL 10/30/2025 12:25 PM EST Blood specimen / Unknown 10/30/2025 12:18 PM EST 10/30/2025 12:23 PM EST us Stanislav German MD POINT OF CARE TEST ORDERABLE S Final Result [facility]ITAL [facility] See Below * (ABNORMAL) POCT Glucose, Fingerstick (10/30/2025 8:09 AM EST) POC Glucose 127(H) 65 - 99 mg/dL 10/30/2025 8:14 AM EST Blood specimen / Unknown 10/30/2025 8:09 AM EST 10/30/2025 8:14 AM EST us Stanislav German MD POINT OF CARE TEST ORDERABLE S Final Result [facility]ITAL [facility] See Below * Phosphorus (10/30/2025 7:28 AM EST) Phosphorus 2.7 2.7 - 4.5 mg/dL 10/30/2025 8:28 AM [facility] Blood Blood specimen / Unknown 10/30/2025 7:28 AM EST 10/30/2025 7:51 AM EST us Eddie Alicia MD LAB BLOOD ORDERABLES Final Resul t Performing Organization Address City/[facility]/[place] [address], [place] [address] * Magnesium (10/30/2025 7:28 AM EST) Magnesium 1.8 1.6 - 2.7 mg/dL 10/30/2025 8:28 AM [facility] Blood Blood specimen / Unknown 10/30/2025 7:28 AM EST 10/30/2025 7:51 AM EST us Eddie Alicia MD LAB BLOOD ORDERABLES Final Resul t Performing Organization Address [facility] [place] [address], [place] [address] * (ABNORMAL) Basic Metabolic Panel (10/30/2025 7:28 AM EST) Glucose 138(H) 65 - 99 mg/dL 10/30/2025 8:28 AM [facility] Comment:Fasting: <100 mg/dL, Non-Fasting: <200 mg/dL (ADA 2005) Blood Urea Nitrogen (BUN) 3(L) 8 - 21 mg/dL 10/30/2025 8:28 AM [facility] Creatinine 0.88 0.40 - 1.10 mg/dL 10/30/2025 8:28 AM [facility] eGFR 79 >59 10/30/2025 8:28 AM [facility] Comment:CKD-EPI (2020) in mL /min/1.73 sq meters. Sodium 139 136 - 145 mmol/L 10/30/2025 8:28 AM [facility] Potassium 3.8 3.4 - 5.3 mmol/L 10/30/2025 8:28 AM [facility] Chloride 105 98 - 107 mmol/L 10/30/2025 8:28 AM [facility] CO2 25 22 - 33 mmol/L 10/30/2025 8:28 AM [facility] Anion Gap 9 7 - 17 10/30/2025 8:28 AM [facility] Calcium 7.7(L) 8.7 - 10.5 mg/dL 10/30/2025 8:28 AM [facility] BUN/Creatinine Ratio 3(L) 10.0 - 25.0 Ratio 10/30/2025 8:28 AM [facility] Blood Blood specimen / Unknown 10/30/2025 7:28 AM EST 10/30/2025 7:51 AM EST Eddie Alicia MD LAB BLOOD [place] [address], [place] [address] * (ABNORMAL) COMPLETE BLOOD COUNT, WITHOUT DIFFERENTIAL (10/30/2025 7:28 AM EST) White Blood Cell Count 35.4(HH) 4.0 - 11.0 Thou/uL 10/30/2025 8:32 AM [facility] Comment:Recurring Critical R esult. Previously phoned. Platelet Count 461(H) 150 - 450 Thou/uL 10/30/2025 8:32 AM [facility] Hemoglobin 9.2(L) 11.7 - 15.7 g/dL 10/30/2025 8:32 AM [facility] Hematocrit 28.2(L) 35.0 - 47.0 % 10/30/2025 8:32 AM [facility] Red Blood Cell Count 3.45(L) 4.00 - 5.40 Mil/uL 10/30/2025 8:32 AM [facility] MCV 82 80 - 100 fL 10/30/2025 8:32 AM [facility] MCH 26.7(L) 27.0 - 31.0 pg 10/30/2025 8:32 AM [facility] MCHC 32.6 30.0 - 36.0 g/dL 10/30/2025 8:32 AM [facility] RDW 17.3(H) 11.5 - 14.5 % 10/30/2025 8:32 AM [facility] MPV 9.3 7.5 - 12.5 fL 10/30/2025 8:32 AM [facility] nRBC 0.1 0.0 - 0.1 /100 WBC 10/30/2025 8:32 AM [facility] nRBC, Absolute 0.02 0.00 - 0.02 Thou/uL 10/30/2025 8:32 AM [facility] Blood Blood specimen / Unknown 10/30/2025 7:28 AM EST 10/30/2025 7:51 AM EST Eddie Alicia MD LAB [place]LOOD [place] [address], [place] [address] * (ABNORMAL) POCT Glucose, Fingerstick (10/29/2025 9:27 PM EST) POC Glucose 171(H) 65 - 99 mg/dL 10/29/2025 9:31 PM EST Blood specimen / Unknown 10/29/2025 9:27 PM EST 10/29/2025 9:31 PM EST Stanislav German MD POINT OF CARE TEST ORDERABLE S Final Result HOSPITAL LAB See Below * (ABNORMAL) POCT Glucose, Fingerstick (10/29/2025 5:07 PM EST) POC Glucose 183(H) 65 - 99 mg/dL 10/29/2025 5:08 PM EST Blood specimen / Unknown 10/29/2025 5:07 PM EST 10/29/2025 5:08 PM EST us Stanislav German MD POINT OF CARE TEST ORDERABLE S Final Result Performing Organization Address [facility] Phone Number [facility] See Below * (ABNORMAL) POCT Glucose, Fingerstick (10/29/2025 11:53 AM EST) POC Glucose 190(H) 65 - 99 mg/dL 10/29/2025 11:55 AM EST Blood specimen / Unknown 10/29/2025 11:53 AM EST 10/29/2025 11:55 AM EST us Stanislav German MD POINT OF CARE TEST ORDERABLE S Final Result Performing Organization Address [facility] Phone Number [facility] See Below * (ABNORMAL) POCT Glucose, Fingerstick (10/29/2025 8:26 AM EST) POC Glucose 130(H) 65 - 99 mg/dL 10/29/2025 8:27 AM EST Blood specimen / Unknown 10/29/2025 8:26 AM EST 10/29/2025 8:27 AM EST Stanislav German MD POINT OF CARE TEST ORDERABLE S Final Result Performing Organization Address [facility] Phone Number [facility] See Below * (ABNORMAL) Phosphorus (10/29/2025 7:29 AM EST) Phosphorus 2.2(L) 2.7 - 4.5 mg/dL 10/29/2025 9:16 AM EST [facility] Blood Blood specimen / Unknown 10/29/2025 7:29 AM EST 10/29/2025 8:19 AM EST Eddie Alicia MD LAB BLOOD ORDERABLES Final Resul t Performing Organization Address [facility] [place] [address], [place] [address] * Magnesium (10/29/2025 7:29 AM EST) Magnesium 1.6 1.6 - 2.7 mg/dL 10/29/2025 9:16 AM [facility] Blood Blood specimen / Unknown 10/29/2025 7:29 AM EST 10/29/2025 8:19 AM EST us Eddie Alicia MD LAB [place]LOOD [place] [address], [place] [address] * (ABNORMAL) Basic Metabolic Panel (10/29/2025 7:29 AM EST) Glucose 119(H) 65 - 99 mg/dL 10/29/2025 9:16 AM [facility] Comment:Fasting: <100 mg/dL, Non-Fasting: <200 mg/dL (ADA 2005) Blood Urea Nitrogen (BUN) 5(L) 8 - 21 mg/dL 10/29/2025 9:16 AM [facility] Creatinine 0.91 0.40 - 1.10 mg/dL 10/29/2025 9:16 AM [facility] eGFR 75 >59 10/29/2025 9:16 AM [facility] Comment:CKD-EPI (2020) in mL /min/1.73 sq meters. Sodium 141 136 - 145 mmol/L 10/29/2025 9:16 AM [facility] Potassium 3.5 3.4 - 5.3 mmol/L 10/29/2025 9:16 AM [facility] Chloride 106 98 - 107 mmol/L 10/29/2025 9:16 AM [facility] CO2 25 22 - 33 mmol/L 10/29/2025 9:16 AM [facility] Anion Gap 10 7 - 17 10/29/2025 9:16 AM [facility] Calcium 7.1(L) 8.7 - 10.5 mg/dL 10/29/2025 9:16 AM [facility] BUN/Creatinine Ratio 5(L) 10.0 - 25.0 Ratio 10/29/2025 9:16 AM [facility] Blood Blood specimen / Unknown 10/29/2025 7:29 AM EST 10/29/2025 8:19 AM EST us Eddie Alicia MD LAB BLOOD ORDERABLES Final Resul t Performing Organization Address City/State/[facility] Co de Phone Number [facility] [address] [place] [address], [address] [address] * (ABNORMAL) COMPLETE BLOOD COUNT, WITHOUT DIFFERENTIAL (10/29/2025 7:29 AM EST) White Blood Cell Count 33.0(HH) 4.0 - 11.0 Thou/uL 10/29/2025 8:43 AM [facility] Comment:Recurring Critical R esult. Previously phoned. Platelet Count 426 150 - 450 Thou/uL 10/29/2025 8:43 AM [facility] Hemoglobin 8.8(L) 11.7 - 15.7 g/dL 10/29/2025 8:43 AM [facility] Hematocrit 27.3(L) 35.0 - 47.0 % 10/29/2025 8:43 AM [facility] Red Blood Cell Count 3.30(L) 4.00 - 5.40 Mil/uL 10/29/2025 8:43 AM [facility] MCV 83 80 - 100 fL 10/29/2025 8:43 AM [facility] MCH 26.7(L) 27.0 - 31.0 pg 10/29/2025 8:43 AM [facility] MCHC 32.2 30.0 - 36.0 g/dL 10/29/2025 8:43 AM [facility] RDW 17.2(H) 11.5 - 14.5 % 10/29/2025 8:43 AM [facility] MPV 9.5 7.5 - 12.5 fL 10/29/2025 8:43 AM [facility] nRBC 0.1 0.0 - 0.1 /100 WBC 10/29/2025 8:43 AM [facility] nRBC, Absolute 0.02 0.00 - 0.02 Thou/uL 10/29/2025 8:43 AM EST [facility] Blood Blood specimen / Unknown 10/29/2025 7:29 AM EST 10/29/2025 8:19 AM EST Eddie Alicia MD LAB BLOOD ORDERABLES Final Resul t Performing Organization Address [facility] Co de Phone Number [address] [address], [address] [address] * (ABNORMAL) POCT Glucose, Fingerstick (10/29/2025 3:56 AM EST) POC Glucose 136(H) 65 - 99 mg/dL 10/29/2025 3:56 AM EST Blood specimen / Unknown 10/29/2025 3:56 AM EST 10/29/2025 3:57 AM EST Stanislav German MD POINT OF CARE TEST ORDERABLE S Final Result Performing Organization Address [facility] Co de Phone Number [facility] See Below * (ABNORMAL) POCT Glucose, Fingerstick (10/29/2025 12:52 AM EST) POC Glucose 151(H) 65 - 99 mg/dL 10/29/2025 12:52 AM EST Blood specimen / Unknown 10/29/2025 12:52 AM EST 10/29/2025 12:53 AM EST Stanislav German MD POINT OF CARE TEST ORDERABLE S Final Result Performing Organization Address City/[facility] Co de Phone Number [facility] See Below * (ABNORMAL) POCT Glucose, Fingerstick (10/28/2025 9:06 PM EST) POC Glucose 198(H) 65 - 99 mg/dL 10/28/2025 9:06 PM EST Blood specimen / Unknown 10/28/2025 9:06 PM EST 10/28/2025 9:07 PM EST Stanislav German MD POINT OF CARE TEST ORDERABLE S Final Result [facility]OSPITAL LAB See Below * (ABNORMAL) POCT Glucose, Fingerstick (10/28/2025 4:37 PM EST) POC Glucose 176(H) 65 - 99 mg/dL 10/28/2025 5:36 PM EST Blood specimen / Unknown 10/28/2025 4:37 PM EST 10/28/2025 5:36 PM EST Stanislav German MD POINT OF CARE TEST ORDERABLE S Final Result Performing Organization Address City/[facility] Co de Phone Number HOSPITAL LAB See Below * Prepare RBC's:Prepare in: Units; Number of Units: 1; Transfusion Indications: Hemoglobin greater than 7 gm/dl or HCT greater than 21% but Acute blood loss greater than 500 ml and symptoms not corrected by volume (10/28/2025 1:02 PM EST) Units Ordered 1 10/28/2025 1:01 PM EST [facility] 10/28/2025 1:02 PM EST 10/28/2025 1:21 PM EST Eddie Alicia MD BLOOD BANK PRODUCT ORDERABLES Fi nal Result Performing Organization Address [facility] [place] [address], [place] [address] * (ABNORMAL) POCT Glucose, Fingerstick (10/28/2025 12:17 PM EST) POC Glucose 185(H) 65 - 99 mg/dL 10/28/2025 12:18 PM EST Blood specimen / Unknown 10/28/2025 12:17 PM EST 10/28/2025 12:18 PM EST us Stanislav German MD POINT OF CARE TEST ORDERABLE S Final Result Performing Organization Address City/[facility] Co de Phone Number [facility]PITAL LAB See Below * (ABNORMAL) POCT Glucose, Fingerstick (10/28/2025 8:33 AM EST) POC Glucose 144(H) 65 - 99 mg/dL 10/28/2025 8:33 AM EST Blood specimen / Unknown 10/28/2025 8:33 AM EST 10/28/2025 8:34 AM EST Stanislav German MD POINT OF CARE TEST ORDERABLE S Final Result Performing Organization Address [facility] Phone Number HOSPITAL LAB See Below * (ABNORMAL) TSH, HIGHLY SENSITIVE (10/28/2025 6:48 AM EST) Pathologist [facility] TSH, Highly Sensitive 31.50(H) 0.27 - 4.20 mIU/L 10/28/2025 1:56 PM EST [facility] 10/28/2025 6:48 AM EST 10/28/2025 7:10 AM EST us Eddie Alicia MD LAB BLOOD ORDERABLES Final Resul t Performing Organization Address [facility] [place] [address], [place] [address] * (ABNORMAL) Phosphorus (10/28/2025 6:48 AM EST) Pathologist [facility] Phosphorus 1.9(L) 2.7 - 4.5 mg/dL 10/28/2025 7:42 AM EST [facility] Blood Blood specimen / Unknown 10/28/2025 6:48 AM EST 10/28/2025 7:10 AM EST us Eddie Alicia MD LAB BLOOD ORDERABLES Final Resul t Performing Organization Address [facility] [place] [address], [address] [place] [address] * (ABNORMAL) Magnesium (10/28/2025 6:48 AM EST) Magnesium 1.3(L) 1.6 - 2.7 mg/dL 10/28/2025 7:42 AM [facility] Blood Blood specimen / Unknown 10/28/2025 6:48 AM EST 10/28/2025 7:10 AM EST us Eddie Alicia MD LAB BLOOD ORDERABLES Final Resul t [address] [address], [address] [address] * (ABNORMAL) COMPLETE BLOOD COUNT, WITHOUT DIFFERENTIAL (10/28/2025 6:48 AM EST) White Blood Cell Count 31.4(HH) 4.0 - 11.0 Thou/uL 10/28/2025 7:23 AM [facility] Comment:Recurring Critical R esult. Previously phoned. Platelet Count 402 150 - 450 Thou/uL 10/28/2025 7:23 AM [facility] Hemoglobin 7.1(L) 11.7 - 15.7 g/dL 10/28/2025 7:23 AM [facility] Hematocrit 22.0(L) 35.0 - 47.0 % 10/28/2025 7:23 AM [facility] Red Blood Cell Count 2.72(L) 4.00 - 5.40 Mil/uL 10/28/2025 7:23 AM [facility] MCV 81 80 - 100 fL 10/28/2025 7:23 AM [facility] MCH 26.1(L) 27.0 - 31.0 pg 10/28/2025 7:23 AM [facility] MCHC 32.3 30.0 - 36.0 g/dL 10/28/2025 7:23 AM [facility] RDW 16.5(H) 11.5 - 14.5 % 10/28/2025 7:23 AM [facility] MPV 9.6 7.5 - 12.5 fL 10/28/2025 7:23 AM [facility] nRBC 0.1 0.0 - 0.1 /100 WBC 10/28/2025 7:23 AM [facility] nRBC, Absolute 0.04(H) 0.00 - 0.02 Thou/uL 10/28/2025 7:23 AM [facility] Blood Blood specimen / Unknown 10/28/2025 6:48 AM EST 10/28/2025 7:10 AM EST us Eddie Alicia MD LAB BLOOD [place] [address], [place] [address] * (ABNORMAL) Basic Metabolic Panel (10/28/2025 6:48 AM EST) Glucose 125(H) 65 - 99 mg/dL 10/28/2025 7:42 AM [facility] Comment:Fasting: <100 mg/dL, Non-Fasting: <200 mg/dL (ADA 2005) Blood Urea Nitrogen (BUN) 6(L) 8 - 21 mg/dL 10/28/2025 7:42 AM [facility] Creatinine 1.08 0.40 - 1.10 mg/dL 10/28/2025 7:42 AM [facility] eGFR 61 >59 10/28/2025 7:42 AM [facility] Comment:CKD-EPI (2020) in mL /min/1.73 sq meters. Sodium 143 136 - 145 mmol/L 10/28/2025 7:42 AM [facility] Potassium 3.3(L) 3.4 - 5.3 mmol/L 10/28/2025 7:42 AM [facility] Chloride 108(H) 98 - 107 mmol/L 10/28/2025 7:42 AM [facility] CO2 26 22 - 33 mmol/L 10/28/2025 7:42 AM [facility] Anion Gap 9 7 - 17 10/28/2025 7:42 AM [facility] Calcium 7.3(L) 8.7 - 10.5 mg/dL 10/28/2025 7:42 AM [facility] BUN/Creatinine Ratio 6(L) 10.0 - 25.0 Ratio 10/28/2025 7:42 AM [facility] Blood Blood specimen / Unknown 10/28/2025 6:48 AM EST 10/28/2025 7:10 AM EST us Eddie Alicia MD LAB BLOOD ORDERABLES Final Resul t [address] [address], [place] [address] * (ABNORMAL) COMPLETE BLOOD COUNT, WITHOUT DIFFERENTIAL (10/28/2025 6:16 AM EST) White Blood Cell Count 32.3(HH) 4.0 - 11.0 Thou/uL 10/28/2025 8:33 AM [facility] Comment:Recurring Critical R esult. Previously phoned. Platelet Count 450 150 - 450 Thou/uL 10/28/2025 8:33 AM [facility] Hemoglobin 7.5(L) 11.7 - 15.7 g/dL 10/28/2025 8:33 AM [facility] Hematocrit 23.9(L) 35.0 - 47.0 % 10/28/2025 8:33 AM [facility] Red Blood Cell Count 2.91(L) 4.00 - 5.40 Mil/uL 10/28/2025 8:33 AM [facility] MCV 82 80 - 100 fL 10/28/2025 8:33 AM [facility] MCH 25.8(L) 27.0 - 31.0 pg 10/28/2025 8:33 AM [facility] MCHC 31.4 30.0 - 36.0 g/dL 10/28/2025 8:33 AM [facility] RDW 16.8(H) 11.5 - 14.5 % 10/28/2025 8:33 AM [facility] MPV 9.9 7.5 - 12.5 fL 10/28/2025 8:33 AM [facility] nRBC 0.1 0.0 - 0.1 /100 WBC 10/28/2025 8:33 AM [facility] nRBC, Absolute 0.03(H) 0.00 - 0.02 Thou/uL 10/28/2025 8:33 AM EST [facility] Blood Blood specimen / Unknown 10/28/2025 6:16 AM EST 10/28/2025 7:45 AM EST us Alek Benitez MD LAB BLOOD ORDERABLES Final Resul t Performing Organization Address [facility] [place] [address], [place] [address] * (ABNORMAL) POCT Glucose, Fingerstick (10/28/2025 5:48 AM EST) POC Glucose 135(H) 65 - 99 mg/dL 10/28/2025 5:49 AM EST Blood specimen / Unknown 10/28/2025 5:48 AM EST 10/28/2025 5:49 AM EST Stanislav German MD POINT OF CARE TEST ORDERABLE S Final Result Performing Organization Address [facility] Co de Phone Number [facility] See Below * (ABNORMAL) POCT Glucose, Fingerstick (10/28/2025 1:01 AM EST) POC Glucose 128(H) 65 - 99 mg/dL 10/28/2025 1:02 AM EST Blood specimen / Unknown 10/28/2025 1:01 AM EST 10/28/2025 1:02 AM EST Stanislav German MD POINT OF CARE TEST ORDERABLE S Final Result Performing Organization Address City/[facility] Co de Phone Number [facility] See Below * (ABNORMAL) POCT Glucose, Fingerstick (10/27/2025 8:48 PM EST) POC Glucose 122(H) 65 - 99 mg/dL 10/27/2025 8:53 PM EST Blood specimen / Unknown 10/27/2025 8:48 PM EST 10/27/2025 8:53 PM EST Result [facility] Stanislav German MD POINT OF CARE TEST ORDERABLE S Final Result HOSPITAL [facility] See Below * (ABNORMAL) POCT Glucose, Fingerstick (10/27/2025 5:11 PM EST) POC Glucose 195(H) 65 - 99 mg/dL 10/27/2025 5:16 PM EST Blood specimen / Unknown 10/27/2025 5:11 PM EST 10/27/2025 5:16 PM EST Result [facility] Stanislav Geramn MD POINT OF CARE TEST ORDERABLE S Final Result Performing Organization Address City/[facility] Co de Phone Number HOSPITAL LAB See Below * Transfuse RBC's:Transfusion Indications: Hemoglobin greater than 7 gm/dl or HCT greater than 21% but Acute blood loss greater than 500 ml and symptoms not corrected by volume, Hemoglobin less than 7 gm/dl or HCT less than 21%; Transfusion duration... (10/27/2025 4:33 PM EST) Result [facility] Eddie Alicia MD BLOOD TRANSFUSION ORDERABLES Fin al Result * Transfuse RBC's:Transfusion Indications: Hemoglobin greater than 7 gm/dl or HCT greater than 21% but Acute blood loss greater than 500 ml and symptoms not corrected by volume, Hemoglobin less than 7 gm/dl or HCT less than 21%; Transfusion duration... (10/27/2025 4:33 PM EST) Result Avinash Alicia MD BLOOD TRANSFUSION ORDERABLES Fin al Result * (ABNORMAL) Hemoglobin and Hematocrit (10/27/2025 1:17 PM EST) Hematocrit 21.0(L) 35.0 - 47.0 % 10/27/2025 2:50 PM EST [facility] Hemoglobin 6.4(L) 11.7 - 15.7 g/dL 10/27/2025 2:50 PM EST [facility] Blood Blood specimen / Unknown 10/27/2025 1:17 PM EST 10/27/2025 2:20 PM EST us Brandi Clifford MD LAB BLOOD ORDERABLES Final Result Performing Organization Address [facility]/[place] [address], [place] [address] * (ABNORMAL) POCT Glucose, Fingerstick (10/27/2025 11:49 AM EST) POC Glucose 177(H) 65 - 99 mg/dL 10/27/2025 11:50 AM EST Blood specimen / Unknown 10/27/2025 11:49 AM EST 10/27/2025 11:50 AM EST us Stanislav German MD POINT OF CARE TEST ORDERABLE S Final Result Performing Organization Address City/[facility]/ZIP Co de Phone Number HOSPITAL LAB See Below * Type and Screen (10/27/2025 11:41 AM EST) ABO/Rh O NEGATIVE 10/27/2025 1:26 PM [facility] Antibody Screen NEGATIVE 10/27/2025 1:26 PM [facility] Specimen Expiration 10/30/2025 10/27/2025 1:26 PM [facility] Unit Number [id number] 10/27/2025 1:45 PM [facility] Blood Component Type LR RBC CONTAINER 2 10/27/2025 1:45 PM [facility] Unit Division 00 10/27/2025 1:45 PM [facility] Unit Status ISSUED,FINAL 10/28/2025 12:16 AM [facility] Transfusion Status OK TO TRANSFUSE 10/27/2025 1:45 PM [facility] Crossmatch Result Electronically Compatible 10/27/2025 1:45 PM [facility] Unit Number [id number] 10/28/2025 1:22 PM [facility] Blood Component Type LEUKOREDUCED RED CELLS 10/28/2025 1:22 PM [facility] Unit Division 00 10/28/2025 1:22 PM [facility] Unit Status ISSUED,FINAL 10/29/2025 12:09 AM [facility] Transfusion Status OK TO TRANSFUSE 10/28/2025 1:22 PM [facility] Crossmatch Result Electronically Compatible 10/28/2025 1:22 PM [facility] Blood Blood specimen / Unknown 10/27/2025 11:41 AM EST 10/27/2025 12:25 PM EST Comment:Blood us Eddie Alicia MD BLOOD BANK TEST ORDERABLES Final Result Performing Organization Address City/[facility]/ZIP Co de Phone Number HOSPITAL [place] [address] * Prepare RBC's:Prepare in: Units; Number of Units: 1; Transfusion Indications: Hemoglobin greater than 7 gm/dl or HCT greater than 21% but Acute blood loss greater than 500 ml and symptoms not corrected by volume, Hemoglobin less than 7 gm/dl or HC... (10/27/2025 11:30 AM EST) Units Ordered 1 10/27/2025 11:30 AM [facility] 10/27/2025 11:3 0 AM EST 10/27/2025 1:44 PM EST us Eddie Alicia MD BLOOD BANK PRODUCT ORDERABLES Fi nal Result Performing Organization Address [facility] [place] [address], [place] [address] * (ABNORMAL) Basic Metabolic Panel (10/27/2025 7:54 AM EST) Glucose 126(H) 65 - 99 mg/dL 10/27/2025 8:50 AM [facility] Comment:Fasting: <100 mg/dL, Non-Fasting: <200 mg/dL (ADA 2005) Blood Urea Nitrogen (BUN) 9 8 - 21 mg/dL 10/27/2025 8:50 AM [facility] Creatinine 1.26(H) 0.40 - 1.10 mg/dL 10/27/2025 8:50 AM [facility] eGFR 51(L) >59 10/27/2025 8:50 AM [facility] Comment:CKD-EPI (2020) in mL /min/1.73 sq meters. Sodium 149(H) 136 - 145 mmol/L 10/27/2025 8:50 AM [facility] Potassium 3.4 3.4 - 5.3 mmol/L 10/27/2025 8:50 AM [facility] Chloride 113(H) 98 - 107 mmol/L 10/27/2025 8:50 AM [facility] CO2 23 22 - 33 mmol/L 10/27/2025 8:50 AM [facility] Anion Gap 13 7 - 17 10/27/2025 8:50 AM [facility] Calcium 8.0(L) 8.7 - 10.5 mg/dL 10/27/2025 8:50 AM [facility] BUN/Creatinine Ratio 7(L) 10.0 - 25.0 Ratio 10/27/2025 8:50 AM [facility] Blood Blood specimen / Unknown 10/27/2025 7:54 AM EST 10/27/2025 8:09 AM EST us Eddie Alicia MD LAB BLOOD ORDERABLES Final Resul t Performing Organization Address City/State/[facility] [place] [address], [place] [address] * (ABNORMAL) COMPLETE BLOOD COUNT, WITHOUT DIFFERENTIAL (10/27/2025 7:54 AM EST) White Blood Cell Count 33.9(HH) 4.0 - 11.0 Thou/uL 10/27/2025 8:45 AM [facility] Comment:Recurring Critical R esult. Previously phoned. Platelet Count 452(H) 150 - 450 Thou/uL 10/27/2025 8:45 AM [facility] Hemoglobin 6.5(L) 11.7 - 15.7 g/dL 10/27/2025 8:45 AM [facility] Hematocrit 20.8(L) 35.0 - 47.0 % 10/27/2025 8:45 AM [facility] Red Blood Cell Count 2.57(L) 4.00 - 5.40 Mil/uL 10/27/2025 8:45 AM [facility] MCV 81 80 - 100 fL 10/27/2025 8:45 AM [facility] MCH 25.3(L) 27.0 - 31.0 pg 10/27/2025 8:45 AM [facility] MCHC 31.3 30.0 - 36.0 g/dL 10/27/2025 8:45 AM [facility] RDW 16.8(H) 11.5 - 14.5 % 10/27/2025 8:45 AM [facility] MPV 10.2 7.5 - 12.5 fL 10/27/2025 8:45 AM [facility] nRBC 0.1 0.0 - 0.1 /100 WBC 10/27/2025 8:45 AM [facility] nRBC, Absolute 0.02 0.00 - 0.02 Thou/uL 10/27/2025 8:45 AM [facility] Blood Blood specimen / Unknown 10/27/2025 7:54 AM EST 10/27/2025 8:09 AM EST us Eddie Alicia MD LAB BLOOD ORDERABLES Final Resul t Performing Organization Address City/[facility]/[place] [address], [place] [address] * Magnesium (10/27/2025 7:54 AM EST) Magnesium 1.6 1.6 - 2.7 mg/dL 10/27/2025 8:50 AM [facility] Blood Blood specimen / Unknown 10/27/2025 7:54 AM EST 10/27/2025 8:09 AM EST us Eddie Alicia MD LAB BLOOD ORDERABLES Final Resul t Performing Organization Address City/[facility] [place] [address], [place] [address] * (ABNORMAL) Phosphorus (10/27/2025 7:54 AM EST) Phosphorus 2.4(L) 2.7 - 4.5 mg/dL 10/27/2025 8:50 AM EST [facility] Blood Blood specimen / Unknown 10/27/2025 7:54 AM EST 10/27/2025 8:09 AM EST Eddie Alicia MD LAB BLOOD ORDERABLES Final Resul t Performing Organization Address City/[facility] [place] [address], [place] [address] * (ABNORMAL) POCT Glucose, Fingerstick (10/27/2025 5:12 AM EST) POC Glucose 133(H) 65 - 99 mg/dL 10/27/2025 5:13 AM EST Blood specimen / Unknown 10/27/2025 5:12 AM EST 10/27/2025 5:13 AM EST Stanislav German MD POINT OF CARE TEST ORDERABLE S Final Result Performing Organization Address [facility] de Phone Number [facility] LAB See Below * (ABNORMAL) POCT Glucose, Fingerstick (10/27/2025 12:42 AM EST) POC Glucose 125(H) 65 - 99 mg/dL 10/27/2025 12:42 AM EST Blood specimen / Unknown 10/27/2025 12:42 AM EST 10/27/2025 12:43 AM EST Stanislav German MD POINT OF CARE TEST ORDERABLE S Final Result Performing Organization Address [facility] Co de Phone Number [facility] LAB See Below * (ABNORMAL) POCT Glucose, Fingerstick (10/26/2025 9:32 PM EST) POC Glucose 131(H) 65 - 99 mg/dL 10/26/2025 9:36 PM EST Blood specimen / Unknown 10/26/2025 9:32 PM EST 10/26/2025 9:36 PM EST us Stanislav German MD POINT OF CARE TEST ORDERABLE S Final Result Performing Organization Address [facility] Co de Phone Number HOSPITAL LAB See Below * (ABNORMAL) POCT Glucose, Fingerstick (10/26/2025 6:34 PM EST) POC Glucose 149(H) 65 - 99 mg/dL 10/26/2025 6:34 PM EST Blood specimen / Unknown 10/26/2025 6:34 PM EST 10/26/2025 6:35 PM EST us Stanislav German MD POINT OF CARE TEST ORDERABLE S Final Result Performing Organization Address City/[facility] Co de Phone Number [facility] LAB See Below * Ammonia Level (10/26/2025 3:45 PM EST) Ammonia, Plasma 34 11 - 51 umol/L 10/26/2025 5:34 PM EST [facility] Blood Blood specimen / Unknown 10/26/2025 3:45 PM EST 10/26/2025 4:20 PM EST us Keron Alvarez DO LAB BLOOD ORDERABLES Ce l Result Performing Organization Address [facility] [place] [address], [place] [address] * (ABNORMAL) Vitamin D, 25-Hydroxy (10/26/2025 3:42 PM EST) Vitamin D, 25-Hydroxy 25(L) 30 - 100 ng/mL 10/26/2025 5:28 PM EST [facility] Blood Blood specimen / Unknown 10/26/2025 3:42 PM EST 10/26/2025 4:20 PM EST us Keron Hungt LAB BLOOD ORDERABLES Ce l Result Performing Organization Address [facility] [place] [address], [place] [address] * (ABNORMAL) T4, Free (10/26/2025 3:42 PM EST) [facility] T4, Free 0.71(L) 0.80 - 1.90 ng/dL 10/26/2025 5:05 PM EST [facility] Blood Blood specimen / Unknown 10/26/2025 3:42 PM EST 10/26/2025 4:20 PM EST [facility] LAB BLOOD ORDERABLES Ce l Result Performing Organization Address [facility] [place] [address], [place] [address] * (ABNORMAL) TSH (Routine) (10/26/2025 3:42 PM EST) [facility] TSH, Highly Sensitive 14.40(H) 0.27 - 4.20 mIU/L 10/26/2025 5:05 PM EST [facility] Blood Blood specimen / Unknown 10/26/2025 3:42 PM EST 10/26/2025 4:20 PM EST [facility] LAB BLOOD ORDERABLES Ce l Result Performing Organization Address City/[facility] [place] [address], [address] [address] * (ABNORMAL) POCT Glucose, Fingerstick (10/26/2025 12:33 PM EST) [facility] POC Glucose 156(H) 65 - 99 mg/dL 10/26/2025 12:39 PM EST Blood specimen / Unknown 10/26/2025 12:33 PM EST 10/26/2025 12:39 PM EST us Stanislav German MD POINT OF CARE TEST ORDERABLE S Final Result Performing Organization Address [facility] Phone Number [facility] LAB See Below * (ABNORMAL) POCT Glucose, Fingerstick (10/26/2025 7:52 AM EST) POC Glucose 127(H) 65 - 99 mg/dL 10/26/2025 7:56 AM EST Blood specimen / Unknown 10/26/2025 7:52 AM EST 10/26/2025 7:56 AM EST us Stanislav German MD POINT OF CARE TEST ORDERABLE S Final Result Performing Organization Address [facility] Phone Number [facility] See Below * (ABNORMAL) POCT Glucose, Fingerstick (10/26/2025 5:20 AM EST) POC Glucose 166(H) 65 - 99 mg/dL 10/26/2025 5:24 AM EST Blood specimen / Unknown 10/26/2025 5:20 AM EST 10/26/2025 5:24 AM EST us Stanislav German MD POINT OF CARE TEST ORDERABLE S Final Result Performing Organization Address [facility] Phone Number [facility] LAB See Below * (ABNORMAL) Magnesium (10/26/2025 3:57 AM EST) Magnesium 1.5(L) 1.6 - 2.7 mg/dL 10/26/2025 4:30 AM EST [facility] Blood Blood specimen / Unknown 10/26/2025 3:57 AM EST 10/26/2025 4:06 AM EST us Eddie Alicia MD LAB BLOOD ORDERABLES Final Resul t Performing Organization Address [facility] Phone Number [address] [address], [address] [address] * Phosphorus (10/26/2025 3:57 AM EST) Phosphorus 4.4 2.7 - 4.5 mg/dL 10/26/2025 4:30 AM [facility] Blood Blood specimen / Unknown 10/26/2025 3:57 AM EST 10/26/2025 4:06 AM EST us Eddie Alicia MD LAB BLOOD ORDERABLES Final Resul t [address] [address], [address] [address] * (ABNORMAL) COMPLETE BLOOD COUNT, WITHOUT DIFFERENTIAL (10/26/2025 3:57 AM EST) White Blood Cell Count 37.5(HH) 4.0 - 11.0 Thou/uL 10/26/2025 4:47 AM [facility] Comment:Results verified by smear review. Platelet Count 465(H) 150 - 450 Thou/uL 10/26/2025 4:47 AM [facility] Hemoglobin 7.6(L) 11.7 - 15.7 g/dL 10/26/2025 4:47 AM [facility] Hematocrit 23.1(L) 35.0 - 47.0 % 10/26/2025 4:47 AM [facility] Red Blood Cell Count 2.92(L) 4.00 - 5.40 Mil/uL 10/26/2025 4:47 AM [facility] MCV 79(L) 80 - 100 fL 10/26/2025 4:47 AM [facility] MCH 26.0(L) 27.0 - 31.0 pg 10/26/2025 4:47 AM [facility] MCHC 32.9 30.0 - 36.0 g/dL 10/26/2025 4:47 AM [facility] RDW 16.3(H) 11.5 - 14.5 % 10/26/2025 4:47 AM [facility] MPV 9.5 7.5 - 12.5 fL 10/26/2025 4:47 AM [facility] nRBC 0.1 0.0 - 0.1 /100 WBC 10/26/2025 4:47 AM [facility] nRBC, Absolute 0.02 0.00 - 0.02 Thou/uL 10/26/2025 4:47 AM [facility] Blood Blood specimen / Unknown 10/26/2025 3:57 AM EST 10/26/2025 4:06 AM EST us Eddie Alicia MD LAB BLOOD [place] [address], [place] [address] * (ABNORMAL) Basic Metabolic Panel (10/26/2025 3:57 AM EST) Glucose 171(H) 65 - 99 mg/dL 10/26/2025 4:30 AM [facility] Comment:Fasting: <100 mg/dL, Non-Fasting: <200 mg/dL (ADA 2005) Blood Urea Nitrogen (BUN) 15 8 - 21 mg/dL 10/26/2025 4:30 AM [facility] Creatinine 1.30(H) 0.40 - 1.10 mg/dL 10/26/2025 4:30 AM [facility] eGFR 49(L) >59 10/26/2025 4:30 AM [facility] Comment:CKD-EPI (2020) in mL /min/1.73 sq meters. Sodium 145 136 - 145 mmol/L 10/26/2025 4:30 AM [facility] Potassium 4.1 3.4 - 5.3 mmol/L 10/26/2025 4:30 AM [facility] Chloride 111(H) 98 - 107 mmol/L 10/26/2025 4:30 AM [facility] CO2 22 22 - 33 mmol/L 10/26/2025 4:30 AM [facility] Anion Gap 12 7 - 17 10/26/2025 4:30 AM [facility] Calcium 8.4(L) 8.7 - 10.5 mg/dL 10/26/2025 4:30 AM [facility] BUN/Creatinine Ratio 12 10.0 - 25.0 Ratio 10/26/2025 4:30 AM EST [facility] Blood Blood specimen / Unknown 10/26/2025 3:57 AM EST 10/26/2025 4:06 AM EST Eddie Alicia MD LAB BLOOD ORDERABLES Final Resul t Performing Organization Address [facility] [place] [address], [place] [address] * (ABNORMAL) POCT Glucose, Fingerstick (10/26/2025 12:12 AM EST) POC Glucose 246(H) 65 - 99 mg/dL 10/26/2025 12:13 AM EST Blood specimen / Unknown 10/26/2025 12:12 AM EST 10/26/2025 12:13 AM EST Stanislav German MD POINT OF CARE TEST ORDERABLE S Final Result Performing Organization Address [facility] Co de Phone Number HOSPITAL LAB See Below * (ABNORMAL) POCT Glucose, Fingerstick (10/25/2025 9:12 PM EST) POC Glucose 224(H) 65 - 99 mg/dL 10/25/2025 9:13 PM EST Blood specimen / Unknown 10/25/2025 9:12 PM EST 10/25/2025 9:13 PM EST Stanislav German MD POINT OF CARE TEST ORDERABLE S Final Result Performing Organization Address [facility] Co de Phone Number HOSPITAL LAB See Below * XR Abdomen 1 view-Portable (10/25/2025 8:39 PM EST) Anatomical Region Laterality Modality Abdomen Computed Radiogr aphy 10/25/2025 8:02 PM EST Impressions 10/25/2025 8:51 PM EST Surgical probe overlying the pelvis/vagina, please remove and repeat films. Report communicated intraoperatively to Dr. Alicia at 8:35 PM Eastern time. Narrative 10/25/2025 8:51 PM EST EXAMINATION: XR ABDOMEN KUB CLINICAL INDICATION: incorrect count COMPARISON: None available. TECHNIQUE: AP view of the abdomen. FINDINGS: There is a surgical probe overlying the pelvis/vagina. Bilateral nephrostomy tube catheters are noted. 3 pelvic surgical drains are noted. Procedure Note Jalil Monsalve MD - 10/25/2025 EXAMINATION: XR ABDOMEN KUB CLINICAL INDICATION: incorrect count COMPARISON: None available. TECHNIQUE: AP view of the abdomen. FINDINGS: There is a surgical probe overlying the pelvis/vagina. Bilateral nephrostomy tube catheters are noted. 3 pelvic surgical drains are noted. IMPRESSION: Surgical probe overlying the pelvis/vagina, please remove and repeat films. Report communicated intraoperatively to Dr. Alicia at 8:35 PM Eastern time. us Alfredo Aponte MD IMG DIAGNOSTIC IMAGING OR DERABLES Final Result * (ABNORMAL) ISTAT Calcium, Ionized (ICA) (10/25/2025 7:00 PM EST) Ionized Calcium, I-STAT 1.14(L) 1.17 - 1.33 mmol/L 10/26/2025 11:36 PM EST Blood specimen / Unknown 10/25/2025 7:00 PM EST 10/26/2025 11:35 PM EST us Eddie Alicia MD POINT OF CARE TEST ORDERABLES Fi nal Result Performing Organization Address [facility] Co de Phone Number HOSPITAL LAB See Below * (ABNORMAL) ISTAT Hemoglobin (10/25/2025 7:00 PM EST) Hemoglobin, I-STAT 9.9(L) 11.7 - 15.7 gm/dL 10/26/2025 11:36 PM EST Blood specimen / Unknown 10/25/2025 7:00 PM EST 10/26/2025 11:35 PM EST us Eddie Alicia MD POCT ORDERABLES - DEVICE Final R esult Performing Organization Address [facility]/ZIP Co de Phone Number HOSPITAL LAB See Below * (ABNORMAL) ISTAT Hematocrit (10/25/2025 7:00 PM EST) Hematocrit, I-STAT 29.0(L) 35.0 - 47.0 % 10/26/2025 11:36 PM EST Blood specimen / Unknown 10/25/2025 7:00 PM EST 10/26/2025 11:35 PM EST us Eddie Alicia MD POCT ORDERABLES - DEVICE Final R esult Performing Organization Address [facility] LAB See Below * ISTAT Potassium (K) (10/25/2025 7:00 PM EST) Potassium, I-STAT 4.0 3.4 - 5.3 mmol/L 10/26/2025 11:36 PM EST Blood specimen / Unknown 10/25/2025 7:00 PM EST 10/26/2025 11:35 PM EST us Eddie Alicia MD POINT OF CARE TEST ORDERABLES Fi nal Result Performing Organization Address [facility] LAB See Below * ISTAT Sodium (Na) (10/25/2025 7:00 PM EST) Sodium, I-STAT 145 136 - 145 mmol/L 10/26/2025 11:36 PM EST Blood specimen / Unknown 10/25/2025 7:00 PM EST 10/26/2025 11:35 PM EST us Eddie Alicia MD POINT OF CARE TEST ORDERABLES Fi nal Result Performing Organization Address [facility] LAB See Below * (ABNORMAL) ISTAT Glucose (10/25/2025 7:00 PM EST) Glucose, I-STAT 146(H) 65 - 99 mg/dL 10/26/2025 11:36 PM EST Blood specimen / Unknown 10/25/2025 7:00 PM EST 10/26/2025 11:35 PM EST Eddie Alicia MD POCT ORDERABLES - DEVICE Final R esult Performing Organization Address City/[facility]/ZIP Co de Phone Number HOSPITAL LAB See Below * (ABNORMAL) ISTAT Arterial Blood Gas (ABG) (10/25/2025 7:00 PM EST) PH Arterial, I-STAT 7.34(L) 7.35 - 7.45 10/26/2025 11:36 PM EST PCO2 Arterial, I-STAT 44.7 32.0 - 45.0 mmHg 10/26/2025 11:36 PM EST PO2 Arterial, I-STAT 176(H) 75 - 95 mmHg 10/26/2025 11:36 PM EST HCO3 Arterial, I-STAT 24.0 22.0 - 26.0 mmol/L 10/26/2025 11:36 PM EST TCO2 Arterial Calc, I-STAT 25 22 - 28 mmol/L 10/26/2025 11:36 PM EST Base Excess, I-STAT -2 mmol/L 10/26/2025 11:36 PM EST Comment:Reference Range: Neg ative 2 to Positive 3 SO2, I-STAT 99.0(H) 94.0 - 97.0 % 10/26/2025 11:36 PM EST Sample Type, I-STAT Arterial 10/26/2025 11:36 PM EST Blood specimen / Unknown 10/25/2025 7:00 PM EST 10/26/2025 11:35 PM EST us Eddie Alicia MD POCT ORDERABLES - DEVICE Final R esult HOSPITAL LAB See Below * Pathology (10/25/2025 6:41 PM EST) Report [facility] [id number] CLIA ID [id number] [address] [place] [address] [phone] Surgical Pathology Report PATIENT NAME: BUZZ [facility]N [facility] REC NUMBER: [id number] (AGE): 1970 (Age: 55) SPECIMEN NUMBER: [id number] DATE OBTAINED: 10/25/2025 DIAGNOSIS A. PLEASE SEE CORRESPONDING CYTOLOGY REPORT ([id number]) B. 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 Specimen B is received in formalin labeled per the requisition as left ovarian cyst wall and consists of 3 stone-brown unoriented irregular shaped portions of rubbery tissue, ranging from 0.5 x 0.5 x 0.3 cm to 1.4 x 1.0 x 0.8 cm. The largest portion of tissue is sectioned to reveal stone-brown, glistening and smooth cut surfaces. The specimen is entirely submitted in B1-B2, to include largest portion of tissue, serially sectioned in B1, and smaller portions of tissue, submitted in toto in B2. HOSPITAL LAB Tissue (Abdominal Cavity) 10/25/2025 6:41 PM EST Eddie Alicia MD PATHOLOGY/CYTOLOGY ORDERABLES Fi nal Result HOSPITAL LAB See Below * Cytology Report (10/25/2025 6:08 PM EST) Report [facility] [id number] CLIA ID [id number] [address] [place] [id number] [phone] Cytopathology Report PATIENT NAME: SIS VALDEZ REC NUMBER: [id number] (AGE): 1970 (Age: 55) SPECIMEN NUMBER: [id number] DATE OBTAINED: 10/25/2025 DIAGNOSIS: A. LEFT ADNEXAL CYST FLUID, OTHER WITH CELL BLOCK: NEGATIVE FOR MALIGNANT CELLS; INFLAMMATORY CELLS WITH ABUNDANT NEUTROPHILS, AND BLAND LOOKING CYST LINING CELLS; SEE ALSO [id number] [facility]/10/28/2025 Electronically Signed Out HAI ALY MD Signout Facility: [facility] [address] [place], [place] CLIA #: [id number] Clinical Diagnosis and History: TUBO-OVARIAN ABSCESS LEFT ADNEXAL CYST FLUID Tissue(s) Submitted: A: LEFT ADNEXAL CYST Fluid, Other WITH CELL BLOCK Specimen Description: RECEIVED 4 MLS CLOUDY ORANGE/PINK FLUID WITH TISSUE FRAGMENTS [1 THINPREP MADE] PLUS CELL BLOCK 1 SLIDE TOTAL AND CELL BLOCK, TIME IN FORMALIN 09:30 ICD Codes: N70.93 Salpingitis and oophoritis, unspecified HOSPITAL LAB Body Fluid (Abdominal Cavity) 10/25/2025 6:08 PM EST us Eddie Alicia MD PATHOLOGY/CYTOLOGY ORDERABLES Fi nal Result Performing Organization Address City/State/[facility] Co de Phone Number HOSPITAL LAB See Below * (ABNORMAL) ISTAT Calcium, Ionized (ICA) (10/25/2025 5:47 PM EST) Ionized Calcium, I-STAT 1.13(L) 1.17 - 1.33 mmol/L 10/26/2025 11:36 PM EST Blood specimen / Unknown 10/25/2025 5:47 PM EST 10/26/2025 11:35 PM EST us Eddie Alicia MD POINT OF CARE TEST ORDERABLES Fi nal Result HOSPITAL LAB See Below * (ABNORMAL) ISTAT Hemoglobin (10/25/2025 5:47 PM EST) Hemoglobin, I-STAT 8.2(L) 11.7 - 15.7 gm/dL 10/26/2025 11:36 PM EST Blood specimen / Unknown 10/25/2025 5:47 PM EST 10/26/2025 11:35 PM EST us Eddie Alicia MD POCT ORDERABLES - DEVICE Final R esult Performing Organization Address [facility] LAB See Below * (ABNORMAL) ISTAT Hematocrit (10/25/2025 5:47 PM EST) Hematocrit, I-STAT 24.0(L) 35.0 - 47.0 % 10/26/2025 11:36 PM EST Blood specimen / Unknown 10/25/2025 5:47 PM EST 10/26/2025 11:35 PM EST us Eddie Alicia MD POCT ORDERABLES - DEVICE Final R esult Performing Organization Address [facility] LAB See Below * ISTAT Potassium (K) (10/25/2025 5:47 PM EST) Potassium, I-STAT 3.9 3.4 - 5.3 mmol/L 10/26/2025 11:36 PM EST Blood specimen / Unknown 10/25/2025 5:47 PM EST 10/26/2025 11:35 PM EST us Eddie Alicia MD POINT OF CARE TEST ORDERABLES Fi nal Result Performing Organization Address [facility] LAB See Below * ISTAT Sodium (Na) (10/25/2025 5:47 PM EST) Sodium, I-STAT 145 136 - 145 mmol/L 10/26/2025 11:36 PM EST Blood specimen / Unknown 10/25/2025 5:47 PM EST 10/26/2025 11:35 PM EST us Eddie Alicia MD POINT OF CARE TEST ORDERABLES Fi nal Result Performing Organization Address [facility] LAB See Below * (ABNORMAL) ISTAT Glucose (10/25/2025 5:47 PM EST) Pathologist [facility] Glucose, I-STAT 128(H) 65 - 99 mg/dL 10/26/2025 11:36 PM EST Blood specimen / Unknown 10/25/2025 5:47 PM EST 10/26/2025 11:35 PM EST us Eddie Alicia MD POCT ORDERABLES - DEVICE Final R esult Performing Organization Address [facility]/ZIP Co de Phone Number HOSPITAL LAB See Below * (ABNORMAL) ISTAT Arterial Blood Gas (ABG) (10/25/2025 5:47 PM EST) [facility] PH Arterial, I-STAT 7.38 7.35 - 7.45 10/26/2025 11:36 PM EST PCO2 Arterial, I-STAT 42.6 32.0 - 45.0 mmHg 10/26/2025 11:36 PM EST PO2 Arterial, I-STAT 162(H) 75 - 95 mmHg 10/26/2025 11:36 PM EST HCO3 Arterial, I-STAT 25.0 22.0 - 26.0 mmol/L 10/26/2025 11:36 PM EST TCO2 Arterial Calc, I-STAT 26 22 - 28 mmol/L 10/26/2025 11:36 PM EST Base Excess, I-STAT 0 mmol/L 10/26/2025 11:36 PM EST Comment:Reference Range: Neg ative 2 to Positive 3 SO2, I-STAT 99.0(H) 94.0 - 97.0 % 10/26/2025 11:36 PM EST Sample Type, I-STAT Arterial 10/26/2025 11:36 PM EST Blood specimen / Unknown 10/25/2025 5:47 PM EST 10/26/2025 11:35 PM EST us Eddie Alicia MD POCT ORDERABLES - DEVICE Final R esult Performing Organization Address [facility] [facility]/ZIP Co de Phone Number HOSPITAL LAB See Below * (ABNORMAL) POCT Glucose, Fingerstick (10/25/2025 1:56 PM EST) POC Glucose 149(H) 65 - 99 mg/dL 10/25/2025 2:00 PM EST Blood specimen / Unknown 10/25/2025 1:56 PM EST 10/25/2025 2:00 PM EST us Stanislav German MD POINT OF CARE TEST ORDERABLE S Final Result HOSPITAL LAB See Below * CT Abdomen+pelvis w/contrast (10/25/2025 1:42 PM EST) Anatomical Region Laterality Modality Abdomen, Pelvis Computed Tomogra phy 10/25/2025 12:4 2 PM EST Impressions 10/25/2025 2:59 PM EST 1. Redemonstration of right adnexal abscess, confirmed pyosalpinx with interval decrease size status post left lower quadrant approach small pigtail catheter placement. 2. Air and fluid-filled perirectal abscess is status post right transgluteal pigtail catheter placement and measures 9.6 x 4.1 x 5.7 cm This abscess shows a fistulous communication with the adjacent rectum. 3. Bilateral nephrostomy tubes in place with pigtails in the renal pelvis. Interval resolution of severe bilateral hydroureteronephrosis. Findings communicated with general surgery team at the time of the scan. Fleischner guidelines were followed. Narrative 10/25/2025 2:59 PM EST EXAMINATION: CT ABDOMEN AND PELVIS WITH CONTRAST CLINICAL INFORMATION: Concern for bowel perforation COMPARISON: 10/22/2025 TECHNIQUE: Contiguous axial images were obtained through the abdomen and pelvis after administration of contrast 60 mL of Omnipaque 350. Coronal and sagittal reformations were performed. Oral contrast was not administered. Iodinated contrast, diluted in 1-10 solution was injected directly into the drains. 10 mL of contrast was evidently injected into the left lower quadrant drain which elucidated pain. 20 mL of contrast solution was injected into the right transgluteal drain. Following the first and an additional 50 mL of dilute contrast solution was injected into the perirectal drain and a secondary CT of the pelvis only was performed. This CT examination was performed using dose optimization techniques as appropriate, variously including the following: *Automated exposure control *Adjustment of mA and/or kV according to patient size (this includes techniques or standardized protocols for targeted exams where dose is matched to indication/reason for exam; i.e. extremities or head) *Use of iterative reconstruction technique DLP: 630.46 mGy-cm, followed by 540.17 mGy-cm FINDINGS: LUNG BASES: The visualized lung bases are clear. LIVER: Homogeneous in attenuation. Normal in size. No focal lesion. GALLBLADDER: Status post cholecystectomy with surgical clips in the gallbladder fossa. BILIARY SYSTEM: No intrahepatic or extrahepatic biliary ductal dilation. PANCREAS: Homogeneous in attenuation. No pancreatic ductal dilatation. No focal lesion. SPLEEN: Upper limits of normal in size measuring 12 cm in the longest dimension. ADRENAL GLANDS: No focal nodule. KIDNEYS/BLADDER: Bilateral kidneys demonstrate symmetric enhancement. Bilateral nephrostomy tubes in place with pigtails in the renal pelvis. Interval resolution of severe bilateral hydroureteronephrosis. GASTROINTESTINAL: Redemonstration of inflammatory changes along the distal sigmoid and rectum. In the proximal rectum there is fistulous communication with the adjacent abscess cavity best delineated on sagittal views (series 602 image 76 and 77). APPENDIX: The appendix is seen in its entirety and is unremarkable. PERITONEUM: No pneumoperitoneum. No ascites. No intra-abdominal fluid collection. LYMPH NODES: No pathologically enlarged abdominal or pelvic lymph nodes. PELVIC STRUCTURES: Redemonstration of right adnexal abscess, confirmed pyosalpinx with interval decrease size status post left lower quadrant approach small pigtail catheter placement.. The structure now measures 6.2 x 4.6 x 4.5 cm , previously 10.9 x 4.9 x 6.6 cm. Medially adjacent to this is a pocket of air filled collection that is continuous with the perirectal abscess. The perirectal abscess is status post right transgluteal pigtail catheter placement and measures measures 9.6 x 4.1 x 5.7 cm (series 602 image 74). This abscess shows a fistulous communication with the adjacent rectum as described above. SOFT TISSUES: No significant hernia visualized. MUSCULOSKELETAL: Multilevel degenerative changes of the spine. Procedure Note Lisette Gregory MD - 10/25/2025 EXAMINATION: CT ABDOMEN AND PELVIS WITH CONTRAST CLINICAL INFORMATION: Concern for bowel perforation COMPARISON: 10/22/2025 TECHNIQUE: Contiguous axial images were obtained through the abdomen and pelvis after administration of contrast 60 mL of Omnipaque 350. Coronal and sagittal reformations were performed. Oral contrast was not administered. Iodinated contrast, diluted in 1-10 solution was injected directly into the drains. 10 mL of contrast was evidently injected into the left lower quadrant drain which elucidated pain. 20 mL of contrast solution was injected into the right transgluteal drain. Following the first and an additional 50 mL of dilute contrast solution was injected into the perirectal drain and a secondary CT of the pelvis only was performed. This CT examination was performed using dose optimization techniques as appropriate, variously including the following: *Automated exposure control *Adjustment of mA and/or kV according to patient size (this includes techniques or standardized protocols for targeted exams where dose is matched to indication/reason for exam; i.e. extremities or head) *Use of iterative reconstruction technique DLP: 630.46 mGy-cm, followed by 540.17 mGy-cm FINDINGS: LUNG BASES: The visualized lung bases are clear. LIVER: Homogeneous in attenuation. Normal in size. No focal lesion. GALLBLADDER: Status post cholecystectomy with surgical clips in the gallbladder fossa. BILIARY SYSTEM: No intrahepatic or extrahepatic biliary ductal dilation. PANCREAS: Homogeneous in attenuation. No pancreatic ductal dilatation. No focal lesion. SPLEEN: Upper limits of normal in size measuring 12 cm in the longest dimension. ADRENAL GLANDS: No focal nodule. KIDNEYS/BLADDER: Bilateral kidneys demonstrate symmetric enhancement. Bilateral nephrostomy tubes in place with pigtails in the renal pelvis. Interval resolution of severe bilateral hydroureteronephrosis. GASTROINTESTINAL: Redemonstration of inflammatory changes along the distal sigmoid and rectum. In the proximal rectum there is fistulous communication with the adjacent abscess cavity best delineated on sagittal views (series 602 image 76 and 77). APPENDIX: The appendix is seen in its entirety and is unremarkable. PERITONEUM: No pneumoperitoneum. No ascites. No intra-abdominal fluid collection. LYMPH NODES: No pathologically enlarged abdominal or pelvic lymph nodes. PELVIC STRUCTURES: Redemonstration of right adnexal abscess, confirmed pyosalpinx with interval decrease size status post left lower quadrant approach small pigtail catheter placement.. The structure now measures 6.2 x 4.6 x 4.5 cm , previously 10.9 x 4.9 x 6.6 cm. Medially adjacent to this is a pocket of air filled collection that is continuous with the perirectal abscess. The perirectal abscess is status post right transgluteal pigtail catheter placement and measures measures 9.6 x 4.1 x 5.7 cm (series 602 image 74). This abscess shows a fistulous communication with the adjacent rectum as described above. SOFT TISSUES: No significant hernia visualized. MUSCULOSKELETAL: Multilevel degenerative changes of the spine. IMPRESSION: 1. Redemonstration of right adnexal abscess, confirmed pyosalpinx with interval decrease size status post left lower quadrant approach small pigtail catheter placement. 2. Air and fluid-filled perirectal abscess is status post right transgluteal pigtail catheter placement and measures 9.6 x 4.1 x 5.7 cm This abscess shows a fistulous communication with the adjacent rectum. 3. Bilateral nephrostomy tubes in place with pigtails in the renal pelvis. Interval resolution of severe bilateral hydroureteronephrosis. Findings communicated with general surgery team at the time of the scan. Fleischner guidelines were followed. us Ignacio Galarza MD IMG CT ORDERABLES Final Resul t * (ABNORMAL) POCT Glucose, Fingerstick (10/25/2025 8:42 AM EST) POC Glucose 110(H) 65 - 99 mg/dL 10/25/2025 8:43 AM EST Blood specimen / Unknown 10/25/2025 8:42 AM EST 10/25/2025 8:43 AM EST us Stanislav German MD POINT OF CARE TEST ORDERABLE S Final Result HOSPITAL LAB See Below * (ABNORMAL) Complete Blood Count WITHOUT Differential - Early AM (10/25/2025 5:46 AM EST) White Blood Cell Count 24.3(H) 4.0 - 11.0 Thou/uL 10/25/2025 6:31 AM EST [facility] Platelet Count 482(H) 150 - 450 Thou/uL 10/25/2025 6:31 AM EST [facility] Hemoglobin 7.8(L) 11.7 - 15.7 g/dL 10/25/2025 6:31 AM EST [facility] Hematocrit 24.0(L) 35.0 - 47.0 % 10/25/2025 6:31 AM [facility] Red Blood Cell Count 3.06(L) 4.00 - 5.40 Mil/uL 10/25/2025 6:31 AM [facility] MCV 78(L) 80 - 100 fL 10/25/2025 6:31 AM [facility] MCH 25.5(L) 27.0 - 31.0 pg 10/25/2025 6:31 AM [facility] MCHC 32.5 30.0 - 36.0 g/dL 10/25/2025 6:31 AM [facility] RDW 16.5(H) 11.5 - 14.5 % 10/25/2025 6:31 AM [facility] MPV 9.7 7.5 - 12.5 fL 10/25/2025 6:31 AM [facility] nRBC 0.1 0.0 - 0.1 /100 WBC 10/25/2025 6:31 AM [facility] nRBC, Absolute 0.02 0.00 - 0.02 Thou/uL 10/25/2025 6:31 AM [facility] Blood Blood specimen / Unknown 10/25/2025 5:46 AM EST 10/25/2025 6:19 AM EST Annika Milian MD LAB BLOOD [place] [address], [place] [address] * (ABNORMAL) Basic Metabolic Panel (Early AM) (10/25/2025 5:46 AM EST) Glucose 129(H) 65 - 99 mg/dL 10/25/2025 6:40 AM [facility] Comment:Fasting: <100 mg/dL, Non-Fasting: <200 mg/dL (ADA 2005) Blood Urea Nitrogen (BUN) 20 8 - 21 mg/dL 10/25/2025 6:40 AM [facility] Creatinine 1.59(H) 0.40 - 1.10 mg/dL 10/25/2025 6:40 AM [facility] eGFR 39(L) >59 10/25/2025 6:40 AM [facility] Comment:CKD-EPI (2020) in mL /min/1.73 sq meters. Sodium 141 136 - 145 mmol/L 10/25/2025 6:40 AM [facility] Potassium 3.3(L) 3.4 - 5.3 mmol/L 10/25/2025 6:40 AM [facility] Chloride 106 98 - 107 mmol/L 10/25/2025 6:40 AM [facility] CO2 22 22 - 33 mmol/L 10/25/2025 6:40 AM [facility] Anion Gap 13 7 - 17 10/25/2025 6:40 AM [facility] Calcium 8.7 8.7 - 10.5 mg/dL 10/25/2025 6:40 AM [facility] BUN/Creatinine Ratio 13 10.0 - 25.0 Ratio 10/25/2025 6:40 AM [facility] Blood Blood specimen / Unknown 10/25/2025 5:46 AM EST 10/25/2025 6:19 AM EST Annika Milian MD LAB BLOOD ORDERABLES Final Resu lt Performing Organization Address [facility]/[place] [address], [place] [address] * (ABNORMAL) POCT Glucose, Fingerstick (10/25/2025 4:24 AM EST) POC Glucose 148(H) 65 - 99 mg/dL 10/25/2025 4:30 AM EST Blood specimen / Unknown 10/25/2025 4:24 AM EST 10/25/2025 4:30 AM EST Stanislav German MD POINT OF CARE TEST ORDERABLE S Final Result HOSPITAL LAB See Below * (ABNORMAL) POCT Glucose, Fingerstick (10/24/2025 11:55 PM EST) POC Glucose 126(H) 65 - 99 mg/dL 10/25/2025 12:02 AM EST Blood specimen / Unknown 10/24/2025 11:55 PM EST 10/25/2025 12:02 AM EST us Stanislav German MD POINT OF CARE TEST ORDERABLE S Final Result Performing Organization Address [facility] LAB See Below * (ABNORMAL) POCT Glucose, Fingerstick (10/24/2025 8:06 PM EST) POC Glucose 157(H) 65 - 99 mg/dL 10/24/2025 8:06 PM EST Blood specimen / Unknown 10/24/2025 8:06 PM EST 10/24/2025 8:07 PM EST Stanislav German MD POINT OF CARE TEST ORDERABLE S Final Result Performing Organization Address [facility] Number [facility] LAB See Below * (ABNORMAL) POCT Glucose, Fingerstick (10/24/2025 3:54 PM EST) POC Glucose 110(H) 65 - 99 mg/dL 10/24/2025 4:06 PM EST Blood specimen / Unknown 10/24/2025 3:54 PM EST 10/24/2025 4:06 PM EST Stanislav German MD POINT OF CARE TEST ORDERABLE S Final Result Performing Organization Address [facility] Phone Number [facility] LAB See Below * POCT Glucose, Fingerstick (10/24/2025 11:44 AM EST) POC Glucose 83 65 - 99 mg/dL 10/24/2025 11:44 AM EST Blood specimen / Unknown 10/24/2025 11:44 AM EST 10/24/2025 11:45 AM EST us Stanislav German MD POINT OF CARE TEST ORDERABLE S Final Result HOSPITAL LAB See Below * POCT Glucose, Fingerstick (10/24/2025 7:40 AM EST) [facility] POC Glucose 82 65 - 99 mg/dL 10/24/2025 7:40 AM EST Blood specimen / Unknown 10/24/2025 7:40 AM EST 10/24/2025 7:41 AM EST Stanislav German MD POINT OF CARE TEST ORDERABLE S Final Result [facility] LAB See Below * Magnesium (10/24/2025 6:46 AM EST) [facility] Magnesium 2.1 1.6 - 2.7 mg/dL 10/24/2025 8:40 AM [facility] Blood Blood specimen / Unknown 10/24/2025 6:46 AM EST 10/24/2025 7:46 AM EST Carmela Ortiz MD LAB BLOOD ORDERABLES Final Result Performing Organization Address [facility] [place] [address], [place] [address] * (ABNORMAL) Basic Metabolic Panel (10/24/2025 6:46 AM EST) [facility] Glucose 72 65 - 99 mg/dL 10/24/2025 8:40 AM [facility] Comment:Fasting: <100 mg/dL, Non-Fasting: <200 mg/dL (ADA 2004) Blood Urea Nitrogen (BUN) 32(H) 8 - 21 mg/dL 10/24/2025 8:40 AM [facility] Creatinine 2.25(H) 0.40 - 1.10 mg/dL 10/24/2025 8:40 AM [facility] eGFR 25(L) >59 10/24/2025 8:40 AM [facility] Comment:CKD-EPI (2020) in mL /min/1.73 sq meters. Sodium 146(H) 136 - 145 mmol/L 10/24/2025 8:40 AM [facility] Potassium 3.5 3.4 - 5.3 mmol/L 10/24/2025 8:40 AM [facility] Chloride 111(H) 98 - 107 mmol/L 10/24/2025 8:40 AM [facility] CO2 21(L) 22 - 33 mmol/L 10/24/2025 8:40 AM [facility] Anion Gap 14 7 - 17 10/24/2025 8:40 AM [facility] Calcium 8.4(L) 8.7 - 10.5 mg/dL 10/24/2025 8:40 AM [facility] BUN/Creatinine Ratio 14 10.0 - 25.0 Ratio 10/24/2025 8:40 AM [facility] Blood Blood specimen / Unknown 10/24/2025 6:46 AM EST 10/24/2025 7:46 AM EST Carmela Ortiz MD LAB BLOOD [place] [address], [place] [address] * (ABNORMAL) COMPLETE BLOOD COUNT, WITHOUT DIFFERENTIAL (10/24/2025 6:46 AM EST) White Blood Cell Count 21.8(H) 4.0 - 11.0 Thou/uL 10/24/2025 8:12 AM [facility] Platelet Count 422 150 - 450 Thou/uL 10/24/2025 8:12 AM [facility] Hemoglobin 7.5(L) 11.7 - 15.7 g/dL 10/24/2025 8:12 AM [facility] Hematocrit 23.6(L) 35.0 - 47.0 % 10/24/2025 8:12 AM [facility] Red Blood Cell Count 2.92(L) 4.00 - 5.40 Mil/uL 10/24/2025 8:12 AM [facility] MCV 81 80 - 100 fL 10/24/2025 8:12 AM [facility] MCH 25.7(L) 27.0 - 31.0 pg 10/24/2025 8:12 AM [facility] MCHC 31.8 30.0 - 36.0 g/dL 10/24/2025 8:12 AM [facility] RDW 16.3(H) 11.5 - 14.5 % 10/24/2025 8:12 AM [facility] MPV 10.0 7.5 - 12.5 fL 10/24/2025 8:12 AM [facility] Blood Blood specimen / Unknown 10/24/2025 6:46 AM EST 10/24/2025 7:46 AM EST Carmela Ortiz MD LAB BLOOD ORDERABLES Final Result Performing Organization Address City/[facility]/[place] [address], [place] [address] * Vancomycin Level, Random (10/24/2025 6:46 AM EST) Vancomycin, Random 14 mg/L 10/24/2025 8:39 AM [facility] Comment:No reference range e stablished for random levels. Time of Last Dose Information not given 10/23/2025 11:03 PM [facility] Blood Blood specimen / Unknown 10/24/2025 6:46 AM EST 10/24/2025 7:47 AM EST Mehnaz Rodriguez MD LAB BLOOD [place] [address], [place] [address] * (ABNORMAL) POCT Glucose, Fingerstick (10/24/2025 3:55 AM EST) POC Glucose 105(H) 65 - 99 mg/dL 10/24/2025 3:59 AM EST Blood specimen / Unknown 10/24/2025 3:55 AM EST 10/24/2025 3:59 AM EST us Stanislav German MD POINT OF CARE TEST ORDERABLE S Final Result Performing Organization Address [facility] LAB See Below * POCT Glucose, Fingerstick (10/24/2025 2:14 AM EST) POC Glucose 99 65 - 99 mg/dL 10/24/2025 2:14 AM EST Blood specimen / Unknown 10/24/2025 2:14 AM EST 10/24/2025 2:15 AM EST us Stanislav German MD POINT OF CARE TEST ORDERABLE S Final Result Performing Organization Address [facility] LAB See Below * (ABNORMAL) POCT Glucose, Fingerstick (10/23/2025 8:04 PM EST) POC Glucose 115(H) 65 - 99 mg/dL 10/23/2025 8:08 PM EST Blood specimen / Unknown 10/23/2025 8:04 PM EST 10/23/2025 8:08 PM EST us Stanislav German MD POINT OF CARE TEST ORDERABLE S Final Result Performing Organization Address [facility] LAB See Below * (ABNORMAL) POCT Glucose, Fingerstick (10/23/2025 6:09 PM EST) POC Glucose 125(H) 65 - 99 mg/dL 10/23/2025 6:10 PM EST Blood specimen / Unknown 10/23/2025 6:09 PM EST 10/23/2025 6:10 PM EST us Stanislav German MD POINT OF CARE TEST ORDERABLE S Final Result Performing Organization Address [facility] Phone [facility] LAB See Below * POCT Glucose, Fingerstick (10/23/2025 4:52 PM EST) POC Glucose 74 65 - 99 mg/dL 10/23/2025 4:55 PM EST Blood specimen / Unknown 10/23/2025 4:52 PM EST 10/23/2025 4:55 PM EST us Stanislav German MD POINT OF CARE TEST ORDERABLE S Final Result HOSPITAL LAB See Below * IR INJECT NEPHROSTOGRAM NEW ACCESS-BILAT W/GUIDANCE (10/23/2025 3:30 PM EST) Anatomical Region Laterality Modality X-Ray Angiograph y 10/23/2025 1:52 PM EST Impressions 10/26/2025 4:42 PM EST Bilateral 10F nephrostomy tube placement. Plan: 1. The patient was stable after the procedure and was transferred to the interventional recovery area. The patient will be transferred to the floor. 2. Keep tube to bag drainage and flush twice daily with 10 mL normal saline. 3. To return to Interventional Radiology for routine change in 8-12 weeks. PROCEDURE SUMMARY - Target organ: Bilateral [place] kidneys - Image-guided placement of genitourinary catheter(s) - Additional procedure(s): None PROCEDURE DETAILS: Pre-procedure Consent: Informed consent for the procedure including risks, benefits and alternatives was obtained and time-out was performed prior to the procedure. Preparation: The site was prepared and draped using maximal sterile barrier technique including cutaneous antisepsis. Anesthesia/sedation Level of anesthesia/sedation: Moderate sedation (conscious sedation) Anesthesia/sedation administered by: Independent trained observer under attending supervision with continuous monitoring of the patient's level of consciousness and physiologic status Total intra-service sedation time (minutes): 60 Sedation Medications Versed: 0.5 mg IV Fentanyl: 50 mcg IV Left genitourinary catheter placement Local anesthesia was administered. A needle was advanced into the renal collecting system under ultrasound and fluoroscopy guidance. A wire was advanced, the tract was serially dilated and a nephrostomy tube was placed. Contrast injection was performed. Genitourinary catheter placed:10F multipurpose drainage catheter Findings: Severe hydroureteronephrosis with severe tapering in the distal ureter, likely at the level of the pelvic inflammation where there is severe stenosis at the ureter but persistent flow of contrast into the bladder. Successful left nephrostomy tube placement via a lower pole calyx with pigtail located in the renal pelvis. External catheter securement: Non-absorbable suture and adhesive anchoring device Right genitourinary catheter placement Local anesthesia was administered. A needle was advanced into the renal collecting system under ultrasound and fluoroscopy guidance. A wire was advanced, the tract was serially dilated and a nephrostomy tube was placed. Contrast injection was performed. Genitourinary catheter placed:10 [place] multipurpose drainage catheter Findings: Severe hydroureteronephrosis with severe tapering in the distal ureter, likely at the level of the pelvic inflammation where there is severe stenosis at the ureter but persistent flow of contrast into the bladder. Successful right nephrostomy tube placement via a lower pole calyx with pigtail located in the renal pelvis. External catheter securement: Non-absorbable suture and adhesive anchoring device Additional genitourinary system intervention Genitourinary intervention: None Location of intervention: Not applicable Device used: Not applicable Description of intervention: Not applicable Post-intervention findings: Not applicable Contrast Contrast agent: Omnipaque 300 Contrast volume (mL): 15 Radiation Dose Fluoroscopy time (minutes): 4.8 Reference air kerma (mGy): 57.9 Kerma area product (uGy-m2): 458.62 Additional Details Additional description of procedure: None Equipment details: None Specimens removed: Urine. A sample was sent for analysis. Estimated blood loss (mL): Less than 10 Standardized report: [email or web address] Attestation Signer name: Bibiana Mcwilliams I attest that I was present for the entire procedure. I reviewed the stored images and agree with the report as written. Narrative 10/26/2025 4:42 PM EST PROCEDURE: PERCUTANEOUS NEPHROSTOMY TUBE PLACEMENT, BILATERAL Referring provider: Desiree Washington Procedural Personnel Attending physician(s): Bibiana Mcwilliams M.D. Resident physician(s): None Advanced practice provider(s): None Pre-procedure diagnosis: Bilateral ureteral obstruction Post-procedure diagnosis: Same Indication: Urinary obstruction Catheter(s) placed because the previous catheter(s) became dislodged within 30 days of placement (QCDR): No Additional clinical history: None Complications: No immediate complications. Procedure Note Bibiana Mcwilliams MD - 10/26/2025 PROCEDURE: PERCUTANEOUS NEPHROSTOMY TUBE PLACEMENT, BILATERAL Referring provider: Desiree Washington Procedural Personnel Attending physician(s): Bibiana Mcwilliams M.D. Resident physician(s): None Advanced practice provider(s): None Pre-procedure diagnosis: Bilateral ureteral obstruction Post-procedure diagnosis: Same Indication: Urinary obstruction Catheter(s) placed because the previous catheter(s) became dislodged within 30 days of placement (QCDR): No Additional clinical history: None Complications: No immediate complications. IMPRESSION: Bilateral 10F nephrostomy tube placement. Plan: 1. The patient was stable after the procedure and was transferred to the interventional recovery area. The patient will be transferred to the floor. 2. Keep tube to bag drainage and flush twice daily with 10 mL normal saline. 3. To return to Interventional Radiology for routine change in 8-12 weeks. PROCEDURE SUMMARY - Target organ: Bilateral [place] kidneys - Image-guided placement of genitourinary catheter(s) - Additional procedure(s): None PROCEDURE DETAILS: Pre-procedure Consent: Informed consent for the procedure including risks, benefits and alternatives was obtained and time-out was performed prior to the procedure. Preparation: The site was prepared and draped using maximal sterile barrier technique including cutaneous antisepsis. Anesthesia/sedation Level of anesthesia/sedation: Moderate sedation (conscious sedation) Anesthesia/sedation administered by: Independent trained observer under attending supervision with continuous monitoring of the patient's level of consciousness and physiologic status Total intra-service sedation time (minutes): 60 Sedation Medications Versed: 0.5 mg IV Fentanyl: 50 mcg IV Left genitourinary catheter placement Local anesthesia was administered. A needle was advanced into the renal collecting system under ultrasound and fluoroscopy guidance. A wire was advanced, the tract was serially dilated and a nephrostomy tube was placed. Contrast injection was performed. Genitourinary catheter placed:10F multipurpose drainage catheter Findings: Severe hydroureteronephrosis with severe tapering in the distal ureter, likely at the level of the pelvic inflammation where there is severe stenosis at the ureter but persistent flow of contrast into the bladder. Successful left nephrostomy tube placement via a lower pole calyx with pigtail located in the renal pelvis. External catheter securement: Non-absorbable suture and adhesive anchoring device Right genitourinary catheter placement Local anesthesia was administered. A needle was advanced into the renal collecting system under ultrasound and fluoroscopy guidance. A wire was advanced, the tract was serially dilated and a nephrostomy tube was placed. Contrast injection was performed. Genitourinary catheter placed:10 [place]er multipurpose drainage catheter Findings: Severe hydroureteronephrosis with severe tapering in the distal ureter, likely at the level of the pelvic inflammation where there is severe stenosis at the ureter but persistent flow of contrast into the bladder. Successful right nephrostomy tube placement via a lower pole calyx with pigtail located in the renal pelvis. External catheter securement: Non-absorbable suture and adhesive anchoring device Additional genitourinary system intervention Genitourinary intervention: None Location of intervention: Not applicable Device used: Not applicable Description of intervention: Not applicable Post-intervention findings: Not applicable Contrast Contrast agent: Omnipaque 300 Contrast volume (mL): 15 Radiation Dose Fluoroscopy time (minutes): 4.8 Reference air kerma (mGy): 57.9 Kerma area product (uGy-m2): 458.62 Additional Details Additional description of procedure: None Equipment details: None Specimens removed: Urine. A sample was sent for analysis. Estimated blood loss (mL): Less than 10 Standardized report: [email or web address] Attestation Signer name: Bibiana Mcwilliams I attest that I was present for the entire procedure. I reviewed the stored images and agree with the report as written. us Annika Milian MD IMG IR ORDERABLES Final Result * Urine Culture, Comprehensive (10/23/2025 3:00 PM EST) Culture No aerobes isolated after 3 days and no anaerobes isolated after 5 days. 10/28/2025 9:05 AM EST [facility] Nephrostomy Catheter, right 10/23/2025 3:00 PM EST 10/23/2025 4:03 PM EST Comment:Urine Stanislav German MD MICROBIOLOGY - GENERAL ORDER UNA Final Result [facility] [address] [place] [address], [place] * Urine Culture, Comprehensive (10/23/2025 2:59 PM EST) Culture No aerobes isolated after 3 days and no anaerobes isolated after 5 days. 10/28/2025 9:05 AM EST [facility] Nephrostomy Catheter, left 10/23/2025 2:59 PM EST 10/23/2025 4:01 PM EST Comment:Urine Stanislav German MD MICROBIOLOGY - GENERAL ORDER UNA Final Result Performing Organization Address City/[facility]/ZIP Co de Phone Number [facility] [address] [place] [address], [place] * CT ABSCESS DRAIN (RETRO) W/GUIDANCE (10/23/2025 1:49 PM EST) Anatomical Region Laterality Modality Computed Tomogra phy 10/23/2025 12:1 4 PM EST Impressions 10/26/2025 4:35 PM EST 1. Percutaneous placement of a transgluteal 12 [place] drainage catheter into the presacral fluid collection, yielding 55 mL of emely pus. Samples sent for culture. Drain attached to bulb suction. 2. Percutaneous placement of a 10 [place] mini loop drainage catheter into the fluid collection in the left adnexa, yielding 35 mL of emely pus. Sample sent for culture. Drain attached to bulb suction. 3. Aspiration of 20 mL of thick serous fluid from a fluid collection in the left adnexa. Sample sent to cytology. No drainable left in place. PLAN: 1. Keep tubes attached to bulb suction. 2. Flush tubes three times a day with 10 mL of normal saline (5 mL to the patient, 5 mL to the bag). 3. Record daily output. Once the net output is 10 mL or less for 2 consecutive days, consider repeat imaging to assess for possible drain removal. PROCEDURE SUMMARY: - Intraperitoneal drainage catheter placement under CT guidance x 2 - Additional procedure(s): Intraperitoneal aspiration under CT guidance x1 PROCEDURE DETAILS: PREPROCEDURE: Consent: Informed consent for the procedure including risks, benefits and alternatives was obtained and time out was performed prior to the procedure. Preparation: The site was prepared and draped using maximal sterile barrier technique including cutaneous antisepsis. ANESTHESIA/SEDATION: Level of anesthesia/sedation: Moderate sedation (conscious sedation) Anesthesia/sedation administered by: Independent trained observer under attending supervision with continuous monitoring of the patient's level of consciousness and physiologic status Total intra-service sedation time (minutes): 60 Sedation Medications 1. Versed: 1 mg IV 2. Fentanyl: 200 mcg IV DRAINAGE CATHETER PLACEMENT #1: The patient was positioned prone. Initial imaging was performed. Local anesthesia was administered. The fluid collection was accessed using an access needle followed by wire insertion and serial dilation and a drainage catheter was placed. Position of the drainage catheter within the fluid collection was confirmed. - Initial imaging findings: Presacral fluid collection containing foci of gas and measures 5.0 x 4.0 cm. - Drainage catheter placed: 12 [place] Islander Multipurpose drainage catheter - External catheter securement: Non-absorbable suture and adhesive anchoring device - Post-drainage imaging findings: Near-complete drainage of the fluid collection DRAINAGE CATHETER PLACEMENT #2: The patient was positioned supine. Initial imaging was performed. Local anesthesia was administered. The fluid collection was accessed using an access needle followed by wire insertion and serial dilation and a drainage catheter was placed. Position of the drainage catheter within the fluid collection was confirmed. - Initial imaging findings: Fluid collection in the left adnexa measures 4.1 x 3.5 cm. - Drainage catheter placed: 10 [place] mini loop Multipurpose drainage catheter - External catheter securement: Non-absorbable suture and adhesive anchoring device - Post-drainage imaging findings: Near-complete drainage of the fluid collection FLUID COLLECTION ASPIRATION: The patient was positioned supine. Initial imaging was performed. Local anesthesia was administered. The fluid collection was accessed using an access needle. Position within the fluid collection was confirmed, and fluid aspiration was performed. All instruments were then removed. - Initial imaging findings: Fluid collection in the anterior adnexa measures 5.1 x 1.5 cm. - Aspiration needle/catheter: 5 [place] one-step catheter - Post-aspiration imaging findings: Near-complete drainage of the fluid collection CONTRAST: Contrast agent: None Contrast volume (mL): 0 RADIATION DOSE: This CT examination was performed using dose optimization techniques as appropriate, variously including the following: *Automated exposure control *Adjustment of mA and/or kV according to patient size (this includes techniques or standardized protocols for targeted exams where dose is matched to indication/reason for exam; i.e. extremities or head) *Use of iterative reconstruction technique CT fluoroscopy time (seconds): 82.57 CT dose length product (mGy-cm): 1630.07 ADDITIONAL DETAILS: Additional description of procedure: None Equipment details: None Specimens removed: Aspirated fluid was sent for analysis. Estimated blood loss (mL): Less than 10 Standardized report: [email or web address] ATTESTATION: Signer name: Bibiana Mcwilliams MD I attest that I was present for the entire procedure. I reviewed the stored images and agree with the report as written. Narrative 10/26/2025 4:35 PM EST PROCEDURE: IR DRAINAGE CATHETER PLACEMENT x 2 IR ASPIRATION x 1 REFERRING PROVIDER: Desiree Washington PROCEDURAL PERSONNEL: Attending Physician(s): Bibiana Mcwilliams M.D. Resident Physician(s): None Advanced Practice Provider(s): None PREPROCEDURE DIAGNOSIS: Recurrent TOA POSTPROCEDURE DIAGNOSIS: Same INDICATION: Leukocytosis with fluid collection ADDITIONAL CLINICAL HISTORY: None COMPLICATIONS: No immediate complications. Procedure Note Bibiana Mcwilliams MD - 10/26/2025 PROCEDURE: IR DRAINAGE CATHETER PLACEMENT x 2 IR ASPIRATION x 1 REFERRING PROVIDER: Desiree Washington PROCEDURAL PERSONNEL: Attending Physician(s): Bibiana Mcwilliams M.D. Resident Physician(s): None Advanced Practice Provider(s): None PREPROCEDURE DIAGNOSIS: Recurrent TOA POSTPROCEDURE DIAGNOSIS: Same INDICATION: Leukocytosis with fluid collection ADDITIONAL CLINICAL HISTORY: None COMPLICATIONS: No immediate complications. IMPRESSION: 1. Percutaneous placement of a transgluteal 12 [place] drainage catheter into the presacral fluid collection, yielding 55 mL of emely pus. Samples sent for culture. Drain attached to bulb suction. 2. Percutaneous placement of a 10 [place] Island[place] mini loop drainage catheter into the fluid collection in the left adnexa, yielding 35 mL of emely pus. Sample sent for culture. Drain attached to bulb suction. 3. Aspiration of 20 mL of thick serous fluid from a fluid collection in the left adnexa. Sample sent to cytology. No drainable left in place. PLAN: 1. Keep tubes attached to bulb suction. 2. Flush tubes three times a day with 10 mL of normal saline (5 mL to the patient, 5 mL to the bag). 3. Record daily output. Once the net output is 10 mL or less for 2 consecutive days, consider repeat imaging to assess for possible drain removal. PROCEDURE SUMMARY: - Intraperitoneal drainage catheter placement under CT guidance x 2 - Additional procedure(s): Intraperitoneal aspiration under CT guidance x1 PROCEDURE DETAILS: PREPROCEDURE: Consent: Informed consent for the procedure including risks, benefits and alternatives was obtained and time out was performed prior to the procedure. Preparation: The site was prepared and draped using maximal sterile barrier technique including cutaneous antisepsis. ANESTHESIA/SEDATION: Level of anesthesia/sedation: Moderate sedation (conscious sedation) Anesthesia/sedation administered by: Independent trained observer under attending supervision with continuous monitoring of the patient's level of consciousness and physiologic status Total intra-service sedation time (minutes): 60 Sedation Medications 1. Versed: 1 mg IV 2. Fentanyl: 200 mcg IV DRAINAGE CATHETER PLACEMENT #1: The patient was positioned prone. Initial imaging was performed. Local anesthesia was administered. The fluid collection was accessed using an access needle followed by wire insertion and serial dilation and a drainage catheter was placed. Position of the drainage catheter within the fluid collection was confirmed. - Initial imaging findings: Presacral fluid collection containing foci of gas and measures 5.0 x 4.0 cm. - Drainage catheter placed: 12 [place] Islander Multipurpose drainage catheter - External catheter securement: Non-absorbable suture and adhesive anchoring device - Post-drainage imaging findings: Near-complete drainage of the fluid collection DRAINAGE CATHETER PLACEMENT #2: The patient was positioned supine. Initial imaging was performed. Local anesthesia was administered. The fluid collection was accessed using an access needle followed by wire insertion and serial dilation and a drainage catheter was placed. Position of the drainage catheter within the fluid collection was confirmed. - Initial imaging findings: Fluid collection in the left adnexa measures 4.1 x 3.5 cm. - Drainage catheter placed: 10 [place] Island[place] mini loop Multipurpose drainage catheter - External catheter securement: Non-absorbable suture and adhesive anchoring device - Post-drainage imaging findings: Near-complete drainage of the fluid collection FLUID COLLECTION ASPIRATION: The patient was positioned supine. Initial imaging was performed. Local anesthesia was administered. The fluid collection was accessed using an access needle. Position within the fluid collection was confirmed, and fluid aspiration was performed. All instruments were then removed. - Initial imaging findings: Fluid collection in the anterior adnexa measures 5.1 x 1.5 cm. - Aspiration needle/catheter: 5 [place]er one-step catheter - Post-aspiration imaging findings: Near-complete drainage of the fluid collection CONTRAST: Contrast agent: None Contrast volume (mL): 0 RADIATION DOSE: This CT examination was performed using dose optimization techniques as appropriate, variously including the following: *Automated exposure control *Adjustment of mA and/or kV according to patient size (this includes techniques or standardized protocols for targeted exams where dose is matched to indication/reason for exam; i.e. extremities or head) *Use of iterative reconstruction technique CT fluoroscopy time (seconds): 82.57 CT dose length product (mGy-cm): 1630.07 ADDITIONAL DETAILS: Additional description of procedure: None Equipment details: None Specimens removed: Aspirated fluid was sent for analysis. Estimated blood loss (mL): Less than 10 Standardized report: [email or web address] ATTESTATION: Signer name: Bibiana Mcwilliams MD I attest that I was present for the entire procedure. I reviewed the stored images and agree with the report as written. Annika Milian MD IMG IRCT ORDERABLES Final Resul t * (ABNORMAL) Aerobic culture (Gram stain included) (10/23/2025 1:38 PM EST) Gram stain suggestive of Many neutrophils No squamous cells Red blood cells Gram positive cocci 10/23/2025 6:49 PM [facility] Culture E.coli(A) 10/25/2025 12:12 PM [facility] Culture Streptococcus constellatus(A) 10/25/2025 12:12 PM [facility] Specimen from ovary / Unknown 10/23/2025 1:38 PM EST 10/23/2025 3:04 PM EST Comment:Aspirate, Abscess Narrative Organism Antibiotic Method Susceptibility E.coli Amoxicillin/Clavulanate (REPORT) BACTERIAL ALYSSA AND INTERPRETATION (MCG/ML) 84: Susceptible E.coli Ampicillin (REPORT) BACTERI AL ALYSSA AND INTERPRETATION (MCG/ML) >16: Resistant E.coli Cefazolin (REPORT) BACTERI AL ALYSSA AND INTERPRETATION (MCG/ML) <=1: Susceptible E.coli Ceftriaxone (REPORT) BACTERI AL ALYSSA AND INTERPRETATION (MCG/ML) <=1: Susceptible E.coli Ciprofloxacin (REPORT) BACTERI AL ALYSSA AND INTERPRETATION (MCG/ML) <=0.25: Susceptible E.coli Gentamicin (REPORT) BACTERI AL ALYSSA AND INTERPRETATION (MCG/ML) <=2: Susceptible E.coli Levofloxacin (REPORT) BACTERI AL ALYSSA AND INTERPRETATION (MCG/ML) <=0.5: Susceptible E.coli Tetracycline (REPORT) BACTERI AL ALYSSA AND INTERPRETATION (MCG/ML) <=2: Susceptible E.coli Tobramycin (REPORT) BACTERI AL ALYSSA AND INTERPRETATION (MCG/ML) <=2: Susceptible E.coli Trimethoprim/Sulfame thoxa zole (REPORT) BACTERIAL ALYSSA AND INTERPRETATION (MCG/ML) <=0.5/9.5: Susceptible E.coli Ampicillin/Sulbactam (REPORT) BA CTERIAL ALYSSA AND INTERPRETATION (MCG/ML) 8: Susceptible us Stanislav German MD MICROBIOLOGY - GENERAL ORDER UNA Final Result [facility] [address] [place] [address], [place] [address] [address] * Fungal Culture (non-blood) (10/23/2025 1:38 PM EST) Direct Smear Suggests No fungal elements 10/25/2025 11:29 AM EST [facility] Culture No fungus isolated 11/08/2025 7:55 AM EST [facility] Specimen from ovary / Unknown 10/23/2025 1:38 PM EST 10/23/2025 3:03 PM EST Comment:Aspirate, Abscess Stanislav German MD MICROBIOLOGY - GENERAL ORDER UNA Final Result Performing Organization Address City/[facility]/ZIP Co de Phone Number [facility] [address] [place] [address], [place] * (ABNORMAL) Anaerobic Culture (10/23/2025 1:38 PM EST) Culture Mixed anaerobic cabrera(A) 10/28/2025 12:08 PM EST [facility] Specimen from ovary / Unknown 10/23/2025 1:38 PM EST 10/23/2025 3:03 PM EST Comment:Aspirate, Abscess Stanislav German MD MICROBIOLOGY - GENERAL ORDER UNA Final Result [facility] [address] [place] [address], [place] * Cytology Report (10/23/2025 1:25 PM EST) Report [facility] [id number] CLIA ID [id number] [address] [place] [address] / [phone] Cytopathology Report PATIENT NAME: SIS VALDEZ [facility] REC NUMBER: [id number] (AGE): 1970 (Age: 55) SPECIMEN NUMBER: [id number] DATE OBTAINED: 10/23/2025 DIAGNOSIS: A. LEFT OVARIAN CYST FLUID WITH CELL BLOCK: NEGATIVE FOR MALIGNANT CELLS. MIXED INFLAMMATORY CELLS. a/10/26/2025 Electronically Signed Out HAI ALY MD Signout Facility: [facility] [address] [place], [place] CLIA #: [id number] Clinical Diagnosis and History: LEFT OVARIAN CYST FLUID Tissue(s) Submitted: A: LEFT OVARIAN Cyst Fluid WITH CELL BLOCK Specimen Description: RECEIVED 10 MLS CLOUDY RED FLUID W/ CLOT [1 THINPREP MADE] PLUS CELL BLOCK 1 SLIDE TOTAL AND CELL BLOCK, TIME IN FORMALIN 08:00 HOSPITAL LAB 10/23/2025 1:25 PM EST 10/25/2025 7:05 AM EST Comment:LEFT OVARIAN Cyst Fl uid WITH CELL BLOCK us Bibiana Mcwilliams MD PATHOLOGY/CYTOLOGY ORDERABLES Final Result [facility]ITAL [facility] See Below * (ABNORMAL) Aerobic culture (Gram stain included) (10/23/2025 12:46 PM EST) Gram stain suggestive of Many neutrophils No squamous cells Red blood cells Gram positive cocci 10/23/2025 6:48 PM [facility] Culture E.coli(A) 10/27/2025 9:40 AM [facility] Culture Enterococcus species Susceptibilites performed by E-test. (A) 10/27/2025 9:40 AM [facility] Culture Streptococcus constellatus(A) 10/27/2025 9:40 AM [facility] Structure of sacral vertebral column / Unknown 10/23/2025 12:46 PM EST 10/23/2025 3:08 PM EST Comment:Aspirate, Abscess Narrative Organism Antibiotic Method Susceptibility E.coli Amoxicillin/Clavulan a te (REPORT) BACTERIAL ALYSSA AND INTERPRETATION (MCG/ML) 8/4: Susceptible E.coli Ampicillin (REPORT) BACTERI AL ALYSSA AND INTERPRETATION (MCG/ML) >16: Resistant E.coli Cefazolin (REPORT) BACTERI AL ALYSSA AND INTERPRETATION (MCG/ML) <=1: Susceptible E.coli Ceftriaxone (REPORT) BACTERI AL ALYSSA AND INTERPRETATION (MCG/ML) <=1: Susceptible E.coli Ciprofloxacin (REPORT) BACTERI AL ALYSSA AND INTERPRETATION (MCG/ML) <=0.25: Susceptible E.coli Gentamicin (REPORT) BACTERI AL ALYSSA AND INTERPRETATION (MCG/ML) <=2: Susceptible E.coli Levofloxacin (REPORT) BACTERI AL ALYSSA AND INTERPRETATION (MCG/ML) <=0.5: Susceptible E.coli Tetracycline (REPORT) BACTERI AL ALYSSA AND INTERPRETATION (MCG/ML) <=2: Susceptible E.coli Tobramycin (REPORT) BACTERI AL ALYSSA AND INTERPRETATION (MCG/ML) <=2: Susceptible E.coli Trimethoprim/Sulfame t hoxazole (REPORT) BACTERIAL ALYSSA AND INTERPRETATION (MCG/ML) <=0.5/9.5: Susceptible E.coli Ampicillin/Sulbactam (REPORT) BA CTERIAL ALYSSA AND INTERPRETATION (MCG/ML) 8/4: Susceptible Enterococcus species Ampicillin (REPORT) BA CTERIAL ALYSSA AND INTERPRETATION (MCG/ML) 0.25: Susceptible Enterococcus species Penicillin (REPORT) BA CTERIAL ALYSSA AND INTERPRETATION (MCG/ML) 0.38: Susceptible Stanislav German MD MICROBIOLOGY - GENERAL ORDER UNA Final Result [facility] [address] [place] [address], [place] [address] * Fungal Culture (non-blood) (10/23/2025 12:46 PM EST) Direct Smear Suggests No fungal elements 10/25/2025 11:28 AM EST [facility] Culture No fungus isolated 11/08/2025 7:55 AM EST [facility] Structure of sacral vertebral column / Unknown 10/23/2025 12:46 PM EST 10/23/2025 3:08 PM EST Comment:Aspirate, Abscess Stanislav German MD MICROBIOLOGY - GENERAL ORDER UNA Final Result Performing Organization Address City/[facility]/ZIP Co de Phone Number [facility] [address] [place] [address], * (ABNORMAL) Anaerobic Culture (10/23/2025 12:46 PM EST) Pathologist [facility] Culture Mixed anaerobic cabrera(A) 10/28/2025 12:07 PM EST [facility] Structure of sacral vertebral column / Unknown 10/23/2025 12:46 PM EST 10/23/2025 3:07 PM EST Comment:Aspirate, Abscess Stanislav German MD MICROBIOLOGY - GENERAL ORDER UNA Final Result Performing Organization Address [facility]/ZIP Co de Phone Number [facility] [address] [place] [address], * POCT Glucose, Fingerstick (10/23/2025 12:06 PM EST) POC Glucose 96 65 - 99 mg/dL 10/23/2025 1:01 PM EST Blood specimen / Unknown 10/23/2025 12:06 PM EST 10/23/2025 1:01 PM EST Stanislav German MD POINT OF CARE TEST ORDERABLE S Final Result Performing Organization Address [facility] Co de Phone Number HOSPITAL LAB See Below * (ABNORMAL) POCT Glucose, Fingerstick (10/23/2025 9:47 AM EST) POC Glucose 108(H) 65 - 99 mg/dL 10/23/2025 9:55 AM EST Blood specimen / Unknown 10/23/2025 9:47 AM EST 10/23/2025 9:55 AM EST Stanislav German MD POINT OF CARE TEST ORDERABLE S Final Result Performing Organization Address [facility] Co de Phone Number [facility] See Below * (ABNORMAL) TSH, HIGHLY SENSITIVE (10/23/2025 8:22 AM EST) TSH, Highly Sensitive 6.26(H) 0.27 - 4.20 mIU/L 10/23/2025 3:24 PM [facility] 10/23/2025 8:22 AM EST 10/23/2025 8:36 AM EST us Annika Milian MD LAB BLOOD ORDERABLES Final Resu lt Performing Organization Address [facility]/ZIP Co de Phone Number [address] [address], [address] [address] * (ABNORMAL) proBNP, N-terminal (10/23/2025 8:22 AM EST) [facility] proBNP, N-terminal 1,039(H) <125 pg/mL 10/23/2025 3:24 PM [facility] 10/23/2025 8:22 AM EST 10/23/2025 8:36 AM EST us Annika Milian MD LAB BLOOD ORDERABLES Final Resu lt Performing Organization Address [facility] Co de Phone Number [address] [address], [address] [address] * (ABNORMAL) High Sensitivity Troponin T (10/23/2025 8:22 AM EST) [facility] High Sensitivity Troponin T 24(H) <15 ng/L 10/23/2025 3:24 PM [facility] [place] (Change) NO PREVIOUS RESULT <3 10/23/2025 3:24 PM [facility] 10/23/2025 8:22 AM EST 10/23/2025 8:36 AM EST us Annika Milian MD LAB BLOOD ORDERABLES Final Resu lt Performing Organization Address City/[facility]/ZIP Co de Phone Number [address] [address], [address] [address] * Phosphorus (10/23/2025 8:22 AM EST) Pathologist [facility] Phosphorus 4.5 2.7 - 4.5 mg/dL 10/23/2025 10:22 AM EST [facility] 10/23/2025 8:22 AM EST 10/23/2025 8:36 AM EST us Annika Milian MD LAB BLOOD [place] [address], [place] [address] * Magnesium (10/23/2025 8:22 AM EST) Pathologist [facility] Magnesium 2.1 1.6 - 2.7 mg/dL 10/23/2025 10:22 AM [facility] 10/23/2025 8:22 AM EST 10/23/2025 8:36 AM EST us Annika Milian MD LAB BLOOD ORDERABLES Final Resu lt Performing Organization Address [facility] [place] [address], [place] [address] * (ABNORMAL) Hemoglobin A1c with Estimated Average Glucose (10/23/2025 8:22 AM EST) Pathologist [facility] Hemoglobin A1C 9.0(H) <5.7 % 10/23/2025 9:22 AM [facility] Comment: A1c% Interpretation 5.7 - 6.0 Increase risk of diabetes 6.1 - 6.4 Higher risk of diabetes > or = 6.5 Consistent with diabetes Diabetes Care, 33(Supp 1):S1-S61, 2010 Estimated Average Glucose 212 mg/dL 10/23/2025 9:22 AM [facility] Blood Blood specimen / Unknown 10/23/2025 8:22 AM EST 10/23/2025 8:36 AM EST us Annika Milian MD LAB BLOOD ORDERABLES Final Resu lt [address] [address], [address] [address] * (ABNORMAL) Basic Metabolic Panel (10/23/2025 8:22 AM EST) Glucose 94 65 - 99 mg/dL 10/23/2025 9:18 AM [facility] Comment:Fasting: <100 mg/dL, Non-Fasting: <200 mg/dL (ADA 2005) Blood Urea Nitrogen (BUN) 43(H) 8 - 21 mg/dL 10/23/2025 9:18 AM [facility] Creatinine 3.12(H) 0.40 - 1.10 mg/dL 10/23/2025 9:18 AM [facility] eGFR 17(L) >59 10/23/2025 9:18 AM [facility] Comment:CKD-EPI (2020) in mL /min/1.73 sq meters. Sodium 134(L) 136 - 145 mmol/L 10/23/2025 9:18 AM [facility] Potassium 3.7 3.4 - 5.3 mmol/L 10/23/2025 9:18 AM [facility] Chloride 101 98 - 107 mmol/L 10/23/2025 9:18 AM [facility] CO2 21(L) 22 - 33 mmol/L 10/23/2025 9:18 AM [facility] Anion Gap 12 7 - 17 10/23/2025 9:18 AM [facility] Calcium 8.0(L) 8.7 - 10.5 mg/dL 10/23/2025 9:18 AM [facility] BUN/Creatinine Ratio 14 10.0 - 25.0 Ratio 10/23/2025 9:18 AM [facility] Blood Blood specimen / Unknown 10/23/2025 8:22 AM EST 10/23/2025 8:36 AM EST us Annika Milian MD LAB BLOOD ORDERABLES Final Resu lt [address] [address], [place] [address] * (ABNORMAL) Complete Blood Count, with Differential (10/23/2025 8:22 AM [facility]) Pathologist [facility] White Blood Cell Count 26.1(H) 4.0 - 11.0 Thou/uL 10/23/2025 8:44 AM [facility] Platelet Count 425 150 - 450 Thou/uL 10/23/2025 8:44 AM [facility] Hemoglobin 7.6(L) 11.7 - 15.7 g/dL 10/23/2025 8:44 AM [facility] Hematocrit 23.6(L) 35.0 - 47.0 % 10/23/2025 8:44 AM [facility] Red Blood Cell Count 2.92(L) 4.00 - 5.40 Mil/uL 10/23/2025 8:44 AM [facility] MCV 81 80 - 100 fL 10/23/2025 8:44 AM [facility] MCH 26.0(L) 27.0 - 31.0 pg 10/23/2025 8:44 AM [facility] MCHC 32.2 30.0 - 36.0 g/dL 10/23/2025 8:44 AM [facility] RDW 16.1(H) 11.5 - 14.5 % 10/23/2025 8:44 AM [facility] MPV 10.0 7.5 - 12.5 fL 10/23/2025 8:44 AM [facility] Myelocytes 1 % 10/23/2025 9:40 AM [facility] Neutrophils Man 84 % 9:40 AM [facility] Lymphocytes Man 9 % 9:40 AM [facility] Monocytes Man 4 % 10/23/2025 9:40 AM [facility] Basophils Man 2 % 10/23/2025 9:40 AM [facility] Abs Myelocytes 0.3(H) 0 Thou/uL 10/23/2025 9:40 AM [facility] Abs Neutrophils Count (ANC) 21.9(H) 2.0 - 7.5 Thou/uL 10/23/2025 9:40 AM [facility] Abs Lymphocytes Man 2.4 1.5 - 4.5 Thou/uL 10/23/2025 9:40 AM [facility] Abs Monocytes Man 1.0 0.2 - 1.5 Thou/uL 10/23/2025 9:40 AM [facility] Abs Basophils Man 0.5(H) 0.0 - 0.2 Thou/uL 10/23/2025 9:40 AM [facility] Normochromic Present 10/23/2025 9:40 AM [facility] Normocytic Present 10/23/2025 9:40 AM [facility] Target Cells Occasional 10/23/2025 9:40 AM [facility] Smear Comment See Comment 10/23/2025 9:40 AM [facility] Comment:WBC: Vacuolization p resent. Hypersegmented neutrophils present. Reactive lymphs. Blood Blood specimen / Unknown 10/23/2025 8:22 AM EST 10/23/2025 8:36 AM EST Annika Milian MD LAB BLOOD ORDERABLES Final Resu lt Performing Organization Address [facility]/[place] [address], [place] [address] * POCT Glucose, Fingerstick (10/23/2025 2:46 AM EST) POC Glucose 68 65 - 99 mg/dL 10/23/2025 3:15 AM EST Blood specimen / Unknown 10/23/2025 2:46 AM EST 10/23/2025 3:15 AM EST Stanislav German MD POINT OF CARE TEST ORDERABLE S Final Result HOSPITAL LAB See Below * VITAMIN B12 (10/23/2025 2:22 AM EST) Vitamin B12 477 243 - 894 pg/mL 10/23/2025 3:37 AM EST [facility] 10/23/2025 2:22 AM EST 10/23/2025 2:31 AM EST us Annika Milian MD LAB BLOOD ORDERABLES Final Resu lt Performing Organization Address City/[facility]/ZIP Co de Phone Number [facility] [address] [place] [address], [facility] [address] [place] [address] * (ABNORMAL) Iron and Total Iron Binding Capacity (10/23/2025 2:22 AM EST) Iron 16(L) 59 - 151 ug/dL 10/23/2025 3:37 AM [facility] UIBC 110(L) 112 - 346 ug/dL 10/23/2025 3:37 AM [facility] Total Iron Binding Capacity 126 100 - 400 ug/dL 10/23/2025 3:37 AM [facility] Iron Sat 13(L) 20 - 50 % 10/23/2025 3:37 AM [facility] 10/23/2025 2:22 AM EST 10/23/2025 2:31 AM EST us Annika Milian MD LAB BLOOD ORDERABLES Final Resu lt Performing Organization Address City/[facility]/ZIP Co de Phone Number [facility] [address] [place] [address], [address] [address] * (ABNORMAL) FERRITIN (10/23/2025 2:22 AM EST) Ferritin 1,172(H) 30 - 400 ug/L 10/23/2025 3:37 AM [facility] 10/23/2025 2:22 AM EST 10/23/2025 2:31 AM EST us Annika Milian MD LAB BLOOD ORDERABLES Final Resu lt Performing Organization Address City/[facility]/ZIP Co de Phone Number [address] [address], [address] [address] * Vancomycin Level, Random (10/23/2025 2:22 AM EST) Vancomycin, Random 16 mg/L 10/23/2025 3:37 AM [facility] Comment:No reference range e stablished for random levels. Time of Last Dose Information not given 10/23/2025 1:58 AM [facility] Blood Blood specimen / Unknown 10/23/2025 2:22 AM EST 10/23/2025 2:31 AM EST Annika Milian MD LAB BLOOD ORDERABLES Final Resu lt [facility] [address] [place] [address], [facility] [address] [place] [address] * (ABNORMAL) COMPLETE BLOOD COUNT, WITHOUT DIFFERENTIAL (10/23/2025 1:55 AM EST) White Blood Cell Count 26.5(H) 4.0 - 11.0 Thou/uL 10/23/2025 2:22 AM [facility] Platelet Count 390 150 - 450 Thou/uL 10/23/2025 2:22 AM [facility] Hemoglobin 7.4(L) 11.7 - 15.7 g/dL 10/23/2025 2:22 AM [facility] Hematocrit 22.6(L) 35.0 - 47.0 % 10/23/2025 2:22 AM [facility] Red Blood Cell Count 2.82(L) 4.00 - 5.40 Mil/uL 10/23/2025 2:22 AM [facility] MCV 80 80 - 100 fL 10/23/2025 2:22 AM [facility] MCH 26.2(L) 27.0 - 31.0 pg 10/23/2025 2:22 AM [facility] MCHC 32.7 30.0 - 36.0 g/dL 10/23/2025 2:22 AM [facility] RDW 16.1(H) 11.5 - 14.5 % 10/23/2025 2:22 AM [facility] MPV 10.0 7.5 - 12.5 fL 10/23/2025 2:22 AM [facility] Blood Blood specimen / Unknown 10/23/2025 1:55 AM EST 10/23/2025 2:15 AM EST us Annika Milian MD LAB BLOOD ORDERABLES Final Resu lt Performing Organization Address City/[facility]/[place] [address], [place] [address] * Ammonia Level (10/23/2025 1:55 AM EST) Ammonia, Plasma 44 11 - 51 umol/L 10/23/2025 2:53 AM EST [facility] Blood Blood specimen / Unknown 10/23/2025 1:55 AM EST 10/23/2025 2:08 AM EST us Annika Milian MD LAB BLOOD ORDERABLES Final Resu Performing Organization Address [facility] [place] [address], [place] [address] * US Shake Loader Pelvis Transabdominal with US Shake Loader Transvaginal (10/23/2025 12:16 AM EST) Anatomical Region Laterality Modality Pelvis Ultrasound 10/22/2025 11:1 7 PM EST Impressions 10/23/2025 12:56 AM EST Significantly limited examination. The ovaries are not visualized secondary to overlying bowel gas and difficulty in positioning/compliance during the exam. Partial visualization of complex free intraperitoneal fluid. Ill-defined fluid collections with surrounding debris and septations as well as areas of increased vascularity within the right and left adnexal regions. Findings may represent abscesses/phlegmon. Frontal myometrial uterine fibroid measuring 4.8 cm in diameter. Interpreted by: Santiago Elena MD Weed Control Inspector I personally reviewed the images and the resident's preliminary report and AGREE with the report as it is now presented ([id number]). Narrative 10/23/2025 12:56 AM EST EXAMINATION: ULTRASOUND OF THE PELVIS CLINICAL INFORMATION: Collection in left adnexa with multisystic ovary, fluid, gas.. COMPARISON: CT abdomen and pelvis 10/22/2025, 2:20 PM.. TECHNIQUE: Transabdominal and transvaginal pelvic ultrasound. Doppler evaluation with spectral analysis was performed. A transvaginal study was performed in addition to the transabdominal study which did not yield an adequate examination of the uterus and ovaries due to superimposed distended gas-filled loops of bowel. FINDINGS: The uterus is normal in size and appearance, measuring 12 x 4.9 x 5.8 cm longitudinally, anteroposteriorly and transversely. The endometrial stripe thickness is normal, measuring 0.8 cm in thickness. Fundal fibroid measuring 4.6 x 4.8 x 4 cm with The ovaries are not visualized. There is a ill-defined fluid collections with surrounding debris and septations as well as areas of increased vascularity within the right and left adnexal regions. Procedure Note Narayan Skelton MD - 10/23/2025 EXAMINATION: ULTRASOUND OF THE PELVIS CLINICAL INFORMATION: Collection in left adnexa with multisystic ovary, fluid, gas.. COMPARISON: CT abdomen and pelvis 10/22/2025, 2:20 PM.. TECHNIQUE: Transabdominal and transvaginal pelvic ultrasound. Doppler evaluation with spectral analysis was performed. A transvaginal study was performed in addition to the transabdominal study which did not yield an adequate examination of the uterus and ovaries due to superimposed distended gas-filled loops of bowel. FINDINGS: The uterus is normal in size and appearance, measuring 12 x 4.9 x 5.8 cm longitudinally, anteroposteriorly and transversely. The endometrial stripe thickness is normal, measuring 0.8 cm in thickness. Fundal fibroid measuring 4.6 x 4.8 x 4 cm with The ovaries are not visualized. There is a ill-defined fluid collections with surrounding debris and septations as well as areas of increased vascularity within the right and left adnexal regions. IMPRESSION: Significantly limited examination. The ovaries are not visualized secondary to overlying bowel gas and difficulty in positioning/compliance during the exam. Partial visualization of complex free intraperitoneal fluid. Ill-defined fluid collections with surrounding debris and septations as well as areas of increased vascularity within the right and left adnexal regions. Findings may represent abscesses/phlegmon. Frontal myometrial uterine fibroid measuring 4.8 cm in diameter. Interpreted by: Santiago Elena MD Weed Control Inspector I personally reviewed the images and the resident's preliminary report and AGREE with the report as it is now presented ([email or web address]). Stanislav German MD IMG US ORDERABLES Final Resu lt * Nasal MRSA Screen, PCR (10/23/2025 12:05 AM EST) MRSA Result Not Detected Not Detected 2:54 AM [facility] Comment:Performed by the Xpe rt MRSA NxG Assay Swab, Anterior Nares Specimen from nose / Unknown 10/23/2025 12:05 AM EST 10/23/2025 12:25 AM EST James Andrews MD MICROBIOLOGY - GENERAL ORDERAB LES Final Result Performing Organization Address [facility] de [facility] [place] [address], [place] [address] * Lactate Level X 2 (10/22/2025 9:04 PM EST) Pathologist [facility] Lactic Acid 0.7 0.5 - 1.9 mmol/L 10/22/2025 10:12 PM [facility] Blood Blood specimen / Unknown 10/22/2025 9:04 PM EST 10/22/2025 9:32 PM EST us James Andrews MD LAB BLOOD ORDERABLES Final Res ult Performing Organization Address [facility] de [facility] [place] [address], [place] [address] * Blood Culture (10/22/2025 7:18 PM EST) Culture Sterile after 5 days 10/27/2025 7:53 AM [facility] Blood (Blood, Peripheral Line) 10/22/2025 7:18 PM EST 10/22/2025 9:18 PM EST Comment:Blood us James Andrews MD LAB BLOOD ORDERABLES Final Res ult Performing Organization Address [facility] Co de Phone Number [facility] [address] [place] [address], [place] * ECG 12 lead (10/22/2025 7:01 PM EST) Ventricular rate 116 BPM EKG [facility] Atrial rate 116 BPM EKG [facility] P-R interval 170 ms EKG [facility] QRS duration 90 ms EKG [facility] Q-T interval 322 ms EKG [facility] QTC calculation (Bazett) 448 ms EKG [facility] P axis 64 degrees EKG [facility] R axis -12 degrees EKG [facility] T axis 71 degrees [facility] 10/22/2025 7:01 PM EST Narrative EKG [facility] - 10/22/2025 9:20 PM EST Sinus tachycardia Low voltage QRS Cannot rule out Anterior infarct , age undetermined Abnormal ECG No previous ECGs available Confirmed by MD Sanches Maximilian ([id number]) on 10/22/2025 9:20:01 PM Procedure Note Francisco Sanches MD - 10/22/2025 Sinus tachycardia Low voltage QRS Cannot rule out Anterior infarct , age undetermined Abnormal ECG No previous ECGs available Confirmed by MD Sanches Maximilian ([id number]) on 10/22/2025 9:20:01 PM us James Andrews MD ECG ORDERABLES Edited Result - Final [facility] * Blood Culture (10/22/2025 6:57 PM EST) Culture Sterile after 5 days 10/27/2025 7:53 AM EST [facility] Blood (Blood, Peripheral Line) 10/22/2025 6:57 PM EST 10/22/2025 9:15 PM EST Comment:Blood us James Andrews MD LAB BLOOD ORDERABLES Final Res ult [facility] [address] [place] [address], [place] * ABO Confirmation (10/22/2025 6:20 PM EST) ABO/Rh O NEGATIVE 10/22/2025 8:04 PM EST [facility] Blood Blood specimen / Unknown 10/22/2025 6:20 PM EST 10/22/2025 7:23 PM EST us James Andrews MD BLOOD BANK TEST ORDERABLES Fin al Result [address] [address], [address] [address] * (ABNORMAL) Reflexive Urine Culture (10/22/2025 6:19 PM EST) Culture Klebsiella pneumoniae 1000 col/mL (A) 10/24/2025 2:18 PM EST [facility] Urine specimen obtained via straight catheter / Unknown 10/22/2025 6:19 PM EST 10/22/2025 8:31 PM EST Comment:Urine Narrative Organism Antibiotic Method Susceptibility Klebsiella pneumoniae Amoxicillin/Clavulanat e (REPORT) BACTERIAL ALYSSA AND INTERPRETATION (MCG/ML) <=4/2: Susceptible Klebsiella pneumoniae Ampicillin (REPORT) BACTERIAL ALYSSA AND INTERPRETATION (MCG/ML) >16: Resistant Klebsiella pneumoniae Cefazolin (REPORT) BACTERIAL ALYSSA AND INTERPRETATION (MCG/ML) 2: Susceptible Klebsiella pneumoniae Ceftriaxone (REPORT) BACTERIAL ALYSSA AND INTERPRETATION (MCG/ML) <=1: Susceptible Klebsiella pneumoniae Ciprofloxacin (REPORT) BACTERIAL ALYSSA AND INTERPRETATION (MCG/ML) <=0.25: Susceptible Klebsiella pneumoniae Gentamicin (REPORT) BACTERIAL ALYSSA AND INTERPRETATION (MCG/ML) <=2: Susceptible Klebsiella pneumoniae Levofloxacin (REPORT) BACTERIAL ALYSSA AND INTERPRETATION (MCG/ML) <=0.5: Susceptible Klebsiella pneumoniae Nitrofurantoin (REPORT) BACTERIAL ALYSSA AND INTERPRETATION (MCG/ML) 64: Intermediate Klebsiella pneumoniae Tetracycline (REPORT) BACTERIAL ALYSSA AND INTERPRETATION (MCG/ML) <=2: Susceptible Klebsiella pneumoniae Tobramycin (REPORT) BACTERIAL ALYSSA AND INTERPRETATION (MCG/ML) <=2: Susceptible Klebsiella pneumoniae Trimethoprim/Sulfameth oxazole (REPORT) BACTERIAL ALYSSA AND INTERPRETATION (MCG/ML) <=0.5/9.5: Susceptible Klebsiella pneumoniae Ampicillin/Sulbactam (REPORT) BACTERIAL ALYSSA AND INTERPRETATION (MCG/ML) 8/4: Susceptible us James Andrews MD MICROBIOLOGY - GENERAL ORDERAB LES Final Result Performing Organization Address [facility] Co de Phone Number [facility] [address] [place] [address], * Creatinine, urine, random (10/22/2025 6:19 PM EST) Creatinine, Urine, Random 88 mg/dL 10/22/2025 9:13 PM EST [facility] Comment:Reference range not established for random specimen. Urine Urine specimen / Unknown 10/22/2025 6:19 PM EST 10/22/2025 8:27 PM EST us James Andrews MD URINE ORDERABLES Final Result Performing Organization Address [facility] Co de Phone Number [address] [address], [address] [address] * Chloride, Urine, Random (10/22/2025 6:19 PM EST) Chloride, Urine, Random <20 mmol/L 10/22/2025 9:13 PM EST [facility] Comment:Reference range not established for random specimen. Urine Urine specimen / Unknown 10/22/2025 6:19 PM EST 10/22/2025 8:27 PM EST us James Andrews MD URINE ORDERABLES Final Result Performing Organization Address [facility] Co de Phone Number [address] [address], [address] [address] * Potassium, Urine, Random (10/22/2025 6:19 PM EST) Potassium, Urine (Random) 22 mmol/L 10/22/2025 9:13 PM [facility] Comment:Reference range not established for random specimen. Urine Urine specimen / Unknown 10/22/2025 6:19 PM EST 10/22/2025 8:27 PM EST us James Andrews MD URINE ORDERABLES Final Result Performing Organization Address [facility] [place] [address], [place] [address] * Sodium, Urine, Random (10/22/2025 6:19 PM EST) Sodium, Urine Random 21 mmol/L 10/22/2025 9:13 PM [facility] Comment:Reference range not established for random specimen. Urine Urine specimen / Unknown 10/22/2025 6:19 PM EST 10/22/2025 8:27 PM EST us James Andrews MD URINE ORDERABLES Final Result Performing Organization Address [facility] [place] [address], [place] [address] * (ABNORMAL) Urinalysis with Reflex to Microscopic and Culture (10/22/2025 6:19 PM EST) Color Yellow 10/22/2025 8:52 PM [facility] Clarity Cloudy 10/22/2025 8:52 PM [facility] Specific [place] 1.010 1.005 - 1.030 10/22/2025 8:52 PM [facility] pH 5.0 5.0 - 8.0 10/22/2025 8:52 PM [facility] Leukocyte Esterase Moderate(A) Negative 10/22/2025 8:52 PM [facility] Nitrite Negative Negative 10/22/2025 8:52 PM [facility] Protein Trace(A) Negative mg/dL 10/22/2025 8:52 PM [facility] Glucose Negative Negative mg/dL 10/22/2025 8:52 PM [facility] Ketones Negative Negative mg/dL 10/22/2025 8:52 PM [facility] Blood Small(A) Negative 10/22/2025 8:52 PM [facility] Bilirubin Negative Negative 10/22/2025 8:52 PM [facility] RBC 1 0 - 4 per hpf 10/22/2025 8:52 PM [facility] WBC >25(H) 0 - 4 per hpf 10/22/2025 8:52 PM [facility] Epithelial Cells 2 per hpf 10/22/2025 8:52 PM [facility] Casts 17(H) 0 - 4 per lpf 10/22/2025 8:52 PM [facility] Comment:Casts are hyaline un less otherwise noted. Bacteria Present(A) Absent 10/22/2025 8:52 PM [facility] Comment:Presence of bacteria does not necessarily indicate a UTI. Please correlate with degree of pyuria and presence of clinical symptoms for UTI. Hyaline Casts Present per f 10/22/2025 8:52 PM [facility] Urine Urine specimen obtained via straight catheter / Unknown 10/22/2025 6:19 PM EST 10/22/2025 8:31 PM EST us James Andrews MD URINE [place] [address], [place] [address] * APTT (10/22/2025 6:18 PM EST) Anticoagulant NO ANTI COAGULANT MEDS 10/22/2025 6:18 PM [facility] Partial Thromboplastin Time (PTT) 26 25 - 36 seconds 10/22/2025 7:33 PM [facility] Comment:Anti-Xa is the labor atory standard for heparin monitoring. Use of aPTT for unfractionated heparin in patients receiving DOACs may be performed at the clinician's discretion. Blood Blood specimen / Unknown 10/22/2025 6:18 PM EST 10/22/2025 7:03 PM EST us James Andrews MD LAB BLOOD ORDERABLES Final Res ult Performing Organization Address City/[facility]/ZIP Co de Phone Number [address] [address], [address] [address] * Lactate Level X 2 (10/22/2025 6:18 PM EST) Pathologist [facility] Lactic Acid 0.9 0.5 - 1.9 mmol/L 10/22/2025 7:37 PM [facility] Blood Blood specimen / Unknown 10/22/2025 6:18 PM EST 10/22/2025 7:02 PM EST us James Andrews MD LAB BLOOD ORDERABLES Final Res ult Performing Organization Address [facility] [place] [address], [address] [address] * (ABNORMAL) INR (10/22/2025 6:18 PM EST) [facility] Anticoagulant OTHER AGENT OR UNKNOWN 10/22/2025 6:18 PM [facility] Prothrombin Time (PT) 15.0(H) 10.0 - 13.5 seconds 10/22/2025 7:33 PM [facility] INR 1.3 10/22/2025 7:33 PM [facility] Comment:INR Therapeutic Rang es: Standard dose anticoagulant 2.0 to 3.0, High dose anticoagulant 2.5-3.5. Blood Blood specimen / Unknown 10/22/2025 6:18 PM EST 10/22/2025 7:03 PM EST us James Andrews MD LAB BLOOD ORDERABLES Final Res ult Performing Organization Address [facility] [place] [address], [place] [address] * Lipase (10/22/2025 6:18 PM EST) Pathologist [facility] Lipase 32 13 - 60 U/L 10/22/2025 7:40 PM [facility] Blood Blood specimen / Unknown 10/22/2025 6:18 PM EST 10/22/2025 7:03 PM EST us James Andrews MD LAB BLOOD ORDERABLES Final Res ult [address] [address], [address] [address] * (ABNORMAL) Comprehensive Metabolic Panel (10/22/2025 6:18 PM EST) Glucose 85 65 - 99 mg/dL 10/22/2025 7:40 PM [facility] Comment:Fasting: <100 mg/dL, Non-Fasting: <200 mg/dL (ADA 2004) Blood Urea Nitrogen (BUN) 45(H) 8 - 21 mg/dL 10/22/2025 7:40 PM [facility] Creatinine 3.83(H) 0.40 - 1.10 mg/dL 10/22/2025 7:40 PM [facility] eGFR 13(L) >59 10/22/2025 7:40 PM [facility] Comment:CKD-EPI (2020) in mL /min/1.73 sq meters. Sodium 135(L) 136 - 145 mmol/L 10/22/2025 7:40 PM [facility] Potassium 3.2(L) 3.4 - 5.3 mmol/L 10/22/2025 7:40 PM [facility] Chloride 96(L) 98 - 107 mmol/L 10/22/2025 7:40 PM [facility] CO2 20(L) 22 - 33 mmol/L 10/22/2025 7:40 PM [facility] Calcium 7.8(L) 8.7 - 10.5 mg/dL 10/22/2025 7:40 PM [facility] Alkaline Phosphatase 125(H) 32 - 122 U/L 10/22/2025 7:40 PM [facility] Aspartate Aminotrans (AST) 56(H) 10 - 50 U/L 10/22/2025 7:40 PM [facility] Alanine Aminotrans (ALT) 28 10 - 50 U/L 10/22/2025 7:40 PM [facility] Bilirubin, Total 0.3 0.2 - 1.0 mg/dL 10/22/2025 7:40 PM [facility] Protein, Total 7.2 6.3 - 8.3 g/dL 10/22/2025 7:40 PM [facility] Albumin 3.5 3.5 - 5.0 g/dL 10/22/2025 7:40 PM [facility] BUN/Creatinine Ratio 12 10.0 - 25.0 Ratio 10/22/2025 7:40 PM [facility] Globulin 3.7 1.5 - 3.9 g/dL 10/22/2025 7:40 PM [facility] Albumin/Globulin Ratio 0.9(L) 1.0 - 3.0 Ratio 10/22/2025 7:40 PM [facility] Anion Gap 19(H) 7 - 17 10/22/2025 7:40 PM [facility] Blood Blood specimen / Unknown 10/22/2025 6:18 PM EST 10/22/2025 7:03 PM EST us James Andrews MD LAB BLOOD ORDERABLES Final Res ult Performing Organization Address City/State/[facility] [place] [address], [place] [address] * (ABNORMAL) Complete Blood Count, with Differential (10/22/2025 6:18 PM EST) White Blood Cell Count 26.9(H) 4.0 - 11.0 Thou/uL 10/22/2025 7:13 PM [facility] Platelet Count 389 150 - 450 Thou/uL 10/22/2025 7:13 PM [facility] Hemoglobin 7.0(L) 11.7 - 15.7 g/dL 10/22/2025 7:13 PM [facility] Hematocrit 21.6(L) 35.0 - 47.0 % 10/22/2025 7:13 PM [facility] Red Blood Cell Count 2.71(L) 4.00 - 5.40 Mil/uL 10/22/2025 7:13 PM [facility] MCV 80 80 - 100 fL 10/22/2025 7:13 PM [facility] MCH 25.8(L) 27.0 - 31.0 pg 10/22/2025 7:13 PM [facility] MCHC 32.4 30.0 - 36.0 g/dL 10/22/2025 7:13 PM [facility] RDW 16.0(H) 11.5 - 14.5 % 10/22/2025 7:13 PM [facility] MPV 9.7 7.5 - 12.5 fL 10/22/2025 7:13 PM [facility] Bands Man 6 % 10/22/2025 8:09 PM [facility] Neutrophils Man 80 % 8:09 PM [facility] Comment:Dohle Bodies present . Hypersegmented neutrophils present. Lymphocytes Man 9 % 8:09 PM [facility] Monocytes Man 4 % 10/22/2025 8:09 PM [facility] Basophils Man 1 % 10/22/2025 8:09 PM [facility] Abs Neutrophils Count (ANC) 23.1(H) 2.0 - 7.5 Thou/uL 10/22/2025 8:09 PM [facility] Abs Lymphocytes Man 2.4 1.5 - 4.5 Thou/uL 10/22/2025 8:09 PM [facility] Abs Monocytes Man 1.1 0.2 - 1.5 Thou/uL 10/22/2025 8:09 PM [facility] Abs Basophils Man 0.3(H) 0.0 - 0.2 Thou/uL 10/22/2025 8:09 PM [facility] Normochromic Present 10/22/2025 8:09 PM [facility] Normocytic Present 10/22/2025 8:09 PM [facility] Blood Blood specimen / Unknown 10/22/2025 6:18 PM EST 10/22/2025 7:03 PM EST us James Andrews MD LAB BLOOD ORDERABLES Final Res ult [address] [address], [address] [address] * Type and Screen (10/22/2025 6:15 PM EST) ABO/Rh O NEGATIVE 10/22/2025 8:04 PM [facility] Antibody Screen NEGATIVE 10/22/2025 8:04 PM [facility] Specimen Expiration 10/25/2025 10/22/2025 8:04 PM [facility] Blood Bank Comment Second Sample needed for Blood Transfusion 10/22/2025 8:04 PM [facility] Blood Blood specimen / Unknown 10/22/2025 6:15 PM EST 10/22/2025 7:23 PM EST us James Andrews MD BLOOD BANK TEST ORDERABLES Fin al Result [address] [address], [address] [address] * POCT Glucose, Fingerstick (10/22/2025 6:12 PM EST) POC Glucose 96 65 - 99 mg/dL 10/22/2025 6:13 PM EST Blood specimen / Unknown 10/22/2025 6:12 PM EST 10/22/2025 6:13 PM EST Stanislav German MD POINT OF CARE TEST ORDERABLE S Final Result [facility] See Below documented in this encounter Visit Diagnoses Diagnosis Sepsis (HCC)- Primary Tubo-ovarian abscess Salpingitis and oophoritis not specified as acute, subacute, or chronic Ureteral obstruction Other ureteric obstruction Type 2 diabetes mellitus (HCC) Schizophrenia (HCC) Unspecified schizophrenia, unspecified condition Postoperative hypothyroidism Postsurgical hypothyroidism Obstructive sleep apnea syndrome Obstructive sleep apnea (adult) (pediatric) Gastroesophageal reflux disease Esophageal reflux Hyperlipidemia Other and unspecified hyperlipidemia Hypertension Unspecified essential hypertension Chronic obstructive lung disease (HCC) Chronic airway obstruction, not elsewhere classified Bipolar disorder (HCC) Bipolar disorder, unspecified Tubo-ovarian abscess Salpingitis and oophoritis not specified as acute, subacute, or chronic Urinary tract infection Urinary tract infection, site not specified MADELINE (acute kidney injury) Anemia Unspecified anemia Hypocalcemia Hypokalemia Hypopotassemia High anion gap metabolic acidosis Tubo-ovarian abscess Salpingitis and oophoritis not specified as acute, subacute, or chronic Ureteral obstruction Other ureteric obstruction documented in this encounter Admitting Diagnoses Diagnosis Sepsis (HCC) documented in this encounter Administered Medications Inactive Administered Medications - up to 1 most recent administrations Medication Order MAR Action Action Date Dose Rate Site dextrose 5 % (D5W) infusion 50 mL/hr, Intravenous, Continuous, Starting on Sat10/24/25 at 1000, For 10 hours New Bag 10/24/2025 10:07 AM EST 50 mL/hr 50 mL/hr lactated ringers (LR) infusion 100 mL/hr, Intravenous, Continuous, Starting on Sat10/25/25 at 2130 New Bag 10/27/2025 5:43 PM EST 100 mL/hr 100 mL/hr acetaminophen (OFIRMEV) injection 1,000 mg 1,000 mg, Intravenous, at 400 mL/hr, Every 6 hours, First dose on Sat10/26/25 at 0430, For 7 doses New Bag 10/27/2025 6:38 PM EST 1,000 mg 400 mL/hr acetaminophen (TYLENOL) tablet 975 mg 975 mg, Oral, Once, On Sat10/22/25 at 1818, For 1 dose Given 10/22/2025 6:51 PM EST 975 mg acetaminophen (TYLENOL) tablet 975 mg 975 mg, Oral, Every 6 hours PRN, mild pain 1-3, fever greater than 101.5, Starting on 10/23/25 at 0117, May use for pain when patient is tolerating PO Given 10/25/2025 12:20 AM EST 975 mg ampicillin-sulbactam (UNASYN) 3 g in sodium chloride-MBP (NS) 100 mL IVPB-MBP 3 g, Intravenous, Administer over 60 Minutes, Every 6 hours, First dose on Sat10/26/25 at 1800, All antimicrobials used at [facility] require an indication. Please complete the following documentation. Bacterial Infection Documented, Type of Therapy: Modification of Therapy, Indication: Intra-abdominal abscess New Bag 11/05/2025 7:10 AM EST 3 g 100 mL/hr ARIPiprazole (ABILIFY) tablet 20 mg 20 mg, Oral, Daily, First dose on 10/23/25 at 0900 Given 11/05/2025 10:07 AM EST 20 mg ascorbic acid (VITAMIN C) tablet 250 mg 250 mg, Oral, Daily, First dose on 10/23/25 at 0900, On hold since Sat10/26/2025 at 0415 until manually unheld Given 10/25/2025 10:18 AM EST 250 mg aspirin enteric coated (ECOTRIN LOW STRENGTH) tablet 81 mg 81 mg, Oral, Nightly, First dose on 10/23/25 at 2100, Do not crush, chew, or split tablet. Given 11/04/2025 10:58 PM EST 81 mg atorvastatin (LIPITOR) tablet 40 mg 40 mg, Oral, Nightly, First dose on 10/23/25 at 2100 Given 11/04/2025 10:58 PM EST 40 mg baclofen (LIORESAL) tablet 10 mg 10 mg, Oral, 3 times daily, First dose on 10/23/25 at 0800 Given 11/05/2025 10:08 AM EST 10 mg buPROPion (WELLBUTRIN XL) 24 hr tablet 300 mg 300 mg, Oral, Every morning, First dose on 10/23/25 at 0700, Do not crush, chew, or split tablet. Given 11/05/2025 10:09 AM EST 300 mg cefepime (MAXIPIME) 1 g in sodium chloride-MBP (NS) 100 mL IVPB-MBP 1 g, Intravenous, Administer over 3 Hours, Every 24 hours, First dose (after last reorder) on 10/23/25 at 0154, All antimicrobials used at [facility] require an indication. Please complete the following documentation. Bacterial Infection Suspected, Type of Therapy: New Therapy, Indication: Intra-abdominal abscess New Bag 10/23/2025 3:41 AM EST 1 g 33.3 mL/hr cefTRIAXone (ROCEPHIN) 2 g in sodium chloride-MBP (NS) 100 mL IVPB-MBP 2 g, Intravenous, at 200 mL/hr, Every 24 hours, First dose on 10/25/25 at 1000, All antimicrobials used at [facility] require an indication. Please complete the following documentation. Bacterial Infection Documented, Type of Therapy: New Therapy, Indication: Intra-abdominal abscess New Bag 10/26/2025 10:32 AM EST 2 g 200 mL/hr chlorhexidine gluconate 2 % wipes - daily CHG application Topical, Daily, First dose on 10/23/25 at 1630, For daily use in patients with Urethral Catheter, Central Line, Grijalva, or Port-a-Cath. Each pack = 6 wipes. Dose = 1 each. Given 10/24/2025 7:24 AM EST 1 each chlorhexidine gluconate 2 % wipes - daily CHG application Topical, Daily, First dose on 10/26/25 at 0900, For daily use in patients with Urethral Catheter, Central Line, Grijalva, or Port-a-Cath. Each pack = 6 wipes. Dose = 1 each. Given 10/26/2025 9:52 AM EST chlorhexidine gluconate 2 % wipes - daily CHG application Topical, Daily, First dose on Sat10/27/25 at 1700, For daily use in patients with Urethral Catheter, Central Line, Grijalva, or Port-a-Cath. Each pack = 6 wipes. Dose = 1 each. Given 10/28/2025 10:16 AM EST 1 each clindamycin (CLEOCIN) IVPB 900 mg in 50 mL D5W (premix) 900 mg, Intravenous, Administer over 30 Minutes, Every 8 hours, First dose on 10/23/25 at 0148, All antimicrobials used at [facility] require an indication. Please complete the following documentation. Bacterial Infection Suspected, Type of Therapy: New Therapy, Indication: Intra-abdominal abscess New Bag 10/23/2025 10:47 AM EST 900 mg 100 mL/hr clonazePAM (KlonoPIN) tablet 1 mg 1 mg, Oral, Every 12 hours PRN, anxiety, Starting on 10/23/25 at 0127, Hazardous Level Medium B Special Handling See Hazardous Medication Policy & Procedures for more information. Given 11/04/2025 11:03 PM EST 1 mg dextrose 5 % in lactated ringers (D5LR) infusion 100 mL/hr, Intravenous, Continuous, Starting on 10/23/25 at 0154, For 12 hours New Bag 10/23/2025 2:56 AM EST 100 mL/hr 100 mL/hr dextrose 50 % solution 12.5 g 12.5 g, Intravenous, Every 15 min PRN, low blood sugar, between 50 and 69 mg/dL, Starting on 10/23/25 at 0126, For patient with IV access who is NPO or unable to swallow. See Hypoglycemia Management guideline. Given 10/23/2025 5:48 PM EST 12.5 g dextrose 50 % solution 12.5 g 12.5 g, Intravenous, Every 15 min PRN, low blood sugar, between 50 and 69 mg/dL, Starting on Sat10/29/25 at 0824, For patient with IV access who is NPO or unable to swallow. See Hypoglycemia Management guideline. dextrose 50 % solution 25 g 25 g, Intravenous, Every 15 min PRN, low blood sugar, less than 50 mg/dL, Starting on Sat10/29/25 at 0824, For patient with IV access who is NPO or unable to swallow. See Hypoglycemia Management guideline. diclofenac (VOLTAREN) 1 % gel 2 g 2 g, Topical, 4 times daily, First dose on 10/23/25 at 0800, Use dosing card to measure dose. Do not apply to open wounds, eyes, or mucous membranes., Site of application: Other (please specify in comments), Other please specify: Areas of pain Given 11/04/2025 5:49 PM EST 2 g docusate sodium (COLACE) capsule 100 mg 100 mg, Oral, 2 times daily, First dose on 10/23/25 at 0128 Given 11/05/2025 10:07 AM EST 100 mg enoxaparin (LOVENOX) syringe 40 mg 40 mg, Subcutaneous, Every 24 hours scheduled, First dose on [place] 10/28/25 at 1100, Not for use in patients receiving dialysis.Indications:P rophylaxis of Venous Thromboembolism Given 11/05/2025 10:07 AM EST 40 mg Right Arm ferrous sulfate EC tablet 325 mg 325 mg, Oral, Daily, First dose on 10/23/25 at 0900, Administer ferrous sulfate 2 hours prior to, or 4 hours after antacids. Should be taken with water or juice on an empty stomach; may be administered with food to prevent irritation; however, not with cereals, dietary fiber, tea, coffee, eggs, or milk *DO NOT CHEW OR CRUSH* Given 11/05/2025 10:10 AM EST 325 mg gabapentin (NEURONTIN) capsule 300 mg 300 mg, Oral, Once, On Sat10/22/25 at 1847, For 1 dose Given 10/22/2025 6:51 PM EST 300 mg gabapentin (NEURONTIN) capsule 300 mg 300 mg, Oral, 3 times daily, First dose on Sat10/25/25 at 0230 Given 11/05/2025 10:09 AM EST 300 mg glucagon (GLUCAGEN) injection 1 mg 1 mg, Intramuscular, Daily PRN, low blood sugar, for Blood Glucose LESS than 70 mg/dL and NPO and no IV access, Starting on Sat10/29/25 at 0824, Glucagon may be repeated x 1 (for a total of 2 doses per hypoglycemic event) if patient remains hypoglycemic after first dose. Do not use with hepatic disease or alcohol intoxication. See Hypoglycemia Management guideline. Reconstitute vial with 1 mL sterile water for injection. glucose (GLUTOSE 15) 40 % oral gel 37.5 g 37.5 g (1 Tube), Oral, Every 15 min PRN, low blood sugar, between 50 and 69 mg/dL, Starting on Sat10/29/25 at 0824, Juice or soda is preferred for alert patients (4 oz juice or 6 oz soda). Use glucose gel for patients with fluid restriction. See Hypoglycemia Management guideline. Each 37.5 gram tube of glucose 40 % = 15 grams of glucose. glucose (GLUTOSE 15) 40 % oral gel 75 g 75 g (2 Tube), Oral, Every 15 min PRN, low blood sugar, less than 50 mg/dL, Starting on Sat10/29/25 at 0824, Juice or soda is preferred for alert patients (8 oz juice or 12 oz soda). Use glucose gel for patients with fluid restriction. See Hypoglycemia Management guideline. Each 37.5 gram tube of glucose 40 % = 15 grams of glucose. haloperidol (HALDOL) tablet 2.5 mg 2.5 mg, Oral, 2 times daily, First dose on Sat10/23/25 at 0128 Given 11/01/2025 8:16 AM EST 2.5 mg haloperidol (HALDOL) tablet 2.5 mg 2.5 mg, Oral, 2 times daily, First dose on Sat11/01/25 at 2100 Given 11/05/2025 10:08 AM EST 2.5 mg heparin (porcine) 5000 unit/mL injection 5,000 Units 5,000 Units, Subcutaneous, Every 8 hours scheduled, First dose on Sat10/23/25 at 1400, For subcutaneous use the injection sites should be rotated (usually left and right portions of the abdomen, above iliac crest)., On hold since Sat10/25/2025 at 1112 until manually unheld Given 10/25/2025 5:01 AM EST 5,000 Units Left Arm heparin (porcine) 5000 unit/mL injection 5,000 Units 5,000 Units, Subcutaneous, Once, On Sat10/25/25 at 1630, For 1 dose, For subcutaneous use the injection sites should be rotated (usually left and right portions of the abdomen, above iliac crest). Given 10/25/2025 4:10 PM EST 5,000 Units Abdominal Tissue heparin (porcine) 5000 unit/mL injection 5,000 Units 5,000 Units, Subcutaneous, Every 8 hours scheduled, First dose on Sat10/26/25 at 0600, For subcutaneous use the injection sites should be rotated (usually left and right portions of the abdomen, above iliac crest). Given 10/28/2025 3:58 AM EST 5,000 Units Left Arm HYDROmorphone (DILAUDID) injection 0.5 mg 0.5 mg, Intravenous, Every 3 hours PRN, mild pain 1-3, Starting on Sat10/26/25 at 0414, For 7 days, Patient is judged to be a standard adult Use ONLY if patient cannot tolerate PO For IV Push, administer over 2 to 3 minutes. Given 10/28/2025 4:09 PM EST 0.5 mg HYDROmorphone (DILAUDID) injection 0.8 mg 0.8 mg, Intravenous, Every 3 hours PRN, moderate to moderately severe pain 4-6, Starting on Sat10/26/25 at 0414, For 7 days, Patient is judged to be a standard adult Use ONLY if patient cannot tolerate PO For IV Push, administer over 2 to 3 minutes. Given 10/27/2025 3:51 PM EST 0.8 mg HYDROmorphone (DILAUDID) injection 1 mg 1 mg, Intravenous, Every 3 hours PRN, severe to excruciating pain 7-10, Starting on Sat10/26/25 at 0414, For 7 days, Patient is judged to be a standard adult Use ONLY if patient cannot tolerate PO For IV Push, administer over 2 to 3 minutes. Given 10/30/2025 1:47 PM EST 1 mg hydrOXYzine HCl (ATARAX) tablet 50 mg 50 mg, Oral, Every 6 hours PRN, anxiety, Starting on 10/23/25 at 0127 Given 10/31/2025 11:17 AM EST 50 mg insulin lispro (HumaLOG/ADMELOG) 100 units/mL injection 1-5 Units 1-5 Units, Subcutaneous, Every 4 hours scheduled, First dose on 10/23/25 at 0127, DO NOT HOLD IF NPO Notify provider if Blood Glucose LESS than 70 For BG 141-190 administer 1 unit For BG 191-240 administer 2 units For BG 241-290 administer 3 units For BG 291-340 administer 4 units For BG MORE than 340, administer 5 units AND notify provider Given 10/29/2025 1:19 AM EST 1 Units Left Arm insulin lispro (HumaLOG/ADMELOG) 100 units/mL injection 1-6 Units 1-6 Units, Subcutaneous, 3 times daily with meals, First dose on Sat10/29/25 at 0830, DO NOT HOLD IF NPO Notify provider if Blood Glucose LESS than 70 For BG 141-180 administer 3 unit For BG 181-220 administer 4 units For BG 221-260 administer 5 units For BG 261-300 administer 6 units For BG 301-340 administer 7 units For BG MORE than 340, administer 8 units AND notify provider Given 11/05/2025 9:28 AM EST 4 Units Left Arm iohexol (OMNIPAQUE) 350 mg/mL injection 30 mL 30 mL, Oral, Once in imaging, contrast, Starting on 10/31/25 at 1130, For 1 dose, Radiology Appointment iohexol (OMNIPAQUE) 350 mg/mL injection 80 mL 80 mL, Intravenous, Once in imaging, contrast, Starting on 10/25/25 at 1342, For 1 dose, Radiology Appointment Given 10/25/2025 1:42 PM EST 80 mL iohexol (OMNIPAQUE) 350 mg/mL injection 80 mL 80 mL, Intravenous, Once in imaging, contrast, Starting on 10/31/25 at 1457, For 1 dose, Radiology Appointment Given 10/31/2025 2:57 PM EST 80 mL levothyroxine (SYNTHROID, LEVOTHROID) tablet 200 mcg 200 mcg, Oral, Daily, First dose on Sat10/23/25 at 0600, Administer in the morning on an empty stomach, at least 30 minutes before food. Hold tube feedings 1 hour before and at least 1 hour after oral levothyroxine administration Tablets may be crushed and mixed in 5 to 10 mL of water. Given 10/28/2025 6:22 AM EST 200 mcg levothyroxine (SYNTHROID, LEVOTHROID) tablet 250 mcg 250 mcg, Oral, Daily, First dose (after last modification) on Sat10/29/25 at 0600, Administer in the morning on an empty stomach, at least 30 minutes before food. Hold tube feedings 1 hour before and at least 1 hour after oral levothyroxine administration Tablets may be crushed and mixed in 5 to 10 mL of water. Given 11/05/2025 7:10 AM EST 250 mcg loperamide (IMODIUM A-D) capsule 2 mg 2 mg, Oral, Every 6 hours PRN, diarrhea, Starting on Sat10/24/25 at 1706, Maximum 16 mg per 24 hours Given 10/24/2025 11:12 PM EST 2 mg loratadine (CLARITIN) tablet 10 mg 10 mg, Oral, Every morning, First dose on Sat10/23/25 at 0700 Given 11/05/2025 10:08 AM EST 10 mg magnesium sulfate IVPB 1 g in 100 mL D5W (premix) 1 g, Intravenous, Administer over 30 Minutes, Once, On Sat10/31/25 at 1030, For 1 dose New Bag 10/31/2025 11:17 AM EST 1 g 200 mL/hr magnesium sulfate IVPB 2 g in 50 mL SW PREMIX 2 g, Intravenous, Administer over 60 Minutes, Once, On [place] 10/28/25 at 0930, For 1 dose New Bag 10/28/2025 9:59 AM EST 2 g 50 mL/hr magnesium sulfate IVPB 2 g in 50 mL SW PREMIX 2 g, Intravenous, Administer over 60 Minutes, Once, On Sat10/29/25 at 1230, For 1 dose New Bag 10/29/2025 2:10 PM EST 2 g 50 mL/hr magnesium sulfate IVPB 2 g in 50 mL SW PREMIX 2 g, Intravenous, Administer over 60 Minutes, Once, On Sat11/01/25 at 0730, For 1 dose New Bag 11/01/2025 8:15 AM EST 2 g 50 mL/hr magnesium sulfate IVPB 2 g in 50 mL SW PREMIX 2 g, Intravenous, Administer over 60 Minutes, Once, On Sat11/04/25 at 1330, For 1 dose New 11/04/2025 1:43 PM EST 2 g 50 mL/hr melatonin tablet 3 mg 3 mg, Oral, Nightly, First dose on Sat10/28/25 at 2100 Given 11/04/2025 10:58 PM EST 3 mg metroNIDAZOLE (FLAGYL) IVPB 500 mg in 100 mL NS (premix) 500 mg, Intravenous, Administer over 60 Minutes, Every 12 hours, First dose on Sat10/26/25 at 0430, All antimicrobials used at [facility] require an indication. Please complete the following documentation. Medical Prophylaxis 10/26/2025 5:27 AM EST 500 mg 100 mL/hr metroNIDAZOLE (FLAGYL) tablet 500 mg 500 mg, Oral, Every 12 hours scheduled, First dose on Sat10/25/25 at 1000, All antimicrobials used at [facility] require an indication. Please complete the following documentation. Bacterial Infection Documented, Type of Therapy: New Therapy, Indication: Intra-abdominal abscess, On hold since Sat10/26/2025 at 0415 until manually unheld Given 10/25/2025 10:18 AM EST 500 mg montelukast (SINGULAIR) tablet 10 mg 10 mg, Oral, Nightly, First dose on [facility] 10/23/25 at 2100 Given 11/04/2025 10:58 PM EST 10 mg oxyCODONE (ROXICODONE) immediate release tablet 10 mg 10 mg, Oral, Every 3 hours PRN, severe to excruciating pain 7-10, Starting on Sat10/25/25 at 2121, For 10 days 18 hours, Use when patient is tolerating PO Given 11/03/2025 6:37 PM EST 10 mg oxyCODONE (ROXICODONE) immediate release tablet 5 mg 5 mg, Oral, Every 3 hours PRN, moderate to moderately severe pain 4-6, Starting on Sat10/25/25 at 2121, For 10 days 18 hours, Use when patient is tolerating PO Given 10/26/2025 9:47 AM EST 5 mg PANTOprazole (PROTONIX) EC tablet 40 mg 40 mg, Oral, Daily, First dose on 10/23/25 at 0900, *DO NOT CHEW OR CRUSH* Given 11/05/2025 10:10 AM EST 40 mg piperacillin-tazobacta m (ZOSYN) 4.5 g in sodium chloride-MBP (NS) 100 mL IVPB-MBP 4.5 g, Intravenous, Administer over 60 Minutes, Once, On Sat10/22/25 at 1840, For 1 dose, All antimicrobials used at [facility] require an indication. Please complete the following documentation. Bacterial Infection Suspected, Type of Therapy: New Therapy, Indication: Intra-abdominal abscess New Bag 10/22/2025 7:30 PM EST 4.5 g piperacillin-tazobacta m (ZOSYN) 4.5 g in sodium chloride-MBP (NS) 100 mL IVPB-MBP 4.5 g, Intravenous, Administer over 3 Hours, Every 12 hours, First dose on Sat10/23/25 at 1300, All antimicrobials used at [facility] require an indication. Please complete the following documentation. Bacterial Infection Suspected, Type of Therapy: Modification of Therapy, Indication: Intra-abdominal abscess New Bag 10/24/2025 1:03 PM EST 4.5 g 33.3 mL/hr piperacillin-tazobacta m (ZOSYN) 4.5 g in sodium chloride-MBP (NS) 100 mL IVPB-MBP 4.5 g, Intravenous, Administer over 3 Hours, Every 8 hours, First dose (after last modification) on Sat10/24/25 at 2100, All antimicrobials used at [facility] require an indication. Please complete the following documentation. Bacterial Infection Suspected, Type of Therapy: Modification of Therapy, Indication: Intra-abdominal abscess Restarted 10/25/2025 7:43 AM EST 33.3 mL/hr potassium chloride (KLOR-CON M20) CR tablet 20 mEq 20 mEq, Oral, Every 2 hours, First dose on Sat10/25/25 at 1000, For 3 doses, Swallow tablets whole; do not crush, chew, or suck on tablet. Take with meals and a full glass of water or other liquid to minimize the risk of GI irritation. Given 10/25/2025 2:03 PM EST 20 mEq potassium chloride (KLOR-CON M20) CR tablet 20 mEq 20 mEq, Oral, Every 2 hours, First dose on Sat10/29/25 at 1230, For 3 doses, Swallow tablets whole; do not crush, chew, or suck on tablet. Take with meals and a full glass of water or other liquid to minimize the risk of GI irritation. Given 10/29/2025 5:55 PM EST 20 mEq potassium chloride (KLOR-CON M20) CR tablet 20 mEq 20 mEq, Oral, Every 2 hours, First dose (after last reorder) on Sat10/29/25 at 2100, For 1 dose, Swallow tablets whole; do not crush, chew, or suck on tablet. Take with meals and a full glass of water or other liquid to minimize the risk of GI irritation. Given 10/29/2025 8:43 PM EST 20 mEq potassium chloride (KLOR-CON M20) CR tablet 40 mEq 40 mEq, Oral, Every 4 hours, First dose on Sat10/23/25 at 0137, For 2 doses, Swallow tablets whole; do not crush, chew, or suck on tablet. Take with meals and a full glass of water or other liquid to minimize the risk of GI irritation. Swallow tablets whole; do not crush, chew, or suck on tablet. Take with meals and a full glass of water or other liquid to minimize the risk of GI irritation. Given 10/23/2025 10:46 AM EST 40 mEq potassium chloride IVPB 10 mEq in 100 mL SW (premix) 10 mEq, Intravenous, at 100 mL/hr, Every 1 hour, First dose on [place] 10/31/25 at 1100, For 4 doses New Bag 10/31/2025 3:38 PM EST 10 mEq 100 mL/hr potassium phosphate and sodium phosphate (K PHOS NEUTRAL) tablet 500 mg 500 mg, Oral, 4 times daily with meals and nightly, First dose on Sat10/29/25 at 1230, For 4 doses, Administer with a full glass of water. Each tablet contains elemental phosphorus 250 mg (8 mmol), sodium 298 mg (13 mEq), and potassium 45 mg (1.1 mEq). Given 10/30/2025 10:31 AM EST 500 mg POTASSIUM phosphate IVPB 15 mmol in 250 mL NS (premix) 15 mmol, Intravenous, at 83.3 mL/hr, Once, On [place] 10/28/25 at 0800, For 1 dose New Bag 10/28/2025 11:47 AM EST 15 mmol 83.3 mL/hr POTASSIUM phosphate IVPB 15 mmol in 250 mL NS (premix) 15 mmol, Intravenous, at 83.3 mL/hr, Once, On 10/31/25 at 1030, For 1 dose New Bag 10/31/2025 9:43 PM EST 15 mmol 83.3 mL/hr vitamin with iron and folic acid (RIGHT STEP ) tablet 1 tablet 1 tablet, Oral, Daily, First dose on 10/23/25 at 0900 Given 10/23/2025 10:49 AM EST 1 tablet sodium chloride (NS) 0.9 % infusion - ADS Override Pull Starting on 10/25/25 at 1004, For 1 dose, Delphine Amezquita: cabinet override New 10/25/2025 10:19 AM EST 100 mL sucralfate (CARAFATE) tablet 1 g 1 g, Oral, 4 times daily, First dose on 10/23/25 at 0800, Administer with water on an empty stomach. Administer other drugs 2 hours prior to sucralfate. *Hold Gastric Delivered Enteral Nutrition at least 1 hour before and 2 hours after dose* Given 11/05/2025 10:09 AM EST 1 g vancomycin (VANCOCIN) 1,000 mg in sodium chloride (NS) 0.9 % 250 mL IVPB-WTD 1,000 mg, Intravenous, Administer over 90 Minutes, Once, On 10/23/25 at 0359, For 1 dose, All antimicrobials used at [facility] require an indication. Please complete the following documentation. Bacterial Infection Suspected, Type of Therapy: Continued from JBOSS ARCHITECT, Indication: Intra-abdominal abscess New Bag 10/23/2025 10:59 AM EST 1,000 mg 166.7 mL/hr documented in this encounter Active and Recently Administered Medications Times are shown in EST. Scheduled Medication Order 11/03/2025 11/04/2025 11/05/2025 ampicillin-sulbactam (UNASYN) 3 g in sodium chloride-MBP (NS) 100 mL IVPB-MBP 3 g, Intravenous, Administer over 60 Minutes, Every 6 hours, First dose on Sat10/26/25 at 1800, All antimicrobials used at [facility] require an indication. Please complete the following documentation. Bacterial Infection Documented, Type of Therapy: Modification of Therapy, Indication: Intra-abdominal abscess 0014 (Stopped - Provider: Amparo Lopez RN)0529 (New Bag - Provider: Amparo Lopez RN)0642 (Stopped - Provider: Amparo Lopez RN)1238 (New Bag - Provider: Odilia Kelly RN)1408 (Stopped - Provider: Odilia Kelly RN)1718 (New Bag - Provider: Odilia Kelly RN)1826 (Stopped - Provider: Odilia Kelly RN) 0114 (New Bag - Provider: Emily Maguire RN)0221 (Stopped - Provider: Emily Maguire RN)0702 (New Bag - Provider: Emily Maguire RN)0802 (Stopped - Provider: Odilia Kelly RN)1343 (New Bag - Provider: Odilia Kelly RN)1443 (Stopped - Provider: Odilia Kelly RN)2307 (New Bag - Provider: Emily Maguire RN) 0007 (Stopped - Provider: Emily Maguire RN)0710 (New Bag - Provider: Emily Maguire RN)0810 (Due: Stopped - Provider: Emily Maguire RN) ARIPiprazole (ABILIFY) tablet 20 mg 20 mg, Oral, Daily, First dose on 10/23/25 at 0900 0832 (Given - Provider: Odilia Kelly RN) 0828 (Given - Provider: Odilia Kelly RN) 1007 (Given - Provider: Tiki Monte RN) ascorbic acid (VITAMIN C) tablet 250 mg 250 mg, Oral, Daily, First dose on 10/23/25 at 0900, On hold since Sat10/26/2025 at 0415 until manually unheld 0900 (Not Given - Provider: Odilia Kelly RN - Reason: See Provider Order) 0900 (Not Given - Provider: Odilia Kelly RN - Reason: See Provider Order) 0900 (Dose Auto Held - Provider: Kelly Pérez MD)1450 (Provider Unheld - Provider: Automatic Discharge Provider) aspirin enteric coated (ECOTRIN LOW STRENGTH) tablet 81 mg 81 mg, Oral, Nightly, First dose on 10/23/25 at 2100, Do not crush, chew, or split tablet. 2204 (Given - Provider: Emily Maguire RN) 2258 (Given - Provider: Emily Maguire RN) atorvastatin (LIPITOR) tablet 40 mg 40 mg, Oral, Nightly, First dose on 10/23/25 at 2100 2204 (Given - Provider: Emily Maguire RN) 2258 (Given - Provider: Emily Maguire RN) baclofen (LIORESAL) tablet 10 mg 10 mg, Oral, 3 times daily, First dose on 10/23/25 at 0800 0832 (Given - Provider: Odilia Kelly RN)1434 (Given - Provider: Odilia Kelly RN)2204 (Given - Provider: Emily Maguire RN) 0829 (Given - Provider: Odilia Kelly RN)1318 (Given - Provider: Odilia Kelly RN)2258 (Given - Provider: Emily Maguire RN) 1008 (Given - Provider: Tiki Monte RN) buPROPion (WELLBUTRIN XL) 24 hr tablet 300 mg 300 mg, Oral, Every morning, First dose on 10/23/25 at 0700, Do not crush, chew, or split tablet. 0831 (Given - Provider: Odilia Kelly RN) 0828 (Given - Provider: Odilia Kelly RN) 1009 (Given - Provider: Tiki Monte RN) diclofenac (VOLTAREN) 1 % gel 2 g 2 g, Topical, 4 times daily, First dose on 10/23/25 at 0800, Use dosing card to measure dose. Do not apply to open wounds, eyes, or mucous membranes., Site of application: Other (please specify in comments), Other please specify: Areas of pain 1109 (Given - Provider: Odilia Kelly RN)1244 (Given - Provider: Odilia Kelly RN)1719 (Given - Provider: Odilia Kelly RN)2205 (Not Given - Provider: Emily Maguire RN - Reason: Patient/family refused) 0833 (Given - Provider: Odilia Kelly RN)1319 (Given - Provider: Odilia Kelly RN)1749 (Given - Provider: Odilia Kelly RN)2307 (Not Given - Provider: Emily Maguire RN - Reason: Patient/family refused) 1020 (Not Given - Provider: Tiki Monte RN - Reason: Patient/family refused) docusate sodium (COLACE) capsule 100 mg 100 mg, Oral, 2 times daily, First dose on 10/23/25 at 0128 0831 (Given - Provider: Odilia Kelly RN)2204 (Given - Provider: Emily Maguire RN) 0829 (Given - Provider: Odilia Kelly RN)2258 (Given - Provider: Emily Maguire RN) 1007 (Given - Provider: Tiki Monte RN) enoxaparin (LOVENOX) syringe 40 mg 40 mg, Subcutaneous, Every 24 hours scheduled, First dose on Dian 10/28/25 at 1100, Not for use in patients receiving dialysis. 0832 (Given - Provider: Odilia Kelly RN) 0830 (Given - Provider: Odilia Kelly RN) 1007 (Given - Provider: Tiki Monte RN) ferrous sulfate EC tablet 325 mg 325 mg, Oral, Daily, First dose on 10/23/25 at 0900, Administer ferrous sulfate 2 hours prior to, or 4 hours after antacids. Should be taken with water or juice on an empty stomach; may be administered with food to prevent irritation; however, not with cereals, dietary fiber, tea, coffee, eggs, or milk *DO NOT CHEW OR CRUSH* 0831 (Given - Provider: Odilia Kelly RN) 0830 (Given - Provider: Odilia Kelly RN) 1010 (Given - Provider: Tiki Monte RN) gabapentin (NEURONTIN) capsule 300 mg 300 mg, Oral, 3 times daily, First dose on 10/25/25 at 0230 0832 (Given - Provider: Odilia Kelly RN)1434 (Given - Provider: Odilia Kelly RN)2204 (Given - Provider: Emily Maguire RN) 0829 (Given - Provider: Odilia Kelly RN)1318 (Given - Provider: Odilia Kelly RN)2258 (Given - Provider: Emily Maguire RN) 1009 (Given - Provider: Tiki Monte RN) haloperidol (HALDOL) tablet 2.5 mg 2.5 mg, Oral, 2 times daily, First dose on Sat11/01/25 at 2100 0831 (Given - Provider: Odilia Kelly RN)2200 (Given - Provider: Emily Maguire RN) 0829 (Given - Provider: Odilia Kelly RN)2334 (Given - Provider: Emily Maguire RN) 1008 (Given - Provider: Tiki Monte RN) insulin lispro (HumaLOG/ADMELOG) 100 units/mL injection 1-6 Units 1-6 Units, Subcutaneous, 3 times daily with meals, First dose on Sat10/29/25 at 0830, DO NOT HOLD IF NPO Notify provider if Blood Glucose LESS than 70 For BG 141-180 administer 3 unit For BG 181-220 administer 4 units For BG 221-260 administer 5 units For BG 261-300 administer 6 units For BG 301-340 administer 7 units For BG MORE than 340, administer 8 units AND notify provider 0837 (Given - Provider: dOilia Kelly RN)1238 (Given - Provider: Odilia Kelly RN)1718 (Given - Provider: Odilia Kelly RN) 0835 (Given - Provider: Odilia Kelly RN)1246 (Not Given - Provider: Odilia Kelly RN - Reason: Dose held per order parameters)1747 (Given - Provider: Odilia Kelly RN) 0928 (Given - Provider: Tiki Monte RN)1200 (Due) levothyroxine (SYNTHROID, LEVOTHROID) tablet 250 mcg 250 mcg, Oral, Daily, First dose (after last modification) on Sat10/29/25 at 0600, Administer in the morning on an empty stomach, at least 30 minutes before food. Hold tube feedings 1 hour before and at least 1 hour after oral levothyroxine administration Tablets may be crushed and mixed in 5 to 10 mL of water. 0529 (Given - Provider: Amparo Lopez RN) 0745 (Given - Provider: Odilia Kelly RN) 0710 (Given - Provider: Emily Maguire, KRYSTYNA) lisinopril (PRINIVIL,ZeSTRIL) tablet 2.5 mg 2.5 mg, Oral, Daily, First dose on 10/23/25 at 0900, Hold for SBP less than 100 mmHg. Notify provider if a dose is held., On hold since 10/23/2025 at 0127 until manually unheld 0900 (Not Given - Provider: Odilia Kelly RN - Reason: See Provider Order) 0900 (Not Given - Provider: Odilia Kelly RN - Reason: See Provider Order) 0900 (Dose Auto Held)1450 (Provider Unheld - Provider: Automatic Discharge Provider) loratadine (CLARITIN) tablet 10 mg 10 mg, Oral, Every morning, First dose on 10/23/25 at 0700 0831 (Given - Provider: Odilia Kelly RN) 0829 (Given - Provider: Odilia Kelly RN) 1008 (Given - Provider: Tiki Monte RN) magnesium sulfate IVPB 2 g in 50 mL SW PREMIX (COMPLETED) 2 g, Intravenous, Administer over 60 Minutes, Once, On Dian 11/04/25 at 1330, For 1 dose 1343 (New Bag - Provider: Odilia Kelly RN)1443 (Stopped - Provider: Odilia Kelly RN) melatonin tablet 3 mg 3 mg, Oral, Nightly, First dose on Dian 10/28/25 at 2100 2204 (Given - Provider: Emily Maguire, KRYSTYNA) 2258 (Given - Provider: Emily Maguire, KRYSTYNA) montelukast (SINGULAIR) tablet 10 mg 10 mg, Oral, Nightly, First dose on 10/23/25 at 2100 2204 (Given - Provider: Emily Maguire, KRYSTYNA) 2258 (Given - Provider: Emily Maguire, KRYSTYNA) PANTOprazole (PROTONIX) EC tablet 40 mg 40 mg, Oral, Daily, First dose on 10/23/25 at 0900, *DO NOT CHEW OR CRUSH* 0831 (Given - Provider: Odilia Kelly RN) 0829 (Given - Provider: Odilia Kelly RN) 1010 (Given - Provider: Tiki Monte, KRYSTYNA) sucralfate (CARAFATE) tablet 1 g 1 g, Oral, 4 times daily, First dose on 10/23/25 at 0800, Administer with water on an empty stomach. Administer other drugs 2 hours prior to sucralfate. *Hold Gastric Delivered Enteral Nutrition at least 1 hour before and 2 hours after dose* 0831 (Given - Provider: Odilia Kelly RN)1239 (Given - Provider: Odilia Kelly RN)1718 (Given - Provider: Odilia Kelly RN)2204 (Given - Provider: Emily Maguire RN) 0830 (Given - Provider: Odilia Kelly RN)1318 (Given - Provider: Odilia Kelly RN)1747 (Given - Provider: Odilia Kelly RN)2303 (Given - Provider: Emily Maguire RN) 1009 (Given - Provider: Tiki Monte, KRYSTYNA)1100 (Due - Provider: Stanislav Saab RN) PRN Medication Order 11/03/2025 11/04/2025 11/05/2025 albuterol (PROVENTIL HFA; VENTOLIN HFA) inhaler 2 puff 2 puff, Inhalation, Every 4 hours PRN, wheezing, shortness of breath, Starting on 10/23/25 at 0127 clonazePAM (KlonoPIN) tablet 1 mg 1 mg, Oral, Every 12 hours PRN, anxiety, Starting on 10/23/25 at 0127, Hazardous Level Medium B Special Handling See Hazardous Medication Policy & Procedures for more information. 0243 (Given - Provider: Emily Maguire RN)2303 (Given - Provider: Emily Maguire RN) dextrose 50 % solution 12.5 g(Linked Group 1) 12.5 g, Intravenous, Every 15 min PRN, low blood sugar, between 50 and 69 mg/dL, Starting on Sat10/29/25 at 0824, For patient with IV access who is NPO or unable to swallow. See Hypoglycemia Management guideline. dextrose 50 % solution 25 g(Linked Group 1) 25 g, Intravenous, Every 15 min PRN, low blood sugar, less than 50 mg/dL, Starting on Sat10/29/25 at 0824, For patient with IV access who is NPO or unable to swallow. See Hypoglycemia Management guideline. glucagon (GLUCAGEN) injection 1 mg(Linked Group 1) 1 mg, Intramuscular, Daily PRN, low blood sugar, for Blood Glucose LESS than 70 mg/dL and NPO and no IV access, Starting on Sat10/29/25 at 0824, Glucagon may be repeated x 1 (for a total of 2 doses per hypoglycemic event) if patient remains hypoglycemic after first dose. Do not use with hepatic disease or alcohol intoxication. See Hypoglycemia Management guideline. Reconstitute vial with 1 mL sterile water for injection. glucose (GLUTOSE 15) 40 % oral gel 37.5 g(Linked Group 1) 37.5 g (1 Tube), Oral, Every 15 min PRN, low blood sugar, between 50 and 69 mg/dL, Starting on Sat10/29/25 at 0824, Juice or soda is preferred for alert patients (4 oz juice or 6 oz soda). Use glucose gel for patients with fluid restriction. See Hypoglycemia Management guideline. Each 37.5 gram tube of glucose 40 % = 15 grams of glucose. glucose (GLUTOSE 15) 40 % oral gel 75 g(Linked Group 1) 75 g (2 Tube), Oral, Every 15 min PRN, low blood sugar, less than 50 mg/dL, Starting on Sat10/29/25 at 0824, Juice or soda is preferred for alert patients (8 oz juice or 12 oz soda). Use glucose gel for patients with fluid restriction. See Hypoglycemia Management guideline. Each 37.5 gram tube of glucose 40 % = 15 grams of glucose. hydrOXYzine HCl (ATARAX) tablet 50 mg 50 mg, Oral, Every 6 hours PRN, anxiety, Starting on 10/23/25 at 0127 iohexol (OMNIPAQUE) 350 mg/mL injection 30 mL 30 mL, Oral, Once in imaging, contrast, Starting on 10/31/25 at 1130, For 1 dose, Radiology Appointment naloxone (NARCAN) 0.4 mg/mL injection 0.4 mg 0.4 mg, Intravenous, Every 5 min PRN, opioid reversal, respiratory depression, Starting on Sat10/25/25 at 2121, If respiratory rate is less than 8 breaths/minute or patient is difficult to arouse. Stop all narcotics and contact provider. ondansetron (ZOFRAN) injection 4 mg 4 mg, Intravenous, Every 6 hours PRN, nausea, vomiting, Starting on Sat10/25/25 at 2121 oxyCODONE (ROXICODONE) immediate release tablet 10 mg 10 mg, Oral, Every 3 hours PRN, severe to excruciating pain 7-10, Starting on Sat10/25/25 at 2121, For 10 days 18 hours, Use when patient is tolerating PO 1108 (Given - Provider: Odilia Kelly RN)1837 (Given - Provider: Odilia Kelly RN) oxyCODONE (ROXICODONE) immediate release tablet 5 mg 5 mg, Oral, Every 3 hours PRN, moderate to moderately severe pain 4-6, Starting on Sat10/25/25 at 2121, For 10 days 18 hours, Use when patient is tolerating PO simethicone (MYLICON) chewable tablet 80 mg 80 mg, Oral, Every 6 hours PRN, flatulence, Starting on Sat10/25/25 at 2248 Linked Groups Order Group 1: glucose (GLUTOSE 15) 40 % oral gel 37.5 gJump to med 37.5 g (1 Tube), Oral, Every 15 min PRN, low blood sugar, between 50 and 69 mg/dL, Starting on Sat10/29/25 at 0824, Juice or soda is preferred for alert patients (4 oz juice or 6 oz soda). Use glucose gel for patients with fluid restriction. See Hypoglycemia Management guideline. Each 37.5 gram tube of glucose 40 % = 15 grams of glucose. Or glucose (GLUTOSE 15) 40 % oral gel 75 gJump to med 75 g (2 Tube), Oral, Every 15 min PRN, low blood sugar, less than 50 mg/dL, Starting on Sat10/29/25 at 0824, Juice or soda is preferred for alert patients (8 oz juice or 12 oz soda). Use glucose gel for patients with fluid restriction. See Hypoglycemia Management guideline. Each 37.5 gram tube of glucose 40 % = 15 grams of glucose. Or dextrose 50 % solution 12.5 gJump to med 12.5 g, Intravenous, Every 15 min PRN, low blood sugar, between 50 and 69 mg/dL, Starting on Sat10/29/25 at 0824, For patient with IV access who is NPO or unable to swallow. See Hypoglycemia Management guideline. Or dextrose 50 % solution 25 gJump to med 25 g, Intravenous, Every 15 min PRN, low blood sugar, less than 50 mg/dL, Starting on Sat10/29/25 at 0824, For patient with IV access who is NPO or unable to swallow. See Hypoglycemia Management guideline. Or glucagon (GLUCAGEN) injection 1 mgJump to med 1 mg, Intramuscular, Daily PRN, low blood sugar, for Blood Glucose LESS than 70 mg/dL and NPO and no IV access, Starting on Sat10/29/25 at 0824, Glucagon may be repeated x 1 (for a total of 2 doses per hypoglycemic event) if patient remains hypoglycemic after first dose. Do not use with hepatic disease or alcohol intoxication. See Hypoglycemia Management guideline. Reconstitute vial with 1 mL sterile water for injection. documented in this encounter Care Teams Ice Maker Relationship Specialty Start Date End Date Linda Murphy DO [address] [place] [id number] PCP - General Internal Medicine 10/22/25 documented as of this encounter
--- OUTSIDE RECORDS SUMMARY | 2025-11-05 13:30 | XMS_ITS | Encounter Summary ---
Author Organization [facility] Address [address] [facility] [facility] [address] [place] [id number] Phone Care Team Providers Care Culture Media Laboratory Assistant Name Role Phone Linda Murphy DO Primary Care Provider [phone] Reason for Visit * Auth/Cert (Routine) Specialty Diagnoses / Procedures Referred By Contac t Referred To Contact Referral ID Status Reason Start Date Expiration Date Visits Re quested Visits Authorized [id number] 1 1 Encounter Details Date Type Department Care Team (Late st Contact Info) Description 11/05/2025 1:30 PM EST Home Care Visit [facility] [address] [place], [place] [phone] Alex Gonzalez RN [address] [place] [address] [email or web address] SN OASIS START OF CARE (SOC) Social History Tobacco Use Types Packs/Day Years Used Date Smoking Tobacco: Every Day Cigarettes Smokeless Tobacco: Never Alcohol Use Standard Drinks/Week Comments Not Currently 0 (1 standard drink = 0.6 oz pur e alcohol) Home Health Assessment: Transportation Answer Date Recorded Lack of Transportation (Medical) No 11/05/2025 Lack of Transportation (Non-Medical) No 11/05/2025 Patient Unable or Declines to Respond No 11/05/2025 Education Answer Date Recorded Are you interested [...] Sign Reading Time Taken Comments Blood Pressure 106/66 11/05/2025 3:25 PM EST Pulse 109 11/05/2025 3:25 PM EST Temperature 36.1 C (97 F) 11/05/2025 3:25 PM EST Respiratory Rate 18 11/05/2025 3:25 PM EST Oxygen Saturation 96% 11/05/2025 3:25 PM EST Inhaled Oxygen Concentration - - Weight 96.2 kg (212 lb) 11/05/2025 3:25 PM EST Height 170.2 cm (5' 7 ) 11/05/2025 3:25 PM EST Body Mass Index 33.2 11/05/2025 3:25 PM EST documented in this encounter Plan of Treatment Upcoming Encounters Date Type Department Care Team (Late st Contact Info) Description 11/11/2025 Appointment [facility] [address], [place] [phone] Fariba Mckeon RN [address] [place] [phone] 11/15/2025 4:30 AM EST Appointment [facility] [address], [place] [phone] Fariba Mckeon, RN [address] [place] [address] [email or web address] 11/18/2025 1:30 AM EST Appointment [facility] [address] [place] [phone] Fariba Mckeon, RN [address] [place] [address] [email or web address] 11/22/2025 4:00 AM EST Appointment [facility] [address] [place] [phone] Fariba Mckeon, RN [address] [place] [address] [email or web address] 11/25/2025 12:30 AM EST Appointment [facility] [address] [place] [address] Fariba Mckeon, RN [address] [place] [address] [email or web address] 11/29/2025 3:00 AM EST Appointment [facility] [address] [place] [address] Fariba Mckeon, RN [address] [place] [address] [email or web address] 12/02/2025 12:30 AM EST Appointment [facility] [address] [place] [address] Fariba Mckeon, RN [address] [place] [address] [email or web address] 12/06/2025 3:30 AM EST Appointment [facility] [address] [place] [address] Fariba Mckeon, RN [address] [place] [address] [email or web address] 12/09/2025 1:00 AM EST Appointment [facility] [address] [place] [phone] Fariba Mckeon, RN [address] [place] [address] [email or web address] 12/13/2025 2:30 AM EST Appointment [facility] [address] [place] [phone] Fariba Mckeon, RN [address] [place] [address] [email or web address] 12/16/2025 12:30 AM EST Appointment [facility] [address] [place] [phone] Fariba Mckeon, RN [address] [place] [address] [email or web address] 12/20/2025 1:00 AM EST Appointment [facility] [address] [place] [phone] Fariba Mckeon, RN [address] [place] [address] [email or web address] 12/23/2025 12:30 AM EST Appointment [facility] [address] [place] [phone] Fariba Mckeon, RN [address] [place] [address] [email or web address] 12/27/2025 1:00 AM EST Appointment [facility] [address] [place] [phone] Fariba Mckeon, RN [address] [place] [address] [email or web address] 12/30/2025 12:30 AM EST Appointment [facility] [address], [place] [phone] Fariba Mckeon, KRYSTYNA [address] [place] [phone] [email or web address] documented as of this encounter Visit Diagnoses Not on filedocumented in this encounter Home Health Visit - Care Plan Visit Details Visit Type -SN OASIS START O F CARE (SOC) Discipline -Long Term Problems Problem Description Start Date Status Goals Interve ntions HH - Infusion Therapy Disciplines: Long Term 11/05/2025 Active 1 goal linked to scheduled/documen corbin intervention 2 goal interventions scheduled/document ed in this visit HH - Cardiovascular Function - Impaired Disciplines: All Active Home Health Disciplines 11/05/2025 Active 1 goal linked to scheduled/documen corbin intervention 2 goal interventions scheduled/document ed in this visit HH - Ostomy Management Disciplines: Long Term 11/05/2025 Active 1 goal linked to scheduled/documen corbin intervention 2 goal interventions scheduled/document ed in this visit HH - Medication Management Disciplines: All Active Home Health Disciplines 11/05/2025 Active 1 goal linked to scheduled/documen corbin intervention 2 goal interventions scheduled/document ed in this visit HH - Health Maintenance Disciplines: All Active Home Health Disciplines 11/05/2025 Active 1 goal linked to scheduled/documen corbin intervention 2 goal interventions scheduled/document ed in this visit HH - Focus of Care and Teaching Disciplines: All Active Home Health Disciplines w/RD 11/05/2025 Active 1 goal linked to scheduled/documen corbin intervention 1 goal intervention scheduled/document ed in this visit HH - Emergency Planning - Knowledge of Disciplines: All Active Home Health Disciplines 11/05/2025 Active 1 goal linked to scheduled/documen crobin intervention 3 goal interventions scheduled/document ed in this visit HH - Wound Disciplines: All Active Home Health Disciplines, Long Term 11/05/2025 Active 1 goal linked to scheduled/documen corbin intervention 1 problem intervention scheduled/document ed in this visit 3 goal interventions scheduled/document ed in this visit HH - Respiratory Status - Impaired Disciplines: All Active Home Health Disciplines 11/05/2025 Active 1 goal linked to scheduled/documen corbin intervention 1 goal intervention scheduled/document ed in this visit HH - Infection - Actual or Risk of Disciplines: All Active Home Health Disciplines 11/05/2025 Active 1 goal linked to scheduled/documen corbin intervention 2 goal interventions scheduled/document ed in this visit HH - Falls - Risk of Disciplines: All Active Home Health Disciplines 11/05/2025 Active 1 goal linked to scheduled/documen corbin intervention 2 goal interventions scheduled/document ed in this visit HH - Standard of Care Disciplines: All Active Home Health Disciplines 11/05/2025 Active 1 goal linked to scheduled/documen corbin intervention 8 goal interventions scheduled/document ed in this visit HH - Pain Disciplines: All Active Home Health Disciplines 11/05/2025 Active 1 goal linked to scheduled/documen corbin intervention 2 goal interventions scheduled/document ed in this visit Goals Goal Associated Problem Outcome Goal Met? Visit Notes HH - Device will remain patent and free from infection, demonstrate/verbalize management of infusion therapy and device HH - Infusion Therapy No HH - Demonstrate/verbalize management of cardiac disease, treatments, and s/s of complications HH - Cardiovascular Function - Impaired No HH - Demonstrate/verbalize management of ostomy care and knowledge of complications HH - Ostomy Management No HH - Safe medication management, avoid unnecessary harm related to medication errors and/or interactions HH - Medication Management No HH - Patient preferences will be utilized to achieve optimal wellness and home safety. HH - Health Maintenance No HH - Communication and collaboration to achieve patient goals HH - Focus of Care and Teaching No HH - Knowledge of options for managing care in the event of an emergency related situation. HH - Emergency Planning - Knowledge of No HH - Demonstrate/verbalize wound care management, wound/lesion will be free from complications HH - Wound No HH - Demonstrate/verbalize causes, impacts, and management of respiratory condition resulting in adequate oxygenation and ventilation HH - Respiratory Status - Impaired No HH - Patient will have no new infection; any new infection that occurs will be identified and treated promptly; existing infection will resolve without complication Description: Patient and caregiver(s) will demonstrate understanding of infection prevention, monitoring, and treatment as appropriate HH - Infection - Actual or Risk of No HH - Knowledge and management of fall prevention measures. HH - Falls - Risk of No HH - Achieve care management for a safe to home/community discharge from homecare HH - Standard of Care No HH - Frequency of pain interfering with patient's activity or movement will improve with activity or movement by discharge. Description: Pain will be managed over the course of care. Patient's acceptable level of pain is 2 - less often than daily. HH - Pain No Interventions Intervention Associated Problem/Goal Status Variance Visit Notes HH - Flush device with: Description: 10 ml of NS, followed by 5 ml of 10 u/ml of heparin per medication profile using SASH with every IV med administration Problem:HH - Infusion Therapy Goal:HH - Device will remain patent and free from infection, demonstrate/verbalize management of infusion therapy and device Performed HH - Central/Midline IV management: Description: Assess site left UE Dressing change every 7 days and PRN to include site care, cap change, securement device, and extension tubing if applicable 4 fr single lumen placed in DANIELA on 11/03/25 measures 42 1/2 cm Problem:HH - Infusion Therapy Goal:HH - Device will remain patent and free from infection, demonstrate/verbalize management of infusion therapy and device Performed HH - I/E cardiovascular function Description: cardiac disease management Problem:HH - Cardiovascular Function - Impaired Goal:HH - Demonstrate/verbalize management of cardiac disease, treatments, and s/s of complications Performed HH - I/E management of fluid volume balance Problem:HH - Cardiovascular Function - Impaired Goal:HH - Demonstrate/verbalize management of cardiac disease, treatments, and s/s of complications Performed HH - Ostomy management (type & device): Description: OSTOMY TYPE: colostomy DEVICE PRODUCT NAME AND SIZE: [email or web address] body # [id number] one piece cut to fit Problem:HH - Ostomy Management Goal:HH - Demonstrate/verbalize management of ostomy care and knowledge of complications Performed HH - I/E Ostomy management: Ostomy and Stoma care, signs of complications, nutrition/hydration needs, and coping strategies Problem:HH - Ostomy Management Goal:HH - Demonstrate/verbalize management of ostomy care and knowledge of complications Performed HH - I/E medication management: administration, purpose, dosages, preparation, setup, scheduling, side effects, food/drug interactions, and potential complications as indicated Description: Update patient's copy of medication list as needed. Problem: - Medication Management Goal: - Safe medication management, avoid unnecessary harm related to medication errors and/or interactions Performed - Complete medication review every visit and medication reconciliation as indicated. Pharmacy information: Problem: - Medication Management Goal: - Safe medication management, avoid unnecessary harm related to medication errors and/or interactions Performed HH - Assess immunizations Description: UTD Problem:HH - Health Maintenance Goal:HH - Patient preferences will be utilized to achieve optimal wellness and home safety. Performed HH - I/E immunizations Problem:HH - Health Maintenance Goal:HH - Patient preferences will be utilized to achieve optimal wellness and home safety. 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 HOSPITAL COURSE: She was admitted to [facility] on 10/01 due to abd pain, AMS and increased fatigue. DX with urosepsi s with imaging noting concern for TOA. treated with IV antibiotics and a drain/ discharged from [facility] on 10/08. Went to [facility] again on 10/22 due to increasing weakness, N/V, decreased PO intake. she was stablized in [facility] due to h ypotension requiering levophed, and then transfered to [facility] due to concern for worsening tubo-ovarian abcess. 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 ulitmately a diverting loop colostomy was placed in left LQ of abd on 10/25. on hospital day 7 there was purulent drainage coming from abd incision. humza were removed and this was treated with IV antibiotics and a wet to dry dressing to be changd 1-2 x daily. client also has nephrostomy t ubes in right and left kidneys with a drain exiting each kidney and secured by stat lock and DCD. there is another drain which exits from right LQ of abd and is thought to be a surgical drain left in due to infection in abd cavity. drains are connected to j-p drain or gravity collection bag and are to be emptied and measured 2 x daily and as needed. PICC line placed on 11/03 for [facility] and she was then discharged on 11/05. [facility] note: this RN called client at 1:43pm and she was just leaving [facility]. met her at her home in [place] around 215. client is assessed. picc line in left UE- flushes easily and has a good blood return. she is recieving antibiotics every 6 hrs and schedule will be changed over the next 24 ho urs so that it will be given at 6a-12p-6p and 12a as this is more convenient for her. dressing over picc line is dry and intact. client and daughter are both taught IV administration during process today. instructions are also written out for them bell ing sure they participated in writing instructions so they made sense to them. there are also laminated instructions in [facility] folder on how to reconstitute amp as this has to be done right before it is given and how to set dial a flow to open when priming tubing and then decreasing it to 200 ml / hr so that the antibiotic will run over 30 min. daughter is able to end infusion with some cueing but did well and client believes they can do it independently this evening with the tools they have been given. they are instructed to call [facility] for assistance if needed as there will be someone available to talk them through it if needed. client has a open wound in incision line of abdomen. it is evident that humza were removed in lower end of incsion and this is to be packed with wet to dry dressings twice a day. wound is covered during visit and not due to be changed until later. client states she is independent with care of this wound. I did assess incision and it appears to be draining small t o mod amount of SS drainage. there are no S&S of infection which are reviewed with fair verbal understanding. open area appears to be approx 2-3 cm in length and 1cm in width. depth is not assessed today however wound was assessed this am in hospital p rior to discharge. drain sites are all covered with DCD/ tape dressings which were also changed this am and not due to be changed again until tomorrow. all drains are draining yellow/ stone drainage and client is aware that they have to be emptied twice a day. colostomy appliance is intact and client states this was also just changed. abd is soft and slightly tender, + BS and dark brown stool is noted in ostomy bag. client states she is also independent with ostomy. this is new and although it wasnt taught today she will most likely benefit from further teaching for both ostomy and wound care. all meds are reviewed with fair to good verbal understanding. she is aware her levothyroxine has been increased from 200mcg to 250mcg daily. client is adm itted to services and will be seen for CVP assessment, management of nephrostomy drains and surgical drain, colostomy managment, picc line management. med teaching, eval med effect and complicance. wound care, wound healing process, S&S of infection. p ain managment and safety/ fall prevention. client states she agrees with plan of care and has no further questions today. Instruction Provided to: patient Response to Instruction/Teaching: Is partially able to teach back topics as evidenced by verbal recall Plan for Next Visit Specific Focus & Education Needed: CVP assessment, management of nephrostomy drains and surgical drain, colostomy managment, picc line management. med teaching, eval med effect and complicance. wound care, wound healing proces s, S&S of infec tion. pain managment and safety/ fall prevention.. New Orders: start services Updated Discharge Plan: when independent with care HH - I/E management of care in an urgent or emergency (ER) situation: When to call your Home Care Team/911, ER plans, supplies, evacuation, when to contact local ER officials and how to stay informed Problem:HH - Emergency Planning - Knowledge of Goal:HH - Knowledge of options for managing care in the event of an emergency related situation. Performed HH - Emergency planning assessment: the emergency plan, supplies needed, emergency contact numbers and an evacuation plan were reviewed Description: Patient and Caregiver is/are knowledgeable of emergency plans. Problem:HH - Emergency Planning - Knowledge of Goal:HH - Knowledge of options for managing care in the event of an emergency related situation. Performed HH - Establish an individualized emergency plan: Description: Evacuation Plan is: evacuate Priority Medical Needs are: N/A A triage code has been assigned. A triage code and emergency plan will be reassessed for continued accuracy. Specific risks based on location: high winds, loss of utilities and severe sto gideon An emergency supply list has been provided. Problem:HH - Emergency Planning - Knowledge of Goal:HH - Knowledge of options for managing care in the event of an emergency related situation. Performed HH - Assess wounds/lesions/brown Description: LOCATION: just under umbilicus- midline to pubic area Problem: - Wound Goal:HH - Demonstrate/verbalize wound care management, wound/lesion will be free from complications Performed HH - I/E wound management Description: nutrition, nutrition to promote wound healing, s/s of complications, s/s of infection and wound dehiscence Problem: - Wound Goal:HH - Demonstrate/verbalize wound care management, wound/lesion will be free from complications Performed HH - Wound care: Description: Wound care to dehisced abd incision just below unbilicus Remove old dressing. Cleanse as follows: wash with NS Apply: wet to dry dressing and cover with DCD/ tape dressing should be changed daily and PRN for saturation/ dislodgment Problem: - Wound Goal:HH - Demonstrate/verbalize wound care management, wound/lesion will be free from complications Performed HH - I/E drain care and s/s of complication Description: assess patency and S&S of complications/ infection teach client and caregivers to empty and measure output from drains twice a day cleanse insertion site with alcohol wipe change drain dressing daily and PRN for saturation/ dislodgement- teach family dressing changes Problem:HH - Wound Performed HH - I/E respiratory disease management Description: COPD management LLL removed Problem: - Respiratory Status - Impaired Goal:HH - Demonstrate/verbalize causes, impacts, and management of respiratory condition resulting in adequate oxygenation and ventilation Performed HH - I/E infection Description: adhere to infection precautions, infection prevention measures, management of existing infection and s/s of infection Problem: - Infection - Actual or Risk of Goal:HH - Patient will have no new infection; any new infection that occurs will be identified and treated promptly; existing infection will resolve without complication Performed HH - Assess infection risk and s/s Problem: - Infection - Actual or Risk of Goal:HH - Patient will have no new infection; any new infection that occurs will be identified and treated promptly; existing infection will resolve without complication Performed - Complete fall risk assessment scale Problem: - Falls - Risk of Goal: - Knowledge and management of fall prevention measures. Performed HH - I/E fall prevention measures Description: diagnosis/age related changes/prior history of falls: symptoms and side effects of illness/injury/history of falls placing patient at increased risk for falls. may include management of dizziness/orthostasis, environmental hazards: modification of enviro nment to include clear walkways, secure animals, and move frequently used items within reach, use of equipment, impaired functional mobility: supervision for mobility/activity, appropriate footwear and as indicated safe use of assistive device(s) and flores n affecting level of function: impact of pain on an increased risk of falls Problem:HH - Falls - Risk of Goal:HH - Knowledge and management of fall prevention measures. Performed HH - Assess vital signs, pulse oximetry, pain, and as indicated, orthostatic vital signs Description: use agency-specific parameters Problem:HH - Standard of Care Goal:HH - Achieve care management for a safe to home/community discharge from homecare Performed HH - Assess skin integrity Problem: - Standard of Care Goal:HH - Achieve care management for a safe to home/community discharge from homecare Performed HH - I/E safety measures, non-fall related Description: safe ADLs/IADLs Problem: - Standard of Care Goal:HH - Achieve care management for a safe to home/community discharge from homecare Performed HH - I/E management of skin integrity and non-wound impairment Description: skin care Problem:HH - Standard of Care Goal:HH - Achieve care management for a safe to home/community discharge from homecare Performed HH - Assess safety needs of patient (other than falls) Problem: - Standard of Care Goal:HH - Achieve care management for a safe to home/community discharge from homecare Performed HH - I/E discharge plan Problem: - Standard of Care Goal:HH - Achieve care management for a safe to home/community discharge from homecare Performed HH - Complete Zafar scale at SOC and weekly Problem:HH - Standard of Care Goal:HH - Achieve care management for a safe to home/community discharge from homecare Performed HH - Assess weight Problem:HH - Standard of Care Goal:HH - Achieve care management for a safe to home/community discharge from homecare Performed HH - Assess pain Problem: - Pain Goal:HH - Frequency of pain interfering with patient's activity or movement will improve with activity or movement by discharge. Performed HH - I/E pain management Problem:HH - Pain Goal:HH - Frequency of pain interfering with patient's activity or movement will improve with activity or movement by discharge. Performed documented in this encounter Care Teams Culture Media Laboratory Assistant Relationship Specialty Start Date End Date Jurcsak, Linda, DO [address] [place] [address] PCP - General Family Medicine 07/03/24 documented as of this encounter Additional Source Comments The information contained in this document represents components of the legal health record. It is not the complete legal health record.[facility]
--- OUTSIDE RECORDS SUMMARY | 2025-11-06 10:45 | XMS_ITS | Encounter Summary ---
Author Organization [facility] Address [address] [place] [phone] Phone Care Team Providers Care Paper Carrier Name Role Phone Linda Murphy DO Primary Care Provider [phone] Reason for Visit * Auth/Cert (Routine) Specialty Diagnoses / Procedures Referred By Wallyac t Referred To Contact Referral ID Status Reason Start Date Expiration Date Visits Re quested Visits Authorized [id number] 1 1 Encounter Details Date Type Department Care Team ([facility] st Contact Info) Description 11/06/2025 10:45 AM EST Home Care Visit [facility] [address], [place] [phone] Armida Cooley LPN [address] [place] [address] [email or web address] INSTRUMENT MAKER PRN HOME VISIT Social History Tobacco Use Types Packs/Day Years [...] Sign Reading Time Taken Comments Blood Pressure 110/78 11/06/2025 1:00 PM EST Pulse 90 11/06/2025 1:00 PM EST Temperature 36.7 C (98 F) 11/06/2025 1:00 PM EST Respiratory Rate 18 11/06/2025 1:00 PM EST Oxygen Saturation 99% 11/06/2025 1:00 PM EST Inhaled Oxygen Concentration - - Weight - - Height - - Body Mass Index - - documented in this encounter Plan of Treatment Upcoming Encounters Date Type Department Care Team (Late st Contact Info) Description 11/11/2025 Appointment [facility] [address] [place] [address] Fariba Mckeon, RN [address] [place] [address] 11/15/2025 4:30 AM EST Appointment [facility] [address], [place] [phone] Fariba Mckeon, KRYSTYNA [address] [place] [address] 11/18/2025 1:30 AM EST Appointment [facility] [address] [place] [phone] Fariba Mckeon, RN [address] [place] [address] 11/22/2025 4:00 AM EST Appointment [facility] [address] [place] [phone] Fariba Mckeon, RN [address] [place] [address] 11/25/2025 12:30 AM EST Appointment [facility] [address] [place] [phone] Fariba Mckeon, RN [address] [place] [address] 11/29/2025 3:00 AM EST Appointment [facility] [address] [place] [phone] Fariba Mckeon, RN [address] [place] [address] 12/02/2025 12:30 AM EST Appointment [facility] [address] [place] [phone] Fariba Mckeon, RN [address] [place] [address] 12/06/2025 3:30 AM EST Appointment [facility] [address] [place] [phone] Fariba Mckeon, RN [address] [place] [address] 12/09/2025 1:00 AM EST Appointment [facility] [address] [place] [phone] Fariba Mckeon, RN [address] [place] [address] 12/13/2025 2:30 AM EST Appointment [facility] [address] [place] [phone] Fariba Mckeon, RN [address] [place] [address] 12/16/2025 12:30 AM EST Appointment [facility] [address] [place] [phone] Fariba Mckeon, RN [address] [place] [address] 12/20/2025 1:00 AM EST Appointment [facility] [address] [place] [phone] Fariba Mckeon, RN [address] [place] [address] 12/23/2025 12:30 AM EST Appointment [facility] [address] [place] [phone] Fariba Mckeon, RN [address] [place] [address] 12/27/2025 1:00 AM EST Appointment [facility] [address] [place] [phone] Fariba Mckeon, RN [address] [place] [address] 12/30/2025 12:30 AM EST Appointment [facility] [address] [place] [phone] Fariba Mckeon, RN [address] [place] [address] [email or web address] documented as of this encounter Visit Diagnoses Not on filedocumented in this encounter Home Health Visit - Care Plan Visit Details Visit Type -INSTRUMENT MAKER PRN HOME VIS IT Discipline -Fdc Problems Problem Description Start Date Status Goals Interve ntions HH - Medication Management Disciplines: All Active Home Health Disciplines 11/05/2025 Active 1 goal linked to scheduled/document ed intervention 2 goal interventions scheduled/document ed in this visit HH - Focus of Care and Teaching Disciplines: All Active Home Health Disciplines w/RD 11/05/2025 Active 1 goal linked to scheduled/document ed intervention 1 goal intervention scheduled/document ed in this visit HH - Emergency Planning - Knowledge of Disciplines: All Active Home Health Disciplines 11/05/2025 Active 1 goal linked to scheduled/document ed intervention 2 goal interventions scheduled/document ed in this visit HH - Wound Disciplines: All Active Home Health Disciplines, Fdc 11/05/2025 Active 1 goal linked to scheduled/document ed intervention 1 problem intervention scheduled/document ed in this visit 2 goal interventions scheduled/document ed in this visit HH - Falls - Risk of Disciplines: All Active Home Health Disciplines 11/05/2025 Active 1 goal linked to scheduled/document ed intervention HH - Standard of Care Disciplines: All Active Home Health Disciplines 11/05/2025 Active 1 goal linked to scheduled/document ed intervention 2 goal interventions scheduled/document ed in this visit Goals Goal Associated Problem Outcome Goal Met? Visit Notes HH - Safe medication management, avoid unnecessary harm related to medication errors and/or interactions HH - Medication Management No HH - Communication and collaboration to achieve patient goals HH - Focus of Care and Teaching No HH - Knowledge of options for managing care in the event of an emergency related situation. HH - Emergency Planning - Knowledge of Progressing No HH - Demonstrate/verbalize wound care management, wound/lesion will be free from complications HH - Wound No HH - Knowledge and management of fall prevention measures. HH - Falls - Risk of Progressing No HH - Achieve care management for a safe to home/community discharge from homecare HH - Standard of Care No Interventions Intervention Associated Problem/Goal Status Variance Visit Notes HH - I/E medication management: administration, purpose, dosages, preparation, setup, scheduling, side effects, food/drug interactions, and potential complications as indicated Description: Update patient's copy of medication list as needed. Problem:HH - Medication Management Goal:HH - Safe medication management, avoid unnecessary harm related to medication errors and/or interactions Performed HH - Complete medication review every visit and medication reconciliation as indicated. Pharmacy information: Problem: - Medication Management Goal:HH - Safe medication management, avoid unnecessary harm related to medication errors and/or interactions Performed HH - Focus of care, teaching completed and plan for next visit Problem:HH - Focus of Care and Teaching Goal:HH - Communication and collaboration to achieve patient goals Performed Primary Clinical Focus this Visit & Instruction Provided: Patient was seen for PRN visit for ostomy care and wound care. Patient was accompanied by her daughter during nursing visit who is helping manage patient care. Daughter is willing to learn how to perform wound care and ostomy care at each nursing visit. Wet to dry dressing was applied. Ostomy appliance was changed successfully. Daughter and patient were I/E in ostomy care and wound care technique and was advised to call the VNA w/ any questions o r concerns they may have. Instruction Provided to: patient Response to Instruction/Teachin g: Is fully able to teach back topics as evidenced by conversation. Plan for Next Visit Specific Focus & Education Needed: wound care/ostomy care New Orders: n one Updated Discharge Plan: d/c from nursing when all goals have been met. HH - I/E management of care in an urgent or emergency (ER) situation: When to call your Home Care Team/911, ER plans, supplies, evacuation, when to contact local ER officials and how to stay informed Problem: - Emergency Planning - Knowledge of Goal:HH - Knowledge of options for managing care in the event of an emergency related situation. Performed - Emergency planning assessment: the emergency plan, supplies needed, emergency contact numbers and an evacuation plan were reviewed Description: Patient and Caregiver is/are knowledgeable of emergency plans. Problem: - Emergency Planning - Knowledge of Goal:HH - Knowledge of options for managing care in the event of an emergency related situation. Performed HH - Assess wounds/lesions/brown Description: LOCATION: just under umbilicus- midline to pubic area Problem: - Wound Goal:HH - Demonstrate/verbalize wound care management, wound/lesion will be free from complications Performed - Wound care: Description: Wound care to dehisced abd incision just below unbilicus Remove old dressing. Cleanse as follows: wash with NS Apply: wet to dry dressing and cover with DCD/ tape dressing should be changed daily and PRN for saturation/ dislodgment Problem:HH - Wound Goal:HH - Demonstrate/verbalize wound care [...] changes Problem:HH - Wound Performed HH - Assess vital signs, pulse oximetry, pain, and as indicated, orthostatic vital signs Description: use agency-specific parameters Problem:HH - Standard of Care Goal:HH - Achieve care management for a safe to home/community discharge from homecare Performed HH - Assess skin integrity Problem: - Standard of Care Goal:HH - Achieve care management for a safe to home/community discharge from homecare Performed documented in this encounter Care Teams Paper Carrier Relationship Specialty Start Date End Date Linda Murphy DO [address] [place] [address] PCP - General Family Medicine 07/03/24 documented as of this encounter Additional Source Comments The information contained in this document represents components of the legal health record. It is not the complete legal health record.[facility]
--- OUTSIDE RECORDS SUMMARY | 2025-11-07 | XMS_ITS | Encounter Summary ---
Author Organization [facility] Address [address] [place] [phone] Phone Care Team Providers Care Detention Officer Name Role Phone Linda Murphy DO Primary Care Provider Reason for Visit * Auth/Cert (Routine) Specialty Diagnoses / Procedures Referred By Rolf t Referred To Contact Referral ID Status Reason Start Date Expiration Date Visits Re quested Visits Authorized [id number] 1 1 Encounter Details Date Type Department Care Team (Late st Contact Info) Description 11/07/2025 Home Care Visit [facility] [address] [place] [phone] Carmencita Arriaza RN [address] [place] [address] [email or web address] SN HOME VISIT Social History Tobacco Use Types [...] Reading Time Taken Comments Blood Pressure 100/60 11/07/2025 6:40 PM EST Pulse 86 11/07/2025 6:40 PM EST Temperature 36.4 C (97.6 F) 11/07/2025 6:40 PM EST Respiratory Rate 16 11/07/2025 6:40 PM EST Oxygen Saturation 98% 11/07/2025 6:40 PM EST Inhaled Oxygen Concentration - - Weight - - Height - - Body Mass Index - - documented in this encounter Miscellaneous Notes * Case Communication - Carmencita Arriaza RN - 11/07/2025 12:00 AM ESTPatient is running low on ostomy bags. Please bring some from office if possible. Currently has one-piece [facility] ref # [id number]. Flat wafer is working better for patient. Also, patient has punctured nephrostomy bag on R side. Advised to f/u with surgeon for guidance regarding obtaining replacement in ER. Please call prior to visit and determine if patient still requires one and if one can be obtained and brought to visit. Patient also inquired about resources for vice president of recruiting, especially for help with rides to appointments. She wouldlike POULTRY DRESSING WORKER consult if possible. She has contacted [facility] with this request as well. documented in this encounter Plan of Treatment Upcoming Encounters Date Type Department Care Team (Late st Contact Info) Description 11/11/2025 Appointment [facility] [address] [place] [phone] Fariba Mckeon, RN [address] [place] [address] 11/15/2025 4:30 AM EST Appointment [facility] [address] [place] [phone] Fariba Mckeon, RN [address] [place] [address] 11/18/2025 1:30 AM EST Appointment [facility] [address] [place] [phone] Fariba Mckeon, RN [address] [place] [address] 11/22/2025 4:00 AM EST Appointment [facility] [address] [place] [phone] Fariba Mckeon, RN [address] [place] [address] 11/25/2025 12:30 AM EST Appointment [facility] [address] [place] [address] Fariab Mckeon, RN [address] [place] [address] 11/29/2025 3:00 AM EST Appointment [facility] [address] [place] [phone] Fariba Mckeon, RN [address] [place] [address] 12/02/2025 12:30 AM EST Appointment [facility] [address] [place] [phone] Fariba Mckeon, RN [address] [place] [address] 12/06/2025 3:30 AM EST Appointment [facility] [address] [place] [phone] Fariba Mckeon, RN [address] [place] [address] 12/09/2025 1:00 AM EST Appointment [facility] [address] [place] [phone] Fariba Mckeon, KRYSTYNA [address] [place] [address] 12/13/2025 2:30 AM EST Appointment [facility] [address] [place] [phone] Fariba Mckeon, RN [address] [place] [address] 12/16/2025 12:30 AM EST Appointment [facility] [address] [place] [address] Fariba Mckeon, RN [address] [place] [address] 12/20/2025 1:00 AM EST Appointment [facility] [address] [place] [address] Fariba Mckeon, RN [address] [place] [address] 12/23/2025 12:30 AM EST Appointment [facility] [address] [place] [address] Fariba Mckeon, KRYSTYNA [address] [employer] [place] [address] [email or web address] 12/27/2025 1:00 AM EST Appointment [facility] [address] [place], [place] [phone] Fariba Mckeon, KRYSTYNA [address] [place] [address] [email or web address] 12/30/2025 12:30 AM EST Appointment [facility] [address] [place], [place] [phone] Fariba Mckeon, KRYSTYNA [address] [employer] [place] [address] [email or web address] documented as of this encounter Visit Diagnoses Not on filedocumented in this encounter Home Health Visit - Care Plan Visit Details Visit Type -SN HOME VISIT Discipline -Snf Problems Problem Description Start Date Status Goals [...] Wound Disciplines: All Active Home Health Disciplines, Snf 11/05/2025 Active 1 goal linked to scheduled/document ed intervention 1 problem intervention scheduled/document ed in this visit 1 goal intervention scheduled/document ed in this [...] complications HH - Wound No HH - Achieve care management for [...] and medication reconciliation as indicated. Pharmacy information: Problem:HH - Medication Management Goal:HH - Safe medication management, avoid unnecessary harm related to medication errors and/or interactions Performed HH - Focus of care, teaching completed and plan for next visit Problem:HH - Focus of Care and Teaching Goal:HH - Communication and collaboration to achieve patient goals Performed Primary Clinical Focus this Visit & Instruction Provided: Upon arrival to visit, patient's sister, who is a nurse, has just completed the wet-to-dry dressing to patient's abdomen. It is CDI. Patient reports she is currently using gabapentin for pain loy use she was not able to grape picker the pain medication at the pharmacy. She states abdominal pain is 8/10 but she will be able to grape picker the medication for pain tomorrow. She reports that she has been able to administer IV abx as ordered. Ostomy bag has le aked and required changing three times today. Daughter reports that patient's skin is becoming irritated. Discussed troubleshooting measures but did not take down ostomy bag as it is currently well-adhered. They have three bags remaining and will need mo re ordered. Reviewed how to empty nephrostomy bags and drains. R nephrostomy emptied of about 100 cc pink-tinged urine. Patient states that the safety pin pierced the bag and now it has a leak near the top which she has taped. Advised [facility] as this could pose an infection risk and she may need to report to ED for replacement. L nephrostomy drained of about 250 cc clear, yellow urine. Drain labeled RG emptied of about 30 cc stone/pink drainage and drain labeled RLQ has a scant amount of bloody drainage. Drainage sponge changed and tube cleansed with alcohol wipes. Patient states she will call MD and otherwise hopes to go to bed for the night. Plan for visit tomorrow. CC to RN for follow-up on supplies. Instruction Provided to: patient and caregiver Response to Instruction/Teaching: Is fully able to teach back topics as evidenced by verbalizes understanding. Plan for Next Visit Specific Focus & Education Needed: Assess ostomy and PICC management, drain/ nephrostomy functi on, supplies needed. New Orders: N/A HH - I/E management of care in [...] just under umbilicus- midline to pubic area Problem:HH - Wound Goal:HH - Demonstrate/verbaliz e wound care management, wound/lesion will be free [...] homecare Performed HH - Assess skin integrity Problem:HH - Standard of Care Goal:HH - Achieve care management for a safe to home/community discharge from homecare Performed documented in this encounter Care Teams Detention Officer Relationship Specialty Start Date End Date Linda Murphy DO [address] [place] [address] PCP - General Family Medicine 07/03/24 documented as of this encounter Additional Source Comments The information contained in this document represents components of the legal health record. It is not the complete legal health record.[facility]
--- OUTSIDE RECORDS SUMMARY | 2025-11-08 15:15 | XMS_ITS | Encounter Summary ---
Author Organization [facility] Address [address] [facility] [address] [place] [address] Phone Care Team Providers Care Grinding Machine Operator Name Role Phone Linda Murphy DO Primary Care Provider [phone] Reason for Visit * Auth/Cert (Routine) Specialty Diagnoses / Procedures Referred By Rolf t Referred To Contact Referral ID Status Reason Start Date Expiration Date Visits Re quested Visits Authorized [id number] 1 1 Encounter Details Date Type Department Care Team (Late st Contact Info) Description 11/08/2025 3:15 PM EST Home Care Visit [facility] [address] [place] [address] Serene Castle LPN [address] [place] [address] MAINTENANCE AIDE HOME VISIT Social History Tobacco Use Types [...] Sign Reading Time Taken Comments Blood Pressure 104/62 11/08/2025 3:03 PM EST Pulse 81 11/08/2025 3:03 PM EST Temperature 36.4 C (97.5 F) 11/08/2025 3:03 PM EST Respiratory Rate 18 11/08/2025 3:03 PM EST Oxygen Saturation 99% 11/08/2025 3:03 PM EST Inhaled Oxygen Concentration - - Weight - - Height - - Body Mass Index - - documented in this encounter Plan of Treatment Upcoming Encounters Date Type Department Care Team (Late st Contact Info) Description 11/11/2025 Appointment [facility] [address] [place] [address] Fariba Mckeon, RN [address] [place] [address] 11/15/2025 4:30 AM EST Appointment [facility] [address] [place] [address] Fariba Mckeon, RN [address] [place] [address] 11/18/2025 1:30 AM EST Appointment [facility] [address] [place] [phone] Fariba Mckeon, RN [address] [place] [address] 11/22/2025 4:00 AM EST Appointment [facility] [address] [place] [phone] Fariba Mckeon, RN [address] [place] [address] 11/25/2025 12:30 AM EST Appointment [facility] [address] [place] [phone] Fariba Mckeon, RN [address] [place] [address] 11/29/2025 3:00 AM EST Appointment [facility] [address] [place] [phone] Fariba Mckeon, RN [address] [place] [address] 12/02/2025 12:30 AM EST Appointment [facility] [address] [place] [address] Fariba Mckeon, RN [address] [place] [address] 12/06/2025 3:30 AM EST Appointment [facility] [address] [place] [address] Fariba Mckeon, RN [address] [place] [address] 12/09/2025 1:00 AM EST Appointment [facility] [address] [place] [address] Fariba Mckeon, RN [address] [place] [address] 12/13/2025 2:30 AM EST Appointment [facility] [address] [place] [phone] Fariba Mckeon, RN [address] [place] [address] 12/16/2025 12:30 AM EST Appointment [facility] [address] [place] [phone] Fariba Mckeon, RN [address] [place] [address] 12/20/2025 1:00 AM EST Appointment [facility] [address] [place] [phone] Fariba Mckeon, RN [address] [place] [address] 12/23/2025 12:30 AM EST Appointment [facility] [address] [place] [address] Fariba Mckeon, RN [address] [place] [address] 12/27/2025 1:00 AM EST Appointment [facility] [address] [place] [phone] Fariba Mckeon, RN [address] [place] [address] 12/30/2025 12:30 AM EST Appointment [facility] [address] [place] [phone] Fariba Mckeon, RN [address] [place] [address] [email or web address] documented as of this encounter Visit Diagnoses Not on filedocumented in this encounter Home Health Visit - Care Plan Visit Details Visit Type -MAINTENANCE AIDE HOME VISIT Discipline -Intermediate Problems Problem Description Start Date Status Goals [...] Wound Disciplines: All Active Home Health Disciplines, Intermediate 11/05/2025 Active 1 goal linked to scheduled/document [...] harm related to medication errors and/or interactions Scheduled HH - Complete medication review every visit and medication reconciliation as indicated. Pharmacy information: Problem:HH - Medication Management Goal:HH - Safe medication management, avoid unnecessary harm related to medication errors and/or interactions Scheduled HH - Focus of care, teaching completed and plan for next visit Problem: - Focus of Care and Teaching Goal: - Communication and collaboration to achieve patient goals Scheduled HH - I/E management of care in an urgent or emergency (ER) situation: When to call your Home Care Team/911, ER plans, supplies, evacuation, when to contact local ER officials and how to stay informed Problem: - Emergency Planning - Knowledge of Goal: - Knowledge of options for managing care in the event of an emergency related situation. Scheduled - Emergency planning assessment: the emergency plan, supplies needed, emergency contact numbers and an evacuation plan were reviewed Description: Patient and Caregiver is/are knowledgeable of emergency plans. Problem:HH - Emergency Planning - Knowledge of Goal:HH - Knowledge of options for managing care in the event of an emergency related situation. Scheduled HH - Assess wounds/lesions/brown Description: LOCATION: just under umbilicus- midline to pubic area Problem: - Wound Goal: - Demonstrate/verbalize wound care management, wound/lesion will be free from complications Scheduled - I/E drain care and s/s of complication Description: assess patency and S&S of complications/ infection teach client and caregivers to empty and measure output from drains twice a day cleanse insertion site with alcohol wipe change drain dressing daily and PRN for saturation/ dislodgement- teach family dressing changes Problem:HH - Wound Scheduled HH - Assess vital signs, pulse oximetry, pain, and as indicated, orthostatic vital signs Description: use agency-specific parameters Problem: - Standard of Care Goal: - Achieve care management for a safe to home/community discharge from homecare Scheduled HH - Assess skin integrity Problem: - Standard of Care Goal:HH - Achieve care management for a safe to home/community discharge from homecare Scheduled documented in this encounter Care Teams Grinding Machine Operator Relationship Specialty Start Date End Date Linda Murphy DO [address] [place] [address] PCP - General Family Medicine 07/03/24 documented as of this encounter Additional Source Comments The information contained in this document represents components of the legal health record. It is not the complete legal health record.[facility]
[2025-11-08 21:23] VITALS: BP 100/52; PULSE 94; RESP 20; TEMP 36.6; O2SAT 98; BMI 31.3
[2025-11-08 21:45] LABS: Hematocrit 29.7 % (37.0-47.0); Hemoglobin 9.7 g/dl (12.0-16.0); Imm Gran Abs Auto 0.10 X10*3/uL (0.00-0.03); Imm Gran Pct Auto 0.6 % (0.0-0.4); Lymphocytes Absolute Auto 3.1 X10*3/uL (1.2-4.9); Mean Corpuscular HGB Conc 32.7 g/dl (31.0-35.0); Mean Corpuscular Hemoglobin 26.6 pg (27.0-33.0); Mean Corpuscular Volume 81.4 fL (80.0-98.0); NRBC Abs Auto 0.000 X10*3/uL (0.0-0.012); NRBC Pct Auto 0.0 /100WBC (0.0-0.2); Platelet Count 625 X10*3/uL (160-400); Red Blood Count 3.65 X10*6/uL (4.20-5.50); SCAN SMEAR FLAG 1; White Blood Count 17.3 X10*3/uL (4.8-10.8)
[2025-11-08 21:46] LABS: MANUAL DIFF FLAG SCAN
[2025-11-08 22:04] LABS: Alanine Aminotransferase 26 U/L (0-31); Albumin Level 3.8 g/dL (3.5-5.0); Alkaline Phosphatase 129 U/L (39-117); Anion Gap 18 (12-20); Aspartate Amino Transferase 32 U/L (5-31); Blood Urea Nitrogen 10 mg/dL (9-16); Calcium 9.2 mg/dL (8.4-10.2); Carbon Dioxide 26 mmol/L (22-29); Chloride 100 mmol/L (96-108); Creatinine Clr Calc Pharmacy 66.6; Estimated Glomerular Filt Rate 50; Potassium 4.4 mmol/L (3.3-5.1); Sodium 140 mmol/L (135-145); Total Protein 8.5 g/dL (6.5-8.0)
--- OUTSIDE RECORDS SUMMARY | 2025-11-08 22:11 | XMS_ITS | Encounter Summary ---
Author Organization [employer] Address [address] [facility] 7t [place] [address] Care Team Providers Care Cement Patcher Name Role Phone Linda Murphy DO Primary Care Provider [phone] Dellogla Neri PharmD Unavailable Unavail able Antionette Murphy PharmD Unavailable Reason for Visit * Reason Comments Med Refill Encounter Details Date Type Department Care Team (Late st Contact Info) Description 04/05/2023 Refill [facility] [address] [place] [address] Linda Murphy DO 230 [place] [address] Social History Tobacco Use Types Packs/Day Years [...] Care Team (Late st Contact Info) Description 11/10/2025 2:30 PM EST Office Visit [facility] [address] [place] [address] Josseline Solis MD 230 [place] [address] documented as of this encounter Goals Goal [...] documented as of this encounter Care Teams Cement Patcher Relationship Specialty Start Date End Date Linda Murphy DO [address] [place] [address] PCP - General Family Medicine 11/24/12 Neri Yang, PharmD [address] [place] [address] Pharmacist Internal Medicine 11/23/22 10/17/23 Antionette Murphy PharmD [address] [place] [address] Pharmacist Internal Medicine 07/15/24 02/25/25 documented as of this encounter
--- OUTSIDE RECORDS SUMMARY | 2025-11-08 22:11 | XMS_ITS | Encounter Summary ---
Author Organization [employer] Address [address] [facility] [address] 7t [place] [address] Care Team Providers Care Rn Supplemental Name Role Phone Katherine Linda Primary Care Provider + [phone] Encounter Details Date Type Department Care Team (Latest Contact Info) Description 10/14/2025 Results Follow-Up [facility] [address] [place] [address] Baldo Benitez MD 230 [place] [address] CBC auto differential, Comprehensive Metabolic Panel Social [...] Description 11/10/2025 2:30 PM EST Office Visit [facility] [address] [place] [address] Josseline Solis MD 230 [place] [address] documented as of this encounter Goals Goal [...] manage their type 2 diabetes No Janette Raimres [place] Patient has chronic kidney disease Care [...] Care Plan Weekly blood pressure task No [place], [place] Weekly blood pressure task Care Plan Weekly blood pressure task [facility] [place] Patient has chronic kidney disease Care Plan Patient has chronic kidney disease No [place], [place] Patient has chronic kidney disease Care Plan Patient has chronic kidney disease No [place], [place] Weekly blood pressure task Care Plan [...] as of this encounter Care Teams Rn Supplemental Relationship Specialty Start Date End Date Linda Murphy DO [address] [place] [address] PCP - General Family Medicine 11/24/12 documented as of this encounter
--- OUTSIDE RECORDS SUMMARY | 2025-11-08 22:11 | XMS_ITS | Encounter Summary ---
Author Organization [facility] Address [address] [facility] [address] [place] [address] Phone Care Team Providers Care Appointment Scheduler Name Role Phone Linda Murphy DO Primary Care Provider Encounter Details Date Type Department Care Team (Late st Contact Info) Description 07/03/2024 Procedure Pass [facility] Scan - [address] [address] Social History Tobacco Use Types Packs/Day Years [...] 11/11/2025 Appointment [facility] [address] [place] [phone] Fariba Mckeon, KRYSTYNA [address] [place] [address] [email or web address] 11/15/2025 4:30 AM EST Appointment [facility] [address] [place] [phone] Fariba Mckeon, KRYSTYNA [address] [place] [address] [email or web address] 11/18/2025 1:30 AM EST Appointment [facility] [address] [place] [address] Fariba Mckeon, RN [address] [place] [address] [email or web address] 11/22/2025 4:00 AM EST Appointment [facility] [address] [place] [address] Fariba Mckeon, RN [address] [place] [address] [email or web address] 11/25/2025 12:30 AM EST Appointment [facility] [address] [place] [address] Fariba Mckeon, RN [address] [place] [address] [email or web address] 11/29/2025 3:00 AM EST Appointment [facility] [address] [place] [phone] Fariba Mckeon, RN [address] [place] [address] [email or web address] 12/02/2025 12:30 AM EST Appointment [facility] [address] [place] [phone] Fariba Mckeon, RN [address] [place] [address] [email or web address] 12/06/2025 3:30 AM EST Appointment [facility] [address] [place] [phone] Fariba Mckeon, RN [address] [place] [address] [email or web address] 12/09/2025 1:00 AM EST Appointment [facility] [address] [place] [phone] Fariba Mckeon, RN [address] [place] [address] [email or web address] 12/13/2025 2:30 AM EST Appointment [facility] [address] [place] [address] Fariba Mckeon, RN [address] [place] [address] [email or web address] 12/16/2025 12:30 AM EST Appointment [facility] [address] [place] [address] Fariba Mckeon, RN [address] [place] [address] [email or web address] 12/20/2025 1:00 AM EST Appointment [facility] [address] [place] [address] Fariba Mckeon, RN [address] [place] [address] [email or web address] 12/23/2025 12:30 AM EST Appointment [facility] [address] [place] [phone] Fariba Mckeon RN [address] [place] [address] [email or web address] 12/27/2025 1:00 AM EST Appointment [facility] [address] [place] [phone] Fariba Mckeon, KRYSTYNA [address] [place] [address] [email or web address] 12/30/2025 12:30 AM EST Appointment [facility] [address] [place] [phone] Fariba Mckeon RN [address] [place] [address] [email or web address] documented as of this encounter Visit Diagnoses Not on filedocumented in this encounter Care Teams Appointment Scheduler Relationship Specialty Start Date End Date Linda Murphy DO [address] [place] [address] PCP - General Family Medicine 07/03/24 documented as of this encounter Additional Source Comments The information contained in this document represents components of the legal health record. It is not the complete legal health record.[facility]
--- OUTSIDE RECORDS SUMMARY | 2025-11-08 22:11 | XMS_ITS | Encounter Summary ---
Author Organization [employer] Address [address] [facility] 7t [place] [address] Care Team Providers Care Director Airport Operations Name Role Phone Linda Murphy DO Primary Care Provider [phone] Dellogla Neri PharmD Unavailable Unavail able Antionette Murphy PharmD Unavailable Reason for Visit * Reason Comments Med Refill Encounter Details Date Type Department Care Team (Late st Contact Info) Description 04/10/2023 Refill [facility]EDS [address] [place] [address] Linda Murphy DO [address] [place] [address] Social History Tobacco Use Types Packs/Day Years [...] Department Care Team (Late Contact Info) Description 11/10/2025 2:30 PM EST Office Visit [facility] [address] [place] [address] Josseline Solis MD 230 [place] [address] documented as of this encounter Goals Goal [...] as of this encounter Care Teams Director Airport Operations Relationship Specialty Start Date End Date Linda Murphy DO [address] [place] [address] PCP - General Family Medicine 11/24/12 Neri Yang, PharmD [address] [place] [address] Pharmacist Internal Medicine 11/23/22 10/17/23 Antionette Murphy PharmD [address] [place] [address] Pharmacist Internal Medicine 07/15/24 02/25/25 documented as of this encounter
--- OUTSIDE RECORDS SUMMARY | 2025-11-08 22:11 | XMS_ITS | Encounter Summary ---
Author Organization [employer] Address [address] [facility] 7t [place] [address] Care Team Providers Care Reducer Name Role Phone Linda Mruphy DO Primary Care Provider [phone] Reason for Visit * Reason Onset Date Comments Error (VOID this visit) 11/08/2025 Encounter Details Date Type Department Care Team ([facility] st Contact Info) Description 11/08/2025 Telephone [facility] [address] [place] [address] Linda Murphy DO 230 [place] [address] Error (VOID this visit) Social History Tobacco [...] Description 11/10/2025 2:30 PM EST Office Visit [facility] [address] [place] [address] Josseline Solis MD 230 [place] [address] documented as of this encounter Goals Goal [...] Plan Weekly blood pressure task No Barlow, Lorenanastacia Weekly blood pressure task Care Plan Weekly blood pressure task No Barlow, Lorjamisonys Patient has chronic kidney disease Care Plan Patient has chronic kidney disease No Barlow Lorenys Patient has chronic kidney disease Care Plan Patient has chronic kidney disease No Barlow Lorenys Weekly blood pressure task Care Plan Weekly blood pressure task No Leeharley Wake[place], [place] Weekly blood pressure task Care Plan Weekly blood pressure task No Lee [place], [place], [place] Patient has chronic kidney disease Care Plan Patient has chronic kidney disease No Lee [place], [place], [place] Patient has chronic kidney disease Care Plan Patient has chronic kidney disease No [facility] [place] Weekly blood pressure task Care Plan [...] Weekly blood pressure task No Joselyn García, RN Weekly blood pressure task Care Plan Weekly blood pressure task No Joselyn García, RN Patient has chronic kidney disease Care [...] chronic kidney disease No Robyn Glover [place] Weekly blood pressure task Care Plan Weekly blood pressure task No Aldair Wang Weekly blood pressure task Care Plan Weekly blood pressure task No Aldair Wang Patient has chronic kidney disease Care Plan Patient has chronic kidney disease No Aldair Wang Patient has chronic kidney disease Care Plan Patient has chronic kidney disease No Aldair Wang documented as of this encounter Visit Diagnoses [...] 10/18/2025 Patient has chronic kidney disease 10/18/2025 Weekly blood pressure task 11/08/2025 Weekly blood pressure task 11/08/2025 Patient has chronic kidney disease 11/08/2025 Patient has chronic kidney disease 11/08/2025 Assessment Noted Time PHQ-9 Depression Total Score: 0 07/20/20 25 11:20 AM EDT documented as of this encounter Care Teams Reducer Relationship Specialty Start Date End Date Linda Murphy DO [address] [place] [address] PCP - General Family Medicine 11/24/12 documented as of this encounter
--- OUTSIDE RECORDS SUMMARY | 2025-11-08 22:11 | XMS_ITS | Encounter Summary ---
Author Organization [employer] Address [address] [facility] 7t [place] [address] Care Team Providers Care Gas Singer Name Role Phone Linda Murphy DO Primary Care Provider [phone] Antionette Murphy PharmD Unavailable [phone] Reason for Visit * Reason Comments Med Refill Encounter Details Date Type Department Care Team ([facility] st Contact Info) Description 07/03/2024 Refill [facility] 230 [place] [address] Linda Murphy DO 230 [place] [address] Tobacco dependence Social History Tobacco Use Types [...] Description 11/10/2025 2:30 PM EST Office Visit [facility] [address] [place] [address] Josseline Solis MD [address] [place] [address] documented as of this encounter Goals Goal [...] documented as of this encounter Care Teams Gas Singer Relationship Specialty Start Date End Date Linda Murphy DO [address] [place] [address] PCP - General Family Medicine 11/24/12 Antionette Murphy PharmD [address] [place] [address] Pharmacist Internal Medicine 07/15/24 02/25/25 documented as of this encounter
--- OUTSIDE RECORDS SUMMARY | 2025-11-08 22:11 | XMS_ITS | Encounter Summary ---
Author Organization [employer] Address [address] [place] [address] 7t [place] [address] Care Team Providers Care Laboratory Geneticist Name Role Phone Linda Murphy DO Primary Care Provider [phone] DelNeri zavala PharmD Unavailable Unavail able Antionette Murphy PharmD Unavailable [phone] Reason for Referral * Imaging (Routine) - Canceled Specialty Diagnoses / Procedures Referred By Contlauren t Referred To Contact Radiology Diagnoses Hilar mass Procedures CT Chest w/o Contrast Nora Astudillo FNP 230 [place] [address] Phone: tel: fax: [facility] [address] [place] [phone] Phone: tel: fax: Referral ID Status Reason Start Date Expiration Date V isits Requested Visits Authorized [id number] Canceled 10/11/2023 10/10/2024 1 1 Encounter Details Date Type Department Care Team (Late st Contact Info) Description 10/11/2023 Orders Only [facility] [address] [place] [address] Nora Astudillo FNP [address] [place] [address] Hilar mass (Primary Dx) Social History Tobacco [...] Description 11/10/2025 2:30 PM EST Office Visit [facility] [address] [place] [address] Josseline Solis MD 230 [place] [address] Scheduled Orders Name Type Priority Associated Diagnoses [...] documented as of this encounter Care Teams Laboratory Geneticist Relationship Specialty Start Date End Date Linda Murphy DO [address] [place] [address] PCP - General Family Medicine 11/24/12 Neri Yang, PharmD [address] [place] [address] Pharmacist Internal Medicine 11/23/22 10/17/23 Antionette Murphy, Kaiden [address] [place] [address] Pharmacist Internal Medicine 07/15/24 02/25/25 documented as of this encounter
--- OUTSIDE RECORDS SUMMARY | 2025-11-08 22:11 | XMS_ITS | Encounter Summary ---
Author Organization [employer] Address [address] [facility] [address] 7t [place] [address] Care Team Providers Care Formwork Carpenter Name Role Phone Linda Murphy DO Primary Care Provider [phone] Encounter Details Date Type Department Care Team ([facility] st Contact Info) Description 10/14/2025 Results Follow-Up [facility] [address] [place] [address] Baldo Benitez MD 230 [place] [address] US VENOUS DUPLEX LE RT Social History [...] Description 11/10/2025 2:30 PM EST Office Visit [facility] [address] [place], [place] [address] Josseline Solis MD 230 [place] [address] documented as of this encounter Goals Goal [...] Care Plan Weekly blood pressure task No [place], [place] Weekly blood pressure task Care Plan Weekly blood pressure task No [facility] [place] Patient has chronic kidney disease Care Plan Patient has chronic kidney disease No [place], [place] Patient has chronic kidney disease Care Plan Patient has chronic kidney disease No [place], [place] Weekly blood pressure task Care Plan [...] documented as of this encounter Care Teams Formwork Carpenter Relationship Specialty Start Date End Date Linda Murphy DO [address] [place] [address] PCP - General Family Medicine 11/24/12 documented as of this encounter
--- OUTSIDE RECORDS SUMMARY | 2025-11-08 22:11 | XMS_ITS | Encounter Summary ---
Author Organization [employer] Address 75 [facility] 7t [place] [address] Care Team Providers Care Camp Manager Name Role Phone Linda Murphy DO Primary Care Provider DelNeri zavala PharmD Unavailable Unavail able Antionette Murphy PharmD Unavailable [phone] Reason for Visit * Reason Onset Date Comments Letter for School/Work 03/07/2023 Encounter Details Date Type Department Care Team ([facility] st Contact Info) Description 03/07/2023 Telephone [facility] 230 [place] [address] Linda Murphy DO 230 [place] [address] Letter for School/Work Social History Tobacco Use [...] mailed due to COVID Please contact at [phone] documented in this encounter Plan of Treatment Upcoming Encounters Date Type Department Care Team (Late st Contact Info) Description 11/10/2025 2:30 PM EST Office Visit [facility] [address] [place] [address] Josseline Solis MD [address] [place] [address] documented as of this encounter Goals Goal [...] as of this encounter Care Teams Camp Manager Relationship Specialty Start Date End Date Linda Murphy DO [address] [place] [address] PCP - General Family Medicine 11/24/12 Neri Yang, PharmD [address] [place] [address] Pharmacist Internal Medicine 11/23/22 10/17/23 Antionette Murphy PharmD [address] [place] [address] Pharmacist Internal Medicine 07/15/24 02/25/25 documented as of this encounter
--- OUTSIDE RECORDS SUMMARY | 2025-11-08 22:11 | XMS_ITS | Clinical Summary ---
Author Organization [facility] Address [address] [address] Phone Care Team Providers Care Supervisor Inspection Department Name Role Phone Katherine Linda Primary Care Provider Allergies Active Allergy Reactions Criticality Noted Date Comments Oxycodone-Acetaminophen 07/03/2024 Medications aspirin 81 mg chewable tablet Take 81 mg by mouth daily. take at HS 11/05/20 25 Active atorvastatin (LIPITOR) 40 MG tablet Take 40 mg by mouth daily. 11/05/20 25 Active baclofen (LIORESAL) 10 MG tablet Take 10 mg by mouth 3 (three) times a day. 11/05/20 25 Active buPROPion (WELLBUTRIN XL) 300 MG ER 24 hr tablet Take 300 mg by mouth every morning. 11/05/20 25 Active clonazePAM (KLONOPIN) 1 MG tablet Take 1 mg by mouth 2 (two) times a day as needed for anxiety. take about 12 hours apart 11/05/20 25 Active docusate sodium (COLACE) 100 MG capsule Take 100 mg by mouth 2 (two) times a day. 11/05/20 25 Active ferrous sulfate 325 mg (65 mg [place] iron) tablet Take 325 mg by mouth daily with breakfast. 11/05/20 25 Active heparin sod,porcine/0.9 % NaCl (HEPARIN FLUSH IV) Inject 5 mL into the vein as directed. as part of sash procedure following antibiotic administration 11/05/20 25 Active sodium chloride 0.9 %, flush, (NORMAL SALINE FLUSH INJ) Inject 10 mL into the vein as directed. as part of sash procedure before and after IV antibiotic administration and PRN for sluggish line and blood draws 11/05/20 Active blood-glucose meter (FREESTYLE FREEDOM) kit Apply 1 each topically 2 (two) times a day. use to test blood sugar twice a day 11/05/20 Active acetaminophen (TYLENOL) 500 MG tablet Take 500 mg by mouth every 6 (six) hours as needed for pain (specific location in comments). 11/05/20 Active ampicillin-sulbact am (UNASYN) 3 gram injection Inject 3 g into the vein every 6 (six) hours. 11/05/20 026 Active levothyroxine (SYNTHROID, LEVOTHROID) 125 MCG tablet Take 250 mcg by mouth every morning. take two- 125 mcg tabs daily 11/05/20 Active ARIPiprazole (ABILIFY) 20 MG tablet Take 20 mg by mouth daily. 11/05/20 Active ascorbic acid, vitamin C, (VITAMIN C) 500 MG tablet Take 250 mg by mouth daily. 11/05/20 Active blood sugar diagnostic (FREESTYLE INSULINX) Strp strips 1 each by See Administration Instructions route 2 (two) times a day. use one strip to check blood sugar twice a day 11/05/20 Active diclofenac sodium 1 % Kit Apply 1 % topically as directed. follow label instructions 11/05/20 Active gabapentin (NEURONTIN) 600 MG tablet Take 600 mg by mouth 3 (three) times a day. 11/05/20 Active glipiZIDE (GLUCOTROL) 5 MG tablet Take 5 mg by mouth 2 (two) times a day before meals. 11/05/20 Active haloperidoL (HALDOL) 5 MG tablet Take 2.5 mg by mouth 2 (two) times a day. take one half tab to equal 2.5mg 11/05/20 Active hydrOXYzine (ATARAX) 50 MG tablet Take 50 mg by mouth every 8 (eight) hours as needed for anxiety. 11/05/20 Active lisinopril (PRINIVIL,ZESTRIL) 2.5 MG tablet Take 2.5 mg by mouth daily. 11/05/20 Active loratadine 10 mg Cap Take 10 mg by mouth daily. 11/05/20 Active metFORMIN (GLUCOPHAGE-XR) 500 MG 24 hr tablet Take 1,000 mg by mouth 2 (two) times a day. 11/05/20 Active montelukast (SINGULAIR) 10 mg tablet Take 10 mg by mouth nightly at bedtime. 11/05/20 Active pantoprazole sodium (PANTOPRAZOLE ORAL) Take 20 mg by mouth 2 (two) times a day. 11/05/20 Active ondansetron (ZOFRAN-ODT) 4 MG disintegrating tablet (take home) Take 4 mg by mouth as directed. take 3 x daily as needed for n/v 11/05/20 Active phenazopyridine (PYRIDIUM) 100 MG tablet Take 100 mg by mouth 3 (three) times a day as needed for pain (specific location in comments). 11/05/20 Active 75-iron [id number] 28 mg iron- 800 mcg Cmpk Take 1 tablet by mouth daily. 11/05/20 Active semaglutide (RYBELSUS) 7 mg tablet Take 7 mg by mouth daily before breakfast. 11/05/20 Active sucralfate (CARAFATE) 1 gram tablet Take 1 g by mouth 4 (four) times a day. 11/05/20 Active albuterol 90 mcg/actuation inhaler (take home) Inhale 2 puffs into the lungs every 4 (four) hours as needed for shortness of breath/dyspnea or wheezing. 11/05/20 Active lancets (TRUEPLUS LANCETS) 33 gauge Misc Inject 1 each into the skin 2 (two) times a day. 11/05/20 Active Encounters Date Type Department Care Team Description 11/08/2025 3:15 PM EST [facility] Visit [facility] [address] [place] [address] Serene Castle LPN LPN HOME VISIT 11/08/2025 Home Care Visit [facility] [address] [place] [address] Janet Jacobs, RN CASE COMMUNICATION 11/08/2025 Episode Documentation Update [facility] [address] [place] [phone] 11/08/2025 Home Care Visit [facility] [address] [place] [address] Carmencita Arriaza, RN TELEPHONE ENCOUNTER 11/07/2025 Home Care Visit [facility] [address] [place] [address] Carmencita Arriaza, KRYSTYNA SN HOME VISIT 11/06/2025 10:45 AM EST [facility] Visit [facility] [address] [place] [address] Armida Cooley LPN CHASSIS ENGINEER PRN HOME VISIT 11/06/2025 Home [facility] Visit [facility] [address] [place] [address] Carmencita Arriaza, KRYSTYNA TELEPHONE ENCOUNTER 11/06/2025 Plan of Care Documentation [facility] [address] [place] [address] 11/05/2025 1:30 PM EST Home Care Visit [facility] [address] [place] [address] Lisa, Alex Berry, KRYSTYNA SN OASIS START OF CARE (SOC) 11/02/2025 Orders Only [facility] [address] [place] [address] Homehealth, Interface ProviderMD from Last 3 Months Social History Tobacco [...] Mass Index 33.2 11/05/2025 3:25 PM EST Plan of Treatment Upcoming Encounters Date Type Department Care Team (Late st Contact Info) Description 11/11/2025 Appointment [facility] [address] [place] [phone] Fariba Mckeon, KRYSTYNA [facility]ly [facility] [place] [address] 11/15/2025 4:30 AM EST Appointment [facility] [address] [place] [phone] Fariba Mckeon, RN [address] [place] [address] [email or web address] 11/18/2025 1:30 AM EST Appointment [facility] [address] [place] [phone] Fariba Mckeon, RN [address] [place] [address] [email or web address] 11/22/2025 4:00 AM EST Appointment [facility] [address] [place] [phone] Fariba Mckeon, RN [address] [place] [address] [email or web address] 11/25/2025 12:30 AM EST Appointment [facility] [address] [place] [phone] Fariba Mckeon, RN [address] [place] [address] [email or web address] 11/29/2025 3:00 AM EST Appointment [facility] [address] [place] [address] Fariba Mckeon, RN [address] [place] [address] [email or web address] 12/02/2025 12:30 AM EST Appointment [facility] [address] [place] [address] Fariba Mckeon, RN [address] [place] [address] [email or web address] 12/06/2025 3:30 AM EST Appointment [facility] [address] [place] [address] Fariba Mckeon, RN [address] [place] [address] [email or web address] 12/09/2025 1:00 AM EST Appointment [facility] [address] [place] [phone] Fariba Mckeon, RN [address] [place] [address] [email or web address] 12/13/2025 2:30 AM EST Appointment [facility] [address] [place] [phone] Fariba Mckeon, RN [address] [place] [address] [email or web address] 12/16/2025 12:30 AM EST Appointment [facility] [address] [place] [phone] Fariba Mckeon, RN [address] [place] [address] [email or web address] 12/20/2025 1:00 AM EST Appointment [facility] [address] [place] [phone] Fariba Mckeon, RN [address] [place] [address] [email or web address] 12/23/2025 12:30 AM EST Appointment [facility] [address] [place] [phone] Fariba Mckeon, RN [address] [place] [address] [email or web address] 12/27/2025 1:00 AM EST Appointment [facility] [address] [place] [phone] Fariba Mckeon, RN [address] [place] [address] [email or web address] 12/30/2025 12:30 AM EST Appointment [facility] [address] [place], [place] [phone] Fariba Mckeon, KRYSTYNA [address] [place] [address] [email or web address] Health Maintenance Due Date Last Done Comments CREATININE LEVEL 1972 POTASSIUM LEVEL 1972 DEPRESSION SCREENING 1984 SMOKING Hx and SMOKELESS TOBACCO SCREENING 1985 HEPATITIS C SCREENING 1990 HIV ONE-TIME SCREENING (18-65 YEARS) 1990 PNEUMOCOCCAL VACCINES (50+ years) (2 of 2 - PCV) 10/27/2013 10/27/2012, 04/23/2012 COLOGUARD 2017 COLONOSCOPY 2017 COLORECTAL CANCER SCREENING 2017 FIT TEST 2017 FOBT 2017 SIGMOIDOSCOPY 2017 VIRTUAL COLONOSCOPY 2017 MAMMOGRAM 04/01/2021 04/01/2019, 04/01/2019 Adult Td,Tdap Booster 04/23/2022 04/23/2012 ZOSTER VACCINES (1 of 2) 2022 PAP SMEAR 02/15/2025 02/15/2022 INFLUENZA VACCINE (#1) 2025 COVID-19 VACCINE ( - 2024- season) 2025 TSH LEVEL 10/28/2026 10/28/2025, 10/11, 10/23/2025 SCREENING FOR DIABETES 11/05/2028 , 11/04/2025, 11/03/2025, Additional history exists LIPID PANEL 04/26/2030 04/26/2025, 08/26/2023 RSV VACCINE (1 - 1-dose 75+ [...] topic Medical Devices Not on file Insurance [place] A & B [facility] ONE CARE MEDICARE REPLACEMENT [place] B [facility] ONE [facility] MEDICARE REPLACEMENT [facility] MEDICARE PART A & B [facility] ONE CARE MEDICARE REPLACEMENT [facility] MEDICARE PART A & [facility] ONE CARE MEDICARE [facility]PLACEMENT [place] & B [facility] MEDICARE REPLACEMENT [place] A & B [facility] ONE CARE MEDICARE REPLACEMENT Care Teams Supervisor Inspection Department Relationship Specialty Start Date End Date Linda Murphy DO [address] [place] [phone] PCP - General Family Medicine 07/03/24 Additional Source Comments The information contained in this document represents components of the legal health record. It is not the complete legal health record.[facility]
--- OUTSIDE RECORDS SUMMARY | 2025-11-08 22:11 | XMS_ITS | Encounter Summary ---
Author Organization [employer] Address [address] [place] [address] Care Team Providers Care Residence Hall Director Name Role Phone Linda Murphy DO Primary Care Provider [phone] Antionette Murphy PharmD Unavailable [phone] Reason for Visit * Reason Onset Date Comments Medication Question 11/13/2023 Encounter Details Date Type Department Care Team ([facility] st Contact Info) Description 11/13/2023 Telephone [facility] [address] [place] [address] Linda Murphy DO [address] [place] [address] Medication Question Social History Tobacco Use Types [...] 11/08 Physical appointment. Please contact pt at [phone] documented in this encounter Plan of Treatment Upcoming Encounters Date Type Department Care Team (Late st Contact Info) Description 11/10/2025 2:30 PM EST Office Visit [facility] [address] [place] [phone] Josseline Solis MD [address] [place] [phone] documented as of this encounter Goals Goal [...] documented as of this encounter Care Teams Residence Hall Director Relationship Specialty Start Date End Date Linda Murphy DO [address] [place] [phone] PCP - General Family Medicine 11/24/12 Antionette Murphy, Kaiden [address] [place] [address] Pharmacist Internal Medicine 07/15/24 02/25/25 documented as of this encounter
--- OUTSIDE RECORDS SUMMARY | 2025-11-08 22:11 | XMS_ITS | Encounter Summary ---
Author Organization [employer] Address [address] [place] [address] Care Team Providers Care Elementary Esl Teacher Name Role Phone Linda Murphy DO Primary Care Provider [phone] Encounter Details Date Type Department Care Team ([facility] Contact Info) Description 08/11/2025 Orders Only [facility] [address] [place] [address] Linda Murphy DO [address] [place] [address] Social History Tobacco Use Types Packs/Day Years [...] Description 11/10/2025 2:30 PM EST Office Visit [facility] [address] [place], [place] [phone] Josseline Solis MD [address] [place] [address] documented as of this encounter Goals Goal Patient Goal Type Associated Problems Recent Progress Patient-Stated? Author Hemoglobin A1c < 7 Result Component 8.7(10/01/2025 9:13 AM EST) No Dellogono, Neri, PharmD documented as of this encounter Visit Diagnoses Not on filedocumented in this encounter Additional Health Concerns Assessment Noted Time PHQ-9 Depression Total Score: 0 07/20/20 25 11:20 AM EDT documented as of this encounter Care Teams Elementary Esl Teacher Relationship Specialty Start Date End Date Linda Murphy DO [address] [place], [place] [phone] PCP - General Family Medicine 11/24/12 documented as of this encounter
--- OUTSIDE RECORDS SUMMARY | 2025-11-08 22:11 | XMS_ITS | Encounter Summary ---
Author Organization [employer] Address [address] [facility] [address] [place] [address] Care Team Providers Care Cardiac Rn Name Role Phone Linda Murphy DO Primary Care Provider [phone] Neri Yang PharmD Unavailable Unavail able Antionette Murphy PharmD Unavailable [phone] Reason for Visit * Reason Onset Date Comments Results 10/08/2023 Encounter Details Date Type Department Care Team ([facility] st Contact Info) Description 10/08/2023 Telephone [facility] [address] [place] [address] Linda Murphy DO [address] [place], [place] [phone] Results Social History Tobacco Use Types Packs/Day [...] Description 11/10/2025 2:30 PM EST Office Visit [facility] [address] [place] [phone] Josseline Solis MD [address] [place] [address] documented as of this encounter Goals Goal [...] documented as of this encounter Care Teams Cardiac Rn Relationship Specialty Start Date End Date Linda Murphy DO [address] [place] [phone] PCP - General Family Medicine 11/24/12 Neri Yang, PharmD [address] [place] [address] Pharmacist Internal Medicine 11/23/22 10/17/23 Antionette Murphy, EricD [address] [place] [address] Pharmacist Internal Medicine 07/15/24 02/25/25 documented as of this encounter
--- OUTSIDE RECORDS SUMMARY | 2025-11-08 22:12 | XMS_ITS ---
Author Name [facility] Organization Unknown Results Test Name/Text Value Interpretation Date Range Source POC Glucose 183.0 mg/dL Above high normal 11/05/2025 65 - 99 HHCCT POC Glucose 185.0 mg/dL Above high normal 11/05/2025 65 - 99 HHCCT POC Glucose 187.0 mg/dL Above high normal 11/05/2025 65 - 99 HHCCT POC Glucose 275.0 mg/dL Above high normal 11/05/2025 65 - 99 HHCCT POC Glucose 196.0 mg/dL Above high normal 11/04/2025 65 - 99 HHCCT POC Glucose 137.0 mg/dL Above high normal 11/04/2025 65 - 99 HHCCT POC Glucose 158.0 mg/dL Above high normal 11/04/2025 65 - 99 HHCCT Magnesium SerPl-mCnc 1.5 mg/dL Below low normal 11/04/2025 1 .6 - 2.7 HHCCT Phosphate SerPl-mCnc 4.1 mg/dL 11/04/2025 2.7 - 4. 5 HHCCT BUN/Creat SerPl 9.0 Ratio Below low normal 11/04/2025 10 - 2 5 HHCCT Potassium SerPl-sCnc 3.9 mmol/L 11/04/2025 3.4 - 5 .3 HHCCT Sodium SerPl-sCnc 137.0 mmol/L 11/04/2025 136 - 14 5 HHCCT BUN SerPl-mCnc 10.0 mg/dL 11/04/2025 8 - [address] GFR/BSA.pred SerPlBld [id number]-SgQGog 58.0 Below low normal 11/04/2025 59 - HHCCT Calcium SerPl-mCnc 8.9 mg/dL 11/04/2025 8.7 - 10.5 HHCCT Chloride SerPl-sCnc 100.0 mmol/L 11/04/2025 98 - 1 07 HHCCT CO2 SerPl-sCnc 26.0 mmol/L 11/04/2025 22 - 33 HH CCT Glucose SerPl-mCnc 137.0 mg/dL Above high normal 11/04/2025 65 - 99 HHCCT Anion Gap Bld-sCnc 11.0 11/04/2025 7 - 17 HHCCT Creat SerPl-mCnc 1.14 mg/dL Above high normal 11/04/2025 0.4 - 1.1 HHCCT Lymphocytes num Bld Auto 2.62 Thou/uL 11/04/2025 1.5 - 4.5 HHCCT Lymphocytes/leuk NFr Bld Auto 16.1 % 11/04/2025 HHCCT Platelet num Bld Auto 677.0 Thou/uL Above high normal 11/04/2025 150 - 450 HHCCT MCH RBC Qn Auto 26.4 pg Below low normal 11/04/2025 27 - 3 1 HHCCT Neutrophils/leuk NFr Bld Auto 68.1 % 11/04/2025 HHCCT Monocytes/leuk NFr Bld Auto 8.6 % 11/04/2025 HHCCT MCHC RBC Auto-mCnc 31.3 g/dL 11/04/2025 30 - 36 HHCCT PMV Bld Auto 9.5 fL 11/04/2025 7.5 - 12.5 HHCCT WBC num Bld Auto 16.2 Thou/uL Above high normal 11/04/2025 4 - 11 HHCCT Monocytes num Bld Auto 1.4 Thou/uL 11/04/2025 0.2 - 1.5 HHCCT Imm Granulocytes num Bld Auto 0.35 Thou/uL Above high normal 11/04/2025 0 - 0.1 HHCCT Basophils/leuk NFr Bld Auto 0.7 % 11/04/2025 HHCCT Neutrophils num Bld Auto 11.06 Thou/uL Above high normal 11/04/2025 2 - 7.5 HHCCT Eosinophil num Bld Auto 0.7 Thou/uL 11/04/2025 0 - 0.7 HHCCT Imm Granulocytes/leuk NFr Bld Auto 2.2 % 11/04/2025 HHCCT Hct VFr Bld Auto 27.8 % Below low normal 11/04/2025 35 - 47 HHCCT RDW RBC Auto-Rto 17.7 % Above high normal 11/04/2025 11.5 - 14.5 HHCCT Eosinophil/leuk NFr Bld Auto 4.3 % 11/04/2025 HHCCT Hgb Bld-mCnc 8.7 g/dL Below low normal 11/04/2025 11.7 - 15 .7 HHCCT MCV RBC Auto 84.0 fL 11/04/2025 80 - 100 HHCCT RBC num Bld Auto 3.3 Mil/uL Below low normal 11/04/2025 4 - 5.4 HHCCT Basophils num Bld Auto 0.11 Thou/uL 11/04/2025 0 - 0.2 HHCCT POC Glucose 160.0 mg/dL Above high normal 11/04/2025 65 - 99 HHCCT POC Glucose 168.0 mg/dL Above high normal 11/04/2025 65 - 99 HHCCT POC Glucose 187.0 mg/dL Above high normal 11/04/2025 65 - 99 HHCCT POC Glucose 176.0 mg/dL Above high normal 11/03/2025 65 - 99 HHCCT POC Glucose 167.0 mg/dL Above high normal 11/03/2025 65 - 99 HHCCT POC Glucose 154.0 mg/dL Above high normal 11/03/2025 65 - 99 HHCCT Magnesium SerPl-mCnc 1.5 mg/dL Below low normal 11/03/2025 1 .6 - 2.7 HHCCT Phosphate SerPl-mCnc 3.4 mg/dL 11/03/2025 2.7 - 4. 5 HHCCT Chloride SerPl-sCnc 102.0 mmol/L 11/03/2025 98 - 1 07 HHCCT GFR/BSA.pred SerPlBld ZRQ-CDF-QcVSle 64.0 11/03/2025 59 - HHCCT Potassium SerPl-sCnc 4.0 mmol/L 11/03/2025 3.4 - 5 .3 HHCCT Creat SerPl-mCnc 1.05 mg/dL 11/03/2025 0.4 - 1.1 H HCCT Glucose SerPl-mCnc 146.0 mg/dL Above high normal 11/03/2025 65 - 99 HHCCT Anion Gap Bld-sCnc 9.0 11/03/2025 7 - 17 HHCCT CO2 SerPl-sCnc 28.0 mmol/L 11/03/2025 22 - 33 HH CCT Sodium SerPl-sCnc 139.0 mmol/L 11/03/2025 136 - 14 5 HHCCT Calcium SerPl-mCnc 8.5 mg/dL Below low normal 11/03/2025 8.7 - 10.5 HHCCT BUN/Creat SerPl 6.0 Ratio Below low normal 11/03/2025 10 - 2 5 HHCCT BUN SerPl-mCnc 6.0 mg/dL Below low normal 11/03/2025 8 - 21 HHCCT MCH RBC Qn Auto 26.5 pg Below low normal 11/03/2025 27 - 3 1 HHCCT MCV RBC Auto 85.0 fL 11/03/2025 80 - 100 HHCCT PMV Bld Auto 9.5 fL 11/03/2025 7.5 - 12.5 HHCCT Hgb Bld-mCnc 8.6 g/dL Below low normal 11/03/2025 11.7 - 15 .7 HHCCT Hct VFr Bld Auto 27.5 % Below low normal 11/03/2025 35 - 47 HHCCT RBC num Bld Auto 3.25 Mil/uL Below low normal 11/03/2025 4 - 5.4 HHCCT WBC num Bld Auto 21.5 Thou/uL Above high normal 11/03/2025 4 - 11 HHCCT RDW RBC Auto-Rto 18.0 % Above high normal 11/03/2025 11.5 - 14.5 HHCCT MCHC RBC Auto-mCnc 31.3 g/dL 11/03/2025 30 - 36 HHCCT Platelet num Bld Auto 636.0 Thou/uL Above high normal 11/03/2025 150 - 450 HHCCT POC Glucose 159.0 mg/dL Above high normal 11/03/2025 65 - 99 HHCCT POC Glucose 170.0 mg/dL Above high normal 11/03/2025 65 - 99 HHCCT POC Glucose 255.0 mg/dL Above high normal 11/03/2025 65 - 99 HHCCT POC Glucose 186.0 mg/dL Above high normal 11/02/2025 65 - 99 HHCCT POC Glucose 240.0 mg/dL Above high normal 11/02/2025 65 - 99 HHCCT POC Glucose 146.0 mg/dL Above high normal 11/02/2025 65 - 99 HHCCT Sodium SerPl-sCnc 142.0 mmol/L 11/02/2025 136 - 14 5 HHCCT BUN SerPl-mCnc 5.0 mg/dL Below low normal 11/02/2025 8 - 21 HHCCT Glucose SerPl-mCnc 140.0 mg/dL Above high normal 11/02/2025 65 - 99 HHCCT CO2 SerPl-sCnc 25.0 mmol/L 11/02/2025 22 - 33 HH CCT GFR/BSA.pred SerPlBld FIS-KSC-WoPScx 66.0 11/02/2025 59 - HHCCT Chloride SerPl-sCnc 105.0 mmol/L 11/02/2025 98 - 1 07 HHCCT Calcium SerPl-mCnc 8.3 mg/dL Below low normal 11/02/2025 8.7 - 10.5 HHCCT Potassium SerPl-sCnc 4.0 mmol/L 11/02/2025 3.4 - 5 .3 HHCCT Anion Gap Bld-sCnc 12.0 11/02/2025 7 - 17 HHCCT BUN/Creat SerPl 5.0 Ratio Below low normal 11/02/2025 10 - 2 5 HHCCT Creat SerPl-mCnc 1.02 mg/dL 11/02/2025 0.4 - 1.1 H HCCT Magnesium SerPl-mCnc 1.6 mg/dL 11/02/2025 1.6 - 2. 7 HHCCT Phosphate SerPl-mCnc 2.8 mg/dL 11/02/2025 2.7 - 4. 5 HHCCT Platelet num Bld Auto 637.0 Thou/uL Above high normal 11/02/2025 150 - 450 HHCCT Hgb Bld-mCnc 8.2 g/dL Below low normal 11/02/2025 11.7 - 15 .7 HHCCT RDW RBC Auto-Rto 18.1 % Above high normal 11/02/2025 11.5 - 14.5 HHCCT RBC num Bld Auto 3.21 Mil/uL Below low normal 11/02/2025 4 - 5.4 HHCCT PMV Bld Auto 10.2 fL 11/02/2025 7.5 - 12.5 HHCCT WBC num Bld Auto 23.1 Thou/uL Above high normal 11/02/2025 4 - 11 HHCCT Hct VFr Bld Auto 27.2 % Below low normal 11/02/2025 35 - 47 HHCCT MCH RBC Qn Auto 25.5 pg Below low normal 11/02/2025 27 - 3 1 HHCCT MCV RBC Auto 85.0 fL 11/02/2025 80 - 100 HHCCT MCHC RBC Auto-mCnc 30.1 g/dL 11/02/2025 30 - 36 HHCCT POC Glucose 211.0 mg/dL Above high normal 11/02/2025 65 - 99 HHCCT POC Glucose 176.0 mg/dL Above high normal 11/01/2025 65 - 99 HHCCT POC Glucose 186.0 mg/dL Above high normal 11/01/2025 65 - 99 HHCCT POC Glucose 120.0 mg/dL Above high normal 11/01/2025 65 - 99 HHCCT POC Glucose 144.0 mg/dL Above high normal 11/01/2025 65 - 99 HHCCT Magnesium SerPl-mCnc 1.5 mg/dL Below low normal 11/01/2025 1 .6 - 2.7 HHCCT BUN SerPl-mCnc 6.0 mg/dL Below low normal 11/01/2025 8 - 21 HHCCT Anion Gap Bld-sCnc 10.0 11/01/2025 7 - 17 HHCCT GFR/BSA.pred SerPlBld GLL-GPU-CrZDdd 65.0 11/01/2025 59 - HHCCT CO2 SerPl-sCnc 24.0 mmol/L 11/01/2025 22 - 33 HH CCT Chloride SerPl-sCnc 108.0 mmol/L Above high normal 98 - 107 HHCCT Creat SerPl-mCnc 1.03 mg/dL 11/01/2025 0.4 - 1.1 H HCCT Potassium SerPl-sCnc 4.1 mmol/L 11/01/2025 3.4 - 5 .3 HHCCT Glucose SerPl-mCnc 134.0 mg/dL Above high normal 11/01/2025 65 - 99 HHCCT Sodium SerPl-sCnc 142.0 mmol/L 11/01/2025 136 - 14 5 HHCCT Calcium SerPl-mCnc 7.9 mg/dL Below low normal 11/01/2025 8.7 - 10.5 HHCCT BUN/Creat SerPl 6.0 Ratio Below low normal 11/01/2025 10 - 2 5 HHCCT Phosphate SerPl-mCnc 3.2 mg/dL 11/01/2025 2.7 - 4. 5 HHCCT MCHC RBC Auto-mCnc 30.7 g/dL 11/01/2025 30 - 36 HHCCT RBC num Bld Auto 3.47 Mil/uL Below low normal 11/01/2025 4 - 5.4 HHCCT MCV RBC Auto 84.0 fL 11/01/2025 80 - 100 HHCCT Hgb Bld-mCnc 9.0 g/dL Below low normal 11/01/2025 11.7 - 15 .7 HHCCT RDW RBC Auto-Rto 18.5 % Above high normal 11/01/2025 11.5 - 14.5 HHCCT Hct VFr Bld Auto 29.3 % Below low normal 11/01/2025 35 - 47 HHCCT Platelet num Bld Auto 551.0 Thou/uL Above high normal 11/01/2025 150 - 450 HHCCT PMV Bld Auto 9.7 fL 11/01/2025 7.5 - 12.5 HHCCT MCH RBC Qn Auto 25.9 pg Below low normal 11/01/2025 27 - 3 1 HHCCT WBC num Bld Auto 25.7 Thou/uL Above high normal 11/01/2025 4 - 11 HHCCT POC Glucose 117.0 mg/dL Above high normal 11/01/2025 65 - 99 HHCCT POC Glucose 250.0 mg/dL Above high normal 11/01/2025 65 - 99 HHCCT POC Glucose 140.0 mg/dL Above high normal 10/31/2025 65 - 99 HHCCT POC Glucose 222.0 mg/dL Above high normal 10/31/2025 65 - 99 HHCCT POC Glucose 131.0 mg/dL Above high normal 10/31/2025 65 - 99 HHCCT Phosphate SerPl-mCnc 2.7 mg/dL 10/31/2025 2.7 - 4. 5 HHCCT Magnesium SerPl-mCnc 1.6 mg/dL 10/31/2025 1.6 - 2. 7 HHCCT Anion Gap Bld-sCnc 12.0 10/31/2025 7 - 17 HHCCT BUN SerPl-mCnc 4.0 mg/dL Below low normal 10/31/2025 8 - 21 HHCCT Sodium SerPl-sCnc 142.0 mmol/L 10/31/2025 136 - 14 5 HHCCT Calcium SerPl-mCnc 8.0 mg/dL Below low normal 10/31/2025 8.7 - 10.5 HHCCT BUN/Creat SerPl 4.0 Ratio Below low normal 10/31/2025 10 - 2 5 HHCCT GFR/BSA.pred SerPlBld GIZ-VVN-NnBOkn 69.0 10/31/2025 59 - HHCCT Potassium SerPl-sCnc 3.5 mmol/L 10/31/2025 3.4 - 5 .3 HHCCT Glucose SerPl-mCnc 126.0 mg/dL Above high normal 10/31/2025 65 - 99 HHCCT Chloride SerPl-sCnc 106.0 mmol/L 10/31/2025 98 - 1 07 HHCCT CO2 SerPl-sCnc 24.0 mmol/L 10/31/2025 22 - 33 HH CCT Creat SerPl-mCnc 0.98 mg/dL 10/31/2025 0.4 - 1.1 H HCCT Platelet num Bld Auto 504.0 Thou/uL Above high normal 10/31/2025 150 - 450 HHCCT MCH RBC Qn Auto 26.6 pg Below low normal 10/31/2025 27 - 3 1 HHCCT MCHC RBC Auto-mCnc 32.0 g/dL 10/31/2025 30 - 36 HHCCT Hgb Bld-mCnc 9.1 g/dL Below low normal 10/31/2025 11.7 - 15 .7 HHCCT nRBC/100 WBC Bld Auto-Rto 0.1 /100 WBC 10/31/2025 0 - 0.1 HHCCT PMV Bld Auto 9.6 fL 10/31/2025 7.5 - 12.5 HHCCT Hct VFr Bld Auto 28.4 % Below low normal 10/31/2025 35 - 47 HHCCT MCV RBC Auto 83.0 fL 10/31/2025 80 - 100 HHCCT nRBC num Bld Auto 0.02 Thou/uL 10/31/2025 0 - 0.02 HHCCT RBC num Bld Auto 3.42 Mil/uL Below low normal 10/31/2025 4 - 5.4 HHCCT RDW RBC Auto-Rto 18.0 % Above high normal 10/31/2025 11.5 - 14.5 HHCCT WBC num Bld Auto 27.0 Thou/uL Above high normal 10/31/2025 4 - 11 HHCCT POC Glucose 266.0 mg/dL Above high normal 10/31/2025 65 - 99 HHCCT POC Glucose 123.0 mg/dL Above high normal 10/30/2025 65 - 99 HHCCT POC Glucose 301.0 mg/dL Above high normal 10/30/2025 65 - 99 HHCCT POC Glucose 330.0 mg/dL Above high normal 10/30/2025 65 - 99 HHCCT POC Glucose 127.0 mg/dL Above high normal 10/30/2025 65 - 99 HHCCT MCHC RBC Auto-mCnc 32.6 g/dL 10/30/2025 30 - 36 HHCCT Hgb Bld-mCnc 9.2 g/dL Below low normal 10/30/2025 11.7 - 15 .7 HHCCT PMV Bld Auto 9.3 fL 10/30/2025 7.5 - 12.5 HHCCT RBC num Bld Auto 3.45 Mil/uL Below low normal 10/30/2025 4 - 5.4 HHCCT nRBC num Bld Auto 0.02 Thou/uL 10/30/2025 0 - 0.02 HHCCT MCV RBC Auto 82.0 fL 10/30/2025 80 - 100 HHCCT Hct VFr Bld Auto 28.2 % Below low normal 10/30/2025 35 - 47 HHCCT WBC num Bld Auto 35.4 Thou/uL Critically high 10/30/2025 4 - 11 HHCCT MCH RBC Qn Auto 26.7 pg Below low normal 10/30/2025 27 - 3 1 HHCCT nRBC/100 WBC Bld Auto-Rto 0.1 /100 WBC 10/30/2025 0 - 0.1 HHCCT RDW RBC Auto-Rto 17.3 % Above high normal 10/30/2025 11.5 - 14.5 HHCCT Platelet num Bld Auto 461.0 Thou/uL Above high normal 10/30/2025 150 - 450 HHCCT Potassium SerPl-sCnc 3.8 mmol/L 10/30/2025 3.4 - 5 .3 HHCCT BUN SerPl-mCnc 3.0 mg/dL Below low normal 10/30/2025 8 - 21 HHCCT Anion Gap Bld-sCnc 9.0 10/30/2025 7 - 17 HHCCT Calcium SerPl-mCnc 7.7 mg/dL Below low normal 10/30/2025 8.7 - 10.5 HHCCT Creat SerPl-mCnc 0.88 mg/dL 10/30/2025 0.4 - 1.1 H HCCT BUN/Creat SerPl 3.0 Ratio Below low normal 10/30/2025 10 - 2 5 HHCCT Sodium SerPl-sCnc 139.0 mmol/L 10/30/2025 136 - 14 5 HHCCT Chloride SerPl-sCnc 105.0 mmol/L 10/30/2025 98 - 1 07 HHCCT Glucose SerPl-mCnc 138.0 mg/dL Above high normal 10/30/2025 65 - 99 HHCCT GFR/BSA.pred SerPlBld RCA-NBN-WnPAex 79.0 10/30/2025 59 - HHCCT CO2 SerPl-sCnc 25.0 mmol/L 10/30/2025 22 - 33 HH CCT Magnesium SerPl-mCnc 1.8 mg/dL 10/30/2025 1.6 - 2. 7 HHCCT Phosphate SerPl-mCnc 2.7 mg/dL 10/30/2025 2.7 - 4. 5 HHCCT POC Glucose 171.0 mg/dL Above high normal 10/30/2025 65 - 99 HHCCT POC Glucose 183.0 mg/dL Above high normal 10/29/2025 65 - 99 HHCCT POC Glucose 190.0 mg/dL Above high normal 10/29/2025 65 - 99 HHCCT POC Glucose 130.0 mg/dL Above high normal 10/29/2025 65 - 99 HHCCT Anion Gap Bld-sCnc 10.0 10/29/2025 7 - 17 HHCCT Chloride SerPl-sCnc 106.0 mmol/L 10/29/2025 98 - 1 07 HHCCT Calcium SerPl-mCnc 7.1 mg/dL Below low normal 10/29/2025 8.7 - 10.5 HHCCT Glucose SerPl-mCnc 119.0 mg/dL Above high normal 10/29/2025 65 - 99 HHCCT Sodium SerPl-sCnc 141.0 mmol/L 10/29/2025 136 - 14 5 HHCCT Potassium SerPl-sCnc 3.5 mmol/L 10/29/2025 3.4 - 5 .3 HHCCT GFR/BSA.pred SerPlBld FME-KSY-HuRWou 75.0 10/29/2025 59 - HHCCT Creat SerPl-mCnc 0.91 mg/dL 10/29/2025 0.4 - 1.1 H HCCT BUN/Creat SerPl 5.0 Ratio Below low normal 10/29/2025 10 - 2 5 HHCCT CO2 SerPl-sCnc 25.0 mmol/L 10/29/2025 22 - 33 HH CCT BUN SerPl-mCnc 5.0 mg/dL Below low normal 10/29/2025 8 - 21 HHCCT Phosphate SerPl-mCnc 2.2 mg/dL Below low normal 10/29/2025 2 .7 - 4.5 HHCCT Magnesium SerPl-mCnc 1.6 mg/dL 10/29/2025 1.6 - 2. 7 HHCCT nRBC/100 WBC Bld Auto-Rto 0.1 /100 WBC 10/29/2025 0 - 0.1 HHCCT PMV Bld Auto 9.5 fL 10/29/2025 7.5 - 12.5 HHCCT RDW RBC Auto-Rto 17.2 % Above high normal 10/29/2025 11.5 - 14.5 HHCCT nRBC num Bld Auto 0.02 Thou/uL 10/29/2025 0 - 0.02 HHCCT MCV RBC Auto 83.0 fL 10/29/2025 80 - 100 HHCCT MCH RBC Qn Auto 26.7 pg Below low normal 10/29/2025 27 - 3 1 HHCCT Hgb Bld-mCnc 8.8 g/dL Below low normal 10/29/2025 11.7 - 15 .7 HHCCT MCHC RBC Auto-mCnc 32.2 g/dL 10/29/2025 30 - 36 HHCCT Platelet num Bld Auto 426.0 Thou/uL 10/29/2025 150 - 450 HHCCT WBC num Bld Auto 33.0 Thou/uL Critically high 10/29/2025 4 - 11 HHCCT RBC num Bld Auto 3.3 Mil/uL Below low normal 10/29/2025 4 - 5.4 HHCCT Hct VFr Bld Auto 27.3 % Below low normal 10/29/2025 35 - 47 HHCCT POC Glucose 136.0 mg/dL Above high normal 10/29/2025 65 - 99 HHCCT POC Glucose 151.0 mg/dL Above high normal 10/29/2025 65 - 99 HHCCT POC Glucose 198.0 mg/dL Above high normal 10/29/2025 65 - 99 HHCCT POC Glucose 176.0 mg/dL Above high normal 10/28/2025 65 - 99 HHCCT POC Glucose 185.0 mg/dL Above high normal 10/28/2025 65 - 99 HHCCT POC Glucose 144.0 mg/dL Above high normal 10/28/2025 65 - 99 HHCCT TSH SerPl DL<=0.005 mIU/L-aCnc 31.5 mIU/L Above high normal 10/28/2025 0.27 - 4.2 HHCCT Creat SerPl-mCnc 1.08 mg/dL 10/28/2025 0.4 - 1.1 H HCCT BUN/Creat SerPl 6.0 Ratio Below low normal 10/28/2025 10 - 2 5 HHCCT GFR/BSA.pred SerPlBld DCH-SDJ-LkPEsy 61.0 10/28/2025 59 - HHCCT Anion Gap Bld-sCnc 9.0 10/28/2025 7 - 17 HHCCT Potassium SerPl-sCnc 3.3 mmol/L Below low normal 10/28/2025 3.4 - 5.3 HHCCT Chloride SerPl-sCnc 108.0 mmol/L Above high normal 98 - 107 HHCCT Glucose SerPl-mCnc 125.0 mg/dL Above high normal 10/28/2025 65 - 99 HHCCT BUN SerPl-mCnc 6.0 mg/dL Below low normal 10/28/2025 8 - 21 HHCCT Sodium SerPl-sCnc 143.0 mmol/L 10/28/2025 136 - 14 5 HHCCT Calcium SerPl-mCnc 7.3 mg/dL Below low normal 10/28/2025 8.7 - 10.5 HHCCT CO2 SerPl-sCnc 26.0 mmol/L 10/28/2025 22 - 33 HH CCT Phosphate SerPl-mCnc 1.9 mg/dL Below low normal 10/28/2025 2 .7 - 4.5 HHCCT Magnesium SerPl-mCnc 1.3 mg/dL Below low normal 10/28/2025 1 .6 - 2.7 HHCCT MCV RBC Auto 81.0 fL 10/28/2025 80 - 100 HHCCT Hct VFr Bld Auto 22.0 % Below low normal 10/28/2025 35 - 47 HHCCT nRBC num Bld Auto 0.04 Thou/uL Above high normal 10/28/2025 0 - 0.02 HHCCT WBC num Bld Auto 31.4 Thou/uL Critically high 10/28/2025 4 - 11 HHCCT MCHC RBC Auto-mCnc 32.3 g/dL 10/28/2025 30 - 36 HHCCT RDW RBC Auto-Rto 16.5 % Above high normal 10/28/2025 11.5 - 14.5 HHCCT nRBC/100 WBC Bld Auto-Rto 0.1 /100 WBC 10/28/2025 0 - 0.1 HHCCT PMV Bld Auto 9.6 fL 10/28/2025 7.5 - 12.5 HHCCT Hgb Bld-mCnc 7.1 g/dL Below low normal 10/28/2025 11.7 - 15 .7 HHCCT MCH RBC Qn Auto 26.1 pg Below low normal 10/28/2025 27 - 3 1 HHCCT Platelet num Bld Auto 402.0 Thou/uL 10/28/2025 150 - 450 HHCCT RBC num Bld Auto 2.72 Mil/uL Below low normal 10/28/2025 4 - 5.4 HHCCT WBC num Bld Auto 32.3 Thou/uL Critically high 10/28/2025 4 - 11 HHCCT nRBC/100 WBC Bld Auto-Rto 0.1 /100 WBC 10/28/2025 0 - 0.1 HHCCT MCV RBC Auto 82.0 fL 10/28/2025 80 - 100 HHCCT Hct VFr Bld Auto 23.9 % Below low normal 10/28/2025 35 - 47 HHCCT RDW RBC Auto-Rto 16.8 % Above high normal 10/28/2025 11.5 - 14.5 HHCCT Hgb Bld-mCnc 7.5 g/dL Below low normal 10/28/2025 11.7 - 15 .7 HHCCT PMV Bld Auto 9.9 fL 10/28/2025 7.5 - 12.5 HHCCT RBC num Bld Auto 2.91 Mil/uL Below low normal 10/28/2025 4 - 5.4 HHCCT MCHC RBC Auto-mCnc 31.4 g/dL 10/28/2025 30 - 36 HHCCT Platelet num Bld Auto 450.0 Thou/uL 10/28/2025 150 - 450 HHCCT nRBC num Bld Auto 0.03 Thou/uL Above high normal 10/28/2025 0 - 0.02 HHCCT MCH RBC Qn Auto 25.8 pg Below low normal 10/28/2025 27 - 3 1 HHCCT POC Glucose 135.0 mg/dL Above high normal 10/28/2025 65 - 99 HHCCT POC Glucose 128.0 mg/dL Above high normal 10/28/2025 65 - 99 HHCCT POC Glucose 122.0 mg/dL Above high normal 10/28/2025 65 - 99 HHCCT POC Glucose 195.0 mg/dL Above high normal 10/27/2025 65 - 99 HHCCT Hgb Bld-mCnc 6.4 g/dL Below low normal 10/27/2025 11.7 - 15 .7 HHCCT Hct VFr Bld Auto 21.0 % Below low normal 10/27/2025 35 - 47 HHCCT POC Glucose 177.0 mg/dL Above high normal 10/27/2025 65 - 99 HHCCT Magnesium SerPl-mCnc 1.6 mg/dL 10/27/2025 1.6 - 2. 7 HHCCT Phosphate SerPl-mCnc 2.4 mg/dL Below low normal 10/27/2025 2 .7 - 4.5 HHCCT Glucose SerPl-mCnc 126.0 mg/dL Above high normal 10/27/2025 65 - 99 HHCCT Anion Gap Bld-sCnc 13.0 10/27/2025 7 - 17 HHCCT Calcium SerPl-mCnc 8.0 mg/dL Below low normal 10/27/2025 8.7 - 10.5 HHCCT GFR/BSA.pred SerPlBld PAU-PXG-NwKDau 51.0 Below low normal 10/27/2025 59 - HHCCT CO2 SerPl-sCnc 23.0 mmol/L 10/27/2025 22 - 33 HH CCT Creat SerPl-mCnc 1.26 mg/dL Above high normal 10/27/2025 0.4 - 1.1 HHCCT Sodium SerPl-sCnc 149.0 mmol/L Above high normal 10/27/2025 136 - 145 HHCCT BUN/Creat SerPl 7.0 Ratio Below low normal 10/27/2025 10 - 2 5 HHCCT BUN SerPl-mCnc 9.0 mg/dL 10/27/2025 8 - 21 HHCC T Potassium SerPl-sCnc 3.4 mmol/L 10/27/2025 3.4 - 5 .3 HHCCT Chloride SerPl-sCnc 113.0 mmol/L Above high normal 98 - 107 HHCCT Hct VFr Bld Auto 20.8 % Below low normal 10/27/2025 35 - 47 HHCCT nRBC num Bld Auto 0.02 Thou/uL 10/27/2025 0 - 0.02 HHCCT RBC num Bld Auto 2.57 Mil/uL Below low normal 10/27/2025 4 - 5.4 HHCCT WBC num Bld Auto 33.9 Thou/uL Critically high 10/27/2025 4 - 11 HHCCT nRBC/100 WBC Bld Auto-Rto 0.1 /100 WBC 10/27/2025 0 - 0.1 HHCCT MCV RBC Auto 81.0 fL 10/27/2025 80 - 100 HHCCT PMV Bld Auto 10.2 fL 10/27/2025 7.5 - 12.5 HHCCT MCH RBC Qn Auto 25.3 pg Below low normal 10/27/2025 27 - 3 1 HHCCT MCHC RBC Auto-mCnc 31.3 g/dL 10/27/2025 30 - 36 HHCCT Hgb Bld-mCnc 6.5 g/dL Below low normal 10/27/2025 11.7 - 15 .7 HHCCT RDW RBC Auto-Rto 16.8 % Above high normal 10/27/2025 11.5 - 14.5 HHCCT Platelet num Bld Auto 452.0 Thou/uL Above high normal 10/27/2025 150 - 450 HHCCT POC Glucose 133.0 mg/dL Above high normal 10/27/2025 65 - 99 HHCCT POC Glucose 125.0 mg/dL Above high normal 10/27/2025 65 - 99 HHCCT POC Glucose 131.0 mg/dL Above high normal 10/27/2025 65 - 99 HHCCT POC Glucose 149.0 mg/dL Above high normal 10/26/2025 65 - 99 HHCCT Ammonia Plas-sCnc 34.0 umol/L 10/26/2025 11 - 51 HHCCT 25(OH)D3 SerPl-mCnc 25.0 ng/mL Below low normal 10/26/2025 3 0 - 100 HHCCT TSH SerPl DL<=0.005 mIU/L-aCnc 14.4 mIU/L Above high normal 10/26/2025 0.27 - 4.2 HHCCT T4 Free SerPl-mCnc 0.71 ng/dL Below low normal 10/26/2025 0. 8 - 1.9 HHCCT POC Glucose 156.0 mg/dL Above high normal 10/26/2025 65 - 99 HHCCT POC Glucose 127.0 mg/dL Above high normal 10/26/2025 65 - 99 HHCCT POC Glucose 166.0 mg/dL Above high normal 10/26/2025 65 - 99 HHCCT Hgb Bld-mCnc 7.6 g/dL Below low normal 10/26/2025 11.7 - 15 .7 HHCCT WBC num Bld Auto 37.5 Thou/uL Critically high 10/26/2025 4 - 11 HHCCT MCH RBC Qn Auto 26.0 pg Below low normal 10/26/2025 27 - 3 1 HHCCT Hct VFr Bld Auto 23.1 % Below low normal 10/26/2025 35 - 47 HHCCT nRBC/100 WBC Bld Auto-Rto 0.1 /100 WBC 10/26/2025 0 - 0.1 HHCCT PMV Bld Auto 9.5 fL 10/26/2025 7.5 - 12.5 HHCCT RDW RBC Auto-Rto 16.3 % Above high normal 10/26/2025 11.5 - 14.5 HHCCT MCHC RBC Auto-mCnc 32.9 g/dL 10/26/2025 30 - 36 HHCCT RBC num Bld Auto 2.92 Mil/uL Below low normal 10/26/2025 4 - 5.4 HHCCT MCV RBC Auto 79.0 fL Below low normal 10/26/2025 80 - 100 HHCCT nRBC num Bld Auto 0.02 Thou/uL 10/26/2025 0 - 0.02 HHCCT Platelet num Bld Auto 465.0 Thou/uL Above high normal 10/26/2025 150 - 450 HHCCT Phosphate SerPl-mCnc 4.4 mg/dL 10/26/2025 2.7 - 4. 5 HHCCT Calcium SerPl-mCnc 8.4 mg/dL Below low normal 10/26/2025 8.7 - 10.5 HHCCT Creat SerPl-mCnc 1.3 mg/dL Above high normal 10/26/2025 0.4 - 1.1 HHCCT Chloride SerPl-sCnc 111.0 mmol/L Above high normal 98 - 107 HHCCT Potassium SerPl-sCnc 4.1 mmol/L 10/26/2025 3.4 - 5 .3 HHCCT Glucose SerPl-mCnc 171.0 mg/dL Above high normal 10/26/2025 65 - 99 HHCCT Anion Gap Bld-sCnc 12.0 10/26/2025 7 - 17 HHCCT GFR/BSA.pred SerPlBld ORA-AJG-HvCWvm 49.0 Below low normal 10/26/2025 59 - HHCCT CO2 SerPl-sCnc 22.0 mmol/L 10/26/2025 22 - 33 HH CCT BUN/Creat SerPl 12.0 Ratio 10/26/2025 10 - 25 HH CCT BUN SerPl-mCnc 15.0 mg/dL 10/26/2025 8 - [address] Sodium SerPl-sCnc 145.0 mmol/L 10/26/2025 136 - 14 5 HHCCT Magnesium SerPl-mCnc 1.5 mg/dL Below low normal 10/26/2025 1 .6 - 2.7 HHCCT POC Glucose 246.0 mg/dL Above high normal 10/26/2025 65 - 99 HHCCT POC Glucose 224.0 mg/dL Above high normal 10/26/2025 65 - 99 HHCCT ISTAT Ionized Calcium 1.14 mmol/L Below low normal 10/27/2025 1.17 - 1.33 HHCCT ISTAT Glucose 146.0 mg/dL Above high normal 10/27/2025 65 - 99 HHCCT ISTAT Hemoglobin 9.9 gm/dL Below low normal 10/27/2025 11.7 - 15.7 HHCCT ISTAT Potassium 4.0 mmol/L 10/27/2025 3.4 - 5.3 HH CCT ISTAT Hematocrit 29.0 % Below low normal 10/27/2025 35 - 47 HHCCT ISTAT Arterial PO2 176.0 mmHg Above high normal 10/27/2025 7 5 - 95 HHCCT ISTAT O2 Saturation 99.0 % Above high normal 10/27/2025 9 4 - 97 HHCCT ISTAT Arterial HCO3 24.0 mmol/L 10/27/2025 22 - 26 HHCCT ISTAT Arterial PCO2 44.7 mmHg 10/27/2025 32 - 45 HHCCT ISTAT Sample Type Arterial 10/27/2025 H HCCT ISTAT Arterial pH 7.34 Below low normal 10/27/2025 7.35 - 7.45 HHCCT ISTAT Arterial Total CO2 25.0 mmol/L 10/27/2025 22 - 28 HHCCT ISTAT Base Excess -2 10/27/2025 H HCCT ISTAT Sodium 145.0 mmol/L 10/27/2025 136 - [address] ISTAT Sodium 145.0 mmol/L 10/27/2025 136 - [address] ISTAT Potassium 3.9 mmol/L 10/27/2025 3.4 - 5.3 HH CCT ISTAT Glucose 128.0 mg/dL Above high normal 10/27/2025 65 - 99 HHCCT ISTAT Sample Type Arterial 10/27/2025 H HCCT ISTAT O2 Saturation 99.0 % Above high normal 10/27/2025 9 4 - 97 HHCCT ISTAT Arterial PO2 162.0 mmHg Above high normal 10/27/2025 7 5 - 95 HHCCT ISTAT Arterial PCO2 42.6 mmHg 10/27/2025 32 - 45 HHCCT ISTAT Arterial HCO3 25.0 mmol/L 10/27/2025 22 - 26 HHCCT ISTAT Arterial pH 7.38 10/27/2025 7.35 - 7.45 HHCCT ISTAT Base Excess 0.0 mmol/L 10/27/2025 HHCCT ISTAT Arterial Total CO2 26.0 mmol/L 10/27/2025 22 - 28 HHCCT ISTAT Hematocrit 24.0 % Below low normal 10/27/2025 35 - 47 HHCCT ISTAT Ionized Calcium 1.13 mmol/L Below low normal 10/27/2025 1.17 - 1.33 HHCCT ISTAT Hemoglobin 8.2 gm/dL Below low normal 10/27/2025 11.7 - 15.7 HHCCT POC Glucose 149.0 mg/dL Above high normal 10/25/2025 65 - 99 HHCCT POC Glucose 110.0 mg/dL Above high normal 10/25/2025 65 - 99 HHCCT Glucose SerPl-mCnc 129.0 mg/dL Above high normal 10/25/2025 65 - 99 HHCCT Anion Gap Bld-sCnc 13.0 10/25/2025 7 - 17 HHCCT CO2 SerPl-sCnc 22.0 mmol/L 10/25/2025 22 - 33 HH CCT BUN/Creat SerPl 13.0 Ratio 10/25/2025 10 - 25 HH CCT Potassium SerPl-sCnc 3.3 mmol/L Below low normal 10/25/2025 3.4 - 5.3 HHCCT Sodium SerPl-sCnc 141.0 mmol/L 10/25/2025 136 - 14 5 HHCCT GFR/BSA.pred SerPlBld PCI-PRX-NzTGiw 39.0 Below low normal 10/25/2025 59 - HHCCT Calcium SerPl-mCnc 8.7 mg/dL 10/25/2025 8.7 - 10.5 HHCCT Chloride SerPl-sCnc 106.0 mmol/L 10/25/2025 98 - 1 07 HHCCT Creat SerPl-mCnc 1.59 mg/dL Above high normal 10/25/2025 0.4 - 1.1 HHCCT BUN SerPl-mCnc 20.0 mg/dL 10/25/2025 8 - [address] WBC num Bld Auto 24.3 Thou/uL Above high normal 10/25/2025 4 - 11 H[facility]CT MCH RBC Qn Auto 25.5 pg Below low normal 10/25/2025 27 - 3 1 H[facility]CT MCV RBC Auto 78.0 fL Below low normal 10/25/2025 80 - 100 H[facility]CT Hgb Bld-mCnc 7.8 g/dL Below low normal 10/25/2025 11.7 - 15 .7 H[facility]CT RBC num Bld Auto 3.06 Mil/uL Below low normal 10/25/2025 4 - 5.4 HHCCT nRBC/100 WBC Bld Auto-Rto 0.1 /100 WBC 10/25/2025 0 - 0.1 H[facility]CT Platelet num Bld Auto 482.0 Thou/uL Above high normal 10/25/2025 150 - 450 H[facility]CT PMV Bld Auto 9.7 fL 10/25/2025 7.5 - 12.5 HHCCT RDW RBC Auto-Rto 16.5 % Above high normal 10/25/2025 11.5 - 14.5 HHCCT MCHC RBC Auto-mCnc 32.5 g/dL 10/25/2025 30 - 36 HHCCT Hct VFr Bld Auto 24.0 % Below low normal 10/25/2025 35 - 47 HHCCT nRBC num Bld Auto 0.02 Thou/uL 10/25/2025 0 - 0.02 HHCCT POC Glucose 148.0 mg/dL Above high normal 10/25/2025 65 - 99 HHCCT POC Glucose 126.0 mg/dL Above high normal 10/25/2025 65 - 99 HHCCT POC Glucose 157.0 mg/dL Above high normal 10/25/2025 65 - 99 H[facility]CT POC Glucose 110.0 mg/dL Above high normal 10/24/2025 65 - 99 H[facility]CT POC Glucose 83.0 mg/dL 10/24/2025 65 - 99 HHCCT POC Glucose 82.0 mg/dL 10/24/2025 65 - 99 HHCCT Magnesium SerPl-mCnc 2.1 mg/dL 10/24/2025 1.6 - 2. 7 HHCCT GFR/BSA.pred SerPlBld [id number] 25.0 Below low normal 10/24/2025 59 - HHCCT BUN SerPl-mCnc 32.0 mg/dL Above high normal 10/24/2025 8 - 2 1 H[facility]CT Anion Gap Bld-sCnc 14.0 10/24/2025 7 - 17 H[facility]CT Sodium SerPl-sCnc 146.0 mmol/L Above high normal 10/24/2025 136 - 145 HHCCT CO2 SerPl-sCnc 21.0 mmol/L Below low normal 10/24/2025 22 - 33 [facility]CT Potassium SerPl-sCnc 3.5 mmol/L 10/24/2025 3.4 - 5 .3 HHCCT Calcium SerPl-mCnc 8.4 mg/dL Below low normal 10/24/2025 8.7 - 10.5 H[facility]CT Glucose SerPl-mCnc 72.0 mg/dL 10/24/2025 65 - 99 HHCCT Creat SerPl-mCnc 2.25 mg/dL Above high normal 10/24/2025 0.4 - 1.1 HHCCT Chloride SerPl-sCnc 111.0 mmol/L Above high normal 98 - 107 H[facility]CT BUN/Creat SerPl 14.0 Ratio 10/24/2025 10 - 25 HH CCT Vancomycin SerPl-mCnc 14.0 mg/L 10/24/2025 HHCCT Time of last dose Information not given 10/24/2025 HHCCT MCV RBC Auto 81.0 fL 10/24/2025 80 - 100 [facility]CT PMV Bld Auto 10.0 fL 10/24/2025 7.5 - 12.5 [facility]CT Platelet num Bld Auto 422.0 Thou/uL 10/24/2025 150 - 450 H[facility]CT RBC num Bld Auto 2.92 Mil/uL Below low normal 10/24/2025 4 - 5.4 H[facility]CT RDW RBC Auto-Rto 16.3 % Above high normal 10/24/2025 11.5 - 14.5 HHCCT Hgb Bld-mCnc 7.5 g/dL Below low normal 10/24/2025 11.7 - 15 .7 HHCCT MCHC RBC Auto-mCnc 31.8 g/dL 10/24/2025 30 - 36 H[facility]CT MCH RBC Qn Auto 25.7 pg Below low normal 10/24/2025 27 - 3 1 CCT WBC num Bld Auto 21.8 Thou/uL Above high normal 10/24/2025 4 - 11 HHCCT Hct VFr Bld Auto 23.6 % Below low normal 10/24/2025 35 - 47 HHCCT POC Glucose 105.0 mg/dL Above high normal 10/24/2025 65 - 99 H[facility]CT POC Glucose 99.0 mg/dL 10/24/2025 65 - 99 H[facility]CT POC Glucose 115.0 mg/dL Above high normal 10/24/2025 65 - 99 H[facility]CT POC Glucose 125.0 mg/dL Above high normal 10/23/2025 65 - 99 H[facility]CT POC Glucose 74.0 mg/dL 10/23/2025 65 - 99 H[facility]CT POC Glucose 96.0 mg/dL 10/23/2025 65 - 99 HHCCT POC Glucose 108.0 mg/dL Above high normal 10/23/2025 65 - 99 [facility] Delta NO PREVIOUS RESULT 10/23/2025 - [facility] T[facility] T SerPl-mCnc 24.0 ng/L Above high normal 10/23/2025 - 15 HHT TSH SerPl DL<=0.005 mIU/L-aCnc 6.26 mIU/L Above high normal 10/23/2025 0.27 - 4.2 HHT pro BNP, N-terminal 1039.0 pg/mL Above high normal 5 - 125 H[facility]CT Phosphate SerPl-mCnc 4.5 mg/dL 10/23/2025 2.7 - 4. 5 H[facility]CT Magnesium SerPl-mCnc 2.1 mg/dL 10/23/2025 1.6 - 2. 7 [facility]CT Targets Bld Ql Smear Occasional 10/23/2025 [facility] Smear Comment See Comment 10/23/[address] [facility] [address] Segmented Neutrophil 84.0 % 10/23/2025 [facility] Basophils num Bld Auto 0.5 Thou/uL Above high normal 10/23/2025 0 - 0.2 H[facility]CT Monocyte, Absolute 1.0 Thou/uL 10/23/2025 0.2 - 1. 5 [facility]CT Lymphocytes num Bld Auto 2.4 Thou/uL 10/23/2025 1.5 - 4.5 [facility]CT Lymphocytes/leuk NFr Bld Auto 9.0 % 10/23/2025 [facility] Myelocytes/leuk NFr Bld Manual 1.0 % 10/23/2025 [facility] Myelocytes num Bld Manual 0.3 Thou/uL Above high normal 10/23/2025 - [facility] Normochromic Bld Ql Smear Present 10/23/2025 [facility] Monocytes/leuk NFr Bld Auto 4.0 % 10/23/2025 [facility] Neutrophils num Bld Auto 21.9 Thou/uL Above high normal 10/23/2025 2 - 7.5 [facility]CT Basophils/leuk NFr Bld Auto 2.0 % 10/23/2025 [facility] Normocytes Present 10/23/2025 [facility] MCV RBC Auto 81.0 fL 10/23/2025 80 - 100 [facility]CT Hct VFr Bld Auto 23.6 % Below low normal 10/23/2025 35 - 47 [facility]CT Platelet num Bld Auto 425.0 Thou/uL 10/23/2025 150 - 450 [facility]CT MCH RBC Qn Auto 26.0 pg Below low normal 10/23/2025 27 - 3 1 H[facility]CT PMV Bld Auto 10.0 fL 10/23/2025 7.5 - 12.5 [facility]CT RBC num Bld Auto 2.92 Mil/uL Below low normal 10/23/2025 4 - 5.4 H[facility]CT WBC num Bld Auto 26.1 Thou/uL Above high normal 10/23/2025 4 - 11 H[facility]CT MCHC RBC Auto-mCnc 32.2 g/dL 10/23/2025 30 - 36 [facility]CT RDW RBC Auto-Rto 16.1 % Above high normal 10/23/2025 11.5 - 14.5 HHCCT Hgb Bld-mCnc 7.6 g/dL Below low normal 10/23/2025 11.7 - 15 .7 HHCCT Hgb A1c MFr Bld 9.0 % Above high normal 10/23/2025 - 5.7 H[facility]CT Est. average glucose Bld gHb Est-mCnc 212.0 mg/dL 10/23/2025 H[facility]CT GFR/BSA.pred SerPlBld RLD-HNH-RsRUtm 17.0 Below low normal 10/23/2025 59 - HHCCT Glucose SerPl-mCnc 94.0 mg/dL 10/23/2025 65 - 99 HHCCT CO2 SerPl-sCnc 21.0 mmol/L Below low normal 10/23/2025 22 - 33 H[facility]CT Sodium SerPl-sCnc 134.0 mmol/L Below low normal 10/23/2025 1 36 - 145 HHCCT Creat SerPl-mCnc 3.12 mg/dL Above high normal 10/23/2025 0.4 - 1.1 H[facility]CT Chloride SerPl-sCnc 101.0 mmol/L 10/23/2025 98 - 1 07 H[facility]CT Calcium SerPl-mCnc 8.0 mg/dL Below low normal 10/23/2025 8.7 - 10.5 H[facility]CT Potassium SerPl-sCnc 3.7 mmol/L 10/23/2025 3.4 - 5 .3 H[facility]CT Anion Gap Bld-sCnc 12.0 10/23/2025 7 - 17 H[facility]CT BUN SerPl-mCnc 43.0 mg/dL Above high normal 10/23/2025 8 - 2 1 H[facility]CT BUN/Creat SerPl 14.0 Ratio 10/23/2025 10 - 25 HH CCT POC Glucose 68.0 mg/dL 10/23/2025 65 - 99 H[facility]CT Vit B12 SerPl-mCnc 477.0 pg/mL 10/23/2025 243 - 89 4 HHCCT Vancomycin SerPl-mCnc 16.0 mg/L 10/23/2025 HHCCT Time of last dose Information not given 10/23/2025 H[facility]CT Iron SerPl-mCnc 16.0 ug/dL Below low normal 10/23/2025 59 - 151 HHCCT Iron Satn MFr SerPl 13.0 % Below low normal 10/23/2025 20 - 50 HHCCT TIBC SerPl-mCnc 126.0 ug/dL 10/23/2025 100 - 400 H HCCT UIBC SerPl-mCnc 110.0 ug/dL Below low normal 10/23/2025 112 - 346 HHCCT Ferritin SerPl-mCnc 1172.0 ug/L Above high normal 10/23/2025 30 - 400 HHCCT Ammonia Plas-sCnc 44.0 umol/L 10/23/2025 11 - 51 HHCCT MCHC RBC Auto-mCnc 32.7 g/dL 10/23/2025 30 - 36 HHCCT WBC num Bld Auto 26.5 Thou/uL Above high normal 10/23/2025 4 - 11 HHCCT PMV Bld Auto 10.0 fL 10/23/2025 7.5 - 12.5 HHCCT MCV RBC Auto 80.0 fL 10/23/2025 80 - 100 HHCCT MCH RBC Qn Auto 26.2 pg Below low normal 10/23/2025 27 - 3 1 HHCCT Hgb Bld-mCnc 7.4 g/dL Below low normal 10/23/2025 11.7 - 15 .7 HHCCT Hct VFr Bld Auto 22.6 % Below low normal 10/23/2025 35 - 47 HHCCT RBC num Bld Auto 2.82 Mil/uL Below low normal 10/23/2025 4 - 5.4 HHCCT Platelet num Bld Auto 390.0 Thou/uL 10/23/2025 150 - 450 HHCCT RDW RBC Auto-Rto 16.1 % Above high normal 10/23/2025 11.5 - 14.5 HHCCT Result Not Detected 10/23/2025 - [facility] Lactate SerPl-sCnc 0.7 mmol/L 10/23/2025 0.5 - 1.9 H[facility]CT Chloride Ur-sCnc <20.0 mmol/L 10/23/2025 [facility] Creat Ur-mCnc 88.0 mg/dL 10/23/2025 CC T Sodium Ur-sCnc 21.0 mmol/L 10/23/2025 HH CCT Potassium Ur-sCnc 22.0 mmol/L 10/23/2025 HHCCT Squamous num/area UrnS HPF 2.0 per hpf 10/23/2025 HHCCT RBC num/area UrnS HPF 1.0 per hpf 10/23/2025 0 - 4 HHCCT Hyaline Casts num/area UrnS LPF Present 10/23/2025 CCT Bacteria UrnS Ql Micro Present Abnormal 10/23/2025 - [facility] WBC num/area UrnS HPF >25.0 per hpf Above high normal 10/23/2025 0 - 4 H[facility]CT Nitrite Ur Ql Strip Negative 10/23/2025 - CCT Bilirub Ur Strip-mCnc Negative 10/23/2025 - CCT Ketones Ur Strip-mCnc Negative 10/23/2025 - CCT Clarity Ur Cloudy 10/23/2025 HHT pH Ur Strip 5.0 10/23/2025 5 - 8 HHCCT Hgb Ur Ql Strip Small Abnormal 10/23/2025 - [facility] CT Sp Gr Ur Strip 1.01 10/23/2025 1.005 - 1.03 HHCCT Color Ur Yellow 10/23/2025 HHT Leukocyte esterase Ur Ql Strip Moderate Abnormal 10/23/2025 - [facility] Glucose Ur Strip-mCnc Negative 10/23/2025 - CCT Prot Ur Strip-mCnc Trace Abnormal 10/23/2025 - [facility]CT Basophils num Bld Auto 0.3 Thou/uL Above high normal 10/23/2025 0 - 0.2 HHCCT Monocytes/leuk NFr Bld Auto 4.0 % 10/23/2025 HHCCT Neuts Band num Bld Manual 6.0 % 10/23/2025 H[facility]CT Neutrophils num Bld Auto 23.1 Thou/uL Above high normal 10/23/2025 2 - 7.5 H[facility]CT Segmented Neutrophil 80.0 % 10/23/2025 H[facility]CT Lymphocytes/leuk NFr Bld Auto 9.0 % 10/23/2025 H[facility]CT Normochromic Bld Ql Smear Present 10/23/2025 [facility] Monocyte, Absolute 1.1 Thou/uL 10/23/2025 0.2 - 1. 5 HHCCT Normocytes Present 10/23/2025 HHT Lymphocytes num Bld Auto 2.4 Thou/uL 10/23/2025 1.5 - 4.5 H[facility]CT Basophils/leuk NFr Bld Auto 1.0 % 10/23/2025 H[facility]CT MCHC RBC Auto-mCnc 32.4 g/dL 10/23/2025 30 - 36 H[facility]CT RBC num Bld Auto 2.71 Mil/uL Below low normal 10/23/2025 4 - 5.4 HHCCT Hct VFr Bld Auto 21.6 % Below low normal 10/23/2025 35 - 47 H[facility]CT Platelet num Bld Auto 389.0 Thou/uL 10/23/2025 150 - 450 HHCCT MCH RBC Qn Auto 25.8 pg Below low normal 10/23/2025 27 - 3 1 HHCCT RDW RBC Auto-Rto 16.0 % Above high normal 10/23/2025 11.5 - 14.5 HHCCT Hgb Bld-mCnc 7.0 g/dL Below low normal 10/23/2025 11.7 - 15 .7 HHCCT MCV RBC Auto 80.0 fL 10/23/2025 80 - 100 HHCCT PMV Bld Auto 9.7 fL 10/23/2025 7.5 - 12.5 HHCCT WBC num Bld Auto 26.9 Thou/uL Above high normal 10/23/2025 4 - 11 HHCCT CO2 SerPl-sCnc 20.0 mmol/L Below low normal 10/23/2025 22 - 33 HHCCT Albumin SerPl-mCnc 3.5 g/dL 10/23/2025 3.5 - 5 HHCCT Anion Gap Bld-sCnc 19.0 Above high normal 10/23/2025 7 - 17 HHCCT Bilirub SerPl-mCnc 0.3 mg/dL 10/23/2025 0.2 - 1 H[facility]CT BUN/Creat SerPl 12.0 Ratio 10/23/2025 10 - 25 HH CCT Albumin/Glob SerPl 0.9 Ratio Below low normal 10/23/2025 1 - 3 [facility]CT BUN SerPl-mCnc 45.0 mg/dL Above high normal 10/23/2025 8 - 2 1 H[facility]CT Glucose SerPl-mCnc 85.0 mg/dL 10/23/2025 65 - 99 HHCCT Calcium SerPl-mCnc 7.8 mg/dL Below low normal 10/23/2025 8.7 - 10.5 HHCCT Globulin Ser Calc-mCnc 3.7 g/dL 10/23/2025 1.5 - 3.9 HHCCT Creat SerPl-mCnc 3.83 mg/dL Above high normal 10/23/2025 0.4 - 1.1 HHCCT Sodium SerPl-sCnc 135.0 mmol/L Below low normal 10/23/2025 1 36 - 145 HHCCT ALT SerPl-cCnc 28.0 U/L 10/23/2025 10 - 50 HHCC T ALP SerPl-cCnc 125.0 U/L Above high normal 10/23/2025 32 - 1 22 HHCCT Prot SerPl-mCnc 7.2 g/dL 10/23/2025 6.3 - 8.[address] Potassium SerPl-sCnc 3.2 mmol/L Below low normal 10/23/2025 3.4 - 5.3 HHCCT GFR/BSA.pred SerPlBld KOB-VFU-MeFTaf 13.0 Below low normal 10/23/2025 59 - HHCCT AST SerPl-cCnc 56.0 U/L Above high normal 10/23/2025 10 - 5 0 HHCCT Chloride SerPl-sCnc 96.0 mmol/L Below low normal 10/23/2025 98 - 107 HHCCT Lipase SerPl-cCnc 32.0 U/L 10/23/2025 13 - 60 H HCCT Lactate SerPl-sCnc 0.9 mmol/L 10/23/2025 0.5 - 1.9 HHCCT aPTT PPP 26.0 seconds 10/23/2025 25 - 36 HHCCT Anticoagulant NO ANTI COAGULANT MEDS 10/22/2025 HHCCT INR PPP 1.3 10/23/2025 HHCCT Prothrombin time 15.0 seconds Above high normal 10/23/2025 1 0 - 13.5 HHCCT Anticoagulant OTHER AGENT OR UNKNOWN 10/22/2025 HHCCT POC Glucose 96.0 mg/dL 10/22/2025 65 - 99 HHCCT Problems Problem Status Onset Date Problem Type Date of Resoluti on Source Hypokalemia active 2025-10-23 ProblemAct [facility] Vitamin D deficiency active 2025-02-11 ProblemAct H[facility]CT MADELINE (acute kidney injury) active 2025-10-23 ProblemAct [facility] Hypertension active 2025-10-23 ProblemAct H[facility]CT Bipolar disorder active 2015-11-03 ProblemAct H HCCT Schizophrenia active 2025-10-23 ProblemAct [facility] T Hyperlipidemia active 2015-11-[address] Postoperative hypothyroidism active 2025-02-11 ProblemAct HHCCT Gastroesophageal reflux disease active 2023-11-08 ProblemAct H[facility]CT Type 2 diabetes mellitus active 2016-03-16 ProblemAct HHCCT Tubo-ovarian abscess active 2025-10-23 ProblemAct HHCCT Morbid obesity active 2025-10-[address] Urinary tract infection active 2025-10-23 ProblemAct HHCCT Long-term current use of opiate analgesic active 2025-05-24 ProblemAct HHCCT Obstructive sleep apnea syndrome active 2015-11-03 ProblemAct H[facility]CT High anion gap metabolic acidosis active 2025-10-23 ProblemAct H[facility]CT Hx of papillary thyroid carcinoma active 2023-11-08 ProblemAct HHCCT Hypocalcemia active 2025-10-23 ProblemAct H[facility]CT Anemia active 2025-10-23 ProblemAct H[facility]CT Sepsis active 2025-10-23 ProblemAct H[facility]CT Varicose veins of right lower extremity with inflammation active 2025-02-11 ProblemAct H[facility]CT Ureteral obstruction active 2025-10-22 ProblemAct H[facility] Status post thyroidectomy active 2023-11-08 ProblemAct HHCCT Uterine fibroid active 2025-02-11 ProblemAct HH CCT Non-small cell lung cancer active 2025-01-27 ProblemAct H[facility]CT Primary malignant neoplasm of left lower lobe of lung active 2025-10-23 ProblemAct H HCCT Chronic obstructive lung disease active 2015-11-03 ProblemAct H[facility]CT Encounters Encounter Type Encounter Reason Primary Diagnosis Location Date Inpatient Salpingitis and oophoritis, unspecified Salpingitis and oophoritis, unspecified [facility] & Away 10/22/2025 [facility] [place] 10/22/2025 [facility] [place] 10/22/2025 [facility] [place] [facility] Care Team Organization Name Specialty Phone Email Start Date End Da te [facility] 10/23/2025 [facility] 10/22/2025 [facility] 10/22/2025
--- OUTSIDE RECORDS SUMMARY | 2025-11-08 22:12 | XMS_ITS | Encounter Summary ---
Author Organization [facility] Address [address] [facility] [address] [place] [phone] Phone Care Team Providers Care Molder Hand Name Role Phone Linda Murphy DO Primary Care Provider Reason for Visit * Auth/Cert (Routine) Specialty Diagnoses / Procedures Referred By Rolf t Referred To Contact Referral ID Status Reason Start Date Expiration Date Visits Re quested Visits Authorized [id number] 1 1 Encounter Details Date Type Department Care Team (Late st Contact Info) Description 11/08/2025 Home Care Visit [facility] [address] [place] [phone] Janet Jacobs RN [address] [place] [address] [email or web address] CASE COMMUNICATION Social History Tobacco Use Types Packs/Day Years [...] 11/11/2025 Appointment [facility] [address] [place] [address] Fariba Mckeon, KRYSTYNA [address] [place] [address] 11/15/2025 4:30 AM EST Appointment [facility] [address] [place] [address] Fariba Mckeon RN [address] [place] [address] 11/18/2025 1:30 AM EST Appointment [facility] [address] [place] [address] Fariba Mckeon RN [address] [place] [address] 11/22/2025 4:00 AM EST Appointment [facility] [address] [place] [address] Dadzie, Fariba Andoh, RN [address] [place] [address] 11/25/2025 12:30 AM EST Appointment [facility] [address] [place] [phone] Fariba Mckeon, RN [address] [place] [address] 11/29/2025 3:00 AM EST Appointment [facility] [address] [place] [phone] Fariba Mckeon, RN [address] [place] [address] 12/02/2025 12:30 AM EST Appointment [facility] [address] [place] [phone] Fariba Mckeon, RN [address] [place] [address] 12/06/2025 3:30 AM EST Appointment [facility] [address] [place] [phone] Fariba Mckeon, RN [address] [place] [address] 12/09/2025 1:00 AM EST Appointment [facility] [address] [place] [phone] Fariba Mckeon, RN [address] [place] [address] 12/13/2025 2:30 AM EST Appointment [facility] [address] [place] [phone] Fariba Mckeon, RN [address] [place] [address] 12/16/2025 12:30 AM EST Appointment [facility] [address] [place] [phone] Fariba Mckeon, RN [address] [place] [address] 12/20/2025 1:00 AM EST Appointment [facility] [address] [place] [phone] Fariba Mckeon, RN [address] [place] [address] 12/23/2025 12:30 AM EST Appointment [facility] [address] [place] [phone] Fariba Mckeon, RN [address] [place] [address] 12/27/2025 1:00 AM EST Appointment [facility] [address] [place] [phone] Fariba Mckeon, RN [address] [place] [address] 12/30/2025 12:30 AM EST Appointment [facility] [address] [place] [phone] Fariba Mckeon, RN [address] [place] [address] documented as of this encounter Visit Diagnoses Not on filedocumented in this encounter Care Teams Molder Hand Relationship Specialty Start Date End Date Linda Murphy DO [address] [place] [phone] PCP - General Family Medicine 07/03/24 documented as of this encounter Additional Source Comments The information contained in this document represents components of the legal health record. It is not the complete legal health record.[facility]
--- OUTSIDE RECORDS SUMMARY | 2025-11-08 22:12 | XMS_ITS | Encounter Summary ---
Author Organization [facility] Address [address] [facility] [address] [place] [phone] Phone Care Team Providers Care Decorating Inspector Name Role Phone Linda Murphy DO Primary Care Provider [phone] Encounter Details Date Type Department Care Team (Late st Contact Info) Description 07/03/2024 Procedure Pass [facility], Ct Scan - [address] [address] Social History Tobacco Use Types Packs/Day Years [...] 11/11/2025 Appointment [facility] [address] [place] [phone] Fariba Mckeon, KRYSTYNA [address] [place] [address] [email or web address] 11/15/2025 4:30 AM EST Appointment [facility] [address] [place] [phone] Fariba Mckeon, KRYSTYNA [address] [place] [address] [email or web address] 11/18/2025 1:30 AM EST Appointment [facility] [address] [place] [address] Fariba Mckeon, RN [address] [place] [address] [email or web address] 11/22/2025 4:00 AM EST Appointment [facility] [address] [place] [address] Fariba Mckeon, RN [address] [place] [address] [email or web address] 11/25/2025 12:30 AM EST Appointment [facility] [address] [place] [address] Farbia Mckeon, RN [address] [place] [address] [email or web address] 11/29/2025 3:00 AM EST Appointment [facility] [address] [place] [phone] Fariba Mckeon, RN [address] [place] [address] [email or web address] 12/02/2025 12:30 AM EST Appointment [facility] [address] [place] [phone] Fariba Mckeon, RN [address] [place] [address] [email or web address] 12/06/2025 3:30 AM EST Appointment [facility] [address] [place] [phone] Fariba Mckeon, RN [address] [place] [address] [email or web address] 12/09/2025 1:00 AM EST Appointment [facility] [address] [place] [phone] Fariba Mckeon, RN [address] [place] [address] [email or web address] 12/13/2025 2:30 AM EST Appointment [facility] [address] [place] [address] Fariba Mckeon, RN [address] [place] [address] [email or web address] 12/16/2025 12:30 AM EST Appointment [facility] [address] [place] [address] Fariba Mckeon, RN [address] [place] [address] [email or web address] 12/20/2025 1:00 AM EST Appointment [facility] [address] [place] [address] Fariba Mckeon, RN [address] [place] [address] [email or web address] 12/23/2025 12:30 AM EST Appointment [facility] [address] [place] [phone] Fariba Mckeon RN [address] [place] [address] [email or web address] 12/27/2025 1:00 AM EST Appointment [facility] [address] [place] [phone] Fariba Mckeon, KRYSTYNA [address] [place] [address] [email or web address] 12/30/2025 12:30 AM EST Appointment [facility] [address] [place] [phone] Fariba Mckeon RN [address] [place] [address] [email or web address] documented as of this encounter Visit Diagnoses Not on filedocumented in this encounter Care Teams Decorating Inspector Relationship Specialty Start Date End Date Linda Murphy DO [address] [place] [phone] PCP - General Family Medicine 07/03/24 documented as of this encounter Additional Source Comments The information contained in this document represents components of the legal health record. It is not the complete legal health record.[facility]
--- OUTSIDE RECORDS SUMMARY | 2025-11-08 22:12 | XMS_ITS | Encounter Summary ---
Author Organization [facility] Address [address] [facility] [address] [place] [phone] Phone Care Team Providers Care Emerging Solutions Executive Name Role Phone Linda Murphy DO Primary Care Provider Reason for Visit * Auth/Cert (Routine) Specialty Diagnoses / Procedures Referred By Rolf t Referred To Contact Referral ID Status Reason Start Date Expiration Date Visits Re quested Visits Authorized [id number] 1 1 Encounter Details Date Type Department Care Team (Late st Contact Info) Description 11/08/2025 Home Care Visit [facility] [address] [place] [address] Carmencita Arriaza RN [address] [place] [address] [email or web address] TELEPHONE ENCOUNTER Social History Tobacco Use Types Packs/Day Years [...] 11/11/2025 Appointment [facility] [address] [place] [address] Fariba Mckeon RN [address] [place] [address] 11/15/2025 4:30 AM EST Appointment [facility] [address] [place] [address] Fariba Mckeon RN [address] [place] [address] 11/18/2025 1:30 AM EST Appointment [facility] [address] [place] [address] Fariba Mckeon, KRYSTYNA [address] [place] [address] 11/22/2025 4:00 AM EST Appointment [facility] [address] [place] [address] Dadzie, Fariba Andoh, RN [address] [place] [address] 11/25/2025 12:30 AM EST Appointment [facility] [address] [place] [phone] Fariba Mckeon, RN [address] [place] [address] 11/29/2025 3:00 AM EST Appointment [facility] [address] [place] [phone] Fariba Mckeon, RN [address] [place] [address] 12/02/2025 12:30 AM EST Appointment [facility] [address] [place] [phone] Fariba Mckeon, RN [address] [place] [address] 12/06/2025 3:30 AM EST Appointment [facility] [address] [place] [phone] Fariba Mckeon, RN [address] [place] [address] 12/09/2025 1:00 AM EST Appointment [facility] [address] [place] [phone] Fariba Mckeon, RN [address] [place] [address] 12/13/2025 2:30 AM EST Appointment [facility] [address] [place] [phone] Fariba Mckeon, RN [address] [place] [address] 12/16/2025 12:30 AM EST Appointment [facility] [address] [place] [phone] Fariba Mckeon, KRYSTYNA [address] [place] [address] 12/20/2025 1:00 AM EST Appointment [facility] [address] [place] [phone] Fariba Mckeon, KRYSTYNA [address] [place] [address] 12/23/2025 12:30 AM EST Appointment [facility] [address] [place] [phone] Fariba Mckeon, KRYSTYNA [address] [place] [address] 12/27/2025 1:00 AM EST Appointment [facility] [address] [place] [phone] Fariba Mckeon, RN [address] [place] [address] 12/30/2025 12:30 AM EST Appointment [facility] [address] [place] [phone] Fariba Mckeon, RN [address] [place] [address] documented as of this encounter Visit Diagnoses Not on filedocumented in this encounter Care Teams Emerging Solutions Executive Relationship Specialty Start Date End Date Linda Murphy DO [address] [place] [address] PCP - General Family Medicine 07/03/24 documented as of this encounter Additional Source Comments The information contained in this document represents components of the legal health record. It is not the complete legal health record.[facility]
--- OUTSIDE RECORDS SUMMARY | 2025-11-08 22:12 | XMS_ITS | Encounter Summary ---
Author Organization [employer] Address [address] [facility] 7t [place] [address] Care Team Providers Care Oracle Software Engineer Name Role Phone Linda Murphy DO Primary Care Provider [phone] Reason for Visit * Reason Onset Date Comments Hospital Follow-up 10/12/2025 Encounter Details Date Type Department Care Team ([facility] st Contact Info) Description 10/12/2025 Telephone [facility] [address] [place] [address] Linda Murphy DO [address] [place] [address] Hospital Follow-up Social History Tobacco Use Types [...] from pt requesting a HDF appt. Hospital: [facility] Date of admission: 10/01 Discharge date: 10/08 Diagnosed: cyst, vomiting *Send message to [facility] Clinical Care Coordinators documented in this encounter Plan of Treatment Upcoming Encounters Date Type Department Care Team ([facility] st Contact Info) Description 11/10/2025 2:30 PM EST Office Visit [facility] [address] [place] [address] Josseline Solis MD [address] [place] [address] documented as of this encounter Goals Goal Patient Goal Type Associated Problems Recent Progress Patient-Stated? Author Hemoglobin A1c < 7 Result Component 8.7( 9:13 AM EST) No Neri Yang, PharmD Help patients manage their type 2 diabetes Care Plan Help patients manage their type 2 diabetes No Janette Rmaires [place] Weekly blood pressure task Care Plan [...] documented as of this encounter Care Teams Oracle Software Engineer Relationship Specialty Start Date End Date Linda Murphy DO [address] [place] [address] PCP - General Family Medicine 11/24/12 documented as of this encounter
--- OUTSIDE RECORDS SUMMARY | 2025-11-08 22:12 | XMS_ITS | Encounter Summary ---
Author Organization [facility] Address [address] [facility] [address] [place] [address] Phone Care Team Providers Care Geology Associate Name Role Phone Linda Murphy DO Primary Care Provider [phone] Encounter Details Date Type Department Care Team (Late st Contact Info) Description 11/06/2025 Plan of Care Documentation [facility] [address] [place] [phone] Social History Tobacco Use Types Packs/Day Years [...] st Contact Info) Description 11/11/2025 Appointment [facility] [address] [place] [address] Fariba Mckeon, KRYSTYNA [address] [employer] [place] [address] [email or web address] 11/15/2025 4:30 AM EST Appointment [facility] [address] [place] [address] Fariba Mckeon, RN [address] [employer] [place] [address] [email or web address] 11/18/2025 1:30 AM EST Appointment [facility] [address] [place] [address] Fariba Mckeon RN [address] [place] [address] [email or web address] 11/22/2025 4:00 AM EST Appointment [facility] [address] [place] [address] Fariba Mckeon, KRYSTYNA [address] [employer] [place] [address] [email or web address] 11/25/2025 12:30 AM EST Appointment [facility] [address] [place] [address] Dadzie, Fariba Andoh, RN [address] [place] [address] [email or web address] 11/29/2025 3:00 AM EST Appointment [facility] [address] [place] [phone] Fariba Mckeon, RN [address] [place] [address] [email or web address] 12/02/2025 12:30 AM EST Appointment [facility] [address] [place] [phone] Fariba Mckeon, RN [address] [place] [address] [email or web address] 12/06/2025 3:30 AM EST Appointment [facility] [address] [place] [phone] Fariba Mckeon, RN [address] [place] [address] [email or web address] 12/09/2025 1:00 AM EST Appointment [facility] [address] [place] [phone] Fariba Mckeon, RN [address] [place] [address] [email or web address] 12/13/2025 2:30 AM EST Appointment [facility] [address] [place] [phone] Fariba Mckeon, RN [address] [place] [address] [email or web address] 12/16/2025 12:30 AM EST Appointment [facility] [address] [place] [phone] Fariba Mckeon, RN [address] [place] [address] [email or web address] 12/20/2025 1:00 AM EST Appointment [facility] [address] [place] [phone] Fariba Mckeon, KRYSTYNA [address] [place] [address] [email or web address] 12/23/2025 12:30 AM EST Appointment [facility] [address] [place] [phone] Fariba Mckeon, KRYSTYNA [address] [place] [address] [email or web address] 12/27/2025 1:00 AM EST Appointment [facility] [address] [place] [phone] Fariba Mckeon, KRYSTYNA [address] [employer] [address] [email or web address] 12/30/2025 12:30 AM EST Appointment [facility] [address] [place] [phone] Fariba Mckeon, KRYSTYNA [address] [place] [address] [email or web address] documented as of this encounter Visit Diagnoses Not on filedocumented in this encounter Care Teams Geology Associate Relationship Specialty Start Date End Date Linda Murphy DO [address] [place] [address] PCP - General Family Medicine 07/03/24 documented as of this encounter Additional Source Comments The information contained in this document represents components of the legal health record. It is not the complete legal health record.[facility]
--- OUTSIDE RECORDS SUMMARY | 2025-11-08 22:12 | XMS_ITS | Encounter Summary ---
Author Organization [employer] Address [address] [facility] [address] 7t [place] [address] Care Team Providers Care Technicians And Trades Workers Name Role Phone Linda Murphy DO Primary Care Provider [phone] Reason for Visit * Reason Comments Med Refill Encounter Details Date Type Department Care Team ([facility] st Contact Info) Description 07/14/2025 Refill [facility] [address] [place] [address] Linda Murphy DO [address] [place] [address] Chronic bilateral low back pain without sciatica [...] Description 11/10/2025 2:30 PM EST Office Visit [facility] MEDICINE [address] [place] [address] Josseline Solis MD [address] [place] [address] documented as of this encounter Goals Goal [...] documented as of this encounter Care Teams Technicians And Trades Workers Relationship Specialty Start Date End Date Linda Murphy DO [address] [place] [address] PCP - General Family Medicine 11/24/12 documented as of this encounter
--- OUTSIDE RECORDS SUMMARY | 2025-11-08 22:12 | XMS_ITS | Encounter Summary ---
Author Organization [employer] Address [address] [facility] 7t [place] [address] Care Team Providers Care Esthetician Makeup Artist Name Role Phone Linda Murphy DO Primary Care Provider [phone] DellogNeri tovar PharmD Unavailable Unavail able Antionette Murphy PharmD Unavailable Reason for Visit * Reason Onset Date Comments triage 11/14/2022 Encounter Details Date Type Department Care Team (Late st Contact Info) Description 11/14/2022 Telephone [facility] [address] [place] [address] Linda Murphy DO [address] [place], [place] [phone] triage Social History Tobacco Use Types Packs/Day [...] EST Triage call Pt reports seen [facility] today. Pt reports [...] Description 11/10/2025 2:30 PM EST Office Visit [facility] [address] [place] [address] Josseline Solis MD [address] [place], [place] documented as of this encounter Visit Diagnoses Not on filedocumented in this encounter Care Teams Esthetician Makeup Artist Relationship Specialty Start Date End Date Linda Murphy DO [address] [place] [address] PCP - General Family Medicine 11/24/12 Nrei Yang PharmD [address] [place] [address] Pharmacist Internal Medicine 11/23/22 10/17/23 Antionette Murphy PharmD [address] [place] [address] Pharmacist Internal Medicine 07/15/24 02/25/25 documented as of this encounter
--- OUTSIDE RECORDS SUMMARY | 2025-11-08 22:12 | XMS_ITS | Encounter Summary ---
Author Organization [facility] Address [address] [facility] [address] [place] [address] Phone Care Team Providers Care Profile Trimmer Name Role Phone Linda Murphy DO Primary Care Provider [phone] Encounter Details Date Type Department Care Team (Late st Contact Info) Description 11/08/2025 Episode Documentatio n Update [facility] [address] [place] [phone] Social History Tobacco Use Types Packs/Day Years [...] 11/11/2025 Appointment [facility] [address] [place] [address] Fariba Mckeon RN [address] [place] [address] 11/15/2025 4:30 AM EST Appointment [facility] [address] [place] [address] Fariba Mckeon, RN [address] [place] [address] 11/18/2025 1:30 AM EST Appointment [facility] [address] [place] [address] Fariba Mckeon, KRYSTYNA [address] [place] [address] 11/22/2025 4:00 AM EST Appointment [facility] [address] [place] [address] Fariba Mckeon, KRYSTYNA [address] [place] [address] 11/25/2025 12:30 AM EST Appointment [facility] [address] [place] [address] Dadzie, Fariba Andoh, RN [address] [place] [address] 11/29/2025 3:00 AM EST Appointment [facility] [address] [place] [phone] Fariba Mckeon, RN [address] [place] [address] 12/02/2025 12:30 AM EST Appointment [facility] [address] [place] [phone] Fariba Mckeon, RN [address] [place] [address] 12/06/2025 3:30 AM EST Appointment [facility] [address] [place] [phone] Fariba Mckeon, RN [address] [place] [address] 12/09/2025 1:00 AM EST Appointment [facility] [address] [place] [phone] Fariba Mckeon, RN [address] [place] [address] 12/13/2025 2:30 AM EST Appointment [facility] [address] [place] [phone] Fariba Mckeon, RN [address] [place] [address] 12/16/2025 12:30 AM EST Appointment [facility] [address] [place] [phone] Fariba Mckeon, RN [address] [place] [address] 12/20/2025 1:00 AM EST Appointment [facility] [address] [place] [phone] Fariba Mckeon, KRYSTYNA [address] [place] [address] 12/23/2025 12:30 AM EST Appointment [facility] [address] [place] [phone] Fariba Mckeon, RN [address] [place] [address] 12/27/2025 1:00 AM EST Appointment [facility] [address] [place] [phone] Fariba Mckeon, KRYSTYNA [address] [place] [address] 12/30/2025 12:30 AM EST Appointment [facility] [address] [place] [phone] Fariba Mckeon, RN [address] [place] [address] documented as of this encounter Visit Diagnoses Not on filedocumented in this encounter Care Teams Profile Trimmer Relationship Specialty Start Date End Date Linda Murphy DO [address] [place] [address] PCP - General Family Medicine 07/03/24 documented as of this encounter Additional Source Comments The information contained in this document represents components of the legal health record. It is not the complete legal health record.[facility]
--- OUTSIDE RECORDS SUMMARY | 2025-11-08 22:12 | XMS_ITS | Encounter Summary ---
Author Organization [employer] Address [address] [place] [address] 7t [place] [address] Care Team Providers Care Tap Grinder Name Role Phone Linda Murphy DO Primary Care Provider DelNeri zavala PharmD Unavailable Unavail able Antionette Murphy PharmD Unavailable Reason for Visit * Reason Comments Med Refill Encounter Details Date Type Department Care Team (Late st Contact Info) Description 07/08/2023 Refill [facility] MEDICINE [address] [place] [address] Linda Murphy DO [address] [place] [address] Pain Social History Tobacco Use Types Packs/Day [...] Description 11/10/2025 2:30 PM EST Office Visit [facility] MEDICINE [address] [place] [address] Josseline Solis MD [address] [place] [address] documented as of this encounter Goals Goal [...] documented as of this encounter Care Teams Tap Grinder Relationship Specialty Start Date End Date Linda Murphy DO [address] [place] [address] PCP - General Family Medicine 11/24/12 Neri Yang, PharmD [address] [place] [address] Pharmacist Internal Medicine 11/23/22 10/17/23 Antionette Murphy PharmD [address] [place] [address] Pharmacist Internal Medicine 07/15/24 02/25/25 documented as of this encounter
--- OUTSIDE RECORDS SUMMARY | 2025-11-08 22:12 | XMS_ITS | Clinical Summary ---
Author Organization [employer] Address [address] [place] [address] [address] [place] [address] Care Team Providers Care Steel Hanger Name Role Phone Linda Murphy DO Primary Care Provider [phone] Allergies Active Allergy Reactions Criticality Noted Date [...] disease, unspecified COPD type (CMS/HCC) ([facility]) INHALE 1 AMPULE USING A NEBULIZER FOUR TIMES DAILY NEEDED FOR ASTHMA OR (for COPD) 180 mL 2 07/23/20 24 Active tiotropium (Spiriva HandiHaler) 18 MCG inhalation capsuleIndicatio ns:Chronic obstructive pulmonary disease, unspecified COPD type (CMS/HCC) ([facility]) USE 1 CAPSULE FOR INHALATION ONCE A DAY DO NOT SWALLOW CAPSULE 30 capsule 11 12/01/19 25 Active Mometasone Furoate (Asmanex HFA) 100 MCG/ACT aerosol Inhale 2 Act (200 mcg) 2 times daily. 13 g 11 12/23/19 25 Active Ascorbic Acid (vitamin C) 250 MG tablet TAKE 1 TABLET BY MOUTH TWICE DAILY AT NOON AND IN THE EVENING WITH IRON 180 tablet 3 12/23/19 25 Active pantoprazole [...] NOON 90 tablet 3 01/30/20 25 Active montelukast (Singulair) 10 MG tablet TAKE 1 TABLET BY MOUTH EVERY EVENING 90 tablet 3 5 4:00 PM EST 04/20/20 25 Active lidocaine (Lidoderm) 5 % [...] 18 g 2 5 3:09 PM EST 06/28/20 25 Active Diclofenac Sodium 1 % gel Apply 2 g topically if needed in the morning, at noon, in the evening, and at bedtime (pain). 150 g 3 07/20/20 25 Active Aspirin Low Dose 81 MG EC tabletIndication s:Type 2 diabetes mellitus with other specified complication, unspecified whether fdc insulin use (HCC) TAKE 1 TABLET BY MOUTH AT BEDTIME 90 tablet 1 08/05/20 25 Active gabapentin (Neurontin) 600 MG tablet TAKE 1 TABLET BY MOUTH THREE TIMES DAILY 90 tablet 3 5 3:09 PM EST 08/06/20 25 Active Alcohol Swabs (Alcohol Prep) 70 % padsIndications: Type 2 diabetes mellitus without complication, without long-term current use of insulin ([facility]) USE EVERY DAY UP TO TWICE DAILY 100 each 11 08/31/20 Active TRUEplus Lancets 33G miscIndications: Type 2 diabetes mellitus without complication, without long-term current use of insulin ([facility]) USE TO TEST BLOOD SUGAR UP TO TWICE DAILY 100 each 08/31/20 Active glucose blood (FREESTYLE LITE) test stripIndications :Type 2 diabetes mellitus without complication, without long-term current use of insulin ([facility]) USE TO TEST BLOOD SUGAR UP TO TWICE DAILY 100 strip 11 08/31/20 Active ferrous sulfate 325 (65 Fe) MG EC tablet TAKE 1 TABLET BY MOUTH EVERY DAY. DO NOT BREAK, CRUSH, DISSOLVE OR CHEW 30 tablet 11 5 4:00 PM EST 08/31/20 25 Active metFORMIN XR (Glucophage-XR) 500 MG 24 hr tabletIndication s:Type 2 diabetes mellitus without complication, without long-term current use of insulin ([facility]) Take 2 tablets (1,000 mg) by mouth with breakfast and with evening meal. Do not crush, chew, or split. 360 tablet 1 09/02/20 25 Active Blood Glucose Monitoring Suppl (FreeStyle Lite) deviceIndication s:Type 2 diabetes mellitus without complication, without long-term current use of insulin ([facility]) Inject 1 each under the skin 2 times daily. Use to test blood sugar twice daily, as directed 1 each 09/15/20 25 Active atorvastatin (Lipitor) 40 MG tablet TAKE 1 TABLET BY MOUTH AT BEDTIME 30 tablet 5 5 4:00 PM EST 09/27/20 25 Active semaglutide (Rybelsus) 7 MG tabletIndication s:Type 2 diabetes mellitus without complications (HCC) TAKE 1 TABLET BY MOUTH EVERY MORNING 30 MINUTES BEFORE A MEAL 30 tablet 5 5 4:00 PM EST 09/27/20 25 Active glipiZIDE (Glucotrol) 5 MG tablet TAKE 2 TABLETS BY MOUTH TWICE DAILY IN THE MORNING AND EVENING BEFORE MEALS 120 tablet 5 09/27/20 25 Active docusate sodium (Colace) 100 MG capsule Take 1 capsule (100 mg) by mouth 2 times daily. 60 capsule 2 5 4:00 PM EST 10/15/20 25 Active baclofen (Lioresal) 10 MG tablet TAKE 1 TABLET BY MOUTH THREE TIMES DAILY IN THE MORNING, AT NOON, AND AT BEDTIME NEEDED FOR MUSCLE SPASMS 60 tablet 3 5 4:00 PM EST 10/18/20 25 Active Emollient (Eucerin Advanced Repair) cream Apply 1 Application. topically 2 times daily. 454 g 3 10/18/20 25 Active ARIPiprazole (Abilify) 20 MG tablet Take 1 tablet (20 mg) by mouth Once per day. 30 tablet 5 4:00 PM EST 10/18/20 25 Active buPROPion XL (Wellbutrin XL) 150 MG 24 hr tablet Take 1 tablet (150 mg) by mouth Once per day. 30 tablet 5 4:00 PM EST 10/18/20 25 Active buPROPion XL (Wellbutrin XL) 300 MG 24 hr tablet Take 1 tablet (300 mg) by mouth Once per day. 30 tablet 5 4:00 PM EST 10/18/20 25 Active hydrOXYzine pamoate (Vistaril) 50 MG capsuleIndicatio ns:Anxiety Take 1 capsule (50 mg) by mouth if needed in the morning, at noon, and at bedtime for anxiety. 90 capsule 5 4:00 PM EST 10/18/20 25 Active haloperidol (Haldol) 5 MG tablet Take 0.5 tablets (2.5 mg) by mouth 2 times daily. 30 tablet 5 4:00 PM EST 10/18/20 25 Active loratadine (Claritin) 10 MG tablet Take 0.5 tablets (5 mg) by mouth in the morning. 30 tablet 11 10/27/20 25 Active buPROPion XL (Wellbutrin XL) 300 MG [...] TIMES DAILY NEEDED FOR ANXIETY 07/15/20 24 2024 Discontinued(R eorder (will not trigger notification to Pharmacy)) loratadine (Claritin) 10 MG tablet TAKE 1 TABLET BY MOUTH EVERY MORNING 30 tablet 11 5 4:00 PM EST 10/27/20 24 2024 Discontinued baclofen (Lioresal) 10 MG tablet Take 1 tablet (10 mg) by mouth if needed in the morning, at noon, and at bedtime for muscle spasms. 60 tablet 3 07/20/20 25 2024 Discontinued acetaminophen (Tylenol 8 Hour) 650 MG ER tabletIndication s:Acute post-traumatic headache, not intractable TAKE 1 TABLET BY MOUTH EVERY 8 HOURS NEEDED FOR PAIN OR FEVER 60 tablet 3 07/28/20 25 2024 Discontinued(R eorder (will not trigger notification to Pharmacy)) acetaminophen (Tylenol 8 Hour) 650 MG ER tabletIndication s:Edema of right foot Take 1 tablet (650 mg) by mouth every 8 (eight) hours if needed for mild pain or moderate pain for up to 10 days. 30 tablet 10/14/20 25 2024 Active Problems Problem Noted Date Diagnosed [...] daily -cont regular BS monitoring -re-referred to [facility] pharmacist for eval -cont statin and low-dose [...] instrumentation of the toenail - refer to hse manager - TB UTD Plantar callus 08/26/2024 01/27/2025 [...] Date Type Department Care Team Description 11/08/2025 Telephone [facility] [place] [address] Linda Murphy DO Error (VOID this visit) 10/27/2025 Refill [facility] [place] [address] Linda Murphy DO 10/22/2025 Orders Only GENERIC EXTERNAL DATA DEPARTMENT Provider, Generic External Data 10/18/2025 11:45 AM EST Office Visit [facility] [place] [address] Linda Murphy DO Diarrhea, unspecified type (Primary Dx); Anxiety 10/18/2025 Travel 10/17/[address] [place] [phone] Linda Murphy DO 10/14/2025 8:40 AM EST Office Visit [facility] [address] [place] [address] [place] [phone] Baldo Benitez MD Septic shock due to urinary tract infection (HCC) (Primary Dx); Acute kidney injury; Edema of right foot 10/14/2025 Results Follow-Up [facility] [address] [place] [phone] Baldo Benitez MD US VENOUS DUPLEX LE RT 10/14/2025 [facility] [address] [place] [phone] Baldo Benitez MD CBC auto differential, Comprehensive Metabolic Panel 10/14/2025 Orders Only [address] [address] Baldo Benitez MD 10/14/2025 Travel 10/12/2025 Patient Outreach [address] [place] [phone] Linda Murphy DO Transition Of Care (Tcm) (HDF- scheduled) 10/12/[address] [place] [phone] Linda Murphy DO Hospital Follow-up 10/04/2025 Results Follow-Up [address] [place] [phone] Asuncion Bailey MD CBC auto differential, Lactic Acid, Comprehensive Metabolic Panel, Additional followed-up results: 5 10/01/2025 9:00 AM EST Office Visit [address] [place] [phone] Linda Murphy DO Pyelonephritis (Primary Dx); Type 2 diabetes mellitus without complication, without long-term current use of insulin (HCC) 10/01/2025 Orders Only GENERIC EXTERNAL DATA DEPARTMENT Provider, Generic External Data 10/01/2025 Travel 09/29/2025 Orders Only [facility] [place] [address] Asuncion Bailey MD 09/28/2025 Telephone [facility] [place] [address] Linda Murphy DO Chart Prep 09/26/2025 Refill [facility] [place] [address] Linda Murphy DO Type 2 diabetes mellitus without complications (HCC) 09/20/2025 11:30 AM EST Office Visit [facility] [place] [address] Asuncion Bailey MD Pyelonephritis (Primary Dx); Nausea and vomiting, unspecified vomiting type; Leukocytosis, unspecified type; Multinodular goiter; Non-small cell cancer of left lung (CMS/HCC) (HCC) 09/20/2025 Travel 09/17/2025 Telephone [facility] [place] [address] Linda Murphy DO Prior Authorization ([facility] PA: Asmanex HFA 100 MCG) 09/17/2025 Telephone [facility] [place] [address] Linda Murphy DO Prior Authorization ([facility] PA: Spiriva HandiHaler) 09/16/2025 Orders Only GENERIC EXTERNAL DATA DEPARTMENT Provider, Generic External Data 09/15/2025 Telephone [facility] [place] [address] Yaima Marquez RN Error (VOID this visit) 09/15/2025 Orders Only GENERIC EXTERNAL DATA DEPARTMENT Provider, Generic External Data 09/02/2025 Refill [facility] [place], [place] [phone] Linda Murphy DO Type 2 diabetes mellitus without complication, without long-term current use of insulin (HCC) 08/30/2025 Refill [facility] [place] [address] Linda Murphy DO Type 2 diabetes mellitus without complication, without long-term current use of insulin (HCC) 08/18/2025 Telephone [facility] [address] [place] [address] No Lopez, KRYSTYNA [employer]PERATOR RV today; Pt does not want to take Tramadol anymore 08/11/2025 Orders Only [facility] [address] [place] [address] Linda Murphy DO 08/09/2025 Refill [facility] [address] [place], [place] [phone] Linda Murphy, from Last 3 Months Immunizations Immunization Administration [...] 10/18/2025 12:05 PM EST Plan of Treatment Upcoming Encounters Date Type Department Care Team (Late st Contact Info) Description 11/10/2025 2:30 PM EST Office Visit [facility] [address] [place], [place] [phone] Josseline Solis MD [address] [place] [address] Health Maintenance Due Date Last Done Comments [...] 08/24/2022, Additional history exists Diabetes: Hemoglobin A1C 01/01/202610/01/2 025, 07/20/2025, 04/26/2025, Additional history exists SDOH [...] kidney disease No Elver De Oliveira Mona Weekly blood pressure task Care Plan Weekly blood pressure task No Ivan Barlow Weekly blood pressure task Care Plan Weekly blood pressure task No BarlowIvan viveros Patient has chronic kidney disease Care Plan Patient has chronic kidney disease No Barlow, Lorenanastacia Patient has chronic kidney disease Care Plan Patient has chronic kidney disease No Ivan Barlow Weekly blood pressure task Care Plan Weekly blood pressure task No Paul Pedraza [place] Weekly blood pressure task Care Plan Weekly blood pressure task No Jesus [place], [place] Patient has chronic kidney disease Care Plan Patient has chronic kidney disease No Jesus [place], [place] Patient has chronic kidney disease Care Plan Patient has chronic kidney disease No Jesus [place], [place] Weekly blood pressure task Care Plan [...] Care Plan Weekly blood pressure task No RoodhouseAstrid dhillonRobyn, [place] Patient has chronic kidney disease Care Plan [...] has chronic kidney disease No Aldair Wang Procedures Procedure Name Priority Date/Time Associated Diagnosis [...] current use of insulin (HCC) POCT GLUCOSE (CPT-37802) Routine 10/01/2025 9:09 AM EST Type 2 [...] PM EST Narrative 10/22/2025 2:47 PM EST [place] [address] CT Scan Report Signed Patient: Tisha Ruiz MR#: [id number] 61 : 1970 Acct:[id number] Age/Sex: 55 / F ADM Date: 10/22/25 Loc: HO.ED Attending Dr: Ordering Physician: Teo Mazariegos DO Date of Service: 10/22/25 Procedure(s): CT head/brain wo IV con Accession Number(s): [id number] cc: Linda Murphy DO; Teo Mazariegos DO Report Number: [id number]: Total DLP = 0.00 mGy-cm Reason for [...] by: Lexa Lei MD 10/22/2025 02:44 PM [facility] Dictated By: Lexa Lei MD Signed By: <Electronically signed by Lexa Lei MD in OV> 10/22/25 1444 DD/ 1415 TD/TT: 10/22/25 1439 Meat Clerk: Procedure Note Donotuseinterpreter, Image - 10/22/[address] [place] [address] [address] Scan Report Signed Patient: Ayanna RuiznMR#: [id number] 61 : 1970Acct:[id number] Age/Sex: 55 / FADM Date: 10/22/25 Loc: HO.ED Attending Dr: Ordering Physician: Teo Mazariegos DO Date of Service: 10/22/25 Procedure(s): CT head/brain wo IV con Accession Number(s): [id number] cc: Linda Murphy DO; Teo Mazariegos DO Report Number: [id number]: Total DLP = 0.00 mGy-cm Reason for [...] Lexa Lei MD 10/22/2025 02:44 PM EST Dictated By: Lexa Lei MD Signed By: <Electronically signed by Lexa Lei MD in OV> 10/22/25 1444 DD/ 1415 TD/TT: 10/22/25 1439 Meat Clerk: [facility] External Provider IMG CT PROCEDURES Final Result * CT Abdomen Pelvis w/o Contrast (10/22/2025 2:15 PM EST) Only the most recent of2 resultswithin the time period is included. Anatomical Region Laterality Modality Body, Pelvis, Abdomen Computed T omography 10/22/2025 2:15 PM EST Narrative 10/22/2025 3:05 PM EST [address] [address] [address] Scan Report Signed Patient: Tisha Ruiz MR#: [id number] [birth year] : 1970 Acct:[id number] Age/Sex: 55 / F ADM Date: 10/22/25 Loc: HO.ED Attending Dr: Ordering Physician: Teo Mazariegos DO Date of Service: 10/22/25 Procedure(s): CT abdomen pelvis wo IV con Accession Number(s): [id number] cc: Linda Murphy DO; Teo Mazariegos Report Number: [id number]: Total DLP = 1778.62 mGy-cm Reason for [...] by: Raulito Pillai MD 10/22/2025 03:02 PM [facility] Dictated By: Raulito Pillai MD Signed By: <Electronically signed by Raulito Pillai MD in OV> 10/22/25 1502 DD/ 1415 TD/TT: 10/22/25 1439 Meat Clerk: Procedure Note Donotuseinterpreter, Image - 10/22/[address] [address] [address] Scan Report Signed Patient: Ayanna RuizElmerSilva#: [id number] 61 : 1970Acct:[id number] Age/Sex: 55 / FADM Date: 10/22/25 Loc: HO.ED Attending Dr: Ordering Physician: Teo Mazariegos DO Date of Service: 10/22/25 Procedure(s): CT abdomen pelvis wo IV con Accession Number(s): [id number] cc: Linda Murphy DO; Teo Mazariegos Report Number: [id number]: Total DLP = 1778.62 mGy-cm Reason for [...] Raulito Pillai MD 10/22/2025 03:02 PM EST Dictated By: Raulito Pillai MD Signed By: <Electronically signed by Raulito Pillai MD in OV> 10/22/25 1502 DD/ 1415 TD/TT: 10/22/25 1439 Meat Clerk: us [facility] External Provider IMG CT PROCEDURES Final Result * XR Chest 1 View (10/22/2025 1:00 PM EST) Only the most recent of3 resultswithin the time period is included. Anatomical Region Laterality Modality Chest Radiographic Rosaura ging 10/22/2025 1:00 PM EST Narrative 10/22/2025 1:16 PM EST [address] [address] XRay Report Signed Patient: Tisha Ruiz MR#: [id number] [birth year] : 1970 Acct:[id number] Age/Sex: 55 / F ADM Date: 10/22/25 Loc: .ED Attending Dr: Ordering Physician: Sana Teague Date of Service: 10/22/25 Procedure(s): XR chest 1V Accession Number(s): [id number] cc: Sana Teague; Linda Murphy DO Reason [...] by: Franki Fulton MD 10/22/2025 01:13 PM [facility] Dictated By: Franki Dubon MD Signed By: <Electronically signed by Franki Nixon MD in OV> 10/22/25 1313 DD/ 1300 TD/TT: 10/22/25 1305 Meat Clerk: Procedure Note Donotuseinterpreter, Image - 10/22/2025 [place] [address] XRay Report Signed Patient: Ayanna RuiznMR#: [id number] 61 : 1970Acct:[id number] Age/Sex: 55 / FADM Date: 10/22/25 Loc: .ED Attending Dr: Ordering Physician: Sana Teague Date of Service: 10/22/25 Procedure(s): XR chest 1V Accession Number(s): [id number] cc: Sana Teague; Linda Murphy DO Reason [...] 10/22/25 1313 DD/ 1300 TD/TT: 10/22/25 1305 Meat Clerk: [facility] External Provider IMG XR PROCEDURES Final Result * (ABNORMAL) VENOUS BLOOD GAS (10/22/2025 12:16 PM EST) VBG pH 7.53(H) 7.32 - 7.43 [facility] Comment:METER #: [id number] additional_comment: Jas crockett VBG PCO2 26 mmHg [facility] Comment:METER #: [id number] additional_comment: Jas maloneyd VBG PO2 68 mmHg [facility] Comment:METER #: [id number] additional_comment: Jas maloneyd VBG Base Excess 1.3 mmol/L [facility] Comment:METER #: [id number] additional_comment: Jas maloneyd VBG HCO3 22 22 - 26 mmol/L [facility] Comment:METER #: [id number] additional_comment: Jas crockett O2 Sat, Kevan 94.0 % [facility] Comment:METER #: [id number] additional_comment: Jas crockett 10/22/2025 12:1 6 PM EST 10/22/2025 12:20 PM EST Generic External Data Provider LAB BLOOD ORDERAB LES Final Result [facility] [address] [place] [address] [phone] * Slide Review (10/22/2025 12:10 PM EST) Only the most recent of2 resultswithin the time period is included. Slide Review VERIFIED [facility] 10/22/2025 12:1 0 PM EST 10/22/2025 12:13 PM EST us Generic External Data Provider LAB BLOOD ORDERAB LES Final Result Performing Organization Address [facility] de Phone Number [facility] [address] [place] [address] [phone] * SARS-CoV-2 RNA, Influenza A/B, and RSV RNA, Ql NAAT (10/22/2025 12:10 PM EST) Influenza A PCR NEGATIVE Negative [facility] Influenza B PCR NEGATIVE Negative [facility] Resp Syncy Virus RNA Qual PCR NEGATIVE Negative [facility] SARS COV2 PCR NEGATIVE Negative [facility] Comment:All test results mus t [...] use by authorized laboratories.Testing performed on the Cerevo GeneXpert utilizingreal-time RT-PCR.All SARS CoV2 and positive influenza A/B results arereported to [facility]. 10/22/2025 12:1 0 PM EST 10/22/2025 12:33 PM EST us Generic External Data Provider LAB MICROBIOLOGY - GENERAL ORDERABLES Final Result Performing Organization Address [facility]/ZIP Co de Phone Number [facility] [address] [place] [address] [phone] * Procalcitonin (10/22/2025 12:10 PM EST) Procalcitonin 9.95 ng/mL [facility] Comment: Procalcitonin (PCT) Reference Range:PCT greater [...] in interpreting PCT results fromdifferent laboratories and methodologies.References:[employer]/Society of CriticalCare Medicine Consensus Conference Committee. Definitionsfor sepsis and organ failure and guidelines for the use ofinnovative therapies in sepsis. Crit Care Hck2759;20(6):864-874.Baptiste B, Miller KL, Schaericer H, et al. Calcitoninprecursors are reliable markers of sepsis in a medicalintensive care unit. Crit Care Med 2000;363:600-607.Cindi S, David K, Lior C, et al. Diagnosticvalue of procalcitonin, interleukin-6 and interleukin-8 incritically ill patients admitted with suspected sepsis. AMJ Respir Crit Care Med 2001;164:396-402.[place] Food and Drug Administration. 510(k) substantialequivalence determination decision summary for [facility] PCTLIA.http://www.accessdata.fda.fov/cdrh_docs/reviews/[email or web address].pdf.Published November 2004. Accessed April 2017. 10/22/2025 12:1 0 PM EST 10/22/2025 12:13 PM EST us Generic External Data Provider LAB BLOOD ORDERAB LES Final Result [facility] [address] [place] [address] [phone] * (ABNORMAL) CBC auto differential (10/22/2025 12:10 PM EST) Only the most recent of5 resultswithin the time period is included. White Blood Count 27.0(H) 4.8 - 10.8 X10*3/uL [facility] Red Blood Count 3.13(L) 4.20 - 5.50 X10*6/uL [facility] Hemoglobin 8.2(L) 12.0 - 16.0 g/dl [facility] Hematocrit 23.9(L) 37.0 - 47.0 % [facility] Mean Corpuscular Volume 76.4(L) 80.0 - 98.0 fL [facility] Mean Corpuscular Hemoglobin 26.2(L) 27.0 - 33.0 pg [facility] Mean Corpuscular HGB Conc 34.3 31.0 - 35.0 g/dl [facility] Red Cell Distribution Width 15.9 11.0 - 16.0 % [facility] Platelet Count 440(H) 160 - 400 X10*3/uL [facility] Mean Platelet Volume 9.8 9.4 - 12.3 fL [facility] Neutrophils Percent Auto 82.1(H) 45 - 73 % [facility] Imm Gran Pct Auto 1.2(H) 0.0 - 0.4 % [facility] Lymphocytes Percent Auto 6.6(L) 20 - 40 % [facility] Monocytes Percent Auto 9.7 2 - 11 % [facility] Eosinophils Percent Auto 0.1 0 - 4 % [facility] Basophils Percent Auto 0.3 0 - 2 % [facility] NRBC Pct Auto 0.0 0.0 - 0.2 /100WBC [facility] Neutrophils Absolute Auto 22.2(H) 2.0 - 8.3 x10*3/uL [facility] Imm Gran Abs Auto 0.33(H) 0.00 - 0.03 X10*3/uL [facility] Lymphocytes Absolute Auto 1.8 1.2 - 4.9 X10*3/uL [facility] Monocytes Absolute Auto 2.6(H) 0.1 - 1.2 X10*3/uL [facility] Eosinophils Absolute Auto 0.0 0.0 - 0.4 X10*3/uL [facility] Basophils Absolute Auto 0.1 0.0 - 0.2 X10*3/uL [facility] NRBC Abs Auto 0.000 0.0 - 0.012 X10*3/uL [facility] 10/22/2025 12:1 0 PM EST 10/22/2025 12:13 PM EST Generic External Data Provider LAB BLOOD ORDERAB LES Edited Result - Final Performing Organization Address [facility] de Phone Number [facility] [address] [place] [phone] * (ABNORMAL) Magnesium (10/22/2025 12:10 PM EST) Only the most recent of3 resultswithin the time period is included. Magnesium 1.3(LL) 1.6 - 2.6 mg/dL [facility] Comment:Critical value for t est(s): MAG Results called to and readback by: MARIO Person calling: NEDRA Date: 10.22.25Time: 1237 10/22/2025 12:1 0 PM EST 10/22/2025 12:13 PM EST Generic External Data Provider LAB BLOOD ORDERAB LES Final Result Performing Organization Address [facility] de Phone Number [facility] [address] [place] [phone] * Lactic Acid (10/22/2025 12:10 PM EST) Only the most recent of2 resultswithin the time period is included. Lactic Acid 1.4 0.5 - 2.0 mmol/L [facility] 10/22/2025 12:1 0 PM EST 10/22/2025 12:13 PM EST us Generic External Data Provider LAB BLOOD ORDERAB LES Final Result Performing Organization Address City/[facility]/ZIP Co de Phone Number [facility] [address] [place] [phone] * (ABNORMAL) Creatine Kinase, Total (10/22/2025 12:10 PM EST) Pathologist [facility] Creatine Kinase Total 1,313(H) 26 - 140 U/L [facility] 10/22/2025 12:1 0 PM EST 10/22/2025 12:13 PM EST Generic External Data Provider LAB BLOOD ORDERAB LES Final Result Performing Organization Address [facility] de Phone Number [facility] [address] [place] [phone] * (ABNORMAL) Comprehensive Metabolic Panel (10/22/2025 12:10 PM EST) Only the most recent of4 resultswithin the time period is included. Pathologist [facility] Sodium 129(L) 135 - 145 mmol/L [facility] [facility] Potassium 3.7 3.3 - 5.1 mmol/L [facility] Chloride 92(L) 96 - 108 mmol/L [facility] Carbon Dioxide 21(L) 22 - 29 mmol/L [facility] Anion Gap 20 12 - 20 [facility] Urea Nitrogen (BUN) 49(H) 9 - 16 mg/dL [facility] Creatinine, Serum 4.59(HH) 0.5 - 1.4 mg/dL [facility] Comment:Critical value for t est(s): CREA Results called to and readback by: MARIO Person calling: NEDRA Date: 10.22.25Time: 1237 Creatinine Clr Calc Pharmacy 16.9 [facility] Comment:Provided height and weight: 170.18 cm,96.6 kg.eGFR (calculated from the MDRD study equation) and eCrCl(calculated from the Cockcroft-Gault equation) are based ondifferent parameters and may not yield comparable results.If eCrCl result is absurd, please check patient'sheight/weight. Estimated Glomerular Filt Rate 10 [facility] Comment:Chronic Kidney Disea se: Estimated GFR < 60 mL/min/1.09r1Sjqvqi Kidney Disease: Estimated GFR < 15 mL/min/1.73m2 Glucose 185(H) 60 - 115 mg/dL [facility] Calcium 8.4 8.4 - 10.2 mg/dL [facility] Bilirubin, Total 0.4 0.0 - 1.0 mg/dL [facility] Aspartate Amino Transferase 70(H) 5 - 31 U/L [facility] Alanine Aminotransferase 25 0 - 31 U/L [facility] Total Protein 7.4 6.5 - 8.0 g/dL [facility] Albumin Level 3.6 3.5 - 5.0 g/dL [facility] Alkaline Phosphatase 128(H) 39 - 117 U/L [facility] 10/22/2025 12:1 0 PM EST 10/22/2025 12:13 PM EST us Generic External Data Provider LAB BLOOD ORDERAB LES Final Result Performing Organization Address City/State/[facility] Co de Phone Number [facility] [address] [place] [address] [phone] * US VENOUS DUPLEX LE RT (10/14/2025 10:37 AM EST) Anatomical Region Laterality Modality Abdomen Ultrasound 10/14/2025 10:3 7 AM EST Narrative 10/14/2025 11:13 AM EST [address] [address] Ultrasound Report Signed Patient: Tisha Ruiz MR#: [id number] [birth year] : 1970 Acct:[id number] Age/Sex: 55 / F ADM Date: 10/14/25 Loc: HO.US Attending Dr: Baldo Benitez MD Ordering Physician: Baldo Benitez MD Date of Service: 10/14/25 Procedure(s): US venous duplex LE RT Accession Number(s): [id number] cc: Linda Murphy DO; Baldo Benitez MD [...] 10/14/25 1111 DD/ 1037 TD/TT: 10/14/25 1059 Meat Clerk: Procedure Note Donotuseinterpreter, Image - 10/14/2025 [place] [address] Ultrasound Report Signed Patient: Ayanna RuiznMSilva#: [id number] [birth year] : 1970Acct:[id number] Age/Sex: 55 / FADM Date: 10/14/25 Loc: .US Attending Dr: Baldo Benitez MD Ordering Physician: Baldo Benitez MD Date of Service: 10/14/25 Procedure(s): US venous duplex LE RT Accession Number(s): [id number] cc: Linda Murphy DO; Baldo Benitez MD [...] 10/14/25 1111 DD/ 1037 TD/TT: 10/14/25 1059 Meat Clerk: us Baldo Benitez MD [facility] [place] US PROCEDURES Edited Result - Final * CT Abdomen Pelvis w/ Contrast (10/08/2025 1:34 PM EST) Only the most recent of2 resultswithin the time period is included. Anatomical Region Laterality Modality Body, Pelvis, Abdomen Computed T omography 10/08/2025 1:34 PM EST Narrative 10/08/2025 2:05 PM EST [place] [address] CT Scan Report Signed Patient: Tisha Ruiz MR#: [id number] [birth year] : 1970 Acct:[id number] Age/Sex: 55 / F ADM Date: 10/01/25 Loc: [facility] 484-[address]: Mindy Garay MD Ordering Physician: Mindy Garay MD Date of Service: 10/08/25 Procedure(s): CT abdomen pelvis w IV con Accession Number(s): [id number] cc: Mindy Garay MD; Linda Murphy DO Report Number: [id number]: Total DLP = 595.00 mGy-cm Reason for [...] by: Dillon Botello MD 10/08/2025 02:02 PM [facility] Dictated By: Dillon Botello MD Signed By: <Electronically signed by Dillon Botello MD in OV> 10/08/25 1402 DD/ 1334 TD/TT: 10/08/25 1347 Meat Clerk: Procedure Note Donotuseinterpreter, Image - 10/08/[address] [place] [address] [address] Scan Report Signed Patient: Ayanna RuizNCR#: [id number] 61 : 1970Acct:[id number] Age/Sex: 55 / FADM Date: 10/01/25 Loc: [facility] 484-[address]: Mindy Garay MD Ordering Physician: Mindy Garay MD Date of Service: 10/08/25 Procedure(s): CT abdomen pelvis w IV con Accession Number(s): [id number] cc: Mindy Garay MD; Linda Murphy DO Report Number: [id number]: Total DLP = 595.00 mGy-cm Reason for [...] 10/08/25 1402 DD/ 1334 TD/TT: 10/08/25 1347 Meat Clerk: [facility] External Provider IMG CT PROCEDURES Final Result * CT drain peritoneum (10/04/2025 1:04 PM EST) Anatomical Region Laterality Modality Body Computed Tomogra phy 10/04/2025 1:04 PM EST Narrative 10/04/2025 5:10 PM EST [place] [address] CT Scan Report Signed Patient: Tisha Ruiz MR#: [id number] [birth year] : 1970 Acct:[id number] Age/Sex: 55 / F ADM Date: 10/01/25 Loc: .ICU 261-[address]: Emy Ro MD Ordering Physician: Rex Rutledge MD Date of Service: 10/04/25 Procedure(s): CT drain peritoneum Accession Number(s): [id number] cc: Jurcsak,Rex Lundy MD Report Number: [id number]: Total DLP = 215.00 mGy-cm Reason for [...] obtained. Over an 018 wire, a 6 Russian dilator was positioned in the collection. Over an 035 guidewire, 6 Russian dilator was exchanged for an 8.5 Russian drainage catheter. Catheter was attached to external [...] by: Naomy Alan MD 10/04/2025 05:07 PM [facility] Dictated By: Naomy Alan MD Signed By: <Electronically signed by Naoym Alan MD in OV> 10/04/25 1707 DD/ 1304 TD/TT: 10/04/25 1519 Meat Clerk: SALVADOR Procedure Note Donotuseinterpreter, Image - 10/05/[address] [place] [address] [address] Scan Report Signed Patient: Ayanna RuiznMR#: [id number] 59 : 1970Acct:[id number] Age/Sex: 55 / FADM Date: 10/01/25 Loc: .[facility] 261-[address]: Emy Ro MD Ordering Physician: Rex Rutledge MD Date of Service: 10/04/25 Procedure(s): CT drain peritoneum Accession Number(s): [id number] cc: Linda Murphy DO; Rex Rutledge MD Report Number: [id number]: Total DLP = 215.00 mGy-cm Reason for [...] obtained. Over an 018 wire, a 6 Russian dilator was positioned in the collection. Over an 035 guidewire, 6 Russian dilator was exchanged for an 8.5 Russian drainage catheter. Catheter was attached to external [...] by: Naomy Alan MD 10/04/2025 05:07 PM EST Dictated By: Naomy Alan MD Signed By: <Electronically signed by Naomy Alan MD in OV> 10/04/25 1707 DD/ 1304 TD/TT: 10/04/25 1519 Meat Clerk: SALVADOR [facility] External Provider IMG CT PROCEDURES Final Result * MR Abdomen w/ and w/o Contrast (10/03/2025 6:45 PM EST) Anatomical Region Laterality Modality Abdomen Magnetic Resonan ce 10/03/2025 6:45 PM EST Narrative 10/03/2025 6:47 PM EST [address] [address] Magnetic Resonance Report Signed Patient: Tisha Ruiz MR#: [id number] [birth year] : 1970 Acct:[id number] Age/Sex: 55 / F ADM Date: 10/01/25 Loc: .ICU 261-[address]: Emy Ro MD Ordering Physician: Emy Ro MD Date of Service: 10/03/25 Procedure(s): MR abdomen wo/w con Accession Number(s): [id number] cc: Linda Murphy DO; Emy Ro MD [...] PELVIC AND TRANSVAGINAL - 10/01/25 19:[address]/MT/SR - CT ABDOMEN PELVIS WITHOUT IV CONTRAST [...] effusion. Infection can not be excluded. 2. Xnlxr-xuxsblf-mhpv-left hydronephrosis and ureteral dilatation. 3. Presumably reactive retroperitoneal lymph nodes. Continued follow up is recommended to exclude underlying malignancy. This document has been electronically signed by: Abdirahman Hogue MD on 10/03/2025 18:45:14 Dictated By: Abdirahman Hogue MD Signed By: <Electronically signed by Abdirahman Hogue MD in OV> 10/03/251845 DD/ 44 TD/TT: 10/03/251844 Meat Clerk: Procedure Note Donotuseinterpreter, Image - 10/03/[address] [address] Magnetic Resonance Report Signed Patient: Ayanna RuiznMR#: [id number] 59 : 1970Acct:[id number] Age/Sex: 55 / FADM Date: 10/01/25 Loc: HO.ICU 261-[address]: Emy Ro MD Ordering Physician: Emy Ro MD Date of Service: 10/03/25 Procedure(s): MR abdomen wo/w con Accession Number(s): [id number] cc: Linda Murphy DO; Emy Ro MD [...] PELVIC AND TRANSVAGINAL - 10/01/25 19:[address]/MT/SR - CT ABDOMEN PELVIS WITHOUT IV CONTRAST [...] nodes are present. Adnexal and pouch of Poteet abnormalities are partially visualized, which are discussed on the accompanying pelvic MRI report. Visualized osseous structures are normal in appearance. IMPRESSION: 1. Loculated left pleural effusion. Infection can not be excluded. 2. Ksgvp-zqrakid-xuoa-left hydronephrosis and ureteral dilatation. 3. Presumably reactive retroperitoneal lymph nodes. Continued follow up is recommended to exclude underlying malignancy. This document has been electronically signed by: Abdirahman Hogue MD on 10/03/2025 18:45:14 Dictated By: Abdirahman Hogue MD Signed By: <Electronically signed by Abdirahman Hogue MD in OV> 10/03/251845 DD/ 44 TD/TT: 10/03/251844 Meat Clerk: [facility] External Provider IMG MRI PROCEDURES Final Result * MR Pelvis w/ and w/o Contrast (10/03/2025 6:42 PM EST) Anatomical Region Laterality Modality Body, Pelvis Magnetic Resonan ce 10/03/2025 6:42 PM EST Narrative 10/03/2025 6:44 PM EST [place] [address] Magnetic Resonance Report Signed Patient: Tisha Ruiz MR#: [id number] [birth year] : 1970 Acct:[id number] Age/Sex: 55 / F ADM Date: 10/01/25 Loc: .[facility] 261-[address]: Emy Ro MD Ordering Physician: Emy Ro MD Date of Service: 10/03/25 Procedure(s): MR pelvis wo/w con Accession Number(s): [id number] cc: Linda Murphy DO; Emy Ro MD Reason for Exam: L Adnexal Mass and Ileus CLINICAL HISTORY: L Adnexal Mass and Ileus MRI of the pelvis with and without intravenous contrast. Comparison: US/SR - US PELVIC AND TRANSVAGINAL - 10/02/25 07:45 EST US - US PELVIC AND TRANSVAGINAL - 10/01/25 19:[address]/MT/SR - CT ABDOMEN PELVIS WITHOUT IV CONTRAST [...] structures are normal in appearance. IMPRESSION: 1. Ykol-lnjpfex-jvbe-right adnexal lesions as described above, most suggestive of tubo-ovarian abscesses. Continued follow up is recommended to exclude underlying neoplasm. 2. Probable abscess within the pouch of Poteet, Associated with secondary thickening of the rectum. Follow-up endoscopy is recommended to exclude underlying rectal neoplasm. 3. Vynna-ldykbth-ckin-left hydronephrosis secondary to distal ureteral compression. This document has been electronically signed by: Abdirahman Hogue MD on 10/03/2025 18:42:57 Dictated By: Abdirahman Hogue MD Signed By: <Electronically signed by Abdirahman Hogue MD in OV> 10/03/251842 DD/ 41 TD/TT: 10/03/251841 Meat Clerk: Procedure Note Donotuseinterpreter, Image - 10/03/2025 [place] [address] Magnetic Resonance Report Signed Patient: Asmita Ruiz#: [id number] [birth year] : 1970Acct:[id number] Age/Sex: 55 / FADM Date: 10/01/25 Loc: .[facility] 261-[address]: Emy Ro MD Ordering Physician: Emy Ro MD Date of Service: 10/03/25 Procedure(s): MR pelvis wo/w con Accession Number(s): [id number] cc: Linda Murphy DO; Emy Ro MD Reason for Exam: L Adnexal Mass and Ileus CLINICAL HISTORY: L Adnexal Mass and Ileus MRI of the pelvis with and without intravenous contrast. Comparison: US/SR - US PELVIC AND TRANSVAGINAL - 10/02/25 07:45 EST US - US PELVIC AND TRANSVAGINAL - 10/01/25 19:[address]/MT/SR - CT ABDOMEN PELVIS WITHOUT IV CONTRAST [...] structures are normal in appearance. IMPRESSION: 1. Wvmb-pjlwyvq-aylp-right adnexal lesions as described above, most suggestive of tubo-ovarian abscesses. Continued follow up is recommended to exclude underlying neoplasm. 2. Probable abscess within the pouch of Angel, Associated with secondary thickening of the rectum. Follow-up endoscopy is recommended to exclude underlying rectal neoplasm. 3. Dgvwu-icajafg-unnu-left hydronephrosis secondary to distal ureteral compression. This document has been electronically signed by: Abdirahman Hogue MD on 10/03/2025 18:42:57 Dictated By: Abdirahman Hogue MD Signed By: <Electronically signed by Abdirahman Hogue MD in OV> 10/03/251842 DD/ 41 TD/TT: 10/03/251841 Meat Clerk: [facility] External Provider IMG MRI PROCEDURES Final Result * US Pelvis Transvaginal (10/02/2025 11:15 AM EST) Only the most recent of2 resultswithin the time period is included. Anatomical Region Laterality Modality Pelvis Ultrasound 10/02/2025 11:1 5 AM EST Narrative 10/02/2025 11:16 AM EST [place] [address] Ultrasound Report Signed Patient: Tisha Ruiz MR#: [id number] 59 : 1970 Acct:[id number] Age/Sex: 55 / F ADM Date: 10/01/25 Loc: [facility] 261-[address]: Emy Ro MD Ordering Physician: Earline Luu NP Date of Service: 10/02/25 Procedure(s): US pelvic and transvaginal Accession Number(s): [id number] cc: Linda Murphy DO; Earline Luu NP [...] 10/02/25 1116 DD/ 1115 TD/TT: 10/02/25 1115 Meat Clerk: Procedure Note Donotuseinterpreter, Image - 10/02/2025 [place] [address] Ultrasound Report Signed Patient: Ayanna RuiznMR#: [id number] 61 : 1970Acct:[id number] Age/Sex: 55 / FADM Date: 10/01/25 Loc: [facility] 261-[address]: Emy Ro MD Ordering Physician: Earline Luu NP Date of Service: 10/02/25 Procedure(s): US pelvic and transvaginal Accession Number(s): [id number] cc: Linda Murphy DO; Earline Luu NP [...] in OV> 10/02/25 1116 DD/ 111 TD/TT: 10/02/251114 Meat Clerk: us [facility] External Provider IMG US PROCEDURES Edited Result - Final * (ABNORMAL) Urinalysis, Complete, with Reflex to Culture (10/01/2025 1:26 PM EST) Only the most recent of2 resultswithin the time period is included. Color Urine Yellow [facility] Appearance Urine Hazy [facility] PH 5.5 5.0 - 9.0 [facility] Glucose Urine UA Negative Negative mg/dL [facility] Urine Blood Negative Negative [facility] Specific [place] - Urine 1.015 1.005 - 1.025 [facility] Urine Protein Trace Neg-Trace mg/dL [facility] Urine Ketones Negative Negative mg/dL [facility] Nitrite Urine Negative Negative [facility] Leukocyte Esterase Urine Moderate (2+)(A) Negative [facility] RBC Urine 0-2 0 - 2 /HPF [facility] Urine WBC >50(A) 0 - 5 /HPF [facility] Urine Squamous Epithelial Cell 11-20 0 - 2 /HPF [facility] Urine Bacteria 4+ None Seen [facility] Hyaline Casts, Urine >20 0 - 2 /LPF [facility] 10/01/2025 1:26 PM EST 10/01/2025 1:28 PM EST Narrative [facility] - 10/01/2025 1:55 PM EST Urine, Clean Catch us Generic External Data Provider LAB URINE ORDERAB LES Final Result [facility] [address] [place] [phone] * (ABNORMAL) Complete Blood Count Manual Diff (10/01/2025 10:48 AM EST) White Blood Count 23.9(H) 4.8 - 10.8 X10*3/uL [facility] Red Blood Count 4.01(L) 4.20 - 5.50 X10*6/uL [facility] Hemoglobin 10.6(L) 12.0 - 16.0 g/dl [facility] Hematocrit 31.8(L) 37.0 - 47.0 % [facility] Mean Corpuscular Volume 79.3(L) 80.0 - 98.0 fL [facility] Mean Corpuscular Hemoglobin 26.4(L) 27.0 - 33.0 pg [facility] Mean Corpuscular HGB Conc 33.3 31.0 - 35.0 g/dl [facility] Red Cell Distribution Width 14.6 11.0 - 16.0 % [facility] Platelet Count 356 160 - 400 X10*3/uL [facility] Mean Platelet Volume 9.5 9.4 - 12.3 fL [facility] NRBC Pct Auto 0.0 0.0 - 0.2 /100WBC [facility] NRBC Abs Auto 0.000 0.0 - 0.012 X10*3/uL [facility] Neutrophils % Manual 82(H) 45 - 73 % [facility] Band Neutrophils Percent 0(L) 3 - 5 % [facility] Lymphocytes Percent Manual 9(L) 20 - 40 % [facility] Atypical Lymphs Percent Manual 1 0 - 6 % [facility] Monocytes Percent Manual 7 2 - 11 % [facility] BASOPHILS % MANUAL 1 0 - 2 % [facility] NEUTROPHILS ABSOLUTE MANUAL 19.6(H) 2.0 - 8.3 X10*3/uL [facility] LYMPHOCYTES ABSOLUTE MANUAL 2.2 1.2 - 4.9 X10*3/uL [facility] Atypical Lymph Absolute Manual 0.2 x10*3/uL [facility] MONOCYTES ABSOLUTE MANUAL 1.7(H) 0.1 - 1.2 X10*3/uL [facility] BASOPHILS ABSOLUTE MANUAL 0.2 0.0 - 0.2 X10*3/uL [facility] Platelet Estimate NORMAL NORMAL [facility] Large Platelet PRESENT [facility] Platelet Morphology Comment NOTED [facility] RBC Morphology NOTED [facility] Tear Drop Cells 1+ (0-2) /OIF [facility] Toxic Vacuolation PRESENT [facility] [employer] Cells 1+ (0-2) /OIF [facility] 10/01/2025 10:4 8 AM EST 10/01/2025 10:53 AM EST us Generic External Data Provider LAB BLOOD ORDERAB LES Final Result Performing Organization Address City/[facility]/ZIP Co de Phone Number [facility] [address] [place] [phone] * Beta-Hydroxybutyrate (10/01/2025 10:48 AM EST) [facility] Beta-Hydroxybut yrate 0.11 0.02 - 0.27 mmol/L [facility] 10/01/2025 10:4 8 AM EST 10/01/2025 10:53 AM EST us Generic External Data Provider LAB BLOOD ORDERAB LES Final Result Performing Organization Address [facility] Co de Phone Number [facility] [address] [place] [phone] * hCG, Total, Quantitative (10/01/2025 10:48 AM EST) Pathologist [facility] HCG Quantitative <2 mIU/mL [facility] Comment:Weeks post LMP Appr oximate hCG(Last Menstrual Period) Range (mIU/ml)3 - 4 weeks 9 - 1304 - 5 weeks 75 - 2,6005 - 6 weeks 850 - 20,8006 - 7 weeks 4000 - 100,2007 - 12 weeks 11,500 - 289,07571 - 16 weeks 18,300 - 137,94868 - 29 weeks (2nd trimester) 1,400 - 53,23228 - 41 weeks (3rd trimester) 940 - [...] ORDERAB LES Final Result Performing Organization Address City/[facility]/ZIP Co de Phone Number [facility] [address] [place] [phone] * Lipase (10/01/2025 10:48 AM EST) Only the most recent of2 resultswithin the time period is included. Pathologist [facility] Lipase 16 8 - 78 U/L [facility] 10/01/2025 10:4 8 AM EST 10/01/2025 10:53 AM EST Generic External Data Provider LAB BLOOD ORDERAB LES Final Result Performing Organization Address [facility]/ZIP Co de Phone Number [facility] [address] [place] [phone] * (ABNORMAL) POCT Hgb A1c (10/01/2025 9:13 AM EST) [facility] Hemoglobin A1C 8.7(A) 4.0 - 5.7 % QC Media Lot # [id number] Lot# Expiration Date [id number] Blood 10/01/2025 9:13 AM EST Linda Murphy DO POINT OF CARE TEST ENTER/JAME T ORDERABLES Final Result * (ABNORMAL) POCT Glucose (10/01/2025 9:09 AM EST) Glucose Blood, POC 303(A) 60 - 200 mg/dL [employer] Lot # [id number] Lot# Expiration Date [id number] Blood Capillary blood specimen / Unknown 10/01/2025 9:09 AM EST Linda Murphy DO POINT OF CARE TEST ENTER/JAME T ORDERABLES Final Result * (ABNORMAL) TSH with Reflex to Free T4 (09/29/2025 8:38 AM EST) Pathologist [facility] TSH reflex Free T4 42.32(H) 0.32 - 4.0 uIU/mL [facility] Blood 09/29/2025 8:38 AM EST 09/29/2025 8:38 AM EST Asuncion Bailey MD LAB BLOOD ORDERABLES Fin al Result [facility] [address] [place] [address] [phone] * (ABNORMAL) Alkaline phosphatase, isoenzymes (09/29/2025 8:38 AM EST) Pathologist [facility] Alkaline Phosphatase 112 37 - 153 U/L [facility] Intestinal Isoenzymes 0(A) 1 - 24 % [facility] Bone Isoenzymes 32 28 - 66 % [facility] Liver Isoenzymes 68 25 - 69 % [facility] Placental Isoenzymes 0 <=0 % [facility] Macrohepatic Isoenzymes 0 <=0 % [facility] Comment:THIS TEST WAS PERFOR MED AT:[employer]/[facility] [place] [address]XKEVYVLARTURO ROJAS MD,PHD Interpretation TNP [facility] Blood Venous blood specimen / Unknown 09/29/2025 8:38 AM EST 09/29/2025 8:38 AM EST Asuncion Bailey MD LAB BLOOD ORDERABLES Fin al Result Performing Organization Address [facility] Co de Phone Number [facility] [address] [place] [phone] * (ABNORMAL) TSH (09/29/2025 8:38 AM EST) Only the most recent of2 resultswithin the time period is included. Thyroid Stimulating Hormone 42.32(H) 0.32 - 4.0 uIU/mL [facility] Comment:Note: A sustained TS H level above 2.5 uIU/mL may warrant further investigation. TSH 3rd Generation ([facility]) 09/29/2025 8:38 AM EST 09/29/2025 8:38 AM EST us Generic External Data Provider LAB BLOOD ORDERAB LES Final Result Performing Organization Address [facility] Phone Number [facility] [address] [place] [phone] * T4, Free (09/29/2025 8:38 AM EST) Only the most recent of2 resultswithin the time period is included. Free T4 (Free Thyroxine) 0.85 0.71 - 1.85 ng/dL [facility] 09/29/2025 8:38 AM EST 09/29/2025 8:38 AM EST us Generic External Data Provider LAB BLOOD ORDERAB LES Final Result Performing Organization Address [facility] Co de Phone Number [facility] [address] [place] [phone] * Amylase (09/29/2025 8:38 AM EST) Amylase 43 28 - 100 U/L [facility] Blood Venous blood specimen / Unknown 09/29/2025 8:38 AM EST 09/29/2025 8:38 AM EST us Asuncion Bailey MD LAB BLOOD ORDERABLES Fin al Result Performing Organization Address City/State/[facility] Co de Phone Number [facility] [address] [place] [phone] * XR Chest 2 Views (09/29/2025 8:14 AM EST) Only the most recent of2 resultswithin the time period is included. Anatomical Region Laterality Modality Chest Radiographic Rosaura ging 09/29/2025 8:14 AM EST Narrative 09/29/2025 8:37 AM EST [address] [address] XRay Report Signed Patient: Tisha Ruiz MR#: [id number] 59 : 1970 Acct:[id number] Age/Sex: 55 / F ADM Date: 09/29/25 Loc: HO.BESTAY Attending Dr: Asuncion Bailey MD Ordering Physician: Asuncion Bailey MD Date of Service: 09/29/25 Procedure(s): XR chest 2V Accession Number(s): [id number] cc: Asuncion Bailey MD Reason for Exam: [...] in OV> 09/29/2534 DD/ 3 TD/TT: 09/29/25825 Meat Clerk: Procedure Note Donotuseinterpreter, Image - 09/29/[address] [address] XRay Report Signed Patient: Ayanna RuizNCR#: [id number] 61 : 1970Acct:[id number] Age/Sex: 55 / FADM Date: 09/29/25 Loc: HO.XRAY Attending Dr: Asuncion Bailey MD Ordering Physician: Asuncion Bailey MD Date of Service: 09/29/25 Procedure(s): XR chest 2V Accession Number(s): [id number] cc: Asuncion Bailey MD Reason for Exam: [...] MDin OV> 09/29/2534 DD/ 3 TD/TT: 09/29/25825 Meat Clerk: Asuncion Bailey MD IMG XR PROCEDURES Edited Result - Final * Culture, Urine, Routine (09/21/2025 1:00 AM EST) Only the most recent of2 resultswithin the time period is included. Urine Urine specimen obtained by clean catch procedure / Unknown 09/21/2025 1:00 AM EST 09/21/2025 11:13 AM EST Comment:UACC Narrative [facility] - 09/23/2025 7:30 AM EST Escherichia coli Quant 50,000 to 100,000 cfu/mL Escherichia coli: Ampicillin >=32(R) Escherichia coli: Cefazolin (Urine) 2(S) Escherichia coli: Cefepime <=0.12(S) Escherichia coli: Ceftriaxone <=0.25(S) Escherichia coli: Ciprofloxacin <=0.06(S) Escherichia coli: Gentamicin <=1(S) Escherichia coli: Nitrofurantoin 32(S) Escherichia coli: Trimethoprim/Sulfamethoxazole <=20(S) Specimen Source: Urine clean catch Asuncion Bailey MD LAB MICROBIOLOGY - [employer] [facility] [employer] AL ORDERABLES Final Result [facility] [address] [place] [address] [phone] * POCT Urinalysis (09/20/2025 12:00 PM [...] Media Lot # [id number] Lot# Expiration Date 635 Urine (Urine, Random) 09/20/2025 12:00 PM EST Asuncion Bailey MD POINT OF CARE TEST ENTER /EDIT ORDERABLES Final Result * Hepatic Function Panel (09/16/2025 9:34 AM EST) Bilirubin, Direct 0.1 0.0 - 0.5 mg/dL [facility] 09/16/2025 9:34 AM EST 09/16/2025 9:39 AM EST us Generic External Data Provider LAB BLOOD ORDERAB LES Final Result Performing Organization Address City/[facility]/ZIP Co de Phone Number [facility] [address] [place] [phone] * (ABNORMAL) Glucose, Whole Blood (09/16/2025 9:15 AM EST) Glucose, Whole Blood 333(H) 60 - 115 mg/dL [facility] Comment:METER #: [id number] 09/16/2025 9:15 AM EST 09/16/2025 9:19 AM EST Generic External Data Provider LAB BLOOD ORDERAB LES Final Result Performing Organization Address [facility] Co de Phone Number [facility] [address] [place] [phone] * (ABNORMAL) Thyroglobulin, LC/MS/MS (09/15/2025 11:17 AM EST) [facility] Thyroglobulin, LC/MS/MS 0.2(A) ng/mL [facility] Comment:Reference Range: Int act Thyroid 2.8-40.9 Athyrotic <0.1 Note: Abnormal flagging is based on the reference interval for patients with intact thyroid.This test was performed using the Johny Coulterchemiluminescent method. Values obtained fromdifferent assay methods cannot be usedinterchangeably. Thyroglobulin levels, regardlessof value, should not be interpreted as absoluteevidence of the presence or absence of disease. Thyroglobulin Comment See Below [facility] Comment:Thyroglobulin antibo dies (TGAB) interfere withthyroglobulin (TG) assays; therefore, TGAB assayshould always be performed in conjunction with aTG assay.For additional information, please refer tohttp://education.Atempo/faq/ZNU181(This link is being provided for informational/educational purposes only.)THIS TEST WAS PERFORMED AT:[facility] [place] [phone] DUARNT MD 09/15/2025 11:1 7 AM EST 09/15/2025 11:17 AM EST Generic External Data Provider LAB BLOOD ORDERAB LES Final Result Performing Organization Address [facility]/ZIP Co de Phone Number [facility] [address] [place] [phone] * (ABNORMAL) Thyroblobulin, Tumor Marker w/Reflex (09/15/2025 11:17 AM EST) Thyroglobulin Antibody <1 <=1 IU/mL [facility] Comment:This Thyroglobulin a ntibody test was performedusing the EATON Chemiluminescent method.Values obtained from different assay methods cannot beused interchangeably. Thyroglobulin antibody levels,regardless of value, should not be interpreted asabsolute evidence of the presence or absence ofdisease. Thyroglobulin, LC/MS/MS TNP [facility] Thyroglobulin Level 0.1(A) ng/mL [facility] Comment:Reference Range: Ath yrotic: <0.1 ng/mLReference range applies to differentiated thyroidcancer patients following treatment. The presence ofmeasurable thyroglobulin indicates the presence ofthyroglobulin-producing thyroid tissue. Clinicalcorrelation is advised.This Thyroglobulin test was performed using theEATON Chemiluminescent method. Valuesobtained from different assay methods cannot beused interchangeably. Thyroglobulin levels, regardlessof value, should not be interpreted as absoluteevidence of the presence or absence of disease.THIS TEST WAS PERFORMED AT:[id number] [place] [phone] ROJAS MD,PHD 09/15/2025 11:1 7 AM EST 09/15/2025 11:17 AM EST us Generic External Data Provider LAB BLOOD ORDERAB LES Final Result Performing Organization Address [facility]/ZIP Co de Phone Number [facility] [address] [place] [phone] * Thyroglobulin Antibodies (09/15/2025 11:17 AM EST) Thyroglobulin Antibodies <1 < or = 1 IU/mL [facility] Comment:THIS TEST WAS PERFOR MED AT:[facility] [place] [phone] DURANT MD 09/15/2025 11:1 7 AM EST 09/15/2025 11:17 AM EST us Generic External Data Provider LAB BLOOD ORDERAB LES Final Result Performing Organization Address [facility] Number [facility] [address] [place] [phone] * Albumin, Random Urine W/Creatinine (04/26/2025 11:11 AM EDT) Creatinine, Urine 52.62 mg/dL [facility] Microalbumin Urine 11.0 mg/L [facility] Microalbum Creatinine Ratio Ur 20.9 <30 ug/mg cr [facility] Comment:Albumin/Creatinine R atio Reference Ranges: Normal: < 30 ug/mg creatinine Microalbuminuria: 30 - 300 ug/mg creatinineClinical Albuminuria: > 300 ug/mg creatinine Urine (Urine, Random) 04/26/2025 11:11 AM EDT 04/26/2025 12:56 PM EDT us Linda Murphy DO LAB URINE ORDERABLES Final R esult Performing Organization Address [facility] Co de Phone Number [facility] [address] [place] [phone] * Hepatitis C Antibody with Reflex to HCV, RNA, Quantitative, Real-Time PCR (04/26/2025 11:11 AM EDT) Hepatitis C Antibody Nonreactive Nonreactive [facility] Comment:Antibodies to HCV no t detected; does not exclude early acuteHCV infection. Blood Venous blood specimen / Unknown 04/26/2025 11:11 AM EDT 04/26/2025 12:56 PM EDT Linda Katherine LAB BLOOD ORDERABLES Final R esult Performing Organization Address [facility]/ZIP Co de Phone Number [facility] [address] [place] [phone] * HIV-1/2 Antigen and Antibodies, Fourth Generation, with Reflexes (04/26/2025 11:11 AM EDT) Pathologist [facility] HIV AB/AG Nonreactive Nonreactive [facility] Comment:HIV-1 p24 Ag and/or HIV-1/HIV-2 Ab not detected.A test result that is nonreactive does not exclude thepossibility of exposure to or infection with HIV-1 and/orHIV-2. Nonreactive results in this assay for individualswith prior exposure to HIV-1 and/or HIV-2 may be due toantigen and antibody levels that are below the limit ofdetection of this assay.The Disconnect HIV Ag/Ab Combo assay result andsupplemental assay results should be interpreted inconjunction with the patient's clinical presentation,history and other laboratory results. If the results areinconsistent with clinical evidence, additional testing issuggested to confirm the result. Blood Venous blood specimen / Unknown 04/26/2025 11:11 AM EDT 04/26/2025 12:56 PM EDT us Linda Katherine LAB BLOOD ORDERABLES Final R esult Performing Organization Address [facility]/ZIP Co de Phone Number [facility] [address] [place] [phone] * (ABNORMAL) Lipid Panel, Standard (04/26/2025 11:11 AM EDT) Triglycerides 161(H) <150 mg/dL [facility] Comment:Desirable Triglyceri de: less than 150 mg/dLBorderline High Triglyceride 150-199 mg/dLHigh Triglyceride: 200-499 mg/dLVery High Triglyceride: greater than or equal to 5OO mg/dL Cholesterol 139 <200 mg/dL [facility] Comment:Desirable Cholestero l: less than 200 mg/dLBorderline High Cholesterol: 200-239 mg/dLHigh Cholesterol: greater than 239 mg/dL LDL Cholesterol Calculated 64 <100 mg/dL [facility] Comment:Desirable LDL: less than 100 mg/dLNear Optimal/Above Optimal LDL: 110- 129 mg/dLBorderline High LDL: 130-159 mg/dLHigh LDL: 160-189 mg/dLVery High LDL: greater than or equal to 190 mg/dL HDL Cholesterol 43 >40 mg/dL [facility] Comment:Desirable HDL: great er than 40 mg/dL Note: This HDL assay may give artificially low results in patients with liver disease. Blood Venous blood specimen / Unknown 04/26/2025 11:11 AM EDT 04/26/2025 12:56 PM EDT us Linda Murphy DO LAB BLOOD ORDERABLES Final R esult [facility] [address] [place] [phone] * Referral to Podiatry (03/04/2025) us Asuncion Bailey MD OUTPATIENT REFERRAL [facility] Final Result * HPV E6/E7 RFLX LUIS 16 18/45 (05/21/2022 3:45 PM EDT) HPV mRNA E6/E7 rflx Not Detected Not Detected [facility] Comment: Methodology: Numerical Control Programmer-Mediated Amplification This assay detects E6/E7 viral messenger RNA (mRNA) from 14 high-risk HPV types (16,18,31,33,35,39,45,51,52,56,58,59,66,68). Cervical sources are required for HPV testing. If a vaginal source from a patient who has had a total hysterectomy with removal of cervix was submitted, please contact the testing laboratory for alternative testing options. For additional information, please refer to http://education.Atempo/faq/EQJ599a6 (This link if provided for information/ educational purposes only.) THIS TEST WAS PERFORMED AT: [facility] [address] [place] [address],[place] [phone] VALERIA DURANT MD 05/21/2022 3:45 PM EDT us Fercho Palmer MD HISTORICAL/NON ORDERABLE LABS Fi nal Result [facility] [address] [place] [address] * Pap Smear (02/15/2022 12:00 AM EDT) Swab Linda Murphy DO LAB CYTOLOGY ORDERABLES Ce l Result Performing Organization Address [facility]/ZIP Co de Phone Number [facility] [address] [place] [address], [place] [phone] * DIGITAL BILATERAL SCREEN 1 (04/01/2019 2:56 [...] 11/08/2025 Patient has chronic kidney disease 11/08/[address] [facility] [facility] ONE CARE < 65 [employer] Care Teams [employer] Relationship Specialty Start Date End Date Linda Murphy DO [address] [place] [phone] PCP - General Family Medicine 11/24/12
--- OUTSIDE RECORDS SUMMARY | 2025-11-08 22:12 | XMS_ITS | Clinical Summary ---
Author Organization [facility] Address [address] [place] [address] Care Team Providers Care Peat Shredder Tender Name Role Phone Linda Murphy DO Primary Care Provider [phone] Allergies No known active allergies Medications semaglutide (RYBELSUS) 7 MG PO tablet Take 1 tablet (7 mg total) by mouth daily. 12/15/19 25 Active sucralfate (CARAFATE) 1 g tablet 1 tablet (1 g total) by Mouth/Oral Cavity route 4 (four) times a day. 09/17/20 25 Active vitamin with iron and folic acid ( VITAMINS) 28-0.8 MG Tab tablet Take 1 tablet by mouth daily. 01/30/20 25 Active phenazopyridine (PYRIDIUM) 100 MG tablet Take 1 tablet (100 mg total) by mouth 3 (three) times a day as needed for bladder spasms. 09/20/20 25 Active PANTOprazole (PROTONIX) 20 MG tablet Take 1 tablet (20 mg total) by mouth 2 times a day. 12/23/19 25 Active ondansetron (ZOFRAN-ODT) 4 MG disintegrating tablet Take 1 tablet (4 mg total) by mouth 3 times daily (every 8 hours) as needed for nausea or vomiting. 09/16/20 25 Active montelukast (SINGULAIR) 10 MG tablet Take 1 tablet (10 mg total) by mouth nightly. 02/02/20 25 Active metFORMIN (GLUCOPHAGE-XR) 500 MG 24 hr tablet Take 2 tablets (1,000 mg total) by mouth 2 times a day. 09/02/20 25 Active loratadine (CLARITIN) 10 MG tablet Take 1 tablet (10 mg total) by mouth every morning. 10/27/20 Active lisinopril (PRINIVIL,ZeSTRIL) 2.5 MG tablet Take 1 tablet (2.5 mg total) by mouth daily. 12/23/19 Active Levothyroxine Sodium 200 MCG/ML Solution Take 200 mcg by mouth daily. 10/01/20 Active TRUEplus Lancets 33G [facility] TEST BLOOD SUGAR UP TO TWICE DAILY 09/03/20 Active hydrOXYzine pamoate (VISTARIL) 50 MG capsule Take 1 capsule (50 mg total) by mouth 3 (three) times a day as needed. 10/18/20 Active haloperidol (HALDOL) 5 MG tablet Take 0.5 tablets (2.5 mg total) by mouth 2 (two) times a day. 10/18/20 Active FREESTYLE LITE strip 1 test strip by Other (specify) route 2 times a day. 08/31/20 Active glipiZIDE (GLUCOTROL) 5 MG tablet Take 1 tablet (5 mg total) by mouth 2 (two) times a day before meals. Active gabapentin (NEURONTIN) 600 MG tablet Take 1 tablet (600 mg total) by mouth 3 (three) times a day. 08/06/20 Active ferrous sulfate 325 (65 FE) MG EC tablet Take 1 tablet (325 mg total) by mouth daily. 08/31/20 Active diclofenac (VOLTAREN) 1 % gel Apply topically. 07/20/20 Active docusate sodium (COLACE) 100 MG capsule Take 1 capsule (100 mg total) by mouth 2 (two) times a day. 10/15/20 Active clonazePAM (KlonoPIN) 1 MG tablet Take 1 tablet (1 mg total) by mouth 2 times daily (every 12 hours) as needed for anxiety. Active buPROPion (WELLBUTRIN XL) 300 MG 24 hr tablet Take 1 tablet (300 mg total) by mouth every morning. 10/18/20 Active Blood Glucose Monitoring Suppl (FreeStyle [place] Lite) w/Device Kit USE TO TEST BLOOD SUGAR TWICE DAILY AND DIRECTED 09/15/20 Active baclofen (LIORESAL) 10 MG tablet Take 1 tablet (10 mg total) by mouth 3 (three) times a day. 10/01/20 Active atorvastatin (LIPITOR) 40 MG tablet Take 1 tablet (40 mg total) by mouth nightly. 09/27/20 Active Aspirin Low Dose 81 MG EC tablet Take 1 tablet (81 mg total) by mouth nightly. Active ascorbic acid 250 MG tablet Take 1 tablet (250 mg total) by mouth daily. 12/23/19 Active ARIPiprazole (ABILIFY) 20 MG tablet Take 1 tablet (20 mg total) by mouth daily. 10/18/20 Active Ventolin HFA 108 (90 Base) MCG/ACT inhaler Inhale 2 puffs every 4 (four) hours as needed for wheezing or shortness of breath. 06/28/20 Active ampicillin-sulbact am 3 g in sodium chloride-MBP 0.9% 100 mL IVPBIndications:Tu cleve-ovarian abscess Infuse 3 g into a venous catheter every 6 (six) hours. 11/05/20 Active levothyroxine (SYNTHROID, LEVOTHROID) 125 MCG tabletIndications: Tubo-ovarian abscess Take 2 tablets (250 mcg total) by mouth daily on an empty stomach. 60 tablet 11/06/20 026 Active acetaminophen (TYLENOL) 500 MG tabletIndications: Tubo-ovarian abscess Take 1 tablet (500 mg total) by mouth 4 times daily (every 6 hours) as needed for mild pain. 11/05/20 026 Active acetaminophen (TYLENOL) 650 MG CR tablet Take 1 tablet (650 mg total) by mouth 3 times daily (every 8 hours) as needed. 10/14/20 025 Discontin ued(Stop Taking at Discharge ) Active Problems Problem Noted Date Diagnosed Date Schizophrenia 10/23/2025 Assessment & Plan (10/25/2025 2:21 PM EST): - Resume gabapentin renally dose 300 mg 3 times daily - Continue Klonopin 1 mg twice daily as needed for anxiety - Continue home Abilify 20 mg daily, Wellbutrin 300 mg daily, Haldol 2.5 mg daily, baclofen 10 mg 3 times daily Assessment & Plan (10/23/2025 1:30 AM EST): -Continue home Abilify, bupropion, Haldol, clonazepam -If mental status does not improve consider holding these agents Primary malignant neoplasm of left lower lobe of lung 10/23/2025 Overview (10/23/2025): (Adenocarcinoma s/p LLL lobectomy 02/2025) Morbid obesity 10/23/2025 Hypertension 10/23/2025 Assessment & Plan (10/25/2025 2:21 PM EST): Has been normotensive and euglycemic. - Continue Lipitor 40 mg daily - Holding lisinopril 2.5 mg daily given MADELINE - Holding aspirin 81 mg nightly - POCT ACHS - Sliding scale Assessment & Plan (10/23/2025 1:30 AM EST): -Holding home antihypertensives in the setting of sepsis -Continue home statin Tubo-ovarian abscess 10/23/2025 Assessment & Plan (10/25/2025 2:37 PM EST): She is status post IR drainage and placement of left adnexal and presacral space drains on 10/23/2025. - OBGYN following, recommending drain study, swing saw operator onc and surgery evaluation - ID following, continue antibiotics with Zosyn - Continue to monitor WBC and fever curve - CT abdomen/pelvis with IV contrast and contrast via bilateral IR drains. 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 - OBGYN following, recommending drain study, swing saw operator onc and surgery evaluation - ID following, continue antibiotics with Zosyn - Continue to monitor WBC and fever curve - CT abdomen/pelvis with IV contrast and contrast via bilateral IR drains. 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 - OBGYN following, recommending drain study, swing saw operator onc and surgery evaluation - ID following, continue antibiotics with Zosyn - Continue to monitor WBC and fever curve - CT abdomen/pelvis with IV contrast and contrast via bilateral IR drains. 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 - Urology following Assessment & Plan (10/23/2025 2:05 AM EST): Baseline creatinine 1.01-1.29. Presented with creatinine 4.59. CT abdomen pelvis showing moderate hydronephrosis likely related to inflammatory changes. Status post Petty catheter placement urine production. Unclear etiology of MADELINE at this time, will rehydrate. Status post 3.5 L IV fluid. -Start D5 LR at 100 cc/hr -If no improvement in renal function, consider nephrology consult Anemia 10/23/2025 Assessment & Plan (10/23/2025 2:05 AM EST): Per chart review, previous hemoglobins 12, with steady decline. H/H on admission 7.0/21.6. Will consent for blood transfusion. -Follow-up cbc - Follow-up iron, ferritin, b12 - Hemoglobin goal greater than 7 - Holding chemical DVT prophylaxis, continue with SCDs Hypocalcemia 10/23/2025 Assessment & Plan (10/23/2025 2:05 AM EST): Calcium 7.8, potassium 3.2 on arrival. -Potassium chloride 40 mEq every 4 hours x 2 doses Hypokalemia 10/23/2025 Assessment & Plan (10/23/2025 2:05 AM EST): Calcium 7.8, potassium 3.2 on arrival. -Potassium chloride 40 mEq every 4 hours x 2 doses High anion gap metabolic acidosis 10/23/2025 Assessment & Plan (10/23/2025 2:05 AM EST): Lactic acid within normal limits. Unclear etiology. -Follow-up repeat BMP Ureteral obstruction 10/22/2025 Assessment & Plan (10/25/2025 2:21 PM EST): She is status post bilateral nephrostomy tube placement on 10/23/2025. - Urology following Long-term current use of opiate analgesic 2024 Vitamin D deficiency 02/11/2025 Varicose veins of right lower extremity with inf lammation 02/11/2025 Uterine fibroid 02/11/2025 Postoperative hypothyroidism 02/11/2025 Overview (10/23/2025): (some thyroid hormone malabsorption - s/p throidectomy 2020 for papillary carinoma) Assessment & Plan (10/23/2025 1:30 AM EST): -Continue home levothyroxine Non-small cell lung cancer 01/27/2025 Status post thyroidectomy 11/08/2023 Gastroesophageal reflux disease 11/08/2023 Assessment & Plan (10/23/2025 1:30 AM EST): -Continue home Pepcid Hx of papillary thyroid carcinoma 11/08/2023 Overview (10/23/2025): (Papillary carcinoma - s/p thyroidectomy 2020) Type 2 diabetes mellitus 03/16/2016 Assessment & Plan (10/25/2025 2:21 PM EST): Has been normotensive and euglycemic. - Continue Lipitor 40 mg daily - Holding lisinopril 2.5 mg daily given MADELINE - Holding aspirin 81 mg nightly - POCT ACHS - Sliding scale Assessment & Plan (10/23/2025 1:30 AM EST): -Holding home glipizide, metformin, semaglutide - Low-dose ISS Obstructive sleep apnea syndrome 11/03/2015 Assessment & Plan (10/25/2025 2:21 PM EST): On [place] 2L at baseline. Assessment & Plan (10/23/2025 2:05 AM EST): Home nocturnal 2 L nasal cannula. -Continue with home oxygen requirements Hyperlipidemia 11/03/2015 Assessment & Plan (10/25/2025 2:21 PM EST): Has been normotensive and euglycemic. - Continue Lipitor 40 mg daily - Holding lisinopril 2.5 mg daily given MADELINE - Holding aspirin 81 mg nightly - POCT ACHS - Sliding scale Assessment & Plan (10/23/2025 1:30 AM EST): -Holding home antihypertensives in the setting of sepsis -Continue home statin Chronic obstructive lung disease 11/03/2015 Assessment & Plan (10/25/2025 2:21 PM EST): On [place] 2L at baseline. Assessment & Plan (10/23/2025 2:05 AM EST): Home nocturnal 2 L nasal cannula. -Continue with home oxygen requirements Bipolar disorder 11/03/2015 Assessment & Plan (10/25/2025 2:21 PM EST): - Resume gabapentin renally dose 300 mg 3 times daily - Continue Klonopin 1 mg twice daily as needed for anxiety - Continue home Abilify 20 mg daily, Wellbutrin 300 mg daily, Haldol 2.5 mg daily, baclofen 10 mg 3 times daily Assessment & Plan (10/23/2025 1:30 AM EST): -Continue home Abilify, bupropion, Haldol, clonazepam -If mental status does not improve consider holding these agents Encounters Date Type Department Care Team Description 10/25/2025 4:13 PM EST Anesthesia Event [facility] [address] [place] [address] Dany Perry MD Edison, Amanda C, PA-C 10/25/2025 3:09 PM EST - 10/25/2025 6:22 PM EST Surgery [facility] [address] [place] [address] Eddie Alicia MD WASHOUT ABDOMINAL 10/23/2025 2:05 PM EST - 10/23/2025 3:30 PM EST Surgery [facility] Radiology [address] [facility] [place] [address] Abscess Drain (Retro) W/Guidance 10/23/2025 12:00 PM EST - 10/23/2025 1:22 PM EST Surgery [facility] Radiology [address] [place] [address], [place] [address] Bibiana Mcwilliams MD IR Inject Nephrostogram New Access-Bilat W/Guidance 10/22/2025 6:50 PM EST Ancillary Procedure [facility]iology [address] [place] [address], [place] [phone] Provider, File Room 10/22/2025 6:50 PM EST Ancillary Procedure [facility] [address] [place] [address], [place] [address] Provider, File Room 10/22/2025 6:45 PM EST Ancillary Procedure [facility] [address] [place] [address], [place] [address] Provider, File Room 10/22/2025 6:45 PM EST Ancillary Procedure [facility]iology [address] [place] [address], [place] [phone] Provider, File Room 10/22/2025 6:07 PM EST - 11/05/2025 12:50 PM EST Hospital Encounter [facility] [address] [place] [address], [place] [phone] Jatinder German MD Joseph, Kesley, MD Velamakanni, Sruti S, MD Mitchell, Ashley, MD Vergara, Cunegundo, MD Amrock, Stephen M, MD McClure, MD Ghislaine Smith Jacqueline A, DO Xu, Conway, MD Tubo-ovarian abscess (Primary Dx); Ureteral obstruction Discharge Disposition: Home with Health Care Services 10/22/2025 4:25 PM EST Ancillary Procedure [facility]iology [address] [place] [address], [place] [address] Provider, File Room 10/22/2025 4:20 PM EST Ancillary Procedure [facility] [address] [place] [address], [place] [address] Provider, File Room 10/22/2025 4:20 PM EST Ancillary Procedure [facility] [address] [place] [address] Provider, File Room 10/22/2025 4:20 PM EST Ancillary Procedure [facility] [address] [place] [address] Provider, File Room from Last 3 Months Social History Tobacco [...] any time in the past 12 m [facility], were you homeless or living in a longterm (including now)? No 10/26/2025 [facility] Utilities Answer Date Recorded In the past [...] Orientation Heterosexual (straight) 10/22 7:47 PM EST Last Filed Vital Signs Vital Sign Reading [...] Mass Index 32.62 10/22/2025 10:15 PM EST Plan of Treatment Upcoming Encounters Date Type Department Care Team (Late st Contact Info) Description 11/16/2025 1:00 PM EST Office Visit [facility] Colorectal Surgery [place] [address] [phone] Miguelina Gonsalves, MARKOS [address] [address] Health Maintenance Due Date Last Done Comments Hepatitis C Virus Screening 1972 Foot Exam 1982 Lipid Panel 1982 Ophthalmology Exam 1982 Microalbumin/Creatinine Rati o Urine 1990 DTaP/Tdap/Td Vaccines (1 - Tdap) 1991 Hepatitis B Vaccines (1 of 3 - 19+ 3-dose series) 1991 Pneumococcal Vaccines 50+ (1 of 2 - PCV) 1991 Zoster (Shingles) Vaccine (1 of 2) 1991 Pap Smear (Ages 21-65) 1993 Mammogram 2012 Colonoscopy 2017 RSV Vaccine 50 years and old er and Patients (1 - Risk 50-74 years 1-dose series) 2022 Influenza Vaccine 06/11/2025 08/26/2024, , 08/24/2022, Additional history exists COVID-19 Vaccine (2024-2 6 season) 2025 10/06/2024, 07/22/2023, 08/24/2022, Additional history exists Hemoglobin A1C 01/21/2026 10/23/2025 Creatinine with GFR 11/04/2026 11/04/2025, 11/03/2025, 11/02/2025, Additional history exists HIV Screening Completed 04/26/2025 Procedures Procedure Name Priority Date/Time Associated Diagnosis [...] FINGERSTICK (CHARGE) Routine 11/04/2025 8:29 AM EST BASIC METABOLIC PANEL Routine 11/04/2025 6:43 AM EST COMPLETE BLOOD COUNT, WITH DIFFERENTIAL Routine 11/04/2025 6:43 AM EST MAGNESIUM Routine 11/04/2025 6:43 AM EST PHOSPHORUS Routine 11/04/2025 6:43 AM EST POCT GLUCOSE, [...] FINGERSTICK (CHARGE) Routine 11/03/2025 8:22 AM EST PHOSPHORUS Routine 11/03/2025 7:35 AM EST MAGNESIUM Routine 11/03/2025 7:35 AM EST BASIC METABOLIC PANEL Routine 11/03/2025 7:35 AM EST COMPLETE BLOOD COUNT, WITHOUT DIFFERENTIAL Routine 11/03/2025 7:35 AM EST POCT GLUCOSE, FINGERSTICK (CHARGE) Routine 11/03/2025 4:12 AM EST POCT GLUCOSE, FINGERSTICK (CHARGE) Routine 11/03/2025 12:33 AM EST POCT GLUCOSE, FINGERSTICK (CHARGE) Routine 11/02/2025 8:16 PM EST POCT GLUCOSE, FINGERSTICK (CHARGE) Routine 11/02/2025 4:29 PM EST POCT GLUCOSE, FINGERSTICK (CHARGE) Routine 11/02/2025 11:53 AM EST POCT GLUCOSE, FINGERSTICK (CHARGE) Routine 11/02/2025 8:39 AM EST PHOSPHORUS Routine 11/02/2025 6:54 AM EST MAGNESIUM Routine 11/02/2025 6:54 AM EST BASIC METABOLIC PANEL Routine 11/02/2025 6:54 AM EST COMPLETE BLOOD COUNT, WITHOUT DIFFERENTIAL Routine 11/02/2025 6:54 AM EST POCT GLUCOSE, FINGERSTICK (CHARGE) Routine 11/01/2025 8:56 PM EST POCT GLUCOSE, FINGERSTICK (CHARGE) Routine 11/01/2025 5:22 PM EST POCT GLUCOSE, FINGERSTICK (CHARGE) Routine 11/01/2025 11:46 AM EST POCT GLUCOSE, FINGERSTICK (CHARGE) Routine 11/01/2025 8:17 AM EST POCT GLUCOSE, FINGERSTICK (CHARGE) Routine 11/01/2025 4:14 AM EST PHOSPHORUS Routine 11/01/2025 4:02 AM EST MAGNESIUM Routine 11/01/2025 4:02 AM EST COMPLETE BLOOD COUNT, WITHOUT DIFFERENTIAL Routine 11/01/2025 4:02 AM EST BASIC METABOLIC [...] FINGERSTICK (CHARGE) Routine 10/31/2025 7:52 AM EST BASIC METABOLIC PANEL Routine 10/31/2025 7:29 AM EST COMPLETE BLOOD COUNT, WITHOUT DIFFERENTIAL Routine 10/31/2025 7:29 AM EST MAGNESIUM Routine 10/31/2025 7:29 AM EST PHOSPHORUS Routine 10/31/2025 7:29 AM EST POCT GLUCOSE, FINGERSTICK (CHARGE) Routine 10/30/2025 8:36 PM EST POCT GLUCOSE, FINGERSTICK (CHARGE) Routine 10/30/2025 5:17 PM EST POCT GLUCOSE, FINGERSTICK (CHARGE) Routine 10/30/2025 12:31 PM EST POCT GLUCOSE, FINGERSTICK (CHARGE) Routine 10/30/2025 12:18 PM EST POCT GLUCOSE, FINGERSTICK (CHARGE) Routine 10/30/2025 8:09 AM EST PHOSPHORUS Routine 10/30/2025 7:28 AM EST MAGNESIUM Routine 10/30/2025 7:28 AM EST BASIC METABOLIC PANEL Routine 10/30/2025 7:28 AM EST COMPLETE BLOOD COUNT, WITHOUT DIFFERENTIAL Routine 10/30/2025 7:28 AM EST POCT GLUCOSE, FINGERSTICK (CHARGE) Routine 10/29/2025 9:27 PM EST POCT GLUCOSE, FINGERSTICK (CHARGE) Routine 10/29/2025 5:07 PM EST POCT GLUCOSE, FINGERSTICK (CHARGE) Routine 10/29/2025 11:53 AM EST POCT GLUCOSE, FINGERSTICK (CHARGE) Routine 10/29/2025 8:26 AM EST PHOSPHORUS Routine 10/29/2025 7:29 AM EST MAGNESIUM Routine 10/29/2025 7:29 AM EST BASIC METABOLIC PANEL Routine 10/29/2025 7:29 AM EST COMPLETE BLOOD COUNT, WITHOUT DIFFERENTIAL Routine 10/29/2025 7:29 AM EST POCT GLUCOSE, [...] FINGERSTICK (CHARGE) Routine 10/28/2025 8:33 AM EST TSH, HIGHLY SENSITIVE Routine 10/28/2025 6:48 AM EST PHOSPHORUS Routine 10/28/2025 6:48 AM EST MAGNESIUM Routine 10/28/2025 6:48 AM EST COMPLETE BLOOD COUNT, WITHOUT DIFFERENTIAL Routine 10/28/2025 6:48 AM EST BASIC METABOLIC [...] PREPARE RBC'S Routine 10/27/2025 11:30 AM EST BASIC METABOLIC PANEL Routine 10/27/2025 7:54 AM EST COMPLETE BLOOD COUNT, WITHOUT DIFFERENTIAL Routine 10/27/2025 7:54 AM EST MAGNESIUM Routine 10/27/2025 7:54 AM EST PHOSPHORUS Routine 10/27/2025 7:54 AM EST POCT GLUCOSE, FINGERSTICK (CHARGE) Routine 10/27/2025 5:12 AM EST POCT GLUCOSE, FINGERSTICK (CHARGE) Routine 10/27/2025 12:42 AM EST POCT GLUCOSE, FINGERSTICK (CHARGE) Routine 10/26/2025 9:32 PM EST POCT GLUCOSE, FINGERSTICK (CHARGE) Routine 10/26/2025 6:34 PM EST AMMONIA LEVEL Routine 10/26/2025 3:45 PM EST VITAMIN D, 25-HYDROXY Routine 10/26/2025 3:42 PM EST T4, FREE Routine 10/26/2025 3:42 PM EST TSH, HIGHLY SENSITIVE Routine 10/26/2025 3:42 PM EST POCT GLUCOSE, FINGERSTICK (CHARGE) Routine 10/26/2025 12:33 PM EST POCT GLUCOSE, FINGERSTICK (CHARGE) Routine 10/26/2025 7:52 AM EST POCT GLUCOSE, FINGERSTICK (CHARGE) Routine 10/26/2025 5:20 AM EST MAGNESIUM Routine 10/26/2025 3:57 AM EST PHOSPHORUS Routine 10/26/2025 3:57 AM EST COMPLETE BLOOD COUNT, WITHOUT DIFFERENTIAL Routine 10/26/2025 3:57 AM EST BASIC METABOLIC [...] (NO CHARGE) Routine 10/25/2025 5:47 PM EST ANES LINE - ARTERIAL Routine 10/25/2025 5:40 PM EST ANES LINE - PERIPHERAL, SINGLE LUMEN Routine 10/25/2025 4:47 PM EST ANES INTUBATION Routine 10/25/2025 4:46 PM EST NC EXPLORATORY LAPAROTOMY CELIOTOMY W/WO BIOPSY SPX 10/25/2025 3:57 PM EST Tubo-ovarian abscess Rectal fistula NC PERITONEAL LAVAGE W/WO IMAGING GUIDANCE 10/25/2025 3:57 [...] FINGERSTICK (CHARGE) Routine 10/24/2025 7:40 AM EST VANCOMYCIN LEVEL-RANDOM Routine 10/24/2025 6:46 AM EST MAGNESIUM Routine 10/24/2025 6:46 AM EST BASIC METABOLIC PANEL Routine 10/24/2025 6:46 AM EST COMPLETE BLOOD COUNT, WITHOUT DIFFERENTIAL Routine 10/24/2025 6:46 AM EST POCT GLUCOSE, [...] PM EST Ureteral obstruction URINE CULTURE, COMPREHENSIVE (OR/IR/RESCUE INSTRUCTOR) Routine 10/23/2025 3:00 PM EST URINE CULTURE, COMPREHENSIVE (OR/IR/RESCUE INSTRUCTOR) Routine 10/23/2025 2:[address] ABSCESS DRAIN (RETRO) W/GUIDANCE Routine 10/23/2025 1:49 PM EST Tubo-ovarian abscess AEROBIC CULTURE (GRAM STAIN INCLUDED) Routine 10/23/2025 1:38 PM EST FUNGAL CULTURE (NON-BLOOD) Routine 10/23/2025 1:38 PM EST ANAEROBIC CULTURE Routine 10/23/2025 1:3 8 PM EST MYCOBACTERIA CULTURE (INCLUDES ACID FAST SMEAR) Routine 10/23/2025 1:38 PM EST CYTOLOGY REPORT Routine 10/23/2025 1:25 PM EST AEROBIC CULTURE (GRAM STAIN INCLUDED) Routine 10/23/2025 12:46 PM EST FUNGAL CULTURE (NON-BLOOD) Routine 10/23/2025 12:46 PM EST ANAEROBIC CULTURE Routine 10/23/2025 12: 46 PM EST MYCOBACTERIA CULTURE (INCLUDES ACID FAST SMEAR) Routine 10/23/2025 12:46 PM EST POCT GLUCOSE, FINGERSTICK (CHARGE) Routine 10/23/2025 12:06 PM EST POCT GLUCOSE, FINGERSTICK (CHARGE) Routine 10/23/2025 9:47 AM EST TSH, HIGHLY SENSITIVE STAT 10/23/2025 8:22 AM EST PROBNP, N-TERMINAL STAT 10/23/2025 8: 22 AM EST HIGH SENSITIVITY TROPONIN T STAT 10/23/2025 8:22 AM EST PHOSPHORUS STAT 10/23/2025 8:22 AM EST MAGNESIUM STAT 10/23/2025 8:22 AM EST HEMOGLOBIN A1C WITH ESTIMATED AVERAGE GLUCOSE STAT 10/23/2025 8:22 AM EST BASIC METABOLIC PANEL STAT 10/23/2025 8:22 AM EST COMPLETE BLOOD COUNT, WITH DIFFERENTIAL STAT 10/23/2025 8:22 AM EST POCT GLUCOSE, FINGERSTICK (CHARGE) Routine 10/23/2025 2:46 AM EST VITAMIN B12 STAT 10/23/2025 2:22 AM EST IRON AND TOTAL IRON BINDING CAPACITY STAT 10/23/2025 2:22 AM EST FERRITIN STAT 10/23/2025 2:22 AM EST VANCOMYCIN LEVEL-RANDOM STAT 10/23/2025 2:22 AM EST COMPLETE BLOOD COUNT, WITHOUT DIFFERENTIAL STAT 10/23/2025 1:55 AM EST AMMONIA LEVEL STAT 10/23/2025 1:55 AM EST US CERTIFIED LEGAL SECRETARY SPECIALIST PELVIS COMPLETE AND US TRANSVAGINAL STAT 10/23/2025 12:16 AM EST NASAL MRSA SCREEN, PCR STAT 12:05 AM EST LACTIC ACID, PLASMA STAT 10/22/2025 9 :04 PM EST BLOOD CULTURE (HOSP LAB) STAT 10/22/2025 7:18 PM EST ECG 12-LEAD STAT 10/22/2025 7:01 PM EST BLOOD CULTURE (HOSP LAB) STAT 10/22/2025 6:57 PM EST CR CHEST ARCHIVE FOR REFERENCE ONLY Routine 10/22/2025 6:[address] HEAD ARCHIVE FOR REFERENCE ONLY Routine 10/22/2025 6:45 PM EST EDWIN ARCHIVE FOR REFERENCE ONLY US Routine 10/22/2025 6:[address] ABDOMEN ARCHIVE FOR REFERENCE ONLY Routine 10/22/2025 6:43 PM EST ABO CONFIRMATION STAT 10/22/2025 6:20 PM EST CREATININE, URINE, RANDOM STAT 10/22/2025 6:19 PM EST CHLORIDE, URINE, RANDOM STAT 10/22/2025 6:19 PM EST POTASSIUM, URINE, RANDOM STAT 10/22/2025 6:19 PM EST SODIUM, URINE, RANDOM STAT 10/22/2025 6:19 PM EST URINALYSIS WITH REFLEX TO MICROSCOPIC AND CULTURE STAT 10/22/2025 6:19 PM EST (REPORT) REFLEXIVE URINE CULTURE Routine 10/22/2025 6:19 PM EST PARTIAL THROMBOPLASTIN TIME (PTT) STAT 10/22/2025 6:18 PM EST LACTIC ACID, PLASMA STAT 10/22/2025 6 :18 PM EST PROTIME-INR STAT 10/22/2025 6:18 PM EST LIPASE STAT 10/22/2025 6:18 PM EST COMPREHENSIVE METABOLIC PANEL STAT 10/22/2025 6:18 PM EST COMPLETE BLOOD COUNT, WITH DIFFERENTIAL STAT 10/22/2025 6:18 PM EST TYPE AND [...] EST from Last 3 Months Results * (ABNORMAL) POCT Glucose, Fingerstick (11/05/2025 8:32 AM EST) Only the most recent of75 resultswithin the time period is included. Pathologist [facility] [place] POC Glucose 183(H) 65 - 99 mg/dL 11/05/2025 8:32 AM EST Blood specimen / Unknown 11/05/2025 8:32 AM EST 11/05/2025 8:33 AM EST us Jatinder German MD POINT OF CARE TEST ORDERABLE S Final Result HOSPITAL LAB See Below * (ABNORMAL) Complete Blood Count WITH Differential - in AM (11/04/2025 6:43 AM EST) Only the most recent of3 resultswithin the time period is included. Pathologist [facility] [place] White Blood Cell Count 16.2(H) 4.0 - 11.0 Thou/uL 11/04/2025 8:55 AM EST [facility] Platelet Count 677(H) 150 - 450 Thou/uL 11/04/2025 8:55 AM EST [facility] Hemoglobin 8.7(L) 11.7 - 15.7 g/dL 11/04/2025 8:55 AM EST [facility] Hematocrit 27.8(L) 35.0 - 47.0 % 11/04/2025 8:55 AM [facility] Red Blood Cell Count 3.30(L) 4.00 - 5.40 Mil/uL 11/04/2025 8:55 AM [facility] MCV 84 80 - 100 fL 11/04/2025 8:55 AM [facility] MCH 26.4(L) 27.0 - 31.0 pg 11/04/2025 8:55 AM [facility] MCHC 31.3 30.0 - 36.0 g/dL 11/04/2025 8:55 AM [facility] RDW 17.7(H) 11.5 - 14.5 % 11/04/2025 8:55 AM [facility] MPV 9.5 7.5 - 12.5 fL 11/04/2025 8:55 AM [facility] Neutrophils Auto 68.1 % 11/04/20 8:55 AM [facility] Immature Granulocytes 2.2 % 11/04/2025 8:55 AM [facility] Lymphocytes Auto 16.1 % 11/04/20 8:55 AM [facility] Monocytes Auto 8.6 % 11/04/2025 8:55 AM [facility] Eosinophils Auto 4.3 % 11/04/20 8:55 AM [facility] Basophils Auto 0.7 % 11/04/2025 8:55 AM [facility] Abs Neutrophils Auto 11.06(H) 2.00 - 7.50 Thou/uL 11/04/2025 8:55 AM [facility] Abs Immature Granulocytes 0.35(H) 0.00 - 0.10 Thou/uL 11/04/2025 8:55 AM [facility] Abs Lymphocytes Auto 2.62 1.50 - 4.50 Thou/uL 11/04/2025 8:55 AM [facility] Abs Monocytes Auto 1.40 0.20 - 1.50 Thou/uL 11/04/2025 8:55 AM [facility] Abs Eosinophils Auto 0.70 0.00 - 0.70 Thou/uL 11/04/2025 8:55 AM [facility] Abs Basophils Auto 0.11 0.00 - 0.20 Thou/uL 11/04/2025 8:55 AM [facility] Blood Blood specimen / Unknown 11/04/2025 6:43 AM EST 11/04/2025 8:35 AM EST us Tisha Shah MD LAB BLOOD ORDERABLES Final Resul t Performing Organization Address City/[facility] Co de Phone Number [address] [address], [address] [address] * Phosphorus (11/04/2025 6:43 AM EST) Only the most recent of11 resultswithin the time period is included. Phosphorus 4.1 2.7 - 4.5 mg/dL 11/04/2025 9:07 AM EST [facility] Blood Blood specimen / Unknown 11/04/2025 6:43 AM EST 11/04/2025 8:35 AM EST us Tisha Shah MD LAB BLOOD ORDERABLES Final Resul t Performing Organization Address [facility] [place] [address], [address] [address] * (ABNORMAL) Magnesium (11/04/2025 6:43 AM EST) Only the most recent of12 resultswithin the time period is included. Magnesium 1.5(L) 1.6 - 2.7 mg/dL 11/04/2025 9:07 AM EST [facility] Blood Blood specimen / Unknown 11/04/2025 6:43 AM EST 11/04/2025 8:35 AM EST us Tisha Shah MD LAB BLOOD ORDERABLES Final Resul t Performing Organization Address City/[facility] [place] [address], [address] [address] * (ABNORMAL) Basic Metabolic Panel (11/04/2025 6:43 AM EST) Only the most recent of13 resultswithin the time period is included. Glucose 137(H) 65 - 99 mg/dL 11/04/2025 9:07 AM [facility] Comment:Fasting: <100 mg/dL, Non-Fasting: <200 mg/dL (ADA 2004) Blood Urea Nitrogen (BUN) 10 8 - 21 mg/dL 11/04/2025 9:07 AM [facility] Creatinine 1.14(H) 0.40 - 1.10 mg/dL 11/04/2025 9:07 AM [facility] eGFR 58(L) >59 11/04/2025 9:07 AM [facility] Comment:CKD-EPI (2020) in mL /min/1.73 sq meters. Sodium 137 136 - 145 mmol/L 11/04/2025 9:07 AM [facility] Potassium 3.9 3.4 - 5.3 mmol/L 11/04/2025 9:07 AM [facility] Chloride 100 98 - 107 mmol/L 11/04/2025 9:07 AM [facility] CO2 26 22 - 33 mmol/L 11/04/2025 9:07 AM [facility] Anion Gap 11 7 - 17 11/04/2025 9:07 AM [facility] Calcium 8.9 8.7 - 10.5 mg/dL 11/04/2025 9:07 AM [facility] BUN/Creatinine Ratio 9(L) 10.0 - 25.0 Ratio 11/04/2025 9:07 AM [facility] Blood Blood specimen / Unknown 11/04/2025 6:43 AM EST 11/04/2025 8:35 AM EST Tisha Shah MD LAB BLOOD ORDERABLES Final Resul t [address] [address], [address] [address] * PICC/Midline Insertion (11/03/2025 1:48 PM EST) [...] to verify the correct patient, procedure, equipment, software support specialist and site/side marked as required. Preparation: Patient was prepped and draped in the usual sterile fashion. Local anesthesia used: yes Anesthesia: local infiltration Anesthesia: Local anesthesia used: yes Local Anesthetic: lidocaine 1% without epinephrine Anesthetic total: 4 mL Sedation: Patient sedated: no Patient tolerance: patient tolerated the procedure well with no immediate complications us Eddie Alicia MD PROCEDURE/MINOR SURGICAL ORDERAB LES Final Result * (ABNORMAL) COMPLETE BLOOD COUNT, WITHOUT DIFFERENTIAL (11/03/2025 7:35 AM EST) Only the most recent of13 resultswithin the time period is included. White Blood Cell Count 21.5(H) 4.0 - 11.0 Thou/uL 11/03/2025 8:20 AM [facility] Platelet Count 636(H) 150 - 450 Thou/uL 11/03/2025 8:20 AM [facility] Hemoglobin 8.6(L) 11.7 - 15.7 g/dL 11/03/2025 8:20 AM [facility] Hematocrit 27.5(L) 35.0 - 47.0 % 11/03/2025 8:20 AM [facility] Red Blood Cell Count 3.25(L) 4.00 - 5.40 Mil/uL 11/03/2025 8:20 AM [facility] MCV 85 80 - 100 fL 11/03/2025 8:20 AM [facility] MCH 26.5(L) 27.0 - 31.0 pg 11/03/2025 8:20 AM [facility] MCHC 31.3 30.0 - 36.0 g/dL 11/03/2025 8:20 AM [facility] RDW 18.0(H) 11.5 - 14.5 % 11/03/2025 8:20 AM [facility] MPV 9.5 7.5 - 12.5 fL 11/03/2025 8:20 AM [facility] Blood Blood specimen / Unknown 11/03/2025 7:35 AM EST 11/03/2025 8:01 AM EST us Tisha Shah MD LAB BLOOD ORDERABLES Final Resul t [address] [address], [address] [address] * CT Abdomen and Pelvis with IV [...] Diffuse anasarca. Interpreted by: Lito Bhat MD [employer] I personally reviewed the images and the [...] Diffuse anasarca. Interpreted by: Lito Bhat MD [employer] I personally reviewed the images and the resident's preliminary report and AGREE with the report as it is now presented ([id number]). Eddie Alicia MD IM CT ORDERABLES Final Result * Prepare RBC's:Prepare in: Units; Number of Units: 1; Transfusion Indications: Hemoglobin greater than 7 gm/dl or HCT greater than 21% but Acute blood loss greater than 500 ml and symptoms not corrected by volume (10/28/2025 1:02 PM EST) Only the most recent of2 resultswithin the time period is included. Units Ordered 1 10/28/2025 1:01 PM EST [facility] 10/28/2025 1:02 PM EST 10/28/2025 1:21 PM EST us Eddie Alicia MD BLOOD BANK PRODUCT ORDERABLES Fi nal Result Performing Organization Address [facility] [place] [address], [place] [address] * (ABNORMAL) TSH, HIGHLY SENSITIVE (10/28/2025 6:48 AM EST) Only the most recent of3 resultswithin the time period is included. TSH, Highly Sensitive 31.50(H) 0.27 - 4.20 mIU/L 10/28/2025 1:56 PM EST [facility] 10/28/2025 6:48 AM EST 10/28/2025 7:10 AM EST us Eddie Alicia MD LAB BLOOD ORDERABLES Final Resul t Performing Organization Address City/[facility] [place] [address], [place] [address] * Transfuse RBC's:Transfusion Indications: Hemoglobin greater than 7 gm/dl or HCT greater than 21% but Acute blood loss greater than 500 ml and symptoms not corrected by volume, Hemoglobin less than 7 gm/dl or HCT less than 21%; Transfusion duration... (10/27/2025 4:33 PM EST) us Eddie Alicia MD BLOOD TRANSFUSION ORDERABLES Fin al Result * (ABNORMAL) Hemoglobin and Hematocrit (10/27/2025 1:17 PM EST) Hematocrit 21.0(L) 35.0 - 47.0 % 10/27/2025 2:50 PM EST [facility] Hemoglobin 6.4(L) 11.7 - 15.7 g/dL 10/27/2025 2:50 PM EST [facility] Blood Blood specimen / Unknown 10/27/2025 1:17 PM EST 10/27/2025 2:20 PM EST us Brandi Clifford MD LAB BLOOD ORDERABLES Final Result Performing Organization Address City/[facility]/ZIP Co de Phone Number [address] [address], [address] [address] * Type and Screen (10/27/2025 11:41 AM EST) Only the most recent of2 resultswithin the time period is included. ABO/Rh O NEGATIVE 10/27/2025 1:26 PM [facility] Antibody Screen NEGATIVE 10/27/2025 1:26 PM [facility] Specimen Expiration 10/30/2025 10/27/2025 1:26 PM [facility] Unit Number [id number] 10/27/2025 1:45 PM [facility] Blood Component Type LR RBC CONTAINER 2 10/27/2025 1:45 PM [facility] Unit Division 00 10/27/2025 1:45 PM [facility] Unit Status ISSUED,FINAL 10/28/2025 12:16 AM [facility] Transfusion Status OK TO TRANSFUSE 10/27/2025 1:45 PM [facility] Crossmatch Result Electronically Compatible 10/27/2025 1:45 PM [facility] Unit Number [id number] 10/28/2025 1:22 PM [facility] Blood Component Type LEUKOREDUCED RED CELLS 10/28/2025 1:22 PM [facility] Unit Division 00 10/28/2025 1:22 PM [facility] Unit Status ISSUED,FINAL 10/29/2025 12:09 AM [facility] Transfusion Status OK TO TRANSFUSE 10/28/2025 1:22 PM [facility] Crossmatch Result Electronically Compatible 10/28/2025 1:22 PM [facility] Blood Blood specimen / Unknown 10/27/2025 11:41 AM EST 10/27/2025 12:25 PM EST Comment:Blood us Eddie Alicia MD BLOOD BANK TEST ORDERABLES Final Result [place] [address] * Ammonia Level (10/26/2025 3:45 PM EST) Only the most recent of2 resultswithin the time period is included. Ammonia, Plasma 34 11 - 51 umol/L 10/26/2025 5:34 PM EST [facility] Blood Blood specimen / Unknown 10/26/2025 3:45 PM EST 10/26/2025 4:20 PM EST [employer] DO LAB BLOOD [place] [address], [place] [address] * (ABNORMAL) Vitamin D, 25-Hydroxy (10/26/2025 3:42 PM EST) Pathologist [facility] [place] Vitamin D, 25-Hydroxy 25(L) 30 - 100 ng/mL 10/26/2025 5:28 PM [facility] Blood Blood specimen / Unknown 10/26/2025 3:42 PM EST 10/26/2025 4:20 PM EST [employer] LAB BLOOD ORDERABLES Ce l Result Performing Organization Address City/[facility]/[place] [address], [place] [address] * (ABNORMAL) T4, Free (10/26/2025 3:42 PM EST) Pathologist [facility] [place] T4, Free 0.71(L) 0.80 - 1.90 ng/dL 10/26/2025 5:05 PM EST [facility] Blood Blood specimen / Unknown 10/26/2025 3:42 PM EST 10/26/2025 4:20 PM EST [employer] DO LAB BLOOD ORDERABLES Ce l Result [address] [address], [address] [address] * XR Abdomen 1 view-Portable (10/25/2025 8:39 [...] Dr. Alicia at 8:35 PM Eastern time. Alfredo Aponte MD IMG DIAGNOSTIC IMAGING OR DERABLES Final Result * (ABNORMAL) ISTAT Hemoglobin (10/25/2025 7:00 PM EST) Only the most recent of2 resultswithin the time period is included. Hemoglobin, I-STAT 9.9(L) 11.7 - 15.7 gm/dL 10/26/2025 11:36 PM EST Blood specimen / Unknown 10/25/2025 7:00 PM EST 10/26/2025 11:35 PM EST us Eddie Alicia MD POCT ORDERABLES - DEVICE Final R esult HOSPITAL LAB See Below * (ABNORMAL) ISTAT Hematocrit (10/25/2025 7:00 PM EST) Only the most recent of2 resultswithin the time period is included. Hematocrit, I-STAT 29.0(L) 35.0 - 47.0 % 10/26/2025 11:36 PM EST Blood specimen / Unknown 10/25/2025 7:00 PM EST 10/26/2025 11:35 PM EST us Eddie Alicia MD POCT ORDERABLES - DEVICE Final R esult Performing Organization Address [facility] LAB See Below * (ABNORMAL) ISTAT Calcium, Ionized (ICA) (10/25/2025 7:00 PM EST) Only the most recent of2 resultswithin the time period is included. Ionized Calcium, I-STAT 1.14(L) 1.17 - 1.33 mmol/L 10/26/2025 11:36 PM EST Blood specimen / Unknown 10/25/2025 7:00 PM EST 10/26/2025 11:35 PM EST us Eddie Alicia MD POINT OF CARE TEST ORDERABLES Fi nal Result Performing Organization Address [facility] LAB See Below * ISTAT Potassium (K) (10/25/2025 7:00 PM EST) Only the most recent of2 resultswithin the time period is included. Potassium, I-STAT 4.0 3.4 - 5.3 mmol/L 10/26/2025 11:36 PM EST Blood specimen / Unknown 10/25/2025 7:00 PM EST 10/26/2025 11:35 PM EST us Eddie Alicia MD POINT OF CARE TEST ORDERABLES Fi nal Result Performing Organization Address [facility] LAB See Below * ISTAT Sodium (Na) (10/25/2025 7:00 PM EST) Only the most recent of2 resultswithin the time period is included. Sodium, I-STAT 145 136 - 145 mmol/L 10/26/2025 11:36 PM EST Blood specimen / Unknown 10/25/2025 7:00 PM EST 10/26/2025 11:35 PM EST us Eddie Alicia MD POINT OF CARE TEST ORDERABLES Fi nal Result Performing Organization Address [facility] LAB See Below * (ABNORMAL) ISTAT Glucose (10/25/2025 7:00 PM EST) Only the most recent of2 resultswithin the time period is included. Glucose, I-STAT 146(H) 65 - 99 mg/dL 10/26/2025 11:36 PM EST Blood specimen / Unknown 10/25/2025 7:00 PM EST 10/26/2025 11:35 PM EST us Eddie Alicia MD POCT ORDERABLES - DEVICE Final R esult Performing Organization Address [facility] LAB See Below * (ABNORMAL) ISTAT Arterial Blood Gas (ABG) (10/25/2025 7:00 PM EST) Only the most recent of2 resultswithin the time period is included. PH Arterial, I-STAT 7.34(L) 7.35 - 7.45 [...] * Pathology (10/25/2025 6:41 PM EST) Report [facility] [id number] CLIA ID [id number] [address] [place] [id number] [phone] Surgical Pathology Report PATIENT NAME: SIS VALDEZ [facility] REC NUMBER: [id number] (AGE): 1970 (Age: 55) SPECIMEN NUMBER: [id number] DATE OBTAINED: 10/25/2025 DIAGNOSIS A. PLEASE SEE CORRESPONDING CYTOLOGY REPORT ([id number]) B. LEFT OVARIAN CYST WALL: FRAGMENTS OF OVARIAN STROMA WITH ACUTE AND CHRONIC INFLAMMATION, CONSISTENT WITH TUBO-OVARIAN ABSCESS NEGATIVE FOR ATYPIA OR MALIGNANCY case repairer/11/01/2025 Electronically Signed Out LETI CARRANZA MD Signout Facility: [address] CLIA #: [id number] COMMENT [id number] Clinical Information and History: Tubo-ovarian abscess Tissue(s) [...] of tissue, submitted in toto in B2. [facility] Tissue (Abdominal Cavity) 10/25/2025 6:41 PM EST Eddie Alicia MD PATHOLOGY/CYTOLOGY ORDERABLES Fi nal Result HOSPITAL LAB See Below * Cytology Report (10/25/2025 6:08 PM EST) Only the most recent of2 resultswithin the time period is included. Report [facility] [id number] CLIA ID [id number] [address] [place] [id number] / [phone] Cytopathology Report PATIENT NAME: SIS VALDEZ [facility] REC NUMBER: [id number] (AGE): 1970 (Age: 55) SPECIMEN NUMBER: [id number] DATE OBTAINED: 10/25/2025 DIAGNOSIS: A. LEFT ADNEXAL CYST FLUID, OTHER WITH CELL BLOCK: NEGATIVE FOR MALIGNANT CELLS; INFLAMMATORY CELLS WITH ABUNDANT NEUTROPHILS, AND BLAND LOOKING CYST LINING CELLS; SEE ALSO [id number] [facility]/10/28/2025 Electronically Signed Out HAI ALY MD Signout Facility: [address] CLIA #: [id number] Clinical Diagnosis and History: TUBO-OVARIAN ABSCESS LEFT [...] Fluid (Abdominal Cavity) 10/25/2025 6:08 PM EST Eddie Alicia MD PATHOLOGY/CYTOLOGY ORDERABLES Fi nal Result HOSPITAL LAB See Below * ANES LINE - ARTERIAL (10/25/2025 5:40 PM EST) Narrative Eduardo Sesay MD - 10/25/2025 5:40 PM EST Eduardo Stanley MD 10/25/2025 5:41 PM Anesthesia Procedure Note - Arterial Line Insertion- R radial Patient Name: Sis Valdez : 1970 Patient location: OR Indications: hemodynamic monitoring, blood gases and frequent lab draws Procedure diagnosis: Anesthesia Procedure Start Time: 10/25/2025 5:40 PM Performed by: Anesthesiologist Eduardo Stanley MD Procedure Preparation Skin prep: 2% chlorhexidine Sterile barriers in place: cap, gown, mask, gloves and large sterile sheet Procedure Details Omari's test normal? normal Needle: 20 g Number of attempts: 1 Post Procedure Post-procedure: dressing applied us Tim Spangler DO [place] ANESTHESIA Final Result * ANES LINE - PERIPHERAL, SINGLE LUMEN (10/25/2025 4:47 PM EST) Narrative Tim Spangler DO - 10/25/2025 4:47 PM EST Tim Spangler DO 10/25/2025 4:48 PM Anesthesia Procedure Note - Peripheral IV Placement Patient Name: Sis Valdez : 1970 Patient location: OR Indication(s): surgery and fluid administration Performed by: Anesthesiologist Tim Spangler DO Procedure Preparation Skin prep: alcohol - completely dried prior to procedure Hand hygeine performed prior to needle/catheter insertion Sterile barriers in place: cap and mask Single lumen [id number] catheter system, 18 g, 1/2 in length, in left wrist Insertion attempts: 1 us Tim Spangler DO [place] ANESTHESIA Final Result * ANES INTUBATION (10/25/2025 4:46 PM EST) Narrative Tim Spangler DO - 10/25/2025 4:46 PM EST Tim Spangler DO 10/25/2025 4:47 PM Anesthesia Procedure Note - Elective intubation Patient Name: Sis Valdez : 1970 Patient location: OR Procedure diagnosis: Anesthesia Performed by: Anesthesiologist Tim Spangler DO Chart Verification Airway: airway not difficult Preanesthetic Checklist monitors and equipment checked. Patient's pre-procedure mental status: awake The patient was sedated prior to procedure. Current level of sedation: general anesthesia Airway not difficult - NPO status: > 8 hours Procedure Details Intubation route: oral Intubation method: direct laryngoscopy Mac 3 Number of attempts: 1 Patient status for intubation: paralyzed and unresponsive Patient position: supine Preoxygenation: BVM Quality of BVM: easy Tube size: 7.5 mm Tube: EVAC - cuffed, cuff inflated and minimal leak test Cricoid pressure not applied or not required Cord visualization: Grade IIa Placement confirmation method: chest rise and ETCO2 monitor Breath sounds: equal bilaterally ETT to lip: 22 cm Dentition: same as baseline Complications: no complications Tim Spangler DO [place] ANESTHESIA Final Result * CT Abdomen+pelvis w/contrast (10/25/2025 1:42 PM [...] of the scan. Fleischner guidelines were followed. Ignacio Galarza MD IMG CT ORDERABLES Final Resul t * Vancomycin Level, Random (10/24/2025 6:46 AM EST) Only the most recent of2 resultswithin the time period is included. Vancomycin, Random 14 mg/L 10/24/2025 8:39 AM EST [facility] Comment:No reference range e stablished for random levels. Time of Last Dose Information not given 10/23/2025 11:03 PM EST [facility] Blood Blood specimen / Unknown 10/24/2025 6:46 AM EST 10/24/2025 7:47 AM EST Mehnaz Rodriguez MD LAB BLOOD ORDERABLES Ce baer Result [address] [address], [facility] [address] [place] [address] * IR INJECT NEPHROSTOGRAM NEW ACCESS-BILAT W/GUIDANCE [...] weeks. PROCEDURE SUMMARY - Target organ: Bilateral prairie band kidneys - Image-guided placement of genitourinary catheter(s) [...] Contrast injection was performed. Genitourinary catheter placed:10 Cymro multipurpose drainage catheter Findings: Severe hydroureteronephrosis with [...] weeks. PROCEDURE SUMMARY - Target organ: Bilateral prairie band kidneys - Image-guided placement of genitourinary catheter(s) [...] Contrast injection was performed. Genitourinary catheter placed:10 Cymro multipurpose drainage catheter Findings: Severe hydroureteronephrosis with [...] the report as written. Annika Milian MD [facility] IR ORDERABLES Final Result * Urine Culture, Comprehensive (10/23/2025 3:00 PM EST) Only the most recent of2 resultswithin the time period is included. Culture No aerobes isolated after 3 days and no anaerobes isolated after 5 days. 10/28/2025 9:05 AM EST [facility] Nephrostomy Catheter, right 10/23/2025 3:00 PM EST 10/23/2025 4:03 PM EST Comment:Urine us Jatinder German MD MICROBIOLOGY - GENERAL ORDER UNA Final Result [facility] [address] [place] [address], [place] * CT ABSCESS DRAIN (RETRO) W/GUIDANCE (10/23/2025 1:49 PM EST) Anatomical Region Laterality Modality Computed Tomogra phy 10/23/2025 12:1 4 PM EST Impressions 10/26/2025 4:35 PM EST 1. Percutaneous placement of a transgluteal 12 Cymro drainage catheter into the presacral fluid collection, yielding 55 mL of emely pus. Samples sent for culture. Drain attached to bulb suction. 2. Percutaneous placement of a 10 Cymro mini loop drainage catheter into the fluid [...] 4.0 cm. - Drainage catheter placed: 12 Cymro Multipurpose drainage catheter - External catheter securement: [...] 3.5 cm. - Drainage catheter placed: 10 Cymro mini loop Multipurpose drainage catheter - External [...] x 1.5 cm. - Aspiration needle/catheter: 5 Cymro one-step catheter - Post-aspiration imaging findings: Near-complete [...] 1. Percutaneous placement of a transgluteal 12 Cymro drainage catheter into the presacral fluid collection, yielding 55 mL of emely pus. Samples sent for culture. Drain attached to bulb suction. 2. Percutaneous placement of a 10 Cymro mini loop drainage catheter into the fluid [...] 4.0 cm. - Drainage catheter placed: 12 Cymro Multipurpose drainage catheter - External catheter securement: [...] 3.5 cm. - Drainage catheter placed: 10 Cymro mini loop Multipurpose drainage catheter - External [...] x 1.5 cm. - Aspiration needle/catheter: 5 Cymro one-step catheter - Post-aspiration imaging findings: Near-complete [...] as written. us Annika Milian MD IMG IRCT ORDERABLES Final Resul t * Fungal Culture (non-blood) (10/23/2025 1:38 PM EST) Only the most recent of2 resultswithin the time period is included. Direct Smear Suggests No fungal elements 10/25/2025 11:29 AM EST [facility] Culture No fungus isolated 11/08/2025 7:55 AM EST [facility] Specimen from ovary / Unknown 10/23/2025 1:38 PM EST 10/23/2025 3:03 PM EST Comment:Aspirate, Abscess us Jatinder German MD MICROBIOLOGY - GENERAL ORDER UNA Final Result [facility] [address] [place] [address], [place] * (ABNORMAL) Aerobic culture (Gram stain included) (10/23/2025 1:38 PM EST) Only the most recent of2 resultswithin the time period is included. Gram stain suggestive of Many neutrophils No squamous cells Red blood cells Gram positive cocci 10/23/2025 6:49 PM [facility] Culture E.coli(A) 10/25/2025 12:12 PM EST [facility] Culture Streptococcus constellatus(A) 10/25/2025 12:12 PM [facility] Specimen from ovary / Unknown 10/23/2025 1:38 PM EST 10/23/2025 3:04 PM EST Comment:Aspirate, Abscess Narrative Organism Antibiotic Method Susceptibility E.coli Amoxicillin/Clavulanate (REPORT) BACTERIAL ALYSSA AND INTERPRETATION (MCG/ML) 8: Susceptible E.coli Ampicillin (REPORT) BACTERI AL ALYSSA [...] (REPORT) BA CTERIAL ALYSSA AND INTERPRETATION (MCG/ML) 06/14: Susceptible us Jatinder German MD MICROBIOLOGY - GENERAL ORDER UNA Final Result [facility] [address] [place] [address], [address] [address] * (ABNORMAL) Anaerobic Culture (10/23/2025 1:38 PM EST) Only the most recent of2 resultswithin the time period is included. Culture Mixed anaerobic cabrera(A) 10/28/2025 12:08 PM EST [facility] Specimen from ovary / Unknown 10/23/2025 1:38 PM EST 10/23/2025 3:03 PM EST Comment:Aspirate, Abscess Jatinder German MD MICROBIOLOGY - GENERAL ORDER UNA Final Result [facility] [address] [place] [address], * (ABNORMAL) High Sensitivity Troponin T (10/23/2025 8:22 AM EST) Pathologist [facility] [place] High Sensitivity Troponin T 24(H) <15 ng/L 10/23/2025 3:24 PM EST [facility] Delta (Change) NO PREVIOUS RESULT <3 10/23/2025 3:24 PM EST [facility] 10/23/2025 8:22 AM EST 10/23/2025 8:36 AM EST Annika Milian MD LAB BLOOD ORDERABLES Final Resu lt Performing Organization Address City/[facility]/ZIP Co de Phone Number [address] [address], [place] [address] [address] * (ABNORMAL) proBNP, N-terminal (10/23/2025 8:22 AM EST) proBNP, N-terminal 1,039(H) <125 pg/mL 10/23/2025 3:24 PM EST [facility] 10/23/2025 8:22 AM EST 10/23/2025 8:36 AM EST Annika Milian MD LAB BLOOD ORDERABLES Final Resu lt [facility] [address] [place] [address], [facility] [address] [place] [address] * (ABNORMAL) Hemoglobin A1c with Estimated Average Glucose (10/23/2025 8:22 AM EST) Hemoglobin A1C 9.0(H) <5.7 % 10/23/2025 9:22 AM [facility] Comment: A1c% Interpretation 5.7 - 6.0 Increase risk of diabetes 6.1 - 6.4 Higher risk of diabetes > or = 6.5 Consistent with diabetes Diabetes Care, 33(Supp 1):S1-S61, 2010 Estimated Average Glucose 212 mg/dL 10/23/2025 9:22 AM [facility] Blood Blood specimen / Unknown 10/23/2025 8:22 AM EST 10/23/2025 8:36 AM EST us Annika Milian MD LAB BLOOD ORDERABLES Final Resu lt Performing Organization Address City/[facility]/[place] [address], [place] [address] * (ABNORMAL) Iron and Total Iron Binding Capacity (10/23/2025 2:22 AM EST) Iron 16(L) 59 - 151 ug/dL 10/23/2025 3:37 AM [facility] UIBC 110(L) 112 - 346 ug/dL 10/23/2025 3:37 AM [facility] Total Iron Binding Capacity 126 100 - 400 ug/dL 10/23/2025 3:37 AM [facility] Iron Sat 13(L) 20 - 50 % 10/23/2025 3:37 AM [facility] 10/23/2025 2:22 AM EST 10/23/2025 2:31 AM EST us Annika Milian MD LAB BLOOD [place] [address], [place] [address] * (ABNORMAL) FERRITIN (10/23/2025 2:22 AM EST) Ferritin 1,172(H) 30 - 400 ug/L 10/23/2025 3:37 AM EST [facility] 10/23/2025 2:22 AM EST 10/23/2025 2:31 AM EST us Annika Milian MD LAB BLOOD ORDERABLES Final Resu lt Performing Organization Address City/[facility] [place] [address], [place] [address] * VITAMIN B12 (10/23/2025 2:22 AM EST) Vitamin B12 477 243 - 894 pg/mL 10/23/2025 3:37 AM EST [facility] 10/23/2025 2:22 AM EST 10/23/2025 2:31 AM EST us Annika Milian MD LAB BLOOD ORDERABLES Final Resu lt Performing Organization Address [facility] [place] [address], [place] [address] * [place] Anesthesiology Fellow Pelvis Transabdominal with US Anesthesiology Fellow Transvaginal (10/23/2025 12:16 AM EST) Anatomical Region [...] in diameter. Interpreted by: Santiago Elena MD [employer] I personally reviewed the images and the [...] in diameter. Interpreted by: Santiago Elena MD [employer] I personally reviewed the images and the resident's preliminary report and AGREE with the report as it is now presented ([id number]). Jatinder German MD IMG US ORDERABLES Final Resu lt * Nasal MRSA Screen, PCR (10/23/2025 12:05 AM EST) MRSA Result Not Detected Not Detected 2:54 AM EST [facility] Comment:Performed by the Xpe rt MRSA NxG Assay Swab, Anterior Nares Specimen from nose / Unknown 10/23/2025 12:05 AM EST 10/23/2025 12:25 AM EST James Andrews MD MICROBIOLOGY - GENERAL ORDERAB LES Final Result Performing Organization Address [facility] [place] [address], [place] [address] * Lactate Level X 2 (10/22/2025 9:04 PM EST) Only the most recent of2 resultswithin the time period is included. Lactic Acid 0.7 0.5 - 1.9 mmol/L 10/22/2025 10:12 PM EST [facility] Blood Blood specimen / Unknown 10/22/2025 9:04 PM EST 10/22/2025 9:32 PM EST us James Andrews MD LAB BLOOD ORDERABLES Final Res ult Performing Organization Address [facility] [place] [address], [place] [address] * Blood Culture (10/22/2025 7:18 PM EST) Only the most recent of2 resultswithin the time period is included. Culture Sterile after 5 days 10/27/2025 7:53 AM EST [facility] Blood (Blood, Peripheral Line) 10/22/2025 7:18 PM EST 10/22/2025 9:18 PM EST Comment:Blood us James Andrews MD LAB BLOOD ORDERABLES Final Res ult Performing Organization Address City/[facility]/ZIP Co de Phone Number [facility] [address] [place] [address], [place] * ECG 12 lead (10/22/2025 7:01 PM EST) Ventricular rate 116 BPM EKG [facility] Atrial rate 116 BPM EKG [facility] P-R interval 170 ms EKG [facility] QRS duration 90 ms EKG [facility] Q-T interval 322 ms EKG [facility] QTC calculation (Bazett) 448 ms EKG [facility] P axis 64 degrees EKG [facility] R axis -12 degrees EKG [facility] T axis 71 degrees EKG [facility] 10/22/2025 7:01 PM EST Narrative EKG [facility] - 10/22/2025 9:20 PM EST Sinus tachycardia Low voltage QRS Cannot rule out Anterior infarct , age undetermined Abnormal ECG No previous ECGs available Confirmed by MD Sanches Maximilian ([id number]) on 10/22/2025 9:20:01 PM Procedure Note Francisco Sanches MD - 10/22/2025 Sinus tachycardia Low voltage QRS Cannot rule out Anterior infarct , age undetermined Abnormal ECG No previous ECGs available Confirmed by MD Sanches Maximilian ([id number]) on 10/22/2025 9:20:01 PM us James Andrews MD ECG ORDERABLES Edited Result - Final [facility] * CR Chest Archive for Reference only (10/22/2025 6:45 PM EST) Only the most recent of2 resultswithin the time period is included. Narrative [place] - 10/22/2025 6:45 PM EST This study has been auto finalized and does not contain a result. us File Room Provider IMG DIGITIZE FILMS Final Resu lt Performing Organization Address [facility] Phone Number [place] [phone] * CT Head Archive for Reference Only (10/22/2025 6:45 PM EST) Only the most recent of2 resultswithin the time period is included. Narrative [place] - 10/22/2025 6:45 PM EST This study has been auto finalized and does not contain a result. us File Room Provider IMG DIGITIZE FILMS Final Resu lt Performing Organization Address [facility] Phone Number [place] [phone] * EDWIN Archive for reference only [place] (10/22/2025 6:45 PM EST) Only the most recent of2 resultswithin the time period is included. Narrative [place] - 10/22/2025 6:40 PM EST This order has been auto-finalized and does not contain a result. us File Room Provider IMG DIGITIZE FILMS Final Resu lt Performing Organization Address [facility] Phone Number [place] [phone] * CT Abdomen Archive for Reference Only (10/22/2025 6:43 PM EST) Only the most recent of2 resultswithin the time period is included. Narrative [place] - 10/22/2025 6:43 PM EST This study has been auto finalized and does not contain a result. us File Room Provider IMG DIGITIZE FILMS Final Resu lt Performing Organization Address [facility] Phone Number [place] [phone] * ABO Confirmation (10/22/2025 6:20 PM EST) ABO/Rh O NEGATIVE 10/22/2025 8:04 PM EST [facility] Blood Blood specimen / Unknown 10/22/2025 6:20 PM EST 10/22/2025 7:23 PM EST us James Andrews MD BLOOD BANK TEST ORDERABLES Fin al Result Performing Organization Address City/State/[facility] Co de Phone Number [address] [address], [address] [address] * (ABNORMAL) Reflexive Urine Culture (10/22/2025 6:19 PM EST) Culture Klebsiella pneumoniae 1000 col/mL (A) 10/24/2025 2:18 PM EST [facility] Urine specimen obtained via straight [...] MICROBIOLOGY - GENERAL ORDERAB LES Final Result [facility] [address] [place] [address], [place] * (ABNORMAL) Urinalysis with Reflex to Microscopic and Culture (10/22/2025 6:19 PM EST) Color Yellow 10/22/2025 8:52 PM [facility] Clarity Cloudy 10/22/2025 8:52 PM [facility] Specific Hackberry 1.010 1.005 - 1.030 10/22/2025 8:52 PM [facility] pH 5.0 5.0 - 8.0 10/22/2025 8:52 PM [facility] Leukocyte Esterase Moderate(A) Negative 10/22/2025 8:52 PM [facility] Nitrite Negative Negative 10/22/2025 8:52 PM [facility] Protein Trace(A) Negative mg/dL 10/22/2025 8:52 PM [facility] Glucose Negative Negative mg/dL 10/22/2025 8:52 PM [facility] Ketones Negative Negative mg/dL 10/22/2025 8:52 PM [facility] Blood Small(A) Negative 10/22/2025 8:52 PM [facility] Bilirubin Negative Negative 10/22/2025 8:52 PM [facility] RBC 1 0 - 4 per hpf 10/22/2025 8:52 PM [facility] WBC >25(H) 0 - 4 per hpf 10/22/2025 8:52 PM [facility] Epithelial Cells 2 per hpf 10/22/2025 8:52 PM [facility] Casts 17(H) 0 - 4 per lpf 10/22/2025 8:52 PM [facility] Comment:Casts are hyaline un less otherwise noted. Bacteria Present(A) Absent 10/22/2025 8:52 PM [facility] Comment:Presence of bacteria does not necessarily indicate a UTI. Please correlate with degree of pyuria and presence of clinical symptoms for UTI. Hyaline Casts Present per lpf 10/22/2025 8:52 PM [facility] Urine Urine specimen obtained via straight catheter / Unknown 10/22/2025 6:19 PM EST 10/22/2025 8:31 PM EST us James Andrews MD URINE ORDERABLES Final Result Performing Organization Address [facility] Co de Phone Number [address] [address], [address] [address] * Sodium, Urine, Random (10/22/2025 6:19 PM EST) Sodium, Urine Random 21 mmol/L 10/22/2025 9:13 PM [facility] Comment:Reference range not established for random specimen. Urine Urine specimen / Unknown 10/22/2025 6:19 PM EST 10/22/2025 8:27 PM EST us James Andrews MD URINE ORDERABLES Final Result Performing Organization Address [facility] Co de Phone Number [address] [address], [address] [address] * Potassium, Urine, Random (10/22/2025 6:19 PM EST) Potassium, Urine (Random) 22 mmol/L 10/22/2025 9:13 PM [facility] Comment:Reference range not established for random specimen. Urine Urine specimen / Unknown 10/22/2025 6:19 PM EST 10/22/2025 8:27 PM EST us James Andrews MD URINE ORDERABLES Final Result Performing Organization Address [facility] Co de Phone Number [address] [address], [address] [address] * Creatinine, urine, random (10/22/2025 6:19 PM EST) Creatinine, Urine, Random 88 mg/dL 10/22/2025 9:13 PM [facility] Comment:Reference range not established for random specimen. Urine Urine specimen / Unknown 10/22/2025 6:19 PM EST 10/22/2025 8:27 PM EST us James Andrews MD URINE ORDERABLES Final Result Performing Organization Address [facility] [place] [address], [place] [address] * Chloride, Urine, Random (10/22/2025 6:19 PM EST) Chloride, Urine, Random <20 mmol/L 10/22/2025 9:13 PM [facility] Comment:Reference range not established for random specimen. Urine Urine specimen / Unknown 10/22/2025 6:19 PM EST 10/22/2025 8:27 PM EST us James Andrews MD URINE ORDERABLES Final Result Performing Organization Address [facility] [place] [address], [place] [address] * APTT (10/22/2025 6:18 PM EST) Anticoagulant NO ANTI COAGULANT MEDS 10/22/2025 6:18 PM [facility] Partial Thromboplastin Time (PTT) 26 25 - 36 seconds 10/22/2025 7:33 PM [facility] Comment:Anti-Xa is the labor atory standard for heparin monitoring. Use of aPTT for unfractionated heparin in patients receiving DOACs may be performed at the clinician's discretion. Blood Blood specimen / Unknown 10/22/2025 6:18 PM EST 10/22/2025 7:03 PM EST us James Andrews MD LAB BLOOD ORDERABLES Final Res ult Performing Organization Address [facility] [place] [address], [place] [address] * (ABNORMAL) INR (10/22/2025 6:18 PM EST) Anticoagulant OTHER AGENT OR UNKNOWN 10/22/2025 6:18 PM [facility] Prothrombin Time (PT) 15.0(H) 10.0 - 13.5 seconds 10/22/2025 7:33 PM [facility] INR 1.3 10/22/2025 7:33 PM [facility] Comment:INR Therapeutic Rang es: Standard dose anticoagulant 2.0 to 3.0, High dose anticoagulant 2.5-3.5. Blood Blood specimen / Unknown 10/22/2025 6:18 PM EST 10/22/2025 7:03 PM EST us James Andrews MD LAB BLOOD ORDERABLES Final Res ult Performing Organization Address [facility] [place] [address], [place] [address] * Lipase (10/22/2025 6:18 PM EST) Pathologist [facility] [place] Lipase 32 13 - 60 U/L 10/22/2025 7:40 PM [facility] Blood Blood specimen / Unknown 10/22/2025 6:18 PM EST 10/22/2025 7:03 PM EST us James Andrews MD LAB BLOOD ORDERABLES Final Res ult Performing Organization Address [facility] [place] [address], [place] [address] * (ABNORMAL) Comprehensive Metabolic Panel (10/22/2025 6:18 PM EST) [facility] Glucose 85 65 - 99 mg/dL 10/22/2025 7:40 PM [facility] Comment:Fasting: <100 mg/dL, Non-Fasting: <200 mg/dL (ADA 2005) Blood Urea Nitrogen (BUN) 45(H) 8 - 21 mg/dL 10/22/2025 7:40 PM [facility] Creatinine 3.83(H) 0.40 - 1.10 mg/dL 10/22/2025 7:40 PM [facility] eGFR 13(L) >59 10/22/2025 7:40 PM [facility] Comment:CKD-EPI (2020) in mL /min/1.73 sq meters. Sodium 135(L) 136 - 145 mmol/L 10/22/2025 7:40 PM [facility] Potassium 3.2(L) 3.4 - 5.3 mmol/L 10/22/2025 7:40 PM [facility] Chloride 96(L) 98 - 107 mmol/L 10/22/2025 7:40 PM [facility] CO2 20(L) 22 - 33 mmol/L 10/22/2025 7:40 PM [facility] Calcium 7.8(L) 8.7 - 10.5 mg/dL 10/22/2025 7:40 PM [facility] Alkaline Phosphatase 125(H) 32 - 122 U/L 10/22/2025 7:40 PM [facility] Aspartate Aminotrans (AST) 56(H) 10 - 50 U/L 10/22/2025 7:40 PM [facility] Alanine Aminotrans (ALT) 28 10 - 50 U/L 10/22/2025 7:40 PM [facility] Bilirubin, Total 0.3 0.2 - 1.0 mg/dL 10/22/2025 7:40 PM [facility] Protein, Total 7.2 6.3 - 8.3 g/dL 10/22/2025 7:40 PM [facility] Albumin 3.5 3.5 - 5.0 g/dL 10/22/2025 7:40 PM [facility] BUN/Creatinine Ratio 12 10.0 - 25.0 Ratio 10/22/2025 7:40 PM [facility] Globulin 3.7 1.5 - 3.9 g/dL 10/22/2025 7:40 PM [facility] Albumin/Globulin Ratio 0.9(L) 1.0 - 3.0 Ratio 10/22/2025 7:40 PM [facility] Anion Gap 19(H) 7 - 17 10/22/2025 7:40 PM [facility] Blood Blood specimen / Unknown 10/22/2025 6:18 PM EST 10/22/2025 7:03 PM EST us James Andrews MD LAB BLOOD ORDERABLES Final Res ult [address] [address], [facility] [address] [place] [address] from Last 3 Months Insurance MEDICARE PART A & B [facility] Advance Directives * Full Code (Latest Code Status on File) Date Activated Date Inactivated Comments 10/25/2025 9:21 PM * Full Code Date Activated Date Inactivated Comments 10/23/2025 1:18 AM 10/25/2025 9:21 PM Care Teams Peat Shredder Tender Relationship Specialty Start Date End Date Linda Murphy DO [address] [place] [id number] PCP - General Internal Medicine 10/22/25
--- OUTSIDE RECORDS SUMMARY | 2025-11-08 22:12 | XMS_ITS | Encounter Summary ---
Author Organization [employer] Address [address] [facility] [address]t [place] [address] Care Team Providers Care Catering Associate Name Role Phone Linda Murphy DO Primary Care Provider [phone] Antionette Murphy PharmD Unavailable [phone] Reason for Visit * Reason Comments Med Refill Encounter Details Date Type Department Care Team ([facility] Contact Info) Description 11/24/2023 Refill [facility] [address] [place] [address] Linda Murphy DO [address] [place] [address] Social History Tobacco Use Types Packs/Day Years [...] Description 11/10/2025 2:30 PM EST Office Visit [facility] [address] [place] [address] [phone] Josseline Solis MD [address] [place] [address] documented as of this encounter Goals Goal [...] documented as of this encounter Care Teams Catering Associate Relationship Specialty Start Date End Date Linda Murphy DO [address] [place] [address] [phone] PCP - General Family Medicine 11/24/12 Antionette Murphy PharmD [address] [place] [address] [phone] Pharmacist Internal Medicine 07/15/24 02/25/25 documented as of this encounter
--- OUTSIDE RECORDS SUMMARY | 2025-11-08 22:12 | XMS_ITS | Encounter Summary ---
Author Organization [employer] Address [address] [facility] [address] [place] [address] Care Team Providers Care Social Security Benefits Interviewer Name Role Phone Linda Murphy DO Primary Care Provider DelNeri zavala PharmD Unavailable Unavail able Antionette Murphy PharmD Unavailable [phone] Reason for Visit * Reason Onset Date Comments letter michael lopez 07/26/2023 Encounter Details Date Type Department Care Team (Late st Contact Info) Description 07/26/2023 Telephone [facility] [address] [place] [address] Linda Murphy DO [address] [place], [place] [phone] letter michael lopez Social History Tobacco Use [...] to Medical side. Please contact pt at [phone] documented in this encounter Plan of Treatment Upcoming Encounters Date Type Department Care Team (Late st Contact Info) Description 11/10/2025 2:30 PM EST Office Visit [facility] [address] [place] [address] Josseline Solis MD [address] [place] [address] documented as of this encounter Goals Goal [...] documented as of this encounter Care Teams Social Security Benefits Interviewer Relationship Specialty Start Date End Date Linda Murphy DO [address] [place] [phone] PCP - General Family Medicine 11/24/12 Neri Yang, PharmD [address] [place] [phone] Pharmacist Internal Medicine 11/23/22 10/17/23 Antionette Murphy PharmD [address] [place] [phone] Pharmacist Internal Medicine 07/15/24 02/25/25 documented as of this encounter
--- OUTSIDE RECORDS SUMMARY | 2025-11-08 22:12 | XMS_ITS | Encounter Summary ---
Author Organization [facility] Address [address] [facility] [address] [place] [phone] Phone Care Team Providers Care Street Light Inspector Name Role Phone Linda Murphy DO Primary Care Provider Reason for Visit * Auth/Cert (Routine) Specialty Diagnoses / Procedures Referred By Rolf t Referred To Contact Referral ID Status Reason Start Date Expiration Date Visits Re quested Visits Authorized [id number] 1 1 Encounter Details Date Type Department Care Team (Late st Contact Info) Description 11/06/2025 Home Care Visit [facility] [address] [place] [address] Carmencita Arriaza RN [address] [place] [address] [email or web address] TELEPHONE ENCOUNTER Social History Tobacco Use Types [...] 11/11/2025 Appointment [facility] [address] [place] [address] Fariba Mckeon RN [address] [place] [address] 11/15/2025 4:30 AM EST Appointment [facility] [address] [place] [address] Fariba Mckeon RN [address] [place] [address] 11/18/2025 1:30 AM EST Appointment [facility] [address] [place] [address] Fariba Mckeon, KRYSTYNA [address] [place] [address] 11/22/2025 4:00 AM EST Appointment [facility] [address] [place] [address] Dadzie, Fariba Andoh, RN [address] [place] [address] 11/25/2025 12:30 AM EST Appointment [facility] [address] [place] [phone] Fariba Mckeon, RN [address] [place] [address] 11/29/2025 3:00 AM EST Appointment [facility] [address] [place] [phone] Fariba Mckeon, RN [address] [place] [address] 12/02/2025 12:30 AM EST Appointment [facility] [address] [place] [phone] Fariba Mckeon, RN [address] [place] [address] 12/06/2025 3:30 AM EST Appointment [facility] [address] [place] [phone] Fariba Mckeon, RN [address] [place] [address] 12/09/2025 1:00 AM EST Appointment [facility] [address] [place] [phone] Fariba Mckeon, RN [address] [place] [address] 12/13/2025 2:30 AM EST Appointment [facility] [address] [place] [phone] Fariba Mckeon, RN [address] [place] [address] 12/16/2025 12:30 AM EST Appointment [facility] [address] [place] [phone] Fariba Mckeon, KRYSTYNA [address] [place] [address] 12/20/2025 1:00 AM EST Appointment [facility] [address] [place] [phone] Fariba Mckeon, KRYSTYNA [address] [place] [address] 12/23/2025 12:30 AM EST Appointment [facility] [address] [place] [phone] Fariba Mckeon, KRYSTYNA [address] [place] [address] 12/27/2025 1:00 AM EST Appointment [facility] [address] [place] [phone] Fariba Mckeon, RN [address] [place] [address] 12/30/2025 12:30 AM EST Appointment [facility] [address] [place] [phone] Fariba Mckeon, RN [address] [place] [address] documented as of this encounter Visit Diagnoses Not on filedocumented in this encounter Care Teams Street Light Inspector Relationship Specialty Start Date End Date Linda Murphy DO [address] [place] [id number] PCP - General Family Medicine 07/03/24 documented as of this encounter Additional Source Comments The information contained in this document represents components of the legal health record. It is not the complete legal health record.[facility]
--- OUTSIDE RECORDS SUMMARY | 2025-11-08 22:12 | XMS_ITS | Encounter Summary ---
Author Organization [employer] Address [address] [facility] 7t [place] [address] Care Team Providers Care Glaze Mixer Name Role Phone Linda Murphy DO Primary Care Provider [phone] Antionette Murphy PharmD Unavailable [phone] Reason for Visit * Reason Comments Med Refill Encounter Details Date Type Department Care Team ([facility] st Contact Info) Description 02/23/2024 Refill [facility] MED[facility] [address] [place] [address] Linda Murphy DO [address] [place] [address] Chronic obstructive pulmonary disease, unspecified COPD type [...] Description 11/10/2025 2:30 PM EST Office Visit [facility] [address] [place], [place] [phone] Josseline Solis MD [address] [place] [phone] documented as of this encounter Goals Goal [...] documented as of this encounter Care Teams Glaze Mixer Relationship Specialty Start Date End Date Linda Murphy DO [address] [place] [address] [phone] PCP - General Family Medicine 11/24/12 Antionette Murphy PharmD [address] [place] [address] [phone] Pharmacist Internal Medicine 07/15/24 02/25/25 documented as of this encounter
--- OUTSIDE RECORDS SUMMARY | 2025-11-08 22:13 | XMS_ITS | Encounter Summary ---
Author Organization [employer] Address [address] [facility] 7t [place] [address] Care Team Providers Care Sales And Support Center Agent Name Role Phone Linda Murphy DO Primary Care Provider [phone] Antionette Murphy PharmD Unavailable [phone] Reason for Visit * Reason Onset Date Comments Durable Medical Equipment 03/06/2024 Encounter Details Date Type Department Care Team ([facility] st Contact Info) Description 03/06/2024 Telephone [facility] MEDICINE [address] [place] [address] Linda Murphy DO [address] [place] [address] Durable Medical Equipment Social History Tobacco Use [...] Description 11/10/2025 2:30 PM EST Office Visit [facility] MEDICINE [address] [place], [place] [phone] Josseline Solis MD [address] [place] [address] documented as of this encounter Goals Goal [...] as of this encounter Care Teams Sales And Support Center Agent Relationship Specialty Start Date End Date Linda Mruphy DO [address] [place], [place] [phone] PCP - General Family Medicine 11/24/12 Antionette Murphy, EricD [address] [place] [phone] Pharmacist Internal Medicine 07/15/24 02/25/25 documented as of this encounter
--- OUTSIDE RECORDS SUMMARY | 2025-11-08 22:13 | XMS_ITS | Encounter Summary ---
Author Organization [employer] Address [address] [facility] [address] 7[address] [place] [address] Care Team Providers Care Finance Attorney Name Role Phone Linda Murphy DO Primary Care Provider [phone] Antionette Murphy PharmD Unavailable [phone] Reason for Visit * Reason Comments Med Refill Encounter Details Date Type Department Care Team (Late st Contact Info) Description 02/11/2025 Refill [facility] [address] [place] [address] Linda Murphy DO [address] [place] [address] Chronic low back pain, unspecified back pain [...] Description 11/10/2025 2:30 PM EST Office Visit [facility] MEDICINE [address] [place] [address] Josseline Solis MD [address] [place] [address] documented as of this encounter Goals Goal [...] documented as of this encounter Care Teams Finance Attorney Relationship Specialty Start Date End Date Linda Murphy DO [address] [place] [address] PCP - General Family Medicine 11/24/12 Antionette Murphy, PharmD [address] [place] [phone] Pharmacist Internal Medicine 07/15/24 02/25/25 documented as of this encounter
--- OUTSIDE RECORDS SUMMARY | 2025-11-08 22:13 | XMS_ITS | Clinical Summary ---
Author Organization [address] [facility] Address [address] [place] [address] Phone Care Team Providers Care Value Stream Leader Name Role Phone Linda Murphy DO Primary Care Provider [phone] Allergies No known active allergies Medications acetaminophen [...] 10:15 AM EDT Office Visit [facility] [address] [place] [phone] Gutierrez Ruiz DPM Controlled type 2 [...] 03/04/2025 8:59 AM EDT Plan of Treatment Health Maintenance Due Date Last Done Comments Colorectal Cancer Screening: Colonoscopy 1972 Non-Opioid Controlled Substance Agreement 1972 Diabetes: Annual Retina Eye Exam 1982 [...] 04/26/2026 04/26/2025, 03/02/2025, 01/20/2025, Additional history exists Drug Screen 06/21/2026 06/21/2025 Cholesterol Screening (Lipid Panel) 04/26/2030 04/26/2025, 03/02/2025, [...] Group ID:ICO Type:Not on file Address: [address] [place] [address] Care Teams Value Stream Leader Relationship Specialty Start Date End Date Linda Murphy DO [address] [place] [address] PCP - General Internal Medicine 04/09/19
--- OUTSIDE RECORDS SUMMARY | 2025-11-08 22:14 | XMS_ITS ---
Author Organization [facility] Address [address] [place] [address] Care Team Providers Care Passenger Interline Clerk Name Role Phone Linda Murphy DO Primary Care Provider + [phone] Active Problems Problem Noted Date Diagnosed Date [...] 10/23/2025. - OBGYN following, recommending drain study, carpet mechanic onc and surgery evaluation - ID following, [...] -Follow-up IR recs for source control -Follow-up PHYSIOTHERAPY ASSISTANT recs -Follow-up urine culture 10/22 -Follow-up blood [...] 10/23/2025. - OBGYN following, recommending drain study, carpet mechanic onc and surgery evaluation - ID following, [...] -Follow-up IR recs for source control -Follow-up PHYSIOTHERAPY ASSISTANT recs -Follow-up urine culture 10/22 -Follow-up blood [...] 10/23/2025. - OBGYN following, recommending drain study, carpet mechanic onc and surgery evaluation - ID following, [...] -Follow-up IR recs for source control -Follow-up PHYSIOTHERAPY ASSISTANT recs -Follow-up urine culture 10/22 -Follow-up blood [...] does not improve consider holding these agents Current Treatment and Therapy Plans No current plan information found. Past Treatment and Therapy Plans No past plan information found. Lifetime Dose Tracking * Chemical Lifetime Dose Automatic Entry Manual Entr y Air Kerma-mGy 57.9 mGy 0 mGy 57.9 mGy Dose Area Product(DAP)-micrograys-m2 458.62 microgray-m2 0 microgray-m2 458.62 microgray-m2 Fluoro Time 5.2 minutes 0 minutes 5.2 minutes
--- OUTSIDE RECORDS SUMMARY | 2025-11-08 22:14 | XMS_ITS | Encounter Summary ---
Author Organization [employer] Address [address] [facility] 7t [place] [address] Care Team Providers Care Multiple Drum Sander Name Role Phone Linda Murphy DO Primary Care Provider [phone] Antionette Murphy PharmD Unavailable [phone] Reason for Visit * Reason Onset Date Comments Med Refill 12/18/2024 Encounter Details Date Type Department Care Team (Late st Contact Info) Description 12/18/2024 Refill [facility] MEDICINE [address] [place] [address] Linda Murphy DO [address] [place] [address] Social History Tobacco Use Types Packs/Day Years [...] 11/10/2025 2:30 PM EST Office Visit [facility] MEDICINE [address] [place] [address] [phone] Josseline Solis MD [address] [place] [phone] documented as of this encounter Goals Goal [...] documented as of this encounter Care Teams Multiple Drum Sander Relationship Specialty Start Date End Date Linda Murphy DO [address] [place] [address] [phone] PCP - General Family Medicine 11/24/12 Antionette Murphy PharmD [address] [place] [address] [phone] Pharmacist Internal Medicine 07/15/24 02/25/25 documented as of this encounter
--- OUTSIDE RECORDS SUMMARY | 2025-11-08 22:14 | XMS_ITS | Encounter Summary ---
Author Organization [employer] Address [address] [facility] [address] [place] [address] Care Team Providers Care Utility Systems Repairer Operator Name Role Phone Linda Murphy DO Primary Care Provider [phone] Antionette Murphy PharmD Unavailable [phone] Reason for Visit * Reason Onset Date Comments Med Refill 12/18/2024 Encounter Details Date Type Department Care Team (Late st Contact Info) Description 12/18/2024 Refill [facility] & P[facility] [address] [place] [address] Linda Murphy DO [address] [facility] [place] [address] Acute post-traumatic headache, not intractable; Chronic obstructive [...] Description 11/10/2025 2:30 PM EST Office Visit [facility] MEDICINE [address] [place] [address] Josseline Solis MD [address] [place], [place] [phone] documented as of this encounter Goals Goal [...] as of this encounter Care Teams Utility Systems Repairer Operator Relationship Specialty Start Date End Date Linda Murphy DO [address] [place] [address] [phone] PCP - General Family Medicine 11/24/12 Antionette Murphy PharmD [address] [place] [phone] Pharmacist Internal Medicine 07/15/24 02/25/25 documented as of this encounter
--- NOTE | 2025-11-08 23:52 | ED.GENADULT ---
HPI - General Adult General Chief complaint: General Medical Stated complaint: equipment failure Time Seen by Provider: 11/08/25 23:52 History of Present Illness ED Provider: Lexi DOE narrative: The patient is a 55-year-old woman with multiple medical problems who was transferred from the emergency room here on October 22. At that time she was quite septic and there were no ICU beds available and so she was transferred to [facility]. Related Data Home Medications ?Medication ?Instructions ?Recorded ?Confirmed lisinopril 2.5 mg tablet 2.5 mg PO DAILY@1200 09/05/20 10/01/25 metformin 500 mg tablet,extended 1,000 mg PO BID 09/05/20 10/01/25 release 24 hr acetaminophen 650 mg 650 mg PO Q8H PRN Pain 04/24/21 10/01/25 tablet,extended release albuterol sulfate 90 mcg/actuation 2 puff inhalation QID PRN Wheezing 04/24/21 10/01/25 aerosol inhaler atorvastatin 40 mg tablet 40 mg PO BEDTIME 04/24/21 10/01/25 glipizide 5 mg tablet 10 mg PO BID 04/24/21 10/01/25 haloperidol 5 mg tablet 2.5 mg PO BID 04/24/21 10/01/25 bupropion HCl 300 mg 24 hr tablet, 300 mg PO DAILY 06/07/22 10/01/25 extended release aripiprazole 20 mg tablet 20 mg PO BEDTIME 09/24/22 10/01/25 aspirin 81 mg tablet,delayed 81 mg PO DAILY 09/24/22 10/01/25 release bupropion HCl 150 mg 24 hr tablet, 150 mg PO DAILY 09/24/22 10/01/25 extended release clonazepam 1 mg tablet (Klonopin) 1 mg PO BID PRN Anxiety 04/04/23 10/01/25 semaglutide 7 mg tablet (Rybelsus) 7 mg PO DAILY 12/15/24 10/01/25 loratadine 10 mg tablet 10 mg PO DAILY 02/01/25 10/01/25 montelukast 10 mg tablet 10 mg PO BEDTIME 02/01/25 10/01/25 pantoprazole 20 mg tablet,delayed 20 mg PO BID 02/01/25 10/01/25 release ascorbic acid (vitamin C) 250 mg 250 mg PO BID@1200,2100 02/11/25 10/01/25 tablet ferrous fumarate 324 mg (106 mg 324 mg PO DAILY 02/11/25 10/01/25 iron) tablet (Ferrocite) ipratropium 0.5 mg-albuterol 3 mg 3 ml inhalation QID PRN asthma 02/11/25 10/01/25 (2.5 mg base)/3 mL nebulization soln omega-3 fatty acids 1,000 mg 1,000 mg PO DAILY 02/11/25 10/01/25 capsule vit no.95-ferrous 1 tab PO DAILY 02/11/25 10/01/25 fumarate 28 mg-folic acid 800 mcg tablet () tramadol 50 mg tablet 50 mg PO Q8H PRN severe pain 02/11/25 10/01/25 baclofen 10 mg tablet 10 mg PO TID PRN muscle spasm 10/01/25 10/01/25 diclofenac sodium 1 % topical gel 2 g topical QID PRN pain 10/01/25 10/01/25 gabapentin 600 mg tablet 600 mg PO TID 10/01/25 10/01/25 levothyroxine 200 mcg/mL oral 400 mcg PO DAILY@0200 10/01/25 10/01/25 solution (Tirosint-Michelle) mometasone 100 mcg/actuation HFA 2 puff inhalation BID 10/01/25 10/01/25 aerosol inhaler (Asmanex HFA) tiotropium bromide 18 mcg capsule 1 cap inhalation DAILY 10/01/25 10/01/25 with inhalation device (Spiriva with HandiHaler) Previous Rx's ?Medication ?Instructions ?Recorded ondansetron 4 mg disintegrating 4 mg PO Q8H PRN nausea and 09/16/25 tablet vomiting #4 tabs amoxicillin 875 mg-potassium 1 tab PO Q12H 7 days #14 tabs 10/08/25 clavulanate 125 mg tablet metronidazole 500 mg tablet 500 mg PO Q12H 7 days #14 tabs 10/08/25 Allergies Allergy/AdvReac Type Severity Reaction Status Date / Time oxycodone (Percocet) Allergy Intermediate stomach Verified 11/08/25 21:25 pain SEASONAL ALLERGIES Allergy Unknown UNKNOWN Uncoded 11/08/25 21:25 Review of Systems Review of Systems: Yes all other systems are reviewed and are negative PMFSH Past Medical History Medical History Primary malignant neoplasm of left lower lobe of lung History of thyroid cancer Hx of radiation therapy Postoperative hypothyroidism Sciatica of right side Back pain Arthritis Anemia Anxiety On home oxygen therapy Incomplete right bundle branch block (RBBB) Uterine fibroid DANIEL (obstructive sleep apnea) Cervical cancer Schizoaffective disorder Pancreatitis Type 2 diabetes mellitus JESICA positive Vitamin D deficiency Morbid obesity Sacroiliitis Multinodular goiter HLD (hyperlipidemia) COPD (chronic obstructive pulmonary disease) GERD (gastroesophageal reflux disease) Bipolar 1 disorder Hypercalcemia Goiter Surgical History History of lobectomy of lung History of tubal ligation History of cholecystectomy History of total thyroidectomy Family History Family History Father Bipolar 1 disorder Mother Diabetes mellitus Hypertension Hyperlipidemia COPD (chronic obstructive pulmonary disease) Paternal Aunt Breast cancer Sister Cervical cancer Social History Social History Household Members: Spouse and Children Household Members Other:: duplex Housing: Apartment Are you a primary veterinarian laboratory animal care to a significant other at home: No Do you presently have visiting nurse or other home services: No Alcohol intake: never Comment: Pt refusing bed alarm, agrees to ring call raza for assist. 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: Yes (Stress) Physical Exam ED Vital Signs: Vital Signs - 24 hr 11/08/25 21:23 11/09/25 00:07 11/09/25 08:13 Temperature 97.8 F 98.2 F 97.8 F Pulse Rate 94 89 83 Respiratory Rate 20 18 16 Blood Pressure 100/52 L 91/43 L 92/53 L Pulse Oximetry 98 95 97 Oxygen Delivery Method Room Air Room Air Room Air 11/09/25 08:59 11/09/25 10:32 Temperature 98.6 F Pulse Rate 68 Respiratory Rate 16 16 Blood Pressure 111/78 111/78 Pulse Oximetry Oxygen Delivery Method Room Air Room Air BMI result Body Mass Index 31.3 Const Other: The patient is a chronically ill-appearing 55-year-old. She is awake and alert. She is pleasant cooperative. She does not appear in acute distress or obviously acutely ill although she looks quite chronically ill. HENMT Other: The face is symmetrical. ?Mucous membranes moist. Eyes Other: Pupils are round equal, conjunctivae are clear, extraocular movements intact Neck Neck: Yes normal visual inspection and Yes full ROM Resp Effort & Inspection: normal respiratory effort Auscultation: clear to auscultation bilaterally Cardio Rate: regular rate Rhythm: regular rhythm Heart sounds: S1 normal heart sound present and S2 normal heart sound present GI Other: The patient has a colostomy in the left lower quadrant. She also has a large surgical dressing across the midabdomen. The abdomen seems soft and nontender. Back/Spine/Pelvis Other: The patient has for drains from her back on her sides I think 2 of these are nephrostomy tube drains. A drain on the side of her abdomen on the right side has been disconnected from his AALIYAH drain. This is the reason the patient came to the emergency room. Skin Other: Skin is pale and dry. She has a dressing on what she says has a large wound across her abdomen. She has multiple drains in her back and on her sides. Neuro Other: The patient is awake and alert with a normal mental status. Cranial nerves are intact. She moves her extremities symmetrically. No focal finding. Extrem Other: There is no calf swelling or tenderness. No asymmetry. No peripheral edema. Course Reevaluation(s) Reevaluation #1: 9:11 AM 11/09/2025 (Dr. Teo Mazariegos): Patient re-evaluated, she herself has no complaints, the bulb of the AALIYAH drain was displaced there was reattached at this point patient is able to be discharged Medications Administered Discontinued Medications Generic Name Dose Route Start Last Admin Trade Name Freq PRN Reason Stop Dose Admin Gabapentin 900 mg 11/09/25 00:34 11/09/25 00:53 Gabapentin 300 Mg Capsule PO 11/09/25 00:35 900 mg ONCE ONE Administration Heparin Sodium (Porcine) 50 units 11/09/25 09:30 11/09/25 10:15 Heparin Sodium,Porcine Flush 50 Units/5 Ml Syringe IVFLUSH 11/09/25 09:31 50 units ONCE ONE Administration Ampicillin Sodium/Sulbactam 100 mls @ 200 mls/hr 11/09/25 08:30 11/09/25 08:56 Sodium 3 gm/ Sodium Chloride IV 11/09/25 08:59 200 mls/hr ONCE ONE Administration Medical Decision Making Medical Decision Making [facility] Narrative: The patient is a 55-year-old female who was discharged from [facility] yesterday after extensive surgery for an intra-abdominal abscess. She has multiple drains. I think 2 of these are nephrostomy tubes. She also has 2 AALIYAH drains as well. She has been receiving home antibiotics through a PICC line in her left arm. She came to the emergency room because the tubing a AALIYAH drain on the right lower drain became disconnected. I applied a green alcohol infused cap on the drain and attempted to find appropriate tubing to connect to a new AALIYAH drain. I worked with the housekeeping/laundry and was unable to find the correct tubing and connectors that would address the patient's problem. The patient was given 3 g of her scheduled ampicillin IV. The patient was kept in the emergency room until the morning so that the daytime team might be able to contact the OR or Interventional Radiology for assistance in obtaining the correct tubing and connectors to allow reconnection of the AALIYAH drain. Lab Data 11/08/25 21:40 11/08/25 21:40 Labs: Lab Results 11/08/25 Range/Units 21:40 WBC 17.3 H (4.8-10.8) X10*3/uL RBC 3.65 L (4.20-5.50) X10*6/uL Hgb 9.7 L (12.0-16.0) g/dl Hct 29.7 L D (37.0-47.0) % MCV 81.4 (80.0-98.0) fL MCH 26.6 L (27.0-33.0) pg MCHC 32.7 (31.0-35.0) g/dl RDW 17.0 H (11.0-16.0) % Plt Count 625 H D (160-400) X10*3/uL MPV 9.1 L (9.4-12.3) fL Immature Gran % (Auto) 0.6 H (0.0-0.4) % Neut % (Auto) 57.3 (45-73) % Lymph % (Auto) 18.0 L (20-40) % [place] % (Auto) 7.8 (2-11) % Eos % (Auto) 15.2 H (0-4) % Baso % (Auto) 1.1 (0-2) % Lymph # (Auto) 3.1 (1.2-4.9) X10*3/uL [place] # (Auto) 1.4 H (0.1-1.2) X10*3/uL Eos # (Auto) 2.6 H (0.0-0.4) X10*3/uL Baso # (Auto) 0.2 (0.0-0.2) X10*3/uL Abs Immat Gran (auto) 0.10 H (0.00-0.03) X10*3/uL Absolute Neuts (auto) 9.9 H (2.0-8.3) x10*3/uL Absolute Nucleated RBC 0.000 (0.0-0.012) X10*3/uL Nucleated RBC % (auto) 0.0 (0.0-0.2) /100WBC Smear Tech's Comments VERIFIED Sodium 140 (135-145) mmol/L Potassium 4.4 (3.3-5.1) mmol/L Chloride 100 (96-108) mmol/L Carbon Dioxide 26 (22-29) mmol/L Anion Gap 18 (12-20) BUN 10 (9-16) mg/dL Creatinine 1.13 (0.5-1.4) mg/dL Estim Creat Clear Calc 66.6 Estimated GFR 50 Random Glucose 147 H (60-115) mg/dL Calcium 9.2 D (8.4-10.2) mg/dL Total Bilirubin 0.1 (0.0-1.0) mg/dL AST 32 H (5-31) U/L ALT 26 (0-31) U/L Alkaline Phosphatase 129 H (39-117) U/L Total Protein 8.5 H (6.5-8.0) g/dL Albumin 3.8 (3.5-5.0) g/dL Discharge Plan Discharge Clinical Impression: AALIYAH drain, broken Patient Disposition: Home, Self-Care Additional Instructions: I would like you to get in touch with the your surgeons discuss ER visit, you had a bulb of the AALIYAH drain that was detached, it was reattached but I would like to make sure you communicate to someone regarding follow up Prescriptions: No Action ondansetron 4 mg tablet,disintegrating 4 mg PO Q8H PRN (Reason: nausea and vomiting) Qty: 4 0RF Rybelsus 7 mg tablet 7 mg PO DAILY montelukast 10 mg tablet 10 mg PO BEDTIME loratadine 10 mg Tablet 10 mg PO DAILY pantoprazole 20 mg tablet,delayed release (DR/EC) 20 mg PO BID ipratropium-albuterol 0.5 mg-3 mg(2.5 mg base)/3 mL solution for nebulization 3 ml inhalation QID PRN (Reason: asthma) tramadol 50 mg tablet 50 mg PO Q8H PRN (Reason: severe pain) ascorbic acid (vitamin C) 250 mg tablet 250 mg PO BID@1200,2100 ferrous fumarate [Ferrocite] 324 mg (106 mg iron) tablet 324 mg PO DAILY PNV no.95-ferrous fumarate-FA [] 28 mg iron- 800 mcg tablet 1 tab PO DAILY omega-3 fatty acids 1,000 mg Capsule 1,000 mg PO DAILY baclofen 10 mg tablet 10 mg PO TID PRN (Reason: muscle spasm) diclofenac sodium 1 % gel 2 g topical QID PRN (Reason: pain) tiotropium bromide [Spiriva with HandiHaler] 18 mcg capsule, w/inhalation device 1 cap inhalation DAILY Asmanex HFA 100 mcg/actuation HFA aerosol inhaler 2 puff INHALATION BID Tirosint-Michelle 200 mcg/mL solution 400 mcg PO DAILY@0200 gabapentin 600 mg tablet 600 mg PO TID amoxicillin-pot clavulanate 875-125 mg Tablet 1 tab PO Q12H 7 Days Qty: 14 0RF metronidazole 500 mg Tablet 500 mg PO Q12H 7 Days Qty: 14 0RF lisinopril 2.5 mg tablet 2.5 mg PO DAILY@1200 metformin 500 mg tablet extended release 24 hr 1,000 mg PO BID atorvastatin 40 mg tablet 40 mg PO BEDTIME acetaminophen 650 mg tablet extended release 650 mg PO Q8H PRN (Reason: Pain) albuterol sulfate 90 mcg/actuation HFA aerosol inhaler 2 puff inhalation QID PRN (Reason: Wheezing) haloperidol 5 mg tablet 2.5 mg PO BID clonazepam [Klonopin] 1 mg tablet 1 mg PO BID PRN (Reason: Anxiety) glipizide 5 mg tablet 10 mg PO BID bupropion HCl 300 mg tablet extended release 24 hr 300 mg PO DAILY Patient Comments: to equal total dose of 450 mg daily aspirin 81 mg tablet,delayed release (DR/EC) 81 mg PO DAILY aripiprazole 20 mg tablet 20 mg PO BEDTIME bupropion HCl 150 mg tablet extended release 24 hr 150 mg PO DAILY Interventions: ED Discharge Assessment Last Done: 11/09/25 10:32 Discharge Date/Time: 11/09/25 10:37 Print Language: Bulgarian
[2025-11-09 00:07] VITALS: BP 91/43; PULSE 89; RESP 18; TEMP 36.8; O2SAT 95
[2025-11-09 08:13] VITALS: BP 92/53; PULSE 83; RESP 16; TEMP 36.6; O2SAT 97
[2025-11-09 08:59] VITALS: BP 111/78; RESP 16
[2025-11-09] MEDS: Heparin Sodium,Porcine Flush 50 UNITS/5 ML SYRINGE IVFLUSH (10:15)
[2025-11-09 10:32] VITALS: BP 111/78; PULSE 68; RESP 16; TEMP 37
== END 2025-11-09 10:37 | disposition home or self-care (01) ==
PROVIDERS: Emergency Medicine; Emergency Provider Emergency Medicine
DX: N99.522 Malfunction of incontinent external stoma of urinary tract (principal); J44.9 Chronic obstructive pulmonary disease, unspecified; Z99.81 Dependence on supplemental oxygen; Z79.899 Other long term (current) drug therapy
CPT/HCPCS: 36415; 80053; 85025; 96365; 96366; 99284; J0295; J1642